=== PATIENT | male | born 1960 | race Caucasian/White ===

== ENCOUNTER 2023-01-24 11:27 | Emergency (ER) | payer OTHER, SELFPAY ==
[2023-01-24 11:32] VITALS: BP 149/83; PULSE 68; RESP 20; TEMP 36.6; O2SAT 96; BMI 33.8
--- NOTE | 2023-01-24 11:58 | ED.GENADUL1 ---
HPI - General Adult General Chief complaint: Nausea/Vomiting/Diarrhea Stated complaint: Vomiting Time Seen by Provider: 01/24/23 11:54 Source: patient Mode of arrival: walk-in History of Present Illness HPI narrative: patient developed diarrhea 2 days ago and then developed nausea this morning. He had a normal BM this morning. No urinary symptoms. No abdominal pain. No flank pain. No fever. He is uncertain about any ill contacts. he denied any recent travel or eating any potentially contaminated or spoiled foods. Related Data Home Medications Medication Instructions Recorded Confirmed albuterol sulfate 90 mcg/actuation 1 puff inhalation Q4H PRN 01/24/23 01/24/23 aerosol inhaler shortness of breath or wheezing alprazolam 0.5 mg tablet 0.25 mg PO BID PRN anxiety 01/24/23 01/24/23 aspirin 81 mg chewable tablet 1 tab PO DAILY 01/24/23 01/24/23 atorvastatin 80 mg tablet 80 mg PO QPM 01/24/23 01/24/23 Previous Rx's Medication Instructions Recorded ondansetron 4 mg disintegrating 4 mg PO Q6H PRN nausea and 01/24/23 tablet vomiting #20 tabs Allergies Allergy/AdvReac Type Severity Reaction Status Date / Time Penicillins Allergy Severe Verified 01/24/23 11:32 [facility] Medical History (Updated 01/24/23 @ 12:34 by Aime Barragan) Exam Narrative Exam Narrative: Nurses notes and vital signs reviewed and patient is not hypoxic. afebrile General: Well-appearing and in no apparent distress. Skin: Warm, dry, no pallor noted. No rash. Head: Normocephalic, atraumatic. Eye: Pupils are equal, round and EOMI. No scleral icterus. Ears, Nose, Mouth, and Throat: Oral mucosa is moist Cardiovascular: Regular Rate and Rhythm without murmur, gallop or rub. Respiratory: No accessory muscle use or respiratory distress. Lungs are clear to auscultation, no wheezing, rales or rhonchi Back: No CVA tenderness Musculoskeletal: normal ROM GI: Abdomen is soft, non-distended. Normal bowel sounds. No masses appreciated. No tenderness to palpation. No rebound, guarding, or rigidity noted. Neurological: A&O x4. No cranial nerve dysfunction observed. No truncal ataxia. Moves all extremities. Sensation intact. Psychiatric: Cooperative and interactive. Normal mood and affect. Constitutional Vital Signs - 24 hr 01/24/23 11:32 01/24/23 12:05 Temperature 97.9 F Pulse Rate [Monitor] 68 Respiratory Rate 20 Blood Pressure [Right Arm] 149/83 H Pulse Oximetry 96 Oxygen Delivery Method Room Air Room Air Course Vital Signs Vital signs: Vital Signs Temperature 97.9 F 01/24/23 11:32 Pulse Rate 68 01/24/23 11:32 Respiratory Rate 20 01/24/23 11:32 Blood Pressure 149/83 H 01/24/23 11:32 Pulse Oximetry 96 01/24/23 11:32 Oxygen Delivery Method Room Air 01/24/23 11:32 Temperature 97.9 F 01/24/23 11:32 Pulse Rate 68 01/24/23 11:32 Respiratory Rate 20 01/24/23 11:32 Blood Pressure 149/83 H 01/24/23 11:32 Pulse Oximetry 96 01/24/23 11:32 Oxygen Delivery Method Room Air 01/24/23 12:05 Medical Decision Making [facility] Narrative Medical decision making narrative: patient with resolved diarrhea now has some nausea without vomiting. Given ODT Zofran in the ED. Blood drawn and sent for testing. Elevated BUN and Cr, normal lipase, normal electrolytes and normal WBC. No elevation of LFTs or total bilirubin. Patient felt better after getting ODT Zofran. he was informed of results and discharged home with prescription for additional zofran. Lab Data Lab results reviewed: Yes I reviewed the patient's lab results Labs: Lab Results 01/24/23 Range/Units 12:10 WBC 5.5 (4.0-11.0) 10^3/uL RBC 4.07 L (4.70-6.10) 10^6/uL Hgb 12.2 L (14.0-18.0) g/dL Hct 36.5 L (42.0-54.0) % MCV 89.7 (80.0-94.0) fL MCH 30.0 (25.9-34.0) pg MCHC 33.4 (29.9-35.2) g/dL RDW 13.2 (11.0-15.0) % Plt Count 200 (150-450) 10^3/uL MPV 8.8 L (9.5-13.5) fL Neut % (Auto) 65.0 (43.0-75.0) % Lymph % (Auto) 17.4 L (20.5-60.0) % [place] % (Auto) 13.0 H (1.7-12.0) % Eos % (Auto) 3.6 (0.9-7.0) % Baso % (Auto) 0.5 (0.2-2.0) % Neut # (Auto) 3.6 (1.4-6.5) 10^3/uL Lymph # (Auto) 1.0 L (1.2-3.8) 10^3/uL [place] # (Auto) 0.7 (0.3-0.8) 10^3/uL Eos # (Auto) 0.2 (0.0-0.7) 10^3/uL Baso # (Auto) 0.0 (0.0-0.1) 10^3/uL Abs Immat Gran (auto) 0.03 (0.00-0.03) 10^3/uL Imm/Tot Granulo (auto) 0.5 (0.0-0.5) % Sodium 138 (136-145) mmol/L Potassium 5.0 (3.5-5.1) mmol/L Chloride 104 (98-107) mmol/L Carbon Dioxide 27.8 (21.0-32.0) mmol/L Anion Gap 11.2 BUN 31.0 H (7.0-18.0) mg/dL Creatinine 1.56 H (0.70-1.30) mg/dL Est GFR ( Amer) 55 L (>=60) Est GFR (Non-Af Amer) 45 L (>=60) BUN/Creatinine Ratio 19.9 Glucose 106 (74-106) mg/dL Calcium 9.4 (8.5-10.1) mg/dL Total Bilirubin 0.4 (0.2-1.0) mg/dL AST 14 L (15-37) U/L ALT 27 (16-63) U/L Alkaline Phosphatase 69 (46-116) U/L Total Protein 6.9 (6.4-8.2) g/dL Albumin 3.3 L (3.4-5.0) g/dL Globulin 3.6 g/dL Albumin/Globulin Ratio 0.9 Lipase 291.0 (73.0-393.0) U/L Discharge Plan Discharge Chief Complaint: Nausea/Vomiting/Diarrhea Clinical Impression: Gastroenteritis Patient Disposition: Home, Self-Care Time of Disposition Decision: 12:34 Prescriptions / Home Meds: New ondansetron 4 mg tablet,disintegrating 4 mg PO Q6H PRN (Reason: nausea and vomiting) Qty: 20 0RF No Action albuterol sulfate 90 mcg/actuation HFA aerosol inhaler 1 puff INHALATION Q4H PRN (Reason: shortness of breath or wheezing) alprazolam 0.5 mg tablet 0.25 mg PO BID PRN (Reason: anxiety) aspirin 81 mg tablet,chewable 1 tab PO DAILY atorvastatin 80 mg tablet 80 mg PO QPM Instructions: Gastroenteritis (ED) Stand Alone Forms: Portal Instructions Referrals: Physician,Non-Staff, MD [Primary Care Provider] - 1 week
[2023-01-24] MEDS: ONDANSETRON 4 MG RAPDIS TABLET SL (12:03)
[2023-01-24 12:15] LABS: Basophils Percent Auto 0.5 % (0.2-2.0); Eosinophils Absolute Auto 0.2 10^3/uL (0.0-0.7); Eosinophils Percent Auto 3.6 % (0.9-7.0); Hematocrit 36.5 % (42.0-54.0); Hemoglobin 12.2 g/dL (14.0-18.0); Immature Granulocytes Abs Auto 0.03 10^3/uL (0.00-0.03); Immature Granulocytes Pct Auto 0.5 % (0.0-0.5); Lymphocytes Percent Auto 17.4 % (20.5-60.0); Mean Corpuscular HGB Conc 33.4 g/dL (29.9-35.2); Mean Corpuscular Volume 89.7 fL (80.0-94.0); Mean Platelet Volume 8.8 fL (9.5-13.5); Monocytes Absolute Auto 0.7 10^3/uL (0.3-0.8); Neutrophils Absolute Auto 3.6 10^3/uL (1.4-6.5); Platelet Count 200 10^3/uL (150-450); Red Blood Count 4.07 10^6/uL (4.70-6.10); Red Cell Distribution Width 13.2 % (11.0-15.0); White Blood Count 5.5 10^3/uL (4.0-11.0)
[2023-01-24 12:28] LABS: Alanine Aminotransferase 27 U/L (16-63); Albumin Globulin Ratio 0.9; Albumin Level 3.3 g/dL (3.4-5.0); Alkaline Phosphatase 69 U/L (46-116); Anion Gap 11.2; Aspartate Amino Transferase 14 U/L (15-37); BUN Creatinine Ratio 19.9; Bilirubin Total 0.4 mg/dL (0.2-1.0); Calcium 9.4 mg/dL (8.5-10.1); Carbon Dioxide 27.8 mmol/L (21.0-32.0); Chloride 104 mmol/L (98-107); Estimated GFR (African America 55 (>=60); Estimated GFR (Non-African Ame 45 (>=60); Globulin 3.6 g/dL; Glucose 106 mg/dL (74-106); Sodium 138 mmol/L (136-145); Total Protein 6.9 g/dL (6.4-8.2)
== END 2023-01-24 12:47 | disposition home or self-care (01) ==
PROVIDERS: Emergency Provider Emergency Medicine
DX: K52.9 Noninfective gastroenteritis and colitis, unspecified (principal); Z79.899 Other long term (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; Z79.82 Long term (current) use of aspirin
CPT/HCPCS: 36415; 80053; 83690; 85025; 99283

== ENCOUNTER 2023-03-17 11:50 | Outpatient (REF) | payer OTHER, SELFPAY ==
[2023-03-17 12:35] LABS: Bilirubin Urine NEGATIVE (NEGATIVE); Blood Urine NEGATIVE (NEGATIVE); Clarity Urine CLEAR (CLEAR); Color Urine YELLOW (YELLOW); Glucose Urine UA NEGATIVE (NEGATIVE); Ketones Urine NEGATIVE (NEGATIVE); Leukocyte Esterase Urine SMALL (NEGATIVE); Nitrite Urine NEGATIVE (NEGATIVE); Protein Urine 30 mg/dL (NEG/TRACE); Specific Gravity Urine 1.015 (1.005-1.025); Urobilinogen Urine 0.2 EU/dL (0.2-1.0); pH Urine 8.5 (5.0-9.0)
[2023-03-18 22:07] LABS: Neisseria gonorrhoeae, NAA Negative (Negative)
== END 2023-03-17 11:51 | disposition home or self-care (01) ==
LOC: LAB 11:50
PROVIDERS: Visit Provider Family Medicine
DX: R36.9 Urethral discharge, unspecified (principal); R30.0 Dysuria
CPT/HCPCS: 81003; 87086; 87150; 87491; 87591

== ENCOUNTER 2023-05-13 18:04 | Emergency (ER) | payer OTHER, SELFPAY ==
[2023-05-13 18:08] VITALS: BP 136/80; PULSE 80; RESP 20; TEMP 36.6; O2SAT 97; BMI 35.5
--- NOTE | 2023-05-13 18:14 | ED_ITS ---
HPI - Nausea/Vomiting/Diarrhea General Chief complaint: Nausea/Vomiting/Diarrhea Stated complaint: dehydration, nausea and diarrhea Time Seen by Provider: 05/13/23 18:10 Source: patient Mode of arrival: walk-in Limitations: no limitations History of Present Illness HPI Narrative: 63-year-old male presents for diarrhea. It began today and there is been no blood in it. No nausea vomiting and he's been drinking liquids. No known ill contacts. He has not had a fever or any recent antibiotic use. Related Data Home Medications Medication Instructions Recorded Confirmed albuterol sulfate 90 mcg/actuation 1 puff inhalation Q4H PRN 01/24/23 05/13/23 aerosol inhaler shortness of breath or wheezing alprazolam 0.5 mg tablet 0.25 mg PO BID PRN anxiety 01/24/23 05/13/23 aspirin 81 mg chewable tablet 1 tab PO DAILY 01/24/23 05/13/23 atorvastatin 80 mg tablet 80 mg PO QPM 01/24/23 05/13/23 Previous Rx's Medication Instructions Recorded ondansetron 4 mg disintegrating 4 mg PO Q6H PRN nausea and 01/24/23 tablet vomiting #20 tabs Allergies Allergy/AdvReac Type Severity Reaction Status Date / Time Penicillins Allergy Severe Verified 01/24/23 11:32 Review of Systems ROS Narrative A ten point review of systems is negative except as noted above. [facility] Medical History (Updated 05/13/23 @ 18:43 by Frank Ashford MD) COPD (chronic obstructive pulmonary disease) ?J44.9 - Chronic obstructive pulmonary disease, unspecified (ICD-10) Hypercholesterolemia ?E78.00 - Pure hypercholesterolemia, unspecified (ICD-10) Exam Narrative Exam Narrative: Nurses note and vital signs reviewed and patient is not hypoxic. General: The patient appears well and in no apparent distress. Patient is resting comfortably on cart. Skin: Warm, dry, no pallor noted. There is no rash noted. Head: Normocephalic, atraumatic Eye: Normal conjunctiva, no drainage Ears, Nose, Mouth, and Throat: oral mucosa is moist. Nares patent. Cardiovascular: Regular Rate and Rhythm Respiratory: Patient is in no distress, no accessory muscle use, lungs are clear to auscultation, no wheezing, rales or rhonchi Back: non-tender GI: soft and nontender Musculoskeletal: The patient has no evidence of calf tenderness, no pitting edema, symmetrical pulses noted bilaterally Neurological: A&O, normal speech Psychiatric: Cooperative Constitutional Vital Signs, click to edit/add: Last Vital Signs Temp 98 F 05/13/23 18:08 Pulse 80 05/13/23 18:08 Resp 20 05/13/23 18:08 BP 136/80 05/13/23 18:08 Pulse Ox 97 05/13/23 18:08 O2 Del Method Room Air 05/13/23 18:08 Course Vital Signs Vital signs: Vital Signs Temperature 98 F 05/13/23 18:08 Pulse Rate 80 05/13/23 18:08 Respiratory Rate 20 05/13/23 18:08 Blood Pressure 136/80 05/13/23 18:08 Pulse Oximetry 97 05/13/23 18:08 Oxygen Delivery Method Room Air 05/13/23 18:08 Temperature 98 F 05/13/23 18:08 Pulse Rate 80 05/13/23 18:08 Respiratory Rate 20 05/13/23 18:08 Blood Pressure 136/80 05/13/23 18:08 Pulse Oximetry 97 05/13/23 18:08 Oxygen Delivery Method Room Air 05/13/23 18:08 MDM - Nausea/Vomiting/Diarrhea MDM Narrative Medical decision making narrative: blood work is essentially unremarkable. Thus far he's been unable to provide a stool specimen. He was given IV fluids and will be discharged home. He has a doctor's appointment tomorrow afternoon. Treatment diagnosis and follow-up were discussed with the patient. Differential Diagnosis Differential diagnosis: Likely food poisoning, gastroenteritis and dehydration Lab Data Attestation: I reviewed the patient's lab results. Labs: Lab Results 05/13/23 Range/Units 18:21 WBC 6.3 (4.0-11.0) 10^3/uL RBC 3.73 L (4.70-6.10) 10^6/uL Hgb 11.8 L (14.0-18.0) g/dL Hct 33.7 L (42.0-54.0) % MCV 90.3 (80.0-94.0) fL MCH 31.6 (25.9-34.0) pg MCHC 35.0 (29.9-35.2) g/dL RDW 12.7 (11.0-15.0) % Plt Count 232 (150-450) 10^3/uL MPV 9.0 L (9.5-13.5) fL Neut % (Auto) 56.8 (43.0-75.0) % Lymph % (Auto) 25.4 (20.5-60.0) % [place] % (Auto) 13.4 H (1.7-12.0) % Eos % (Auto) 3.5 (0.9-7.0) % Baso % (Auto) 0.6 (0.2-2.0) % Neut # (Auto) 3.5 (1.4-6.5) 10^3/uL Lymph # (Auto) 1.6 (1.2-3.8) 10^3/uL [place] # (Auto) 0.8 (0.3-0.8) 10^3/uL Eos # (Auto) 0.2 (0.0-0.7) 10^3/uL Baso # (Auto) 0.0 (0.0-0.1) 10^3/uL Abs Immat Gran (auto) 0.02 (0.00-0.03) 10^3/uL Imm/Tot Granulo (auto) 0.3 (0.0-0.5) % Sodium 135 L (136-145) mmol/L Potassium 4.2 (3.5-5.1) mmol/L Chloride 102 (98-107) mmol/L Carbon Dioxide 23.5 (21.0-32.0) mmol/L Anion Gap 13.7 BUN 29.0 H (7.0-18.0) mg/dL Creatinine 1.85 H (0.70-1.30) mg/dL Est GFR ( Amer) 45 L (>=60) Est GFR (Non-Af Amer) 37 L (>=60) BUN/Creatinine Ratio 15.7 Glucose 101 (74-106) mg/dL Calcium 9.3 (8.5-10.1) mg/dL Discharge Plan Discharge Chief Complaint: Nausea/Vomiting/Diarrhea Clinical Impression: Diarrhea Patient Disposition: Home, Self-Care Time of Disposition Decision: 18:43 Condition: Good Mode of Transportation: Private Vehicle Prescriptions / Home Meds: No Action albuterol sulfate 90 mcg/actuation HFA aerosol inhaler 1 puff INHALATION Q4H PRN (Reason: shortness of breath or wheezing) alprazolam 0.5 mg tablet 0.25 mg PO BID PRN (Reason: anxiety) aspirin 81 mg tablet,chewable 1 tab PO DAILY atorvastatin 80 mg tablet 80 mg PO QPM ondansetron 4 mg tablet,disintegrating 4 mg PO Q6H PRN (Reason: nausea and vomiting) Qty: 20 0RF Instructions: Acute Diarrhea (ED) Stand Alone Forms: Portal Instructions Referrals: Cielo Devries MD [Primary Care Provider] - 1 week
[2023-05-13 18:27] LABS: Basophils Percent Auto 0.6 % (0.2-2.0); Eosinophils Absolute Auto 0.2 10^3/uL (0.0-0.7); Eosinophils Percent Auto 3.5 % (0.9-7.0); Hematocrit 33.7 % (42.0-54.0); Hemoglobin 11.8 g/dL (14.0-18.0); Immature Granulocytes Abs Auto 0.02 10^3/uL (0.00-0.03); Immature Granulocytes Pct Auto 0.3 % (0.0-0.5); Lymphocytes Absolute Auto 1.6 10^3/uL (1.2-3.8); Lymphocytes Percent Auto 25.4 % (20.5-60.0); Mean Corpuscular Hemoglobin 31.6 pg (25.9-34.0); Mean Corpuscular Volume 90.3 fL (80.0-94.0); Monocytes Absolute Auto 0.8 10^3/uL (0.3-0.8); Monocytes Percent Auto 13.4 % (1.7-12.0); Neutrophils Absolute Auto 3.5 10^3/uL (1.4-6.5); Neutrophils Percent Auto 56.8 % (43.0-75.0); Platelet Count 232 10^3/uL (150-450); Red Blood Count 3.73 10^6/uL (4.70-6.10); Red Cell Distribution Width 12.7 % (11.0-15.0); White Blood Count 6.3 10^3/uL (4.0-11.0)
[2023-05-13] MEDS: 0.9 % SODIUM CHLORIDE 1,000 ML 1000 ML IV (18:27)
[2023-05-13 18:35] LABS: Anion Gap 13.7; BUN Creatinine Ratio 15.7; Calcium 9.3 mg/dL (8.5-10.1); Carbon Dioxide 23.5 mmol/L (21.0-32.0); Chloride 102 mmol/L (98-107); Estimated GFR (African America 45 (>=60); Estimated GFR (Non-African Ame 37 (>=60); Glucose 101 mg/dL (74-106); Potassium 4.2 mmol/L (3.5-5.1); Sodium 135 mmol/L (136-145)
== END 2023-05-13 19:17 | disposition home or self-care (01) ==
PROVIDERS: Emergency Provider Emergency Medicine; PCP Family Medicine
DX: R19.7 Diarrhea, unspecified (principal); Z79.82 Long term (current) use of aspirin; Z79.899 Other long term (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; E78.00 Pure hypercholesterolemia, unspecified; J44.9 Chronic obstructive pulmonary disease, unspecified
CPT/HCPCS: 36415; 80048; 85025; 87045; 99284

== ENCOUNTER 2023-06-21 15:31 | Emergency (ER) | payer OTHER, SELFPAY ==
[2023-06-21 15:43] VITALS: BP 108/67; PULSE 76; RESP 18; TEMP 36.5; O2SAT 97; BMI 32.9
--- NOTE | 2023-06-21 15:50 | ED.NAVMDI1 ---
HPI - Nausea/Vomiting/Diarrhea General Chief complaint: Nausea/Vomiting/Diarrhea Stated complaint: dehydration, diarrhea Time Seen by Provider: 06/21/23 15:50 Source: patient Mode of arrival: walk-in History of Present Illness HPI Narrative: patient here was three or four days episode of diarrhea. Is turns out he was here just over a month ago with diarrhea episodes. There is no specific etiology determined and he did fine. He has not been on any antibiotics. He's not travel history. No other household members are ill. He thinks is from dietary indiscretion with food that he always gets diarrhea from nonetheless he's never had a colonoscopy just decided not to do that. He's never seen blood in his stool, the blood the stools not been black or discolored. His urine is yellow color he's not having any decrease in urinary output but he feels like he might be dehydrated. He does not have nausea. He does have a little sore throat from coughing. Related Data Home Medications Medication Instructions Recorded Confirmed albuterol sulfate 90 mcg/actuation 1 puff inhalation Q4H PRN 01/24/23 05/13/23 aerosol inhaler shortness of breath or wheezing alprazolam 0.5 mg tablet 0.25 mg PO BID PRN anxiety 01/24/23 05/13/23 aspirin 81 mg chewable tablet 1 tab PO DAILY 01/24/23 05/13/23 atorvastatin 80 mg tablet 80 mg PO QPM 01/24/23 05/13/23 Previous Rx's Medication Instructions Recorded ondansetron 4 mg disintegrating 4 mg PO Q6H PRN nausea and 01/24/23 tablet vomiting #20 tabs Allergies Allergy/AdvReac Type Severity Reaction Status Date / Time Penicillins Allergy Severe Verified 06/21/23 15:43 pneumonia shot AdvReac Intermediate Uncoded 06/21/23 15:43 [facility] Medical History (Updated 06/21/23 @ 17:27 by Rubén Seth MD) COPD (chronic obstructive pulmonary disease) ?J44.9 - Chronic obstructive pulmonary disease, unspecified (ICD-10) Hypercholesterolemia ?E78.00 - Pure hypercholesterolemia, unspecified (ICD-10) Social History Smoking status: Current every day smoker Exam Narrative Exam Narrative: vital signs are stable is not tachycardic, blood pressures normal pulse oximetry normal. He is a good historian and appears in no distress. He indicates that several years ago he did have three core coronary stents placed due to coronary artery disease. He's been doing very good he stopped using tobacco products. He says he puffs once in a while on a cigar. Otherwise constitutional skin is warm dry mucous membranes are moist and pink he does have some tenting of the skin but as per fissural peripheral perfusion is good with normal capillary fill. Respiratory there is no wheeze rales or rhonchi heart sounds are normal. Abdomen is not distended he's got no guarding rebound rigidity or peritoneal findings. No masses were noted. Constitutional Vital Signs, click to edit/add: Last Vital Signs Temp 97.7 F 06/21/23 15:43 Pulse 76 06/21/23 15:43 Resp 18 06/21/23 15:43 BP 108/67 06/21/23 15:43 Pulse Ox 97 06/21/23 15:43 O2 Del Method Room Air 06/21/23 15:43 Course Vital Signs Vital signs: Vital Signs Temperature 97.7 F 06/21/23 15:43 Pulse Rate 76 06/21/23 15:43 Respiratory Rate 18 06/21/23 15:43 Blood Pressure 108/67 06/21/23 15:43 Pulse Oximetry 97 06/21/23 15:43 Oxygen Delivery Method Room Air 06/21/23 15:43 Temperature 97.7 F 06/21/23 15:43 Pulse Rate 76 06/21/23 15:43 Respiratory Rate 18 06/21/23 15:43 Blood Pressure 108/67 06/21/23 15:43 Pulse Oximetry 97 06/21/23 15:43 Oxygen Delivery Method Room Air 06/21/23 15:43 MDM - Nausea/Vomiting/Diarrhea MDM Narrative Medical decision making narrative: this patient presents with what appears to be benign diarrheal illness that he relates to food intake. His white blood cell count and chemistries are stable. He was given IV fluids based on his historical loss of fluids but his BUN/creatinine are essentially normal. I've urged him to continue reconsider his hesitation to getting a colonoscopy as a screening test. Lab Data Labs: Lab Results 06/21/23 Range/Units 16:15 WBC 4.8 (4.0-11.0) 10^3/uL RBC 3.88 L (4.70-6.10) 10^6/uL Hgb 12.1 L (14.0-18.0) g/dL Hct 36.1 L (42.0-54.0) % MCV 93.0 (80.0-94.0) fL MCH 31.2 (25.9-34.0) pg MCHC 33.5 (29.9-35.2) g/dL RDW 12.7 (11.0-15.0) % Plt Count 198 (150-450) 10^3/uL MPV 9.5 (9.5-13.5) fL Neut % (Auto) 49.6 (43.0-75.0) % Lymph % (Auto) 31.1 (20.5-60.0) % [place] % (Auto) 12.8 H (1.7-12.0) % Eos % (Auto) 5.7 (0.9-7.0) % Baso % (Auto) 0.4 (0.2-2.0) % Neut # (Auto) 2.4 (1.4-6.5) 10^3/uL Lymph # (Auto) 1.5 (1.2-3.8) 10^3/uL [place] # (Auto) 0.6 (0.3-0.8) 10^3/uL Eos # (Auto) 0.3 (0.0-0.7) 10^3/uL Baso # (Auto) 0.0 (0.0-0.1) 10^3/uL Abs Immat Gran (auto) 0.02 (0.00-0.03) 10^3/uL Imm/Tot Granulo (auto) 0.4 (0.0-0.5) % Sodium 138 (136-145) mmol/L Potassium 4.3 (3.5-5.1) mmol/L Chloride 105 (98-107) mmol/L Carbon Dioxide 26.2 (21.0-32.0) mmol/L Anion Gap 11.1 BUN 31.0 H (7.0-18.0) mg/dL Creatinine 1.73 H (0.70-1.30) mg/dL Est GFR ( Amer) 49 L (>=60) Est GFR (Non-Af Amer) 40 L (>=60) BUN/Creatinine Ratio 17.9 Glucose 100 (74-106) mg/dL Calcium 8.9 (8.5-10.1) mg/dL Discharge Plan Discharge Chief Complaint: Nausea/Vomiting/Diarrhea Clinical Impression: Diarrhea Patient Disposition: Home, Self-Care Time of Disposition Decision: 17:27 Prescriptions / Home Meds: No Action albuterol sulfate 90 mcg/actuation HFA aerosol inhaler 1 puff INHALATION Q4H PRN (Reason: shortness of breath or wheezing) alprazolam 0.5 mg tablet 0.25 mg PO BID PRN (Reason: anxiety) aspirin 81 mg tablet,chewable 1 tab PO DAILY atorvastatin 80 mg tablet 80 mg PO QPM ondansetron 4 mg tablet,disintegrating 4 mg PO Q6H PRN (Reason: nausea and vomiting) Qty: 20 0RF Additional Instructions: clear fluids for the next twenty-four hours. May use [id number] Imodium Stand Alone Forms: Portal Instructions Referrals: Cielo Devries MD [Primary Care Provider] - 1 week
[2023-06-21] MEDS: 0.9 % SODIUM CHLORIDE 1,000 ML 999 ML IV (16:34)
[2023-06-21 16:35] LABS: Basophils Percent Auto 0.4 % (0.2-2.0); Eosinophils Absolute Auto 0.3 10^3/uL (0.0-0.7); Eosinophils Percent Auto 5.7 % (0.9-7.0); Hematocrit 36.1 % (42.0-54.0); Hemoglobin 12.1 g/dL (14.0-18.0); Immature Granulocytes Abs Auto 0.02 10^3/uL (0.00-0.03); Immature Granulocytes Pct Auto 0.4 % (0.0-0.5); Lymphocytes Absolute Auto 1.5 10^3/uL (1.2-3.8); Lymphocytes Percent Auto 31.1 % (20.5-60.0); Mean Corpuscular HGB Conc 33.5 g/dL (29.9-35.2); Mean Corpuscular Hemoglobin 31.2 pg (25.9-34.0); Mean Platelet Volume 9.5 fL (9.5-13.5); Monocytes Absolute Auto 0.6 10^3/uL (0.3-0.8); Monocytes Percent Auto 12.8 % (1.7-12.0); Neutrophils Absolute Auto 2.4 10^3/uL (1.4-6.5); Neutrophils Percent Auto 49.6 % (43.0-75.0); Platelet Count 198 10^3/uL (150-450); Red Blood Count 3.88 10^6/uL (4.70-6.10); Red Cell Distribution Width 12.7 % (11.0-15.0); White Blood Count 4.8 10^3/uL (4.0-11.0)
[2023-06-21 16:38] LABS: Anion Gap 11.1; BUN Creatinine Ratio 17.9; Calcium 8.9 mg/dL (8.5-10.1); Carbon Dioxide 26.2 mmol/L (21.0-32.0); Chloride 105 mmol/L (98-107); Estimated GFR (African America 49 (>=60); Estimated GFR (Non-African Ame 40 (>=60); Glucose 100 mg/dL (74-106); Potassium 4.3 mmol/L (3.5-5.1); Sodium 138 mmol/L (136-145)
--- OUTSIDE RECORDS SUMMARY | 2023-07-14 00:16 | XMS_ITS | CCD ---
Author Name Unknown Address [address] [place] [address] Organization [facility] Care Team Providers Care Shuttle Driver Name Role Phone DO Wagner Marrufo Attending Provider Brock Modi Unavailable Wagner Marrufo Unavailable DO Wagner Marrufo Attending Provider MD Brock Modi Primary Care Provider MD Janes Dentq Admit Provider MD Barbara Rivero Attending Provider Brock Modi Unavailable Unavailable Unavailable Adi Campos Unavailable ZELALEM Faustin Attending Provider [phone] MD Adi Campos Attending Provider DR CAR LIGHT Attending Unavailable KULDEEP, DR CAR Torres Admitting Unavailable NIKIA Moser, DR JUSTIN Urbano Consulting Unavailable LY, DR BROCK Urbano Primary Care Unavailable DR CAR LIGHT Consulting Unavailable SARITA RUSSELL Consulting Unavailable TEE LEWIS Consulting Unavailable SISTER, JUSTIN Consulting Unavailable LY, DR BROCK Urbano Consulting Unavailable LY, DR BROCK Urbano Primary Care Unavailable LY, DR BROCK Urbano Attending Unavailable LY, DR BROCK Urbano Admitting Unavailable JANINE SCOTT Consulting Unavailable LY, DR BROCK Urbano Primary Care Unavailable JANINE SCOTT Attending Unavailable JANINE SCOTT Admitting Unavailable MALIKA, DR RUBÉN Baez Consulting Unavailmelissa DALY, DR RUBÉN Baez Attending Unavailmelissa DALY, DR RUBÉN Baez Admitting Unavailmelissa e MODI, DR BROCK Urbano Primary Care Unavailable LNONIE, DR ARLIN Simpson Consulting Unavailable LONNIE, DR ARLIN Simpson Attending Unavailable LONNIE, DR ARLIN Simpson Admitting Unavailable MODI, DR BROCK Urbano Primary Care Unavailable AHADÁN, CYNTHIA Consulting Unavailable LONNIE, DR ARLIN Simpsno Consulting Unavailable LONNIE, DR ARLIN Simpson Attending Unavailable LONNIE, DR ARLIN Simpson Admitting Unavailable MODI, DR BROCK Urbano Primary Care Unavailable DAREK MARX Consulting Unavailable EBEN, COLIN Consulting Unavailable EBEN, COLIN Attending Unavailable EBEN, COLIN Admitting Unavailable MODI, DR BROCK Urbano Primary Care Unavailable AHDOOT, CYNTHIA Consulting Unavailable EBEN, COLIN Consulting Unavailable EBEN, COLIN Attending Unavailable EBEN, COLIN Admitting Unavailable MODI, DR BROCK Urbano Primary Care Unavailable XIOMARA SCHNEIDER Consulting Unavailable LUKASZ ., DR LUIS Consulting Unavailable HAY ., DR LUIS Attending Unavailable HAY ., DR LUIS Admitting Unavailable LY, DR BROCK Urbano Primary Care Unavailable Janine Faustin Admitting Unavailable Janine Faustin Attending Unavailable Brock Modi Primary Care Unavailable Wagner Marrufo Admitting Unavailable Wagner Marrufo Attending Unavailable Farida Berrios Consulting Unavailable Galo Dent Admitting Unavailable Barbara Rivero Attending Unavailable Brock Modi Primary Care Unavailable Zeb Webber Consulting Unavailable Mohsen Gonsalves Consulting Unavailable Alok Silva Consulting Unavail able Josef Diane Consulting Unavailable Rene Ott Consulting Unavailab Janine Levi Consulting Unavailable Iris Suero Consulting Unavailable Ameya Pierre Consulting Unavailab Abbey Bai Consulting Unavailable Anju Daniel Consulting Unavailable Wilma Blanco Consulting Unavailable Chafrancie, Kamal Admitting Unavailable Chafrancie Kamal Attending Unavailable Brock Modi Primary Care Unavailable Viral Yang Unavailable Akbar, Dr. Alok Gonzalez Attending Unava ilsobeida Modi, Dr. Brock Case Primary Care UnaJanine Lu Attending Unavailable Janine Cunha Referring Unavailable Ly, Dr. Brock Case Primary Care Unalacy Modi, Dr. Brock Case Primary Care UnaJanine Lu Attending Unavailable Janine Cunha Referring Unavailable Modi, Dr. Brock Case Primary Care Lea ailsobeida Webber, Dr. Alok Gonzalez Attending Leami hernandez Webber, Dr. Alok Gonzalez Referring Ricardo Modi, Dr. Brock Case Primary Care Lea ailsobeida Allergies Allergy Classification Reported Allergen(s) Allergy Type Date of Onset Reaction(s) Facility (20 sources) Ciprofloxacin Drug Allergy Nausea & Blurred vision, Comment:nausea and blurred vision [facility] [place] [facility] Other (20 sources) Substance with penicillin structure and antibacterial mechanism of action (substance) Drug allergy Edema, Unknown [facility] [place] [facility] Other (20 sources) Pneumococcal 7-Zulma Conj Vacc Drug allergy undefined, Comment:pneumonoco ccal 23 [facility] [place] [facility] Other (13 sources) Penicillins; Translations: [Penicillins] Propensity to adverse reactions 013 Gastrointestinal Upset, [facility] (4 sources) Pneumococcal vaccine; Translations: [pneumococcal vaccine] Drug Allergy 023 Redness of Skin [facility] (8 sources) Pneumococcal vaccine; Translations: [Pneumococcal Vaccines] Drug Allergy [facility] 250 DO Work Phone: (2 sources) Penicillin Drug Allergy 016 Unknown [facility] Other (2 sources) patient allergy list reviewed by nurse or physicia Propensity to adverse reactions 016 Comment:Done [facility] [place] [facility] Other (2 sources) Allergies Reconciled Propensity to adverse reactions Unknown [facility] Other Medications Current Medications Medication Drug Class(es) Dates Sig (Normalized) Sig (Original) acetaminophen 325 mg oral tablet (3 sources) Start: 10-10-2022 take 2 tablets by mouth every six hours Acetaminophen (Tylenol) 325 mg Tablet Active 650 MG PO Q6H October 10, 2022 12:00am [facility] - (5 sources) Start: 07-30-2022 AeroChamber MV - as directed Jul, Active [id number] 200 actuat albuterol 0.09 mg/actuat metered dose inhaler (20 sources) beta2-Adrenergic Agonist Start: 10-10-2022 take 1 puff(s) by inhalation every four hours Albuterol Sulfate Active 1 PUFF INHALATION Q4H October 10, 2022 12:00am Albuterol Sulfat e (2.5 MG/3ML) 0.083% Inhalation Nebulization Solution USE 1 UNIT DOSE EVERY 4-6 HOURS NEEDED FOR WHEEZING . Quantity: 0 Refills: 0 Ordered: 24-Dec-2022 DO Active Albuterol Sulfat e (2.5 MG/3ML) 0.083% INHALE 1 VIAL VIA NEBULIZER 4 TIMES DAILY NEEDED FOR SHORTNESS OF BREATH OR WHEEZING for 7 Active take 1 puff(s) by mo uth every four hours as needed Albuterol Sulfate HFA 108 (90 Base) MCG/ ACT INHALE 1 PUFF BY MOUTH EVERY 4 HOURS NEEDED for 30 Active Albuterol Sulfat e (2.5 MG/3ML) 0.083% 3 mL as needed Inhalation every 6 hrs; shortness of breath or wheezing Active ALPRAZolam 1 mg oral tablet (9 sources) Benzodiazepine Start: 06-04-2023 take 1 tablet by mouth twice daily as needed ALPRAZolam 1 MG TAKE 1 TABLET BY MOUTH TWICE A DAY NEEDED for 30 May, Active Start: 04-05-2023 ALPRAZolam 1 M G TAKE 1 TABLET BY MOUTH TWICE A DAY NEEDED FOR 30 DAYS for 30 Mar, Active Start: 02-02-2023 ALPRAZolam 1 M G TAKE 1 TABLET BY MOUTH TWICE A DAY NEEDED FOR 30 DAYS for 30 Jan, Active Start: 01-29-2023 take 1 tablet by da th twice daily as needed ALPRAZolam 1 MG 1 tablet Orally Twice a day prn for 30 days Jan, Active Start: 01-01-2023 take 1 tablet by da th twice daily as needed ALPRAZolam 1 MG 1 tablet Orally Twice a day prn for 30 days Dec, Active Start: 12-04-2022 take 0.5 tablet by m outh twice daily as needed ALPRAZolam 0.5 MG 1/2 tab Orally Twice a day prn for 30 days November, Active aspirin 81 mg chewable tablet (20 sources) Platelet Aggregation Inhibitor, Nonsteroidal Anti-inflammatory Drug Start: 10-12-2022 take 1 tablet by mouth once daily Aspirin (Children's Aspirin) 81 mg Tablet,Chewable Active 81 MG PO Daily 90 90 October 12, 2022 12:00am take 1 tablet by da th every twenty-four hours Aspirin 81 81 MG 1 tablet Orally Once a day Active Fluticasone Propion-Salmeterol (16 sources) Corticosteroid, beta2-Adrenergic Agonist Start: 10-13-2022 Fluticasone Propion-Salmeterol (Advair Diskus) 250-50 mcg/dose blister with device Active 1 INH INHALATION Twice daily 60 October 13, 2022 12:00am Start: 10-02-2021 Advair HFA 115 -21 MCG/ACT Inhalation Aerosol Quantity: 12 Refills: 0 Ordered: 16-Nov-2021 DO Start : 02-Oct-2021 Active take 1 puff(s) by in halation twice daily Advair Diskus 250-50 MCG/ACT Inhalation Aerosol Powder Breath Activated INHALE 1 PUFF TWICE DAILY. Quantity: 0 Refills: 0 Ordered: 15-Oct-2022 DO Active take 1 puff(s) by in halation twice daily Advair Diskus 250-50 MCG/ACT 1 puff Inhalation Twice a day Active nebulizer machine (5 sources) nebulizer breanne e 1 kit inhalation 4 times daily Active Nitro Sublingual 0.4 0.4mg (16 sources) Nitro Sublingual 0.4 0.4mg 1 Sublingual Every 5min x3 Active nitroglycerin 0.4 mg sublingual tablet (11 sources) Nitrate Vasodilator Start: 10-13-19 Nitroglycerin Active 0.4 MG SUBLINGUAL Q5M October 12, 2022 12:00am do not exceed 3 doses per episode Ondansetron (1 source) Serotonin-3 Receptor Antagonist Zofran Active predniSONE 20 mg oral tablet (10 sources) Start: 02-05-20 take 2 tablets by mouth every twenty-four hours predniSONE 20 MG 2 tablets Orally Once a day for 5 days Jan, Active Start: 11-12-2022 take 2 tablets by mo [facility] every twenty-four hours predniSONE 20 MG 2 tablets Orally Once a day for 5 days Oct, Active Start: 07-30-2022 take 1 tablet by da th every twenty-four hours predniSONE 10 MG 1 tablet Orally Once a day for 30 day(s) 4 tabs daily x 4 days, then 3 tab daily x 4 days, then 2 daily x 4 days, then 1 daily x 7 days Jul, Not-Taking ProAir HFA 108 (90 Base) MCG/ACT (11 sources) take 1 puff(s) by inhalation every four hours as needed ProAir HFA 108 (90 Base) MCG/ACT 1 puff as needed Inhalation every 4 hrs Active spironolactone 25 mg oral tablet (20 sources) Aldosterone Antagonist Start: 2022 take 25 mg by mouth once daily in the morning Spironolactone Active 25 MG PO Every morning October 13, 2022 12:00am sulfamethoxazole 800 mg / trimethoprim 160 mg oral tablet (1 source) Dihydrofolate Reductase Inhibitor Antibacterial, Sulfonamide Antimicrobial take 1 tablet by mouth every twelve hours Bactrim DS 800-160 MG 1 tablet Orally Twice a day for 5 days Active ticagrelor 90 mg oral tablet (20 sources) Start: 2022 take 1 tablet by mouth twice daily Ticagrelor (Brilinta) 90 mg Tablet Active 90 MG PO Twice daily October 12, 2022 12:00am Brilinta 90mg Ta kke as directed Active Trelegy Ellipta 100-62.5-25 MCG/INH (8 sources) Start: 10-20-2022 take 1 puff(s) by inhalation once daily Trelegy Ellipta 100-62.5-25 MCG/INH 1 puff Inhalation Once a day for 30 days Sep, Active valsartan 160 mg oral tablet (20 sources) Angiotensin 2 Receptor Maryjane Start: 10-13-2022 take 160 mg by mouth once daily at bedtime Valsartan Active 160 MG PO Daily at bedtime October 13, 2022 12:00am Completed/Discontinued Medications Medication Drug Class(es) Dates Sig (Normalized) Sig (Original) atorvastatin 80 mg oral tablet (8 sources) HMG-CoA Reductase Inhibitor Start: 10-21-2022 take 1 tablet by mouth at bedtime Atorvastatin Calcium 80 MG Oral Tablet TAKE 1 TABLET AT BEDTIME. Quantity: 90 Refills: 3 Ordered: 21-Oct-2022 Janine Wilde Start : 21-Oct-2022 Active doxycycline hyclate 100 mg delayed release oral tablet (4 sources) Tetracycline-class Drug take 1 tablet by mouth every twelve hours Doxycycline Hyclate 100 MG 1 tablet Orally Twice a day for 10 days Not-Taking/PRN Fluticasone Propionate (8 sources) Corticosteroid Start: 10-10-2022 End: 10-13-2022 Fluticasone Propionate Discontinued 1 INH INHALATION Twice daily October 10, 2022 12:00am October 13, 2022 12:26pm Start: 07-30-2022 take 1 puff(s) by in halation twice daily Flovent Diskus 100 MCG/ACT 1 puff Inhalation Twice a day for 30 days Jul, Not-Taking 30 actuat fluticasone furoate 0.1 mg/actuat / umeclidinium 0.0625 mg/actuat / vilanterol 0.025 mg/actuat dry powder inhaler (9 sources) Anticholinergic, Corticosteroid, beta2-Adrenergic Agonist Trelegy Ellipta 100-62.5-25 MCG/ACT Inhalation Aerosol Powder Breath Activated USE DIRECTED Quantity: 0 Refills: 0 Ordered: 21-Oct-2022 DO Active take 1 puff(s) by inhalation onc e daily Trelegy Ellipta 100-62.5-25 MCG/ACT 1 puff Inhalation Once a day Active losartan potassium 100 mg oral tablet (20 sources) Angiotensin 2 Receptor Maryjane Start: 10-10-2022 End: 10-13-2022 take 100 mg by mouth once daily Losartan Discontinued 100 MG PO Daily October 10, 2022 12:00am October 13, 2022 12:14pm meloxicam 15 mg oral tablet (5 sources) Nonsteroidal Anti-inflammatory Drug take 1 tablet by mouth every twenty-four hours Meloxicam 15 MG 1 tablet Orally Once a day Not-Taking metoprolol tartrate 25 mg oral tablet (3 sources) beta-Adrenergic Maryjane Start: 12-24-2022 take 1 tablet by mouth twice daily Metoprolol Tartrate 25 MG Oral Tablet Take 1 tablet twice a day Quantity: 180 Refills: 3 Ordered: 28-Jan-2023 Alok Webber DO Start : 24-Dec-2022 Active promethazine hydrochloride 12.5 mg oral tablet (5 sources) Phenothiazine take 1 tablet by mouth four times daily as needed Promethazine HCl 12.5 MG 1 tablet as needed Orally 4 times per day; nausea and vomiting Not-Taking triamcinolone acetonide 40 mg/ml injectable suspension (20 sources) Corticosteroid Start: 09-09-2022 Kenalog-40 November, 40 mg Problems Active Problems Problem Classification Problem Date Documented Date Episodic/Chronic Acute myocardial infarction (8 sources) Myocardial infarction; Translations: [Non-ST elevation (NSTEMI) myocardial infarction] Onset: 10-10-2022 10-10-2022 Chronic Allergic reactions (11 sources) Allergy status to other antibiotic agents status; Translations: [Drug allergy, antibiotic] Episodic Anxiety disorders (20 sources) Anxiety; Translations: [Other specified anxiety disorders] Chronic Aortic; peripheral; and visceral artery aneurysms (2 sources) Abdominal aortic aneurysm without rupture; Translations: [Abdominal aortic aneurysm, without rupture, unspecified] Chronic Asthma (18 sources) Asthma without status asthmaticus; Translations: [Unspecified asthma, uncomplicated] Chronic Cardiac dysrhythmias (6 sources) EKG: ventricular tachycardia; Translations: [Ventricular tachycardia seen on residential monitor] 10-11-2022 Chronic Cardiac dysrhythmias (4 sources) Sinus tachycardia; Translations: [Other specified cardiac dysrhythmias] Episodic Chronic obstructive pulmonary disease and bronchiectasis (20 sources) Acute exacerbation of chronic obstructive airways disease; Translations: [Chronic obstructive pulmonary disease with (acute) exacerbation] Onset: 05-26-2017 Chronic Chronic obstructive pulmonary disease and bronchiectasis (12 sources) Bronchitis; Translations: [Bronchitis, not specified as acute or chronic] Episodic Conduction disorders (15 sources) Complete atrioventricular block; Translations: [Atrioventricular block, complete] Onset: 10-10-2022 10-11-2022 Chronic Coronary atherosclerosis and other heart disease (20 sources) Coronary arteriosclerosis; Translations: [Atherosclerotic heart disease of [place] coronary artery without angina pectoris] Onset: 10-28-2022 Chronic Disorders of lipid metabolism (8 sources) Mixed hyperlipidemia; Translations: [Mixed hyperlipidemia] Chronic Essential hypertension (20 sources) Hypertensive disorder; Translations: [Essential (primary) hypertension] Onset: 10-10-2022 10-10-2022 Chronic Genitourinary symptoms and ill-defined conditions (4 sources) Dysuria; Translations: [Dysuria] Episodic Hypertension with complications and secondary hypertension (1 source) Hypertensive urgency; Translations: [HYPERTENSIVE URGENCY] Onset: 10-13-2022 Chronic Immunizations and screening for infectious disease (16 sources) Vaccination given; Translations: [Encounter for immunization] Episodic Joint disorders and dislocations; trauma-related (18 sources) Derangement of medial meniscus of left knee; Translations: [Other meniscus derangements, unspecified medial meniscus, left knee] Onset: 05-02-2018 Chronic Nausea and vomiting (18 sources) Nausea; Translations: [Nausea] Onset: 07-10-2022 Episodic Osteoarthritis (20 sources) Osteoarthritis of right knee joint; Translations: [Unilateral primary osteoarthritis, right knee] Onset: 03-16-2019 Chronic Other aftercare (1 source) Other half-way (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; Translations: [OTH CORRECTION CURRENT DRUG THERAPY] Onset: 10-13-2022 Episodic Other circulatory disease (2 sources) Elevated blood-pressure reading without diagnosis of hypertension; Translations: [Elevated blood-pressure reading, without diagnosis of hypertension] Episodic Other connective tissue disease (18 sources) Muscle pain; Translations: [Myalgia, unspecified site] Episodic Other connective tissue disease (18 sources) Spasm; Translations: [Other muscle spasm] Episodic Other connective tissue disease (3 sources) Other specified soft tissue disorders; Translations: [OTHER SPEC SOFT TISSUE DISORDERS] Onset: 09-07-2022 Episodic Other connective tissue disease (1 source) Synovial cyst of popliteal space [Garcia], right knee; Translations: [SYNOVIAL CYST POP SPACE RIGHT KNEE] Onset: 09-09-2022 Episodic Other lower respiratory disease (3 sources) Hypoxemia; Translations: [Hypoxemia] 10-11-2022 Episodic Other lower respiratory disease (4 sources) Hypoxemia; Translations: [Hypoxemia] Onset: 10-10-2022 10-13-2022 Episodic Other lower respiratory disease (20 sources) Lung field abnormal; Translations: [Other nonspecific abnormal finding of lung field] Onset: 08-01-2015 Episodic Other lower respiratory disease (9 sources) Dyspnea on exertion; Translations: [Other forms of dyspnea] Episodic Other lower respiratory disease (1 source) Personal history of pneumonia (recurrent); Translations: [PERSONAL HX OF PNEUMONIA RECURRENT] Onset: 10-13-2022 Episodic Other lower respiratory disease (2 sources) Dyspnea; Translations: [Other forms of dyspnea] Episodic Other non-traumatic joint disorders (2 sources) Pain in right knee Episodic Other non-traumatic joint disorders (2 sources) Effusion, right knee Episodic Other non-traumatic joint disorders (14 sources) Shoulder joint pain; Translations: [Pain in right shoulder] Onset: 05-02-2018 Episodic Other non-traumatic joint disorders (18 sources) Joint pain; Translations: [Pain in unspecified joint] Episodic Other non-traumatic joint disorders (1 source) Hip pain; Translations: [Hip joint pain] Episodic Other nutritional; endocrine; and metabolic disorders (19 sources) Obesity; Translations: [Obesity, unspecified] Chronic Other nutritional; endocrine; and metabolic disorders (4 sources) Obese class I; Translations: [Body mass index (BMI) 32.0-32.9, adult] Chronic Other screening for suspected conditions (not mental disorders or infectious disease) (18 sources) Tomography - chest abnormal; Translations: [Abnormal findings on diagnostic imaging of other specified body structures] Onset: 03-31-2019 Chronic Mariama-; endo-; and myocarditis; cardiomyopathy (except that caused by tuberculosis or sexually transmitted disease) (8 sources) Cardiomyopathy; Translations: [Other primary cardiomyopathies] Chronic Pleurisy; pneumothorax; pulmonary collapse (17 sources) Atelectasis; Translations: [Atelectasis] Onset: 11-03-2022 Episodic Pneumonia (except that caused by tuberculosis or sexually transmitted disease) (18 sources) Pneumonia; Translations: [Pneumonia, unspecified organism] Episodic Residual codes; unclassified (3 sources) Sleep apnea; Translations: [Sleep apnea, unspecified] 10-11-2022 Chronic Residual codes; unclassified (4 sources) Sleep apnea, unspecified; Translations: [Unspecified sleep apnea] Onset: 10-10-2022 10-13-2022 Chronic Residual codes; unclassified (16 sources) Sleep disorder; Translations: [Other sleep disorders] Chronic Residual codes; unclassified (16 sources) Obstructive sleep apnea syndrome; Translations: [Obstructive sleep apnea (adult) (pediatric)] Chronic Residual codes; unclassified (2 sources) Obstructive sleep apnea (adult) (pediatric) Chronic Residual codes; unclassified (1 source) Other sleep disorders Chronic Residual codes; unclassified (6 sources) Tobacco use; Translations: [Tobacco use disorder] Onset: 10-10-2022 Episodic Residual codes; unclassified (8 sources) Tobacco user; Translations: [Tobacco use] Onset: 07-29-2015 10-10-2022 Episodic Residual codes; unclassified (11 sources) Contact with and (suspected) exposure to other hazardous substances; Translations: [Exposure to potentially hazardous substance] Episodic Residual codes; unclassified (16 sources) Tobacco dependence syndrome; Translations: [Tobacco use] Episodic Septicemia (except in labor) (16 sources) Sepsis; Translations: [Sepsis, unspecified organism] Episodic Spondylosis; intervertebral disc disorders; other back problems (18 sources) Neck pain; Translations: [Cervicalgia] Episodic Substance-related disorders (20 sources) 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; Translations: [Nicotine dependence, cigarettes, with unspecified nicotine-induced disorders] Onset: 10-13-2022 Chronic Comment on above: 5-6 cig daily; 8 cigs daily; Unclassified (17 sources) Abdominal aortic aneurysm, without rupture, unspecified; Translations: [Abdominal aortic aneurysm, without rupture, unspecified] Unclassified (1 source) CONTACT W/AND (SUSP) EXPOS COVID-19; Translations: [CONTACT W/AND (SUSP) EXPOS COVID-19] Onset: 07-16-2022 Unclassified (2 sources) COUGH, UNSPECIFIED; Translations: [COUGH, UNSPECIFIED] Onset: 07-08-2022 Unclassified (1 source) Ventricular tachycardia, unspecified; Translations: [Ventricular tachycardia, unspecified] Onset: 10-10-2022 Unclassified (1 source) Pain in right knee; Translations: [Pain in right knee] Onset: 09-09-2022 Unclassified (2 sources) Other and unspecified bacterial vaccines causing adverse effect in therapeutic use; Translations: [Other and unspecified bacterial vaccines causing adverse effect in therapeutic use] Onset: 05-04-2018 Urinary tract infections (1 source) Acute cystitis without hematuria Episodic Past or Other Problems Problem Classification Problem Date Documented Da te Episodic/Chronic Fluid and electrolyte disorders (1 source) Dehydration; Translations: [DEHYDRATION] Onset: 07-16-2022 Episodic Malaise and fatigue (11 sources) Fatigue; Translations: [Other fatigue] Onset: 03-16-2019 Episodic Noninfectious gastroenteritis (1 source) Noninfective gastroenteritis and colitis, unspecified; Translations: [NONINFECTIVE GE AND COLITIS UNS] Onset: 07-12-2022 Episodic Other gastrointestinal disorders (1 source) Diarrhea, unspecified; Translations: [DIARRHEA UNSPECIFIED] Onset: 07-16-2022 Episodic Other lower respiratory disease (3 sources) Shortness of breath; Translations: [SHORTNESS OF BREATH] Onset: 02-03-2022 Episodic Other non-traumatic joint disorders (2 sources) Arthralgia of the pelvic region and thigh; Translations: [Pain in joint, pelvic region and thigh] Onset: 08-24-2016 Episodic Residual codes; unclassified (2 sources) Dyssomnia; Translations: [Other sleep disturbances] Onset: 07-29-2015 Episodic Screening and history of mental health and substance abuse codes (1 source) Personal history of nicotine dependence; Translations: [PERSONAL HISTORY OF NICOTINE DEPEND] Onset: 07-16-2022 Episodic Unclassified (1 source) Adverse effects of other and unspecified bacterial vaccines; Translations: [Adverse effects of other and unspecified bacterial vaccines] Unclassified (1 source) COUGH, UNSPECIFIED; Translations: [COUGH, UNSPECIFIED] Onset: 07-05-2022 Unclassified (1 source) Abdominal aortic aneurysm (AAA) without rupture, unspecified part I71.40 Results Test Name Value Interpretation Reference Range Facil ity Office Visit (Cardiology)on 12-24-2022 Follow-up visit Diagnoses/Problems Assessed Coronary artery disease involving [place] coronary artery of [place] heart without angina pectoris (414.01) (I25.10) Preoperative cardiovascular examination (V72.81) (Z01.810) Nonischemic cardiomyopathy (425.4) (I42.8) Past myocardial infarction (412) (I25.2) COPD, moderate (496) (J44.9) Class 2 obesity with body mass index (BMI) of 35.0 to 35.9 in adult (278.00,V85.35) (E66.9,Z68.35) Current smoker (305.1) (F17.200) 8 cigs daily Sinus tachycardia (427.89) (R00.0) Orders Class 2 obesity with body mass index (BMI) of 35.0 to 35.9 in adult Healthy Weight Tips; Status:Complete - Retrospective Authorization; Done: 24Dec2022 Some eating tips that can help you lose weight.; Status:Complete - Retrospective Authorization; Done: 24Dec2022 Preoperative cardiovascular examination IO EKG Electrocardiogram- 12 Lead; Status:Complete; Done: 24Dec2022 SocHx: Current smoker You need to quit smoking.; Status:Complete - Retrospective Authorization; Done: 24Dec2022 You need to stop smoking. Though it is not easy, more than half of all adult smokers have quit. We encourage you to write down all the reasons you should quit smoking and set a quit date for yourself. Ask us how we can help. You may also call 6-440-WRCYNOW for free resources and assistance.; Status:Complete - Retrospective Authorization; Done: 24Dec2022 Tobacco Use Screening; Status:Complete; Done: 24Dec2022 SocHx: Current smoker, Sinus tachycardia Start: Metoprolol Tartrate 25 MG Oral Tablet; TAKE 1 TABLET TWICE DAILY Patient Instructions Please bring all medicines, vitamins, and herbal supplements with you when you come to the office. Prescriptions will not be filled unless you are compliant with your follow up appointments or have a follow up appointment scheduled as per instruction of your physician. Refills should be requested at the time of your visit. ok to proceed with bronchoscopy with Dr. Campos and hold asa brilinta 5 days prior resume post op. Follow up in 3 months Chief Complaint HECTOR GASPAR is being seen for pre-operative clearance. 62-year-old gentleman here for preoperative risk assessment and clearance at the request of Dr. Campos for endobronchial biopsy to be performed in mid December. Patient sustained high risk non-ST elevation [place] in October 10, 2022 with primary revascularization of the mid RCA with 2 drug-eluting stents in the distal circumflex with 1 drug-eluting stent. These were large stents his left ventricular function was intact with ejection fraction is 60 to 65%. Patient has persistent exertional dyspnea, large right lower lobe mass with atelectasis, history of tobacco use (current) in addition to COPD, hypertension. Patient is not on beta-maryjane or calcium antagonist however he is on aspirin, atorvastatin, ticagrelor, spironolactone and valsartan. Today's ECG reveals sinus tachycardia with inferior Q wave infarction, and incomplete right bundle branch block but otherwise no ischemic changes with a heart rate of 115 beats a minute He has no angina, arrhythmias, heart failure, repeat hospitalizations or nitrate usage. 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 Based on current guidelines and most recent literature, this is an appropriate indication to withdraw antiplatelet therapy and proceed with urgent endobronchial biopsy for diagnostic purposes, notably his Colby stents that were recently placed have have FDA approval for early withdrawal of antiplatelet therapy given the excellent results of short-term DAPT and recent literature. There is risk of early stent thrombosis however estimated risk is less than 2%, similar to on treatment with DAPT, with early withdrawal. At this point in time patient will be 12 weeks from his original interventional procedures, will allow him to withdraw aspirin and ticagrelor for 5 days, proceed with endobronchial biopsy, and reinitiate DAPT immediately afterwards for the next 9 months to complete his guideline directed medical therapies. He already has a follow-up scheduled with us in the next 8 to 12 weeks. We have counseled him on smoking cessation today for 3 to 5 minutes. Surgical History Problems History of Appendectomy History of Cardiac catheterization Current Meds Medication NameInstruction Advair HFA 115-21 MCG/ACT Inhalation Aerosol Albuterol Sulfate (2.5 MG/3ML) 0.083% Inhalation Nebulization SolutionUSE 1 UNIT DOSE EVERY 4-6 HOURS NEEDED FOR WHEEZING . Aspirin 81 MG Oral Tablet ChewableTake 1 tablet daily Atorvastatin Calcium 80 MG Oral TabletTAKE 1 TABLET AT BEDTIME. Brilinta 90 MG Oral TabletTAKE 1 TABLET TWICE DAILY. Nitroglycerin 0.4 MG Sublingu (more content not included)... Normal [facility] Tobacco Screening.on 023 Fall risk assessment c) Not medically indicated [facility] 250 DO Work Phone: Tobacco use status CPHS a) Yes M [facility] 250 DO Work Phone: Tobacco Screening. Yes [facility] 250 DO Work Phone: CT chest w ann-marie 11-03-2022 CT chest w con [facility] Main [address] [address] [address] Scan Report Signed Patient: Hector Gaspar SR MR#: [id number] : 1960 Acct:[id number] Age/Sex: 62 / M ADM Date: 11/03/22 Loc: CT Room: Type: [facility] Attending Dr: Adi Campos MD Copies to: Adi Campos MD Ordering Provider: Adi Campos MD Date of Service: 11/03/22 CT/CT chest w con: J98.11 CT CHEST WITH INTRAVENOUS CONTRAST: CLINICAL HISTORY: Follow-up pneumonia. Difficulty breathing COMPARISON: Chest 10/11/2022 TECHNIQUE: Spiral images were obtained through the chest following intravenous administration of IV contrast. This CT exam was performed using one or more following dose reduction techniques: Automated exposure control, adjustment of the mA and/or kV according to patient size, or use of iterative reconstruction technique. FINDINGS: Mediastinum:Thoracic aorta appears normal in caliber. Pulmonary trunk appears nondilated. No pericardial effusion. Multiple prominent to enlarged mediastinal and right hilar nodes, largest measuring 14 mm in short axis involving subcarinal region. The esophagus is grossly unremarkable. Lungs:Complete lobar collapse of the right lower lobe with possible obstructing soft tissue mass. There is hyperexpansion of the remaining lobes of the right lung. Emphysematous changes. No pneumothorax or pleural effusion. Mild lung scarring. Abd:No acute findings. Soft tissues/Bones: Visualized soft tissue surrounding the chest wall demonstrate no acute findings. Osseous structures demonstrate degenerative change. CT/CT chest w con IMPRESSION: Complete lobar collapse of the right lower lobe with questionable obstructing soft tissue mass. There is associated prominent to enlarged mediastinal and right hilar lymph nodes suspicious for developing metastatic disease. Bronchoscopy is suggested for further evaluation. Impression dictated by: Parrish Layton Jr., D.OEhsan11/03/2022 2:03 PM Dictation Location: [place] [address] Transcribed By: [facility] 11/03/22 1403 Dictated By: Parrish Layton Jr, DO 11/03/22 1358 Signed By: 11/03/22 140 [facility] Cardiovasc Arrhythmia Result son 11-02-2022 Cardiovasc Arrhythmia Results Reason For Visit Reason for Visit: Holter Monitor: HECTOR is here for the application of a 48 hour Holter monitor. Ordering Physician: AJNINE CUNHA Diagnosis: CAD SINUS PAUSE [facility] equipment agreement signed. HECTOR understands monitor is to be returned on: 11-03-22 Monitor number [id number] applied. Holter monitor returned and downloaded. Procedure Holter monitor printed and placed on Dr. Gonsalves desk to dictate for Dr. Webber. 1?the rhythm was sinus throughout the recording with an average heart rate of 89 bpm. The minimum heart rate was 55 bpm at 9:59 AM and the maximal heart rate was sinus tachycardia at 6:13 PM 2?few events of AV conduction with 2 :1 and 3:1 conduction which were not symptomatic 3?infrequent mostly isolated PVCs, one event of ventricular couplet was noted the rest of the events were isolated PVCs and were not symptomatic 4?frequent but mostly isolated premature atrial complexes. There was 434 beats in total including 3 events of atrial couplets and 1 event of narrow complex tachycardia for 4 beats at a rate of 176 bpm which was not symptomatic 5?the longest pause was 4.4 seconds at 9:16 AM when the patient had an episode of 3:1 AV conduction and was not symptomatic. Conclusion: 48 Holter monitor that demonstrated normal sinus rhythm mechanism throughout with an average heart rate of 89 bpm. Occasional AV conduction was noted with 2: 1 and 3: 1 episodes noted leading to a pause up to 4.4 seconds all of which were asymptomatic. Isolated PVCs were noted at low volume with frequent mostly isolated premature atrial complexes along with 1 event of 4 beat run of narrow complex tachycardia at a rate of 176 bpm which were not symptomatic Diagnosis/Problems Assessed Coronary artery disease involving oneida coronary artery of oneida heart without angina pectoris (414.01) (I25.10) Sinus pause (426.6) (I45.5) Future Appointments Date/TimeProviderSpecialtySite 01/19/2023 02:30 Alok [place] DOCardiology703 [facility] 2 [place] 250 DO Signatures Electronically signed by : Mallory Fan MA; Nov 02 2022 2:10PM EST (Author) Electronically signed by : Mohsen Gonsalves MD; Nov 08 2022 5:34PM EST (Author) Normal [facility] Basic Metabolic Panelon 04-0 Anion gap [Moles/Vol] 11.6 mmol/L Normal 6.0-15.0 [facility] Comment on above: Order Comment: PT NO T FASTING Performed By: #### C MP, MG, HS TROP, A1C WTH eA, LIPID, CBC #### [facility] [address] Calcium [Mass/Vol] 9.5 mg/dL Normal 8.6-10.3 [facility] Comment on above: Order Comment: PT NO T FASTING Result Comment: PERF ORMED BY: [place] [address] PATHOLOGIST SENIOR SQL DEVELOPER JANETTE DE LA FUENTE M.D. Performed By: #### C MP, MG, HS TROP, A1C WTH eA, LIPID, CBC #### [facility] [address] Chloride [Moles/Vol] 107 mmol/L Normal 98-107 [facility] Comment on above: Order Comment: PT NO T FASTING Performed By: #### C MP, MG, HS TROP, A1C WTH eA, LIPID, CBC #### [facility] [address] CO2 [Moles/Vol] 25.8 mmol/L Normal 21.0-31.0 [facility] Comment on above: Order Comment: PT NO T FASTING Performed By: #### C MP, MG, HS TROP, A1C WTH eA, LIPID, CBC #### [facility] [address] Creatinine [Mass/Vol] 1.16 mg/dL Normal 0.70-1.30 [facility] Comment on above: Order Comment: PT NO T FASTING Performed By: #### C MP, MG, HS TROP, A1C WTH eA, LIPID, CBC #### [facility] [address] [place] [address] [place] GFR/1.73 sq M.predicted MDRD (S/P/Bld) [Vol rate/Area] mL/min/{1.73_m2} Normal [facility] Comment on above: Order Comment: PT NO T FASTING Performed By: #### C MP, MG, HS TROP, A1C WTH eA, LIPID, CBC #### [facility] [address] [place] [address] [place] Glucose [Mass/Vol] 100 mg/dL Normal 70-100 [facility] Comment on above: Order Comment: PT NO T FASTING Result Comment: [facility] Glucose Reference Range is dependent on time and content of last meal. Glucose of more than 200 mg/dL in a nonstressed, ambulatory subject supports the diagnosis of Diabetes Mellitus. ADA recommended reference range Performed By: #### C MP, MG, HS TROP, A1C WTH eA, LIPID, CBC #### [facility] [address] Potassium [Moles/Vol] 4.4 mmol/L Normal 3.5-5.1 [facility] Comment on above: Order Comment: PT NO T FASTING Performed By: #### C MP, MG, HS TROP, A1C WTH eA, LIPID, CBC #### [facility] [address] [place] [address] [place] Sodium [Moles/Vol] 140 mmol/L Normal 136-145 [facility] Comment on above: Order Comment: PT NO T FASTING Performed By: #### C MP, MG, HS TROP, A1C WTH eA, LIPID, CBC #### [facility] [address] [place] [address] [place] Urea nitrogen [Mass/Vol] 27 mg/dL High 7-25 [facility] Comment on above: Order Comment: PT NO T FASTING Performed By: #### C MP, MG, HS TROP, A1C WTH eA, LIPID, CBC #### [facility] [address] [place] [address] [place] Calcium [Mass/volume] in Ser um or PlasmaOrdered By: Janine Cunha on 10-28-2022 Calcium [Mass/Vol] 9.5 mg/dL 8.6-10.3 [facility] Carbon dioxide, total [Moles /volume] in Serum or PlasmaOrdered By: Janine Cunha on 10-28-2022 CO2 [Moles/Vol] 25.8 mmol/L 21.0-31.0 [facility] Chloride [Moles/volume] in S lisa or PlasmaOrdered By: Janine Cunha on 10-28-2022 Chloride [Moles/Vol] 107 mmol/L 98-107 [facility] Creatinine [Mass/volume] in Serum or PlasmaOrdered By: Janine Cunha on 10-28-2022 Creatinine [Mass/Vol] 1.16 mg/dL 0.70-1.30 [facility] Glucose [Mass/volume] in Ser um or PlasmaOrdered By: Janine Cunha on 10-28-2022 Glucose [Mass/Vol] 100 mg/dL 70-100 [facility] Comment on above: ADA recommended refe rence rangeRandom Glucose Reference Range is dependent on time and content of last meal. Glucose of more than 200 mg/dL in a nonstressed, ambulatory subject supports the diagnosis of Diabetes Mellitus. No Panel InformationOrdered By: Janine Cunha on 10-28-2022 Estimated GFR (CKD-EPI) > 60.0 mL/Min [facility] Creatinine Clearanc e (Chem N/A [facility] No Panel Informationon 10-28 > 60.[address] [facility] 600 DO Work Phone: 11.6\S\11.6 Normal 6.0-15.[address] [facility] 600 DO Work Phone: 9.5\S\9.5 Normal 8.6-10.[address] [facility] 600 DO Work Phone: Comment on above: PERFORMED BY:[place] [address] [place], [place] [phone] MEDICAL DIRECTORJANETTE DE LA FUENTE M.D. 25.8\S\25.8 Normal 21.0-31.[address] [facility] 600 DO Work Phone: 107\S\107 Normal 98-[address] [facility] DO Work Phone: 4.4\S\4.4 Normal 3.5-5.[address] [facility] 600 DO Work Phone: 140\S\140 Normal 136-[address] [facility] 600 DO Work Phone: 1.16\S\1.16 Normal 0.70-1.[address] [facility] 600 DO Work Phone: 27\S\27 above high threshold 7-25 [facility] 600 DO Work Phone: 100\S\100 Normal 70-100 [facility] 600 DO Work Phone: Comment on above: Random Glucose Refer ence Range is dependent on time and content of last meal. Glucose of more than 200 mg/dL in a nonstressed, ambulatory subject supports the diagnosis of Diabetes Mellitus. ADA recommended reference range Potassium [Moles/volume] in Serum or PlasmaOrdered By: Janine Cunha on 10-28-2022 Potassium [Moles/Vol] 4.4 mmol/L 3.5-5.1 [facility] Serum or plasma anion gap de terminationOrdered By: Janine Cunha on 10-28-2022 Anion gap [Moles/Vol] 11.6 mmol/L 6.0-15.0 [facility] Sodium [Moles/volume] in Ser um or PlasmaOrdered By: Janine Cunha on 10-28-2022 Sodium [Moles/Vol] 140 mmol/L 136-145 [facility] Urea nitrogen [Mass/volume] in Serum or PlasmaOrdered By: Janine Cunha on 10-28-2022 Urea nitrogen [Mass/Vol] 27 mg/dL 7-25 [facility] Tobacco Screening.on 023 Adult depression screening assessment No [facility] [place] [facility] 250 DO Work Phone: Fall risk assessment a) No falls within the last year [facility] [place] 250 DO Work Phone: Tobacco use status CPHS a) Yes [facility] 250 DO Work Phone: Tobacco Screening. Yes [facility] 250 DO Work Phone: B-Type Natriuretic Peptideon 10-12-2022 Natriuretic peptide B (Bld) [Mass/Vol] 91.0 pg/mL Normal 5-100 [facility] Comment on above: Result Comment: PERF ORMED BY: [place] [address] PATHOLOGIST SENIOR SQL DEVELOPER JANETTE DE LA FUENTE M.D. Performed By: #### C MP, MG, HS TROP, A1C WTH eA, LIPID, CBC #### [facility] [address] [place] [address] Basic Metabolic Panelon 03-2022 Anion gap [Moles/Vol] 12.0 mmol/L Normal 6.0-15.0 [facility] Comment on above: Performed By: #### B MP, MG, BNP #### [address] Calcium [Mass/Vol] 9.0 mg/dL Normal 8.6-10.3 [facility] Comment on above: Performed By: #### B MP, MG, BNP #### [address] Chloride [Moles/Vol] 107 mmol/L Normal 98-107 [facility] Comment on above: Performed By: #### B MP, MG, BNP #### [address] CO2 [Moles/Vol] 25.2 mmol/L Normal 21.0-31.0 [facility] Comment on above: Performed By: #### B MP, MG, BNP #### [facility] [address] [place] [address] Creatinine [Mass/Vol] 1.09 mg/dL Normal 0.70-1.30 [facility] Comment on above: Performed By: #### B MP, MG, BNP #### [address] Creatinine Clr Calc Pharmacy 79.69 Normal [facility] Comment on above: Performed By: #### B MP, MG, BNP #### [place] [address] [place] GFR/1.73 sq M.predicted MDRD (S/P/Bld) [Vol rate/Area] mL/min/{1.73_m2} Normal [facility] Comment on above: Performed By: #### B MP, MG, BNP #### [facility] [address] Glucose [Mass/Vol] 100 mg/dL Normal 74-109 [facility] Comment on above: Result Comment: [facility] Glucose Reference Range is dependent on time and content of last meal. Glucose of more than 200 mg/dL in a nonstressed, ambulatory subject supports the diagnosis of Diabetes Mellitus. ADA recommended reference range Performed By: #### B MP, MG, BNP #### [facility] [address] Potassium [Moles/Vol] 4.2 mmol/L Normal 3.5-5.1 [facility] Comment on above: Performed By: #### B MP, MG, BNP #### [facility] [address] Sodium [Moles/Vol] 140 mmol/L Normal 136-145 [facility] Comment on above: Performed By: #### B MP, MG, BNP #### [facility] [address] Urea nitrogen [Mass/Vol] 23 mg/dL Normal 7-25 [facility] Comment on above: Performed By: #### B MP, MG, BNP #### [facility] [address] [place] [address] [place] Calcium [Mass/volume] in Ser um or PlasmaOrdered By: Rubén Tatum on 10-12-2022 Calcium [Mass/Vol] 9.0 mg/dL 8.6-10.3 [facility] Carbon dioxide, total [Moles /volume] in Serum or PlasmaOrdered By: Rubén Tatum on 10-12-2022 CO2 [Moles/Vol] 25.2 mmol/L 21.0-31.0 [facility] Chloride [Moles/volume] in S lisa or PlasmaOrdered By: Rubén Tatum on 10-12-2022 Chloride [Moles/Vol] 107 mmol/L 98-107 [facility] Creatinine [Mass/volume] in Serum or PlasmaOrdered By: Rubén Tatum on 10-12-2022 Creatinine [Mass/Vol] 1.09 mg/dL 0.70-1.30 [facility] Glucose [Mass/volume] in Ser um or PlasmaOrdered By: Rubén Tatum on 10-12-2022 Glucose [Mass/Vol] 100 mg/dL 74-109 [facility] Comment on above: ADA recommended refe rence rangeRandom Glucose Reference Range is dependent on time and content of last meal. Glucose of more than 200 mg/dL in a nonstressed, ambulatory subject supports the diagnosis of Diabetes Mellitus. Laboratory - Chemistry and C hemistry - challengeOrdered By: Rubén Tatum on 10-12-2022 GFR/1.73 sq M.predicted MDRD (S/P/Bld) [Vol rate/Area] mL/min/{1.73_m2} [facility] Magnesiumon 10-12-2022 Magnesium [Mass/Vol] 2.2 mg/dL Normal 1.9-2.7 [facility] Comment on above: Result Comment: PERF ORMED BY: [place] [address] PATHOLOGIST SENIOR SQL DEVELOPER JANETTE DE LA FUENTE M.D. Performed By: #### B MP, MG, BNP #### [address] Magnesium [Mass/volume] in S lisa or PlasmaOrdered By: Rubén Tatum on 10-12-2022 Magnesium [Mass/Vol] 2.2 mg/dL 1.9-2.7 [facility] Natriuretic peptide B [Mass/ Vol]Ordered By: Rubén Tatum on 10-12-2022 Natriuretic peptide B (Bld) [Mass/Vol] 91.0 pg/mL 5-100 [facility] No Panel InformationOrdered By: Rubén Tatum on 10-12-2022 Pharmacy Creatinine Clearance (Chem 79.69 [facility] Potassium [Moles/volume] in Serum or PlasmaOrdered By: Rubén Tatum on 10-12-2022 Potassium [Moles/Vol] 4.2 mmol/L 3.5-5.1 [facility] Serum or plasma anion gap de terminationOrdered By: Rubén Tatum on 10-12-2022 Anion gap [Moles/Vol] 12.0 mmol/L 6.0-15.0 [facility] Sodium [Moles/volume] in Ser um or PlasmaOrdered By: Rubén Tatum on 10-12-2022 Sodium [Moles/Vol] 140 mmol/L 136-145 [facility] Urea nitrogen [Mass/volume] in Serum or PlasmaOrdered By: Rubén Tatum on 10-12-2022 Urea nitrogen [Mass/Vol] 23 mg/dL 7- [facility] A1C with Estimated Average Nestor santos 10-11-2022 Glucose [Mass/Vol] 120 mg/dL Normal [facility] Comment on above: Result Comment: PERF ORMED BY: [place] [address] PATHOLOGIST SENIOR SQL DEVELOPER JANETTE DE LA FUENTE M.D. Performed By: #### C MP, MG, HS TROP, A1C WTH eA, LIPID, CBC #### [facility] [address] HbA1c (Bld) [Mass fraction] 5.8 % High 4.3-5.6 [facility] Comment on above: Result Comment: Incr eased risk for diabetes: 5.7 - 6.4 diabetes: >6.4 glycemic control for adults with diabetes: <7.0 Performed By: #### C MP, MG, HS TROP, A1C WTH eA, LIPID, CBC #### [facility] [address] [place] [address] [place] Alanine aminotransferase [En zymatic activity/volume] in Serum or PlasmaOrdered By: Rubén Tatum on 10-11-2022 ALT [Catalytic activity/Vol] 18 U/L 7-52 [facility] Albumin [Mass/volume] in Ser um or Plasma by Bromocresol green (BCG) dye binding methoOrdered By: Rubén Tatum on 10-11-2022 Albumin BCG dye [Mass/Vol] 3.9 g/dL 3.5-5.7 [facility] Alkaline phosphatase [Enzyma tic activity/volume] in Serum or PlasmaOrdered By: Rubén Tatum on 10-11-2022 ALP [Catalytic activity/Vol] 46 U/L 34-104 [facility] Aspartate aminotransferase [ Enzymatic activity/volume] in Serum or PlasmaOrdered By: Rubén Tatum on 10-11-2022 AST [Catalytic activity/Vol] 30 U/L 13-39 [facility] B-Type Natriuretic Peptideon 10-11-2022 Natriuretic peptide B (Bld) [Mass/Vol] 157.0 pg/mL High 5-100 [facility] Comment on above: Result Comment: PERF ORMED BY: [facility] [address] [place] [address] PATHOLOGIST SENIOR SQL DEVELOPER JANETTE DE LA FUENTE M.D. Performed By: #### C MP, MG, HS TROP, A1C WTH eA, LIPID, CBC #### [facility] [address] Basophils Auto (Bld) [#/Vol] Ordered By: Galo Dent on 10-11-2022 Basophils (Bld) [#/Vol] 0.0 10*3/uL 0.0-0.2 [facility] Basophils/100 WBC Auto (Bld) Ordered By: Galo Dent on 10-11-2022 Basophils/100 WBC (Bld) 0.5 % . F [facility] Bilirubin.total [Mass/volume ] in Serum or PlasmaOrdered By: Rubén Tatum on 10-11-2022 Bilirubin [Mass/Vol] 0.4 mg/dL 0.3-1.0 [facility] Cholesterol [Mass/volume] in Serum or PlasmaOrdered By: Rubén Tatum on 10-11-2022 Cholesterol [Mass/Vol] 221 mg/dL 140-200 [facility] Comment on above: Chol less than 200 m g/dl low riskChol 201-239 mg/dl borderline riskChol 240 mg/dl and greater high risk Cholesterol in LDL Calc [Mas s/Vol]Ordered By: Rubén Tatum on 10-11-2022 Cholesterol in LDL [Mass/Vol] 149 mg/dL 0-100 [facility] Comment on above: LDL ATP III CLASSIFI CATIONLDL less than 100 mg/dL OptimalLDL 100-129 mg/dL Near or above optimalLDL 130-159 mg/dL Borderline highLDL 160-189 mg/dL HighLDL greater than 189 mg/dL Very high Cholesterol in VLDL Calc [Ma ss/Vol]Ordered By: Rubén Tatum on 10-11-2022 Cholesterol in VLDL [Mass/Vol] 30 mg/dL [facility] Complete Blood Count Auto Di ffon 10-11-2022 Basophils (Bld) [#/Vol] 0.0 10*3/uL Normal 0.0-0.2 [facility] Comment on above: Result Comment: PERF ORMED BY: [place] [address] PATHOLOGIST SENIOR SQL DEVELOPER JANETTE DE LA FUENTE M.D. Performed By: #### C MP, MG, HS TROP, A1C WTH eA, LIPID, CBC #### [facility] [address] Basophils/100 WBC (Bld) 0.5 % Normal . [facility] Comment on above: Performed By: #### C MP, MG, HS TROP, A1C WTH eA, LIPID, CBC #### [facility] [address] [place] [address] [place] Eosinophils (Bld) [#/Vol] 0.2 10*3/uL Normal 0.0-0.45 [facility] Comment on above: Performed By: #### C MP, MG, HS TROP, A1C WTH eA, LIPID, CBC #### [facility] [address] Eosinophils/100 WBC (Bld) 3.7 % Normal . [facility] Comment on above: Performed By: #### C MP, MG, HS TROP, A1C WTH eA, LIPID, CBC #### [facility] [address] Erythrocyte distribution wid th (RBC) [Ratio] 14.9 % High 12.0-14.8 [facility] Comment on above: Performed By: #### C MP, MG, HS TROP, A1C WTH eA, LIPID, CBC #### [facility] [address] Hematocrit (Bld) [Volume fraction] 37.7 % Low 38.8-50.0 [facility] Comment on above: Performed By: #### C MP, MG, HS TROP, A1C WTH eA, LIPID, CBC #### [facility] [address] Hemoglobin (Bld) [Mass/Vol] 12.7 g/dL Low 13.0-17. 0 [facility] Comment on above: Performed By: #### C MP, MG, HS TROP, A1C WTH eA, LIPID, CBC #### [address] Lymphocytes (Bld) [#/Vol] 1.4 10*3/uL Normal 1.00-4.8 [facility] Comment on above: Performed By: #### C MP, MG, HS TROP, A1C WTH eA, LIPID, CBC #### [address] Lymphocytes/100 WBC (Bld) 21.8 % Normal . [facility] Comment on above: Performed By: #### C MP, MG, HS TROP, A1C WTH eA, LIPID, CBC #### [address] MCH (RBC) [Entitic mass] 30.1 pg Normal 27.5-35.2 [facility] Comment on above: Performed By: #### C MP, MG, HS TROP, A1C WTH eA, LIPID, CBC #### [address] MCV (RBC) [Entitic vol] 89.4 fL Normal 83.5-101 [facility] Comment on above: Performed By: #### C MP, MG, HS TROP, A1C WTH eA, LIPID, CBC #### [address] Mean Corpuscular HGB Conc 33.7 g/dL Normal 32.5-35.6 [facility] Comment on above: Performed By: #### C MP, MG, HS TROP, A1C WTH eA, LIPID, CBC #### [facility] [address] [place] [address] [place] Monocytes (Bld) [#/Vol] 0.7 10*3/uL Normal 0.0-0.8 [facility] Comment on above: Performed By: #### C MP, MG, HS TROP, A1C WTH eA, LIPID, CBC #### [facility] [address] [place] [address] [place] Monocytes/100 WBC (Bld) 10.2 % Normal . [facility] Comment on above: Performed By: #### C MP, MG, HS TROP, A1C WTH eA, LIPID, CBC #### [facility] [address] [place] [address] [place] Neutrophils (Bld) [#/Vol] 4.2 10*3/uL Normal 1.8-7.7 [facility] Comment on above: Performed By: #### C MP, MG, HS TROP, A1C WTH eA, LIPID, CBC #### [facility] [address] [place] [address] [place] Neutrophils/100 WBC (Bld) 63.8 % Normal . [facility] Comment on above: Performed By: #### C MP, MG, HS TROP, A1C WTH eA, LIPID, CBC #### [facility] [address] NRBC% 0.1 /100{WBC} Normal 0-0.5 [facility] Comment on above: Performed By: #### C MP, MG, HS TROP, A1C WTH eA, LIPID, CBC #### [facility] [address] [place] [address] [place] Platelet mean volume (Bld) [Entitic vol] 7.3 fL Normal 6.6-10.1 [facility] Comment on above: Performed By: #### C MP, MG, HS TROP, A1C WTH eA, LIPID, CBC #### [facility] [address] [place] [address] [place] Platelets (Bld) [#/Vol] 203 10*3/uL Normal 150-450 [facility] Comment on above: Performed By: #### C MP, MG, HS TROP, A1C WTH eA, LIPID, CBC #### [facility] [address] RBC (Bld) [#/Vol] 4.21 10*6/uL Normal 3.90-5.60 [facility] Comment on above: Performed By: #### C MP, MG, HS TROP, A1C WTH eA, LIPID, CBC #### [facility] [address] WBC (Bld) [#/Vol] 6.6 10*3/uL Normal 4.1-10.5 [facility] Comment on above: Performed By: #### C MP, MG, HS TROP, A1C WTH eA, LIPID, CBC #### [address] Comprehensive Metabolic Pane weston 10-11-2022 Albumin [Mass/Vol] 3.9 g/dL Normal 3.5-5.7 [facility] Comment on above: Order Comment: FASTI NG Y Performed By: #### C MP, MG, HS TROP, A1C WTH eA, LIPID, CBC #### [address] Albumin/Globulin [Mass ratio] 1.6 {ratio} Normal [facility] Comment on above: Order Comment: FASTI NG Y Performed By: #### C MP, MG, HS TROP, A1C WTH eA, LIPID, CBC #### [address] ALP [Catalytic activity/Vol] 46 U/L Normal 34-104 [facility] Comment on above: Order Comment: FASTI NG Y Performed By: #### C MP, MG, HS TROP, A1C WTH eA, LIPID, CBC #### [address] ALT [Catalytic activity/Vol] 18 U/L Normal 7-52 [facility] Comment on above: Order Comment: FASTI NG Y Performed By: #### C MP, MG, HS TROP, A1C WTH eA, LIPID, CBC #### [facility] [address] Anion gap [Moles/Vol] 10.3 mmol/L Normal 6.0-15.0 [facility] Comment on above: Order Comment: FASTI NG Y Performed By: #### C MP, MG, HS TROP, A1C WTH eA, LIPID, CBC #### [facility] [address] AST [Catalytic activity/Vol] 30 U/L Normal 13-39 [facility] Comment on above: Order Comment: FASTI NG Y Performed By: #### C MP, MG, HS TROP, A1C WTH eA, LIPID, CBC #### [address] Bilirubin [Mass/Vol] 0.4 mg/dL Normal 0.3-1.0 [facility] Comment on above: Order Comment: FASTI NG Y Performed By: #### C MP, MG, HS TROP, A1C WTH eA, LIPID, CBC #### [address] Calcium [Mass/Vol] 8.9 mg/dL Normal 8.6-10.3 [facility] Comment on above: Order Comment: FASTI NG Y Performed By: #### C MP, MG, HS TROP, A1C WTH eA, LIPID, CBC #### [facility] [address] [place] [address] Chloride [Moles/Vol] 109 mmol/L High 98-107 [facility] Comment on above: Order Comment: FASTI NG Y Performed By: #### C MP, MG, HS TROP, A1C WTH eA, LIPID, CBC #### [facility] [address] [place] [address] CO2 [Moles/Vol] 23.7 mmol/L Normal 21.0-31.0 [facility] Comment on above: Order Comment: FASTI NG Y Performed By: #### C MP, MG, HS TROP, A1C WTH eA, LIPID, CBC #### [address] [place] [address] [place] Creatinine [Mass/Vol] 1.00 mg/dL Normal 0.70-1.30 [facility] Comment on above: Order Comment: FASTI NG Y Performed By: #### C MP, MG, HS TROP, A1C WTH eA, LIPID, CBC #### [facility] [address] Creatinine Clr Calc Pharmacy 86.86 [facility] Comment on above: Order Comment: FASTI NG Y Performed By: #### C MP, MG, HS TROP, A1C WTH eA, LIPID, CBC #### [facility] [address] GFR/1.73 sq M.predicted MDRD (S/P/Bld) [Vol rate/Area] mL/min/{1.73_m2} Normal [facility] Comment on above: Order Comment: FASTI NG Y Performed By: #### C MP, MG, HS TROP, A1C WTH eA, LIPID, CBC #### [facility] [address] Globulin (S) [Mass/Vol] 2.5 g/dL Normal [facility] Comment on above: Order Comment: FASTI NG Y Performed By: #### C MP, MG, HS TROP, A1C WTH eA, LIPID, CBC #### [facility] [address] Glucose [Mass/Vol] 96 mg/dL Normal 74-109 [facility] Comment on above: Order Comment: FASTI NG Y Result Comment: [place] Glucose Reference Range is dependent on time and content of last meal. Glucose of more than 200 mg/dL in a nonstressed, ambulatory subject supports the diagnosis of Diabetes Mellitus. ADA recommended reference range Performed By: #### C MP, MG, HS TROP, A1C WTH eA, LIPID, CBC #### [facility] [address] Potassium [Moles/Vol] 4.0 mmol/L Normal 3.5-5.1 [facility] Comment on above: Order Comment: FASTI NG Y Performed By: #### C MP, MG, HS TROP, A1C WTH eA, LIPID, CBC #### [facility] [address] Protein [Mass/Vol] 6.4 g/dL Normal 6.4-8.9 [facility] Comment on above: Order Comment: FASTI NG Y Performed By: #### C MP, MG, HS TROP, A1C WTH eA, LIPID, CBC #### [facility] [address] Sodium [Moles/Vol] 139 mmol/L Normal 136-145 [facility] Comment on above: Order Comment: FASTI NG Y Performed By: #### C MP, MG, HS TROP, A1C WTH eA, LIPID, CBC #### [facility] [address] Urea nitrogen [Mass/Vol] 17 mg/dL Normal 7-25 [facility] Comment on above: Order Comment: FASTI NG Y Performed By: #### C MP, MG, HS TROP, A1C WTH eA, LIPID, CBC #### [facility] [address] ECG 12 lead ECGon 10-11-2022 ECG [address] [facility] [place] [address] [place] [address] Electrocardiograph Report Signed Patient: Hector Gaspar SR MR#: [id number] 187 : 1960 Acct:[id number] Age/Sex: 62 / M ADM Date: 10/10/22 Loc: Room: [address] [place] [address] Type: ADM IN Attending Dr: Barbara Rivero MD Ordering Provider: Rubén Tatum MD Date of Service: 10/11/22 ECG/ECG 12 lead ECG: Post Angioplasty Procedure in AM Copies to: Test Reason : Blood Pressure : / mmHG Vent. Rate : 073 BPM Atrial Rate : 073 BPM P-R Int : 164 ms QRS Dur : 082 ms QT Int : 364 ms P-R-T Axes : 022 -25 047 degrees QTc Int : 401 ms Normal sinus rhythm Possible Lateral infarct , age undetermined Inferior-posterior infarct , age undetermined Abnormal ECG No previous ECGs available Confirmed by EDILSON CRUZ DO ([id number]) on 10/11/2022 11:32:52 AM Referred By: Electronically Signed By:EDILSON CRUZ DO Transcribed By: MUS Signed By Edilson Cruz DO 10/11 1133 Normal [facility] Eosinophils Auto (Bld) [#/Vo l]Ordered By: Galo Dent on 10-11-2022 Eosinophils (Bld) [#/Vol] 0.2 10*3/uL 0.0-0.45 [facility] Eosinophils/100 WBC Auto (Bl d)Ordered By: Galo Dent on 10-11-2022 Eosinophils/100 WBC (Bld) 3.7 % . [facility] Erythrocyte distribution wid th Auto (RBC) [Ratio]Ordered By: Galo Dent on 10-11-2022 Erythrocyte distribution wid th (RBC) [Ratio] 14.9 % 12.0-14.8 [facility] Globulin Calc (S) [Mass/Vol] Ordered By: Rubén Tatum on 10-11-2022 Globulin (S) [Mass/Vol] 2.5 g/dL [facility] Glucose mean value [Mass/vol ume] in Blood Estimated from glycated hemoglobinOrdered By: Galo Dent on 10-11-2022 Average glucose Estimated fr om glycated hemoglobin (Bld) [Mass/Vol] 120 mg/dL [facility] Hematocrit Auto (Bld) [Volum e fraction]Ordered By: Galo Dent on 10-11-2022 Hematocrit (Bld) [Volume fraction] 37.7 % 3 8.8-50.0 [facility] Hemoglobin A1c percentageOrd ered By: Galo Dent on 10-11-2022 HbA1c (Bld) [Mass fraction] 5.8 % 4.3-5.6 [facility] Comment on above: Increased risk for d iabetes: 5.7 - 6.4diabetes: >6.4glycemic control for adults with diabetes: <7.0 Hemoglobin [Mass/volume] in BloodOrdered By: Galo Dent on 10-11-2022 Hemoglobin (Bld) [Mass/Vol] 12.7 g/dL 13.0-17. 0 [facility] Laboratory - CoagulationOrde red By: Galo Dent on 10-11-2022 PT Coag (PPP) [Time] 11.3 s 9.0-12.9 [facility] Leukocytes [#/volume] correc kal for nucleated erythrocytes in Blood by Automated counOrdered By: Galo Dent on 10-11-2022 WBC corrected for nucl RBC A uto (Bld) [#/Vol] 6.6 10*3/uL 4.1-10.5 [facility] Lipid Panelon 10-11-2022 Cholesterol [Mass/Vol] 221 mg/dL High 140-200 [facility] Comment on above: Order Comment: TONIA Clinton Result Comment: Chol less than 200 mg/dl low risk Chol 201-239 mg/dl borderline risk Chol 240 mg/dl and greater high risk Performed By: #### C MP, MG, HS TROP, A1C WTH eA, LIPID, CBC #### [facility] [address] [place] [id number] [facility] Cholesterol in HDL [Mass/Vol] 42 mg/dL Normal 29-71 [facility] Comment on above: Order Comment: TONIA Clinton Result Comment: HDL CHOL ATP-III CLASSIFICATION Cardiovascular Risk HDL > or equal to 60 mg/dL LOW HDL < 40 mg/dL HIGH Performed By: #### C MP, MG, HS TROP, A1C WTH eA, LIPID, CBC #### [facility] [address] [place] [id number] [facility] Cholesterol.total/Cholestero l in HDL [Mass ratio] 5.3 {ratio} Normal <5.0 [facility] Comment on above: Order Comment: TONIA Clinton Result Comment: PERF ORMED BY: [facility] [address] [place] [address] PATHOLOGIST SENIOR SQL DEVELOPER JANETTE DE LA FUENTE M.D. Performed By: #### C MP, MG, HS TROP, A1C WTH eA, LIPID, CBC #### [facility] [address] [place] [id number] [facility] LDL Cholesterol,Calculated 149 mg/dL High 0-100 [facility] Comment on above: Order Comment: TONIA Clinton Result Comment: LDL ATP III CLASSIFICATION LDL less than 100 mg/dL Optimal LDL 100-129 mg/dL Near or above optimal LDL 130-159 mg/dL Borderline high LDL 160-189 mg/dL High LDL greater than 189 mg/dL Very high Performed By: #### C MP, MG, HS TROP, A1C WTH eA, LIPID, CBC #### [facility] [address] Triglyceride w/Reflex 152 mg/dL High 0-149 [facility] Comment on above: Order Comment: TONIA Clinton Result Comment: TRIG ATP III CLASSIFICATION TRIG less than 150 mg/dL Normal TRIG 150-199 mg/dL Borderline high TRIG 200-500 mg/dL High TRIG greater than 500 mg/dL Very high Standard traceable to the Center for Disease Conrtrol and Prevention (CDC) test method. Performed By: #### C MP, MG, HS TROP, A1C WTH eA, LIPID, CBC #### [facility] [address] VLDL CHOLESTEROL 30 mg/dL Normal [facility] Comment on above: Order Comment: TONIA Clinton Performed By: #### C MP, MG, HS TROP, A1C WTH eA, LIPID, CBC #### [facility] [address] Lymphocytes Auto (Bld) [#/Vo l]Ordered By: Galo Dent on 10-11-2022 Lymphocytes (Bld) [#/Vol] 1.4 10*3/uL 1.00-4.8 [facility] Lymphocytes/100 WBC Auto (Bl d)Ordered By: Galo Dent on 10-11-2022 Lymphocytes/100 WBC (Bld) 21.8 % . [facility] MCH Auto (RBC) [Entitic mass ]Ordered By: Galo Dent on 10-11-2022 MCH (RBC) [Entitic mass] 30.1 pg 27.5-35.2 [facility] MCHC Auto (RBC) [Mass/Vol]Or dered By: Galo Dent on 03-19-2023 MCHC (RBC) [Mass/Vol] 33.7 g/dL 32.5-35.6 [facility] MCV Auto (RBC) [Entitic vol] Ordered By: Galo Dent on 10-11-2022 MCV (RBC) [Entitic vol] 89.4 fL 83.5-101 F [facility] Magnesiumon 10-11-2022 Magnesium [Mass/Vol] 2.0 mg/dL Normal 1.9-2.7 [facility] Comment on above: Order Comment: TONIA Clinton Performed By: #### C MP, MG, HS TROP, A1C WTH eA, LIPID, CBC #### [facility] [address] Monocytes Auto (Bld) [#/Vol] Ordered By: Galo Dent on 10-11-2022 Monocytes (Bld) [#/Vol] 0.7 10*3/uL 0.0-0.8 [facility] Monocytes/100 WBC Auto (Bld) Ordered By: Galo Dent on 10-11-2022 Monocytes/100 WBC (Bld) 10.2 % . [facility] Neutrophils Auto (Bld) [#/Vo l]Ordered By: Galo Dent on 10-11-2022 Neutrophils (Bld) [#/Vol] 4.2 10*3/uL 1.8-7.7 [facility] Neutrophils/100 WBC Auto (Bl d)Ordered By: Galo Dent on 10-11-2022 Neutrophils/100 WBC (Bld) 63.8 % . [facility] Nucleated erythrocytes [Pres ence] in Blood by Automated countOrdered By: Galo Dent on 10-11-2022 Nucleated RBC Auto Ql (Bld) 0.1 /100{WBC} 0-0.5 [facility] Platelet mean volume Auto (B ld) [Entitic vol]Ordered By: Galo Dent on 10-11-2022 Platelet mean volume (Bld) [Entitic vol] 7.3 fL 6.6-10.1 [facility] Platelet poor plasma interna tional normalized ratio (INR) by coagulation assay (relatOrdered By: Galo Dent on 10-11-2022 INR Coag (PPP) [Relative time] 1.0 {INR} [facility] Comment on above: INR Therapeutic Rang e A) Pre- and Peroperative OAT started two weeks before surgery. NOT HIP SURGERY: 1.5 - 2.5 HIP SURGERY: 2 - 3B) Primary and secondary prevention of venous THROMBOSIS: 2 - 3C) Active venous thrombosis, pulmonary embolismand prevention of recurrent venous thrombosis: 2 - 3D) Prevention of arterial thromboembolismincluding patients with mechanical heart valves: 3 - 4.5 Platelets Auto (Bld) [#/Vol] Ordered By: Galo Dent on 10-11-2022 Platelets (Bld) [#/Vol] 203 10*3/uL 150-450 [facility] Protein [Mass/volume] in Ser um or PlasmaOrdered By: Rubén Tatum on 10-11-2022 Protein [Mass/Vol] 6.4 g/dL 6.4-8.9 [facility] Prothrombin Time INRon 10-11 INR Coag (PPP) [Relative time] 1.0 {INR} Normal [facility] Comment on above: Result Comment: INR Therapeutic Range A) Pre- and Peroperative OAT started two weeks before surgery. NOT HIP SURGERY: 1.5 - 2.5 HIP SURGERY: 2 - 3 B) Primary and secondary prevention of venous THROMBOSIS: 2 - 3 C) Active venous thrombosis, pulmonary embolism and prevention of recurrent venous thrombosis: 2 - 3 D) Prevention of arterial thromboembolism including patients with mechanical heart valves: 3 - 4.5 PERFORMED BY: [place] [address] PATHOLOGIST SENIOR SQL DEVELOPER JANETTE DE LA FUENTE M.D. Performed By: #### C MP, MG, HS TROP, A1C WTH eA, LIPID, CBC #### [facility] [address] [place] [address] PT Coag (PPP) [Time] 11.3 s Normal 9.0-12.9 [facility] Comment on above: Performed By: #### C MP, MG, HS TROP, A1C WTH eA, LIPID, CBC #### [address] RBC Auto (Bld) [#/Vol]Ordere d By: Galo Dent on 10-11-2022 RBC (Bld) [#/Vol] 4.21 10*6/uL 3.90-5.60 [facility] Serum or plasma albumin/glob ulin mass ratioOrdered By: Rubén Tatum on 10-11-2022 Albumin/Globulin [Mass ratio] 1.6 {ratio} [facility] Serum or plasma high density lipoprotein (HDL) cholesterol measurementOrdered By: Rubén Tatum on 10-11-2022 Cholesterol in HDL [Mass/Vol] 42 mg/dL 29-71 [facility] Comment on above: HDL CHOL ATP-III CLA SSIFICATION Cardiovascular RiskHDL > or equal to 60 mg/dL LOWHDL < 40 mg/dL HIGH Serum or plasma total choles terol/high density lipoprotein (HDL) cholesterol mass ratOrdered By: Rubén Tatum on 10-11-2022 Cholesterol.total/Cholestero l in HDL [Mass ratio] 5.3 {ratio} <5.0 [facility] Triglyceride [Mass/volume] i n Serum or PlasmaOrdered By: Rubén Tatum on 10-11-2022 Triglyceride [Mass/Vol] 152 mg/dL 0-149 [facility] Comment on above: TRIG ATP III CLASSIF ICATIONTRIG less than 150 mg/dL NormalTRIG 150-199 mg/dL Borderline highTRIG 200-500 mg/dL High TRIG greater than 500 mg/dL Very highStandard traceable to the Center for Disease Conrtrol and Prevention (CDC) test method. Troponin I High Sensitivityo n 10-11-2022 Troponin I High Sensitivity 3965.8 pg/mL Off scale high 0.0-20.0 [facility] Comment on above: Result Comment: Crit ical Result : Called to and read back by: HECTOR LOCO at: 10/11/2022 06:45:50 by:[id number] PERFORMED BY: [facility] [address] [place] [address] PATHOLOGIST SENIOR SQL DEVELOPER JANETTE DE LA FUENTE M.D. Performed By: #### C MP, MG, HS TROP, A1C WTH eA, LIPID, CBC #### [address] [address] [facility] Troponin I.cardiac [Mass/vol ume] in Serum or Plasma by Detection limit <= 0.01 ng/Ordered By: Rubén Tatum on 10-11-2022 Troponin I.cardiac DL <= 0.0 1 ng/mL [Mass/Vol] 3965.8 pg/mL 0.0-20.0 [facility] Comment on above: Critical Result : Ca lled to and read back by: HECTOR LOCO at: 10/11/2022 06:45:50 by:[id number] WBC Auto (Bld) [#/Vol]Ordere d By: Galo Dent on 10-11-2022 WBC (Bld) [#/Vol] 6.6 10*3/uL 4.1-10.5 [facility] XR chest 2V*on 10-11-2022 XR chest 2V* [facility] [place] [address] [place], [place] [id number] XRay Report Signed Patient: Hector Gaspar SR MR#: [id number] : 1960 Acct:[id number] Age/Sex: 62 / M ADM Date: 10/10/22 Loc: Room: [address] [place] [address] Type: ADM IN Attending Dr: Barbara Rivero MD Copies to: Barbara Rivero MD Ordering Provider: Barbara Rivero MD Date of Service: 10/11/22 XR/XR chest 2V*: hypoxia, copd XR chest 2V* 10/11/2022 11:26 AM SIGNS AND SYMPTOMS: hypoxia, copd , shortness of breath PROTOCOL: Frontal and lateral radiographs of the chest COMPARISON: 07/09/2022 FINDINGS: The trachea is midline. The heart and mediastinal structures are within normal limits. Linear scarring or atelectasis is noted in the right lung base. This is new compared to the prior exam. The bony thorax is intact. There is a dextro convex curvature of the thoracic spine. Degenerative changes are noted in the shoulders. XR/XR chest 2V* IMPRESSION: There is new linear scarring or atelectasis in the right lower chest. No acute cardiopulmonary pathology is noted otherwise. Impression dictated by: Arlin Villafana M.D.10/11/2022 2:29 PM Dictation Location: [place] [address] Transcribed By: [facility] 10/11/221428 Dictated By: Arlin Villafana II, MD 10/11/221427 Signed By: 10/11/22 142 Normal [facility] A1C with Estimated Average G leidan 10-10-2022 Glucose [Mass/Vol] 117 mg/dL Normal [facility] Comment on above: Result Comment: PERF ORMED BY: [place] [address] PATHOLOGIST SENIOR SQL DEVELOPER JANETTE DE LA FUENTE M.D. Performed By: #### C MP, MG, HS TROP, A1C WTH eA, LIPID, CBC #### [facility] [address] [place] [address] HbA1c (Bld) [Mass fraction] 5.7 % High 4.3-5.6 [facility] Comment on above: Result Comment: Incr eased risk for diabetes: 5.7 - 6.4 diabetes: >6.4 glycemic control for adults with diabetes: <7.0 Performed By: #### C MP, MG, HS TROP, A1C WTH eA, LIPID, CBC #### [facility] [address] [place] [address] AMYLASEon 10-10-2022 Amylase [Catalytic activity/Vol] 40 U/L Normal 25- 115 [facility] Comment on above: Performed By: #### A MY, CMP, LIPA #### [facility] [address] [place] [address] [address] Carrington Chandler Activated partial thrombopla stin time (aPTT) in platelet poor plasma by coagulation aOrdered By: Galo Dent on 10-10-2022 aPTT Coag (PPP) [Time] 35.9 s 25.1-36.5 [facility] CARDIAC ARLIN ADMITon 023 CK [Catalytic activity/Vol] 530 U/L Critically high 39- 308 [facility] Comment on above: Performed By: #### A MY, CMP, LIPA #### [facility] [address] [place] [address] [address] Carrington Chandler CK.MB [Mass/Vol] 60.47 ng/mL Critically high <=3.60 [facility] Comment on above: Performed By: #### A MY, CMP, LIPA #### [facility] [address] [place] [address] [address] Carrington Chandler HSTROP 9166.1 pg/mL Critically high 4.0-76.1 [facility] Comment on above: Result Comment: CUT- OFF POINTS HAVE BEEN ESTABLISHED BASED ON THE FOURTH UNIVERSAL DEFINITIONS OF MYOCARDIAL INFARCTION. THE UPPER REFERENCE LIMIT (URL) OF TROPONIN, DEFINED THE 99TH PERCENTILE OF cTnI DISTRIBUTION IN A REFERENCE POPULATION, HAS BEEN CONFIRMED THE DECISION THRESHOLD FOR [place] DIAGNOSIS. Performed By: #### A MY, CMP, LIPA #### [facility] [address] [place] [address] [address] Carrington Chandler SAULO 108 ng/mL Critically high 16-96 [facility] Comment on above: Performed By: #### A MY, CMP, LIPA #### [facility] [address] [address] [address] Carrington Chandler CBC AUTO DIFFon 10-10-2022 BASO # 0.0 103/ul Normal 0.0-0.1 [facility] Comment on above: Performed By: #### B MP #### [facility] [address] [address] [address] Carrington Chandler Basophils/100 WBC (Bld) 0.4 % Normal 0.2-2.0 [facility] Comment on above: Performed By: #### B MP #### [facility] [address] [address] [address] Carrington Chandler EO # 0.3 103/ul Normal 0.0-0.[address] [facility] Comment on above: Performed By: #### B MP #### [facility] [address] [address] [address] Carrington Chandler Eosinophils/100 WBC (Bld) 4.9 % Normal 0.9-7.0 [facility] Comment on above: Performed By: #### B MP #### [facility] [address] [place] [address] Dr. Carrington Chandler Erythrocyte distribution wid th (RBC) [Ratio] 13.8 % Normal 11.0-15.0 [facility] Comment on above: Performed By: #### B MP #### [facility] [address] [place] [address] Dr. Carrington Chandler Hematocrit (Bld) [Volume fraction] 38.1 % Critically low 42.0-54.0 [facility] Comment on above: Performed By: #### B MP #### [facility] [address] [place] [address] Dr. Carrington Chandler Hemoglobin (Bld) [Mass/Vol] 13.1 g/dL Critically low 14.0 -18.0 [facility] Comment on above: Performed By: #### B MP #### [facility] [address] [place] [address] Dr. Carrington Chandler IG # 0.01 10e3/ul Normal 0.00-0.03 [facility] Comment on above: Performed By: #### B MP #### [facility] [address] [place] [address] Dr. Carrington Chandler IG % 0.2 % Normal 0.0-0.5 [facility] ostal Comment on above: Performed By: #### B MP #### [facility] [address] [place] [address] Dr. Carrington Chandler LYMPH # 1.8 103/ul Normal 1.2-3.8 [facility] Comment on above: Performed By: #### B MP #### [facility] [address] [place] [address] Dr. Carrington Chandler Lymphocytes/100 WBC (Bld) 33.5 % Normal 20.5-60.0 [facility] Comment on above: Performed By: #### B MP #### [facility] [address] [place] [address] Dr. Carrington Chandler MANUAL DIFF REQ NO Normal [facility] Comment on above: Performed By: #### B MP #### [facility] [address] [place] [address] Dr. Carrington Chandler MCH (RBC) [Entitic mass] 30.7 pg Normal 25.9-34.0 [facility] Comment on above: Performed By: #### B MP #### [facility] [address] [place] [address] Dr. Carrington Chandler MCHC (RBC) [Mass/Vol] 34.4 g/dL Normal 29.9-35.2 [facility] Comment on above: Performed By: #### B MP #### [facility] [address] [place] [address] Dr. Carrington Chandler MCV (RBC) [Entitic vol] 89.2 fL Normal 80.0-94.0 [facility] Comment on above: Performed By: #### B MP #### [facility] [address] [place] [address] Dr. Carrington Chandler MONO # 0.6 103/ul Normal 0.3-0.8 [facility] Comment on above: Performed By: #### B MP #### [facility] [address] [place] [address] Dr. Carrington Chandler Monocytes/100 WBC (Bld) 11.8 % Normal 1.7-12.0 [facility] Comment on above: Performed By: #### B MP #### [facility] [address] [place] [address] Dr. Carrington Chandler NEUT # 2.6 103/ul Normal 1.4-6.5 [facility] Comment on above: Performed By: #### B MP #### [facility] [address] [place] [address] Dr. Carrington Chandler Neutrophils/100 WBC (Bld) 49.2 % Normal 43.0-75.0 [facility] Comment on above: Performed By: #### B MP #### [facility] [address] [place] [address] Dr. Carrington Chandler Platelet mean volume (Bld) [Entitic vol] 9.2 fL Critically low 9.5-13.5 [facility] pital Comment on above: Performed By: #### B MP #### [facility] [address] [address] [address] Carrington Chandler PLT 213 103/ul Normal 150-450 [facility] Comment on above: Performed By: #### B MP #### [facility] [address] [address] [address] Carrington Chandler RBC 4.27 106/ul Critically low 4.70-6.10 [facility] Comment on above: Performed By: #### B MP #### [facility] [address] [address] [address] Carrington Chandler WBC 5.4 103/ul Normal 4.0-11.0 [facility] Comment on above: Performed By: #### B MP #### [facility] [address] [address] [address] Carrington Chandler Complete Blood Count Auto Di ffon 10-10-2022 Basophils (Bld) [#/Vol] 0.0 10*3/uL Normal 0.0-0.2 [facility] Comment on above: Result Comment: PERF ORMED BY: [place] [address] PATHOLOGIST SENIOR SQL DEVELOPER JANETTE DE LA FUENTE M.D. Performed By: #### C MP, MG, HS TROP, A1C WTH eA, LIPID, CBC #### [facility] [address] Basophils/100 WBC (Bld) 0.6 % Normal . [facility] Comment on above: Performed By: #### C MP, MG, HS TROP, A1C WTH eA, LIPID, CBC #### [facility] [address] [place] [address] [place] Eosinophils (Bld) [#/Vol] 0.2 10*3/uL Normal 0.0-0.45 [facility] Comment on above: Performed By: #### C MP, MG, HS TROP, A1C WTH eA, LIPID, CBC #### [facility] [address] Eosinophils/100 WBC (Bld) 4.4 % Normal . [facility] Comment on above: Performed By: #### C MP, MG, HS TROP, A1C WTH eA, LIPID, CBC #### [facility] [address] Erythrocyte distribution wid th (RBC) [Ratio] 14.6 % Normal 12.0-14.8 [facility] Comment on above: Performed By: #### C MP, MG, HS TROP, A1C WTH eA, LIPID, CBC #### [facility] [address] Hematocrit (Bld) [Volume fraction] 36.7 % Low 38.8-50.0 [facility] Comment on above: Performed By: #### C MP, MG, HS TROP, A1C WTH eA, LIPID, CBC #### [address] Hemoglobin (Bld) [Mass/Vol] 12.5 g/dL Low 13.0-17. 0 [facility] Comment on above: Performed By: #### C MP, MG, HS TROP, A1C WTH eA, LIPID, CBC #### [address] Lymphocytes (Bld) [#/Vol] 1.4 10*3/uL Normal 1.00-4.8 [facility] Comment on above: Performed By: #### C MP, MG, HS TROP, A1C WTH eA, LIPID, CBC #### [place] [address] [place] Lymphocytes/100 WBC (Bld) 27.5 % Normal . [facility] Comment on above: Performed By: #### C MP, MG, HS TROP, A1C WTH eA, LIPID, CBC #### [address] MCH (RBC) [Entitic mass] 30.3 pg Normal 27.5-35.2 [facility] Comment on above: Performed By: #### C MP, MG, HS TROP, A1C WTH eA, LIPID, CBC #### [facility] [address] MCV (RBC) [Entitic vol] 88.8 fL Normal 83.5-101 [facility] Comment on above: Performed By: #### C MP, MG, HS TROP, A1C WTH eA, LIPID, CBC #### [facility] [address] Mean Corpuscular HGB Conc 34.1 g/dL Normal 32.5-35.6 [facility] Comment on above: Performed By: #### C MP, MG, HS TROP, A1C WTH eA, LIPID, CBC #### [facility] [address] Monocytes (Bld) [#/Vol] 0.6 10*3/uL Normal 0.0-0.8 [facility] Comment on above: Performed By: #### C MP, MG, HS TROP, A1C WTH eA, LIPID, CBC #### [address] Monocytes/100 WBC (Bld) 11.4 % Normal . [facility] Comment on above: Performed By: #### C MP, MG, HS TROP, A1C WTH eA, LIPID, CBC #### [address] Neutrophils (Bld) [#/Vol] 2.9 10*3/uL Normal 1.8-7.7 [facility] Comment on above: Performed By: #### C MP, MG, HS TROP, A1C WTH eA, LIPID, CBC #### [facility] [address] Neutrophils/100 WBC (Bld) 56.1 % Normal . [facility] Comment on above: Performed By: #### C MP, MG, HS TROP, A1C WTH eA, LIPID, CBC #### [facility] [address] NRBC% 0.1 /100{WBC} Normal 0-0.5 [facility] Comment on above: Performed By: #### C MP, MG, HS TROP, A1C WTH eA, LIPID, CBC #### [address] Platelet mean volume (Bld) [Entitic vol] 7.2 fL Normal 6.6-10.1 [facility] Comment on above: Performed By: #### C MP, MG, HS TROP, A1C WTH eA, LIPID, CBC #### [address] Platelets (Bld) [#/Vol] 199 10*3/uL Normal 150-450 [facility] Comment on above: Performed By: #### C MP, MG, HS TROP, A1C WTH eA, LIPID, CBC #### [address] RBC (Bld) [#/Vol] 4.13 10*6/uL Normal 3.90-5.60 [facility] Comment on above: Performed By: #### C MP, MG, HS TROP, A1C WTH eA, LIPID, CBC #### [address] WBC (Bld) [#/Vol] 5.1 10*3/uL Normal 4.1-10.5 [facility] Comment on above: Performed By: #### C MP, MG, HS TROP, A1C WTH eA, LIPID, CBC #### [address] Basophils (Bld) [#/Vol] 0.0 10*3/uL Normal 0.0-0.2 [facility] Comment on above: Result Comment: PERF ORMED BY: [place] [address] PATHOLOGIST SENIOR SQL DEVELOPER JANETTE DE LA FUENTE M.D. Performed By: #### P T, CBC #### [address] Basophils/100 WBC (Bld) 0.6 % Normal . [facility] Comment on above: Performed By: #### P T, CBC #### [facility] [address] Eosinophils (Bld) [#/Vol] 0.2 10*3/uL Normal 0.0-0.45 [facility] Comment on above: Performed By: #### P T, CBC #### [facility] [address] [place] [address] [place] Eosinophils/100 WBC (Bld) 4.6 % Normal . [facility] Comment on above: Performed By: #### P T, CBC #### [address] Erythrocyte distribution wid th (RBC) [Ratio] 14.9 % High 12.0-14.8 [facility] Comment on above: Performed By: #### P T, CBC #### [address] Hematocrit (Bld) [Volume fraction] 36.2 % Low 38.8-50.0 [facility] Comment on above: Performed By: #### P T, CBC #### [address] Hemoglobin (Bld) [Mass/Vol] 12.4 g/dL Low 13.0-17. 0 [facility] Comment on above: Performed By: #### P T, CBC #### [address] Lymphocytes (Bld) [#/Vol] 1.4 10*3/uL Normal 1.00-4.8 [facility] Comment on above: Performed By: #### P T, CBC #### [place] [address] [place] Lymphocytes/100 WBC (Bld) 28.1 % Normal . [facility] Comment on above: Performed By: #### P T, CBC #### [place] [address] [place] MCH (RBC) [Entitic mass] 30.3 pg Normal 27.5-35.2 [facility] Comment on above: Performed By: #### P T, CBC #### [facility] [address] MCV (RBC) [Entitic vol] 88.5 fL Normal 83.5-101 [facility] Comment on above: Performed By: #### P T, CBC #### [facility] [address] Mean Corpuscular HGB Conc 34.2 g/dL Normal 32.5-35.6 [facility] Comment on above: Performed By: #### P T, CBC #### [facility] [address] Monocytes (Bld) [#/Vol] 0.6 10*3/uL Normal 0.0-0.8 [facility] Comment on above: Performed By: #### P T, CBC #### [address] Monocytes/100 WBC (Bld) 11.6 % Normal . [facility] Comment on above: Performed By: #### P T, CBC #### [facility] [address] Neutrophils (Bld) [#/Vol] 2.8 10*3/uL Normal 1.8-7.7 [facility] Comment on above: Performed By: #### P T, CBC #### [address] Neutrophils/100 WBC (Bld) 55.1 % Normal . [facility] Comment on above: Performed By: #### P T, CBC #### [facility] [address] [place] [address] [place] NRBC% 0.1 /100{WBC} Normal 0-0.5 [facility] Comment on above: Performed By: #### P T, CBC #### [address] Platelet mean volume (Bld) [Entitic vol] 7.5 fL Normal 6.6-10.1 [facility] Comment on above: Performed By: #### P T, CBC #### [facility] [address] [place] [address] Platelets (Bld) [#/Vol] 201 10*3/uL Normal 150-450 [facility] Comment on above: Performed By: #### P T, CBC #### [address] RBC (Bld) [#/Vol] 4.09 10*6/uL Normal 3.90-5.60 [facility] Comment on above: Performed By: #### P T, CBC #### [address] WBC (Bld) [#/Vol] 5.1 10*3/uL Normal 4.1-10.5 [facility] Comment on above: Performed By: #### P T, CBC #### [address] Comprehensive Metabolic Pane weston 10-10-2022 Albumin [Mass/Vol] 4.1 g/dL Normal 3.5-5.7 [facility] Comment on above: Performed By: #### C MP, MG, HS TROP, A1C WTH eA, LIPID, CBC #### [address] Albumin/Globulin [Mass ratio] 1.6 {ratio} Normal [facility] Comment on above: Performed By: #### C MP, MG, HS TROP, A1C WTH eA, LIPID, CBC #### [address] ALP [Catalytic activity/Vol] 47 U/L Normal 34-104 [facility] Comment on above: Performed By: #### C MP, MG, HS TROP, A1C WTH eA, LIPID, CBC #### [address] ALT [Catalytic activity/Vol] 20 U/L Normal 7-52 [facility] Comment on above: Performed By: #### C MP, MG, HS TROP, A1C WTH eA, LIPID, CBC #### [address] [address] [place] Anion gap [Moles/Vol] 9.5 mmol/L Normal 6.0-15.0 [facility] Comment on above: Performed By: #### C MP, MG, HS TROP, A1C WTH eA, LIPID, CBC #### [facility] [address] AST [Catalytic activity/Vol] 48 U/L High 13-39 [facility] Comment on above: Performed By: #### C MP, MG, HS TROP, A1C WTH eA, LIPID, CBC #### [facility] [address] Bilirubin [Mass/Vol] 0.4 mg/dL Normal 0.3-1.0 [facility] Comment on above: Performed By: #### C MP, MG, HS TROP, A1C WTH eA, LIPID, CBC #### [facility] [address] Calcium [Mass/Vol] 9.1 mg/dL Normal 8.6-10.3 [facility] Comment on above: Performed By: #### C MP, MG, HS TROP, A1C WTH eA, LIPID, CBC #### [facility] [address] Chloride [Moles/Vol] 108 mmol/L High 98-107 [facility] Comment on above: Performed By: #### C MP, MG, HS TROP, A1C WTH eA, LIPID, CBC #### [facility] [address] [place] [address] CO2 [Moles/Vol] 25.6 mmol/L Normal 21.0-31.0 [facility] Comment on above: Performed By: #### C MP, MG, HS TROP, A1C WTH eA, LIPID, CBC #### [facility] [address] Creatinine [Mass/Vol] 1.04 mg/dL Normal 0.70-1.30 [facility] Comment on above: Performed By: #### C MP, MG, HS TROP, A1C WTH eA, LIPID, CBC #### [facility] [address] Creatinine Clr Calc Pharmacy 83.69 [facility] Comment on above: Performed By: #### C MP, MG, HS TROP, A1C WTH eA, LIPID, CBC #### [facility] [address] GFR/1.73 sq M.predicted MDRD (S/P/Bld) [Vol rate/Area] mL/min/{1.73_m2} Normal [facility] Comment on above: Performed By: #### C MP, MG, HS TROP, A1C WTH eA, LIPID, CBC #### [facility] [address] Globulin (S) [Mass/Vol] 2.6 g/dL Normal [facility] Comment on above: Performed By: #### C MP, MG, HS TROP, A1C WTH eA, LIPID, CBC #### [facility] [address] Glucose [Mass/Vol] 102 mg/dL Normal 74-109 [facility] Comment on above: Result Comment: [facility] Glucose Reference Range is dependent on time and content of last meal. Glucose of more than 200 mg/dL in a nonstressed, ambulatory subject supports the diagnosis of Diabetes Mellitus. ADA recommended reference range Performed By: #### C MP, MG, HS TROP, A1C WTH eA, LIPID, CBC #### [facility] [address] Potassium [Moles/Vol] 4.1 mmol/L Normal 3.5-5.1 [facility] Comment on above: Performed By: #### C MP, MG, HS TROP, A1C WTH eA, LIPID, CBC #### [facility] [address] Protein [Mass/Vol] 6.7 g/dL Normal 6.4-8.9 [facility] Comment on above: Performed By: #### C MP, MG, HS TROP, A1C WTH eA, LIPID, CBC #### [facility] [address] Sodium [Moles/Vol] 139 mmol/L Normal 136-145 [facility] Comment on above: Performed By: #### C MP, MG, HS TROP, A1C WTH eA, LIPID, CBC #### [facility] [address] Urea nitrogen [Mass/Vol] 18 mg/dL Normal 7-25 [facility] Comment on above: Performed By: #### C MP, MG, HS TROP, A1C WTH eA, LIPID, CBC #### [facility] [address] ECG 12 lead ECGon 10-10-2022 [address] [facility] [place] [address] Electrocardiograph Report Signed Patient: Hector Gaspar SR MR#: [id number] 187 : 1960 Acct:[id number] Age/Sex: 62 / M ADM Date: 10/10/22 Loc: Room: [address] [place] [address] Type: ADM IN Attending Dr: Barbara Rivero MD Ordering Provider: Rubén Tatum MD Date of Service: 10/10/22 ECG/ECG 12 lead ECG: Post Angioplasty Procedure Copies to: Test Reason : Blood Pressure : / mmHG Vent. Rate : 064 BPM Atrial Rate : 064 BPM P-R Int : 162 ms QRS Dur : 098 ms QT Int : 400 ms P-R-T Axes : 018 046 055 degrees QTc Int : 412 ms Sinus rhythm with premature atrial complexes Possible Lateral infarct (cited on or before 10-OCT-2022) Cannot rule out Inferior infarct (cited on or before 10-OCT-2022) Abnormal ECG When compared with ECG of 10-OCT-2022 12:49, (Unconfirmed) No significant change was found Confirmed by EDILSON CRUZ DO ([id number]) on 10/11/2022 11:32:43 AM Referred By: [facility] Electronically Signed By:EDILSON CRUZ DO Transcribed By: MUS Signed By Edilson Cruz DO 10/11 1132 [facility] ECG [address] [facility] [place] [address] Electrocardiograph Report Signed Patient: Hector Gaspar SR MR#: [id number] 187 : 1960 Acct:[id number] Age/Sex: 62 / M ADM Date: 10/10/22 Loc: Room: [address] [place] [address] Type: ADM IN Attending Dr: Barbara Rivero MD Ordering Provider: Galo Dent MD Date of Service: 10/10/22 ECG/ECG 12 lead ECG: NSTMI Copies to: Test Reason : Blood Pressure : / mmHG Vent. Rate : 070 BPM Atrial Rate : 070 BPM P-R Int : 148 ms QRS Dur : 094 ms QT Int : 386 ms P-R-T Axes : 003 007 065 degrees QTc Int : 416 ms Sinus rhythm with premature supraventricular complexes Possible Lateral infarct , age undetermined Inferior infarct , age undetermined Abnormal ECG No previous ECGs available Confirmed by EDILSON CRUZ DO ([id number]) on 10/10/2022 12:02:55 PM Referred By: Electronically Signed By:EDILSON CRUZ DO Transcribed By: MUS Signed By Edilson Cruz DO 10/10 1203 Normal [facility] ECH echo transthoracicon ECH echo transthoracic [facility] [address] Echocardiogram Signed Patient: Hector Gaspar SR MR#: [id number] 187 : 1960 Acct:[id number] Age/Sex: 62 / M ADM Date: 10/10/22 Loc: 4 Room: [address] [place] [address] Type: ADM IN Attending Dr: Barbara Rivero MD Ordering Provider: Galo Dent MD Date of Service: 10/10/22 ECH/ECH echo transthoracic: NSTMI Copies to: Mohsen Gonsalves MD, [facility] Galo Dent MD Weight: 224 lb Performed By: CHRISTA Temple BSA: 2.1 m2 BP: 144/84 mmHg HR: 71 Reason For Study: NSTMI History: asthma, COPD, HTN, family history of CAD Interpretation Summary Mild concentric left ventricular hypertrophy. The left ventricular wall motion is normal. Ejection Fraction = 60-65%. A variety of Doppler measurements indicate impaired left ventricular relaxation, which is associated with grade I/IV or mild diastolic dysfunction. There is no prior echocardiogram noted for this patient. Procedure/Quality: A two-dimensional transthoracic echocardiogram with color flow and Doppler was performed. The study was technically good in quality. There is no prior echocardiogram noted for this patient. Left Ventricle: Mild concentric left ventricular hypertrophy. Left ventricular systolic function is normal. Ejection Fraction = 60-65%. A variety of Doppler measurements indicate impaired left ventricular relaxation, which is associated with grade I/IV or mild diastolic dysfunction. The left ventricular wall motion is normal. Left Atrium: The left atrium appears normal in size. The atrial septum appears normal. Right Atrium: The right atrium appears normal in size. Right Ventricle: The right ventricular size, thickness and function are normal. Aortic Valve: The aortic valve is trileaflet. Mitral Valve: The mitral valve is normal. There is trace mitral regurgitation. Tricuspid Valve: The tricuspid valve is normal. There is trace tricuspid regurgitation. Pulmonic Valve: The pulmonic valve is not well seen, but is grossly normal. Arteries: The aortic root is normal size. Pericardium/Pleura: No pericardial effusion seen. There is no pleural effusion. IVC/Hepatic Viens: The IVC is normal in size with an inspiratory collapse of greater then 50%, suggesting normal right atrial pressure. Miscellaneous: No thrombus, vegetation or mass is seen. Measurements with Normals IVSd: 1.5 cm (0.7-1.1 cm)LVIDd: 4.4 cm (3.7-5.4 cm) LVPWd: 1.6 cm (0.7-1.1 cm)LVIDs: 3.3 cm (2.3-3.6 cm) LA dimension: 3.5 cm (2.3-4.0 cm)Ao root diam: 3.4 cm(2.0-3.6 cm) asc Aorta Diam: 3.9 cm(2.1-3.4cm) Doppler with Normals RVSP(TR): 31.0 mmHg (18-35mmHg) MV E max paul: 57.0 cm/sec(0.8-1.3m/s) MV A max paul: 92.5 cm/sec(0.0-0.0m/s) MV E/A: 0.62 (<1.5) MMode/2D Measurements Calculations RVDd: 3.4 cm FS: 25.3 % Ao root area: LVOT diam: 2.0 cm TAPSE: 3.1 cm EDV(Teich): 9.3 cm2 LVOT area: 3.2 cm2 RV S Paul: 89.0 ml 12.6 cm/sec ESV(Teich): 44.4 ml EF(Teich): 50.2 % __ LVLd ap4: 8.0 cm SV(MOD-sp4): LAV(MOD-sp4): LA A2 area: 19.7 cm2 EDV(MOD-sp4): 41.0 ml 35.4 ml 63.6 ml LAV(MOD-sp2): LA A4 area: 13.9 cm2 LVLs ap4: 7.0 cm 54.7 ml LA length (vol): ESV(MOD-sp4): 4.2 cm 22.6 ml LA vol: 54.9 ml EF(MOD-sp4): 64.5 % LA vol index: 25.9 ml/m2 Doppler Measurements Calculations MV dec time: E/E' lat: 5.7 MV dec slope: Ao V2 max: 0.29 sec E/E' med: 10.7 160.5 cm/sec 198.0 cm/sec2 Ao max P.3 mmHg Ao mean P.8 mmHg Ao V2 mean: 109.3 cm/sec Ao V2 VTI: 36.5 cm __ TV max PG: TR max paul: 26.0 mmHg 255.2 cm/sec TR max P.0 mmHg RAP systole: 5.0 mmHg Transcribed By: SCV Performed At: 10/10/2214 Signed By: Mohsen Gonsalves MD, FACC 10/10/22 1406 Normal [facility] LIPASEon 10-10-2022 Lipase [Catalytic activity/Vol] 212.0 U/L Normal 73.0 -393.0 [facility] Comment on above: Performed By: #### A MY, CMP, LIPA #### [facility] [address] [address] [address] Carrington Chandler Lipid Panelon 10-10-2022 Cholesterol [Mass/Vol] 235 mg/dL High 140-200 [facility] Comment on above: Result Comment: Chol less than 200 mg/dl low risk Chol 201-239 mg/dl borderline risk Chol 240 mg/dl and greater high risk Performed By: #### C MP, MG, HS TROP, A1C WTH eA, LIPID, CBC #### [facility] [address] Cholesterol in HDL [Mass/Vol] 48 mg/dL Normal 29-71 [facility] Comment on above: Result Comment: HDL CHOL ATP-III CLASSIFICATION Cardiovascular Risk HDL > or equal to 60 mg/dL LOW HDL < 40 mg/dL HIGH Performed By: #### C MP, MG, HS TROP, A1C WTH eA, LIPID, CBC #### [facility] [address] Cholesterol.total/Cholestero l in HDL [Mass ratio] 4.9 {ratio} Normal <5.0 [facility] Comment on above: Result Comment: PERF ORMED BY: [facility] [address] [place] [address] PATHOLOGIST SENIOR SQL DEVELOPER JANETTE DE LA FUENTE M.D. Performed By: #### C MP, MG, HS TROP, A1C WTH eA, LIPID, CBC #### [facility] [address] [place] [id number] [place] LDL Cholesterol,Calculated 164 mg/dL High 0-100 [facility] Comment on above: Result Comment: LDL ATP III CLASSIFICATION LDL less than 100 mg/dL Optimal LDL 100-129 mg/dL Near or above optimal LDL 130-159 mg/dL Borderline high LDL 160-189 mg/dL High LDL greater than 189 mg/dL Very high Performed By: #### C MP, MG, HS TROP, A1C WTH eA, LIPID, CBC #### [facility] [address] Triglyceride w/Reflex 116 mg/dL Normal 0-149 [facility] Comment on above: Result Comment: TRIG ATP III CLASSIFICATION TRIG less than 150 mg/dL Normal TRIG 150-199 mg/dL Borderline high TRIG 200-500 mg/dL High TRIG greater than 500 mg/dL Very high Standard traceable to the Center for Disease Conrtrol and Prevention (CDC) test method. Performed By: #### C MP, MG, HS TROP, A1C WTH eA, LIPID, CBC #### [facility] [address] VLDL CHOLESTEROL 23 mg/dL Normal [facility] Comment on above: Performed By: #### C MP, MG, HS TROP, A1C WTH eA, LIPID, CBC #### [facility] [address] Magnesiumon 10-10-2022 Magnesium [Mass/Vol] 2.0 mg/dL Normal 1.9-2.7 [facility] Comment on above: Performed By: #### C MP, MG, HS TROP, A1C WTH eA, LIPID, CBC #### [facility] [address] PROF 14(COMP METB)on 023 Albumin [Mass/Vol] 3.9 g/dL Normal 3.4-5.0 [facility] Comment on above: Performed By: #### A MY, CMP, LIPA #### [facility] [address] [address] [address] Carrington Chandler Albumin/Globulin [Mass ratio] 1.2 {ratio} Normal [facility] Comment on above: Performed By: #### A MY, CMP, LIPA #### [facility] [address] [address] [address] Carrington Chandler ALP [Catalytic activity/Vol] 67 U/L Normal 46-116 [facility] Comment on above: Performed By: #### A MY, CMP, LIPA #### [facility] [address] [address] [address] Carrington Chandler ALT [Catalytic activity/Vol] 30 U/L Normal 16-63 [facility] Comment on above: Performed By: #### A MY, CMP, LIPA #### [facility] [address] [address] [address] Carrington Chandler Anion gap [Moles/Vol] 12.8 mmol/L Normal [facility] Comment on above: Performed By: #### A MY, CMP, LIPA #### [facility] [address] [address] [address] Carrington Chandler AST [Catalytic activity/Vol] 58 U/L Critically high 15 -37 [facility] Comment on above: Performed By: #### A MY, CMP, LIPA #### [facility] [address] [address] [address] Carrington Chandler Bilirubin [Mass/Vol] 0.3 mg/dL Normal 0.2-1.0 [facility] Comment on above: Performed By: #### A MY, CMP, LIPA #### [facility] [address] [address] [address] Carrington Chandler Calcium [Mass/Vol] 8.9 mg/dL Normal 8.5-10.1 [facility] Comment on above: Performed By: #### A MY, CMP, LIPA #### [facility] [address] [address] [address] Carrington Chandler Chloride [Moles/Vol] 101 mmol/L Normal 98-107 [facility] Comment on above: Performed By: #### A MY, CMP, LIPA #### [facility] [address] [address] [address] Carrington Chandler CO2 [Moles/Vol] 26.0 mmol/L Normal 21.0-32.0 [facility] Comment on above: Performed By: #### A MY, CMP, LIPA #### [facility] [address] [address] [address] Carrington Chandler Creatinine [Mass/Vol] 0.98 mg/dL Normal 0.70-1.30 [facility] Comment on above: Performed By: #### A MY, CMP, LIPA #### [facility] [address] [address] [address] Carrington Chandler EGFR-AF PALAUAN >60 Normal >=60 [facility] Comment on above: Performed By: #### A MY, CMP, LIPA #### [facility] [address] [address] [address] Carrington Chandler EGFR-NON AF PALAUAN >60 Normal >=60 [facility] Comment on above: Performed By: #### A MY, CMP, LIPA #### [facility] [address] [address] [address] Carrington Chandlre Globulin (S) [Mass/Vol] 3.2 g/dL Normal [facility] Comment on above: Performed By: #### A MY, CMP, LIPA #### [facility] [address] [address] [address] Carrington Chandler Glucose [Mass/Vol] 101 mg/dL Normal 74-106 [facility] Comment on above: Performed By: #### A MY, CMP, LIPA #### [facility] [address] [address] [address] Carrington Chandler Potassium [Moles/Vol] 3.8 mmol/L Normal 3.5-5.1 [facility] Comment on above: Performed By: #### A MY, CMP, LIPA #### [facility] [address] [address] [address] Carrington Chandler Protein [Mass/Vol] 7.1 g/dL Normal 6.4-8.2 [facility] Comment on above: Performed By: #### A MY, CMP, LIPA #### [facility] [address] [place] [address] Dr. Carrington Chandler Sodium [Moles/Vol] 136 mmol/L Normal 136-145 [facility] Comment on above: Performed By: #### A MY, CMP, LIPA #### [facility] [address] [address] [address] Carrington Chandler Urea nitrogen [Mass/Vol] 19.0 mg/dL Critically high 7.0-18 .0 [facility] Comment on above: Performed By: #### A MY, CMP, LIPA #### [facility] [address] [address] [address] Carrington Chandler Urea nitrogen/Creatinine [Mass ratio] 19.4 mg/mg Normal [facility] Comment on above: Performed By: #### A MY, CMP, LIPA #### [facility] [address] [address] [address] Carrington Chandler PROTIMEon 10-10-2022 INR Coag (PPP) [Relative time] {INR} Normal [facility] Comment on above: Performed By: #### B MP #### [facility] [address] [address] [address] Carrington Chandler INR GUIDELINES SEE BELOW Normal [facility] Comment on above: Result Comment: LYNDON RED INR: 2.0 - 3.0 CONDITIONS NOT LISTED BELOW 2.5 - 3.5 FOR PROSTHETIC HEART VALVE REPLACEMENT 2.5 - 3.5 RECURRENT THROMBOSIS Performed By: #### B MP #### [facility] [address] [address] [address] Carrington Chandler PT Coag (PPP) [Time] 9.7 s Normal 9.0-11.6 [facility] Comment on above: Performed By: #### B MP #### [facility] [address] [address] [address] Carrington Chandler PTTon 10-10-2022 aPTT Coag (Bld) [Time] 29.5 s Normal 22.3-36.2 [facility] Comment on above: Performed By: #### B MP #### [facility] [address] [address] [address] Carrington Chandler Partial Thromboplastin Timeo n 10-10-2022 aPTT Coag (Bld) [Time] 35.9 s Normal 25.1-36.5 [facility] Comment on above: Result Comment: PERF ORMED BY: [facility] [address] [place] [address] PATHOLOGIST SENIOR SQL DEVELOPER JANETTE DE LA FUENTE M.D. Performed By: #### C MP, MG, HS TROP, A1C WTH eA, LIPID, CBC #### [address] Prothrombin Time INRon 10-10 INR Coag (PPP) [Relative time] 0.9 {INR} Normal [facility] Comment on above: Result Comment: INR Therapeutic Range A) Pre- and Peroperative OAT started two weeks before surgery. NOT HIP SURGERY: 1.5 - 2.5 HIP SURGERY: 2 - 3 B) Primary and secondary prevention of venous THROMBOSIS: 2 - 3 C) Active venous thrombosis, pulmonary embolism and prevention of recurrent venous thrombosis: 2 - 3 D) Prevention of arterial thromboembolism including patients with mechanical heart valves: 3 - 4.5 PERFORMED BY: [place] [address] PATHOLOGIST SENIOR SQL DEVELOPER JANETTE DE LA FUENTE M.D. Performed By: #### P T, CBC #### [address] PT Coag (PPP) [Time] 10.9 s Normal 9.0-12.9 [facility] Comment on above: Performed By: #### P T, CBC #### [address] Troponin I High Sensitivityo n 10-10-2022 Troponin I High Sensitivity 7787.7 pg/mL Off scale high 0.0-20.0 [facility] Comment on above: Order Comment: Comme nt Q 3 hrs Result Comment: Resu lts called at 0817 on 10/10/22 --- 10/10/22 0819 --- Trop HS previously reported as: 7787.7 *H pg/mL PERFORMED BY: [place] [address] PATHOLOGIST SENIOR SQL DEVELOPER JANETTE DE LA FUENTE M.D. Performed By: #### C MP, MG, HS TROP, A1C WTH eA, LIPID, CBC #### [address] XR ABD FLAT UP_PA Jean-Pierre 10-10 XR ABD FLAT UP_PA CH XR ABD FLAT UP_PA C H 10/09/2022 11:06 PM EDT CLINICAL INDICATION: Nausea and vomiting COMPARISON: Chest radiograph 07/09/2022, CT abdomen and pelvis 07/24/2021 TECHNIQUE: Upright and supine AP views of the chest, abdomen and pelvis. FINDINGS: There are no tubes or implants noted. The cardiomediastinal silhouette and pulmonary vasculature are within normal limits. No focal opacity concerning for consolidation. No pneumothorax or pleural effusion. No definite free intraperitoneal air, portal venous gas or pneumatosis intestinalis. Nondilated large bowel loops are seen. Multiple prominent small bowel loops are seen in the right abdomen. No suspicious calcifications. The bones demonstrate degenerative changes. The soft tissues are unremarkable. IMPRESSION: No acute cardiopulmonary abnormality. Multiple prominent small bowel loops are seen in the right abdomen measuring up to 2.[address] for further evaluation as clinically warranted. Electronically authenticated by: XIOMARA SCHNEIDER Date: 2022-10-10 00:33 Normal [facility] XR knee RT 3Von 09-09-2022 XR knee RT 3V [facility] [employer] Other XR knee RT 3V [facility] [place] [employer] Other XR knee RT 3V [address] [place] [address] [employer] Other XR knee RT 3V [address] [employer] Other XR knee RT 3V XRay Report [employer] Other XR knee RT 3V Signed [employer] Other XR knee RT 3V Patient: Hector Gaspar MR#: [id number] [facility] [employer] Other XR knee RT 3V 187 [employer] Other XR knee RT 3V : 1960 Acct:[id number] [employer] Other XR knee RT 3V Age/Sex: 62 / M ADM Date: 09/09/22 [employer] Other XR knee RT 3V Loc: [facility] Room: Type: REG CLI [employer] Other XR knee RT 3V Attending Dr: Wagner Marrufo DO [employer] Other XR knee RT 3V Copies to: Wagner Marrufo, [employer] Other XR knee RT 3V Ordering Provider: Judy Marrufo DO [employer] Other XR knee RT 3V Date of Service: 09/09/22 [employer] Other XR knee RT 3V [id number]) XR/XR knee RT 3V - NOT FOR ER USE: Acute pain of right knee [employer] [facility] [email or web address] Other XR knee RT 3V RIGHT KNEE - 3 views N [employer] Other XR knee RT 3V CLINICAL HISTORY: Ge neralized right knee pain for 2 weeks. [employer] Other XR knee RT 3V COMPARISON: None [employer] Other XR knee RT 3V FINDINGS: [employer] Other XR knee RT 3V Small knee joint eff usion. Mild degenerative changes without acute bony process. Presumed loose [employer] Other XR knee RT 3V body seen anteriorly within the joint space. [employer] Other XR knee RT 3V X R/XR knee RT 3V - NOT FOR ER USE [employer] Other XR knee RT 3V IMPRESSION: [employer] Other XR knee RT 3V MILD DEGENERATIVE CH ANGES WITHOUT ACUTE BONY PROCESS. [employer] Other XR knee RT 3V Impression dictated by: Parrish Layton Jr., D.OEhsan09/09/2022 3:40 PM [employer] Other XR knee RT 3V Dictation Location: RADIO-PC-08 [place] [employer] Other XR knee RT 3V Transcribed By: PWS 09/09/22 1542 [employer] Other XR knee RT 3V Dictated By: Parrish Layton Jr, DO 09/09/22 1533 [facility] [employer] Other XR knee RT 3V Signed By: [employer] Other XR knee RT 3V 09/09/22 3639 [employer] Other XR knee RT 3V - NOT FOR ER U Al 09-09-2022 XR knee RT 3V - NOT FOR ER USE [facility] [place] [address] [place] [address] XRay Report Signed Patient: Hector Gaspar SR MR#: [id number] : 1960 Acct:[id number] Age/Sex: 62 / M ADM Date: 09/09/22 Loc[place] [facility] [place]: Type: [facility] Attending Dr: Wagner Marrufo DO Copies to: Wagner Marrufo DO Ordering Provider: Wagner Marrufo DO Date of Service: 09/09/22 XR/XR knee RT 3V - NOT FOR ER USE: Acute pain of right knee RIGHT KNEE - 3 views CLINICAL HISTORY: Generalized right knee pain for 2 weeks. COMPARISON: None FINDINGS: Small knee joint effusion. Mild degenerative changes without acute bony process. Presumed loose body seen anteriorly within the joint space. XR/XR knee RT 3V - NOT FOR ER USE IMPRESSION: MILD DEGENERATIVE CHANGES WITHOUT ACUTE BONY PROCESS. Impression dictated by: Parrish Layton Jr., D.O.09/09/2022 3:40 PM Dictation Location: RADIO-PC-08 Transcribed By: PWS 09/09/22 1540 Dictated By: Parrish Layton Jr DO 09/09/22 1539 Signed By: 02/15/23 1540 [facility] AUTO DIFFon 09-08-2022 BASO # 0.0 103/ul Normal 0.0-0.[address] [facility] Comment on above: Performed By: #### C BC #### [facility] [address] [place] [address] Dr. Carrington Chandler Basophils/100 WBC (Bld) 0.4 % Normal 0.2-2.0 [facility] Comment on above: Performed By: #### C BC #### [facility] [address] [place] [address] Dr. Carrington Chandler EO # 0.3 103/ul Normal 0.0-0.[address] [facility] Comment on above: Performed By: #### C BC #### [facility] [address] [place] [address] Dr. Carrington Chandler Eosinophils/100 WBC (Bld) 4.9 % Normal 0.9-7.0 [facility] Comment on above: Performed By: #### C BC #### [facility] [address] [place] [address] Dr. Carrington Chandler Erythrocyte distribution wid th (RBC) [Ratio] 14.0 % Normal 11.0-15.0 [facility] Comment on above: Performed By: #### C BC #### [facility] [address] [place] [address] Dr. Carrington Chandler Hematocrit (Bld) [Volume fraction] 36.9 % Critically low 42.0-54.0 [facility] Comment on above: Performed By: #### C BC #### [facility] [address] [place] [address] Dr. Carrington Chandler Hemoglobin (Bld) [Mass/Vol] 12.2 g/dL Critically low 14.0 -18.0 [facility] Comment on above: Performed By: #### C BC #### [facility] [address] [place] [address] Dr. Carrington Chandler IG # 0.01 10e3/ul Normal 0.00-0.03 [facility] Comment on above: Performed By: #### C BC #### [facility] [address] [place] [address] Dr. Carrington Chandler IG % 0.2 % Normal 0.0-0.5 [facility] Comment on above: Performed By: #### C BC #### [facility] [address] [place] [address] Dr. Carrington Chandler LYMPH # 1.7 103/ul Normal 1.2-3.8 [facility] ostal Comment on above: Performed By: #### C BC #### [facility] [address] [place] [address] Dr. Carrington Chandler Lymphocytes/100 WBC (Bld) 30.6 % Normal 20.5-60.0 [facility] Comment on above: Performed By: #### C BC #### [facility] [address] [place] [address] Dr. Carrington Chandler MANUAL DIFF REQ NO Normal [facility] Comment on above: Performed By: #### C BC #### [facility] [address] [place] [address] Dr. Carrington Cahndler MCH (RBC) [Entitic mass] 30.3 pg Normal 25.9-34.0 [facility] Comment on above: Performed By: #### C BC #### [facility] [address] [place] [address] Dr. Carrington Chandler MCHC (RBC) [Mass/Vol] 33.1 g/dL Normal 29.9-35.2 [facility] Comment on above: Performed By: #### C BC #### [facility] [address] [place] [address] Dr. Carrington Chandler MCV (RBC) [Entitic vol] 91.6 fL Normal 80.0-94.0 [facility] Comment on above: Performed By: #### C BC #### [facility] [address] [place] [address] Dr. Carrington Chandler MONO # 0.6 103/ul Normal 0.3-0.8 [facility] Comment on above: Performed By: #### C BC #### [facility] [address] [place] [address] Dr. Carrington Chandler Monocytes/100 WBC (Bld) 9.9 % Normal 1.7-12.0 [facility] Comment on above: Performed By: #### C BC #### [facility] [address] [place] [address] Dr. Carrington Chandler NEUT # 3.0 103/ul Normal 1.4-6.5 [facility] Comment on above: Performed By: #### C BC #### [facility] [address] [place] [address] Dr. Carrington Chandler Neutrophils/100 WBC (Bld) 54.0 % Normal 43.0-75.0 [facility] Comment on above: Performed By: #### C BC #### [facility] [address] [place] [address] Dr. Carrington Chandler Platelet mean volume (Bld) [Entitic vol] 8.9 fL Critically low 9.5-13.5 [facility] pital Comment on above: Performed By: #### C BC #### [facility] [address] [place] [address] Dr. Carrington Chandler PLT 189 103/ul Normal 150-450 [facility] Comment on above: Performed By: #### C BC #### [facility] [address] [place] [address] Dr. Carrington Chandler RBC 4.03 106/ul Critically low 4.70-6.10 [facility] Comment on above: Performed By: #### C BC #### [facility] [address] [place] [address] Dr. Carrington Chandler WBC 5.5 103/ul Normal 4.0-11.0 [facility] Comment on above: Performed By: #### C BC #### [facility] [address] [place] [address] Dr. Carrington Chandler CRPon 09-08-2022 CRP 0.5 mg/dL Normal <=1.0 [facility] Comment on above: Performed By: #### A MY, CMP, LIPA #### [facility] [address] [address] [address] Carrington Chandler PROF CHEM 8 (BAS METB)on Anion gap [Moles/Vol] 12.7 mmol/L Normal [facility] Comment on above: Performed By: #### A MY, CMP, LIPA #### [facility] [address] [place] [address] Dr. Carrington Chandler Calcium [Mass/Vol] 8.6 mg/dL Normal 8.5-10.1 [facility] Comment on above: Performed By: #### A MY, CMP, LIPA #### [facility] [address] [place] [address] Dr. Carrington Chandler Chloride [Moles/Vol] 102 mmol/L Normal 98-107 [facility] Comment on above: Performed By: #### A MY, CMP, LIPA #### [facility] [address] [place] [address] Dr. Carrington Chandler CO2 [Moles/Vol] 27.2 mmol/L Normal 21.0-32.0 [facility] Comment on above: Performed By: #### A MY, CMP, LIPA #### [facility] [address] [place] [address] Dr. Carrington Chandler Creatinine [Mass/Vol] 1.11 mg/dL Normal 0.70-1.30 [facility] Comment on above: Performed By: #### A MY, CMP, LIPA #### [facility] [address] [place] [address] Dr. Carrington Chandler EGFR-AF PALAUAN >60 Normal >=60 [facility] Comment on above: Performed By: #### A MY, CMP, LIPA #### [facility] [address] [place] [address] Dr. Carrington Chandler EGFR-NON AF PALAUAN >60 Normal >=60 [facility] Comment on above: Performed By: #### A MY, CMP, LIPA #### [facility] [address] [place] [address] Dr. Carrington Chandler Glucose [Mass/Vol] 132 mg/dL Critically high 74-106 [facility] Comment on above: Performed By: #### A MY, CMP, LIPA #### [facility] [address] [address] [address] Carrington Chandler Potassium [Moles/Vol] 3.9 mmol/L Normal 3.5-5.1 [facility] Comment on above: Performed By: #### A MY, CMP, LIPA #### [facility] [address] [address] [address] Carrington Chandler Sodium [Moles/Vol] 138 mmol/L Normal 136-145 [facility] Comment on above: Performed By: #### A MY, CMP, LIPA #### [facility] [address] [place] [address] Dr. Carrington Chandler Urea nitrogen [Mass/Vol] 18.0 mg/dL Normal 7.0-18.0 [facility] Comment on above: Performed By: #### A MY, CMP, LIPA #### [facility] [address] [place] [address] Dr. Carrington Chandler Urea nitrogen/Creatinine [Mass ratio] 16.2 mg/mg Normal [facility] Comment on above: Performed By: #### A MY, CMP, LIPA #### [facility] [address] [place] [address] Dr. Carrington Chandler US CARRINGTON DOP LEG RTon 09-08-19 23 US CARRINGTON DOP LEG RT EXAM: US CARRINGTON DOP LEG RT HISTORY: Pain COMPARISON: None. TECHNIQUE: Right lower extremity venous Doppler ultrasound is performed. Multiple grayscale and color Doppler images are submitted for review. FINDINGS: The right common femoral vein as well as the superficial and deep femoral veins as well as the right popliteal vein and greater saphenous vein appear patent with normal compressibility and normal flow and normal augmentation. The right anterior tibial and peroneal veins also appear patent with normal compressibility. A complex cystic area is seen in the popliteal fossa, which measures approximately 6.2 x 1.3 x 4 cm, which may represent a popliteal cyst. IMPRESSION: No evidence for deep vein thrombosis in the right lower extremity. A complex cystic area is seen in the popliteal fossa, which measures approximately 6.2 x 1.3 x 4 cm, which may represent a popliteal cyst. Electronically authenticated by: CYNTHIA VASQUEZ Date: 2022-09-07 22:52 Normal [facility] HEMOGLOBINon 08-10-2022 Hemoglobin (Bld) [Mass/Vol] 13.3 g/dL Critically low 14.0 -18.0 [facility] Comment on above: Performed By: #### B MP #### [facility] [address] [place] [address] Dr. Carrington Chandler CBC W MANUAL DIFFon 07-11-20 22 ATYPICAL LYMPH # 0.65 103/ul Normal [facility] Comment on above: Performed By: #### A MY, CMP, LIPA #### [facility] [address] [place] [address] Dr. Carrington Chandler ATYPICAL LYMPH % 11 % Normal [facility] Comment on above: Performed By: #### A MY, CMP, LIPA #### [facility] [address] [place] [address] Dr. Carrington Chandler BAND # 0.0 103/ul Normal 0.0-0.3 [facility] Comment on above: Performed By: #### A MY, CMP, LIPA #### [facility] [address] [place] [address] Dr. Carrington Chandler BAND % 0 % Normal 0-5 [facility] Comment on above: Performed By: #### A MY, CMP, LIPA #### [facility] [address] [place] [address] Dr. Carrington Chandler BASOM # 0.00 103/ul Normal 0.00-0.10 [facility] Comment on above: Performed By: #### A MY, CMP, LIPA #### [facility] [address] [place] [address] Dr. Carrington Chandler BASOM % 0.0 % Critically low 0.2-2.0 [facility] Comment on above: Performed By: #### A MY, CMP, LIPA #### [facility] [address] [place] [address] Dr. Carrington Chandler BLAST # Normal [facility] Comment on above: Performed By: #### A MY, CMP, LIPA #### [facility] [address] [address] [address] Carrington Chandler BLAST % Normal [facility] Comment on above: Performed By: #### A MY, CMP, LIPA #### [facility] [address] [address] [address] Carrington Chandler CORRECTED WBC Normal 4.0-11.0 [facility] Comment on above: Performed By: #### A MY, CMP, LIPA #### [facility] [address] [address] [address] Carrington Chandler EOS # 0.00 103/ul Normal 0.00-0.70 [facility] Comment on above: Performed By: #### A MY, CMP, LIPA #### [facility] [address] [address] [address] Carrington Chandler EOS% 0.0 % Critically low 0.9-7.0 [facility] Comment on above: Performed By: #### A MY, CMP, LIPA #### [facility] [address] [address] [address] Carrington Chandler HCT 34.7 % Critically low 42.0-54.0 [facility] Comment on above: Performed By: #### A MY, CMP, LIPA #### [facility] [address] [address] [address] Carrington Chandler HGB 11.7 g/dl Critically low 14.0-18.0 [facility] Comment on above: Performed By: #### A MY, CMP, LIPA #### [facility] [address] [address] [address] Carrington Chandler LYMPHM # 0.12 103/ul Critically low 1.20-3.80 [facility] Comment on above: Performed By: #### A MY, CMP, LIPA #### [facility] [address] [address] [address] Carrington Chandler LYMPHM% 2.0 % Critically low 20.5-60.0 [facility] Comment on above: Performed By: #### A MY, CMP, LIPA #### [facility] [address] [place] [address] Dr. Carrington Chandler MCH 29.9 pg Normal 25.9-34.0 [facility] Comment on above: Performed By: #### A MY, CMP, LIPA #### [facility] [address] [place] [address] Dr. Carrington Chandler MCHC 33.7 g/dl Normal 29.9-35.[address] [facility] Comment on above: Performed By: #### A MY, CMP, LIPA #### [facility] [address] [place] [address] Dr. Carrington Chandler MCV 88.7 fL Normal 80.0-94.[address] [facility] Comment on above: Performed By: #### A MY, CMP, LIPA #### [facility] [address] [place] [address] Dr. Carrington Chandler METAMYELOCYTE # Normal [facility] Comment on above: Performed By: #### A MY, CMP, LIPA #### [facility] [address] [place] [address] Dr. Carrington Chandler METAMYELOCYTE % Normal [facility] Comment on above: Performed By: #### A MY, CMP, LIPA #### [facility] [address] [place] [address] Dr. Carrington Chandler MONOM# 0.00 103/ul Critically low 0.30-0.80 [facility] Comment on above: Performed By: #### A MY, CMP, LIPA #### [facility] [address] [place] [address] Dr. Carrington Chandler MONOM% 0.0 % Critically low 1.7-12.0 [facility] Comment on above: Performed By: #### A MY, CMP, LIPA #### [facility] [address] [place] [address] Dr. Carrington Chandler MPV 9.4 fL Critically low 9.5-13.5 [facility] Comment on above: Performed By: #### A MY, CMP, LIPA #### [facility] [address] [address] [address] Carrington Chandler MYELOCYTE # Normal [facility] Comment on above: Performed By: #### A MY, CMP, LIPA #### [facility] [address] [address] [address] Carrington Chandler MYELOCYTE % Normal [facility] Comment on above: Performed By: #### A MY, CMP, LIPA #### [facility] [address] [address] [address] Carrington Chandler NRBC Normal [facility] Comment on above: Performed By: #### A MY, CMP, LIPA #### [facility] [address] [place] [address] Dr. Carrington Chandler PLT 160 103/ul Normal 150-[address] [facility] Comment on above: Performed By: #### A MY, CMP, LIPA #### [facility] [address] [address] [address] Carrington Chandler RBC 3.91 106/ul Critically low 4.70-6.10 [facility] Comment on above: Performed By: #### A MY, CMP, LIPA #### [facility] [address] [place] [address] Dr. Carrington Chandler RDW 12.4 % Normal 11.0-15.0 [facility] Comment on above: Performed By: #### A MY, CMP, LIPA #### [facility] [address] [address] [address] Carrington Chandler SEG # 5.13 103/ul Normal 1.40-6.50 [facility] Comment on above: Performed By: #### A MY, CMP, LIPA #### [facility] [address] [address] [address] Carrington Chandler SEG % 87.0 % Critically high 43.0-75.0 [facility] Comment on above: Performed By: #### A MY, CMP, LIPA #### [facility] [address] [address] [address] Carrington Chandler WBC 5.9 103/ul Normal 4.0-11.0 [facility] Comment on above: Performed By: #### A MY, CMP, LIPA #### [facility] [address] [place] [address] Dr. Carrington Chandler PROF 14(COMP METB)on 022 Albumin [Mass/Vol] 3.0 g/dL Critically low 3.4-5.0 [facility] Comment on above: Performed By: #### C MP #### [facility] [address] [place] [address] Dr. Carrington Chandler Albumin/Globulin [Mass ratio] 0.9 {ratio} Normal [facility] Comment on above: Performed By: #### C MP #### [facility] [address] [place] [address] Dr. Carrington Chandler ALP [Catalytic activity/Vol] 56 U/L Normal 46-116 [facility] Comment on above: Performed By: #### C MP #### [facility] [address] [place] [address] Dr. Carrington Chandler ALT [Catalytic activity/Vol] 21 U/L Normal 16-63 [facility] Comment on above: Performed By: #### C MP #### [facility] [address] [place] [address] Dr. Carrington Chandler Anion gap [Moles/Vol] 12.9 mmol/L Normal [facility] Comment on above: Performed By: #### C MP #### [facility] [address] [place] [address] Dr. Carrington Chandler AST [Catalytic activity/Vol] 15 U/L Normal 15-37 [facility] Comment on above: Performed By: #### C MP #### [facility] [address] [place] [address] Dr. Carrington Chandler Bilirubin [Mass/Vol] 0.2 mg/dL Normal 0.2-1.0 [facility] Comment on above: Performed By: #### C MP #### [facility] [address] [place] [address] Dr. Carrington Chandler Calcium [Mass/Vol] 8.1 mg/dL Critically low 8.5-10.1 [facility] Comment on above: Performed By: #### C MP #### [facility] [address] [place] [address] Dr. Carrington Chandler Chloride [Moles/Vol] 104 mmol/L Normal 98-107 [facility] Comment on above: Performed By: #### C MP #### [facility] [address] [address] [address] Carrington Chandler CO2 [Moles/Vol] 24.6 mmol/L Normal 21.0-32.0 [facility] Comment on above: Performed By: #### C MP #### [facility] [address] [place] [address] Dr. Carrington Chandler Creatinine [Mass/Vol] 0.88 mg/dL Normal 0.70-1.30 [facility] Comment on above: Performed By: #### C MP #### [facility] [address] [place] [address] Dr. Carrington Chandler EGFR-AF PALAUAN >60 Normal >=60 [facility] [place] Comment on above: Performed By: #### C MP #### [facility] [address] [place] [address] Dr. Carrington Chandler EGFR-NON AF PALAUAN >60 Normal >=60 [facility] Comment on above: Performed By: #### C MP #### [facility] [address] [place] [address] Dr. Carrington Chandler Globulin (S) [Mass/Vol] 3.3 g/dL Normal [facility] Comment on above: Performed By: #### C MP #### [facility] [address] [place] [address] Dr. Carrington Chandler Glucose [Mass/Vol] 174 mg/dL Critically high 74-106 [facility] Comment on above: Performed By: #### C MP #### [facility] [address] [place] [address] Dr. Carrington Chandler Potassium [Moles/Vol] 3.5 mmol/L Normal 3.5-5.1 [facility] Comment on above: Performed By: #### C MP #### [facility] [address] [address] [address] Carrington Chandler Protein [Mass/Vol] 6.3 g/dL Critically low 6.4-8.2 [facility] Comment on above: Performed By: #### C MP #### [facility] [address] [address] [address] Carrington Chandler Sodium [Moles/Vol] 138 mmol/L Normal 136-145 [facility] Comment on above: Performed By: #### C MP #### [facility] [address] [place] [address] Dr. Carrington Chandler Urea nitrogen [Mass/Vol] 17.0 mg/dL Normal 7.0-18.0 [facility] Comment on above: Performed By: #### C MP #### [facility] [address] [place] [address] Dr. Carrington Chandler Urea nitrogen/Creatinine [Mass ratio] 19.3 mg/mg Normal [facility] Comment on above: Performed By: #### C MP #### [facility] [address] [place] [address] Dr. Carrington Chandler CBC AUTO DIFFon 07-10-2022 BASO # 0.0 103/ul Normal 0.0-0.1 [facility] Comment on above: Performed By: #### B MP #### [facility] [address] [place] [address] Dr. Carrington Chandler Basophils/100 WBC (Bld) 0.2 % Normal 0.2-2.0 [facility] Comment on above: Performed By: #### B MP #### [facility] [address] [place] [address] Dr. Carrington Chandler EO # 0.1 103/ul Normal 0.0-0.7 [facility] Comment on above: Performed By: #### B MP #### [facility] [address] [place] [address] Dr. Carrington Chandler Eosinophils/100 WBC (Bld) 2.3 % Normal 0.9-7.0 [facility] Comment on above: Performed By: #### B MP #### [facility] [address] [place] [address] Dr. Carrington Chandler Erythrocyte distribution wid th (RBC) [Ratio] 12.5 % Normal 11.0-15.0 [facility] Comment on above: Performed By: #### B MP #### [facility] [address] [place] [address] Dr. Carrington Chandler Hematocrit (Bld) [Volume fraction] 36.8 % Critically low 42.0-54.0 [facility] Comment on above: Performed By: #### B MP #### [facility] [address] [place] [address] Dr. Carrington Chandler Hemoglobin (Bld) [Mass/Vol] 12.3 g/dL Critically low 14.0 -18.0 [facility] Comment on above: Performed By: #### B MP #### [facility] [address] [place] [address] Dr. Carrington Chandler IG # 0.01 10e3/ul Normal 0.00-0.03 [facility] Comment on above: Performed By: #### B MP #### [facility] [address] [place] [address] Dr. Carrington Chandler IG % 0.2 % Normal 0.0-0.5 [facility] Comment on above: Performed By: #### B MP #### [facility] [address] [place] [address] Dr. Carrington Chandler LYMPH # 1.5 103/ul Normal 1.2-3.8 [facility] Comment on above: Performed By: #### B MP #### [facility] [address] [place] [address] Dr. Carrington Chandler Lymphocytes/100 WBC (Bld) 34.7 % Normal 20.5-60.0 [facility] Comment on above: Performed By: #### B MP #### [facility] [address] [place] [address] Dr. Carrington Chandler MANUAL DIFF REQ NO Normal [facility] Comment on above: Performed By: #### B MP #### [facility] [address] [place] [address] Dr. Carrington Chandler MCH (RBC) [Entitic mass] 29.8 pg Normal 25.9-34.0 [facility] Comment on above: Performed By: #### B MP #### [facility] [address] [place] [address] Dr. Carrington Chandler MCHC (RBC) [Mass/Vol] 33.4 g/dL Normal 29.9-35.2 [facility] Comment on above: Performed By: #### B MP #### [facility] [address] [place] [address] Dr. Carrington Chandler MCV (RBC) [Entitic vol] 89.1 fL Normal 80.0-94.0 [facility] Comment on above: Performed By: #### B MP #### [facility] [address] [place] [address] Dr. Carrington Chandler MONO # 0.5 103/ul Normal 0.3-0.[address] [facility] Comment on above: Performed By: #### B MP #### [facility] [address] [place] [address] Dr. Carrington Chandler Monocytes/100 WBC (Bld) 11.0 % Normal 1.7-12.0 [facility] Comment on above: Performed By: #### B MP #### [facility] [address] [place] [address] Dr. Carrington Chandler NEUT # 2.2 103/ul Normal 1.4-6.[address] [facility] Comment on above: Performed By: #### B MP #### [facility] [address] [place] [address] Dr. Carrington Chandler Neutrophils/100 WBC (Bld) 51.6 % Normal 43.0-75.0 [facility] Comment on above: Performed By: #### B MP #### [facility] [address] [address] [address] Carrington Chandler Platelet mean volume (Bld) [Entitic vol] 9.0 fL Critically low 9.5-13.5 [facility] Comment on above: Performed By: #### B MP #### [facility] [address] [address] [address] Carrington Chandler PLT 147 103/ul Critically low 150-450 [facility] Comment on above: Performed By: #### B MP #### [facility] [address] [address] [address] Carrington Chandler RBC 4.13 106/ul Critically low 4.70-6.10 [facility] Comment on above: Performed By: #### B MP #### [facility] [address] [address] [address] Carrington Chandler WBC 4.4 103/ul Normal 4.0-11.0 [facility] Comment on above: Performed By: #### B MP #### [facility] [address] [place] [address] Dr. Carrington Chandler CULTURE SPUTUMon 07-10-2022 CULTURE SPUTUM Culture Observations : NORMAL RESPIRATORY SANDY. Normal [facility] Comment on above: Performed By: #### C MP #### [facility] [address] [place] [address] Dr. Carrington Chandler MAGNESIUMon 07-10-2022 Magnesium [Mass/Vol] 2.0 mg/dL Normal 1.8-2.4 [facility] Comment on above: Performed By: #### C MP #### [facility] [address] [address] [address] Carrington Chandler PROF 14(COMP METB)on 022 Albumin [Mass/Vol] 2.8 g/dL Critically low 3.4-5.0 [facility] Comment on above: Performed By: #### B MP #### [facility] [address] [place] [address] Dr. Carrington Chandler Albumin/Globulin [Mass ratio] 0.8 {ratio} Normal [facility] Comment on above: Performed By: #### B MP #### [facility] [address] [address] [address] Carrington Chandler ALP [Catalytic activity/Vol] 55 U/L Normal 46-116 [facility] Comment on above: Performed By: #### B MP #### [facility] [address] [address] [address] Carrington Chandler ALT [Catalytic activity/Vol] 22 U/L Normal 16-63 [facility] Comment on above: Performed By: #### B MP #### [facility] [address] [address] [address] Carrington Chandler Anion gap [Moles/Vol] 10.3 mmol/L Normal [facility] Comment on above: Performed By: #### B MP #### [facility] [address] [place] [address] Dr. Carrington Chandler AST [Catalytic activity/Vol] 22 U/L Normal 15-37 [facility] Comment on above: Performed By: #### B MP #### [facility] [address] [place] [address] Dr. Carrington Chandler Bilirubin [Mass/Vol] 0.2 mg/dL Normal 0.2-1.0 [facility] Comment on above: Performed By: #### B MP #### [facility] [address] [place] [address] Dr. Carrington Chandler Calcium [Mass/Vol] 8.0 mg/dL Critically low 8.5-10.1 [facility] Comment on above: Performed By: #### B MP #### [facility] [address] [place] [address] Dr. Carrington Chandler Chloride [Moles/Vol] 105 mmol/L Normal 98-107 [facility] Comment on above: Performed By: #### B MP #### [facility] [address] [place] [address] Dr. Carrington Chandler CO2 [Moles/Vol] 28.1 mmol/L Normal 21.0-32.0 [facility] [place] Comment on above: Performed By: #### B MP #### [facility] [address] [address] [address] Carrington Chandler Creatinine [Mass/Vol] 0.89 mg/dL Normal 0.70-1.30 [facility] Comment on above: Performed By: #### B MP #### [facility] [address] [address] [address] Carrington Chandler EGFR-AF PALAUAN >60 Normal >=60 [facility] [place] Comment on above: Performed By: #### B MP #### [facility] [address] [address] [address] Carrington Chandler EGFR-NON AF PALAUAN >60 Normal >=60 [facility] Comment on above: Performed By: #### B MP #### [facility] [address] [address] [address] Carrington Chandler Globulin (S) [Mass/Vol] 3.7 g/dL Normal [facility] Comment on above: Performed By: #### B MP #### [facility] [address] [address] [address] Carrington Chandler Glucose [Mass/Vol] 124 mg/dL Critically high 74-106 [facility] Comment on above: Performed By: #### B MP #### [facility] [address] [place] [address] Dr. Carrington Chandler Potassium [Moles/Vol] 3.4 mmol/L Critically low 3.5-5.1 [facility] Comment on above: Performed By: #### B MP #### [facility] [address] [address] [address] Carrington Chandler Protein [Mass/Vol] 6.5 g/dL Normal 6.4-8.2 [facility] Comment on above: Performed By: #### B MP #### [facility] [address] [place] [address] Dr. Carrington Chandler Sodium [Moles/Vol] 140 mmol/L Normal 136-145 [facility] Comment on above: Performed By: #### B MP #### [facility] [address] [place] [address] Dr. Carrington Chandler Urea nitrogen [Mass/Vol] 15.0 mg/dL Normal 7.0-18.0 [facility] Comment on above: Performed By: #### B MP #### [facility] [address] [place] [address] Dr. Carrington Chandler Urea nitrogen/Creatinine [Mass ratio] 16.9 mg/mg Normal [facility] Comment on above: Performed By: #### B MP #### [facility] [address] [place] [address] Dr. Carrington Chandler CBC AUTO DIFFon 07-09-2022 BASO # 0.0 103/ul Normal 0.0-0.1 [facility] Comment on above: Performed By: #### A MY, CMP, LIPA #### [facility] [address] [place] [address] Dr. Carrington Chandler Basophils/100 WBC (Bld) 0.2 % Normal 0.2-2.0 [facility] Comment on above: Performed By: #### A MY, CMP, LIPA #### [facility] [address] [place] [address] Dr. Carrington Chandler EO # 0.1 103/ul Normal 0.0-0.[address] [facility] Comment on above: Performed By: #### A MY, CMP, LIPA #### [facility] [address] [place] [address] Dr. Carrington Chandler Eosinophils/100 WBC (Bld) 1.9 % Normal 0.9-7.0 [facility] Comment on above: Performed By: #### A MY, CMP, LIPA #### [facility] [address] [place] [address] Dr. Carrington Chandler Erythrocyte distribution wid th (RBC) [Ratio] 12.6 % Normal 11.0-15.0 [facility] Comment on above: Performed By: #### A MY, CMP, LIPA #### [facility] [address] [place] [address] Dr. Carrington Chandler Hematocrit (Bld) [Volume fraction] 38.8 % Critically low 42.0-54.0 [facility] Comment on above: Performed By: #### A MY, CMP, LIPA #### [facility] [address] [address] [address] Carrington Chandler Hemoglobin (Bld) [Mass/Vol] 12.9 g/dL Critically low 14.0 -18.0 [facility] Comment on above: Performed By: #### A MY, CMP, LIPA #### [facility] [address] [place] [address] Dr. Carrington Chandler IG # 0.01 10e3/ul Normal 0.00-0.03 [facility] Comment on above: Performed By: #### A MY, CMP, LIPA #### [facility] [address] [place] [address] Dr. Carrington Chandler IG % 0.2 % Normal 0.0-0.5 [facility] Comment on above: Performed By: #### A MY, CMP, LIPA #### [facility] [address] [place] [address] Dr. Carrington Chandler LYMPH # 1.7 103/ul Normal 1.2-3.8 [facility] Comment on above: Performed By: #### A MY, CMP, LIPA #### [facility] [address] [place] [address] Dr. Carrington Chandler Lymphocytes/100 WBC (Bld) 34.7 % Normal 20.5-60.0 [facility] Comment on above: Performed By: #### A MY, CMP, LIPA #### [facility] [address] [place] [address] Dr. Carrington Chandler MANUAL DIFF REQ NO Normal [facility] Comment on above: Performed By: #### A MY, CMP, LIPA #### [facility] [address] [place] [address] Dr. Carrington Chandler MCH (RBC) [Entitic mass] 29.9 pg Normal 25.9-34.0 [facility] Comment on above: Performed By: #### A MY, CMP, LIPA #### [facility] [address] [place] [address] Dr. Carrington Chandler MCHC (RBC) [Mass/Vol] 33.2 g/dL Normal 29.9-35.2 [facility] Comment on above: Performed By: #### A MY, CMP, LIPA #### [facility] [address] [place] [address] Dr. Carrington Chandler MCV (RBC) [Entitic vol] 90.0 fL Normal 80.0-94.0 [facility] Comment on above: Performed By: #### A MY, CMP, LIPA #### [facility] [address] [place] [address] Dr. Carrington Chandler MONO # 0.5 103/ul Normal 0.3-0.[address] [facility] Comment on above: Performed By: #### A MY, CMP, LIPA #### [facility] [address] [place] [address] Dr. Carrington Chandler Monocytes/100 WBC (Bld) 10.4 % Normal 1.7-12.0 [facility] Comment on above: Performed By: #### A MY, CMP, LIPA #### [facility] [address] [place] [address] Dr. Carrington Chandler NEUT # 2.5 103/ul Normal 1.4-6.[address] [facility] Comment on above: Performed By: #### A MY, CMP, LIPA #### [facility] [address] [place] [address] Dr. Carrington Chandler Neutrophils/100 WBC (Bld) 52.6 % Normal 43.0-75.0 [facility] Comment on above: Performed By: #### A MY, CMP, LIPA #### [facility] [address] [place] [address] Dr. Carrington Chandler Platelet mean volume (Bld) [Entitic vol] 9.0 fL Critically low 9.5-13.5 [facility] Comment on above: Performed By: #### A MY, CMP, LIPA #### [facility] [address] [place] [address] Dr. Carrignton Chandler PLT 155 103/ul Normal 150-450 [facility] Comment on above: Performed By: #### A MY, CMP, LIPA #### [facility] [address] [address] [address] Carrington Chandler RBC 4.31 106/ul Critically low 4.70-6.10 [facility] Comment on above: Performed By: #### A MY, CMP, LIPA #### [facility] [address] [address] [address] Carrington Chandler WBC 4.8 103/ul Normal 4.0-11.0 [facility] Comment on above: Performed By: #### A MY, CMP, LIPA #### [facility] [address] [address] [address] Carrington Chandler Covid-19 PCR ([facility])on 06-25 SARS-CoV-2 (COVID-19) RNA CHARLIE+probe Ql (Unsp spec) Not detected Normal NOT DETECTED [facility] Comment on above: Result Comment: When diagnostic testing is negative, the possibility of a false negative should be considered in the context of a patient's recent exposures and the presence of clinical signs and symptoms consistent with SARS-CoV-2. This test is not yet approved or cleared by the [place] FDA. When there are no FDA-approved or cleared tests available, and other criteria are met, FDA can make tests available under an emergency access mechanism called an Emergency Use Authorization (EUA). The EUA for this test is supported by the [place] of Health and Human Service's declaration that circumstances exist to justify the emergency use of in vitro diagnostics for the detection and/or diagnosis of the virus that causes COVID-19. This EUA will remain in effect for the duration of the COVID-19 declaration justifying emergency of IVDs, unless it is terminated or revoked by the FDA (after which the test may no longer be used). Performed By: #### C MP #### [facility] [address] [place] [address] Dr. Carrington Chandler ER URINE PROFILEon 2 Bilirubin Ql (U) Negative Normal NEGATIVE [facility] Comment on above: Performed By: #### C MP #### [facility] [address] [place] [address] Dr. Carrington Chandler Clarity (U) CLEAR Normal CLEAR [facility] Comment on above: Performed By: #### C MP #### [facility] [address] [place] [address] Dr. Carrington Chandler Color (U) LT. YELLOW Normal YELLOW [facility] Comment on above: Performed By: #### C MP #### [facility] [address] [place] [address] Dr. Carrington Chandler ERUMERLENED A micrscopic examina tion will be performed if indicated. Normal [facility] Comment on above: Performed By: #### C MP #### [facility] [address] [place] [address] Dr. Carrington Chandler Glucose Ql (U) Negative Normal NEGATIVE [facility] Comment on above: Performed By: #### C MP #### [facility] [address] [place] [address] Dr. Carrington Chandler Hemoglobin Ql (U) Negative Normal NEGATIVE [facility] Comment on above: Performed By: #### C MP #### [facility] [address] [place] [address] Dr. Carrington Chandler Ketones Ql (U) Negative Normal NEGATIVE [facility] Comment on above: Performed By: #### C MP #### [facility] [address] [place] [address] Dr. Carrington Chandler LEUKOCYTES Negative Normal NEGATIVE [facility] Comment on above: Performed By: #### C MP #### [facility] [address] [place] [address] Dr. Carrington Chandler Nitrite Ql (U) Negative Normal NEGATIVE [facility] Comment on above: Performed By: #### C MP #### [facility] [address] [place] [address] Dr. Carrington Chandler pH (U) 6.0 [pH] Normal 5-9 [facility] Comment on above: Performed By: #### C MP #### [facility] [address] [place] [address] Dr. Carrington Chandler SPEC GRAVITY 1.010 Normal 1.005-<=1.025 [facility] Comment on above: Performed By: #### C MP #### [facility] [address] [place] [address] Dr. Carrington Chandler UA PROTEIN Negative Normal NEGATIVE/ TRACE [facility] Comment on above: Performed By: #### C MP #### [facility] [address] [place] [address] Dr. Carrington Chandler UR MICRO IND NOT INDICATED Normal [facility] Comment on above: Performed By: #### C MP #### [facility] [address] [place] [address] Dr. Carrington Chandler Urobilinogen Qn (U) 0.2 {Lars'U}/dL Normal 0.2 - 1. 0 [facility] Comment on above: Performed By: #### C MP #### [facility] [address] [place] [address] Dr. Carrington Chandler PROF CHEM 8 (BAS METB)on Anion gap [Moles/Vol] 6.6 mmol/L Normal [facility] Comment on above: Performed By: #### B MP #### [facility] [address] [place] [address] Dr. Carrington Chandler Calcium [Mass/Vol] 8.2 mg/dL Critically low 8.5-10.1 [facility] Comment on above: Performed By: #### B MP #### [facility] [address] [place] [address] Dr. Carrington Chandler Chloride [Moles/Vol] 102 mmol/L Normal 98-107 [facility] Comment on above: Performed By: #### B MP #### [facility] [address] [place] [address] Dr. Carrington Chandler CO2 [Moles/Vol] 31.2 mmol/L Normal 21.0-32.0 [facility] [place] Comment on above: Performed By: #### B MP #### [facility] [address] [place] [address] Dr. Carrington Chandler Creatinine [Mass/Vol] 0.90 mg/dL Normal 0.70-1.30 [facility] Comment on above: Performed By: #### B MP #### [facility] [address] [address] [address] Carrington Chandler EGFR-AF PALAUAN >60 Normal >=60 [facility] [place] Comment on above: Performed By: #### B MP #### [facility] [address] [address] [address] Carrington Chandler EGFR-NON AF PALAUAN >60 Normal >=60 [facility] Comment on above: Performed By: #### B MP #### [facility] [address] [address] [address] Carrington Chandler Glucose [Mass/Vol] 100 mg/dL Normal 74-106 [facility] Comment on above: Performed By: #### B MP #### [facility] [address] [place] [address] Dr. Carrington Chandler Potassium [Moles/Vol] 3.8 mmol/L Normal 3.5-5.1 [facility] Comment on above: Performed By: #### B MP #### [facility] [address] [place] [address] Dr. Carrington Chandler Sodium [Moles/Vol] 136 mmol/L Normal 136-145 [facility] Comment on above: Performed By: #### B MP #### [facility] [address] [address] [address] Carrington Chandler Urea nitrogen [Mass/Vol] 16.0 mg/dL Normal 7.0-18.0 [facility] Comment on above: Performed By: #### B MP #### [facility] [address] [address] [address] Carrington Chandler Urea nitrogen/Creatinine [Mass ratio] 17.8 mg/mg Normal [facility] Comment on above: Performed By: #### B MP #### [facility] [address] [place] [address] Dr. Carrington Chandler XR CHEST 1 Von 07-09-2022 XR CHEST 1 V EXAMINATION: XR CHES T 1 V HISTORY: Nausea, dizziness and diarrhea COMPARISON: Portable chest 07/03/2022 TECHNIQUE: PA and lateral chest x-rays FINDINGS: The lung parenchyma is free of consolidation or infiltrate. No pneumothorax or pleural effusion. The cardiac, mediastinal and hilar contours are normal. The visualized osseous structures exhibit no gross abnormality. IMPRESSION: No acute cardiopulmonary abnormality. Electronically authenticated by: TEE LEWIS Date: 2022-07-09 20:51 Normal [facility] AMYLASEon 07-08-2022 Amylase [Catalytic activity/Vol] 40 U/L Normal 25- 115 [facility] Comment on above: Performed By: #### A MY, CMP, LIPA #### [facility] [address] [place] [address] Dr. Carrington Chandler CBC AUTO DIFFon 07-08-2022 BASO # 0.0 103/ul Normal 0.0-0.1 [facility] Comment on above: Performed By: #### C BC #### [facility] [address] [place] [address] Dr. Carrington Chandler Basophils/100 WBC (Bld) 0.3 % Normal 0.2-2.0 [facility] Comment on above: Performed By: #### C BC #### [facility] [address] [place] [address] Dr. Carrington Chandler EO # 0.1 103/ul Normal 0.0-0.7 [facility] Comment on above: Performed By: #### C BC #### [facility] [address] [place] [address] Dr. Carrington Chandler Eosinophils/100 WBC (Bld) 1.2 % Normal 0.9-7.0 [facility] Comment on above: Performed By: #### C BC #### [facility] [address] [place] [address] Dr. Carrington Chandler Erythrocyte distribution wid th (RBC) [Ratio] 12.9 % Normal 11.0-15.0 [facility] Comment on above: Performed By: #### C BC #### [facility] [address] [place] [address] Dr. Carrington Chandler Hematocrit (Bld) [Volume fraction] 43.2 % Normal 4 2.0-54.0 [facility] Comment on above: Performed By: #### C BC #### [facility] [address] [place] [address] Dr. Carrington Chandler Hemoglobin (Bld) [Mass/Vol] 14.4 g/dL Normal 14.0-18. 0 [facility] Comment on above: Performed By: #### C BC #### [facility] [address] [address] [address] Carrington Chandler IG # 0.02 10e3/ul Normal 0.00-0.03 [facility] Comment on above: Performed By: #### C BC #### [facility] [address] [place] [address] Dr. Carrington Chandler IG % 0.3 % Normal 0.0-0.[address] [facility] Comment on above: Performed By: #### C BC #### [facility] [address] [place] [address] Dr. Carrington Chandler LYMPH # 1.6 103/ul Normal 1.2-3.[address] [facility] Comment on above: Performed By: #### C BC #### [facility] [address] [place] [address] Dr. Carrington Chandler Lymphocytes/100 WBC (Bld) 24.0 % Normal 20.5-60.0 [facility] Comment on above: Performed By: #### C BC #### [facility] [address] [place] [address] Dr. Carrington Chandler MANUAL DIFF REQ NO Normal [facility] Comment on above: Performed By: #### C BC #### [facility] [address] [place] [address] Dr. Carrington Chandler MCH (RBC) [Entitic mass] 30.2 pg Normal 25.9-34.0 [facility] Comment on above: Performed By: #### C BC #### [facility] [address] [place] [address] Dr. Carrington Chandler MCHC (RBC) [Mass/Vol] 33.3 g/dL Normal 29.9-35.2 [facility] Comment on above: Performed By: #### C BC #### [facility] [address] [place] [address] Dr. Carrington Chandler MCV (RBC) [Entitic vol] 90.6 fL Normal 80.0-94.0 [facility] Comment on above: Performed By: #### C BC #### [facility] [address] [place] [address] Dr. Carrington Chandler MONO # 0.6 103/ul Normal 0.3-0.8 [facility] Comment on above: Performed By: #### C BC #### [facility] [address] [place] [address] Dr. Carrington Chandler Monocytes/100 WBC (Bld) 9.4 % Normal 1.7-12.0 [facility] Comment on above: Performed By: #### C BC #### [facility] [address] [place] [address] Dr. Carrington Chandler NEUT # 4.4 103/ul Normal 1.4-6.5 [facility] Comment on above: Performed By: #### C BC #### [facility] [address] [place] [address] Dr. Carrington Chandler Neutrophils/100 WBC (Bld) 64.8 % Normal 43.0-75.0 [facility] Comment on above: Performed By: #### C BC #### [facility] [address] [place] [address] Dr. Carrington Chandler Platelet mean volume (Bld) [Entitic vol] 9.5 fL Normal 9.5-13.5 [facility] Comment on above: Performed By: #### C BC #### [facility] [address] [place] [address] Dr. Carrington Chandler PLT 174 103/ul Normal 150-450 [facility] Comment on above: Performed By: #### C BC #### [facility] [address] [place] [address] Dr. Carrington Chandler RBC 4.77 106/ul Normal 4.70-6.10 [facility] Comment on above: Performed By: #### C BC #### [facility] [address] [address] [address] Carrington Chandler WBC 6.7 103/ul Normal 4.0-11.0 [facility] Comment on above: Performed By: #### C BC #### [facility] [address] [address] [address] Carrington Chandler Covid-19 PCR ([facility])on 06-25 SARS-CoV-2 (COVID-19) RNA CHARLIE+probe Ql (Unsp spec) Not detected Normal NOT DETECTED [facility] Comment on above: Result Comment: When diagnostic testing is negative, the possibility of a false negative should be considered in the context of a patient's recent exposures and the presence of clinical signs and symptoms consistent with SARS-CoV-2. This test is not yet approved or cleared by the [place] FDA. When there are no FDA-approved or cleared tests available, and other criteria are met, FDA can make tests available under an emergency access mechanism called an Emergency Use Authorization (EUA). The EUA for this test is supported by the [place] of Health and Human Service's declaration that circumstances exist to justify the emergency use of in vitro diagnostics for the detection and/or diagnosis of the virus that causes COVID-19. This EUA will remain in effect for the duration of the COVID-19 declaration justifying emergency of IVDs, unless it is terminated or revoked by the FDA (after which the test may no longer be used). Performed By: #### B MP #### [facility] [address] [place], [place] [id number] Dr. Carrington Chandler INFLUENZA A AND B AGon 07-08 INFLUANEGH SEE BELOW Normal [facility] Comment on above: Result Comment: Nega tive for Flu A protein angiten. Infection due to Flu A cannot be ruled out. Flu A angiten in the sample may be below the detection limit of the test. Performed By: #### B MP #### [facility] [address] [place] [address] Dr. Carrington Chandler INFLUBNEGH SEE BELOW Normal [facility] Comment on above: Result Comment: Nega tive for Flu B protein antigen. Infection due to Flu B cannot be ruled out. Flu B antigen in the sample may be below the detection limit of the test. Performed By: #### B MP #### [facility] [address] [place] [address] Dr. Carrington Chandler INFLUENZA A AG Negative Normal NEGATIVE SEE COMMENT [facility] Comment on above: Performed By: #### B MP #### [facility] [address] [place] [address] Dr. Carrington Chandler INFLUENZA B AG Negative Normal NEGATIVE SEE COMMENT [facility] Comment on above: Performed By: #### B MP #### [facility] [address] [place] [address] Dr. Carrington Chandler INTERNAL CONTROLS Within Normal Limits Normal Wi thin Normal Limits [facility] Comment on above: Performed By: #### B MP #### [facility] [address] [place] [address] Dr. Carrington Chandler LIPASEon 07-08-2022 Lipase [Catalytic activity/Vol] 195.0 U/L Normal 73.0 -393.0 [facility] Comment on above: Performed By: #### A MY, CMP, LIPA #### [facility] [address] [place] [address] Dr. Carrington Chandler PROF 14(COMP METB)on 022 Albumin [Mass/Vol] 3.4 g/dL Normal 3.4-5.0 [facility] Comment on above: Performed By: #### A MY, CMP, LIPA #### [facility] [address] [place] [address] Dr. Carrington Chandler Albumin/Globulin [Mass ratio] 0.8 {ratio} Normal [facility] Comment on above: Performed By: #### A MY, CMP, LIPA #### [facility] [address] [place] [address] Dr. Carrington Chandler ALP [Catalytic activity/Vol] 61 U/L Normal 46-116 [facility] Comment on above: Performed By: #### A MY, CMP, LIPA #### [facility] [address] [address] [address] Carrington Chandler ALT [Catalytic activity/Vol] 26 U/L Normal 16-63 [facility] Comment on above: Performed By: #### A MY, CMP, LIPA #### [facility] [address] [address] [address] Carrington Chandler Anion gap [Moles/Vol] 11.0 mmol/L Normal [facility] Comment on above: Performed By: #### A MY, CMP, LIPA #### [facility] [address] [address] [address] Carrington Chandler AST [Catalytic activity/Vol] 30 U/L Normal 15-37 [facility] Comment on above: Performed By: #### A MY, CMP, LIPA #### [facility] [address] [place] [address] Dr. Carrington Chandler Bilirubin [Mass/Vol] 0.3 mg/dL Normal 0.2-1.0 [facility] Comment on above: Performed By: #### A MY, CMP, LIPA #### [facility] [address] [address] [address] Carrington Chandler Calcium [Mass/Vol] 8.4 mg/dL Critically low 8.5-10.1 [facility] Comment on above: Performed By: #### A MY, CMP, LIPA #### [facility] [address] [address] [address] Carrington Chandler Chloride [Moles/Vol] 102 mmol/L Normal 98-107 [facility] Comment on above: Performed By: #### A MY, CMP, LIPA #### [facility] [address] [address] [address] Carrington Chandler CO2 [Moles/Vol] 28.1 mmol/L Normal 21.0-32.0 [facility] [place] Comment on above: Performed By: #### A MY, CMP, LIPA #### [facility] [address] [address] [address] Carrington Chandler Creatinine [Mass/Vol] 0.99 mg/dL Normal 0.70-1.30 [facility] Comment on above: Performed By: #### A MY, CMP, LIPA #### [facility] [address] [place] [address] Dr. Carrington Chandler EGFR-AF PALAUAN >60 Normal >=60 [facility] [place] Comment on above: Performed By: #### A MY, CMP, LIPA #### [facility] [address] [address] [address] Carrington Chandler EGFR-NON AF PALAUAN >60 Normal >=60 [facility] Comment on above: Performed By: #### A MY, CMP, LIPA #### [facility] [address] [place] [address] Dr. Carrington Chandler Globulin (S) [Mass/Vol] 4.3 g/dL Normal [facility] Comment on above: Performed By: #### A MY, CMP, LIPA #### [facility] [address] [place] [address] Dr. Carrington Chandler Glucose [Mass/Vol] 107 mg/dL Critically high 74-106 [facility] Comment on above: Performed By: #### A MY, CMP, LIPA #### [facility] [address] [place] [address] Dr. Carrington Chandler Potassium [Moles/Vol] 4.1 mmol/L Normal 3.5-5.1 [facility] Comment on above: Performed By: #### A MY, CMP, LIPA #### [facility] [address] [place] [address] Dr. Carrington Chandler Protein [Mass/Vol] 7.7 g/dL Normal 6.4-8.2 [facility] Comment on above: Performed By: #### A MY, CMP, LIPA #### [facility] [address] [place] [address] Dr. Carrington Chandler Sodium [Moles/Vol] 137 mmol/L Normal 136-145 [facility] Comment on above: Performed By: #### A MY, CMP, LIPA #### [facility] [address] [place] [address] Dr. Carrington Chandler Urea nitrogen [Mass/Vol] 23.0 mg/dL Critically high 7.0-18 .0 [facility] Comment on above: Performed By: #### A MY, CMP, LIPA #### [facility] [address] [place] [address] Dr. Carrington Chandler Urea nitrogen/Creatinine [Mass ratio] 23.2 mg/mg Normal [facility] Comment on above: Performed By: #### A MY, CMP, LIPA #### [facility] [address] [place] [address] Dr. Carrington Chandler CBC AUTO DIFFon 07-03-2022 BASO # 0.0 103/ul Normal 0.0-0.[address] [facility] Comment on above: Performed By: #### C MP #### [facility] [address] [place] [address] Dr. Carrington Chandler Basophils/100 WBC (Bld) 0.5 % Normal 0.2-2.0 [facility] Comment on above: Performed By: #### C MP #### [facility] [address] [place] [address] Dr. Carrington Chandler EO # 0.3 103/ul Normal 0.0-0.[address] [facility] Comment on above: Performed By: #### C MP #### [facility] [address] [place] [address] Dr. Carrington Chandler Eosinophils/100 WBC (Bld) 4.7 % Normal 0.9-7.0 [facility] Comment on above: Performed By: #### C MP #### [facility] [address] [place] [address] Dr. Carrington Chandler Erythrocyte distribution wid th (RBC) [Ratio] 12.7 % Normal 11.0-15.0 [facility] Comment on above: Performed By: #### C MP #### [facility] [address] [place] [address] Dr. Carrington Chandler Hematocrit (Bld) [Volume fraction] 38.8 % Critically low 42.0-54.0 [facility] Comment on above: Performed By: #### C MP #### [facility] [address] [address] [address] Carrington Chandler Hemoglobin (Bld) [Mass/Vol] 13.2 g/dL Critically low 14.0 -18.0 [facility] Comment on above: Performed By: #### C MP #### [facility] [address] [place] [address] Dr. Carrington Chandler IG # 0.01 10e3/ul Normal 0.00-0.03 [facility] Comment on above: Performed By: #### C MP #### [facility] [address] [place] [address] Dr. Carrington Chandler IG % 0.2 % Normal 0.0-0.[address] [facility] Comment on above: Performed By: #### C MP #### [facility] [address] [place] [address] Dr. Carrington Chandler LYMPH # 1.4 103/ul Normal 1.2-3.[address] [facility] Comment on above: Performed By: #### C MP #### [facility] [address] [place] [address] Dr. Carrington Chandler Lymphocytes/100 WBC (Bld) 25.2 % Normal 20.5-60.0 [facility] Comment on above: Performed By: #### C MP #### [facility] [address] [place] [address] Dr. Carrington Chandler MANUAL DIFF REQ NO Normal [facility] Comment on above: Performed By: #### C MP #### [facility] [address] [place] [address] Dr. Carrington Chandler MCH (RBC) [Entitic mass] 30.3 pg Normal 25.9-34.0 [facility] Comment on above: Performed By: #### C MP #### [facility] [address] [place] [address] Dr. Carrington Chandler MCHC (RBC) [Mass/Vol] 34.0 g/dL Normal 29.9-35.2 [facility] Comment on above: Performed By: #### C MP #### [facility] [address] [place] [address] Dr. Carrington Chandler MCV (RBC) [Entitic vol] 89.2 fL Normal 80.0-94.0 [facility] Comment on above: Performed By: #### C MP #### [facility] [address] [place] [address] Dr. Carrington Chandler MONO # 0.6 103/ul Normal 0.3-0.8 [facility]ital Comment on above: Performed By: #### C MP #### [facility] [address] [place] [address] Dr. Carrington Chandler Monocytes/100 WBC (Bld) 10.2 % Normal 1.7-12.0 [facility] Comment on above: Performed By: #### C MP #### [facility] [address] [place] [address] Dr. Carrington Chandler NEUT # 3.3 103/ul Normal 1.4-6.5 [facility] ostal Comment on above: Performed By: #### C MP #### [facility] [address] [place] [address] Dr. Carrington Chandler Neutrophils/100 WBC (Bld) 59.2 % Normal 43.0-75.0 [facility] Comment on above: Performed By: #### C MP #### [facility] [address] [place] [address] Dr. Carrington Chandler Platelet mean volume (Bld) [Entitic vol] 9.1 fL Critically low 9.5-13.5 The [facility] Comment on above: Performed By: #### C MP #### [facility] [address] [place] [address] Dr. Carrington Chandler PLT 199 103/ul Normal 150-450 [facility] Comment on above: Performed By: #### C MP #### [facility] [address] [place] [address] Dr. Carrington Chandler RBC 4.35 106/ul Critically low 4.70-6.10 [facility] Comment on above: Performed By: #### C MP #### [facility] [address] [place] [address] Dr. Carrington Chandler WBC 5.5 103/ul Normal 4.0-11.[address] [facility] Comment on above: Performed By: #### C MP #### [facility] [address] [place] [address] Dr. Carrington Chandler Covid-19 PCR ([facility]on SARS-CoV-2 (COVID-19) RNA CHARLIE+probe Ql (Unsp spec) Not detected Normal NOT DETECTED [facility] Comment on above: Result Comment: When diagnostic testing is negative, the possibility of a false negative should be considered in the context of a patient's recent exposures and the presence of clinical signs and symptoms consistent with SARS-CoV-2. This test is not yet approved or cleared by the [place] FDA. When there are no FDA-approved or cleared tests available, and other criteria are met, FDA can make tests available under an emergency access mechanism called an Emergency Use Authorization (EUA). The EUA for this test is supported by the Complaint Analyst of Health and Human Service's declaration that circumstances exist to justify the emergency use of in vitro diagnostics for the detection and/or diagnosis of the virus that causes COVID-19. This EUA will remain in effect for the duration of the COVID-19 declaration justifying emergency of IVDs, unless it is terminated or revoked by the FDA (after which the test may no longer be used). Performed By: #### B MP #### [facility] [address] [place] [address] Dr. Carrington Chandler PROF 14(COMP METB)on 022 Albumin [Mass/Vol] 3.8 g/dL Normal 3.4-5.0 [facility] Comment on above: Performed By: #### C MP #### [facility] [address] [place] [address] Dr. Carrington Chandler Albumin/Globulin [Mass ratio] 1.0 {ratio} Normal [facility] Comment on above: Performed By: #### C MP #### [facility] [address] [place] [address] Dr. Carrington Chandler ALP [Catalytic activity/Vol] 69 U/L Normal 46-116 [facility] Comment on above: Performed By: #### C MP #### [facility] [address] [place] [address] Dr. Carrington Chandler ALT [Catalytic activity/Vol] 18 U/L Normal 16-63 [facility] Comment on above: Performed By: #### C MP #### [facility] [address] [place] [address] Dr. Carrington Chandler Anion gap [Moles/Vol] 13.3 mmol/L Normal [facility] Comment on above: Performed By: #### C MP #### [facility] [address] [place] [address] Dr. Carrington Chandler AST [Catalytic activity/Vol] 19 U/L Normal 15-37 [facility] Comment on above: Performed By: #### C MP #### [facility] [address] [place] [address] Dr. Carrington Chandler Bilirubin [Mass/Vol] 0.3 mg/dL Normal 0.2-1.0 [facility] Comment on above: Performed By: #### C MP #### [facility] [address] [place] [address] Dr. Carrington Chandler Calcium [Mass/Vol] 9.0 mg/dL Normal 8.5-10.1 [facility] Comment on above: Performed By: #### C MP #### [facility] [address] [place] [address] Dr. Carrington Chandler Chloride [Moles/Vol] 101 mmol/L Normal 98-107 [facility] Comment on above: Performed By: #### C MP #### [facility] [address] [place] [address] Dr. Carrington Chandler CO2 [Moles/Vol] 26.7 mmol/L Normal 21.0-32.0 [facility] [place] Comment on above: Performed By: #### C MP #### [facility] [address] [place] [address] Dr. Carrington Chandler Creatinine [Mass/Vol] 1.06 mg/dL Normal 0.70-1.30 [facility] Comment on above: Performed By: #### C MP #### [facility] [address] [address] [address] Carrington Chandler EGFR-AF PALAUAN >60 Normal >=60 [facility] [place] Comment on above: Performed By: #### C MP #### [facility] [address] [address] [address] Carrington Chandler EGFR-NON AF PALAUAN >60 Normal >=60 [facility] Comment on above: Performed By: #### C MP #### [facility] [address] [address] [address] Carrington Chandler Globulin (S) [Mass/Vol] 3.8 g/dL Normal [facility] Comment on above: Performed By: #### C MP #### [facility] [address] [place] [address] Dr. Carrington Chandler Glucose [Mass/Vol] 98 mg/dL Normal 74-106 [facility] Comment on above: Performed By: #### C MP #### [facility] [address] [address] [address] Carrington Chandler Potassium [Moles/Vol] 4.0 mmol/L Normal 3.5-5.1 [facility] Comment on above: Performed By: #### C MP #### [facility] [address] [place] [address] Dr. Carrington Chandler Protein [Mass/Vol] 7.6 g/dL Normal 6.4-8.2 [facility] Comment on above: Performed By: #### C MP #### [facility] [address] [address] [address] Carrington Chandler Sodium [Moles/Vol] 137 mmol/L Normal 136-145 [facility] Comment on above: Performed By: #### C MP #### [facility] [address] [place] [address] Dr. Carrington Chandler Urea nitrogen [Mass/Vol] 21.0 mg/dL Critically high 7.0-18 .0 [facility] Comment on above: Performed By: #### C MP #### [facility] [address] [place] [address] Dr. Carrington Chandler Urea nitrogen/Creatinine [Mass ratio] 19.8 mg/mg Normal [facility] Comment on above: Performed By: #### C MP #### [facility] [address] [place] [address] Dr. Carrington Chandler XR CHEST 1 Von 07-03-2022 XR CHEST 1 V EXAMINATION: XR CHES T 1 V, , 07/03/2022 8:21 PM EST INDICATION: COUGH HISTORY: Ordering Provider Reason for Exam: Technologist Note: Additional: COMPARISON: CT abdomen/pelvis dated 07/24/2021 and chest x-ray dated 02/03/2022. TECHNIQUE: Chest x-ray: One view. FINDINGS: The heart size is normal. Stable appearing medial right lower lung opacity is seen, which may represent the posteromedial consolidation seen on prior CT of the abdomen/pelvis. Stable scar/atelectatic changes are also seen in the right midlung field. No significant pleural effusion or pneumothorax is seen. IMPRESSION: Stable appearing medial right lower lung opacity is seen, which may represent the posteromedial consolidation seen on prior CT of the abdomen/pelvis. Electronically authenticated by: CYNTHIA VASQUEZ Date: 2022-07-03 21:16 Normal [facility] CBC AUTO DIFFon 02-03-2022 BASO # 0.0 103/ul Normal 0.0-0.1 [facility] Comment on above: Performed By: #### C BC #### [facility] [address] [place] [address] Dr. Carrington Chandler Basophils/100 WBC (Bld) 0.3 % Normal 0.2-2.0 [facility] Comment on above: Performed By: #### C BC #### [facility] [address] [place] [address] Dr. Carrington Chandler EO # 0.1 103/ul Normal 0.0-0.7 [facility]ital Comment on above: Performed By: #### C BC #### [facility] [address] [place] [address] Dr. Carrington Chandler Eosinophils/100 WBC (Bld) 0.9 % Normal 0.9-7.0 [facility] Comment on above: Performed By: #### C BC #### [facility] [address] [place] [address] Dr. Carrington Chandler Erythrocyte distribution wid th (RBC) [Ratio] 13.9 % Normal 11.0-15.0 [facility] Comment on above: Performed By: #### C BC #### [facility] [address] [place] [address] Dr. Carrington Chandler Hematocrit (Bld) [Volume fraction] 40.4 % Critically low 42.0-54.0 [facility] Comment on above: Performed By: #### C BC #### [facility] [address] [place] [address] Dr. Carrington Chandler Hemoglobin (Bld) [Mass/Vol] 13.4 g/dL Critically low 14.0 -18.0 [facility] Comment on above: Performed By: #### C BC #### [facility] [address] [place] [address] Dr. Carrington Chandler IG # 0.03 10e3/ul Normal 0.00-0.03 [facility] Comment on above: Performed By: #### C BC #### [facility] [address] [place] [address] Dr. Carrington Chandler IG % 0.3 % Normal 0.0-0.5 [facility] Comment on above: Performed By: #### C BC #### [facility] [address] [place] [address] Dr. Carrington Chandler LYMPH # 1.5 103/ul Normal 1.2-3.8 [facility] Comment on above: Performed By: #### C BC #### [facility] [address] [place] [address] Dr. Carrington Chandler Lymphocytes/100 WBC (Bld) 12.3 % Critically low 20.5-6 0.0 [facility] Comment on above: Performed By: #### C BC #### [facility] [address] [place] [address] Dr. Carrington Chandler MANUAL DIFF REQ NO Normal [facility] Comment on above: Performed By: #### C BC #### [facility] [address] [place] [address] Dr. Carrington Chandler MCH (RBC) [Entitic mass] 30.0 pg Normal 25.9-34.0 [facility] Comment on above: Performed By: #### C BC #### [facility] [address] [place] [address] Dr. Carrington Chandler MCHC (RBC) [Mass/Vol] 33.2 g/dL Normal 29.9-35.2 [facility] Comment on above: Performed By: #### C BC #### [facility] [address] [place] [address] Dr. Carrington Chandler MCV (RBC) [Entitic vol] 90.6 fL Normal 80.0-94.0 [facility] Comment on above: Performed By: #### C BC #### [facility] [address] [place] [address] Dr. Carrington Chandler MONO # 1.0 103/ul Critically high 0.3-0.8 [facility] Comment on above: Performed By: #### C BC #### [facility] [address] [place] [address] Dr. Carrington Chandler Monocytes/100 WBC (Bld) 8.5 % Normal 1.7-12.0 [facility] Comment on above: Performed By: #### C BC #### [facility] [address] [place] [address] Dr. Carrington Chandler NEUT # 9.2 103/ul Critically high 1.4-6.5 [facility] Comment on above: Performed By: #### C BC #### [facility] [address] [place] [address] Dr. Carrington Chandler Neutrophils/100 WBC (Bld) 77.7 % Critically high 43.0- 75.0 [facility] Comment on above: Performed By: #### C BC #### [facility] [address] [place] [address] Dr. Carrington Chandler Platelet mean volume (Bld) [Entitic vol] 9.5 fL Normal 9.5-13.5 [facility] Comment on above: Performed By: #### C BC #### [facility] [address] [address] [address] Carrington Chandler PLT 204 103/ul Normal 150-450 [facility] Comment on above: Performed By: #### C BC #### [facility] [address] [address] [address] Carrington Chandler RBC 4.46 106/ul Critically low 4.70-6.10 [facility] Comment on above: Performed By: #### C BC #### [facility] [address] [place] [address] Dr. Carrington Chandler WBC 11.9 103/ul Critically high 4.0-11.0 [facility] Comment on above: Performed By: #### C BC #### [facility] [address] [address] [address] Carrington Chandler Covid-19 PCR (CVDTB)on 01-23 SARS-CoV-2 (COVID-19) RNA CHARLIE+probe Ql (Unsp spec) Not detected Normal NOT DETECTED [facility] Comment on above: Result Comment: When diagnostic testing is negative, the possibility of a false negative should be considered in the context of a patient's recent exposures and the presence of clinical signs and symptoms consistent with SARS-CoV-2. This test is not yet approved or cleared by the [place] FDA. When there are no FDA-approved or cleared tests available, and other criteria are met, FDA can make tests available under an emergency access mechanism called an Emergency Use Authorization (EUA). The EUA for this test is supported by the Complaint Analyst of Health and Human Service's declaration that circumstances exist to justify the emergency use of in vitro diagnostics for the detection and/or diagnosis of the virus that causes COVID-19. This EUA will remain in effect for the duration of the COVID-19 declaration justifying emergency of IVDs, unless it is terminated or revoked by the FDA (after which the test may no longer be used). Performed By: #### C VDTBH #### [facility] [address] [address] [address] Carrington Chandler PROF 14(COMP METB)on 022 Albumin [Mass/Vol] 3.7 g/dL Normal 3.4-5.0 [facility] Comment on above: Performed By: #### C MP #### [facility] [address] [address] [address] Carrington Chandler Albumin/Globulin [Mass ratio] 0.9 {ratio} Normal [facility] Comment on above: Performed By: #### C MP #### [facility] [address] [place] [address] Dr. Carrington Chandler ALP [Catalytic activity/Vol] 62 U/L Normal 46-116 [facility] Comment on above: Performed By: #### C MP #### [facility] [address] [place] [address] Dr. Carrington Chandler ALT [Catalytic activity/Vol] 21 U/L Normal 16-63 [facility] Comment on above: Performed By: #### C MP #### [facility] [address] [place] [address] Dr. Carrington Chandler Anion gap [Moles/Vol] 12.3 mmol/L Normal [facility] Comment on above: Performed By: #### C MP #### [facility] [address] [place] [address] Dr. Carrington Chandler AST [Catalytic activity/Vol] 13 U/L Critically low 15- 37 [facility] Comment on above: Performed By: #### C MP #### [facility] [address] [place] [address] Dr. Carrington Chandler Bilirubin [Mass/Vol] 0.5 mg/dL Normal 0.2-1.0 [facility] Comment on above: Performed By: #### C MP #### [facility] [address] [place] [address] Dr. Carrington Chandler Calcium [Mass/Vol] 9.1 mg/dL Normal 8.5-10.1 [facility] Comment on above: Performed By: #### C MP #### [facility] [address] [address] [address] Carrington Chandler Chloride [Moles/Vol] 102 mmol/L Normal 98-107 [facility] Comment on above: Performed By: #### C MP #### [facility] [address] [address] [address] Carrington Chandler CO2 [Moles/Vol] 24.9 mmol/L Normal 21.0-32.0 [facility] [place] Comment on above: Performed By: #### C MP #### [facility] [address] [address] [address] Carrington Chandler Creatinine [Mass/Vol] 1.36 mg/dL Critically high 0.70-1.30 [facility] Comment on above: Performed By: #### C MP #### [facility] [address] [place] [address] Dr. Carrington Chandler EGFR-AF PALAUAN >60 Normal >=60 [facility] [place] Comment on above: Performed By: #### C MP #### [facility] [address] [place] [address] Dr. Carrington Chandler EGFR-NON AF PALAUAN 53 mL/min/1.73m2 Critically low >=60 [facility] Comment on above: Performed By: #### C MP #### [facility] [address] [place] [address] Dr. Carrington Chandler Globulin (S) [Mass/Vol] 3.9 g/dL Normal [facility] Comment on above: Performed By: #### C MP #### [facility] [address] [place] [address] Dr. Carrington Chandler Glucose [Mass/Vol] 138 mg/dL Critically high 74-106 [facility] Comment on above: Performed By: #### C MP #### [facility] [address] [place] [address] Dr. Carrington Chandler Potassium [Moles/Vol] 4.2 mmol/L Normal 3.5-5.1 [facility] Comment on above: Performed By: #### C MP #### [facility] [address] [place] [address] Dr. Carrington Chandler Protein [Mass/Vol] 7.6 g/dL Normal 6.4-8.2 [facility] Comment on above: Performed By: #### C MP #### [facility] [address] [place] [address] Dr. Carrington Chandler Sodium [Moles/Vol] 135 mmol/L Critically low 136-145 [facility] Comment on above: Performed By: #### C MP #### [facility] [address] [address] [address] Carrington Chandler Urea nitrogen [Mass/Vol] 24.0 mg/dL Critically high 7.0-18 .0 [facility] Comment on above: Performed By: #### C MP #### [facility] [address] [address] [address] Carrington Chandler Urea nitrogen/Creatinine [Mass ratio] 17.6 mg/mg Normal [facility] Comment on above: Performed By: #### C MP #### [facility] [address] [address] [address] Carrington Chandler XR CHEST 1 Von 02-03-2022 XR CHEST 1 V EXAM: XR CHEST 1 V HISTORY: COUGH COMPARISON: Chest x-ray performed 09/11/[address] thorax . TECHNIQUE: AP portable upright view of the chest is obtained. FINDINGS: The cardiomediastinal silhouette is nonenlarged. Pulmonary vascular markings are within normal limits. Chronic right lower lobe atelectasis. There is mild blunting of the right costophrenic angle. The left costophrenic angle is clear. Linear atelectatic change at the right lung base. No pneumothorax. The osseous structures are grossly intact. IMPRESSION: 1. No acute cardiopulmonary process identified. 2. Persistent right lower lobe lobar atelectasis and small right effusion with linear scarring or atelectasis at the inferior right upper lobe. Recommendation: Bronchial neoplasm cannot be excluded. Nonemergent bronchoscopy if not previously performed is recommended. Electronically authenticated by: DAREK MARX Date: 2022-02-03 02:09 Normal [facility] Vital Signs Date Time Vital Sign Value Performing Clinician Facility 06-24-2023 11:00-0500 Body height 171.45 cm Brock Modi Other [facility] Other 06-24-2023 11:00-0500 Body mass index (BMI) [Ratio] 34.56 kg/m2 Brock Modi Other [facility] Other 06-24-2023 11:00-0500 Body temperature 98.1 [degF] Brock Modi Other [facility] Other 06-24-2023 11:00-0500 Body weight 101.61 kg Brock Modi Other [facility] Other 06-24-2023 11:00-0500 Diastolic blood pressure 67 mm[Hg] Brock Modi Other [facility] Other 06-24-2023 11:00-0500 SaO2% (BldA) [Mass fraction] 95 % Brock Modi Other [facility] Other 06-24-2023 11:00-0500 Systolic blood pressure 109 mm[Hg] Brock Modi Other [facility] Other 03-16-2023 11:30-0400 Body height 171.45 cm Brock Modi Other [facility] Other 03-16-2023 11:30-0400 Body mass index (BMI) [Ratio] 33.48 kg/m2 Brock Modi Other [facility] Other 03-16-2023 11:30-0400 Body weight 98.43 kg Brock Modi Other [facility] Other 03-16-2023 11:30-0400 Diastolic blood pressure 67 mm[Hg] Brock Modi Other [facility] Other 03-16-2023 11:30-0400 SaO2% (BldA) [Mass fraction] 93 % Brock Modi Other [facility] Other 03-16-2023 11:30-0400 Systolic blood pressure 114 mm[Hg] Brock Modi Other [facility] Other 02-04-2023 13:30-0400 Body height 171.45 cm Brock Modi Other [facility] Other 02-04-2023 13:30-0400 Body mass index (BMI) [Ratio] 33.64 kg/m2 Brock Modi Other [facility] Other 02-04-2023 13:30-0400 Body weight 98.88 kg Brock Modi Other [facility] Other 02-04-2023 13:30-0400 Diastolic blood pressure 67 mm[Hg] Brock Modi Other [facility] Other 02-04-2023 13:30-0400 SaO2% (BldA) [Mass fraction] 96 % Brock Modi Other [facility] Other 02-04-2023 13:30-0400 Systolic blood pressure 117 mm[Hg] Brock Modi Other [facility] Other 12-24-2022 14:08-0400 Body height 167.64 cm Brock Modi Work Phone: [facility] 250 DO Work Phone: 12-24-2022 14:08-0400 Body mass index (BMI) [Ratio] 35.02 kg/m2 Brock Modi Work Phone: [facility] 250 DO Work Phone: 12-24-2022 14:08-0400 Body surface area Derived from formula 2.07 m2 Brock Modi Work Phone: [facility] 250 DO Work Phone: 12-24-2022 14:08-0400 Body weight 98.43 kg Brcok Modi Work Phone: [facility] 250 DO Work Phone: 12-24-2022 14:08-0400 Diastolic blood pressure 80 mm[Hg] Brock Modi Work Phone: [facility] 250 DO Work Phone: 12-24-2022 14:08-0400 Heart rate 115 /min Brock Modi Work Phone: [facility] 250 DO Work Phone: 12-24-2022 14:08-0400 Systolic blood pressure 124 mm[Hg] Brock Modi Work Phone: [facility] [employer] 250 DO Work Phone: 11-27-2022 11:00-0400 Body height 171.45 cm Wagner Marrufo Other [facility] [employer] Other 11-27-2022 11:00-0400 Body mass index (BMI) [Ratio] 33.48 kg/m2 Wagner Marrufo Other [facility] [employer] Other 11-27-2022 11:00-0400 Body weight 98.43 kg Wagner Marrufo Other [facility] Other 11-12-2022 12:45-0400 Body height 171.45 cm Brock Modi Other [facility] [employer] Other 11-12-2022 12:45-0400 Body mass index (BMI) [Ratio] 33.48 kg/m2 Brock Modi Other [facility] Other 11-12-2022 12:45-0400 Body weight 98.43 kg Brock Modi Other [facility] Other 11-12-2022 12:45-0400 Diastolic blood pressure 78 mm[Hg] Brock Modi Other [facility] Other 11-12-2022 12:45-0400 SaO2% (BldA) [Mass fraction] 92 % Brock Modi Other [facility] Other 11-12-2022 12:45-0400 Systolic blood pressure 122 mm[Hg] Brock Modi Other [facility] Other 10-21-2022 15:18-0400 Body height 167.64 cm Brock Modi Work Phone: [facility] DO Work Phone: 10-21-2022 15:18-0400 Body mass index (BMI) [Ratio] 35.51 kg/m2 Brock Modi Work Phone: [facility] DO Work Phone: 10-21-2022 15:18-0400 Body surface area Derived from formula 2.08 m2 Brock Modi Work Phone: [facility] DO Work Phone: 10-21-2022 15:18-0400 Body weight 99.79 kg Brock Modi Work Phone: [facility] DO Work Phone: 10-21-2022 15:18-0400 Diastolic blood pressure 70 mm[Hg] Brock Modi Work Phone: [facility] [employer] 250 DO Work Phone: 10-21-2022 15:18-0400 Heart rate 84 /min Brock Modi Work Phone: [facility] [employer] 250 DO Work Phone: 10-21-2022 15:18-0400 Systolic blood pressure 126 mm[Hg] Brock Modi Work Phone: [facility] [employer] 250 DO Work Phone: 10-15-2022 11:15-0400 Body height 171.45 cm Brock Modi Other [facility] Other 10-15-2022 11:15-0400 Body mass index (BMI) [Ratio] 33.33 kg/m2 Brock Modi Other [facility] Other 10-15-2022 11:15-0400 Body weight 97.98 kg Brock Modi Other [facility] Other 10-15-2022 11:15-0400 Diastolic blood pressure 84 mm[Hg] Brock Modi Other [facility] Other 10-15-2022 11:15-0400 SaO2% (BldA) [Mass fraction] 94 % Brock Modi Other [facility] Other 10-15-2022 11:15-0400 Systolic blood pressure 122 mm[Hg] Brock Modi Other [facility] Other 10-13-2022 11:57-0400 Body temperature 97.4 [degF] MD Brock Modi Work Phone: [facility] 10-13-2022 11:57-0400 Diastolic blood pressure 85 mm[Hg] MD Brock Modi Work Phone: [facility] 10-13-2022 11:57-0400 Heart rate 107 /min MD Brock Modi Work Phone: [facility] 10-13-2022 11:57-0400 Inhaled oxygen flow rate 2 L/min MD Brock Modi Work Phone: [facility] 10-13-2022 11:57-0400 Respiratory rate 17 /min MD Brock Modi Work Phone: [facility] 10-13-2022 11:57-0400 SaO2% (BldA) [Mass fraction] 97 % MD Brock Modi Work Phone: [facility] 10-13-2022 11:57-0400 Systolic blood pressure 125 mm[Hg] MD Brock Modi Work Phone: [facility] 10-13-2022 04:32-0400 Body weight 97.52 kg MD Brock Modi Work Phone: [facility] 10-10-2022 08:46-0400 65 1 Brock Modi Work Phone: [facility] 250 DO Work Phone: Comment on above: [id number] 10-10-2022 04:57-0400 Body height 170.18 cm MD Brock Modi Work Phone: [facility] 09-09-2022 14:30-0500 Body height 171.45 cm Wagner Marrufo Other [facility] [employer] Other 09-09-2022 14:30-0500 Body mass index (BMI) [Ratio] 34.41 kg/m2 Wagner Marrufo Other [facility] [employer] Other 09-09-2022 14:30-0500 Body weight 101.15 kg Wagner Marrufo Other [facility] [employer] Other 08-13-2022 12:15-0500 Body height 171.45 cm Brock Modi Other [facility] Other 08-13-2022 12:15-0500 Body mass index (BMI) [Ratio] 34.38 kg/m2 Brock Modi Other [facility] Other 08-13-2022 12:15-0500 Body weight 101.06 kg Brock Modi Other [facility] Other 08-13-2022 12:15-0500 Diastolic blood pressure 84 mm[Hg] Brock Modi Other [facility] Other 08-13-2022 12:15-0500 SaO2% (BldA) [Mass fraction] 97 % Brock Modi Other [facility] Other 08-13-2022 12:15-0500 Systolic blood pressure 132 mm[Hg] Brock Modi Other [facility] Other 07-30-2022 12:30-0500 Body height 171.45 cm Brock Modi Other [facility] Other 07-30-2022 12:30-0500 Body mass index (BMI) [Ratio] 32.71 kg/m2 Brock Modi Other [facility] Other 07-30-2022 12:30-0500 Body weight 96.16 kg Brock Modi Other [facility] Other 07-30-2022 12:30-0500 Diastolic blood pressure 80 mm[Hg] Brock Modi Other [facility] Other 07-30-2022 12:30-0500 SaO2% (BldA) [Mass fraction] 97 % Brock Modi Other [facility] Other 07-30-2022 12:30-0500 Systolic blood pressure 122 mm[Hg] Brock Modi Other [facility] Other Encounters Encounter Date Encounter Type Care Provider Facility Start: 06-24-2023 End: 06-24-2023 ambulatory Brock Modi Other [facility] Other Start: 06-24-2023 Office outpatient vi sit 15 minutes Brock Modi [facility] Start: 04-07-[address] Alok Webber Facility: Start: 04-02-2023 End: 04-02-2023 ambulatory Brock Modi Other [facility] Other Start: 04-02-2023 Telephone encounter Brock Modi [facility] Start: 03-19-2023 End: 03-19-2023 ambulatory Brock Modi Other [facility] Other Start: 03-19-2023 Telephone encounter Brock Modi [facility] Start: 03-16-2023 End: 03-16-2023 ambulatory Brock Modi Other [facility] Other Start: 03-16-2023 Office outpatient vi sit 15 minutes Brock Modi [facility] Start: 02-04-2023 End: 02-04-2023 ambulatory Brock Modi Other [facility] Other Start: 02-04-2023 Office outpatient vi sit 15 minutes Brock Modi [facility] Start: 01-29-2023 End: 01-29-2023 ambulatory Viral Yang Other [facility] Other Start: 01-29-2023 Telephone encounter Viral Yang [facility] Start: 01-27-2023 Rx Renewal Brock Modi Work Phone: [facility] 250 DO Work Phone: Start: 01-19-2023 Patient encounter procedure Brock Urbano Modi Work Phone: [facility] 250A [place] Work Phone: Start: 01-14-2023 End: 01-14-2023 ambulatory Brock Ly Other [facility] Other Start: 01-14-2023 Telephone encounter Brock Modi [facility] Start: 12-24-2022 Office outpatient vi sit 40 minutes Brock Modi Work Phone: [facility] 250 DO Work Phone: Start: 12-24-[address] Alok chauhan [place] Facility: Start: 12-04-2022 End: 12-04-2022 ambulatory Brock Ly Other [facility] Other Start: 12-04-2022 Telephone encounter Brock Modi [facility] Start: 12-03-2022 End: 12-03-2022 ambulatory Brock Ly Other [facility] Other Start: 12-03-2022 Telephone encounter Brock Modi [facility] Start: 11-27-2022 End: 11-27-2022 ambulatory Wagner Marrufo Other [facility] Other Start: 11-27-2022 Office outpatient vi sit 25 minutes Wagner Marrufo [facility] Start: 11-12-2022 End: 11-12-2022 ambulatory Brock Ly Other [facility] Other Start: 11-12-2022 Office outpatient vi sit 15 minutes Brock Modi [facility] Start: 11-04-2022 ambulatory JANINE Burton ty:H1 Start: 11-03-2022 End: 11-03-2022 ambulatory Adi Campos Facility:[facility] Start: 11-03-2022 End: 11-03-2022 ambulatory MD Brock Modi Work Phone: [facility] Work Phone: Start: 11-03-2022 End: 11-03-2022 Patient encounter procedure MD Brock Modi Work Phone: [facility]-CT Scan [place] Work Phone: Start: 11-02-2022 Patient encounter procedure Brock Modi Work Phone: [facility] 047 DO Work Phone: Start: 11-02-2022 ambulatory Janine Cunha Facility:[id number] Start: 10-29-2022 Chart Update Brock Modi Work Phone: [facility] 600 DO Work Phone: Start: 10-28-2022 End: 10-28-2022 ambulatory Janine Cunha Facility:[facility] Start: 10-28-2022 End: 10-28-2022 ambulatory MD Brock Modi Work Phone: [facility] Work Phone: Start: 10-28-2022 End: 10-28-2022 Patient encounter procedure MD Brock Modi Work Phone: [facility]-Lab [place] Work Phone: Start: 10-27-2022 End: 10-27-2022 ambulatory Brock Modi Other [facility] [employer] Other Start: 10-27-2022 Telephone encounter Brock Modi [facility] Start: 10-21-2022 Transitional care juan diego neri srvc 14 day discharge Brock Modi Work Phone: [facility] 250 DO Work Phone: Start: 10-21-2022 End: 10-21-2022 ambulatory Janine Cunha [facility] Other Start: 10-21-2022 Telephone encounter Kenyrenetta Beth [facility] Start: 10-20-2022 End: 10-20-2022 ambulatory Adi Campos Other [facility] Other Start: 10-20-2022 Office outpatient ne w 45 minutes Adi Campos [facility] Start: 10-15-2022 End: 10-15-2022 ambulatory Brock Modi Other [facility] Other Start: 10-15-2022 Office outpatient vi sit 15 minutes Brock Modi [facility] Start: 10-10-[address] Brock Modi Facility:[id number] Start: 10-10-2022 End: 10-13-2022 Evaluation and management of inpatient Farida Berrios Facility:[facility] Start: 10-10-2022 End: 10-13-2022 Evaluation and management of inpatient MD Brock Modi Work Phone: [facility] [place] [facility] Work Phone: Start: 10-10-2022 End: 10-10-2022 ambulatory COLIN TREADWELL Facility:H1 Start: 09-09-2022 End: 09-09-2022 ambulatory Wagner Marrufo Facility:[facility] Start: 09-09-2022 Office outpatient ne w 45 minutes Wagner Marrufo [facility] Start: 09-09-2022 End: 09-09-2022 ambulatory DO Wagner Marrufo Work Phone: [facility] Work Phone: Start: 09-09-2022 End: 09-09-2022 Patient encounter procedure DO Wagner Marrufo Work Phone: [facility] [place] [facility] Start: 09-07-2022 End: 09-08-2022 ambulatory COLIN TREADWELL Facility:H1 Start: 08-13-2022 End: 08-13-2022 ambulatory Brock Modi Other [facility] Other Start: 08-13-2022 Office outpatient vi sit 15 minutes Brock Modi [facility] Start: 08-10-2022 End: 08-11-[address] BROCK MODI Facility:H1 Start: 07-30-2022 End: 07-30-2022 ambulatory Brock Modi Other [facility] Other Start: 07-30-2022 Office outpatient vi sit 25 minutes Brock Modi [facility] Start: 07-28-2022 End: 07-28-2022 ambulatory Brock Modi Other [facility] Other Start: 07-28-2022 Telephone encounter Brock Modi [facility] Start: 07-10-2022 End: 07-11-[address] CAR LIGHT Facility:H1 Start: 07-08-2022 End: 07-08-[address] JANELLE Moser Facility:H1 Start: 07-05-2022 End: 07-05-[address] RUBÉN DALY Facility:H1 Start: 07-03-2022 End: 07-04-[address] ARLIN CUNHA Facility:H1 Start: 02-03-2022 End: 02-03-[address] ARLIN CUNHA Facility:H1 Patient encounter status Brock Modi Work Phone: [place] [address] DO Work Phone: Procedures Date Procedure Procedure Detail Performing Clinician Start: 11-03-2022 CT of thorax with contrast MD Brock Modi Work Phone: Start: 10-11-2022 Plain chest X-ray MD Juan Diego Modi Work Phone: Start: 10-10-2022 CL LHC & COR Angio MD Rahat Modi Work Phone: Start: 10-10-2022 CL Stent 1st Vessel CX ANTONIO MD Brock Modi Work Phone: Start: 10-10-2022 CL Stent 1st Vessel RCA ANTONIO MD Brock Modi Work Phone: Start: 10-10-2022 MD Brock Modi Work Phone: Start: 09-09-2022 X-ray of right knee DO Wagner Marrufo Work Phone: Appendectomy Brock Modi Work Phone: Cardiac catheterization Car Modi Work Phone: Plan of Treatment Date Care Activity Detail Author Start: 04-07-2023 FUV, Provider: Alok Webber, Status: Pen, Time: 11:20 AM FUV, Provider: Alok Webber, Status: Pen, Time: 11:20 AM -[facility] 250 DO Work Phone: Start: 01-19-2023 FUV, Provider: Alok Webber, Status: Pen, Time: 2:30 PM FUV, Provider: Alok Webber, Status: Pen, Time: 2:30 PM -[facility] 250 DO Work Phone: Start: 11-02-2022 HOLTER 48, Provider: VERONICA LANGLEY STARCH CR[place] 1,[id number], Status: Pen, Time: 2:30 PM HOLTER 48, Provider: VERONICA LANGLEY [place] 1,[id number], Status: Pen, Time: 2:30 PM -[facility] 250 DO Work Phone: Start: 10-13-2022 [facility] Start: 10-10-2022 Dilation of Coronary Artery, Two Arteries with Three Drug-eluting Intraluminal Devices, Percutaneous Approach Dilation of Coronary Artery, Two Arteries with Three Drug-eluting Intraluminal Devices, Percutaneous Approach [facility] Start: 10-10-2022 Fluoroscopy of Left Heart using Low Osmolar Contrast Fluoroscopy of Left Heart using Low Osmolar Contrast [facility] Start: 10-10-2022 Fluoroscopy of Multiple Coronary Arteries using Low Osmolar Contrast Fluoroscopy of Multiple Coronary Arteries using Low Osmolar Contrast [facility] Start: 10-10-2022 Measurement of Cardiac Sampling and Pressure, Left Heart, Percutaneous Approach Measurement of Cardiac Sampling and Pressure, Left Heart, Percutaneous Approach [facility] Start: 10-10-2022 Hospital admission [facility] Start: 10-10-2022 [facility] Start: 10-10-2022 Hospital admission [facility] Start: 10-10-2022 [facility] Patient Education Coronary Angio plasty (DC) Coronary Stenting (DC) Angina (DC) Chest Pain (DC) Drug Eluting Stents [facility] Work Phone: Patient referral [facility] Work Phone: Immunizations Immunization Date Immunization Notes Care Provider Fa cility 05-02-2018 pneumococcal Conjuga te, unspecified formulation; Translations: [Need for prophylactic vaccination against Streptococcus pneumoniae (pneumococcus)] Brock Modi Other [facility] [employer] Other 05-02-2018 pneumococcal polysaccharide vaccine, 23 valent Brock Modi Work Phone: [facility] 250 DO Work Phone: 05-26-2017 pneumococcal conjuga te vaccine, 13 valent Brock Modi Work Phone: [facility] 250 DO Work Phone: Payers Date Payer Category Payer Medicaid [id number] 2022 Self-pay 1960 Unknown [id number] 1960 Unknown [id number] 1960 Unknown [id number] 1960 Unknown [id number] 1960 Unknown [id number] 1960 Unknown [id number] [id number] 1960 Unknown [id number] [id number] 1960 Unknown [id number] [id number] 1960 Unknown [id number] [id number] 1960 Unknown [id number] 2..[id number] 1960 Unknown [id number] [id number] 1960 Unknown [id number] [id number] 1960 Unknown [id number] [id number] 1960 Unknown [id number] [id number] 1959 Unknown [id number] 2. [id number] Unknown [facility] Unknown [id number] Unknown [id number] [id number] Unknown [id number] Unknown [id number] Social History Date Type Detail Facility Tobacco smoking stat [facility] Unknown if ever smoked [facility] Work Phone: Start: 1960 Sex Assigned At Male [facility] Sex Assigned At Sex Assigned At Bir th [facility] Other Start: 10-10-2022 Tobacco smoking status SCIS Smoker (finding) [facility] Daily caffeine consumption Daily caffeine consumption [facility] 250 DO Work Phone: Comment on above: 1/2 gallon coffee da darrion; 5-6 cig daily; 8 cigs daily; Medical Equipment Procedure Code Equipment Code Equipment Origin al Text Equipment Identifier Dates Drug-eluting coronary artery stent, oud-vqesjrkzpvons-wv lymer-coated ()[id number] FDA Start: 10-10-2022 Drug-eluting coronary artery stent, awc-vqhkbtlmegwek-zd lymer-coated ()[id number] FDA Start: 10-10-2022 Drug-eluting coronary artery stent, zud-masopavftqhpj-wb lymer-coated ()[id number] FDA Start: 10-10-2022 Goals Date Patient Goal Desired Activity /State Functional Status Date Assessment Result Facility 10-13-2022 Functional status Patient at Baseline [facility] Work Phone: Mental Status Date Assessment Result Facility 10-13-2022 Cognitive function Cognitive Sta tus Patient at Baseline [facility] Work Phone: Clinical Notes 07-30-2022 to 06-24-2023 Note Date & Type Note Facility 06-24-2023 Evaluation note Encounter Date Diagnosis Assessment Notes May, Abdominal aortic aneurysm (AAA) without rupture, unspecified part (ICD-10 - I71.40) Pt requests order as he is overdue for recheckUS. May, Bronchitis (ICD-10 - J40) Finish meds and treatment plan ordered by ER recently. Pt understands as he is improving. [facility] Other 08-25-2023 Evaluation note* Encounter Date Diagnosis Assessment Notes Treatment Notes Treatment Clinical Notes Feb, Acute cystitis without hematuria (ICD-10 - N30.00) [facility] Other 08-22-2023 Evaluation note* Encounter Date Diagnosis Assessment Notes Treatment Notes Treatment Clinical Notes Feb, Penile discharge (ICD-10 - R36.9) Pt request STI testing Feb, Dysuria (ICD-10 - R30.0) Rule out UTI based on symptoms. Will call w results. Push fluids. Feb, Chronic obstructive pulmonary disease, unspecified (ICD-10 - J44.9) Clinical diagnosis secondary to [id number] history of tobacco abuse. He will need PFTs in the future. Discussed missed appts w Dr. Campos and sleep lab. He states he will not followup there as he doesn't want to do a lung biopsy. His resp symptoms are improved overall. He expresses understanding on the severity of his condition and he chooses not to followup. [facility] Other 07-13-2023 Evaluation note* Encounter Date Diagnosis Assessment Notes Treatment Notes Treatment Clinical Notes Jan, COPD, moderate (ICD-10 - J44.9) Reminded him to keep appt w Dr. Campos on 02/10. Continue home medications. Avoid going outside with there is haze. Jan, Other sleep disorders (ICD-10 - G47.8) Gave number for the [facility] Sleep lab. He missed his last appt as his daughter had COVID. He will call to reschedule. [facility] Other 07-07-2023 Evaluation note* Encounter Date Diagnosis Assessment Notes Treatment Notes Treatment Clinical Notes Jan, Situational anxiety (ICD-10 - F41.8) [facility] Other 05-11-2023 Evaluation note* Encounter Date Diagnosis Assessment Notes Treatment Notes Treatment Clinical Notes November, Situational anxiety (ICD-10 - F41.8) [facility] Other 05-05-2023 Evaluation note* Encounter Date Diagnosis Assessment Notes Treatment Notes Treatment Clinical Notes November, Acute pain of right knee (ICD-10 - M25.561) Hector returns with right knee pain and effusion. At this juncture we have discussed the findings and diagnosis as well as personally reviewed appropriate imaging and performed interpretation of related testing and examination with the patient in office today. At this time I would recommend repeat aspiration injection of the knee and he is agreeable. Risks and benefit of injection were discussed and verbal consent was obtained. Under sterile technique the patient's right knee was aspirated revealing approximately 10 cc of normal-appearing joint fluid and then injected via the superolateral with 4 cc of Marcaine and 1 cc of Kenalog, this was tolerated well without any adverse reaction. Band-Aid was applied to the area. We will plan for follow-up as needed. The patient has been involved in our cooperative treatment plan and agrees to move forward with treatment at this time. November, Primary osteoarthritis of right knee (ICD-10 - M17.11) Today we have discussed degenerative joint disease of the knee and its treatment. Imaging was discussed and explained to the patient. We discussed recommended conservative therapies including physical therapy, anti-inflammatory medications, and weight loss strategies. We also discussed other treatment options including cortisone injections, Visco supplementation injections which are options for treatment. I have laid out the course of knee DJD including the end-stage treatment of total joint arthroplasty. The patient recognizes and understands our options and goals and we will move forward with our treatment. T Patient was then aspirated of approximately 10 mls of normal appearing fluid under sterile conditions. We performed a marcaine / kenalog cortisone injection into the knee joint under sterile technique. Patient tolerated well without adverse reaction. Dressing was applied to knee. November, Knee effusion, right (ICD-10 - M25.461) November, Tobacco abuse (ICD-10 - Z72.0) Patient has a tobacco use disorder we have discussed this today. I have advised complete cessation. We have discussed complications caused by tobacco use including reduced bone mineral density and increased risk of musculoskeletal injuries as well as increased surgical risk of infection, physiologic changes to skin and bone healing, anesthesia complications, mental health changes that affect patient reported outcomes, and a poor prognosis with tobacco use. I have recommended that tobacco cessation be performed at least 4 weeks prior to any surgical interventions. Tobacco cessation program at [facility] has been recommended and offered as well as the national Quitline 6-480-BDGO-NOW. We have discussed pharmacologic treatment including nicotine replacement therapy which can lead to a positive nicotine test as well as nicotine free medications both of which will need to be managed by their PCP. We have provided handout for the [facility] Tobacco Cessation Program. This discussion was limited to 5 minutes. [facility] Other 04-20-2023 Evaluation note* Encounter Date Diagnosis Assessment Notes Treatment Notes Treatment Clinical Notes Oct, Chronic obstructive pulmonary disease, unspecified COPD type (ICD-10 - J44.9) Will resume inhalers as prescribed. Keep appt w Dr. Campos. Notes frequent dyspnea, agrees to a prednisone course. Oct, INOCENTE (obstructive sleep apnea) (ICD-10 - G47.33) I called [facility]. He has to meet with the sleep specialist before the test is done, even though it was already ordered. I gave him the date of the appt. I also ordered the test. Oct, Coronary artery disease involving oneida heart without angina pectoris, unspecified vessel or lesion type (ICD-10 - I25.10) Continued followup w [facility]. Continue time off work until breathing status is improved. [facility] Other 03-28-2023 Evaluation note* Encounter Date Diagnosis Assessment Notes Treatment Notes Treatment Clinical Notes Sep, Chronic obstructive pulmonary disease, unspecified COPD type (ICD-10 - J44.9) Trelegy samples and training please Sep, Atelectasis of right lung (ICD-10 - J98.11) Please obtain any previous chest CT done at [facility] in the past, and have them load onto our PACS Sep, Tobacco use disorder (ICD-10 - F17.200) Sep, Coronary artery disease involving oneida heart without angina pectoris, unspecified vessel or lesion type (ICD-10 - I25.10) [facility] Other 03-23-2023 Evaluation note* Encounter Date Diagnosis Assessment Notes Treatment Notes Treatment Clinical Notes Sep, Coronary artery disease involving oneida coronary artery of oneida heart without angina pectoris (ICD-10 - I25.10) Has followup with Cardio on 10/21Sep, Chronic obstructive pulmonary disease with acute exacerbation (ICD-10 - J44.1) Has appt w Dr. Campos on 10/20Sep, HTN (hypertension) (ICD-10 - I10) stable on present meds. Sep, INOCENTE (obstructive sleep apnea) (ICD-10 - G47.33) I called Sleep lab and left message with my number and the office number. Possibly this will be resolved with seeing Dr. Campos next Wednesday. Likely needs a titration study at the least. [facility] Other 03-21-2023 Hospital Discharge instructions Additional Instructions DISCHARGE INSTRUCTIONS FOR ANGIOPLASTY/CORONARY/PERIPHERAL/STENT IMPLANT FOR ADULT ANTICOAGULATION -Since the greatest risk of a blood clot forming with the stent occurs in the first 2-3 weeks after implantation, you will need to take anticoagulants for at least 12-18 months. ANTICOAGULATION MEDICATION Aspirin 81mg once a day, Ticagrelor (Brilinta) 90mg twice a day STATIN MEDICATION Atorvastatin (Lipitor) 80 mg Drug-Eluting Stent (ANTONIO) DO NOT discontinue Brilinta/Aspirin during the first few months regardless of what you are advised by your family doctor or pharmacist, without first calling the purchasing coordinator who implanted the stent. If you require pain relief during this time, please take only ACETAMINOPHEN (TYLENOL)- NO additional aspirin or ibuprofen. DISCHARGE ACTIVITIES ARE FOLLOWS: First week after discharge: -Take it easy at home, no strenuous activity. -Do not lift or pull objects over 10-15 pounds, including children, and groceries for four weeks. If puncture site is at wrist do NOT lift more than three pounds for three days. - May walk up stairs. -May shower. -No excessive scrubbing of the affected site (groin). -May ride in car. -May resume sexual intercourse after 1-2 weeks. -No MRI for 12 days. -May drive in 4-7 days. -If puncture site is at the wrist do not manipulate the wrist for 24 hours, and no soaking wrist for three days. Second Week: -May take a bath -May start walking 3 times a week for 15-20 minutes at a leisurely pace. You should be able to carry on a conversation comfortably without feeling winded. -No strenuous activity as in jogging, running, weight lifting, stair steppers, etc. until the purchasing coordinator approves these activities. Check with the purchasing coordinator on your first follow-up visit. CALL YOUR PHYSICIAN at [phone]: -If bleeding should occur from the catheter insertion site- apply pressure to the site then immediately call us. -Report any fever, redness, drainage, increased swelling, or firmness at the catheter insertion site. Some bruising or slight swelling may be present at the time of discharge. -Should arm or leg become cold, numb, white, or blue, contact the purchasing coordinator immediately. -IF you should experience episodes of angina, e.g. chest discomfort, heaviness, tightness, pressure burning with or without radiation to the neck, jaw, arms or back- use 1 Nitrostat tablet under your tongue every 5-10 minutes and up to three tablets. IF NO RELIEF, CALL 911 or GO TO THE NEAREST EMERGENCY ROOM. -Please notify our office if you have recurrent angina. -[Cardiac Rehab Education Provided. Participation in the Cardiopulmonary Rehabilitation program is recommended. Please call Central Scheduling at [phone] to schedule your appointment.] The attending purchasing coordinator or [facility] nurse clinician should provide you with specific instructions regarding activity, diet, medications, and further follow up for you. Follow the medication instructions provided on your discharge. If the dosages and instructions on this sheet differ from the dosage and instructions on the bottle, follow the instructions on the bottle. [facility] is not responsible for incorrect prescription information provided by the patient during their visit. Do not stop your medications without consulting your health care provider. Please take the list with you to your next doctor's appointment.[facility] Work Phone: [phone]) 723-126703-21-2023 Progress note Author Rubén Tatum [facility] October 13, 2022 9:02am Note Date/Time October 13, 2022 9:[address] [facility] [address] [place] [address] Cardiology Progress Note Signed Patient: Hector Gaspar MR#: [id number] : 1960 Acct:[id number] Age/Sex: 62 / M Adm Date: 3 Loc: Room: [address] [place] [address] Type: ADM IN Attending Dr: Barbara Rivero MD Copies to: ~ Date of Service: 10/13/2022 Subjective Principal diagnosis: Non-STEMI status post two-vessel PCI Interval history: Hector is doing well this morning clinically. He denies any chest pain chest pressure or other anginal symptoms. Right radial access site is well-healed. He was up and active ambulating in the halls yesterday without symptoms or any other difficulty. Telemetry monitoring showed no further episodes of bradycardia other bradycardiaarrhythmia or heart block over the last 24 hours. Hector feels well in a normal state of health this morning and desires to be discharged home Exam Physical Exam Vital Signs: Temp Pulse Resp BP Pulse Ox O2 Del Method O2 Flow Rate 97.7 F 98 H 20 142/82 H 98 Nasal Cannula 2 10/13/22 08:03 10/13/22 08:03 10/13/22 08:03 10/13/22 08:03 10/13/22 08:03 10/13/22 08:03 10/13/22 08:03 Const General: cooperative, healthy appearing, comfortable and no acute distress Nutritional Appearance: overweight Orientation: alert, awake and oriented x3 HEENT Head: normocephalic and atraumatic Face and sinus: face symmetric Mouth: moist mucous membranes Teeth and gingiva: poor dentition Eyes Conjunctivae: conjunctivae normal Sclera: sclerae normal EOM: EOM intact bilaterally Direct ophthalmoscopy: no photophobia Neck Neck: no lymphadenopathy and supple Thyroid: thyroid normal Carotids: normal carotid upstroke Lymphatic: no lymphadenopathy noted Chest Chest palpation & inspection: normal inspection of the chest and normal palpation of entire chest wall Resp Effort & Inspection: normal respiratory effort, able to speak in complete sentences and symmetric chest movement Auscultation: clear to auscultation bilaterally Cardio Jugular venous pressure: no JVD Palpation: normal PMI Rate: regular rate Rhythm: regular rhythm Heart Sounds: S1 normal, S2 normal and gallop S4 gallop GI Inspection: normal to inspection Palpation: soft and no hepatosplenomegaly Skin General: no rashes or lesions noted Trauma: no lacerations or abrasions Wounds: no wounds Neuro General: patient alert, patient awake, patient oriented x3, moves all extremities and no focal motor deficits Cranial Nerves: CN's II-XII intact bilaterally Cognition: normal cognition Speech: speech normal Motor: muscle tone normal throughout Sensory Exam: no sensory deficits noted Extrem General: no clubbing, cyanosis or edema Psych Appearance: grossly normal Mental Status: mental status grossly normal Mood: congruent mood Affect: normal affect Speech and Movement: speech and movement normal Attitude: cooperative Thought Process: normal Thought Content: normal Insight: fair Judgment: fair Objective Labs 10/11/22 05:11 10/12/22 04:40 A&P - Cardiology (1) NSTEMI (non-ST elevated myocardial infarction): Assessment/Problem Details: Patient doing well without any evidence of further bradycardia arrhythmia or heart block. Safe and ready for discharge to home today Code(s): I21.4 - Non-ST elevation (NSTEMI) myocardial infarction Status: Acute Plan: 1. Maintain dual antiplatelet therapy with aspirin 81 mg daily and ticagrelor 90 mg twice daily 2. Spironolactone 25 mg p.o. every morning 3. Valsartan 160 mg nightly 4. No beta-maryjane secondary to intermittent complete heart block while on postNSTEMI/PCI metoprolol tartrate. 5. Follow-up in [facility] within 10 days. From there strongly recommend referral to phase 2 monitored cardiac rehabilitation to which the patient is agreeable. (2) Heart block AV complete: Assessment/Problem Details: None further since withholding metoprolol tartrate. Code(s): I44.2 - Atrioventricular block, complete Status: Acute Plan: No indication/plan for permanent pacemaker at this point. No further beta- maryjane. Plan for discharge to home as above. (3) Sleep apnea in adult: Code(s): G47.30 - Sleep apnea, unspecified Status: Acute Plan: Plan for full sleep study in the outpatient setting following discharge Plan Discharge to home today. Outpatient follow-up within 10 days. Referral to phase 2 monitored cardiac rehabilitation. Time spent with patient Time Spent With Patient (min): 30 Documented By: Rubén Tatum MD 10/13/22 0854 Signed By: <Electronically signed by Rubén Tatum MD> 10/13/22 0902 [facility] Work Phone: 1(767) 683-814903-20-2023 Progress note Author Barbara Rivero [facility] October 12, 2022 2:24pm Note Date/Time October 12, 2022 2:[address] [facility] [address] [place] [address] Hospitalist Progress Note Signed Patient: Hector Gaspar MR#: [id number] : 1960 Acct:[id number] Age/Sex: 62 / M Adm Date: 3 Loc: Room: [address] [place] [address] Type: ADM IN Attending Dr: Barbara Rivero MD Copies to: ~ Date of Service: 10/12/2022 Subjective Subjective Narrative: Patient examined at bedside and denies any complaint of chest pain or shortness of breath. He has been walking hallway without any difficulty. Last night noted to have significant pause measuring 6.9 second. Patient was awake at thattime and asymptomatic with pulse ox of 98%. Case discussed with Dr. James who is concerned about his episodes of heart block at night and since hypoxia was ruledout as well. Patient is agreeing to stay overnight to assess the need for pacemaker placement. Patient is complaining of bland diet and has not eaten much for last few days. Exam Physical Exam Vital Signs: Temp Pulse Resp BP Pulse Ox O2 Del Method O2 Flow Rate 97.4 F L 76 16 164/89 H 99 Nasal Cannula 2 10/12/22 11:38 10/12/22 12:06 10/12/22 12:06 10/12/22 11:38 10/12/22 11:38 10/12/22 11:38 10/12/22 11:38 Const Orientation: alert, awake and oriented x3 Resp Effort & Inspection: normal respiratory effort and able to speak in complete sentences Auscultation: no rales, no rhonchi and no wheezes Cardio Rate: regular rate Rhythm: regular rhythm Heart Sounds: S1 normal and S2 normal GI Palpation: soft, not firm, no guarding and nontender Neuro General: patient alert, patient awake, patient oriented x3, moves all extremities and no focal motor deficits Cranial Nerves: CN's II-XII intact bilaterally Cognition: normal cognition Speech: speech normal Motor: muscle tone normal throughout and strength 5/5 throughout Sensory Exam: no sensory deficits noted Extrem General: no clubbing, cyanosis or edema and no calf tenderness Objective Lab Results 10/11/22 05:11 10/12/22 04:40 Meds Allergies and Active Meds Allergies Penicillins Adverse Reaction (Verified 10/10/22 05:08) Gastrointestinal Upset pneumococcal vaccine Adverse Reaction (Verified 10/10/22 05:08) Redness of Skin Active Meds: Active Medications Generic Name Dose Route Start Last Admin Trade Name Freq PRN Reason Stop Dose Admin Acetaminophen 650 mg 10/10/22 05:41 10/12/22 09:44 Acetaminophen 325 Mg Tablet PO 10/10/23 05:40 650 mg Q6HR PRN Administration Pain Scale 1 - 3 or fever Albuterol 2.5 mg 10/10/22 16:55 10/12/22 00:32 Albuterol Neb 2.5 Mg/3 Ml Vial.Neb INHALATION 10/10/23 16:54 2.5 mg Q4H PRN Administration Shortness Of Breath Albuterol/Ipratropium 3 ml 10/11/22 12:00 10/12/22 12:06 Ipratropium/Albuterol 0.5-3 Mg 3 Ml Ampul.Neb INHALATION 10/11/23 11:59 3 ml QID.RESP AWA Administration Aspirin 81 mg 10/11/22 09:00 10/12/22 08:37 Aspirin 81 Mg Tab.Chew PO 10/11/23 08:59 81 mg DAILY AWA Administration Atropine Sulfate 1 mg 10/10/22 12:17 Atropine Sulfate 1 Mg/10 Ml Syringe IV-PUSH ONCE PRN Symptomatic Bradycardia Diphenhydramine HCl 25 mg 10/10/22 05:41 Diphenhydramine 25 Mg Capsule PO 10/10/23 05:40 Q8H PRN Severe rash or Itching Docusate Sodium 100 mg 10/10/22 09:00 10/12/22 08:37 Docusate 100 Mg Capsule PO 10/10/23 08:59 100 mg BID AWA Administration Enoxaparin Sodium 40 mg 10/12/22 10:00 10/12/22 09:29 Enoxaparin 40 Mg/0.4 Ml Syringe SUBCUT 10/12/23 09:59 Not Given DAILY@1000 [facility] Fentanyl Citrate 25 mcg 10/10/22 12:23 Fentanyl/Pf 100 Mcg/2 Ml Vial IV-PUSH Q2H PRN Pain Fluticasone Propionate 1 puff 10/10/22 09:00 10/12/22 07:52 Fluticasone Propionate 110 120 Puff/12 Gm Inhaler INHALATION 10/10/23 08:59 1 puff BID AWA Administration Hydralazine HCl 10 mg 10/10/22 05:41 Hydralazine 20 Mg/Ml Vial IV-PUSH 10/10/23 05:40 Q4H PRN Hypertension Magnesium Sulfate 2 gm in 50 mls @ 25 mls/hr 10/10/22 05:41 Magnesium Sulf 2gm-*Swfi* IV 10/10/23 05:40 DAILY PRN Magnesium Level < 1.5 Sodium Chloride 250 mls @ 999 mls/hr 10/10/22 12:17 0.9% Sodium Chloride 250 Ml IV 10/10/23 12:16 PRN PRN Hypotension Losartan Potassium 100 mg 10/10/22 09:00 10/12/22 08:37 Losartan 50 Mg Tablet PO 10/10/23 08:59 100 mg DAILY AWA Administration Metoprolol Tartrate 25 mg 10/10/22 21:00 10/11/22 09:18 Metoprolol Tartrate 25 Mg Tablet PO 10/10/23 20:59 25 mg BID AWA Administration Morphine Sulfate 2 mg 10/10/22 05:41 10/10/22 21:51 Morphine Sulfate 2 Mg/Ml Vial IV-PUSH 2 mg Q4H PRN Administration Pain Scale 8 - 10 Ondansetron HCl 4 mg 10/10/22 05:41 Ondansetron 4 Mg/2 Ml Vial IV-PUSH 10/10/23 05:40 Q8H PRN Nausea And Vomiting Potassium Chloride 40 meq 10/10/22 05:41 Potassium Chloride Er 20 Meq Tab.Er.Prt PO 10/10/23 05:40 DAILY PRN Hypokalemia Potassium Chloride 40 meq 10/10/22 09:46 Potassium Chloride Er 20 Meq Tab.Er.Prt PO STAT PRN Hypokalemia Sodium Chloride 0 ml 10/10/22 09:46 Sodium Chloride 0.9 % 10 Ml Syringe IV-PUSH 10/10/23 09:45 PRN PRN Flush Ticagrelor 90 mg 10/10/22 21:00 10/12/22 08:37 Ticagrelor 90 Mg Tablet PO 10/10/23 20:59 90 mg BID AWA Administration Tramadol HCl 50 mg 10/11/22 09:27 10/12/22 12:56 Tramadol 50 Mg Tablet PO 04/09/23 09:26 50 mg Q6H PRN Administration Pain Valsartan 80 mg 10/10/22 12:25 10/12/22 08:37 Valsartan 80 Mg Tablet PO 10/10/23 12:24 80 mg BID AWA Administration Zolpidem Tartrate 5 mg 10/10/22 05:41 Zolpidem 5 Mg Tablet PO 04/08/23 05:40 HS PRN Sleep A&P - Hospitalist Assessment/Plan (1) NSTEMI (non-ST elevated myocardial infarction): Plan: Patient underwent cardiac catheterization on 10/10 and found to have two-vessel disease for which he underwent stents placement to RCA and proximal PDA without complication. Continue aspirin, Brilinta and statin. He denies chest pain or shortness of breath. Has been ambulating without difficulty (2) Tobacco abuse: Plan: Counseled extensively regarding smoking cessation. He does not want to use nicotine patch at this time. (3) Ventricular tachycardia seen on residential monitor: Plan: No further episodes of ventricular tachycardia. (4) Heart block AV complete: Plan: Patient had another episode of 6.9-second pause last night although he remained asymptomatic. Beta-maryjane has been placed on hold. Due to monitor overnight to assess the need for pacemaker if he continues to have pauses off beta-maryjane. (5) Hypertension: Plan: His blood pressure has been staying on the higher side. We will add thiazide diuretic for better blood pressure control. Add IV hydralazine as needed for accelerated hypertension. (6) COPD (chronic obstructive pulmonary disease): Plan: No signs of COPD exacerbation. During my evaluation he was saturating 99% on room air. Patient has been ambulating without requiring oxygen. Chest x-ray was negative for acute abnormality as well other than linear scarring or atelectasis in the right lower chest. Continue DuoNeb. (7) Hypoxemia: Plan: Improved he will require walk study prior to discharge. Plan Patient requires hospital stay given his recurrent pauses to assess the need forpacemaker placement. Documented By: Barbara Rivero MD 10/12/22 1400 Signed By: <Electronically signed by Barbara Rivero MD> 10/12/22 1302 [facility] Work Phone: 1(885) 229-506103-20-2023 Progress note Author Rubén Tatum [facility] October 12, 2022 10:00am Note Date/Time October 12, 2022 9:[address] [facility] [address] [place] [address] Cardiology Progress Note Signed Patient: Hector Gaspar SR MR#: [id number] : 1960 Acct:[id number] Age/Sex: 62 / M Adm Date: 3 Loc: 4 Room: [address] [place] [address] Type: ADM IN Attending Dr: Barbara Rivero MD Copies to: ~ Date of Service: 10/12/2022 Subjective Principal diagnosis: Non-STEMI status post two-vessel PCI Interval history: Hector is doing well this morning clinically. He denies any chest pain chest pressure or other anginal symptoms. Right radial access site is well-healed. He was up and active ambulating in the halls yesterday without symptoms or any other difficulty. Overnight Hector again had an episode of complete heart block that was asymptomatic and lasted 6.9 seconds. This happened at . At the time the patient was awake. His oxygen saturation at the time was 98%. We did perform overnight oximetry studies which showed a kailey oxygen saturation of 86% but again when the episode of heart block And the patient was awake and satting 98%. There was another short episode of intermittent second-degree heart block againat this morning. This lasted only 3 seconds and was also asymptomatic. Hector's breathing is comfortable. He did dilate recent approximately a liter yesterday. Serum BNP is down from 1 57-92 which is now within normal limits. Exam Physical Exam Vital Signs: Temp Pulse Resp BP Pulse Ox O2 Del Method O2 Flow Rate 98.2 F 88 18 143/80 H 95 Room Air 2 10/12/22 08:00 10/12/22 08:00 10/12/22 08:00 10/12/22 08:00 10/12/22 08:00 10/12/22 08:00 10/11/22 16:00 Const General: cooperative, healthy appearing, comfortable and no acute distress Nutritional Appearance: overweight Orientation: alert, awake and oriented x3 HEENT Head: normocephalic and atraumatic Face and sinus: face symmetric Mouth: moist mucous membranes Teeth and gingiva: poor dentition Eyes Conjunctivae: conjunctivae normal Sclera: sclerae normal EOM: EOM intact bilaterally Direct ophthalmoscopy: no photophobia Neck Neck: no lymphadenopathy and supple Thyroid: thyroid normal Carotids: normal carotid upstroke Lymphatic: no lymphadenopathy noted Chest Chest palpation & inspection: normal inspection of the chest and normal palpation of entire chest wall Resp Effort & Inspection: normal respiratory effort, able to speak in complete sentences and symmetric chest movement Auscultation: clear to auscultation bilaterally Cardio Jugular venous pressure: no JVD Palpation: normal PMI Rate: regular rate Rhythm: regular rhythm Heart Sounds: S1 normal, S2 normal and gallop S4 gallop GI Inspection: normal to inspection Palpation: soft and no hepatosplenomegaly Skin General: no rashes or lesions noted Trauma: no lacerations or abrasions Wounds: no wounds Neuro General: patient alert, patient awake, patient oriented x3, moves all extremities and no focal motor deficits Cranial Nerves: CN's II-XII intact bilaterally Cognition: normal cognition Speech: speech normal Motor: muscle tone normal throughout Sensory Exam: no sensory deficits noted Extrem General: no clubbing, cyanosis or edema Psych Appearance: grossly normal Mental Status: mental status grossly normal Mood: congruent mood Affect: normal affect Speech and Movement: speech and movement normal Attitude: cooperative Thought Process: normal Thought Content: normal Insight: fair Judgment: fair Objective Labs 10/11/22 05:11 10/12/22 04:40 Labs: Laboratory Results - last 24 hr 10/11/22 10/12/22 10/12/22 05:11 04:40 04:40 PHA Creatinine Clear 79.69 Sodium 140 Potassium 4.2 Chloride 107 Carbon Dioxide 25.2 Anion Gap 12.0 BUN 23 Creatinine 1.09 Est GFR (CKD-EPI) > 60.0 Glucose 100 Estimat Average Glucose 120 Hemoglobin A1c 5.8 H Calcium 9.0 Magnesium 2.2 B-Natriuretic Peptide 91.0 A&P - Cardiology (1) NSTEMI (non-ST elevated myocardial infarction): Code(s): I21.4 - Non-ST elevation (NSTEMI) myocardial infarction Status: Acute Plan: 1. Maintain dual antiplatelet therapy with aspirin 81 mg daily and ticagrelor 90 mg twice daily 2. Maintain medical therapy with ARB and statin therapy we will hold beta- maryjane given significant heart block overnight 3. Ambulate at least 3 times daily today. 4. No further diuresis. 5. 24-hour observation on telemetry monitoring watching for evidence of recurrent complete heart block, now off beta-blockers x48 hours. (2) Heart block AV complete: Code(s): I44.2 - Atrioventricular block, complete Status: Acute Plan: I like to keep Hector on telemetry monitoring for another day to see if there is any further evidence of heart block off of his beta-maryjane x48 hours and further out from his two-vessel revascularization, both vessels of which are likely contributing significant blood supply to the patient's AV node. If thereis further heart block particularly with lack of ventricular conduction greater than 4 seconds now 48 hours off of beta-blockade we will need to recommend inpatient transfer for implantation of permanent pacing device. (3) Ventricular tachycardia seen on residential monitor: Assessment/Problem Details: Stable no further wide-complex tachycardia seen in the last 24 hours. Code(s): I47.20 - Ventricular tachycardia, unspecified Status: Acute Plan: No indication for LifeVest presently. (4) Sleep apnea in adult: Assessment/Problem Details: Kailey SaO2 86%. No apnea noted at the time of complete heart block episode. Code(s): G47.30 - Sleep apnea, unspecified Status: Acute Plan: Plan for full sleep study in the outpatient setting following discharge Plan Plan as above. If favorable clinical evolution, which would include no further episodes of complete heart block now off of beta-blockade x48 hours, anticipate discharge to home tomorrow. Otherwise if there is further complete heart block noted on telemetry monitoring we will plan for transfer for implantation of permanent pacemaker. Time spent with patient Time Spent With Patient (min): 30 Documented By: Rubén Tatum MD 10/12/22 0955 Signed By: <Electronically signed by Rubén Tatum MD> 10/12/22 1000 [facility] Work Phone: 1(641) 214-414403-19-2023 Progress note Author Barbara Rivero [facility] October 11, 2022 11:24am Note Date/Time October 11, 2022 11: 15am [facility] [address] [place] [address] Hospitalist Progress Note Signed Patient: Hector Gaspar MR#: [id number] : 1960 Acct:[id number] Age/Sex: 62 / M Adm Date: 3 Loc: Room: [address] [place] [address] Type: ADM IN Attending Dr: Barbara Rivero MD Copies to: ~ Date of Service: 10/11/2022 Subjective Subjective Narrative: Patient examined at bedside and currently appears comfortable and was on 3 L oxygen. Patient mentioned having history of COPD and it appears he had PFT donepreviously. He was on Symbicort at one time but stopped using it. Last night he had a 14 beat run of wide-complex tachycardia and also noted to have 2 episodes of complete heart block as per the cardiology note. Beta-maryjane has been placed on hold. Patient was sleeping during those episodes and remained hemodynamically stable. Exam Physical Exam Vital Signs: Temp Pulse Resp BP Pulse Ox O2 Del Method O2 Flow Rate 98.2 F 70 16 155/90 H 97 Room Air 2 10/11/22 08:00 10/11/22 08:00 10/11/22 08:00 10/11/22 08:00 10/11/22 08:00 10/11/22 08:00 10/11/22 08:00 Const Orientation: alert, awake and oriented x3 Resp Effort & Inspection: normal respiratory effort and able to speak in complete sentences Auscultation: no rales, no rhonchi and no wheezes Cardio Rate: regular rate Rhythm: regular rhythm Heart Sounds: S1 normal and S2 normal GI Palpation: soft, not firm, no guarding and nontender Neuro General: patient alert, patient awake, patient oriented x3, moves all extremities and no focal motor deficits Extrem General: no clubbing, cyanosis or edema and no calf tenderness Objective Lab Results 10/11/22 05:11 10/11/22 05:11 Meds Allergies and Active Meds Allergies Penicillins Adverse Reaction (Verified 10/10/22 05:08) Gastrointestinal Upset pneumococcal vaccine Adverse Reaction (Verified 10/10/22 05:08) Redness of Skin Active Meds: Active Medications Generic Name Dose Route Start Last Admin Trade Name Freq PRN Reason Stop Dose Admin Acetaminophen 650 mg 10/10/22 05:41 10/10/22 18:38 Acetaminophen 325 Mg Tablet PO 10/10/23 05:40 650 mg Q6HR PRN Administration Pain Scale 1 - 3 or fever Albuterol 2.5 mg 10/10/22 16:55 Albuterol Neb 2.5 Mg/3 Ml Vial.Neb INHALATION 10/10/23 16:54 Q4H PRN Shortness Of Breath Aspirin 81 mg 10/11/22 09:00 10/11/22 09:18 Aspirin 81 Mg Tab.Chew PO 10/11/23 08:59 81 mg DAILY AWA Administration Atropine Sulfate 1 mg 10/10/22 12:17 Atropine Sulfate 1 Mg/10 Ml Syringe IV-PUSH ONCE PRN Symptomatic Bradycardia Diphenhydramine HCl 25 mg 10/10/22 05:41 Diphenhydramine 25 Mg Capsule PO 10/10/23 05:40 Q8H PRN Severe rash or Itching Docusate Sodium 100 mg 10/10/22 09:00 10/11/22 09:17 Docusate 100 Mg Capsule PO 10/10/23 08:59 100 mg BID AWA Administration Fentanyl Citrate 25 mcg 10/10/22 12:23 Fentanyl/Pf 100 Mcg/2 Ml Vial IV-PUSH Q2H PRN Pain Fluticasone Propionate 1 puff 10/10/22 09:00 10/11/22 08:34 Fluticasone Propionate 110 120 Puff/12 Gm Inhaler INHALATION 10/10/23 08:59 1 puff BID AWA Administration Hydralazine HCl 10 mg 10/10/22 05:41 Hydralazine 20 Mg/Ml Vial IV-PUSH 10/10/23 05:40 Q4H PRN Hypertension Magnesium Sulfate 2 gm in 50 mls @ 25 mls/hr 10/10/22 05:41 Magnesium Sulf 2gm-*Swfi* IV 10/10/23 05:40 DAILY PRN Magnesium Level < 1.5 Sodium Chloride 250 mls @ 999 mls/hr 10/10/22 12:17 0.9% Sodium Chloride 250 Ml IV 10/10/23 12:16 PRN PRN Hypotension Magnesium Sulfate 2 gm in 50 mls @ 25 mls/hr 10/11/22 09:30 10/11/22 10:20 Magnesium Sulf 2gm-*Swfi* IV 10/11/22 11:29 25 mls/hr ONCE ONE Administration Labetalol HCl 5 mg 10/10/22 05:41 Labetalol 100 Mg/20 Ml Vial IV-PUSH 10/10/23 05:40 Q4H PRN Hypertension Losartan Potassium 100 mg 10/10/22 09:00 10/11/22 09:16 Losartan 50 Mg Tablet PO 10/10/23 08:59 100 mg DAILY AWA Administration Metoprolol Tartrate 25 mg 10/10/22 21:00 10/11/22 09:18 Metoprolol Tartrate 25 Mg Tablet PO 10/10/23 20:59 25 mg BID AWA Administration Morphine Sulfate 2 mg 10/10/22 05:41 10/10/22 21:51 Morphine Sulfate 2 Mg/Ml Vial IV-PUSH 2 mg Q4H PRN Administration Pain Scale 8 - 10 Ondansetron HCl 4 mg 10/10/22 05:41 Ondansetron 4 Mg/2 Ml Vial IV-PUSH 10/10/23 05:40 Q8H PRN Nausea And Vomiting Pantoprazole Sodium 40 mg 10/10/22 09:00 10/11/22 09:18 Pantoprazole 40 Mg Tablet.Dr PO 10/10/23 08:59 40 mg DAILY AWA Administration Potassium Chloride 40 meq 10/10/22 05:41 Potassium Chloride Er 20 Meq Tab.Er.Prt PO 10/10/23 05:40 DAILY PRN Hypokalemia Potassium Chloride 40 meq 10/10/22 09:46 Potassium Chloride Er 20 Meq Tab.Er.Prt PO STAT PRN Hypokalemia Potassium Chloride 40 meq 10/11/22 14:00 Potassium Chloride Er 20 Meq Tab.Er.Prt PO 10/12/22 09:01 TID AWA Sodium Chloride 0 ml 10/10/22 09:46 Sodium Chloride 0.9 % 10 Ml Syringe IV-PUSH 10/10/23 09:45 PRN PRN Flush Ticagrelor 90 mg 10/10/22 21:00 10/11/22 09:18 Ticagrelor 90 Mg Tablet PO 10/10/23 20:59 90 mg BID AWA Administration Tramadol HCl 50 mg 10/11/22 09:27 Tramadol 50 Mg Tablet PO 04/09/23 09:26 Q6H PRN Pain Valsartan 80 mg 10/10/22 12:25 10/11/22 09:17 Valsartan 80 Mg Tablet PO 10/10/23 12:24 80 mg BID AWA Administration Zolpidem Tartrate 5 mg 10/10/22 05:41 Zolpidem 5 Mg Tablet PO 04/08/23 05:40 HS PRN Sleep A&P - Hospitalist Assessment/Plan (1) NSTEMI (non-ST elevated myocardial infarction): Plan: Patient underwent cardiac catheterization on 10/10 and found to have two-vessel disease for which he underwent stents placement to RCA and proximal PDA without complication. Patient denies having chest pain. Continue aspirin, Brilinta andstatin. Beta-maryjane on hold due to heart block last night. (2) Tobacco abuse: Plan: Counseled extensively regarding smoking cessation. (3) Ventricular tachycardia seen on residential monitor: Plan: Patient given potassium and magnesium supplement. Continue to monitor. He might require LifeVest if have further arrhythmia. (4) Heart block AV complete: Plan: Beta-maryjane has been placed on hold. Continue to monitor. (5) Hypertension: Plan: Blood pressure mostly well controlled. Continue losartan and as needed hydralazine for accelerated hypertension. (6) COPD (chronic obstructive pulmonary disease): Plan: Patient mentioned having history of COPD and has been on Symbicort in the past. He does not like to use Symbicort and currently using albuterol nebulizer at home. On examination no signs of COPD exacerbation. He will be started on DuoNeb. (7) Hypoxemia: Plan: Patient might require oxygen on discharge and will be evaluated for that given history of COPD. Plan Given episode of wide-complex tachycardia with heart block patient will be kept in the hospital for overnight monitoring. Documented By: Barbara Rivero MD 10/11/22 1110 Signed By: <Electronically signed by Barbara Rivero MD> 10/11/22 1126 [facility] Work Phone: [phone] 278-231503-19-2023 Progress note Author Rubén Tatum [facility] October 11, 2022 9:41am Note Date/Time October 11, 2022 9:[address] [facility] [address] [place] [address] Cardiology Progress Note Signed Patient: Hector Gaspar SR MR#: [id number] : 1960 Acct:[id number] Age/Sex: 62 / M Adm Date: 3 Loc: Room: [address] [place] [address] Type: ADM IN Attending Dr: Barbara Rivero MD Copies to: ~ Date of Service: 10/11/2022 Subjective Principal diagnosis: Non-STEMI status post two-vessel PCI Interval history: Hector is doing well this morning clinically. He denies any chest pain chest pressure or other anginal symptoms. He did have some issues with arrhythmia overnight: He had 1 episode of an irregular wide-complex tachycardia of 14 beats. He was asymptomatic with this. He also had 2 significant episodes of complete heart block the longest of which was approximately 5 seconds. Hector wasasleep at the time and asymptomatic and there were no adverse hemodynamic sequelae. Bedside ECG this morning looks good. No acute ischemic changes. Persistent Q waves noted in the inferolateral leads. No problems at right radial access site Exam Physical Exam Vital Signs: Temp Pulse Resp BP Pulse Ox O2 Del Method O2 Flow Rate 98.2 F 70 16 155/90 H 97 Room Air 2 10/11/22 08:00 10/11/22 08:00 10/11/22 08:00 10/11/22 08:00 10/11/22 08:00 10/11/22 08:00 10/11/22 08:00 Const General: cooperative, healthy appearing, comfortable and no acute distress Nutritional Appearance: overweight Orientation: alert, awake and oriented x3 HEENT Head: normocephalic and atraumatic Face and sinus: face symmetric Mouth: moist mucous membranes Teeth and gingiva: poor dentition Eyes Conjunctivae: conjunctivae normal Sclera: sclerae normal EOM: EOM intact bilaterally Direct ophthalmoscopy: no photophobia Neck Neck: no lymphadenopathy and supple Thyroid: thyroid normal Carotids: normal carotid upstroke Lymphatic: no lymphadenopathy noted Chest Chest palpation & inspection: normal inspection of the chest and normal palpation of entire chest wall Resp Effort & Inspection: normal respiratory effort, able to speak in complete sentences and symmetric chest movement Auscultation: clear to auscultation bilaterally Cardio Jugular venous pressure: no JVD Palpation: normal PMI Rate: regular rate Rhythm: regular rhythm Heart Sounds: S1 normal, S2 normal and gallop S4 gallop GI Inspection: normal to inspection Palpation: soft and no hepatosplenomegaly Skin General: no rashes or lesions noted Trauma: no lacerations or abrasions Wounds: no wounds Neuro General: patient alert, patient awake, patient oriented x3, moves all extremities and no focal motor deficits Cranial Nerves: CN's II-XII intact bilaterally Cognition: normal cognition Speech: speech normal Motor: muscle tone normal throughout Sensory Exam: no sensory deficits noted Extrem General: no clubbing, cyanosis or edema Psych Appearance: grossly normal Mental Status: mental status grossly normal Mood: congruent mood Affect: normal affect Speech and Movement: speech and movement normal Attitude: cooperative Thought Process: normal Thought Content: normal Insight: fair Judgment: fair Objective Labs 10/11/22 05:11 10/11/22 05:11 Labs: Laboratory Results - last 24 hr 10/10/22 10/11/2210/11/23 06:10 05:11 05:11 Corrected WBC 6.6 Uncorrected WBC Count 6.6 RBC 4.21 Hgb 12.7 L Hct 37.7 L MCV 89.4 MCH 30.1 MCHC 33.7 RDW 14.9 H Plt Count 203 MPV 7.3 Neut % (Auto) 63.8 Lymph % (Auto) 21.8 Evans % (Auto) 10.2 Eos % (Auto) 3.7 Baso % (Auto) 0.5 Nucleat RBC Rel Count 0.1 Neut # (Auto) 4.2 Lymph # (Auto) 1.4 Evans # (Auto) 0.7 Eos # (Auto) 0.2 Baso # (Auto) 0.0 PT 11.3 INR 1.0 PHA Creatinine Clear Sodium Potassium Chloride Carbon Dioxide Anion Gap BUN Creatinine Est GFR (CKD-EPI) Glucose Estimat Average Glucose 117 Hemoglobin A1c 5.7 H Calcium Magnesium Total Bilirubin AST ALT Alkaline Phosphatase Troponin I High Sens B-Natriuretic Peptide Total Protein Albumin Globulin Albumin/Globulin Ratio Triglycerides Cholesterol LDL Cholesterol, Calc VLDL Cholesterol HDL Cholesterol Cholesterol/HDL Ratio 10/11/22 10/11/22 10/11/22 05:11 05:11 05:11 Corrected WBC Uncorrected WBC Count RBC Hgb Hct MCV MCH MCHC RDW Plt Count MPV Neut % (Auto) Lymph % (Auto) Evans % (Auto) Eos % (Auto) Baso % (Auto) Nucleat RBC Rel Count Neut # (Auto) Lymph # (Auto) Evans # (Auto) Eos # (Auto) Baso # (Auto) PT INR PHA Creatinine Clear 86.86 Sodium 139 Potassium 4.0 Chloride 109 H Carbon Dioxide 23.7 Anion Gap 10.3 BUN 17 Creatinine 1.00 Est GFR (CKD-EPI) > 60.0 Glucose 96 Estimat Average Glucose Hemoglobin A1c Calcium 8.9 Magnesium 2.0 Total Bilirubin 0.4 AST 30 ALT 18 Alkaline Phosphatase 46 Troponin I High Sens 3965.8 H* B-Natriuretic Peptide 157.0 H Total Protein 6.4 Albumin 3.9 Globulin 2.5 Albumin/Globulin Ratio 1.6 Triglycerides 152 H Cholesterol 221 H LDL Cholesterol, Calc 149 H VLDL Cholesterol 30 HDL Cholesterol 42 Cholesterol/HDL Ratio 5.3 A&P - Cardiology (1) NSTEMI (non-ST elevated myocardial infarction): Assessment/Problem Details: Now doing well status post two-vessel PCI with drug-eluting stent placement to the codominant right coronary artery and codominant L PDA. Code(s): I21.4 - Non-ST elevation (NSTEMI) myocardial infarction Status: Acute Plan: 1. Maintain dual antiplatelet therapy with aspirin 81 mg daily and ticagrelor 90 mg twice daily 2. Maintain medical therapy with ARB and statin therapy we will hold beta- maryjane given significant heart block overnight 3. Ambulate at least 3 times daily today. 4. Diurese gently today given elevated serum BNP with Lasix 40 mg IV x1 and Nitropaste 1 inch to the chest wall change every 12 hours 5. Given nocturnal arrhythmias will replete serum electrolytes magnesium sulfate 2 g IV x1 and potassium chloride 40 mill equivalents p.o. 3 times daily x3 doses (2) Heart block AV complete: Assessment/Problem Details: Transient while asleep. Asymptomatic. Nonhemodynamically significant. May be related to reperfusion but also may be pre-existing and related to patient's undiagnosed sleep apnea Code(s): I44.2 - Atrioventricular block, complete Status: Acute Plan: I like to keep Hector on telemetry monitoring for another day to see if there is any further evidence of heart block off of his beta-maryjane and further out fromhis two-vessel revascularization, both vessels of which are likely contributing significant blood supply to the patient's AV node (3) Ventricular tachycardia seen on residential monitor: Assessment/Problem Details: Not entirely certain that this represented VT as the rhythm was irregular. However in the post non-STEMI setting this is concerning. Code(s): I47.20 - Ventricular tachycardia, unspecified Status: Acute Plan: We will keep Hector for 1 more day on telemetry monitoring. There is any further evidence of wide-complex tachycardia we may need to consider discharge to home on a LifeVest particularly if he cannot tolerate beta-blockers given the episodes of complete heart block we saw last night (4) Sleep apnea in adult: Assessment/Problem Details: Hector very likely has undiagnosed significant sleep apnea/hypoxia which is likelycontributing to his nocturnal arrhythmias. Code(s): G47.30 - Sleep apnea, unspecified Status: Acute Plan: We will evaluate as much as possible while in-house with overnight oximetry. Plan Plan as above. If favorable clinical evolution anticipate discharge to home tomorrow. Again if further ventricular tach arrhythmias are noted on telemetry monitoring will need to consider fitting for LifeVest prior to discharge Time spent with patient Time Spent With Patient (min): 30 Documented By: Rubén Tatum MD 10/11/2231 Signed By: <Electronically signed by Rubén Tatum MD> 10/11/22 0941 [facility] Work Phone: [phone]) 739-143703-18-2023 Progress note Author Barbara Rivero [facility] October 10, 2022 1:33pm Note Date/Time October 10, 2022 1:[address] [facility] [address] [place] [address] Event Note Signed Patient: Hector Gaspar SR MR#: [id number] : 1960 Acct:[id number] Age/Sex: 62 / M Adm Date: 3 Loc: Room: [address] [place] [address] Type: ADM IN Attending Dr: Barbara Rivero MD Copies to: MD Barbara Barry MD~ Status Event Note Event Note DATE OF EVENT: 10/10/22 TIME OF EVENT: 13:30 EVENT DETAILS: Patient was admitted after midnight please refer to H&P for detail regarding hispresentation. He was transferred from outside facility for non-STEMI. Taken toCath Lab by cardiology and found to have significant two-vessel disease with successful PCI to RCA and PDA. EF was 45%. Patient examined after cardiac cath with family member present in the room. Currently denies any complaint. Counseled regarding smoking cessation. He has been started on dual antiplatelets, beta-maryjane, ARB and statin. Plan to discharge home tomorrow ifno overnight event. CRITICAL CARE TIME: less than 30 mins Documented By: Barbara Rivero MD 10/10/221329 Signed By: <Electronically signed by Barbara Rivero MD> 10/10/221332 [facility] Work Phone: 1(485) 839-957603-18-2023 History of Present illness Narrative* Patient presents to the office ambulatory with steady gait. * This is initial in clinic follow-up at [facility]. * October 10, 2022 transferred to [facility] from [facility] d/t NSTEMI. Managed by with uneventful PCI, LVEF 45-50% cath and 60-65% echo. His postprocedure course was complicated by 14 beat wide-complex tachycardia and complete heart block with 6.9-second pauses (on unknown amount of beta-maryjane at that time) he was monitored for an additional 2 nights without any recurrentepisodes. At time of discharge she was initiated on aspirin, Brilinta, Aldactone and valsartan. Statin was not initiated for unclear reasons. * Patient reports on the day of admit he had nausea and heartburn. In retrospect he reports increaseddyspnea on exertion and fatigability with a significant change in exercise capacity and functional tolerance over the last 6 weeks. He presents today were right radial cath site has healed without adverse sequela. He has had no recurrent chest pain. He has newly diagnosed COPD, was evaluated by pulmonary yesterday and initiated Trelegy that he has yet to start. He denies any worsening of his baseline functional class IIb shortness of breath, he has to ambulate up 4 sets of stairs to his apartment. He denies any orthopnea or PND. His shortness of breath has been this way greater than 1 year. * In regards to new medication: * Brilinta-denies worsening dyspnea, has insurance coverage * No statin was started at discharge, will initiate today. Unknown lipid status. * Aldactone and valsartan without evidence of hypotension. * Reviewed the importance of DAPT. 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 His PCP has him off work for 4 weeks. He is in agreement to start cardiac rehab. Recommend at least 3 weeks of cardiac rehab prior to returning to work. * He was a 1.5 pack smoker, has reduced to 5 cigarettes daily. Is working on quitting, declines pharmaceutical assistance at this time. * He has order to obtain sleep study in the near future. * The patient states he has been generally stable since the last visit. Comorbid Illnesses: hypertension and hyperlipidemia. * Symptoms: denies chest pain at rest, denies exertional chest pain, stable dyspnea, improved fatigue, stable exercise intolerance, denies palpitations, denies edema, denies orthopnea, denies dizzinessand denies orthostatic dizziness. * Associated symptoms: no syncope. * His symptoms do not limit his activities. * Disease Monitoring: The patient has had a stable weight. * Medications: the patient is adherent with his medication regimen. He denies medication side effects. [facility] [address] DO Work Phone: 1(761) 427-507003-18-2023 Procedure [facility]03-18-2023 Procedure [facility]03-18-2023 Consult note Author Rubén Tatum [facility] October 10, 2022 9:54am Note Date/Time October 10, 2022 9:[address] [facility] [address] [place] [address] Cardiology Consult Note Signed Patient: Hector Gaspar SR MR#: [id number] : 1960 Acct:[id number] Age/Sex: 62 / M Adm Date: 3 Loc: Room: [address] [place] [address] Type: ADM IN Attending Dr: Barbara Rivero MD Copies to: MD Barbara Barry MD Stephen M Tann, MD~ Cardiology HPI History of Present Illness Consult Date: 10/10/22 Reason for Consult: Nausea, non-STEMI HPI: Mr. Gaspar is a 62 year old male with multiple cardiac risk factors but no known prior coronary heart disease who presented to [facility] emergency department lastnight complaining of nausea x2 days. Patient states the day before yesterday hehad some heartburn. . This lasted for several hours and he attributed to having recently eaten a very greasy sandwich that he bought at a gas station. The heartburn resolved after a few hours after the discomfort in his chest and mid epigastrium dissipated he has had relatively consistent nausea ever since. He presented to [facility] emergency department last evening with these complaints. In the ER at [facility] ECG showed Q waves in the inferolateral leads but no acuteischemic changes. Initial troponin was elevated at greater than 5000. I was contacted and shown the ECG. I agreed with the ER doctor's assessment that there were no acute ischemic changes. At the time the patient's vital signs were stable and he was pain free and his nausea had been relieved with administration of IV Zofran. As such the patient was transferred to our facility on medical treatment for a non- STEMI including anticoagulation with IV unfractionated heparin drip. This morning the patient is feeling well without chest pain or nausea. However his cardiac enzymes have continued to trend upward to 6000 and then greater [id number]. Echocardiogram at bedside this morning shows normal left ventricular regional wall motion and systolic function with an ejection fraction 55 to 60%. I am now consulted for further cardiac evaluation and management. Of note the patient has normal renal function with an estimated GFR greater than 60 mL/min. Review of Systems Review of Systems All other systems reviewed & are negative unless noted below or in HPI PMFSH Vaccinated for COVID-19?: No Medical History Asthma COPD (chronic obstructive pulmonary disease) Hypertension Family History Sister Heart attack Mother Stroke Father Diabetes Social History Smoking Status: Current every day smoker Tobacco Type: cigarettes Substance Use Type: None Meds Medications and Allergies Allergies Penicillins Adverse Reaction (Verified 10/10/22 05:08) Gastrointestinal Upset pneumococcal vaccine Adverse Reaction (Verified 10/10/22 05:08) Redness of Skin Home Medications acetaminophen 325 mg tablet (Tylenol) 650 mg PO Q6H PRN Pain 10/10/22 [History Confirmed 10/10/22] albuterol sulfate 90 mcg/actuation aerosol inhaler 1 puff inhalation Q4H PRN Shortness Of Breath 10/10/22 [History Confirmed 10/10/22] fluticasone propionate 100 mcg/actuation blister powder for inhalation 1 inh inhalation BID 10/10/22 [History Confirmed 10/10/22] losartan 100 mg tablet 100 mg PO DAILY 10/10/22 [History Confirmed 10/10/22] Exam Physical Exam Vital Signs: Temp Pulse Resp BP Pulse Ox O2 Del Method 97.8 F 76 18 144/84 H 95 Room Air 10/10/22 04:57 10/10/22 04:57 10/10/22 04:57 10/10/22 04:57 10/10/22 04:57 10/10/22 08:04 Const General: cooperative, healthy appearing, comfortable and no acute distress Nutritional Appearance: overweight Orientation: alert, awake and oriented x3 HEENT Head: normocephalic and atraumatic Face and sinus: face symmetric Mouth: moist mucous membranes Teeth and gingiva: poor dentition Eyes Conjunctivae: conjunctivae normal Sclera: sclerae normal EOM: EOM intact bilaterally Direct ophthalmoscopy: no photophobia Neck Neck: no lymphadenopathy and supple Thyroid: thyroid normal Carotids: normal carotid upstroke Lymphatic: no lymphadenopathy noted Chest Chest palpation & inspection: normal inspection of the chest and normal palpation of entire chest wall Resp Effort & Inspection: normal respiratory effort, able to speak in complete sentences and symmetric chest movement Auscultation: clear to auscultation bilaterally Cardio Jugular venous pressure: no JVD Palpation: normal PMI Rate: regular rate Rhythm: regular rhythm Heart Sounds: S1 normal, S2 normal and gallop S4 gallop GI Inspection: normal to inspection Palpation: soft and no hepatosplenomegaly Skin General: no rashes or lesions noted Trauma: no lacerations or abrasions Wounds: no wounds Neuro General: patient alert, patient awake, patient oriented x3, moves all extremities and no focal motor deficits Cranial Nerves: CN's II-XII intact bilaterally Cognition: normal cognition Speech: speech normal Motor: muscle tone normal throughout Sensory Exam: no sensory deficits noted Extrem General: no clubbing, cyanosis or edema Psych Appearance: grossly normal Mental Status: mental status grossly normal Mood: congruent mood Affect: normal affect Speech and Movement: speech and movement normal Attitude: cooperative Thought Process: normal Thought Content: normal Insight: fair Judgment: fair ARIES Risk Score ARIES Risk Score Predictor Historical: 3 or more Risk Factors: FHx,HTN,elevated cholesterol,DM,active smoker and ASA use in Past 7 Days Presentation: Recent (>/=24hr) Angina and Increased Cardiac Marker Score Risk Score (0-7): 4 Results Labs 10/10/22 06:10 10/10/22 06:10 Lab results: Cardiac Enzymes 10/10/22 Range/Units 06:10 AST 48 H (13-39) U/L Lipids 10/10/22 Range/Units 06:10 Triglycerides 116 (0-149) mg/dL Cholesterol 235 H (140-200) mg/dL HDL Cholesterol 48 (29-71) mg/dL Cholesterol/HDL Ratio 4.9 (<5.0) CBC 10/10/22 10/10/22 Range/Units 05:30 06:10 RBC 4.09 4.13 (3.90-5.60) X10E6/uL Hgb 12.4 L 12.5 L (13.0-17.0) g/dL Hct 36.2 L 36.7 L (38.8-50.0) % Plt Count 201 199 (150-450) x10E3/uL Neut # (Auto) 2.8 2.9 (1.8-7.7) x10E3/uL Lymph # (Auto) 1.4 1.4 (1.00-4.8) x10E3/uL Evans # (Auto) 0.6 0.6 (0.0-0.8) x10E3/uL Eos # (Auto) 0.2 0.2 (0.0-0.45) x10E3/uL Baso # (Auto) 0.0 0.0 (0.0-0.2) x10E3/uL Comprehensive Metabolic Panel 10/10/22 Range/Units 06:10 Sodium 139 (136-145) mmol/L Potassium 4.1 (3.5-5.1) mmol/L Chloride 108 H (98-107) mmol/L Carbon Dioxide 25.6 (21.0-31.0) mmol/L BUN 18 (7-25) mg/dL Creatinine 1.04 (0.70-1.30) mg/dL Glucose 102 (74-109) mg/dL Calcium 9.1 (8.6-10.3) mg/dL AST 48 H (13-39) U/L ALT 20 (7-52) U/L Alkaline Phosphatase 47 (34-104) U/L Total Protein 6.7 (6.4-8.9) gm/dL Albumin 4.1 (3.5-5.7) gm/dL Intake and Output 10/09/22 10/10/22 10/10/22 23:59 07:59 15:59 Intake Total 0 / 0 Balance 0 / 0 Intake: Oral 0 / 0 Other: Weight 101.7 kg Date of Last Bowel Movement 10/09/22 Patient Weight 10/10/22 23:59 Weight 101.7 kg Lab 10/10/22 10/10/22 05:30 06:10 PT 10.9 INR 0.9 APTT 35.9 EKG Interpretations EKG Attestation EKG: I reviewed this ECG and interpreted as documented below: Dysrhythmias Sinus rhythms and dysrhythmias: sinus rhythm [place], pacemaker, normal Myocardial infarction: inferior [place] (old age indeterminate) and lateral KY (acuteor recent) A&P - Cardiology (1) NSTEMI (non-ST elevated myocardial infarction): Assessment/Problem Details: High risk non-STEMI. Anginal symptoms now resolved. ECG with evidence of infarct in the inferolateral leads. No acute ischemic changes. Elevated ARIES risk score 4. Plan: 1. Maintain n.p.o. 2. Urgent cardiac catheterization today in the treatment of high risk non-STEMI Code(s): I21.4 - Non-ST elevation (NSTEMI) myocardial infarction Plan Further diagnostic and therapeutic maneuvers to be forthcoming based on the results of the patient's cardiac catheterization. Thank you very much for this kind consultation. Documented By: Rubén Tatum MD 10/10/22 0948 Signed By: <Electronically signed by Rubén Tatum MD> 10/10/22 0954 [facility] [facility] Work Phone: [phone] [phone] History and physical note Author Galo Dent [facility] October 10, 2022 7:28am Note Date/Time October 10, 2022 7:[address] [facility] [address] [place] [address] Hospitalist H&P Signed Patient: Hector Gaspar SR MR#: [id number] : 1960 Acct:[id number] Age/Sex: 62 / M Adm Date: 3 Loc: Room: [address] [place] [address] Type: ADM IN Attending Dr: Barbara Rivero MD Copies to: MD Barbara Barry MD Mushtaq Mahmood, MD~ HPI DATE OF EXAMINATION: 10/10/22 CHIEF COMPLAINT: Non-ST elevation [place] HISTORY OF PRESENT ILLNESS: Patient is a 62-year-old gentleman with history of hypertension, heavy smoking about 1-1/2 pack for 45 years, COPD, strong family history of coronary artery disease, came to us from [facility] emergency department last night. Patient presented to the ER with ongoing nausea and heartburn. Patient states that he had eaten some greasy food and was having that symptom. He went to his daughter's home who is a nurse and found to have his blood pressure very high. She is sent him to emergency department. In the ER his blood pressure was 194/112 mmHg. First set of high sensitive troponin was 9000. Patient still didnot complain any chest heaviness or pain. He denied diaphoresis, lightheadedness. His EKG did not show any ST elevation but there is a Q wave inthe lateral leads. The ER physician did talk to the purchasing coordinator here in [facility]. Patient was started on heparin drip, nitro patch was applied. He was sent to our hospital. Upon arrival in the [facility] patient complained about headache. Nitropatch was removed. He was given IV morphine 2 mg x 1. He felt better and did not complain any further headache or chest pain. Patient's brother and his sister of a heart attack at age mid 50s. Review of Systems Review of Systems All other systems reviewed & are negative unless noted below or in HPI Constitutional Constitutional: Denies body ache(s), Denies chills and Denies headache(s) Eyes Eyes: Denies blurry vision and Denies photophobia ENT Ears, Nose, Mouth, and Throat: Denies headache(s) Cardiovascular Cardiovascular: Denies rapid heart rate and Denies syncope Respiratory Respiratory: Denies hemoptysis Gastrointestinal Gastrointestinal: Denies hematochezia and Denies melena Musculoskeletal Musculoskeletal: Denies deformity and Denies muscle weakness Integumentary/Breasts Skin/Breast: Denies nail changes, Denies rash and Denies unusual bruising Neurologic Neurologic: Denies confusion, Denies convulsions, Denies headache(s), Denies memory loss and Denies syncope Psychiatric Psychiatric: Denies confusion, Denies hallucinations and Denies memory loss Endocrine Endocrine: Denies heat intolerance Hematologic/Lymphatic Hematologic/Lymphatic: Denies easy bruising PMFSH Vaccinated for COVID-19?: No Medical History (Updated 10/10/22 @ 07:26 by Galo Dent MD) Asthma COPD (chronic obstructive pulmonary disease) Hypertension Family History (Updated 10/10/22 @ 05:12 by Inna Galindo RN) Sister Heart attack Mother Stroke Father Diabetes Social History Smoking Status: Current every day smoker Tobacco Type: cigarettes Substance Use Type: None Meds Medications and Allergies Allergies Penicillins Adverse Reaction (Verified 10/10/22 05:08) Gastrointestinal Upset pneumococcal vaccine Adverse Reaction (Verified 10/10/22 05:08) Redness of Skin Home Medications acetaminophen 325 mg tablet (Tylenol) 650 mg PO Q6H PRN Pain 10/10/22 [History Confirmed 10/10/22] albuterol sulfate 90 mcg/actuation aerosol inhaler 1 puff inhalation Q4H PRN Shortness Of Breath 10/10/22 [History Confirmed 10/10/22] fluticasone propionate 100 mcg/actuation blister powder for inhalation 1 inh inhalation BID 10/10/22 [History Confirmed 10/10/22] losartan 100 mg tablet 100 mg PO DAILY 10/10/22 [History Confirmed 10/10/22] Exam Physical Exam Vital Signs: Temp Pulse Resp BP Pulse Ox O2 Del Method 97.8 F 76 18 144/84 H 95 Room Air 10/10/22 04:57 10/10/22 04:57 10/10/22 04:57 10/10/22 04:57 10/10/22 04:57 10/10/22 07:08 Const General: cooperative, no acute distress and well hydrated Orientation: alert, awake and oriented x3 HEENT Head: normocephalic and atraumatic Face and sinus: normal facial exam and sinuses nontender Mouth: oral mucosae normal Eyes Conjunctivae: conjunctivae normal Sclera: sclerae normal Neck Thyroid: thyroid normal Carotids: normal carotid upstroke Lymphatic: no lymphadenopathy noted Resp Effort & Inspection: normal respiratory effort, able to speak in complete sentences and symmetric chest movement Auscultation: clear to auscultation bilaterally Cardio Palpation: normal PMI Rate: regular rate Rhythm: regular rhythm Heart Sounds: S1 normal and S2 normal Pulses: dorsalis pedis present GI Palpation: soft and no hepatosplenomegaly Auscultation: normal bowel sounds Skin General: no rashes or lesions noted and turgor normal Neuro General: tone normal and moves all extremities Speech: speech normal Gait: normal gait Motor: muscle tone normal throughout Sensory Exam: no sensory deficits noted Extrem General: full ROM Psych Appearance: grossly normal Mental Status: mental status grossly normal Mood: congruent mood Affect: normal affect Attitude: cooperative Judgment: judgment good Results Lab Results Labs: Laboratory Last Values Corrected WBC 5.1 X10E3/uL (4.1-10.5) 10/10/22 06:10 Uncorrected WBC Count 5.1 x10E3/uL (4.1-10.5) 10/10/22 06:10 RBC 4.13 X10E6/uL (3.90-5.60) 10/10/22 06:10 Hgb 12.5 g/dL (13.0-17.0) L 10/10/22 06:10 Hct 36.7 % (38.8-50.0) L 10/10/22 06:10 MCV 88.8 fl (83.5-101) 10/10/22 06:10 MCH 30.3 pg (27.5-35.2) 10/10/22 06:10 MCHC 34.1 g/dL (32.5-35.6) 10/10/22 06:10 RDW 14.6 % (12.0-14.8) 10/10/22 06:10 Plt Count 199 x10E3/uL (150-450) 10/10/22 06:10 MPV 7.2 fl (6.6-10.1) 10/10/22 06:10 Neut % (Auto) 56.1 % (.) 10/10/22 06:10 Lymph % (Auto) 27.5 % (.) 10/10/22 06:10 Evans % (Auto) 11.4 % (.) 10/10/22 06:10 Eos % (Auto) 4.4 % (.) 10/10/22 06:10 Baso % (Auto) 0.6 % (.) 10/10/22 06:10 Nucleat RBC Rel Count 0.1 /100 WBC (0-0.5) 10/10/22 06:10 Neut # (Auto) 2.9 x10E3/uL (1.8-7.7) 10/10/22 06:10 Lymph # (Auto) 1.4 x10E3/uL (1.00-4.8) 10/10/22 06:10 Evans # (Auto) 0.6 x10E3/uL (0.0-0.8) 10/10/22 06:10 Eos # (Auto) 0.2 x10E3/uL (0.0-0.45) 10/10/22 06:10 Baso # (Auto) 0.0 x10E3/uL (0.0-0.2) 10/10/22 06:10 PT 10.9 Seconds (9.0-12.9) 10/10/22 05:30 INR 0.9 10/10/22 05:30 APTT 35.9 Seconds (25.1-36.5) 10/10/22 06:10 A&P - Hospitalist Assessment/Plan (1) NSTEMI (non-ST elevated myocardial infarction): (2) Tobacco abuse: Plan Patient will be admitted under medical telemetry for closer monitoring of cardiorespiratory as well as neuro status. We will continue with heparin drip for now. Patient denies any active chest pain at this moment. We will run 3 sets of high sensitive troponin. He will be kept n.p.o. for possible left heartcath by cardiology today. I have consulted [facility] heart. He was offered nicotine patch. I have started him on a beta-maryjane and aspirin. His blood pressure will be managed with home medications plus as needed hydralazine or labetalol. ACS protocol will be initiated. GI prophylax will be done with PPI. CODE STATUS full. Total time spent on this admission encounter was about 45 minutes. We discussed in long length about tobacco cessation. Patient is trying to cut down the amount of cigarette smoking. Documented By: Galo Dent MD 10/10/22 0719 Signed By: <Electronically signed by Galo Dent MD> 10/10/22 0728 [facility] Work Phone: [phone] 785-955502-15-2023 Evaluation note* Encounter Date Diagnosis Assessment Notes Treatment Notes Treatment Clinical Notes Aug, Acute pain of right knee (ICD-10 - M25.561) Hector presents with right knee pain and effusion. At this juncture we have discussed the findings and diagnosis as well as personally reviewed appropriate imaging and performed interpretation of related testing and examination with the patient in office today. Prior medical notes from [facility] ED and history have been reviewed. At this time I would recommend aspiration injection of the knee and he is agreeable. Risks and benefit of injection were discussed and verbal consent was obtained. Under sterile technique the patient's right knee was aspirated revealing approximately 50 cc of normal-appearing joint fluid and then injected via the superolateral with 4 cc of Marcaine and 1 cc of Kenalog, this was tolerated well without any adverse reaction. Band-Aid was applied to the area. We will plan for follow-up as needed. The patient has been involved in our cooperative treatment plan and agrees to move forward with treatment at this time. Hector presents with a complaint of acute pain to the right knee. Appropriate imaging obtained, reviewed and discussed in detail with patient. The patient is suffering from degenerative arthritis involving the knee. We discussed the conservative treatment options which can be beneficial in relieving pain, including gentle non-impact motion exercise and non-steroidal anti-inflammatory medication. We discussed the use of occasional cortisone injections that can provide pain relief as well as hyaluronan lubricant injection. There is large effusion to the site as well. Discussed treatment via aspiration, patient voiced understanding and was agreeable to treat with aspiration and cortisone injection. Patient was prepped under sterile conditions. Patient was then aspirated of approximately 47 mls of normal appearing fluid under sterile conditions. We performed a 1/1cc marcaine / kenalog cortisone injection into the knee joint under sterile technique. Patient tolerated the injection well without adverse reaction. Dressing was applied to knee. Patient tolerated well. Aug, Primary osteoarthritis of right knee (ICD-10 - M17.11) Today we have discussed degenerative joint disease of the knee and its treatment. Imaging was discussed and explained to the patient. We discussed recommended conservative therapies including physical therapy, anti-inflammatory medications, and weight loss strategies. We also discussed other treatment options including cortisone injections, Visco supplementation injections which are options for treatment. I have laid out the course of knee DJD including the end-stage treatment of total joint arthroplasty. The patient recognizes and understands our options and goals and we will move forward with our treatment. T Aug, Knee effusion, right (ICD-10 - M25.461) Aug, Tobacco abuse (ICD-10 - Z72.0) Patient has a tobacco use disorder we have discussed this today. I have advised complete cessation. We have discussed complications caused by tobacco use including reduced bone mineral density and increased risk of musculoskeletal injuries as well as increased surgical risk of infection, physiologic changes to skin and bone healing, anesthesia complications, mental health changes that affect patient reported outcomes, and a poor prognosis with tobacco use. I have recommended that tobacco cessation be performed at least 4 weeks prior to any surgical interventions. Tobacco cessation program at [facility] has been recommended and offered as well as the national Quitline 2-941-TPFN-NOW. We have discussed pharmacologic treatment including nicotine replacement therapy which can lead to a positive nicotine test as well as nicotine free medications both of which will need to be managed by their PCP. We have provided handout for the [facility] Tobacco Cessation Program. This discussion was limited to 5 minutes. Aug, Other See orders for this visit as documented in the electronic medical record. [facility] Other 01-19-2023 Evaluation note* Encounter Date Diagnosis Assessment Notes Treatment Notes Treatment Clinical Notes Jul, Chronic obstructive pulmonary disease with acute exacerbation (ICD-10 - J44.1) Discussed diagnosis with patient. Medication profile and possible SE reviewed with patient. Take as directed. Keep appt w Dr. Castillo on 08/31. Notify office if not improving or worsening. Patient verbalizes understanding and agrees to treatment plan. [facility] Other 01-05-2023 Evaluation note* Encounter Date Diagnosis Assessment Notes Treatment Notes Treatment Clinical Notes Jul, Chronic obstructive pulmonary disease with acute exacerbation (ICD-10 - J44.1) [facility] [employer] Other Discharge summary Author Barbara Rivero [facility] October 13, 2022 2:14pm Note Date/Time October 13, 2022 2:[address] [facility] [address] [place] [address] Discharge Summary Signed Patient: Hector Gaspar SR MR#: [id number] : 1960 Acct:[id number] Age/Sex: 62 / M Adm Date: 3 Loc: Room: [address] [place] [address]: Barbara Rivero MD Copies to: MD Barbara Barry MD~ Providers Date of Discharge: 10/13/22 Discharging Provider: Barbara Rivero Primary Care Provider: Brock Modi Consults: 10/10/22 05:47 Consult to Cardiology Routine Discharge Diagnosis (1) NSTEMI (non-ST elevated myocardial infarction): (2) Heart block AV complete: (3) Sleep apnea in adult: (4) COPD (chronic obstructive pulmonary disease): (5) Hypertension: (6) Tobacco abuse: Final Diagnosis Final Discharge Diagnosis: As above Summary Hospital Course Hospital course: Patient is a pleasant 62-year-old male with past medical history of COPD, activetobacco smoking and other medical comorbidities. Patient was transferred from outside facility for non-ST elevated [place]. He was started on heparin drip as per ACS protocol and cardiology was consulted. Cardiogram showed EF of 60 to 65% with mild diastolic dysfunction. Cardiac cath showed hemodynamically significant two- vessel disease for which she underwent stent placement to mid RCA and proximal PDA. Postprocedure in the night he was noted to have runs of 14 beats wide-complex tachycardia and episodes of complete heart block. Beta-maryjane was discontinued and he was kept another day for overnight for monitoring. Next night he had another episode of 6.9 second pause although he remained asymptomatic. He was kept overnight to assess if he continues to have pauses he will require pacemaker placement. Patient did not have further episode of pause or wide-complex tachycardia. He remained asymptomatic and has been ambulating in the hart without any difficulty. Counseled extensively regarding smoking cessation and follow-up with cardiology which she seems motivated. Patient has been cleared by cardiology to be discharged home. He will benefit from sleep study due to high concern for sleep apnea. I have also started him on Advair regarding his history of COPD with no signs of exacerbation during hospital stay. Patient did not qualify for oxygen on evaluation as well. Condition Condition at Discharge: Stable Status at Discharge Functional status at discharge: independent ambulation Overall status at discharge: patient is back to baseline Time Spent with Patient Time spent providing/coordinating discharge services (# min): 40 Surgeries and Procedures Operation Date: 10/10/22 11:00 Actual Procedures p CL LHC & COR Angio - Rubén Tatum MD p CL Stent 1st Vessel RCA ANTONIO Tatum MD p CL Stent 1st Vessel CX ANTONIO Tatum MD Diagnostic Studies Completed and Pending Studies Pending studies at discharge: 10/10/22 12:17 CPR cardiac rehab ed Routine Exam Physical Exam Vital Signs: Temp Pulse Resp BP Pulse Ox O2 Del Method O2 Flow Rate 97.4 F L 107 H 17 125/85 97 Nasal Cannula 2 10/13/22 11:57 10/13/22 11:57 10/13/22 11:57 10/13/22 11:57 10/13/22 11:57 10/13/22 11:57 10/13/22 11:57 Const Orientation: alert, awake and oriented x3 Resp Effort & Inspection: normal respiratory effort and able to speak in complete sentences Auscultation: no rales, no rhonchi and no wheezes Cardio Rate: regular rate Rhythm: regular rhythm Heart Sounds: S1 normal and S2 normal GI Palpation: soft, not firm, no guarding and nontender Neuro General: patient alert, patient awake, patient oriented x3, moves all extremities and no focal motor deficits Cranial Nerves: CN's II-XII intact bilaterally Cognition: normal cognition Speech: speech normal Motor: muscle tone normal throughout and strength 5/5 throughout Sensory Exam: no sensory deficits noted Extrem General: no clubbing, cyanosis or edema and no calf tenderness Discharge Plan Discharge Plan Patient Disposition: Home Activity: Other Comment: Post heart cath instructions Diet: Low-Fat and Low-Sodium Additional Instructions: DISCHARGE INSTRUCTIONS FOR ANGIOPLASTY/CORONARY/PERIPHERAL/STENT IMPLANT FOR ADULT ANTICOAGULATION -Since the greatest risk of a blood clot forming with the stent occurs in the first 2-3 weeks after implantation, you will need to take anticoagulants for at least 12-18 months. ANTICOAGULATION MEDICATION Aspirin 81mg once a day, Ticagrelor (Brilinta) 90mg twice a day STATIN MEDICATION Atorvastatin (Lipitor) 80 mg Drug-Eluting Stent (ANTONIO) DO NOT discontinue Brilinta/Aspirin during the first few months regardless of what you are advised by your family doctor or pharmacist, without first calling the purchasing coordinator who implanted the stent. If you require pain relief during this time, please take only ACETAMINOPHEN (TYLENOL)- NO additional aspirin or ibuprofen. DISCHARGE ACTIVITIES ARE FOLLOWS: First week after discharge: -Take it easy at home, no strenuous activity. -Do not lift or pull objects over 10-15 pounds, including children, and groceries for four weeks. If puncture site is at wrist do NOT lift more than three pounds for three days. - May walk up stairs. -May shower. -No excessive scrubbing of the affected site (groin). -May ride in car. -May resume sexual intercourse after 1-2 weeks. -No MRI for 12 days. -May drive in 4-7 days. -If puncture site is at the wrist do not manipulate the wrist for 24 hours, and no soaking wrist for three days. Second Week: -May take a bath -May start walking 3 times a week for 15-20 minutes at a leisurely pace. You should be able to carry on a conversation comfortably without feeling winded. -No strenuous activity as in jogging, running, weight lifting, stair steppers, etc. until the purchasing coordinator approves these activities. Check with the purchasing coordinator on your first follow-up visit. CALL YOUR PHYSICIAN at [phone]: -If bleeding should occur from the catheter insertion site- apply pressure to the site then immediately call us. -Report any fever, redness, drainage, increased swelling, or firmness at the catheter insertion site. Some bruising or slight swelling may be present at thetime of discharge. -Should arm or leg become cold, numb, white, or blue, contact the purchasing coordinator immediately. -IF you should experience episodes of angina, e.g. chest discomfort, heaviness, tightness, pressure burning with or without radiation to the neck, jaw, arms or back- use 1 Nitrostat tablet under your tongue every 5-10 minutes and up to three tablets. IF NO RELIEF, CALL 911 or GO TO THE NEAREST EMERGENCY ROOM. -Please notify our office if you have recurrent angina. -[Cardiac Rehab Education Provided. Participation in the Cardiopulmonary Rehabilitation program is recommended. Please call Central Scheduling at [phone] to schedule your appointment.] The attending purchasing coordinator or [facility] nurse clinician should provide you with specific instructions regarding activity, diet, medications, and further follow up for you. Follow the medication instructions provided on your discharge. If the dosages and instructions on this sheet differ from the dosage and instructions on the bottle, follow the instructions on the bottle. [facility] is not responsible for incorrect prescription information provided by thepatient during their visit. Do not stop your medications without consulting your health care provider. Please take the list with you to your next doctor's appointment. Instructions: Coronary Angioplasty (DC), Coronary Stenting (DC), Angina (DC), Chest Pain (DC), Drug Eluting Stents Stand Alone Forms: Work/School Release Form Prescriptions: New aspirin [Children's Aspirin] 81 mg Tablet,Chewable 81 mg PO DAILY 90 Days Qty: 90 3RF Brilinta 90 mg Tablet 90 mg PO BID 90 Days Qty: 180 3RF nitroglycerin 0.4 mg tablet, sublingual 0.4 mg sublingual Q5M PRN (Reason: chest pain) 30 Days Qty: 25 3RF Rx Instructions: do not exceed 3 doses per episode spironolactone 25 mg tablet 25 mg PO QAM 30 Days Qty: 30 12RF valsartan 160 mg tablet 160 mg PO QHS 30 Days Qty: 30 12RF fluticasone propion-salmeterol [Advair Diskus] 250-50 mcg/dose blister with device 1 inh inhalation BID Qty: 60 0RF Continued acetaminophen [Tylenol] 325 mg Tablet 650 mg PO Q6H PRN (Reason: Pain) albuterol sulfate 90 mcg/actuation HFA aerosol inhaler 1 puff INHALATION Q4H PRN (Reason: Shortness Of Breath) Patient Comments: INHALE 1 PUFF BY MOUTH EVERY 4 HOURS NEEDED Discontinued fluticasone propionate 100 mcg/actuation blister with device 1 inh INHALATION BID Patient Comments: INHALE 1 PUFF INTO THE LUNGS TWICE A DAY losartan 100 mg tablet 100 mg PO DAILY Patient Comments: TAKE 1 TABLET BY MOUTH EVERY DAY Other Ambulatory Orders: INSULATION BLOWER polysom procedure (Routine) Timeframe: 1 Week Location: Determined by Patient Ordered By: Barbara Rivero Follow Up: [facility] [Outside] (Left message with [facility] regarding need for outpatient sleep study. Please call office if you do not hear from them in 24 hours. An order for the sleep study has been sent electronically. ) Janine Faustin APRN [Nurse Practitioner] - 10/21/22 3:00 pm (Follow-up withCardiology. ) Brock Modi MD [Primary Care Provider] - 10/16/22 10:00 am (Follow-up with your Primary Care Provider, call office to reschedule if needed. ) Documented By: Barbara Rivero MD 10/13/22 1406 Signed By: <Electronically signed by Barbara Rivero MD> 10/13/22 1414 [facility] Work Phone: Evaluation noteNo assessment information available [facility] Work Phone: Evaluation noteNo InformationNort [employer] Other Evaluation note* Diagnosis Onset Date Resolution Status COPD (chronic obstructive pulmonary disease) acute Heart block AV complete acut e Hypertension acute Hypoxemia acute NSTEMI (non-ST elevated myocardial infarction) acute Sleep apnea in adult acute Tobacco abuse acute Ventricular tachycardia seen on residential monitor acute [facility] Work Phone: [facility] general Narrative - Reported* Type Description Date Medical History Abnormal CT of the chest Medical History Generalized osteoarthritis Medical History Fatigue Medical History Adverse effects of o ther and unspecified bacterial vaccines Medical History Pain, joint, shoulder, left Medical History Derangement of medial meniscus o f left knee Medical History Encounter for immunization Medical History Chronic obstructive pulmonary disease with (acute) exacerbation Medical History Encounter for immunization Medical History Hip joint pain Medical History Other nonspecific abnormal findi ng of lung field Medical History Tobacco abuse-unspec Medical History Chronic obstructive pulmonary di sease, unspecified Medical History Other sleep disorders Medical History COPD with acute exacerbation Medical History HTN (hypertension) Medical History Pain, joint, shoulder, right Medical History Arthralgia Medical History Tobacco abuse Medical History Nausea alone Medical History Dyspnea on exertion Medical History Chronic obstructive pulmonary disease, unspecified COPD type Medical History Bronchitis Medical History Bronchitis, asthmatic Medical History Abdominal aortic ane urysm, without rupture, unspecified Medical History Muscle spasm Medical History Contact with/suspect ed exposure to potentially hazardous substances Medical History Myalgia Medical History Situational anxiety Medical History Cigarette nicotine d ependence with nicotine-induced disorder Medical History Drug allergy, antibiotic Medical History Mass of right lung Medical History Neck pain on left side Medical History Pneumonia Medical History Sepsis, due to unspecified organ ism Medical History Obesity Surgical History appendectomy 05/02/18 Hospitalization History SEE SURGICAL HX [facility] Other [facility] Narrative - Reported* Type Description Date Medical History Abnormal CT of the chest Medical History Generalized osteoarthritis Medical History Fatigue Medical History Adverse effects of o ther and unspecified bacterial vaccines Medical History Pain, joint, shoulder, left Medical History Derangement of medial meniscus o f left knee Medical History Encounter for immunization Medical History Chronic obstructive pulmonary disease with (acute) exacerbation Medical History Encounter for immunization Medical History Hip joint pain Medical History Other nonspecific abnormal findi ng of lung field Medical History Tobacco abuse-unspec Medical History Chronic obstructive pulmonary di sease, unspecified Medical History Other sleep disorders Medical History COPD with acute exacerbation Medical History HTN (hypertension) Medical History Pain, joint, shoulder, right Medical History Arthralgia Medical History Tobacco abuse Medical History Nausea alone Medical History Dyspnea on exertion Medical History Chronic obstructive pulmonary disease, unspecified COPD type Medical History Bronchitis Medical History Bronchitis, asthmatic Medical History Abdominal aortic ane urysm, without rupture, unspecified Medical History Muscle spasm Medical History Contact with/suspect ed exposure to potentially hazardous substances Medical History Myalgia Medical History Situational anxiety Medical History Cigarette nicotine d ependence with nicotine-induced disorder Medical History Drug allergy, antibiotic Medical History Mass of right lung Medical History Neck pain on left side Medical History Pneumonia Medical History Sepsis, due to unspecified organ ism Medical History Obesity Surgical History appendectomy 05/02/18 Surgical History 3 Stents 09/2022 Hospitalization History SEE SURGICAL HX [facility] Other History general Narrative - Reported* Type Description Date Medical History Generalized osteoarthritis Medical History Pain, joint, shoulder, left Medical History Derangement of medial meniscus o f left knee Medical History Tobacco abuse-unspec Medical History Chronic obstructive pulmonary di sease, unspecified Medical History Other sleep disorders Medical History HTN (hypertension) Medical History Arthralgia Medical History Tobacco abuse Medical History Chronic obstructive pulmonary disease, unspecified COPD type Medical History Bronchitis, asthmatic Medical History Abdominal aortic ane urysm, without rupture, unspecified Medical History Myalgia Medical History Mass of right lung Medical History Neck pain on left side Medical History Pneumonia Medical History Sepsis, due to unspecified organ ism Medical History Obesity Surgical History appendectomy 05/02/18 Surgical History 3 Stents 09/2022 Hospitalization History SEE SURGICAL [facility] Other [facility] Narrative - Reported* Type Description Date Medical History Generalized osteoarthritis Medical History Pain, joint, shoulder, left Medical History Derangement of medial meniscus o f left knee Medical History Tobacco abuse-unspec Medical History Chronic obstructive pulmonary di sease, unspecified Medical History Other sleep disorders Medical History HTN (hypertension) Medical History Arthralgia Medical History Tobacco abuse Medical History Chronic obstructive pulmonary disease, unspecified COPD type Medical History Bronchitis, asthmatic Medical History Abdominal aortic ane urysm, without rupture, unspecified Medical History Myalgia Medical History Mass of right lung Medical History Neck pain on left side Medical History Pneumonia Medical History Sepsis, due to unspecified organ ism Medical History Obesity Medical History heart attack Surgical History appendectomy 05/02/18 Surgical History 3 Stents 09/2022 Hospitalization History SEE SURGICAL HX Hospitalization History pneumonia [facility] Other Chief Complaint and Reason for Visit Chief Complaint M25.561 Elevated Troponin Reason for Visit COPD (chronic obstru ctive pulmonary disease) Heart block AV complete Hypertension Hypoxemia NSTEMI (non-ST elevated myocardial infarction) Sleep apnea in adult Tobacco abuse Ventricular tachycardia seen on residential monitor Chief Complaint M25.561 Elevated Troponin I25.10 I10 E78.2 Reason for Visit COPD (chronic obstru ctive pulmonary disease) Heart block AV complete Hypertension Hypoxemia NSTEMI (non-ST elevated myocardial infarction) Sleep apnea in adult Tobacco abuse Ventricular tachycardia seen on residential monitor Chief Complaint M25.561 Elevated Troponin I25.10 I10 E78.2 j98.11 Reason for Visit COPD (chronic obstru ctive pulmonary disease) Heart block AV complete Hypertension Hypoxemia NSTEMI (non-ST elevated myocardial infarction) Sleep apnea in adult Tobacco abuse Ventricular tachycardia seen on residential monitor Family History Relationship Condition Age at Onset Recorded Date/T mitch sister Myocardial infarction Unknown Not Specified Cerebrovascular accident (CVA) Unknown father Diabetes mellitus Unknown Unknown Family Member Name Dates Details Family history of myocardial infarction: Sister, Brother(V17.3, Z82.49) Status:Active Family history of diabetes m ellitus: Father(V18.0, Z83.3) Status:Active Unknown Family Member Name Dates Details Family history of myocardial infarction: Sister, Brother(V17.3, Z82.49) Status:Active Family history of diabetes m ellitus: Father(V18.0, Z83.3) Status:Active Unknown Family Member Name Dates Details Family history of myocardial infarction: Sister, Brother(V17.3, Z82.49) Status:Active Family history of diabetes m ellitus: Father(V18.0, Z83.3) Status:Active Unknown Family Member Name Dates Details Family history of myocardial infarction: Sister, Brother(V17.3, Z82.49) Status:Active Family history of diabetes m ellitus: Father(V18.0, Z83.3) Status:Active Unknown Family Member Name Dates Details Family history of myocardial infarction: Sister, Brother(V17.3, Z82.49) Status:Active Family history of diabetes m ellitus: Father(V18.0, Z83.3) Status:Active Unknown Family Member Name Dates Details Family history of myocardial infarction: Sister, Brother(V17.3, Z82.49) Status:Active Family history of diabetes m ellitus: Father(V18.0, Z83.3) Status:Active Unknown Family Member Name Dates Details Family history of myocardial infarction: Sister, Brother(V17.3, Z82.49) Status:Active Family history of diabetes m ellitus: Father(V18.0, Z83.3) Status:Active Advance Directives Advance Directive Response Recorded Date/ Time Advance Directives No August 2:30pm Chief Complaint Hospital f/u: 'doing good'* HECTOR GASPAR is being seen for pre-operative clearance. * 62-year-old gentleman here for preoperative risk assessment and clearance at the request of Dr. Campos for endobronchial biopsy to be performed in mid December. Patient sustained high risk non-ST elevation [place] in October 10, 2022 with primary revascularization of the mid RCA with 2 drug-eluting stents in the distal circumflex with 1 drug-eluting stent. These were large stents his left ventricular function was intact with ejection fraction is 60 to 65%. * Patient has persistent exertional dyspnea, large right lower lobe mass with atelectasis, history oftobacco use (current) in addition to COPD, hypertension. * Patient is not on beta-maryjane or calcium antagonist however he is on aspirin, atorvastatin, ticagrelor, spironolactone and valsartan. * Today's ECG reveals sinus tachycardia with inferior Q wave infarction, and incomplete right bundle branch block but otherwise no ischemic changes with a heart rate of 115 beats a minute * He has no angina, arrhythmias, heart failure, repeat hospitalizations or nitrate usage. 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 * Based on current guidelines and most recent literature, this is an appropriate indication to withdraw antiplatelet therapy and proceed with urgent endobronchial biopsy for diagnostic purposes, notably his [place] stents that were recently placed have have FDA approval for early withdrawal of antiplatel et therapy given the excellent results of short-term DAPT and recent literature. * There is risk of early stent thrombosis however estimated risk is less than 2%, similar to on treatment with DAPT, with early withdrawal. At this point in time patient will be 12 weeks from his original interventional procedures, will allow him to withdraw aspirin and ticagrelor for 5 days, proceedwith endobronchial biopsy, and reinitiate DAPT immediately afterwards for the next 9 months to complete his guideline directed medical therapies. He already has a follow-up scheduled with us in the next 8 to 12 weeks. * We have counseled him on smoking cessation today for 3 to 5 minutes. Summary Purpose Additional Source Comments Care Teams (unrecognized sec tion and content) Team Status: Inactive Member Role Status Dates Wagner Marrufo DO Attending Provider Active Team Status: Active Member Role Status Dates Brock Modi MD Primary Care Provider Active Team Status: Inactive Member Role Status Dates Brock Modi MD Primary Care Provider Active Galo Dent MD Admit Provider Active Barbara Rivero MD Attending Provider Active Team Status: Inactive Member Role Status Dates Brock oMdi MD Primary Care Provider Active Janine Cunha APRN Attending Provider Active Team Status: Inactive Member Role Status Dates Brock Modi MD Primary Care Provider Active Adi Campos MD Attending Provider Active Goals (unrecognized section and content) Goals may be documented in a n alternate sectionNo InformationNo InformationNo InformationNo InformationNo InformationNo InformationNo InformationNo InformationNo InformationNo InformationNo InformationNo InformationNo InformationNo InformationNo InformationNo InformationNo InformationNo InformationNo InformationNo Information REASON FOR VISIT (unrecogniz ed section and content) TBHsleep apnea discussionref illAlprazolamRecheck Right KneeReason for Visit:Holter Monitor:HECTOR is here for the application of a 48 hour Holter monitor.Ordering Physician: JANINE CUNHADiagnosis: CAD SINUS PAUSENOHC equipment agreement signed. HECTOR understands monitor is to be returned on: [id number] number [id number] applied.Holter monitor returned and downloaded.messagePulmonary Office NotesRef by Dr. Brock Modi for COPDFA[facility] [place] HAD HEART ATTACKRight Knee PainCheck Upnot feeling back to normal- discussion (unrecognized sect ion and content) No Status Records FoundNo Status Records FoundNo Status Records FoundNo Status Records Found INFORMATION SOURCE (unrecogn ized section and content) DATE CREATED AUTHOR 11/07/2022 [facility] DATE CREATED AUTHOR AUTHOR'S ORGANIZ ATION 11/12/2022 [facility] DATE CREATED AUTHOR AUTHOR'S ORGANIZ ATION 01/02/2023 [facility] DATE CREATED AUTHOR AUTHOR'S ORGANIZ ATION 04/09/2023 [facility] FOR RECORDS PERTAINING TO PATIENTS WHO ARE OR HAVE BEEN ENROLLED IN A CHEMICAL DEPENDENCY/SUBSTANCEABUSE PROGRAM, SOME INFORMATION MAY BE OMITTED. This clinical summary was aggregated from multiple sources. Caution should be exercised in using it in the provision of clinical care. This summary normalizes information from multiple sources, and as a consequence, information in this document may materially change the coding, format and clinical context of patient data. In addition, data may be omitted in some cases. CLINICAL DECISIONS SHOULD BE BASED ON THE PRIMARY CLINICAL RECORDS. [facility] [employer] provides no warranty or guarantee of the accuracy or completeness of information in this document.
== END 2023-06-21 17:36 | disposition home or self-care (01) ==
PROVIDERS: Emergency Provider Emergency Medicine Emergency Medical Services; PCP Family Medicine
DX: R19.7 Diarrhea, unspecified (principal); Z79.82 Long term (current) use of aspirin; Z79.899 Other long term (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; J44.9 Chronic obstructive pulmonary disease, unspecified; E78.00 Pure hypercholesterolemia, unspecified; F17.210 Nicotine dependence, cigarettes, uncomplicated
CPT/HCPCS: 36415; 80048; 85025; 96360; 99284

== ENCOUNTER 2023-06-23 14:20 | Emergency (ER) | payer OTHER, SELFPAY ==
[2023-06-23] VITALS (16 sets, daily range): BP systolic 103–134; BP diastolic 70–103; PULSE 81; RESP 24; TEMP 36.4; O2SAT 91–98; BMI 35.6
--- NOTE | 2023-06-23 14:34 | XR_ITS ---
[facility] [place] [id number] Patient Name: HECTOR HIGHTOWER MRN: [id number] date: 1960 Sex: M Assigned Patient Location: ER Current Patient Location: ER Accession/Order Number: [id number] Exam Date: 06/23/2023 15:11 Report Date: 06/23/2023 15:27 At the request of: NIRMALA PERLA Procedure: XR chest 1V EXAMINATION: XR chest 1V HISTORY: Cough COMPARISON: Portable chest 07/09/2022 TECHNIQUE: Portable chest FINDINGS: The lung parenchyma is free of consolidation or infiltrate. Chronic bibasilar scarring. No pneumothorax or pleural effusion. The cardiac, mediastinal and hilar contours are normal. The visualized osseous structures exhibit no gross abnormality. XR/XR chest 1V IMPRESSION: No acute cardiopulmonary abnormality. Electronically authenticated by: TEE LEWIS Date: 06/23/2023 15:27
--- NOTE | 2023-06-23 14:38 | ED_ITS ---
HPI - Nausea/Vomiting/Diarrhea General Chief complaint: Nausea/Vomiting/Diarrhea Stated complaint: SHORTNESS OF BREATH/NAUSEA Time Seen by Provider: 06/23/23 14:31 Source: patient Mode of arrival: walk-in History of Present Illness HPI Narrative: 63 year old male presents to the ED for N/V, GI upset, increased SOB. Onset was this morning. Denies fever, chills, abd pain, CP. Reports hx COPD; states that is the cause of his SOB. Denies increased sputum production. he is not having pain. He was evaluated here on 06/21/23 for diarrhea. MD elicited complaint: Reports nausea and vomiting; Denies diarrhea Related Data Home Medications Medication Instructions Recorded Confirmed albuterol sulfate 90 mcg/actuation 1 puff inhalation Q4H PRN 01/24/23 06/23/23 aerosol inhaler shortness of breath or wheezing alprazolam 0.5 mg tablet 0.25 mg PO BID PRN anxiety 01/24/23 06/23/23 aspirin 81 mg chewable tablet 1 tab PO DAILY 01/24/23 06/23/23 atorvastatin 80 mg tablet 80 mg PO QPM 01/24/23 06/23/23 Previous Rx's Medication Instructions Recorded ondansetron 4 mg disintegrating 4 mg PO Q6H PRN nausea and 01/24/23 tablet vomiting #20 tabs ondansetron 4 mg disintegrating 4 mg PO Q8H PRN nausea and 06/23/23 tablet vomiting 4 days #14 tabs Allergies Allergy/AdvReac Type Severity Reaction Status Date / Time Penicillins Allergy Severe Verified 06/21/23 15:43 pneumonia shot AdvReac Intermediate Uncoded 06/21/23 15:43 Review of Systems ROS Constitutional Reports: fatigue; Denies: fever or chills Ears, nose, mouth, and throat Denies: throat pain or neck pain Cardiovascular Denies: chest pain Respiratory Reports: shortness of breath and cough Gastrointestinal Reports: nausea and vomiting; Denies: abdominal pain or diarrhea Genitourinary Denies: painful urination or urinary frequency Musculoskeletal Denies: back pain or neck pain Integumentary/Breast Denies: rash Neurological Denies: headache PFSH PFSH Medical History (Updated 06/23/23 @ 16:49 by Hollie Cespedes) COPD (chronic obstructive pulmonary disease) ?J44.9 - Chronic obstructive pulmonary disease, unspecified (ICD-10) Hypercholesterolemia ?E78.00 - Pure hypercholesterolemia, unspecified (ICD-10) Social History Smoking status: Current every day smoker Exam Constitutional Vital Signs, click to edit/add: Last Vital Signs Temp 97.5 F L 06/23/23 14:26 Pulse 81 06/23/23 14:26 Resp 24 06/23/23 14:26 BP 103/70 06/23/23 17:01 Pulse Ox 97 06/23/23 17:02 O2 Del Method Room Air 06/23/23 14:26 Common normals: no apparent distress and oriented x3 General appearance: cooperative; not ill appearing [facility] Mouth: oral and palatal mucosa normal, lip normal and tongue normal Eye Common normals: conjunctivae normal and no scleral icterus Neck & C-Spine Common normals: supple Chest Chest: symmetrical chest wall rise Respiratory Common normals: normal respiratory effort Effort & inspection: able to speak in complete sentences Auscultation: diminished lung sounds GI Common normals: Normal to inspection, nondistended, normoactive bowel sounds present, soft to palpation and non-tender Neuro Common normals: oriented x3 Sensorium/orientation: awake and alert Course Vital Signs Vital signs: Vital Signs Temperature 97.5 F L 06/23/23 14:26 Pulse Rate 81 06/23/23 14:26 Respiratory Rate 24 06/23/23 14:26 Blood Pressure 134/75 06/23/23 14:26 Pulse Oximetry 95 06/23/23 14:26 Oxygen Delivery Method Room Air 06/23/23 14:26 Temperature 97.5 F L 06/23/23 14:26 Pulse Rate 81 06/23/23 14:26 Respiratory Rate 24 06/23/23 14:26 Blood Pressure 103/70 06/23/23 17:01 Pulse Oximetry 97 06/23/23 17:02 Oxygen Delivery Method Room Air 06/23/23 14:26 MDM - Nausea/Vomiting/Diarrhea MDM Narrative Medical decision making narrative: He reported feeling better here after the IV Zofran and solumedrol. Imaging was negative for acute findings. Urine culture is pending. He was comfortable being discharged home. A prescription was provided for Zofran. Follow up with pcp for a recheck, further evaluation and treatment. Return precautions were discussed. Medical Records Attestation: I reviewed the patient's medical records. Lab Data Attestation: I reviewed the patient's lab results. Labs: Lab Results 06/23/23 06/23/23 06/23/23 Range/Units 13:52 14:52 16:07 WBC 4.1 (4.0-11.0) 10^3/uL RBC 3.79 L (4.70-6.10) 10^6/uL Hgb 11.8 L (14.0-18.0) g/dL Hct 34.4 L (42.0-54.0) % MCV 90.8 (80.0-94.0) fL MCH 31.1 (25.9-34.0) pg MCHC 34.3 (29.9-35.2) g/dL RDW 12.4 (11.0-15.0) % Plt Count 169 (150-450) 10^3/uL MPV 9.0 L (9.5-13.5) fL Neut % (Auto) 52.6 (43.0-75.0) % Lymph % (Auto) 29.8 (20.5-60.0) % Richardson % (Auto) 11.6 (1.7-12.0) % Eos % (Auto) 5.3 (0.9-7.0) % Baso % (Auto) 0.5 (0.2-2.0) % Neut # (Auto) 2.2 (1.4-6.5) 10^3/uL Lymph # (Auto) 1.2 (1.2-3.8) 10^3/uL Richardson # (Auto) 0.5 (0.3-0.8) 10^3/uL Eos # (Auto) 0.2 (0.0-0.7) 10^3/uL Baso # (Auto) 0.0 (0.0-0.1) 10^3/uL Abs Immat Gran (auto) 0.01 (0.00-0.03) 10^3/uL Imm/Tot Granulo (auto) 0.2 (0.0-0.5) % Sodium 139 (136-145) mmol/L Potassium 4.3 (3.5-5.1) mmol/L Chloride 104 (98-107) mmol/L Carbon Dioxide 23.8 (21.0-32.0) mmol/L Anion Gap 15.5 BUN 22.0 H (7.0-18.0) mg/dL Creatinine 1.52 H (0.70-1.30) mg/dL Est GFR ( Amer) 56 L (>=60) Est GFR (Non-Af Amer) 47 L (>=60) BUN/Creatinine Ratio 14.5 Glucose 107 H (74-106) mg/dL Calcium 8.5 (8.5-10.1) mg/dL Total Bilirubin 0.4 (0.2-1.0) mg/dL AST 24 (15-37) U/L ALT 40 (16-63) U/L Alkaline Phosphatase 79 (46-116) U/L Total Protein 7.1 (6.4-8.2) g/dL Albumin 3.5 (3.4-5.0) g/dL Globulin 3.6 g/dL Albumin/Globulin Ratio 1.0 Lipase 98.0 H (16.0-77.0) U/L Urine Color Lt. yellow (YELLOW) Urine Clarity Clear (CLEAR) Urine pH 8.0 (5.0-9.0) Ur Specific [place] 1.015 (1.005-1.025) Urine Protein Negative (NEG/TRACE) mg/dL Urine Glucose (UA) Negative (NEGATIVE) mg/dL Urine Ketones Negative (NEGATIVE) mg/dL Urine Occult Blood Negative (NEGATIVE) Urine Nitrite Negative (NEGATIVE) Urine Bilirubin Negative (NEGATIVE) Urine Urobilinogen 0.2 (0.2-1.0) EU/dL Ur Leukocyte Esterase Small A (NEGATIVE) Urine RBC 0-2 (0-2) #/HPF Urine WBC 5-10 A (NONE SEEN) #/HPF Ur Squamous Epith Cells Few A (NONE/RARE) #/LPF Urine Crystals None seen (None Seen) #/HPF Urine Bacteria Trace A (NONE SEEN) #/HPF Urine Casts None seen (NONE SEEN) #/LPF Urine Mucus None seen (NONE SEEN) Ur Culture Indicated? Yes SARS-CoV-2 (PCR) Negative (NEGATIVE) Influenza Type A Ag Negative Influenza Type B Ag Negative Imaging Data Chest x-ray: Attestation: I have reviewed the pertinent imaging results. Radiologist's impression: Procedure: XR chest 1V EXAMINATION: XR chest 1V HISTORY: Cough COMPARISON: Portable chest 07/09/2022 TECHNIQUE: Portable chest FINDINGS: The lung parenchyma is free of consolidation or infiltrate. Chronic bibasilar scarring. No pneumothorax or pleural effusion. The cardiac, mediastinal and hilar contours are normal. The visualized osseous structures exhibit no gross abnormality. XR/XR chest 1V IMPRESSION: No acute cardiopulmonary abnormality. Electronically authenticated by: TEE LEWIS Date: 06/23/2023 15:27 Discharge Plan Discharge Chief Complaint: Nausea/Vomiting/Diarrhea Clinical Impression: History of COPD, Nausea Patient Disposition: Home, Self-Care Time of Disposition Decision: 16:48 Condition: Good Mode of Transportation: Private Vehicle Prescriptions / Home Meds: New ondansetron 4 mg tablet,disintegrating 4 mg PO Q8H PRN (Reason: nausea and vomiting) 4 Days Qty: 14 0RF No Action albuterol sulfate 90 mcg/actuation HFA aerosol inhaler 1 puff INHALATION Q4H PRN (Reason: shortness of breath or wheezing) alprazolam 0.5 mg tablet 0.25 mg PO BID PRN (Reason: anxiety) aspirin 81 mg tablet,chewable 1 tab PO DAILY atorvastatin 80 mg tablet 80 mg PO QPM ondansetron 4 mg tablet,disintegrating 4 mg PO Q6H PRN (Reason: nausea and vomiting) Qty: 20 0RF Instructions: Acute Nausea and Vomiting (ED) Stand Alone Forms: Portal Instructions Referrals: Cielo Devries MD [Primary Care Provider] - 06/24/23 Discharge Date/Time: 06/23/23 17:14
[2023-06-23] MEDS: ONDANSETRON PF 4 MG/2 ML VIAL IV (14:55)
[2023-06-23] MEDS: METHYLPREDNISOLONE SOD SUCC PF 125 MG/2 ML VIAL IVP (14:55)
[2023-06-23 14:59] LABS: Basophils Percent Auto 0.5 % (0.2-2.0); Eosinophils Absolute Auto 0.2 10^3/uL (0.0-0.7); Eosinophils Percent Auto 5.3 % (0.9-7.0); Hematocrit 34.4 % (42.0-54.0); Hemoglobin 11.8 g/dL (14.0-18.0); Immature Granulocytes Abs Auto 0.01 10^3/uL (0.00-0.03); Immature Granulocytes Pct Auto 0.2 % (0.0-0.5); Lymphocytes Absolute Auto 1.2 10^3/uL (1.2-3.8); Lymphocytes Percent Auto 29.8 % (20.5-60.0); Mean Corpuscular HGB Conc 34.3 g/dL (29.9-35.2); Mean Corpuscular Hemoglobin 31.1 pg (25.9-34.0); Mean Corpuscular Volume 90.8 fL (80.0-94.0); Monocytes Absolute Auto 0.5 10^3/uL (0.3-0.8); Monocytes Percent Auto 11.6 % (1.7-12.0); Neutrophils Absolute Auto 2.2 10^3/uL (1.4-6.5); Neutrophils Percent Auto 52.6 % (43.0-75.0); Platelet Count 169 10^3/uL (150-450); Red Blood Count 3.79 10^6/uL (4.70-6.10); Red Cell Distribution Width 12.4 % (11.0-15.0); White Blood Count 4.1 10^3/uL (4.0-11.0)
[2023-06-23 15:19] LABS: Alanine Aminotransferase 40 U/L (16-63); Albumin Level 3.5 g/dL (3.4-5.0); Alkaline Phosphatase 79 U/L (46-116); Anion Gap 15.5; Aspartate Amino Transferase 24 U/L (15-37); BUN Creatinine Ratio 14.5; Bilirubin Total 0.4 mg/dL (0.2-1.0); Calcium 8.5 mg/dL (8.5-10.1); Carbon Dioxide 23.8 mmol/L (21.0-32.0); Chloride 104 mmol/L (98-107); Estimated GFR (African America 56 (>=60); Estimated GFR (Non-African Ame 47 (>=60); Globulin 3.6 g/dL; Glucose 107 mg/dL (74-106); Potassium 4.3 mmol/L (3.5-5.1); Sodium 139 mmol/L (136-145); Total Protein 7.1 g/dL (6.4-8.2)
[2023-06-23 15:33] LABS: SARS-CoV-2 Ag NEGATIVE (NEGATIVE)
[2023-06-23 15:33] LABS: Influenza Virus A Antigen Negative; Influenza Virus B Antigen Negative; Internal Control Within Normal Limits
[2023-06-23 16:16] LABS: Bilirubin Urine NEGATIVE (NEGATIVE); Blood Urine NEGATIVE (NEGATIVE); Clarity Urine CLEAR (CLEAR); Color Urine LT. YELLOW (YELLOW); Glucose Urine UA NEGATIVE (NEGATIVE); Ketones Urine NEGATIVE (NEGATIVE); Leukocyte Esterase Urine SMALL (NEGATIVE); Nitrite Urine NEGATIVE (NEGATIVE); Protein Urine NEGATIVE (NEG/TRACE); Specific Gravity Urine 1.015 (1.005-1.025); Urobilinogen Urine 0.2 EU/dL (0.2-1.0)
[2023-06-23 16:21] LABS: Urine Microscopic Indicated YES
[2023-06-23 16:31] LABS: RBC Urine 0-2 #/HPF (0-2)
[2023-06-23 16:32] LABS: Bacteria Urine TRACE #/HPF (NONE SEEN); Cast Seen? NONE SEEN #/LPF (NONE SEEN); Crystals Seen? None Seen #/HPF (None Seen); Mucus Urine NONE SEEN (NONE SEEN); Squamous Epithelial Cell Urine FEW #/LPF (NONE/RARE); Urine Culture Indicated YES
[2023-06-24 15:04] LABS: SARS-CoV-2 NAA NOT DETECTED (NOT DETECTE)
== END 2023-06-23 17:14 | disposition home or self-care (01) ==
PROVIDERS: Nurse Practitioner Family; Emergency Provider Emergency Medicine; PCP Family Medicine
DX: R11.0 Nausea (principal); J44.9 Chronic obstructive pulmonary disease, unspecified; E78.00 Pure hypercholesterolemia, unspecified; F17.210 Nicotine dependence, cigarettes, uncomplicated; Z20.822 Contact with and (suspected) exposure to COVID-19; Z79.899 Other long term (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; Z79.82 Long term (current) use of aspirin
CPT/HCPCS: 36415; 71045; 80053; 81001; 83690; 85025; 87086; 87635; 87798; 87804; 87811; 96374; 96375; 99285; J2930

== ENCOUNTER 2023-06-28 19:50 | Emergency (ER) | payer OTHER, SELFPAY ==
[2023-06-28 19:54] VITALS: BP 125/90; PULSE 102; RESP 22; TEMP 36.4; O2SAT 97; BMI 35.5
--- NOTE | 2023-06-28 20:05 | ED.URI1 ---
HPI - URI/Sore Throat General Chief Complaint: Upper Respiratory Infection Stated Complaint: HAS COLD AND COUGH Time Seen by Provider: 06/28/23 19:51 Source: patient Limitations: no limitations History of Present Illness HPI Narrative: Patient is a 63-year-old male with a history of COPD who returns to the emergency department for cough and congestion. Patient was seen in this emergency department twice last week, he had unremarkable labs, unremarkable respiratory swabs and chest x-ray. He states he was discharged home with medication for nausea as he believed he was dehydrated at that time. He is able to eat and drink without difficulty currently. He has had no fevers, vomiting. He states he has a history of getting bronchitis every year and this feels the same. He states he is concerned because he has developed pneumonia in the past and wants to prevent having to be hospitalized. He states he has not been on any recent antibiotics or steroids. He does not complain of chest pain, he feels mildly short of breath, he has diffuse bodyaches with hot and cold chills, nasal congestion and diarrhea. He was negative for COVID, influenza on his most recent visit. Related Data Home Medications Medication Instructions Recorded Confirmed albuterol sulfate 90 mcg/actuation 1 puff inhalation Q4H PRN 01/24/23 06/23/23 aerosol inhaler shortness of breath or wheezing alprazolam 0.5 mg tablet 0.25 mg PO BID PRN anxiety 01/24/23 06/23/23 aspirin 81 mg chewable tablet 1 tab PO DAILY 01/24/23 06/23/23 atorvastatin 80 mg tablet 80 mg PO QPM 01/24/23 06/23/23 Previous Rx's Medication Instructions Recorded ondansetron 4 mg disintegrating 4 mg PO Q6H PRN nausea and 01/24/23 tablet vomiting #20 tabs ondansetron 4 mg disintegrating 4 mg PO Q8H PRN nausea and 06/23/23 tablet vomiting 4 days #14 tabs [id number]-kydnwvqfvmrdvfl-[id number] 10 ml PO Q6H PRN cold symptoms 06/28/23 2 mg-30 mg-10 mg/5 mL oral syrup #200 mL (Bromfed DM) doxycycline hyclate 100 mg tablet 100 mg PO BID 7 days #14 tabs 06/28/23 methylprednisolone 4 mg tablets in See Rx Instructions .Route 06/28/23 a dose pack (Medrol (Maury)) .COMPLEX #21 ea Allergies Allergy/AdvReac Type Severity Reaction Status Date / Time Penicillins Allergy Severe Verified 06/28/23 19:53 pneumonia shot AdvReac Intermediate Uncoded 06/28/23 19:53 Review of Systems ROS Constitutional Reports: chills and fatigue; Denies: fever Ears, nose, mouth, and throat Reports: nasal congestion; Denies: throat pain Cardiovascular Denies: chest pain Respiratory Reports: shortness of breath, cough, change in phlegm color and chest congestion; Denies: coughing up blood Gastrointestinal Reports: diarrhea; Denies: nausea or vomiting Genitourinary Denies: painful urination Musculoskeletal Denies: back pain Integumentary/Breast Denies: rash Neurological Denies: headache [facility] Medical History (Updated 06/28/23 @ 20:58 by DUSTY Jane) Hypercholesterolemia ?E78.00 - Pure hypercholesterolemia, unspecified (ICD-10) COPD (chronic obstructive pulmonary disease) ?J44.9 - Chronic obstructive pulmonary disease, unspecified (ICD-10) Social History Smoking status: Current some day smoker Exam Narrative Exam Narrative: Gen.: Awake, alert, in no distress Head: Normocephalic, atraumatic ENT: Moist mucous membranes Respiratory: No respiratory distress, speaks in full sentences, harsh cough noted with no wheezing or rhonchi Cardio: Regular rate and rhythm Extremities: Moves extremities equally, no pedal edema Psych: Normal mood and affect Neuro: No focal neuro deficit Skin: Warm, dry, intact Constitutional Vital Signs, click to edit/add: Last Vital Signs Temp 97.6 F 06/28/23 19:54 Pulse 72 06/28/23 20:23 Resp 18 06/28/23 20:23 BP 125/90 06/28/23 19:54 Pulse Ox 96 06/28/23 20:23 O2 Del Method Room Air 06/28/23 20:23 Course Vital Signs Vital signs: Vital Signs Temperature 97.6 F 06/28/23 19:54 Pulse Rate 102 H 06/28/23 19:54 Respiratory Rate 22 06/28/23 19:54 Blood Pressure 125/90 06/28/23 19:54 Pulse Oximetry 97 06/28/23 19:54 Oxygen Delivery Method Room Air 06/28/23 19:54 Temperature 97.6 F 06/28/23 19:54 Pulse Rate 72 06/28/23 20:23 Respiratory Rate 18 06/28/23 20:23 Blood Pressure 125/90 06/28/23 19:54 Pulse Oximetry 96 06/28/23 20:23 Oxygen Delivery Method Room Air 06/28/23 20:23 MDM - URI/Sore Throat MDM Narrative Medical decision making narrative: Patient with no signs in the emergency department, he is given a breathing treatment and chest x-ray shows no development of pneumonia. Patient will be treated for upper respiratory infection/bronchitis with doxycycline, Bromfed-DM, Medrol Dosepak. First dose is given in the ER. Follow-up with PCP and return to the ER if symptoms change or worsen. Medical Records Attestation: I reviewed the patient's medical records. Imaging Data Chest x-ray: Attestation: I have reviewed the pertinent imaging results. Radiologist's impression: Procedure: XR chest 1V EXAM: XR chest 1V HISTORY: Cough COMPARISON: 06-23-2023 FINDINGS: Frontal radiograph of the chest was obtained. No focal consolidation, pleural effusion or pneumothorax. Cardiomediastinal silhouette is within normal limits. No acute osseous abnormality. IMPRESSION: No focal consolidation, pleural effusion or pneumothorax. Electronically authenticated by: MIRYAM ANGELO Date: 06/28/2023 20:43 Discharge Plan Discharge Chief Complaint: Upper Respiratory Infection Clinical Impression: Upper respiratory infection Patient Disposition: Home, Self-Care Time of Disposition Decision: 20:57 Condition: Good Prescriptions / Home Meds: New dljivmavyrhsemp-uoakfugzy-VV [Bromfed DM] 2-30-10 mg/5 mL syrup 10 ml PO Q6H PRN (Reason: cold symptoms) Qty: 200 0RF doxycycline hyclate 100 mg tablet 100 mg PO BID 7 Days Qty: 14 0RF methylprednisolone [Medrol (Maury)] 4 mg tablets,dose pack See Rx Instructions .ROUTE .COMPLEX Qty: 21 0RF Rx Instructions: Taper as directed No Action albuterol sulfate 90 mcg/actuation HFA aerosol inhaler 1 puff INHALATION Q4H PRN (Reason: shortness of breath or wheezing) alprazolam 0.5 mg tablet 0.25 mg PO BID PRN (Reason: anxiety) aspirin 81 mg tablet,chewable 1 tab PO DAILY atorvastatin 80 mg tablet 80 mg PO QPM ondansetron 4 mg tablet,disintegrating 4 mg PO Q6H PRN (Reason: nausea and vomiting) Qty: 20 0RF ondansetron 4 mg tablet,disintegrating 4 mg PO Q8H PRN (Reason: nausea and vomiting) 4 Days Qty: 14 0RF Instructions: Upper Respiratory Infection (ED) Stand Alone Forms: Portal Instructions Referrals: Cielo Devries MD [Primary Care Provider] - 1 week Discharge Date/Time: 06/28/23 21:33
--- NOTE | 2023-06-28 20:10 | XR_ITS ---
[address] [address] Patient Name: HECTOR HIGHTOWER MRN: [id number] date: 1960 Sex: M Assigned Patient Location: ER Current Patient Location: ED.MAIN Accession/Order Number: [id number] Exam Date: 06/28/2023 20:10 Report Date: 06/28/2023 20:43 At the request of: SHERRY MCCOY Procedure: XR chest 1V EXAM: XR chest 1V HISTORY: Cough COMPARISON: 06-23-2023 FINDINGS: Frontal radiograph of the chest was obtained. No focal consolidation, pleural effusion or pneumothorax. Cardiomediastinal silhouette is within normal limits. No acute osseous abnormality. XR/XR chest 1V IMPRESSION: No focal consolidation, pleural effusion or pneumothorax. Electronically authenticated by: MIRYAM ANGELO Date: 06/28/2023 20:43
[2023-06-28] MEDS: PREDNISONE 20 MG TABLET 60 MG PO (20:13)
[2023-06-28] MEDS: DOXYCYCLINE MONOHYDRATE 100 MG CAPSULE PO (20:13)
[2023-06-28 20:23] VITALS: PULSE 72; RESP 18; O2SAT 96
[2023-06-28] MEDS: ALBUTEROL SULFATE 2.5 MG/3 ML VIAL NEB IH (20:23)
== END 2023-06-28 21:33 | disposition home or self-care (01) ==
PROVIDERS: Emergency Provider Internal Medicine; PCP Family Medicine
DX: J06.9 Acute upper respiratory infection, unspecified (principal); Z87.01 Personal history of pneumonia (recurrent); J44.9 Chronic obstructive pulmonary disease, unspecified; R06.02 Shortness of breath; Z79.82 Long term (current) use of aspirin; E78.00 Pure hypercholesterolemia, unspecified; Z72.0 Tobacco use
CPT/HCPCS: 71045; 94640; 99283

== ENCOUNTER 2023-07-15 13:06 | Outpatient (OUT) | payer OTHER, SELFPAY ==
--- NOTE | 2023-07-15 13:08 | US_ITS ---
The [address] [address] Patient Name: HECTOR HIGHTOWER MRN: [id number] date: 1960 Sex: M Assigned Patient Location: [place] Current Patient Location: Accession/Order Number: [id number] Exam Date: 07/15/2023 13:15 Report Date: 07/16/2023 06:34 At the request of: BROCK MODI Procedure: US abdominal aortic aneurysm EXAM: US abdominal aortic aneurysm HISTORY: abdominal aortic aneurysm without rupture I71.40. TECHNIQUE: Ultrasound was performed of the abdominal aorta. COMPARISON: None. FINDINGS: AORTA: Abnormal dilation of distal abdominal aorta, 5.2 x 5.0 cm. OTHER: Aneurysmal dilation of common iliac arteries, 2.1 cm bilaterally. US/US abdominal aortic aneurysm IMPRESSION: 1. Marked aneurysmal dilation of distal abdominal aorta, 5.2 cm (4.7 cm on 07/24/2021). Electronically authenticated by: JEFF DANIELLE Date: 07/16/2023 06:34
--- OUTSIDE RECORDS SUMMARY | 2023-07-15 13:09 | XMS_ITS | CCD ---
Author Name Unknown Address [address] [place] [address] Organization [facility] Care Team Providers [employer] Trimmer Hand Name Role Phone DO Wagner Marrufo Attending Provider [phone] Brock Modi Unavailable Wagner Marrufo Unavailable DO Wagner Marrufo Attending Provider [phone] MD Brock Modi Primary Care Provider [phone] MD Janes Dentq Admit Provider [phone] MD Barbara Rivero Attending Provider [phone] Brock Modi Unavailable Unavailable Unavailable Adi Campos Unavailable ZELALEM Faustin Attending Provider MD Adi Campos Attending Provider [phone] CAR LIGHT Attending Unavailable KULDEEP, DR [...] MODI, DR BROCK Urbano Primary Care Unavailable LONNIE, DR ARLIN Simpson Consulting Unavailable LONNIE, DR ARLIN Simpson Attending Unavailable LONNIE, DR ARLIN Simpson Admitting Unavailable MODI, DR BROCK Urbano Primary Care Unavailable AHADÁN, CYNTHIA Consulting Unavailable LONNIE, DR ARLIN Simpson Consulting Unavailable LONNIE, DR [...] Lea ailsobeida Webber, Dr. Alok Gonzalez Attending Leamd hernandez Webber, Dr. Alok Gonzalez Referring Ricardo Modi, Dr. Brock Case Primary Care Lea ailsobeida Allergies Allergy Classification Reported Allergen(s) Allergy Type Date of Onset Reaction(s) Facility (20 sources) Ciprofloxacin Drug Allergy Nausea & Blurred vision, Comment:nausea and blurred vision [facility] Other (20 sources) Substance with penicillin structure and antibacterial mechanism of action (substance) Drug allergy Edema, Unknown [facility] Other (20 sources) Pneumococcal 7-Zulma Conj Vacc Drug allergy undefined, Comment:pneumonoco ccal 23 [facility] Other (13 sources) Penicillins; Translations: [Penicillins] Propensity to adverse reactions 013 Gastrointestinal Upset, [facility] (4 sources) Pneumococcal vaccine; Translations: [pneumococcal vaccine] Drug Allergy [address] [facility] (8 sources) Pneumococcal vaccine; Translations: [Pneumococcal Vaccines] Drug Allergy [facility] 250 DO Work Phone: (2 sources) Penicillin Drug Allergy 016 Unknown [employer] Other (2 sources) patient allergy list reviewed by nurse or physicia Propensity to adverse reactions 016 Comment:Done [facility] Other (2 sources) Allergies Reconciled Propensity to adverse reactions Unknown [employer] Other Medications Current Medications Medication Drug Class(es) Dates Sig (Normalized) Sig (Original) acetaminophen 325 mg oral tablet (3 sources) Start: 10-10-2022 take 2 tablets by mouth every six hours Acetaminophen (Tylenol) 325 mg Tablet Active 650 MG PO Q6H October 10, 2022 12:00am [facility] - (5 sources) Start: 07-30-2022 [facility] - as directed Jul, Active [id number] 200 actuat albuterol 0.09 mg/actuat metered dose [...] Start: 11-12-2022 take [address] [facility] every twenty-four hours predniSONE 20 MG [...] ventricular tachycardia; Translations: [Ventricular tachycardia seen on traffic monitor specialist] 10-11-2022 Chronic Cardiac dysrhythmias (4 sources) Sinus [...] Coronary arteriosclerosis; Translations: [Atherosclerotic heart disease of [place] coronary artery without angina pectoris] Onset: 10-28-2022 [...] 03-16-2019 Chronic Other aftercare (1 source) Other senior living (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; Translations: [OTH [facility]DC CURRENT DRUG THERAPY] Onset: 10-13-2022 Episodic Other [...] Results Test Name Value Interpretation Reference Range Facility Office Visit (Cardiology)on 12-24-2022 Follow-up visit Diagnoses/Problems Assessed Coronary artery disease involving [place] coronary artery of [place] heart without angina pectoris (414.01) (I25.10) Preoperative [...] we can help. You may also call [phone] for free resources and assistance.; Status:Complete - [...] December. 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 Based on current guidelines and most recent literature, this is an appropriate indication to withdraw antiplatelet therapy and proceed with urgent endobronchial biopsy for diagnostic purposes, notably his [place] stents that were recently placed have have [...] MG Sublingu (more content not included)... Normal [employer] Tobacco Screening.on 023 Fall risk assessment c) Not medically indicated [facility] 250 DO Work Phone: Tobacco use status CPHS a) Yes [facility] DO Work Phone: Tobacco Screening. Yes [facility] y 250 DO Work Phone: CT chest w ann-marie 11-03-2022 CT chest w [facility] Main [address] [address] [address] Scan Report Signed Patient: Hector Gaspar SR MR#: [id number] : 1960 Acct:[id number] Age/Sex: 62 / M ADM Date: 11/03/22 Loc: CT Room: Type: [facility] Attending Dr: Adi Campos MD Copies to: [...] evaluation. Impression dictated by: Parrish Layton Jr., D.O.11/03/2022 2:03 PM Dictation Location: [place] [address] Transcribed By: [facility] 11/03/22 1403 Dictated By: Parrish Layton Jr, DO 11/03/22 1358 Signed By: 11/03/22 140 [facility] Cardiovasc Arrhythmia Result son 11-02-2022 Cardiovasc Arrhythmia Results Reason For Visit Reason for Visit: Holter Monitor: HECTOR is here for the application of a 48 hour Holter monitor. Ordering Physician: JANINE CUNHA Diagnosis: CAD SINUS PAUSE [facility] equipment agreement signed. HECTOR understands monitor is to be returned on: 11-03-22 Monitor number [id number] applied. Holter monitor returned and downloaded. Procedure [...] symptomatic Diagnosis/Problems Assessed Coronary artery disease involving [place] coronary artery of [place] heart without angina pectoris (414.01) (I25.10) Sinus pause (426.6) (I45.5) Future Appointments Date/TimeProviderSpecialt [facility] 01/19/2023 02:30 Alok Kirkland [id number] [facility] 2 Jonathan 250 DO Signatures Electronically signed by : Mallory Fan MA; Nov 02 2022 2:10PM EST (Author) Electronically signed by : Mohsen Gonsalves MD; Nov 08 2022 5:34PM EST (Author) Normal [employer] Basic Metabolic Panelon 04-0 Anion gap [Moles/Vol] 11.6 mmol/L Normal 6.0-15.0 [facility] Comment on above: Order Comment: PT NO T FASTING Performed By: #### C MP, MG, HS TROP, A1C WTH eA, LIPID, CBC #### [facility] [address] [place] [address] [place] Calcium [Mass/Vol] 9.5 mg/dL Normal 8.6-10.3 [facility] Comment on above: Order Comment: PT NO T FASTING Result Comment: PERF ORMED BY: [place] [id number] PATHOLOGIST AUTO DESIGN CHECKER JANETTE DE LA FUENTE M.D. Performed By: #### C MP, MG, HS TROP, A1C WTH eA, LIPID, CBC #### [place] [address] [place] Chloride [Moles/Vol] 107 mmol/L Normal 98-107 [facility] Comment on above: Order Comment: PT NO T FASTING Performed By: #### C MP, MG, HS TROP, A1C WTH eA, LIPID, CBC #### [place] [address] [place] CO2 [Moles/Vol] 25.8 mmol/L Normal 21.0-31.0 [facility] Comment on above: Order Comment: PT NO T FASTING Performed By: #### C MP, MG, HS TROP, A1C WTH eA, LIPID, CBC #### [place] [address] [place] Creatinine [Mass/Vol] 1.16 mg/dL Normal 0.70-1.30 [facility] Comment on above: Order Comment: PT NO T FASTING Performed By: #### C MP, MG, HS TROP, A1C WTH eA, LIPID, CBC #### [place] [address] [place] GFR/1.73 sq M.predicted MDRD (S/P/Bld) [Vol rate/Area] mL/min/{1.73_m2} [facility] Comment on above: Order Comment: PT NO T FASTING Performed By: #### C MP, MG, HS TROP, A1C WTH eA, LIPID, CBC #### [facility] [address] [place] [address] [place] Glucose [Mass/Vol] 100 mg/dL Normal 70-100 [facility] Comment on above: Order Comment: PT NO T FASTING Result Comment: [facility] Glucose Reference Range is dependent on time and content of last meal. Glucose of more than 200 mg/dL in a nonstressed, ambulatory subject supports the diagnosis of Diabetes Mellitus. ADA recommended reference range Performed By: #### C MP, MG, HS TROP, A1C WTH eA, LIPID, CBC #### [facility] [address] Potassium [Moles/Vol] 4.4 mmol/L Normal 3.5-5.1 [facility] Comment on above: Order Comment: PT NO T FASTING Performed By: #### C MP, MG, HS TROP, A1C WTH eA, LIPID, CBC #### [facility] [address] [place] [address] [place] Sodium [Moles/Vol] 140 mmol/L Normal 136-145 [facility] Comment on above: Order Comment: PT NO T FASTING Performed By: #### C MP, MG, HS TROP, A1C WTH eA, LIPID, CBC #### [facility] [address] [place] [address] [place] Urea nitrogen [Mass/Vol] 27 mg/dL High 7-25 [facility] Comment on above: Order Comment: PT NO T FASTING Performed By: #### C MP, MG, HS TROP, A1C WTH eA, LIPID, CBC #### [facility] [address] Calcium [Mass/volume] in Ser um or PlasmaOrdered By: Janine Cunha on 10-28-2022 Calcium [Mass/Vol] 9.5 mg/dL 8.6-10.3 [facility] Carbon dioxide, total [Moles /volume] in Serum or PlasmaOrdered By: Janine Cunha on 10-28-2022 CO2 [Moles/Vol] 25.8 mmol/L 21.0-31.0 [facility] Chloride [Moles/volume] in S lisa or PlasmaOrdered By: Janine Cunha on 10-28-2022 Chloride [Moles/Vol] 107 mmol/L 98-107 [facility] Creatinine [Mass/volume] in Serum or PlasmaOrdered By: Janine Cunha on 10-28-2022 Creatinine [Mass/Vol] 1.16 mg/dL 0.70-1.30 [facility] Glucose [Mass/volume] in Ser um or PlasmaOrdered By: Janine Cunha on 10-28-2022 Glucose [Mass/Vol] 100 mg/dL 70-100 [facility] Comment on above: ADA recommended refe rence rangeRandom Glucose Reference Range is dependent on time and content of last meal. Glucose of more than 200 mg/dL in a nonstressed, ambulatory subject supports the diagnosis of Diabetes Mellitus. No Panel InformationOrdered By: Janine Cunha on 10-28-2022 Estimated GFR (CKD-EPI) > 60.0 mL/Min [facility] Creatinine Clearance (Chem N/A [facility] No Panel Informationon 10-28 > 60.0 Normal [facility] [employer] 600 DO Work Phone: 11.6\S\11.6 Normal 6.0-15.0 [facility] [employer] 600 DO Work Phone: [phone] 9.5\S\9.5 Normal 8.6-10.3 [facility] 600 DO Work Phone: [phone] Comment on above: PERFORMED BY:[place] [address] [place], [place] [id number] MEDICAL DIRECTORJANETTE DE LA FUENTE M.D. 25.8\S\25.8 Normal 21.0-31.0 [facility] 600 DO Work Phone: [phone] 107\S\107 Normal 98-107 [facility] 600 DO Work Phone: [phone] 4.4\S\4.4 Normal 3.5-5.1 [facility] 600 DO Work Phone: [phone] 140\S\140 Normal 136-145 [facility] [employer] 600 DO Work Phone: 1.16\S\1.16 Normal 0.70-1.30 [facility] 600 DO Work Phone: 27\S\27 above high threshold 7-25 [facility] 600 DO Work Phone: 100\S\100 Normal 70-100 [facility] 600 DO Work Phone: Comment on above: Random Glucose Refer ence Range is dependent on time and content of last meal. Glucose of more than 200 mg/dL in a nonstressed, ambulatory subject supports the diagnosis of Diabetes Mellitus. ADA recommended reference range Potassium [Moles/volume] in Serum or PlasmaOrdered By: Janine Cunha on 10-28-2022 Potassium [Moles/Vol] 4.4 mmol/L 3.5-5.1 [facility] Serum or plasma anion gap de terminationOrdered By: Janine Cunha on 10-28-2022 Anion gap [Moles/Vol] 11.6 mmol/L 6.0-15.0 [facility] Sodium [Moles/volume] in Ser um or PlasmaOrdered By: Janine Cunha on 10-28-2022 Sodium [Moles/Vol] 140 mmol/L 136-145 [facility] Urea nitrogen [Mass/volume] in Serum or PlasmaOrdered By: Janine Cunha on 10-28-2022 Urea nitrogen [Mass/Vol] 27 mg/dL 7-25 [facility] Tobacco Screening.on 023 Adult depression screening assessment No [facility] 250 DO Work Phone: Fall risk assessment a) No falls within the last year [facility] 250 DO Work Phone: Tobacco use status CPHS a) Yes [facility] y 250 DO Work Phone: Tobacco Screening. Yes [facility] 250 DO Work Phone: B-Type Natriuretic Peptideon 10-12-2022 Natriuretic peptide B (Bld) [Mass/Vol] 91.0 pg/mL Normal 5-100 [facility] Comment on above: Result Comment: PERF ORMED BY: [place] [address] PATHOLOGIST AUTO DESIGN CHECKER JANETTE DE LA FUENTE M.D. Performed By: #### C MP, MG, HS TROP, A1C WTH eA, LIPID, CBC #### [facility] [address] [place] [address] Basic Metabolic Panelon 03-2 -2022 Anion gap [Moles/Vol] 12.0 mmol/L Normal 6.0-15.0 [facility] Comment on above: Performed By: #### B MP, MG, BNP #### [address] Calcium [Mass/Vol] 9.0 mg/dL Normal 8.6-10.3 [facility] Comment on above: Performed By: #### B MP, MG, BNP #### [address] Chloride [Moles/Vol] 107 mmol/L Normal 98-107 [facility] Comment on above: Performed By: #### B MP, MG, BNP #### [address] CO2 [Moles/Vol] 25.2 mmol/L Normal 21.0-31.0 [facility] Comment on above: Performed By: #### B MP, MG, BNP #### [address] Creatinine [Mass/Vol] 1.09 mg/dL Normal 0.70-1.30 [facility] Comment on above: Performed By: #### B MP, MG, BNP #### [address] Creatinine Clr Calc Pharmacy 79.[address] [facility] Comment on above: Performed By: #### B MP, MG, BNP #### [place] [address] [place] GFR/1.73 sq M.predicted MDRD (S/P/Bld) [Vol rate/Area] mL/min/{1.73_m2} Normal [facility] Comment on above: Performed By: #### B MP, MG, BNP #### [facility] [address] Glucose [Mass/Vol] 100 mg/dL Normal 74-109 [facility] Comment on above: Result Comment: [facility] Glucose Reference Range is dependent on time and content of last meal. Glucose of more than 200 mg/dL in a nonstressed, ambulatory subject supports the diagnosis of Diabetes Mellitus. ADA recommended reference range Performed By: #### B MP, MG, BNP #### [facility] [address] Potassium [Moles/Vol] 4.2 mmol/L Normal 3.5-5.1 [facility] Comment on above: Performed By: #### B MP, MG, BNP #### [facility] [address] Sodium [Moles/Vol] 140 mmol/L Normal 136-145 [facility] Comment on above: Performed By: #### B MP, MG, BNP #### [facility] [address] Urea nitrogen [Mass/Vol] 23 mg/dL Normal 7-25 [facility] Comment on above: Performed By: #### B MP, MG, BNP #### [facility] [address] [place] [address] [place] Calcium [Mass/volume] in Ser um or PlasmaOrdered By: Rubén Tatum on 10-12-2022 Calcium [Mass/Vol] 9.0 mg/dL 8.6-10.3 [facility] Carbon dioxide, total [Moles /volume] in Serum or PlasmaOrdered By: Rubén Tatum on 10-12-2022 CO2 [Moles/Vol] 25.2 mmol/L 21.0-31.0 [facility] Chloride [Moles/volume] in S lisa or PlasmaOrdered By: Rubén Tatum on 10-12-2022 Chloride [Moles/Vol] 107 mmol/L 98-107 [facility] Creatinine [Mass/volume] in Serum or PlasmaOrdered By: Rubén Tatum on 10-12-2022 Creatinine [Mass/Vol] 1.09 mg/dL 0.70-1.30 [facility] Glucose [Mass/volume] in Ser um or PlasmaOrdered By: Rubén Tatum on 10-12-2022 Glucose [Mass/Vol] 100 mg/dL 74-109 [facility] Comment on above: ADA recommended refe rence rangeRandom Glucose Reference Range is dependent on time and content of last meal. Glucose of more than 200 mg/dL in a nonstressed, ambulatory subject supports the diagnosis of Diabetes Mellitus. Laboratory - Chemistry and C hemistry - challengeOrdered By: Rubén Tatum on 10-12-2022 GFR/1.73 sq M.predicted MDRD (S/P/Bld) [Vol rate/Area] mL/min/{1.73_m2} [facility] Magnesiumon 10-12-2022 Magnesium [Mass/Vol] 2.2 mg/dL Normal 1.9-2.7 [facility] Comment on above: Result Comment: PERF ORMED BY: [place] [address] PATHOLOGIST AUTO DESIGN CHECKER JANETTE DE LA FUENTE M.D. Performed By: #### B MP, MG, BNP #### [address] Magnesium [Mass/volume] in S lisa or PlasmaOrdered By: Rubén Tatum on 10-12-2022 Magnesium [Mass/Vol] 2.2 mg/dL 1.9-2.7 [facility] Natriuretic peptide B [Mass/ Vol]Ordered By: Rubén Tatum on 10-12-2022 Natriuretic peptide B (Bld) [Mass/Vol] 91.0 pg/mL 5-100 [facility] No Panel InformationOrdered By: Rubén Tatum on 10-12-2022 Pharmacy Creatinine Clearance (Chem 79.69 [facility] Potassium [Moles/volume] in Serum or PlasmaOrdered By: Rubén Tatum on 10-12-2022 Potassium [Moles/Vol] 4.2 mmol/L 3.5-5.1 [facility] Serum or plasma anion gap de terminationOrdered By: Rubén Tatum on 10-12-2022 Anion gap [Moles/Vol] 12.0 mmol/L 6.0-15.0 [facility] Sodium [Moles/volume] in Ser um or PlasmaOrdered By: Rubén Tatum on 10-12-2022 Sodium [Moles/Vol] 140 mmol/L 136-145 [facility] Urea nitrogen [Mass/volume] in Serum or PlasmaOrdered By: Rubén Tatum on 10-12-2022 Urea nitrogen [Mass/Vol] 23 mg/dL 02-16 [facility] A1C with Estimated Average G tom 10-11-2022 Glucose [Mass/Vol] 120 mg/dL Normal [facility] Comment on above: Result Comment: PERF ORMED BY: [place] [address] PATHOLOGIST AUTO DESIGN CHECKER JANETTE DE LA FUENTE M.D. Performed By: #### C MP, MG, HS TROP, A1C WT eA, LIPID, CBC #### [facility] [address] HbA1c (Bld) [Mass fraction] 5.8 % High 4.3-5.6 [facility] Comment on above: Result Comment: Incr eased risk for diabetes: 5.7 - 6.4 diabetes: >6.4 glycemic control for adults with diabetes: <7.0 Performed By: #### C MP, MG, HS TROP, A1C WTH eA, LIPID, CBC #### [facility] [address] [place] [address] [place] Alanine aminotransferase [En zymatic activity/volume] in Serum or PlasmaOrdered By: Rubén Tatum on 10-11-2022 ALT [Catalytic activity/Vol] 18 U/L [facility] Albumin [Mass/volume] in Ser um or Plasma by Bromocresol green (BCG) dye binding methoOrdered By: Rubén Tatum on 10-11-2022 Albumin BCG dye [Mass/Vol] 3.9 g/dL 3.5-5.7 [facility] Alkaline phosphatase [Enzyma tic activity/volume] in Serum or PlasmaOrdered By: Rubén Tatum on 10-11-2022 ALP [Catalytic activity/Vol] 46 U/L 34-104 [facility] Aspartate aminotransferase [ Enzymatic activity/volume] in Serum or PlasmaOrdered By: Rubén Tatum on 10-11-2022 AST [Catalytic activity/Vol] 30 U/L 13-39 [facility] B-Type Natriuretic Peptideon 10-11-2022 Natriuretic peptide B (Bld) [Mass/Vol] 157.0 pg/mL High 5-100 [facility] Comment on above: Result Comment: PERF ORMED BY: [place] [address] PATHOLOGIST AUTO DESIGN CHECKER JANETTE DE LA FUENTE M.D. Performed By: #### C MP, MG, HS TROP, A1C WTH eA, LIPID, CBC #### [facility] [address] Basophils Auto (Bld) [#/Vol] Ordered By: Galo Dent on 10-11-2022 Basophils (Bld) [#/Vol] 0.0 10*3/uL 0.0-0.2 [facility] Basophils/100 WBC Auto (Bld) Ordered By: Galo Dent on 10-11-2022 Basophils/100 WBC (Bld) 0.5 % . [facility] Bilirubin.total [Mass/volume ] in Serum or PlasmaOrdered By: Rubén Tatum on 10-11-2022 Bilirubin [Mass/Vol] 0.4 mg/dL 0.3-1.0 [facility] Cholesterol [Mass/volume] in Serum or PlasmaOrdered By: Rubén Tatum on 10-11-2022 Cholesterol [Mass/Vol] 221 mg/dL 140-200 [facility] Comment on above: Chol less than 200 m g/dl low riskChol 201-239 mg/dl borderline riskChol 240 mg/dl and greater high risk Cholesterol in LDL Calc [Mas s/Vol]Ordered By: Rubén Tatum on 10-11-2022 Cholesterol in LDL [Mass/Vol] 149 mg/dL 0-100 [facility] Comment on above: LDL ATP III CLASSIFI CATIONLDL less than 100 mg/dL OptimalLDL 100-129 mg/dL Near or above optimalLDL 130-159 mg/dL Borderline highLDL 160-189 mg/dL HighLDL greater than 189 mg/dL Very high Cholesterol in VLDL Calc [Ma ss/Vol]Ordered By: Rubén Tatum on 10-11-2022 Cholesterol in VLDL [Mass/Vol] 30 mg/dL [facility] Complete Blood Count Auto Di ffon 10-11-2022 Basophils (Bld) [#/Vol] 0.0 10*3/uL Normal 0.0-0.2 [facility] Comment on above: Result Comment: PERF ORMED BY: [place] [address] PATHOLOGIST AUTO DESIGN CHECKER JANETTE DE LA FUENTE M.D. Performed By: #### C MP, MG, HS TROP, A1C WTH eA, LIPID, CBC #### [address] Basophils/100 WBC (Bld) 0.5 % Normal . [facility] Comment on above: Performed By: #### C MP, MG, HS TROP, A1C WTH eA, LIPID, CBC #### [place] [address] [place] Eosinophils (Bld) [#/Vol] 0.2 10*3/uL Normal 0.0-0.45 [facility] Comment on above: Performed By: #### C MP, MG, HS TROP, A1C WTH eA, LIPID, CBC #### [place] [address] [place] Eosinophils/100 WBC (Bld) 3.7 % Normal . [facility] Comment on above: Performed By: #### C MP, MG, HS TROP, A1C WTH eA, LIPID, CBC #### [address] Erythrocyte distribution width (RBC) [Ratio] 14.9 % High 12.0-14.8 [facility] Comment on above: Performed By: #### C MP, MG, HS TROP, A1C WTH eA, LIPID, CBC #### [facility] [address] [place] [address] Hematocrit (Bld) [Volume fraction] 37.7 % Low 38.8-50.0 [facility] Comment on above: Performed By: #### C MP, MG, HS TROP, A1C WTH eA, LIPID, CBC #### [address] Hemoglobin (Bld) [Mass/Vol] 12.7 g/dL Low 13.0-17.0 [facility] Comment on above: Performed By: #### C MP, MG, HS TROP, A1C WTH eA, LIPID, CBC #### [address] Lymphocytes (Bld) [#/Vol] 1.4 10*3/uL Normal 1.00-4.8 [facility] Comment on above: Performed By: #### C MP, MG, HS TROP, A1C WTH eA, LIPID, CBC #### [address] Lymphocytes/100 WBC (Bld) 21.8 % Normal . [facility] Comment on above: Performed By: #### C MP, MG, HS TROP, A1C WTH eA, LIPID, CBC #### [address] MCH (RBC) [Entitic mass] 30.1 pg Normal 27.5-35.2 [facility] Comment on above: Performed By: #### C MP, MG, HS TROP, A1C WTH eA, LIPID, CBC #### [address] MCV (RBC) [Entitic vol] 89.4 fL Normal 83.5-101 [facility] Comment on above: Performed By: #### C MP, MG, HS TROP, A1C WTH eA, LIPID, CBC #### [address] Mean Corpuscular HGB Conc 33.7 g/dL Normal 32.5-35.6 [facility] Comment on above: Performed By: #### C MP, MG, HS TROP, A1C WTH eA, LIPID, CBC #### [facility] [address] Monocytes (Bld) [#/Vol] 0.7 10*3/uL Normal 0.0-0.8 [facility] Comment on above: Performed By: #### C MP, MG, HS TROP, A1C WTH eA, LIPID, CBC #### [facility] [address] Monocytes/100 WBC (Bld) 10.2 % Normal . [facility] Comment on above: Performed By: #### C MP, MG, HS TROP, A1C WTH eA, LIPID, CBC #### [address] Neutrophils (Bld) [#/Vol] 4.2 10*3/uL Normal 1.8-7.7 [facility] Comment on above: Performed By: #### C MP, MG, HS TROP, A1C WTH eA, LIPID, CBC #### [address] Neutrophils/100 WBC (Bld) 63.8 % Normal . [facility] Comment on above: Performed By: #### C MP, MG, HS TROP, A1C WTH eA, LIPID, CBC #### [address] NRBC% 0.1 /100{WBC} Normal 0-0.5 [facility] Comment on above: Performed By: #### C MP, MG, HS TROP, A1C WTH eA, LIPID, CBC #### [address] Platelet mean volume (Bld) [Entitic vol] 7.3 fL Normal 6.6-10.1 [facility] Comment on above: Performed By: #### C MP, MG, HS TROP, A1C WTH eA, LIPID, CBC #### [address] Platelets (Bld) [#/Vol] 203 10*3/uL Normal 150-450 [facility] Comment on above: Performed By: #### C MP, MG, HS TROP, A1C WTH eA, LIPID, CBC #### [facility] [address] RBC (Bld) [#/Vol] 4.21 10*6/uL Normal 3.90-5.60 [facility] Comment on above: Performed By: #### C MP, MG, HS TROP, A1C WTH eA, LIPID, CBC #### [facility] [address] WBC (Bld) [#/Vol] 6.6 10*3/uL Normal 4.1-10.5 [facility] Comment on above: Performed By: #### C MP, MG, HS TROP, A1C WTH eA, LIPID, CBC #### [address] Comprehensive Metabolic Pane weston 10-11-2022 Albumin [Mass/Vol] 3.9 g/dL Normal 3.5-5.7 [facility] Comment on above: Order Comment: FASTI NG Y Performed By: #### C MP, MG, HS TROP, A1C WTH eA, LIPID, CBC #### [facility] [address] [place] [address] Albumin/Globulin [Mass ratio] 1.6 {ratio} Normal [facility] Comment on above: Order Comment: FASTI NG Y Performed By: #### C MP, MG, HS TROP, A1C WTH eA, LIPID, CBC #### [facility] [address] [place] [address] ALP [Catalytic activity/Vol] 46 U/L Normal 34-104 [facility] Comment on above: Order Comment: FASTI NG Y Performed By: #### C MP, MG, HS TROP, A1C WTH eA, LIPID, CBC #### [address] ALT [Catalytic activity/Vol] 18 U/L Normal 7-52 [facility] Comment on above: Order Comment: FASTI NG Y Performed By: #### C MP, MG, HS TROP, A1C WTH eA, LIPID, CBC #### [facility] [address] Anion gap [Moles/Vol] 10.3 mmol/L Normal 6.0-15.0 [facility] Comment on above: Order Comment: FASTI NG Y Performed By: #### C MP, MG, HS TROP, A1C WTH eA, LIPID, CBC #### [facility] [address] AST [Catalytic activity/Vol] 30 U/L Normal 13-39 [facility] Comment on above: Order Comment: FASTI NG Y Performed By: #### C MP, MG, HS TROP, A1C WTH eA, LIPID, CBC #### [facility] [address] Bilirubin [Mass/Vol] 0.4 mg/dL Normal 0.3-1.0 [facility] [place] Comment on above: Order Comment: FASTI NG Y Performed By: #### C MP, MG, HS TROP, A1C WTH eA, LIPID, CBC #### [facility] [address] Calcium [Mass/Vol] 8.9 mg/dL Normal 8.6-10.3 [facility] Comment on above: Order Comment: FASTI NG Y Performed By: #### C MP, MG, HS TROP, A1C WTH eA, LIPID, CBC #### [address] Chloride [Moles/Vol] 109 mmol/L High 98-107 [facility] Comment on above: Order Comment: FASTI NG Y Performed By: #### C MP, MG, HS TROP, A1C WTH eA, LIPID, CBC #### [facility] [address] CO2 [Moles/Vol] 23.7 mmol/L Normal 21.0-31.0 [facility] Comment on above: Order Comment: FASTI NG Y Performed By: #### C MP, MG, HS TROP, A1C WTH eA, LIPID, CBC #### [address] Creatinine [Mass/Vol] 1.00 mg/dL Normal 0.70-1.30 [facility] Comment on above: Order Comment: FASTI NG Y Performed By: #### C MP, MG, HS TROP, A1C WTH eA, LIPID, CBC #### [facility] [address] Creatinine Clr Calc Pharmacy 86.86 [facility] Comment on above: Order Comment: FASTI NG Y Performed By: #### C MP, MG, HS TROP, A1C WTH eA, LIPID, CBC #### [facility] [address] GFR/1.73 sq M.predicted MDRD (S/P/Bld) [Vol rate/Area] mL/min/{1.73_m2} [facility] Comment on above: Order Comment: FASTI NG Y Performed By: #### C MP, MG, HS TROP, A1C WTH eA, LIPID, CBC #### [facility] [address] Globulin (S) [Mass/Vol] 2.5 g/dL [facility] Comment on above: Order Comment: FASTI NG Y Performed By: #### C MP, MG, HS TROP, A1C WTH eA, LIPID, CBC #### [facility] [address] Glucose [Mass/Vol] 96 mg/dL Normal 74-109 [facility] Comment on above: Order Comment: FASTI NG Y Result Comment: [place] Glucose Reference Range is dependent on time and content of last meal. Glucose of more than 200 mg/dL in a nonstressed, ambulatory subject supports the diagnosis of Diabetes Mellitus. ADA recommended reference range Performed By: #### C MP, MG, HS TROP, A1C WTH eA, LIPID, CBC #### [facility] [address] Potassium [Moles/Vol] 4.0 mmol/L Normal 3.5-5.1 [facility] Comment on above: Order Comment: FASTI NG Y Performed By: #### C MP, MG, HS TROP, A1C WTH eA, LIPID, CBC #### [facility] [address] Protein [Mass/Vol] 6.4 g/dL Normal 6.4-8.9 [facility] Comment on above: Order Comment: FASTI NG Y Performed By: #### C MP, MG, HS TROP, A1C WTH eA, LIPID, CBC #### [facility] [address] [place] [id number] [facility] Sodium [Moles/Vol] 139 mmol/L Normal 136-145 [facility] Comment on above: Order Comment: FASTI NG Y Performed By: #### C MP, MG, HS TROP, A1C WTH eA, LIPID, CBC #### [facility] [address] Urea nitrogen [Mass/Vol] 17 mg/dL Normal 7-25 [facility] Comment on above: Order Comment: FASTI NG Y Performed By: #### C MP, MG, HS TROP, A1C WTH eA, LIPID, CBC #### [facility] [address] [place] [id number] [facility] ECG 12 lead ECGon 10-11-2022 ECG 12 lead ECG [facility] [place] [address] [place] [address] Electrocardiograph Report Signed Patient: Hector Gaspar SR MR#: [id number] 187 : 1960 Acct:[id number] Age/Sex: 62 / M ADM Date: 10/10/22 Loc: Room: [address] [place] [address] Type: ADM IN Attending Dr: Barbara Rivero [...] By Edilson Cruz DO 10/[address] [facility] Eosinophils Auto (Bld) [#/Vo l]Ordered By: Galo Dent on 10-11-2022 Eosinophils (Bld) [#/Vol] 0.2 10*3/uL 0.0-0.45 [facility] Eosinophils/100 WBC Auto (Bl d)Ordered By: Galo Dent on 10-11-2022 Eosinophils/100 WBC (Bld) 3.7 % . [facility] Erythrocyte distribution wid th Auto (RBC) [Ratio]Ordered By: Galo Dent on 10-11-2022 Erythrocyte distribution width (RBC) [Ratio] 14.9 % 12.0-14.8 [facility] Globulin Calc (S) [Mass/Vol] Ordered By: Rubén Tatum on 10-11-2022 Globulin (S) [Mass/Vol] 2.5 g/dL [facility] Glucose mean value [Mass/vol ume] in Blood Estimated from glycated hemoglobinOrdered By: Galo Dent on 10-11-2022 Average glucose Estimated from glycated hemoglobin (Bld) [Mass/Vol] 120 mg/dL [facility] Hematocrit Auto (Bld) [Volum e fraction]Ordered By: Galo Dent on 10-11-2022 Hematocrit (Bld) [Volume fraction] 37.7 % 38.8-50.0 [facility] Hemoglobin A1c percentageOrd ered By: Galo Dent on 10-11-2022 HbA1c (Bld) [Mass fraction] 5.8 % 4.3-5.6 [facility] Comment on above: Increased risk for d iabetes: 5.7 - 6.4diabetes: >6.4glycemic control for adults with diabetes: <7.0 Hemoglobin [Mass/volume] in BloodOrdered By: Galo Dent on 10-11-2022 Hemoglobin (Bld) [Mass/Vol] 12.7 g/dL 13.0-17.0 [facility] - CoagulationOrde red By: Galo Dent on 10-11-2022 PT Coag (PPP) [Time] 11.3 s 9.0-12.9 [facility] Leukocytes [#/volume] correc kal for nucleated erythrocytes in Blood by Automated counOrdered By: Galo Dent on 10-11-2022 WBC corrected for nucl RBC Auto (Bld) [#/Vol] 6.6 10*3/uL 4.1-10.5 [facility] Lipid Panelon 10-11-2022 Cholesterol [Mass/Vol] 221 mg/dL High 140-200 [facility] Comment on above: Order Comment: FASTI NG Y Result Comment: Chol less than 200 mg/dl low risk Chol 201-239 mg/dl borderline risk Chol 240 mg/dl and greater high risk Performed By: #### C MP, MG, HS TROP, A1C WTH eA, LIPID, CBC #### [facility] [address] [place] [id number] [place] Cholesterol in HDL [Mass/Vol] 42 mg/dL Normal 29-71 [facility] Comment on above: Order Comment: FASTI NG Y Result Comment: HDL CHOL ATP-III CLASSIFICATION Cardiovascular Risk HDL > or equal to 60 mg/dL LOW HDL < 40 mg/dL HIGH Performed By: #### C MP, MG, HS TROP, A1C WTH eA, LIPID, CBC #### [facility] [address] [place] [address] [facility] Cholesterol.total/Chol esterol in HDL [Mass ratio] 5.3 {ratio} Normal <5.0 [facility] Comment on above: Order Comment: FASTI NG Y Result Comment: PERF ORMED BY: [facility] [address] [place] [address] PATHOLOGIST AUTO DESIGN CHECKER JANETTE DE LA FUENTE M.D. Performed By: #### C MP, MG, HS TROP, A1C WTH eA, LIPID, CBC #### [facility] [address] [place] [id number] [facility] LDL Cholesterol,Calculated 149 mg/dL High 0-100 [facility] Comment on above: Order Comment: FASTI NG Y Result Comment: LDL ATP III CLASSIFICATION LDL less than 100 mg/dL Optimal LDL 100-129 mg/dL Near or above optimal LDL 130-159 mg/dL Borderline high LDL 160-189 mg/dL High LDL greater than 189 mg/dL Very high Performed By: #### C MP, MG, HS TROP, A1C WTH eA, LIPID, CBC #### [facility] [address] Triglyceride w/Reflex 152 mg/dL High 0-149 [facility] Comment on above: Order Comment: TONIA Clinton Result Comment: TRIG ATP III CLASSIFICATION TRIG less than 150 mg/dL Normal TRIG 150-199 mg/dL Borderline high TRIG 200-500 mg/dL High TRIG greater than 500 mg/dL Very high Standard traceable to the Center for Disease Conrtrol and Prevention (CDC) test method. Performed By: #### C MP, MG, HS TROP, A1C WTH eA, LIPID, CBC #### [facility] [address] VLDL CHOLESTEROL 30 mg/dL Normal [facility] Comment on above: Order Comment: TONIA Clinton Performed By: #### C MP, MG, HS TROP, A1C WTH eA, LIPID, CBC #### [facility] [address] Lymphocytes Auto (Bld) [#/Vo l]Ordered By: Galo Dent on 10-11-2022 Lymphocytes (Bld) [#/Vol] 1.4 10*3/uL 1.00-4.8 [facility] Lymphocytes/100 WBC Auto (Bl d)Ordered By: Galo Dent on 10-11-2022 Lymphocytes/100 WBC (Bld) 21.8 % . [facility] MCH Auto (RBC) [Entitic mass ]Ordered By: Galo Dent on 10-11-2022 MCH (RBC) [Entitic mass] 30.1 pg 27.5-35.2 [facility] MCHC Auto (RBC) [Mass/Vol]Or dered By: Galo Dent on 10-11-2022 MCHC (RBC) [Mass/Vol] 33.7 g/dL 32.5-35.6 [facility] MCV Auto (RBC) [Entitic vol] Ordered By: Galo Dent on 10-11-2022 MCV (RBC) [Entitic vol] 89.4 fL 83.5-101 [facility] Magnesiumon 10-11-2022 Magnesium [Mass/Vol] 2.0 mg/dL Normal 1.9-2.7 [facility] Comment on above: Order Comment: FASTI NG Y Performed By: #### C MP, MG, HS TROP, A1C WTH eA, LIPID, CBC #### [facility] [address] Monocytes Auto (Bld) [#/Vol] Ordered By: Galo Wittmood on 10-11-2022 Monocytes (Bld) [#/Vol] 0.7 10*3/uL 0.0-0.8 [facility] Monocytes/100 WBC Auto (Bld) Ordered By: Galo Wittmood on 10-11-2022 Monocytes/100 WBC (Bld) 10.2 % . [facility] Neutrophils Auto (Bld) [#/Vo l]Ordered By: Galo Dent on 10-11-2022 Neutrophils (Bld) [#/Vol] 4.2 10*3/uL 1.8-7.7 [facility] Neutrophils/100 WBC Auto (Bl d)Ordered By: Galo Wittmood on 10-11-2022 Neutrophils/100 WBC (Bld) 63.8 % . [facility] Nucleated erythrocytes [Pres ence] in Blood by Automated countOrdered By: Galo Dent on 10-11-2022 Nucleated RBC Auto Ql (Bld) 0.1 /100{WBC} 0-0.5 [facility] Platelet mean volume Auto (B ld) [Entitic vol]Ordered By: Galo Dent on 10-11-2022 Platelet mean volume (Bld) [Entitic vol] 7.3 fL 6.6-10.1 [facility] Platelet poor plasma interna tional normalized ratio (INR) by coagulation assay (relatOrdered By: Galo Dent on 10-11-2022 INR Coag (PPP) [Relative time] 1.0 {INR} [facility] Comment on above: INR Therapeutic Rang [...] 10-11-2022 Platelets (Bld) [#/Vol] 203 10*3/uL 150-450 [facility] Protein [Mass/volume] in Ser um or PlasmaOrdered By: Rubén Tatum on 10-11-2022 Protein [Mass/Vol] 6.4 g/dL 6.4-8.9 [facility] Prothrombin Time INRon 10-11 INR Coag (PPP) [Relative time] 1.0 {INR} Normal [facility] Comment on above: Result Comment: INR [...] heart valves: 3 - 4.5 PERFORMED BY: [place] [id number] PATHOLOGIST AUTO DESIGN CHECKER JANETTE DE LA FUENTE M.D. Performed By: #### C MP, MG, HS TROP, A1C WTH eA, LIPID, CBC #### [facility] [address] PT Coag (PPP) [Time] 11.3 s Normal 9.0-12.9 [facility] Comment on above: Performed By: #### C MP, MG, HS TROP, A1C WTH eA, LIPID, CBC #### [facility] [address] RBC Auto (Bld) [#/Vol]Ordere d By: Galo Dent on 10-11-2022 RBC (Bld) [#/Vol] 4.21 10*6/uL 3.90-5.60 [facility] Serum or plasma albumin/glob ulin mass ratioOrdered By: Rubén Tatum on 10-11-2022 Albumin/Globulin [Mass ratio] 1.6 {ratio} [facility] Serum or plasma high density lipoprotein (HDL) cholesterol measurementOrdered By: Rubén Tatum on 10-11-2022 Cholesterol in HDL [Mass/Vol] 42 mg/dL 29-71 [facility] Comment on above: HDL CHOL ATP-III CLA SSIFICATION Cardiovascular RiskHDL > or equal to 60 mg/dL LOWHDL < 40 mg/dL HIGH Serum or plasma total choles terol/high density lipoprotein (HDL) cholesterol mass ratOrdered By: Rubén Tatum on 10-11-2022 Cholesterol.total/Chol esterol in HDL [Mass ratio] 5.3 {ratio} <5.0 [facility] Triglyceride [Mass/volume] i n Serum or PlasmaOrdered By: Rubén Tatum on 10-11-2022 Triglyceride [Mass/Vol] 152 mg/dL 0-149 [facility] Comment on above: TRIG ATP III CLASSIF ICATIONTRIG less than 150 mg/dL NormalTRIG 150-199 mg/dL Borderline highTRIG 200-500 mg/dL High TRIG greater than 500 mg/dL Very highStandard traceable to the Center for Disease Conrtrol and Prevention (CDC) test method. Troponin I High Sensitivityo n 10-11-2022 Troponin I High Sensitivity 3965.8 pg/mL Off scale high 0.0-20.0 [facility] Comment on above: Result Comment: Crit ical Result : Called to and read back by: HECTOR LOCO at: 10/11/2022 06:45:50 by:[id number] PERFORMED BY: [place] [address] PATHOLOGIST AUTO DESIGN CHECKER JANETTE DE LA FUENTE M.D. Performed By: #### C MP, MG, HS TROP, A1C WTH eA, LIPID, CBC #### [address] Troponin I.cardiac [Mass/vol ume] in Serum or Plasma by Detection limit <= 0.01 ng/Ordered By: Rubén Tatum on 10-11-2022 Troponin I.cardiac DL <= 0.01 ng/mL [Mass/Vol] 3965.8 pg/mL 0.0-20.0 [facility] Comment on above: Critical Result : Ca lled to and read back by: HECTOR LOCO at: 10/11/2022 06:45:50 by:[id number] WBC Auto (Bld) [#/Vol]Ordere d By: Galo Dent on 10-11-2022 WBC (Bld) [#/Vol] 6.6 10*3/uL 4.1-10.5 [facility] XR chest 2V*on 10-11-2022 XR chest 2V* [facility] [place] [address] XRay Report Signed Patient: Hector Gaspar SR MR#: [id number] 187 : 1960 Acct:[id number] Age/Sex: 62 / M ADM Date: 10/10/22 Loc: Room: [address] [place] [address] Type: ADM IN Attending Dr: Barbara Rivero [...] Arlin Villafana M.D.10/11/2022 2:29 PM Dictation Location: [place] [address] Transcribed By: BRONWYN 10/11/22 142 Dictated By: Arlin Villafana II, MD 10/11/22 142 Signed By: 10/11/[address] [facility] A1C with Estimated Average Nestor santos 10-10-2022 Glucose [Mass/Vol] 117 mg/dL Normal [facility] Comment on above: Result Comment: PERF ORMED BY: [place] [address] PATHOLOGIST AUTO DESIGN CHECKER JANETTE DE LA FUENTE M.D. Performed By: #### C MP, MG, HS TROP, A1C WTH eA, LIPID, CBC #### [facility] [address] HbA1c (Bld) [Mass fraction] 5.7 % High 4.3-5.6 [facility] Comment on above: Result Comment: Incr eased risk for diabetes: 5.7 - 6.4 diabetes: >6.4 glycemic control for adults with diabetes: <7.0 Performed By: #### C MP, MG, HS TROP, A1C WTH eA, LIPID, CBC #### [facility] [address] [place] [address] [place] AMYLASEon 10-10-2022 Amylase [Catalytic activity/Vol] 40 U/L Normal 25-115 [facility] Comment on above: Performed By: #### A MY, CMP, LIPA #### [facility] [address] [place] [address] [address] Carrington Chandler Activated partial thrombopla stin time (aPTT) in platelet poor plasma by coagulation aOrdered By: Galo Dent on 10-10-2022 aPTT Coag (PPP) [Time] 35.9 s 25.1-36.5 [facility] CARDIAC ARLIN ADMITon 023 CK [Catalytic activity/Vol] 530 U/L Critically high 39-308 [facility] Comment on above: Performed By: #### A MY, CMP, LIPA #### [facility] [address] [place] [address] [address] Carrington Chandler CK.MB [Mass/Vol] 60.47 ng/mL Critically high <=3.60 [facility] Comment on above: Performed By: #### A MY, CMP, LIPA #### [facility] [address] [place] [address] Dr. Carrington Chandler HSTROP 9166.1 pg/mL Critically high 4.0-76.1 [facility] Comment on above: Result Comment: CUT- OFF POINTS HAVE BEEN ESTABLISHED BASED ON THE FOURTH UNIVERSAL DEFINITIONS OF MYOCARDIAL INFARCTION. THE UPPER REFERENCE LIMIT (URL) OF TROPONIN, DEFINED THE 99TH PERCENTILE OF cTnI DISTRIBUTION IN A REFERENCE POPULATION, HAS BEEN CONFIRMED THE DECISION THRESHOLD FOR NC DIAGNOSIS. Performed By: #### A MY, CMP, LIPA #### [facility] [address] [place] [address] Dr. Carrington Chandler SAULO 108 ng/mL Critically high 16-96 [facility] Comment on above: Performed By: #### A MY, CMP, LIPA #### [facility] [address] [place] [address] Dr. Carrington Chandler CBC AUTO DIFFon 10-10-2022 BASO # 0.0 103/ul Normal 0.0-0.1 [facility] Comment on above: Performed By: #### B MP #### [facility] [address] [place] [address] Dr. Carrington Chandler Basophils/100 WBC (Bld) 0.4 % Normal 0.2-2.0 [facility] Comment on above: Performed By: #### B MP #### [facility] [address] [place] [address] Dr. Carrington Chandler EO # 0.3 103/ul Normal 0.0-0.7 [facility] Comment on above: Performed By: #### B MP #### [facility] [address] [place] [address] Dr. Carrington Chandler Eosinophils/100 WBC (Bld) 4.9 % Normal 0.9-7.0 [facility] Comment on above: Performed By: #### B MP #### [facility] [address] [place] [address] Dr. Carrington Chandler Erythrocyte distribution width (RBC) [Ratio] 13.8 % Normal 11.0-15.0 [facility] Comment on above: Performed By: #### B MP #### [facility] [address] [place] [address] Dr. Carrington Chandler Hematocrit (Bld) [Volume fraction] 38.1 % Critically low 42.0-54.0 [facility] Comment on above: Performed By: #### B MP #### [facility] [address] [place] [address] Dr. Carrington Chandler Hemoglobin (Bld) [Mass/Vol] 13.1 g/dL Critically low 14.0-18.0 [facility] Comment on above: Performed By: #### B MP #### [facility] [address] [place] [address] Dr. Carrington Chandler IG # 0.01 10e3/ul Normal 0.00-0.03 [facility] Comment on above: Performed By: #### B MP #### [facility] [address] [place] [address] Dr. Carrington Chandler IG % 0.2 % Normal 0.0-0.5 [facility] Comment on above: Performed By: #### B MP #### [facility] [address] [place] [address] Dr. Carrington Chandler LYMPH # 1.8 103/ul Normal 1.2-3.8 [facility] Comment on above: Performed By: #### B MP #### [facility] [address] [place] [address] Dr. Carrington Chandler Lymphocytes/100 WBC (Bld) 33.5 % Normal 20.5-60.0 [facility] Comment on above: Performed By: #### B MP #### [facility] [address] [place] [address] Dr. Carrington Chandler MANUAL DIFF REQ NO Normal [facility] Comment on above: Performed By: #### B MP #### [facility] [address] [place] [address] Dr. Carrington Chandler MCH (RBC) [Entitic mass] 30.7 pg Normal 25.9-34.0 [facility] Comment on above: Performed By: #### B MP #### [facility] [address] [place] [address] [address] Carrington Chandler MCHC (RBC) [Mass/Vol] 34.4 g/dL Normal 29.9-35.2 [facility] Comment on above: Performed By: #### B MP #### [facility] [address] [place] [address] Dr. Carrington Chandler MCV (RBC) [Entitic vol] 89.2 fL Normal 80.0-94.0 [facility] Comment on above: Performed By: #### B MP #### [facility] [address] [place] [address] Dr. Carrington Chandler MONO # 0.6 103/ul Normal 0.3-0.8 [facility] Comment on above: Performed By: #### B MP #### [facility] [address] [place] [address] Dr. Carrington Chandler Monocytes/100 WBC (Bld) 11.8 % Normal 1.7-12.0 [facility] Comment on above: Performed By: #### B MP #### [facility] [address] [place] [address] Dr. Carrington Chandler NEUT # 2.6 103/ul Normal 1.4-6.5 [facility] Comment on above: Performed By: #### B MP #### [facility] [address] [place] [address] Dr. Carrington Chandler Neutrophils/100 WBC (Bld) 49.2 % Normal 43.0-75.0 [facility] Comment on above: Performed By: #### B MP #### [facility] [address] [place] [address] Dr. Carrington Chandler Platelet mean volume (Bld) [Entitic vol] 9.2 fL Critically low 9.5-13.5 [facility] Comment on above: Performed By: #### B MP #### [facility] [address] [place] [address] Dr. Carrington Chandler PLT 213 103/ul Normal 150-450 [facility] Comment on above: Performed By: #### B MP #### [facility] [address] [place], [place] [address] Dr. Carrington Chandler RBC 4.27 106/ul Critically low 4.70-6.10 [facility] Comment on above: Performed By: #### B MP #### [facility] [address] [place], [place] [address] Dr. Carrington Chandler WBC 5.4 103/ul Normal 4.0-11.0 [facility] Comment on above: Performed By: #### B MP #### [facility] [address] [place], [place] [address] Dr. Carrington Chandler Complete Blood Count Auto Di ffon 10-10-2022 Basophils (Bld) [#/Vol] 0.0 10*3/uL Normal 0.0-0.2 [facility] Comment on above: Result Comment: PERF ORMED BY: [place] [address] PATHOLOGIST AUTO DESIGN CHECKER JANETTE DE LA FUENTE M.D. Performed By: #### C MP, MG, HS TROP, A1C WTH eA, LIPID, CBC #### [place] [address] [place] Basophils/100 WBC (Bld) 0.6 % Normal . [facility] Comment on above: Performed By: #### C MP, MG, HS TROP, A1C WTH eA, LIPID, CBC #### [facility] [address] [place] [address] [place] Eosinophils (Bld) [#/Vol] 0.2 10*3/uL Normal 0.0-0.45 [facility] Comment on above: Performed By: #### C MP, MG, HS TROP, A1C WTH eA, LIPID, CBC #### [place] [address] [place] Eosinophils/100 WBC (Bld) 4.4 % Normal . [facility] Comment on above: Performed By: #### C MP, MG, HS TROP, A1C WTH eA, LIPID, CBC #### [facility] [address] Erythrocyte distribution width (RBC) [Ratio] 14.6 % Normal 12.0-14.8 [facility] Comment on above: Performed By: #### C MP, MG, HS TROP, A1C WTH eA, LIPID, CBC #### [address] Hematocrit (Bld) [Volume fraction] 36.7 % Low 38.8-50.0 [facility] Comment on above: Performed By: #### C MP, MG, HS TROP, A1C WTH eA, LIPID, CBC #### [address] Hemoglobin (Bld) [Mass/Vol] 12.5 g/dL Low 13.0-17.0 [facility] Comment on above: Performed By: #### C MP, MG, HS TROP, A1C WTH eA, LIPID, CBC #### [address] Lymphocytes (Bld) [#/Vol] 1.4 10*3/uL Normal 1.00-4.8 [facility] Comment on above: Performed By: #### C MP, MG, HS TROP, A1C WTH eA, LIPID, CBC #### [address] Lymphocytes/100 WBC (Bld) 27.5 % Normal . [facility] Comment on above: Performed By: #### C MP, MG, HS TROP, A1C WTH eA, LIPID, CBC #### [address] MCH (RBC) [Entitic mass] 30.3 pg Normal 27.5-35.2 [facility] Comment on above: Performed By: #### C MP, MG, HS TROP, A1C WTH eA, LIPID, CBC #### [address] MCV (RBC) [Entitic vol] 88.8 fL Normal 83.5-101 [facility] Comment on above: Performed By: #### C MP, MG, HS TROP, A1C WTH eA, LIPID, CBC #### [facility] [address] Mean Corpuscular HGB Conc 34.1 g/dL Normal 32.5-35.6 [facility] Comment on above: Performed By: #### C MP, MG, HS TROP, A1C WTH eA, LIPID, CBC #### [facility] [address] [place] [address] Monocytes (Bld) [#/Vol] 0.6 10*3/uL Normal 0.0-0.8 [facility] Comment on above: Performed By: #### C MP, MG, HS TROP, A1C WTH eA, LIPID, CBC #### [facility] [address] [place] [address] Monocytes/100 WBC (Bld) 11.4 % Normal . [facility] Comment on above: Performed By: #### C MP, MG, HS TROP, A1C WTH eA, LIPID, CBC #### [address] Neutrophils (Bld) [#/Vol] 2.9 10*3/uL Normal 1.8-7.7 [facility] Comment on above: Performed By: #### C MP, MG, HS TROP, A1C WTH eA, LIPID, CBC #### [address] Neutrophils/100 WBC (Bld) 56.1 % Normal . [facility] Comment on above: Performed By: #### C MP, MG, HS TROP, A1C WTH eA, LIPID, CBC #### [facility] [address] [place] [address] NRBC% 0.1 /100{WBC} Normal 0-0.5 [facility] Comment on above: Performed By: #### C MP, MG, HS TROP, A1C WTH eA, LIPID, CBC #### [address] Platelet mean volume (Bld) [Entitic vol] 7.2 fL Normal 6.6-10.1 [facility] Comment on above: Performed By: #### C MP, MG, HS TROP, A1C WTH eA, LIPID, CBC #### [facility] [address] Platelets (Bld) [#/Vol] 199 10*3/uL Normal 150-450 [facility] Comment on above: Performed By: #### C MP, MG, HS TROP, A1C WTH eA, LIPID, CBC #### [facility] [address] [place] [address] [place] RBC (Bld) [#/Vol] 4.13 10*6/uL Normal 3.90-5.60 [facility] Comment on above: Performed By: #### C MP, MG, HS TROP, A1C WTH eA, LIPID, CBC #### [address] WBC (Bld) [#/Vol] 5.1 10*3/uL Normal 4.1-10.5 [facility] Comment on above: Performed By: #### C MP, MG, HS TROP, A1C WTH eA, LIPID, CBC #### [place] [address] [place] Basophils (Bld) [#/Vol] 0.0 10*3/uL Normal 0.0-0.2 [facility] Comment on above: Result Comment: PERF ORMED BY: [place] [address] PATHOLOGIST [employer] CHECKER JANETTE DE LA FUENTE M.D. Performed By: #### P T, CBC #### [place] [address] [place] Basophils/100 WBC (Bld) 0.6 % Normal . [facility] Comment on above: Performed By: #### P T, CBC #### [place] [address] [place] Eosinophils (Bld) [#/Vol] 0.2 10*3/uL Normal 0.0-0.45 [facility] Comment on above: Performed By: #### P T, CBC #### [address] [place] [address] [place] Eosinophils/100 WBC (Bld) 4.6 % Normal . [facility] Comment on above: Performed By: #### P T, CBC #### [address] Erythrocyte distribution width (RBC) [Ratio] 14.9 % High 12.0-14.8 [facility] Comment on above: Performed By: #### P T, CBC #### [address] Hematocrit (Bld) [Volume fraction] 36.2 % Low 38.8-50.0 [facility] Comment on above: Performed By: #### P T, CBC #### [address] Hemoglobin (Bld) [Mass/Vol] 12.4 g/dL Low 13.0-17.0 [facility] Comment on above: Performed By: #### P T, CBC #### [address] Lymphocytes (Bld) [#/Vol] 1.4 10*3/uL Normal 1.00-4.8 [facility] Comment on above: Performed By: #### P T, CBC #### [address] Lymphocytes/100 WBC (Bld) 28.1 % Normal . [facility] Comment on above: Performed By: #### P T, CBC #### [address] MCH (RBC) [Entitic mass] 30.3 pg Normal 27.5-35.2 [facility] Comment on above: Performed By: #### P T, CBC #### [address] MCV (RBC) [Entitic vol] 88.5 fL Normal 83.5-101 [facility] Comment on above: Performed By: #### P T, CBC #### [address] Mean Corpuscular HGB Conc 34.2 g/dL Normal 32.5-35.6 [facility] Comment on above: Performed By: #### P T, CBC #### [address] Monocytes (Bld) [#/Vol] 0.6 10*3/uL Normal 0.0-0.8 [facility] Comment on above: Performed By: #### P T, CBC #### [address] Monocytes/100 WBC (Bld) 11.6 % Normal . [facility] Comment on above: Performed By: #### P T, CBC #### [address] Neutrophils (Bld) [#/Vol] 2.8 10*3/uL Normal 1.8-7.7 [facility] Comment on above: Performed By: #### P T, CBC #### [address] Neutrophils/100 WBC (Bld) 55.1 % Normal . [facility] Comment on above: Performed By: #### P T, CBC #### [address] NRBC% 0.1 /100{WBC} Normal 0-0.5 [facility] Comment on above: Performed By: #### P T, CBC #### [address] Platelet mean volume (Bld) [Entitic vol] 7.5 fL Normal 6.6-10.1 [facility] Comment on above: Performed By: #### P T, CBC #### [address] Platelets (Bld) [#/Vol] 201 10*3/uL Normal 150-450 [facility] Comment on above: Performed By: #### P T, CBC #### [address] RBC (Bld) [#/Vol] 4.09 10*6/uL Normal 3.90-5.60 [facility] Comment on above: Performed By: #### P T, CBC #### [address] WBC (Bld) [#/Vol] 5.1 10*3/uL Normal 4.1-10.5 [facility] Comment on above: Performed By: #### P T, CBC #### [address] Comprehensive Metabolic Pane weston 10-10-2022 Albumin [Mass/Vol] 4.1 g/dL Normal 3.5-5.7 [facility] Comment on above: Performed By: #### C MP, MG, HS TROP, A1C WTH eA, LIPID, CBC #### [address] Albumin/Globulin [Mass ratio] 1.6 {ratio} Normal [facility] Comment on above: Performed By: #### C MP, MG, HS TROP, A1C WTH eA, LIPID, CBC #### [address] ALP [Catalytic activity/Vol] 47 U/L Normal 34-104 [facility] Comment on above: Performed By: #### C MP, MG, HS TROP, A1C WTH eA, LIPID, CBC #### [address] ALT [Catalytic activity/Vol] 20 U/L Normal 7-52 [facility] Comment on above: Performed By: #### C MP, MG, HS TROP, A1C WTH eA, LIPID, CBC #### [address] Anion gap [Moles/Vol] 9.5 mmol/L Normal 6.0-15.0 [facility] Comment on above: Performed By: #### C MP, MG, HS TROP, A1C WTH eA, LIPID, CBC #### [address] AST [Catalytic activity/Vol] 48 U/L High 13-39 [facility] Comment on above: Performed By: #### C MP, MG, HS TROP, A1C WTH eA, LIPID, CBC #### [facility] [address] Bilirubin [Mass/Vol] 0.4 mg/dL Normal 0.3-1.0 [facility] Comment on above: Performed By: #### C MP, MG, HS TROP, A1C WTH eA, LIPID, CBC #### [facility] [address] Calcium [Mass/Vol] 9.1 mg/dL Normal 8.6-10.3 [facility] Comment on above: Performed By: #### C MP, MG, HS TROP, A1C WTH eA, LIPID, CBC #### [facility] [address] Chloride [Moles/Vol] 108 mmol/L High 98-107 [facility] Comment on above: Performed By: #### C MP, MG, HS TROP, A1C WTH eA, LIPID, CBC #### [facility] [address] CO2 [Moles/Vol] 25.6 mmol/L Normal 21.0-31.0 [facility] Comment on above: Performed By: #### C MP, MG, HS TROP, A1C WTH eA, LIPID, CBC #### [facility] [address] Creatinine [Mass/Vol] 1.04 mg/dL Normal 0.70-1.30 [facility] Comment on above: Performed By: #### C MP, MG, HS TROP, A1C WTH eA, LIPID, CBC #### [facility] [address] [place] [address] [place] Creatinine Clr Calc Pharmacy 83.69 [facility] Comment on above: Performed By: #### C MP, MG, HS TROP, A1C WTH eA, LIPID, CBC #### [facility] [address] [place] [address] [place] GFR/1.73 sq M.predicted MDRD (S/P/Bld) [Vol rate/Area] mL/min/{1.73_m2} [facility] Comment on above: Performed By: #### C MP, MG, HS TROP, A1C WTH eA, LIPID, CBC #### [facility] [address] Globulin (S) [Mass/Vol] 2.6 g/dL [facility] Comment on above: Performed By: #### C MP, MG, HS TROP, A1C WTH eA, LIPID, CBC #### [facility] [address] Glucose [Mass/Vol] 102 mg/dL Normal 74-109 [facility] Comment on above: Result Comment: [facility] Glucose Reference Range is dependent on time and content of last meal. Glucose of more than 200 mg/dL in a nonstressed, ambulatory subject supports the diagnosis of Diabetes Mellitus. ADA recommended reference range Performed By: #### C MP, MG, HS TROP, A1C WTH eA, LIPID, CBC #### [facility] [address] Potassium [Moles/Vol] 4.1 mmol/L Normal 3.5-5.1 [facility] Comment on above: Performed By: #### C MP, MG, HS TROP, A1C WTH eA, LIPID, CBC #### [facility] [address] Protein [Mass/Vol] 6.7 g/dL Normal 6.4-8.9 [facility] Comment on above: Performed By: #### C MP, MG, HS TROP, A1C WTH eA, LIPID, CBC #### [facility] [address] [place] [address] [place] Sodium [Moles/Vol] 139 mmol/L Normal 136-145 [facility] Comment on above: Performed By: #### C MP, MG, HS TROP, A1C WTH eA, LIPID, CBC #### [facility] [address] [place] [address] [place] Urea nitrogen [Mass/Vol] 18 mg/dL Normal 7-25 [facility] Comment on above: Performed By: #### C MP, MG, HS TROP, A1C WTH eA, LIPID, CBC #### [address] ECG 12 lead ECGon 10-10-2022 ECG 12 lead ECG [facility] [place] [address] [place] [address] Electrocardiograph Report Signed Patient: Hector Gaspar SR MR#: [id number] 187 : 1960 Acct:[id number] Age/Sex: 62 / M ADM Date: 10/10/22 Loc: 4P Room: [address] [place] [address] Type: ADM IN Attending Dr: Barbara Rivero [...] (183) on 10/11/2022 11:32:43 AM Referred By: NO Electronically Signed By:EDILSON CRUZ DO Transcribed By: MUS Signed By Edilson Cruz DO 10/[address] [facility] ECG 12 lead ECG [facility] [place] [address] [place] [address] Electrocardiograph Report Signed Patient: Hector Gaspar SR MR#: [id number] 187 : 1960 Acct:[id number] Age/Sex: 62 / M ADM Date: 10/10/22 Loc: 4 Room: [address] [place] [address] Type: ADM IN Attending Dr: Barbara Rivero [...] Signed By Edilson Cruz DO 10/10 1203 [facility] echo transthoracicon [facility] echo transthoracic [facility] [place] [address] Echocardiogram Signed Patient: Hector Gaspar MR#: [id number] 187 : 1960 Acct:[id number] Age/Sex: 62 / M ADM Date: 10/10/22 Loc: Room: [address] [place] [address] Type: ADM IN Attending Dr: Barbara Rivero MD Ordering Provider: Galo Dent MD Date of Service: 10/10/22 [facility] echo transthoracic: NSTMI Copies to: Mohsen Gonsalves MD, [facility] Galo Dent MD Weight: 224 lb Performed [...] max P.0 mmHg RAP systole: 5.0 mmHg ___ Transcribed By: SCV Performed At: 10/10/22 0914 Signed By: Mohsen Gonsalves MD, FACC 10/10/22 1406 [facility] LIPASEon 10-10-2022 Lipase [Catalytic activity/Vol] 212.0 U/L Normal 73.0-393.0 [facility] Comment on above: Performed By: #### A MY, CMP, LIPA #### [facility] [address] [place] [address] Dr. Carrington Chandler Lipid Panelon 10-10-2022 Cholesterol [Mass/Vol] 235 mg/dL High 140-200 [facility] Comment on above: Result Comment: Chol less than 200 mg/dl low risk Chol 201-239 mg/dl borderline risk Chol 240 mg/dl and greater high risk Performed By: #### C MP, MG, HS TROP, A1C WTH eA, LIPID, CBC #### [facility] [address] Cholesterol in HDL [Mass/Vol] 48 mg/dL Normal 29-71 [facility] Comment on above: Result Comment: HDL CHOL ATP-III CLASSIFICATION Cardiovascular Risk HDL > or equal to 60 mg/dL LOW HDL < 40 mg/dL HIGH Performed By: #### C MP, MG, HS TROP, A1C WTH eA, LIPID, CBC #### [facility] [address] Cholesterol.total/Chol esterol in HDL [Mass ratio] 4.9 {ratio} Normal <5.0 [facility] Comment on above: Result Comment: PERF ORMED BY: [place] [address] PATHOLOGIST [employer] CHECKER JANETTE DE LA FUENTE M.D. Performed By: #### C MP, MG, HS TROP, A1C WTH eA, LIPID, CBC #### [facility] [address] LDL Cholesterol,Calculated 164 mg/dL High 0-100 [facility] Comment on above: Result Comment: LDL ATP III CLASSIFICATION LDL less than 100 mg/dL Optimal LDL 100-129 mg/dL Near or above optimal LDL 130-159 mg/dL Borderline high LDL 160-189 mg/dL High LDL greater than 189 mg/dL Very high Performed By: #### C MP, MG, HS TROP, A1C WTH eA, LIPID, CBC #### [facility] [address] Triglyceride w/Reflex 116 mg/dL Normal 0-149 [facility] Comment on above: Result Comment: TRIG ATP III CLASSIFICATION TRIG less than 150 mg/dL Normal TRIG 150-199 mg/dL Borderline high TRIG 200-500 mg/dL High TRIG greater than 500 mg/dL Very high Standard traceable to the Center for Disease Conrtrol and Prevention (CDC) test method. Performed By: #### C MP, MG, HS TROP, A1C WTH eA, LIPID, CBC #### [facility] [address] VLDL CHOLESTEROL 23 mg/dL Normal [facility] Comment on above: Performed By: #### C MP, MG, HS TROP, A1C WTH eA, LIPID, CBC #### [facility] [address] Magnesiumon 10-10-2022 Magnesium [Mass/Vol] 2.0 mg/dL Normal 1.9-2.7 [facility] Comment on above: Performed By: #### C MP, MG, HS TROP, A1C WTH eA, LIPID, CBC #### [facility] [address] PROF 14(COMP METB)on 023 Albumin [Mass/Vol] 3.9 g/dL Normal 3.4-5.0 [facility] Comment on above: Performed By: #### A MY, CMP, LIPA #### [facility] [address] [place] [address] [address] Carrington Chandler Albumin/Globulin [Mass ratio] 1.2 {ratio} Normal [facility] Comment on above: Performed By: #### A MY, CMP, LIPA #### [facility] [address] [address] [address] Carrington Chandler ALP [Catalytic activity/Vol] 67 U/L Normal 46-116 [facility] Comment on above: Performed By: #### A MY, CMP, LIPA #### [facility] [address] [address] [address] Carrington Chandler ALT [Catalytic activity/Vol] 30 U/L Normal 16-63 [facility] Comment on above: Performed By: #### A MY, CMP, LIPA #### [facility] [address] [address] [address] Carrington Chandler Anion gap [Moles/Vol] 12.8 mmol/L Normal [facility] Comment on above: Performed By: #### A MY, CMP, LIPA #### [facility] [address] [address] [address] Carrington Chandler AST [Catalytic activity/Vol] 58 U/L Critically high 15-37 [facility] Comment on above: Performed By: #### A MY, CMP, LIPA #### [facility] [address] [address] [address] Carrington Chandler Bilirubin [Mass/Vol] 0.3 mg/dL Normal 0.2-1.0 [facility] Comment on above: Performed By: #### A MY, CMP, LIPA #### [facility] [address] [place] [address] Dr. Carrington Chandler Calcium [Mass/Vol] 8.9 mg/dL Normal 8.5-10.1 [facility] Comment on above: Performed By: #### A MY, CMP, LIPA #### [facility] [address] [address] [address] Carrington Chandler Chloride [Moles/Vol] 101 mmol/L Normal 98-107 [facility] Comment on above: Performed By: #### A MY, CMP, LIPA #### [facility] [address] [address] [address] Carrington Chandler CO2 [Moles/Vol] 26.0 mmol/L Normal 21.0-32.0 [facility] Comment on above: Performed By: #### A MY, CMP, LIPA #### [facility] [address] [address] [address] Carrington Chandler Creatinine [Mass/Vol] 0.98 mg/dL Normal 0.70-1.30 [facility] Comment on above: Performed By: #### A MY, CMP, LIPA #### [facility] [address] [place] [address] Dr. Carrington Chandler EGFR-AF SWAZI >60 Normal >=60 [facility] Comment on above: Performed By: #### A MY, CMP, LIPA #### [facility] [address] [place] [address] Dr. Carrington Chandler EGFR-NON AF SWAZI >60 Normal >=60 [facility] Comment on above: Performed By: #### A MY, CMP, LIPA #### [facility] [address] [address] [address] Carrington Chandler Globulin (S) [Mass/Vol] 3.2 g/dL Normal [facility] Comment on above: Performed By: #### A MY, CMP, LIPA #### [facility] [address] [address] [address] Carrington Chandler Glucose [Mass/Vol] 101 mg/dL Normal 74-106 [facility] Comment on above: Performed By: #### A MY, CMP, LIPA #### [facility] [address] [address] [address] Carrington Chandler Potassium [Moles/Vol] 3.8 mmol/L Normal 3.5-5.1 [facility] Comment on above: Performed By: #### A MY, CMP, LIPA #### [facility] [address] [address] [address] Carrington Chandler Protein [Mass/Vol] 7.1 g/dL Normal 6.4-8.2 [facility] Comment on above: Performed By: #### A MY, CMP, LIPA #### [facility] [address] [address] [address] Carrington Chandler Sodium [Moles/Vol] 136 mmol/L Normal 136-145 [facility] Comment on above: Performed By: #### A MY, CMP, LIPA #### [facility] [address] [address] [address] Carrington Chandler Urea nitrogen [Mass/Vol] 19.0 mg/dL Critically high 7.0-18.0 [facility] Comment on above: Performed By: #### A MY, CMP, LIPA #### [facility] [address] [address] [address] Carrington Chandler Urea nitrogen/Creatinine [Mass ratio] 19.4 mg/mg Normal [facility] Comment on above: Performed By: #### A MY, CMP, LIPA #### [facility] [address] [address] [address] Carrington Chandler PROTIMEon 10-10-2022 INR Coag (PPP) [Relative time] {INR} Normal [facility] Comment on above: Performed By: #### B MP #### [facility] [address] [address] [address] Carrington Chandler INR GUIDELINES SEE BELOW Normal [facility] Comment on above: Result Comment: LYNDON RED INR: 2.0 - 3.0 CONDITIONS NOT LISTED BELOW 2.5 - 3.5 FOR PROSTHETIC HEART VALVE REPLACEMENT 2.5 - 3.5 RECURRENT THROMBOSIS Performed By: #### B MP #### [facility] [address] [address] [address] Carrington Chandler PT Coag (PPP) [Time] 9.7 s Normal 9.0-11.6 [facility] Comment on above: Performed By: #### B MP #### [facility] [address] [address] [address] Carrington Chandler PTTon 10-10-2022 aPTT Coag (Bld) [Time] 29.5 s Normal 22.3-36.2 [facility] Comment on above: Performed By: #### B MP #### [facility] [address] [place] [address] Dr. Carrington Chandler Partial Thromboplastin Timeo n 10-10-2022 aPTT Coag (Bld) [Time] 35.9 s Normal 25.1-36.5 [facility] Comment on above: Result Comment: PERF ORMED BY: [facility] [address] [place] [address] PATHOLOGIST [employer] DESIGN CHECKER JANETTE DE LA FUENTE M.D. Performed By: #### C MP, MG, HS TROP, A1C WTH eA, LIPID, CBC #### [facility] [address] [place] [address] [place] Prothrombin Time INRon 10-10 INR Coag (PPP) [Relative time] 0.9 {INR} Normal [facility] Comment on above: Result Comment: INR [...] heart valves: 3 - 4.5 PERFORMED BY: [place] [address] PATHOLOGIST AUTO DESIGN CHECKER JANETTE DE LA FUENTE M.D. Performed By: #### P T, CBC #### [place] [id number] [facility] PT Coag (PPP) [Time] 10.9 s Normal 9.0-12.9 [facility] Comment on above: Performed By: #### P T, CBC #### [place] [id number] [facility] Troponin I High Sensitivityo n 10-10-2022 Troponin I High Sensitivity 7787.7 pg/mL Off scale high 0.0-20.0 [facility] Comment on above: Order Comment: Comme nt Q 3 hrs Result Comment: Resu lts called at 0817 on 10/10/22 --- 10/10/22 0819 --- Trop HS previously reported as: 7787.7 *H pg/mL PERFORMED BY: [place] [address] PATHOLOGIST [employer] DESIGN CHECKER JANETTE DE LA FUENTE M.D. Performed By: #### C MP, MG, HS TROP, A1C WTH eA, LIPID, CBC #### [place] [id number] [facility] XR ABD FLAT UP_PA Jean-Pierre 10-10 XR [...] by: XIOMARA SCHNEIDER Date: 2022-10-10 00:33 Normal [facility] XR knee RT 3Von 09-09-2022 XR knee RT 3V [facility] [employer] Other XR knee RT 3V [facility] [place] [employer]. Other XR knee RT 3V [address] [place] [address] [employer] Other XR knee RT 3V [address] [employer] Other XR knee RT 3V XRay Report [employer] Other XR knee RT 3V Signed [employer] Other XR knee RT 3V Patient: Hector Gaspar MR#: [id number] [employer] Other XR knee RT 3V 187 [employer] Other XR knee RT 3V : 1960 Acct:[id number] [employer] Other XR knee RT 3V Age/Sex: 62 / M ADM Date: 09/09/22 [employer] Other XR knee RT 3V Loc: SOXD Room: Type : [facility] [employer] Other XR knee RT 3V Attending Dr: Wagner Marrufo DO [employer] Other XR knee RT 3V Copies to: Wagner Marrufo DO [employer] Other XR knee RT 3V Ordering Provider: Judy Marrufo DO [employer] Other XR knee RT 3V Date of Service: 09/09/22 [employer] Other XR knee RT 3V XR/XR knee RT 3V - NOT FOR ER USE: Acute pain of right knee [employer] Other XR knee RT 3V RIGHT KNEE - 3 views [employer] Other XR knee RT 3V CLINICAL HISTORY: Generalized right knee pain for 2 weeks. [employer] Other XR knee RT 3V COMPARISON: None [employer] Other XR knee RT 3V FINDINGS: [employer] Other XR knee RT 3V Small knee joint effusion. Mild degenerative changes without acute bony process. Presumed loose [employer] Other XR knee RT 3V body seen anteriorly within the joint space. [employer] Other XR knee RT 3V X R/XR knee RT 3V - NOT FOR ER USE [employer] Other XR knee RT 3V IMPRESSION: [employer] Other XR knee RT 3V MILD DEGENERATIVE CH ANGES WITHOUT ACUTE BONY PROCESS. [employer] Other XR knee RT 3V Impression dictated by: Parrish Layton Jr., D.OEhsan09/09/2022 3:40 PM [employer] Other XR knee RT 3V Dictation Location: [place] [address] [employer] Other XR knee RT 3V Transcribed By: BRONWYN 09/09/22 1540 [employer] Other XR knee RT 3V Dictated By: Parrish Layton Jr, DO 09/09/22 1539 [employer] Other XR knee RT 3V Signed By: [employer] Other XR knee RT 3V 09/09/22 1540 [email or web address] Other XR knee RT 3V - NOT FOR ER U Al 09-09-2022 XR knee RT 3V - NOT FOR ER USE [facility] [place] [address] [place] [id number] XRay Report Signed Patient: Hector Gaspar SR MR#: [id number] 187 : 1960 Acct:[id number] Age/Sex: 62 / M ADM Date: 09/09/22 [place]: [facility] [place]: Type: [facility] Attending Dr: Wagner Marrufo DO Copies to: [...] PROCESS. Impression dictated by: Parrish Layton Jr., DEhsanOEhsan09/09/2022 3:40 PM Dictation Location: [place] [address] Transcribed By: [facility] 09/09/22 1540 Dictated By: Parrish Layton Jr, DO 09/09/22 1539 Signed By: 09/09/22 1540 Normal [facility] CBC AUTO DIFFon 09-08-2022 BASO # 0.0 103/ul Normal 0.0-0.1 [facility] Comment on above: Performed By: #### C BC #### [facility] [address] [address] [address] Carrington Chandler Basophils/100 WBC (Bld) 0.4 % Normal 0.2-2.0 [facility] Comment on above: Performed By: #### C BC #### [facility] [address] [address] [address] Carrington Chandler EO # 0.3 103/ul Normal 0.0-0.7 [facility] Comment on above: Performed By: #### C BC #### [facility] [address] [place] [address] Dr. Carrington Chandler Eosinophils/100 WBC (Bld) 4.9 % Normal 0.9-7.0 [facility] Comment on above: Performed By: #### C BC #### [facility] [address] [place] [address] Dr. Carrington Chandler Erythrocyte distribution width (RBC) [Ratio] 14.0 % Normal 11.0-15.0 [facility] Comment on above: Performed By: #### C BC #### [facility] [address] [place] [address] Dr. Carrington Chandler Hematocrit (Bld) [Volume fraction] 36.9 % Critically low 42.0-54.0 [facility] Comment on above: Performed By: #### C BC #### [facility] [address] [place] [address] Dr. Carrington Chandler Hemoglobin (Bld) [Mass/Vol] 12.2 g/dL Critically low 14.0-18.0 [facility] Comment on above: Performed By: #### C BC #### [facility] [address] [place] [address] Dr. aCrrington Chandler IG # 0.01 10e3/ul Normal 0.00-0.03 [facility] Comment on above: Performed By: #### C BC #### [facility] [address] [place] [address] Dr. Carrington Chandler IG % 0.2 % Normal 0.0-0.5 [facility] Comment on above: Performed By: #### C BC #### [facility] [address] [place] [address] Dr. Carrington Chandler LYMPH # 1.7 103/ul Normal 1.2-3.8 [facility] Comment on above: Performed By: #### C BC #### [facility] [address] [place] [address] Dr. Carrington Chandler Lymphocytes/100 WBC (Bld) 30.6 % Normal 20.5-60.0 [facility] Comment on above: Performed By: #### C BC #### [facility] [address] [place] [address] Dr. Carrington Chandler MANUAL DIFF REQ NO Normal [facility] Comment on above: Performed By: #### C BC #### [facility] [address] [place] [address] Dr. Carrington Chandler MCH (RBC) [Entitic mass] 30.3 pg Normal 25.9-34.0 [facility] Comment on above: Performed By: #### C BC #### [facility] [address] [place] [address] Dr. Carrington Chandler MCHC (RBC) [Mass/Vol] 33.1 g/dL Normal 29.9-35.2 [facility] Comment on above: Performed By: #### C BC #### [facility] [address] [place] [address] Dr. Carrington Chandler MCV (RBC) [Entitic vol] 91.6 fL Normal 80.0-94.0 [facility] Comment on above: Performed By: #### C BC #### [facility] [address] [place] [address] Dr. Carrington Chnadler MONO # 0.6 103/ul Normal 0.3-0.8 [facility] Comment on above: Performed By: #### C BC #### [facility] [address] [place] [address] Dr. Carrington Chandler Monocytes/100 WBC (Bld) 9.9 % Normal 1.7-12.0 [facility] Comment on above: Performed By: #### C BC #### [facility] [address] [place] [address] Dr. Carrington Chandler NEUT # 3.0 103/ul Normal 1.4-6.5 [facility] Comment on above: Performed By: #### C BC #### [facility] [address] [place] [address] Dr. Carrington Chandler Neutrophils/100 WBC (Bld) 54.0 % Normal 43.0-75.0 [facility] Comment on above: Performed By: #### C BC #### [facility] [address] [address] [address] Carrington Chandler Platelet mean volume (Bld) [Entitic vol] 8.9 fL Critically low 9.5-13.5 [facility] Comment on above: Performed By: #### C BC #### [facility] [address] [address] [address] Carrington Chandler PLT 189 103/ul Normal 150-450 [facility] Comment on above: Performed By: #### C BC #### [facility] [address] [address] [address] Carrington Chandler RBC 4.03 106/ul Critically low 4.70-6.10 [facility] Comment on above: Performed By: #### C BC #### [facility] [address] [place] [address] Dr. Carrington Chandler WBC 5.5 103/ul Normal 4.0-11.0 [facility] Comment on above: Performed By: #### C BC #### [facility] [address] [address] [address] Carrington Chandler CRPon 09-08-2022 CRP 0.5 mg/dL Normal <=1.0 [facility] Comment on above: Performed By: #### A MY, CMP, LIPA #### [facility] [address] [address] [address] Carrington Chandler PROF CHEM 8 (BAS METB)on Anion gap [Moles/Vol] 12.7 mmol/L Normal [facility] Comment on above: Performed By: #### A MY, CMP, LIPA #### [facility] [address] [address] [address] Carrington Chandler Calcium [Mass/Vol] 8.6 mg/dL Normal 8.5-10.1 [facility] Comment on above: Performed By: #### A MY, CMP, LIPA #### [facility] [address] [address] [address] Carrington Chandler Chloride [Moles/Vol] 102 mmol/L Normal 98-107 [facility] Comment on above: Performed By: #### A MY, CMP, LIPA #### [facility] [address] [address] [address] Carrington Chandler CO2 [Moles/Vol] 27.2 mmol/L Normal 21.0-32.0 [facility] Comment on above: Performed By: #### A MY, CMP, LIPA #### [facility] [address] [address] [address] Carrington Chandler Creatinine [Mass/Vol] 1.11 mg/dL Normal 0.70-1.30 [facility] Comment on above: Performed By: #### A MY, CMP, LIPA #### [facility] [address] [place] [address] Dr. Carrington Chandler EGFR-AF SWAZI >60 Normal >=60 [facility] Comment on above: Performed By: #### A MY, CMP, LIPA #### [facility] [address] [address] [address] Carrington Chandler EGFR-NON AF SWAZI >60 Normal >=60 [facility] Comment on above: Performed By: #### A MY, CMP, LIPA #### [facility] [address] [address] [address] Carrington Chandler Glucose [Mass/Vol] 132 mg/dL Critically high 74-106 [facility] Comment on above: Performed By: #### A MY, CMP, LIPA #### [facility] [address] [address] [address] Carrington Chandler Potassium [Moles/Vol] 3.9 mmol/L Normal 3.5-5.1 [facility] Comment on above: Performed By: #### A MY, CMP, LIPA #### [facility] [address] [address] [address] Carrington Chandler Sodium [Moles/Vol] 138 mmol/L Normal 136-145 [facility] Comment on above: Performed By: #### A MY, CMP, LIPA #### [facility] [address] [address] [address] Carrington Chandler Urea nitrogen [Mass/Vol] 18.0 mg/dL Normal 7.0-18.0 [facility] Comment on above: Performed By: #### A MY CMP, LIPA #### [facility] [address] [address] [address] Carrington Chandler Urea nitrogen/Creatinine [Mass ratio] 16.2 mg/mg Normal [facility] Comment on above: Performed By: #### A MY CMP, LIPA #### [facility] [address] [address] [address] Carrington Chandler US [place] DOP LEG [...] CYNTHIA VASQUEZ Date: 2022-09-07 22:52 Normal [facility] HEMOGLOBINon 08-10-2022 Hemoglobin (Bld) [Mass/Vol] 13.3 g/dL Critically low 14.0-18.0 [facility] Comment on above: Performed By: #### B MP #### [facility] [address] [address] [address] Carrington Chandler CBC W MANUAL DIFFon 07-11-20 22 ATYPICAL LYMPH # 0.65 103/ul Normal [facility] Comment on above: Performed By: #### A MY, CMP, LIPA #### [facility] [address] [address] [address] Carrington Chandler ATYPICAL LYMPH % 11 % Normal [facility] Comment on above: Performed By: #### A MY, CMP, LIPA #### [facility] [address] [place] [address] Dr. Carrington Chandler BAND # 0.0 103/ul Normal 0.0-0.3 [facility] Comment on above: Performed By: #### A MY, CMP, LIPA #### [facility] [address] [place] [address] Dr. Carrington Chandler BAND % 0 % Normal 0-5 [facility] Comment on above: Performed By: #### A MY, CMP, LIPA #### [facility] [address] [place] [address] Dr. Carrington Chandler BASOM # 0.00 103/ul Normal 0.00-0.10 [facility] Comment on above: Performed By: #### A MY, CMP, LIPA #### [facility] [address] [place] [address] Dr. Carrington Chandler BASOM % 0.0 % Critically low 0.2-2.0 [facility] Comment on above: Performed By: #### A MY, CMP, LIPA #### [facility] [address] [place] [address] Dr. Carrington Chandler BLAST # Normal [facility] Comment on above: Performed By: #### A MY, CMP, LIPA #### [facility] [address] [place] [address] Dr. Carrington Chandler BLAST % Normal [facility] Comment on above: Performed By: #### A MY, CMP, LIPA #### [facility] [address] [place] [address] Dr. Carrington Chandler CORRECTED WBC Normal 4.0-11.0 [facility] Comment on above: Performed By: #### A MY, CMP, LIPA #### [facility] [address] [place] [address] Dr. Carrington Chandler EOS # 0.00 103/ul Normal 0.00-0.70 [facility] Comment on above: Performed By: #### A MY, CMP, LIPA #### [facility] [address] [address] [address] Carrington Chandler EOS% 0.0 % Critically low 0.9-7.0 [facility] Comment on above: Performed By: #### A MY, CMP, LIPA #### [facility] [address] [address] [address] Carrington Chandler HCT 34.7 % Critically low 42.0-54.0 [facility] Comment on above: Performed By: #### A MY, CMP, LIPA #### [facility] [address] [address] [address] Carrington Chandler HGB 11.7 g/dl Critically low 14.0-18.0 [facility] Comment on above: Performed By: #### A MY, CMP, LIPA #### [facility] [address] [address] [address] Carrington Chandler LYMPHM # 0.12 103/ul Critically low 1.20-3.80 [facility] Comment on above: Performed By: #### A MY, CMP, LIPA #### [facility] [address] [address] [address] Carrington Chandler LYMPHM% 2.0 % Critically low 20.5-60.0 [facility] Comment on above: Performed By: #### A MY, CMP, LIPA #### [facility] [address] [address] [address] Carrington Chandler MCH 29.9 pg Normal 25.9-34.0 [facility] Comment on above: Performed By: #### A MY, CMP, LIPA #### [facility] [address] [address] [address] Carrington Chandler MCHC 33.7 g/dl Normal 29.9-35.2 [facility] Comment on above: Performed By: #### A MY, CMP, LIPA #### [facility] [address] [address] [address] Carrington Chandler MCV 88.7 fL Normal 80.0-94.0 [facility] Comment on above: Performed By: #### A MY, CMP, LIPA #### [facility] [address] [address] [address] Carrington Chandler METAMYELOCYTE # Normal [facility] Comment on above: Performed By: #### A MY, CMP, LIPA #### [facility] [address] [address] [address] Carrington Chandler METAMYELOCYTE % Normal [facility] Comment on above: Performed By: #### A MY, CMP, LIPA #### [facility] [address] [address] [address] Carrington Chandler MONOM# 0.00 103/ul Critically low 0.30-0.80 [facility] Comment on above: Performed By: #### A MY, CMP, LIPA #### [facility] [address] [place] [address] Dr. Carrington Chandler MONOM% 0.0 % Critically low 1.7-12.0 [facility] Comment on above: Performed By: #### A MY, CMP, LIPA #### [facility] [address] [address] [address] Carrington Chandler MPV 9.4 fL Critically low 9.5-13.5 [facility] Comment on above: Performed By: #### A MY, CMP, LIPA #### [facility] [address] [place] [address] Dr. Carrington Chandler MYELOCYTE # Normal [facility] Comment on above: Performed By: #### A MY, CMP, LIPA #### [facility] [address] [address] [address] Carrington Chandler MYELOCYTE % Normal [facility] Comment on above: Performed By: #### A MY, CMP, LIPA #### [facility] [address] [place] [address] Dr. Carrington Chandler NRBC Normal [facility] Comment on above: Performed By: #### A MY, CMP, LIPA #### [facility] [address] [place] [address] Dr. Carrington Chandler PLT 160 103/ul Normal 150-450 [facility] Comment on above: Performed By: #### A MY, CMP, LIPA #### [facility] [address] [address] [address] Carrington Chandler RBC 3.91 106/ul Critically low 4.70-6.10 [facility] Comment on above: Performed By: #### A MY, CMP, LIPA #### [facility] [address] [address] [address] Carrington Chandler RDW 12.4 % Normal 11.0-15.0 [facility] Comment on above: Performed By: #### A MY, CMP, LIPA #### [facility] [address] [place] [address] Dr. Carrington Chandler SEG # 5.13 103/ul Normal 1.40-6.50 [facility] Comment on above: Performed By: #### A MY, CMP, LIPA #### [facility] [address] [place] [address] Dr. Carrington Chandler SEG % 87.0 % Critically high 43.0-75.0 [facility] Comment on above: Performed By: #### A MY, CMP, LIPA #### [facility] [address] [place] [address] Dr. Carrington Chandler WBC 5.9 103/ul Normal 4.0-11.0 [facility] Comment on above: Performed By: #### A MY, CMP, LIPA #### [facility] [address] [place] [address] Dr. Carrington Chandler PROF 14(COMP METB)on 022 Albumin [Mass/Vol] 3.0 g/dL Critically low 3.4-5.0 Th [facility] Comment on above: Performed By: #### C MP #### [facility] [address] [place] [address] Dr. Carrington Chandler Albumin/Globulin [Mass ratio] 0.9 {ratio} Normal [facility] Comment on above: Performed By: #### C MP #### [facility] [address] [address] [address] Carrington Chandler ALP [Catalytic activity/Vol] 56 U/L Normal 46-116 [facility] Comment on above: Performed By: #### C MP #### [facility] [address] [place] [address] Dr. Carrington Chandler ALT [Catalytic activity/Vol] 21 U/L Normal 16-63 [facility] Comment on above: Performed By: #### C MP #### [facility] [address] [place] [address] Dr. Carrington Chandler Anion gap [Moles/Vol] 12.9 mmol/L Normal [facility] Comment on above: Performed By: #### C MP #### [facility] [address] [place] [address] Dr. Carrington Chandler AST [Catalytic activity/Vol] 15 U/L Normal 15-37 [facility] Comment on above: Performed By: #### C MP #### [facility] [address] [place] [address] Dr. Carrington Chandler Bilirubin [Mass/Vol] 0.2 mg/dL Normal 0.2-1.0 [facility] Comment on above: Performed By: #### C MP #### [facility] [address] [place] [address] Dr. Carrington Chandler Calcium [Mass/Vol] 8.1 mg/dL Critically low 8.5-10.1 [facility] Comment on above: Performed By: #### C MP #### [facility] [address] [place] [address] Dr. Carrington Chandler Chloride [Moles/Vol] 104 mmol/L Normal 98-107 [facility] Comment on above: Performed By: #### C MP #### [facility] [address] [place] [address] Dr. Carrington Chandler CO2 [Moles/Vol] 24.6 mmol/L Normal 21.0-32.0 [facility] Comment on above: Performed By: #### C MP #### [facility] [address] [place] [address] Dr. Carrington Chandler Creatinine [Mass/Vol] 0.88 mg/dL Normal 0.70-1.30 [facility] Comment on above: Performed By: #### C MP #### [facility] [address] [address] [address] Carrington Chandler EGFR-AF SWAZI >60 Normal >=60 [facility] Comment on above: Performed By: #### C MP #### [facility] [address] [address] [address] Carrington Chandler EGFR-NON AF SWAZI >60 Normal >=60 [facility] Comment on above: Performed By: #### C MP #### [facility] [address] [address] [address] Carrington Chandler Globulin (S) [Mass/Vol] 3.3 g/dL Normal [facility] Comment on above: Performed By: #### C MP #### [facility] [address] [address] [address] Carrington Chandler Glucose [Mass/Vol] 174 mg/dL Critically high 74-106 [facility] Comment on above: Performed By: #### C MP #### [facility] [address] [address] [address] Carrington Chandler Potassium [Moles/Vol] 3.5 mmol/L Normal 3.5-5.1 [facility] Comment on above: Performed By: #### C MP #### [facility] [address] [address] [address] Carrington Chandler Protein [Mass/Vol] 6.3 g/dL Critically low 6.4-8.2 Th [facility] Comment on above: Performed By: #### C MP #### [facility] [address] [address] [address] Carrington Chandler Sodium [Moles/Vol] 138 mmol/L Normal 136-145 [facility] Comment on above: Performed By: #### C MP #### [facility] [address] [address] [address] Carrington Chandler Urea nitrogen [Mass/Vol] 17.0 mg/dL Normal 7.0-18.0 [facility] Comment on above: Performed By: #### C MP #### [facility] [address] [address] [address] Carrington Chandler Urea nitrogen/Creatinine [Mass ratio] 19.3 mg/mg Normal [facility] Comment on above: Performed By: #### C MP #### [facility] [address] [address] [address] Carrington Chandler CBC AUTO DIFFon 07-10-2022 BASO # 0.0 103/ul Normal 0.0-0.1 [facility] Comment on above: Performed By: #### B MP #### [facility] [address] [address] [address] Carrington Chandler Basophils/100 WBC (Bld) 0.2 % Normal 0.2-2.0 [facility] Comment on above: Performed By: #### B MP #### [facility] [address] [place] [address] Dr. Carrington Chandler EO # 0.1 103/ul Normal 0.0-0.7 [facility] Comment on above: Performed By: #### B MP #### [facility] [address] [address] [address] Carrington Chandler Eosinophils/100 WBC (Bld) 2.3 % Normal 0.9-7.0 [facility] Comment on above: Performed By: #### B MP #### [facility] [address] [address] [address] Carrington Chandler Erythrocyte distribution width (RBC) [Ratio] 12.5 % Normal 11.0-15.0 [facility] Comment on above: Performed By: #### B MP #### [facility] [address] [place] [address] Dr. Carrington Chandler Hematocrit (Bld) [Volume fraction] 36.8 % Critically low 42.0-54.0 [facility] Comment on above: Performed By: #### B MP #### [facility] [address] [place] [address] Dr. Carrington Chandler Hemoglobin (Bld) [Mass/Vol] 12.3 g/dL Critically low 14.0-18.0 [facility] Comment on above: Performed By: #### B MP #### [facility] [address] [address] [address] Carrington Chandler IG # 0.01 10e3/ul Normal 0.00-0.03 [facility] Comment on above: Performed By: #### B MP #### [facility] [address] [address] [address] Carrington Chandler IG % 0.2 % Normal 0.0-0.5 [facility] Comment on above: Performed By: #### B MP #### [facility] [address] [place] [address] Dr. Carrington Chandler LYMPH # 1.5 103/ul Normal 1.2-3.8 [facility] Comment on above: Performed By: #### B MP #### [facility] [address] [place] [address] Dr. Carrington Chandler Lymphocytes/100 WBC (Bld) 34.7 % Normal 20.5-60.0 [facility] Comment on above: Performed By: #### B MP #### [facility] [address] [place] [address] Dr. Carrington Chandler MANUAL DIFF REQ NO Normal [facility] Comment on above: Performed By: #### B MP #### [facility] [address] [place] [address] Dr. Carrington Chandler MCH (RBC) [Entitic mass] 29.8 pg Normal 25.9-34.0 [facility] Comment on above: Performed By: #### B MP #### [facility] [address] [place] [address] Dr. Carrington Chandler MCHC (RBC) [Mass/Vol] 33.4 g/dL Normal 29.9-35.2 [facility] Comment on above: Performed By: #### B MP #### [facility] [address] [place] [address] Dr. Carrington Chandler MCV (RBC) [Entitic vol] 89.1 fL Normal 80.0-94.0 [facility] Comment on above: Performed By: #### B MP #### [facility] [address] [address] [address] Carrington Chandler MONO # 0.5 103/ul Normal 0.3-0.8 [facility] Comment on above: Performed By: #### B MP #### [facility] [address] [address] [address] Carrington Chandler Monocytes/100 WBC (Bld) 11.0 % Normal 1.7-12.0 [facility] Comment on above: Performed By: #### B MP #### [facility] [address] [address] [address] Carrington Chandler NEUT # 2.2 103/ul Normal 1.4-6.5 [facility] Comment on above: Performed By: #### B MP #### [facility] [address] [place] [address] Dr. Carrington Chandler Neutrophils/100 WBC (Bld) 51.6 % Normal 43.0-75.0 [facility] Comment on above: Performed By: #### B MP #### [facility] [address] [address] [address] Carrington Chandler Platelet mean volume (Bld) [Entitic vol] 9.0 fL Critically low 9.5-13.5 [facility] Comment on above: Performed By: #### B MP #### [facility] [address] [address] [address] Carrington Chandler PLT 147 103/ul Critically low 150-450 [facility] Comment on above: Performed By: #### B MP #### [facility] [address] [address] [address] Carrington Chandelr RBC 4.13 106/ul Critically low 4.70-6.[address] [facility] Comment on above: Performed By: #### B MP #### [facility] [address] [address] [address] Carrington Chandler WBC 4.4 103/ul Normal 4.0-11.0 [facility] Comment on above: Performed By: #### B MP #### [facility] [address] [address] [address] Carrington Chandler CULTURE SPUTUMon 07-10-2022 CULTURE SPUTUM Culture Observations : NORMAL RESPIRATORY SANDY. Normal [facility] Comment on above: Performed By: #### C MP #### [facility] [address] [place] [address] Dr. Carrington Chandler MAGNESIUMon 07-10-2022 Magnesium [Mass/Vol] 2.0 mg/dL Normal 1.8-2.4 [facility] Comment on above: Performed By: #### C MP #### [facility] [address] [place] [address] Dr. Carrington Chandler PROF 14(COMP METB)on 022 Albumin [Mass/Vol] 2.8 g/dL Critically low 3.4-5.0 [facility] Comment on above: Performed By: #### B MP #### [facility] [address] [place] [address] Dr. Carrington Chandler Albumin/Globulin [Mass ratio] 0.8 {ratio} Normal [facility] Comment on above: Performed By: #### B MP #### [facility] [address] [place] [address] Dr. Carrington Chandler ALP [Catalytic activity/Vol] 55 U/L Normal 46-116 [facility] Comment on above: Performed By: #### B MP #### [facility] [address] [place] [address] Dr. Carrington Chandler ALT [Catalytic activity/Vol] 22 U/L Normal 16-63 [facility] Comment on above: Performed By: #### B MP #### [facility] [address] [place] [address] Dr. Carrington Chandler Anion gap [Moles/Vol] 10.3 mmol/L Normal [facility] Comment on above: Performed By: #### B MP #### [facility] [address] [place] [address] Dr. Carrington Chandler AST [Catalytic activity/Vol] 22 U/L Normal 15-37 [facility] Comment on above: Performed By: #### B MP #### [facility] [address] [address] [address] Carrington Chandler Bilirubin [Mass/Vol] 0.2 mg/dL Normal 0.2-1.0 [facility] Comment on above: Performed By: #### B MP #### [facility] [address] [address] [address] Carrington Chandler Calcium [Mass/Vol] 8.0 mg/dL Critically low 8.5-10.1 Th [facility] Comment on above: Performed By: #### B MP #### [facility] [address] [address] [address] Carrington Chandler Chloride [Moles/Vol] 105 mmol/L Normal 98-107 [facility] Comment on above: Performed By: #### B MP #### [facility] [address] [place] [address] Dr. Carrington Chandler CO2 [Moles/Vol] 28.1 mmol/L Normal 21.0-32.0 [facility] Comment on above: Performed By: #### B MP #### [facility] [address] [place] [address] Dr. Carrington Chandler Creatinine [Mass/Vol] 0.89 mg/dL Normal 0.70-1.30 [facility] Comment on above: Performed By: #### B MP #### [facility] [address] [place] [address] Dr. Carrington Chandler EGFR-AF SWAZI >60 Normal >=60 [facility] Comment on above: Performed By: #### B MP #### [facility] [address] [place] [address] Dr. Carrington hCandler EGFR-NON AF SWAZI >60 Normal >=60 [facility] Comment on above: Performed By: #### B MP #### [facility] [address] [place] [address] Dr. Carrington Chandler Globulin (S) [Mass/Vol] 3.7 g/dL Normal [facility] Comment on above: Performed By: #### B MP #### [facility] [address] [place] [address] Dr. Carrington Chandler Glucose [Mass/Vol] 124 mg/dL Critically high 74-106 T [facility] Comment on above: Performed By: #### B MP #### [facility] [address] [address] [address] Carrington Chandler Potassium [Moles/Vol] 3.4 mmol/L Critically low 3.5-5.1 [facility] Comment on above: Performed By: #### B MP #### [facility] [address] [place] [address] Dr. Carrington Chandler Protein [Mass/Vol] 6.5 g/dL Normal 6.4-8.2 [facility] Comment on above: Performed By: #### B MP #### [facility] [address] [place] [address] Dr. Carrington Chandler Sodium [Moles/Vol] 140 mmol/L Normal 136-145 [facility] Comment on above: Performed By: #### B MP #### [facility] [address] [place] [address] Dr. Carrington Chandler Urea nitrogen [Mass/Vol] 15.0 mg/dL Normal 7.0-18.0 [facility] Comment on above: Performed By: #### B MP #### [facility] [address] [place] [address] Dr. Carrington Chandler Urea nitrogen/Creatinine [Mass ratio] 16.9 mg/mg Normal [facility] Comment on above: Performed By: #### B MP #### [facility] [address] [place] [address] Dr. Carrington Chandler CBC AUTO DIFFon 07-09-2022 BASO # 0.0 103/ul Normal 0.0-0.1 [facility] Comment on above: Performed By: #### A MY, CMP, LIPA #### [facility] [address] [place] [address] Dr. Carrington Chandler Basophils/100 WBC (Bld) 0.2 % Normal 0.2-2.0 [facility] Comment on above: Performed By: #### A MY, CMP, LIPA #### [facility] [address] [address] [address] Carrington Chandler EO # 0.1 103/ul Normal 0.0-0.7 [facility] Comment on above: Performed By: #### A MY, CMP, LIPA #### [facility] [address] [place] [address] Dr. Carrington Chandler Eosinophils/100 WBC (Bld) 1.9 % Normal 0.9-7.0 [facility] Comment on above: Performed By: #### A MY, CMP, LIPA #### [facility] [address] [place] [address] Dr. Carrington Chandler Erythrocyte distribution width (RBC) [Ratio] 12.6 % Normal 11.0-15.0 [facility] Comment on above: Performed By: #### A MY, CMP, LIPA #### [facility] [address] [place] [address] Dr. Carrington Chandler Hematocrit (Bld) [Volume fraction] 38.8 % Critically low 42.0-54.0 [facility] Comment on above: Performed By: #### A MY, CMP, LIPA #### [facility] [address] [place] [address] Dr. Carrington Chandler Hemoglobin (Bld) [Mass/Vol] 12.9 g/dL Critically low 14.0-18.0 [facility] Comment on above: Performed By: #### A MY, CMP, LIPA #### [facility] [address] [place] [address] Dr. Carrington Chandler IG # 0.01 10e3/ul Normal 0.00-0.03 [facility] Comment on above: Performed By: #### A MY, CMP, LIPA #### [facility] [address] [place] [address] Dr. Carrington Chandler IG % 0.2 % Normal 0.0-0.5 [facility] Comment on above: Performed By: #### A MY, CMP, LIPA #### [facility] [address] [place] [address] Dr. Carrington Chandler LYMPH # 1.7 103/ul Normal 1.2-3.8 [facility] Comment on above: Performed By: #### A MY, CMP, LIPA #### [facility] [address] [place] [address] Dr. Carrington Chandler Lymphocytes/100 WBC (Bld) 34.7 % Normal 20.5-60.0 [facility] Comment on above: Performed By: #### A MY, CMP, LIPA #### [facility] [address] [place] [address] Dr. Carrington Chandler MANUAL DIFF REQ NO Normal [facility] Comment on above: Performed By: #### A MY, CMP, LIPA #### [facility] [address] [place] [address] Dr. Carrington Chandler MCH (RBC) [Entitic mass] 29.9 pg Normal 25.9-34.0 [facility] Comment on above: Performed By: #### A MY, CMP, LIPA #### [facility] [address] [place] [address] Dr. Carrington Chandler MCHC (RBC) [Mass/Vol] 33.2 g/dL Normal 29.9-35.2 [facility] Comment on above: Performed By: #### A MY, CMP, LIPA #### [facility] [address] [place] [address] Dr. Carrington Chandler MCV (RBC) [Entitic vol] 90.0 fL Normal 80.0-94.0 [facility] Comment on above: Performed By: #### A MY, CMP, LIPA #### [facility] [address] [place] [address] Dr. Carrington Chandler MONO # 0.5 103/ul Normal 0.3-0.8 [facility] Comment on above: Performed By: #### A MY, CMP, LIPA #### [facility] [address] [place] [address] Dr. Carrington Chandler Monocytes/100 WBC (Bld) 10.4 % Normal 1.7-12.0 [facility] Comment on above: Performed By: #### A MY, CMP, LIPA #### [facility] [address] [place] [address] Dr. Carrington Chandler NEUT # 2.5 103/ul Normal 1.4-6.5 [facility] Comment on above: Performed By: #### A MY, CMP, LIPA #### [facility] [address] [place] [address] Dr. Carrington Chandler Neutrophils/100 WBC (Bld) 52.6 % Normal 43.0-75.0 [facility] Comment on above: Performed By: #### A MY, CMP, LIPA #### [facility] [address] [place] [address] Dr. Carrington Chandler Platelet mean volume (Bld) [Entitic vol] 9.0 fL Critically low 9.5-13.5 [facility] Comment on above: Performed By: #### A MY, CMP, LIPA #### [facility] [address] [place] [address] Dr. Carrington Chandler PLT 155 103/ul Normal 150-450 [facility] Comment on above: Performed By: #### A MY, CMP, LIPA #### [facility] [address] [place] [address] Dr. Carrington Chandler RBC 4.31 106/ul Critically low 4.70-6.[address] [facility] Comment on above: Performed By: #### A MY, CMP, LIPA #### [facility] [address] [place] [address] Dr. Carrington Chandler WBC 4.8 103/ul Normal 4.0-11.0 [facility] Comment on above: Performed By: #### A MY, CMP, LIPA #### [facility] [address] [place] [address] Dr. Carrington Chandler Covid-19 PCR ([facility])on 06-25 SARS-CoV-2 (COVID-19) RNA CHARLIE+probe Ql (Unsp spec) Not detected Normal NOT DETECTED [facility] Comment on above: Result Comment: When [...] for this test is supported by the Radiology Interventional Physician of Health and Human Service's declaration that [...] used). Performed By: #### C MP #### [facility] [address] [place] [address] Dr. Carrington Chandler ER URINE PROFILEon 2 Bilirubin Ql (U) Negative Normal NEGATIVE [facility] Comment on above: Performed By: #### C MP #### [facility] [address] [place] [address] Dr. Carrington Chandler Clarity (U) CLEAR Normal CLEAR [facility] Comment on above: Performed By: #### C MP #### [facility] [address] [place] [address] Dr. Carrington Chandler Color (U) LT. YELLOW Normal YELLOW [facility] Comment on above: Performed By: #### C MP #### [facility] [address] [place] [address] Dr. Carrington Chandler ERUAHD A micrscopic examina tion will be performed if indicated. Normal [facility] Comment on above: Performed By: #### C MP #### [facility] [address] [place] [address] Dr. Carrington Chandler Glucose Ql (U) Negative Normal NEGATIVE [facility] Comment on above: Performed By: #### C MP #### [facility] [address] [place] [address] Dr. Carrington Chandler Hemoglobin Ql (U) Negative Normal NEGATIVE [facility] Comment on above: Performed By: #### C MP #### [facility] [address] [place] [address] Dr. Carrington Chandler Ketones Ql (U) Negative Normal NEGATIVE [facility] Comment on above: Performed By: #### C MP #### [facility] [address] [place] [address] Dr. Carrington Chandler LEUKOCYTES Negative Normal NEGATIVE [facility] Comment on above: Performed By: #### C MP #### [facility] [address] [place] [address] Dr. Carrington Chandler Nitrite Ql (U) Negative Normal NEGATIVE [facility] Comment on above: Performed By: #### C MP #### [facility] [address] [place] [address] Dr. Carrington Chandler pH (U) 6.0 [pH] Normal 5-9 [facility] Comment on above: Performed By: #### C MP #### [facility] [address] [place] [address] Dr. Carrington Chandler SPEC GRAVITY 1.010 Normal 1.005-<=1. 025 [facility] Comment on above: Performed By: #### C MP #### [facility] [address] [place] [address] Dr. Carrington Chandler UA PROTEIN Negative Normal NEGATIVE/ TRACE [facility] Comment on above: Performed By: #### C MP #### [facility] [address] [place] [address] Dr. Carrington Chandler UR MICRO IND NOT INDICATED Normal [facility] Comment on above: Performed By: #### C MP #### [facility] [address] [place] [address] Dr. Carrington Chandler Urobilinogen Qn (U) 0.2 {Lars'U}/dL Normal 0.2 - 1. 0 [facility] Comment on above: Performed By: #### C MP #### [facility] [address] [place] [address] Dr. Carrington Chandler PROF CHEM 8 (BAS METB)on Anion gap [Moles/Vol] 6.6 mmol/L Normal [facility] Comment on above: Performed By: #### B MP #### [facility] [address] [address] [address] Carrington Chandler Calcium [Mass/Vol] 8.2 mg/dL Critically low 8.5-10.1 Th [facility] Comment on above: Performed By: #### B MP #### [facility] [address] [address] [address] Carrington Chandler Chloride [Moles/Vol] 102 mmol/L Normal 98-107 [facility] Comment on above: Performed By: #### B MP #### [facility] [address] [place] [address] Dr. Carrington Chandler CO2 [Moles/Vol] 31.2 mmol/L Normal 21.0-32.0 [facility] Comment on above: Performed By: #### B MP #### [facility] [address] [place] [address] Dr. Carrington Chandler Creatinine [Mass/Vol] 0.90 mg/dL Normal 0.70-1.30 [facility] Comment on above: Performed By: #### B MP #### [facility] [address] [place] [address] Dr. Carrington Chandler EGFR-AF SWAZI >60 Normal >=60 [facility] Comment on above: Performed By: #### B MP #### [facility] [address] [place] [address] Dr. Carrington Chandler EGFR-NON AF SWAZI >60 Normal >=60 [facility] Comment on above: Performed By: #### B MP #### [facility] [address] [address] [address] Carrington Chandler Glucose [Mass/Vol] 100 mg/dL Normal 74-106 [facility] Comment on above: Performed By: #### B MP #### [facility] [address] [place] [address] Dr. Carrington Chandler Potassium [Moles/Vol] 3.8 mmol/L Normal 3.5-5.1 [facility] Comment on above: Performed By: #### B MP #### [facility] [address] [place] [address] Dr. Carrington Chandler Sodium [Moles/Vol] 136 mmol/L Normal 136-145 [facility] Comment on above: Performed By: #### B MP #### [facility] [address] [place] [address] Dr. Carrington Chandler Urea nitrogen [Mass/Vol] 16.0 mg/dL Normal 7.0-18.0 [facility] Comment on above: Performed By: #### B MP #### [facility] [address] [place] [address] Dr. Carrington Chandler Urea nitrogen/Creatinine [Mass ratio] 17.8 mg/mg Normal [facility] Comment on above: Performed By: #### B MP #### [facility] [address] [place] [address] Dr. Carrington Chandler XR CHEST 1 Von [...] by: TEE LEWIS Date: 2022-07-09 20:51 Normal [facility] AMYLASEon 07-08-2022 Amylase [Catalytic activity/Vol] 40 U/L Normal 25-115 [facility] Comment on above: Performed By: #### A MY, CMP, LIPA #### [facility] [address] [place] [address] Dr. Carrington Chandler CBC AUTO DIFFon 07-08-2022 BASO # 0.0 103/ul Normal 0.0-0.1 [facility] Comment on above: Performed By: #### C BC #### [facility] [address] [place] [address] Dr. Carrington Chandler Basophils/100 WBC (Bld) 0.3 % Normal 0.2-2.0 [facility] Comment on above: Performed By: #### C BC #### [facility] [address] [place] [address] Dr. Carrington Chandler EO # 0.1 103/ul Normal 0.0-0.7 [facility] Comment on above: Performed By: #### C BC #### [facility] [address] [place] [address] Dr. Carrington Chandler Eosinophils/100 WBC (Bld) 1.2 % Normal 0.9-7.0 [facility] Comment on above: Performed By: #### C BC #### [facility] [address] [place] [address] Dr. Carrington Chandler Erythrocyte distribution width (RBC) [Ratio] 12.9 % Normal 11.0-15.0 [facility] Comment on above: Performed By: #### C BC #### [facility] [address] [place] [address] Dr. Carrington Chandler Hematocrit (Bld) [Volume fraction] 43.2 % Normal 42.0-54.0 [facility] Comment on above: Performed By: #### C BC #### [facility] [address] [place] [address] Dr. Carrington Chandler Hemoglobin (Bld) [Mass/Vol] 14.4 g/dL Normal 14.0-18.0 [facility] Comment on above: Performed By: #### C BC #### [facility] [address] [place] [address] Dr. Carrington Chandler IG # 0.02 10e3/ul Normal 0.00-0.03 [facility] Comment on above: Performed By: #### C BC #### [facility] [address] [place] [address] Dr. Carrington Chandler IG % 0.3 % Normal 0.0-0.5 [facility] Comment on above: Performed By: #### C BC #### [facility] [address] [place] [address] Dr. Carrington Chandler LYMPH # 1.6 103/ul Normal 1.2-3.8 [facility] Comment on above: Performed By: #### C BC #### [facility] [address] [place] [address] Dr. Carrington Chandler Lymphocytes/100 WBC (Bld) 24.0 % Normal 20.5-60.0 [facility] Comment on above: Performed By: #### C BC #### [facility] [address] [place] [address] Dr. Carrington Chandler MANUAL DIFF REQ NO Normal [facility] Comment on above: Performed By: #### C BC #### [facility] [address] [place] [address] Dr. Carrington Chandler MCH (RBC) [Entitic mass] 30.2 pg Normal 25.9-34.0 [facility] Comment on above: Performed By: #### C BC #### [facility] [address] [place] [address] Dr. Carrington Chandler MCHC (RBC) [Mass/Vol] 33.3 g/dL Normal 29.9-35.2 [facility] Comment on above: Performed By: #### C BC #### [facility] [address] [place] [address] Dr. Carrington Chandler MCV (RBC) [Entitic vol] 90.6 fL Normal 80.0-94.0 [facility] Comment on above: Performed By: #### C BC #### [facility] [address] [place] [address] Dr. Carrington Chandler MONO # 0.6 103/ul Normal 0.3-0.8 [facility] Comment on above: Performed By: #### C BC #### [facility] [address] [place] [address] Dr. Carrington Chandler Monocytes/100 WBC (Bld) 9.4 % Normal 1.7-12.0 [facility] Comment on above: Performed By: #### C BC #### [facility] [address] [place] [address] Dr. Carrington Chandler NEUT # 4.4 103/ul Normal 1.4-6.5 [facility] Comment on above: Performed By: #### C BC #### [facility] [address] [place] [address] Dr. Carrington Chandler Neutrophils/100 WBC (Bld) 64.8 % Normal 43.0-75.0 [facility] Comment on above: Performed By: #### C BC #### [facility] [address] [address] [address] Carrington Chandler Platelet mean volume (Bld) [Entitic vol] 9.5 fL Normal 9.5-13.5 [facility] Comment on above: Performed By: #### C BC #### [facility] [address] [address] [address] Carrington Chandler PLT 174 103/ul Normal 150-450 [facility] Comment on above: Performed By: #### C BC #### [facility] [address] [address] [address] Carrington Chandler RBC 4.77 106/ul Normal 4.70-6.10 [facility] Comment on above: Performed By: #### C BC #### [facility] [address] [address] [address] Carrington Chandler WBC 6.7 103/ul Normal 4.0-11.0 [facility] Comment on above: Performed By: #### C BC #### [facility] [address] [place] [address] Dr. Carrington Chandler Covid-19 PCR ([facility])on 06-25 SARS-CoV-2 (COVID-19) RNA CHARLIE+probe Ql (Unsp spec) Not detected Normal NOT DETECTED [facility] Comment on above: Result Comment: When [...] for this test is supported by the Radiology Interventional Physician of Health and Human Service's declaration that [...] used). Performed By: #### B MP #### [facility] [address] [place] [address] Dr. Carrington Chandler INFLUENZA A AND B AGon 07-08 INFLUANEGH SEE BELOW Normal [facility] Comment on above: Result Comment: Nega tive for Flu A protein angiten. Infection due to Flu A cannot be ruled out. Flu A angiten in the sample may be below the detection limit of the test. Performed By: #### B MP #### [facility] [address] [place] [address] Dr. Carrignton Chandler INFLUBNEGH SEE BELOW Normal [facility] Comment on above: Result Comment: Nega tive for Flu B protein antigen. Infection due to Flu B cannot be ruled out. Flu B antigen in the sample may be below the detection limit of the test. Performed By: #### B MP #### [facility] [address] [place] [address] Dr. Carrington Chandler INFLUENZA A AG Negative Normal NEGATIVE SEE COMMENT [facility] Comment on above: Performed By: #### B MP #### [facility] [address] [place] [address] Dr. Carrington Chandler INFLUENZA B AG Negative Normal NEGATIVE SEE COMMENT [facility] Comment on above: Performed By: #### B MP #### [facility] [address] [place] [address] Dr. Carrington Chandler INTERNAL CONTROLS Within Normal Limits Normal Wi thin Normal Limits [facility] Comment on above: Performed By: #### B MP #### [facility] [address] [place] [address] Dr. Carrington Chandler LIPASEon 07-08-2022 Lipase [Catalytic activity/Vol] 195.0 U/L Normal 73.0-393.0 [facility] Comment on above: Performed By: #### A MY, CMP, LIPA #### [facility] [address] [place] [address] Dr. Carrington Chandler PROF 14(COMP METB)on 12-14-2 022 Albumin [Mass/Vol] 3.4 g/dL Normal 3.4-5.0 [facility] Comment on above: Performed By: #### A MY, CMP, LIPA #### [facility] [address] [address] [address] Carrington Chandler Albumin/Globulin [Mass ratio] 0.8 {ratio} [facility] [facility] Comment on above: Performed By: #### A MY, CMP, LIPA #### [facility] [address] [address] [address] Carrington Chandler ALP [Catalytic activity/Vol] 61 U/L Normal 46-116 [facility] Comment on above: Performed By: #### A MY, CMP, LIPA #### [facility] [address] [place] [address] Dr. Carrington Chandler ALT [Catalytic activity/Vol] 26 U/L Normal 16-63 [facility] Comment on above: Performed By: #### A MY, CMP, LIPA #### [facility] [address] [place] [address] Dr. Carrington Chandler Anion gap [Moles/Vol] 11.0 mmol/L Normal [facility] Comment on above: Performed By: #### A MY, CMP, LIPA #### [facility] [address] [place] [address] Dr. Carrington Chandler AST [Catalytic activity/Vol] 30 U/L Normal 15-37 [facility] Comment on above: Performed By: #### A MY, CMP, LIPA #### [facility] [address] [place] [address] Dr. Carrington Chandler Bilirubin [Mass/Vol] 0.3 mg/dL Normal 0.2-1.0 [facility] Comment on above: Performed By: #### A MY, CMP, LIPA #### [facility] [address] [place] [address] Dr. Carrington Chandler Calcium [Mass/Vol] 8.4 mg/dL Critically low 8.5-10.1 [facility] Comment on above: Performed By: #### A MY, CMP, LIPA #### [facility] [address] [address] [address] Carrington Chandler Chloride [Moles/Vol] 102 mmol/L Normal 98-107 [facility] Comment on above: Performed By: #### A MY, CMP, LIPA #### [facility] [address] [address] [address] Carrington Chandler CO2 [Moles/Vol] 28.1 mmol/L Normal 21.0-32.0 [facility] Comment on above: Performed By: #### A MY, CMP, LIPA #### [facility] [address] [address] [address] Carrington Chandler Creatinine [Mass/Vol] 0.99 mg/dL Normal 0.70-1.30 [facility] Comment on above: Performed By: #### A MY, CMP, LIPA #### [facility] [address] [place] [address] Dr. Carrington Chandler EGFR-AF SWAZI >60 Normal >=60 [facility] Comment on above: Performed By: #### A MY, CMP, LIPA #### [facility] [address] [place] [address] Dr. Carrington Chandler EGFR-NON AF SWAZI >60 Normal >=60 [facility] Comment on above: Performed By: #### A MY, CMP, LIPA #### [facility] [address] [place] [address] Dr. Carrington Chandler Globulin (S) [Mass/Vol] 4.3 g/dL Normal [facility] Comment on above: Performed By: #### A MY, CMP, LIPA #### [facility] [address] [place] [address] Dr. Carrington Chandler Glucose [Mass/Vol] 107 mg/dL Critically high 74-106 [facility] Comment on above: Performed By: #### A MY, CMP, LIPA #### [facility] [address] [place] [address] Dr. Carrington Chandler Potassium [Moles/Vol] 4.1 mmol/L Normal 3.5-5.1 [facility] Comment on above: Performed By: #### A MY, CMP, LIPA #### [facility] [address] [place] [address] Dr. Carrington Chandler Protein [Mass/Vol] 7.7 g/dL Normal 6.4-8.2 [facility] Comment on above: Performed By: #### A MY, CMP, LIPA #### [facility] [address] [place] [address] Dr. Carrington Chandler Sodium [Moles/Vol] 137 mmol/L Normal 136-145 [facility] Comment on above: Performed By: #### A MY, CMP, LIPA #### [facility] [address] [place] [address] Dr. Carrington Chandler Urea nitrogen [Mass/Vol] 23.0 mg/dL Critically high 7.0-18.0 [facility] Comment on above: Performed By: #### A MY, CMP, LIPA #### [facility] [address] [place] [address] Dr. Carrington Chandler Urea nitrogen/Creatinine [Mass ratio] 23.2 mg/mg Normal [facility] Comment on above: Performed By: #### A MY, CMP, LIPA #### [facility] [address] [place] [address] Dr. Carrington Chandler CBC AUTO DIFFon 07-03-2022 BASO # 0.0 103/ul Normal 0.0-0.1 [facility] Comment on above: Performed By: #### C MP #### [facility] [address] [place] [address] Dr. Carrington Chandler Basophils/100 WBC (Bld) 0.5 % Normal 0.2-2.0 [facility] Comment on above: Performed By: #### C MP #### [facility] [address] [place] [address] Dr. Carrington Chandler EO # 0.3 103/ul Normal 0.0-0.7 [facility] Comment on above: Performed By: #### C MP #### [facility] [address] [place] [address] Dr. Carrington Chandler Eosinophils/100 WBC (Bld) 4.7 % Normal 0.9-7.0 [facility] Comment on above: Performed By: #### C MP #### [facility] [address] [place] [address] Dr. Carrington Chandler Erythrocyte distribution width (RBC) [Ratio] 12.7 % Normal 11.0-15.0 [facility] Comment on above: Performed By: #### C MP #### [facility] [address] [place] [address] Dr. Carrington Chandler Hematocrit (Bld) [Volume fraction] 38.8 % Critically low 42.0-54.0 [facility] Comment on above: Performed By: #### C MP #### [facility] [address] [place] [address] Dr. Carrington Chandler Hemoglobin (Bld) [Mass/Vol] 13.2 g/dL Critically low 14.0-18.0 [facility] Comment on above: Performed By: #### C MP #### [facility] [address] [place] [address] Dr. Carrington Chandler IG # 0.01 10e3/ul Normal 0.00-0.03 [facility] Comment on above: Performed By: #### C MP #### [facility] [address] [place] [address] Dr. Carrington Chandler IG % 0.2 % Normal 0.0-0.5 [facility] Comment on above: Performed By: #### C MP #### [facility] [address] [place] [address] Dr. Carrington Chandler LYMPH # 1.4 103/ul Normal 1.2-3.8 [facility] Comment on above: Performed By: #### C MP #### [facility] [address] [place] [address] Dr. Carrington Chandler Lymphocytes/100 WBC (Bld) 25.2 % Normal 20.5-60.0 [facility] Comment on above: Performed By: #### C MP #### [facility] [address] [place] [address] Dr. Carrington Chandler MANUAL DIFF REQ NO Normal [facility] Comment on above: Performed By: #### C MP #### [facility] [address] [address] [address] Carrington Chandler MCH (RBC) [Entitic mass] 30.3 pg Normal 25.9-34.0 [facility] Comment on above: Performed By: #### C MP #### [facility] [address] [address] [address] Carrington Chandler MCHC (RBC) [Mass/Vol] 34.0 g/dL Normal 29.9-35.2 [facility] Comment on above: Performed By: #### C MP #### [facility] [address] [address] [address] Carrington Chandler MCV (RBC) [Entitic vol] 89.2 fL Normal 80.0-94.0 [facility] Comment on above: Performed By: #### C MP #### [facility] [address] [place] [address] Dr. Carrington Chandler MONO # 0.6 103/ul Normal 0.3-0.8 [facility] Comment on above: Performed By: #### C MP #### [facility] [address] [place] [address] Dr. Carrington Chandler Monocytes/100 WBC (Bld) 10.2 % Normal 1.7-12.0 [facility] Comment on above: Performed By: #### C MP #### [facility] [address] [place] [address] Dr. Carrington Chandler NEUT # 3.3 103/ul Normal 1.4-6.5 [facility] Comment on above: Performed By: #### C MP #### [facility] [address] [place] [address] Dr. Carrington Chandler Neutrophils/100 WBC (Bld) 59.2 % Normal 43.0-75.0 [facility] Comment on above: Performed By: #### C MP #### [facility] [address] [place] [address] Dr. Carrington Chandler Platelet mean volume (Bld) [Entitic vol] 9.1 fL Critically low 9.5-13.5 [facility] Comment on above: Performed By: #### C MP #### [facility] [address] [address] [address] Carrington Chandler PLT 199 103/ul Normal 150-450 [facility] Comment on above: Performed By: #### C MP #### [facility] [address] [address] [address] Carrington Chandler RBC 4.35 106/ul Critically low 4.70-6.10 [facility] Comment on above: Performed By: #### C MP #### [facility] [address] [address] [address] Carrington Chandler WBC 5.5 103/ul Normal 4.0-11.0 [facility] Comment on above: Performed By: #### C MP #### [facility] [address] [place] [address] Dr. Carrington Chandler Covid-19 PCR ([facility])on SARS-CoV-2 (COVID-19) RNA CHARLIE+probe Ql (Unsp spec) Not detected Normal NOT DETECTED [facility] Comment on above: Result Comment: When [...] for this test is supported by the Radiology Interventional Physician of Health and Human Service's declaration that [...] used). Performed By: #### B MP #### [facility] [address] [place] [address] Dr. Carrington Chandler PROF 14(COMP METB)on 022 Albumin [Mass/Vol] 3.8 g/dL Normal 3.4-5.0 [facility] Comment on above: Performed By: #### C MP #### [facility] [address] [place] [address] Dr. Carrington Chandler Albumin/Globulin [Mass ratio] 1.0 {ratio} Normal [facility] Comment on above: Performed By: #### C MP #### [facility] [address] [place] [address] Dr. Carrington Chandler ALP [Catalytic activity/Vol] 69 U/L Normal 46-116 [facility] Comment on above: Performed By: #### C MP #### [facility] [address] [place] [address] Dr. Carrington Chandler ALT [Catalytic activity/Vol] 18 U/L Normal 16-63 [facility] Comment on above: Performed By: #### C MP #### [facility] [address] [place] [address] Dr. Carrington Chandler Anion gap [Moles/Vol] 13.3 mmol/L Normal [facility] Comment on above: Performed By: #### C MP #### [facility] [address] [place] [address] Dr. Carrington Chandler AST [Catalytic activity/Vol] 19 U/L Normal 15-37 [facility] Comment on above: Performed By: #### C MP #### [facility] [address] [place] [address] Dr. Carrington Chandler Bilirubin [Mass/Vol] 0.3 mg/dL Normal 0.2-1.0 [facility] Comment on above: Performed By: #### C MP #### [facility] [address] [place] [address] Dr. Carrington Chandler Calcium [Mass/Vol] 9.0 mg/dL Normal 8.5-10.1 [facility] Comment on above: Performed By: #### C MP #### [facility] [address] [place] [address] Dr. Carrington Chandler Chloride [Moles/Vol] 101 mmol/L Normal 98-107 [facility] Comment on above: Performed By: #### C MP #### [facility] [address] [address] [address] Carrington Chandler CO2 [Moles/Vol] 26.7 mmol/L Normal 21.0-32.0 [facility] Comment on above: Performed By: #### C MP #### [facility] [address] [address] [address] Carrington Chandler Creatinine [Mass/Vol] 1.06 mg/dL Normal 0.70-1.30 [facility] Comment on above: Performed By: #### C MP #### [facility] [address] [place] [address] Dr. Carrington Chandler EGFR-AF SWAZI >60 Normal >=60 [facility] Comment on above: Performed By: #### C MP #### [facility] [address] [place] [address] Dr. Carrington Chandler EGFR-NON AF SWAZI >60 Normal >=60 [facility] Comment on above: Performed By: #### C MP #### [facility] [address] [address] [address] Carrington Chandler Globulin (S) [Mass/Vol] 3.8 g/dL Normal [facility] Comment on above: Performed By: #### C MP #### [facility] [address] [place] [address] Dr. Carrington Chandler Glucose [Mass/Vol] 98 mg/dL Normal 74-106 [facility] Comment on above: Performed By: #### C MP #### [facility] [address] [place] [address] Dr. Carrington Chandler Potassium [Moles/Vol] 4.0 mmol/L Normal 3.5-5.1 [facility] Comment on above: Performed By: #### C MP #### [facility] [address] [address] [address] Carrington Chandler Protein [Mass/Vol] 7.6 g/dL Normal 6.4-8.2 [facility] Comment on above: Performed By: #### C MP #### [facility] [address] [address] [address] Carrington Chandler Sodium [Moles/Vol] 137 mmol/L Normal 136-145 [facility] Comment on above: Performed By: #### C MP #### [facility] [address] [address] [address] Carrington Chandler Urea nitrogen [Mass/Vol] 21.0 mg/dL Critically high 7.0-18.0 [facility] Comment on above: Performed By: #### C MP #### [facility] [address] [address] [address] Carrington Chandler Urea nitrogen/Creatinine [Mass ratio] 19.8 mg/mg Normal [facility] Comment on above: Performed By: #### C MP #### [facility] [address] [address] [address] Carrington Chandler XR CHEST 1 Von [...] by: CYNTHIA VASQUEZ Date: 2022-07-03 21:16 Normal [facility] CBC AUTO DIFFon 02-03-2022 BASO # 0.0 103/ul Normal 0.0-0.1 [facility] Comment on above: Performed By: #### C BC #### [facility] [address] [address] [address] Carrington Chandler Basophils/100 WBC (Bld) 0.3 % Normal 0.2-2.0 [facility] Comment on above: Performed By: #### C BC #### [facility] [address] [place] [address] Dr. Carrington Chandler EO # 0.1 103/ul Normal 0.0-0.7 [facility] Comment on above: Performed By: #### C BC #### [facility] [address] [place] [address] Dr. Carrington Chandler Eosinophils/100 WBC (Bld) 0.9 % Normal 0.9-7.0 [facility] Comment on above: Performed By: #### C BC #### [facility] [address] [place] [address] Dr. Carrington Chandler Erythrocyte distribution width (RBC) [Ratio] 13.9 % Normal 11.0-15.0 [facility] Comment on above: Performed By: #### C BC #### [facility] [address] [place] [address] Dr. Carrington Chandler Hematocrit (Bld) [Volume fraction] 40.4 % Critically low 42.0-54.0 [facility] Comment on above: Performed By: #### C BC #### [facility] [address] [place] [address] Dr. Carrington Chandler Hemoglobin (Bld) [Mass/Vol] 13.4 g/dL Critically low 14.0-18.0 [facility] Comment on above: Performed By: #### C BC #### [facility] [address] [place] [address] Dr. Carrington Chandler IG # 0.03 10e3/ul Normal 0.00-0.03 [facility] Comment on above: Performed By: #### C BC #### [facility] [address] [place] [address] Dr. Carrington Chandler IG % 0.3 % Normal 0.0-0.5 [facility] Comment on above: Performed By: #### C BC #### [facility] [address] [place] [address] Dr. Carrington Chandler LYMPH # 1.5 103/ul Normal 1.2-3.8 [facility] Comment on above: Performed By: #### C BC #### [facility] [address] [place] [address] Dr. Carrington Chandler Lymphocytes/100 WBC (Bld) 12.3 % Critically low 20.5-60.0 [facility] Comment on above: Performed By: #### C BC #### [facility] [address] [place] [address] Dr. Carrington Chandler MANUAL DIFF REQ NO Normal [facility] Comment on above: Performed By: #### C BC #### [facility] [address] [place] [address] Dr. Carrington Chandler MCH (RBC) [Entitic mass] 30.0 pg Normal 25.9-34.0 [facility] Comment on above: Performed By: #### C BC #### [facility] [address] [place] [address] Dr. Carrington Chandler MCHC (RBC) [Mass/Vol] 33.2 g/dL Normal 29.9-35.2 [facility] Comment on above: Performed By: #### C BC #### [facility] [address] [place] [address] Dr. Carrington Chandler MCV (RBC) [Entitic vol] 90.6 fL Normal 80.0-94.0 [facility] Comment on above: Performed By: #### C BC #### [facility] [address] [place] [address] Dr. Carrington Chandler MONO # 1.0 103/ul Critically high 0.3-0.8 [facility] Comment on above: Performed By: #### C BC #### [facility] [address] [place] [address] Dr. Carrington Chandler Monocytes/100 WBC (Bld) 8.5 % Normal 1.7-12.0 [facility] Comment on above: Performed By: #### C BC #### [facility] [address] [place] [address] Dr. Carrington Chandler NEUT # 9.2 103/ul Critically high 1.4-6.[address] [facility] Comment on above: Performed By: #### C BC #### [facility] [address] [address] [address] Carrington Chandler Neutrophils/100 WBC (Bld) 77.7 % Critically high 43.0-75.0 [facility] Comment on above: Performed By: #### C BC #### [facility] [address] [address] [address] Carrington Chandler Platelet mean volume (Bld) [Entitic vol] 9.5 fL Normal 9.5-13.5 [facility] Comment on above: Performed By: #### C BC #### [facility] [address] [address] [address] Carrington Chanlder PLT 204 103/ul Normal 150-450 [facility] Comment on above: Performed By: #### C BC #### [facility] [address] [place] [address] Dr. Carrington Chandler RBC 4.46 106/ul Critically low 4.70-6.10 [facility] Comment on above: Performed By: #### C BC #### [facility] [address] [address] [address] Carrington Chandler WBC 11.9 103/ul Critically high 4.0-11.0 [facility] Comment on above: Performed By: #### C BC #### [facility] [address] [place] [address] Dr. Carrington Chandler Covid-19 PCR ([facility])on 01-23 SARS-CoV-2 (COVID-19) RNA CHARLIE+probe Ql (Unsp spec) Not detected Normal NOT DETECTED [facility] Comment on above: Result Comment: When [...] for this test is supported by the [place] of Health and Human Service's declaration that [...] longer be used). Performed By: #### [facility] #### [facility] [address] [place] [address] Dr. Carrington Chandler PROF 14(COMP METB)on 022 Albumin [Mass/Vol] 3.7 g/dL Normal 3.4-5.0 [facility] Comment on above: Performed By: #### C MP #### [facility] [address] [place] [address] Dr. Carrington Chandler Albumin/Globulin [Mass ratio] 0.9 {ratio} Normal [facility] Comment on above: Performed By: #### C MP #### [facility] [address] [place] [address] Dr. Carrington Chandler ALP [Catalytic activity/Vol] 62 U/L Normal 46-116 [facility] Comment on above: Performed By: #### C MP #### [facility] [address] [place] [address] Dr. Carrington Chandler ALT [Catalytic activity/Vol] 21 U/L Normal 16-63 [facility] Comment on above: Performed By: #### C MP #### [facility] [address] [place] [address] Dr. Carrington Chandler Anion gap [Moles/Vol] 12.3 mmol/L Normal Th [facility] Comment on above: Performed By: #### C MP #### [facility] [address] [place] [address] Dr. Carrington Chandler AST [Catalytic activity/Vol] 13 U/L Critically low 15-37 [facility] Comment on above: Performed By: #### C MP #### [facility] [address] [place] [address] Dr. Carrington Chandler Bilirubin [Mass/Vol] 0.5 mg/dL Normal 0.2-1.0 [facility] Comment on above: Performed By: #### C MP #### [facility] [address] [address] [address] Carrington Chandler Calcium [Mass/Vol] 9.1 mg/dL Normal 8.5-10.1 [facility] Comment on above: Performed By: #### C MP #### [facility] [address] [address] [address] Carrington Chandler Chloride [Moles/Vol] 102 mmol/L Normal 98-107 [facility] Comment on above: Performed By: #### C MP #### [facility] [address] [address] [address] Carrington Chandler CO2 [Moles/Vol] 24.9 mmol/L Normal 21.0-32.0 [facility] Comment on above: Performed By: #### C MP #### [facility] [address] [address] [address] Carrington Chandler Creatinine [Mass/Vol] 1.36 mg/dL Critically high 0.70-1.30 [facility] Comment on above: Performed By: #### C MP #### [facility] [address] [address] [address] Carrington Chandler EGFR-AF SWAZI >60 Normal >=60 [facility] Comment on above: Performed By: #### C MP #### [facility] [address] [address] [address] Carrington Chandler EGFR-NON AF SWAZI 53 mL/min/1.73m2 Critically low >=60 [facility] Comment on above: Performed By: #### C MP #### [facility] [address] [address] [address] Carrington Chandler Globulin (S) [Mass/Vol] 3.9 g/dL Normal [facility] Comment on above: Performed By: #### C MP #### [facility] [address] [address] [address] Carrington Chandler Glucose [Mass/Vol] 138 mg/dL Critically high 74-106 [facility] Comment on above: Performed By: #### C MP #### [facility] [address] [address] [address] Carrington Chandler Potassium [Moles/Vol] 4.2 mmol/L Normal 3.5-5.1 [facility] Comment on above: Performed By: #### C MP #### [facility] [address] [id number] Carrington Chandler Protein [Mass/Vol] 7.6 g/dL Normal 6.4-8.2 [facility] Comment on above: Performed By: #### C MP #### [facility] [address] [address] [address] Carrington Chandler Sodium [Moles/Vol] 135 mmol/L Critically low 136-145 Th [facility] Comment on above: Performed By: #### C MP #### [facility] [address] [address] [address] Carrington Chandler Urea nitrogen [Mass/Vol] 24.0 mg/dL Critically high 7.0-18.0 [facility] Comment on above: Performed By: #### C MP #### [facility] [address] [address] [address] Carrington Chandler Urea nitrogen/Creatinine [Mass ratio] 17.6 mg/mg Normal [facility] Comment on above: Performed By: #### C MP #### [facility] [address] [address] [address] Carrington Chandler XR CHEST 1 Von [...] by: DAREK MARX Date: 2022-02-03 02:09 Normal [facility] [facility] Vital Signs Date Time Vital Sign Value Performing Clinician Facility 06-24-2023 11:00-0500 Body height 171.45 cm Brock Modi Other [employer] Other 06-24-2023 11:00-0500 Body mass index (BMI) [Ratio] 34.56 kg/m2 Brock Modi Other [employer] Other 06-24-2023 11:00-0500 Body temperature 98.1 [degF] Brock Modi Other [employer] Other 06-24-2023 11:00-0500 Body weight 101.61 kg Brock Modi Other [employer] Other 06-24-2023 11:00-0500 Diastolic blood pressure 67 mm[Hg] Brock Modi Other [employer] Other 06-24-2023 11:00-0500 SaO2% (BldA) [Mass fraction] 95 % Brock Modi Other [employer] Other 06-24-2023 11:00-0500 Systolic blood pressure 109 mm[Hg] Brock Modi Other [employer] Other 03-16-2023 11:30-0400 Body height 171.45 cm Brock Modi Other [employer] Other 03-16-2023 11:30-0400 Body mass index (BMI) [Ratio] 33.48 kg/m2 Brock Noel [employer] Other 03-16-2023 11:30-0400 Body weight 98.43 kg Brock Modi Other [employer] Other 03-16-2023 11:30-0400 Diastolic blood pressure 67 mm[Hg] Brock Modi Other [employer] Other 03-16-2023 11:30-0400 SaO2% (BldA) [Mass fraction] 93 % Brock Modi Other [employer] Other 03-16-2023 11:30-0400 Systolic blood pressure 114 mm[Hg] Brock Modi Other [employer] Other 02-04-2023 13:30-0400 Body height 171.45 cm Brock Modi Other [employer] Other 02-04-2023 13:30-0400 Body mass index (BMI) [Ratio] 33.64 kg/m2 Brock Modi Other [employer] Other 02-04-2023 13:30-0400 Body weight 98.88 kg Brock Modi Other [employer] Other 02-04-2023 13:30-0400 Diastolic blood pressure 67 mm[Hg] Brock Modi Other [employer] Other 02-04-2023 13:30-0400 SaO2% (BldA) [Mass fraction] 96 % Brock Modi Other [employer] Other 02-04-2023 13:30-0400 Systolic blood pressure 117 mm[Hg] Brock Modi Other [employer] Other 12-24-2022 14:08-0400 Body height 167.64 cm Brock Modi Work Phone: [facility] 250 DO Work Phone: 12-24-2022 14:08-0400 Body mass index (BMI) [Ratio] 35.02 kg/m2 Brock Modi Work Phone: [facility] 250 DO Work Phone: 12-24-2022 14:08-0400 Body surface area Derived from formula 2.07 m2 Brock Modi Work Phone: [facility] 250 DO Work Phone: 12-24-2022 14:08-0400 Body weight 98.43 kg Brock Modi Work Phone: [facility] 250 DO Work Phone: 12-24-2022 14:08-0400 Diastolic blood pressure 80 mm[Hg] Brock Modi Work Phone: [facility] 250 DO Work Phone: 12-24-2022 14:08-0400 Heart rate 115 /min Brock Modi Work Phone: [facility] 250 DO Work Phone: 12-24-2022 14:08-0400 Systolic blood pressure 124 mm[Hg] Brock Modi Work Phone: [facility] 250 DO Work Phone: 11-27-2022 11:00-0400 Body height 171.45 cm Wagner Marrufo Other [employer] Other 11-27-2022 11:00-0400 Body mass index (BMI) [Ratio] 33.48 kg/m2 Wagner Marrufo Other [employer] Other 11-27-2022 11:00-0400 Body weight 98.43 kg Wagner Marrufo Other [employer] Other 11-12-2022 12:45-0400 Body height 171.45 cm Brock Modi Other [employer] Other 11-12-2022 12:45-0400 Body mass index (BMI) [Ratio] 33.48 kg/m2 Brock Modi Other [employer] Other 11-12-2022 12:45-0400 Body weight 98.43 kg Brock Modi Other [employer] Other 11-12-2022 12:45-0400 Diastolic blood pressure 78 mm[Hg] Brock Modi Other [employer] Other 11-12-2022 12:45-0400 SaO2% (BldA) [Mass fraction] 92 % Brock Modi Other [employer] Other 11-12-2022 12:45-0400 Systolic blood pressure 122 mm[Hg] Brock Modi Other [employer] Other 10-21-2022 15:18-0400 Body height 167.64 cm Brock Modi Work Phone: [facility] 250 DO Work Phone: 10-21-2022 15:18-0400 Body mass index (BMI) [Ratio] 35.51 kg/m2 Brock Modi Work Phone: [facility] [facility] DO Work Phone: 10-21-2022 15:18-0400 Body surface area Derived from formula 2.08 m2 Brock Modi Work Phone: [facility] [employer] 250 DO Work Phone: 10-21-2022 15:18-0400 Body weight 99.79 kg Brock Modi [facility] [employer] 250 DO Work Phone: 10-21-2022 15:18-0400 Diastolic blood pressure 70 mm[Hg] Brock Modi Work Phone: [facility] [employer] 250 DO Work Phone: 10-21-2022 15:18-0400 Heart rate 84 /min Brock Modi Work Phone: [facility] 250 DO Work Phone: 10-21-2022 15:18-0400 Systolic blood pressure 126 mm[Hg] Brock Modi Work Phone: [facility] 250 DO Work Phone: 10-15-2022 11:15-0400 Body height 171.45 cm Brock Modi Other [employer] Other 10-15-2022 11:15-0400 Body mass index (BMI) [Ratio] 33.33 kg/m2 Brock Modi Other [employer] Other 10-15-2022 11:15-0400 Body weight 97.98 kg Brock Modi Other [employer] Other 10-15-2022 11:15-0400 Diastolic blood pressure 84 mm[Hg] Brock Modi Other [employer] Other 10-15-2022 11:15-0400 SaO2% (BldA) [Mass fraction] 94 % Brock Modi Other [employer] Other 10-15-2022 11:15-0400 Systolic blood pressure 122 mm[Hg] Brock Modi Other [facility] Other 10-13-2022 11:57-0400 Body temperature 97.4 [degF] MD Brock Modi Work Phone: [facility] 10-13-2022 11:57-0400 Diastolic blood pressure 85 mm[Hg] MD Brock Modi Work Phone: [facility] 10-13-2022 11:57-0400 Heart rate 107 /min MD Brock Modi Work Phone: [facility] 10-13-2022 11:57-0400 Inhaled oxygen flow rate 2 L/min MD Brock Modi Work Phone: [facility] 10-13-2022 11:57-0400 Respiratory rate 17 /min MD Brock Modi Work Phone: [facility] 10-13-2022 11:57-0400 SaO2% (BldA) [Mass fraction] 97 % MD Borck Modi Work Phone: [facility] 10-13-2022 11:57-0400 Systolic blood pressure 125 mm[Hg] MD Brock Modi Work Phone: [facility] 10-13-2022 04:32-0400 Body weight 97.52 kg MD Brock Modi Work Phone: [facility] 10-10-2022 08:46-0400 65 1 Brock Modi Work Phone: [facility] 250 DO Work Phone: Comment on above: [id number] 10-10-2022 04:57-0400 Body height 170.18 cm MD Brock Modi Work Phone: [facility] 09-09-2022 14:30-0500 Body height 171.45 cm Wagner Marrufo Other [facility] Other 09-09-2022 14:30-0500 Body mass index (BMI) [Ratio] 34.41 kg/m2 Wagner Marrufo Other [employer] Other 09-09-2022 14:30-0500 Body weight 101.15 kg Wagner Marrufo Other [employer] Other 08-13-2022 12:15-0500 Body height 171.45 cm Brock Modi Other [employer] Other 08-13-2022 12:15-0500 Body mass index (BMI) [Ratio] 34.38 kg/m2 Brock Modi Other [employer] Other 08-13-2022 12:15-0500 Body weight 101.06 kg Brock Modi Other [employer] Other 08-13-2022 12:15-0500 Diastolic blood pressure 84 mm[Hg] Brock Modi Other [employer] Other 08-13-2022 12:15-0500 SaO2% (BldA) [Mass fraction] 97 % Brock Modi Other [employer] Other 08-13-2022 12:15-0500 Systolic blood pressure 132 mm[Hg] Brock Modi Other [employer] Other 07-30-2022 12:30-0500 Body height 171.45 cm Brock Modi Other [employer] Other 07-30-2022 12:30-0500 Body mass index (BMI) [Ratio] 32.71 kg/m2 Brock Modi Other [employer] Other 07-30-2022 12:30-0500 Body weight 96.16 kg Brock Ly Other [employer] Other 07-30-2022 12:30-0500 Diastolic blood pressure 80 mm[Hg] Brock Modi Other [employer] Other 07-30-2022 12:30-0500 SaO2% (BldA) [Mass fraction] 97 % Brock Modi Other [employer] Other 07-30-2022 12:30-0500 Systolic blood pressure 122 mm[Hg] Brock Modi Other [employer] Other Encounters Encounter Date Encounter Type Care Provider Facility Start: 06-24-2023 End: 06-24-2023 ambulatory Brock Modi Other [employer] Other Start: 06-24-2023 Office outpatient vi sit 15 minutes Brock Modi [facility] Start: 04-07-[address] Alok chauhan [facility] Facility: Start: 04-02-2023 End: 04-02-2023 ambulatory Brock Modi Other [employer] Other Start: 04-02-2023 Telephone encounter Brock Modi [facility] Start: 03-19-2023 End: 03-19-2023 ambulatory Brock Modi Other [employer] Other Start: 03-19-2023 Telephone encounter Brock Modi [facility] Start: 03-16-2023 End: 03-16-2023 ambulatory Brock Modi Other [employer] Other Start: 03-16-2023 Office outpatient vi sit 15 minutes Brock Modi [facility] Start: 02-04-2023 End: 02-04-2023 ambulatory Brock Modi Other [employer] Other Start: 02-04-2023 Office outpatient vi sit 15 minutes Brock Modi [facility] Start: 01-29-2023 End: 01-29-2023 ambulatory Viral Yang Other [employer] Other Start: 01-29-2023 Telephone encounter Viral Yang [facility] Start: 01-27-2023 Rx Renewal Brock Modi Work Phone: [facility] 250 DO Work Phone: Start: 01-19-2023 Patient encounter procedure Brock Modi Work Phone: [facility] [address] [place] Work Phone: Start: 01-14-2023 End: 01-14-2023 ambulatory Brock Modi Other [employer] Other Start: 01-14-2023 Telephone encounter Brock Modi [facility] Start: 12-24-2022 Office outpatient vi sit 40 minutes Brock Modi Work Phone: [facility] 250 DO Work Phone: Start: 12-24-[address] Alok chauhan [facility] Facility: Start: 12-04-2022 End: 12-04-2022 ambulatory Brock Modi Other [employer] Other Start: 12-04-2022 Telephone encounter Brock Modi [facility] Start: 12-03-2022 End: 12-03-2022 ambulatory Brock Modi Other [employer] Other Start: 12-03-2022 Telephone encounter Brock Modi [facility] Start: 11-27-2022 End: 11-27-2022 ambulatory Wagner Marrufo Other [employer] Other Start: 11-27-2022 Office outpatient vi sit 25 minutes Wagner Marrufo [facility] Start: 11-12-2022 End: 11-12-2022 ambulatory Brock Modi Other [employer] Other Start: 11-12-2022 Office outpatient vi sit 15 minutes Brock Modi [facility] Start: 11-04-2022 ambulatory JANINE SCOTT Facili ty:H1 Start: 11-03-2022 End: 11-03-2022 ambulatory Kamal Chaban Facility:[facility] Start: 11-03-2022 End: 11-03-2022 ambulatory MD Brock Modi Work Phone: [facility] Work Phone: Start: 11-03-2022 End: 11-03-2022 Patient encounter procedure MD Brock Modi Work Phone: [facility]-CT Scan [place] Work Phone: Start: 11-02-2022 Patient encounter procedure Brock Modi Work Phone: [facility] 250 DO Work Phone: Start: 11-02-2022 ambulatory Janine Cunha Facility:1 [id number] Start: 10-29-2022 Chart Update Brock Modi Work Phone: [facility] 600 DO Work Phone: Start: 10-28-2022 End: 10-28-2022 ambulatory Janine Cunha Facility:[facility] Start: 10-28-2022 End: 10-28-2022 ambulatory MD Brock Modi Work Phone: [facility] Work Phone: Start: 10-28-2022 End: 10-28-2022 Patient encounter procedure MD Brock Modi Work Phone: [facility]-Lab [facility] [place] Work Phone: Start: 10-27-2022 End: 10-27-2022 ambulatory Brock Modi Other [employer] Other Start: 10-27-2022 Telephone encounter Brock Modi [facility] Start: 10-21-2022 Transitional care juan diego perezlelo srvc 14 day discharge Brock Modi Work Phone: [facility] 250 DO Work Phone: Start: 10-21-2022 End: 10-21-2022 ambulatory Janine Cunha [employer] Other Start: 10-21-2022 Telephone encounter Adi Campos [facility] Start: 10-20-2022 End: 10-20-2022 ambulatory Adi Campos Other [employer] Other Start: 10-20-2022 Office outpatient ne w 45 minutes Adi Campos [facility] Start: 10-15-2022 End: 10-15-2022 ambulatory Brock Modi Other [employer] Other Start: 10-15-2022 Office outpatient vi sit 15 minutes Brock Modi [facility] Start: 10-10-[address] Brock Modi Facility:[id number] Start: 10-10-2022 End: 10-13-2022 Evaluation and management of inpatient Farida Berrios Facility:[facility] Start: 10-10-2022 End: 10-13-2022 Evaluation and management of inpatient MD Brock Modi Work Phone: [facility] [place] [employer] Work Phone: Start: 10-10-2022 End: 10-10-2022 ambulatory COLIN TREADWELL Facility:[facility]1 Start: 09-09-2022 End: 09-09-2022 ambulatory Wagner Marrufo Facility:[facility] Start: 09-09-2022 Office outpatient ne w 45 minutes Wagner Marrufo [facility] Start: 09-09-2022 End: 09-09-2022 ambulatory DO Wagner Marrufo Work Phone: [facility] Work Phone: Start: 09-09-2022 End: 09-09-2022 Patient encounter procedure DO Wagner Marrufo Work Phone: [facility] [place] [facility] Start: 09-07-2022 End: 09-08-2022 ambulatory COLIN TREADWELL Facility:[facility]1 Start: 08-13-2022 End: 08-13-2022 ambulatory Brock Modi Other [employer] Other Start: 08-13-2022 Office outpatient vi sit 15 minutes Brock Modi [facility] Start: 08-10-2022 End: 08-11-[address] BROCK MODI Facility:[facility]1 Start: 07-30-2022 End: 07-30-2022 ambulatory Brock oMdi Other [employer] Other Start: 07-30-2022 Office outpatient vi sit 25 minutes Brcok Modi [facility] Start: 07-28-2022 End: 07-28-2022 ambulatory Brock Modi Other [employer] Other Start: 07-28-2022 Telephone encounter Brock Modi [facility] [employer] Start: 07-10-2022 End: 07-11-[address] CAR LIGHT Facility:[facility]1 Start: 07-08-2022 End: 07-08-[address] JANELLE LAL . Facility:[facility]1 Start: 07-05-2022 End: 07-05-[address] RUBÉN DALY Facility:H1 Start: 07-03-2022 End: 07-04-[address] ARLIN CUNHA Facility:[facility]1 Start: 02-03-2022 End: 02-03-[address] ARLIN CUNHA Facility:[facility]1 Patient encounter status Brock Modi Work Phone: -[facility] 250 DO Work Phone: Procedures Date Procedure Procedure [...] Alok Webber, Status: Pen, Time: 11:20 AM [facility] 250 DO Work Phone: Start: 01-19-2023 FUV, Provider: Alok Webber, Status: Pen, Time: 2:30 PM FUV, Provider: Alok Webber, Status: Pen, Time: 2:30 PM [facility] 250 DO Work Phone: Start: 11-02-2022 HOLTER 48, Provider: VERONICA LANGLEY BREWING DIRECTOR 1,[id number], Status: Pen, Time: 2:30 PM HOLTER 48, Provider: VERONICA LANGLEY BREWING DIRECTOR 1,[id number], Status: Pen, Time: 2:30 PM [facility] 250 DO Work Phone: Start: 10-13-2022 [facility] Start: 10-10-2022 Dilation of Coronary Artery, Two Arteries with Three Drug-eluting Intraluminal Devices, Percutaneous Approach Dilation of Coronary Artery, Two Arteries with Three Drug-eluting Intraluminal Devices, Percutaneous Approach [facility] Start: 10-10-2022 Fluoroscopy of Left Heart using Low Osmolar Contrast Fluoroscopy of Left Heart using Low Osmolar Contrast [facility] Start: 10-10-2022 Fluoroscopy of Multiple Coronary Arteries using Low Osmolar Contrast Fluoroscopy of Multiple Coronary Arteries using Low Osmolar Contrast [facility] Start: 10-10-2022 Measurement of Cardiac Sampling and Pressure, Left Heart, Percutaneous Approach Measurement of Cardiac Sampling and Pressure, Left Heart, Percutaneous Approach [facility] Start: 10-10-[address] [facility] Start: 10-10-2022 [facility] Start: 10-10-[address] [facility] Start: 10-10-2022 [facility] Patient Education Coronary Angio plasty (DC) Coronary Stenting (DC) Angina (DC) Chest Pain (DC) Drug Eluting Stents [facility] Work Phone: Patient referral [facility] Work Phone: Immunizations Immunization Date Immunization Notes Care Provider Fa cili 05-02-2018 pneumococcal Conjuga te, unspecified formulation; Translations: [Need for prophylactic vaccination against Streptococcus pneumoniae (pneumococcus)] Brock Modi Other [employer] Other 05-02-2018 pneumococcal polysaccharide vaccine, 23 valent Brock Modi Work Phone: [facility] 250 DO Work Phone: 05-26-2017 pneumococcal conjuga te vaccine, 13 valent Brock Modi Work Phone: [facility] 250 DO Work Phone: Payers Date Payer Category Payer Medicaid [id number]. [id number] 2022 Self-pay 1960 Unknown [id number] [id number] 1960 Unknown [id number] 2..[id number] 1960 Unknown [id number] 2.16.840.1.010579.3.579.2.593 1960 Unknown [id number] 2.16.840.1.187458.3.579.2.593 1960 Unknown [id number] 2.16.840.1.561626.3.579.2.593 1960 Unknown [id number] 2.16.840.1.323740.3.579.2.593 1960 Unknown [id number] 2.16.840.1.089332.3.579.2.593 1960 Unknown [id number] 2.16.840.1.976116.3.579.2.593 1960 Unknown [id number] 2.16.840.1.275999.3.579.2.593 1960 Unknown [id number] 2.840.1.224728.3.579.2.356 1960 Unknown [id number] 2.16.840.1.937872.3.579.2.356 1960 Unknown [id number] 2.16.840.1.947854.3.579.2.356 1960 Unknown [id number] 2.16.840.1.790750.3.579.2.356 1960 Unknown [id number] .16.840.1.785356.3.579.2.356 1959 Unknown [id number] 2. [id number] Unknown [facility] [employer] Unknown [id number] 2.16.840.1.968989.3.579.2.531 Unknown [id number] 2.16.840.1.749583.3.579.2.531 Unknown [id number] 2.16.840.1.722821.3.579.2.531 Unknown [id number] 2.16.840.1.077016.3.579.2.531 Social History Date Type Detail Facility Tobacco smoking stat [facility] Unknown if ever smoked [facility] Work Phone: Start: 1960 Sex Assigned At Male F [facility] Sex Assigned At Sex Assigned At Bir th [employer] Other Start: 10-10-2022 Tobacco smoking stat [facility] Smoker (finding) [facility] Daily caffeine consumption Daily caffeine consumption [facility] [place] 250 DO Work Phone: Comment on above: 1/2 gallon coffee da darrion; 5-6 cig daily; 8 cigs daily; Medical Equipment Procedure Code Equipment Code Equipment Origin al Text Equipment Identifier Dates Drug-eluting coronary artery stent, [id number] lymer-coated ()[id number] FDA Start: 10-10-2022 Drug-eluting coronary artery stent, [id number] lymer-coated ()[id number] FDA Start: 10-10-2022 Drug-eluting coronary artery stent, [id number] lymer-coated ()[id number] FDA Start: 10-10-2022 Goals Date Patient Goal Desired Activity /State Functional Status Date Assessment Result Facility 10-13-2022 Functional status Patient at [facility] Work Phone: Mental Status Date Assessment Result Facility 10-13-2022 Cognitive function Cognitive Sta tus Patient at [facility] Work Phone: Clinical Notes 07-30-2022 to 06-24-2023 Note Date & Type Note Facility 06-24-2023 Evaluation note Encounter Date Diagnosis Assessment Notes May, Abdominal aortic aneurysm (AAA) without rupture, unspecified part (ICD-10 - I71.40) Pt requests order as he is overdue for recheckUS. May, Bronchitis (ICD-10 - J40) Finish meds and treatment plan ordered by ER recently. Pt understands as he is improving. [employer] Other 08-25-2023 Evaluation note* Encounter Date Diagnosis Assessment Notes Treatment Notes Treatment Clinical Notes Feb, Acute cystitis without hematuria (ICD-10 - N30.00) [employer] Other 08-22-2023 Evaluation note* Encounter Date Diagnosis Assessment Notes Treatment Notes Treatment Clinical Notes Feb, Penile discharge (ICD-10 - R36.9) Pt request STI testing Feb, Dysuria (ICD-10 - R30.0) Rule out UTI based on symptoms. Will call w results. Push fluids. Feb, Chronic obstructive pulmonary disease, unspecified (ICD-10 - J44.9) Clinical diagnosis secondary to [id number] history of tobacco abuse. He will need PFTs in the future. Discussed missed appts w Dr. Campos and sleep lab. He states he will not followup there as he doesn't want to do a lung biopsy. His resp symptoms are improved overall. He expresses understanding on the severity of his condition and he chooses not to followup. [employer] Other 07-13-2023 Evaluation note* Encounter Date Diagnosis Assessment Notes Treatment Notes Treatment Clinical Notes Jan, COPD, moderate (ICD-10 - J44.9) Reminded him to keep appt w Dr. Campos on 02/10. Continue home medications. Avoid going outside with there is haze. Jan, Other sleep disorders (ICD-10 - G47.8) Gave number for the [facility] Sleep lab. He missed his last appt as his daughter had COVID. He will call to reschedule. [employer] Other 07-07-2023 Evaluation note* Encounter Date Diagnosis Assessment Notes Treatment Notes Treatment Clinical Notes Jan, Situational anxiety (ICD-10 - F41.8) [employer] Other 05-11-2023 Evaluation note* Encounter Date Diagnosis Assessment Notes Treatment Notes Treatment Clinical Notes November, Situational anxiety (ICD-10 - F41.8) [employer] Other 05-05-2023 Evaluation note* Encounter Date Diagnosis [...] any surgical interventions. Tobacco cessation program at [facility] has been recommended and offered as well as the national Quitline 4-513-BXNS-NOW. We have discussed pharmacologic treatment including nicotine replacement therapy which can lead to a positive nicotine test as well as nicotine free medications both of which will need to be managed by their PCP. We have provided handout for the [facility] Tobacco Cessation Program. This discussion was limited to 5 minutes. [employer] Other 04-20-2023 Evaluation note* Encounter Date Diagnosis Assessment Notes Treatment Notes Treatment Clinical Notes Oct, Chronic obstructive pulmonary disease, unspecified COPD type (ICD-10 - J44.9) Will resume inhalers as prescribed. Keep appt w Dr. Campos. Notes frequent dyspnea, agrees to a prednisone course. Oct, INOCENTE (obstructive sleep apnea) (ICD-10 - G47.33) I called [facility]. He has to meet with the sleep specialist before the test is done, even though it was already ordered. I gave him the date of the appt. I also ordered the test. Oct, Coronary artery disease involving [place] heart without angina pectoris, unspecified vessel or lesion type (ICD-10 - I25.10) Continued followup w NO. Continue time off work until breathing status is improved. [employer] Other 03-28-2023 Evaluation note* Encounter Date Diagnosis Assessment Notes Treatment Notes Treatment Clinical Notes Sep, Chronic obstructive pulmonary disease, unspecified COPD type (ICD-10 - J44.9) Trelegy samples and training please Sep, Atelectasis of right lung (ICD-10 - J98.11) Please obtain any previous chest CT done at [facility] in the past, and have them load onto our PACS Sep, Tobacco use disorder (ICD-10 - F17.200) Sep, Coronary artery disease involving [place] heart without angina pectoris, unspecified vessel or lesion type (ICD-10 - I25.10) [employer] Other 03-23-2023 Evaluation note* Encounter Date Diagnosis Assessment Notes Treatment Notes Treatment Clinical Notes Sep, Coronary artery disease involving [place] coronary artery of [place] heart without angina pectoris (ICD-10 - I25.10) [...] needs a titration study at the least. [employer] Other 03-21-2023 Hospital Discharge instructions Additional Instructions [...] doctor or pharmacist, without first calling the pivot maker who implanted the stent. If you require [...] weight lifting, stair steppers, etc. until the pivot maker approves these activities. Check with the pivot maker on your first follow-up visit. CALL YOUR PHYSICIAN at [phone]: -If bleeding should occur from the catheter insertion site- apply pressure to the site then immediately call us. -Report any fever, redness, drainage, increased swelling, or firmness at the catheter insertion site. Some bruising or slight swelling may be present at the time of discharge. -Should arm or leg become cold, numb, white, or blue, contact the pivot maker immediately. -IF you should experience episodes of [...] is recommended. Please call Central Scheduling at [phone] to schedule your appointment.] The attending pivot maker or [facility] nurse clinician should provide you with specific instructions regarding activity, diet, medications, and further follow up for you. Follow the medication instructions provided on your discharge. If the dosages and instructions on this sheet differ from the dosage and instructions on the bottle, follow the instructions on the bottle. [facility] is not responsible for incorrect prescription information provided by the patient during their visit. Do not stop your medications without consulting your health care provider. Please take the list with you to your next doctor's appointment.[facility] Work Phone: 1(684) 405-114103-21-2023 Progress note Author Rubén Tatum [facility] October 13, 2022 9:02am Note Date/Time October 13, 2022 9:0 2am [facility] [address] [place] [address] Cardiology Progress Note Signed Patient: Hector Gaspar SR MR#: [id number] : 1960 Acct:[id number] Age/Sex: 62 / M Adm Date: 3 Loc: 4 Room: [address] [place] [address] Type: ADM IN Attending Dr: Barbara Rivero [...] on postNSTEMI/PCI metoprolol tartrate. 5. Follow-up in [facility] heart clinic within 10 days. From there strongly recommend [...] signed by Rubén Tatum MD> 10/13/22 0902 [facility] Work Phone: 1(191) 704-842603-20-2023 Progress note Author Barbara Rivero [facility] October 12, 2022 2:24pm Note Date/Time October 12, 2022 2:1 2pm [facility] [address] [place] [address] Hospitalist Progress Note Signed Patient: Hector Gaspar SR MR#: [id number] : 1960 Acct:[id number] Age/Sex: 62 / M Adm Date: 3 Loc: Room: [address] [place] [address] Type: ADM IN Attending Dr: Barbara Rivero [...] Syringe SUBCUT 10/12/23 09:59 Not Given DAILY@1000 AWA Fentanyl Citrate 25 mcg 10/10/22 12:23 Fentanyl/Pf [...] this time. (3) Ventricular tachycardia seen on traffic monitor specialist: Plan: No further episodes of ventricular tachycardia. [...] placement. Documented By: Barbara Rivero MD 10/12/22 3761 Signed By: <Electronically signed by Barbara Rivero MD> 10/12/22 2752 [facility] Work Phone: 1(106) 774-352203-20-2023 Progress note Author Rubén Tatum [facility] October 12, 2022 10:00am Note Date/Time October 12, 2022 9:5 9am [facility] [address] [place] [address] Cardiology Progress Note Signed Patient: Hector Gaspar SR MR#: [id number] : 1960 Acct:[id number] Age/Sex: 62 / M Adm Date: 3 Loc: 4 Room: [address] [place] [address] Type: ADM IN Attending Dr: Barbara Rivero [...] pacing device. (3) Ventricular tachycardia seen on traffic monitor specialist: Assessment/Problem Details: Stable no further wide-complex tachycardia [...] signed by Rubén Tatum MD> 10/12/22 1000 [facility] Work Phone: 1(896) 154-380303-19-2023 Progress note Author Barbara Rivero [facility] October 11, 2022 11:24am Note Date/Time October 11, 2022 11: 15am [facility] [address] [place] [address] Hospitalist Progress Note Signed Patient: Hector Gaspar MR#: [id number] : 1960 Acct:[id number] Age/Sex: 62 / M Adm Date: 3 Loc: 4P Room: [address] [place] [address] Type: ADM IN Attending Dr: Barbara Rivero [...] smoking cessation. (3) Ventricular tachycardia seen on traffic monitor specialist: Plan: Patient given potassium and magnesium supplement. [...] <Electronically signed by Barbara Rivero MD> 10/11/22 8500 [facility] Work Phone: 1(334) 691-673503-19-2023 Progress note Author Rubén Tatum [facility] October 11, 2022 9:41am Note Date/Time October 11, 2022 9:3 3am [facility] [address] [place] [address] Cardiology Progress Note Signed Patient: Hector Gaspar SR MR#: [id number] : 1960 Acct:[id number] Age/Sex: 62 / M Adm Date: 3 Loc: Room: [address] [place] [address] Type: ADM IN Attending Dr: Barbara Rivero [...] Laboratory Results - last 24 hr 10/10/22 10/11/22 10/11/22 06:10 05:11 05:11 Corrected WBC 6.6 Uncorrected WBC Count 6.6 RBC 4.21 Hgb 12.7 L Hct 37.7 L MCV 89.4 MCH 30.1 MCHC 33.7 RDW 14.9 H Plt Count 203 MPV 7.3 Neut % (Auto) 63.8 Lymph % (Auto) 21.8 Labette % (Auto) 10.2 Eos % (Auto) 3.7 Baso % (Auto) 0.5 Nucleat RBC Rel Count 0.1 Neut # (Auto) 4.2 Lymph # (Auto) 1.4 Labette # (Auto) 0.7 Eos # (Auto) 0.2 [...] MPV Neut % (Auto) Lymph % (Auto) Labette % (Auto) Eos % (Auto) Baso % (Auto) Nucleat RBC Rel Count Neut # (Auto) Lymph # (Auto) Labette # (Auto) Eos # (Auto) Baso # [...] AV node (3) Ventricular tachycardia seen on traffic monitor specialist: Assessment/Problem Details: Not entirely certain that this [...] (min): 30 Documented By: Rubén Tatum MD 10/11/22 0931 Signed By: <Electronically signed by Rubén Tatum MD> 10/11/2230 [facility] Work Phone: 1(355) 489-858203-18-2023 Progress note Author Barbara Rivero [facility] October 10, 2022 1:33pm Note Date/Time October 10, 2022 1:3 3pm [facility] [address] [place] [address] Event Note Signed Patient: Hector Gaspar SR MR#: [id number] : 1960 Acct:[id number] Age/Sex: 62 / M Adm Date: 3 Loc: Room: [address] [place] [address] Type: ADM IN Attending Dr: Barbara Rivero [...] 30 mins Documented By: Barbara Rivero MD 10/10/22 1330 Signed By: <Electronically signed by Barbara Rivero MD> 10/10/22 1335 [facility] Work Phone: 1([phone]) 901-368503-18-2023 History of Present illness Narrative* Patient presents to the office ambulatory with steady gait. * This is initial in clinic follow-up at [facility]. * October 10, [address] [facility] from [facility] d/t NSTEMI. Managed by with uneventful [...] medication regimen. He denies medication side effects. [facility] 250 DO Work Phone: 1(235) 571-267903-18-2023 Procedure [facility]03-18-2023 Procedure [facility]03-18-2023 Consult note Author Rubén Tatum [facility] October 10, 2022 9:54am Note Date/Time October 10, 2022 9:5 1am [facility] [address] [place] [address] Cardiology Consult Note Signed Patient: eHctor Gaspar SR MR#: [id number] : 1960 Acct:[id number] Age/Sex: 62 / M Adm Date: 3 Loc: Room: [address] [place] [address] Type: ADM IN Attending Dr: Barbara Rivero MD Copies to: MD Barbara Barry MD Stephen M Tann, MD~ Cardiology HPI History of Present Illness Consult Date: 10/10/22 Reason for Consult: Nausea, non-STEMI HPI: Mr. Gaspar is a 62 year old male with multiple cardiac risk factors but no known prior coronary heart disease who presented to [place] emergency department lastnight complaining of nausea x2 [...] consistent nausea ever since. He presented to [place] emergency department last evening with these complaints. In the ER at [place] ECG showed Q waves in the inferolateral [...] trend upward to 6000 and then greater [id number]. Echocardiogram at bedside this morning shows normal [...] Lymph # (Auto) 1.4 1.4 (1.00-4.8) x10E3/uL Labette # (Auto) 0.6 0.6 (0.0-0.8) x10E3/uL Eos [...] Dysrhythmias Sinus rhythms and dysrhythmias: sinus rhythm NC, pacemaker, normal Myocardial infarction: inferior NC (old age indeterminate) and lateral NC (acuteor recent) A&P - Cardiology (1) NSTEMI [...] signed by Rubén Tatum MD> 10/10/22 0954 [facility] Work Phone: 1([phone]) [phone] History and physical note Author Galo Dent [facility] October 10, 2022 7:28am Note Date/Time October 10, 2022 7:2 8am [facility] [address] [place] [address] Hospitalist H&P Signed Patient: Hector Gaspar SR MR#: [id number] : 1960 Acct:[id number] Age/Sex: 62 / M Adm Date: 3 Loc: 3T Room: [address] [place] [address] Type: ADM IN Attending Dr: Barbara Rivero MD Copies to: MD Barbara Barry MD Mushtaq Mahmood, MD~ HPI DATE OF EXAMINATION: 10/10/22 CHIEF COMPLAINT: Non-ST elevation NC HISTORY OF PRESENT ILLNESS: Patient is a 62-year-old gentleman with history of hypertension, heavy smoking about 1-1/2 pack for 45 years, COPD, strong family history of coronary artery disease, came to us from [place] emergency department last night. Patient presented to [...] The ER physician did talk to the pivot maker here in [facility]. Patient was started on heparin drip, nitro patch was applied. He was sent to our hospital. Upon arrival in the [facility] patient complained about headache. Nitropatch was [...] % (Auto) 27.5 % (.) 10/10/22 06:10 Labette % (Auto) 11.4 % (.) 10/10/22 06:10 Eos % (Auto) 4.4 % (.) 10/10/22 06:10 Baso % (Auto) 0.6 % (.) 10/10/22 06:10 Nucleat RBC Rel Count 0.1 /100 WBC (0-0.5) 10/10/22 06:10 Neut # (Auto) 2.9 x10E3/uL (1.8-7.7) 10/10/22 06:10 Lymph # (Auto) 1.4 x10E3/uL (1.00-4.8) 10/10/22 06:10 Labette # (Auto) 0.6 x10E3/uL (0.0-0.8) 10/10/22 06:10 [...] heartcath by cardiology today. I have consulted [facility] heart. He was offered nicotine patch. I [...] smoking. Documented By: Galo Dent MD 10/10/22 07 Signed By: <Electronically signed by Galo Dent MD> 10/10/22 0728 [facility] Work Phone: 1([phone]) 745-180302-15-2023 Evaluation note* Encounter Date Diagnosis Assessment Notes [...] in office today. Prior medical notes from [facility] and history have been reviewed. At [...] any surgical interventions. Tobacco cessation program at [facility] has been recommended and offered as well as the national Quitline 7-517-LRCP-NOW. We have discussed pharmacologic treatment including nicotine replacement therapy which can lead to a positive nicotine test as well as nicotine free medications both of which will need to be managed by their PCP. We have provided handout for the [facility] Tobacco Cessation Program. This discussion was limited to 5 minutes. Aug, Other See orders for this visit as documented in the electronic medical record. [employer] Other 01-19-2023 Evaluation note* Encounter Date Diagnosis Assessment Notes Treatment Notes Treatment Clinical Notes Jul, Chronic obstructive pulmonary disease with acute exacerbation (ICD-10 - J44.1) Discussed diagnosis with patient. Medication profile and possible SE reviewed with patient. Take as directed. Keep appt w Dr. Castillo on 08/31. Notify office if not improving or worsening. Patient verbalizes understanding and agrees to treatment plan. [employer] Other 01-05-2023 Evaluation note* Encounter Date Diagnosis Assessment Notes Treatment Notes Treatment Clinical Notes Jul, Chronic obstructive pulmonary disease with acute exacerbation (ICD-10 - J44.1) [employer] Other Discharge summary Author Barbara Rivreo [facility] October 13, 2022 2:14pm Note Date/Time October 13, 2022 2:0 9pm [facility] [address] [place] [address] Discharge Summary Signed Patient: Hector Gaspar SR MR#: [id number] : 1960 Acct:[id number] Age/Sex: 62 / M Adm Date: 3 Loc: Room: [address] [place] [address]: Barbara Rivero MD Copies to: [...] transferred from outside facility for non-ST elevated NC. He was started on heparin drip as [...] p CL Stent 1st Vessel RCA ANTONIO - Rubén Tatum MD p CL Stent 1st Vessel CX ANTONIO - Rubén Tatum MD Diagnostic Studies Completed and Pending [...] doctor or pharmacist, without first calling the pivot maker who implanted the stent. If you require [...] weight lifting, stair steppers, etc. until the pivot maker approves these activities. Check with the pivot maker on your first follow-up visit. CALL YOUR PHYSICIAN at [phone]: -If bleeding should occur from the catheter insertion site- apply pressure to the site then immediately call us. -Report any fever, redness, drainage, increased swelling, or firmness at the catheter insertion site. Some bruising or slight swelling may be present at thetime of discharge. -Should arm or leg become cold, numb, white, or blue, contact the pivot maker immediately. -IF you should experience episodes of [...] is recommended. Please call Central Scheduling at [phone] to schedule your appointment.] The attending pivot maker or [facility] nurse clinician should provide you with specific instructions regarding activity, diet, medications, and further follow up for you. Follow the medication instructions provided on your discharge. If the dosages and instructions on this sheet differ from the dosage and instructions on the bottle, follow the instructions on the bottle. [facility] is not responsible for incorrect prescription [...] BY MOUTH EVERY DAY Other Ambulatory Orders: BEER [employer]ER polysom procedure (Routine) Timeframe: 1 Week Location: Determined by Patient Ordered By: Barbara Rivero Follow Up: [facility] [Outside] (Left message with [facility] regarding need for outpatient [...] signed by Barbara Rivero MD> 10/13/22 1414 [facility] Work Phone: Evaluation noteNo assessment information available [facility] Work Phone: Evaluation noteNo InformationNortWerners[facility] [employer] Other Evaluation note* Diagnosis Onset Date Resolution Status COPD (chronic obstructive pulmonary disease) acute Heart block AV complete acut e Hypertension acute Hypoxemia acute NSTEMI (non-ST elevated myocardial infarction) acute Sleep apnea in adult acute Tobacco abuse acute Ventricular tachycardia seen on traffic monitor specialist acute [facility] Work Phone: History general Narrative - Reported* Type Description [...] appendectomy 05/02/18 Hospitalization History SEE SURGICAL HX [facility] [employer] Other [employer] general Narrative - Reported* Type Description Date [...] Stents 09/2022 Hospitalization History SEE SURGICAL HX [employer] Other Histuvn general Narrative - Reported* Type Description Date [...] 3 Stents 09/2022 Hospitalization History SEE SURGICAL [employer] Other [employer] general Narrative - Reported* Type Description Date [...] History SEE SURGICAL HX Hospitalization History pneumonia [employer] Other Chief Complaint and Reason for Visit Chief Complaint M25.561 Elevated Troponin Reason for Visit COPD (chronic obstru ctive pulmonary disease) Heart block AV complete Hypertension Hypoxemia NSTEMI (non-ST elevated myocardial infarction) Sleep apnea in adult Tobacco abuse Ventricular tachycardia seen on traffic monitor specialist Chief Complaint M25.561 Elevated Troponin I25.10 I10 E78.2 Reason for Visit COPD (chronic obstru ctive pulmonary disease) Heart block AV complete Hypertension Hypoxemia NSTEMI (non-ST elevated myocardial infarction) Sleep apnea in adult Tobacco abuse Ventricular tachycardia seen on traffic monitor specialist Chief Complaint M25.561 Elevated Troponin I25.10 I10 E78.2 j98.11 Reason for Visit COPD (chronic obstru ctive pulmonary disease) Heart block AV complete Hypertension Hypoxemia NSTEMI (non-ST elevated myocardial infarction) Sleep apnea in adult Tobacco abuse Ventricular tachycardia seen on traffic monitor specialist Family History Relationship Condition Age at Onset [...] December. 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 * Based on current guidelines and most recent literature, this is an appropriate indication to withdraw antiplatelet therapy and proceed with urgent endobronchial biopsy for diagnostic purposes, notably his [place] stents that were recently placed have have [...] Brock Modi MD Primary Care Provider Active Janine Cunha [...] understands monitor is to be returned on: [id number] number [id number] applied.Holter monitor returned and downloaded.messagePulmonary Office NotesRef by Dr. Brock Modi for COPDJ[facility] - HAD HEART ATTACKRight Knee PainCheck Upnot feeling back to normal- discussion (unrecognized sect ion and content) No Status Records FoundNo Status Records FoundNo Status Records FoundNo Status Records Found INFORMATION SOURCE (unrecogn ized section and content) DATE CREATED AUTHOR 11/07/2022 [facility] pital DATE CREATED AUTHOR AUTHOR'S ORGANIZ ATION 11/12/2022 [facility] DATE CREATED AUTHOR AUTHOR'S ORGANIZ ATION 01/02/2023 [employer] DATE CREATED AUTHOR AUTHOR'S ORGANIZ ATION 04/09/2023 [facility] FOR RECORDS PERTAINING TO PATIENTS WHO [...] BE BASED ON THE PRIMARY CLINICAL RECORDS. [facility] bettermarks [facility]. provides no warranty or guarantee of the accuracy or completeness of information in this document.
== END 2023-07-15 13:07 | disposition home or self-care (01) ==
LOC: US 13:06
PROVIDERS: PCP Family Medicine; Visit Provider Family Medicine
DX: I71.40 Abdominal aortic aneurysm, without rupture, unspecified (principal)
CPT/HCPCS: 76775

== ENCOUNTER 2023-08-04 21:33 | Emergency (ER) | payer OTHER, SELFPAY ==
[2023-08-04] VITALS (20 sets, daily range): BP systolic 112–131; BP diastolic 61–82; PULSE 68–85; RESP 16–25; TEMP 36.6; O2SAT 80–100; BMI 35.5
--- OUTSIDE RECORDS SUMMARY | 2023-08-04 21:40 | XMS_ITS | CCD ---
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 Name Role Phone DO Wagner Marrufo Attending Provider [phone] Brock Modi Unavailable Wagner Marrufo Unavailable DO Wagner Marrufo Attending Provider MD Brock Modi Primary Care Provider MD Filipe [facility] Admit Provider [phone] MD Barbara Rivero Attending Provider Brock Modi Unavailable Unavailable Unavailable Adi Campos Unavailable ZELALEM Faustin Attending Provider MD Adi Campos Attending Provider KULDEEP, DR CAR Torres Attending Unavailable KULDEEP, DR CAR Torres Admitting Unavailable NIKIA Moser, DR JUSTIN Urbano Consulting Unavailable LY, DR BROCK Urbano Primary Care Unavailable KULDEEP, DR CAR Torres Consulting Unavailable SARITA RUSSELL Consulting Unavailable TEE [...] Unavailmelissa DALY, DR RUBÉN Baez Admitting Unavailmelissa MODI, DR BROCK Urbano Primary Care Unavailable LONNIE, DR ARLIN Simpson Consulting Unavailable LONNIE, DR ARLIN Simpson Attending Unavailable LONNIE, DR ARLIN Simpson Admitting Unavailable LY, DR BORCK Urbano Primary Care Unavailable PEDRO, CYNTHIA Consulting Unavailable LONNIE, DR ARLIN Simpson Consulting Unavailable LONNIE, DR ARLIN Simpson Attending Unavailable LONNIE, DR ARLIN Simpson Admitting Unavailable LY, DR BROCK Urbano Primary Care Unavailable DAREK [...] Unavailable HAY ., DR LUIS Admitting Unavailable MODI, DR BROCK Urbano Primary Care Unavailable Janine [...] Daniel Consulting Unavailable Wilma Blanco Consulting Unavailable Adi Campos Admitting Unavailable Adi Campos Attending Unavailable Brock Modi Primary Care Unavailable Viral Yang Unavailable Akbar, Dr. Alok Gonzalez Attending Leava ilsobeida Modi, Dr. Brock Case Primary Care UnaJanine Lu Attending Unavailable Janine Cunha Referring Unavailable Ly, Dr. Brock Case Primary Care Unalacy Modi, Dr. Brock Case Primary Care UnaJanine Lu Attending Unavailable Janine Cunha Referring Unavailable Ly, Dr. Brock Case Primary Care Unalacy Webber, Dr. Alok Gonzalez Attending Ricardo Webber, Dr. Alok Gonzalez Referring Dr. Brock Roberts Primary Care Martin ailsobeida Allergies Allergy Classification Reported Allergen(s) Allergy Type Date of Onset Reaction(s) Facility (20 sources) Ciprofloxacin Drug Allergy Nausea & Blurred vision, Comment:nausea and blurred vision [facility] Other (20 sources) Substance with penicillin structure and antibacterial mechanism of action (substance) Drug allergy Edema, Unknown [facility] Other (20 sources) Pneumococcal 7-Zulma Conj Vacc Drug allergy undefined, Comment:pneumonoco ccal 23 [facility] Other (13 sources) Penicillins; Translations: [Penicillins] Propensity to adverse reactions 013 Gastrointestinal Upset, [facility] (4 sources) Pneumococcal vaccine; Translations: [pneumococcal vaccine] Drug Allergy 023 Redness of Skin [place] (8 sources) Pneumococcal vaccine; Translations: [Pneumococcal Vaccines] Drug Allergy [facility] 250 DO Work Phone: (2 sources) Penicillin Drug Allergy 016 Unknown [facility] Other (2 sources) patient allergy list reviewed by nurse or physicia Propensity to adverse reactions 016 Comment:Done [facility] Other (2 sources) Allergies Reconciled Propensity to adverse reactions Unknown [facility] Other Medications Current Medications Medication Drug Class(es) Dates Sig (Normalized) Sig (Original) acetaminophen 325 mg oral tablet (3 sources) Start: 10-10-2022 take 2 tablets by mouth every six hours Acetaminophen (Tylenol) 325 mg Tablet Active 650 MG PO Q6H October 10, 2022 12:00am [facility] - (5 sources) Start: 07-30-2022 [facility] - as directed Jul, Active [id number] actuat albuterol 0.09 mg/actuat metered dose [...] 7 Active take 1 puff(s) by mo lah every four hours as needed Albuterol Sulfate HFA 108 (90 Base) MCG/ ACT INHALE 1 PUFF BY MOUTH EVERY 4 HOURS NEEDED for 30 Active Albuterol Sulfat e (2.5 MG/3ML) 0.083% 3 mL as needed Inhalation every 6 hrs; shortness of breath or wheezing Active ALPRAZolam 1 mg oral tablet (10 sources) Benzodiazepine Start: 06-04-2023 take 1 tablet by mouth twice daily as needed ALPRAZolam 1 MG TAKE 1 TABLET BY MOUTH TWICE A DAY NEEDED for 30 Jun, Active Start: 04-05-2023 ALPRAZolam 1 M G TAKE 1 TABLET BY MOUTH TWICE A DAY NEEDED FOR 30 DAYS for 30 Mar, Active Start: 02-02-2023 ALPRAZolam 1 M G TAKE 1 TABLET BY MOUTH TWICE A DAY NEEDED FOR 30 DAYS for 30 Jan, Active Start: 01-29-2023 take 1 tablet by da twice daily as needed ALPRAZolam 1 MG 1 tablet Orally Twice a day prn for 30 days Jan, Active Start: 01-01-2023 take 1 tablet by da twice daily as needed ALPRAZolam 1 MG 1 tablet Orally Twice a day prn for 30 days Dec, Active Start: 12-04-2022 take 0.5 tablet by m out twice daily as needed ALPRAZolam 0.5 MG [...] times daily Active Nitro Sublingual 0.4 0.4mg (17 sources) Nitro Sublingual 0.4 0.4mg 1 Sublingual Every 5min x3 Active nitroglycerin 0.4 mg sublingual tablet (11 sources) Nitrate Vasodilator Start: 10-13-19 Nitroglycerin Active 0.4 MG SUBLINGUAL Q5M 25 October 12, 2022 12:00am do not exceed 3 doses per episode Ondansetron (2 sources) Serotonin-3 Receptor Antagonist Zofran Active predniSONE 20 mg oral tablet (10 sources) Start: 02-05-20 take 2 tablets by mouth every twenty-four hours predniSONE 20 MG 2 tablets Orally Once a day for 5 days Jan, Active Start: 11-12-2022 take 2 tablets by mo [facility] every twenty-four hours predniSONE 20 MG 2 tablets Orally Once a day for 5 days Oct, Active Start: 07-30-2022 take 1 tablet by da every twenty-four hours predniSONE 10 MG 1 [...] mg / trimethoprim 160 mg oral tablet (2 sources) Dihydrofolate Reductase Inhibitor Antibacterial, Sulfonamide Antimicrobial take [...] hyclate 100 mg delayed release oral tablet (5 sources) Tetracycline-class Drug take 1 tablet by [...] Chronic Aortic; peripheral; and visceral artery aneurysms (3 sources) Abdominal aortic aneurysm without rupture; Translations: [Abdominal aortic aneurysm, without rupture, unspecified] Chronic Asthma (19 sources) Asthma without status asthmaticus; Translations: [Unspecified asthma, uncomplicated] Chronic Cardiac dysrhythmias (6 sources) EKG: ventricular tachycardia; Translations: [Ventricular tachycardia seen on director of cardiac rehabilitation] 10-11-2022 Chronic Cardiac dysrhythmias (4 sources) Sinus [...] Coronary arteriosclerosis; Translations: [Atherosclerotic heart disease of tanana coronary artery without angina pectoris] Onset: 10-28-2022 [...] Chronic Immunizations and screening for infectious disease (17 sources) Vaccination given; Translations: [Encounter for immunization] Episodic Joint disorders and dislocations; trauma-related (19 sources) Derangement of medial meniscus of left knee; Translations: [Other meniscus derangements, unspecified medial meniscus, left knee] Onset: 05-02-2018 Chronic Nausea and vomiting (18 sources) Nausea; Translations: [Nausea] Onset: 07-10-2022 Episodic Osteoarthritis (20 sources) Osteoarthritis of right knee joint; Translations: [Unilateral primary osteoarthritis, right knee] Onset: 03-16-2019 Chronic Other aftercare (1 source) Other assisted (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; Translations: [OTH LONGTERM CURRENT DRUG THERAPY] Onset: 10-13-2022 Episodic Other circulatory disease (2 sources) Elevated blood-pressure reading without diagnosis of hypertension; Translations: [Elevated blood-pressure reading, without diagnosis of hypertension] Episodic Other connective tissue disease (19 sources) Muscle pain; Translations: [Myalgia, unspecified site] [...] SPACE RIGHT KNEE] Onset: 09-09-2022 Episodic Other connective tissue disease (1 source) Other muscle spasm; Translations: [Muscle spasm] Episodic Other lower respiratory disease (3 sources) [...] of dyspnea] Episodic Other lower respiratory disease (2 sources) Other nonspecific abnormal finding of lung field; Translations: [Other nonspecific abnormal finding of lung field] Episodic Other non-traumatic joint disorders (2 sources) Pain in right knee Episodic Other non-traumatic joint disorders (2 sources) Effusion, right knee Episodic Other non-traumatic joint disorders (14 sources) Shoulder joint pain; Translations: [Pain in right shoulder] Onset: 05-02-2018 Episodic Other non-traumatic joint disorders (19 sources) Joint pain; Translations: [Pain in unspecified [...] conditions (not mental disorders or infectious disease) (19 sources) Tomography - chest abnormal; Translations: [Abnormal findings on diagnostic imaging of other specified body structures] Onset: 03-31-2019 Chronic Mariama-; endo-; and myocarditis; cardiomyopathy (except that caused by tuberculosis or sexually transmitted disease) (8 sources) Cardiomyopathy; Translations: [Other primary cardiomyopathies] Chronic Pleurisy; pneumothorax; pulmonary collapse (18 sources) Atelectasis; Translations: [Atelectasis] Onset: 11-03-2022 Episodic Pneumonia (except that caused by tuberculosis or sexually transmitted disease) (19 sources) Pneumonia; Translations: [Pneumonia, unspecified organism] Episodic Residual codes; unclassified (3 sources) Sleep apnea; Translations: [Sleep apnea, unspecified] 10-11-2022 Chronic Residual codes; unclassified (4 sources) Sleep apnea, unspecified; Translations: [Unspecified sleep apnea] Onset: 10-10-2022 10-13-2022 Chronic Residual codes; unclassified (17 sources) Sleep disorder; Translations: [Other sleep disorders] Chronic Residual codes; unclassified (17 sources) Obstructive sleep apnea syndrome; Translations: [Obstructive sleep apnea (adult) (pediatric)] Chronic Residual codes; unclassified (2 sources) Obstructive sleep apnea (adult) (pediatric) Chronic Residual codes; unclassified (1 source) Other sleep disorders Chronic Residual codes; unclassified (7 sources) Tobacco use; Translations: [Tobacco use disorder] Onset: 10-10-2022 Episodic Residual codes; unclassified (8 sources) Tobacco user; Translations: [Tobacco use] Onset: 07-29-2015 10-10-2022 Episodic Residual codes; unclassified (11 sources) Contact with and (suspected) exposure to other hazardous substances; Translations: [Exposure to potentially hazardous substance] Episodic Residual codes; unclassified (16 sources) Tobacco dependence syndrome; Translations: [Tobacco use] Episodic Septicemia (except in labor) (17 sources) Sepsis; Translations: [Sepsis, unspecified organism] Episodic Spondylosis; intervertebral disc disorders; other back problems (19 sources) Neck pain; Translations: [Cervicalgia] Episodic Substance-related disorders (20 sources) 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; Translations: [Nicotine dependence, cigarettes, with unspecified nicotine-induced disorders] Onset: 10-13-2022 Chronic Comment on above: 5-6 cig daily; 8 cigs daily; Unclassified (1 source) CONTACT W/AND (SUSP) EXPOS [...] OF NICOTINE DEPEND] Onset: 07-16-2022 Episodic Unclassified (18 sources) Abdominal aortic aneurysm, without rupture, unspecified; Translations: [Abdominal aortic aneurysm, without rupture, unspecified] Unclassified (1 source) Adverse effects of other and unspecified bacterial vaccines; Translations: [Adverse effects of other and unspecified bacterial vaccines] Unclassified (1 source) COUGH, UNSPECIFIED; Translations: [COUGH, UNSPECIFIED] Onset: 07-05-2022 Unclassified (2 sources) Abdominal aortic aneurysm (AAA) without rupture, unspecified part I71.40 Results Test Name Value Interpretation Reference Range Facility Office Visit (Cardiology)on 12-24-2022 Follow-up visit Diagnoses/Problems Assessed Coronary artery disease involving tanana coronary artery of tanana heart without angina pectoris (414.01) (I25.10) Preoperative [...] we can help. You may also call [phone] for free resources and assistance.; Status:Complete - [...] December. 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 Based on current guidelines and most recent literature, this is an appropriate indication to withdraw antiplatelet therapy and proceed with urgent endobronchial biopsy for diagnostic purposes, notably his [place] stents that were recently placed have have [...] MG Sublingu (more content not included)... Normal [employer] Tobacco Screening.on 023 Fall risk assessment c) Not medically indicated -[facility] y 250 DO Work Phone: Tobacco use status [facility] a) Yes [facility] Work Phone: Tobacco Screening. Yes [facility] [facility] 250 DO Work Phone: CT chest w [facility] 11-03-2022 CT chest w [facility] [place] [address] [place] [address] Scan Report Signed Patient: Hector Gaspar SR MR#: [id number] : 1960 Acct:[id number] Age/Sex: 62 / M ADM Date: 11/03/22 Loc: CT Room: Type: [facility] Attending Dr: Adi Campos MD Copies to: [...] Layton Jr., D.OEhsan11/03/2022 2:03 PM Dictation Location: [place] [address] Transcribed By: [facility] 11/03/22 140 Dictated By: Parrish Layton Jr, DO 11/03/22 1358 Signed By: 11/03/22 140 [facility] Cardiovasc Arrhythmia Result son 11-02-2022 Cardiovasc Arrhythmia Results Reason For Visit Reason for Visit: Holter Monitor: HECTOR is here for the application of a 48 hour Holter monitor. Ordering Physician: JANINE CUNHA Diagnosis: CAD SINUS PAUSE [facility] equipment agreement signed. HECTOR singh monitor is to be returned on: 11-03-22 Monitor number [id number] applied. Holter monitor returned and downloaded. Procedure [...] symptomatic Diagnosis/Problems Assessed Coronary artery disease involving tanana coronary artery of tanana heart without angina pectoris (414.01) (I25.10) Sinus pause (426.6) (I45.5) Future Appointments Date/TimeProviderSpecialt ySite 01/19/2023 02:30 Alok Kirkland DOCardiology703 [facility] 2 Jonathan 250 DO Signatures Electronically signed by : Mallory Fan MA; Nov 02 2022 2:10PM EST (Author) Electronically signed by : Mohsen Gonsalves MD; Nov 08 2022 5:34PM EST (Author) Normal [employer] Basic Metabolic Panelon 04-0 Anion gap [Moles/Vol] 11.6 mmol/L Normal 6.0-15.[address] [facility] Comment on above: Order Comment: PT NO T FASTING Performed By: #### C MP, MG, HS TROP, A1C WTH eA, LIPID, CBC #### [facility] [address] Calcium [Mass/Vol] 9.5 mg/dL Normal 8.6-10.3 [facility] Comment on above: Order Comment: PT NO T FASTING Result Comment: PERF ORMED BY: [place] [address] PATHOLOGIST [employer]ENTR[employer] OFFICE EQUIPMENT INSTALLER JANETTE DE LA FUENTE M.D. Performed By: #### C MP, MG, HS TROP, A1C WTH eA, LIPID, CBC #### [address] Chloride [Moles/Vol] 107 mmol/L Normal 98-107 [facility] Comment on above: Order Comment: PT NO T FASTING Performed By: #### C MP, MG, HS TROP, A1C WTH eA, LIPID, CBC #### [facility] [address] [place] [address] CO2 [Moles/Vol] 25.8 mmol/L Normal 21.0-31.0 [facility] Comment on above: Order Comment: PT NO T FASTING Performed By: #### C MP, MG, HS TROP, A1C WTH eA, LIPID, CBC #### [facility] [address] [place] [address] Creatinine [Mass/Vol] 1.16 mg/dL Normal 0.70-1.30 [facility] Comment on above: Order Comment: PT NO T FASTING Performed By: #### C MP, MG, HS TROP, A1C WTH eA, LIPID, CBC #### [facility] [address] [place] [address] [place] GFR/1.73 sq M.predicted MDRD (S/P/Bld) [Vol rate/Area] mL/min/{1.73_m2} [facility] Comment on above: Order Comment: PT NO T FASTING Performed By: #### C MP, MG, HS TROP, A1C WTH eA, LIPID, CBC #### [facility] [address] Glucose [Mass/Vol] 100 mg/dL Normal 70-100 [facility] Comment on above: Order Comment: PT NO T FASTING Result Comment: [facility] Glucose Reference Range is dependent on time and content of last meal. Glucose of more than 200 mg/dL in a nonstressed, ambulatory subject supports the diagnosis of Diabetes Mellitus. ADA recommended reference range Performed By: #### C MP, MG, HS TROP, A1C WTH eA, LIPID, CBC #### [facility] [address] Potassium [Moles/Vol] 4.4 mmol/L Normal 3.5-5.1 [facility] Comment on above: Order Comment: PT NO T FASTING Performed By: #### C MP, MG, HS TROP, A1C WTH eA, LIPID, CBC #### [facility] [address] [place] [address] [place] Sodium [Moles/Vol] 140 mmol/L Normal 136-145 [facility] Comment on above: Order Comment: PT NO T FASTING Performed By: #### C MP, MG, HS TROP, A1C WTH eA, LIPID, CBC #### [facility] [address] [place] [address] [place] Urea nitrogen [Mass/Vol] 27 mg/dL High 7-25 [place] Comment on above: Order Comment: PT NO T FASTING Performed By: #### C MP, MG, HS TROP, A1C WTH eA, LIPID, CBC #### [facility] [address] [place] [address] [place] Calcium [Mass/volume] in Ser um or PlasmaOrdered By: Janine Cunha on 10-28-2022 Calcium [Mass/Vol] 9.5 mg/dL 8.6-10.3 [facility] Carbon dioxide, total [Moles /volume] in Serum or PlasmaOrdered By: Janine Cunha on 10-28-2022 CO2 [Moles/Vol] 25.8 mmol/L 21.0-31.0 [facility] Chloride [Moles/volume] in S lisa or PlasmaOrdered By: Janine Cunha on 10-28-2022 Chloride [Moles/Vol] 107 mmol/L 98-107 [facility] Creatinine [Mass/volume] in Serum or PlasmaOrdered By: Janine Cunha on 10-28-2022 Creatinine [Mass/Vol] 1.16 mg/dL 0.70-1.30 [facility] Glucose [Mass/volume] in Ser um or PlasmaOrdered By: Janine Cunha on 10-28-2022 Glucose [Mass/Vol] 100 mg/dL 70-100 [facility] Comment on above: ADA recommended refe rence rangeRandom Glucose Reference Range is dependent on time and content of last meal. Glucose of more than 200 mg/dL in a nonstressed, ambulatory subject supports the diagnosis of Diabetes Mellitus. No Panel InformationOrdered By: Janine Cunha on 10-28-2022 Estimated GFR (CKD-EPI) > 60.0 mL/Min [facility] Creatinine Clearance (Chem N/A [place] No Panel Informationon 10-28 > 60.0 Normal [facility] 600 DO Work Phone: 11.6\S\11.6 Normal 6.0-15.0 [facility] 600 DO Work Phone: 9.5\S\9.5 Normal 8.6-10.3 [facility] 600 DO Work Phone: Comment on above: PERFORMED BY:[facility] [place] [id number] MEDICAL DIRECTORJANETTE DE LA FUENTE M.D. 25.8\S\25.8 Normal 21.0-31.0 [facility] 600 DO Work Phone: 107\S\107 Normal 98-107 [facility] 600 DO Work Phone: [phone] 4.4\S\4.4 Normal 3.5-5.1 [facility] 600 DO Work Phone: 140\S\140 Normal 136-145 [facility] Cristian 600 DO Work Phone: 1.16\S\1.16 Normal 0.70-1.30 [facility] Cristian 600 DO Work Phone: 27\S\27 above high threshold 7-25 [facility] Cristian 600 DO Work Phone: 100\S\100 Normal 70-100 [facility] Cristian 600 DO Work Phone: Comment on above: Random Glucose Refer ence Range is dependent on time and content of last meal. Glucose of more than 200 mg/dL in a nonstressed, ambulatory subject supports the diagnosis of Diabetes Mellitus. ADA recommended reference range Potassium [Moles/volume] in Serum or PlasmaOrdered By: Janine Cunha on 10-28-2022 Potassium [Moles/Vol] 4.4 mmol/L 3.5-5.1 [facility] Serum or plasma anion gap de terminationOrdered By: Janine Cunha on 10-28-2022 Anion gap [Moles/Vol] 11.6 mmol/L 6.0-15.[address] [facility] Sodium [Moles/volume] in Ser um or PlasmaOrdered By: Janine Cunha on 10-28-2022 Sodium [Moles/Vol] 140 mmol/L 136-145 [facility] Urea nitrogen [Mass/volume] in Serum or PlasmaOrdered By: Janine Cunha on 10-28-2022 Urea nitrogen [Mass/Vol] 27 mg/dL 7-25 [place] Tobacco Screening.on 023 Adult depression screening assessment No [facility] y 250 DO Work Phone: Fall risk assessment a) No falls within the last year [facility] 250 DO Work Phone: Tobacco use status CPHS a) Yes [facility] 250 DO Work Phone: Tobacco Screening. Yes [facility] y 250 DO Work Phone: B-Type Natriuretic Peptideon 10-12-2022 Natriuretic peptide B (Bld) [Mass/Vol] 91.0 pg/mL Normal 5-100 [place] Comment on above: Result Comment: PERF ORMED BY: [place] [address] PATHOLOGIST [employer]ENTR[employer] OFFICE EQUIPMENT INSTALLER JANETTE DE LA FUENTE M.D. Performed By: #### C MP, MG, HS TROP, A1C WTH eA, LIPID, CBC #### [facility] [address] Basic Metabolic Panelon 09-24 Anion gap [Moles/Vol] 12.0 mmol/L Normal 6.0-15.[address] [facility] Comment on above: Performed By: #### B MP, MG, BNP #### [facility] [address] Calcium [Mass/Vol] 9.0 mg/dL Normal 8.6-10.3 [facility] Comment on above: Performed By: #### B MP, MG, BNP #### [facility] [address] [place] [address] [place] Chloride [Moles/Vol] 107 mmol/L Normal 98-107 [facility] Comment on above: Performed By: #### B MP, MG, BNP #### [facility] [address] CO2 [Moles/Vol] 25.2 mmol/L Normal 21.0-31.0 [facility] Comment on above: Performed By: #### B MP, MG, BNP #### [facility] [address] [place] [address] [place] Creatinine [Mass/Vol] 1.09 mg/dL Normal 0.70-1.30 [facility] Comment on above: Performed By: #### B MP, MG, BNP #### [facility] [address] [place] [address] [place] Creatinine Clr Calc Pharmacy 79.69 Normal [place] Comment on above: Performed By: #### B MP, MG, BNP #### [facility] [address] [place] [address] [place] GFR/1.73 sq M.predicted MDRD (S/P/Bld) [Vol rate/Area] mL/min/{1.73_m2} Normal [place] Comment on above: Performed By: #### B MP, MG, BNP #### [facility] [address] [place] [address] [place] Glucose [Mass/Vol] 100 mg/dL Normal 74-109 [facility] Comment on above: Result Comment: [facility] Glucose Reference Range is dependent on time and content of last meal. Glucose of more than 200 mg/dL in a nonstressed, ambulatory subject supports the diagnosis of Diabetes Mellitus. ADA recommended reference range Performed By: #### B MP, MG, BNP #### [facility] [address] Potassium [Moles/Vol] 4.2 mmol/L Normal 3.5-5.1 [facility] Comment on above: Performed By: #### B MP, MG, BNP #### [facility] [address] [place] [address] [place] Sodium [Moles/Vol] 140 mmol/L Normal 136-145 [facility] Comment on above: Performed By: #### B MP, MG, BNP #### [facility] [address] [place] [address] [place] Urea nitrogen [Mass/Vol] 23 mg/dL Normal 7-25 [place] Comment on above: Performed By: #### B MP, MG, BNP #### [facility] [address] [place] [address] [place] Calcium [Mass/volume] in Ser um or PlasmaOrdered By: Rubén Tatum on 10-12-2022 Calcium [Mass/Vol] 9.0 mg/dL 8.6-10.3 [facility] Carbon dioxide, total [Moles /volume] in Serum or PlasmaOrdered By: Rubén Tatum on 10-12-2022 CO2 [Moles/Vol] 25.2 mmol/L 21.0-31.0 [facility] [facility] Chloride [Moles/volume] in S lisa or PlasmaOrdered By: Rubén Tatum on 10-12-2022 Chloride [Moles/Vol] 107 mmol/L 98-107 [facility] Creatinine [Mass/volume] in Serum or PlasmaOrdered By: Rubén Tatum on 10-12-2022 Creatinine [Mass/Vol] 1.09 mg/dL 0.70-1.30 [facility] Glucose [Mass/volume] in Ser um or PlasmaOrdered By: Rubén Tatum on 10-12-2022 Glucose [Mass/Vol] 100 mg/dL 74-109 [facility] Comment on above: ADA recommended refe rence rangeRandom Glucose Reference Range is dependent on time and content of last meal. Glucose of more than 200 mg/dL in a nonstressed, ambulatory subject supports the diagnosis of Diabetes Mellitus. Laboratory - Chemistry and C hemistry - challengeOrdered By: Rubén Tatum on 10-12-2022 GFR/1.73 sq M.predicted MDRD (S/P/Bld) [Vol rate/Area] mL/min/{1.73_m2} [place] Magnesiumon 10-12-2022 Magnesium [Mass/Vol] 2.2 mg/dL Normal 1.9-2.7 [facility] Comment on above: Result Comment: PERF ORMED BY: [place] [address] PATHOLOGIST [employer]MENT INSTALLER JANETTE DE LA FUENTE M.D. Performed By: #### B MP, MG, BNP #### [address] Magnesium [Mass/volume] in S lisa or PlasmaOrdered By: Rubén Tatum on 10-12-2022 Magnesium [Mass/Vol] 2.2 mg/dL 1.9-2.7 [facility] Natriuretic peptide B [Mass/ Vol]Ordered By: Rubén Tatum on 10-12-2022 Natriuretic peptide B (Bld) [Mass/Vol] 91.0 pg/mL 5-100 [place] No Panel InformationOrdered By: Rubén Tatum on 10-12-2022 Pharmacy Creatinine Clearance (Chem 79.69 [place] Potassium [Moles/volume] in Serum or PlasmaOrdered By: Rubén Tatum on 10-12-2022 Potassium [Moles/Vol] 4.2 mmol/L 3.5-5.1 [facility] Serum or plasma anion gap de terminationOrdered By: Rubén Tatum on 10-12-2022 Anion gap [Moles/Vol] 12.0 mmol/L 6.0-15.[address] [facility] Sodium [Moles/volume] in Ser um or PlasmaOrdered By: Rubén Tatum on 10-12-2022 Sodium [Moles/Vol] 140 mmol/L 136-145 [facility] Urea nitrogen [Mass/volume] in Serum or PlasmaOrdered By: Rubén Tatum on 10-12-2022 Urea nitrogen [Mass/Vol] 23 mg/dL 7 [place] A1C with Estimated Average G tom 10-11-2022 Glucose [Mass/Vol] 120 mg/dL Normal [facility] Comment on above: Result Comment: PERF ORMED BY: [place] [address] PATHOLOGIST [employer]MENT INSTALLER JANETTE DE LA FUENTE M.D. Performed By: #### C MP, MG, HS TROP, A1C WTH eA, LIPID, CBC #### [facility] [address] [place] [address] HbA1c (Bld) [Mass fraction] 5.8 % High 4.3-5.6 [place] Comment on above: Result Comment: Incr eased risk for diabetes: 5.7 - 6.4 diabetes: >6.4 glycemic control for adults with diabetes: <7.0 Performed By: #### C MP, MG, HS TROP, A1C WTH eA, LIPID, CBC #### [facility] [address] Alanine aminotransferase [En zymatic activity/volume] in Serum or PlasmaOrdered By: Rubén Tatum on 10-11-2022 ALT [Catalytic activity/Vol] 18 U/L 752 [place] Albumin [Mass/volume] in Ser um or Plasma by Bromocresol green (BCG) dye binding methoOrdered By: Rubén Tatum on 10-11-2022 Albumin BCG dye [Mass/Vol] 3.9 g/dL 3.5-5.7 [place] Alkaline phosphatase [Enzyma tic activity/volume] in Serum or PlasmaOrdered By: Rubén Tatum on 10-11-2022 ALP [Catalytic activity/Vol] 46 U/L 34-104 [place] Aspartate aminotransferase [ Enzymatic activity/volume] in Serum or PlasmaOrdered By: Rubén Tatum on 10-11-2022 AST [Catalytic activity/Vol] 30 U/L 13-39 [place] B-Type Natriuretic Peptideon 10-11-2022 Natriuretic peptide B (Bld) [Mass/Vol] 157.0 pg/mL High 5-100 [place] Comment on above: Result Comment: PERF ORMED BY: [place] [address] PATHOLOGIST [employer]MENT INSTALLER JANETTE DE LA FUENTE M.D. Performed By: #### C MP, MG, HS TROP, A1C WTH eA, LIPID, CBC #### [address] Basophils Auto (Bld) [#/Vol] Ordered By: Galo Dent on 10-11-2022 Basophils (Bld) [#/Vol] 0.0 10*3/uL 0.0-0.2 [place] Basophils/100 WBC Auto (Bld) Ordered By: Galo Dent on 10-11-2022 Basophils/100 WBC (Bld) 0.5 % . [place] Bilirubin.total [Mass/volume ] in Serum or PlasmaOrdered By: Rubén Tatum on 10-11-2022 Bilirubin [Mass/Vol] 0.4 mg/dL 0.3-1.0 [facility] Cholesterol [Mass/volume] in Serum or PlasmaOrdered By: Rubén Tatum on 10-11-2022 Cholesterol [Mass/Vol] 221 mg/dL 140-[address] [facility] Comment on above: Chol less than 200 m g/dl low riskChol 201-239 mg/dl borderline riskChol 240 mg/dl and greater high risk Cholesterol in LDL Calc [Mas s/Vol]Ordered By: Rubén Tatum on 10-11-2022 Cholesterol in LDL [Mass/Vol] 149 mg/dL 0-100 [place] Comment on above: LDL ATP III CLASSIFI CATIONLDL less than 100 mg/dL OptimalLDL 100-129 mg/dL Near or above optimalLDL 130-159 mg/dL Borderline highLDL 160-189 mg/dL HighLDL greater than 189 mg/dL Very high Cholesterol in VLDL Calc [Ma ss/Vol]Ordered By: Rubén Tatum on 10-11-2022 Cholesterol in VLDL [Mass/Vol] 30 mg/dL [place] Complete Blood Count Auto Di ffon 10-11-2022 Basophils (Bld) [#/Vol] 0.0 10*3/uL Normal 0.0-0.2 [place] Comment on above: Result Comment: PERF ORMED BY: [place] [address] PATHOLOGIST [employer]MENT INSTALLER JANETTE DE LA FUENTE M.D. Performed By: #### C MP, MG, HS TROP, A1C WTH eA, LIPID, CBC #### [address] Basophils/100 WBC (Bld) 0.5 % Normal . [place] Comment on above: Performed By: #### C MP, MG, HS TROP, A1C WTH eA, LIPID, CBC #### [facility] [address] [place] [address] Eosinophils (Bld) [#/Vol] 0.2 10*3/uL Normal 0.0-0.45 [place] Comment on above: Performed By: #### C MP, MG, HS TROP, A1C WTH eA, LIPID, CBC #### [facility] [address] Eosinophils/100 WBC (Bld) 3.7 % Normal . [place] Comment on above: Performed By: #### C MP, MG, HS TROP, A1C WTH eA, LIPID, CBC #### [address] Erythrocyte distribution width (RBC) [Ratio] 14.9 % High 12.0-14.8 [place] Comment on above: Performed By: #### C MP, MG, HS TROP, A1C WTH eA, LIPID, CBC #### [address] Hematocrit (Bld) [Volume fraction] 37.7 % Low 38.8-50.0 [place] Comment on above: Performed By: #### C MP, MG, HS TROP, A1C WTH eA, LIPID, CBC #### [address] Hemoglobin (Bld) [Mass/Vol] 12.7 g/dL Low 13.0-17.0 [place] Comment on above: Performed By: #### C MP, MG, HS TROP, A1C WTH eA, LIPID, CBC #### [address] Lymphocytes (Bld) [#/Vol] 1.4 10*3/uL Normal 1.00-4.8 [place] Comment on above: Performed By: #### C MP, MG, HS TROP, A1C WTH eA, LIPID, CBC #### [address] Lymphocytes/100 WBC (Bld) 21.8 % Normal . [place] Comment on above: Performed By: #### C MP, MG, HS TROP, A1C WTH eA, LIPID, CBC #### [address] MCH (RBC) [Entitic mass] 30.1 pg Normal 27.5-35.2 [place] Comment on above: Performed By: #### C MP, MG, HS TROP, A1C WTH eA, LIPID, CBC #### [address] MCV (RBC) [Entitic vol] 89.4 fL Normal 83.5-101 [place] Comment on above: Performed By: #### C MP, MG, HS TROP, A1C WTH eA, LIPID, CBC #### [address] Mean Corpuscular HGB Conc 33.7 g/dL Normal 32.5-35.6 [place] Comment on above: Performed By: #### C MP, MG, HS TROP, A1C WTH eA, LIPID, CBC #### [facility] [address] Monocytes (Bld) [#/Vol] 0.7 10*3/uL Normal 0.0-0.8 [place] Comment on above: Performed By: #### C MP, MG, HS TROP, A1C WTH eA, LIPID, CBC #### [facility] [address] Monocytes/100 WBC (Bld) 10.2 % Normal . [place] Comment on above: Performed By: #### C MP, MG, HS TROP, A1C WTH eA, LIPID, CBC #### [address] Neutrophils (Bld) [#/Vol] 4.2 10*3/uL Normal 1.8-7.7 [place] Comment on above: Performed By: #### C MP, MG, HS TROP, A1C WTH eA, LIPID, CBC #### [place] [address] [place] Neutrophils/100 WBC (Bld) 63.8 % Normal . [place] Comment on above: Performed By: #### C MP, MG, HS TROP, A1C WTH eA, LIPID, CBC #### [place] [address] [place] NRBC% 0.1 /100{WBC} Normal 0-0.5 [place] Comment on above: Performed By: #### C MP, MG, HS TROP, A1C WTH eA, LIPID, CBC #### [facility] [address] [place] [address] [place] Platelet mean volume (Bld) [Entitic vol] 7.3 fL Normal 6.6-10.1 [place] Comment on above: Performed By: #### C MP, MG, HS TROP, A1C WTH eA, LIPID, CBC #### [place] [address] [place] Platelets (Bld) [#/Vol] 203 10*3/uL Normal 150-450 [place] Comment on above: Performed By: #### C MP, MG, HS TROP, A1C WTH eA, LIPID, CBC #### [facility] [address] RBC (Bld) [#/Vol] 4.21 10*6/uL Normal 3.90-5.60 [facility] Comment on above: Performed By: #### C MP, MG, HS TROP, A1C WTH eA, LIPID, CBC #### [facility] [address] WBC (Bld) [#/Vol] 6.6 10*3/uL Normal 4.1-10.5 [facility] Comment on above: Performed By: #### C MP, MG, HS TROP, A1C WTH eA, LIPID, CBC #### [facility] [address] Comprehensive Metabolic Pane weston 10-11-2022 Albumin [Mass/Vol] 3.9 g/dL Normal 3.5-5.7 [facility] Comment on above: Order Comment: FASTI NG Y Performed By: #### C MP, MG, HS TROP, A1C WTH eA, LIPID, CBC #### [facility] [address] Albumin/Globulin [Mass ratio] 1.6 {ratio} Normal [place] Comment on above: Order Comment: FASTI NG Y Performed By: #### C MP, MG, HS TROP, A1C WTH eA, LIPID, CBC #### [facility] [address] ALP [Catalytic activity/Vol] 46 U/L Normal 34-104 [place] Comment on above: Order Comment: FASTI NG Y Performed By: #### C MP, MG, HS TROP, A1C WTH eA, LIPID, CBC #### [facility] [address] ALT [Catalytic activity/Vol] 18 U/L Normal 7-52 [place] Comment on above: Order Comment: FASTI NG Y Performed By: #### C MP, MG, HS TROP, A1C WTH eA, LIPID, CBC #### [facility] [address] Anion gap [Moles/Vol] 10.3 mmol/L Normal 6.0-15.[address] [facility] Comment on above: Order Comment: FASTI NG Y Performed By: #### C MP, MG, HS TROP, A1C WTH eA, LIPID, CBC #### [facility] [address] AST [Catalytic activity/Vol] 30 U/L Normal 13-39 [place] Comment on above: Order Comment: FASTI NG Y Performed By: #### C MP, MG, HS TROP, A1C WTH eA, LIPID, CBC #### [address] Bilirubin [Mass/Vol] 0.4 mg/dL Normal 0.3-1.0 [facility] Comment on above: Order Comment: FASTI NG Y Performed By: #### C MP, MG, HS TROP, A1C WTH eA, LIPID, CBC #### [address] Calcium [Mass/Vol] 8.9 mg/dL Normal 8.6-10.3 [facility] Comment on above: Order Comment: FASTI NG Y Performed By: #### C MP, MG, HS TROP, A1C WTH eA, LIPID, CBC #### [facility] [address] Chloride [Moles/Vol] 109 mmol/L High 98-107 [facility] Comment on above: Order Comment: FASTI NG Y Performed By: #### C MP, MG, HS TROP, A1C WTH eA, LIPID, CBC #### [address] CO2 [Moles/Vol] 23.7 mmol/L Normal 21.0-31.0 [facility] Comment on above: Order Comment: FASTI NG Y Performed By: #### C MP, MG, HS TROP, A1C WTH eA, LIPID, CBC #### [facility] [address] Creatinine [Mass/Vol] 1.00 mg/dL Normal 0.70-1.30 [facility] Comment on above: Order Comment: FASTI NG Y Performed By: #### C MP, MG, HS TROP, A1C WTH eA, LIPID, CBC #### [facility] [address] [place] [address] [place] Creatinine Clr Calc Pharmacy 86.86 [facility] Comment on above: Order Comment: FASTI NG Y Performed By: #### C MP, MG, HS TROP, A1C WTH eA, LIPID, CBC #### [facility] [address] GFR/1.73 sq M.predicted MDRD (S/P/Bld) [Vol rate/Area] mL/min/{1.73_m2} [facility] Comment on above: Order Comment: FASTI NG Y Performed By: #### C MP, MG, HS TROP, A1C WTH eA, LIPID, CBC #### [facility] [address] Globulin (S) [Mass/Vol] 2.5 g/dL [facility] Comment on above: Order Comment: FASTI NG Y Performed By: #### C MP, MG, HS TROP, A1C WTH eA, LIPID, CBC #### [facility] [address] Glucose [Mass/Vol] 96 mg/dL Normal 74-109 [facility] Comment on above: Order Comment: FASTI NG Y Result Comment: [place] Glucose Reference Range is dependent on time and content of last meal. Glucose of more than 200 mg/dL in a nonstressed, ambulatory subject supports the diagnosis of Diabetes Mellitus. ADA recommended reference range Performed By: #### C MP, MG, HS TROP, A1C WTH eA, LIPID, CBC #### [facility] [address] Potassium [Moles/Vol] 4.0 mmol/L Normal 3.5-5.1 [facility] Comment on above: Order Comment: FASTI NG Y Performed By: #### C MP, MG, HS TROP, A1C WTH eA, LIPID, CBC #### [facility] [address] Protein [Mass/Vol] 6.4 g/dL Normal 6.4-8.9 [facility] Comment on above: Order Comment: FASTI NG Y Performed By: #### C MP, MG, HS TROP, A1C WTH eA, LIPID, CBC #### [facility] [address] Sodium [Moles/Vol] 139 mmol/L Normal 136-145 [facility] Comment on above: Order Comment: FASTI NG Y Performed By: #### C MP, MG, HS TROP, A1C WTH eA, LIPID, CBC #### [facility] [address] Urea nitrogen [Mass/Vol] 17 mg/dL Normal 7-25 [place] Comment on above: Order Comment: FASTI NG Y Performed By: #### C MP, MG, HS TROP, A1C WTH eA, LIPID, CBC #### [facility] [address] ECG 12 lead ECGon 10-11-2022 ECG 12 lead ECG [facility] [place] [address] [place] [address] Electrocardiograph Report Signed Patient: Hector Gaspar SR MR#: [id number] 187 : 1960 Acct:[id number] Age/Sex: 62 / M ADM Date: 10/10/22 Loc: Room: [address] [place] [address] Type: ADM IN Attending Dr: Barbara Rivero [...] By Edilson Cruz DO 10/11 1133 Normal [place] Eosinophils Auto (Bld) [#/Vo l]Ordered By: Galo Dent on 10-11-2022 Eosinophils (Bld) [#/Vol] 0.2 10*3/uL 0.0-0.45 [place] Eosinophils/100 WBC Auto (Bl d)Ordered By: Galo Dent on 10-11-2022 Eosinophils/100 WBC (Bld) 3.7 % . [place] Erythrocyte distribution wid th Auto (RBC) [Ratio]Ordered By: Galo Dent on 10-11-2022 Erythrocyte distribution width (RBC) [Ratio] 14.9 % 12.0-14.8 [place] Globulin Calc (S) [Mass/Vol] Ordered By: Rubén Tatum on 10-11-2022 Globulin (S) [Mass/Vol] 2.5 g/dL [place] Glucose mean value [Mass/vol ume] in Blood Estimated from glycated hemoglobinOrdered By: Galo Dent on 10-11-2022 Average glucose Estimated from glycated hemoglobin (Bld) [Mass/Vol] 120 mg/dL [place] Hematocrit Auto (Bld) [Volum e fraction]Ordered By: Galo Dent on 10-11-2022 Hematocrit (Bld) [Volume fraction] 37.7 % 38.8-50.0 [place] Hemoglobin A1c percentageOrd ered By: Galo Dent on 10-11-2022 HbA1c (Bld) [Mass fraction] 5.8 % 4.3-5.6 [place] Comment on above: Increased risk for d iabetes: 5.7 - 6.4diabetes: >6.4glycemic control for adults with diabetes: <7.0 Hemoglobin [Mass/volume] in BloodOrdered By: Galo Dent on 10-11-2022 Hemoglobin (Bld) [Mass/Vol] 12.7 g/dL 13.0-17.0 [place] Laboratory - CoagulationOrde red By: Galoyariel Dent on 10-11-2022 PT Coag (PPP) [Time] 11.3 s 9.0-12.9 [facility] Leukocytes [#/volume] correc kal for nucleated erythrocytes in Blood by Automated counOrdered By: Galo Dent on 10-11-2022 WBC corrected for nucl RBC Auto (Bld) [#/Vol] 6.6 10*3/uL 4.1-10.5 [place] Lipid Panelon 10-11-2022 Cholesterol [Mass/Vol] 221 mg/dL High 140-[address] [facility] Comment on above: Order Comment: TONIA Clinton Result Comment: Chol less than 200 mg/dl low risk Chol 201-239 mg/dl borderline risk Chol 240 mg/dl and greater high risk Performed By: #### C MP, MG, HS TROP, A1C WTH eA, LIPID, CBC #### [facility] [address] Cholesterol in HDL [Mass/Vol] 42 mg/dL Normal 29-71 [place] Comment on above: Order Comment: TONIA Clinton Result Comment: HDL CHOL ATP-III CLASSIFICATION Cardiovascular Risk HDL > or equal to 60 mg/dL LOW HDL < 40 mg/dL HIGH Performed By: #### C MP, MG, HS TROP, A1C WTH eA, LIPID, CBC #### [facility] [address] Cholesterol.total/Chol esterol in HDL [Mass ratio] 5.3 {ratio} Normal <5.0 [place] Comment on above: Order Comment: TONIA Clinton Result Comment: PERF ORMED BY: [place] [address] PATHOLOGIST [employer] INSTALLER JANETTE DE LA FUENTE M.D. Performed By: #### C MP, MG, HS TROP, A1C WTH eA, LIPID, CBC #### [facility] [address] [place] [id number] [facility] LDL Cholesterol,Calculated 149 mg/dL High 0-100 [place] Comment on above: Order Comment: TONIA Clinton Result Comment: LDL ATP III CLASSIFICATION LDL less than 100 mg/dL Optimal LDL 100-129 mg/dL Near or above optimal LDL 130-159 mg/dL Borderline high LDL 160-189 mg/dL High LDL greater than 189 mg/dL Very high Performed By: #### C MP, MG, HS TROP, A1C WTH eA, LIPID, CBC #### [facility] [address] Triglyceride w/Reflex 152 mg/dL High 0-149 [facility] Comment on above: Order Comment: TONIA Clinton Result Comment: TRIG ATP III CLASSIFICATION TRIG less than 150 mg/dL Normal TRIG 150-199 mg/dL Borderline high TRIG 200-500 mg/dL High TRIG greater than 500 mg/dL Very high Standard traceable to the Center for Disease Conrtrol and Prevention (CDC) test method. Performed By: #### C MP, MG, HS TROP, A1C WTH eA, LIPID, CBC #### [facility] [address] VLDL CHOLESTEROL 30 mg/dL Normal [facility] Comment on above: Order Comment: TONIA Clinton Performed By: #### C MP, MG, HS TROP, A1C WTH eA, LIPID, CBC #### [facility] [address] [place] [id number] [facility] Lymphocytes Auto (Bld) [#/Vo l]Ordered By: Galo Dent on 10-11-2022 Lymphocytes (Bld) [#/Vol] 1.4 10*3/uL 1.00-4.8 [place] Lymphocytes/100 WBC Auto (Bl d)Ordered By: Galo Dent on 10-11-2022 Lymphocytes/100 WBC (Bld) 21.8 % . [place] MCH Auto (RBC) [Entitic mass ]Ordered By: Galo Dent on 10-11-2022 MCH (RBC) [Entitic mass] 30.1 pg 27.5-35.2 [place] MCHC Auto (RBC) [Mass/Vol]Or dered By: Gaol Dent on 10-11-2022 MCHC (RBC) [Mass/Vol] 33.7 g/dL 32.5-35.6 [facility] MCV Auto (RBC) [Entitic vol] Ordered By: Galo Dent on 10-11-2022 MCV (RBC) [Entitic vol] 89.4 fL 83.5-101 [place] Magnesiumon 10-11-2022 Magnesium [Mass/Vol] 2.0 mg/dL Normal 1.9-2.7 [facility] Comment on above: Order Comment: TONIA Clinton Performed By: #### C MP, MG, HS TROP, A1C WTH eA, LIPID, CBC #### [facility] [address] Monocytes Auto (Bld) [#/Vol] Ordered By: Galo Dent on 10-11-2022 Monocytes (Bld) [#/Vol] 0.7 10*3/uL 0.0-0.8 [place] Monocytes/100 WBC Auto (Bld) Ordered By: Galo Dent on 10-11-2022 Monocytes/100 WBC (Bld) 10.2 % . [place] Neutrophils Auto (Bld) [#/Vo l]Ordered By: Galo Dent on 10-11-2022 Neutrophils (Bld) [#/Vol] 4.2 10*3/uL 1.8-7.7 [place] Neutrophils/100 WBC Auto (Bl d)Ordered By: Galo Dent on 10-11-2022 Neutrophils/100 WBC (Bld) 63.8 % . [place] Nucleated erythrocytes [Pres ence] in Blood by Automated countOrdered By: Galo Dent on 10-11-2022 Nucleated RBC Auto Ql (Bld) 0.1 /100{WBC} 0-0.5 [place] Platelet mean volume Auto (B ld) [Entitic vol]Ordered By: Galo Dent on 10-11-2022 Platelet mean volume (Bld) [Entitic vol] 7.3 fL 6.6-10.1 [place] Platelet poor plasma interna tional normalized ratio (INR) by coagulation assay (relatOrdered By: Galo Dent on 10-11-2022 INR Coag (PPP) [Relative time] 1.0 {INR} [place] Comment on above: INR Therapeutic Rang e [...] 10-11-2022 Platelets (Bld) [#/Vol] 203 10*3/uL 150-450 [place] Protein [Mass/volume] in Ser um or PlasmaOrdered By: Rubén Tatum on 10-11-2022 Protein [Mass/Vol] 6.4 g/dL 6.4-8.9 [facility] Prothrombin Time INRon 10-11 INR Coag (PPP) [Relative time] 1.0 {INR} Normal [place] Comment on above: Result Comment: INR Therapeutic [...] heart valves: 3 - 4.5 PERFORMED BY: [place] [address] PATHOLOGIST [employer] INST[employer]ER JANETTE DE LA FUENTE M.D. Performed By: #### C MP, MG, HS TROP, A1C WTH eA, LIPID, CBC #### [facility] [address] [place] [address] PT Coag (PPP) [Time] 11.3 s Normal 9.0-12.9 [facility] Comment on above: Performed By: #### C MP, MG, HS TROP, A1C WTH eA, LIPID, CBC #### [place] [id number] [place] RBC Auto (Bld) [#/Vol]Ordere d By: Galo Akhtarod on 10-11-2022 RBC (Bld) [#/Vol] 4.21 10*6/uL 3.90-5.60 [facility] Serum or plasma albumin/glob ulin mass ratioOrdered By: Rubén Tatum on 10-11-2022 Albumin/Globulin [Mass ratio] 1.6 {ratio} [place] Serum or plasma high density lipoprotein (HDL) cholesterol measurementOrdered By: Rubén Tatum on 10-11-2022 Cholesterol in HDL [Mass/Vol] 42 mg/dL 29-71 [place] Comment on above: HDL CHOL ATP-III CLA SSIFICATION Cardiovascular RiskHDL > or equal to 60 mg/dL LOWHDL < 40 mg/dL HIGH Serum or plasma total choles terol/high density lipoprotein (HDL) cholesterol mass ratOrdered By: Rubén Tatum on 10-11-2022 Cholesterol.total/Chol esterol in HDL [Mass ratio] 5.3 {ratio} <5.0 [place] Triglyceride [Mass/volume] i n Serum or PlasmaOrdered By: Rubén Tatum on 10-11-2022 Triglyceride [Mass/Vol] 152 mg/dL 0-149 [place] Comment on above: TRIG ATP III CLASSIF ICATIONTRIG less than 150 mg/dL NormalTRIG 150-199 mg/dL Borderline highTRIG 200-500 mg/dL High TRIG greater than 500 mg/dL Very highStandard traceable to the Center for Disease Conrtrol and Prevention (CDC) test method. Troponin I High Sensitivityo n 10-11-2022 Troponin I High Sensitivity 3965.8 pg/mL Off scale high 0.0-20.0 [place] Comment on above: Result Comment: Crit ical Result : Called to and read back by: HECTOR LOCO at: 10/11/2022 06:45:50 by:[id number] PERFORMED BY: [facility] [address] [place] [address] PATHOLOGIST [employer] INST[employer]ER JANETTE DE LA FUENTE M.D. Performed By: #### C MP, MG, HS TROP, A1C WTH eA, LIPID, CBC #### [place] [id number] [facility] Troponin I.cardiac [Mass/vol ume] in Serum or Plasma by Detection limit <= 0.01 ng/Ordered By: Rubén Tatum on 10-11-2022 Troponin I.cardiac DL <= 0.01 ng/mL [Mass/Vol] 3965.8 pg/mL 0.0-20.0 [place] Comment on above: Critical Result : Ca lled to and read back by: HECTOR LOCO at: 10/11/2022 06:45:50 by:[id number] WBC Auto (Bld) [#/Vol]Ordere d By: Galo Dent on 10-11-2022 WBC (Bld) [#/Vol] 6.6 10*3/uL 4.1-10.5 [facility] XR chest 2V*on 10-11-2022 XR chest 2V* [facility] [place] [address] [place] [address] XRay Report Signed Patient: Hector Gaspar SR MR#: [id number] : 1960 Acct:[id number] Age/Sex: 62 / M ADM Date: 10/10/22 Loc: Room: [address] [place] [address] Type: ADM IN Attending Dr: Barbara Rivero [...] Arlin Villafana M.D.10/11/2022 2:29 PM Dictation Location: [place] [address] Transcribed By: [facility] 10/11/22 142 Dictated By: Arlin Villafana II, MD 10/11/221427 Signed By: 10/11/22 142 Normal [place] A1C with Estimated Average G luon 10-10-2022 Glucose [Mass/Vol] 117 mg/dL Normal [facility] Comment on above: Result Comment: PERF ORMED BY: [place] [address] PATHOLOGIST [employer] INSTALLER JANETTE DE LA FUENTE M.D. Performed By: #### C MP, MG, HS TROP, A1C WTH eA, LIPID, CBC #### [facility] [address] [place] [address] HbA1c (Bld) [Mass fraction] 5.7 % High 4.3-5.6 [place] Comment on above: Result Comment: Incr eased risk for diabetes: 5.7 - 6.4 diabetes: >6.4 glycemic control for adults with diabetes: <7.0 Performed By: #### C MP, MG, HS TROP, A1C WTH eA, LIPID, CBC #### [facility] [address] [place] [address] AMYLASEon 10-10-2022 Amylase [Catalytic activity/Vol] 40 U/L Normal 25-115 [facility] Comment on above: Performed By: #### A MY, CMP, LIPA #### [facility] [address] [address] [address] Carrington Chandler Activated partial thrombopla stin time (aPTT) in platelet poor plasma by coagulation aOrdered By: Galo Dent on 10-10-2022 aPTT Coag (PPP) [Time] 35.9 s 25.1-36.[address] [facility] CARDIAC ARLIN ADMITon 023 CK [Catalytic activity/Vol] 530 U/L Critically high 39-308 [facility] Comment on above: Performed By: #### A MY, CMP, LIPA #### [facility] [address] [address] [address] Carrington Chandler CK.MB [Mass/Vol] 60.47 ng/mL Critically high <=3.60 Th e [facility] Comment on above: Performed By: #### A MY, CMP, LIPA #### [facility] [address] [address] [address] Carrington Chandler HSTROP 9166.1 pg/mL Critically high 4.0-76.1 [facility] Comment on above: Result Comment: CUT- OFF POINTS HAVE BEEN ESTABLISHED BASED ON THE FOURTH UNIVERSAL DEFINITIONS OF MYOCARDIAL INFARCTION. THE UPPER REFERENCE LIMIT (URL) OF TROPONIN, DEFINED THE 99TH PERCENTILE OF cTnI DISTRIBUTION IN A REFERENCE POPULATION, HAS BEEN CONFIRMED THE DECISION THRESHOLD FOR [place] DIAGNOSIS. Performed By: #### A MY, CMP, LIPA #### [facility] [address] [place] [address] Dr. Carrington Chandler SAULO 108 ng/mL Critically high 16-96 [facility] Comment on above: Performed By: #### A MY, CMP, LIPA #### [facility] [address] [place] [address] Dr. Carrington Chandler CBC AUTO DIFFon 10-10-2022 BASO # 0.0 103/ul Normal 0.0-0.1 [facility] Comment on above: Performed By: #### B MP #### [facility] [address] [place] [address] Dr. Carrington Chandler Basophils/100 WBC (Bld) 0.4 % Normal 0.2-2.0 [facility] Comment on above: Performed By: #### B MP #### [facility] [address] [address] [address] Carrington Chandler EO # 0.3 103/ul Normal 0.0-0.7 [facility] Comment on above: Performed By: #### B MP #### [facility] [address] [place] [address] Dr. Carrington Chandler Eosinophils/100 WBC (Bld) 4.9 % Normal 0.9-7.0 [facility] Comment on above: Performed By: #### B MP #### [facility] [address] [place] [address] Dr. Carrington Chandler Erythrocyte distribution width (RBC) [Ratio] 13.8 % Normal 11.0-15.0 [facility] Comment on above: Performed By: #### B MP #### [facility] [address] [place] [address] Dr. Carrington Chandler Hematocrit (Bld) [Volume fraction] 38.1 % Critically low 42.0-54.0 [facility] Comment on above: Performed By: #### B MP #### [facility] [address] [place] [address] Dr. Carrington Chandler Hemoglobin (Bld) [Mass/Vol] 13.1 g/dL Critically low 14.0-18.0 [facility] Comment on above: Performed By: #### B MP #### [facility] [address] [place] [address] Dr. Carrington Chandler IG # 0.01 10e3/ul Normal 0.00-0.03 [facility] Comment on above: Performed By: #### B MP #### [facility] [address] [place] [address] Dr. Carrington Chandler IG % 0.2 % Normal 0.0-0.5 [facility] Comment on above: Performed By: #### B MP #### [facility] [address] [place] [address] Dr. Carrington Chandler LYMPH # 1.8 103/ul Normal 1.2-3.8 [facility] Comment on above: Performed By: #### B MP #### [facility] [address] [place] [address] Dr. Carrington Chandler Lymphocytes/100 WBC (Bld) 33.5 % Normal 20.5-60.0 [facility] Comment on above: Performed By: #### B MP #### [facility] [address] [place] [address] Dr. Carrington Chandler MANUAL DIFF REQ NO Normal [facility] Comment on above: Performed By: #### B MP #### [facility] [address] [address] [address] Carrington Chandler MCH (RBC) [Entitic mass] 30.7 pg Normal 25.9-34.0 [facility] Comment on above: Performed By: #### B MP #### [facility] [address] [place] [address] Dr. Carrington Chandler MCHC (RBC) [Mass/Vol] 34.4 g/dL Normal 29.9-35.2 [facility] Comment on above: Performed By: #### B MP #### [facility] [address] [place] [address] Dr. Carrington Chandler MCV (RBC) [Entitic vol] 89.2 fL Normal 80.0-94.0 [facility] Comment on above: Performed By: #### B MP #### [facility] [address] [place] [address] Dr. Carrington Chandler MONO # 0.6 103/ul Normal 0.3-0.8 [facility] Comment on above: Performed By: #### B MP #### [facility] [address] [place] [address] Dr. Carrington Chandler Monocytes/100 WBC (Bld) 11.8 % Normal 1.7-12.0 [facility] Comment on above: Performed By: #### B MP #### [facility] [address] [place] [address] Dr. Carrington Chandler NEUT # 2.6 103/ul Normal 1.4-6.5 [facility] Comment on above: Performed By: #### B MP #### [facility] [address] [place] [address] Dr. Carrington Chandler Neutrophils/100 WBC (Bld) 49.2 % Normal 43.0-75.0 [facility] Comment on above: Performed By: #### B MP #### [facility] [address] [place] [address] Dr. Carrington Chandler Platelet mean volume (Bld) [Entitic vol] 9.2 fL Critically low 9.5-13.5 [facility] Comment on above: Performed By: #### B MP #### [facility] [address] [place], [place] [address] Dr. Carrington Chandler PLT 213 103/ul Normal 150-450 [facility] Comment on above: Performed By: #### B MP #### [facility] [address] [place], [place] [address] Dr. Carrington Chandler RBC 4.27 106/ul Critically low 4.70-6.10 [facility] Comment on above: Performed By: #### B MP #### [facility] [address] [place], [place] [address] Dr. Carrington Chandler WBC 5.4 103/ul Normal 4.0-11.0 [facility] Comment on above: Performed By: #### B MP #### [facility] [id number] Carrington Chandler Complete Blood Count Auto Di ffon 10-10-2022 Basophils (Bld) [#/Vol] 0.0 10*3/uL Normal 0.0-0.2 [place] Comment on above: Result Comment: PERF ORMED BY: [place] [address] PATHOLOGIST [employer] JANETTE DE LA FUENTE M.D. Performed By: #### C MP, MG, HS TROP, A1C WTH eA, LIPID, CBC #### [facility] [address] [place] [address] [place] Basophils/100 WBC (Bld) 0.6 % Normal . [place] Comment on above: Performed By: #### C MP, MG, HS TROP, A1C WTH eA, LIPID, CBC #### [facility] [address] [place] [address] [place] Eosinophils (Bld) [#/Vol] 0.2 10*3/uL Normal 0.0-0.45 [place] Comment on above: Performed By: #### C MP, MG, HS TROP, A1C WTH eA, LIPID, CBC #### [facility] [address] [place] [address] [place] Eosinophils/100 WBC (Bld) 4.4 % Normal . [place] Comment on above: Performed By: #### C MP, MG, HS TROP, A1C WTH eA, LIPID, CBC #### [facility] [address] Erythrocyte distribution width (RBC) [Ratio] 14.6 % Normal 12.0-14.8 [place] Comment on above: Performed By: #### C MP, MG, HS TROP, A1C WTH eA, LIPID, CBC #### [facility] [address] Hematocrit (Bld) [Volume fraction] 36.7 % Low 38.8-50.0 [place] Comment on above: Performed By: #### C MP, MG, HS TROP, A1C WTH eA, LIPID, CBC #### [address] Hemoglobin (Bld) [Mass/Vol] 12.5 g/dL Low 13.0-17.0 [place] Comment on above: Performed By: #### C MP, MG, HS TROP, A1C WTH eA, LIPID, CBC #### [address] Lymphocytes (Bld) [#/Vol] 1.4 10*3/uL Normal 1.00-4.8 [place] Comment on above: Performed By: #### C MP, MG, HS TROP, A1C WTH eA, LIPID, CBC #### [address] Lymphocytes/100 WBC (Bld) 27.5 % Normal . [place] Comment on above: Performed By: #### C MP, MG, HS TROP, A1C WTH eA, LIPID, CBC #### [address] MCH (RBC) [Entitic mass] 30.3 pg Normal 27.5-35.2 [place] Comment on above: Performed By: #### C MP, MG, HS TROP, A1C WTH eA, LIPID, CBC #### [address] MCV (RBC) [Entitic vol] 88.8 fL Normal 83.5-101 [place] Comment on above: Performed By: #### C MP, MG, HS TROP, A1C WTH eA, LIPID, CBC #### [facility] [address] Mean Corpuscular HGB Conc 34.1 g/dL Normal 32.5-35.6 [place] Comment on above: Performed By: #### C MP, MG, HS TROP, A1C WTH eA, LIPID, CBC #### [facility] [address] Monocytes (Bld) [#/Vol] 0.6 10*3/uL Normal 0.0-0.8 [place] Comment on above: Performed By: #### C MP, MG, HS TROP, A1C WTH eA, LIPID, CBC #### [address] Monocytes/100 WBC (Bld) 11.4 % Normal . [place] Comment on above: Performed By: #### C MP, MG, HS TROP, A1C WTH eA, LIPID, CBC #### [address] Neutrophils (Bld) [#/Vol] 2.9 10*3/uL Normal 1.8-7.7 [place] Comment on above: Performed By: #### C MP, MG, HS TROP, A1C WTH eA, LIPID, CBC #### [place] [address] [place] Neutrophils/100 WBC (Bld) 56.1 % Normal . [place] Comment on above: Performed By: #### C MP, MG, HS TROP, A1C WTH eA, LIPID, CBC #### [facility] [address] [place] [address] [place] NRBC% 0.1 /100{WBC} Normal 0-0.5 [place] Comment on above: Performed By: #### C MP, MG, HS TROP, A1C WTH eA, LIPID, CBC #### [address] Platelet mean volume (Bld) [Entitic vol] 7.2 fL Normal 6.6-10.1 [place] Comment on above: Performed By: #### C MP, MG, HS TROP, A1C WTH eA, LIPID, CBC #### [facility] [address] Platelets (Bld) [#/Vol] 199 10*3/uL Normal 150-450 [place] Comment on above: Performed By: #### C MP, MG, HS TROP, A1C WTH eA, LIPID, CBC #### [facility] [address] RBC (Bld) [#/Vol] 4.13 10*6/uL Normal 3.90-5.60 [facility] Comment on above: Performed By: #### C MP, MG, HS TROP, A1C WTH eA, LIPID, CBC #### [address] WBC (Bld) [#/Vol] 5.1 10*3/uL Normal 4.1-10.5 [facility] Comment on above: Performed By: #### C MP, MG, HS TROP, A1C WTH eA, LIPID, CBC #### [address] Basophils (Bld) [#/Vol] 0.0 10*3/uL Normal 0.0-0.2 [place] Comment on above: Result Comment: PERF ORMED BY: [place] [address] PATHOLOGIST [employer] JANETTE DE LA FUENTE M.D. Performed By: #### P T, CBC #### [place] [address] [place] Basophils/100 WBC (Bld) 0.6 % Normal . [place] Comment on above: Performed By: #### P T, CBC #### [place] [address] [place] Eosinophils (Bld) [#/Vol] 0.2 10*3/uL Normal 0.0-0.45 [place] Comment on above: Performed By: #### P T, CBC #### [facility] [address] Eosinophils/100 WBC (Bld) 4.6 % Normal . [place] Comment on above: Performed By: #### P T, CBC #### [facility] [address] Erythrocyte distribution width (RBC) [Ratio] 14.9 % High 12.0-14.8 [place] Comment on above: Performed By: #### P T, CBC #### [facility] [address] Hematocrit (Bld) [Volume fraction] 36.2 % Low 38.8-50.0 [place] Comment on above: Performed By: #### P T, CBC #### [facility] [address] Hemoglobin (Bld) [Mass/Vol] 12.4 g/dL Low 13.0-17.0 [place] Comment on above: Performed By: #### P T, CBC #### [facility] [address] Lymphocytes (Bld) [#/Vol] 1.4 10*3/uL Normal 1.00-4.8 [place] Comment on above: Performed By: #### P T, CBC #### [address] Lymphocytes/100 WBC (Bld) 28.1 % Normal . [place] Comment on above: Performed By: #### P T, CBC #### [facility] [address] [place] [address] [place] MCH (RBC) [Entitic mass] 30.3 pg Normal 27.5-35.2 [place] Comment on above: Performed By: #### P T, CBC #### [facility] [address] [place] [address] MCV (RBC) [Entitic vol] 88.5 fL Normal 83.5-101 [place] Comment on above: Performed By: #### P T, CBC #### [facility] [address] Mean Corpuscular HGB Conc 34.2 g/dL Normal 32.5-35.6 [place] Comment on above: Performed By: #### P T, CBC #### [facility] [address] Monocytes (Bld) [#/Vol] 0.6 10*3/uL Normal 0.0-0.8 [place] Comment on above: Performed By: #### P T, CBC #### [place] [address] [place] Monocytes/100 WBC (Bld) 11.6 % Normal . [place] Comment on above: Performed By: #### P T, CBC #### [address] Neutrophils (Bld) [#/Vol] 2.8 10*3/uL Normal 1.8-7.7 [place] Comment on above: Performed By: #### P T, CBC #### [place] [address] [place] Neutrophils/100 WBC (Bld) 55.1 % Normal . [place] Comment on above: Performed By: #### P T, CBC #### [facility] [address] [place] [address] [place] NRBC% 0.1 /100{WBC} Normal 0-0.5 [place] Comment on above: Performed By: #### P T, CBC #### [facility] [address] [place] [address] [place] Platelet mean volume (Bld) [Entitic vol] 7.5 fL Normal 6.6-10.1 [place] Comment on above: Performed By: #### P T, CBC #### [facility] [address] [place] [address] [place] Platelets (Bld) [#/Vol] 201 10*3/uL Normal 150-450 [place] Comment on above: Performed By: #### P T, CBC #### [facility] [address] RBC (Bld) [#/Vol] 4.09 10*6/uL Normal 3.90-5.60 [facility] Comment on above: Performed By: #### P T, CBC #### [facility] [address] WBC (Bld) [#/Vol] 5.1 10*3/uL Normal 4.1-10.5 [facility] Comment on above: Performed By: #### P T, CBC #### [address] Comprehensive Metabolic Pane weston 10-10-2022 Albumin [Mass/Vol] 4.1 g/dL Normal 3.5-5.7 [facility] Comment on above: Performed By: #### C MP, MG, HS TROP, A1C WTH eA, LIPID, CBC #### [address] Albumin/Globulin [Mass ratio] 1.6 {ratio} Normal [place] Comment on above: Performed By: #### C MP, MG, HS TROP, A1C WTH eA, LIPID, CBC #### [address] ALP [Catalytic activity/Vol] 47 U/L Normal 34-104 [place] Comment on above: Performed By: #### C MP, MG, HS TROP, A1C WTH eA, LIPID, CBC #### [address] ALT [Catalytic activity/Vol] 20 U/L Normal 7-52 [place] Comment on above: Performed By: #### C MP, MG, HS TROP, A1C WTH eA, LIPID, CBC #### [address] Anion gap [Moles/Vol] 9.5 mmol/L Normal 6.0-15.0 [facility] Comment on above: Performed By: #### C MP, MG, HS TROP, A1C WTH eA, LIPID, CBC #### [facility] [address] AST [Catalytic activity/Vol] 48 U/L High 13-39 [place] Comment on above: Performed By: #### C MP, MG, HS TROP, A1C WTH eA, LIPID, CBC #### [facility] [address] Bilirubin [Mass/Vol] 0.4 mg/dL Normal 0.3-1.0 [facility] Comment on above: Performed By: #### C MP, MG, HS TROP, A1C WTH eA, LIPID, CBC #### [facility] [address] Calcium [Mass/Vol] 9.1 mg/dL Normal 8.6-10.3 [facility] Comment on above: Performed By: #### C MP, MG, HS TROP, A1C WTH eA, LIPID, CBC #### [facility] [address] Chloride [Moles/Vol] 108 mmol/L High 98-107 [facility] Comment on above: Performed By: #### C MP, MG, HS TROP, A1C WTH eA, LIPID, CBC #### [facility] [address] [place] [address] CO2 [Moles/Vol] 25.6 mmol/L Normal 21.0-31.0 [facility] Comment on above: Performed By: #### C MP, MG, HS TROP, A1C WTH eA, LIPID, CBC #### [facility] [address] Creatinine [Mass/Vol] 1.04 mg/dL Normal 0.70-1.30 [facility] Comment on above: Performed By: #### C MP, MG, HS TROP, A1C WTH eA, LIPID, CBC #### [address] Creatinine Clr Calc Pharmacy 83.69 [facility] Comment on above: Performed By: #### C MP, MG, HS TROP, A1C WTH eA, LIPID, CBC #### [facility] [address] GFR/1.73 sq M.predicted MDRD (S/P/Bld) [Vol rate/Area] mL/min/{1.73_m2} [facility] Comment on above: Performed By: #### C MP, MG, HS TROP, A1C WTH eA, LIPID, CBC #### [address] Globulin (S) [Mass/Vol] 2.6 g/dL [facility] Comment on above: Performed By: #### C MP, MG, HS TROP, A1C WTH eA, LIPID, CBC #### [address] Glucose [Mass/Vol] 102 mg/dL Normal 74-109 [facility] Comment on above: Result Comment: [facility] Glucose Reference Range is dependent on time and content of last meal. Glucose of more than 200 mg/dL in a nonstressed, ambulatory subject supports the diagnosis of Diabetes Mellitus. ADA recommended reference range Performed By: #### C MP, MG, HS TROP, A1C WTH eA, LIPID, CBC #### [address] Potassium [Moles/Vol] 4.1 mmol/L Normal 3.5-5.1 [facility] Comment on above: Performed By: #### C MP, MG, HS TROP, A1C WTH eA, LIPID, CBC #### [address] Protein [Mass/Vol] 6.7 g/dL Normal 6.4-8.9 [facility] Comment on above: Performed By: #### C MP, MG, HS TROP, A1C WTH eA, LIPID, CBC #### [address] Sodium [Moles/Vol] 139 mmol/L Normal 136-145 [facility] Comment on above: Performed By: #### C MP, MG, HS TROP, A1C WTH eA, LIPID, CBC #### [address] [place] [address] [place] Urea nitrogen [Mass/Vol] 18 mg/dL Normal 7-25 [place] Comment on above: Performed By: #### C MP, MG, HS TROP, A1C WTH eA, LIPID, CBC #### [facility] [address] [place] [address] ECG 12 lead ECGon 10-10-2022 ECG 12 lead ECG [facility] [address] Electrocardiograph Report Signed Patient: Hector Gaspar SR MR#: [id number] : 1960 Acct:[id number] Age/Sex: 62 / M ADM Date: 10/10/22 Loc: Room: [address] [place] [address] Type: ADM IN Attending Dr: Barbara Rivero [...] By Edilson Cruz DO 10/11 1132 Normal [place] ECG 12 lead ECG [facility] [address] Electrocardiograph Report Signed Patient: Hector Gaspar SR MR#: [id number] : 1960 Acct:[id number] Age/Sex: 62 / M ADM Date: 10/10/22 Loc: Room: [address] [place] [address] Type: ADM IN Attending Dr: Barbara Rivero [...] Signed By Edilson Cruz DO 10/10 1203 [facility] echo transthoracicon [facility] echo transthoracic [facility] [place] [address] Echocardiogram Signed Patient: Hector Gaspar SR MR#: [id number] : 1960 Acct:[id number] Age/Sex: 62 / M ADM Date: 10/10/22 Loc: Room: [address] [place] [address] Type: ADM IN Attending Dr: Barbara Rivero MD Ordering Provider: Galo Dent MD Date of Service: 10/10/22 [facility] echo transthoracic: NSTMI Copies to: Mohsen Gonsalves MD, [facility] Galo Dent MD Weight: 224 lb [...] By: Mohsen Gonsalves MD, FACC 10/10/22 1406 [facility] LIPASEon 10-10-2022 Lipase [Catalytic activity/Vol] 212.0 U/L Normal 73.0-393.0 [facility] Comment on above: Performed By: #### A MY, CMP, LIPA #### [facility] [address] [address] [address] Carrington Chandler Lipid Panelon 10-10-2022 Cholesterol [Mass/Vol] 235 mg/dL High 140-[address] [facility] Comment on above: Result Comment: Chol less than 200 mg/dl low risk Chol 201-239 mg/dl borderline risk Chol 240 mg/dl and greater high risk Performed By: #### C MP, MG, HS TROP, A1C WTH eA, LIPID, CBC #### [facility] [address] Cholesterol in HDL [Mass/Vol] 48 mg/dL Normal 29-71 [place] Comment on above: Result Comment: HDL CHOL ATP-III CLASSIFICATION Cardiovascular Risk HDL > or equal to 60 mg/dL LOW HDL < 40 mg/dL HIGH Performed By: #### C MP, MG, HS TROP, A1C WTH eA, LIPID, CBC #### [facility] [address] Cholesterol.total/Chol esterol in HDL [Mass ratio] 4.9 {ratio} Normal <5.0 [place] Comment on above: Result Comment: PERF ORMED BY: [place] [address] PATHOLOGIST [employer] INST[employer]ER JANETTE DE LA FUENTE M.D. Performed By: #### C MP, MG, HS TROP, A1C WTH eA, LIPID, CBC #### [facility] [address] LDL Cholesterol,Calculated 164 mg/dL High 0-100 [place] Comment on above: Result Comment: LDL ATP III CLASSIFICATION LDL less than 100 mg/dL Optimal LDL 100-129 mg/dL Near or above optimal LDL 130-159 mg/dL Borderline high LDL 160-189 mg/dL High LDL greater than 189 mg/dL Very high Performed By: #### C MP, MG, HS TROP, A1C WTH eA, LIPID, CBC #### [facility] [address] [id number] [place] Triglyceride w/Reflex 116 mg/dL Normal 0-149 [facility] Comment on above: Result Comment: TRIG ATP III CLASSIFICATION TRIG less than 150 mg/dL Normal TRIG 150-199 mg/dL Borderline high TRIG 200-500 mg/dL High TRIG greater than 500 mg/dL Very high Standard traceable to the Center for Disease Conrtrol and Prevention (CDC) test method. Performed By: #### C MP, MG, HS TROP, A1C WTH eA, LIPID, CBC #### [facility] [address] VLDL CHOLESTEROL 23 mg/dL Normal [facility] Comment on above: Performed By: #### C MP, MG, HS TROP, A1C WTH eA, LIPID, CBC #### [facility] [address] Magnesiumon 10-10-2022 Magnesium [Mass/Vol] 2.0 mg/dL Normal 1.9-2.7 [facility] Comment on above: Performed By: #### C MP, MG, HS TROP, A1C WTH eA, LIPID, CBC #### [facility] [address] PROF 14(COMP METB)on 023 Albumin [Mass/Vol] 3.9 g/dL Normal 3.4-5.[address] [facility] Comment on above: Performed By: #### A MY, CMP, LIPA #### [facility] [address] [address] [address] Carrington Chandler Albumin/Globulin [Mass ratio] 1.2 {ratio} Normal [facility] Comment on above: Performed By: #### A MY, CMP, LIPA #### [facility] [address] [address] [address] Carrington Chandler ALP [Catalytic activity/Vol] 67 U/L Normal 46-116 [facility] Comment on above: Performed By: #### A MY, CMP, LIPA #### [facility] [address] [address] [address] Carrington Chandler ALT [Catalytic activity/Vol] 30 U/L Normal 16-63 [facility] Comment on above: Performed By: #### A MY, CMP, LIPA #### [facility] [address] [address] [address] Carrington Chandler Anion gap [Moles/Vol] 12.8 mmol/L Normal Th e [facility] Comment on above: Performed By: #### A MY, CMP, LIPA #### [facility] [address] [address] [address] Carrington Chandler AST [Catalytic activity/Vol] 58 U/L Critically high 15-37 [facility] Comment on above: Performed By: #### A MY, CMP, LIPA #### [facility] [address] [address] [address] Carrington Chandler Bilirubin [Mass/Vol] 0.3 mg/dL Normal 0.2-1.0 [facility] Comment on above: Performed By: #### A MY, CMP, LIPA #### [facility] [address] [address] [address] Carrington Chandler Calcium [Mass/Vol] 8.9 mg/dL Normal 8.5-10.[address] [facility] Comment on above: Performed By: #### A MY, CMP, LIPA #### [facility] [address] [address] [address] Carrington Chandler Chloride [Moles/Vol] 101 mmol/L Normal 98-107 [facility] Comment on above: Performed By: #### A MY, CMP, LIPA #### [facility] [address] [address] [address] Carrington Chandler CO2 [Moles/Vol] 26.0 mmol/L Normal 21.0-32.0 [facility] Comment on above: Performed By: #### A MY, CMP, LIPA #### [facility] [address] [address] [address] Carrington Chandler Creatinine [Mass/Vol] 0.98 mg/dL Normal 0.70-1.30 [facility] Comment on above: Performed By: #### A MY, CMP, LIPA #### [facility] [address] [address] [address] Carrington Chandler EGFR-AF [place] CITIZ[place] >60 Normal >=60 [facility] Comment on above: Performed By: #### A MY, CMP, LIPA #### [facility] [address] [address] [address] Carrington Chandler EGFR-NON AF [place] CITIZ[place] >60 Normal >=60 [facility] Comment on above: Performed By: #### A MY, CMP, LIPA #### [facility] [address] [address] [address] Carrington Chandler Globulin (S) [Mass/Vol] 3.2 g/dL Normal [facility] Comment on above: Performed By: #### A MY, CMP, LIPA #### [facility] [address] [address] [address] Carrington Chandler Glucose [Mass/Vol] 101 mg/dL Normal 74-106 [facility] Comment on above: Performed By: #### A MY, CMP, LIPA #### [facility] [address] [place] [address] Dr. Carrington Chandler Potassium [Moles/Vol] 3.8 mmol/L Normal 3.5-5.1 [facility] Comment on above: Performed By: #### A MY, CMP, LIPA #### [facility] [address] [address] [address] Carrington Chandler Protein [Mass/Vol] 7.1 g/dL Normal 6.4-8.2 [facility] Comment on above: Performed By: #### A MY, CMP, LIPA #### [facility] [address] [address] [address] Carrington Chandler Sodium [Moles/Vol] 136 mmol/L Normal 136-145 [facility] Comment on above: Performed By: #### A MY, CMP, LIPA #### [facility] [address] [place] [address] Dr. Carrington Chandler Urea nitrogen [Mass/Vol] 19.0 mg/dL Critically high 7.0-18.0 [facility] Comment on above: Performed By: #### A MY, CMP, LIPA #### [facility] [address] [place] [address] Dr. Carrington Chandler Urea nitrogen/Creatinine [Mass ratio] 19.4 mg/mg Normal [facility] Comment on above: Performed By: #### A MY, CMP, LIPA #### [facility] [address] [address] [address] Carrington Chandler PROTIMEon 10-10-2022 INR Coag (PPP) [Relative time] {INR} Normal [facility] Comment on above: Performed By: #### B MP #### [facility] [address] [address] [address] Carrington Chandler INR GUIDELINES SEE BELOW Normal [facility] Comment on above: Result Comment: LYNDON RED INR: 2.0 - 3.0 CONDITIONS NOT LISTED BELOW 2.5 - 3.5 FOR PROSTHETIC HEART VALVE REPLACEMENT 2.5 - 3.5 RECURRENT THROMBOSIS Performed By: #### B MP #### [facility] [address] [address] [address] Carrington Chandler PT Coag (PPP) [Time] 9.7 s Normal 9.0-11.6 [facility] Comment on above: Performed By: #### B MP #### [facility] [address] [address] [address] Carrington Chandler PTTon 10-10-2022 aPTT Coag (Bld) [Time] 29.5 s Normal 22.3-36.2 [facility] Comment on above: Performed By: #### B MP #### [facility] [address] [address] [address] Carrington Chandler Partial Thromboplastin Timeo n 10-10-2022 aPTT Coag (Bld) [Time] 35.9 s Normal 25.1-36.[address] [facility] Comment on above: Result Comment: PERF ORMED BY: [place] [address] PATHOLOGIST [employer]ER JANETTE DE LA FUENTE M.D. Performed By: #### C MP, MG, HS TROP, A1C WTH eA, LIPID, CBC #### [place] [address] [place] Prothrombin Time INRon 10-10 INR Coag (PPP) [Relative time] 0.9 {INR} Normal [place] Comment on above: Result Comment: INR Therapeutic [...] heart valves: 3 - 4.5 PERFORMED BY: [place] [address] PATHOLOGIST [employer] INST[employer]ER JANETTE DE LA FUENTE M.D. Performed By: #### P T, CBC #### [address] PT Coag (PPP) [Time] 10.9 s Normal 9.0-12.9 [facility] Comment on above: Performed By: #### P T, CBC #### [address] Troponin I High Sensitivityo n 10-10-2022 Troponin I High Sensitivity 7787.7 pg/mL Off scale high 0.0-20.0 [place] Comment on above: Order Comment: Comme nt Q 3 hrs Result Comment: Resu lts called at 0817 on 10/10/22 --- 10/10/22 0819 --- Trop HS previously reported as: 7787.7 *H pg/mL PERFORMED BY: [place] [address] PATHOLOGIST [employer] INST[employer]ER JANETTE DE LA FUENTE M.D. Performed By: #### C MP, MG, HS TROP, A1C WTH eA, LIPID, CBC #### [facility] [address] [place], [place] [id number] [facility] XR ABD FLAT UP_PA Jean-Pierre 10-10 [...] by: XIOMARA SCHNEIDER Date: 2022-10-10 00:33 Normal [facility] XR knee RT 3Von 09-09-2022 XR knee RT 3V [facility] [employer] Other XR knee RT 3V [facility] [employer] Other XR knee RT 3V [address] [place] [address] [employer] Other XR knee RT 3V [address] [employer] Other XR knee RT 3V XRay Report [employer] Other XR knee RT 3V Signed [employer] Other XR knee RT 3V Patient: Hector Gaspar MR#: [id number] [place] [employer] Other XR knee RT 3V 187 [employer] Other XR knee RT 3V : 1960 Acct:[id number] [employer] Other XR knee RT 3V Age/Sex: 62 / M ADM Date: 09/09/22 [employer] Other XR knee RT 3V Loc: [facility] Room: Type : [facility] [employer] Other XR knee RT 3V Attending Dr: Wagner Marrufo DO [employer] Other XR knee RT 3V Copies to: Wagner Marrufo, [employer] Other XR knee RT 3V Ordering Provider: Judy Marrufo DO [employer] Other XR knee RT 3V Date of Service: 09/09/22 [employer] Other XR knee RT 3V XR/XR knee RT 3V - NOT FOR ER USE: Acute pain of right knee [employer] Other XR knee RT 3V RIGHT KNEE - 3 views N [employer] Other XR knee RT 3V CLINICAL HISTORY: Generalized right knee pain for 2 weeks. [employer] Other XR knee RT 3V COMPARISON: None [employer] Other XR knee RT 3V FINDINGS: [employer] Other XR knee RT 3V Small knee joint effusion. Mild degenerative changes without acute bony process. Presumed loose [employer] Other XR knee RT 3V body seen anteriorly within the joint space. [employer] Other XR knee RT 3V X R/XR knee RT 3V - NOT FOR ER USE [employer] Other XR knee RT 3V IMPRESSION: [employer] Other XR knee RT 3V MILD DEGENERATIVE CH ANGES WITHOUT ACUTE BONY PROCESS. [employer] Other XR knee RT 3V Impression dictated by: Parrish Layton Jr., D.OEhsan09/09/2022 3:40 PM [employer] Other XR knee RT 3V Dictation Location: [place] [address] [employer] Other XR knee RT 3V Transcribed By: BRONWYN 09/09/22 1540 [employer] Other XR knee RT 3V Dictated By: Parrish Layton Jr, DO 09/09/22 1539 [employer] Other XR knee RT 3V Signed By: [employer] Other XR knee RT 3V 09/09/[address] [facility] [employer] Other XR knee RT 3V - NOT FOR ER U Al 09-09-2022 XR knee RT 3V - NOT FOR ER USE [facility] Main [employer] [address] [place] [address] XRay Report Signed Patient: Hector Gaspar SR MR#: [id number] : 1960 Acct:[id number] Age/Sex: 62 / M ADM Date: 09/09/22 Loc: [facility] Room: Type: [facility] Attending Dr: Wagner Marrufo DO Copies to: [...] PROCESS. Impression dictated by: Parrish Layton Jr., PaulOEhsan09/09/2022 3:40 PM Dictation Location: [place] [address] Transcribed By: [facility] 09/09/22 1540 Dictated By: Parrish Layton Jr, DO 09/09/22 1539 Signed By: 09/09/22 1540 Normal [place] CBC AUTO DIFFon 09-08-2022 BASO # 0.0 103/ul Normal 0.0-0.1 [facility] Comment on above: Performed By: #### C BC #### [facility] [address] [address] [address] Carrington Chandler Basophils/100 WBC (Bld) 0.4 % Normal 0.2-2.0 [facility] Comment on above: Performed By: #### C BC #### [facility] [address] [place] [address] Dr. Carrington Chandler EO # 0.3 103/ul Normal 0.0-0.7 [facility] Comment on above: Performed By: #### C BC #### [facility] [address] [place] [address] Dr. Carrington Chandler Eosinophils/100 WBC (Bld) 4.9 % Normal 0.9-7.0 [facility] Comment on above: Performed By: #### C BC #### [facility] [address] [place] [address] Dr. Carrington Chandler Erythrocyte distribution width (RBC) [Ratio] 14.0 % Normal 11.0-15.0 [facility] Comment on above: Performed By: #### C BC #### [facility] [address] [place] [address] Dr. Carrington Chandler Hematocrit (Bld) [Volume fraction] 36.9 % Critically low 42.0-54.0 [facility] Comment on above: Performed By: #### C BC #### [facility] [address] [place] [address] Dr. Carrington Chandler Hemoglobin (Bld) [Mass/Vol] 12.2 g/dL Critically low 14.0-18.0 [facility] Comment on above: Performed By: #### C BC #### [facility] [address] [place] [address] Dr. Carrington Chandler IG # 0.01 10e3/ul Normal 0.00-0.03 [facility] Comment on above: Performed By: #### C BC #### [facility] [address] [place] [address] Dr. Carrington Chandler IG % 0.2 % Normal 0.0-0.5 [facility] Comment on above: Performed By: #### C BC #### [facility] [address] [place] [address] Dr. Carrington Chandler LYMPH # 1.7 103/ul Normal 1.2-3.8 [facility] Comment on above: Performed By: #### C BC #### [facility] [address] [place] [address] Dr. Carrington Chandler Lymphocytes/100 WBC (Bld) 30.6 % Normal 20.5-60.0 [facility] Comment on above: Performed By: #### C BC #### [facility] [address] [place] [address] Dr. Carrington Chandler MANUAL DIFF REQ NO Normal [facility] Comment on above: Performed By: #### C BC #### [facility] [address] [place] [address] Dr. Carrington Chandler MCH (RBC) [Entitic mass] 30.3 pg Normal 25.9-34.0 [facility] Comment on above: Performed By: #### C BC #### [facility] [address] [place] [address] Dr. Carrington Chandler MCHC (RBC) [Mass/Vol] 33.1 g/dL Normal 29.9-35.2 [facility] Comment on above: Performed By: #### C BC #### [facility] [address] [place] [address] Dr. Carrington Chandler MCV (RBC) [Entitic vol] 91.6 fL Normal 80.0-94.0 [facility] Comment on above: Performed By: #### C BC #### [facility] [address] [place] [address] Dr. Carrington Chandler MONO # 0.6 103/ul Normal 0.3-0.8 [facility] Comment on above: Performed By: #### C BC #### [facility] [address] [place] [address] Dr. Carrington Chandler Monocytes/100 WBC (Bld) 9.9 % Normal 1.7-12.0 [facility] Comment on above: Performed By: #### C BC #### [facility] [address] [place] [address] Dr. Carrington Chandler NEUT # 3.0 103/ul Normal 1.4-6.5 [facility] Comment on above: Performed By: #### C BC #### [facility] [address] [place] [address] Dr. Carrington Chandler Neutrophils/100 WBC (Bld) 54.0 % Normal 43.0-75.0 [facility] Comment on above: Performed By: #### C BC #### [facility] [address] [address] [address] Carrington Chandler Platelet mean volume (Bld) [Entitic vol] 8.9 fL Critically low 9.5-13.5 [facility] Comment on above: Performed By: #### C BC #### [facility] [address] [address] [address] Carrington Chandler PLT 189 103/ul Normal 150-450 [facility] Comment on above: Performed By: #### C BC #### [facility] [address] [address] [address] aCrrington Chandler RBC 4.03 106/ul Critically low 4.70-6.10 [facility] Comment on above: Performed By: #### C BC #### [facility] [address] [address] [address] Carrington Chandler WBC 5.5 103/ul Normal 4.0-11.0 [facility] Comment on above: Performed By: #### C BC #### [facility] [address] [address] [address] Carrington Chandler CRPon 09-08-2022 CRP 0.5 mg/dL Normal <=1.0 [facility] Comment on above: Performed By: #### A MY, CMP, LIPA #### [facility] [address] [address] [address] Carrington Chandler PROF CHEM 8 (BAS METB)on Anion gap [Moles/Vol] 12.7 mmol/L Normal [facility] Comment on above: Performed By: #### A MY, CMP, LIPA #### [facility] [address] [place] [address] Dr. Carrington Chandler Calcium [Mass/Vol] 8.6 mg/dL Normal 8.5-10.[address] [facility] Comment on above: Performed By: #### A MY, CMP, LIPA #### [facility] [address] [address] [address] Carrington Chandler Chloride [Moles/Vol] 102 mmol/L Normal 98-107 [facility] Comment on above: Performed By: #### A MY, CMP, LIPA #### [facility] [address] [address] [address] Carrington Chandler CO2 [Moles/Vol] 27.2 mmol/L Normal 21.0-32.0 [facility] Comment on above: Performed By: #### A MY, CMP, LIPA #### [facility] [address] [address] [address] Carrington Chandler Creatinine [Mass/Vol] 1.11 mg/dL Normal 0.70-1.30 [facility] Comment on above: Performed By: #### A MY, CMP, LIPA #### [facility] [address] [address] [address] Carrington Chandler EGFR-AF [place]IZ[place] >60 Normal >=60 [facility] Comment on above: Performed By: #### A MY, CMP, LIPA #### [facility] [address] [address] [address] Carrington Chandler EGFR-NON AF [place] >60 Normal >=60 [facility] Comment on above: Performed By: #### A MY, CMP, LIPA #### [facility] [address] [address] [address] Carrington Chandler Glucose [Mass/Vol] 132 mg/dL Critically high 74-106 [facility] Comment on above: Performed By: #### A MY, CMP, LIPA #### [facility] [address] [address] [address] Carrington Chandler Potassium [Moles/Vol] 3.9 mmol/L Normal 3.5-5.1 [facility] Comment on above: Performed By: #### A MY, CMP, LIPA #### [facility] [address] [address] [address] Carrington Chandler Sodium [Moles/Vol] 138 mmol/L Normal 136-[address] [facility] Comment on above: Performed By: #### A MY, CMP, LIPA #### [facility] [address] [address] [address] Carrington Chandler Urea nitrogen [Mass/Vol] 18.0 mg/dL Normal 7.0-18.0 [facility] Comment on above: Performed By: #### A MY, CMP, LIPA #### [facility] [address] [address] [address] Carrington Chandler Urea nitrogen/Creatinine [Mass ratio] 16.2 mg/mg Normal [facility] Comment on above: Performed By: #### A MY, CMP, LIPA #### [facility] [address] [address] [address] Carrington Chandler US CARRINGTON DOP LEG RTon 09-08-19 US CARRINGTON DOP LEG RT EXAM: US [...] CYNTHIA VASQUEZ Date: 2022-09-07 22:52 Normal [facility] HEMOGLOBINon 08-10-2022 Hemoglobin (Bld) [Mass/Vol] 13.3 g/dL Critically low 14.0-18.0 [facility] Comment on above: Performed By: #### B MP #### [facility] [address] [address] [address] Carrington Chandler CBC W MANUAL DIFFon 07-11-20 22 ATYPICAL LYMPH # 0.65 103/ul Normal [facility] Comment on above: Performed By: #### A MY, CMP, LIPA #### [facility] [address] [address] [address] Carrington Chandler ATYPICAL LYMPH % 11 % Normal [facility] Comment on above: Performed By: #### A MY, CMP, LIPA #### [facility] [address] [address] [address] Carrington Chandler BAND # 0.0 103/ul Normal 0.0-0.3 [facility] Comment on above: Performed By: #### A MY, CMP, LIPA #### [facility] [address] [address] [address] Carrington Chandler BAND % 0 % Normal 0-5 [facility] Comment on above: Performed By: #### A MY, CMP, LIPA #### [facility] [address] [place] [address] Dr. Carrington Chandler BASOM # 0.00 103/ul Normal 0.00-0.10 [facility] Comment on above: Performed By: #### A MY, CMP, LIPA #### [facility] [address] [place] [address] Dr. Carrington Chandler BASOM % 0.0 % Critically low 0.2-2.0 [facility] Comment on above: Performed By: #### A MY, CMP, LIPA #### [facility] [address] [address] [address] Carrington Chandler BLAST # Normal [facility] Comment on above: Performed By: #### A MY, CMP, LIPA #### [facility] [address] [place] [address] Dr. Carrington Chandler BLAST % Normal [facility] Comment on above: Performed By: #### A MY, CMP, LIPA #### [facility] [address] [place] [address] Dr. Carrington Chandler CORRECTED WBC Normal 4.0-11.0 [facility] Comment on above: Performed By: #### A MY, CMP, LIPA #### [facility] [address] [place] [address] Dr. Carrington Chandler EOS # 0.00 103/ul Normal 0.00-0.70 [facility] Comment on above: Performed By: #### A MY, CMP, LIPA #### [facility] [address] [address] [address] Carrington Chandler EOS% 0.0 % Critically low 0.9-7.0 [facility] Comment on above: Performed By: #### A MY, CMP, LIPA #### [facility] [address] [address] [address] Carrington Chandler HCT 34.7 % Critically low 42.0-54.0 [facility] Comment on above: Performed By: #### A MY, CMP, LIPA #### [facility] [address] [place] [address] Dr. Carrington Chandler HGB 11.7 g/dl Critically low 14.0-18.0 [facility] Comment on above: Performed By: #### A MY, CMP, LIPA #### [facility] [address] [place] [address] Dr. Carrington Chandler LYMPHM # 0.12 103/ul Critically low 1.20-3.80 [facility] Comment on above: Performed By: #### A MY, CMP, LIPA #### [facility] [address] [place] [address] Dr. Carrington Chandler LYMPHM% 2.0 % Critically low 20.5-60.0 [facility] Comment on above: Performed By: #### A MY, CMP, LIPA #### [facility] [address] [address] [address] Carrington Chandler MCH 29.9 pg Normal 25.9-34.0 [facility] Comment on above: Performed By: #### A MY, CMP, LIPA #### [facility] [address] [place] [address] Dr. Carrington Chandler MCHC 33.7 g/dl Normal 29.9-35.2 [facility] Comment on above: Performed By: #### A MY, CMP, LIPA #### [facility] [address] [address] [address] Carrington Chandler MCV 88.7 fL Normal 80.0-94.0 [facility] Comment on above: Performed By: #### A MY, CMP, LIPA #### [facility] [address] [address] [address] Carrington Chandler METAMYELOCYTE # Normal [facility] Comment on above: Performed By: #### A MY, CMP, LIPA #### [facility] [address] [place] [address] Dr. Carrington Chandler METAMYELOCYTE % Normal [facility] Comment on above: Performed By: #### A MY, CMP, LIPA #### [facility] [address] [place] [address] Dr. Carrington Chandler MONOM# 0.00 103/ul Critically low 0.30-0.80 [facility] Comment on above: Performed By: #### A MY, CMP, LIPA #### [facility] [address] [place] [address] Dr. Carrington Chandler MONOM% 0.0 % Critically low 1.7-12.0 [facility] Comment on above: Performed By: #### A MY, CMP, LIPA #### [facility] [address] [place] [address] Dr. Carrington Chandler MPV 9.4 fL Critically low 9.5-13.5 [facility] Comment on above: Performed By: #### A MY, CMP, LIPA #### [facility] [address] [place] [address] Dr. Carrington Chandler MYELOCYTE # Normal [facility] Comment on above: Performed By: #### A MY, CMP, LIPA #### [facility] [address] [place] [address] Dr. Carrington Chandler MYELOCYTE % Normal [facility] Comment on above: Performed By: #### A MY, CMP, LIPA #### [facility] [address] [place] [address] Dr. Carrington Chandler NRBC Normal [facility] Comment on above: Performed By: #### A MY, CMP, LIPA #### [facility] [address] [address] [address] Carrington Chandler PLT 160 103/ul Normal 150-450 [facility] Comment on above: Performed By: #### A MY, CMP, LIPA #### [facility] [address] [address] [address] Carrington Chandler RBC 3.91 106/ul Critically low 4.70-6.10 [facility] Comment on above: Performed By: #### A MY, CMP, LIPA #### [facility] [address] [address] [address] Carrington Chandler RDW 12.4 % Normal 11.0-15.0 [facility] Comment on above: Performed By: #### A MY, CMP, LIPA #### [facility] [address] [place] [address] Dr. Carrington Chandler SEG # 5.13 103/ul Normal 1.40-6.50 [facility] Comment on above: Performed By: #### A MY, CMP, LIPA #### [facility] [address] [address] [address] Carrington Chandler SEG % 87.0 % Critically high 43.0-75.0 [facility] Comment on above: Performed By: #### A MY, CMP, LIPA #### [facility] [address] [address] [address] Carrington Chandler WBC 5.9 103/ul Normal 4.0-11.0 [facility] Comment on above: Performed By: #### A MY, CMP, LIPA #### [facility] [address] [address] [address] Carrington Chandler PROF 14(COMP METB)on 022 Albumin [Mass/Vol] 3.0 g/dL Critically low 3.4-5.0 [facility] Comment on above: Performed By: #### C MP #### [facility] [address] [place] [address] Dr. Carrington Chandler Albumin/Globulin [Mass ratio] 0.9 {ratio} Normal [facility] Comment on above: Performed By: #### C MP #### [facility] [address] [address] [address] Carrington Chandler ALP [Catalytic activity/Vol] 56 U/L Normal 46-116 [facility] Comment on above: Performed By: #### C MP #### [facility] [address] [address] [address] Carrington Chandler ALT [Catalytic activity/Vol] 21 U/L Normal 16-63 [facility] Comment on above: Performed By: #### C MP #### [facility] [address] [address] [address] Carrington Chandler Anion gap [Moles/Vol] 12.9 mmol/L Normal [facility] Comment on above: Performed By: #### C MP #### [facility] [address] [place] [address] Dr. Carrington Chandler AST [Catalytic activity/Vol] 15 U/L Normal 15-37 [facility] Comment on above: Performed By: #### C MP #### [facility] [address] [address] [address] Carrington Chandler Bilirubin [Mass/Vol] 0.2 mg/dL Normal 0.2-1.0 [facility] Comment on above: Performed By: #### C MP #### [facility] [address] [address] [address] Carrington Chandler Calcium [Mass/Vol] 8.1 mg/dL Critically low 8.5-10.1 [facility] Comment on above: Performed By: #### C MP #### [facility] [address] [address] [address] Carrington Chandler Chloride [Moles/Vol] 104 mmol/L Normal 98-107 [facility] Comment on above: Performed By: #### C MP #### [facility] [address] [address] [address] Carrington Chandler CO2 [Moles/Vol] 24.6 mmol/L Normal 21.0-32.0 [facility] Comment on above: Performed By: #### C MP #### [facility] [address] [address] [address] Carrington Chandler Creatinine [Mass/Vol] 0.88 mg/dL Normal 0.70-1.30 [facility] Comment on above: Performed By: #### C MP #### [facility] [address] [address] [address] Carrington Chandler EGFR-AF [place]IZ[place] >60 Normal >=60 [facility] Comment on above: Performed By: #### C MP #### [facility] [address] [address] [address] Carrington Chandler EGFR-NON AF [place]IZ[place] >60 Normal >=60 [facility] Comment on above: Performed By: #### C MP #### [facility] [address] [place] [address] Dr. Carrington Chandler Globulin (S) [Mass/Vol] 3.3 g/dL Normal [facility] Comment on above: Performed By: #### C MP #### [facility] [address] [place] [address] Dr. Carrington Chandler Glucose [Mass/Vol] 174 mg/dL Critically high 74-106 [facility] Comment on above: Performed By: #### C MP #### [facility] [address] [place] [address] Dr. Carrington Chandler Potassium [Moles/Vol] 3.5 mmol/L Normal 3.5-5.1 [facility] Comment on above: Performed By: #### C MP #### [facility] [address] [place] [address] Dr. Carrington Chandler Protein [Mass/Vol] 6.3 g/dL Critically low 6.4-8.2 Th [facility] Comment on above: Performed By: #### C MP #### [facility] [address] [place] [address] Dr. Carrington Chandler Sodium [Moles/Vol] 138 mmol/L Normal 136-[address] [facility] Comment on above: Performed By: #### C MP #### [facility] [address] [address] [address] Carrington Chandler Urea nitrogen [Mass/Vol] 17.0 mg/dL Normal 7.0-18.0 [facility] Comment on above: Performed By: #### C MP #### [facility] [address] [place] [address] Dr. Carrington Chandler Urea nitrogen/Creatinine [Mass ratio] 19.3 mg/mg Normal [facility] Comment on above: Performed By: #### C MP #### [facility] [address] [place] [address] Dr. Carrington Chandler CBC AUTO DIFFon 07-10-2022 BASO # 0.0 103/ul Normal 0.0-0.1 [facility] Comment on above: Performed By: #### B MP #### [facility] [address] [place] [address] Dr. Carrington Chandler Basophils/100 WBC (Bld) 0.2 % Normal 0.2-2.0 [facility] Comment on above: Performed By: #### B MP #### [facility] [address] [place] [address] Dr. Carrington Chandler EO # 0.1 103/ul Normal 0.0-0.7 [facility] Comment on above: Performed By: #### B MP #### [facility] [address] [place] [address] Dr. Carrington Chandler Eosinophils/100 WBC (Bld) 2.3 % Normal 0.9-7.0 [facility] Comment on above: Performed By: #### B MP #### [facility] [address] [place] [address] Dr. Carrington Chandler Erythrocyte distribution width (RBC) [Ratio] 12.5 % Normal 11.0-15.0 [facility] Comment on above: Performed By: #### B MP #### [facility] [address] [place] [address] Dr. Carrington Chandler Hematocrit (Bld) [Volume fraction] 36.8 % Critically low 42.0-54.0 [facility] Comment on above: Performed By: #### B MP #### [facility] [address] [place] [address] Dr. Carrington Chandler Hemoglobin (Bld) [Mass/Vol] 12.3 g/dL Critically low 14.0-18.0 [facility] Comment on above: Performed By: #### B MP #### [facility] [address] [place] [address] Dr. Carrington Chandler IG # 0.01 10e3/ul Normal 0.00-0.03 [facility] Comment on above: Performed By: #### B MP #### [facility] [address] [place] [address] Dr. Carrington Chandler IG % 0.2 % Normal 0.0-0.5 [facility] Comment on above: Performed By: #### B MP #### [facility] [address] [place] [address] Dr. Carrington Chandler LYMPH # 1.5 103/ul Normal 1.2-3.8 The [facility] Comment on above: Performed By: #### B MP #### [facility] [address] [place] [address] Dr. Carrington Chandler Lymphocytes/100 WBC (Bld) 34.7 % Normal 20.5-60.0 [facility] Comment on above: Performed By: #### B MP #### [facility] [address] [place] [address] Dr. Carrington Chandler MANUAL DIFF REQ NO Normal [facility] Comment on above: Performed By: #### B MP #### [facility] [address] [place] [address] Dr. Carrington Chandler MCH (RBC) [Entitic mass] 29.8 pg Normal 25.9-34.0 [facility] Comment on above: Performed By: #### B MP #### [facility] [address] [place] [address] Dr. Carrington Chandler MCHC (RBC) [Mass/Vol] 33.4 g/dL Normal 29.9-35.2 [facility] Comment on above: Performed By: #### B MP #### [facility] [address] [place] [address] Dr. Carrington Chandler MCV (RBC) [Entitic vol] 89.1 fL Normal 80.0-94.0 [facility] Comment on above: Performed By: #### B MP #### [facility] [address] [place] [address] Dr. Carrington Chandler MONO # 0.5 103/ul Normal 0.3-0.8 The [facility] Comment on above: Performed By: #### B MP #### [facility] [address] [address] [address] Carrington Chandler Monocytes/100 WBC (Bld) 11.0 % Normal 1.7-12.0 [facility] Comment on above: Performed By: #### B MP #### [facility] [address] [place] [address] Dr. Carrington Chandler NEUT # 2.2 103/ul Normal 1.4-6.5 [facility] Comment on above: Performed By: #### B MP #### [facility] [address] [place] [address] Dr. Carrington Chandler Neutrophils/100 WBC (Bld) 51.6 % Normal 43.0-75.0 [facility] Comment on above: Performed By: #### B MP #### [facility] [address] [place] [address] Dr. Carrington Chandler Platelet mean volume (Bld) [Entitic vol] 9.0 fL Critically low 9.5-13.5 [facility] Comment on above: Performed By: #### B MP #### [facility] [address] [place] [address] Dr. Carrington Chandler PLT 147 103/ul Critically low 150-450 [facility] Comment on above: Performed By: #### B MP #### [facility] [address] [place] [address] Dr. Carrington Chandler RBC 4.13 106/ul Critically low 4.70-6.10 [facility] Comment on above: Performed By: #### B MP #### [facility] [address] [place] [address] Dr. Carrington Chandler WBC 4.4 103/ul Normal 4.0-11.0 [facility] Comment on above: Performed By: #### B MP #### [facility] [address] [place] [address] Dr. Carrington Chandler CULTURE SPUTUMon 07-10-2022 CULTURE SPUTUM Culture Observations : NORMAL RESPIRATORY SANDY. Normal [facility] Comment on above: Performed By: #### C MP #### [facility] [address] [place] [address] Dr. Carrington Chandler MAGNESIUMon 07-10-2022 Magnesium [Mass/Vol] 2.0 mg/dL Normal 1.8-2.4 [facility] Comment on above: Performed By: #### C MP #### [facility] [address] [place] [address] Dr. Carrington Chandler PROF 14(COMP METB)on 022 Albumin [Mass/Vol] 2.8 g/dL Critically low 3.4-5.0 [facility] Comment on above: Performed By: #### B MP #### [facility] [address] [place] [address] Dr. Carrington Chandler Albumin/Globulin [Mass ratio] 0.8 {ratio} Normal [facility] Comment on above: Performed By: #### B MP #### [facility] [address] [place] [address] Dr. Carrington Chandler ALP [Catalytic activity/Vol] 55 U/L Normal 46-116 [facility] Comment on above: Performed By: #### B MP #### [facility] [address] [place] [address] Dr. Carrington Chandler ALT [Catalytic activity/Vol] 22 U/L Normal 16-63 [facility] Comment on above: Performed By: #### B MP #### [facility] [address] [place] [address] Dr. Carrington Chandler Anion gap [Moles/Vol] 10.3 mmol/L Normal [facility] Comment on above: Performed By: #### B MP #### [facility] [address] [place] [address] Dr. Carrington Chandler AST [Catalytic activity/Vol] 22 U/L Normal 15-37 [facility] Comment on above: Performed By: #### B MP #### [facility] [address] [place] [address] Dr. Carrington Chandler Bilirubin [Mass/Vol] 0.2 mg/dL Normal 0.2-1.0 [facility] Comment on above: Performed By: #### B MP #### [facility] [address] [place] [address] Dr. Carrington Chandler Calcium [Mass/Vol] 8.0 mg/dL Critically low 8.5-10.1 [facility] Comment on above: Performed By: #### B MP #### [facility] [address] [place] [address] Dr. Carrington Chandler Chloride [Moles/Vol] 105 mmol/L Normal 98-107 [facility] Comment on above: Performed By: #### B MP #### [facility] [address] [place] [address] Dr. Carrington Chandler CO2 [Moles/Vol] 28.1 mmol/L Normal 21.0-32.0 [facility] Comment on above: Performed By: #### B MP #### [facility] [address] [place] [address] Dr. Carrington Chandler Creatinine [Mass/Vol] 0.89 mg/dL Normal 0.70-1.30 [facility] Comment on above: Performed By: #### B MP #### [facility] [address] [place] [address] Dr. Carrington Chandler EGFR-AF [place] >60 Normal >=60 [facility] Comment on above: Performed By: #### B MP #### [facility] [address] [place] [address] Dr. Carrington Chandler EGFR-NON AF [place] >60 Normal >=60 [facility] Comment on above: Performed By: #### B MP #### [facility] [address] [place] [address] Dr. Carrington Chandler Globulin (S) [Mass/Vol] 3.7 g/dL Normal [facility] Comment on above: Performed By: #### B MP #### [facility] [address] [address] [address] Carrington Chandler Glucose [Mass/Vol] 124 mg/dL Critically high 74-106 [facility] Comment on above: Performed By: #### B MP #### [facility] [address] [address] [address] Carrington Chandler Potassium [Moles/Vol] 3.4 mmol/L Critically low 3.5-5.1 [facility] Comment on above: Performed By: #### B MP #### [facility] [address] [address] [address] Carrington Chandler Protein [Mass/Vol] 6.5 g/dL Normal 6.4-8.[address] [facility] Comment on above: Performed By: #### B MP #### [facility] [address] [address] [address] Carrington Chandler Sodium [Moles/Vol] 140 mmol/L Normal 136-[address] [facility] Comment on above: Performed By: #### B MP #### [facility] [address] [address] [address] Carrington Chandler Urea nitrogen [Mass/Vol] 15.0 mg/dL Normal 7.0-18.0 [facility] Comment on above: Performed By: #### B MP #### [facility] [address] [address] [address] Carrington Chandler Urea nitrogen/Creatinine [Mass ratio] 16.9 mg/mg Normal [facility] Comment on above: Performed By: #### B MP #### [facility] [address] [address] [address] Carrington Chandler CBC AUTO DIFFon 07-09-2022 BASO # 0.0 103/ul Normal 0.0-0.1 [facility] Comment on above: Performed By: #### A MY, CMP, LIPA #### [facility] [address] [address] [address] Carrington Chandler Basophils/100 WBC (Bld) 0.2 % Normal 0.2-2.0 [facility] Comment on above: Performed By: #### A MY, CMP, LIPA #### [facility] [address] [place] [address] Dr. Carrington Chandler EO # 0.1 103/ul Normal 0.0-0.7 [facility] Comment on above: Performed By: #### A MY, CMP, LIPA #### [facility] [address] [place] [address] Dr. Carrington Chandler Eosinophils/100 WBC (Bld) 1.9 % Normal 0.9-7.0 [facility] Comment on above: Performed By: #### A MY, CMP, LIPA #### [facility] [address] [place] [address] Dr. Carrington Chandler Erythrocyte distribution width (RBC) [Ratio] 12.6 % Normal 11.0-15.0 [facility] Comment on above: Performed By: #### A MY, CMP, LIPA #### [facility] [address] [place] [address] Dr. Carrington Chandler Hematocrit (Bld) [Volume fraction] 38.8 % Critically low 42.0-54.0 [facility] Comment on above: Performed By: #### A MY, CMP, LIPA #### [facility] [address] [place] [address] Dr. Carrington Chandler Hemoglobin (Bld) [Mass/Vol] 12.9 g/dL Critically low 14.0-18.0 [facility] Comment on above: Performed By: #### A MY, CMP, LIPA #### [facility] [address] [place] [address] Dr. Carrington Chandler IG # 0.01 10e3/ul Normal 0.00-0.03 [facility] Comment on above: Performed By: #### A MY, CMP, LIPA #### [facility] [address] [place] [address] Dr. Carrington Chandler IG % 0.2 % Normal 0.0-0.5 [facility] Comment on above: Performed By: #### A MY, CMP, LIPA #### [facility] [address] [address] [address] Carrington Chandler LYMPH # 1.7 103/ul Normal 1.2-3.8 [facility] Comment on above: Performed By: #### A MY, CMP, LIPA #### [facility] [address] [address] [address] Carrington Chandler Lymphocytes/100 WBC (Bld) 34.7 % Normal 20.5-60.0 [facility] Comment on above: Performed By: #### A MY, CMP, LIPA #### [facility] [address] [address] [address] Carrington Chandler MANUAL DIFF REQ NO Normal [facility] Comment on above: Performed By: #### A MY, CMP, LIPA #### [facility] [address] [place] [address] Dr. Carrington Chandler MCH (RBC) [Entitic mass] 29.9 pg Normal 25.9-34.0 [facility] Comment on above: Performed By: #### A MY, CMP, LIPA #### [facility] [address] [place] [address] Dr. Carrington Chandler MCHC (RBC) [Mass/Vol] 33.2 g/dL Normal 29.9-35.2 [facility] Comment on above: Performed By: #### A MY, CMP, LIPA #### [facility] [address] [place] [address] Dr. Carrington Chandler MCV (RBC) [Entitic vol] 90.0 fL Normal 80.0-94.0 [facility] Comment on above: Performed By: #### A MY, CMP, LIPA #### [facility] [address] [address] [address] Carrington Chandler MONO # 0.5 103/ul Normal 0.3-0.8 [facility] Comment on above: Performed By: #### A MY, CMP, LIPA #### [facility] [address] [place] [address] Dr. Carrington Chandler Monocytes/100 WBC (Bld) 10.4 % Normal 1.7-12.0 [facility] Comment on above: Performed By: #### A MY, CMP, LIPA #### [facility] [address] [address] [address] Carrington Chandler NEUT # 2.5 103/ul Normal 1.4-6.5 [facility] Comment on above: Performed By: #### A MY, CMP, LIPA #### [facility] [address] [place] [address] Dr. Carrington Chandler Neutrophils/100 WBC (Bld) 52.6 % Normal 43.0-75.0 [facility] Comment on above: Performed By: #### A MY, CMP, LIPA #### [facility] [address] [place] [address] Dr. Carrington Chandler Platelet mean volume (Bld) [Entitic vol] 9.0 fL Critically low 9.5-13.5 [facility] Comment on above: Performed By: #### A MY, CMP, LIPA #### [facility] [address] [place] [address] Dr. Carrington Chandler PLT 155 103/ul Normal 150-450 [facility] Comment on above: Performed By: #### A MY, CMP, LIPA #### [facility] [address] [place] [address] Dr. Carrington Chandler RBC 4.31 106/ul Critically low 4.70-6.10 [facility] Comment on above: Performed By: #### A MY, CMP, LIPA #### [facility] [address] [place] [address] Dr. Carrington Chandler WBC 4.8 103/ul Normal 4.0-11.0 [facility] Comment on above: Performed By: #### A MY, CMP, LIPA #### [facility] [address] [place] [address] Dr. Carrington Chandler Covid-19 PCR ([facility])on 06-25 SARS-CoV-2 (COVID-19) RNA CHARLIE+probe Ql (Unsp spec) Not detected Normal NOT DETECTED The [facility] Comment on above: Result Comment: When diagnostic [...] for this test is supported by the [place] of [employer] Service's declaration that [...] used). Performed By: #### C MP #### [facility] [address] [place] [address] Dr. Carrington Chanlder ER URINE PROFILEon 2 Bilirubin Ql (U) Negative Normal NEGATIVE [facility] Comment on above: Performed By: #### C MP #### [facility] [address] [place] [address] Dr. Carrington Chandler Clarity (U) CLEAR Normal CLEAR [facility] Comment on above: Performed By: #### C MP #### [facility] [address] [place] [address] Dr. Carrington Chandler Color (U) LT. YELLOW Normal YELLOW [facility] Comment on above: Performed By: #### C MP #### [facility] [address] [place] [address] Dr. Carrington Chandler ERUAHD A micrscopic examina tion will be performed if indicated. Normal [facility] Comment on above: Performed By: #### C MP #### [facility] [address] [place] [address] Dr. Carrington Chandler Glucose Ql (U) Negative Normal NEGATIVE [facility] Comment on above: Performed By: #### C MP #### [facility] [address] [place] [address] Dr. Carrington Chandler Hemoglobin Ql (U) Negative Normal NEGATIVE [facility] Comment on above: Performed By: #### C MP #### [facility] [address] [address] [address] Carrington Chandler Ketones Ql (U) Negative Normal NEGATIVE [facility] Comment on above: Performed By: #### C MP #### [facility] [address] [address] [address] Carrington Chandler LEUKOCYTES Negative Normal NEGATIVE [facility] Comment on above: Performed By: #### C MP #### [facility] [address] [place] [address] Dr. Carrington Chandler Nitrite Ql (U) Negative Normal NEGATIVE [facility] Comment on above: Performed By: #### C MP #### [facility] [address] [place] [address] Dr. Carrington Chandler pH (U) 6.0 [pH] Normal 5-9 [facility] Comment on above: Performed By: #### C MP #### [facility] [address] [address] [address] Carrington Chandler SPEC GRAVITY 1.010 Normal 1.005-<=1. 025 [facility] Comment on above: Performed By: #### C MP #### [facility] [address] [address] [address] Carrington Chandler UA PROTEIN Negative Normal NEGATIVE/ TRACE [facility] Comment on above: Performed By: #### C MP #### [facility] [address] [place] [address] Dr. Carrington Chandler UR MICRO IND NOT INDICATED Normal [facility] Comment on above: Performed By: #### C MP #### [facility] [address] [place] [address] Dr. Carrington Chandler Urobilinogen Qn (U) 0.2 {Lars'U}/dL Normal 0.2 - 1. 0 [facility] Comment on above: Performed By: #### C MP #### [facility] [address] [place] [address] Dr. Carrington Chandler PROF CHEM 8 (BAS METB)on 12- 15-2022 Anion gap [Moles/Vol] 6.6 mmol/L Normal [facility] Comment on above: Performed By: #### B MP #### [facility] [address] [place] [address] Dr. Carrington Chandler Calcium [Mass/Vol] 8.2 mg/dL Critically low 8.5-10.1 Th e [facility] Comment on above: Performed By: #### B MP #### [facility] [address] [place] [address] Dr. Carrington Chandler Chloride [Moles/Vol] 102 mmol/L Normal 98-107 [facility] Comment on above: Performed By: #### B MP #### [facility] [address] [place] [address] Dr. Carrington Chandler CO2 [Moles/Vol] 31.2 mmol/L Normal 21.0-32.0 [facility] Comment on above: Performed By: #### B MP #### [facility] [address] [place] [address] Dr. Carrington Chandler Creatinine [Mass/Vol] 0.90 mg/dL Normal 0.70-1.30 [facility] Comment on above: Performed By: #### B MP #### [facility] [address] [place] [address] Dr. Carrington Chandler EGFR-AF [place]IZ[place] >60 Normal >=60 [facility] Comment on above: Performed By: #### B MP #### [facility] [address] [place] [address] Dr. Carrington Chandler EGFR-NON AF [place] CITIZ[place] >60 Normal >=60 [facility] Comment on above: Performed By: #### B MP #### [facility] [address] [place] [address] Dr. Carrington Chandler Glucose [Mass/Vol] 100 mg/dL Normal 74-[address] [facility] Comment on above: Performed By: #### B MP #### [facility] [address] [place] [address] Dr. Carrington Chandler Potassium [Moles/Vol] 3.8 mmol/L Normal 3.5-5.1 [facility] Comment on above: Performed By: #### B MP #### [facility] [address] [address] [address] Carrington Chandler Sodium [Moles/Vol] 136 mmol/L Normal 136-[address] [facility] Comment on above: Performed By: #### B MP #### [facility] [address] [address] [address] Carrington Chandler Urea nitrogen [Mass/Vol] 16.0 mg/dL Normal 7.0-18.0 [facility] Comment on above: Performed By: #### B MP #### [facility] [address] [address] [address] Carrington Chandler Urea nitrogen/Creatinine [Mass ratio] 17.8 mg/mg Normal [facility] Comment on above: Performed By: #### B MP #### [facility] [address] [place] [address] Dr. Carrington Cahndler XR CHEST 1 Von 07-09-2022 XR CHEST [...] TEE LEWIS Date: 2022-07-09 20:51 Normal [facility] AMYLASEon 07-08-2022 Amylase [Catalytic activity/Vol] 40 U/L Normal 25-115 [facility] Comment on above: Performed By: #### A MY, CMP, LIPA #### [facility] [address] [place] [address] Dr. Carrington Chandler CBC AUTO DIFFon 07-08-2022 BASO # 0.0 103/ul Normal 0.0-0.1 [facility] Comment on above: Performed By: #### C BC #### [facility] [address] [place] [address] Dr. Carrington Chandler Basophils/100 WBC (Bld) 0.3 % Normal 0.2-2.0 [facility] Comment on above: Performed By: #### C BC #### [facility] [address] [place] [address] Dr. Carrington Chandler EO # 0.1 103/ul Normal 0.0-0.7 [facility] Comment on above: Performed By: #### C BC #### [facility] [address] [place] [address] Dr. Carrington Chandler Eosinophils/100 WBC (Bld) 1.2 % Normal 0.9-7.0 [facility] Comment on above: Performed By: #### C BC #### [facility] [address] [place] [address] Dr. Carrington Chandler Erythrocyte distribution width (RBC) [Ratio] 12.9 % Normal 11.0-15.0 [facility] Comment on above: Performed By: #### C BC #### [facility] [address] [place] [address] Dr. Carrington Chandler Hematocrit (Bld) [Volume fraction] 43.2 % Normal 42.0-54.0 [facility] Comment on above: Performed By: #### C BC #### [facility] [address] [place] [address] Dr. Carrington Chandler Hemoglobin (Bld) [Mass/Vol] 14.4 g/dL Normal 14.0-18.0 [facility] Comment on above: Performed By: #### C BC #### [facility] [address] [place] [address] Dr. Carrington Chandler IG # 0.02 10e3/ul Normal 0.00-0.03 [facility] Comment on above: Performed By: #### C BC #### [facility] [address] [place] [address] Dr. Carrington Chandler IG % 0.3 % Normal 0.0-0.5 [facility] Comment on above: Performed By: #### C BC #### [facility] [address] [place] [address] Dr. Carrington Chandler LYMPH # 1.6 103/ul Normal 1.2-3.8 [facility] Comment on above: Performed By: #### C BC #### [facility] [address] [place] [address] Dr. Carrington Chandler Lymphocytes/100 WBC (Bld) 24.0 % Normal 20.5-60.0 [facility] Comment on above: Performed By: #### C BC #### [facility] [address] [place] [address] Dr. Carrington Chandler MANUAL DIFF REQ NO Normal [facility] Comment on above: Performed By: #### C BC #### [facility] [address] [place] [address] Dr. Carrington Chandler MCH (RBC) [Entitic mass] 30.2 pg Normal 25.9-34.0 [facility] Comment on above: Performed By: #### C BC #### [facility] [address] [place] [address] Dr. Carrington Chandler MCHC (RBC) [Mass/Vol] 33.3 g/dL Normal 29.9-35.2 [facility] Comment on above: Performed By: #### C BC #### [facility] [address] [place] [address] Dr. Carrington Chandler MCV (RBC) [Entitic vol] 90.6 fL Normal 80.0-94.0 [facility] Comment on above: Performed By: #### C BC #### [facility] [address] [place] [address] Dr. Carrington Chandler MONO # 0.6 103/ul Normal 0.3-0.8 [facility] Comment on above: Performed By: #### C BC #### [facility] [address] [place] [address] Dr. Carrington Chandler Monocytes/100 WBC (Bld) 9.4 % Normal 1.7-12.0 [facility] Comment on above: Performed By: #### C BC #### [facility] [address] [place] [address] Dr. Carrington Chandler NEUT # 4.4 103/ul Normal 1.4-6.5 [facility] Comment on above: Performed By: #### C BC #### [facility] [address] [place] [address] Dr. Carrington Chandler Neutrophils/100 WBC (Bld) 64.8 % Normal 43.0-75.0 [facility] Comment on above: Performed By: #### C BC #### [facility] [address] [place] [address] Dr. Carrington Chandler Platelet mean volume (Bld) [Entitic vol] 9.5 fL Normal 9.5-13.5 [facility] Comment on above: Performed By: #### C BC #### [facility] [address] [place] [address] Dr. Carrington Chandler PLT 174 103/ul Normal 150-450 [facility] Comment on above: Performed By: #### C BC #### [facility] [address] [place] [address] Dr. Carrington Chandler RBC 4.77 106/ul Normal 4.70-6.10 [facility] Comment on above: Performed By: #### C BC #### [facility] [address] [place] [address] Dr. Carrington Chandler WBC 6.7 103/ul Normal 4.0-11.0 [facility] Comment on above: Performed By: #### C BC #### [facility] [address] [place] [address] Dr. Carrington Chandler [facility]on [facility]-25 SARS-CoV-2 (COVID-19) RNA CHARLIE+probe Ql (Unsp spec) Not detected Normal NOT DETECTED [facility] Comment on above: Result Comment: When diagnostic [...] for this test is supported by the Telemarketing Agent of Health and Human Service's declaration that [...] used). Performed By: #### B MP #### [facility] [address] [place] [address] Dr. Carrington Chandler INFLUENZA A AND B AGon 07-08 INFLUANEGH SEE BELOW Normal [facility] Comment on above: Result Comment: Nega tive for Flu A protein angiten. Infection due to Flu A cannot be ruled out. Flu A angiten in the sample may be below the detection limit of the test. Performed By: #### B MP #### [facility] [address] [place] [address] Dr. Carrington Chandler INFLUBNEGH SEE BELOW Normal [facility] Comment on above: Result Comment: Nega tive for Flu B protein antigen. Infection due to Flu B cannot be ruled out. Flu B antigen in the sample may be below the detection limit of the test. Performed By: #### B MP #### [facility] [address] [place] [address] Dr. Carrington Chandler INFLUENZA A AG Negative Normal NEGATIVE SEE COMMENT [facility] Comment on above: Performed By: #### B MP #### [facility] [address] [place] [address] Dr. Carrington Chandler INFLUENZA B AG Negative Normal NEGATIVE SEE COMMENT [facility] Comment on above: Performed By: #### B MP #### [facility] [address] [place] [address] Dr. Carrington Chandler INTERNAL CONTROLS Within Normal Limits Normal Wi thin Normal Limits [facility] Comment on above: Performed By: #### B MP #### [facility] [address] [place] [address] Dr. Carrington Chandler LIPASEon 07-08-2022 Lipase [Catalytic activity/Vol] 195.0 U/L Normal 73.0-393.0 [facility] Comment on above: Performed By: #### A MY, CMP, LIPA #### [facility] [address] [address] [address] Carrington Chandler PROF 14(COMP METB)on 022 Albumin [Mass/Vol] 3.4 g/dL Normal 3.4-5.[address] [facility] Comment on above: Performed By: #### A MY, CMP, LIPA #### [facility] [address] [address] [address] Carrington Chandler Albumin/Globulin [Mass ratio] 0.8 {ratio} Normal [facility] Comment on above: Performed By: #### A MY, CMP, LIPA #### [facility] [address] [address] [address] Carrington Chandler ALP [Catalytic activity/Vol] 61 U/L Normal 46-116 [facility] Comment on above: Performed By: #### A MY, CMP, LIPA #### [facility] [address] [address] [address] Carrington Chandler ALT [Catalytic activity/Vol] 26 U/L Normal 16-63 [facility] Comment on above: Performed By: #### A MY, CMP, LIPA #### [facility] [address] [address] [address] Carrington Chandler Anion gap [Moles/Vol] 11.0 mmol/L Normal [facility] Comment on above: Performed By: #### A MY, CMP, LIPA #### [facility] [address] [address] [address] Carrington Chandler AST [Catalytic activity/Vol] 30 U/L Normal 15-37 [facility] Comment on above: Performed By: #### A MY, CMP, LIPA #### [facility] [address] [address] [address] Carrington Chandler Bilirubin [Mass/Vol] 0.3 mg/dL Normal 0.2-1.0 [facility] Comment on above: Performed By: #### A MY, CMP, LIPA #### [facility] [address] [address] [address] Carrington Chandler Calcium [Mass/Vol] 8.4 mg/dL Critically low 8.5-10.1 Th e [facility] Comment on above: Performed By: #### A MY, CMP, LIPA #### [facility] [address] [place] [address] Dr. Carrington Chandler Chloride [Moles/Vol] 102 mmol/L Normal 98-107 [facility] Comment on above: Performed By: #### A MY, CMP, LIPA #### [facility] [address] [place] [address] Dr. Carrington Chandler CO2 [Moles/Vol] 28.1 mmol/L Normal 21.0-32.0 [facility] Comment on above: Performed By: #### A MY, CMP, LIPA #### [facility] [address] [place] [address] Dr. Carrington Chandler Creatinine [Mass/Vol] 0.99 mg/dL Normal 0.70-1.30 [facility] Comment on above: Performed By: #### A MY, CMP, LIPA #### [facility] [address] [place] [address] Dr. Carrington Chandler EGFR-AF [place]IZ[place] >60 Normal >=60 [facility] Comment on above: Performed By: #### A MY, CMP, LIPA #### [facility] [address] [place] [address] Dr. Carrington Chandler EGFR-NON AF [place] >60 Normal >=60 [facility] Comment on above: Performed By: #### A MY, CMP, LIPA #### [facility] [address] [place] [address] Dr. Carrington Chandler Globulin (S) [Mass/Vol] 4.3 g/dL Normal [facility] Comment on above: Performed By: #### A MY, CMP, LIPA #### [facility] [address] [place] [address] Dr. Carrington Chandler Glucose [Mass/Vol] 107 mg/dL Critically high 74-106 [facility] Comment on above: Performed By: #### A MY, CMP, LIPA #### [facility] [address] [place] [address] Dr. Carrington Chandler Potassium [Moles/Vol] 4.1 mmol/L Normal 3.5-5.1 [facility] Comment on above: Performed By: #### A MY, CMP, LIPA #### [facility] [address] [place] [address] Dr. Carrington Chandler Protein [Mass/Vol] 7.7 g/dL Normal 6.4-8.2 [facility] Comment on above: Performed By: #### A MY, CMP, LIPA #### [facility] [address] [place] [address] Dr. Carrington Chandler Sodium [Moles/Vol] 137 mmol/L Normal 136-145 [facility] Comment on above: Performed By: #### A MY, CMP, LIPA #### [facility] [address] [place] [address] Dr. Carrington Chandler Urea nitrogen [Mass/Vol] 23.0 mg/dL Critically high 7.0-18.0 [facility] Comment on above: Performed By: #### A MY, CMP, LIPA #### [facility] [address] [place] [address] Dr. Carrington Chandler Urea nitrogen/Creatinine [Mass ratio] 23.2 mg/mg Normal [facility] Comment on above: Performed By: #### A MY, CMP, LIPA #### [facility] [address] [place] [address] Dr. Carrington Chandler CBC AUTO DIFFon 07-03-2022 BASO # 0.0 103/ul Normal 0.0-0.1 [facility] Comment on above: Performed By: #### C MP #### [facility] [address] [place] [address] Dr. Carrington Chandler Basophils/100 WBC (Bld) 0.5 % Normal 0.2-2.0 [facility] Comment on above: Performed By: #### C MP #### [facility] [address] [place] [address] Dr. Carrington Chandler EO # 0.3 103/ul Normal 0.0-0.7 [facility] Comment on above: Performed By: #### C MP #### [facility] [address] [place] [address] Dr. Carrington Chandler Eosinophils/100 WBC (Bld) 4.7 % Normal 0.9-7.0 [facility] Comment on above: Performed By: #### C MP #### [facility] [address] [place] [address] Dr. Carrington Chandler Erythrocyte distribution width (RBC) [Ratio] 12.7 % Normal 11.0-15.0 [facility] Comment on above: Performed By: #### C MP #### [facility] [address] [place] [address] Dr. Carrington Chandler Hematocrit (Bld) [Volume fraction] 38.8 % Critically low 42.0-54.0 [facility] Comment on above: Performed By: #### C MP #### [facility] [address] [place] [address] Dr. Carrington Chandler Hemoglobin (Bld) [Mass/Vol] 13.2 g/dL Critically low 14.0-18.0 [facility] Comment on above: Performed By: #### C MP #### [facility] [address] [place] [address] Dr. Carrington Chandler IG # 0.01 10e3/ul Normal 0.00-0.03 [facility] Comment on above: Performed By: #### C MP #### [facility] [address] [place] [address] Dr. Carrington Chandler IG % 0.2 % Normal 0.0-0.5 [facility] Comment on above: Performed By: #### C MP #### [facility] [address] [place] [address] Dr. Carrington Chandler LYMPH # 1.4 103/ul Normal 1.2-3.8 [facility] Comment on above: Performed By: #### C MP #### [facility] [address] [place] [address] Dr. Carrington Chandler Lymphocytes/100 WBC (Bld) 25.2 % Normal 20.5-60.0 [facility] Comment on above: Performed By: #### C MP #### [facility] [address] [place] [address] Dr. Carrington Chandler MANUAL DIFF REQ NO Normal [facility] Comment on above: Performed By: #### C MP #### [facility] [address] [place] [address] Dr. Carrington Chandler MCH (RBC) [Entitic mass] 30.3 pg Normal 25.9-34.0 [facility] Comment on above: Performed By: #### C MP #### [facility] [address] [place] [address] Dr. Carrington Chandler MCHC (RBC) [Mass/Vol] 34.0 g/dL Normal 29.9-35.2 [facility] Comment on above: Performed By: #### C MP #### [facility] [address] [place] [address] Dr. Carrington Chandler MCV (RBC) [Entitic vol] 89.2 fL Normal 80.0-94.0 [facility] Comment on above: Performed By: #### C MP #### [facility] [address] [place] [address] Dr. Carrington Chandler MONO # 0.6 103/ul Normal 0.3-0.8 [facility] Comment on above: Performed By: #### C MP #### [facility] [address] [place] [address] Dr. Carrington Chandler Monocytes/100 WBC (Bld) 10.2 % Normal 1.7-12.0 [facility] Comment on above: Performed By: #### C MP #### [facility] [address] [place] [address] Dr. Carrington Chandler NEUT # 3.3 103/ul Normal 1.4-6.5 [facility] Comment on above: Performed By: #### C MP #### [facility] [address] [place] [address] Dr. Carrington Chandler Neutrophils/100 WBC (Bld) 59.2 % Normal 43.0-75.0 [facility] Comment on above: Performed By: #### C MP #### [facility] [address] [address] [address] Carrington Chandler Platelet mean volume (Bld) [Entitic vol] 9.1 fL Critically low 9.5-13.5 [facility] Comment on above: Performed By: #### C MP #### [facility] [address] [address] [address] Carrington Chandler PLT 199 103/ul Normal 150-450 [facility] Comment on above: Performed By: #### C MP #### [facility] [address] [address] [address] Carrington Chandler RBC 4.35 106/ul Critically low 4.70-6.10 [facility] Comment on above: Performed By: #### C MP #### [facility] [address] [address] [address] Carrington Chandler WBC 5.5 103/ul Normal 4.0-11.0 [facility] Comment on above: Performed By: #### C MP #### [facility] [address] [address] [address] Carrington Chandler [facility]on SARS-CoV-2 (COVID-19) RNA CHARLIE+probe Ql (Unsp spec) Not detected Normal NOT DETECTED [facility] Comment on above: Result Comment: When diagnostic [...] for this test is supported by the Telemarketing Agent of Health and Human Service's declaration that [...] used). Performed By: #### B MP #### [facility] [address] [place] [address] Dr. Carrington Chandler PROF 14(COMP METB)on 022 Albumin [Mass/Vol] 3.8 g/dL Normal 3.4-5.[address] [facility] Comment on above: Performed By: #### C MP #### [facility] [address] [place] [address] Dr. Carrington Chandler Albumin/Globulin [Mass ratio] 1.0 {ratio} Normal [facility] Comment on above: Performed By: #### C MP #### [facility] [address] [place] [address] Dr. Carrington Chandler ALP [Catalytic activity/Vol] 69 U/L Normal 46-116 [facility] Comment on above: Performed By: #### C MP #### [facility] [address] [place] [address] Dr. Carrington Chandler ALT [Catalytic activity/Vol] 18 U/L Normal 16-63 [facility] Comment on above: Performed By: #### C MP #### [facility] [address] [place] [address] Dr. Carrington Chandler Anion gap [Moles/Vol] 13.3 mmol/L Normal [facility] Comment on above: Performed By: #### C MP #### [facility] [address] [place] [address] Dr. Carrington Chandler AST [Catalytic activity/Vol] 19 U/L Normal 15-37 [facility] Comment on above: Performed By: #### C MP #### [facility] [address] [place] [address] Dr. Carrington Chandler Bilirubin [Mass/Vol] 0.3 mg/dL Normal 0.2-1.0 [facility] Comment on above: Performed By: #### C MP #### [facility] [address] [place] [address] Dr. Carrington Chandler Calcium [Mass/Vol] 9.0 mg/dL Normal 8.5-10.[address] [facility] Comment on above: Performed By: #### C MP #### [facility] [address] [address] [address] Carrington Chandler Chloride [Moles/Vol] 101 mmol/L Normal 98-107 The [facility] Comment on above: Performed By: #### C MP #### [facility] [address] [address] [address] Carrington Chandler CO2 [Moles/Vol] 26.7 mmol/L Normal 21.0-32.0 [facility] Comment on above: Performed By: #### C MP #### [facility] [address] [place] [address] Dr. Carrington Chandler Creatinine [Mass/Vol] 1.06 mg/dL Normal 0.70-1.30 The [facility] Comment on above: Performed By: #### C MP #### [facility] [address] [place] [address] Dr. Carrington Chandler EGFR-AF [place] CITIZ[place] >60 Normal >=60 [facility] Comment on above: Performed By: #### C MP #### [facility] [address] [place] [address] Dr. Carrington Chandler EGFR-NON AF [place] CITIZ[place] >60 Normal >=60 [facility] Comment on above: Performed By: #### C MP #### [facility] [address] [place] [address] Dr. Carrington Chandler Globulin (S) [Mass/Vol] 3.8 g/dL Normal [facility] Comment on above: Performed By: #### C MP #### [facility] [address] [place] [address] Dr. Carrington Chandler Glucose [Mass/Vol] 98 mg/dL Normal 74-106 [facility] Comment on above: Performed By: #### C MP #### [facility] [address] [place] [address] Dr. Carrington Chandler Potassium [Moles/Vol] 4.0 mmol/L Normal 3.5-5.1 [facility] Comment on above: Performed By: #### C MP #### [facility] [address] [place] [address] Dr. Carrington Chandler Protein [Mass/Vol] 7.6 g/dL Normal 6.4-8.2 [facility] Comment on above: Performed By: #### C MP #### [facility] [address] [address] [address] Carrington Chandler Sodium [Moles/Vol] 137 mmol/L Normal 136-[address] [facility] Comment on above: Performed By: #### C MP #### [facility] [address] [address] [address] Carrington Chandler Urea nitrogen [Mass/Vol] 21.0 mg/dL Critically high 7.0-18.0 [facility] Comment on above: Performed By: #### C MP #### [facility] [address] [address] [address] Carrington Chandler Urea nitrogen/Creatinine [Mass ratio] 19.8 mg/mg Normal [facility] Comment on above: Performed By: #### C MP #### [facility] [address] [address] [address] Carrington Chandler XR CHEST 1 Von [...] CYNTHIA VASQUEZ Date: 2022-07-03 21:16 Normal The [facility] CBC AUTO DIFFon 02-03-2022 BASO # 0.0 103/ul Normal 0.0-0.1 [facility] Comment on above: Performed By: #### C BC #### [facility] [address] [place] [address] Dr. Carrington Chandler Basophils/100 WBC (Bld) 0.3 % Normal 0.2-2.0 [facility] Comment on above: Performed By: #### C BC #### [facility] [address] [place] [address] Dr. Carrington Chandler EO # 0.1 103/ul Normal 0.0-0.7 The [facility] Comment on above: Performed By: #### C BC #### [facility] [address] [place] [address] Dr. Carrington Chandler Eosinophils/100 WBC (Bld) 0.9 % Normal 0.9-7.0 [facility] Comment on above: Performed By: #### C BC #### [facility] [address] [place] [address] Dr. Carrington Chandler Erythrocyte distribution width (RBC) [Ratio] 13.9 % Normal 11.0-15.0 [facility] Comment on above: Performed By: #### C BC #### [facility] [address] [place] [address] Dr. Carrington Chandler Hematocrit (Bld) [Volume fraction] 40.4 % Critically low 42.0-54.0 [facility] Comment on above: Performed By: #### C BC #### [facility] [address] [place] [address] Dr. Carrington Chandler Hemoglobin (Bld) [Mass/Vol] 13.4 g/dL Critically low 14.0-18.0 [facility] Comment on above: Performed By: #### C BC #### [facility] [address] [place] [address] Dr. Carrington Chandler IG # 0.03 10e3/ul Normal 0.00-0.03 [facility] Comment on above: Performed By: #### C BC #### [facility] [address] [place] [address] Dr. Carrington Chandler IG % 0.3 % Normal 0.0-0.5 [facility] Comment on above: Performed By: #### C BC #### [facility] [address] [address] [address] Carrington Chandler LYMPH # 1.5 103/ul Normal 1.2-3.8 The [facility] Comment on above: Performed By: #### C BC #### [facility] [address] [address] [address] Carrington Chandler Lymphocytes/100 WBC (Bld) 12.3 % Critically low 20.5-60.0 [facility] Comment on above: Performed By: #### C BC #### [facility] [address] [place] [address] Dr. Carrington Chandler MANUAL DIFF REQ NO Normal [facility] Comment on above: Performed By: #### C BC #### [facility] [address] [place] [address] Dr. Carrington Chandler MCH (RBC) [Entitic mass] 30.0 pg Normal 25.9-34.0 [facility] Comment on above: Performed By: #### C BC #### [facility] [address] [place] [address] Dr. Carrington Chandler MCHC (RBC) [Mass/Vol] 33.2 g/dL Normal 29.9-35.2 The [facility] Comment on above: Performed By: #### C BC #### [facility] [address] [place] [address] Dr. Carrington Chandler MCV (RBC) [Entitic vol] 90.6 fL Normal 80.0-94.0 The [facility] Comment on above: Performed By: #### C BC #### [facility] [address] [place] [address] Dr. Carrington Chandler MONO # 1.0 103/ul Critically high 0.3-0.8 [facility] Comment on above: Performed By: #### C BC #### [facility] [address] [place] [address] Dr. Carrington Chandler Monocytes/100 WBC (Bld) 8.5 % Normal 1.7-12.0 [facility] Comment on above: Performed By: #### C BC #### [facility] [address] [place] [address] Dr. Carrington Chandler NEUT # 9.2 103/ul Critically high 1.4-6.5 [facility] Comment on above: Performed By: #### C BC #### [facility] [address] [place] [address] Dr. Carrington Chandler Neutrophils/100 WBC (Bld) 77.7 % Critically high 43.0-75.0 The [facility] Comment on above: Performed By: #### C BC #### [facility] [address] [place] [address] Dr. Carrington Chandler Platelet mean volume (Bld) [Entitic vol] 9.5 fL Normal 9.5-13.5 The [facility] Comment on above: Performed By: #### C BC #### [facility] [address] [place] [address] Dr. Carrington Chandler PLT 204 103/ul Normal 150-450 [facility] Comment on above: Performed By: #### C BC #### [facility] [address] [place] [address] Dr. Carrington Chandler RBC 4.46 106/ul Critically low 4.70-6.10 [facility] Comment on above: Performed By: #### C BC #### [facility] [address] [place], [place] [id number] Dr. Carrington Chandler WBC 11.9 103/ul Critically high 4.0-11.0 [facility] Comment on above: Performed By: #### C BC #### [facility] [address] [place] [address] Dr. Carrington Chandler [facility] SARS-CoV-2 (COVID-19) RNA CHARLIE+probe Ql (Unsp spec) Not detected Normal NOT DETECTED The [facility] Comment on above: Result Comment: When diagnostic [...] for this test is supported by the Telemarketing Agent of Health and Human Service's declaration that [...] longer be used). Performed By: #### C VDTB #### [facility] [address] [place] [address] Dr. Carrington Chandler PROF 14(COMP METB)on 022 Albumin [Mass/Vol] 3.7 g/dL Normal 3.4-5.[address] [facility] Comment on above: Performed By: #### C MP #### [facility] [address] [place] [address] Dr. Carrington Chandler Albumin/Globulin [Mass ratio] 0.9 {ratio} Normal [facility] Comment on above: Performed By: #### C MP #### [facility] [address] [place] [address] Dr. Carrington Chandler ALP [Catalytic activity/Vol] 62 U/L Normal 46-116 [facility] Comment on above: Performed By: #### C MP #### [facility] [address] [place] [address] Dr. Carrington Chandler ALT [Catalytic activity/Vol] 21 U/L Normal 16-63 [facility] Comment on above: Performed By: #### C MP #### [facility] [address] [place] [address] Dr. Carrington Chandler Anion gap [Moles/Vol] 12.3 mmol/L Normal [facility] Comment on above: Performed By: #### C MP #### [facility] [address] [place] [address] Dr. Carrington Chandler AST [Catalytic activity/Vol] 13 U/L Critically low 15-37 [facility] Comment on above: Performed By: #### C MP #### [facility] [address] [address] [address] Carrington Chandler Bilirubin [Mass/Vol] 0.5 mg/dL Normal 0.2-1.0 [facility] Comment on above: Performed By: #### C MP #### [facility] [address] [address] [address] Carrington Chandler Calcium [Mass/Vol] 9.1 mg/dL Normal 8.5-10.[address] [facility] Comment on above: Performed By: #### C MP #### [facility] [address] [address] [address] Carrington Chandler Chloride [Moles/Vol] 102 mmol/L Normal 98-107 [facility] Comment on above: Performed By: #### C MP #### [facility] [address] [place] [address] Dr. Carrington Chandler CO2 [Moles/Vol] 24.9 mmol/L Normal 21.0-32.0 [facility] Comment on above: Performed By: #### C MP #### [facility] [address] [address] [address] Carrington Chandler Creatinine [Mass/Vol] 1.36 mg/dL Critically high 0.70-1.30 [facility] Comment on above: Performed By: #### C MP #### [facility] [address] [address] [address] Carrington Chandler EGFR-AF [place] >60 Normal >=60 [facility] Comment on above: Performed By: #### C MP #### [facility] [address] [address] [address] Carrington Chandler EGFR-NON AF [place] 53 mL/min/1.73m2 Critically low >=60 [facility] Comment on above: Performed By: #### C MP #### [facility] [address] [address] [address] Carrington Chandler Globulin (S) [Mass/Vol] 3.9 g/dL Normal [facility] Comment on above: Performed By: #### C MP #### [facility] [address] [address] [address] Carrington Chandler Glucose [Mass/Vol] 138 mg/dL Critically high 74-106 [facility] Comment on above: Performed By: #### C MP #### [facility] [address] [address] [address] Carrington Chandler Potassium [Moles/Vol] 4.2 mmol/L Normal 3.5-5.1 [facility] Comment on above: Performed By: #### C MP #### [facility] [address] [address] [address] Carrington Chandler Protein [Mass/Vol] 7.6 g/dL Normal 6.4-8.[address] [facility] Comment on above: Performed By: #### C MP #### [facility] [address] [address] [address] Carrington Chandler Sodium [Moles/Vol] 135 mmol/L Critically low 136-145 [facility] Comment on above: Performed By: #### C MP #### [facility] [address] [address] [address] Carrington Chandler Urea nitrogen [Mass/Vol] 24.0 mg/dL Critically high 7.0-18.0 [facility] Comment on above: Performed By: #### C MP #### [facility] [address] [address] [address] Carrington Chandler Urea nitrogen/Creatinine [Mass ratio] 17.6 mg/mg Normal [facility] Comment on above: Performed By: #### C MP #### [facility] [address] [address] [address] Carrington Chandler XR CHEST 1 Von [...] by: DAREK MARX Date: 2022-02-03 02:09 Normal [facility] Vital Signs Date Time Vital Sign Value Performing Clinician Facility 06-24-2023 11:00-0500 Body height 171.45 cm Brock Modi Other [facility] Other 06-24-2023 11:00-0500 Body mass index (BMI) [Ratio] 34.56 kg/m2 Brock Modi Other [facility] Other 06-24-2023 11:00-0500 Body temperature 98.1 [degF] Brock Modi Other [facility] Other 06-24-2023 11:00-0500 Body weight 101.61 kg Brock Modi Other [facility] Other 06-24-2023 11:00-0500 Diastolic blood pressure 67 mm[Hg] Brock Modi Other [facility] Other 06-24-2023 11:00-0500 SaO2% (BldA) [Mass fraction] 95 % Brock Modi Other [facility] Other 06-24-2023 11:00-0500 Systolic blood pressure 109 mm[Hg] Brock Modi Other [facility] Other 03-16-2023 11:30-0400 Body height 171.45 cm Brock Modi Other [facility] Other 03-16-2023 11:30-0400 Body mass index (BMI) [Ratio] 33.48 kg/m2 Brock Modi Other [facility] Other 03-16-2023 11:30-0400 Body weight 98.43 kg Brock Modi Other [facility] Other 03-16-2023 11:30-0400 Diastolic blood pressure 67 mm[Hg] Brock Modi Other [facility] Other 03-16-2023 11:30-0400 SaO2% (BldA) [Mass fraction] 93 % Brock Modi Other [facility] Other 03-16-2023 11:30-0400 Systolic blood pressure 114 mm[Hg] Brock Modi Other [facility] Other 02-04-2023 13:30-0400 Body height 171.45 cm Brock Modi Other [facility] Other 02-04-2023 13:30-0400 Body mass index (BMI) [Ratio] 33.64 kg/m2 Brock Modi Other [facility] Other 02-04-2023 13:30-0400 Body weight 98.88 kg Brock Modi Other [facility] Other 02-04-2023 13:30-0400 Diastolic blood pressure 67 mm[Hg] Brock Modi Other [facility] Other 02-04-2023 13:30-0400 SaO2% (BldA) [Mass fraction] 96 % Brock Modi Other [facility] Other 02-04-2023 13:30-0400 Systolic blood pressure 117 mm[Hg] Brock Modi Other [facility] Other 12-24-2022 14:08-0400 Body height 167.64 cm Brock Modi Work Phone: [facility] [address] DO Work Phone: 12-24-2022 14:08-0400 Body mass index (BMI) [Ratio] 35.02 kg/m2 Brock Modi [facility] DO Work Phone: 12-24-2022 14:08-0400 Body surface area Derived from formula 2.07 m2 Brock Modi Work Phone: [facility] 250 DO Work Phone: 12-24-2022 14:08-0400 Body weight 98.43 kg Brock Modi Work Phone: [facility] 250 DO Work Phone: 12-24-2022 14:08-0400 Diastolic blood pressure 80 mm[Hg] Brock Modi Work Phone: [facility] 250 DO Work Phone: 12-24-2022 14:08-0400 Heart rate 115 /min Brock Modi Work Phone: [facility] 250 DO Work Phone: 12-24-2022 14:08-0400 Systolic blood pressure 124 mm[Hg] Brock Modi Work Phone: [facility] 250 DO Work Phone: 11-27-2022 11:00-0400 Body height 171.45 cm Wagner Marrufo Other [facility] Other 11-27-2022 11:00-0400 Body mass index (BMI) [Ratio] 33.48 kg/m2 Wagner Marrufo Other [facility] Other 11-27-2022 11:00-0400 Body weight 98.43 kg Wagner Marrufo Other [facility] Other 11-12-2022 12:45-0400 Body height 171.45 cm Brock Modi Other [facility] Other 11-12-2022 12:45-0400 Body mass index (BMI) [Ratio] 33.48 kg/m2 Brock Modi Other [facility] Other 11-12-2022 12:45-0400 Body weight 98.43 kg Brock Modi Other [facility] Other 11-12-2022 12:45-0400 Diastolic blood pressure 78 mm[Hg] Brock Modi Other [facility] Other 11-12-2022 12:45-0400 SaO2% (BldA) [Mass fraction] 92 % Brock Modi Other [facility] Other 11-12-2022 12:45-0400 Systolic blood pressure 122 mm[Hg] Brock Modi Other [facility] Other 10-21-2022 15:18-0400 Body height 167.64 cm Brock Modi Work Phone: [facility] DO Work Phone: 10-21-2022 15:18-0400 Body mass index (BMI) [Ratio] 35.51 kg/m2 Brock Modi Work Phone: [facility] 250 DO Work Phone: 10-21-2022 15:18-0400 Body surface area Derived from formula 2.08 m2 Brock Modi Work Phone: [facility] [employer] 250 DO Work Phone: 10-21-2022 15:18-0400 Body weight 99.79 kg Brock Modi Work Phone: [facility] [employer] 250 DO Work Phone: 10-21-2022 15:18-0400 Diastolic blood pressure 70 mm[Hg] Brock Modi Work Phone: [facility] [employer] 250 DO Work Phone: 10-21-2022 15:18-0400 Heart rate 84 /min Brock Modi Work Phone: [facility] [employer] 250 DO Work Phone: 10-21-2022 15:18-0400 Systolic blood pressure 126 mm[Hg] Brock Modi Work Phone: [facility] [employer] 250 DO Work Phone: 10-15-2022 11:15-0400 Body height 171.45 cm Brock Modi Other [facility] Other 10-15-2022 11:15-0400 Body mass index (BMI) [Ratio] 33.33 kg/m2 Brock Modi Other [facility] Other 10-15-2022 11:15-0400 Body weight 97.98 kg Brock Modi Other [facility] Other 10-15-2022 11:15-0400 Diastolic blood pressure 84 mm[Hg] Brock Modi Other [facility] Other 10-15-2022 11:15-0400 SaO2% (BldA) [Mass fraction] 94 % Brock Modi Other [facility] Other 10-15-2022 11:15-0400 Systolic blood pressure 122 mm[Hg] Brock Modi Other [facility] Other 10-13-2022 11:57-0400 Body temperature 97.4 [degF] MD Brock Modi Work Phone: [place] 10-13-2022 11:57-0400 Diastolic blood pressure 85 mm[Hg] MD Brock Modi Work Phone: [place] 10-13-2022 11:57-0400 Heart rate 107 /min MD Brock Modi Work Phone: [place] 10-13-2022 11:57-0400 Inhaled oxygen flow rate 2 L/min MD Brock Modi Work Phone: [place] 10-13-2022 11:57-0400 Respiratory rate 17 /min MD Brock Modi Work Phone: [place] 10-13-2022 11:57-0400 SaO2% (BldA) [Mass fraction] 97 % MD Brcok Modi Work Phone: [place] 10-13-2022 11:57-0400 Systolic blood pressure 125 mm[Hg] MD Brock Modi Work Phone: [place] 10-13-2022 04:32-0400 Body weight 97.52 kg MD Brock Modi Work Phone: [place] 10-10-2022 08:46-0400 65 1 Brock Modi Work Phone: [facility] 250 DO Work Phone: Comment on above: [id number] 10-10-2022 04:57-0400 Body height 170.18 cm MD Brock Modi Work Phone: [place] 09-09-2022 14:30-0500 Body height 171.45 cm Wagner Marrufo Other [facility] Other 09-09-2022 14:30-0500 Body mass index (BMI) [Ratio] 34.41 kg/m2 Wagner Marrufo Other [facility] Other 09-09-2022 14:30-0500 Body weight 101.15 kg Wagner Marrufo Other [facility] Other 08-13-2022 12:15-0500 Body height 171.45 cm Brock Modi Other [facility] Other 08-13-2022 12:15-0500 Body mass index (BMI) [Ratio] 34.38 kg/m2 Brock Modi Other [facility] Other 08-13-2022 12:15-0500 Body weight 101.06 kg Brock Modi Other [facility] Other 08-13-2022 12:15-0500 Diastolic blood pressure 84 mm[Hg] Brock Modi Other [facility] Other 08-13-2022 12:15-0500 SaO2% (BldA) [Mass fraction] 97 % Brock Modi Other [facility] Other 08-13-2022 12:15-0500 Systolic blood pressure 132 mm[Hg] Brock Modi Other [facility] Other 07-30-2022 12:30-0500 Body height 171.45 cm Brock Modi Other [facility] Other 07-30-2022 12:30-0500 Body mass index (BMI) [Ratio] 32.71 kg/m2 Brock Modi Other [facility] Other 07-30-2022 12:30-0500 Body weight 96.16 kg Brock Ly Other [facility] Other 07-30-2022 12:30-0500 Diastolic blood pressure 80 mm[Hg] Brock Ly Other [facility] Other 07-30-2022 12:30-0500 SaO2% (BldA) [Mass fraction] 97 % Brock Ly Other [facility] Other 07-30-2022 12:30-0500 Systolic blood pressure 122 mm[Hg] Brock Ly Other [facility] Other Encounters Encounter Date Encounter Type Care Provider Facility Start: 07-16-2023 End: 07-16-2023 ambulatory Brock Modi Other [facility] Other Start: 07-16-2023 Telephone encounter Brock Modi [facility] Start: 06-24-2023 End: 06-24-2023 ambulatory Brock Modi Other [facility] Other Start: 06-24-2023 Office outpatient vi sit 15 minutes Brock Modi [facility] Start: 04-07-[address] Alok Webber Facility: Start: 04-02-2023 End: 04-02-2023 ambulatory Brock Modi Other [facility] Other Start: 04-02-2023 Telephone encounter Brock Modi [facility] Start: 03-19-2023 End: 03-19-2023 ambulatory Brock Modi Other [facility] Other Start: 03-19-2023 Telephone encounter Brock Modi [facility] Start: 03-16-2023 End: 03-16-2023 ambulatory Brock Modi Other [facility] Other Start: 03-16-2023 Office outpatient vi sit 15 minutes Brock Modi [facility] Start: 02-04-2023 End: 02-04-2023 ambulatory Brock Modi Other [facility] Other Start: 02-04-2023 Office outpatient vi sit 15 minutes Brock Modi [facility] Start: 01-29-2023 End: 01-29-2023 ambulatory Viral Yang Other [facility] Other Start: 01-29-2023 Telephone encounter Viral Yang [facility] Start: 01-27-2023 Rx Renewal Brock Modi Work Phone: [facility] 250 DO Work Phone: Start: 01-19-2023 Patient encounter procedure Brock Modi Work Phone: [facility] [address] [place] Work Phone: Start: 01-14-2023 End: 01-14-2023 ambulatory Brock Modi Other [facility] Other Start: 01-14-2023 Telephone encounter Brock Modi [facility] Start: 12-24-2022 Office outpatient vi sit 40 minutes Brock Modi Work Phone: [facility] 250 DO Work Phone: Start: 12-24-[address] Alok chauhan [employer] Facility: Start: 12-04-2022 End: 12-04-2022 ambulatory Brock Modi Other [facility] Other Start: 12-04-2022 Telephone encounter Brock Modi [facility] Start: 12-03-2022 End: 12-03-2022 ambulatory Brock Modi Other [facility] Other Start: 12-03-2022 Telephone encounter Brock Modi [facility] Start: 11-27-2022 End: 11-27-2022 ambulatory Wagner Marrufo Other [facility] Other Start: 11-27-2022 Office outpatient vi sit 25 minutes Wagner Marrufo [facility] Start: 11-12-2022 End: 11-12-2022 ambulatory Brock Modi Other [facility] Other Start: 11-12-2022 Office outpatient vi sit 15 minutes Brock Modi [facility] Start: 11-04-2022 ambulatory JANINE SCOTT Facili ty:[facility] Start: 11-03-2022 End: 11-03-2022 ambulatory Kamal Chaban Facility:[place] Start: 11-03-2022 End: 11-03-2022 ambulatory MD Brock Modi Work Phone: [facility] Work Phone: Start: 11-03-2022 End: 11-03-2022 Patient encounter procedure MD Brock Modi Work Phone: [facility]-CT Scan [place] Work Phone: Start: 11-02-2022 Patient encounter procedure Brock Modi Work Phone: [facility] 250 DO Work Phone: Start: 11-02-2022 ambulatory Janine Cunha Facility:1 [id number] Start: 10-29-2022 Chart Update Brock Modi Work Phone: [facility] 600 DO Work Phone: Start: 10-28-2022 End: 10-28-2022 ambulatory Janine Cunha Facility:[place] Start: 10-28-2022 End: 10-28-2022 ambulatory MD Brock Modi Work Phone: [facility] Work Phone: Start: 10-28-2022 End: 10-28-2022 Patient encounter procedure MD Brock Modi Work Phone: [facility]-Lab [place] Work Phone: Start: 10-27-2022 End: 10-27-2022 ambulatory Brock Modi Other [employer] Other Start: 10-27-2022 Telephone encounter Brock Modi [facility] Start: 10-21-2022 Transitional care juan diego perezlelo srvc 14 day discharge Brock Modi Work Phone: [facility] 250 DO Work Phone: Start: 10-21-2022 End: 10-21-2022 ambulatory Janine Cunha [employer] Other Start: 10-21-2022 Telephone encounter Adi Campos [facility] [employer] [facility] Start: 10-20-2022 End: 10-20-2022 ambulatory Adi Campos Other [employer] Other Start: 10-20-2022 Office outpatient ne w 45 minutes Adi Campos [facility] Start: 10-15-2022 End: 10-15-2022 ambulatory Brock Modi Other [employer] Other Start: 10-15-2022 Office outpatient vi sit 15 minutes Brock Modi [facility] Start: 10-10-[address] Brock Modi Facility:[id number] Start: 10-10-2022 End: 10-13-2022 Evaluation and management of inpatient Farida Berrios Facility:[place] Start: 10-10-2022 End: 10-13-2022 Evaluation and management of inpatient MD Brock Modi Work Phone: [facility]-4 [place] [employer] Work Phone: Start: 10-10-2022 End: 10-10-2022 ambulatory COLIN TREADWELL Facility:H1 Start: 09-09-2022 End: 09-09-2022 ambulatory Wagner Marrufo Facility:[place] Start: 09-09-2022 Office outpatient ne w 45 minutes Wagner Marrufo [facility] Start: 09-09-2022 End: 09-09-2022 ambulatory DO Wagner Marrufo Work Phone: [facility] Work Phone: Start: 09-09-2022 End: 09-09-2022 Patient encounter procedure DO Wagner Marrufo Work Phone: [facility] [place] [facility] Start: 09-07-2022 End: 09-08-2022 ambulatory COLIN TREADWELL Facility:H1 Start: 08-13-2022 End: 08-13-2022 ambulatory Brock Modi Other [employer] Other Start: 08-13-2022 Office outpatient vi sit 15 minutes Brock Modi [facility] Start: 08-10-2022 End: 08-11-[address] BROCK MODI Facility:[facility]1 Start: 07-30-2022 End: 07-30-2022 ambulatory Brock Modi Other [employer] Other Start: 07-30-2022 Office outpatient vi sit 25 minutes Brock Modi [facility] Start: 07-28-2022 End: 07-28-2022 ambulatory Brock Modi Other [employer] Other Start: 07-28-2022 Telephone encounter Brock Modi [facility] [employer] Start: 07-10-2022 End: 07-11-[address] CAR LIGHT Facility:H1 Start: 07-08-2022 End: 07-08-[address] JANELLE Moser Facility:[facility]1 Start: 07-05-2022 End: 07-05-[address] RUBÉN DALY Facility:H1 Start: 07-03-2022 End: 07-04-[address] ARLIN CUNHA Facility:H1 Start: 02-03-2022 End: 02-03-[address] ARLIN CUNHA Facility: Patient encounter status Brock Modi Work Phone: [facility] 250 DO Work Phone: Procedures Date Procedure [...] Alok Webber, Status: Pen, Time: 11:20 AM [facility] 250 DO Work Phone: Start: 01-19-2023 FUV, Provider: Alok Webber, Status: Pen, Time: 2:30 PM FUV, Provider: Alok Webber, Status: Pen, Time: 2:30 PM [facility] Work Phone: Start: 11-02-2022 HOLTER 48, Provider: VERONICA LANGLEY BUTTON BREAKER OPERATOR 1,[id number], Status: Pen, Time: 2:30 PM HOLTER 48, Provider: VERONICA LANGLEY BUTTON BREAKER OPERATOR 1,[id number], Status: Pen, Time: 2:30 PM [facility] 250 DO Work Phone: Start: 10-13-2022 [place] Start: 10-10-2022 Dilation of Coronary Artery, Two Arteries with Three Drug-eluting Intraluminal Devices, Percutaneous Approach Dilation of Coronary Artery, Two Arteries with Three Drug-eluting Intraluminal Devices, Percutaneous Approach [place] Start: 10-10-2022 Fluoroscopy of Left Heart using Low Osmolar Contrast Fluoroscopy of Left Heart using Low Osmolar Contrast [place] Start: 10-10-2022 Fluoroscopy of Multiple Coronary Arteries using Low Osmolar Contrast Fluoroscopy of Multiple Coronary Arteries using Low Osmolar Contrast [place] Start: 10-10-2022 Measurement of Cardiac Sampling and Pressure, Left Heart, Percutaneous Approach Measurement of Cardiac Sampling and Pressure, Left Heart, Percutaneous Approach [place] Start: 10-10-2022 Hospital admission [place] Start: 10-10-2022 [place] Start: 10-10-2022 Hospital admission [place] Start: 10-10-2022 [place] Patient Education Coronary Angio plasty (DC) Coronary Stenting (DC) Angina (DC) Chest Pain (DC) Drug Eluting Stents [facility] Work Phone: Patient referral [facility] Work Phone: Immunizations Immunization Date Immunization Notes Care Provider Fa cili 05-02-2018 pneumococcal Conjuga te, unspecified formulation; Translations: [Need for prophylactic vaccination against Streptococcus pneumoniae (pneumococcus)] Brock Modi Other [facility] [employer] Other 05-02-2018 pneumococcal polysaccharide vaccine, 23 valent Brock Modi Work Phone: [facility] 250 DO Work Phone: 05-26-2017 pneumococcal conjuga te vaccine, 13 valent Brock Modi Work Phone: [facility] 250 DO Work Phone: Payers Date Payer Category Payer Medicaid [id number] 2. [id number] 2022 Self-pay 1960 Unknown [id number] 2.16.840.1.025180.3.579.2.593 1960 Unknown [id number] 2.16.840.1.610455.3.579.2.593 1960 Unknown [id number] 2.16.840.1.670466.3.579.2.593 1960 Unknown [id number] 2.16.840.1.121054.3.579.2.593 1960 Unknown [id number] 2.16.840.1.942729.3.579.2.593 1960 Unknown [id number] 2.16.840.1.433556.3.579.2.593 1960 Unknown [id number] 2.16.840.1.201488.3.579.2.593 1960 Unknown [id number] 2.16.840.1.717273.3.579.2.593 1960 Unknown [id number] 2.16.840.1.824431.3.579.2.593 1960 Unknown [id number] 2.16.840.1.575938.3.579.2.356 1960 Unknown [id number] .16.840.1.950303.3.579.2.356 1960 Unknown [id number] 2.16.840.1.754112.3.579.2.356 1960 Unknown [id number] 2.16.840.1.090236.3.579.2.356 1960 Unknown [id number] 2.16.840.1.175215.3.579.2.356 1959 Unknown [id number] 2. 16.840.1.841236.19 Unknown [facility] Unknown [id number] 2.16.840.1.369960.3.579.2.531 Unknown [id number] 2.16.840.1.748339.3.579.2.531 Unknown [id number] 2.16.840.1.987014.3.579.2.531 Unknown [id number] 2.16.840.1.620737.3.579.2.531 Social History Date Type Detail Facility Tobacco smoking stat [facility] Unknown if ever smoked [facility] Work Phone: Start: 1960 Sex Assigned At Male F [facility] Sex Assigned At Sex Assigned At [facility] [employer] Other Start: 10-10-2022 Tobacco smoking stat [facility] Smoker (finding) [place] Daily caffeine consumption Daily caffeine consumption -[facility] 250 DO Work Phone: Comment on above: 1/2 gallon coffee da darrion; 5-6 cig daily; 8 cigs daily; Medical Equipment Procedure Code Equipment Code Equipment Origin al Text Equipment Identifier Dates Drug-eluting coronary artery stent, cpw-yxnctmacergqp-ql lymer-coated ()[id number] [id number] FDA Start: 10-10-2022 Drug-eluting coronary artery stent, cbo-rqncaxhgztybf-qo lymer-coated ()[id number] [id number] FDA Start: 10-10-2022 Drug-eluting coronary artery stent, xjz-gtqjuvpuajnei-is lymer-coated ()[id number] [id number] FDA Start: 10-10-2022 Goals Date Patient Goal Desired Activity /State Functional Status Date Assessment Result Facility 10-13-2022 Functional status Patient at Baseline [facility] Work Phone: Mental Status Date Assessment Result Facility 10-13-2022 Cognitive function Cognitive Sta tus Patient at Baseline [facility] Work Phone: Clinical Notes 07-30-2022 to 07-16-2023 Note Date & Type Note Facility 07-16-2023 Evaluation note Encounter Date Diagnosis Assessment Notes Jun, Abdominal aortic aneurysm (AAA) without rupture, unspecified part (ICD-10 - I71.40) [facility] Other 11-30-2023 Evaluation note* Encounter Date Diagnosis Assessment Notes Treatment Notes Treatment Clinical Notes May, Abdominal aortic aneurysm (AAA) without rupture, unspecified part (ICD-10 - I71.40) Pt requests order as he is overdue for recheckUS. May, Bronchitis (ICD-10 - J40) Finish meds and treatment plan ordered by ER recently. Pt understands as he is improving. [facility] Other 08-25-2023 Evaluation note* Encounter Date Diagnosis Assessment Notes Treatment Notes Treatment Clinical Notes Feb, Acute cystitis without hematuria (ICD-10 - N30.00) [facility] Other 08-22-2023 Evaluation note* Encounter Date Diagnosis Assessment Notes Treatment Notes Treatment Clinical Notes Feb, Penile discharge (ICD-10 - R36.9) Pt request STI testing Feb, Dysuria (ICD-10 - R30.0) Rule out UTI based on symptoms. Will call w results. Push fluids. Feb, Chronic obstructive pulmonary disease, unspecified (ICD-10 - J44.9) Clinical diagnosis secondary to [id number] history of tobacco abuse. He will need PFTs in the future. Discussed missed appts w Dr. Campos and sleep lab. He states he will not followup there as he doesn't want to do a lung biopsy. His resp symptoms are improved overall. He expresses understanding on the severity of his condition and he chooses not to followup. [facility] Other 07-13-2023 Evaluation note* Encounter Date Diagnosis Assessment Notes Treatment Notes Treatment Clinical Notes Jan, COPD, moderate (ICD-10 - J44.9) Reminded him to keep appt w Dr. Campos on 02/10. Continue home medications. Avoid going outside with there is haze. Jan, Other sleep disorders (ICD-10 - G47.8) Gave number for [facility]. He missed his last appt as his daughter had COVID. He will call to reschedule. [facility] Other 07-07-2023 Evaluation note* Encounter Date Diagnosis Assessment Notes Treatment Notes Treatment Clinical Notes Jan, Situational anxiety (ICD-10 - F41.8) [facility] Other 05-11-2023 Evaluation note* Encounter Date Diagnosis Assessment Notes Treatment Notes Treatment Clinical Notes November, Situational anxiety (ICD-10 - F41.8) [facility] Other 05-05-2023 Evaluation note* Encounter Date Diagnosis [...] any surgical interventions. Tobacco cessation program at [place] has been recommended and offered as well as the national Quitline 5-515-TSIW-. We have discussed pharmacologic treatment including nicotine replacement therapy which can lead to a positive nicotine test as well as nicotine free medications both of which will need to be managed by their PCP. We have provided handout for the [place] Tobacco Cessation Program. This discussion was limited to 5 minutes. [facility] Other 04-20-2023 Evaluation note* Encounter Date Diagnosis Assessment Notes Treatment Notes Treatment Clinical Notes Oct, Chronic obstructive pulmonary disease, unspecified COPD type (ICD-10 - J44.9) Will resume inhalers as prescribed. Keep appt w Dr. Campos. Notes frequent dyspnea, agrees to a prednisone course. Oct, INOCENTE (obstructive sleep apnea) (ICD-10 - G47.33) [facility]. He has to meet with the sleep specialist before the test is done, even though it was already ordered. I gave him the date of the appt. I also ordered the test. Oct, Coronary artery disease involving tanana heart without angina pectoris, unspecified vessel or lesion type (ICD-10 - I25.10) Continued followup w [facility]. Continue time off work until breathing status is improved. [facility] Other 03-28-2023 Evaluation note* Encounter Date Diagnosis Assessment Notes Treatment Notes Treatment Clinical Notes Sep, Chronic obstructive pulmonary disease, unspecified COPD type (ICD-10 - J44.9) Trelegy samples and training please Sep, Atelectasis of right lung (ICD-10 - J98.11) Please obtain any previous chest CT done at [facility] in the past, and have them load onto our PACS Sep, Tobacco use disorder (ICD-10 - F17.200) Sep, Coronary artery disease involving tanana heart without angina pectoris, unspecified vessel or lesion type (ICD-10 - I25.10) [facility] Other 03-23-2023 Evaluation note* Encounter Date Diagnosis Assessment Notes Treatment Notes Treatment Clinical Notes Sep, Coronary artery disease involving tanana coronary artery of tanana heart without angina pectoris (ICD-10 - I25.10) [...] needs a titration study at the least. [facility] Other 03-21-2023 Hospital Discharge instructions Additional Instructions [...] doctor or pharmacist, without first calling the refrigeration brazer/solderer who implanted the stent. If you require [...] weight lifting, stair steppers, etc. until the refrigeration brazer/solderer approves these activities. Check with the refrigeration brazer/solderer on your first follow-up visit. CALL YOUR PHYSICIAN at [phone]: -If bleeding should occur from the catheter insertion site- apply pressure to the site then immediately call us. -Report any fever, redness, drainage, increased swelling, or firmness at the catheter insertion site. Some bruising or slight swelling may be present at the time of discharge. -Should arm or leg become cold, numb, white, or blue, contact the refrigeration brazer/solderer immediately. -IF you should experience episodes of [...] is recommended. Please call Central Scheduling at [phone] to schedule your appointment.] The attending refrigeration brazer/solderer or [facility] nurse clinician should provide you with specific instructions regarding activity, diet, medications, and further follow up for you. Follow the medication instructions provided on your discharge. If the dosages and instructions on this sheet differ from the dosage and instructions on the bottle, follow the instructions on the bottle. [place] is not responsible for incorrect prescription information provided by the patient during their visit. Do not stop your medications without consulting your health care provider. Please take the list with you to your next doctor's appointment.[facility] Work Phone: 1(280) 715-166803-21-2023 Progress note Author Rubén Tatum [place] October 13, 2022 9:02am Note Date/Time October 13, 2022 9:0 2am [facility] [address] [place] [address] Cardiology Progress Note Signed Patient: Hector Gaspar SR MR#: [id number] : 1960 Acct:[id number] Age/Sex: 62 / M Adm Date: 3 Loc: Room: [address] [place] [address] Type: ADM IN Attending Dr: Barbara Rivero [...] on postNSTEMI/PCI metoprolol tartrate. 5. Follow-up in [facility] heart [facility] within 10 days. From there strongly recommend [...] signed by Rubén Tatum MD> 10/13/22 0902 [facility] Work Phone: 1(625) 831-122703-20-2023 Progress note Author Barbara Rivero [place] October 12, 2022 2:24pm Note Date/Time October 12, 2022 2:1 2pm [facility] [address] [place] [address] Hospitalist Progress Note Signed Patient: Hector Gaspar SR MR#: [id number] : 1960 Acct:[id number] Age/Sex: 62 / M Adm Date: 3 Loc: Room: [address] [place] [address] Type: ADM IN Attending Dr: Barbara Rivero [...] Tablet PO 10/10/23 20:59 25 mg BID [facility] Administration Morphine Sulfate 2 mg 10/10/22 05:41 [...] this time. (3) Ventricular tachycardia seen on director of cardiac rehabilitation: Plan: No further episodes of ventricular tachycardia. [...] placement. Documented By: Barbara Rivero MD 10/12/22 1403 Signed By: <Electronically signed by Barbara Rivero MD> 10/12/22 1425 [facility] Work Phone: 1(777) 391-651303-20-2023 Progress note Author Rubén Tatum [place] October 12, 2022 10:00am Note Date/Time October 12, 2022 9:5 9am [facility] [address] [place] [address] Cardiology Progress Note Signed Patient: Hector Gaspar SR MR#: [id number] : 1960 Acct:[id number] Age/Sex: 62 / M Adm Date: 3 Loc: Room: [address] [place] [address] Type: ADM IN Attending Dr: Barbara Rivero [...] pacing device. (3) Ventricular tachycardia seen on director of cardiac rehabilitation: Assessment/Problem Details: Stable no further wide-complex tachycardia [...] signed by Rubén Tatum MD> 10/12/22 1000 [facility] Work Phone: 1(165) 669-394703-19-2023 Progress note Author Barbara Rivero [place] October 11, 2022 11:24am Note Date/Time October 11, 2022 11: 15am [facility] [address] [place] [address] Hospitalist Progress Note Signed Patient: Hector Gaspar SR MR#: [id number] : 1960 Acct:[id number] Age/Sex: 62 / M Adm Date: 3 Loc: Room: [address] [place] [address] Type: ADM IN Attending Dr: Barbara Rivero [...] smoking cessation. (3) Ventricular tachycardia seen on director of cardiac rehabilitation: Plan: Patient given potassium and magnesium supplement. [...] <Electronically signed by Barbara Rivero MD> 10/11/22 1121 [facility] Work Phone: 1(851) 413-760203-19-2023 Progress note Author Rubén Tatum [place] October 11, 2022 9:41am Note Date/Time October 11, 2022 9:3 3am [facility] [address] [place] [address] Cardiology Progress Note Signed Patient: Hector Gaspar SR MR#: [id number] : 1960 Acct:[id number] Age/Sex: 62 / M Adm Date: 3 Loc: 4 Room: [address] [place] [address] Type: ADM IN Attending Dr: Barbara Rivero [...] % (Auto) 63.8 Lymph % (Auto) 21.8 Frontier % (Auto) 10.2 Eos % (Auto) 3.7 Baso % (Auto) 0.5 Nucleat RBC Rel Count 0.1 Neut # (Auto) 4.2 Lymph # (Auto) 1.4 Frontier # (Auto) 0.7 Eos # (Auto) 0.2 [...] MPV Neut % (Auto) Lymph % (Auto) Frontier % (Auto) Eos % (Auto) Baso % (Auto) Nucleat RBC Rel Count Neut # (Auto) Lymph # (Auto) Frontier # (Auto) Eos # (Auto) Baso # [...] AV node (3) Ventricular tachycardia seen on director of cardiac rehabilitation: Assessment/Problem Details: Not entirely certain that this [...] (min): 30 Documented By: Rubén Tatum MD 10/11/22930 Signed By: <Electronically signed by Rubén Tatum MD> 10/11/22 0941 [facility] Work Phone: 1(829) 369-695303-18-2023 Progress note Author Barbara Rivero [place] October 10, 2022 1:33pm Note Date/Time October 10, 2022 1:3 3pm [facility] [address] [place] [address] Event Note Signed Patient: Hector Gaspar SR MR#: [id number] : 1960 Acct:[id number] Age/Sex: 62 / M Adm Date: 3 Loc: Room: [address] [place] [address] Type: ADM IN Attending Dr: Barbara Rivero [...] <Electronically signed by Barbara Rivero MD> 10/10/221332 [facility] Work Phone: 1(616) 374-900903-18-2023 History of Present illness Narrative* Patient presents to the office ambulatory with steady gait. * This is initial in clinic follow-up at [facility]. * October 10, 2022 transferred to [place] from [facility] d/t NSTEMI. Managed by with uneventful PCI, [...] medication regimen. He denies medication side effects. [facility] 250 DO Work Phone: 1(606) 687-375903-18-2023 Procedure [facility]03-18-2023 Procedure [facility]03-18-2023 Consult note Author Rubén Tatum [place] October 10, 2022 9:54am Note Date/Time October 10, 2022 9:5 1am [facility] [address] [place] [address] Cardiology Consult Note Signed Patient: Hector Gaspar SR MR#: [id number] : 1960 Acct:[id number] Age/Sex: 62 / M Adm Date: 3 Loc: 3T Room: [address] [place] [address] Type: ADM IN Attending Dr: Barbara Rivero MD Copies to: MD Barbara Barry MD Stephen M Tann, MD~ Cardiology HPI History of Present Illness Consult Date: 10/10/22 Reason for Consult: Nausea, non-STEMI HPI: Mr. Gaspar is a 62 year old male with multiple cardiac risk factors but no known prior coronary heart disease who presented to [facility] emergency department lastnight complaining of nausea x2 [...] consistent nausea ever since. He presented to [facility] emergency department last evening with these complaints. In the ER at [facility] ECG showed Q waves in the inferolateral [...] trend upward to 6000 and then greater [id number]. Echocardiogram at bedside this morning shows normal [...] negative unless noted below or [facility] Vaccinated for COVID-19?: No Medical History Asthma [...] Lymph # (Auto) 1.4 1.4 (1.00-4.8) x10E3/uL Frontier # (Auto) 0.6 0.6 (0.0-0.8) x10E3/uL Eos [...] Dysrhythmias Sinus rhythms and dysrhythmias: sinus rhythm NH, pacemaker, normal Myocardial infarction: inferior NH (old age indeterminate) and lateral NH (acuteor recent) A&P - Cardiology (1) NSTEMI [...] signed by Rubén Tatum MD> 10/10/22 0954 [facility] Work Phone: 1(461) 728-777603-18-2023 History and physical note Author Galo Dent [place] October 10, 2022 7:28am Note Date/Time October 10, 2022 7:2 8am [facility] [address] [place] [address] Hospitalist H&P Signed Patient: Hector Gaspar SR MR#: [id number] : 1960 Acct:[id number] Age/Sex: 62 / M Adm Date: 3 Loc: 3T Room: [address] [place] [address] Type: ADM IN Attending Dr: Barbara Rivero MD Copies to: MD Barbara Barry MD Mushtaq Mahmood, MD~ HPI DATE OF EXAMINATION: 10/10/22 CHIEF COMPLAINT: Non-ST elevation NH HISTORY OF PRESENT ILLNESS: Patient is a 62-year-old gentleman with history of hypertension, heavy smoking about 1-1/2 pack for 45 years, COPD, strong family history of coronary artery disease, came to us from [facility] emergency department last night. Patient presented to [...] The ER physician did talk to the refrigeration brazer/solderer here in [facility]. Patient was started on heparin drip, nitro patch was applied. He was sent to our hospital. Upon arrival in the [place] patient complained about headache. Nitropatch was removed. [...] % (Auto) 27.5 % (.) 10/10/22 06:10 Frontier % (Auto) 11.4 % (.) 10/10/22 06:10 Eos % (Auto) 4.4 % (.) 10/10/22 06:10 Baso % (Auto) 0.6 % (.) 10/10/22 06:10 Nucleat RBC Rel Count 0.1 /100 WBC (0-0.5) 10/10/22 06:10 Neut # (Auto) 2.9 x10E3/uL (1.8-7.7) 10/10/22 06:10 Lymph # (Auto) 1.4 x10E3/uL (1.00-4.8) 10/10/22 06:10 Frontier # (Auto) 0.6 x10E3/uL (0.0-0.8) 10/10/22 06:10 [...] heartcath by cardiology today. I have consulted [facility] heart. He was offered nicotine patch. I [...] signed by Galo Dent MD> 10/10/22 0728 [facility] Work Phone: 1(237) 645-761302-15-2023 Evaluation note* Encounter Date Diagnosis Assessment Notes [...] in office today. Prior medical notes from [facility] and history have been reviewed. At this [...] any surgical interventions. Tobacco cessation program at [place] has been recommended and offered as well as the national Quitline 9-217-NSCL-NOW. We have discussed pharmacologic treatment including nicotine replacement therapy which can lead to a positive nicotine test as well as nicotine free medications both of which will need to be managed by their PCP. We have provided handout for the [place] Tobacco Cessation Program. This discussion was limited to 5 minutes. Aug, Other See orders for this visit as documented in the electronic medical record. [facility] Other 01-19-2023 Evaluation note* Encounter Date Diagnosis Assessment Notes Treatment Notes Treatment Clinical Notes Jul, Chronic obstructive pulmonary disease with acute exacerbation (ICD-10 - J44.1) Discussed diagnosis with patient. Medication profile and possible SE reviewed with patient. Take as directed. Keep appt w Dr. Castillo on 08/31. Notify office if not improving or worsening. Patient verbalizes understanding and agrees to treatment plan. [facility] Other 01-05-2023 Evaluation note* Encounter Date Diagnosis Assessment Notes Treatment Notes Treatment Clinical Notes Jul, Chronic obstructive pulmonary disease with acute exacerbation (ICD-10 - J44.1) [facility] Other Discharge summary Author Barbara Rivero [facility] October 13, 2022 2:14pm Note Date/Time October 13, 2022 2:0 9pm [facility] [address] [place], [place] [id number] Discharge Summary Signed Patient: Hector Gaspar SR MR#: [id number] : 1960 Acct:[id number] Age/Sex: 62 / M Adm Date: 3 Loc: Room: [address] [place] [address]: Barbara Rivero MD Copies to: [...] transferred from outside facility for non-ST elevated NH. He was started on heparin drip as [...] doctor or pharmacist, without first calling the refrigeration brazer/solderer who implanted the stent. If you require [...] weight lifting, stair steppers, etc. until the refrigeration brazer/solderer approves these activities. Check with the refrigeration brazer/solderer on your first follow-up visit. CALL YOUR PHYSICIAN at [phone]: -If bleeding should occur from the catheter insertion site- apply pressure to the site then immediately call us. -Report any fever, redness, drainage, increased swelling, or firmness at the catheter insertion site. Some bruising or slight swelling may be present at thetime of discharge. -Should arm or leg become cold, numb, white, or blue, contact the refrigeration brazer/solderer immediately. -IF you should experience episodes of [...] is recommended. Please call Central Scheduling at [phone] to schedule your appointment.] The attending refrigeration brazer/solderer or [facility] nurse clinician should provide you with specific instructions regarding activity, diet, medications, and further follow up for you. Follow the medication instructions provided on your discharge. If the dosages and instructions on this sheet differ from the dosage and instructions on the bottle, follow the instructions on the bottle. 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 (Routine) Timeframe: 1 Week Location: Determined by Patient Ordered By: Barbara Rivero Follow Up: [facility] [Outside] ([facility] regarding need for outpatient [...] signed by Barbara Rivero MD> 10/13/22 1414 [facility] Work Phone: Evaluation noteNo assessment information available [facility] Work Phone: Evaluation noteNo InformationNort [employer] Other Evaluation note* Diagnosis Onset Date Resolution Status COPD (chronic obstructive pulmonary disease) acute Heart block AV complete acut e Hypertension acute Hypoxemia acute NSTEMI (non-ST elevated myocardial infarction) acute Sleep apnea in adult acute Tobacco abuse acute Ventricular tachycardia seen on director of cardiac rehabilitation acute [facility] Work Phone: History general Narrative [...] History appendectomy 05/02/18 Hospitalization History SEE SURGICAL [facility] Other Hiskipm general Narrative - Reported* Type Description Date [...] 3 Stents 09/2022 Hospitalization History SEE SURGICAL [facility] Other Hiskqjj general Narrative - Reported* Type Description Date [...] Stents 09/2022 Hospitalization History SEE SURGICAL HX [facility] Other History general Narrative - Reported* Type [...] History SEE SURGICAL HX Hospitalization History pneumonia [facility] Other Chief Complaint and Reason for Visit Chief Complaint M25.561 Elevated Troponin Reason for Visit COPD (chronic obstru ctive pulmonary disease) Heart block AV complete Hypertension Hypoxemia NSTEMI (non-ST elevated myocardial infarction) Sleep apnea in adult Tobacco abuse Ventricular tachycardia seen on director of cardiac rehabilitation Chief Complaint M25.561 Elevated Troponin I25.10 I10 E78.2 Reason for Visit COPD (chronic obstru ctive pulmonary disease) Heart block AV complete Hypertension Hypoxemia NSTEMI (non-ST elevated myocardial infarction) Sleep apnea in adult Tobacco abuse Ventricular tachycardia seen on director of cardiac rehabilitation Chief Complaint M25.561 Elevated Troponin I25.10 I10 E78.2 j98.11 Reason for Visit COPD (chronic obstru ctive pulmonary disease) Heart block AV complete Hypertension Hypoxemia NSTEMI (non-ST elevated myocardial infarction) Sleep apnea in adult Tobacco abuse Ventricular tachycardia seen on director of cardiac rehabilitation Family History Relationship Condition Age at Onset [...] Date/ Time Advance Directives No August 2:30pm [facility] f/u: 'doing good'* HECTOR GASPAR is being seen for pre-operative clearance. * 62-year-old gentleman here for preoperative risk assessment and clearance at the request of Dr. Campos for endobronchial biopsy to be performed in mid December. 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 Summary Purpose Reason for Referral Reason *FU 07/28 5cm AAA - report scanned. Diagnosis 1 Abdominal aortic ane urysm (AAA) without rupture, unspecified part (I71.40) Referral Organization [facility] Referring Provider First Name Brock Referring Provider Last Name Ly Referring Provider Specialty [facility] Referred Organization [facility] Referred Provider Kana Faith Referred Address [address] [place], [place],[address] Referred Provider Specialty Vascular Mir michelle Referral Priority Routine General Notes Helen Mendez 09:16:43 AM >received today, attachments made, ntoes locked, referral faxed Clinical Notes p: [phone] f: [id number] Additional Source Comments Care Teams (unrecognized sec [...] MD Primary Care Provider Active Janine Cunha , [place] Attending Provider Active Team Status: Inactive Member [...] FOR VISIT (unrecogniz ed section and content) US resultTBHsleep apnea disc ussionrefillAlprazolamRecheck Right KneeReason for Visit:Holter Monitor:HECTOR is here for the application of a 48 hour Holter monitor.Ordering Physician: JANINE CUNHADiagnosis: CAD SINUS PAUSENOHC equipment agreement signed. HECTOR understands monitor is to be returned on: [id number] number [id number] applied.Holter monitor returned and downloaded.messagePulmonary Office NotesRef by Dr. Brock Modi for [facility] HAD HEART ATTACKRight Knee PainCheck Upnot feeling back to normal- discussion (unrecognized sect ion and content) No Status Records FoundNo Status Records FoundNo Status Records FoundNo Status Records Found INFORMATION SOURCE (unrecogn ized section and content) DATE CREATED AUTHOR 11/07/2022 [facility] DATE CREATED AUTHOR AUTHOR'S ORGANIZ ATION 11/12/2022 [facility] DATE CREATED AUTHOR AUTHOR'S ORGANIZ ATION 01/02/2023 [employer] DATE CREATED AUTHOR AUTHOR'S ORGANIZ ATION 04/09/2023 [facility] FOR RECORDS PERTAINING TO PATIENTS WHO [...] BE BASED ON THE PRIMARY CLINICAL RECORDS. [facility] provides no warranty or guarantee of the accuracy or completeness of information in this document.
--- NOTE | 2023-08-04 21:49 | XR_ITS ---
The [address] [address] Patient Name: HECTOR HIGHTOWER MRN: [id number] date: 1960 Sex: M Assigned Patient Location: ER Current Patient Location: ER Accession/Order Number: [id number] Exam Date: 08/04/2023 22:50 Report Date: 08/04/2023 23:06 At the request of: CIARA MARKER Procedure: XR chest 1V EXAM: CHEST X-RAY HISTORY: Chest pain. COMPARISON: 06/28/2023 TECHNIQUE: 1 view chest is submitted for review. FINDINGS: Lines and tubes: None. Platelike atelectasis demonstrated left lung base. The lungs are hyperexpanded. No infiltrate. No effusion. The cardiac silhouette is enlarged.. Pulmonary vascularity is unremarkable. Osseous structures are within expected limits for patients age. . XR/XR chest 1V IMPRESSION: 1. Cardiomegaly. 2. Hyperexpanded lungs which can be seen in the setting of COPD. Electronically authenticated by: SARTHAK DOMINGUEZ Date: 08/04/2023 23:06
--- NOTE | 2023-08-04 21:54 | ED.SOB1 ---
HPI - SOB/Dyspnea General Chief Complaint: Shortness of Breath/Dyspnea Stated Complaint: SOB Time Seen by Provider: 08/04/23 21:45 Source: patient Mode of arrival: walk-in Limitations: no limitations History of Present Illness HPI Narrative: This Emergency Department 2-year-old male with a history of chronic obstructive pulmonary disease presents for evaluation of 4 days of increasing shortness of breath. He continues to smoke about a 3rd of a pack of cigarettes on a daily basis and also sucks on a cigar. He denies any chest pain or fever. He states he thinks he may be a little dehydrated because he has not been drinking a lot of water. He has been mildly nauseated. He has no lower extremity pain or swelling. He states he wanted to get this addressed sooner than later so that he doesn't end up worse. He has a dry cough and occasionally white phlegm. Related Data Home Medications Medication Instructions Recorded Confirmed albuterol sulfate 90 mcg/actuation 1 puff inhalation Q4H PRN 01/24/23 06/23/23 aerosol inhaler shortness of breath or wheezing alprazolam 0.5 mg tablet 0.25 mg PO BID PRN anxiety 01/24/23 06/23/23 aspirin 81 mg chewable tablet 1 tab PO DAILY 01/24/23 06/23/23 atorvastatin 80 mg tablet 80 mg PO QPM 01/24/23 06/23/23 Previous Rx's Medication Instructions Recorded ondansetron 4 mg disintegrating 4 mg PO Q6H PRN nausea and 01/24/23 tablet vomiting #20 tabs ondansetron 4 mg disintegrating 4 mg PO Q8H PRN nausea and 06/23/23 tablet vomiting 4 days #14 tabs nugoopjuquyxiia-hbngchtoefjakrw-TC 10 ml PO Q6H PRN cold symptoms 06/28/23 2 mg-30 mg-10 mg/5 mL oral syrup #200 mL (Bromfed DM) doxycycline hyclate 100 mg tablet 100 mg PO BID 7 days #14 tabs 06/28/23 methylprednisolone 4 mg tablets in See Rx Instructions .Route 06/28/23 a dose pack (Medrol (Maury)) .COMPLEX #21 ea Allergies Allergy/AdvReac Type Severity Reaction Status Date / Time Penicillins Allergy Severe Verified 06/28/23 19:53 pneumonia shot AdvReac Intermediate Uncoded 06/28/23 19:53 Review of Systems ROS Status of ROS 10 or more systems reviewed and unremarkable except as noted in history and below [facility] Medical History (Updated 08/05/23 @ 00:08 by Penelope Diaz MD) Hypercholesterolemia ?E78.00 - Pure hypercholesterolemia, unspecified (ICD-10) COPD (chronic obstructive pulmonary disease) ?J44.9 - Chronic obstructive pulmonary disease, unspecified (ICD-10) Social History Smoking status: Current some day smoker Exam Narrative Exam Narrative: Nurses note and vital signs reviewed and patient is not hypoxic. General: Well-appearing adult male, mild conversational dyspnea, no haylie respiratory distress Skin: Warm, dry, no pallor noted. There is no rash noted. Head: Normocephalic, atraumatic Eye: Normal conjunctiva, no drainage, EOMI. PERRL Ears, Nose, Mouth, and Throat: oral mucosa is Slightly dry, tobacco stained mustache Cardiovascular: Regular Rate and Rhythm S1S2, pulses are brisk and equal Respiratory: Diffuse expiratory wheezing, mild conversational dyspnea, patient is not hypoxic with pulse ox of 98 percent on room air Back: non-tender, no CVA tenderness bilaterally to percussion. GI: Normal bowel sounds, no tenderness to palpation, no masses appreciated. No rebound, guarding, or rigidity noted. Musculoskeletal: The patient has no evidence of calf tenderness, no pitting edema, symmetrical pulses noted bilaterally Neurological: A&O x4, normal speech Psychiatric: Cooperative Constitutional Vital Signs, click to edit/add: Last Vital Signs Temp 97.9 F 08/04/23 21:36 Pulse 73 08/05/23 00:10 Resp 18 08/05/23 00:10 BP 94/52 08/05/23 00:01 Pulse Ox 96 08/05/23 00:10 O2 Del Method Room Air 08/04/23 22:39 Course Vital Signs Vital signs: Vital Signs Temperature 97.9 F 08/04/23 21:36 Pulse Rate 68 08/04/23 21:36 Respiratory Rate 22 08/04/23 21:36 Blood Pressure 122/82 08/04/23 21:36 Pulse Oximetry 98 08/04/23 21:36 Oxygen Delivery Method Room Air 08/04/23 21:36 Temperature 97.9 F 08/04/23 21:36 Pulse Rate 73 08/05/23 00:10 Respiratory Rate 18 08/05/23 00:10 Blood Pressure 94/52 08/05/23 00:01 Pulse Oximetry 96 08/05/23 00:10 Oxygen Delivery Method Room Air 08/04/23 22:39 MDM - SOB/Dyspnea MDM Narrative Medical decision making narrative: This 63-year-old male with a history of chronic obstructive pulmonary disease who continues to smoke approximately one third of a pack of cigarettes on a daily basis presents for evaluation of 4 days of increasing shortness of breath. He denies any chest pain or fever. He has a nonproductive cough. He is not hypoxic. He is well-known to this emergency department for his chronic obstructive pulmonary disease exacerbations. He states that he wanted to get this and check so it did not get worse requiring him to be hospitalized. He is not currently seeing a composition tile layer. He was formally seeing a composition tile layer but felt that they were too invasive and stopped going. He has stable vital signs, he had diffuse expiratory wheezing. An IV was placed and he was medicated with IV fluids, Zofran for mild nausea, one 25 mg of Solu-Medrol, 2 g of IV magnesium and a DuoNeb treatment. Routine labs are reviewed. He is a normal white count and hemoglobin. Electrolytes are normal The exception of a mild elevation in his creatinine 1.62. The patient does admit that he has not been drinking much water lately. He is drinking pop. Troponin is normal. Chest x-ray shows some plate atelectasis in the right lower lobe and otherwise findings consistent with chronic obstructive pulmonary disease. Reevaluation the patient states he is feeling much better. His wheezing has resolved. He has remained hemodynamically stable in the emergency department. He was medicated with 100 mg of Zithromax. He declined the need for any inhalers or refills for his nebulizer. He was discharged home with a perception for a Medrol Dosepak and 4 more days of Zithromax. He was encouraged to drink plenty of fluids and discontinue smoking. Medical Records Medical records narrative: The [address] [address] XRay Report Signed Patient: HECTOR HIGHTOWER MR#: [id number] : 1960 Acct:[id number] Age/Sex: 63 / M ADM Date: 08/04/23 Loc: ER Attending Dr: Ordering Physician: Penelope Diaz Date of Service: 08/04/23 Procedure(s): XR chest 1V Accession Number(s): [id number] cc: Cielo Devries M.D.; Penelope Joe~ The [address] [address] Patient Name: HECTOR HIGHTOWER MRN: [facility]:[id number] date: 1960 Sex: M Assigned Patient Location: ER Current Patient Location: ER Accession/Order Number: [id number] Exam Date: 08/04/2023 22:50 Report Date: 08/04/2023 23:06 At the request of: PENELOPE DIAZ Procedure: XR chest 1V EXAM: CHEST X-RAY HISTORY: Chest pain. COMPARISON: 06/28/2023 TECHNIQUE: 1 view chest is submitted for review. FINDINGS: Lines and tubes: None. Platelike atelectasis demonstrated left lung base. The lungs are hyperexpanded. No infiltrate. No effusion. The cardiac silhouette is enlarged.. Pulmonary vascularity is unremarkable. Osseous structures are within expected limits for patients age. . XR/XR chest 1V IMPRESSION: 1. Cardiomegaly. 2. Hyperexpanded lungs which can be seen in the setting of COPD. Lab Data Labs: Lab Results 08/04/23 Range/Units 21:59 WBC 5.6 (4.0-11.0) 10^3/uL RBC 3.90 L (4.70-6.10) 10^6/uL Hgb 12.1 L (14.0-18.0) g/dL Hct 36.0 L (42.0-54.0) % MCV 92.3 (80.0-94.0) fL MCH 31.0 (25.9-34.0) pg MCHC 33.6 (29.9-35.2) g/dL RDW 12.9 (11.0-15.0) % Plt Count 223 (150-450) 10^3/uL MPV 9.0 L (9.5-13.5) fL Neut % (Auto) 53.3 (43.0-75.0) % Lymph % (Auto) 28.1 (20.5-60.0) % [place] % (Auto) 13.2 H (1.7-12.0) % Eos % (Auto) 4.3 (0.9-7.0) % Baso % (Auto) 0.7 (0.2-2.0) % Neut # (Auto) 3.0 (1.4-6.5) 10^3/uL Lymph # (Auto) 1.6 (1.2-3.8) 10^3/uL [place] # (Auto) 0.7 (0.3-0.8) 10^3/uL Eos # (Auto) 0.2 (0.0-0.7) 10^3/uL Baso # (Auto) 0.0 (0.0-0.1) 10^3/uL Abs Immat Gran (auto) 0.02 (0.00-0.03) 10^3/uL Imm/Tot Granulo (auto) 0.4 (0.0-0.5) % Sodium 132 L (136-145) mmol/L Potassium 4.0 (3.5-5.1) mmol/L Chloride 102 (98-107) mmol/L Carbon Dioxide 26.5 (21.0-32.0) mmol/L Anion Gap 7.5 BUN 24.0 H (7.0-18.0) mg/dL Creatinine 1.62 H (0.70-1.30) mg/dL Est GFR ( Amer) 52 L (>=60) Est GFR (Non-Af Amer) 43 L (>=60) BUN/Creatinine Ratio 14.8 Glucose 136 H (74-106) mg/dL Calcium 9.1 (8.5-10.1) mg/dL Total Bilirubin 0.3 (0.2-1.0) mg/dL AST 17 (15-37) U/L ALT 40 (16-63) U/L Alkaline Phosphatase 74 (46-116) U/L Troponin I High Sens 16.8 (4.0-76.1) pg/mL Total Protein 7.1 (6.4-8.2) g/dL Albumin 3.4 (3.4-5.0) g/dL Globulin 3.7 g/dL Albumin/Globulin Ratio 0.9 ECG Data Attestation: I personally reviewed and interpreted this ECG as follows: (Sinus rhythm at 70 beats for minute, normal axis, normal intervals, no acute ST segment elevation or T-wave inversion) Discharge Plan Discharge Chief Complaint: Shortness of Breath/Dyspnea Clinical Impression: COPD with acute exacerbation Patient Disposition: Home, Self-Care Time of Disposition Decision: 00:07 Condition: Good Prescriptions / Home Meds: No Action albuterol sulfate 90 mcg/actuation HFA aerosol inhaler 1 puff INHALATION Q4H PRN (Reason: shortness of breath or wheezing) alprazolam 0.5 mg tablet 0.25 mg PO BID PRN (Reason: anxiety) aspirin 81 mg tablet,chewable 1 tab PO DAILY atorvastatin 80 mg tablet 80 mg PO QPM ondansetron 4 mg tablet,disintegrating 4 mg PO Q6H PRN (Reason: nausea and vomiting) Qty: 20 0RF rkyfhthvpnatakw-oknnlmctz-SP [Bromfed DM] 2-30-10 mg/5 mL syrup 10 ml PO Q6H PRN (Reason: cold symptoms) Qty: 200 0RF doxycycline hyclate 100 mg tablet 100 mg PO BID 7 Days Qty: 14 0RF methylprednisolone [Medrol (Maury)] 4 mg tablets,dose pack See Rx Instructions .ROUTE .COMPLEX Qty: 21 0RF Rx Instructions: Taper as directed ondansetron 4 mg tablet,disintegrating 4 mg PO Q8H PRN (Reason: nausea and vomiting) 4 Days Qty: 14 0RF Instructions: COPD (Chronic Obstructive Pulmonary Disease) (ED) Stand Alone Forms: Portal Instructions Referrals: Cielo Devries MD [Primary Care Provider] - 1 week
--- NOTE | 2023-08-04 22:05 | PC.NURSE ---
Patient with 4 day hx of s.o.b. He says he has been trying to stay home and not go out too much so he does not catch anything, but he has been a smoker for many years and has COPD, so he gets this regularly and has been treated for an exasperation already this winter. He has a nebulizer and inhalers at home but has not been using them. He was hoping to come in here and be treated with steroids in order to avoid getting pneumonia and needing hospitalization. Patient states that he has a cough but it is not worse than his normal cough and there is not more phlegm than normal for him. He is having more wheezing than normal for him, and increased shortness of breath.
[2023-08-04 22:08] LABS: Basophils Percent Auto 0.7 % (0.2-2.0); Eosinophils Absolute Auto 0.2 10^3/uL (0.0-0.7); Eosinophils Percent Auto 4.3 % (0.9-7.0); Hemoglobin 12.1 g/dL (14.0-18.0); Immature Granulocytes Abs Auto 0.02 10^3/uL (0.00-0.03); Immature Granulocytes Pct Auto 0.4 % (0.0-0.5); Lymphocytes Absolute Auto 1.6 10^3/uL (1.2-3.8); Lymphocytes Percent Auto 28.1 % (20.5-60.0); Mean Corpuscular HGB Conc 33.6 g/dL (29.9-35.2); Mean Corpuscular Volume 92.3 fL (80.0-94.0); Monocytes Absolute Auto 0.7 10^3/uL (0.3-0.8); Monocytes Percent Auto 13.2 % (1.7-12.0); Neutrophils Percent Auto 53.3 % (43.0-75.0); Platelet Count 223 10^3/uL (150-450); Red Cell Distribution Width 12.9 % (11.0-15.0); White Blood Count 5.6 10^3/uL (4.0-11.0)
--- NOTE | 2023-08-04 22:12 | ECG_ITS ---
The [facility] Test Date: 2023-08-04 Pat Name: HECTOR HIGHTOWER Department: Room: - Gender: Male Photo Checker: : 1960 Requested By: BROCK MODI Order Number: [id number] Reading MD: ALTAGRACIA MOJICA Measurements Intervals [place] Rate: 71 P: -30 IL: 180 QRS: 34 QRSD: 88 T: 43 QT: 376 QTc: 398 Interpretive Statements 1100 Sinus rhythm 9110 normal ECG Compared to ECG 10/09/2022 22:48:11 Myocardial infarct finding no longer present Electronically Signed On 08-05-2023 7:07:39 EST by ALTAGRACIA MOJICA
[2023-08-04] MEDS: 0.9 % SODIUM CHLORIDE 1,000 ML 1000 ML IV (22:14)
[2023-08-04] MEDS: METHYLPREDNISOLONE SOD SUCC PF 125 MG/2 ML VIAL IVP (22:14)
[2023-08-04] MEDS: MAGNESIUM SULFATE IN WATER 2 GM/50 ML PREMIX IV (22:14)
[2023-08-04] MEDS: ONDANSETRON PF 4 MG/2 ML VIAL IV (22:14)
[2023-08-04 22:25] LABS: Alanine Aminotransferase 40 U/L (16-63); Albumin Globulin Ratio 0.9; Albumin Level 3.4 g/dL (3.4-5.0); Alkaline Phosphatase 74 U/L (46-116); Anion Gap 7.5; Aspartate Amino Transferase 17 U/L (15-37); BUN Creatinine Ratio 14.8; Bilirubin Total 0.3 mg/dL (0.2-1.0); Calcium 9.1 mg/dL (8.5-10.1); Carbon Dioxide 26.5 mmol/L (21.0-32.0); Chloride 102 mmol/L (98-107); Estimated GFR (African America 52 (>=60); Estimated GFR (Non-African Ame 43 (>=60); Globulin 3.7 g/dL; Glucose 136 mg/dL (74-106); Sodium 132 mmol/L (136-145); Total Protein 7.1 g/dL (6.4-8.2); Troponin I High Sensitivity 16.8 pg/mL (4.0-76.1)
[2023-08-04] MEDS: IPRATROPIUM/ALBUTEROL SULFATE 3 ML AMPUL.NEB IH (22:39)
[2023-08-05] VITALS: PULSE 74; RESP 15; O2SAT 96
[2023-08-05 00:01] VITALS: BP 94/52; PULSE 79; RESP 23; O2SAT 96
[2023-08-05 00:10] VITALS: PULSE 73; RESP 18; O2SAT 96
[2023-08-05] MEDS: AZITHROMYCIN 250 MG TABLET 500 MG PO (00:16)
== END 2023-08-05 00:26 | disposition home or self-care (01) ==
PROVIDERS: Emergency Provider Emergency Medicine; PCP Family Medicine
DX: J44.1 Chronic obstructive pulmonary disease with (acute) exacerbation (principal); E78.00 Pure hypercholesterolemia, unspecified; F17.210 Nicotine dependence, cigarettes, uncomplicated; Z79.899 Other long term (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; Z79.82 Long term (current) use of aspirin
CPT/HCPCS: 36415; 71045; 80053; 84484; 85025; 93005; 94640; 96365; 96375; 99285; J2405; J2930; J3475

== ENCOUNTER 2023-09-01 20:47 | Emergency (ER) | payer OTHER, SELFPAY ==
[2023-09-01 20:51] VITALS: BP 145/90; PULSE 86; RESP 18; TEMP 36.4; O2SAT 97; BMI 36.0
--- OUTSIDE RECORDS SUMMARY | 2023-09-01 20:56 | XMS_ITS | CCD ---
Author Name Unknown Address [address] [place] [address] Organization [facility] Care Team Providers Care Baker Head Name Role Phone DO Wagner Marrufo Attending Provider [phone] Brock Modi Unavailable Wagner Marrufo Unavailable DO Wagner Marrufo Attending Provider MD Brock Modi Primary Care Provider [phone] MD Janes Dentq Admit Provider [phone] MD Barbara Rivero Attending Provider [phone] Brock Modi Unavailable Unavailable Unavailable Adi Campos Unavailable ZELALEM Faustin Attending Provider [phone] MD Adi Campos Attending Provider [phone] CAR LIGHT Attending Unavailable KULDEEP, [...] Marrufo Attending Unavailable Farida Berrios Consulting Unavailable Filipe, Galo Admitting Unavailable Barbara Rivero Attending Unavailable Brock Modi Primary Care Unavailable Zeb Webber Consulting Unavailable Mohsen Fernandez Consulting Unavailable Alok Silva Consulting Unavail able Josef Diane Consulting Unavailable Rene Ott Consulting Unavailab Janine Levi Consulting Unavailable Iris Suero Consulting Unavailable Ameya Pierre Consulting Unavailab Abbey Bai Consulting Unavailable Anju Daniel Consulting Unavailable Wilma Blanco Consulting Unavailable Chafrancie, Kamal Admitting Unavailable Chaban Kamal Attending Unavailable Brock Modi Primary Care Unavailable Viral Yang Unavailable Akbar, Dr. Alok Gonzalez Attending Unava ilsobeida Modi, Dr. Brock aCse Primary Care Unav Janine Pace Attending Unavailable Janine Cunha Referring Unavailable Ly, Dr. Brock Case Primary Care Unalacy Modi, Dr. Brock Case Primary Care Unav Janine Pace Attending Unavailable Janine Cunha Referring Unavailable Dr. Brock Modi Primary Care Martin Webber, Dr. Alok Gonzalez Attending Ricardo Webber, Dr. Alok Gonzalez Referring Ricardo Modi, Dr. Brock Case Primary Care CHRISTOPHER Hill Attending Unavailable CHRISTOPHER SEWELL Referring Unavailable BROCK MODI Primary Care Unavailable Brock Modi MD Primary Care Provider Allergies Allergy Classification Reported Allergen(s) Allergy Type Date of Onset Reaction(s) Facility (20 sources) Ciprofloxacin Drug Allergy Nausea & Blurred vision, Comment:nausea and blurred vision [facility] Other (20 sources) Substance with penicillin structure and antibacterial mechanism of action (substance) Drug allergy Edema, Unknown [facility] Other (20 sources) Pneumococcal 7-Zulma Conj Vacc Drug allergy undefined, Comment:pneumo nococcal 23 [facility] Other (17 sources) Penicillins; Translations: [Penicillins] Propensity to adverse reactions 05-29-20 13 Swelling [facility] (8 sources) Pneumococcal vaccine; Translations: [pneumococcal vaccine] Drug Allergy 08-08-19 22 Nausea And Vomiting [facility] (8 sources) Pneumococcal vaccine; Translations: [Pneumococcal Vaccines] Drug Allergy [place] [address] DO Work Phone: (2 sources) Penicillin Drug Allergy 07-29-19 16 Unknown [facility] Other (2 sources) patient allergy list reviewed by nurse or physicia Propensity to adverse reactions 07-29-19 16 Comment:Done [facility] Other (2 sources) Allergies Reconciled Propensity to adverse reactions Unknown [facility] Other (4 sources) Ciprofloxacin; Translations: [CIPROFLOXACIN HCL] Drug Allergy 08-08-19 22 [facility] Medications Current Medications Medication Drug Class(es) Dates Sig (Normalized) Sig (Original) acetaminophen 325 mg oral tablet (6 sources) Start: 10-10-2022 take 2 tablets by mouth every six hours Acetaminophen (Tylenol) 325 mg Tablet Active 650 MG PO Q6H October 10, 2022 12:00am acetaminophen 32 5 mg capsule Take by mouth. 0 Active [employer] - (5 sources) Start: 07-30-2022 [employer] MV - as directed Jul, Active [id number] actuat albuterol 0.09 mg/actuat metered dose inhaler (20 sources) beta2-Adrenerg ic Agonist Start: 10-10-2022 take 1 puff(s) by inhalation every four hours Albuterol Sulfate Active 1 PUFF INHALATION Q4H October 10, 2022 12:00am Start: 07-21-2021 albuterol (PRO VENTIL HFA;VENTOLIN HFA) 90 mcg/actuation inhaler Albuterol Sulfat e (2.5 MG/3ML) 0.083% Inhalation Nebulization Solution USE 1 UNIT DOSE EVERY 4-6 HOURS NEEDED FOR WHEEZING . Quantity: 0 Refills: 0 Ordered: 24-Dec-2022 DO Active Albuterol Sulfat e (2.5 MG/3ML) 0.083% INHALE 1 VIAL VIA NEBULIZER 4 TIMES DAILY NEEDED FOR SHORTNESS OF BREATH OR WHEEZING for 7 Active take 1 puff(s) by mo [facility] every four hours as needed Albuterol Sulfate HFA 108 (90 Base) MCG/ACT INHALE 1 PUFF BY MOUTH EVERY 4 HOURS NEEDED for 30 Active Albuterol Sulfat e (2.5 MG/3ML) 0.083% 3 mL as needed Inhalation every 6 hrs; shortness of breath or wheezing Active ALPRAZolam 1 mg oral tablet (15 sources) Benzodiazepine Start: 06-04-2023 take 1 tablet by mouth twice daily as needed for anxiety ALPRAZolam (XANAX) 1 mg tablet Take 1 tablet (1 mg total) by mouth 2 (two) times a day as needed for anxiety. 0 07/06/2023 Active Start: 04-05-2023 ALPRAZolam 1 M G [...] Aggregation Inhibitor, Nonsteroidal Anti-inflammatory Drug Start: 10-12-2022 aspirin 81 mg chewable tablet Chew 1 tablet (81 mg total) and swallow in the morning. 0 07/09/2023 Active take 1 tablet by da th every twenty-four hours Aspirin 81 81 MG 1 tablet Orally Once a day Active atorvastatin 80 mg oral tablet (11 sources) HMG-CoA Reductase Inhibitor Start: 2023 take 1 tablet by mouth in the morning atorvastatin (LIPITOR) 80 mg tablet Take 1 tablet (80 mg total) by mouth in the morning. 0 2023 Active Start: 10-21-2022 take 1 tablet by da th at bedtime Atorvastatin Calcium 80 MG Oral Tablet TAKE 1 TABLET AT BEDTIME. Quantity: 90 Refills: 3 Ordered: 21-Oct-2022 Janine Wilde Start : 21-Oct-2022 Active azithromycin 250 mg oral tablet (3 sources) Macrolide Antimicrobial Start: 07-31-2021 azithromycin (ZITHROMAX) 250 mg tablet Take 250 mg by mouth. 0 07/31/2021 Active ciprofloxacin 500 mg oral tablet (3 sources) Quinolone Antimicrobial Start: 07-22-2021 take 1 tablet by mouth in the morning, then take 1 tablet by mouth at bedtime ciprofloxacin HCl (CIPRO) 500 mg tablet Take 1 tablet (500 mg total) by mouth in the morning and 1 tablet (500 mg total) before bedtime. 0 07/22/2021 Active Fluticasone Propion-Salmeterol (16 sources) Corticosteroid, beta2-Adrenergic Agonist Start: 10-13-2022 Fluticasone Propion-Salmeterol (Advair Diskus) 250-50 mcg/dose blister with device Active 1 INH INHALATION Twice daily October 13, 2022 12:00am Start: 10-02-2021 Advair [...] 1 puff Inhalation Twice a day Active meloxicam 15 mg oral tablet (8 sources) Nonsteroidal Anti-inflammatory Drug Start: 07-08-2021 meloxicam (MOBIC) 15 mg tablet nebulizer machine (5 sources) nebulizer breanne e 1 kit inhalation 4 times daily Active Nitro Sublingual 0.4 0.4mg (19 sources) Nitro Sublingual 0.4 0.4mg 1 Sublingual Every 5min x3 Active nitroglycerin 0.4 mg sublingual tablet (11 sources) Nitrate Vasodilator Start: 10-12-2022 Nitroglyce rin Active 0.4 MG SUBLINGUAL Q5M October 12, 2022 12:00am do not exceed 3 doses per episode ondansetron 4 mg disintegrating oral tablet (10 sources) Serotonin-3 Receptor Antagonist Start: 07-25-2021 ondansetron ODT (ZOFRAN-ODT) 4 mg disintegrating tablet Start: 07-24-2021 ondansetron (Z OFRAN) 4 mg tablet Zofran Active predniSONE 20 mg oral tablet (10 sources) Start: 02-04-2023 take 2 tablets by mouth every twenty-four hours predniSONE 20 MG 2 tablets Orally Once a day for 5 days Jan, Active Start: 11-12-2022 take 2 tablets by mo uth every twenty-four hours predniSONE 20 MG 2 [...] mg / trimethoprim 160 mg oral tablet (3 sources) Dihydrofolate Reductase Inhibitor Antibacterial, Sulfonamide Antimicrobial take 1 tablet by mouth every twelve hours Bactrim DS 800-160 MG 1 tablet Orally Twice a day for 5 days Active ticagrelor 90 mg oral tablet (20 sources) Start: 2022 take 1 tablet by mouth once BRILINTA 90 mg tablet Take 1 tablet (90 mg total) by mouth every 12 (twelve) hours. 0 06/27/2023 Active Start: 10-12-2022 take 1 tablet by da th twice daily Ticagrelor (Brilinta) 90 mg Tablet Active 90 MG PO Twice daily 180 October 12, 2022 12:00am Brilinta 90mg Ta [...] Drug Class(es) Dates Sig (Normalized) Sig (Original) doxycycline hyclate 100 mg delayed release oral tablet (7 sources) Tetracycline-class Drug take 1 tablet by mouth every twelve hours Doxycycline Hyclate 100 MG 1 tablet Orally Twice a day for 10 days Not-Taking/PRN Fluticasone Propionate (8 sources) Corticosteroid Start: 10-10-2022 End: 03-21-2023 Fluticasone Propionate Discontinued 1 INH INHALATION Twice [...] 10, 2022 12:00am October 13, 2022 12:14pm Start: 02-09-2022 take 1 tablet by da th in the morning losartan (COZAAR) 50 mg tablet Take 1 tablet (50 mg total) by mouth in the morning. 0 02/09/2022 Active metoprolol tartrate 25 mg oral tablet (3 [...] sources) Anxiety; Translations: [Other specified anxiety disorders] Onset: 03-05-2022 Chronic Aortic; peripheral; and visceral artery aneurysms (13 sources) Abdominal aortic aneurysm without rupture; Translations: [Abdominal aortic aneurysm, without rupture, unspecified] Onset: 03-05-2022 08-22-2023 Chronic Asthma (20 sources) Asthma without status asthmaticus; Translations: [Unspecified asthma, uncomplicated] Onset: 03-05-2022 03-05-2022 Chronic Cardiac dysrhythmias (6 sources) EKG: ventricular tachycardia; Translations: [Ventricular tachycardia seen on time clock inspector] 10-11-2022 Chronic Cardiac dysrhythmias (4 sources) Sinus tachycardia; Translations: [Other specified cardiac dysrhythmias] Episodic Chronic obstructive pulmonary disease and bronchiectasis (20 sources) Acute exacerbation of chronic obstructive airways disease; Translations: [Chronic obstructive pulmonary disease with (acute) exacerbation] Onset: 07-29-2015 Chronic Chronic obstructive pulmonary disease and bronchiectasis (12 sources) Bronchitis; Translations: [Bronchitis, not specified as acute or chronic] Episodic Conduction disorders (15 sources) Complete atrioventricular block; Translations: [Atrioventricular block, complete] Onset: 10-10-2022 10-11-2022 Chronic Coronary atherosclerosis and other heart disease (20 sources) Coronary arteriosclerosis; Translations: [Atherosclerotic heart disease of grindstone coronary artery without angina pectoris] Onset: 10-28-2022 Chronic Disorders of lipid metabolism (8 sources) Mixed hyperlipidemia; Translations: [Mixed hyperlipidemia] Chronic Essential hypertension (20 sources) Hypertensive disorder; Translations: [Essential (primary) hypertension] Onset: 03-05-2022 10-10-2022 Chronic Genitourinary symptoms and ill-defined conditions (4 sources) Dysuria; Translations: [Dysuria] Episodic Hypertension with complications and secondary hypertension (1 source) Hypertensive urgency; Translations: [HYPERTENSIVE URGENCY] Onset: 10-13-2022 Chronic Immunizations and screening for infectious disease (19 sources) Vaccination given; Translations: [Encounter for immunization] Episodic Joint disorders and dislocations; trauma-related (20 sources) Derangement of medial meniscus of left knee; Translations: [Other meniscus derangements, unspecified medial meniscus, left knee] Onset: 05-02-2018 03-05-2022 Chronic Osteoarthritis (20 sources) Osteoarthritis of right knee joint; Translations: [Unilateral primary osteoarthritis, right knee] Onset: 03-16-2019 Chronic Other aftercare (1 source) Other [place] [facility] (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; Translations: [OTH RETIREMENT CURRENT DRUG THERAPY] Onset: 10-13-2022 Episodic Other circulatory disease (2 sources) Elevated blood-pressure reading without diagnosis of hypertension; Translations: [Elevated blood-pressure reading, without diagnosis of hypertension] Episodic Other connective tissue disease (20 sources) Muscle pain; Translations: [Myalgia, unspecified site] Episodic Other connective tissue disease (3 sources) [...] 10-10-2022 10-13-2022 Episodic Other lower respiratory disease (1 source) [...] Onset: 05-02-2018 Episodic Other non-traumatic joint disorders (1 source) Hip pain; Translations: [Hip joint pain] Episodic Other nutritional; endocrine; and metabolic disorders (19 sources) Obesity; Translations: [Obesity, unspecified] Chronic Other nutritional; endocrine; and metabolic disorders (4 sources) Obese class I; Translations: [Body mass index (BMI) 32.0-32.9, adult] Chronic Other nutritional; endocrine; and metabolic disorders (6 sources) Body mass index 30+ - obesity; Translations: [Obesity, unspecified] Onset: 03-05-2022 08-22-2023 Chronic Other screening for suspected conditions (not mental disorders or infectious disease) (20 sources) Tomography - chest abnormal; Translations: [Abnormal findings on diagnostic imaging of other specified body structures] Onset: 03-31-2019 03-05-2022 Chronic Mariama-; endo-; and myocarditis; cardiomyopathy (except that caused by tuberculosis or sexually transmitted disease) (8 sources) Cardiomyopathy; Translations: [Other primary cardiomyopathies] Chronic Pleurisy; pneumothorax; pulmonary collapse (20 sources) Atelectasis; Translations: [Atelectasis] Onset: 11-03-2022 Episodic Pneumonia (except that caused by tuberculosis or sexually transmitted disease) (20 sources) Pneumonia; Translations: [Pneumonia, unspecified organism] Episodic Residual codes; unclassified (3 sources) Sleep apnea; Translations: [Sleep apnea, unspecified] 10-11-2022 Chronic Residual codes; unclassified (4 sources) Sleep apnea, unspecified; Translations: [Unspecified sleep apnea] Onset: 10-10-2022 10-13-2022 Chronic Residual codes; unclassified (19 sources) Sleep disorder; Translations: [Other sleep disorders] Chronic Residual codes; unclassified (19 sources) Obstructive sleep apnea syndrome; Translations: [Obstructive sleep apnea (adult) (pediatric)] Chronic Residual codes; unclassified (2 sources) Obstructive sleep apnea (adult) (pediatric) Chronic Residual codes; unclassified (1 source) Other sleep disorders Chronic Residual codes; unclassified (3 sources) Dyssomnia; Translations: [Other sleep disorders] Onset: 07-29-2015 03-05-2022 Chronic Residual codes; unclassified (7 sources) Tobacco use; Translations: [Tobacco use disorder] Onset: 10-10-2022 Episodic Residual codes; unclassified (8 sources) Tobacco user; Translations: [Tobacco use] Onset: 07-29-2015 10-10-2022 Episodic Residual codes; unclassified (18 sources) Tobacco dependence syndrome; Translations: [Tobacco use] Episodic Substance-related disorders (20 sources) 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; Translations: [Nicotine dependence, cigarettes, with unspecified nicotine-induced disorders] Onset: 07-29-2015 Chronic Comment on above: 5-6 cig daily; 8 cigs daily; Unclassified (19 sources) Abdominal aortic aneurysm, without rupture, unspecified; Translations: [Abdominal aortic aneurysm, without rupture, unspecified] Onset: 03-05-2022 Unclassified (1 source) CONTACT W/AND (SUSP) EXPOS [...] Classification Problem Date Documented Da te Episodic/Chronic E Codes: Adverse effects of medical drugs (3 sources) Adverse reaction to bacterial vaccines; Translations: [Adverse effect of other bacterial vaccines, initial encounter] Onset: 05-04-2018 03-05-2022 Episodic Fluid and electrolyte disorders (1 source) Dehydration; Translations: [DEHYDRATION] Onset: 07-16-2022 Episodic Malaise and fatigue (14 sources) Fatigue; Translations: [Other fatigue] Onset: 03-16-2019 03-05-2022 Episodic Nausea and vomiting (20 sources) Nausea; Translations: [Nausea] Onset: 03-05-2022 Episodic Noninfectious gastroenteritis (1 source) Noninfective gastroenteritis and colitis, unspecified; Translations: [NONINFECTIVE GE AND COLITIS UNS] Onset: 07-12-2022 Episodic Other circulatory disease (3 sources) Increased diastolic arterial pressure; Translations: [Elevated blood-pressure reading, without diagnosis of hypertension] Onset: 03-05-2022 03-05-2022 Episodic Other connective tissue disease (20 sources) Spasm; Translations: [Other muscle spasm] Onset: 03-05-2022 03-05-2022 Episodic Other gastrointestinal disorders (1 source) Diarrhea, unspecified; Translations: [DIARRHEA UNSPECIFIED] Onset: 07-16-2022 Episodic Other lower respiratory disease (20 sources) Lung field abnormal; Translations: [Other nonspecific abnormal finding of lung field] Onset: 08-01-2015 03-05-2022 Episodic Other lower respiratory disease (12 sources) Dyspnea on exertion; Translations: [Other forms of dyspnea] Onset: 03-05-2022 03-05-2022 Episodic Other lower respiratory disease (3 sources) Shortness of breath; Translations: [SHORTNESS OF BREATH] Onset: 02-03-2022 Episodic Other lower respiratory disease (3 sources) Lung mass; Translations: [Other nonspecific abnormal finding of lung field] Onset: 03-05-2022 03-05-2022 Episodic Other non-traumatic joint disorders (20 sources) Joint pain; Translations: [Pain in unspecified joint] Onset: 03-05-2022 03-05-2022 Episodic Other non-traumatic joint disorders (2 sources) Arthralgia of the pelvic region and thigh; Translations: [Pain in joint, pelvic region and thigh] Onset: 08-24-2016 Episodic Other non-traumatic joint disorders (3 sources) Pain of right shoulder joint; Translations: [Pain in right shoulder] Onset: 03-05-2022 03-05-2022 Episodic Residual codes; unclassified (14 sources) Contact with and (suspected) exposure to other hazardous substances; Translations: [Exposure to potentially hazardous substance] Onset: 03-05-2022 03-05-2022 Episodic Residual codes; unclassified (2 sources) Dyssomnia; Translations: [Other sleep disturbances] Onset: 07-29-2015 Episodic Screening and history of mental health and substance abuse codes (1 source) Personal history of nicotine dependence; Translations: [PERSONAL HISTORY OF NICOTINE DEPEND] Onset: 07-16-2022 Episodic Septicemia (except in labor) (20 sources) Sepsis; Translations: [Sepsis, unspecified organism] Onset: 03-05-2022 03-05-2022 Episodic Spondylosis; intervertebral disc disorders; other back problems (20 sources) Neck pain; Translations: [Cervicalgia] Onset: 03-05-2022 03-05-2022 Episodic Unclassified (1 source) Adverse effects of other and unspecified bacterial vaccines; Translations: [Adverse effects of other and unspecified bacterial vaccines] Unclassified (1 source) COUGH, UNSPECIFIED; Translations: [COUGH, UNSPECIFIED] Onset: 07-05-2022 Unclassified (3 sources) Abdominal aortic aneurysm (AAA) without rupture, unspecified part I71.40 Results Test Name Value Interpretation Reference Range Facility Office Visit (Cardiology)on 12-24-2022 Follow-up visit Diagnoses/Problems Assessed Coronary artery disease involving grindstone coronary artery of grindstone heart without angina pectoris (414.01) (I25.10) Preoperative [...] we can help. You may also call 9-020-FBNMNOW for free resources and assistance.; Status:Complete - [...] December. 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 Based on current guidelines and most recent literature, this is an appropriate indication to withdraw antiplatelet therapy and proceed with urgent endobronchial biopsy for diagnostic purposes, notably his [place] stents that were recently placed have have [...] MG Sublingu (more content not included)... Normal [employer] Tobacco Screening.on 023 Fall risk assessment c) Not medically indicated -[facility] 250 DO Work Phone: Tobacco use status [facility] a) Yes [facility] 250 DO Work Phone: Tobacco Screening. Yes [facility] 250 DO Work Phone: CT chest w conon 11-03-2022 CT chest w [facility] [place] [id number] CT Scan Report Signed Patient: Hector Gaspar SR MR#: [id number] 187 : 1960 Acct:[id number] Age/Sex: 62 / M ADM Date: 11/03/22 Loc: CT Room: Type: [facility] Attending Dr: Adi Campos MD Copies to: [...] Layton Jr., D.OEhsan11/03/2022 2:03 PM Dictation Location: [place] [address] Transcribed By: [facility] 11/03/22 1403 Dictated By: Parrish Layton Jr, DO 11/03/22 1358 Signed By: 11/03/22 1403 [facility] Cardiovasc Arrhythmia Result son 11-02-2022 Cardiovasc Arrhythmia Results Reason For Visit Reason for Visit: Holter Monitor: HECTOR is here for the application of a 48 hour Holter monitor. Ordering Physician: JANINE CUNHA Diagnosis: CAD SINUS PAUSE [facility] equipment agreement signed. HECTOR understands monitor is to be returned on: 11-03-22 Monitor number [id number] applied. Holter monitor returned and downloaded. Procedure Holter monitor printed and placed on Dr. Fernandez desk to dictate for Dr. Webber. 1?the [...] symptomatic Diagnosis/Problems Assessed Coronary artery disease involving grindstone coronary artery of grindstone heart without angina pectoris (414.01) (I25.10) Sinus pause (426.6) (I45.5) Future Appointments Date/TimeProviderSpecialt ySite 01/19/2023 02:30 Alok [place] DOCardiology703 [facility] 2 Jonathan 250 DO Signatures Electronically signed by : Mallory Fan MA; Nov 02 2022 2:10PM EST (Author) Electronically signed by : Mohsen Fernandez MD; Nov 08 2022 5:34PM EST (Author) Normal [employer] Basic Metabolic Panelon 04-0 Anion gap [Moles/Vol] 11.6 mmol/L Normal 6.0-15.0 [facility] Comment on above: Order Comment: PT NO T FASTING Performed By: #### C MP, MG, HS TROP, A1C WTH eA, LIPID, CBC #### [facility] [address] Calcium [Mass/Vol] 9.5 mg/dL Normal 8.6-10.3 [facility] Comment on above: Order Comment: PT NO T FASTING Result Comment: PERF ORMED BY: [facility] [address] [place] [address] PATHOLOGIST DOVETAIL MACHINE OPERATOR JIANLAN SUN M.D. Performed By: #### C MP, MG, HS TROP, A1C WTH eA, LIPID, CBC #### [facility] [address] [place] [address] [place] Chloride [Moles/Vol] 107 mmol/L Normal 98-107 [facility] Comment on above: Order Comment: PT NO T FASTING Performed By: #### C MP, MG, HS TROP, A1C WTH eA, LIPID, CBC #### [facility] [address] [place] [address] [place] CO2 [Moles/Vol] 25.8 mmol/L Normal 21.0-31.0 [facility] Comment on above: Order Comment: PT NO T FASTING Performed By: #### C MP, MG, HS TROP, A1C WTH eA, LIPID, CBC #### [facility] [address] Creatinine [Mass/Vol] 1.16 mg/dL Normal 0.70-1.30 [facility] Comment on above: Order Comment: PT NO T FASTING Performed By: #### C MP, MG, HS TROP, A1C WTH eA, LIPID, CBC #### [facility] [address] [place] [address] [place] GFR/1.73 sq M.predicted MDRD (S/P/Bld) [Vol rate/Area] mL/min/{1.73_m2} [facility] Comment on above: Order Comment: PT NO T FASTING Performed By: #### C MP, MG, HS TROP, A1C WTH eA, LIPID, CBC #### [facility] [address] Glucose [Mass/Vol] 100 mg/dL Normal 70-100 [facility] Comment on above: Order Comment: PT NO T FASTING Result Comment: [place] Glucose Reference Range is dependent on time and content of last meal. Glucose of more than 200 mg/dL in a nonstressed, ambulatory subject supports the diagnosis of Diabetes Mellitus. ADA recommended reference range Performed By: #### C MP, MG, HS TROP, A1C WTH eA, LIPID, CBC #### [facility] [address] [place] [address] [place] Potassium [Moles/Vol] 4.4 mmol/L Normal 3.5-5.1 [facility] Comment on above: Order Comment: PT NO T FASTING Performed By: #### C MP, MG, HS TROP, A1C WTH eA, LIPID, CBC #### [facility] [address] [place] [id number] [place] Sodium [Moles/Vol] 140 mmol/L Normal 136-145 [facility] Comment on above: Order Comment: PT NO T FASTING Performed By: #### C MP, MG, HS TROP, A1C WTH eA, LIPID, CBC #### [facility] [address] [place] [id number] [place] Urea nitrogen [Mass/Vol] 27 mg/dL High 7-25 [facility] Comment on above: Order Comment: PT NO T FASTING Performed By: #### C MP, MG, HS TROP, A1C WTH eA, LIPID, CBC #### [facility] [address] [place] [address] [place] Calcium [Mass/volume] in Ser um or PlasmaOrdered By: Janine Cunha on 10-28-2022 Calcium [Mass/Vol] 9.5 mg/dL 8.6-10.3 [facility] Carbon dioxide, total [Moles /volume] in Serum or PlasmaOrdered By: Janine Cunha on 10-28-2022 CO2 [Moles/Vol] 25.8 mmol/L 21.0-31.0 [facility] Chloride [Moles/volume] in S lisa or PlasmaOrdered By: Janine Cunha on 10-28-2022 Chloride [Moles/Vol] 107 mmol/L 98-107 [facility] Creatinine [Mass/volume] in Serum or PlasmaOrdered By: Janine Cunha on 10-28-2022 Creatinine [Mass/Vol] 1.16 mg/dL 0.70-1.30 [facility] Glucose [Mass/volume] in Ser um or PlasmaOrdered By: Janine Cunha on 10-28-2022 Glucose [Mass/Vol] 100 mg/dL 70-100 [facility] Comment on above: ADA recommended refe rence rangeRandom Glucose Reference Range is dependent on time and content of last meal. Glucose of more than 200 mg/dL in a nonstressed, ambulatory subject supports the diagnosis of Diabetes Mellitus. No Panel InformationOrdered By: Janine Cunha on 10-28-2022 Estimated GFR (CKD-EPI) > 60.0 mL/Min [facility] Creatinine Clearance (Chem N/A [facility] No Panel Informationon 10-28 > 60.0 Normal [facility] 600 DO Work Phone: [phone] 11.6\S\11.6 Normal 6.0-15.0 [facility] 600 DO Work Phone: [phone] 9.5\S\9.5 Normal 8.6-10.3 [facility] 600 DO Work Phone: Comment on above: PERFORMED BY:[place] [address] [place], [place] [id number] MEDICAL DIRECTORJANETTE DE LA FUENTE M.D. 25.8\S\25.8 Normal 21.0-31.0 [facility] 600 DO Work Phone: [phone] 107\S\107 Normal 98-107 [facility] Work Phone: [phone] 4.4\S\4.4 Normal 3.5-5.1 [facility] DO Work Phone: [phone] 140\S\140 Normal 136-145 [facility] 600 DO Work Phone: [phone] 1.16\S\1.16 Normal 0.70-1.30 [facility] 600 DO Work Phone: [phone] 27\S\27 above high threshold 7-25 [facility] DO Work Phone: [phone] 100\S\100 Normal 70-100 [facility] 600 DO Work Phone: [phone] Comment on above: Random Glucose Refer ence Range is dependent on time and content of last meal. Glucose of more than 200 mg/dL in a nonstressed, ambulatory subject supports the diagnosis of Diabetes Mellitus. ADA recommended reference range Potassium [Moles/volume] in Serum or PlasmaOrdered By: Janine Cunha on 10-28-2022 Potassium [Moles/Vol] 4.4 mmol/L 3.5-5.1 [facility] Serum or plasma anion gap de terminationOrdered By: Janine Cunha on 10-28-2022 Anion gap [Moles/Vol] 11.6 mmol/L 6.0-15.0 [facility] Sodium [Moles/volume] in Ser um or PlasmaOrdered By: Janine Cunha on 10-28-2022 Sodium [Moles/Vol] 140 mmol/L 136-145 [facility] Urea nitrogen [Mass/volume] in Serum or PlasmaOrdered By: Janine Cunha on 10-28-2022 Urea nitrogen [Mass/Vol] 27 mg/dL 7-25 [facility] Tobacco Screening.on 023 Adult depression screening assessment No [facility] 250 DO Work Phone: Fall risk assessment a) No falls within the last year [facility] 250 DO Work Phone: Tobacco use status CP a) Yes [facility] 250 DO Work Phone: Tobacco Screening. Yes [facility] 250 DO Work Phone: B-Type Natriuretic Peptideon 10-12-2022 Natriuretic peptide B (Bld) [Mass/Vol] 91.0 pg/mL Normal 5-100 [facility] Comment on above: Result Comment: PERF ORMED BY: [facility] [address] [place] [address] PATHOLOGIST DOVETAIL MACHINE OPERATOR JANETTE DE LA FUENTE M.D. Performed By: #### C MP, MG, HS TROP, A1C WTH eA, LIPID, CBC #### [facility] [address] Basic Metabolic Panelon 09-24 Anion gap [Moles/Vol] 12.0 mmol/L Normal 6.0-15.0 [facility] Comment on above: Performed By: #### B MP, MG, BNP #### [facility] [address] Calcium [Mass/Vol] 9.0 mg/dL Normal 8.6-10.3 [facility] Comment on above: Performed By: #### B MP, MG, BNP #### [facility] [address] [place] [address] [place] Chloride [Moles/Vol] 107 mmol/L Normal 98-107 [facility] Comment on above: Performed By: #### B MP, MG, BNP #### [facility] [address] CO2 [Moles/Vol] 25.2 mmol/L Normal 21.0-31.0 [facility] Comment on above: Performed By: #### B MP, MG, BNP #### [facility] [address] [place] [address] [place] Creatinine [Mass/Vol] 1.09 mg/dL Normal 0.70-1.30 [facility] Comment on above: Performed By: #### B MP, MG, BNP #### [facility] [address] [place] [address] [place] Creatinine Clr Calc Pharmacy 79.69 [facility] Comment on above: Performed By: #### B MP, MG, BNP #### [facility] [address] [place] [address] [place] GFR/1.73 sq M.predicted MDRD (S/P/Bld) [Vol rate/Area] mL/min/{1.73_m2} [facility] Comment on above: Performed By: #### B MP, MG, BNP #### [facility] [address] [place] [address] [place] Glucose [Mass/Vol] 100 mg/dL Normal 74-109 [facility] Comment on above: Result Comment: [facility] Glucose Reference Range is dependent on time and content of last meal. Glucose of more than 200 mg/dL in a nonstressed, ambulatory subject supports the diagnosis of Diabetes Mellitus. ADA recommended reference range Performed By: #### B MP, MG, BNP #### [facility] [address] Potassium [Moles/Vol] 4.2 mmol/L Normal 3.5-5.1 [facility] Comment on above: Performed By: #### B MP, MG, BNP #### [facility] [address] Sodium [Moles/Vol] 140 mmol/L Normal 136-145 [facility] Comment on above: Performed By: #### B MP, MG, BNP #### [facility] [address] Urea nitrogen [Mass/Vol] 23 mg/dL Normal 7-25 [facility] Comment on above: Performed By: #### B MP, MG, BNP #### [facility] [address] Calcium [Mass/volume] in Ser um or PlasmaOrdered By: Rubén Tatum on 10-12-2022 Calcium [Mass/Vol] 9.0 mg/dL 8.6-10.3 [facility] Carbon dioxide, total [Moles /volume] in Serum or PlasmaOrdered By: Rubén Tatum on 10-12-2022 CO2 [Moles/Vol] 25.2 mmol/L 21.0-31.0 [facility] Chloride [Moles/volume] in S lisa or PlasmaOrdered By: Rubén Tatum on 10-12-2022 Chloride [Moles/Vol] 107 mmol/L 98-107 [facility] Creatinine [Mass/volume] in Serum or PlasmaOrdered By: Rubén Tatum on 10-12-2022 Creatinine [Mass/Vol] 1.09 mg/dL 0.70-1.30 [facility] Glucose [Mass/volume] in Ser um or PlasmaOrdered By: Rubén Tatum on 10-12-2022 Glucose [Mass/Vol] 100 mg/dL 74-109 [facility] Comment on above: ADA recommended refe rence rangeRandom Glucose Reference Range is dependent on time and content of last meal. Glucose of more than 200 mg/dL in a nonstressed, ambulatory subject supports the diagnosis of Diabetes Mellitus. Laboratory - Chemistry and C hemistry - challengeOrdered By: Rubén Tatum on 10-12-2022 GFR/1.73 sq M.predicted MDRD (S/P/Bld) [Vol rate/Area] mL/min/{1.73_m2} [facility] Magnesiumon 10-12-2022 Magnesium [Mass/Vol] 2.2 mg/dL Normal 1.9-2.7 [facility] Comment on above: Result Comment: PERF ORMED BY: [place] [address] PATHOLOGIST DOVETAIL MACHINE OPERATOR JANETTE DE LA FUENTE M.D. Performed By: #### B MP, MG, BNP #### [address] Magnesium [Mass/volume] in S lisa or PlasmaOrdered By: Rubén Tatum on 10-12-2022 Magnesium [Mass/Vol] 2.2 mg/dL 1.9-2.7 [facility] Natriuretic peptide B [Mass/ Vol]Ordered By: Rubén Tatum on 10-12-2022 Natriuretic peptide B (Bld) [Mass/Vol] 91.0 pg/mL 5-100 [facility] No Panel InformationOrdered By: Rubén Tatum on 10-12-2022 Pharmacy Creatinine Clearance (Chem 79.69 [facility] Potassium [Moles/volume] in Serum or PlasmaOrdered By: Rubén Tatum on 10-12-2022 Potassium [Moles/Vol] 4.2 mmol/L 3.5-5.1 [facility] Serum or plasma anion gap de terminationOrdered By: Rubén Tatum on 10-12-2022 Anion gap [Moles/Vol] 12.0 mmol/L 6.0-15.0 [facility] Sodium [Moles/volume] in Ser um or PlasmaOrdered By: Rubén Tatum on 10-12-2022 Sodium [Moles/Vol] 140 mmol/L 136-145 [facility] Urea nitrogen [Mass/volume] in Serum or PlasmaOrdered By: Rubén Tatum on 10-12-2022 Urea nitrogen [Mass/Vol] 23 mg/dL 7-25 [facility] A1C with Estimated Average G leidan 10-11-2022 Glucose [Mass/Vol] 120 mg/dL Normal [facility] Comment on above: Result Comment: PERF ORMED BY: [facility] [address] [place] [address] PATHOLOGIST DOVETAIL MACHINE OPERATOR JANETTE DE LA FUENTE M.D. Performed By: #### C MP, MG, HS TROP, A1C WTH eA, LIPID, CBC #### [facility] [address] HbA1c (Bld) [Mass fraction] 5.8 % High 4.3-5.6 [facility] Comment on above: Result Comment: Incr eased risk for diabetes: 5.7 - 6.4 diabetes: >6.4 glycemic control for adults with diabetes: <7.0 Performed By: #### C MP, MG, HS TROP, A1C WTH eA, LIPID, CBC #### [facility] [address] Alanine aminotransferase [En zymatic activity/volume] in Serum or PlasmaOrdered By: Rubén Tatum on 10-11-2022 ALT [Catalytic activity/Vol] 18 U/L 7-52 [facility] Albumin [Mass/volume] in Ser um or Plasma by Bromocresol green (BCG) dye binding methoOrdered By: Rubén Tatum on 10-11-2022 Albumin BCG dye [Mass/Vol] 3.9 g/dL 3.5-5.7 [facility] Alkaline phosphatase [Enzyma tic activity/volume] in Serum or PlasmaOrdered By: Rubén Tatum on 10-11-2022 ALP [Catalytic activity/Vol] 46 U/L 34-104 [facility] Aspartate aminotransferase [ Enzymatic activity/volume] in Serum or PlasmaOrdered By: Rubén Tatum on 10-11-2022 AST [Catalytic activity/Vol] 30 U/L 13-39 [facility] B-Type Natriuretic Peptideon 10-11-2022 Natriuretic peptide B (Bld) [Mass/Vol] 157.0 pg/mL High 5-100 [facility] Comment on above: Result Comment: PERF ORMED BY: [facility] [address] [place] [address] PATHOLOGIST DOVETAIL MACHINE OPERATOR JANETTE DE LA FUENTE M.D. Performed By: #### C MP, MG, HS TROP, A1C WTH eA, LIPID, CBC #### [facility] [address] Basophils Auto (Bld) [#/Vol] Ordered By: Galo Dent on 10-11-2022 Basophils (Bld) [#/Vol] 0.0 10*3/uL 0.0-0.2 [facility] Basophils/100 WBC Auto (Bld) Ordered By: Galo Dent on 10-11-2022 Basophils/100 WBC (Bld) 0.5 % . [facility] Bilirubin.total [Mass/volume ] in Serum or PlasmaOrdered By: Rubén Tatum on 10-11-2022 Bilirubin [Mass/Vol] 0.4 mg/dL 0.3-1.0 [facility] Cholesterol [Mass/volume] in Serum or PlasmaOrdered By: Rubén Tatum on 10-11-2022 Cholesterol [Mass/Vol] 221 mg/dL 140-200 [facility] Comment on above: Chol less than 200 m g/dl low riskChol 201-239 mg/dl borderline riskChol 240 mg/dl and greater high risk Cholesterol in LDL Calc [Mas s/Vol]Ordered By: Rubén Tatum on 10-11-2022 Cholesterol in LDL [Mass/Vol] 149 mg/dL 0-100 [facility] Comment on above: LDL ATP III CLASSIFI CATIONLDL less than 100 mg/dL OptimalLDL 100-129 mg/dL Near or above optimalLDL 130-159 mg/dL Borderline highLDL 160-189 mg/dL HighLDL greater than 189 mg/dL Very high Cholesterol in VLDL Calc [Ma ss/Vol]Ordered By: Rubén Tatum on 10-11-2022 Cholesterol in VLDL [Mass/Vol] 30 mg/dL [facility] Complete Blood Count Auto Di ffon 10-11-2022 Basophils (Bld) [#/Vol] 0.0 10*3/uL Normal 0.0-0.2 [facility] Comment on above: Result Comment: PERF ORMED BY: [place] [address] PATHOLOGIST DOVETAIL MACHINE OPERATOR JANETTE DE LA FUENTE M.D. Performed By: #### C MP, MG, HS TROP, A1C WTH eA, LIPID, CBC #### [address] Basophils/100 WBC (Bld) 0.5 % Normal . [facility] Comment on above: Performed By: #### C MP, MG, HS TROP, A1C WTH eA, LIPID, CBC #### [address] Eosinophils (Bld) [#/Vol] 0.2 10*3/uL Normal 0.0-0.45 [facility] Comment on above: Performed By: #### C MP, MG, HS TROP, A1C WTH eA, LIPID, CBC #### [address] Eosinophils/100 WBC (Bld) 3.7 % Normal . [facility] Comment on above: Performed By: #### C MP, MG, HS TROP, A1C WTH eA, LIPID, CBC #### [address] Erythrocyte distribution width (RBC) [Ratio] 14.9 % High 12.0-14.8 [facility] Comment on above: Performed By: #### C MP, MG, HS TROP, A1C WTH eA, LIPID, CBC #### [address] Hematocrit (Bld) [Volume fraction] 37.7 % Low 38.8-50.0 [facility] Comment on above: Performed By: #### C MP, MG, HS TROP, A1C WTH eA, LIPID, CBC #### [address] Hemoglobin (Bld) [Mass/Vol] 12.7 g/dL Low 13.0-17.0 [facility] Comment on above: Performed By: #### C MP, MG, HS TROP, A1C WTH eA, LIPID, CBC #### [address] Lymphocytes (Bld) [#/Vol] 1.4 10*3/uL Normal 1.00-4.8 [facility] Comment on above: Performed By: #### C MP, MG, HS TROP, A1C WTH eA, LIPID, CBC #### [address] Lymphocytes/100 WBC (Bld) 21.8 % Normal . [facility] Comment on above: Performed By: #### C MP, MG, HS TROP, A1C WTH eA, LIPID, CBC #### [address] MCH (RBC) [Entitic mass] 30.1 pg Normal 27.5-35.2 [facility] Comment on above: Performed By: #### C MP, MG, HS TROP, A1C WTH eA, LIPID, CBC #### [address] MCV (RBC) [Entitic vol] 89.4 fL Normal 83.5-101 [facility] Comment on above: Performed By: #### C MP, MG, HS TROP, A1C WTH eA, LIPID, CBC #### [address] Mean Corpuscular HGB Conc 33.7 g/dL Normal 32.5-35.6 [facility] Comment on above: Performed By: #### C MP, MG, HS TROP, A1C WTH eA, LIPID, CBC #### [address] Monocytes (Bld) [#/Vol] 0.7 10*3/uL Normal 0.0-0.8 [facility] Comment on above: Performed By: #### C MP, MG, HS TROP, A1C WTH eA, LIPID, CBC #### [address] Monocytes/100 WBC (Bld) 10.2 % Normal . [facility] Comment on above: Performed By: #### C MP, MG, HS TROP, A1C WTH eA, LIPID, CBC #### [address] Neutrophils (Bld) [#/Vol] 4.2 10*3/uL Normal 1.8-7.7 [facility] Comment on above: Performed By: #### C MP, MG, HS TROP, A1C WTH eA, LIPID, CBC #### [address] Neutrophils/100 WBC (Bld) 63.8 % Normal . [facility] Comment on above: Performed By: #### C MP, MG, HS TROP, A1C WTH eA, LIPID, CBC #### [address] NRBC% 0.1 /100{WBC} Normal 0-0.5 [facility] Comment on above: Performed By: #### C MP, MG, HS TROP, A1C WTH eA, LIPID, CBC #### [address] Platelet mean volume (Bld) [Entitic vol] 7.3 fL Normal 6.6-10.1 [facility] Comment on above: Performed By: #### C MP, MG, HS TROP, A1C WTH eA, LIPID, CBC #### [place] [address] [place] Platelets (Bld) [#/Vol] 203 10*3/uL Normal 150-450 [facility] Comment on above: Performed By: #### C MP, MG, HS TROP, A1C WTH eA, LIPID, CBC #### [place] [address] [place] RBC (Bld) [#/Vol] 4.21 10*6/uL Normal 3.90-5.60 [facility] Comment on above: Performed By: #### C MP, MG, HS TROP, A1C WTH eA, LIPID, CBC #### [place] [address] [place] WBC (Bld) [#/Vol] 6.6 10*3/uL Normal 4.1-10.5 [facility] Comment on above: Performed By: #### C MP, MG, HS TROP, A1C WTH eA, LIPID, CBC #### [facility] [address] Comprehensive Metabolic Pane weston 10-11-2022 Albumin [Mass/Vol] 3.9 g/dL Normal 3.5-5.7 [facility] Comment on above: Order Comment: FASTI NG Y Performed By: #### C MP, MG, HS TROP, A1C WTH eA, LIPID, CBC #### [facility] [address] Albumin/Globulin [Mass ratio] 1.6 {ratio} Normal [facility] Comment on above: Order Comment: FASTI NG Y Performed By: #### C MP, MG, HS TROP, A1C WTH eA, LIPID, CBC #### [facility] [address] ALP [Catalytic activity/Vol] 46 U/L Normal 34-104 [facility] Comment on above: Order Comment: FASTI NG Y Performed By: #### C MP, MG, HS TROP, A1C WTH eA, LIPID, CBC #### [address] ALT [Catalytic activity/Vol] 18 U/L Normal 7-52 [facility] Comment on above: Order Comment: FASTI NG Y Performed By: #### C MP, MG, HS TROP, A1C WTH eA, LIPID, CBC #### [facility] [address] Anion gap [Moles/Vol] 10.3 mmol/L Normal 6.0-15.0 [facility] Comment on above: Order Comment: FASTI NG Y Performed By: #### C MP, MG, HS TROP, A1C WTH eA, LIPID, CBC #### [facility] [address] AST [Catalytic activity/Vol] 30 U/L Normal 13-39 [facility] Comment on above: Order Comment: FASTI NG Y Performed By: #### C MP, MG, HS TROP, A1C WTH eA, LIPID, CBC #### [facility] [address] Bilirubin [Mass/Vol] 0.4 mg/dL Normal 0.3-1.0 [facility] Comment on above: Order Comment: FASTI NG Y Performed By: #### C MP, MG, HS TROP, A1C WTH eA, LIPID, CBC #### [facility] [address] Calcium [Mass/Vol] 8.9 mg/dL Normal 8.6-10.3 [facility] Comment on above: Order Comment: FASTI NG Y Performed By: #### C MP, MG, HS TROP, A1C WTH eA, LIPID, CBC #### [facility] [address] Chloride [Moles/Vol] 109 mmol/L High 98-107 [facility] Comment on above: Order Comment: FASTI NG Y Performed By: #### C MP, MG, HS TROP, A1C WTH eA, LIPID, CBC #### [facility] [address] CO2 [Moles/Vol] 23.7 mmol/L Normal 21.0-31.0 [facility] Comment on above: Order Comment: FASTI NG Y Performed By: #### C MP, MG, HS TROP, A1C WTH eA, LIPID, CBC #### [facility] [address] Creatinine [Mass/Vol] 1.00 mg/dL Normal 0.70-1.30 [facility] Comment on above: Order Comment: FASTI NG Y Performed By: #### C MP, MG, HS TROP, A1C WTH eA, LIPID, CBC #### [facility] [address] Creatinine Clr Calc Pharmacy 86.86 Normal [facility] Comment on above: Order Comment: FASTI NG Y Performed By: #### C MP, MG, HS TROP, A1C WTH eA, LIPID, CBC #### [facility] [address] GFR/1.73 sq M.predicted MDRD (S/P/Bld) [Vol rate/Area] mL/min/{1.73_m2} [facility] Comment on above: Order Comment: FASTI NG Y Performed By: #### C MP, MG, HS TROP, A1C WTH eA, LIPID, CBC #### [facility] [address] Globulin (S) [Mass/Vol] 2.5 g/dL [facility] Comment on above: Order Comment: FASTI NG Y Performed By: #### C MP, MG, HS TROP, A1C WTH eA, LIPID, CBC #### [facility] [address] Glucose [Mass/Vol] 96 mg/dL Normal 74-109 [facility] Comment on above: Order Comment: FASTI NG Y Result Comment: [facility] Glucose Reference Range is dependent on time and content of last meal. Glucose of more than 200 mg/dL in a nonstressed, ambulatory subject supports the diagnosis of Diabetes Mellitus. ADA recommended reference range Performed By: #### C MP, MG, HS TROP, A1C WTH eA, LIPID, CBC #### [facility] [address] Potassium [Moles/Vol] 4.0 mmol/L Normal 3.5-5.1 [facility] Comment on above: Order Comment: FASTI NG Y Performed By: #### C MP, MG, HS TROP, A1C WTH eA, LIPID, CBC #### [facility] [address] Protein [Mass/Vol] 6.4 g/dL Normal 6.4-8.9 [facility] Comment on above: Order Comment: FASTI NG Y Performed By: #### C MP, MG, HS TROP, A1C WTH eA, LIPID, CBC #### [facility] [address] [place] [address] [place] Sodium [Moles/Vol] 139 mmol/L Normal 136-145 [facility] Comment on above: Order Comment: FASTI NG Y Performed By: #### C MP, MG, HS TROP, A1C WTH eA, LIPID, CBC #### [facility] [address] [place] [address] [place] Urea nitrogen [Mass/Vol] 17 mg/dL Normal 7-25 [facility] Comment on above: Order Comment: FASTI NG Y Performed By: #### C MP, MG, HS TROP, A1C WTH eA, LIPID, CBC #### [facility] [address] ECG 12 lead ECGon 10-11-2022 ECG 12 lead ECG [facility] [place] [address] [place] [address] Electrocardiograph Report Signed Patient: Hector Gaspar SR MR#: [id number] : 1960 Acct:[id number] Age/Sex: 62 / M ADM Date: 10/10/22 Loc: Room: [address] [place] [address] Type: ADM IN Attending Dr: Barbara Rivero [...] By Edilson Cruz DO 10/11 1133 Normal [facility] Eosinophils Auto (Bld) [#/Vo l]Ordered By: Galo Dent on 10-11-2022 Eosinophils (Bld) [#/Vol] 0.2 10*3/uL 0.0-0.45 [facility] Eosinophils/100 WBC Auto (Bl d)Ordered By: Galo Dent on 10-11-2022 Eosinophils/100 WBC (Bld) 3.7 % . [facility] Erythrocyte distribution wid th Auto (RBC) [Ratio]Ordered By: Galo Dent on 10-11-2022 Erythrocyte distribution width (RBC) [Ratio] 14.9 % 12.0-14.8 [facility] Globulin Calc (S) [Mass/Vol] Ordered By: Rubén Tatum on 10-11-2022 Globulin (S) [Mass/Vol] 2.5 g/dL [facility] Glucose mean value [Mass/vol ume] in Blood Estimated from glycated hemoglobinOrdered By: Galo Dent on 10-11-2022 Average glucose Estimated from glycated hemoglobin (Bld) [Mass/Vol] 120 mg/dL [facility] Hematocrit Auto (Bld) [Volum e fraction]Ordered By: Galo Dent on 10-11-2022 Hematocrit (Bld) [Volume fraction] 37.7 % 38.8-50.0 [facility] Hemoglobin A1c percentageOrd ered By: Galo Dent on 10-11-2022 HbA1c (Bld) [Mass fraction] 5.8 % 4.3-5.6 [facility] Comment on above: Increased risk for d iabetes: 5.7 - 6.4diabetes: >6.4glycemic control for adults with diabetes: <7.0 Hemoglobin [Mass/volume] in BloodOrdered By: Galo Dent on 10-11-2022 Hemoglobin (Bld) [Mass/Vol] 12.7 g/dL 13.0-17.0 [facility] Laboratory - CoagulationOrde red By: Galo Dent on 10-11-2022 PT Coag (PPP) [Time] 11.3 s 9.0-12.9 [facility] Leukocytes [#/volume] correc kal for nucleated erythrocytes in Blood by Automated counOrdered By: Galo Dent on 10-11-2022 WBC corrected for nucl RBC Auto (Bld) [#/Vol] 6.6 10*3/uL 4.1-10.5 [facility] Lipid Panelon 10-11-2022 Cholesterol [Mass/Vol] 221 mg/dL High 140-200 [facility] Comment on above: Order Comment: KYLEI EVERETT Y Result Comment: Chol less than 200 mg/dl low risk Chol 201-239 mg/dl borderline risk Chol 240 mg/dl and greater high risk Performed By: #### C MP, MG, HS TROP, A1C WTH eA, LIPID, CBC #### [facility] [address] Cholesterol in HDL [Mass/Vol] 42 mg/dL Normal 29-71 [facility] Comment on above: Order Comment: FASTI NG Y Result Comment: HDL CHOL ATP-III CLASSIFICATION Cardiovascular Risk HDL > or equal to 60 mg/dL LOW HDL < 40 mg/dL HIGH Performed By: #### C MP, MG, HS TROP, A1C WTH eA, LIPID, CBC #### [facility] [address] Cholesterol.total/Chol esterol in HDL [Mass ratio] 5.3 {ratio} Normal <5.0 [facility] Comment on above: Order Comment: TONIA NG Y Result Comment: PERF ORMED BY: [place] [address] PATHOLOGIST DOVETAIL MACHINE OPERATOR JANETTE DE LA FUENTE M.D. Performed By: #### C MP, MG, HS TROP, A1C WTH eA, LIPID, CBC #### [facility] [address] LDL Cholesterol,Calculated 149 mg/dL High 0-100 [facility] Comment on above: Order Comment: FASTI NG Y Result Comment: LDL ATP III CLASSIFICATION LDL less than 100 mg/dL Optimal LDL 100-129 mg/dL Near or above optimal LDL 130-159 mg/dL Borderline high LDL 160-189 mg/dL High LDL greater than 189 mg/dL Very high Performed By: #### C MP, MG, HS TROP, A1C WTH eA, LIPID, CBC #### [facility] [address] [place] [id number] [place] Triglyceride w/Reflex 152 mg/dL High 0-149 [facility] Comment on above: Order Comment: FASTI NG Y Result Comment: TRIG ATP III CLASSIFICATION TRIG less than 150 mg/dL Normal TRIG 150-199 mg/dL Borderline high TRIG 200-500 mg/dL High TRIG greater than 500 mg/dL Very high Standard traceable to the Center for Disease Conrtrol and Prevention (CDC) test method. Performed By: #### C MP, MG, HS TROP, A1C WTH eA, LIPID, CBC #### [facility] [address] VLDL CHOLESTEROL 30 mg/dL Normal [facility] Comment on above: Order Comment: FASTI NG Y Performed By: #### C MP, MG, HS TROP, A1C WTH eA, LIPID, CBC #### [facility] [address] Lymphocytes Auto (Bld) [#/Vo l]Ordered By: Galo Dent on 10-11-2022 Lymphocytes (Bld) [#/Vol] 1.4 10*3/uL 1.00-4.8 [facility] Lymphocytes/100 WBC Auto (Bl d)Ordered By: Galo Dent on 10-11-2022 Lymphocytes/100 WBC (Bld) 21.8 % . [facility] MCH Auto (RBC) [Entitic mass ]Ordered By: Galo Dent on 10-11-2022 MCH (RBC) [Entitic mass] 30.1 pg 27.5-35.2 [facility] MCHC Auto (RBC) [Mass/Vol]Or dered By: Galo Dent on 10-11-2022 MCHC (RBC) [Mass/Vol] 33.7 g/dL 32.5-35.6 [facility] MCV Auto (RBC) [Entitic vol] Ordered By: Galo Dent on 10-11-2022 MCV (RBC) [Entitic vol] 89.4 fL 83.5-101 [facility] Magnesiumon 10-11-2022 Magnesium [Mass/Vol] 2.0 mg/dL Normal 1.9-2.7 [facility] Comment on above: Order Comment: FASTI NG Y Performed By: #### C MP, MG, HS TROP, A1C WTH eA, LIPID, CBC #### [facility] [address] [place] [id number] [facility] Monocytes Auto (Bld) [#/Vol] Ordered By: Galo Dent on 10-11-2022 Monocytes (Bld) [#/Vol] 0.7 10*3/uL 0.0-0.8 [facility] Monocytes/100 WBC Auto (Bld) Ordered By: Galo Dent on 10-11-2022 Monocytes/100 WBC (Bld) 10.2 % . [facility] Neutrophils Auto (Bld) [#/Vo l]Ordered By: Galo Dent on 10-11-2022 Neutrophils (Bld) [#/Vol] 4.2 10*3/uL 1.8-7.7 [facility] Neutrophils/100 WBC Auto (Bl d)Ordered By: Galo eDnt on 10-11-2022 Neutrophils/100 WBC (Bld) 63.8 % . [facility] Nucleated erythrocytes [Pres ence] in Blood by Automated countOrdered By: Galo Dent on 10-11-2022 Nucleated RBC Auto Ql (Bld) 0.1 /100{WBC} 0-0.5 [facility] Platelet mean volume Auto (B ld) [Entitic vol]Ordered By: Galo Dent on 10-11-2022 Platelet mean volume (Bld) [Entitic vol] 7.3 fL 6.6-10.1 [facility] Platelet poor plasma interna tional normalized ratio (INR) by coagulation assay (relatOrdered By: Galo Dent on 10-11-2022 INR Coag (PPP) [Relative time] 1.0 {INR} [facility] Comment on above: INR Therapeutic Rang e [...] 10-11-2022 Platelets (Bld) [#/Vol] 203 10*3/uL 150-450 [facility] Protein [Mass/volume] in Ser um or PlasmaOrdered By: Rubén Tatum on 10-11-2022 Protein [Mass/Vol] 6.4 g/dL 6.4-8.9 [facility] Prothrombin Time INRon 10-11 INR Coag (PPP) [Relative time] 1.0 {INR} Normal [facility] Comment on above: Result Comment: INR Therapeutic [...] heart valves: 3 - 4.5 PERFORMED BY: [place] [address] PATHOLOGIST DOVETAIL MACHINE OPERATOR JANETTE DE LA FUENTE M.D. Performed By: #### C MP, MG, HS TROP, A1C WTH eA, LIPID, CBC #### [facility] [address] PT Coag (PPP) [Time] 11.3 s Normal 9.0-12.9 [facility] Comment on above: Performed By: #### C MP, MG, HS TROP, A1C WTH eA, LIPID, CBC #### [facility] [address] RBC Auto (Bld) [#/Vol]Ordere d By: Galo Dent on 10-11-2022 RBC (Bld) [#/Vol] 4.21 10*6/uL 3.90-5.60 [facility] Serum or plasma albumin/glob ulin mass ratioOrdered By: Rubén Tatum on 10-11-2022 Albumin/Globulin [Mass ratio] 1.6 {ratio} [facility] Serum or plasma high density lipoprotein (HDL) cholesterol measurementOrdered By: Rubén Tatum on 10-11-2022 Cholesterol in HDL [Mass/Vol] 42 mg/dL 29-71 [facility] Comment on above: HDL CHOL ATP-III CLA SSIFICATION Cardiovascular RiskHDL > or equal to 60 mg/dL LOWHDL < 40 mg/dL HIGH Serum or plasma total choles terol/high density lipoprotein (HDL) cholesterol mass ratOrdered By: Rubén Tatum on 10-11-2022 Cholesterol.total/Chol esterol in HDL [Mass ratio] 5.3 {ratio} <5.0 [facility] Triglyceride [Mass/volume] i n Serum or PlasmaOrdered By: Rubén Tatum on 10-11-2022 Triglyceride [Mass/Vol] 152 mg/dL 0-149 [facility] Comment on above: TRIG ATP III CLASSIF ICATIONTRIG less than 150 mg/dL NormalTRIG 150-199 mg/dL Borderline highTRIG 200-500 mg/dL High TRIG greater than 500 mg/dL Very highStandard traceable to the Center for Disease Conrtrol and Prevention (CDC) test method. Troponin I High Sensitivityo n 10-11-2022 Troponin I High Sensitivity 3965.8 pg/mL Off scale high 0.0-20.0 [facility] Comment on above: Result Comment: Crit ical Result : Called to and read back by: HECTOR LOCO at: 10/11/2022 06:45:50 by:[id number] PERFORMED BY: [place] [address] PATHOLOGIST DOVETAIL MACHINE OPERATOR JANETTE DE LA FUENTE M.D. Performed By: #### C MP, MG, HS TROP, A1C WTH eA, LIPID, CBC #### [address] Troponin I.cardiac [Mass/vol ume] in Serum or Plasma by Detection limit <= 0.01 ng/Ordered By: Rubén Tatum on 10-11-2022 Troponin I.cardiac DL <= 0.01 ng/mL [Mass/Vol] 3965.8 pg/mL 0.0-20.0 [facility] Comment on above: Critical Result : Ca lled to and read back by: HECTOR LOCO at: 10/11/2022 06:45:50 by:[id number] WBC Auto (Bld) [#/Vol]Ordere d By: Galo Dent on 10-11-2022 WBC (Bld) [#/Vol] 6.6 10*3/uL 4.1-10.5 [facility] XR chest 2V*on 10-11-2022 XR chest 2V* [facility] [place] [address] [place] [address] XRay Report Signed Patient: Hector Gaspar SR MR#: [id number] : 1960 Acct:[id number] Age/Sex: 62 / M ADM Date: 10/10/22 Loc: Room: [address] [place] [address] Type: ADM IN Attending Dr: Barbara Rivero [...] Arlin Villafana M.D.10/11/2022 2:29 PM Dictation Location: [place] [address] Transcribed By: [facility] 10/11/22 142 Dictated By: Arlin Villafana II, MD 10/11/22 142 Signed By: 10/11/22 142 Normal [facility] A1C with Estimated Average G tom 10-10-2022 Glucose [Mass/Vol] 117 mg/dL Normal [facility] Comment on above: Result Comment: PERF ORMED BY: [address] [address] PATHOLOGIST DOVETAIL MACHINE OPERATOR JANETTE DE LA FUENTE M.D. Performed By: #### C MP, MG, HS TROP, A1C WTH eA, LIPID, CBC #### [facility] [address] HbA1c (Bld) [Mass fraction] 5.7 % High 4.3-5.6 [facility] Comment on above: Result Comment: Incr eased risk for diabetes: 5.7 - 6.4 diabetes: >6.4 glycemic control for adults with diabetes: <7.0 Performed By: #### C MP, MG, HS TROP, A1C WTH eA, LIPID, CBC #### [facility] [address] [place] [id number] [facility] AMYLASEon 10-10-2022 Amylase [Catalytic activity/Vol] 40 U/L Normal 25-115 [facility] Comment on above: Performed By: #### A MY, CMP, LIPA #### [facility] [address] [address] [address] Carrington Chandler Activated partial thrombopla stin time (aPTT) in platelet poor plasma by coagulation aOrdered By: Galo Dent on 10-10-2022 aPTT Coag (PPP) [Time] 35.9 s 25.1-36.5 [facility] CARDIAC ARLIN ADMITon 023 CK [Catalytic activity/Vol] 530 U/L Critically high 39-308 [facility] Comment on above: Performed By: #### A MY, CMP, LIPA #### [facility] [address] [address] [address] Carrington Chandler CK.MB [Mass/Vol] 60.47 ng/mL Critically high <=3.60 [facility] Comment on above: Performed By: #### A MY, CMP, LIPA #### [facility] [address] [address] [address] Carringtno Chandler HSTROP 9166.1 pg/mL Critically high 4.0-76.1 [facility] Comment on above: Result Comment: CUT- OFF POINTS HAVE BEEN ESTABLISHED BASED ON THE FOURTH UNIVERSAL DEFINITIONS OF MYOCARDIAL INFARCTION. THE UPPER REFERENCE LIMIT (URL) OF TROPONIN, DEFINED THE 99TH PERCENTILE OF cTnI DISTRIBUTION IN A REFERENCE POPULATION, HAS BEEN CONFIRMED THE DECISION THRESHOLD FOR MD DIAGNOSIS. Performed By: #### A MY, CMP, LIPA #### [facility] [address] [address] [address] Carrington Chandler SAULO 108 ng/mL Critically high 16-96 [facility] Comment on above: Performed By: #### A MY, CMP, LIPA #### [facility] [address] [place] [address] [address] Carrington Chandler CBC AUTO DIFFon 10-10-2022 BASO # 0.0 103/ul Normal 0.0-0.1 [facility] Comment on above: Performed By: #### B MP #### [facility] [address] [place] [address] Dr. Carrington Chandler Basophils/100 WBC (Bld) 0.4 % Normal 0.2-2.0 [facility] Comment on above: Performed By: #### B MP #### [facility] [address] [place] [address] Dr. Carrington Chandler EO # 0.3 103/ul Normal 0.0-0.7 [facility] Comment on above: Performed By: #### B MP #### [facility] [address] [place] [address] Dr. Carrington Chandler Eosinophils/100 WBC (Bld) 4.9 % Normal 0.9-7.0 [facility] Comment on above: Performed By: #### B MP #### [facility] [address] [place] [address] Dr. Carrington Chandler Erythrocyte distribution width (RBC) [Ratio] 13.8 % Normal 11.0-15.0 [facility] Comment on above: Performed By: #### B MP #### [facility] [address] [place] [address] Dr. Carrington Chandler Hematocrit (Bld) [Volume fraction] 38.1 % Critically low 42.0-54.0 [facility] Comment on above: Performed By: #### B MP #### [facility] [address] [place] [address] Dr. Carrington Chandler Hemoglobin (Bld) [Mass/Vol] 13.1 g/dL Critically low 14.0-18.0 [facility] Comment on above: Performed By: #### B MP #### [facility] [address] [place] [address] Dr. Carrington Chandler IG # 0.01 10e3/ul Normal 0.00-0.03 [facility] Comment on above: Performed By: #### B MP #### [facility] [address] [place] [address] Dr. Carrington Chandler IG % 0.2 % Normal 0.0-0.5 [facility] Comment on above: Performed By: #### B MP #### [facility] [address] [place] [address] Dr. Carrington Chandler LYMPH # 1.8 103/ul Normal 1.2-3.8 [facility] Comment on above: Performed By: #### B MP #### [facility] [address] [place] [address] Dr. Carrington Chandler Lymphocytes/100 WBC (Bld) 33.5 % Normal 20.5-60.0 [facility] Comment on above: Performed By: #### B MP #### [facility] [address] [place] [address] Dr. Carrington Chandler MANUAL DIFF REQ NO Normal [facility] Comment on above: Performed By: #### B MP #### [facility] [address] [place] [address] Dr. Carrington Chandler MCH (RBC) [Entitic mass] 30.7 pg Normal 25.9-34.0 [facility] Comment on above: Performed By: #### B MP #### [facility] [address] [place] [address] Dr. Carrington Chandler MCHC (RBC) [Mass/Vol] 34.4 g/dL Normal 29.9-35.2 [facility] Comment on above: Performed By: #### B MP #### [facility] [address] [place] [address] Dr. Carrington Chandler MCV (RBC) [Entitic vol] 89.2 fL Normal 80.0-94.0 [facility] Comment on above: Performed By: #### B MP #### [facility] [address] [place] [address] Dr. Carrington Chandler MONO # 0.6 103/ul Normal 0.3-0.8 [facility] Comment on above: Performed By: #### B MP #### [facility] [address] [place] [address] Dr. Carrington Chandler Monocytes/100 WBC (Bld) 11.8 % Normal 1.7-12.0 [facility] Comment on above: Performed By: #### B MP #### [facility] [address] [place] [address] Dr. Carrington Chandler NEUT # 2.6 103/ul Normal 1.4-6.5 [facility] Comment on above: Performed By: #### B MP #### [facility] [address] [place] [address] Dr. Carrington Chandler Neutrophils/100 WBC (Bld) 49.2 % Normal 43.0-75.0 [facility] Comment on above: Performed By: #### B MP #### [facility] [address] [place] [address] Dr. Carrington Chandler Platelet mean volume (Bld) [Entitic vol] 9.2 fL Critically low 9.5-13.5 [facility] Comment on above: Performed By: #### B MP #### [facility] [address] [place] [address] Dr. Carrington Chandler PLT 213 103/ul Normal 150-450 [facility] Comment on above: Performed By: #### B MP #### [facility] [address] [place] [address] Dr. Carrington Chandler RBC 4.27 106/ul Critically low 4.70-6.10 [facility] Comment on above: Performed By: #### B MP #### [facility] [address] [place] [address] Dr. Carrington Chandler WBC 5.4 103/ul Normal 4.0-11.0 [facility] Comment on above: Performed By: #### B MP #### [facility] [address] [address] [address] Carrington Chandler Complete Blood Count Auto Di ffon 10-10-2022 Basophils (Bld) [#/Vol] 0.0 10*3/uL Normal 0.0-0.2 [facility] Comment on above: Result Comment: PERF ORMED BY: [place] [address] PATHOLOGIST DOVETAIL MACHINE OPERATOR JANETTE DE LA FUENTE M.D. Performed By: #### C MP, MG, HS TROP, A1C WTH eA, LIPID, CBC #### [address] Basophils/100 WBC (Bld) 0.6 % Normal . [facility] Comment on above: Performed By: #### C MP, MG, HS TROP, A1C WTH eA, LIPID, CBC #### [address] Eosinophils (Bld) [#/Vol] 0.2 10*3/uL Normal 0.0-0.45 [facility] Comment on above: Performed By: #### C MP, MG, HS TROP, A1C WTH eA, LIPID, CBC #### [address] Eosinophils/100 WBC (Bld) 4.4 % Normal . [facility] Comment on above: Performed By: #### C MP, MG, HS TROP, A1C WTH eA, LIPID, CBC #### [address] Erythrocyte distribution width (RBC) [Ratio] 14.6 % Normal 12.0-14.8 [facility] Comment on above: Performed By: #### C MP, MG, HS TROP, A1C WTH eA, LIPID, CBC #### [address] Hematocrit (Bld) [Volume fraction] 36.7 % Low 38.8-50.0 [facility] Comment on above: Performed By: #### C MP, MG, HS TROP, A1C WTH eA, LIPID, CBC #### [address] Hemoglobin (Bld) [Mass/Vol] 12.5 g/dL Low 13.0-17.0 [facility] Comment on above: Performed By: #### C MP, MG, HS TROP, A1C WTH eA, LIPID, CBC #### [address] Lymphocytes (Bld) [#/Vol] 1.4 10*3/uL Normal 1.00-4.8 [facility] Comment on above: Performed By: #### C MP, MG, HS TROP, A1C WTH eA, LIPID, CBC #### [address] Lymphocytes/100 WBC (Bld) 27.5 % Normal . [facility] Comment on above: Performed By: #### C MP, MG, HS TROP, A1C WTH eA, LIPID, CBC #### [address] MCH (RBC) [Entitic mass] 30.3 pg Normal 27.5-35.2 [facility] Comment on above: Performed By: #### C MP, MG, HS TROP, A1C WTH eA, LIPID, CBC #### [address] MCV (RBC) [Entitic vol] 88.8 fL Normal 83.5-101 [facility] Comment on above: Performed By: #### C MP, MG, HS TROP, A1C WTH eA, LIPID, CBC #### [address] Mean Corpuscular HGB Conc 34.1 g/dL Normal 32.5-35.6 [facility] Comment on above: Performed By: #### C MP, MG, HS TROP, A1C WTH eA, LIPID, CBC #### [address] Monocytes (Bld) [#/Vol] 0.6 10*3/uL Normal 0.0-0.8 [facility] Comment on above: Performed By: #### C MP, MG, HS TROP, A1C WTH eA, LIPID, CBC #### [facility] [address] Monocytes/100 WBC (Bld) 11.4 % Normal . [facility] Comment on above: Performed By: #### C MP, MG, HS TROP, A1C WTH eA, LIPID, CBC #### [facility] [address] Neutrophils (Bld) [#/Vol] 2.9 10*3/uL Normal 1.8-7.7 [facility] Comment on above: Performed By: #### C MP, MG, HS TROP, A1C WTH eA, LIPID, CBC #### [address] Neutrophils/100 WBC (Bld) 56.1 % Normal . [facility] Comment on above: Performed By: #### C MP, MG, HS TROP, A1C WTH eA, LIPID, CBC #### [facility] [address] [place] [address] NRBC% 0.1 /100{WBC} Normal 0-0.5 [facility] Comment on above: Performed By: #### C MP, MG, HS TROP, A1C WTH eA, LIPID, CBC #### [address] Platelet mean volume (Bld) [Entitic vol] 7.2 fL Normal 6.6-10.1 [facility] Comment on above: Performed By: #### C MP, MG, HS TROP, A1C WTH eA, LIPID, CBC #### [facility] [address] [place] [address] [place] Platelets (Bld) [#/Vol] 199 10*3/uL Normal 150-450 [facility] Comment on above: Performed By: #### C MP, MG, HS TROP, A1C WTH eA, LIPID, CBC #### [facility] [address] [place] [address] [place] RBC (Bld) [#/Vol] 4.13 10*6/uL Normal 3.90-5.60 [facility] Comment on above: Performed By: #### C MP, MG, HS TROP, A1C WTH eA, LIPID, CBC #### [facility] [address] [place] [address] [place] WBC (Bld) [#/Vol] 5.1 10*3/uL Normal 4.1-10.5 [facility] Comment on above: Performed By: #### C MP, MG, HS TROP, A1C WTH eA, LIPID, CBC #### [facility] [address] [place] [address] [place] Basophils (Bld) [#/Vol] 0.0 10*3/uL Normal 0.0-0.2 [facility] Comment on above: Result Comment: PERF ORMED BY: [place] [address] PATHOLOGIST DOVETAIL MACHINE OPERATOR JANETTE DE LA FUENTE M.D. Performed By: #### P T, CBC #### [place] [address] [place] Basophils/100 WBC (Bld) 0.6 % Normal . [facility] Comment on above: Performed By: #### P T, CBC #### [address] Eosinophils (Bld) [#/Vol] 0.2 10*3/uL Normal 0.0-0.45 [facility] Comment on above: Performed By: #### P T, CBC #### [place] [address] [place] Eosinophils/100 WBC (Bld) 4.6 % Normal . [facility] Comment on above: Performed By: #### P T, CBC #### [address] Erythrocyte distribution width (RBC) [Ratio] 14.9 % High 12.0-14.8 [facility] Comment on above: Performed By: #### P T, CBC #### [address] [address] [place] Hematocrit (Bld) [Volume fraction] 36.2 % Low 38.8-50.0 [facility] Comment on above: Performed By: #### P T, CBC #### [address] Hemoglobin (Bld) [Mass/Vol] 12.4 g/dL Low 13.0-17.0 [facility] Comment on above: Performed By: #### P T, CBC #### [address] Lymphocytes (Bld) [#/Vol] 1.4 10*3/uL Normal 1.00-4.8 [facility] Comment on above: Performed By: #### P T, CBC #### [address] Lymphocytes/100 WBC (Bld) 28.1 % Normal . [facility] Comment on above: Performed By: #### P T, CBC #### [address] MCH (RBC) [Entitic mass] 30.3 pg Normal 27.5-35.2 [facility] Comment on above: Performed By: #### P T, CBC #### [address] MCV (RBC) [Entitic vol] 88.5 fL Normal 83.5-101 [facility] Comment on above: Performed By: #### P T, CBC #### [address] Mean Corpuscular HGB Conc 34.2 g/dL Normal 32.5-35.6 [facility] Comment on above: Performed By: #### P T, CBC #### [address] Monocytes (Bld) [#/Vol] 0.6 10*3/uL Normal 0.0-0.8 [facility] Comment on above: Performed By: #### P T, CBC #### [address] [place] [address] [place] Monocytes/100 WBC (Bld) 11.6 % Normal . [facility] Comment on above: Performed By: #### P T, CBC #### [address] Neutrophils (Bld) [#/Vol] 2.8 10*3/uL Normal 1.8-7.7 [facility] Comment on above: Performed By: #### P T, CBC #### [address] Neutrophils/100 WBC (Bld) 55.1 % Normal . [facility] Comment on above: Performed By: #### P T, CBC #### [address] NRBC% 0.1 /100{WBC} Normal 0-0.5 [facility] Comment on above: Performed By: #### P T, CBC #### [address] Platelet mean volume (Bld) [Entitic vol] 7.5 fL Normal 6.6-10.1 [facility] Comment on above: Performed By: #### P T, CBC #### [address] Platelets (Bld) [#/Vol] 201 10*3/uL Normal 150-450 [facility] Comment on above: Performed By: #### P T, CBC #### [facility] [address] [place] [address] RBC (Bld) [#/Vol] 4.09 10*6/uL Normal 3.90-5.60 [facility] Comment on above: Performed By: #### P T, CBC #### [facility] [address] [place] [address] WBC (Bld) [#/Vol] 5.1 10*3/uL Normal 4.1-10.5 [facility] Comment on above: Performed By: #### P T, CBC #### [address] [address] [place] Comprehensive Metabolic Pane weston 10-10-2022 Albumin [Mass/Vol] 4.1 g/dL Normal 3.5-5.7 [facility] Comment on above: Performed By: #### C MP, MG, HS TROP, A1C WTH eA, LIPID, CBC #### [facility] [address] Albumin/Globulin [Mass ratio] 1.6 {ratio} Normal [facility] Comment on above: Performed By: #### C MP, MG, HS TROP, A1C WTH eA, LIPID, CBC #### [address] ALP [Catalytic activity/Vol] 47 U/L Normal 34-104 [facility] Comment on above: Performed By: #### C MP, MG, HS TROP, A1C WTH eA, LIPID, CBC #### [address] ALT [Catalytic activity/Vol] 20 U/L Normal 7-52 [facility] Comment on above: Performed By: #### C MP, MG, HS TROP, A1C WTH eA, LIPID, CBC #### [address] Anion gap [Moles/Vol] 9.5 mmol/L Normal 6.0-15.0 [facility] Comment on above: Performed By: #### C MP, MG, HS TROP, A1C WTH eA, LIPID, CBC #### [facility] [address] [place] [address] AST [Catalytic activity/Vol] 48 U/L High 13-39 [facility] Comment on above: Performed By: #### C MP, MG, HS TROP, A1C WTH eA, LIPID, CBC #### [address] Bilirubin [Mass/Vol] 0.4 mg/dL Normal 0.3-1.0 [facility] Comment on above: Performed By: #### C MP, MG, HS TROP, A1C WTH eA, LIPID, CBC #### [address] [place] [address] [place] Calcium [Mass/Vol] 9.1 mg/dL Normal 8.6-10.3 [facility] Comment on above: Performed By: #### C MP, MG, HS TROP, A1C WTH eA, LIPID, CBC #### [facility] [address] Chloride [Moles/Vol] 108 mmol/L High 98-107 [facility] Comment on above: Performed By: #### C MP, MG, HS TROP, A1C WTH eA, LIPID, CBC #### [facility] [address] CO2 [Moles/Vol] 25.6 mmol/L Normal 21.0-31.0 [facility] Comment on above: Performed By: #### C MP, MG, HS TROP, A1C WTH eA, LIPID, CBC #### [facility] [address] [place] [address] Creatinine [Mass/Vol] 1.04 mg/dL Normal 0.70-1.30 [facility] Comment on above: Performed By: #### C MP, MG, HS TROP, A1C WTH eA, LIPID, CBC #### [address] Creatinine Clr Calc Pharmacy 83.69 [facility] Comment on above: Performed By: #### C MP, MG, HS TROP, A1C WTH eA, LIPID, CBC #### [address] GFR/1.73 sq M.predicted MDRD (S/P/Bld) [Vol rate/Area] mL/min/{1.73_m2} [facility] Comment on above: Performed By: #### C MP, MG, HS TROP, A1C WTH eA, LIPID, CBC #### [facility] [address] [place] [address] Globulin (S) [Mass/Vol] 2.6 g/dL [facility] Comment on above: Performed By: #### C MP, MG, HS TROP, A1C WTH eA, LIPID, CBC #### [facility] [address] Glucose [Mass/Vol] 102 mg/dL Normal 74-109 [facility] Comment on above: Result Comment: [facility] Glucose Reference Range is dependent on time and content of last meal. Glucose of more than 200 mg/dL in a nonstressed, ambulatory subject supports the diagnosis of Diabetes Mellitus. ADA recommended reference range Performed By: #### C MP, MG, HS TROP, A1C WTH eA, LIPID, CBC #### [facility] [address] [place] [address] [place] Potassium [Moles/Vol] 4.1 mmol/L Normal 3.5-5.1 [facility] Comment on above: Performed By: #### C MP, MG, HS TROP, A1C WTH eA, LIPID, CBC #### [facility] [address] Protein [Mass/Vol] 6.7 g/dL Normal 6.4-8.9 [facility] Comment on above: Performed By: #### C MP, MG, HS TROP, A1C WTH eA, LIPID, CBC #### [facility] [address] [place] [address] [place] Sodium [Moles/Vol] 139 mmol/L Normal 136-145 [facility] Comment on above: Performed By: #### C MP, MG, HS TROP, A1C WTH eA, LIPID, CBC #### [facility] [address] [place] [address] [place] Urea nitrogen [Mass/Vol] 18 mg/dL Normal 7-25 [facility] Comment on above: Performed By: #### C MP, MG, HS TROP, A1C WTH eA, LIPID, CBC #### [facility] [address] [place] [address] [place] ECG 12 lead ECGon 10-10-2022 ECG 12 lead ECG [facility] [place] [address] [place] [address] Electrocardiograph Report Signed Patient: Hector Gaspar MR#: [id number] 187 : 1960 Acct:[id number] Age/Sex: 62 / M ADM Date: 10/10/22 Loc: Room: [address] [place] [address] Type: ADM IN Attending Dr: Barbara Rivero [...] By Edilson Cruz DO 10/11 1132 Normal [facility] ECG 12 lead ECG [facility] [place] [address] Electrocardiograph Report Signed Patient: Hector Gaspar SR MR#: [id number] 187 : 1960 Acct:[id number] Age/Sex: 62 / M ADM Date: 10/10/22 Loc: Room: [address] [place] [address] Type: ADM IN Attending Dr: Barbara Rivero [...] By Edilson Cruz DO 10/10 1203 Normal [facility] echo transthoracicon [facility] echo transthoracic [facility] [place] [address] [place] [address] Echocardiogram Signed Patient: Hector Gaspar SR MR#: [id number] 187 : 1960 Acct:[id number] Age/Sex: 62 / M ADM Date: 10/10/22 Loc: Room: [address] [place] [address] Type: ADM IN Attending Dr: Barbara Rivero MD Ordering Provider: Galo Dent MD Date of Service: 10/10/22 [facility] echo transthoracic: NSTMI Copies to: Mohsen Fernandez MD, [facility] Galo Dent MD Weight: 224 lb Performed [...] Performed At: 10/10/22 0914 Signed By: Mohsen Fernandez MD, [facility] 10/10/22 1406 [facility] LIPASEon 10-10-2022 Lipase [Catalytic activity/Vol] 212.0 U/L Normal 73.0-393.0 [facility] Comment on above: Performed By: #### A MY, CMP, LIPA #### [facility] [address] [address] [address] Carrington Chandler Lipid Panelon 10-10-2022 Cholesterol [Mass/Vol] 235 mg/dL High 140-200 [facility] Comment on above: Result Comment: Chol less than 200 mg/dl low risk Chol 201-239 mg/dl borderline risk Chol 240 mg/dl and greater high risk Performed By: #### C MP, MG, HS TROP, A1C WTH eA, LIPID, CBC #### [address] Cholesterol in HDL [Mass/Vol] 48 mg/dL Normal 29-71 [facility] Comment on above: Result Comment: HDL CHOL ATP-III CLASSIFICATION Cardiovascular Risk HDL > or equal to 60 mg/dL LOW HDL < 40 mg/dL HIGH Performed By: #### C MP, MG, HS TROP, A1C WTH eA, LIPID, CBC #### [facility] [address] Cholesterol.total/Chol esterol in HDL [Mass ratio] 4.9 {ratio} Normal <5.0 [facility] Comment on above: Result Comment: PERF ORMED BY: [place] [address] PATHOLOGIST DOVETAIL MACHINE OPERATOR JANETTE DE LA FUENTE M.D. Performed By: #### C MP, MG, HS TROP, A1C WTH eA, LIPID, CBC #### [address] LDL Cholesterol,Calculated 164 mg/dL High 0-100 [facility] Comment on above: Result Comment: LDL ATP III CLASSIFICATION LDL less than 100 mg/dL Optimal LDL 100-129 mg/dL Near or above optimal LDL 130-159 mg/dL Borderline high LDL 160-189 mg/dL High LDL greater than 189 mg/dL Very high Performed By: #### C MP, MG, HS TROP, A1C WTH eA, LIPID, CBC #### [address] Triglyceride w/Reflex 116 mg/dL Normal 0-149 [facility] Comment on above: Result Comment: TRIG ATP III CLASSIFICATION TRIG less than 150 mg/dL Normal TRIG 150-199 mg/dL Borderline high TRIG 200-500 mg/dL High TRIG greater than 500 mg/dL Very high Standard traceable to the Center for Disease Conrtrol and Prevention (CDC) test method. Performed By: #### C MP, MG, HS TROP, A1C WTH eA, LIPID, CBC #### [facility] [address] VLDL CHOLESTEROL 23 mg/dL Normal [facility] Comment on above: Performed By: #### C MP, MG, HS TROP, A1C WTH eA, LIPID, CBC #### [facility] [address] [place] [id number] [facility] Magnesiumon 10-10-2022 Magnesium [Mass/Vol] 2.0 mg/dL Normal 1.9-2.7 [facility] Comment on above: Performed By: #### C MP, MG, HS TROP, A1C WTH eA, LIPID, CBC #### [facility] [address] [place] [id number] [facility] PROF 14(COMP METB)on 023 Albumin [Mass/Vol] 3.9 g/dL Normal 3.4-5.0 [facility] Comment on above: Performed By: #### A MY, CMP, LIPA #### [facility] [address] [address] [address] Carrington Chandler Albumin/Globulin [Mass ratio] 1.2 {ratio} Normal [facility] Comment on above: Performed By: #### A MY, CMP, LIPA #### [facility] [address] [address] [address] Carrington Chandler ALP [Catalytic activity/Vol] 67 U/L Normal 46-116 [facility] Comment on above: Performed By: #### A MY, CMP, LIPA #### [facility] [address] [address] [address] Carrington Chandler ALT [Catalytic activity/Vol] 30 U/L Normal 16-63 [facility] Comment on above: Performed By: #### A MY, CMP, LIPA #### [facility] [address] [address] [address] Carrington Chandler Anion gap [Moles/Vol] 12.8 mmol/L Normal [facility] Comment on above: Performed By: #### A MY, CMP, LIPA #### [facility] [address] [address] [address] Carrington Chandler AST [Catalytic activity/Vol] 58 U/L Critically high 15-37 [facility] Comment on above: Performed By: #### A MY, CMP, LIPA #### [facility] [address] [address] [address] Carrington Chandler Bilirubin [Mass/Vol] 0.3 mg/dL Normal 0.2-1.0 [facility] Comment on above: Performed By: #### A MY, CMP, LIPA #### [facility] [address] [place] [address] Dr. Carrington Chandler Calcium [Mass/Vol] 8.9 mg/dL Normal 8.5-10.1 [facility] Comment on above: Performed By: #### A MY, CMP, LIPA #### [facility] [address] [address] [address] Carrington Chandler Chloride [Moles/Vol] 101 mmol/L Normal 98-107 [facility] Comment on above: Performed By: #### A MY, CMP, LIPA #### [facility] [address] [place] [address] Dr. Carrington Chandler CO2 [Moles/Vol] 26.0 mmol/L Normal 21.0-32.0 [facility] Comment on above: Performed By: #### A MY, CMP, LIPA #### [facility] [address] [place] [address] Dr. Carrington Chandler Creatinine [Mass/Vol] 0.98 mg/dL Normal 0.70-1.30 [facility] Comment on above: Performed By: #### A MY, CMP, LIPA #### [facility] [address] [place] [address] Dr. Carrington Chandler EGFR-AF [place] >60 Normal >=60 [facility] Comment on above: Performed By: #### A MY, CMP, LIPA #### [facility] [address] [place] [address] Dr. Carrington Chandler EGFR-NON AF [place] >60 Normal >=60 [facility] Comment on above: Performed By: #### A MY, CMP, LIPA #### [facility] [address] [place] [address] Dr. Carrington Chandler Globulin (S) [Mass/Vol] 3.2 g/dL Normal [facility] Comment on above: Performed By: #### A MY, CMP, LIPA #### [facility] [address] [place], [place] [id number] Dr. Carrington Chandler Glucose [Mass/Vol] 101 mg/dL Normal 74-106 [facility] Comment on above: Performed By: #### A MY, CMP, LIPA #### [facility] [address] [place] [address] Dr. Carrington Chandler Potassium [Moles/Vol] 3.8 mmol/L Normal 3.5-5.1 [facility] Comment on above: Performed By: #### A MY, CMP, LIPA #### [facility] [address] [place] [address] Dr. Carrington Chandler Protein [Mass/Vol] 7.1 g/dL Normal 6.4-8.2 [facility] Comment on above: Performed By: #### A MY, CMP, LIPA #### [facility] [address] [place] [address] Dr. Carrington Chandler Sodium [Moles/Vol] 136 mmol/L Normal 136-145 [facility] Comment on above: Performed By: #### A MY, CMP, LIPA #### [facility] [address] [address] [address] Carrington Chandler Urea nitrogen [Mass/Vol] 19.0 mg/dL Critically high 7.0-18.0 [facility] Comment on above: Performed By: #### A MY, CMP, LIPA #### [facility] [address] [place] [address] Dr. Carrington Chandler Urea nitrogen/Creatinine [Mass ratio] 19.4 mg/mg Normal [facility] Comment on above: Performed By: #### A MY, CMP, LIPA #### [facility] [address] [place] [address] Dr. Carrington Chandler PROTIMEon 10-10-2022 INR Coag (PPP) [Relative time] {INR} Normal [facility] Comment on above: Performed By: #### B MP #### [facility] [address] [place] [address] Dr. Carrington Chandler INR GUIDELINES SEE BELOW Normal [facility] Comment on above: Result Comment: LYNDON RED INR: 2.0 - 3.0 CONDITIONS NOT LISTED BELOW 2.5 - 3.5 FOR PROSTHETIC HEART VALVE REPLACEMENT 2.5 - 3.5 RECURRENT THROMBOSIS Performed By: #### B MP #### [facility] [address] [place] [address] Dr. Carrington Chandler PT Coag (PPP) [Time] 9.7 s Normal 9.0-11.6 [facility] Comment on above: Performed By: #### B MP #### [facility] [address] [place] [address] Dr. Carrington Chandler PTTon 10-10-2022 aPTT Coag (Bld) [Time] 29.5 s Normal 22.3-36.2 [facility] Comment on above: Performed By: #### B MP #### [facility] [address] [place] [address] Dr. Carrington Chandler Partial Thromboplastin Timeo n 10-10-2022 aPTT Coag (Bld) [Time] 35.9 s Normal 25.1-36.5 [facility] Comment on above: Result Comment: PERF ORMED BY: [place] [address] PATHOLOGIST DOVETAIL MACHINE OPERATOR JANETTE DE LA FUENTE M.D. Performed By: #### C MP, MG, HS TROP, A1C WTH eA, LIPID, CBC #### [facility] [address] Prothrombin Time INRon 10-10 INR Coag (PPP) [Relative time] 0.9 {INR} Normal [facility] Comment on above: Result Comment: INR Therapeutic [...] heart valves: 3 - 4.5 PERFORMED BY: [facility] [address] [place] [address] PATHOLOGIST DOVETAIL MACHINE OPERATOR JANETTE DE LA FUENTE M.D. Performed By: #### P T, CBC #### [facility] [address] [id number] [facility] PT Coag (PPP) [Time] 10.9 s Normal 9.0-12.9 [facility] Comment on above: Performed By: #### P T, CBC #### [facility] [address] [place] [id number] [facility] Troponin I High Sensitivityo n 10-10-2022 Troponin I High Sensitivity 7787.7 pg/mL Off scale high 0.0-20.0 [facility] Comment on above: Order Comment: Comme nt Q 3 hrs Result Comment: Resu lts called at 0817 on 10/10/22 --- 10/10/22 0819 --- Trop HS previously reported as: 7787.7 *H pg/mL PERFORMED BY: [place] [address] PATHOLOGIST DOVETAIL MACHINE OPERATOR JANETTE DE LA FUENTE M.D. Performed By: #### C MP, MG, HS TROP, A1C WTH eA, LIPID, CBC #### [facility] [address] [place] [id number] [facility] XR ABD FLAT UP_PA Jean-Pierre [...] by: XIOMARA SCHNEIDER Date: 2022-10-10 00:33 Normal [facility] XR knee RT 3Von 09-09-2022 XR knee RT 3V [facility] [employer] Other XR knee RT 3V [facility] [employer] Other XR knee RT 3V 1111 [facility] [employer] Other XR knee [place] [address] [facility] [employer] Other XR knee RT 3V XRay Report [employer] [facility] Other XR knee RT 3V Signed [employer] Other XR knee RT 3V Patient: Hector Gaspar MR#: [id number] Hector [employer] Other XR knee RT 3V 187 [employer] Other XR knee RT 3V : 1960 Acct:[id number] Hector [employer] Other XR knee RT 3V Age/Sex: 62 / M ADM Date: 09/09/22 [employer] Other XR knee RT 3V Loc: SOXD Room: Type : [facility] [employer] Other XR knee RT 3V Attending Dr: Wagner Marrufo DO [employer] Other XR knee RT 3V Copies to: Wagner Marrufo, DO [employer] Other XR knee RT 3V Ordering Provider: Judy Marrufo DO [employer] Other XR knee RT 3V Date of Service: 09/09/22 [employer] Other XR knee RT 3V XR/XR knee RT 3V - NOT FOR ER USE: Acute pain of right knee [employer] Other XR knee RT 3V RIGHT KNEE - 3 views [facility] [employer] Other XR knee RT 3V CLINICAL HISTORY: Generalized right knee pain for 2 weeks. [employer] Other XR knee RT 3V COMPARISON: None [employer] Other XR knee RT 3V FINDINGS: [employer] Other XR knee RT 3V Small knee joint effusion. Mild degenerative changes without acute bony process. Presumed loose [employer] Other XR knee RT 3V body seen anteriorly within the joint space. [employer] Other XR knee RT 3V X R/XR knee RT 3V - NOT FOR ER USE [employer] Other XR knee RT 3V IMPRESSION: [employer] Other XR knee RT 3V MILD DEGENERATIVE CH ANGES WITHOUT ACUTE BONY PROCESS. [employer] Other XR knee RT 3V Impression dictated by: Parrish Layton Jr., Kannan09/09/2022 3:40 PM [employer] Other XR knee RT 3V Dictation Location: [place] [address] [employer] Other XR knee RT 3V Transcribed By: PWS 09/09/22 [facility] [employer] Other XR knee RT 3V Dictated By: Parrish Layton Jr, DO 09/09/22 1539 [employer] Other XR knee RT 3V Signed By: [employer] Other XR knee RT 3V 09/09/22 1540 [employer] Other XR knee RT 3V - NOT FOR ER U Al 09-09-2022 XR knee RT 3V - NOT FOR ER USE [facility] [place] [address] [place] [address] XRay Report Signed Patient: Hector Gaspar MR#: [id number] 187 : 1960 Acct:[id number] Age/Sex: 62 / M ADM Date: 09/09/22 Loc: SOX Room: Type: [facility] Attending Dr: Wagner Marrufo DO Copies to: [...] PROCESS. Impression dictated by: Parrish Layton Jr., D.OEhsan09/09/2022 3:40 PM Dictation Location: [place] [address] Transcribed By: [facility] 09/09/22 1540 Dictated By: Parrish Layton Jr, DO 09/09/22 1539 Signed By: 09/09/22 1540 [facility] CBC AUTO DIFFon 09-08-2022 BASO # 0.0 103/ul Normal 0.0-0.1 [facility] Comment on above: Performed By: #### C BC #### [facility] [address] [place] [address] Dr. Carrington Chandler Basophils/100 WBC (Bld) 0.4 % Normal 0.2-2.0 [facility] Comment on above: Performed By: #### C BC #### [facility] [address] [place] [address] Dr. Carrington Chandler EO # 0.3 103/ul Normal 0.0-0.7 [facility] Comment on above: Performed By: #### C BC #### [facility] [address] [place] [address] Dr. Carrington Chandler Eosinophils/100 WBC (Bld) 4.9 % Normal 0.9-7.0 [facility] Comment on above: Performed By: #### C BC #### [facility] [address] [place] [address] Dr. Carrington Chandler Erythrocyte distribution width (RBC) [Ratio] 14.0 % Normal 11.0-15.0 [facility] Comment on above: Performed By: #### C BC #### [facility] [address] [place] [address] Dr. Carrington Chandler Hematocrit (Bld) [Volume fraction] 36.9 % Critically low 42.0-54.0 [facility] Comment on above: Performed By: #### C BC #### [facility] [address] [place] [address] Dr. Carrington Chandler Hemoglobin (Bld) [Mass/Vol] 12.2 g/dL Critically low 14.0-18.0 [facility] Comment on above: Performed By: #### C BC #### [facility] [address] [place] [address] Dr. Carrington Chandler IG # 0.01 10e3/ul Normal 0.00-0.03 [facility] Comment on above: Performed By: #### C BC #### [facility] [address] [place] [address] Dr. Carrington Chandler IG % 0.2 % Normal 0.0-0.5 [facility] Comment on above: Performed By: #### C BC #### [facility] [address] [place] [address] Dr. Carrington Chandler LYMPH # 1.7 103/ul Normal 1.2-3.8 [facility] Comment on above: Performed By: #### C BC #### [facility] [address] [place] [address] Dr. Carrington Chandler Lymphocytes/100 WBC (Bld) 30.6 % Normal 20.5-60.0 [facility] Comment on above: Performed By: #### C BC #### [facility] [address] [place] [address] Dr. Carrington Chandler MANUAL DIFF REQ NO Normal [facility] Comment on above: Performed By: #### C BC #### [facility] [address] [place] [address] Dr. Carrington Chandler MCH (RBC) [Entitic mass] 30.3 pg Normal 25.9-34.0 [facility] Comment on above: Performed By: #### C BC #### [facility] [address] [address] [address] Carrington Chandler MCHC (RBC) [Mass/Vol] 33.1 g/dL Normal 29.9-35.2 [facility] Comment on above: Performed By: #### C BC #### [facility] [address] [address] [address] Carrington Chandler MCV (RBC) [Entitic vol] 91.6 fL Normal 80.0-94.0 [facility] Comment on above: Performed By: #### C BC #### [facility] [address] [place] [address] Dr. Carrington Chandler MONO # 0.6 103/ul Normal 0.3-0.8 [facility] Comment on above: Performed By: #### C BC #### [facility] [address] [place] [address] Dr. Carrington Chandler Monocytes/100 WBC (Bld) 9.9 % Normal 1.7-12.0 [facility] Comment on above: Performed By: #### C BC #### [facility] [address] [place] [address] Dr. Carrington Chandler NEUT # 3.0 103/ul Normal 1.4-6.5 [facility] Comment on above: Performed By: #### C BC #### [facility] [address] [place] [address] Dr. Carrington Chandler Neutrophils/100 WBC (Bld) 54.0 % Normal 43.0-75.0 [facility] Comment on above: Performed By: #### C BC #### [facility] [address] [place] [address] Dr. Carrington Chandler Platelet mean volume (Bld) [Entitic vol] 8.9 fL Critically low 9.5-13.5 [facility] Comment on above: Performed By: #### C BC #### [facility] [address] [place] [address] Dr. Carrington Chandler PLT 189 103/ul Normal 150-450 [facility] Comment on above: Performed By: #### C BC #### [facility] [address] [address] [address] Carrington Chandler RBC 4.03 106/ul Critically low 4.70-6.10 [facility] Comment on above: Performed By: #### C BC #### [facility] [address] [address] [address] Carrington Chandler WBC 5.5 103/ul Normal 4.0-11.0 [facility] Comment on above: Performed By: #### C BC #### [facility] [address] [address] [address] Carrington Chandler CRPon 09-08-2022 CRP 0.5 mg/dL Normal <=1.0 [facility] Comment on above: Performed By: #### A MY, CMP, LIPA #### [facility] [address] [address] [address] Carrington Chandler PROF CHEM 8 (BAS METB)on Anion gap [Moles/Vol] 12.7 mmol/L Normal [facility] [facility] Comment on above: Performed By: #### A MY, CMP, LIPA #### [facility] [address] [place] [address] Dr. Carrington Chandler Calcium [Mass/Vol] 8.6 mg/dL Normal 8.5-10.1 [facility] Comment on above: Performed By: #### A MY, CMP, LIPA #### [facility] [address] [address] [address] Carrington Chandler Chloride [Moles/Vol] 102 mmol/L Normal 98-107 [facility] Comment on above: Performed By: #### A MY, CMP, LIPA #### [facility] [address] [place] [address] Dr. Carrington Chandler CO2 [Moles/Vol] 27.2 mmol/L Normal 21.0-32.0 [facility] Comment on above: Performed By: #### A MY, CMP, LIPA #### [facility] [address] [place] [address] Dr. Carrington Chandler Creatinine [Mass/Vol] 1.11 mg/dL Normal 0.70-1.30 [facility] Comment on above: Performed By: #### A MY, CMP, LIPA #### [facility] [address] [address] [address] Carrington Chandler EGFR-AF [place] >60 Normal >=60 [facility] Comment on above: Performed By: #### A MY, CMP, LIPA #### [facility] [address] [address] [address] Carrington Chandler EGFR-NON AF [place] >60 Normal >=60 [facility] Comment on above: Performed By: #### A MY, CMP, LIPA #### [facility] [address] [address] [address] Carrington Chandler Glucose [Mass/Vol] 132 mg/dL Critically high 74-106 T [facility] Comment on above: Performed By: #### A MY, CMP, LIPA #### [facility] [address] [address] [address] Carrington Chandler Potassium [Moles/Vol] 3.9 mmol/L Normal 3.5-5.1 [facility] Comment on above: Performed By: #### A MY, CMP, LIPA #### [facility] [address] [address] [address] Carrington Chandler Sodium [Moles/Vol] 138 mmol/L Normal 136-145 [facility] Comment on above: Performed By: #### A MY, CMP, LIPA #### [facility] [address] [address] [address] Carrington Chandler Urea nitrogen [Mass/Vol] 18.0 mg/dL Normal 7.0-18.0 [facility] Comment on above: Performed By: #### A MY, CMP, LIPA #### [facility] [address] [address] [address] Carrington Chandler Urea nitrogen/Creatinine [Mass ratio] 16.2 mg/mg Normal [facility] Comment on above: Performed By: #### A MY, CMP, LIPA #### [facility] [address] [place] [address] Dr. Carrington Chandler US [place] DOP LEG [...] CYNTHIA VASQUEZ Date: 2022-09-07 22:52 Normal [facility] HEMOGLOBINon 08-10-2022 Hemoglobin (Bld) [Mass/Vol] 13.3 g/dL Critically low 14.0-18.0 [facility] Comment on above: Performed By: #### B MP #### [facility] [address] [place] [address] Dr. Carrington Chandler CBC W MANUAL DIFFon 07-11-20 22 ATYPICAL LYMPH # 0.65 103/ul Normal [facility] Comment on above: Performed By: #### A MY, CMP, LIPA #### [facility] [address] [place] [address] Dr. Carrington Chandler ATYPICAL LYMPH % 11 % Normal [facility] Comment on above: Performed By: #### A MY, CMP, LIPA #### [facility] [address] [place] [address] Dr. Carrington Chadnler BAND # 0.0 103/ul Normal 0.0-0.3 [facility] Comment on above: Performed By: #### A MY, CMP, LIPA #### [facility] [address] [place] [address] Dr. Carrington Chandler BAND % 0 % Normal 0-5 [facility] Comment on above: Performed By: #### A MY, CMP, LIPA #### [facility] [address] [address] [address] Carrington Chandler BASOM # 0.00 103/ul Normal 0.00-0.10 [facility] Comment on above: Performed By: #### A MY, CMP, LIPA #### [facility] [address] [address] [address] Carrington Chandler BASOM % 0.0 % Critically low 0.2-2.0 [facility] Comment on above: Performed By: #### A MY, CMP, LIPA #### [facility] [address] [place] [address] Dr. Carrington Chandler BLAST # Normal [facility] Comment on above: Performed By: #### A MY, CMP, LIPA #### [facility] [address] [place] [address] Dr. Carrington Chandler BLAST % Normal [facility] Comment on above: Performed By: #### A MY, CMP, LIPA #### [facility] [address] [place] [address] Dr. Carrington Chandler CORRECTED WBC Normal 4.0-11.0 [facility] Comment on above: Performed By: #### A MY, CMP, LIPA #### [facility] [address] [place] [address] Dr. Carrington Chandler EOS # 0.00 103/ul Normal 0.00-0.70 [facility] Comment on above: Performed By: #### A MY, CMP, LIPA #### [facility] [address] [place] [address] Dr. Carrington Chandler EOS% 0.0 % Critically low 0.9-7.0 [facility] Comment on above: Performed By: #### A MY, CMP, LIPA #### [facility] [address] [place] [address] Dr. Carrington Chandler HCT 34.7 % Critically low 42.0-54.0 [facility] Comment on above: Performed By: #### A MY, CMP, LIPA #### [facility] [address] [address] [address] Carrington Chandler HGB 11.7 g/dl Critically low 14.0-18.0 [facility] Comment on above: Performed By: #### A MY, CMP, LIPA #### [facility] [address] [place] [address] Dr. Carrington Chandler LYMPHM # 0.12 103/ul Critically low 1.20-3.80 [facility] Comment on above: Performed By: #### A MY, CMP, LIPA #### [facility] [address] [place] [address] Dr. Carrington Chandler LYMPHM% 2.0 % Critically low 20.5-60.0 [facility] Comment on above: Performed By: #### A MY, CMP, LIPA #### [facility] [address] [place] [address] Dr. Carrington Chandler MCH 29.9 pg Normal 25.9-34.0 [facility] Comment on above: Performed By: #### A MY, CMP, LIPA #### [facility] [address] [place] [address] Dr. Carrington Chandler MCHC 33.7 g/dl Normal 29.9-35.2 [facility] Comment on above: Performed By: #### A MY, CMP, LIPA #### [facility] [address] [place] [address] Dr. Carrington Chandler MCV 88.7 fL Normal 80.0-94.0 [facility] Comment on above: Performed By: #### A MY, CMP, LIPA #### [facility] [address] [place] [address] Dr. Carrington Chandler METAMYELOCYTE # Normal [facility] Comment on above: Performed By: #### A MY, CMP, LIPA #### [facility] [address] [place] [address] Dr. Carrington Chandler METAMYELOCYTE % Normal [facility] Comment on above: Performed By: #### A MY, CMP, LIPA #### [facility] [address] [address] [address] Carrington Chandler MONOM# 0.00 103/ul Critically low 0.30-0.80 [facility] Comment on above: Performed By: #### A MY, CMP, LIPA #### [facility] [address] [address] [address] Carrington Chandler MONOM% 0.0 % Critically low 1.7-12.0 [facility] Comment on above: Performed By: #### A MY, CMP, LIPA #### [facility] [address] [address] [address] Carrington Chandler MPV 9.4 fL Critically low 9.5-13.5 [facility] Comment on above: Performed By: #### A MY, CMP, LIPA #### [facility] [address] [place] [address] Dr. Carrington Chandler MYELOCYTE # Normal [facility] Comment on above: Performed By: #### A MY, CMP, LIPA #### [facility] [address] [place] [address] Dr. Carrington Chandler MYELOCYTE % Normal [facility] Comment on above: Performed By: #### A MY, CMP, LIPA #### [facility] [address] [place] [address] Dr. Carrington Chandler NRBC Normal [facility] Comment on above: Performed By: #### A MY, CMP, LIPA #### [facility] [address] [place] [address] Dr. Carrington Chandler PLT 160 103/ul Normal 150-450 [facility] Comment on above: Performed By: #### A MY, CMP, LIPA #### [facility] [address] [place] [address] Dr. Carrington Chandler RBC 3.91 106/ul Critically low 4.70-6.10 [facility] Comment on above: Performed By: #### A MY, CMP, LIPA #### [facility] [address] [place], [place] [id number] Dr. Carrington Chandler RDW 12.4 % Normal 11.0-15.0 [facility] Comment on above: Performed By: #### A MY, CMP, LIPA #### [facility] [address] [address] [address] Carrington Chandler SEG # 5.13 103/ul Normal 1.40-6.50 [facility] Comment on above: Performed By: #### A MY, CMP, LIPA #### [facility] [address] [place] [address] Dr. Carrington Chandler SEG % 87.0 % Critically high 43.0-75.0 [facility] Comment on above: Performed By: #### A MY, CMP, LIPA #### [facility] [address] [place] [address] Dr. Carrington Chandler WBC 5.9 103/ul Normal 4.0-11.0 [facility] Comment on above: Performed By: #### A MY, CMP, LIPA #### [facility] [address] [place] [address] Dr. Carrington Chandler PROF 14(COMP METB)on 022 Albumin [Mass/Vol] 3.0 g/dL Critically low 3.4-5.0 [facility] Comment on above: Performed By: #### C MP #### [facility] [address] [place] [address] Dr. Carrington Chandler Albumin/Globulin [Mass ratio] 0.9 {ratio} Normal [facility] Comment on above: Performed By: #### C MP #### [facility] [address] [place] [address] Dr. Carrington Chandler ALP [Catalytic activity/Vol] 56 U/L Normal 46-116 [facility] Comment on above: Performed By: #### C MP #### [facility] [address] [place] [address] Dr. Carrington Chandler ALT [Catalytic activity/Vol] 21 U/L Normal 16-63 [facility] Comment on above: Performed By: #### C MP #### [facility] [address] [address] [address] Carrington Chandler Anion gap [Moles/Vol] 12.9 mmol/L Normal [facility] Comment on above: Performed By: #### C MP #### [facility] [address] [place] [address] Dr. Carrington Chandler AST [Catalytic activity/Vol] 15 U/L Normal 15-37 [facility] Comment on above: Performed By: #### C MP #### [facility] [address] [address] [address] Carrington Chandler Bilirubin [Mass/Vol] 0.2 mg/dL Normal 0.2-1.0 [facility] Comment on above: Performed By: #### C MP #### [facility] [address] [place] [address] Dr. Carrington Chandler Calcium [Mass/Vol] 8.1 mg/dL Critically low 8.5-10.1 [facility] Comment on above: Performed By: #### C MP #### [facility] [address] [place] [address] Dr. Carrington Chandler Chloride [Moles/Vol] 104 mmol/L Normal 98-107 [facility] Comment on above: Performed By: #### C MP #### [facility] [address] [place] [address] Dr. Carrington Chandler CO2 [Moles/Vol] 24.6 mmol/L Normal 21.0-32.0 [facility] Comment on above: Performed By: #### C MP #### [facility] [address] [place] [address] Dr. Carrington Chandler Creatinine [Mass/Vol] 0.88 mg/dL Normal 0.70-1.30 [facility] Comment on above: Performed By: #### C MP #### [facility] [address] [place] [address] Dr. Carrington Chandler EGFR-AF [place] >60 Normal >=60 [facility] Comment on above: Performed By: #### C MP #### [facility] [address] [place] [address] Dr. Carrington Chandler EGFR-NON AF [place] >60 Normal >=60 [facility] Comment on above: Performed By: #### C MP #### [facility] [address] [place] [address] Dr. Carrington Chandler Globulin (S) [Mass/Vol] 3.3 g/dL Normal [facility] Comment on above: Performed By: #### C MP #### [facility] [address] [address] [address] Carrington Chandler Glucose [Mass/Vol] 174 mg/dL Critically high 74-106 [facility] Comment on above: Performed By: #### C MP #### [facility] [address] [place] [address] Dr. Carrington Chandler Potassium [Moles/Vol] 3.5 mmol/L Normal 3.5-5.1 [facility] Comment on above: Performed By: #### C MP #### [facility] [address] [place] [address] Dr. Carrington Chandler Protein [Mass/Vol] 6.3 g/dL Critically low 6.4-8.2 [facility] Comment on above: Performed By: #### C MP #### [facility] [address] [place] [address] Dr. Carrington Chandler Sodium [Moles/Vol] 138 mmol/L Normal 136-145 [facility] Comment on above: Performed By: #### C MP #### [facility] [address] [place] [address] Dr. Carrington Chandler Urea nitrogen [Mass/Vol] 17.0 mg/dL Normal 7.0-18.0 [facility] Comment on above: Performed By: #### C MP #### [facility] [address] [address] [address] Carrington Chandler Urea nitrogen/Creatinine [Mass ratio] 19.3 mg/mg Normal [facility] Comment on above: Performed By: #### C MP #### [facility] [address] [place] [address] Dr. Carrington Chandler CBC AUTO DIFFon 07-10-2022 BASO # 0.0 103/ul Normal 0.0-0.1 [facility] Comment on above: Performed By: #### B MP #### [facility] [address] [place] [address] Dr. Carrington Chandler Basophils/100 WBC (Bld) 0.2 % Normal 0.2-2.0 [facility] Comment on above: Performed By: #### B MP #### [facility] [address] [place] [address] Dr. Carrington Chandler EO # 0.1 103/ul Normal 0.0-0.7 [facility] Comment on above: Performed By: #### B MP #### [facility] [address] [place] [address] Dr. Carrington Chandler Eosinophils/100 WBC (Bld) 2.3 % Normal 0.9-7.0 [facility] Comment on above: Performed By: #### B MP #### [facility] [address] [place] [address] Dr. Carrington Chandler Erythrocyte distribution width (RBC) [Ratio] 12.5 % Normal 11.0-15.0 [facility] Comment on above: Performed By: #### B MP #### [facility] [address] [place] [address] Dr. Carrington Chandler Hematocrit (Bld) [Volume fraction] 36.8 % Critically low 42.0-54.0 [facility] Comment on above: Performed By: #### B MP #### [facility] [address] [place] [address] Dr. Carrington Chandler Hemoglobin (Bld) [Mass/Vol] 12.3 g/dL Critically low 14.0-18.0 [facility] Comment on above: Performed By: #### B MP #### [facility] [address] [place] [address] Dr. Carrington Chandler IG # 0.01 10e3/ul Normal 0.00-0.03 [facility] Comment on above: Performed By: #### B MP #### [facility] [address] [place] [address] Dr. Carrington Chandler IG % 0.2 % Normal 0.0-0.5 [facility] Comment on above: Performed By: #### B MP #### [facility] [address] [place] [address] Dr. Carrington Chandler LYMPH # 1.5 103/ul Normal 1.2-3.8 [facility] Comment on above: Performed By: #### B MP #### [facility] [address] [place] [address] Dr. Carrington Chandler Lymphocytes/100 WBC (Bld) 34.7 % Normal 20.5-60.0 [facility] Comment on above: Performed By: #### B MP #### [facility] [address] [place] [address] Dr. Carrington Chandler MANUAL DIFF REQ NO Normal [facility] Comment on above: Performed By: #### B MP #### [facility] [address] [place] [address] Dr. Carrington Chandler MCH (RBC) [Entitic mass] 29.8 pg Normal 25.9-34.0 [facility] Comment on above: Performed By: #### B MP #### [facility] [address] [place] [address] Dr. Carrington Chandler MCHC (RBC) [Mass/Vol] 33.4 g/dL Normal 29.9-35.2 [facility] Comment on above: Performed By: #### B MP #### [facility] [address] [place] [address] Dr. Carrington Chandler MCV (RBC) [Entitic vol] 89.1 fL Normal 80.0-94.0 [facility] Comment on above: Performed By: #### B MP #### [facility] [address] [place] [address] Dr. Carrington Chandler MONO # 0.5 103/ul Normal 0.3-0.8 [facility] Comment on above: Performed By: #### B MP #### [facility] [address] [place] [address] Dr. Carrington Chandler Monocytes/100 WBC (Bld) 11.0 % Normal 1.7-12.0 [facility] Comment on above: Performed By: #### B MP #### [facility] [address] [address] [address] Carrington Chandler NEUT # 2.2 103/ul Normal 1.4-6.5 [facility] Comment on above: Performed By: #### B MP #### [facility] [address] [address] [address] Carrington Chandler Neutrophils/100 WBC (Bld) 51.6 % Normal 43.0-75.0 [facility] Comment on above: Performed By: #### B MP #### [facility] [address] [address] [address] Carrington Chandler Platelet mean volume (Bld) [Entitic vol] 9.0 fL Critically low 9.5-13.5 [facility] Comment on above: Performed By: #### B MP #### [facility] [address] [address] [address] Carrington Chandler PLT 147 103/ul Critically low 150-450 [facility] Comment on above: Performed By: #### B MP #### [facility] [address] [address] [address] Carrington Chandler RBC 4.13 106/ul Critically low 4.70-6.10 [facility] Comment on above: Performed By: #### B MP #### [facility] [address] [address] [address] Carrington Chandler WBC 4.4 103/ul Normal 4.0-11.0 [facility] Comment on above: Performed By: #### B MP #### [facility] [address] [address] [address] Carrington Chandler CULTURE SPUTUMon 07-10-2022 CULTURE SPUTUM Culture Observations : NORMAL RESPIRATORY SANDY. Normal [facility] Comment on above: Performed By: #### C MP #### [facility] [address] [address] [address] Carrington Chandler MAGNESIUMon 07-10-2022 Magnesium [Mass/Vol] 2.0 mg/dL Normal 1.8-2.4 [facility] Comment on above: Performed By: #### C MP #### [facility] [address] [address] [address] Carrington Chandler PROF 14(COMP METB)on 022 Albumin [Mass/Vol] 2.8 g/dL Critically low 3.4-5.0 [facility] Comment on above: Performed By: #### B MP #### [facility] [address] [place] [address] Dr. Carrington Chandler Albumin/Globulin [Mass ratio] 0.8 {ratio} Normal [facility] Comment on above: Performed By: #### B MP #### [facility] [address] [place] [address] Dr. Carrington Chandler ALP [Catalytic activity/Vol] 55 U/L Normal 46-116 [facility] Comment on above: Performed By: #### B MP #### [facility] [address] [place] [address] Dr. Carrington Chandler ALT [Catalytic activity/Vol] 22 U/L Normal 16-63 [facility] Comment on above: Performed By: #### B MP #### [facility] [address] [place] [address] Dr. Carrington Chandler Anion gap [Moles/Vol] 10.3 mmol/L Normal [facility] Comment on above: Performed By: #### B MP #### [facility] [address] [place] [address] Dr. Carrington Chandler AST [Catalytic activity/Vol] 22 U/L Normal 15-37 [facility] Comment on above: Performed By: #### B MP #### [facility] [address] [place] [address] Dr. Carrington Chandler Bilirubin [Mass/Vol] 0.2 mg/dL Normal 0.2-1.0 [facility] Comment on above: Performed By: #### B MP #### [facility] [address] [place] [address] Dr. Carrington Chandler Calcium [Mass/Vol] 8.0 mg/dL Critically low 8.5-10.1 [facility] Comment on above: Performed By: #### B MP #### [facility] [address] [address] [address] Carrington Chandler Chloride [Moles/Vol] 105 mmol/L Normal 98-107 [facility] Comment on above: Performed By: #### B MP #### [facility] [address] [address] [address] Carrington Chandler CO2 [Moles/Vol] 28.1 mmol/L Normal 21.0-32.0 [facility] Comment on above: Performed By: #### B MP #### [facility] [address] [address] [address] Carrington Chandler Creatinine [Mass/Vol] 0.89 mg/dL Normal 0.70-1.30 [facility] Comment on above: Performed By: #### B MP #### [facility] [address] [place] [address] Dr. Carrington Chandler EGFR-AF [place] >60 Normal >=60 [facility] Comment on above: Performed By: #### B MP #### [facility] [address] [place] [address] Dr. Carrington Chandler EGFR-NON AF [place] >60 Normal >=60 [facility] Comment on above: Performed By: #### B MP #### [facility] [address] [place] [address] Dr. Carrington Chandler Globulin (S) [Mass/Vol] 3.7 g/dL Normal [facility] Comment on above: Performed By: #### B MP #### [facility] [address] [place] [address] Dr. Carrington Chandler Glucose [Mass/Vol] 124 mg/dL Critically high 74-106 [facility] Comment on above: Performed By: #### B MP #### [facility] [address] [place] [address] Dr. Carrington Chandler Potassium [Moles/Vol] 3.4 mmol/L Critically low 3.5-5.1 [facility] Comment on above: Performed By: #### B MP #### [facility] [address] [place] [address] Dr. Carrington Chandler Protein [Mass/Vol] 6.5 g/dL Normal 6.4-8.2 [facility] Comment on above: Performed By: #### B MP #### [facility] [address] [place] [address] Dr. Carrington Chandler Sodium [Moles/Vol] 140 mmol/L Normal 136-145 [facility] Comment on above: Performed By: #### B MP #### [facility] [address] [place] [address] Dr. Carrington Chandler Urea nitrogen [Mass/Vol] 15.0 mg/dL Normal 7.0-18.0 [facility] Comment on above: Performed By: #### B MP #### [facility] [address] [place] [address] Dr. Carrington Chandler Urea nitrogen/Creatinine [Mass ratio] 16.9 mg/mg Normal [facility] Comment on above: Performed By: #### B MP #### [facility] [address] [place] [address] Dr. Carrington Chandler CBC AUTO DIFFon 07-09-2022 BASO # 0.0 103/ul Normal 0.0-0.1 [facility] Comment on above: Performed By: #### A MY, CMP, LIPA #### [facility] [address] [place] [address] Dr. Carrington Chandler Basophils/100 WBC (Bld) 0.2 % Normal 0.2-2.0 [facility] Comment on above: Performed By: #### A MY, CMP, LIPA #### [facility] [address] [place] [address] Dr. Carrington Chandler EO # 0.1 103/ul Normal 0.0-0.7 [facility] Comment on above: Performed By: #### A MY, CMP, LIPA #### [facility] [address] [place] [address] Dr. Carrington Chandler Eosinophils/100 WBC (Bld) 1.9 % Normal 0.9-7.0 [facility] Comment on above: Performed By: #### A MY, CMP, LIPA #### [facility] [address] [place] [address] Dr. Carrington Chandler Erythrocyte distribution width (RBC) [Ratio] 12.6 % Normal 11.0-15.0 [facility] Comment on above: Performed By: #### A MY, CMP, LIPA #### [facility] [address] [place] [address] Dr. Carrington Chandler Hematocrit (Bld) [Volume fraction] 38.8 % Critically low 42.0-54.0 [facility] Comment on above: Performed By: #### A MY, CMP, LIPA #### [facility] [address] [place] [address] Dr. Carrington Chandler Hemoglobin (Bld) [Mass/Vol] 12.9 g/dL Critically low 14.0-18.0 [facility] Comment on above: Performed By: #### A MY, CMP, LIPA #### [facility] [address] [place] [address] Dr. Carrington Chandler IG # 0.01 10e3/ul Normal 0.00-0.03 [facility] Comment on above: Performed By: #### A MY, CMP, LIPA #### [facility] [address] [place] [address] Dr. Carrington Chandler IG % 0.2 % Normal 0.0-0.5 [facility] Comment on above: Performed By: #### A MY, CMP, LIPA #### [facility] [address] [place] [address] Dr. Carrington Chandler LYMPH # 1.7 103/ul Normal 1.2-3.8 [facility] Comment on above: Performed By: #### A MY, CMP, LIPA #### [facility] [address] [place] [address] Dr. Carrington Chandler Lymphocytes/100 WBC (Bld) 34.7 % Normal 20.5-60.0 [facility] Comment on above: Performed By: #### A MY, CMP, LIPA #### [facility] [address] [place] [address] Dr. Carrington Chandler MANUAL DIFF REQ NO Normal [facility] Comment on above: Performed By: #### A MY, CMP, LIPA #### [facility] [address] [place] [address] Dr. Carrington Chandler MCH (RBC) [Entitic mass] 29.9 pg Normal 25.9-34.0 [facility] Comment on above: Performed By: #### A MY, CMP, LIPA #### [facility] [address] [place] [address] Dr. Carrington Chandler MCHC (RBC) [Mass/Vol] 33.2 g/dL Normal 29.9-35.2 [facility] Comment on above: Performed By: #### A MY, CMP, LIPA #### [facility] [address] [place] [address] Dr. Carrington Chandler MCV (RBC) [Entitic vol] 90.0 fL Normal 80.0-94.0 [facility] Comment on above: Performed By: #### A MY, CMP, LIPA #### [facility] [address] [place] [address] Dr. Carrington Chandler MONO # 0.5 103/ul Normal 0.3-0.8 [facility] Comment on above: Performed By: #### A MY, CMP, LIPA #### [facility] [address] [place] [address] Dr. Carrington Chandler Monocytes/100 WBC (Bld) 10.4 % Normal 1.7-12.0 [facility] Comment on above: Performed By: #### A MY, CMP, LIPA #### [facility] [address] [place] [address] Dr. Carrington Chandler NEUT # 2.5 103/ul Normal 1.4-6.5 [facility] Comment on above: Performed By: #### A MY, CMP, LIPA #### [facility] [address] [place] [address] Dr. Carrington Chandler Neutrophils/100 WBC (Bld) 52.6 % Normal 43.0-75.0 [facility] Comment on above: Performed By: #### A MY, CMP, LIPA #### [facility] [address] [address] [address] Carrington Chandler Platelet mean volume (Bld) [Entitic vol] 9.0 fL Critically low 9.5-13.5 [facility] Comment on above: Performed By: #### A MY, CMP, LIPA #### [facility] [address] [address] [address] Carrington Chandler PLT 155 103/ul Normal 150-450 [facility] Comment on above: Performed By: #### A MY, CMP, LIPA #### [facility] [address] [address] [address] Carrington Chandler RBC 4.31 106/ul Critically low 4.70-6.10 [facility] Comment on above: Performed By: #### A MY, CMP, LIPA #### [facility] [address] [address] [address] Carrington Chandler WBC 4.8 103/ul Normal 4.0-11.0 [facility] Comment on above: Performed By: #### A MY, CMP, LIPA #### [facility] [address] [address] [address] Carrington Chandler Covid-19 PCR ([facility])on 06-25 SARS-CoV-2 (COVID-19) RNA CHARLIE+probe Ql (Unsp spec) Not detected Normal NOT DETECTED [facility] Comment on above: Result Comment: When diagnostic [...] for this test is supported by the Customer [employer] of Health and Human Service's declaration that [...] used). Performed By: #### C MP #### [facility] [address] [place] [address] Dr. Carrington Chandler ER URINE PROFILEon 2 Bilirubin Ql (U) Negative Normal NEGATIVE [facility] Comment on above: Performed By: #### C MP #### [facility] [address] [place] [address] Dr. Carrington Chandler Clarity (U) CLEAR Normal CLEAR [facility] Comment on above: Performed By: #### C MP #### [facility] [address] [place] [address] Dr. Carrington Chandler Color (U) LT. YELLOW Normal YELLOW [facility] Comment on above: Performed By: #### C MP #### [facility] [address] [place] [address] Dr. Carrington Chandler ERUAHD A micrscopic examina tion will be performed if indicated. Normal [facility] Comment on above: Performed By: #### C MP #### [facility] [address] [place] [address] Dr. Carrington Chandler Glucose Ql (U) Negative Normal NEGATIVE [facility] Comment on above: Performed By: #### C MP #### [facility] [address] [place] [address] Dr. Carrington Chandler Hemoglobin Ql (U) Negative Normal NEGATIVE [facility] Comment on above: Performed By: #### C MP #### [facility] [address] [place] [address] Dr. Carrington Chandler Ketones Ql (U) Negative Normal NEGATIVE [facility] Comment on above: Performed By: #### C MP #### [facility] [address] [place] [address] Dr. Carrington Chandler LEUKOCYTES Negative Normal NEGATIVE [facility] Comment on above: Performed By: #### C MP #### [facility] [address] [place] [address] Dr. Carrington Chandler Nitrite Ql (U) Negative Normal NEGATIVE [facility] Comment on above: Performed By: #### C MP #### [facility] [address] [address] [address] Carrington Chandler pH (U) 6.0 [pH] Normal 5-9 [facility] Comment on above: Performed By: #### C MP #### [facility] [address] [place] [address] Dr. Carrington Chandler SPEC GRAVITY 1.010 Normal 1.005-<=1. 025 [facility] Comment on above: Performed By: #### C MP #### [facility] [address] [place] [address] Dr. Carrington Chandler UA PROTEIN Negative Normal NEGATIVE/ TRACE [facility] Comment on above: Performed By: #### C MP #### [facility] [address] [place] [address] Dr. Carrington Chandler UR MICRO IND NOT INDICATED Normal [facility] Comment on above: Performed By: #### C MP #### [facility] [address] [place] [address] Dr. Carrington Chandler Urobilinogen Qn (U) 0.2 {Lars'U}/dL Normal 0.2 - 1. 0 [facility] Comment on above: Performed By: #### C MP #### [facility] [address] [place] [address] Dr. Carrington Chandler PROF CHEM 8 (BAS METB)on Anion gap [Moles/Vol] 6.6 mmol/L Normal [facility] Comment on above: Performed By: #### B MP #### [facility] [address] [place] [address] Dr. Carrington Chandler Calcium [Mass/Vol] 8.2 mg/dL Critically low 8.5-10.1 [facility] Comment on above: Performed By: #### B MP #### [facility] [address] [place] [address] Dr. Carrington Chandler Chloride [Moles/Vol] 102 mmol/L Normal 98-107 [facility] Comment on above: Performed By: #### B MP #### [facility] [address] [address] [address] Carrington Chandler CO2 [Moles/Vol] 31.2 mmol/L Normal 21.0-32.0 [facility] Comment on above: Performed By: #### B MP #### [facility] [address] [address] [address] Carrington Chandler Creatinine [Mass/Vol] 0.90 mg/dL Normal 0.70-1.30 [facility] Comment on above: Performed By: #### B MP #### [facility] [address] [address] [address] Carrington Chandler EGFR-AF [place] >60 Normal >=60 [facility] Comment on above: Performed By: #### B MP #### [facility] [address] [address] [address] Carrington Chandler EGFR-NON AF [place] >60 Normal >=60 [facility] Comment on above: Performed By: #### B MP #### [facility] [address] [address] [address] Carrington Chandler Glucose [Mass/Vol] 100 mg/dL Normal 74-106 [facility] Comment on above: Performed By: #### B MP #### [facility] [address] [address] [address] Carrington Chandler Potassium [Moles/Vol] 3.8 mmol/L Normal 3.5-5.1 [facility] Comment on above: Performed By: #### B MP #### [facility] [address] [address] [address] Carrington Chandler Sodium [Moles/Vol] 136 mmol/L Normal 136-145 [facility] Comment on above: Performed By: #### B MP #### [facility] [address] [address] [address] Carrington Chandler Urea nitrogen [Mass/Vol] 16.0 mg/dL Normal 7.0-18.0 [facility] Comment on above: Performed By: #### B MP #### [facility] [address] [address] [address] Carrington Chandler Urea nitrogen/Creatinine [Mass ratio] 17.8 mg/mg Normal [facility] Comment on above: Performed By: #### B MP #### [facility] [address] [place] [address] Dr. Carrington Chandler XR CHEST 1 Von [...] TEE LEWIS Date: 2022-07-09 20:51 Normal [facility] AMYLASEon 07-08-2022 Amylase [Catalytic activity/Vol] 40 U/L Normal 25-115 [facility] Comment on above: Performed By: #### A MY, CMP, LIPA #### [facility] [address] [place] [address] Dr. Carrington Chandler CBC AUTO DIFFon 07-08-2022 BASO # 0.0 103/ul Normal 0.0-0.1 [facility] Comment on above: Performed By: #### C BC #### [facility] [address] [place] [address] Dr. Carrington Chandler Basophils/100 WBC (Bld) 0.3 % Normal 0.2-2.0 [facility] Comment on above: Performed By: #### C BC #### [facility] [address] [place] [address] Dr. Carrington Chandler EO # 0.1 103/ul Normal 0.0-0.7 [facility] Comment on above: Performed By: #### C BC #### [facility] [address] [place] [address] Dr. Carrington Chandler Eosinophils/100 WBC (Bld) 1.2 % Normal 0.9-7.0 [facility] Comment on above: Performed By: #### C BC #### [facility] [address] [place] [address] Dr. Carrington Chandler Erythrocyte distribution width (RBC) [Ratio] 12.9 % Normal 11.0-15.0 [facility] Comment on above: Performed By: #### C BC #### [facility] [address] [place] [address] Dr. Carrington Chandler Hematocrit (Bld) [Volume fraction] 43.2 % Normal 42.0-54.0 [facility] Comment on above: Performed By: #### C BC #### [facility] [address] [place] [address] Dr. Carrington Chandler Hemoglobin (Bld) [Mass/Vol] 14.4 g/dL Normal 14.0-18.0 [facility] Comment on above: Performed By: #### C BC #### [facility] [address] [place] [address] Dr. Carrington Chandler IG # 0.02 10e3/ul Normal 0.00-0.03 [facility] Comment on above: Performed By: #### C BC #### [facility] [address] [place] [address] Dr. Carrington Chandler IG % 0.3 % Normal 0.0-0.5 [facility] Comment on above: Performed By: #### C BC #### [facility] [address] [place] [address] Dr. Carrington Chandler LYMPH # 1.6 103/ul Normal 1.2-3.8 [facility] Comment on above: Performed By: #### C BC #### [facility] [address] [place] [address] Dr. Carrington Chandler Lymphocytes/100 WBC (Bld) 24.0 % Normal 20.5-60.0 [facility] Comment on above: Performed By: #### C BC #### [facility] [address] [place] [address] Dr. Carrington Chandler MANUAL DIFF REQ NO Normal [facility] Comment on above: Performed By: #### C BC #### [facility] [address] [place] [address] Dr. Carrington Chandler MCH (RBC) [Entitic mass] 30.2 pg Normal 25.9-34.0 [facility] Comment on above: Performed By: #### C BC #### [facility] [address] [place] [address] Dr. Carrington Chanlder MCHC (RBC) [Mass/Vol] 33.3 g/dL Normal 29.9-35.2 [facility] Comment on above: Performed By: #### C BC #### [facility] [address] [place] [address] Dr. Carrington Chandler MCV (RBC) [Entitic vol] 90.6 fL Normal 80.0-94.0 [facility] Comment on above: Performed By: #### C BC #### [facility] [address] [place] [address] Dr. Carrington Chandler MONO # 0.6 103/ul Normal 0.3-0.8 [facility] Comment on above: Performed By: #### C BC #### [facility] [address] [place] [address] Dr. Carrington Chandler Monocytes/100 WBC (Bld) 9.4 % Normal 1.7-12.0 [facility] Comment on above: Performed By: #### C BC #### [facility] [address] [place] [address] Dr. Carrington Chandler NEUT # 4.4 103/ul Normal 1.4-6.5 [facility] Comment on above: Performed By: #### C BC #### [facility] [address] [place] [address] Dr. Carrington Chandler Neutrophils/100 WBC (Bld) 64.8 % Normal 43.0-75.0 [facility] Comment on above: Performed By: #### C BC #### [facility] [address] [place] [address] Dr. Carrington Chandler Platelet mean volume (Bld) [Entitic vol] 9.5 fL Normal 9.5-13.5 [facility] Comment on above: Performed By: #### C BC #### [facility] [address] [place] [address] Dr. Carrington Chandler PLT 174 103/ul Normal 150-450 [facility] Comment on above: Performed By: #### C BC #### [facility] [address] [address] [address] Carrington Chandler RBC 4.77 106/ul Normal 4.70-6.10 [facility] Comment on above: Performed By: #### C BC #### [facility] [id number] Carrington Chandler WBC 6.7 103/ul Normal 4.0-11.0 [facility] Comment on above: Performed By: #### C BC #### [facility] [address] [address] [address] Carrington Chandler Covid-19 PCR ([facility])on 06-25 SARS-CoV-2 (COVID-19) RNA CHARLIE+probe Ql (Unsp spec) Not detected Normal NOT DETECTED [facility] Comment on above: Result Comment: When diagnostic [...] for this test is supported by the [place] of Health and Human Service's declaration that [...] used). Performed By: #### B MP #### [facility] [address] [address] [address] Carrington Chandler INFLUENZA A AND B AGon 07-08 INFLUANEGH SEE BELOW Normal [facility] Comment on above: Result Comment: Nega tive for Flu A protein angiten. Infection due to Flu A cannot be ruled out. Flu A angiten in the sample may be below the detection limit of the test. Performed By: #### B MP #### [facility] [address] [place] [address] Dr. Carrington Chandler [facility] SEE BELOW Normal [facility] Comment on above: Result Comment: Nega tive for Flu B protein antigen. Infection due to Flu B cannot be ruled out. Flu B antigen in the sample may be below the detection limit of the test. Performed By: #### B MP #### [facility] [address] [place] [address] Dr. Carrington Chandler INFLUENZA A AG Negative Normal NEGATIVE SEE COMMENT [facility] Comment on above: Performed By: #### B MP #### [facility] [address] [place] [address] Dr. Carrington Chandler INFLUENZA B AG Negative Normal NEGATIVE SEE COMMENT [facility] Comment on above: Performed By: #### B MP #### [facility] [address] [place] [address] Dr. Carrington Chandler INTERNAL CONTROLS Within Normal Limits Normal Wi thin Normal Limits [facility] Comment on above: Performed By: #### B MP #### [facility] [address] [place] [address] Dr. Carrington Chandler LIPASEon 07-08-2022 Lipase [Catalytic activity/Vol] 195.0 U/L Normal 73.0-393.0 [facility] Comment on above: Performed By: #### A MY, CMP, LIPA #### [facility] [address] [place] [address] Dr. Carrington Chandler PROF 14(COMP METB)on 022 Albumin [Mass/Vol] 3.4 g/dL Normal 3.4-5.0 [facility] Comment on above: Performed By: #### A MY, CMP, LIPA #### [facility] [address] [place] [address] Dr. Carringtno Chandler Albumin/Globulin [Mass ratio] 0.8 {ratio} Normal [facility] Comment on above: Performed By: #### A MY, CMP, LIPA #### [facility] [address] [place], [place] [id number] Dr. Carrington Chandler ALP [Catalytic activity/Vol] 61 U/L Normal 46-116 [facility] Comment on above: Performed By: #### A MY, CMP, LIPA #### [facility] [address] [place] [address] Dr. Carrington Chandler ALT [Catalytic activity/Vol] 26 U/L Normal 16-63 [facility] Comment on above: Performed By: #### A MY, CMP, LIPA #### [facility] [address] [place] [address] Dr. Carrington Chandler Anion gap [Moles/Vol] 11.0 mmol/L Normal [facility] Comment on above: Performed By: #### A MY, CMP, LIPA #### [facility] [address] [place] [address] Dr. Carrington Chandler AST [Catalytic activity/Vol] 30 U/L Normal 15-37 [facility] Comment on above: Performed By: #### A MY, CMP, LIPA #### [facility] [address] [place] [address] Dr. Carrington Chandler Bilirubin [Mass/Vol] 0.3 mg/dL Normal 0.2-1.0 [facility] Comment on above: Performed By: #### A MY, CMP, LIPA #### [facility] [address] [place] [address] Dr. Carrington Chandler Calcium [Mass/Vol] 8.4 mg/dL Critically low 8.5-10.1 [facility] Comment on above: Performed By: #### A MY, CMP, LIPA #### [facility] [address] [place] [address] Dr. Carrington Chandler Chloride [Moles/Vol] 102 mmol/L Normal 98-107 [facility] Comment on above: Performed By: #### A MY, CMP, LIPA #### [facility] [address] [place] [address] Dr. Carrington Chandler CO2 [Moles/Vol] 28.1 mmol/L Normal 21.0-32.0 [facility] Comment on above: Performed By: #### A MY, CMP, LIPA #### [facility] [address] [address] [address] Carrington Chandler Creatinine [Mass/Vol] 0.99 mg/dL Normal 0.70-1.30 [facility] Comment on above: Performed By: #### A MY, CMP, LIPA #### [facility] [address] [address] [address] Carrington Chandler EGFR-AF [place] >60 Normal >=60 [facility] Comment on above: Performed By: #### A MY, CMP, LIPA #### [facility] [address] [address] [address] Carrington Chandler EGFR-NON AF [place] >60 Normal >=60 [facility] Comment on above: Performed By: #### A MY, CMP, LIPA #### [facility] [address] [address] [address] Carrington Chandler Globulin (S) [Mass/Vol] 4.3 g/dL Normal [facility] Comment on above: Performed By: #### A MY, CMP, LIPA #### [facility] [address] [address] [address] Carrington Chandler Glucose [Mass/Vol] 107 mg/dL Critically high 74-106 [facility] Comment on above: Performed By: #### A MY, CMP, LIPA #### [facility] [address] [address] [address] Carrington Chandler Potassium [Moles/Vol] 4.1 mmol/L Normal 3.5-5.1 [facility] Comment on above: Performed By: #### A MY, CMP, LIPA #### [facility] [address] [address] [address] Carrington Chandler Protein [Mass/Vol] 7.7 g/dL Normal 6.4-8.2 [facility] Comment on above: Performed By: #### A MY, CMP, LIPA #### [facility] [address] [address] [address] Carrington Chandler Sodium [Moles/Vol] 137 mmol/L Normal 136-145 [facility] Comment on above: Performed By: #### A MY, CMP, LIPA #### [facility] [address] [place] [address] Dr. Carrington Chandler Urea nitrogen [Mass/Vol] 23.0 mg/dL Critically high 7.0-18.0 [facility] Comment on above: Performed By: #### A MY, CMP, LIPA #### [facility] [address] [place] [address] Dr. Carrington Chandler Urea nitrogen/Creatinine [Mass ratio] 23.2 mg/mg Normal [facility] Comment on above: Performed By: #### A MY, CMP, LIPA #### [facility] [address] [place] [address] Dr. Carrington Chandler CBC AUTO DIFFon 07-03-2022 BASO # 0.0 103/ul Normal 0.0-0.1 [facility] Comment on above: Performed By: #### C MP #### [facility] [address] [place] [address] Dr. Carrington Chandler Basophils/100 WBC (Bld) 0.5 % Normal 0.2-2.0 [facility] Comment on above: Performed By: #### C MP #### [facility] [address] [place] [address] Dr. Carrington Chandler EO # 0.3 103/ul Normal 0.0-0.7 [facility] Comment on above: Performed By: #### C MP #### [facility] [address] [place] [address] Dr. Carrington Chandler Eosinophils/100 WBC (Bld) 4.7 % Normal 0.9-7.0 [facility] Comment on above: Performed By: #### C MP #### [facility] [address] [place] [address] Dr. Carrington Chandler Erythrocyte distribution width (RBC) [Ratio] 12.7 % Normal 11.0-15.0 [facility] Comment on above: Performed By: #### C MP #### [facility] [address] [place] [address] Dr. Carrington Chandler Hematocrit (Bld) [Volume fraction] 38.8 % Critically low 42.0-54.0 [facility] Comment on above: Performed By: #### C MP #### [facility] [address] [place] [address] Dr. Carrington Chandler Hemoglobin (Bld) [Mass/Vol] 13.2 g/dL Critically low 14.0-18.0 [facility] Comment on above: Performed By: #### C MP #### [facility] [address] [place] [address] Dr. Carrington Chandler IG # 0.01 10e3/ul Normal 0.00-0.03 [facility] Comment on above: Performed By: #### C MP #### [facility] [address] [place] [address] Dr. Carrington Chandler IG % 0.2 % Normal 0.0-0.5 [facility] Comment on above: Performed By: #### C MP #### [facility] [address] [place] [address] Dr. Carrington Chandler LYMPH # 1.4 103/ul Normal 1.2-3.8 [facility] Comment on above: Performed By: #### C MP #### [facility] [address] [place] [address] Dr. Carrington Chandler Lymphocytes/100 WBC (Bld) 25.2 % Normal 20.5-60.0 [facility] Comment on above: Performed By: #### C MP #### [facility] [address] [place] [address] Dr. Carrington Chandler MANUAL DIFF REQ NO Normal [facility] Comment on above: Performed By: #### C MP #### [facility] [address] [place] [address] Dr. Carrington Chandler MCH (RBC) [Entitic mass] 30.3 pg Normal 25.9-34.0 [facility] Comment on above: Performed By: #### C MP #### [facility] [address] [place] [address] Dr. Carrington Chandler MCHC (RBC) [Mass/Vol] 34.0 g/dL Normal 29.9-35.2 [facility] Comment on above: Performed By: #### C MP #### [facility] [address] [place] [address] Dr. Carrington Chandler MCV (RBC) [Entitic vol] 89.2 fL Normal 80.0-94.0 [facility] Comment on above: Performed By: #### C MP #### [facility] [address] [place] [address] Dr. Carrington Chandler MONO # 0.6 103/ul Normal 0.3-0.8 [facility] Comment on above: Performed By: #### C MP #### [facility] [address] [place] [address] Dr. Carrington Chandler Monocytes/100 WBC (Bld) 10.2 % Normal 1.7-12.0 [facility] Comment on above: Performed By: #### C MP #### [facility] [address] [place] [address] Dr. Carrington Chandler NEUT # 3.3 103/ul Normal 1.4-6.5 [facility] Comment on above: Performed By: #### C MP #### [facility] [address] [place] [address] Dr. Carrington Chandler Neutrophils/100 WBC (Bld) 59.2 % Normal 43.0-75.0 [facility] Comment on above: Performed By: #### C MP #### [facility] [address] [place] [address] Dr. Carrington Chandler Platelet mean volume (Bld) [Entitic vol] 9.1 fL Critically low 9.5-13.5 [facility] Comment on above: Performed By: #### C MP #### [facility] [address] [place] [address] Dr. Carrington Chandler PLT 199 103/ul Normal 150-450 [facility] Comment on above: Performed By: #### C MP #### [facility] [address] [place] [address] Dr. Carrington Chandler RBC 4.35 106/ul Critically low 4.70-6.10 [facility] Comment on above: Performed By: #### C MP #### [facility] [address] [address] [address] Carrington Chandler WBC 5.5 103/ul Normal 4.0-11.0 [facility] Comment on above: Performed By: #### C MP #### [facility] [address] [address] [address] Carrington Chandler Covid-19 PCR ([facility])on SARS-CoV-2 (COVID-19) RNA CHARLIE+probe Ql (Unsp spec) Not detected Normal NOT DETECTED [facility] Comment on above: Result Comment: When diagnostic [...] for this test is supported by the [place] [employer]'s declaration that [...] used). Performed By: #### B MP #### [facility] [address] [place] [address] Dr. Carrington Chandler PROF 14(COMP METB)on 022 Albumin [Mass/Vol] 3.8 g/dL Normal 3.4-5.0 [facility] Comment on above: Performed By: #### C MP #### [facility] [address] [place] [address] Dr. Carrington Chandler Albumin/Globulin [Mass ratio] 1.0 {ratio} Normal [facility] Comment on above: Performed By: #### C MP #### [facility] [address] [place] [address] Dr. Carrington Chandler ALP [Catalytic activity/Vol] 69 U/L Normal 46-116 [facility] Comment on above: Performed By: #### C MP #### [facility] [address] [place] [address] Dr. Carrington Chandler ALT [Catalytic activity/Vol] 18 U/L Normal 16-63 [facility] Comment on above: Performed By: #### C MP #### [facility] [address] [place] [address] Dr. Carrington Chandler Anion gap [Moles/Vol] 13.3 mmol/L Normal [facility] Comment on above: Performed By: #### C MP #### [facility] [address] [place] [address] Dr. Carrington Chandler AST [Catalytic activity/Vol] 19 U/L Normal 15-37 [facility] Comment on above: Performed By: #### C MP #### [facility] [address] [place] [address] Dr. Carrington Chandler Bilirubin [Mass/Vol] 0.3 mg/dL Normal 0.2-1.0 [facility] Comment on above: Performed By: #### C MP #### [facility] [address] [place] [address] Dr. Carrington Chandler Calcium [Mass/Vol] 9.0 mg/dL Normal 8.5-10.1 [facility] Comment on above: Performed By: #### C MP #### [facility] [address] [place] [address] Dr. Carrington Chandler Chloride [Moles/Vol] 101 mmol/L Normal 98-107 [facility] Comment on above: Performed By: #### C MP #### [facility] [address] [place] [address] Dr. Carrington Chandler CO2 [Moles/Vol] 26.7 mmol/L Normal 21.0-32.0 [facility] Comment on above: Performed By: #### C MP #### [facility] [address] [place] [address] Dr. Carrington Chandler Creatinine [Mass/Vol] 1.06 mg/dL Normal 0.70-1.30 [facility] Comment on above: Performed By: #### C MP #### [facility] [address] [address] [address] Carrington Chandler EGFR-AF [place] >60 Normal >=60 [facility] Comment on above: Performed By: #### C MP #### [facility] [address] [address] [address] Carrington Chandler EGFR-NON AF [place] >60 Normal >=60 [facility] Comment on above: Performed By: #### C MP #### [facility] [address] [address] [address] Carrington Chandler Globulin (S) [Mass/Vol] 3.8 g/dL Normal [facility] Comment on above: Performed By: #### C MP #### [facility] [address] [address] [address] Carrington Chandler Glucose [Mass/Vol] 98 mg/dL Normal 74-106 [facility] Comment on above: Performed By: #### C MP #### [facility] [address] [address] [address] Carrington Chandler Potassium [Moles/Vol] 4.0 mmol/L Normal 3.5-5.1 [facility] Comment on above: Performed By: #### C MP #### [facility] [address] [address] [address] Carrington Chandler Protein [Mass/Vol] 7.6 g/dL Normal 6.4-8.2 [facility] Comment on above: Performed By: #### C MP #### [facility] [address] [address] [address] Carrington Chandler Sodium [Moles/Vol] 137 mmol/L Normal 136-145 [facility] Comment on above: Performed By: #### C MP #### [facility] [address] [address] [address] Carrington Chandler Urea nitrogen [Mass/Vol] 21.0 mg/dL Critically high 7.0-18.0 [facility] Comment on above: Performed By: #### C MP #### [facility] [address] [place] [address] Dr. Carrington Chandler Urea nitrogen/Creatinine [Mass ratio] 19.8 mg/mg Normal [facility] Comment on above: Performed By: #### C MP #### [facility] [address] [place] [address] Dr. Carrington Chandler XR CHEST 1 Von [...] CYNTHIA VASQUEZ Date: 2022-07-03 21:16 Normal [facility] CBC AUTO DIFFon 02-03-2022 BASO # 0.0 103/ul Normal 0.0-0.1 [facility] Comment on above: Performed By: #### C BC #### [facility] [address] [place] [address] Dr. Carrington Chandler Basophils/100 WBC (Bld) 0.3 % Normal 0.2-2.0 [facility] Comment on above: Performed By: #### C BC #### [facility] [address] [place] [address] Dr. Carrington Chandler EO # 0.1 103/ul Normal 0.0-0.7 [facility] Comment on above: Performed By: #### C BC #### [facility] [address] [place] [address] Dr. Carrington Chandler Eosinophils/100 WBC (Bld) 0.9 % Normal 0.9-7.0 [facility] Comment on above: Performed By: #### C BC #### [facility] [address] [place] [address] Dr. Carrington Chandler Erythrocyte distribution width (RBC) [Ratio] 13.9 % Normal 11.0-15.0 [facility] Comment on above: Performed By: #### C BC #### [facility] [address] [place] [address] Dr. Carrington Chandler Hematocrit (Bld) [Volume fraction] 40.4 % Critically low 42.0-54.0 [facility] Comment on above: Performed By: #### C BC #### [facility] [address] [place] [address] Dr. Carrington Chandler Hemoglobin (Bld) [Mass/Vol] 13.4 g/dL Critically low 14.0-18.0 [facility] Comment on above: Performed By: #### C BC #### [facility] [address] [place] [address] Dr. Carrington Chandler IG # 0.03 10e3/ul Normal 0.00-0.03 [facility] Comment on above: Performed By: #### C BC #### [facility] [address] [place] [address] Dr. Carrington Chandler IG % 0.3 % Normal 0.0-0.5 [facility] Comment on above: Performed By: #### C BC #### [facility] [address] [place] [address] Dr. Carrington Chandler LYMPH # 1.5 103/ul Normal 1.2-3.8 [facility] Comment on above: Performed By: #### C BC #### [facility] [address] [place] [address] Dr. Carrington Chandler Lymphocytes/100 WBC (Bld) 12.3 % Critically low 20.5-60.0 [facility] Comment on above: Performed By: #### C BC #### [facility] [address] [place] [address] Dr. Carrington Chandler MANUAL DIFF REQ NO Normal [facility] Comment on above: Performed By: #### C BC #### [facility] [address] [place] [address] Dr. Carrington Chandler MCH (RBC) [Entitic mass] 30.0 pg Normal 25.9-34.0 [facility] Comment on above: Performed By: #### C BC #### [facility] [address] [place] [address] Dr. Carrington Chandler MCHC (RBC) [Mass/Vol] 33.2 g/dL Normal 29.9-35.2 [facility] Comment on above: Performed By: #### C BC #### [facility] [address] [place] [address] Dr. Carrington Chandler MCV (RBC) [Entitic vol] 90.6 fL Normal 80.0-94.0 [facility] Comment on above: Performed By: #### C BC #### [facility] [address] [place] [address] Dr. Carrington Chandler MONO # 1.0 103/ul Critically high 0.3-0.8 [facility] Comment on above: Performed By: #### C BC #### [facility] [address] [place] [address] Dr. Carrington Chandler Monocytes/100 WBC (Bld) 8.5 % Normal 1.7-12.0 [facility] Comment on above: Performed By: #### C BC #### [facility] [address] [place] [address] Dr. Carrington Chandler NEUT # 9.2 103/ul Critically high 1.4-6.5 [facility] Comment on above: Performed By: #### C BC #### [facility] [address] [place] [address] Dr. Carrington Chandler Neutrophils/100 WBC (Bld) 77.7 % Critically high 43.0-75.0 [facility] Comment on above: Performed By: #### C BC #### [facility] [address] [place] [address] Dr. Carrington Chandler Platelet mean volume (Bld) [Entitic vol] 9.5 fL Normal 9.5-13.5 [facility] Comment on above: Performed By: #### C BC #### [facility] [address] [place] [address] Dr. Carrington Chandler PLT 204 103/ul Normal 150-450 [facility] Comment on above: Performed By: #### C BC #### [facility] [address] [place] [address] Dr. Carrington Chandler RBC 4.46 106/ul Critically low 4.70-6.10 [facility] Comment on above: Performed By: #### C BC #### [facility] [address] [place] [address] Dr. Carrington Chandler WBC 11.9 103/ul Critically high 4.0-11.0 [facility] Comment on above: Performed By: #### C BC #### [facility] [address] [place] [address] Dr. Carrington Chandler Covid-19 PCR ([facility])on 01-23 SARS-CoV-2 (COVID-19) RNA CHARLIE+probe Ql (Unsp spec) Not detected Normal NOT DETECTED [facility] Comment on above: Result Comment: When diagnostic [...] for this test is supported by the [employer] Manager of Health and Human Service's declaration that [...] used). Performed By: #### C VDTBH #### [facility] [address] [place] [address] Dr. Carrington Chandler PROF 14(COMP METB)on 022 Albumin [Mass/Vol] 3.7 g/dL Normal 3.4-5.0 [facility] Comment on above: Performed By: #### C MP #### [facility] [address] [address] [address] Carrington Chandler Albumin/Globulin [Mass ratio] 0.9 {ratio} Normal [facility] Comment on above: Performed By: #### C MP #### [facility] [address] [address] [address] Carrington Chandler ALP [Catalytic activity/Vol] 62 U/L Normal 46-116 [facility] Comment on above: Performed By: #### C MP #### [facility] [address] [place] [address] Dr. Carrington Chandler ALT [Catalytic activity/Vol] 21 U/L Normal 16-63 [facility] Comment on above: Performed By: #### C MP #### [facility] [address] [address] [address] Carrington Chandler Anion gap [Moles/Vol] 12.3 mmol/L Normal [facility] Comment on above: Performed By: #### C MP #### [facility] [address] [place] [address] Dr. Carrington Chandler AST [Catalytic activity/Vol] 13 U/L Critically low 15-37 [facility] Comment on above: Performed By: #### C MP #### [facility] [address] [address] [address] Carrington Chandler Bilirubin [Mass/Vol] 0.5 mg/dL Normal 0.2-1.0 [facility] Comment on above: Performed By: #### C MP #### [facility] [address] [address] [address] Carrington Chandler Calcium [Mass/Vol] 9.1 mg/dL Normal 8.5-10.1 [facility] Comment on above: Performed By: #### C MP #### [facility] [address] [place] [address] Dr. Carrington Chandler Chloride [Moles/Vol] 102 mmol/L Normal 98-107 [facility] Comment on above: Performed By: #### C MP #### [facility] [address] [address] [address] Carrington Chandler CO2 [Moles/Vol] 24.9 mmol/L Normal 21.0-32.0 [facility] Comment on above: Performed By: #### C MP #### [facility] [address] [address] [address] Carringotn Chandler Creatinine [Mass/Vol] 1.36 mg/dL Critically high 0.70-1.30 [facility] Comment on above: Performed By: #### C MP #### [facility] [address] [place] [address] Dr. Carrington Chandler EGFR-AF [place] >60 Normal >=60 [facility] Comment on above: Performed By: #### C MP #### [facility] [address] [address] [address] Carrington Chandler EGFR-NON AF [place] 53 mL/min/1.73m2 Critically low >=60 [facility] Comment on above: Performed By: #### C MP #### [facility] [address] [place] [address] Dr. Carrington Chandler Globulin (S) [Mass/Vol] 3.9 g/dL Normal [facility] Comment on above: Performed By: #### C MP #### [facility] [address] [address] [address] Carrington Chandler Glucose [Mass/Vol] 138 mg/dL Critically high 74-106 [facility] Comment on above: Performed By: #### C MP #### [facility] [address] [address] [address] Carrington Chandler Potassium [Moles/Vol] 4.2 mmol/L Normal 3.5-5.1 [facility] Comment on above: Performed By: #### C MP #### [facility] [address] [address] [address] Carrington Chandler Protein [Mass/Vol] 7.6 g/dL Normal 6.4-8.2 [facility] Comment on above: Performed By: #### C MP #### [facility] [id number] Carrington Chandler Sodium [Moles/Vol] 135 mmol/L Critically low 136-145 [facility] Comment on above: Performed By: #### C MP #### [facility] [id number] Carrington Chandler Urea nitrogen [Mass/Vol] 24.0 mg/dL Critically high 7.0-18.0 [facility] Comment on above: Performed By: #### C MP #### [facility] [id number] Carrington Chandler Urea nitrogen/Creatinine [Mass ratio] 17.6 mg/mg Normal [facility] Comment on above: Performed By: #### C MP #### [facility] [id number] Carrington Chandler XR CHEST 1 Von [...] by: DAREK MARX Date: 2022-02-03 02:09 Normal [facility] Vital Signs Date Time Vital Sign Value Performing Clinician Facility 08-06-2023 13:30-0500 Body height 171.45 cm Brock Modi Other [facility] Other 08-06-2023 13:30-0500 Body mass index (BMI) [Ratio] 35.95 kg/m2 Brock Modi Other [facility] Other 08-06-2023 13:30-0500 Body weight 105.69 kg Brock Modi Other [facility] Other 08-06-2023 13:30-0500 Diastolic blood pressure 66 mm[Hg] Brock Modi Other [facility] Other 08-06-2023 13:30-0500 SaO2% (BldA) [Mass fraction] 95 % Brock Modi Other [facility] Other 08-06-2023 13:30-0500 Systolic blood pressure 108 mm[Hg] Brock Modi Other [facility] Other 08-05-2023 14:23-0500 Diastolic blood pressure 76 mm[Hg] Christopher Sewell MD Work Phone: [employer] 08-05-2023 14:23-0500 Heart rate 70 /min Christopher Sewell MD Work Phone: [facility] 08-05-2023 14:23-0500 Systolic blood pressure 108 mm[Hg] Christopher Sewell MD Work Phone: [facility] 08-05-2023 14:22-0500 Body height 170.2 cm Christopher Sewell MD Work Phone: [facility] 08-05-2023 14:22-0500 Body mass index (BMI) [Ratio] 36.43 kg/m2 Christopher Sewell MD Work Phone: [facility] 08-05-2023 14:22-0500 Body weight 105.51 kg Christopher Sewell MD Work Phone: [facility] 08-05-2023 14:22-0500 Respiratory rate 18 /min Christopher Sewell MD Work Phone: [employer] 06-24-2023 11:00-0500 Body height 171.45 cm Brock Modi Other [facility] Other 06-24-2023 11:00-0500 Body mass index (BMI) [Ratio] 34.56 kg/m2 Brock Modi Other [facility] Other 06-24-2023 11:00-0500 Body temperature 98.1 [degF] Brock Modi Other [facility] Other 06-24-2023 11:00-0500 Body weight 101.61 kg Brock Modi Other [facility] Other 06-24-2023 11:00-0500 Diastolic blood pressure 67 mm[Hg] Brock Modi Other [facility] Other 06-24-2023 11:00-0500 SaO2% (BldA) [Mass fraction] 95 % Brock Modi Other [facility] Other 06-24-2023 11:00-0500 Systolic blood pressure 109 mm[Hg] Brock Modi Other [facility] Other 03-16-2023 11:30-0400 Body height 171.45 cm Brock Modi Other [facility] Other 03-16-2023 11:30-0400 Body mass index (BMI) [Ratio] 33.48 kg/m2 Brock Modi Other [facility] Other 03-16-2023 11:30-0400 Body weight 98.43 kg Brock Modi Other [employer] Other 03-16-2023 11:30-0400 Diastolic blood pressure 67 mm[Hg] Brock Modi Other [facility] Other 03-16-2023 11:30-0400 SaO2% (BldA) [Mass fraction] 93 % Brock Modi Other [facility] Other 03-16-2023 11:30-0400 Systolic blood pressure 114 mm[Hg] Brock Modi Other [facility] Other 02-04-2023 13:30-0400 Body height 171.45 cm Brock Modi Other [facility] Other 02-04-2023 13:30-0400 Body mass index (BMI) [Ratio] 33.64 kg/m2 Brock Modi Other [facility] Other 02-04-2023 13:30-0400 Body weight 98.88 kg Brock Modi Other [facility] Other 02-04-2023 13:30-0400 Diastolic blood pressure 67 mm[Hg] Brock Modi Other [facility] Other 02-04-2023 13:30-0400 SaO2% (BldA) [Mass fraction] 96 % Brock Mdoi Other [facility] Other 02-04-2023 13:30-0400 Systolic blood pressure 117 mm[Hg] Brock Modi Other [facility] Other 12-24-2022 14:08-0400 Body height 167.64 cm Brock Modi Work Phone: [facility] 250 DO Work Phone: 12-24-2022 14:08-0400 Body mass index (BMI) [Ratio] 35.02 kg/m2 Brock Modi Work Phone: [facility] 250 DO Work Phone: 12-24-2022 14:08-0400 Body surface area Derived from formula 2.07 m2 Brock Modi Work Phone: [facility] [employer] [facility] 250 DO Work Phone: 12-24-2022 14:08-0400 Body weight 98.43 kg Brock Modi Work Phone: [facility] 250 DO Work Phone: 12-24-2022 14:08-0400 Diastolic blood pressure 80 mm[Hg] Brock Modi Work Phone: [facility] [employer] 250 DO Work Phone: 12-24-2022 14:08-0400 Heart rate 115 /min Brock Modi Work Phone: [facility] [employer] 250 DO Work Phone: 12-24-2022 14:08-0400 Systolic blood pressure 124 mm[Hg] Brock Modi Work Phone: [facility] [employer] 250 DO Work Phone: 11-27-2022 11:00-0400 Body height 171.45 cm Wagner Marrufo Other [facility] Other 11-27-2022 11:00-0400 Body mass index (BMI) [Ratio] 33.48 kg/m2 Wagner Marrufo Other [facility] Other 11-27-2022 11:00-0400 Body weight 98.43 kg Wagner Marrufo Other [facility] Other 11-12-2022 12:45-0400 Body height 171.45 cm Brock Modi Other [facility] Other 11-12-2022 12:45-0400 Body mass index (BMI) [Ratio] 33.48 kg/m2 Brock Modi Other [facility] Other 11-12-2022 12:45-0400 Body weight 98.43 kg Brock Modi Other [facility] Other 11-12-2022 12:45-0400 Diastolic blood pressure 78 mm[Hg] Brock Modi Other [facility] Other 11-12-2022 12:45-0400 SaO2% (BldA) [Mass fraction] 92 % Brock Modi Other [facility] Other 11-12-2022 12:45-0400 Systolic blood pressure 122 mm[Hg] Brock Modi Other [facility] Other 10-21-2022 15:18-0400 Body height 167.64 cm Brock Modi Work Phone: [employer] 250 DO Work Phone: 10-21-2022 15:18-0400 Body mass index (BMI) [Ratio] 35.51 kg/m2 Brock Modi Work Phone: [employer] 250 DO Work Phone: 10-21-2022 15:18-0400 Body surface area Derived from formula 2.08 m2 Brock Modi Work Phone: [employer] 250 DO Work Phone: 10-21-2022 15:18-0400 Body weight 99.79 kg Brock Modi [facility]: [facility] Work Phone: 10-21-2022 15:18-0400 Diastolic blood pressure 70 mm[Hg] Brock Modi Work Phone: [facility] 250 DO Work Phone: 10-21-2022 15:18-0400 Heart rate 84 /min Brock Modi Work Phone: [facility] DO Work Phone: 10-21-2022 15:18-0400 Systolic blood pressure 126 mm[Hg] Brock Modi Work Phone: [facility] DO Work Phone: 10-15-2022 11:15-0400 Body height 171.45 cm Brock Modi Other [facility] Other 10-15-2022 11:15-0400 Body mass index (BMI) [Ratio] 33.33 kg/m2 Brock Modi Other [facility] Other 10-15-2022 11:15-0400 Body weight 97.98 kg Brock Modi Other [facility] Other 10-15-2022 11:15-0400 Diastolic blood pressure 84 mm[Hg] Brock Modi Other [facility] Other 10-15-2022 11:15-0400 SaO2% (BldA) [Mass fraction] 94 % Brock Modi Other [facility] Other 10-15-2022 11:15-0400 Systolic blood pressure 122 mm[Hg] Brock Modi Other [facility] Other 10-13-2022 11:57-0400 Body temperature 97.4 [degF] MD Brock Modi Work Phone: [facility] 10-13-2022 11:57-0400 Diastolic blood pressure 85 mm[Hg] MD Brock Modi Work Phone: [facility] 10-13-2022 11:57-0400 Heart rate 107 /min MD Brock Modi Work Phone: [facility] 10-13-2022 11:57-0400 Inhaled oxygen flow rate 2 L/min MD Brock Modi Work Phone: [facility] 10-13-2022 11:57-0400 Respiratory rate 17 /min MD Brock Modi Work Phone: [facility] 10-13-2022 11:57-0400 SaO2% (BldA) [Mass fraction] 97 % MD Brock Modi Work Phone: [facility] 10-13-2022 11:57-0400 Systolic blood pressure 125 mm[Hg] MD Brock Modi Work Phone: [facility] 10-13-2022 04:32-0400 Body weight 97.52 kg MD Brock Modi Work Phone: [facility] 10-10-2022 08:46-0400 65 1 Brock Modi Work Phone: [facility] 250 DO Work Phone: Comment on above: [id number] 10-10-2022 04:57-0400 Body height 170.18 cm MD Brock Modi Work Phone: [facility] 09-09-2022 14:30-0500 Body height 171.45 cm Wagner Marrufo Other [facility] [employer] Other 09-09-2022 14:30-0500 Body mass index (BMI) [Ratio] 34.41 kg/m2 Wagner Marrufo Other [facility] Other 09-09-2022 14:30-0500 Body weight 101.15 kg Wagner Marrufo Other [facility] Other 08-13-2022 12:15-0500 Body height 171.45 cm Brock Modi Other [facility] Other 08-13-2022 12:15-0500 Body mass index (BMI) [Ratio] 34.38 kg/m2 Brock Modi Other [facility] Other 08-13-2022 12:15-0500 Body weight 101.06 kg Brock Modi Other [facility] Other 08-13-2022 12:15-0500 Diastolic blood pressure 84 mm[Hg] Brock Modi Other [facility] Other 08-13-2022 12:15-0500 SaO2% (BldA) [Mass fraction] 97 % Brock Modi Other [facility] Other 08-13-2022 12:15-0500 Systolic blood pressure 132 mm[Hg] Brock Modi Other [facility] Other 07-30-2022 12:30-0500 Body height 171.45 cm Brock Modi Other [facility] Other 07-30-2022 12:30-0500 Body mass index (BMI) [Ratio] 32.71 kg/m2 Brock Modi Other [facility] Other 07-30-2022 12:30-0500 Body weight 96.16 kg Brock Modi Other [facility] Other 01-05-2023 12:30-0500 Diastolic blood pressure 80 mm[Hg] Brock Ly Other [facility] Other 07-30-2022 12:30-0500 SaO2% (BldA) [Mass fraction] 97 % Brock Ly Other [facility] Other 07-30-2022 12:30-0500 Systolic blood pressure 122 mm[Hg] Brock Ly Other [facility] Other Encounters Encounter Date Encounter Type Care Provider Facility Start: 08-24-2023 Orders Only Kendal Carmen LPN [facility] Comment on above: Abdominal aortic ane urysm (AAA) without rupture, unspecified part (CMS-HCC) (Primary Dx); Obstructive chronic bronchitis with exacerbation (CMS-HCC); Obesity with body mass index (BMI) of 30.0 to 39.9 Start: 08-06-2023 End: 08-06-2023 ambulatory Brock Modi Other [facility] Other Start: 08-06-2023 Office outpatient vi sit 15 minutes Brock Modi [facility] Start: 08-05-2023 End: 08-05-2023 ambulatory CHRISTOPHER SEWELL [facility] Other Start: 08-05-2023 Telephone encounter Brock Modi [facility] Start: 08-05-2023 End: 08-05-2023 Office outpatient visit 15 minutes Christopher Sewell MD Work Phone: [facility] Comment on above: Abdominal aortic ane urysm (AAA) without rupture, unspecified part (CMS-HCC) (Primary Dx); Obstructive chronic bronchitis with exacerbation (CMS-HCC); Obesity with body mass index (BMI) of 30.0 to 39.9; Chronic obstructive pulmonary disease, unspecified COPD type (CMS-HCC) Start: 07-16-2023 End: 07-16-2023 ambulatory Brock Modi Other [facility] Other Start: 07-16-2023 Telephone encounter Brock Ly [facility] Start: 06-24-2023 End: 06-24-2023 ambulatory Brock Modi Other [facility] Other Start: 06-24-2023 Office outpatient vi sit 15 minutes Brock Modi [facility] Start: 04-07-[address] Alok chauhan [place] Facility: Start: 04-02-2023 End: 04-02-2023 ambulatory Brock Modi Other [facility] Other Start: 04-02-2023 Telephone encounter Brock Ly [facility] Start: 03-19-2023 End: 03-19-2023 ambulatory Brock Modi Other [facility] Other Start: 03-19-2023 Telephone encounter Brock Modi [facility] Start: 03-16-2023 End: 03-16-2023 ambulatory Brock Modi Other [facility] Other Start: 03-16-2023 Office outpatient vi sit 15 minutes Brock Modi [facility] Start: 02-04-2023 End: 02-04-2023 ambulatory Brock Ly Other [facility] Other Start: 02-04-2023 Office outpatient vi sit 15 minutes Brock Modi [facility] Start: 01-29-2023 End: 01-29-2023 ambulatory Viral Yang Other [facility] Other Start: 01-29-2023 Telephone encounter Viral Yang [facility] Start: 01-27-2023 Rx Renewal Brock Modi Work Phone: [facility] 250 DO Work Phone: Start: 01-19-2023 Patient encounter procedure Brock Modi Work Phone: [facility]A [place] Work Phone: Start: 01-14-2023 End: 01-14-2023 ambulatory Brock Modi Other [facility] Other Start: 01-14-2023 Telephone encounter Brock Modi [facility] Start: 12-24-2022 Office outpatient vi sit 40 minutes Brock Modi Work Phone: [facility] 250 DO Work Phone: Start: 12-24-[address] Alok Webber Facility: Start: 12-04-2022 End: 12-04-2022 ambulatory Brock Modi Other [facility] Other Start: 12-04-2022 Telephone encounter Brock Modi [facility] Start: 12-03-2022 End: 12-03-2022 ambulatory Brock Modi Other [facility] Other Start: 12-03-2022 Telephone encounter Brock Modi [facility] Start: 11-27-2022 End: 11-27-2022 ambulatory Wagner Marrufo Other [facility] Other Start: 11-27-2022 Office outpatient vi sit 25 minutes Wagner Marrufo [facility] Start: 11-12-2022 End: 11-12-2022 ambulatory Brock Modi Other [facility] Other Start: 11-12-2022 Office outpatient vi sit 15 minutes Brock Modi [facility] Start: 11-04-2022 ambulatory JANINE Burton ty:H1 Start: 11-03-2022 End: 11-03-2022 ambulatory Adi Campos Facility:[facility] Start: 11-03-2022 End: 11-03-2022 ambulatory MD Brock Modi Work Phone: [facility] Work Phone: Start: 11-03-2022 End: 11-03-2022 Patient encounter procedure MD Brock Modi Work Phone: [facility] [place] Work Phone: Start: 11-02-2022 Patient encounter procedure Brock Modi Work Phone: [facility] 250 DO Work Phone: Start: 11-02-2022 ambulatory Janine Cunha Facility:1 [id number] Start: 10-29-2022 Chart Update Brock Modi Work Phone: [facility] 600 DO Work Phone: Start: 10-28-2022 End: 10-28-2022 ambulatory Janine Cunha Facility:[facility] Start: 10-28-2022 End: 10-28-2022 ambulatory MD Brock Modi Work Phone: [facility] Work Phone: Start: 10-28-2022 End: 10-28-2022 Patient encounter procedure MD Brock Modi Work Phone: [facility] [place] Work Phone: Start: 10-27-2022 End: 10-27-2022 ambulatory Brock Modi Other [facility] Other Start: 10-27-2022 Telephone encounter Brock BURGESS [facility] Start: 10-21-2022 Transitional care juan diego neri srvc 14 day discharge Brock Modi Work Phone: [facility] 250 DO Work Phone: Start: 10-21-2022 End: 10-21-2022 ambulatory Janine Cunha [facility] [employer] Other Start: 10-21-2022 Telephone encounter Adi Campos [facility] Start: 10-20-2022 End: 10-20-2022 ambulatory Adi Campos Other [facility] Other Start: 10-20-2022 Office outpatient ne w 45 minutes Kenyrenetta Beth [facility] Start: 10-15-2022 End: 10-15-2022 ambulatory Brock Modi Other [facility] Other Start: 10-15-2022 Office outpatient vi sit 15 minutes Brock Modi [facility] Start: 10-10-[address] Brock Modi Facility:[id number] Start: 10-10-2022 End: 10-13-2022 Evaluation and management of inpatient Farida Mischristina Facility:[facility] Start: 10-10-2022 End: 10-13-2022 Evaluation and management of inpatient MD Brock Modi Work Phone: [facility] Work Phone: Start: 10-10-2022 End: 10-10-2022 ambulatory COLIN TREADWELL Facility:H1 Start: 09-09-2022 End: 09-09-2022 ambulatory Wagner Marrufo Facility:[facility] Start: 09-09-2022 Office outpatient ne w 45 minutes Wagner Marrufo [facility] Start: 09-09-2022 End: 09-09-2022 ambulatory DO Wagner Marrufo Work Phone: [facility] Work Phone: Start: 09-09-2022 End: 09-09-2022 Patient encounter procedure DO Wagner Marrufo Work Phone: [facility] Start: 09-07-2022 End: 09-08-2022 ambulatory COLIN TREADWELL Facility:H1 Start: 08-13-2022 End: 08-13-2022 ambulatory Brock Modi Other [employer] Other Start: 08-13-2022 Office outpatient vi sit 15 minutes Brock Modi [facility] Start: 08-10-2022 End: 08-11-[address] BROCK MODI Facility:H1 Start: 07-30-2022 End: 07-30-2022 ambulatory Brock Modi Other [facility] [employer] Other Start: 07-30-2022 Office outpatient vi sit 25 minutes Brock Modi [facility] Start: 07-28-2022 End: 07-28-2022 ambulatory Brock Modi Other [facility] [employer] Other Start: 07-28-2022 Telephone encounter Brock Modi [facility] [employer] Start: 07-10-2022 End: 07-11-[address] CAR LIGHT Facility:H1 Start: 07-08-2022 End: 07-08-[address] JANELLE LAL . Facility:H1 Start: 07-05-2022 End: 07-05-[address] RUBÉN DALY Facility:H1 Start: 07-03-2022 End: 07-04-[address] ARLIN CUNHA Facility:H1 Start: 02-03-2022 End: 02-03-[address] ARLIN CUNHA Facility:H1 Patient encounter status Brock Modi Work Phone: [facility] 250 DO Work Phone: Procedures Date Procedure Procedure Detail Performing Clinician Start: 08-05-2023 Follow-up visit Follow-up CHRISTOPHER SEWELL Start: 11-03-2022 CT of thorax with contrast [...] 09-09-2022 X-ray of right knee DO Wagner Niru Work Phone: Appendectomy Brock Modi Work Phone: Cardiac catheterization Car Modi Work Phone: Plan of Treatment Date Care Activity Detail Author Start: 08-05-2024 Adult [facility] Start: 08-05-2024 [facility] Start: 02-17-2024 End: 02-17-2024 Patient encounter procedure 02/17/2024 10:10 AM EDT Office Visit [facility] [address] [place] [address] Rom Pierre MD [address], [address] [address] [facility] Start: 09-05-2023 Tobacco Counseling [facility] Start: 08-24-2023 End: 08-24-2024 CTA Abdominal vessels and Pelvis vessels W contrast IV CT angiogram abdomen and pelvis Imaging Routine Abdominal Aortic Aneurysm (Aaa) Without Rupture, Unspecified Part (Cms-Hcc) Obstructive chronic bronchitis with exacerbation (CMS-HCC) Obesity with body mass index (BMI) of 30.0 to 39.9 Expected: 08/24/2023, Expires: 08/24/2024 [employer] Work Phone: Comment on above: Expected: 08/24/2023 , Expires: 08/24/2024 Start: 08-22-2023 End: 08-22-2024 CTA Abdominal vessels and Pelvis vessels W contrast IV CT angiogram abdomen and pelvis Imaging Routine Abdominal Aortic Aneurysm (Aaa) Without Rupture, Unspecified Part (Cms-Hcc) Obstructive chronic bronchitis with exacerbation (CMS-HCC) Obesity with body mass index (BMI) of 30.0 to 39.9 Chronic obstructive pulmonary disease, unspecified COPD type (CMS-HCC) Expected: 08/22/2023, Expires: 08/22/2024 [employer] Work Phone: Comment on above: Expected: 08/22/2023 , Expires: 08/22/2024 Start: 04-07-2023 FUV, Provider: Alok Webber, Status: Pen, Time: 11:20 AM FUV, Provider: Alok Webber, Status: Pen, Time: 11:20 AM [facility] 250 DO Work Phone: Start: 03-26-2023 Influenza vaccination Influenza Vacc ine [facility] Start: 01-19-2023 FUV, Provider: Alok Webber, Status: Pen, Time: 2:30 PM FUV, Provider: Alok Webber, Status: Pen, Time: 2:30 PM -[facility] 250 DO Work Phone: Start: 11-02-2022 HOLTER 48, Provider: VERONICA LANGLEY AUDIO VISUAL SPECIALIST 1,[id number], Status: Pen, Time: 2:30 PM HOLTER 48, Provider: VERONICA LANGLEY AUDIO VISUAL SPECIALIST 1,[id number], Status: Pen, Time: 2:30 PM [facility] 250 DO Work Phone: Start: 10-13-2022 [facility] Start: 10-10-2022 Dilation of Coronary Artery, Two Arteries with Three Drug-eluting Intraluminal Devices, Percutaneous Approach Dilation of Coronary Artery, Two Arteries with Three Drug-eluting Intraluminal Devices, Percutaneous Approach [facility] Start: 10-10-2022 Fluoroscopy of Left Heart using Low Osmolar Contrast Fluoroscopy of Left Heart using Low Osmolar Contrast [facility] Start: 10-10-2022 Fluoroscopy of Multi ple Coronary Arteries using Low Osmolar Contrast Fluoroscopy of Multiple Coronary Arteries using Low Osmolar Contrast [facility] Start: 10-10-2022 Measurement of Cardi ac Sampling and Pressure, Left Heart, Percutaneous Approach Measurement of Cardiac Sampling and Pressure, Left Heart, Percutaneous Approach [facility] Start: 10-10-2022 Hospital admission [facility] Start: 10-10-2022 [facility] Start: 10-10-2022 Hospital admission [facility] Start: 10-10-2022 [facility] Start: 2010 Administration of varicella zoster vaccine Zoster (Shingles) Vaccine (1 of 2) [facility] Start: 1979 DTaP,Tdap and Td Vac cines (1 - Tdap) DTaP,Tdap and Td Vaccines (1 - Tdap) [facility] Start: 1978 Adult BMI Follow Up Plan [facility]: 1972 Depression Screening Depression Scre ening [facility] End: 08-22-2024 Creatinine includes GFR, serum Creatinine includes GFR, serum Lab Routine Abdominal Aortic Aneurysm (Aaa) Without Rupture, Unspecified Part ([facility]) Obstructive chronic bronchitis with exacerbation ([facility]) Obesity with body mass index (BMI) of 30.0 to 39.9 Chronic obstructive pulmonary disease, unspecified COPD type ([facility]) 1 Occurrences starting 08/22/2023 until 08/22/2024 [employer] Comment on above: 1 Occurrences starti ng 08/22/2023 until 08/22/2024 End: 08-24-2024 Creatinine includes GFR, serum Creatinine includes GFR, serum Lab Routine Abdominal Aortic Aneurysm (Aaa) Without Rupture, Unspecified Part ([facility]) Obstructive chronic bronchitis with exacerbation ([facility]) Obesity with body mass index (BMI) of 30.0 to 39.9 1 Occurrences starting 08/24/2023 until 08/24/2024 [employer] Work Phone: Comment on above: 1 Occurrences starti ng 08/24/2023 until 08/24/2024 Patient Education Coronary Angio plasty (DC) Coronary Stenting (DC) Angina (DC) Chest Pain (DC) Drug Eluting Stents [facility] Work Phone: Patient referral [facility] Work Phone: Immunizations Immunization Date Immunization Notes Care Provider Fa cility 05-02-2018 pneumococcal Conjuga te, unspecified formulation; Translations: [Need for prophylactic vaccination against Streptococcus pneumoniae (pneumococcus)] Brock Modi Other [employer] Other 05-02-2018 pneumococcal polysaccharide vaccine, 23 valent Brock Modi Work Phone: [address] Work Phone: 05-26-2017 pneumococcal conjuga te vaccine, 13 errol Modi Work Phone: -[facility] DO Work Phone: Payers Date Payer Category Payer Medicaid [id number] 2. [id number] 2022 Self-pay 2019 Unknown 1960 Unknown [id number] 2.16.84 0.1.655240.3.579.2.593 1960 Unknown [id number] 2.16.84 0.1.654477.3.579.2.593 1960 Unknown [id number] 2.16.84 0.1.891181.3.579.2.593 1960 Unknown [id number] 2.16.84 0.1.326070.3.579.2.593 1960 Unknown [id number] 2.16.84 0.1.766542.3.579.2.593 1960 Unknown [id number] 2.16.84 0.1.339050.3.579.2.593 1960 Unknown [id number] 2.16.84 0.1.990400.3.579.2.593 1960 Unknown [id number] 2.16.84 0.1.151341.3.579.2.593 1960 Unknown [id number] 2.16.84 0.1.782465.3.579.2.593 1960 Unknown [id number] 2.16. 840.1.028045.3.579.2.356 1960 Unknown [id number] 2.16. 840.1.377045.3.579.2.356 1960 Unknown [id number] 2.16. 840.1.324210.3.579.2.356 1960 Unknown [id number] 2.16. 840.1.993376.3.579.2.356 1960 Unknown [id number] 2.16. 840.1.200994.3.579.2.356 1960 Unknown [id number] 2.16.84 0.1.969924.3.579.2.1286 1959 Unknown [id number] 2. 16.840.1.957328.19 Unknown [id number] 2.16.8 40.1.942115.3.579.2.531 Unknown [id number] 2.16.8 40.1.924250.3.579.2.531 Unknown [id number] 2.16.8 40.1.239706.3.579.2.531 Unknown [id number] 2.16.8 40.1.893410.3.579.2.531 Social History Date Type Detail Facility Tobacco smoking stat [facility] Unknown if ever smoked [facility] Work Phone: Start: 1960 Sex Assigned At Male F [facility] Start: 08-05-[address] N [facility] [employer] Other Start: 10-10-2022 Tobacco smoking stat [facility] Smoker (finding) [facility] Start: 08-26-2022 End: 08-05-2023 Daily caffeine consumption Daily caffeine consumption -[facility] DO Work Phone: Comment on above: 1/2 gallon coffee da darrion; 5-6 cig daily; 8 cigs daily; Start: 08-08-1991 Tobacco smoking stat [facility] Smokes tobacco daily [facility] Start: 08-08-1991 History of tobacco use [facility] Start: 08-26-2022 Tobacco use and exposure Smokeless tobacco [facility] Start: 08-05-2023 Alcohol intake Lifetime non-d terra (finding) [facility] Within the past 12 months we worried whether our food would run out before we got money to buy more. Never True [facility] Start: 08-26-2022 Tobacco Comment pack and a nathanael f a day pt reports he is really trying to quit 09/04/21 [employer] [facility] Start: 1960 Sex Assigned At Not on file P [facility] Medical Equipment Procedure Code Equipment Code Equipment Origin al Text Equipment Identifier Dates Drug-eluting coronary artery stent, [id number]-bkralctspaloh-qp lymer-coated [id number] FDA Start: 10-10-2022 Drug-eluting coronary artery stent, gea-jzbfkglevcjnh-qt lymer-coated ()[id number] FDA Start: 10-10-2022 Drug-eluting coronary artery stent, cze-teskkqdcholnb-bh lymer-coated ()[id number] [id number] FDA Start: 10-10-2022 Goals Date Patient Goal Desired Activity /State Functional Status Date Assessment Result Facility 10-13-2022 Functional status Patient at Baseline [facility] Work Phone: Mental Status Date Assessment Result Facility 10-13-2022 Cognitive function Cognitive Sta tus Patient at Baseline [facility] Work Phone: Clinical Notes 07-30-2022 to 08-06-2023 Note Date & Type Note Facility 08-06-2023 Evaluation note Encounter Date Diagnosis Assessment Notes Jul, COPD with acute exacerbation (ICD-10 - J44.1) Hector has a zpack and medrol pack with him. Encouraged him to take these meds. States he has an albuterol HFA and albuterol for his nebulizer at home. Jul, Abdominal aortic aneurysm (AAA) without rupture, unspecified part (ICD-10 - I71.40) Discussed followup w Dr. Sewell in 6 months with imaging at that time. [employer] Other 01-11-2024 History of Present illness Narrative* Christopher Sewell MD - 08/05/2023 11:20 AM EST CHIEF COMPLAINT: Chief Complaint Patient presents with Follow-up Yearly follow up. Testing was in 08/2022. HISTORY OF PRESENT ILLNESS: Hector Gaspar . is a 63 y.o. male who presents to the office today for evaluation of Abdominal aortic aneurysm. Patient is doing well. He denies any abdominal pain or back pain that is not usual forhim. Patient denies any significant dizziness or low blood pressure. Patient had a duplex ultrasound of the abdominal aorta done recently. Patient has no new complaints. ALLERGIES: Allergies Allergen Reactions Cipro [Ciprofloxacin Hcl] Penicillins Swelling Pneumococcal Vaccine Nausea And Vomiting MEDICATIONS: Current Outpatient Medications Medication Sig Dispense Refill acetaminophen 325 mg capsule Take by mouth. albuterol (PROVENTIL HFA;VENTOLIN HFA) 90 mcg/actuation inhaler ALPRAZolam (XANAX) 1 mg tablet Take 1 tablet (1 mg total) by mouth 2 (two) times a day as needed for anxiety. aspirin 81 mg chewable tablet Chew 1 tablet (81 mg total) and swallow in the morning. atorvastatin (LIPITOR) 80 mg tablet Take 1 tablet (80 mg total) by mouth in the morning. BRILINTA 90 mg tablet Take 1 tablet (90 mg total) by mouth every 12 (twelve) hours. ciprofloxacin HCl (CIPRO) 500 mg tablet Take 1 tablet (500 mg total) by mouth in the morning and 1 tablet (500 mg total) before bedtime. losartan (COZAAR) 50 mg tablet Take 1 tablet (50 mg total) by mouth in the morning. ondansetron ODT (ZOFRAN-ODT) 4 mg disintegrating tablet azithromycin (ZITHROMAX) 250 mg tablet Take 250 mg by mouth. (Patient not taking: Reported on 09/04/2021) meloxicam (MOBIC) 15 mg tablet (Patient not taking: Reported on 09/04/2021) ondansetron (ZOFRAN) 4 mg tablet (Patient not taking: Reported on 09/04/2021) No current facility-administered medications for this visit. SOCIAL HISTORY: Social History Tobacco Use Smoking status: Every Day Packs/day: 1.5 Types: Cigarettes Start date: 08/08/1991 Smokeless tobacco: Never Tobacco comments: pack and a half a day pt reports he is really trying to quit 09/04/21 Substance Use Topics Alcohol use: Never REVIEW OF SYSTEMS: Review of Systems Constitutional: Negative for activity change, appetite change, chills, fatigue, fever and unexpected weight change. HENT: Negative for facial swelling and trouble swallowing. Eyes: Negative for visual disturbance. Respiratory: Negative for chest tightness and shortness of breath. Cardiovascular: Negative for chest pain and leg swelling. Gastrointestinal: Negative for abdominal pain. Genitourinary: Negative for flank pain and frequency. Musculoskeletal: Positive for arthralgias. Negative for back pain and joint swelling. Skin: Negative for color change, pallor, rash and wound. Neurological: Negative for dizziness, syncope, facial asymmetry, speech difficulty, weakness, light-headedness and numbness. Hematological: Negative for adenopathy. PHYSICAL EXAM: Physical Exam Vitals reviewed. Constitutional: General: He is not in acute distress. Neck: Vascular: No JVD. Cardiovascular: Rate and Rhythm: Normal rate. Pulses: Radial pulses are 2+ on the right side and 2+ on the left side. Dorsalis pedis pulses are 2+ on the right side and 2+ on the left side. Posterior tibial pulses are 2+ on the right side and 2+ on the left side. Heart sounds: No murmur heard. Comments: No carotid bruits. Pulmonary: Breath sounds: Normal breath sounds. Abdominal: Palpations: Abdomen is soft. There is no mass. Tenderness: There is no abdominal tenderness. Musculoskeletal: General: No tenderness. Cervical back: Neck supple. Skin: General: Skin is warm. Coloration: Skin is not pale. Findings: No erythema. Neurological: Mental Status: He is alert and oriented to person, place, and time. VASCULAR EXAM: Vascular: Right Lower Extremity Right lower extremity pulses DP: 2+ PT: 2+ Right lower extremity edema: none Left Lower Extremity Left lower extremity pulses DP: 2+ PT: 2+ Left lower extremity edema: none Right Upper Extremity Right upper extremity pulses Radial: 2+ Left Upper Extremity Left upper extremity pulses Radial: 2+ ASSESSMENT AND PLAN: Hector was seen today for follow-up. Diagnoses and all orders for this visit: Abdominal aortic aneurysm (AAA) without rupture, unspecified part ([facility]) - [facility] - [place], [place] - CT angiogram abdomen and pelvis; Future - Creatinine includes GFR, serum; Future Obstructive chronic bronchitis with exacerbation ([facility]) - CT angiogram abdomen and pelvis; Future - Creatinine includes GFR, serum; Future Obesity with body mass index (BMI) of 30.0 to 39.9 - CT angiogram abdomen and pelvis; Future - Creatinine includes GFR, serum; Future Chronic obstructive pulmonary disease, unspecified COPD type ([facility]) - CT angiogram abdomen and pelvis; Future - Creatinine includes GFR, serum; Future Patient with infrarenal abdominal aortic aneurysm. His most recent duplex ultrasound shows 5.2 cm and that was in June of 2023. At this point I will see him back in 6 months with a follow-up CT angiogram. [facility]* Encounter Date Diagnosis Assessment Notes Treatment Notes Treatment Clinical Notes Jun, Abdominal aortic aneurysm (AAA) without rupture, unspecified part (ICD-10 - I71.40) [employer] Other 11-30-2023 Evaluation note* Encounter Date Diagnosis Assessment Notes Treatment Notes Treatment Clinical Notes May, Abdominal aortic aneurysm (AAA) without rupture, unspecified part (ICD-10 - I71.40) Pt requests order as he is overdue for recheckUS. May, Bronchitis (ICD-10 - J40) Finish meds and treatment plan ordered by ER recently. Pt understands as he is improving. [employer] Other 08-25-2023 Evaluation note* Encounter Date Diagnosis Assessment Notes Treatment Notes Treatment Clinical Notes Feb, Acute cystitis without hematuria (ICD-10 - N30.00) [employer] Other 08-22-2023 Evaluation note* Encounter Date Diagnosis Assessment Notes Treatment Notes Treatment Clinical Notes Feb, Penile discharge (ICD-10 - R36.9) Pt request STI testing Feb, Dysuria (ICD-10 - R30.0) Rule out UTI based on symptoms. Will call w results. Push fluids. Feb, Chronic obstructive pulmonary disease, unspecified (ICD-10 - J44.9) Clinical diagnosis secondary to [id number] history of tobacco abuse. He will need PFTs in the future. Discussed missed appts w Dr. Campos and sleep lab. He states he will not followup there as he doesn't want to do a lung biopsy. His resp symptoms are improved overall. He expresses understanding on the severity of his condition and he chooses not to followup. [employer] Other 07-13-2023 Evaluation note* Encounter Date Diagnosis Assessment Notes Treatment Notes Treatment Clinical Notes Jan, COPD, moderate (ICD-10 - J44.9) Reminded him to keep appt w Dr. Campos on 02/10. Continue home medications. Avoid going outside with there is haze. Jan, Other sleep disorders (ICD-10 - G47.8) Gave number for the [facility] Sleep lab. He missed his last appt as his daughter had COVID. He will call to reschedule. [employer] Other 07-07-2023 Evaluation note* Encounter Date Diagnosis Assessment Notes Treatment Notes Treatment Clinical Notes Jan, Situational anxiety (ICD-10 - F41.8) [employer] Other 05-11-2023 Evaluation note* Encounter Date Diagnosis Assessment Notes Treatment Notes Treatment Clinical Notes November, Situational anxiety (ICD-10 - F41.8) [employer] Other 05-05-2023 Evaluation note* Encounter Date Diagnosis [...] any surgical interventions. Tobacco cessation program at [facility] has been recommended and offered as well as the national Quitline . We have discussed pharmacologic treatment including nicotine replacement therapy which can lead to a positive nicotine test as well as nicotine free medications both of which will need to be managed by their PCP. We have provided handout for the [facility] Tobacco Cessation Program. This discussion was limited to 5 minutes. [employer] Other 04-20-2023 Evaluation note* Encounter Date Diagnosis Assessment Notes Treatment Notes Treatment Clinical Notes Oct, Chronic obstructive pulmonary disease, unspecified COPD type (ICD-10 - J44.9) Will resume inhalers as prescribed. Keep appt w Dr. Campos. Notes frequent dyspnea, agrees to a prednisone course. Oct, INOCENTE (obstructive sleep apnea) (ICD-10 - G47.33) I called [facility]. He has to meet with the sleep specialist before the test is done, even though it was already ordered. I gave him the date of the appt. I also ordered the test. Oct, Coronary artery disease involving grindstone heart without angina pectoris, unspecified vessel or lesion type (ICD-10 - I25.10) Continued followup w [facility]. Continue time off work until breathing status is improved. [employer] Other 03-28-2023 Evaluation note* Encounter Date Diagnosis Assessment Notes Treatment Notes Treatment Clinical Notes Sep, Chronic obstructive pulmonary disease, unspecified COPD type (ICD-10 - J44.9) Trelegy samples and training please Sep, Atelectasis of right lung (ICD-10 - J98.11) Please obtain any previous chest CT done at [place] in the past, and have them load onto our PACS Sep, Tobacco use disorder (ICD-10 - F17.200) Sep, Coronary artery disease involving grindstone heart without angina pectoris, unspecified vessel or lesion type (ICD-10 - I25.10) [employer] Other 03-23-2023 Evaluation note* Encounter Date Diagnosis Assessment Notes Treatment Notes Treatment Clinical Notes Sep, Coronary artery disease involving grindstone coronary artery of grindstone heart without angina pectoris (ICD-10 - I25.10) [...] needs a titration study at the least. [employer] Other 03-21-2023 Hospital Discharge instructions Additional Instructions [...] doctor or pharmacist, without first calling the case making machine operator who implanted the stent. If you require [...] weight lifting, stair steppers, etc. until the case making machine operator approves these activities. Check with the case making machine operator on your first follow-up visit. CALL YOUR PHYSICIAN at [phone]: -If bleeding should occur from the catheter insertion site- apply pressure to the site then immediately call us. -Report any fever, redness, drainage, increased swelling, or firmness at the catheter insertion site. Some bruising or slight swelling may be present at the time of discharge. -Should arm or leg become cold, numb, white, or blue, contact the case making machine operator immediately. -IF you should experience episodes of [...] is recommended. Please call Central Scheduling at [phone] to schedule your appointment.] The attending case making machine operator or [facility] nurse clinician should provide you with specific instructions regarding activity, diet, medications, and further follow up for you. Follow the medication instructions provided on your discharge. If the dosages and instructions on this sheet differ from the dosage and instructions on the bottle, follow the instructions on the bottle. [facility] is not responsible for incorrect prescription information provided by the patient during their visit. Do not stop your medications without consulting your health care provider. Please take the list with you to your next doctor's appointment.[facility] Work Phone: 1(895) 831-572303-21-2023 Progress note Author Rubén Tatum [facility] October 13, 2022 9:02am Note Date/Time October 13, 2022 9:0 2am [facility] [address] [place] [address] Cardiology Progress Note Signed Patient: Hector Gaspar MR#: [id number] : 1960 Acct:[id number] Age/Sex: 62 / M Adm Date: 3 Loc: Room: [address] [place] [address] Type: ADM IN Attending Dr: Barbara Rivero [...] on postNSTEMI/PCI metoprolol tartrate. 5. Follow-up in [facility] within 10 days. From there [...] signed by Rubén Tatum MD> 10/13/22 0902 [facility] Work Phone: 1(474) 113-721703-20-2023 Progress note Author Barbara Rivero [facility] October 12, 2022 2:24pm Note Date/Time October 12, 2022 2:1 2pm [facility] [address] [place] [address] Hospitalist Progress Note Signed Patient: Hector Gaspar SR MR#: [id number] : 1960 Acct:[id number] Age/Sex: 62 / M Adm Date: 3 Loc: Room: [address] [place] [address] Type: ADM IN Attending Dr: Barbara Rivero [...] Syringe SUBCUT 10/12/23 09:59 Not Given DAILY@1000 [facility] Fentanyl Citrate 25 mcg 10/10/22 [...] this time. (3) Ventricular tachycardia seen on time clock inspector: Plan: No further episodes of ventricular tachycardia. [...] <Electronically signed by Barbara Rivero MD> 10/12/22 1420 [facility] Work Phone: 1(747) 929-694503-20-2023 Progress note Author Rubén Tatum [facility] October 12, 2022 10:00am Note Date/Time October 12, 2022 9:5 9am [facility] [address] [place] [address] Cardiology Progress Note Signed Patient: Hector Gaspar MR#: [id number] : 1960 Acct:[id number] Age/Sex: 62 / M Adm Date: 3 Loc: 4 Room: 5O9849-7 Type: ADM IN Attending Dr: Barbara Rivero [...] and lasted 6.9 seconds. This happened at 01 35. At the time the patient was awake. [...] pacing device. (3) Ventricular tachycardia seen on time clock inspector: Assessment/Problem Details: Stable no further wide-complex tachycardia [...] signed by Rubén Tatum MD> 10/12/22 1000 [facility] Work Phone: 1(166) 938-137803-19-2023 Progress note Author Barbara Rivero [facility] October 11, 2022 11:24am Note Date/Time October 11, 2022 11: 15am [facility] [address] [place] [address] Hospitalist Progress Note Signed Patient: Hector Gaspar SR MR#: [id number] : 1960 Acct:[id number] Age/Sex: 62 / M Adm Date: 3 Loc: Room: [address] [place] [address] Type: ADM IN Attending Dr: Barbara Rivero [...] smoking cessation. (3) Ventricular tachycardia seen on time clock inspector: Plan: Patient given potassium and magnesium supplement. [...] <Electronically signed by Barbara Rivero MD> 10/11/22 1129 [facility] Work Phone: 1(744) 450-665303-19-2023 Progress note Author Rubén Tatum [facility] October 11, 2022 9:41am Note Date/Time October 11, 2022 9:3 3am [facility] [address] [place] [address] Cardiology Progress Note Signed Patient: Hector Gaspar SR MR#: [id number] : 1960 Acct:[id number] Age/Sex: 62 / M Adm Date: 3 Loc: Room: [address] [place] [address] Type: ADM IN Attending Dr: Barbara Rivero [...] % (Auto) 63.8 Lymph % (Auto) 21.8 Nicholas % (Auto) 10.2 Eos % (Auto) 3.7 Baso % (Auto) 0.5 Nucleat RBC Rel Count 0.1 Neut # (Auto) 4.2 Lymph # (Auto) 1.4 Nicholas # (Auto) 0.7 Eos # (Auto) 0.2 [...] MPV Neut % (Auto) Lymph % (Auto) Nicholas % (Auto) Eos % (Auto) Baso % (Auto) Nucleat RBC Rel Count Neut # (Auto) Lymph # (Auto) Nicholas # (Auto) Eos # (Auto) Baso # [...] AV node (3) Ventricular tachycardia seen on time clock inspector: Assessment/Problem Details: Not entirely certain that this [...] By: <Electronically signed by Rubén Tatum MD> 10/11/22940 [facility] Work Phone: 1(458) 207-160703-18-2023 Progress note Author Barbara Rivero [facility] October 10, 2022 1:33pm Note Date/Time October 10, 2022 1:3 3pm [facility] [address] [place] [address] Event Note Signed Patient: Hector Gaspar SR MR#: [id number] : 1960 Acct:[id number] Age/Sex: 62 / M Adm Date: 3 Loc: 4 Room: [address] [place] [address] Type: ADM IN Attending Dr: Barbara Rivero [...] By: <Electronically signed by Barbara Rivero MD> 10/10/223 [facility] Work Phone: 1(775) 168-187003-18-2023 History of Present illness Narrative* Patient presents to the office ambulatory with steady gait. * This is initial in clinic follow-up at [facility]. * October 10, 2022 transferred to [facility] from [facility] d/t NSTEMI. Managed by with uneventful [...] medication regimen. He denies medication side effects. [facility] 250 DO Work Phone: 1(645) 517-832403-18-2023 Procedure [facility]03-18-2023 Procedure [facility]03-18-2023 Consult note Author Rubén Tatum [facility] October 10, 2022 9:54am Note Date/Time October 10, 2022 9:5 1am [facility] [address] [place] [address] Cardiology Consult Note Signed Patient: Hector Gaspar SR MR#: [id number] : 1960 Acct:[id number] Age/Sex: 62 / M Adm Date: 3 Loc: Room: [address] [place] [address] Type: ADM IN Attending Dr: Barbara Rivero MD Copies to: MD Barbara Barry MD Stephen M Tann, MD~ Cardiology HPI History of Present Illness Consult Date: 10/10/22 Reason for Consult: Nausea, non-STEMI HPI: Mr. Gaspar is a 62 year old male with multiple cardiac risk factors but no known prior coronary heart disease who presented to [place] emergency department lastnight complaining of nausea x2 [...] consistent nausea ever since. He presented to [place] emergency department last evening with these complaints. In the ER at [place] ECG showed Q waves in the inferolateral [...] trend upward to 6000 and then greater [id number]. Echocardiogram at bedside this morning shows normal [...] Lymph # (Auto) 1.4 1.4 (1.00-4.8) x10E3/uL Nicholas # (Auto) 0.6 0.6 (0.0-0.8) x10E3/uL Eos [...] Dysrhythmias Sinus rhythms and dysrhythmias: sinus rhythm MD, pacemaker, normal Myocardial infarction: inferior MD (old age indeterminate) and lateral MD (acuteor recent) A&P - Cardiology (1) NSTEMI [...] much for this kind consultation. Documented By: Rubné Tatum MD 10/10/22 0948 Signed By: <Electronically signed by Rubén Tatum MD> 10/10/22 0954 [facility] Work Phone: 1(261) 310-421203-18-2023 History and physical note Author Galo Dent [facility] October 10, 2022 7:28am Note Date/Time October 10, 2022 7:2 8am [facility] [address] [place] [address] Hospitalist H&P Signed Patient: Hector Gaspar SR MR#: [id number] : 1960 Acct:[id number] Age/Sex: 62 / M Adm Date: 3 Loc: 3T Room: [address] [place] [address] Type: ADM IN Attending Dr: Barbara Rivero MD Copies to: MD Barbara Barry MD Mushtaq Mahmood, MD~ HPI DATE OF EXAMINATION: 10/10/22 CHIEF COMPLAINT: Non-ST elevation MD HISTORY OF PRESENT ILLNESS: Patient is a 62-year-old gentleman with history of hypertension, heavy smoking about 1-1/2 pack for 45 years, COPD, strong family history of coronary artery disease, came to us from [place] emergency department last night. Patient presented to [...] The ER physician did talk to the case making machine operator here in [facility]. Patient was started on heparin drip, nitro patch was applied. He was sent to our hospital. Upon arrival in the [facility] patient complained about headache. Nitropatch was removed. [...] % (Auto) 27.5 % (.) 10/10/22 06:10 Nicholas % (Auto) 11.4 % (.) 10/10/22 06:10 Eos % (Auto) 4.4 % (.) 10/10/22 06:10 Baso % (Auto) 0.6 % (.) 10/10/22 06:10 Nucleat RBC Rel Count 0.1 /100 WBC (0-0.5) 10/10/22 06:10 Neut # (Auto) 2.9 x10E3/uL (1.8-7.7) 10/10/22 06:10 Lymph # (Auto) 1.4 x10E3/uL (1.00-4.8) 10/10/22 06:10 Nicholas # (Auto) 0.6 x10E3/uL (0.0-0.8) 10/10/22 06:10 [...] heartcath by cardiology today. I have consulted [facility]. He was offered nicotine patch. I [...] signed by Galo Dent MD> 10/10/22 0728 [facility] Work Phone: 1(840) 486-705202-15-2023 Evaluation note* Encounter Date Diagnosis Assessment Notes [...] in office today. Prior medical notes from [place] ED and history have been reviewed. At [...] any surgical interventions. Tobacco cessation program at [facility] has been recommended and offered as well as the national Quitline 7-085-KFTC-NOW. We have discussed pharmacologic treatment including nicotine replacement therapy which can lead to a positive nicotine test as well as nicotine free medications both of which will need to be managed by their PCP. We have provided handout for the [facility] Tobacco Cessation Program. This discussion was limited to 5 minutes. Aug, Other See orders for this visit as documented in the electronic medical record. [employer] Other 01-19-2023 Evaluation note* Encounter Date Diagnosis Assessment Notes Treatment Notes Treatment Clinical Notes Jul, Chronic obstructive pulmonary disease with acute exacerbation (ICD-10 - J44.1) Discussed diagnosis with patient. Medication profile and possible SE reviewed with patient. Take as directed. Keep appt w Dr. Castillo on 08/31. Notify office if not improving or worsening. Patient verbalizes understanding and agrees to treatment plan. [facility] [employer] Other 01-05-2023 Evaluation note* Encounter Date Diagnosis Assessment Notes Treatment Notes Treatment Clinical Notes Jul, Chronic obstructive pulmonary disease with acute exacerbation (ICD-10 - J44.1) [facility] [employer] Other Discharge summary Author Barbara Rivero [facility] October 13, 2022 2:14pm Note Date/Time October 13, 2022 2:0 9pm [facility] [address] [place] [address] Discharge Summary Signed Patient: Hector Gaspar SR MR#: [id number] : 1960 Acct:[id number] Age/Sex: 62 / M Adm Date: 3 Loc: Room: [address] [place] [address]: Barbara Rivero MD Copies to: [...] transferred from outside facility for non-ST elevated MD. He was started on heparin drip as [...] doctor or pharmacist, without first calling the case making machine operator who implanted the stent. If you require [...] weight lifting, stair steppers, etc. until the case making machine operator approves these activities. Check with the case making machine operator on your first follow-up visit. CALL YOUR PHYSICIAN at [phone]: -If bleeding should occur from the catheter insertion site- apply pressure to the site then immediately call us. -Report any fever, redness, drainage, increased swelling, or firmness at the catheter insertion site. Some bruising or slight swelling may be present at thetime of discharge. -Should arm or leg become cold, numb, white, or blue, contact the case making machine operator immediately. -IF you should experience episodes of [...] is recommended. Please call Central Scheduling at [phone] to schedule your appointment.] The attending case making machine operator or [facility] nurse clinician should provide you with specific instructions regarding activity, diet, medications, and further follow up for you. Follow the medication instructions provided on your discharge. If the dosages and instructions on this sheet differ from the dosage and instructions on the bottle, follow the instructions on the bottle. [facility] is not responsible for incorrect prescription information [...] BY MOUTH EVERY DAY Other Ambulatory Orders: NET LEAD ARCHITECT polysom procedure (Routine) Timeframe: 1 Week Location: Determined by Patient Ordered By: Barbara Rivero Follow Up: [facility] [Outside] (Left message with [facility] regarding need for [...] signed by Barbara Rivero MD> 10/13/22 1414 [facility] Work Phone: Evaluation noteNo assessment information available [facility] Work Phone: Evaluation noteNo InformationNort 8digits Other Evaluation note* Diagnosis Onset Date Resolution Status COPD (chronic obstructive pulmonary disease) acute Heart block AV complete acut e Hypertension acute Hypoxemia acute NSTEMI (non-ST elevated myocardial infarction) acute Sleep apnea in adult acute Tobacco abuse acute Ventricular tachycardia seen on time clock inspector acute [facility] Work Phone: Evaluation note* Diagnosis Abdominal aortic aneurysm (AAA) without rupture, unspecified part ([facility])- Primary Obstructive chronic bronchitis with exacerbation ([facility]) Obstructive chronic bronchitis with exacerbation Obesity with body mass index (BMI) of 30.0 to 39.9 Chronic obstructive pulmonary disease, unspecified COPD type ([facility]) [facility]* Diagnosis Abdominal aortic aneurysm (AAA) without rupture, unspecified part ([facility])- Primary Obstructive chronic bronchitis with exacerbation ([facility]) Obstructive chronic bronchitis with exacerbation Obesity with body mass index (BMI) of 30.0 to 39.9 documented in this encounter [facility]* Diagnosis Abdominal aortic aneurysm (AAA) without rupture, unspecified part ([facility])- Primary Obstructive chronic bronchitis with exacerbation ([facility]) Obstructive chronic bronchitis with exacerbation Obesity with body mass index (BMI) of 30.0 to 39.9 documented in this encounter [facility] SystemHistory general Narrative - Reported* Type Description Date [...] appendectomy 05/02/18 Hospitalization History SEE SURGICAL HX [employer] Other History general Narrative - Reported* Type [...] Stents 09/2022 Hospitalization History SEE SURGICAL HX [employer] Other Hisritu general Narrative - Reported* Type Description Date [...] Stents 09/2022 Hospitalization History SEE SURGICAL HX [facility] Other Hisyttr general Narrative - Reported* Type Description Date [...] History SEE SURGICAL HX Hospitalization History pneumonia [employer] Other InstructionsNot on filedocumented in this encounter [facility] [employer] SystemInstructionsNot on filedocumented in this encounter [facility] CenterBeeTV SystemInstructionsNot on filedocumented in this encounter [facility] Chief Complaint and Reason for Visit Chief Complaint M25.561 Elevated Troponin Reason for Visit COPD (chronic obstru ctive pulmonary disease) Heart block AV complete Hypertension Hypoxemia NSTEMI (non-ST elevated myocardial infarction) Sleep apnea in adult Tobacco abuse Ventricular tachycardia seen on time clock inspector Chief Complaint M25.561 Elevated Troponin I25.10 I10 E78.2 Reason for Visit COPD (chronic obstru ctive pulmonary disease) Heart block AV complete Hypertension Hypoxemia NSTEMI (non-ST elevated myocardial infarction) Sleep apnea in adult Tobacco abuse Ventricular tachycardia seen on time clock inspector Chief Complaint M25.561 Elevated Troponin I25.10 I10 E78.2 j98.11 Reason for Visit COPD (chronic obstru ctive pulmonary disease) Heart block AV complete Hypertension Hypoxemia NSTEMI (non-ST elevated myocardial infarction) Sleep apnea in adult Tobacco abuse Ventricular tachycardia seen on time clock inspector Family History Relationship Condition Age at Onset [...] December. 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 Summary Purpose Reason for Referral Specialty Diagnoses / Procedures Referred By Yang boothe Referred To Contact Radiology Diagnoses Abdominal aortic aneurysm (AAA) without rupture, unspecified part ([facility]) Obstructive chronic bronchitis with exacerbation ([facility]) Obesity with body mass index (BMI) of 30.0 to 39.9 Chronic obstructive pulmonary disease, unspecified COPD type ([facility]) Procedures CT angiogram abdomen and pelvis Christopher Sewell MD [address], [address] [address] Referral ID Status Reason Start Date Expiration Date V isits Requested Visits Authorized [id number] Pending Review 08/22/2023 08/21/2024 1 1 Reason *FU 07/28 5cm AAA - report scanned. Diagnosis 1 Abdominal aortic ane urysm (AAA) without rupture, unspecified part (I71.40) Referral Organization [facility] sunil Referring Provider First Name Brock Referring Provider Last Name Ly Referring Provider Specialty Family [facility] Referred Organization [facility] Referred Provider Christopher Sewell Referred Address [address] [place], [place],[address] Referred Provider Specialty Vascular Mir michelle Referral Priority Routine General Notes Helen Mendez 09:16:43 AM >received today, attachments made, ntoes locked, referral faxed Clinical Notes p: [phone] f: [phone] Additional Source Comments Care Teams (unrecognized sec [...] Active Adi Campos MD Attending Provider Active Baker Head Relationship Specialty [place] [address] [place] [address] PCP - General Family Medicine 09/03/21 Baker Head Relationship Specialty [place] [address] [place], [place] [id number] PCP - General Family Medicine 09/03/21 Baker Head Relationship Specialty [place] [address] [place], [place] [id number] PCP - General Family Medicine 09/03/21 Goals (unrecognized section and content) Goals may be documented in a n alternate sectionNo InformationNo InformationNo InformationNo InformationNo InformationNo InformationNo InformationNo InformationNo InformationNo InformationNo InformationNo InformationNo InformationNo InformationNo InformationNo InformationNo InformationNo InformationNo InformationNo InformationNo InformationNo InformationNo InformationNot on filedocumented as of this encounterNot on filedocumented as of this encounterNot on filedocumented as of this encounter REASON FOR VISIT (unrecogniz ed section and content) Reason Comments Follow-up Yearly follow up. Te sting was in 08/2022. Specialty Diagnoses / Procedures Referred By Yang boothe Referred To Contact Vascular Surgery Diagnoses Abdominal aortic aneurysm (AAA) without rupture, unspecified part ([facility]) Christopher Sewell MD [address] , [address] [address] Christopher Sewell MD [address] [place] [address] Referral ID Status Reason Start Date Expiration Date Visits Requested Visits Authorized [id number] Pending Review Specialty Services Required 3 07/21/2024 1 1 US resultTBHsleep apnea discussionrefillAlprazolamRecheck Right Knee* Reason for Visit: * Holter Monitor: * HECTOR is here for the application of a 48 hour Holter monitor. * Ordering Physician: JANINE CUNHA * Diagnosis: CAD SINUS PAUSE * [facility] equipment agreement signed. HECTOR understands monitor is to be returned on: 11-03-22 * Monitor number [id number] applied. * Holter monitor returned and downloaded. messagePulmonary Office NotesRef by Dr. Brock Modi [facility] - HAD HEART ATTACKRight Knee PainCheck Upnot feeling back to normal- discussion (unrecognized sect ion and content) No Status Records FoundNo Status Records FoundNo Status Records FoundNo Status Records FoundNo Status Records Found INFORMATION SOURCE (unrecogn ized section and content) DATE CREATED AUTHOR 11/07/2022 [facility] DATE CREATED AUTHOR AUTHOR'S ORGANIZ ATION 11/12/2022 [facility] DATE CREATED AUTHOR AUTHOR'S ORGANIZ ATION 01/02/2023 [employer] DATE CREATED AUTHOR AUTHOR'S ORGANIZ ATION 04/09/2023 [facility] DATE CREATED AUTHOR AUTHOR'S ORGANIZ ATION 08/08/2023 [facility] FOR RECORDS PERTAINING TO PATIENTS WHO ARE [...] BE BASED ON THE PRIMARY CLINICAL RECORDS. [facility] provides no warranty or guarantee of the accuracy or completeness of information in this document.
--- NOTE | 2023-09-01 21:00 | ECG_ITS ---
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
[2023-09-01 21:36] VITALS: PULSE 80
--- NOTE | 2023-09-01 21:41 | PC.NURSE ---
Audible wheezing noted but lungs are clear
--- NOTE | 2023-09-01 21:53 | ED_ITS ---
HPI - General Adult General Chief complaint: Upper Respiratory Infection Stated complaint: cough Time Seen by Provider: 09/01/23 21:18 Source: patient Mode of arrival: walk-in Limitations: no limitations History of Present Illness HPI narrative: This 63-year-old male with a history of chronic obstructive pulmonary disease and coronary artery disease status post stenting ?3 as well as an aortic aneurysm that is currently measuring around 5 cm presents for evaluation of an episode of dizziness earlier this evening with some increased shortness of breath with coughing and wheezing. He states that he has a sinus headache. He continues to smoke. He states he stopped using his respiratory treatments because they were making his symptoms worse and making him lose his breath at night. He has no abdominal pain or back pain. He states he did not have much of an appetite earlier today and felt dizzy and after eating something felt better. He has no haylie chest pain at this time but states he feels like he is deh ydrated. Related Data Home Medications Medication Instructions Recorded Confirmed alprazolam 0.5 mg tablet 0.25 mg PO BID PRN anxiety 01/24/23 09/01/23 aspirin 81 mg chewable tablet 1 tab PO DAILY 01/24/23 09/01/23 atorvastatin 80 mg tablet 80 mg PO QPM 01/24/23 09/01/23 losartan 100 mg tablet mg 09/01/23 metoprolol tartrate 25 mg tablet mg 09/01/23 spironolactone 25 mg tablet mg 09/01/23 ticagrelor 90 mg tablet (Brilinta) mg 09/01/23 valsartan 160 mg tablet mg 09/01/23 Previous Rx's Medication Instructions Recorded ondansetron 4 mg disintegrating 4 mg PO Q6H PRN nausea and 01/24/23 tablet vomiting #20 tabs ondansetron 4 mg disintegrating 4 mg PO Q8H PRN nausea and 06/23/23 tablet vomiting 4 days #14 tabs methylprednisolone 4 mg tablets in See Rx Instructions .Route 06/28/23 a dose pack (Medrol (Maury)) .COMPLEX #21 ea Allergies Allergy/AdvReac Type Severity Reaction Status Date / Time Penicillins Allergy Severe Verified 09/01/23 20:56 pneumonia shot AdvReac Intermediate Uncoded 09/01/23 20:56 Review of Systems ROS Status of ROS 10 or more systems reviewed and unremark able except as noted in history and below [facility] Medical History (Updated 09/01/23 @ 23:29 by Penelope Diaz MD) Hypercholesterolemia ?E78.00 - Pure hypercholesterolemia, unspecified (ICD-10) COPD (chronic obstructive pulmonary disease) ?J44.9 - Chronic obstructive pulmonary disease, unspecified (ICD-10) Social History Smoking status: Current every day smoker Exam Narrative Exam Narrative: Nurses note and vital signs reviewed and patient is not hypoxic.Blood pressure is mildly elevated at 145/90 General: The patient appears well and in no apparent distress. Patient is resting comfortably on cart. He speaks in complete sentences, occasional moist cough noted Skin: Warm, dry, no pallor noted. There is no rash noted. Tobacco stained fingers and mustache Head: Normocephalic, atraumatic Eye: Normal conjunctiva, no drainage, EOMI. PERRL Ears, Nose, Mouth, and Throat: oral mucosa is slighlty dry Cardiovascular: Regular Rate and Rhythm S1S2, no murmurs, rubs or gallops, pulses are brisk and equal bilaterally Respiratory: Patient is in no distress, no accessory muscle use, coarse lung sounds with bilateral lower lobe expiratory wheezing and rhonchi Back: non-tender, no CVA tenderness bilaterally to percussion. GI: Normal bowel sounds, no tenderness to palpation, no masses appreciated. No rebound, guarding, or rigidity noted. Musculoskeletal: The patient has no evidence of calf tenderness, no pitting edema, symmetrical pulses noted bilaterally Neurological: A&O x4, normal speech Psychiatric: Cooperative Constitutional Vital Signs, click to edit/add: Last Vital Signs Temp 97.9 F 09/01/23 23:20 Pulse 78 09/01/23 23:20 Resp 18 09/01/23 23:20 BP 126/69 09/01/23 23:20 Pulse Ox 97 09/01/23 23:20 O2 Del Method Room Air 09/01/23 23:20 Course Vital Signs Vital signs: Vital Signs Temperature 97.5 F L 09/01/23 20:51 Pulse Rate 86 09/01/23 20:51 Respiratory Rate 18 09/01/23 20:51 Blood Pressure 145/90 H 09/01/23 20:51 Pulse Oximetry 97 09/01/23 20:51 Oxygen Delivery Method Room Air 09/01/23 20:51 Temperature 97.9 F 09/01/23 23:20 Pulse Rate 78 09/01/23 23:20 Respiratory Rate 18 09/01/23 23:20 Blood Pressure 126/69 09/01/23 23:20 Pulse Oximetry 97 09/01/23 23:20 Oxygen Delivery Method Room Air 09/01/23 23:20 Medical Decision Making MDM Narrative Medical decision making narrative: This 63-year-old male with a history of coronary artery disease and chronic obstructive pulmonary disease who continues to smoke presents for evaluation of an episode of dizziness that resolved after eating, feeling dehydrated and being more short of breath than usual. He is not using his medications for his chronic obstructive pulmonary disease because he states he thinks is making him worse. He denies any haylie chest pain. He has no abdominal pain or back pain. He does have some expiratory wheezing in the lower lobes of his lungs. Due to his symptoms and history of heart disease as diseases ordered. EKG is a sinus rhythm with occasional PVCs at 80 bpm with no acute changes. An IV was placed and he was medicated with IV fluids, IV Solu-Medrol and given a DuoNeb treatment. R outine labs are reviewed. He has a normal white count and hemoglobin. His electrolytes are normal and at his baseline Mild elevation and BUN and creatinine. Troponin and BNP are normal. CXR shows chronic changes with no acute infiltrate. He was re-evaluated and is feeling better, he is still wheezing but moving better air and is agreeable to an additional breathing treatment. He will be discharged with Rx for Medrol dose pack. He has a nebulizer at home and the medications for it. He states that he has a follow up appointment tomorrow with his PCP and will return to the ED as needed for worsening symptoms. Lab Data Labs: Lab Results 09/01/23 Range/Units 21:59 WBC 5.3 (4.0-11.0) 10^3/uL RBC 3.82 L (4.70-6.10) 10^6/uL Hgb 11.7 L (14.0-18.0) g/dL Hct 35.1 L (42.0-54.0) % MCV 91.9 (80.0-94.0) fL MCH 30.6 (25.9-34.0) pg MCHC 33.3 (29.9-35.2) g/dL RDW 13.0 (11.0-15.0) % Plt Count 215 (150-450) 10^3/uL MPV 9.3 L (9.5-13.5) fL Neut % (Auto) 51.3 (43.0-75.0) % Lymph % (Auto) 28.3 (20.5-60.0) % Hidalgo % (Auto) 14.1 H (1.7-12.0) % Eos % (Auto) 5.1 (0.9-7.0) % Baso % (Auto) 1.0 (0.2-2.0) % Neut # (Auto) 2.7 (1.4-6.5) 10^3/uL Lymph # (Auto) 1.5 (1.2-3.8) 10^3/uL Hidalgo # (Auto) 0.7 (0.3-0.8) 10^3/uL Eos # (Auto) 0.3 (0.0-0.7) 10^3/uL Baso # (Auto) 0.1 (0.0-0.1) 10^3/uL Abs Immat Gran (auto) 0.01 (0.00-0.03) 10^3/uL Imm/Tot Granulo (auto) 0.2 (0.0-0.5) % Sodium 141 (136-145) mmol/L Potassium 4.4 (3.5-5.1) mmol/L Chloride 106 (98-107) mmol/L Carbon Dioxide 28.3 (21.0-32.0) mmol/L Anion Gap 11.1 BUN 23.0 H (7.0-18.0) mg/dL Creatinine 1.56 H (0.70-1.30) mg/dL Est GFR ( Amer) 55 L (>=60) Est GFR (Non-Af Amer) 45 L (>=60) BUN/Creatinine Ratio 14.7 Glucose 96 (74-106) mg/dL Calcium 9.2 (8.5-10.1) mg/dL Total Bilirubin 0.3 (0.2-1.0) mg/dL AST 21 (15-37) U/L ALT 39 (16-63) U/L Alkaline Phosphatase 67 (46-116) U/L Troponin I High Sens 11.9 (4.0-76.1) pg/mL NT-Pro-B Natriuret Pep 173.0 (<=900.0) pg/mL Total Protein 7.2 (6.4-8.2) g/dL Albumin 3.4 (3.4-5.0) g/dL Globulin 3.8 g/dL Albumin/Globulin Ratio 0.9 ECG Data Attestation: I personally reviewed and interpreted this ECG as follows: (Sinus rhythm at 80 beats for minute, occasional PVCs, normal axis, no acute ST segment elevation or T-wave inversion) Discharge Plan Discharge Chief Complaint: Upper Respiratory Infection Clinical Impression: COPD (chronic obstructive pulmonary disease) Patient Disposition: Home, Self-Care Time of Disposition Decision: 23:29 Condition: Good Prescriptions / Home Meds: No Action alprazolam 0.5 mg tablet 0.25 mg PO BID PRN (Reason: anxiety) aspirin 81 mg tablet,chewable 1 tab PO DAILY atorvastatin 80 mg tablet 80 mg PO QPM ondansetron 4 mg tablet,disintegrating 4 mg PO Q6H PRN (Reason: nausea and vomiting) Qty: 20 0RF methylprednisolone [Medrol (Maury)] 4 mg tablets,dose pack See Rx Instructions .ROUTE .COMPLEX Qty: 21 0RF Rx Instructions: Taper as directed spironolactone 25 mg tablet losartan 100 mg tablet valsartan 160 mg tablet metoprolol tartrate 25 mg tablet Brilinta 90 mg tablet ondansetron 4 mg tablet,disintegrating 4 mg PO Q8H PRN (Reason: nausea and vomiting) 4 Days Qty: 14 0RF Instructions: COPD (Chronic Obstructive Pulmonary Disease) (ED) Stand Alone Forms: Portal Instructions Referrals: Cielo Devries MD [Primary Care Provider] - 1 week
[2023-09-01] MEDS: 0.9 % SODIUM CHLORIDE 1,000 ML 1000 ML IV (22:07)
[2023-09-01] MEDS: METHYLPREDNISOLONE SOD SUCC PF 125 MG/2 ML VIAL IVP (22:07)
[2023-09-01 22:15] VITALS: BP 118/63; PULSE 74; RESP 22; O2SAT 95
[2023-09-01] MEDS: IPRATROPIUM/ALBUTEROL SULFATE 3 ML AMPUL.NEB IH (22:16)
[2023-09-01 22:17] LABS: Basophils Absolute Auto 0.1 10^3/uL (0.0-0.1); Eosinophils Absolute Auto 0.3 10^3/uL (0.0-0.7); Eosinophils Percent Auto 5.1 % (0.9-7.0); Hematocrit 35.1 % (42.0-54.0); Hemoglobin 11.7 g/dL (14.0-18.0); Immature Granulocytes Abs Auto 0.01 10^3/uL (0.00-0.03); Immature Granulocytes Pct Auto 0.2 % (0.0-0.5); Lymphocytes Absolute Auto 1.5 10^3/uL (1.2-3.8); Lymphocytes Percent Auto 28.3 % (20.5-60.0); Mean Corpuscular HGB Conc 33.3 g/dL (29.9-35.2); Mean Corpuscular Hemoglobin 30.6 pg (25.9-34.0); Mean Corpuscular Volume 91.9 fL (80.0-94.0); Mean Platelet Volume 9.3 fL (9.5-13.5); Monocytes Absolute Auto 0.7 10^3/uL (0.3-0.8); Monocytes Percent Auto 14.1 % (1.7-12.0); Neutrophils Absolute Auto 2.7 10^3/uL (1.4-6.5); Neutrophils Percent Auto 51.3 % (43.0-75.0); Platelet Count 215 10^3/uL (150-450); Red Blood Count 3.82 10^6/uL (4.70-6.10); White Blood Count 5.3 10^3/uL (4.0-11.0)
[2023-09-01 22:19] VITALS: PULSE 70; RESP 18; O2SAT 98
[2023-09-01 22:38] LABS: Alanine Aminotransferase 39 U/L (16-63); Albumin Globulin Ratio 0.9; Albumin Level 3.4 g/dL (3.4-5.0); Alkaline Phosphatase 67 U/L (46-116); Anion Gap 11.1; Aspartate Amino Transferase 21 U/L (15-37); BUN Creatinine Ratio 14.7; Bilirubin Total 0.3 mg/dL (0.2-1.0); Calcium 9.2 mg/dL (8.5-10.1); Carbon Dioxide 28.3 mmol/L (21.0-32.0); Chloride 106 mmol/L (98-107); Estimated GFR (African America 55 (>=60); Estimated GFR (Non-African Ame 45 (>=60); Globulin 3.8 g/dL; Glucose 96 mg/dL (74-106); Potassium 4.4 mmol/L (3.5-5.1); Sodium 141 mmol/L (136-145); Total Protein 7.2 g/dL (6.4-8.2); Troponin I High Sensitivity 11.9 pg/mL (4.0-76.1)
--- NOTE | 2023-09-01 22:49 | XR_ITS ---
The [address] [address] Patient Name: HECTOR HIGHTOWER MRN: [id number] date: 1960 Sex: M Assigned Patient Location: ER Current Patient Location: ER Accession/Order Number: [id number] Exam Date: 09/01/2023 23:05 Report Date: 09/01/2023 23:27 At the request of: CIARA MARKER Procedure: XR chest 2V CXR HISTORY: Flulike symptoms. COMPARISON: None. TECHNIQUE: 2 view of the chest submitted for review. FINDINGS: There is prominence of interstitial lung markings. Lungs are adequately expanded. Lines and tubes: None Lungs are hyperaerated. No acute focal infiltrate. No effusion. Cardiomediastinal silhouette within normal limits. Pulmonary vascularity is prominent. Osseous structures are normal for age. XR/XR chest 2V IMPRESSION: Mild prominence of interstitial lung markings which can be seen in cases of fluid overload/pulmonary edema, viral pneumonia, chronic interstitial lung disease and/or combination of the above. Please correlate clinically. Electronically authenticated by: SARTHAK DOMINGUEZ Date: 09/01/2023 23:27
[2023-09-01 23:20] VITALS: BP 126/69; PULSE 78; RESP 18; TEMP 36.6; O2SAT 97
[2023-09-01] MEDS: ALBUTEROL SULFATE 2.5 MG/3 ML VIAL NEB IH (23:43)
[2023-09-01 23:44] VITALS: PULSE 80; RESP 18
== END 2023-09-02 00:01 | disposition home or self-care (01) ==
PROVIDERS: Emergency Provider Emergency Medicine; PCP Family Medicine
DX: J44.9 Chronic obstructive pulmonary disease, unspecified (principal); R06.02 Shortness of breath; R42 Dizziness and giddiness; I25.10 Atherosclerotic heart disease of native coronary artery without angina pectoris; Z95.5 Presence of coronary angioplasty implant and graft; I71.9 Aortic aneurysm of unspecified site, without rupture; F17.200 Nicotine dependence, unspecified, uncomplicated; Z79.82 Long term (current) use of aspirin; E78.00 Pure hypercholesterolemia, unspecified; Z91.128 Patient's intentional underdosing of medication regimen for other reason
CPT/HCPCS: 36415; 71046; 80053; 83880; 84484; 85025; 93005; 94640; 96361; 96374; 99285; J2930

== ENCOUNTER 2023-10-09 21:34 | Emergency (ER) | payer OTHER, SELFPAY ==
[2023-10-09 21:40] VITALS: PULSE 77
--- OUTSIDE RECORDS SUMMARY | 2023-10-09 21:40 | XMS_ITS | CCD ---
Author Name Unknown Address [address] [place] [address] Organization [facility] Care Team Providers Care [employer] Name Role Phone DO Wagner Marrufo Attending Provider Brock Modi Unavailable Wagner Marrufo Unavailable DO Wagner Marrufo Attending Provider MD Brock Modi Primary Care Provider MD Filipe [facility] Admit Provider MD Barbara Rivero Attending Provider Brock Modi Unavailable Unavailable Unavailable Adi Campos Unavailable ZELALEM Faustin Attending Provider MD Adi Campos Attending Provider DR CAR [...] MODI, DR BROCK Urbano Primary Care Unavailable LONNIE DR ARLIN Simpson Consulting Unavailable LONNIE, DR [...] Daniel Consulting Unavailable Wilma Blanco Consulting Unavailable Beth, Kamrenetta Admitting Unavailable Adi Campos Attending Unavailable Brock [...] Ricardo Modi, Dr. Brock Case Primary Care Unav ailable CHRISTOPHER SEWELL Attending Unavailable CHRISTOPHER SEWELL Referring Unavailable BROCK MODI Primary Care Unavailable Brock Modi MD Primary Care Provider [phone] Brock Modi MD Primary Care Provider [phone] ALOK WEBBER Attending Unavailable BROCK MODI Primary Care Unavailable CHRISTOPHER SEWELL Referring Unavailable BROCK MODI Primary Care Unavailable Allergies Allergy Classification Reported Allergen(s) Allergy Type Date of Onset Reaction(s) Facility (20 sources) Ciprofloxacin Drug Allergy Nausea & Blurred vision, Comment:nausea and blurred vision [facility] Other (20 sources) Substance with penicillin structure and antibacterial mechanism of action (substance) Drug allergy Edema, Unknown [facility] Other (20 sources) Pneumococcal 7-Zulma Conj Vacc Drug allergy undefined, Comment:pneumo nococcal 23 [facility] Other (20 sources) Penicillins; Translations: [Penicillins] Propensity to adverse reactions 05-29-20 13 Swelling, [facility] (11 sources) Pneumococcal vaccine; Translations: [pneumococcal vaccine] Drug Allergy 08-08-19 22 Nausea And Vomiting, [facility] (8 sources) Pneumococcal vaccine; Translations: [Pneumococcal Vaccines] Drug Allergy [place] [address] DO Work Phone: (2 sources) Penicillin Drug Allergy 07-29-19 16 Unknown [facility] Other (2 sources) patient allergy list reviewed by nurse or physicia Propensity to adverse reactions 07-29-19 16 Comment:Done [facility] Other (2 sources) Allergies Reconciled Propensity to adverse reactions Unknown [facility] Other (5 sources) Ciprofloxacin; Translations: [CIPROFLOXACIN HCL] Drug Allergy [...] AeroChamber MV - as directed Jul, Active [id number] 200 actuat albuterol 0.09 mg/actuat metered dose inhaler (20 sources) beta2-Adrenerg ic Agonist Start: 10-10-2022 take 1 puff(s) by inhalation every four hours Albuterol Sulfate Active 1 PUFF INHALATION Q4H October 10, 2022 12:00am Start: 07-21-2021 albuterol (PRO VENTIL HFA;VENTOLIN HFA) 90 mcg/actuation inhaler End: 09-14-2023 take 2.5 mL by mouth every twenty-four hours as needed ALBUTEROL SULFATE ORAL Take 2.5 mL by mouth once daily as needed. 0 09/14/2023 Discontinued (Therapy completed) Albuterol Sulfat e (2.5 MG/3ML) 0.083% Inhalation [...] wheezing Active ALPRAZolam 1 mg oral tablet (16 sources) Benzodiazepine Start: 09-03-2023 take 1 tablet by mouth twice daily as needed ALPRAZolam 1 MG TAKE 1 TABLET BY MOUTH TWICE A DAY NEEDED for 30 Aug, Active Start: 06-04-2023 take 1 tablet by da twice daily as needed for anxiety ALPRAZolam [...] 0 07/09/2023 Active take 1 tablet by mouth once ailyn y aspirin 81 mg EC tablet Take 1 tablet (81 mg) by mouth once daily. 0 Active atorvastatin 80 mg oral tablet (12 sources) HMG-CoA Reductase Inhibitor Start: 2023 take 1 tablet by mouth once daily at bedtime atorvastatin (Lipitor) 80 mg tablet Indications: Atherosclerotic heart disease of [place] coronary artery without angina pectoris TAKE 1 TABLET BY MOUTH EVERYDAY AT BEDTIME 90 tablet 3 08/23/2023 Active Start: 10-21-2022 take 1 tablet by [...] mg total) before bedtime. 0 07/22/2021 Active clopidogrel 75 mg oral tablet (1 source) P2Y12 Platelet Inhibitor Start: 09-14-2023 End: 09-13-2024 take 1 tablet by mouth once daily clopidogrel (Plavix) 75 mg tablet Indications: Atherosclerosis of [place] coronary artery of [place] heart without angina pectoris Take 1 tablet (75 mg) by mouth once daily. 90 tablet 3 09/14/2023 09/13/2024 Active Fluticasone Propion-Salmeterol (17 sources) Corticosteroid, beta2-Adrenergic Agonist Start: 10-13-2022 Fluticasone Propion-Salmeterol (Advair Diskus) 250-50 mcg/dose blister with device Active 1 INH INHALATION Twice daily 60 October 13, 2022 12:00am Start: 10-02-2021 Advair HFA 115 -21 MCG/ACT Inhalation Aerosol Quantity: 12 Refills: 0 Ordered: 16-Nov-2021 DO Start : 02-Oct-2021 Active End: 09-14-2023 take 2 puff(s) by mouth twice daily fluticasone propion-salmeteroL (Advair HFA) 115-21 mcg/actuation inhaler Inhale 2 puffs 2 times a day. Rinse mouth with water after use to reduce aftertaste and incidence of candidiasis. Do not swallow. 0 09/14/2023 Discontinued (Therapy completed) take 1 puff(s) by in halation twice [...] times daily Active Nitro Sublingual 0.4 0.4mg (20 sources) Nitro Sublingual 0.4 0.4mg 1 Sublingual Every 5min x3 Active nitroglycerin 0.4 mg sublingual tablet (12 sources) Nitrate Vasodilator Start: 10-12-2022 Nitroglyce rin Active 0.4 MG SUBLINGUAL Q5M October 12, 2022 12:00am do not exceed 3 doses per episode ondansetron 4 mg disintegrating oral tablet (11 sources) Serotonin-3 Receptor Antagonist Start: 07-25-2021 ondansetron ODT (ZOFRAN-ODT) 4 mg disintegrating tablet Start: 07-24-2021 ondansetron (Z OFRAN) 4 mg tablet Zofran Active predniSONE 20 mg oral tablet (10 sources) Start: 02-04-2023 take 2 tablets by mouth every twenty-four hours predniSONE 20 MG 2 tablets Orally Once a day for 5 days Jan, Active Start: 11-12-2022 take 2 tablets by mo [facility] every twenty-four hours predniSONE 20 MG [...] (twelve) hours. 0 06/27/2023 Active Start: 10-12-2022 End: 09-14-2023 take 1 tablet by mouth twice daily Ticagrelor (Brilinta) 90 mg Tablet Active 90 MG PO Twice daily 180 90 October 12, 2022 12:00am Brilinta 90mg Ta [...] Active 160 MG PO Daily at bedtime 30 October 13, 2022 12:00am Completed/Discontinued Medications Medication [...] Active metoprolol tartrate 25 mg oral tablet (4 sources) beta-Adrenergic Maryjane Start: 12-24-2022 take 1 [...] Chronic Aortic; peripheral; and visceral artery aneurysms (15 sources) Abdominal aortic aneurysm without rupture; Translations: [Abdominal aortic aneurysm, without rupture, unspecified] Onset: 03-05-2022 08-22-2023 Chronic Asthma (20 sources) Asthma without status asthmaticus; Translations: [Unspecified asthma, uncomplicated] Onset: 08-11-2022 08-11-2022 Chronic Cardiac dysrhythmias (6 sources) EKG: ventricular tachycardia; Translations: [Ventricular tachycardia seen on liaison officer] 10-11-2022 Chronic Chronic obstructive pulmonary disease and bronchiectasis (20 sources) Acute exacerbation of chronic obstructive airways disease; Translations: [Chronic obstructive pulmonary disease with (acute) exacerbation] Onset: 07-29-2015 Chronic Chronic obstructive pulmonary disease and bronchiectasis (12 sources) Bronchitis; Translations: [Bronchitis, not specified as acute or chronic] Episodic Conduction disorders (16 sources) Complete atrioventricular block; Translations: [Atrioventricular block, complete] Onset: 10-10-2022 10-11-2022 Chronic Coronary atherosclerosis and other heart disease (20 sources) Coronary arteriosclerosis; Translations: [Atherosclerotic heart disease of k[place] coronary artery without angina pectoris] Onset: 10-28-2022 Chronic Disorders of lipid metabolism (12 sources) Mixed hyperlipidemia; Translations: [Mixed hyperlipidemia] Onset: 08-06-2023 09-14-2023 Chronic Essential hypertension (20 sources) Hypertensive disorder; Translations: [Essential (primary) hypertension] Onset: 03-05-2022 10-10-2022 Chronic Genitourinary symptoms and ill-defined conditions (4 sources) Dysuria; Translations: [Dysuria] Episodic Hypertension with complications and secondary hypertension (1 source) Hypertensive urgency; Translations: [HYPERTENSIVE URGENCY] Onset: 10-13-2022 Chronic Immunizations and screening for infectious disease (20 sources) Vaccination given; Translations: [Encounter for immunization] Episodic Joint disorders and dislocations; trauma-related (20 sources) Derangement of medial meniscus of left knee; Translations: [Other meniscus derangements, unspecified medial meniscus, left knee] Onset: 05-02-2018 03-05-2022 Chronic Osteoarthritis (20 sources) Osteoarthritis of right knee joint; Translations: [Unilateral primary osteoarthritis, right knee] Onset: 03-16-2019 Chronic Other aftercare (1 source) Other intermediate (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; Translations: [OTH VISUAL TRAINING AIDE CURRENT DRUG THERAPY] Onset: 10-13-2022 Episodic Other circulatory disease (2 sources) Elevated blood-pressure reading without diagnosis of hypertension; Translations: [Elevated blood-pressure reading, without diagnosis of hypertension] Episodic Other connective tissue disease (20 sources) Muscle pain; Translations: [Myalgia, unspecified site] Episodic Other connective tissue disease (20 sources) Spasm; Translations: [Other muscle spasm] Onset: 03-05-2022 03-05-2022 Episodic Other connective tissue disease (3 sources) [...] 08-01-2015 03-05-2022 Episodic Other lower respiratory disease (1 source) [...] Onset: 05-02-2018 Episodic Other non-traumatic joint disorders (20 sources) Joint pain; Translations: [Pain in unspecified joint] Onset: 03-05-2022 03-05-2022 Episodic Other non-traumatic joint disorders (1 source) Hip pain; Translations: [Hip joint pain] Episodic Other nutritional; endocrine; and metabolic disorders (19 sources) Obesity; Translations: [Obesity, unspecified] Chronic Other nutritional; endocrine; and metabolic disorders (4 sources) Obese class I; Translations: [Body mass index (BMI) 32.0-32.9, adult] Chronic Other nutritional; endocrine; and metabolic disorders (8 sources) Body mass index 30+ - obesity; Translations: [Obesity, unspecified] Onset: 03-05-2022 08-22-2023 Chronic Other nutritional; endocrine; and metabolic disorders (3 sources) Obesity, unspecified; Translations: [Obesity, unspecified] Onset: 03-05-2022 Chronic Other screening for suspected conditions (not [...] Onset: 10-10-2022 10-13-2022 Chronic Residual codes; unclassified (20 sources) Sleep disorder; Translations: [Other sleep disorders] Chronic Residual codes; unclassified (20 sources) Obstructive sleep apnea syndrome; Translations: [Obstructive [...] Onset: 07-29-2015 10-10-2022 Episodic Residual codes; unclassified (19 sources) Tobacco dependence syndrome; Translations: [Tobacco use] Episodic Septicemia (except in labor) (20 sources) Sepsis; Translations: [Sepsis, unspecified organism] Onset: 03-05-2022 03-05-2022 Episodic Spondylosis; intervertebral disc disorders; other back problems (20 sources) Neck pain; Translations: [Cervicalgia] Onset: 03-05-2022 03-05-2022 Episodic Substance-related disorders (20 sources) 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; Translations: [Nicotine dependence, cigarettes, with unspecified nicotine-induced disorders] Onset: 07-29-2015 Chronic Comment on above: 5-6 cig daily; 8 cigs daily; Unclassified (20 sources) Abdominal aortic aneurysm, without rupture, unspecified; [...] Classification Problem Date Documented Da te Episodic/Chronic Cardiac dysrhythmias (5 sources) Sinus tachycardia; Translations: [Other specified cardiac dysrhythmias] Onset: 08-06-2023 Resolved: 09-14-2023 09-14-2023 Episodic E Codes: Adverse effects of medical drugs [...] of hypertension] Onset: 03-05-2022 03-05-2022 Episodic Other gastrointestinal disorders (1 source) Diarrhea, unspecified; Translations: [DIARRHEA UNSPECIFIED] Onset: 07-16-2022 Episodic Other lower respiratory disease (12 sources) [...] Test Name Value Interpretation Reference Range Facility CT CTA ABD AND PELVISon 09-23 CT CTA ABD AND PELVIS CT CTA ABD AND PEL VIS Abdominal aortic aneurysm routine follow-up. Comparison August 26, 2022 Procedure: Multidetector CT Angiogram performed with IV contrast through the abdomen and pelvis including 3 -D Maximum intensity projection reconstructions constructed under concurrent physician supervision on a independent workstation . 3 D images obtained to improve visualization of vascular detail. Automated exposure control was utilized Findings: The lack of oral contrast limits evaluation of abdominal parenchymal organs, adenopathy, and bowel. 3D reformatted images confirm the source data findings. Right lower lobe consolidation partially improved but there is some bronchiectasis at the right lower lobe medially and I cannot exclude endobronchial process. I recommend a CT of the chest fully delineate the extent of this process. Abdominal parenchymal organs show no acute findings Bladder grossly unremarkable No abdominal or pelvic masses or adenopathy within limitations of arterial phase technique Origins of celiac trunk SMA and renal arteries are patent with some scattered calcifications. There are 2 right renal arteries and 2 left renal arteries. Tortuous infrarenal abdominal aortic aneurysm stable at 51 mm and containing a large amount of mural thrombus. No dissection. Left common iliac artery aneurysm 23.7 mm and right common iliac artery aneurysm 19.6 mm Bilateral fusiform dilatation of the common femoral arteries measuring 20 mm on the right and 18 mm on the left without convincing change IMPRESSION: Right lower lobe consolidation partially improved but there is some bronchiectasis at the right lower lobe medially and I cannot exclude endobronchial process. I recommend a CT of the chest fully delineate the extent of this process. Infrarenal abdominal aortic aneurysm similar to the prior study measuring 51 mm with aneurysmal dilatation of bilateral common iliac arteries and bilateral common femoral arteries. All CT scans at this facility use dose modulation, iterative reconstruction, and/or weight based dosing when appropriate to reduce radiation dose to as low as reasonably achievable. Finalized by Ryan Marie MD on 10/04/2023 3:36 PM Normal [facility] Office Visit (Cardiology)on 12-24-2022 Follow-up visit Diagnoses/Problems Assessed Coronary artery disease involving klamath coronary artery of [place] heart without angina pectoris (414.01) (I25.10) Preoperative [...] we can help. You may also call [phone] for free resources and assistance.; Status:Complete - [...] December. 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 Normal [employer] Tobacco Screening.on 023 Fall risk assessment c) Not medically indicated -[facility] [facility] [address] DO Work Phone: Tobacco use status CPHS a) Yes [facility] DO Work Phone: Tobacco Screening. Yes [facility] [facility] 250 DO Work Phone: CT chest w conon 11-03-2022 CT chest w [facility] [place] [address] [place] [address] CT Scan Report Signed Patient: Hector Gaspar SR MR#: [id number] : 1960 Acct:[id number] Age/Sex: 62 / M ADM Date: 11/03/22 Loc: CT Room: Type: [facility] Attending Dr: Adi Campos MD Copies to: [...] Layton Jr., D.OEhsan11/03/2022 2:03 PM Dictation Location: [facility]--15 Transcribed By: [facility] 11/03/22 1403 Dictated By: Parrish Layton Jr, DO 11/03/22 1358 Signed By: 11/03/22 1403 [facility] Cardiovasc Arrhythmia Result son 11-02-2022 Cardiovasc Arrhythmia Results Reason For Visit Reason for Visit: Holter Monitor: HECTOR is here for the application of a 48 hour Holter monitor. Ordering Physician: JANINE CUNHA Diagnosis: CAD SINUS PAUSE [facility] equipment agreement signed. HECTOR understands monitor is to be returned on: 11-03-22 Monitor number [id number] applied. Holter monitor returned and downloaded. Procedure [...] symptomatic Diagnosis/Problems Assessed Coronary artery disease involving k[place] coronary artery of [place] heart without angina pectoris (414.01) (I25.10) Sinus pause (426.6) (I45.5) Future Appointments Date/TimeProviderSpecialt ySite 01/19/2023 02:30 Alok Kirkland, [id number] [facility] [address] 250 DO Signatures Electronically signed by : Mallory Fan MA; Nov 02 2022 2:10PM EST (Author) Electronically signed by : Mohsen Fernandez MD; Nov 08 2022 5:34PM EST (Author) Normal [employer] Basic Metabolic Panelon 04-0 Anion gap [Moles/Vol] 11.6 mmol/L Normal 6.0-15.0 [facility] Comment on above: Order Comment: PT NO T FASTING Performed By: #### C MP, MG, HS TROP, A1C WTH eA, LIPID, CBC #### [facility] [address] [place] [address] [place] Calcium [Mass/Vol] 9.5 mg/dL Normal 8.6-10.3 [facility] Comment on above: Order Comment: PT NO T FASTING Result Comment: PERF ORMED BY: [place] [address] PATHOLOGIST DIGITAL CONTENT COORDINATOR JANETTE DE LA FUENTE M.D. Performed By: #### C MP, MG, HS TROP, A1C WTH eA, LIPID, CBC #### [facility] [address] [place] [address] [place] Chloride [Moles/Vol] 107 mmol/L Normal 98-[address] [facility] Comment on above: Order Comment: PT NO T FASTING Performed By: #### C MP, MG, HS TROP, A1C WTH eA, LIPID, CBC #### [facility] [address] [place] [address] [place] CO2 [Moles/Vol] 25.8 mmol/L Normal 21.0-31.0 [facility] Comment on above: Order Comment: PT NO T FASTING Performed By: #### C MP, MG, HS TROP, A1C WTH eA, LIPID, CBC #### [facility] [address] [place] [address] [place] Creatinine [Mass/Vol] 1.16 mg/dL Normal 0.70-1.30 [facility] Comment on above: Order Comment: PT NO T FASTING Performed By: #### C MP, MG, HS TROP, A1C WTH eA, LIPID, CBC #### [facility] [address] [place] [address] [place] GFR/1.73 sq M.predicted MDRD (S/P/Bld) [Vol rate/Area] mL/min/{1.73_m2} Normal [facility] Comment on above: Order Comment: PT NO T FASTING Performed By: #### C MP, MG, HS TROP, A1C WTH eA, LIPID, CBC #### [facility] [address] [place] [address] [place] Glucose [Mass/Vol] 100 mg/dL Normal 70-100 [facility] Comment on above: Order Comment: PT NO T FASTING Result Comment: [facility] Glucose Reference Range is dependent on time and content of last meal. Glucose of more than 200 mg/dL in a nonstressed, ambulatory subject supports the diagnosis of Diabetes Mellitus. ADA recommended reference range Performed By: #### C MP, MG, HS TROP, A1C WTH eA, LIPID, CBC #### [facility] [address] [place] [address] [place] Potassium [Moles/Vol] 4.4 mmol/L Normal 3.5-5.1 [facility] Comment on above: Order Comment: PT NO T FASTING Performed By: #### C MP, MG, HS TROP, A1C WTH eA, LIPID, CBC #### [facility] [address] [place] [address] [place] Sodium [Moles/Vol] 140 mmol/L Normal 136-145 [facility] Comment on above: Order Comment: PT NO T FASTING Performed By: #### C MP, MG, HS TROP, A1C WTH eA, LIPID, CBC #### [facility] [address] [place] [address] [place] Urea nitrogen [Mass/Vol] 27 mg/dL High 7-25 [facility] Comment on above: Order Comment: PT NO T FASTING Performed By: #### C MP, MG, HS TROP, A1C WTH eA, LIPID, CBC #### [facility] [address] [place] [id number] [facility] Calcium [Mass/volume] in Ser um or PlasmaOrdered By: Janine Cunha on 10-28-2022 Calcium [Mass/Vol] 9.5 mg/dL 8.6-10.3 [facility] Carbon dioxide, total [Moles /volume] in Serum or PlasmaOrdered By: Janine Cunha on 10-28-2022 CO2 [Moles/Vol] 25.8 mmol/L 21.0-31.0 [facility] Chloride [Moles/volume] in S lisa or PlasmaOrdered By: Janine Cunha on 10-28-2022 Chloride [Moles/Vol] 107 mmol/L 98-[address] [facility] Creatinine [Mass/volume] in Serum or PlasmaOrdered By: Janine Cunha on 10-28-2022 Creatinine [Mass/Vol] 1.16 mg/dL 0.70-1.30 [facility] Glucose [Mass/volume] in Ser um or PlasmaOrdered By: Janine Cunha on 10-28-2022 Glucose [Mass/Vol] 100 mg/dL 70-100 [facility] Comment on above: ADA recommended refe rence rangeRandom Glucose Reference Range is dependent on time and content of last meal. Glucose of more than 200 mg/dL in a nonstressed, ambulatory subject supports the diagnosis of Diabetes Mellitus. No Panel InformationOrdered By: Janine Cunha on 10-28-2022 Estimated GFR (CKD-EPI) > 60.0 mL/Min [facility] Creatinine Clearance (Chem N/A [facility] No Panel Informationon 10-28 > 60.0 Normal -[facility] 600 DO Work Phone: 11.6\S\11.6 Normal 6.0-15.0 [facility] 600 DO Work Phone: 9.5\S\9.5 Normal 8.6-10.3 [facility] Work Phone: [phone] Comment on above: PERFORMED BY:[facility] [place] [id number] MEDICAL DIRECTORJANETTE DE LA FUENTE M.D. 25.8\S\25.8 Normal 21.0-31.0 [facility] [address] DO Work Phone: [phone] 107\S\107 Normal 98-107 [facility] [address] DO Work Phone: [phone] 4.4\S\4.4 Normal 3.5-5.1 [facility] [address] DO Work Phone: [phone] 140\S\140 Normal 136-145 [facility] DO Work Phone: [phone] 1.16\S\1.16 Normal 0.70-1.30 [facility] DO Work Phone: [phone] 27\S\27 above high threshold 7-25 [facility] [address] DO Work Phone: [phone] 100\S\100 Normal 70-100 [facility] [address] DO Work Phone: [phone] Comment on above: Random Glucose Refer ence Range is dependent on time and content of last meal. Glucose of more than 200 mg/dL in a nonstressed, ambulatory subject supports the diagnosis of Diabetes Mellitus. ADA recommended reference range Potassium [Moles/volume] in Serum or PlasmaOrdered By: Janine Cunah on 10-28-2022 Potassium [Moles/Vol] 4.4 mmol/L 3.5-5.1 [facility] Serum or plasma anion gap de terminationOrdered By: Janine Cunha on 10-28-2022 Anion gap [Moles/Vol] 11.6 mmol/L 6.0-15.0 [facility] Sodium [Moles/volume] in Ser um or PlasmaOrdered By: Janine Cunha on 10-28-2022 Sodium [Moles/Vol] 140 mmol/L 136-145 [facility] Urea nitrogen [Mass/volume] in Serum or PlasmaOrdered By: Janine Cunha on 10-28-2022 Urea nitrogen [Mass/Vol] 27 mg/dL 7-25 [facility] Tobacco Screening.on 023 Adult depression screening assessment No [facility] [facility] [address] DO Work Phone: Fall risk assessment a) No falls within the last year [facility] [facility] [address] DO Work Phone: Tobacco use status CPHS a) Yes [facility] [facility] [address] DO Work Phone: Tobacco Screening. Yes [facility] [facility] 250 DO Work Phone: B-Type Natriuretic Peptideon 10-12-2022 Natriuretic peptide B (Bld) [Mass/Vol] 91.0 pg/mL Normal 5-100 [facility] [facility] Comment on above: Result Comment: PERF ORMED BY: [place] [address] PATHOLOGIST DIGITAL CONTENT COORDINATOR JANETTE DE LA FUENTE M.D. Performed By: #### C MP, MG, HS TROP, A1C WTH eA, LIPID, CBC #### [facility] [address] [place] [address] Basic Metabolic Panelon 09-24 Anion gap [Moles/Vol] 12.0 mmol/L Normal 6.0-15.0 [facility] Comment on above: Performed By: #### B MP, MG, BNP #### [facility] [address] Calcium [Mass/Vol] 9.0 mg/dL Normal 8.6-10.3 [facility] Comment on above: Performed By: #### B MP, MG, BNP #### [address] Chloride [Moles/Vol] 107 mmol/L Normal 98-[address] [facility] Comment on above: Performed By: #### B MP, MG, BNP #### [facility] [address] [place] [address] [place] CO2 [Moles/Vol] 25.2 mmol/L Normal 21.0-31.0 [facility] Comment on above: Performed By: #### B MP, MG, BNP #### [facility] [address] [place] [address] [place] Creatinine [Mass/Vol] 1.09 mg/dL Normal 0.70-1.30 [facility] Comment on above: Performed By: #### B MP, MG, BNP #### [facility] [address] [place] [address] [place] Creatinine Clr Calc Pharmacy 79.69 [facility] Comment on above: Performed By: #### B MP, MG, BNP #### [facility] [address] [place] [address] [place] GFR/1.73 sq M.predicted MDRD (S/P/Bld) [Vol rate/Area] mL/min/{1.73_m2} [facility] Comment on above: Performed By: #### B MP, MG, BNP #### [facility] [address] Glucose [Mass/Vol] 100 mg/dL Normal 74-109 [facility] Comment on above: Result Comment: [place] Glucose Reference Range is dependent on time and content of last meal. Glucose of more than 200 mg/dL in a nonstressed, ambulatory subject supports the diagnosis of Diabetes Mellitus. ADA recommended reference range Performed By: #### B MP, MG, BNP #### [facility] [address] [place] [address] [place] Potassium [Moles/Vol] 4.2 mmol/L Normal 3.5-5.1 [facility] Comment on above: Performed By: #### B MP, MG, BNP #### [facility] [address] [place] [address] [place] Sodium [Moles/Vol] 140 mmol/L Normal 136-145 [facility] Comment on above: Performed By: #### B MP, MG, BNP #### [facility] [address] [place] [id number] [facility] Urea nitrogen [Mass/Vol] 23 mg/dL Normal 7-25 [facility] Comment on above: Performed By: #### B MP, MG, BNP #### [facility] [address] [place] [id number] [facility] Calcium [Mass/volume] in Ser um or PlasmaOrdered By: Rubén Tatum on 10-12-2022 Calcium [Mass/Vol] 9.0 mg/dL 8.6-10.3 [facility] Carbon dioxide, total [Moles /volume] in Serum or PlasmaOrdered By: Rubén Tatum on 10-12-2022 CO2 [Moles/Vol] 25.2 mmol/L 21.0-31.0 [facility] Chloride [Moles/volume] in S lisa or PlasmaOrdered By: Rubén Tatum on 10-12-2022 Chloride [Moles/Vol] 107 mmol/L 98-[address] [facility] Creatinine [Mass/volume] in Serum or PlasmaOrdered By: Rubén Tatum on 10-12-2022 Creatinine [Mass/Vol] 1.09 mg/dL 0.70-1.30 [facility] Glucose [Mass/volume] in Ser um or PlasmaOrdered By: Rubén Tatum on 10-12-2022 Glucose [Mass/Vol] 100 mg/dL 74-109 [facility] Comment on above: ADA recommended refe rence rangeRandom Glucose Reference Range is dependent on time and content of last meal. Glucose of more than 200 mg/dL in a nonstressed, ambulatory subject supports the diagnosis of Diabetes Mellitus. Laboratory - Chemistry and C hemistry - challengeOrdered By: Rubén Tatum on 10-12-2022 GFR/1.73 sq M.predicted MDRD (S/P/Bld) [Vol rate/Area] mL/min/{1.73_m2} [facility] Magnesiumon 10-12-2022 Magnesium [Mass/Vol] 2.2 mg/dL Normal 1.9-2.[address] [facility] Comment on above: Result Comment: PERF ORMED BY: [facility] [address] [facility] [place] [address] PATHOLOGIST DIGITAL CONTENT COORDINATOR JANETTE DE LA FUENTE M.D. Performed By: #### B MP, MG, BNP #### [facility] [address] [place] [id number] [place] Magnesium [Mass/volume] in S lisa or PlasmaOrdered By: Rubén Tatum on 10-12-2022 Magnesium [Mass/Vol] 2.2 mg/dL 1.9-2.[address] [facility] Natriuretic peptide B [Mass/ Vol]Ordered By: Rubén Tatum on 10-12-2022 Natriuretic peptide B (Bld) [Mass/Vol] 91.0 pg/mL 5-100 [facility] No Panel InformationOrdered By: Rubén Tatum on 10-12-2022 Pharmacy Creatinine Clearance (Chem 79.69 [facility] Potassium [Moles/volume] in Serum or PlasmaOrdered By: Rubén Tatum on 10-12-2022 Potassium [Moles/Vol] 4.2 mmol/L 3.5-5.1 [facility] Serum or plasma anion gap de terminationOrdered By: Rubén Tatum on 10-12-2022 Anion gap [Moles/Vol] 12.0 mmol/L 6.0-15.0 [facility] Sodium [Moles/volume] in Ser um or PlasmaOrdered By: Rubén Tatum on 10-12-2022 Sodium [Moles/Vol] 140 mmol/L 136-145 [facility] Urea nitrogen [Mass/volume] in Serum or PlasmaOrdered By: Rubén Tatum on 10-12-2022 Urea nitrogen [Mass/Vol] 23 mg/dL 7-25 [facility] A1C with Estimated Average G luon 10-11-2022 Glucose [Mass/Vol] 120 mg/dL Normal [facility] Comment on above: Result Comment: PERF ORMED BY: [facility] [address] [place] [address] PATHOLOGIST DIGITAL CONTENT COORDINATOR JANETTE DE LA FUENTE M.D. Performed By: #### C MP, MG, HS TROP, A1C WTH eA, LIPID, CBC #### [facility] [address] [place] [id number] [facility] HbA1c (Bld) [Mass fraction] 5.8 % High 4.3-5.6 [facility] Comment on above: Result Comment: Incr eased risk for diabetes: 5.7 - 6.4 diabetes: >6.4 glycemic control for adults with diabetes: <7.0 Performed By: #### C MP, MG, HS TROP, A1C WTH eA, LIPID, CBC #### [facility] [address] Alanine aminotransferase [En zymatic activity/volume] in Serum or PlasmaOrdered By: Rubén Tatum on 10-11-2022 ALT [Catalytic activity/Vol] 18 U/L 7-52 [facility] Albumin [Mass/volume] in Ser um or Plasma by Bromocresol green (BCG) dye binding methoOrdered By: Rubén Tatum on 10-11-2022 Albumin BCG dye [Mass/Vol] 3.9 g/dL 3.5-5.7 [facility] Alkaline phosphatase [Enzyma tic activity/volume] in Serum or PlasmaOrdered By: Rubén Tatum on 10-11-2022 ALP [Catalytic activity/Vol] 46 U/L 34-104 [facility] Aspartate aminotransferase [ Enzymatic activity/volume] in Serum or PlasmaOrdered By: Rubén Tatum on 10-11-2022 AST [Catalytic activity/Vol] 30 U/L 13-39 [facility] B-Type Natriuretic Peptideon 10-11-2022 Natriuretic peptide B (Bld) [Mass/Vol] 157.0 pg/mL High 5-100 [facility] Comment on above: Result Comment: PERF ORMED BY: [facility] [address] [place] [address] PATHOLOGIST DIGITAL CONTENT COORDINATOR JANETTE DE LA FUENTE M.D. Performed By: #### C MP, MG, HS TROP, A1C WTH eA, LIPID, CBC #### [facility] [address] [place] [address] [place] Basophils Auto (Bld) [#/Vol] Ordered By: Galo Dent on 10-11-2022 Basophils (Bld) [#/Vol] 0.0 10*3/uL 0.0-0.2 [facility] Basophils/100 WBC Auto (Bld) Ordered By: Galo Dent on 10-11-2022 Basophils/100 WBC (Bld) 0.5 % . [facility] Bilirubin.total [Mass/volume ] in Serum or PlasmaOrdered By: Rubén Tatum on 10-11-2022 Bilirubin [Mass/Vol] 0.4 mg/dL 0.3-1.[address] [facility] Cholesterol [Mass/volume] in Serum or PlasmaOrdered By: Rubén Tatum on 10-11-2022 Cholesterol [Mass/Vol] 221 mg/dL 140-200 [facility] Comment on above: Chol less than 200 m g/dl low riskChol 201-239 mg/dl borderline riskChol 240 mg/dl and greater high risk Cholesterol in LDL Calc [Mas s/Vol]Ordered By: Rubén Tatum on 10-11-2022 Cholesterol in LDL [Mass/Vol] 149 mg/dL 0-100 [facility] Comment on above: LDL ATP III CLASSIFI CATIONLDL less than 100 mg/dL OptimalLDL 100-129 mg/dL Near or above optimalLDL 130-159 mg/dL Borderline highLDL 160-189 mg/dL HighLDL greater than 189 mg/dL Very high Cholesterol in VLDL Calc [Ma ss/Vol]Ordered By: Rubén Tatum on 10-11-2022 Cholesterol in VLDL [Mass/Vol] 30 mg/dL [facility] Complete Blood Count Auto Di ffon 10-11-2022 Basophils (Bld) [#/Vol] 0.0 10*3/uL Normal 0.0-0.2 [facility] Comment on above: Result Comment: PERF ORMED BY: [place] [address] PATHOLOGIST DIGITAL CONTENT COORDINATOR JANETTE DE LA FUENTE M.D. Performed By: #### C MP, MG, HS TROP, A1C WTH eA, LIPID, CBC #### [facility] [address] [place] [address] [place] Basophils/100 WBC (Bld) 0.5 % Normal . [facility] Comment on above: Performed By: #### C MP, MG, HS TROP, A1C WTH eA, LIPID, CBC #### [facility] [address] [place] [id number] [place] Eosinophils (Bld) [#/Vol] 0.2 10*3/uL Normal 0.0-0.45 [facility] Comment on above: Performed By: #### C MP, MG, HS TROP, A1C WTH eA, LIPID, CBC #### [address] Eosinophils/100 WBC (Bld) 3.7 % Normal . [facility] Comment on above: Performed By: #### C MP, MG, HS TROP, A1C WTH eA, LIPID, CBC #### [address] Erythrocyte distribution width (RBC) [Ratio] 14.9 % High 12.0-14.8 [facility] Comment on above: Performed By: #### C MP, MG, HS TROP, A1C WTH eA, LIPID, CBC #### [address] Hematocrit (Bld) [Volume fraction] 37.7 % Low 38.8-50.0 [facility] Comment on above: Performed By: #### C MP, MG, HS TROP, A1C WTH eA, LIPID, CBC #### [address] Hemoglobin (Bld) [Mass/Vol] 12.7 g/dL Low 13.0-17.0 [facility] Comment on above: Performed By: #### C MP, MG, HS TROP, A1C WTH eA, LIPID, CBC #### [address] Lymphocytes (Bld) [#/Vol] 1.4 10*3/uL Normal 1.00-4.8 [facility] Comment on above: Performed By: #### C MP, MG, HS TROP, A1C WTH eA, LIPID, CBC #### [address] Lymphocytes/100 WBC (Bld) 21.8 % Normal . [facility] Comment on above: Performed By: #### C MP, MG, HS TROP, A1C WTH eA, LIPID, CBC #### [address] MCH (RBC) [Entitic mass] 30.1 pg Normal 27.5-35.2 [facility] Comment on above: Performed By: #### C MP, MG, HS TROP, A1C WTH eA, LIPID, CBC #### [address] MCV (RBC) [Entitic vol] 89.4 fL Normal 83.5-101 [facility] Comment on above: Performed By: #### C MP, MG, HS TROP, A1C WTH eA, LIPID, CBC #### [address] Mean Corpuscular HGB Conc 33.7 g/dL Normal 32.5-35.6 [facility] Comment on above: Performed By: #### C MP, MG, HS TROP, A1C WTH eA, LIPID, CBC #### [address] Monocytes (Bld) [#/Vol] 0.7 10*3/uL Normal 0.0-0.8 [facility] Comment on above: Performed By: #### C MP, MG, HS TROP, A1C WTH eA, LIPID, CBC #### [address] Monocytes/100 WBC (Bld) 10.2 % Normal . [facility] Comment on above: Performed By: #### C MP, MG, HS TROP, A1C WTH eA, LIPID, CBC #### [address] Neutrophils (Bld) [#/Vol] 4.2 10*3/uL Normal 1.8-7.7 [facility] Comment on above: Performed By: #### C MP, MG, HS TROP, A1C WTH eA, LIPID, CBC #### [address] Neutrophils/100 WBC (Bld) 63.8 % Normal . [facility] Comment on above: Performed By: #### C MP, MG, HS TROP, A1C WTH eA, LIPID, CBC #### [facility] [address] NRBC% 0.1 /100{WBC} Normal 0-0.5 [facility] Comment on above: Performed By: #### C MP, MG, HS TROP, A1C WTH eA, LIPID, CBC #### [facility] [address] Platelet mean volume (Bld) [Entitic vol] 7.3 fL Normal 6.6-10.1 [facility] Comment on above: Performed By: #### C MP, MG, HS TROP, A1C WTH eA, LIPID, CBC #### [facility] [address] Platelets (Bld) [#/Vol] 203 10*3/uL Normal 150-450 [facility] Comment on above: Performed By: #### C MP, MG, HS TROP, A1C WTH eA, LIPID, CBC #### [address] RBC (Bld) [#/Vol] 4.21 10*6/uL Normal 3.90-5.60 [facility] Comment on above: Performed By: #### C MP, MG, HS TROP, A1C WTH eA, LIPID, CBC #### [address] WBC (Bld) [#/Vol] 6.6 10*3/uL Normal 4.1-10.5 [facility] Comment on above: Performed By: #### C MP, MG, HS TROP, A1C WTH eA, LIPID, CBC #### [address] Comprehensive Metabolic Pane weston 10-11-2022 Albumin [Mass/Vol] 3.9 g/dL Normal 3.5-5.7 [facility] Comment on above: Order Comment: FASTI NG Y Performed By: #### C MP, MG, HS TROP, A1C WTH eA, LIPID, CBC #### [address] Albumin/Globulin [Mass ratio] 1.6 {ratio} Normal [facility] Comment on above: Order Comment: FASTI NG Y Performed By: #### C MP, MG, HS TROP, A1C WTH eA, LIPID, CBC #### [facility] [address] ALP [Catalytic activity/Vol] 46 U/L Normal 34-104 [facility] Comment on above: Order Comment: FASTI NG Y Performed By: #### C MP, MG, HS TROP, A1C WTH eA, LIPID, CBC #### [facility] [address] ALT [Catalytic activity/Vol] 18 U/L Normal 7-52 [facility] Comment on above: Order Comment: FASTI NG Y Performed By: #### C MP, MG, HS TROP, A1C WTH eA, LIPID, CBC #### [facility] [address] Anion gap [Moles/Vol] 10.3 mmol/L Normal 6.0-15.0 [facility] Comment on above: Order Comment: FASTI NG Y Performed By: #### C MP, MG, HS TROP, A1C WTH eA, LIPID, CBC #### [facility] [address] AST [Catalytic activity/Vol] 30 U/L Normal 13-39 [facility] Comment on above: Order Comment: FASTI NG Y Performed By: #### C MP, MG, HS TROP, A1C WTH eA, LIPID, CBC #### [facility] [address] Bilirubin [Mass/Vol] 0.4 mg/dL Normal 0.3-1.[address] [facility] Comment on above: Order Comment: FASTI NG Y Performed By: #### C MP, MG, HS TROP, A1C WTH eA, LIPID, CBC #### [facility] [address] Calcium [Mass/Vol] 8.9 mg/dL Normal 8.6-10.3 [facility] Comment on above: Order Comment: FASTI NG Y Performed By: #### C MP, MG, HS TROP, A1C WTH eA, LIPID, CBC #### [facility] [address] Chloride [Moles/Vol] 109 mmol/L High 98-[address] [facility] Comment on above: Order Comment: FASTI NG Y Performed By: #### C MP, MG, HS TROP, A1C WTH eA, LIPID, CBC #### [facility] [address] CO2 [Moles/Vol] 23.7 mmol/L Normal 21.0-31.0 [facility] Comment on above: Order Comment: FASTI NG Y Performed By: #### C MP, MG, HS TROP, A1C WTH eA, LIPID, CBC #### [facility] [address] Creatinine [Mass/Vol] 1.00 mg/dL Normal 0.70-1.30 [facility] Comment on above: Order Comment: FASTI NG Y Performed By: #### C MP, MG, HS TROP, A1C WTH eA, LIPID, CBC #### [facility] [address] Creatinine Clr Calc Pharmacy 86.86 [facility] Comment on above: Order Comment: FASTI NG Y Performed By: #### C MP, MG, HS TROP, A1C WTH eA, LIPID, CBC #### [facility] [address] GFR/1.73 sq M.predicted MDRD (S/P/Bld) [Vol rate/Area] mL/min/{1.73_m2} [facility] Comment on above: Order Comment: FASTI NG Y Performed By: #### C MP, MG, HS TROP, A1C WTH eA, LIPID, CBC #### [facility] [address] Globulin (S) [Mass/Vol] 2.5 g/dL [facility] Comment on above: Order Comment: FASTI NG Y Performed By: #### C MP, MG, HS TROP, A1C WTH eA, LIPID, CBC #### [facility] [address] Glucose [Mass/Vol] 96 mg/dL Normal 74-109 [facility] Comment on above: Order Comment: FASTI NG Y Result Comment: [facility] Glucose Reference Range is dependent on time and content of last meal. Glucose of more than 200 mg/dL in a nonstressed, ambulatory subject supports the diagnosis of Diabetes Mellitus. ADA recommended reference range Performed By: #### C MP, MG, HS TROP, A1C WTH eA, LIPID, CBC #### [facility] [address] Potassium [Moles/Vol] 4.0 mmol/L Normal 3.5-5.1 [facility] Comment on above: Order Comment: FASTI NG Y Performed By: #### C MP, MG, HS TROP, A1C WTH eA, LIPID, CBC #### [facility] [address] Protein [Mass/Vol] 6.4 g/dL Normal 6.4-8.9 [facility] Comment on above: Order Comment: FASTI NG Y Performed By: #### C MP, MG, HS TROP, A1C WTH eA, LIPID, CBC #### [facility] [address] [place] [address] [place] Sodium [Moles/Vol] 139 mmol/L Normal 136-145 [facility] Comment on above: Order Comment: FASTI NG Y Performed By: #### C MP, MG, HS TROP, A1C WTH eA, LIPID, CBC #### [facility] [address] Urea nitrogen [Mass/Vol] 17 mg/dL Normal 7-25 [facility] Comment on above: Order Comment: FASTI NG Y Performed By: #### C MP, MG, HS TROP, A1C WTH eA, LIPID, CBC #### [facility] [address] ECG 12 lead ECGon 10-11-2022 ECG 12 lead ECG [facility] [place] [address] [place] [address] Electrocardiograph Report Signed Patient: Hector Gaspar SR MR#: [id number] : 1960 Acct:[id number] Age/Sex: 62 / M ADM Date: 10/10/22 Loc: Room: [address] [place] [address] Type: ADM IN Attending Dr: Barbara Rivero [...] Edilson Cruz DO 10/[address] [facility] Eosinophils Auto (Bld) [#/Vo l]Ordered By: Galo Dent on 10-11-2022 Eosinophils (Bld) [#/Vol] 0.2 10*3/uL 0.0-0.45 [facility] Eosinophils/100 WBC Auto (Bl d)Ordered By: Galo Dent on 10-11-2022 Eosinophils/100 WBC (Bld) 3.7 % . [facility] Erythrocyte distribution wid th Auto (RBC) [Ratio]Ordered By: Galo Dent on 10-11-2022 Erythrocyte distribution width (RBC) [Ratio] 14.9 % 12.0-14.8 [facility] Globulin Calc (S) [Mass/Vol] Ordered By: Rubén Tatum on 10-11-2022 Globulin (S) [Mass/Vol] 2.5 g/dL [facility] Glucose mean value [Mass/vol ume] in Blood Estimated from glycated hemoglobinOrdered By: Gaol Dent on 10-11-2022 Average glucose Estimated from glycated hemoglobin (Bld) [Mass/Vol] 120 mg/dL [facility] Hematocrit Auto (Bld) [Volum e fraction]Ordered By: Galo Dent on 10-11-2022 Hematocrit (Bld) [Volume fraction] 37.7 % 38.8-50.0 [facility] Hemoglobin A1c percentageOrd ered By: Galo Dent on 10-11-2022 HbA1c (Bld) [Mass fraction] 5.8 % 4.3-5.6 [facility] Comment on above: Increased risk for d iabetes: 5.7 - 6.4diabetes: >6.4glycemic control for adults with diabetes: <7.0 Hemoglobin [Mass/volume] in BloodOrdered By: Galo Dent on 10-11-2022 Hemoglobin (Bld) [Mass/Vol] 12.7 g/dL 13.0-17.0 [facility] Laboratory - CoagulationOrde red By: Galo Dent on 10-11-2022 PT Coag (PPP) [Time] 11.3 s 9.0-12.[address] [facility] Leukocytes [#/volume] correc kal for nucleated erythrocytes in Blood by Automated counOrdered By: Galo Dent on 10-11-2022 WBC corrected for nucl RBC Auto (Bld) [#/Vol] 6.6 10*3/uL 4.1-10.5 [facility] Lipid Panelon 10-11-2022 Cholesterol [Mass/Vol] 221 mg/dL High 140-200 [facility] Comment on above: Order Comment: TONIA FLOYD Y Result Comment: Chol less than 200 mg/dl low risk Chol 201-239 mg/dl borderline risk Chol 240 mg/dl and greater high risk Performed By: #### C MP, MG, HS TROP, A1C WTH eA, LIPID, CBC #### [facility] [address] Cholesterol in HDL [Mass/Vol] 42 mg/dL Normal 29-71 [facility] Comment on above: Order Comment: TONIA FLOYD Y Result Comment: HDL CHOL ATP-III CLASSIFICATION Cardiovascular Risk HDL > or equal to 60 mg/dL LOW HDL < 40 mg/dL HIGH Performed By: #### C MP, MG, HS TROP, A1C WTH eA, LIPID, CBC #### [facility] [address] Cholesterol.total/Chol esterol in HDL [Mass ratio] 5.3 {ratio} Normal <5.0 [facility] Comment on above: Order Comment: TONIA [place] Result Comment: PERF ORMED BY: [place] [address] PATHOLOGIST DIGITAL CONTENT COORDINATOR JANETTE DE LA FUENTE M.D. Performed By: #### C MP, MG, HS TROP, A1C WTH eA, LIPID, CBC #### [facility] [address] LDL Cholesterol,Calculated 149 mg/dL High 0-100 [facility] Comment on above: Order Comment: TONIA [place] Result Comment: LDL ATP III CLASSIFICATION LDL less than 100 mg/dL Optimal LDL 100-129 mg/dL Near or above optimal LDL 130-159 mg/dL Borderline high LDL 160-189 mg/dL High LDL greater than 189 mg/dL Very high Performed By: #### C MP, MG, HS TROP, A1C WTH eA, LIPID, CBC #### [facility] [address] Triglyceride w/Reflex 152 mg/dL High 0-149 [facility] Comment on above: [...] TROP, A1C WTH eA, LIPID, CBC #### [facility] [address] VLDL CHOLESTEROL 30 mg/dL Normal [facility] Comment on above: Order Comment: TONIA [place] Performed By: #### C MP, MG, HS TROP, A1C WTH eA, LIPID, CBC #### [facility] [address] [place] [address] [place] Lymphocytes Auto (Bld) [#/Vo l]Ordered By: Galo Dent on 10-11-2022 Lymphocytes (Bld) [#/Vol] 1.4 10*3/uL 1.00-4.8 [facility] Lymphocytes/100 WBC Auto (Bl d)Ordered By: Galo Wittmood on 10-11-2022 Lymphocytes/100 WBC (Bld) 21.8 % . [facility] MCH Auto (RBC) [Entitic mass ]Ordered By: Galo Dent on 10-11-2022 MCH (RBC) [Entitic mass] 30.1 pg 27.5-35.2 [facility] MCHC Auto (RBC) [Mass/Vol]Or dered By: Galo Wittmood on 10-11-2022 MCHC (RBC) [Mass/Vol] 33.7 g/dL 32.5-35.6 [facility] MCV Auto (RBC) [Entitic vol] Ordered By: Galo Dent on 10-11-2022 MCV (RBC) [Entitic vol] 89.4 fL 83.5-101 [facility] Magnesiumon 10-11-2022 Magnesium [Mass/Vol] 2.0 mg/dL Normal 1.9-2.[address] [facility] Comment on above: Order Comment: TONIA Clinton Performed By: #### C MP, MG, HS TROP, A1C WTH eA, LIPID, CBC #### [facility] [address] Monocytes Auto (Bld) [#/Vol] Ordered By: Galo Dent on 10-11-2022 Monocytes (Bld) [#/Vol] 0.7 10*3/uL 0.0-0.8 [facility] Monocytes/100 WBC Auto (Bld) Ordered By: Galo Dent on 10-11-2022 Monocytes/100 WBC (Bld) 10.2 % . [facility] Neutrophils Auto (Bld) [#/Vo l]Ordered By: Galo Wittmood on 10-11-2022 Neutrophils (Bld) [#/Vol] 4.2 10*3/uL 1.8-7.7 [facility] Neutrophils/100 WBC Auto (Bl d)Ordered By: Galo Dent on 10-11-2022 Neutrophils/100 WBC (Bld) 63.8 % . [facility] Nucleated erythrocytes [Pres ence] in Blood by Automated countOrdered By: Galo Dent on 10-11-2022 Nucleated RBC Auto Ql (Bld) 0.1 /100{WBC} 0-0.5 [facility] Platelet mean volume Auto (B ld) [Entitic vol]Ordered By: Galo Dent on 10-11-2022 Platelet mean volume (Bld) [Entitic vol] 7.3 fL 6.6-10.1 [facility] Platelet poor plasma interna tional normalized ratio (INR) by coagulation assay (relatOrdered By: Galo Dent on 10-11-2022 INR Coag (PPP) [Relative time] 1.0 {INR} [facility] Comment on above: INR Therapeutic Rang e [...] 4.5 Platelets Auto (Bld) [#/Vol] Ordered By: Gaol Dent on 10-11-2022 Platelets (Bld) [#/Vol] 203 10*3/uL 150-450 [facility] Protein [Mass/volume] in Ser um or PlasmaOrdered By: Rubén Tatum on 10-11-2022 Protein [Mass/Vol] 6.4 g/dL 6.4-8.9 [facility] Prothrombin Time INRon 10-11 INR Coag (PPP) [Relative time] 1.0 {INR} Normal [facility] Comment on above: Result Comment: INR Therapeutic [...] heart valves: 3 - 4.5 PERFORMED BY: [place] [address] PATHOLOGIST DIGITAL CONTENT COORDINATOR JANETTE DE LA FUENTE M.D. Performed By: #### C MP, MG, HS TROP, A1C WTH eA, LIPID, CBC #### [facility] [address] PT Coag (PPP) [Time] 11.3 s Normal 9.0-12.[address] [facility] Comment on above: Performed By: #### C MP, MG, HS TROP, A1C WTH eA, LIPID, CBC #### [facility] [address] RBC Auto (Bld) [#/Vol]Ordere d By: Galo Dent on 10-11-2022 RBC (Bld) [#/Vol] 4.21 10*6/uL 3.90-5.60 [facility] Serum or plasma albumin/glob ulin mass ratioOrdered By: Rubén Tatum on 10-11-2022 Albumin/Globulin [Mass ratio] 1.6 {ratio} [facility] Serum or plasma high density lipoprotein (HDL) cholesterol measurementOrdered By: Rubén Tatum on 10-11-2022 Cholesterol in HDL [Mass/Vol] 42 mg/dL 29-71 [facility] Comment on above: HDL CHOL ATP-III CLA SSIFICATION Cardiovascular RiskHDL > or equal to 60 mg/dL LOWHDL < 40 mg/dL HIGH Serum or plasma total choles terol/high density lipoprotein (HDL) cholesterol mass ratOrdered By: Rubén Tatum on 10-11-2022 Cholesterol.total/Chol esterol in HDL [Mass ratio] 5.3 {ratio} <5.0 [facility] Triglyceride [Mass/volume] i n Serum or PlasmaOrdered By: Rubén Tatum on 10-11-2022 Triglyceride [Mass/Vol] 152 mg/dL 0-149 [facility] Comment on above: TRIG ATP III CLASSIF ICATIONTRIG less than 150 mg/dL NormalTRIG 150-199 mg/dL Borderline highTRIG 200-500 mg/dL High TRIG greater than 500 mg/dL Very highStandard traceable to the Center for Disease Conrtrol and Prevention (CDC) test method. Troponin I High Sensitivityo n 10-11-2022 Troponin I High Sensitivity 3965.8 pg/mL Off scale high 0.0-20.0 [facility] Comment on above: Result Comment: Crit ical Result : Called to and read back by: HECTOR LOCO at: 10/11/2022 06:45:50 by:[id number] PERFORMED BY: [place] [address] PATHOLOGIST DIGITAL CONTENT COORDINATOR JANETTE DE LA FUENTE M.D. Performed By: #### C MP, MG, HS TROP, A1C WTH eA, LIPID, CBC #### [address] Troponin I.cardiac [Mass/vol ume] in Serum or Plasma by Detection limit <= 0.01 ng/Ordered By: Rubén Tatum on 10-11-2022 Troponin I.cardiac DL <= 0.01 ng/mL [Mass/Vol] 3965.8 pg/mL 0.0-20.0 [facility] Comment on above: Critical Result : Ca lled to and read back by: HECTOR LOCO at: 10/11/2022 06:45:50 by:[id number] WBC Auto (Bld) [#/Vol]Ordere d By: Galo Dent on 10-11-2022 WBC (Bld) [#/Vol] 6.6 10*3/uL 4.1-10.5 [facility] XR chest 2V*on 10-11-2022 XR chest 2V* [facility] [place] [address] [place] [address] XRay Report Signed Patient: Hector Gaspar SR MR#: [id number] : 1960 Acct:[id number] Age/Sex: 62 / M ADM Date: 10/10/22 Loc: Room: [address] [place] [address] Type: ADM IN Attending Dr: Barbara Rivero [...] Arlin Villafana M.D.10/11/2022 2:29 PM Dictation Location: [place] [address] Transcribed By: [facility] 10/11/22 142 Dictated By: Arlin Villafana II, MD 10/11/22 1428 Signed By: 10/11/[address] [facility] A1C with Estimated Average G luon 10-10-2022 Glucose [Mass/Vol] 117 mg/dL Normal [facility] Comment on above: Result Comment: PERF ORMED BY: [place] [address] PATHOLOGIST DIGITAL CONTENT COORDINATOR JANETTE DE LA FUENTE M.D. Performed By: #### C MP, MG, HS TROP, A1C WTH eA, LIPID, CBC #### [facility] [address] [place] [address] HbA1c (Bld) [Mass fraction] 5.7 % High 4.3-5.6 [facility] Comment on above: Result Comment: Incr eased risk for diabetes: 5.7 - 6.4 diabetes: >6.4 glycemic control for adults with diabetes: <7.0 Performed By: #### C MP, MG, HS TROP, A1C WTH eA, LIPID, CBC #### [facility] [address] [place] [address] AMYLASEon 10-10-2022 Amylase [Catalytic activity/Vol] 40 U/L Normal 25-115 [facility] Comment on above: Performed By: #### A MY, CMP, LIPA #### [facility] [address] [place] [address] [address] Carrington Chandler Activated partial thrombopla stin time (aPTT) in platelet poor plasma by coagulation aOrdered By: Galo Filipe on 10-10-2022 aPTT Coag (PPP) [Time] 35.9 s 25.1-36.5 [facility] CARDIAC ARLIN ADMITon 023 CK [Catalytic activity/Vol] 530 U/L Critically high 39-308 [facility] Comment on above: Performed By: #### A MY CMP, LIPA #### [facility] [address] [place] [address] [address] Carrington Chandler CK.MB [Mass/Vol] 60.47 ng/mL Critically high <=3.60 [facility] Comment on above: Performed By: #### A MY, CMP, LIPA #### [facility] [address] [place] [address] [address] Carrington Chandler HSTROP 9166.1 pg/mL Critically high 4.0-76.1 [facility] Comment on above: Result Comment: CUT- OFF POINTS HAVE BEEN ESTABLISHED BASED ON THE FOURTH UNIVERSAL DEFINITIONS OF MYOCARDIAL INFARCTION. THE UPPER REFERENCE LIMIT (URL) OF TROPONIN, DEFINED THE 99TH PERCENTILE OF cTnI DISTRIBUTION IN A REFERENCE POPULATION, HAS BEEN CONFIRMED THE DECISION THRESHOLD FOR CO DIAGNOSIS. Performed By: #### A MY, CMP, LIPA #### [facility] [address] [place] [address] [address] Carrington Chandler SAULO 108 ng/mL Critically high 16-96 [facility] Comment on above: Performed By: #### A MY, CMP, LIPA #### [facility] [address] [place] [address] [address] Carrington Chandler CBC AUTO DIFFon 10-10-2022 BASO # 0.0 103/ul Normal 0.0-0.1 [facility] Comment on above: Performed By: #### B MP #### [facility] [address] [place] [address] [address] Carrington Chandler Basophils/100 WBC (Bld) 0.4 % Normal 0.2-2.0 [facility] Comment on above: Performed By: #### B MP #### [facility] [address] [place] [address] [address] Carrington Chandler EO # 0.3 103/ul Normal 0.0-0.7 [facility] Comment on above: Performed By: #### B MP #### [facility] [address] [place] [address] Dr. Carrington Chandler Eosinophils/100 WBC (Bld) 4.9 % Normal 0.9-7.0 [facility] Comment on above: Performed By: #### B MP #### [facility] [address] [place] [address] Dr. Carrington Chandler Erythrocyte distribution width (RBC) [Ratio] 13.8 % Normal 11.0-15.0 [facility] Comment on above: Performed By: #### B MP #### [facility] [address] [place] [address] Dr. Carrington Chandler Hematocrit (Bld) [Volume fraction] 38.1 % Critically low 42.0-54.0 [facility] Comment on above: Performed By: #### B MP #### [facility] [address] [place] [address] Dr. Carrington Chandler Hemoglobin (Bld) [Mass/Vol] 13.1 g/dL Critically low 14.0-18.0 [facility] Comment on above: Performed By: #### B MP #### [facility] [address] [place] [address] Dr. Carrington Chandler IG # 0.01 10e3/ul Normal 0.00-0.03 [facility] Comment on above: Performed By: #### B MP #### [facility] [address] [place] [address] Dr. Carrington Chandler IG % 0.2 % Normal 0.0-0.5 [facility] Comment on above: Performed By: #### B MP #### [facility] [address] [place] [address] Dr. Carrington Chandler LYMPH # 1.8 103/ul Normal 1.2-3.8 [facility] Comment on above: Performed By: #### B MP #### [facility] [address] [place] [address] Dr. Carrington Chandler Lymphocytes/100 WBC (Bld) 33.5 % Normal 20.5-60.0 [facility] Comment on above: Performed By: #### B MP #### [facility] [address] [place] [address] Dr. Carrington Chandler MANUAL DIFF REQ NO Normal [facility] Comment on above: Performed By: #### B MP #### [facility] [address] [place] [address] Dr. Carrington Chandler MCH (RBC) [Entitic mass] 30.7 pg Normal 25.9-34.0 [facility] Comment on above: Performed By: #### B MP #### [facility] [address] [place] [address] Dr. Carrington Chandler MCHC (RBC) [Mass/Vol] 34.4 g/dL Normal 29.9-35.2 [facility] Comment on above: Performed By: #### B MP #### [facility] [address] [place] [address] Dr. Carrington Chandler MCV (RBC) [Entitic vol] 89.2 fL Normal 80.0-94.0 [facility] Comment on above: Performed By: #### B MP #### [facility] [address] [place] [address] Dr. Carrington Chandler MONO # 0.6 103/ul Normal 0.3-0.8 [facility] Comment on above: Performed By: #### B MP #### [facility] [address] [place] [address] Dr. Carrington Chandler Monocytes/100 WBC (Bld) 11.8 % Normal 1.7-12.0 [facility] Comment on above: Performed By: #### B MP #### [facility] [address] [place] [address] Dr. Carrington Chandler NEUT # 2.6 103/ul Normal 1.4-6.5 [facility] Comment on above: Performed By: #### B MP #### [facility] [address] [place] [address] [address] Carrington Chandler Neutrophils/100 WBC (Bld) 49.2 % Normal 43.0-75.0 [facility] Comment on above: Performed By: #### B MP #### [facility] [address] [place] [address] [address] Carrington Chandler Platelet mean volume (Bld) [Entitic vol] 9.2 fL Critically low 9.5-13.5 [facility] Comment on above: Performed By: #### B MP #### [facility] [address] [place] [address] [address] Carrington Chandler PLT 213 103/ul Normal 150-450 [facility] Comment on above: Performed By: #### B MP #### [facility] [address] [place] [address] [address] Carrington Chandler RBC 4.27 106/ul Critically low 4.70-6.10 [facility] Comment on above: Performed By: #### B MP #### [facility] [address] [place] [address] [address] Carrington Chandler WBC 5.4 103/ul Normal 4.0-11.0 [facility] Comment on above: Performed By: #### B MP #### [facility] [address] [place] [address] [address] Carrington Chandler Complete Blood Count Auto Di ffon 10-10-2022 Basophils (Bld) [#/Vol] 0.0 10*3/uL Normal 0.0-0.2 [facility] Comment on above: Result Comment: PERF ORMED BY: [facility] [address] [place] [address] PATHOLOGIST DIGITAL CONTENT COORDINATOR JANETTE DE LA FUENTE M.D. Performed By: #### C MP, MG, HS TROP, A1C WTH eA, LIPID, CBC #### [facility] [address] [place] [address] [place] Basophils/100 WBC (Bld) 0.6 % Normal . [facility] Comment on above: Performed By: #### C MP, MG, HS TROP, A1C WTH eA, LIPID, CBC #### [address] Eosinophils (Bld) [#/Vol] 0.2 10*3/uL Normal 0.0-0.45 [facility] Comment on above: Performed By: #### C MP, MG, HS TROP, A1C WTH eA, LIPID, CBC #### [address] Eosinophils/100 WBC (Bld) 4.4 % Normal . [facility] Comment on above: Performed By: #### C MP, MG, HS TROP, A1C WTH eA, LIPID, CBC #### [address] Erythrocyte distribution width (RBC) [Ratio] 14.6 % Normal 12.0-14.8 [facility] Comment on above: Performed By: #### C MP, MG, HS TROP, A1C WTH eA, LIPID, CBC #### [address] Hematocrit (Bld) [Volume fraction] 36.7 % Low 38.8-50.0 [facility] Comment on above: Performed By: #### C MP, MG, HS TROP, A1C WTH eA, LIPID, CBC #### [address] Hemoglobin (Bld) [Mass/Vol] 12.5 g/dL Low 13.0-17.0 [facility] Comment on above: Performed By: #### C MP, MG, HS TROP, A1C WTH eA, LIPID, CBC #### [address] Lymphocytes (Bld) [#/Vol] 1.4 10*3/uL Normal 1.00-4.8 [facility] Comment on above: Performed By: #### C MP, MG, HS TROP, A1C WTH eA, LIPID, CBC #### [address] Lymphocytes/100 WBC (Bld) 27.5 % Normal . [facility] Comment on above: Performed By: #### C MP, MG, HS TROP, A1C WTH eA, LIPID, CBC #### [address] MCH (RBC) [Entitic mass] 30.3 pg Normal 27.5-35.2 [facility] Comment on above: Performed By: #### C MP, MG, HS TROP, A1C WTH eA, LIPID, CBC #### [address] MCV (RBC) [Entitic vol] 88.8 fL Normal 83.5-101 [facility] Comment on above: Performed By: #### C MP, MG, HS TROP, A1C WTH eA, LIPID, CBC #### [address] Mean Corpuscular HGB Conc 34.1 g/dL Normal 32.5-35.6 [facility] Comment on above: Performed By: #### C MP, MG, HS TROP, A1C WTH eA, LIPID, CBC #### [address] Monocytes (Bld) [#/Vol] 0.6 10*3/uL Normal 0.0-0.8 [facility] Comment on above: Performed By: #### C MP, MG, HS TROP, A1C WTH eA, LIPID, CBC #### [address] Monocytes/100 WBC (Bld) 11.4 % Normal . [facility] Comment on above: Performed By: #### C MP, MG, HS TROP, A1C WTH eA, LIPID, CBC #### [address] Neutrophils (Bld) [#/Vol] 2.9 10*3/uL Normal 1.8-7.7 [facility] Comment on above: Performed By: #### C MP, MG, HS TROP, A1C WTH eA, LIPID, CBC #### [facility] [address] Neutrophils/100 WBC (Bld) 56.1 % Normal . [facility] Comment on above: Performed By: #### C MP, MG, HS TROP, A1C WTH eA, LIPID, CBC #### [facility] [address] NRBC% 0.1 /100{WBC} Normal 0-0.5 [facility] Comment on above: Performed By: #### C MP, MG, HS TROP, A1C WTH eA, LIPID, CBC #### [facility] [address] Platelet mean volume (Bld) [Entitic vol] 7.2 fL Normal 6.6-10.1 [facility] Comment on above: Performed By: #### C MP, MG, HS TROP, A1C WTH eA, LIPID, CBC #### [facility] [address] Platelets (Bld) [#/Vol] 199 10*3/uL Normal 150-450 [facility] Comment on above: Performed By: #### C MP, MG, HS TROP, A1C WTH eA, LIPID, CBC #### [address] RBC (Bld) [#/Vol] 4.13 10*6/uL Normal 3.90-5.60 [facility] Comment on above: Performed By: #### C MP, MG, HS TROP, A1C WTH eA, LIPID, CBC #### [facility] [address] WBC (Bld) [#/Vol] 5.1 10*3/uL Normal 4.1-10.5 [facility] Comment on above: Performed By: #### C MP, MG, HS TROP, A1C WTH eA, LIPID, CBC #### [facility] [address] Basophils (Bld) [#/Vol] 0.0 10*3/uL Normal 0.0-0.2 [facility] Comment on above: Result Comment: PERF ORMED BY: [place] [address] PATHOLOGIST DIGITAL CONTENT COORDINATOR JANETTE DE LA FUENTE M.D. Performed By: #### P T, CBC #### [facility] [address] [place] [address] Basophils/100 WBC (Bld) 0.6 % Normal . [facility] Comment on above: Performed By: #### P T, CBC #### [address] Eosinophils (Bld) [#/Vol] 0.2 10*3/uL Normal 0.0-0.45 [facility] Comment on above: Performed By: #### P T, CBC #### [address] Eosinophils/100 WBC (Bld) 4.6 % Normal . [facility] Comment on above: Performed By: #### P T, CBC #### [address] Erythrocyte distribution width (RBC) [Ratio] 14.9 % High 12.0-14.8 [facility] Comment on above: Performed By: #### P T, CBC #### [address] Hematocrit (Bld) [Volume fraction] 36.2 % Low 38.8-50.0 [facility] Comment on above: Performed By: #### P T, CBC #### [place] [address] [place] Hemoglobin (Bld) [Mass/Vol] 12.4 g/dL Low 13.0-17.0 [facility] Comment on above: Performed By: #### P T, CBC #### [facility] [address] [place] [address] Lymphocytes (Bld) [#/Vol] 1.4 10*3/uL Normal 1.00-4.8 [facility] Comment on above: Performed By: #### P T, CBC #### [address] Lymphocytes/100 WBC (Bld) 28.1 % Normal . [facility] Comment on above: Performed By: #### P T, CBC #### [facility] [address] MCH (RBC) [Entitic mass] 30.3 pg Normal 27.5-35.2 [facility] Comment on above: Performed By: #### P T, CBC #### [facility] [address] [place] [address] MCV (RBC) [Entitic vol] 88.5 fL Normal 83.5-101 [facility] Comment on above: Performed By: #### P T, CBC #### [address] Mean Corpuscular HGB Conc 34.2 g/dL Normal 32.5-35.6 [facility] Comment on above: Performed By: #### P T, CBC #### [place] [address] [place] Monocytes (Bld) [#/Vol] 0.6 10*3/uL Normal 0.0-0.8 [facility] Comment on above: Performed By: #### P T, CBC #### [place] [address] [place] Monocytes/100 WBC (Bld) 11.6 % Normal . [facility] Comment on above: Performed By: #### P T, CBC #### [address] Neutrophils (Bld) [#/Vol] 2.8 10*3/uL Normal 1.8-7.7 [facility] Comment on above: Performed By: #### P T, CBC #### [address] Neutrophils/100 WBC (Bld) 55.1 % Normal . [facility] Comment on above: Performed By: #### P T, CBC #### [address] NRBC% 0.1 /100{WBC} Normal 0-0.5 [facility] Comment on above: Performed By: #### P T, CBC #### [address] Platelet mean volume (Bld) [Entitic vol] 7.5 fL Normal 6.6-10.1 [facility] Comment on above: Performed By: #### P T, CBC #### [address] Platelets (Bld) [#/Vol] 201 10*3/uL Normal 150-450 [facility] Comment on above: Performed By: #### P T, CBC #### [address] RBC (Bld) [#/Vol] 4.09 10*6/uL Normal 3.90-5.60 [facility] Comment on above: Performed By: #### P T, CBC #### [address] WBC (Bld) [#/Vol] 5.1 10*3/uL Normal 4.1-10.5 [facility] Comment on above: Performed By: #### P T, CBC #### [address] Comprehensive Metabolic Pane weston 10-10-2022 Albumin [Mass/Vol] 4.1 g/dL Normal 3.5-5.7 [facility] Comment on above: Performed By: #### C MP, MG, HS TROP, A1C WTH eA, LIPID, CBC #### [address] Albumin/Globulin [Mass ratio] 1.6 {ratio} Normal [facility] Comment on above: Performed By: #### C MP, MG, HS TROP, A1C WTH eA, LIPID, CBC #### [address] ALP [Catalytic activity/Vol] 47 U/L Normal 34-104 [facility] Comment on above: Performed By: #### C MP, MG, HS TROP, A1C WTH eA, LIPID, CBC #### [facility] [address] ALT [Catalytic activity/Vol] 20 U/L Normal 7-52 [facility] Comment on above: Performed By: #### C MP, MG, HS TROP, A1C WTH eA, LIPID, CBC #### [facility] [address] Anion gap [Moles/Vol] 9.5 mmol/L Normal 6.0-15.0 [facility] Comment on above: Performed By: #### C MP, MG, HS TROP, A1C WTH eA, LIPID, CBC #### [facility] [address] AST [Catalytic activity/Vol] 48 U/L High 13-39 [facility] Comment on above: Performed By: #### C MP, MG, HS TROP, A1C WTH eA, LIPID, CBC #### [facility] [address] Bilirubin [Mass/Vol] 0.4 mg/dL Normal 0.3-1.[address] [facility] Comment on above: Performed By: #### C MP, MG, HS TROP, A1C WTH eA, LIPID, CBC #### [facility] [address] Calcium [Mass/Vol] 9.1 mg/dL Normal 8.6-10.3 [facility] Comment on above: Performed By: #### C MP, MG, HS TROP, A1C WTH eA, LIPID, CBC #### [facility] [address] [place] [address] [place] Chloride [Moles/Vol] 108 mmol/L High 98-[address] [facility] Comment on above: Performed By: #### C MP, MG, HS TROP, A1C WTH eA, LIPID, CBC #### [facility] [address] [place] [address] [place] CO2 [Moles/Vol] 25.6 mmol/L Normal 21.0-31.0 [facility] Comment on above: Performed By: #### C MP, MG, HS TROP, A1C WTH eA, LIPID, CBC #### [facility] [address] Creatinine [Mass/Vol] 1.04 mg/dL Normal 0.70-1.30 [facility] Comment on above: Performed By: #### C MP, MG, HS TROP, A1C WTH eA, LIPID, CBC #### [facility] [address] Creatinine Clr Calc Pharmacy 83.69 [facility] Comment on above: Performed By: #### C MP, MG, HS TROP, A1C WTH eA, LIPID, CBC #### [facility] [address] GFR/1.73 sq M.predicted MDRD (S/P/Bld) [Vol rate/Area] mL/min/{1.73_m2} [facility] Comment on above: Performed By: #### C MP, MG, HS TROP, A1C WTH eA, LIPID, CBC #### [facility] [address] Globulin (S) [Mass/Vol] 2.6 g/dL [facility] Comment on above: Performed By: #### C MP, MG, HS TROP, A1C WTH eA, LIPID, CBC #### [facility] [address] Glucose [Mass/Vol] 102 mg/dL Normal 74-109 [facility] Comment on above: Result Comment: [facility] Glucose Reference Range is dependent on time and content of last meal. Glucose of more than 200 mg/dL in a nonstressed, ambulatory subject supports the diagnosis of Diabetes Mellitus. ADA recommended reference range Performed By: #### C MP, MG, HS TROP, A1C WTH eA, LIPID, CBC #### [facility] [address] Potassium [Moles/Vol] 4.1 mmol/L Normal 3.5-5.1 [facility] Comment on above: Performed By: #### C MP, MG, HS TROP, A1C WTH eA, LIPID, CBC #### [facility] [address] Protein [Mass/Vol] 6.7 g/dL Normal 6.4-8.9 [facility] Comment on above: Performed By: #### C MP, MG, HS TROP, A1C WTH eA, LIPID, CBC #### [facility] [address] Sodium [Moles/Vol] 139 mmol/L Normal 136-145 [facility] Comment on above: Performed By: #### C MP, MG, HS TROP, A1C WTH eA, LIPID, CBC #### [facility] [address] Urea nitrogen [Mass/Vol] 18 mg/dL Normal 7-25 [facility] Comment on above: Performed By: #### C MP, MG, HS TROP, A1C WTH eA, LIPID, CBC #### [facility] [address] ECG 12 lead ECGon 10-10-2022 ECG 12 lead ECG [facility] Main [place] [address] [place] [address] Electrocardiograph Report Signed Patient: Hector Gaspar SR MR#: [id number] 187 : 1960 Acct:[id number] Age/Sex: 62 / M ADM Date: 10/10/22 Loc: Room: [address] [place] [address] Type: ADM IN Attending Dr: Barbara Rivero [...] Signed By Edilson Cruz DO 10/11 1132 [facility] ECG 12 lead ECG [facility] [place] [address] Electrocardiograph Report Signed Patient: Hector Gaspar SR MR#: [id number] 187 : 1960 Acct:[id number] Age/Sex: 62 / M ADM Date: 10/10/22 Loc: 4 Room: [address] [place] [address] Type: ADM IN Attending Dr: Barbara Rivero [...] Signed By Edilson Cruz DO 10/10 1203 [facility] ECH echo transthoracicon ECH echo transthoracic [facility] [place] [address] Echocardiogram Signed Patient: Hector Gaspar SR MR#: [id number] 187 : 1960 Acct:[id number] Age/Sex: 62 / M ADM Date: 10/10/22 Loc: 4 Room: [address] [place] [address] Type: ADM IN Attending Dr: Barbara Rivero MD Ordering Provider: Galo Dent MD Date of Service: 10/10/22 [facility] echo transthoracic: NSTMI Copies to: Mohsen Fernandez MD, [facility] Galo Dent MD Weight: 224 lb [...] 10/10/22 0914 Signed By: Mohsen Fernandez MD, FAC 10/10/[address] [facility] LIPASEon 10-10-2022 Lipase [Catalytic activity/Vol] 212.0 U/L Normal 73.0-393.0 [facility] Comment on above: Performed By: #### A MY, CMP, LIPA #### [facility] [address] [address] [address] Carrington Chandler Lipid Panelon 10-10-2022 Cholesterol [Mass/Vol] 235 mg/dL High 140-200 [facility] Comment on above: Result Comment: Chol less than 200 mg/dl low risk Chol 201-239 mg/dl borderline risk Chol 240 mg/dl and greater high risk Performed By: #### C MP, MG, HS TROP, A1C WTH eA, LIPID, CBC #### [facility] [address] [place] [id number] [place] Cholesterol in HDL [Mass/Vol] 48 mg/dL Normal 29-71 [facility] Comment on above: Result Comment: HDL CHOL ATP-III CLASSIFICATION Cardiovascular Risk HDL > or equal to 60 mg/dL LOW HDL < 40 mg/dL HIGH Performed By: #### C MP, MG, HS TROP, A1C WTH eA, LIPID, CBC #### [facility] [address] [place] [address] [place] Cholesterol.total/Chol esterol in HDL [Mass ratio] 4.9 {ratio} Normal <5.0 [facility] Comment on above: Result Comment: PERF ORMED BY: [place] [address] PATHOLOGIST DIGITAL CONTENT COORDINATOR JANETTE DE LA FUENTE M.D. Performed By: #### C MP, MG, HS TROP, A1C WTH eA, LIPID, CBC #### [facility] [address] LDL Cholesterol,Calculated 164 mg/dL High 0-100 [facility] Comment on above: Result Comment: LDL ATP III CLASSIFICATION LDL less than 100 mg/dL Optimal LDL 100-129 mg/dL Near or above optimal LDL 130-159 mg/dL Borderline high LDL 160-189 mg/dL High LDL greater than 189 mg/dL Very high Performed By: #### C MP, MG, HS TROP, A1C WTH eA, LIPID, CBC #### [facility] [address] Triglyceride w/Reflex 116 mg/dL Normal 0-149 [facility] Comment on above: Result Comment: TRIG ATP III CLASSIFICATION TRIG less than 150 mg/dL Normal TRIG 150-199 mg/dL Borderline high TRIG 200-500 mg/dL High TRIG greater than 500 mg/dL Very high Standard traceable to the Center for Disease Conrtrol and Prevention (CDC) test method. Performed By: #### C MP, MG, HS TROP, A1C WTH eA, LIPID, CBC #### [facility] [address] VLDL CHOLESTEROL 23 mg/dL Normal [facility] Comment on above: Performed By: #### C MP, MG, HS TROP, A1C WTH eA, LIPID, CBC #### [facility] [address] [place] [id number] [facility] Magnesiumon 10-10-2022 Magnesium [Mass/Vol] 2.0 mg/dL Normal 1.9-2.[address] [facility] Comment on above: Performed By: #### C MP, MG, HS TROP, A1C WTH eA, LIPID, CBC #### [facility] [address] [place] [address] [place] PROF 14(COMP METB)on 023 Albumin [Mass/Vol] 3.9 g/dL Normal 3.4-5.0 [facility] Comment on above: Performed By: #### A MY, CMP, LIPA #### [facility] [address] [address] [address] Carrington Chandler Albumin/Globulin [Mass ratio] 1.2 {ratio} Normal [facility] Comment on above: Performed By: #### A MY, CMP, LIPA #### [facility] [address] [address] [address] Carrington Chandler ALP [Catalytic activity/Vol] 67 U/L Normal 46-116 [facility] Comment on above: Performed By: #### A MY, CMP, LIPA #### [facility] [address] [address] [address] Carrington Chandler ALT [Catalytic activity/Vol] 30 U/L Normal 16-63 [facility] Comment on above: Performed By: #### A MY, CMP, LIPA #### [facility] [address] [address] [address] Carrington Chandler Anion gap [Moles/Vol] 12.8 mmol/L Normal [facility] Comment on above: Performed By: #### A MY, CMP, LIPA #### [facility] [address] [address] [address] Carrington Chandler AST [Catalytic activity/Vol] 58 U/L Critically high 15-37 [facility] Comment on above: Performed By: #### A MY, CMP, LIPA #### [facility] [address] [address] [address] Carrington Chandler Bilirubin [Mass/Vol] 0.3 mg/dL Normal 0.2-1.0 [facility] Comment on above: Performed By: #### A MY, CMP, LIPA #### [facility] [address] [address] [address] Carrington Chandler Calcium [Mass/Vol] 8.9 mg/dL Normal 8.5-10.1 [facility] Comment on above: Performed By: #### A MY, CMP, LIPA #### [facility] [address] [place] [address] Dr. Carrington Chandler Chloride [Moles/Vol] 101 mmol/L Normal 98-107 [facility] Comment on above: Performed By: #### A MY, CMP, LIPA #### [facility] [address] [address] [address] Carrington Chandler CO2 [Moles/Vol] 26.0 mmol/L Normal 21.0-32.0 [facility] Comment on above: Performed By: #### A MY, CMP, LIPA #### [facility] [address] [address] [address] Carrington Chandler Creatinine [Mass/Vol] 0.98 mg/dL Normal 0.70-1.30 [facility] Comment on above: Performed By: #### A MY, CMP, LIPA #### [facility] [address] [address] [address] Carrington Chandler EGFR-AF PORTUGUESE >60 Normal >=60 [facility] Comment on above: Performed By: #### A MY, CMP, LIPA #### [facility] [address] [address] [address] Carrington Chandler EGFR-NON AF PORTUGUESE >60 Normal >=60 [facility] Comment on above: Performed By: #### A MY, CMP, LIPA #### [facility] [address] [address] [address] Carrington Chandler Globulin (S) [Mass/Vol] 3.2 g/dL Normal [facility] Comment on above: Performed By: #### A MY, CMP, LIPA #### [facility] [address] [address] [address] Carrington Chandler Glucose [Mass/Vol] 101 mg/dL Normal 74-106 [facility] Comment on above: Performed By: #### A MY, CMP, LIPA #### [facility] [address] [address] [address] Carrington Chandler Potassium [Moles/Vol] 3.8 mmol/L Normal 3.5-5.1 [facility] Comment on above: Performed By: #### A MY, CMP, LIPA #### [facility] [address] [address] [address] Carrington Chandler Protein [Mass/Vol] 7.1 g/dL Normal 6.4-8.2 [facility] Comment on above: Performed By: #### A MY, CMP, LIPA #### [facility] [address] [place] [address] Dr. Carrington Chandler Sodium [Moles/Vol] 136 mmol/L Normal 136-145 [facility] Comment on above: Performed By: #### A MY, CMP, LIPA #### [facility] [address] [place] [address] Dr. Carrington Chandler Urea nitrogen [Mass/Vol] 19.0 mg/dL Critically high 7.0-18.0 [facility] Comment on above: Performed By: #### A MY, CMP, LIPA #### [facility] [address] [place] [address] Dr. Carrington Chandler Urea nitrogen/Creatinine [Mass ratio] 19.4 mg/mg Normal [facility] Comment on above: Performed By: #### A MY, CMP, LIPA #### [facility] [address] [place] [address] Dr. Carrington Chandler PROTIMEon 10-10-2022 INR Coag (PPP) [Relative time] {INR} Normal [facility] Comment on above: Performed By: #### B MP #### [facility] [address] [place] [address] Dr. Carrington Chandler INR GUIDELINES SEE BELOW Normal [facility] Comment on above: Result Comment: LYNDON RED INR: 2.0 - 3.0 CONDITIONS NOT LISTED BELOW 2.5 - 3.5 FOR PROSTHETIC HEART VALVE REPLACEMENT 2.5 - 3.5 RECURRENT THROMBOSIS Performed By: #### B MP #### [facility] [address] [place] [address] Dr. Carrington Chandler PT Coag (PPP) [Time] 9.7 s Normal 9.0-11.6 [facility] Comment on above: Performed By: #### B MP #### [facility] [address] [place] [address] Dr. Carrington Chandler PTTon 10-10-2022 aPTT Coag (Bld) [Time] 29.5 s Normal 22.3-36.2 [facility] Comment on above: Performed By: #### B MP #### [facility] [address] [place], [place] [address] Dr. Carrington Chandler Partial Thromboplastin Timeo n 10-10-2022 aPTT Coag (Bld) [Time] 35.9 s Normal 25.1-36.5 [facility] Comment on above: Result Comment: PERF ORMED BY: [place] [address] PATHOLOGIST DIGITAL CONTENT COORDINATOR JANETTE DE LA FUENTE M.D. Performed By: #### C MP, MG, HS TROP, A1C WTH eA, LIPID, CBC #### [facility] [address] [place] [id number] [facility] Prothrombin Time INRon 10-10 INR Coag (PPP) [Relative time] 0.9 {INR} Normal [facility] Comment on above: Result Comment: INR Therapeutic [...] heart valves: 3 - 4.5 PERFORMED BY: [place] [address] PATHOLOGIST DIGITAL CONTENT COORDINATOR JANETTE DE LA FUENTE M.D. Performed By: #### P T, CBC #### [facility] [address] [place], [place] [phone] [facility] PT Coag (PPP) [Time] 10.9 s Normal 9.0-12.[address] [facility] Comment on above: Performed By: #### P T, CBC #### [facility] [address] [place] [address] Troponin I High Sensitivityo n 10-10-2022 Troponin I High Sensitivity 7787.7 pg/mL Off scale high 0.0-20.0 [facility] Comment on above: Order Comment: Comme nt Q 3 hrs Result Comment: Resu lts called at 0817 on 10/10/22 --- 10/10/22 0819 --- Trop HS previously reported as: 7787.7 *H pg/mL PERFORMED BY: [facility] [address] [facility] [place] [address] PATHOLOGIST DIGITAL CONTENT COORDINATOR JANETTE DE LA FUENTE M.D. Performed By: #### C MP, MG, HS TROP, A1C WTH eA, LIPID, CBC #### [facility] [address] XR ABD FLAT UP_PA Jean-Pierre 10-10 [...] XIOMARA SCHNEIDER Date: 2022-10-10 00:33 Normal [facility] XR knee RT 3Von 09-09-2022 XR knee RT 3V [facility] [employer] Other XR knee RT 3V [facility] Main [facility] [employer] Other XR knee RT 3V 1111 [facility] [employer] Other XR knee RT 3V [place] [id number] [facility] [employer] Other XR knee RT 3V XRay Report [employer] Other XR knee RT 3V Signed [place] [employer] Other XR knee RT 3V Patient: Hector Gaspar SR MR#: [id number] [employer] Other XR knee RT 3V 187 [employer] Other XR knee RT 3V : 1960 Acct:[id number] [employer] Other XR knee RT 3V Age/Sex: 62 / M ADM Date: 09/09/22 [employer] Other XR knee RT 3V Loc: [facility] Room: Type : REG CLI [employer] Other XR knee RT 3V Attending Dr: Wagner Marrufo DO [employer] Other XR knee RT 3V Copies to: Wagner Marrufo DO [employer] Other XR knee RT 3V Ordering Provider: Judy Marrufo DO [employer] Other XR knee RT 3V Date of Service: 09/09/22 [employer] Other XR knee RT 3V XR/XR knee RT 3V - NOT FOR ER USE: Acute pain of right knee [employer] Other XR knee RT 3V RIGHT KNEE - 3 views N [employer] Other XR knee RT 3V CLINICAL HISTORY: Generalized right knee pain for 2 weeks. [employer] Other XR knee RT 3V COMPARISON: None [employer] Other XR knee RT 3V FINDINGS: [employer] Other XR knee RT 3V Small knee joint effusion. Mild degenerative changes without acute bony process. Presumed loose [employer] Other XR knee RT 3V body seen anteriorly within the joint space. [employer] Other XR knee RT 3V X R/XR knee RT 3V - NOT FOR ER USE [employer] Other XR knee RT 3V IMPRESSION: [employer] Other XR knee RT 3V MILD DEGENERATIVE CH ANGES WITHOUT ACUTE BONY PROCESS. [employer] Other XR knee RT 3V Impression dictated by: Paul Apple Jr.OEhsan09/09/2022 3:40 PM [employer] Other XR knee RT 3V Dictation Location: [place] [address] [employer] Other XR knee RT 3V Transcribed By: PWS 09/09/22 1540 [employer] Other XR knee RT 3V Dictated By: Parrish Layton Jr, DO 09/09/22 1534 [employer] Other XR knee RT 3V Signed By: [employer] Other XR knee RT 3V 09/09/22 1541 [employer] Other XR knee RT 3V - NOT FOR ER U Al 09-09-2022 XR knee RT 3V - NOT FOR ER USE [facility] Main [place] [address] [place] [address] XRay Report Signed Patient: Hector Gaspar MR#: [id number] 187 : 1960 Acct:[id number] Age/Sex: 62 / M ADM Date: 09/09/22 Loc: [facility] Room: Type: [facility] Attending Dr: Wagner Marrufo DO Copies to: [...] WITHOUT ACUTE BONY PROCESS. Impression dictated by: Sarwat Apple Jr..OEhsan09/09/2022 3:40 PM Dictation Location: [place] [address] Transcribed By: [facility] 09/09/22 1540 Dictated By: Parrish Layton Jr, DO 09/09/22 1539 Signed By: 09/09/22 1540 [facility] CBC AUTO DIFFon 09-08-2022 BASO # 0.0 103/ul Normal 0.0-0.1 [facility] Comment on above: Performed By: #### C BC #### [facility] [address] [address] [address] Carrington Chandler Basophils/100 WBC (Bld) 0.4 % Normal 0.2-2.0 [facility] Comment on above: Performed By: #### C BC #### [facility] [address] [place] [address] Dr. Carrington Chandler EO # 0.3 103/ul Normal 0.0-0.7 [facility] Comment on above: Performed By: #### C BC #### [facility] [address] [address] [address] Carrington Chandler Eosinophils/100 WBC (Bld) 4.9 % Normal 0.9-7.0 [facility] Comment on above: Performed By: #### C BC #### [facility] [address] [place] [address] Dr. Carrington Chandler Erythrocyte distribution width (RBC) [Ratio] 14.0 % Normal 11.0-15.0 [facility] Comment on above: Performed By: #### C BC #### [facility] [address] [place] [address] Dr. Carrington Chandler Hematocrit (Bld) [Volume fraction] 36.9 % Critically low 42.0-54.0 [facility] Comment on above: Performed By: #### C BC #### [facility] [address] [place] [address] Dr. Carrington Chandler Hemoglobin (Bld) [Mass/Vol] 12.2 g/dL Critically low 14.0-18.0 [facility] Comment on above: Performed By: #### C BC #### [facility] [address] [place] [address] Dr. Carrington Chandler IG # 0.01 10e3/ul Normal 0.00-0.03 [facility] Comment on above: Performed By: #### C BC #### [facility] [address] [place] [address] Dr. Carrington Chandler IG % 0.2 % Normal 0.0-0.5 [facility] Comment on above: Performed By: #### C BC #### [facility] [address] [place] [address] Dr. Carrington Chandler LYMPH # 1.7 103/ul Normal 1.2-3.8 [facility] Comment on above: Performed By: #### C BC #### [facility] [address] [place] [address] Dr. Carrington Chandler Lymphocytes/100 WBC (Bld) 30.6 % Normal 20.5-60.0 [facility] Comment on above: Performed By: #### C BC #### [facility] [address] [place] [address] Dr. Carrington Chandler MANUAL DIFF REQ NO Normal [facility] Comment on above: Performed By: #### C BC #### [facility] [address] [place] [address] Dr. Carrington Chandler MCH (RBC) [Entitic mass] 30.3 pg Normal 25.9-34.0 [facility] Comment on above: Performed By: #### C BC #### [facility] [address] [place] [address] Dr. Carrington Chandler MCHC (RBC) [Mass/Vol] 33.1 g/dL Normal 29.9-35.2 [facility] Comment on above: Performed By: #### C BC #### [facility] [address] [place] [address] Dr. Carrington Chandler MCV (RBC) [Entitic vol] 91.6 fL Normal 80.0-94.0 [facility] Comment on above: Performed By: #### C BC #### [facility] [address] [place] [address] Dr. Carrington Chandler MONO # 0.6 103/ul Normal 0.3-0.8 [facility] Comment on above: Performed By: #### C BC #### [facility] [address] [place] [address] Dr. Carrington Chandler Monocytes/100 WBC (Bld) 9.9 % Normal 1.7-12.0 [facility] Comment on above: Performed By: #### C BC #### [facility] [address] [place] [address] Dr. Carrington Chandler NEUT # 3.0 103/ul Normal 1.4-6.5 [facility] Comment on above: Performed By: #### C BC #### [facility] [address] [place] [address] Dr. Carrington Chandler Neutrophils/100 WBC (Bld) 54.0 % Normal 43.0-75.0 [facility] Comment on above: Performed By: #### C BC #### [facility] [address] [place] [address] Dr. Carrington Chandler Platelet mean volume (Bld) [Entitic vol] 8.9 fL Critically low 9.5-13.5 [facility] Comment on above: Performed By: #### C BC #### [facility] [address] [place] [address] Dr. Carrington Chandler PLT 189 103/ul Normal 150-450 [facility] Comment on above: Performed By: #### C BC #### [facility] [address] [place] [address] Dr. Carrington Chandler RBC 4.03 106/ul Critically low 4.70-6.10 [facility] Comment on above: Performed By: #### C BC #### [facility] [address] [place] [address] Dr. Carrington Chandler WBC 5.5 103/ul Normal 4.0-11.0 [facility] Comment on above: Performed By: #### C BC #### [facility] [address] [place] [address] Dr. Carrington Chandler CRPon 09-08-2022 CRP 0.5 mg/dL Normal <=1.0 [facility] Comment on above: Performed By: #### A MY, CMP, LIPA #### [facility] [address] [address] [address] Carrington Chandler PROF CHEM 8 (BAS METB)on Anion gap [Moles/Vol] 12.7 mmol/L Normal [facility] Comment on above: Performed By: #### A MY, CMP, LIPA #### [facility] [address] [address] [address] Carrington Chandler Calcium [Mass/Vol] 8.6 mg/dL Normal 8.5-10.1 [facility] Comment on above: Performed By: #### A MY, CMP, LIPA #### [facility] [address] [place] [address] Dr. Carrington Chandler Chloride [Moles/Vol] 102 mmol/L Normal 98-107 [facility] Comment on above: Performed By: #### A MY, CMP, LIPA #### [facility] [address] [place] [address] Dr. Carrington Chandler CO2 [Moles/Vol] 27.2 mmol/L Normal 21.0-32.0 [facility] Comment on above: Performed By: #### A MY, CMP, LIPA #### [facility] [address] [place] [address] Dr. Carrington Chandler Creatinine [Mass/Vol] 1.11 mg/dL Normal 0.70-1.30 [facility] Comment on above: Performed By: #### A MY, CMP, LIPA #### [facility] [address] [place] [address] Dr. Carrington Chandler EGFR-AF PORTUGUESE >60 Normal >=60 [facility] Comment on above: Performed By: #### A MY, CMP, LIPA #### [facility] [address] [place] [address] Dr. Carrington Chandler EGFR-NON AF PORTUGUESE >60 Normal >=60 [facility] Comment on above: Performed By: #### A MY, CMP, LIPA #### [facility] [address] [address] [address] Carrington Chandler Glucose [Mass/Vol] 132 mg/dL Critically high 74-106 [facility] Comment on above: Performed By: #### A MY, CMP, LIPA #### [facility] [address] [address] [address] Carrington Chandler Potassium [Moles/Vol] 3.9 mmol/L Normal 3.5-5.1 [facility] Comment on above: Performed By: #### A MY, CMP, LIPA #### [facility] [address] [address] [address] Carrington Chandler Sodium [Moles/Vol] 138 mmol/L Normal 136-145 [facility] Comment on above: Performed By: #### A MY, CMP, LIPA #### [facility] [address] [address] [address] Carrington Chandler Urea nitrogen [Mass/Vol] 18.0 mg/dL Normal 7.0-18.0 [facility] Comment on above: Performed By: #### A MY, CMP, LIPA #### [facility] [address] [address] [address] Carrington Chandler Urea nitrogen/Creatinine [Mass ratio] 16.2 mg/mg Normal [facility] Comment on above: Performed By: #### A MY, CMP, LIPA #### [facility] [address] [address] [address] Carrington Chandler US CARR[place] DOP LEG [...] a popliteal cyst. Electronically authenticated by: CYNTHIA BLUNTADÁN Date: 2022-09-07 22:52 Normal [facility] HEMOGLOBINon 08-10-2022 Hemoglobin (Bld) [Mass/Vol] 13.3 g/dL Critically low 14.0-18.0 [facility] Comment on above: Performed By: #### B MP #### [facility] [address] [place] [address] Dr. Carrington Chandler CBC W MANUAL DIFFon 07-11-20 ATYPICAL LYMPH # 0.65 103/ul Normal [facility] Comment on above: Performed By: #### A MY, CMP, LIPA #### [facility] [address] [place] [address] Dr. Carrington Chandler ATYPICAL LYMPH % 11 % Normal [facility] Comment on above: Performed By: #### A MY, CMP, LIPA #### [facility] [address] [place] [address] Dr. Carrington Chandler BAND # 0.0 103/ul Normal 0.0-0.3 [facility] Comment on above: Performed By: #### A MY, CMP, LIPA #### [facility] [address] [place] [address] Dr. Carrington Chandler BAND % 0 % Normal 0-5 [facility] Comment on above: Performed By: #### A MY, CMP, LIPA #### [facility] [address] [place] [address] Dr. Carrington Chandler BASOM # 0.00 103/ul Normal 0.00-0.10 [facility] Comment on above: Performed By: #### A MY, CMP, LIPA #### [facility] [address] [place] [address] Dr. Carrington Chandler BASOM % 0.0 % Critically low 0.2-2.0 [facility] Comment on above: Performed By: #### A MY, CMP, LIPA #### [facility] [address] [address] [address] Carrington Chandler BLAST # Normal [facility] Comment on above: Performed By: #### A MY, CMP, LIPA #### [facility] [address] [place] [address] Dr. Carrington Chandler BLAST % Normal [facility] Comment on above: Performed By: #### A MY, CMP, LIPA #### [facility] [address] [place] [address] Dr. Carrington Chandler CORRECTED WBC Normal 4.0-11.0 [facility] Comment on above: Performed By: #### A MY, CMP, LIPA #### [facility] [address] [place] [address] Dr. Carrington Chandler EOS # 0.00 103/ul Normal 0.00-0.70 [facility] Comment on above: Performed By: #### A MY, CMP, LIPA #### [facility] [address] [place] [address] Dr. Carrington Chandler EOS% 0.0 % Critically low 0.9-7.0 [facility] Comment on above: Performed By: #### A MY, CMP, LIPA #### [facility] [address] [place] [address] Dr. Carrington Chandler HCT 34.7 % Critically low 42.0-54.0 [facility] Comment on above: Performed By: #### A MY, CMP, LIPA #### [facility] [address] [place] [address] Dr. Carrington Chandler HGB 11.7 g/dl Critically low 14.0-18.0 [facility] Comment on above: Performed By: #### A MY, CMP, LIPA #### [facility] [address] [place] [address] Dr. Carrington Chandler LYMPHM # 0.12 103/ul Critically low 1.20-3.80 [facility] Comment on above: Performed By: #### A MY, CMP, LIPA #### [facility] [address] [place] [address] Dr. Carrington Chandler LYMPHM% 2.0 % Critically low 20.5-60.0 [facility] Comment on above: Performed By: #### A MY, CMP, LIPA #### [facility] [address] [address] [address] Carrington Chandler MCH 29.9 pg Normal 25.9-34.0 [facility] Comment on above: Performed By: #### A MY, CMP, LIPA #### [facility] [address] [address] [address] Carrington Chandler MCHC 33.7 g/dl Normal 29.9-35.2 [facility] Comment on above: Performed By: #### A MY, CMP, LIPA #### [facility] [address] [place] [address] Dr. Carrington Chandler MCV 88.7 fL Normal 80.0-94.0 [facility] Comment on above: Performed By: #### A MY, CMP, LIPA #### [facility] [address] [place] [address] Dr. Carrington Chandler METAMYELOCYTE # Normal [facility] Comment on above: Performed By: #### A MY, CMP, LIPA #### [facility] [address] [place] [address] Dr. Carrington Chandler METAMYELOCYTE % Normal [facility] Comment on above: Performed By: #### A MY, CMP, LIPA #### [facility] [address] [address] [address] Carrington Chandler MONOM# 0.00 103/ul Critically low 0.30-0.80 [facility] Comment on above: Performed By: #### A MY, CMP, LIPA #### [facility] [address] [address] [address] Carrington Chandler MONOM% 0.0 % Critically low 1.7-12.0 [facility] Comment on above: Performed By: #### A MY, CMP, LIPA #### [facility] [address] [address] [address] Carrington Chandler MPV 9.4 fL Critically low 9.5-13.5 [facility] Comment on above: Performed By: #### A MY, CMP, LIPA #### [facility] [address] [address] [address] Carrington Chandler MYELOCYTE # Normal [facility] Comment on above: Performed By: #### A MY, CMP, LIPA #### [facility] [address] [address] [address] Carrington Chandler MYELOCYTE % Normal [facility] Comment on above: Performed By: #### A MY, CMP, LIPA #### [facility] [address] [address] [address] Carrington Chandler NRBC Normal [facility] Comment on above: Performed By: #### A MY, CMP, LIPA #### [facility] [address] [address] [address] Carrington Chandler PLT 160 103/ul Normal 150-450 [facility] Comment on above: Performed By: #### A MY, CMP, LIPA #### [facility] [address] [address] [address] Carrington Chandler RBC 3.91 106/ul Critically low 4.70-6.10 [facility] Comment on above: Performed By: #### A MY, CMP, LIPA #### [facility] [address] [place] [address] Dr. Carrington Chandler RDW 12.4 % Normal 11.0-15.0 [facility] Comment on above: Performed By: #### A MY, CMP, LIPA #### [facility] [address] [place] [address] Dr. Carrington Chandler SEG # 5.13 103/ul Normal 1.40-6.50 [facility] Comment on above: Performed By: #### A MY, CMP, LIPA #### [facility] [address] [place] [address] Dr. Carrington Chandler SEG % 87.0 % Critically high 43.0-75.0 [facility] Comment on above: Performed By: #### A MY, CMP, LIPA #### [facility] [address] [address] [address] Carrington Chandler WBC 5.9 103/ul Normal 4.0-11.0 [facility] Comment on above: Performed By: #### A MY, CMP, LIPA #### [facility] [address] [address] [address] Carrington Chandler PROF 14(COMP METB)on 022 Albumin [Mass/Vol] 3.0 g/dL Critically low 3.4-5.0 [facility] Comment on above: Performed By: #### C MP #### [facility] [address] [place] [address] Dr. Carrington Chandler Albumin/Globulin [Mass ratio] 0.9 {ratio} Normal [facility] Comment on above: Performed By: #### C MP #### [facility] [address] [place] [address] Dr. Carrington Chandler ALP [Catalytic activity/Vol] 56 U/L Normal 46-116 [facility] Comment on above: Performed By: #### C MP #### [facility] [address] [place] [address] Dr. Carrington Chandler ALT [Catalytic activity/Vol] 21 U/L Normal 16-63 [facility] Comment on above: Performed By: #### C MP #### [facility] [address] [place] [address] Dr. Carrington Chandler Anion gap [Moles/Vol] 12.9 mmol/L Normal [facility] Comment on above: Performed By: #### C MP #### [facility] [address] [place] [address] Dr. Carrington Chandler AST [Catalytic activity/Vol] 15 U/L Normal 15-37 [facility] Comment on above: Performed By: #### C MP #### [facility] [address] [place] [address] Dr. Carrington Chandler Bilirubin [Mass/Vol] 0.2 mg/dL Normal 0.2-1.0 [facility] Comment on above: Performed By: #### C MP #### [facility] [address] [address] [address] Carrington Chandler Calcium [Mass/Vol] 8.1 mg/dL Critically low 8.5-10.1 [facility] Comment on above: Performed By: #### C MP #### [facility] [address] [address] [address] Carrington Chandler Chloride [Moles/Vol] 104 mmol/L Normal 98-107 [facility] Comment on above: Performed By: #### C MP #### [facility] [address] [address] [address] Carrington Chandler CO2 [Moles/Vol] 24.6 mmol/L Normal 21.0-32.0 [facility] Comment on above: Performed By: #### C MP #### [facility] [address] [place] [address] Dr. Carrington Chandler Creatinine [Mass/Vol] 0.88 mg/dL Normal 0.70-1.30 [facility] Comment on above: Performed By: #### C MP #### [facility] [address] [place] [address] Dr. Carrington Chandler EGFR-AF PORTUGUESE >60 Normal >=60 [facility] Comment on above: Performed By: #### C MP #### [facility] [address] [place] [address] Dr. Carrington Chandler EGFR-NON AF PORTUGUESE >60 Normal >=60 [facility] Comment on above: Performed By: #### C MP #### [facility] [address] [place] [address] Dr. Carrington Chandler Globulin (S) [Mass/Vol] 3.3 g/dL Normal [facility] Comment on above: Performed By: #### C MP #### [facility] [address] [place] [address] Dr. Carrington Chandler Glucose [Mass/Vol] 174 mg/dL Critically high 74-106 [facility] Comment on above: Performed By: #### C MP #### [facility] [address] [place] [address] Dr. Carrington Chandler Potassium [Moles/Vol] 3.5 mmol/L Normal 3.5-5.1 [facility] Comment on above: Performed By: #### C MP #### [facility] [address] [place] [address] Dr. Carrington Chandler Protein [Mass/Vol] 6.3 g/dL Critically low 6.4-8.2 [facility] Comment on above: Performed By: #### C MP #### [facility] [address] [place] [address] Dr. Carrington Chandler Sodium [Moles/Vol] 138 mmol/L Normal 136-145 [facility] Comment on above: Performed By: #### C MP #### [facility] [address] [place] [address] Dr. Carrington Chandler Urea nitrogen [Mass/Vol] 17.0 mg/dL Normal 7.0-18.0 [facility] Comment on above: Performed By: #### C MP #### [facility] [address] [place] [address] Dr. Carrington Chandler Urea nitrogen/Creatinine [Mass ratio] 19.3 mg/mg Normal [facility] Comment on above: Performed By: #### C MP #### [facility] [address] [place] [address] Dr. Carrington Chandler CBC AUTO DIFFon 07-10-2022 BASO # 0.0 103/ul Normal 0.0-0.1 [facility] Comment on above: Performed By: #### B MP #### [facility] [address] [place] [address] Dr. Carrington Chandler Basophils/100 WBC (Bld) 0.2 % Normal 0.2-2.0 [facility] Comment on above: Performed By: #### B MP #### [facility] [address] [place] [address] Dr. Carrington Chandler EO # 0.1 103/ul Normal 0.0-0.7 [facility] Comment on above: Performed By: #### B MP #### [facility] [address] [place] [address] Dr. Carrington Chandler Eosinophils/100 WBC (Bld) 2.3 % Normal 0.9-7.0 [facility] Comment on above: Performed By: #### B MP #### [facility] [address] [place] [address] Dr. Carrington Chandler Erythrocyte distribution width (RBC) [Ratio] 12.5 % Normal 11.0-15.0 [facility] Comment on above: Performed By: #### B MP #### [facility] [address] [place] [address] Dr. Carrington Chandler Hematocrit (Bld) [Volume fraction] 36.8 % Critically low 42.0-54.0 [facility] Comment on above: Performed By: #### B MP #### [facility] [address] [place] [address] Dr. Carrington Chandler Hemoglobin (Bld) [Mass/Vol] 12.3 g/dL Critically low 14.0-18.0 [facility] Comment on above: Performed By: #### B MP #### [facility] [address] [place] [address] Dr. Carrington Chandler IG # 0.01 10e3/ul Normal 0.00-0.03 [facility] Comment on above: Performed By: #### B MP #### [facility] [address] [place] [address] Dr. Carrington Chandler IG % 0.2 % Normal 0.0-0.5 [facility] Comment on above: Performed By: #### B MP #### [facility] [address] [place] [address] Dr. Carrington Chandler LYMPH # 1.5 103/ul Normal 1.2-3.8 [facility] Comment on above: Performed By: #### B MP #### [facility] [address] [place] [address] Dr. Carrington Chandler Lymphocytes/100 WBC (Bld) 34.7 % Normal 20.5-60.0 [facility] Comment on above: Performed By: #### B MP #### [facility] [address] [place] [address] Dr. Carrington Chandler MANUAL DIFF REQ NO Normal [facility] Comment on above: Performed By: #### B MP #### [facility] [address] [place] [address] Dr. Carrington Chandler MCH (RBC) [Entitic mass] 29.8 pg Normal 25.9-34.0 [facility] Comment on above: Performed By: #### B MP #### [facility] [address] [place] [address] Dr. Carrington Chandler MCHC (RBC) [Mass/Vol] 33.4 g/dL Normal 29.9-35.2 [facility] Comment on above: Performed By: #### B MP #### [facility] [address] [place] [address] Dr. Carrington Chandler MCV (RBC) [Entitic vol] 89.1 fL Normal 80.0-94.0 [facility] Comment on above: Performed By: #### B MP #### [facility] [address] [place] [address] Dr. Carrington Chandler MONO # 0.5 103/ul Normal 0.3-0.8 [facility] Comment on above: Performed By: #### B MP #### [facility] [address] [place] [address] Dr. Carrington Chandler Monocytes/100 WBC (Bld) 11.0 % Normal 1.7-12.0 [facility] Comment on above: Performed By: #### B MP #### [facility] [address] [place] [address] Dr. Carrington Chandler NEUT # 2.2 103/ul Normal 1.4-6.5 [facility] Comment on above: Performed By: #### B MP #### [facility] [address] [place] [address] Dr. Carrington Chandler Neutrophils/100 WBC (Bld) 51.6 % Normal 43.0-75.0 [facility] Comment on above: Performed By: #### B MP #### [facility] [address] [place] [address] Dr. Carrington Chandler Platelet mean volume (Bld) [Entitic vol] 9.0 fL Critically low 9.5-13.5 [facility] Comment on above: Performed By: #### B MP #### [facility] [address] [address] [address] Carrington Chandler PLT 147 103/ul Critically low 150-450 [facility] Comment on above: Performed By: #### B MP #### [facility] [address] [address] [address] Carrington Chandler RBC 4.13 106/ul Critically low 4.70-6.10 [facility] Comment on above: Performed By: #### B MP #### [facility] [address] [address] [address] Carrington Chandler WBC 4.4 103/ul Normal 4.0-11.0 [facility] Comment on above: Performed By: #### B MP #### [facility] [address] [place] [address] Dr. Carrington Chandler CULTURE SPUTUMon 07-10-2022 CULTURE SPUTUM Culture Observations : NORMAL RESPIRATORY SANDY. Normal [facility] Comment on above: Performed By: #### C MP #### [facility] [address] [address] [address] Carrington Chandler MAGNESIUMon 07-10-2022 Magnesium [Mass/Vol] 2.0 mg/dL Normal 1.8-2.4 [facility] Comment on above: Performed By: #### C MP #### [facility] [address] [address] [address] Carrington Chandler PROF 14(COMP METB)on 022 Albumin [Mass/Vol] 2.8 g/dL Critically low 3.4-5.0 Th [facility] Comment on above: Performed By: #### B MP #### [facility] [address] [place] [address] Dr. Carrington Chandler Albumin/Globulin [Mass ratio] 0.8 {ratio} Normal [facility] Comment on above: Performed By: #### B MP #### [facility] [address] [address] [address] Carrington Chandler ALP [Catalytic activity/Vol] 55 U/L Normal 46-116 [facility] Comment on above: Performed By: #### B MP #### [facility] [address] [place] [address] Dr. Carrington Chandler ALT [Catalytic activity/Vol] 22 U/L Normal 16-63 [facility] Comment on above: Performed By: #### B MP #### [facility] [address] [address] [address] Carrington Chandler Anion gap [Moles/Vol] 10.3 mmol/L Normal [facility] Comment on above: Performed By: #### B MP #### [facility] [address] [address] [address] Carrington Chandler AST [Catalytic activity/Vol] 22 U/L Normal 15-37 [facility] Comment on above: Performed By: #### B MP #### [facility] [address] [place] [address] Dr. Carrington Chandler Bilirubin [Mass/Vol] 0.2 mg/dL Normal 0.2-1.0 [facility] Comment on above: Performed By: #### B MP #### [facility] [address] [place] [address] Dr. Carrington Chandler Calcium [Mass/Vol] 8.0 mg/dL Critically low 8.5-10.1 [facility] Comment on above: Performed By: #### B MP #### [facility] [address] [place] [address] Dr. Carrington Chandler Chloride [Moles/Vol] 105 mmol/L Normal 98-107 [facility] Comment on above: Performed By: #### B MP #### [facility] [address] [address] [address] Carrington Chandler CO2 [Moles/Vol] 28.1 mmol/L Normal 21.0-32.0 [facility] Comment on above: Performed By: #### B MP #### [facility] [address] [place] [address] Dr. Carrington Chandler Creatinine [Mass/Vol] 0.89 mg/dL Normal 0.70-1.30 [facility] Comment on above: Performed By: #### B MP #### [facility] [address] [address] [address] Carrington Chandler EGFR-AF PORTUGUESE >60 Normal >=60 [facility] Comment on above: Performed By: #### B MP #### [facility] [address] [address] [address] Carrington Chandler EGFR-NON AF PORTUGUESE >60 Normal >=60 [facility] Comment on above: Performed By: #### B MP #### [facility] [address] [address] [address] Carrington Chandler Globulin (S) [Mass/Vol] 3.7 g/dL Normal [facility] Comment on above: Performed By: #### B MP #### [facility] [address] [address] [address] Carrington Chandler Glucose [Mass/Vol] 124 mg/dL Critically high 74-106 [facility] Comment on above: Performed By: #### B MP #### [facility] [address] [address] [address] Carrington Chandler Potassium [Moles/Vol] 3.4 mmol/L Critically low 3.5-5.1 [facility] Comment on above: Performed By: #### B MP #### [facility] [address] [address] [address] Carrington Chandler Protein [Mass/Vol] 6.5 g/dL Normal 6.4-8.2 [facility] Comment on above: Performed By: #### B MP #### [facility] [address] [address] [address] Carrington Chandler Sodium [Moles/Vol] 140 mmol/L Normal 136-145 [facility] Comment on above: Performed By: #### B MP #### [facility] [address] [address] [address] Carrington Chandler Urea nitrogen [Mass/Vol] 15.0 mg/dL Normal 7.0-18.0 [facility] Comment on above: Performed By: #### B MP #### [facility] [address] [place] [address] Dr. Carrington Chandler Urea nitrogen/Creatinine [Mass ratio] 16.9 mg/mg Normal [facility] Comment on above: Performed By: #### B MP #### [facility] [address] [place] [address] Dr. Carrington Chnadler CBC AUTO DIFFon 07-09-2022 BASO # 0.0 103/ul Normal 0.0-0.1 [facility] Comment on above: Performed By: #### A MY, CMP, LIPA #### [facility] [address] [place] [address] Dr. Carrington Chandler Basophils/100 WBC (Bld) 0.2 % Normal 0.2-2.0 [facility] Comment on above: Performed By: #### A MY, CMP, LIPA #### [facility] [address] [place] [address] Dr. Carrington Chandler EO # 0.1 103/ul Normal 0.0-0.7 [facility] Comment on above: Performed By: #### A MY, CMP, LIPA #### [facility] [address] [place] [address] Dr. Carrington Chandler Eosinophils/100 WBC (Bld) 1.9 % Normal 0.9-7.0 [facility] Comment on above: Performed By: #### A MY, CMP, LIPA #### [facility] [address] [place] [address] Dr. Carrington Chandler Erythrocyte distribution width (RBC) [Ratio] 12.6 % Normal 11.0-15.0 [facility] Comment on above: Performed By: #### A MY, CMP, LIPA #### [facility] [address] [place] [address] Dr. Carrington Chandler Hematocrit (Bld) [Volume fraction] 38.8 % Critically low 42.0-54.0 [facility] Comment on above: Performed By: #### A MY, CMP, LIPA #### [facility] [address] [place] [address] Dr. Carrington Chandler Hemoglobin (Bld) [Mass/Vol] 12.9 g/dL Critically low 14.0-18.0 [facility] Comment on above: Performed By: #### A MY, CMP, LIPA #### [facility] [address] [place] [address] Dr. Carrington Chandler IG # 0.01 10e3/ul Normal 0.00-0.03 [facility] Comment on above: Performed By: #### A MY, CMP, LIPA #### [facility] [address] [place] [address] Dr. Carrington Chandler IG % 0.2 % Normal 0.0-0.5 [facility] Comment on above: Performed By: #### A MY, CMP, LIPA #### [facility] [address] [place] [address] Dr. Carrington Chandler LYMPH # 1.7 103/ul Normal 1.2-3.8 [facility] Comment on above: Performed By: #### A MY, CMP, LIPA #### [facility] [address] [place] [address] Dr. Carrington Chandler Lymphocytes/100 WBC (Bld) 34.7 % Normal 20.5-60.0 [facility] Comment on above: Performed By: #### A MY, CMP, LIPA #### [facility] [address] [place] [address] Dr. Carrington Chandler MANUAL DIFF REQ NO Normal [facility] Comment on above: Performed By: #### A MY, CMP, LIPA #### [facility] [address] [place] [address] Dr. Carrington Chandler MCH (RBC) [Entitic mass] 29.9 pg Normal 25.9-34.0 [facility] Comment on above: Performed By: #### A MY, CMP, LIPA #### [facility] [address] [place] [address] Dr. Carrington Chandler MCHC (RBC) [Mass/Vol] 33.2 g/dL Normal 29.9-35.2 [facility] Comment on above: Performed By: #### A MY, CMP, LIPA #### [facility] [address] [address] [address] Carrington Chandler MCV (RBC) [Entitic vol] 90.0 fL Normal 80.0-94.0 [facility] Comment on above: Performed By: #### A MY, CMP, LIPA #### [facility] [address] [address] [address] Carrington Chandler MONO # 0.5 103/ul Normal 0.3-0.8 [facility] Comment on above: Performed By: #### A MY, CMP, LIPA #### [facility] [address] [place] [address] Dr. Carrington Chandler Monocytes/100 WBC (Bld) 10.4 % Normal 1.7-12.0 [facility] Comment on above: Performed By: #### A MY, CMP, LIPA #### [facility] [address] [place] [address] Dr. Carrington Chandler NEUT # 2.5 103/ul Normal 1.4-6.5 [facility] Comment on above: Performed By: #### A MY, CMP, LIPA #### [facility] [address] [place] [address] Dr. Carrington Chandler Neutrophils/100 WBC (Bld) 52.6 % Normal 43.0-75.0 [facility] Comment on above: Performed By: #### A MY, CMP, LIPA #### [facility] [address] [place] [address] Dr. Carrington Chandler Platelet mean volume (Bld) [Entitic vol] 9.0 fL Critically low 9.5-13.5 [facility] Comment on above: Performed By: #### A MY, CMP, LIPA #### [facility] [address] [place] [address] Dr. Carrington Chandler PLT 155 103/ul Normal 150-450 [facility] Comment on above: Performed By: #### A MY, CMP, LIPA #### [facility] [address] [place] [address] Dr. Carrington Chandler RBC 4.31 106/ul Critically low 4.70-6.10 [facility] Comment on above: Performed By: #### A MY, CMP, LIPA #### [facility] [address] [address] [address] Carrington Chandler WBC 4.8 103/ul Normal 4.0-11.0 [facility] Comment on above: Performed By: #### A MY, CMP, LIPA #### [facility] [address] [address] [address] Carrington Chandler [facility]on [facility]25 SARS-CoV-2 (COVID-19) RNA CHARLIE+probe Ql (Unsp spec) Not detected Normal NOT DETECTED [facility] Comment on above: Result Comment: When [...] for this test is supported by the [employer] of [employer]'s declaration that [...] used). Performed By: #### C MP #### [facility] [address] [place] [address] Dr. Carrington Chandler ER URINE PROFILEon 2 Bilirubin Ql (U) Negative Normal NEGATIVE [facility] Comment on above: Performed By: #### C MP #### [facility] [address] [place] [address] Dr. Carrington Chandler Clarity (U) CLEAR Normal CLEAR [facility] Comment on above: Performed By: #### C MP #### [facility] [address] [place] [address] Dr. Carrington Chandler Color (U) LT. YELLOW Normal YELLOW [facility] Comment on above: Performed By: #### C MP #### [facility] [address] [address] [address] Carrington MELENDREZ A micrscopic examina tion will be performed if indicated. Normal [facility] Comment on above: Performed By: #### C MP #### [facility] [address] [address] [address] Carrington Chandler Glucose Ql (U) Negative Normal NEGATIVE [facility] Comment on above: Performed By: #### C MP #### [facility] [address] [place] [address] Dr. Carrington Chandler Hemoglobin Ql (U) Negative Normal NEGATIVE [facility] Comment on above: Performed By: #### C MP #### [facility] [address] [place] [address] Dr. Carrington Chandler Ketones Ql (U) Negative Normal NEGATIVE [facility] Comment on above: Performed By: #### C MP #### [facility] [address] [place] [address] Dr. Carrington Chandler LEUKOCYTES Negative Normal NEGATIVE [facility] Comment on above: Performed By: #### C MP #### [facility] [address] [place] [address] Dr. Carrington Chandler Nitrite Ql (U) Negative Normal NEGATIVE [facility] Comment on above: Performed By: #### C MP #### [facility] [address] [place] [address] Dr. Carrington Chandler pH (U) 6.0 [pH] Normal 5-9 [facility] Comment on above: Performed By: #### C MP #### [facility] [address] [address] [address] Carrington Chandler SPEC GRAVITY 1.010 Normal 1.005-<=1. 025 [facility] Comment on above: Performed By: #### C MP #### [facility] [address] [place] [address] Dr. Carrington Chandler UA PROTEIN Negative Normal NEGATIVE/ TRACE [facility] Comment on above: Performed By: #### C MP #### [facility] [address] [address] [address] Carrington Chandler UR MICRO IND NOT INDICATED Normal [facility] Comment on above: Performed By: #### C MP #### [facility] [address] [address] [address] Carrington Chandler Urobilinogen Qn (U) 0.2 {Lars'U}/dL Normal 0.2 - 1. 0 [facility] Comment on above: Performed By: #### C MP #### [facility] [address] [address] [address] Carrington Chandler PROF CHEM 8 (BAS METB)on Anion gap [Moles/Vol] 6.6 mmol/L Normal [facility] Comment on above: Performed By: #### B MP #### [facility] [address] [place] [address] Dr. Carrington Chandler Calcium [Mass/Vol] 8.2 mg/dL Critically low 8.5-10.1 [facility] Comment on above: Performed By: #### B MP #### [facility] [address] [place] [address] Dr. Carrington Chandler Chloride [Moles/Vol] 102 mmol/L Normal 98-107 [facility] Comment on above: Performed By: #### B MP #### [facility] [address] [place] [address] Dr. Carrington Chandler CO2 [Moles/Vol] 31.2 mmol/L Normal 21.0-32.0 [facility] Comment on above: Performed By: #### B MP #### [facility] [address] [place] [address] Dr. Carrington Chandler Creatinine [Mass/Vol] 0.90 mg/dL Normal 0.70-1.30 [facility] Comment on above: Performed By: #### B MP #### [facility] [address] [place] [address] Dr. Carrington Chandler EGFR-AF PORTUGUESE >60 Normal >=60 [facility] Comment on above: Performed By: #### B MP #### [facility] [address] [address] [address] Carrington Chandler EGFR-NON AF PORTUGUESE >60 Normal >=60 [facility] Comment on above: Performed By: #### B MP #### [facility] [address] [address] [address] Carrington Chandler Glucose [Mass/Vol] 100 mg/dL Normal 74-106 [facility] Comment on above: Performed By: #### B MP #### [facility] [address] [address] [address] Carrington Chandler Potassium [Moles/Vol] 3.8 mmol/L Normal 3.5-5.1 [facility] Comment on above: Performed By: #### B MP #### [facility] [address] [place] [address] Dr. Carrington Chandler Sodium [Moles/Vol] 136 mmol/L Normal 136-145 [facility] Comment on above: Performed By: #### B MP #### [facility] [address] [address] [address] Carrington Chandler Urea nitrogen [Mass/Vol] 16.0 mg/dL Normal 7.0-18.0 [facility] Comment on above: Performed By: #### B MP #### [facility] [address] [place] [address] Dr. Carrington Chandler Urea nitrogen/Creatinine [Mass ratio] 17.8 mg/mg Normal [facility] Comment on above: Performed By: #### B MP #### [facility] [address] [address] [address] Carrington Chandler XR CHEST 1 Von [...] TEE LEWIS Date: 2022-07-09 20:51 Normal [facility] AMYLASEon 07-08-2022 Amylase [Catalytic activity/Vol] 40 U/L Normal 25-115 [facility] Comment on above: Performed By: #### A MY, CMP, LIPA #### [facility] [address] [place] [address] Dr. Carrington Chandler CBC AUTO DIFFon 07-08-2022 BASO # 0.0 103/ul Normal 0.0-0.1 [facility] Comment on above: Performed By: #### C BC #### [facility] [address] [place] [address] Dr. Carrington Chandler Basophils/100 WBC (Bld) 0.3 % Normal 0.2-2.0 [facility] Comment on above: Performed By: #### C BC #### [facility] [address] [place] [address] Dr. Carrington Chandler EO # 0.1 103/ul Normal 0.0-0.7 [facility] Comment on above: Performed By: #### C BC #### [facility] [address] [place] [address] Dr. Carrington Chandler Eosinophils/100 WBC (Bld) 1.2 % Normal 0.9-7.0 [facility] Comment on above: Performed By: #### C BC #### [facility] [address] [place] [address] Dr. Carrington Chandler Erythrocyte distribution width (RBC) [Ratio] 12.9 % Normal 11.0-15.0 [facility] Comment on above: Performed By: #### C BC #### [facility] [address] [place] [address] Dr. Carrington Chandler Hematocrit (Bld) [Volume fraction] 43.2 % Normal 42.0-54.0 [facility] Comment on above: Performed By: #### C BC #### [facility] [address] [place] [address] Dr. Carrington Chandler Hemoglobin (Bld) [Mass/Vol] 14.4 g/dL Normal 14.0-18.0 [facility] Comment on above: Performed By: #### C BC #### [facility] [address] [place] [address] Dr. Carrington Chandler IG # 0.02 10e3/ul Normal 0.00-0.03 [facility] Comment on above: Performed By: #### C BC #### [facility] [address] [place] [address] Dr. Carrington Chandler IG % 0.3 % Normal 0.0-0.5 [facility] Comment on above: Performed By: #### C BC #### [facility] [address] [place] [address] Dr. Carrington Chandler LYMPH # 1.6 103/ul Normal 1.2-3.8 [facility] Comment on above: Performed By: #### C BC #### [facility] [address] [place] [address] Dr. Carrington Chandler Lymphocytes/100 WBC (Bld) 24.0 % Normal 20.5-60.0 [facility] Comment on above: Performed By: #### C BC #### [facility] [address] [place] [address] Dr. Carrington Chandler MANUAL DIFF REQ NO Normal [facility] Comment on above: Performed By: #### C BC #### [facility] [address] [place] [address] Dr. Carrington Chandler MCH (RBC) [Entitic mass] 30.2 pg Normal 25.9-34.0 [facility] Comment on above: Performed By: #### C BC #### [facility] [address] [place] [address] Dr. Carrington Chandler MCHC (RBC) [Mass/Vol] 33.3 g/dL Normal 29.9-35.2 [facility] Comment on above: Performed By: #### C BC #### [facility] [address] [place] [address] Dr. Carrington Chandler MCV (RBC) [Entitic vol] 90.6 fL Normal 80.0-94.0 [facility] Comment on above: Performed By: #### C BC #### [facility] [address] [place], [place] [id number] Dr. Carrington Chandler MONO # 0.6 103/ul Normal 0.3-0.8 [facility] Comment on above: Performed By: #### C BC #### [facility] [address] [place] [address] Dr. Carrington Chandler Monocytes/100 WBC (Bld) 9.4 % Normal 1.7-12.0 [facility] Comment on above: Performed By: #### C BC #### [facility] [address] [place] [address] Dr. Carrington Chandler NEUT # 4.4 103/ul Normal 1.4-6.5 [facility] Comment on above: Performed By: #### C BC #### [facility] [address] [place] [address] Dr. Carrington Chandler Neutrophils/100 WBC (Bld) 64.8 % Normal 43.0-75.0 [facility] Comment on above: Performed By: #### C BC #### [facility] [address] [place] [address] Dr. Carrington Chandler Platelet mean volume (Bld) [Entitic vol] 9.5 fL Normal 9.5-13.5 [facility] Comment on above: Performed By: #### C BC #### [facility] [address] [place] [address] Dr. Carrington Chandler PLT 174 103/ul Normal 150-450 [facility] Comment on above: Performed By: #### C BC #### [facility] [address] [place] [address] Dr. Carrington Chandler RBC 4.77 106/ul Normal 4.70-6.10 [facility] Comment on above: Performed By: #### C BC #### [facility] [address] [place] [address] Dr. Carrington Chandler WBC 6.7 103/ul Normal 4.0-11.0 [facility] Comment on above: Performed By: #### C BC #### [facility] [address] [place] [address] Dr. Carrington Chandler Covid-19 PCR ([facility])on 06-25 SARS-CoV-2 (COVID-19) RNA CHARLIE+probe Ql (Unsp spec) Not detected Normal NOT DETECTED [facility] Comment on above: Result Comment: When [...] for this test is supported by the [employer]'s declaration that [...] used). Performed By: #### B MP #### [facility] [address] [place] [address] Dr. Carrington Chandler INFLUENZA A AND B AGon 07-08 [facility] SEE BELOW Normal [facility] Comment on above: Result Comment: Nega tive for Flu A protein angiten. Infection due to Flu A cannot be ruled out. Flu A angiten in the sample may be below the detection limit of the test. Performed By: #### B MP #### [facility] [address] [place] [address] Dr. Carrington Chandler [facility] SEE BELOW Normal [facility] Comment on above: Result Comment: Nega tive for Flu B protein antigen. Infection due to Flu B cannot be ruled out. Flu B antigen in the sample may be below the detection limit of the test. Performed By: #### B MP #### [facility] [address] [place] [address] Dr. Carrington Chandler INFLUENZA A AG Negative Normal NEGATIVE SEE COMMENT [facility] Comment on above: Performed By: #### B MP #### [facility] [address] [place] [address] Dr. Carrington Chandler INFLUENZA B AG Negative Normal NEGATIVE SEE COMMENT [facility] Comment on above: Performed By: #### B MP #### [facility] [address] [address] [address] Carrington Chandler INTERNAL CONTROLS Within Normal Limits Normal Wi thin Normal Limits [facility] Comment on above: Performed By: #### B MP #### [facility] [address] [address] [address] Carrington Chandler LIPASEon 07-08-2022 Lipase [Catalytic activity/Vol] 195.0 U/L Normal 73.0-393.0 [facility] Comment on above: Performed By: #### A MY, CMP, LIPA #### [facility] [address] [place] [address] Dr. Carrington Chandler PROF 14(COMP METB)on Albumin [Mass/Vol] 3.4 g/dL Normal 3.4-5.0 [facility] Comment on above: Performed By: #### A MY, CMP, LIPA #### [facility] [address] [address] [address] Carrington Chandler Albumin/Globulin [Mass ratio] 0.8 {ratio} Normal [facility] Comment on above: Performed By: #### A MY, CMP, LIPA #### [facility] [address] [place] [address] Dr. Carrington Chandler ALP [Catalytic activity/Vol] 61 U/L Normal 46-116 [facility] Comment on above: Performed By: #### A MY, CMP, LIPA #### [facility] [address] [address] [address] Carrington Chandler ALT [Catalytic activity/Vol] 26 U/L Normal 16-63 [facility] Comment on above: Performed By: #### A MY, CMP, LIPA #### [facility] [address] [place] [address] Dr. Carrington Chandler Anion gap [Moles/Vol] 11.0 mmol/L Normal [facility] Comment on above: Performed By: #### A MY, CMP, LIPA #### [facility] [address] [address] [address] Carrington Chandler AST [Catalytic activity/Vol] 30 U/L Normal 15-37 [facility] Comment on above: Performed By: #### A MY, CMP, LIPA #### [facility] [address] [address] [address] Carrington Chandler Bilirubin [Mass/Vol] 0.3 mg/dL Normal 0.2-1.0 [facility] Comment on above: Performed By: #### A MY, CMP, LIPA #### [facility] [address] [address] [address] Carrington Chandler Calcium [Mass/Vol] 8.4 mg/dL Critically low 8.5-10.1 Th [facility] Comment on above: Performed By: #### A MY, CMP, LIPA #### [facility] [address] [address] [address] Carrington Chandler Chloride [Moles/Vol] 102 mmol/L Normal 98-107 [facility] Comment on above: Performed By: #### A MY, CMP, LIPA #### [facility] [address] [address] [address] Carrington Chandler CO2 [Moles/Vol] 28.1 mmol/L Normal 21.0-32.0 [facility] Comment on above: Performed By: #### A MY, CMP, LIPA #### [facility] [address] [address] [address] Carrington Chandler Creatinine [Mass/Vol] 0.99 mg/dL Normal 0.70-1.30 [facility] Comment on above: Performed By: #### A MY, CMP, LIPA #### [facility] [address] [address] [address] Carrington Chandler EGFR-AF PORTUGUESE >60 Normal >=60 [facility] Comment on above: Performed By: #### A MY, CMP, LIPA #### [facility] [address] [address] [address] Carrington Chandler EGFR-NON AF PORTUGUESE >60 Normal >=60 [facility] Comment on above: Performed By: #### A MY, CMP, LIPA #### [facility] [address] [address] [address] Carrington Chandler Globulin (S) [Mass/Vol] 4.3 g/dL Normal [facility] Comment on above: Performed By: #### A MY, CMP, LIPA #### [facility] [address] [address] [address] Carrington Chandler Glucose [Mass/Vol] 107 mg/dL Critically high 74-106 [facility] Comment on above: Performed By: #### A MY, CMP, LIPA #### [facility] [address] [address] [address] Carrington Chandler Potassium [Moles/Vol] 4.1 mmol/L Normal 3.5-5.1 [facility] Comment on above: Performed By: #### A MY, CMP, LIPA #### [facility] Laboratory [address] [place] [address] Dr. Carrington Chandler Protein [Mass/Vol] 7.7 g/dL Normal 6.4-8.2 [facility] Comment on above: Performed By: #### A MY, CMP, LIPA #### [facility] [address] [place] [address] Dr. Carrington Chandler Sodium [Moles/Vol] 137 mmol/L Normal 136-145 [facility] Comment on above: Performed By: #### A MY, CMP, LIPA #### [facility] [address] [address] [address] Carrington Chandler Urea nitrogen [Mass/Vol] 23.0 mg/dL Critically high 7.0-18.0 [facility] Comment on above: Performed By: #### A MY, CMP, LIPA #### [facility] [address] [place] [address] Dr. Carrington Chandler Urea nitrogen/Creatinine [Mass ratio] 23.2 mg/mg Normal [facility] Comment on above: Performed By: #### A MY, CMP, LIPA #### [facility] [address] [place] [address] Dr. Carrington Chandler CBC AUTO DIFFon 07-03-2022 BASO # 0.0 103/ul Normal 0.0-0.1 [facility] Comment on above: Performed By: #### C MP #### [facility] [address] [address] [address] Carrington Chandler Basophils/100 WBC (Bld) 0.5 % Normal 0.2-2.0 [facility] Comment on above: Performed By: #### C MP #### [facility] [address] [place] [address] Dr. Carrington Chandler EO # 0.3 103/ul Normal 0.0-0.7 [facility] Comment on above: Performed By: #### C MP #### [facility] [address] [place] [address] Dr. Carrington Chandler Eosinophils/100 WBC (Bld) 4.7 % Normal 0.9-7.0 [facility] Comment on above: Performed By: #### C MP #### [facility] [address] [place] [address] Dr. Carrington Chandler Erythrocyte distribution width (RBC) [Ratio] 12.7 % Normal 11.0-15.0 [facility] Comment on above: Performed By: #### C MP #### [facility] [address] [place] [address] Dr. Carrington Chandler Hematocrit (Bld) [Volume fraction] 38.8 % Critically low 42.0-54.0 [facility] Comment on above: Performed By: #### C MP #### [facility] [address] [place] [address] Dr. Carrington Chandler Hemoglobin (Bld) [Mass/Vol] 13.2 g/dL Critically low 14.0-18.0 [facility] Comment on above: Performed By: #### C MP #### [facility] [address] [place] [address] Dr. Carrington Chandler IG # 0.01 10e3/ul Normal 0.00-0.03 [facility] Comment on above: Performed By: #### C MP #### [facility] [address] [place] [address] Dr. Carrington Chandler IG % 0.2 % Normal 0.0-0.5 [facility] Comment on above: Performed By: #### C MP #### [facility] [address] [place] [address] Dr. Carrington Chandler LYMPH # 1.4 103/ul Normal 1.2-3.8 [facility] Comment on above: Performed By: #### C MP #### [facility] [address] [place] [address] Dr. Carrington Chandler Lymphocytes/100 WBC (Bld) 25.2 % Normal 20.5-60.0 [facility] Comment on above: Performed By: #### C MP #### [facility] [address] [place] [address] Dr. Carrington Chandler MANUAL DIFF REQ NO Normal [facility] Comment on above: Performed By: #### C MP #### [facility] [address] [place] [address] Dr. Carrington Chandler MCH (RBC) [Entitic mass] 30.3 pg Normal 25.9-34.0 [facility] Comment on above: Performed By: #### C MP #### [facility] [address] [place] [address] Dr. Carrington Chandler MCHC (RBC) [Mass/Vol] 34.0 g/dL Normal 29.9-35.2 [facility] Comment on above: Performed By: #### C MP #### [facility] [address] [place] [address] Dr. Carrington Chandler MCV (RBC) [Entitic vol] 89.2 fL Normal 80.0-94.0 [facility] Comment on above: Performed By: #### C MP #### [facility] [address] [place] [address] Dr. Carrington Chandler MONO # 0.6 103/ul Normal 0.3-0.8 [facility] Comment on above: Performed By: #### C MP #### [facility] [address] [place] [address] Dr. Carrington Chandler Monocytes/100 WBC (Bld) 10.2 % Normal 1.7-12.0 [facility] Comment on above: Performed By: #### C MP #### [facility] [address] [place] [address] Dr. Carrington Chandler NEUT # 3.3 103/ul Normal 1.4-6.5 [facility] Comment on above: Performed By: #### C MP #### [facility] [address] [place] [address] Dr. Carrington Chandler Neutrophils/100 WBC (Bld) 59.2 % Normal 43.0-75.0 [facility] Comment on above: Performed By: #### C MP #### [facility] [address] [place] [address] Dr. Carrington Chandler Platelet mean volume (Bld) [Entitic vol] 9.1 fL Critically low 9.5-13.5 [facility] Comment on above: Performed By: #### C MP #### [facility] [address] [place] [address] Dr. Carrington Chandler PLT 199 103/ul Normal 150-450 [facility] Comment on above: Performed By: #### C MP #### [facility] [address] [place] [address] Dr. Carrington Chandler RBC 4.35 106/ul Critically low 4.70-6.10 [facility] Comment on above: Performed By: #### C MP #### [facility] [address] [place] [address] Dr. Carrington Chandler WBC 5.5 103/ul Normal 4.0-11.0 [facility] Comment on above: Performed By: #### C MP #### [facility] [address] [place] [address] Dr. Carrington Chandler Covid-19 PCR ([facility])on SARS-CoV-2 (COVID-19) RNA CHARLIE+probe Ql (Unsp spec) Not detected Normal NOT DETECTED [facility] Comment on above: Result Comment: When [...] for this test is supported by the [place] [employer]'s declaration that [...] used). Performed By: #### B MP #### [facility] [address] [place] [address] Dr. Carrington Chandler PROF 14(COMP METB)on 022 Albumin [Mass/Vol] 3.8 g/dL Normal 3.4-5.0 [facility] Comment on above: Performed By: #### C MP #### [facility] [address] [place] [address] Dr. Carrington Chandler Albumin/Globulin [Mass ratio] 1.0 {ratio} Normal [facility] Comment on above: Performed By: #### C MP #### [facility] [address] [place] [address] Dr. Carrington Chandler ALP [Catalytic activity/Vol] 69 U/L Normal 46-116 [facility] Comment on above: Performed By: #### C MP #### [facility] [address] [place] [address] Dr. Carrington Chandler ALT [Catalytic activity/Vol] 18 U/L Normal 16-63 [facility] Comment on above: Performed By: #### C MP #### [facility] [address] [place] [address] Dr. Carrington Chandler Anion gap [Moles/Vol] 13.3 mmol/L Normal [facility] Comment on above: Performed By: #### C MP #### [facility] [address] [address] [address] Carrington Chandler AST [Catalytic activity/Vol] 19 U/L Normal 15-37 [facility] Comment on above: Performed By: #### C MP #### [facility] [address] [address] [address] Carrington Chandler Bilirubin [Mass/Vol] 0.3 mg/dL Normal 0.2-1.0 [facility] Comment on above: Performed By: #### C MP #### [facility] [address] [address] [address] Carrington Chandler Calcium [Mass/Vol] 9.0 mg/dL Normal 8.5-10.1 [facility] Comment on above: Performed By: #### C MP #### [facility] [address] [place] [address] Dr. Carrington Chandler Chloride [Moles/Vol] 101 mmol/L Normal 98-107 [facility] Comment on above: Performed By: #### C MP #### [facility] [address] [place] [address] Dr. Carrington Chandler CO2 [Moles/Vol] 26.7 mmol/L Normal 21.0-32.0 [facility] Comment on above: Performed By: #### C MP #### [facility] [address] [place] [address] Dr. Carrington Chandler Creatinine [Mass/Vol] 1.06 mg/dL Normal 0.70-1.30 [facility] Comment on above: Performed By: #### C MP #### [facility] [address] [place] [address] Dr. Carrington Chandler EGFR-AF PORTUGUESE >60 Normal >=60 [facility] Comment on above: Performed By: #### C MP #### [facility] [address] [place] [address] Dr. Carrington Chandler EGFR-NON AF PORTUGUESE >60 Normal >=60 [facility] Comment on above: Performed By: #### C MP #### [facility] [address] [place] [address] Dr. Carrington Chandler Globulin (S) [Mass/Vol] 3.8 g/dL Normal [facility] Comment on above: Performed By: #### C MP #### [facility] [address] [address] [address] Carrington Chandler Glucose [Mass/Vol] 98 mg/dL Normal 74-106 [facility] Comment on above: Performed By: #### C MP #### [facility] [address] [address] [address] Carrington Chandler Potassium [Moles/Vol] 4.0 mmol/L Normal 3.5-5.1 [facility] Comment on above: Performed By: #### C MP #### [facility] [address] [address] [address] Carrington Chandler Protein [Mass/Vol] 7.6 g/dL Normal 6.4-8.2 [facility] Comment on above: Performed By: #### C MP #### [facility] [address] [address] [address] Carrnigton Chandler Sodium [Moles/Vol] 137 mmol/L Normal 136-145 [facility] Comment on above: Performed By: #### C MP #### [facility] [address] [address] [address] Carrington Chandler Urea nitrogen [Mass/Vol] 21.0 mg/dL Critically high 7.0-18.0 [facility] Comment on above: Performed By: #### C MP #### [facility] [address] [address] [address] Carrington Chandler Urea nitrogen/Creatinine [Mass ratio] 19.8 mg/mg Normal [facility] Comment on above: Performed By: #### C MP #### [facility] [address] [address] [address] Carrington Chandler XR CHEST 1 Von [...] CYNTHIA VASQUEZ Date: 2022-07-03 21:16 Normal [facility] CBC AUTO DIFFon 02-03-2022 BASO # 0.0 103/ul Normal 0.0-0.1 [facility] Comment on above: Performed By: #### C BC #### [facility] [address] [place] [address] Dr. Carrington Chandler Basophils/100 WBC (Bld) 0.3 % Normal 0.2-2.0 [facility] Comment on above: Performed By: #### C BC #### [facility] [address] [place] [address] Dr. Carrington Chandler EO # 0.1 103/ul Normal 0.0-0.7 [facility] Comment on above: Performed By: #### C BC #### [facility] [address] [place] [address] Dr. Carrington Chandler Eosinophils/100 WBC (Bld) 0.9 % Normal 0.9-7.0 [facility] Comment on above: Performed By: #### C BC #### [facility] [address] [place] [address] Dr. Carrington Chandler Erythrocyte distribution width (RBC) [Ratio] 13.9 % Normal 11.0-15.0 [facility] Comment on above: Performed By: #### C BC #### [facility] [address] [place] [address] Dr. Carrington Chandler Hematocrit (Bld) [Volume fraction] 40.4 % Critically low 42.0-54.0 [facility] Comment on above: Performed By: #### C BC #### [facility] [address] [place] [address] Dr. Carrington Chandler Hemoglobin (Bld) [Mass/Vol] 13.4 g/dL Critically low 14.0-18.0 [facility] Comment on above: Performed By: #### C BC #### [facility] [address] [place] [address] Dr. Carrington Chandler IG # 0.03 10e3/ul Normal 0.00-0.03 [facility] Comment on above: Performed By: #### C BC #### [facility] [address] [place] [address] Dr. Carrington Chandler IG % 0.3 % Normal 0.0-0.5 [facility] Comment on above: Performed By: #### C BC #### [facility] [address] [place] [address] Dr. Carrington Chandler LYMPH # 1.5 103/ul Normal 1.2-3.8 [facility] Comment on above: Performed By: #### C BC #### [facility] [address] [place] [address] Dr. Carrington Chandler Lymphocytes/100 WBC (Bld) 12.3 % Critically low 20.5-60.0 [facility] Comment on above: Performed By: #### C BC #### [facility] [address] [place] [address] Dr. Carrington Chandler MANUAL DIFF REQ NO Normal [facility] Comment on above: Performed By: #### C BC #### [facility] [address] [place] [address] Dr. Carrington Chandler MCH (RBC) [Entitic mass] 30.0 pg Normal 25.9-34.0 [facility] Comment on above: Performed By: #### C BC #### [facility] [address] [place] [address] Dr. Carrington Chandler MCHC (RBC) [Mass/Vol] 33.2 g/dL Normal 29.9-35.2 [facility] Comment on above: Performed By: #### C BC #### [facility] [address] [place] [address] Dr. Carrington Chandler MCV (RBC) [Entitic vol] 90.6 fL Normal 80.0-94.0 [facility] Comment on above: Performed By: #### C BC #### [facility] [address] [place] [address] Dr. Carrington Chandler MONO # 1.0 103/ul Critically high 0.3-0.8 [facility] Comment on above: Performed By: #### C BC #### [facility] [address] [place] [address] Dr. Carrington Chandler Monocytes/100 WBC (Bld) 8.5 % Normal 1.7-12.0 [facility] Comment on above: Performed By: #### C BC #### [facility] [address] [place] [address] Dr. Carrington Chandler NEUT # 9.2 103/ul Critically high 1.4-6.5 [facility] Comment on above: Performed By: #### C BC #### [facility] [address] [place] [address] Dr. Carrington Chandler Neutrophils/100 WBC (Bld) 77.7 % Critically high 43.0-75.0 [facility] Comment on above: Performed By: #### C BC #### [facility] [address] [place] [address] Dr. Carrington Chandler Platelet mean volume (Bld) [Entitic vol] 9.5 fL Normal 9.5-13.5 [facility] Comment on above: Performed By: #### C BC #### [facility] [address] [place] [address] Dr. Carrington Chandler PLT 204 103/ul Normal 150-450 [facility] Comment on above: Performed By: #### C BC #### [facility] [address] [place] [address] Dr. Carrington Chandler RBC 4.46 106/ul Critically low 4.70-6.10 [facility] Comment on above: Performed By: #### C BC #### [facility] [address] [place] [address] Dr. Carrington Chandler WBC 11.9 103/ul Critically high 4.0-11.0 [facility] Comment on above: Performed By: #### C BC #### [facility] [address] [place] [address] Dr. Carrington Chandler Covid-19 PCR ([facility])on 01-23 SARS-CoV-2 (COVID-19) RNA CHARLIE+probe Ql (Unsp spec) Not detected Normal NOT DETECTED [facility] Comment on above: Result Comment: When [...] for this test is supported by the [place] [employer]'s declaration that [...] used). Performed By: #### C VDTB #### [facility] [address] [place] [address] Dr. Carrington Chandler PROF 14(COMP METB)on 022 Albumin [Mass/Vol] 3.7 g/dL Normal 3.4-5.0 [facility] Comment on above: Performed By: #### C MP #### [facility] [address] [place] [address] Dr. Carrington Chandler Albumin/Globulin [Mass ratio] 0.9 {ratio} Normal [facility] Comment on above: Performed By: #### C MP #### [facility] [address] [place] [address] [address] [address] Carrington Chandler ALP [Catalytic activity/Vol] 62 U/L Normal 46-116 [facility] Comment on above: Performed By: #### C MP #### [facility] [address] [address] [address] Carrington Chandler ALT [Catalytic activity/Vol] 21 U/L Normal 16-63 [facility] Comment on above: Performed By: #### C MP #### [facility] [address] [address] [address] Carrington Chandler Anion gap [Moles/Vol] 12.3 mmol/L Normal [facility] Comment on above: Performed By: #### C MP #### [facility] [address] [address] [address] Carrington Chandler AST [Catalytic activity/Vol] 13 U/L Critically low 15-37 [facility] Comment on above: Performed By: #### C MP #### [facility] [address] [place] [address] Dr. Carrington Chandler Bilirubin [Mass/Vol] 0.5 mg/dL Normal 0.2-1.0 [facility] Comment on above: Performed By: #### C MP #### [facility] [address] [place] [address] Dr. Carrington Chandler Calcium [Mass/Vol] 9.1 mg/dL Normal 8.5-10.1 [facility] Comment on above: Performed By: #### C MP #### [facility] [address] [address] [address] Carrington Chandler Chloride [Moles/Vol] 102 mmol/L Normal 98-107 [facility] Comment on above: Performed By: #### C MP #### [facility] [address] [address] [address] Carrington Chandler CO2 [Moles/Vol] 24.9 mmol/L Normal 21.0-32.0 [facility] Comment on above: Performed By: #### C MP #### [facility] [address] [address] [address] Carrington Chandler Creatinine [Mass/Vol] 1.36 mg/dL Critically high 0.70-1.30 [facility] Comment on above: Performed By: #### C MP #### [facility] [address] [address] [address] Carrington Chandler EGFR-AF PORTUGUESE >60 Normal >=60 [facility] Comment on above: Performed By: #### C MP #### [facility] [address] [address] [address] Carrington Chandler EGFR-NON AF [place]UES[place] 53 mL/min/1.73m2 Critically low >=60 [facility] Comment on above: Performed By: #### C MP #### [facility] [address] [address] [address] Carrington Chandler Globulin (S) [Mass/Vol] 3.9 g/dL Normal [facility] Comment on above: Performed By: #### C MP #### [facility] [address] [address] [address] Carrington Chandler Glucose [Mass/Vol] 138 mg/dL Critically high 74-106 [facility] Comment on above: Performed By: #### C MP #### [facility] [address] [address] [address] Carrington Chandler Potassium [Moles/Vol] 4.2 mmol/L Normal 3.5-5.1 [facility] Comment on above: Performed By: #### C MP #### [facility] [address] [address] [address] Carrington Chandler Protein [Mass/Vol] 7.6 g/dL Normal 6.4-8.2 [facility] Comment on above: Performed By: #### C MP #### [facility] [address] [address] [address] Carrington Cahndler Sodium [Moles/Vol] 135 mmol/L Critically low 136-145 [facility] Comment on above: Performed By: #### C MP #### [facility] [address] [address] [address] Carrington Chandler Urea nitrogen [Mass/Vol] 24.0 mg/dL Critically high 7.0-18.0 [facility] Comment on above: Performed By: #### C MP #### [facility] [address] [address] [address] Carrington Chandler Urea nitrogen/Creatinine [Mass ratio] 17.6 mg/mg Normal [facility] Comment on above: Performed By: #### C #### [facility] [id number] Carrington Chandler XR CHEST 1 Von [...] MARX Date: 2022-02-03 02:09 Normal [facility] Vital Signs Date Time Vital Sign Value Performing Clinician Facility 09-14-2023 09:13-0500 Body height 170.2 cm Alok Webber DO Work Phone: [facility] 09-14-2023 09:13-0500 Body mass index (BMI) [Ratio] 36.81 kg/m2 Alok Webber DO Work Phone: [facility] 09-14-2023 09:13-0500 Body weight 106.59 kg Alok Webber DO Work Phone: [facility] 09-14-2023 09:13-0500 Diastolic blood pressure 70 mm[Hg] Alok Webber DO Work Phone: [facility] 09-14-2023 09:13-0500 Heart rate 72 /min Alok Webber DO Work Phone: [facility] 09-14-2023 09:13-0500 Systolic blood pressure 118 mm[Hg] Alok Webber Work Phone: [facility] 08-06-2023 13:30-0500 Body height 171.45 cm Brock Modi Other [facility] Other 08-06-2023 13:30-0500 Body mass index (BMI) [Ratio] 35.95 kg/m2 Brock Modi Other [facility] Other 08-06-2023 13:30-0500 Body weight 105.69 kg Brock Modi Other [facility] Other 08-06-2023 13:30-0500 Diastolic blood pressure 66 mm[Hg] Brock Modi Other [facility] Other 08-06-2023 13:30-0500 SaO2% (BldA) [Mass fraction] 95 % Brock Modi Other [facility] Other 08-06-2023 13:30-0500 Systolic blood pressure 108 mm[Hg] Brock Modi Other [facility] Other 08-05-2023 14:23-0500 Diastolic blood pressure 76 mm[Hg] Christopher Sewell MD Work Phone: [facility] 08-05-2023 14:23-0500 Heart rate 70 /min Christopher Sewell MD Work Phone: [facility] 08-05-2023 14:23-0500 Systolic blood pressure 108 mm[Hg] Christopher Sewell MD Work Phone: [facility] 08-05-2023 14:22-0500 Body height 170.2 cm Christopher Sewell MD Work Phone: [facility] 08-05-2023 14:22-0500 Body mass index (BMI) [Ratio] 36.43 kg/m2 Christopher Sewell MD Work Phone: [facility] 08-05-2023 14:22-0500 Body weight 105.51 kg Christopher Sewell MD Work Phone: [facility] 08-05-2023 14:22-0500 Respiratory rate 18 /min Christopher Sewell MD Work Phone: [facility] 06-24-2023 11:00-0500 Body height 171.45 cm Brock Modi Other [facility] Other 06-24-2023 11:00-0500 Body mass index (BMI) [Ratio] 34.56 kg/m2 Brock Modi Other [facility] Other 06-24-2023 11:00-0500 Body temperature 98.1 [degF] Brock Modi Other [facility] Other 06-24-2023 11:00-0500 Body weight 101.61 kg Brock Modi Other [employer] Other 06-24-2023 11:00-0500 Diastolic blood pressure 67 mm[Hg] Brock Modi Other [employer] Other 06-24-2023 11:00-0500 SaO2% (BldA) [Mass fraction] 95 % Brock Modi Other [employer] Other 06-24-2023 11:00-0500 Systolic blood pressure 109 mm[Hg] Brock Modi Other [employer] Other 03-16-2023 11:30-0400 Body height 171.45 cm Brock Modi Other [employer] Other 03-16-2023 11:30-0400 Body mass index (BMI) [Ratio] 33.48 kg/m2 Brock Modi Other [employer] Other 03-16-2023 11:30-0400 Body weight 98.43 kg Brock Modi Other [employer] Other 03-16-2023 11:30-0400 Diastolic blood pressure 67 mm[Hg] Brock Modi Other [employer] Other 03-16-2023 11:30-0400 SaO2% (BldA) [Mass fraction] 93 % Brock Modi Other [employer] Other 03-16-2023 11:30-0400 Systolic blood pressure 114 mm[Hg] Brock Modi Other [employer] Other 02-04-2023 13:30-0400 Body height 171.45 cm Brock Modi Other [employer] Other 02-04-2023 13:30-0400 Body mass index (BMI) [Ratio] 33.64 kg/m2 Brock Modi Other [employer] Other 02-04-2023 13:30-0400 Body weight 98.88 kg Brock Modi Other [employer] Other 02-04-2023 13:30-0400 Diastolic blood pressure 67 mm[Hg] Brock Modi Other [employer] Other 02-04-2023 13:30-0400 SaO2% (BldA) [Mass fraction] 96 % Brock Modi Other [employer] Other 02-04-2023 13:30-0400 Systolic blood pressure 117 mm[Hg] Brock Modi Other [facility] [employer] Other 12-24-2022 14:08-0400 Body height 167.64 cm Brock Modi Work Phone: [facility] [facility] DO Work Phone: 12-24-2022 14:08-0400 Body mass index (BMI) [Ratio] 35.02 kg/m2 Brock Modi Work Phone: [facility] 250 DO Work Phone: 12-24-2022 14:08-0400 Body surface area Derived from formula 2.07 m2 Brock Modi Work Phone: [facility] [employer] 250 DO Work Phone: 12-24-2022 14:08-0400 Body weight 98.43 kg Brock Modi Work Phone: [facility] 250 DO Work Phone: 12-24-2022 14:08-0400 Diastolic blood pressure 80 mm[Hg] Brock Modi Work Phone: [facility] 250 DO Work Phone: 12-24-2022 14:08-0400 Heart rate 115 /min Brock Modi Work Phone: [facility] 250 DO Work Phone: 12-24-2022 14:08-0400 Systolic blood pressure 124 mm[Hg] Brock Modi Work Phone: [facility] 250 DO Work Phone: 11-27-2022 11:00-0400 Body height 171.45 cm Wagner Marrufo Other [facility] [employer] Other 11-27-2022 11:00-0400 Body mass index (BMI) [Ratio] 33.48 kg/m2 Wagner Marrufo Other [employer] Other 11-27-2022 11:00-0400 Body weight 98.43 kg Wagner Marrufo Other [employer] Other 11-12-2022 12:45-0400 Body height 171.45 cm Brock Modi Other [employer] Other 11-12-2022 12:45-0400 Body mass index (BMI) [Ratio] 33.48 kg/m2 Brock Modi Other [employer] Other 11-12-2022 12:45-0400 Body weight 98.43 kg Brock Modi Other [employer] Other 11-12-2022 12:45-0400 Diastolic blood pressure 78 mm[Hg] Brock Modi Other [employer] Other 11-12-2022 12:45-0400 SaO2% (BldA) [Mass fraction] 92 % Brock Modi Other [employer] Other 11-12-2022 12:45-0400 Systolic blood pressure 122 mm[Hg] Brock Modi Other [employer] Other 10-21-2022 15:18-0400 Body height 167.64 cm Brock Modi Work Phone: [employer] [employer] 250 DO Work Phone: 10-21-2022 15:18-0400 Body mass index (BMI) [Ratio] 35.51 kg/m2 Brock Modi Work Phone: [employer] [employer] 250 DO Work Phone: 10-21-2022 15:18-0400 Body surface area Derived from formula 2.08 m2 Brock Modi Work Phone: [facility] [employer] 250 DO Work Phone: 10-21-2022 15:18-0400 Body weight 99.79 kg Brock Modi Work Phone: [facility] [employer] 250 DO Work Phone: 10-21-2022 15:18-0400 Diastolic blood pressure 70 mm[Hg] Brock Modi Work Phone: [facility] [employer] 250 DO Work Phone: 10-21-2022 15:18-0400 Heart rate 84 /min Brock Modi Work Phone: [facility] [place] 250 DO Work Phone: 10-21-2022 15:18-0400 Systolic blood pressure 126 mm[Hg] Brock Modi Work Phone: [facility] [place] 250 DO Work Phone: 10-15-2022 11:15-0400 Body height 171.45 cm Brock Modi Other [employer] Other 10-15-2022 11:15-0400 Body mass index (BMI) [Ratio] 33.33 kg/m2 Brock Modi Other [employer] Other 10-15-2022 11:15-0400 Body weight 97.98 kg Brock Modi Other [employer] Other 10-15-2022 11:15-0400 Diastolic blood pressure 84 mm[Hg] Brock Modi Other [employer] Other 10-15-2022 11:15-0400 SaO2% (BldA) [Mass fraction] 94 % Brock Modi Other [employer] Other 10-15-2022 11:15-0400 Systolic blood pressure 122 mm[Hg] Brock Mdoi Other [facility] [employer] Other 10-13-2022 11:57-0400 Body temperature 97.4 [degF] MD Brock Modi Work Phone: [facility] 10-13-2022 11:57-0400 Diastolic blood pressure 85 mm[Hg] MD Brock Modi Work Phone: [facility] 10-13-2022 11:57-0400 Heart rate 107 /min MD Brock Modi Work Phone: [facility] 10-13-2022 11:57-0400 Inhaled oxygen flow rate 2 L/min MD Brock Modi Work Phone: [facility] 10-13-2022 11:57-0400 Respiratory rate 17 /min MD Brock Modi Work Phone: [facility] 10-13-2022 11:57-0400 SaO2% (BldA) [Mass fraction] 97 % MD Brock Modi Work Phone: [facility] 10-13-2022 11:57-0400 Systolic blood pressure 125 mm[Hg] MD Brock Modi Work Phone: [facility] 10-13-2022 04:32-0400 Body weight 97.52 kg MD Brock Modi Work Phone: [facility] 10-10-2022 08:46-0400 65 1 Brock Modi Work Phone: [facility] 250 DO Work Phone: Comment on above: [id number] 10-10-2022 04:57-0400 Body height 170.18 cm MD Brock Modi Work Phone: [facility] 09-09-2022 14:30-0500 Body height 171.45 cm Wagner Marrufo Other [employer] Other 09-09-2022 14:30-0500 Body mass index (BMI) [Ratio] 34.41 kg/m2 Wagner Marrufo Other [employer] Other 09-09-2022 14:30-0500 Body weight 101.15 kg Wagner Marrufo Other [employer] Other 08-13-2022 12:15-0500 Body height 171.45 cm Brock Modi Other [employer] Other 08-13-2022 12:15-0500 Body mass index (BMI) [Ratio] 34.38 kg/m2 Brock Modi Other [employer] Other 08-13-2022 12:15-0500 Body weight 101.06 kg Brock Modi Other [employer] Other 08-13-2022 12:15-0500 Diastolic blood pressure 84 mm[Hg] Brock Modi Other [employer] Other 08-13-2022 12:15-0500 SaO2% (BldA) [Mass fraction] 97 % Brock Modi Other [employer] Other 08-13-2022 12:15-0500 Systolic blood pressure 132 mm[Hg] Brock Modi Other [employer] Other 07-30-2022 12:30-0500 Body height 171.45 cm Brock Modi Other [employer] Other 07-30-2022 12:30-0500 Body mass index (BMI) [Ratio] 32.71 kg/m2 Brock Modi Other [employer] Other 07-30-2022 12:30-0500 Body weight 96.16 kg Brock Modi Other [employer] Other 07-30-2022 12:30-0500 Diastolic blood pressure 80 mm[Hg] Brock Modi Other [employer] Other 07-30-2022 12:30-0500 SaO2% (BldA) [Mass fraction] 97 % Brock Modi Other [employer] Other 07-30-2022 12:30-0500 Systolic blood pressure 122 mm[Hg] Brock Modi Other [employer] Other Encounters Encounter Date Encounter Type Care Provider Facility Start: 10-04-2023 End: 10-05-2023 ambulatory [facility] Start: 09-14-2023 End: 09-14-2023 ambulatory [facility] Ambulatory Start: 09-14-2023 End: 09-14-2023 Office outpatient visit 15 minutes [facility] DO Work Phone: [facility] Comment on above: Atherosclerosis of n ative coronary artery of [place] heart without angina pectoris; Essential hypertension, benign; Mixed hyperlipidemia; Ischemic cardiomyopathy; Past myocardial infarction; Moderate chronic obstructive pulmonary disease ([facility]); Obesity (BMI 35.0-39.9 without comorbidity); Current smoker Start: 09-03-2023 End: 09-03-2023 ambulatory Brock Modi Other [employer] Other Start: 09-03-2023 Telephone encounter Brock Modi [facility] Start: 08-24-2023 Orders Only Kendal Carmen LPN [facility] Comment on above: Abdominal aortic ane urysm (AAA) without rupture, unspecified part (CMS-HCC) (Primary Dx); Obstructive chronic bronchitis with exacerbation (CMS-HCC); Obesity with body mass index (BMI) of 30.0 to 39.9 Start: 08-06-2023 End: 08-06-2023 ambulatory Brock Modi Other [employer] Other Start: 08-06-2023 Office outpatient vi sit 15 minutes Brock Ly [facility] Start: 08-05-2023 End: 08-05-2023 ambulatory CHRISTOPHER SEWELL [facility] Other Start: 08-05-2023 Telephone encounter Brock Modi [facility] Start: 08-05-2023 End: 08-05-2023 Office outpatient visit 15 minutes Christopher Sewell MD [facility] Comment on above: Abdominal aortic ane urysm (AAA) without rupture, unspecified part ([facility]-HCC) (Primary Dx); Obstructive chronic bronchitis with exacerbation ([facility]-HCC); Obesity with body mass index (BMI) of 30.0 to 39.9; Chronic obstructive pulmonary disease, unspecified COPD type ([facility]-HCC) Start: 07-16-2023 End: 07-16-2023 ambulatory Brock Modi Other [employer] Other Start: 07-16-2023 Telephone encounter Brock Ly [facility] Start: 06-24-2023 End: 06-24-2023 ambulatory Brock Ly Other [employer] Other Start: 06-24-2023 Office outpatient vi sit 15 minutes Brock Modi [facility] Start: 04-07-[address] Alok Webber Facility: Start: 04-02-2023 End: 04-02-2023 ambulatory Brock Modi Other [employer] Other Start: 04-02-2023 Telephone encounter Brock Ly [facility] Start: 03-19-2023 End: 03-19-2023 ambulatory Brock Modi Other [employer] Other Start: 03-19-2023 Telephone encounter Brock Modi [facility] Start: 03-16-2023 End: 03-16-2023 ambulatory Brock Modi Other [employer] Other Start: 03-16-2023 Office outpatient vi sit 15 minutes Brock Modi [facility] Start: 02-04-2023 End: 02-04-2023 ambulatory Brock Modi Other [employer] Other Start: 02-04-2023 Office outpatient vi sit 15 minutes Brock Modi [facility] Start: 01-29-2023 End: 01-29-2023 ambulatory Viral Yang Other [employer] Other Start: 01-29-2023 Telephone encounter Viral Yang [facility] Start: 01-27-2023 Rx Renewal Brock Modi Work Phone: [facility] 250 DO Work Phone: Start: 01-19-2023 Patient encounter procedure Brock Modi Work Phone: [facility] 250A [place] Work Phone: Start: 01-14-2023 End: 01-14-2023 ambulatory Brock Modi Other [employer] Other Start: 01-14-2023 Telephone encounter Brock Modi [facility] Start: 12-24-2022 Office outpatient vi sit 40 minutes Brock Modi Work Phone: [facility] 250 DO Work Phone: Start: 12-24-[address] Alok Webber Facility: Start: 12-04-2022 End: 12-04-2022 ambulatory Brock Modi Other [employer] Other Start: 12-04-2022 Telephone encounter Brock Modi [facility] Start: 12-03-2022 End: 12-03-2022 ambulatory Brock Modi Other [facility] [employer] Other Start: 12-03-2022 Telephone encounter Brock Modi [facility] Start: 11-27-2022 End: 11-27-2022 ambulatory Wagner Marrufo Other [facility] [employer] Other Start: 11-27-2022 Office outpatient vi sit 25 minutes Wagner Marrufo [facility] Start: 11-12-2022 End: 11-12-2022 ambulatory Brock Modi Other [facility] [employer] Other Start: 11-12-2022 Office outpatient vi sit 15 minutes Brock Modi [facility] Start: 11-04-2022 ambulatory JANINE SCOTT Facili ty:H1 Start: 11-03-2022 End: 11-03-2022 ambulatory Kamal Jazzban Facility:[facility] Start: 11-03-2022 End: 11-03-2022 ambulatory MD Brock Modi Work Phone: [facility] Work Phone: Start: 11-03-2022 End: 11-03-2022 Patient encounter procedure MD Brock Modi Work Phone: [facility]-CT Scan [facility] [place] Work Phone: Start: 11-02-2022 Patient encounter procedure Brock Modi Work Phone: [facility] 250 DO Work Phone: Start: 11-02-2022 ambulatory Janine Cunha Facility:1 [id number] Start: 10-29-2022 Chart Update Brock Modi Work Phone: [facility] 600 DO Work Phone: Start: 10-28-2022 End: 10-28-2022 ambulatory Janine Cunha Facility:[facility] Start: 10-28-2022 End: 10-28-2022 ambulatory MD Brock Modi Work Phone: [facility] Work Phone: Start: 10-28-2022 End: 10-28-2022 Patient encounter procedure MD Brock Modi Work Phone: [facility]-Lab [facility] [place] Work Phone: Start: 10-27-2022 End: 10-27-2022 ambulatory Brock Modi Other [employer] Other Start: 10-27-2022 Telephone encounter Brock Modi [facility] Start: 10-21-2022 Transitional care ga daron srvc 14 day discharge Brock Modi Work Phone: [facility] 250 DO Work Phone: Start: 10-21-2022 End: 10-21-2022 ambulatory Janine Cunha [facility] Other Start: 10-21-2022 Telephone encounter Adi Campos [facility] Start: 10-20-2022 End: 10-20-2022 ambulatory Adi Campos Other [employer] Other Start: 10-20-2022 Office outpatient ne w 45 minutes Adi Campos [facility] Start: 10-15-2022 End: 10-15-2022 ambulatory Brock Modi Other [employer] Other Start: 10-15-2022 Office outpatient vi sit 15 minutes Brock Modi [facility] Start: 10-10-[address] Brock Modi Facility:[id number] Start: 10-10-2022 End: 10-13-2022 Evaluation and management of inpatient Farida Mischler Facility:[facility] Start: 10-10-2022 End: 10-13-2022 Evaluation and management of inpatient MD Brock Modi Work Phone: [facility] [employer] Work Phone: Start: 10-10-2022 End: 10-10-2022 ambulatory COLIN TREADWELL Facility:[facility]1 Start: 09-09-2022 End: 09-09-2022 ambulatory Wagner Marrufo Facility:[facility] Start: 09-09-2022 Office outpatient ne w 45 minutes Wagner Marrufo [facility] Start: 09-09-2022 End: 09-09-2022 ambulatory DO Wagner Marrufo Work Phone: [facility] Work Phone: Start: 09-09-2022 End: 09-09-2022 Patient encounter procedure DO Wagner Marrufo Work Phone: [facility] Start: 09-07-2022 End: 09-08-2022 ambulatory COLIN TREADWELL Facility:[facility]1 Start: 08-13-2022 End: 08-13-2022 ambulatory Brock Modi Other [facility] Other Start: 08-13-2022 Office outpatient vi sit 15 minutes Brock Modi [facility] Start: 08-10-2022 End: 08-11-[address] BROCK MODI Facility:H1 Start: 07-30-2022 End: 07-30-2022 ambulatory Brock Modi Other [facility] Other Start: 07-30-2022 Office outpatient vi sit 25 minutes Brock Modi [facility] Start: 07-28-2022 End: 07-28-2022 ambulatory Brock Modi Other [facility] Other Start: 07-28-2022 Telephone encounter Brock Modi [employer] Start: 07-10-2022 End: 07-11-[address] CAR LIGHT Facility:H1 Start: 07-08-2022 End: 07-08-[address] JANELLE Moser Facility:[facility]1 Start: 07-05-2022 End: 07-05-[address] RUBÉN DALY Facility:H1 Start: 07-03-2022 End: 07-04-[address] ARLIN CUNHA Facility:[facility]1 Start: 02-03-2022 End: 02-03-[address] ARLIN CUNHA Facility:[facility]1 Patient encounter status Brock Modi Work Phone: [facility] 250 DO Work Phone: Procedures Date Procedure Procedure Detail Performing Clinician Start: 08-05-2023 Follow-up visit Follow-up CHRISTOPHER SEWELL Start: 11-03-2022 CT of thorax with contrast MD Brock Modi Work Phone: Start: 10-11-2022 Plain chest X-ray MD Lisa Modi Work Phone: Start: 10-10-2022 [facility] [...] Treatment Date Care Activity Detail Author Start: 2025 Pneumococcal Vaccine : Pediatrics (0 to 5 Years) and At-Risk Patients (6 to 64 Years) (3 - PPSV23 or PCV20) Pneumococcal Vaccine: Pediatrics (0 to 5 Years) and At-Risk Patients (6 to 64 Years) (3 - PPSV23 or PCV20) [facility] Start: 09-20-2024 End: 09-20-2024 Patient encounter procedure 09/20/2024 9:00 AM EST Office Visit [facility] [address] [place] [id number] Alok Webber, [address] [place] [address] [facility] Start: 08-05-2024 Adult BMI Screening Adult BMI Screen ing [facility] Start: 08-05-2024 Tobacco Screening Tobacco Screening [facility] Start: 02-17-2024 End: 02-17-2024 Patient encounter procedure 02/17/2024 10:10 AM EDT Office Visit [facility] [address] [place] [address] Rom Pierre MD 2 AALIYAH BIRD, [address] [address] [facility] Start: 09-05-2023 Tobacco Counseling Tobacco Counselin g [facility] Start: 08-24-2023 End: 08-24-2024 CTA Abdominal vessels and Pelvis vessels W contrast IV CT angiogram abdomen and pelvis Imaging Routine Abdominal Aortic Aneurysm (Aaa) Without Rupture, Unspecified Part (Cms-Hcc) Obstructive chronic bronchitis with exacerbation (CMS-HCC) Obesity with body mass index (BMI) of 30.0 to 39.9 Expected: 08/24/2023, Expires: 08/24/2024 [employer] Work Phone: Comment on above: Expected: 08/24/2023 [...] COPD type (CMS-HCC) Expected: 08/22/2023, Expires: 08/22/2024 [employer] Work Phone: Comment on above: Expected: 08/22/2023 , Expires: 08/22/2024 Start: 04-07-2023 FUV, Provider: Alok Webber, Status: Pen, Time: 11:20 AM FUV, Provider: Alok Webber, Status: Pen, Time: 11:20 AM [facility] 250 DO Work Phone: Start: 03-26-2023 Influenza vaccination P [facility] Start: 01-19-2023 FUV, Provider: Alok Webber, Status: Pen, Time: 2:30 PM FUV, Provider: Alok Webber, Status: Pen, Time: 2:30 PM [facility] 250 DO Work Phone: Start: 11-02-2022 HOLTER 48, Provider: VERONICA LANGLEY VISUAL TRAINING AIDE 1,[id number], Status: Pen, Time: 2:30 PM HOLTER 48, Provider: VERONICA LANGLEY VISUAL TRAINING AIDE 1,[id number], Status: Pen, Time: 2:30 PM [facility] 250 DO Work Phone: Start: 10-13-2022 [facility] Start: 10-10-2022 Dilation of Coronary Artery, Two Arteries with Three Drug-eluting Intraluminal Devices, Percutaneous Approach Dilation of Coronary Artery, Two Arteries with Three Drug-eluting Intraluminal Devices, Percutaneous Approach [facility] Start: 10-10-2022 Fluoroscopy of Left Heart using Low Osmolar Contrast Fluoroscopy of Left Heart using Low Osmolar Contrast [facility] Start: 10-10-2022 Fluoroscopy of Multi ple Coronary Arteries using Low Osmolar Contrast Fluoroscopy of Multiple Coronary Arteries using Low Osmolar Contrast [facility] Start: 10-10-2022 Measurement of Cardi ac Sampling and Pressure, Left Heart, Percutaneous Approach Measurement of Cardiac Sampling and Pressure, Left Heart, Percutaneous Approach [facility] Start: 10-10-2022 Hospital admission [facility] Start: 10-10-2022 [facility] Start: 10-10-2022 Hospital admission [facility] Start: 10-10-2022 [facility] Start: 2010 Administration of varicella zoster vaccine Zoster (Shingles) Vaccine (1 of 2) [facility] [employer] Start: 2010 Zoster Vaccines (1 of 2) Zoste r Vaccines (1 of 2) [facility] Start: 1982 DTaP/Tdap/Td Vaccine s (1 - Tdap) DTaP/Tdap/Td Vaccines (1 - Tdap) [facility] Start: 1979 DTaP,Tdap and Td Vac cines (1 - Tdap) DTaP,Tdap and Td Vaccines (1 - Tdap) [facility] Start: 1978 Adult BMI Follow Up Plan Adult BMI Follow Up Plan [facility] Start: 1978 Diabetes mellitus screening Diabetes Screening [facility] Start: 1978 Hepatitis C screening Hepatitis C Sc reening [facility] Start: 1972 Depression Screening Depression Scre ening [facility] Start: 1961 MMR Vaccines (1 of 1 - Standard series) MMR Vaccines (1 of 1 - Standard series) [facility] Start: 1960 COVID-19 Vaccine (#1) COVID-19 Vacci ne (#1) [facility] Start: 1960 HIV screening HIV Screening [facility] Start: 1960 Lipid panel Lipid Panel [facility] Start: 1960 Screening for malign ant neoplasm of colon [facility] Start: 1960 Yearly Adult Physical Yearly Adult P hysical [facility] End: 08-22-2024 Creatinine includes GFR, serum Creatinine includes GFR, serum Lab Routine Abdominal Aortic Aneurysm (Aaa) Without Rupture, Unspecified Part (Cms-Hcc) Obstructive chronic bronchitis with exacerbation (CMS-HCC) Obesity with body mass index (BMI) of 30.0 to 39.9 Chronic obstructive pulmonary disease, unspecified COPD type (CMS-HCC) 1 Occurrences starting 08/22/2023 until 08/22/2024 [employer] Comment on above: 1 Occurrences starti ng 08/22/2023 until 08/22/2024 End: 08-24-2024 Creatinine includes GFR, serum Creatinine includes GFR, serum Lab Routine Abdominal Aortic Aneurysm (Aaa) Without Rupture, Unspecified Part (Cms-Hcc) Obstructive chronic bronchitis with exacerbation (CMS-HCC) Obesity with body mass index (BMI) of 30.0 to 39.9 1 Occurrences starting 08/24/2023 until 08/24/2024 [employer] Work Phone: Comment on above: 1 Occurrences starti ng 08/24/2023 until 08/24/2024 Patient Education Coronary Angio plasty (DC) Coronary Stenting (DC) Angina (DC) Chest Pain (DC) Drug Eluting Stents [facility] Work Phone: Patient referral [facility] Work Phone: Immunizations Immunization Date Immunization Notes Care Provider Fa cility 05-02-2018 pneumococcal Conjuga te, unspecified formulation; Translations: [Need for prophylactic vaccination against Streptococcus pneumoniae (pneumococcus)] Brock Modi Other [facility] [employer] Other 05-02-2018 pneumococcal polysaccharide vaccine, 23 valent Brock Modi Work Phone: [facility] [place] 250 DO Work Phone: 05-26-2017 pneumococcal conjuga te vaccine, 13 valent Brock Modi [facility]: [facility] Work Phone: Payers Date Payer Category Payer Medicaid [id number] 2022 Medicaid [facility] MEDICAID [facility] MEDICAID [id number] 2022-Present [address] [place] [address] [id number] 2022 Self-pay 2019 Unknown 1960 Unknown [id number] 1960 Unknown [id number] 1960 Unknown [id number] 1960 Unknown [id number] 1960 Unknown [id number] 1960 Unknown [id number] 1960 Unknown [id number] 1960 Unknown [id number] 1960 Unknown [id number] 1960 Unknown [id number] 1960 Unknown [id number] 1960 Unknown [id number] 2.16.840.1.152268.3.579.2.356 1960 Unknown [id number] 2.16.840.1.383315.3.579.2.356 1960 Unknown [id number] 2.16.840.1.244291.3.579.2.356 1960 Unknown [id number] 2.16.840.1.574661.3.579.2.1286 1960 Unknown [id number] 2.16.840.1.205320.3.579.2.1244 1960 Unknown [id number] 2.16.840.1.220354.3.579.2.1286 1959 Unknown [id number] 2.16.840.1.620239.19 Unknown [id number] 2.16.840.1.172589.3.579.2.531 Unknown [id number] 2.16.840.1.956324.3.579.2.531 Unknown [id number] 2.16.840.1.491809.3.579.2.531 Unknown [id number] 2.16.840.1.152524.3.579.2.531 Social History Date Type Detail Facility Tobacco smoking stat [facility] Unknown if ever smoked [facility] Work Phone: Start: 1960 Sex Assigned At Male [facility] Start: 08-05-2023 End: 08-06-2023 Sex Assigned At [employer] [facility] [employer] Other Start: 10-10-2022 Tobacco smoking stat [facility] Smoker (finding) [facility] Start: 08-26-2022 End: 08-06-2023 Daily caffeine consumption Daily caffeine consumption -[facility] 250 DO Work Phone: Comment on above: 1/2 gallon coffee da darrion; 5-6 cig daily; 8 cigs daily; Start: 08-26-2022 End: 09-14-2023 Tobacco smoking status WIIS Smokes tobacco daily [employer] Start: 08-08-1991 History of tobacco use Cigarette Smo ker [employer] Start: 08-26-2022 Tobacco use and exposure Smokeless tobacco non-user [employer] Start: 08-05-2023 End: 09-14-2023 Alcohol intake [facility] Within the past 12 months we worried whether our food would run out before we got money to buy more. Never True [employer] Start: 08-26-2022 Tobacco Comment pack and a nathanael f a day pt reports he is really trying to quit 09/04/21 [employer] Start: 1960 Sex Assigned At Not on file P [employer] Start: 09-04-2023 End: 09-14-2023 Exposure to SARS-CoV-2 (event) Not sure [facility] Equipment Procedure Code Equipment Code Equipment Origin al Text Equipment Identifier Dates Drug-eluting coronary artery stent, ksv-[id number]-xe lymer-coated ()[id number] [id number] FDA Start: 10-10-2022 Drug-eluting coronary artery stent, lva-dfdbkjhivaeop-hq lymer-coated ()[id number] [id number] FDA Start: 10-10-2022 Drug-eluting coronary artery stent, yfm-bigspjomgogkp-tr lymer-coated ()[id number] [id number] FDA Start: 10-10-2022 Goals Date Patient Goal Desired Activity /State Functional Status Date Assessment Result Facility 10-13-2022 Functional status Patient at Baseline [facility] Work Phone: Mental Status Date Assessment Result Facility 10-13-2022 Cognitive function Cognitive Sta tus Patient at Baseline [facility] Work Phone: Clinical Notes 07-30-2022 to 09-14-2023 Alok Webber, DO - 09/14/2023 9:10 AM ESTPatient Instructions Note Date & Type Note Facility 09-14-2023 History of Present illness Narrative Subjective Hector Gaspar is a 63 y.o. male Chief Complaint Follow-up 63-year-old gentleman returns for 6-month follow-up he is doing well, he denies angina or nitrate usage or hospitalizations. He still smokes but puffs on cigarettes he does not inhale supposedly but we have counseled him for 3 to 5 minutes again on smoking cessation and its deleterious effects long-term. Patient has known history of ASHD; patient sustained high risk non-ST elevation CO in October 10, 2022 with primary revascularization of the mid RCA with 2 drug-eluting stents in the distal circumflex with 1 drug-eluting stent. These were large stents his left ventricular function was intact with ejection fraction is 60 to 65%. Patient has persistent exertional dyspnea, large right lower lobe mass with atelectasis, history of tobacco use (current) in addition to COPD, hypertension. He is hemodynamically stable; he never underwent his endobronchial biopsy for pulmonary/mediastinal mass last year; and remains compliant on current DAPT and post CO therapies Recommendations: Discontinue ticagrelor, switch to clopidogrel 75 daily for the next 6 to 12 months, follow-up in 1 year, smoking cessation counseling Review of Systems All other systems reviewed and are negative. Vitals: 09/14/23 0913 BP: 118/70 BP Location: Right arm Patient Position: Sitting Pulse: 72 Weight: 107 kg (235 lb) Height: 1.702 m (5' 7 ) Objective Physical Exam Constitutional: Appearance: Normal appearance. He is normal weight. HENT: Nose: Nose normal. Neck: Vascular: No carotid bruit. Cardiovascular: Rate and Rhythm: Normal rate. Pulses: Normal pulses. Heart sounds: Normal heart sounds. Pulmonary: Effort: Pulmonary effort is normal. Abdominal: General: Bowel sounds are normal. Palpations: Abdomen is soft. Genitourinary: Rectum: Normal. Musculoskeletal: General: Normal range of motion. Cervical back: Normal range of motion. Right lower leg: No edema. Left lower leg: No edema. Skin: General: Skin is warm and dry. Neurological: General: No focal deficit present. Mental Status: He is alert. Psychiatric: Mood and Affect: Mood normal. Behavior: Behavior normal. Thought Content: Thought content normal. Judgment: Judgment normal. Allergies Penicillins and Pneumococcal vaccine Current Medications Current Outpatient Medications: aspirin 81 mg EC tablet, Take 1 tablet (81 mg) by mouth once daily., Disp: , Rfl: atorvastatin (Lipitor) 80 mg tablet, TAKE 1 TABLET BY MOUTH EVERYDAY AT BEDTIME, Disp: 90 tablet, Rfl: 3 metoprolol tartrate (Lopressor) 25 mg tablet, Take 1 tablet (25 mg) by mouth 2 times a day., Disp: , Rfl: nitroglycerin (Nitrostat) 0.4 mg SL tablet, Place 1 tablet (0.4 mg) under the tongue every 5 minutes if needed for chest pain., Disp: , Rfl: spironolactone (Aldactone) 25 mg tablet, Take 1 tablet (25 mg) by mouth once daily., Disp: , Rfl: valsartan (Diovan) 160 mg tablet, Take 1 tablet (160 mg) by mouth once daily., Disp: , Rfl: Assessment/Plan 1. Atherosclerosis of klamath coronary artery of klamath heart without angina pectoris 2. Essential hypertension, benign 3. Mixed hyperlipidemia 4. Ischemic cardiomyopathy 5. Past myocardial infarction 6. Moderate chronic obstructive pulmonary disease (CMS/HCC) 7. Obesity (BMI 35.0-39.9 without comorbidity) 8. Current smoker Scribe Attestation By signing my name below, Kate Reid LPN , Scribe attest that this documentation has been prepared under the direction and in the presence of Alok Webber DO. Provider Attestation - Scribe documentation All medical record entries made by the Scribe were at my direction and personally dictated by me. I have reviewed the chart and agree that the record accurately reflects my personal performance of the history, physical exam, discussion and plan. documented in this encounter [facility] Work Phone: 09-14-2023 Instructions Kate Cruz LPN - 09/14/2023 9:10 AM EST Please bring all medicines, vitamins, and herbal supplements with you when you come to the office. Prescriptions will not be filled unless you are compliant with your follow up appointments or have a follow up appointment scheduled as per instruction of your physician. Refills should be requested at the time of your visit. Stop brilinta 10/11/2023, start plavix 75mg daily BMI was above normal measurement. Current weight: 107 kg (235 lb) Weight change since last visit (-) denotes wt loss 18 lbs Weight loss needed to achieve BMI 25: 75.7 Lbs Weight loss needed to achieve BMI 30: 43.9 Lbs Provided instructions on dietary changes Provided instructions on exercise. documented in this encounter [facility] Work Phone: 08-06-2023 Evaluation note Encounter Date Diagnosis Assessment [...] 6 months with imaging at that time. [facility] Other 01-11-2024 History of Present illness Narrative* Christopher Sewell MD - 08/05/2023 11:20 AM EST CHIEF COMPLAINT: Chief Complaint Patient presents with Follow-up Yearly follow up. Testing was in 08/2022. HISTORY OF PRESENT ILLNESS: Hector Gaspar Sr. is a 63 y.o. male who presents [...] aortic aneurysm (AAA) without rupture, unspecified part ([facility]) - [facility] - [place], [place] - CT angiogram abdomen and pelvis; Future - Creatinine includes GFR, serum; Future Obstructive chronic bronchitis with exacerbation ([facility]-H[facility]) - CT angiogram abdomen and pelvis; Future - Creatinine includes GFR, serum; Future Obesity with body mass index (BMI) of 30.0 to 39.9 - CT angiogram abdomen and pelvis; Future - Creatinine includes GFR, serum; Future Chronic obstructive pulmonary disease, unspecified COPD type (CMS-HCC) - CT angiogram abdomen and pelvis; Future - Creatinine includes GFR, serum; Future Patient with infrarenal abdominal aortic aneurysm. His most recent duplex ultrasound shows 5.2 cm and that was in June of 2023. At this point I will see him back in 6 months with a follow-up CT angiogram. documented in this encounterMary[facility] HospitalW[facility] [id number] Evaluation note* Encounter Date Diagnosis Assessment Notes Treatment Notes Treatment Clinical Notes Jun, Abdominal aortic aneurysm (AAA) without rupture, unspecified part (ICD-10 - I71.40) [facility] Other 11-30-2023 Evaluation note* Encounter Date Diagnosis Assessment Notes Treatment Notes Treatment Clinical Notes May, Abdominal aortic aneurysm (AAA) without rupture, unspecified part (ICD-10 - I71.40) Pt requests order as he is overdue for recheckUS. May, Bronchitis (ICD-10 - J40) Finish meds and treatment plan ordered by ER recently. Pt understands as he is improving. [facility] Other 08-25-2023 Evaluation note* Encounter Date Diagnosis Assessment Notes Treatment Notes Treatment Clinical Notes Feb, Acute cystitis without hematuria (ICD-10 - N30.00) [facility] Other 08-22-2023 Evaluation note* Encounter Date Diagnosis Assessment Notes Treatment Notes Treatment Clinical Notes Feb, Penile discharge (ICD-10 - R36.9) Pt request STI testing Feb, Dysuria (ICD-10 - R30.0) Rule out UTI based on symptoms. Will call w results. Push fluids. Feb, Chronic obstructive pulmonary disease, unspecified (ICD-10 - J44.9) Clinical diagnosis secondary to 83-esve-dlyf history of tobacco abuse. He will need PFTs in the future. Discussed missed appts w Dr. Campos and sleep lab. He states he will not followup there as he doesn't want to do a lung biopsy. His resp symptoms are improved overall. He expresses understanding on the severity of his condition and he chooses not to followup. [facility] Other 07-13-2023 Evaluation note* Encounter Date Diagnosis [...] had COVID. He will call to reschedule. [facility] Other 07-07-2023 Evaluation note* Encounter Date Diagnosis Assessment Notes Treatment Notes Treatment Clinical Notes Jan, Situational anxiety (ICD-10 - F41.8) [facility] Other 05-11-2023 Evaluation note* Encounter Date Diagnosis Assessment Notes Treatment Notes Treatment Clinical Notes November, Situational anxiety (ICD-10 - F41.8) [facility] Other 05-05-2023 Evaluation note* Encounter Date Diagnosis [...] surgical interventions. Tobacco cessation program at [facility] has been recommended and offered as well as the national Quitline 2-999-YOOX-NOW. We have discussed pharmacologic treatment including nicotine replacement therapy which can lead to a positive nicotine test as well as nicotine free medications both of which will need to be managed by their PCP. We have provided handout for the [facility] Tobacco Cessation Program. This discussion was limited to 5 minutes. [facility] Other 04-20-2023 Evaluation note* Encounter Date Diagnosis Assessment Notes Treatment Notes Treatment Clinical Notes Oct, Chronic obstructive pulmonary disease, unspecified COPD type (ICD-10 - J44.9) Will resume inhalers as prescribed. Keep appt w Dr. Campos. Notes frequent dyspnea, agrees to a prednisone course. 20 Apr, 2023 INOCENTE (obstructive sleep apnea) (ICD-10 - G47.33) [facility] He has to meet with the sleep specialist before the test is done, even though it was already ordered. I gave him the date of the appt. I also ordered the test. Oct, Coronary artery disease involving klamath heart without angina pectoris, unspecified vessel or lesion type (ICD-10 - I25.10) Continued followup w [facility]. Continue time off work until breathing status is improved. [facility] Other 03-28-2023 Evaluation note* Encounter Date Diagnosis Assessment Notes Treatment Notes Treatment Clinical Notes Sep, Chronic obstructive pulmonary disease, unspecified COPD type (ICD-10 - J44.9) Trelegy samples and training please Sep, Atelectasis of right lung (ICD-10 - J98.11) Please obtain any previous chest CT done at [place] in the past, and have them load onto our PACS Sep, Tobacco use disorder (ICD-10 - F17.200) Sep, Coronary artery disease involving klamath heart without angina pectoris, unspecified vessel or lesion type (ICD-10 - I25.10) [facility] Other 03-23-2023 Evaluation note* Encounter Date Diagnosis Assessment Notes Treatment Notes Treatment Clinical Notes Sep, Coronary artery disease involving klamath coronary artery of klamath heart without angina pectoris (ICD-10 - I25.10) [...] needs a titration study at the least. [facility] Other 03-21-2023 Hospital Discharge instructions Additional Instructions [...] doctor or pharmacist, without first calling the hay rake operator who implanted the stent. If you [...] weight lifting, stair steppers, etc. until the hay rake operator approves these activities. Check with the hay rake operator on your first follow-up visit. CALL YOUR PHYSICIAN at [phone]: -If bleeding should occur from the catheter insertion site- apply pressure to the site then immediately call us. -Report any fever, redness, drainage, increased swelling, or firmness at the catheter insertion site. Some bruising or slight swelling may be present at the time of discharge. -Should arm or leg become cold, numb, white, or blue, contact the hay rake operator immediately. -IF you should experience episodes [...] is recommended. Please call Central Scheduling at [phone] to schedule your appointment.] The attending hay rake operator or [facility] nurse clinician should provide you with specific instructions regarding activity, diet, medications, and further follow up for you. Follow the medication instructions provided on your discharge. If the dosages and instructions on this sheet differ from the dosage and instructions on the bottle, follow the instructions on the bottle. [facility] is not responsible for incorrect prescription information provided by the patient during their visit. Do not stop your medications without consulting your health care provider. Please take the list with you to your next doctor's appointment.[facility] Work Phone: 1(910) 360-752803-21-2023 Progress note Author Rubén Tatum [facility] October 13, 2022 9:02am Note Date/Time October 13, 2022 9:0 2am [facility] [address] [place] [address] Cardiology Progress Note Signed Patient: Hector Gaspar MR#: [id number] : 1960 Acct:[id number] Age/Sex: 62 / M Adm Date: 3 Loc: Room: [address] [place] [address] Type: ADM IN Attending Dr: Barbara Rivero [...] on postNSTEMI/PCI metoprolol tartrate. 5. Follow-up in [facility] heart clinic within 10 days. From there [...] signed by Rubén Tatum MD> 10/13/22 0902 [facility] Work Phone: 1(255) 943-855703-20-2023 Progress note Author Barbara Rivero [facility] October 12, 2022 2:24pm Note Date/Time October 12, 2022 2:1 2pm [facility] [address] [place] [address] Hospitalist Progress Note Signed Patient: Hector Gaspar MR#: [id number] : 1960 Acct:[id number] Age/Sex: 62 / M Adm Date: 3 Loc: Room: [address] [place] [address] Type: ADM IN Attending Dr: Barbara Rivero [...] Syringe SUBCUT 10/12/23 09:59 Not Given DAILY@1000 [facility] Fentanyl Citrate 25 mcg 10/10/22 12:23 Fentanyl/Pf [...] this time. (3) Ventricular tachycardia seen on liaison officer: Plan: No further episodes of ventricular tachycardia. [...] <Electronically signed by Barbara Rivero MD> 10/12/22 1428 [facility] Work Phone: 1(795) 959-632403-20-2023 Progress note Author Rubén Tatum [facility] October 12, 2022 10:00am Note Date/Time October 12, 2022 9:5 9am [facility] [address] [place] [address] Cardiology Progress Note Signed Patient: Hector Gaspar MR#: [id number] : 1960 Acct:[id number] Age/Sex: 62 / M Adm Date: 3 Loc: Room: [address] [place] [address] Type: ADM IN Attending Dr: Barbara Rivero [...] pacing device. (3) Ventricular tachycardia seen on liaison officer: Assessment/Problem Details: Stable no further wide-complex tachycardia [...] Rubén Tatum MD> 10/12/22 1000 [facility] Work Phone: 1(140) 367-222403-19-2023 Progress note Author Barbara Rivero [facility] October 11, 2022 11:24am Note Date/Time October 11, 2022 11: 15am [facility] [address] [place] [address] Hospitalist Progress Note Signed Patient: Hector Gaspar SR MR#: [id number] : 1960 Acct:[id number] Age/Sex: 62 / M Adm Date: 3 Loc: Room: [address] [place] [address] Type: ADM IN Attending Dr: Barbara Rivero [...] 10/10/22 09:00 10/11/22 09:18 Pantoprazole 40 Mg Tablet. PO 10/10/23 08:59 40 mg DAILY AWA [...] smoking cessation. (3) Ventricular tachycardia seen on liaison officer: Plan: Patient given potassium and magnesium supplement. [...] <Electronically signed by Barbara Rivero MD> 10/11/22 1124 [facility] Work Phone: 1(833) 788-780903-19-2023 Progress note Author Rubén Tatum [facility] October 11, 2022 9:41am Note Date/Time October 11, 2022 9:3 3am [facility] [address] [place] [address] Cardiology Progress Note Signed Patient: Hector Gaspar MR#: [id number] : 1960 Acct:[id number] Age/Sex: 62 / M Adm Date: 3 Loc: Room: [address] [place] [address] Type: ADM IN Attending Dr: Barbara Rivero [...] 16 155/90 H 97 Room Air 2 03/19/23 08:00 10/11/22 08:00 10/11/22 08:00 10/11/22 08:00 [...] % (Auto) 63.8 Lymph % (Auto) 21.8 Clark % (Auto) 10.2 Eos % (Auto) 3.7 Baso % (Auto) 0.5 Nucleat RBC Rel Count 0.1 Neut # (Auto) 4.2 Lymph # (Auto) 1.4 Clark # (Auto) 0.7 Eos # (Auto) 0.2 [...] MPV Neut % (Auto) Lymph % (Auto) Clark % (Auto) Eos % (Auto) Baso % (Auto) Nucleat RBC Rel Count Neut # (Auto) Lymph # (Auto) Clark # (Auto) Eos # (Auto) Baso # [...] AV node (3) Ventricular tachycardia seen on liaison officer: Assessment/Problem Details: Not entirely certain that this [...] 30 Documented By: Rubén Tatum MD 10/11/22 2953 Signed By: <Electronically signed by Rubén Tatum MD> 10/11/22 4127 [facility] Work Phone: 1(266) 386-590803-18-2023 Progress note Author Barbara Rivero [facility] October 10, 2022 1:33pm Note Date/Time October 10, 2022 1:3 3pm [facility] [address] [place] [address] Event Note Signed Patient: Hector Gaspar SR MR#: [id number] : 1960 Acct:[id number] Age/Sex: 62 / M Adm Date: 3 Loc: 4 Room: [address] [place] [address] Type: ADM IN Attending Dr: Barbara Rivero [...] <Electronically signed by Barbara Rivero MD> 10/10/221332 [facility] Work Phone: 1(347) 989-911903-18-2023 History of Present illness Narrative* Patient presents to the office ambulatory with steady gait. * This is initial [facility]. * October 10, [address] [facility] from [facility] d/t NSTEMI. Managed by with uneventful PCI, [...] medication regimen. He denies medication side effects. -[facility] 250 DO Work Phone: 1(587) 178-809303-18-2023 [facility] Procedure [facility]03-18-2023 Consult note Author Rubén Tatum [facility] October 10, 2022 9:54am Note Date/Time October 10, 2022 9:5 1am [facility] [address] [place] [address] Cardiology Consult Note Signed Patient: Hector Gaspar SR MR#: [id number] : 1960 Acct:[id number] Age/Sex: 62 / M Adm Date: 3 Loc: Room: [address] [place] [address] Type: ADM IN Attending Dr: Barbara Rivero MD Copies to: MD Barbara Barry MD Stephen M Tann, MD~ Cardiology HPI History of Present Illness Consult Date: 10/10/22 Reason for Consult: Nausea, non-STEMI HPI: Mr. Gaspar is a 62 year old male with multiple cardiac risk factors but no known prior coronary heart disease who presented to [place] emergency department lastnight complaining of nausea x2 [...] consistent nausea ever since. He presented to [place] emergency department last evening with these complaints. In the ER at [place] ECG showed Q waves in the inferolateral [...] trend upward to 6000 and then greater [id number]. Echocardiogram at bedside this morning shows normal [...] Lymph # (Auto) 1.4 1.4 (1.00-4.8) x10E3/uL Clark # (Auto) 0.6 0.6 (0.0-0.8) x10E3/uL Eos [...] Dysrhythmias Sinus rhythms and dysrhythmias: sinus rhythm CO, pacemaker, normal Myocardial infarction: inferior CO (old age indeterminate) and lateral CO (acuteor recent) A&P - Cardiology (1) NSTEMI [...] signed by Rubén Tatum MD> 10/10/22 0954 [facility] Work Phone: 1([phone]) 286-675403-18-2023 History and physical note Author Galo Dent [facility] October 10, 2022 7:28am Note Date/Time October 10, 2022 7:2 8am [facility] [address] [place] [address] Hospitalist H&P Signed Patient: Hector Gaspar SR MR#: [id number] : 1960 Acct:[id number] Age/Sex: 62 / M Adm Date: 3 Loc: Room: [address] [place] [address] Type: ADM IN Attending Dr: Barbara Rivero MD Copies to: MD Barbara Barry MD Mushtaq Mahmood, MD~ HPI DATE OF EXAMINATION: 10/10/22 CHIEF COMPLAINT: Non-ST elevation CO HISTORY OF PRESENT ILLNESS: Patient is a 62-year-old gentleman with history of hypertension, heavy smoking about 1-1/2 pack for 45 years, COPD, strong family history of coronary artery disease, came to us from [place] emergency department last night. Patient presented to [...] The ER physician did talk to the hay rake operator here in [facility]. Patient was started on heparin drip, nitro patch was applied. He was sent to our hospital. Upon arrival in the [facility] patient complained about headache. Nitropatch was removed. [...] % (Auto) 27.5 % (.) 10/10/22 06:10 Clark % (Auto) 11.4 % (.) 10/10/22 06:10 Eos % (Auto) 4.4 % (.) 10/10/22 06:10 Baso % (Auto) 0.6 % (.) 10/10/22 06:10 Nucleat RBC Rel Count 0.1 /100 WBC (0-0.5) 10/10/22 06:10 Neut # (Auto) 2.9 x10E3/uL (1.8-7.7) 10/10/22 06:10 Lymph # (Auto) 1.4 x10E3/uL (1.00-4.8) 10/10/22 06:10 Clark # (Auto) 0.6 x10E3/uL (0.0-0.8) 10/10/22 06:10 [...] heartcath by cardiology today. I have consulted [facility] heart. He was offered nicotine patch. [...] signed by Galo Dent MD> 10/10/22 0728 [facility] Work Phone: 1(222) 274-940702-15-2023 Evaluation note* Encounter Date Diagnosis Assessment Notes [...] in office today. Prior medical notes from [place] ED and history have been reviewed. At [...] surgical interventions. Tobacco cessation program at [facility] has been recommended and offered as well as the national Quitline 5-056-ZSSV-NOW. We have discussed pharmacologic treatment including nicotine replacement therapy which can lead to a positive nicotine test as well as nicotine free medications both of which will need to be managed by their PCP. We have provided handout for the [facility] Tobacco Cessation Program. This discussion was limited to 5 minutes. Aug, Other See orders for this visit as documented in the electronic medical record. [facility] Other 01-19-2023 Evaluation note* Encounter Date Diagnosis Assessment Notes Treatment Notes Treatment Clinical Notes Jul, Chronic obstructive pulmonary disease with acute exacerbation (ICD-10 - J44.1) Discussed diagnosis with patient. Medication profile and possible SE reviewed with patient. Take as directed. Keep appt w Dr. Castillo on 08/31. Notify office if not improving or worsening. Patient verbalizes understanding and agrees to treatment plan. [facility] Other 01-05-2023 Evaluation note* Encounter Date Diagnosis Assessment Notes Treatment Notes Treatment Clinical Notes Jul, Chronic obstructive pulmonary disease with acute exacerbation (ICD-10 - J44.1) [facility] [employer] Other Discharge summary Author Barbara Rivero [facility] October 13, 2022 2:14pm Note Date/Time October 13, 2022 2:0 9pm [facility] [address] [place] [address] Discharge Summary Signed Patient: Hector Gaspar SR MR#: [id number] : 1960 Acct:[id number] Age/Sex: 62 / M Adm Date: 3 Loc: Room: [address] [place] [address]: Barbara Rivero MD Copies to: [...] transferred from outside facility for non-ST elevated CO. He was started on heparin drip as [...] doctor or pharmacist, without first calling the hay rake operator who implanted the stent. If you [...] weight lifting, stair steppers, etc. until the hay rake operator approves these activities. Check with the hay rake operator on your first follow-up visit. CALL YOUR PHYSICIAN at [phone]: -If bleeding should occur from the catheter insertion site- apply pressure to the site then immediately call us. -Report any fever, redness, drainage, increased swelling, or firmness at the catheter insertion site. Some bruising or slight swelling may be present at thetime of discharge. -Should arm or leg become cold, numb, white, or blue, contact the hay rake operator immediately. -IF you should experience episodes [...] is recommended. Please call Central Scheduling at [phone] to schedule your appointment.] The attending hay rake operator or [facility] nurse clinician should provide you with specific instructions regarding activity, diet, medications, and further follow up for you. Follow the medication instructions provided on your discharge. If the dosages and instructions on this sheet differ from the dosage and instructions on the bottle, follow the instructions on the bottle. [facility] is not responsible for incorrect prescription information [...] BY MOUTH EVERY DAY Other Ambulatory Orders: RETURN CHECKER polysom procedure (Routine) Timeframe: 1 Week Location: Determined by Patient Ordered By: Barbara Rivero Follow Up: [facility] [Outside] (Left message with Critical [...] signed by Barbara Rivero MD> 10/13/22 1414 [facility] Work Phone: Evaluation noteNo assessment information available [facility] Work Phone: Evaluation noteNo InformationNort [employer] Other Evaluation note* Diagnosis Onset Date Resolution Status COPD (chronic obstructive pulmonary disease) acute Heart block AV complete acut e Hypertension acute Hypoxemia acute NSTEMI (non-ST elevated myocardial infarction) acute Sleep apnea in adult acute Tobacco abuse acute Ventricular tachycardia seen on liaison officer acute [facility] Work Phone: Evaluation note* Diagnosis Abdominal aortic aneurysm (AAA) without rupture, unspecified part ([facility])- Primary Obstructive chronic bronchitis with exacerbation (CMS-HCC) Obstructive chronic bronchitis with exacerbation Obesity with body mass index (BMI) of 30.0 to 39.9 Chronic obstructive pulmonary disease, unspecified COPD type (CMS-HCC) documented in this encounter [facility] SystemEvaluation note* Diagnosis Abdominal aortic aneurysm (AAA) without rupture, unspecified part ([facility])- Primary Obstructive chronic bronchitis with exacerbation ([facility]) Obstructive chronic bronchitis with exacerbation Obesity with body mass index (BMI) of 30.0 to 39.9 documented in this encounter [facility] SystemEvaluation note* Diagnosis Abdominal aortic aneurysm (AAA) without rupture, unspecified part ([facility])- Primary Obstructive chronic bronchitis with exacerbation ([facility]) Obstructive chronic bronchitis with exacerbation Obesity with body mass index (BMI) of 30.0 to 39.9 documented in this encounter [facility] SystemEvaluation note* Diagnosis Atherosclerosis of [place] coronary artery of [place] heart without angina pectoris Essential hypertension, benign Mixed hyperlipidemia Ischemic cardiomyopathy Other specified forms of chronic ischemic heart disease Past myocardial infarction Old myocardial infarction Moderate chronic obstructive pulmonary disease ([facility]) Chronic airway obstruction, not elsewhere classified Obesity (BMI 35.0-39.9 without comorbidity) Current smoker documented in this encounter [facility] Work Phone: History general Narrative - Reported* [...] History appendectomy 05/02/18 Hospitalization History SEE SURGICAL [facility] Other History general Narrative - Reported* Type [...] 3 Stents 09/2022 Hospitalization History SEE SURGICAL [facility] Other Hisqzce general Narrative - Reported* Type Description Date [...] Stents 09/2022 Hospitalization History SEE SURGICAL HX [facility] Other History general Narrative - Reported* Type [...] History SEE SURGICAL HX Hospitalization History pneumonia [facility] Other InstructionsNot on filedocumented in this encounter [employer] SystemInstructionsNot on filedocumented in this encounter [employer] SystemInstructionsNot on filedocumented in this encounter ProMEcorithm SystemReason for referral (narrative)* Consultation (Routine) - Authorized Specialty Diagnoses / Procedures Referred By Yang t Referred To Contact Cardiology Diagnoses Atherosclerosis of [place] coronary artery of [place] heart without angina pectoris Procedures Follow Up In Cardiology Alok Webber DO [address] [place] [address] Alok Webber DO [address] [facility] 2, [address] [address] Referral ID Status Reason Start Date Expiration Date V isits Requested Visits Authorized [id number] Authorized 09/14/2023 09/13/2024 1 1 [facility] Work Phone: Chief Complaint and Reason for Visit Chief Complaint M25.561 Elevated Troponin Reason for Visit COPD (chronic obstru ctive pulmonary disease) Heart block AV complete Hypertension Hypoxemia NSTEMI (non-ST elevated myocardial infarction) Sleep apnea in adult Tobacco abuse Ventricular tachycardia seen on liaison officer Chief Complaint M25.561 Elevated Troponin I25.10 I10 E78.2 Reason for Visit COPD (chronic obstru ctive pulmonary disease) Heart block AV complete Hypertension Hypoxemia NSTEMI (non-ST elevated myocardial infarction) Sleep apnea in adult Tobacco abuse Ventricular tachycardia seen on liaison officer Chief Complaint M25.561 Elevated Troponin I25.10 I10 E78.2 j98.11 Reason for Visit COPD (chronic obstru ctive pulmonary disease) Heart block AV complete Hypertension Hypoxemia NSTEMI (non-ST elevated myocardial infarction) Sleep apnea in adult Tobacco abuse Ventricular tachycardia seen on liaison officer Family History No Family History Records Found Relationship Condition Age at Onset Recorded Date/T [...] m ellitus: Father(V18.0, Z83.3) Status:Active Advance Directives No Advanced Directives Records Found Advance Directive Response Recorded Date/ Time Advance Directives No August 2:30pm Chief Complaint Hospital f/u: 'doing good'* HECTOR GASPAR is being seen for pre-operative clearance. * 62-year-old gentleman here for preoperative risk assessment and clearance at the request of Dr. Campos for endobronchial biopsy to be performed in mid December. 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 * Based on current guidelines and most recent literature, this is an appropriate indication to withdraw antiplatelet therapy and proceed with urgent endobronchial biopsy for diagnostic purposes, notably his Trade stents that were recently placed have have [...] aortic aneurysm (AAA) without rupture, unspecified part ([facility]) Obstructive chronic bronchitis with exacerbation ([facility]) Obesity with body mass index (BMI) of 30.0 to 39.9 Chronic obstructive pulmonary disease, unspecified COPD type ([facility]) Procedures CT angiogram abdomen and pelvis Christopher Sewell MD [address] , [address] [address] Referral ID Status Reason Start Date Expiration Date V isits Requested Visits Authorized [id number] Pending Review 08/22/2023 08/21/2024 1 1 Reason *FU 07/28 5cm AAA - report scanned. Diagnosis 1 Abdominal aortic ane urysm (AAA) without rupture, unspecified part (I71.40) Referral Organization [facility] Referring Provider First Name Brock Referring Provider Last Name Ly Referring Provider Specialty Family [facility] Referred Organization [facility] Referred Provider Christopher Sewell Referred Address [address] [place], [place],[address] Referred Provider Specialty Vascular Mir michelle Referral Priority Routine General Notes Helen Mendez 09:16:43 AM >received today, attachments made, ntoes locked, referral faxed Clinical Notes p: [phone] f: [id number] Additional Source Comments Care Teams (unrecognized sec [...] Active Adi Campos MD Attending Provider Active [employer] Relationship Specialty Start Date End Date Brock Modi MD [address] [place] [address] PCP - General Family Medicine 09/03/21 [employer] Relationship Specialty Start Date End Date Brock Modi MD [address] [place] [address] PCP - General Family Medicine 09/03/21 [employer] Relationship Specialty Start Date End Date Brock Modi MD [address] [place], [place] [id number] PCP - General Family Medicine 09/03/21 [employer] Relationship Specialty Start Date End Date Brock Mdoi MD PCP - General 10/10/22 Goals (unrecognized section and content) Goals may be documented in a n alternate sectionNo InformationNo InformationNo InformationNo InformationNo InformationNo InformationNo InformationNo InformationNo InformationNo InformationNo InformationNo InformationNo InformationNo InformationNo InformationNo InformationNo InformationNo InformationNo InformationNo InformationNo InformationNo InformationNo InformationNot on filedocumented as of this encounterNot on filedocumented as of this encounterNot on filedocumented as of this encounterNo Information REASON FOR VISIT (unrecogniz ed section and content) Reason Comments Follow-up 6m Reason Comments Follow-up Yearly follow up. Te sting was in 08/2022. Specialty Diagnoses / Procedures Referred By Yang boothe Referred To Contact Vascular Surgery Diagnoses Abdominal aortic aneurysm (AAA) without rupture, unspecified part ([facility]) [place] [address] [place] [address] , [address] [address] Christopher Sewell MD [address] [place] [address] Referral ID Status Reason Start Date Expiration Date Visits Requested Visits Authorized [id number] Pending Review Specialty Services Required 3 07/21/2024 1 1 US resultTBHsleep apnea discussionrefillAlprazolamRecheck Right Knee* Reason for Visit: * Holter Monitor: * HECTOR is here for the application of a 48 hour Holter monitor. * Ordering Physician: JANINE CUNHA * Diagnosis: CAD SINUS PAUSE * [facility] equipment agreement signed. HECTOR understands monitor is to be returned on: 11-03-22 * Monitor number [id number] applied. * Holter monitor returned and downloaded. messagePulmonary Office NotesRef by Dr. Brock Modi for COPDST[facility] - HAD HEART ATTACKRight Knee PainCheck Upnot feeling back to normal- discussion (unrecognized sect ion and content) No Status Records FoundNo Status Records FoundNo Status Records FoundNo Status Records FoundNo Status Records FoundNo Status Records FoundNo Status Records Found INFORMATION SOURCE (unrecogn ized section and content) DATE CREATED AUTHOR 11/07/2022 [facility] DATE CREATED AUTHOR AUTHOR'S ORGANIZ ATION 11/12/2022 [facility] DATE CREATED AUTHOR AUTHOR'S ORGANIZ ATION 01/02/2023 [employer] DATE CREATED AUTHOR AUTHOR'S ORGANIZ ATION 04/09/2023 [facility] DATE CREATED AUTHOR AUTHOR'S ORGANIZ ATION 08/08/2023 [facility] DATE CREATED AUTHOR AUTHOR'S ORGANIZ ATION 09/15/2023 [facility] DATE CREATED AUTHOR AUTHOR'S ORGANIZ ATION 10/06/2023 [facility] FOR RECORDS PERTAINING TO PATIENTS WHO ARE [...] BE BASED ON THE PRIMARY CLINICAL RECORDS. [facility]. provides no warranty or guarantee of the accuracy or completeness of information in this document.
[2023-10-09 21:45] VITALS: BP 139/81; PULSE 75; RESP 20; TEMP 36.8; O2SAT 97; BMI 36.8
[2023-10-09 22:03] VITALS: RESP 20; O2SAT 94
--- NOTE | 2023-10-09 22:04 | ECG_ITS ---
[facility] Test Date: 2023-10-09 Pat Name: HECTOR HIGHTOWER Department: Room: - Gender: Male Skills Trainer: : 1960 Requested By: BROCK MODI Order Number: [id number] Reading MD: ALTAGRACIA MOJICA Measurements Intervals [place] Rate: 77 P: 4 MI: 162 QRS: 38 QRSD: 88 T: 37 QT: 370 QTc: 402 Interpretive Statements 1100 Sinus rhythm 1470 with occasional supraventricular premature complexes 3514 Cannot rule out inferolateral myocardial infarction, age undetermined 7300 Indeterminate axis 9150 abnormal ECG Electronically Signed On 10-10-2023 19:55:16 EDT by ALTAGRACIA MOJICA
[2023-10-09 22:26] LABS: Basophils Percent Auto 0.6 % (0.2-2.0); Eosinophils Absolute Auto 0.2 10^3/uL (0.0-0.7); Eosinophils Percent Auto 3.9 % (0.9-7.0); Hematocrit 36.4 % (42.0-54.0); Hemoglobin 12.1 g/dL (14.0-18.0); Immature Granulocytes Abs Auto 0.03 10^3/uL (0.00-0.03); Immature Granulocytes Pct Auto 0.6 % (0.0-0.5); Lymphocytes Absolute Auto 1.5 10^3/uL (1.2-3.8); Lymphocytes Percent Auto 28.9 % (20.5-60.0); Mean Corpuscular HGB Conc 33.2 g/dL (29.9-35.2); Mean Corpuscular Hemoglobin 30.9 pg (25.9-34.0); Mean Corpuscular Volume 93.1 fL (80.0-94.0); Mean Platelet Volume 9.4 fL (9.5-13.5); Monocytes Absolute Auto 0.8 10^3/uL (0.3-0.8); Monocytes Percent Auto 16.1 % (1.7-12.0); Neutrophils Absolute Auto 2.6 10^3/uL (1.4-6.5); Neutrophils Percent Auto 49.9 % (43.0-75.0); Platelet Count 228 10^3/uL (150-450); Red Blood Count 3.91 10^6/uL (4.70-6.10); Red Cell Distribution Width 13.2 % (11.0-15.0); White Blood Count 5.2 10^3/uL (4.0-11.0)
[2023-10-09] MEDS: 0.9 % SODIUM CHLORIDE 1,000 ML 999 ML IV (22:32)
[2023-10-09 22:37] LABS: Alanine Aminotransferase 35 U/L (16-63); Albumin Level 3.5 g/dL (3.4-5.0); Alkaline Phosphatase 64 U/L (46-116); Anion Gap 10.5; Aspartate Amino Transferase 24 U/L (15-37); BUN Creatinine Ratio 16.5; Bilirubin Total 0.4 mg/dL (0.2-1.0); Carbon Dioxide 27.8 mmol/L (21.0-32.0); Chloride 102 mmol/L (98-107); Estimated GFR (African America 54 (>=60); Estimated GFR (Non-African Ame 45 (>=60); Globulin 3.4 g/dL; Glucose 96 mg/dL (74-106); Potassium 4.3 mmol/L (3.5-5.1); Sodium 136 mmol/L (136-145); Total Protein 6.9 g/dL (6.4-8.2)
[2023-10-09 22:40] VITALS: BP 111/77; BP 117/81; BP 124/94; PULSE 68; PULSE 82; PULSE 85
[2023-10-09 23:30] VITALS: BP 106/67; PULSE 72; RESP 20; TEMP 36.7; O2SAT 97
[2023-10-09] MEDS: IPRATROPIUM/ALBUTEROL SULFATE 3 ML AMPUL.NEB IH (23:35)
[2023-10-09 23:36] VITALS: PULSE 71; RESP 18
--- NOTE | 2023-10-09 23:36 | ED.DIZZY1 ---
HPI - Dizziness General Chief Complaint: Dizziness Stated Complaint: DIZZY Time Seen by Provider: 10/09/23 21:39 Source: patient Mode of arrival: walk-in Limitations: no limitations History of Present Illness HPI Narrative: Patient suddenly got light-headed tonight while driving. He told us that he has not eaten today. He was concerned enough to come to the ED for evaluation. No recent injury to the head or neck, no recent illness/URI symptoms. No ear pain, sore throat, nasal congestion within the last two weeks. No headache ro blurred vision. No numbness, tingling weakness or paralysis. Able to ambulate normally and moving his head and changing position did not exacerbate the light headedness. Related Data Home Medications Medication Instructions Recorded Confirmed alprazolam 0.5 mg tablet 0.25 mg PO BID PRN anxiety 01/24/23 09/01/23 aspirin 81 mg chewable tablet 1 tab PO DAILY 01/24/23 10/09/23 atorvastatin 80 mg tablet 80 mg PO QPM 01/24/23 10/09/23 losartan 100 mg tablet mg 09/01/23 metoprolol tartrate 25 mg tablet 25 mg PO Q12H 09/01/23 10/09/23 spironolactone 25 mg tablet 25 mg PO DAILY 09/01/23 10/09/23 ticagrelor 90 mg tablet (Brilinta) mg 09/01/23 valsartan 160 mg tablet 160 mg PO DAILY 09/01/23 10/09/23 clopidogrel 75 mg tablet (Plavix) 75 mg PO DAILY 10/09/23 10/09/23 Previous Rx's Medication Instructions Recorded ondansetron 4 mg disintegrating 4 mg PO Q6H PRN nausea and 01/24/23 tablet vomiting #20 tabs ondansetron 4 mg disintegrating 4 mg PO Q8H PRN nausea and 06/23/23 tablet vomiting 4 days #14 tabs methylprednisolone 4 mg tablets in See Rx Instructions .Route 06/28/23 a dose pack (Medrol (Maury)) .COMPLEX #21 ea Allergies Allergy/AdvReac Type Severity Reaction Status Date / Time Penicillins Allergy Severe Verified 10/09/23 21:49 pneumonia shot AdvReac Intermediate Uncoded 10/09/23 21:49 PFSH PFS Medical History (Updated 10/09/23 @ 23:41 by Aime Barragan) Hypercholesterolemia ?E78.00 - Pure hypercholesterolemia, unspecified (ICD-10) COPD (chronic obstructive pulmonary disease) ?J44.9 - Chronic obstructive pulmonary disease, unspecified (ICD-10) Social History Smoking status: Current every day smoker Exam Narrative Exam Narrative: Nurses notes and vital signs reviewed and patient is not hypoxic. Afebrile General: Well-appearing and in no apparent distress. Skin: Warm, dry, no pallor noted. Head: Normocephalic, atraumatic. Neck: Supple, non-tender. No carotid bruits Eye: Pupils are equal, round and EOMI. No scleral icterus. No nystagmus Ears, Nose, Mouth, and Throat: TM are clear, no posterior oropharynx erythema or nasal mucosal hypertrophy, uvula is mid-line Oral mucosa is moist Cardiovascular: Regular Rate and Rhythm without murmur, gallop or rub. Respiratory: No accessory muscle use or respiratory distress. Lungs with scattered rhonchi and expiratory wheezing Musculoskeletal: normal ROM, no calf or popliteal tenderness, no lower extremity edema/swelling GI: Abdomen is soft, non-distended. Normal bowel sounds. No tenderness to palpation. No rebound, guarding, or rigidity noted. Neurological: A&O x4. No cranial nerve dysfunction observed. No truncal ataxia. Moves all extremities. Sensation intact. Psychiatric: Cooperative and interactive. Normal mood and affect. Constitutional Vital Signs, click to edit/add: Last Vital Signs Temp 98.1 F 10/09/23 23:30 Pulse 72 10/09/23 23:30 Resp 20 10/09/23 23:30 BP 106/67 10/09/23 23:30 Pulse Ox 97 10/09/23 23:30 O2 Del Method Room Air 10/09/23 22:03 Course Vital Signs Vital signs: Vital Signs Temperature 98.2 F 10/09/23 21:45 Pulse Rate 75 10/09/23 21:45 Respiratory Rate 20 10/09/23 21:45 Blood Pressure 139/81 10/09/23 21:45 Pulse Oximetry 97 10/09/23 21:45 Oxygen Delivery Method Room Air 10/09/23 21:45 Temperature 98.1 F 10/09/23 23:30 Pulse Rate 72 10/09/23 23:30 Respiratory Rate 20 10/09/23 23:30 Blood Pressure 106/67 10/09/23 23:30 Pulse Oximetry 97 10/09/23 23:30 Oxygen Delivery Method Room Air 10/09/23 22:03 MDM - Dizziness MDM Narrative Medical decision making narrative: Patient was placed on property assessment monitor and EKG obtained. Blood drawn and sent for evaluation. Orthostatics were negative. Patient received a liter of normal saline IV fluid. I offered to get him something to eat and he declined. He was also given a DuoNeb treatment as he has COPD and has some scattered rhonchi and expiratory wheezing. Blood tests unremarkable. EKG and vital signs without worrisome findings. Patient was given reassurance and discharged home. He told me he is going to go home and eat. I encouraged him to return to the emergency department for any worsening symptoms Lab Data Attestation: I reviewed the patient's lab results. Labs: Lab Results 10/09/23 Range/Units 22:10 WBC 5.2 (4.0-11.0) 10^3/uL RBC 3.91 L (4.70-6.10) 10^6/uL Hgb 12.1 L (14.0-18.0) g/dL Hct 36.4 L (42.0-54.0) % MCV 93.1 (80.0-94.0) fL MCH 30.9 (25.9-34.0) pg MCHC 33.2 (29.9-35.2) g/dL RDW 13.2 (11.0-15.0) % Plt Count 228 (150-450) 10^3/uL MPV 9.4 L (9.5-13.5) fL Neut % (Auto) 49.9 (43.0-75.0) % Lymph % (Auto) 28.9 (20.5-60.0) % [place] % (Auto) 16.1 H (1.7-12.0) % Eos % (Auto) 3.9 (0.9-7.0) % Baso % (Auto) 0.6 (0.2-2.0) % Neut # (Auto) 2.6 (1.4-6.5) 10^3/uL Lymph # (Auto) 1.5 (1.2-3.8) 10^3/uL [place] # (Auto) 0.8 (0.3-0.8) 10^3/uL Eos # (Auto) 0.2 (0.0-0.7) 10^3/uL Baso # (Auto) 0.0 (0.0-0.1) 10^3/uL Abs Immat Gran (auto) 0.03 (0.00-0.03) 10^3/uL Imm/Tot Granulo (auto) 0.6 H (0.0-0.5) % Sodium 136 (136-145) mmol/L Potassium 4.3 (3.5-5.1) mmol/L Chloride 102 (98-107) mmol/L Carbon Dioxide 27.8 (21.0-32.0) mmol/L Anion Gap 10.5 BUN 26.0 H (7.0-18.0) mg/dL Creatinine 1.58 H (0.70-1.30) mg/dL Est GFR ( Amer) 54 L (>=60) Est GFR (Non-Af Amer) 45 L (>=60) BUN/Creatinine Ratio 16.5 Glucose 96 (74-106) mg/dL Calcium 9.0 (8.5-10.1) mg/dL Total Bilirubin 0.4 (0.2-1.0) mg/dL AST 24 (15-37) U/L ALT 35 (16-63) U/L Alkaline Phosphatase 64 (46-116) U/L Total Protein 6.9 (6.4-8.2) g/dL Albumin 3.5 (3.4-5.0) g/dL Globulin 3.4 g/dL Albumin/Globulin Ratio 1.0 ECG Data Attestation: I personally reviewed and interpreted this ECG as follows: Interpretation: EKG interpretation: Emergency Department physician interpretation. Normal sinus rhythm at 77bpm. Indeterminate axis. Nonspecific ST-T wave changes. no ST segment elevation or depression. Discharge Plan Discharge Stand Alone Forms: Portal Instructions Chief Complaint: Dizziness Clinical Impression: Dizziness, COPD (chronic obstructive pulmonary disease) Time of Disposition Decision: 23:41 Prescriptions / Home Meds: No Action alprazolam 0.5 mg tablet 0.25 mg PO BID PRN (Reason: anxiety) aspirin 81 mg tablet,chewable 1 tab PO DAILY atorvastatin 80 mg tablet 80 mg PO QPM ondansetron 4 mg tablet,disintegrating 4 mg PO Q6H PRN (Reason: nausea and vomiting) Qty: 20 0RF methylprednisolone [Medrol (Maury)] 4 mg tablets,dose pack See Rx Instructions .ROUTE .COMPLEX Qty: 21 0RF Rx Instructions: Taper as directed spironolactone 25 mg tablet 25 mg PO DAILY losartan 100 mg tablet valsartan 160 mg tablet 160 mg PO DAILY Rx Instructions: HS metoprolol tartrate 25 mg tablet 25 mg PO Q12H Brilinta 90 mg tablet ondansetron 4 mg tablet,disintegrating 4 mg PO Q8H PRN (Reason: nausea and vomiting) 4 Days Qty: 14 0RF clopidogrel [Plavix] 75 mg tablet 75 mg PO DAILY Instructions: COPD (Chronic Obstructive Pulmonary Disease) (ED), Dizziness (ED) Referrals: Cielo Devries MD [Primary Care Provider] - 1 week
== END 2023-10-09 23:56 | disposition home or self-care (01) ==
LOC: ER 21:37
PROVIDERS: Emergency Provider Emergency Medicine; PCP Family Medicine
DX: R42 Dizziness and giddiness (principal); J44.9 Chronic obstructive pulmonary disease, unspecified; E78.00 Pure hypercholesterolemia, unspecified; F17.210 Nicotine dependence, cigarettes, uncomplicated; Z79.82 Long term (current) use of aspirin; Z79.899 Other long term (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
CPT/HCPCS: 36415; 80053; 85025; 93005; 94640; 96360; 99285

== ENCOUNTER 2024-01-05 14:48 | Outpatient (OUT) | payer OTHER, SELFPAY ==
--- NOTE | 2024-01-05 14:53 | US_ITS ---
[place] [id number] Patient Name: HECTOR HIGHTOWER MRN: [id number] date: 1960 Sex: M Assigned Patient Location: US Current Patient Location: Accession/Order Number: [id number] Exam Date: 01/05/2024 15:00 Report Date: 01/06/2024 07:14 At the request of: BROCK MODI Procedure: US venous doppler LE RT EXAM: US venous doppler LE RT HISTORY: Pain in right leg M79.604 COMPARISON: None. TECHNIQUE: Grayscale, color and Doppler FINDINGS: Region: Right leg Thrombus: None Flow: Normal Augmentation: Normal Compressibility: Normal Other: 5.0 x 2.1 x 1.0 cm fluid collection medial popliteal fossa consistent with a popliteal cyst US/US venous doppler LE RT IMPRESSION: No deep or superficial vein thrombus identified in the right leg Electronically authenticated by: TEE COLLAZO Date: 01/06/2024 07:14
== END 2024-01-05 14:49 | disposition home or self-care (01) ==
PROVIDERS: PCP Family Medicine; Visit Provider Family Medicine
DX: M79.604 Pain in right leg (principal); M71.21 Synovial cyst of popliteal space [Baker], right knee
CPT/HCPCS: 93971

== ENCOUNTER 2024-03-14 13:58 | Outpatient (OUT) | payer OTHER, SELFPAY ==
--- NOTE | 2024-03-14 14:00 | US_ITS ---
[address] [address] Patient Name: HECTOR HIGHTOWER MRN: [id number] date: 1960 Sex: M Assigned Patient Location: [place] Current Patient Location: Accession/Order Number: [id number] Exam Date: 03/14/2024 14:01 Report Date: 03/15/2024 10:27 At the request of: GADIEL ARMENTA Procedure: US carotid duplex BI DUPLEX ULTRASOUND EXAMINATION OF THE CAROTID ARTERIES. COMPARISON: None. HISTORY / INDICATIONS: Carotid bruit. TECHNIQUE: Bilateral common carotid arteries, extracranial internal and external carotid arteries are evaluated with driscoll-scale imaging, color Doppler, and spectral analysis according to a standard protocol. ICA-CCA ratios are calculated with dental detail representative peak-systolic velocities and recorded. Vertebral arteries are evaluated in one segment to evaluate for patency and character of flow. Comparison with previous evaluation is performed when available. Unless otherwise specified, all velocities are measured in cm/sec. Carotid stenosis is reported according to validated velocity parameters, similar to NASCET criteria. FINDINGS: Right Carotid: Mild plaque was noted. Velocity measurements as follows: Internal Carotid Artery 100/43, 64/27, and 62/29. ICA to CCA ratio: 1.6. Left Carotid: Mild plaque was noted. Velocity measurements as follows: Internal Carotid Artery 81/34, 72/28, and 90/27. ICA to CCA ratio: 1.5. Antegrade flow was seen in both vertebral arteries. CONCLUSION: 1. Less than 50% stenosis of the right ICA. 2. Less than 50% stenosis of the left ICA. 3. Vertebral arteries are patent and demonstrate antegrade flow. Electronically authenticated by: Judy TYLER Date: 03/15/2024 10:27
== END 2024-03-14 13:59 | disposition home or self-care (01) ==
LOC: US 13:58
PROVIDERS: PCP Family Medicine; Visit Provider Student in an Organized Health Care Education/Training Program
DX: R09.89 Other specified symptoms and signs involving the circulatory and respiratory systems (principal)
CPT/HCPCS: 93880

== ENCOUNTER 2024-03-30 13:43 | Outpatient (OUT) | payer OTHER, SELFPAY ==
--- NOTE | 2024-03-30 14:00 | CA_ITS ---
Patient Name: HECTOR HIGHTOWER MR#: [id number] : 1960 Exam Date: 03/30/2024 Ordering Doctor: GADIEL ARMENTA M.D. ECHOCARDIOGRAM REPORT PROCEDURE: CA ECHO DOPPLER COMPLETE INDICATIONS: Bilateral carotid bruits, abdominal aortic aneurysm, smoker, [place], cardiac stents, hypertension COMPARISON: None. DESCRIPTION: COMPLETE ECHOCARDIOGRAM Real-time transthoracic echocardiography with 2D, M-mode, spectral and color flow Doppler performed. QUALITY: Technical quality was good. LEFT VENTRICLE: Normal chamber size. Mildly increased left ventricular wall thickness. Velocities across the left ventricular outflow are severely increased; peak velocity 6.96 m/s. Peak gradient 193 mmHg with Valsalva. This may be due to hyperdynamic left ventricular systolic function. LV EF: Global left ventricular systolic function is hyperdynamic; visually estimated ejection fraction is 70 to 75%. DIASTOLIC: Diastolic function is indeterminate. ATRIAL SEPTUM: Visually appears intact. LEFT ATRIUM: Normal chamber size. RIGHT ATRIUM: Normal chamber size. RIGHT VENTRICLE: Normal chamber size. Normal right ventricular systolic function. TRICUSPID VALVE: Normal mobility and thickness. No stenosis with trivial regurgitation. Doppler studies reveal moderately (45-60) elevated right sided pressures. RVSP 47 mmHg MITRAL VALVE: Normal mobility and thickness. No evidence of mitral valve stenosis. There is no mitral annular calcification. No mitral regurgitation. AORTIC VALVE: Normal trileaflet appearance. Normal leaflet mobility. Unable to assess aortic valve stenosis due to contamination of the sigmoid from the left ventricular outflow tract envelope; the leaflets appear to open and close appropriately. Multi focal calcifications. No aortic regurgitation. AORTIC ROOT: Aortic root and ascending aorta are dilated. PULMONIC VALVE: Normal thickness and mobility. No stenosis. No regurgitation. PERICARDIUM: Anterior free space; trivial effusion versus fat pad. IVC: IVC is normal in size, does not collapse. CONCLUSION: 1. Global left ventricular systolic function is hyperdynamic; visually estimated ejection fraction is 70 to 75% 2. The right ventricle is normal in size and systolic function 3. Mildly increased left ventricular wall thickness 4. Diastolic function is indeterminate 5. Moderately elevated right ventricular systolic pressure; RVSP 47 mmHg 6. Elevated velocities across the left ventricular outflow tract are likely related to hyperdynamic state; would repeat an echocardiogram once the patient's volume status and/or other causes for hyperdynamic left ventricular function have resolved Adult Echocardiography Procedure Report Left Ventricle LVEDD (3.7 - 5.6 cm): 4.33 cm LVESD (2.2 - 4.0 cm): 2.63 cm LVIVS thickness (0.6 - 1.2 cm): 1.22 cm LVPW thickness (0.5 - 1.0 cm): 1.15 cm e': 0.08 m/s E - e': 7.07 LVOT Max Gradient: 21.37 mm[Hg] LVOT Area (cm2): 2.31 m/s Peak Velocity (LVOT): 2.31 m/s Mean Velocity (LVOT): 1.51 m/s LVOT Diameter 2.64 cm Left Atrium LA Volume Index (2D A2C): 29.38 ml/m2 Left Atrium Systolic Dimension: 3.36 cm Mitral Valve MV E to A Ratio: 0.61, 0.55 Mitral Valve A-Wave Peak Velocity: 0.94 m/s Mitral Valve E-Wave Peak Velocity: 0.55 m/s Right Ventricle Aorta AO Root Diam: 4.45 cm Ascending Ao Diam: 3.52 cm Aortic Valve AoV Area (Peak Michael): 3.05 cm2, 3.16 cm2 AoV Area (VTI): 3.50 cm2, 3.46 cm2 Peak Velocity(Antegrade Flow): 4.00 m/s, 4.29 m/s Peak Gradient(Antegrade Flow): 64.14 mm[Hg], 73.62 mm[Hg] Mean Velocity(Antegrade Flow): 2.46 m/s, 2.17 m/s Mean Gradient(Antegrade Flow): 30.28 mm[Hg], 27.35 mm[Hg] Velocity Time Integral: 61.30 cm, 59.80 cm Tricuspid Valve Peak Velocity (Regurgitant Flow): 3.14 m/s Pulmonic Valve Mean Gradient: 2.31 mm[Hg] Mean Velocity: 0.69 m/s Peak Velocity: 1.06 m/s, 1.09 m/s Peak Gradient: 4.76 mm[Hg], 4.53 mm[Hg] Right Atrium Right Atrium Systolic Pressure: 47.46 ml, 47.46 ml Dictated by: Megan So M.D. on 03/31/2024 at 15:02 Approved by: Megan So M.D. on 03/31/2024 at 15:09
== END 2024-03-30 13:44 | disposition home or self-care (01) ==
LOC: CARD 13:43
PROVIDERS: PCP Family Medicine; Visit Provider Student in an Organized Health Care Education/Training Program
DX: I71.43 Infrarenal abdominal aortic aneurysm, without rupture (principal); R09.89 Other specified symptoms and signs involving the circulatory and respiratory systems; F17.210 Nicotine dependence, cigarettes, uncomplicated
CPT/HCPCS: 93306

== ENCOUNTER 2024-05-07 19:42 | Emergency (ER) | payer OTHER, SELFPAY ==
[2024-05-07] VITALS (11 sets, daily range): BP systolic 142–169; BP diastolic 93–102; PULSE 80–93; TEMP 36.9; O2SAT 91–100; BMI 38.4
--- OUTSIDE RECORDS SUMMARY | 2024-05-07 19:48 | XMS_ITS | CCD ---
Author Organization [facility] Care Team Providers Care Lead Section Supervisor Name Role Phone DO Wagner Marrufo Attending Provider Brock Modi Unavailable Wagner Marrufo Unavailable DO Wagner Marrufo Attending Provider [phone] MD Brock Modi Primary Care Provider [phone] MD Filipe [facility] [[email or web address]] Admit Provider [phone] MD Barbara Rivero Attending Provider [phone] Brock Modi Unavailable Unavailable Unavailable Adi Campos Unavailable ZELALEM Faustin Attending Provider MD Adi Campos Attending Provider KULDEEP, DR CAR Torres Attending Unavailable KULDEEP, DR CAR Torres Admitting Unavailable [facility] ., DR JUSTIN Urbano Consulting Unavailable LY, DR [...] LY, DR BROCK Urbano Primary Care Unavailable AHADÁN, CYNTHIA Consulting Unavailable LONNIE, DR ARLIN Simpson Consulting Unavailable LONNIE, DR ARLIN Simpson Attending Unavailable LONNIE, DR ARLIN Simpson Admitting Unavailable LY, DR BROCK Urbano Primary Care Unavailable DAREK MARX Consulting Unavailable EBEN, COLIN Consulting Unavailable EBEN, COLIN Attending Unavailable EBEN, COLIN Admitting Unavailable LY, DR BROCK Urbano Primary Care Unavailable AHDOOT, CYNTHIA Consulting Unavailable EBEN, COLIN Consulting Unavailable EBEN, COLIN Attending Unavailable EBEN, COLIN Admitting Unavailable MODI, DR BROCK Urbano Primary Care Unavailable XIOMARA SCHNEIDER Consulting Unavailable HAY ., DR LUIS Consulting Unavailable HAY ., [...] ilsobeida Modi, Dr. Brock Case Primary Care Janine Brown Attending Unavailable Janine Cunha Referring Unavailable Ly, Dr. Brock Case Primary Care Martin Modi, Dr. Brock Case Primary Care Janine Brown Attending Unavailable Janine Cunha Referring Unavailable Ly, Dr. Brock Case Primary Care Martin Webber, Dr. Alok Gonzalez Attending Unava ilable Akbar, Dr. Alok Gonzalez Referring Unava ilable Ly, Dr. Brock Case Primary Care Unav ailable CHRISTOPHER SEWELL Attending Unavailable CHRISTOPHER SEWELL Referring Unavailable BROCK MODI Primary Care Unavailable Brock Modi MD Primary Care Provider Brock Modi MD Primary Care Provider ALOK WEBBER Attending Unavailable BROCK MODI Primary Care Unavailable CHRISTOPHER SEWELL Referring Unavailable BROCK MODI Primary Care Unavailable CHRISTOPHER SEWELL Referring Unavailable BROCK MODI Primary Care Unavailable Allergies Allergy Classification Reported Allergen(s) Allergy Type Date of Onset Reaction(s) Facility (20 sources) Ciprofloxacin Drug Allergy 10-26-19 24 Nausea & Blurred vision, Comment:nausea and blurred vision [facility] (20 sources) Substance with penicillin structure and antibacterial mechanism of action (substance) Drug allergy Edema, Unknown [facility] Atticous Other (20 sources) Pneumococcal 7-Zulma Conj Vacc Drug allergy undefined, Comment:pneumo nococcal 23 [facility] Other (20 sources) Penicillins; Translations: [Penicillins] Propensity to adverse reactions 05-29-20 13 Swelling, [facility] (15 sources) Pneumococcal vaccine; Translations: [pneumococcal vaccine] Drug Allergy 08-08-19 22 Nausea And Vomiting, [facility] (8 sources) Pneumococcal vaccine; Translations: [Pneumococcal Vaccines] Drug Allergy [place] [address] DO Work Phone: (2 sources) Penicillin Drug Allergy 07-29-19 16 Unknown Fresh ! Other (2 sources) patient allergy list reviewed by nurse or physicia Propensity to adverse reactions 07-29-19 16 Comment:Done [facility] Attic[facility] Other (2 sources) Allergies Reconciled Propensity to adverse reactions Unknown Fresh ! Other (5 sources) Ciprofloxacin; Translations: [CIPROFLOXACIN HCL] Drug Allergy 08-08-19 22 [facility] (4 sources) pneumococcal 7-valent conjugate to Allergy to substance 10-26-19 24 Comment:pneumo nococcal 23 [facility] Medications Current Medications Medication Drug Class(es) Dates Sig (Normalized) Sig (Original) Yvette VALERO - (5 sources) Start: 07-30-2022 Yvette MV - as directed Jul, Active aspirin 81 mg chewable tablet (20 sources) Platelet Aggregation Inhibitor, Nonsteroidal Anti-inflammatory Drug Start: 10-12-2022 take 1 tablet by mouth once daily Aspirin (Children's Aspirin) 81 mg Tablet,Chewable Active 81 MG PO Daily 90 90 October 12, 2022 12:00am take 1 tablet by mouth once ailyn y aspirin 81 mg EC tablet Take 1 tablet (81 mg) by mouth once daily. 0 Active atorvastatin 80 mg oral tablet (16 sources) HMG-CoA Reductase Inhibitor Start: 10-26-2023 take 80 mg by mouth once daily at bedtime Atorvastatin Active 80 MG PO Daily at bedtime October 26, 2023 12:00am Start: 2023 take 1 tablet by da th once daily at bedtime atorvastatin (Lipitor) 80 mg tablet Indications: Atherosclerotic heart disease of [place] coronary artery without angina pectoris TAKE 1 [...] 07/22/2021 Active clopidogrel 75 mg oral tablet (5 sources) P2Y12 Platelet Inhibitor Start: 09-14-2023 End: 09-13-2024 take 75 mg by mouth once daily Clopidogrel Active 75 MG PO Daily October 26, 2023 12:00am meloxicam 15 mg oral tablet (8 sources) Nonsteroidal Anti-inflammatory Drug Start: 07-08-2021 meloxicam (MOBIC) 15 mg tablet nebulizer machine (5 sources) nebulizer breanne e 1 kit inhalation 4 times daily Active Nitro Sublingual 0.4 0.4mg (20 sources) Nitro Sublingual 0.4 0.4mg 1 Sublingual Every 5min x3 Active nitroglycerin 0.4 mg sublingual tablet (16 sources) Nitrate Vasodilator Start: 10-12-2022 Nitroglycerin Active 0.4 MG SUBLINGUAL Q5M October [...] Start: 11-12-2022 take 2 tablets by mo [facility] every twenty-four hours predniSONE 20 MG [...] as needed Inhalation every 4 hrs Active sulfamethoxazole 800 mg / trimethoprim 160 mg oral tablet (3 sources) Dihydrofolate Reductase Inhibitor Antibacterial, Sulfonamide Antimicrobial take 1 tablet by mouth every twelve hours Bactrim DS 800-160 MG 1 tablet Orally Twice a day for 5 days Active Trelegy Ellipta 100-62.5-25 MCG/INH (8 sources) Start: take 1 puff(s) by inhalation once daily Trelegy Ellipta 100-62.5-25 MCG/INH 1 puff Inhalation Once a day for 30 days Sep, Active valsartan 40 mg oral tablet (20 sources) Angiotensin 2 Receptor Maryjane Start: take 1 tablet by mouth once daily Valsartan Active 0 .ROUTE .COMPLEX 90 February 17, 2024 11:37am TAKE 1 TABLET BY MOUTH EVERY DAY Start: 10-26-2023 End: 02-17-2024 take 40 mg by mouth once daily Valsartan Discontinued 40 MG PO Daily November 17, 2023 10:48pm February 17, 2024 11:37am Start: 10-04-2023 End: 10-26-2023 take 80 mg by mouth once daily Valsartan Discontinued 80 MG PO Daily October 04, 2023 12:00am October 26, 2023 3:05pm Start: 10-13-2022 End: 10-04-2023 take 160 mg by mouth once daily at bedtime Valsartan Discontinued 160 MG PO Daily at bedtime October 13, 2022 12:00am October 04, 2023 3:37pm Completed/Discontinued Medications Medication Drug Class(es) Dates Sig (Normalized) Sig (Original) acetaminophen 325 mg oral tablet (10 sources) Start: 10-10-2022 End: 10-01-2023 take 2 tablets by mouth every six hours Acetaminophen (Tylenol) 325 mg Tablet Discontinued 650 MG PO Q6H October 10, 2022 12:00am October 01, 2023 3:07pm acetaminophen 32 5 mg capsule Take by mouth. 0 Active [id number] 200 actuat albuterol 0.09 mg/actuat metered dose inhaler (20 sources) beta2-Adrenergic Agonist Start: 10-10-2022 End: 10-01-2023 take 1 puff(s) by inhalation every four hours Albuterol Sulfate Discontinued 1 PUFF INHALATION Q4H October 10, 2022 12:00am October 01, 2023 3:07pm Start: 07-21-2021 albuterol (PRO VENTIL HFA;VENTOLIN HFA) [...] 7 Active take 1 puff(s) by mo msh every four hours as needed Albuterol Sulfate HFA 108 (90 Base) MCG/ACT INHALE 1 PUFF BY MOUTH EVERY 4 HOURS NEEDED for 30 Active Albuterol Sulfat e (2.5 MG/3ML) 0.083% 3 mL as needed Inhalation every 6 hrs; shortness of breath or wheezing Active ALPRAZolam 1 mg oral tablet (20 sources) Benzodiazepine Start: 10-01-2023 End: 02-03-2024 take 1 mg by mouth twice daily Alprazolam Discontinued 1 MG PO Twice daily 60 October 04, 2023 10:17am October 04, 2023 10:29am Start: 09-03-2023 take 1 tablet by da twice daily [...] day prn for 30 days November, Active doxycycline hyclate 100 mg delayed release oral tablet (7 sources) Tetracycline-class Drug take 1 tablet by mouth every twelve hours Doxycycline Hyclate 100 MG 1 tablet Orally Twice a day for 10 days Not-Taking/PRN Fluticasone Propionate (12 sources) Corticosteroid Start: 10-11-19 End: 10-14-19 Fluticasone Propionate Discontinued 1 INH INHALATION Twice daily October 10, 2022 12:00am October 13, 2022 12:26pm Start: 07-30-2022 take 1 puff(s) by in halation twice daily Flovent Diskus 100 MCG/ACT 1 puff Inhalation Twice a day for 30 days Jul, Not-Taking Fluticasone Propion-Salmeterol (20 sources) Corticosteroid, beta2-Adrenergic Agonist Start: 10-13-2022 End: 10-01-2023 Fluticasone Propion-Salmeterol (Advair Diskus) 250-50 mcg/dose blister with device Discontinued 1 INH INHALATION Twice daily 60 October 13, 2022 12:00am October 01, 2023 3:07pm Start: 10-13-2022 Fluticasone Pr opion-Salmeterol (Advair Diskus) 250-50 mcg/dose blister with device [...] 1 puff Inhalation Twice a day Active 30 actuat fluticasone furoate 0.1 mg/actuat / [...] mouth in the morning. 0 02/09/2022 Active methylPREDNISolone 4 mg oral tablet (4 sources) Corticosteroid Start: 10-04-2023 End: 10-26-2023 take 1 tablet by mouth once Methylprednisolone (Medrol (Maury)) 4 mg tablets,dose pack Discontinued 0 PO per package directions October 04, 2023 12:00am October 26, 2023 2:42pm PO PER PKG DIR for 6 days metoprolol tartrate 25 mg oral tablet (8 sources) beta-Adrenergic Maryjane Start: 10-26-2023 End: 02-24-2024 take 25 mg by mouth twice daily Metoprolol Tartrate Discontinued 25 MG PO Twice daily October 26, 2023 12:00am February 24, 2024 2:21pm Start: 12-24-2022 take 1 tablet by da th twice daily Metoprolol Tartrate 25 MG Oral Tablet Take 1 tablet twice a day Quantity: 180 Refills: 3 Ordered: 28-Jan-2023 Alok Webber DO Start : 24-Dec-2022 Active promethazine hydrochloride 12.5 mg oral tablet (5 sources) Phenothiazine take 1 tablet by mouth four times daily as needed Promethazine HCl 12.5 MG 1 tablet as needed Orally 4 times per day; nausea and vomiting Not-Taking spironolactone 25 mg oral tablet (20 sources) Aldosterone Antagonist Start: End: take 25 mg by mouth once daily in the morning Spironolactone Discontinued 25 MG PO Every morning 30 30 October 13, 2022 12:00am October 26, 2023 3:02pm ticagrelor 90 mg oral tablet (20 sources) Start: End: take 1 tablet by mouth once Ticagrelor (Brilinta) 90 mg tablet Discontinued 90 MG PO Once October 04, 2023 3:21pm December 13, 2023 2:05pm Start: 06-27-2023 take 1 tablet by mouth once BR ILINTA 90 mg tablet Take 1 tablet (90 mg total) by mouth every 12 (twelve) hours. 0 06/27/2023 Active Start: 10-12-2022 End: 10-04-2023 take 1 tablet by mouth twice daily Ticagrelor (Brilinta) 90 mg Tablet Discontinued 90 MG PO Twice daily 180 90 October 12, 2022 12:00am October 04, 2023 3:22pm Brilinta 90mg [facility] as directed Active triamcinolone acetonide 40 mg/ml injectable suspension (20 sources) Corticosteroid Start: 09-09-2022 Kenalog-40 November, 40 mg Problems Active Problems Problem Classification Problem Date Documented Date Episodic/Chronic Acute myocardial infarction (12 sources) Myocardial infarction; Translations: [Non-ST elevation (NSTEMI) [...] uncomplicated] Onset: 03-05-2022 03-05-2022 Chronic Cardiac dysrhythmias (10 sources) EKG: ventricular tachycardia; Translations: [Ventricular tachycardia seen on imaging nurse] 10-11-2022 Chronic Chronic obstructive pulmonary disease and bronchiectasis (20 sources) Acute exacerbation of chronic obstructive airways disease; Translations: [Chronic obstructive pulmonary disease with (acute) exacerbation] Onset: 07-29-2015 Chronic Chronic obstructive pulmonary disease and bronchiectasis (12 sources) Bronchitis; Translations: [Bronchitis, not specified as acute or chronic] Episodic Conduction disorders (20 sources) Complete atrioventricular block; Translations: [Atrioventricular block, complete] Onset: 10-10-2022 10-11-2022 Chronic Coronary atherosclerosis and other heart disease (20 sources) Coronary arteriosclerosis; Translations: [Atherosclerotic heart disease of [place] coronary artery without angina pectoris] Onset: 10-28-2022 [...] 03-16-2019 Chronic Other aftercare (1 source) Other sourcing consultant (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; Translations: [OTH CORRECTION CURRENT DRUG THERAPY] Onset: 10-13-2022 Episodic Other circulatory disease (2 sources) Elevated blood-pressure reading without diagnosis of hypertension; Translations: [Elevated blood-pressure reading, without diagnosis of hypertension] Episodic Other connective tissue disease (20 sources) Muscle pain; Translations: [Myalgia, unspecified site] 10-01-2023 Episodic Other connective tissue disease (20 sources) [...] muscle spasm; Translations: [Muscle spasm] Episodic Other connective tissue disease (2 sources) Pain in right lower limb; Translations: [Pain in right leg] 01-05-2024 Episodic Other connective tissue disease (2 sources) Pain in right leg; Translations: [Pain in limb] 01-05-2024 Episodic Other lower respiratory disease (7 sources) Hypoxemia; Translations: [Hypoxemia] 10-11-2022 Episodic Other [...] lung field] Episodic Other non-traumatic joint disorders (6 sources) Pain in right knee; Translations: [Right knee pain] Episodic Other non-traumatic joint disorders (2 sources) [...] Episodic Other nutritional; endocrine; and metabolic disorders (20 sources) Obesity; Translations: [Obesity, unspecified] 10-01-2023 Chronic Other nutritional; endocrine; and metabolic disorders [...] [Pneumonia, unspecified organism] Episodic Residual codes; unclassified (7 sources) Sleep apnea; Translations: [Sleep apnea, unspecified] 10-11-2022 Chronic Residual codes; unclassified (4 sources) Sleep apnea, unspecified; Translations: [Unspecified sleep apnea] Onset: 10-10-2022 10-13-2022 Chronic Residual codes; unclassified (20 sources) Sleep disorder; Translations: [Other sleep disorders] Chronic Residual codes; unclassified (20 sources) Obstructive sleep apnea syndrome; Translations: [Obstructive sleep apnea (adult) (pediatric)] 10-01-2023 Chronic Residual codes; unclassified (2 sources) Obstructive sleep apnea (adult) (pediatric) Chronic Residual codes; unclassified (1 source) Other sleep disorders Chronic Residual codes; unclassified (3 sources) Dyssomnia; Translations: [Other sleep disorders] Onset: 07-29-2015 03-05-2022 Chronic Residual codes; unclassified (7 sources) Tobacco use; Translations: [Tobacco use disorder] Onset: 10-10-2022 Episodic Residual codes; unclassified (12 sources) Tobacco user; Translations: [Tobacco use] Onset: [...] Range Facility CT CTA ABD AND PELVISon 02-23 CT CTA ABD AND PELVIS CT CTA ABD AND PEL VIS Abdominal aortic aneurysm Comparison October 03 Procedure: Multidetector CT Angiogram performed with IV [...] the source data findings. Right lower lobe bronchiectasis is unchanged and appears be a chronic process. Centrilobular and unchanged Abdominal parenchymal organs show no acute findings Bladder grossly unremarkable No abdominal or pelvic masses or adenopathy within limitations of arterial phase technique Origins of celiac trunk SMA and renal arteries are patent with some scattered calcifications. There are 2 right renal arteries and 2 left renal arteries. Tortuous infrarenal abdominal aortic aneurysm only slightly larger than the prior study at 52.1 mm and containing a large amount of mural thrombus. No dissection. Left common iliac artery aneurysm unchanged at 23.7 mm and right common iliac artery aneurysm slightly larger measuring 20.1 mm Bilateral fusiform dilatation of the common femoral arteries measuring 20 mm on the right and 18 mm on the left unchanged IMPRESSION: Stable right lower lobe bronchiectasis Infrarenal abdominal aortic aneurysm minimally larger than prior study measuring 52.1 mm with aneurysmal dilatation of bilateral common iliac arteries and bilateral common femoral arteries similar prior study. All CT scans at this facility use dose modulation, iterative reconstruction, and/or weight based dosing when appropriate to reduce radiation dose to as low as reasonably achievable. Finalized by Ryan Marie MD on 03/07/2024 12:12 PM Normal [facility] Basophils Auto (Bld) [#/Vol] on 10-09-2023 Basophils (Bld) [#/Vol] 0.0 10 3/uL 0.0-0.1 [facility] Basophils/100 WBC Auto (Bld) on 10-09-2023 Basophils/100 WBC (Bld) 0.6 % 0.2-2.0 [facility] Eosinophils/100 WBC Auto (Bl d)on 10-09-2023 Eosinophils/100 WBC (Bld) 3.9 % 0.9-7.0 [facility] Erythrocyte distribution wid th Auto (RBC) [Ratio]on 10-09-2023 Erythrocyte distribution width (RBC) [Ratio] 13.2 % 11.0-15.0 [facility] Estimated glomerular filtrat ion rate (GFR) non- Americanon 10-09-2023 GFR/1.73 sq M.predicted among non-blacks MDRD (S/P/Bld) [Vol rate/Area] 45 mL/min/{1.73_m2} >=60 [facility] Globulin Calc (S) [Mass/Vol] on 10-09-2023 Globulin (S) [Mass/Vol] 3.4 g/dL [facility] Hematocrit Auto (Bld) [Volum e fraction]on 10-09-2023 Hematocrit (Bld) [Volume fraction] 36.4 % 42.0-54.0 [facility] Hemoglobin [Mass/volume] in Bloodon 10-09-2023 Hemoglobin (Bld) [Mass/Vol] 12.1 g/dL 14.0-18.0 [facility] Laboratory - Chemistry and C hemistry - challengeon 10-09-2023 Albumin [Mass/Vol] 3.5 g/dL 3.4-5.[address] [facility] ALP [Catalytic activity/Vol] 64 U/L 46-116 [facility] ALT [Catalytic activity/Vol] 35 U/L 16-63 [facility] AST [Catalytic activity/Vol] 24 U/L 15-37 [facility] Bilirubin [Mass/Vol] 0.4 mg/dL 0.2-1.0 [facility] Calcium [Mass/Vol] 9.0 mg/dL 8.5-10.[address] [facility] Chloride [Moles/Vol] 102 mmol/L 98-107 [facility] CO2 [Moles/Vol] 27.8 mmol/L 21.0-32.0 [facility] Creatinine [Mass/Vol] 1.58 mg/dL 0.70-1.30 [facility] GFR/1.73 sq M.predicted MDRD (S/P/Bld) [Vol rate/Area] 54 mL/min/{1.73_m2} >=60 [facility] Glucose [Mass/Vol] 96 mg/dL 74-[address] [facility] Potassium [Moles/Vol] 4.3 mmol/L 3.5-5.1 [facility] Protein [Mass/Vol] 6.9 g/dL 6.4-8.[address] [facility] Sodium [Moles/Vol] 136 mmol/L 136-[address] [facility] Urea nitrogen [Mass/Vol] 26.0 mg/dL 7.0-18.0 [facility] Urea nitrogen/Creatinine [Mass ratio] 16.5 mg/mg [facility] Laboratory - Hematology and Cell countson 10-09-2023 Immature granulocytes/100 WBC (Bld) 0.6 % 0.0-0.5 [facility] Leukocytes [#/volume] correc kal for nucleated erythrocytes in Blood by Automated counon 10-09-2023 WBC corrected for nucl RBC Auto (Bld) [#/Vol] 5.2 10 3/uL 4.0-11.0 [facility] Lymphocytes Auto (Bld) [#/Vo l]on 10-09-2023 Lymphocytes (Bld) [#/Vol] 1.5 10 3/uL 1.2-3.8 [facility] Lymphocytes/100 WBC Auto (Bl d)on 10-09-2023 Lymphocytes/100 WBC (Bld) 28.9 % 20.5-60.0 [facility] MCH Auto (RBC) [Entitic mass ]on 10-09-2023 MCH (RBC) [Entitic mass] 30.9 pg 25.9-34.0 [facility] MCHC Auto (RBC) [Mass/Vol]on 10-09-2023 MCHC (RBC) [Mass/Vol] 33.2 g/dL 29.9-35.2 [facility] MCV Auto (RBC) [Entitic vol] on 10-09-2023 MCV (RBC) [Entitic vol] 93.1 fL 80.0-94.0 [facility] Monocytes Auto (Bld) [#/Vol] on 10-09-2023 Monocytes (Bld) [#/Vol] 0.8 10 3/uL 0.3-0.8 [facility] Monocytes/100 WBC Auto (Bld) on 10-09-2023 Monocytes/100 WBC (Bld) 16.1 % 1.7-12.0 [facility] Neutrophils Auto (Bld) [#/Vo l]on 10-09-2023 Neutrophils (Bld) [#/Vol] 2.6 10 3/uL 1.4-6.5 [facility] Neutrophils/100 WBC Auto (Bl d)on 10-09-2023 Neutrophils/100 WBC (Bld) 49.9 % 43.0-75.0 [facility] No Panel Informationon 10-08 Eosinophils # (Auto) 0.2 10 3/uL 0.0-0.7 [facility] Immature Granulocyte # (Auto) 0.03 10 3/uL 0.00-0.03 [facility] Platelet mean volume Auto (B ld) [Entitic vol]on 10-09-2023 Platelet mean volume (Bld) [Entitic vol] 9.4 fL 9.5-13.5 [facility] Platelets Auto (Bld) [#/Vol] on 10-09-2023 Platelets (Bld) [#/Vol] 228 10 3/uL 150-450 [facility] RBC Auto (Bld) [#/Vol]on RBC (Bld) [#/Vol] 3.91 10 6/uL 4.70-6.10 [facility] Serum or plasma albumin/glob ulin mass ratioon 10-09-2023 Albumin/Globulin [Mass ratio] 1.0 {ratio} [facility] Serum or plasma anion gap de terminationon 10-09-2023 Anion gap [Moles/Vol] 10.5 mmol/L Fi [facility] CT CTA ABD AND PELVISon 09-23 CT [...] Marie MD on 10/04/2023 3:36 PM Normal [facility] Office Visit (Cardiology)on 12-24-2022 Follow-up visit Diagnoses/Problems Assessed Coronary artery disease involving [place] coronary artery of [place] heart without angina pectoris (414.01) (I25.10) Preoperative [...] we can help. You may also call [phone] for free resources and assistance.; Status:Complete - [...] December. 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 Normal [place] Tobacco Screening.on 023 Fall risk assessment c) Not medically indicated -[facility] y 250 DO Work Phone: Tobacco use status [facility] a) [facility] Work Phone: Tobacco Screening. Yes [facility] y 250 DO Work Phone: [facility] [place] [address] [place] [address] CT Scan Report Signed Patient: Hector Gaspar MR#: [id number] : 1960 Acct:[id number] Age/Sex: 62 / M ADM Date: 11/03/22 Loc: CT Room: Type: [facility] Attending Dr: Adi Campos MD Copies to: [...] Layton Jr., D.O.11/03/2022 2:03 PM Dictation Location: [facility]--15 Transcribed By: [facility] 11/03/22 140 Dictated By: Parrish Layton Jr, DO 11/03/22 1358 Signed By: 11/03/22 140 Normal [facility] Cardiovasc Arrhythmia Result son 11-02-2022 Cardiovasc Arrhythmia Results Reason For Visit Reason for Visit: Holter Monitor: HECTOR is here for the application of a 48 hour Holter monitor. Ordering Physician: JANINE CUNHA Diagnosis: CAD SINUS PAUSE NO equipment agreement signed. HECTOR understands monitor is to be returned on: 11-03-22 Monitor number [id number] applied. Holter monitor returned and downloaded. Procedure [...] symptomatic Diagnosis/Problems Assessed Coronary artery disease involving [place] coronary artery of [place] heart without angina pectoris (414.01) (I25.10) Sinus pause (426.6) (I45.5) Future Appointments Date/TimeProviderSpecialt ySite 01/19/2023 02:30 PMSAlok smith DOCardiology703 [facility] 2 Jonathan 250 DO Signatures Electronically signed by : Mallory Fan MA; Nov 02 2022 2:10PM EST (Author) Electronically signed by : Mohsen Fernandez MD; Nov 08 2022 5:34PM EST (Author) Normal [place] Basic Metabolic Panelon 04-0 Anion gap [Moles/Vol] 11.6 mmol/L Normal 6.0-15.0 [facility] Comment on above: Order Comment: PT NO T FASTING Performed By: #### C MP, MG, HS TROP, A1C WTH eA, LIPID, CBC #### [address] Calcium [Mass/Vol] 9.5 mg/dL Normal 8.6-10.[address] [facility] Comment on above: Order Comment: PT NO T FASTING Result Comment: PERF ORMED BY: [place] [address] PATHOLOGIST PRODUCT SUPPORT ANALYST JANETTE DE LA FUENTE M.D. Performed By: #### C MP, MG, HS TROP, A1C WTH eA, LIPID, CBC #### [facility] [address] [place] [address] [place] Chloride [Moles/Vol] 107 mmol/L Normal 98-107 [facility] Comment on above: Order Comment: PT NO T FASTING Performed By: #### C MP, MG, HS TROP, A1C WTH eA, LIPID, CBC #### [facility] [address] CO2 [Moles/Vol] 25.8 mmol/L Normal 21.0-31.0 [facility] Comment on above: Order Comment: PT NO T FASTING Performed By: #### C MP, MG, HS TROP, A1C WTH eA, LIPID, CBC #### [facility] [address] Creatinine [Mass/Vol] 1.16 mg/dL Normal 0.70-1.30 [facility] Comment on above: Order Comment: PT NO T FASTING Performed By: #### C MP, MG, HS TROP, A1C WTH eA, LIPID, CBC #### [facility] [address] [place] [address] [place] GFR/1.73 sq M.predicted MDRD (S/P/Bld) [Vol rate/Area] mL/min/{1.73_m2} Normal [facility] Comment on above: Order Comment: PT NO T FASTING Performed By: #### C MP, MG, HS TROP, A1C WTH eA, LIPID, CBC #### [facility] [address] [place] [address] [place] Glucose [Mass/Vol] 100 mg/dL Normal 70-[address] [facility] Comment on above: Order Comment: PT NO T FASTING Result Comment: [place] Glucose Reference Range is dependent on time and content of last meal. Glucose of more than 200 mg/dL in a nonstressed, ambulatory subject supports the diagnosis of Diabetes Mellitus. ADA recommended reference range Performed By: #### C MP, MG, HS TROP, A1C WTH eA, LIPID, CBC #### [facility] [address] [place] [address] [place] Potassium [Moles/Vol] 4.4 mmol/L Normal 3.5-5.1 [facility] Comment on above: Order Comment: PT NO T FASTING Performed By: #### C MP, MG, HS TROP, A1C WTH eA, LIPID, CBC #### [facility] [address] Sodium [Moles/Vol] 140 mmol/L Normal 136-[address] [facility] Comment on above: Order Comment: PT NO T FASTING Performed By: #### C MP, MG, HS TROP, A1C WTH eA, LIPID, CBC #### [facility] [address] [place] [address] [place] Urea nitrogen [Mass/Vol] 27 mg/dL High 7-25 [facility] Comment on above: Order Comment: PT NO T FASTING Performed By: #### C MP, MG, HS TROP, A1C WTH eA, LIPID, CBC #### [facility] [address] [place] [address] [place] Calcium [Mass/volume] in Ser um or PlasmaOrdered By: Janine Cunha on 10-28-2022 Calcium [Mass/Vol] 9.5 mg/dL 8.6-10.[address] [facility] Carbon dioxide, total [Moles /volume] in Serum or PlasmaOrdered By: Janine Cunha on 10-28-2022 CO2 [Moles/Vol] 25.8 mmol/L 21.0-31.0 [facility] Chloride [Moles/volume] in S lisa or PlasmaOrdered By: Janine Cunha on 10-28-2022 Chloride [Moles/Vol] 107 mmol/L 98-107 [facility] Creatinine [Mass/volume] in Serum or PlasmaOrdered By: Janine Cunha on 10-28-2022 Creatinine [Mass/Vol] 1.16 mg/dL 0.70-1.30 [facility] Glucose [Mass/volume] in Ser um or PlasmaOrdered By: Janine Cunha on 10-28-2022 Glucose [Mass/Vol] 100 mg/dL 70-[address] [facility] Comment on above: ADA recommended refe rence rangeRandom Glucose Reference Range is dependent on time and content of last meal. Glucose of more than 200 mg/dL in a nonstressed, ambulatory subject supports the diagnosis of Diabetes Mellitus. No Panel InformationOrdered By: Janine Cunha on 10-28-2022 Estimated GFR (CKD-EPI) > 60.0 mL/Min [facility] Creatinine Clearance (Chem N/A [facility] No Panel Informationon 10-28 > 60.0 Normal -[facility] 600 DO Work Phone: 11.6\S\11.6 Normal 6.0-15.0 [facility] 600 DO Work Phone: [phone] 9.5\S\9.5 Normal 8.6-10.3 [facility] 600 DO Work Phone: [phone] Comment on above: PERFORMED BY:[place] [id number] [place], [place] [id number] MEDICAL DIRECTORJANETTE DE LA FUENTE M.D. 25.8\S\25.8 Normal 21.0-31.0 [facility] 600 DO Work Phone: [phone] 107\S\107 Normal 98-107 [facility] 600 DO Work Phone: [phone] 4.4\S\4.4 Normal 3.5-5.1 [facility] 600 DO Work Phone: [phone] 140\S\140 Normal 136-145 [facility] 600 DO Work Phone: [phone] 1.16\S\1.16 Normal 0.70-1.30 [facility] 600 DO Work Phone: [phone] 27\S\27 above high threshold 7-25 [facility] 600 DO Work Phone: [phone] 100\S\100 Normal 70-100 [facility] 600 DO Work Phone: [phone] Comment on above: Random Glucose Refer ence Range is dependent on time and content of last meal. Glucose of more than 200 mg/dL in a nonstressed, ambulatory subject supports the diagnosis of Diabetes Mellitus. ADA recommended reference range Potassium [Moles/volume] in Serum or PlasmaOrdered By: Janine Cunha on 10-28-2022 Potassium [Moles/Vol] 4.4 mmol/L 3.5-5.1 [facility] Serum or plasma anion gap de terminationOrdered By: Janine Cunha on 10-28-2022 Anion gap [Moles/Vol] 11.6 mmol/L 6.0-15.0 [facility] Sodium [Moles/volume] in Ser um or PlasmaOrdered By: Janine Cunha on 10-28-2022 Sodium [Moles/Vol] 140 mmol/L 136-[address] [facility] Urea nitrogen [Mass/volume] in Serum or PlasmaOrdered By: Janine Cunha on 10-28-2022 Urea nitrogen [Mass/Vol] 27 mg/dL 7-25 [facility] Tobacco Screening.on 023 Adult depression screening assessment No [facility] 250 DO Work Phone: Fall risk assessment a) No falls within the last year [facility] 250 DO Work Phone: Tobacco use status CP a) Yes [facility] 250 DO Work Phone: Tobacco Screening. Yes [facility] 250 DO Work Phone: B-Type Natriuretic Peptideon 10-12-2022 Natriuretic peptide B (Bld) [Mass/Vol] 91.0 pg/mL Normal 5-100 [facility] Comment on above: Result Comment: PERF ORMED BY: [place] [address] PATHOLOGIST PRODUCT SUPPORT ANALYST JANETTE DE LA FUENTE M.D. Performed By: #### C MP, MG, HS TROP, A1C WTH eA, LIPID, CBC #### [facility] [address] Basic Metabolic Panelon 09-24 Anion gap [Moles/Vol] 12.0 mmol/L Normal 6.0-15.0 [facility] Comment on above: Performed By: #### B MP, MG, BNP #### [facility] [address] [place] [id number] [facility] Calcium [Mass/Vol] 9.0 mg/dL Normal 8.6-10.[address] [facility] Comment on above: Performed By: #### B MP, MG, BNP #### [facility] [address] [place] [address] [place] Chloride [Moles/Vol] 107 mmol/L Normal 98-107 [facility] Comment on above: Performed By: #### B MP, MG, BNP #### [facility] [address] CO2 [Moles/Vol] 25.2 mmol/L Normal 21.0-31.0 [facility] Comment on above: Performed By: #### B MP, MG, BNP #### [facility] [address] Creatinine [Mass/Vol] 1.09 mg/dL Normal 0.70-1.30 [facility] Comment on above: Performed By: #### B MP, MG, BNP #### [facility] [address] [place] [address] [place] Creatinine Clr Calc Pharmacy 79.69 [facility] Comment on above: Performed By: #### B MP, MG, BNP #### [facility] [address] [place] [address] [place] GFR/1.73 sq M.predicted MDRD (S/P/Bld) [Vol rate/Area] mL/min/{1.73_m2} [facility] Comment on above: Performed By: #### B MP, MG, BNP #### [facility] [address] [place] [address] [place] Glucose [Mass/Vol] 100 mg/dL Normal 74-[address] [facility] Comment on above: Result Comment: [facility] Glucose Reference Range is dependent on time and content of last meal. Glucose of more than 200 mg/dL in a nonstressed, ambulatory subject supports the diagnosis of Diabetes Mellitus. ADA recommended reference range Performed By: #### B MP, MG, BNP #### [facility] [address] [place] [address] [place] Potassium [Moles/Vol] 4.2 mmol/L Normal 3.5-5.1 [facility] Comment on above: Performed By: #### B MP, MG, BNP #### [facility] [address] [place] [address] [place] Sodium [Moles/Vol] 140 mmol/L Normal 136-[address] [facility] Comment on above: Performed By: #### B MP, MG, BNP #### [facility] [address] [place] [id number] [place] Urea nitrogen [Mass/Vol] 23 mg/dL Normal 7-25 [facility] Comment on above: Performed By: #### B MP, MG, BNP #### [facility] [address] [place] [id number] [place] Calcium [Mass/volume] in Ser um or PlasmaOrdered By: Rubén Tatum on 10-12-2022 Calcium [Mass/Vol] 9.0 mg/dL 8.6-10.[address] [facility] Carbon dioxide, total [Moles /volume] in Serum or PlasmaOrdered By: Rubén Tatum on 10-12-2022 CO2 [Moles/Vol] 25.2 mmol/L 21.0-31.0 [facility] Chloride [Moles/volume] in S lisa or PlasmaOrdered By: Rubén Tatum on 10-12-2022 Chloride [Moles/Vol] 107 mmol/L 98-107 [facility] Creatinine [Mass/volume] in Serum or PlasmaOrdered By: Rubén Tatum on 10-12-2022 Creatinine [Mass/Vol] 1.09 mg/dL 0.70-1.30 [facility] Glucose [Mass/volume] in Ser um or PlasmaOrdered By: Rubén Tatum on 10-12-2022 Glucose [Mass/Vol] 100 mg/dL 74-[address] [facility] Comment on above: ADA recommended refe rence rangeRandom Glucose Reference Range is dependent on time and content of last meal. Glucose of more than 200 mg/dL in a nonstressed, ambulatory subject supports the diagnosis of Diabetes Mellitus. Laboratory - Chemistry and C hemistry - challengeOrdered By: Rubén Tatum on 10-12-2022 GFR/1.73 sq M.predicted MDRD (S/P/Bld) [Vol rate/Area] mL/min/{1.73_m2} [facility] Magnesiumon 10-12-2022 Magnesium [Mass/Vol] 2.2 mg/dL Normal 1.9-2.7 [facility] Comment on above: Result Comment: PERF ORMED BY: [place] [id number] PATHOLOGIST PRODUCT SUPPORT ANALYST JANETTE DE LA FUENTE M.D. Performed By: #### B MP, MG, BNP #### [facility] [address] [place] [id number] [facility] Magnesium [Mass/volume] in S lisa or PlasmaOrdered By: Rubén Tatum on 10-12-2022 Magnesium [Mass/Vol] 2.2 mg/dL 1.9-2.7 [facility] Natriuretic peptide B [Mass/ Vol]Ordered By: Rubén Tatum on 10-12-2022 Natriuretic peptide B (Bld) [Mass/Vol] 91.0 pg/mL 5-100 [facility] No Panel InformationOrdered By: Rubén Tatum on 10-12-2022 Pharmacy Creatinine Clearance (Chem 79.69 [facility] Potassium [Moles/volume] in Serum or PlasmaOrdered By: Rubén Tatum on 10-12-2022 Potassium [Moles/Vol] 4.2 mmol/L 3.5-5.1 [facility] Serum or plasma anion gap de terminationOrdered By: Rubén Tatum on 10-12-2022 Anion gap [Moles/Vol] 12.0 mmol/L 6.0-15.0 [facility] Sodium [Moles/volume] in Ser um or PlasmaOrdered By: Rubén Tatum on 10-12-2022 Sodium [Moles/Vol] 140 mmol/L 136-[address] [facility] Urea nitrogen [Mass/volume] in Serum or PlasmaOrdered By: Rubén Tatum on 10-12-2022 Urea nitrogen [Mass/Vol] 23 mg/dL 7-25 [facility] A1C with Estimated Average G leidan 10-11-2022 Glucose [Mass/Vol] 120 mg/dL Normal [facility] Comment on above: Result Comment: PERF ORMED BY: [facility] [address] [place] [address] PATHOLOGIST PRODUCT SUPPORT ANALYST JANETTE DE LA FUENTE M.D. Performed By: #### C MP, MG, HS TROP, A1C WTH eA, LIPID, CBC #### [facility] [address] HbA1c (Bld) [Mass fraction] 5.8 % High 4.3-5.6 [facility] Comment on above: Result Comment: Incr eased risk for diabetes: 5.7 - 6.4 diabetes: >6.4 glycemic control for adults with diabetes: <7.0 Performed By: #### C MP, MG, HS TROP, A1C WTH eA, LIPID, CBC #### [facility] [address] Alanine aminotransferase [En zymatic activity/volume] in Serum or PlasmaOrdered By: Rubén Tatum on 10-11-2022 ALT [Catalytic activity/Vol] 18 U/L 7-52 [facility] Albumin [Mass/volume] in Ser um or Plasma by Bromocresol green (BCG) dye binding methoOrdered By: Rubén Tatum on 10-11-2022 Albumin BCG dye [Mass/Vol] 3.9 g/dL 3.5-5.7 [facility] Alkaline phosphatase [Enzyma tic activity/volume] in Serum or PlasmaOrdered By: Rubén Tatum on 10-11-2022 ALP [Catalytic activity/Vol] 46 U/L 34-104 [facility] Aspartate aminotransferase [ Enzymatic activity/volume] in Serum or PlasmaOrdered By: Rubén Tatum on 10-11-2022 AST [Catalytic activity/Vol] 30 U/L 13-39 [facility] B-Type Natriuretic Peptideon 10-11-2022 Natriuretic peptide B (Bld) [Mass/Vol] 157.0 pg/mL High 5-100 [facility] Comment on above: Result Comment: PERF ORMED BY: [place] [address] PATHOLOGIST PRODUCT SUPPORT ANALYST JANETTE DE LA FUENTE M.D. Performed By: #### C MP, MG, HS TROP, A1C WTH eA, LIPID, CBC #### [facility] [address] Basophils Auto (Bld) [#/Vol] Ordered By: Galo Dent on 10-11-2022 Basophils (Bld) [#/Vol] 0.0 10*3/uL 0.0-0.2 [facility] Basophils/100 WBC Auto (Bld) Ordered By: Galo Dent on 10-11-2022 Basophils/100 WBC (Bld) 0.5 % . [facility] Bilirubin.total [Mass/volume ] in Serum or PlasmaOrdered By: Rubén Tatum on 10-11-2022 Bilirubin [Mass/Vol] 0.4 mg/dL 0.3-1.0 [facility] Cholesterol [Mass/volume] in Serum or PlasmaOrdered By: Rubén Tatum on 10-11-2022 Cholesterol [Mass/Vol] 221 mg/dL 140-200 [facility] Comment on above: Chol less than 200 m g/dl low riskChol 201-239 mg/dl borderline riskChol 240 mg/dl and greater high risk Cholesterol in LDL Calc [Mas s/Vol]Ordered By: Rubén Tatum on 10-11-2022 Cholesterol in LDL [Mass/Vol] 149 mg/dL 0-100 [facility] Comment on above: LDL ATP III CLASSIFI CATIONLDL less than 100 mg/dL OptimalLDL 100-129 mg/dL Near or above optimalLDL 130-159 mg/dL Borderline highLDL 160-189 mg/dL HighLDL greater than 189 mg/dL Very high Cholesterol in VLDL Calc [Ma ss/Vol]Ordered By: Rubén Tatum on 10-11-2022 Cholesterol in VLDL [Mass/Vol] 30 mg/dL [facility] Complete Blood Count Auto Di ffon 10-11-2022 Basophils (Bld) [#/Vol] 0.0 10*3/uL Normal 0.0-0.2 [facility] Comment on above: Result Comment: PERF ORMED BY: [place] [address] PATHOLOGIST PRODUCT SUPPORT ANALYST JANETTE DE LA FUENTE M.D. Performed By: #### C MP, MG, HS TROP, A1C WTH eA, LIPID, CBC #### [facility] [address] Basophils/100 WBC (Bld) 0.5 % Normal . [facility] Comment on above: Performed By: #### C MP, MG, HS TROP, A1C WTH eA, LIPID, CBC #### [address] Eosinophils (Bld) [#/Vol] 0.2 10*3/uL Normal 0.0-0.45 [facility] Comment on above: Performed By: #### C MP, MG, HS TROP, A1C WTH eA, LIPID, CBC #### [address] Eosinophils/100 WBC (Bld) 3.7 % Normal . [facility] Comment on above: Performed By: #### C MP, MG, HS TROP, A1C WTH eA, LIPID, CBC #### [address] Erythrocyte distribution width (RBC) [Ratio] 14.9 % High 12.0-14.8 [facility] Comment on above: Performed By: #### C MP, MG, HS TROP, A1C WTH eA, LIPID, CBC #### [address] Hematocrit (Bld) [Volume fraction] 37.7 % Low 38.8-50.0 [facility] Comment on above: Performed By: #### C MP, MG, HS TROP, A1C WTH eA, LIPID, CBC #### [address] Hemoglobin (Bld) [Mass/Vol] 12.7 g/dL Low 13.0-17.0 [facility] Comment on above: Performed By: #### C MP, MG, HS TROP, A1C WTH eA, LIPID, CBC #### [place] [address] [place] Lymphocytes (Bld) [#/Vol] 1.4 10*3/uL Normal 1.00-4.8 [facility] Comment on above: Performed By: #### C MP, MG, HS TROP, A1C WTH eA, LIPID, CBC #### [address] Lymphocytes/100 WBC (Bld) 21.8 % Normal . [facility] Comment on above: Performed By: #### C MP, MG, HS TROP, A1C WTH eA, LIPID, CBC #### [address] MCH (RBC) [Entitic mass] 30.1 pg Normal 27.5-35.2 [facility] Comment on above: Performed By: #### C MP, MG, HS TROP, A1C WTH eA, LIPID, CBC #### [address] MCV (RBC) [Entitic vol] 89.4 fL Normal 83.5-101 [facility] Comment on above: Performed By: #### C MP, MG, HS TROP, A1C WTH eA, LIPID, CBC #### [address] Mean Corpuscular HGB Conc 33.7 g/dL Normal 32.5-35.6 [facility] Comment on above: Performed By: #### C MP, MG, HS TROP, A1C WTH eA, LIPID, CBC #### [address] Monocytes (Bld) [#/Vol] 0.7 10*3/uL Normal 0.0-0.8 [facility] Comment on above: Performed By: #### C MP, MG, HS TROP, A1C WTH eA, LIPID, CBC #### [address] Monocytes/100 WBC (Bld) 10.2 % Normal . [facility] Comment on above: Performed By: #### C MP, MG, HS TROP, A1C WTH eA, LIPID, CBC #### [address] Neutrophils (Bld) [#/Vol] 4.2 10*3/uL Normal 1.8-7.7 [facility] Comment on above: Performed By: #### C MP, MG, HS TROP, A1C WTH eA, LIPID, CBC #### [facility] [address] Neutrophils/100 WBC (Bld) 63.8 % Normal . [facility] Comment on above: Performed By: #### C MP, MG, HS TROP, A1C WTH eA, LIPID, CBC #### [facility] [address] NRBC% 0.1 /100{WBC} Normal 0-0.5 [facility] Comment on above: Performed By: #### C MP, MG, HS TROP, A1C WTH eA, LIPID, CBC #### [facility] [address] Platelet mean volume (Bld) [Entitic vol] 7.3 fL Normal 6.6-10.1 [facility] Comment on above: Performed By: #### C MP, MG, HS TROP, A1C WTH eA, LIPID, CBC #### [facility] [address] Platelets (Bld) [#/Vol] 203 10*3/uL Normal 150-450 [facility] Comment on above: Performed By: #### C MP, MG, HS TROP, A1C WTH eA, LIPID, CBC #### [address] RBC (Bld) [#/Vol] 4.21 10*6/uL Normal 3.90-5.60 [facility] Comment on above: Performed By: #### C MP, MG, HS TROP, A1C WTH eA, LIPID, CBC #### [facility] [address] WBC (Bld) [#/Vol] 6.6 10*3/uL Normal 4.1-10.[address] [facility] Comment on above: Performed By: #### C MP, MG, HS TROP, A1C WTH eA, LIPID, CBC #### [address] Comprehensive Metabolic Pane weston 10-11-2022 Albumin [Mass/Vol] 3.9 g/dL Normal 3.5-5.[address] [facility] Comment on above: Order Comment: FASTI NG Y Performed By: #### C MP, MG, HS TROP, A1C WTH eA, LIPID, CBC #### [facility] [address] Albumin/Globulin [Mass ratio] 1.6 {ratio} Normal [facility] Comment on above: Order Comment: FASTI NG Y Performed By: #### C MP, MG, HS TROP, A1C WTH eA, LIPID, CBC #### [facility] [address] ALP [Catalytic activity/Vol] 46 U/L Normal 34-104 [facility] Comment on above: Order Comment: FASTI NG Y Performed By: #### C MP, MG, HS TROP, A1C WTH eA, LIPID, CBC #### [facility] [address] ALT [Catalytic activity/Vol] 18 U/L Normal 7-52 [facility] Comment on above: Order Comment: FASTI NG Y Performed By: #### C MP, MG, HS TROP, A1C WTH eA, LIPID, CBC #### [facility] [address] Anion gap [Moles/Vol] 10.3 mmol/L Normal 6.0-15.0 [facility] Comment on above: Order Comment: FASTI NG Y Performed By: #### C MP, MG, HS TROP, A1C WTH eA, LIPID, CBC #### [facility] [address] AST [Catalytic activity/Vol] 30 U/L Normal 13-39 [facility] Comment on above: Order Comment: FASTI NG Y Performed By: #### C MP, MG, HS TROP, A1C WTH eA, LIPID, CBC #### [address] Bilirubin [Mass/Vol] 0.4 mg/dL Normal 0.3-1.0 [facility] Comment on above: Order Comment: FASTI NG Y Performed By: #### C MP, MG, HS TROP, A1C WTH eA, LIPID, CBC #### [facility] [address] Calcium [Mass/Vol] 8.9 mg/dL Normal 8.6-10.[address] [facility] Comment on above: Order Comment: FASTI NG Y Performed By: #### C MP, MG, HS TROP, A1C WTH eA, LIPID, CBC #### [facility] [address] Chloride [Moles/Vol] 109 mmol/L High 98-107 [facility] Comment on above: Order Comment: FASTI NG Y Performed By: #### C MP, MG, HS TROP, A1C WTH eA, LIPID, CBC #### [facility] [address] CO2 [Moles/Vol] 23.7 mmol/L Normal 21.0-31.0 [facility] Comment on above: Order Comment: FASTI NG Y Performed By: #### C MP, MG, HS TROP, A1C WTH eA, LIPID, CBC #### [facility] [address] Creatinine [Mass/Vol] 1.00 mg/dL Normal 0.70-1.30 [facility] Comment on above: Order Comment: FASTI NG Y Performed By: #### C MP, MG, HS TROP, A1C WTH eA, LIPID, CBC #### [facility] [address] Creatinine Clr Calc Pharmacy 86.86 [facility] Comment on above: Order Comment: FASTI NG Y Performed By: #### C MP, MG, HS TROP, A1C WTH eA, LIPID, CBC #### [facility] [address] [place] [address] [place] GFR/1.73 sq M.predicted MDRD (S/P/Bld) [Vol rate/Area] mL/min/{1.73_m2} [facility] Comment on above: Order Comment: FASTI NG Y Performed By: #### C MP, MG, HS TROP, A1C WTH eA, LIPID, CBC #### [facility] [address] Globulin (S) [Mass/Vol] 2.5 g/dL Normal [facility] Comment on above: Order Comment: FASTI NG Y Performed By: #### C MP, MG, HS TROP, A1C WTH eA, LIPID, CBC #### [facility] [address] Glucose [Mass/Vol] 96 mg/dL Normal 74-[address] [facility] Comment on above: Order Comment: FASTI NG Y Result Comment: [facility] Glucose Reference Range is dependent on time and content of last meal. Glucose of more than 200 mg/dL in a nonstressed, ambulatory subject supports the diagnosis of Diabetes Mellitus. ADA recommended reference range Performed By: #### C MP, MG, HS TROP, A1C WTH eA, LIPID, CBC #### [address] Potassium [Moles/Vol] 4.0 mmol/L Normal 3.5-5.1 [facility] Comment on above: Order Comment: FASTI NG Y Performed By: #### C MP, MG, HS TROP, A1C WTH eA, LIPID, CBC #### [facility] [address] Protein [Mass/Vol] 6.4 g/dL Normal 6.4-8.[address] [facility] Comment on above: Order Comment: FASTI NG Y Performed By: #### C MP, MG, HS TROP, A1C WTH eA, LIPID, CBC #### [facility] [address] Sodium [Moles/Vol] 139 mmol/L Normal 136-[address] [facility] Comment on above: Order Comment: FASTI NG Y Performed By: #### C MP, MG, HS TROP, A1C WTH eA, LIPID, CBC #### [address] Urea nitrogen [Mass/Vol] 17 mg/dL Normal 7-25 [facility] Comment on above: Order Comment: FASTI NG Y Performed By: #### C MP, MG, HS TROP, A1C WTH eA, LIPID, CBC #### [facility] [address] [place] [address] [place] ECG 12 lead ECGon 10-11-2022 ECG 12 lead ECG [facility] [place] [address] [place] [address] Electrocardiograph Report Signed Patient: Hector Gaspar SR MR#: [id number] 187 : 1960 Acct:[id number] Age/Sex: 62 / M ADM Date: 10/10/22 Loc: Room: [address] [place] [address] Type: ADM IN Attending Dr: Barbara Rivero [...] CRUZ DO Transcribed By: MUS Signed By Edlison Cruz DO 10/11 1133 Normal [facility] Eosinophils Auto (Bld) [#/Vo l]Ordered By: Galo Dent on 10-11-2022 Eosinophils (Bld) [#/Vol] 0.2 10*3/uL 0.0-0.45 [facility] Eosinophils/100 WBC Auto (Bl d)Ordered By: Galo Dent on 10-11-2022 Eosinophils/100 WBC (Bld) 3.7 % . [facility] Erythrocyte distribution wid th Auto (RBC) [Ratio]Ordered By: Galo Dent on 10-11-2022 Erythrocyte distribution width (RBC) [Ratio] 14.9 % 12.0-14.8 [facility] Globulin Calc (S) [Mass/Vol] Ordered By: Rubén Tatum on 10-11-2022 Globulin (S) [Mass/Vol] 2.5 g/dL [facility] Glucose mean value [Mass/vol ume] in Blood Estimated from glycated hemoglobinOrdered By: Galo Dent on 10-11-2022 Average glucose Estimated from glycated hemoglobin (Bld) [Mass/Vol] 120 mg/dL [facility] Hematocrit Auto (Bld) [Volum e fraction]Ordered By: Glao Dent on 10-11-2022 Hematocrit (Bld) [Volume fraction] 37.7 % 38.8-50.0 [facility] Hemoglobin A1c percentageOrd ered By: Galo Dent on 10-11-2022 HbA1c (Bld) [Mass fraction] 5.8 % 4.3-5.6 [facility] Comment on above: Increased risk for d iabetes: 5.7 - 6.4diabetes: >6.4glycemic control for adults with diabetes: <7.0 Hemoglobin [Mass/volume] in BloodOrdered By: Galo Dent on 10-11-2022 Hemoglobin (Bld) [Mass/Vol] 12.7 g/dL 13.0-17.0 [facility] Laboratory - CoagulationOrde red By: Galo Dent on 10-11-2022 PT Coag (PPP) [Time] 11.3 s 9.0-12.9 [facility] Leukocytes [#/volume] correc kal for nucleated erythrocytes in Blood by Automated counOrdered By: Galo Dent on 10-11-2022 WBC corrected for nucl RBC Auto (Bld) [#/Vol] 6.6 10*3/uL 4.1-10.5 [facility] Lipid Panelon 10-11-2022 Cholesterol [Mass/Vol] 221 mg/dL High 140-200 [facility] Comment on above: Order Comment: FASTI NG Y Result Comment: Chol less than 200 mg/dl low risk Chol 201-239 mg/dl borderline risk Chol 240 mg/dl and greater high risk Performed By: #### C MP, MG, HS TROP, A1C WTH eA, LIPID, CBC #### [facility] [address] [place] [address] Cholesterol in HDL [Mass/Vol] 42 mg/dL Normal 29-71 [facility] Comment on above: Order Comment: TONIA FLOYD Y Result Comment: HDL CHOL ATP-III CLASSIFICATION Cardiovascular Risk HDL > or equal to 60 mg/dL LOW HDL < 40 mg/dL HIGH Performed By: #### C MP, MG, HS TROP, A1C WTH eA, LIPID, CBC #### [facility] [address] Cholesterol.total/Chol esterol in HDL [Mass ratio] 5.3 {ratio} Normal <5.0 [facility] Comment on above: Order Comment: FASTJeanette NG Y Result Comment: PERF ORMED BY: [place] [address] PATHOLOGIST PRODUCT SUPPORT ANALYST JANETTE DE LA FUENTE M.D. Performed By: #### C MP, MG, HS TROP, A1C WTH eA, LIPID, CBC #### [facility] [address] LDL Cholesterol,Calculated 149 mg/dL High 0-100 [facility] Comment on above: Order Comment: KYLEI NG Y Result Comment: LDL ATP III CLASSIFICATION LDL less than 100 mg/dL Optimal LDL 100-129 mg/dL Near or above optimal LDL 130-159 mg/dL Borderline high LDL 160-189 mg/dL High LDL greater than 189 mg/dL Very high Performed By: #### C MP, MG, HS TROP, A1C WTH eA, LIPID, CBC #### [facility] [address] Triglyceride w/Reflex 152 mg/dL High 0-149 [facility] Comment on above: Order Comment: FASTI [...] TROP, A1C WTH eA, LIPID, CBC #### [facility] [address] VLDL CHOLESTEROL 30 mg/dL Normal [facility] Comment on above: Order Comment: FASTI NG Y Performed By: #### C MP, MG, HS TROP, A1C WTH eA, LIPID, CBC #### [facility] [address] [place] [address] [place] Lymphocytes Auto (Bld) [#/Vo l]Ordered By: Galo Filipe on 10-11-2022 Lymphocytes (Bld) [#/Vol] 1.4 10*3/uL 1.00-4.8 [facility] Lymphocytes/100 WBC Auto (Bl d)Ordered By: Galo Filipe on 10-11-2022 Lymphocytes/100 WBC (Bld) 21.8 % . [facility] MCH Auto (RBC) [Entitic mass ]Ordered By: Galo Wittmood on 10-11-2022 MCH (RBC) [Entitic mass] 30.1 pg 27.5-35.2 [facility] MCHC Auto (RBC) [Mass/Vol]Or dered By: Galo Filipe on 10-11-2022 MCHC (RBC) [Mass/Vol] 33.7 g/dL 32.5-35.6 [facility] MCV Auto (RBC) [Entitic vol] Ordered By: Galo Filipe on 10-11-2022 MCV (RBC) [Entitic vol] 89.4 fL 83.5-101 [facility] Magnesiumon 10-11-2022 Magnesium [Mass/Vol] 2.0 mg/dL Normal 1.9-2.7 [facility] Comment on above: Order Comment: FASTI NG Y Performed By: #### C MP, MG, HS TROP, A1C WTH eA, LIPID, CBC #### [facility] [address] [place] [address] [place] Monocytes Auto (Bld) [#/Vol] Ordered By: Galo Filipe on 10-11-2022 Monocytes (Bld) [#/Vol] 0.7 10*3/uL 0.0-0.8 [facility] Monocytes/100 WBC Auto (Bld) Ordered By: Galo Filipe on 10-11-2022 Monocytes/100 WBC (Bld) 10.2 % . [facility] Neutrophils Auto (Bld) [#/Vo l]Ordered By: Galo Dent on 10-11-2022 Neutrophils (Bld) [#/Vol] 4.2 10*3/uL 1.8-7.7 [facility] Neutrophils/100 WBC Auto (Bl d)Ordered By: Galo Dent on 10-11-2022 Neutrophils/100 WBC (Bld) 63.8 % . [facility] Nucleated erythrocytes [Pres ence] in Blood by Automated countOrdered By: Galo Dent on 10-11-2022 Nucleated RBC Auto Ql (Bld) 0.1 /100{WBC} 0-0.5 [facility] Platelet mean volume Auto (B ld) [Entitic vol]Ordered By: Galo Dent on 10-11-2022 Platelet mean volume (Bld) [Entitic vol] 7.3 fL 6.6-10.1 [facility] Platelet poor plasma interna tional normalized ratio (INR) by coagulation assay (relatOrdered By: Galo Dent on 10-11-2022 INR Coag (PPP) [Relative time] 1.0 {INR} [facility] Comment on above: INR Therapeutic Rang [...] 10-11-2022 Platelets (Bld) [#/Vol] 203 10*3/uL 150-450 [facility] Protein [Mass/volume] in Ser um or PlasmaOrdered By: Rubén Tatum on 10-11-2022 Protein [Mass/Vol] 6.4 g/dL 6.4-8.[address] [facility] Prothrombin Time INRon 10-11 INR Coag (PPP) [Relative time] 1.0 {INR} Normal [facility] Comment on above: Result Comment: INR [...] heart valves: 3 - 4.5 PERFORMED BY: [place] [address] PATHOLOGIST PRODUCT SUPPORT ANALYST JANETTE DE LA FUENTE M.D. Performed By: #### C MP, MG, HS TROP, A1C WTH eA, LIPID, CBC #### [facility] [address] [place] [address] PT Coag (PPP) [Time] 11.3 s Normal 9.0-12.9 [facility] Comment on above: Performed By: #### C MP, MG, HS TROP, A1C WTH eA, LIPID, CBC #### [facility] [address] RBC Auto (Bld) [#/Vol]Ordere d By: Galo Dent on 10-11-2022 RBC (Bld) [#/Vol] 4.21 10*6/uL 3.90-5.60 [facility] Serum or plasma albumin/glob ulin mass ratioOrdered By: Rubén Tatum on 10-11-2022 Albumin/Globulin [Mass ratio] 1.6 {ratio} [facility] Serum or plasma high density lipoprotein (HDL) cholesterol measurementOrdered By: Rubén Tatum on 10-11-2022 Cholesterol in HDL [Mass/Vol] 42 mg/dL 29-71 [facility] Comment on above: HDL CHOL ATP-III CLA SSIFICATION Cardiovascular RiskHDL > or equal to 60 mg/dL LOWHDL < 40 mg/dL HIGH Serum or plasma total choles terol/high density lipoprotein (HDL) cholesterol mass ratOrdered By: Rubén Tatum on 10-11-2022 Cholesterol.total/Chol esterol in HDL [Mass ratio] 5.3 {ratio} <5.0 [facility] Triglyceride [Mass/volume] i n Serum or PlasmaOrdered By: Rubén Tatum on 10-11-2022 Triglyceride [Mass/Vol] 152 mg/dL 0-149 [facility] Comment on above: TRIG ATP III CLASSIF ICATIONTRIG less than 150 mg/dL NormalTRIG 150-199 mg/dL Borderline highTRIG 200-500 mg/dL High TRIG greater than 500 mg/dL Very highStandard traceable to the Center for Disease Conrtrol and Prevention (CDC) test method. Troponin I High Sensitivityo n 10-11-2022 Troponin I High Sensitivity 3965.8 pg/mL Off scale high 0.0-20.0 [facility] Comment on above: Result Comment: Crit ical Result : Called to and read back by: HECTOR LOCO at: 10/11/2022 06:45:50 by:[email or web address] PERFORMED BY: [place] [address] PATHOLOGIST PRODUCT SUPPORT ANALYST JANETTE DE LA FUENTE M.D. Performed By: #### C MP, MG, HS TROP, A1C WTH eA, LIPID, CBC #### [address] Troponin I.cardiac [Mass/vol ume] in Serum or Plasma by Detection limit <= 0.01 ng/Ordered By: Rubén Tatum on 10-11-2022 Troponin I.cardiac DL <= 0.01 ng/mL [Mass/Vol] 3965.8 pg/mL 0.0-20.0 [facility] Comment on above: Critical Result : Ca lled to and read back by: HECTOR LOCO at: 10/11/2022 06:45:50 by:[id number] WBC Auto (Bld) [#/Vol]Ordere d By: Galo Dent on 10-11-2022 WBC (Bld) [#/Vol] 6.6 10*3/uL 4.1-10.[address] [facility] XR chest 2V*on 10-11-2022 XR chest 2V* [facility] [place] [address] [place] [address] XRay Report Signed Patient: Hector Gaspar MR#: [id number] 187 : 1960 Acct:[id number] Age/Sex: 62 / M ADM Date: 10/10/22 Loc: Room: [address] [place] [address] Type: ADM IN Attending Dr: Barbara Rivero [...] Arlin Villafana M.D.10/11/2022 2:29 PM Dictation Location: [place] [address] Transcribed By: [facility] 10/11/221428 Dictated By: Arlin Villafana II, MD 10/11/221427 Signed By: 10/11/221428 Normal [facility] A1C with Estimated Average G tom 10-10-2022 Glucose [Mass/Vol] 117 mg/dL Normal [facility] Comment on above: Result Comment: PERF ORMED BY: [place] [address] PATHOLOGIST PRODUCT SUPPORT ANALYST JANETTE DE LA FUENTE M.D. Performed By: #### C MP, MG, HS TROP, A1C WTH eA, LIPID, CBC #### [facility] [address] [place] [address] HbA1c (Bld) [Mass fraction] 5.7 % High 4.3-5.6 [facility] Comment on above: Result Comment: Incr eased risk for diabetes: 5.7 - 6.4 diabetes: >6.4 glycemic control for adults with diabetes: <7.0 Performed By: #### C MP, MG, HS TROP, A1C WTH eA, LIPID, CBC #### [facility] [address] AMYLASEon 10-10-2022 Amylase [Catalytic activity/Vol] 40 U/L Normal 25-115 [facility] Comment on above: Performed By: #### A MY, CMP, LIPA #### [facility] [address] [place] [address] [address] Carrington Chandler Activated partial thrombopla stin time (aPTT) in platelet poor plasma by coagulation aOrdered By: Galo Dent on 10-10-2022 aPTT Coag (PPP) [Time] 35.9 s 25.1-36.5 [facility] CARDIAC ARLIN ADMITon 023 CK [Catalytic activity/Vol] 530 U/L Critically high 39-308 [facility] Comment on above: Performed By: #### A MY, CMP, LIPA #### [facility] [address] [place] [address] [address] Carrington Chandler CK.MB [Mass/Vol] 60.47 ng/mL Critically high <=3.60 [facility] Comment on above: Performed By: #### A MY, CMP, LIPA #### [facility] [address] [place] [address] [address] Carrington Chandler HSTROP 9166.1 pg/mL Critically high 4.0-76.1 [facility] Comment on above: Result Comment: CUT- OFF POINTS HAVE BEEN ESTABLISHED BASED ON THE FOURTH UNIVERSAL DEFINITIONS OF MYOCARDIAL INFARCTION. THE UPPER REFERENCE LIMIT (URL) OF TROPONIN, DEFINED THE 99TH PERCENTILE OF cTnI DISTRIBUTION IN A REFERENCE POPULATION, HAS BEEN CONFIRMED THE DECISION THRESHOLD FOR OK DIAGNOSIS. Performed By: #### A MY, CMP, LIPA #### [facility] [address] [place] [address] [address] Carrington Chandler SAULO 108 ng/mL Critically high 16-96 [facility] Comment on above: Performed By: #### A MY, CMP, LIPA #### [facility] [address] [place] [address] [address] Carrington Chandler CBC AUTO DIFFon 10-10-2022 BASO # 0.0 103/ul Normal 0.0-0.1 [facility] Comment on above: Performed By: #### B MP #### [facility] [address] [place] [address] [address] Carrington Chandler Basophils/100 WBC (Bld) 0.4 % Normal 0.2-2.0 [facility] Comment on above: Performed By: #### B MP #### [facility] [address] [place] [address] [address] Carrington Chandler EO # 0.3 103/ul Normal 0.0-0.7 [facility] Comment on above: Performed By: #### B MP #### [facility] [address] [place] [address] Dr. Carrington Chandler Eosinophils/100 WBC (Bld) 4.9 % Normal 0.9-7.0 [facility] Comment on above: Performed By: #### B MP #### [facility] [address] [place] [address] Dr. Carrington Chandler Erythrocyte distribution width (RBC) [Ratio] 13.8 % Normal 11.0-15.0 [facility] Comment on above: Performed By: #### B MP #### [facility] [address] [place] [address] Dr. Carrington Chandler Hematocrit (Bld) [Volume fraction] 38.1 % Critically low 42.0-54.0 [facility] Comment on above: Performed By: #### B MP #### [facility] [address] [place] [address] Dr. Carrington Chandler Hemoglobin (Bld) [Mass/Vol] 13.1 g/dL Critically low 14.0-18.0 [facility] Comment on above: Performed By: #### B MP #### [facility] [address] [place] [address] Dr. Carrington Chandler IG # 0.01 10e3/ul Normal 0.00-0.03 [facility] Comment on above: Performed By: #### B MP #### [facility] [address] [place] [address] Dr. Carrington Chandler IG % 0.2 % Normal 0.0-0.5 [facility] Comment on above: Performed By: #### B MP #### [facility] [address] [place] [address] Dr. Carrington Chandler LYMPH # 1.8 103/ul Normal 1.2-3.8 [facility] Comment on above: Performed By: #### B MP #### [facility] [address] [place] [address] Dr. Carrington Chandler Lymphocytes/100 WBC (Bld) 33.5 % Normal 20.5-60.0 [facility] Comment on above: Performed By: #### B MP #### [facility] [address] [place] [address] Dr. Carrington Chandler MANUAL DIFF REQ NO Normal [facility] Comment on above: Performed By: #### B MP #### [facility] [address] [place] [address] Dr. Carrington Chandler MCH (RBC) [Entitic mass] 30.7 pg Normal 25.9-34.0 [facility] Comment on above: Performed By: #### B MP #### [facility] [address] [place] [address] Dr. Carrington Chandler MCHC (RBC) [Mass/Vol] 34.4 g/dL Normal 29.9-35.2 [facility] Comment on above: Performed By: #### B MP #### [facility] [address] [place] [address] Dr. Carrington Chandler MCV (RBC) [Entitic vol] 89.2 fL Normal 80.0-94.0 [facility] Comment on above: Performed By: #### B MP #### [facility] [address] [place] [address] Dr. Carrington Chandler MONO # 0.6 103/ul Normal 0.3-0.8 [facility] Comment on above: Performed By: #### B MP #### [facility] [address] [place] [address] [address] Carrington Chandler Monocytes/100 WBC (Bld) 11.8 % Normal 1.7-12.0 [facility] Comment on above: Performed By: #### B MP #### [facility] [address] [place] [address] Dr. Carrington Chandler NEUT # 2.6 103/ul Normal 1.4-6.5 [facility] Comment on above: Performed By: #### B MP #### [facility] [address] [place] [address] Dr. Carrington Chandler Neutrophils/100 WBC (Bld) 49.2 % Normal 43.0-75.0 [facility] Comment on above: Performed By: #### B MP #### [facility] [address] [place] [address] Dr. Carrington Chandler Platelet mean volume (Bld) [Entitic vol] 9.2 fL Critically low 9.5-13.5 [facility] Comment on above: Performed By: #### B MP #### [facility] [address] [place] [address] Dr. Carrington Chandler PLT 213 103/ul Normal 150-450 [facility] Comment on above: Performed By: #### B MP #### [facility] [address] [place] [address] Dr. Carrington Chandler RBC 4.27 106/ul Critically low 4.70-6.10 [facility] Comment on above: Performed By: #### B MP #### [facility] [address] [place] [address] Dr. Carrington Chandler WBC 5.4 103/ul Normal 4.0-11.0 [facility] Comment on above: Performed By: #### B MP #### [facility] [address] [place] [address] Dr. Carrington Chandler Complete Blood Count Auto Di ffon 10-10-2022 Basophils (Bld) [#/Vol] 0.0 10*3/uL Normal 0.0-0.2 [facility] Comment on above: Result Comment: PERF ORMED BY: [facility] [address] PATHOLOGIST PRODUCT SUPPORT ANALYST JANETTE DE LA FUENTE M.D. Performed By: #### C MP, MG, HS TROP, A1C WTH eA, LIPID, CBC #### [address] Basophils/100 WBC (Bld) 0.6 % Normal . [facility] Comment on above: Performed By: #### C MP, MG, HS TROP, A1C WTH eA, LIPID, CBC #### [address] Eosinophils (Bld) [#/Vol] 0.2 10*3/uL Normal 0.0-0.45 [facility] Comment on above: Performed By: #### C MP, MG, HS TROP, A1C WTH eA, LIPID, CBC #### [address] Eosinophils/100 WBC (Bld) 4.4 % Normal . [facility] Comment on above: Performed By: #### C MP, MG, HS TROP, A1C WTH eA, LIPID, CBC #### [address] Erythrocyte distribution width (RBC) [Ratio] 14.6 % Normal 12.0-14.8 [facility] Comment on above: Performed By: #### C MP, MG, HS TROP, A1C WTH eA, LIPID, CBC #### [address] Hematocrit (Bld) [Volume fraction] 36.7 % Low 38.8-50.0 [facility] Comment on above: Performed By: #### C MP, MG, HS TROP, A1C WTH eA, LIPID, CBC #### [address] Hemoglobin (Bld) [Mass/Vol] 12.5 g/dL Low 13.0-17.0 [facility] Comment on above: Performed By: #### C MP, MG, HS TROP, A1C WTH eA, LIPID, CBC #### [address] [place] [address] [place] Lymphocytes (Bld) [#/Vol] 1.4 10*3/uL Normal 1.00-4.8 [facility] Comment on above: Performed By: #### C MP, MG, HS TROP, A1C WTH eA, LIPID, CBC #### [address] Lymphocytes/100 WBC (Bld) 27.5 % Normal . [facility] Comment on above: Performed By: #### C MP, MG, HS TROP, A1C WTH eA, LIPID, CBC #### [address] MCH (RBC) [Entitic mass] 30.3 pg Normal 27.5-35.2 [facility] Comment on above: Performed By: #### C MP, MG, HS TROP, A1C WTH eA, LIPID, CBC #### [address] MCV (RBC) [Entitic vol] 88.8 fL Normal 83.5-101 [facility] Comment on above: Performed By: #### C MP, MG, HS TROP, A1C WTH eA, LIPID, CBC #### [address] Mean Corpuscular HGB Conc 34.1 g/dL Normal 32.5-35.6 [facility] Comment on above: Performed By: #### C MP, MG, HS TROP, A1C WTH eA, LIPID, CBC #### [address] Monocytes (Bld) [#/Vol] 0.6 10*3/uL Normal 0.0-0.8 [facility] Comment on above: Performed By: #### C MP, MG, HS TROP, A1C WTH eA, LIPID, CBC #### [address] Monocytes/100 WBC (Bld) 11.4 % Normal . [facility] Comment on above: Performed By: #### C MP, MG, HS TROP, A1C WTH eA, LIPID, CBC #### [facility] [address] Neutrophils (Bld) [#/Vol] 2.9 10*3/uL Normal 1.8-7.7 [facility] Comment on above: Performed By: #### C MP, MG, HS TROP, A1C WTH eA, LIPID, CBC #### [facility] [address] [place] [address] [place] Neutrophils/100 WBC (Bld) 56.1 % Normal . [facility] Comment on above: Performed By: #### C MP, MG, HS TROP, A1C WTH eA, LIPID, CBC #### [facility] [address] NRBC% 0.1 /100{WBC} Normal 0-0.5 [facility] Comment on above: Performed By: #### C MP, MG, HS TROP, A1C WTH eA, LIPID, CBC #### [facility] [address] Platelet mean volume (Bld) [Entitic vol] 7.2 fL Normal 6.6-10.1 [facility] Comment on above: Performed By: #### C MP, MG, HS TROP, A1C WTH eA, LIPID, CBC #### [facility] [address] Platelets (Bld) [#/Vol] 199 10*3/uL Normal 150-450 [facility] Comment on above: Performed By: #### C MP, MG, HS TROP, A1C WTH eA, LIPID, CBC #### [facility] [address] [place] [address] [place] RBC (Bld) [#/Vol] 4.13 10*6/uL Normal 3.90-5.60 [facility] Comment on above: Performed By: #### C MP, MG, HS TROP, A1C WTH eA, LIPID, CBC #### [facility] [address] WBC (Bld) [#/Vol] 5.1 10*3/uL Normal 4.1-10.[address] [facility] Comment on above: Performed By: #### C MP, MG, HS TROP, A1C WTH eA, LIPID, CBC #### [facility] [address] [place] [address] [place] Basophils (Bld) [#/Vol] 0.0 10*3/uL Normal 0.0-0.2 [facility] Comment on above: Result Comment: PERF ORMED BY: [place] [address] PATHOLOGIST PRODUCT SUPPORT ANALYST JANETTE DE LA FUENTE M.D. Performed By: #### P T, CBC #### [address] Basophils/100 WBC (Bld) 0.6 % Normal . [facility] Comment on above: Performed By: #### P T, CBC #### [address] Eosinophils (Bld) [#/Vol] 0.2 10*3/uL Normal 0.0-0.45 [facility] Comment on above: Performed By: #### P T, CBC #### [place] [address] [place] Eosinophils/100 WBC (Bld) 4.6 % Normal . [facility] Comment on above: Performed By: #### P T, CBC #### [address] Erythrocyte distribution width (RBC) [Ratio] 14.9 % High 12.0-14.8 [facility] Comment on above: Performed By: #### P T, CBC #### [address] Hematocrit (Bld) [Volume fraction] 36.2 % Low 38.8-50.0 [facility] Comment on above: Performed By: #### P T, CBC #### [address] Hemoglobin (Bld) [Mass/Vol] 12.4 g/dL Low 13.0-17.0 [facility] Comment on above: Performed By: #### P T, CBC #### [facility] [address] [place] [address] [place] Lymphocytes (Bld) [#/Vol] 1.4 10*3/uL Normal 1.00-4.8 [facility] Comment on above: Performed By: #### P T, CBC #### [facility] [address] Lymphocytes/100 WBC (Bld) 28.1 % Normal . [facility] Comment on above: Performed By: #### P T, CBC #### [facility] [address] MCH (RBC) [Entitic mass] 30.3 pg Normal 27.5-35.2 [facility] Comment on above: Performed By: #### P T, CBC #### [address] MCV (RBC) [Entitic vol] 88.5 fL Normal 83.5-101 [facility] Comment on above: Performed By: #### P T, CBC #### [address] Mean Corpuscular HGB Conc 34.2 g/dL Normal 32.5-35.6 [facility] Comment on above: Performed By: #### P T, CBC #### [place] [address] [place] Monocytes (Bld) [#/Vol] 0.6 10*3/uL Normal 0.0-0.8 [facility] Comment on above: Performed By: #### P T, CBC #### [place] [address] [place] Monocytes/100 WBC (Bld) 11.6 % Normal . [facility] Comment on above: Performed By: #### P T, CBC #### [address] Neutrophils (Bld) [#/Vol] 2.8 10*3/uL Normal 1.8-7.7 [facility] Comment on above: Performed By: #### P T, CBC #### [address] Neutrophils/100 WBC (Bld) 55.1 % Normal . [facility] Comment on above: Performed By: #### P T, CBC #### [facility] [address] NRBC% 0.1 /100{WBC} Normal 0-0.5 [facility] Comment on above: Performed By: #### P T, CBC #### [address] Platelet mean volume (Bld) [Entitic vol] 7.5 fL Normal 6.6-10.1 [facility] Comment on above: Performed By: #### P T, CBC #### [address] Platelets (Bld) [#/Vol] 201 10*3/uL Normal 150-450 [facility] Comment on above: Performed By: #### P T, CBC #### [address] RBC (Bld) [#/Vol] 4.09 10*6/uL Normal 3.90-5.60 [facility] Comment on above: Performed By: #### P T, CBC #### [address] WBC (Bld) [#/Vol] 5.1 10*3/uL Normal 4.1-10.[address] [facility] Comment on above: Performed By: #### P T, CBC #### [address] Comprehensive Metabolic Pane weston 10-10-2022 Albumin [Mass/Vol] 4.1 g/dL Normal 3.5-5.[address] [facility] Comment on above: Performed By: #### C MP, MG, HS TROP, A1C WTH eA, LIPID, CBC #### [address] Albumin/Globulin [Mass ratio] 1.6 {ratio} Normal [facility] Comment on above: Performed By: #### C MP, MG, HS TROP, A1C WTH eA, LIPID, CBC #### [facility] [address] ALP [Catalytic activity/Vol] 47 U/L Normal 34-104 [facility] Comment on above: Performed By: #### C MP, MG, HS TROP, A1C WTH eA, LIPID, CBC #### [facility] [address] ALT [Catalytic activity/Vol] 20 U/L Normal 7-52 [facility] Comment on above: Performed By: #### C MP, MG, HS TROP, A1C WTH eA, LIPID, CBC #### [facility] [address] Anion gap [Moles/Vol] 9.5 mmol/L Normal 6.0-15.0 [facility] Comment on above: Performed By: #### C MP, MG, HS TROP, A1C WTH eA, LIPID, CBC #### [facility] [address] AST [Catalytic activity/Vol] 48 U/L High 13-39 [facility] Comment on above: Performed By: #### C MP, MG, HS TROP, A1C WTH eA, LIPID, CBC #### [facility] [address] Bilirubin [Mass/Vol] 0.4 mg/dL Normal 0.3-1.0 [facility] Comment on above: Performed By: #### C MP, MG, HS TROP, A1C WTH eA, LIPID, CBC #### [facility] [address] Calcium [Mass/Vol] 9.1 mg/dL Normal 8.6-10.[address] [facility] Comment on above: Performed By: #### C MP, MG, HS TROP, A1C WTH eA, LIPID, CBC #### [facility] [address] Chloride [Moles/Vol] 108 mmol/L High 98-107 [facility] Comment on above: Performed By: #### C MP, MG, HS TROP, A1C WTH eA, LIPID, CBC #### [facility] [address] CO2 [Moles/Vol] 25.6 mmol/L Normal 21.0-31.0 [facility] Comment on above: Performed By: #### C MP, MG, HS TROP, A1C WTH eA, LIPID, CBC #### [facility] [address] Creatinine [Mass/Vol] 1.04 mg/dL Normal 0.70-1.30 [facility] Comment on above: Performed By: #### C MP, MG, HS TROP, A1C WTH eA, LIPID, CBC #### [facility] [address] Creatinine Clr Calc Pharmacy 83.69 [facility] Comment on above: Performed By: #### C MP, MG, HS TROP, A1C WTH eA, LIPID, CBC #### [facility] [address] [place] [address] [place] GFR/1.73 sq M.predicted MDRD (S/P/Bld) [Vol rate/Area] mL/min/{1.73_m2} [facility] Comment on above: Performed By: #### C MP, MG, HS TROP, A1C WTH eA, LIPID, CBC #### [facility] [address] Globulin (S) [Mass/Vol] 2.6 g/dL [facility] Comment on above: Performed By: #### C MP, MG, HS TROP, A1C WTH eA, LIPID, CBC #### [facility] [address] Glucose [Mass/Vol] 102 mg/dL Normal 74-[address] [facility] Comment on above: Result Comment: [place] Glucose Reference Range is dependent on time and content of last meal. Glucose of more than 200 mg/dL in a nonstressed, ambulatory subject supports the diagnosis of Diabetes Mellitus. ADA recommended reference range Performed By: #### C MP, MG, HS TROP, A1C WTH eA, LIPID, CBC #### [facility] [address] Potassium [Moles/Vol] 4.1 mmol/L Normal 3.5-5.1 [facility] Comment on above: Performed By: #### C MP, MG, HS TROP, A1C WTH eA, LIPID, CBC #### [facility] [address] Protein [Mass/Vol] 6.7 g/dL Normal 6.4-8.[address] [facility] Comment on above: Performed By: #### C MP, MG, HS TROP, A1C WTH eA, LIPID, CBC #### [facility] [address] Sodium [Moles/Vol] 139 mmol/L Normal 136-[address] [facility] Comment on above: Performed By: #### C MP, MG, HS TROP, A1C WTH eA, LIPID, CBC #### [facility] [address] Urea nitrogen [Mass/Vol] 18 mg/dL Normal 7-25 [facility] Comment on above: Performed By: #### C MP, MG, HS TROP, A1C WTH eA, LIPID, CBC #### [address] ECG 12 lead ECGon 10-10-2022 ECG 12 lead ECG [facility] [place] [address] [place] [address] Electrocardiograph Report Signed Patient: Hector Gaspar MR#: [id number] 187 : 1960 Acct:[id number] Age/Sex: 62 / M ADM Date: 10/10/22 Loc: Room: [address] [place] [address] Type: ADM IN Attending Dr: Barbara Rivero [...] Signed By Edilson Cruz DO 10/11 1132 [facility] ECG 12 lead ECG [facility] [place] [address] Electrocardiograph Report Signed Patient: Hector Gaspar Brian MG MR#: [id number] 187 : 1960 Acct:[id number] Age/Sex: 62 / M ADM Date: 10/10/22 Loc: Room: [address] [place] [address] Type: ADM IN Attending Dr: Barbara Rivero [...] Signed By Edilson Cruz DO 10/10 1203 [facility] ECH echo transthoracicon ECH echo transthoracic [facility] Main [place] [address] Echocardiogram Signed Patient: Hector Gaspar SR MR#: [id number] 187 : 1960 Acct:[id number] Age/Sex: 62 / M ADM Date: 10/10/22 Loc: Room: 2T8419-6 Type: ADM IN Attending Dr: Barbara Rivero MD Ordering Provider: Galo Dent MD Date of Service: 10/10/22 ECH/ECH echo transthoracic: NSTMI Copies to: Mohsen Fernandez MD, FACC Galo Dent MD Weight: 224 lb Performed [...] P.0 mmHg RAP systole: 5.0 mmHg ___ Electronically signed by: MOHSEN FERNANDEZ MD, [facility] on 10/10/2022 02:06 PM Transcribed By: SCV Performed At: 10/10/22 0914 Signed By: Mohsen Fernandez MD, FAC 10/10/22 1406 Normal [facility] LIPASEon 10-10-2022 Lipase [Catalytic activity/Vol] 212.0 U/L Normal 73.0-393.0 [facility] Comment on above: Performed By: #### A MY, CMP, LIPA #### [facility] [address] [place] [address] [address] Carrington Chandler Lipid Panelon 10-10-2022 Cholesterol [Mass/Vol] 235 mg/dL High 140-200 [facility] Comment on above: Result Comment: Chol less than 200 mg/dl low risk Chol 201-239 mg/dl borderline risk Chol 240 mg/dl and greater high risk Performed By: #### C MP, MG, HS TROP, A1C WTH eA, LIPID, CBC #### [facility] [address] [place] [address] [place] Cholesterol in HDL [Mass/Vol] 48 mg/dL Normal 29-71 [facility] Comment on above: Result Comment: HDL CHOL ATP-III CLASSIFICATION Cardiovascular Risk HDL > or equal to 60 mg/dL LOW HDL < 40 mg/dL HIGH Performed By: #### C MP, MG, HS TROP, A1C WTH eA, LIPID, CBC #### [facility] [address] [place] [address] [place] Cholesterol.total/Chol esterol in HDL [Mass ratio] 4.9 {ratio} Normal <5.0 [facility] Comment on above: Result Comment: PERF ORMED BY: [place] [address] PATHOLOGIST PRODUCT SUPPORT ANALYST JANETTE DE LA FUENTE M.D. Performed By: #### C MP, MG, HS TROP, A1C WTH eA, LIPID, CBC #### [facility] [address] LDL Cholesterol,Calculated 164 mg/dL High 0-100 [facility] Comment on above: Result Comment: LDL ATP III CLASSIFICATION LDL less than 100 mg/dL Optimal LDL 100-129 mg/dL Near or above optimal LDL 130-159 mg/dL Borderline high LDL 160-189 mg/dL High LDL greater than 189 mg/dL Very high Performed By: #### C MP, MG, HS TROP, A1C WTH eA, LIPID, CBC #### [facility] [address] [place] [address] Triglyceride w/Reflex 116 mg/dL Normal 0-149 [facility] Comment on above: Result Comment: TRIG ATP III CLASSIFICATION TRIG less than 150 mg/dL Normal TRIG 150-199 mg/dL Borderline high TRIG 200-500 mg/dL High TRIG greater than 500 mg/dL Very high Standard traceable to the Center for Disease Conrtrol and Prevention (CDC) test method. Performed By: #### C MP, MG, HS TROP, A1C WTH eA, LIPID, CBC #### [facility] [address] [place] [address] VLDL CHOLESTEROL 23 mg/dL Normal [facility] Comment on above: Performed By: #### C MP, MG, HS TROP, A1C WTH eA, LIPID, CBC #### [facility] [address] [place] [address] [place] Magnesiumon 10-10-2022 Magnesium [Mass/Vol] 2.0 mg/dL Normal 1.9-2.7 [facility] Comment on above: Performed By: #### C MP, MG, HS TROP, A1C WTH eA, LIPID, CBC #### [facility] [address] [place] [address] [place] PROF 14(COMP METB)on 03-18-2 023 Albumin [Mass/Vol] 3.9 g/dL Normal 3.4-5.0 [facility] Comment on above: Performed By: #### A MY, CMP, LIPA #### [facility] [address] [place] [address] [address] Carrington Chandler Albumin/Globulin [Mass ratio] 1.2 {ratio} Normal [facility] Comment on above: Performed By: #### A MY, CMP, LIPA #### [facility] [address] [place] [address] [address] Carrington Chandler ALP [Catalytic activity/Vol] 67 U/L Normal 46-116 [facility] Comment on above: Performed By: #### A MY, CMP, LIPA #### [facility] [address] [place] [address] Dr. Carrington Chandler ALT [Catalytic activity/Vol] 30 U/L Normal 16-63 [facility] Comment on above: Performed By: #### A MY, CMP, LIPA #### [facility] [address] [place] [address] Dr. Carrington Chandler Anion gap [Moles/Vol] 12.8 mmol/L Normal [facility] Comment on above: Performed By: #### A MY, CMP, LIPA #### [facility] [address] [place] [address] Dr. Carrington Chandler AST [Catalytic activity/Vol] 58 U/L Critically high 15-37 [facility] Comment on above: Performed By: #### A MY, CMP, LIPA #### [facility] [address] [place] [address] Dr. Carrington Chandler Bilirubin [Mass/Vol] 0.3 mg/dL Normal 0.2-1.0 [facility] Comment on above: Performed By: #### A MY, CMP, LIPA #### [facility] [address] [place] [address] Dr. Carrington Chandler Calcium [Mass/Vol] 8.9 mg/dL Normal 8.5-10.1 [facility] Comment on above: Performed By: #### A MY, CMP, LIPA #### [facility] [address] [place] [address] [address] Carrington Chandler Chloride [Moles/Vol] 101 mmol/L Normal 98-107 [facility] Comment on above: Performed By: #### A MY, CMP, LIPA #### [facility] [address] [place] [address] [address] Carrington Chandler CO2 [Moles/Vol] 26.0 mmol/L Normal 21.0-32.0 [facility] Comment on above: Performed By: #### A MY, CMP, LIPA #### [facility] [address] [place] [address] [address] Carrington Chandler Creatinine [Mass/Vol] 0.98 mg/dL Normal 0.70-1.30 [facility] Comment on above: Performed By: #### A MY, CMP, LIPA #### [facility] [address] [place] [address] Dr. Carrington Chandler EGFR-AF GABONESE >60 Normal >=60 [facility] Comment on above: Performed By: #### A MY, CMP, LIPA #### [facility] [address] [place] [address] Dr. Carrington Chandler EGFR-NON AF GABONESE >60 Normal >=60 [facility] Comment on above: Performed By: #### A MY, CMP, LIPA #### [facility] [address] [place] [address] Dr. Carrington Chandler Globulin (S) [Mass/Vol] 3.2 g/dL Normal [facility] Comment on above: Performed By: #### A MY, CMP, LIPA #### [facility] [address] [place] [address] Dr. Carrington Chandler Glucose [Mass/Vol] 101 mg/dL Normal 74-106 [facility] Comment on above: Performed By: #### A MY, CMP, LIPA #### [facility] [address] [place] [address] Dr. Carrington Chandler Potassium [Moles/Vol] 3.8 mmol/L Normal 3.5-5.1 [facility] Comment on above: Performed By: #### A MY, CMP, LIPA #### [facility] [address] [place] [address] [address] Carrington Chandler Protein [Mass/Vol] 7.1 g/dL Normal 6.4-8.2 [facility] Comment on above: Performed By: #### A MY, CMP, LIPA #### [facility] [address] [place] [address] Dr. Carrington Chandler Sodium [Moles/Vol] 136 mmol/L Normal 136-145 [facility] Comment on above: Performed By: #### A MY, CMP, LIPA #### [facility] [address] [place] [address] Dr. Carrington Chandler Urea nitrogen [Mass/Vol] 19.0 mg/dL Critically high 7.0-18.0 [facility] Comment on above: Performed By: #### A MY, CMP, LIPA #### [facility] [address] [place] [address] Dr. Carrintgon Chandler Urea nitrogen/Creatinine [Mass ratio] 19.4 mg/mg Normal [facility] Comment on above: Performed By: #### A MY, CMP, LIPA #### [facility] [address] [place] [address] Dr. Carrington Chandler PROTIMEon 10-10-2022 INR Coag (PPP) [Relative time] {INR} Normal [facility] Comment on above: Performed By: #### B MP #### [facility] [address] [place] [address] Dr. Carrington Chandler INR GUIDELINES SEE BELOW Normal [facility] Comment on above: Result Comment: LYNDON RED INR: 2.0 - 3.0 CONDITIONS NOT LISTED BELOW 2.5 - 3.5 FOR PROSTHETIC HEART VALVE REPLACEMENT 2.5 - 3.5 RECURRENT THROMBOSIS Performed By: #### B MP #### [facility] [address] [place] [address] Dr. Carrington Chandler PT Coag (PPP) [Time] 9.7 s Normal 9.0-11.6 [facility] Comment on above: Performed By: #### B MP #### [facility] [address] [place] [address] [address] Carrington Chandler PTTon 10-10-2022 aPTT Coag (Bld) [Time] 29.5 s Normal 22.3-36.2 [facility] Comment on above: Performed By: #### B MP #### [facility] [address] [address] [address] Carrington Chandler Partial Thromboplastin Timeo n 10-10-2022 aPTT Coag (Bld) [Time] 35.9 s Normal 25.1-36.5 [facility] Comment on above: Result Comment: PERF ORMED BY: [place] [address] PATHOLOGIST PRODUCT SUPPORT ANALYST JANETTE DE LA FUENTE M.D. Performed By: #### C MP, MG, HS TROP, A1C WTH eA, LIPID, CBC #### [facility] [address] [place] [address] Prothrombin Time INRon 10-10 INR Coag (PPP) [Relative time] 0.9 {INR} Normal [facility] Comment on above: Result Comment: INR [...] heart valves: 3 - 4.5 PERFORMED BY: [place] [address] PATHOLOGIST PRODUCT SUPPORT ANALYST JANETTE DE LA FUENTE M.D. Performed By: #### P T, CBC #### [facility] [address] [place] [address] [place] PT Coag (PPP) [Time] 10.9 s Normal 9.0-12.9 [facility] Comment on above: Performed By: #### P T, CBC #### [facility] [address] [place] [address] [place] Troponin I High Sensitivityo n 10-10-2022 Troponin I High Sensitivity 7787.7 pg/mL Off scale high 0.0-20.0 [facility] Comment on above: Order Comment: Comme nt Q 3 hrs Result Comment: Resu lts called at 0817 on 10/10/22 --- 10/10/22 0819 --- Trop HS previously reported as: 7787.7 *H pg/mL PERFORMED BY: [facility] [address] [facility] [place] [id number] PATHOLOGIST PRODUCT SUPPORT ANALYST JANETTE DE LA FUENTE M.D. Performed By: #### C MP, MG, HS TROP, A1C WTH eA, LIPID, CBC #### [facility] [address] XR ABD FLAT UP_PA Jean-Pierre 10-10 [...] XIOMARA SCHNEIDER Date: 2022-10-10 00:33 Normal [facility] XR knee RT 3Von 09-09-2022 XR knee RT 3V [facility] [employer] Other XR knee RT 3V [facility] [employer] Other XR knee RT 3V [address] [facility] [employer] Other XR knee RT 3V [address] [employer] Other XR knee RT 3V XRay Report [employer] Other XR knee RT 3V Signed [employer] ! Other XR knee RT 3V Patient: Hector Gaspar SR MR#: [id number] [employer] Other XR knee RT 3V 187 [employer] ! Other XR knee RT 3V : 1960 Acct:[id number] [employer] ! Other XR knee RT 3V Age/Sex: 62 / M ADM Date: 09/09/22 [employer] ! Other XR knee RT 3V Loc: [facility] Room: Type : [facility] [employer] ! Other XR knee RT 3V Attending Dr: Wagner Marrufo DO [employer] ! Other XR knee RT 3V Copies to: Wagner Marrufo DO [employer] ! Other XR knee RT 3V Ordering Provider: Judy Marrufo DO [employer] ! Other XR knee RT 3V Date of Service: 09/09/22 [employer] ! Other XR knee RT 3V XR/XR knee RT 3V - NOT FOR ER USE: Acute pain of right knee [employer] ! Other XR knee RT 3V RIGHT KNEE - 3 views N [email or web address] Other XR knee RT 3V CLINICAL HISTORY: Generalized right knee pain for 2 weeks. [employer] ! Other XR knee RT 3V COMPARISON: None [employer] ! Other XR knee RT 3V FINDINGS: [employer] ! Other XR knee RT 3V Small knee joint effusion. Mild degenerative changes without acute bony process. Presumed loose [employer] ! Other XR knee RT 3V body seen anteriorly within the joint space. [employer] ! Other XR knee RT 3V X R/XR knee RT 3V - NOT FOR ER USE [employer] ! Other XR knee RT 3V IMPRESSION: [employer] Other XR knee RT 3V MILD DEGENERATIVE CH ANGES WITHOUT ACUTE BONY PROCESS. [employer] ! Other XR knee RT 3V Impression dictated by: Parrish Layton Jr., D.O.09/09/2022 3:40 PM [employer] ! Other XR knee RT 3V Dictation Location: [place] [address] [employer] ! Other XR knee RT 3V Transcribed By: PWS 09/09/22 [id number] Other XR knee RT 3V Dictated By: Parrish Layton Jr, DO 09/09/22 1539 [employer] ! Other XR knee RT 3V Signed By: [employer] ! Other XR knee RT 3V 09/09/22 [employer] Other XR knee RT 3V - NOT FOR ER U Al 09-09-2022 XR knee RT 3V - NOT FOR ER USE [facility] [place] [address] [place] [address] XRay Report Signed Patient: Hector Gaspar MR#: [id number] 187 : 1960 Acct:[id number] Age/Sex: 62 / M ADM Date: 09/09/22 Loc: [facility] [place]: Type: [facility] Attending Dr: Wagner Marrufo DO Copies to: [...] PROCESS. Impression dictated by: Parrish Layton Jr., Kannan09/09/2022 3:40 PM Dictation Location: [place] [address] Transcribed By: [facility] 09/09/22 1540 Dictated By: Parrish Layton Jr, DO 09/09/22 1539 Signed By: 09/09/22 1540 [facility] CBC AUTO DIFFon 09-08-2022 BASO # 0.0 103/ul Normal 0.0-0.1 [facility] Comment on above: Performed By: #### C BC #### [facility] [address] [address] [address] Carrington Chandler Basophils/100 WBC (Bld) 0.4 % Normal 0.2-2.0 [facility] Comment on above: Performed By: #### C BC #### [facility] [address] [place] [address] [address] Carrington Chandler EO # 0.3 103/ul Normal 0.0-0.7 [facility] Comment on above: Performed By: #### C BC #### [facility] [address] [address] [address] Carrington Chandler Eosinophils/100 WBC (Bld) 4.9 % Normal 0.9-7.0 [facility] Comment on above: Performed By: #### C BC #### [facility] [address] [address] [address] Carrington Chandler Erythrocyte distribution width (RBC) [Ratio] 14.0 % Normal 11.0-15.0 [facility] Comment on above: Performed By: #### C BC #### [facility] [address] [address] [address] Carrington Chandler Hematocrit (Bld) [Volume fraction] 36.9 % Critically low 42.0-54.0 [facility] Comment on above: Performed By: #### C BC #### [facility] [address] [place] [address] Dr. Carrington Chandler Hemoglobin (Bld) [Mass/Vol] 12.2 g/dL Critically low 14.0-18.0 [facility] Comment on above: Performed By: #### C BC #### [facility] [address] [place] [address] Dr. Carrington Chandler IG # 0.01 10e3/ul Normal 0.00-0.03 [facility] Comment on above: Performed By: #### C BC #### [facility] [address] [place] [address] Dr. Carrington Chandler IG % 0.2 % Normal 0.0-0.5 [facility] Comment on above: Performed By: #### C BC #### [facility] [address] [place] [address] Dr. Carrington Chandler LYMPH # 1.7 103/ul Normal 1.2-3.8 [facility] Comment on above: Performed By: #### C BC #### [facility] [address] [place] [address] Dr. Carrington Chandler Lymphocytes/100 WBC (Bld) 30.6 % Normal 20.5-60.0 [facility] Comment on above: Performed By: #### C BC #### [facility] [address] [place] [address] Dr. Carrington Chandler MANUAL DIFF REQ NO Normal [facility] Comment on above: Performed By: #### C BC #### [facility] [address] [place] [address] Dr. Carrington Chandler MCH (RBC) [Entitic mass] 30.3 pg Normal 25.9-34.0 [facility] Comment on above: Performed By: #### C BC #### [facility] [address] [place] [address] Dr. Carrington Chandler MCHC (RBC) [Mass/Vol] 33.1 g/dL Normal 29.9-35.2 [facility] Comment on above: Performed By: #### C BC #### [facility] [address] [place] [address] Dr. Carrington Chandler MCV (RBC) [Entitic vol] 91.6 fL Normal 80.0-94.0 [facility] Comment on above: Performed By: #### C BC #### [facility] [address] [place] [address] Dr. Carrington Chandler MONO # 0.6 103/ul Normal 0.3-0.8 [facility] Comment on above: Performed By: #### C BC #### [facility] [address] [place] [address] Dr. Carrington Chandler Monocytes/100 WBC (Bld) 9.9 % Normal 1.7-12.0 [facility] Comment on above: Performed By: #### C BC #### [facility] [address] [place] [address] Dr. Carrington Chandler NEUT # 3.0 103/ul Normal 1.4-6.5 [facility] Comment on above: Performed By: #### C BC #### [facility] [address] [place] [address] Dr. Carrington Chandler Neutrophils/100 WBC (Bld) 54.0 % Normal 43.0-75.0 [facility] Comment on above: Performed By: #### C BC #### [facility] [address] [place] [address] Dr. Carrington Chandler Platelet mean volume (Bld) [Entitic vol] 8.9 fL Critically low 9.5-13.5 [facility] Comment on above: Performed By: #### C BC #### [facility] [address] [place] [address] Dr. Carrington Chandler PLT 189 103/ul Normal 150-450 [facility] Comment on above: Performed By: #### C BC #### [facility] [address] [place] [address] Dr. Carrington Chandler RBC 4.03 106/ul Critically low 4.70-6.10 [facility] Comment on above: Performed By: #### C BC #### [facility] [address] [place] [address] Dr. Carrington Chandler WBC 5.5 103/ul Normal 4.0-11.0 [facility] Comment on above: Performed By: #### C BC #### [facility] [address] [address] [address] Carrington Chandler CRPon 09-08-2022 CRP 0.5 mg/dL Normal <=1.0 [facility] Comment on above: Performed By: #### A MY, CMP, LIPA #### [facility] [address] [place] [address] Dr. Carrington Chandler PROF CHEM 8 (BAS METB)on Anion gap [Moles/Vol] 12.7 mmol/L Normal [facility] [place] Comment on above: Performed By: #### A MY, CMP, LIPA #### [facility] [address] [place] [address] Dr. Carrington Chandler Calcium [Mass/Vol] 8.6 mg/dL Normal 8.5-10.1 [facility] Comment on above: Performed By: #### A MY, CMP, LIPA #### [facility] [address] [place] [address] Dr. Carrington Chandler Chloride [Moles/Vol] 102 mmol/L Normal 98-107 [facility] Comment on above: Performed By: #### A MY, CMP, LIPA #### [facility] [address] [place] [address] Dr. Carrington Chandler CO2 [Moles/Vol] 27.2 mmol/L Normal 21.0-32.0 [facility] Comment on above: Performed By: #### A MY, CMP, LIPA #### [facility] [address] [place] [address] Dr. Carrington Chandler Creatinine [Mass/Vol] 1.11 mg/dL Normal 0.70-1.30 [facility] Comment on above: Performed By: #### A MY, CMP, LIPA #### [facility] [address] [place] [address] Dr. Carrington Chandler EGFR-AF GABONESE >60 Normal >=60 [facility] Comment on above: Performed By: #### A MY, CMP, LIPA #### [facility] [address] [address] [address] Carrington Chandler EGFR-NON AF GABONESE >60 Normal >=60 [facility] Comment on above: Performed By: #### A MY, CMP, LIPA #### [facility] [address] [address] [address] Carrington Chandler Glucose [Mass/Vol] 132 mg/dL Critically high 74-106 [facility] Comment on above: Performed By: #### A MY, CMP, LIPA #### [facility] [address] [address] [address] Carrington Chandler Potassium [Moles/Vol] 3.9 mmol/L Normal 3.5-5.1 [facility] Comment on above: Performed By: #### A MY, CMP, LIPA #### [facility] [address] [address] [address] Carrington Chandler Sodium [Moles/Vol] 138 mmol/L Normal 136-145 [facility] Comment on above: Performed By: #### A MY, CMP, LIPA #### [facility] [address] [address] [address] Carrington Chandler Urea nitrogen [Mass/Vol] 18.0 mg/dL Normal 7.0-18.0 [facility] Comment on above: Performed By: #### A MY, CMP, LIPA #### [facility] [address] [address] [address] Carrington Chandler Urea nitrogen/Creatinine [Mass ratio] 16.2 mg/mg Normal [facility] Comment on above: Performed By: #### A MY, CMP, LIPA #### [facility] [address] [address] [address] Carrington Chandler US [place] DOP LEG [...] CYNTHIA VASQUEZ Date: 2022-09-07 22:52 Normal [facility] HEMOGLOBINon 08-10-2022 Hemoglobin (Bld) [Mass/Vol] 13.3 g/dL Critically low 14.0-18.0 [facility] Comment on above: Performed By: #### B MP #### [facility] [address] [place] [address] Dr. Carrington Chandler CBC W MANUAL DIFFon 07-11-20 ATYPICAL LYMPH # 0.65 103/ul Normal [facility] Comment on above: Performed By: #### A MY, CMP, LIPA #### [facility] [address] [place] [address] Dr. Carrington Chandler ATYPICAL LYMPH % 11 % Normal [facility] Comment on above: Performed By: #### A MY, CMP, LIPA #### [facility] [address] [place] [address] Dr. Carrington Chandler BAND # 0.0 103/ul Normal 0.0-0.3 [facility] Comment on above: Performed By: #### A MY, CMP, LIPA #### [facility] [address] [place] [address] Dr. Carrington Chandler BAND % 0 % Normal 0-5 [facility] Comment on above: Performed By: #### A MY, CMP, LIPA #### [facility] [address] [place] [address] Dr. Carrington Chandler BASOM # 0.00 103/ul Normal 0.00-0.10 [facility] Comment on above: Performed By: #### A MY, CMP, LIPA #### [facility] [address] [address] [address] Carrington Chandler BASOM % 0.0 % Critically low 0.2-2.0 [facility] Comment on above: Performed By: #### A MY, CMP, LIPA #### [facility] [address] [address] [address] Carrington Chandler BLAST # Normal [facility] Comment on above: Performed By: #### A MY, CMP, LIPA #### [facility] [address] [place] [address] Dr. Carrington Chandler BLAST % Normal [facility] Comment on above: Performed By: #### A MY, CMP, LIPA #### [facility] [address] [place] [address] Dr. Carrington Chandler CORRECTED WBC Normal 4.0-11.0 [facility] Comment on above: Performed By: #### A MY, CMP, LIPA #### [facility] [address] [address] [address] Carrington Chandler EOS # 0.00 103/ul Normal 0.00-0.70 [facility] Comment on above: Performed By: #### A MY, CMP, LIPA #### [facility] [address] [place] [address] Dr. Carrington Chandler EOS% 0.0 % Critically low 0.9-7.0 [facility] Comment on above: Performed By: #### A MY, CMP, LIPA #### [facility] [address] [place] [address] Dr. Carrington Chandler HCT 34.7 % Critically low 42.0-54.0 [facility] Comment on above: Performed By: #### A MY, CMP, LIPA #### [facility] [address] [place] [address] Dr. Carrington Chandler HGB 11.7 g/dl Critically low 14.0-18.0 [facility] Comment on above: Performed By: #### A MY, CMP, LIPA #### [facility] [address] [place] [address] Dr. Carrington Chandler LYMPHM # 0.12 103/ul Critically low 1.20-3.80 [facility] Comment on above: Performed By: #### A MY, CMP, LIPA #### [facility] [address] [address] [address] Carrington Chandler LYMPHM% 2.0 % Critically low 20.5-60.0 [facility] Comment on above: Performed By: #### A MY, CMP, LIPA #### [facility] [address] [address] [address] Carrington Chandler MCH 29.9 pg Normal 25.9-34.0 [facility] Comment on above: Performed By: #### A MY, CMP, LIPA #### [facility] [address] [place] [address] Dr. Carrington Chandler MCHC 33.7 g/dl Normal 29.9-35.2 [facility] Comment on above: Performed By: #### A MY, CMP, LIPA #### [facility] [address] [place] [address] Dr. Carrington Chandler MCV 88.7 fL Normal 80.0-94.0 [facility] Comment on above: Performed By: #### A MY, CMP, LIPA #### [facility] [address] [place] [address] Dr. Carrington Chandler METAMYELOCYTE # Normal [facility] Comment on above: Performed By: #### A MY, CMP, LIPA #### [facility] [address] [address] [address] Carrington Chandler METAMYELOCYTE % Normal [facility] Comment on above: Performed By: #### A MY, CMP, LIPA #### [facility] [address] [address] [address] Carrington Chandler MONOM# 0.00 103/ul Critically low 0.30-0.80 [facility] Comment on above: Performed By: #### A MY, CMP, LIPA #### [facility] [address] [place] [address] Dr. Carrington Chandler MONOM% 0.0 % Critically low 1.7-12.0 [facility] Comment on above: Performed By: #### A MY, CMP, LIPA #### [facility] [address] [address] [address] Carrington Chandler MPV 9.4 fL Critically low 9.5-13.5 [facility] Comment on above: Performed By: #### A MY, CMP, LIPA #### [facility] [address] [address] [address] Carrington Chandler MYELOCYTE # Normal [facility] Comment on above: Performed By: #### A MY, CMP, LIPA #### [facility] [address] [address] [address] Carrington Chandler MYELOCYTE % Normal [facility] Comment on above: Performed By: #### A MY, CMP, LIPA #### [facility] [address] [place] [address] Dr. Carrington Chandler NRBC Normal [facility] Comment on above: Performed By: #### A MY, CMP, LIPA #### [facility] [address] [address] [address] Carrington Chandler PLT 160 103/ul Normal 150-450 [facility] Comment on above: Performed By: #### A MY, CMP, LIPA #### [facility] [address] [address] [address] Carrington Chandler RBC 3.91 106/ul Critically low 4.70-6.10 [facility] Comment on above: Performed By: #### A MY, CMP, LIPA #### [facility] [address] [address] [address] Carrington Chandler RDW 12.4 % Normal 11.0-15.0 [facility] Comment on above: Performed By: #### A MY, CMP, LIPA #### [facility] [address] [address] [address] Carrington Chandler SEG # 5.13 103/ul Normal 1.40-6.50 [facility] Comment on above: Performed By: #### A MY, CMP, LIPA #### [facility] [address] [address] [address] Carrington Chandler SEG % 87.0 % Critically high 43.0-75.0 [facility] Comment on above: Performed By: #### A MY, CMP, LIPA #### [facility] [address] [address] [address] Carrington Chandler WBC 5.9 103/ul Normal 4.0-11.0 [facility] Comment on above: Performed By: #### A MY, CMP, LIPA #### [facility] [address] [address] [address] Carrington Chandler PROF 14(COMP METB)on 022 Albumin [Mass/Vol] 3.0 g/dL Critically low 3.4-5.0 [facility] Comment on above: Performed By: #### C MP #### [facility] [address] [place] [address] Dr. Carrintgon Chandler Albumin/Globulin [Mass ratio] 0.9 {ratio} Normal [facility] Comment on above: Performed By: #### C MP #### [facility] [address] [place] [address] Dr. Carrington Chandler ALP [Catalytic activity/Vol] 56 U/L Normal 46-116 [facility] Comment on above: Performed By: #### C MP #### [facility] [address] [place] [address] Dr. Carrington Chandler ALT [Catalytic activity/Vol] 21 U/L Normal 16-63 [facility] Comment on above: Performed By: #### C MP #### [facility] [address] [address] [address] Carrington Chandler Anion gap [Moles/Vol] 12.9 mmol/L Normal [facility] [place] Comment on above: Performed By: #### C MP #### [facility] [address] [address] [address] Carrington Chandler AST [Catalytic activity/Vol] 15 U/L Normal 15-37 [facility] Comment on above: Performed By: #### C MP #### [facility] [address] [address] [address] Carrington Chandler Bilirubin [Mass/Vol] 0.2 mg/dL Normal 0.2-1.0 [facility] Comment on above: Performed By: #### C MP #### [facility] [address] [address] [address] Carrington Chandler Calcium [Mass/Vol] 8.1 mg/dL Critically low 8.5-10.1 [facility] [place] Comment on above: Performed By: #### C MP #### [facility] [address] [address] [address] Carrington Chandler Chloride [Moles/Vol] 104 mmol/L Normal 98-107 [facility] Comment on above: Performed By: #### C MP #### [facility] [address] [place] [address] Dr. Carrington Chandler CO2 [Moles/Vol] 24.6 mmol/L Normal 21.0-32.0 [facility] Comment on above: Performed By: #### C MP #### [facility] [address] [place] [address] Dr. Carrington Chandler Creatinine [Mass/Vol] 0.88 mg/dL Normal 0.70-1.30 [facility] Comment on above: Performed By: #### C MP #### [facility] [address] [place] [address] Dr. Carrington Chandler EGFR-AF GABONESE >60 Normal >=60 [facility] Comment on above: Performed By: #### C MP #### [facility] [address] [place] [address] Dr. Carrington Chandler EGFR-NON AF GABONESE >60 Normal >=60 [facility] Comment on above: Performed By: #### C MP #### [facility] [address] [place] [address] Dr. Carrington Chandler Globulin (S) [Mass/Vol] 3.3 g/dL Normal [facility] Comment on above: Performed By: #### C MP #### [facility] [address] [place] [address] Dr. Carrington Chandler Glucose [Mass/Vol] 174 mg/dL Critically high 74-106 [facility] Comment on above: Performed By: #### C MP #### [facility] [address] [address] [address] Carrington Chandler Potassium [Moles/Vol] 3.5 mmol/L Normal 3.5-5.1 [facility] Comment on above: Performed By: #### C MP #### [facility] [address] [place] [address] Dr. Carrington Chandler Protein [Mass/Vol] 6.3 g/dL Critically low 6.4-8.2 [facility] [place] Comment on above: Performed By: #### C MP #### [facility] [address] [place] [address] Dr. Carrington Chandler Sodium [Moles/Vol] 138 mmol/L Normal 136-145 [facility] Comment on above: Performed By: #### C MP #### [facility] [address] [place] [address] Dr. Carrington Chandler Urea nitrogen [Mass/Vol] 17.0 mg/dL Normal 7.0-18.0 [facility] Comment on above: Performed By: #### C MP #### [facility] [address] [place] [address] Dr. Carrington Chandler Urea nitrogen/Creatinine [Mass ratio] 19.3 mg/mg Normal [facility] Comment on above: Performed By: #### C MP #### [facility] [address] [place] [address] Dr. Carrington Chandler CBC AUTO DIFFon 07-10-2022 BASO # 0.0 103/ul Normal 0.0-0.1 [facility] Comment on above: Performed By: #### B MP #### [facility] [address] [place] [address] Dr. Carrington Chandler Basophils/100 WBC (Bld) 0.2 % Normal 0.2-2.0 [facility] Comment on above: Performed By: #### B MP #### [facility] [address] [place] [address] Dr. Carrington Chandler EO # 0.1 103/ul Normal 0.0-0.7 [facility] Comment on above: Performed By: #### B MP #### [facility] [address] [place] [address] Dr. Carrington Chandler Eosinophils/100 WBC (Bld) 2.3 % Normal 0.9-7.0 [facility] Comment on above: Performed By: #### B MP #### [facility] [address] [place] [address] Dr. Carrington Chandler Erythrocyte distribution width (RBC) [Ratio] 12.5 % Normal 11.0-15.0 [facility] Comment on above: Performed By: #### B MP #### [facility] [address] [place] [address] Dr. Carrington Chandler Hematocrit (Bld) [Volume fraction] 36.8 % Critically low 42.0-54.0 [facility] Comment on above: Performed By: #### B MP #### [facility] [address] [place] [address] Dr. Carrington Chandler Hemoglobin (Bld) [Mass/Vol] 12.3 g/dL Critically low 14.0-18.0 [facility] Comment on above: Performed By: #### B MP #### [facility] [address] [place] [address] Dr. Carrington Chandler IG # 0.01 10e3/ul Normal 0.00-0.03 [facility] Comment on above: Performed By: #### B MP #### [facility] [address] [place] [address] Dr. Carrington Chandler IG % 0.2 % Normal 0.0-0.5 [facility] Comment on above: Performed By: #### B MP #### [facility] [address] [place] [address] Dr. Carrington Chandler LYMPH # 1.5 103/ul Normal 1.2-3.8 [facility] Comment on above: Performed By: #### B MP #### [facility] [address] [place] [address] Dr. Carrington Chandler Lymphocytes/100 WBC (Bld) 34.7 % Normal 20.5-60.0 [facility] Comment on above: Performed By: #### B MP #### [facility] [address] [place] [address] Dr. Carrington Chandler MANUAL DIFF REQ NO Normal [facility] Comment on above: Performed By: #### B MP #### [facility] [address] [place] [address] Dr. Carrington Chandler MCH (RBC) [Entitic mass] 29.8 pg Normal 25.9-34.0 [facility] Comment on above: Performed By: #### B MP #### [facility] [address] [place] [address] Dr. Carrington Chandler MCHC (RBC) [Mass/Vol] 33.4 g/dL Normal 29.9-35.2 [facility] Comment on above: Performed By: #### B MP #### [facility] [address] [place] [address] Dr. Carrington Chandler MCV (RBC) [Entitic vol] 89.1 fL Normal 80.0-94.0 [facility] Comment on above: Performed By: #### B MP #### [facility] [address] [place] [address] Dr. Carrington Chandler MONO # 0.5 103/ul Normal 0.3-0.8 [facility] Comment on above: Performed By: #### B MP #### [facility] [address] [place] [address] Dr. Carrington Chandler Monocytes/100 WBC (Bld) 11.0 % Normal 1.7-12.0 [facility] Comment on above: Performed By: #### B MP #### [facility] [address] [place] [address] Dr. Carrington Chandler NEUT # 2.2 103/ul Normal 1.4-6.5 [facility] Comment on above: Performed By: #### B MP #### [facility] [address] [place] [address] Dr. Carrington Chandler Neutrophils/100 WBC (Bld) 51.6 % Normal 43.0-75.0 [facility] Comment on above: Performed By: #### B MP #### [facility] [address] [address] [address] Carrington Chandler Platelet mean volume (Bld) [Entitic vol] 9.0 fL Critically low 9.5-13.5 [facility] Comment on above: Performed By: #### B MP #### [facility] [address] [address] [address] Carrington Chandler PLT 147 103/ul Critically low 150-450 [facility] Comment on above: Performed By: #### B MP #### [facility] [address] [address] [address] Carrington Chandler RBC 4.13 106/ul Critically low 4.70-6.10 [facility] Comment on above: Performed By: #### B MP #### [facility] [address] [place] [address] Dr. Carrington Chandler WBC 4.4 103/ul Normal 4.0-11.0 [facility] Comment on above: Performed By: #### B MP #### [facility] [address] [place] [address] Dr. Carrington Chandler CULTURE SPUTUMon 07-10-2022 CULTURE SPUTUM Culture Observations : NORMAL RESPIRATORY SANDY. Normal [facility] Comment on above: Performed By: #### C MP #### [facility] [address] [place] [address] Dr. Carrington Chandler MAGNESIUMon 07-10-2022 Magnesium [Mass/Vol] 2.0 mg/dL Normal 1.8-2.4 [facility] Comment on above: Performed By: #### C MP #### [facility] [address] [place] [address] Dr. Carrington Chandler PROF 14(COMP METB)on 022 Albumin [Mass/Vol] 2.8 g/dL Critically low 3.4-5.0 [facility] Comment on above: Performed By: #### B MP #### [facility] [address] [place] [address] Dr. Carrington Chandler Albumin/Globulin [Mass ratio] 0.8 {ratio} Normal [facility] Comment on above: Performed By: #### B MP #### [facility] [address] [place] [address] Dr. Carrington Chandler ALP [Catalytic activity/Vol] 55 U/L Normal 46-116 [facility] Comment on above: Performed By: #### B MP #### [facility] [address] [place] [address] Dr. Carrington Chandler ALT [Catalytic activity/Vol] 22 U/L Normal 16-63 [facility] Comment on above: Performed By: #### B MP #### [facility] [address] [place] [address] Dr. Carrington Chandler Anion gap [Moles/Vol] 10.3 mmol/L Normal [facility] Comment on above: Performed By: #### B MP #### [facility] [address] [place] [address] Dr. Carrington Chandler AST [Catalytic activity/Vol] 22 U/L Normal 15-37 [facility] Comment on above: Performed By: #### B MP #### [facility] [address] [place] [address] Dr. Carrington Chandler Bilirubin [Mass/Vol] 0.2 mg/dL Normal 0.2-1.0 [facility] Comment on above: Performed By: #### B MP #### [facility] [address] [place] [address] Dr. Carrington Chandler Calcium [Mass/Vol] 8.0 mg/dL Critically low 8.5-10.1 [facility] Comment on above: Performed By: #### B MP #### [facility] [address] [place] [address] Dr. Carrington Chandler Chloride [Moles/Vol] 105 mmol/L Normal 98-107 [facility] Comment on above: Performed By: #### B MP #### [facility] [address] [place] [address] Dr. Carrington Chandler CO2 [Moles/Vol] 28.1 mmol/L Normal 21.0-32.0 [facility] Comment on above: Performed By: #### B MP #### [facility] [address] [address] [address] Carrington Chandler Creatinine [Mass/Vol] 0.89 mg/dL Normal 0.70-1.30 [facility] Comment on above: Performed By: #### B MP #### [facility] [address] [address] [address] Carrington Chandler EGFR-AF GABONESE >60 Normal >=60 [facility] Comment on above: Performed By: #### B MP #### [facility] [address] [address] [address] Carrington Chandler EGFR-NON AF GABONESE >60 Normal >=60 [facility] Comment on above: Performed By: #### B MP #### [facility] [address] [place] [address] Dr. Carrington Chandler Globulin (S) [Mass/Vol] 3.7 g/dL Normal [facility] Comment on above: Performed By: #### B MP #### [facility] [address] [address] [address] Carrington Chandler Glucose [Mass/Vol] 124 mg/dL Critically high 74-106 [facility] Comment on above: Performed By: #### B MP #### [facility] [address] [address] [address] Carrington Chandler Potassium [Moles/Vol] 3.4 mmol/L Critically low 3.5-5.1 [facility] Comment on above: Performed By: #### B MP #### [facility] [address] [address] [address] Carrington Chandler Protein [Mass/Vol] 6.5 g/dL Normal 6.4-8.2 [facility] Comment on above: Performed By: #### B MP #### [facility] [address] [address] [address] Carrington Chandler Sodium [Moles/Vol] 140 mmol/L Normal 136-145 [facility] Comment on above: Performed By: #### B MP #### [facility] [address] [address] [address] Carrington Chandler Urea nitrogen [Mass/Vol] 15.0 mg/dL Normal 7.0-18.0 [facility] Comment on above: Performed By: #### B MP #### [facility] [address] [address] [address] Carrington Chandler Urea nitrogen/Creatinine [Mass ratio] 16.9 mg/mg Normal [facility] Comment on above: Performed By: #### B MP #### [facility] [address] [address] [address] Carrington Chandler CBC AUTO DIFFon 07-09-2022 BASO # 0.0 103/ul Normal 0.0-0.1 [facility] Comment on above: Performed By: #### A MY, CMP, LIPA #### [facility] [address] [place] [address] Dr. Carrington Chandler Basophils/100 WBC (Bld) 0.2 % Normal 0.2-2.0 [facility] Comment on above: Performed By: #### A MY, CMP, LIPA #### [facility] [address] [address] [address] Carrington Chandler EO # 0.1 103/ul Normal 0.0-0.7 [facility] Comment on above: Performed By: #### A MY, CMP, LIPA #### [facility] [address] [address] [address] Carrington Chandler Eosinophils/100 WBC (Bld) 1.9 % Normal 0.9-7.0 [facility] Comment on above: Performed By: #### A MY, CMP, LIPA #### [facility] [address] [place] [address] Dr. Carrington Chandler Erythrocyte distribution width (RBC) [Ratio] 12.6 % Normal 11.0-15.0 [facility] Comment on above: Performed By: #### A MY, CMP, LIPA #### [facility] [address] [address] [address] Carrington Chandler Hematocrit (Bld) [Volume fraction] 38.8 % Critically low 42.0-54.0 [facility] Comment on above: Performed By: #### A MY, CMP, LIPA #### [facility] [address] [place] [address] Dr. Carrington Chandler Hemoglobin (Bld) [Mass/Vol] 12.9 g/dL Critically low 14.0-18.0 [facility] Comment on above: Performed By: #### A MY, CMP, LIPA #### [facility] [address] [place] [address] Dr. Carrington Chandler IG # 0.01 10e3/ul Normal 0.00-0.03 [facility] Comment on above: Performed By: #### A MY, CMP, LIPA #### [facility] [address] [place] [address] Dr. Carrington Chandler IG % 0.2 % Normal 0.0-0.5 [facility] Comment on above: Performed By: #### A MY, CMP, LIPA #### [facility] [address] [place] [address] Dr. Carrington Chandler LYMPH # 1.7 103/ul Normal 1.2-3.8 [facility] Comment on above: Performed By: #### A MY, CMP, LIPA #### [facility] [address] [place] [address] Dr. Carrington Chandler Lymphocytes/100 WBC (Bld) 34.7 % Normal 20.5-60.0 [facility] Comment on above: Performed By: #### A MY, CMP, LIPA #### [facility] [address] [place] [address] Dr. Carrington Chandler MANUAL DIFF REQ NO Normal [facility] Comment on above: Performed By: #### A MY, CMP, LIPA #### [facility] [address] [place] [address] Dr. Carrington Chandler MCH (RBC) [Entitic mass] 29.9 pg Normal 25.9-34.0 [facility] Comment on above: Performed By: #### A MY, CMP, LIPA #### [facility] [address] [place] [address] Dr. Carrington Chandler MCHC (RBC) [Mass/Vol] 33.2 g/dL Normal 29.9-35.2 [facility] Comment on above: Performed By: #### A MY, CMP, LIPA #### [facility] [address] [place] [address] Dr. Carrington Chandler MCV (RBC) [Entitic vol] 90.0 fL Normal 80.0-94.0 [facility] Comment on above: Performed By: #### A MY, CMP, LIPA #### [facility] [address] [place] [address] Dr. Carrington Chandler MONO # 0.5 103/ul Normal 0.3-0.8 [facility] Comment on above: Performed By: #### A MY, CMP, LIPA #### [facility] [address] [place] [address] Dr. Carrington Chandler Monocytes/100 WBC (Bld) 10.4 % Normal 1.7-12.0 [facility] Comment on above: Performed By: #### A MY, CMP, LIPA #### [facility] [address] [place] [address] Dr. Carrington Chandler NEUT # 2.5 103/ul Normal 1.4-6.5 [facility] Comment on above: Performed By: #### A MY, CMP, LIPA #### [facility] [address] [place] [address] Dr. Carrington Chandler Neutrophils/100 WBC (Bld) 52.6 % Normal 43.0-75.0 [facility] Comment on above: Performed By: #### A MY, CMP, LIPA #### [facility] [address] [place] [address] Dr. Carrington Chandler Platelet mean volume (Bld) [Entitic vol] 9.0 fL Critically low 9.5-13.5 [facility] Comment on above: Performed By: #### A MY, CMP, LIPA #### [facility] [address] [place] [address] Dr. Carrington Chandler PLT 155 103/ul Normal 150-450 [facility] Comment on above: Performed By: #### A MY, CMP, LIPA #### [facility] [address] [address] [address] Carrington Chandler RBC 4.31 106/ul Critically low 4.70-6.10 [facility] Comment on above: Performed By: #### A MY, CMP, LIPA #### [facility] [address] [address] [address] Carrington Chandler WBC 4.8 103/ul Normal 4.0-11.0 [facility] Comment on above: Performed By: #### A MY, CMP, LIPA #### [facility] [address] [address] [address] Carrington Chandler Covid-19 PCR ([facility])on 06-25 SARS-CoV-2 (COVID-19) RNA CHARLIE+probe Ql (Unsp spec) Not detected Normal NOT DETECTED [facility] Comment on above: Result Comment: When [...] for this test is supported by the [place] [employer] and Human Service's declaration that [...] used). Performed By: #### C MP #### [facility] [address] [address] [address] Carrington Chandler ER URINE PROFILEon 2 Bilirubin Ql (U) Negative Normal NEGATIVE [facility] Comment on above: Performed By: #### C MP #### [facility] [address] [place] [address] Dr. Carrington Chandler Clarity (U) CLEAR Normal CLEAR [facility] Comment on above: Performed By: #### C MP #### [facility] [address] [place] [address] Dr. Carrington Chandler Color (U) LT. YELLOW Normal YELLOW [facility] Comment on above: Performed By: #### C MP #### [facility] [address] [place] [address] Dr. Carrington Chandler ERUAHD A micrscopic examina tion will be performed if indicated. Normal [facility] Comment on above: Performed By: #### C MP #### [facility] [address] [place] [address] Dr. Carrington Chandler Glucose Ql (U) Negative Normal NEGATIVE [facility] Comment on above: Performed By: #### C MP #### [facility] [address] [place] [address] Dr. Carrington Chandler Hemoglobin Ql (U) Negative Normal NEGATIVE [facility] Comment on above: Performed By: #### C MP #### [facility] [address] [place] [address] Dr. Carrington Chandler Ketones Ql (U) Negative Normal NEGATIVE [facility] Comment on above: Performed By: #### C MP #### [facility] [address] [place] [address] Dr. Carrington Chandler LEUKOCYTES Negative Normal NEGATIVE [facility] Comment on above: Performed By: #### C MP #### [facility] [address] [place] [address] Dr. Carrington Chandler Nitrite Ql (U) Negative Normal NEGATIVE [facility] Comment on above: Performed By: #### C MP #### [facility] [address] [place] [address] Dr. Carrington Chandler pH (U) 6.0 [pH] Normal 5-9 [facility] Comment on above: Performed By: #### C MP #### [facility] [address] [place] [address] Dr. Carrington Chandler SPEC GRAVITY 1.010 Normal 1.005-<=1. 025 [facility] Comment on above: Performed By: #### C MP #### [facility] [address] [address] [address] Carrington Chandler UA PROTEIN Negative Normal NEGATIVE/ TRACE [facility] Comment on above: Performed By: #### C MP #### [facility] [address] [address] [address] Carrington Chandler UR MICRO IND NOT INDICATED Normal [facility] Comment on above: Performed By: #### C MP #### [facility] [address] [address] [address] Carrington Chandler Urobilinogen Qn (U) 0.2 {Lars'U}/dL Normal 0.2 - 1. 0 [facility] Comment on above: Performed By: #### C MP #### [facility] [address] [place] [address] Dr. Carrington Chandler PROF CHEM 8 (BAS METB)on Anion gap [Moles/Vol] 6.6 mmol/L Normal [facility] Comment on above: Performed By: #### B MP #### [facility] [address] [place] [address] Dr. Carrington Chandler Calcium [Mass/Vol] 8.2 mg/dL Critically low 8.5-10.1 [facility] Comment on above: Performed By: #### B MP #### [facility] [address] [place] [address] Dr. Carrington Chandler Chloride [Moles/Vol] 102 mmol/L Normal 98-107 [facility] Comment on above: Performed By: #### B MP #### [facility] [address] [place] [address] Dr. Carrington Chandler CO2 [Moles/Vol] 31.2 mmol/L Normal 21.0-32.0 [facility] Comment on above: Performed By: #### B MP #### [facility] [address] [place] [address] Dr. Carrington Chandler Creatinine [Mass/Vol] 0.90 mg/dL Normal 0.70-1.30 [facility] Comment on above: Performed By: #### B MP #### [facility] [address] [address] [address] Carrington Chandler EGFR-AF GABONESE >60 Normal >=60 [facility] Comment on above: Performed By: #### B MP #### [facility] [address] [address] [address] Carrington Chandler EGFR-NON AF GABONESE >60 Normal >=60 [facility] Comment on above: Performed By: #### B MP #### [facility] [address] [address] [address] Carrington Chandler Glucose [Mass/Vol] 100 mg/dL Normal 74-106 [facility] Comment on above: Performed By: #### B MP #### [facility] [address] [address] [address] Carrington Chandler Potassium [Moles/Vol] 3.8 mmol/L Normal 3.5-5.1 [facility] Comment on above: Performed By: #### B MP #### [facility] [address] [address] [address] Carrington Chandler Sodium [Moles/Vol] 136 mmol/L Normal 136-145 [facility] Comment on above: Performed By: #### B MP #### [facility] [address] [address] [address] Carrington Chandler Urea nitrogen [Mass/Vol] 16.0 mg/dL Normal 7.0-18.0 [facility] Comment on above: Performed By: #### B MP #### [facility] [address] [address] [address] Carrington Chandler Urea nitrogen/Creatinine [Mass ratio] 17.8 mg/mg Normal [facility] Comment on above: Performed By: #### B MP #### [facility] [address] [place] [address] Dr. Carrington Chandler XR CHEST 1 Von [...] TEE LEWIS Date: 2022-07-09 20:51 Normal [facility] AMYLASEon 07-08-2022 Amylase [Catalytic activity/Vol] 40 U/L Normal 25-115 [facility] Comment on above: Performed By: #### A MY, CMP, LIPA #### [facility] [address] [place] [address] Dr. Carrington Chandler CBC AUTO DIFFon 07-08-2022 BASO # 0.0 103/ul Normal 0.0-0.1 [facility] Comment on above: Performed By: #### C BC #### [facility] [address] [place] [address] Dr. Carrington Chandler Basophils/100 WBC (Bld) 0.3 % Normal 0.2-2.0 [facility] Comment on above: Performed By: #### C BC #### [facility] [address] [place] [address] Dr. Carrington Chandler EO # 0.1 103/ul Normal 0.0-0.7 [facility] Comment on above: Performed By: #### C BC #### [facility] [address] [place] [address] Dr. Carrington Chandler Eosinophils/100 WBC (Bld) 1.2 % Normal 0.9-7.0 [facility] Comment on above: Performed By: #### C BC #### [facility] [address] [place] [address] Dr. Carrington Chandler Erythrocyte distribution width (RBC) [Ratio] 12.9 % Normal 11.0-15.0 [facility] Comment on above: Performed By: #### C BC #### [facility] [address] [place] [address] Dr. Carrington Chandler Hematocrit (Bld) [Volume fraction] 43.2 % Normal 42.0-54.0 [facility] Comment on above: Performed By: #### C BC #### [facility] [address] [place] [address] Dr. Carrington Chandler Hemoglobin (Bld) [Mass/Vol] 14.4 g/dL Normal 14.0-18.0 [facility] Comment on above: Performed By: #### C BC #### [facility] [address] [place] [address] Dr. Carrington Chandler IG # 0.02 10e3/ul Normal 0.00-0.03 [facility] Comment on above: Performed By: #### C BC #### [facility] [address] [place] [address] Dr. Carrington Chandler IG % 0.3 % Normal 0.0-0.5 [facility] Comment on above: Performed By: #### C BC #### [facility] [address] [place] [address] Dr. Carrington Chandler LYMPH # 1.6 103/ul Normal 1.2-3.8 [facility] Comment on above: Performed By: #### C BC #### [facility] [address] [place] [address] Dr. Carrington Chandler Lymphocytes/100 WBC (Bld) 24.0 % Normal 20.5-60.0 [facility] Comment on above: Performed By: #### C BC #### [facility] [address] [place] [address] Dr. Carrington Chandler MANUAL DIFF REQ NO Normal [facility] Comment on above: Performed By: #### C BC #### [facility] [address] [place] [address] Dr. Carrington Chandler MCH (RBC) [Entitic mass] 30.2 pg Normal 25.9-34.0 [facility] Comment on above: Performed By: #### C BC #### [facility] [address] [place] [address] Dr. Carrington Chandler MCHC (RBC) [Mass/Vol] 33.3 g/dL Normal 29.9-35.2 [facility] Comment on above: Performed By: #### C BC #### [facility] [address] [place] [address] Dr. Carrington Chandler MCV (RBC) [Entitic vol] 90.6 fL Normal 80.0-94.0 [facility] Comment on above: Performed By: #### C BC #### [facility] [address] [place] [address] Dr. Carrington Chandler MONO # 0.6 103/ul Normal 0.3-0.8 [facility] Comment on above: Performed By: #### C BC #### [facility] [address] [place] [address] Dr. Carrington Chandler Monocytes/100 WBC (Bld) 9.4 % Normal 1.7-12.0 [facility] Comment on above: Performed By: #### C BC #### [facility] [address] [place] [address] Dr. Carrington Chandler NEUT # 4.4 103/ul Normal 1.4-6.5 [facility] Comment on above: Performed By: #### C BC #### [facility] [address] [place] [address] Dr. Carrington Chandler Neutrophils/100 WBC (Bld) 64.8 % Normal 43.0-75.0 [facility] Comment on above: Performed By: #### C BC #### [facility] [address] [place] [address] Dr. Carrington Chandler Platelet mean volume (Bld) [Entitic vol] 9.5 fL Normal 9.5-13.5 [facility] Comment on above: Performed By: #### C BC #### [facility] [address] [place] [address] Dr. Carrington Chandler PLT 174 103/ul Normal 150-450 [facility] Comment on above: Performed By: #### C BC #### [facility] [address] [place] [address] Dr. Carrington Chandler RBC 4.77 106/ul Normal 4.70-6.10 [facility] Comment on above: Performed By: #### C BC #### [facility] [address] [place] [address] Dr. Carrington Chandler WBC 6.7 103/ul Normal 4.0-11.0 [facility] Comment on above: Performed By: #### C BC #### [facility] [address] [address] [address] Carrington Chandler Covid-19 PCR ([facility])on 06-25 SARS-CoV-2 (COVID-19) RNA CHARLIE+probe Ql (Unsp spec) Not detected Normal NOT DETECTED [facility] Comment on above: Result Comment: When [...] for this test is supported by the [place] [employer] and Human Service's declaration that [...] used). Performed By: #### B MP #### [facility] [address] [place] [address] Dr. Carrington Chandler INFLUENZA A AND B [facility] 07-08 [facility] SEE BELOW Normal [facility] Comment on above: Result Comment: Nega tive for Flu A protein angiten. Infection due to Flu A cannot be ruled out. Flu A angiten in the sample may be below the detection limit of the test. Performed By: #### B MP #### [facility] [address] [place] [address] Dr. Carrington Chandler [facility] Normal [facility] Comment on above: Result Comment: Nega tive for Flu B protein antigen. Infection due to Flu B cannot be ruled out. Flu B antigen in the sample may be below the detection limit of the test. Performed By: #### B MP #### [facility] [address] [place] [address] Dr. Carrington Chandler INFLUENZA A AG Negative Normal NEGATIVE SEE COMMENT [facility] Comment on above: Performed By: #### B MP #### [facility] [address] [place] [address] Dr. Carrington Chandler INFLUENZA B AG Negative Normal NEGATIVE SEE COMMENT [facility] Comment on above: Performed By: #### B MP #### [facility] [address] [address] [address] Carrington Chandler INTERNAL CONTROLS Within Normal Limits Normal Wi thin Normal Limits [facility] Comment on above: Performed By: #### B MP #### [facility] [address] [place] [address] Dr. Carrington Chandler LIPASEon 07-08-2022 Lipase [Catalytic activity/Vol] 195.0 U/L Normal 73.0-393.0 [facility] Comment on above: Performed By: #### A MY, CMP, LIPA #### [facility] [address] [place] [address] Dr. Carrington Chandler PROF 14(COMP METB)on 022 Albumin [Mass/Vol] 3.4 g/dL Normal 3.4-5.0 [facility] Comment on above: Performed By: #### A MY, CMP, LIPA #### [facility] [address] [place] [address] Dr. Carrington Chandler Albumin/Globulin [Mass ratio] 0.8 {ratio} Normal [facility] Comment on above: Performed By: #### A MY, CMP, LIPA #### [facility] [address] [place] [address] Dr. Carrington Chandler ALP [Catalytic activity/Vol] 61 U/L Normal 46-116 [facility] Comment on above: Performed By: #### A MY, CMP, LIPA #### [facility] [address] [place] [address] Dr. Carrington Chandler ALT [Catalytic activity/Vol] 26 U/L Normal 16-63 [facility] Comment on above: Performed By: #### A MY, CMP, LIPA #### [facility] [address] [address] [address] Carrington Chandler Anion gap [Moles/Vol] 11.0 mmol/L Normal [facility] Comment on above: Performed By: #### A MY, CMP, LIPA #### [facility] [address] [address] [address] Carrington Chandler AST [Catalytic activity/Vol] 30 U/L Normal 15-37 [facility] Comment on above: Performed By: #### A MY, CMP, LIPA #### [facility] [address] [address] [address] Carrington Chandler Bilirubin [Mass/Vol] 0.3 mg/dL Normal 0.2-1.0 [facility] Comment on above: Performed By: #### A MY, CMP, LIPA #### [facility] [address] [place] [address] Dr. Carrington Chandler Calcium [Mass/Vol] 8.4 mg/dL Critically low 8.5-10.1 [facility] Comment on above: Performed By: #### A MY, CMP, LIPA #### [facility] [address] [address] [address] Carrington Chandler Chloride [Moles/Vol] 102 mmol/L Normal 98-107 [facility] Comment on above: Performed By: #### A MY, CMP, LIPA #### [facility] [address] [address] [address] Carrington Chandler CO2 [Moles/Vol] 28.1 mmol/L Normal 21.0-32.0 [facility] Comment on above: Performed By: #### A MY, CMP, LIPA #### [facility] [address] [address] [address] Carrington Chandler Creatinine [Mass/Vol] 0.99 mg/dL Normal 0.70-1.30 [facility] Comment on above: Performed By: #### A MY, CMP, LIPA #### [facility] [address] [address] [address] Carrington Chandler EGFR-AF GABONESE >60 Normal >=60 [facility] Comment on above: Performed By: #### A MY, CMP, LIPA #### [facility] [address] [place] [address] Dr. Carrington Chandler EGFR-NON AF GABONESE >60 Normal >=60 [facility] Comment on above: Performed By: #### A MY, CMP, LIPA #### [facility] [address] [address] [address] Carrington Chandler Globulin (S) [Mass/Vol] 4.3 g/dL Normal [facility] Comment on above: Performed By: #### A MY, CMP, LIPA #### [facility] [address] [place] [address] Dr. Carrington Chandler Glucose [Mass/Vol] 107 mg/dL Critically high 74-106 [facility] Comment on above: Performed By: #### A MY, CMP, LIPA #### [facility] [address] [place] [address] Dr. Carrington Chandler Potassium [Moles/Vol] 4.1 mmol/L Normal 3.5-5.1 [facility] Comment on above: Performed By: #### A MY, CMP, LIPA #### [facility] [address] [place] [address] Dr. Carrington Chandler Protein [Mass/Vol] 7.7 g/dL Normal 6.4-8.2 [facility] Comment on above: Performed By: #### A MY, CMP, LIPA #### [facility] [address] [place] [address] Dr. Carrington Chandler Sodium [Moles/Vol] 137 mmol/L Normal 136-145 [facility] Comment on above: Performed By: #### A MY, CMP, LIPA #### [facility] [address] [place] [address] Dr. Carrington Chandler Urea nitrogen [Mass/Vol] 23.0 mg/dL Critically high 7.0-18.0 [facility] Comment on above: Performed By: #### A MY, CMP, LIPA #### [facility] [address] [place], [place] [id number] Dr. Carrington Chandler Urea nitrogen/Creatinine [Mass ratio] 23.2 mg/mg Normal [facility] Comment on above: Performed By: #### A MY, CMP, LIPA #### [facility] [address] [place] [address] Dr. Carrington Chandler CBC AUTO DIFFon 07-03-2022 BASO # 0.0 103/ul Normal 0.0-0.1 [facility] Comment on above: Performed By: #### C MP #### [facility] [address] [place] [address] Dr. Carrington Chandler Basophils/100 WBC (Bld) 0.5 % Normal 0.2-2.0 [facility] Comment on above: Performed By: #### C MP #### [facility] [address] [place] [address] Dr. Carrington Chandler EO # 0.3 103/ul Normal 0.0-0.7 [facility] Comment on above: Performed By: #### C MP #### [facility] [address] [place] [address] Dr. Carrington Chandler Eosinophils/100 WBC (Bld) 4.7 % Normal 0.9-7.0 [facility] Comment on above: Performed By: #### C MP #### [facility] [address] [place] [address] Dr. Carrington Chandler Erythrocyte distribution width (RBC) [Ratio] 12.7 % Normal 11.0-15.0 [facility] Comment on above: Performed By: #### C MP #### [facility] [address] [place] [address] Dr. Carrington Chandler Hematocrit (Bld) [Volume fraction] 38.8 % Critically low 42.0-54.0 [facility] Comment on above: Performed By: #### C MP #### [facility] [address] [place] [address] Dr. Carrington Chandler Hemoglobin (Bld) [Mass/Vol] 13.2 g/dL Critically low 14.0-18.0 [facility] Comment on above: Performed By: #### C MP #### [facility] [address] [place] [address] Dr. Carrington Chandler IG # 0.01 10e3/ul Normal 0.00-0.03 [facility] Comment on above: Performed By: #### C MP #### [facility] [address] [place] [address] Dr. Carrington Chandler IG % 0.2 % Normal 0.0-0.5 [facility] Comment on above: Performed By: #### C MP #### [facility] [address] [place] [address] Dr. Carrington Chandler LYMPH # 1.4 103/ul Normal 1.2-3.8 [facility] Comment on above: Performed By: #### C MP #### [facility] [address] [place] [address] Dr. Carrington Chandler Lymphocytes/100 WBC (Bld) 25.2 % Normal 20.5-60.0 [facility] Comment on above: Performed By: #### C MP #### [facility] [address] [place] [address] Dr. Carrington Chandler MANUAL DIFF REQ NO Normal [facility] Comment on above: Performed By: #### C MP #### [facility] [address] [place] [address] Dr. Carrington Chandler MCH (RBC) [Entitic mass] 30.3 pg Normal 25.9-34.0 [facility] Comment on above: Performed By: #### C MP #### [facility] [address] [place] [address] Dr. Carrington Chandler MCHC (RBC) [Mass/Vol] 34.0 g/dL Normal 29.9-35.2 [facility] Comment on above: Performed By: #### C MP #### [facility] [address] [place] [address] Dr. Carrington Chandler MCV (RBC) [Entitic vol] 89.2 fL Normal 80.0-94.0 [facility] Comment on above: Performed By: #### C MP #### [facility] [address] [place] [address] Dr. Carrington Chandler MONO # 0.6 103/ul Normal 0.3-0.8 [facility] Comment on above: Performed By: #### C MP #### [facility] [address] [address] [address] Carrington Chandler Monocytes/100 WBC (Bld) 10.2 % Normal 1.7-12.0 [facility] Comment on above: Performed By: #### C MP #### [facility] [address] [address] [address] Carrington Chandler NEUT # 3.3 103/ul Normal 1.4-6.5 [facility] Comment on above: Performed By: #### C MP #### [facility] [address] [place] [address] Dr. Carrington Chandler Neutrophils/100 WBC (Bld) 59.2 % Normal 43.0-75.0 [facility] Comment on above: Performed By: #### C MP #### [facility] [address] [place] [address] Dr. Carrington Chandler Platelet mean volume (Bld) [Entitic vol] 9.1 fL Critically low 9.5-13.5 [facility] Comment on above: Performed By: #### C MP #### [facility] [address] [place] [address] Dr. Carrington Chandler PLT 199 103/ul Normal 150-450 [facility] Comment on above: Performed By: #### C MP #### [facility] [address] [address] [address] Carrington Chandler RBC 4.35 106/ul Critically low 4.70-6.10 [facility] Comment on above: Performed By: #### C MP #### [facility] [address] [place] [address] Dr. Carrington Chandler WBC 5.5 103/ul Normal 4.0-11.0 [facility] Comment on above: Performed By: #### C MP #### [facility] [address] [address] [address] Carrington Chandler Covid-19 PCR ([facility])on 12-0 9-2022 SARS-CoV-2 (COVID-19) RNA CHARLIE+probe Ql (Unsp spec) Not detected Normal NOT DETECTED [facility] Comment on above: Result Comment: When [...] for this test is supported by the [place] Former of Health and Human Service's declaration that [...] used). Performed By: #### B MP #### [facility] [address] [place] [address] Dr. Carrington Chandler PROF 14(COMP METB)on 022 Albumin [Mass/Vol] 3.8 g/dL Normal 3.4-5.0 [facility] Comment on above: Performed By: #### C MP #### [facility] [address] [place] [address] Dr. Carrington Chandler Albumin/Globulin [Mass ratio] 1.0 {ratio} Normal [facility] Comment on above: Performed By: #### C MP #### [facility] [address] [place] [address] Dr. Carrington Chandler ALP [Catalytic activity/Vol] 69 U/L Normal 46-116 [facility] Comment on above: Performed By: #### C MP #### [facility] [address] [place] [address] Dr. Carrington Chandler ALT [Catalytic activity/Vol] 18 U/L Normal 16-63 [facility] Comment on above: Performed By: #### C MP #### [facility] [address] [address] [address] Carrington Chandler Anion gap [Moles/Vol] 13.3 mmol/L Normal [facility] Comment on above: Performed By: #### C MP #### [facility] [address] [address] [address] Carrington Chandler AST [Catalytic activity/Vol] 19 U/L Normal 15-37 [facility] Comment on above: Performed By: #### C MP #### [facility] [address] [place] [address] Dr. Carrington Chandler Bilirubin [Mass/Vol] 0.3 mg/dL Normal 0.2-1.0 [facility] Comment on above: Performed By: #### C MP #### [facility] [address] [place] [address] Dr. Carrington Chandler Calcium [Mass/Vol] 9.0 mg/dL Normal 8.5-10.1 [facility] Comment on above: Performed By: #### C MP #### [facility] [address] [place] [address] Dr. Carrington Chandler Chloride [Moles/Vol] 101 mmol/L Normal 98-107 [facility] Comment on above: Performed By: #### C MP #### [facility] [address] [place] [address] Dr. Carrington Chandler CO2 [Moles/Vol] 26.7 mmol/L Normal 21.0-32.0 [facility] Comment on above: Performed By: #### C MP #### [facility] [address] [place] [address] Dr. Carrington Chandler Creatinine [Mass/Vol] 1.06 mg/dL Normal 0.70-1.30 [facility] Comment on above: Performed By: #### C MP #### [facility] [address] [place] [address] Dr. Carrington Chandler EGFR-AF GABONESE >60 Normal >=60 [facility] Comment on above: Performed By: #### C MP #### [facility] [address] [address] [address] Carrington Chandler EGFR-NON AF GABONESE >60 Normal >=60 [facility] Comment on above: Performed By: #### C MP #### [facility] [address] [place] [address] Dr. Carrington Chandler Globulin (S) [Mass/Vol] 3.8 g/dL Normal [facility] Comment on above: Performed By: #### C MP #### [facility] [address] [place] [address] Dr. Carrington Chandler Glucose [Mass/Vol] 98 mg/dL Normal 74-106 [facility] Comment on above: Performed By: #### C MP #### [facility] [address] [place] [address] Dr. Carrington Chandler Potassium [Moles/Vol] 4.0 mmol/L Normal 3.5-5.1 [facility] Comment on above: Performed By: #### C MP #### [facility] [address] [place] [address] Dr. Carrington Chandler Protein [Mass/Vol] 7.6 g/dL Normal 6.4-8.2 [facility] Comment on above: Performed By: #### C MP #### [facility] [address] [place] [address] Dr. Carrington Chandler Sodium [Moles/Vol] 137 mmol/L Normal 136-145 [facility] Comment on above: Performed By: #### C MP #### [facility] [address] [place] [address] Dr. Carrington Chandler Urea nitrogen [Mass/Vol] 21.0 mg/dL Critically high 7.0-18.0 [facility] Comment on above: Performed By: #### C MP #### [facility] [address] [place] [address] Dr. Carrington Chandler Urea nitrogen/Creatinine [Mass ratio] 19.8 mg/mg Normal [facility] Comment on above: Performed By: #### C MP #### [facility] [address] [place] [address] Dr. Carrington Chandler XR CHEST 1 Von [...] CYNTHIA VASQUEZ Date: 2022-07-03 21:16 Normal [facility] CBC AUTO DIFFon 02-03-2022 BASO # 0.0 103/ul Normal 0.0-0.1 [facility] Comment on above: Performed By: #### C BC #### [facility] [address] [place] [address] Dr. Carrington Chandler Basophils/100 WBC (Bld) 0.3 % Normal 0.2-2.0 [facility] Comment on above: Performed By: #### C BC #### [facility] [address] [place] [address] Dr. Carrington Chandler EO # 0.1 103/ul Normal 0.0-0.7 [facility] Comment on above: Performed By: #### C BC #### [facility] [address] [place] [address] Dr. Carrington Chandler Eosinophils/100 WBC (Bld) 0.9 % Normal 0.9-7.0 [facility] Comment on above: Performed By: #### C BC #### [facility] [address] [place] [address] Dr. Carrington Chandler Erythrocyte distribution width (RBC) [Ratio] 13.9 % Normal 11.0-15.0 [facility] Comment on above: Performed By: #### C BC #### [facility] [address] [place] [address] Dr. Carrington Chandler Hematocrit (Bld) [Volume fraction] 40.4 % Critically low 42.0-54.0 [facility] Comment on above: Performed By: #### C BC #### [facility] [address] [place] [address] Dr. Carrington Chandler Hemoglobin (Bld) [Mass/Vol] 13.4 g/dL Critically low 14.0-18.0 [facility] Comment on above: Performed By: #### C BC #### [facility] [address] [place] [address] Dr. Carrington Chandler IG # 0.03 10e3/ul Normal 0.00-0.03 [facility] Comment on above: Performed By: #### C BC #### [facility] [address] [place] [address] Dr. Carrington Chandler IG % 0.3 % Normal 0.0-0.5 [facility] Comment on above: Performed By: #### C BC #### [facility] [address] [place] [address] Dr. Carrington Chandler LYMPH # 1.5 103/ul Normal 1.2-3.8 [facility] Comment on above: Performed By: #### C BC #### [facility] [address] [place] [address] Dr. Carrington Chandler Lymphocytes/100 WBC (Bld) 12.3 % Critically low 20.5-60.0 [facility] Comment on above: Performed By: #### C BC #### [facility] [address] [place] [address] Dr. Carrington Chandler MANUAL DIFF REQ NO Normal [facility] Comment on above: Performed By: #### C BC #### [facility] [address] [place] [address] Dr. Carrington Chandler MCH (RBC) [Entitic mass] 30.0 pg Normal 25.9-34.0 [facility] Comment on above: Performed By: #### C BC #### [facility] [address] [place] [address] Dr. Carrington Chandler MCHC (RBC) [Mass/Vol] 33.2 g/dL Normal 29.9-35.2 [facility] Comment on above: Performed By: #### C BC #### [facility] [address] [address] [address] Carrington Chandler MCV (RBC) [Entitic vol] 90.6 fL Normal 80.0-94.0 [facility] Comment on above: Performed By: #### C BC #### [facility] [address] [address] [address] Carrington Chandler MONO # 1.0 103/ul Critically high 0.3-0.8 [facility] Comment on above: Performed By: #### C BC #### [facility] [address] [place] [address] Dr. Carrington Chandler Monocytes/100 WBC (Bld) 8.5 % Normal 1.7-12.0 [facility] Comment on above: Performed By: #### C BC #### [facility] [address] [place] [address] Dr. Carrington Chandler NEUT # 9.2 103/ul Critically high 1.4-6.5 [facility] Comment on above: Performed By: #### C BC #### [facility] [address] [place] [address] Dr. Carrington Chandler Neutrophils/100 WBC (Bld) 77.7 % Critically high 43.0-75.0 [facility] Comment on above: Performed By: #### C BC #### [facility] [address] [place] [address] Dr. Carrington Chandler Platelet mean volume (Bld) [Entitic vol] 9.5 fL Normal 9.5-13.5 [facility] Comment on above: Performed By: #### C BC #### [facility] [address] [place] [address] Dr. Carrington Chandler PLT 204 103/ul Normal 150-450 [facility] Comment on above: Performed By: #### C BC #### [facility] [address] [place] [address] Dr. Carrington Chandler RBC 4.46 106/ul Critically low 4.70-6.10 [facility] Comment on above: Performed By: #### C BC #### [facility] [address] [place] [address] [address] [address] Carrington Chandler WBC 11.9 103/ul Critically high 4.0-11.0 [facility] Comment on above: Performed By: #### C BC #### [facility] [address] [place] [address] Dr. Carrington Chandler Covid-19 PCR ([facility])on 01-23 SARS-CoV-2 (COVID-19) RNA CHARLIE+probe Ql (Unsp spec) Not detected Normal NOT DETECTED [facility] Comment on above: Result Comment: When [...] for this test is supported by the [place] of Health and Human Service's declaration that [...] used). Performed By: #### C VDTB #### [facility] [address] [place] [address] [id number] [address] Carrington Chandler PROF 14(COMP METB)on 022 Albumin [Mass/Vol] 3.7 g/dL Normal 3.4-5.0 [facility] Comment on above: Performed By: #### C MP #### [facility] [address] [place] [address] Dr. Carrington Chandler Albumin/Globulin [Mass ratio] 0.9 {ratio} Normal [facility] Comment on above: Performed By: #### C MP #### [facility] [address] [address] [address] Carrington Chandler ALP [Catalytic activity/Vol] 62 U/L Normal 46-116 [facility] Comment on above: Performed By: #### C MP #### [facility] [address] [address] [address] Carrington Chandler ALT [Catalytic activity/Vol] 21 U/L Normal 16-63 [facility] Comment on above: Performed By: #### C MP #### [facility] [address] [address] [address] Carrington Chandler Anion gap [Moles/Vol] 12.3 mmol/L Normal [facility] Comment on above: Performed By: #### C MP #### [facility] [address] [address] [address] Carrington Chandler AST [Catalytic activity/Vol] 13 U/L Critically low 15-37 [facility] Comment on above: Performed By: #### C MP #### [facility] [address] [address] [address] Carrington Chandler Bilirubin [Mass/Vol] 0.5 mg/dL Normal 0.2-1.0 [facility] Comment on above: Performed By: #### C MP #### [facility] [address] [address] [address] Carrington Chandler Calcium [Mass/Vol] 9.1 mg/dL Normal 8.5-10.1 [facility] Comment on above: Performed By: #### C MP #### [facility] [address] [address] [address] Carrington Chandler Chloride [Moles/Vol] 102 mmol/L Normal 98-107 [facility] Comment on above: Performed By: #### C MP #### [facility] [address] [address] [address] Carrington Chandler CO2 [Moles/Vol] 24.9 mmol/L Normal 21.0-32.0 [facility] Comment on above: Performed By: #### C MP #### [facility] [address] [address] [address] Carrington Chandler Creatinine [Mass/Vol] 1.36 mg/dL Critically high 0.70-1.30 [facility] Comment on above: Performed By: #### C MP #### [facility] [address] [address] [address] Carrington Chandler EGFR-AF GABONESE >60 Normal >=60 [facility] Comment on above: Performed By: #### C MP #### [facility] [address] [address] [address] Carrington Chandler EGFR-NON AF GABONESE 53 mL/min/1.73m2 Critically low >=60 [facility] Comment on above: Performed By: #### C MP #### [facility] [address] [place] [address] Dr. Carrington Chandler Globulin (S) [Mass/Vol] 3.9 g/dL Normal [facility] Comment on above: Performed By: #### C MP #### [facility] [address] [place] [address] Dr. Carrington Chandler Glucose [Mass/Vol] 138 mg/dL Critically high 74-106 [facility] Comment on above: Performed By: #### C MP #### [facility] [address] [address] [address] Carrington Chandler Potassium [Moles/Vol] 4.2 mmol/L Normal 3.5-5.1 [facility] Comment on above: Performed By: #### C MP #### [facility] [address] [address] [address] Carrington Chandler Protein [Mass/Vol] 7.6 g/dL Normal 6.4-8.2 [facility] Comment on above: Performed By: #### C MP #### [facility] [address] [address] [address] Carrington Chandler Sodium [Moles/Vol] 135 mmol/L Critically low 136-145 [facility] Comment on above: Performed By: #### C MP #### [facility] [address] [address] [address] Carrington Chandler Urea nitrogen [Mass/Vol] 24.0 mg/dL Critically high 7.0-18.0 [facility] Comment on above: Performed By: #### C MP #### [facility] [address] [place], [place] [address] Dr. Carrington Chandler Urea nitrogen/Creatinine [Mass ratio] 17.6 mg/mg Normal [facility] Comment on above: Performed By: #### C MP #### [facility] [id number] Carrington Chandler XR CHEST 1 Von [...] by: DAREK MARX Date: 2022-02-03 02:09 Normal [facility] Vital Signs Date Time Vital Sign Value Performing Clinician Facility 02-24-2024 14:00-0400 Body height 170.18 cm [facility] 02-24-2024 14:00-0400 Body mass index (BMI) [Ratio] 37.7 kg/m2 [facility] 02-24-2024 14:00-0400 Body weight 109.31 kg [facility] 02-24-2024 14:00-0400 Diastolic blood pressure 63 mm[Hg] [facility] 02-24-2024 14:00-0400 Heart rate 99 /min [facility] 02-24-2024 14:00-0400 Systolic blood pressure 99 mm[Hg] [facility] 01-05-2024 12:56-0400 Body height 170.18 cm [facility] 01-05-2024 12:56-0400 Body mass index (BMI) [Ratio] 38.2 kg/m2 [facility] 01-05-2024 12:56-0400 Body weight 110.78 kg [facility] 01-05-2024 12:56-0400 Diastolic blood pressure 66 mm[Hg] [facility] 01-05-2024 12:56-0400 Heart rate 66 /min [facility] 01-05-2024 12:56-0400 SaO2% (BldA) [Mass fraction] 91 % [facility] 01-05-2024 12:56-0400 Systolic blood pressure 108 mm[Hg] [facility] 12-13-2023 13:44-0400 Body height 171.45 cm [facility] 12-13-2023 13:44-0400 Body mass index (BMI) [Ratio] 37.5 kg/m2 [facility] 12-13-2023 13:44-0400 Body weight 110.22 kg [facility] 12-13-2023 13:44-0400 Diastolic blood pressure 60 mm[Hg] [facility] 12-13-2023 13:44-0400 Heart rate 87 /min [facility] 12-13-2023 13:44-0400 SaO2% (BldA) [Mass fraction] 97 % [facility] 12-13-2023 13:44-0400 Systolic blood pressure 102 mm[Hg] [facility] 11-25-2023 14:56-0400 Body height 2042.16 cm [facility] 11-25-2023 14:56-0400 Body mass index (BMI) [Ratio] 0.2 kg/m2 [facility] 11-25-2023 14:56-0400 Body weight 110.22 kg [facility] 11-25-2023 14:56-0400 Diastolic blood pressure 68 mm[Hg] [facility] 11-25-2023 14:56-0400 Heart rate 71 /min [facility] 11-25-2023 14:56-0400 SaO2% (BldA) [Mass fraction] 93 % [facility] 11-25-2023 14:56-0400 Systolic blood pressure 116 mm[Hg] [facility] 10-26-2023 14:31-0400 Body height 171.45 cm [facility] 10-26-2023 14:31-0400 Body mass index (BMI) [Ratio] 37 kg/m2 [facility] 10-26-2023 14:31-0400 Body weight 108.86 kg [facility] [place] [facility] 10-26-2023 14:31-0400 Diastolic blood pressure 65 mm[Hg] [facility] 10-26-2023 14:31-0400 Heart rate 78 /min [facility] 10-26-2023 14:31-0400 SaO2% (BldA) [Mass fraction] 97 % [facility] 10-26-2023 14:31-0400 Systolic blood pressure 103 mm[Hg] [facility] 10-04-2023 15:13-0400 Body height 171.45 cm [facility] 10-04-2023 15:13-0400 Body mass index (BMI) [Ratio] 36.7 kg/m2 [facility] 10-04-2023 15:13-0400 Body weight 108.04 kg [facility] [place] [facility] 10-04-2023 15:13-0400 Diastolic blood pressure 63 mm[Hg] [facility] 10-04-2023 15:13-0400 Heart rate 72 /min [facility] [place] [facility] 10-04-2023 15:13-0400 SaO2% (BldA) [Mass fraction] 93 % [facility] 10-04-2023 15:13-0400 Systolic blood pressure 95 mm[Hg] [facility] 09-14-2023 09:13-0500 Body height 170.2 cm Alok Webber DO Work Phone: [facility] 09-14-2023 09:13-0500 Body mass index (BMI) [Ratio] 36.81 kg/m2 Alok Webber DO Work Phone: [facility] 09-14-2023 09:13-0500 Body weight 106.59 kg Alok Webber DO Work Phone: [facility] 09-14-2023 09:13-0500 Diastolic blood pressure 70 mm[Hg] Alok Webber DO Work Phone: [facility] 09-14-2023 09:13-0500 Heart rate 72 /min Alok Webber DO Work Phone: [facility] 09-14-2023 09:13-0500 Systolic blood pressure 118 mm[Hg] Alok Webber DO Work Phone: [facility] 08-06-2023 13:30-0500 Body height 171.45 cm Brock Modi Other [facility] 08-06-2023 13:30-0500 Body mass index (BMI) [Ratio] 35.95 kg/m2 Brock Modi Other [facility] [employer] Other 08-06-2023 13:30-0500 Body weight 105.69 kg Brock Modi Other [facility] [employer] Other 08-06-2023 13:30-0500 Body weight 105.68 kg [facility] 08-06-2023 13:30-0500 Diastolic blood pressure 66 mm[Hg] Brock Modi Other [facility] 08-06-2023 13:30-0500 SaO2% (BldA) [Mass fraction] 95 % Brock Modi Other [facility] [employer] Other 08-06-2023 13:30-0500 Systolic blood pressure 108 mm[Hg] Brock Modi Other [facility] 08-05-2023 14:23-0500 Diastolic blood pressure 76 mm[Hg] Christopher Sewell MD Work Phone: [employer] 08-05-2023 14:23-0500 Heart rate 70 /min Christopher Sewell MD Work Phone: [employer] 08-05-2023 14:23-0500 Systolic blood pressure 108 mm[Hg] Christopher Sewell MD Work Phone: [employer] 08-05-2023 14:22-0500 Body height 170.2 cm Christopher Sewell MD Work Phone: [employer] 08-05-2023 14:22-0500 Body mass index (BMI) [Ratio] 36.43 kg/m2 Christopher Sewell MD Work Phone: [employer] 08-05-2023 14:22-0500 Body weight 105.51 kg Christopher Sewell MD Work Phone: [employer] 08-05-2023 14:22-0500 Respiratory rate 18 /min Christopher Sewell MD Work Phone: [employer] 06-24-2023 11:00-0500 Body height 171.45 cm Brock Modi Other [employer] Other 06-24-2023 11:00-0500 Body mass index (BMI) [Ratio] 34.56 kg/m2 Brock Modi Other [employer] Other 06-24-2023 11:00-0500 Body temperature 98.1 [degF] Brock Modi Other [employer] Other 06-24-2023 11:00-0500 Body weight 101.61 kg Brock Modi Other [employer] Other 06-24-2023 11:00-0500 Diastolic blood pressure 67 mm[Hg] Brock Modi Other [employer] Other 06-24-2023 11:00-0500 SaO2% (BldA) [Mass fraction] 95 % Brock Modi Other [employer] Other 06-24-2023 11:00-0500 Systolic blood pressure 109 mm[Hg] Brock Modi Other [employer] Other 03-16-2023 11:30-0400 Body height 171.45 cm Brock Modi Other [employer] Other 03-16-2023 11:30-0400 Body mass index (BMI) [Ratio] 33.48 kg/m2 Brock Modi Other [employer] Other 03-16-2023 11:30-0400 Body weight 98.43 kg Brock Modi Other [employer] Other 03-16-2023 11:30-0400 Diastolic blood pressure 67 mm[Hg] Brock Modi Other [employer] Other 03-16-2023 11:30-0400 SaO2% (BldA) [Mass fraction] 93 % Brock Modi Other [employer] Other 03-16-2023 11:30-0400 Systolic blood pressure 114 mm[Hg] Brock Modi Other [employer] Other 02-04-2023 13:30-0400 Body height 171.45 cm Brock Modi Other [employer] Other 02-04-2023 13:30-0400 Body mass index (BMI) [Ratio] 33.64 kg/m2 Brock Modi Other [employer] Other 02-04-2023 13:30-0400 Body weight 98.88 kg Brock Modi Other [employer] Other 02-04-2023 13:30-0400 Diastolic blood pressure 67 mm[Hg] Brock Modi Other [employer] Other 02-04-2023 13:30-0400 SaO2% (BldA) [Mass fraction] 96 % Brock Modi Other [employer] Other 02-04-2023 13:30-0400 Systolic blood pressure 117 mm[Hg] Brock Modi Other [employer] Other 12-24-2022 14:08-0400 Body height 167.64 cm Brock Modi Work Phone: [facility] [employer] DO Work Phone: 12-24-2022 14:08-0400 Body mass index (BMI) [Ratio] 35.02 kg/m2 Brock Modi Work Phone: [facility] [employer] DO Work Phone: 12-24-2022 14:08-0400 Body surface area Derived from formula 2.07 m2 Brock Modi Work Phone: [facility] [employer] DO Work Phone: 12-24-2022 14:08-0400 Body weight 98.43 kg Brock Modi Work Phone: [facility] [employer] DO Work Phone: 12-24-2022 14:08-0400 Diastolic blood pressure 80 mm[Hg] Brock Modi Work Phone: [facility] [employer] [employer] DO Work Phone: 12-24-2022 14:08-0400 Heart rate 115 /min Brock Modi Work Phone: [facility] [employer] DO Work Phone: 12-24-2022 14:08-0400 Systolic blood pressure 124 mm[Hg] Brock Modi Work Phone: [facility] [address] DO Work Phone: 11-27-2022 11:00-0400 Body height 171.45 cm Wagner Marrufo Other [facility] [employer] Other 11-27-2022 11:00-0400 Body mass index (BMI) [Ratio] 33.48 kg/m2 Wagner Marrufo Other [facility] Other 11-27-2022 11:00-0400 Body weight 98.43 kg Wagner Marrufo Other [facility] Other 11-12-2022 12:45-0400 Body height 171.45 cm Brock Modi Other [facility] Other 11-12-2022 12:45-0400 Body mass index (BMI) [Ratio] 33.48 kg/m2 Brock Modi Other [facility] Other 11-12-2022 12:45-0400 Body weight 98.43 kg Brock Modi Other [facility] Other 11-12-2022 12:45-0400 Diastolic blood pressure 78 mm[Hg] Brock Modi Other [facility] Other 11-12-2022 12:45-0400 SaO2% (BldA) [Mass fraction] 92 % Brock Modi Other [facility] Other 11-12-2022 12:45-0400 Systolic blood pressure 122 mm[Hg] Brock Modi Other [facility] Other 10-21-2022 15:18-0400 Body height 167.64 cm Brock Modi Work Phone: [facility] DO Work Phone: 10-21-2022 15:18-0400 Body mass index (BMI) [Ratio] 35.51 kg/m2 Brock Modi Work Phone: [facility] DO Work Phone: 10-21-2022 15:18-0400 Body surface area Derived from formula 2.08 m2 Brock Modi Work Phone: [facility] DO Work Phone: 10-21-2022 15:18-0400 Body weight 99.79 kg Brock Modi Work Phone: [facility] DO Work Phone: 10-21-2022 15:18-0400 Diastolic blood pressure 70 mm[Hg] Brock Modi Work Phone: [facility] DO Work Phone: 10-21-2022 15:18-0400 Heart rate 84 /min Brock Modi Work Phone: [facility] DO Work Phone: 10-21-2022 15:18-0400 Systolic blood pressure 126 mm[Hg] Brock Modi Work Phone: [facility] DO Work Phone: 10-15-2022 11:15-0400 Body height 171.45 cm Brock Modi Other [facility] Other 10-15-2022 11:15-0400 Body mass index (BMI) [Ratio] 33.33 kg/m2 Brock Modi Other [facility] Other 10-15-2022 11:15-0400 Body weight 97.98 kg Brock Modi Other [facility] Other 10-15-2022 11:15-0400 Diastolic blood pressure 84 mm[Hg] Brock Modi Other [facility] Other 10-15-2022 11:15-0400 SaO2% (BldA) [Mass fraction] 94 % Brock Modi Other [facility] Other 10-15-2022 11:15-0400 Systolic blood pressure 122 mm[Hg] Brock Modi Other [facility] Other 10-13-2022 11:57-0400 Body temperature 97.4 [degF] MD Brock Modi Work Phone: [facility] 10-13-2022 11:57-0400 Diastolic blood pressure 85 mm[Hg] MD Brock Modi Work Phone: [facility] 10-13-2022 11:57-0400 Heart rate 107 /min MD Brock Modi Work Phone: [facility] 10-13-2022 11:57-0400 Inhaled oxygen flow rate 2 L/min MD Brock Modi Work Phone: [facility] 10-13-2022 11:57-0400 Respiratory rate 17 /min MD Brock Modi Work Phone: [facility] 10-13-2022 11:57-0400 SaO2% (BldA) [Mass fraction] 97 % MD Brock Modi Work Phone: [facility] 10-13-2022 11:57-0400 Systolic blood pressure 125 mm[Hg] MD Brock Modi Work Phone: [facility] 10-13-2022 04:32-0400 Body weight 97.52 kg MD Brock Modi Work Phone: [facility] 10-10-2022 08:46-0400 65 1 Brock Modi Work Phone: [facility] 250 DO Work Phone: Comment on above: [id number] 10-10-2022 04:57-0400 Body height 170.18 cm MD Brock Modi Work Phone: [facility] 09-09-2022 14:30-0500 Body height 171.45 cm Wagner Marrufo Other [facility] Other 09-09-2022 14:30-0500 Body mass index (BMI) [Ratio] 34.41 kg/m2 Wagner Marrufo Other [facility] Other 09-09-2022 14:30-0500 Body weight 101.15 kg Wagner Marrufo Other [facility] Other 08-13-2022 12:15-0500 Body height 171.45 cm Brock Modi Other [facility] Other 08-13-2022 12:15-0500 Body mass index (BMI) [Ratio] 34.38 kg/m2 Brock Modi Other [facility] Other 08-13-2022 12:15-0500 Body weight 101.06 kg Brock Modi Other [facility] Other 08-13-2022 12:15-0500 Diastolic blood pressure 84 mm[Hg] Brock Modi Other [facility] Other 08-13-2022 12:15-0500 SaO2% (BldA) [Mass fraction] 97 % Brock Modi Other [facility] Other 08-13-2022 12:15-0500 Systolic blood pressure 132 mm[Hg] Brock Modi Other [facility] Other 07-30-2022 12:30-0500 Body height 171.45 cm Brock Modi Other [facility] Other 07-30-2022 12:30-0500 Body mass index (BMI) [Ratio] 32.71 kg/m2 Brock Modi Other [facility] Other 07-30-2022 12:30-0500 Body weight 96.16 kg Brock Modi Other [facility] Other 07-30-2022 12:30-0500 Diastolic blood pressure 80 mm[Hg] Brock Modi Other [facility] Other 07-30-2022 12:30-0500 SaO2% (BldA) [Mass fraction] 97 % Brock oMdi Other [facility] Other 07-30-2022 12:30-0500 Systolic blood pressure 122 mm[Hg] Brock Modi Other [facility] Other Encounters Encounter Date Encounter Type Care Provider Facility Start: 03-03-2024 End: 03-03-2024 [facility] Start: 02-24-2024 End: 02-24-2024 ambulatory [facility] Work Phone: Start: 02-24-2024 End: 02-24-2024 Patient encounter procedure [facility] Physician [facility] Work Phone: Start: 01-05-2024 End: 01-05-2024 ambulatory [facility] Work Phone: Start: 01-05-2024 End: 01-05-2024 Patient encounter procedure [facility] Physician [facility] Work Phone: Start: 12-13-2023 End: 12-13-2023 ambulatory [facility] Work Phone: Start: 12-13-2023 End: 12-13-2023 Patient encounter procedure [facility] Physician [facility] Work Phone: Start: 11-25-2023 End: 11-25-2023 Patient encounter procedure [facility] Physician [facility] Work Phone: Start: 10-26-2023 End: 10-26-2023 ambulatory [facility] Work Phone: Start: 10-26-2023 End: 10-26-2023 Patient encounter procedure [facility] Work Phone: Start: 10-09-2023 Non-patient / Non-visit [facility] Work Phone: Start: 10-04-2023 End: 10-04-2023 Patient encounter procedure [facility] Work Phone: Start: 10-04-2023 Non-patient / Non-visit [facility] Physician [facility] Work Phone: Start: 10-04-2023 End: 10-04-2023 ambulatory [facility] Start: 09-14-2023 End: 09-14-2023 ambulatory [facility] Ambulatory Start: 09-14-2023 End: 09-14-2023 Office outpatient visit 15 minutes [facility] DO Work Phone: [facility] Comment on above: Atherosclerosis of n ative coronary artery of [place] heart without angina pectoris; Essential hypertension, benign; Mixed hyperlipidemia; Ischemic cardiomyopathy; Past myocardial infarction; Moderate chronic obstructive pulmonary disease (CMS/HCC); Obesity (BMI 35.0-39.9 without comorbidity); Current smoker Start: 09-03-2023 End: 09-03-2023 ambulatory Brock Modi Other [facility] Other Start: 09-03-2023 Telephone encounter Brock Modi [facility] Start: 08-24-2023 Orders Only Kendal Carmen LPN [facility] Comment on above: Abdominal aortic ane urysm (AAA) without rupture, unspecified part (CMS-HCC) (Primary Dx); Obstructive chronic bronchitis with exacerbation (CMS-HCC); Obesity with body mass index (BMI) of 30.0 to 39.9 Start: 08-06-2023 End: 08-06-2023 ambulatory Brock Ly Other [facility] Other Start: 08-06-2023 Office outpatient vi sit 15 minutes Brock Modi [facility] Start: 08-06-2023 End: 08-06-2023 Patient encounter procedure [facility] Work Phone: Start: 08-05-2023 End: 08-05-2023 ambulatory CHRISTOPHER SEWELL [facility] Other Start: 08-05-2023 Telephone encounter Brock Modi [facility] Start: 08-05-2023 End: 08-05-2023 Office outpatient visit [...] (CMS-HCC) Start: 07-16-2023 End: 07-16-2023 ambulatory Brock Ly Other [facility] Other Start: 07-16-2023 Telephone encounter Brock Modi [facility] Start: 06-24-2023 End: 06-24-2023 ambulatory Brock Ly Other [facility] Other Start: 06-24-2023 Office outpatient vi sit 15 minutes Brock Modi [facility] Start: 04-07-[address] Alok chauhan [place] Facility: Start: 04-02-2023 End: 04-02-2023 ambulatory Brock Modi Other [facility] Other Start: 04-02-2023 Telephone encounter Brock Modi [facility] Start: 03-19-2023 End: 03-19-2023 ambulatory Brock Modi Other [facility] Other Start: 03-19-2023 Telephone encounter Brock Modi [facility] Start: 03-16-2023 End: 03-16-2023 ambulatory Brock Modi Other [facility] Other Start: 03-16-2023 Office outpatient vi sit 15 minutes Brock Modi [facility] Start: 02-04-2023 End: 02-04-2023 ambulatory Brock Modi Other [facility] Other Start: 02-04-2023 Office outpatient vi sit 15 minutes Brock Modi [facility] Start: 01-29-2023 End: 01-29-2023 ambulatory Viral Yang Other [facility] Other Start: 01-29-2023 Telephone encounter Viral Yang [facility] Start: 01-27-2023 Rx Renewal Brock Modi [facility] Work Phone: Start: 01-19-2023 Patient encounter procedure Brock Modi Work Phone: [facility] [place] Work Phone: Start: 01-14-2023 End: 01-14-2023 ambulatory Brock Modi Other [facility] Other Start: 01-14-2023 Telephone encounter Brock Modi [facility] Start: 12-24-2022 Office outpatient vi sit 40 minutes Brock Modi Work Phone: [facility] DO Work Phone: Start: 12-24-[address] Alok chauhan [place] Facility: Start: 12-04-2022 End: 12-04-2022 ambulatory Brock Modi Other [facility] Other Start: 12-04-2022 Telephone encounter Brock Modi [facility] Start: 12-03-2022 End: 12-03-2022 ambulatory Brock Modi Other [facility] Other Start: 12-03-2022 Telephone encounter Brock Modi [facility] Start: 11-27-2022 End: 11-27-2022 ambulatory Wagner Marrufo Other [facility] Other Start: 11-27-2022 Office outpatient vi sit 25 minutes Wagner Marrufo [facility] Start: 11-12-2022 End: 11-12-2022 ambulatory Brock Modi Other [facility] Other Start: 11-12-2022 Office outpatient vi sit 15 minutes Brock Modi [facility] Start: 11-04-2022 ambulatory JANINE Burton ty:H1 Start: 11-03-2022 End: 11-03-2022 ambulatory Adi Campos Facility:[facility] Start: 11-03-2022 End: 11-03-2022 ambulatory MD Brock Modi Work Phone: [facility] Work Phone: Start: 11-03-2022 End: 11-03-2022 Patient encounter procedure MD Brock Modi Work Phone: [facility] [place] Work Phone: Start: 11-02-2022 Patient encounter procedure Brock Modi Work Phone: [facility] 250 DO Work Phone: Start: 11-02-2022 ambulatory Janine Cunha Facility:1 [id number] Start: 10-29-2022 Chart Update Brock Modi Work Phone: [facility] DO Work Phone: Start: 10-28-2022 End: 10-28-2022 ambulatory Janine Cunha Facility:[facility] Start: 10-28-2022 End: 10-28-2022 ambulatory MD Brock Modi Work Phone: [facility] Work Phone: Start: 10-28-2022 End: 10-28-2022 Patient encounter procedure MD Brock Modi Work Phone: [facility] [place] Work Phone: Start: 10-27-2022 End: 10-27-2022 ambulatory Brock Modi Other [facility] Other Start: 10-27-2022 Telephone encounter Brock Modi [facility] Start: 10-21-2022 Transitional care juan diego neri srvc 14 day discharge Brock Modi Work Phone: [facility] 250 DO Work Phone: Start: 10-21-2022 End: 10-21-2022 ambulatory Janine Cunha [facility] Other Start: 10-21-2022 Telephone encounter Adi Campos [facility] Start: 10-20-2022 End: 10-20-2022 ambulatory Adi Campos Other [facility] Other Start: 10-20-2022 Office outpatient ne w 45 minutes Adi Campos [facility] Start: 10-15-2022 End: 10-15-2022 ambulatory Brock Modi Other [facility] Other Start: 10-15-2022 Office outpatient vi sit 15 minutes Brock Modi [facility] Start: 10-10-[address] Brock Modi Facility:[id number] Start: 10-10-2022 End: 10-13-2022 Evaluation and management of inpatient Farida Berrios Facility:[facility] Start: 10-10-2022 End: 10-13-2022 Evaluation and management of inpatient MD Brock Modi Work Phone: [facility] [place] [facility] Work Phone: Start: 10-10-2022 End: 10-10-2022 ambulatory COLIN TREADWELL Facility:H1 Start: 09-09-2022 End: 09-09-2022 ambulatory Wagner Marrufo Facility:[facility] Start: 09-09-2022 Office outpatient ne w 45 minutes Wagner Marrufo [facility] Start: 09-09-2022 End: 09-09-2022 ambulatory DO Wagner Marrufo Work Phone: [facility] Work Phone: Start: 09-09-2022 End: 09-09-2022 Patient encounter procedure DO Wagner Marrufo Work Phone: [facility] Start: 09-07-2022 End: 09-08-2022 ambulatory COLIN TREADWELL Facility:H1 Start: 08-13-2022 End: 08-13-2022 ambulatory Brock Modi Other [facility] Other Start: 08-13-2022 Office outpatient vi sit 15 minutes Brock Modi [facility] Start: 08-10-2022 End: 08-11-[address] BROCK MODI Facility:H1 Start: 07-30-2022 End: 07-30-2022 ambulatory Brock Modi Other [facility] Other Start: 07-30-2022 Office outpatient vi sit 25 minutes Brock Modi [facility] Start: 07-28-2022 End: 07-28-2022 ambulatory Brock Modi Other [facility] Other Start: 07-28-2022 Telephone encounter Brock Modi [facility] [employer] Start: 07-10-2022 End: 07-11-[address] CAR LIGHT Facility:H1 Start: 07-08-2022 End: 07-08-[address] JANELLE Moser Facility:H1 Start: 07-05-2022 End: 07-05-[address] RUBÉN DALY Facility:H1 Start: 07-03-2022 End: 07-04-[address] ARLIN CUNHA Facility:H1 Start: 02-03-2022 End: 02-03-[address] ARLIN CUNHA Facility:H1 Patient encounter status Brock Modi Work Phone: [facility] 250 DO Work Phone: Procedures Date Procedure [...] Treatment Date Care Activity Detail Author Start: 10-16-2025 Pneumococcal Vaccine : Pediatrics (0 to 5 Years) and At-Risk Patients (6 to 64 Years) (3 - PPSV23 or PCV20) Pneumococcal Vaccine: Pediatrics (0 to 5 Years) and At-Risk Patients (6 to 64 Years) (3 - PPSV23 or PCV20) [facility] Start: 09-20-2024 End: 09-20-2024 Patient encounter procedure 09/20/2024 9:00 AM EST Office Visit [facility] [address] [facility] [address] [place] [id number] Alok Webber DO [address] [facility] [address] [place] [address] [facility] Start: 08-05-2024 Adult BMI Screening Adult BMI Screen ing [facility] Start: 08-05-2024 Tobacco Screening Tobacco Screening [facility] Start: 02-17-2024 End: 02-17-2024 Patient encounter procedure 02/17/2024 10:10 AM EDT Office Visit [facility] [address] [place] [address] Rom Pierre MD [address], [address] [address] [facility] Start: 09-05-2023 Tobacco Counseling Tobacco Counselin g [facility] Start: 08-24-2023 End: 08-24-2024 CTA Abdominal vessels and Pelvis vessels W contrast IV CT angiogram abdomen and pelvis Imaging Routine Abdominal Aortic Aneurysm (Aaa) Without Rupture, Unspecified Part ([facility]) Obstructive chronic bronchitis with exacerbation ([facility]) Obesity with body mass index (BMI) of 30.0 to 39.9 Expected: 08/24/2023, Expires: 08/24/2024 [facility] Work Phone: Comment on above: Expected: 08/24/2023 , Expires: 08/24/2024 Start: 08-22-2023 End: 08-22-2024 CTA Abdominal vessels and Pelvis vessels W contrast IV CT angiogram abdomen and pelvis Imaging Routine Abdominal Aortic Aneurysm (Aaa) Without Rupture, Unspecified Part ([facility]) Obstructive chronic bronchitis with exacerbation ([facility]) Obesity with body mass index (BMI) of 30.0 to 39.9 Chronic obstructive pulmonary disease, unspecified COPD type ([facility]) Expected: 08/22/2023, Expires: 08/22/2024 [facility] Work Phone: Comment on above: Expected: 08/22/2023 , Expires: 08/22/2024 Start: 04-07-2023 FUV, Provider: Alok Webber, Status: Pen, Time: 11:20 AM FUV, Provider: Alok Webber, Status: Pen, Time: 11:20 AM -[facility] DO Work Phone: Start: 03-26-[address] [facility] Start: 01-19-2023 FUV, Provider: Alok Webber, Status: Pen, Time: 2:30 PM FUV, Provider: Alok Webber, Status: Pen, Time: 2:30 PM -[facility] DO Work Phone: Start: 11-02-2022 HOLTER 48, Provider: VERONICA LANGLEY [employer]KE [employer]SEMBLER 1,[id number], Status: Pen, Time: 2:30 PM HOLTER 48, Provider: VERONICA LANGLEY BRAKE ASSEMBLER 1,[id number], Status: Pen, Time: 2:30 PM [facility] DO Work Phone: Start: 10-13-2022 [facility] Start: 10-10-2022 Dilation of Coronary Artery, Two Arteries with Three Drug-eluting Intraluminal Devices, Percutaneous Approach Dilation of Coronary Artery, Two Arteries with Three Drug-eluting Intraluminal Devices, Percutaneous Approach [facility] Start: 10-10-2022 Fluoroscopy of Left Heart using Low Osmolar Contrast Fluoroscopy of Left Heart using Low Osmolar Contrast [facility] Start: 10-10-2022 Fluoroscopy of Multi ple Coronary Arteries using Low Osmolar Contrast Fluoroscopy of Multiple Coronary Arteries using Low Osmolar Contrast [facility] Start: 10-10-2022 Measurement of Cardi ac Sampling and Pressure, Left Heart, Percutaneous Approach Measurement of Cardiac Sampling and Pressure, Left Heart, Percutaneous Approach [facility] Start: 10-10-2022 Hospital admission [facility] Start: 10-10-2022 [facility] Start: 10-10-2022 Hospital admission [facility] Start: 10-10-2022 [facility] Start: 2010 Administration of varicella zoster vaccine Zoster (Shingles) Vaccine (1 of 2) [facility] Start: 2010 Zoster Vaccines (1 of 2) Zoste r Vaccines (1 of 2) [facility] Start: 1982 DTaP/Tdap/Td Vaccine s (1 - Tdap) DTaP/Tdap/Td Vaccines (1 - Tdap) [facility] Start: 1979 DTaP,Tdap and Td Vac cines (1 - Tdap) DTaP,Tdap and Td Vaccines (1 - Tdap) [facility] Start: 1978 Adult BMI Follow Up Plan Adult BMI Follow Up Plan [facility] Start: 1978 Diabetes mellitus screening Diabetes Screening [facility] Start: 1978 Hepatitis C screening Hepatitis C Sc reening [facility] Start: 1972 Depression Screening Depression Scre ening [facility] Start: 1961 MMR Vaccines (1 of 1 - Standard series) MMR Vaccines (1 of 1 - Standard series) [facility] Start: 1960 COVID-19 Vaccine (#1) COVID-19 Vacci ne (#1) [facility] Start: 1960 HIV screening HIV Screening [facility] Start: 1960 Lipid panel Lipid Panel [facility] Start: 1960 Screening for malign ant neoplasm of colon [facility] Start: 1960 Yearly Adult Physical Yearly Adult P hysical [facility] End: 08-22-2024 Creatinine includes GFR, serum Creatinine includes GFR, serum Lab Routine Abdominal Aortic Aneurysm (Aaa) Without Rupture, Unspecified Part ([facility]) Obstructive chronic bronchitis with exacerbation ([facility]) Obesity with body mass index (BMI) of 30.0 to 39.9 Chronic obstructive pulmonary disease, unspecified COPD type (CMS-[facility]) 1 Occurrences starting 08/22/2023 until 08/22/2024 [employer] Comment on above: 1 Occurrences starti ng 08/22/2023 until 08/22/2024 End: 08-24-2024 Creatinine includes GFR, serum Creatinine includes GFR, serum Lab Routine Abdominal Aortic Aneurysm (Aaa) Without Rupture, Unspecified Part ([facility]) Obstructive chronic bronchitis with exacerbation ([facility]) Obesity with body mass index (BMI) of 30.0 to 39.9 1 Occurrences starting 08/24/2023 until 08/24/2024 [facility] Work Phone: Comment on above: 1 Occurrences starti ng 08/24/2023 until 08/24/2024 Patient Education Coronary Angio plasty (DC) Coronary Stenting (DC) Angina (DC) Chest Pain (DC) Drug Eluting Stents [facility] Work Phone: Patient referral [facility] Work Phone: [place] Lower extremity v ein - right [facility] Immunizations Immunization Date Immunization Notes Care Provider Fa cility 05-02-2018 pneumococcal Conjuga te, unspecified formulation; Translations: [Need for prophylactic vaccination against Streptococcus pneumoniae (pneumococcus)] Brock Modi Other [facility] Other 05-02-2018 pneumococcal polysaccharide vaccine, 23 valent Brock Modi Work Phone: [facility] 05-26-2017 pneumococcal conjuga te vaccine, 13 valent Brock Modi Work Phone: [facility] Payers Date Payer Category Payer Medicaid [facility] MEDICAID [facility] [id number] 2022-Present [address] [place] [address] [id number] 2022 Medicaid [id number] 2022 Self-pay 2019 Unknown 1960 Unknown [id number] 2.16.840.1.975216.3.579.2.593 1960 Unknown [id number] 2.16.840.1.526888.3.579.2.593 1960 Unknown [id number] 2.16.840.1.774404.3.579.2.593 1960 Unknown [id number] 2.16.840.1.151536.3.579.2.593 1960 Unknown [id number] 2.16.840.1.686369.3.579.2.593 1960 Unknown [id number] 2.16.840.1.716430.3.579.2.593 1960 Unknown [id number] 2.16.840.1.468365.3.579.2.593 1960 Unknown [id number] 2.16.840.1.004100.3.579.2.593 1960 Unknown [id number] 2.16.840.1.407724.3.579.2.593 1960 Unknown [id number] 2.16.840.1.623612.3.579.2.356 1960 Unknown [id number] 2.16.840.1.566766.3.579.2.356 1960 Unknown [id number] 2.16.840.1.131497.3.579.2.356 1960 Unknown [id number] 2.16.840.1.410584.3.579.2.356 1960 Unknown [id number] 2.16.840.1.662560.3.579.2.356 1960 Unknown [id number] 2.16.840.1.600960.3.579.2.1286 1960 Unknown [id number] 2.16.840.1.351534.3.579.2.1244 1960 Unknown [id number] 2.16.840.1.052924.3.579.2.1286 1960 Unknown [id number] 2.16.840.1.467642.3.579.2.1286 1959 Unknown [id number] 2.16.840.1.465164.19 Unknown [id number] 2.16.840.1.539623.3.579.2.531 Unknown [id number] 2.16.840.1.620191.3.579.2.531 Unknown [id number] 2.16.840.1.804581.3.579.2.531 Unknown [id number] 2.16.840.1.543603.3.579.2.531 Social History Date Type Detail Facility Tobacco smoking stat [facility] Unknown if ever smoked [facility] Work Phone: Start: 1960 Sex Assigned At Male F [facility] Start: 08-05-2023 End: 08-06-2023 Sex Assigned At [facility] Atticous Other Start: 10-10-2022 Tobacco smoking stat [facility] Smoker (finding) [facility] Start: 08-26-2022 End: 08-06-2023 Daily caffeine consumption Daily caffeine consumption -[facility] [address] DO Work Phone: Comment on above: 1/2 gallon coffee da darrion; 5-6 cig daily; 8 cigs daily; Start: 08-26-2022 End: 09-14-2023 Tobacco smoking status GAIS Smokes tobacco daily [facility] Start: 08-08-1991 History of tobacco use [facility] Start: 08-26-2022 Tobacco use and exposure Smokeless tobacco non-user [facility] Start: 08-05-2023 End: 09-14-2023 Alcohol intake Lifetime non-drinker (finding) [facility] Within the past 12 months we worried whether our food would run out before we got money to buy more. Never True [facility] Start: 08-26-2022 Tobacco Comment pack and a nathanael f a day pt reports he is really trying to quit 09/04/21 [facility] Start: 1960 Sex Assigned At Not on file P [employer] Start: 09-04-2023 End: 09-14-2023 Exposure to SARS-CoV-2 (event) Not sure [facility] Medical Equipment Procedure Code Equipment Code Equipment Origin al Text Equipment Identifier Dates Drug-eluting coronary artery stent, xpq-fzwowhghalwel-cs lymer-coated ()[id number] FDA Start: 10-10-2022 Drug-eluting coronary artery stent, uzm-hejephxuvyvml-hi lymer-coated ()[id number] FDA Start: 10-10-2022 Drug-eluting coronary artery stent, zii-cxelkatqquezk-tk lymer-coated ()[id number] FDA Start: 10-10-2022 Goals Date Patient Goal Desired Activity /State Functional Status Date Assessment Result Facility 10-13-2022 Functional status Patient at Baseline [facility] Work Phone: Mental Status Date Assessment Result Facility 10-13-2022 Cognitive function Cognitive Sta tus Patient at Baseline [facility] Work Phone: Clinical Notes 07-30-2022 [...] ASHD; patient sustained high risk non-ST elevation OK in October 10, 2022 with primary revascularization [...] remains compliant on current DAPT and post OK therapies Recommendations: Discontinue ticagrelor, switch to clopidogrel [...] Disp: , Rfl: Assessment/Plan 1. Atherosclerosis of [place] coronary artery of ak[place] heart without angina pectoris 2. Essential hypertension, benign 3. Mixed hyperlipidemia 4. Ischemic cardiomyopathy 5. Past myocardial infarction 6. Moderate chronic obstructive pulmonary disease (CMS/HCC) 7. Obesity (BMI 35.0-39.9 without comorbidity) 8. Current smoker Scribe Attestation By signing my name below, I, Kate Leal LPN , Scribe attest that this documentation [...] discussion and plan. documented in this encounter [facility] Work Phone: 09-14-2023 Instructions Kate Cruz LPN [...] instructions on exercise. documented in this encounter [facility] Work Phone: 08-06-2023 Evaluation note Encounter Date [...] 6 months with imaging at that time. [facility] Other 01-11-2024 History of Present illness Narrative* [...] aneurysm (AAA) without rupture, unspecified part ([facility]) - [facility] [place] [facility] CT angiogram abdomen and pelvis; Future - Creatinine includes GFR, serum; Future Obstructive chronic bronchitis with exacerbation ([facility]) - CT angiogram abdomen and pelvis; Future - Creatinine includes GFR, serum; Future Obesity with body mass index (BMI) of 30.0 to 39.9 - CT angiogram abdomen and pelvis; Future - Creatinine includes GFR, serum; Future Chronic obstructive pulmonary disease, unspecified COPD type ([facility]) - CT angiogram abdomen and pelvis; Future - Creatinine includes GFR, serum; Future Patient with infrarenal abdominal aortic aneurysm. His most recent duplex ultrasound shows 5.2 cm and that was in June of 2023. At this point I will see him back in 6 months with a follow-up CT angiogram. [facility]* Encounter Date Diagnosis Assessment Notes Treatment Notes Treatment Clinical Notes Jun, Abdominal aortic aneurysm (AAA) without rupture, unspecified part (ICD-10 - I71.40) [facility] Other 11-30-2023 Evaluation note* Encounter Date Diagnosis Assessment Notes Treatment Notes Treatment Clinical Notes May, Abdominal aortic aneurysm (AAA) without rupture, unspecified part (ICD-10 - I71.40) Pt requests order as he is overdue for recheckUS. May, Bronchitis (ICD-10 - J40) Finish meds and treatment plan ordered by ER recently. Pt understands as he is improving. [facility] Other 08-25-2023 Evaluation note* Encounter Date Diagnosis Assessment Notes Treatment Notes Treatment Clinical Notes Feb, Acute cystitis without hematuria (ICD-10 - N30.00) [facility] Other 08-22-2023 Evaluation note* Encounter Date Diagnosis Assessment Notes Treatment Notes Treatment Clinical Notes Feb, Penile discharge (ICD-10 - R36.9) Pt request STI testing Feb, Dysuria (ICD-10 - R30.0) Rule out UTI based on symptoms. Will call w results. Push fluids. Feb, Chronic obstructive pulmonary disease, unspecified (ICD-10 - J44.9) Clinical diagnosis secondary to [id number] history of tobacco abuse. He will need PFTs in the future. Discussed missed appts w Dr. Campos and sleep lab. He states he will not followup there as he doesn't want to do a lung biopsy. His resp symptoms are improved overall. He expresses understanding on the severity of his condition and he chooses not to followup. [facility] Other 07-13-2023 Evaluation note* Encounter Date Diagnosis Assessment Notes Treatment Notes Treatment Clinical Notes Jan, COPD, moderate (ICD-10 - J44.9) Reminded him to keep appt w Dr. Campos on 02/10. Continue home medications. Avoid going outside with there is haze. Jan, Other sleep disorders (ICD-10 - G47.8) Gave number for the [facility] Sleep lab. He missed his last appt as his daughter had COVID. He will call to reschedule. [facility] Other 07-07-2023 Evaluation note* Encounter Date Diagnosis Assessment Notes Treatment Notes Treatment Clinical Notes Jan, Situational anxiety (ICD-10 - F41.8) [facility] Other 05-11-2023 Evaluation note* Encounter Date Diagnosis Assessment Notes Treatment Notes Treatment Clinical Notes November, Situational anxiety (ICD-10 - F41.8) [facility] Other 05-05-2023 Evaluation note* Encounter Date Diagnosis [...] any surgical interventions. Tobacco cessation program at [facility] has been recommended and offered as well as the national Quitline 4-028-KCLT-NOW. We have discussed pharmacologic treatment including nicotine replacement therapy which can lead to a positive nicotine test as well as nicotine free medications both of which will need to be managed by their PCP. We have provided handout for the [facility] Tobacco Cessation Program. This discussion was limited to 5 minutes. [facility] Other 04-20-2023 Evaluation note* Encounter Date Diagnosis Assessment Notes Treatment Notes Treatment Clinical Notes Oct, Chronic obstructive pulmonary disease, unspecified COPD type (ICD-10 - J44.9) Will resume inhalers as prescribed. Keep appt w Dr. Campos. Notes frequent dyspnea, agrees to a prednisone course. Oct, INOCENTE (obstructive sleep apnea) (ICD-10 - G47.33) I called [facility]. He has to meet with the sleep specialist before the test is done, even though it was already ordered. I gave him the date of the appt. I also ordered the test. Oct, Coronary artery disease involving ak[place] heart without angina pectoris, unspecified vessel or lesion type (ICD-10 - I25.10) Continued followup w [facility]. Continue time off work until breathing status is improved. [facility] ! Other 03-28-2023 Evaluation note* Encounter Date Diagnosis Assessment Notes Treatment Notes Treatment Clinical Notes Sep, Chronic obstructive pulmonary disease, unspecified COPD type (ICD-10 - J44.9) Trelegy samples and training please Sep, Atelectasis of right lung (ICD-10 - J98.11) Please obtain any previous chest CT done at [place] in the past, and have them load onto our PACS Sep, Tobacco use disorder (ICD-10 - F17.200) Sep, Coronary artery disease involving akut[place] heart without angina pectoris, unspecified vessel or lesion type (ICD-10 - I25.10) [facility] Other 03-23-2023 Evaluation note* Encounter Date Diagnosis Assessment Notes Treatment Notes Treatment Clinical Notes Sep, Coronary artery disease involving ak[place] coronary artery of ak[place] heart without angina pectoris (ICD-10 - I25.10) [...] needs a titration study at the least. [facility] ! Other 03-21-2023 Hospital Discharge instructions Additional Instructions [...] doctor or pharmacist, without first calling the special education inclusion teacher who implanted the stent. If you require [...] weight lifting, stair steppers, etc. until the special education inclusion teacher approves these activities. Check with the special education inclusion teacher on your first follow-up visit. CALL YOUR PHYSICIAN at [phone]: -If bleeding should occur from the catheter insertion site- apply pressure to the site then immediately call us. -Report any fever, redness, drainage, increased swelling, or firmness at the catheter insertion site. Some bruising or slight swelling may be present at the time of discharge. -Should arm or leg become cold, numb, white, or blue, contact the special education inclusion teacher immediately. -IF you should experience episodes of [...] is recommended. Please call Central Scheduling at [phone] to schedule your appointment.] The attending special education inclusion teacher or [facility] nurse clinician should provide you with specific instructions regarding activity, diet, medications, and further follow up for you. Follow the medication instructions provided on your discharge. If the dosages and instructions on this sheet differ from the dosage and instructions on the bottle, follow the instructions on the bottle. [facility] is not responsible for incorrect prescription information provided by the patient during their visit. Do not stop your medications without consulting your health care provider. Please take the list with you to your next doctor's appointment.[facility] Work Phone: 1(975) 607-800003-21-2023 Progress note Author Rubén Tatum [facility] October 13, 2022 9:02am Note Date/Time October 13, 2022 9:0 2am [facility] [address] [place] [address] Cardiology Progress Note Signed Patient: Hector Gaspar SR MR#: [id number] : 1960 Acct:[id number] Age/Sex: 62 / M Adm Date: 3 Loc: 4 Room: [address] [place] [address] Type: ADM IN Attending Dr: Barbara Rivero [...] on postNSTEMI/PCI metoprolol tartrate. 5. Follow-up in [facility] heart clinic within 10 days. From [...] signed by Rubén Tatum MD> 10/13/22 0902 [facility] Work Phone: 1(185) 350-900403-20-2023 Progress note Author Barbara Rivero [facility] October 12, 2022 2:24pm Note Date/Time October 12, 2022 2:1 2pm [facility] [address] [place] [address] Hospitalist Progress Note Signed Patient: Hector Gaspar SR MR#: [id number] : 1960 Acct:[id number] Age/Sex: 62 / M Adm Date: 3 Loc: 4 Room: [address] [place] [address] Type: ADM IN Attending Dr: Barbara Rivero [...] Dose Route Start Last Admin Trade Name Freyariel PRN Reason Stop Dose Admin Acetaminophen 650 [...] this time. (3) Ventricular tachycardia seen on imaging nurse: Plan: No further episodes of ventricular tachycardia. [...] placement. Documented By: Barbara Rivero MD 10/12/22 7058 Signed By: <Electronically signed by Barbara Rivero MD> 10/12/22 9931 [facility] Work Phone: 1(675) 664-672803-20-2023 Progress note Author Rubén Tatum [facility] October 12, 2022 10:00am Note Date/Time October 12, 2022 9:5 9am [facility] [address] [place] [address] Cardiology Progress Note Signed Patient: Hector Gaspar SR MR#: [id number] : 1960 Acct:[id number] Age/Sex: 62 / M Adm Date: 3 Loc: Room: [address] [place] [address] Type: ADM IN Attending Dr: Barbara Rivero [...] pacing device. (3) Ventricular tachycardia seen on imaging nurse: Assessment/Problem Details: Stable no further wide-complex tachycardia [...] signed by Rubén Tatum MD> 10/12/22 1000 [facility] Work Phone: 1(192) 281-224803-19-2023 Progress note Author Barbara Rivero [facility] October 11, 2022 11:24am Note Date/Time October 11, 2022 11: 15am [facility] [address] [place] [address] Hospitalist Progress Note Signed Patient: Hector Gaspar SR MR#: [id number] : 1960 Acct:[id number] Age/Sex: 62 / M Adm Date: 3 Loc: 4P Room: 2P5033-4 Type: ADM IN Attending Dr: Barbara Rivero [...] smoking cessation. (3) Ventricular tachycardia seen on imaging nurse: Plan: Patient given potassium and magnesium supplement. [...] signed by Barbara Rivero MD> 10/11/22 1129 [facility] Work Phone: 1(725) 646-344303-19-2023 Progress note Author Rubén Tatum [facility] October 11, 2022 9:41am Note Date/Time October 11, 2022 9:3 3am [facility] [address] [place] [address] Cardiology Progress Note Signed Patient: Hector Gaspar SR MR#: [id number] : 1960 Acct:[id number] Age/Sex: 62 / M Adm Date: 3 Loc: Room: [address] [place] [address] Type: ADM IN Attending Dr: Barbara Rivero [...] % (Auto) 63.8 Lymph % (Auto) 21.8 [place] % (Auto) 10.2 Eos % (Auto) 3.7 Baso % (Auto) 0.5 Nucleat RBC Rel Count 0.1 Neut # (Auto) 4.2 Lymph # (Auto) 1.4 [place] # (Auto) 0.7 Eos # (Auto) 0.2 [...] MPV Neut % (Auto) Lymph % (Auto) [place] % (Auto) Eos % (Auto) Baso % (Auto) Nucleat RBC Rel Count Neut # (Auto) Lymph # (Auto) [place] # (Auto) Eos # (Auto) Baso # [...] AV node (3) Ventricular tachycardia seen on imaging nurse: Assessment/Problem Details: Not entirely certain that this [...] By: <Electronically signed by Rubén Tatum MD> 10/11/2224 [facility] Work Phone: 1(652) 740-932603-18-2023 Progress note Author Barbara Rivero [facility] October 10, 2022 1:33pm Note Date/Time October 10, 2022 1:3 3pm [facility] [address] [place] [address] Event Note Signed Patient: Hector Gaspar SR MR#: [id number] : 1960 Acct:[id number] Age/Sex: 62 / M Adm Date: 3 Loc: Room: [address] [place] [address] Type: ADM IN Attending Dr: Barbara Rivero [...] <Electronically signed by Barbara Rivero MD> 10/10/22 1333 [facility] Work Phone: 1(533) 993-236303-18-2023 History of Present illness Narrative* Patient presents to the office ambulatory with steady gait. * This is initial in clinic follow-up at [facility]. * October 10, 2022 transferred to [facility] from [facility] d/t NSTEMI. Managed by with uneventful [...] medication regimen. He denies medication side effects. [facility] DO Work Phone: 1(604) 748-514303-18-[address] [facility]03-18-[address] [facility]03-18-2023 Consult note Author Rubén Tatum [facility] October 10, 2022 9:54am Note Date/Time October 10, 2022 9:5 1am [facility] [address] [place] [address] Cardiology Consult Note Signed Patient: Hector Gaspar MR#: [id number] : 1960 Acct:[id number] Age/Sex: 62 / M Adm Date: 3 Loc: Room: [address] [place] [address] Type: ADM IN Attending Dr: Barbara Rivero MD Copies to: MD Barbara Barry MD Stephen M Tann, MD~ Cardiology HPI History of Present Illness Consult Date: 10/10/22 Reason for Consult: Nausea, non-STEMI HPI: Mr. Gaspar is a 62 year old male with multiple cardiac risk factors but no known prior coronary heart disease who presented to [place] emergency department lastnight complaining of nausea x2 [...] consistent nausea ever since. He presented to [place] emergency department last evening with these complaints. In the ER at [place] ECG showed Q waves in the inferolateral [...] trend upward to 6000 and then greater [id number]. Echocardiogram at bedside this morning shows normal [...] negative unless noted below or in [facility]PI [facility]-19?: No Medical History Asthma [...] Lymph # (Auto) 1.4 1.4 (1.00-4.8) x10E3/uL [place] # (Auto) 0.6 0.6 (0.0-0.8) x10E3/uL Eos [...] Dysrhythmias Sinus rhythms and dysrhythmias: sinus rhythm OK, pacemaker, normal Myocardial infarction: inferior OK (old age indeterminate) and lateral OK (acuteor recent) A&P - Cardiology (1) NSTEMI [...] signed by Rubén Tatum MD> 10/10/22 0954 [facility] Work Phone: 1(128) 219-283003-18-2023 History and physical note Author Galo Dent [facility] October 10, 2022 7:28am Note Date/Time October 10, 2022 7:2 8am [facility] [address] [place] [address] Hospitalist H&P Signed Patient: Hector Gaspar SR MR#: [id number] : 1960 Acct:[id number] Age/Sex: 62 / M Adm Date: 3 Loc: 3T Room: [address] [place] [address] Type: ADM IN Attending Dr: Barbara Rivero MD Copies to: MD Barbara Barry MD Mushtaq Mahmood, MD~ HPI DATE OF EXAMINATION: 10/10/22 CHIEF COMPLAINT: Non-ST elevation OK HISTORY OF PRESENT ILLNESS: Patient is a 62-year-old gentleman with history of hypertension, heavy smoking about 1-1/2 pack for 45 years, COPD, strong family history of coronary artery disease, came to us from [place] emergency department last night. Patient presented to [...] The ER physician did talk to the special education inclusion teacher here in [facility]. Patient was started on heparin drip, nitro patch was applied. He was sent to our hospital. Upon arrival in the [facility] patient complained about headache. Nitropatch was [...] % (Auto) 27.5 % (.) 10/10/22 06:10 [place] % (Auto) 11.4 % (.) 10/10/22 06:10 Eos % (Auto) 4.4 % (.) 10/10/22 06:10 Baso % (Auto) 0.6 % (.) 10/10/22 06:10 Nucleat RBC Rel Count 0.1 /100 WBC (0-0.5) 10/10/22 06:10 Neut # (Auto) 2.9 x10E3/uL (1.8-7.7) 10/10/22 06:10 Lymph # (Auto) 1.4 x10E3/uL (1.00-4.8) 10/10/22 06:10 [place] # (Auto) 0.6 x10E3/uL (0.0-0.8) 10/10/22 06:10 [...] heartcath by cardiology today. I have consulted [facility] heart. He was offered nicotine patch. [...] signed by Galo Dent MD> 10/10/22 0728 [facility] Work Phone: 1(446) 530-694002-15-2023 Evaluation note* Encounter Date Diagnosis Assessment Notes [...] in office today. Prior medical notes from [place] ED and history have been reviewed. At [...] any surgical interventions. Tobacco cessation program at [facility] has been recommended and offered as well as the national Quitline 9-119-JHAC-NOW. We have discussed pharmacologic treatment including nicotine replacement therapy which can lead to a positive nicotine test as well as nicotine free medications both of which will need to be managed by their PCP. We have provided handout for the [facility] Tobacco Cessation Program. This discussion was limited to 5 minutes. Aug, Other See orders for this visit as documented in the electronic medical record. [facility] Other 01-19-2023 Evaluation note* Encounter Date Diagnosis Assessment Notes Treatment Notes Treatment Clinical Notes Jul, Chronic obstructive pulmonary disease with acute exacerbation (ICD-10 - J44.1) Discussed diagnosis with patient. Medication profile and possible SE reviewed with patient. Take as directed. Keep appt w Dr. Castillo on 08/31. Notify office if not improving or worsening. Patient verbalizes understanding and agrees to treatment plan. [facility] ! Other 01-05-2023 Evaluation note* Encounter Date Diagnosis Assessment Notes Treatment Notes Treatment Clinical Notes Jul, Chronic obstructive pulmonary disease with acute exacerbation (ICD-10 - J44.1) [facility] Atticous Other Discharge summary Author Barbara Rivero [facility] October 13, 2022 2:14pm Note Date/Time October 13, 2022 2:0 9pm [facility] [address] [place] [address] Discharge Summary Signed Patient: Hector Gaspar SR MR#: [id number] : 1960 Acct:[id number] Age/Sex: 62 / M Adm Date: 3 Loc: Room: [address] [place] [address]: Barbara Rivero MD Copies to: [...] transferred from outside facility for non-ST elevated OK. He was started on heparin drip as [...] doctor or pharmacist, without first calling the special education inclusion teacher who implanted the stent. If you require [...] weight lifting, stair steppers, etc. until the special education inclusion teacher approves these activities. Check with the special education inclusion teacher on your first follow-up visit. CALL YOUR PHYSICIAN at [phone]: -If bleeding should occur from the catheter insertion site- apply pressure to the site then immediately call us. -Report any fever, redness, drainage, increased swelling, or firmness at the catheter insertion site. Some bruising or slight swelling may be present at thetime of discharge. -Should arm or leg become cold, numb, white, or blue, contact the special education inclusion teacher immediately. -IF you should experience episodes of [...] is recommended. Please call Central Scheduling at [phone] to schedule your appointment.] The attending special education inclusion teacher or [facility] nurse clinician should provide you with specific instructions regarding activity, diet, medications, and further follow up for you. Follow the medication instructions provided on your discharge. If the dosages and instructions on this sheet differ from the dosage and instructions on the bottle, follow the instructions on the bottle. [facility] is not responsible for incorrect prescription [...] BY MOUTH EVERY DAY Other Ambulatory Orders: FILTER TIP CATCHER polysom procedure (Routine) Timeframe: 1 Week Location: Determined by Patient Ordered By: Barbara Rivero Follow Up: [facility] Sleep Lab [Outside] (Left message with [facility] regarding need for outpatient sleep [...] signed by Barbara Rivero MD> 10/13/22 1414 [facility] Work Phone: Evaluation noteNo assessment information available [facility] Work Phone: Evaluation noteNo InformationNort [employer] Other Evaluation note* Diagnosis Onset Date Resolution Status COPD (chronic obstructive pulmonary disease) acute Heart block AV complete acut e Hypertension acute Hypoxemia acute NSTEMI (non-ST elevated myocardial infarction) acute Sleep apnea in adult acute Tobacco abuse acute Ventricular tachycardia seen on imaging nurse acute [facility] Work Phone: Evaluation note* Diagnosis Abdominal aortic aneurysm (AAA) without rupture, unspecified part (CMS-HCC)- Primary Obstructive chronic bronchitis with exacerbation (CMS-HCC) Obstructive chronic bronchitis with exacerbation Obesity with body mass index (BMI) of 30.0 to 39.9 Chronic obstructive pulmonary disease, unspecified COPD type (CMS-HCC) documented in this encounter [facility] SystemEvaluation note* Diagnosis Abdominal aortic aneurysm (AAA) without rupture, unspecified part (CMS-HCC)- Primary Obstructive chronic bronchitis with exacerbation (CMS-HCC) Obstructive chronic bronchitis with exacerbation Obesity with body mass index (BMI) of 30.0 to 39.9 documented in this encounter [facility] SystemEvaluation note* Diagnosis Abdominal aortic aneurysm (AAA) without rupture, unspecified part (CMS-HCC)- Primary Obstructive chronic bronchitis with exacerbation (CMS-HCC) Obstructive chronic bronchitis with exacerbation Obesity with body mass index (BMI) of 30.0 to 39.9 documented in this encounter [facility] SystemEvaluation note* Diagnosis Atherosclerosis of akut[place] coronary artery of [place]ut[place] heart without angina pectoris Essential hypertension, benign Mixed hyperlipidemia Ischemic cardiomyopathy Other specified forms of chronic ischemic heart disease Past myocardial infarction Old myocardial infarction Moderate chronic obstructive pulmonary disease (CMS/HCC) Chronic airway obstruction, not elsewhere classified Obesity (BMI 35.0-39.9 without comorbidity) Current smoker documented in this encounter [facility] Work Phone: Evaluation note* Diagnosis Onset Date Resolution Status COPD (chronic obstructive pulmonary disease) acute Situational anxiety acute [facility] Work Phone: Evaluation note* Diagnosis Onset Date Resolution Status COPD (chronic obstructive pulmonary disease) acute Situational anxiety acute Hypertension acute Coronary artery disease invo lving akutan heart without angina pectoris acute Hypertension acute Situational anxiety acute [facility] Work Phone: Evaluation note* Diagnosis Onset Date Resolution Status Hypertension acute Coronary artery disease invo lving akut[place] heart without angina pectoris acute Hypertension acute Situational anxiety acute Right knee pain acute Right leg pain acute [facility] Work Phone: Evaluation note* Diagnosis Onset Date Resolution Status Right knee pain acute Right leg pain acute [facility] Work Phone: History general Narrative - Reported* [...] appendectomy 05/02/18 Hospitalization History SEE SURGICAL HX Fresh ! Other Hiskrcp general Narrative - Reported* Type Description Date [...] 3 Stents 09/2022 Hospitalization History SEE SURGICAL Fresh ! Other Hismlgb general Narrative - Reported* Type Description Date [...] Stents 09/2022 Hospitalization History SEE SURGICAL HX Fresh ! Other Hisbvpb general Narrative - Reported* Type Description Date [...] History SEE SURGICAL HX Hospitalization History pneumonia Fresh ! Other InstructionsNot on filedocumented in this encounter [employer] [facility] SystemInstructionsNot on filedocumented in this encounter [facility] SystemInstructionsNot on filedocumented in this encounter [facility] SystemReason for referral (narrative)* Consultation (Routine) - Authorized Specialty Diagnoses / Procedures Referred By Yang boothe Referred To Contact Cardiology Diagnoses Atherosclerosis of akutan coronary artery of akut[place] heart without angina pectoris Procedures Follow Up In Cardiology Alok Webber DO [address] [place] [address] 2, [place] [address] Alok Webber DO [address] [place] [address] 2, [place] [address] Referral ID Status Reason Start Date Expiration Date V isits Requested Visits Authorized [id number] Authorized 09/14/2023 09/13/2024 1 1 [facility] Work Phone: Chief Complaint and Reason for Visit Chief Complaint M25.561 Elevated Troponin Reason for Visit COPD (chronic obstru ctive pulmonary disease) Heart block AV complete Hypertension Hypoxemia NSTEMI (non-ST elevated myocardial infarction) Sleep apnea in adult Tobacco abuse Ventricular tachycardia seen on imaging nurse Chief Complaint M25.561 Elevated Troponin I25.10 I10 E78.2 Reason for Visit COPD (chronic obstru ctive pulmonary disease) Heart block AV complete Hypertension Hypoxemia NSTEMI (non-ST elevated myocardial infarction) Sleep apnea in adult Tobacco abuse Ventricular tachycardia seen on imaging nurse Chief Complaint M25.561 Elevated Troponin I25.10 I10 E78.2 j98.11 Reason for Visit COPD (chronic obstru ctive pulmonary disease) Heart block AV complete Hypertension Hypoxemia NSTEMI (non-ST elevated myocardial infarction) Sleep apnea in adult Tobacco abuse Ventricular tachycardia seen on imaging nurse Chief Complaint Tbh Amb Documentation Breathing Issues Dizziness Reason for Visit COPD (chronic obstru ctive pulmonary disease) Situational anxiety Chief Complaint Amb Documentation Breathing Issues Dizziness 1 month follow up pain in right calf Reason for Visit COPD (chronic obstru ctive pulmonary disease) Situational anxiety Hypertension Coronary artery disease involving akutan heart without angina pectoris Hypertension Situational anxiety Chief Complaint Dizziness 1 month follow up pain in right calf right leg swollen and painful Reason for Visit Hypertension Coronary artery disease involving akutan heart without angina pectoris Hypertension Situational anxiety Right knee pain Right leg pain Chief Complaint pain in right calf right leg swollen and painful 3 month follow up Reason for Visit Right knee pain Right leg pain Family History No Family History Records Found [...] of diabetes m ellitus: Father(V18.0, Z83.3) Status:Active Relationship Condition Age at Onset Recorded Date/T mitch sister Myocardial infarction Unknown Not Specified Cerebrovascular accident (CVA) Unknown father Diabetes mellitus Unknown brother Sleep apnea Unknown Unknown Not Specified Malignant neoplasm Unknown Family history of lung cancer Unknown Relationship Condition Age at Onset Recorded Date/T mitch sister Myocardial infarction Unknown mother Cerebrovascular accident (CVA) Unknown father Diabetes mellitus Unknown brother Sleep apnea Unknown Unknown mother Malignant neoplasm Unknown Family history of lung cancer Unknown Advance Directives No Advanced Directives Records Found Advance Directive Response Recorded Date/ Time Advance Directives No August 2:30pm [facility] f/u: 'doing good'* HECTOR GASPAR is being seen for pre-operative clearance. * 62-year-old gentleman here for preoperative risk assessment and clearance at the request of Dr. Campos for endobronchial biopsy to be performed in mid December. 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 * He tells me that he has had right lower lobe mass since 2012 that has been followed reportedly at [facility] details of which are unknown * [...] aneurysm (AAA) without rupture, unspecified part ([facility]) Obstructive chronic bronchitis with exacerbation ([facility]) Obesity with body mass index (BMI) of 30.0 to 39.9 Chronic obstructive pulmonary disease, unspecified COPD type ([facility]) Procedures CT angiogram abdomen and pelvis Christopher Sewell MD [address], [address] [address] Referral ID Status Reason Start Date Expiration Date V isits Requested Visits Authorized [id number] Pending Review 08/22/2023 08/21/2024 1 1 Reason *FU 07/28 5cm AAA - report scanned. Diagnosis 1 Abdominal aortic ane urysm (AAA) without rupture, unspecified part (I71.40) Referral Organization [facility] Referring Provider First Name Brock Referring Provider Last Name Ly Referring Provider Specialty [facility] Referred Organization [facility] Referred Provider Christopher Sewell Referred Address [address], [place],[address] Referred Provider Specialty Vascular Mir michelle Referral Priority Routine General Notes Helen Mendez 09:16:43 AM >received today, attachments made, ntoes locked, referral faxed Clinical Notes p: [phone] f: [id number] Additional Source Comments Care Teams (unrecognized sec tion and content) Team Status: Active Member Role Status Dates Brock Modi MD Primary Care Provider Active Team Status: Inactive Member Role Status Dates Brock Modi MD Primary Care Provider Active Start: December 13, 2023 End: December 13, 2023 Brenda Jolley APRN [employer]-C Attending Provider Act carol Start: December 13, 2023 End: December 13, 2023 Team Status: Inactive Member Role Status Dates Brock Modi MD Primary Care Provide r, Attending Provider Active Start: January 05, 2024 End: January 05, 2024 Team Status: Inactive Member Role Status Dates Brock Modi MD Primary Care Provide r, Attending Provider Active Start: February 24, 2024 End: February 24, 2024 Team Status: Active Member Role Status Dates Brock Modi MD Primary Care Provider Active Start: October 04, 2023 ANCELMO Bay Attending Provider Active Start : October 04, 2023 Team Status: Inactive Member Role Status Dates Brock Modi MD Primary Care Provide r, Attending Provider Active Start: October 04, 2023 End: October 04, 2023 Team Status: Active Member Role Status Dates Brock Modi MD Primary Care Provide r, Attending Provider Active Start: October 09, 2023 Team Status: Inactive Member Role Status Dates Brock Modi MD Primary Care Provide r, Attending Provider Active Start: October 26, 2023 End: October 26, 2023 Team Status: Inactive Member Role Status Dates Brock Modi MD Primary Care Provide r, Attending Provider Active Start: November 25, 2023 End: November 25, 2023 Team Status: Inactive Member Role Status Dates Wagner Marrufo DO Attending Provider Active Team Status: Inactive Member [...] Active Adi Campos MD Attending Provider Active Lead Section Supervisor Relationship Specialty Start Date End Date Brock Modi MD [address] [place] [id number] PCP - General Family Medicine 09/03/21 Lead Section Supervisor Relationship Specialty Start Date End Date Brock Modi MD [address] [place] [address] PCP - General Family Medicine 09/03/21 Lead Section Supervisor Relationship Specialty Start Date End Date Brock Modi MD [address] [place] [id number] PCP - General Family Medicine 09/03/21 Lead Section Supervisor Relationship Specialty Start Date End Date Brock Modi MD PCP - General 10/10/22 Team Status: Inactive Member Role Status Dates Brock Modi MD Attending Provider Active St art: August 06, 2023 End: August 06, 2023 Goals (unrecognized section and content) Goals may be documented in a n alternate sectionNo InformationNo InformationNo InformationNo InformationNo InformationNo InformationNo InformationNo InformationNo InformationNo InformationNo InformationNo InformationNo InformationNo InformationNo InformationNo InformationNo InformationNo InformationNo InformationNo InformationNo InformationNo InformationNo InformationNot on filedocumented as of this encounterNot on filedocumented as of this encounterNot on filedocumented as of this encounterNo InformationGoals may be documented in an alternate sectionGoals may be documented in an alternate sectionGoals may be documented in an alternate sectionGoals may be documented in an alternate section REASON FOR VISIT (unrecogniz ed section and content) Reason Comments Follow-up 6m Reason Comments Follow-up Yearly follow up. Te sting was in 08/2022. Specialty Diagnoses / Procedures Referred By Contac t Referred To Contact Vascular Surgery Diagnoses Abdominal aortic aneurysm (AAA) without rupture, unspecified part ([facility]) Christopher Sewell MD [address], [address] [address] Phone: Christopher Sewell MD [address] [place] [address] Phone: Referral ID Status Reason Start Date Expiration Date Visits Requested Visits Authorized [id number] Pending Review Specialty Services Required 3 07/21/2024 1 1 US resultTBHsleep apnea discussionrefillAlprazolamRecheck Right Knee* Reason for Visit: * Holter Monitor: * HECTOR is here for the application of a 48 hour Holter monitor. * Ordering Physician: JANINE CUNHA * Diagnosis: CAD SINUS PAUSE * [facility] equipment agreement signed. HECTOR understands monitor is to be returned on: 11-03-22 * Monitor number [id number] applied. * Holter monitor returned and downloaded. messagePulmonary Office NotesRef by Dr. Brock Modi for COPD[facility] - HAD HEART ATTACKRight Knee PainCheck Upnot feeling back to normal- discussion (unrecognized sect ion and content) No Status Records FoundNo Status Records FoundNo Status Records FoundNo Status Records FoundNo Status Records FoundNo Status Records FoundNo Status Records Found INFORMATION SOURCE (unrecogn ized section and content) DATE CREATED AUTHOR 11/07/2022 [facility] DATE CREATED AUTHOR AUTHOR'S ORGANIZ ATION 11/12/2022 [facility] DATE CREATED AUTHOR AUTHOR'S ORGANIZ ATION 01/02/2023 [employer] DATE CREATED AUTHOR AUTHOR'S ORGANIZ ATION 04/09/2023 [facility] DATE CREATED AUTHOR AUTHOR'S ORGANIZ ATION 08/08/2023 [facility] DATE CREATED AUTHOR AUTHOR'S ORGANIZ ATION 11/12/2023 [facility] DATE CREATED AUTHOR AUTHOR'S ORGANIZ ATION 03/09/2024 [facility] FOR RECORDS PERTAINING TO PATIENTS WHO [...] BE BASED ON THE PRIMARY CLINICAL RECORDS. [facility]. provides no warranty or guarantee of the accuracy or completeness of information in this document.
--- NOTE | 2024-05-07 20:00 | XR_ITS ---
[address] [address] Patient Name: HECTOR HIGHTOWER MRN: [id number] date: 1960 Sex: M Assigned Patient Location: ER Current Patient Location: Accession/Order Number: [id number] Exam Date: 05/07/2024 20:10 Report Date: 05/07/2024 22:15 At the request of: CHRISTOPHE MCGARRY Procedure: XR chest 2V CHEST X-RAY. INDICATION: Shortness of breath COMPARISON: 09/01/2023 TECHNIQUE: Frontal and lateral chest radiographs. FINDINGS: TUBES AND LINES: None. LUNGS: Hyperexpanded lungs. Mild chronic opacities in the lower lungs. No new focal opacity. PLEURA: No effusions or pneumothorax. HEART AND MEDIASTINUM: Within normal limits. OSSEOUS STRUCTURES: No acute abnormality. XR/XR chest 2V IMPRESSION: No acute findings. Electronically authenticated by: MATTEO MONAE Date: 05/07/2024 22:15
--- NOTE | 2024-05-07 20:00 | ECG_ITS ---
[facility] Test Date: 2024-05-07 Pat Name: HECTOR HIGHTOWER Department: Room: - Gender: Male Simulation Specialist: : 1960 Requested By: BROCK MODI Order Number: [id number] Reading MD: ALTAGRACIA MOJICA Measurements Intervals Wheeler Rate: 89 P: 33 SD: 174 QRS: 57 QRSD: 94 T: 70 QT: 352 QTc: 398 Interpretive Statements 1100 Sinus rhythm 1470 with occasional supraventricular premature complexes 3514 Cannot rule out inferolateral myocardial infarction, age undetermined 3624 Possible inferior myocardial infarction, age undetermined 9150 abnormal ECG Electronically Signed On 05-08-2024 7:03:18 EDT by ALTAGRACIA MOJICA
[2024-05-07 20:07] LABS: Basophils Percent Auto 0.6 % (0.2-2.0); Eosinophils Absolute Auto 0.2 10^3/uL (0.0-0.7); Eosinophils Percent Auto 3.8 % (0.9-7.0); Hematocrit 39.8 % (42.0-54.0); Hemoglobin 13.8 g/dL (14.0-18.0); Immature Granulocytes Abs Auto 0.01 10^3/uL (0.00-0.03); Immature Granulocytes Pct Auto 0.2 % (0.0-0.5); Lymphocytes Absolute Auto 1.6 10^3/uL (1.2-3.8); Lymphocytes Percent Auto 34.4 % (20.5-60.0); Mean Corpuscular HGB Conc 34.7 g/dL (29.9-35.2); Mean Corpuscular Hemoglobin 30.9 pg (25.9-34.0); Mean Corpuscular Volume 89.2 fL (80.0-94.0); Mean Platelet Volume 9.4 fL (9.5-13.5); Monocytes Absolute Auto 0.6 10^3/uL (0.3-0.8); Monocytes Percent Auto 12.4 % (1.7-12.0); Neutrophils Absolute Auto 2.3 10^3/uL (1.4-6.5); Neutrophils Percent Auto 48.6 % (43.0-75.0); Platelet Count 212 10^3/uL (150-450); Red Blood Count 4.46 10^6/uL (4.70-6.10); Red Cell Distribution Width 12.4 % (11.0-15.0); White Blood Count 4.7 10^3/uL (4.0-11.0)
--- NOTE | 2024-05-07 20:17 | ED.GENADUL1 ---
HPI HPI - General Adult General Chief complaint: Shortness of Breath/Dyspnea Stated complaint: Shortness of Breath Nausea Time Seen by Provider: 05/07/24 19:46 Source: patient Mode of arrival: walk-in Limitations: no limitations History of Present Illness HPI narrative: 63-year-old male presents here with chief complaint of a 2-day history of nausea and upset stomach. He states he took Pepto [place] at home without any relief. Patient states he then has become short of breath. He is able to speak full sentences. He is a smoker continues to smoke. Past medical history includes an MO last year, AAA, and hypertension. Patient also has a history of COPD. He did not take any of his breathing treatments he states he does not usually take them. Related Data Home Medications ?Medication ?Instructions ?Recorded ?Confirmed aspirin 81 mg chewable tablet 1 tab PO DAILY 01/24/23 05/07/24 atorvastatin 80 mg tablet 80 mg PO QPM 01/24/23 05/07/24 valsartan 160 mg tablet 160 mg PO DAILY 09/01/23 05/07/24 clopidogrel 75 mg tablet (Plavix) 75 mg PO DAILY 10/09/23 05/07/24 Previous Rx's ?Medication ?Instructions ?Recorded albuterol sulfate 2.5 mg/3 mL 2.5 mg (3 mL) inhalation Q6H PRN 05/07/24 (0.083 %) solution for nebulization shortness of breath or wheezing #75 mL albuterol sulfate 90 mcg/actuation 2 inh inhalation Q6H PRN shortness 05/07/24 aerosol inhaler of breath or wheezing #6.7 grams ondansetron 4 mg disintegrating 4 mg PO TID PRN nausea and 05/07/24 tablet vomiting 3 days #10 tabs Allergies Allergy/AdvReac Type Severity Reaction Status Date / Time Penicillins Allergy Severe Hives Verified 05/07/24 19:50 pneumonia shot AdvReac Intermediate Unknown Uncoded 05/07/24 19:50 Opioid HPI Opioid Management Most Recent Opioid Data: No Data to Display Review of Systems ROS Narrative All Systems are negative except as noted/marked.All systems reviewed and otherwise negative [facility] Medical History (Updated 05/07/24 @ 20:57 by Oralia Hanson) Hypercholesterolemia ?E78.00 - Pure hypercholesterolemia, unspecified (ICD-10) COPD (chronic obstructive pulmonary disease) ?J44.9 - Chronic obstructive pulmonary disease, unspecified (ICD-10) Social History Smoking status: Current every day smoker Little interest or pleasure in doing things: not at all Feeling down, depressed, or hopeless: not at all Exam Narrative Exam Narrative: Nurses note and vital signs reviewed and patient is not hypoxic. General: The patient appears well and in no apparent distress. Patient is resting comfortably on cart. Skin: Warm, dry, no pallor noted. There is no rash noted. Head: Normocephalic, atraumatic Eye: Normal conjunctiva, no drainage, EOMI. PERRL Ears, Nose, Mouth, and Throat: oral mucosa is moist. Nares patent. Mouth without vesicles. Ear canals patent. Tm's without Erythema Cardiovascular: Regular Rate and Rhythm Respiratory: Patient is in no distress, no accessory muscle use, lungs are clear to auscultation, no wheezing, rales or rhonchi Back: non-tender, no CVA tenderness bilaterally to percussion. GI: Normal bowel sounds, no tenderness to palpation, no masses appreciated. No rebound, guarding, or rigidity noted. Musculoskeletal: The patient has no evidence of calf tenderness, no pitting edema, symmetrical pulses noted bilaterally Neurological: A&O x4, normal speech Psychiatric: Cooperative Constitutional Vital Signs, click to edit/add: Last Vital Signs Temp 98.5 F 05/07/24 19:50 Pulse 80 05/07/24 20:50 Resp 18 05/07/24 20:50 BP 142/93 H 05/07/24 20:31 Pulse Ox 93 L 05/07/24 20:50 O2 Del Method Room Air 05/07/24 20:23 Course Vital Signs Vital signs: Vital Signs Temperature 98.5 F 05/07/24 19:50 Pulse Rate 90 05/07/24 19:50 Respiratory Rate 16 05/07/24 19:50 Blood Pressure 169/102 H 05/07/24 19:50 Pulse Oximetry 96 05/07/24 19:50 Oxygen Delivery Method Room Air 05/07/24 19:50 Temperature 98.5 F 05/07/24 19:50 Pulse Rate 80 05/07/24 20:50 Respiratory Rate 18 05/07/24 20:50 Blood Pressure 142/93 H 10/13/24 20:31 Pulse Oximetry 93 L 05/07/24 20:50 Oxygen Delivery Method Room Air 05/07/24 20:23 Medical Decision Making MDM Narrative Medical decision making narrative: 63-year-old male presenting here with a 2-day history of nausea and shortness of breath. Patient states shortness of progressed earlier today. He does have a history of COPD. He states he does feel like this when he runs out of his medications. He states he is currently out of his albuterol nebulizer medications. Upon arrival to the emergency room IV was established CBC CMP chest x-ray and troponins were all reviewed. No acute abnormalities noted. Patient's troponin is negative. Patient was medicated here with Zofran and DuoNeb breathing treatment and symptoms improved. Patient be discharged home diagnosis COPD exacerbation with nausea. Encouraged to follow-up primary care physician. Differential Diagnosis Differential Diagnosis: shortness of Breath, pneumonia,nausea Medical Records Medical records reviewed: Yes I reviewed the patient's medical records Lab Data Lab results reviewed: Yes I reviewed the patient's lab results Labs: Lab Results 05/07/24 Range/Units 20:00 WBC 4.7 (4.0-11.0) 10^3/uL RBC 4.46 L (4.70-6.10) 10^6/uL Hgb 13.8 L (14.0-18.0) g/dL Hct 39.8 L (42.0-54.0) % MCV 89.2 (80.0-94.0) fL MCH 30.9 (25.9-34.0) pg MCHC 34.7 (29.9-35.2) g/dL RDW 12.4 (11.0-15.0) % Plt Count 212 (150-450) 10^3/uL MPV 9.4 L (9.5-13.5) fL Neut % (Auto) 48.6 (43.0-75.0) % Lymph % (Auto) 34.4 (20.5-60.0) % [place] % (Auto) 12.4 H (1.7-12.0) % Eos % (Auto) 3.8 (0.9-7.0) % Baso % (Auto) 0.6 (0.2-2.0) % Neut # (Auto) 2.3 (1.4-6.5) 10^3/uL Lymph # (Auto) 1.6 (1.2-3.8) 10^3/uL [place] # (Auto) 0.6 (0.3-0.8) 10^3/uL Eos # (Auto) 0.2 (0.0-0.7) 10^3/uL Baso # (Auto) 0.0 (0.0-0.1) 10^3/uL Abs Immat Gran (auto) 0.01 (0.00-0.03) 10^3/uL Imm/Tot Granulo (auto) 0.2 (0.0-0.5) % PT 10.2 (9.0-11.6) sec INR 0.96 Sodium 141 (136-145) mmol/L Potassium 4.1 (3.5-5.1) mmol/L Chloride 104 (98-107) mmol/L Carbon Dioxide 27.0 (21.0-32.0) mmol/L Anion Gap 14.1 BUN 18.0 (7.0-18.0) mg/dL Creatinine 1.38 H (0.70-1.30) mg/dL Est GFR ( Amer) >60 (>=60 mL/min/1.73m^2) Est GFR (Non-Af Amer) 52 L (>=60 mL/min/1.73m^2) BUN/Creatinine Ratio 13.0 Glucose 111 H (74-106) mg/dL Calcium 9.3 (8.5-10.1) mg/dL Total Bilirubin 0.4 (0.2-1.0) mg/dL AST 19 (15-37) U/L ALT 26 (16-63) U/L Alkaline Phosphatase 67 (46-116) U/L Troponin I High Sens 15.2 (4.0-76.1) pg/mL NT-Pro-B Natriuret Pep 87.0 (<=900.0) pg/mL Total Protein 7.4 (6.4-8.2) g/dL Albumin 3.7 (3.4-5.0) g/dL Globulin 3.7 g/dL Albumin/Globulin Ratio 1.0 ECG Data Interpretation: 1953 normal sinus rhythm with a rate of [address] interval 174 ms QRS duration 94 ms, no STEMI, occasional PVC Discharge Plan Discharge Chief Complaint: Shortness of Breath/Dyspnea Clinical Impression: COPD with acute exacerbation Patient Disposition: Home, Self-Care Time of Disposition Decision: 20:57 Condition: Good Prescriptions / Home Meds: New albuterol sulfate 2.5 mg /3 mL (0.083 %) solution for nebulization 2.5 mg inhalation Q6H PRN (Reason: shortness of breath or wheezing) Qty: 75 0RF albuterol sulfate 90 mcg/actuation HFA aerosol inhaler 2 inh inhalation Q6H PRN (Reason: shortness of breath or wheezing) Qty: 6.7 0RF ondansetron 4 mg tablet,disintegrating 4 mg PO TID PRN (Reason: nausea and vomiting) 3 Days Qty: 10 0RF No Action aspirin 81 mg tablet,chewable 1 tab PO DAILY atorvastatin 80 mg tablet 80 mg PO QPM valsartan 160 mg tablet 160 mg PO DAILY Rx Instructions: HS clopidogrel [Plavix] 75 mg tablet 75 mg PO DAILY Print Language: Italian Instructions: COPD (Chronic Obstructive Pulmonary Disease) (ED) Referrals: Cielo Devries MD [Primary Care Provider] - 1 week
[2024-05-07] MEDS: ONDANSETRON PF 4 MG/2 ML VIAL IV (20:21)
[2024-05-07] MEDS: IPRATROPIUM/ALBUTEROL SULFATE 3 ML AMPUL.NEB IH (20:23)
[2024-05-07 20:30] LABS: Alanine Aminotransferase 26 U/L (16-63); Albumin Level 3.7 g/dL (3.4-5.0); Alkaline Phosphatase 67 U/L (46-116); Anion Gap 14.1; Aspartate Amino Transferase 19 U/L (15-37); Bilirubin Total 0.4 mg/dL (0.2-1.0); Calcium 9.3 mg/dL (8.5-10.1); Chloride 104 mmol/L (98-107); Estimated GFR (African America >60 (>=60 mL/min/1.73m^2); Estimated GFR (Non-African Ame 52 (>=60 mL/min/1.73m^2); Globulin 3.7 g/dL; Glucose 111 mg/dL (74-106); Potassium 4.1 mmol/L (3.5-5.1); Sodium 141 mmol/L (136-145); Total Protein 7.4 g/dL (6.4-8.2); Troponin I High Sensitivity 15.2 pg/mL (4.0-76.1)
[2024-05-07 20:48] LABS: INR 0.96; Prothrombin Time 10.2 sec (9.0-11.6)
== END 2024-05-07 21:14 | disposition home or self-care (01) ==
PROVIDERS: Physician Assistant; Emergency Provider Emergency Medicine; PCP Family Medicine
DX: J44.1 Chronic obstructive pulmonary disease with (acute) exacerbation (principal); F17.200 Nicotine dependence, unspecified, uncomplicated; I25.2 Old myocardial infarction; I71.40 Abdominal aortic aneurysm, without rupture, unspecified; I10 Essential (primary) hypertension
CPT/HCPCS: 36415; 71046; 80053; 83880; 84484; 85025; 85610; 93005; 94640; 96374; 99285; J2405

== ENCOUNTER 2024-07-20 09:28 | Outpatient (OUT) | payer OTHER, SELFPAY ==
--- OUTSIDE RECORDS SUMMARY | 2024-07-20 09:42 | XMS_ITS | CCD ---
Author Organization [facility] Care Team Providers Care Enamel Sprayer Name Role Phone DO Wagner Marrufo Attending Provider Brock Modi Unavailable Wagner Marrufo Unavailable DO Wagner Marrufo Attending Provider MD Brock Modi Primary Care Provider MD Galo Dent Admit Provider [phone] MD Barbara Rivero Attending Provider [phone] Brock Modi Unavailable Unavailable Unavailable Adi Campos Unavailable ZELALEM Faustin Attending Provider [phone] MD Adi Campos Attending Provider KULDEEP, DR CAR Torres Attending Unavailable KULDEEP, DR CAR Torres Admitting Unavailable MONTEJO ., DR JUSTIN Urbano Consulting Unavailable LY, [...] JANINE SCOTT Admitting Unavailable MALIKA, DR RUBÉN Titus Consulting Unavailabl e MALIKA, DR RUBÉN Titus Attending Unavailabl e MALIKA, DR RUÉBN Titus Admitting Unavailabl e LY, DR BROCK Urbano Primary Care Unavailable ALPHONSE, DR ARLIN Simpson Consulting Unavailable ALPHONSE, DR ARLIN Simpson Attending Unavailable ALPHONSE, DR ARLIN Simpson Admitting Unavailable MODI, DR BROCK Urbano Primary Care Unavailable AHDOLUIS, CYNTHIA Consulting Unavailable ALPHONSE, DR ARLIN Simpson Consulting Unavailable CUNHA, DR ARLIN Simpson Attending Unavailable ALPHONSE, DR ARLIN Simpson Admitting Unavailable LY, DR BROCK Urbano Primary Care Unavailable DAREK MARX Consulting Unavailable EBEN, COLIN Consulting Unavailable EBEN, COLIN Attending Unavailable EBEN, COLIN Admitting Unavailable MODI, DR BROCK Urbano Primary Care Unavailable AHDOOT, CYNTHIA Consulting Unavailable EBEN, COLIN Consulting Unavailable EBEN, COLIN Attending Unavailable EBEN, COLIN Admitting Unavailable MODI, DR BROCK Urbano Primary Care Unavailable SCHNEIDER GIBarney Consulting Unavailable HAY ., DR LUIS Consulting Unavailable HAY ., DR LUIS Attending Unavailable HAY ., DR LUIS Admitting Unavailable MODI, DR BROCK Urbano Primary Care Unavailable Viral Yang Unavailable Akbar, Dr. Alok Gonzalez Attending Unava ilable Ly, Dr. Brock Case Primary Care Unav ailable Janine Cunha Attending Unavailable Janine Cunha Referring Unavailable Ly, Dr. Brock Case Primary Care Unav ailable Ly, Dr. Brock Case Primary Care Unav ailable Janine Cunha Attending Unavailable Alphonse, Janine Referring Unavailable Modi, Dr. Brock Case Primary Care Unav ailable Akbar, Dr. Alok Gonzalez Attending Unava ilable Akbar, Dr. Alok Gonzalez Referring Unava ilable Modi, Dr. Brock Case Primary Care Unav ailable CHRISTOPHER SEWELL Attending Unavailable CHRISTOPHER SEWELL Referring Unavailable RBOCK MODI Primary Care Unavailable Brock Modi MD Primary Care Provider Brock Modi MD Primary Care Provider ALOK ARMIJO Attending Unavailable BROCK MODI Primary Care Unavailable CHRISTOPHER SEWELL T Referring Unavailable BROCK MODI Primary Care Unavailable CHRISTOPHER SEWELL T Referring Unavailable BROCK MODI Primary Care Unavailable Brock Modi Primary Care Unavailable Adi Campos Attending Unavailable Adi Campos Admitting Unavailable Allergies Allergy Classification Reported Allergen(s) Allergy Type Date of Onset Reaction(s) Facility (20 sources) Ciprofloxacin Drug Allergy 10-26-19 Nausea & Blurred vision, Comment:nausea and blurred vision [facility] (20 sources) Substance with penicillin structure and antibacterial mechanism of action (substance) Drug allergy Edema, Unknown [facility] Other (20 sources) Pneumococcal 7-Zulma Conj Vacc Drug allergy undefined, Comment:pneumo nococcal 23 [facility] Other (20 sources) Penicillins; Translations: [Penicillins] Propensity to adverse reactions 05-29-20 13 Swelling, [facility] (16 sources) Pneumococcal vaccine; Translations: [PNEUMOCOCCAL VACCINE] Drug Allergy 08-08-19 22 Nausea And Vomiting, Other [facility] (8 sources) Pneumococcal vaccine; Translations: [Pneumococcal Vaccines] Drug Allergy [facility] 250 DO Work Phone: (2 sources) Penicillin Drug Allergy 07-29-19 16 Unknown [facility] Other (2 sources) patient allergy list reviewed by nurse or physicia Propensity to adverse reactions 07-29-19 16 Comment:Done [facility] Other (2 sources) Allergies Reconciled Propensity to adverse reactions Unknown [facility] Other (5 sources) Ciprofloxacin; Translations: [CIPROFLOXACIN HCL] Drug Allergy 08-08-19 22 [facility] (5 sources) pneumococcal 7-valent conjugate to Allergy to substance 10-26-19 24 Comment:pneumo nococcal 23 [facility] Medications Current Medications Medication Drug Class(es) Dates Sig (Normalized) Sig (Original) AeroChlaurener MV - (5 sources) Start: 07-30-2022 AeroChamber MV - as directed Jul, Active aspirin 81 mg chewable tablet (20 sources) Platelet Aggregation Inhibitor, Nonsteroidal Anti-inflammatory Drug Start: 10-12-2022 take 1 tablet by mouth once daily Aspirin (Children's Aspirin) 81 mg Tablet,Chewable Active 81 MG PO Daily 90 90 October 11, 2022 11:00pm take 1 tablet by mouth once ailyn y aspirin 81 mg EC tablet Take 1 tablet (81 mg) by mouth once daily. 0 Active atorvastatin 80 mg oral tablet (17 sources) HMG-CoA Reductase Inhibitor Start: 10-26-2023 take 80 mg by mouth once daily at bedtime Atorvastatin Active 80 MG PO Daily at bedtime October 25, 2023 11:00pm Start: 2023 take 1 tablet by da th once daily at bedtime atorvastatin (Lipitor) 80 mg tablet Indications: Atherosclerotic heart disease of [place] coronary artery without angina pectoris TAKE 1 TABLET BY MOUTH EVERYDAY AT BEDTIME 90 tablet 3 08/23/2023 Active Start: 10-21-2022 take 1 tablet by da th at bedtime Atorvastatin Calcium 80 MG Oral Tablet TAKE 1 TABLET AT BEDTIME. Quantity: 90 Refills: 3 Ordered: 21-Oct-2022 Braden Cunha ROOPAJanine Start : 21-Oct-2022 Active azithromycin 250 mg [...] 07/22/2021 Active clopidogrel 75 mg oral tablet (6 sources) P2Y12 Platelet Inhibitor Start: 09-14-2023 End: 09-13-2024 take 75 mg by mouth once daily Clopidogrel Active 75 MG PO Daily October 25, 2023 11:00pm meloxicam 15 mg oral tablet (8 sources) Nonsteroidal Anti-inflammatory Drug Start: 07-08-2021 meloxicam (MOBIC) 15 mg tablet nebulizer machine (5 sources) nebulizer breanne e 1 kit inhalation 4 times daily Active Nitro Sublingual 0.4 0.4mg (20 sources) Nitro Sublingual 0.4 0.4mg 1 Sublingual Every 5min x3 Active nitroglycerin 0.4 mg sublingual tablet (17 sources) Nitrate Vasodilator Start: 10-12-2022 Nitroglycerin Active 0.4 MG SUBLINGUAL Q5M October 11, 2022 11:00pm do not exceed 3 doses per episode ondansetron 4 mg disintegrating oral tablet (12 sources) Serotonin-3 Receptor Antagonist Start: 05-29-2024 take 4 mg by mouth every eight hours Ondansetron Active 4 MG PO Every 8 hours May 29, 2024 12:00am Start: 07-25-2021 ondansetron OD T (ZOFRAN-ODT) 4 mg disintegrating tablet Start: 07-24-2021 ondansetron (Z OFRAN) 4 mg tablet Zofran Active predniSONE 20 mg oral tablet (10 sources) Start: 02-04-2023 take 2 tablets by mouth every twenty-four hours predniSONE 20 MG 2 tablets Orally Once a day for 5 days Jan, Active Start: 11-12-2022 take 2 tablets by mo [facility] every twenty-four hours predniSONE 20 MG [...] (20 sources) Angiotensin 2 Receptor Maryjane Start: End: take 1 tablet by mouth once daily Valsartan Active 0 .ROUTE .COMPLEX May 25, 2024 8:21am TAKE 1 TABLET BY MOUTH EVERY DAY Start: 10-26-2023 End: 02-17-2024 take 40 mg by mouth once daily Valsartan Discontinued 40 MG PO Daily November 17, 2023 9:48pm February 17, 2024 10:37am Start: 10-04-2023 End: 10-26-2023 take 80 mg by mouth once daily Valsartan Discontinued 80 MG PO Daily October 03, 2023 11:00pm October 26, 2023 2:05pm Start: 10-13-2022 End: 10-04-2023 take 160 mg by mouth once daily at bedtime Valsartan Discontinued 160 MG PO Daily at bedtime October 12, 2022 11:00pm October 04, 2023 2:37pm Completed/Discontinued Medications Medication Drug Class(es) Dates Sig (Normalized) Sig (Original) acetaminophen 325 mg oral tablet (11 sources) Start: 10-10-2022 End: 10-01-2023 take 2 tablets by mouth every six hours Acetaminophen (Tylenol) 325 mg Tablet Discontinued 650 MG PO Q6H October 09, 2022 11:00pm October 01, 2023 2:07pm acetaminophen 32 5 mg capsule Take by mouth. 0 Active [id number] 200 actuat albuterol 0.09 mg/actuat metered dose inhaler (20 sources) beta2-Adrenergic Agonist Start: 10-10-2022 End: 10-01-2023 take 1 puff(s) by inhalation every four hours Albuterol Sulfate Discontinued 1 PUFF INHALATION Q4H October 09, 2022 11:00pm October 01, 2023 2:07pm Start: 07-21-2021 albuterol (PRO VENTIL HFA;VENTOLIN HFA) [...] tablet (20 sources) Benzodiazepine Start: 10-01-2023 End: 05-05-2024 take 1 mg by mouth twice daily Alprazolam Discontinued 1 MG PO Twice daily 60 October 04, 2023 9:17am October 04, 2023 9:29am Start: 09-03-2023 take 1 tablet by da th twice daily as needed ALPRAZolam 1 MG TAKE 1 TABLET BY MOUTH TWICE A DAY NEEDED for 30 Aug, Active Start: 06-04-2023 take 1 tablet by da th twice daily as needed for anxiety ALPRAZolam [...] day for 10 days Not-Taking/PRN Fluticasone Propionate (13 sources) Corticosteroid Start: 10-11-19 End: 10-14-19 Fluticasone Propionate Discontinued 1 INH INHALATION Twice daily October 09, 2022 11:00pm October 13, 2022 11:26am Start: 10-10-2022 End: 10-13-2022 Fluticasone Propionate Discontinued [...] device Discontinued 1 INH INHALATION Twice daily October 12, 2022 11:00pm October 01, 2023 2:07pm Start: 10-13-2022 End: 10-01-2023 Fluticasone Propion-Salmeter ol (Advair Diskus) 250-50 mcg/dose blister with device Discontinued 1 INH INHALATION Twice daily October 13, 2022 12:00am October 01, 2023 [...] Losartan Discontinued 100 MG PO Daily October 09, 2022 11:00pm October 13, 2022 11:14am Start: 02-09-2022 take 1 tablet by da th in the morning losartan (COZAAR) 50 mg tablet Take 1 tablet (50 mg total) by mouth in the morning. 0 02/09/2022 Active methylPREDNISolone 4 mg oral tablet (5 sources) Corticosteroid Start: 10-04-2023 End: 10-26-2023 take 1 tablet by mouth once Methylprednisolone (Medrol (Maury)) 4 mg tablets,dose pack Discontinued 0 PO per package directions October 03, 2023 11:00pm October 26, 2023 1:42pm PO PER PKG DIR for 6 days metoprolol tartrate 25 mg oral tablet (9 sources) beta-Adrenergic Maryjane Start: 10-26-2023 End: 02-24-2024 take 25 mg by mouth twice daily Metoprolol Tartrate Discontinued 25 MG PO Twice daily October 25, 2023 11:00pm February 24, 2024 1:21pm Start: 12-24-2022 take 1 tablet by da th twice daily Metoprolol Tartrate 25 MG Oral Tablet Take 1 tablet twice a day Quantity: 180 Refills: 3 Ordered: 28-Jan-2023 Alok Armijo DO Start : 24-Dec-2022 Active promethazine hydrochloride [...] Discontinued 25 MG PO Every morning 30 October 12, 2022 11:00pm October 26, 2023 2:02pm ticagrelor 90 mg oral tablet (20 sources) Start: End: take 1 tablet by mouth once Ticagrelor (Brilinta) 90 mg tablet Discontinued 90 MG PO Once October 04, 2023 2:21pm December 13, 2023 1:05pm Start: 06-27-2023 take 1 tablet by mouth once BR ILINTA 90 mg tablet Take 1 tablet (90 mg total) by mouth every 12 (twelve) hours. 0 06/27/2023 Active Start: 10-12-2022 End: 10-04-2023 take 1 tablet by mouth twice daily Ticagrelor (Brilinta) 90 mg Tablet Discontinued 90 MG PO Twice daily 180 90 October 11, 2022 11:00pm October 04, 2023 2:22pm Brilinta 90mg Ta kke as directed Active triamcinolone acetonide 40 mg/ml injectable suspension (20 sources) Corticosteroid Start: 09-09-2022 Kenalog-40 November, 40 mg Problems Active Problems Problem Classification Problem Date Documented Date Episodic/Chronic Acute myocardial infarction (12 sources) Myocardial infarction; Translations: [Non-ST elevation (NSTEMI) myocardial infarction] Onset: 10-13-2022 10-10-2022 Chronic Allergic reactions (11 sources) Allergy [...] uncomplicated] Onset: 03-05-2022 03-05-2022 Chronic Cardiac dysrhythmias (11 sources) EKG: ventricular tachycardia; Translations: [Ventricular tachycardia seen on property assessment monitor] 10-11-2022 Chronic Chronic obstructive pulmonary disease and bronchiectasis (20 sources) Acute exacerbation of chronic obstructive airways disease; Translations: [Chronic obstructive pulmonary disease with (acute) exacerbation] Onset: 07-29-2015 Chronic Chronic obstructive pulmonary disease and bronchiectasis (12 sources) Bronchitis; Translations: [Bronchitis, not specified as acute or chronic] Episodic Conduction disorders (20 sources) Complete atrioventricular block; Translations: [Atrioventricular block, complete] Onset: 08-06-2023 10-11-2022 Chronic Coronary atherosclerosis and other heart disease (20 sources) Coronary arteriosclerosis; Translations: [Atherosclerotic heart disease of [place] coronary artery without angina pectoris] Onset: 08-06-2023 Chronic Disorders of lipid metabolism (12 sources) [...] 03-16-2019 Chronic Other aftercare (1 source) Other 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 (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; Translations: [OTH 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 CURRENT DRUG THERAPY] Onset: 10-13-2022 Episodic Other [...] [Muscle spasm] Episodic Other connective tissue disease (3 sources) Pain in right lower limb; Translations: [Pain in right leg] 01-05-2024 Episodic Other connective tissue disease (2 sources) Pain in right leg; Translations: [Pain in limb] 01-05-2024 Episodic Other lower respiratory disease (8 sources) Hypoxemia; Translations: [Hypoxemia] 10-11-2022 Episodic Other lower respiratory disease (3 sources) Hypoxemia; Translations: [Hypoxemia] 10-13-2022 Episodic Other lower respiratory disease (20 [...] lung field] Episodic Other non-traumatic joint disorders (7 sources) Pain in right knee; Translations: [Right [...] sources) Cardiomyopathy; Translations: [Other primary cardiomyopathies] Chronic Pneumonia (except that caused by tuberculosis or sexually transmitted disease) (20 sources) Pneumonia; Translations: [Pneumonia, unspecified organism] Episodic Residual codes; unclassified (8 sources) Sleep apnea; Translations: [Sleep apnea, unspecified] 10-11-2022 Chronic Residual codes; unclassified (3 sources) Sleep apnea, unspecified; Translations: [Unspecified sleep apnea] 10-13-2022 Chronic Residual codes; unclassified (20 sources) [...] Onset: 07-29-2015 03-05-2022 Chronic Residual codes; unclassified (6 sources) Tobacco use; Translations: [Tobacco use disorder] Episodic Residual codes; unclassified (13 sources) Tobacco user; Translations: [Tobacco use] Onset: [...] UNSPECIFIED; Translations: [COUGH, UNSPECIFIED] Onset: 07-08-2022 Unclassified (2 sources) Other and unspecified bacterial [...] in right shoulder] Onset: 03-05-2022 03-05-2022 Episodic Pleurisy; pneumothorax; pulmonary collapse (20 sources) Atelectasis; Translations: [Atelectasis] Onset: 11-03-2022 Episodic Residual codes; unclassified (14 sources) Contact [...] Test Name Value Interpretation Reference Range Facility Basophils Auto (Bld) [#/Vol] on 05-07-2024 Basophils (Bld) [#/Vol] 0.0 10 3/uL 0.0-0.1 [facility] Basophils/100 WBC Auto (Bld) on 05-07-2024 Basophils/100 WBC (Bld) 0.6 % 0.2-2.0 [facility] Eosinophils/100 WBC Auto (Bl d)on 05-07-2024 Eosinophils/100 WBC (Bld) 3.8 % 0.9-7.0 [facility] Erythrocyte distribution wid th Auto (RBC) [Ratio]on 05-07-2024 Erythrocyte distribution width (RBC) [Ratio] 12.4 % 11.0-15.0 [facility] Estimated glomerular filtrat ion rate (GFR) non- Americanon 05-07-2024 GFR/1.73 sq M.predicted among non-blacks MDRD (S/P/Bld) [Vol rate/Area] 52 mL/min/{1.73_m2} Low >=60 mL/min/1.7 3m 2 [facility] Globulin Calc (S) [Mass/Vol] on 05-07-2024 Globulin (S) [Mass/Vol] 3.7 g/dL [facility] Hematocrit Auto (Bld) [Volum e fraction]on 05-07-2024 Hematocrit (Bld) [Volume fraction] 39.8 % Low 42.0-54.0 [facility] Hemoglobin [Mass/volume] in Bloodon 05-07-2024 Hemoglobin (Bld) [Mass/Vol] 13.8 g/dL Low 14.0-18.0 [facility] INR in Platelet poor plasma by Coagulation assayon 05-07-2024 INR Coag (PPP) [Relative time] 0.96 {INR} [facility] Comment on above: DESIRED INR:2.0-3.0 CONDITIONS NOT LISTED BELOW2.5-3.5 FOR PROSTHETIC HEART VALVE REPLACEMENT2.5-3.5 RECURRENT THROMBOSIS Laboratory - Chemistry and C hemistry - challengeon 05-07-2024 Albumin [Mass/Vol] 3.7 g/dL 3.4-5.0 [facility] ALP [Catalytic activity/Vol] 67 U/L 46-116 [facility] ALT [Catalytic activity/Vol] 26 U/L 16-63 [facility] AST [Catalytic activity/Vol] 19 U/L 15-37 [facility] Bilirubin [Mass/Vol] 0.4 mg/dL 0.2-1.0 [facility] Calcium [Mass/Vol] 9.3 mg/dL 8.5-10.1 [facility] Chloride [Moles/Vol] 104 mmol/L 98-107 [facility] CO2 [Moles/Vol] 27.0 mmol/L 21.0-32.0 [facility] Creatinine [Mass/Vol] 1.38 mg/dL High 0.70-1.30 [facility] GFR/1.73 sq M.predicted MDRD (S/P/Bld) [Vol rate/Area] mL/min/{1.73_m2} >=60 mL/min/1.7 3m 2 [facility] Glucose [Mass/Vol] 111 mg/dL High 74-106 [facility] Natriuretic peptide B (Bld) [Mass/Vol] 87.0 pg/mL <=900.0 [facility] Potassium [Moles/Vol] 4.1 mmol/L 3.5-5.1 [facility] Protein [Mass/Vol] 7.4 g/dL 6.4-8.2 [facility] Sodium [Moles/Vol] 141 mmol/L 136-145 [facility] Urea nitrogen [Mass/Vol] 18.0 mg/dL 7.0-18.0 [facility] Urea nitrogen/Creatinine [Mass ratio] 13.0 mg/mg [facility] Laboratory - Hematology and Cell countson 05-07-2024 Immature granulocytes/100 WBC (Bld) 0.2 % 0.0-0.5 [facility] Leukocytes [#/volume] correc kal for nucleated erythrocytes in Blood by Automated counon 05-07-2024 WBC corrected for nucl RBC Auto (Bld) [#/Vol] 4.7 10 3/uL 4.0-11.0 [facility] Lymphocytes Auto (Bld) [#/Vo l]on 05-07-2024 Lymphocytes (Bld) [#/Vol] 1.6 10 3/uL 1.2-3.8 [facility] Lymphocytes/100 WBC Auto (Bl d)on 05-07-2024 Lymphocytes/100 WBC (Bld) 34.4 % 20.5-60.0 [facility] MCH Auto (RBC) [Entitic mass ]on 05-07-2024 MCH (RBC) [Entitic mass] 30.9 pg 25.9-34.0 [facility] MCHC Auto (RBC) [Mass/Vol]on 05-07-2024 MCHC (RBC) [Mass/Vol] 34.7 g/dL 29.9-35.2 [facility] MCV Auto (RBC) [Entitic vol] on 05-07-2024 MCV (RBC) [Entitic vol] 89.2 fL 80.0-94.0 [facility] Monocytes Auto (Bld) [#/Vol] on 05-07-2024 Monocytes (Bld) [#/Vol] 0.6 10 3/uL 0.3-0.8 [facility] Monocytes/100 WBC Auto (Bld) on 05-07-2024 Monocytes/100 WBC (Bld) 12.4 % High 1.7-12.0 [facility] Neutrophils Auto (Bld) [#/Vo l]on 05-07-2024 Neutrophils (Bld) [#/Vol] 2.3 10 3/uL 1.4-6.5 [facility] Neutrophils/100 WBC Auto (Bl d)on 05-07-2024 Neutrophils/100 WBC (Bld) 48.6 % 43.0-75.0 [facility] No Panel Informationon 05-07 Eosinophils # (Auto) 0.2 10 3/uL 0.0-0.7 [facility] Immature Granulocyte # (Auto) 0.01 10 3/uL 0.00-0.03 [facility] Troponin I High Sensitivity 15.2 pg/mL 4.0-76.1 [facility] Comment on above: CUT-OFF POINTS HAVE BEEN ESTABLISHED BASED ON THE FOURTHUNIVERSAL DEFINITION OF MYOCARDIAL INFARCTION. THE UPPERREFERENCE LIMIT (URL) OF TROPONIN, DEFINED THE 99THPERCENTILE OF cTnI DISTRIBUTION IN A REFERENCE POPULATION,HAS BEEN CONFIRMED THE DECISION THRESHOLD FOR MIDIAGNOSIS.99TH PERCENTILE = 76.2 PG/MLNOTE: HIGH-SENSITIVITY TROPONIN ASSAY IS NOT INTENDED TO BEUSED IN ISOLATION BUT SHOULD BE INTERPRETED IN CONJUNCTIONWITH OTHER DIAGNOSTIC AND CLINICAL INFORMATION. Platelet mean volume Auto (B ld) [Entitic vol]on 05-07-2024 Platelet mean volume (Bld) [Entitic vol] 9.4 fL Low 9.5-13.5 [facility] Platelets Auto (Bld) [#/Vol] on 05-07-2024 Platelets (Bld) [#/Vol] 212 10 3/uL 150-450 [facility] Prothrombin time (PT)on 04-25 PT Coag (PPP) [Time] 10.2 s 9.0-11.6 [facility] RBC Auto (Bld) [#/Vol]on RBC (Bld) [#/Vol] 4.46 10 6/uL Low 4.70-6.10 [facility] Serum or plasma albumin/glob ulin mass ratioon 05-07-2024 Albumin/Globulin [Mass ratio] 1.0 {ratio} [facility] Serum or plasma anion gap de terminationon 05-07-2024 Anion gap [Moles/Vol] 14.1 mmol/L [facility] CT CTA ABD AND PELVISon 02-23 CT [...] Marie MD on 03/07/2024 12:12 PM Normal [facility] Basophils Auto (Bld) [#/Vol] on 10-09-2023 Basophils (Bld) [#/Vol] 0.0 10 3/uL 0.0-0.1 [facility] Basophils/100 WBC Auto (Bld) on 10-09-2023 Basophils/100 WBC (Bld) 0.6 % 0.2-2.0 [facility] Eosinophils/100 WBC Auto (Bl d)on 10-09-2023 Eosinophils/100 WBC (Bld) 3.9 % 0.9-7.0 [facility] Erythrocyte distribution wid th Auto (RBC) [Ratio]on 10-09-2023 Erythrocyte distribution width (RBC) [Ratio] 13.2 % 11.0-15.0 [facility] Estimated glomerular filtrat ion rate (GFR) non- Americanon 10-09-2023 GFR/1.73 sq M.predicted among non-blacks MDRD (S/P/Bld) [Vol rate/Area] 45 mL/min/{1.73_m2} >=60 [facility] Globulin Calc (S) [Mass/Vol] on 10-09-2023 Globulin (S) [Mass/Vol] 3.4 g/dL [facility] Hematocrit Auto (Bld) [Volum e fraction]on 10-09-2023 Hematocrit (Bld) [Volume fraction] 36.4 % 42.0-54.0 [facility] Hemoglobin [Mass/volume] in Bloodon 10-09-2023 Hemoglobin (Bld) [Mass/Vol] 12.1 g/dL 14.0-18.0 [facility] Laboratory - Chemistry and C hemistry - challengeon 10-09-2023 Albumin [Mass/Vol] 3.5 g/dL 3.4-5.0 [facility] ALP [Catalytic activity/Vol] 64 U/L 46-116 [facility] ALT [Catalytic activity/Vol] 35 U/L 16-63 [facility] AST [Catalytic activity/Vol] 24 U/L 15-37 [facility] Bilirubin [Mass/Vol] 0.4 mg/dL 0.2-1.0 [facility] Calcium [Mass/Vol] 9.0 mg/dL 8.5-10.1 [facility] Chloride [Moles/Vol] 102 mmol/L 98-107 [facility] CO2 [Moles/Vol] 27.8 mmol/L 21.0-32.0 [facility] Creatinine [Mass/Vol] 1.58 mg/dL 0.70-1.30 [facility] GFR/1.73 sq M.predicted MDRD (S/P/Bld) [Vol rate/Area] 54 mL/min/{1.73_m2} >=60 [facility] Glucose [Mass/Vol] 96 mg/dL 74-106 [facility] Potassium [Moles/Vol] 4.3 mmol/L 3.5-5.1 [facility] Protein [Mass/Vol] 6.9 g/dL 6.4-8.2 [facility] Sodium [Moles/Vol] 136 mmol/L 136-145 [facility] Urea nitrogen [Mass/Vol] 26.0 mg/dL 7.0-18.0 [facility] Urea nitrogen/Creatinine [Mass ratio] 16.5 mg/mg [facility] Laboratory - Hematology and Cell countson 10-09-2023 Immature granulocytes/100 WBC (Bld) 0.6 % 0.0-0.5 [facility] Leukocytes [#/volume] correc kal for nucleated erythrocytes in Blood by Automated counon 10-09-2023 WBC corrected for nucl RBC Auto (Bld) [#/Vol] 5.2 10 3/uL 4.0-11.0 [facility] Lymphocytes Auto (Bld) [#/Vo l]on 10-09-2023 Lymphocytes (Bld) [#/Vol] 1.5 10 3/uL 1.2-3.8 [facility] Lymphocytes/100 WBC Auto (Bl d)on 10-09-2023 Lymphocytes/100 WBC (Bld) 28.9 % 20.5-60.0 [facility] MCH Auto (RBC) [Entitic mass ]on 10-09-2023 MCH (RBC) [Entitic mass] 30.9 pg 25.9-34.0 [facility] MCHC Auto (RBC) [Mass/Vol]on 10-09-2023 MCHC (RBC) [Mass/Vol] 33.2 g/dL 29.9-35.2 [facility] MCV Auto (RBC) [Entitic vol] on 10-09-2023 MCV (RBC) [Entitic vol] 93.1 fL 80.0-94.0 [facility] Monocytes Auto (Bld) [#/Vol] on 10-09-2023 Monocytes (Bld) [#/Vol] 0.8 10 3/uL 0.3-0.8 [facility] Monocytes/100 WBC Auto (Bld) on 10-09-2023 Monocytes/100 WBC (Bld) 16.1 % 1.7-12.0 [facility] Neutrophils Auto (Bld) [#/Vo l]on 10-09-2023 Neutrophils (Bld) [#/Vol] 2.6 10 3/uL 1.4-6.5 [facility] Neutrophils/100 WBC Auto (Bl d)on 10-09-2023 Neutrophils/100 WBC (Bld) 49.9 % 43.0-75.0 [facility] No Panel Informationon 10-08 Eosinophils # (Auto) 0.2 10 3/uL 0.0-0.7 [facility] Immature Granulocyte # (Auto) 0.03 10 3/uL 0.00-0.03 [facility] Platelet mean volume Auto (B ld) [Entitic vol]on 10-09-2023 Platelet mean volume (Bld) [Entitic vol] 9.4 fL 9.5-13.5 [facility] Platelets Auto (Bld) [#/Vol] on 10-09-2023 Platelets (Bld) [#/Vol] 228 10 3/uL 150-450 [facility] RBC Auto (Bld) [#/Vol]on RBC (Bld) [#/Vol] 3.91 10 6/uL 4.70-6.10 [facility] Serum or plasma albumin/glob ulin mass ratioon 10-09-2023 Albumin/Globulin [Mass ratio] 1.0 {ratio} [facility] Serum or plasma anion gap de terminationon 10-09-2023 Anion gap [Moles/Vol] 10.5 mmol/L [facility] CT CTA ABD AND PELVISon 09-23 CT [...] Marie MD on 10/04/2023 3:36 PM Normal [facility] Office Visit (Cardiology)on 12-24-2022 Follow-up visit Diagnoses/Problems Assessed Coronary artery disease involving chinik coronary artery of chinik heart without angina pectoris (414.01) (I25.10) Preoperative [...] we can help. You may also call [phone] for free resources and assistance.; Status:Complete - [...] December. 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 Normal [employer] Tobacco Screening.on 023 Fall risk assessment c) Not medically indicated [facility] 250 DO Work Phone: Tobacco use status [facility] a) Yes [facility] 250 DO Work Phone: Tobacco Screening. Yes [facility] 250 DO Work Phone: Cardiovasc Arrhythmia Result son 11-02-2022 Cardiovasc Arrhythmia Results Reason For Visit Reason for Visit: Holter Monitor: HECTOR is here for the application of a 48 hour Holter monitor. Ordering Physician: JANINE CUNHA Diagnosis: CAD SINUS PAUSE [facility] equipment agreement signed. HECTOR understands monitor is to be returned on: 11-03-22 Monitor number [id number] applied. Holter monitor returned and downloaded. Procedure Holter monitor printed and placed on Dr. Gonsalves desk to dictate for Dr. Armijo. 1?the rhythm was sinus throughout the recording [...] symptomatic Diagnosis/Problems Assessed Coronary artery disease involving chinik coronary artery of chinik heart without angina pectoris (414.01) (I25.10) Sinus pause (426.6) (I45.5) Future Appointments Date/TimeProviderSpecialt ySite 01/19/2023 02:30 Alok Kirkland DOCardiology703 [facility] 2 Jonathan 250 DO Signatures Electronically signed by : Mallory Fan MA; Nov 02 2022 2:10PM EST (Author) Electronically signed by : Mohsen Gonsalves MD; Nov 08 2022 5:34PM EST (Author) Normal [employer] Calcium [Mass/volume] in Ser um or PlasmaOrdered By: Janine Cunha on 10-28-2022 Calcium [Mass/Vol] 9.5 mg/dL 8.6-10.3 [facility] Carbon dioxide, total [Moles /volume] in Serum or PlasmaOrdered By: Janine Cunha on 10-28-2022 CO2 [Moles/Vol] 25.8 mmol/L 21.0-31.0 [facility] Chloride [Moles/volume] in S lisa or PlasmaOrdered By: Janine Cunha on 10-28-2022 Chloride [Moles/Vol] 107 mmol/L 98-107 [facility] Creatinine [Mass/volume] in Serum or PlasmaOrdered By: Janine Cunha on 10-28-2022 Creatinine [Mass/Vol] 1.16 mg/dL 0.70-1.30 [facility] Glucose [Mass/volume] in Ser um or PlasmaOrdered By: Janine Cunha on 10-28-2022 Glucose [Mass/Vol] 100 mg/dL 70-100 [facility] Comment on above: ADA recommended refe rence rangeRandom Glucose Reference Range is dependent on time and content of last meal. Glucose of more than 200 mg/dL in a nonstressed, ambulatory subject supports the diagnosis of Diabetes Mellitus. No Panel InformationOrdered By: Janine Cunha on 10-28-2022 Estimated GFR (CKD-EPI) > 60.0 mL/Min [facility] Creatinine Clearance (Chem N/A [facility] No Panel Informationon 10-28 > 60.0 Normal [facility] Work Phone: 11.6\S\11.6 Normal 6.0-15.0 [facility] 600 DO Work Phone: 9.5\S\9.5 Normal 8.6-10.3 [facility] 600 DO Work Phone: Comment on above: PERFORMED BY:[facility] [place] [place], [place] [id number] MEDICAL DIRECTORJANETTE DE LA FUENTE M.D. 25.8\S\25.8 Normal 21.0-31.0 [facility] 600 DO Work Phone: 107\S\107 Normal 98-107 [facility] 600 DO Work Phone: 4.4\S\4.4 Normal 3.5-5.1 [facility] 600 DO Work Phone: 140\S\140 Normal 136-145 [facility] 600 DO Work Phone: 1.16\S\1.16 Normal 0.70-1.30 [facility] 600 DO Work Phone: 27\S\27 above high threshold 7-25 [facility] 600 DO Work Phone: 100\S\100 Normal 70-100 [facility] 600 DO Work Phone: Comment on above: Random Glucose Refer ence Range is dependent on time and content of last meal. Glucose of more than 200 mg/dL in a nonstressed, ambulatory subject supports the diagnosis of Diabetes Mellitus. ADA recommended reference range Potassium [Moles/volume] in Serum or PlasmaOrdered By: Janine Cunha on 10-28-2022 Potassium [Moles/Vol] 4.4 mmol/L 3.5-5.1 [facility] Serum or plasma anion gap de terminationOrdered By: Janine Cunha on 10-28-2022 Anion gap [Moles/Vol] 11.6 mmol/L 6.0-15.0 [facility] Sodium [Moles/volume] in Ser um or PlasmaOrdered By: Janine Cunha on 10-28-2022 Sodium [Moles/Vol] 140 mmol/L 136-145 [facility] Urea nitrogen [Mass/volume] in Serum or PlasmaOrdered By: Janine Cunha on 10-28-2022 Urea nitrogen [Mass/Vol] 27 mg/dL 7-25 [facility] Tobacco Screening.on 023 Adult depression screening assessment No [facility] 250 DO Work Phone: Fall risk assessment a) No falls within the last year [facility] [employer] 250 DO Work Phone: Tobacco use status [facility] a) Yes [facility] 250 DO Work Phone: Tobacco Screening. Yes [facility] 250 DO Work Phone: Calcium [Mass/volume] in Ser um or PlasmaOrdered By: Rubén Tatum on 10-12-2022 Calcium [Mass/Vol] 9.0 mg/dL 8.6-10.3 [facility] Carbon dioxide, total [Moles /volume] in Serum or PlasmaOrdered By: Rubén Tatum on 10-12-2022 CO2 [Moles/Vol] 25.2 mmol/L 21.0-31.0 [facility] Chloride [Moles/volume] in S lisa or PlasmaOrdered By: Rubén Tatum on 10-12-2022 Chloride [Moles/Vol] 107 mmol/L 98-107 [facility] Creatinine [Mass/volume] in Serum or PlasmaOrdered By: Rubén Tatum on 10-12-2022 Creatinine [Mass/Vol] 1.09 mg/dL 0.70-1.30 [facility] Glucose [Mass/volume] in Ser um or PlasmaOrdered By: Rubén Tatum on 10-12-2022 Glucose [Mass/Vol] 100 mg/dL 74-109 [facility] Comment on above: ADA recommended refe rence rangeRandom Glucose Reference Range is dependent on time and content of last meal. Glucose of more than 200 mg/dL in a nonstressed, ambulatory subject supports the diagnosis of Diabetes Mellitus. Laboratory - Chemistry and C hemistry - challengeOrdered By: Rubén Tatum on 10-12-2022 GFR/1.73 sq M.predicted MDRD (S/P/Bld) [Vol rate/Area] mL/min/{1.73_m2} [facility] Magnesium [Mass/volume] in S lisa or PlasmaOrdered By: Rubén Tatum on 10-12-2022 Magnesium [Mass/Vol] 2.2 mg/dL 1.9-2.7 [facility] Natriuretic peptide B [Mass/ Vol]Ordered By: Rubén Tatum on 10-12-2022 Natriuretic peptide B (Bld) [Mass/Vol] 91.0 pg/mL 5-100 [facility] No Panel InformationOrdered By: Rubén Tatum on 10-12-2022 Pharmacy Creatinine Clearance (Chem 79.69 [facility] Potassium [Moles/volume] in Serum or PlasmaOrdered By: Rubén Tatum on 10-12-2022 Potassium [Moles/Vol] 4.2 mmol/L 3.5-5.1 [facility] Serum or plasma anion gap de terminationOrdered By: Rubén Tatum on 10-12-2022 Anion gap [Moles/Vol] 12.0 mmol/L 6.0-15.0 [facility] Sodium [Moles/volume] in Ser um or PlasmaOrdered By: Rubén Tatum on 10-12-2022 Sodium [Moles/Vol] 140 mmol/L 136-145 [facility] Urea nitrogen [Mass/volume] in Serum or PlasmaOrdered By: Rubén Tatum on 10-12-2022 Urea nitrogen [Mass/Vol] 23 mg/dL 7-25 [facility] Alanine aminotransferase [En zymatic activity/volume] in Serum or PlasmaOrdered By: Rubén Tatum on 10-11-2022 ALT [Catalytic activity/Vol] 18 U/L 7-52 [facility] Albumin [Mass/volume] in Ser um or Plasma by Bromocresol green (BCG) dye binding methoOrdered By: Rubén Tatum on 10-11-2022 Albumin BCG dye [Mass/Vol] 3.9 g/dL 3.5-5.7 [facility] Alkaline phosphatase [Enzyma tic activity/volume] in Serum or PlasmaOrdered By: Rubén Tatum on 10-11-2022 ALP [Catalytic activity/Vol] 46 U/L 34-104 [facility] Aspartate aminotransferase [ Enzymatic activity/volume] in Serum or PlasmaOrdered By: Rubén Tatum on 10-11-2022 AST [Catalytic activity/Vol] 30 U/L 13-39 [facility] Basophils Auto (Bld) [#/Vol] Ordered By: Galo Dent on 10-11-2022 Basophils (Bld) [#/Vol] 0.0 10*3/uL 0.0-0.2 [facility] Basophils/100 WBC Auto (Bld) Ordered By: Galo Dent on 10-11-2022 Basophils/100 WBC (Bld) 0.5 % . [facility] Bilirubin.total [Mass/volume ] in Serum or PlasmaOrdered By: Rubén Tatum on 10-11-2022 Bilirubin [Mass/Vol] 0.4 mg/dL 0.3-1.0 [facility] Cholesterol [Mass/volume] in Serum or PlasmaOrdered By: Rubén Tatum on 10-11-2022 Cholesterol [Mass/Vol] 221 mg/dL 140-200 [facility] Comment on above: Chol less than 200 m g/dl low riskChol 201-239 mg/dl borderline riskChol 240 mg/dl and greater high risk Cholesterol in LDL Calc [Mas s/Vol]Ordered By: Rubén Tatum on 10-11-2022 Cholesterol in LDL [Mass/Vol] 149 mg/dL 0-100 [facility] Comment on above: LDL ATP III CLASSIFI CATIONLDL less than 100 mg/dL OptimalLDL 100-129 mg/dL Near or above optimalLDL 130-159 mg/dL Borderline highLDL 160-189 mg/dL HighLDL greater than 189 mg/dL Very high Cholesterol in VLDL Calc [Ma ss/Vol]Ordered By: Rubén Tatum on 10-11-2022 Cholesterol in VLDL [Mass/Vol] 30 mg/dL [facility] Eosinophils Auto (Bld) [#/Vo l]Ordered By: Galo Dent on 10-11-2022 Eosinophils (Bld) [#/Vol] 0.2 10*3/uL 0.0-0.45 [facility] Eosinophils/100 WBC Auto (Bl d)Ordered By: Galo Dent on 10-11-2022 Eosinophils/100 WBC (Bld) 3.7 % . [facility] Erythrocyte distribution wid th Auto (RBC) [Ratio]Ordered By: Galo Dent on 10-11-2022 Erythrocyte distribution width (RBC) [Ratio] 14.9 % 12.0-14.8 [facility] Globulin Calc (S) [Mass/Vol] Ordered By: Rubén Tatum on 10-11-2022 Globulin (S) [Mass/Vol] 2.5 g/dL [facility] Glucose mean value [Mass/vol ume] in Blood Estimated from glycated hemoglobinOrdered By: Galo Dent on 10-11-2022 Average glucose Estimated from glycated hemoglobin (Bld) [Mass/Vol] 120 mg/dL [facility] Hematocrit Auto (Bld) [Volum e fraction]Ordered By: Galo Dent on 10-11-2022 Hematocrit (Bld) [Volume fraction] 37.7 % 38.8-50.0 [facility] Hemoglobin A1c percentageOrd ered By: Galo Dent on 10-11-2022 HbA1c (Bld) [Mass fraction] 5.8 % 4.3-5.6 [facility] Comment on above: Increased risk for d iabetes: 5.7 - 6.4diabetes: >6.4glycemic control for adults with diabetes: <7.0 Hemoglobin [Mass/volume] in BloodOrdered By: Galo Dent on 10-11-2022 Hemoglobin (Bld) [Mass/Vol] 12.7 g/dL 13.0-17.0 [facility] Laboratory - CoagulationOrde red By: Galo Dent on 10-11-2022 PT Coag (PPP) [Time] 11.3 s 9.0-12.9 [facility] Leukocytes [#/volume] correc kal for nucleated erythrocytes in Blood by Automated counOrdered By: Galo Dent on 10-11-2022 WBC corrected for nucl RBC Auto (Bld) [#/Vol] 6.6 10*3/uL 4.1-10.5 [facility] Lymphocytes Auto (Bld) [#/Vo l]Ordered By: Galo Dent on 10-11-2022 Lymphocytes (Bld) [#/Vol] 1.4 10*3/uL 1.00-4.8 [facility] Lymphocytes/100 WBC Auto (Bl d)Ordered By: Galo Dent on 10-11-2022 Lymphocytes/100 WBC (Bld) 21.8 % . [facility] MCH Auto (RBC) [Entitic mass ]Ordered By: Galo Dent on 10-11-2022 MCH (RBC) [Entitic mass] 30.1 pg 27.5-35.2 [facility] MCHC Auto (RBC) [Mass/Vol]Or dered By: Galo Dent on 10-11-2022 MCHC (RBC) [Mass/Vol] 33.7 g/dL 32.5-35.6 [facility] MCV Auto (RBC) [Entitic vol] Ordered By: Galo Dent on 10-11-2022 MCV (RBC) [Entitic vol] 89.4 fL 83.5-101 [facility] Monocytes Auto (Bld) [#/Vol] Ordered By: Galo Dent on 10-11-2022 Monocytes (Bld) [#/Vol] 0.7 10*3/uL 0.0-0.8 [facility] Monocytes/100 WBC Auto (Bld) Ordered By: Galo Dent on 10-11-2022 Monocytes/100 WBC (Bld) 10.2 % . [facility] Neutrophils Auto (Bld) [#/Vo l]Ordered By: Galo Dent on 10-11-2022 Neutrophils (Bld) [#/Vol] 4.2 10*3/uL 1.8-7.7 [facility] Neutrophils/100 WBC Auto (Bl d)Ordered By: Galo Dent on 10-11-2022 Neutrophils/100 WBC (Bld) 63.8 % . [facility] Nucleated erythrocytes [Pres ence] in Blood by Automated countOrdered By: Galo Dent on 10-11-2022 Nucleated RBC Auto Ql (Bld) 0.1 /100{WBC} 0-0.5 [facility] Platelet mean volume Auto (B ld) [Entitic vol]Ordered By: Galo Dent on 10-11-2022 Platelet mean volume (Bld) [Entitic vol] 7.3 fL 6.6-10.1 [facility] Platelet poor plasma interna tional normalized ratio (INR) by coagulation assay (relatOrdered By: Galo Dent on 10-11-2022 INR Coag (PPP) [Relative time] 1.0 {INR} [facility] Comment on above: INR Therapeutic Rang e [...] 10-11-2022 Platelets (Bld) [#/Vol] 203 10*3/uL 150-450 [facility] Protein [Mass/volume] in Ser um or PlasmaOrdered By: Rubén Tatum on 10-11-2022 Protein [Mass/Vol] 6.4 g/dL 6.4-8.9 [facility] RBC Auto (Bld) [#/Vol]Ordere d By: Galo Dent on 10-11-2022 RBC (Bld) [#/Vol] 4.21 10*6/uL 3.90-5.60 [facility] Serum or plasma albumin/glob ulin mass ratioOrdered By: Rubén Tatum on 10-11-2022 Albumin/Globulin [Mass ratio] 1.6 {ratio} [facility] Serum or plasma high density lipoprotein (HDL) cholesterol measurementOrdered By: Rubén Tatum on 10-11-2022 Cholesterol in HDL [Mass/Vol] 42 mg/dL 29-71 [facility] Comment on above: HDL CHOL ATP-III CLA SSIFICATION Cardiovascular RiskHDL > or equal to 60 mg/dL LOWHDL < 40 mg/dL HIGH Serum or plasma total choles terol/high density lipoprotein (HDL) cholesterol mass ratOrdered By: Rubén Tatum on 10-11-2022 Cholesterol.total/Chol esterol in HDL [Mass ratio] 5.3 {ratio} <5.0 [facility] Triglyceride [Mass/volume] i n Serum or PlasmaOrdered By: Rubén Tatum on 10-11-2022 Triglyceride [Mass/Vol] 152 mg/dL 0-149 [facility] Comment on above: TRIG ATP III CLASSIF ICATIONTRIG less than 150 mg/dL NormalTRIG 150-199 mg/dL Borderline highTRIG 200-500 mg/dL High TRIG greater than 500 mg/dL Very highStandard traceable to the Center for Disease Conrtrol and Prevention (CDC) test method. Troponin I.cardiac [Mass/vol ume] in Serum or Plasma by Detection limit <= 0.01 ng/Ordered By: Rubén Tatum on 10-11-2022 Troponin I.cardiac DL <= 0.01 ng/mL [Mass/Vol] 3965.8 pg/mL 0.0-20.0 [facility] Comment on above: Critical Result : Ca lled to and read back by: HECTOR LOCO at: 10/11/2022 06:45:50 by:[id number] WBC Auto (Bld) [#/Vol]Ordere d By: Galo Dent on 10-11-2022 WBC (Bld) [#/Vol] 6.6 10*3/uL 4.1-10.5 [facility] AMYLASEon 10-10-2022 Amylase [Catalytic activity/Vol] 40 U/L Normal 25-115 [facility] Comment on above: Performed By: #### A MY, CMP, LIPA #### [facility] [address] [address] [address] Carrington Chandler Activated partial thrombopla stin time (aPTT) in platelet poor plasma by coagulation aOrdered By: Galo Dent on 10-10-2022 aPTT Coag (PPP) [Time] 35.9 s 25.1-36.5 [facility] CARDIAC ARLIN ADMITon 023 CK [Catalytic activity/Vol] 530 U/L Critically high 39-308 [facility] Comment on above: Performed By: #### A MY, CMP, LIPA #### [facility] [address] [address] [address] Carrington Chandler CK.MB [Mass/Vol] 60.47 ng/mL Critically high <=3.60 [facility] Comment on above: Performed By: #### A MY, CMP, LIPA #### [facility] [address] [address] [address] Carrington Chandler HSTROP 9166.1 pg/mL Critically high 4.0-76.1 [facility] Comment on above: Result Comment: CUT- OFF POINTS HAVE BEEN ESTABLISHED BASED ON THE FOURTH UNIVERSAL DEFINITIONS OF MYOCARDIAL INFARCTION. THE UPPER REFERENCE LIMIT (URL) OF TROPONIN, DEFINED THE 99TH PERCENTILE OF cTnI DISTRIBUTION IN A REFERENCE POPULATION, HAS BEEN CONFIRMED THE DECISION THRESHOLD FOR NM DIAGNOSIS. Performed By: #### A MY, CMP, LIPA #### [facility] [address] [address] [address] Carrington Chandler SAULO 108 ng/mL Critically high 16-96 [facility] Comment on above: Performed By: #### A MY, CMP, LIPA #### [facility] [address] [address] [address] Carrington Chandler CBC AUTO DIFFon 10-10-2022 BASO # 0.0 103/ul Normal 0.0-0.1 [facility] Comment on above: Performed By: #### B MP #### [facility] [address] [address] [address] Carrington Chandler Basophils/100 WBC (Bld) 0.4 % Normal 0.2-2.0 [facility] Comment on above: Performed By: #### B MP #### [facility] [address] [address] [address] Carrington Chandler EO # 0.3 103/ul Normal 0.0-0.7 [facility] Comment on above: Performed By: #### B MP #### [facility] [address] [address] [address] Carrington Chandler Eosinophils/100 WBC (Bld) 4.9 % Normal 0.9-7.0 [facility] Comment on above: Performed By: #### B MP #### [facility] [address] [address] [address] Carrington Chandler Erythrocyte distribution width (RBC) [Ratio] 13.8 % Normal 11.0-15.0 [facility] Comment on above: Performed By: #### B MP #### [facility] [address] [place] [address] Dr. Carrington Chandler Hematocrit (Bld) [Volume fraction] 38.1 % Critically low 42.0-54.0 [facility] Comment on above: Performed By: #### B MP #### [facility] [address] [address] [address] Carrington Chandler Hemoglobin (Bld) [Mass/Vol] 13.1 g/dL Critically low 14.0-18.0 [facility] Comment on above: Performed By: #### B MP #### [facility] [address] [address] [address] Carrington Chandler IG # 0.01 10e3/ul Normal 0.00-0.03 [facility] Comment on above: Performed By: #### B MP #### [facility] [address] [address] [address] Carrington Chandler IG % 0.2 % Normal 0.0-0.5 [facility] Comment on above: Performed By: #### B MP #### [facility] [address] [place] [address] Dr. Carrington Chandler LYMPH # 1.8 103/ul Normal 1.2-3.8 [facility] Comment on above: Performed By: #### B MP #### [facility] [address] [address] [address] Carrington Chandler Lymphocytes/100 WBC (Bld) 33.5 % Normal 20.5-60.0 [facility] Comment on above: Performed By: #### B MP #### [facility] [address] [place] [address] Dr. Carrington Chandler MANUAL DIFF REQ NO Normal [facility] Comment on above: Performed By: #### B MP #### [facility] [address] [address] [address] Carrington Chandler MCH (RBC) [Entitic mass] 30.7 pg Normal 25.9-34.0 [facility] Comment on above: Performed By: #### B MP #### [facility] [address] [address] [address] Carrington Chandler MCHC (RBC) [Mass/Vol] 34.4 g/dL Normal 29.9-35.2 [facility] Comment on above: Performed By: #### B MP #### [facility] [address] [address] [address] Carrington Chandler MCV (RBC) [Entitic vol] 89.2 fL Normal 80.0-94.0 [facility] Comment on above: Performed By: #### B MP #### [facility] [address] [address] [address] Carrington Chandler MONO # 0.6 103/ul Normal 0.3-0.8 [facility] Comment on above: Performed By: #### B MP #### [facility] [address] [address] [address] Carrington Chandler Monocytes/100 WBC (Bld) 11.8 % Normal 1.7-12.0 [facility] Comment on above: Performed By: #### B MP #### [facility] [address] [place] [address] Dr. Carrington Chandler NEUT # 2.6 103/ul Normal 1.4-6.5 [facility] Comment on above: Performed By: #### B MP #### [facility] [address] [address] [address] Carrington Chandler Neutrophils/100 WBC (Bld) 49.2 % Normal 43.0-75.0 [facility] Comment on above: Performed By: #### B MP #### [facility] [address] [address] [address] Carrington Chandler Platelet mean volume (Bld) [Entitic vol] 9.2 fL Critically low 9.5-13.5 [facility] Comment on above: Performed By: #### B MP #### [facility] [address] [address] [address] Carrington Chandler PLT 213 103/ul Normal 150-450 [facility] Comment on above: Performed By: #### B MP #### [facility] [address] [address] [address] Carrington Chandler RBC 4.27 106/ul Critically low 4.70-6.10 [facility] Comment on above: Performed By: #### B MP #### [facility] [address] [place] [address] Dr. Carrington Chandler WBC 5.4 103/ul Normal 4.0-11.0 [facility] Comment on above: Performed By: #### B MP #### [facility] [address] [place] [address] Dr. Carrington Chandler LIPASEon 10-10-2022 Lipase [Catalytic activity/Vol] 212.0 U/L Normal 73.0-393.0 [facility] Comment on above: Performed By: #### A MY, CMP, LIPA #### [facility] [address] [place] [address] Dr. Carrington Chandler PROF 14(COMP METB)on 023 Albumin [Mass/Vol] 3.9 g/dL Normal 3.4-5.0 [facility] Comment on above: Performed By: #### A MY, CMP, LIPA #### [facility] [address] [place] [address] Dr. Carrington Chandler Albumin/Globulin [Mass ratio] 1.2 {ratio} Normal [facility] Comment on above: Performed By: #### A MY, CMP, LIPA #### [facility] [address] [place] [address] Dr. Carrington Chandler ALP [Catalytic activity/Vol] 67 U/L Normal 46-116 [facility] Comment on above: Performed By: #### A MY, CMP, LIPA #### [facility] [address] [place] [address] Dr. Carrington Chandler ALT [Catalytic activity/Vol] 30 U/L Normal 16-63 [facility] Comment on above: Performed By: #### A MY, CMP, LIPA #### [facility] [address] [place] [address] Dr. Carrington Chandler Anion gap [Moles/Vol] 12.8 mmol/L Normal [facility] Comment on above: Performed By: #### A MY, CMP, LIPA #### [facility] [address] [place] [address] Dr. Carrington Chandler AST [Catalytic activity/Vol] 58 U/L Critically high 15-37 [facility] Comment on above: Performed By: #### A MY, CMP, LIPA #### [facility] [address] [place] [address] Dr. Carrington Chandler Bilirubin [Mass/Vol] 0.3 mg/dL Normal 0.2-1.0 [facility] Comment on above: Performed By: #### A MY, CMP, LIPA #### [facility] [address] [place] [address] Dr. Carrington Chandler Calcium [Mass/Vol] 8.9 mg/dL Normal 8.5-10.1 [facility] Comment on above: Performed By: #### A MY, CMP, LIPA #### [facility] [address] [place] [address] Dr. Carrington Chandler Chloride [Moles/Vol] 101 mmol/L Normal 98-107 [facility] Comment on above: Performed By: #### A MY, CMP, LIPA #### [facility] [address] [place] [address] Dr. Carrington Chandler CO2 [Moles/Vol] 26.0 mmol/L Normal 21.0-32.0 [facility] Comment on above: Performed By: #### A MY, CMP, LIPA #### [facility] [address] [place] [address] Dr. Carrington Chandler Creatinine [Mass/Vol] 0.98 mg/dL Normal 0.70-1.30 [facility] Comment on above: Performed By: #### A MY, CMP, LIPA #### [facility] [address] [place] [address] Dr. Carrington Chandler EGFR-AF MAURITANIAN >60 Normal >=60 [facility] Comment on above: Performed By: #### A MY, CMP, LIPA #### [facility] [address] [place] [address] Dr. Carrington Chandler EGFR-NON AF MAURITANIAN >60 Normal >=60 [facility] Comment on above: Performed By: #### A MY, CMP, LIPA #### [facility] [address] [place] [address] Dr. Carrington Chandler Globulin (S) [Mass/Vol] 3.2 g/dL Normal [facility] Comment on above: Performed By: #### A MY, CMP, LIPA #### [facility] [address] [address] [address] Carrington Chandler Glucose [Mass/Vol] 101 mg/dL Normal 74-[address] [facility] Comment on above: Performed By: #### A MY, CMP, LIPA #### [facility] [address] [address] [address] Carrington Chandler Potassium [Moles/Vol] 3.8 mmol/L Normal 3.5-5.1 [facility] Comment on above: Performed By: #### A MY, CMP, LIPA #### [facility] [address] [place] [address] Dr. Carrington Chandler Protein [Mass/Vol] 7.1 g/dL Normal 6.4-8.[address] [facility] Comment on above: Performed By: #### A MY, CMP, LIPA #### [facility] [address] [address] [address] Carrington Chandler Sodium [Moles/Vol] 136 mmol/L Normal 136-[address] [facility] Comment on above: Performed By: #### A MY, CMP, LIPA #### [facility] [address] [address] [address] Carrington Chandler Urea nitrogen [Mass/Vol] 19.0 mg/dL Critically high 7.0-18.0 [facility] Comment on above: Performed By: #### A MY, CMP, LIPA #### [facility] [address] [address] [address] Carrington Chandler Urea nitrogen/Creatinine [Mass ratio] 19.4 mg/mg Normal [facility] Comment on above: Performed By: #### A MY, CMP, LIPA #### [facility] [address] [address] [address] Carrington Chandler PROTIMEon 10-10-2022 INR Coag (PPP) [Relative time] {INR} Normal [facility] Comment on above: Performed By: #### B MP #### [facility] [address] [place], [place] [address] Dr. Carrington Chandler INR GUIDELINES SEE BELOW Normal [facility] Comment on above: Result Comment: LYNDON RED INR: 2.0 - 3.0 CONDITIONS NOT LISTED BELOW 2.5 - 3.5 FOR PROSTHETIC HEART VALVE REPLACEMENT 2.5 - 3.5 RECURRENT THROMBOSIS Performed By: #### B MP #### [facility] [id number] Carrington Chandler PT Coag (PPP) [Time] 9.7 s Normal 9.0-11.6 [facility] Comment on above: Performed By: #### B MP #### [facility] [address] [place] [address] Dr. Carrington Chandler PTTon 10-10-2022 aPTT Coag (Bld) [Time] 29.5 s Normal 22.3-36.2 [facility] Comment on above: Performed By: #### B MP #### [facility] [address] [place] [address] Dr. Carrington Chandler XR ABD FLAT UP_PA Jean-Pierre 10-10 XR [...] XIOMARA SCHNEIDER Date: 2022-10-10 00:33 Normal [facility] XR knee RT 3Von 09-09-2022 XR knee RT 3V [facility] [employer] Other XR knee RT 3V [facility] Main [facility] [employer] Other XR knee RT 3V [address] [facility] [employer] Other XR [place] 3[place] [address] [facility] [employer] Other XR knee RT 3V XRay Report [facility] [employer] Other XR knee RT 3V Signed [employer] Other XR knee RT 3V Patient: eHctor Gaspar MR#: [id number] [place] [employer] Other XR knee RT 3V 187 [employer] Other XR knee RT 3V : 1960 Acct:[id number] [place] [employer] Other XR knee RT 3V Age/Sex: 62 / M ADM Date: 09/09/22 [employer] Other XR knee RT 3V Loc: [place] Room: Type : [facility] [employer] Other XR knee RT 3V Attending Dr: Wagner Marrufo DO [employer] Other XR knee RT 3V Copies to: Wagner Marrufo DO [employer] Other XR knee RT 3V Ordering Provider: Judy Marrufo DO [employer] Other XR knee RT 3V Date of Service: 09/09/22 [employer] Other XR knee RT 3V XR/XR knee RT 3V - NOT FOR ER USE: Acute pain of right knee [employer] Other XR knee RT 3V [facility] [employer] Other XR knee RT 3V CLINICAL HISTORY: Generalized right knee pain for 2 weeks. [employer] Other XR knee RT 3V COMPARISON: None [employer] Other XR knee RT 3V FINDINGS: [employer] Other XR knee RT 3V Small knee joint effusion. Mild degenerative changes without acute bony process. Presumed loose [employer] Other XR knee RT 3V body seen anteriorly within the joint space. [employer] Other XR knee RT 3V X R/XR knee RT 3V - NOT FOR ER USE [employer] Other XR knee RT 3V IMPRESSION: [employer] Other XR knee RT 3V MILD DEGENERATIVE CH ANGES WITHOUT ACUTE BONY PROCESS. [employer] Other XR knee RT 3V Impression dictated by: Parrish Layton Jr., D.OEhsan09/09/2022 3:40 PM [employer] Other XR knee RT 3V Dictation Location: [place] [address] [employer] Other XR knee RT 3V Transcribed By: PWS 09/09/22 [facility] [employer] Other XR knee RT 3V Dictated By: Parrish Layton Jr, DO 09/09/22 1539 [employer] Other XR knee RT 3V Signed By: [employer] Other XR knee RT 3V 09/09/22 1540 [employer] Other CBC AUTO DIFFon 09-08-2022 BASO # 0.0 103/ul Normal 0.0-0.1 [facility] Comment on above: Performed By: #### C BC #### [facility] [address] [address] [address] Carrington Chandler Basophils/100 WBC (Bld) 0.4 % Normal 0.2-2.0 [facility] Comment on above: Performed By: #### C BC #### [facility] [address] [place] [address] Dr. Carrington Chandler EO # 0.3 103/ul Normal 0.0-0.7 [facility] Comment on above: Performed By: #### C BC #### [facility] [address] [place] [address] Dr. Carrington Chandler Eosinophils/100 WBC (Bld) 4.9 % Normal 0.9-7.0 [facility] Comment on above: Performed By: #### C BC #### [facility] [address] [place] [address] Dr. Carrington Chandler Erythrocyte distribution width (RBC) [Ratio] 14.0 % Normal 11.0-15.0 [facility] Comment on above: Performed By: #### C BC #### [facility] [address] [place] [address] Dr. Carrington Chandler Hematocrit (Bld) [Volume fraction] 36.9 % Critically low 42.0-54.0 [facility] Comment on above: Performed By: #### C BC #### [facility] [address] [place] [address] Dr. Carrington Chandler Hemoglobin (Bld) [Mass/Vol] 12.2 g/dL Critically low 14.0-18.0 [facility] Comment on above: Performed By: #### C BC #### [facility] [address] [place] [address] Dr. Carrington Chandler IG # 0.01 10e3/ul Normal 0.00-0.03 [facility] Comment on above: Performed By: #### C BC #### [facility] [address] [place] [address] Dr. Carrington Chandler IG % 0.2 % Normal 0.0-0.5 [facility] Comment on above: Performed By: #### C BC #### [facility] [address] [place] [address] Dr. Carrington Chandler LYMPH # 1.7 103/ul Normal 1.2-3.8 [facility] Comment on above: Performed By: #### C BC #### [facility] [address] [place] [address] Dr. Carrington Chandler Lymphocytes/100 WBC (Bld) 30.6 % Normal 20.5-60.0 [facility] Comment on above: Performed By: #### C BC #### [facility] [address] [place] [address] Dr. Carrington Chandler MANUAL DIFF REQ NO Normal [facility] Comment on above: Performed By: #### C BC #### [facility] [address] [place] [address] Dr. Carrington Chandler MCH (RBC) [Entitic mass] 30.3 pg Normal 25.9-34.0 [facility] Comment on above: Performed By: #### C BC #### [facility] [address] [place] [address] Dr. Carrington Chandler MCHC (RBC) [Mass/Vol] 33.1 g/dL Normal 29.9-35.2 [facility] Comment on above: Performed By: #### C BC #### [facility] [address] [place] [address] Dr. Carrington Chandler MCV (RBC) [Entitic vol] 91.6 fL Normal 80.0-94.0 [facility] Comment on above: Performed By: #### C BC #### [facility] [address] [place] [address] Dr. Carrington Chandler MONO # 0.6 103/ul Normal 0.3-0.8 [facility] Comment on above: Performed By: #### C BC #### [facility] [address] [place] [address] Dr. Carrington Chandler Monocytes/100 WBC (Bld) 9.9 % Normal 1.7-12.0 [facility] Comment on above: Performed By: #### C BC #### [facility] [address] [place] [address] Dr. Carrington Chandler NEUT # 3.0 103/ul Normal 1.4-6.5 [facility] Comment on above: Performed By: #### C BC #### [facility] [address] [address] [address] Carrington Chandler Neutrophils/100 WBC (Bld) 54.0 % Normal 43.0-75.0 [facility] Comment on above: Performed By: #### C BC #### [facility] [address] [address] [address] Carrington Chandler Platelet mean volume (Bld) [Entitic vol] 8.9 fL Critically low 9.5-13.5 [facility] Comment on above: Performed By: #### C BC #### [facility] [address] [address] [address] Carrington Chandler PLT 189 103/ul Normal 150-450 [facility] Comment on above: Performed By: #### C BC #### [facility] [address] [place] [address] Dr. Carrington Chandler RBC 4.03 106/ul Critically low 4.70-6.10 [facility] Comment on above: Performed By: #### C BC #### [facility] [address] [place] [address] Dr. Carrington Chandler WBC 5.5 103/ul Normal 4.0-11.0 [facility] Comment on above: Performed By: #### C BC #### [facility] [address] [place] [address] Dr. Carrington Chandler CRPon 09-08-2022 CRP 0.5 mg/dL Normal <=1.0 [facility] Comment on above: Performed By: #### A MY, CMP, LIPA #### [facility] [address] [place] [address] Dr. Carrington Chandler PROF CHEM 8 (BAS METB)on Anion gap [Moles/Vol] 12.7 mmol/L Normal [facility] Comment on above: Performed By: #### A MY, CMP, LIPA #### [facility] [address] [place] [address] Dr. Carrington Chandler Calcium [Mass/Vol] 8.6 mg/dL Normal 8.5-10.1 [facility] Comment on above: Performed By: #### A MY, CMP, LIPA #### [facility] [address] [address] [address] Carrington Chandler Chloride [Moles/Vol] 102 mmol/L Normal 98-107 [facility] Comment on above: Performed By: #### A MY, CMP, LIPA #### [facility] [address] [address] [address] Carrington Chandler CO2 [Moles/Vol] 27.2 mmol/L Normal 21.0-32.0 [facility] Comment on above: Performed By: #### A MY, CMP, LIPA #### [facility] [address] [address] [address] Carrington Chandler Creatinine [Mass/Vol] 1.11 mg/dL Normal 0.70-1.30 [facility] Comment on above: Performed By: #### A MY, CMP, LIPA #### [facility] [address] [address] [address] Carrington Chandler EGFR-AF MAURITANIAN >60 Normal >=60 [facility] Comment on above: Performed By: #### A MY, CMP, LIPA #### [facility] [address] [address] [address] Carrington Chandler EGFR-NON AF MAURITANIAN >60 Normal >=60 [facility] Comment on above: Performed By: #### A MY, CMP, LIPA #### [facility] [address] [address] [address] Carrington Chandler Glucose [Mass/Vol] 132 mg/dL Critically high 74-106 [facility] Comment on above: Performed By: #### A MY, CMP, LIPA #### [facility] [address] [address] [address] Carrington Chandler Potassium [Moles/Vol] 3.9 mmol/L Normal 3.5-5.1 [facility] Comment on above: Performed By: #### A MY, CMP, LIPA #### [facility] [address] [address] [address] Carrington Chandler Sodium [Moles/Vol] 138 mmol/L Normal 136-145 [facility] Comment on above: Performed By: #### A MY, CMP, LIPA #### [facility] [address] [address] [address] Carrington Chandler Urea nitrogen [Mass/Vol] 18.0 mg/dL Normal 7.0-18.0 [facility] Comment on above: Performed By: #### A MY, CMP, LIPA #### [facility] [address] [address] [address] Carrington Chandler Urea nitrogen/Creatinine [Mass ratio] 16.2 mg/mg Normal [facility] Comment on above: Performed By: #### A MY, CMP, LIPA #### [facility] [address] [address] [address] Carrington Chandler US CARR[place] DOP LEG [...] by: CYNTHIA VASQUEZ Date: 2022-09-07 22:52 Normal [facility] HEMOGLOBINon 08-10-2022 Hemoglobin (Bld) [Mass/Vol] 13.3 g/dL Critically low 14.0-18.0 [facility] Comment on above: Performed By: #### B MP #### [facility] [address] [address] [address] Carrington Chandler CBC W MANUAL DIFFon 12-17-20 22 ATYPICAL LYMPH # 0.65 103/ul Normal [facility] Comment on above: Performed By: #### A MY, CMP, LIPA #### [facility] [address] [address] [address] Carrington Chandler ATYPICAL LYMPH % 11 % Normal [facility] Comment on above: Performed By: #### A MY, CMP, LIPA #### [facility] [address] [address] [address] Carrington Chandler BAND # 0.0 103/ul Normal 0.0-0.3 [facility] Comment on above: Performed By: #### A MY, CMP, LIPA #### [facility] [address] [address] [address] Carrington Chandler BAND % 0 % Normal 0-5 [facility] Comment on above: Performed By: #### A MY, CMP, LIPA #### [facility] [address] [address] [address] Carrington Chandler BASOM # 0.00 103/ul Normal 0.00-0.10 [facility] Comment on above: Performed By: #### A MY, CMP, LIPA #### [facility] [address] [address] [address] Carrington Chandler BASOM % 0.0 % Critically low 0.2-2.0 The [facility] Comment on above: Performed By: #### A MY, CMP, LIPA #### [facility] [address] [address] [address] Carrington Chandler BLAST # Normal [facility] Comment on above: Performed By: #### A MY, CMP, LIPA #### [facility] [address] [address] [address] Carrington Chandler BLAST % Normal [facility] Comment on above: Performed By: #### A MY, CMP, LIPA #### [facility] [address] [address] [address] Carrington Chandler CORRECTED WBC Normal 4.0-11.0 [facility] Comment on above: Performed By: #### A MY, CMP, LIPA #### [facility] [address] [address] [address] Carrington Chandler EOS # 0.00 103/ul Normal 0.00-0.70 [facility] Comment on above: Performed By: #### A MY, CMP, LIPA #### [facility] [address] [place] [address] Dr. Carrington Chandler EOS% 0.0 % Critically low 0.9-7.0 The [facility] Comment on above: Performed By: #### A MY, CMP, LIPA #### [facility] [address] [place] [address] Dr. Carrington Chandler HCT 34.7 % Critically low 42.0-54.0 The [facility] Comment on above: Performed By: #### A MY, CMP, LIPA #### [facility] [address] [place] [address] Dr. Carrington Chandler HGB 11.7 g/dl Critically low 14.0-18.0 The [facility] Comment on above: Performed By: #### A MY, CMP, LIPA #### [facility] [address] [place] [address] Dr. Carrington Chandler LYMPHM # 0.12 103/ul Critically low 1.20-3.80 [facility] Comment on above: Performed By: #### A MY, CMP, LIPA #### [facility] [address] [place] [address] Dr. Carrington Chandler LYMPHM% 2.0 % Critically low 20.5-60.0 The [facility] Comment on above: Performed By: #### A MY, CMP, LIPA #### [facility] [address] [place] [address] Dr. Carrington Chandler MCH 29.9 pg Normal 25.9-34.0 [facility] Comment on above: Performed By: #### A MY, CMP, LIPA #### [facility] [address] [place] [address] Dr. Carrington Chandler MCHC 33.7 g/dl Normal 29.9-35.2 [facility] Comment on above: Performed By: #### A MY, CMP, LIPA #### [facility] [address] [address] [address] Carrington Chandler MCV 88.7 fL Normal 80.0-94.0 [facility] Comment on above: Performed By: #### A MY, CMP, LIPA #### [facility] [address] [address] [address] Carrington Chandler METAMYELOCYTE # Normal [facility] Comment on above: Performed By: #### A MY, CMP, LIPA #### [facility] [address] [address] [address] Carrington Chandler METAMYELOCYTE % Normal [facility] Comment on above: Performed By: #### A MY, CMP, LIPA #### [facility] [address] [place] [address] Dr. Carrington Chandler MONOM# 0.00 103/ul Critically low 0.30-0.80 [facility] Comment on above: Performed By: #### A MY, CMP, LIPA #### [facility] [address] [place] [address] Dr. Carrington Chandler MONOM% 0.0 % Critically low 1.7-12.0 [facility] Comment on above: Performed By: #### A MY, CMP, LIPA #### [facility] [address] [place] [address] Dr. Carrington Chandler MPV 9.4 fL Critically low 9.5-13.5 The [facility] Comment on above: Performed By: #### A MY, CMP, LIPA #### [facility] [address] [place] [address] Dr. Carrington Chandler MYELOCYTE # Normal [facility] Comment on above: Performed By: #### A MY, CMP, LIPA #### [facility] [address] [place] [address] Dr. Carrington Chandler MYELOCYTE % Normal [facility] Comment on above: Performed By: #### A MY, CMP, LIPA #### [facility] [address] [place] [address] Dr. Carrington Chandler NRBC Normal [facility] Comment on above: Performed By: #### A MY, CMP, LIPA #### [facility] [address] [place] [address] Dr. Carrington Chandler PLT 160 103/ul Normal 150-450 [facility] Comment on above: Performed By: #### A MY, CMP, LIPA #### [facility] [address] [address] [address] Carrington Chandler RBC 3.91 106/ul Critically low 4.70-6.10 [facility] Comment on above: Performed By: #### A MY, CMP, LIPA #### [facility] [address] [place] [address] Dr. Carrington Chandler RDW 12.4 % Normal 11.0-15.0 [facility] Comment on above: Performed By: #### A MY, CMP, LIPA #### [facility] [address] [place] [address] Dr. Carrington Chandler SEG # 5.13 103/ul Normal 1.40-6.50 [facility] Comment on above: Performed By: #### A MY, CMP, LIPA #### [facility] [address] [place] [address] Dr. Carrington Chandler SEG % 87.0 % Critically high 43.0-75.0 [facility] Comment on above: Performed By: #### A MY, CMP, LIPA #### [facility] [address] [place] [address] Dr. Carrington Chandler WBC 5.9 103/ul Normal 4.0-11.0 [facility] Comment on above: Performed By: #### A MY, CMP, LIPA #### [facility] [address] [place] [address] Dr. Carrington Chandler PROF 14(COMP METB)on 022 Albumin [Mass/Vol] 3.0 g/dL Critically low 3.4-5.0 [facility] Comment on above: Performed By: #### C MP #### [facility] [address] [place] [address] Dr. Carrington Chandler Albumin/Globulin [Mass ratio] 0.9 {ratio} Normal [facility] Comment on above: Performed By: #### C MP #### [facility] [address] [place] [address] Dr. Carrington Chandler ALP [Catalytic activity/Vol] 56 U/L Normal 46-116 [facility] Comment on above: Performed By: #### C MP #### [facility] [address] [place] [address] Dr. Carrington Chandler ALT [Catalytic activity/Vol] 21 U/L Normal 16-63 [facility] Comment on above: Performed By: #### C MP #### [facility] [address] [place] [address] Dr. Carrington Chandler Anion gap [Moles/Vol] 12.9 mmol/L Normal [facility] Comment on above: Performed By: #### C MP #### [facility] [address] [place] [address] Dr. Carrington Chandler AST [Catalytic activity/Vol] 15 U/L Normal 15-37 [facility] Comment on above: Performed By: #### C MP #### [facility] [address] [place] [address] Dr. Carrington Chandler Bilirubin [Mass/Vol] 0.2 mg/dL Normal 0.2-1.0 [facility] Comment on above: Performed By: #### C MP #### [facility] [address] [place] [address] Dr. Carrington Chandler Calcium [Mass/Vol] 8.1 mg/dL Critically low 8.5-10.1 [facility] Comment on above: Performed By: #### C MP #### [facility] [address] [place] [address] Dr. Carrington Chandler Chloride [Moles/Vol] 104 mmol/L Normal 98-107 [facility] Comment on above: Performed By: #### C MP #### [facility] [address] [place] [address] Dr. Carrington Chandler CO2 [Moles/Vol] 24.6 mmol/L Normal 21.0-32.0 [facility] Comment on above: Performed By: #### C MP #### [facility] [address] [address] [address] Carrington Chandler Creatinine [Mass/Vol] 0.88 mg/dL Normal 0.70-1.30 [facility] Comment on above: Performed By: #### C MP #### [facility] [address] [address] [address] Carrington Chandler EGFR-AF MAURITANIAN >60 Normal >=60 [facility] Comment on above: Performed By: #### C MP #### [facility] [address] [address] [address] Carrington Chandler EGFR-NON AF MAURITANIAN >60 Normal >=60 [facility] Comment on above: Performed By: #### C MP #### [facility] [address] [place] [address] Dr. Carrington Chandler Globulin (S) [Mass/Vol] 3.3 g/dL Normal [facility] Comment on above: Performed By: #### C MP #### [facility] [address] [address] [address] Carrington Chandler Glucose [Mass/Vol] 174 mg/dL Critically high 74-106 [facility] Comment on above: Performed By: #### C MP #### [facility] [address] [place] [address] Dr. Carrington Chandler Potassium [Moles/Vol] 3.5 mmol/L Normal 3.5-5.1 [facility] Comment on above: Performed By: #### C MP #### [facility] [address] [place] [address] Dr. Carrington Chandler Protein [Mass/Vol] 6.3 g/dL Critically low 6.4-8.2 [facility] Comment on above: Performed By: #### C MP #### [facility] [address] [address] [address] Carrington Chandler Sodium [Moles/Vol] 138 mmol/L Normal 136-145 [facility] Comment on above: Performed By: #### C MP #### [facility] [address] [place] [address] Dr. Carrington Chandler Urea nitrogen [Mass/Vol] 17.0 mg/dL Normal 7.0-18.0 [facility] Comment on above: Performed By: #### C MP #### [facility] [address] [place] [address] Dr. Carrington Chandler Urea nitrogen/Creatinine [Mass ratio] 19.3 mg/mg Normal [facility] Comment on above: Performed By: #### C MP #### [facility] [address] [place] [address] Dr. Carrington Chandler CBC AUTO DIFFon 07-10-2022 BASO # 0.0 103/ul Normal 0.0-0.1 [facility] Comment on above: Performed By: #### B MP #### [facility] [address] [place] [address] Dr. Carrington Chandler Basophils/100 WBC (Bld) 0.2 % Normal 0.2-2.0 [facility] Comment on above: Performed By: #### B MP #### [facility] [address] [place] [address] Dr. Carrington Chandler EO # 0.1 103/ul Normal 0.0-0.7 [facility] Comment on above: Performed By: #### B MP #### [facility] [address] [place] [address] Dr. Carrington Chandler Eosinophils/100 WBC (Bld) 2.3 % Normal 0.9-7.0 [facility] Comment on above: Performed By: #### B MP #### [facility] [address] [place] [address] Dr. Carrington Chandler Erythrocyte distribution width (RBC) [Ratio] 12.5 % Normal 11.0-15.0 [facility] Comment on above: Performed By: #### B MP #### [facility] [address] [place] [address] Dr. Carrington Chandler Hematocrit (Bld) [Volume fraction] 36.8 % Critically low 42.0-54.0 [facility] Comment on above: Performed By: #### B MP #### [facility] [address] [place] [address] Dr. Carrington Chandler Hemoglobin (Bld) [Mass/Vol] 12.3 g/dL Critically low 14.0-18.0 [facility] Comment on above: Performed By: #### B MP #### [facility] [address] [place] [address] Dr. Carrington Chandler IG # 0.01 10e3/ul Normal 0.00-0.03 [facility] Comment on above: Performed By: #### B MP #### [facility] [address] [place] [address] Dr. Carrington Chandler IG % 0.2 % Normal 0.0-0.5 [facility] Comment on above: Performed By: #### B MP #### [facility] [address] [place] [address] Dr. Carrington Chandler LYMPH # 1.5 103/ul Normal 1.2-3.8 [facility] Comment on above: Performed By: #### B MP #### [facility] [address] [place] [address] Dr. Carrington Chandler Lymphocytes/100 WBC (Bld) 34.7 % Normal 20.5-60.0 [facility] Comment on above: Performed By: #### B MP #### [facility] [address] [place] [address] Dr. Carrington Chandler MANUAL DIFF REQ NO Normal [facility] Comment on above: Performed By: #### B MP #### [facility] [address] [place] [address] Dr. Carrington Chandler MCH (RBC) [Entitic mass] 29.8 pg Normal 25.9-34.0 [facility] Comment on above: Performed By: #### B MP #### [facility] [address] [place] [address] Dr. Carrington Chandler MCHC (RBC) [Mass/Vol] 33.4 g/dL Normal 29.9-35.2 [facility] Comment on above: Performed By: #### B MP #### [facility] [address] [address] [address] Carrington Chandler MCV (RBC) [Entitic vol] 89.1 fL Normal 80.0-94.0 [facility] Comment on above: Performed By: #### B MP #### [facility] [address] [address] [address] Carrington Chandler MONO # 0.5 103/ul Normal 0.3-0.8 [facility] Comment on above: Performed By: #### B MP #### [facility] [address] [address] [address] Carrington Chandler Monocytes/100 WBC (Bld) 11.0 % Normal 1.7-12.0 [facility] Comment on above: Performed By: #### B MP #### [facility] [address] [address] [address] Carrington Chandler NEUT # 2.2 103/ul Normal 1.4-6.5 [facility] Comment on above: Performed By: #### B MP #### [facility] [address] [address] [address] Carrington Chandler Neutrophils/100 WBC (Bld) 51.6 % Normal 43.0-75.0 [facility] Comment on above: Performed By: #### B MP #### [facility] [address] [address] [address] Carrington Chandler Platelet mean volume (Bld) [Entitic vol] 9.0 fL Critically low 9.5-13.5 [facility] Comment on above: Performed By: #### B MP #### [facility] [address] [place] [address] Dr. Carrington Chandler PLT 147 103/ul Critically low 150-450 [facility] Comment on above: Performed By: #### B MP #### [facility] [address] [address] [address] Carrington Chandler RBC 4.13 106/ul Critically low 4.70-6.10 [facility] Comment on above: Performed By: #### B MP #### [facility] [address] [address] [address] Carrington Chandler WBC 4.4 103/ul Normal 4.0-11.0 [facility] Comment on above: Performed By: #### B MP #### [facility] [address] [place] [address] Dr. Carrington Chandler CULTURE SPUTUMon 07-10-2022 CULTURE SPUTUM Culture Observations : NORMAL RESPIRATORY SANDY. Normal [facility] Comment on above: Performed By: #### C MP #### [facility] [address] [place] [address] Dr. Carrington Chandler MAGNESIUMon 07-10-2022 Magnesium [Mass/Vol] 2.0 mg/dL Normal 1.8-2.4 [facility] Comment on above: Performed By: #### C MP #### [facility] [address] [place] [address] Dr. Carrington Chandler PROF 14(COMP METB)on 022 Albumin [Mass/Vol] 2.8 g/dL Critically low 3.4-5.0 [facility] Comment on above: Performed By: #### B MP #### [facility] [address] [place] [address] Dr. Carrington Chandler Albumin/Globulin [Mass ratio] 0.8 {ratio} Normal [facility] Comment on above: Performed By: #### B MP #### [facility] [address] [place] [address] Dr. Carrington Chandler ALP [Catalytic activity/Vol] 55 U/L Normal 46-116 [facility] Comment on above: Performed By: #### B MP #### [facility] [address] [place] [address] Dr. Carrington Chandler ALT [Catalytic activity/Vol] 22 U/L Normal 16-63 [facility] Comment on above: Performed By: #### B MP #### [facility] [address] [place] [address] Dr. Carrington Chandler Anion gap [Moles/Vol] 10.3 mmol/L Normal [facility] Comment on above: Performed By: #### B MP #### [facility] [address] [place] [address] Dr. Carrington Chandler AST [Catalytic activity/Vol] 22 U/L Normal 15-37 [facility] Comment on above: Performed By: #### B MP #### [facility] [address] [address] [address] Carrington Chandler Bilirubin [Mass/Vol] 0.2 mg/dL Normal 0.2-1.0 [facility] Comment on above: Performed By: #### B MP #### [facility] [address] [address] [address] Carrington Chandler Calcium [Mass/Vol] 8.0 mg/dL Critically low 8.5-10.1 [facility] Comment on above: Performed By: #### B MP #### [facility] [address] [place] [address] Dr. Carrington Chandler Chloride [Moles/Vol] 105 mmol/L Normal 98-107 [facility] Comment on above: Performed By: #### B MP #### [facility] [address] [address] [address] Carrington Chandler CO2 [Moles/Vol] 28.1 mmol/L Normal 21.0-32.0 [facility] Comment on above: Performed By: #### B MP #### [facility] [address] [place] [address] Dr. Carrington Chandler Creatinine [Mass/Vol] 0.89 mg/dL Normal 0.70-1.30 [facility] Comment on above: Performed By: #### B MP #### [facility] [address] [address] [address] Carrington Chandler EGFR-AF MAURITANIAN >60 Normal >=60 [facility] Comment on above: Performed By: #### B MP #### [facility] [address] [address] [address] Carrington Chandler EGFR-NON AF MAURITANIAN >60 Normal >=60 [facility] Comment on above: Performed By: #### B MP #### [facility] [address] [address] [address] Carrington Chandler Globulin (S) [Mass/Vol] 3.7 g/dL Normal [facility] Comment on above: Performed By: #### B MP #### [facility] [address] [address] [address] Carrington Chandler Glucose [Mass/Vol] 124 mg/dL Critically high 74-106 [facility] Comment on above: Performed By: #### B MP #### [facility] [address] [address] [address] Carrington Chandler Potassium [Moles/Vol] 3.4 mmol/L Critically low 3.5-5.1 [facility] Comment on above: Performed By: #### B MP #### [facility] [address] [address] [address] Carrington Chandler Protein [Mass/Vol] 6.5 g/dL Normal 6.4-8.2 [facility] Comment on above: Performed By: #### B MP #### [facility] [address] [address] [address] Carrington Chandler Sodium [Moles/Vol] 140 mmol/L Normal 136-145 [facility] Comment on above: Performed By: #### B MP #### [facility] [address] [address] [address] Carrington Chandler Urea nitrogen [Mass/Vol] 15.0 mg/dL Normal 7.0-18.0 [facility] Comment on above: Performed By: #### B MP #### [facility] [address] [address] [address] Carrington Chandler Urea nitrogen/Creatinine [Mass ratio] 16.9 mg/mg Normal [facility] Comment on above: Performed By: #### B MP #### [facility] [address] [address] [address] Carrington Chandler CBC AUTO DIFFon 07-09-2022 BASO # 0.0 103/ul Normal 0.0-0.1 [facility] Comment on above: Performed By: #### A MY, CMP, LIPA #### [facility] [address] [address] [address] Carrington Chandler Basophils/100 WBC (Bld) 0.2 % Normal 0.2-2.0 [facility] Comment on above: Performed By: #### A MY, CMP, LIPA #### [facility] [address] [place] [address] Dr. Carrington Chandler EO # 0.1 103/ul Normal 0.0-0.7 [facility] Comment on above: Performed By: #### A MY, CMP, LIPA #### [facility] [address] [place] [address] Dr. Carrington Chandler Eosinophils/100 WBC (Bld) 1.9 % Normal 0.9-7.0 [facility] Comment on above: Performed By: #### A MY, CMP, LIPA #### [facility] [address] [place] [address] Dr. Carrington Chandler Erythrocyte distribution width (RBC) [Ratio] 12.6 % Normal 11.0-15.0 [facility] Comment on above: Performed By: #### A MY, CMP, LIPA #### [facility] [address] [place] [address] Dr. Carrington Chandler Hematocrit (Bld) [Volume fraction] 38.8 % Critically low 42.0-54.0 [facility] Comment on above: Performed By: #### A MY, CMP, LIPA #### [facility] [address] [place] [address] Dr. Carrington Chandler Hemoglobin (Bld) [Mass/Vol] 12.9 g/dL Critically low 14.0-18.0 [facility] Comment on above: Performed By: #### A MY, CMP, LIPA #### [facility] [address] [place] [address] Dr. Carrington Chandler IG # 0.01 10e3/ul Normal 0.00-0.03 [facility] Comment on above: Performed By: #### A MY, CMP, LIPA #### [facility] [address] [place] [address] Dr. Carrington Chandler IG % 0.2 % Normal 0.0-0.5 [facility] Comment on above: Performed By: #### A MY, CMP, LIPA #### [facility] [address] [address] [address] Carrington Chandler LYMPH # 1.7 103/ul Normal 1.2-3.8 [facility] Comment on above: Performed By: #### A MY, CMP, LIPA #### [facility] [address] [place] [address] Dr. Carrington Chandler Lymphocytes/100 WBC (Bld) 34.7 % Normal 20.5-60.0 [facility] Comment on above: Performed By: #### A MY, CMP, LIPA #### [facility] [address] [place] [address] Dr. Carrington Chandler MANUAL DIFF REQ NO Normal [facility] Comment on above: Performed By: #### A MY, CMP, LIPA #### [facility] [address] [place] [address] Dr. Carrington Chandler MCH (RBC) [Entitic mass] 29.9 pg Normal 25.9-34.0 [facility] Comment on above: Performed By: #### A MY, CMP, LIPA #### [facility] [address] [place] [address] Dr. Carrington Chandler MCHC (RBC) [Mass/Vol] 33.2 g/dL Normal 29.9-35.2 [facility] Comment on above: Performed By: #### A MY, CMP, LIPA #### [facility] [address] [place] [address] Dr. Carrington Chandler MCV (RBC) [Entitic vol] 90.0 fL Normal 80.0-94.0 [facility] Comment on above: Performed By: #### A MY, CMP, LIPA #### [facility] [address] [place] [address] Dr. Carrington Chandler MONO # 0.5 103/ul Normal 0.3-0.8 [facility] Comment on above: Performed By: #### A MY, CMP, LIPA #### [facility] [address] [place] [address] Dr. Carrington Chandler Monocytes/100 WBC (Bld) 10.4 % Normal 1.7-12.0 [facility] Comment on above: Performed By: #### A MY, CMP, LIPA #### [facility] [address] [place] [address] Dr. Carrington Chandler NEUT # 2.5 103/ul Normal 1.4-6.5 [facility] Comment on above: Performed By: #### A MY, CMP, LIPA #### [facility] [address] [place] [address] Dr. Carrington Chandler Neutrophils/100 WBC (Bld) 52.6 % Normal 43.0-75.0 [facility] Comment on above: Performed By: #### A MY, CMP, LIPA #### [facility] [address] [place] [address] Dr. Carrington Chandler Platelet mean volume (Bld) [Entitic vol] 9.0 fL Critically low 9.5-13.5 [facility] Comment on above: Performed By: #### A MY, CMP, LIPA #### [facility] [address] [place] [address] Dr. Carrington Chandler PLT 155 103/ul Normal 150-450 [facility] Comment on above: Performed By: #### A MY, CMP, LIPA #### [facility] [address] [place] [address] Dr. Carrington Chandler RBC 4.31 106/ul Critically low 4.70-6.10 [facility] Comment on above: Performed By: #### A MY, CMP, LIPA #### [facility] [address] [place] [address] Dr. Carrington Chandler WBC 4.8 103/ul Normal 4.0-11.0 [facility] Comment on above: Performed By: #### A MY, CMP, LIPA #### [facility] [address] [place] [address] Dr. Carrington Chandler [facility]19 [facility]25 SARS-CoV-2 (COVID-19) RNA CHARLIE+probe Ql (Unsp spec) Not detected Normal NOT DETECTED [facility] Comment on above: Result Comment: When [...] for this test is supported by the [employer] of Health and Human Service's declaration that [...] used). Performed By: #### C MP #### [facility] [address] [place] [address] Dr. Carrington Chandler ER URINE PROFILEon 2 Bilirubin Ql (U) Negative Normal NEGATIVE [facility] Comment on above: Performed By: #### C MP #### [facility] [address] [place] [address] Dr. Carrington Chandler Clarity (U) CLEAR Normal CLEAR [facility] Comment on above: Performed By: #### C MP #### [facility] [address] [place] [address] Dr. Carrington Chandler Color (U) LT. YELLOW Normal YELLOW [facility] Comment on above: Performed By: #### C MP #### [facility] [address] [place] [address] Dr. Carrington Chandler ERUAHD A micrscopic examina tion will be performed if indicated. Normal [facility] Comment on above: Performed By: #### C MP #### [facility] [address] [place] [address] Dr. Carrington Chandler Glucose Ql (U) Negative Normal NEGATIVE The [facility] Comment on above: Performed By: #### C MP #### [facility] [address] [place] [address] Dr. Carrington Chandler Hemoglobin Ql (U) Negative Normal NEGATIVE [facility] Comment on above: Performed By: #### C MP #### [facility] [address] [place] [address] Dr. Carrington Chandler Ketones Ql (U) Negative Normal NEGATIVE [facility] Comment on above: Performed By: #### C MP #### [facility] [address] [place] [address] Dr. Carrington Chandler LEUKOCYTES Negative Normal NEGATIVE [facility] Comment on above: Performed By: #### C MP #### [facility] [address] [place] [address] Dr. Carrington Chandler Nitrite Ql (U) Negative Normal NEGATIVE [facility] Comment on above: Performed By: #### C MP #### [facility] [address] [place] [address] Dr. Carrington Chandler pH (U) 6.0 [pH] Normal 5-9 [facility] Comment on above: Performed By: #### C MP #### [facility] [address] [place] [address] Dr. Carrington Chandler SPEC GRAVITY 1.010 Normal 1.005-<=1. 025 [facility] Comment on above: Performed By: #### C MP #### [facility] [address] [place] [address] Dr. Carrington Chandler UA PROTEIN Negative Normal NEGATIVE/ TRACE [facility] Comment on above: Performed By: #### C MP #### [facility] [address] [place] [address] Dr. Carrington Chandler UR MICRO IND NOT INDICATED Normal [facility] Comment on above: Performed By: #### C MP #### [facility] [address] [place] [address] Dr. Carrington Chandler Urobilinogen Qn (U) 0.2 {Lars'U}/dL Normal 0.2 - 1. 0 [facility] Comment on above: Performed By: #### C MP #### [facility] [address] [place] [address] Dr. Carrington Chandler PROF CHEM 8 (BAS METB)on Anion gap [Moles/Vol] 6.6 mmol/L Normal [facility] Comment on above: Performed By: #### B MP #### [facility] [address] [address] [address] Carrington Chandler Calcium [Mass/Vol] 8.2 mg/dL Critically low 8.5-10.1 [facility] Comment on above: Performed By: #### B MP #### [facility] [address] [address] [address] Carrington Chandler Chloride [Moles/Vol] 102 mmol/L Normal 98-107 [facility] Comment on above: Performed By: #### B MP #### [facility] [address] [address] [address] Carrington Chandler CO2 [Moles/Vol] 31.2 mmol/L Normal 21.0-32.0 [facility] Comment on above: Performed By: #### B MP #### [facility] [address] [address] [address] Carrington Chandler Creatinine [Mass/Vol] 0.90 mg/dL Normal 0.70-1.30 [facility] Comment on above: Performed By: #### B MP #### [facility] [facility] [address] [place] [address] Dr. Carrington Chandler EGFR-AF MAURITANIAN >60 Normal >=60 [facility] Comment on above: Performed By: #### B MP #### [facility] [address] [address] [address] Carrington Chandler EGFR-NON AF MAURITANIAN >60 Normal >=60 [facility] Comment on above: Performed By: #### B MP #### [facility] [address] [address] [address] Carrington Chandler Glucose [Mass/Vol] 100 mg/dL Normal 74-[address] [facility] Comment on above: Performed By: #### B MP #### [facility] [address] [address] [address] Carrington Chandler Potassium [Moles/Vol] 3.8 mmol/L Normal 3.5-5.1 [facility] Comment on above: Performed By: #### B MP #### [facility] [address] [address] [address] Carrington Chandler Sodium [Moles/Vol] 136 mmol/L Normal 136-145 [facility] Comment on above: Performed By: #### B MP #### [facility] [address] [place], [place] [address] Dr. Carrington Chandler Urea nitrogen [Mass/Vol] 16.0 mg/dL Normal 7.0-18.0 [facility] Comment on above: Performed By: #### B MP #### [facility] [id number] Carrington Chandler Urea nitrogen/Creatinine [Mass ratio] 17.8 mg/mg Normal [facility] Comment on above: Performed By: #### B MP #### [facility] [id number] Carrington Chandler XR CHEST 1 Von [...] TEE LEWIS Date: 2022-07-09 20:51 Normal [facility] AMYLASEon 07-08-2022 Amylase [Catalytic activity/Vol] 40 U/L Normal 25-115 [facility] Comment on above: Performed By: #### A MY, CMP, LIPA #### [facility] [address] [place], [place] [address] Dr. Carrington Chandler CBC AUTO DIFFon 07-08-2022 BASO # 0.0 103/ul Normal 0.0-0.1 [facility] Comment on above: Performed By: #### C BC #### [facility] [id number] Carrington Chandler Basophils/100 WBC (Bld) 0.3 % Normal 0.2-2.0 [facility] Comment on above: Performed By: #### C BC #### [facility] [address] [place] [address] Dr. Carrington Chandler EO # 0.1 103/ul Normal 0.0-0.7 [facility] Comment on above: Performed By: #### C BC #### [facility] [address] [place] [address] Dr. Carrington Chandler Eosinophils/100 WBC (Bld) 1.2 % Normal 0.9-7.0 [facility] Comment on above: Performed By: #### C BC #### [facility] [address] [place] [address] Dr. Carrington Chandler Erythrocyte distribution width (RBC) [Ratio] 12.9 % Normal 11.0-15.0 [facility] Comment on above: Performed By: #### C BC #### [facility] [address] [place] [address] Dr. Carrington Chandler Hematocrit (Bld) [Volume fraction] 43.2 % Normal 42.0-54.0 [facility] Comment on above: Performed By: #### C BC #### [facility] [address] [place] [address] Dr. Carrington Chandler Hemoglobin (Bld) [Mass/Vol] 14.4 g/dL Normal 14.0-18.0 [facility] Comment on above: Performed By: #### C BC #### [facility] [address] [place] [address] Dr. Carrington Chandler IG # 0.02 10e3/ul Normal 0.00-0.03 [facility] Comment on above: Performed By: #### C BC #### [facility] [address] [place] [address] Dr. Carrington Chandler IG % 0.3 % Normal 0.0-0.5 [facility] Comment on above: Performed By: #### C BC #### [facility] [address] [place] [address] Dr. Carrington Chandler LYMPH # 1.6 103/ul Normal 1.2-3.8 [facility] Comment on above: Performed By: #### C BC #### [facility] [address] [place] [address] Dr. Carrington Chandler Lymphocytes/100 WBC (Bld) 24.0 % Normal 20.5-60.0 [facility] Comment on above: Performed By: #### C BC #### [facility] [address] [place] [address] Dr. Carrington Chandler MANUAL DIFF REQ NO Normal [facility] Comment on above: Performed By: #### C BC #### [facility] [address] [place] [address] Dr. Carrington Chandler MCH (RBC) [Entitic mass] 30.2 pg Normal 25.9-34.0 [facility] Comment on above: Performed By: #### C BC #### [facility] [address] [place] [address] Dr. Carrington Chandler MCHC (RBC) [Mass/Vol] 33.3 g/dL Normal 29.9-35.2 [facility] Comment on above: Performed By: #### C BC #### [facility] [address] [place] [address] Dr. Carrington Chandler MCV (RBC) [Entitic vol] 90.6 fL Normal 80.0-94.0 [facility] Comment on above: Performed By: #### C BC #### [facility] [address] [place] [address] Dr. Carrington Chandler MONO # 0.6 103/ul Normal 0.3-0.8 [facility] Comment on above: Performed By: #### C BC #### [facility] [address] [place] [address] Dr. Carrington Chandler Monocytes/100 WBC (Bld) 9.4 % Normal 1.7-12.0 [facility] Comment on above: Performed By: #### C BC #### [facility] [address] [place] [address] Dr. Carrington Chandler NEUT # 4.4 103/ul Normal 1.4-6.5 [facility] Comment on above: Performed By: #### C BC #### [facility] [address] [place] [address] Dr. Carrington Chandler Neutrophils/100 WBC (Bld) 64.8 % Normal 43.0-75.0 [facility] Comment on above: Performed By: #### C BC #### [facility] [address] [place] [address] Dr. Carrington Chandler Platelet mean volume (Bld) [Entitic vol] 9.5 fL Normal 9.5-13.5 [facility] Comment on above: Performed By: #### C BC #### [facility] [address] [place] [address] Dr. Carrington Chandler PLT 174 103/ul Normal 150-450 [facility] Comment on above: Performed By: #### C BC #### [facility] [address] [place] [address] Dr. Carrington Chandler RBC 4.77 106/ul Normal 4.70-6.10 [facility] Comment on above: Performed By: #### C BC #### [facility] [address] [place] [address] Dr. Carrington Chandler WBC 6.7 103/ul Normal 4.0-11.0 [facility] Comment on above: Performed By: #### C BC #### [facility] [address] [place] [address] Dr. Carrington Chandler [facility] SARS-CoV-2 (COVID-19) RNA CHARLIE+probe Ql (Unsp spec) Not detected Normal NOT DETECTED [facility] Comment on above: Result Comment: When [...] for this test is supported by the [place] of Health and Human Service's declaration that [...] used). Performed By: #### B MP #### [facility] [address] [place] [address] Dr. Carrington Chandler INFLUENZA A AND B AGon 07-08 INFLUANEGH SEE BELOW Normal [facility] Comment on above: Result Comment: Nega tive for Flu A protein angiten. Infection due to Flu A cannot be ruled out. Flu A angiten in the sample may be below the detection limit of the test. Performed By: #### B MP #### [facility] [address] [place] [address] Dr. Carrington Chandler INFLUBNEGH SEE BELOW Normal [facility] Comment on above: Result Comment: Nega tive for Flu B protein antigen. Infection due to Flu B cannot be ruled out. Flu B antigen in the sample may be below the detection limit of the test. Performed By: #### B MP #### [facility] [address] [place] [address] Dr. Carrington Chandler INFLUENZA A AG Negative Normal NEGATIVE SEE COMMENT [facility] Comment on above: Performed By: #### B MP #### [facility] [address] [place] [address] Dr. Carrington Chandler INFLUENZA B AG Negative Normal NEGATIVE SEE COMMENT [facility] Comment on above: Performed By: #### B MP #### [facility] [address] [place] [address] Dr. Carrington Chandler INTERNAL CONTROLS Within Normal Limits Normal Wi thin Normal Limits [facility] Comment on above: Performed By: #### B MP #### [facility] [address] [place] [address] Dr. Carrington Chandler LIPASEon 07-08-2022 Lipase [Catalytic activity/Vol] 195.0 U/L Normal 73.0-393.0 [facility] Comment on above: Performed By: #### A MY, CMP, LIPA #### [facility] [address] [place] [address] Dr. Carrington Chandler PROF 14(COMP METB)on 022 Albumin [Mass/Vol] 3.4 g/dL Normal 3.4-5.0 [facility] Comment on above: Performed By: #### A MY, CMP, LIPA #### [facility] [address] [address] [address] Carrington Chandler Albumin/Globulin [Mass ratio] 0.8 {ratio} Normal [facility] Comment on above: Performed By: #### A MY, CMP, LIPA #### [facility] [address] [place] [address] Dr. Carrington Chandler ALP [Catalytic activity/Vol] 61 U/L Normal 46-116 [facility] Comment on above: Performed By: #### A MY, CMP, LIPA #### [facility] [address] [place] [address] Dr. Carrington Chandler ALT [Catalytic activity/Vol] 26 U/L Normal 16-63 [facility] Comment on above: Performed By: #### A MY, CMP, LIPA #### [facility] [address] [place] [address] Dr. Carrington Chandler Anion gap [Moles/Vol] 11.0 mmol/L Normal [facility] Comment on above: Performed By: #### A MY, CMP, LIPA #### [facility] [address] [place] [address] Dr. Carrington Chandler AST [Catalytic activity/Vol] 30 U/L Normal 15-37 [facility] Comment on above: Performed By: #### A MY, CMP, LIPA #### [facility] [address] [place] [address] Dr. Carrington Chandler Bilirubin [Mass/Vol] 0.3 mg/dL Normal 0.2-1.0 [facility] Comment on above: Performed By: #### A MY, CMP, LIPA #### [facility] [address] [place] [address] Dr. Carrington Chandler Calcium [Mass/Vol] 8.4 mg/dL Critically low 8.5-10.1 [facility] Comment on above: Performed By: #### A MY, CMP, LIPA #### [facility] [address] [address] [address] Carrington Chandler Chloride [Moles/Vol] 102 mmol/L Normal 98-107 [facility] Comment on above: Performed By: #### A MY, CMP, LIPA #### [facility] [address] [address] [address] Carrington Chandler CO2 [Moles/Vol] 28.1 mmol/L Normal 21.0-32.0 [facility] Comment on above: Performed By: #### A MY, CMP, LIPA #### [facility] [address] [place] [address] Dr. Carrington Chandler Creatinine [Mass/Vol] 0.99 mg/dL Normal 0.70-1.30 [facility] Comment on above: Performed By: #### A MY, CMP, LIPA #### [facility] [address] [place] [address] Dr. Carrington Chandler EGFR-AF MAURITANIAN >60 Normal >=60 [facility] Comment on above: Performed By: #### A MY, CMP, LIPA #### [facility] [address] [place] [address] Dr. Carrington Chandler EGFR-NON AF MAURITANIAN >60 Normal >=60 [facility] Comment on above: Performed By: #### A MY, CMP, LIPA #### [facility] [address] [place] [address] Dr. Carrington Chandler Globulin (S) [Mass/Vol] 4.3 g/dL Normal [facility] Comment on above: Performed By: #### A MY, CMP, LIPA #### [facility] [address] [place] [address] Dr. Carrington Chandler Glucose [Mass/Vol] 107 mg/dL Critically high 74-106 [facility] Comment on above: Performed By: #### A MY, CMP, LIPA #### [facility] [address] [address] [address] Carrington Chandler Potassium [Moles/Vol] 4.1 mmol/L Normal 3.5-5.1 [facility] Comment on above: Performed By: #### A MY, CMP, LIPA #### [facility] [address] [place] [address] Dr. Carrington Chandler Protein [Mass/Vol] 7.7 g/dL Normal 6.4-8.[address] [facility] Comment on above: Performed By: #### A MY, CMP, LIPA #### [facility] [address] [place] [address] Dr. Carrington Chandler Sodium [Moles/Vol] 137 mmol/L Normal 136-[address] [facility] Comment on above: Performed By: #### A MY, CMP, LIPA #### [facility] [address] [place] [address] Dr. Carrington Chandler Urea nitrogen [Mass/Vol] 23.0 mg/dL Critically high 7.0-18.0 [facility] Comment on above: Performed By: #### A MY, CMP, LIPA #### [facility] [address] [place] [address] Dr. Carrington Chandler Urea nitrogen/Creatinine [Mass ratio] 23.2 mg/mg Normal [facility] Comment on above: Performed By: #### A MY, CMP, LIPA #### [facility] [address] [place] [address] Dr. Carrington Chandler CBC AUTO DIFFon 07-03-2022 BASO # 0.0 103/ul Normal 0.0-0.1 [facility] Comment on above: Performed By: #### C MP #### [facility] [address] [place] [address] Dr. Carrington Chandler Basophils/100 WBC (Bld) 0.5 % Normal 0.2-2.0 [facility] Comment on above: Performed By: #### C MP #### [facility] [address] [place] [address] Dr. Carrington Chandler EO # 0.3 103/ul Normal 0.0-0.7 [facility] Comment on above: Performed By: #### C MP #### [facility] [address] [place] [address] Dr. Carrington Chandler Eosinophils/100 WBC (Bld) 4.7 % Normal 0.9-7.0 [facility] Comment on above: Performed By: #### C MP #### [facility] [address] [place] [address] Dr. Carrington Chandler Erythrocyte distribution width (RBC) [Ratio] 12.7 % Normal 11.0-15.0 [facility] Comment on above: Performed By: #### C MP #### [facility] [address] [place] [address] Dr. Carrington Chandler Hematocrit (Bld) [Volume fraction] 38.8 % Critically low 42.0-54.0 [facility] Comment on above: Performed By: #### C MP #### [facility] [address] [place] [address] Dr. Carrington Chandler Hemoglobin (Bld) [Mass/Vol] 13.2 g/dL Critically low 14.0-18.0 [facility] Comment on above: Performed By: #### C MP #### [facility] [address] [place] [address] Dr. Carrington Chandler IG # 0.01 10e3/ul Normal 0.00-0.03 [facility] Comment on above: Performed By: #### C MP #### [facility] [address] [place] [address] Dr. Carrington Chandler IG % 0.2 % Normal 0.0-0.5 [facility] Comment on above: Performed By: #### C MP #### [facility] [address] [place] [address] Dr. Carrington Chandler LYMPH # 1.4 103/ul Normal 1.2-3.8 [facility] Comment on above: Performed By: #### C MP #### [facility] [address] [place] [address] Dr. Carrington Chandler Lymphocytes/100 WBC (Bld) 25.2 % Normal 20.5-60.0 [facility] Comment on above: Performed By: #### C MP #### [facility] [address] [place] [address] Dr. Carrington Chandler MANUAL DIFF REQ NO Normal [facility] Comment on above: Performed By: #### C MP #### [facility] [address] [place] [address] Dr. Carrington Chandler MCH (RBC) [Entitic mass] 30.3 pg Normal 25.9-34.0 [facility] Comment on above: Performed By: #### C MP #### [facility] [address] [place] [address] Dr. Carrington Chandler MCHC (RBC) [Mass/Vol] 34.0 g/dL Normal 29.9-35.2 [facility] Comment on above: Performed By: #### C MP #### [facility] [address] [place] [address] Dr. Carrington Chandler MCV (RBC) [Entitic vol] 89.2 fL Normal 80.0-94.0 [facility] Comment on above: Performed By: #### C MP #### [facility] [address] [place] [address] Dr. Carrington Chandler MONO # 0.6 103/ul Normal 0.3-0.8 [facility] Comment on above: Performed By: #### C MP #### [facility] [address] [place] [address] Dr. Carrington Chandler Monocytes/100 WBC (Bld) 10.2 % Normal 1.7-12.0 [facility] Comment on above: Performed By: #### C MP #### [facility] [address] [place] [address] Dr. Carrington Chandler NEUT # 3.3 103/ul Normal 1.4-6.5 [facility] Comment on above: Performed By: #### C MP #### [facility] [address] [place] [address] Dr. Carrington Chandler Neutrophils/100 WBC (Bld) 59.2 % Normal 43.0-75.0 [facility] Comment on above: Performed By: #### C MP #### [facility] [address] [address] [address] Carrington Chandler Platelet mean volume (Bld) [Entitic vol] 9.1 fL Critically low 9.5-13.5 [facility] Comment on above: Performed By: #### C MP #### [facility] [address] [address] [address] Carrington Chandler PLT 199 103/ul Normal 150-450 [facility] Comment on above: Performed By: #### C MP #### [facility] [address] [address] [address] Carrington Chandler RBC 4.35 106/ul Critically low 4.70-6.10 [facility] Comment on above: Performed By: #### C MP #### [facility] [address] [address] [address] Carrington Chandler WBC 5.5 103/ul Normal 4.0-11.0 [facility] Comment on above: Performed By: #### C MP #### [facility] [address] [address] [address] Carrington Chandler Covid-19 PCR ([facility])on SARS-CoV-2 (COVID-19) RNA CHARLIE+probe Ql (Unsp spec) Not detected Normal NOT DETECTED [facility] Comment on above: Result Comment: When [...] for this test is supported by the [place] of Health and Human Service's declaration that [...] used). Performed By: #### B MP #### [facility] [address] [place] [address] Dr. Carrington Chandler PROF 14(COMP METB)on 022 Albumin [Mass/Vol] 3.8 g/dL Normal 3.4-5.0 [facility] Comment on above: Performed By: #### C MP #### [facility] [address] [place] [address] Dr. Carrington Chandler Albumin/Globulin [Mass ratio] 1.0 {ratio} Normal [facility] Comment on above: Performed By: #### C MP #### [facility] [address] [place] [address] Dr. Carrington Chandler ALP [Catalytic activity/Vol] 69 U/L Normal 46-116 [facility] Comment on above: Performed By: #### C MP #### [facility] [address] [place] [address] Dr. Carrington Chandler ALT [Catalytic activity/Vol] 18 U/L Normal 16-63 [facility] Comment on above: Performed By: #### C MP #### [facility] [address] [place] [address] Dr. Carrington hCandler Anion gap [Moles/Vol] 13.3 mmol/L Normal [facility] Comment on above: Performed By: #### C MP #### [facility] [address] [place] [address] Dr. Carrington Chandler AST [Catalytic activity/Vol] 19 U/L Normal 15-37 [facility] Comment on above: Performed By: #### C MP #### [facility] [address] [place] [address] Dr. Carrington Chandler Bilirubin [Mass/Vol] 0.3 mg/dL Normal 0.2-1.0 [facility] Comment on above: Performed By: #### C MP #### [facility] [address] [place] [address] Dr. Carrington Chandler Calcium [Mass/Vol] 9.0 mg/dL Normal 8.5-10.1 [facility] Comment on above: Performed By: #### C MP #### [facility] [address] [address] [address] Carrington Chandler Chloride [Moles/Vol] 101 mmol/L Normal 98-107 [facility] Comment on above: Performed By: #### C MP #### [facility] [address] [address] [address] Carrington Chandler CO2 [Moles/Vol] 26.7 mmol/L Normal 21.0-32.0 [facility] Comment on above: Performed By: #### C MP #### [facility] [address] [address] [address] Carrington Chandler Creatinine [Mass/Vol] 1.06 mg/dL Normal 0.70-1.30 [facility] Comment on above: Performed By: #### C MP #### [facility] [address] [address] [address] Carrington Chandler EGFR-AF MAURITANIAN >60 Normal >=60 [facility] Comment on above: Performed By: #### C MP #### [facility] [address] [address] [address] Carrington Chandler EGFR-NON AF MAURITANIAN >60 Normal >=60 [facility] Comment on above: Performed By: #### C MP #### [facility] [address] [address] [address] Carrington Chandler Globulin (S) [Mass/Vol] 3.8 g/dL Normal [facility] Comment on above: Performed By: #### C MP #### [facility] [address] [address] [address] Carrington Chandler Glucose [Mass/Vol] 98 mg/dL Normal 74-[address] [facility] Comment on above: Performed By: #### C MP #### [facility] [address] [address] [address] Carrington Chandler Potassium [Moles/Vol] 4.0 mmol/L Normal 3.5-5.1 [facility] Comment on above: Performed By: #### C MP #### [facility] [address] [address] [address] Carrington Chandler Protein [Mass/Vol] 7.6 g/dL Normal 6.4-8.[address] [facility] Comment on above: Performed By: #### C MP #### [facility] [address] [address] [address] Carrington Chandler Sodium [Moles/Vol] 137 mmol/L Normal 136-[address] [facility] Comment on above: Performed By: #### C MP #### [facility] [address] [address] [address] Carrington Chandler Urea nitrogen [Mass/Vol] 21.0 mg/dL Critically high 7.0-18.0 [facility] Comment on above: Performed By: #### C MP #### [facility] [address] [address] [address] Carrington Chandler Urea nitrogen/Creatinine [Mass ratio] 19.8 mg/mg Normal [facility] Comment on above: Performed By: #### C MP #### [facility] [address] [address] [address] Carrington Chandler XR CHEST 1 Von [...] CYNTHIA VASQUEZ Date: 2022-07-03 21:16 Normal [facility] CBC AUTO DIFFon 02-03-2022 BASO # 0.0 103/ul Normal 0.0-0.1 [facility] Comment on above: Performed By: #### C BC #### [facility] [address] [address] [address] Carrington Chandler Basophils/100 WBC (Bld) 0.3 % Normal 0.2-2.0 [facility] Comment on above: Performed By: #### C BC #### [facility] [address] [address] [address] Carrington Chandler EO # 0.1 103/ul Normal 0.0-0.7 [facility] Comment on above: Performed By: #### C BC #### [facility] [address] [address] [address] Carrington Chandler Eosinophils/100 WBC (Bld) 0.9 % Normal 0.9-7.0 [facility] Comment on above: Performed By: #### C BC #### [facility] [address] [place] [address] Dr. Carrington Chandler Erythrocyte distribution width (RBC) [Ratio] 13.9 % Normal 11.0-15.0 [facility] Comment on above: Performed By: #### C BC #### [facility] [address] [place] [address] Dr. Carrington Chandler Hematocrit (Bld) [Volume fraction] 40.4 % Critically low 42.0-54.0 [facility] Comment on above: Performed By: #### C BC #### [facility] [address] [place] [address] Dr. Carrington Chandler Hemoglobin (Bld) [Mass/Vol] 13.4 g/dL Critically low 14.0-18.0 [facility] Comment on above: Performed By: #### C BC #### [facility] [address] [place] [address] Dr. Carrington Chandler IG # 0.03 10e3/ul Normal 0.00-0.03 [facility] Comment on above: Performed By: #### C BC #### [facility] [address] [place] [address] Dr. Carrington Chandler IG % 0.3 % Normal 0.0-0.5 [facility] Comment on above: Performed By: #### C BC #### [facility] [address] [address] [address] Carrington Chandler LYMPH # 1.5 103/ul Normal 1.2-3.8 [facility] Comment on above: Performed By: #### C BC #### [facility] [address] [place] [address] Dr. Carrington Chandler Lymphocytes/100 WBC (Bld) 12.3 % Critically low 20.5-60.0 [facility] Comment on above: Performed By: #### C BC #### [facility] [address] [place] [address] Dr. Carrington Chandler MANUAL DIFF REQ NO Normal [facility] Comment on above: Performed By: #### C BC #### [facility] [address] [place] [address] Dr. Carrington Chandler MCH (RBC) [Entitic mass] 30.0 pg Normal 25.9-34.0 [facility] Comment on above: Performed By: #### C BC #### [facility] [address] [place] [address] Dr. Carrington Chandler MCHC (RBC) [Mass/Vol] 33.2 g/dL Normal 29.9-35.2 [facility] Comment on above: Performed By: #### C BC #### [facility] [address] [place] [address] Dr. Carrington Chandler MCV (RBC) [Entitic vol] 90.6 fL Normal 80.0-94.0 [facility] Comment on above: Performed By: #### C BC #### [facility] [address] [place] [address] Dr. Carrington Chandler MONO # 1.0 103/ul Critically high 0.3-0.8 [facility] Comment on above: Performed By: #### C BC #### [facility] [address] [place] [address] Dr. Carrington Chandler Monocytes/100 WBC (Bld) 8.5 % Normal 1.7-12.0 [facility] Comment on above: Performed By: #### C BC #### [facility] [address] [place] [address] Dr. Carrington Chandler NEUT # 9.2 103/ul Critically high 1.4-6.5 [facility] Comment on above: Performed By: #### C BC #### [facility] [address] [address] [address] Carrington Chandler Neutrophils/100 WBC (Bld) 77.7 % Critically high 43.0-75.0 [facility] Comment on above: Performed By: #### C BC #### [facility] [address] [place] [address] Dr. Carrington Chandler Platelet mean volume (Bld) [Entitic vol] 9.5 fL Normal 9.5-13.5 [facility] Comment on above: Performed By: #### C BC #### [facility] [address] [place] [address] Dr. Carrington Chandler PLT 204 103/ul Normal 150-450 [facility] Comment on above: Performed By: #### C BC #### [facility] [address] [place] [address] Dr. Carrington Chandler RBC 4.46 106/ul Critically low 4.70-6.10 [facility] Comment on above: Performed By: #### C BC #### [facility] [address] [place] [address] Dr. Carrington Chandler WBC 11.9 103/ul Critically high 4.0-11.0 [facility] Comment on above: Performed By: #### C BC #### [facility] [address] [place] [address] Dr. Carrington Chandler Cov[facility]-19 [facility]on [facility]23 SARS-CoV-2 (COVID-19) RNA CHARLIE+probe Ql (Unsp spec) Not detected Normal NOT DETECTED [facility] Comment on above: Result Comment: When [...] for this test is supported by the [employer] of Health and Human Service's declaration that [...] longer be used). Performed By: #### C [facility] #### [facility] [address] [place] [address] Dr. Carrington Chandler PROF 14(COMP METB)on 022 Albumin [Mass/Vol] 3.7 g/dL Normal 3.4-5.0 [facility] Comment on above: Performed By: #### C MP #### [facility] [address] [place] [address] Dr. Carrington Chandler Albumin/Globulin [Mass ratio] 0.9 {ratio} Normal [facility] Comment on above: Performed By: #### C MP #### [facility] [address] [place] [address] Dr. Carrington Chandler ALP [Catalytic activity/Vol] 62 U/L Normal 46-116 [facility] Comment on above: Performed By: #### C MP #### [facility] [address] [place] [address] Dr. Carrington Chandler ALT [Catalytic activity/Vol] 21 U/L Normal 16-63 [facility] Comment on above: Performed By: #### C MP #### [facility] [address] [place] [address] Dr. Carrington Chandler Anion gap [Moles/Vol] 12.3 mmol/L Normal [facility] Comment on above: Performed By: #### C MP #### [facility] [address] [place] [address] Dr. Carrington Chandler AST [Catalytic activity/Vol] 13 U/L Critically low 15-37 [facility] Comment on above: Performed By: #### C MP #### [facility] [address] [address] [address] Carrington Chandler Bilirubin [Mass/Vol] 0.5 mg/dL Normal 0.2-1.0 [facility] Comment on above: Performed By: #### C MP #### [facility] [address] [address] [address] Carrington Chandler Calcium [Mass/Vol] 9.1 mg/dL Normal 8.5-10.1 [facility] Comment on above: Performed By: #### C MP #### [facility] [address] [address] [address] Carrington Chandler Chloride [Moles/Vol] 102 mmol/L Normal 98-107 [facility] Comment on above: Performed By: #### C MP #### [facility] [address] [address] [address] Carrington Chandler CO2 [Moles/Vol] 24.9 mmol/L Normal 21.0-32.0 [facility] Comment on above: Performed By: #### C MP #### [facility] [address] [address] [address] Carrington Chandler Creatinine [Mass/Vol] 1.36 mg/dL Critically high 0.70-1.30 [facility] Comment on above: Performed By: #### C MP #### [facility] [address] [address] [address] Carrington Chandler EGFR-AF MAURITANIAN >60 Normal >=60 [facility] Comment on above: Performed By: #### C MP #### [facility] [address] [address] [address] Carrington Chandler EGFR-NON AF MAURITANIAN 53 mL/min/1.73m2 Critically low >=60 [facility] Comment on above: Performed By: #### C MP #### [facility] [address] [address] [address] Carrington Chandler Globulin (S) [Mass/Vol] 3.9 g/dL Normal [facility] Comment on above: Performed By: #### C MP #### [facility] [address] [address] [address] Carrington Chandler Glucose [Mass/Vol] 138 mg/dL Critically high 74-106 [facility] Comment on above: Performed By: #### C MP #### [facility] [address] [address] [address] Carrington Chandler Potassium [Moles/Vol] 4.2 mmol/L Normal 3.5-5.1 [facility] Comment on above: Performed By: #### C MP #### [facility] [address] [address] [address] Carrington Chandler Protein [Mass/Vol] 7.6 g/dL Normal 6.4-8.2 [facility] Comment on above: Performed By: #### C MP #### [facility] [address] [address] [address] Carrington Chandler Sodium [Moles/Vol] 135 mmol/L Critically low 136-145 [facility] Comment on above: Performed By: #### C MP #### [facility] [address] [address] [address] Carrington Chandler Urea nitrogen [Mass/Vol] 24.0 mg/dL Critically high 7.0-18.0 [facility] Comment on above: Performed By: #### C MP #### [facility] [address] [address] [address] Carrington Chandler Urea nitrogen/Creatinine [Mass ratio] 17.6 mg/mg Normal [facility] Comment on above: Performed By: #### C MP #### [facility] [address] [address] [address] Carrington Chandler XR CHEST 1 Von [...] by: DAREK MARX Date: 2022-02-03 02:09 Normal [facility] Vital Signs Date Time Vital Sign Value Performing Clinician Facility 05-29-2024 15:05-0500 Body height 170.18 cm [facility] 05-29-2024 15:05-0500 Body mass index (BMI) [Ratio] 37.4 kg/m2 [facility] 05-29-2024 15:05-0500 Body weight 108.4 kg [facility] 05-29-2024 15:05-0500 Diastolic blood pressure 69 mm[Hg] [facility] 05-29-2024 15:05-0500 Heart rate 93 /min [facility] 05-29-2024 15:05-0500 SaO2% (BldA) [Mass fraction] 93 % [facility] 05-29-2024 15:05-0500 Systolic blood pressure 124 mm[Hg] [facility] 05-11-2024 14:52-0400 Diastolic blood pressure 72 mm[Hg] [facility] 05-11-2024 14:52-0400 Heart rate 108 /min [facility] 05-11-2024 14:52-0400 SaO2% (BldA) [Mass fraction] 95 % [facility] 05-11-2024 14:52-0400 Systolic blood pressure 118 mm[Hg] [facility] 02-24-2024 14:00-0400 Body height 170.18 cm [facility] 02-24-2024 14:00-0400 Body mass index (BMI) [Ratio] 37.7 kg/m2 [facility] 02-24-2024 14:00-0400 Body weight 109.31 kg [facility] 02-24-2024 14:00-0400 Diastolic blood pressure 63 mm[Hg] [facility] 02-24-2024 14:00-0400 Heart rate 99 /min [facility] 02-24-2024 14:00-0400 Systolic blood pressure 99 mm[Hg] [facility] 01-05-2024 12:56-0400 Body height 170.18 cm [facility] 01-05-2024 12:56-0400 Body mass index (BMI) [Ratio] 38.2 kg/m2 [facility] 01-05-2024 12:56-0400 Body weight 110.78 kg [facility] 01-05-2024 12:56-0400 Diastolic blood pressure 66 mm[Hg] [facility] 01-05-2024 12:56-0400 Heart rate 66 /min [facility] 01-05-2024 12:56-0400 SaO2% (BldA) [Mass fraction] 91 % [facility] 01-05-2024 12:56-0400 Systolic blood pressure 108 mm[Hg] [facility] 12-13-2023 13:44-0400 Body height 171.45 cm [facility] 12-13-2023 13:44-0400 Body mass index (BMI) [Ratio] 37.5 kg/m2 [facility] 12-13-2023 13:44-0400 Body weight 110.22 kg [facility] 12-13-2023 13:44-0400 Diastolic blood pressure 60 mm[Hg] [facility] 12-13-2023 13:44-0400 Heart rate 87 /min [facility] 12-13-2023 13:44-0400 SaO2% (BldA) [Mass fraction] 97 % [facility] 12-13-2023 13:44-0400 Systolic blood pressure 102 mm[Hg] [facility] 11-25-2023 14:56-0400 Body height 2042.16 cm [facility] 11-25-2023 14:56-0400 Body mass index (BMI) [Ratio] 0.2 kg/m2 [facility] 11-25-2023 14:56-0400 Body weight 110.22 kg [facility] 11-25-2023 14:56-0400 Diastolic blood pressure 68 mm[Hg] [facility] 11-25-2023 14:56-0400 Heart rate 71 /min [facility] 11-25-2023 14:56-0400 SaO2% (BldA) [Mass fraction] 93 % [facility] 11-25-2023 14:56-0400 Systolic blood pressure 116 mm[Hg] [facility] 10-26-2023 14:31-0400 Body height 171.45 cm [facility] 10-26-2023 14:31-0400 Body mass index (BMI) [Ratio] 37 kg/m2 [facility] 10-26-2023 14:31-0400 Body weight 108.86 kg [facility] 10-26-2023 14:31-0400 Diastolic blood pressure 65 mm[Hg] [facility] 10-26-2023 14:31-0400 Heart rate 78 /min [facility] 10-26-2023 14:31-0400 SaO2% (BldA) [Mass fraction] 97 % [facility] 10-26-2023 14:31-0400 Systolic blood pressure 103 mm[Hg] [facility] 10-04-2023 15:13-0400 Body height 171.45 cm [facility] 10-04-2023 15:13-0400 Body mass index (BMI) [Ratio] 36.7 kg/m2 [facility] 10-04-2023 15:13-0400 Body weight 108.04 kg [facility] 10-04-2023 15:13-0400 Diastolic blood pressure 63 mm[Hg] [facility] 10-04-2023 15:13-0400 Heart rate 72 /min [facility] 10-04-2023 15:13-0400 SaO2% (BldA) [Mass fraction] 93 % [facility] 10-04-2023 15:13-0400 Systolic blood pressure 95 mm[Hg] [facility] 09-14-2023 09:13-0500 Body height 170.2 cm Alok Armijo DO Work Phone: [facility] 09-14-2023 09:13-0500 Body mass index (BMI) [Ratio] 36.81 kg/m2 Alok Armijo DO Work Phone: [facility] 09-14-2023 09:13-0500 Body weight 106.59 kg Alok Armijo DO Work Phone: [facility] 09-14-2023 09:13-0500 Diastolic blood pressure 70 mm[Hg] Alok Armijo DO Work Phone: [facility] 09-14-2023 09:13-0500 Heart rate 72 /min Alok Armijo DO Work Phone: [facility] 09-14-2023 09:13-0500 Systolic blood pressure 118 mm[Hg] Alok Armijo DO Work Phone: [facility] 08-06-2023 13:30-0500 Body height 171.45 cm Brock Modi Other [facility] 08-06-2023 13:30-0500 Body mass index (BMI) [Ratio] 35.95 kg/m2 Brock Modi Other [facility] [employer] Other 08-06-2023 13:30-0500 Body weight 105.69 kg Brock Modi Other [facility] [employer] Other 08-06-2023 13:30-0500 Body weight 105.68 kg [facility] 08-06-2023 13:30-0500 Diastolic blood pressure 66 mm[Hg] Brock Modi Other [facility] 08-06-2023 13:30-0500 SaO2% (BldA) [Mass fraction] 95 % Brock Modi Other [facility] [employer] Other 08-06-2023 13:30-0500 Systolic blood pressure 108 mm[Hg] Brock Modi Other [facility] 08-05-2023 14:23-0500 Diastolic blood pressure 76 mm[Hg] Christopher Sewell MD Work Phone: [employer] 08-05-2023 14:23-0500 Heart rate 70 /min Christopher Sewell MD Work Phone: [employer] 08-05-2023 14:23-0500 Systolic blood pressure 108 mm[Hg] Christopher Sewell MD Work Phone: [employer] 08-05-2023 14:22-0500 Body height 170.2 cm Christopher Sewell MD Work Phone: [employer] 08-05-2023 14:22-0500 Body mass index (BMI) [Ratio] 36.43 kg/m2 Christopher Sewell MD Work Phone: [employer] 08-05-2023 14:22-0500 Body weight 105.51 kg Christopher Sewell MD Work Phone: [employer] 08-05-2023 14:22-0500 Respiratory rate 18 /min Christopher Sewell MD Work Phone: [employer] 06-24-2023 11:00-0500 Body height 171.45 cm Brock Modi Other [employer] Other 06-24-2023 11:00-0500 Body mass index (BMI) [Ratio] 34.56 kg/m2 Brock Modi Other [employer] Other 06-24-2023 11:00-0500 Body temperature 98.1 [degF] Brock Modi Other [employer] Other 06-24-2023 11:00-0500 Body weight 101.61 kg Brock Modi Other [employer] Other 06-24-2023 11:00-0500 Diastolic blood pressure 67 mm[Hg] Brock Modi Other [employer] Other 06-24-2023 11:00-0500 SaO2% (BldA) [Mass fraction] 95 % Brock Modi Other [employer] Other 06-24-2023 11:00-0500 Systolic blood pressure 109 mm[Hg] Brock Modi Other [employer] Other 03-16-2023 11:30-0400 Body height 171.45 cm Brock Modi Other [employer] Other 03-16-2023 11:30-0400 Body mass index (BMI) [Ratio] 33.48 kg/m2 Brock Modi Other [employer] Other 03-16-2023 11:30-0400 Body weight 98.43 kg Brock Modi Other [employer] Other 03-16-2023 11:30-0400 Diastolic blood pressure 67 mm[Hg] Brock Modi Other [employer] Other 03-16-2023 11:30-0400 SaO2% (BldA) [Mass fraction] 93 % Brock Modi Other [employer] Other 03-16-2023 11:30-0400 Systolic blood pressure 114 mm[Hg] Brock Modi Other [employer] Other 02-04-2023 13:30-0400 Body height 171.45 cm Brock Modi Other [employer] Other 02-04-2023 13:30-0400 Body mass index (BMI) [Ratio] 33.64 kg/m2 Brock Modi Other [employer] Other 02-04-2023 13:30-0400 Body weight 98.88 kg Brock Modi Other [employer] Other 02-04-2023 13:30-0400 Diastolic blood pressure 67 mm[Hg] Brock Modi Other [employer] Other 02-04-2023 13:30-0400 SaO2% (BldA) [Mass fraction] 96 % Brock Modi Other [employer] Other 02-04-2023 13:30-0400 Systolic blood pressure 117 mm[Hg] Brock Modi Other [employer] Other 12-24-2022 14:08-0400 Body height 167.64 cm Brock Modi Work Phone: [place] [employer] DO Work Phone: 12-24-2022 14:08-0400 Body mass index (BMI) [Ratio] 35.02 kg/m2 Brock Modi Work Phone: [employer] [place] [employer] DO Work Phone: 12-24-2022 14:08-0400 Body surface area Derived from formula 2.07 m2 Brock Modi Work Phone: [employer] [place] [employer] DO Work Phone: 12-24-2022 14:08-0400 Body weight 98.43 kg Brock Modi Work Phone: [employer] [place] [employer] DO Work Phone: 12-24-2022 14:08-0400 Diastolic blood pressure 80 mm[Hg] Brock Mdoi Work Phone: [employer] [place] [employer] DO Work Phone: 12-24-2022 14:08-0400 Heart rate 115 /min Brock Modi Work Phone: [facility] [employer] [employer] DO Work Phone: 12-24-2022 14:08-0400 Systolic blood pressure 124 mm[Hg] Brock Modi Work Phone: [facility] [employer] [employer] DO Work Phone: 11-27-2022 11:00-0400 Body height 171.45 cm Wagner Marrufo Other [employer] Other 11-27-2022 11:00-0400 Body mass index (BMI) [Ratio] 33.48 kg/m2 Wagner Fernandezley Other [employer] Other 11-27-2022 11:00-0400 Body weight 98.43 kg Wagner Fernandezley Other [employer] Other 11-12-2022 12:45-0400 Body height 171.45 cm Brock Modi Other [employer] Other 11-12-2022 12:45-0400 Body mass index (BMI) [Ratio] 33.48 kg/m2 Brock Modi Other [employer] Other 11-12-2022 12:45-0400 Body weight 98.43 kg Brock Modi Other [employer] Other 11-12-2022 12:45-0400 Diastolic blood pressure 78 mm[Hg] Brock Modi Other [employer] Other 11-12-2022 12:45-0400 SaO2% (BldA) [Mass fraction] 92 % Brock Modi Other [employer] Other 11-12-2022 12:45-0400 Systolic blood pressure 122 mm[Hg] Brock Modi Other [employer] Other 10-21-2022 15:18-0400 Body height 167.64 cm Brock Modi Work Phone: [facility] 250 DO Work Phone: 10-21-2022 15:18-0400 Body mass index (BMI) [Ratio] 35.51 kg/m2 Brock Modi Work Phone: [facility] DO Work Phone: 10-21-2022 15:18-0400 Body surface area Derived from formula 2.08 m2 Brock Modi Work Phone: [facility] [place] 250 DO Work Phone: 10-21-2022 15:18-0400 Body weight 99.79 kg Brock Modi Work Phone: [facility] 250 DO Work Phone: 10-21-2022 15:18-0400 Diastolic blood pressure 70 mm[Hg] Brock Modi Work Phone: [facility] [place] 250 DO Work Phone: 10-21-2022 15:18-0400 Heart rate 84 /min Brock Modi Work Phone: [facility] [place] 250 DO Work Phone: 10-21-2022 15:18-0400 Systolic blood pressure 126 mm[Hg] Brock Modi Work Phone: [facility] 250 DO Work Phone: 10-15-2022 11:15-0400 Body height 171.45 cm Brock Modi Other [employer] Other 10-15-2022 11:15-0400 Body mass index (BMI) [Ratio] 33.33 kg/m2 Brock Modi Other [employer] Other 10-15-2022 11:15-0400 Body weight 97.98 kg Brock Modi Other [employer] Other 10-15-2022 11:15-0400 Diastolic blood pressure 84 mm[Hg] Brock Modi Other [employer] Other 10-15-2022 11:15-0400 SaO2% (BldA) [Mass fraction] 94 % Brock Modi Other [employer] Other 10-15-2022 11:15-0400 Systolic blood pressure 122 mm[Hg] Brock Modi Other [facility] [employer] Other 10-13-2022 11:57-0400 Body temperature 97.4 [degF] MD Brock Modi Work Phone: [facility] 10-13-2022 11:57-0400 Diastolic blood pressure 85 mm[Hg] MD Brock Modi Work Phone: [facility] 10-13-2022 11:57-0400 Heart rate 107 /min MD Brock Modi Work Phone: [facility] 10-13-2022 11:57-0400 Inhaled oxygen flow rate 2 L/min MD Brock Modi Work Phone: [facility] 10-13-2022 11:57-0400 Respiratory rate 17 /min MD Brock Modi Work Phone: [facility] 10-13-2022 11:57-0400 SaO2% (BldA) [Mass fraction] 97 % MD Brock Modi Work Phone: [facility] 10-13-2022 11:57-0400 Systolic blood pressure 125 mm[Hg] MD Brock Modi Work Phone: [facility] 10-13-2022 04:32-0400 Body weight 97.52 kg MD Brock Modi Work Phone: [facility] 10-10-2022 08:46-0400 65 1 Brock Modi Work Phone: [facility] 250 DO Work Phone: Comment on above: [id number] 10-10-2022 04:57-0400 Body height 170.18 cm MD Brock Modi Work Phone: [facility] 09-09-2022 14:30-0500 Body height 171.45 cm Wagner Marrufo Other [facility] [employer] Other 09-09-2022 14:30-0500 Body mass index (BMI) [Ratio] 34.41 kg/m2 Wagner Marrufo Other [facility] [employer] Other 09-09-2022 14:30-0500 Body weight 101.15 kg Wagner Marrufo Other [facility] [employer] Other 08-13-2022 12:15-0500 Body height 171.45 cm Brock Modi Other [facility] [employer] Other 08-13-2022 12:15-0500 Body mass index (BMI) [Ratio] 34.38 kg/m2 Brock Modi Other [facility] [employer] Other 08-13-2022 12:15-0500 Body weight 101.06 kg Brock Modi Other [facility] [employer] Other 08-13-2022 12:15-0500 Diastolic blood pressure 84 mm[Hg] Brock Modi Other [facility] [employer] Other 08-13-2022 12:15-0500 SaO2% (BldA) [Mass fraction] 97 % Brock Modi Other [facility] Other 08-13-2022 12:15-0500 Systolic blood pressure 132 mm[Hg] Brock Modi Other [facility] Other 07-30-2022 12:30-0500 Body height 171.45 cm Brock Modi Other [facility] Other 07-30-2022 12:30-0500 Body mass index (BMI) [Ratio] 32.71 kg/m2 Brock Modi Other [facility] Other 07-30-2022 12:30-0500 Body weight 96.16 kg Brock Modi Other [facility] Other 07-30-2022 12:30-0500 Diastolic blood pressure 80 mm[Hg] Brock Modi Other [facility] Other 07-30-2022 12:30-0500 SaO2% (BldA) [Mass fraction] 97 % Brock Modi Other [facility] Other 07-30-2022 12:30-0500 Systolic blood pressure 122 mm[Hg] Brock Modi Other [facility] Other Encounters Encounter Date Encounter Type Care Provider Facility Start: 05-29-2024 End: 05-29-2024 ambulatory [facility] Work Phone: Start: 05-29-2024 End: 05-29-2024 Patient encounter procedure [facility] Physician [facility] Work Phone: Start: 05-26-2024 Non-patient / Non-visit [facility] Physician [facility] Work Phone: Start: 05-11-2024 Non-patient / Non-visit [facility] Physician [facility] Work Phone: Start: 05-08-2024 Non-patient / Non-visit [facility] Physician [facility] Work Phone: Start: 05-07-2024 Non-patient / Non-visit [facility] Work Phone: Start: 03-03-2024 End: 03-03-2024 ambulatory [facility] Start: 02-24-2024 End: 02-24-2024 ambulatory [facility] Work Phone: Start: 02-24-2024 End: 02-24-2024 Patient encounter procedure [facility] Work Phone: Start: 01-05-2024 End: 01-05-2024 ambulatory [facility] Work Phone: Start: 01-05-2024 End: 01-05-2024 Patient encounter procedure [facility] Physician [facility] Work Phone: Start: 12-13-2023 End: 12-13-2023 ambulatory [facility] Work Phone: Start: 12-13-2023 End: 12-13-2023 Patient encounter procedure [facility] Physician [facility] Work Phone: Start: 11-25-2023 End: 11-25-2023 Patient encounter procedure [facility] Physician [facility] Work Phone: Start: 10-26-2023 End: 10-26-2023 ambulatory [facility] Work Phone: Start: 10-26-2023 End: 10-26-2023 Patient encounter procedure [facility] Work Phone: Start: 10-09-2023 Non-patient / Non-visit [facility] Work Phone: Start: 10-04-2023 End: 10-04-2023 Patient encounter procedure [facility] Physician [facility] Work Phone: Start: 10-04-2023 Non-patient / Non-visit [facility] Work Phone: Start: 10-04-2023 End: 10-04-2023 ambulatory CHRISTOPHER SEWELL [facility] Start: 09-14-2023 End: 09-14-2023 ambulatory [facility] Start: 09-14-2023 End: 09-14-2023 Office outpatient visit 15 minutes [facility] DO Work Phone: [facility] Comment on above: Atherosclerosis of n ative coronary artery of chinik heart without angina pectoris; Essential hypertension, benign; Mixed hyperlipidemia; Ischemic cardiomyopathy; Past myocardial infarction; Moderate chronic obstructive pulmonary disease (CMS/HCC); Obesity (BMI 35.0-39.9 without comorbidity); Current smoker Start: 09-03-2023 End: 09-03-2023 ambulatory Brock Modi Other [facility] Other Start: 09-03-2023 Telephone encounter Brock Modi [facility] Start: 08-24-2023 Orders Only Kendal Carmen [employer] [facility] Comment on above: Abdominal aortic ane urysm (AAA) without rupture, unspecified part (CMS-HCC) (Primary Dx); Obstructive chronic bronchitis with exacerbation (CMS-HCC); Obesity with body mass index (BMI) of 30.0 to 39.9 Start: 08-06-2023 End: 08-06-2023 ambulatory Brock Modi Other [facility] Other Start: 08-06-2023 Office outpatient vi sit 15 minutes Brock Modi [facility] Start: 08-06-2023 End: 08-06-2023 Patient encounter procedure [facility] Physician [facility] Work Phone: Start: 08-05-2023 End: 08-05-2023 ambulatory CHRISTOPHER SEWELL [facility] Other Start: 08-05-2023 Telephone encounter Brock Modi [facility] Start: 08-05-2023 End: 08-05-2023 Office outpatient visit 15 minutes Christopher Sewell MD Work Phone: [facility] Comment on above: Abdominal aortic ane urysm (AAA) without rupture, unspecified part ([facility]) (Primary Dx); Obstructive chronic bronchitis with exacerbation ([facility]); Obesity with body mass index (BMI) of 30.0 to 39.9; Chronic obstructive pulmonary disease, unspecified COPD type ([facility]) Start: 07-16-2023 End: 07-16-2023 ambulatory Brock Modi Other [facility] Other Start: 07-16-2023 Telephone encounter Brock Modi [facility] Start: 06-24-2023 End: 06-24-2023 ambulatory Brock Modi Other [facility] Other Start: 06-24-2023 Office outpatient vi sit 15 minutes Brock Modi [facility] Start: 04-07-[address] Alok chauhan Akbar Facility: Start: 04-02-2023 End: 04-02-2023 ambulatory Brock Modi Other [facility] Other Start: 04-02-2023 Telephone encounter Brock Modi [facility] Start: 03-19-2023 End: 03-19-2023 ambulatory Brock Modi Other [facility] Other Start: 03-19-2023 Telephone encounter Brock Modi [facility] Start: 03-16-2023 End: 03-16-2023 ambulatory Brock Modi Other [facility] Other Start: 03-16-2023 Office outpatient vi sit 15 minutes Brock Modi [facility] Start: 02-04-2023 End: 02-04-2023 ambulatory Brock Modi Other [facility] Other Start: 02-04-2023 Office outpatient vi sit 15 minutes Brock Modi [facility] Start: 01-29-2023 End: 01-29-2023 ambulatory Viral Yang Other [facility] Other Start: 01-29-2023 Telephone encounter Viral Yang [facility] Start: 01-27-2023 Rx Renewal Brock Modi Work Phone: [facility] [place] [address] DO Work Phone: Start: 01-19-2023 Patient encounter procedure Brock Modi Work Phone: [facility] [address] [place] Work Phone: Start: 01-14-2023 End: 01-14-2023 ambulatory Brock Modi Other [facility] Other Start: 01-14-2023 Telephone encounter Brock Modi [facility] Start: 12-24-2022 Office outpatient vi sit 40 minutes Brock Modi Work Phone: [facility] [address] DO Work Phone: Start: 12-24-[address] Alok Armijo Facility: Start: 12-04-2022 End: 12-04-2022 ambulatory Brock Modi Other [facility] Other Start: 12-04-2022 Telephone encounter Brock Modi [facility] Start: 12-03-2022 End: 12-03-2022 ambulatory Brock Modi Other [facility] Other Start: 12-03-2022 Telephone encounter Brock Modi [facility] Start: 11-27-2022 End: 11-27-2022 ambulatory Wagner Marrufo Other [employer] Other Start: 11-27-2022 Office outpatient vi sit 25 minutes Wagner Marrufo [facility] Start: 11-12-2022 End: 11-12-2022 ambulatory Brock Modi Other [facility] [employer] Other Start: 11-12-2022 Office outpatient vi sit 15 minutes Brock Modi [facility] Start: 11-04-2022 ambulatory JANINE BOYKINLARON Facili ty:H1 Start: 11-03-2022 End: 11-03-2022 Patient encounter procedure MD Brock Modi Work Phone: [facility] [place] Work Phone: Start: 11-03-2022 End: 11-03-2022 ambulatory MD Brock Modi Work Phone: [facility] Work Phone: Start: 11-02-2022 Patient encounter procedure Brock Modi Work Phone: [facility] [place] [address] DO Work Phone: Start: 11-02-2022 ambulatory Janine Cunha Facility:1 [id number] Start: 10-29-2022 Chart Update Brock Modi Work Phone: [facility] 600 DO Work Phone: Start: 10-28-2022 End: 10-28-2022 ambulatory MD Brock Modi Work Phone: [facility] Work Phone: Start: 10-28-2022 End: 10-28-2022 Patient encounter procedure MD Brock Modi Work Phone: [facility] [place] Work Phone: Start: 10-27-2022 End: 10-27-2022 ambulatory Brock Modi Other [facility] [employer] Other Start: 10-27-2022 Telephone encounter Brock Modi [facility] Start: 10-21-2022 Transitional care juan diego neri srvc 14 day discharge Brock Modi Work Phone: [facility] [address] DO Work Phone: Start: 10-21-2022 End: 10-21-2022 ambulatory Janine Cunha [employer] [place] [employer] Other Start: 10-21-2022 Telephone encounter Adi Campos [employer] Start: 10-20-2022 End: 10-20-2022 ambulatory Adi Campos Other [facility] [employer] Other Start: 10-20-2022 Office outpatient ne w 45 minutes Adi Campos [facility] Start: 10-15-2022 End: 10-15-2022 ambulatory Brock Modi Other [place] Other Start: 10-15-2022 Office outpatient vi sit 15 minutes Brock Modi [facility] Start: 10-10-[address] Brock Modi Facility:[id number] Start: 10-10-2022 End: 10-13-2022 Evaluation and management of inpatient MD Brock Modi Work Phone: [facility] [place] [employer] Work Phone: Start: 10-10-2022 End: 10-10-2022 ambulatory COLIN TREADWELL Facility:H1 Start: 09-09-2022 Office outpatient ne w 45 minutes Wagner Marrufo [facility] Start: 09-09-2022 End: 09-09-2022 ambulatory DO Wagner Marrufo Work Phone: [facility] Work Phone: Start: 09-09-2022 End: 09-09-2022 Patient encounter procedure DO Wagner Marrufo Work Phone: [facility] Start: 09-07-2022 End: 09-08-2022 ambulatory COLIN TREADWELL Facility:H1 Start: 08-13-2022 End: 08-13-2022 ambulatory Brock Modi Other [facility] Other Start: 08-13-2022 Office outpatient vi sit 15 minutes Brock Modi [facility] Start: 08-10-2022 End: 08-11-[address] BROCK MODI Facility:H1 Start: 07-30-2022 End: 07-30-2022 ambulatory Brock Modi Other [facility] Other Start: 07-30-2022 Office outpatient vi sit 25 minutes Brock Modi [facility] Start: 07-28-2022 End: 07-28-2022 ambulatory Brock Modi Other [place] Other Start: 07-28-2022 Telephone encounter Brock Modi [facility] [employer] Start: 07-10-2022 End: 07-11-[address] CAR LIGHT Facility:H1 Start: 07-08-2022 End: 07-08-[address] JANELLE LAL . Facility:H1 Start: 07-05-2022 End: 07-05-[address] RUBÉN DALY Facility:H1 Start: 07-03-2022 End: 07-04-[address] ARLIN CUNHA Facility:H1 Start: 02-03-2022 End: 02-03-[address] ARLIN CUNHA Facility:H1 Patient encounter status Brock Modi Work Phone: [facility] 250 DO Work Phone: Procedures Date [...] 64 Years) (3 - PPSV23 or PCV20) [facility] Start: 09-20-2024 End: 09-20-2024 Patient encounter procedure 09/20/2024 9:00 AM EST Office Visit [facility] [address] [facility] [address] [place] [id number] Alok Armijo DO [address] [facility] [address] [place] [address] [facility] Start: 08-05-2024 Adult BMI Screening Adult BMI Screen ing [facility] Start: 08-05-2024 Tobacco Screening Tobacco Screening [facility] Start: 02-17-2024 End: 02-17-2024 Patient encounter procedure 02/17/2024 10:10 AM EDT [facility] [address] [place] [address] Rom Pierre MD [address], [facility] [address] [place] [address] [facility] Start: 09-05-2023 Tobacco Counseling Tobacco Counselbernadine titus [facility] Start: 08-24-2023 End: 08-24-2024 CTA Abdominal vessels and Pelvis vessels W contrast IV CT angiogram abdomen and pelvis Imaging Routine Abdominal Aortic Aneurysm (Aaa) Without Rupture, Unspecified Part (C[facility]-Hcc) Obstructive chronic bronchitis with exacerbation (CMS-HCC) Obesity with body mass index (BMI) of 30.0 to 39.9 Expected: 08/24/2023, Expires: 08/24/2024 [employer] Work Phone: Comment on above: Expected: 08/24/2023 [...] COPD type (CMS-HCC) Expected: 08/22/2023, Expires: 08/22/2024 [employer] Work Phone: Comment on above: Expected: 08/22/2023 , Expires: 08/22/2024 Start: 04-07-2023 FUV, Provider: Alok Armijo, Status: Pen, Time: 11:20 AM FUV, Provider: Alok Armijo, Status: Pen, Time: 11:20 AM [facility] [address] DO Work Phone: Start: 03-26-2023 Influenza vaccination [facility] Start: 01-19-2023 FUV, Provider: Alok Armijo, Status: Pen, Time: 2:30 PM FUV, Provider: Alok Armijo, Status: Pen, Time: 2:30 PM [facility] [place] [address] DO Work Phone: Start: 11-02-2022 HOLTER 48, Provider: VERONICA LANGLEY BEVERAGE SPECIALIST 1,[id number], Status: Pen, Time: 2:30 PM HOLTER 48, Provider: VERONICA LANGLEY BEVERAGE SPECIALIST 1,[id number], Status: Pen, Time: 2:30 PM [facility] [address] DO Work Phone: Start: 10-13-2022 [facility] Start: 10-10-2022 Dilation of Coronary Artery, Two Arteries with Three Drug-eluting Intraluminal Devices, Percutaneous Approach Dilation of Coronary Artery, Two Arteries with Three Drug-eluting Intraluminal Devices, Percutaneous Approach [facility] Start: 10-10-2022 Fluoroscopy of Left Heart using Low Osmolar Contrast Fluoroscopy of Left Heart using Low Osmolar Contrast [facility] Start: 10-10-2022 Fluoroscopy of Multi ple Coronary Arteries using Low Osmolar Contrast Fluoroscopy of Multiple Coronary Arteries using Low Osmolar Contrast [facility] Start: 10-10-2022 Measurement of Cardi ac Sampling and Pressure, Left Heart, Percutaneous Approach Measurement of Cardiac Sampling and Pressure, Left Heart, Percutaneous Approach [facility] Start: 10-10-2022 Hospital admission [facility] Start: 10-10-2022 [facility] Start: 10-10-2022 Hospital admission [facility] Start: 10-10-2022 [facility] Start: 2010 Administration of varicella zoster vaccine Zoster (Shingles) Vaccine (1 of 2) [facility] Start: 2010 Zoster Vaccines (1 of 2) Zoste r Vaccines (1 of 2) [facility] Start: 1982 DTaP/Tdap/Td Vaccine s (1 - Tdap) DTaP/Tdap/Td Vaccines (1 - Tdap) [facility] Start: 1979 DTaP,Tdap and Td Vac cines (1 - Tdap) DTaP,Tdap and Td Vaccines (1 - Tdap) [facility] Start: 1978 Adult BMI Follow Up Plan Adult BMI Follow Up Plan [facility] Start: 1978 Diabetes mellitus screening Diabetes Screening [facility] Start: 1978 Hepatitis C screening Hepatitis C Sc malia [facility] Start: 1972 Depression Screening Depression Scre devin [facility] Start: 1961 MMR Vaccines (1 of 1 - Standard series) MMR Vaccines (1 of 1 - Standard series) [facility] Start: 1960 COVID-19 Vaccine (#1) COVID-19 Vacci ne (#1) [facility] Start: 1960 HIV screening HIV Screening [facility] Start: 1960 Lipid panel Lipid Panel [facility] Start: 1960 Screening for malign ant neoplasm of colon [facility] Start: 1960 Yearly Adult Physical Yearly Adult P hysical [facility] End: 08-22-2024 Creatinine includes GFR, serum Creatinine includes GFR, serum Lab Routine Abdominal Aortic Aneurysm (Aaa) Without Rupture, Unspecified Part ([facility]) Obstructive chronic bronchitis with exacerbation ([facility]) Obesity with body mass index (BMI) of 30.0 to 39.9 Chronic obstructive pulmonary disease, unspecified COPD type ([facility]) 1 Occurrences starting 08/22/2023 until 08/22/2024 [employer] Comment on above: 1 Occurrences starti ng 08/22/2023 until 08/22/2024 End: 08-24-2024 Creatinine includes GFR, serum Creatinine includes GFR, serum Lab Routine Abdominal Aortic Aneurysm (Aaa) Without Rupture, Unspecified Part ([facility]) Obstructive chronic bronchitis with exacerbation ([facility]) Obesity with body mass index (BMI) of 30.0 to 39.9 1 Occurrences starting 08/24/2023 until 08/24/2024 [employer] Work Phone: Comment on above: 1 Occurrences starti ng 08/24/2023 until 08/24/2024 Patient Education Coronary Angio plasty (DC) Coronary Stenting (DC) Angina (DC) Chest Pain (DC) Drug Eluting Stents [facility] Work Phone: Patient referral [facility] Work Phone: [place] Lower extremity v ein - right [facility] Immunizations Immunization Date Immunization Notes Care Provider Fa cility 05-02-2018 pneumococcal Conjuga te, unspecified formulation; Translations: [Need for prophylactic vaccination against Streptococcus pneumoniae (pneumococcus)] Brock Modi Other [facility] Other 05-02-2018 pneumococcal polysaccharide vaccine, 23 valent Brock Modi Work Phone: [facility] 05-26-2017 pneumococcal conjuga te vaccine, 13 errol Brock Urbano Ly Work Phone: [facility] Payers Date Payer Category Payer Medicaid [facility] MED[facility] MEDICAID [id number] 2022-Present [address] [place] [address] [id number] 2022 Medicaid [id number] 2022 Self-pay 2019 Unknown 1960 Unknown [id number] [id number] 1960 Unknown [id number] 2.16.840.1.820562.3.579.2.593 1960 Unknown [id number] 2.16.840.1.219968.3.579.2.593 1960 Unknown [id number] 2.16.840.1.024875.3.579.2.593 1960 Unknown [id number] 2.16.840.1.897387.3.579.2.593 1960 Unknown [id number] 2.16.840.1.837715.3.579.2.593 1960 Unknown [id number] 2.16.840.1.234592.3.579.2.593 1960 Unknown [id number] 2.16.840.1.523596.3.579.2.593 1960 Unknown [id number] 2.16.840.1.085971.3.579.2.593 1960 Unknown [id number] 2.16.840.1.285662.3.579.2.356 1960 Unknown [id number] 2.16.840.1.737412.3.579.2.356 1960 Unknown [id number] 2.16.840.1.834937.3.579.2.356 1960 Unknown [id number] 2.16.840.1.953028.3.579.2.356 1960 Unknown [id number] 2.16.840.1.777364.3.579.2.356 1960 Unknown [id number] 2.16.840.1.649779.3.579.2.1286 1960 Unknown [id number] 2.16.840.1.740624.3.579.2.1244 1960 Unknown [id number] 2.16.840.1.398424.3.579.2.1286 1960 Unknown [id number] 2.16.840.1.374711.3.579.2.1286 1959 Unknown [id number] 2.16.840.1.607030.19 Unknown [id number] [id number] Social History Date Type Detail Facility Tobacco smoking stat [facility] Unknown if ever smoked [facility] Work Phone: Start: 1960 Sex Assigned At Male F [facility] Start: 08-05-2023 End: 08-06-2023 Sex Assigned At [employer] [facility] [employer] Other Start: 10-10-2022 End: 10-10-2022 Tobacco smoking status NHIS Smoker (finding) [facility] Start: 08-26-2022 End: 08-06-2023 Daily caffeine consumption Daily caffeine consumption -[facility] [address] DO Work Phone: Comment on above: 1/2 gallon coffee da darrion; 5-6 cig daily; 8 cigs daily; Start: 08-26-2022 End: 09-14-2023 Tobacco smoking status MNIS Smokes tobacco daily [facility] [employer] Start: 01-14-1992 History of tobacco use Cigarette Smo ker [facility] Start: 08-26-2022 Tobacco use and exposure [facility]ok[facility] Start: 08-05-2023 End: 09-14-2023 Alcohol intake [facility]drinker (finding[facility] Within the past 12 months we worried whether our food would run out before we got money to buy more. Never [employer] Start: 08-26-2022 Tobacco Comment pack and a nathanael f a day pt reports he is really trying to quit 09/04/21 [employer] Start: 1960 Sex Assigned At Not on file P [employer] Start: 09-04-2023 End: 09-14-2023 Exposure to SARS-CoV-2 (event) Not sure [facility] Medical Equipment Procedure Code Equipment Code Equipment Origin al Text Equipment Identifier Dates Drug-eluting coronary artery stent, [id number] lymer-coated ()[id number] FDA Start: 10-10-2022 Drug-eluting coronary artery stent, [id number]-[id number]-qu lymer-coated ()[id number] FDA Start: 10-10-2022 Drug-eluting coronary artery stent, [id number]-tf lymer-coated ()[id number] FDA Start: 10-10-2022 Goals Date Patient Goal Desired Activity /State Functional Status Date Assessment Result Facility 10-13-2022 Functional status Patient at Baseline [facility] Work Phone: Mental Status Date Assessment Result Facility 10-13-2022 Cognitive function Cognitive Sta tus Patient at Baseline [facility] Work Phone: Clinical Notes 07-30-2022 to 09-14-2023 Alok Armijo, DO - 09/14/2023 9:10 AM ESTPatient Instructions [...] ASHD; patient sustained high risk non-ST elevation NM in October 10, 2022 with primary revascularization [...] remains compliant on current DAPT and post NM therapies Recommendations: Discontinue ticagrelor, switch to clopidogrel [...] Disp: , Rfl: Assessment/Plan 1. Atherosclerosis of chinik coronary artery of chinik heart without angina pectoris 2. Essential hypertension, benign 3. Mixed hyperlipidemia 4. Ischemic cardiomyopathy 5. Past myocardial infarction 6. Moderate chronic obstructive pulmonary disease (CMS/HCC) 7. Obesity (BMI 35.0-39.9 without comorbidity) 8. Current smoker Scribe Attestation By signing my name below, I, Eric Arreguin LPN attest that this documentation has been prepared under the direction and in the presence of Alok Armijo DO. Provider Attestation - Scribe documentation All medical record entries made by the Scribe were at my direction and personally dictated by me. I have reviewed the chart and agree that the record accurately reflects my personal performance of the history, physical exam, discussion and plan. documented in this encounter [facility] Work Phone: 09-14-2023 Instructions Kate Cruz LPN [...] instructions on exercise. documented in this encounter [facility] Work Phone: 08-06-2023 Evaluation note Encounter Date [...] 6 months with imaging at that time. [employer] Other 01-11-2024 History of Present illness Narrative* Christopher Sewell MD - 08/05/2023 11:20 AM EST CHIEF COMPLAINT: Chief Complaint Patient presents with Follow-up Yearly follow up. Testing was in 08/2022. HISTORY OF PRESENT ILLNESS: Hector Gaspar Ehsan is a 63 y.o. male who presents [...] aortic aneurysm (AAA) without rupture, unspecified part ([facility]) - [facility] - [place], [place] - CT angiogram abdomen and pelvis; Future - Creatinine includes GFR, serum; Future Obstructive chronic bronchitis with exacerbation ([facility]) - CT angiogram abdomen and pelvis; Future - Creatinine includes GFR, serum; Future Obesity with body mass index (BMI) of 30.0 to 39.9 - [address] angiogram abdomen and pelvis; Future - Creatinine includes GFR, serum; Future Chronic obstructive pulmonary disease, unspecified COPD type ([facility]) - CT angiogram abdomen and pelvis; Future - Creatinine includes GFR, serum; Future Patient with infrarenal abdominal aortic aneurysm. His most recent duplex ultrasound shows 5.2 cm and that was in June of 2023. At this point I will see him back in 6 months with a follow-up CT angiogram. documented in this encounterMagruder Memorial HospitalSparxent [id number] Evaluation note* Encounter Date Diagnosis Assessment Notes Treatment Notes Treatment Clinical Notes Jun, Abdominal aortic aneurysm (AAA) without rupture, unspecified part (ICD-10 - I71.40) [facility] Other 11-30-2023 Evaluation note* Encounter Date Diagnosis Assessment Notes Treatment Notes Treatment Clinical Notes May, Abdominal aortic aneurysm (AAA) without rupture, unspecified part (ICD-10 - I71.40) Pt requests order as he is overdue for recheckUS. May, Bronchitis (ICD-10 - J40) Finish meds and treatment plan ordered by ER recently. Pt understands as he is improving. [facility] Other 08-25-2023 Evaluation note* Encounter Date Diagnosis Assessment Notes Treatment Notes Treatment Clinical Notes Feb, Acute cystitis without hematuria (ICD-10 - N30.00) [facility] Other 08-22-2023 Evaluation note* Encounter Date Diagnosis Assessment Notes Treatment Notes Treatment Clinical Notes Feb, Penile discharge (ICD-10 - R36.9) Pt request STI testing Feb, Dysuria (ICD-10 - R30.0) Rule out UTI based on symptoms. Will call w results. Push fluids. Feb, Chronic obstructive pulmonary disease, unspecified (ICD-10 - J44.9) Clinical diagnosis secondary to [id number] history of tobacco abuse. He will need PFTs in the future. Discussed missed appts w Dr. Campos and sleep lab. He states he will not followup there as he doesn't want to do a lung biopsy. His resp symptoms are improved overall. He expresses understanding on the severity of his condition and he chooses not to followup. [facility] Other 07-13-2023 Evaluation note* Encounter Date Diagnosis Assessment Notes Treatment Notes Treatment Clinical Notes Jan, COPD, moderate (ICD-10 - J44.9) Reminded him to keep appt w Dr. Campos on 02/10. Continue home medications. Avoid going outside with there is haze. Jan, Other sleep disorders (ICD-10 - G47.8) Gave number for the [facility] Sleep lab. He missed his last appt as his daughter had COVID. He will call to reschedule. [facility] Other 07-07-2023 Evaluation note* Encounter Date Diagnosis Assessment Notes Treatment Notes Treatment Clinical Notes Jan, Situational anxiety (ICD-10 - F41.8) [facility] Other 05-11-2023 Evaluation note* Encounter Date Diagnosis Assessment Notes Treatment Notes Treatment Clinical Notes November, Situational anxiety (ICD-10 - F41.8) [facility] Other 05-05-2023 Evaluation note* Encounter Date Diagnosis [...] any surgical interventions. Tobacco cessation program at [facility] has been recommended and offered as well as the national Quitline 3-145-PZKN-NOW. We have discussed pharmacologic treatment including nicotine replacement therapy which can lead to a positive nicotine test as well as nicotine free medications both of which will need to be managed by their PCP. We have provided handout for the [facility] Tobacco Cessation Program. This discussion was limited to 5 minutes. [facility] Other 04-20-2023 Evaluation note* Encounter Date Diagnosis Assessment Notes Treatment Notes Treatment Clinical Notes Oct, Chronic obstructive pulmonary disease, unspecified COPD type (ICD-10 - J44.9) Will resume inhalers as prescribed. Keep appt w Dr. Campos. Notes frequent dyspnea, agrees to a prednisone course. Oct, INOCENTE (obstructive sleep apnea) (ICD-10 - G47.33) I called [facility]. He has to meet with the sleep specialist before the test is done, even though it was already ordered. I gave him the date of the appt. I also ordered the test. Oct, Coronary artery disease involving chinik heart without angina pectoris, unspecified vessel or lesion type (ICD-10 - I25.10) Continued followup w [facility]. Continue time off work until breathing status is improved. [facility] Other 03-28-2023 Evaluation note* Encounter Date Diagnosis Assessment Notes Treatment Notes Treatment Clinical Notes Sep, Chronic obstructive pulmonary disease, unspecified COPD type (ICD-10 - J44.9) Trelegy samples and training please Sep, Atelectasis of right lung (ICD-10 - J98.11) Please obtain any previous chest CT done at [place] in the past, and have them load onto our PACS Sep, Tobacco use disorder (ICD-10 - F17.200) Sep, Coronary artery disease involving chinik heart without angina pectoris, unspecified vessel or lesion type (ICD-10 - I25.10) [facility] Other 03-23-2023 Evaluation note* Encounter Date Diagnosis Assessment Notes Treatment Notes Treatment Clinical Notes Sep, Coronary artery disease involving chinik coronary artery of chinik heart without angina pectoris (ICD-10 - I25.10) [...] needs a titration study at the least. [facility] Other 03-21-2023 Hospital Discharge instructions Additional Instructions [...] doctor or pharmacist, without first calling the entry clerk who implanted the stent. If you require [...] weight lifting, stair steppers, etc. until the entry clerk approves these activities. Check with the entry clerk on your first follow-up visit. CALL YOUR PHYSICIAN at [phone]: -If bleeding should occur from the catheter insertion site- apply pressure to the site then immediately call us. -Report any fever, redness, drainage, increased swelling, or firmness at the catheter insertion site. Some bruising or slight swelling may be present at the time of discharge. -Should arm or leg become cold, numb, white, or blue, contact the entry clerk immediately. -IF you should experience episodes of [...] is recommended. Please call Central Scheduling at [phone] to schedule your appointment.] The attending entry clerk or [facility] nurse clinician should provide you with specific instructions regarding activity, diet, medications, and further follow up for you. Follow the medication instructions provided on your discharge. If the dosages and instructions on this sheet differ from the dosage and instructions on the bottle, follow the instructions on the bottle. [facility] is not responsible for incorrect prescription information provided by the patient during their visit. Do not stop your medications without consulting your health care provider. Please take the list with you to your next doctor's appointment.[facility] Work Phone: 1(513) 178-884403-21-2023 Progress note Author Rubén Tatum [facility] October 13, 2022 9:02am Note Date/Time October 13, 2022 9:0 2am [facility] [address] [place] [address] Cardiology Progress Note Signed Patient: Hector Gaspar SR MR#: [id number] : 1960 Acct:[id number] Age/Sex: 62 / M Adm Date: 3 Loc: 4P Room: [address] [place] [address] Type: ADM IN Attending Dr: Barbara Rivero [...] on postNSTEMI/PCI metoprolol tartrate. 5. Follow-up in [facility] heart clinic within 10 days. [...] signed by Rubén Tatum MD> 10/13/22 0902 [facility] Work Phone: 1(536) 293-718303-20-2023 Progress note Author Barbara Rivero [facility] October 12, 2022 2:24pm Note Date/Time October 12, 2022 2:1 2pm [facility] [address] [place] [address] Hospitalist Progress Note Signed Patient: Hector Gaspar SR MR#: [id number] : 1960 Acct:[id number] Age/Sex: 62 / M Adm Date: 3 Loc: Room: [address] [place] [address] Type: ADM IN Attending Dr: Barbara Rivero [...] 10/12/23 09:59 Not Given DAILY@1000 [facility] Fentanyl Citrate 25 mcg 10/10/22 12:23 Fentanyl/Pf [...] this time. (3) Ventricular tachycardia seen on property assessment monitor: Plan: No further episodes of ventricular [...] signed by Barbara Rivero MD> 10/12/22 1420 [facility] Work Phone: 1(121) 440-440003-20-2023 Progress note Author Rubénkip Tatum [facility] October 12, 2022 10:00am Note Date/Time October 12, 2022 9:5 9am [facility] [address] [place] [address] Cardiology Progress Note Signed Patient: Hector Gaspar SR MR#: [id number] : 1960 Acct:[id number] Age/Sex: 62 / M Adm Date: 3 Loc: Room: [address] [place] [address] Type: ADM IN Attending Dr: Barbara Rivero [...] pacing device. (3) Ventricular tachycardia seen on property assessment monitor: Assessment/Problem Details: Stable no further wide-complex [...] 30 Documented By: Rubén Tatum MD 10/12/22 0986 Signed By: <Electronically signed by Rubén Tatum MD> 10/12/22 1000 [facility] Work Phone: 1(577) 579-481703-19-2023 Progress note Author Barbara Rivero [facility] October 11, 2022 11:24am Note Date/Time October 11, 2022 11: 15am [facility] [address] [place] [address] Hospitalist Progress Note Signed Patient: Hector Gaspar SR MR#: [id number] : 1960 Acct:[id number] Age/Sex: 62 / M Adm Date: 3 Loc: 4 Room: [address] [place] [address] Type: ADM IN Attending Dr: Barbara Rivero [...] smoking cessation. (3) Ventricular tachycardia seen on property assessment monitor: Plan: Patient given potassium and magnesium [...] <Electronically signed by Barbara Rivero MD> 10/11/22 1128 [facility] Work Phone: 1(120) 663-774503-19-2023 Progress note Author Rubén Tatum [facility] October 11, 2022 9:41am Note Date/Time October 11, 2022 9:3 3am [facility] [address] [place] [address] Cardiology Progress Note Signed Patient: Hector Gaspar SR MR#: [id number] : 1960 Acct:[id number] Age/Sex: 62 / M Adm Date: 3 Loc: 4 Room: [address] [place] [address] Type: ADM IN Attending Dr: Barbara Rivero [...] % (Auto) 63.8 Lymph % (Auto) 21.8 [place] % (Auto) 10.2 Eos % (Auto) 3.7 Baso % (Auto) 0.5 Nucleat RBC Rel Count 0.1 Neut # (Auto) 4.2 Lymph # (Auto) 1.4 [place] # (Auto) 0.7 Eos # (Auto) 0.2 [...] MPV Neut % (Auto) Lymph % (Auto) [place] % (Auto) Eos % (Auto) Baso % (Auto) Nucleat RBC Rel Count Neut # (Auto) Lymph # (Auto) [place] # (Auto) Eos # (Auto) Baso # [...] AV node (3) Ventricular tachycardia seen on property assessment monitor: Assessment/Problem Details: Not entirely certain that [...] By: <Electronically signed by Rubén Tatum MD> 10/11/2241 [facility] Work Phone: 1(757) 504-342003-18-2023 Progress note Author Barbara Rivero [facility] October 10, 2022 1:33pm Note Date/Time October 10, 2022 1:3 3pm [facility] [address] [place] [address] Event Note Signed Patient: Hector Gaspar MR#: [id number] : 1960 Acct:[id number] Age/Sex: 62 / M Adm Date: 3 Loc: Room: [address] [place] [address] Type: ADM IN Attending Dr: Barbara Rivero [...] <Electronically signed by Barbara Rivero MD> 10/10/22 6643 [facility] Work Phone: 1(371) 453-659703-18-2023 History of Present illness Narrative* Patient presents to the office ambulatory with steady gait. * This is initial in clinic follow-up at [facility]. * October 10, 2022 transferred to [facility] from [facility] d/t NSTEMI. Managed by [...] medication regimen. He denies medication side effects. [facility] 250 DO Work Phone: 1(761) 627-770803-18-2023 Procedure [facility]03-18-2023 Procedure [facility]03-18-2023 Consult note Author Rubén Tatum [facility] October 10, 2022 9:54am Note Date/Time October 10, 2022 9:5 1am [facility] [address] [place] [address] Cardiology Consult Note Signed Patient: Hector Gaspar SR MR#: [id number] : 1960 Acct:[id number] Age/Sex: 62 / M Adm Date: 3 Loc: 3T Room: [address] [place] [address] Type: ADM IN Attending Dr: Barbara Rivero MD Copies to: MD Barbara Barry MD Stephen M Tann, MD~ Cardiology HPI History of Present Illness Consult Date: 10/10/22 Reason for Consult: Nausea, non-STEMI HPI: Mr. Gaspar is a 62 year old male with multiple cardiac risk factors but no known prior coronary heart disease who presented to [place] emergency department lastnight complaining of nausea x2 [...] consistent nausea ever since. He presented to [place] emergency department last evening with these complaints. In the ER at [place] ECG showed Q waves in the inferolateral [...] trend upward to 6000 and then greater [id number]. Echocardiogram at bedside this morning shows normal [...] Lymph # (Auto) 1.4 1.4 (1.00-4.8) x10E3/uL [place] # (Auto) 0.6 0.6 (0.0-0.8) x10E3/uL Eos [...] Dysrhythmias Sinus rhythms and dysrhythmias: sinus rhythm NM, pacemaker, normal Myocardial infarction: inferior NM (old age indeterminate) and lateral NM (acuteor recent) A&P - Cardiology (1) NSTEMI [...] signed by Rubén Tatum MD> 10/10/22 0954 [facility] Work Phone: [phone]) [phone] History and physical note Author Galo Dent [facility] October 10, 2022 7:28am Note Date/Time October 10, 2022 7:2 8am [facility] [address] [place] [address] Hospitalist H&P Signed Patient: Hector Gaspar SR MR#: [id number] : 1960 Acct:[id number] Age/Sex: 62 / M Adm Date: 3 Loc: 3T Room: [address] [place] [address] Type: ADM IN Attending Dr: Barbara Rivero MD Copies to: MD Barbara Barry MD Mushtaq Mahmood, MD~ HPI DATE OF EXAMINATION: 10/10/22 CHIEF COMPLAINT: Non-ST elevation NM HISTORY OF PRESENT ILLNESS: Patient is a 62-year-old gentleman with history of hypertension, heavy smoking about 1-1/2 pack for 45 years, COPD, strong family history of coronary artery disease, came to us from [place] emergency department last night. Patient presented to [...] The ER physician did talk to the entry clerk here in [facility]. Patient was started on heparin drip, nitro patch was applied. He was sent to our hospital. Upon arrival in the [facility] patient complained about headache. Nitropatch was removed. [...] % (Auto) 27.5 % (.) 10/10/22 06:10 [place] % (Auto) 11.4 % (.) 10/10/22 06:10 Eos % (Auto) 4.4 % (.) 10/10/22 06:10 Baso % (Auto) 0.6 % (.) 10/10/22 06:10 Nucleat RBC Rel Count 0.1 /100 WBC (0-0.5) 10/10/22 06:10 Neut # (Auto) 2.9 x10E3/uL (1.8-7.7) 10/10/22 06:10 Lymph # (Auto) 1.4 x10E3/uL (1.00-4.8) 10/10/22 06:10 [place] # (Auto) 0.6 x10E3/uL (0.0-0.8) 10/10/22 06:10 [...] heartcath by cardiology today. I have consulted [facility] heart. He was offered nicotine [...] cigarette smoking. Documented By: Galo Dent MD 10/10/22718 Signed By: <Electronically signed by Galo Dent MD> 10/10/22727 [facility] Work Phone: [phone]) 794-744302-15-2023 Evaluation note* Encounter Date Diagnosis Assessment Notes [...] in office today. Prior medical notes from [facility] and history have been reviewed. At [...] any surgical interventions. Tobacco cessation program at [facility] has been recommended and offered as well as the national Quitline 0-064-LMCE-NOW. We have discussed pharmacologic treatment including nicotine replacement therapy which can lead to a positive nicotine test as well as nicotine free medications both of which will need to be managed by their PCP. We have provided handout for the [facility] Tobacco Cessation Program. This discussion was limited to 5 minutes. Aug, Other See orders for this visit as documented in the electronic medical record. [facility] Other 01-19-2023 Evaluation note* Encounter Date Diagnosis Assessment Notes Treatment Notes Treatment Clinical Notes Jul, Chronic obstructive pulmonary disease with acute exacerbation (ICD-10 - J44.1) Discussed diagnosis with patient. Medication profile and possible SE reviewed with patient. Take as directed. Keep appt w Dr. Castillo on 08/31. Notify office if not improving or worsening. Patient verbalizes understanding and agrees to treatment plan. [facility] Other 01-05-2023 Evaluation note* Encounter Date Diagnosis Assessment Notes Treatment Notes Treatment Clinical Notes Jul, Chronic obstructive pulmonary disease with acute exacerbation (ICD-10 - J44.1) [facility] Other Discharge summary Author Barbara Rivero [facility] October 13, 2022 2:14pm Note Date/Time October 13, 2022 2:0 9pm [facility] [address] [place] [address] Discharge Summary Signed Patient: Hector Gaspar SR MR#: [id number] : 1960 Acct:[id number] Age/Sex: 62 / M Adm Date: 3 Loc: Room: [address] [place] [address]: Barbara Rivero MD Copies to: [...] transferred from outside facility for non-ST elevated NM. He was started on heparin drip as [...] doctor or pharmacist, without first calling the entry clerk who implanted the stent. If you require [...] weight lifting, stair steppers, etc. until the entry clerk approves these activities. Check with the entry clerk on your first follow-up visit. CALL YOUR PHYSICIAN at [phone]: -If bleeding should occur from the catheter insertion site- apply pressure to the site then immediately call us. -Report any fever, redness, drainage, increased swelling, or firmness at the catheter insertion site. Some bruising or slight swelling may be present at thetime of discharge. -Should arm or leg become cold, numb, white, or blue, contact the entry clerk immediately. -IF you should experience episodes of [...] is recommended. Please call Central Scheduling at [phone] to schedule your appointment.] The attending entry clerk or [facility] nurse clinician should provide you with specific instructions regarding activity, diet, medications, and further follow up for you. Follow the medication instructions provided on your discharge. If the dosages and instructions on this sheet differ from the dosage and instructions on the bottle, follow the instructions on the bottle. [facility] is not responsible for incorrect prescription information [...] BY MOUTH EVERY DAY Other Ambulatory Orders: DENTAL APPLIANCE REPAIRER polysom procedure (Routine) Timeframe: 1 Week Location: Determined by Patient Ordered By: Barbara Rivero Follow Up: [facility] Sleep Lab [Outside] (Left message with [facility] regarding need for outpatient sleep study. Please call office if you do not hear from them in 24 hours. An order for the sleep study has been sent electronically. ) Janine Faustin APRN [Nurse Practitioner] - 03/29/23 3:00 pm (Follow-up withCardiology. ) Brock Modi MD [Primary Care Provider] - 10/16/22 10:00 am (Follow-up with your Primary Care Provider, call office to reschedule if needed. ) Documented By: Barbara Rivero MD 10/13/22 1406 Signed By: <Electronically signed by Barbara Rievro MD> 10/13/22 1414 [facility] Work Phone: Evaluation noteNo assessment information available [facility] Work Phone: Evaluation noteNo InformationNort Bizak Other Evalubyfgf note* Diagnosis Onset Date Resolution Status COPD (chronic obstructive pulmonary disease) acute Heart block AV complete acut e Hypertension acute Hypoxemia acute NSTEMI (non-ST elevated myocardial infarction) acute Sleep apnea in adult acute Tobacco abuse acute Ventricular tachycardia seen on property assessment monitor acute [facility] Work Phone: Evaluation note* Diagnosis Abdominal aortic aneurysm (AAA) without rupture, unspecified part (CMS-HCC)- Primary Obstructive chronic bronchitis with exacerbation (CMS-HCC) Obstructive chronic bronchitis with exacerbation Obesity with body mass index (BMI) of 30.0 to 39.9 Chronic obstructive pulmonary disease, unspecified COPD type (CMS-HCC) documented in this encounter [facility] SystemEvaluation note* Diagnosis Abdominal aortic aneurysm (AAA) without rupture, unspecified part (CMS-HCC)- Primary Obstructive chronic bronchitis with exacerbation (CMS-HCC) Obstructive chronic bronchitis with exacerbation Obesity with body mass index (BMI) of 30.0 to 39.9 documented in this encounter [facility] SystemEvaluation note* Diagnosis Abdominal aortic aneurysm (AAA) without rupture, unspecified part (CMS-HCC)- Primary Obstructive chronic bronchitis with exacerbation (CMS-HCC) Obstructive chronic bronchitis with exacerbation Obesity with body mass index (BMI) of 30.0 to 39.9 documented in this encounter [facility] SystemEvaluation note* Diagnosis Atherosclerosis of chinik coronary artery of chinik heart without angina pectoris Essential hypertension, benign Mixed hyperlipidemia Ischemic cardiomyopathy Other specified forms of chronic ischemic heart disease Past myocardial infarction Old myocardial infarction Moderate chronic obstructive pulmonary disease (CMS/HCC) Chronic airway obstruction, not elsewhere classified Obesity (BMI 35.0-39.9 without comorbidity) Current smoker documented in this encounter [facility] Work Phone: Evaluation note* Diagnosis Onset Date Resolution Status COPD (chronic obstructive pulmonary disease) acute Situational anxiety acute [facility] Work Phone: Evaluation note* Diagnosis Onset Date Resolution Status COPD (chronic obstructive pulmonary disease) acute Situational anxiety acute Hypertension acute Coronary artery disease invo lving chinik heart without angina pectoris acute Hypertension acute Situational anxiety acute [facility] Work Phone: Evaluation note* Diagnosis Onset Date Resolution Status Hypertension acute Coronary artery disease invo lving chinik heart without angina pectoris acute Hypertension acute Situational anxiety acute Right knee pain acute Right leg pain acute [facility] Work Phone: Evaluation note* Diagnosis Onset Date Resolution Status Right knee pain acute Right leg pain acute [facility] Work Phone: History general Narrative - [...] History appendectomy 05/02/18 Hospitalization History SEE SURGICAL [place] Other Hisssoj general Narrative - Reported* Type Description Date [...] 3 Stents 09/2022 Hospitalization History SEE SURGICAL [place] Other Hisdceo general Narrative - Reported* Type Description Date [...] 3 Stents 09/2022 Hospitalization History SEE SURGICAL [place] Other History general Narrative - Reported* Type [...] History SEE SURGICAL HX Hospitalization History pneumonia [facility] Other InstructionsNot on filedocumented in this encounter [employer] SystemInstructionsNot on filedocumented in this encounter [employer] SystemInstructionsNot on filedocumented in this encounter [facility] [employer] SystemReason for referral (narrative)* Consultation (Routine) - Authorized Specialty Diagnoses / Procedures Referred By Contac t Referred To Contact Cardiology Diagnoses Atherosclerosis of chinik coronary artery of chinik heart without angina pectoris Procedures Follow Up In Cardiology Alok Armijo DO [address] [facility] [address], [place] [id number] Alok Armijo DO [address] [facility] [address], [place] [id number] Referral ID Status Reason Start Date Expiration Date V isits Requested Visits Authorized [id number] Authorized 09/14/2023 09/13/2024 1 1 [facility] Work Phone: Chief Complaint and Reason for Visit Chief Complaint M25.561 Elevated Troponin Reason for Visit COPD (chronic obstru ctive pulmonary disease) Heart block AV complete Hypertension Hypoxemia NSTEMI (non-ST elevated myocardial infarction) Sleep apnea in adult Tobacco abuse Ventricular tachycardia seen on property assessment monitor Chief Complaint M25.561 Elevated Troponin I25.10 I10 E78.2 Reason for Visit COPD (chronic obstru ctive pulmonary disease) Heart block AV complete Hypertension Hypoxemia NSTEMI (non-ST elevated myocardial infarction) Sleep apnea in adult Tobacco abuse Ventricular tachycardia seen on property assessment monitor Chief Complaint M25.561 Elevated Troponin I25.10 I10 E78.2 j98.11 Reason for Visit COPD (chronic obstru ctive pulmonary disease) Heart block AV complete Hypertension Hypoxemia NSTEMI (non-ST elevated myocardial infarction) Sleep apnea in adult Tobacco abuse Ventricular tachycardia seen on property assessment monitor Chief Complaint Tbh Amb Documentation Breathing Issues Dizziness Reason for Visit COPD (chronic obstru ctive pulmonary disease) Situational anxiety Chief Complaint Amb Documentation Breathing Issues Dizziness 1 month follow up pain in right calf Reason for Visit COPD (chronic obstru ctive pulmonary disease) Situational anxiety Hypertension Coronary artery disease involving chinik heart without angina pectoris Hypertension Situational anxiety Chief Complaint Dizziness 1 month follow up pain in right calf right leg swollen and painful Reason for Visit Hypertension Coronary artery disease involving chinik heart without angina pectoris Hypertension Situational anxiety Right knee pain Right leg pain Chief Complaint pain in right calf right leg swollen and painful 3 month follow up Reason for Visit Right knee pain Right leg pain Chief Complaint Amb Documentation CC Adult Risk Stratification 3 month f/u-HIGH RISK Family History No Family History Records Found [...] Date/ Time Advance Directives No August 2:30pm Advance Directive Response Recorded Date/ Time Advance Directives No August 1:30pm Chief Complaint Hospital f/u: 'doing good'* HECTOR GASPAR is being seen for pre-operative clearance. * 62-year-old gentleman here for preoperative risk assessment and clearance at the request of Dr. Campos for endobronchial biopsy to be performed in mid December. 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 * Based on current guidelines and most recent literature, this is an appropriate indication to withdraw antiplatelet therapy and proceed with urgent endobronchial biopsy for diagnostic purposes, notably his [place] stents that were recently placed have have [...] aortic aneurysm (AAA) without rupture, unspecified part ([facility]) Obstructive chronic bronchitis with exacerbation ([facility]) Obesity with body mass index (BMI) of 30.0 to 39.9 Chronic obstructive pulmonary disease, unspecified COPD type ([facility]) Procedures CT angiogram abdomen and pelvis Christopher Sewell MD [address], [address] [address] Referral ID Status Reason Start Date Expiration Date V isits Requested Visits Authorized [id number] Pending Review 08/22/2023 08/21/2024 1 1 Reason *FU 07/28 5cm AAA - report scanned. Diagnosis 1 Abdominal aortic ane urysm (AAA) without rupture, unspecified part (I71.40) Referral Organization [facility] Augustin barber Referring Provider First Name Brock Referring Provider Last Name Ly Referring Provider Specialty Family [facility] Referred Organization [facility] Referred Provider Christopher Sewell Referred Address [address], [place],[address] Referred Provider Specialty Vascular Mir michelle Referral Priority Routine General Notes Helen Mendez 09:16:43 AM >received today, attachments made, ntoes locked, referral faxed Clinical Notes p: [id number] f: [id number] Additional Source Comments Care Teams (unrecognized sec tion and content) Team Status: Active Member Role Status Dates Brock Modi MD Primary Care Provider Active Team Status: Active Member Role Status Dates Brock Modi MD Primary Care Provider Active Start: May 07, 2024 Oralia Hanson PA-C Attending Provider Active Start : May 07, 2024 Team Status: Active Member Role Status Dates Brock Modi MD Primary Care Provider Active Start: May 08, 2024 Viral Yang DO Attending Provider Active Sta rt: May 08, 2024 Team Status: Active Member Role Status Dates Brock Modi MD Primary Care Provider Active Start: May 11, 2024 Alice Mckee CMA Attending Provider Active Start: May 11, 2024 Team Status: Active Member Role Status Dates Brock Modi MD Primary Care Provide r, Attending Provider Active Start: May 26, 2024 Team Status: Inactive Member Role Status Dates Brock Modi MD Primary Care Provide r, Attending Provider Active Start: May 29, 2024 End: May 29, 2024 Team Status: Inactive Member Role Status Dates Brock Modi MD Primary Care Provider Active Start: December 13, 2023 End: December 13, 2023 Brenda Jolley APRN [employer]-C Attending Provider Act carol Start: December 13, [...] Care Provider Active Start: October 04, 2023 Barbie Smith , RMA Attending Provider Active Start : October 04, [...] Active Adi Campos MD Attending Provider Active Enamel Sprayer Relationship Specialty Start Date End Date Brock Modi MD [address] [place] [address] PCP - General Family Medicine 09/03/21 Enamel Sprayer Relationship Specialty Start Date End Date Brock Modi MD [address] [place] [address] PCP - General Family Medicine 09/03/21 Enamel Sprayer Relationship Specialty Start Date End Date Brock Modi MD [address] [place] [address] PCP - General Family Medicine 09/03/21 Enamel Sprayer Relationship Specialty Start Date End Date Brock [...] aortic aneurysm (AAA) without rupture, unspecified part ([facility]) Christopher Sewell MD [address] , [address] [address] Christopher Sewell MD [address] [place] [id number] Referral ID Status Reason Start Date Expiration Date Visits Requested Visits Authorized [id number] Pending Review Specialty Services Required 3 07/21/2024 1 1 US resultTBHsleep apnea discussionrefillAlprazolamRecheck Right Knee* Reason for Visit: * Holter Monitor: * HECTOR is here for the application of a 48 hour Holter monitor. * Ordering Physician: JANINE CUNHA * Diagnosis: CAD SINUS PAUSE * [facility] equipment agreement signed. HECTOR understands monitor is to be returned on: 11-03-22 * Monitor number [id number] applied. * Holter monitor returned and downloaded. messagePulmonary Office NotesRef by Dr. Brock Modi [facility] [place] [facility] HEART ATTACKRight Knee PainCheck Upnot feeling back to normal- discussion (unrecognized sect ion and content) No Status Records FoundNo Status Records FoundNo Status Records FoundNo Status Records FoundNo Status Records FoundNo Status Records FoundNo Status Records Found INFORMATION SOURCE (unrecogn ized section and content) DATE CREATED AUTHOR 11/07/2022 [facility] DATE CREATED AUTHOR AUTHOR'S ORGANIZ ATION 01/02/2023 [employer] DATE CREATED AUTHOR AUTHOR'S ORGANIZ ATION 04/09/2023 [facility] DATE CREATED AUTHOR AUTHOR'S ORGANIZ ATION 08/08/2023 [facility] DATE CREATED AUTHOR AUTHOR'S ORGANIZ ATION 11/12/2023 [facility] DATE CREATED AUTHOR AUTHOR'S ORGANIZ ATION 03/09/2024 [facility] DATE CREATED AUTHOR AUTHOR'S ORGANIZ ATION 06/12/2024 [facility] FOR RECORDS PERTAINING TO PATIENTS WHO ARE [...] BE BASED ON THE PRIMARY CLINICAL RECORDS. [facility] [employer] [facility]. provides no warranty or guarantee of the accuracy or completeness of information in this document.
[2024-07-20 10:03] LABS: Basophils Percent Auto 0.7 % (0.2-2.0); Eosinophils Absolute Auto 0.2 10^3/uL (0.0-0.7); Eosinophils Percent Auto 3.6 % (0.9-7.0); Hematocrit 41.6 % (42.0-54.0); Hemoglobin 13.8 g/dL (14.0-18.0); Immature Granulocytes Abs Auto 0.03 10^3/uL (0.00-0.03); Immature Granulocytes Pct Auto 0.5 % (0.0-0.5); Lymphocytes Absolute Auto 1.8 10^3/uL (1.2-3.8); Lymphocytes Percent Auto 31.1 % (20.5-60.0); Mean Corpuscular HGB Conc 33.2 g/dL (29.9-35.2); Mean Corpuscular Hemoglobin 30.1 pg (25.9-34.0); Mean Corpuscular Volume 90.6 fL (80.0-94.0); Mean Platelet Volume 9.3 fL (9.5-13.5); Monocytes Absolute Auto 0.8 10^3/uL (0.3-0.8); Monocytes Percent Auto 13.5 % (1.7-12.0); Neutrophils Percent Auto 50.6 % (43.0-75.0); Platelet Count 237 10^3/uL (150-450); Red Blood Count 4.59 10^6/uL (4.70-6.10); Red Cell Distribution Width 12.5 % (11.0-15.0); White Blood Count 5.9 10^3/uL (4.0-11.0)
[2024-07-20 10:48] LABS: Alanine Aminotransferase 34 U/L (16-63); Albumin Level 3.6 g/dL (3.4-5.0); Alkaline Phosphatase 81 U/L (46-116); Anion Gap 12.7; Aspartate Amino Transferase 18 U/L (15-37); BUN Creatinine Ratio 18.1; Bilirubin Total 0.4 mg/dL (0.2-1.0); Carbon Dioxide 28.6 mmol/L (21.0-32.0); Chloride 107 mmol/L (98-107); Chol HDL Ratio 3.9; Cholesterol 171 mg/dL (<=200); Estimated GFR (African America >60 (>=60 mL/min/1.73m^2); Estimated GFR (Non-African Ame >60 (>=60 mL/min/1.73m^2); Free T3 2.92 pg/mL (2.18-3.98); Globulin 3.6 g/dL; Glucose 101 mg/dL (74-106); HDL Cholesterol 44 mg/dL (40-60); Potassium 4.3 mmol/L (3.5-5.1); Sodium 144 mmol/L (136-145); Thyroid Stimulating Hormone 3.095 uIU/mL (0.358-3.740); Total Protein 7.2 g/dL (6.4-8.2); Triglycerides 274 mg/dL (<=150); VLDL CHOLESTEROL 54.8 mg/dL
[2024-07-20 10:56] LABS: Prostate Specific Antigen Scrn 0.88 ng/mL (<=4.00)
[2024-07-20 11:48] LABS: Estimated Average Glucose 108 mg/dL; Glycohemoglobin A1C 5.4 % (4.5-6.2)
[2024-07-21 06:07] LABS: Insulin 69.3 uIU/mL (2.6-24.9)
== END 2024-07-20 09:29 | disposition home or self-care (01) ==
LOC: LAB 09:30
PROVIDERS: PCP Family Medicine; Visit Provider Family Medicine
DX: R53.83 Other fatigue (principal); I10 Essential (primary) hypertension; I25.10 Atherosclerotic heart disease of native coronary artery without angina pectoris; E78.00 Pure hypercholesterolemia, unspecified; R73.09 Other abnormal glucose; Z12.12 Encounter for screening for malignant neoplasm of rectum; E03.9 Hypothyroidism, unspecified
CPT/HCPCS: 36415; 80053; 80061; 83036; 83525; 84436; 84443; 84481; 85025; G0103

== ENCOUNTER 2024-07-28 11:12 | Outpatient (OUT) | payer OTHER, SELFPAY ==
[2024-07-30 11:08] LABS: Insulin 33.2 uIU/mL (2.6-24.9)
== END 2024-07-28 11:13 | disposition home or self-care (01) ==
LOC: LAB 11:12
PROVIDERS: PCP Family Medicine; Visit Provider Family Medicine
DX: R89.9 Unspecified abnormal finding in specimens from other organs, systems and tissues (principal)
CPT/HCPCS: 36415; 83525

== ENCOUNTER 2024-08-10 19:04 | Emergency (ER) | payer OTHER, SELFPAY ==
[2024-08-10 19:11] VITALS: BP 169/93; PULSE 85; TEMP 36.4; O2SAT 97; BMI 37.6
--- OUTSIDE RECORDS SUMMARY | 2024-08-10 19:15 | XMS_ITS | CCD ---
Author Organization [facility] CliniSynv Care Team Providers Care Nurse Orthopaedic Name Role Phone DO Wagner Marrufo Attending Provider Brock Modi Unavailable Wagner Marrufo Unavailable DO Wagner Marrufo Attending Provider [phone] MD Brock Modi Primary Care Provider [phone] MD Galo Dent Admit Provider [phone] MD Barbara Rivero Attending Provider Brock Modi Unavailable Unavailable Unavailable Adi Campos Unavailable ZELALEM Faustin Attending Provider [phone] MD Adi Campos Attending Provider [phone] KULDEEP, DR CAR Torres Attending Unavailable KULDEEP, [...] RUBÉN Titus Attending Unavailabl e MALIKA, DR RUBÉN Titus Admitting Unavailabl e LY, DR BROCK [...] & Blurred vision, Comment:nausea and blurred vision [facility] (20 sources) Substance with penicillin structure and antibacterial mechanism of action (substance) Drug allergy Edema, Unknown [facility] Other (20 sources) Pneumococcal 7-Zulma Conj Vacc Drug allergy undefined, Comment:pneumo nococcal 23 [facility] Other (20 sources) Penicillins; Translations: [Penicillins] Propensity to adverse reactions 05-29-20 13 Swelling, [facility] (16 sources) Pneumococcal vaccine; Translations: [PNEUMOCOCCAL VACCINE] Drug Allergy 08-08-19 22 Nausea And Vomiting, Other [facility] (8 sources) Pneumococcal vaccine; Translations: [Pneumococcal Vaccines] Drug Allergy [facility] 250 DO Work Phone: (2 sources) Penicillin Drug Allergy 07-29-19 16 Unknown [facility] Other (2 sources) patient allergy list reviewed by nurse or physicia Propensity to adverse reactions 07-29-19 16 Comment:Done [facility] Other (2 sources) Allergies Reconciled Propensity to adverse reactions Unknown [facility] Other (5 sources) Ciprofloxacin; Translations: [CIPROFLOXACIN HCL] Drug Allergy 08-08-19 22 [facility] (5 sources) pneumococcal 7-valent conjugate to Allergy to substance 10-26-19 24 Comment:pneumo nococcal 23 [facility] Medications Current Medications Medication Drug Class(es) [...] mg tablet Indications: Atherosclerotic heart disease of [place] coronary artery without angina pectoris TAKE 1 [...] Start: 11-12-2022 take 2 tablets by mo [facility] every twenty-four hours predniSONE 20 MG [...] mg capsule Take by mouth. 0 Active [id number] actuat albuterol 0.09 mg/actuat metered dose [...] ventricular tachycardia; Translations: [Ventricular tachycardia seen on alarm security or surveillance monitor] 10-11-2022 Chronic Chronic obstructive pulmonary disease [...] Coronary arteriosclerosis; Translations: [Atherosclerotic heart disease of [place] coronary artery without angina pectoris] Onset: 08-06-2023 [...] 03-16-2019 Chronic Other aftercare (1 source) Other correction (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; Translations: [OTH ALF CURRENT DRUG THERAPY] Onset: 10-13-2022 Episodic Other [...] Basophils (Bld) [#/Vol] 0.0 10 3/uL 0.0-0.1 [facility] Basophils/100 WBC Auto (Bld) on 05-07-2024 Basophils/100 WBC (Bld) 0.6 % 0.2-2.0 [facility] Eosinophils/100 WBC Auto (Bl d)on 05-07-2024 Eosinophils/100 WBC (Bld) 3.8 % 0.9-7.0 [facility] Erythrocyte distribution wid th Auto (RBC) [Ratio]on 05-07-2024 Erythrocyte distribution width (RBC) [Ratio] 12.4 % 11.0-15.0 [facility] Estimated glomerular filtrat ion rate (GFR) non- Americanon 05-07-2024 GFR/1.73 sq M.predicted among non-blacks MDRD (S/P/Bld) [Vol rate/Area] 52 mL/min/{1.73_m2} Low >=60 mL/min/1.7 3m 2 [facility] Globulin Calc (S) [Mass/Vol] on 05-07-2024 Globulin (S) [Mass/Vol] 3.7 g/dL [facility] Hematocrit Auto (Bld) [Volum e fraction]on 05-07-2024 Hematocrit (Bld) [Volume fraction] 39.8 % Low 42.0-54.0 [facility] Hemoglobin [Mass/volume] in Bloodon 05-07-2024 Hemoglobin (Bld) [Mass/Vol] 13.8 g/dL Low 14.0-18.0 [facility] INR in Platelet poor plasma by Coagulation assayon 05-07-2024 INR Coag (PPP) [Relative time] 0.96 {INR} [facility] Comment on above: DESIRED INR:2.0-3.0 CONDITIONS NOT LISTED BELOW2.5-3.5 FOR PROSTHETIC HEART VALVE REPLACEMENT2.5-3.5 RECURRENT THROMBOSIS Laboratory - Chemistry and C hemistry - challengeon 05-07-2024 Albumin [Mass/Vol] 3.7 g/dL 3.4-5.0 [facility] ALP [Catalytic activity/Vol] 67 U/L 46-116 [facility] ALT [Catalytic activity/Vol] 26 U/L 16-63 [facility] AST [Catalytic activity/Vol] 19 U/L 15-37 [facility] Bilirubin [Mass/Vol] 0.4 mg/dL 0.2-1.0 [facility] Calcium [Mass/Vol] 9.3 mg/dL 8.5-10.1 [facility] Chloride [Moles/Vol] 104 mmol/L 98-107 [facility] CO2 [Moles/Vol] 27.0 mmol/L 21.0-32.0 [facility] Creatinine [Mass/Vol] 1.38 mg/dL High 0.70-1.30 [facility] GFR/1.73 sq M.predicted MDRD (S/P/Bld) [Vol rate/Area] mL/min/{1.73_m2} >=60 mL/min/1.7 3m 2 [facility] Glucose [Mass/Vol] 111 mg/dL High 74-106 [facility] Natriuretic peptide B (Bld) [Mass/Vol] 87.0 pg/mL <=900.0 [facility] Potassium [Moles/Vol] 4.1 mmol/L 3.5-5.1 [facility] Protein [Mass/Vol] 7.4 g/dL 6.4-8.2 [facility] Sodium [Moles/Vol] 141 mmol/L 136-145 [facility] Urea nitrogen [Mass/Vol] 18.0 mg/dL 7.0-18.0 [facility] Urea nitrogen/Creatinine [Mass ratio] 13.0 mg/mg [facility] Laboratory - Hematology and Cell countson 05-07-2024 Immature granulocytes/100 WBC (Bld) 0.2 % 0.0-0.5 [facility] Leukocytes [#/volume] correc kal for nucleated erythrocytes in Blood by Automated counon 05-07-2024 WBC corrected for nucl RBC Auto (Bld) [#/Vol] 4.7 10 3/uL 4.0-11.0 [facility] Lymphocytes Auto (Bld) [#/Vo l]on 05-07-2024 Lymphocytes (Bld) [#/Vol] 1.6 10 3/uL 1.2-3.8 [facility] Lymphocytes/100 WBC Auto (Bl d)on 05-07-2024 Lymphocytes/100 WBC (Bld) 34.4 % 20.5-60.0 [facility] MCH Auto (RBC) [Entitic mass ]on 05-07-2024 MCH (RBC) [Entitic mass] 30.9 pg 25.9-34.0 [facility] MCHC Auto (RBC) [Mass/Vol]on 05-07-2024 MCHC (RBC) [Mass/Vol] 34.7 g/dL 29.9-35.2 [facility] MCV Auto (RBC) [Entitic vol] on 05-07-2024 MCV (RBC) [Entitic vol] 89.2 fL 80.0-94.0 [facility] Monocytes Auto (Bld) [#/Vol] on 05-07-2024 Monocytes (Bld) [#/Vol] 0.6 10 3/uL 0.3-0.8 [facility] Monocytes/100 WBC Auto (Bld) on 05-07-2024 Monocytes/100 WBC (Bld) 12.4 % High 1.7-12.0 [facility] Neutrophils Auto (Bld) [#/Vo l]on 05-07-2024 Neutrophils (Bld) [#/Vol] 2.3 10 3/uL 1.4-6.5 [facility] Neutrophils/100 WBC Auto (Bl d)on 05-07-2024 Neutrophils/100 WBC (Bld) 48.6 % 43.0-75.0 [facility] No Panel Informationon 05-07 Eosinophils # (Auto) 0.2 10 3/uL 0.0-0.7 [facility] Immature Granulocyte # (Auto) 0.01 10 3/uL 0.00-0.03 [facility] Troponin I High Sensitivity 15.2 pg/mL 4.0-76.1 [facility] Comment on above: CUT-OFF POINTS HAVE BEEN [...] (Bld) [Entitic vol] 9.4 fL Low 9.5-13.5 [facility] Platelets Auto (Bld) [#/Vol] on 05-07-2024 Platelets (Bld) [#/Vol] 212 10 3/uL 150-450 [facility] Prothrombin time (PT)on 04-25 PT Coag (PPP) [Time] 10.2 s 9.0-11.6 [facility] RBC Auto (Bld) [#/Vol]on RBC (Bld) [#/Vol] 4.46 10 6/uL Low 4.70-6.10 [facility] Serum or plasma albumin/glob ulin mass ratioon 05-07-2024 Albumin/Globulin [Mass ratio] 1.0 {ratio} [facility] Serum or plasma anion gap de terminationon 05-07-2024 Anion gap [Moles/Vol] 14.1 mmol/L [facility] CT CTA ABD AND PELVISon 02-23 CT [...] Marie MD on 03/07/2024 12:12 PM Normal [facility] Basophils Auto (Bld) [#/Vol] on 10-09-2023 Basophils (Bld) [#/Vol] 0.0 10 3/uL 0.0-0.1 [facility] Basophils/100 WBC Auto (Bld) on 10-09-2023 Basophils/100 WBC (Bld) 0.6 % 0.2-2.0 [facility] Eosinophils/100 WBC Auto (Bl d)on 10-09-2023 Eosinophils/100 WBC (Bld) 3.9 % 0.9-7.0 [facility] Erythrocyte distribution wid th Auto (RBC) [Ratio]on 10-09-2023 Erythrocyte distribution width (RBC) [Ratio] 13.2 % 11.0-15.0 [facility] Estimated glomerular filtrat ion rate (GFR) non- Americanon 10-09-2023 GFR/1.73 sq M.predicted among non-blacks MDRD (S/P/Bld) [Vol rate/Area] 45 mL/min/{1.73_m2} >=60 [facility] Globulin Calc (S) [Mass/Vol] on 10-09-2023 Globulin (S) [Mass/Vol] 3.4 g/dL [facility] Hematocrit Auto (Bld) [Volum e fraction]on 10-09-2023 Hematocrit (Bld) [Volume fraction] 36.4 % 42.0-54.0 [facility] Hemoglobin [Mass/volume] in Bloodon 10-09-2023 Hemoglobin (Bld) [Mass/Vol] 12.1 g/dL 14.0-18.0 [facility] Laboratory - Chemistry and C hemistry - challengeon 10-09-2023 Albumin [Mass/Vol] 3.5 g/dL 3.4-5.0 [facility] ALP [Catalytic activity/Vol] 64 U/L 46-116 [facility] ALT [Catalytic activity/Vol] 35 U/L 16-63 [facility] AST [Catalytic activity/Vol] 24 U/L 15-37 [facility] Bilirubin [Mass/Vol] 0.4 mg/dL 0.2-1.0 [facility] Calcium [Mass/Vol] 9.0 mg/dL 8.5-10.1 [facility] Chloride [Moles/Vol] 102 mmol/L 98-107 [facility] CO2 [Moles/Vol] 27.8 mmol/L 21.0-32.0 [facility] Creatinine [Mass/Vol] 1.58 mg/dL 0.70-1.30 [facility] GFR/1.73 sq M.predicted MDRD (S/P/Bld) [Vol rate/Area] 54 mL/min/{1.73_m2} >=60 [facility] Glucose [Mass/Vol] 96 mg/dL 74-106 [facility] Potassium [Moles/Vol] 4.3 mmol/L 3.5-5.1 [facility] Protein [Mass/Vol] 6.9 g/dL 6.4-8.2 [facility] Sodium [Moles/Vol] 136 mmol/L 136-145 [facility] Urea nitrogen [Mass/Vol] 26.0 mg/dL 7.0-18.0 [facility] Urea nitrogen/Creatinine [Mass ratio] 16.5 mg/mg [facility] Laboratory - Hematology and Cell countson 10-09-2023 Immature granulocytes/100 WBC (Bld) 0.6 % 0.0-0.5 [facility] Leukocytes [#/volume] correc kal for nucleated erythrocytes in Blood by Automated counon 10-09-2023 WBC corrected for nucl RBC Auto (Bld) [#/Vol] 5.2 10 3/uL 4.0-11.0 [facility] Lymphocytes Auto (Bld) [#/Vo l]on 10-09-2023 Lymphocytes (Bld) [#/Vol] 1.5 10 3/uL 1.2-3.8 [facility] Lymphocytes/100 WBC Auto (Bl d)on 10-09-2023 Lymphocytes/100 WBC (Bld) 28.9 % 20.5-60.0 [facility] MCH Auto (RBC) [Entitic mass ]on 10-09-2023 MCH (RBC) [Entitic mass] 30.9 pg 25.9-34.0 [facility] MCHC Auto (RBC) [Mass/Vol]on 10-09-2023 MCHC (RBC) [Mass/Vol] 33.2 g/dL 29.9-35.2 [facility] MCV Auto (RBC) [Entitic vol] on 10-09-2023 MCV (RBC) [Entitic vol] 93.1 fL 80.0-94.0 [facility] Monocytes Auto (Bld) [#/Vol] on 10-09-2023 Monocytes (Bld) [#/Vol] 0.8 10 3/uL 0.3-0.8 [facility] Monocytes/100 WBC Auto (Bld) on 10-09-2023 Monocytes/100 WBC (Bld) 16.1 % 1.7-12.0 [facility] Neutrophils Auto (Bld) [#/Vo l]on 10-09-2023 Neutrophils (Bld) [#/Vol] 2.6 10 3/uL 1.4-6.5 [facility] Neutrophils/100 WBC Auto (Bl d)on 10-09-2023 Neutrophils/100 WBC (Bld) 49.9 % 43.0-75.0 [facility] No Panel Informationon 10-08 Eosinophils # (Auto) 0.2 10 3/uL 0.0-0.7 [facility] Immature Granulocyte # (Auto) 0.03 10 3/uL 0.00-0.03 [facility] Platelet mean volume Auto (B ld) [Entitic vol]on 10-09-2023 Platelet mean volume (Bld) [Entitic vol] 9.4 fL 9.5-13.5 [facility] Platelets Auto (Bld) [#/Vol] on 10-09-2023 Platelets (Bld) [#/Vol] 228 10 3/uL 150-450 [facility] RBC Auto (Bld) [#/Vol]on RBC (Bld) [#/Vol] 3.91 10 6/uL 4.70-6.10 [facility] Serum or plasma albumin/glob ulin mass ratioon 10-09-2023 Albumin/Globulin [Mass ratio] 1.0 {ratio} [facility] Serum or plasma anion gap de terminationon 10-09-2023 Anion gap [Moles/Vol] 10.5 mmol/L [facility] CT CTA ABD AND PELVISon 09-23 [...] Marie MD on 10/04/2023 3:36 PM Normal [facility] Office Visit (Cardiology)on 12-24-2022 Follow-up visit Diagnoses/Problems Assessed Coronary artery disease involving [place] coronary artery of [place] heart without angina pectoris (414.01) (I25.10) Preoperative [...] we can help. You may also call 5-091-DCEJ-NOW for free resources and assistance.; Status:Complete - [...] December. 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 Normal Absolute Antibody Tobacco Screening.on 023 Fall risk assessment c) Not medically indicated [facility] 250 DO Work Phone: Tobacco use status [facility] a) Yes [facility] 250 DO Work Phone: Tobacco Screening. Yes [facility] 250 DO Work Phone: Cardiovasc Arrhythmia Result son 11-02-2022 Cardiovasc Arrhythmia Results Reason For Visit Reason for Visit: Holter Monitor: HECTOR is here for the application of a 48 hour Holter monitor. Ordering Physician: JANINE CUNHA Diagnosis: CAD SINUS PAUSE [facility] equipment agreement signed. HECTOR understands monitor is to be returned on: 11-03-22 Monitor number [id number] applied. Holter monitor returned and downloaded. Procedure [...] symptomatic Diagnosis/Problems Assessed Coronary artery disease involving [place] coronary artery of [place] heart without angina pectoris (414.01) (I25.10) Sinus pause (426.6) (I45.5) Future Appointments Date/TimeProviderSpecialt ySite 01/19/2023 02:30 Alok Kirkland DOCardiology703 [facility] 2 Jonathan 250 DO Signatures Electronically signed by : Mallory Fan MA; Nov 02 2022 2:10PM EST (Author) Electronically signed by : Mohsen Gonsalves MD; Nov 08 2022 5:34PM EST (Author) Normal [facility] Calcium [Mass/volume] in Ser um or PlasmaOrdered By: Janine Cunha on 10-28-2022 Calcium [Mass/Vol] 9.5 mg/dL 8.6-10.3 [facility] Carbon dioxide, total [Moles /volume] in Serum or PlasmaOrdered By: Janine Cunha on 10-28-2022 CO2 [Moles/Vol] 25.8 mmol/L 21.0-31.0 [facility] Chloride [Moles/volume] in S lisa or PlasmaOrdered By: Janine Cunha on 10-28-2022 Chloride [Moles/Vol] 107 mmol/L 98-107 [facility] Creatinine [Mass/volume] in Serum or PlasmaOrdered By: Janine Cunha on 10-28-2022 Creatinine [Mass/Vol] 1.16 mg/dL 0.70-1.30 [facility] Glucose [Mass/volume] in Ser um or PlasmaOrdered By: Janine Cunha on 10-28-2022 Glucose [Mass/Vol] 100 mg/dL 70-100 [facility] Comment on above: ADA recommended refe rence rangeRandom Glucose Reference Range is dependent on time and content of last meal. Glucose of more than 200 mg/dL in a nonstressed, ambulatory subject supports the diagnosis of Diabetes Mellitus. No Panel InformationOrdered By: Janine Cunha on 10-28-2022 Estimated GFR (CKD-EPI) > 60.0 mL/Min [facility] Creatinine Clearance (Chem N/A [facility] No Panel Informationon 10-28 > 60.0 Normal [facility] 600 DO Work Phone: 11.6\S\11.6 Normal 6.0-15.0 [facility] 600 DO Work Phone: 9.5\S\9.5 Normal 8.6-10.3 [facility] 600 DO Work Phone: Comment on above: PERFORMED BY:[facility] [place], [place] [id number] MEDICAL DIRECTORJANETTE DE LA FUENTE M.D. 25.8\S\25.8 Normal 21.0-31.0 [facility] 600 DO Work Phone: 107\S\107 Normal 98-107 [facility] 600 DO Work Phone: 4.4\S\4.4 Normal 3.5-5.1 [facility] [place] 600 DO Work Phone: 140\S\140 Normal 136-145 [facility] [place] 600 DO Work Phone: 1.16\S\1.16 Normal 0.70-1.30 [facility] [place] 600 DO Work Phone: 27\S\27 above high threshold 7-25 [facility] [place] 600 DO Work Phone: 100\S\100 Normal 70-100 [facility] DO Work Phone: Comment on above: Random Glucose Refer ence Range is dependent on time and content of last meal. Glucose of more than 200 mg/dL in a nonstressed, ambulatory subject supports the diagnosis of Diabetes Mellitus. ADA recommended reference range Potassium [Moles/volume] in Serum or PlasmaOrdered By: Janine Cunha on 10-28-2022 Potassium [Moles/Vol] 4.4 mmol/L 3.5-5.1 [facility] Serum or plasma anion gap de terminationOrdered By: Janine Cunha on 10-28-2022 Anion gap [Moles/Vol] 11.6 mmol/L 6.0-15.0 [facility] Sodium [Moles/volume] in Ser um or PlasmaOrdered By: Janine Cunha on 10-28-2022 Sodium [Moles/Vol] 140 mmol/L 136-145 [facility] Urea nitrogen [Mass/volume] in Serum or PlasmaOrdered By: Janine Cunha on 10-28-2022 Urea nitrogen [Mass/Vol] 27 mg/dL 7-25 [facility] Tobacco Screening.on 023 Adult depression screening assessment No [facility] [facility] 250 DO Work Phone: Fall risk assessment a) No falls within the last year [facility] 250 DO Work Phone: Tobacco use status [facility] a) Yes [facility] 250 DO Work Phone: Tobacco Screening. Yes [facility] 250 DO Work Phone: Calcium [Mass/volume] in Ser um or PlasmaOrdered By: Rubén Tatum on 10-12-2022 Calcium [Mass/Vol] 9.0 mg/dL 8.6-10.3 [facility] Carbon dioxide, total [Moles /volume] in Serum or PlasmaOrdered By: Rubén Tatum on 10-12-2022 CO2 [Moles/Vol] 25.2 mmol/L 21.0-31.0 [facility] Chloride [Moles/volume] in S lisa or PlasmaOrdered By: Rubén Tatum on 10-12-2022 Chloride [Moles/Vol] 107 mmol/L 98-107 [facility] Creatinine [Mass/volume] in Serum or PlasmaOrdered By: Rubén Tatum on 10-12-2022 Creatinine [Mass/Vol] 1.09 mg/dL 0.70-1.30 [facility] Glucose [Mass/volume] in Ser um or PlasmaOrdered By: Rubén Tatum on 10-12-2022 Glucose [Mass/Vol] 100 mg/dL 74-109 [facility] Comment on above: ADA recommended refe rence rangeRandom Glucose Reference Range is dependent on time and content of last meal. Glucose of more than 200 mg/dL in a nonstressed, ambulatory subject supports the diagnosis of Diabetes Mellitus. Laboratory - Chemistry and C hemistry - challengeOrdered By: Rubén Tatum on 10-12-2022 GFR/1.73 sq M.predicted MDRD (S/P/Bld) [Vol rate/Area] mL/min/{1.73_m2} [facility] Magnesium [Mass/volume] in S lisa or PlasmaOrdered By: Rubén Tatum on 10-12-2022 Magnesium [Mass/Vol] 2.2 mg/dL 1.9-2.7 [facility] Natriuretic peptide B [Mass/ Vol]Ordered By: Rubén Tatum on 10-12-2022 Natriuretic peptide B (Bld) [Mass/Vol] 91.0 pg/mL 5-100 [facility] No Panel InformationOrdered By: Rubén Tatum on 10-12-2022 Pharmacy Creatinine Clearance (Chem 79.69 [facility] Potassium [Moles/volume] in Serum or PlasmaOrdered By: Rubén Tatum on 10-12-2022 Potassium [Moles/Vol] 4.2 mmol/L 3.5-5.1 [facility] Serum or plasma anion gap de terminationOrdered By: Rubén Tatum on 10-12-2022 Anion gap [Moles/Vol] 12.0 mmol/L 6.0-15.0 [facility] Sodium [Moles/volume] in Ser um or PlasmaOrdered By: Rubén Tatum on 10-12-2022 Sodium [Moles/Vol] 140 mmol/L 136-145 [facility] Urea nitrogen [Mass/volume] in Serum or PlasmaOrdered By: Rubén Tatum on 10-12-2022 Urea nitrogen [Mass/Vol] 23 mg/dL 7-25 [facility] Alanine aminotransferase [En zymatic activity/volume] in Serum or PlasmaOrdered By: Rubén Tatum on 10-11-2022 ALT [Catalytic activity/Vol] 18 U/L 7-52 [facility] Albumin [Mass/volume] in Ser um or Plasma by Bromocresol green (BCG) dye binding methoOrdered By: Rubén Tatum on 10-11-2022 Albumin BCG dye [Mass/Vol] 3.9 g/dL 3.5-5.7 [facility] Alkaline phosphatase [Enzyma tic activity/volume] in Serum or PlasmaOrdered By: Rubén Tatum on 10-11-2022 ALP [Catalytic activity/Vol] 46 U/L 34-104 [facility] Aspartate aminotransferase [ Enzymatic activity/volume] in Serum or PlasmaOrdered By: Rubén Tatum on 10-11-2022 AST [Catalytic activity/Vol] 30 U/L 13-39 [facility] Basophils Auto (Bld) [#/Vol] Ordered By: Galo Dent on 10-11-2022 Basophils (Bld) [#/Vol] 0.0 10*3/uL 0.0-0.2 [facility] Basophils/100 WBC Auto (Bld) Ordered By: Galo Dent on 10-11-2022 Basophils/100 WBC (Bld) 0.5 % . [facility] Bilirubin.total [Mass/volume ] in Serum or PlasmaOrdered By: Rubén Tatum on 10-11-2022 Bilirubin [Mass/Vol] 0.4 mg/dL 0.3-1.0 [facility] Cholesterol [Mass/volume] in Serum or PlasmaOrdered By: Rubén Tatum on 10-11-2022 Cholesterol [Mass/Vol] 221 mg/dL 140-200 [facility] Comment on above: Chol less than 200 m g/dl low riskChol 201-239 mg/dl borderline riskChol 240 mg/dl and greater high risk Cholesterol in LDL Calc [Mas s/Vol]Ordered By: Rubén Tatum on 10-11-2022 Cholesterol in LDL [Mass/Vol] 149 mg/dL 0-100 [facility] Comment on above: LDL ATP III CLASSIFI CATIONLDL less than 100 mg/dL OptimalLDL 100-129 mg/dL Near or above optimalLDL 130-159 mg/dL Borderline highLDL 160-189 mg/dL HighLDL greater than 189 mg/dL Very high Cholesterol in VLDL Calc [Ma ss/Vol]Ordered By: Rubén Tatum on 10-11-2022 Cholesterol in VLDL [Mass/Vol] 30 mg/dL [facility] Eosinophils Auto (Bld) [#/Vo l]Ordered By: Galo Dent on 10-11-2022 Eosinophils (Bld) [#/Vol] 0.2 10*3/uL 0.0-0.45 [facility] Eosinophils/100 WBC Auto (Bl d)Ordered By: Galo Dent on 10-11-2022 Eosinophils/100 WBC (Bld) 3.7 % . [facility] Erythrocyte distribution wid th Auto (RBC) [Ratio]Ordered By: Galo Dent on 10-11-2022 Erythrocyte distribution width (RBC) [Ratio] 14.9 % 12.0-14.8 [facility] Globulin Calc (S) [Mass/Vol] Ordered By: Rubén Tatum on 10-11-2022 Globulin (S) [Mass/Vol] 2.5 g/dL [facility] Glucose mean value [Mass/vol ume] in Blood Estimated from glycated hemoglobinOrdered By: Galo Dent on 10-11-2022 Average glucose Estimated from glycated hemoglobin (Bld) [Mass/Vol] 120 mg/dL [facility] Hematocrit Auto (Bld) [Volum e fraction]Ordered By: Galo Dent on 10-11-2022 Hematocrit (Bld) [Volume fraction] 37.7 % 38.8-50.0 [facility] Hemoglobin A1c percentageOrd ered By: Galo Dent on 10-11-2022 HbA1c (Bld) [Mass fraction] 5.8 % 4.3-5.6 [facility] Comment on above: Increased risk for d iabetes: 5.7 - 6.4diabetes: >6.4glycemic control for adults with diabetes: <7.0 Hemoglobin [Mass/volume] in BloodOrdered By: Galo Dent on 10-11-2022 Hemoglobin (Bld) [Mass/Vol] 12.7 g/dL 13.0-17.0 [facility] [facility] CoagulationOrde red By: Galo Dent on 10-11-2022 PT Coag (PPP) [Time] 11.3 s 9.0-12.9 [facility] Leukocytes [#/volume] correc kal for nucleated erythrocytes in Blood by Automated counOrdered By: Galo Dent on 10-11-2022 WBC corrected for nucl RBC Auto (Bld) [#/Vol] 6.6 10*3/uL 4.1-10.5 [facility] Lymphocytes Auto (Bld) [#/Vo l]Ordered By: Galo Dent on 10-11-2022 Lymphocytes (Bld) [#/Vol] 1.4 10*3/uL 1.00-4.8 [facility] Lymphocytes/100 WBC Auto (Bl d)Ordered By: Galo Dent on 10-11-2022 Lymphocytes/100 WBC (Bld) 21.8 % . [facility] MCH Auto (RBC) [Entitic mass ]Ordered By: Galo Dent on 10-11-2022 MCH (RBC) [Entitic mass] 30.1 pg 27.5-35.2 [facility] MCHC Auto (RBC) [Mass/Vol]Or dered By: Galo Dent on 10-11-2022 MCHC (RBC) [Mass/Vol] 33.7 g/dL 32.5-35.6 [facility] MCV Auto (RBC) [Entitic vol] Ordered By: Galo Dent on 10-11-2022 MCV (RBC) [Entitic vol] 89.4 fL 83.5-101 [facility] Monocytes Auto (Bld) [#/Vol] Ordered By: Galo Dent on 10-11-2022 Monocytes (Bld) [#/Vol] 0.7 10*3/uL 0.0-0.8 [facility] Monocytes/100 WBC Auto (Bld) Ordered By: Galo Dent on 10-11-2022 Monocytes/100 WBC (Bld) 10.2 % . [facility] Neutrophils Auto (Bld) [#/Vo l]Ordered By: Galo Dent on 10-11-2022 Neutrophils (Bld) [#/Vol] 4.2 10*3/uL 1.8-7.7 [facility] Neutrophils/100 WBC Auto (Bl d)Ordered By: Galo Dent on 10-11-2022 Neutrophils/100 WBC (Bld) 63.8 % . [facility] Nucleated erythrocytes [Pres ence] in Blood by Automated countOrdered By: Galo Dent on 10-11-2022 Nucleated RBC Auto Ql (Bld) 0.1 /100{WBC} 0-0.5 [facility] Platelet mean volume Auto (B ld) [Entitic vol]Ordered By: Galo Dent on 10-11-2022 Platelet mean volume (Bld) [Entitic vol] 7.3 fL 6.6-10.1 [facility] Platelet poor plasma interna tional normalized ratio (INR) by coagulation assay (relatOrdered By: Galo Dent on 10-11-2022 INR Coag (PPP) [Relative time] 1.0 {INR} [facility] Comment on above: INR Therapeutic Rang [...] 10-11-2022 Platelets (Bld) [#/Vol] 203 10*3/uL 150-450 [facility] Protein [Mass/volume] in Ser um or PlasmaOrdered By: Rubén Tatum on 10-11-2022 Protein [Mass/Vol] 6.4 g/dL 6.4-8.9 [facility] RBC Auto (Bld) [#/Vol]Ordere d By: Galo Dent on 10-11-2022 RBC (Bld) [#/Vol] 4.21 10*6/uL 3.90-5.60 [facility] Serum or plasma albumin/glob ulin mass ratioOrdered By: Rubén Tatum on 10-11-2022 Albumin/Globulin [Mass ratio] 1.6 {ratio} [facility] Serum or plasma high density lipoprotein (HDL) cholesterol measurementOrdered By: Rubén Tatum on 10-11-2022 Cholesterol in HDL [Mass/Vol] 42 mg/dL 29-71 [facility] Comment on above: HDL CHOL ATP-III CLA SSIFICATION Cardiovascular RiskHDL > or equal to 60 mg/dL LOWHDL < 40 mg/dL HIGH Serum or plasma total choles terol/high density lipoprotein (HDL) cholesterol mass ratOrdered By: Rubén Tatum on 10-11-2022 Cholesterol.total/Chol esterol in HDL [Mass ratio] 5.3 {ratio} <5.0 [facility] Triglyceride [Mass/volume] i n Serum or PlasmaOrdered By: Rubén Tatum on 10-11-2022 Triglyceride [Mass/Vol] 152 mg/dL 0-149 [facility] Comment on above: TRIG ATP III [...] <= 0.01 ng/mL [Mass/Vol] 3965.8 pg/mL 0.0-20.0 [facility] Comment on above: Critical Result : Ca lled to and read back by: HECTOR LOCO at: 10/11/2022 06:45:50 by:[id number] WBC Auto (Bld) [#/Vol]Ordere d By: Galo Dent on 10-11-2022 WBC (Bld) [#/Vol] 6.6 10*3/uL 4.1-10.5 [facility] AMYLASEon 10-10-2022 Amylase [Catalytic activity/Vol] 40 U/L Normal 25-115 [facility] Comment on above: Performed By: #### A MY, CMP, LIPA #### [facility] [address] [address] [address] Carrington Chandler Activated partial thrombopla stin time (aPTT) in platelet poor plasma by coagulation aOrdered By: Galo Dent on 10-10-2022 aPTT Coag (PPP) [Time] 35.9 s 25.1-36.5 [facility] CARDIAC ARLIN ADMITon 023 CK [Catalytic activity/Vol] 530 U/L Critically high 39-308 [facility] Comment on above: Performed By: #### A MY, CMP, LIPA #### [facility] [address] [address] [address] Carrington Chandler CK.MB [Mass/Vol] 60.47 ng/mL Critically high <=3.[address] [facility] Comment on above: Performed By: #### A MY, CMP, LIPA #### [facility] [address] [address] [address] Carrington Chandler HSTROP 9166.1 pg/mL Critically high 4.0-76.1 [facility] Comment on above: Result Comment: CUT- OFF POINTS HAVE BEEN ESTABLISHED BASED ON THE FOURTH UNIVERSAL DEFINITIONS OF MYOCARDIAL INFARCTION. THE UPPER REFERENCE LIMIT (URL) OF TROPONIN, DEFINED THE 99TH PERCENTILE OF cTnI DISTRIBUTION IN A REFERENCE POPULATION, HAS BEEN CONFIRMED THE DECISION THRESHOLD FOR [place] DIAGNOSIS. Performed By: #### A MY, CMP, LIPA #### [facility] [address] [address] [address] Carrington Chandler SAULO 108 ng/mL Critically high 16-96 [facility] Comment on above: Performed By: #### A MY, CMP, LIPA #### [facility] [address] [address] [address] Carrington Chandler CBC AUTO DIFFon 10-10-2022 BASO # 0.0 103/ul Normal 0.0-0.1 [facility] Comment on above: Performed By: #### B MP #### [facility] [address] [address] [address] Carrington Chandler Basophils/100 WBC (Bld) 0.4 % Normal 0.2-2.0 [facility] Comment on above: Performed By: #### B MP #### [facility] [address] [address] [address] Carrington Chandler EO # 0.3 103/ul Normal 0.0-0.7 [facility] Comment on above: Performed By: #### B MP #### [facility] [address] [address] [address] Carrington Chandler Eosinophils/100 WBC (Bld) 4.9 % Normal 0.9-7.0 [facility] Comment on above: Performed By: #### B MP #### [facility] [address] [address] [address] Carrington Chandler Erythrocyte distribution width (RBC) [Ratio] 13.8 % Normal 11.0-15.0 [facility] Comment on above: Performed By: #### B MP #### [facility] [address] [place] [address] Dr. Carrington Chandler Hematocrit (Bld) [Volume fraction] 38.1 % Critically low 42.0-54.0 [facility] Comment on above: Performed By: #### B MP #### [facility] [address] [address] [address] Carrington Chandler Hemoglobin (Bld) [Mass/Vol] 13.1 g/dL Critically low 14.0-18.0 [facility] Comment on above: Performed By: #### B MP #### [facility] [address] [address] [address] Carrington Chandler IG # 0.01 10e3/ul Normal 0.00-0.03 [facility] Comment on above: Performed By: #### B MP #### [facility] [address] [address] [address] Carrington Chandler IG % 0.2 % Normal 0.0-0.5 [facility] Comment on above: Performed By: #### B MP #### [facility] [address] [place] [address] Dr. Carrington Chandler LYMPH # 1.8 103/ul Normal 1.2-3.8 [facility] Comment on above: Performed By: #### B MP #### [facility] [address] [address] [address] Carrington Chandler Lymphocytes/100 WBC (Bld) 33.5 % Normal 20.5-60.0 [facility] Comment on above: Performed By: #### B MP #### [facility] [address] [place] [address] Dr. Carrington Chandler MANUAL DIFF REQ NO Normal [facility] Comment on above: Performed By: #### B MP #### [facility] [address] [address] [address] Carrington Chandler MCH (RBC) [Entitic mass] 30.7 pg Normal 25.9-34.0 [facility] Comment on above: Performed By: #### B MP #### [facility] [address] [address] [address] Carrington Chandler MCHC (RBC) [Mass/Vol] 34.4 g/dL Normal 29.9-35.2 [facility] Comment on above: Performed By: #### B MP #### [facility] [address] [address] [address] Carrington Chandler MCV (RBC) [Entitic vol] 89.2 fL Normal 80.0-94.0 [facility] Comment on above: Performed By: #### B MP #### [facility] [address] [address] [address] Carrington Chandler MONO # 0.6 103/ul Normal 0.3-0.8 [facility] Comment on above: Performed By: #### B MP #### [facility] [address] [address] [address] Carrington Chandler Monocytes/100 WBC (Bld) 11.8 % Normal 1.7-12.0 [facility] Comment on above: Performed By: #### B MP #### [facility] [address] [place] [address] Dr. Carrington Chandler NEUT # 2.6 103/ul Normal 1.4-6.5 [facility] Comment on above: Performed By: #### B MP #### [facility] [address] [address] [address] Carrington Chandler Neutrophils/100 WBC (Bld) 49.2 % Normal 43.0-75.0 [facility] Comment on above: Performed By: #### B MP #### [facility] [address] [address] [address] Carrington Chandler Platelet mean volume (Bld) [Entitic vol] 9.2 fL Critically low 9.5-13.5 [facility] Comment on above: Performed By: #### B MP #### [facility] [address] [address] [address] Carrington Chandler PLT 213 103/ul Normal 150-450 [facility] Comment on above: Performed By: #### B MP #### [facility] [address] [address] [address] Carrington Chandler RBC 4.27 106/ul Critically low 4.70-6.10 [facility] Comment on above: Performed By: #### B MP #### [facility] [address] [place] [address] Dr. Carrington Chandler WBC 5.4 103/ul Normal 4.0-11.0 [facility] Comment on above: Performed By: #### B MP #### [facility] [address] [place] [address] Dr. Carrington Chandler LIPASEon 10-10-2022 Lipase [Catalytic activity/Vol] 212.0 U/L Normal 73.0-393.0 [facility] Comment on above: Performed By: #### A MY, CMP, LIPA #### [facility] [address] [place] [address] Dr. Carrington Chandler PROF 14(COMP METB)on 023 Albumin [Mass/Vol] 3.9 g/dL Normal 3.4-5.0 [facility] Comment on above: Performed By: #### A MY, CMP, LIPA #### [facility] [address] [place] [address] Dr. Carrington Chandler Albumin/Globulin [Mass ratio] 1.2 {ratio} Normal [facility] Comment on above: Performed By: #### A MY, CMP, LIPA #### [facility] [address] [place] [address] Dr. Carrington Chandler ALP [Catalytic activity/Vol] 67 U/L Normal 46-116 [facility] Comment on above: Performed By: #### A MY, CMP, LIPA #### [facility] [address] [place] [address] Dr. Carrington Chandler ALT [Catalytic activity/Vol] 30 U/L Normal 16-63 [facility] Comment on above: Performed By: #### A MY, CMP, LIPA #### [facility] [address] [place] [address] Dr. Carrington Chandler Anion gap [Moles/Vol] 12.8 mmol/L Normal [facility] Comment on above: Performed By: #### A MY, CMP, LIPA #### [facility] [address] [place] [address] Dr. Carrington Chandler AST [Catalytic activity/Vol] 58 U/L Critically high 15-37 [facility] Comment on above: Performed By: #### A MY, CMP, LIPA #### [facility] [address] [place] [address] Dr. Carrington Chandler Bilirubin [Mass/Vol] 0.3 mg/dL Normal 0.2-1.0 [facility] Comment on above: Performed By: #### A MY, CMP, LIPA #### [facility] [address] [place] [address] Dr. Carrington Chandler Calcium [Mass/Vol] 8.9 mg/dL Normal 8.5-10.1 [facility] Comment on above: Performed By: #### A MY, CMP, LIPA #### [facility] [address] [place] [address] Dr. Carrington Chandler Chloride [Moles/Vol] 101 mmol/L Normal 98-107 [facility] Comment on above: Performed By: #### A MY, CMP, LIPA #### [facility] [address] [place] [address] Dr. Carrington Chandler CO2 [Moles/Vol] 26.0 mmol/L Normal 21.0-32.0 [facility] Comment on above: Performed By: #### A MY, CMP, LIPA #### [facility] [address] [place] [address] Dr. Carrington Chandler Creatinine [Mass/Vol] 0.98 mg/dL Normal 0.70-1.30 [facility] Comment on above: Performed By: #### A MY, CMP, LIPA #### [facility] [address] [place] [address] Dr. Carrington Chandler EGFR-AF BAHAMIAN >60 Normal >=60 [facility] Comment on above: Performed By: #### A MY, CMP, LIPA #### [facility] [address] [place] [address] Dr. Carrington Chandler EGFR-NON AF BAHAMIAN >60 Normal >=60 [facility] Comment on above: Performed By: #### A MY, CMP, LIPA #### [facility] [address] [place] [address] Dr. Carrington Chandler Globulin (S) [Mass/Vol] 3.2 g/dL Normal [facility] Comment on above: Performed By: #### A MY, CMP, LIPA #### [facility] [address] [address] [address] Carrington Chandler Glucose [Mass/Vol] 101 mg/dL Normal 74-106 [facility] Comment on above: Performed By: #### A MY, CMP, LIPA #### [facility] [address] [address] [address] Carrington Chandler Potassium [Moles/Vol] 3.8 mmol/L Normal 3.5-5.1 [facility] Comment on above: Performed By: #### A MY, CMP, LIPA #### [facility] [address] [place] [address] Dr. Carrington Chandelr Protein [Mass/Vol] 7.1 g/dL Normal 6.4-8.2 [facility] Comment on above: Performed By: #### A MY, CMP, LIPA #### [facility] [address] [address] [address] Carrington Chandler Sodium [Moles/Vol] 136 mmol/L Normal 136-145 [facility] Comment on above: Performed By: #### A MY, CMP, LIPA #### [facility] [address] [address] [address] Carrington Chandler Urea nitrogen [Mass/Vol] 19.0 mg/dL Critically high 7.0-18.0 [facility] Comment on above: Performed By: #### A MY, CMP, LIPA #### [facility] [address] [address] [address] Carrington Chandler Urea nitrogen/Creatinine [Mass ratio] 19.4 mg/mg Normal [facility] Comment on above: Performed By: #### A MY, CMP, LIPA #### [facility] [address] [address] [address] Carrington Chandler PROTIMEon 10-10-2022 INR Coag (PPP) [Relative time] {INR} Normal [facility] Comment on above: Performed By: #### B MP #### [facility] [address] [place], [place] [address] Dr. Carrington Chandler INR GUIDELINES SEE BELOW Normal [facility] Comment on above: Result Comment: LYNDON RED INR: 2.0 - 3.0 CONDITIONS NOT LISTED BELOW 2.5 - 3.5 FOR PROSTHETIC HEART VALVE REPLACEMENT 2.5 - 3.5 RECURRENT THROMBOSIS Performed By: #### B MP #### [facility] [address] [id number] Carrington Chandler PT Coag (PPP) [Time] 9.7 s Normal 9.0-11.6 [facility] Comment on above: Performed By: #### B MP #### [facility] [address] [place] [address] Dr. Carrington Chandler PTTon 10-10-2022 aPTT Coag (Bld) [Time] 29.5 s Normal 22.3-36.2 [facility] Comment on above: Performed By: #### B MP #### [facility] [address] [place] [address] Dr. Carrington Chandler XR ABD FLAT UP_PA [...] XIOMARA SCHNEIDER Date: 2022-10-10 00:33 Normal [facility] XR knee RT 3Von 09-09-2022 XR knee RT 3V [facility] [employer] Other XR knee RT 3V [facility] [employer] Other XR knee RT 3V 1111 [facility] [employer] Other XR knee RT 3[place] [address] [facility] [employer] Other XR knee RT 3V XRay Report [facility] [employer] Other XR knee RT 3V Signed [employer] Other XR knee RT 3V Patient: Hector Gaspar MR#: [id number] [facility] [employer] Other XR knee RT 3V 187 [employer] Other XR knee RT 3V : 1960 Acct:[id number] [facility] [employer] Other XR knee RT 3V Age/Sex: 62 / M ADM Date: 09/09/22 [employer] Other XR knee RT 3V Loc: [facility] Room: Type : [facility] [employer] Other XR knee RT 3V Attending Dr: Wagner Marrufo DO [employer] Other XR knee RT 3V Copies to: Wagner Marrufo DO [employer] Other XR knee RT 3V Ordering Provider: Judy Marrufo DO [employer] Other XR knee RT 3V Date of Service: 09/09/22 [employer] Other XR knee RT 3V XR/XR knee RT 3V - NOT FOR ER USE: Acute pain of right knee [employer] Other XR knee RT 3V RIGHT KNEE - 3 views N [facility] [employer] Other XR knee RT 3V CLINICAL HISTORY: Generalized right knee pain for 2 weeks. [employer] Other XR knee RT 3V COMPARISON: None [employer] Other XR knee RT 3V FINDINGS: [employer] Other XR knee RT 3V Small knee joint effusion. Mild degenerative changes without acute bony process. Presumed loose [employer] Other XR knee RT 3V body seen anteriorly within the joint space. [employer] Other XR knee RT 3V X R/XR knee RT 3V - NOT FOR ER USE [employer] Other XR knee RT 3V IMPRESSION: [employer] Other XR knee RT 3V MILD DEGENERATIVE CH ANGES WITHOUT ACUTE BONY PROCESS. [employer] Other XR knee RT 3V Impression dictated by: Parrish Layton Jr., D.OEhsan09/09/2022 3:40 PM [employer] Other XR knee RT 3V Dictation Location: [place] [address] [employer] Other XR knee RT 3V Transcribed By: PWS 09/09/22 [facility] [employer] Other XR knee RT 3V Dictated By: Parrish Layton Jr, DO 09/09/22 1539 [employer] Other XR knee RT 3V Signed By: [employer] Other XR knee RT 3V 09/09/22 1540 [employer] Other CBC AUTO DIFFon 09-08-2022 BASO # 0.0 103/ul Normal 0.0-0.1 [facility] Comment on above: Performed By: #### C BC #### [facility] [address] [address] [address] Carrington Chandler Basophils/100 WBC (Bld) 0.4 % Normal 0.2-2.0 [facility] Comment on above: Performed By: #### C BC #### [facility] [address] [place] [address] Dr. Carrington Chandler EO # 0.3 103/ul Normal 0.0-0.7 [facility] Comment on above: Performed By: #### C BC #### [facility] [address] [place] [address] Dr. Carrington Chandler Eosinophils/100 WBC (Bld) 4.9 % Normal 0.9-7.0 [facility] Comment on above: Performed By: #### C BC #### [facility] [address] [place] [address] Dr. Carrington Chandler Erythrocyte distribution width (RBC) [Ratio] 14.0 % Normal 11.0-15.0 [facility] Comment on above: Performed By: #### C BC #### [facility] [address] [place] [address] Dr. Carrington Chandler Hematocrit (Bld) [Volume fraction] 36.9 % Critically low 42.0-54.0 [facility] Comment on above: Performed By: #### C BC #### [facility] [address] [place] [address] Dr. Carrington Chandler Hemoglobin (Bld) [Mass/Vol] 12.2 g/dL Critically low 14.0-18.0 [facility] Comment on above: Performed By: #### C BC #### [facility] [address] [place] [address] Dr. Carrington Chandler IG # 0.01 10e3/ul Normal 0.00-0.03 [facility] Comment on above: Performed By: #### C BC #### [facility] [address] [place] [address] Dr. Carrington Chandler IG % 0.2 % Normal 0.0-0.5 [facility] Comment on above: Performed By: #### C BC #### [facility] [address] [place] [address] Dr. Carrington hCandler LYMPH # 1.7 103/ul Normal 1.2-3.8 [facility] Comment on above: Performed By: #### C BC #### [facility] [address] [place] [address] Dr. Carrington Chandler Lymphocytes/100 WBC (Bld) 30.6 % Normal 20.5-60.0 [facility] Comment on above: Performed By: #### C BC #### [facility] [address] [place] [address] Dr. Carrington Chandler MANUAL DIFF REQ NO Normal [facility] Comment on above: Performed By: #### C BC #### [facility] [address] [place] [address] Dr. Carrington Chandler MCH (RBC) [Entitic mass] 30.3 pg Normal 25.9-34.0 [facility] Comment on above: Performed By: #### C BC #### [facility] [address] [place] [address] Dr. Carrington Chandler MCHC (RBC) [Mass/Vol] 33.1 g/dL Normal 29.9-35.2 [facility] Comment on above: Performed By: #### C BC #### [facility] [address] [place] [address] Dr. Carrington Chandler MCV (RBC) [Entitic vol] 91.6 fL Normal 80.0-94.0 [facility] Comment on above: Performed By: #### C BC #### [facility] [address] [place] [address] Dr. Carrington Chandler MONO # 0.6 103/ul Normal 0.3-0.8 [facility] Comment on above: Performed By: #### C BC #### [facility] [address] [place] [address] Dr. Carrington Chandler Monocytes/100 WBC (Bld) 9.9 % Normal 1.7-12.0 [facility] Comment on above: Performed By: #### C BC #### [facility] [address] [place] [address] Dr. Carrington Chandler NEUT # 3.0 103/ul Normal 1.4-6.5 [facility] Comment on above: Performed By: #### C BC #### [facility] [address] [address] [address] Carrington Chandler Neutrophils/100 WBC (Bld) 54.0 % Normal 43.0-75.0 [facility] Comment on above: Performed By: #### C BC #### [facility] [address] [address] [address] Carrington Chandler Platelet mean volume (Bld) [Entitic vol] 8.9 fL Critically low 9.5-13.5 [facility] Comment on above: Performed By: #### C BC #### [facility] [address] [address] [address] Carrington Chandler PLT 189 103/ul Normal 150-450 [facility] Comment on above: Performed By: #### C BC #### [facility] [address] [place] [address] Dr. Carrington Chandler RBC 4.03 106/ul Critically low 4.70-6.10 [facility] Comment on above: Performed By: #### C BC #### [facility] [address] [place] [address] Dr. Carrington Chandler WBC 5.5 103/ul Normal 4.0-11.0 [facility] Comment on above: Performed By: #### C BC #### [facility] [address] [place] [address] Dr. Carrington Chandler CRPon 09-08-2022 CRP 0.5 mg/dL Normal <=1.0 [facility] Comment on above: Performed By: #### A MY, CMP, LIPA #### [facility] [facility] [address] [place] [address] Dr. Carrington Chandler PROF CHEM 8 (BAS METB)on Anion gap [Moles/Vol] 12.7 mmol/L Normal [facility] Comment on above: Performed By: #### A MY, CMP, LIPA #### [facility] [address] [place] [address] Dr. Carrington Chandler Calcium [Mass/Vol] 8.6 mg/dL Normal 8.5-10.1 [facility] Comment on above: Performed By: #### A MY, CMP, LIPA #### [facility] [address] [address] [address] Carrington Chandler Chloride [Moles/Vol] 102 mmol/L Normal 98-107 [facility] Comment on above: Performed By: #### A MY, CMP, LIPA #### [facility] [address] [address] [address] Carrington Chandler CO2 [Moles/Vol] 27.2 mmol/L Normal 21.0-32.0 [facility] Comment on above: Performed By: #### A MY, CMP, LIPA #### [facility] [address] [address] [address] Carrington Chandler Creatinine [Mass/Vol] 1.11 mg/dL Normal 0.70-1.30 [facility] Comment on above: Performed By: #### A MY, CMP, LIPA #### [facility] [address] [address] [address] Carrington Chandler EGFR-AF BAHAMIAN >60 Normal >=60 [facility] Comment on above: Performed By: #### A MY, CMP, LIPA #### [facility] [address] [address] [address] Carrington Chandler EGFR-NON AF BAHAMIAN >60 Normal >=60 [facility] Comment on above: Performed By: #### A MY, CMP, LIPA #### [facility] [address] [address] [address] Carrington Chandler Glucose [Mass/Vol] 132 mg/dL Critically high 74-106 [facility] Comment on above: Performed By: #### A MY, CMP, LIPA #### [facility] [address] [address] [address] Carrington Chandler Potassium [Moles/Vol] 3.9 mmol/L Normal 3.5-5.1 [facility] Comment on above: Performed By: #### A MY, CMP, LIPA #### [facility] [address] [address] [address] Carrington Chandler Sodium [Moles/Vol] 138 mmol/L Normal 136-145 [facility] Comment on above: Performed By: #### A MY, CMP, LIPA #### [facility] [address] [address] [address] Carrington Chandler Urea nitrogen [Mass/Vol] 18.0 mg/dL Normal 7.0-18.0 [facility] Comment on above: Performed By: #### A MY, CMP, LIPA #### [facility] [address] [address] [address] Carrington Chandler Urea nitrogen/Creatinine [Mass ratio] 16.2 mg/mg Normal [facility] Comment on above: Performed By: #### A MY, CMP, LIPA #### [facility] [address] [address] [address] Carrington Chandler US [place] DOP LEG [...] by: CYNTHIA VASQUEZ Date: 2022-09-07 22:52 Normal [facility] HEMOGLOBINon 08-10-2022 Hemoglobin (Bld) [Mass/Vol] 13.3 g/dL Critically low 14.0-18.0 [facility] Comment on above: Performed By: #### B MP #### [facility] [address] [address] [address] Carrington Chandler CBC W MANUAL DIFFon 12-17-20 22 ATYPICAL LYMPH # 0.65 103/ul Normal [facility] Comment on above: Performed By: #### A MY, CMP, LIPA #### [facility] [address] [address] [address] Carrington Chandler ATYPICAL LYMPH % 11 % Normal [facility] Comment on above: Performed By: #### A MY, CMP, LIPA #### [facility] [address] [address] [address] Carrington Chandler BAND # 0.0 103/ul Normal 0.0-0.3 [facility] Comment on above: Performed By: #### A MY, CMP, LIPA #### [facility] [address] [address] [address] Carrington Chandler BAND % 0 % Normal 0-5 [facility] Comment on above: Performed By: #### A MY, CMP, LIPA #### [facility] [address] [address] [address] Carrington Chandler BASOM # 0.00 103/ul Normal 0.00-0.10 [facility] Comment on above: Performed By: #### A MY, CMP, LIPA #### [facility] [address] [address] [address] Carrington Chandler BASOM % 0.0 % Critically low 0.2-2.0 [facility] Comment on above: Performed By: #### A MY, CMP, LIPA #### [facility] [address] [address] [address] Carrington Chandler BLAST # Normal [facility] Comment on above: Performed By: #### A MY, CMP, LIPA #### [facility] [address] [address] [address] Carrington Chandler BLAST % Normal [facility] Comment on above: Performed By: #### A MY, CMP, LIPA #### [facility] [address] [address] [address] Carrington Chandler CORRECTED WBC Normal 4.0-11.0 [facility] Comment on above: Performed By: #### A MY, CMP, LIPA #### [facility] [address] [address] [address] Carrington Chandler EOS # 0.00 103/ul Normal 0.00-0.70 [facility] Comment on above: Performed By: #### A MY, CMP, LIPA #### [facility] [address] [place] [address] Dr. Carrington Chnadler EOS% 0.0 % Critically low 0.9-7.0 [facility] Comment on above: Performed By: #### A MY, CMP, LIPA #### [facility] [address] [place] [address] Dr. Carrington Chandler HCT 34.7 % Critically low 42.0-54.0 [facility] Comment on above: Performed By: #### A MY, CMP, LIPA #### [facility] [address] [place] [address] Dr. Carrington Chandler HGB 11.7 g/dl Critically low 14.0-18.0 [facility] Comment on above: Performed By: #### A MY, CMP, LIPA #### [facility] [address] [place] [address] Dr. Carrington Chandler LYMPHM # 0.12 103/ul Critically low 1.20-3.80 [facility] Comment on above: Performed By: #### A MY, CMP, LIPA #### [facility] [address] [place] [address] Dr. Carrington Chandler LYMPHM% 2.0 % Critically low 20.5-60.0 [facility] Comment on above: Performed By: #### A MY, CMP, LIPA #### [facility] [address] [place] [address] Dr. Carrington Chandler MCH 29.9 pg Normal 25.9-34.0 [facility] Comment on above: Performed By: #### A MY, CMP, LIPA #### [facility] [address] [place] [address] Dr. Carrington Chandler MCHC 33.7 g/dl Normal 29.9-35.2 [facility] Comment on above: Performed By: #### A MY, CMP, LIPA #### [facility] [address] [address] [address] Carrington Chandler MCV 88.7 fL Normal 80.0-94.0 [facility] Comment on above: Performed By: #### A MY, CMP, LIPA #### [facility] [address] [address] [address] Carrington Chandler METAMYELOCYTE # Normal [facility] Comment on above: Performed By: #### A MY, CMP, LIPA #### [facility] [address] [address] [address] Carrington Chandler METAMYELOCYTE % Normal [facility] Comment on above: Performed By: #### A MY, CMP, LIPA #### [facility] [address] [place] [address] Dr. Carrington Chandler MONOM# 0.00 103/ul Critically low 0.30-0.80 [facility] Comment on above: Performed By: #### A MY, CMP, LIPA #### [facility] [address] [place] [address] Dr. Carrington Chandler MONOM% 0.0 % Critically low 1.7-12.0 [facility] Comment on above: Performed By: #### A MY, CMP, LIPA #### [facility] [address] [place] [address] Dr. Carrington Chandler MPV 9.4 fL Critically low 9.5-13.5 [facility] Comment on above: Performed By: #### A MY, CMP, LIPA #### [facility] [address] [place] [address] Dr. Carrington Chandler MYELOCYTE # Normal [facility] Comment on above: Performed By: #### A MY, CMP, LIPA #### [facility] [address] [place] [address] Dr. Carrington Chandler MYELOCYTE % Normal [facility] Comment on above: Performed By: #### A MY, CMP, LIPA #### [facility] [address] [place] [address] Dr. Carrington Chandler NRBC Normal [facility] Comment on above: Performed By: #### A MY, CMP, LIPA #### [facility] [address] [place] [address] Dr. Carrington Chandler PLT 160 103/ul Normal 150-450 [facility] Comment on above: Performed By: #### A MY, CMP, LIPA #### [facility] [address] [address] [address] Carrington Chandler RBC 3.91 106/ul Critically low 4.70-6.10 [facility] Comment on above: Performed By: #### A MY, CMP, LIPA #### [facility] [address] [place] [address] Dr. Carrington Chandler RDW 12.4 % Normal 11.0-15.0 [facility] Comment on above: Performed By: #### A MY, CMP, LIPA #### [facility] [address] [place] [address] Dr. Carrington Chandler SEG # 5.13 103/ul Normal 1.40-6.50 [facility] Comment on above: Performed By: #### A MY, CMP, LIPA #### [facility] [address] [place] [address] Dr. Carrington Chandler SEG % 87.0 % Critically high 43.0-75.0 [facility] Comment on above: Performed By: #### A MY, CMP, LIPA #### [facility] [address] [place] [address] Dr. Carrington Chandler WBC 5.9 103/ul Normal 4.0-11.0 [facility] Comment on above: Performed By: #### A MY, CMP, LIPA #### [facility] [address] [place] [address] Dr. Carrington Chandler PROF 14(COMP METB)on 022 Albumin [Mass/Vol] 3.0 g/dL Critically low 3.4-5.[address] [facility] Comment on above: Performed By: #### C MP #### [facility] [address] [place] [address] Dr. Carrington Chandler Albumin/Globulin [Mass ratio] 0.9 {ratio} Normal [facility] Comment on above: Performed By: #### C MP #### [facility] [address] [place] [address] Dr. Carrington Chandler ALP [Catalytic activity/Vol] 56 U/L Normal 46-116 [facility] Comment on above: Performed By: #### C MP #### [facility] [address] [place] [address] Dr. Carrington Chandler ALT [Catalytic activity/Vol] 21 U/L Normal 16-63 [facility] Comment on above: Performed By: #### C MP #### [facility] [address] [place] [address] Dr. Carrington Chandler Anion gap [Moles/Vol] 12.9 mmol/L Normal [facility] Comment on above: Performed By: #### C MP #### [facility] [address] [place] [address] Dr. Carrington Chandler AST [Catalytic activity/Vol] 15 U/L Normal 15-37 [facility] Comment on above: Performed By: #### C MP #### [facility] [address] [place] [address] Dr. Carrington Chandler Bilirubin [Mass/Vol] 0.2 mg/dL Normal 0.2-1.0 [facility] Comment on above: Performed By: #### C MP #### [facility] [address] [place] [address] Dr. Carrington Chandler Calcium [Mass/Vol] 8.1 mg/dL Critically low 8.5-10.[address] [facility] Comment on above: Performed By: #### C MP #### [facility] [address] [place] [address] Dr. Carrington Chandler Chloride [Moles/Vol] 104 mmol/L Normal 98-107 [facility] Comment on above: Performed By: #### C MP #### [facility] [address] [place] [address] Dr. Carrington Chandler CO2 [Moles/Vol] 24.6 mmol/L Normal 21.0-32.0 [facility] Comment on above: Performed By: #### C MP #### [facility] [address] [address] [address] Carrington Chandler Creatinine [Mass/Vol] 0.88 mg/dL Normal 0.70-1.30 [facility] Comment on above: Performed By: #### C MP #### [facility] [address] [address] [address] Carrington Chandler EGFR-AF BAHAMIAN >60 Normal >=60 [facility] Comment on above: Performed By: #### C MP #### [facility] [address] [address] [address] Carrington Chandler EGFR-NON AF BAHAMIAN >60 Normal >=60 [facility] Comment on above: Performed By: #### C MP #### [facility] [address] [place] [address] Dr. Carrington Chandler Globulin (S) [Mass/Vol] 3.3 g/dL Normal [facility] Comment on above: Performed By: #### C MP #### [facility] [address] [address] [address] Carrington Chandler Glucose [Mass/Vol] 174 mg/dL Critically high 74-106 [facility] Comment on above: Performed By: #### C MP #### [facility] [address] [place] [address] Dr. Carrington Chandler Potassium [Moles/Vol] 3.5 mmol/L Normal 3.5-5.1 [facility] Comment on above: Performed By: #### C MP #### [facility] [address] [place] [address] Dr. Carrington Chandler Protein [Mass/Vol] 6.3 g/dL Critically low 6.4-8.[address] [facility] Comment on above: Performed By: #### C MP #### [facility] [address] [address] [address] Carrington Chandler Sodium [Moles/Vol] 138 mmol/L Normal 136-145 [facility] Comment on above: Performed By: #### C MP #### [facility] [address] [place] [address] Dr. Carrington Chandler Urea nitrogen [Mass/Vol] 17.0 mg/dL Normal 7.0-18.0 [facility] Comment on above: Performed By: #### C MP #### [facility] [address] [place] [address] Dr. Carrington Chandler Urea nitrogen/Creatinine [Mass ratio] 19.3 mg/mg Normal [facility] Comment on above: Performed By: #### C MP #### [facility] [address] [place] [address] Dr. Carrington Chandler CBC AUTO DIFFon 07-10-2022 BASO # 0.0 103/ul Normal 0.0-0.1 [facility] Comment on above: Performed By: #### B MP #### [facility] [address] [place] [address] Dr. Carrington Chandler Basophils/100 WBC (Bld) 0.2 % Normal 0.2-2.0 [facility] Comment on above: Performed By: #### B MP #### [facility] [address] [place] [address] Dr. Carrington Chandler EO # 0.1 103/ul Normal 0.0-0.7 [facility] Comment on above: Performed By: #### B MP #### [facility] [address] [place] [address] Dr. Carrington Chandler Eosinophils/100 WBC (Bld) 2.3 % Normal 0.9-7.0 [facility] Comment on above: Performed By: #### B MP #### [facility] [address] [place] [address] Dr. Carrington Chandler Erythrocyte distribution width (RBC) [Ratio] 12.5 % Normal 11.0-15.0 [facility] Comment on above: Performed By: #### B MP #### [facility] [address] [place] [address] Dr. Carrington Chandler Hematocrit (Bld) [Volume fraction] 36.8 % Critically low 42.0-54.0 [facility] Comment on above: Performed By: #### B MP #### [facility] [address] [place] [address] Dr. Carrington Chandler Hemoglobin (Bld) [Mass/Vol] 12.3 g/dL Critically low 14.0-18.0 [facility] Comment on above: Performed By: #### B MP #### [facility] [address] [place] [address] Dr. Carrington Chandler IG # 0.01 10e3/ul Normal 0.00-0.03 [facility] Comment on above: Performed By: #### B MP #### [facility] [address] [place] [address] Dr. Carrington Chandler IG % 0.2 % Normal 0.0-0.5 [facility] Comment on above: Performed By: #### B MP #### [facility] [address] [place] [address] Dr. Carrington Chandler LYMPH # 1.5 103/ul Normal 1.2-3.8 [facility] Comment on above: Performed By: #### B MP #### [facility] [address] [place] [address] Dr. Carrington Chandler Lymphocytes/100 WBC (Bld) 34.7 % Normal 20.5-60.0 [facility] Comment on above: Performed By: #### B MP #### [facility] [address] [place] [address] Dr. Carrington Chandler MANUAL DIFF REQ NO Normal [facility] Comment on above: Performed By: #### B MP #### [facility] [address] [place] [address] Dr. Carrington Chandler MCH (RBC) [Entitic mass] 29.8 pg Normal 25.9-34.0 [facility] Comment on above: Performed By: #### B MP #### [facility] [address] [place] [address] Dr. Carrington Chandler MCHC (RBC) [Mass/Vol] 33.4 g/dL Normal 29.9-35.2 [facility] Comment on above: Performed By: #### B MP #### [facility] [address] [address] [address] Carrington Chandler MCV (RBC) [Entitic vol] 89.1 fL Normal 80.0-94.0 [facility] Comment on above: Performed By: #### B MP #### [facility] [address] [address] [address] Carrington Chandler MONO # 0.5 103/ul Normal 0.3-0.8 [facility] Comment on above: Performed By: #### B MP #### [facility] [address] [address] [address] Carrington Chandler Monocytes/100 WBC (Bld) 11.0 % Normal 1.7-12.0 [facility] Comment on above: Performed By: #### B MP #### [facility] [address] [address] [address] Carrington Chandler NEUT # 2.2 103/ul Normal 1.4-6.5 [facility] Comment on above: Performed By: #### B MP #### [facility] [address] [address] [address] Carrington Chandler Neutrophils/100 WBC (Bld) 51.6 % Normal 43.0-75.0 [facility] Comment on above: Performed By: #### B MP #### [facility] [address] [address] [address] Carrington Chandler Platelet mean volume (Bld) [Entitic vol] 9.0 fL Critically low 9.5-13.5 [facility] Comment on above: Performed By: #### B MP #### [facility] [address] [place] [address] Dr. Carrington Chandler PLT 147 103/ul Critically low 150-450 [facility] Comment on above: Performed By: #### B MP #### [facility] [address] [address] [address] Carrington Chandler RBC 4.13 106/ul Critically low 4.70-6.10 [facility] Comment on above: Performed By: #### B MP #### [facility] [address] [address] [address] Carrington Chandler WBC 4.4 103/ul Normal 4.0-11.0 [facility] Comment on above: Performed By: #### B MP #### [facility] [address] [place] [address] Dr. Carrington Chandler CULTURE SPUTUMon 07-10-2022 CULTURE SPUTUM Culture Observations : NORMAL RESPIRATORY SANDY. Normal [facility] Comment on above: Performed By: #### C MP #### [facility] [address] [place] [address] Dr. Carrington Chandler MAGNESIUMon 07-10-2022 Magnesium [Mass/Vol] 2.0 mg/dL Normal 1.8-2.4 [facility] Comment on above: Performed By: #### C MP #### [facility] [address] [place] [address] Dr. Carrington Chandler PROF 14(COMP METB)on 022 Albumin [Mass/Vol] 2.8 g/dL Critically low 3.4-5.0 [facility] Comment on above: Performed By: #### B MP #### [facility] [address] [place] [address] Dr. Carrington Chandler Albumin/Globulin [Mass ratio] 0.8 {ratio} Normal [facility] Comment on above: Performed By: #### B MP #### [facility] [address] [place] [address] Dr. Carrington Chandler ALP [Catalytic activity/Vol] 55 U/L Normal 46-116 [facility] Comment on above: Performed By: #### B MP #### [facility] [address] [place] [address] Dr. Carrington Chandler ALT [Catalytic activity/Vol] 22 U/L Normal 16-63 [facility] Comment on above: Performed By: #### B MP #### [facility] [address] [place] [address] Dr. Carrington Chandler Anion gap [Moles/Vol] 10.3 mmol/L Normal [facility] Comment on above: Performed By: #### B MP #### [facility] [address] [place] [address] Dr. Carrington Chandler AST [Catalytic activity/Vol] 22 U/L Normal 15-37 [facility] Comment on above: Performed By: #### B MP #### [facility] [address] [address] [address] Carrington Chandler Bilirubin [Mass/Vol] 0.2 mg/dL Normal 0.2-1.0 [facility] Comment on above: Performed By: #### B MP #### [facility] [address] [address] [address] Carrington Chandler Calcium [Mass/Vol] 8.0 mg/dL Critically low 8.5-10.1 [facility] Comment on above: Performed By: #### B MP #### [facility] [address] [place] [address] Dr. Carrington Chandler Chloride [Moles/Vol] 105 mmol/L Normal 98-107 [facility] Comment on above: Performed By: #### B MP #### [facility] [address] [address] [address] Carrington Chandler CO2 [Moles/Vol] 28.1 mmol/L Normal 21.0-32.0 [facility] Comment on above: Performed By: #### B MP #### [facility] [address] [place] [address] Dr. Carrington Chandler Creatinine [Mass/Vol] 0.89 mg/dL Normal 0.70-1.30 [facility] Comment on above: Performed By: #### B MP #### [facility] [address] [address] [address] Carrington Chandler EGFR-AF BAHAMIAN >60 Normal >=60 [facility] Comment on above: Performed By: #### B MP #### [facility] [address] [address] [address] Carrington Chandler EGFR-NON AF BAHAMIAN >60 Normal >=60 [facility] Comment on above: Performed By: #### B MP #### [facility] [address] [address] [address] Carrington Chandler Globulin (S) [Mass/Vol] 3.7 g/dL Normal [facility] Comment on above: Performed By: #### B MP #### [facility] [address] [address] [address] Carrington Chandler Glucose [Mass/Vol] 124 mg/dL Critically high 74-106 [facility] Comment on above: Performed By: #### B MP #### [facility] [address] [address] [address] Carrington Chandler Potassium [Moles/Vol] 3.4 mmol/L Critically low 3.5-5.1 [facility] Comment on above: Performed By: #### B MP #### [facility] [address] [address] [address] Carrington Chandler Protein [Mass/Vol] 6.5 g/dL Normal 6.4-8.2 [facility] Comment on above: Performed By: #### B MP #### [facility] [address] [address] [address] Carrington Chandler Sodium [Moles/Vol] 140 mmol/L Normal 136-145 [facility] Comment on above: Performed By: #### B MP #### [facility] [address] [address] [address] Carrington Chandler Urea nitrogen [Mass/Vol] 15.0 mg/dL Normal 7.0-18.0 [facility] Comment on above: Performed By: #### B MP #### [facility] [address] [address] [address] Carrington Chandler Urea nitrogen/Creatinine [Mass ratio] 16.9 mg/mg Normal [facility] Comment on above: Performed By: #### B MP #### [facility] [address] [address] [address] Carrington Chandler CBC AUTO DIFFon 07-09-2022 BASO # 0.0 103/ul Normal 0.0-0.1 [facility] Comment on above: Performed By: #### A MY, CMP, LIPA #### [facility] [address] [address] [address] Carrington Chandler Basophils/100 WBC (Bld) 0.2 % Normal 0.2-2.0 [facility] Comment on above: Performed By: #### A MY, CMP, LIPA #### [facility] [address] [place] [address] Dr. Carrington Chandler EO # 0.1 103/ul Normal 0.0-0.7 [facility] Comment on above: Performed By: #### A MY, CMP, LIPA #### [facility] [address] [place] [address] Dr. Carrington Chandler Eosinophils/100 WBC (Bld) 1.9 % Normal 0.9-7.0 [facility] Comment on above: Performed By: #### A MY, CMP, LIPA #### [facility] [address] [place] [address] Dr. Carrington Chandler Erythrocyte distribution width (RBC) [Ratio] 12.6 % Normal 11.0-15.0 [facility] Comment on above: Performed By: #### A MY, CMP, LIPA #### [facility] [address] [place] [address] Dr. Carrington Chandler Hematocrit (Bld) [Volume fraction] 38.8 % Critically low 42.0-54.0 [facility] Comment on above: Performed By: #### A MY, CMP, LIPA #### [facility] [address] [place] [address] Dr. Carrington Chandler Hemoglobin (Bld) [Mass/Vol] 12.9 g/dL Critically low 14.0-18.0 [facility] Comment on above: Performed By: #### A MY, CMP, LIPA #### [facility] [address] [place] [address] Dr. Carrington Chandler IG # 0.01 10e3/ul Normal 0.00-0.03 [facility] Comment on above: Performed By: #### A MY, CMP, LIPA #### [facility] [address] [place] [address] Dr. Carrington Chandler IG % 0.2 % Normal 0.0-0.5 [facility] Comment on above: Performed By: #### A MY, CMP, LIPA #### [facility] [address] [address] [address] Carrington Chandler LYMPH # 1.7 103/ul Normal 1.2-3.8 [facility] Comment on above: Performed By: #### A MY, CMP, LIPA #### [facility] [address] [place] [address] Dr. Carrington Chandler Lymphocytes/100 WBC (Bld) 34.7 % Normal 20.5-60.0 [facility] Comment on above: Performed By: #### A MY, CMP, LIPA #### [facility] [address] [place] [address] Dr. Carrington Chandler MANUAL DIFF REQ NO Normal [facility] Comment on above: Performed By: #### A MY, CMP, LIPA #### [facility] [address] [place] [address] Dr. Carrington Chandler MCH (RBC) [Entitic mass] 29.9 pg Normal 25.9-34.0 [facility] Comment on above: Performed By: #### A MY, CMP, LIPA #### [facility] [address] [place] [address] Dr. Carrington Chandler MCHC (RBC) [Mass/Vol] 33.2 g/dL Normal 29.9-35.2 [facility] Comment on above: Performed By: #### A MY, CMP, LIPA #### [facility] [address] [place] [address] Dr. Carrington Chandler MCV (RBC) [Entitic vol] 90.0 fL Normal 80.0-94.0 [facility] Comment on above: Performed By: #### A MY, CMP, LIPA #### [facility] [address] [place] [address] Dr. Carrington Chandler MONO # 0.5 103/ul Normal 0.3-0.8 [facility] Comment on above: Performed By: #### A MY, CMP, LIPA #### [facility] [address] [place] [address] Dr. Carrington Cahndler Monocytes/100 WBC (Bld) 10.4 % Normal 1.7-12.0 [facility] Comment on above: Performed By: #### A MY, CMP, LIPA #### [facility] [address] [place] [address] Dr. Carrington Chandler NEUT # 2.5 103/ul Normal 1.4-6.5 [facility] Comment on above: Performed By: #### A MY, CMP, LIPA #### [facility] [address] [place] [address] Dr. Carrington Chandler Neutrophils/100 WBC (Bld) 52.6 % Normal 43.0-75.0 [facility] Comment on above: Performed By: #### A MY, CMP, LIPA #### [facility] [address] [place] [address] Dr. Carrington Chandler Platelet mean volume (Bld) [Entitic vol] 9.0 fL Critically low 9.5-13.5 [facility] Comment on above: Performed By: #### A MY, CMP, LIPA #### [facility] [address] [place] [address] Dr. Carrington Chandler PLT 155 103/ul Normal 150-450 [facility] Comment on above: Performed By: #### A MY, CMP, LIPA #### [facility] [address] [place] [address] Dr. Carrington Chandler RBC 4.31 106/ul Critically low 4.70-6.10 [facility] Comment on above: Performed By: #### A MY, CMP, LIPA #### [facility] [address] [place] [address] Dr. Carrington Chandler WBC 4.8 103/ul Normal 4.0-11.0 [facility] Comment on above: Performed By: #### A MY, CMP, LIPA #### [facility] [address] [place] [address] Dr. Carrington Chandler [facility] SARS-CoV-2 (COVID-19) RNA CHARLIE+probe Ql (Unsp spec) Not detected Normal NOT DETECTED [facility] Comment on above: Result Comment: When diagnostic [...] for this test is supported by the [place] [employer] and Human Service's declaration that [...] used). Performed By: #### C MP #### [facility] [address] [place] [address] Dr. Carrington Chandler ER URINE PROFILEon 2 Bilirubin Ql (U) Negative Normal NEGATIVE [facility] Comment on above: Performed By: #### C MP #### [facility] [address] [place] [address] Dr. Carrington Chandler Clarity (U) CLEAR Normal CLEAR [facility] Comment on above: Performed By: #### C MP #### [facility] [address] [place] [address] Dr. Carrington Chandler Color (U) LT. YELLOW Normal YELLOW [facility] Comment on above: Performed By: #### C MP #### [facility] [address] [place] [address] Dr. Carrington Chandler ERUAHD A micrscopic examina tion will be performed if indicated. Normal [facility] Comment on above: Performed By: #### C MP #### [facility] [address] [place] [address] Dr. Carrington Chandler Glucose Ql (U) Negative Normal NEGATIVE [facility] Comment on above: Performed By: #### C MP #### [facility] [address] [place] [address] Dr. Carrington Chandler Hemoglobin Ql (U) Negative Normal NEGATIVE [facility] Comment on above: Performed By: #### C MP #### [facility] [address] [place] [address] Dr. Carrington Chandler Ketones Ql (U) Negative Normal NEGATIVE [facility] Comment on above: Performed By: #### C MP #### [facility] [address] [place] [address] Dr. Carrington Chandler LEUKOCYTES Negative Normal NEGATIVE [facility] Comment on above: Performed By: #### C MP #### [facility] [address] [place] [address] Dr. Carrington Chandler Nitrite Ql (U) Negative Normal NEGATIVE [facility] Comment on above: Performed By: #### C MP #### [facility] [address] [place] [address] Dr. Carrington Chandler pH (U) 6.0 [pH] Normal 5-9 [facility] Comment on above: Performed By: #### C MP #### [facility] [address] [place] [address] Dr. Carrington Chandler SPEC GRAVITY 1.010 Normal 1.005-<=1. 025 [facility] Comment on above: Performed By: #### C MP #### [facility] [address] [place] [address] Dr. Carrington Chandler UA PROTEIN Negative Normal NEGATIVE/ TRACE [facility] Comment on above: Performed By: #### C MP #### [facility] [address] [place] [address] Dr. Carrington Chandler UR MICRO IND NOT INDICATED Normal [facility] Comment on above: Performed By: #### C MP #### [facility] [address] [place] [address] Dr. Carrington Chandler Urobilinogen Qn (U) 0.2 {Lars'U}/dL Normal 0.2 - 1. 0 [facility] Comment on above: Performed By: #### C MP #### [facility] [address] [place] [address] Dr. Carrington Chandler PROF CHEM 8 (BAS METB)on Anion gap [Moles/Vol] 6.6 mmol/L Normal [facility] Comment on above: Performed By: #### B MP #### [facility] [address] [address] [address] Carrington Chandler Calcium [Mass/Vol] 8.2 mg/dL Critically low 8.5-10.1 [facility] e [facility] Comment on above: Performed By: #### B MP #### [facility] [address] [address] [address] Carrington Chandler Chloride [Moles/Vol] 102 mmol/L Normal 98-107 [facility] Comment on above: Performed By: #### B MP #### [facility] [address] [address] [address] Carrington Chandler CO2 [Moles/Vol] 31.2 mmol/L Normal 21.0-32.0 [facility] Comment on above: Performed By: #### B MP #### [facility] [address] [address] [address] Carrington Chandler Creatinine [Mass/Vol] 0.90 mg/dL Normal 0.70-1.30 [facility] Comment on above: Performed By: #### B MP #### [facility] [address] [place] [address] Dr. Carrington Chandler EGFR-AF BAHAMIAN >60 Normal >=60 [facility] Comment on above: Performed By: #### B MP #### [facility] [address] [address] [address] Carrington Chandler EGFR-NON AF BAHAMIAN >60 Normal >=60 [facility] Comment on above: Performed By: #### B MP #### [facility] [address] [address] [address] Carrington Chandler Glucose [Mass/Vol] 100 mg/dL Normal 74-106 [facility] Comment on above: Performed By: #### B MP #### [facility] [address] [address] [address] Carrington Chandler Potassium [Moles/Vol] 3.8 mmol/L Normal 3.5-5.1 [facility] Comment on above: Performed By: #### B MP #### [facility] [address] [address] [address] Crarington Chandler Sodium [Moles/Vol] 136 mmol/L Normal 136-145 [facility] Comment on above: Performed By: #### B MP #### [facility] [address] [place], [place] [address] Dr. Carrington Chandler Urea nitrogen [Mass/Vol] 16.0 mg/dL Normal 7.0-18.0 [facility] Comment on above: Performed By: #### B MP #### [facility] [id number] Carrington Chandler Urea nitrogen/Creatinine [Mass ratio] 17.8 mg/mg Normal [facility] Comment on above: Performed By: #### B MP #### [facility] [id number] Carrington Chandler XR CHEST 1 Von [...] TEE LEWIS Date: 2022-07-09 20:51 Normal [facility] AMYLASEon 07-08-2022 Amylase [Catalytic activity/Vol] 40 U/L Normal 25-115 [facility] Comment on above: Performed By: #### A MY, CMP, LIPA #### [facility] [address] [place], [place] [address] Dr. Carrington Chandler CBC AUTO DIFFon 07-08-2022 BASO # 0.0 103/ul Normal 0.0-0.1 [facility] Comment on above: Performed By: #### C BC #### [facility] [address] [id number] Carrington Chandler Basophils/100 WBC (Bld) 0.3 % Normal 0.2-2.0 [facility] Comment on above: Performed By: #### C BC #### [facility] [address] [place] [address] Dr. Carrington Chandler EO # 0.1 103/ul Normal 0.0-0.7 [facility] Comment on above: Performed By: #### C BC #### [facility] [address] [place] [address] Dr. Carrington Chandler Eosinophils/100 WBC (Bld) 1.2 % Normal 0.9-7.0 [facility] Comment on above: Performed By: #### C BC #### [facility] [address] [place] [address] Dr. Carrington Chandler Erythrocyte distribution width (RBC) [Ratio] 12.9 % Normal 11.0-15.0 [facility] Comment on above: Performed By: #### C BC #### [facility] [address] [place] [address] Dr. Carrington Chandler Hematocrit (Bld) [Volume fraction] 43.2 % Normal 42.0-54.0 [facility] Comment on above: Performed By: #### C BC #### [facility] [address] [place] [address] Dr. Carrington Chandler Hemoglobin (Bld) [Mass/Vol] 14.4 g/dL Normal 14.0-18.0 [facility] Comment on above: Performed By: #### C BC #### [facility] [address] [place] [address] Dr. Carrington Chandler IG # 0.02 10e3/ul Normal 0.00-0.03 [facility] Comment on above: Performed By: #### C BC #### [facility] [address] [place] [address] Dr. Carrington Chandler IG % 0.3 % Normal 0.0-0.5 [facility] Comment on above: Performed By: #### C BC #### [facility] [address] [place] [address] Dr. Carrington Chandler LYMPH # 1.6 103/ul Normal 1.2-3.8 [facility] Comment on above: Performed By: #### C BC #### [facility] [address] [place] [address] Dr. Carrington Chandler Lymphocytes/100 WBC (Bld) 24.0 % Normal 20.5-60.0 [facility] Comment on above: Performed By: #### C BC #### [facility] [address] [place] [address] Dr. Carrington Chandler MANUAL DIFF REQ NO Normal [facility] Comment on above: Performed By: #### C BC #### [facility] [address] [place] [address] Dr. Carrington Chandler MCH (RBC) [Entitic mass] 30.2 pg Normal 25.9-34.0 [facility] Comment on above: Performed By: #### C BC #### [facility] [address] [place] [address] Dr. Carrington Chandler MCHC (RBC) [Mass/Vol] 33.3 g/dL Normal 29.9-35.2 [facility] Comment on above: Performed By: #### C BC #### [facility] [address] [place] [address] Dr. Carrington Chandler MCV (RBC) [Entitic vol] 90.6 fL Normal 80.0-94.0 [facility] Comment on above: Performed By: #### C BC #### [facility] [address] [place] [address] Dr. Carrington Chandler MONO # 0.6 103/ul Normal 0.3-0.8 [facility] Comment on above: Performed By: #### C BC #### [facility] [address] [place] [address] Dr. Carrington Chandler Monocytes/100 WBC (Bld) 9.4 % Normal 1.7-12.0 [facility] Comment on above: Performed By: #### C BC #### [facility] [address] [place] [address] Dr. Carrington Chandler NEUT # 4.4 103/ul Normal 1.4-6.5 [facility] Comment on above: Performed By: #### C BC #### [facility] [address] [place] [address] Dr. Carrington Chandler Neutrophils/100 WBC (Bld) 64.8 % Normal 43.0-75.0 [facility] Comment on above: Performed By: #### C BC #### [facility] [address] [place] [address] Dr. Carrington Chandler Platelet mean volume (Bld) [Entitic vol] 9.5 fL Normal 9.5-13.5 [facility] Comment on above: Performed By: #### C BC #### [facility] [address] [place] [address] Dr. Carrington Chandler PLT 174 103/ul Normal 150-450 [facility] Comment on above: Performed By: #### C BC #### [facility] [address] [place] [address] Dr. Carrington Chandler RBC 4.77 106/ul Normal 4.70-6.10 [facility] Comment on above: Performed By: #### C BC #### [facility] [address] [place] [address] Dr. Carrington Chandler WBC 6.7 103/ul Normal 4.0-11.0 [facility] Comment on above: Performed By: #### C BC #### [facility] [address] [place] [address] Dr. Carrington Chandler [facility] SARS-CoV-2 (COVID-19) RNA CHARLIE+probe Ql (Unsp spec) Not detected Normal NOT DETECTED [facility] Comment on above: Result Comment: When diagnostic [...] for this test is supported by the [place] [employer] Human [employer]'s declaration that [...] used). Performed By: #### B MP #### [facility] [address] [place] [address] Dr. Carrington Chandler INFLUENZA A AND B AGon 07-08 INFLUANEGH SEE BELOW Normal [facility] Comment on above: Result Comment: Nega tive for Flu A protein angiten. Infection due to Flu A cannot be ruled out. Flu A angiten in the sample may be below the detection limit of the test. Performed By: #### B MP #### [facility] [address] [place] [address] Dr. Carrington Chandler INFLUBNEGH SEE BELOW Normal [facility] Comment on above: Result Comment: Nega tive for Flu B protein antigen. Infection due to Flu B cannot be ruled out. Flu B antigen in the sample may be below the detection limit of the test. Performed By: #### B MP #### [facility] [address] [place] [address] Dr. Carrington Chandler INFLUENZA A AG Negative Normal NEGATIVE SEE COMMENT [facility] Comment on above: Performed By: #### B MP #### [facility] [address] [place] [address] Dr. Carrington Chandler INFLUENZA B AG Negative Normal NEGATIVE SEE COMMENT [facility] Comment on above: Performed By: #### B MP #### [facility] [address] [place] [address] Dr. Carrington Chandler INTERNAL CONTROLS Within Normal Limits Normal Wi thin Normal Limits [facility] Comment on above: Performed By: #### B MP #### [facility] [address] [place] [address] Dr. Carrington Chandler LIPASEon 07-08-2022 Lipase [Catalytic activity/Vol] 195.0 U/L Normal 73.0-393.0 [facility] Comment on above: Performed By: #### A MY, CMP, LIPA #### [facility] [address] [place] [address] Dr. Carrington Chandler PROF 14(COMP METB)on 022 Albumin [Mass/Vol] 3.4 g/dL Normal 3.4-5.0 [facility] Comment on above: Performed By: #### A MY, CMP, LIPA #### [facility] [address] [address] [address] Carrington Chandler Albumin/Globulin [Mass ratio] 0.8 {ratio} Normal [facility] Comment on above: Performed By: #### A MY, CMP, LIPA #### [facility] [address] [place] [address] Dr. Carrington Chandler ALP [Catalytic activity/Vol] 61 U/L Normal 46-116 [facility] Comment on above: Performed By: #### A MY, CMP, LIPA #### [facility] [address] [place] [address] Dr. Carrington Chandler ALT [Catalytic activity/Vol] 26 U/L Normal 16-63 [facility] Comment on above: Performed By: #### A MY, CMP, LIPA #### [facility] [address] [place] [address] Dr. Carrington Chandler Anion gap [Moles/Vol] 11.0 mmol/L Normal [facility] Comment on above: Performed By: #### A MY, CMP, LIPA #### [facility] [address] [place] [address] Dr. Carrington Chandler AST [Catalytic activity/Vol] 30 U/L Normal 15-37 [facility] Comment on above: Performed By: #### A MY, CMP, LIPA #### [facility] [address] [place] [address] Dr. Carrington Chandler Bilirubin [Mass/Vol] 0.3 mg/dL Normal 0.2-1.0 [facility] Comment on above: Performed By: #### A MY, CMP, LIPA #### [facility] [address] [place] [address] Dr. Carrington Chandler Calcium [Mass/Vol] 8.4 mg/dL Critically low 8.5-10.1 Th e [facility] Comment on above: Performed By: #### A MY, CMP, LIPA #### [facility] [address] [address] [address] Carrington Chandler Chloride [Moles/Vol] 102 mmol/L Normal 98-107 [facility] Comment on above: Performed By: #### A MY, CMP, LIPA #### [facility] [address] [address] [address] Carrington Chandler CO2 [Moles/Vol] 28.1 mmol/L Normal 21.0-32.0 [facility] Comment on above: Performed By: #### A MY, CMP, LIPA #### [facility] [address] [place] [address] Dr. Carrington Chandler Creatinine [Mass/Vol] 0.99 mg/dL Normal 0.70-1.30 [facility] Comment on above: Performed By: #### A MY, CMP, LIPA #### [facility] [address] [place] [address] Dr. Carrington Chandler EGFR-AF BAHAMIAN >60 Normal >=60 [facility] Comment on above: Performed By: #### A MY, CMP, LIPA #### [facility] [address] [place] [address] Dr. Carrington Chandler EGFR-NON AF BAHAMIAN >60 Normal >=60 [facility] Comment on above: Performed By: #### A MY, CMP, LIPA #### [facility] [address] [place] [address] Dr. Carrington Chandler Globulin (S) [Mass/Vol] 4.3 g/dL Normal [facility] Comment on above: Performed By: #### A MY, CMP, LIPA #### [facility] [address] [place] [address] Dr. Carrington Chandler Glucose [Mass/Vol] 107 mg/dL Critically high 74-106 [facility] Comment on above: Performed By: #### A MY, CMP, LIPA #### [facility] [address] [address] [address] Carrington Chandler Potassium [Moles/Vol] 4.1 mmol/L Normal 3.5-5.1 [facility] Comment on above: Performed By: #### A MY, CMP, LIPA #### [facility] [address] [place] [address] Dr. Carrington Chandler Protein [Mass/Vol] 7.7 g/dL Normal 6.4-8.2 [facility] Comment on above: Performed By: #### A MY, CMP, LIPA #### [facility] [address] [place] [address] Dr. Carrington Chandler Sodium [Moles/Vol] 137 mmol/L Normal 136-145 [facility] Comment on above: Performed By: #### A MY, CMP, LIPA #### [facility] [address] [place] [id number] Dr. Carrington Chandler Urea nitrogen [Mass/Vol] 23.0 mg/dL Critically high 7.0-18.0 [facility] Comment on above: Performed By: #### A MY, CMP, LIPA #### [facility] [address] [place] [address] Dr. Carrington Chandler Urea nitrogen/Creatinine [Mass ratio] 23.2 mg/mg Normal [facility] Comment on above: Performed By: #### A MY, CMP, LIPA #### [facility] [address] [place] [address] Dr. Carrington Chandler CBC AUTO DIFFon 07-03-2022 BASO # 0.0 103/ul Normal 0.0-0.1 [facility] Comment on above: Performed By: #### C MP #### [facility] [address] [place] [address] Dr. Carrington Chandler Basophils/100 WBC (Bld) 0.5 % Normal 0.2-2.0 [facility] Comment on above: Performed By: #### C MP #### [facility] [address] [place] [address] Dr. Carrington Chandler EO # 0.3 103/ul Normal 0.0-0.7 [facility] Comment on above: Performed By: #### C MP #### [facility] [address] [place] [address] Dr. Carrington Chandler Eosinophils/100 WBC (Bld) 4.7 % Normal 0.9-7.0 [facility] Comment on above: Performed By: #### C MP #### [facility] [address] [place] [address] Dr. Carrington Chandler Erythrocyte distribution width (RBC) [Ratio] 12.7 % Normal 11.0-15.0 [facility] Comment on above: Performed By: #### C MP #### [facility] [address] [place] [address] Dr. Carrington Chandler Hematocrit (Bld) [Volume fraction] 38.8 % Critically low 42.0-54.0 [facility] Comment on above: Performed By: #### C MP #### [facility] [address] [place] [address] Dr. Carrington Chandler Hemoglobin (Bld) [Mass/Vol] 13.2 g/dL Critically low 14.0-18.0 [facility] Comment on above: Performed By: #### C MP #### [facility] [address] [place] [address] Dr. Carrington Chandler IG # 0.01 10e3/ul Normal 0.00-0.03 [facility] Comment on above: Performed By: #### C MP #### [facility] [address] [place] [address] Dr. Carrington Chandler IG % 0.2 % Normal 0.0-0.5 [facility] Comment on above: Performed By: #### C MP #### [facility] [address] [place] [address] Dr. Carrington Chandler LYMPH # 1.4 103/ul Normal 1.2-3.8 [facility] Comment on above: Performed By: #### C MP #### [facility] [address] [place] [address] Dr. Carrington Chandler Lymphocytes/100 WBC (Bld) 25.2 % Normal 20.5-60.0 [facility] Comment on above: Performed By: #### C MP #### [facility] [address] [place] [address] Dr. Carrington Chandler MANUAL DIFF REQ NO Normal [facility] Comment on above: Performed By: #### C MP #### [facility] [address] [place] [address] Dr. Carrington Chandler MCH (RBC) [Entitic mass] 30.3 pg Normal 25.9-34.0 [facility] Comment on above: Performed By: #### C MP #### [facility] [address] [place] [address] Dr. Carrington Chandler MCHC (RBC) [Mass/Vol] 34.0 g/dL Normal 29.9-35.2 [facility] Comment on above: Performed By: #### C MP #### [facility] [address] [place] [address] Dr. Carrington Chandler MCV (RBC) [Entitic vol] 89.2 fL Normal 80.0-94.0 [facility] Comment on above: Performed By: #### C MP #### [facility] [address] [place] [address] Dr. Carrington Chandler MONO # 0.6 103/ul Normal 0.3-0.8 [facility] Comment on above: Performed By: #### C MP #### [facility] [address] [place] [address] Dr. Carrington Chandler Monocytes/100 WBC (Bld) 10.2 % Normal 1.7-12.0 [facility] Comment on above: Performed By: #### C MP #### [facility] [address] [place] [address] Dr. Carrington Chandler NEUT # 3.3 103/ul Normal 1.4-6.5 [facility] Comment on above: Performed By: #### C MP #### [facility] [address] [place] [address] Dr. Carrington Chandler Neutrophils/100 WBC (Bld) 59.2 % Normal 43.0-75.0 [facility] Comment on above: Performed By: #### C MP #### [facility] [address] [address] [address] Carrington Chadnler Platelet mean volume (Bld) [Entitic vol] 9.1 fL Critically low 9.5-13.5 [facility] Comment on above: Performed By: #### C MP #### [facility] [address] [address] [address] Carrington Chandler PLT 199 103/ul Normal 150-450 [facility] Comment on above: Performed By: #### C MP #### [facility] [address] [address] [address] Carrington Chandler RBC 4.35 106/ul Critically low 4.70-6.10 [facility] Comment on above: Performed By: #### C MP #### [facility] [address] [address] [address] Carrington Chandler WBC 5.5 103/ul Normal 4.0-11.0 [facility] Comment on above: Performed By: #### C MP #### [facility] [address] [address] [address] Carrington Chandler Covid-19 PCR ([facility])on SARS-CoV-2 (COVID-19) RNA CHARLIE+probe Ql (Unsp spec) Not detected Normal NOT DETECTED [facility] Comment on above: Result Comment: When diagnostic [...] for this test is supported by the [place] [employer] and Human Service's declaration that [...] used). Performed By: #### B MP #### [facility] [address] [place] [address] Dr. Carrington Chandler PROF 14(COMP METB)on 022 Albumin [Mass/Vol] 3.8 g/dL Normal 3.4-5.0 [facility] Comment on above: Performed By: #### C MP #### [facility] [address] [place] [address] Dr. Carrington Chandler Albumin/Globulin [Mass ratio] 1.0 {ratio} Normal [facility] Comment on above: Performed By: #### C MP #### [facility] [address] [place] [address] Dr. Carrington Chandler ALP [Catalytic activity/Vol] 69 U/L Normal 46-116 [facility] Comment on above: Performed By: #### C MP #### [facility] [address] [place] [address] Dr. Carrington Chandler ALT [Catalytic activity/Vol] 18 U/L Normal 16-63 [facility] Comment on above: Performed By: #### C MP #### [facility] [address] [place] [address] Dr. Carrington Chandler Anion gap [Moles/Vol] 13.3 mmol/L Normal [facility] Comment on above: Performed By: #### C MP #### [facility] [address] [place] [address] Dr. Carrington Chandler AST [Catalytic activity/Vol] 19 U/L Normal 15-37 [facility] Comment on above: Performed By: #### C MP #### [facility] [address] [place] [address] Dr. Carrington Chandler Bilirubin [Mass/Vol] 0.3 mg/dL Normal 0.2-1.0 [facility] Comment on above: Performed By: #### C MP #### [facility] [address] [place] [address] Dr. Carrington Chandler Calcium [Mass/Vol] 9.0 mg/dL Normal 8.5-10.1 [facility] Comment on above: Performed By: #### C MP #### [facility] [address] [address] [address] Carrington Chandler Chloride [Moles/Vol] 101 mmol/L Normal 98-107 [facility] Comment on above: Performed By: #### C MP #### [facility] [address] [address] [address] Carrington Chandler CO2 [Moles/Vol] 26.7 mmol/L Normal 21.0-32.0 [facility] Comment on above: Performed By: #### C MP #### [facility] [address] [address] [address] Carrington Chandler Creatinine [Mass/Vol] 1.06 mg/dL Normal 0.70-1.30 [facility] Comment on above: Performed By: #### C MP #### [facility] [address] [address] [address] Carrington Chandler EGFR-AF BAHAMIAN >60 Normal >=60 [facility] Comment on above: Performed By: #### C MP #### [facility] [address] [address] [address] Carrington Chandler EGFR-NON AF BAHAMIAN >60 Normal >=60 [facility] Comment on above: Performed By: #### C MP #### [facility] [address] [address] [address] Carrington Chandler Globulin (S) [Mass/Vol] 3.8 g/dL Normal [facility] Comment on above: Performed By: #### C MP #### [facility] [address] [address] [address] Carrington Chandler Glucose [Mass/Vol] 98 mg/dL Normal 74-106 [facility] Comment on above: Performed By: #### C MP #### [facility] [address] [address] [address] Carrington Chandler Potassium [Moles/Vol] 4.0 mmol/L Normal 3.5-5.1 [facility] Comment on above: Performed By: #### C MP #### [facility] [address] [address] [address] Carrington Chandler Protein [Mass/Vol] 7.6 g/dL Normal 6.4-8.2 [facility] Comment on above: Performed By: #### C MP #### [facility] [address] [address] [address] Carrington Chandler Sodium [Moles/Vol] 137 mmol/L Normal 136-145 [facility] Comment on above: Performed By: #### C MP #### [facility] [address] [address] [address] Carrington Chandler Urea nitrogen [Mass/Vol] 21.0 mg/dL Critically high 7.0-18.0 [facility] Comment on above: Performed By: #### C MP #### [facility] [address] [address] [address] Carrington Chandler Urea nitrogen/Creatinine [Mass ratio] 19.8 mg/mg Normal [facility] Comment on above: Performed By: #### C MP #### [facility] [address] [address] [address] Carrington Chandler XR CHEST 1 Von [...] CYNTHIA VASQUEZ Date: 2022-07-03 21:16 Normal [facility] CBC AUTO DIFFon 02-03-2022 BASO # 0.0 103/ul Normal 0.0-0.1 [facility] Comment on above: Performed By: #### C BC #### [facility] [address] [address] [address] Carrington Chandler Basophils/100 WBC (Bld) 0.3 % Normal 0.2-2.0 [facility] Comment on above: Performed By: #### C BC #### [facility] [address] [address] [address] Carrington Chandler EO # 0.1 103/ul Normal 0.0-0.7 [facility] Comment on above: Performed By: #### C BC #### [facility] [address] [address] [address] Carrington Chandler Eosinophils/100 WBC (Bld) 0.9 % Normal 0.9-7.0 [facility] Comment on above: Performed By: #### C BC #### [facility] [address] [place] [address] Dr. Carrington Chandler Erythrocyte distribution width (RBC) [Ratio] 13.9 % Normal 11.0-15.0 [facility] Comment on above: Performed By: #### C BC #### [facility] [address] [place] [address] Dr. Carrington Chandler Hematocrit (Bld) [Volume fraction] 40.4 % Critically low 42.0-54.0 [facility] Comment on above: Performed By: #### C BC #### [facility] [address] [place] [address] Dr. Carrington Chandler Hemoglobin (Bld) [Mass/Vol] 13.4 g/dL Critically low 14.0-18.0 [facility] Comment on above: Performed By: #### C BC #### [facility] [address] [place] [address] Dr. Carrington Chandler IG # 0.03 10e3/ul Normal 0.00-0.03 [facility] Comment on above: Performed By: #### C BC #### [facility] [address] [place] [address] Dr. Carrington Chandler IG % 0.3 % Normal 0.0-0.5 [facility] Comment on above: Performed By: #### C BC #### [facility] [address] [address] [address] Carrington Chandler LYMPH # 1.5 103/ul Normal 1.2-3.8 [facility] Comment on above: Performed By: #### C BC #### [facility] [address] [place] [address] Dr. Carrington Chandler Lymphocytes/100 WBC (Bld) 12.3 % Critically low 20.5-60.0 [facility] Comment on above: Performed By: #### C BC #### [facility] [address] [place] [address] Dr. Carrington Chandler MANUAL DIFF REQ NO Normal [facility] Comment on above: Performed By: #### C BC #### [facility] [address] [place] [address] Dr. Carrington Chandler MCH (RBC) [Entitic mass] 30.0 pg Normal 25.9-34.0 [facility] Comment on above: Performed By: #### C BC #### [facility] [address] [place] [address] Dr. Carrington Chandler MCHC (RBC) [Mass/Vol] 33.2 g/dL Normal 29.9-35.2 [facility] Comment on above: Performed By: #### C BC #### [facility] [address] [place] [address] Dr. Carrington Chandler MCV (RBC) [Entitic vol] 90.6 fL Normal 80.0-94.0 [facility] Comment on above: Performed By: #### C BC #### [facility] [address] [place] [address] Dr. Carrington Chandler MONO # 1.0 103/ul Critically high 0.3-0.8 [facility] Comment on above: Performed By: #### C BC #### [facility] [address] [place] [address] Dr. Carrington Chandler Monocytes/100 WBC (Bld) 8.5 % Normal 1.7-12.0 [facility] Comment on above: Performed By: #### C BC #### [facility] [address] [place] [address] Dr. Carrington Chandler NEUT # 9.2 103/ul Critically high 1.4-6.5 [facility] Comment on above: Performed By: #### C BC #### [facility] [address] [address] [address] Carrington Chandler Neutrophils/100 WBC (Bld) 77.7 % Critically high 43.0-75.0 [facility] Comment on above: Performed By: #### C BC #### [facility] [address] [place] [address] Dr. Carrington Chandler Platelet mean volume (Bld) [Entitic vol] 9.5 fL Normal 9.5-13.5 [facility] Comment on above: Performed By: #### C BC #### [facility] [address] [place] [address] Dr. Carrington Chandler PLT 204 103/ul Normal 150-450 [facility] Comment on above: Performed By: #### C BC #### [facility] [address] [place] [address] Dr. Carrington Chandler RBC 4.46 106/ul Critically low 4.70-6.10 [facility] Comment on above: Performed By: #### C BC #### [facility] [address] [place] [address] Dr. Carrington Chandler WBC 11.9 103/ul Critically high 4.0-11.0 [facility] Comment on above: Performed By: #### C BC #### [facility] [address] [place] [address] Dr. Carrington Chandler [facility] SARS-CoV-2 (COVID-19) RNA CHARLIE+probe Ql (Unsp spec) Not detected Normal NOT DETECTED [facility] Comment on above: Result Comment: When diagnostic [...] for this test is supported by the [place] [employer] and Human Service's declaration that [...] longer be used). Performed By: #### [facility] #### [facility] [address] [place] [address] Dr. Carrington Chandler PROF 14(COMP METB)on 022 Albumin [Mass/Vol] 3.7 g/dL Normal 3.4-5.0 [facility] Comment on above: Performed By: #### C MP #### [facility] [address] [place] [address] Dr. Carrington Chandler Albumin/Globulin [Mass ratio] 0.9 {ratio} Normal [facility] Comment on above: Performed By: #### C MP #### [facility] [address] [place] [address] Dr. Carrington Chandler ALP [Catalytic activity/Vol] 62 U/L Normal 46-116 [facility] Comment on above: Performed By: #### C MP #### [facility] [address] [place] [address] Dr. Carrington Chandler ALT [Catalytic activity/Vol] 21 U/L Normal 16-63 [facility] Comment on above: Performed By: #### C MP #### [facility] [address] [place] [address] Dr. Carrington Chandler Anion gap [Moles/Vol] 12.3 mmol/L Normal [facility] Comment on above: Performed By: #### C MP #### [facility] [address] [place] [address] Dr. Carrington Chandler AST [Catalytic activity/Vol] 13 U/L Critically low 15-37 [facility] Comment on above: Performed By: #### C MP #### [facility] [address] [address] [address] Carrington Chandler Bilirubin [Mass/Vol] 0.5 mg/dL Normal 0.2-1.0 [facility] Comment on above: Performed By: #### C MP #### [facility] [address] [address] [address] Carrington Chandler Calcium [Mass/Vol] 9.1 mg/dL Normal 8.5-10.1 [facility] Comment on above: Performed By: #### C MP #### [facility] [address] [address] [address] Carrington Chandler Chloride [Moles/Vol] 102 mmol/L Normal 98-107 [facility] Comment on above: Performed By: #### C MP #### [facility] [address] [address] [address] Carrington Chandler CO2 [Moles/Vol] 24.9 mmol/L Normal 21.0-32.0 [facility] Comment on above: Performed By: #### C MP #### [facility] [address] [address] [address] Carrington Chandler Creatinine [Mass/Vol] 1.36 mg/dL Critically high 0.70-1.30 [facility] Comment on above: Performed By: #### C MP #### [facility] [address] [address] [address] Carrington Chandler EGFR-AF BAHAMIAN >60 Normal >=60 [facility] Comment on above: Performed By: #### C MP #### [facility] [address] [address] [address] Carrington Chandler EGFR-NON AF BAHAMIAN 53 mL/min/1.73m2 Critically low >=60 [facility] Comment on above: Performed By: #### C MP #### [facility] [address] [address] [address] Carrington Chandler Globulin (S) [Mass/Vol] 3.9 g/dL Normal [facility] Comment on above: Performed By: #### C MP #### [facility] [address] [address] [address] Carrington Chandler Glucose [Mass/Vol] 138 mg/dL Critically high 74-106 [facility] Comment on above: Performed By: #### C MP #### [facility] [address] [address] [address] Carrington Chandler Potassium [Moles/Vol] 4.2 mmol/L Normal 3.5-5.1 [facility] Comment on above: Performed By: #### C MP #### [facility] [address] [address] [address] Carrington Chandler Protein [Mass/Vol] 7.6 g/dL Normal 6.4-8.2 [facility] Comment on above: Performed By: #### C MP #### [facility] [address] [address] [address] Carrington Chandler Sodium [Moles/Vol] 135 mmol/L Critically low 136-145 [facility] Comment on above: Performed By: #### C MP #### [facility] [address] [address] [address] Carrington Chandler Urea nitrogen [Mass/Vol] 24.0 mg/dL Critically high 7.0-18.0 [facility] Comment on above: Performed By: #### C MP #### [facility] [address] [address] [address] Carrington Chandler Urea nitrogen/Creatinine [Mass ratio] 17.6 mg/mg Normal [facility] Comment on above: Performed By: #### C MP #### [facility] [address] [address] [address] Carrington Chandler XR CHEST 1 Von [...] by: DAREK MARX Date: 2022-02-03 02:09 Normal [facility] Vital Signs Date Time Vital Sign Value Performing Clinician Facility 05-29-2024 15:05-0500 Body height 170.18 cm [facility] 05-29-2024 15:05-0500 Body mass index (BMI) [Ratio] 37.4 kg/m2 [facility] 05-29-2024 15:05-0500 Body weight 108.4 kg [facility] 05-29-2024 15:05-0500 Diastolic blood pressure 69 mm[Hg] [facility] 05-29-2024 15:05-0500 Heart rate 93 /min [facility] 05-29-2024 15:05-0500 SaO2% (BldA) [Mass fraction] 93 % [facility] 05-29-2024 15:05-0500 Systolic blood pressure 124 mm[Hg] [facility] 05-11-2024 14:52-0400 Diastolic blood pressure 72 mm[Hg] [facility] 05-11-2024 14:52-0400 Heart rate 108 /min [facility] 05-11-2024 14:52-0400 SaO2% (BldA) [Mass fraction] 95 % [facility] 05-11-2024 14:52-0400 Systolic blood pressure 118 mm[Hg] [facility] 02-24-2024 14:00-0400 Body height 170.18 cm [facility] 02-24-2024 14:00-0400 Body mass index (BMI) [Ratio] 37.7 kg/m2 [facility] 02-24-2024 14:00-0400 Body weight 109.31 kg [facility] 02-24-2024 14:00-0400 Diastolic blood pressure 63 mm[Hg] [facility] 02-24-2024 14:00-0400 Heart rate 99 /min [facility] 02-24-2024 14:00-0400 Systolic blood pressure 99 mm[Hg] [facility] 01-05-2024 12:56-0400 Body height 170.18 cm [facility] 01-05-2024 12:56-0400 Body mass index (BMI) [Ratio] 38.2 kg/m2 [facility] 01-05-2024 12:56-0400 Body weight 110.78 kg [facility] 01-05-2024 12:56-0400 Diastolic blood pressure 66 mm[Hg] [facility] 01-05-2024 12:56-0400 Heart rate 66 /min [facility] 01-05-2024 12:56-0400 SaO2% (BldA) [Mass fraction] 91 % [facility] 01-05-2024 12:56-0400 Systolic blood pressure 108 mm[Hg] [facility] 12-13-2023 13:44-0400 Body height 171.45 cm [facility] 12-13-2023 13:44-0400 Body mass index (BMI) [Ratio] 37.5 kg/m2 [facility] 12-13-2023 13:44-0400 Body weight 110.22 kg [facility] 12-13-2023 13:44-0400 Diastolic blood pressure 60 mm[Hg] [facility] 12-13-2023 13:44-0400 Heart rate 87 /min [facility] 12-13-2023 13:44-0400 SaO2% (BldA) [Mass fraction] 97 % [facility] 12-13-2023 13:44-0400 Systolic blood pressure 102 mm[Hg] [facility] 11-25-2023 14:56-0400 Body height 2042.16 cm [facility] 11-25-2023 14:56-0400 Body mass index (BMI) [Ratio] 0.2 kg/m2 [facility] 11-25-2023 14:56-0400 Body weight 110.22 kg [facility] 11-25-2023 14:56-0400 Diastolic blood pressure 68 mm[Hg] [facility] 11-25-2023 14:56-0400 Heart rate 71 /min [facility] 11-25-2023 14:56-0400 SaO2% (BldA) [Mass fraction] 93 % [facility] 11-25-2023 14:56-0400 Systolic blood pressure 116 mm[Hg] [facility] 10-26-2023 14:31-0400 Body height 171.45 cm [facility] 10-26-2023 14:31-0400 Body mass index (BMI) [Ratio] 37 kg/m2 [facility] 10-26-2023 14:31-0400 Body weight 108.86 kg [facility] 10-26-2023 14:31-0400 Diastolic blood pressure 65 mm[Hg] [facility] 10-26-2023 14:31-0400 Heart rate 78 /min [facility] 10-26-2023 14:31-0400 SaO2% (BldA) [Mass fraction] 97 % [facility] 10-26-2023 14:31-0400 Systolic blood pressure 103 mm[Hg] [facility] 10-04-2023 15:13-0400 Body height 171.45 cm [facility] 10-04-2023 15:13-0400 Body mass index (BMI) [Ratio] 36.7 kg/m2 [facility] 10-04-2023 15:13-0400 Body weight 108.04 kg [facility] 10-04-2023 15:13-0400 Diastolic blood pressure 63 mm[Hg] [facility] 10-04-2023 15:13-0400 Heart rate 72 /min [facility] 10-04-2023 15:13-0400 SaO2% (BldA) [Mass fraction] 93 % [facility] 10-04-2023 15:13-0400 Systolic blood pressure 95 mm[Hg] [facility] 09-14-2023 09:13-0500 Body height 170.2 cm Alok Armijo DO Work Phone: [facility] 09-14-2023 09:13-0500 Body mass index (BMI) [Ratio] 36.81 kg/m2 Alok Armijo DO Work Phone: [facility] 09-14-2023 09:13-0500 Body weight 106.59 kg Alok Armijo DO Work Phone: [facility] 09-14-2023 09:13-0500 Diastolic blood pressure 70 mm[Hg] Alok Armijo DO Work Phone: [facility] 09-14-2023 09:13-0500 Heart rate 72 /min Alok Armijo DO Work Phone: [facility] 09-14-2023 09:13-0500 Systolic blood pressure 118 mm[Hg] Alok Armijo DO Work Phone: [facility] 08-06-2023 13:30-0500 Body height 171.45 cm Brock Modi Other [facility] 08-06-2023 13:30-0500 Body mass index (BMI) [Ratio] 35.95 kg/m2 Brock Modi Other [facility] Other 08-06-2023 13:30-0500 Body weight 105.69 kg Brock Modi Other [facility] Other 08-06-2023 13:30-0500 Body weight 105.68 kg [facility] 08-06-2023 13:30-0500 Diastolic blood pressure 66 mm[Hg] Brock Modi Other [facility] 08-06-2023 13:30-0500 SaO2% (BldA) [Mass fraction] 95 % Brock Modi Other [facility] Other 08-06-2023 13:30-0500 Systolic blood pressure 108 mm[Hg] Brock Modi Other [facility] 08-05-2023 14:23-0500 Diastolic blood pressure 76 mm[Hg] Christopher Sewell MD Work Phone: [facility] 08-05-2023 14:23-0500 Heart rate 70 /min Christopher Sewell MD Work Phone: [facility] 08-05-2023 14:23-0500 Systolic blood pressure 108 mm[Hg] Christopher Sewell MD Work Phone: [facility] 08-05-2023 14:22-0500 Body height 170.2 cm Christopher Sewell MD Work Phone: [facility] 08-05-2023 14:22-0500 Body mass index (BMI) [Ratio] 36.43 kg/m2 Christopher Sewell MD Work Phone: [facility] 08-05-2023 14:22-0500 Body weight 105.51 kg Christopher Sewell MD Work Phone: [facility] 08-05-2023 14:22-0500 Respiratory rate 18 /min Christopher Sewell MD Work Phone: [facility] 06-24-2023 11:00-0500 Body height 171.45 cm Brock Modi Other [facility] Other 06-24-2023 11:00-0500 Body mass index (BMI) [Ratio] 34.56 kg/m2 Brock Modi Other [facility] Other 06-24-2023 11:00-0500 Body temperature 98.1 [degF] Brock Modi Other [facility] Other 06-24-2023 11:00-0500 Body weight 101.61 kg Brock Modi Other [facility] Other 06-24-2023 11:00-0500 Diastolic blood pressure 67 mm[Hg] Brock Modi Other [facility] Other 06-24-2023 11:00-0500 SaO2% (BldA) [Mass fraction] 95 % Brock Modi Other [facility] Other 06-24-2023 11:00-0500 Systolic blood pressure 109 mm[Hg] Brock Modi Other [facility] Other 03-16-2023 11:30-0400 Body height 171.45 cm Brock Modi Other [facility] Other 03-16-2023 11:30-0400 Body mass index (BMI) [Ratio] 33.48 kg/m2 Brock Modi Other [facility] Other 03-16-2023 11:30-0400 Body weight 98.43 kg Brock Modi Other [facility] Other 03-16-2023 11:30-0400 Diastolic blood pressure 67 mm[Hg] Brock Modi Other [facility] Other 03-16-2023 11:30-0400 SaO2% (BldA) [Mass fraction] 93 % Brock Modi Other [facility] Other 03-16-2023 11:30-0400 Systolic blood pressure 114 mm[Hg] Brock Modi Other [facility] Other 02-04-2023 13:30-0400 Body height 171.45 cm Brock Modi Other [facility] Other 02-04-2023 13:30-0400 Body mass index (BMI) [Ratio] 33.64 kg/m2 Brock Modi Other [facility] Other 02-04-2023 13:30-0400 Body weight 98.88 kg Brock Modi Other [facility] Other 02-04-2023 13:30-0400 Diastolic blood pressure 67 mm[Hg] Brock Modi Other [facility] Other 02-04-2023 13:30-0400 SaO2% (BldA) [Mass fraction] 96 % Brock Modi Other [facility] Other 02-04-2023 13:30-0400 Systolic blood pressure 117 mm[Hg] Brock Modi Other [facility] Other 12-24-2022 14:08-0400 Body height 167.64 cm Brock Modi Work Phone: [employer] DO Work Phone: 12-24-2022 14:08-0400 Body mass index (BMI) [Ratio] 35.02 kg/m2 Brock Modi Work Phone: [employer] DO Work Phone: 12-24-2022 14:08-0400 Body surface area Derived from formula 2.07 m2 Brock Modi Work Phone: [employer] DO Work Phone: 12-24-2022 14:08-0400 Body weight 98.43 kg Brock Modi Work Phone: [employer] DO Work Phone: 12-24-2022 14:08-0400 Diastolic blood pressure 80 mm[Hg] Brock Modi Work Phone: [employer] DO Work Phone: 12-24-2022 14:08-0400 Heart rate 115 /min Brock Modi Work Phone: [facility] 250 DO Work Phone: 12-24-2022 14:08-0400 Systolic blood pressure 124 mm[Hg] Brock Modi Work Phone: [facility] [place] [facility] DO Work Phone: 11-27-2022 11:00-0400 Body height 171.45 cm Wagner Marrufo Other [facility] Other 11-27-2022 11:00-0400 Body mass index (BMI) [Ratio] 33.48 kg/m2 Wagner Fernandezley Other [facility] Other 11-27-2022 11:00-0400 Body weight 98.43 kg Wagner Fernandezley Other [facility] Other 11-12-2022 12:45-0400 Body height 171.45 cm Brock Modi Other [facility] Other 11-12-2022 12:45-0400 Body mass index (BMI) [Ratio] 33.48 kg/m2 Brock Modi Other [facility] Other 11-12-2022 12:45-0400 Body weight 98.43 kg Brock Modi Other [facility] Other 11-12-2022 12:45-0400 Diastolic blood pressure 78 mm[Hg] Brock Modi Other [facility] Other 11-12-2022 12:45-0400 SaO2% (BldA) [Mass fraction] 92 % Brock Modi Other [facility] Other 11-12-2022 12:45-0400 Systolic blood pressure 122 mm[Hg] Brock Modi Other [facility] Other 10-21-2022 15:18-0400 Body height 167.64 cm Brock Modi Work Phone: [facility] 250 DO Work Phone: 10-21-2022 15:18-0400 Body mass index (BMI) [Ratio] 35.51 kg/m2 Brock Modi [facility] 250 DO Work Phone: 10-21-2022 15:18-0400 Body surface area Derived from formula 2.08 m2 Brock Modi Work Phone: [facility] 250 DO Work Phone: 10-21-2022 15:18-0400 Body weight 99.79 kg Brock Modi Work Phone: [facility] 250 DO Work Phone: 10-21-2022 15:18-0400 Diastolic blood pressure 70 mm[Hg] Brock Modi Work Phone: [facility] 250 DO Work Phone: 10-21-2022 15:18-0400 Heart rate 84 /min Brock Modi Work Phone: [facility] 250 DO Work Phone: 10-21-2022 15:18-0400 Systolic blood pressure 126 mm[Hg] Brock Modi Work Phone: [facility] 250 DO Work Phone: 10-15-2022 11:15-0400 Body height 171.45 cm Brock Modi Other [facility] Other 10-15-2022 11:15-0400 Body mass index (BMI) [Ratio] 33.33 kg/m2 Brock Modi Other [facility] Other 10-15-2022 11:15-0400 Body weight 97.98 kg Brock Modi Other [facility] Other 10-15-2022 11:15-0400 Diastolic blood pressure 84 mm[Hg] Brock Modi Other [facility] Other 10-15-2022 11:15-0400 SaO2% (BldA) [Mass fraction] 94 % Brock Modi Other [facility] Other 10-15-2022 11:15-0400 Systolic blood pressure 122 mm[Hg] Brock Modi Other [facility] Other 10-13-2022 11:57-0400 Body temperature 97.4 [degF] MD Brock Modi Work Phone: [facility] 10-13-2022 11:57-0400 Diastolic blood pressure 85 mm[Hg] MD Brock Modi Work Phone: [facility] 10-13-2022 11:57-0400 Heart rate 107 /min MD Brock Modi Work Phone: [facility] 10-13-2022 11:57-0400 Inhaled oxygen flow rate 2 L/min MD Brock Modi Work Phone: [facility] 10-13-2022 11:57-0400 Respiratory rate 17 /min MD Brock Modi Work Phone: [facility] 10-13-2022 11:57-0400 SaO2% (BldA) [Mass fraction] 97 % MD Brock Modi Work Phone: [facility] 10-13-2022 11:57-0400 Systolic blood pressure 125 mm[Hg] MD Brock Modi Work Phone: [facility] 10-13-2022 04:32-0400 Body weight 97.52 kg MD Brock Modi Work Phone: [facility] 10-10-2022 08:46-0400 65 1 Brock Modi Work Phone: [facility] 250 DO Work Phone: Comment on above: [id number] 10-10-2022 04:57-0400 Body height 170.18 cm MD Brock Modi Work Phone: [facility] 09-09-2022 14:30-0500 Body height 171.45 cm Wagner Marrufo Other [facility] Other 09-09-2022 14:30-0500 Body mass index (BMI) [Ratio] 34.41 kg/m2 Wagner Marrufo Other [facility] Other 09-09-2022 14:30-0500 Body weight 101.15 kg Wagner Marrufo Other [facility] Other 08-13-2022 12:15-0500 Body height 171.45 cm Brock Modi Other [facility] Other 08-13-2022 12:15-0500 Body mass index (BMI) [Ratio] 34.38 kg/m2 Brock Modi Other [facility] Other 08-13-2022 12:15-0500 Body weight 101.06 kg Brock Modi Other [facility] Other 08-13-2022 12:15-0500 Diastolic blood pressure 84 mm[Hg] Brock Modi Other [facility] Other 08-13-2022 12:15-0500 SaO2% (BldA) [Mass fraction] 97 % Brock Modi Other [facility] Other 08-13-2022 12:15-0500 Systolic blood pressure 132 mm[Hg] Brock Modi Other [facility] Other 07-30-2022 12:30-0500 Body height 171.45 cm Brock Modi Other [facility] Other 07-30-2022 12:30-0500 Body mass index (BMI) [Ratio] 32.71 kg/m2 Brock Modi Other [facility] Other 07-30-2022 12:30-0500 Body weight 96.16 kg Brock Modi Other [facility] Other 07-30-2022 12:30-0500 Diastolic blood pressure 80 mm[Hg] Brock Modi Other [facility] Other 07-30-2022 12:30-0500 SaO2% (BldA) [Mass fraction] 97 % Brock Modi Other [facility] Other 07-30-2022 12:30-0500 Systolic blood pressure 122 mm[Hg] Brock Modi Other [facility] Other Encounters Encounter Date Encounter Type Care Provider Facility Start: 05-29-2024 End: 05-29-2024 ambulatory [facility] Work Phone: Start: 05-29-2024 End: 05-29-2024 Patient encounter procedure [facility] Work Phone: Start: 05-26-2024 Non-patient / Non-visit [facility] Work Phone: Start: 05-11-2024 Non-patient / Non-visit [facility]ician [facility] Work Phone: Start: 05-08-2024 Non-patient / Non-visit [facility] Physician [facility] Work Phone: Start: 05-07-2024 Non-patient / Non-visit [facility] Work Phone: Start: 03-03-2024 End: 03-03-2024 ambulatory [facility] Start: 02-24-2024 End: 02-24-2024 ambulatory [facility] Work Phone: Start: 02-24-2024 End: 02-24-2024 Patient encounter procedure [facility] Work Phone: Start: 01-05-2024 End: 01-05-2024 ambulatory [facility] Work Phone: Start: 01-05-2024 End: 01-05-2024 Patient encounter procedure [facility] Work Phone: Start: 12-13-2023 End: 12-13-2023 ambulatory [facility] Work Phone: Start: 12-13-2023 End: 12-13-2023 Patient encounter procedure [facility] Work Phone: Start: 11-25-2023 End: 11-25-2023 Patient encounter procedure [facility] Work Phone: Start: 10-26-2023 End: 10-26-2023 ambulatory [facility] Work Phone: Start: 10-26-2023 End: 10-26-2023 Patient encounter procedure [facility] Work Phone: Start: 10-09-2023 Non-patient / Non-visit [facility] Work Phone: Start: 10-04-2023 End: 10-04-2023 Patient encounter procedure [facility] [place] Work Phone: Start: 10-04-2023 Non-patient / Non-visit [facility] Work Phone: Start: 10-04-2023 End: 10-04-2023 ambulatory CHRISTOPHER SEWELL [facility] Start: 09-14-2023 End: 09-14-2023 ambulatory [facility] Start: 09-14-2023 End: 09-14-2023 Office outpatient visit 15 minutes [facility] DO Work Phone: [facility] Comment on above: Atherosclerosis of n ative coronary artery of [place] heart without angina pectoris; Essential hypertension, benign; Mixed hyperlipidemia; Ischemic cardiomyopathy; Past myocardial infarction; Moderate chronic obstructive pulmonary disease (CMS/HCC); Obesity (BMI 35.0-39.9 without comorbidity); Current smoker Start: 09-03-2023 End: 09-03-2023 ambulatory Brock Modi Other [facility] Other Start: 09-03-2023 Telephone encounter Brock Modi [facility] Start: 08-24-2023 Orders Only Kendal Carmen INSPECTOR [facility] Comment on above: Abdominal aortic ane urysm (AAA) without rupture, unspecified part (CMS-HCC) (Primary Dx); Obstructive chronic bronchitis with exacerbation (CMS-HCC); Obesity with body mass index (BMI) of 30.0 to 39.9 Start: 08-06-2023 End: 08-06-2023 ambulatory Brock Modi Other [facility] Other Start: 08-06-2023 Office outpatient vi sit 15 minutes Brock Modi [facility] Start: 08-06-2023 End: 08-06-2023 Patient encounter procedure [facility] [place] Work Phone: Start: 08-05-2023 End: 08-05-2023 ambulatory CHRISTOPHER SEWELL [facility] Other Start: 08-05-2023 Telephone encounter Brock Modi [facility] Start: 08-05-2023 End: 08-05-2023 Office outpatient visit 15 minutes Christopher Sewell MD Work Phone: [facility] Comment on above: Abdominal aortic ane urysm (AAA) without rupture, unspecified part ([facility]-HCC) (Primary Dx); Obstructive chronic bronchitis with exacerbation ([facility]-HCC); Obesity with body mass index (BMI) of 30.0 to 39.9; Chronic obstructive pulmonary disease, unspecified COPD type ([facility]) Start: 07-16-2023 End: 07-16-2023 ambulatory Brock Modi Other [facility] Other Start: 07-16-2023 Telephone encounter Brock Modi [facility] Start: 06-24-2023 End: 06-24-2023 ambulatory Brock Modi Other [facility] Other Start: 06-24-2023 Office outpatient vi sit 15 minutes Brock Modi [facility] Start: 04-07-[address] Alok chauhna Akbar Facility: Start: 04-02-2023 End: 04-02-2023 ambulatory Brock Modi Other [facility] Other Start: 04-02-2023 Telephone encounter Brock Modi [facility] Start: 03-19-2023 End: 03-19-2023 ambulatory Brock Modi Other [facility] Other Start: 03-19-2023 Telephone encounter Brock Modi [facility] Start: 03-16-2023 End: 03-16-2023 ambulatory Brock Modi Other [facility] Other Start: 03-16-2023 Office outpatient vi sit 15 minutes Brock Modi [facility] Start: 02-04-2023 End: 02-04-2023 ambulatory Brock Modi Other [facility] Other Start: 02-04-2023 Office outpatient vi sit 15 minutes Brock Modi [facility] Start: 01-29-2023 End: 01-29-2023 ambulatory Viral Yang Other [facility] Other Start: 01-29-2023 Telephone encounter Viral Yang [facility] Start: 01-27-2023 Rx Renewal Brock Modi Work Phone: [facility] 250 DO Work Phone: Start: 01-19-2023 Patient encounter procedure Brock Modi Work Phone: [facility] [address] [place] Work Phone: Start: 01-14-2023 End: 01-14-2023 ambulatory Brock Modi Other [facility] Other Start: 01-14-2023 Telephone encounter Brock Modi [facility] Start: 12-24-2022 Office outpatient vi sit 40 minutes Brock Modi Work Phone: [facility] 250 DO Work Phone: Start: 12-24-[address] Alok Armijo Facility: Start: 12-04-2022 End: 12-04-2022 ambulatory Brock Modi Other [facility] Other Start: 12-04-2022 Telephone encounter Brock Modi [facility] Start: 12-03-2022 End: 12-03-2022 ambulatory Brock Modi Other [facility] Other Start: 12-03-2022 Telephone encounter Brock Modi [facility] Start: 11-27-2022 End: 11-27-2022 ambulatory Wagner Marrufo Other [employer] Other Start: 11-27-2022 Office outpatient vi sit 25 minutes Wagner Marrufo [facility] Start: 11-12-2022 End: 11-12-2022 ambulatory Brock Modi Other [facility] Other Start: 11-12-2022 Office outpatient vi sit 15 minutes Brock Modi [facility] Start: 11-04-2022 ambulatory JANINE BOYKINLARON Facili ty:H1 Start: 11-03-2022 End: 11-03-2022 Patient encounter procedure MD Brock Modi Work Phone: [facility] [place] Work Phone: Start: 11-03-2022 End: 11-03-2022 ambulatory MD Brock Modi Work Phone: [facility] Work Phone: Start: 11-02-2022 Patient encounter procedure Brock Modi Work Phone: [facility] 250 DO Work Phone: Start: 11-02-2022 ambulatory Janine Cunha Facility:1 [id number] Start: 10-29-2022 Chart Update Brock Modi Work Phone: [facility] 600 DO Work Phone: Start: 10-28-2022 End: 10-28-2022 ambulatory MD Brock Modi Work Phone: [facility] Work Phone: Start: 10-28-2022 End: 10-28-2022 Patient encounter procedure MD Brock Modi Work Phone: [facility] [place] Work Phone: Start: 10-27-2022 End: 10-27-2022 ambulatory Brock Modi Other [facility] Other Start: 10-27-2022 Telephone encounter Brock Modi [facility] Start: 10-21-2022 Transitional care juan diego neri srvc 14 day discharge Brock Modi Work Phone: [facility] 250 DO Work Phone: Start: 10-21-2022 End: 10-21-2022 ambulatory Janine Cunha [employer] Other Start: 10-21-2022 Telephone encounter Adi Campos [employer] Start: 10-20-2022 End: 10-20-2022 ambulatory Adi Campos Other [facility] Other Start: 10-20-2022 Office outpatient ne w 45 minutes Adi Campos [facility] Start: 10-15-2022 End: 10-15-2022 ambulatory Brock Modi Other [employer] Other Start: 10-15-2022 Office outpatient vi sit 15 minutes Brock Modi [facility] Start: 10-10-[address] Brock Modi Facility:[id number] Start: 10-10-2022 End: 10-13-2022 Evaluation and management of inpatient MD Brock Modi Work Phone: [facility] [place] [employer] Work Phone: Start: 10-10-2022 End: 10-10-2022 ambulatory COLIN TREADWELL Facility:H1 Start: 09-09-2022 Office outpatient ne w 45 minutes Wagner Marrufo [facility] Start: 09-09-2022 End: 09-09-2022 ambulatory DO Wagner Marrufo Work Phone: [facility] Work Phone: Start: 09-09-2022 End: 09-09-2022 Patient encounter procedure DO Wagner Marrufo Work Phone: [facility] Start: 09-07-2022 End: 09-08-2022 ambulatory COLIN TREADWELL Facility:H1 Start: 08-13-2022 End: 08-13-2022 ambulatory Brock Modi Other [facility] Other Start: 08-13-2022 Office outpatient vi sit 15 minutes Brock Modi [facility] Start: 08-10-2022 End: 08-11-[address] BROCK MODI Facility:H1 Start: 07-30-2022 End: 07-30-2022 ambulatory Brock Modi Other [facility] Other Start: 07-30-2022 Office outpatient vi sit 25 minutes Brock Modi [facility] Start: 07-28-2022 End: 07-28-2022 ambulatory Brock Modi Other [employer] Other Start: 07-28-2022 Telephone encounter Brock Modi [facility] Start: 07-10-2022 End: 07-11-[address] CAR LIGHT Facility:H1 Start: 07-08-2022 End: 07-08-[address] JANELLE LAL . Facility:H1 Start: 07-05-2022 End: 07-05-[address] RUBÉN DALY Facility:H1 Start: 07-03-2022 End: 07-04-[address] ARLIN CUNHA Facility:H1 Start: 02-03-2022 End: 02-03-[address] ARLIN CUNHA Facility:H1 Patient encounter status Brock Modi Work Phone: [facility] 250 DO Work Phone: Procedures Date Procedure [...] 64 Years) (3 - PPSV23 or PCV20) [facility] Start: 09-20-2024 End: 09-20-2024 Patient encounter procedure 09/20/2024 9:00 AM EST Office Visit [facility] [address] [facility] [address] [place] [id number] Alok Armijo DO [address] [facility] [address] [place] [address] [facility] Start: 08-05-2024 Adult BMI Screening Adult BMI Screen ing [facility] Start: 08-05-2024 Tobacco Screening Tobacco Screening [facility] Start: 02-17-2024 End: 02-17-2024 Patient encounter procedure 02/17/2024 10:10 AM EDT [facility] [address] [place] [address] Rom Pierre MD [address], [facility] [address] [place] [address] [facility] Start: 09-05-2023 Tobacco Counseling Tobacco Counselbernadine titus [facility] Start: 08-24-2023 End: 08-24-2024 CTA Abdominal vessels and Pelvis vessels W contrast IV CT angiogram abdomen and pelvis Imaging Routine Abdominal Aortic Aneurysm (Aaa) Without Rupture, Unspecified Part (Cms-Hcc) Obstructive chronic bronchitis with exacerbation (CMS-HCC) Obesity with body mass index (BMI) of 30.0 to 39.9 Expected: 08/24/2023, Expires: 08/24/2024 [employer] Work Phone: Comment on above: Expected: 08/24/2023 [...] COPD type (CMS-HCC) Expected: 08/22/2023, Expires: 08/22/2024 [employer] Work Phone: Comment on above: Expected: 08/22/2023 , Expires: 08/22/2024 Start: 04-07-2023 FUV, Provider: Alok Armijo, Status: Pen, Time: 11:20 AM FUV, Provider: Alok Armijo, Status: Pen, Time: 11:20 AM [facility] 250 DO Work Phone: Start: 03-26-2023 Influenza vaccination [facility] Start: 01-19-2023 FUV, Provider: Alok Armijo, Status: Pen, Time: 2:30 PM FUV, Provider: Alok Armijo, Status: Pen, Time: 2:30 PM [facility] 250 DO Work Phone: Start: 11-02-2022 HOLTER 48, Provider: VERONICA LANGLEY TRIAL EXAMINER 1,[id number], Status: Pen, Time: 2:30 PM HOLTER 48, Provider: VERONICA LANGLEY TRIAL EXAMINER 1,[id number], Status: Pen, Time: 2:30 PM [facility] 250 DO Work Phone: Start: 10-13-2022 [facility] Start: 10-10-2022 Dilation of Coronary Artery, Two Arteries with Three Drug-eluting Intraluminal Devices, Percutaneous Approach Dilation of Coronary Artery, Two Arteries with Three Drug-eluting Intraluminal Devices, Percutaneous Approach [facility] Start: 10-10-2022 Fluoroscopy of Left Heart using Low Osmolar Contrast Fluoroscopy of Left Heart using Low Osmolar Contrast [facility] Start: 10-10-2022 Fluoroscopy of Multi ple Coronary Arteries using Low Osmolar Contrast Fluoroscopy of Multiple Coronary Arteries using Low Osmolar Contrast [facility] Start: 10-10-2022 Measurement of Cardi ac Sampling and Pressure, Left Heart, Percutaneous Approach Measurement of Cardiac Sampling and Pressure, Left Heart, Percutaneous Approach [facility] Start: 10-10-2022 Hospital admission [facility] [facility] Start[facility] 10-10-2022 [facility] Start: 10-10-2022 Hospital admission [facility] Start: 10-10-2022 [facility] Start: 2010 Administration of varicella zoster vaccine Zoster (Shingles) Vaccine (1 of 2) [facility] Start: 2010 Zoster Vaccines (1 of 2) Zoste r Vaccines (1 of 2) [facility] Start: 1982 DTaP/Tdap/Td Vaccine s (1 - Tdap) DTaP/Tdap/Td Vaccines (1 - Tdap) [facility] Start: 1979 DTaP,Tdap and Td Vac cines (1 - Tdap) DTaP,Tdap and Td Vaccines (1 - Tdap) [facility] Start: 1978 Adult BMI Follow Up Plan Adult BMI Follow Up Plan [facility] Start: 1978 Diabetes mellitus screening Diabetes Screening [facility] Start: 1978 Hepatitis C screening Hepatitis C Sc malia [facility] Start: 1972 Depression Screening Depression Scre devin [facility] Start: 1961 MMR Vaccines (1 of 1 - Standard series) MMR Vaccines (1 of 1 - Standard series) [facility] Start: 1960 COVID-19 Vaccine (#1) COVID-19 Vacci ne (#1) [facility] Start: 1960 HIV screening HIV Screening [facility] Start: 1960 Lipid panel Lipid Panel [facility] Start: 1960 Screening for malign ant neoplasm of colon [facility] Start: 1960 Yearly Adult Physical Yearly Adult P hysical [facility] End: 08-22-2024 Creatinine includes GFR, serum Creatinine includes GFR, serum Lab Routine Abdominal Aortic Aneurysm (Aaa) Without Rupture, Unspecified Part ([facility]) Obstructive chronic bronchitis with exacerbation ([facility]) Obesity with body mass index (BMI) of 30.0 to 39.9 Chronic obstructive pulmonary disease, unspecified COPD type ([facility]) 1 Occurrences starting 08/22/2023 until 08/22/2024 [employer] Comment on above: 1 Occurrences starti ng 08/22/2023 until 08/22/2024 End: 08-24-2024 Creatinine includes GFR, serum Creatinine includes GFR, serum Lab Routine Abdominal Aortic Aneurysm (Aaa) Without Rupture, Unspecified Part ([facility]) Obstructive chronic bronchitis with exacerbation ([facility]) Obesity with body mass index (BMI) of 30.0 to 39.9 1 Occurrences starting 08/24/2023 until 08/24/2024 [employer] Work Phone: Comment on above: 1 Occurrences starti ng 08/24/2023 until 08/24/2024 Patient Education Coronary Angio plasty (DC) Coronary Stenting (DC) Angina (DC) Chest Pain (DC) Drug Eluting Stents [facility] Work Phone: Patient referral [facility] Work Phone: US Lower extremity v ein - right [facility] Immunizations Immunization Date Immunization Notes Care Provider Fa cility 05-02-2018 pneumococcal Conjuga te, unspecified formulation; Translations: [Need for prophylactic vaccination against Streptococcus pneumoniae (pneumococcus)] Brock Modi Other [facility] Other 05-02-2018 pneumococcal polysaccharide vaccine, 23 valent Brock Modi Work Phone: [facility] 05-26-2017 pneumococcal conjuga te vaccine, 13 errol Brock Urbano Ly Work Phone: [facility] Payers Date Payer Category Payer Medicaid [facility] RADHA TAS MEDICAID [facility] MATILDE MEDICAID [id number] 2022-Present [address] [place] [address] [id number] 2022 Medicaid [id number] 2022 Self-pay 2019 Unknown 1960 Unknown [id number] 2.16.840.1.872579.3.579.2.593 1960 Unknown [id number] 2.16.840.1.631257.3.579.2.593 1960 Unknown [id number] 2.16.840.1.114055.3.579.2.593 1960 Unknown [id number] 2.16.840.1.408775.3.579.2.593 1960 Unknown [id number] 2.16.840.1.600846.3.579.2.593 1960 Unknown [id number] 2.16.840.1.429716.3.579.2.593 1960 Unknown [id number] 2.16.840.1.499504.3.579.2.593 1960 Unknown [id number] 2.16.840.1.685309.3.579.2.593 1960 Unknown [id number] 2.16.840.1.162784.3.579.2.593 1960 Unknown [id number] 2.16.840.1.471558.3.579.2.356 1960 Unknown [id number] 2.16.840.1.799473.3.579.2.356 1960 Unknown [id number] 2.16.840.1.505265.3.579.2.356 1960 Unknown [id number] 2.16.840.1.279615.3.579.2.356 1960 Unknown [id number] 2.16.840.1.825554.3.579.2.356 1960 Unknown [id number] 2.16.840.1.064028.3.579.2.1286 1960 Unknown [id number] 2.16.840.1.118161.3.579.2.1244 1960 Unknown [id number] 2.16.840.1.144522.3.579.2.1286 1960 Unknown [id number] 2.16.840.1.933330.3.579.2.1286 1959 Unknown [id number] 2.16.840.1.564595.19 Unknown [id number] 2.16.840.1.157966.3.579.2.531 Social History Date Type Detail Facility Tobacco smoking stat [facility] Unknown if ever smoked [facility] Work Phone: Start: 1960 Sex Assigned At Male [facility] Start: 08-05-2023 End: 08-06-2023 Sex Assigned At [employer] [facility] [employer] Other Start: 10-10-2022 End: 10-10-2022 Tobacco smoking status NHIS Smoker (finding) [facility] Start: 08-26-2022 End: 08-06-2023 Daily caffeine consumption Daily caffeine consumption -[facility] 250 DO Work Phone: Comment on above: 1/2 gallon coffee da darrion; 5-6 cig daily; 8 cigs daily; Start: 08-26-2022 End: 09-14-2023 Tobacco smoking status INIS Smokes tobacco daily [facility] [employer] Start: 01-14-1992 History of tobacco use Cigarette Smo ker [facility] Start: 08-26-2022 Tobacco use and exposure Smokeless tobacco [facility] Start: 08-05-2023 End: 09-14-2023 Alcohol intake Lif[facility]-drinker (finding) [facility] Within the past 12 months we worried whether our food would run out before we got money to buy more. Never [facility] Start: 08-26-2022 Tobacco Comment pack and a nathanael f a day pt reports he is really trying to quit 09/04/21 [facility] Start: 1960 Sex Assigned At Not on file P [employer] Start: 09-04-2023 End: 09-14-2023 Exposure to SARS-CoV-2 (event) Not sure [facility] Medical Equipment Procedure Code Equipment Code Equipment Origin al Text Equipment Identifier Dates Drug-eluting coronary artery stent, nrf-dzfmwxkhguquk-oo lymer-coated ()[id number] [id number] FDA Start: 10-10-2022 Drug-eluting coronary artery stent, qzd-mxyjzyjkvvyxs-vw lymer-coated ()[id number] [id number] FDA Start: 10-10-2022 Drug-eluting coronary artery stent, dxj-givupwuutjgxm-yl lymer-coated ()[id number] [id number] FDA Start: 10-10-2022 Goals Date Patient Goal Desired Activity /State Functional Status Date Assessment Result Facility 10-13-2022 Functional status Patient at Baseline [facility] Work Phone: Mental Status Date Assessment Result Facility 10-13-2022 Cognitive function Cognitive Sta tus Patient at Baseline [facility] Work Phone: Clinical Notes 07-30-2022 to 09-14-2023 [...] ASHD; patient sustained high risk non-ST elevation WA in October 10, 2022 with primary revascularization [...] remains compliant on current DAPT and post WA therapies Recommendations: Discontinue ticagrelor, switch to clopidogrel [...] Disp: , Rfl: Assessment/Plan 1. Atherosclerosis of y[place]apai-apache coronary artery of y[place]apai-apache heart without angina pectoris 2. Essential hypertension, [...] discussion and plan. documented in this encounter [facility] Work Phone: 09-14-2023 Instructions Kate Cruz LPN [...] instructions on exercise. documented in this encounter [facility] Work Phone: 08-06-2023 Evaluation note Encounter Date [...] 6 months with imaging at that time. [facility] Other 01-11-2024 History of Present illness Narrative* [...] aortic aneurysm (AAA) without rupture, unspecified part ([facility]) - [facility] [place], [place] - CT angiogram abdomen and pelvis; Future - Creatinine includes GFR, serum; Future Obstructive chronic bronchitis with exacerbation ([facility]) - CT angiogram abdomen and pelvis; Future - Creatinine includes GFR, serum; Future Obesity with body mass index (BMI) of 30.0 to 39.9 - CT angiogram abdomen and pelvis; Future - Creatinine includes GFR, serum; Future Chronic obstructive pulmonary disease, unspecified COPD type ([facility]) - CT angiogram abdomen and pelvis; Future - Creatinine includes GFR, serum; Future Patient with infrarenal abdominal aortic aneurysm. His most recent duplex ultrasound shows 5.2 cm and that was in June of 2023. At this point I will see him back in 6 months with a follow-up CT angiogram. [id number] Evaluation note* Encounter Date Diagnosis Assessment Notes Treatment Notes Treatment Clinical Notes Jun, Abdominal aortic aneurysm (AAA) without rupture, unspecified part (ICD-10 - I71.40) [facility] Other 11-30-2023 Evaluation note* Encounter Date Diagnosis Assessment Notes Treatment Notes Treatment Clinical Notes May, Abdominal aortic aneurysm (AAA) without rupture, unspecified part (ICD-10 - I71.40) Pt requests order as he is overdue for recheckUS. May, Bronchitis (ICD-10 - J40) Finish meds and treatment plan ordered by ER recently. Pt understands as he is improving. [facility] Other 08-25-2023 Evaluation note* Encounter Date Diagnosis Assessment Notes Treatment Notes Treatment Clinical Notes Feb, Acute cystitis without hematuria (ICD-10 - N30.00) [facility] Other 08-22-2023 Evaluation note* Encounter Date Diagnosis Assessment Notes Treatment Notes Treatment Clinical Notes Feb, Penile discharge (ICD-10 - R36.9) Pt request STI testing Feb, Dysuria (ICD-10 - R30.0) Rule out UTI based on symptoms. Will call w results. Push fluids. Feb, Chronic obstructive pulmonary disease, unspecified (ICD-10 - J44.9) Clinical diagnosis secondary to [id number]-qssh history of tobacco abuse. He will need PFTs in the future. Discussed missed appts w Dr. Campos and sleep lab. He states he will not followup there as he doesn't want to do a lung biopsy. His resp symptoms are improved overall. He expresses understanding on the severity of his condition and he chooses not to followup. [facility] Other 07-13-2023 Evaluation note* Encounter Date Diagnosis Assessment Notes Treatment Notes Treatment Clinical Notes Jan, COPD, moderate (ICD-10 - J44.9) Reminded him to keep appt w Dr. Campos on 02/10. Continue home medications. Avoid going outside with there is haze. Jan, Other sleep disorders (ICD-10 - G47.8) Gave number for the [facility] Sleep lab. He missed his last appt as his daughter had COVID. He will call to reschedule. [facility] Other 07-07-2023 Evaluation note* Encounter Date Diagnosis Assessment Notes Treatment Notes Treatment Clinical Notes Jan, Situational anxiety (ICD-10 - F41.8) [facility] Other 05-11-2023 Evaluation note* Encounter Date Diagnosis Assessment Notes Treatment Notes Treatment Clinical Notes November, Situational anxiety (ICD-10 - F41.8) [facility] Other 05-05-2023 Evaluation note* Encounter Date Diagnosis [...] any surgical interventions. Tobacco cessation program at [facility] has been recommended and offered as well as the national Quitline 8-131-XQOW-NOW. We have discussed pharmacologic treatment including nicotine replacement therapy which can lead to a positive nicotine test as well as nicotine free medications both of which will need to be managed by their PCP. We have provided handout for the [facility] Tobacco Cessation Program. This discussion was limited to 5 minutes. [facility] Other 04-20-2023 Evaluation note* Encounter Date Diagnosis Assessment Notes Treatment Notes Treatment Clinical Notes Oct, Chronic obstructive pulmonary disease, unspecified COPD type (ICD-10 - J44.9) Will resume inhalers as prescribed. Keep appt w Dr. Campos. Notes frequent dyspnea, agrees to a prednisone course. Oct, INOCENTE (obstructive sleep apnea) (ICD-10 - G47.33) I called [facility]. He has to meet with the sleep specialist before the test is done, even though it was already ordered. I gave him the date of the appt. I also ordered the test. Oct, Coronary artery disease involving y[place]apai-apache heart without angina pectoris, unspecified vessel or lesion type (ICD-10 - I25.10) Continued followup w [facility]. Continue time off work until breathing status is improved. [facility] Other 03-28-2023 Evaluation note* Encounter Date Diagnosis Assessment Notes Treatment Notes Treatment Clinical Notes Sep, Chronic obstructive pulmonary disease, unspecified COPD type (ICD-10 - J44.9) Trelegy samples and training please Sep, Atelectasis of right lung (ICD-10 - J98.11) Please obtain any previous chest CT done at [place] in the past, and have them load onto our PACS Sep, Tobacco use disorder (ICD-10 - F17.200) Sep, Coronary artery disease involving y[place]apai-apache heart without angina pectoris, unspecified vessel or lesion type (ICD-10 - I25.10) [facility] Other 03-23-2023 Evaluation note* Encounter Date Diagnosis Assessment Notes Treatment Notes Treatment Clinical Notes Sep, Coronary artery disease involving y[place]apai-apache coronary artery of y[place]apai-apache heart without angina pectoris (ICD-10 - I25.10) [...] needs a titration study at the least. [facility] Other 03-21-2023 Hospital Discharge instructions Additional Instructions [...] doctor or pharmacist, without first calling the securities counselor who implanted the stent. If you require [...] weight lifting, stair steppers, etc. until the securities counselor approves these activities. Check with the securities counselor on your first follow-up visit. CALL YOUR PHYSICIAN at [phone]: -If bleeding should occur from the catheter insertion site- apply pressure to the site then immediately call us. -Report any fever, redness, drainage, increased swelling, or firmness at the catheter insertion site. Some bruising or slight swelling may be present at the time of discharge. -Should arm or leg become cold, numb, white, or blue, contact the securities counselor immediately. -IF you should experience episodes of [...] is recommended. Please call Central Scheduling at [phone] to schedule your appointment.] The attending securities counselor or [facility] nurse clinician should provide you with specific instructions regarding activity, diet, medications, and further follow up for you. Follow the medication instructions provided on your discharge. If the dosages and instructions on this sheet differ from the dosage and instructions on the bottle, follow the instructions on the bottle. [facility] is not responsible for incorrect prescription information provided by the patient during their visit. Do not stop your medications without consulting your health care provider. Please take the list with you to your next doctor's appointment.[facility] Work Phone: 1(576) 895-547203-21-2023 Progress note Author Rubén Tatum [facility] October 13, 2022 9:02am Note Date/Time October 13, 2022 9:0 2am [facility] [address] [place] [address] Cardiology Progress Note Signed Patient: Hector Gaspar SR MR#: [id number] : 1960 Acct:[id number] Age/Sex: 62 / M Adm Date: 3 Loc: 4P Room: [address] [place] [address] Type: ADM IN Attending Dr: Barbara Rivero [...] postNSTEMI/PCI metoprolol tartrate. 5. Follow-up in [facility] heart clinic within 10 days. From [...] signed by Rubén Tatum MD> 10/13/22 0902 [facility] Work Phone: 1(121) 798-328803-20-2023 Progress note Author Barbaar Rivero [facility] October 12, 2022 2:24pm Note Date/Time October 12, 2022 2:1 2pm [facility] [address] [place] [address] Hospitalist Progress Note Signed Patient: Hector Gaspar SR MR#: [id number] : 1960 Acct:[id number] Age/Sex: 62 / M Adm Date: 3 Loc: Room: [address] [place] [address] Type: ADM IN Attending Dr: Barbara Rivero [...] 10/12/23 09:59 Not Given DAILY@1000 [facility] Fentanyl Citrate 25 mcg 10/10/22 12:23 Fentanyl/Pf [...] this time. (3) Ventricular tachycardia seen on alarm security or surveillance monitor: Plan: No further episodes of ventricular [...] <Electronically signed by Barbara Rivero MD> 10/12/22 1423 [facility] Work Phone: 1(513) 286-706003-20-2023 Progress note Author Rubénkip Tatum [facility] October 12, 2022 10:00am Note Date/Time October 12, 2022 9:5 9am [facility] [address] [place] [address] Cardiology Progress Note Signed Patient: Hector Gaspar SR MR#: [id number] : 1960 Acct:[id number] Age/Sex: 62 / M Adm Date: 3 Loc: Room: [address] [place] [address] Type: ADM IN Attending Dr: Barbara Rivero [...] pacing device. (3) Ventricular tachycardia seen on alarm security or surveillance monitor: Assessment/Problem Details: Stable no further wide-complex [...] 30 Documented By: Rubén Tatum MD 10/12/22 0963 Signed By: <Electronically signed by Rubén Tatum MD> 10/12/22 1000 [facility] Work Phone: 1(437) 174-340403-19-2023 Progress note Author Barbara Rivero [facility] October 11, 2022 11:24am Note Date/Time October 11, 2022 11: 15am [facility] [address] [place] [address] Hospitalist Progress Note Signed Patient: Hector Gaspar SR MR#: [id number] : 1960 Acct:[id number] Age/Sex: 62 / M Adm Date: 3 Loc: 4 Room: [address] [place] [address] Type: ADM IN Attending Dr: Barbara Rivero [...] smoking cessation. (3) Ventricular tachycardia seen on alarm security or surveillance monitor: Plan: Patient given potassium and magnesium [...] <Electronically signed by Barbara Rivero MD> 10/11/22 112 [facility] Work Phone: 1(735) 123-740803-19-2023 Progress note Author Rubén Tatum [facility] October 11, 2022 9:41am Note Date/Time October 11, 2022 9:3 3am [facility] [address] [place] [address] Cardiology Progress Note Signed Patient: Hector Gaspar SR MR#: [id number] : 1960 Acct:[id number] Age/Sex: 62 / M Adm Date: 3 Loc: 4 Room: [address] [place] [address] Type: ADM IN Attending Dr: Barbara Rivero [...] % (Auto) 63.8 Lymph % (Auto) 21.8 Sanborn % (Auto) 10.2 Eos % (Auto) 3.7 Baso % (Auto) 0.5 Nucleat RBC Rel Count 0.1 Neut # (Auto) 4.2 Lymph # (Auto) 1.4 Sanborn # (Auto) 0.7 Eos # (Auto) 0.2 [...] MPV Neut % (Auto) Lymph % (Auto) Sanborn % (Auto) Eos % (Auto) Baso % (Auto) Nucleat RBC Rel Count Neut # (Auto) Lymph # (Auto) Sanborn # (Auto) Eos # (Auto) Baso # [...] AV node (3) Ventricular tachycardia seen on alarm security or surveillance monitor: Assessment/Problem Details: Not entirely certain that [...] <Electronically signed by Rubén Tatum MD> 10/11/2241 [facility] Work Phone: 1(602) 280-730603-18-2023 Progress note Author Barbara Rivero [facility] October 10, 2022 1:33pm Note Date/Time October 10, 2022 1:3 3pm [facility] [address] [place] [address] Event Note Signed Patient: Hector Gaspar MR#: [id number] : 1960 Acct:[id number] Age/Sex: 62 / M Adm Date: 3 Loc: Room: [address] [place] [address] Type: ADM IN Attending Dr: Barbara Rivero [...] <Electronically signed by Barbara Rivero MD> 10/10/22 3 [facility] Work Phone: 1(629) 480-277403-18-2023 History of Present illness Narrative* Patient presents to the office ambulatory with steady gait. * This is initial in clinic follow-up at [facility]. * October 10, 2022 transferred to [facility] from [facility] d/t NSTEMI. Managed by with uneventful [...] medication regimen. He denies medication side effects. [facility] 250 DO Work Phone: 1(640) 278-150203-18-2023 Procedure [facility]03-18-2023 Procedure [facility]03-18-2023 Consult note Author Rubén Tatum [facility] October 10, 2022 9:54am Note Date/Time October 10, 2022 9:5 1am [facility] [address] [place] [address] Cardiology Consult Note Signed Patient: Hector Gaspar SR MR#: [id number] : 1960 Acct:[id number] Age/Sex: 62 / M Adm Date: 3 Loc: 3T Room: [address] [place] [address] Type: ADM IN Attending Dr: Barbara Rivero MD Copies to: MD Barbara Barry MD Stephen M Tann, MD~ Cardiology HPI History of Present Illness Consult Date: 10/10/22 Reason for Consult: Nausea, non-STEMI HPI: Mr. Gaspar is a 62 year old male with multiple cardiac risk factors but no known prior coronary heart disease who presented to [facility] emergency department lastnight complaining of nausea x2 [...] consistent nausea ever since. He presented to [facility] emergency department last evening with these complaints. In the ER at [place] ECG showed Q waves in the inferolateral [...] trend upward to 6000 and then greater [id number]. Echocardiogram at bedside this morning shows normal [...] Lymph # (Auto) 1.4 1.4 (1.00-4.8) x10E3/uL Sanborn # (Auto) 0.6 0.6 (0.0-0.8) x10E3/uL Eos [...] Dysrhythmias Sinus rhythms and dysrhythmias: sinus rhythm WA, pacemaker, normal Myocardial infarction: inferior WA (old age indeterminate) and lateral WA (acuteor recent) A&P - Cardiology (1) NSTEMI [...] signed by Rubén Tatum MD> 10/10/22 0954 [facility] Work Phone: 1(499) 927-177103-18-2023 History and physical note Author Galo Dent [facility] October 10, 2022 7:28am Note Date/Time October 10, 2022 7:2 8am [facility] [address] [place] [address] Hospitalist H&P Signed Patient: Hector Gaspar SR MR#: [id number] : 1960 Acct:[id number] Age/Sex: 62 / M Adm Date: 3 Loc: 3T Room: [address] [place] [address] Type: ADM IN Attending Dr: Barbara Rivero MD Copies to: MD Barbara Barry MD Mushtaq Mahmood, MD~ HPI DATE OF EXAMINATION: 10/10/22 CHIEF COMPLAINT: Non-ST elevation WA HISTORY OF PRESENT ILLNESS: Patient is a 62-year-old gentleman with history of hypertension, heavy smoking about 1-1/2 pack for 45 years, COPD, strong family history of coronary artery disease, came to us from [place] emergency department last night. Patient presented to [...] The ER physician did talk to the securities counselor here in [facility]. Patient was started on heparin drip, nitro patch was applied. He was sent to our hospital. Upon arrival in the [facility] patient complained about headache. Nitropatch was [...] % (Auto) 27.5 % (.) 10/10/22 06:10 Sanborn % (Auto) 11.4 % (.) 10/10/22 06:10 Eos % (Auto) 4.4 % (.) 10/10/22 06:10 Baso % (Auto) 0.6 % (.) 10/10/22 06:10 Nucleat RBC Rel Count 0.1 /100 WBC (0-0.5) 10/10/22 06:10 Neut # (Auto) 2.9 x10E3/uL (1.8-7.7) 10/10/22 06:10 Lymph # (Auto) 1.4 x10E3/uL (1.00-4.8) 10/10/22 06:10 Sanborn # (Auto) 0.6 x10E3/uL (0.0-0.8) 10/10/22 06:10 [...] by cardiology today. I have consulted [facility] heart. He was offered nicotine patch. [...] <Electronically signed by Galo Dent MD> 10/10/22727 [facility] Work Phone: 1([phone]) 281-842502-15-2023 Evaluation note* Encounter Date Diagnosis Assessment Notes [...] in office today. Prior medical notes from [facility] and history have been reviewed. At this [...] any surgical interventions. Tobacco cessation program at [facility] has been recommended and offered as well as the national Quitline 9-236-HOCZ-NOW. We have discussed pharmacologic treatment including nicotine replacement therapy which can lead to a positive nicotine test as well as nicotine free medications both of which will need to be managed by their PCP. We have provided handout for the [facility] Tobacco Cessation Program. This discussion was limited to 5 minutes. Aug, Other See orders for this visit as documented in the electronic medical record. [facility] Other 01-19-2023 Evaluation note* Encounter Date Diagnosis [...] agrees to treatment plan. [facility] Other 01-05-2023 Evaluation note* Encounter Date Diagnosis Assessment Notes Treatment Notes Treatment Clinical Notes Jul, Chronic obstructive pulmonary disease with acute exacerbation (ICD-10 - J44.1) [facility] Other Discharge summary Author Barbara Rivero [facility] October 13, 2022 2:14pm Note Date/Time October 13, 2022 2:0 9pm [facility] [address] [place] [address] Discharge Summary Signed Patient: Hector Gaspar SR MR#: [id number] : 1960 Acct:[id number] Age/Sex: 62 / M Adm Date: 3 Loc: Room: [address] [place] [address]: Barbara Rivero MD Copies to: [...] transferred from outside facility for non-ST elevated WA. He was started on heparin drip as [...] doctor or pharmacist, without first calling the securities counselor who implanted the stent. If you require [...] weight lifting, stair steppers, etc. until the securities counselor approves these activities. Check with the securities counselor on your first follow-up visit. CALL YOUR PHYSICIAN at [phone]: -If bleeding should occur from the catheter insertion site- apply pressure to the site then immediately call us. -Report any fever, redness, drainage, increased swelling, or firmness at the catheter insertion site. Some bruising or slight swelling may be present at thetime of discharge. -Should arm or leg become cold, numb, white, or blue, contact the securities counselor immediately. -IF you should experience episodes of [...] is recommended. Please call Central Scheduling at [phone] to schedule your appointment.] The attending securities counselor or [facility] nurse clinician should provide you with specific instructions regarding activity, diet, medications, and further follow up for you. Follow the medication instructions provided on your discharge. If the dosages and instructions on this sheet differ from the dosage and instructions on the bottle, follow the instructions on the bottle. 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 procedure (Routine) Timeframe: 1 Week Location: Determined by Patient Ordered By: Barbara Rivero Follow Up: [facility] Sleep [facility] [Outside] (Left message with [facility] regarding need for outpatient [...] signed by Barbara Rivero MD> 10/13/22 1414 [facility] Work Phone: Evaluation noteNo assessment information available [facility] Work Phone: Evaluation noteNo InformationNort Botan[employer] Other Evalubrpcx note* Diagnosis Onset Date Resolution Status COPD (chronic obstructive pulmonary disease) acute Heart block AV complete acut e Hypertension acute Hypoxemia acute NSTEMI (non-ST elevated myocardial infarction) acute Sleep apnea in adult acute Tobacco abuse acute Ventricular tachycardia seen on alarm security or surveillance monitor acute [facility] Work Phone: Evaluation note* Diagnosis Abdominal [...] [facility] SystemEvaluation note* Diagnosis Atherosclerosis of [place] coronary artery of [place] heart without angina pectoris Essential hypertension, benign Mixed hyperlipidemia Ischemic cardiomyopathy Other specified forms of chronic ischemic heart disease Past myocardial infarction Old myocardial infarction Moderate chronic obstructive pulmonary disease (CMS/HCC) Chronic airway obstruction, not elsewhere classified Obesity (BMI 35.0-39.9 without comorbidity) Current smoker documented in this encounter [facility] Work Phone: Evaluation note* Diagnosis Onset Date Resolution Status COPD (chronic obstructive pulmonary disease) acute Situational anxiety acute [facility] Work Phone: Evaluation note* Diagnosis Onset Date Resolution Status COPD (chronic obstructive pulmonary disease) acute Situational anxiety acute Hypertension acute Coronary artery disease invo lving [place] heart without angina pectoris acute Hypertension acute Situational anxiety acute [facility] Work Phone: Evaluation note* Diagnosis Onset Date Resolution Status Hypertension acute Coronary artery disease invo lving [place] heart without angina pectoris acute Hypertension acute Situational anxiety acute Right knee pain acute Right leg pain acute [facility] Work Phone: Evaluation note* Diagnosis Onset Date Resolution Status Right knee pain acute Right leg pain acute [facility] Work Phone: History general Narrative - [...] History appendectomy 05/02/18 Hospitalization History SEE SURGICAL [facility] Other Hisas[facility] general Narrative - Reported* Type Description Date [...] 3 Stents 09/2022 Hospitalization History SEE SURGICAL [facility] Other Hisqjxt general Narrative - Reported* Type Description Date [...] 3 Stents 09/2022 Hospitalization History SEE SURGICAL [facility] Other History general Narrative - Reported* Type [...] History SEE SURGICAL HX Hospitalization History pneumonia [facility] Other InstructionsNot on filedocumented in this encounter [facility] SystemInstructionsNot on filedocumented in this encounter [facility] SystemInstructionsNot on filedocumented in this encounter [facility] ScoreGrid SystemReason for referral (narrative)* Consultation (Routine) - Authorized Specialty Diagnoses / Procedures Referred By Contac t Referred To Contact Cardiology Diagnoses Atherosclerosis of [place] coronary artery of [place] heart without angina pectoris Procedures Follow Up In Cardiology Alok Armijo DO [address] [facility] [address], [place] [id number] Alok Armijo DO [address] [facility] [address], [place] [id number] Referral ID Status Reason Start Date Expiration Date V isits Requested Visits Authorized [id number] Authorized 09/14/2023 09/13/2024 1 1 [facility] Work Phone: Chief Complaint and Reason for Visit Chief Complaint M25.561 Elevated Troponin Reason for Visit COPD (chronic obstru ctive pulmonary disease) Heart block AV complete Hypertension Hypoxemia NSTEMI (non-ST elevated myocardial infarction) Sleep apnea in adult Tobacco abuse Ventricular tachycardia seen on alarm security or surveillance monitor Chief Complaint M25.561 Elevated Troponin I25.10 I10 E78.2 Reason for Visit COPD (chronic obstru ctive pulmonary disease) Heart block AV complete Hypertension Hypoxemia NSTEMI (non-ST elevated myocardial infarction) Sleep apnea in adult Tobacco abuse Ventricular tachycardia seen on alarm security or surveillance monitor Chief Complaint M25.561 Elevated Troponin I25.10 I10 E78.2 j98.11 Reason for Visit COPD (chronic obstru ctive pulmonary disease) Heart block AV complete Hypertension Hypoxemia NSTEMI (non-ST elevated myocardial infarction) Sleep apnea in adult Tobacco abuse Ventricular tachycardia seen on alarm security or surveillance monitor Chief Complaint Tbh Amb Documentation Breathing Issues Dizziness Reason for Visit COPD (chronic obstru ctive pulmonary disease) Situational anxiety Chief Complaint Amb Documentation Breathing Issues Dizziness 1 month follow up pain in right calf Reason for Visit COPD (chronic obstru ctive pulmonary disease) Situational anxiety Hypertension Coronary artery disease involving [place]ap[place]-apache heart without angina pectoris Hypertension Situational anxiety Chief Complaint Dizziness 1 month follow up pain in right calf right leg swollen and painful Reason for Visit Hypertension Coronary artery disease involving [place] heart without angina pectoris Hypertension Situational anxiety [...] December. 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 [place] * He tells me that he has had right lower lobe mass since 2012 that has been followed reportedly at [facility] details of which are unknown * Pulmonary [...] aortic aneurysm (AAA) without rupture, unspecified part ([facility]) Obstructive chronic bronchitis with exacerbation ([facility]) Obesity with body mass index (BMI) of 30.0 to 39.9 Chronic obstructive pulmonary disease, unspecified COPD type ([facility]) Procedures CT angiogram abdomen and pelvis Christopher Sewell MD [address], [address] [address] Referral ID Status Reason Start Date Expiration Date V isits Requested Visits Authorized [id number] Pending Review 08/22/2023 08/21/2024 1 1 Reason *FU 07/28 5cm AAA - report scanned. Diagnosis 1 Abdominal aortic ane urysm (AAA) without rupture, unspecified part (I71.40) Referral Organization [facility] Augustin barber Referring Provider First Name Brock Referring Provider Last Name Ly Referring Provider Specialty Family [facility] Referred Organization [facility] Referred Provider Christopher Sewell Referred Address [address], [place],[address] Referred Provider Specialty Vascular Mir michelle Referral Priority Routine General Notes Helen Mendez 09:16:43 AM >received today, attachments made, ntoes locked, referral faxed Clinical Notes p: [phone] f: [id number] Additional Source Comments Care Teams (unrecognized sec [...] End: December 13, 2023 Brenda Jolley APRN CAREER GUIDANCE COUNSELOR-C Attending Provider Act carol Start: December 13, [...] Active Adi Campos MD Attending Provider Active Nurse Orthopaedic Relationship Specialty Start Date End Date Brock Modi MD [address] [place] [address] PCP - General Family Medicine 09/03/21 Nurse Orthopaedic Relationship Specialty Start Date End Date Brock Modi MD [address] [place] [address] PCP - General Family Medicine 09/03/21 Nurse Orthopaedic Relationship Specialty Start Date End Date Brock Mdoi MD [address] [place] [address] PCP - General Family Medicine 09/03/21 Nurse Orthopaedic Relationship Specialty Start Date End Date Brock [...] aortic aneurysm (AAA) without rupture, unspecified part ([facility]) Christopher Sewell MD [address] , [address] [address] Christopher Sewell MD [address] [place] [id number] Referral ID Status Reason Start Date Expiration Date Visits Requested Visits Authorized [id number] Pending Review Specialty Services Required 3 07/21/2024 1 1 US resultTBHsleep apnea discussionrefillAlprazolamRecheck Right Knee* Reason for Visit: * Holter Monitor: * HECTOR is here for the application of a 48 hour Holter monitor. * Ordering Physician: JANINE CUNHA * Diagnosis: CAD SINUS PAUSE * [facility] equipment agreement signed. HECTOR understands monitor is to be returned on: 11-03-22 * Monitor number [id number] applied. * Holter monitor returned and downloaded. messagePulmonary Office NotesRef by Dr. Brock Modi for COPDJ[facility] - HAD HEART ATTACKRight Knee [...] DATE CREATED AUTHOR AUTHOR'S ORGANIZ ATION 04/09/2023 [facility] DATE CREATED AUTHOR AUTHOR'S ORGANIZ ATION 08/08/2023 [facility] DATE CREATED AUTHOR AUTHOR'S ORGANIZ ATION 11/12/2023 [facility] DATE CREATED AUTHOR AUTHOR'S ORGANIZ ATION 03/09/2024 [facility] DATE CREATED AUTHOR AUTHOR'S ORGANIZ ATION 06/12/2024 [facility] FOR RECORDS PERTAINING TO PATIENTS [...] BE BASED ON THE PRIMARY CLINICAL RECORDS. [facility]. provides no warranty or guarantee of the accuracy or completeness of information in this document.
--- NOTE | 2024-08-10 19:24 | PC.NURSE ---
i walked into this patient's room to find patient awake and alert looking at his cell phone this patient complains of diarrhea about 4 hours after eating at [employer] today
--- NOTE | 2024-08-10 19:37 | XR_ITS ---
The [address] [address] Patient Name: HECTOR HIGHTOWER MRN: [id number] date: 1960 Sex: M Assigned Patient Location: ER Current Patient Location: ED.MAIN Accession/Order Number: [id number] Exam Date: 08/10/2024 20:06 Report Date: 08/10/2024 20:34 At the request of: SHERRY MCCOY Procedure: XR chest 1V EXAMINATION: XR chest 1V HISTORY: Shortness of breath COMPARISON: XR chest 05/07/2024 FINDINGS: LUNGS: Mild opacity within lateral left lung base obscuring the heart and diaphragm margin. Trace amount of stranding. VASCULATURE: No increased pulmonary vasculature. PLEURA: No pneumothorax, effusion, or pleural thickening. CARDIAC: No cardiomegaly or cardiac silhouette abnormality. MEDIASTINUM: No visible mass or adenopathy. BONES: No fracture or visible bone lesion. OTHER: Negative. XR/XR chest 1V IMPRESSION: 1. Mild lingular infiltrates; new since prior study. Electronically authenticated by: JEFF DANIELLE Date: 08/10/2024 20:34
--- NOTE | 2024-08-10 19:37 | ECG_ITS ---
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
--- NOTE | 2024-08-10 19:39 | ED_ITS ---
HPI HPI - General Adult General Chief complaint: Nausea/Vomiting/Diarrhea Stated complaint: DIARRHEA, NAUSEA, WEAKNESS Time Seen by Provider: 08/10/24 19:09 Source: patient Mode of arrival: walk-in Limitations: no limitations History of Present Illness HPI narrative: Patient is a 64-year-old male who presents to the emergency department for evaluation of flulike illness for the past 2 days. Patient states he has not felt well for the last several days, he has had headache, cough and shortness of breath in addition to an upset stomach and diarrhea. He states he came to the emergency department to make sure everything is all right . He does have a history of previous NC, aortic aneurysm, COPD. He is a heavy cigarette smoker. He has been seen in this emergency department multiple times in the past for COPD exacerbations, diarrhea and seems to be anxious on presentation in the past. He has no complaints of chest pain, abdominal pain, vomiting. He has not had any objective fevers, leg swelling. Related Data Home Medications ?Medication ?Instructions ?Recorded ?Confirmed aspirin 81 mg chewable tablet 1 tab PO DAILY 01/24/23 08/10/24 atorvastatin 80 mg tablet 80 mg PO QPM 01/24/23 08/10/24 valsartan 160 mg tablet 160 mg PO DAILY 09/01/23 08/10/24 clopidogrel 75 mg tablet (Plavix) 75 mg PO DAILY 10/09/23 08/10/24 Previous Rx's ?Medication ?Instructions ?Recorded albuterol sulfate 90 mcg/actuation 2 inh inhalation Q4H PRN shortness 08/10/24 aerosol inhaler of breath or wheezing #8.5 grams doxycycline hyclate 100 mg tablet 100 mg PO BID 7 days #14 tabs 08/10/24 prednisone 20 mg tablet 60 mg (3 x 20 mg) PO DAILY 3 days 08/10/24 #9 tabs Allergies Allergy/AdvReac Type Severity Reaction Status Date / Time Penicillins Allergy Severe Hives Verified 08/10/24 19:13 pneumonia shot AdvReac Intermediate Unknown Uncoded 08/10/24 19:13 Opioid HPI Opioid Management Most Recent Opioid Data: No Data to Display Review of Systems ROS Constitutional Denies: fever or chills Ears, nose, mouth, and throat Denies: throat pain or nasal congestion Cardiovascular Denies: chest pain Respiratory Reports: shortness of breath and cough Gastrointestinal Reports: diarrhea; Denies: abdominal pain, nausea, vomiting or blood in stool Musculoskeletal Denies: back pain Integumentary/Breast Denies: rash Neurological Reports: headache; Denies: numbness in extremities or weakness in extremities Hematologic/Lymphatic Denies: easy bruising or easy bleeding PFSH [facility] Medical History (Updated 08/10/24 @ 20:34 by DUSTY Jane) Hypercholesterolemia ?E78.00 - Pure hypercholesterolemia, unspecified (ICD-10) COPD (chronic obstructive pulmonary disease) ?J44.9 - Chronic obstructive pulmonary disease, unspecified (ICD-10) Social History Smoking status: Current every day smoker Little interest or pleasure in doing things: not at all Feeling down, depressed, or hopeless: not at all Exam Narrative Exam Narrative: Gen.: Awake, alert, in no distress Head: Normocephalic, atraumatic ENT: Moist mucous membranes Respiratory: No respiratory distress, diminished lung sounds globally, able to speak in full sentences Cardio: Regular rate and rhythm Gastrointestinal: Abdomen is soft, nondistended and nontender to palpation Extremities: Moves extremities equally, no pedal edema Psych: Normal mood and affect Neuro: No focal neuro deficit Skin: Warm, dry, intact Constitutional Vital Signs, click to edit/add: Last Vital Signs Temp 97.5 F L 08/10/24 19:11 Pulse 77 08/10/24 19:45 Resp 17 08/10/24 19:45 BP 147/105 H 08/10/24 19:45 Pulse Ox 95 08/10/24 19:45 O2 Del Method Room Air 08/10/24 19:11 Course Vital Signs Vital signs: Vital Signs Temperature 97.5 F L 08/10/24 19:11 Pulse Rate 85 08/10/24 19:11 Respiratory Rate 18 08/10/24 19:11 Blood Pressure 169/93 H 08/10/24 19:11 Pulse Oximetry 97 08/10/24 19:11 Oxygen Delivery Method Room Air 08/10/24 19:11 Temperature 97.5 F L 08/10/24 19:11 Pulse Rate 77 08/10/24 19:45 Respiratory Rate 17 08/10/24 19:45 Blood Pressure 147/105 H 08/10/24 19:45 Pulse Oximetry 95 08/10/24 19:45 Oxygen Delivery Method Room Air 08/10/24 19:11 Medical Decision Making MDM Narrative Medical decision making narrative: EKG is unremarkable, labs are stable and chest x-ray was reviewed by the radiologist showing mild lingular infiltrate. Patient is tolerating fluids in the ER, encouraged to continue to push fluids for home. He is placed on an albuterol inhaler and a short course of steroids with doxycycline based on chest x-ray findings. He is hemodynamically stable with normal oxygenation. Follow- up with PCP and return to the ER if symptoms change or worsen SUPERVISED APC VISIT, PHYSICIAN ATTESTATION: Based on the medical record the care appears appropriate. ? Medical Records Medical records reviewed: Yes I reviewed the patient's medical records Lab Data Lab results reviewed: Yes I reviewed the patient's lab results Labs: Lab Results 08/10/24 08/10/24 Range/Units 19:39 19:40 WBC 5.6 (4.0-11.0) 10^3/uL RBC 4.40 L (4.70-6.10) 10^6/uL Hgb 13.4 L (14.0-18.0) g/dL Hct 39.4 L (42.0-54.0) % MCV 89.5 (80.0-94.0) fL MCH 30.5 (25.9-34.0) pg MCHC 34.0 (29.9-35.2) g/dL RDW 12.5 (11.0-15.0) % Plt Count 196 (150-450) 10^3/uL MPV 9.4 L (9.5-13.5) fL Neut % (Auto) 52.3 (43.0-75.0) % Lymph % (Auto) 31.5 (20.5-60.0) % [place] % (Auto) 11.5 (1.7-12.0) % Eos % (Auto) 3.8 (0.9-7.0) % Baso % (Auto) 0.5 (0.2-2.0) % Neut # (Auto) 2.9 (1.4-6.5) 10^3/uL Lymph # (Auto) 1.8 (1.2-3.8) 10^3/uL [place] # (Auto) 0.6 (0.3-0.8) 10^3/uL Eos # (Auto) 0.2 (0.0-0.7) 10^3/uL Baso # (Auto) 0.0 (0.0-0.1) 10^3/uL Abs Immat Gran (auto) 0.02 (0.00-0.03) 10^3/uL Imm/Tot Granulo (auto) 0.4 (0.0-0.5) % PT 10.1 (9.0-11.6) sec INR 0.95 Sodium 141 (136-145) mmol/L Potassium 4.2 (3.5-5.1) mmol/L Chloride 104 (98-107) mmol/L Carbon Dioxide 28.8 (21.0-32.0) mmol/L Anion Gap 12.4 BUN 21.0 H (7.0-18.0) mg/dL Creatinine 1.33 H (0.70-1.30) mg/dL Est GFR ( Amer) >60 (>=60 mL/min/1.73m^2) Est GFR (Non-Af Amer) 54 L (>=60 mL/min/1.73m^2) BUN/Creatinine Ratio 15.8 Glucose 102 (74-106) mg/dL Lactate 0.7 (0.4-2.0) mmol/L Calcium 8.6 (8.5-10.1) mg/dL Total Bilirubin 0.4 (0.2-1.0) mg/dL AST 19 (15-37) U/L ALT 35 (16-63) U/L Alkaline Phosphatase 80 (46-116) U/L Troponin I High Sens 11.9 (4.0-76.1) pg/mL NT-Pro-B Natriuret Pep 95.0 (<=900.0) pg/mL Total Protein 6.9 (6.4-8.2) g/dL Albumin 3.3 L (3.4-5.0) g/dL Globulin 3.6 g/dL Albumin/Globulin Ratio 0.9 Influenza Type A Ag Negative Influenza Type B Ag Negative SARS-CoV-2 Ag (CV2AG) Negative (NEGATIVE) Imaging Data Chest x-ray: Attestation: I have reviewed the pertinent imaging results. Radiologist's impression: ITS Impressions Chest X-Ray 08/10/24 19:37 IMPRESSION: 1. Mild lingular infiltrates; new since prior study. Electronically authenticated by: JEFF DANIELLE Date: 08/10/2024 20:34 ECG Data Attestation: I personally reviewed and interpreted this ECG as follows: (Normal sinus rhythm with frequent PVCs at a rate of 76, no acute ST elevation. EKG reviewed by attending physician) Discharge Plan Discharge Chief Complaint: Nausea/Vomiting/Diarrhea Clinical Impression: Upper respiratory infection, Diarrhea, COPD (chronic obstructive pulmonary disease) Patient Disposition: Home, Self-Care Time of Disposition Decision: 20:34 Condition: Good Prescriptions / Home Meds: New prednisone 20 mg tablet 60 mg PO DAILY 3 Days Qty: 9 0RF albuterol sulfate 90 mcg/actuation HFA aerosol inhaler 2 inh inhalation Q4H PRN (Reason: shortness of breath or wheezing) Qty: 8.5 0RF doxycycline hyclate 100 mg tablet 100 mg PO BID 7 Days Qty: 14 0RF No Action aspirin 81 mg tablet,chewable 1 tab PO DAILY atorvastatin 80 mg tablet 80 mg PO QPM valsartan 160 mg tablet 160 mg PO DAILY Rx Instructions: HS clopidogrel [Plavix] 75 mg tablet 75 mg PO DAILY Print Language: Ivorian Instructions: Upper Respiratory Infection (ED), COPD (Chronic Obstructive Pulmonary Disease) (ED), Acute Diarrhea (ED) Referrals: Sukumar Davison MD [Primary Care Provider] - 1 week
[2024-08-10 19:45] VITALS: BP 147/105; PULSE 77; O2SAT 95
[2024-08-10] MEDS: 0.9 % SODIUM CHLORIDE 1,000 ML 999 ML IV (19:56)
[2024-08-10] MEDS: METHYLPREDNISOLONE SOD SUCC PF 125 MG/2 ML VIAL IVP (19:56)
[2024-08-10 19:57] VITALS: PULSE 76; O2SAT 97
[2024-08-10] MEDS: ALBUTEROL SULFATE 2.5 MG/3 ML VIAL NEB IH (19:57)
[2024-08-10 20:06] LABS: Basophils Percent Auto 0.5 % (0.2-2.0); Eosinophils Absolute Auto 0.2 10^3/uL (0.0-0.7); Eosinophils Percent Auto 3.8 % (0.9-7.0); Hematocrit 39.4 % (42.0-54.0); Hemoglobin 13.4 g/dL (14.0-18.0); Immature Granulocytes Abs Auto 0.02 10^3/uL (0.00-0.03); Immature Granulocytes Pct Auto 0.4 % (0.0-0.5); Lymphocytes Absolute Auto 1.8 10^3/uL (1.2-3.8); Lymphocytes Percent Auto 31.5 % (20.5-60.0); Mean Corpuscular Hemoglobin 30.5 pg (25.9-34.0); Mean Corpuscular Volume 89.5 fL (80.0-94.0); Mean Platelet Volume 9.4 fL (9.5-13.5); Monocytes Absolute Auto 0.6 10^3/uL (0.3-0.8); Monocytes Percent Auto 11.5 % (1.7-12.0); Neutrophils Absolute Auto 2.9 10^3/uL (1.4-6.5); Neutrophils Percent Auto 52.3 % (43.0-75.0); Platelet Count 196 10^3/uL (150-450); Red Cell Distribution Width 12.5 % (11.0-15.0); White Blood Count 5.6 10^3/uL (4.0-11.0)
[2024-08-10 20:14] LABS: INR 0.95; Prothrombin Time 10.1 sec (9.0-11.6)
[2024-08-10 20:21] LABS: Influenza Virus A Antigen Negative; Influenza Virus B Antigen Negative; Internal Control Within Normal Limits; SARS-CoV-2 Ag NEGATIVE (NEGATIVE)
[2024-08-10 20:21] LABS: Lactate/Lactic Acid 0.7 mmol/L (0.4-2.0)
[2024-08-10 20:27] LABS: Alanine Aminotransferase 35 U/L (16-63); Albumin Globulin Ratio 0.9; Albumin Level 3.3 g/dL (3.4-5.0); Alkaline Phosphatase 80 U/L (46-116); Anion Gap 12.4; Aspartate Amino Transferase 19 U/L (15-37); BUN Creatinine Ratio 15.8; Bilirubin Total 0.4 mg/dL (0.2-1.0); Calcium 8.6 mg/dL (8.5-10.1); Carbon Dioxide 28.8 mmol/L (21.0-32.0); Chloride 104 mmol/L (98-107); Estimated GFR (African America >60 (>=60 mL/min/1.73m^2); Estimated GFR (Non-African Ame 54 (>=60 mL/min/1.73m^2); Globulin 3.6 g/dL; Glucose 102 mg/dL (74-106); Potassium 4.2 mmol/L (3.5-5.1); Sodium 141 mmol/L (136-145); Total Protein 6.9 g/dL (6.4-8.2); Troponin I High Sensitivity 11.9 pg/mL (4.0-76.1)
[2024-08-10 20:54] VITALS: BP 135/75; PULSE 75; TEMP 36.6; O2SAT 96
[2024-08-10] MEDS: DOXYCYCLINE MONOHYDRATE 100 MG CAPSULE PO (20:56)
--- NOTE | 2024-08-10 21:03 | PC.NURSE ---
i gave this patient verbal and written discharge orders along with 3 e-scripts and this patient voices yes to understanding these. at time of discharge this patient voices no concerns and shows no signs of distress
== END 2024-08-10 21:04 | disposition home or self-care (01) ==
PROVIDERS: Physician Assistant; Emergency Provider Student in an Organized Health Care Education/Training Program; PCP Family Medicine
DX: J06.9 Acute upper respiratory infection, unspecified (principal); R19.7 Diarrhea, unspecified; J44.9 Chronic obstructive pulmonary disease, unspecified; I25.2 Old myocardial infarction; F17.210 Nicotine dependence, cigarettes, uncomplicated; R06.02 Shortness of breath
CPT/HCPCS: 36415; 71045; 80053; 83605; 83880; 84484; 85025; 85610; 87804; 87811; 93005; 94640; 96361; 96374; 99285; J2919

== ENCOUNTER 2024-08-11 15:04 | Outpatient (OUT) | payer OTHER, SELFPAY ==
--- NOTE | 2024-08-11 15:08 | CT_ITS ---
[address] [address] Patient Name: HECTOR HIGHTOWER MRN: [id number] date: 1960 Sex: M Assigned Patient Location: CT Current Patient Location: Accession/Order Number: [id number] Exam Date: 08/11/2024 15:18 Report Date: 08/15/2024 08:25 At the request of: SEYMOUR HARPER Procedure: CT lung screening low-dose EXAMINATION: CT lung screening low-dose HISTORY: Lung Mass COMPARISON: CT chest 03/30/2019, chest x-ray 08/10/2024 TECHNIQUE: Axial, Coronal, and Sagittal images were created without the administration of IV contrast material. Dose reduction techniques were achieved by using automated exposure control and/or adjustment of mA and/or kV according to patient size and/or use of iterative reconstruction technique. FINDINGS: LUNGS: Partial consolidation of the right lower lobe superior segments which appears to be due to central bronchial obstruction; possible 1.8 cm mass within versus compressing the right lower lobe bronchus. PLEURA: No mass, effusion, or pneumothorax. VASCULATURE: No abnormality. MEG: Right hilar adenopathy. MEDIASTINUM: Mild adenopathy. CARDIAC: No enlargement, pericardial thickening, or pericardial effusion. Coronary Artery calcifications: Coronary calcifications are moderate. AORTA: No aneurysm or dissection. CHEST WALL: No mass or axillary adenopathy BONES: No bone lesion or fracture. LIMITED ABDOMEN: No suspicious findings. Limited images of the upper abdomen. OTHER: Negative. CT/CT lung screening low-dose IMPRESSION: 1. Collapse of the right lower lobe superior segment which appears to be due to obstruction of the segmental bronchus. There is marked narrowing, nearly complete occlusion of the right lower lobe main bronchus which appears to be due to an intraluminal mass versus external mass compressing the bronchus. Bronchoscopy should be considered for direct visualization and tissue sampling. Electronically authenticated by: JEFF DANIELLE Date: 08/15/2024 08:25
== END 2024-08-11 15:05 | disposition home or self-care (01) ==
LOC: CT 15:04
PROVIDERS: PCP Family Medicine; Visit Provider Family Medicine
DX: R91.8 Other nonspecific abnormal finding of lung field (principal); J98.19 Other pulmonary collapse
CPT/HCPCS: 71271

== ENCOUNTER 2024-09-03 22:08 | Emergency (ER) | payer OTHER, SELFPAY ==
[2024-09-03] VITALS (17 sets, daily range): BP systolic 104–139; BP diastolic 76–89; PULSE 82–95; TEMP 36.6; O2SAT 92–98; BMI 39.7
--- OUTSIDE RECORDS SUMMARY | 2024-09-03 22:14 | XMS_ITS | CCD ---
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 Role Phone DO Wagner Marrufo Attending Provider Brock Modi Unavailable Wagner Marrufo Unavailable DO Wagner Marrufo Attending Provider [phone] MD Brock Modi Primary Care Provider [phone] MD Galo Dent Admit Provider MD Barbara Rivero Attending Provider Brock Modi Unavailable Unavailable Unavailable Adi Campos Unavailable ZELALEM Faustin Attending Provider [phone] MD Adi Campos Attending Provider KULDEEP, DR [...] ARLIN Simpson Admitting Unavailable MODI, DR BROCK Urbnao Primary Care Unavailable AHDOLUIS, CYNTHIA Consulting Unavailable [...] Unavailable Brock Modi MD Primary Care Provider [phone] Brock Modi MD Primary Care Provider ALOK [...] & Blurred vision, Comment:nausea and blurred vision [facility] (20 sources) Substance with penicillin structure and antibacterial mechanism of action (substance) Drug allergy Edema, Unknown [facility] Other (20 sources) Pneumococcal 7-Zulma Conj Vacc Drug allergy undefined, Comment:pneumo nococcal 23 [facility] Other (20 sources) Penicillins; Translations: [Penicillins] Propensity to adverse reactions 05-29-20 13 Swelling, [facility] (16 sources) Pneumococcal vaccine; Translations: [PNEUMOCOCCAL VACCINE] Drug Allergy 08-08-19 22 Nausea And Vomiting, Other [facility] (8 sources) Pneumococcal vaccine; Translations: [Pneumococcal Vaccines] Drug Allergy [facility] 250 DO Work Phone: (2 sources) Penicillin Drug Allergy 07-29-19 16 Unknown [facility] Other (2 sources) patient allergy list reviewed by nurse or physicia Propensity to adverse reactions 07-29-19 16 Comment:Done [facility] Other (2 sources) Allergies Reconciled Propensity to adverse reactions Unknown [facility] Other (5 sources) Ciprofloxacin; Translations: [CIPROFLOXACIN HCL] Drug Allergy 08-08-19 22 [facility] (5 sources) pneumococcal 7-valent conjugate to Allergy to substance 10-26-19 24 Comment:pneumo nococcal 23 [facility] Medications Current Medications Medication Drug Class(es) [...] mg tablet Indications: Atherosclerotic heart disease of [place] coronary artery without angina pectoris TAKE 1 [...] Start: 11-12-2022 take 2 tablets by mo [facility] every twenty-four hours predniSONE 20 [...] mg capsule Take by mouth. 0 Active [id number] 200 actuat albuterol 0.09 mg/actuat metered dose [...] ventricular tachycardia; Translations: [Ventricular tachycardia seen on media monitor] 10-11-2022 Chronic Chronic obstructive pulmonary disease [...] Coronary arteriosclerosis; Translations: [Atherosclerotic heart disease of [place] coronary artery without angina pectoris] Onset: 08-06-2023 [...] 03-16-2019 Chronic Other aftercare (1 source) Other snf (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; Translations: [OTH CUSTODIAL CURRENT DRUG THERAPY] Onset: 10-13-2022 Episodic Other [...] Basophils (Bld) [#/Vol] 0.0 10 3/uL 0.0-0.1 [facility] Basophils/100 WBC Auto (Bld) on 05-07-2024 Basophils/100 WBC (Bld) 0.6 % 0.2-2.0 [facility] Eosinophils/100 WBC Auto (Bl d)on 05-07-2024 Eosinophils/100 WBC (Bld) 3.8 % 0.9-7.0 [facility] Erythrocyte distribution wid th Auto (RBC) [Ratio]on 05-07-2024 Erythrocyte distribution width (RBC) [Ratio] 12.4 % 11.0-15.0 [facility] Estimated glomerular filtrat ion rate (GFR) non- Americanon 05-07-2024 GFR/1.73 sq M.predicted among non-blacks MDRD (S/P/Bld) [Vol rate/Area] 52 mL/min/{1.73_m2} Low >=60 mL/min/1.7 3m 2 [facility] Globulin Calc (S) [Mass/Vol] on 05-07-2024 Globulin (S) [Mass/Vol] 3.7 g/dL [facility] Hematocrit Auto (Bld) [Volum e fraction]on 05-07-2024 Hematocrit (Bld) [Volume fraction] 39.8 % Low 42.0-54.0 [facility] Hemoglobin [Mass/volume] in Bloodon 05-07-2024 Hemoglobin (Bld) [Mass/Vol] 13.8 g/dL Low 14.0-18.0 [facility] INR in Platelet poor plasma by Coagulation assayon 05-07-2024 INR Coag (PPP) [Relative time] 0.96 {INR} [facility] Comment on above: DESIRED INR:2.0-3.0 CONDITIONS NOT LISTED BELOW2.5-3.5 FOR PROSTHETIC HEART VALVE REPLACEMENT2.5-3.5 RECURRENT THROMBOSIS Laboratory - Chemistry and C hemistry - challengeon 05-07-2024 Albumin [Mass/Vol] 3.7 g/dL 3.4-5.0 [facility] ALP [Catalytic activity/Vol] 67 U/L 46-116 [facility] ALT [Catalytic activity/Vol] 26 U/L 16-63 [facility] AST [Catalytic activity/Vol] 19 U/L 15-37 [facility] Bilirubin [Mass/Vol] 0.4 mg/dL 0.2-1.0 [facility] Calcium [Mass/Vol] 9.3 mg/dL 8.5-10.1 [facility] Chloride [Moles/Vol] 104 mmol/L 98-107 [facility] CO2 [Moles/Vol] 27.0 mmol/L 21.0-32.0 [facility] Creatinine [Mass/Vol] 1.38 mg/dL High 0.70-1.30 [facility] GFR/1.73 sq M.predicted MDRD (S/P/Bld) [Vol rate/Area] mL/min/{1.73_m2} >=60 mL/min/1.7 3m 2 [facility] Glucose [Mass/Vol] 111 mg/dL High 74-106 [facility] Natriuretic peptide B (Bld) [Mass/Vol] 87.0 pg/mL <=900.0 [facility] Potassium [Moles/Vol] 4.1 mmol/L 3.5-5.1 [facility] Protein [Mass/Vol] 7.4 g/dL 6.4-8.2 [facility] Sodium [Moles/Vol] 141 mmol/L 136-145 [facility] Urea nitrogen [Mass/Vol] 18.0 mg/dL 7.0-18.0 [facility] Urea nitrogen/Creatinine [Mass ratio] 13.0 mg/mg [facility] Laboratory - Hematology and Cell countson 05-07-2024 Immature granulocytes/100 WBC (Bld) 0.2 % 0.0-0.5 [facility] Leukocytes [#/volume] correc kal for nucleated erythrocytes in Blood by Automated counon 05-07-2024 WBC corrected for nucl RBC Auto (Bld) [#/Vol] 4.7 10 3/uL 4.0-11.0 [facility] Lymphocytes Auto (Bld) [#/Vo l]on 05-07-2024 Lymphocytes (Bld) [#/Vol] 1.6 10 3/uL 1.2-3.8 [facility] Lymphocytes/100 WBC Auto (Bl d)on 05-07-2024 Lymphocytes/100 WBC (Bld) 34.4 % 20.5-60.0 [facility] MCH Auto (RBC) [Entitic mass ]on 05-07-2024 MCH (RBC) [Entitic mass] 30.9 pg 25.9-34.0 [facility] MCHC Auto (RBC) [Mass/Vol]on 05-07-2024 MCHC (RBC) [Mass/Vol] 34.7 g/dL 29.9-35.2 [facility] MCV Auto (RBC) [Entitic vol] on 05-07-2024 MCV (RBC) [Entitic vol] 89.2 fL 80.0-94.0 [facility] Monocytes Auto (Bld) [#/Vol] on 05-07-2024 Monocytes (Bld) [#/Vol] 0.6 10 3/uL 0.3-0.8 [facility] Monocytes/100 WBC Auto (Bld) on 05-07-2024 Monocytes/100 WBC (Bld) 12.4 % High 1.7-12.0 [facility] Neutrophils Auto (Bld) [#/Vo l]on 05-07-2024 Neutrophils (Bld) [#/Vol] 2.3 10 3/uL 1.4-6.5 [facility] Neutrophils/100 WBC Auto (Bl d)on 05-07-2024 Neutrophils/100 WBC (Bld) 48.6 % 43.0-75.0 [facility] No Panel Informationon 05-07 Eosinophils # (Auto) 0.2 10 3/uL 0.0-0.7 [facility] Immature Granulocyte # (Auto) 0.01 10 3/uL 0.00-0.03 [facility] Troponin I High Sensitivity 15.2 pg/mL 4.0-76.1 [facility] Comment on above: CUT-OFF POINTS HAVE [...] (Bld) [Entitic vol] 9.4 fL Low 9.5-13.5 [facility] Platelets Auto (Bld) [#/Vol] on 05-07-2024 Platelets (Bld) [#/Vol] 212 10 3/uL 150-450 [facility] Prothrombin time (PT)on 04-25 PT Coag (PPP) [Time] 10.2 s 9.0-11.6 [facility] RBC Auto (Bld) [#/Vol]on RBC (Bld) [#/Vol] 4.46 10 6/uL Low 4.70-6.10 [facility] Serum or plasma albumin/glob ulin mass ratioon 05-07-2024 Albumin/Globulin [Mass ratio] 1.0 {ratio} [facility] Serum or plasma anion gap de terminationon 05-07-2024 Anion gap [Moles/Vol] 14.1 mmol/L [facility] CT CTA ABD AND PELVISon 02-23 [...] Marie MD on 03/07/2024 12:12 PM Normal [facility] Basophils Auto (Bld) [#/Vol] on 10-09-2023 Basophils (Bld) [#/Vol] 0.0 10 3/uL 0.0-0.1 [facility] Basophils/100 WBC Auto (Bld) on 10-09-2023 Basophils/100 WBC (Bld) 0.6 % 0.2-2.0 [facility] Eosinophils/100 WBC Auto (Bl d)on 10-09-2023 Eosinophils/100 WBC (Bld) 3.9 % 0.9-7.0 [facility] Erythrocyte distribution wid th Auto (RBC) [Ratio]on 10-09-2023 Erythrocyte distribution width (RBC) [Ratio] 13.2 % 11.0-15.0 [facility] Estimated glomerular filtrat ion rate (GFR) non- Americanon 10-09-2023 GFR/1.73 sq M.predicted among non-blacks MDRD (S/P/Bld) [Vol rate/Area] 45 mL/min/{1.73_m2} >=60 [facility] Globulin Calc (S) [Mass/Vol] on 10-09-2023 Globulin (S) [Mass/Vol] 3.4 g/dL [facility] Hematocrit Auto (Bld) [Volum e fraction]on 10-09-2023 Hematocrit (Bld) [Volume fraction] 36.4 % 42.0-54.0 [facility] Hemoglobin [Mass/volume] in Bloodon 10-09-2023 Hemoglobin (Bld) [Mass/Vol] 12.1 g/dL 14.0-18.0 [facility] Laboratory - Chemistry and C hemistry - challengeon 10-09-2023 Albumin [Mass/Vol] 3.5 g/dL 3.4-5.0 [facility] ALP [Catalytic activity/Vol] 64 U/L 46-116 [facility] ALT [Catalytic activity/Vol] 35 U/L 16-63 [facility] AST [Catalytic activity/Vol] 24 U/L 15-37 [facility] Bilirubin [Mass/Vol] 0.4 mg/dL 0.2-1.0 [facility] Calcium [Mass/Vol] 9.0 mg/dL 8.5-10.1 [facility] Chloride [Moles/Vol] 102 mmol/L 98-107 [facility] CO2 [Moles/Vol] 27.8 mmol/L 21.0-32.0 [facility] Creatinine [Mass/Vol] 1.58 mg/dL 0.70-1.30 [facility] GFR/1.73 sq M.predicted MDRD (S/P/Bld) [Vol rate/Area] 54 mL/min/{1.73_m2} >=60 [facility] Glucose [Mass/Vol] 96 mg/dL 74-106 [facility] Potassium [Moles/Vol] 4.3 mmol/L 3.5-5.1 [facility] Protein [Mass/Vol] 6.9 g/dL 6.4-8.2 [facility] Sodium [Moles/Vol] 136 mmol/L 136-145 [facility] Urea nitrogen [Mass/Vol] 26.0 mg/dL 7.0-18.0 [facility] Urea nitrogen/Creatinine [Mass ratio] 16.5 mg/mg [facility] Laboratory - Hematology and Cell countson 10-09-2023 Immature granulocytes/100 WBC (Bld) 0.6 % 0.0-0.5 [facility] Leukocytes [#/volume] correc kal for nucleated erythrocytes in Blood by Automated counon 10-09-2023 WBC corrected for nucl RBC Auto (Bld) [#/Vol] 5.2 10 3/uL 4.0-11.0 [facility] Lymphocytes Auto (Bld) [#/Vo l]on 10-09-2023 Lymphocytes (Bld) [#/Vol] 1.5 10 3/uL 1.2-3.8 [facility] Lymphocytes/100 WBC Auto (Bl d)on 10-09-2023 Lymphocytes/100 WBC (Bld) 28.9 % 20.5-60.0 [facility] MCH Auto (RBC) [Entitic mass ]on 10-09-2023 MCH (RBC) [Entitic mass] 30.9 pg 25.9-34.0 [facility] MCHC Auto (RBC) [Mass/Vol]on 10-09-2023 MCHC (RBC) [Mass/Vol] 33.2 g/dL 29.9-35.2 [facility] MCV Auto (RBC) [Entitic vol] on 10-09-2023 MCV (RBC) [Entitic vol] 93.1 fL 80.0-94.0 [facility] Monocytes Auto (Bld) [#/Vol] on 10-09-2023 Monocytes (Bld) [#/Vol] 0.8 10 3/uL 0.3-0.8 [facility] Monocytes/100 WBC Auto (Bld) on 10-09-2023 Monocytes/100 WBC (Bld) 16.1 % 1.7-12.0 [facility] Neutrophils Auto (Bld) [#/Vo l]on 10-09-2023 Neutrophils (Bld) [#/Vol] 2.6 10 3/uL 1.4-6.5 [facility] Neutrophils/100 WBC Auto (Bl d)on 10-09-2023 Neutrophils/100 WBC (Bld) 49.9 % 43.0-75.0 [facility] No Panel Informationon 10-08 Eosinophils # (Auto) 0.2 10 3/uL 0.0-0.7 [facility] Immature Granulocyte # (Auto) 0.03 10 3/uL 0.00-0.03 [facility] Platelet mean volume Auto (B ld) [Entitic vol]on 10-09-2023 Platelet mean volume (Bld) [Entitic vol] 9.4 fL 9.5-13.5 [facility] Platelets Auto (Bld) [#/Vol] on 10-09-2023 Platelets (Bld) [#/Vol] 228 10 3/uL 150-450 [facility] RBC Auto (Bld) [#/Vol]on RBC (Bld) [#/Vol] 3.91 10 6/uL 4.70-6.10 [facility] Serum or plasma albumin/glob ulin mass ratioon 10-09-2023 Albumin/Globulin [Mass ratio] 1.0 {ratio} [facility] Serum or plasma anion gap de terminationon 10-09-2023 Anion gap [Moles/Vol] 10.5 mmol/L [facility] CT CTA ABD AND PELVISon 09-23 [...] Marie MD on 10/04/2023 3:36 PM Normal [facility] Office Visit (Cardiology)on 12-24-2022 Follow-up visit Diagnoses/Problems Assessed Coronary artery disease involving [place] coronary artery of [place] heart without angina pectoris (414.01) (I25.10) Preoperative [...] we can help. You may also call 0-439-[phone] for free resources and assistance.; Status:Complete - [...] 2012 that has been followed reportedly at [facility] details of which are unknown Pulmonary [...] MG Sublingu (more content not included)... Normal [facility] [employer] Tobacco Screening.on 023 Fall risk assessment c) Not medically indicated [facility] 250 DO Work Phone: Tobacco use status [facility] a) Yes [facility] 250 DO Work Phone: Tobacco Screening. Yes [facility] 250 DO Work Phone: Cardiovasc Arrhythmia Result son 11-02-2022 Cardiovasc Arrhythmia Results Reason For Visit Reason for Visit: Holter Monitor: HECTOR is here for the application of a 48 hour Holter monitor. Ordering Physician: JANINE CUNHA Diagnosis: CAD SINUS PAUSE [facility] equipment agreement signed. HECTOR understands monitor is to be returned on: 11-03-22 Monitor number [id number] applied. Holter monitor returned and downloaded. Procedure [...] symptomatic Diagnosis/Problems Assessed Coronary artery disease involving [place] coronary artery of [place] heart without angina pectoris (414.01) (I25.10) Sinus pause (426.6) (I45.5) Future Appointments Date/TimeProviderSpecialt ySite 01/19/2023 02:30 Alok Kirkland DOCardiology703 [facility] 2 Jonathan 250 DO Signatures Electronically signed by : Mallory Fan MA; Nov 02 2022 2:10PM EST (Author) Electronically signed by : Mohsen Gonsalves MD; Nov 08 2022 5:34PM EST (Author) Normal [facility] Calcium [Mass/volume] in Ser um or PlasmaOrdered By: Janine Cunha on 10-28-2022 Calcium [Mass/Vol] 9.5 mg/dL 8.6-10.3 [facility] Carbon dioxide, total [Moles /volume] in Serum or PlasmaOrdered By: Janine Cunha on 10-28-2022 CO2 [Moles/Vol] 25.8 mmol/L 21.0-31.0 [facility] Chloride [Moles/volume] in S lisa or PlasmaOrdered By: Janine Cunha on 10-28-2022 Chloride [Moles/Vol] 107 mmol/L 98-107 [facility] Creatinine [Mass/volume] in Serum or PlasmaOrdered By: Janine Cunha on 10-28-2022 Creatinine [Mass/Vol] 1.16 mg/dL 0.70-1.30 [facility] Glucose [Mass/volume] in Ser um or PlasmaOrdered By: Janine Cunha on 10-28-2022 Glucose [Mass/Vol] 100 mg/dL 70-100 [facility] Comment on above: ADA recommended refe rence rangeRandom Glucose Reference Range is dependent on time and content of last meal. Glucose of more than 200 mg/dL in a nonstressed, ambulatory subject supports the diagnosis of Diabetes Mellitus. No Panel InformationOrdered By: Janine Cunha on 10-28-2022 Estimated GFR (CKD-EPI) > 60.0 mL/Min [facility] Creatinine Clearance (Chem N/A [facility] No Panel Informationon 10-28 > 60.0 [facility] Work Phone: 11.6\S\11.6 Normal 6.0-15.0 [facility] 600 DO Work Phone: 9.5\S\9.5 Normal 8.6-10.3 [facility] 600 DO Work Phone: Comment on above: PERFORMED BY:[facility] [place], [place] [id number] MEDICAL DIRECTORJANETTE DE LA FUENTE M.D. 25.8\S\25.8 Normal 21.0-31.0 [facility] 600 DO Work Phone: 107\S\107 Normal 98-107 [facility] 600 DO Work Phone: 4.4\S\4.4 Normal 3.5-5.1 [facility] [place] 600 DO Work Phone: 140\S\140 Normal 136-145 [facility] 600 DO Work Phone: 1.16\S\1.16 Normal 0.70-1.30 [facility] [place] 600 DO Work Phone: 27\S\27 above high threshold 7-25 [facility] [place] 600 DO Work Phone: 100\S\100 Normal 70-100 [facility] 600 DO Work Phone: Comment on above: Random Glucose Refer ence Range is dependent on time and content of last meal. Glucose of more than 200 mg/dL in a nonstressed, ambulatory subject supports the diagnosis of Diabetes Mellitus. ADA recommended reference range Potassium [Moles/volume] in Serum or PlasmaOrdered By: Janine Cunha on 10-28-2022 Potassium [Moles/Vol] 4.4 mmol/L 3.5-5.1 [facility] Serum or plasma anion gap de terminationOrdered By: Janine Cunha on 10-28-2022 Anion gap [Moles/Vol] 11.6 mmol/L 6.0-15.0 [facility] Sodium [Moles/volume] in Ser um or PlasmaOrdered By: Janine Cunha on 10-28-2022 Sodium [Moles/Vol] 140 mmol/L 136-145 [facility] Urea nitrogen [Mass/volume] in Serum or PlasmaOrdered By: Janine Cunha on 10-28-2022 Urea nitrogen [Mass/Vol] 27 mg/dL 7-25 [facility] Tobacco Screening.on 023 Adult depression screening assessment No [facility] 250 DO Work Phone: Fall risk assessment a) No falls within the last year [facility] 250 DO Work Phone: Tobacco use status [facility] a) Yes [facility] [facility] 250 DO Work Phone: Tobacco Screening. Yes -[facility] [facility] 250 DO Work Phone: Calcium [Mass/volume] in Ser um or PlasmaOrdered By: Rubén Tatum on 10-12-2022 Calcium [Mass/Vol] 9.0 mg/dL 8.6-10.3 [facility] Carbon dioxide, total [Moles /volume] in Serum or PlasmaOrdered By: Rubén Tatum on 10-12-2022 CO2 [Moles/Vol] 25.2 mmol/L 21.0-31.0 [facility] Chloride [Moles/volume] in S lisa or PlasmaOrdered By: Rubén Tatum on 10-12-2022 Chloride [Moles/Vol] 107 mmol/L 98-107 [facility] Creatinine [Mass/volume] in Serum or PlasmaOrdered By: Rubén Tatum on 10-12-2022 Creatinine [Mass/Vol] 1.09 mg/dL 0.70-1.30 [facility] Glucose [Mass/volume] in Ser um or PlasmaOrdered By: Rubén Tatum on 10-12-2022 Glucose [Mass/Vol] 100 mg/dL 74-109 [facility] Comment on above: ADA recommended refe rence rangeRandom Glucose Reference Range is dependent on time and content of last meal. Glucose of more than 200 mg/dL in a nonstressed, ambulatory subject supports the diagnosis of Diabetes Mellitus. Laboratory - Chemistry and C hemistry - challengeOrdered By: Rubén Tatum on 10-12-2022 GFR/1.73 sq M.predicted MDRD (S/P/Bld) [Vol rate/Area] mL/min/{1.73_m2} [facility] Magnesium [Mass/volume] in S lisa or PlasmaOrdered By: Rubén Tatum on 10-12-2022 Magnesium [Mass/Vol] 2.2 mg/dL 1.9-2.7 [facility] Natriuretic peptide B [Mass/ Vol]Ordered By: Rubén Tatum on 10-12-2022 Natriuretic peptide B (Bld) [Mass/Vol] 91.0 pg/mL 5-100 [facility] No Panel InformationOrdered By: Rubén Tatum on 10-12-2022 Pharmacy Creatinine Clearance (Chem 79.69 [facility] Potassium [Moles/volume] in Serum or PlasmaOrdered By: Rubén Tatum on 10-12-2022 Potassium [Moles/Vol] 4.2 mmol/L 3.5-5.1 [facility] Serum or plasma anion gap de terminationOrdered By: Rubén Tatum on 10-12-2022 Anion gap [Moles/Vol] 12.0 mmol/L 6.0-15.0 [facility] Sodium [Moles/volume] in Ser um or PlasmaOrdered By: Rubén Tatum on 10-12-2022 Sodium [Moles/Vol] 140 mmol/L 136-145 [facility] Urea nitrogen [Mass/volume] in Serum or PlasmaOrdered By: Rubén Tatum on 10-12-2022 Urea nitrogen [Mass/Vol] 23 mg/dL 7-25 [facility] Alanine aminotransferase [En zymatic activity/volume] in Serum or PlasmaOrdered By: Rubén Tatum on 10-11-2022 ALT [Catalytic activity/Vol] 18 U/L 7-52 [facility] Albumin [Mass/volume] in Ser um or Plasma by Bromocresol green (BCG) dye binding methoOrdered By: Rubén Tatum on 10-11-2022 Albumin BCG dye [Mass/Vol] 3.9 g/dL 3.5-5.7 [facility] Alkaline phosphatase [Enzyma tic activity/volume] in Serum or PlasmaOrdered By: Rubén Tatum on 10-11-2022 ALP [Catalytic activity/Vol] 46 U/L 34-104 [facility] Aspartate aminotransferase [ Enzymatic activity/volume] in Serum or PlasmaOrdered By: Rubén Tatum on 10-11-2022 AST [Catalytic activity/Vol] 30 U/L 13-39 [facility] Basophils Auto (Bld) [#/Vol] Ordered By: Galo Dent on 10-11-2022 Basophils (Bld) [#/Vol] 0.0 10*3/uL 0.0-0.2 [facility] Basophils/100 WBC Auto (Bld) Ordered By: Galo Dent on 10-11-2022 Basophils/100 WBC (Bld) 0.5 % . [facility] Bilirubin.total [Mass/volume ] in Serum or PlasmaOrdered By: Rubén Tatum on 10-11-2022 Bilirubin [Mass/Vol] 0.4 mg/dL 0.3-1.0 [facility] Cholesterol [Mass/volume] in Serum or PlasmaOrdered By: Rubén Tatum on 10-11-2022 Cholesterol [Mass/Vol] 221 mg/dL 140-200 [facility] Comment on above: Chol less than 200 m g/dl low riskChol 201-239 mg/dl borderline riskChol 240 mg/dl and greater high risk Cholesterol in LDL Calc [Mas s/Vol]Ordered By: Rubén Tatum on 10-11-2022 Cholesterol in LDL [Mass/Vol] 149 mg/dL 0-100 [facility] Comment on above: LDL ATP III CLASSIFI CATIONLDL less than 100 mg/dL OptimalLDL 100-129 mg/dL Near or above optimalLDL 130-159 mg/dL Borderline highLDL 160-189 mg/dL HighLDL greater than 189 mg/dL Very high Cholesterol in VLDL Calc [Ma ss/Vol]Ordered By: Rubén Tatum on 10-11-2022 Cholesterol in VLDL [Mass/Vol] 30 mg/dL [facility] Eosinophils Auto (Bld) [#/Vo l]Ordered By: Galo Dent on 10-11-2022 Eosinophils (Bld) [#/Vol] 0.2 10*3/uL 0.0-0.45 [facility] Eosinophils/100 WBC Auto (Bl d)Ordered By: Galo Dent on 10-11-2022 Eosinophils/100 WBC (Bld) 3.7 % . [facility] Erythrocyte distribution wid th Auto (RBC) [Ratio]Ordered By: Galo Dent on 10-11-2022 Erythrocyte distribution width (RBC) [Ratio] 14.9 % 12.0-14.8 [facility] Globulin Calc (S) [Mass/Vol] Ordered By: Rubén Tatum on 10-11-2022 Globulin (S) [Mass/Vol] 2.5 g/dL [facility] Glucose mean value [Mass/vol ume] in Blood Estimated from glycated hemoglobinOrdered By: Galo Dent on 10-11-2022 Average glucose Estimated from glycated hemoglobin (Bld) [Mass/Vol] 120 mg/dL [facility] Hematocrit Auto (Bld) [Volum e fraction]Ordered By: Galo Dent on 10-11-2022 Hematocrit (Bld) [Volume fraction] 37.7 % 38.8-50.0 [facility] Hemoglobin A1c percentageOrd ered By: Galo Dent on 10-11-2022 HbA1c (Bld) [Mass fraction] 5.8 % 4.3-5.6 [facility] Comment on above: Increased risk for d iabetes: 5.7 - 6.4diabetes: >6.4glycemic control for adults with diabetes: <7.0 Hemoglobin [Mass/volume] in BloodOrdered By: Galo Dent on 10-11-2022 Hemoglobin (Bld) [Mass/Vol] 12.7 g/dL 13.0-17.0 [facility] Laboratory - CoagulationOrde red By: Galo Dent on 10-11-2022 PT Coag (PPP) [Time] 11.3 s 9.0-12.9 [facility] Leukocytes [#/volume] correc kal for nucleated erythrocytes in Blood by Automated counOrdered By: Galo Dent on 10-11-2022 WBC corrected for nucl RBC Auto (Bld) [#/Vol] 6.6 10*3/uL 4.1-10.5 [facility] Lymphocytes Auto (Bld) [#/Vo l]Ordered By: Galo Dent on 10-11-2022 Lymphocytes (Bld) [#/Vol] 1.4 10*3/uL 1.00-4.8 [facility] Lymphocytes/100 WBC Auto (Bl d)Ordered By: Galo Dent on 10-11-2022 Lymphocytes/100 WBC (Bld) 21.8 % . [facility] [facility] MCH Auto (RBC) [Entitic mass ]Ordered By: Galo Dent on 10-11-2022 MCH (RBC) [Entitic mass] 30.1 pg 27.5-35.2 [facility] MCHC Auto (RBC) [Mass/Vol]Or dered By: Galo Dent on 10-11-2022 MCHC (RBC) [Mass/Vol] 33.7 g/dL 32.5-35.6 [facility] MCV Auto (RBC) [Entitic vol] Ordered By: Galo Dent on 10-11-2022 MCV (RBC) [Entitic vol] 89.4 fL 83.5-101 [facility] Monocytes Auto (Bld) [#/Vol] Ordered By: Galo Dent on 10-11-2022 Monocytes (Bld) [#/Vol] 0.7 10*3/uL 0.0-0.8 [facility] Monocytes/100 WBC Auto (Bld) Ordered By: Galo Dent on 10-11-2022 Monocytes/100 WBC (Bld) 10.2 % . [facility] Neutrophils Auto (Bld) [#/Vo l]Ordered By: Galo Dent on 10-11-2022 Neutrophils (Bld) [#/Vol] 4.2 10*3/uL 1.8-7.7 [facility] Neutrophils/100 WBC Auto (Bl d)Ordered By: Galo Dent on 10-11-2022 Neutrophils/100 WBC (Bld) 63.8 % . [facility] Nucleated erythrocytes [Pres ence] in Blood by Automated countOrdered By: Galo eDnt on 10-11-2022 Nucleated RBC Auto Ql (Bld) 0.1 /100{WBC} 0-0.5 [facility] Platelet mean volume Auto (B ld) [Entitic vol]Ordered By: Galo Dent on 10-11-2022 Platelet mean volume (Bld) [Entitic vol] 7.3 fL 6.6-10.1 [facility] Platelet poor plasma interna tional normalized ratio (INR) by coagulation assay (relatOrdered By: Glao Dent on 10-11-2022 INR Coag (PPP) [Relative time] 1.0 {INR} [facility] Comment on above: INR Therapeutic Rang [...] 10-11-2022 Platelets (Bld) [#/Vol] 203 10*3/uL 150-450 [facility] Protein [Mass/volume] in Ser um or PlasmaOrdered By: Rubén Tatum on 10-11-2022 Protein [Mass/Vol] 6.4 g/dL 6.4-8.9 [facility] RBC Auto (Bld) [#/Vol]Ordere d By: Galo Dent on 10-11-2022 RBC (Bld) [#/Vol] 4.21 10*6/uL 3.90-5.60 [facility] Serum or plasma albumin/glob ulin mass ratioOrdered By: Rubén Tatum on 10-11-2022 Albumin/Globulin [Mass ratio] 1.6 {ratio} [facility] Serum or plasma high density lipoprotein (HDL) cholesterol measurementOrdered By: Rubén Tatum on 10-11-2022 Cholesterol in HDL [Mass/Vol] 42 mg/dL 29-71 [facility] Comment on above: HDL CHOL ATP-III CLA SSIFICATION Cardiovascular RiskHDL > or equal to 60 mg/dL LOWHDL < 40 mg/dL HIGH Serum or plasma total choles terol/high density lipoprotein (HDL) cholesterol mass ratOrdered By: Rubén Tatum on 10-11-2022 Cholesterol.total/Chol esterol in HDL [Mass ratio] 5.3 {ratio} <5.0 [facility] Triglyceride [Mass/volume] i n Serum or PlasmaOrdered By: Rubén Tatum on 10-11-2022 Triglyceride [Mass/Vol] 152 mg/dL 0-149 [facility] Comment on above: TRIG ATP III [...] <= 0.01 ng/mL [Mass/Vol] 3965.8 pg/mL 0.0-20.0 [facility] Comment on above: Critical Result : Ca lled to and read back by: HECTOR LOCO at: 10/11/2022 06:45:50 by:[id number] WBC Auto (Bld) [#/Vol]Ordere d By: Galo Dent on 10-11-2022 WBC (Bld) [#/Vol] 6.6 10*3/uL 4.1-10.5 [facility] AMYLASEon 10-10-2022 Amylase [Catalytic activity/Vol] 40 U/L Normal 25-115 [facility] Comment on above: Performed By: #### A MY, CMP, LIPA #### [facility] [address] [address] [address] Carrington Chandler Activated partial thrombopla stin time (aPTT) in platelet poor plasma by coagulation aOrdered By: Galo Dent on 10-10-2022 aPTT Coag (PPP) [Time] 35.9 s 25.1-36.5 [facility] CARDIAC ARLIN ADMITon 023 CK [Catalytic activity/Vol] 530 U/L Critically high 39-308 [facility] Comment on above: Performed By: #### A MY, CMP, LIPA #### [facility] [address] [address] [address] Carrington Chandler CK.MB [Mass/Vol] 60.47 ng/mL Critically high <=3.60 [facility] Comment on above: Performed By: #### A MY, CMP, LIPA #### [facility] [address] [address] [address] Carrington Chandler HSTROP 9166.1 pg/mL Critically high 4.0-76.1 [facility] Comment on above: Result Comment: CUT- OFF POINTS HAVE BEEN ESTABLISHED BASED ON THE FOURTH UNIVERSAL DEFINITIONS OF MYOCARDIAL INFARCTION. THE UPPER REFERENCE LIMIT (URL) OF TROPONIN, DEFINED THE 99TH PERCENTILE OF cTnI DISTRIBUTION IN A REFERENCE POPULATION, HAS BEEN CONFIRMED THE DECISION THRESHOLD FOR [place] DIAGNOSIS. Performed By: #### A MY, CMP, LIPA #### [facility] [address] [address] [address] Carrington Chandler SAULO 108 ng/mL Critically high 16-96 [facility] Comment on above: Performed By: #### A MY, CMP, LIPA #### [facility] [address] [address] [address] Carrington Chandler CBC AUTO DIFFon 10-10-2022 BASO # 0.0 103/ul Normal 0.0-0.1 [facility] Comment on above: Performed By: #### B MP #### [facility] [address] [address] [address] Carrington Chandler Basophils/100 WBC (Bld) 0.4 % Normal 0.2-2.0 [facility] Comment on above: Performed By: #### B MP #### [facility] [address] [address] [address] Carrington Chandler EO # 0.3 103/ul Normal 0.0-0.7 [facility] Comment on above: Performed By: #### B MP #### [facility] [address] [address] [address] Carrington Chandler Eosinophils/100 WBC (Bld) 4.9 % Normal 0.9-7.0 [facility] Comment on above: Performed By: #### B MP #### [facility] [address] [address] [address] Carrington Chandler Erythrocyte distribution width (RBC) [Ratio] 13.8 % Normal 11.0-15.0 [facility] Comment on above: Performed By: #### B MP #### [facility] [address] [place] [address] Dr. Carrington Chandler Hematocrit (Bld) [Volume fraction] 38.1 % Critically low 42.0-54.0 [facility] Comment on above: Performed By: #### B MP #### [facility] [address] [address] [address] Carrington Chandler Hemoglobin (Bld) [Mass/Vol] 13.1 g/dL Critically low 14.0-18.0 [facility] Comment on above: Performed By: #### B MP #### [facility] [address] [address] [address] Carrington Chandler IG # 0.01 10e3/ul Normal 0.00-0.03 [facility] Comment on above: Performed By: #### B MP #### [facility] [address] [address] [address] Carrington Chandler IG % 0.2 % Normal 0.0-0.5 [facility] Comment on above: Performed By: #### B MP #### [facility] [address] [place] [address] Dr. Carrington Chandler LYMPH # 1.8 103/ul Normal 1.2-3.8 [facility] Comment on above: Performed By: #### B MP #### [facility] [address] [address] [address] Carrington Chandler Lymphocytes/100 WBC (Bld) 33.5 % Normal 20.5-60.0 [facility] Comment on above: Performed By: #### B MP #### [facility] [address] [place] [address] Dr. Carrington Chandler MANUAL DIFF REQ NO Normal [facility] Comment on above: Performed By: #### B MP #### [facility] [address] [address] [address] Carrington Chandler MCH (RBC) [Entitic mass] 30.7 pg Normal 25.9-34.0 [facility] Comment on above: Performed By: #### B MP #### [facility] [address] [address] [address] Carrington Chandler MCHC (RBC) [Mass/Vol] 34.4 g/dL Normal 29.9-35.2 [facility] Comment on above: Performed By: #### B MP #### [facility] [address] [address] [address] Carrington Chandler MCV (RBC) [Entitic vol] 89.2 fL Normal 80.0-94.0 [facility] Comment on above: Performed By: #### B MP #### [facility] [address] [address] [address] Carrington Chandler MONO # 0.6 103/ul Normal 0.3-0.8 [facility] Comment on above: Performed By: #### B MP #### [facility] [address] [address] [address] Carrington Chandler Monocytes/100 WBC (Bld) 11.8 % Normal 1.7-12.0 [facility] Comment on above: Performed By: #### B MP #### [facility] [address] [place] [address] Dr. Carrington Chandler NEUT # 2.6 103/ul Normal 1.4-6.5 [facility] Comment on above: Performed By: #### B MP #### [facility] [address] [address] [address] Carrington Chandler Neutrophils/100 WBC (Bld) 49.2 % Normal 43.0-75.0 [facility] Comment on above: Performed By: #### B MP #### [facility] [address] [address] [address] Carrington Chandler Platelet mean volume (Bld) [Entitic vol] 9.2 fL Critically low 9.5-13.5 [facility] Comment on above: Performed By: #### B MP #### [facility] [address] [address] [address] Carrington Chandler PLT 213 103/ul Normal 150-450 [facility] Comment on above: Performed By: #### B MP #### [facility] [address] [address] [address] Carrington Chandler RBC 4.27 106/ul Critically low 4.70-6.10 [facility] Comment on above: Performed By: #### B MP #### [facility] [address] [place] [address] Dr. Carrington Chandler WBC 5.4 103/ul Normal 4.0-11.0 [facility] Comment on above: Performed By: #### B MP #### [facility] [address] [place] [address] Dr. Carrington Chandler LIPASEon 10-10-2022 Lipase [Catalytic activity/Vol] 212.0 U/L Normal 73.0-393.0 [facility] Comment on above: Performed By: #### A MY, CMP, LIPA #### [facility] [address] [place] [address] Dr. Carrington Chandler PROF 14(COMP METB)on 023 Albumin [Mass/Vol] 3.9 g/dL Normal 3.4-5.0 [facility] Comment on above: Performed By: #### A MY, CMP, LIPA #### [facility] [address] [place] [address] Dr. Carrington Chandler Albumin/Globulin [Mass ratio] 1.2 {ratio} Normal [facility] Comment on above: Performed By: #### A MY, CMP, LIPA #### [facility] [address] [place] [address] Dr. Carrington Chandler ALP [Catalytic activity/Vol] 67 U/L Normal 46-116 [facility] Comment on above: Performed By: #### A MY, CMP, LIPA #### [facility] [address] [place] [address] Dr. Carrington Chandler ALT [Catalytic activity/Vol] 30 U/L Normal 16-63 [facility] Comment on above: Performed By: #### A MY, CMP, LIPA #### [facility] [address] [place] [address] Dr. Carrington Chandler Anion gap [Moles/Vol] 12.8 mmol/L Normal [facility] [place] Comment on above: Performed By: #### A MY, CMP, LIPA #### [facility] [address] [place] [address] Dr. Carrington Chandler AST [Catalytic activity/Vol] 58 U/L Critically high 15-37 [facility] Comment on above: Performed By: #### A MY, CMP, LIPA #### [facility] [address] [place] [address] Dr. Carrington Chandler Bilirubin [Mass/Vol] 0.3 mg/dL Normal 0.2-1.0 [facility] Comment on above: Performed By: #### A MY, CMP, LIPA #### [facility] [address] [place] [address] Dr. Carrington Chandler Calcium [Mass/Vol] 8.9 mg/dL Normal 8.5-10.1 [facility] Comment on above: Performed By: #### A MY, CMP, LIPA #### [facility] [address] [place] [address] Dr. Carrington Chandler Chloride [Moles/Vol] 101 mmol/L Normal 98-107 [facility] Comment on above: Performed By: #### A MY, CMP, LIPA #### [facility] [address] [place] [address] Dr. Carrington Chandler CO2 [Moles/Vol] 26.0 mmol/L Normal 21.0-32.0 [facility] Comment on above: Performed By: #### A MY, CMP, LIPA #### [facility] [address] [place] [address] Dr. Carrington Chandler Creatinine [Mass/Vol] 0.98 mg/dL Normal 0.70-1.30 [facility] Comment on above: Performed By: #### A MY, CMP, LIPA #### [facility] [address] [place] [address] Dr. Carrington Chandler EGFR-AF [place] >60 Normal >=60 [facility] Comment on above: Performed By: #### A MY, CMP, LIPA #### [facility] [address] [place] [address] Dr. Carrington Chandler EGFR-NON AF [place]IZ[place] >60 Normal >=60 [facility] Comment on above: Performed By: #### A MY, CMP, LIPA #### [facility] [address] [place] [address] Dr. Carrington Chandler Globulin (S) [Mass/Vol] 3.2 g/dL Normal [facility] Comment on above: Performed By: #### A MY, CMP, LIPA #### [facility] [address] [address] [address] Carrington Chandler Glucose [Mass/Vol] 101 mg/dL Normal 74-106 [facility] Comment on above: Performed By: #### A MY, CMP, LIPA #### [facility] [address] [address] [address] Carrington Chandler Potassium [Moles/Vol] 3.8 mmol/L Normal 3.5-5.1 [facility] Comment on above: Performed By: #### A MY, CMP, LIPA #### [facility] [address] [place] [address] Dr. Carrington Chandler Protein [Mass/Vol] 7.1 g/dL Normal 6.4-8.2 [facility] Comment on above: Performed By: #### A MY, CMP, LIPA #### [facility] [address] [address] [address] Carrington Chandler Sodium [Moles/Vol] 136 mmol/L Normal 136-145 [facility] Comment on above: Performed By: #### A MY, CMP, LIPA #### [facility] [address] [address] [address] Carrington Chandler Urea nitrogen [Mass/Vol] 19.0 mg/dL Critically high 7.0-18.0 [facility] Comment on above: Performed By: #### A MY, CMP, LIPA #### [facility] [address] [address] [address] Carrington Chandler Urea nitrogen/Creatinine [Mass ratio] 19.4 mg/mg Normal [facility] Comment on above: Performed By: #### A MY, CMP, LIPA #### [facility] [address] [address] [address] Carrington Chandler PROTIMEon 10-10-2022 INR Coag (PPP) [Relative time] {INR} Normal [facility] Comment on above: Performed By: #### B MP #### [facility] [address], [place] [address] Dr. Carrington Chandler INR GUIDELINES SEE BELOW Normal [facility] Comment on above: Result Comment: LYNDON RED INR: 2.0 - 3.0 CONDITIONS NOT LISTED BELOW 2.5 - 3.5 FOR PROSTHETIC HEART VALVE REPLACEMENT 2.5 - 3.5 RECURRENT THROMBOSIS Performed By: #### B MP #### [facility] [id number] Carrington Chandler PT Coag (PPP) [Time] 9.7 s Normal 9.0-11.6 [facility] Comment on above: Performed By: #### B MP #### [facility] [address] [place] [address] Dr. Carrington Chandler PTTon 10-10-2022 aPTT Coag (Bld) [Time] 29.5 s Normal 22.3-36.2 [facility] [place] Comment on above: Performed By: #### B MP #### [facility] [address] [place] [address] Dr. Carrington Chandler XR ABD FLAT UP_PA [...] XIOMARA SCHNEIDER Date: 2022-10-10 00:33 Normal [facility] XR knee RT 3Von 09-09-2022 XR knee RT 3V [place] [employer] Other XR knee RT 3V [facility] [employer] Other XR knee RT 3V 1111 [facility] [employer] Other XR [place] 3[place] [address] [facility] [employer] Other XR knee RT 3V XRay Report [facility] [employer] Other XR knee RT 3V Signed [employer] Other XR knee RT 3V Patient: Hector Gaspar MR#: [id number] [place] [employer] Other XR knee RT 3V 187 [employer] Other XR knee RT 3V : 1960 Acct:[id number] [place] [employer] Other XR knee RT 3V Age/Sex: 62 / M ADM Date: 09/09/22 [employer] Other XR knee RT 3V Loc: [facility] Room: Type : [facility] [employer] Other XR knee RT 3V Attending Dr: Wagner Marrufo DO [employer] Other XR knee RT 3V Copies to: Wagner Marrufo DO [employer] Other XR knee RT 3V Ordering Provider: Judy Marrufo DO [employer] Other XR knee RT 3V Date of Service: 09/09/22 [employer] Other XR knee RT 3V XR/XR knee RT 3V - NOT FOR ER USE: Acute pain of right knee [employer] Other XR knee RT 3V RIGHT KNEE - 3 views N [facility] [employer] Other XR knee RT 3V CLINICAL HISTORY: Generalized right knee pain for 2 weeks. [employer] Other XR knee RT 3V COMPARISON: None [employer] Other XR knee RT 3V FINDINGS: [employer] Other XR knee RT 3V Small knee joint effusion. Mild degenerative changes without acute bony process. Presumed loose [employer] Other XR knee RT 3V body seen anteriorly within the joint space. [employer] Other XR knee RT 3V X R/XR knee RT 3V - NOT FOR ER USE [employer] Other XR knee RT 3V IMPRESSION: [employer] Other XR knee RT 3V MILD DEGENERATIVE CH ANGES WITHOUT ACUTE BONY PROCESS. [employer] Other XR knee RT 3V Impression dictated by: Parrish Layton Jr., D.OEhsan09/09/2022 3:40 PM [employer] Other XR knee RT 3V Dictation Location: [place] [address] [employer] Other XR knee RT 3V Transcribed By: PWS 09/09/22 [facility] [employer] Other XR knee RT 3V Dictated By: Parrish Layton Jr, DO 09/09/22 1539 [employer] Other XR knee RT 3V Signed By: [employer] Other XR knee RT 3V 09/09/22 1540 [employer] Other CBC AUTO DIFFon 09-08-2022 BASO # 0.0 103/ul Normal 0.0-0.1 [facility] Comment on above: Performed By: #### C BC #### [facility] [address] [address] [address] Carrington Chandler Basophils/100 WBC (Bld) 0.4 % Normal 0.2-2.0 [facility] Comment on above: Performed By: #### C BC #### [facility] [address] [place] [address] Dr. Carrington Chandler EO # 0.3 103/ul Normal 0.0-0.7 [facility] Comment on above: Performed By: #### C BC #### [facility] [address] [place] [address] Dr. Carrington Chandler Eosinophils/100 WBC (Bld) 4.9 % Normal 0.9-7.0 [facility] Comment on above: Performed By: #### C BC #### [facility] [address] [place] [address] Dr. Carrington Chandler Erythrocyte distribution width (RBC) [Ratio] 14.0 % Normal 11.0-15.0 [facility] Comment on above: Performed By: #### C BC #### [facility] [address] [place] [address] Dr. Carrington Chandler Hematocrit (Bld) [Volume fraction] 36.9 % Critically low 42.0-54.0 [facility] Comment on above: Performed By: #### C BC #### [facility] [address] [place] [address] Dr. Carrington Chandler Hemoglobin (Bld) [Mass/Vol] 12.2 g/dL Critically low 14.0-18.0 [facility] Comment on above: Performed By: #### C BC #### [facility] [address] [place] [address] Dr. Carrington Chandler IG # 0.01 10e3/ul Normal 0.00-0.03 [facility] Comment on above: Performed By: #### C BC #### [facility] [address] [place] [address] Dr. Carrington Chandler IG % 0.2 % Normal 0.0-0.5 [facility] Comment on above: Performed By: #### C BC #### [facility] [address] [place] [address] Dr. Carrington Chandler LYMPH # 1.7 103/ul Normal 1.2-3.8 [facility] Comment on above: Performed By: #### C BC #### [facility] [address] [place] [address] Dr. Carrington Chandler Lymphocytes/100 WBC (Bld) 30.6 % Normal 20.5-60.0 [facility] Comment on above: Performed By: #### C BC #### [facility] [address] [place] [address] Dr. Carrington Chandler MANUAL DIFF REQ NO Normal [facility] Comment on above: Performed By: #### C BC #### [facility] [address] [place] [address] Dr. Carrington Chandler MCH (RBC) [Entitic mass] 30.3 pg Normal 25.9-34.0 [facility] Comment on above: Performed By: #### C BC #### [facility] [address] [place] [address] Dr. Carrington Chandler MCHC (RBC) [Mass/Vol] 33.1 g/dL Normal 29.9-35.2 [facility] Comment on above: Performed By: #### C BC #### [facility] [address] [place] [address] Dr. Carrington Chandler MCV (RBC) [Entitic vol] 91.6 fL Normal 80.0-94.0 [facility] Comment on above: Performed By: #### C BC #### [facility] [address] [place] [address] Dr. Carrington Chandler MONO # 0.6 103/ul Normal 0.3-0.8 [facility] Comment on above: Performed By: #### C BC #### [facility] [address] [place] [address] Dr. Carrington Chandler Monocytes/100 WBC (Bld) 9.9 % Normal 1.7-12.0 [facility] Comment on above: Performed By: #### C BC #### [facility] [address] [place] [address] Dr. Carrington Chandler NEUT # 3.0 103/ul Normal 1.4-6.5 [facility] Comment on above: Performed By: #### C BC #### [facility] [address] [address] [address] Carrington Chandler Neutrophils/100 WBC (Bld) 54.0 % Normal 43.0-75.0 [facility] Comment on above: Performed By: #### C BC #### [facility] [address] [address] [address] Carrington Chandler Platelet mean volume (Bld) [Entitic vol] 8.9 fL Critically low 9.5-13.5 [facility] Comment on above: Performed By: #### C BC #### [facility] [address] [address] [address] Carrington Chandler PLT 189 103/ul Normal 150-450 [facility] Comment on above: Performed By: #### C BC #### [facility] [address] [place] [address] Dr. Carrington Chandler RBC 4.03 106/ul Critically low 4.70-6.10 [facility] Comment on above: Performed By: #### C BC #### [facility] [address] [place] [address] Dr. Carrington Chandler WBC 5.5 103/ul Normal 4.0-11.0 [facility] Comment on above: Performed By: #### C BC #### [facility] [address] [place] [address] Dr. Carrington Chandler CRPon 09-08-2022 CRP 0.5 mg/dL Normal <=1.0 [facility] Comment on above: Performed By: #### A MY, CMP, LIPA #### [facility] [address] [place] [address] Dr. Carrington Chandler PROF CHEM 8 (BAS METB)on Anion gap [Moles/Vol] 12.7 mmol/L Normal [facility] [place] Comment on above: Performed By: #### A MY, CMP, LIPA #### [facility] [address] [place] [address] Dr. Carrington Chandler Calcium [Mass/Vol] 8.6 mg/dL Normal 8.5-10.1 [facility] Comment on above: Performed By: #### A MY, CMP, LIPA #### [facility] [address] [address] [address] Carrington Chandler Chloride [Moles/Vol] 102 mmol/L Normal 98-107 [facility] Comment on above: Performed By: #### A MY, CMP, LIPA #### [facility] [address] [address] [address] Carrington Chandler CO2 [Moles/Vol] 27.2 mmol/L Normal 21.0-32.0 [facility] Comment on above: Performed By: #### A MY, CMP, LIPA #### [facility] [address] [address] [address] Carrington Chandler Creatinine [Mass/Vol] 1.11 mg/dL Normal 0.70-1.30 [facility] Comment on above: Performed By: #### A MY, CMP, LIPA #### [facility] [address] [address] [address] Carrington Chandler EGFR-AF [place]IZ[place] >60 Normal >=60 [facility] Comment on above: Performed By: #### A MY, CMP, LIPA #### [facility] [address] [address] [address] Carrington Chandler EGFR-NON AF CITIZEN OF [place] >60 Normal >=60 [facility] Comment on above: Performed By: #### A MY, CMP, LIPA #### [facility] [address] [address] [address] Carrington Chandler Glucose [Mass/Vol] 132 mg/dL Critically high 74-106 [facility] Comment on above: Performed By: #### A MY, CMP, LIPA #### [facility] [address] [address] [address] Carrington Chandler Potassium [Moles/Vol] 3.9 mmol/L Normal 3.5-5.1 [facility] Comment on above: Performed By: #### A MY, CMP, LIPA #### [facility] [address] [address] [address] Carrington Chandler Sodium [Moles/Vol] 138 mmol/L Normal 136-145 [facility] Comment on above: Performed By: #### A MY, CMP, LIPA #### [facility] [address] [address] [address] Carrington Chandler Urea nitrogen [Mass/Vol] 18.0 mg/dL Normal 7.0-18.0 [facility] Comment on above: Performed By: #### A MY, CMP, LIPA #### [facility] [address] [address] [address] Carrington Chandler Urea nitrogen/Creatinine [Mass ratio] 16.2 mg/mg Normal [facility] Comment on above: Performed By: #### A MY, CMP, LIPA #### [facility] [address] [address] [address] Carrington Chandler US [place] DOP LEG [...] by: CYNTHIA VASQUEZ Date: 2022-09-07 22:52 Normal [facility] HEMOGLOBINon 08-10-2022 Hemoglobin (Bld) [Mass/Vol] 13.3 g/dL Critically low 14.0-18.0 [facility] Comment on above: Performed By: #### B MP #### [facility] [address] [address] [address] Carrington Chandler CBC W MANUAL DIFFon 12-17-20 22 ATYPICAL LYMPH # 0.65 103/ul Normal [facility] Comment on above: Performed By: #### A MY, CMP, LIPA #### [facility] [address] [address] [address] Carrington Chandler ATYPICAL LYMPH % 11 % Normal [facility] Comment on above: Performed By: #### A MY, CMP, LIPA #### [facility] [address] [address] [address] Carrington Chandler BAND # 0.0 103/ul Normal 0.0-0.3 [facility] Comment on above: Performed By: #### A MY, CMP, LIPA #### [facility] [address] [address] [address] Carrington Chandler BAND % 0 % Normal 0-5 [facility] Comment on above: Performed By: #### A MY, CMP, LIPA #### [facility] [address] [address] [address] Carrington Chandler BASOM # 0.00 103/ul Normal 0.00-0.10 [facility] Comment on above: Performed By: #### A MY, CMP, LIPA #### [facility] [address] [address] [address] Carrington Chandler BASOM % 0.0 % Critically low 0.2-2.0 [facility] Comment on above: Performed By: #### A MY, CMP, LIPA #### [facility] [address] [address] [address] Carrington Chandler BLAST # Normal [facility] Comment on above: Performed By: #### A MY, CMP, LIPA #### [facility] [address] [address] [address] Carrington Chandler BLAST % Normal [facility] Comment on above: Performed By: #### A MY, CMP, LIPA #### [facility] [address] [address] [address] Carrington Chandler CORRECTED WBC Normal 4.0-11.0 [facility] Comment on above: Performed By: #### A MY, CMP, LIPA #### [facility] [address] [address] [address] Carrington Chandler EOS # 0.00 103/ul Normal 0.00-0.70 [facility] Comment on above: Performed By: #### A MY, CMP, LIPA #### [facility] [address] [place] [address] Dr. Carrington Chandler EOS% 0.0 % Critically low 0.9-7.0 [facility] Comment on above: Performed By: #### A MY, CMP, LIPA #### [facility] [address] [place] [address] Dr. Carrington Chandler HCT 34.7 % Critically low 42.0-54.0 [facility] Comment on above: Performed By: #### A MY, CMP, LIPA #### [facility] [address] [place] [address] Dr. Carrington Chandler HGB 11.7 g/dl Critically low 14.0-18.0 [facility] Comment on above: Performed By: #### A MY, CMP, LIPA #### [facility] [address] [place] [address] Dr. Carrington Chandler LYMPHM # 0.12 103/ul Critically low 1.20-3.80 [facility] Comment on above: Performed By: #### A MY, CMP, LIPA #### [facility] [address] [place] [address] Dr. Carrington Chandler LYMPHM% 2.0 % Critically low 20.5-60.0 [facility] Comment on above: Performed By: #### A MY, CMP, LIPA #### [facility] [address] [place] [address] Dr. Carrington Chandler MCH 29.9 pg Normal 25.9-34.0 [facility] Comment on above: Performed By: #### A MY, CMP, LIPA #### [facility] [address] [place] [address] Dr. Carrington Chandler MCHC 33.7 g/dl Normal 29.9-35.2 [facility] Comment on above: Performed By: #### A MY, CMP, LIPA #### [facility] [address] [address] [address] Carrington Chandler MCV 88.7 fL Normal 80.0-94.0 [facility] Comment on above: Performed By: #### A MY, CMP, LIPA #### [facility] [address] [address] [address] Carrington Chandler METAMYELOCYTE # Normal [facility] Comment on above: Performed By: #### A MY, CMP, LIPA #### [facility] [address] [address] [address] Carrington Chandler METAMYELOCYTE % Normal [facility] Comment on above: Performed By: #### A MY, CMP, LIPA #### [facility] [address] [place] [address] Dr. Carrington Chandler MONOM# 0.00 103/ul Critically low 0.30-0.80 [facility] Comment on above: Performed By: #### A MY, CMP, LIPA #### [facility] [address] [place] [address] Dr. Carrington Chandler MONOM% 0.0 % Critically low 1.7-12.0 [facility] Comment on above: Performed By: #### A MY, CMP, LIPA #### [facility] [address] [place] [address] Dr. Carrington Chandler MPV 9.4 fL Critically low 9.5-13.5 [facility] Comment on above: Performed By: #### A MY, CMP, LIPA #### [facility] [address] [place] [address] Dr. Carrington Chandler MYELOCYTE # Normal [facility] Comment on above: Performed By: #### A MY, CMP, LIPA #### [facility] [address] [place] [address] Dr. Carrington Chandler MYELOCYTE % Normal [facility] Comment on above: Performed By: #### A MY, CMP, LIPA #### [facility] [address] [place] [address] Dr. Carrington Chandler NRBC Normal [facility] Comment on above: Performed By: #### A MY, CMP, LIPA #### [facility] [address] [place] [address] Dr. Carrington Chandler PLT 160 103/ul Normal 150-450 [facility] Comment on above: Performed By: #### A MY, CMP, LIPA #### [facility] [address] [address] [address] Carrington Chandler RBC 3.91 106/ul Critically low 4.70-6.10 [facility] Comment on above: Performed By: #### A MY, CMP, LIPA #### [facility] [address] [place] [address] Dr. Carrington Chandler RDW 12.4 % Normal 11.0-15.0 [facility] Comment on above: Performed By: #### A MY, CMP, LIPA #### [facility] [address] [place] [address] Dr. Carrington Chandler SEG # 5.13 103/ul Normal 1.40-6.50 [facility] Comment on above: Performed By: #### A MY, CMP, LIPA #### [facility] [address] [place] [address] Dr. Carrington Chandler SEG % 87.0 % Critically high 43.0-75.0 [facility] Comment on above: Performed By: #### A MY, CMP, LIPA #### [facility] [address] [place] [address] Dr. Carrington Chandler WBC 5.9 103/ul Normal 4.0-11.0 [facility] Comment on above: Performed By: #### A MY, CMP, LIPA #### [facility] [address] [place] [address] Dr. Carrington Chandler PROF 14(COMP METB)on 022 Albumin [Mass/Vol] 3.0 g/dL Critically low 3.4-5.0 [facility] Comment on above: Performed By: #### C MP #### [facility] [address] [place] [address] Dr. Carrington Chandler Albumin/Globulin [Mass ratio] 0.9 {ratio} Normal [facility] Comment on above: Performed By: #### C MP #### [facility] [address] [place] [address] Dr. Carrington Chandler ALP [Catalytic activity/Vol] 56 U/L Normal 46-116 [facility] Comment on above: Performed By: #### C MP #### [facility] [address] [place] [address] Dr. Carrington Chandler ALT [Catalytic activity/Vol] 21 U/L Normal 16-63 [facility] Comment on above: Performed By: #### C MP #### [facility] [address] [place] [address] Dr. Carrington Chandler Anion gap [Moles/Vol] 12.9 mmol/L Normal [facility] Comment on above: Performed By: #### C MP #### [facility] [address] [place] [address] Dr. Carrington Chandler AST [Catalytic activity/Vol] 15 U/L Normal 15-37 [facility] Comment on above: Performed By: #### C MP #### [facility] [address] [place] [address] Dr. Carrington Chandler Bilirubin [Mass/Vol] 0.2 mg/dL Normal 0.2-1.0 [facility] Comment on above: Performed By: #### C MP #### [facility] [address] [place] [address] Dr. Carrington Chandler Calcium [Mass/Vol] 8.1 mg/dL Critically low 8.5-10.1 [facility] Comment on above: Performed By: #### C MP #### [facility] [address] [place] [address] Dr. Carrington Chandler Chloride [Moles/Vol] 104 mmol/L Normal 98-107 [facility] Comment on above: Performed By: #### C MP #### [facility] [address] [place] [address] Dr. Carrington Chandler CO2 [Moles/Vol] 24.6 mmol/L Normal 21.0-32.0 [facility] Comment on above: Performed By: #### C MP #### [facility] [address] [address] [address] Carrington Chandler Creatinine [Mass/Vol] 0.88 mg/dL Normal 0.70-1.30 [facility] Comment on above: Performed By: #### C MP #### [facility] [address] [address] [address] Carrington Chandler EGFR-AF [place] >60 Normal >=60 [facility] Comment on above: Performed By: #### C MP #### [facility] [address] [address] [address] Carrington Chandler EGFR-NON AF [place]IZ[place] >60 Normal >=60 [facility] Comment on above: Performed By: #### C MP #### [facility] [address] [place] [address] Dr. Carrington Chandler Globulin (S) [Mass/Vol] 3.3 g/dL Normal [facility] Comment on above: Performed By: #### C MP #### [facility] [address] [address] [address] Carrington Chandler Glucose [Mass/Vol] 174 mg/dL Critically high 74-106 [facility] Comment on above: Performed By: #### C MP #### [facility] [address] [place] [address] Dr. Carrington Chandler Potassium [Moles/Vol] 3.5 mmol/L Normal 3.5-5.1 [facility] Comment on above: Performed By: #### C MP #### [facility] [address] [place] [address] Dr. Carrington Chandler Protein [Mass/Vol] 6.3 g/dL Critically low 6.4-8.2 [facility] Comment on above: Performed By: #### C MP #### [facility] [address] [address] [address] Carrington Chandler Sodium [Moles/Vol] 138 mmol/L Normal 136-145 [facility] Comment on above: Performed By: #### C MP #### [facility] [address] [place] [address] Dr. Carrington Chandler Urea nitrogen [Mass/Vol] 17.0 mg/dL Normal 7.0-18.0 [facility] Comment on above: Performed By: #### C MP #### [facility] [address] [place] [address] Dr. Carrington Chandler Urea nitrogen/Creatinine [Mass ratio] 19.3 mg/mg Normal [facility] Comment on above: Performed By: #### C MP #### [facility] [address] [place] [address] Dr. Carrington Chandler CBC AUTO DIFFon 07-10-2022 BASO # 0.0 103/ul Normal 0.0-0.1 [facility] Comment on above: Performed By: #### B MP #### [facility] [address] [place] [address] Dr. Carrington Chandler Basophils/100 WBC (Bld) 0.2 % Normal 0.2-2.0 [facility] Comment on above: Performed By: #### B MP #### [facility] [address] [place] [address] Dr. Carrington Chandler EO # 0.1 103/ul Normal 0.0-0.7 [facility] Comment on above: Performed By: #### B MP #### [facility] [address] [place] [address] Dr. Carrington Chandler Eosinophils/100 WBC (Bld) 2.3 % Normal 0.9-7.0 [facility] Comment on above: Performed By: #### B MP #### [facility] [address] [place] [address] Dr. Carrington Chandler Erythrocyte distribution width (RBC) [Ratio] 12.5 % Normal 11.0-15.0 [facility] Comment on above: Performed By: #### B MP #### [facility] [address] [place] [address] Dr. Carrington Chandler Hematocrit (Bld) [Volume fraction] 36.8 % Critically low 42.0-54.0 [facility] Comment on above: Performed By: #### B MP #### [facility] [address] [place] [address] Dr. Carrington Chandler Hemoglobin (Bld) [Mass/Vol] 12.3 g/dL Critically low 14.0-18.0 [facility] Comment on above: Performed By: #### B MP #### [facility] [address] [place] [address] Dr. Carrington Chandler IG # 0.01 10e3/ul Normal 0.00-0.03 [facility] Comment on above: Performed By: #### B MP #### [facility] [address] [place] [address] Dr. Carrington Chandler IG % 0.2 % Normal 0.0-0.5 [facility] Comment on above: Performed By: #### B MP #### [facility] [address] [place] [address] Dr. Carrington Chandler LYMPH # 1.5 103/ul Normal 1.2-3.8 [facility] Comment on above: Performed By: #### B MP #### [facility] [address] [place] [address] Dr. Carrington Chandler Lymphocytes/100 WBC (Bld) 34.7 % Normal 20.5-60.0 [facility] Comment on above: Performed By: #### B MP #### [facility] [address] [place] [address] Dr. Carrington Chandler MANUAL DIFF REQ NO Normal [facility] Comment on above: Performed By: #### B MP #### [facility] [address] [place] [address] Dr. Carrington Chandler MCH (RBC) [Entitic mass] 29.8 pg Normal 25.9-34.0 [facility] Comment on above: Performed By: #### B MP #### [facility] [address] [place] [address] Dr. Carrington Chandler MCHC (RBC) [Mass/Vol] 33.4 g/dL Normal 29.9-35.2 [facility] Comment on above: Performed By: #### B MP #### [facility] [address] [address] [address] Carrington Chandler MCV (RBC) [Entitic vol] 89.1 fL Normal 80.0-94.0 [facility] Comment on above: Performed By: #### B MP #### [facility] [address] [address] [address] Carrington Chandler MONO # 0.5 103/ul Normal 0.3-0.8 [facility] Comment on above: Performed By: #### B MP #### [facility] [address] [address] [address] Carrington Chandler Monocytes/100 WBC (Bld) 11.0 % Normal 1.7-12.0 [facility] Comment on above: Performed By: #### B MP #### [facility] [address] [address] [address] Carrington Chandler NEUT # 2.2 103/ul Normal 1.4-6.5 [facility] Comment on above: Performed By: #### B MP #### [facility] [address] [address] [address] Carrington Chandler Neutrophils/100 WBC (Bld) 51.6 % Normal 43.0-75.0 [facility] Comment on above: Performed By: #### B MP #### [facility] [address] [address] [address] Carrington Chandler Platelet mean volume (Bld) [Entitic vol] 9.0 fL Critically low 9.5-13.5 [facility] Comment on above: Performed By: #### B MP #### [facility] [address] [place] [address] Dr. Carrington Chandler PLT 147 103/ul Critically low 150-450 [facility] Comment on above: Performed By: #### B MP #### [facility] [address] [address] [address] Carrington Chandler RBC 4.13 106/ul Critically low 4.70-6.10 [facility] Comment on above: Performed By: #### B MP #### [facility] [address] [address] [address] Carrington Chandler WBC 4.4 103/ul Normal 4.0-11.0 [facility] Comment on above: Performed By: #### B MP #### [facility] [address] [place] [address] Dr. Carrington Chandler CULTURE SPUTUMon 07-10-2022 CULTURE SPUTUM Culture Observations : NORMAL RESPIRATORY SANDY. Normal [facility] Comment on above: Performed By: #### C MP #### [facility] [address] [place] [address] Dr. Crarington Chandler MAGNESIUMon 07-10-2022 Magnesium [Mass/Vol] 2.0 mg/dL Normal 1.8-2.4 [facility] Comment on above: Performed By: #### C MP #### [facility] [address] [place] [address] Dr. Carrington Chandler PROF 14(COMP METB)on 022 Albumin [Mass/Vol] 2.8 g/dL Critically low 3.4-5.0 [facility] Comment on above: Performed By: #### B MP #### [facility] [address] [place] [address] Dr. Carrington Chandler Albumin/Globulin [Mass ratio] 0.8 {ratio} Normal [facility] Comment on above: Performed By: #### B MP #### [facility] [address] [place] [address] Dr. Carrington Chandler ALP [Catalytic activity/Vol] 55 U/L Normal 46-116 [facility] Comment on above: Performed By: #### B MP #### [facility] [address] [place] [address] Dr. Carrington Chandler ALT [Catalytic activity/Vol] 22 U/L Normal 16-63 [facility] Comment on above: Performed By: #### B MP #### [facility] [address] [place] [address] Dr. Carrington Chandler Anion gap [Moles/Vol] 10.3 mmol/L Normal [facility] Comment on above: Performed By: #### B MP #### [facility] [address] [place] [address] Dr. Carrington Chandler AST [Catalytic activity/Vol] 22 U/L Normal 15-37 [facility] Comment on above: Performed By: #### B MP #### [facility] [address] [address] [address] Carrington Chandler Bilirubin [Mass/Vol] 0.2 mg/dL Normal 0.2-1.0 [facility] Comment on above: Performed By: #### B MP #### [facility] [address] [address] [address] Carrington Chandler Calcium [Mass/Vol] 8.0 mg/dL Critically low 8.5-10.1 [facility] Comment on above: Performed By: #### B MP #### [facility] [address] [place] [address] Dr. Carrington Chandler Chloride [Moles/Vol] 105 mmol/L Normal 98-107 [facility] Comment on above: Performed By: #### B MP #### [facility] [address] [address] [address] Carrington Chandler CO2 [Moles/Vol] 28.1 mmol/L Normal 21.0-32.0 [facility] Comment on above: Performed By: #### B MP #### [facility] [address] [place] [address] Dr. Carrington Chandler Creatinine [Mass/Vol] 0.89 mg/dL Normal 0.70-1.30 [facility] Comment on above: Performed By: #### B MP #### [facility] [address] [address] [address] Carrington Chandler EGFR-AF [place] >60 Normal >=60 [facility] Comment on above: Performed By: #### B MP #### [facility] [address] [address] [address] Carrington Chandler EGFR-NON AF [place]IZ[place] OF [place] >60 Normal >=60 [facility] Comment on above: Performed By: #### B MP #### [facility] [address] [address] [address] Carrington Chandler Globulin (S) [Mass/Vol] 3.7 g/dL Normal [facility] Comment on above: Performed By: #### B MP #### [facility] [address] [address] [address] Carrington Chandler Glucose [Mass/Vol] 124 mg/dL Critically high 74-106 [facility] Comment on above: Performed By: #### B MP #### [facility] [address] [address] [address] Carrington hCandler Potassium [Moles/Vol] 3.4 mmol/L Critically low 3.5-5.1 [facility] Comment on above: Performed By: #### B MP #### [facility] [address] [address] [address] Carrington Chandler Protein [Mass/Vol] 6.5 g/dL Normal 6.4-8.2 [facility] Comment on above: Performed By: #### B MP #### [facility] [address] [address] [address] Carrington Chandler Sodium [Moles/Vol] 140 mmol/L Normal 136-145 [facility] Comment on above: Performed By: #### B MP #### [facility] [address] [address] [address] Carrington Chandler Urea nitrogen [Mass/Vol] 15.0 mg/dL Normal 7.0-18.0 [facility] Comment on above: Performed By: #### B MP #### [facility] [address] [address] [address] Carrington Chandler Urea nitrogen/Creatinine [Mass ratio] 16.9 mg/mg Normal [facility] Comment on above: Performed By: #### B MP #### [facility] [address] [address] [address] Carrington Chandler CBC AUTO DIFFon 07-09-2022 BASO # 0.0 103/ul Normal 0.0-0.1 [facility] Comment on above: Performed By: #### A MY, CMP, LIPA #### [facility] [address] [address] [address] Carrington Chandler Basophils/100 WBC (Bld) 0.2 % Normal 0.2-2.0 [facility] Comment on above: Performed By: #### A MY, CMP, LIPA #### [facility] [address] [place] [address] Dr. Carrington Chandler EO # 0.1 103/ul Normal 0.0-0.7 [facility] Comment on above: Performed By: #### A MY, CMP, LIPA #### [facility] [address] [place] [address] Dr. Carrington Chandler Eosinophils/100 WBC (Bld) 1.9 % Normal 0.9-7.0 [facility] Comment on above: Performed By: #### A MY, CMP, LIPA #### [facility] [address] [place] [address] Dr. Carrington Chandler Erythrocyte distribution width (RBC) [Ratio] 12.6 % Normal 11.0-15.0 [facility] Comment on above: Performed By: #### A MY, CMP, LIPA #### [facility] [address] [place] [address] Dr. Carrington Chandler Hematocrit (Bld) [Volume fraction] 38.8 % Critically low 42.0-54.0 [facility] Comment on above: Performed By: #### A MY, CMP, LIPA #### [facility] [address] [place] [address] Dr. Carrington Chandler Hemoglobin (Bld) [Mass/Vol] 12.9 g/dL Critically low 14.0-18.0 [facility] Comment on above: Performed By: #### A MY, CMP, LIPA #### [facility] [address] [place] [address] Dr. Carrington Chandler IG # 0.01 10e3/ul Normal 0.00-0.03 [facility] Comment on above: Performed By: #### A MY, CMP, LIPA #### [facility] [address] [place] [address] Dr. Carrington Chandler IG % 0.2 % Normal 0.0-0.5 [facility] Comment on above: Performed By: #### A MY, CMP, LIPA #### [facility] [address] [address] [address] Carrington Chandler LYMPH # 1.7 103/ul Normal 1.2-3.8 [facility] Comment on above: Performed By: #### A MY, CMP, LIPA #### [facility] [address] [place] [address] Dr. Carrington Chandler Lymphocytes/100 WBC (Bld) 34.7 % Normal 20.5-60.0 [facility] Comment on above: Performed By: #### A MY, CMP, LIPA #### [facility] [address] [place] [address] Dr. Carrington Chandler MANUAL DIFF REQ NO Normal [facility] Comment on above: Performed By: #### A MY, CMP, LIPA #### [facility] [address] [place] [address] Dr. Carrington Chandler MCH (RBC) [Entitic mass] 29.9 pg Normal 25.9-34.0 [facility] Comment on above: Performed By: #### A MY, CMP, LIPA #### [facility] [address] [place] [address] Dr. Carrington Chandler MCHC (RBC) [Mass/Vol] 33.2 g/dL Normal 29.9-35.2 [facility] Comment on above: Performed By: #### A MY, CMP, LIPA #### [facility] [address] [place] [address] Dr. Carrington Chandler MCV (RBC) [Entitic vol] 90.0 fL Normal 80.0-94.0 [facility] Comment on above: Performed By: #### A MY, CMP, LIPA #### [facility] [address] [place] [address] Dr. Carrington Chandler MONO # 0.5 103/ul Normal 0.3-0.8 [facility] Comment on above: Performed By: #### A MY, CMP, LIPA #### [facility] [address] [place] [address] Dr. Carrington Chandler Monocytes/100 WBC (Bld) 10.4 % Normal 1.7-12.0 [facility] Comment on above: Performed By: #### A MY, CMP, LIPA #### [facility] [address] [place] [address] Dr. Carrington Chandler NEUT # 2.5 103/ul Normal 1.4-6.5 [facility] Comment on above: Performed By: #### A MY, CMP, LIPA #### [facility] [address] [place] [address] Dr. Carrington Chandler Neutrophils/100 WBC (Bld) 52.6 % Normal 43.0-75.0 [facility] Comment on above: Performed By: #### A MY, CMP, LIPA #### [facility] [address] [place] [address] Dr. Carrington Chandler Platelet mean volume (Bld) [Entitic vol] 9.0 fL Critically low 9.5-13.5 [facility] Comment on above: Performed By: #### A MY, CMP, LIPA #### [facility] [address] [place] [address] Dr. Carrington Chandler PLT 155 103/ul Normal 150-450 [facility] Comment on above: Performed By: #### A MY, CMP, LIPA #### [facility] [address] [place] [address] Dr. Carrington Chandler RBC 4.31 106/ul Critically low 4.70-6.10 [facility] Comment on above: Performed By: #### A MY, CMP, LIPA #### [facility] [address] [place] [address] Dr. Carrington Chandler WBC 4.8 103/ul Normal 4.0-11.0 [facility] Comment on above: Performed By: #### A MY, CMP, LIPA #### [facility] [address] [place] [address] Dr. Carrington Chandler [facility] SARS-CoV-2 (COVID-19) RNA CHARLIE+probe Ql (Unsp spec) Not detected Normal NOT DETECTED [facility] Comment on above: Result Comment: When [...] for this test is supported by the [place] of Health and Human Service's declaration that [...] used). Performed By: #### C MP #### [facility] [address] [place] [address] Dr. Carrington Chandler ER URINE PROFILEon 2 Bilirubin Ql (U) Negative Normal NEGATIVE [facility] Comment on above: Performed By: #### C MP #### [facility] [address] [place] [address] Dr. Carrington Chandler Clarity (U) CLEAR Normal CLEAR [facility] Comment on above: Performed By: #### C MP #### [facility] [address] [place] [address] Dr. Carrington Chandler Color (U) LT. YELLOW Normal YELLOW [facility] Comment on above: Performed By: #### C MP #### [facility] [address] [place] [address] Dr. Carrington Chandler ERUAHD A micrscopic examina tion will be performed if indicated. Normal [facility] Comment on above: Performed By: #### C MP #### [facility] [address] [place] [address] Dr. Carrington Chandler Glucose Ql (U) Negative Normal NEGATIVE [facility] Comment on above: Performed By: #### C MP #### [facility] [address] [place] [address] Dr. Carrington Chandler Hemoglobin Ql (U) Negative Normal NEGATIVE [facility] Comment on above: Performed By: #### C MP #### [facility] [address] [place] [address] Dr. Carrington Chandler Ketones Ql (U) Negative Normal NEGATIVE [facility] Comment on above: Performed By: #### C MP #### [facility] [address] [place] [address] Dr. Carrington Chandler LEUKOCYTES Negative Normal NEGATIVE [facility] Comment on above: Performed By: #### C MP #### [facility] [address] [place] [address] Dr. Carrington Chandler Nitrite Ql (U) Negative Normal NEGATIVE [facility] Comment on above: Performed By: #### C MP #### [facility] [address] [place] [address] Dr. Carrington Chandler pH (U) 6.0 [pH] Normal 5-9 [facility] Comment on above: Performed By: #### C MP #### [facility] [address] [place] [address] Dr. Carrington Chandler SPEC GRAVITY 1.010 Normal 1.005-<=1. 025 [facility] Comment on above: Performed By: #### C MP #### [facility] [address] [place] [address] Dr. Carrington Chandler UA PROTEIN Negative Normal NEGATIVE/ TRACE [facility] Comment on above: Performed By: #### C MP #### [facility] [address] [place] [address] Dr. Carrington Chandler UR MICRO IND NOT INDICATED Normal [facility] Comment on above: Performed By: #### C MP #### [facility] [address] [place] [address] Dr. Carrington Chandler Urobilinogen Qn (U) 0.2 {Lars'U}/dL Normal 0.2 - 1. 0 [facility] Comment on above: Performed By: #### C MP #### [facility] [address] [place] [address] Dr. Carrington Chandler PROF CHEM 8 (BAS METB)on Anion gap [Moles/Vol] 6.6 mmol/L Normal [facility] Comment on above: Performed By: #### B MP #### [facility] [address] [address] [address] Carrington Chandler Calcium [Mass/Vol] 8.2 mg/dL Critically low 8.5-10.1 [facility] Comment on above: Performed By: #### B MP #### [facility] [address] [address] [address] Carrington Chandler Chloride [Moles/Vol] 102 mmol/L Normal 98-107 [facility] Comment on above: Performed By: #### B MP #### [facility] [address] [address] [address] Carrington Chandler CO2 [Moles/Vol] 31.2 mmol/L Normal 21.0-32.0 [facility] Comment on above: Performed By: #### B MP #### [facility] [address] [address] [address] Carrington Chandler Creatinine [Mass/Vol] 0.90 mg/dL Normal 0.70-1.30 [facility] Comment on above: Performed By: #### B MP #### [facility] [address] [place] [address] Dr. Carrington Chandler EGFR-AF [place] >60 Normal >=60 [facility] Comment on above: Performed By: #### B MP #### [facility] [address] [address] [address] Carrington Chandler EGFR-NON AF [place]IZ[place] >60 Normal >=60 [facility] Comment on above: Performed By: #### B MP #### [facility] [address] [address] [address] Carrington Chandler Glucose [Mass/Vol] 100 mg/dL Normal 74-106 [facility] Comment on above: Performed By: #### B MP #### [facility] [address] [address] [address] Carrington Chandler Potassium [Moles/Vol] 3.8 mmol/L Normal 3.5-5.1 [facility] Comment on above: Performed By: #### B MP #### [facility] [address] [address] [address] Carrington Chandler Sodium [Moles/Vol] 136 mmol/L Normal 136-145 [facility] Comment on above: Performed By: #### B MP #### [facility] [address], [place] [address] Dr. Carrington Chandler Urea nitrogen [Mass/Vol] 16.0 mg/dL Normal 7.0-18.0 [facility] Comment on above: Performed By: #### B MP #### [facility] [id number] Carrington Chandler Urea nitrogen/Creatinine [Mass ratio] 17.8 mg/mg Normal [facility] Comment on above: Performed By: #### B MP #### [facility] [id number] Carrington Chandler XR CHEST 1 Von [...] TEE LEWIS Date: 2022-07-09 20:51 Normal [facility] AMYLASEon 07-08-2022 Amylase [Catalytic activity/Vol] 40 U/L Normal 25-115 [facility] Comment on above: Performed By: #### A MY, CMP, LIPA #### [facility] [address], [place] [address] Dr. Carrington Chandler CBC AUTO DIFFon 07-08-2022 BASO # 0.0 103/ul Normal 0.0-0.1 [facility] Comment on above: Performed By: #### C BC #### [facility] [id number] Carrington Chandler Basophils/100 WBC (Bld) 0.3 % Normal 0.2-2.0 [facility] Comment on above: Performed By: #### C BC #### [facility] [address] [place] [address] Dr. Carrington Chandler EO # 0.1 103/ul Normal 0.0-0.7 [facility] Comment on above: Performed By: #### C BC #### [facility] [address] [place] [address] Dr. Carrington Chandler Eosinophils/100 WBC (Bld) 1.2 % Normal 0.9-7.0 [facility] Comment on above: Performed By: #### C BC #### [facility] [address] [place] [address] Dr. Carrington Chandler Erythrocyte distribution width (RBC) [Ratio] 12.9 % Normal 11.0-15.0 [facility] Comment on above: Performed By: #### C BC #### [facility] [address] [place] [address] Dr. Carrington Chandler Hematocrit (Bld) [Volume fraction] 43.2 % Normal 42.0-54.0 [facility] Comment on above: Performed By: #### C BC #### [facility] [address] [place] [address] Dr. Carrington Chandler Hemoglobin (Bld) [Mass/Vol] 14.4 g/dL Normal 14.0-18.0 [facility] Comment on above: Performed By: #### C BC #### [facility] [address] [place] [address] Dr. Carrington Chandler IG # 0.02 10e3/ul Normal 0.00-0.03 [facility] Comment on above: Performed By: #### C BC #### [facility] [address] [place] [address] Dr. Carrington Chandler IG % 0.3 % Normal 0.0-0.5 [facility] Comment on above: Performed By: #### C BC #### [facility] [address] [place] [address] Dr. Carrington Chandler LYMPH # 1.6 103/ul Normal 1.2-3.8 [facility] Comment on above: Performed By: #### C BC #### [facility] [address] [place] [address] Dr. Carrington Chandler Lymphocytes/100 WBC (Bld) 24.0 % Normal 20.5-60.0 [facility] Comment on above: Performed By: #### C BC #### [facility] [address] [place] [address] Dr. Carrington Chandler MANUAL DIFF REQ NO Normal [facility] Comment on above: Performed By: #### C BC #### [facility] [address] [place] [address] Dr. Carrington Chandler MCH (RBC) [Entitic mass] 30.2 pg Normal 25.9-34.0 [facility] Comment on above: Performed By: #### C BC #### [facility] [address] [place] [address] Dr. Carrington Chandler MCHC (RBC) [Mass/Vol] 33.3 g/dL Normal 29.9-35.2 [facility] Comment on above: Performed By: #### C BC #### [facility] [address] [place] [address] Dr. Carrington Chandler MCV (RBC) [Entitic vol] 90.6 fL Normal 80.0-94.0 [facility] Comment on above: Performed By: #### C BC #### [facility] [address] [place] [address] Dr. Carrington Chandler MONO # 0.6 103/ul Normal 0.3-0.8 [facility] Comment on above: Performed By: #### C BC #### [facility] [address] [place] [address] Dr. Carrington Chandler Monocytes/100 WBC (Bld) 9.4 % Normal 1.7-12.0 [facility] Comment on above: Performed By: #### C BC #### [facility] [address] [place] [address] Dr. Carrington Chandler NEUT # 4.4 103/ul Normal 1.4-6.5 [facility] Comment on above: Performed By: #### C BC #### [facility] [address] [place] [address] Dr. Carrington Chandler Neutrophils/100 WBC (Bld) 64.8 % Normal 43.0-75.0 [facility] Comment on above: Performed By: #### C BC #### [facility] [address] [place] [address] Dr. Carrington Chandler Platelet mean volume (Bld) [Entitic vol] 9.5 fL Normal 9.5-13.5 [facility] Comment on above: Performed By: #### C BC #### [facility] [address] [place] [address] Dr. Carrington Chandler PLT 174 103/ul Normal 150-450 [facility] Comment on above: Performed By: #### C BC #### [facility] [address] [place] [address] Dr. Carrington Chandler RBC 4.77 106/ul Normal 4.70-6.10 [facility] Comment on above: Performed By: #### C BC #### [facility] [address] [place] [address] Dr. Carrington Chandler WBC 6.7 103/ul Normal 4.0-11.0 [facility] Comment on above: Performed By: #### C BC #### [facility] [address] [place] [address] Dr. Carrington Chandler [facility] SARS-CoV-2 (COVID-19) RNA CHARLIE+probe Ql (Unsp spec) Not detected Normal NOT DETECTED [facility] Comment on above: Result Comment: When [...] for this test is supported by the [place] of Health and Human Service's declaration that [...] used). Performed By: #### B MP #### [facility] [address] [place] [address] Dr. Carrington Chandler INFLUENZA A AND B AGon 07-08 INFLUANEGH SEE BELOW Normal [facility] Comment on above: Result Comment: Nega tive for Flu A protein angiten. Infection due to Flu A cannot be ruled out. Flu A angiten in the sample may be below the detection limit of the test. Performed By: #### B MP #### [facility] [address] [place] [address] Dr. Carrington Chandler INFLUBNEGH SEE BELOW Normal [facility] Comment on above: Result Comment: Nega tive for Flu B protein antigen. Infection due to Flu B cannot be ruled out. Flu B antigen in the sample may be below the detection limit of the test. Performed By: #### B MP #### [facility] [address] [place] [address] Dr. Carrington Chandler INFLUENZA A AG Negative Normal NEGATIVE SEE COMMENT [facility] Comment on above: Performed By: #### B MP #### [facility] [address] [place] [address] Dr. Carrington Chandler INFLUENZA B AG Negative Normal NEGATIVE SEE COMMENT [facility] Comment on above: Performed By: #### B MP #### [facility] [address] [place] [address] Dr. Carrington Chandler INTERNAL CONTROLS Within Normal Limits Normal Wi thin Normal Limits [facility] Comment on above: Performed By: #### B MP #### [facility] [address] [place] [address] Dr. Carrington Chandler LIPASEon 07-08-2022 Lipase [Catalytic activity/Vol] 195.0 U/L Normal 73.0-393.0 [facility] Comment on above: Performed By: #### A MY, CMP, LIPA #### [facility] [address] [place] [address] Dr. Carrington Chandler PROF 14(COMP METB)on 022 Albumin [Mass/Vol] 3.4 g/dL Normal 3.4-5.0 [facility] Comment on above: Performed By: #### A MY, CMP, LIPA #### [facility] [address] [address] [address] Carrington Chandler Albumin/Globulin [Mass ratio] 0.8 {ratio} Normal [facility] Comment on above: Performed By: #### A MY, CMP, LIPA #### [facility] [address] [place] [address] Dr. Carrington Chandler ALP [Catalytic activity/Vol] 61 U/L Normal 46-116 [facility] Comment on above: Performed By: #### A MY, CMP, LIPA #### [facility] [address] [place] [address] Dr. Carrington Chandler ALT [Catalytic activity/Vol] 26 U/L Normal 16-63 [facility] Comment on above: Performed By: #### A MY, CMP, LIPA #### [facility] [address] [place] [address] Dr. Carrington Chandler Anion gap [Moles/Vol] 11.0 mmol/L Normal [facility] Comment on above: Performed By: #### A MY, CMP, LIPA #### [facility] [address] [place] [address] Dr. Carrington Chandler AST [Catalytic activity/Vol] 30 U/L Normal 15-37 [facility] Comment on above: Performed By: #### A MY, CMP, LIPA #### [facility] [address] [place] [address] Dr. Carrington Chandler Bilirubin [Mass/Vol] 0.3 mg/dL Normal 0.2-1.0 [facility] Comment on above: Performed By: #### A MY, CMP, LIPA #### [facility] [address] [place] [address] Dr. Carrington Chandler Calcium [Mass/Vol] 8.4 mg/dL Critically low 8.5-10.1 [facility] Comment on above: Performed By: #### A MY, CMP, LIPA #### [facility] [address] [address] [address] Carrington Chandler Chloride [Moles/Vol] 102 mmol/L Normal 98-107 [facility] Comment on above: Performed By: #### A MY, CMP, LIPA #### [facility] [address] [address] [address] Carrington Chandler CO2 [Moles/Vol] 28.1 mmol/L Normal 21.0-32.0 [facility] Comment on above: Performed By: #### A MY, CMP, LIPA #### [facility] [address] [place] [address] Dr. Carrington Chandler Creatinine [Mass/Vol] 0.99 mg/dL Normal 0.70-1.30 [facility] Comment on above: Performed By: #### A MY, CMP, LIPA #### [facility] [address] [place] [address] Dr. Carrington Chandler EGFR-AF [place] >60 Normal >=60 [facility] Comment on above: Performed By: #### A MY, CMP, LIPA #### [facility] [address] [place] [address] Dr. Carrington Chandler EGFR-NON AF [place] >60 Normal >=60 [facility] Comment on above: Performed By: #### A MY, CMP, LIPA #### [facility] [address] [place] [address] Dr. Carrington Chandler Globulin (S) [Mass/Vol] 4.3 g/dL Normal [facility] Comment on above: Performed By: #### A MY, CMP, LIPA #### [facility] [address] [place] [address] Dr. Carrington Chandler Glucose [Mass/Vol] 107 mg/dL Critically high 74-106 [facility] Comment on above: Performed By: #### A MY, CMP, LIPA #### [facility] [address] [address] [address] Carrington Chandler Potassium [Moles/Vol] 4.1 mmol/L Normal 3.5-5.1 [facility] Comment on above: Performed By: #### A MY, CMP, LIPA #### [facility] [address] [place] [address] Dr. Carrington Chandler Protein [Mass/Vol] 7.7 g/dL Normal 6.4-8.2 [facility] Comment on above: Performed By: #### A MY, CMP, LIPA #### [facility] [address] [place] [address] Dr. Carrington Chandler Sodium [Moles/Vol] 137 mmol/L Normal 136-145 [facility] Comment on above: Performed By: #### A MY, CMP, LIPA #### [facility] [address] [place] [address] Dr. Carrington Chandler Urea nitrogen [Mass/Vol] 23.0 mg/dL Critically high 7.0-18.0 [facility] Comment on above: Performed By: #### A MY, CMP, LIPA #### [facility] [address] [place] [address] Dr. Carrington Chandler Urea nitrogen/Creatinine [Mass ratio] 23.2 mg/mg Normal [facility] Comment on above: Performed By: #### A MY, CMP, LIPA #### [facility] [address] [place] [address] Dr. Carrington Chandler CBC AUTO DIFFon 07-03-2022 BASO # 0.0 103/ul Normal 0.0-0.1 [facility] Comment on above: Performed By: #### C MP #### [facility] [address] [place] [address] Dr. Carrington Chandler Basophils/100 WBC (Bld) 0.5 % Normal 0.2-2.0 [facility] Comment on above: Performed By: #### C MP #### [facility] [address] [place] [address] Dr. Carrington Chandler EO # 0.3 103/ul Normal 0.0-0.7 [facility] Comment on above: Performed By: #### C MP #### [facility] [address] [place] [address] Dr. Carrington Chandler Eosinophils/100 WBC (Bld) 4.7 % Normal 0.9-7.0 [facility] Comment on above: Performed By: #### C MP #### [facility] [address] [place] [address] Dr. Carrington Chandler Erythrocyte distribution width (RBC) [Ratio] 12.7 % Normal 11.0-15.0 [facility] Comment on above: Performed By: #### C MP #### [facility] [address] [place] [address] Dr. Carrington Chandler Hematocrit (Bld) [Volume fraction] 38.8 % Critically low 42.0-54.0 [facility] Comment on above: Performed By: #### C MP #### [facility] [address] [place] [address] Dr. Carrington Chandler Hemoglobin (Bld) [Mass/Vol] 13.2 g/dL Critically low 14.0-18.0 [facility] Comment on above: Performed By: #### C MP #### [facility] [address] [place] [address] Dr. Carrington Chandler IG # 0.01 10e3/ul Normal 0.00-0.03 [facility] Comment on above: Performed By: #### C MP #### [facility] [address] [place] [address] Dr. Carrington Chandler IG % 0.2 % Normal 0.0-0.5 [facility] Comment on above: Performed By: #### C MP #### [facility] [address] [place] [address] Dr. Carrington Chandler LYMPH # 1.4 103/ul Normal 1.2-3.8 [facility] Comment on above: Performed By: #### C MP #### [facility] [address] [place] [address] Dr. Carrington Chandler Lymphocytes/100 WBC (Bld) 25.2 % Normal 20.5-60.0 [facility] Comment on above: Performed By: #### C MP #### [facility] [address] [place] [address] Dr. Carrington Chandler MANUAL DIFF REQ NO Normal [facility] Comment on above: Performed By: #### C MP #### [facility] [address] [place] [address] Dr. Carrington Chandler MCH (RBC) [Entitic mass] 30.3 pg Normal 25.9-34.0 [facility] Comment on above: Performed By: #### C MP #### [facility] [address] [place] [address] Dr. Carringotn Chandler MCHC (RBC) [Mass/Vol] 34.0 g/dL Normal 29.9-35.2 [facility] Comment on above: Performed By: #### C MP #### [facility] [address] [place] [address] Dr. Carrington Chandler MCV (RBC) [Entitic vol] 89.2 fL Normal 80.0-94.0 [facility] Comment on above: Performed By: #### C MP #### [facility] [facility] [address] [place] [address] Dr. Carrington Chandler MONO # 0.6 103/ul Normal 0.3-0.8 [facility] Comment on above: Performed By: #### C MP #### [facility] [address] [place] [address] Dr. Carrington Chandler Monocytes/100 WBC (Bld) 10.2 % Normal 1.7-12.0 [facility] Comment on above: Performed By: #### C MP #### [facility] [address] [place] [address] Dr. Carrington Chandler NEUT # 3.3 103/ul Normal 1.4-6.5 [facility] Comment on above: Performed By: #### C MP #### [facility] [address] [place] [address] Dr. Carrington Chandler Neutrophils/100 WBC (Bld) 59.2 % Normal 43.0-75.0 [facility] Comment on above: Performed By: #### C MP #### [facility] [address] [address] [address] Carrington Chandler Platelet mean volume (Bld) [Entitic vol] 9.1 fL Critically low 9.5-13.5 [facility] Comment on above: Performed By: #### C MP #### [facility] [address] [address] [address] Carrington Chandler PLT 199 103/ul Normal 150-450 [facility] Comment on above: Performed By: #### C MP #### [facility] [address] [address] [address] Carrington Chandler RBC 4.35 106/ul Critically low 4.70-6.10 [facility] Comment on above: Performed By: #### C MP #### [facility] [address] [address] [address] Carrington Chandler WBC 5.5 103/ul Normal 4.0-11.0 [facility] Comment on above: Performed By: #### C MP #### [facility] [address] [address] [address] Carrington Chandler Covid-19 PCR ([facility])on SARS-CoV-2 (COVID-19) RNA CHARLIE+probe Ql (Unsp spec) Not detected Normal NOT DETECTED [facility] Comment on above: Result Comment: When [...] for this test is supported by the [place] of Health and Human Service's declaration that [...] used). Performed By: #### B MP #### [facility] [address] [place] [address] Dr. Carrington Chandler PROF 14(COMP METB)on 022 Albumin [Mass/Vol] 3.8 g/dL Normal 3.4-5.0 [facility] Comment on above: Performed By: #### C MP #### [facility] [address] [place] [address] Dr. Carrington Chandler Albumin/Globulin [Mass ratio] 1.0 {ratio} Normal [facility] Comment on above: Performed By: #### C MP #### [facility] [address] [place] [address] Dr. Carrington Chandler ALP [Catalytic activity/Vol] 69 U/L Normal 46-116 [facility] Comment on above: Performed By: #### C MP #### [facility] [address] [place] [address] Dr. Carrington Chandler ALT [Catalytic activity/Vol] 18 U/L Normal 16-63 [facility] Comment on above: Performed By: #### C MP #### [facility] [address] [place] [address] Dr. Carrington Chandler Anion gap [Moles/Vol] 13.3 mmol/L Normal [facility] Comment on above: Performed By: #### C MP #### [facility] [address] [place] [address] Dr. Carrington Chandler AST [Catalytic activity/Vol] 19 U/L Normal 15-37 [facility] Comment on above: Performed By: #### C MP #### [facility] [address] [place] [address] Dr. Carrington Chandler Bilirubin [Mass/Vol] 0.3 mg/dL Normal 0.2-1.0 [facility] Comment on above: Performed By: #### C MP #### [facility] [address] [place] [address] Dr. Carrington Chandler Calcium [Mass/Vol] 9.0 mg/dL Normal 8.5-10.1 [facility] Comment on above: Performed By: #### C MP #### [facility] [address] [address] [address] Carrington Chandler Chloride [Moles/Vol] 101 mmol/L Normal 98-107 [facility] Comment on above: Performed By: #### C MP #### [facility] [address] [address] [address] Carrington Chandler CO2 [Moles/Vol] 26.7 mmol/L Normal 21.0-32.0 [facility] Comment on above: Performed By: #### C MP #### [facility] [address] [address] [address] Carrington Chandler Creatinine [Mass/Vol] 1.06 mg/dL Normal 0.70-1.30 [facility] Comment on above: Performed By: #### C MP #### [facility] [address] [address] [address] Carrington Chandler EGFR-AF CITIZ[place] >60 Normal >=60 [facility] Comment on above: Performed By: #### C MP #### [facility] [address] [address] [address] Carrington Chandler EGFR-NON AF CITIZEN OF [place] >60 Normal >=60 [facility] Comment on above: Performed By: #### C MP #### [facility] [address] [address] [address] Carrington Chandler Globulin (S) [Mass/Vol] 3.8 g/dL Normal [facility] Comment on above: Performed By: #### C MP #### [facility] [address] [address] [address] Carrington Chandler Glucose [Mass/Vol] 98 mg/dL Normal 74-106 [facility] Comment on above: Performed By: #### C MP #### [facility] [address] [address] [address] Carrington Chandler Potassium [Moles/Vol] 4.0 mmol/L Normal 3.5-5.1 [facility] Comment on above: Performed By: #### C MP #### [facility] [address] [address] [address] Carrington Chandler Protein [Mass/Vol] 7.6 g/dL Normal 6.4-8.2 [facility] Comment on above: Performed By: #### C MP #### [facility] [address] [address] [address] Carrington Chandler Sodium [Moles/Vol] 137 mmol/L Normal 136-145 [facility] Comment on above: Performed By: #### C MP #### [facility] [address] [address] [address] Carrington Chandler Urea nitrogen [Mass/Vol] 21.0 mg/dL Critically high 7.0-18.0 [facility] Comment on above: Performed By: #### C MP #### [facility] [address] [address] [address] Carrington Chandler Urea nitrogen/Creatinine [Mass ratio] 19.8 mg/mg Normal [facility] Comment on above: Performed By: #### C MP #### [facility] [address] [address] [address] Carrington Chandler XR CHEST 1 Von [...] CYNTHIA VASQUEZ Date: 2022-07-03 21:16 Normal [facility] CBC AUTO DIFFon 02-03-2022 BASO # 0.0 103/ul Normal 0.0-0.1 [facility] Comment on above: Performed By: #### C BC #### [facility] [address] [address] [address] Carrington Chandler Basophils/100 WBC (Bld) 0.3 % Normal 0.2-2.0 [facility] Comment on above: Performed By: #### C BC #### [facility] [address] [address] [address] Carrington Chandler EO # 0.1 103/ul Normal 0.0-0.7 [facility] Comment on above: Performed By: #### C BC #### [facility] [address] [address] [address] Carrington Chandler Eosinophils/100 WBC (Bld) 0.9 % Normal 0.9-7.0 [facility] Comment on above: Performed By: #### C BC #### [facility] [address] [place] [address] Dr. Carrington Chandler Erythrocyte distribution width (RBC) [Ratio] 13.9 % Normal 11.0-15.0 [facility] Comment on above: Performed By: #### C BC #### [facility] [address] [place] [address] Dr. Carrington Chandler Hematocrit (Bld) [Volume fraction] 40.4 % Critically low 42.0-54.0 [facility] Comment on above: Performed By: #### C BC #### [facility] [address] [place] [address] Dr. Carrington Chandler Hemoglobin (Bld) [Mass/Vol] 13.4 g/dL Critically low 14.0-18.0 [facility] Comment on above: Performed By: #### C BC #### [facility] [address] [place] [address] Dr. Carrington Chandler IG # 0.03 10e3/ul Normal 0.00-0.03 [facility] Comment on above: Performed By: #### C BC #### [facility] [address] [place] [address] Dr. Carrington Chandler IG % 0.3 % Normal 0.0-0.5 [facility] Comment on above: Performed By: #### C BC #### [facility] [address] [address] [address] Carrington Chandler LYMPH # 1.5 103/ul Normal 1.2-3.8 [facility] Comment on above: Performed By: #### C BC #### [facility] [address] [place] [address] Dr. Carrington Chandler Lymphocytes/100 WBC (Bld) 12.3 % Critically low 20.5-60.0 [facility] Comment on above: Performed By: #### C BC #### [facility] [address] [place] [address] Dr. Carrington Chandler MANUAL DIFF REQ NO Normal [facility] Comment on above: Performed By: #### C BC #### [facility] [address] [place] [address] Dr. Carrington Chandler MCH (RBC) [Entitic mass] 30.0 pg Normal 25.9-34.0 [facility] Comment on above: Performed By: #### C BC #### [facility] [address] [place] [address] Dr. Carrington Chandler MCHC (RBC) [Mass/Vol] 33.2 g/dL Normal 29.9-35.2 [facility] Comment on above: Performed By: #### C BC #### [facility] [address] [place] [address] Dr. Carrington Chandler MCV (RBC) [Entitic vol] 90.6 fL Normal 80.0-94.0 [facility] Comment on above: Performed By: #### C BC #### [facility] [address] [place] [address] Dr. Carrington Chandler MONO # 1.0 103/ul Critically high 0.3-0.8 [facility] Comment on above: Performed By: #### C BC #### [facility] [address] [place] [address] Dr. Carrington Chandler Monocytes/100 WBC (Bld) 8.5 % Normal 1.7-12.0 [facility] Comment on above: Performed By: #### C BC #### [facility] [address] [place] [address] Dr. Carrington Chandler NEUT # 9.2 103/ul Critically high 1.4-6.5 [facility] Comment on above: Performed By: #### C BC #### [facility] [address] [address] [address] Carrington Chandler Neutrophils/100 WBC (Bld) 77.7 % Critically high 43.0-75.0 [facility] Comment on above: Performed By: #### C BC #### [facility] [address] [place] [address] Dr. Carrington Chandler Platelet mean volume (Bld) [Entitic vol] 9.5 fL Normal 9.5-13.5 [facility] Comment on above: Performed By: #### C BC #### [facility] [address] [place] [address] Dr. Carrington Chandler PLT 204 103/ul Normal 150-450 [facility] Comment on above: Performed By: #### C BC #### [facility] [address] [place] [address] Dr. Carrington Chandler RBC 4.46 106/ul Critically low 4.70-6.10 [facility] Comment on above: Performed By: #### C BC #### [facility] [address] [place] [address] Dr. Carrington Chandler WBC 11.9 103/ul Critically high 4.0-11.0 [facility] Comment on above: Performed By: #### C BC #### [facility] [address] [place] [address] Dr. Carrington Chandler [facility] SARS-CoV-2 (COVID-19) RNA CHARLIE+probe Ql (Unsp spec) Not detected Normal NOT DETECTED [facility] Comment on above: Result Comment: When [...] for this test is supported by the [place] of Health and Human Service's declaration that [...] be used). Performed By: #### [facility] #### [facility] [address] [place] [address] Dr. Carrington Chandler PROF 14(COMP METB)on 022 Albumin [Mass/Vol] 3.7 g/dL Normal 3.4-5.0 [facility] Comment on above: Performed By: #### C MP #### [facility] [address] [place] [address] Dr. Carrington Chandler Albumin/Globulin [Mass ratio] 0.9 {ratio} Normal [facility] Comment on above: Performed By: #### C MP #### [facility] [address] [place] [address] Dr. Carrington Chandler ALP [Catalytic activity/Vol] 62 U/L Normal 46-116 [facility] Comment on above: Performed By: #### C MP #### [facility] [address] [place] [address] Dr. Carrington Chandler ALT [Catalytic activity/Vol] 21 U/L Normal 16-63 [facility] Comment on above: Performed By: #### C MP #### [facility] [address] [place] [address] Dr. Carrington Chandler Anion gap [Moles/Vol] 12.3 mmol/L Normal [facility] Comment on above: Performed By: #### C MP #### [facility] [address] [place] [address] Dr. Carrington Chandler AST [Catalytic activity/Vol] 13 U/L Critically low 15-37 [facility] Comment on above: Performed By: #### C MP #### [facility] [address] [address] [address] Carrington Chandler Bilirubin [Mass/Vol] 0.5 mg/dL Normal 0.2-1.0 [facility] Comment on above: Performed By: #### C MP #### [facility] [address] [address] [address] Carrington Chandler Calcium [Mass/Vol] 9.1 mg/dL Normal 8.5-10.1 [facility] Comment on above: Performed By: #### C MP #### [facility] [address] [address] [address] Carrington Chandler Chloride [Moles/Vol] 102 mmol/L Normal 98-107 [facility] Comment on above: Performed By: #### C MP #### [facility] [address] [address] [address] Carrington Chandler CO2 [Moles/Vol] 24.9 mmol/L Normal 21.0-32.0 [facility] Comment on above: Performed By: #### C MP #### [facility] [address] [address] [address] Carrington Chandler Creatinine [Mass/Vol] 1.36 mg/dL Critically high 0.70-1.30 [facility] Comment on above: Performed By: #### C MP #### [facility] [address] [address] [address] Carrington Chandler EGFR-AF [place]IZ[place] >60 Normal >=60 [facility] Comment on above: Performed By: #### C MP #### [facility] [address] [address] [address] Carrington Chandler EGFR-NON AF [place]IZ[place] OF [place] 53 mL/min/1.73m2 Critically low >=60 [facility] Comment on above: Performed By: #### C MP #### [facility] [address] [address] [address] Carrington Chandler Globulin (S) [Mass/Vol] 3.9 g/dL Normal [facility] Comment on above: Performed By: #### C MP #### [facility] [address] [address] [address] Carrington Chandler Glucose [Mass/Vol] 138 mg/dL Critically high 74-106 [facility] Comment on above: Performed By: #### C MP #### [facility] [address] [address] [address] Carrington Chandler Potassium [Moles/Vol] 4.2 mmol/L Normal 3.5-5.1 [facility] Comment on above: Performed By: #### C MP #### [facility] [address] [address] [address] Carrington Chandler Protein [Mass/Vol] 7.6 g/dL Normal 6.4-8.2 [facility] Comment on above: Performed By: #### C MP #### [facility] [address] [address] [address] Carrington Chandler Sodium [Moles/Vol] 135 mmol/L Critically low 136-145 [facility] Comment on above: Performed By: #### C MP #### [facility] [address] [address] [address] Carrington Chandler Urea nitrogen [Mass/Vol] 24.0 mg/dL Critically high 7.0-18.0 [facility] Comment on above: Performed By: #### C MP #### [facility] [address] [address] [address] Carrington Chandler Urea nitrogen/Creatinine [Mass ratio] 17.6 mg/mg Normal [facility] Comment on above: Performed By: #### C MP #### [facility] [address] [address] [address] Carrington Chandler XR CHEST 1 Von [...] MARX Date: 2022-02-03 02:09 Normal [facility] Vital Signs Date Time Vital Sign Value Performing Clinician Facility 05-29-2024 15:05-0500 Body height 170.18 cm [facility] 05-29-2024 15:05-0500 Body mass index (BMI) [Ratio] 37.4 kg/m2 [facility] 05-29-2024 15:05-0500 Body weight 108.4 kg [facility] 05-29-2024 15:05-0500 Diastolic blood pressure 69 mm[Hg] [facility] 05-29-2024 15:05-0500 Heart rate 93 /min [facility] 05-29-2024 15:05-0500 SaO2% (BldA) [Mass fraction] 93 % [facility] 05-29-2024 15:05-0500 Systolic blood pressure 124 mm[Hg] [facility] 05-11-2024 14:52-0400 Diastolic blood pressure 72 mm[Hg] [facility] 05-11-2024 14:52-0400 Heart rate 108 /min [facility] 05-11-2024 14:52-0400 SaO2% (BldA) [Mass fraction] 95 % [facility] 05-11-2024 14:52-0400 Systolic blood pressure 118 mm[Hg] [facility] 02-24-2024 14:00-0400 Body height 170.18 cm [facility] 02-24-2024 14:00-0400 Body mass index (BMI) [Ratio] 37.7 kg/m2 [facility] 02-24-2024 14:00-0400 Body weight 109.31 kg [facility] 02-24-2024 14:00-0400 Diastolic blood pressure 63 mm[Hg] [facility] 02-24-2024 14:00-0400 Heart rate 99 /min [facility] 02-24-2024 14:00-0400 Systolic blood pressure 99 mm[Hg] [facility] 01-05-2024 12:56-0400 Body height 170.18 cm [facility] 01-05-2024 12:56-0400 Body mass index (BMI) [Ratio] 38.2 kg/m2 [facility] 01-05-2024 12:56-0400 Body weight 110.78 kg [facility] 01-05-2024 12:56-0400 Diastolic blood pressure 66 mm[Hg] [facility] 01-05-2024 12:56-0400 Heart rate 66 /min [facility] 01-05-2024 12:56-0400 SaO2% (BldA) [Mass fraction] 91 % [facility] 01-05-2024 12:56-0400 Systolic blood pressure 108 mm[Hg] [facility] 12-13-2023 13:44-0400 Body height 171.45 cm [facility] 12-13-2023 13:44-0400 Body mass index (BMI) [Ratio] 37.5 kg/m2 [facility] 12-13-2023 13:44-0400 Body weight 110.22 kg [facility] 12-13-2023 13:44-0400 Diastolic blood pressure 60 mm[Hg] [facility] 12-13-2023 13:44-0400 Heart rate 87 /min [facility] 12-13-2023 13:44-0400 SaO2% (BldA) [Mass fraction] 97 % [facility] 12-13-2023 13:44-0400 Systolic blood pressure 102 mm[Hg] [facility] 11-25-2023 14:56-0400 Body height 2042.16 cm [facility] 11-25-2023 14:56-0400 Body mass index (BMI) [Ratio] 0.2 kg/m2 [facility] 11-25-2023 14:56-0400 Body weight 110.22 kg [facility] 11-25-2023 14:56-0400 Diastolic blood pressure 68 mm[Hg] [facility] 11-25-2023 14:56-0400 Heart rate 71 /min [facility] 11-25-2023 14:56-0400 SaO2% (BldA) [Mass fraction] 93 % [facility] 11-25-2023 14:56-0400 Systolic blood pressure 116 mm[Hg] [facility] 10-26-2023 14:31-0400 Body height 171.45 cm [facility] 10-26-2023 14:31-0400 Body mass index (BMI) [Ratio] 37 kg/m2 [facility] 10-26-2023 14:31-0400 Body weight 108.86 kg [facility] 10-26-2023 14:31-0400 Diastolic blood pressure 65 mm[Hg] [facility] 10-26-2023 14:31-0400 Heart rate 78 /min [facility] 10-26-2023 14:31-0400 SaO2% (BldA) [Mass fraction] 97 % [facility] 10-26-2023 14:31-0400 Systolic blood pressure 103 mm[Hg] [facility] 10-04-2023 15:13-0400 Body height 171.45 cm [facility] 10-04-2023 15:13-0400 Body mass index (BMI) [Ratio] 36.7 kg/m2 [facility] 10-04-2023 15:13-0400 Body weight 108.04 kg [facility] 10-04-2023 15:13-0400 Diastolic blood pressure 63 mm[Hg] [facility] 10-04-2023 15:13-0400 Heart rate 72 /min [facility] 10-04-2023 15:13-0400 SaO2% (BldA) [Mass fraction] 93 % [facility] 10-04-2023 15:13-0400 Systolic blood pressure 95 mm[Hg] [facility] 09-14-2023 09:13-0500 Body height 170.2 cm Alok Armijo DO Work Phone: [facility] 09-14-2023 09:13-0500 Body mass index (BMI) [Ratio] 36.81 kg/m2 Alok Armijo DO Work Phone: [facility] 09-14-2023 09:13-0500 Body weight 106.59 kg Alok Armijo DO Work Phone: [facility] 09-14-2023 09:13-0500 Diastolic blood pressure 70 mm[Hg] Alok Armijo DO Work Phone: [facility] 09-14-2023 09:13-0500 Heart rate 72 /min Alok Armijo DO Work Phone: [facility] 09-14-2023 09:13-0500 Systolic blood pressure 118 mm[Hg] Alok Armijo DO Work Phone: [facility] 08-06-2023 13:30-0500 Body height 171.45 cm Brock Modi Other [facility] 08-06-2023 13:30-0500 Body mass index (BMI) [Ratio] 35.95 kg/m2 Brock Modi Other [facility] [employer] Other 08-06-2023 13:30-0500 Body weight 105.69 kg Brock Modi Other [facility] [employer] Other 08-06-2023 13:30-0500 Body weight 105.68 kg [facility] 08-06-2023 13:30-0500 Diastolic blood pressure 66 mm[Hg] Brock Modi Other [facility] 08-06-2023 13:30-0500 SaO2% (BldA) [Mass fraction] 95 % Brock Modi Other [facility] [employer] Other 08-06-2023 13:30-0500 Systolic blood pressure 108 mm[Hg] Brock Modi Other [facility] 08-05-2023 14:23-0500 Diastolic blood pressure 76 mm[Hg] Christopher Sewell MD Work Phone: [employer] 08-05-2023 14:23-0500 Heart rate 70 /min Chirstopher Sewell MD Work Phone: [employer] 08-05-2023 14:23-0500 Systolic blood pressure 108 mm[Hg] Christopher Sewell MD Work Phone: [employer] 08-05-2023 14:22-0500 Body height 170.2 cm Christopher Sewell MD Work Phone: [employer] 08-05-2023 14:22-0500 Body mass index (BMI) [Ratio] 36.43 kg/m2 Christopher Sewell MD Work Phone: [employer] 08-05-2023 14:22-0500 Body weight 105.51 kg Christopher Sewell MD Work Phone: [employer] 08-05-2023 14:22-0500 Respiratory rate 18 /min Christopher Sewell MD Work Phone: [employer] 06-24-2023 11:00-0500 Body height 171.45 cm Brock Modi Other [employer] Other 06-24-2023 11:00-0500 Body mass index (BMI) [Ratio] 34.56 kg/m2 Brock Modi Other [employer] Other 06-24-2023 11:00-0500 Body temperature 98.1 [degF] Brock Modi Other [employer] Other 06-24-2023 11:00-0500 Body weight 101.61 kg Brock Modi Other [employer] Other 06-24-2023 11:00-0500 Diastolic blood pressure 67 mm[Hg] Brock Modi Other [employer] Other 06-24-2023 11:00-0500 SaO2% (BldA) [Mass fraction] 95 % Brock Modi Other [employer] Other 06-24-2023 11:00-0500 Systolic blood pressure 109 mm[Hg] Brock Modi Other [employer] Other 03-16-2023 11:30-0400 Body height 171.45 cm Brock Modi Other [employer] Other 03-16-2023 11:30-0400 Body mass index (BMI) [Ratio] 33.48 kg/m2 Brock Modi Other [employer] Other 03-16-2023 11:30-0400 Body weight 98.43 kg Brock Modi Other [employer] Other 03-16-2023 11:30-0400 Diastolic blood pressure 67 mm[Hg] Brock Modi Other [employer] Other 03-16-2023 11:30-0400 SaO2% (BldA) [Mass fraction] 93 % Brock Modi Other [employer] Other 03-16-2023 11:30-0400 Systolic blood pressure 114 mm[Hg] Brock Modi Other [employer] Other 02-04-2023 13:30-0400 Body height 171.45 cm Brock Modi Other [employer] Other 02-04-2023 13:30-0400 Body mass index (BMI) [Ratio] 33.64 kg/m2 Brock Modi Other [employer] Other 02-04-2023 13:30-0400 Body weight 98.88 kg Brock Modi Other [employer] Other 02-04-2023 13:30-0400 Diastolic blood pressure 67 mm[Hg] Brock Modi Other [employer] Other 02-04-2023 13:30-0400 SaO2% (BldA) [Mass fraction] 96 % Brock Modi Other [employer] Other 02-04-2023 13:30-0400 Systolic blood pressure 117 mm[Hg] Brock Modi Other [employer] Other 12-24-2022 14:08-0400 Body height 167.64 cm Brock Modi Work Phone: [employer] 250 DO Work Phone: 12-24-2022 14:08-0400 Body mass index (BMI) [Ratio] 35.02 kg/m2 Brock Modi Work Phone: [employer] 250 DO Work Phone: 12-24-2022 14:08-0400 Body surface area Derived from formula 2.07 m2 Brock Modi Work Phone: [employer] 250 DO Work Phone: 12-24-2022 14:08-0400 Body weight 98.43 kg Brock Modi Work Phone: [employer] 250 DO Work Phone: 12-24-2022 14:08-0400 Diastolic blood pressure 80 mm[Hg] Brock Modi Work Phone: [employer] 250 DO Work Phone: 12-24-2022 14:08-0400 Heart rate 115 /min Brock Modi Work Phone: [facility] [employer] 250 DO Work Phone: 12-24-2022 14:08-0400 Systolic blood pressure 124 mm[Hg] Brock Modi Work Phone: [facility] [employer] 250 DO Work Phone: 11-27-2022 11:00-0400 Body height 171.45 cm Wagner Marrufo Other [employer] Other 11-27-2022 11:00-0400 Body mass index (BMI) [Ratio] 33.48 kg/m2 Wagner Fernandezley Other [employer] Other 11-27-2022 11:00-0400 Body weight 98.43 kg Wagner Fernandezley Other [employer] Other 11-12-2022 12:45-0400 Body height 171.45 cm Brock Modi Other [employer] Other 11-12-2022 12:45-0400 Body mass index (BMI) [Ratio] 33.48 kg/m2 Brock Modi Other [employer] Other 11-12-2022 12:45-0400 Body weight 98.43 kg Brock Modi Other [employer] Other 11-12-2022 12:45-0400 Diastolic blood pressure 78 mm[Hg] Brock Modi Other [employer] Other 11-12-2022 12:45-0400 SaO2% (BldA) [Mass fraction] 92 % Brock Modi Other [employer] Other 11-12-2022 12:45-0400 Systolic blood pressure 122 mm[Hg] Brock Modi Other [employer] Other 10-21-2022 15:18-0400 Body height 167.64 cm Brock Modi Work Phone: [facility] [place] 250 DO Work Phone: 10-21-2022 15:18-0400 Body mass index (BMI) [Ratio] 35.51 kg/m2 Brock Modi Work Phone: [facility] 250 DO Work Phone: 10-21-2022 15:18-0400 Body surface area Derived from formula 2.08 m2 Brock Modi Work Phone: [facility] 250 DO Work Phone: 10-21-2022 15:18-0400 Body weight 99.79 kg Brock Modi Work Phone: [facility] 250 DO Work Phone: 10-21-2022 15:18-0400 Diastolic blood pressure 70 mm[Hg] Brock Modi Work Phone: [facility] 250 DO Work Phone: 10-21-2022 15:18-0400 Heart rate 84 /min Brock Modi Work Phone: [facility] 250 DO Work Phone: 10-21-2022 15:18-0400 Systolic blood pressure 126 mm[Hg] Brock Modi Work Phone: [facility] 250 DO Work Phone: 10-15-2022 11:15-0400 Body height 171.45 cm Brock Modi Other [employer] Other 10-15-2022 11:15-0400 Body mass index (BMI) [Ratio] 33.33 kg/m2 Brock Modi Other [employer] Other 10-15-2022 11:15-0400 Body weight 97.98 kg Brock Modi Other [employer] Other 10-15-2022 11:15-0400 Diastolic blood pressure 84 mm[Hg] Brock Modi Other [employer] Other 10-15-2022 11:15-0400 SaO2% (BldA) [Mass fraction] 94 % Brock Modi Other [employer] Other 10-15-2022 11:15-0400 Systolic blood pressure 122 mm[Hg] Brock Modi Other [facility] [employer] Other 10-13-2022 11:57-0400 Body temperature 97.4 [degF] MD Brock Modi Work Phone: [facility] 10-13-2022 11:57-0400 Diastolic blood pressure 85 mm[Hg] MD Brock Modi Work Phone: [facility] 10-13-2022 11:57-0400 Heart rate 107 /min MD Brock Modi Work Phone: [facility] 10-13-2022 11:57-0400 Inhaled oxygen flow rate 2 L/min MD Brock Modi Work Phone: [facility] 10-13-2022 11:57-0400 Respiratory rate 17 /min MD Brock Modi Work Phone: [facility] 10-13-2022 11:57-0400 SaO2% (BldA) [Mass fraction] 97 % MD Brock Modi Work Phone: [facility] 10-13-2022 11:57-0400 Systolic blood pressure 125 mm[Hg] MD Brock Modi Work Phone: [facility] 10-13-2022 04:32-0400 Body weight 97.52 kg MD Brock Modi Work Phone: [facility] 10-10-2022 08:46-0400 65 1 Brock Modi Work Phone: [facility] 250 DO Work Phone: Comment on above: [id number] 10-10-2022 04:57-0400 Body height 170.18 cm MD Brock Modi Work Phone: [facility] 09-09-2022 14:30-0500 Body height 171.45 cm Wagner Marrufo Other [facility] [employer] Other 09-09-2022 14:30-0500 Body mass index (BMI) [Ratio] 34.41 kg/m2 Wagner Mrarufo Other [facility] [employer] Other 09-09-2022 14:30-0500 Body weight 101.15 kg Wagner Marrufo Other [facility] [employer] Other 08-13-2022 12:15-0500 Body height 171.45 cm Brock Modi Other [facility] [employer] Other 08-13-2022 12:15-0500 Body mass index (BMI) [Ratio] 34.38 kg/m2 Brock Modi Other [facility] [employer] Other 08-13-2022 12:15-0500 Body weight 101.06 kg Brock Modi Other [facility] [employer] Other 08-13-2022 12:15-0500 Diastolic blood pressure 84 mm[Hg] Brock Modi Other [facility] [employer] Other 08-13-2022 12:15-0500 SaO2% (BldA) [Mass fraction] 97 % Brock Modi Other [employer] Other 08-13-2022 12:15-0500 Systolic blood pressure 132 mm[Hg] Brock Modi Other [employer] Other 07-30-2022 12:30-0500 Body height 171.45 cm Brock Modi Other [employer] Other 07-30-2022 12:30-0500 Body mass index (BMI) [Ratio] 32.71 kg/m2 Brock Modi Other [employer] Other 07-30-2022 12:30-0500 Body weight 96.16 kg Brock Modi Other [employer] Other 07-30-2022 12:30-0500 Diastolic blood pressure 80 mm[Hg] Brock Modi Other [employer] Other 07-30-2022 12:30-0500 SaO2% (BldA) [Mass fraction] 97 % Brock Modi Other [employer] Other 07-30-2022 12:30-0500 Systolic blood pressure 122 mm[Hg] Brock Modi Other [employer] Other Encounters Encounter Date Encounter Type Care Provider Facility Start: 05-29-2024 End: 05-29-2024 ambulatory [facility] Work Phone: Start: 05-29-2024 End: 05-29-2024 Patient encounter procedure [facility] Physician [facility] Work Phone: Start: 05-26-2024 Non-patient / Non-visit [facility] Physician [facility] Work Phone: Start: 05-11-2024 Non-patient / Non-visit [facility] Physician [facility] Work Phone: Start: 05-08-2024 Non-patient / Non-visit [facility] Physician [facility] Work Phone: Start: 05-07-2024 Non-patient / Non-visit [facility] Work Phone: Start: 03-03-2024 End: 03-03-2024 [facility] Start: 02-24-2024 End: 02-24-2024 ambulatory [facility] Work Phone: Start: 02-24-2024 End: 02-24-2024 Patient encounter procedure [facility] Work Phone: Start: 01-05-2024 End: 01-05-2024 ambulatory [facility] Work Phone: Start: 01-05-2024 End: 01-05-2024 Patient encounter procedure [facility] Physician [facility] Work Phone: Start: 12-13-2023 End: 12-13-2023 ambulatory [facility] Work Phone: Start: 12-13-2023 End: 12-13-2023 Patient encounter procedure [facility] Physician [facility] Work Phone: Start: 11-25-2023 End: 11-25-2023 Patient encounter procedure [facility] Physician [facility] Work Phone: Start: 10-26-2023 End: 10-26-2023 ambulatory [facility] Work Phone: Start: 10-26-2023 End: 10-26-2023 Patient encounter procedure [facility] Work Phone: Start: 10-09-2023 Non-patient / Non-visit [facility] Work Phone: Start: 10-04-2023 End: 10-04-2023 Patient encounter procedure [facility] Physician [facility] Work Phone: Start: 10-04-2023 Non-patient / Non-visit [facility] Work Phone: Start: 10-04-2023 End: 10-04-2023 ambulatory CHRISTOPHER SEWELL [facility] Start: 09-14-2023 End: 09-14-2023 ambulatory [facility] Ambulatory Start: 09-14-2023 End: 09-14-2023 Office outpatient visit 15 minutes [facility] DO Work Phone: [facility] Comment on above: Atherosclerosis of n ative coronary artery of [place] heart without angina pectoris; Essential hypertension, benign; Mixed hyperlipidemia; Ischemic cardiomyopathy; Past myocardial infarction; Moderate chronic obstructive pulmonary disease (CMS/HCC); Obesity (BMI 35.0-39.9 without comorbidity); Current smoker Start: 09-03-2023 End: 09-03-2023 ambulatory Brock Modi Other [employer] Other Start: 09-03-2023 Telephone encounter Brock Modi [facility] Start: 08-24-2023 Orders Only Kendal Carmen [employer] TECHN[employer] [facility] Comment on above: Abdominal aortic ane urysm (AAA) without rupture, unspecified part (CMS-HCC) (Primary Dx); Obstructive chronic bronchitis with exacerbation (CMS-HCC); Obesity with body mass index (BMI) of 30.0 to 39.9 Start: 08-06-2023 End: 08-06-2023 ambulatory Brock Modi Other [employer] Other Start: 08-06-2023 Office outpatient vi sit 15 minutes Brock Modi [facility] Start: 08-06-2023 End: 08-06-2023 Patient encounter procedure [facility] Physician [facility] Work Phone: Start: 08-05-2023 End: 08-05-2023 ambulatory CHRISTOPHER SEWELL [employer] Other Start: 08-05-2023 Telephone encounter Brock Modi [facility] Start: 08-05-2023 End: 08-05-2023 Office outpatient visit 15 minutes Christopher Sewell MD Work Phone: [facility] Comment on above: Abdominal aortic ane urysm (AAA) without rupture, unspecified part ([facility]) (Primary Dx); Obstructive chronic bronchitis with exacerbation ([facility]); Obesity with body mass index (BMI) of 30.0 to 39.9; Chronic obstructive pulmonary disease, unspecified COPD type ([facility]) Start: 07-16-2023 End: 07-16-2023 ambulatory Brock Modi Other [employer] Other Start: 07-16-2023 Telephone encounter Brock Modi [facility] Start: 06-24-2023 End: 06-24-2023 ambulatory Brock Modi Other [employer] Other Start: 06-24-2023 Office outpatient vi sit 15 minutes Brock Modi [facility] Start: 04-07-[address] Alok chauhan Akbar Facility: Start: 04-02-2023 End: 04-02-2023 ambulatory Brock Modi Other [employer] Other Start: 04-02-2023 Telephone encounter Brock Modi [facility] Start: 03-19-2023 End: 03-19-2023 ambulatory Brock Modi Other [employer] Other Start: 03-19-2023 Telephone encounter Brock Modi [facility] Start: 03-16-2023 End: 03-16-2023 ambulatory Brock Modi Other [employer] Other Start: 03-16-2023 Office outpatient vi sit 15 minutes Brock Modi [facility] Start: 02-04-2023 End: 02-04-2023 ambulatory Brock Modi Other [employer] Other Start: 02-04-2023 Office outpatient vi sit 15 minutes Brock Modi [facility] Start: 01-29-2023 End: 01-29-2023 ambulatory Viral Yang Other [employer] Other Start: 01-29-2023 Telephone encounter Viral Yang [facility] Start: 01-27-2023 Rx Renewal Brock Modi Work Phone: [facility] 250 DO Work Phone: Start: 01-19-2023 Patient encounter procedure Brock Modi Work Phone: [facility] [address] [place] Work Phone: Start: 01-14-2023 End: 01-14-2023 ambulatory Brock Modi Other [employer] Other Start: 01-14-2023 Telephone encounter Brock Modi [facility] Start: 12-24-2022 Office outpatient vi sit 40 minutes Brock Modi Work Phone: [facility] 250 DO Work Phone: Start: 12-24-[address] Alok Armijo Facility: Start: 12-04-2022 End: 12-04-2022 ambulatory Brock Modi Other [employer] Other Start: 12-04-2022 Telephone encounter Brock Modi [facility] Start: 12-03-2022 End: 12-03-2022 ambulatory Brock Modi Other [employer] Other Start: 12-03-2022 Telephone encounter Brock Modi [facility] Start: 11-27-2022 End: 11-27-2022 ambulatory Wagner Marrufo Other [employer] Other Start: 11-27-2022 Office outpatient vi sit 25 minutes Wagner Marrufo [facility] Start: 11-12-2022 End: 11-12-2022 ambulatory Brock Modi Other [facility] [employer] Other Start: 11-12-2022 Office outpatient vi sit 15 minutes Brock Moid [facility] Start: 11-04-2022 ambulatory JANINE BOYKINLARON Facili ty:H1 Start: 11-03-2022 End: 11-03-2022 Patient encounter procedure MD Brock Modi Work Phone: [facility] [place] Work Phone: Start: 11-03-2022 End: 11-03-2022 ambulatory MD Brock Modi Work Phone: [facility] Work Phone: Start: 11-02-2022 Patient encounter procedure Brock Modi Work Phone: [facility] 250 DO Work Phone: Start: 11-02-2022 ambulatory Janine Cunha Facility:1 [id number] Start: 10-29-2022 Chart Update Brock Modi Work Phone: [facility] 600 DO Work Phone: Start: 10-28-2022 End: 10-28-2022 ambulatory MD Brock Modi Work Phone: [facility] Work Phone: Start: 10-28-2022 End: 10-28-2022 Patient encounter procedure MD Brock Modi Work Phone: [facility] [place] Work Phone: Start: 10-27-2022 End: 10-27-2022 ambulatory Brock Modi Other [facility] [employer] Other Start: 10-27-2022 Telephone encounter Brock Modi [facility] Start: 10-21-2022 Transitional care juan diego neri srvc 14 day discharge Brock Modi Work Phone: [facility] 250 DO Work Phone: Start: 10-21-2022 End: 10-21-2022 ambulatory Janine Cunha [employer] Other Start: 10-21-2022 Telephone encounter Adi Campos [employer] Start: 10-20-2022 End: 10-20-2022 ambulatory Adi Campos Other [facility] [employer] Other Start: 10-20-2022 Office outpatient ne w 45 minutes Adi Campos [facility] Start: 10-15-2022 End: 10-15-2022 ambulatory Brock Modi Other [employer] Other Start: 10-15-2022 Office outpatient vi sit 15 minutes Brock Modi [facility] Start: 10-10-[address] Brock Modi Facility:[id number] Start: 10-10-2022 End: 10-13-2022 Evaluation and management of inpatient MD Brock Modi Work Phone: [facility] [employer] Work Phone: Start: 10-10-2022 End: 10-10-2022 ambulatory COLIN TREADWELL Facility:H1 Start: 09-09-2022 Office outpatient ne w 45 minutes Wagner Marrufo [facility] Start: 09-09-2022 End: 09-09-2022 ambulatory DO Wagner Marrufo Work Phone: [facility] Work Phone: Start: 09-09-2022 End: 09-09-2022 Patient encounter procedure DO Wagner Marrufo Work Phone: [facility] [place] [facility] Start: 09-07-2022 End: 09-08-2022 ambulatory COLIN TREADWELL Facility:H1 Start: 08-13-2022 End: 08-13-2022 ambulatory Brock Modi Other [employer] Other Start: 08-13-2022 Office outpatient vi sit 15 minutes Brock Modi [facility] Start: 08-10-2022 End: 08-11-[address] BROCK MODI Facility:H1 Start: 07-30-2022 End: 07-30-2022 ambulatory Brock Modi Other [employer] Other Start: 07-30-2022 Office outpatient vi sit 25 minutes Brock Modi [facility] Start: 07-28-2022 End: 07-28-2022 ambulatory Brock Modi Other [employer] Other Start: 07-28-2022 Telephone encounter Brock Modi [facility] Start: 07-10-2022 End: 07-11-[address] CAR LIGHT Facility:H1 Start: 07-08-2022 End: 07-08-[address] JANELLE LAL . Facility:H1 Start: 07-05-2022 End: 07-05-[address] RUBÉN DALY Facility:H1 Start: 07-03-2022 End: 07-04-[address] ARLIN CUNHA Facility:H1 Start: 02-03-2022 End: 02-03-[address] ARLIN CUNHA Facility:H1 Patient encounter status Brock Modi Work Phone: [facility] 250 DO Work Phone: Procedures Date Procedure [...] 64 Years) (3 - PPSV23 or PCV20) [facility] Start: 09-20-2024 End: 09-20-2024 Patient encounter procedure 09/20/2024 9:00 AM EST Office Visit [facility] [address] [facility] [address] [place] [id number] Alok Armijo DO [address] [facility] [address] [place] [address] [facility] Start: 08-05-2024 Adult BMI Screening Adult BMI Screen ing [facility] Start: 08-05-2024 Tobacco Screening Tobacco Screening [facility] Start: 02-17-2024 End: 02-17-2024 Patient encounter procedure 02/17/2024 10:10 AM EDT [facility] [address] [place] [address] Rom Pierre MD [address], [facility] [address] [place] [address] [facility] Start: 09-05-2023 Tobacco Counseling Tobacco Counselbernadine titus [facility] Start: 08-24-2023 End: 08-24-2024 CTA Abdominal vessels and Pelvis vessels W contrast IV CT angiogram abdomen and pelvis Imaging Routine Abdominal Aortic Aneurysm (Aaa) Without Rupture, Unspecified Part (Cms-Hcc) Obstructive chronic bronchitis with exacerbation (CMS-HCC) Obesity with body mass index (BMI) of 30.0 to 39.9 Expected: 08/24/2023, Expires: 08/24/2024 [employer] Work Phone: Comment on above: Expected: 08/24/2023 [...] COPD type (CMS-HCC) Expected: 08/22/2023, Expires: 08/22/2024 [employer] Work Phone: Comment on above: Expected: 08/22/2023 , Expires: 08/22/2024 Start: 04-07-2023 FUV, Provider: Alok Armijo, Status: Pen, Time: 11:20 AM FUV, Provider: Alok Armijo, Status: Pen, Time: 11:[address] [facility] 250 DO Work Phone: Start: 03-26-2023 Influenza vaccination [facility] Start: 01-19-2023 FUV, Provider: Alok Armijo, Status: Pen, Time: 2:30 PM FUV, Provider: Alok Armijo, Status: Pen, Time: 2:[address] [facility] 250 DO Work Phone: Start: 11-02-2022 HOLTER 48, Provider: VERONICA LANGLEY COLLECTION ADVISOR 1,[id number], Status: Pen, Time: 2:30 PM HOLTER 48, Provider: VERONICA LANGLEY COLLECTION ADVISOR 1,[id number], Status: Pen, Time: 2:[address] [facility] 250 DO Work Phone: Start: 10-13-2022 [facility] Start: 10-10-2022 Dilation of Coronary Artery, Two Arteries with Three Drug-eluting Intraluminal Devices, Percutaneous Approach Dilation of Coronary Artery, Two Arteries with Three Drug-eluting Intraluminal Devices, Percutaneous Approach [facility] Start: 10-10-2022 Fluoroscopy of Left Heart using Low Osmolar Contrast Fluoroscopy of Left Heart using Low Osmolar Contrast [facility] Start: 10-10-2022 Fluoroscopy of Multi ple Coronary Arteries using Low Osmolar Contrast Fluoroscopy of Multiple Coronary Arteries using Low Osmolar Contrast [facility] Start: 10-10-2022 Measurement of Cardi ac Sampling and Pressure, Left Heart, Percutaneous Approach Measurement of Cardiac Sampling and Pressure, Left Heart, Percutaneous Approach [facility] Start: 10-10-2022 Hospital admission [facility] Start: 10-10-2022 [facility] Start: 10-10-2022 Hospital admission [facility] Start: 10-10-2022 [facility] Start: 2010 Administration of varicella zoster vaccine Zoster (Shingles) Vaccine (1 of 2) [facility] Start: 2010 Zoster Vaccines (1 of 2) Zoste r Vaccines (1 of 2) [facility] Start: 1982 DTaP/Tdap/Td Vaccine s (1 - Tdap) DTaP/Tdap/Td Vaccines (1 - Tdap) [facility] Start: 1979 DTaP,Tdap and Td Vac cines (1 - Tdap) DTaP,Tdap and Td Vaccines (1 - Tdap) [facility] Start: 1978 Adult BMI Follow Up Plan Adult BMI Follow Up Plan [facility] Start: 1978 Diabetes mellitus screening Diabetes Screening [facility] Start: 1978 Hepatitis C screening Hepatitis C Sc malia [facility] Start: 1972 Depression Screening Depression Scre devin [facility] Start: 1961 MMR Vaccines (1 of 1 - Standard series) MMR Vaccines (1 of 1 - Standard series) [facility] Start: 1960 COVID-19 Vaccine (#1) COVID-19 Vacci ne (#1) [facility] Start: 1960 HIV screening HIV Screening [facility] Start: 1960 Lipid panel Lipid Panel [facility] Start: 1960 Screening for malign ant neoplasm of colon [facility] Start: 1960 Yearly Adult Physical Yearly Adult P hysical [facility] End: 08-22-2024 Creatinine includes GFR, serum Creatinine includes GFR, serum Lab Routine Abdominal Aortic Aneurysm (Aaa) Without Rupture, Unspecified Part ([facility]) Obstructive chronic bronchitis with exacerbation ([facility]) Obesity with body mass index (BMI) of 30.0 to 39.9 Chronic obstructive pulmonary disease, unspecified COPD type ([facility]-HCC) 1 Occurrences starting 08/22/2023 until 08/22/2024 [employer] Comment on above: 1 Occurrences starti ng 08/22/2023 until 08/22/2024 End: 08-24-2024 Creatinine includes GFR, serum Creatinine includes GFR, serum Lab Routine Abdominal Aortic Aneurysm (Aaa) Without Rupture, Unspecified Part ([facility]) Obstructive chronic bronchitis with exacerbation ([facility]) Obesity with body mass index (BMI) of 30.0 to 39.9 1 Occurrences starting 08/24/2023 until 08/24/2024 [employer] Work Phone: Comment on above: 1 Occurrences starti ng 08/24/2023 until 08/24/2024 Patient Education Coronary Angio plasty (DC) Coronary Stenting (DC) Angina (DC) Chest Pain (DC) Drug Eluting Stents [facility] Work Phone: Patient referral [facility] Work Phone: US Lower extremity v ein - right [facility] Immunizations Immunization Date Immunization Notes Care Provider Fa cility 05-02-2018 pneumococcal Conjuga te, unspecified formulation; Translations: [Need for prophylactic vaccination against Streptococcus pneumoniae (pneumococcus)] Brock Modi Other [employer] Other 05-02-2018 pneumococcal polysaccharide vaccine, 23 valent Brock Modi Work Phone: [facility] 05-26-2017 pneumococcal conjuga te vaccine, 13 errol Brock Urbano Ly Work Phone: [facility] Payers Date Payer Category Payer Medicaid [facility] RAD[facility] TAS MEDICAID [facility] MATILDE MEDICAID [id number] 2022-Present [address] [place] [address] [id number] 2022 Medicaid [id number] [id number] 2022 Self-pay 2019 Unknown 1960 Unknown [id number] 2.16.840.1.212248.3.579.2.593 1960 Unknown [id number] 2.16.840.1.525619.3.579.2.593 1960 Unknown [id number] 2.16.840.1.067357.3.579.2.593 1960 Unknown [id number] 2.16.840.1.705360.3.579.2.593 1960 Unknown [id number] 2.16.840.1.983455.3.579.2.593 1960 Unknown [id number] 2.16.840.1.140483.3.579.2.593 1960 Unknown [id number] 2.16.840.1.117391.3.579.2.593 1960 Unknown [id number] 2.16.840.1.368572.3.579.2.593 1960 Unknown [id number] 2.16.840.1.094664.3.579.2.593 1960 Unknown [id number] 2.16.840.1.017417.3.579.2.356 1960 Unknown [id number] 2.16.840.1.594963.3.579.2.356 1960 Unknown [id number] 2.16.840.1.685243.3.579.2.356 1960 Unknown [id number] 2.16.840.1.845316.3.579.2.356 1960 Unknown [id number] 2.16.840.1.813975.3.579.2.356 1960 Unknown [id number] 2.16.840.1.100420.3.579.2.1286 1960 Unknown [id number] 2.16.840.1.527086.3.579.2.1244 1960 Unknown [id number] 2.16.840.1.466397.3.579.2.1286 1960 Unknown [id number] 2.16.840.1.179127.3.579.2.1286 1959 Unknown [id number] 2.16.840.1.649982.19 Unknown [id number] 2.16.840.1.018611.3.579.2.531 Social History Date Type Detail Facility Tobacco smoking stat [facility] Unknown if ever smoked [facility] Work Phone: Start: 1960 Sex Assigned At Male F [facility] Start: 08-05-2023 End: 08-06-2023 Sex Assigned At Blue [facility] [employer] Other Start: 10-10-2022 End: 10-10-2022 Tobacco smoking status NHIS Smoker (finding) [facility] Start: 08-26-2022 End: 08-06-2023 Daily caffeine consumption Daily caffeine consumption -[facility] 250 DO Work Phone: Comment on above: 1/2 gallon coffee da darrion; 5-6 cig daily; 8 cigs daily; Start: 08-26-2022 End: 09-14-2023 Tobacco smoking status WYIS Smokes tobacco daily [facility] [employer] Start: 01-14-1992 History of tobacco use Cigarette Smo ker [facility] Start: 08-26-2022 Tobacco use and exposure Smokeless tobacco [facility] Start: 08-05-2023 End: 09-14-2023 Alcohol intake Lifetime [facility]drinker (finding) [facility] Within the past 12 months we worried whether our food would run out before we got money to buy more. Never True [employer] Start: 08-26-2022 Tobacco Comment pack and a nathanael f a day pt reports he is really trying to quit 09/04/21 [employer] Start: 1960 Sex Assigned At Not on file P [facility] Start: 09-04-2023 End: 09-14-2023 Exposure to SARS-CoV-2 (event) Not sure [facility] Medical Equipment Procedure Code Equipment Code Equipment Origin al Text Equipment Identifier Dates Drug-eluting coronary artery stent, eaf-sftynwgzvqggl-zk lymer-coated ()[id number] FDA Start: 10-10-2022 Drug-eluting coronary artery stent, cwy-gnwuctbpcpjng-xm lymer-coated ()[id number] [id number] FDA Start: 10-10-2022 Drug-eluting coronary artery stent, hff-flowtaxmptawi-se lymer-coated ()[id number] [id number] FDA Start: 10-10-2022 Goals Date Patient Goal Desired Activity /State Functional Status Date Assessment Result Facility 10-13-2022 Functional status Patient at Baseline [facility] Work Phone: Mental Status Date Assessment Result Facility 10-13-2022 Cognitive function Cognitive Sta tus Patient at Baseline [facility] Work Phone: Clinical Notes 07-30-2022 to [...] Disp: , Rfl: Assessment/Plan 1. Atherosclerosis of [place] coronary artery of [place] heart without angina pectoris 2. Essential hypertension, [...] discussion and plan. documented in this encounter [facility] Work Phone: 09-14-2023 [...] instructions on exercise. documented in this encounter [facility] Work Phone: 08-06-2023 [...] 6 months with imaging at that time. [employer] Other 01-11-2024 History of Present illness Narrative* [...] aortic aneurysm (AAA) without rupture, unspecified part ([facility]) - [facility] [place], [place] - CT angiogram abdomen and pelvis; Future - Creatinine includes GFR, serum; Future Obstructive chronic bronchitis with exacerbation ([facility]) - CT angiogram abdomen and pelvis; Future - Creatinine includes GFR, serum; Future Obesity with body mass index (BMI) of 30.0 to 39.[address] - [address] angiogram abdomen and pelvis; Future - Creatinine includes GFR, serum; Future Chronic obstructive pulmonary disease, unspecified COPD type ([facility]) - CT angiogram abdomen and pelvis; Future - Creatinine includes GFR, serum; Future Patient with infrarenal abdominal aortic aneurysm. His most recent duplex ultrasound shows 5.2 cm and that was in June of 2023. At this point I will see him back in 6 months with a follow-up CT angiogram. documented in [facility] Odd [id number] Evaluation note* Encounter Date Diagnosis Assessment Notes Treatment Notes Treatment Clinical Notes Jun, Abdominal aortic aneurysm (AAA) without rupture, unspecified part (ICD-10 - I71.40) [employer] Other 11-30-2023 Evaluation note* Encounter Date Diagnosis Assessment Notes Treatment Notes Treatment Clinical Notes May, Abdominal aortic aneurysm (AAA) without rupture, unspecified part (ICD-10 - I71.40) Pt requests order as he is overdue for recheckUS. May, Bronchitis (ICD-10 - J40) Finish meds and treatment plan ordered by ER recently. Pt understands as he is improving. [employer] Other 08-25-2023 Evaluation note* Encounter Date Diagnosis Assessment Notes Treatment Notes Treatment Clinical Notes Feb, Acute cystitis without hematuria (ICD-10 - N30.00) [employer] Other 08-22-2023 Evaluation note* Encounter Date Diagnosis Assessment Notes Treatment Notes Treatment Clinical Notes Feb, Penile discharge (ICD-10 - R36.9) Pt request STI testing Feb, Dysuria (ICD-10 - R30.0) Rule out UTI based on symptoms. Will call w results. Push fluids. Feb, Chronic obstructive pulmonary disease, unspecified (ICD-10 - J44.9) Clinical diagnosis secondary to 70-rvdv-cndb history of tobacco abuse. He will need PFTs in the future. Discussed missed appts w Dr. Campos and sleep lab. He states he will not followup there as he doesn't want to do a lung biopsy. His resp symptoms are improved overall. He expresses understanding on the severity of his condition and he chooses not to followup. [employer] Other 07-13-2023 Evaluation note* Encounter Date Diagnosis Assessment Notes Treatment Notes Treatment Clinical Notes Jan, COPD, moderate (ICD-10 - J44.9) Reminded him to keep appt w Dr. Campos on 02/10. Continue home medications. Avoid going outside with there is haze. Jan, Other sleep disorders (ICD-10 - G47.8) Gave number for the [facility] Sleep lab. He missed his last appt as his daughter had COVID. He will call to reschedule. [employer] Other 07-07-2023 Evaluation note* Encounter Date Diagnosis Assessment Notes Treatment Notes Treatment Clinical Notes Jan, Situational anxiety (ICD-10 - F41.8) [employer] Other 05-11-2023 Evaluation note* Encounter Date Diagnosis Assessment Notes Treatment Notes Treatment Clinical Notes November, Situational anxiety (ICD-10 - F41.8) [employer] Other 05-05-2023 Evaluation note* Encounter Date Diagnosis [...] any surgical interventions. Tobacco cessation program at [facility] has been recommended and offered as well as the national Quitline 0-136-FODI-NOW. We have discussed pharmacologic treatment including nicotine replacement therapy which can lead to a positive nicotine test as well as nicotine free medications both of which will need to be managed by their PCP. We have provided handout for the [facility] Tobacco Cessation Program. This discussion was limited to 5 minutes. [employer] Other 04-20-2023 Evaluation note* Encounter Date Diagnosis Assessment Notes Treatment Notes Treatment Clinical Notes Oct, Chronic obstructive pulmonary disease, unspecified COPD type (ICD-10 - J44.9) Will resume inhalers as prescribed. Keep appt w Dr. Campos. Notes frequent dyspnea, agrees to a prednisone course. Oct, INOCENTE (obstructive sleep apnea) (ICD-10 - G47.33) I called [facility]. He has to meet with the sleep specialist before the test is done, even though it was already ordered. I gave him the date of the appt. I also ordered the test. Oct, Coronary artery disease involving [place] heart without angina pectoris, unspecified vessel or lesion type (ICD-10 - I25.10) Continued followup w [facility]. Continue time off work until breathing status is improved. [employer] Other 03-28-2023 Evaluation note* Encounter Date Diagnosis Assessment Notes Treatment Notes Treatment Clinical Notes Sep, Chronic obstructive pulmonary disease, unspecified COPD type (ICD-10 - J44.9) Trelegy samples and training please Sep, Atelectasis of right lung (ICD-10 - J98.11) Please obtain any previous chest CT done at [place] in the past, and have them load onto our PACS Sep, Tobacco use disorder (ICD-10 - F17.200) Sep, Coronary artery disease involving [place] heart without angina pectoris, unspecified vessel or lesion type (ICD-10 - I25.10) [employer] Other 03-23-2023 Evaluation note* Encounter Date Diagnosis Assessment Notes Treatment Notes Treatment Clinical Notes Sep, Coronary artery disease involving [place] coronary artery of [place] heart without angina pectoris (ICD-10 - I25.10) [...] needs a titration study at the least. [employer] Other 03-21-2023 Hospital Discharge instructions Additional Instructions [...] doctor or pharmacist, without first calling the roving winder who implanted the stent. If you require [...] weight lifting, stair steppers, etc. until the roving winder approves these activities. Check with the roving winder on your first follow-up visit. CALL YOUR PHYSICIAN at [phone]: -If bleeding should occur from the catheter insertion site- apply pressure to the site then immediately call us. -Report any fever, redness, drainage, increased swelling, or firmness at the catheter insertion site. Some bruising or slight swelling may be present at the time of discharge. -Should arm or leg become cold, numb, white, or blue, contact the roving winder immediately. -IF you should experience episodes of [...] is recommended. Please call Central Scheduling at [phone] to schedule your appointment.] The attending roving winder or [facility] nurse clinician should provide you with specific instructions regarding activity, diet, medications, and further follow up for you. Follow the medication instructions provided on your discharge. If the dosages and instructions on this sheet differ from the dosage and instructions on the bottle, follow the instructions on the bottle. [facility] is not responsible for incorrect prescription information provided by the patient during their visit. Do not stop your medications without consulting your health care provider. Please take the list with you to your next doctor's appointment.[facility] Work Phone: 1(420) 706-521103-21-2023 Progress note Author Rubén Tatum [facility] October 13, 2022 9:02am Note Date/Time October 13, 2022 9:0 2am [facility] [address] [place] [address] Cardiology Progress Note Signed Patient: Hector Gaspar SR MR#: [id number] : 1960 Acct:[id number] Age/Sex: 62 / M Adm Date: 3 Loc: 4P Room: [address] [place] [address] Type: ADM IN Attending Dr: Barbara Rivero [...] signed by Rubén Tatum MD> 10/13/22 0902 [facility] Work Phone: 1(956) 204-778603-20-2023 Progress note Author Barbara Rivero [facility] October 12, 2022 2:24pm Note Date/Time October 12, 2022 2:1 2pm [facility] [address] [place] [address] Hospitalist Progress Note Signed Patient: Hector Gaspar SR MR#: [id number] : 1960 Acct:[id number] Age/Sex: 62 / M Adm Date: 3 Loc: Room: [address] [place] [address] Type: ADM IN Attending Dr: Barbara Rivero [...] Syringe SUBCUT 10/12/23 09:59 Not Given DAILY@1000 [facility] Fentanyl Citrate 25 mcg 10/10/22 12:23 Fentanyl/Pf [...] this time. (3) Ventricular tachycardia seen on media monitor: Plan: No further episodes of ventricular [...] <Electronically signed by Barbara Rivero MD> 10/12/22 1422 [facility] Work Phone: 1(340) 632-703203-20-2023 Progress note Author Rubénkip Tatum [facility] October 12, 2022 10:00am Note Date/Time October 12, 2022 9:5 9am [facility] [address] [place] [address] Cardiology Progress Note Signed Patient: Hector Gaspar SR MR#: [id number] : 1960 Acct:[id number] Age/Sex: 62 / M Adm Date: 3 Loc: Room: [address] [place] [address] Type: ADM IN Attending Dr: Barbara Rivero [...] pacing device. (3) Ventricular tachycardia seen on media monitor: Assessment/Problem Details: Stable no further wide-complex [...] 30 Documented By: Rubén Tatum MD 10/12/22 0905 Signed By: <Electronically signed by Rubén Tatum MD> 10/12/22 1000 [facility] Work Phone: 1(633) 958-611603-19-2023 Progress note Author Barbara Rivero [facility] October 11, 2022 11:24am Note Date/Time October 11, 2022 11: 15am [facility] [address] [place] [address] Hospitalist Progress Note Signed Patient: Hector Gaspar SR MR#: [id number] : 1960 Acct:[id number] Age/Sex: 62 / M Adm Date: 3 Loc: 4 Room: [address] [place] [address] Type: ADM IN Attending Dr: Barbara Rivero [...] smoking cessation. (3) Ventricular tachycardia seen on media monitor: Plan: Patient given potassium and magnesium [...] <Electronically signed by Barbara Rivero MD> 10/11/22 1123 [facility] Work Phone: 1(968) 661-927403-19-2023 Progress note Author Rubén Tatum [facility] October 11, 2022 9:41am Note Date/Time October 11, 2022 9:3 3am [facility] [address] [place] [address] Cardiology Progress Note Signed Patient: Hector Gaspar SR MR#: [id number] : 1960 Acct:[id number] Age/Sex: 62 / M Adm Date: 3 Loc: 4 Room: [address] [place] [address] Type: ADM IN Attending Dr: Barbara Rivero [...] % (Auto) 63.8 Lymph % (Auto) 21.8 Nash % (Auto) 10.2 Eos % (Auto) 3.7 Baso % (Auto) 0.5 Nucleat RBC Rel Count 0.1 Neut # (Auto) 4.2 Lymph # (Auto) 1.4 Nash # (Auto) 0.7 Eos # (Auto) 0.2 [...] MPV Neut % (Auto) Lymph % (Auto) Nash % (Auto) Eos % (Auto) Baso % (Auto) Nucleat RBC Rel Count Neut # (Auto) Lymph # (Auto) Nash # (Auto) Eos # (Auto) Baso # [...] AV node (3) Ventricular tachycardia seen on media monitor: Assessment/Problem Details: Not entirely certain that [...] <Electronically signed by Rubén Tatum MD> 10/11/2241 [facility] Work Phone: 1(333) 292-102903-18-2023 Progress note Author Barbara Rivero [facility] October 10, 2022 1:33pm Note Date/Time October 10, 2022 1:3 3pm [facility] [address] [place] [address] Event Note Signed Patient: Hector Gaspar MR#: [id number] : 1960 Acct:[id number] Age/Sex: 62 / M Adm Date: 3 Loc: Room: [address] [place] [address] Type: ADM IN Attending Dr: Barbara Rivero [...] 1330 Signed By: <Electronically signed by Barbara Rievro MD> 10/10/22 4293 [facility] Work Phone: 1(579) 921-424103-18-2023 History of Present illness Narrative* Patient presents to the office ambulatory with steady gait. * This is initial in clinic follow-up at [facility]. * October 10, 2022 transferred to [facility] from [facility] d/t NSTEMI. Managed by with uneventful [...] medication regimen. He denies medication side effects. [facility] 250 DO Work Phone: 1(411) 504-483203-18-2023 Procedure [facility]03-18-2023 Procedure [facility]03-18-2023 Consult note Author uRbén Tatum [facility] October 10, 2022 9:54am Note Date/Time October 10, 2022 9:5 1am [facility] [address] [place] [address] Cardiology Consult Note Signed Patient: Hector Gaspar SR MR#: [id number] : 1960 Acct:[id number] Age/Sex: 62 / M Adm Date: 3 Loc: 3T Room: [address] [place] [address] Type: ADM IN Attending Dr: Barbara Rivero MD Copies to: MD Barbara Barry MD Stephen M Tann, MD~ Cardiology HPI History of Present Illness Consult Date: 10/10/22 Reason for Consult: Nausea, non-STEMI HPI: Mr. Gaspar is a 62 year old male with multiple cardiac risk factors but no known prior coronary heart disease who presented to [place] emergency department lastnight complaining of nausea x2 [...] consistent nausea ever since. He presented to [place] emergency department last evening with these complaints. In the ER at [place] ECG showed Q waves in the inferolateral [...] trend upward to 6000 and then greater [id number]. Echocardiogram at bedside this morning shows normal [...] Lymph # (Auto) 1.4 1.4 (1.00-4.8) x10E3/uL Nash # (Auto) 0.6 0.6 (0.0-0.8) x10E3/uL Eos [...] signed by Rubén Tatum MD> 10/10/22 0954 [facility] Work Phone: 1(326) 656-228603-18-2023 History and physical note Author Galo Dent [facility] October 10, 2022 7:28am Note Date/Time October 10, 2022 7:2 8am [facility] [address] [place] [address] Hospitalist H&P Signed Patient: Hector Gaspar SR MR#: [id number] : 1960 Acct:[id number] Age/Sex: 62 / M Adm Date: 3 Loc: 3T Room: [address] [place] [address] Type: ADM IN Attending Dr: Barbara Rivero MD Copies to: MD Barbara Barry MD Mushtaq Mahmood, MD~ HPI DATE OF EXAMINATION: 10/10/22 CHIEF COMPLAINT: Non-ST elevation WA HISTORY OF PRESENT ILLNESS: Patient is a 62-year-old gentleman with history of hypertension, heavy smoking about 1-1/2 pack for 45 years, COPD, strong family history of coronary artery disease, came to us from [place] emergency department last night. Patient presented to [...] The ER physician did talk to the roving winder here in [facility]. Patient was started on heparin drip, nitro patch was applied. He was sent to our hospital. Upon arrival in the [facility] patient complained about headache. Nitropatch was [...] % (Auto) 27.5 % (.) 10/10/22 06:10 Nash % (Auto) 11.4 % (.) 10/10/22 06:10 Eos % (Auto) 4.4 % (.) 10/10/22 06:10 Baso % (Auto) 0.6 % (.) 10/10/22 06:10 Nucleat RBC Rel Count 0.1 /100 WBC (0-0.5) 10/10/22 06:10 Neut # (Auto) 2.9 x10E3/uL (1.8-7.7) 10/10/22 06:10 Lymph # (Auto) 1.4 x10E3/uL (1.00-4.8) 10/10/22 06:10 Nash # (Auto) 0.6 x10E3/uL (0.0-0.8) 10/10/22 06:10 [...] <Electronically signed by Galo Dent MD> 10/10/22727 [facility] Work Phone: 1(174) 171-675002-15-2023 Evaluation note* Encounter Date Diagnosis Assessment Notes [...] in office today. Prior medical notes from [facility] and history have been reviewed. [...] any surgical interventions. Tobacco cessation program at [facility] has been recommended and offered as well as the national Quitline 3-311-XQZP-NOW. We have discussed pharmacologic treatment including nicotine replacement therapy which can lead to a positive nicotine test as well as nicotine free medications both of which will need to be managed by their PCP. We have provided handout for the [facility] Tobacco Cessation Program. This discussion was limited to 5 minutes. Aug, Other See orders for this visit as documented in the electronic medical record. [facility] [employer] Other 01-19-2023 Evaluation note* Encounter Date Diagnosis Assessment Notes Treatment Notes Treatment Clinical Notes Jul, Chronic obstructive pulmonary disease with acute exacerbation (ICD-10 - J44.1) Discussed diagnosis with patient. Medication profile and possible SE reviewed with patient. Take as directed. Keep appt w Dr. Castillo on 08/31. Notify office if not improving or worsening. Patient verbalizes understanding and agrees to treatment plan. [facility] [employer] Other 01-05-2023 Evaluation note* Encounter Date Diagnosis Assessment Notes Treatment Notes Treatment Clinical Notes Jul, Chronic obstructive pulmonary disease with acute exacerbation (ICD-10 - J44.1) [facility] [employer] Other Discharge summary Author Barbara Rivero [facility] October 13, 2022 2:14pm Note Date/Time October 13, 2022 2:0 9pm [facility] [address] [place] [address] Discharge Summary Signed Patient: Hector Gaspar SR MR#: [id number] : 1960 Acct:[id number] Age/Sex: 62 / M Adm Date: 3 Loc: Room: [address] [place] [address]: Barbara Rivero MD Copies to: [...] doctor or pharmacist, without first calling the roving winder who implanted the stent. If you require [...] weight lifting, stair steppers, etc. until the roving winder approves these activities. Check with the roving winder on your first follow-up visit. CALL YOUR PHYSICIAN at [phone]: -If bleeding should occur from the catheter insertion site- apply pressure to the site then immediately call us. -Report any fever, redness, drainage, increased swelling, or firmness at the catheter insertion site. Some bruising or slight swelling may be present at thetime of discharge. -Should arm or leg become cold, numb, white, or blue, contact the roving winder immediately. -IF you should experience episodes of [...] is recommended. Please call Central Scheduling at [phone] to schedule your appointment.] The attending roving winder or [facility] nurse clinician should provide you with specific instructions regarding activity, diet, medications, and further follow up for you. Follow the medication instructions provided on your discharge. If the dosages and instructions on this sheet differ from the dosage and instructions on the bottle, follow the instructions on the bottle. [facility] is not responsible for incorrect prescription [...] BY MOUTH EVERY DAY Other Ambulatory Orders: SPECIAL EDUCATION PROFESSIONAL polysom procedure (Routine) Timeframe: 1 Week Location: Determined by Patient Ordered By: Barbara Rivero Follow Up: [facility] [Outside] (Left message with [facility] regarding need for [...] signed by Barbara Rivero MD> 10/13/22 1414 [facility] Work Phone: Evaluation noteNo assessment information available [facility] Work Phone: Evaluation noteNo [employer] Other Evaluzjnzj note* Diagnosis Onset Date Resolution Status COPD (chronic obstructive pulmonary disease) acute Heart block AV complete acut e Hypertension acute Hypoxemia acute NSTEMI (non-ST elevated myocardial infarction) acute Sleep apnea in adult acute Tobacco abuse acute Ventricular tachycardia seen on media monitor acute [facility] Work Phone: Evaluation note* Diagnosis Abdominal aortic aneurysm (AAA) without rupture, unspecified part (CMS-HCC)- Primary Obstructive chronic bronchitis with exacerbation (CMS-HCC) Obstructive chronic bronchitis with exacerbation Obesity with body mass index (BMI) of 30.0 to 39.9 Chronic obstructive pulmonary disease, unspecified COPD type (CMS-HCC) [facility] Diagnosis Abdominal aortic aneurysm (AAA) without rupture, unspecified part (CMS-HCC)- Primary Obstructive chronic bronchitis with exacerbation (CMS-HCC) Obstructive chronic bronchitis with exacerbation Obesity with body mass index (BMI) of 30.0 to 39.9 [facility] Diagnosis Abdominal aortic aneurysm (AAA) without rupture, unspecified part (CMS-HCC)- Primary Obstructive chronic bronchitis with exacerbation (CMS-HCC) Obstructive chronic bronchitis with exacerbation Obesity with body mass index (BMI) of 30.0 to 39.9 [facility] Diagnosis Atherosclerosis of [place] coronary artery of [place] heart without angina pectoris Essential hypertension, benign Mixed hyperlipidemia Ischemic cardiomyopathy Other specified forms of chronic ischemic heart disease Past myocardial infarction Old myocardial infarction Moderate chronic obstructive pulmonary disease (CMS/HCC) Chronic airway obstruction, not elsewhere classified Obesity (BMI 35.0-39.9 without comorbidity) Current smoker documented in this encounter [facility] Work Phone: Evaluation note* Diagnosis Onset Date Resolution Status COPD (chronic obstructive pulmonary disease) acute Situational anxiety acute [facility] Work Phone: Evaluation note* Diagnosis Onset Date Resolution Status COPD (chronic obstructive pulmonary disease) acute Situational anxiety acute Hypertension acute Coronary artery disease invo lving [place] heart without angina pectoris acute Hypertension acute Situational anxiety acute [facility] Work Phone: Evaluation note* Diagnosis Onset Date Resolution Status Hypertension acute Coronary artery disease invo lving [place] heart without angina pectoris acute Hypertension acute Situational anxiety acute Right knee pain acute Right leg pain acute [facility] Work Phone: Evaluation note* Diagnosis Onset Date Resolution Status Right knee pain acute Right leg pain acute [facility] Work Phone: History general Narrative - Reported* [...] History appendectomy 05/02/18 Hospitalization History SEE SURGICAL [employer] Other [facility] general Narrative - Reported* Type Description Date [...] 3 Stents 09/2022 Hospitalization History SEE SURGICAL [employer] Other [facility]w[employer] general Narrative - Reported* Type Description Date [...] 3 Stents 09/2022 Hospitalization History SEE SURGICAL [employer] Other History general Narrative - Reported* Type [...] History SEE SURGICAL HX Hospitalization History pneumonia [employer] Other InstructionsNot on filedocumented in this encounter [employer] SystemInstructionsNot on filedocumented in this encounter [employer] SystemInstructionsNot on filedocumented in this encounter [facility] [employer] SystemReason for referral (narrative)* Consultation (Routine) - Authorized Specialty Diagnoses / Procedures Referred By Contac t Referred To Contact Cardiology Diagnoses Atherosclerosis of [place] coronary artery of [place] heart without angina pectoris Procedures Follow Up In Cardiology Alok Armijo DO [address] [facility] [address], [place] [id number] Alok Armijo DO [address] [facility] [address], [place] [id number] Referral ID Status Reason Start Date Expiration Date V isits Requested Visits Authorized [id number] Authorized 09/14/2023 09/13/2024 1 1 [place] Work Phone: Chief Complaint and Reason for Visit Chief Complaint M25.561 Elevated Troponin Reason for Visit COPD (chronic obstru ctive pulmonary disease) Heart block AV complete Hypertension Hypoxemia NSTEMI (non-ST elevated myocardial infarction) Sleep apnea in adult Tobacco abuse Ventricular tachycardia seen on media monitor Chief Complaint M25.561 Elevated Troponin I25.10 I10 E78.2 Reason for Visit COPD (chronic obstru ctive pulmonary disease) Heart block AV complete Hypertension Hypoxemia NSTEMI (non-ST elevated myocardial infarction) Sleep apnea in adult Tobacco abuse Ventricular tachycardia seen on media monitor Chief Complaint M25.561 Elevated Troponin I25.10 I10 E78.2 j98.11 Reason for Visit COPD (chronic obstru ctive pulmonary disease) Heart block AV complete Hypertension Hypoxemia NSTEMI (non-ST elevated myocardial infarction) Sleep apnea in adult Tobacco abuse Ventricular tachycardia seen on media monitor Chief Complaint Tbh Amb Documentation Breathing Issues Dizziness Reason for Visit COPD (chronic obstru ctive pulmonary disease) Situational anxiety Chief Complaint Amb Documentation Breathing Issues Dizziness 1 month follow up pain in right calf Reason for Visit COPD (chronic obstru ctive pulmonary disease) Situational anxiety Hypertension Coronary artery disease involving [place] heart without angina pectoris Hypertension Situational anxiety Chief Complaint Dizziness 1 month follow up pain in right calf right leg swollen and painful Reason for Visit Hypertension Coronary artery disease involving [place] heart without angina pectoris Hypertension Situational anxiety [...] 2012 that has been followed reportedly at [facility] details of which are unknown * [...] aortic aneurysm (AAA) without rupture, unspecified part ([facility]) Obstructive chronic bronchitis with exacerbation ([facility]) Obesity with body mass index (BMI) of 30.0 to 39.9 Chronic obstructive pulmonary disease, unspecified COPD type ([facility]-H[facility]) Procedures CT angiogram abdomen and pelvis Christopher Sewell MD [address], [address] [address] Referral ID Status Reason Start Date Expiration Date V isits Requested Visits Authorized [id number] Pending Review 08/22/2023 08/21/2024 1 1 Reason *FU 07/28 5cm AAA - report scanned. Diagnosis 1 Abdominal aortic ane urysm (AAA) without rupture, unspecified part (I71.40) Referral Organization [facility] Augustin barber Referring Provider First Name Brock Referring Provider Last Name yL Referring Provider Specialty Family [facility] Referred Organization [facility] Referred Provider Christopher Sewell Referred Address [address], [place],[address] Referred Provider Specialty Vascular Mir michelle Referral Priority Routine General Notes Helen Mendez 09:16:43 AM >received today, attachments made, ntoes locked, referral faxed Clinical Notes p: [phone] f: [id number] Additional Source Comments Care Teams (unrecognized sec [...] Status: Active Member Role Status Dates Brock Mdoi MD Primary Care Provide r, Attending Provider Active Start: May 26, 2024 Team Status: Inactive Member Role Status Dates Brock Modi MD Primary Care Provide r, Attending Provider Active Start: May 29, 2024 End: May 29, 2024 Team Status: Inactive Member Role Status Dates Brock Modi MD Primary Care Provider Active Start: December 13, 2023 End: December 13, 2023 Brenda Jolley APRN HAND EMBROIDERER-C Attending Provider Act carol Start: December 13, [...] Active Adi Campos MD Attending Provider Active 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 Relationship Specialty Start Date End Date Brock Modi MD [address] [place] [address] PCP - General Family Medicine 09/03/21 [employer] 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 Relationship Specialty Start Date End Date Brock Modi MD [address] [place] [address] PCP - General Family Medicine 09/03/21 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 Relationship Specialty Start Date End Date Brock Modi MD [address] [place] [address] PCP - General Family Medicine 09/03/21 [employer] 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 Relationship Specialty Start Date End Date Brock [...] aortic aneurysm (AAA) without rupture, unspecified part ([facility]) Christopher Sewell MD [address] , [address] [address] Christopher Sewell MD [address] [place] [address] Referral ID Status Reason Start Date Expiration Date Visits Requested Visits Authorized [id number] Pending Review Specialty Services Required 3 07/21/2024 1 1 US resultTBHsleep apnea discussionrefillAlprazolamRecheck Right Knee* Reason for Visit: * Holter Monitor: * HECTOR is here for the application of a 48 hour Holter monitor. * Ordering Physician: JANINE CUNHA * Diagnosis: CAD SINUS PAUSE * [facility] equipment agreement signed. HECTOR understands monitor is to be returned on: 11-03-22 * Monitor number [id number] applied. * Holter monitor returned and downloaded. messagePulmonary Office NotesRef by Dr. Brock Modi for COPDAMERICAN HOSPITAL ASSOCIATION - HAD HEART ATTACKRight Knee PainCheck Upnot [...] CREATED AUTHOR AUTHOR'S ORGANIZ ATION 04/09/2023 [facility] DATE CREATED AUTHOR AUTHOR'S ORGANIZ ATION 08/08/2023 [facility] DATE CREATED AUTHOR AUTHOR'S ORGANIZ ATION 11/12/2023 [facility] DATE CREATED AUTHOR AUTHOR'S ORGANIZ ATION 03/09/2024 [facility] DATE CREATED AUTHOR AUTHOR'S ORGANIZ ATION 06/12/2024 [facility] FOR RECORDS PERTAINING TO PATIENTS [...] BE BASED ON THE PRIMARY CLINICAL RECORDS. [facility] [employer] [facility]. provides no warranty or guarantee of the accuracy or completeness of information in this document.
--- NOTE | 2024-09-03 22:28 | ECG_ITS ---
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
--- NOTE | 2024-09-03 22:29 | ED_ITS ---
HPI HPI - General Adult General Chief complaint: Shortness of Breath/Dyspnea Stated complaint: shortness of breath Time Seen by Provider: 09/03/24 22:10 Mode of arrival: walk-in Limitations: no limitations History of Present Illness HPI narrative: 64-year-old male presents to the emergency department for difficulty breathing. He has been sick for over a week and was in this emergency department and he saw his family doctor. He has been on Cipro. He states usually Zithromax helps. He is worried about having pneumonia. He feels like he needs a breathing treatment and has a nebulizer with medicine at home but did not take a breathing treatment at home. No hemoptysis. He did not check his temperature at home. Related Data Home Medications ?Medication ?Instructions ?Recorded ?Confirmed aspirin 81 mg chewable tablet 1 tab PO DAILY 01/24/23 09/03/24 atorvastatin 80 mg tablet 80 mg PO QPM 01/24/23 09/03/24 valsartan 160 mg tablet 160 mg PO DAILY 09/01/23 09/03/24 clopidogrel 75 mg tablet (Plavix) 75 mg PO DAILY 10/09/23 09/03/24 ciprofloxacin HCl 500 mg tablet mg 09/03/24 Previous Rx's ?Medication ?Instructions ?Recorded albuterol sulfate 90 mcg/actuation 2 inh inhalation Q4H PRN shortness 08/10/24 aerosol inhaler of breath or wheezing #8.5 grams doxycycline hyclate 100 mg tablet 100 mg PO BID 7 days #14 tabs 08/10/24 prednisone 20 mg tablet 60 mg (3 x 20 mg) PO DAILY 3 days 08/10/24 #9 tabs azithromycin 250 mg tablet See Rx Instructions PO .COMPLEX #6 09/03/24 (Zithromax Z-Maury) tabs prednisone 10 mg tablet See Rx Instructions .Route 09/03/24 .COMPLEX #30 tabs Allergies Allergy/AdvReac Type Severity Reaction Status Date / Time Penicillins Allergy Severe Hives Verified 09/03/24 22:21 pneumonia shot AdvReac Intermediate Unknown Uncoded 09/03/24 22:21 Opioid HPI Opioid Management Most Recent Opioid Data: No Data to Display Review of Systems ROS Narrative A ten point review of systems is negative except as noted above. [facility] Medical History (Updated 09/03/24 @ 23:24 by Frank Ashford MD) Hypercholesterolemia ?E78.00 - Pure hypercholesterolemia, unspecified (ICD-10) COPD (chronic obstructive pulmonary disease) ?J44.9 - Chronic obstructive pulmonary disease, unspecified (ICD-10) Social History Smoking status: Current every day smoker Little interest or pleasure in doing things: not at all Feeling down, depressed, or hopeless: not at all Exam Narrative Exam Narrative: Nurses note and vital signs reviewed and patient is not hypoxic. General: The patient appears well and in no apparent distress. Patient is resting comfortably on cart. Skin: Warm, dry, no pallor noted. There is no rash noted. Head: Normocephalic, atraumatic Eye: Normal conjunctiva, no drainage Ears, Nose, Mouth, and Throat: oral mucosa is moist. Nares patent. Cardiovascular: Regular Rate and Rhythm, not tachycardic Respiratory: Patient is in no distress, no accessory muscle use, lungs show a few bilateral rhonchi with good air movement Back: non-tender GI: Soft and nontender Musculoskeletal: The patient has no evidence of calf tenderness, no pitting edema, symmetrical pulses noted bilaterally Neurological: A&O, normal speech Psychiatric: Cooperative Constitutional Vital Signs, click to edit/add: Last Vital Signs Temp 97.9 F 09/03/24 22:13 Pulse 91 H 09/03/24 23:01 Resp 17 09/03/24 23:01 BP 104/82 09/03/24 23:01 Pulse Ox 94 L 09/03/24 23:01 O2 Del Method Room Air 09/03/24 22:48 Course Vital Signs Vital signs: Vital Signs Temperature 97.9 F 09/03/24 22:13 Pulse Rate 95 H 09/03/24 22:13 Respiratory Rate 16 09/03/24 22:13 Blood Pressure 134/89 09/03/24 22:13 Pulse Oximetry 96 09/03/24 22:13 Oxygen Delivery Method Room Air 09/03/24 22:13 Temperature 97.9 F 09/03/24 22:13 Pulse Rate 91 H 09/03/24 23:01 Respiratory Rate 17 09/03/24 23:01 Blood Pressure 104/82 09/03/24 23:01 Pulse Oximetry 94 L 09/03/24 23:01 Oxygen Delivery Method Room Air 09/03/24 22:48 Medical Decision Making MDM Narrative Medical decision making narrative: His workup is negative including chest x-ray and blood work. He will be switched to Zithromax and was prescribed prednisone as well. Treatment diagnosis and follow-up were discussed with the patient. Differential Diagnosis Differential Diagnosis: Pneumonia, COPD exacerbation, viral URI Lab Data Lab results reviewed: Yes I reviewed the patient's lab results Labs: Lab Results 09/03/24 Range/Units 22:45 WBC 6.1 (4.0-11.0) 10^3/uL RBC 4.61 L (4.70-6.10) 10^6/uL Hgb 14.2 (14.0-18.0) g/dL Hct 41.3 L (42.0-54.0) % MCV 89.6 (80.0-94.0) fL MCH 30.8 (25.9-34.0) pg MCHC 34.4 (29.9-35.2) g/dL RDW 13.2 (11.0-15.0) % Plt Count 238 (150-450) 10^3/uL MPV 9.5 (9.5-13.5) fL Neut % (Auto) 71.4 (43.0-75.0) % Lymph % (Auto) 21.9 (20.5-60.0) % [place] % (Auto) 5.1 (1.7-12.0) % Eos % (Auto) 0.8 L (0.9-7.0) % Baso % (Auto) 0.3 (0.2-2.0) % Neut # (Auto) 4.3 (1.4-6.5) 10^3/uL Lymph # (Auto) 1.3 (1.2-3.8) 10^3/uL [place] # (Auto) 0.3 (0.3-0.8) 10^3/uL Eos # (Auto) 0.1 (0.0-0.7) 10^3/uL Baso # (Auto) 0.0 (0.0-0.1) 10^3/uL Abs Immat Gran (auto) 0.03 (0.00-0.03) 10^3/uL Imm/Tot Granulo (auto) 0.5 (0.0-0.5) % Sodium 141 (136-145) mmol/L Potassium 4.8 (3.5-5.1) mmol/L Chloride 104 (98-107) mmol/L Carbon Dioxide 25.6 (21.0-32.0) mmol/L Anion Gap 16.2 BUN 23.0 H (7.0-18.0) mg/dL Creatinine 1.39 H (0.70-1.30) mg/dL Est GFR ( Amer) >60 (>=60 mL/min/1.73m^2) Est GFR (Non-Af Amer) 51 L (>=60 mL/min/1.73m^2) BUN/Creatinine Ratio 16.5 Glucose 183 H (74-106) mg/dL Calcium 9.2 (8.5-10.1) mg/dL Imaging Data Chest x-ray: Radiologist's impression: ITS Impressions Chest X-Ray 09/03/24 22:29 IMPRESSION: No plain film evidence for acute cardiopulmonary disease. Electronically authenticated by: SARTHAK DOMINGUEZ Date: 09/03/2024 23:18 ECG Data Attestation: I personally reviewed and interpreted this ECG as follows: (EKG on my interpretation shows normal sinus rhythm with rate of 94 and no acute change) Discharge Plan Discharge Chief Complaint: Shortness of Breath/Dyspnea Clinical Impression: COPD with acute exacerbation Patient Disposition: Home, Self-Care Time of Disposition Decision: 23:24 Condition: Good Mode of Transportation: Private Vehicle Prescriptions / Home Meds: New prednisone 10 mg tablet See Rx Instructions .ROUTE .COMPLEX Qty: 30 0RF Rx Instructions: 4 by mouth daily for three days then 3 by mouth daily for three days then 2 by mouth daily for three days then 1 by mouth daily for three days azithromycin [Zithromax Z-Maury] 250 mg tablet See Rx Instructions .ROUTE .COMPLEX Qty: 6 0RF Rx Instructions: For 250 mg dose pack: take 500 mg today (day 1), then 250 mg for 4 days (days 2-5) No Action aspirin 81 mg tablet,chewable 1 tab PO DAILY atorvastatin 80 mg tablet 80 mg PO QPM valsartan 160 mg tablet 160 mg PO DAILY Rx Instructions: HS prednisone 20 mg tablet 60 mg PO DAILY 3 Days Qty: 9 0RF albuterol sulfate 90 mcg/actuation HFA aerosol inhaler 2 inh inhalation Q4H PRN (Reason: shortness of breath or wheezing) Qty: 8.5 0RF doxycycline hyclate 100 mg tablet 100 mg PO BID 7 Days Qty: 14 0RF ciprofloxacin HCl 500 mg tablet clopidogrel [Plavix] 75 mg tablet 75 mg PO DAILY Print Language: Norwegian Instructions: COPD (Chronic Obstructive Pulmonary Disease) (ED) Additional Instructions: Discontinue the Cipro Referrals: Sukumar Davison MD [Primary Care Provider] - 1 week
--- NOTE | 2024-09-03 22:29 | XR_ITS ---
The [address] [address] Patient Name: HECTOR HIGHTOWER MRN: [id number] date: 1960 Sex: M Assigned Patient Location: ER Current Patient Location: ER Accession/Order Number: [id number] Exam Date: 09/03/2024 22:33 Report Date: 09/03/2024 23:18 At the request of: SARITA RUSSELL Procedure: XR chest 1V CXR HISTORY: Shortness of breath COMPARISON: 08/10/2024 chest x-ray TECHNIQUE: 1 view chest submitted for review. FINDINGS: The lungs are adequately expanded without evidence of acute infiltrate or effusion. The cardiac silhouette measures within normal. Pulmonary vascularity is unremarkable. Osseous structures do not demonstrate any acute abnormality. XR/XR chest 1V IMPRESSION: No plain film evidence for acute cardiopulmonary disease. Electronically authenticated by: SARTHAK DOMINGUEZ Date: 09/03/2024 23:18
[2024-09-03] MEDS: METHYLPREDNISOLONE SOD SUCC PF 125 MG/2 ML VIAL IVP (22:44)
[2024-09-03] MEDS: ALBUTEROL SULFATE 2.5 MG/3 ML VIAL NEB IH (22:46)
[2024-09-03 22:52] LABS: Basophils Percent Auto 0.3 % (0.2-2.0); Eosinophils Absolute Auto 0.1 10^3/uL (0.0-0.7); Eosinophils Percent Auto 0.8 % (0.9-7.0); Hematocrit 41.3 % (42.0-54.0); Hemoglobin 14.2 g/dL (14.0-18.0); Immature Granulocytes Abs Auto 0.03 10^3/uL (0.00-0.03); Immature Granulocytes Pct Auto 0.5 % (0.0-0.5); Lymphocytes Absolute Auto 1.3 10^3/uL (1.2-3.8); Lymphocytes Percent Auto 21.9 % (20.5-60.0); Mean Corpuscular HGB Conc 34.4 g/dL (29.9-35.2); Mean Corpuscular Hemoglobin 30.8 pg (25.9-34.0); Mean Corpuscular Volume 89.6 fL (80.0-94.0); Mean Platelet Volume 9.5 fL (9.5-13.5); Monocytes Absolute Auto 0.3 10^3/uL (0.3-0.8); Monocytes Percent Auto 5.1 % (1.7-12.0); Neutrophils Absolute Auto 4.3 10^3/uL (1.4-6.5); Neutrophils Percent Auto 71.4 % (43.0-75.0); Platelet Count 238 10^3/uL (150-450); Red Blood Count 4.61 10^6/uL (4.70-6.10); Red Cell Distribution Width 13.2 % (11.0-15.0); White Blood Count 6.1 10^3/uL (4.0-11.0)
[2024-09-03 23:02] LABS: Anion Gap 16.2; BUN Creatinine Ratio 16.5; Calcium 9.2 mg/dL (8.5-10.1); Carbon Dioxide 25.6 mmol/L (21.0-32.0); Chloride 104 mmol/L (98-107); Estimated GFR (African America >60 (>=60 mL/min/1.73m^2); Estimated GFR (Non-African Ame 51 (>=60 mL/min/1.73m^2); Glucose 183 mg/dL (74-106); Potassium 4.8 mmol/L (3.5-5.1); Sodium 141 mmol/L (136-145)
[2024-09-04] VITALS: PULSE 80; O2SAT 94
[2024-09-04 00:01] VITALS: BP 106/72; PULSE 86; O2SAT 94
== END 2024-09-04 00:07 | disposition home or self-care (01) ==
PROVIDERS: Emergency Provider Emergency Medicine; PCP Family Medicine
DX: J44.1 Chronic obstructive pulmonary disease with (acute) exacerbation (principal); F17.200 Nicotine dependence, unspecified, uncomplicated
CPT/HCPCS: 36415; 71045; 80048; 85025; 93005; 94640; 96374; 99285; J2919

== ENCOUNTER 2024-09-11 12:48 | Outpatient (OUT) | payer OTHER, SELFPAY ==
--- NOTE | 2024-09-11 12:54 | CT_ITS ---
[address] [address] Patient Name: HECTOR HIGHTOWER MRN: [id number] date: 1960 Sex: M Assigned Patient Location: CT Current Patient Location: CT Accession/Order Number: [id number] Exam Date: 09/11/2024 13:03 Report Date: 09/11/2024 15:57 At the request of: GADIEL ARMENTA Procedure: CT angio abdomen pelvis EXAM: CT angio abdomen pelvis HISTORY: Aortic aneurysm COMPARISON: Ultrasound from 07/15/2023 TECHNIQUE: CT angio abdomen pelvis FINDINGS: VASCULATURE: DISTAL DESCENDING THORACIC AORTA: Moderate atherosclerotic disease without a significant abnormality. ABDOMINAL AORTA: Severe atherosclerotic disease. There is a largely thrombosed infrarenal abdominal aortic aneurysm measuring 5.2 x 5.0 cm. When compared to the ultrasound from 2022, this has not significantly changed. CELIAC AXIS: No significant abnormality. SMA: Mild atherosclerotic narrowing of the proximal segment. RIGHT RENAL: No significant abnormality. Small accessory right renal artery. LEFT RENAL: No significant abnormality. JONI: Not well opacified at its origin but perfused via collateral flow. RIGHT ILIAC / PROXIMAL FEMORAL ARTERIES: Moderate atherosclerotic disease. Ectasia of the right common iliac artery to 1.9 cm (image 135 of series 4). LEFT ILIAC / PROXIMAL FEMORAL ARTERIES: Moderate atherosclerotic disease. Ectasia of the left common iliac artery to 1.8 cm. LOWER CHEST: LUNG BASES / PLEURA: Normal. DISTAL ESOPHAGUS: Normal. HEART / VESSELS: Moderate coronary artery disease. ABDOMEN and PELVIS: LIVER: Normal. BILIARY TRACT: Normal. GALLBLADDER: No abnormality. PANCREAS: Normal. SPLEEN: Normal. ADRENALS: Normal. KIDNEYS: Normal. LYMPH NODES: None enlarged. STOMACH / SMALL BOWEL: No abnormality. COLON / APPENDIX: Colonic diverticulosis PERITONEUM / MESENTERY: Normal. RETROPERITONEUM: Normal. OTHER VESSELS: No significant abnormality. URINARY BLADDER: Multiple urinary bladder diverticula. REPRODUCTIVE ORGANS: No abnormality. BODY WALL: No significant abnormality. MUSCULOSKELETAL: No acute abnormality. Mild degenerative arthrosis of both hips. Multilevel degenerative changes of the thoracolumbar spine. CT/CT angio abdomen pelvis IMPRESSION: 1. Largely thrombosed infrarenal abdominal aortic aneurysm measuring up to 5.2 cm, not significantly changed when compared to the ultrasound from 07/15/2023. 2. Bilateral common iliac artery ectasia and other findings as above. Electronically authenticated by: AUGUSTA ALVARENGA Date: 09/11/2024 15:57
== END 2024-09-11 12:49 | disposition home or self-care (01) ==
LOC: CT 12:49
PROVIDERS: PCP Family Medicine; Visit Provider Student in an Organized Health Care Education/Training Program
DX: I71.43 Infrarenal abdominal aortic aneurysm, without rupture (principal)
CPT/HCPCS: 74174; Q9967

== ENCOUNTER 2024-09-21 11:30 | Outpatient (OUT) | payer OTHER, SELFPAY ==
[2024-09-21 12:14] LABS: Alanine Aminotransferase 35 U/L (16-63); Aspartate Amino Transferase 20 U/L (15-37); C Reactive Protein <0.50 mg/dL (<=0.50); Chol HDL Ratio 4.1; Cholesterol 174 mg/dL (<=200); HDL Cholesterol 42 mg/dL (40-60); Triglycerides 309 mg/dL (<=150); VLDL CHOLESTEROL 61.8 mg/dL
== END 2024-09-21 11:31 | disposition home or self-care (01) ==
LOC: LAB 11:32
PROVIDERS: PCP Family Medicine; Visit Provider Internal Medicine Cardiovascular Disease
DX: E78.2 Mixed hyperlipidemia (principal); I25.5 Ischemic cardiomyopathy; I25.2 Old myocardial infarction; I10 Essential (primary) hypertension; I25.10 Atherosclerotic heart disease of native coronary artery without angina pectoris
CPT/HCPCS: 36415; 80061; 84450; 84460; 86140

== ENCOUNTER 2024-09-24 18:46 | Emergency (ER) | payer OTHER, SELFPAY ==
[2024-09-24 18:49] VITALS: BP 141/96; PULSE 100; TEMP 36.6; O2SAT 98; BMI 39.7
--- OUTSIDE RECORDS SUMMARY | 2024-09-24 18:58 | XMS_ITS | CCD ---
Author Organization [facility] Care Team Providers Care Garbage Man Name Role Phone DO Wagner Marrufo Attending Provider Brock Modi Unavailable Wagner Marrufo Unavailable DO Wagner Marrufo Attending Provider [phone] MD Brock Modi Primary Care Provider MD Janes Dentq Admit Provider MD Barbara Rivero Attending Provider Brock Modi Unavailable Unavailable Unavailable Adi Campos Unavailable ZELALEM Faustin Attending Provider [phone] MD Adi Campos Attending Provider [phone] KULDEEP, DR CAR Torres Attending Unavailable KULDEEP, [...] DALY, DR RUBÉN Baez Admitting Unavailmelissa e LY, DR BROCK Urbano Primary Care Unavailable ALPHONSE, DR ARLIN Simpson Consulting Unavailable ALPHONSE, DR ARLIN Simpson Attending Unavailable ALPHONSE, DR ARLIN Simpson Admitting Unavailable LY, DR BROCK Urbano Primary Care Unavailable AHDOOT, CYNTHIA Consulting Unavailable ALPHONSE, DR ARLIN Simpson Consulting Unavailable CUNHA, DR ARLIN Simpson Attending Unavailable ALPHONSE, DR ARLIN Simpson Admitting Unavailable YL, DR BROCK Urbano Primary Care Unavailable DAREK MARX Consulting Unavailable EBEN, COLIN Consulting Unavailable EBEN, COLIN Attending Unavailable EBEN, COLIN Admitting Unavailable LY, DR BROCK Urbano Primary Care Unavailable AHDOOT, CYNTHIA Consulting Unavailable EBEN, COLIN Consulting Unavailable EBEN, COLIN Attending Unavailable EBEN, CLOIN Admitting Unavailable LY, DR BROCK Urbano Primary Care Unavailable XIOMARA SCHNEIDER Consulting Unavailable HAY ., DR LUIS Consulting Unavailable HAY ., DR LUIS Attending Unavailable HAY ., DR LUIS Admitting Unavailable LY, DR BROCK Urbano Primary Care Unavailable Viral Yang Unavailable Akbar, Dr. Alok Gonzalez Attending Leava ilsobeida Modi, Dr. Brock Case Primary Care Janine Brown Attending Unavailable Alphonse, Janine Referring Unavailable Ly, Dr. Brock Case Primary Care Martin Modi, Dr. Brock Case Primary Care Martin ailJanine Najera Attending Unavailable Alphonse, Janine Referring Unavailable Modi, Dr. Brock Case Primary Care Martin Webber, Dr. Alok Gonzalez Attending Leava ilsobeida Webber, Dr. Alok Gonzalez Referring Leava ilsobeida Modi, Dr. Brock Case Primary Care Brock Leon MD Primary Care Provider [phone] Brock Modi Primary Care Unavailable Adi Campos Attending Unavailable Adi Campos Admitting Unavailable Brock Modi MD Primary Care Provider CHRISTOPHER SEWELL Referring Unavailable BROCK MODI Primary Care Unavailable CHRISTOPHER SEWELL Referring Unavailable BROCK MODI Primary Care Unavailable GEOVANYROM F Attending Unavailable GEOVANY, MECCAAMED F Referring Unavailable SEYMOUR HARPER Primary Care Unavailable GEOVANY, MECCAAMED F Attending Unavailable GEOVANY, MOHAMED F Referring Unavailable SEYMOUR HARPER Primary Care Unavailable Unavailable Primary Care Provider Seymour Adler MD Primary Care Provider [phone] ROM PIERRE F Attending Unavailable BROCK MODI Referring Unavailable SEYMOUR HARPER M Primary Care Unavailable BROCK MODI Referring Unavailable BROCK MODI Primary Care Unavailable Seymour Harper MD Primary Care Provider ALOK WEBBER Attending Unavailable ALOK WEBBER Referring Unavailable SEYMOUR HARPER Primary Care Unavailable Allergies Allergy Classification Reported Allergen(s) Allergy Type Date of Onset Reaction(s) Facility (20 sources) Ciprofloxacin Drug Allergy 10-26-19 24 Nausea & Blurred vision, Comment:nausea and blurred vision [facility] (20 sources) Substance with penicillin structure and antibacterial mechanism of action (substance) Drug allergy Edema, Unknown [facility] Other (20 sources) Pneumococcal 7-Zulma Conj Vacc Drug allergy undefined, Comment:pneumo nococcal 23 [facility] Other (20 sources) Penicillins; Translations: [Penicillins] Propensity to adverse reactions 05-29-20 13 Hives, Swelling [facility] (19 sources) Pneumococcal vaccine; Translations: [pneumococcal vaccine] Drug Allergy 08-08-19 22 Other, Nausea And Vomiting [facility] (8 sources) Pneumococcal vaccine; Translations: [Pneumococcal Vaccines] Drug Allergy Hives [place] [address] DO Work Phone: (2 sources) Penicillin Drug Allergy 07-29-19 16 Unknown [facility] Other (2 sources) patient allergy list reviewed by nurse or physicia Propensity to adverse reactions 07-29-19 16 Comment:Done [facility] Other (2 sources) Allergies Reconciled Propensity to adverse reactions Unknown [facility] Other (5 sources) pneumococcal 7-valent conjugate to Allergy to substance 10-26-19 24 Comment:pneumo nococcal 23 [facility] (7 sources) Ciprofloxacin; Translations: [CIPROFLOXACIN HCL] Drug Allergy 08-08-19 22 [facility] Current Medications Medication Drug Class(es) Dates Sig (Normalized) Sig (Original) AeroChamber MV - (5 sources) Start: 07-30-2022 AeroChamber MV - as directed Jul, Active aspirin 81 mg chewable tablet (20 sources) Platelet Aggregation Inhibitor, Nonsteroidal Anti-inflammatory Drug Start: 10-12-2022 aspirin 81 mg chewable tablet Chew 1 tablet (81 mg total) and swallow in the morning. 07/09/2023 Active take 1 tablet by mouth once ailyn y aspirin 81 mg EC tablet Take 1 tablet (81 mg) by mouth once daily. Active atorvastatin 80 mg oral tablet (20 sources) HMG-CoA Reductase Inhibitor Start: 09-20-2024 take 1 tablet by mouth once daily at bedtime atorvastatin (Lipitor) 80 mg tablet Indications: Mixed hyperlipidemia Take 1 tablet (80 mg) by mouth once daily at bedtime. 90 tablet 3 09/20/2024 Active Start: 2023 End: 09-20-2024 take 1 tablet by mouth once daily at bedtime atorvastatin (Lipitor) 80 mg tablet Indications: Atherosclerotic heart disease of [place] coronary artery without angina pectoris TAKE 1 TABLET BY MOUTH EVERYDAY AT BEDTIME 90 tablet 3 08/23/2023 09/20/2024 Discontinued (Reorder) Start: 10-21-2022 take 1 tablet by da th at bedtime Atorvastatin Calcium 80 MG Oral Tablet TAKE 1 TABLET AT BEDTIME. Quantity: 90 Refills: 3 Ordered: 21-Oct-2022 Braden Cunha APRN-SPINNERET PERSONJanine Start : 21-Oct-2022 Active azithromycin 250 mg oral tablet (5 sources) Macrolide Antimicrobial Start: 07-31-2021 azithromycin (ZITHROMAX) 250 mg tablet Take 250 mg by mouth. 07/31/2021 Active ciprofloxacin 500 mg oral tablet (5 sources) Quinolone Antimicrobial Start: 07-22-2021 take 1 tablet by mouth in the morning, then take 1 tablet by mouth at bedtime ciprofloxacin HCl (CIPRO) 500 mg tablet Take 1 tablet (500 mg total) by mouth in the morning and 1 tablet (500 mg total) before bedtime. 07/22/2021 Active clopidogrel 75 mg oral tablet (8 sources) P2Y12 Platelet Inhibitor Start: 09-20-2024 take 1 tablet by mouth once daily clopidogrel (Plavix) 75 mg tablet Indications: Atherosclerosis of [place] coronary artery of [place] heart without angina pectoris Take 1 tablet (75 mg) by mouth once daily. 90 tablet 3 09/20/2024 Active Start: 09-14-2023 End: 09-20-2024 take 1 tablet by mouth once daily clopidogrel (Plavix) 75 mg tablet Indications: Atherosclerosis of [place] coronary artery of [place] heart without angina pectoris TAKE 1 TABLET BY MOUTH ONCE DAILY. 90 tablet 3 09/11/2024 09/20/2024 Discontinued (Reorder) meloxicam 15 mg oral tablet (10 sources) Nonsteroidal Anti-inflammatory Drug Start: 07-08-2021 meloxicam (MOBIC) 15 mg tablet 07/08/2021 Active metoprolol tartrate 25 mg oral tablet (13 sources) beta-Adrenergic Maryjane Start: 10-26-2023 End: 09-20-2025 take 1 tablet by mouth twice daily metoprolol tartrate (Lopressor) 25 mg tablet Indications: Past myocardial infarction , Essential hypertension Take 1 tablet (25 mg) by mouth 2 times a day. 180 tablet 3 09/20/2024 09/20/2025 Active Start: 12-24-2022 [facility] Metoprolol Tartrate 25 MG Oral Tablet Take 1 tablet twice a day Quantity: 180 Refills: 3 Ordered: 28-Jan-2023 Alok Webber DO Start : 24-Dec-2022 Active nebulizer machine (5 sources) nebulizer breanne e 1 kit inhalation 4 times daily Active Nitro Sublingual 0.4 0.4mg (20 sources) Nitro Sublingual 0.4 0.4mg 1 Sublingual Every 5min x3 Active nitroglycerin 0.4 mg sublingual tablet (20 sources) Nitrate Vasodilator Start: 10-13-19 Nitroglycerin Active 0.4 MG SUBLINGUAL Q5M October 11, 2022 11:00pm do not exceed 3 doses per episode ondansetron 4 mg disintegrating oral tablet (16 sources) Serotonin-3 Receptor Antagonist Start: 07-25-20 take 4 mg by mouth every eight hours Ondansetron Active 4 MG PO Every 8 hours May 29, 2024 12:00am Start: 07-24-2021 ondansetron (Z OFRAN) 4 mg tablet 07/24/2021 Active Zofran Active predniSONE 20 mg oral tablet (10 sources) Start: 02-04-2023 take 2 tablets by mouth every twenty-four hours predniSONE 20 MG 2 tablets Orally Once a day for 5 days Jan, Active Start: 11-12-2022 take 2 tablets by mo [facility] every twenty-four hours predniSONE 20 MG 2 [...] End: take 1 tablet by mouth once BRILINTA 90 mg tablet Take 1 tablet (90 mg total) by mouth every 12 (twelve) hours. 06/27/2023 Active Start: 10-12-2022 End: 10-04-2023 take 1 tablet by mouth twice daily Ticagrelor (Brilinta) 90 mg Tablet Discontinued 90 MG PO Twice daily 180 October 11, 2022 11:00pm October 04, 2023 2:22pm Brilinta 90mg Ta kke as directed Active Trelegy Ellipta 100-62.5-25 MCG/INH (8 sources) Start: 10-20-2022 take 1 puff(s) by inhalation once daily Trelegy Ellipta 100-62.5-25 MCG/INH 1 puff Inhalation Once a day for 30 days Sep, Active valsartan 40 mg oral tablet (20 sources) Angiotensin 2 Receptor Maryjane Start: 02-17-2024 End: 05-25-2024 take 1 tablet by mouth once daily [...] Sig (Original) acetaminophen 325 mg oral tablet (13 sources) Start: 10-10-2022 End: 10-01-2023 take 2 tablets by mouth every six hours Acetaminophen (Tylenol) 325 mg Tablet Discontinued 650 MG PO Q6H October 09, 2022 11:00pm October 01, 2023 2:07pm acetaminophen 32 5 mg capsule Take by mouth. Active [id number] actuat albuterol 0.09 mg/actuat metered dose inhaler (20 sources) beta2-Adrenergic Agonist Start: 10-10-2022 End: 10-01-2023 take 1 puff(s) by inhalation every four hours Albuterol Sulfate Discontinued 1 PUFF INHALATION Q4H October 09, 2022 11:00pm October 01, 2023 2:07pm Start: 07-21-2021 albuterol (PRO VENTIL HFA;VENTOLIN HFA) 90 mcg/actuation inhaler 07/21/2021 Active End: 09-14-2023 take 2.5 mL by mouth [...] mg oral tablet (20 sources) Benzodiazepine Start: 06-04-2023 End: 05-05-2024 take 1 mg by mouth twice daily Alprazolam Discontinued 1 MG PO Twice daily 60 October 04, 2023 9:17am October 04, 2023 9:29am Start: 04-05-2023 ALPRAZolam 1 M G TAKE 1 TABLET BY MOUTH TWICE A DAY NEEDED FOR 30 DAYS for 30 Mar, Active Start: 02-02-2023 ALPRAZolam 1 M G TAKE 1 TABLET BY MOUTH TWICE A DAY NEEDED FOR 30 DAYS for 30 Jan, Active Start: 01-29-2023 take 1 tablet by [facility] twice daily as needed ALPRAZolam 1 MG [...] mg total) by mouth in the morning. 02/09/2022 Active methylPREDNISolone 4 mg oral tablet (5 sources) Corticosteroid Start: 10-04-2023 End: 10-26-2023 take 1 tablet by mouth once Methylprednisolone (Medrol (Maury)) 4 mg tablets,dose pack Discontinued 0 PO per package directions October 03, 2023 11:00pm October 26, 2023 1:42pm PO PER PKG DIR for 6 days promethazine hydrochloride 12.5 mg oral tablet (5 sources) Phenothiazine take 1 tablet by mouth four times daily as needed Promethazine HCl 12.5 MG 1 tablet as needed Orally 4 times per day; nausea and vomiting Not-Taking spironolactone 25 mg oral tablet (20 sources) Aldosterone Antagonist Start: 10-13-2022 End: 10-26-2023 take 25 mg by mouth once daily in the morning Spironolactone Discontinued 25 MG PO Every morning October 12, 2022 11:00pm October 26, 2023 2:02pm triamcinolone acetonide 40 mg/ml injectable suspension (20 [...] Chronic Aortic; peripheral; and visceral artery aneurysms (19 sources) Abdominal aortic aneurysm without rupture; Translations: [Abdominal aortic aneurysm, without rupture, unspecified] Onset: 03-05-2022 08-22-2023 Chronic Asthma (20 sources) Asthma without status asthmaticus; Translations: [Unspecified asthma, uncomplicated] Onset: 03-05-2022 03-05-2022 Chronic Cardiac dysrhythmias (11 sources) EKG: ventricular tachycardia; Translations: [Ventricular tachycardia seen on environmental monitoring technician] 10-11-2022 Chronic Chronic obstructive pulmonary disease and [...] Coronary arteriosclerosis; Translations: [Atherosclerotic heart disease of [place] coronary artery without angina pectoris] Onset: 08-06-2023 Chronic Disorders of lipid metabolism (14 sources) Mixed hyperlipidemia; Translations: [Mixed hyperlipidemia] Onset: 08-06-2023 09-14-2023 Chronic Essential hypertension (20 sources) Hypertensive disorder; Translations: [Essential (primary) hypertension] Onset: 03-05-2022 10-10-2022 Chronic Genitourinary symptoms and ill-defined conditions (4 sources) Dysuria; Translations: [Dysuria] Episodic Heart valve disorders (3 sources) Heart murmur; Translations: [Cardiac murmur, unspecified] Onset: 09-20-2024 09-20-2024 Episodic Hypertension with complications and secondary hypertension [...] 03-16-2019 Chronic Other aftercare (1 source) Other terminal 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 operator (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; Translations: [OTH PRIVATE INQUIRY AGENT CURRENT DRUG THERAPY] Onset: 10-13-2022 Episodic Other circulatory disease (2 sources) Elevated blood-pressure reading without diagnosis of hypertension; Translations: [Elevated blood-pressure reading, without diagnosis of hypertension] Episodic Other circulatory disease (4 sources) Carotid bruit; Translations: [Other specified symptoms and signs involving the circulatory and respiratory systems] Onset: 03-09-2024 03-09-2024 Episodic Other connective tissue disease (20 sources) Muscle pain; Translations: [Myalgia, unspecified site] 10-01-2023 Episodic Other connective tissue disease (3 sources) [...] [Hypoxemia] 10-13-2022 Episodic Other lower respiratory disease (1 source) Personal history of pneumonia (recurrent); Translations: [PERSONAL HX OF PNEUMONIA RECURRENT] Onset: 10-13-2022 Episodic Other lower respiratory disease (2 sources) Dyspnea; Translations: [Other forms of dyspnea] Episodic Other lower respiratory disease (4 sources) Other nonspecific abnormal finding of lung field; Translations: [Other nonspecific abnormal finding of lung field] Onset: 09-20-2024 Episodic Other lower respiratory disease (9 sources) Lung mass; Translations: [Other nonspecific abnormal finding of lung field] Onset: 03-05-2022 03-05-2022 Episodic Other non-traumatic joint disorders (7 sources) [...] Chronic Other nutritional; endocrine; and metabolic disorders (12 sources) Body mass index 30+ - obesity; Translations: [Obesity, unspecified] Onset: 03-05-2022 09-14-2023 Chronic Other nutritional; endocrine; and metabolic disorders [...] Other sleep disorders Chronic Residual codes; unclassified (5 sources) Dyssomnia; Translations: [Other sleep disorders] Onset: 07-29-2015 03-05-2022 Chronic Residual codes; unclassified (6 sources) Tobacco use; Translations: [Tobacco use disorder] Episodic Residual codes; unclassified (13 sources) Tobacco user; Translations: [Tobacco use] Onset: 07-29-2015 10-10-2022 Episodic Residual codes; unclassified (19 sources) Tobacco dependence syndrome; Translations: [Tobacco use] Episodic Residual codes; unclassified (1 source) Pain, unspecified; Translations: [Pain, unspecified] Onset: 09-14-2024 Episodic Substance-related disorders (20 sources) Mental disorder [...] adverse effect in therapeutic use] Onset: 05-04-2018 Unclassified (1 source) AAA, CT abd/pelvis at [facility], carotids [facility] Onset: 09-14-2024 Unclassified (1 source) Patient encounter status 09-20-2024 Urinary tract infections (1 source) Acute cystitis without hematuria Episodic Past or Other Problems Problem Classification Problem Date Documented Da te Episodic/Chronic Cardiac dysrhythmias (6 sources) Sinus tachycardia; Translations: [Other specified cardiac dysrhythmias] Onset: 08-06-2023 Resolved: 09-14-2023 09-14-2023 Episodic E Codes: Adverse effects of medical drugs (5 sources) Adverse reaction to bacterial vaccines; Translations: [Adverse effect of other bacterial vaccines, initial encounter] Onset: 05-04-2018 03-05-2022 Episodic Fluid and electrolyte disorders (1 source) Dehydration; Translations: [DEHYDRATION] Onset: 07-16-2022 Episodic Malaise and fatigue (16 sources) Fatigue; Translations: [Other fatigue] Onset: 03-16-2019 03-05-2022 Episodic Nausea and vomiting (20 sources) Nausea; Translations: [Nausea] Onset: 03-05-2022 Episodic Noninfectious gastroenteritis (1 source) Noninfective gastroenteritis and colitis, unspecified; Translations: [NONINFECTIVE GE AND COLITIS UNS] Onset: 07-12-2022 Episodic Other circulatory disease (5 sources) Increased diastolic arterial pressure; Translations: [Elevated [...] 08-01-2015 03-05-2022 Episodic Other lower respiratory disease (14 sources) Dyspnea on exertion; Translations: [Other forms of dyspnea] Onset: 03-05-2022 03-05-2022 Episodic Other lower respiratory disease (3 sources) Shortness of breath; Translations: [SHORTNESS OF BREATH] Onset: 02-03-2022 Episodic Other non-traumatic joint disorders (20 sources) Joint pain; Translations: [Pain in unspecified joint] Onset: 03-05-2022 10-01-2023 Episodic Other non-traumatic joint disorders (2 sources) Arthralgia of the pelvic region and thigh; Translations: [Pain in joint, pelvic region and thigh] Onset: 08-24-2016 Episodic Other non-traumatic joint disorders (5 sources) Pain of right shoulder joint; Translations: [Pain in right shoulder] Onset: 03-05-2022 03-05-2022 Episodic Pleurisy; pneumothorax; pulmonary collapse (20 sources) Atelectasis; Translations: [Atelectasis] Onset: 11-03-2022 Episodic Residual codes; unclassified (16 sources) Contact with and (suspected) exposure to [...] Test Name Value Interpretation Reference Range Facility ECG 12 [place] 09-20-2024 Sinus tachycardia, incomplete right bundle branch block, abnormal ECG [facility] Work Phone: CT ANGIO [place] [address] CT Scan Report Signed Patient: HECTOR GASPAR MR#: [id number] : 1960 Acct:[id number] Age/Sex: 64 / M ADM Date: 09/11/24 Loc: CT Attending Dr: Rom Pierre M.D. Ordering Physician: Rom Pierre M.D. Date of Service: 09/11/24 Procedure(s): CT angio abdomen pelvis Accession Number(s): [id number] cc: Seymour Harper M.D. [place] [id number] Patient Name: HECTOR GASPAR MRN: [id number] date: 1960 Sex: M Assigned Patient Location: CT Current Patient Location: CT Accession/Order Number: [id number] Exam Date: 09/11/2024 13:03 Report Date: 09/11/2024 15:57 At the request of: ROM PIERRE Procedure: CT angio abdomen pelvis EXAM: CT angio abdomen pelvis HISTORY: Aortic aneurysm COMPARISON: Ultrasound from 07/15/2023 TECHNIQUE: CT angio abdomen pelvis FINDINGS: VASCULATURE: DISTAL DESCENDING THORACIC AORTA: Moderate atherosclerotic disease without a significant abnormality. ABDOMINAL AORTA: Severe atherosclerotic disease. There is a largely thrombosed infrarenal abdominal aortic aneurysm measuring 5.2 x 5.0 cm. When compared to the ultrasound from 2022, this has not significantly changed. CELIAC AXIS: No significant abnormality. SMA: Mild atherosclerotic narrowing of the proximal segment. RIGHT RENAL: No significant abnormality. Small accessory right renal artery. LEFT RENAL: No significant abnormality. JONI: Not well opacified at its origin but perfused via collateral flow. RIGHT ILIAC / PROXIMAL FEMORAL ARTERIES: Moderate atherosclerotic disease. Ectasia of the right common iliac artery to 1.9 cm (image 135 of series 4). LEFT ILIAC / PROXIMAL FEMORAL ARTERIES: Moderate atherosclerotic disease. Ectasia of the left common iliac artery to 1.8 cm. LOWER CHEST: LUNG BASES / PLEURA: Normal. DISTAL ESOPHAGUS: Normal. HEART / VESSELS: Moderate coronary artery disease. ABDOMEN and PELVIS: LIVER: Normal. BILIARY TRACT: Normal. GALLBLADDER: No abnormality. PANCREAS: Normal. SPLEEN: Normal. ADRENALS: Normal. KIDNEYS: Normal. LYMPH NODES: None enlarged. STOMACH / SMALL BOWEL: No abnormality. COLON / APPENDIX: Colonic diverticulosis PERITONEUM / MESENTERY: Normal. RETROPERITONEUM: Normal. OTHER VESSELS: No significant abnormality. URINARY BLADDER: Multiple urinary bladder diverticula. REPRODUCTIVE ORGANS: No abnormality. BODY WALL: No significant abnormality. MUSCULOSKELETAL: No acute abnormality. Mild degenerative arthrosis of both hips. Multilevel degenerative changes of the thoracolumbar spine. CT/CT angio abdomen pelvis IMPRESSION: 1. Largely thrombosed infrarenal abdominal aortic aneurysm measuring up to 5.2 cm, not significantly changed when compared to the ultrasound from 07/15/2023. 2. Bilateral common iliac artery ectasia and other findings as above. Electronically authenticated by: AUGUSTA LEONARDO Date: 09/11/2024 15:57 Dictated By: Augusta Leonardo M.D. Signed By: 09/11/24 1600 DD/ 1557 TD/TT: Insurance Case Manager: AAMIR Radiology, Radiologterrell pugh MD - 09/12/2024 [place] [address] CT Scan Report Signed Patient: HECTOR GASPAR MR#: [id number] : 1960 Acct:[id number] Age/Sex: 64 / M ADM Date: 09/11/24 Loc: CT Attending Dr: Rom Pierre M.D. Ordering Physician: Rom Pierre M.D. Date of Service: 09/11/24 Procedure(s): CT angio abdomen pelvis Accession Number(s): [id number] cc: Semyour Harper M.D. [place] [id number] Patient Name: HECTOR GASPAR MRN: [facility]:[id number] date: 1960 Sex: M Assigned Patient Location: CT Current Patient Location: CT Accession/Order Number: [id number] Exam Date: 09/11/2024 13:03 Report Date: 09/11/2024 15:57 At the request of: ROM PIERRE Procedure: CT angio abdomen pelvis EXAM: CT angio abdomen pelvis HISTORY: Aortic aneurysm COMPARISON: Ultrasound from 07/15/2023 TECHNIQUE: CT angio abdomen pelvis FINDINGS: VASCULATURE: DISTAL DESCENDING THORACIC AORTA: Moderate atherosclerotic disease without a significant abnormality. ABDOMINAL AORTA: Severe atherosclerotic disease. There is a largely thrombosed infrarenal abdominal aortic aneurysm measuring 5.2 x 5.0 cm. When compared to the ultrasound from 2022, this has not significantly changed. CELIAC AXIS: No significant abnormality. SMA: Mild atherosclerotic narrowing of the proximal segment. RIGHT RENAL: No significant abnormality. Small accessory right renal artery. LEFT RENAL: No significant abnormality. JONI: Not well opacified at its origin but perfused via collateral flow. RIGHT ILIAC / PROXIMAL FEMORAL ARTERIES: Moderate atherosclerotic disease. Ectasia of the right common iliac artery to 1.9 cm (image 135 of series 4). LEFT ILIAC / PROXIMAL FEMORAL ARTERIES: Moderate atherosclerotic disease. Ectasia of the left common iliac artery to 1.8 cm. LOWER CHEST: LUNG BASES / PLEURA: Normal. DISTAL ESOPHAGUS: Normal. HEART / VESSELS: Moderate coronary artery disease. ABDOMEN and PELVIS: LIVER: Normal. BILIARY TRACT: Normal. GALLBLADDER: No abnormality. PANCREAS: Normal. SPLEEN: Normal. ADRENALS: Normal. KIDNEYS: Normal. LYMPH NODES: None enlarged. STOMACH / SMALL BOWEL: No abnormality. COLON / APPENDIX: Colonic diverticulosis PERITONEUM / MESENTERY: Normal. RETROPERITONEUM: Normal. OTHER VESSELS: No significant abnormality. URINARY BLADDER: Multiple urinary bladder diverticula. REPRODUCTIVE ORGANS: No abnormality. BODY WALL: No significant abnormality. MUSCULOSKELETAL: No acute abnormality. Mild degenerative arthrosis of both hips. Multilevel degenerative changes of the thoracolumbar spine. CT/CT angio abdomen pelvis IMPRESSION: 1. Largely thrombosed infrarenal abdominal aortic aneurysm measuring up to 5.2 cm, not significantly changed when compared to the ultrasound from 07/15/2023. 2. Bilateral common iliac artery ectasia and other findings as above. Electronically authenticated by: AUGUSTA LEONARDO Date: 09/11/2024 15:57 Dictated By: Augusta Leonardo M.D. Signed By: 09/11/24 1600 DD/ 1557 TD/TT: Insurance Case Manager: [facility] Radiology Study observation (narrative) [facility] CT ANGIO ABDOMEN PELVISOrder ed By: Radiologist Radiology on 09-11-2024 [facility] Work Phone: Basophils Auto (Bld) [#/Vol] on 05-07-2024 Basophils (Bld) [#/Vol] 0.0 10 3/uL 0.0-0.1 [facility] Basophils/100 WBC Auto (Bld) on 05-07-2024 Basophils/100 WBC (Bld) 0.6 % 0.2-2.0 [facility] Eosinophils/100 WBC Auto (Bl d)on 05-07-2024 Eosinophils/100 WBC (Bld) 3.8 % 0.9-7.0 [facility] Erythrocyte distribution wid th Auto (RBC) [Ratio]on 05-07-2024 Erythrocyte distribution width (RBC) [Ratio] 12.4 % 11.0-15.0 [facility] Estimated glomerular filtrat ion rate (GFR) non- Americanon 05-07-2024 GFR/1.73 sq M.predicted among non-blacks MDRD (S/P/Bld) [Vol rate/Area] 52 mL/min/{1.73_m2} Low >=60 mL/min/1.7 3m 2 [facility] Globulin Calc (S) [Mass/Vol] on 05-07-2024 Globulin (S) [Mass/Vol] 3.7 g/dL [facility] Hematocrit Auto (Bld) [Volum e fraction]on 05-07-2024 Hematocrit (Bld) [Volume fraction] 39.8 % Low 42.0-54.0 [facility] Hemoglobin [Mass/volume] in Bloodon 05-07-2024 Hemoglobin (Bld) [Mass/Vol] 13.8 g/dL Low 14.0-18.0 [facility] INR in Platelet poor plasma by Coagulation assayon 05-07-2024 INR Coag (PPP) [Relative time] 0.96 {INR} [facility] Comment on above: DESIRED INR:2.0-3.0 CONDITIONS NOT LISTED BELOW2.5-3.5 FOR PROSTHETIC HEART VALVE REPLACEMENT2.5-3.5 RECURRENT THROMBOSIS Laboratory - Chemistry and C hemistry - challengeon 05-07-2024 Albumin [Mass/Vol] 3.7 g/dL 3.4-5.0 [facility] ALP [Catalytic activity/Vol] 67 U/L 46-116 [facility] ALT [Catalytic activity/Vol] 26 U/L 16-63 [facility] AST [Catalytic activity/Vol] 19 U/L 15-37 [facility] Bilirubin [Mass/Vol] 0.4 mg/dL 0.2-1.0 [facility] Calcium [Mass/Vol] 9.3 mg/dL 8.5-10.1 [facility] Chloride [Moles/Vol] 104 mmol/L 98-107 [facility] CO2 [Moles/Vol] 27.0 mmol/L 21.0-32.0 [facility] Creatinine [Mass/Vol] 1.38 mg/dL High 0.70-1.30 [facility] GFR/1.73 sq M.predicted MDRD (S/P/Bld) [Vol rate/Area] mL/min/{1.73_m2} >=60 mL/min/1.7 3m 2 [facility] Glucose [Mass/Vol] 111 mg/dL High 74-106 [facility] Natriuretic peptide B (Bld) [Mass/Vol] 87.0 pg/mL <=900.0 [facility] Potassium [Moles/Vol] 4.1 mmol/L 3.5-5.1 [facility] Protein [Mass/Vol] 7.4 g/dL 6.4-8.2 [facility] Sodium [Moles/Vol] 141 mmol/L 136-145 [facility] Urea nitrogen [Mass/Vol] 18.0 mg/dL 7.0-18.0 [facility] Urea nitrogen/Creatinine [Mass ratio] 13.0 mg/mg [facility] Laboratory - Hematology and Cell countson 05-07-2024 Immature granulocytes/100 WBC (Bld) 0.2 % 0.0-0.5 [facility] Leukocytes [#/volume] correc kal for nucleated erythrocytes in Blood by Automated counon 05-07-2024 WBC corrected for nucl RBC Auto (Bld) [#/Vol] 4.7 10 3/uL 4.0-11.0 [facility] Lymphocytes Auto (Bld) [#/Vo l]on 05-07-2024 Lymphocytes (Bld) [#/Vol] 1.6 10 3/uL 1.2-3.8 [facility] Lymphocytes/100 WBC Auto (Bl d)on 05-07-2024 Lymphocytes/100 WBC (Bld) 34.4 % 20.5-60.0 [facility] MCH Auto (RBC) [Entitic mass ]on 05-07-2024 MCH (RBC) [Entitic mass] 30.9 pg 25.9-34.0 [facility] MCHC Auto (RBC) [Mass/Vol]on 05-07-2024 MCHC (RBC) [Mass/Vol] 34.7 g/dL 29.9-35.2 [facility] MCV Auto (RBC) [Entitic vol] on 05-07-2024 MCV (RBC) [Entitic vol] 89.2 fL 80.0-94.0 [facility] Monocytes Auto (Bld) [#/Vol] on 05-07-2024 Monocytes (Bld) [#/Vol] 0.6 10 3/uL 0.3-0.8 [facility] Monocytes/100 WBC Auto (Bld) on 05-07-2024 Monocytes/100 WBC (Bld) 12.4 % High 1.7-12.0 [facility] Neutrophils Auto (Bld) [#/Vo l]on 05-07-2024 Neutrophils (Bld) [#/Vol] 2.3 10 3/uL 1.4-6.5 [facility] Neutrophils/100 WBC Auto (Bl d)on 05-07-2024 Neutrophils/100 WBC (Bld) 48.6 % 43.0-75.0 [facility] No Panel Informationon 05-07 Eosinophils # (Auto) 0.2 10 3/uL 0.0-0.7 [facility] Immature Granulocyte # (Auto) 0.01 10 3/uL 0.00-0.03 [facility] Troponin I High Sensitivity 15.2 pg/mL 4.0-76.1 [facility] Comment on above: CUT-OFF POINTS HAVE BEEN [...] (Bld) [Entitic vol] 9.4 fL Low 9.5-13.5 [facility] Platelets Auto (Bld) [#/Vol] on 05-07-2024 Platelets (Bld) [#/Vol] 212 10 3/uL 150-450 [facility] Prothrombin time (PT)on 04-25 PT Coag (PPP) [Time] 10.2 s 9.0-11.6 [facility] RBC Auto (Bld) [#/Vol]on RBC (Bld) [#/Vol] 4.46 10 6/uL Low 4.70-6.10 [facility] Serum or plasma albumin/glob ulin mass ratioon 05-07-2024 Albumin/Globulin [Mass ratio] 1.0 {ratio} [facility] Serum or plasma anion gap de terminationon 05-07-2024 Anion gap [Moles/Vol] 14.1 mmol/L [facility] CT CTA ABD AND PELVISon 02-23 [...] Marie MD on 03/07/2024 12:[address] [facility] Basophils Auto (Bld) [#/Vol] on 10-09-2023 Basophils (Bld) [#/Vol] 0.0 10 3/uL 0.0-0.1 [facility] Basophils/100 WBC Auto (Bld) on 10-09-2023 Basophils/100 WBC (Bld) 0.6 % 0.2-2.0 [facility] Eosinophils/100 WBC Auto (Bl d)on 10-09-2023 Eosinophils/100 WBC (Bld) 3.9 % 0.9-7.0 [facility] Erythrocyte distribution wid th Auto (RBC) [Ratio]on 10-09-2023 Erythrocyte distribution width (RBC) [Ratio] 13.2 % 11.0-15.0 [facility] Estimated glomerular filtrat ion rate (GFR) non- Americanon 10-09-2023 GFR/1.73 sq M.predicted among non-blacks MDRD (S/P/Bld) [Vol rate/Area] 45 mL/min/{1.73_m2} >=60 [facility] Globulin Calc (S) [Mass/Vol] on 10-09-2023 Globulin (S) [Mass/Vol] 3.4 g/dL [facility] Hematocrit Auto (Bld) [Volum e fraction]on 10-09-2023 Hematocrit (Bld) [Volume fraction] 36.4 % 42.0-54.0 [facility] Hemoglobin [Mass/volume] in Bloodon 10-09-2023 Hemoglobin (Bld) [Mass/Vol] 12.1 g/dL 14.0-18.0 [facility] Laboratory - Chemistry and C hemistry - challengeon 10-09-2023 Albumin [Mass/Vol] 3.5 g/dL 3.4-5.0 [facility] ALP [Catalytic activity/Vol] 64 U/L 46-116 [facility] ALT [Catalytic activity/Vol] 35 U/L 16-63 [facility] AST [Catalytic activity/Vol] 24 U/L 15-37 [facility] Bilirubin [Mass/Vol] 0.4 mg/dL 0.2-1.0 [facility] Calcium [Mass/Vol] 9.0 mg/dL 8.5-10.1 [facility] Chloride [Moles/Vol] 102 mmol/L 98-107 [facility] CO2 [Moles/Vol] 27.8 mmol/L 21.0-32.0 [facility] Creatinine [Mass/Vol] 1.58 mg/dL 0.70-1.30 [facility] GFR/1.73 sq M.predicted MDRD (S/P/Bld) [Vol rate/Area] 54 mL/min/{1.73_m2} >=60 [facility] Glucose [Mass/Vol] 96 mg/dL 74-106 [facility] Potassium [Moles/Vol] 4.3 mmol/L 3.5-5.1 [facility] Protein [Mass/Vol] 6.9 g/dL 6.4-8.2 [facility] Sodium [Moles/Vol] 136 mmol/L 136-145 [facility] Urea nitrogen [Mass/Vol] 26.0 mg/dL 7.0-18.0 [facility] Urea nitrogen/Creatinine [Mass ratio] 16.5 mg/mg [facility] Laboratory - Hematology and Cell countson 10-09-2023 Immature granulocytes/100 WBC (Bld) 0.6 % 0.0-0.5 [facility] Leukocytes [#/volume] correc kal for nucleated erythrocytes in Blood by Automated counon 10-09-2023 WBC corrected for nucl RBC Auto (Bld) [#/Vol] 5.2 10 3/uL 4.0-11.0 [facility] Lymphocytes Auto (Bld) [#/Vo l]on 10-09-2023 Lymphocytes (Bld) [#/Vol] 1.5 10 3/uL 1.2-3.8 [facility] Lymphocytes/100 WBC Auto (Bl d)on 10-09-2023 Lymphocytes/100 WBC (Bld) 28.9 % 20.5-60.0 [facility] MCH Auto (RBC) [Entitic mass ]on 10-09-2023 MCH (RBC) [Entitic mass] 30.9 pg 25.9-34.0 [facility] MCHC Auto (RBC) [Mass/Vol]on 10-09-2023 MCHC (RBC) [Mass/Vol] 33.2 g/dL 29.9-35.2 [facility] MCV Auto (RBC) [Entitic vol] on 10-09-2023 MCV (RBC) [Entitic vol] 93.1 fL 80.0-94.0 [facility] Monocytes Auto (Bld) [#/Vol] on 10-09-2023 Monocytes (Bld) [#/Vol] 0.8 10 3/uL 0.3-0.8 [facility] Monocytes/100 WBC Auto (Bld) on 10-09-2023 Monocytes/100 WBC (Bld) 16.1 % 1.7-12.0 [facility] Neutrophils Auto (Bld) [#/Vo l]on 10-09-2023 Neutrophils (Bld) [#/Vol] 2.6 10 3/uL 1.4-6.5 [facility] Neutrophils/100 WBC Auto (Bl d)on 10-09-2023 Neutrophils/100 WBC (Bld) 49.9 % 43.0-75.0 [facility] No Panel Informationon 10-08 Eosinophils # (Auto) 0.2 10 3/uL 0.0-0.7 [facility] Immature Granulocyte # (Auto) 0.03 10 3/uL 0.00-0.03 [facility] Platelet mean volume Auto (B ld) [Entitic vol]on 10-09-2023 Platelet mean volume (Bld) [Entitic vol] 9.4 fL 9.5-13.5 [facility] Platelets Auto (Bld) [#/Vol] on 10-09-2023 Platelets (Bld) [#/Vol] 228 10 3/uL 150-450 [facility] RBC Auto (Bld) [#/Vol]on RBC (Bld) [#/Vol] 3.91 10 6/uL 4.70-6.10 [facility] Serum or plasma albumin/glob ulin mass ratioon 10-09-2023 Albumin/Globulin [Mass ratio] 1.0 {ratio} [facility] Serum or plasma anion gap de terminationon 10-09-2023 Anion gap [Moles/Vol] 10.5 mmol/L [facility] CT CTA ABD AND PELVISon 09-23 CT [...] Marie MD on 10/04/2023 3:[address] [facility] Office Visit (Cardiology)on 12-24-2022 Follow-up visit Diagnoses/Problems Assessed Coronary artery disease involving sitka coronary artery of sitka heart without angina pectoris (414.01) (I25.10) Preoperative [...] we can help. You may also call [phone] for free resources and assistance.; Status:Complete - [...] December. 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 details of which are unknown Pulmonary [...] MG Sublingu (more content not included)... Normal [employer] Tobacco Screening.on 023 Fall risk assessment c) Not medically indicated -[facility] [address] DO Work Phone: Tobacco use status CP a) Yes [facility] [facility] [address] DO Work Phone: Tobacco Screening. Yes [facility] [facility] 250 DO Work Phone: Cardiovasc Arrhythmia Result son 11-02-2022 Cardiovasc Arrhythmia Results Reason For Visit Reason for Visit: Holter Monitor: HECTOR is here for the application of a 48 hour Holter monitor. Ordering Physician: JANINE CUNHA Diagnosis: CAD SINUS PAUSE [facility] equipment agreement signed. HECTOR understands monitor is to be returned on: 11-03-22 Monitor number [id number] applied. Holter monitor returned and downloaded. Procedure [...] symptomatic Diagnosis/Problems Assessed Coronary artery disease involving sitka coronary artery of sitka heart without angina pectoris (414.01) (I25.10) Sinus pause (426.6) (I45.5) Future Appointments Date/TimeProviderSpecialt ySite 01/19/2023 02:30 Alok Kirkland DOCardiology703 [facility] 2 [address] 250 DO Signatures Electronically signed by : Mallory Fan MA; Nov 02 2022 2:10PM EST (Author) Electronically signed by : Mohsen Gonsalves MD; Nov 08 2022 5:34PM EST (Author) Normal [facility] Calcium [Mass/volume] in Ser um or PlasmaOrdered By: Janine Cunha on 10-28-2022 Calcium [Mass/Vol] 9.5 mg/dL 8.6-10.3 [facility] Carbon dioxide, total [Moles /volume] in Serum or PlasmaOrdered By: Janine Cunha on 10-28-2022 CO2 [Moles/Vol] 25.8 mmol/L 21.0-31.0 [facility] Chloride [Moles/volume] in S lisa or PlasmaOrdered By: Janine Cunha on 10-28-2022 Chloride [Moles/Vol] 107 mmol/L 98-107 [facility] Creatinine [Mass/volume] in Serum or PlasmaOrdered By: Janine Cunha on 10-28-2022 Creatinine [Mass/Vol] 1.16 mg/dL 0.70-1.30 [facility] Glucose [Mass/volume] in Ser um or PlasmaOrdered By: Janine Cunha on 10-28-2022 Glucose [Mass/Vol] 100 mg/dL 70-100 [facility] Comment on above: ADA recommended refe rence rangeRandom Glucose Reference Range is dependent on time and content of last meal. Glucose of more than 200 mg/dL in a nonstressed, ambulatory subject supports the diagnosis of Diabetes Mellitus. No Panel InformationOrdered By: Janine Cunha on 10-28-2022 Estimated GFR (CKD-EPI) > 60.0 mL/Min [facility] Creatinine Clearance (Chem N/A [facility] No Panel Informationon 10-28 > 60.0 Normal [facility] [address] DO Work Phone: [phone] 11.6\S\11.6 Normal 6.0-15.0 [facility]ies[facility] [address] DO Work Phone: [phone] 9.5\S\9.5 Normal 8.6-10.3 [facility] Work Phone: [phone] Comment on above: PERFORMED BY:[place] [id number] [place] [place], [place] [id number] MEDICAL DIRECTORJANETTE DE LA FUENTE M.D. 25.8\S\25.8 Normal 21.0-31.0 [facility] DO Work Phone: [phone] 107\S\107 Normal 98-107 [facility] 600 DO Work Phone: [phone] 4.4\S\4.4 Normal 3.5-5.1 [facility] DO Work Phone: [phone] 140\S\140 Normal 136-145 [facility] DO Work Phone: [phone] 1.16\S\1.16 Normal 0.70-1.30 [facility] [address] DO Work Phone: 27\S\27 above high threshold 7-25 [facility] DO Work Phone: 100\S\100 Normal 70-100 [facility] DO Work Phone: Comment on above: Random Glucose Refer ence Range is dependent on time and content of last meal. Glucose of more than 200 mg/dL in a nonstressed, ambulatory subject supports the diagnosis of Diabetes Mellitus. ADA recommended reference range Potassium [Moles/volume] in Serum or PlasmaOrdered By: Janine Cunha on 10-28-2022 Potassium [Moles/Vol] 4.4 mmol/L 3.5-5.1 [facility] Serum or plasma anion gap de terminationOrdered By: Janine Cunha on 10-28-2022 Anion gap [Moles/Vol] 11.6 mmol/L 6.0-15.0 [facility] Sodium [Moles/volume] in Ser um or PlasmaOrdered By: Janine Cunha on 10-28-2022 Sodium [Moles/Vol] 140 mmol/L 136-145 [facility] Urea nitrogen [Mass/volume] in Serum or PlasmaOrdered By: Janine Cunha on 10-28-2022 Urea nitrogen [Mass/Vol] 27 mg/dL 7-25 [facility] Tobacco Screening.on 023 Adult depression screening assessment No [facility] [facility] 250 DO Work Phone: Fall risk assessment a) No falls within the last year [facility] 250 DO Work Phone: Tobacco use status CPHS a) Yes [facility] 250 DO Work Phone: Tobacco Screening. Yes [facility] [facility] [address] DO Work Phone: Calcium [Mass/volume] in Ser um or PlasmaOrdered By: Rubén Tatum on 10-12-2022 Calcium [Mass/Vol] 9.0 mg/dL 8.6-10.3 [facility] Carbon dioxide, total [Moles /volume] in Serum or PlasmaOrdered By: Ruébn Tatum on 10-12-2022 CO2 [Moles/Vol] 25.2 mmol/L 21.0-31.0 [facility] Chloride [Moles/volume] in S lisa or PlasmaOrdered By: Rubén Tatum on 10-12-2022 Chloride [Moles/Vol] 107 mmol/L 98-107 [facility] Creatinine [Mass/volume] in Serum or PlasmaOrdered By: Rubén Tatum on 10-12-2022 Creatinine [Mass/Vol] 1.09 mg/dL 0.70-1.30 [facility] Glucose [Mass/volume] in Ser um or PlasmaOrdered By: Rubén Tatum on 10-12-2022 Glucose [Mass/Vol] 100 mg/dL 74-109 [facility] Comment on above: ADA recommended refe rence rangeRandom Glucose Reference Range is dependent on time and content of last meal. Glucose of more than 200 mg/dL in a nonstressed, ambulatory subject supports the diagnosis of Diabetes Mellitus. Laboratory - Chemistry and C hemistry - challengeOrdered By: Rubén Tatum on 10-12-2022 GFR/1.73 sq M.predicted MDRD (S/P/Bld) [Vol rate/Area] mL/min/{1.73_m2} [facility] Magnesium [Mass/volume] in S lisa or PlasmaOrdered By: Rubén Tatum on 10-12-2022 Magnesium [Mass/Vol] 2.2 mg/dL 1.9-2.7 [facility] Natriuretic peptide B [Mass/ Vol]Ordered By: Rubén Tatum on 10-12-2022 Natriuretic peptide B (Bld) [Mass/Vol] 91.0 pg/mL 5-100 [facility] No Panel InformationOrdered By: Rubén Tatum on 10-12-2022 Pharmacy Creatinine Clearance (Chem 79.69 [facility] Potassium [Moles/volume] in Serum or PlasmaOrdered By: Rubén Tatum on 10-12-2022 Potassium [Moles/Vol] 4.2 mmol/L 3.5-5.1 [facility] Serum or plasma anion gap de terminationOrdered By: Rubén Tatum on 10-12-2022 Anion gap [Moles/Vol] 12.0 mmol/L 6.0-15.0 [facility] Sodium [Moles/volume] in Ser um or PlasmaOrdered By: Rubén Tatum on 10-12-2022 Sodium [Moles/Vol] 140 mmol/L 136-145 [facility] Urea nitrogen [Mass/volume] in Serum or PlasmaOrdered By: Rubén Tatum on 10-12-2022 Urea nitrogen [Mass/Vol] 23 mg/dL 7 [facility] Alanine aminotransferase [En zymatic activity/volume] in Serum or PlasmaOrdered By: Rubén Tatum on 10-11-2022 ALT [Catalytic activity/Vol] 18 U/L 7 [facility] Albumin [Mass/volume] in Ser um or Plasma by Bromocresol green (BCG) dye binding methoOrdered By: Rubén Tatum on 10-11-2022 Albumin BCG dye [Mass/Vol] 3.9 g/dL 3.5-5.7 [facility] Alkaline phosphatase [Enzyma tic activity/volume] in Serum or PlasmaOrdered By: Rubén Tatum on 10-11-2022 ALP [Catalytic activity/Vol] 46 U/L 34-104 [facility] Aspartate aminotransferase [ Enzymatic activity/volume] in Serum or PlasmaOrdered By: Rubén Tatum on 10-11-2022 AST [Catalytic activity/Vol] 30 U/L 13-39 [facility] Basophils Auto (Bld) [#/Vol] Ordered By: Galo eDnt on 10-11-2022 Basophils (Bld) [#/Vol] 0.0 10*3/uL 0.0-0.2 [facility] Basophils/100 WBC Auto (Bld) Ordered By: Galo Dent on 10-11-2022 Basophils/100 WBC (Bld) 0.5 % . [facility] Bilirubin.total [Mass/volume ] in Serum or PlasmaOrdered By: Rubén Tatum on 10-11-2022 Bilirubin [Mass/Vol] 0.4 mg/dL 0.3-1.0 [facility] Cholesterol [Mass/volume] in Serum or PlasmaOrdered By: Rubén Tatum on 10-11-2022 Cholesterol [Mass/Vol] 221 mg/dL 140-200 [facility] Comment on above: Chol less than 200 m g/dl low riskChol 201-239 mg/dl borderline riskChol 240 mg/dl and greater high risk Cholesterol in LDL Calc [Mas s/Vol]Ordered By: Rubén Tatum on 10-11-2022 Cholesterol in LDL [Mass/Vol] 149 mg/dL 0-100 [facility] Comment on above: LDL ATP III CLASSIFI CATIONLDL less than 100 mg/dL OptimalLDL 100-129 mg/dL Near or above optimalLDL 130-159 mg/dL Borderline highLDL 160-189 mg/dL HighLDL greater than 189 mg/dL Very high Cholesterol in VLDL Calc [Ma ss/Vol]Ordered By: Rubén Tatum on 10-11-2022 Cholesterol in VLDL [Mass/Vol] 30 mg/dL [facility] Eosinophils Auto (Bld) [#/Vo l]Ordered By: Galo Dent on 10-11-2022 Eosinophils (Bld) [#/Vol] 0.2 10*3/uL 0.0-0.45 [facility] Eosinophils/100 WBC Auto (Bl d)Ordered By: Galo Dent on 10-11-2022 Eosinophils/100 WBC (Bld) 3.7 % . [facility] Erythrocyte distribution wid th Auto (RBC) [Ratio]Ordered By: Galo Dent on 10-11-2022 Erythrocyte distribution width (RBC) [Ratio] 14.9 % 12.0-14.8 [facility] Globulin Calc (S) [Mass/Vol] Ordered By: Rubén Tatum on 10-11-2022 Globulin (S) [Mass/Vol] 2.5 g/dL [facility] Glucose mean value [Mass/vol ume] in Blood Estimated from glycated hemoglobinOrdered By: Galo Dent on 10-11-2022 Average glucose Estimated from glycated hemoglobin (Bld) [Mass/Vol] 120 mg/dL [facility] Hematocrit Auto (Bld) [Volum e fraction]Ordered By: Galo Dent on 03-19-2023 Hematocrit (Bld) [Volume fraction] 37.7 % 38.8-50.0 [facility] Hemoglobin A1c percentageOrd ered By: Galo Dent on 10-11-2022 HbA1c (Bld) [Mass fraction] 5.8 % 4.3-5.6 [facility] Comment on above: Increased risk for d iabetes: 5.7 - 6.4diabetes: >6.4glycemic control for adults with diabetes: <7.0 Hemoglobin [Mass/volume] in BloodOrdered By: Galo Dent on 10-11-2022 Hemoglobin (Bld) [Mass/Vol] 12.7 g/dL 13.0-17.0 [facility] Laboratory - CoagulationOrde red By: Galo Dent on 10-11-2022 PT Coag (PPP) [Time] 11.3 s 9.0-12.9 [facility] Leukocytes [#/volume] correc kal for nucleated erythrocytes in Blood by Automated counOrdered By: Galo Dent on 10-11-2022 WBC corrected for nucl RBC Auto (Bld) [#/Vol] 6.6 10*3/uL 4.1-10.5 [facility] Lymphocytes Auto (Bld) [#/Vo l]Ordered By: Galo Dent on 10-11-2022 Lymphocytes (Bld) [#/Vol] 1.4 10*3/uL 1.00-4.8 [facility] Lymphocytes/100 WBC Auto (Bl d)Ordered By: Galo Dent on 10-11-2022 Lymphocytes/100 WBC (Bld) 21.8 % . [facility] [facility] MCH Auto (RBC) [Entitic mass ]Ordered By: Galo Dent on 10-11-2022 MCH (RBC) [Entitic mass] 30.1 pg 27.5-35.2 [facility] MCHC Auto (RBC) [Mass/Vol]Or dered By: Galo Dent on 10-11-2022 MCHC (RBC) [Mass/Vol] 33.7 g/dL 32.5-35.6 [facility] MCV Auto (RBC) [Entitic vol] Ordered By: Galo Dent on 10-11-2022 MCV (RBC) [Entitic vol] 89.4 fL 83.5-101 [facility] Monocytes Auto (Bld) [#/Vol] Ordered By: Galo Dent on 10-11-2022 Monocytes (Bld) [#/Vol] 0.7 10*3/uL 0.0-0.8 [facility] Monocytes/100 WBC Auto (Bld) Ordered By: Galo Dent on 10-11-2022 Monocytes/100 WBC (Bld) 10.2 % . [facility] Neutrophils Auto (Bld) [#/Vo l]Ordered By: Galo Dent on 10-11-2022 Neutrophils (Bld) [#/Vol] 4.2 10*3/uL 1.8-7.7 [facility] Neutrophils/100 WBC Auto (Bl d)Ordered By: Galo Dent on 10-11-2022 Neutrophils/100 WBC (Bld) 63.8 % . [facility] Nucleated erythrocytes [Pres ence] in Blood by Automated countOrdered By: Galo Dent on 10-11-2022 Nucleated RBC Auto Ql (Bld) 0.1 /100{WBC} 0-0.5 [facility] Platelet mean volume Auto (B ld) [Entitic vol]Ordered By: Galo Dent on 10-11-2022 Platelet mean volume (Bld) [Entitic vol] 7.3 fL 6.6-10.1 [facility] Platelet poor plasma interna tional normalized ratio (INR) by coagulation assay (relatOrdered By: Galo Dent on 10-11-2022 INR Coag (PPP) [Relative time] 1.0 {INR} [facility] Comment on above: INR Therapeutic Rang e [...] 10-11-2022 Platelets (Bld) [#/Vol] 203 10*3/uL 150-450 [facility] Protein [Mass/volume] in Ser um or PlasmaOrdered By: Rubén Tatum on 10-11-2022 Protein [Mass/Vol] 6.4 g/dL 6.4-8.9 [facility] RBC Auto (Bld) [#/Vol]Ordere d By: Galo Dent on 10-11-2022 RBC (Bld) [#/Vol] 4.21 10*6/uL 3.90-5.60 [facility] Serum or plasma albumin/glob ulin mass ratioOrdered By: Rubén Tatum on 10-11-2022 Albumin/Globulin [Mass ratio] 1.6 {ratio} [facility] Serum or plasma high density lipoprotein (HDL) cholesterol measurementOrdered By: Rubén Tatum on 10-11-2022 Cholesterol in HDL [Mass/Vol] 42 mg/dL 29-71 [facility] Comment on above: HDL CHOL ATP-III CLA SSIFICATION Cardiovascular RiskHDL > or equal to 60 mg/dL LOWHDL < 40 mg/dL HIGH Serum or plasma total choles terol/high density lipoprotein (HDL) cholesterol mass ratOrdered By: Rubén Tatum on 10-11-2022 Cholesterol.total/Chol esterol in HDL [Mass ratio] 5.3 {ratio} <5.0 [facility] Triglyceride [Mass/volume] i n Serum or PlasmaOrdered By: Rubén Tatum on 10-11-2022 Triglyceride [Mass/Vol] 152 mg/dL 0-149 [facility] Comment on above: TRIG ATP III CLASSIF [...] <= 0.01 ng/mL [Mass/Vol] 3965.8 pg/mL 0.0-20.0 [facility] Comment on above: Critical Result : Ca lled to and read back by: HECTOR LOCO at: 10/11/2022 06:45:50 by:[id number] WBC Auto (Bld) [#/Vol]Ordere d By: Galo Dent on 10-11-2022 WBC (Bld) [#/Vol] 6.6 10*3/uL 4.1-10.5 [facility] AMYLASEon 10-10-2022 Amylase [Catalytic activity/Vol] 40 U/L Normal 25-115 [facility] Comment on above: Performed By: #### A MY, CMP, LIPA #### [facility] [address] [address] [address] Carrington Chandler Activated partial thrombopla stin time (aPTT) in platelet poor plasma by coagulation aOrdered By: Galo Dent on 10-10-2022 aPTT Coag (PPP) [Time] 35.9 s 25.1-36.5 [facility] CARDIAC ARLIN ADMITon 023 CK [Catalytic activity/Vol] 530 U/L Critically high 39-308 [facility] Comment on above: Performed By: #### A MY, CMP, LIPA #### [facility] [address] [address] [address] Carrington Chandler CK.MB [Mass/Vol] 60.47 ng/mL Critically high <=3.60 [facility] Comment on above: Performed By: #### A MY, CMP, LIPA #### [facility] [address] [address] [address] Carrington Chandler HSTROP 9166.1 pg/mL Critically high 4.0-76.1 [facility] [place] Comment on above: Result Comment: CUT- OFF POINTS HAVE BEEN ESTABLISHED BASED ON THE FOURTH UNIVERSAL DEFINITIONS OF MYOCARDIAL INFARCTION. THE UPPER REFERENCE LIMIT (URL) OF TROPONIN, DEFINED THE 99TH PERCENTILE OF cTnI DISTRIBUTION IN A REFERENCE POPULATION, HAS BEEN CONFIRMED THE DECISION THRESHOLD FOR SD DIAGNOSIS. Performed By: #### A MY, CMP, LIPA #### [facility] [address] [address] [address] Carrington Chandler SAULO 108 ng/mL Critically high 16-96 [facility] Comment on above: Performed By: #### A MY, CMP, LIPA #### [facility] [address] [address] [address] Carrington Chandler CBC AUTO DIFFon 10-10-2022 BASO # 0.0 103/ul Normal 0.0-0.1 [facility] Comment on above: Performed By: #### B MP #### [facility] [address] [place] [address] Dr. Carrington Chandler Basophils/100 WBC (Bld) 0.4 % Normal 0.2-2.0 [facility] Comment on above: Performed By: #### B MP #### [facility] [address] [place] [address] Dr. Carrington Chandler EO # 0.3 103/ul Normal 0.0-0.7 [facility] Comment on above: Performed By: #### B MP #### [facility] [address] [place] [address] Dr. Carrington Chandler Eosinophils/100 WBC (Bld) 4.9 % Normal 0.9-7.0 [facility] Comment on above: Performed By: #### B MP #### [facility] [address] [place] [address] Dr. Carrington Chandler Erythrocyte distribution width (RBC) [Ratio] 13.8 % Normal 11.0-15.[address] [facility] Comment on above: Performed By: #### B MP #### [facility] [address] [place] [address] Dr. Carrington Chandler Hematocrit (Bld) [Volume fraction] 38.1 % Critically low 42.0-54.0 [facility] Comment on above: Performed By: #### B MP #### [facility] [address] [place] [address] Dr. Carrington Chandler Hemoglobin (Bld) [Mass/Vol] 13.1 g/dL Critically low 14.0-18.[address] [facility] Comment on above: Performed By: #### B MP #### [facility] [address] [address] [address] Carrington Chandler IG # 0.01 10e3/ul Normal 0.00-0.03 [facility] Comment on above: Performed By: #### B MP #### [facility] [address] [place] [address] Dr. Carrington Chandler IG % 0.2 % Normal 0.0-0.5 [facility] Comment on above: Performed By: #### B MP #### [facility] [address] [place] [address] Dr. Carrington Chandler LYMPH # 1.8 103/ul Normal 1.2-3.[address] [facility] Comment on above: Performed By: #### B MP #### [facility] [address] [place] [address] Dr. Carrington Chandler Lymphocytes/100 WBC (Bld) 33.5 % Normal 20.5-60.0 [facility] Comment on above: Performed By: #### B MP #### [facility] [address] [place] [address] Dr. Carrington Chandler MANUAL DIFF REQ NO Normal [facility] Comment on above: Performed By: #### B MP #### [facility] [address] [place] [address] Dr. Carrington Chandler MCH (RBC) [Entitic mass] 30.7 pg Normal 25.9-34.0 [facility] Comment on above: Performed By: #### B MP #### [facility] [address] [place] [address] Dr. Carrington Chandler MCHC (RBC) [Mass/Vol] 34.4 g/dL Normal 29.9-35.2 [facility] Comment on above: Performed By: #### B MP #### [facility] [address] [place] [address] Dr. Carrington Chandler MCV (RBC) [Entitic vol] 89.2 fL Normal 80.0-94.0 [facility] Comment on above: Performed By: #### B MP #### [facility] [address] [address] [address] Carrington Chandler MONO # 0.6 103/ul Normal 0.3-0.8 [facility] Comment on above: Performed By: #### B MP #### [facility] [address] [place] [address] Dr. Carrington Chandler Monocytes/100 WBC (Bld) 11.8 % Normal 1.7-12.0 [facility] Comment on above: Performed By: #### B MP #### [facility] [address] [place] [address] Dr. Carrington Chandler NEUT # 2.6 103/ul Normal 1.4-6.5 [facility] Comment on above: Performed By: #### B MP #### [facility] [address] [place] [address] Dr. Carrington Chandler Neutrophils/100 WBC (Bld) 49.2 % Normal 43.0-75.0 [facility] Comment on above: Performed By: #### B MP #### [facility] [address] [place] [address] Dr. Carrington Chandler Platelet mean volume (Bld) [Entitic vol] 9.2 fL Critically low 9.5-13.[address] [facility] Comment on above: Performed By: #### B MP #### [facility] [address] [place] [address] Dr. Carrington Chandler PLT 213 103/ul Normal 150-[address] [facility] Comment on above: Performed By: #### B MP #### [facility] [address] [place] [address] Dr. Carrington Chandler RBC 4.27 106/ul Critically low 4.70-6.10 [facility] Comment on above: Performed By: #### B MP #### [facility] [address] [place] [address] Dr. Carrington Chandler WBC 5.4 103/ul Normal 4.0-11.[address] [facility] Comment on above: Performed By: #### B MP #### [facility] [address] [place] [address] Dr. Carrington Chandler LIPASEon 10-10-2022 Lipase [Catalytic activity/Vol] 212.0 U/L Normal 73.0-393.0 [facility] Comment on above: Performed By: #### A MY, CMP, LIPA #### [facility] [address] [address] [address] Carrington Chandler PROF 14(COMP METB)on 023 Albumin [Mass/Vol] 3.9 g/dL Normal 3.4-5.0 [facility] Comment on above: Performed By: #### A MY, CMP, LIPA #### [facility] [address] [address] [address] Carrington Chandler Albumin/Globulin [Mass ratio] 1.2 {ratio} Normal [facility] Comment on above: Performed By: #### A MY, CMP, LIPA #### [facility] [address] [place] [address] Dr. Carrington Chandler ALP [Catalytic activity/Vol] 67 U/L Normal 46-116 [facility] Comment on above: Performed By: #### A MY, CMP, LIPA #### [facility] [address] [address] [address] Carrington Chandler ALT [Catalytic activity/Vol] 30 U/L Normal 16-63 [facility] Comment on above: Performed By: #### A MY, CMP, LIPA #### [facility] [address] [address] [address] Carrington Chandler Anion gap [Moles/Vol] 12.8 mmol/L Normal [facility] Comment on above: Performed By: #### A MY, CMP, LIPA #### [facility] [address] [address] [address] Carrington Chandler AST [Catalytic activity/Vol] 58 U/L Critically high 15-37 [facility] Comment on above: Performed By: #### A MY, CMP, LIPA #### [facility] [address] [address] [address] Carrington Chandler Bilirubin [Mass/Vol] 0.3 mg/dL Normal 0.2-1.0 [facility] Comment on above: Performed By: #### A MY, CMP, LIPA #### [facility] [address] [address] [address] Carrington Chandler Calcium [Mass/Vol] 8.9 mg/dL Normal 8.5-10.1 The [facility] Comment on above: Performed By: #### A MY, CMP, LIPA #### [facility] [address] [address] [address] Carrington Chandler Chloride [Moles/Vol] 101 mmol/L Normal 98-[address] [facility] Comment on above: Performed By: #### A MY, CMP, LIPA #### [facility] [address] [address] [address] Carrington Chandler CO2 [Moles/Vol] 26.0 mmol/L Normal 21.0-32.0 [facility] Comment on above: Performed By: #### A MY, CMP, LIPA #### [facility] [address] [place] [address] Dr. Carrington Chandler Creatinine [Mass/Vol] 0.98 mg/dL Normal 0.70-1.30 [facility] Comment on above: Performed By: #### A MY, CMP, LIPA #### [facility] [address] [place] [address] Dr. Carrington Chandler EGFR-AF MOLDOVAN >60 Normal >=60 [facility] Comment on above: Performed By: #### A MY, CMP, LIPA #### [facility] [address] [place] [address] Dr. Carrington Chandler EGFR-NON AF MOLDOVAN >60 Normal >=[address] [facility] Comment on above: Performed By: #### A MY, CMP, LIPA #### [facility] [address] [address] [address] Carrington Chandler Globulin (S) [Mass/Vol] 3.2 g/dL Normal [facility] Comment on above: Performed By: #### A MY, CMP, LIPA #### [facility] [address] [place] [address] Dr. Carrington Chandler Glucose [Mass/Vol] 101 mg/dL Normal 74-106 The [facility] Comment on above: Performed By: #### A MY, CMP, LIPA #### [facility] [address] [address] [address] Carrington Chandler Potassium [Moles/Vol] 3.8 mmol/L Normal 3.5-5.[address] [facility] Comment on above: Performed By: #### A MY, CMP, LIPA #### [facility] [address] [place] [address] Dr. Carrington Chanlder Protein [Mass/Vol] 7.1 g/dL Normal 6.4-8.2 The [facility] Comment on above: Performed By: #### A MY, CMP, LIPA #### [facility] [address] [place] [address] Dr. Carrington Chandler Sodium [Moles/Vol] 136 mmol/L Normal 136-145 The [facility] Comment on above: Performed By: #### A MY, CMP, LIPA #### [facility] [address] [address] [address] Carrington Chandler Urea nitrogen [Mass/Vol] 19.0 mg/dL Critically high 7.0-18.0 [facility] Comment on above: Performed By: #### A MY, CMP, LIPA #### [facility] [address] [place] [address] Dr. Carrington Chandler Urea nitrogen/Creatinine [Mass ratio] 19.4 mg/mg Normal [facility] Comment on above: Performed By: #### A MY, CMP, LIPA #### [facility] [address] [place] [address] Dr. Carrington Chandler PROTIMEon 10-10-2022 INR Coag (PPP) [Relative time] {INR} Normal [facility] Comment on above: Performed By: #### B MP #### [facility] [address] [place] [address] Dr. Carrington Chandler INR GUIDELINES SEE BELOW Normal [facility] Comment on above: Result Comment: LYNDON RED INR: 2.0 - 3.0 CONDITIONS NOT LISTED BELOW 2.5 - 3.5 FOR PROSTHETIC HEART VALVE REPLACEMENT 2.5 - 3.5 RECURRENT THROMBOSIS Performed By: #### B MP #### [facility] [address] [place], [place] [address] Dr. Carrington Chandler PT Coag (PPP) [Time] 9.7 s Normal 9.0-11.6 [facility] Comment on above: Performed By: #### B MP #### [facility] [address] [place], [place] [address] Dr. Carrington Chandler PTTon 10-10-2022 aPTT Coag (Bld) [Time] 29.5 s Normal 22.3-36.2 [facility] Comment on above: Performed By: #### B MP #### [facility] [id number] Carrington Chandler XR ABD FLAT UP_PA [...] SCHNEIDER Date: 2022-10-10 00:33 Normal [facility] XR knee RT 3Von 09-09-2022 XR knee RT 3V [facility] Other XR knee RT 3V [facility] Other XR knee RT 3V [address] [place] [address] [facility] Other XR knee RT [address] [address] Nor [facility] Other XR knee RT 3V XRay Report [place] [employer] Other XR knee RT 3V Signed [employer] Other XR knee RT 3V Patient: Hector Gaspar SR MR#: [id number] [facility] Other XR knee RT 3V 187 [facility] Other XR knee RT 3V : 1960 Acct:[id number] [facility] Other XR knee RT 3V Age/Sex: 62 / M ADM Date: 09/09/22 [facility] Other XR knee RT 3V Loc: [facility] Room: Type : [facility] Other XR knee RT 3V Attending Dr: Wagner Marrufo DO [facility] Other XR knee RT 3V Copies to: Wagner Marrufo, [facility] Other XR knee RT 3V Ordering Provider: Judy Marrufo DO [facility] Other XR knee RT 3V Date of Service: 09/09/22 [facility] Other XR knee RT 3V XR/XR knee RT 3V - NOT FOR ER USE: Acute pain of right knee [facility] Other XR knee RT 3V RIGHT KNEE - 3 views N [employer] Other XR knee RT 3V CLINICAL HISTORY: Generalized right knee pain for 2 weeks. [facility] Other XR knee RT 3V COMPARISON: None [facility] Other XR knee RT 3V FINDINGS: [facility] Other XR knee RT 3V Small knee joint effusion. Mild degenerative changes without acute bony process. Presumed loose [facility] Other XR knee RT 3V body seen anteriorly within the joint space. [facility] Other XR knee RT 3V X R/XR knee RT 3V - NOT FOR ER USE [facility] Other XR knee RT 3V IMPRESSION: [employer] Other XR knee RT 3V MILD DEGENERATIVE CH ANGES WITHOUT ACUTE BONY PROCESS. [facility] Other XR knee RT 3V Impression dictated by: Parrish Layton Jr., D.OEhsan09/09/2022 3:40 PM [facility] Other XR knee RT 3V Dictation Location: [place] [address] [facility] Other XR knee RT 3V Transcribed By: PWS 09/09/22 154 [facility] Other XR knee RT 3V Dictated By: Parrish Layton Jr, DO 09/09/22 153 [facility] Other XR knee RT 3V Signed By: [facility] Other XR knee RT 3V 09/09/22 [facility] Other CBC AUTO DIFFon 09-08-2022 BASO # 0.0 103/ul Normal 0.0-0.[address] [facility] Comment on above: Performed By: #### C BC #### [facility] [address] [place] [address] Dr. Carrington Chandler Basophils/100 WBC (Bld) 0.4 % Normal 0.2-2.[address] [facility] Comment on above: Performed By: #### C BC #### [facility] [address] [place] [address] Dr. Carrington Chandler EO # 0.3 103/ul Normal 0.0-0.[address] [facility] Comment on above: Performed By: #### C BC #### [facility] [address] [place] [address] Dr. Carrington Chandler Eosinophils/100 WBC (Bld) 4.9 % Normal 0.9-7.0 [facility] Comment on above: Performed By: #### C BC #### [facility] [address] [place] [address] Dr. Carrington Chandler Erythrocyte distribution width (RBC) [Ratio] 14.0 % Normal 11.0-15.0 [facility] Comment on above: Performed By: #### C BC #### [facility] [address] [place] [address] Dr. Carrington Chandler Hematocrit (Bld) [Volume fraction] 36.9 % Critically low 42.0-54.0 [facility] Comment on above: Performed By: #### C BC #### [facility] [address] [place] [address] Dr. Carrington Chandler Hemoglobin (Bld) [Mass/Vol] 12.2 g/dL Critically low 14.0-18.0 [facility] Comment on above: Performed By: #### C BC #### [facility] [address] [place] [address] Dr. Carrington Chandler IG # 0.01 10e3/ul Normal 0.00-0.03 [facility] Comment on above: Performed By: #### C BC #### [facility] [address] [place] [address] Dr. Carrington Chandler IG % 0.2 % Normal 0.0-0.[address] [facility] Comment on above: Performed By: #### C BC #### [facility] [address] [place] [address] Dr. Carrington Chandler LYMPH # 1.7 103/ul Normal 1.2-3.[address] [facility] Comment on above: Performed By: #### C BC #### [facility] [address] [place] [address] Dr. Carrington Chandler Lymphocytes/100 WBC (Bld) 30.6 % Normal 20.5-60.0 [facility] Comment on above: Performed By: #### C BC #### [facility] [address] [place] [address] Dr. Carrington Chandler MANUAL DIFF REQ NO Normal [facility] Comment on above: Performed By: #### C BC #### [facility] [address] [place] [address] Dr. Carrington Chandler MCH (RBC) [Entitic mass] 30.3 pg Normal 25.9-34.0 [facility] Comment on above: Performed By: #### C BC #### [facility] [address] [place] [address] Dr. Carrington Chandler MCHC (RBC) [Mass/Vol] 33.1 g/dL Normal 29.9-35.2 [facility] Comment on above: Performed By: #### C BC #### [facility] [address] [place] [address] Dr. Carrington Chandler MCV (RBC) [Entitic vol] 91.6 fL Normal 80.0-94.0 [facility] Comment on above: Performed By: #### C BC #### [facility] [address] [place] [address] Dr. Carrington Chandler MONO # 0.6 103/ul Normal 0.3-0.8 [facility] Comment on above: Performed By: #### C BC #### [facility] [address] [place] [address] Dr. Carrington Chandler Monocytes/100 WBC (Bld) 9.9 % Normal 1.7-12.[address] [facility] Comment on above: Performed By: #### C BC #### [facility] [address] [place] [address] Dr. Carrington Chandler NEUT # 3.0 103/ul Normal 1.4-6.[address] [facility] Comment on above: Performed By: #### C BC #### [facility] [address] [place] [address] Dr. Carrington Chandler Neutrophils/100 WBC (Bld) 54.0 % Normal 43.0-75.[address] [facility] Comment on above: Performed By: #### C BC #### [facility] [address] [place] [address] Dr. Carrington Chandler Platelet mean volume (Bld) [Entitic vol] 8.9 fL Critically low 9.5-13.5 [facility] Comment on above: Performed By: #### C BC #### [facility] [address] [place] [address] Dr. Carrington Chandler PLT 189 103/ul Normal 150-450 [facility] Comment on above: Performed By: #### C BC #### [facility] [address] [address] [address] Carrington Chandler RBC 4.03 106/ul Critically low 4.70-6.10 [facility] Comment on above: Performed By: #### C BC #### [facility] [address] [place] [address] Dr. Carrington Chandler WBC 5.5 103/ul Normal 4.0-11.0 [facility] Comment on above: Performed By: #### C BC #### [facility] [address] [place] [address] Dr. Carrington Chandler CRPon 09-08-2022 CRP 0.5 mg/dL Normal <=1.0 [facility] Comment on above: Performed By: #### A MY, CMP, LIPA #### [facility] [address] [place] [address] Dr. Carrington Chandler PROF CHEM 8 (BAS METB)on Anion gap [Moles/Vol] 12.7 mmol/L Normal [facility] Comment on above: Performed By: #### A MY, CMP, LIPA #### [facility] [address] [place] [address] Dr. Carrington Chandler Calcium [Mass/Vol] 8.6 mg/dL Normal 8.5-10.1 [facility] Comment on above: Performed By: #### A MY, CMP, LIPA #### [facility] [address] [place] [address] Dr. Carrington Chandler Chloride [Moles/Vol] 102 mmol/L Normal 98-107 [facility] Comment on above: Performed By: #### A MY, CMP, LIPA #### [facility] [address] [address] [address] Carrington Chandler CO2 [Moles/Vol] 27.2 mmol/L Normal 21.0-32.0 [facility] Comment on above: Performed By: #### A MY, CMP, LIPA #### [facility] [address] [address] [address] Carrington Chandler Creatinine [Mass/Vol] 1.11 mg/dL Normal 0.70-1.30 [facility] Comment on above: Performed By: #### A MY, CMP, LIPA #### [facility] [address] [address] [address] Carrington Chandler EGFR-AF MOLDOVAN >60 Normal >=60 [facility] Comment on above: Performed By: #### A MY, CMP, LIPA #### [facility] [address] [address] [address] Carrington Chandler EGFR-NON AF MOLDOVAN >60 Normal >=60 [facility] Comment on above: Performed By: #### A MY, CMP, LIPA #### [facility] [address] [address] [address] Carrington Chandler Glucose [Mass/Vol] 132 mg/dL Critically high 74-106 [facility] Comment on above: Performed By: #### A MY, CMP, LIPA #### [facility] [address] [address] [address] Carrington Chandler Potassium [Moles/Vol] 3.9 mmol/L Normal 3.5-5.1 [facility] Comment on above: Performed By: #### A MY, CMP, LIPA #### [facility] [address] [address] [address] Carrington Chandler Sodium [Moles/Vol] 138 mmol/L Normal 136-145 [facility] Comment on above: Performed By: #### A MY, CMP, LIPA #### [facility] [address] [address] [address] Carrington Chandler Urea nitrogen [Mass/Vol] 18.0 mg/dL Normal 7.0-18.0 [facility] Comment on above: Performed By: #### A MY, CMP, LIPA #### [facility] [address] [address] [address] Carrington Chandler Urea nitrogen/Creatinine [Mass ratio] 16.2 mg/mg Normal [facility] Comment on above: Performed By: #### A MY, CMP, LIPA #### [facility] [address] [address] [address] Carrington Chandler US CARR[place] DOP LEG [...] CYNTHIA VASQUEZ Date: 2022-09-07 22:52 Normal [address] [facility] HEMOGLOBINon 08-10-2022 Hemoglobin (Bld) [Mass/Vol] 13.3 g/dL Critically low 14.0-18.[address] [facility] Comment on above: Performed By: #### B MP #### [facility] [address] [address] [address] Carrington Chandler CBC W MANUAL DIFFon 07-11-20 22 ATYPICAL LYMPH # 0.65 103/ul Normal [facility] Comment on above: Performed By: #### A MY, CMP, LIPA #### [facility] [address] [place], [place] [address] Dr. Carrington Chandler ATYPICAL LYMPH % 11 % Normal [facility] Comment on above: Performed By: #### A MY, CMP, LIPA #### [facility] [address] [address] [address] Carrington Chandler BAND # 0.0 103/ul Normal 0.0-0.[address] [facility] Comment on above: Performed By: #### A MY, CMP, LIPA #### [facility] [address] [address] [address] Carrington Chandler BAND % 0 % Normal 0-[address] [facility] Comment on above: Performed By: #### A MY, CMP, LIPA #### [facility] [address] [place] [address] Dr. Carrington Chandler BASOM # 0.00 103/ul Normal 0.00-0.[address] [facility] Comment on above: Performed By: #### A MY, CMP, LIPA #### [facility] [address] [place] [address] Dr. Carrington Chandler BASOM % 0.0 % Critically low 0.2-2.0 [facility] Comment on above: Performed By: #### A MY, CMP, LIPA #### [facility] [address] [place] [address] Dr. Carrington Chandler BLAST # Normal [facility] Comment on above: Performed By: #### A MY, CMP, LIPA #### [facility] [address] [place] [address] Dr. Carrington Chandler BLAST % Normal [facility] Comment on above: Performed By: #### A MY, CMP, LIPA #### [facility] [address] [place] [address] Dr. Carrington Chandler CORRECTED WBC Normal 4.0-11.0 [facility] Comment on above: Performed By: #### A MY, CMP, LIPA #### [facility] [address] [place] [address] Dr. Carrington Chandler EOS # 0.00 103/ul Normal 0.00-0.[address] [facility] Comment on above: Performed By: #### A MY, CMP, LIPA #### [facility] [address] [place] [address] Dr. Carrington Chandler EOS% 0.0 % Critically low 0.9-7.0 [facility] Comment on above: Performed By: #### A MY, CMP, LIPA #### [facility] [address] [address] [address] Carrington Chandler HCT 34.7 % Critically low 42.0-54.0 [facility] Comment on above: Performed By: #### A MY, CMP, LIPA #### [facility] [address] [address] [address] Carrington Chandler HGB 11.7 g/dl Critically low 14.0-18.0 [facility] Comment on above: Performed By: #### A MY, CMP, LIPA #### [facility] [address] [place] [address] Dr. Carrington Chandler LYMPHM # 0.12 103/ul Critically low 1.20-3.80 [facility] Comment on above: Performed By: #### A MY, CMP, LIPA #### [facility] [address] [place] [address] Dr. Carrington Chandler LYMPHM% 2.0 % Critically low 20.5-60.0 [facility] Comment on above: Performed By: #### A MY, CMP, LIPA #### [facility] [address] [place] [address] Dr. Carrington Chandler MCH 29.9 pg Normal 25.9-34.0 [facility] Comment on above: Performed By: #### A MY, CMP, LIPA #### [facility] [address] [place] [address] Dr. Carrington Chandler MCHC 33.7 g/dl Normal 29.9-35.[address] [facility] Comment on above: Performed By: #### A MY, CMP, LIPA #### [facility] [address] [place] [address] Dr. Carrington Chandler MCV 88.7 fL Normal 80.0-94.0 [facility] Comment on above: Performed By: #### A MY, CMP, LIPA #### [facility] [address] [address] [address] Carrington Chandler METAMYELOCYTE # Normal [facility] Comment on above: Performed By: #### A MY, CMP, LIPA #### [facility] [address] [address] [address] Carrington Chandler METAMYELOCYTE % Normal [facility] Comment on above: Performed By: #### A MY, CMP, LIPA #### [facility] [address] [place] [address] Dr. Carrington Chandler MONOM# 0.00 103/ul Critically low 0.30-0.80 [facility] Comment on above: Performed By: #### A MY, CMP, LIPA #### [facility] [address] [place] [address] Dr. Carrington Chandler MONOM% 0.0 % Critically low 1.7-12.0 [facility] Comment on above: Performed By: #### A MY, CMP, LIPA #### [facility] [address] [place] [address] Dr. Carrington Chandler MPV 9.4 fL Critically low 9.5-13.5 [facility] Comment on above: Performed By: #### A MY, CMP, LIPA #### [facility] [address] [place] [address] Dr. Carrington Chandler MYELOCYTE # Normal [facility] Comment on above: Performed By: #### A MY, CMP, LIPA #### [facility] [address] [place] [address] Dr. Carrington Chandler MYELOCYTE % Normal [facility] Comment on above: Performed By: #### A MY, CMP, LIPA #### [facility] [address] [place] [address] Dr. Carrington Chandler NRBC Normal [facility] Comment on above: Performed By: #### A MY, CMP, LIPA #### [facility] [address] [place] [address] Dr. Carrington Chandler PLT 160 103/ul Normal 150-[address] [facility] Comment on above: Performed By: #### A MY, CMP, LIPA #### [facility] [address] [address] [address] Carrington Chandler RBC 3.91 106/ul Critically low 4.70-6.10 [facility] Comment on above: Performed By: #### A MY, CMP, LIPA #### [facility] [address] [address] [address] Carrington Chandler RDW 12.4 % Normal 11.0-15.0 [facility] Comment on above: Performed By: #### A MY, CMP, LIPA #### [facility] [address] [place] [address] Dr. Carrington Chandler SEG # 5.13 103/ul Normal 1.40-6.50 [facility] Comment on above: Performed By: #### A MY, CMP, LIPA #### [facility] [address] [place] [address] Dr. Carrington Chandler SEG % 87.0 % Critically high 43.0-75.0 [facility] Comment on above: Performed By: #### A MY, CMP, LIPA #### [facility] [address] [place] [address] Dr. Carrington Chandler WBC 5.9 103/ul Normal 4.0-11.0 [facility] Comment on above: Performed By: #### A MY, CMP, LIPA #### [facility] [address] [place] [address] Dr. Carrington Chandler PROF 14(COMP METB)on 022 Albumin [Mass/Vol] 3.0 g/dL Critically low 3.4-5.0 [facility] Comment on above: Performed By: #### C MP #### [facility] [address] [place] [address] Dr. Carrington Chandler Albumin/Globulin [Mass ratio] 0.9 {ratio} Normal [facility] Comment on above: Performed By: #### C MP #### [facility] [address] [place] [address] Dr. Carrington Chandler ALP [Catalytic activity/Vol] 56 U/L Normal 46-116 [facility] Comment on above: Performed By: #### C MP #### [facility] [address] [address] [address] Carrington Chandler ALT [Catalytic activity/Vol] 21 U/L Normal 16-63 [facility] Comment on above: Performed By: #### C MP #### [facility] [address] [address] [address] Carrington Chandler Anion gap [Moles/Vol] 12.9 mmol/L Normal Th [facility] Comment on above: Performed By: #### C MP #### [facility] [address] [address] [address] Carrington Chandler AST [Catalytic activity/Vol] 15 U/L Normal 15-37 [facility] Comment on above: Performed By: #### C MP #### [facility] [address] [place] [address] Dr. Carrington Chandler Bilirubin [Mass/Vol] 0.2 mg/dL Normal 0.2-1.0 [facility] Comment on above: Performed By: #### C MP #### [facility] [address] [address] [address] Carrington Chandler Calcium [Mass/Vol] 8.1 mg/dL Critically low 8.5-10.1 [facility] Comment on above: Performed By: #### C MP #### [facility] [address] [place] [address] Dr. Carrington Chandler Chloride [Moles/Vol] 104 mmol/L Normal 98-107 [facility] Comment on above: Performed By: #### C MP #### [facility] [address] [address] [address] Carrington Chandler CO2 [Moles/Vol] 24.6 mmol/L Normal 21.0-32.0 [facility] Comment on above: Performed By: #### C MP #### [facility] [address] [address] [address] Carrington Chandler Creatinine [Mass/Vol] 0.88 mg/dL Normal 0.70-1.30 [facility] Comment on above: Performed By: #### C MP #### [facility] [address] [address] [address] Carrington Chandler EGFR-AF MOLDOVAN >60 Normal >=60 [facility] Comment on above: Performed By: #### C MP #### [facility] [address] [address] [address] Carrington Chandler EGFR-NON AF MOLDOVAN >60 Normal >=60 [facility] Comment on above: Performed By: #### C MP #### [facility] [address] [address] [address] Carrington Chandler Globulin (S) [Mass/Vol] 3.3 g/dL Normal [facility] Comment on above: Performed By: #### C MP #### [facility] [address] [address] [address] Carrington Chandler Glucose [Mass/Vol] 174 mg/dL Critically high 74-106 [facility] Comment on above: Performed By: #### C MP #### [facility] [address] [address] [address] Carrington Chandler Potassium [Moles/Vol] 3.5 mmol/L Normal 3.5-5.1 [facility] Comment on above: Performed By: #### C MP #### [facility] [address] [place] [address] Dr. Carrington Chandler Protein [Mass/Vol] 6.3 g/dL Critically low 6.4-8.2 Th [facility] Comment on above: Performed By: #### C MP #### [facility] [address] [address] [address] Carrington Chandler Sodium [Moles/Vol] 138 mmol/L Normal 136-145 [facility] Comment on above: Performed By: #### C MP #### [facility] [address] [address] [address] Carrington Chandler Urea nitrogen [Mass/Vol] 17.0 mg/dL Normal 7.0-18.0 [facility] Comment on above: Performed By: #### C MP #### [facility] [address] [address] [address] Carrington Chandler Urea nitrogen/Creatinine [Mass ratio] 19.3 mg/mg Normal [facility] Comment on above: Performed By: #### C MP #### [facility] [address] [place] [address] Dr. Carrington Chandler CBC AUTO DIFFon 07-10-2022 BASO # 0.0 103/ul Normal 0.0-0.1 [facility] Comment on above: Performed By: #### B MP #### [facility] [address] [place] [address] Dr. Carrington Chandler Basophils/100 WBC (Bld) 0.2 % Normal 0.2-2.[address] [facility] Comment on above: Performed By: #### B MP #### [facility] [address] [place] [address] Dr. Carrington Chandler EO # 0.1 103/ul Normal 0.0-0.[address] [facility] Comment on above: Performed By: #### B MP #### [facility] [address] [place] [address] Dr. Carrington Chandler Eosinophils/100 WBC (Bld) 2.3 % Normal 0.9-7.[address] [facility] Comment on above: Performed By: #### B MP #### [facility] [address] [place] [address] Dr. Carrington Chandler Erythrocyte distribution width (RBC) [Ratio] 12.5 % Normal 11.0-15.[address] [facility] Comment on above: Performed By: #### B MP #### [facility] [address] [place] [address] Dr. Carrington Chandler Hematocrit (Bld) [Volume fraction] 36.8 % Critically low 42.0-54.[address] [facility] Comment on above: Performed By: #### B MP #### [facility] [address] [place] [address] Dr. Carrington Chandler Hemoglobin (Bld) [Mass/Vol] 12.3 g/dL Critically low 14.0-18.0 [facility] Comment on above: Performed By: #### B MP #### [facility] [address] [place] [address] Dr. Carrington Chandler IG # 0.01 10e3/ul Normal 0.00-0.03 [facility] Comment on above: Performed By: #### B MP #### [facility] [address] [place] [address] Dr. Carrington Chandler IG % 0.2 % Normal 0.0-0.5 [facility] Comment on above: Performed By: #### B MP #### [facility] [address] [place] [address] Dr. Carrington Chandler LYMPH # 1.5 103/ul Normal 1.2-3.8 [facility] Comment on above: Performed By: #### B MP #### [facility] [address] [place] [address] Dr. Carrington Chandler Lymphocytes/100 WBC (Bld) 34.7 % Normal 20.5-60.0 [facility] Comment on above: Performed By: #### B MP #### [facility] [address] [place] [address] Dr. Carrington Chandler MANUAL DIFF REQ NO Normal [facility] Comment on above: Performed By: #### B MP #### [facility] [address] [place] [address] Dr. Carrington Chandler MCH (RBC) [Entitic mass] 29.8 pg Normal 25.9-34.0 [facility] Comment on above: Performed By: #### B MP #### [facility] [address] [place] [address] Dr. Carrington Chandler MCHC (RBC) [Mass/Vol] 33.4 g/dL Normal 29.9-35.[address] [facility] Comment on above: Performed By: #### B MP #### [facility] [address] [place] [address] Dr. Carrington Chandler MCV (RBC) [Entitic vol] 89.1 fL Normal 80.0-94.0 [facility] Comment on above: Performed By: #### B MP #### [facility] [address] [place] [address] Dr. Carrington Chandler MONO # 0.5 103/ul Normal 0.3-0.8 [facility] Comment on above: Performed By: #### B MP #### [facility] [address] [place] [address] Dr. Carrington Chandler Monocytes/100 WBC (Bld) 11.0 % Normal 1.7-12.0 [facility] Comment on above: Performed By: #### B MP #### [facility] [address] [place] [address] Dr. Carrington Chandler NEUT # 2.2 103/ul Normal 1.4-6.5 [facility] Comment on above: Performed By: #### B MP #### [facility] [address] [place] [address] Dr. Carrington Chandler Neutrophils/100 WBC (Bld) 51.6 % Normal 43.0-75.0 [facility] Comment on above: Performed By: #### B MP #### [facility] [address] [place] [address] Dr. Carrington Chandler Platelet mean volume (Bld) [Entitic vol] 9.0 fL Critically low 9.5-13.5 [facility] Comment on above: Performed By: #### B MP #### [facility] [address] [place] [address] Dr. Carrington Chandler PLT 147 103/ul Critically low 150-450 [facility] Comment on above: Performed By: #### B MP #### [facility] [address] [place] [address] Dr. Carrington Chandler RBC 4.13 106/ul Critically low 4.70-6.10 [facility] Comment on above: Performed By: #### B MP #### [facility] [address] [place] [address] Dr. Carrington Chandler WBC 4.4 103/ul Normal 4.0-11.0 [facility] Comment on above: Performed By: #### B MP #### [facility] [address] [place] [address] Dr. Carrington Chandler CULTURE SPUTUMon 07-10-2022 CULTURE SPUTUM Culture Observations : NORMAL RESPIRATORY SANDY. Normal [facility] Comment on above: Performed By: #### C MP #### [facility] [address] [place] [address] Dr. Carrington Chandler MAGNESIUMon 07-10-2022 Magnesium [Mass/Vol] 2.0 mg/dL Normal 1.8-2.4 [facility] Comment on above: Performed By: #### C MP #### [facility] [address] [place] [address] Dr. Carrington Chandler PROF 14(COMP METB)on 022 Albumin [Mass/Vol] 2.8 g/dL Critically low 3.4-5.0 [facility] Comment on above: Performed By: #### B MP #### [facility] [address] [place] [address] Dr. Carrington Chandler Albumin/Globulin [Mass ratio] 0.8 {ratio} Normal [facility] Comment on above: Performed By: #### B MP #### [facility] [address] [place] [address] Dr. Carrington Chandler ALP [Catalytic activity/Vol] 55 U/L Normal 46-116 [facility] Comment on above: Performed By: #### B MP #### [facility] [address] [place] [address] Dr. Carrington Chandler ALT [Catalytic activity/Vol] 22 U/L Normal 16-63 [facility] Comment on above: Performed By: #### B MP #### [facility] [address] [place] [address] Dr. Carrington Chandler Anion gap [Moles/Vol] 10.3 mmol/L Normal Th [facility] Comment on above: Performed By: #### B MP #### [facility] [address] [place] [address] Dr. Carrington Chandler AST [Catalytic activity/Vol] 22 U/L Normal 15-37 [facility] Comment on above: Performed By: #### B MP #### [facility] [address] [place] [address] Dr. Carrington Chandler Bilirubin [Mass/Vol] 0.2 mg/dL Normal 0.2-1.0 [facility] Comment on above: Performed By: #### B MP #### [facility] [address] [address] [address] Carrington Chandler Calcium [Mass/Vol] 8.0 mg/dL Critically low 8.5-10.[address] [facility] Comment on above: Performed By: #### B MP #### [facility] [address] [address] [address] Carrington Chandler Chloride [Moles/Vol] 105 mmol/L Normal 98-107 [facility] Comment on above: Performed By: #### B MP #### [facility] [address] [place] [address] Dr. Carrington Chandler CO2 [Moles/Vol] 28.1 mmol/L Normal 21.0-32.0 [facility] Comment on above: Performed By: #### B MP #### [facility] [address] [place] [address] Dr. Carrington Chandler Creatinine [Mass/Vol] 0.89 mg/dL Normal 0.70-1.30 [facility] Comment on above: Performed By: #### B MP #### [facility] [address] [place] [address] Dr. Carrington Chandler EGFR-AF MOLDOVAN >60 Normal >=60 [facility] Comment on above: Performed By: #### B MP #### [facility] [address] [place] [address] Dr. Carrington Chandler EGFR-NON AF MOLDOVAN >60 Normal >=60 [facility] Comment on above: Performed By: #### B MP #### [facility] [address] [place] [address] Dr. Carrington Chandler Globulin (S) [Mass/Vol] 3.7 g/dL Normal [facility] Comment on above: Performed By: #### B MP #### [facility] [address] [place] [address] Dr. Carrington Chandler Glucose [Mass/Vol] 124 mg/dL Critically high 74-106 T [facility] Comment on above: Performed By: #### B MP #### [facility] [address] [address] [address] Carrington Chandler Potassium [Moles/Vol] 3.4 mmol/L Critically low 3.5-5.1 [facility] Comment on above: Performed By: #### B MP #### [facility] [address] [address] [address] Carrington Chandler Protein [Mass/Vol] 6.5 g/dL Normal 6.4-8.2 [facility] Comment on above: Performed By: #### B MP #### [facility] [address] [address] [address] Carrington Chandler Sodium [Moles/Vol] 140 mmol/L Normal 136-145 [facility] Comment on above: Performed By: #### B MP #### [facility] [address] [place] [address] Dr. Carrington Chandler Urea nitrogen [Mass/Vol] 15.0 mg/dL Normal 7.0-18.0 [facility] Comment on above: Performed By: #### B MP #### [facility] [address] [place] [address] Dr. Carrington Chandler Urea nitrogen/Creatinine [Mass ratio] 16.9 mg/mg Normal [facility] Comment on above: Performed By: #### B MP #### [facility] [address] [place] [address] Dr. Carrington Chandler CBC AUTO DIFFon 07-09-2022 BASO # 0.0 103/ul Normal 0.0-0.1 [facility] Comment on above: Performed By: #### A MY, CMP, LIPA #### [facility] [address] [address] [address] Carrington Chandler Basophils/100 WBC (Bld) 0.2 % Normal 0.2-2.0 [facility] Comment on above: Performed By: #### A MY, CMP, LIPA #### [facility] [address] [place] [address] Dr. Carrington Chandler EO # 0.1 103/ul Normal 0.0-0.7 [facility] Comment on above: Performed By: #### A MY, CMP, LIPA #### [facility] [address] [place] [address] Dr. Carrington Chandler Eosinophils/100 WBC (Bld) 1.9 % Normal 0.9-7.[address] [facility] Comment on above: Performed By: #### A MY, CMP, LIPA #### [facility] [address] [place] [address] Dr. Carrington Chandler Erythrocyte distribution width (RBC) [Ratio] 12.6 % Normal 11.0-15.[address] [facility] Comment on above: Performed By: #### A MY, CMP, LIPA #### [facility] [address] [place] [address] Dr. Carrington Chandler Hematocrit (Bld) [Volume fraction] 38.8 % Critically low 42.0-54.0 [facility] Comment on above: Performed By: #### A MY, CMP, LIPA #### [facility] [address] [place] [address] Dr. Carrington Chandler Hemoglobin (Bld) [Mass/Vol] 12.9 g/dL Critically low 14.0-18.[address] [facility] Comment on above: Performed By: #### A MY, CMP, LIPA #### [facility] [address] [place] [address] Dr. Carrington Chandler IG # 0.01 10e3/ul Normal 0.00-0.[address] [facility] Comment on above: Performed By: #### A MY, CMP, LIPA #### [facility] [address] [place] [address] Dr. Carrington Chandler IG % 0.2 % Normal 0.0-0.[address] [facility] Comment on above: Performed By: #### A MY, CMP, LIPA #### [facility] [address] [place] [address] Dr. Carrington Chandler LYMPH # 1.7 103/ul Normal 1.2-3.[address] [facility] Comment on above: Performed By: #### A MY, CMP, LIPA #### [facility] [address] [place], [place] [id number] Dr. Carrington Chandler Lymphocytes/100 WBC (Bld) 34.7 % Normal 20.5-60.[address] [facility] Comment on above: Performed By: #### A MY, CMP, LIPA #### [facility] [address] [place] [address] Dr. Carrington Chandler MANUAL DIFF REQ NO Normal The [facility] Comment on above: Performed By: #### A MY, CMP, LIPA #### [facility] [address] [place] [address] Dr. Carrington Chandler MCH (RBC) [Entitic mass] 29.9 pg Normal 25.9-34.[address] [facility] Comment on above: Performed By: #### A MY, CMP, LIPA #### [facility] [address] [place] [address] Dr. Carrington Chandler MCHC (RBC) [Mass/Vol] 33.2 g/dL Normal 29.9-35.[address] [facility] Comment on above: Performed By: #### A MY, CMP, LIPA #### [facility] [address] [place] [address] Dr. Carrington Chandler MCV (RBC) [Entitic vol] 90.0 fL Normal 80.0-94.[address] [facility] Comment on above: Performed By: #### A MY, CMP, LIPA #### [facility] [address] [place] [address] Dr. Carrington Chandler MONO # 0.5 103/ul Normal 0.3-0.[address] [facility] Comment on above: Performed By: #### A MY, CMP, LIPA #### [facility] [address] [place] [address] Dr. Carrington Chandler Monocytes/100 WBC (Bld) 10.4 % Normal 1.7-12.[address] [facility] Comment on above: Performed By: #### A MY, CMP, LIPA #### [facility] [address] [place] [address] Dr. Carrington Chandler NEUT # 2.5 103/ul Normal 1.4-6.[address] [facility] Comment on above: Performed By: #### A MY, CMP, LIPA #### [facility] [address] [place] [address] Dr. Carrington Chandler Neutrophils/100 WBC (Bld) 52.6 % Normal 43.0-75.0 [facility] Comment on above: Performed By: #### A MY, CMP, LIPA #### [facility] [address] [place] [address] Dr. Carrington Chandler Platelet mean volume (Bld) [Entitic vol] 9.0 fL Critically low 9.5-13.5 [facility] Comment on above: Performed By: #### A MY, CMP, LIPA #### [facility] [address] [place] [address] Dr. Carrington Chandler PLT 155 103/ul Normal 150-450 [facility] Comment on above: Performed By: #### A MY, CMP, LIPA #### [facility] [address] [place] [address] Dr. Carrington Chandler RBC 4.31 106/ul Critically low 4.70-6.10 [facility] Comment on above: Performed By: #### A MY, CMP, LIPA #### [facility] [address] [place] [address] Dr. Carrington Chandler WBC 4.8 103/ul Normal 4.0-11.0 [facility] Comment on above: Performed By: #### A MY, CMP, LIPA #### [facility] [address] [place] [address] Dr. Carrington Chandler Covid-19 PCR ([facility])on 06-25 SARS-CoV-2 (COVID-19) RNA CHARLIE+probe Ql (Unsp spec) Not detected Normal NOT DETECTED The [facility] Comment on above: Result Comment: When [...] for this test is supported by the [place] of Health and Human Service's declaration that [...] used). Performed By: #### C MP #### [facility] [address] [place] [address] Dr. Carrington Chandler ER URINE PROFILEon 2 Bilirubin Ql (U) Negative Normal NEGATIVE The [facility] Comment on above: Performed By: #### C MP #### [facility] [address] [place] [address] Dr. Carrington Chandler Clarity (U) CLEAR Normal CLEAR The [facility] Comment on above: Performed By: #### C MP #### [facility] [address] [place] [address] Dr. Carrington Chandler Color (U) LT. YELLOW Normal YELLOW [facility] Comment on above: Performed By: #### C MP #### [facility] [address] [place] [address] Dr. Carrington MELENDREZ A micrscopic examina tion will be performed if indicated. Normal The [facility] Comment on above: Performed By: #### C MP #### [facility] [address] [place] [address] Dr. Carrington Chandler Glucose Ql (U) Negative Normal NEGATIVE [facility] Comment on above: Performed By: #### C MP #### [facility] [address] [place] [address] Dr. Carrington Chandler Hemoglobin Ql (U) Negative Normal NEGATIVE The [facility] Comment on above: Performed By: #### C MP #### [facility] [address] [place] [address] Dr. Carrington Chandler Ketones Ql (U) Negative Normal NEGATIVE [facility] Comment on above: Performed By: #### C MP #### [facility] [address] [address] [address] Carrington Chandler LEUKOCYTES Negative Normal NEGATIVE [facility] Comment on above: Performed By: #### C MP #### [facility] [address] [place] [address] Dr. Carrington Chandler Nitrite Ql (U) Negative Normal NEGATIVE [facility] Comment on above: Performed By: #### C MP #### [facility] [address] [place] [address] Dr. Carrington Chandler pH (U) 6.0 [pH] Normal 5-9 [facility] Comment on above: Performed By: #### C MP #### [facility] [address] [place] [address] Dr. Carrington Chandler SPEC GRAVITY 1.010 Normal 1.005-<=1. 025 [facility] Comment on above: Performed By: #### C MP #### [facility] [address] [place] [address] Dr. Carrington Chandler UA PROTEIN Negative Normal NEGATIVE/ TRACE The [facility] Comment on above: Performed By: #### C MP #### [facility] [address] [place] [address] Dr. Carrington Chandler UR MICRO IND NOT INDICATED Normal [facility] Comment on above: Performed By: #### C MP #### [facility] [address] [place] [address] Dr. Carrington Chandler Urobilinogen Qn (U) 0.2 {Lars'U}/dL Normal 0.2 - 1. 0 [facility] Comment on above: Performed By: #### C MP #### [facility] [address] [place] [address] Dr. Carrington Chandler PROF CHEM 8 (BAS METB)on Anion gap [Moles/Vol] 6.6 mmol/L Normal [facility] Comment on above: Performed By: #### B MP #### [facility] [address] [place] [address] Dr. Carrington Chandler Calcium [Mass/Vol] 8.2 mg/dL Critically low 8.5-10.[address] [facility] Comment on above: Performed By: #### B MP #### [facility] [address] [address] [address] Carrington Chandler Chloride [Moles/Vol] 102 mmol/L Normal 98-107 [facility] Comment on above: Performed By: #### B MP #### [facility] [address] [address] [address] Carrington Chandler CO2 [Moles/Vol] 31.2 mmol/L Normal 21.0-32.0 [facility] Comment on above: Performed By: #### B MP #### [facility] [address] [address] [address] Carrington Chandler Creatinine [Mass/Vol] 0.90 mg/dL Normal 0.70-1.30 [facility] Comment on above: Performed By: #### B MP #### [facility] [address] [place] [address] Dr. Carrington Chandler EGFR-AF MOLDOVAN >60 Normal >=60 [facility] Comment on above: Performed By: #### B MP #### [facility] [address] [address] [address] Carrington Chandler EGFR-NON AF MOLDOVAN >60 Normal >=60 [facility] Comment on above: Performed By: #### B MP #### [facility] [address] [place] [address] Dr. Carrington Chandler Glucose [Mass/Vol] 100 mg/dL Normal 74-106 The [facility] Comment on above: Performed By: #### B MP #### [facility] [address] [address] [address] Carrington Chandler Potassium [Moles/Vol] 3.8 mmol/L Normal 3.5-5.1 [facility] Comment on above: Performed By: #### B MP #### [facility] [address] [address] [address] Carrington Chandler Sodium [Moles/Vol] 136 mmol/L Normal 136-145 [facility] Comment on above: Performed By: #### B MP #### [facility] [address] [address] [address] Carrington Chandler Urea nitrogen [Mass/Vol] 16.0 mg/dL Normal 7.0-18.0 [facility] Comment on above: Performed By: #### B MP #### [facility] [address] [place] [address] Dr. Carrington Chandler Urea nitrogen/Creatinine [Mass ratio] 17.8 mg/mg Normal [facility] Comment on above: Performed By: #### B MP #### [facility] [address] [place] [address] Dr. Carrington Chandler XR CHEST 1 Von [...] TEE LEWIS Date: 2022-07-09 20:51 Normal [address] [facility] AMYLASEon 07-08-2022 Amylase [Catalytic activity/Vol] 40 U/L Normal 25-[address] [facility] Comment on above: Performed By: #### A MY, CMP, LIPA #### [facility] [address] [place] [address] Dr. Carrington Chandler CBC AUTO DIFFon 07-08-2022 BASO # 0.0 103/ul Normal 0.0-0.1 [facility] Comment on above: Performed By: #### C BC #### [facility] [address] [place] [address] Dr. Carrington Chandler Basophils/100 WBC (Bld) 0.3 % Normal 0.2-2.[address] [facility] Comment on above: Performed By: #### C BC #### [facility] [address] [place] [address] Dr. Carrington Chandler EO # 0.1 103/ul Normal 0.0-0.7 [facility] Comment on above: Performed By: #### C BC #### [facility] [address] [place] [address] Dr. Carrington Chandler Eosinophils/100 WBC (Bld) 1.2 % Normal 0.9-7.0 [facility] Comment on above: Performed By: #### C BC #### [facility] [address] [place] [address] Dr. Carrington Chandler Erythrocyte distribution width (RBC) [Ratio] 12.9 % Normal 11.0-15.0 [facility] Comment on above: Performed By: #### C BC #### [facility] [address] [place] [address] Dr. Carrington Chandler Hematocrit (Bld) [Volume fraction] 43.2 % Normal 42.0-54.0 [facility] Comment on above: Performed By: #### C BC #### [facility] [address] [place] [address] Dr. Carrington Chandler Hemoglobin (Bld) [Mass/Vol] 14.4 g/dL Normal 14.0-18.0 [facility] Comment on above: Performed By: #### C BC #### [facility] [address] [place] [address] Dr. Carrington Chandler IG # 0.02 10e3/ul Normal 0.00-0.03 [facility] Comment on above: Performed By: #### C BC #### [facility] [address] [place] [address] Dr. Carrington Chandler IG % 0.3 % Normal 0.0-0.[address] [facility] Comment on above: Performed By: #### C BC #### [facility] [address] [place] [address] Dr. Carrington Chandler LYMPH # 1.6 103/ul Normal 1.2-3.[address] [facility] Comment on above: Performed By: #### C BC #### [facility] [address] [place] [address] Dr. Crarington Chandler Lymphocytes/100 WBC (Bld) 24.0 % Normal 20.5-60.[address] [facility] Comment on above: Performed By: #### C BC #### [facility] [address] [place] [address] Dr. Carrington Chandler MANUAL DIFF REQ NO Normal The [facility] Comment on above: Performed By: #### C BC #### [facility] [address] [place] [address] Dr. Carrington Chandler MCH (RBC) [Entitic mass] 30.2 pg Normal 25.9-34.0 [facility] Comment on above: Performed By: #### C BC #### [facility] [address] [place] [address] Dr. Carrington Chandler MCHC (RBC) [Mass/Vol] 33.3 g/dL Normal 29.9-35.[address] [facility] Comment on above: Performed By: #### C BC #### [facility] [address] [place] [address] Dr. Carrington Chandler MCV (RBC) [Entitic vol] 90.6 fL Normal 80.0-94.0 [facility] Comment on above: Performed By: #### C BC #### [facility] [address] [place] [address] Dr. Carrington Chandler MONO # 0.6 103/ul Normal 0.3-0.8 [facility] Comment on above: Performed By: #### C BC #### [facility] [address] [place] [address] Dr. Carrington Chandler Monocytes/100 WBC (Bld) 9.4 % Normal 1.7-12.0 [facility] Comment on above: Performed By: #### C BC #### [facility] [address] [place] [address] Dr. Carrington Chandler NEUT # 4.4 103/ul Normal 1.4-6.[address] [facility] Comment on above: Performed By: #### C BC #### [facility] [address] [place] [address] Dr. Carrington Chandler Neutrophils/100 WBC (Bld) 64.8 % Normal 43.0-75.0 [facility] Comment on above: Performed By: #### C BC #### [facility] [address] [place] [address] Dr. Carrington Chandler Platelet mean volume (Bld) [Entitic vol] 9.5 fL Normal 9.5-13.5 [facility] Comment on above: Performed By: #### C BC #### [facility] [address] [place] [address] Dr. Carrington Chandler PLT 174 103/ul Normal 150-[address] [facility] Comment on above: Performed By: #### C BC #### [facility] [address] [place] [address] Dr. Carrington Chandler RBC 4.77 106/ul Normal 4.70-6.[address] [facility] Comment on above: Performed By: #### C BC #### [facility] [address] [place] [address] Dr. Carrington Chandler WBC 6.7 103/ul Normal 4.0-11.0 [facility] Comment on above: Performed By: #### C BC #### [facility] [address] [place] [address] Dr. Carrington Chandler [facility] SARS-CoV-2 (COVID-19) RNA CHARLIE+probe Ql (Unsp spec) Not detected Normal NOT DETECTED The [facility] Comment on above: Result Comment: When [...] for this test is supported by the [employer] of Health and Human Service's declaration that [...] used). Performed By: #### B MP #### [facility] [address] [place] [address] Dr. Carrington Chandler INFLUENZA A AND B AGon 07-08 INFLUANE SEE BELOW Normal The [facility] Comment on above: Result Comment: Nega tive for Flu A protein angiten. Infection due to Flu A cannot be ruled out. Flu A angiten in the sample may be below the detection limit of the test. Performed By: #### B MP #### [facility] [address] [place] [address] Dr. Carrington Chandler INFLUBNEG SEE BELOW Normal [facility] Comment on above: Result Comment: Nega tive for Flu B protein antigen. Infection due to Flu B cannot be ruled out. Flu B antigen in the sample may be below the detection limit of the test. Performed By: #### B MP #### [facility] [address] [place] [address] Dr. Carrington Chandler INFLUENZA A AG Negative Normal NEGATIVE SEE COMMENT [facility] Comment on above: Performed By: #### B MP #### [facility] [address] [place] [address] Dr. Carrington Chandler INFLUENZA B AG Negative Normal NEGATIVE SEE COMMENT [facility] Comment on above: Performed By: #### B MP #### [facility] [address] [place] [address] Dr. Carrington Chandler INTERNAL CONTROLS Within Normal Limits Normal Wi thin Normal Limits The [facility] Comment on above: Performed By: #### B MP #### [facility] [address] [place] [address] Dr. Carrington Chandler LIPASEon 07-08-2022 Lipase [Catalytic activity/Vol] 195.0 U/L Normal 73.0-393.[address] [facility] Comment on above: Performed By: #### A MY, CMP, LIPA #### [facility] [address] [place] [address] Dr. Carrington Chandler PROF 14(COMP METB)on 022 Albumin [Mass/Vol] 3.4 g/dL Normal 3.4-5.0 The [facility] Comment on above: Performed By: #### A MY, CMP, LIPA #### [facility] [address] [address] [address] Carrington Chandler Albumin/Globulin [Mass ratio] 0.8 {ratio} Normal [facility] Comment on above: Performed By: #### A MY, CMP, LIPA #### [facility] [address] [address] [address] Carrington Chandler ALP [Catalytic activity/Vol] 61 U/L Normal 46-116 [facility] Comment on above: Performed By: #### A MY, CMP, LIPA #### [facility] [address] [address] [address] Carrington Chandler ALT [Catalytic activity/Vol] 26 U/L Normal 16-63 [facility] Comment on above: Performed By: #### A MY, CMP, LIPA #### [facility] [address] [place] [address] Dr. Carrington Chandler Anion gap [Moles/Vol] 11.0 mmol/L Normal [facility] Comment on above: Performed By: #### A MY, CMP, LIPA #### [facility] [address] [address] [address] Carrington Chandler AST [Catalytic activity/Vol] 30 U/L Normal 15-37 [facility] Comment on above: Performed By: #### A MY, CMP, LIPA #### [facility] [address] [address] [address] Carrington Chandler Bilirubin [Mass/Vol] 0.3 mg/dL Normal 0.2-1.0 [facility] Comment on above: Performed By: #### A MY, CMP, LIPA #### [facility] [address] [address] [address] Carrington Chandler Calcium [Mass/Vol] 8.4 mg/dL Critically low 8.5-10.1 [facility] Comment on above: Performed By: #### A MY, CMP, LIPA #### [facility] [address] [address] [address] Carrington Chandler Chloride [Moles/Vol] 102 mmol/L Normal 98-107 [facility] Comment on above: Performed By: #### A MY, CMP, LIPA #### [facility] [address] [address] [address] Carrington Chandler CO2 [Moles/Vol] 28.1 mmol/L Normal 21.0-32.0 [facility] Comment on above: Performed By: #### A MY, CMP, LIPA #### [facility] [address] [place] [address] Dr. Carrington Chandler Creatinine [Mass/Vol] 0.99 mg/dL Normal 0.70-1.30 [facility] Comment on above: Performed By: #### A MY, CMP, LIPA #### [facility] [address] [place] [address] Dr. Carrington Chandler EGFR-AF MOLDOVAN >60 Normal >=60 [facility] Comment on above: Performed By: #### A MY, CMP, LIPA #### [facility] [address] [place] [address] Dr. Carrington Chandler EGFR-NON AF MOLDOVAN >60 Normal >=60 [facility] Comment on above: Performed By: #### A MY, CMP, LIPA #### [facility] [address] [place] [address] Dr. Carrington Chandler Globulin (S) [Mass/Vol] 4.3 g/dL Normal [facility] Comment on above: Performed By: #### A MY, CMP, LIPA #### [facility] [address] [place] [address] Dr. Carrington Chandler Glucose [Mass/Vol] 107 mg/dL Critically high 74-106 [facility] Comment on above: Performed By: #### A MY, CMP, LIPA #### [facility] [address] [place] [address] Dr. Carrington Chandler Potassium [Moles/Vol] 4.1 mmol/L Normal 3.5-5.1 [facility] Comment on above: Performed By: #### A MY, CMP, LIPA #### [facility] [address] [place] [address] Dr. Carrington Chandler Protein [Mass/Vol] 7.7 g/dL Normal 6.4-8.2 [facility] Comment on above: Performed By: #### A MY, CMP, LIPA #### [facility] [address] [place] [address] Dr. Carrington Chandler Sodium [Moles/Vol] 137 mmol/L Normal 136-145 [facility] Comment on above: Performed By: #### A MY, CMP, LIPA #### [facility] [address] [place] [address] Dr. Carrington Chandler Urea nitrogen [Mass/Vol] 23.0 mg/dL Critically high 7.0-18.0 [facility] Comment on above: Performed By: #### A MY, CMP, LIPA #### [facility] [address] [place] [address] Dr. Carrington Chandler Urea nitrogen/Creatinine [Mass ratio] 23.2 mg/mg Normal [facility] Comment on above: Performed By: #### A MY, CMP, LIPA #### [facility] [address] [place] [address] Dr. Carrington Chandler CBC AUTO DIFFon 07-03-2022 BASO # 0.0 103/ul Normal 0.0-0.1 [facility] Comment on above: Performed By: #### C MP #### [facility] [address] [place] [address] Dr. Carrington Chandler Basophils/100 WBC (Bld) 0.5 % Normal 0.2-2.[address] [facility] Comment on above: Performed By: #### C MP #### [facility] [address] [place] [address] Dr. Carrington Chandler EO # 0.3 103/ul Normal 0.0-0.[address] [facility] Comment on above: Performed By: #### C MP #### [facility] [address] [place] [address] Dr. Carrington Chandler Eosinophils/100 WBC (Bld) 4.7 % Normal 0.9-7.[address] [facility] Comment on above: Performed By: #### C MP #### [facility] [address] [place] [address] Dr. Carrington Chandler Erythrocyte distribution width (RBC) [Ratio] 12.7 % Normal 11.0-15.0 [facility] Comment on above: Performed By: #### C MP #### [facility] [address] [place] [address] Dr. Carrington Chandler Hematocrit (Bld) [Volume fraction] 38.8 % Critically low 42.0-54.0 [facility] Comment on above: Performed By: #### C MP #### [facility] [address] [place] [address] Dr. Carrington Chandler Hemoglobin (Bld) [Mass/Vol] 13.2 g/dL Critically low 14.0-18.0 [facility] Comment on above: Performed By: #### C MP #### [facility] [address] [place] [address] Dr. Carrington Chandler IG # 0.01 10e3/ul Normal 0.00-0.03 [facility] Comment on above: Performed By: #### C MP #### [facility] [address] [place] [address] Dr. Carrington Chandler IG % 0.2 % Normal 0.0-0.5 [facility] Comment on above: Performed By: #### C MP #### [facility] [address] [place] [address] Dr. Carrington Chandler LYMPH # 1.4 103/ul Normal 1.2-3.[address] [facility] Comment on above: Performed By: #### C MP #### [facility] [address] [place] [address] Dr. Carrington Chandler Lymphocytes/100 WBC (Bld) 25.2 % Normal 20.5-60.[address] [facility] Comment on above: Performed By: #### C MP #### [facility] [address] [place] [address] Dr. Carrington Chandler MANUAL DIFF REQ NO Normal [facility] Comment on above: Performed By: #### C MP #### [facility] [address] [place] [address] Dr. Carrington Chandler MCH (RBC) [Entitic mass] 30.3 pg Normal 25.9-34.[address] [facility] Comment on above: Performed By: #### C MP #### [facility] [address] [place] [address] Dr. Carrington Chandler MCHC (RBC) [Mass/Vol] 34.0 g/dL Normal 29.9-35.[address] [facility] Comment on above: Performed By: #### C MP #### [facility] [address] [place] [address] Dr. Carrington Chandler MCV (RBC) [Entitic vol] 89.2 fL Normal 80.0-94.[address] [facility] Comment on above: Performed By: #### C MP #### [facility] [address] [place] [address] Dr. Carrington Chandler MONO # 0.6 103/ul Normal 0.3-0.[address] [facility] Comment on above: Performed By: #### C MP #### [facility] [address] [place] [address] Dr. Carrington Chandler Monocytes/100 WBC (Bld) 10.2 % Normal 1.7-12.[address] [facility] Comment on above: Performed By: #### C MP #### [facility] [address] [place] [address] Dr. Carrington Chandler NEUT # 3.3 103/ul Normal 1.4-6.[address] [facility] Comment on above: Performed By: #### C MP #### [facility] [address] [place] [address] Dr. Carrington Chandler Neutrophils/100 WBC (Bld) 59.2 % Normal 43.0-75.[address] [facility] Comment on above: Performed By: #### C MP #### [facility] [address] [place] [address] Dr. Carrington Chandler Platelet mean volume (Bld) [Entitic vol] 9.1 fL Critically low 9.5-13.[address] [facility] Comment on above: Performed By: #### C MP #### [facility] [address] [address] [address] Carrington Chandler PLT 199 103/ul Normal 150-[address] [facility] Comment on above: Performed By: #### C MP #### [facility] [address] [address] [address] Carrington Chandler RBC 4.35 106/ul Critically low 4.70-6.10 [facility] Comment on above: Performed By: #### C MP #### [facility] [address] [address] [address] Carrington Chandler WBC 5.5 103/ul Normal 4.0-11.0 [facility] Comment on above: Performed By: #### C MP #### [facility] [address] [place] [address] Dr. Carrington Chandler Covid-19 PCR ([facility])on SARS-CoV-2 (COVID-19) RNA CHARLIE+probe Ql (Unsp spec) Not detected Normal NOT DETECTED The [facility] Comment on above: Result Comment: When [...] for this test is supported by the [place] of Health and Human Service's declaration that [...] used). Performed By: #### B MP #### [facility] [address] [place] [address] Dr. Carrington Chandler PROF 14(COMP METB)on 022 Albumin [Mass/Vol] 3.8 g/dL Normal 3.4-5.0 [facility] Comment on above: Performed By: #### C MP #### [facility] [address] [address] [address] Carrington Chandler Albumin/Globulin [Mass ratio] 1.0 {ratio} Normal [facility] Comment on above: Performed By: #### C MP #### [facility] [address] [address] [address] Carrington Chandler ALP [Catalytic activity/Vol] 69 U/L Normal 46-116 [facility] Comment on above: Performed By: #### C MP #### [facility] [address] [address] [address] Carrington Chandler ALT [Catalytic activity/Vol] 18 U/L Normal 16-63 [facility] Comment on above: Performed By: #### C MP #### [facility] [address] [place] [address] Dr. Carrington Chandler Anion gap [Moles/Vol] 13.3 mmol/L Normal [facility] Comment on above: Performed By: #### C MP #### [facility] [address] [place] [address] Dr. Carrington Chandler AST [Catalytic activity/Vol] 19 U/L Normal 15-37 [facility] Comment on above: Performed By: #### C MP #### [facility] [address] [place] [address] Dr. Carrington Chandler Bilirubin [Mass/Vol] 0.3 mg/dL Normal 0.2-1.0 [facility] Comment on above: Performed By: #### C MP #### [facility] [address] [place] [address] Dr. Carrington Chandler Calcium [Mass/Vol] 9.0 mg/dL Normal 8.5-10.1 [facility] Comment on above: Performed By: #### C MP #### [facility] [address] [place] [address] Dr. Carrington Chandler Chloride [Moles/Vol] 101 mmol/L Normal 98-107 [facility] Comment on above: Performed By: #### C MP #### [facility] [address] [address] [address] Carrington Chandler CO2 [Moles/Vol] 26.7 mmol/L Normal 21.0-32.0 [facility] Comment on above: Performed By: #### C MP #### [facility] [address] [place] [address] Dr. Carrington Chandler Creatinine [Mass/Vol] 1.06 mg/dL Normal 0.70-1.[address] [facility] Comment on above: Performed By: #### C MP #### [facility] [address] [place] [address] Dr. Carrington Chandler EGFR-AF MOLDOVAN >60 Normal >=60 [facility] Comment on above: Performed By: #### C MP #### [facility] [address] [place] [address] Dr. Carrington Chandler EGFR-NON AF MOLDOVAN >60 Normal >=[address] [facility] Comment on above: Performed By: #### C MP #### [facility] [address] [place] [address] Dr. Carrington Chandler Globulin (S) [Mass/Vol] 3.8 g/dL Normal [facility] Comment on above: Performed By: #### C MP #### [facility] [address] [place] [address] Dr. Carrington Chandler Glucose [Mass/Vol] 98 mg/dL Normal 74-106 [facility] Comment on above: Performed By: #### C MP #### [facility] [address] [place] [address] Dr. Carrington Chandler Potassium [Moles/Vol] 4.0 mmol/L Normal 3.5-5.[address] [facility] Comment on above: Performed By: #### C MP #### [facility] [address] [place] [address] Dr. Carrington Chandler Protein [Mass/Vol] 7.6 g/dL Normal 6.4-8.2 [facility] Comment on above: Performed By: #### C MP #### [facility] [address] [place] [address] Dr. Carrington Chandler Sodium [Moles/Vol] 137 mmol/L Normal 136-145 [facility] Comment on above: Performed By: #### C MP #### [facility] [address] [address] [address] Carrington Chandler Urea nitrogen [Mass/Vol] 21.0 mg/dL Critically high 7.0-18.0 [facility] Comment on above: Performed By: #### C MP #### [facility] [address] [address] [address] Carrington Chandler Urea nitrogen/Creatinine [Mass ratio] 19.8 mg/mg Normal [facility] Comment on above: Performed By: #### C MP #### [facility] [address] [address] [address] Carrington Chandler XR CHEST 1 Von [...] CYNTHIA VASQUEZ Date: 2022-07-03 21:16 Normal [address] [facility] CBC AUTO DIFFon 02-03-2022 BASO # 0.0 103/ul Normal 0.0-0.1 [facility] Comment on above: Performed By: #### C BC #### [facility] [address] [address] [address] Carrington Chandler Basophils/100 WBC (Bld) 0.3 % Normal 0.2-2.0 [facility] Comment on above: Performed By: #### C BC #### [facility] [address] [place] [address] Dr. Carrington Chandler EO # 0.1 103/ul Normal 0.0-0.[address] [facility] Comment on above: Performed By: #### C BC #### [facility] [address] [place] [address] Dr. Carrington Chandler Eosinophils/100 WBC (Bld) 0.9 % Normal 0.9-7.[address] [facility] Comment on above: Performed By: #### C BC #### [facility] [address] [place] [address] Dr. Carrington Chandler Erythrocyte distribution width (RBC) [Ratio] 13.9 % Normal 11.0-15.0 [facility] Comment on above: Performed By: #### C BC #### [facility] [address] [place] [address] Dr. Carrington Chandler Hematocrit (Bld) [Volume fraction] 40.4 % Critically low 42.0-54.0 [facility] Comment on above: Performed By: #### C BC #### [facility] [address] [place] [address] Dr. Carrington Chandler Hemoglobin (Bld) [Mass/Vol] 13.4 g/dL Critically low 14.0-18.0 [facility] Comment on above: Performed By: #### C BC #### [facility] [address] [place] [address] Dr. Carrington Chandler IG # 0.03 10e3/ul Normal 0.00-0.[address] [facility] Comment on above: Performed By: #### C BC #### [facility] [address] [place] [address] Dr. Carrington Chandler IG % 0.3 % Normal 0.0-0.[address] [facility] Comment on above: Performed By: #### C BC #### [facility] [address] [place] [address] Dr. Carrington Chandler LYMPH # 1.5 103/ul Normal 1.2-3.[address] [facility] Comment on above: Performed By: #### C BC #### [facility] [address] [place] [address] Dr. Carrington Chandler Lymphocytes/100 WBC (Bld) 12.3 % Critically low 20.5-60.[address] [facility] Comment on above: Performed By: #### C BC #### [facility] [address] [place] [address] Dr. Carrington Chandler MANUAL DIFF REQ NO Normal [facility] Comment on above: Performed By: #### C BC #### [facility] [address] [place] [address] Dr. Carrington Chandler MCH (RBC) [Entitic mass] 30.0 pg Normal 25.9-34.[address] [facility] Comment on above: Performed By: #### C BC #### [facility] [address] [place] [address] Dr. Carrington Chandler MCHC (RBC) [Mass/Vol] 33.2 g/dL Normal 29.9-35.[address] [facility] Comment on above: Performed By: #### C BC #### [facility] [address] [place] [address] Dr. Carrington Chandler MCV (RBC) [Entitic vol] 90.6 fL Normal 80.0-94.[address] [facility] Comment on above: Performed By: #### C BC #### [facility] [address] [place] [address] Dr. Carrington Chandler MONO # 1.0 103/ul Critically high 0.3-0.8 [facility] Comment on above: Performed By: #### C BC #### [facility] [address] [place] [address] Dr. Carrington Chandler Monocytes/100 WBC (Bld) 8.5 % Normal 1.7-12.[address] [facility] Comment on above: Performed By: #### C BC #### [facility] [address] [place] [address] Dr. Carrington Chandler NEUT # 9.2 103/ul Critically high 1.4-6.5 [facility] Comment on above: Performed By: #### C BC #### [facility] [address] [place] [address] Dr. Carrington Chandler Neutrophils/100 WBC (Bld) 77.7 % Critically high 43.0-75.0 [facility] Comment on above: Performed By: #### C BC #### [facility] [address] [address] [address] Carrington Chandler Platelet mean volume (Bld) [Entitic vol] 9.5 fL Normal 9.5-13.5 [facility] Comment on above: Performed By: #### C BC #### [facility] [address] [place] [address] Dr. Carrington Chandler PLT 204 103/ul Normal 150-450 [facility] Comment on above: Performed By: #### C BC #### [facility] [address] [address] [address] Carrington Chandler RBC 4.46 106/ul Critically low 4.70-6.10 [facility] Comment on above: Performed By: #### C BC #### [facility] [address] [address] [address] Carrington Chandler WBC 11.9 103/ul Critically high 4.0-11.0 [facility] Comment on above: Performed By: #### C BC #### [facility] [address] [place] [address] Dr. Carrington Chandler [facility] SARS-CoV-2 (COVID-19) RNA CHARLIE+probe Ql (Unsp spec) Not detected Normal NOT DETECTED [facility] Comment on above: Result Comment: When [...] for this test is supported by the [place] of Health and Human Service's declaration that [...] used). Performed By: #### C VDTB #### [facility] [address] [place] [address] Dr. Carrington Chandler PROF 14(COMP METB)on 022 Albumin [Mass/Vol] 3.7 g/dL Normal 3.4-5.0 [facility] Comment on above: Performed By: #### C MP #### [facility] [address] [place] [address] Dr. Carrington Chandler Albumin/Globulin [Mass ratio] 0.9 {ratio} Normal [facility] Comment on above: Performed By: #### C MP #### [facility] [address] [place] [address] Dr. Carrington Chandler ALP [Catalytic activity/Vol] 62 U/L Normal 46-116 [facility] Comment on above: Performed By: #### C MP #### [facility] [address] [place] [address] Dr. Carrington Chandler ALT [Catalytic activity/Vol] 21 U/L Normal 16-63 [facility] Comment on above: Performed By: #### C MP #### [facility] [address] [place] [address] Dr. Carrington Chandler Anion gap [Moles/Vol] 12.3 mmol/L Normal [facility] Comment on above: Performed By: #### C MP #### [facility] [address] [place] [address] Dr. Carrington Chandler AST [Catalytic activity/Vol] 13 U/L Critically low 15-37 [facility] Comment on above: Performed By: #### C MP #### [facility] [address] [place] [address] Dr. Carrington Chandler Bilirubin [Mass/Vol] 0.5 mg/dL Normal 0.2-1.0 [facility] Comment on above: Performed By: #### C MP #### [facility] [address] [address] [address] Carrington Chandler Calcium [Mass/Vol] 9.1 mg/dL Normal 8.5-10.1 [facility] Comment on above: Performed By: #### C MP #### [facility] [address] [address] [address] Carrington Chandler Chloride [Moles/Vol] 102 mmol/L Normal 98-107 [facility] Comment on above: Performed By: #### C MP #### [facility] [address] [address] [address] Carrington Chandler CO2 [Moles/Vol] 24.9 mmol/L Normal 21.0-32.0 [facility] Comment on above: Performed By: #### C MP #### [facility] [address] [place] [address] Dr. Carrington Chandler Creatinine [Mass/Vol] 1.36 mg/dL Critically high 0.70-1.30 [facility] Comment on above: Performed By: #### C MP #### [facility] [address] [address] [address] Carrington Chandler EGFR-AF MOLDOVAN >60 Normal >=60 [facility] Comment on above: Performed By: #### C MP #### [facility] [address] [place] [address] Dr. Carrington Chandler EGFR-NON AF MOLDOVAN 53 mL/min/1.73m2 Critically low >=60 [facility] Comment on above: Performed By: #### C MP #### [facility] [address] [place] [address] Dr. Carrington Chandler Globulin (S) [Mass/Vol] 3.9 g/dL Normal [facility] Comment on above: Performed By: #### C MP #### [facility] [address] [place] [address] Dr. Carrington Chandler Glucose [Mass/Vol] 138 mg/dL Critically high 74-106 [facility] Comment on above: Performed By: #### C MP #### [facility] [address] [place] [address] Dr. Carrington Chandler Potassium [Moles/Vol] 4.2 mmol/L Normal 3.5-5.1 [facility] Comment on above: Performed By: #### C MP #### [facility] [address] [address] [address] Carrington Chandler Protein [Mass/Vol] 7.6 g/dL Normal 6.4-8.2 [facility] Comment on above: Performed By: #### C MP #### [facility] [address] [address] Dr. Carrington Chandler Sodium [Moles/Vol] 135 mmol/L Critically low 136-145 Th [facility] Comment on above: Performed By: #### C MP #### [facility] [address] [address] [address] Carrington Chandler Urea nitrogen [Mass/Vol] 24.0 mg/dL Critically high 7.0-18.0 [facility] Comment on above: Performed By: #### C MP #### [facility] [address] [address] [address] Carrington Chandler Urea nitrogen/Creatinine [Mass ratio] 17.6 mg/mg Normal [facility] Comment on above: Performed By: #### C MP #### [facility] [address] [address] [address] Carrington Chandler XR CHEST 1 Von [...] MARX Date: 2022-02-03 02:09 Normal [facility] Vital Signs Date Time Vital Sign Value Performing Clinician Facility 09-20-2024 09:17-0500 Body height 167.6 cm Alok Akbar RODAS Work Phone: [facility] 09-20-2024 09:17-0500 Body mass index (BMI) [Ratio] 39.22 kg/m2 Alok Akbar DO Work Phone: [facility] 09-20-2024 09:17-0500 Body weight 110.22 kg Alok Headleykan RODAS Work Phone: [facility] 09-20-2024 09:17-0500 Diastolic blood pressure 78 mm[Hg] Alok Headleykan RODAS Work Phone: [facility] 09-20-2024 09:17-0500 Heart rate 115 /min Alok Headleykan RODAS Work Phone: [facility] 09-20-2024 09:17-0500 Systolic blood pressure 124 mm[Hg] Alok Webber DO Work Phone: [facility] 09-14-2024 10:50-0500 Body height 170.2 cm Rom Pierre MD Work Phone: [facility] 09-14-2024 10:50-0500 Body mass index (BMI) [Ratio] 38.53 kg/m2 Rom Pierre MD Work Phone: [facility] 09-14-2024 10:50-0500 Body temperature 97.39 [degF] Rom Pierre MD Work Phone: [facility] 09-14-2024 10:50-0500 Body weight 111.58 kg Rom Pierre MD Work Phone: [facility] 09-14-2024 10:50-0500 Diastolic blood pressure 72 mm[Hg] Rom Pierre MD Work Phone: [facility] 09-14-2024 10:50-0500 Heart rate 96 /min Rom Pierre MD Work Phone: [facility] 09-14-2024 10:50-0500 Respiratory rate 16 /min Rom Pierre MD Work Phone: [facility] 09-14-2024 10:50-0500 SaO2% (BldA) [Mass fraction] 96 % Rom Pierre MD Work Phone: [facility] 09-14-2024 10:50-0500 Systolic blood pressure 126 mm[Hg] Rom Pierre MD Work Phone: [facility] 05-29-2024 15:05-0500 Body height 170.18 cm [facility] 05-29-2024 15:05-0500 Body mass index (BMI) [Ratio] 37.4 kg/m2 [facility] 05-29-2024 15:05-0500 Body weight 108.4 kg [facility] 05-29-2024 15:05-0500 Diastolic blood pressure 69 mm[Hg] [facility] 05-29-2024 15:05-0500 Heart rate 93 /min [facility] 05-29-2024 15:05-0500 SaO2% (BldA) [Mass fraction] 93 % [facility] 05-29-2024 15:05-0500 Systolic blood pressure 124 mm[Hg] [facility] 05-11-2024 14:52-0400 Diastolic blood pressure 72 mm[Hg] [facility] 05-11-2024 14:52-0400 Heart rate 108 /min [facility] 05-11-2024 14:52-0400 SaO2% (BldA) [Mass fraction] 95 % [facility] 05-11-2024 14:52-0400 Systolic blood pressure 118 mm[Hg] [facility] 03-09-2024 10:23-0400 Body height 170.2 cm Rom Pierre MD Work Phone: [facility] 03-09-2024 10:23-0400 Body mass index (BMI) [Ratio] 37.93 kg/m2 Rom Pierre MD Work Phone: [facility] 03-09-2024 10:23-0400 Body weight 109.86 kg Rom Pierre MD Work Phone: [facility] 03-09-2024 10:23-0400 Diastolic blood pressure 86 mm[Hg] Rom Pierre MD Work Phone: [facility] 03-09-2024 10:23-0400 Heart rate 93 /min Rom Pierre MD Work Phone: [facility] 03-09-2024 10:23-0400 SaO2% (BldA) [Mass fraction] 95 % Rom Pierre MD Work Phone: [facility] 03-09-2024 10:23-0400 Systolic blood pressure 148 mm[Hg] Rom Pierre MD Work Phone: [facility] 02-24-2024 14:00-0400 Body height 170.18 cm [facility] 02-24-2024 14:00-0400 Body mass index (BMI) [Ratio] 37.7 kg/m2 [facility] 02-24-2024 14:00-0400 Body weight 109.31 kg [facility] 02-24-2024 14:00-0400 Diastolic blood pressure 63 mm[Hg] [facility] 02-24-2024 14:00-0400 Heart rate 99 /min [facility] 02-24-2024 14:00-0400 Systolic blood pressure 99 mm[Hg] [facility] 01-05-2024 12:56-0400 Body height 170.18 cm [facility] 01-05-2024 12:56-0400 Body mass index (BMI) [Ratio] 38.2 kg/m2 [facility] 01-05-2024 12:56-0400 Body weight 110.78 kg [facility] 01-05-2024 12:56-0400 Diastolic blood pressure 66 mm[Hg] [facility] 01-05-2024 12:56-0400 Heart rate 66 /min [facility] 01-05-2024 12:56-0400 SaO2% (BldA) [Mass fraction] 91 % [facility] 01-05-2024 12:56-0400 Systolic blood pressure 108 mm[Hg] [facility] 12-13-2023 13:44-0400 Body height 171.45 cm [facility] 12-13-2023 13:44-0400 Body mass index (BMI) [Ratio] 37.5 kg/m2 [facility] 12-13-2023 13:44-0400 Body weight 110.22 kg [facility] 12-13-2023 13:44-0400 Diastolic blood pressure 60 mm[Hg] [facility] 12-13-2023 13:44-0400 Heart rate 87 /min [facility] 12-13-2023 13:44-0400 SaO2% (BldA) [Mass fraction] 97 % [facility] 12-13-2023 13:44-0400 Systolic blood pressure 102 mm[Hg] [facility] 11-25-2023 14:56-0400 Body height 2042.16 cm [facility] 11-25-2023 14:56-0400 Body mass index (BMI) [Ratio] 0.2 kg/m2 [facility] 11-25-2023 14:56-0400 Body weight 110.22 kg [facility] 11-25-2023 14:56-0400 Diastolic blood pressure 68 mm[Hg] [facility] 11-25-2023 14:56-0400 Heart rate 71 /min [facility] 11-25-2023 14:56-0400 SaO2% (BldA) [Mass fraction] 93 % [facility] 11-25-2023 14:56-0400 Systolic blood pressure 116 mm[Hg] [facility] 10-26-2023 14:31-0400 Body height 171.45 cm [facility] 10-26-2023 14:31-0400 Body mass index (BMI) [Ratio] 37 kg/m2 [facility] 10-26-2023 14:31-0400 Body weight 108.86 kg [facility] 10-26-2023 14:31-0400 Diastolic blood pressure 65 mm[Hg] [facility] 10-26-2023 14:31-0400 Heart rate 78 /min [facility] 10-26-2023 14:31-0400 SaO2% (BldA) [Mass fraction] 97 % [facility] 10-26-2023 14:31-0400 Systolic blood pressure 103 mm[Hg] [facility] 10-04-2023 15:13-0400 Body height 171.45 cm [facility] 10-04-2023 15:13-0400 Body mass index (BMI) [Ratio] 36.7 kg/m2 [facility] 10-04-2023 15:13-0400 Body weight 108.04 kg [facility] 10-04-2023 15:13-0400 Diastolic blood pressure 63 mm[Hg] [facility] 10-04-2023 15:13-0400 Heart rate 72 /min [facility] 10-04-2023 15:13-0400 SaO2% (BldA) [Mass fraction] 93 % [facility] 10-04-2023 15:13-0400 Systolic blood pressure 95 mm[Hg] [facility] 09-14-2023 09:13-0500 Body height 170.2 cm Alok Webber DO Work Phone: [facility] 09-14-2023 09:13-0500 Body mass index (BMI) [Ratio] 36.81 kg/m2 Alok Webber DO Work Phone: [facility] 09-14-2023 09:130500 Body weight 106.59 kg Alok Webber DO Work Phone: [facility] 09-14-2023 09:13-0500 Diastolic blood pressure 70 mm[Hg] Alok Webber DO Work Phone: [facility] 09-14-2023 09:13-0500 Heart rate 72 /min Alok Webber DO Work Phone: [facility] 09-14-2023 09:13-0500 Systolic blood pressure 118 mm[Hg] Alok Webber Work Phone: [facility] 08-06-2023 13:30-0500 Body height 171.45 cm Brock Modi Other [facility] 08-06-2023 13:30-0500 Body mass index (BMI) [Ratio] 35.95 kg/m2 Brock Modi Other [facility] Other 08-06-2023 13:30-0500 Body weight 105.69 kg Brock Modi Other [facility] Other 08-06-2023 13:30-0500 Body weight 105.68 kg [facility] 08-06-2023 13:30-0500 Diastolic blood pressure 66 mm[Hg] Brock Modi Other [facility] 08-06-2023 13:30-0500 SaO2% (BldA) [Mass fraction] 95 % Brock Modi Other [facility] Other 08-06-2023 13:30-0500 Systolic blood pressure 108 mm[Hg] Brock Modi Other [facility] 08-05-2023 14:23-0500 Diastolic blood pressure 76 mm[Hg] Christopher Sewell MD Work Phone: [facility] 08-05-2023 14:23-0500 Heart rate 70 /min Christopher Sewell MD Work Phone: [facility] 08-05-2023 14:23-0500 Systolic blood pressure 108 mm[Hg] Christopher Sewell MD Work Phone: [facility] 08-05-2023 14:22-0500 Body height 170.2 cm [facility] 08-05-2023 14:22-0500 Body mass index (BMI) [Ratio] 36.43 kg/m2 Christopher Sewell MD Work Phone: [facility] 08-05-2023 14:22-0500 Body weight 105.51 kg Christopher Sewell MD Work Phone: [facility] 08-05-2023 14:22-0500 Respiratory rate 18 /min Christopher Sewell MD Work Phone: [facility] 06-24-2023 11:00-0500 Body height 171.45 cm Brock Modi Other [facility] Other 06-24-2023 11:00-0500 Body mass index (BMI) [Ratio] 34.56 kg/m2 Brock Modi Other [facility] Other 06-24-2023 11:00-0500 Body temperature 98.1 [degF] Brock Modi Other [facility] Other 06-24-2023 11:00-0500 Body weight 101.61 kg Brock Modi Other [facility] Other 06-24-2023 11:00-0500 Diastolic blood pressure 67 mm[Hg] Brock Modi Other [facility] Other 06-24-2023 11:00-0500 SaO2% (BldA) [Mass fraction] 95 % Brock Modi Other [facility] Other 06-24-2023 11:00-0500 Systolic blood pressure 109 mm[Hg] Brock Modi Other [facility] Other 03-16-2023 11:30-0400 Body height 171.45 cm Brock Modi Other [facility] Other 03-16-2023 11:30-0400 Body mass index (BMI) [Ratio] 33.48 kg/m2 Brock Modi Other [facility] Other 03-16-2023 11:30-0400 Body weight 98.43 kg Brock Modi Other [facility] Other 03-16-2023 11:30-0400 Diastolic blood pressure 67 mm[Hg] Brock Modi Other [facility] Other 03-16-2023 11:30-0400 SaO2% (BldA) [Mass fraction] 93 % Brock Modi Other [facility] Other 03-16-2023 11:30-0400 Systolic blood pressure 114 mm[Hg] Brock Modi Other [facility] Other 02-04-2023 13:30-0400 Body height 171.45 cm Brock Modi Other [facility] Other 02-04-2023 13:30-0400 Body mass index (BMI) [Ratio] 33.64 kg/m2 Brock Modi Other [facility] Other 02-04-2023 13:30-0400 Body weight 98.88 kg Brock Modi Other [facility] Other 02-04-2023 13:30-0400 Diastolic blood pressure 67 mm[Hg] Brock Modi Other [facility] Other 02-04-2023 13:30-0400 SaO2% (BldA) [Mass fraction] 96 % Brock Modi Other [facility] Other 02-04-2023 13:30-0400 Systolic blood pressure 117 mm[Hg] Brock Modi Other [facility] Other 12-24-2022 14:08-0400 Body height 167.64 cm Brock Modi Work Phone[facility] DO Work Phone: 12-24-2022 14:08-0400 Body mass index (BMI) [Ratio] 35.02 kg/m2 Brock Modi Work Phone: [facility] DO Work Phone: 12-24-2022 14:08-0400 Body surface area Derived from formula 2.07 m2 Brock Modi Work Phone: [facility] DO Work Phone: 12-24-2022 14:08-0400 Body weight 98.43 kg Brock Modi Work Phone: [facility] 250 DO Work Phone: 12-24-2022 14:08-0400 Diastolic blood pressure 80 mm[Hg] Brock Modi Work Phone: [facility] DO Work Phone: 12-24-2022 14:08-0400 Heart rate 115 /min Brock Modi Work Phone: [facility] 250 DO Work Phone: 12-24-2022 14:08-0400 Systolic blood pressure 124 mm[Hg] Brock Modi Work Phone: [facility] 250 DO Work Phone: 11-27-2022 11:00-0400 Body height 171.45 cm Wagner Marrufo Other [facility] Other 11-27-2022 11:00-0400 Body mass index (BMI) [Ratio] 33.48 kg/m2 Wagner Marrufo Other [facility] Other 11-27-2022 11:00-0400 Body weight 98.43 kg Wagner Marrufo Other [facility] Other 11-12-2022 12:45-0400 Body height 171.45 cm Brock Modi Other [facility] Other 11-12-2022 12:45-0400 Body mass index (BMI) [Ratio] 33.48 kg/m2 Brock Modi Other [facility] Other 11-12-2022 12:45-0400 Body weight 98.43 kg Brock Modi Other [facility] Other 11-12-2022 12:45-0400 Diastolic blood pressure 78 mm[Hg] Brock Modi Other [facility] Other 11-12-2022 12:45-0400 SaO2% (BldA) [Mass fraction] 92 % Brock Modi Other [facility] Other 11-12-2022 12:45-0400 Systolic blood pressure 122 mm[Hg] Brock Modi Other [facility] Other 10-21-2022 15:18-0400 Body height 167.64 cm Brock Modi Work Phone: [facility] [employer] 250 DO Work Phone: 10-21-2022 15:18-0400 Body mass index (BMI) [Ratio] 35.51 kg/m2 Brock Modi Work Phone: [facility] DO Work Phone: 10-21-2022 15:18-0400 Body surface area Derived from formula 2.08 m2 Brock Modi Work Phone: [facility] [employer] 250 DO Work Phone: 10-21-2022 15:18-0400 Body weight 99.79 kg Brock Modi Work Phone: [facility] [employer] 250 DO Work Phone: 10-21-2022 15:18-0400 Diastolic blood pressure 70 mm[Hg] Brock Modi Work Phone: [facility] [employer] 250 DO Work Phone: 10-21-2022 15:18-0400 Heart rate 84 /min Brock Modi Work Phone: [facility] [employer] 250 DO Work Phone: 10-21-2022 15:18-0400 Systolic blood pressure 126 mm[Hg] Brock Modi Work Phone: [facility] [employer] 250 DO Work Phone: 10-15-2022 11:15-0400 Body height 171.45 cm Brock Modi Other [facility] Other 10-15-2022 11:15-0400 Body mass index (BMI) [Ratio] 33.33 kg/m2 Brock Modi Other [facility] Other 10-15-2022 11:15-0400 Body weight 97.98 kg Brock Modi Other [facility] Other 10-15-2022 11:15-0400 Diastolic blood pressure 84 mm[Hg] Brock Modi Other [facility] Other 10-15-2022 11:15-0400 SaO2% (BldA) [Mass fraction] 94 % Brock Modi Other [facility] Other 10-15-2022 11:15-0400 Systolic blood pressure 122 mm[Hg] Brock Modi Other [facility] Other 10-13-2022 11:57-0400 Body temperature 97.4 [degF] MD Brock Modi Work Phone: [facility] 10-13-2022 11:57-0400 Diastolic blood pressure 85 mm[Hg] MD Brock Modi Work Phone: [facility] 10-13-2022 11:57-0400 Heart rate 107 /min MD Brock Modi Work Phone: [facility] 10-13-2022 11:57-0400 Inhaled oxygen flow rate 2 L/min MD Brock Modi Work Phone: [facility] 10-13-2022 11:57-0400 Respiratory rate 17 /min MD Brock Modi Work Phone: [facility] 10-13-2022 11:57-0400 SaO2% (BldA) [Mass fraction] 97 % MD Brock Modi Work Phone: [facility] 10-13-2022 11:57-0400 Systolic blood pressure 125 mm[Hg] MD Brock Modi Work Phone: [facility] 10-13-2022 04:32-0400 Body weight 97.52 kg MD Brock Modi Work Phone: [facility] 10-10-2022 08:46-0400 65 1 Brock Modi Work Phone: [facility] 250 DO Work Phone: Comment on above: [id number] 10-10-2022 04:57-0400 Body height 170.18 cm MD Brock Modi Work Phone: [facility] 09-09-2022 14:30-0500 Body height 171.45 cm Wagner Marrufo Other [facility] Other 09-09-2022 14:30-0500 Body mass index (BMI) [Ratio] 34.41 kg/m2 Wagner Marrufo Other [facility] Other 09-09-2022 14:30-0500 Body weight 101.15 kg Wagner Marrufo Other [facility] Other 08-13-2022 12:15-0500 Body height 171.45 cm Brock Modi Other [facility] Other 08-13-2022 12:15-0500 Body mass index (BMI) [Ratio] 34.38 kg/m2 Brock Modi Other [facility] Other 08-13-2022 12:15-0500 Body weight 101.06 kg Brock Modi Other [facility] Other 08-13-2022 12:15-0500 Diastolic blood pressure 84 mm[Hg] Brock Modi Other [facility] Other 08-13-2022 12:15-0500 SaO2% (BldA) [Mass fraction] 97 % Brock Modi Other [facility] Other 08-13-2022 12:15-0500 Systolic blood pressure 132 mm[Hg] Brock Modi Other [facility] Other 07-30-2022 12:30-0500 Body height 171.45 cm Brock Modi Other [facility] Other 07-30-2022 12:30-0500 Body mass index (BMI) [Ratio] 32.71 kg/m2 Brock Modi Other [facility] Other 07-30-2022 12:30-0500 Body weight 96.16 kg Brock Modi Other [facility] Other 07-30-2022 12:30-0500 Diastolic blood pressure 80 mm[Hg] Brock Modi Other [facility] Other 07-30-2022 12:30-0500 SaO2% (BldA) [Mass fraction] 97 % Brock Modi Other [facility] Other 07-30-2022 12:30-0500 Systolic blood pressure 122 mm[Hg] Brock Modi Other [facility] Other Encounters Encounter Date Encounter Type Care Provider Facility Start: 09-20-2024 End: 09-20-2024 ambulatory [facility] Start: 09-20-2024 End: 09-20-2024 Encounter for preprocedural cardiovascular examination [facility] Start: 09-20-2024 End: 09-20-2024 Office consultation new/estab patient 80 min Alok Webber DO Work Phone: [facility] Comment on above: Preop cardiovascular exam; Atherosclerosis of sitka coronary artery of sitka heart without angina pectoris; Ischemic cardiomyopathy; Past myocardial infarction; Mixed hyperlipidemia; Essential hypertension; Murmur, heart; Moderate chronic obstructive pulmonary disease (Multi); Lung mass; Obesity (BMI 35.0-39.9 without comorbidity); Current smoker Start: 09-20-2024 End: 09-20-2024 Patient encounter status Alok Webber DO Work Phone: [facility] Start: 09-14-2024 ambulatory BROCK MODI [facility] Start: 09-14-2024 End: 09-14-2024 Office outpatient visit 25 minutes Rom Pierre MD Work Phone: [facility] Comment on above: Infrarenal abdominal aortic aneurysm (AAA) without rupture ([facility]-H[facility]) (Primary Dx); Cigarette smoker motivated to quit; Bilateral carotid bruits Start: 09-14-2024 End: 09-14-2024 ambulatory [facility] Start: 09-12-2024 End: 09-12-2024 ambulatory [facility] Start: 09-11-2024 End: 09-12-2024 Clinisync Result Encounter Rom Pierre MD Work Phone: [facility] Unsolicited Start: 09-11-2024 End: 09-12-2024 Clinisync Result Encounter Rom Pierre MD Work Phone: [facility] Unsolicited Start: 05-29-2024 End: 05-29-2024 ambulatory [facility] Work Phone: Start: 05-29-2024 End: 05-29-2024 Patient encounter procedure [facility] Work Phone: Start: 05-26-2024 Non-patient / Non-visit [facility] Work Phone: Start: 05-11-2024 Non-patient / Non-visit [facility] Work Phone: Start: 05-08-2024 Non-patient / Non-visit [facility] Work Phone: Start: 05-07-2024 Non-patient / Non-visit [facility] Work Phone: Start: 03-09-2024 End: 03-09-2024 Office outpatient visit 25 minutes Rom Pierre MD Work Phone: [facility] Comment on above: Infrarenal abdominal aortic aneurysm (AAA) without rupture ([facility]-H[facility]) (Primary Dx); Bilateral carotid bruits; Cigarette smoker Start: 03-03-2024 End: 03-03-2024 [facility] Start: 02-24-2024 End: 02-24-2024 ambulatory [facility] Work Phone: Start: 02-24-2024 End: 02-24-2024 Patient encounter procedure [facility] Phys[facility] Work Phone: Start: 01-05-2024 End: 01-05-2024 ambulatory [facility] Work Phone: Start: 01-05-2024 End: 01-05-2024 Patient encounter procedure [facility] Physician [facility] Work Phone: Start: 12-13-2023 End: 12-13-2023 ambulatory [facility] Work Phone: Start: 12-13-2023 End: 12-13-2023 Patient encounter procedure [facility] Physician [facility] Work Phone: Start: 11-25-2023 End: 11-25-2023 Patient encounter procedure [facility] Work Phone: Start: 10-26-2023 End: 10-26-2023 ambulatory [facility] Work Phone: Start: 10-26-2023 End: 10-26-2023 Patient encounter procedure [facility] Work Phone: Start: 10-09-2023 Non-patient / Non-visit [facility] Physician [facility] Work Phone: Start: 10-04-2023 End: 10-04-2023 Patient encounter procedure [facility] Phys[facility] Work Phone: Start: 10-04-2023 Non-patient / Non-visit [facility] Work Phone: Start: 10-04-2023 End: 10-04-2023 ambulatory [facility] Start: 09-14-2023 End: 09-14-2023 Office outpatient visit 15 minutes Alok Webber DO Work Phone: [facility] Comment on above: Atherosclerosis of n ative coronary artery of sitka heart without angina pectoris; Essential hypertension, benign; Mixed hyperlipidemia; Ischemic cardiomyopathy; Past myocardial infarction; Moderate chronic obstructive pulmonary disease (CMS/HCC); Obesity (BMI 35.0-39.9 without comorbidity); Current smoker Start: 09-03-2023 End: 09-03-2023 ambulatory Brock Modi Other [facility] Other Start: 09-03-2023 Telephone encounter Brock Modi [facility] Start: 08-24-2023 Orders Only Kendal Carmen LPN [facility] Comment on above: Abdominal aortic ane urysm (AAA) without rupture, unspecified part (CMS-HCC) (Primary Dx); Obstructive chronic bronchitis with exacerbation (CMS-HCC); Obesity with body mass index (BMI) of 30.0 to 39.9 Start: 08-06-2023 End: 08-06-2023 ambulatory Brock Modi Other [facility] Other Start: 08-06-2023 Office outpatient vi sit 15 minutes Brock Modi [facility] Start: 08-06-2023 End: 08-06-2023 Patient encounter procedure [facility] Work Phone: Start: 08-05-2023 End: 08-05-2023 ambulatory Brock Modi Other [facility] Other Start: 08-05-2023 Telephone encounter Brock Ly [facility] Start: 08-05-2023 End: 08-05-2023 Office outpatient [...] 07-16-2023 End: 07-16-2023 ambulatory Brock Modi Other [facility] Other Start: 07-16-2023 Telephone encounter Brock Modi [facility] Start: 06-24-2023 End: 06-24-2023 ambulatory Brock Ly Other [facility] Other Start: 06-24-2023 Office outpatient vi sit 15 minutes Brock Modi [facility] Start: 04-07-[address] Alok Webber Facility: Start: 04-02-2023 End: 04-02-2023 ambulatory Brock Modi Other [facility] Other Start: 04-02-2023 Telephone encounter Brock Ly [facility] Start: 03-19-2023 End: 03-19-2023 ambulatory Brock Modi Other [facility] Other Start: 03-19-2023 Telephone encounter Brock Modi [facility] Start: 03-16-2023 End: 03-16-2023 ambulatory Brock Ly Other [facility] Other Start: 03-16-2023 Office outpatient vi sit 15 minutes Brock Mdoi [facility] Start: 02-04-2023 End: 02-04-2023 ambulatory Brock Ly Other [facility] Other Start: 02-04-2023 Office outpatient vi sit 15 minutes Brock Modi [facility] Start: 01-29-2023 End: 01-29-2023 ambulatory Viral Yang Other [facility] Other Start: 01-29-2023 Telephone encounter Viral [facility] Start: 01-27-2023 Rx Renewal Brock Modi Work Phone: [facility] 250 DO Work Phone: Start: 01-19-2023 Patient encounter procedure Brock Modi Work Phone: [facility] 250[address] [place] Work Phone: Start: 01-14-2023 End: 01-14-2023 ambulatory Brock Modi Other [facility] Other Start: 01-14-2023 Telephone encounter Brock Modi [facility] Start: 12-24-2022 Office outpatient vi sit 40 minutes Brock Modi Work Phone: [facility] 250 DO Work Phone: Start: 12-24-[address] Alok chauhan Akbar Facility: Start: 12-04-2022 End: 12-04-2022 ambulatory Brock Modi Other [place] [employer] Other Start: 12-04-2022 Telephone encounter Brock Modi [facility] Start: 12-03-2022 End: 12-03-2022 ambulatory Brock Modi Other [facility] Other Start: 12-03-2022 Telephone encounter Brock Ly [facility] Start: 11-27-2022 End: 11-27-2022 ambulatory Wagner Marrufo Other [place] [employer] Other Start: 11-27-2022 Office outpatient vi sit 25 minutes Wagner Marrufo [facility] Start: 11-12-2022 End: 11-12-2022 ambulatory Brock Modi Other [facility] Other Start: 11-12-2022 Office outpatient vi sit 15 minutes Brock Modi [facility] Start: 11-04-2022 ambulatory JANINE Burton ty:H1 Start: 11-03-2022 End: 11-03-2022 Patient encounter procedure MD Brock Modi Work Phone: [facility]-CT Scan [employer] Work Phone: Start: 11-03-2022 End: 11-03-2022 ambulatory MD Brock Modi Work Phone: [facility] Work Phone: Start: 11-02-2022 Patient encounter procedure Brock Modi Work Phone: [facility] 250 DO Work Phone: Start: 11-02-2022 ambulatory Janine Cunha Facility:1 [id number] Start: 10-29-2022 Chart Update Brock Modi Work Phone: [facility] 600 DO Work Phone: Start: 10-28-2022 End: 10-28-2022 ambulatory MD Brock Modi Work Phone: [facility] Work Phone: Start: 10-28-2022 End: 10-28-2022 Patient encounter procedure MD Brock Modi Work Phone: [facility]-Lab [employer] Work Phone: Start: 10-27-2022 End: 10-27-2022 ambulatory Brock Modi Other [facility] Other Start: 10-27-2022 Telephone encounter Brock BURGESS [facility] Start: 10-21-2022 Transitional care juan diego neri srvc 14 day discharge Brock Modi Work Phone: [facility] 250 DO Work Phone: Start: 10-21-2022 End: 10-21-2022 ambulatory Janine Cunha [facility] Other Start: 10-21-2022 Telephone encounter Adi Campos [facility] Start: 10-20-2022 End: 10-20-2022 ambulatory Adi Campos Other [facility] Other Start: 10-20-2022 Office outpatient ne w 45 minutes Adi Campos [facility] Start: 10-15-2022 End: 10-15-2022 ambulatory Brock Modi Other [facility] Other Start: 10-15-2022 Office outpatient vi sit 15 minutes Brock Modi [facility] Start: 10-10-[address] Brock Modi Facility:[id number] Start: 10-10-2022 End: 10-13-2022 Evaluation and management of inpatient MD Brock Modi Work Phone: [facility] [place] [facility] Work Phone: Start: 10-10-2022 End: 10-10-2022 ambulatory COLIN TREADWELL Facility:H1 Start: 09-09-2022 Office outpatient ne w 45 minutes Wagner Marrufo [facility] [place] [facility] Start: 09-09-2022 End: 09-09-2022 ambulatory DO Wagner Marrufo Work Phone: [facility] Work Phone: Start: 09-09-2022 End: 09-09-2022 Patient encounter procedure DO Wagner Marrufo Work Phone: [facility] Start: 09-07-2022 End: 09-08-2022 ambulatory COLIN TREADWELL Facility:H1 Start: 08-13-2022 End: 08-13-2022 ambulatory Brock Modi Other [facility] Other Start: 08-13-2022 Office outpatient vi sit 15 minutes Brock Modi [facility] Start: 08-10-2022 End: 08-11-[address] BROCK MODI Facility:H1 Start: 07-30-2022 End: 07-30-2022 ambulatory Brock Modi Other [facility] Other Start: 07-30-2022 Office outpatient vi sit 25 minutes Brock Modi [facility] Start: 07-28-2022 End: 07-28-2022 ambulatory Brock Modi Other [facility] Other Start: 07-28-2022 Telephone encounter Brock Modi [facility] Start: 07-10-2022 End: 07-11-[address] CAR LIGHT Facility:H1 Start: 07-08-2022 End: 07-08-[address] JANELLE Moser Facility:H1 Start: 07-05-2022 End: 07-05-[address] RUBÉN DALY Facility:H1 Start: 07-03-2022 End: 07-04-[address] ARLIN CUNHA Facility:H1 Start: 02-03-2022 End: 02-03-[address] ARLIN CUNHA Facility:H1 Patient encounter status Brock Modi Work Phone: [facility] 250 DO Work Phone: Procedures Date Procedure Procedure Detail Performing Clinician Start: 09-20-2024 Ecg routine ecg w/le ast 12 lds w/i&r Alok Webber DO Work Phone: Start: 09-11-2024 CT ANGIO ABDOMEN PELVIS Rom Pierre MD Work Phone: Start: 11-03-2022 CT of thorax with contrast [...] Treatment Date Care Activity Detail Author Start: 09-20-2025 End: 09-20-2025 Patient encounter procedure 09/20/2025 11:30 AM EST Office Visit [facility] [address] [place] [id number] Alok Webber DO [address] [place] [address] [facility] Start: 09-14-2025 Adult BMI Screening Adult BMI Screening [facility] Start: 09-14-2025 Tobacco Screening Tobacco Screening [facility] Start: 2025 Pneumococcal Vaccine: Pediatrics (0 to 5 Years) and At-Risk Patients (6 to 64 Years) (3 - PPSV23 or PCV20) Pneumococcal Vaccine: Pediatrics (0 to 5 Years) and At-Risk Patients (6 to 64 Years) (3 - PPSV23 or PCV20) [facility] Start: 03-09-2025 Adult BMI Screening Adult BMI Screening [facility] Start: 03-09-2025 Tobacco Screening Tobacco Screening [facility] Start: 09-20-2024 End: 09-20-2025 Alanine aminotransferase [Enzymatic activity/volume] in Serum or Plasma by With P-5'-P Alanine Aminotransferase Lab Routine Mixed hyperlipidemia Expected: 09/20/2024 (Approximate), Expires: 09/20/2025 [facility] Work Phone: Comment on above: Expected: 09/20/2024 (Approximate), Expi res: 09/20/2025 Start: 09-20-2024 End: 09-20-2025 Aspartate aminotransferase [Enzymatic activity/volume] in Serum or Plasma by With P-5'-P Aspartate Aminotransferase Lab Routine Mixed hyperlipidemia Expected: 09/20/2024 (Approximate), Expires: 09/20/2025 [facility] Work Phone: Comment on above: Expected: 09/20/2024 (Approximate), Expi res: 09/20/2025 Start: 09-20-2024 End: 09-20-2025 C reactive protein [Mass/volume] in Serum or Plasma by High sensitivity method C-Reactive Protein, High Sensitivity Lab Routine Atherosclerosis of sitka coronary artery of sitka heart without angina pectoris Ischemic cardiomyopathy Past myocardial infarction Mixed hyperlipidemia Essential hypertension Expected: 09/20/2024 (Approximate), Expires: 09/20/2025 [facility] Work Phone: Comment on above: Expected: 09/20/2024 (Approximate), Expi res: 09/20/2025 Start: 09-20-2024 End: 09-20-2025 Complete Pulmonary Function Test (Spirometry/DLCO/Lung Volumes) Complete Pulmonary Function Test (Spirometry/DLCO/Lung Volumes) PFT Routine Lung mass Expected: 09/20/2024 (Approximate), Expires: 09/20/2025 [facility] Service Area Work Phone: Comment on above: Expected: 09/20/2024 (Approximate), Expi res: 09/20/2025 Start: 09-20-2024 End: 09-20-2025 Lipid 1996 panel - Serum or Plasma Lipid Panel Lab Routine Mixed hyperlipidemia Expected: 09/20/2024 (Approximate), Expires: 09/20/2025 [facility] Work Phone: Comment on above: Expected: 09/20/2024 (Approximate), Expi res: 09/20/2025 Start: 09-20-2024 End: 09-20-2025 XR Chest 2 Views XR chest 2 views Imaging Routine Lung mass Expected: 09/20/2024 (Approximate), Expires: 09/20/2025 [facility] Work Phone: Comment on above: Expected: 09/20/2024 (Approximate), Expi res: 09/20/2025 Start: 09-20-2024 End: 09-20-2024 Patient encounter procedure 09/20/2024 9:00 AM EST Office Visit [facility] [address] [place] [address] Alok Webber DO [address] [place] [address] [facility] Start: 09-09-2024 End: 09-09-2024 CTA Abdominal vessels and Pelvis vessels W contrast IV CT angiogram abdomen and pelvis Imaging Routine Infrarenal Abdominal Aortic Aneurysm (Aaa) Without Rupture (Cms-Hcc) Expected: 09/09/2024 (Approximate), Expires: 09/09/2024 [facility] Work Phone: Comment on above: Expected: 09/09/2024 (Approximate), Expi res: 09/09/2024 Start: 08-05-2024 Adult BMI Screening Adult BMI Screening [facility] Start: 08-05-2024 Tobacco Screening Tobacco Screening [facility] Start: 03-26-2024 COVID-19 Vaccine () COVID-19 Vaccine () [facility] Start: 03-26-[address] [facility] Start: 03-09-2024 End: 03-09-2025 Echo complete W/O contrast Echo complete W/O contrast Echocardiography Routine Infrarenal abdominal aortic aneurysm (AAA) without rupture (CMS-HCC) Bilateral carotid bruits Cigarette smoker Expected: 03/09/2024, Expires: 03/09/2025 [facility] Comment on above: Expected: 03/09/2024, Expires: Start: 03-09-2024 End: 03-09-2025 US Carotid arteries - bilateral Vas carotid duplex bilateral Vascular Ultrasound Routine Bilateral carotid bruits Expected: 03/09/2024, Expires: 03/09/2025 [facility] Comment on above: Expected: 03/09/2024, Expires: Start: 02-17-2024 End: 02-17-2024 Patient encounter procedure 02/17/2024 10:10 AM EDT [facility] [address] [place] [address] Rom Pierre MD [address], [address] [address] [facility] Start: 09-05-2023 Tobacco Counseling Tobacco Counseling [facility] Start: 08-24-2023 End: 08-24-2024 CTA Abdominal vessels and Pelvis vessels W contrast IV CT angiogram abdomen and pelvis Imaging Routine Abdominal Aortic Aneurysm (Aaa) Without Rupture, Unspecified Part (Cms-Hcc) Obstructive chronic bronchitis with exacerbation ([facility]-HCC) Obesity with body mass index (BMI) of 30.0 to 39.9 Expected: 08/24/2023, Expires: 08/24/2024 [facility] Work Phone: Comment on above: Expected: 08/24/2023, Expires: 5 Start: 08-22-2023 End: 08-22-2024 CTA Abdominal vessels and Pelvis vessels W contrast IV CT angiogram abdomen and pelvis Imaging Routine Abdominal Aortic Aneurysm (Aaa) Without Rupture, Unspecified Part (Cms-Hcc) Obstructive chronic bronchitis with exacerbation ([facility]-HCC) Obesity with body mass index (BMI) of 30.0 to 39.9 Chronic obstructive pulmonary disease, unspecified COPD type (CMS-HCC) Expected: 08/22/2023, Expires: 08/22/2024 [employer] Phone: Comment on above: Expected: 08/22/2023, Expires: Start: 05-02-2023 Pneumococcal vaccination Pneumococcal Vaccine (3 of 3 - PCV20 or PCV21) [facility] Start: 04-07-2023 FUV, Provider: Alok Webber, Status: Pen, Time: 11:20 AM FUV, Provider: Alok Webber, Status: Pen, Time: 11:20 AM [facility] 250 DO Work Phone: Start: 03-26-2023 Influenza vaccination [facility] Start: 01-19-2023 FUV, Provider: Alok Webber, Status: Pen, Time: 2:30 PM FUV, Provider: Alok Webber, Status: Pen, Time: 2:30 PM [facility] 250 DO Work Phone: Start: 11-02-2022 HOLTER 48, Provider: VERONICA LANGLEY VISION TEACHER 1,[id number], Status: Pen, Time: 2:30 PM HOLTER 48, Provider: VERONICA LANGLEY V[employer] TE[employer]ER 1,[id number], Status: Pen, Time: 2:30 PM [facility] 250 DO Work Phone: Start: 10-13-2022 [facility] Start: 10-10-2022 Dilation of Coronary Artery, Two Arteries with Three Drug-eluting Intraluminal Devices, Percutaneous Approach Dilation of Coronary Artery, Two Arteries with Three Drug-eluting Intraluminal Devices, Percutaneous Approach [facility] Start: 10-10-2022 Fluoroscopy of Left Heart using Low Osmolar Contrast Fluoroscopy of Left Heart using Low Osmolar Contrast [facility] Start: 10-10-2022 Fluoroscopy of Multiple Coronary Arteries using Low Osmolar Contrast Fluoroscopy of Multiple Coronary Arteries using Low Osmolar Contrast [facility] Start: 10-10-2022 Measurement of Cardiac Sampling and Pressure, Left Heart, Percutaneous Approach Measurement of Cardiac Sampling and Pressure, Left Heart, Percutaneous Approach [facility] Start: 10-10-2022 Hospital admission [facility] Start: 10-10-2022 [facility] Start: 10-10-2022 Hospital admission [facility] Start: 10-10-2022 [facility] Start: 2020 RSV High Risk: (Elderly (60+) or Population) (1 - Risk 60-74 years 1-dose series) RSV High Risk: (Elderly (60+) or Population) (1 - Risk 60-74 years 1-dose series) [facility] Start: 2010 Administration of varicella zoster vaccine Zoster (Shingles) Vaccine (1 of 2) [facility] Start: 2010 Zoster Vaccines (1 of 2) Zoster Vaccines (1 of 2) [facility] Start: 1982 DTaP/Tdap/Td Vaccines (1 - Tdap) DTaP/Tdap/Td Vaccines (1 - Tdap) [facility] Start: 1979 DTaP,Tdap and Td Vaccines (1 - Tdap) DTaP,Tdap and Td Vaccines (1 - Tdap) [facility] Start: 1978 Adult BMI Follow Up Plan Adult BMI Follow Up Plan [facility] Start: 1978 Diabetes mellitus screening Diabetes Screening [facility] Start: 1978 Hepatitis C screening Hepatitis C Screening [facility] Start: 1972 Depression Screening Depression Screening [facility] Start: 1961 MMR Vaccines (1 of 1 - Standard series) MMR Vaccines (1 of 1 - Standard series) [facility] Start: 1960 COVID-19 Vaccine (#1) COVID-19 Vaccine (#1) [facility] Start: 1960 HIV screening HIV Screening [facility] Start: 1960 Lipid panel Lipid Panel [facility] Start: 1960 Screening for malignant neoplasm of colon [facility] Start: 1960 Tobacco Counseling Tobacco Counseling [facility] Start: 1960 Yearly Adult Physical Yearly Adult Physical [facility] End: 08-22-2024 Creatinine includes GFR, serum Creatinine includes GFR, serum Lab Routine Abdominal Aortic Aneurysm (Aaa) Without Rupture, Unspecified Part (Cms-Hcc) Obstructive chronic bronchitis with exacerbation (CMS-HCC) Obesity with body mass index (BMI) of 30.0 to 39.9 Chronic obstructive pulmonary disease, unspecified COPD type (CMS-HCC) 1 Occurrences starting 08/22/2023 until 08/22/2024 [facility] Comment on above: 1 Occurrences starting 08/22/2023 until 08/22/2024 End: 08-24-2024 Creatinine includes GFR, serum Creatinine includes GFR, serum Lab Routine Abdominal Aortic Aneurysm (Aaa) Without Rupture, Unspecified Part (Cms-Hcc) Obstructive chronic bronchitis with exacerbation (CMS-HCC) Obesity with body mass index (BMI) of 30.0 to 39.9 1 Occurrences starting 08/24/2023 until 08/24/2024 [facility] Work Phone: Comment on above: 1 Occurrences starting 08/24/2023 until 08/24/2024 End: 03-09-2025 Creatinine includes GFR, serum Creatinine includes GFR, serum Lab Routine Infrarenal abdominal aortic aneurysm (AAA) without rupture (CMS-HCC) 1 Occurrences starting 03/09/2024 until 03/09/2025 [facility] Comment on above: 1 Occurrences starting 03/09/2024 until 03/09/2025 Patient Education Coronary Angio plasty (DC) Coronary Stenting (DC) Angina (DC) Chest Pain (DC) Drug Eluting Stents [facility] Work Phone: Patient referral [facility] Work Phone: US Lower extremity v ein - right [facility] Immunizations Immunization Date Immunization Notes Care Provider Fa cility 05-02-2018 pneumococcal Conjuga te, unspecified formulation; Translations: [Need for prophylactic vaccination against Streptococcus pneumoniae (pneumococcus)] Brock Modi Other [facility] Other 05-02-2018 pneumococcal polysaccharide vaccine, 23 valent Brock Modi Work Phone: [facility] 05-26-2017 pneumococcal conjuga te vaccine, 13 valent Brock Modi Work Phone: [facility] Payers Date Payer Category Payer Medicaid [id number] 2022 Medicaid [id number] 2022 Self-pay 2021 Private Health Insurance [employer] [id number] 2019 Unknown 1960 Unknown [id number] 2.16840.1.268181.3.579.2. 593 1960 Unknown [id number] 2.16.840.1.922730.3.579.2. 593 1960 Unknown [id number] 2.16.840.1.243750.3.579.2. 593 1960 Unknown [id number] 2.16.840.1.136422.3.579.2. 593 1960 Unknown [id number] 2.16.840.1.442022.3.579.2. 593 1960 Unknown [id number] 2.16.840.1.319522.3.579.2. 593 1960 Unknown [id number] 2.16.840.1.767329.3.579.2. 593 1960 Unknown [id number] 2.16.840.1.088887.3.579.2. 593 1960 Unknown [id number] 2.16.840.1.426886.3.579.2. 593 1960 Unknown [id number] 2.16.840.1.948281.3.579.2. 356 1960 Unknown [id number] 2.16.840.1.379633.3.579.2. 356 1960 Unknown [id number] 2.16.840.1.051920.3.579.2. 356 1960 Unknown [id number] 2.16.840.1.862779.3.579.2. 356 1960 Unknown [id number] 2.16.840.1.519735.3.579.2. 356 1960 Unknown [id number] 2.16.840.1.003014.3.579.2. 1286 1960 Unknown [id number] 2.16.840.1.033477.3.579.2. 1286 1960 Unknown [id number] 2.16.840.1.286558.3.579.2. 1286 1960 Unknown [id number] 2.16.840.1.950630.3.579.2. 1286 1960 Unknown [id number] 2.16.840.1.020575.3.579.2. 1286 1960 Unknown [id number] 2..840.1.891809.3.579.2. 1286 1960 Unknown [id number] 2.16.840.1.355259.3.579.2. 1244 1959 Unknown [id number] 2..840.1.963047.19 Unknown [id number] 2.840.1.767449.3.579.2. 531 Social History Date Type Detail Facility Tobacco smoking stat [facility] Unknown if ever smoked [facility] Work Phone: Start: 1960 Sex Assigned At Male F [facility] Start: 08-06-2023 End: 09-20-2024 Sex Assigned At [facility] Other Start: 10-10-2022 End: 10-10-2022 Tobacco smoking status MIIS Smoker (finding) [facility] Start: 08-06-2023 End: 09-20-2024 Daily caffeine consumption Daily caffeine consumption -[facility] 250 DO Work Phone: Comment on above: 1/2 gallon coffee da darrion; 5-6 cig daily; 8 cigs daily; Start: 09-14-2023 End: 09-20-2024 Tobacco smoking status [facility] Smokes tobacco daily [facility] Start: 08-08-1991 History of tobacco use Cigarette Smo ker [facility] Start: 09-14-2023 End: 09-20-2024 Alcohol intake Lifetime non-drinker (finding) [facility] Start: 1960 Sex Assigned At Not on file P [facility] Start: 09-04-2023 End: 09-20-2024 Exposure to SARS-CoV-2 (event) Not sure [facility] Start: 08-26-2022 End: 09-20-2024 Tobacco use and exposure Smokeless tobacco non-user [facility] Within the past 12 months we worried whether our food would run out before we got money to buy more. Never True [facility] [facility] Start: 08-26-2022 Tobacco Comment pack and a nathanael f a day pt reports he is really trying to quit 09/04/21 [facility] Start: 08-01-2021 Sex Male (finding) [facility] Medical Equipment Procedure Code Equipment Code Equipment Origin al Text Equipment Identifier Dates Drug-eluting coronary artery stent, [id number]-[id number] lymer-coated ()[id number] FDA Start: 10-10-2022 Drug-eluting coronary artery stent, [id number] lymer-coated ()[id number] FDA Start: 10-10-2022 Drug-eluting coronary artery stent, [id number] lymer-coated ()[id number] FDA Start: 10-10-2022 Goals Date Patient Goal Desired Activity /State Functional Status Date Assessment Result Facility 10-13-2022 Functional status Patient at Baseline [facility] Work Phone: Mental Status Date Assessment Result Facility 10-13-2022 Cognitive function Cognitive Sta tus Patient at Baseline [facility] Work Phone: Clinical Notes 07-30-2022 to 09-20-2024 Alok Webber DO - 09/20/2024 9:00 AM ESTPatient InstructionsAttachmentsAssessment & Plan Note - Rom Pierre MD - 09/14/2024 5:52 PM KADYMoantoinette Pierre MD - 09/14/2024 10:40 AM EST Note Date & Type Note Facility 09-20-2024 History of Present illness Narrative Subjective Hector Gaspar is a 64 y.o. male 64-year-old gentleman returns for preoperative risk assessment and clearance prior to AAA endograft repair with Dr. Rom Pierre. He has infrarenal abdominal aortic aneurysm stable but measuring 5.2 cm. For some reason he is off his metoprolol (impulse therapy), presumably discontinued by his primary care physician for hypotension . His heart rate today by ECG is sinus tachycardia at 115 with incomplete right bundle branch block no evidence of ischemia He has ongoing tobacco abuse, COPD, previous history of two-vessel revascularization see details below; and history of right lower lobe mass that never underwent workup as prescribed. Patient has known history of ASHD; patient sustained high risk non-ST elevation SD in October 10, 2022 with primary revascularization of the mid RCA with 2 drug-eluting stents in the distal circumflex with 1 drug-eluting stent. These were large stents his left ventricular function was intact with ejection fraction is 60 to 65%. He is currently hemodynamically stable, off metoprolol (we will reinitiate it) has not had any further pulmonary assessment I believe which is most important given his upcoming anesthetic procedure. Apparently an echocardiogram was performed last week at [place] or [place], read by outside physician, with normal left ventricular function, ejection fraction of 70%, no evidence of pulmonary hypertension with an RVSP in the 20 mmHg range. Patient is able to walk up several flights of stairs without any difficulty he is able to do routine grocery shopping and walk to and from the parking lot without any problems, his overall level of activity is greater than equal to 4 METS on a daily basis, he does not describe any claudication but he does describe joint discomfort from arthritis. Unfortunately he still smoking we have counseled him for 5 minutes today on smoking cessation. His overall major limitation for preoperative risk is primarily related to his pulmonary function and smoking history which has not been investigated we will, we will take the liberty of performing chest x-ray and PFTs; will reinitiate metoprolol 25 twice daily, once we have test results and hand and improved rate control on his sinus tachycardia, I believe he can proceed with endograft treatment for his abdominal aortic aneurysm with overall moderate risk for cardio pulmonary perioperative events at 0.6 to less than or equal to 5%. Review of Systems Respiratory: Positive for shortness of breath. Neurological: Positive for dizziness. All other systems reviewed and are negative. Vitals: 09/20/24 0917 BP: 124/78 BP Location: Right arm Patient Position: Sitting Pulse: (!) 115 Weight: 110 kg (243 lb) Height: 1.676 m (5' 6 ) Objective Physical Exam Constitutional: Appearance: Normal appearance. HENT: Nose: Nose normal. Neck: Vascular: No carotid bruit. Cardiovascular: Rate and Rhythm: Tachycardia present. Pulses: Normal pulses. Heart sounds: Murmur heard. Systolic murmur is present with a grade of 2/6. Pulmonary: Effort: Pulmonary effort is normal. Abdominal: General: Bowel sounds are normal. Palpations: Abdomen is soft. Musculoskeletal: General: Normal range of motion. Cervical [...] AT BEDTIME, Disp: 90 tablet, Rfl: 3 clopidogrel (Plavix) 75 mg tablet, TAKE 1 TABLET BY MOUTH ONCE DAILY., Disp: 90 tablet, Rfl: 3 nitroglycerin (Nitrostat) 0.4 mg SL tablet, Place 1 tablet (0.4 mg) under the tongue every 5 minutes if needed for chest pain., Disp: , Rfl: valsartan (Diovan) 40 mg tablet, Take 1 tablet (40 mg) by mouth once daily., Disp: , Rfl: metoprolol tartrate (Lopressor) 25 mg tablet, Take 1 tablet (25 mg) by mouth 2 times a day., Disp: 180 tablet, Rfl: 3 Assessment/Plan 1. Preop cardiovascular exam 2. Atherosclerosis of [place] coronary artery of [place] heart without angina pectoris Follow Up In Cardiology 3. Ischemic cardiomyopathy 4. Past myocardial infarction 5. Mixed hyperlipidemia 6. Essential hypertension 7. Murmur, heart 8. Moderate chronic obstructive pulmonary disease (Multi) 9. Lung mass 10. Current smoker 11. Obesity (BMI 35.0-39.9 without comorbidity) Scribe Attestation By signing my name below, [...] discussion and plan. documented in this encounter [facility] Work Phone: 09-20-2024 Instructions Kate Cruz LPN - 09/20/2024 9:00 AM EST Please bring all medicines, vitamins, and herbal supplements with you when you come to the office. Prescriptions will not be filled unless you are compliant with your follow up appointments or have a follow up appointment scheduled as per instruction of your physician. Refills should be requested at the time of your visit. Pt did not bring in meds and he do not know what he takes. BMI was above normal measurement. Current weight: 110 kg (243 lb) Weight change since last visit (-) denotes wt loss 8 lbs Weight loss needed to achieve BMI 25: 88.4 Lbs Weight loss needed to achieve BMI 30: 57.5 Lbs Provided instructions on dietary changes. Patient not cleared until we review results of his CXR, PFT and echo The following attachments cannot be sent through Care Everywhere.Heart Healthy Diet (Mauritanian)documented in this encounter [facility] Work Phone: 09-14-2024 Evaluation + Plan note Associated Problem(s): Bilateral carotid bruits Carotid stenosis mild bilaterally S medical therapy. He is on aspirin statin and Plavix. We will continue those. [facility] 09-14-2024 Miscellaneous Notes Associated Problem(s): Bilateral carotid bruits Carotid stenosis mild bilaterally S medical therapy. He is on aspirin statin and Plavix. We will continue those. Associated Problem(s): Cigarette smoker motivated to quit Counseled him for at least 3 minutes he is willing to quit Associated Problem(s): AAA (abdominal aortic aneurysm) without rupture (CMS-HCC) I discussed with him the finding in the CT scan. Discussed different options and he would like to proceed with repair. documented in this encounter [facility] 09-14-2024 Evaluation + Plan note Associated Problem(s): Cigarette smoker motivated to quit Counseled him for at least 3 minutes he is willing to quit [facility] 09-14-2024 Evaluation + Plan note Associated Problem(s): AAA (abdominal aortic aneurysm) without rupture (CMS-HCC) I discussed with him the finding in the CT scan. Discussed different options and he would like to proceed with repair. [facility] History of Present illness Narrative Images from the original note were not included. To: SEYMOUR HARPER MD HPI: Hector Gaspar Sr. is a 64 y.o. male with 5.3 cm infrarenal abdominal aortic aneurysms. Does not have abdominal pain or back pain. He continued to smoke. We had a long discussion about the diagnosis finding in the CT scan and different treatment options.. Review of Systems: Review of Systems Constitutional: Negative. HENT: Negative. Respiratory: Negative. Cardiovascular: Negative. Gastrointestinal: Negative. Endocrine: Negative. Genitourinary: Negative. Musculoskeletal: Negative. Skin: Negative. Neurological: Negative. Hematological: Negative. Medications: Current Outpatient Medications on File Prior to Visit Medication Sig Dispense Refill ALPRAZolam (XANAX) 1 mg tablet Take 1 [...] total) by mouth every 12 (twelve) hours. losartan (COZAAR) 50 mg tablet Take 1 tablet (50 mg total) by mouth in the morning. metoprolol tartrate (LOPRESSOR) 25 mg tablet Take 1 tablet (25 mg total) by mouth in the morning and 1 tablet (25 mg total) before bedtime. nitroglycerin (NITROSTAT) 0.[address] 1 tablet (0.4 mg total) under the tongue every 5 (five) minutes as needed. acetaminophen 325 mg capsule Take by mouth. (Patient not taking: Reported on 09/14/2024) albuterol (PROVENTIL HFA;VENTOLIN HFA) 90 mcg/actuation inhaler (Patient not taking: Reported on 09/14/2024) azithromycin (ZITHROMAX) 250 mg tablet Take 250 mg by mouth. (Patient not taking: Reported on 09/14/2024) ciprofloxacin HCl (CIPRO) 500 mg tablet Take 1 tablet (500 mg total) by mouth in the morning and 1 tablet (500 mg total) before bedtime. (Patient not taking: Reported on 09/14/2024) meloxicam (MOBIC) 15 mg tablet (Patient not taking: Reported on 09/14/2024) ondansetron (ZOFRAN) 4 mg tablet (Patient not taking: Reported on 09/14/2024) ondansetron ODT (ZOFRAN-ODT) 4 mg disintegrating tablet (Patient not taking: Reported on 09/14/2024) No current facility-administered medications on file prior to visit. Past Medical History: Past Medical History: Diagnosis Date AAA (abdominal aortic aneurysm) ([facility]) Allergic Past Surgical History: No past surgical history on file. Social and Family History: Social History Socioeconomic History Marital status: Single Spouse name: Not on file Number of children: Not on file Years of education: Not on file Highest education level: Not on file Occupational History Not on file Tobacco Use Smoking status: Every Day Current packs/day: 1.50 Average packs/day: 1.5 packs/day for 33.1 years (49.7 ttl pk-yrs) Types: Cigarettes Start date: 08/08/1991 Smokeless tobacco: Never Tobacco comments: pack and a half a day pt reports he is really trying to quit 09/04/21 Vaping Use Vaping status: Never Used Substance and Sexual Activity Alcohol use: Never Drug use: Never Sexual activity: Defer Other Topics Concern Not on file Social History Narrative Not on file Social Drivers of Health Financial Resource Strain: Not on file Food Insecurity: No Food Insecurity (09/14/2024) Hunger Screening Food Insecurity - Worry: Never True Food Insecurity - Inability: Never True Transportation Needs: Not on file Physical Activity: Not on file Stress: Not on file Social Connections: Not on file Interpersonal Safety: Not on file Housing Instability: Not on file No family history on file. Recent Labs: Recent and relative labs were reviewed and interpreted and contributed to the assessment and plan below. Vitals: BP 126/72 (BP Site: Right Arm, BP Postition: Sitting, BP CUFF SIZE: M (9-13 inches)) Pulse 96 Temp 36.3 C (97.4 F) (Temporal) Resp 16 Ht 170.2 cm (5' 7 ) Wt 111.6 kg (246 lb) SpO2 96% BMI 38.53 kg/m Body mass index is 38.53 kg/m . Physical Exam: Physical Exam Constitutional: Appearance: Normal appearance. HENT: Head: Normocephalic and atraumatic. Mouth/Throat: Mouth: Mucous membranes are moist. Eyes: Extraocular Movements: Extraocular movements intact. Pupils: Pupils are equal, round, and reactive to light. Cardiovascular: Rate and Rhythm: Normal rate and regular rhythm. Pulmonary: Effort: Pulmonary effort is normal. Breath sounds: Normal breath sounds. Abdominal: General: Abdomen is flat. Bowel sounds are normal. Palpations: Abdomen is soft. Musculoskeletal: General: Normal range of motion. Cervical back: Normal range of motion. Skin: General: Skin is warm and dry. Neurological: General: No focal deficit present. Mental Status: He is alert and oriented to person, place, and time. Mental status is at baseline. Psychiatric: Mood and Affect: Mood normal. Behavior: Behavior normal. Thought Content: Thought content normal. Judgment: Judgment normal. Recent testing: CTA of the abdomen and pelvis Assessment and Plan: Problem List AAA (abdominal aortic aneurysm) without rupture ([facility]-H[facility]) - Primary Current Assessment & Plan I discussed with him the finding in the CT scan. Discussed different options and he would like to proceed with repair. Bilateral carotid bruits Current Assessment & Plan Carotid stenosis mild bilaterally S medical therapy. He is on aspirin statin and Plavix. We will continue those. Cigarette smoker motivated to quit Current Assessment & Plan Counseled him for at least 3 minutes he is willing to quit Hector was seen today for aaa, ct abd/pelvis at [facility]. Diagnoses and all orders for this visit: Infrarenal abdominal aortic aneurysm (AAA) without rupture ([facility]-H[facility]) Cigarette smoker motivated to quit Bilateral carotid bruits Rom Pierre MD, GHANSHYAM, RPVI, FSVS, FACS [facility] This note was created with the assistance of a speech recognition program. While intending to generate a timely document that accurately reflects the content of the visit, no guarantee can be provided that every grammatical or spelling mistake has been or will be identified or corrected. Thank you for your understanding. documented in this encounter [facility] 09-14-2024 Instructions Rom Pierre MD - 09/14/2024 10:40 AM EST Are You Ready To Kick The Habit? Free Tobacco Cessation Resources [facility] Services [facility] Centers provide all employees with free tobacco cessation services that include: Counseling to understand nicotine addiction Education about medications that can help you successfully quit Assistance with developing a plan to quit Call to set up an individual appointment or find out when group classes will be held: [facility]: [phone] [facility]: [phone] [facility]: [phone] [facility]: [phone] Quit Smoking Action Plan and Resources [facility] offers an eight-week, online smoking cessation plan to all [facility] employees, regardless of whether [place] is your medical insurance provider. Go to [email or web address] and click the Health Risk Assessment and Resources link to get started. In the Archiver's menu, click Action Plans instead of Health Risk Assessment to access the Quit Smoking Action Plan. Additional smoking cessation resources are also available to all [facility] employees on the Tidwq5Bpjvmt web page at www.MECLUB/quit smoking. [place] Tobacco Cessation Program If [place] is your medical insurance provider, there are more free resources available to you, including: No copays or deductibles on local tobacco cessation counseling services to help you quit Prescription assistance for tobacco cessation medications to help you quit For details about the tobacco cessation program available to [place] members, go to www.[employer] (Search: Tobacco Cessation Program). [place] Tobacco Quit Line 3-549-UKHJ-NOW ( ) is a toll-free, telephonic service that helps [place] residents quit smoking and using tobacco. It is staffed by experts who tailor a quit plan for you and provide you with advice. [place] Tobacco Quit Line 3-028-AARR-NOW ( ) is a toll-free, telephonic service that helps [place] residents quit smoking and using tobacco. It is staffed by experts who tailor a quit plan for you and provide you with advice. Two weeks of nicotine replacement therapy may be provided at no charge, if needed. Additional Resources These national organizations also offer free information and resources to help you quit tobacco: [place] [employer]--www.cancer.org/healthy/ stayawayfromtobacco [place] [employer]--www.heart.org (Search: Quit Smoking) Centers for Disease Control and Prevention--www.cdc.gov/tobacco [place] [employer]--www.lungusa.org documented in this encounter [facility] 03-09-2024 Evaluation + Plan note Associated Problem(s): Cigarette smoker Counseled on smoking cessation at length. [facility] 03-09-2024 Evaluation + Plan note Associated Problem(s): Bilateral carotid bruits Best medical therapy and smoking cessation.Carotid duplex ultrasound [facility] 03-09-2024 Miscellaneous Notes Associated Problem(s): Cigarette smoker Counseled on smoking cessation at length. Associated Problem(s): Bilateral carotid bruits Best medical therapy and smoking cessation.Carotid duplex ultrasound Associated Problem(s): AAA (abdominal aortic aneurysm) without rupture (CMS-HCC) 5.2 cm infrarenal abdominal aortic aneurysm. We discussed different options. He would like to repeat his scan in 6 months. Continue to smoke. I counseled him on smoking cessation in length. documented in this encounter [facility] 03-09-2024 Evaluation + Plan note Associated Problem(s): AAA (abdominal aortic aneurysm) without rupture (CMS-HCC) 5.2 cm infrarenal abdominal aortic aneurysm. We discussed different options. He would like to repeat his scan in 6 months. Continue to smoke. I counseled him on smoking cessation in length. [facility] 03-09-2024 History of Present illness Narrative Images from the original note were not included. To: BROCK MODI MD HPI: Hector Gaspar Sr. is a 63 y.o. male with Known infrarenal abdominal arctic aneurysm here with a CAT scan that shows 5.2 cm infrarenal abdominal arctic aneurysm. He is a heavy smoker. He also has carotid bruit. He has coronary artery disease. I discussed with him different treatment options for the infrarenal aneurysm. He would like to continue with surveillance with CTA 6 months. I emphasized the importance of compliance with his imaging. I also discussed with him getting an echo and a carotid duplex ultrasound for his carotid bruit.. Review of Systems: Review of Systems Constitutional: Negative. HENT: Negative. Respiratory: Negative. Cardiovascular: Negative. Gastrointestinal: Negative. Endocrine: Negative. Genitourinary: Negative. Musculoskeletal: Negative. Skin: Negative. Neurological: Negative. Hematological: Negative. Medications: Current Outpatient Medications on File Prior to Visit Medication Sig Dispense Refill ALPRAZolam (XANAX) 1 mg tablet Take 1 tablet (1 mg total) by mouth 2 (two) times a day as needed for anxiety. aspirin 81 mg chewable tablet Chew 1 tablet (81 mg total) and swallow in the morning. atorvastatin (LIPITOR) 80 mg tablet Take 1 tablet (80 mg total) by mouth in the morning. losartan (COZAAR) 50 mg tablet Take 1 tablet (50 mg total) by mouth in the morning. metoprolol tartrate (LOPRESSOR) 25 mg tablet Take 1 tablet (25 mg total) by mouth in the morning and 1 tablet (25 mg total) before bedtime. acetaminophen 325 mg capsule Take by mouth. albuterol (PROVENTIL HFA;VENTOLIN HFA) 90 mcg/actuation inhaler (Patient not taking: Reported on 03/09/2024) azithromycin (ZITHROMAX) 250 mg tablet Take 250 mg by mouth. (Patient not taking: Reported on 09/04/2021) BRILINTA 90 mg tablet Take 1 tablet (90 mg total) by mouth every 12 (twelve) hours. (Patient not taking: Reported on 03/09/2024) ciprofloxacin HCl (CIPRO) 500 mg tablet Take 1 tablet (500 mg total) by mouth in the morning and 1 tablet (500 mg total) before bedtime. (Patient not taking: Reported on 03/09/2024) meloxicam (MOBIC) 15 mg tablet (Patient not taking: Reported on 09/04/2021) nitroglycerin (NITROSTAT) 0.[address] 1 tablet (0.4 mg total) under the tongue every 5 (five) minutes as needed. ondansetron (ZOFRAN) 4 mg tablet (Patient not taking: Reported on 09/04/2021) ondansetron ODT (ZOFRAN-ODT) 4 mg disintegrating tablet (Patient not taking: Reported on 03/09/2024) No current facility-administered medications on file prior to visit. Past Medical History: Past Medical History: Diagnosis Date AAA (abdominal aortic aneurysm) ([facility]) Allergic Past Surgical History: No past surgical history on file. Social and Family History: Social History Socioeconomic History Marital status: Single Spouse name: Not on file Number of children: Not on file Years of education: Not on file Highest education level: Not on file Occupational History Not on file Tobacco Use Smoking status: Every Day Current packs/day: 1.50 Average packs/day: 1.5 packs/day for 32.6 years (48.9 ttl pk-yrs) Types: Cigarettes Start date: 08/08/1991 Smokeless tobacco: Never Tobacco comments: pack and a half a day pt reports he is really trying to quit 09/04/21 Vaping Use Vaping status: Never Used Substance and Sexual Activity Alcohol use: Never Drug use: Never Sexual activity: Defer Other Topics Concern Not on file Social History Narrative Not on file Social Determinants of Health Financial Resource Strain: Not on file Food Insecurity: No Food Insecurity (03/09/2024) Hunger Screening Food Insecurity - Worry: Never True Food Insecurity - Inability: Never True Transportation Needs: Not on file Physical Activity: Not on file Stress: Not on file Social Connections: Not on file Interpersonal Safety: Not on file Housing Instability: Not on file History reviewed. No pertinent family history. Recent Labs: Recent and relative labs were reviewed and interpreted and contributed to the assessment and plan below. Vitals: BP 148/86 (BP Site: Right Arm, BP Postition: Sitting, BP CUFF SIZE: M (9-13 inches)) Pulse 93 Ht 170.2 cm (5' 7 ) Wt 109.9 kg (242 lb 3.2 oz) SpO2 95% BMI 37.93 kg/m Body mass index is 37.93 kg/m . Physical Exam: Physical Exam Constitutional: Appearance: Normal appearance. HENT: Head: Normocephalic and atraumatic. Mouth/Throat: Mouth: Mucous membranes are moist. Eyes: Extraocular Movements: Extraocular movements intact. Pupils: Pupils are equal, round, and reactive to light. Cardiovascular: Rate and Rhythm: Normal rate and regular rhythm. Pulmonary: Effort: Pulmonary effort is normal. Breath sounds: Normal breath sounds. Abdominal: General: Abdomen is flat. Bowel sounds are normal. Palpations: Abdomen is soft. Musculoskeletal: General: Normal range of motion. Cervical back: Normal range of motion. Skin: General: Skin is warm and dry. Neurological: General: No focal deficit present. Mental Status: He is alert and oriented to person, place, and time. Mental status is at baseline. Psychiatric: Mood and Affect: Mood normal. Behavior: Behavior normal. Thought Content: Thought content normal. Judgment: Judgment normal. Recent testing: CTA abd and plevis Assessment and Plan: Problem List AAA (abdominal aortic aneurysm) without rupture ([facility]) - Primary Current Assessment & Plan 5.2 cm infrarenal abdominal aortic aneurysm. We discussed different options. He would like to repeat his scan in 6 months. Continue to smoke. I counseled him on smoking cessation in length. Relevant Orders CT angiogram abdomen and pelvis Creatinine includes GFR, serum Echo complete W/O contrast Bilateral carotid bruits Current Assessment & Plan Best medical therapy and smoking cessation.Carotid duplex ultrasound Relevant Orders Vas carotid duplex bilateral Echo complete W/O contrast Cigarette smoker Current Assessment & Plan Counseled on smoking cessation at length. 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 Diagnoses and all orders for this visit: Infrarenal abdominal aortic aneurysm (AAA) without rupture ([facility]) - CT angiogram abdomen and pelvis; Future - Creatinine includes GFR, serum; Future - Echo complete W/O contrast; Future Bilateral carotid bruits - Vas carotid duplex bilateral; Future - Echo complete W/O contrast; Future Cigarette smoker - Echo complete W/O contrast; Future Other orders - perflutren lipid microspheres (DEFINITY) dilution injection 1.43 mg/10 mL - sodium chloride 0.9 % flush 10 mL Rom Pierre MD, GHANSHYAM, RPVI, FSVS, FACS [facility] This note was created with the assistance of a speech recognition program. While intending to generate a timely document that accurately reflects the content of the visit, no guarantee can be provided that every grammatical or spelling mistake has been or will be identified or corrected. Thank you for your understanding. documented in this encounter [facility] 03-09-2024 Instructions Rom Pierre MD - 03/09/2024 10:20 AM EDT Are You Ready To Kick The Habit? Free Tobacco Cessation Resources [facility] Services [facility] Centers provide all employees with free tobacco cessation services that include: Counseling to understand nicotine addiction Education about medications that can help you successfully quit Assistance with developing a plan to quit Call to set up an individual appointment or find out when group classes will be held: [facility]: [phone] [facility]: [phone] [facility]: [phone] [facility]: [phone] Quit Smoking Action Plan and Resources [facility] offers an eight-week, online smoking cessation plan to all [facility] employees, regardless of whether [place] is your medical insurance provider. Go to [email or web address]/employeewell ness and click the Health Risk Assessment and Resources link to get started. In the Adkqh1Xomkie menu, click Action Plans instead of Health Risk Assessment to access the Quit Smoking Action Plan. Additional smoking cessation resources are also available to all [facility] employees on the Qzoeq8Ixphch web page at www.[employer]/quit smoking. [place] Tobacco Cessation Program If [place] is your medical insurance provider, there are more free resources available to you, including: No copays or deductibles on local tobacco cessation counseling services to help you quit Prescription assistance for tobacco cessation medications to help you quit For details about the tobacco cessation program available to [place] members, go to www.[employer] (Search: Tobacco Cessation Program). [place] Tobacco Quit Line 1-559-BHBL-NOW ( ) is a toll-free, telephonic service that helps [place] residents quit smoking and using tobacco. It is staffed by experts who tailor a quit plan for you and provide you with advice. [place] Tobacco Quit Line 0-096-KKVK-NOW ( ) is a toll-free, telephonic service that helps [place] residents quit smoking and using tobacco. It is staffed by experts who tailor a quit plan for you and provide you with advice. Two weeks of nicotine replacement therapy may be provided at no charge, if needed. Additional Resources These national organizations also offer free information and resources to help you quit tobacco: [place] [employer]--www.cancer.org/healthy/ stayawayfromtobacco [place] [employer]--www.heart.org (Search: Quit Smoking) Centers for Disease Control and Prevention--www.cdc.gov/tobacco [place] [employer]--www.lungusa.org documented in this encounter [facility] 09-14-2023 History of Present illness Narrative Subjective [...] ASHD; patient sustained high risk non-ST elevation SD in October 10, 2022 with primary revascularization [...] remains compliant on current DAPT and post SD therapies Recommendations: Discontinue ticagrelor, switch to clopidogrel [...] Disp: , Rfl: Assessment/Plan 1. Atherosclerosis of sitka coronary artery of sitka heart without angina pectoris 2. Essential hypertension, benign 3. Mixed hyperlipidemia 4. Ischemic cardiomyopathy 5. Past myocardial infarction 6. Moderate chronic obstructive pulmonary disease (CMS/HCC) 7. Obesity (BMI 35.0-39.9 without comorbidity) 8. Current smoker Scribe Attestation By signing my name below, I, Kate Eric Leal LPN attest that this documentation has been [...] discussion and plan. documented in this encounter [facility] Work Phone: 09-14-2023 Instructions Kate Cruz LPN [...] instructions on exercise. documented in this encounter [facility] Work Phone: 08-06-2023 Evaluation note Encounter Date [...] 6 months with imaging at that time. [facility] Other 01-11-2024 History of Present illness Narrative* [...] aortic aneurysm (AAA) without rupture, unspecified part ([facility]) - [facility] - [place], [place] - CT angiogram abdomen and pelvis; Future - Creatinine includes GFR, serum; Future Obstructive chronic bronchitis with exacerbation ([facility]) - CT angiogram abdomen and pelvis; Future - Creatinine includes GFR, serum; Future Obesity with body mass index (BMI) of 30.0 to 39.9 - CT angiogram abdomen and pelvis; Future - Creatinine includes GFR, serum; Future Chronic obstructive pulmonary disease, unspecified COPD type ([facility]) - CT angiogram abdomen and pelvis; Future - Creatinine includes GFR, serum; Future Patient with infrarenal abdominal aortic aneurysm. His most recent duplex ultrasound shows 5.2 cm and that was in June of 2023. At this point I will see him back in 6 months with a follow-up CT angiogram. [facility]* Encounter Date Diagnosis Assessment Notes Treatment Notes Treatment Clinical Notes Jun, Abdominal aortic aneurysm (AAA) without rupture, unspecified part (ICD-10 - I71.40) [facility] Other 11-30-2023 Evaluation note* Encounter Date Diagnosis Assessment Notes Treatment Notes Treatment Clinical Notes May, Abdominal aortic aneurysm (AAA) without rupture, unspecified part (ICD-10 - I71.40) Pt requests order as he is overdue for recheckUS. May, Bronchitis (ICD-10 - J40) Finish meds and treatment plan ordered by ER recently. Pt understands as he is improving. [facility] Other 08-25-2023 Evaluation note* Encounter Date Diagnosis Assessment Notes Treatment Notes Treatment Clinical Notes Feb, Acute cystitis without hematuria (ICD-10 - N30.00) [facility] Other 08-22-2023 Evaluation note* Encounter Date Diagnosis Assessment Notes Treatment Notes Treatment Clinical Notes Feb, Penile discharge (ICD-10 - R36.9) Pt request STI testing Feb, Dysuria (ICD-10 - R30.0) Rule out UTI based on symptoms. Will call w mohsen. Push fluids. Feb, Chronic obstructive pulmonary disease, unspecified (ICD-10 - J44.9) Clinical diagnosis secondary to [id number] history of tobacco abuse. He will need PFTs in the future. Discussed missed appts w Dr. Campos and sleep lab. He states he will not followup there as he doesn't want to do a lung biopsy. His resp symptoms are improved overall. He expresses understanding on the severity of his condition and he chooses not to followup. [facility] Other 07-13-2023 Evaluation note* Encounter Date Diagnosis Assessment Notes Treatment Notes Treatment Clinical Notes Jan, COPD, moderate (ICD-10 - J44.9) Reminded him to keep appt w Dr. Campos on 02/10. Continue home medications. Avoid going outside with there is haze. Jan, Other sleep disorders (ICD-10 - G47.8) Gave number for the [facility] Sleep lab. He missed his last appt as his daughter had COVID. He will call to reschedule. [facility] Other 07-07-2023 Evaluation note* Encounter Date Diagnosis Assessment Notes Treatment Notes Treatment Clinical Notes Jan, Situational anxiety (ICD-10 - F41.8) [facility] Other 05-11-2023 Evaluation note* Encounter Date Diagnosis Assessment Notes Treatment Notes Treatment Clinical Notes November, Situational anxiety (ICD-10 - F41.8) [facility] Other 05-05-2023 Evaluation note* Encounter Date Diagnosis [...] any surgical interventions. Tobacco cessation program at [facility] has been recommended and offered as well as the national Quitline 8-568-QBIY-NOW. We have discussed pharmacologic treatment including nicotine replacement therapy which can lead to a positive nicotine test as well as nicotine free medications both of which will need to be managed by their PCP. We have provided handout for the [facility] Tobacco Cessation Program. This discussion was limited to 5 minutes. [facility] Other 04-20-2023 Evaluation note* Encounter Date Diagnosis Assessment Notes Treatment Notes Treatment Clinical Notes Oct, Chronic obstructive pulmonary disease, unspecified COPD type (ICD-10 - J44.9) Will resume inhalers as prescribed. Keep appt w Dr. Campos. Notes frequent dyspnea, agrees to a prednisone course. Oct, INOCENTE (obstructive sleep apnea) (ICD-10 - G47.33) I called [facility]. He has to meet with the sleep specialist before the test is done, even though it was already ordered. I gave him the date of the appt. I also ordered the test. Oct, Coronary artery disease involving sitka heart without angina pectoris, unspecified vessel or lesion type (ICD-10 - I25.10) Continued followup w NO. Continue time off work until breathing status is improved. [facility] Other 03-28-2023 Evaluation note* Encounter Date Diagnosis Assessment Notes Treatment Notes Treatment Clinical Notes Sep, Chronic obstructive pulmonary disease, unspecified COPD type (ICD-10 - J44.9) Trelegy samples and training please Sep, Atelectasis of right lung (ICD-10 - J98.11) Please obtain any previous chest CT done at [place] in the past, and have them load onto our PACS Sep, Tobacco use disorder (ICD-10 - F17.200) Sep, Coronary artery disease involving sitka heart without angina pectoris, unspecified vessel or lesion type (ICD-10 - I25.10) [facility] Other 03-23-2023 Evaluation note* Encounter Date Diagnosis Assessment Notes Treatment Notes Treatment Clinical Notes Sep, Coronary artery disease involving sitka coronary artery of sitka heart without angina pectoris (ICD-10 - I25.10) [...] needs a titration study at the least. [facility] Other 03-21-2023 Hospital Discharge instructions Additional Instructions [...] doctor or pharmacist, without first calling the sql database administrator who implanted the stent. If you require [...] weight lifting, stair steppers, etc. until the sql database administrator approves these activities. Check with the sql database administrator on your first follow-up visit. CALL YOUR PHYSICIAN at [phone]: -If bleeding should occur from the catheter insertion site- apply pressure to the site then immediately call us. -Report any fever, redness, drainage, increased swelling, or firmness at the catheter insertion site. Some bruising or slight swelling may be present at the time of discharge. -Should arm or leg become cold, numb, white, or blue, contact the sql database administrator immediately. -IF you should experience episodes of [...] is recommended. Please call Central Scheduling at [phone] to schedule your appointment.] The attending sql database administrator or [facility] nurse clinician should provide you with specific instructions regarding activity, diet, medications, and further follow up for you. Follow the medication instructions provided on your discharge. If the dosages and instructions on this sheet differ from the dosage and instructions on the bottle, follow the instructions on the bottle. [facility] is not responsible for incorrect prescription information provided by the patient during their visit. Do not stop your medications without consulting your health care provider. Please take the list with you to your next doctor's appointment.[facility] Work Phone: 1(758) 797-867603-21-2023 Progress note Author Rubén Tatum [facility] October 13, 2022 9:02am Note Date/Time October 13, 2022 9:0 2am [facility] [address] [place] [address] Cardiology Progress Note Signed Patient: Hector Gaspar MR#: [id number] : 1960 Acct:[id number] Age/Sex: 62 / M Adm Date: 3 Loc: 4 Room: [address] [place] [address] Type: ADM IN Attending Dr: Barbara Rivero [...] on postNSTEMI/PCI metoprolol tartrate. 5. Follow-up in [facility] within 10 days. From there strongly recommend [...] Rubén Tatum MD> 10/13/[address] [facility] Work Phone: 1(106) 153-917603-20-2023 Progress note Author Barbara Rivero [facility] October 12, 2022 2:24pm Note Date/Time October 12, 2022 2:1 2pm [facility] [address] [place] [address] Hospitalist Progress Note Signed Patient: Hector Gaspar SR MR#: [id number] : 1960 Acct:[id number] Age/Sex: 62 / M Adm Date: 3 Loc: Room: [address] [place] [address] Type: ADM IN Attending Dr: Barbara Rivero [...] this time. (3) Ventricular tachycardia seen on environmental monitoring technician: Plan: No further episodes of ventricular tachycardia. [...] the need forpacemaker placement. Documented By: Barbara Rviero MD 10/12/22 1409 Signed By: <Electronically signed by Barbara Rivero MD> 10/12/[address] [facility] Work Phone: 1(878) 470-325303-20-2023 Progress note Author Rubén Tatum [facility] October 12, 2022 10:00am Note Date/Time October 12, 2022 9:5 9am [facility] [address] [place] [address] Cardiology Progress Note Signed Patient: Hector Gaspar SR MR#: [id number] : 1960 Acct:[id number] Age/Sex: 62 / M Adm Date: 3 Loc: 4P Room: [address] [place] [address] Type: ADM IN Attending Dr: Barbara Rivero [...] pacing device. (3) Ventricular tachycardia seen on environmental monitoring technician: Assessment/Problem Details: Stable no further wide-complex tachycardia [...] Rubén Tatum MD> 10/12/[address] [facility] Work Phone: 1(455) 713-773203-19-2023 Progress note Author Barbara Rivero [facility] October 11, 2022 11:24am Note Date/Time October 11, 2022 11: 15am [facility] [address] [place] [address] Hospitalist Progress Note Signed Patient: Hector Gaspar SR MR#: [id number] : 1960 Acct:[id number] Age/Sex: 62 / M Adm Date: 3 Loc: Room: [address] [place] [address] Type: ADM IN Attending Dr: Barbara Rivero [...] smoking cessation. (3) Ventricular tachycardia seen on environmental monitoring technician: Plan: Patient given potassium and magnesium supplement. [...] signed by Barbara Rivero MD> 10/11/[address] [facility] Work Phone: 1(359) 285-848303-19-2023 Progress note Author Rubén Tatum [facility] October 11, 2022 9:41am Note Date/Time October 11, 2022 9:3 3am [facility] [address] [place] [address] Cardiology Progress Note Signed Patient: Hector Gaspar SR MR#: [id number] : 1960 Acct:[id number] Age/Sex: 62 / M Adm Date: 3 Loc: Room: [address] [place] [address] Type: ADM IN Attending Dr: Barbara Rivero [...] % (Auto) 63.8 Lymph % (Auto) 21.8 [place] % (Auto) 10.2 Eos % (Auto) 3.7 Baso % (Auto) 0.5 Nucleat RBC Rel Count 0.1 Neut # (Auto) 4.2 Lymph # (Auto) 1.4 [place] # (Auto) 0.7 Eos # (Auto) 0.2 [...] MPV Neut % (Auto) Lymph % (Auto) [place] % (Auto) Eos % (Auto) Baso % (Auto) Nucleat RBC Rel Count Neut # (Auto) Lymph # (Auto) [place] # (Auto) Eos # (Auto) Baso # [...] PCI with drug-eluting stent [facility] and codominant L PDA. [...] AV node (3) Ventricular tachycardia seen on environmental monitoring technician: Assessment/Problem Details: Not entirely certain that this [...] signed by Rubén Tatum MD> 10/11/[address] [facility] Work Phone: 1(951) 223-241403-18-2023 Progress note Author Barbara Rivero [facility] October 10, 2022 1:33pm Note Date/Time October 10, 2022 1:3 3pm [facility] [address] [place] [address] Event Note Signed Patient: Hector Gaspar SR MR#: [id number] : 1960 Acct:[id number] Age/Sex: 62 / M Adm Date: 3 Loc: Room: [address] [place] [address] Type: ADM IN Attending Dr: Barbara Rivero [...] <Electronically signed by Barbara Rivero MD> 10/10/221332 [facility] Work Phone: 1(171) 129-563303-18-2023 History of Present illness Narrative* Patient presents to the office ambulatory with steady gait. * This is initial in clinic follow-up at [facility]. * October 10, 2022 transferred to [facility] from [facility] d/t NSTEMI. Managed by with uneventful [...] medication regimen. He denies medication side effects. [facility] [address] DO Work Phone: 1(435) 934-770003-18-2023 Procedure [facility]03-18-2023 Procedure [facility]03-18-2023 Consult note Author Rubén Tatum [facility] October 10, 2022 9:54am Note Date/Time October 10, 2022 9:5 1am [facility] [address] [place], [place] [id number] Cardiology Consult Note Signed Patient: Hector Gaspar SR MR#: [id number] : 1960 Acct:[id number] Age/Sex: 62 / M Adm Date: 3 Loc: Room: [address] [place] [address] Type: ADM IN Attending Dr: Barbara Rivero MD Copies to: MD Barbara Barry MD Stephen M Tann, MD~ Cardiology HPI History of Present Illness Consult Date: 10/10/22 Reason for Consult: Nausea, non-STEMI HPI: Mr. Gaspar is a 62 year old male with multiple cardiac risk factors but no known prior coronary heart disease who presented to [place] emergency department lastnight complaining of nausea x2 [...] consistent nausea ever since. He presented to [place] emergency department last evening with these complaints. In the ER at [place] ECG showed Q waves in the inferolateral [...] trend upward to 6000 and then greater [id number]. Echocardiogram at bedside this morning shows normal [...] negative unless noted below or in [facility]?: No Medical History [...] Lymph # (Auto) 1.4 1.4 (1.00-4.8) x10E3/uL [place] # (Auto) 0.6 0.6 (0.0-0.8) x10E3/uL Eos [...] Dysrhythmias Sinus rhythms and dysrhythmias: sinus rhythm SD, pacemaker, normal Myocardial infarction: inferior SD (old age indeterminate) and lateral SD (acuteor recent) A&P - Cardiology (1) NSTEMI [...] signed by Rubén Tatum MD> 10/10/22 0954 [facility] Work Phone: [phone]) 281-802403-18-2023 History and physical note Author Galo Dent [facility] October 10, 2022 7:28am Note Date/Time October 10, 2022 7:2 8am [facility] [address] [place] [address] Hospitalist H&P Signed Patient: Hector Gaspar SR MR#: [id number] : 1960 Acct:[id number] Age/Sex: 62 / M Adm Date: 3 Loc: Room: [address] [place] [address] Type: ADM IN Attending Dr: Barbara Rivero MD Copies to: MD Barbara Barry MD Mushtaq Mahmood, MD~ HPI DATE OF EXAMINATION: 10/10/22 CHIEF COMPLAINT: Non-ST elevation SD HISTORY OF PRESENT ILLNESS: Patient is a 62-year-old gentleman with history of hypertension, heavy smoking about 1-1/2 pack for 45 years, COPD, strong family history of coronary artery disease, came to us from [place] emergency department last night. Patient presented to [...] The ER physician did talk to the sql database administrator here in [facility]. Patient was started on heparin drip, nitro patch was applied. He was sent to our hospital. Upon arrival in the [facility] patient complained about headache. Nitropatch was removed. [...] % (Auto) 27.5 % (.) 10/10/22 06:10 [place] % (Auto) 11.4 % (.) 10/10/22 06:10 Eos % (Auto) 4.4 % (.) 10/10/22 06:10 Baso % (Auto) 0.6 % (.) 10/10/22 06:10 Nucleat RBC Rel Count 0.1 /100 WBC (0-0.5) 10/10/22 06:10 Neut # (Auto) 2.9 x10E3/uL (1.8-7.7) 10/10/22 06:10 Lymph # (Auto) 1.4 x10E3/uL (1.00-4.8) 10/10/22 06:10 [place] # (Auto) 0.6 x10E3/uL (0.0-0.8) 10/10/22 06:10 [...] heartcath by cardiology today. I have consulted [facility] heart. He was offered nicotine patch. [...] Galo Dent MD> 10/10/[address] [facility] Work Phone: [phone] 395-341002-15-2023 Evaluation note* Encounter Date Diagnosis Assessment Notes [...] in office today. Prior medical notes from [place] ED and history have been reviewed. At [...] any surgical interventions. Tobacco cessation program at [facility] has been recommended and offered as well as the national Quitline 6-404-BIKV-NOW. We have discussed pharmacologic treatment including nicotine replacement therapy which can lead to a positive nicotine test as well as nicotine free medications both of which will need to be managed by their PCP. We have provided handout for the [facility] Tobacco Cessation Program. This discussion was limited to 5 minutes. Aug, Other See orders for this visit as documented in the electronic medical record. [facility] Other 01-19-2023 Evaluation note* Encounter Date Diagnosis Assessment Notes Treatment Notes Treatment Clinical Notes Jul, Chronic obstructive pulmonary disease with acute exacerbation (ICD-10 - J44.1) Discussed diagnosis with patient. Medication profile and possible SE reviewed with patient. Take as directed. Keep appt w Dr. Castillo on 08/31. Notify office if not improving or worsening. Patient verbalizes understanding and agrees to treatment plan. [facility] Other 01-05-2023 Evaluation note* Encounter Date Diagnosis Assessment Notes Treatment Notes Treatment Clinical Notes Jul, Chronic obstructive pulmonary disease with acute exacerbation (ICD-10 - J44.1) [facility] Other Discharge summary Author Barbara Rivero [facility] October 13, 2022 2:14pm Note Date/Time October 13, 2022 2:0 9pm [facility] [address] [place] [address] Discharge Summary Signed Patient: Hector Gaspar SR MR#: [id number] : 1960 Acct:[id number] Age/Sex: 62 / M Adm Date: 3 Loc: Room: [address] [place] [address]: Barbara Rivero MD Copies to: [...] transferred from outside facility for non-ST elevated SD. He was started on heparin drip as [...] doctor or pharmacist, without first calling the sql database administrator who implanted the stent. If you require [...] weight lifting, stair steppers, etc. until the sql database administrator approves these activities. Check with the sql database administrator on your first follow-up visit. CALL YOUR PHYSICIAN at [phone]: -If bleeding should occur from the catheter insertion site- apply pressure to the site then immediately call us. -Report any fever, redness, drainage, increased swelling, or firmness at the catheter insertion site. Some bruising or slight swelling may be present at thetime of discharge. -Should arm or leg become cold, numb, white, or blue, contact the sql database administrator immediately. -IF you should experience episodes of [...] is recommended. Please call Central Scheduling at [phone] to schedule your appointment.] The attending sql database administrator or [facility] nurse clinician should provide you with specific instructions regarding activity, diet, medications, and further follow up for you. Follow the medication instructions provided on your discharge. If the dosages and instructions on this sheet differ from the dosage and instructions on the bottle, follow the instructions on the bottle. [facility] is not responsible for incorrect prescription information [...] BY MOUTH EVERY DAY Other Ambulatory Orders: ENVIRONMENTAL SERVICES TECHNICIAN polysom procedure (Routine) Timeframe: 1 Week Location: Determined by Patient Ordered By: Barbara Rivero Follow Up: [facility] Sleep Lab [Outside] (Left message with [facility] regarding need for [...] Barbara Rivero MD> 10/13/[address] [facility] Work Phone: Evaluation noteNo assessment information available [facility] Work Phone: Evaluation noteNo InformationNort VOYAA Other Evaluation note* Diagnosis Onset Date Resolution Status COPD (chronic obstructive pulmonary disease) acute Heart block AV complete acut e Hypertension acute Hypoxemia acute NSTEMI (non-ST elevated myocardial infarction) acute Sleep apnea in adult acute Tobacco abuse acute Ventricular tachycardia seen on environmental monitoring technician acute [facility] Work Phone: Evaluation note* Diagnosis Atherosclerosis of sitka coronary artery of sitka heart without angina pectoris Essential hypertension, benign Mixed hyperlipidemia Ischemic cardiomyopathy Other specified forms of chronic ischemic heart disease Past myocardial infarction Old myocardial infarction Moderate chronic obstructive pulmonary disease ([facility]/HCC) Chronic airway obstruction, not elsewhere classified Obesity (BMI 35.0-39.9 without comorbidity) Current smoker documented in this encounter [facility] Work Phone: Evaluation note* Diagnosis Onset Date Resolution Status COPD (chronic obstructive pulmonary disease) acute Situational anxiety acute [facility] Work Phone: Evaluation note* Diagnosis Onset Date Resolution Status COPD (chronic obstructive pulmonary disease) acute Situational anxiety acute Hypertension acute Coronary artery disease invo lving sitka heart without angina pectoris acute Hypertension acute Situational anxiety acute [facility] Work Phone: Evaluation note* Diagnosis Onset Date Resolution Status Hypertension acute Coronary artery disease invo lving sitka heart without angina pectoris acute Hypertension acute Situational anxiety acute Right knee pain acute Right leg pain acute [facility] Work Phone: Evaluation note* Diagnosis Onset Date Resolution Status Right knee pain acute Right leg pain acute [facility] Work Phone: Evaluation note* Diagnosis Abdominal aortic aneurysm (AAA) without rupture, unspecified part ([facility])- Primary Obstructive chronic bronchitis with exacerbation ([facility]) Obstructive chronic bronchitis with exacerbation Obesity with body mass index (BMI) of 30.0 to 39.9 Chronic obstructive pulmonary disease, unspecified COPD type ([facility]) documented in this encounter [facility] SystemEvaluation note* Diagnosis Abdominal aortic aneurysm (AAA) without rupture, unspecified part ([facility])- Primary Obstructive chronic bronchitis with exacerbation ([facility]) Obstructive chronic bronchitis with exacerbation Obesity with body mass index (BMI) of 30.0 to 39.9 documented in this encounter [facility] SystemEvaluation note* Diagnosis Abdominal aortic aneurysm (AAA) without rupture, unspecified part ([facility])- Primary Obstructive chronic bronchitis with exacerbation ([facility]) Obstructive chronic bronchitis with exacerbation Obesity with body mass index (BMI) of 30.0 to 39.9 documented in this encounter [facility] SystemEvaluation note* Diagnosis Infrarenal abdominal aortic aneurysm (AAA) without rupture ([facility] Primary Bilateral carotid bruits Cigarette smoker Tobacco use disorder documented in this encounter [facility] SystemEvaluation note* Diagnosis Infrarenal abdominal aortic aneurysm (AAA) without rupture ([facility])- Primary Bilateral carotid bruits Cigarette smoker Tobacco use disorder Infrarenal abdominal aortic aneurysm (AAA) without rupture ([facility])- Primary Cigarette smoker motivated to quit Bilateral carotid bruits documented in this encounter [facility] SystemEvaluation note* Diagnosis Preop cardiovascular exam Pre-operative cardiovascular examination Atherosclerosis of sitka coronary artery of sitka heart without angina pectoris Ischemic cardiomyopathy Other specified forms of chronic ischemic heart disease Past myocardial infarction Old myocardial infarction Mixed hyperlipidemia Essential hypertension Unspecified essential hypertension Murmur, heart Undiagnosed cardiac murmurs Moderate chronic obstructive pulmonary disease (Multi) Chronic airway obstruction, not elsewhere classified Lung mass Swelling, mass, or lump in chest Obesity (BMI 35.0-39.9 without comorbidity) Current smoker documented in this encounter [facility] Work Phone: History general Narrative - Reported* [...] History appendectomy 05/02/18 Hospitalization History SEE SURGICAL [facility] Other History general Narrative - Reported* Type [...] 3 Stents 09/2022 Hospitalization History SEE SURGICAL [facility] Other History general Narrative - Reported* Type [...] Stents 09/2022 Hospitalization History SEE SURGICAL HX [facility] Other History general Narrative - Reported* Type [...] History SEE SURGICAL HX Hospitalization History pneumonia [facility] Other InstructionsNot on filedocumented in this encounter [facility] SystemInstructionsNot on filedocumented in this encounter [facility] SystemInstructionsNot on filedocumented in this encounter [facility] System[facility] for [facility] (narrative)* Consultation (Routine) - Authorized Specialty Diagnoses / Procedures Referred By Yang boothe Referred To Contact Cardiology Diagnoses Atherosclerosis of sitka coronary artery of sitka heart without angina pectoris Procedures Follow Up In Cardiology Alok Webber DO [address] [place] [address] Alok Webber DO [address] [place] [address] 2, [place] [address] Referral ID Status Reason Start Date Expiration Date V isits Requested Visits Authorized [id number] Authorized 09/14/2023 09/13/2024 1 1 [facility] Work Phone: Reason for visit Narrative* Consultation (Routine) - Authorized Specialty Diagnoses / Procedures Referred By Yang boothe Referred To Contact Cardiology Diagnoses Atherosclerosis of sitka coronary artery of sitka heart without angina pectoris Procedures Follow Up In Cardiology Alok Webber, DO [address] [place] [address] Phone: tel: fax: Alok Webber, DO [address] [place] [address] Phone: tel: fax: Referral ID Status Reason Start Date Expiration Date V isits Requested Visits Authorized [id number] Authorized 09/14/2023 09/13/2024 1 1 [facility] Work Phone: Chief Complaint and Reason for Visit Chief Complaint M25.561 Elevated Troponin Reason for Visit COPD (chronic obstru ctive pulmonary disease) Heart block AV complete Hypertension Hypoxemia NSTEMI (non-ST elevated myocardial infarction) Sleep apnea in adult Tobacco abuse Ventricular tachycardia seen on environmental monitoring technician Chief Complaint M25.561 Elevated Troponin I25.10 I10 E78.2 Reason for Visit COPD (chronic obstru ctive pulmonary disease) Heart block AV complete Hypertension Hypoxemia NSTEMI (non-ST elevated myocardial infarction) Sleep apnea in adult Tobacco abuse Ventricular tachycardia seen on environmental monitoring technician Chief Complaint M25.561 Elevated Troponin I25.10 I10 E78.2 j98.11 Reason for Visit COPD (chronic obstru ctive pulmonary disease) Heart block AV complete Hypertension Hypoxemia NSTEMI (non-ST elevated myocardial infarction) Sleep apnea in adult Tobacco abuse Ventricular tachycardia seen on environmental monitoring technician Chief Complaint Tbh Amb Documentation Breathing Issues Dizziness Reason for Visit COPD (chronic obstru ctive pulmonary disease) Situational anxiety Chief Complaint Amb Documentation Breathing Issues Dizziness 1 month follow up pain in right calf Reason for Visit COPD (chronic obstru ctive pulmonary disease) Situational anxiety Hypertension Coronary artery disease involving sitka heart without angina pectoris Hypertension Situational anxiety Chief Complaint Dizziness 1 month follow up pain in right calf right leg swollen and painful Reason for Visit Hypertension Coronary artery disease involving sitka heart without angina pectoris Hypertension Situational anxiety [...] December. 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 details of which are unknown * Pulmonary medicine outpatient note is reviewed, plan is to proceed with urgent endobronchial biopsyobviously to rule out malignancy. * Based on current guidelines and most recent literature, this is an appropriate indication to withdraw antiplatelet therapy and proceed with urgent endobronchial biopsy for diagnostic purposes, notably his [place] stents that were recently placed have have [...] Referral Specialty Diagnoses / Procedures Referred By Contac t Referred To Contact Diagnoses Infrarenal abdominal aortic aneurysm (AAA) without rupture ([facility]) Bilateral carotid bruits Cigarette smoker Procedures Echo complete W/O contrast Rom Pierre MD [address], [address] [address] Phone: Referral ID Status Reason Start Date Expiration Date V isits Requested Visits Authorized [id number] Pending Review 03/09/2024 03/09/2025 1 1 Specialty Diagnoses / Procedures Referred By Contac t Referred To Contact Diagnoses Bilateral carotid bruits Procedures Vas carotid duplex bilateral Rom Pierre MD [address], [address] [address] Phone: Referral ID Status Reason Start Date Expiration Date V isits Requested Visits Authorized [id number] Pending Review 03/09/2024 03/09/2025 1 1 Specialty Diagnoses / Procedures Referred By Contac t Referred To Contact Radiology Diagnoses Infrarenal abdominal aortic aneurysm (AAA) without rupture ([facility]) Procedures CT angiogram abdomen and pelvis Rom Pierre MD [address], [address] [address] Phone: Referral ID Status Reason Start Date Expiration Date V isits Requested Visits Authorized [id number] Pending Review 03/09/2024 03/09/2025 1 1 Specialty Diagnoses / Procedures Referred By Contac t Referred To Contact Radiology Diagnoses Abdominal aortic aneurysm (AAA) without rupture, unspecified part ([facility]) Obstructive chronic bronchitis with exacerbation ([facility]) Obesity with body mass index (BMI) of 30.0 to 39.9 Chronic obstructive pulmonary disease, unspecified COPD type ([facility]) Procedures CT angiogram abdomen and pelvis Christopher Sewell MD [address], [address] [address] Phone: Referral ID Status Reason Start Date Expiration Date V isits Requested Visits Authorized [id number] Pending Review 08/22/2023 08/21/2024 1 1 Reason *FU 07/28 5cm AAA - report scanned. Diagnosis 1 Abdominal aortic ane urysm (AAA) without rupture, unspecified part (I71.40) Referral Organization [facility] Referring Provider First Name Brock Referring Provider Last Name Ly Referring Provider Specialty Family Medi cine Referred Organization [facility] Referred Provider Christopher Sewell Referred Address [address] [place], [place],[address] Referred Provider Specialty Vascular Mir michelle Referral Priority Routine General Notes Helen Mendez 09:16:43 AM >received today, attachments made, ntoes locked, referral faxed Clinical Notes p: [phone] f: [id number] Additional Source Comments Care Teams (unrecognized sec [...] End: December 13, 2023 Brenda Jolley APRN BRIQUETTE OPERATOR-C Attending Provider Act carol Start: December 13, [...] Active Adi Campos MD Attending Provider Active Garbage Man Relationship Specialty Start Date End Date Brock Modi MD PCP - General 10/10/22 Team Status: Inactive Member Role Status Dates Brock Modi MD Attending Provider Active St art: August 06, 2023 End: August 06, 2023 Garbage Man Relationship Specialty Start Date End Date Brock Modi MD [address] [place] [id number] PCP - General Family Medicine 09/03/21 Garbage Man Relationship Specialty Start Date End Date Brock Modi MD [address] [place] [address] PCP - General Family Medicine 09/03/21 Garbage Man Relationship Specialty Start Date End Date Brock Modi MD [address] [place] [address] PCP - General Family Medicine 09/03/21 Garbage Man Relationship Specialty Start Date End Date Brock Modi MD [address] [place] [address] PCP - General Family Medicine 09/03/21 Garbage Man Relationship Specialty Start Date End Date Seymour Harper MD [address] [place] [address] PCP - General Family Medicine 09/12/24 Garbage Man Relationship Specialty Start Date End Date Seymour Harper MD [address] [place] [address] PCP - General Family Medicine 09/20/24 Goals (unrecognized section and content) Goals may be documented in a n alternate sectionNo InformationNo InformationNo InformationNo InformationNo InformationNo InformationNo InformationNo InformationNo InformationNo InformationNo InformationNo InformationNo InformationNo InformationNo InformationNo InformationNo InformationNo InformationNo InformationNo InformationNo InformationNo InformationNo InformationNo InformationGoals may be documented in an alternate sectionGoals may be documented in an alternate sectionGoals may be documented in an alternate sectionGoals may be documented in an alternate sectionGoals may be documented in an alternate sectionNot on filedocumented as of this encounterNot on filedocumented as of this encounterNot on filedocumented as of this encounterNot on filedocumented as of this encounterNot on filedocumented as of this encounter REASON FOR VISIT (unrecogniz ed section and content) Reason Comments AAA, CT abd[facility]vis at [facility], carotids Prom edica Reason Comments Abdominal aortic aneurysm (AAA) without rupture, unspecifie 6 month follow up with testing CT angiog mic abd/pel and COKE LOADER Reason Comments Follow-up Yearly follow up. Te sting was in 08/2022. Specialty Diagnoses / Procedures Referred By Yang boothe Referred To Contact Vascular Surgery Diagnoses Abdominal aortic aneurysm (AAA) without rupture, unspecified part ([facility]) Christopher Sewell MD [address], [address] [address] Christopher Sewell MD [address] [place] [address] Referral ID Status Reason Start Date Expiration Date Visits Requested Visits Authorized [id number] Pending Review Specialty Services Required 3 07/21/2024 1 1 Reason Comments Follow-up 6m US resultTBHsleep apnea discussionrefillAlprazolamRecheck Right Knee* Reason for Visit: * Holter Monitor: * HECTOR is here for the application of a 48 hour Holter monitor. * Ordering Physician: JANINE CUNHA * Diagnosis: CAD SINUS PAUSE * [facility] equipment agreement signed. HECTOR understands monitor is to be returned on: 11-03-22 * Monitor number [id number] applied. * Holter monitor returned and downloaded. messagePulmonary Office NotesRef by Dr. Brock Modi for [facility] - HAD HEART ATTACKRight Knee PainCheck Upnot feeling back to normal- discussion (unrecognized sect ion and content) No Status Records FoundNo Status Records FoundNo Status Records FoundNo Status Records FoundNo Status Records FoundNo Status Records FoundNo Status Records Found INFORMATION SOURCE (unrecogn ized section and content) DATE CREATED AUTHOR 11/07/2022 [facility] DATE CREATED AUTHOR AUTHOR'S ORGANIZ ATION 01/02/2023 [employer] DATE CREATED AUTHOR AUTHOR'S ORGANIZ ATION 04/09/2023 [facility] DATE CREATED AUTHOR AUTHOR'S ORGANIZ ATION 06/12/2024 [facility] DATE CREATED AUTHOR AUTHOR'S ORGANIZ ATION 09/14/2024 [facility] DATE CREATED AUTHOR AUTHOR'S ORGANIZ ATION 09/18/2024 [facility] DATE CREATED AUTHOR AUTHOR'S ORGANIZ ATION 09/22/2024 [facility] FOR RECORDS PERTAINING TO PATIENTS WHO [...] BE BASED ON THE PRIMARY CLINICAL RECORDS. [facility]. provides no warranty or guarantee of the accuracy or completeness of information in this document.
--- NOTE | 2024-09-24 19:16 | ED_ITS ---
HPI HPI - General Adult General Chief complaint: Upper Respiratory Infection Stated complaint: Upper Respiratory Infection Time Seen by Provider: 09/24/24 19:04 History of Present Illness HPI narrative: The patient is a 64-year-old male who have history of COPD is coming to the ER after he 2 days ago started having coughing with more phlegm production, patient mentioned that he used his inhaler at home but he is not sure if he had to use it once or twice, patient denies any other complaints Related Data Home Medications ?Medication ?Instructions ?Recorded ?Confirmed aspirin 81 mg chewable tablet 1 tab PO DAILY 01/24/23 09/03/24 atorvastatin 80 mg tablet 80 mg PO QPM 01/24/23 09/03/24 valsartan 160 mg tablet 160 mg PO DAILY 09/01/23 09/03/24 clopidogrel 75 mg tablet (Plavix) 75 mg PO DAILY 10/09/23 09/03/24 ciprofloxacin HCl 500 mg tablet mg 09/03/24 Previous Rx's ?Medication ?Instructions ?Recorded albuterol sulfate 90 mcg/actuation 2 inh inhalation Q4H PRN shortness 08/10/24 aerosol inhaler of breath or wheezing #8.5 grams doxycycline hyclate 100 mg tablet 100 mg PO BID 7 days #14 tabs 08/10/24 prednisone 20 mg tablet 60 mg (3 x 20 mg) PO DAILY 3 days 08/10/24 #9 tabs azithromycin 250 mg tablet See Rx Instructions PO .COMPLEX #6 09/03/24 (Zithromax Z-Maury) tabs prednisone 10 mg tablet See Rx Instructions .Route 09/03/24 .COMPLEX #30 tabs azithromycin 250 mg tablet See Rx Instructions PO .COMPLEX #6 09/24/24 (Zithromax Z-Maury) tabs prednisone 20 mg tablet 40 mg (2 x 20 mg) PO DAILY 5 days 09/24/24 #10 tabs Allergies Allergy/AdvReac Type Severity Reaction Status Date / Time Penicillins Allergy Severe Hives Verified 09/03/24 22:21 pneumonia shot AdvReac Intermediate Unknown Uncoded 09/03/24 22:21 Opioid HPI Opioid Management Most Recent Opioid Data: No Data to Display Review of Systems ROS Status of ROS 10 or more systems reviewed and unremark able except as noted in history and below PFS PFS Medical History (Updated 09/24/24 @ 19:17 by Anjana Recio MD) Hypercholesterolemia ?E78.00 - Pure hypercholesterolemia, unspecified (ICD-10) COPD (chronic obstructive pulmonary disease) ?J44.9 - Chronic obstructive pulmonary disease, unspecified (ICD-10) Social History Smoking status: Current every day smoker Little interest or pleasure in doing things: not at all Feeling down, depressed, or hopeless: not at all Exam Narrative Exam Narrative: Nurses notes and vital signs reviewed and patient is not hypoxic. General: Well-appearing and in no apparent distress. Skin: Warm, dry, no pallor noted. No rash. Head: Normocephalic, atraumatic. Neck: Supple, non-tender. Eye: Pupils are equal, round and EOMI. No scleral icterus. Ears, Nose, Mouth, and Throat: TM are clear, no nasal mucosal hypertrophy. Oral mucosa is moist, no posterior oropharynx erythema, uvula is mid-line Cardiovascular: Regular Rate and Rhythm without murmur, gallop or rub. Respiratory: Bilateral expiratory lung wheezes in both lung baer Back: No midline thoracic or lumbar vertebral tenderness. No CVA tenderness Musculoskeletal: normal ROM, no calf or popliteal tenderness, no lower extrem ity edema/swelling GI: Abdomen is soft, non-distended. Normal bowel sounds. No masses appreciated. No tenderness to palpation. No rebound, guarding, or rigidity noted. Neurological: A&O x4. No cranial nerve dysfunction observed. No truncal ataxia. Moves all extremities. Sensation intact. Psychiatric: Cooperative and interactive. Normal mood and affect. Constitutional Vital Signs, click to edit/add: Last Vital Signs Temp 97.8 F 09/24/24 18:49 Pulse 100 H 09/24/24 18:49 Resp 20 09/24/24 18:49 BP 141/96 H 09/24/24 18:49 Pulse Ox 98 09/24/24 18:49 O2 Del Method Room Air 09/24/24 18:49 Course Vital Signs Vital signs: Vital Signs Temperature 97.8 F 09/24/24 18:49 Pulse Rate 100 H 09/24/24 18:49 Respiratory Rate 20 09/24/24 18:49 Blood Pressure 141/96 H 09/24/24 18:49 Pulse Oximetry 98 09/24/24 18:49 Oxygen Delivery Method Room Air 09/24/24 18:49 Temperature 97.8 F 09/24/24 18:49 Pulse Rate 100 H 09/24/24 18:49 Respiratory Rate 20 09/24/24 18:49 Blood Pressure 141/96 H 09/24/24 18:49 Pulse Oximetry 98 09/24/24 18:49 Oxygen Delivery Method Room Air 09/24/24 18:49 Medical Decision Making MDM Narrative Medical decision making narrative: The patient presented to us with a COPD exacerbation he was started on prednisone as well as Z-Maury and provided with a breathing treatment in the ER The patient was then discharged with prednisone and Z-Maury in addition to i nstruction to take his Advair twice a day and uses albuterol as needed The patient is to follow up with primary care physician in next 2-3 days or to return to the emergency department should any of the signs or symptoms worsen or new symptoms develop. The patient agrees with the following Diagnosis and Treatment plan and the patient will be discharged home. Discharge Plan Discharge Chief Complaint: Upper Respiratory Infection Clinical Impression: COPD with acute exacerbation Patient Disposition: Home, Self-Care Time of Disposition Decision: 19:17 Condition: Good Prescriptions / Home Meds: New prednisone 20 mg tablet 40 mg PO DAILY 5 Days Qty: 10 0RF azithromycin [Zithromax Z-Maury] 250 mg tablet See Rx Instructions .ROUTE .COMPLEX Qty: 6 0RF Rx Instructions: For 250 mg dose pack: take 500 mg today (day 1), then 250 mg for 4 days (days 2-5) No Action aspirin 81 mg tablet,chewable 1 tab PO DAILY atorvastatin 80 mg tablet 80 mg PO QPM valsartan 160 mg tablet 160 mg PO DAILY Rx Instructions: HS prednisone 20 mg tablet 60 mg PO DAILY 3 Days Qty: 9 0RF albuterol sulfate 90 mcg/actuation HFA aerosol inhaler 2 inh inhalation Q4H PRN (Reason: shortness of breath or wheezing) Qty: 8.5 0RF doxycycline hyclate 100 mg tablet 100 mg PO BID 7 Days Qty: 14 0RF ciprofloxacin HCl 500 mg tablet prednisone 10 mg tablet See Rx Instructions .ROUTE .COMPLEX Qty: 30 0RF Rx Instructions: 4 by mouth daily for three days then 3 by mouth daily for three days then 2 by mouth daily for three days then 1 by mouth daily for three days azithromycin [Zithromax Z-Maury] 250 mg tablet See Rx Instructions .ROUTE .COMPLEX Qty: 6 0RF Rx Instructions: For 250 mg dose pack: take 500 mg today (day 1), then 250 mg for 4 days (days 2-5) clopidogrel [Plavix] 75 mg tablet 75 mg PO DAILY Print Language: Occitan Instructions: COPD (Chronic Obstructive Pulmonary Disease) (ED) Referrals: Sukumar Davison MD [Primary Care Provider] - 1 week
[2024-09-24] MEDS: AZITHROMYCIN 250 MG TABLET 500 MG PO (19:22)
[2024-09-24] MEDS: PREDNISONE 20 MG TABLET 40 MG PO (19:22)
[2024-09-24 19:31] VITALS: PULSE 74; O2SAT 95
[2024-09-24] MEDS: IPRATROPIUM/ALBUTEROL SULFATE 3 ML AMPUL.NEB IH (19:31)
[2024-09-24 19:39] VITALS: BP 108/71; PULSE 70; O2SAT 98
== END 2024-09-24 19:43 | disposition home or self-care (01) ==
PROVIDERS: Emergency Provider Emergency Medicine; PCP Family Medicine
DX: J44.1 Chronic obstructive pulmonary disease with (acute) exacerbation (principal); F17.200 Nicotine dependence, unspecified, uncomplicated
CPT/HCPCS: 94640; 99283; J7512

== ENCOUNTER 2024-09-27 13:15 | Outpatient (OUT) | payer OTHER, SELFPAY ==
--- NOTE | 2024-09-27 13:19 | XR_ITS ---
The [address] [address] Patient Name: HECTOR HIGHTOWER MRN: [id number] date: 1960 Sex: M Assigned Patient Location: RAD Current Patient Location: [facility] Accession/Order Number: [id number] Exam Date: 09/27/2024 23:32 Report Date: 09/27/2024 23:34 At the request of: DELL ARMIJO Procedure: XR chest 2V Chest 2 views CLINICAL HISTORY: Lung Mass R91.8 COMPARISON: Chest 09/03/2024 FINDINGS: Heart normal in size. Prominence of the medial aspect of the right lower lobe likely related to the patient's known mass seen on a prior CT study from 08/11/2024. No new consolidation pneumothorax pleural effusion or free air. XR/XR chest 2V IMPRESSION: PROMINENCE OF THE MEDIAL ASPECT OF THE RIGHT LOWER LOBE LIKELY REPRESENTING THE PATIENT'S KNOWN MASS SEEN ON A PRIOR CT STUDY. NO NEW PROCESS IS SEEN. Impression dictated by: Parrish Layton Jr., D.O.09/27/2024 11:34 PM Dictation Location: [place] [address] Electronically authenticated by: [id number] Y Date: 09/27/2024 23:34
== END 2024-09-27 13:16 | disposition home or self-care (01) ==
LOC: RAD 13:16
PROVIDERS: PCP Family Medicine; Visit Provider Internal Medicine Cardiovascular Disease
DX: R91.8 Other nonspecific abnormal finding of lung field (principal)
CPT/HCPCS: 71046

== ENCOUNTER 2024-10-16 09:03 | Outpatient (OUT) | payer OTHER, SELFPAY ==
--- NOTE | 2024-10-16 09:00 | RT_ITS ---
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 Findings were considered accurate and reproducible, with exception of DLCO which did not meet ATS standards. Both pre- and post-bronchodilator values utilized for spirometry. Spirometry: -FEV1/FVC: Normal @ 73% -FEV1: Mildly reduced @ 72% -FVC: Mildly reduced @ 74% -There is no significant bronchodilator response. Lung volumes by plethysmography: -RV: Increased @ 185% -TLC: Normal @ 110% Diffusion capacity: -DLCO: Moderate reduction @ 57% when corrected for Hb 14.2g/dL Comparison from 08/10/2022: -FEV1/FVC: 74% -FEV1: 79% -FVC: 80% -T% -DLCO: 69% Impressions: -Spirometry is trending towards a moderate obstructive pattern without a bronchodilator response. Elevated RV could indicate air trapping. Moderate diffusion impairment. Overall study suggests underlying COPD/emphysema. When compared to prior testing, there is a slight decline in spirometry and mild-moderate decrease in DLCO, possibly indicating desease progression. Clinical correlation required. Electronically Signed On 10-17-2024 8:47:01 EDT by Jordy Mcrae
--- OUTSIDE RECORDS SUMMARY | 2024-10-16 09:26 | XMS_ITS | CCD ---
Author Organization [facility] Care Team Providers Care Manager Of Community Relations Name Role Phone DO Wagner Marrufo Attending Provider Brock Modi Unavailable Wagner Marrufo Unavailable DO Wagner Marrufo Attending Provider MD Brock Modi Primary Care Provider [phone] MD Janes Dentq Admit Provider [phone] MD Barbara Rivero Attending Provider Brock [...] Unavailable SISTER, JUSTIN Consulting Unavailable LY, DR BORCK Urbano Consulting Unavailable LY, DR BROCK Urbano [...] Care Brock Leon MD Primary Care Provider Brock Modi Primary Care Unavailable Adi Campos Attending Unavailable Adi Campos Admitting Unavailable Brock Modi MD Primary Care Provider CHRISTOPHER SEWELL Referring Unavailable BROCK MODI Primary Care Unavailable CHRISTOPHER SEWELL Referring Unavailable BROCK MODI Primary Care Unavailable GEVOANYROM F Attending Unavailable GEOVANY, MECCAAMED F Referring Unavailable SEYMOUR HARPER Primary Care Unavailable GEOVANY, MECCAAMED F Attending Unavailable GEOVANY, MOHAMED F Referring Unavailable SEYMOUR HARPER Primary Care Unavailable Unavailable Primary Care Provider Syemour Adler MD Primary Care Provider [phone] ROM PIERRE F Attending Unavailable BROCK MODI [...] of action (substance) Drug allergy Edema, Unknown [facility] [employer] Other (20 sources) Pneumococcal 7-Zulma Conj Vacc Drug allergy undefined, Comment:pneumo nococcal 23 [facility] [employer] Other (20 sources) Penicillins; Translations: [Penicillins] Propensity to adverse reactions 05-29-20 13 Hives, Swelling [facility] (19 sources) Pneumococcal vaccine; Translations: [pneumococcal vaccine] Drug Allergy 08-08-19 22 Other, Nausea And Vomiting [facility] (8 sources) Pneumococcal vaccine; Translations: [Pneumococcal Vaccines] Drug Allergy Hives [place] [address] DO Work Phone: (2 sources) Penicillin Drug Allergy 07-29-19 16 Unknown [facility] [employer] Other (2 sources) patient allergy list reviewed by nurse or physicia Propensity to adverse reactions 07-29-19 16 Comment:Done [facility] [employer] Other (2 sources) Allergies Reconciled Propensity to adverse reactions Unknown [facility] [employer] Other (5 sources) pneumococcal 7-valent conjugate to Allergy to substance 10-26-19 24 Comment:pneumo nococcal 23 [facility] (7 sources) Ciprofloxacin; Translations: [CIPROFLOXACIN HCL] Drug Allergy 08-08-19 22 [facility] Current Medications Medication Drug Class(es) [...] mg tablet Indications: Atherosclerotic heart disease of [place] coronary artery without angina pectoris TAKE 1 TABLET BY MOUTH EVERYDAY AT BEDTIME 90 tablet 3 08/23/2023 09/20/2024 Discontinued (Reorder) Start: 10-21-2022 take 1 tablet by da th at bedtime Atorvastatin Calcium 80 MG Oral Tablet TAKE 1 TABLET AT BEDTIME. Quantity: 90 Refills: 3 Ordered: 21-Oct-2022 Braden Cunha APRN-DEVELOPMENT REPJanine Start : 21-Oct-2022 Active azithromycin 250 mg [...] (Plavix) 75 mg tablet Indications: Atherosclerosis of [place] coronary artery of [place] heart without angina pectoris Take 1 tablet (75 mg) by mouth once daily. 90 tablet 3 09/20/2024 Active Start: 09-14-2023 End: 09-20-2024 take 1 tablet by mouth once daily clopidogrel (Plavix) 75 mg tablet Indications: Atherosclerosis of [place] coronary artery of [place] heart without angina pectoris TAKE 1 TABLET [...] Active Start: 12-24-2022 take 1 tablet by [facility] twice daily Metoprolol Tartrate 25 MG Oral [...] Start: 11-12-2022 take 2 tablets by mo [facility] every twenty-four hours predniSONE [...] 5 mg capsule Take by mouth. 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 Ordering Physician: Rom Pierre M.D. Date of Service: 09/11/24 Procedure(s): CT angio abdomen pelvis Accession Number(s): [id number] cc: Seymour Harper M.D. [place] [id number] Patient Name: HECTOR GASPAR MRN: [id number] date: 1960 Sex: M Assigned Patient Location: CT Current Patient Location: CT Accession/Order Number: [id number] Exam Date: 09/11/2024 13:03 Report Date: 09/11/2024 [...] Signed By: 09/11/24 1600 DD/ 1557 TD/TT: Fur Joiner: AAMIR Radiology, Radiologterrell pugh MD - 09/12/2024 [place] [address] CT Scan Report Signed Patient: HECTOR GASPAR MR#: [id number] : 1960 Acct:[id number] Age/Sex: 64 / M ADM Date: 09/11/24 Loc: CT Attending Dr: Rom Pierre M.D. Ordering Physician: Rom Pierre M.D. Date of Service: 09/11/24 Procedure(s): CT angio abdomen pelvis Accession Number(s): [id number] cc: Seymour Harper M.D. [place] [address] Patient Name: HECTOR GASPAR MRN: [facility]:[id number] date: 1960 Sex: M Assigned Patient Location: CT Current Patient Location: CT Accession/Order Number: [id number] Exam Date: 09/11/2024 13:03 Report Date: 09/11/2024 [...] Signed By: 09/11/24 1600 DD/ 1557 TD/TT: Fur Joiner: [facility] Radiology Study observation (narrative) [facility] CT ANGIO ABDOMEN PELVISOrder ed By: Radiologist Radiology on 09-11-2024 [facility] Work Phone: Basophils Auto (Bld) [#/Vol] [...] challengeon 05-07-2024 Albumin [Mass/Vol] 3.7 g/dL 3.4-5.0 [facility] ALP [Catalytic activity/Vol] 67 U/L 46-116 [facility] ALT [Catalytic activity/Vol] 26 U/L 16-63 [facility] AST [Catalytic activity/Vol] 19 U/L 15-37 [facility] Bilirubin [Mass/Vol] 0.4 mg/dL 0.2-1.0 [facility] Calcium [Mass/Vol] 9.3 mg/dL 8.5-10.1 [facility] Chloride [Moles/Vol] 104 mmol/L 98-107 [facility] CO2 [Moles/Vol] 27.0 mmol/L 21.0-32.0 [facility] Creatinine [Mass/Vol] 1.38 mg/dL High 0.70-1.30 [facility] GFR/1.73 sq M.predicted MDRD (S/P/Bld) [Vol rate/Area] mL/min/{1.73_m2} >=60 mL/min/1.7 3m 2 [facility] Glucose [Mass/Vol] 111 mg/dL High 74-106 [facility] Natriuretic peptide B (Bld) [Mass/Vol] 87.0 pg/mL <=900.0 [facility] Potassium [Moles/Vol] 4.1 mmol/L 3.5-5.1 [facility] Protein [Mass/Vol] 7.4 g/dL 6.4-8.2 [facility] Sodium [Moles/Vol] 141 mmol/L 136-145 [facility] Urea nitrogen [Mass/Vol] 18.0 mg/dL 7.0-18.0 [...] 05-07-2024 MCHC (RBC) [Mass/Vol] 34.7 g/dL 29.9-35.2 [facility] MCV Auto (RBC) [Entitic vol] on [...] Eosinophils # (Auto) 0.2 10 3/uL 0.0-0.7 [facility] Immature Granulocyte # (Auto) 0.01 10 [...] PT Coag (PPP) [Time] 10.2 s 9.0-11.6 [facility] RBC Auto (Bld) [#/Vol]on RBC (Bld) [#/Vol] 4.46 10 6/uL Low 4.70-6.10 [facility] Serum or plasma albumin/glob ulin mass ratioon 05-07-2024 Albumin/Globulin [Mass ratio] 1.0 {ratio} [facility] Serum or plasma anion gap de terminationon 05-07-2024 Anion gap [Moles/Vol] 14.1 mmol/L [facility] CT CTA ABD AND PELVISon 02-23 [...] Marie MD on 03/07/2024 12:12 PM Normal [facility] Basophils Auto (Bld) [#/Vol] on 10-09-2023 [...] challengeon 10-09-2023 Albumin [Mass/Vol] 3.5 g/dL 3.4-5.0 [facility] ALP [Catalytic activity/Vol] 64 U/L 46-116 [facility] ALT [Catalytic activity/Vol] 35 U/L 16-63 [facility] AST [Catalytic activity/Vol] 24 U/L 15-37 [facility] Bilirubin [Mass/Vol] 0.4 mg/dL 0.2-1.0 [facility] Calcium [Mass/Vol] 9.0 mg/dL 8.5-10.1 [facility] Chloride [Moles/Vol] 102 mmol/L 98-107 [facility] CO2 [Moles/Vol] 27.8 mmol/L 21.0-32.0 [facility] Creatinine [Mass/Vol] 1.58 mg/dL 0.70-1.30 [facility] GFR/1.73 sq M.predicted MDRD (S/P/Bld) [Vol rate/Area] 54 mL/min/{1.73_m2} >=60 [facility] Glucose [Mass/Vol] 96 mg/dL 74-106 [facility] Potassium [Moles/Vol] 4.3 mmol/L 3.5-5.1 [facility] Protein [Mass/Vol] 6.9 g/dL 6.4-8.2 [facility] Sodium [Moles/Vol] 136 mmol/L 136-145 [facility] Urea nitrogen [Mass/Vol] 26.0 mg/dL 7.0-18.0 [...] 10-09-2023 MCHC (RBC) [Mass/Vol] 33.2 g/dL 29.9-35.2 [facility] MCV Auto (RBC) [Entitic vol] on [...] Eosinophils # (Auto) 0.2 10 3/uL 0.0-0.7 [facility] Immature Granulocyte # (Auto) 0.03 10 [...] RBC (Bld) [#/Vol] 3.91 10 6/uL 4.70-6.10 [facility] Serum or plasma albumin/glob ulin mass ratioon 10-09-2023 Albumin/Globulin [Mass ratio] 1.0 {ratio} [facility] Serum or plasma anion gap de terminationon 10-09-2023 Anion gap [Moles/Vol] 10.5 mmol/L [facility] CT CTA ABD AND PELVISon 09-23 [...] Marie MD on 10/04/2023 3:36 PM Normal [facility] Office Visit (Cardiology)on 12-24-2022 Follow-up visit Diagnoses/Problems Assessed Coronary artery disease involving [place] coronary artery of [place] heart without angina pectoris (414.01) (I25.10) Preoperative [...] we can help. You may also call 1-318-WQTXNOW for free resources and assistance.; Status:Complete - [...] 2012 that has been followed reportedly at [facility] details of which are unknown Pulmonary medicine outpatient note is reviewed, plan is to proceed with urgent endobronchial biopsy obviously to rule out malignancy. Based on current guidelines and most recent literature, this is an appropriate indication to withdraw antiplatelet therapy and proceed with urgent endobronchial biopsy for diagnostic purposes, notably his [place] stents that were recently placed have have [...] MG Sublingu (more content not included)... Normal [facility] Tobacco Screening.on 023 Fall risk assessment c) Not medically indicated -[facility] [address] DO Work Phone: Tobacco use status CP a) Yes [facility] [facility] 250 DO Work Phone: Tobacco Screening. Yes [facility] [facility] 250 DO Work Phone: Cardiovasc Arrhythmia Result son 11-02-2022 Cardiovasc Arrhythmia Results Reason For Visit Reason for Visit: Holter Monitor: HECTOR is here for the application of a 48 hour Holter monitor. Ordering Physician: JANINE CUNHA Diagnosis: CAD SINUS PAUSE [facility] equipment agreement signed. HECTOR understands monitor is to be returned on: 11-03-22 Monitor number [id number] applied. Holter monitor returned and downloaded. Procedure [...] symptomatic Diagnosis/Problems Assessed Coronary artery disease involving [place] coronary artery of [place] heart without angina pectoris (414.01) (I25.10) Sinus pause (426.6) (I45.5) Future Appointments Date/TimeProviderSpecialt ySite 01/19/2023 02:[address] [facility] 2 [address] 250 DO Signatures Electronically signed by : Mallory Fan MA; Nov 02 2022 2:10PM EST (Author) Electronically signed by : Mohsen Gonaslves MD; Nov 08 2022 5:34PM EST (Author) Normal [facility] Calcium [Mass/volume] in Ser um or PlasmaOrdered By: Janine Cunha on 10-28-2022 Calcium [Mass/Vol] 9.5 mg/dL 8.6-10.3 [facility] Carbon dioxide, total [Moles /volume] in Serum or PlasmaOrdered By: Janine Cunha on 10-28-2022 CO2 [Moles/Vol] 25.8 mmol/L 21.0-31.0 [facility] Chloride [Moles/volume] in S lisa or PlasmaOrdered By: Janine Cunha on 10-28-2022 Chloride [Moles/Vol] 107 mmol/L 98-107 [facility] Creatinine [Mass/volume] in Serum or PlasmaOrdered By: Janine Cunha on 10-28-2022 Creatinine [Mass/Vol] 1.16 mg/dL 0.70-1.30 [facility] Glucose [Mass/volume] in Ser um or PlasmaOrdered By: Janine Cunha on 10-28-2022 Glucose [Mass/Vol] 100 mg/dL 70-100 [facility] Comment on above: ADA recommended [...] No Panel Informationon 10-28 > 60.0 Normal [facility] [employer] 600 DO Work Phone: [phone] 11.6\S\11.6 Normal 6.0-15.0 [facility] 600 DO Work Phone: [phone] 9.5\S\9.5 Normal 8.6-10.3 [facility] Work Phone: [phone] Comment on above: PERFORMED BY:[place] [address] [place], [place] [id number] MEDICAL DIRECTORJANETTE DE LA FUENTE M.D. 25.8\S\25.8 Normal 21.0-31.0 [facility] DO Work Phone: [phone] 107\S\107 Normal 98-107 [facility] 600 DO Work Phone: [phone] 4.4\S\4.4 Normal 3.5-5.1 [facility] DO Work Phone: [phone] 140\S\140 Normal 136-145 [facility] DO Work Phone: [phone] 1.16\S\1.16 Normal 0.70-1.30 [facility] [place] [address] DO Work Phone: 27\S\27 above high threshold 7-25 [facility] DO Work Phone: 100\S\100 Normal 70-100 [facility] DO Work Phone: Comment on above: Random Glucose Refer ence Range is dependent on time and content of last meal. Glucose of more than 200 mg/dL in a nonstressed, ambulatory subject supports the diagnosis of Diabetes Mellitus. ADA recommended reference range Potassium [Moles/volume] in Serum or PlasmaOrdered By: Janine Cunha on 10-28-2022 Potassium [Moles/Vol] 4.4 mmol/L 3.5-5.1 [facility] Serum or plasma anion gap de terminationOrdered By: Janine Cunha on 10-28-2022 Anion gap [Moles/Vol] 11.6 mmol/L 6.0-15.0 [facility] Sodium [Moles/volume] in Ser um or PlasmaOrdered By: Janine Cunha on 10-28-2022 Sodium [Moles/Vol] 140 mmol/L 136-145 [facility] Urea nitrogen [Mass/volume] in Serum or PlasmaOrdered By: Janine Cunha on 10-28-2022 Urea nitrogen [Mass/Vol] 27 mg/dL 7-25 [facility] Tobacco Screening.on 023 Adult depression screening assessment No [facility] [facility] 250 DO Work Phone: Fall risk assessment a) No falls within the last year [facility] [facility] 250 DO Work Phone: Tobacco use status CPHS a) Yes [facility] 250 DO Work Phone: Tobacco Screening. Yes [facility] [facility] 250 DO Work Phone: Calcium [Mass/volume] in Ser um or PlasmaOrdered By: Rubén Tatum on 10-12-2022 Calcium [Mass/Vol] 9.0 mg/dL 8.6-10.3 [facility] Carbon dioxide, total [Moles /volume] in Serum or PlasmaOrdered By: Rubén Tatum on 10-12-2022 CO2 [Moles/Vol] 25.2 mmol/L 21.0-31.0 [facility] Chloride [Moles/volume] in S lisa or PlasmaOrdered By: Rubén Tatum on 10-12-2022 Chloride [Moles/Vol] 107 mmol/L 98-107 [facility] Creatinine [Mass/volume] in Serum or PlasmaOrdered By: Rubén Tatum on 10-12-2022 Creatinine [Mass/Vol] 1.09 mg/dL 0.70-1.30 [facility] Glucose [Mass/volume] in Ser um or PlasmaOrdered By: Rubén Tatum on 10-12-2022 Glucose [Mass/Vol] 100 mg/dL 74-109 [facility] Comment on above: ADA recommended [...] on 10-12-2022 Magnesium [Mass/Vol] 2.2 mg/dL 1.9-2.7 [facility] Natriuretic peptide B [Mass/ Vol]Ordered By: Rubén Tatum on 10-12-2022 Natriuretic peptide B (Bld) [Mass/Vol] 91.0 pg/mL 5-100 [facility] No Panel InformationOrdered By: Rubén Tatum on 10-12-2022 Pharmacy Creatinine Clearance (Chem 79.69 [facility] Potassium [Moles/volume] in Serum or PlasmaOrdered By: Rubén Tatum on 10-12-2022 Potassium [Moles/Vol] 4.2 mmol/L 3.5-5.1 [facility] Serum or plasma anion gap de terminationOrdered By: Rubén Tatum on 10-12-2022 Anion gap [Moles/Vol] 12.0 mmol/L 6.0-15.0 [facility] Sodium [Moles/volume] in Ser um or PlasmaOrdered By: Rubén Tatum on 10-12-2022 Sodium [Moles/Vol] 140 mmol/L 136-145 [facility] Urea nitrogen [Mass/volume] in Serum or PlasmaOrdered By: Rubén Tatum on 10-12-2022 Urea nitrogen [Mass/Vol] 23 mg/dL 7 [facility] Alanine aminotransferase [En zymatic activity/volume] in Serum or PlasmaOrdered By: Rubén Tatum on 10-11-2022 ALT [Catalytic activity/Vol] 18 U/L 7 [facility] Albumin [Mass/volume] [...] on 10-11-2022 Bilirubin [Mass/Vol] 0.4 mg/dL 0.3-1.0 [facility] Cholesterol [Mass/volume] in Serum or PlasmaOrdered By: Rubén Tatum on 10-11-2022 Cholesterol [Mass/Vol] 221 mg/dL 140-200 [facility] Comment on above: Chol less than [...] PT Coag (PPP) [Time] 11.3 s 9.0-12.9 [facility] Leukocytes [#/volume] correc kal for [...] 10-11-2022 MCHC (RBC) [Mass/Vol] 33.7 g/dL 32.5-35.6 [facility] MCV Auto (RBC) [Entitic vol] Ordered [...] on 10-11-2022 Protein [Mass/Vol] 6.4 g/dL 6.4-8.9 [facility] RBC Auto (Bld) [#/Vol]Ordere d By: Galo Dent on 10-11-2022 RBC (Bld) [#/Vol] 4.21 10*6/uL 3.90-5.60 [facility] Serum or plasma albumin/glob ulin mass ratioOrdered [...] back by: HECTOR LOCO at: 10/11/2022 06:45:50 by:[id number] WBC Auto (Bld) [#/Vol]Ordere d By: Galo Dent on 10-11-2022 WBC (Bld) [#/Vol] 6.6 10*3/uL 4.1-10.5 [facility] AMYLASEon 10-10-2022 Amylase [Catalytic activity/Vol] 40 U/L Normal 25-115 [facility] Comment on above: Performed By: #### A MY, CMP, LIPA #### [facility] [address] [place] [address] [address] Carrington Chandler Activated partial thrombopla stin time (aPTT) in platelet poor plasma by coagulation aOrdered By: Galo Dent on 10-10-2022 aPTT Coag (PPP) [Time] 35.9 s 25.1-36.5 [facility] CARDIAC ARLIN ADMITon 023 CK [Catalytic activity/Vol] 530 U/L Critically high 39-308 [facility] Comment on above: Performed By: #### A MY, CMP, LIPA #### [facility] [address] [place] [address] [address] Carrington Chandler CK.MB [Mass/Vol] 60.47 ng/mL Critically high <=3.60 [facility] Comment on above: Performed By: #### A MY, CMP, LIPA #### [facility] [address] [place] [address] [address] Carrington Chandler HSTROP 9166.1 pg/mL Critically high 4.0-76.1 [facility] Comment on above: Result Comment: CUT- OFF POINTS HAVE BEEN ESTABLISHED BASED ON THE FOURTH UNIVERSAL DEFINITIONS OF MYOCARDIAL INFARCTION. THE UPPER REFERENCE LIMIT (URL) OF TROPONIN, DEFINED THE 99TH PERCENTILE OF cTnI DISTRIBUTION IN A REFERENCE POPULATION, HAS BEEN CONFIRMED THE DECISION THRESHOLD FOR OK DIAGNOSIS. Performed By: #### A MY, CMP, LIPA #### [facility] [address] [place] [address] [address] Carrington Chandler SAULO 108 ng/mL Critically high 16-96 [facility] Comment on above: Performed By: #### A MY, CMP, LIPA #### [facility] [address] [place] [address] [address] Carrington Chandler CBC AUTO DIFFon 10-10-2022 BASO # 0.0 103/ul Normal 0.0-0.1 [facility] Comment on above: Performed By: #### B MP #### [facility] [address] [place] [address] Dr. Carrington Chandler Basophils/100 WBC (Bld) 0.4 % Normal 0.2-2.0 [facility] Comment on above: Performed By: #### B MP #### [facility] [address] [place] [address] Dr. Carrington Chandler EO # 0.3 103/ul Normal 0.0-0.7 [facility] Comment on above: Performed By: #### B MP #### [facility] [address] [place] [address] Dr. Carrington Chandler Eosinophils/100 WBC (Bld) 4.9 % Normal 0.9-7.0 [facility] Comment on above: Performed By: #### B MP #### [facility] [address] [place] [address] Dr. Carrington Chandler Erythrocyte distribution width (RBC) [Ratio] 13.8 % Normal 11.0-15.0 [facility] Comment on above: Performed By: #### B MP #### [facility] [address] [place] [address] Dr. Carrington Chandler Hematocrit (Bld) [Volume fraction] 38.1 % Critically low 42.0-54.0 [facility] Comment on above: Performed By: #### B MP #### [facility] [address] [place] [address] Dr. Carrington Chandler Hemoglobin (Bld) [Mass/Vol] 13.1 g/dL Critically low 14.0-18.0 [facility] Comment on above: Performed By: #### B MP #### [facility] [address] [place] [address] [address] Carrington Chandler IG # 0.01 10e3/ul Normal 0.00-0.03 [facility] Comment on above: Performed By: #### B MP #### [facility] [address] [place] [address] Dr. Carrington Chandler IG % 0.2 % Normal 0.0-0.5 [facility] Comment on above: Performed By: #### B MP #### [facility] [address] [place] [address] Dr. Carrington Chandler LYMPH # 1.8 103/ul Normal 1.2-3.8 [facility] Comment on above: Performed By: #### B MP #### [facility] [address] [place] [address] Dr. Carrington Chandler Lymphocytes/100 WBC (Bld) 33.5 % Normal 20.5-60.0 [facility] Comment on above: Performed By: #### B MP #### [facility] [address] [place] [address] Dr. Carrington Chandler MANUAL DIFF REQ NO Normal [facility] Comment on above: Performed By: #### B MP #### [facility] [address] [place] [address] Dr. Carrington Chandler MCH (RBC) [Entitic mass] 30.7 pg Normal 25.9-34.0 [facility] Comment on above: Performed By: #### B MP #### [facility] [address] [place] [address] Dr. Carrington Chandler MCHC (RBC) [Mass/Vol] 34.4 g/dL Normal 29.9-35.2 [facility] Comment on above: Performed By: #### B MP #### [facility] [address] [place] [address] Dr. Carrington Chandler MCV (RBC) [Entitic vol] 89.2 fL Normal 80.0-94.0 [facility] Comment on above: Performed By: #### B MP #### [facility] [address] [place] [address] [address] Carrington Chandler MONO # 0.6 103/ul Normal 0.3-0.8 [facility] Comment on above: Performed By: #### B MP #### [facility] [address] [place] [address] Dr. Carrington Chandler Monocytes/100 WBC (Bld) 11.8 % Normal 1.7-12.0 [facility] Comment on above: Performed By: #### B MP #### [facility] [address] [place] [address] Dr. Carrington Chandler NEUT # 2.6 103/ul Normal 1.4-6.5 [facility] Comment on above: Performed By: #### B MP #### [facility] [address] [place] [address] Dr. Carrington Chandler Neutrophils/100 WBC (Bld) 49.2 % Normal 43.0-75.0 [facility] Comment on above: Performed By: #### B MP #### [facility] [address] [place] [address] Dr. Carrington Chandler Platelet mean volume (Bld) [Entitic vol] 9.2 fL Critically low 9.5-13.5 [facility] Comment on above: Performed By: #### B MP #### [facility] [address] [place] [address] Dr. Carrington Chandler PLT 213 103/ul Normal 150-450 [facility] Comment on above: Performed By: #### B MP #### [facility] [address] [place] [address] Dr. Carrington Chandler RBC 4.27 106/ul Critically low 4.70-6.10 [facility] Comment on above: Performed By: #### B MP #### [facility] [address] [place] [address] Dr. Carrington Chandler WBC 5.4 103/ul Normal 4.0-11.0 [facility] Comment on above: Performed By: #### B MP #### [facility] [address] [place] [address] Dr. Carrington Chandler LIPASEon 10-10-2022 Lipase [Catalytic activity/Vol] 212.0 U/L Normal 73.0-393.0 [facility] Comment on above: Performed By: #### A MY, CMP, LIPA #### [facility] [address] [address] [address] Carrington Chandler PROF 14(COMP METB)on 023 Albumin [Mass/Vol] 3.9 g/dL Normal 3.4-5.0 [facility] Comment on above: Performed By: #### A MY, CMP, LIPA #### [facility] [address] [address] [address] Carrington Chandler Albumin/Globulin [Mass ratio] 1.2 {ratio} Normal [facility] Comment on above: Performed By: #### A MY, CMP, LIPA #### [facility] [address] [place] [address] Dr. Carrington Chandler ALP [Catalytic activity/Vol] 67 U/L Normal 46-116 [facility] Comment on above: Performed By: #### A MY, CMP, LIPA #### [facility] [address] [address] [address] Carrington Chandler ALT [Catalytic activity/Vol] 30 U/L Normal 16-63 [facility] Comment on above: Performed By: #### A MY, CMP, LIPA #### [facility] [address] [address] [address] Carrington Chandler Anion gap [Moles/Vol] 12.8 mmol/L Normal [facility] Comment on above: Performed By: #### A MY, CMP, LIPA #### [facility] [address] [address] [address] Carrington Chandler AST [Catalytic activity/Vol] 58 U/L Critically high 15-37 [facility] Comment on above: Performed By: #### A MY, CMP, LIPA #### [facility] [address] [address] [address] Carrington Chandler Bilirubin [Mass/Vol] 0.3 mg/dL Normal 0.2-1.0 [facility] Comment on above: Performed By: #### A MY, CMP, LIPA #### [facility] [address] [address] [address] Carrington Chandler Calcium [Mass/Vol] 8.9 mg/dL Normal 8.5-10.1 [facility] Comment on above: Performed By: #### A MY, CMP, LIPA #### [facility] [address] [address] [address] Carrington Chandler Chloride [Moles/Vol] 101 mmol/L Normal 98-107 [facility] Comment on above: Performed By: #### A MY, CMP, LIPA #### [facility] [address] [address] [address] Carrington Chandler CO2 [Moles/Vol] 26.0 mmol/L Normal 21.0-32.0 [facility] Comment on above: Performed By: #### A MY, CMP, LIPA #### [facility] [address] [place] [address] Dr. Carrington Chandler Creatinine [Mass/Vol] 0.98 mg/dL Normal 0.70-1.30 [facility] Comment on above: Performed By: #### A MY, CMP, LIPA #### [facility] [address] [place] [address] Dr. Carrington Chandler EGFR-AF CYMRAES >60 Normal >=60 [facility] Comment on above: Performed By: #### A MY, CMP, LIPA #### [facility] [address] [place] [address] Dr. Carrington Chandler EGFR-NON AF CYMRAES >60 Normal >=60 [facility] Comment on above: Performed By: #### A MY, CMP, LIPA #### [facility] [address] [address] [address] Carrington Chandler Globulin (S) [Mass/Vol] 3.2 g/dL Normal [facility] Comment on above: Performed By: #### A MY, CMP, LIPA #### [facility] [address] [place] [address] Dr. Carrington Chandler Glucose [Mass/Vol] 101 mg/dL Normal 74-106 [facility] Comment on above: Performed By: #### A MY, CMP, LIPA #### [facility] [address] [address] [address] Carrington Chandler Potassium [Moles/Vol] 3.8 mmol/L Normal 3.5-5.1 [facility] Comment on above: Performed By: #### A MY, CMP, LIPA #### [facility] [address] [place] [address] Dr. Carrington Chandler Protein [Mass/Vol] 7.1 g/dL Normal 6.4-8.2 [facility] Comment on above: Performed By: #### A MY, CMP, LIPA #### [facility] [address] [place] [address] Dr. Carrington Chandler Sodium [Moles/Vol] 136 mmol/L Normal 136-145 [facility] Comment on above: Performed By: #### A MY, CMP, LIPA #### [facility] [address] [address] [address] Carrington Chandler Urea nitrogen [Mass/Vol] 19.0 mg/dL Critically high 7.0-18.0 [facility] Comment on above: Performed By: #### A MY, CMP, LIPA #### [facility] [address] [place] [address] Dr. Carrington Chandler Urea nitrogen/Creatinine [Mass ratio] 19.4 mg/mg Normal [facility] Comment on above: Performed By: #### A MY, CMP, LIPA #### [facility] [address] [place] [address] Dr. Carrington Chandler PROTIMEon 10-10-2022 INR Coag (PPP) [Relative time] {INR} Normal [facility] Comment on above: Performed By: #### B MP #### [facility] [address] [place] [address] Dr. Carrington Chandler INR GUIDELINES SEE BELOW Normal [facility] Comment on above: Result Comment: LYNDON RED INR: 2.0 - 3.0 CONDITIONS NOT LISTED BELOW 2.5 - 3.5 FOR PROSTHETIC HEART VALVE REPLACEMENT 2.5 - 3.5 RECURRENT THROMBOSIS Performed By: #### B MP #### [facility] [address] [place], [place] [address] Dr. Carrington Chandler PT Coag (PPP) [Time] 9.7 s Normal 9.0-11.6 [facility] Comment on above: Performed By: #### B MP #### [facility] [address] [place], [place] [address] Dr. Carrington Chandler PTTon 10-10-2022 aPTT Coag (Bld) [Time] 29.5 s Normal 22.3-36.2 [facility] Comment on above: Performed By: #### B MP #### [facility] [id number] Carrington Chandler XR ABD FLAT UP_PA [...] by: XIOMARA SCHNEIDER Date: 2022-10-10 00:33 Normal [facility] XR knee RT 3Von 09-09-2022 XR knee RT 3V [facility] [employer] Other XR knee RT 3V [facility] [employer] Other XR knee RT 3V [address] [place] [address] [employer] Other XR knee RT 3[place] [address] [employer] Other XR knee RT 3V [facility] [employer] Other XR knee RT 3V Signed [employer] Other XR knee RT 3V Patient: Hector Gaspar SR MR#: [id number] [employer] Other XR knee RT 3V 187 [employer] Other XR knee RT 3V : 1960 Acct:[id number] [employer] Other XR knee RT 3V Age/Sex: 62 / M ADM Date: 09/09/22 [employer] Other XR knee RT 3V Loc: [facility] Room: Type : [facility] [employer] Other XR knee RT 3V Attending Dr: Wagner Marrufo DO [employer] Other XR knee RT 3V Copies to: Wagner Marrufo, [employer] Other XR knee RT 3V Ordering Provider: Judy Marrufo DO [employer] Other XR knee RT 3V Date of Service: 09/09/22 [employer] Other XR knee RT 3V XR/XR knee RT 3V - NOT FOR ER USE: Acute pain of right knee [employer] Other XR knee RT 3V RIGHT KNEE - 3 views N [employer] Other XR knee RT 3V CLINICAL HISTORY: Generalized right knee pain for 2 weeks. [employer] Other XR knee RT 3V COMPARISON: None [employer] Other XR knee RT 3V FINDINGS: [employer] Other XR knee RT 3V Small knee joint effusion. Mild degenerative changes without acute bony process. Presumed loose [employer] Other XR knee RT 3V body seen anteriorly within the joint space. [employer] Other XR knee RT 3V X R/XR knee RT 3V - NOT FOR ER USE [employer] Other XR knee RT 3V IMPRESSION: drumbi Other XR knee RT 3V MILD DEGENERATIVE CH ANGES WITHOUT ACUTE BONY PROCESS. [employer] Other XR knee RT 3V Impression dictated by: Parrish Layton Jr., D.OEhsan09/09/2022 3:40 PM [employer] Other XR knee RT 3V Dictation Location: [place] [address] [employer] Other XR knee RT 3V Transcribed By: PWS 09/09/22 154 [employer] Other XR knee RT 3V Dictated By: Parrish Layton Jr, DO 09/09/22 153 [employer] Other XR knee RT 3V Signed By: [employer] Other XR knee RT 3V 09/09/22 [facility] [employer] Other CBC AUTO DIFFon 09-08-2022 BASO # 0.0 103/ul Normal 0.0-0.1 [facility] Comment on above: Performed By: #### C BC #### [facility] [address] [place] [address] Dr. Carrington Chandler Basophils/100 WBC (Bld) 0.4 % Normal 0.2-2.0 [facility] Comment on above: Performed By: #### C BC #### [facility] [address] [place] [address] Dr. Carrington Chandler EO # 0.3 103/ul Normal 0.0-0.7 [facility] Comment on above: Performed By: #### C BC #### [facility] [address] [place] [address] Dr. Carrington Chandler Eosinophils/100 WBC (Bld) 4.9 % Normal 0.9-7.0 [facility] Comment on above: Performed By: #### C BC #### [facility] [address] [place] [address] Dr. Carrington Chandler Erythrocyte distribution width (RBC) [Ratio] 14.0 % Normal 11.0-15.0 [facility] Comment on above: Performed By: #### C BC #### [facility] [address] [place] [address] Dr. Carrington Chandler Hematocrit (Bld) [Volume fraction] 36.9 % Critically low 42.0-54.0 [facility] Comment on above: Performed By: #### C BC #### [facility] [address] [place] [address] Dr. Carrington Chandler Hemoglobin (Bld) [Mass/Vol] 12.2 g/dL Critically low 14.0-18.0 [facility] Comment on above: Performed By: #### C BC #### [facility] [address] [place] [address] Dr. Carrington Chandler IG # 0.01 10e3/ul Normal 0.00-0.03 [facility] Comment on above: Performed By: #### C BC #### [facility] [address] [place] [address] Dr. Carrington Chandler IG % 0.2 % Normal 0.0-0.5 [facility] Comment on above: Performed By: #### C BC #### [facility] [address] [place] [address] Dr. Carrington Chandler LYMPH # 1.7 103/ul Normal 1.2-3.8 [facility] Comment on above: Performed By: #### C BC #### [facility] [address] [place] [address] Dr. Carrington Chandler Lymphocytes/100 WBC (Bld) 30.6 % Normal 20.5-60.0 [facility] Comment on above: Performed By: #### C BC #### [facility] [address] [place] [address] Dr. Carrington Chandler MANUAL DIFF REQ NO Normal [facility] Comment on above: Performed By: #### C BC #### [facility] [address] [place] [address] Dr. Carrington Chandler MCH (RBC) [Entitic mass] 30.3 pg Normal 25.9-34.0 [facility] Comment on above: Performed By: #### C BC #### [facility] [address] [place] [address] Dr. Carrington Chandler MCHC (RBC) [Mass/Vol] 33.1 g/dL Normal 29.9-35.2 [facility] Comment on above: Performed By: #### C BC #### [facility] [address] [place] [address] Dr. Carrington Chandler MCV (RBC) [Entitic vol] 91.6 fL Normal 80.0-94.0 [facility] Comment on above: Performed By: #### C BC #### [facility] [address] [place] [address] Dr. Carrington Chandler MONO # 0.6 103/ul Normal 0.3-0.8 [facility] Comment on above: Performed By: #### C BC #### [facility] [address] [place] [address] Dr. Carrington Chandler Monocytes/100 WBC (Bld) 9.9 % Normal 1.7-12.0 [facility] Comment on above: Performed By: #### C BC #### [facility] [address] [place] [address] Dr. Carrington Chandler NEUT # 3.0 103/ul Normal 1.4-6.5 [facility] Comment on above: Performed By: #### C BC #### [facility] [address] [place] [address] Dr. Carrington Chandler Neutrophils/100 WBC (Bld) 54.0 % Normal 43.0-75.0 [facility] Comment on above: Performed By: #### C BC #### [facility] [address] [place] [address] Dr. Carrington Chandler Platelet mean volume (Bld) [Entitic vol] 8.9 fL Critically low 9.5-13.5 [facility] Comment on above: Performed By: #### C BC #### [facility] [address] [place] [address] Dr. Carrington Chandler PLT 189 103/ul Normal 150-450 [facility] Comment on above: Performed By: #### C BC #### [facility] [address] [address] [address] Carrington Chandler RBC 4.03 106/ul Critically low 4.70-6.10 [facility] Comment on above: Performed By: #### C BC #### [facility] [address] [place] [address] Dr. Carrington Chandler WBC 5.5 103/ul Normal 4.0-11.0 [facility] Comment on above: Performed By: #### C BC #### [facility] [address] [place] [address] Dr. Carrington Chandler CRPon 09-08-2022 CRP 0.5 mg/dL Normal <=1.0 [facility] Comment on above: Performed By: #### A MY, CMP, LIPA #### [facility] [address] [place] [address] Dr. Carrington Chandler PROF CHEM 8 (BAS METB)on Anion gap [Moles/Vol] 12.7 mmol/L Normal [facility] Comment on above: Performed By: #### A MY, CMP, LIPA #### [facility] [address] [place] [address] Dr. Carrington Chandler Calcium [Mass/Vol] 8.6 mg/dL Normal 8.5-10.1 [facility] Comment on above: Performed By: #### A MY, CMP, LIPA #### [facility] [address] [place] [address] Dr. Carrington Chandler Chloride [Moles/Vol] 102 mmol/L Normal 98-107 [facility] Comment on above: Performed By: #### A MY, CMP, LIPA #### [facility] [address] [address] [address] Carrington Chandler CO2 [Moles/Vol] 27.2 mmol/L Normal 21.0-32.0 [facility] Comment on above: Performed By: #### A MY, CMP, LIPA #### [facility] [address] [address] [address] Carrington Chandler Creatinine [Mass/Vol] 1.11 mg/dL Normal 0.70-1.30 [facility] Comment on above: Performed By: #### A MY, CMP, LIPA #### [facility] [address] [address] [address] Carrington Chandler EGFR-AF CYMRAES >60 Normal >=60 [facility] Comment on above: Performed By: #### A MY, CMP, LIPA #### [facility] [address] [address] [address] Carrington Chandler EGFR-NON AF CYMRAES >60 Normal >=60 [facility] Comment on above: Performed By: #### A MY, CMP, LIPA #### [facility] [address] [address] [address] Carrington Chandler Glucose [Mass/Vol] 132 mg/dL Critically high 74-106 [facility] Comment on above: Performed By: #### A MY, CMP, LIPA #### [facility] [address] [address] [address] Carrington Chandler Potassium [Moles/Vol] 3.9 mmol/L Normal 3.5-5.1 [facility] Comment on above: Performed By: #### A MY, CMP, LIPA #### [facility] [address] [address] [address] Carrington Chandler Sodium [Moles/Vol] 138 mmol/L Normal 136-145 [facility] Comment on above: Performed By: #### A MY, CMP, LIPA #### [facility] [address] [address] [address] Carrington Chandler Urea nitrogen [Mass/Vol] 18.0 mg/dL Normal 7.0-18.0 [facility] Comment on above: Performed By: #### A MY, CMP, LIPA #### [facility] [address] [address] [address] Carrington Chandler Urea nitrogen/Creatinine [Mass ratio] 16.2 mg/mg Normal [facility] Comment on above: Performed By: #### A MY, CMP, LIPA #### [facility] [address] [address] [address] Carrington Chandler US C[place] DOP LEG [...] CYNTHIA VASQUEZ Date: 2022-09-07 22:52 Normal [facility] HEMOGLOBINon 08-10-2022 Hemoglobin (Bld) [Mass/Vol] 13.3 g/dL Critically low 14.0-18.0 [facility] Comment on above: Performed By: #### B MP #### [facility] [address] [address] [address] Carrington Chandler CBC W MANUAL DIFFon 07-11-20 22 ATYPICAL LYMPH # 0.65 103/ul Normal [facility] Comment on above: Performed By: #### A MY, CMP, LIPA #### [facility] [address] [place], [place] [address] Dr. Carrintgon Chandler ATYPICAL LYMPH % 11 % Normal [facility] Comment on above: Performed By: #### A MY, CMP, LIPA #### [facility] [address] [address] [address] Carrington Chandler BAND # 0.0 103/ul Normal 0.0-0.3 [facility] Comment on above: Performed By: #### A MY, CMP, LIPA #### [facility] [address] [address] [address] Carrington Chandler BAND % 0 % Normal 0-5 [facility] Comment on above: Performed By: #### A MY, CMP, LIPA #### [facility] [address] [place] [address] Dr. Carrington Chandler BASOM # 0.00 103/ul Normal 0.00-0.10 [facility] Comment on above: Performed By: #### A MY, CMP, LIPA #### [facility] [address] [place] [address] Dr. Carrington Chandler BASOM % 0.0 % Critically low 0.2-2.0 [facility] Comment on above: Performed By: #### A MY, CMP, LIPA #### [facility] [address] [place] [address] Dr. Carrington Chandler BLAST # Normal [facility] Comment on above: Performed By: #### A MY, CMP, LIPA #### [facility] [address] [place] [address] Dr. Carrington Chandler BLAST % Normal [facility] Comment on above: Performed By: #### A MY, CMP, LIPA #### [facility] [address] [place] [address] Dr. Carrington Chandler CORRECTED WBC Normal 4.0-11.0 [facility] Comment on above: Performed By: #### A MY, CMP, LIPA #### [facility] [address] [place] [address] Dr. Carrington Chandler EOS # 0.00 103/ul Normal 0.00-0.70 [facility] Comment on above: Performed By: #### A MY, CMP, LIPA #### [facility] [address] [place] [address] Dr. Carrington Chandler EOS% 0.0 % Critically low 0.9-7.0 [facility] Comment on above: Performed By: #### A MY, CMP, LIPA #### [facility] [address] [address] [address] Carrington Chandler HCT 34.7 % Critically low 42.0-54.0 [facility] Comment on above: Performed By: #### A MY, CMP, LIPA #### [facility] [address] [address] [address] Carrington Chandler HGB 11.7 g/dl Critically low 14.0-18.0 [facility] Comment on above: Performed By: #### A MY, CMP, LIPA #### [facility] [address] [place] [address] Dr. Carrington Chandler LYMPHM # 0.12 103/ul Critically low 1.20-3.80 [facility] Comment on above: Performed By: #### A MY, CMP, LIPA #### [facility] [address] [place] [address] Dr. Carrington Chandler LYMPHM% 2.0 % Critically low 20.5-60.0 [facility] Comment on above: Performed By: #### A MY, CMP, LIPA #### [facility] [address] [place] [address] Dr. Carrington Chandler MCH 29.9 pg Normal 25.9-34.0 [facility] Comment on above: Performed By: #### A MY, CMP, LIPA #### [facility] [address] [place] [address] Dr. Carrington Chandler MCHC 33.7 g/dl Normal 29.9-35.2 [facility] Comment on above: Performed By: #### A MY, CMP, LIPA #### [facility] [address] [place] [address] Dr. Carrington Chandler MCV 88.7 fL Normal 80.0-94.0 [facility] Comment on above: Performed By: #### A MY, CMP, LIPA #### [facility] [address] [address] [address] Carrington Chandler METAMYELOCYTE # Normal [facility] Comment on above: Performed By: #### A MY, CMP, LIPA #### [facility] [address] [address] [address] Carrington Chandler METAMYELOCYTE % Normal [facility] Comment on above: Performed By: #### A MY, CMP, LIPA #### [facility] [address] [place] [address] Dr. Carrington Chandler MONOM# 0.00 103/ul Critically low 0.30-0.80 [facility] Comment on above: Performed By: #### A MY, CMP, LIPA #### [facility] [address] [place] [address] Dr. Carrington Chandler MONOM% 0.0 % Critically low 1.7-12.[address] [facility] Comment on above: Performed By: #### A MY, CMP, LIPA #### [facility] [address] [place] [address] Dr. Carrington Chandler MPV 9.4 fL Critically low 9.5-13.[address] [facility] Comment on above: Performed By: #### A MY, CMP, LIPA #### [facility] [address] [place] [address] Dr. Carrington Chandler MYELOCYTE # Normal [facility] Comment on above: Performed By: #### A MY, CMP, LIPA #### [facility] [address] [place] [address] Dr. Carrington Chandler MYELOCYTE % Normal [facility] Comment on above: Performed By: #### A MY, CMP, LIPA #### [facility] [address] [place] [address] Dr. Carrington Chandler NRBC Normal [facility] Comment on above: Performed By: #### A MY, CMP, LIPA #### [facility] [address] [place] [address] Dr. Carrington Chandler PLT 160 103/ul Normal 150-450 [facility] Comment on above: Performed By: #### A MY, CMP, LIPA #### [facility] [address] [address] [address] Carrington Chandler RBC 3.91 106/ul Critically low 4.70-6.10 [facility] Comment on above: Performed By: #### A MY, CMP, LIPA #### [facility] [address] [address] [address] Carrington Chandler RDW 12.4 % Normal 11.0-15.0 [facility] Comment on above: Performed By: #### A MY, CMP, LIPA #### [facility] [address] [place] [address] Dr. Carrington Chandler SEG # 5.13 103/ul Normal 1.40-6.50 [facility] Comment on above: Performed By: #### A MY, CMP, LIPA #### [facility] [address] [place] [address] Dr. Carrington Chandler SEG % 87.0 % Critically high 43.0-75.0 [facility] Comment on above: Performed By: #### A MY, CMP, LIPA #### [facility] [address] [place] [address] Dr. Carrington Chandler WBC 5.9 103/ul Normal 4.0-11.0 [facility] Comment on above: Performed By: #### A MY, CMP, LIPA #### [facility] [address] [place] [address] Dr. Carrington Chandler PROF 14(COMP METB)on 022 Albumin [Mass/Vol] 3.0 g/dL Critically low 3.4-5.0 [facility] Comment on above: Performed By: #### C MP #### [facility] [address] [place] [address] Dr. Carrington Chandler Albumin/Globulin [Mass ratio] 0.9 {ratio} Normal [facility] Comment on above: Performed By: #### C MP #### [facility] [address] [place] [address] Dr. Carrington Chandler ALP [Catalytic activity/Vol] 56 U/L Normal 46-116 [facility] Comment on above: Performed By: #### C MP #### [facility] [address] [address] [address] Carrington Chandler ALT [Catalytic activity/Vol] 21 U/L Normal 16-63 [facility] Comment on above: Performed By: #### C MP #### [facility] [address] [address] [address] Carrington Chandler Anion gap [Moles/Vol] 12.9 mmol/L Normal [facility] Comment on above: Performed By: #### C MP #### [facility] [address] [address] [address] Carrington Chandler AST [Catalytic activity/Vol] 15 U/L Normal 15-37 [facility] Comment on above: Performed By: #### C MP #### [facility] [address] [place] [address] Dr. Carrington Chandler Bilirubin [Mass/Vol] 0.2 mg/dL Normal 0.2-1.0 [facility] Comment on above: Performed By: #### C MP #### [facility] [address] [address] [address] Carrington Chandler Calcium [Mass/Vol] 8.1 mg/dL Critically low 8.5-10.1 [facility] Comment on above: Performed By: #### C MP #### [facility] [address] [place] [address] Dr. Carrington Chandler Chloride [Moles/Vol] 104 mmol/L Normal 98-107 [facility] Comment on above: Performed By: #### C MP #### [facility] [address] [address] [address] Carrington Chandler CO2 [Moles/Vol] 24.6 mmol/L Normal 21.0-32.0 [facility] Comment on above: Performed By: #### C MP #### [facility] [address] [address] [address] Carrington Chandler Creatinine [Mass/Vol] 0.88 mg/dL Normal 0.70-1.30 [facility] Comment on above: Performed By: #### C MP #### [facility] [address] [address] [address] Carrington Chandler EGFR-AF CYMRAES >60 Normal >=60 [facility] Comment on above: Performed By: #### C MP #### [facility] [address] [address] [address] Carrington Chandler EGFR-NON AF CYMRAES >60 Normal >=60 [facility] Comment on above: Performed By: #### C MP #### [facility] [address] [address] [address] Carrington Chandler Globulin (S) [Mass/Vol] 3.3 g/dL Normal [facility] Comment on above: Performed By: #### C MP #### [facility] [address] [address] [address] Carrington Chandler Glucose [Mass/Vol] 174 mg/dL Critically high 74-106 [facility] Comment on above: Performed By: #### C MP #### [facility] [address] [address] [address] Carrington Chandler Potassium [Moles/Vol] 3.5 mmol/L Normal 3.5-5.1 [facility] Comment on above: Performed By: #### C MP #### [facility] [address] [place] [address] Dr. Carrington Chandler Protein [Mass/Vol] 6.3 g/dL Critically low 6.4-8.2 [facility] Comment on above: Performed By: #### C MP #### [facility] [address] [address] [address] Carrington Chandler Sodium [Moles/Vol] 138 mmol/L Normal 136-145 [facility] Comment on above: Performed By: #### C MP #### [facility] [address] [address] [address] Carrington Chandler Urea nitrogen [Mass/Vol] 17.0 mg/dL Normal 7.0-18.0 [facility] Comment on above: Performed By: #### C MP #### [facility] [address] [address] [address] Carrington Chandler Urea nitrogen/Creatinine [Mass ratio] 19.3 mg/mg Normal [facility] Comment on above: Performed By: #### C MP #### [facility] [address] [place] [address] Dr. Carrington Chandler CBC AUTO DIFFon 07-10-2022 BASO # 0.0 103/ul Normal 0.0-0.1 [facility] Comment on above: Performed By: #### B MP #### [facility] [address] [place] [address] Dr. Carrington Chandler Basophils/100 WBC (Bld) 0.2 % Normal 0.2-2.0 [facility] Comment on above: Performed By: #### B MP #### [facility] [address] [place] [address] Dr. Carrington Chandler EO # 0.1 103/ul Normal 0.0-0.7 [facility] Comment on above: Performed By: #### B MP #### [facility] [address] [place] [address] Dr. Carrington Chandler Eosinophils/100 WBC (Bld) 2.3 % Normal 0.9-7.0 [facility] Comment on above: Performed By: #### B MP #### [facility] [address] [place] [address] Dr. Carrington Chandler Erythrocyte distribution width (RBC) [Ratio] 12.5 % Normal 11.0-15.0 [facility] Comment on above: Performed By: #### B MP #### [facility] [address] [place] [address] Dr. Carrington Chandler Hematocrit (Bld) [Volume fraction] 36.8 % Critically low 42.0-54.0 [facility] Comment on above: Performed By: #### B MP #### [facility] [address] [place] [address] Dr. Carrington Chandler Hemoglobin (Bld) [Mass/Vol] 12.3 g/dL Critically low 14.0-18.0 [facility] Comment on above: Performed By: #### B MP #### [facility] [address] [place] [address] Dr. Carrington Chandler IG # 0.01 10e3/ul Normal 0.00-0.03 [facility] Comment on above: Performed By: #### B MP #### [facility] [address] [place] [address] Dr. Carrington Chandler IG % 0.2 % Normal 0.0-0.5 [facility] Comment on above: Performed By: #### B MP #### [facility] [address] [place] [address] Dr. Carrington Chandler LYMPH # 1.5 103/ul Normal 1.2-3.8 [facility] Comment on above: Performed By: #### B MP #### [facility] [address] [place] [address] Dr. Carrington Chandler Lymphocytes/100 WBC (Bld) 34.7 % Normal 20.5-60.0 [facility] Comment on above: Performed By: #### B MP #### [facility] [address] [place] [address] Dr. Carrington Chandler MANUAL DIFF REQ NO Normal [facility] Comment on above: Performed By: #### B MP #### [facility] [address] [place] [address] Dr. Carrington Chandler MCH (RBC) [Entitic mass] 29.8 pg Normal 25.9-34.0 [facility] Comment on above: Performed By: #### B MP #### [facility] [address] [place] [address] Dr. Carrington Chandler MCHC (RBC) [Mass/Vol] 33.4 g/dL Normal 29.9-35.2 [facility] Comment on above: Performed By: #### B MP #### [facility] [address] [place] [address] Dr. Carrington Chandler MCV (RBC) [Entitic vol] 89.1 fL Normal 80.0-94.0 [facility] Comment on above: Performed By: #### B MP #### [facility] [address] [place] [address] Dr. Carrington Chandler MONO # 0.5 103/ul Normal 0.3-0.8 [facility] Comment on above: Performed By: #### B MP #### [facility] [address] [place] [address] Dr. Carrington Chandler Monocytes/100 WBC (Bld) 11.0 % Normal 1.7-12.0 [facility] Comment on above: Performed By: #### B MP #### [facility] [address] [place] [address] Dr. Carrington Chandler NEUT # 2.2 103/ul Normal 1.4-6.5 [facility] Comment on above: Performed By: #### B MP #### [facility] [address] [place] [address] Dr. Carrington Chandler Neutrophils/100 WBC (Bld) 51.6 % Normal 43.0-75.0 [facility] Comment on above: Performed By: #### B MP #### [facility] [address] [place] [address] Dr. Carrington Chandler Platelet mean volume (Bld) [Entitic vol] 9.0 fL Critically low 9.5-13.5 [facility] Comment on above: Performed By: #### B MP #### [facility] [address] [place] [address] Dr. Carrington Chandler PLT 147 103/ul Critically low 150-450 [facility] Comment on above: Performed By: #### B MP #### [facility] [address] [place] [address] Dr. Carrington Chandler RBC 4.13 106/ul Critically low 4.70-6.10 [facility] Comment on above: Performed By: #### B MP #### [facility] [address] [place] [address] Dr. Carrington Chandler WBC 4.4 103/ul Normal 4.0-11.0 [facility] Comment on above: Performed By: #### B MP #### [facility] [address] [place] [address] Dr. Carrington Chandler CULTURE SPUTUMon 07-10-2022 CULTURE SPUTUM Culture Observations : NORMAL RESPIRATORY SANDY. Normal [facility] Comment on above: Performed By: #### C MP #### [facility] [address] [place] [address] Dr. Carrington Chandler MAGNESIUMon 07-10-2022 Magnesium [Mass/Vol] 2.0 mg/dL Normal 1.8-2.4 [facility] Comment on above: Performed By: #### C MP #### [facility] [address] [place] [address] Dr. Carrington Chandler PROF 14(COMP METB)on 022 Albumin [Mass/Vol] 2.8 g/dL Critically low 3.4-5.0 [facility] Comment on above: Performed By: #### B MP #### [facility] [address] [place] [address] Dr. Carrington Chandler Albumin/Globulin [Mass ratio] 0.8 {ratio} Normal [facility] Comment on above: Performed By: #### B MP #### [facility] [address] [place] [address] Dr. Carrington Chandler ALP [Catalytic activity/Vol] 55 U/L Normal 46-116 [facility] Comment on above: Performed By: #### B MP #### [facility] [address] [place] [address] Dr. Carrington Chandler ALT [Catalytic activity/Vol] 22 U/L Normal 16-63 [facility] Comment on above: Performed By: #### B MP #### [facility] [address] [place] [address] Dr. Carrington Chandler Anion gap [Moles/Vol] 10.3 mmol/L Normal [facility] Comment on above: Performed By: #### B MP #### [facility] [address] [place] [address] Dr. Carrington Chandler AST [Catalytic activity/Vol] 22 U/L Normal 15-37 [facility] Comment on above: Performed By: #### B MP #### [facility] [address] [place] [address] Dr. Carrington Chandler Bilirubin [Mass/Vol] 0.2 mg/dL Normal 0.2-1.0 [facility] Comment on above: Performed By: #### B MP #### [facility] [address] [address] [address] Carrington Chandler Calcium [Mass/Vol] 8.0 mg/dL Critically low 8.5-10.1 [facility] Comment on above: Performed By: #### B MP #### [facility] [address] [address] [address] Carrington Chandler Chloride [Moles/Vol] 105 mmol/L Normal 98-107 [facility] Comment on above: Performed By: #### B MP #### [facility] [address] [place] [address] Dr. Carrington Chandler CO2 [Moles/Vol] 28.1 mmol/L Normal 21.0-32.0 [facility] Comment on above: Performed By: #### B MP #### [facility] [address] [place] [address] Dr. Carrington Chandler Creatinine [Mass/Vol] 0.89 mg/dL Normal 0.70-1.30 [facility] Comment on above: Performed By: #### B MP #### [facility] [address] [place] [address] Dr. Carrington Chandler EGFR-AF CYMRAES >60 Normal >=60 [facility] Comment on above: Performed By: #### B MP #### [facility] [address] [place] [address] Dr. Carrington Chandler EGFR-NON AF CYMRAES >60 Normal >=60 [facility] Comment on above: Performed By: #### B MP #### [facility] [address] [place] [address] Dr. Carrington Chandler Globulin (S) [Mass/Vol] 3.7 g/dL Normal [facility] Comment on above: Performed By: #### B MP #### [facility] [address] [place] [address] Dr. Carrington Chandler Glucose [Mass/Vol] 124 mg/dL Critically high 74-106 [facility] Comment on above: Performed By: #### B MP #### [facility] [address] [address] [address] Carrington Chandler Potassium [Moles/Vol] 3.4 mmol/L Critically low 3.5-5.1 [facility] Comment on above: Performed By: #### B MP #### [facility] [address] [address] [address] Carrington Chandler Protein [Mass/Vol] 6.5 g/dL Normal 6.4-8.2 [facility] Comment on above: Performed By: #### B MP #### [facility] [address] [address] [address] Carrington Chandler Sodium [Moles/Vol] 140 mmol/L Normal 136-145 [facility] Comment on above: Performed By: #### B MP #### [facility] [address] [place] [address] Dr. Carrington Chandler Urea nitrogen [Mass/Vol] 15.0 mg/dL Normal 7.0-18.0 [facility] Comment on above: Performed By: #### B MP #### [facility] [address] [place] [address] Dr. Carrington Chandler Urea nitrogen/Creatinine [Mass ratio] 16.9 mg/mg Normal [facility] Comment on above: Performed By: #### B MP #### [facility] [address] [place] [address] Dr. Carrington Chandler CBC AUTO DIFFon 07-09-2022 BASO # 0.0 103/ul Normal 0.0-0.1 [facility] Comment on above: Performed By: #### A MY, CMP, LIPA #### [facility] [address] [address] [address] Carrington Chandler Basophils/100 WBC (Bld) 0.2 % Normal 0.2-2.0 [facility] Comment on above: Performed By: #### A MY, CMP, LIPA #### [facility] [address] [place] [address] Dr. Carrington Chandler EO # 0.1 103/ul Normal 0.0-0.7 [facility] Comment on above: Performed By: #### A MY, CMP, LIPA #### [facility] [address] [place] [address] Dr. Carrington Chandler Eosinophils/100 WBC (Bld) 1.9 % Normal 0.9-7.0 [facility] Comment on above: Performed By: #### A MY, CMP, LIPA #### [facility] [address] [place] [address] Dr. Carrington Chandler Erythrocyte distribution width (RBC) [Ratio] 12.6 % Normal 11.0-15.0 [facility] Comment on above: Performed By: #### A MY, CMP, LIPA #### [facility] [address] [place] [address] Dr. Carrington Chandler Hematocrit (Bld) [Volume fraction] 38.8 % Critically low 42.0-54.0 [facility] Comment on above: Performed By: #### A MY, CMP, LIPA #### [facility] [address] [place] [address] Dr. Carrington Chandler Hemoglobin (Bld) [Mass/Vol] 12.9 g/dL Critically low 14.0-18.0 [facility] Comment on above: Performed By: #### A MY, CMP, LIPA #### [facility] [address] [place] [address] Dr. Carrington Chandler IG # 0.01 10e3/ul Normal 0.00-0.03 [facility] Comment on above: Performed By: #### A MY, CMP, LIPA #### [facility] [address] [place] [address] Dr. Carrington Chandler IG % 0.2 % Normal 0.0-0.5 [facility] Comment on above: Performed By: #### A MY, CMP, LIPA #### [facility] [address] [place] [address] Dr. Carrington Chandler LYMPH # 1.7 103/ul Normal 1.2-3.8 [facility] Comment on above: Performed By: #### A MY, CMP, LIPA #### [facility] [address] [place], [place] [id number] Dr. Carrington Chandler Lymphocytes/100 WBC (Bld) 34.7 % Normal 20.5-60.0 [facility] Comment on above: Performed By: #### A MY, CMP, LIPA #### [facility] [address] [place] [address] Dr. Carrington Chandler MANUAL DIFF REQ NO Normal [facility] Comment on above: Performed By: #### A MY, CMP, LIPA #### [facility] [address] [place] [address] Dr. Carrington Chandler MCH (RBC) [Entitic mass] 29.9 pg Normal 25.9-34.0 [facility] Comment on above: Performed By: #### A MY, CMP, LIPA #### [facility] [address] [place] [address] Dr. Carrington Chandler MCHC (RBC) [Mass/Vol] 33.2 g/dL Normal 29.9-35.2 [facility] Comment on above: Performed By: #### A MY, CMP, LIPA #### [facility] [address] [place] [address] Dr. Carrington Chandler MCV (RBC) [Entitic vol] 90.0 fL Normal 80.0-94.0 [facility] Comment on above: Performed By: #### A MY, CMP, LIPA #### [facility] [address] [place] [address] Dr. Carrington Chandler MONO # 0.5 103/ul Normal 0.3-0.8 [facility] Comment on above: Performed By: #### A MY, CMP, LIPA #### [facility] [address] [place] [address] Dr. Carrington Chandler Monocytes/100 WBC (Bld) 10.4 % Normal 1.7-12.0 [facility] Comment on above: Performed By: #### A MY, CMP, LIPA #### [facility] [address] [place] [address] Dr. Carrington Chandler NEUT # 2.5 103/ul Normal 1.4-6.5 [facility] Comment on above: Performed By: #### A MY, CMP, LIPA #### [facility] [address] [place] [address] Dr. Carrington Chandler Neutrophils/100 WBC (Bld) 52.6 % Normal 43.0-75.0 [facility] Comment on above: Performed By: #### A MY, CMP, LIPA #### [facility] [address] [place] [address] Dr. Carrington Chandler Platelet mean volume (Bld) [Entitic vol] 9.0 fL Critically low 9.5-13.5 [facility] Comment on above: Performed By: #### A MY, CMP, LIPA #### [facility] [address] [place] [address] Dr. Carrington Chandler PLT 155 103/ul Normal 150-450 [facility] Comment on above: Performed By: #### A MY, CMP, LIPA #### [facility] [address] [place] [address] Dr. Carrington Chandler RBC 4.31 106/ul Critically low 4.70-6.10 [facility] Comment on above: Performed By: #### A MY, CMP, LIPA #### [facility] [address] [place] [address] Dr. Carrington Chandler WBC 4.8 103/ul Normal 4.0-11.0 [facility] Comment on above: Performed By: #### A MY, CMP, LIPA #### [facility] [address] [place] [address] Dr. Carrington Chandler Covid-19 PCR ([facility])on 06-25 SARS-CoV-2 (COVID-19) RNA CHARLIE+probe Ql (Unsp spec) Not detected Normal NOT DETECTED [facility] Comment on above: Result Comment: [...] for this test is supported by the Emergency Veterinarian of Health and Human Service's declaration that [...] used). Performed By: #### C MP #### [facility] [address] [place] [address] Dr. Carrington Chandler ER URINE PROFILEon 2 Bilirubin Ql (U) Negative Normal NEGATIVE [facility] Comment on above: Performed By: #### C MP #### [facility] [address] [place] [address] Dr. Carrington Chandler Clarity (U) CLEAR Normal CLEAR [facility] Comment on above: Performed By: #### C MP #### [facility] [address] [place] [address] Dr. Carrington Chanlder Color (U) LT. YELLOW Normal YELLOW [facility] Comment on above: Performed By: #### C MP #### [facility] [address] [place] [address] Dr. Carrington MELENDREZ A micrscopic examina tion will be performed if indicated. Normal [facility] Comment on above: Performed By: #### C MP #### [facility] [address] [place] [address] Dr. Carrington Chandler Glucose Ql (U) Negative Normal NEGATIVE [facility] Comment on above: Performed By: #### C MP #### [facility] [address] [place] [address] Dr. Carrington Chandler Hemoglobin Ql (U) Negative Normal NEGATIVE [facility] Comment on above: Performed By: #### C MP #### [facility] [address] [place] [address] Dr. Carrington Chandler Ketones Ql (U) Negative Normal NEGATIVE [facility] Comment on above: Performed By: #### C MP #### [facility] [address] [address] [address] Carrington Chandler LEUKOCYTES Negative Normal NEGATIVE [facility] Comment on above: Performed By: #### C MP #### [facility] [address] [place] [address] Dr. Carrington Chandler Nitrite Ql (U) Negative Normal NEGATIVE [facility] Comment on above: Performed By: #### C MP #### [facility] [address] [place] [address] Dr. Carrington Chandler pH (U) 6.0 [pH] Normal 5-9 [facility] Comment on above: Performed By: #### C MP #### [facility] [address] [place] [address] Dr. Carrington Chandler SPEC GRAVITY 1.010 Normal 1.005-<=1. 025 [facility] Comment on above: Performed By: #### C MP #### [facility] [address] [place] [address] Dr. Carrington Chandler UA PROTEIN Negative Normal NEGATIVE/ TRACE [facility] Comment on above: Performed By: #### C MP #### [facility] [address] [place] [address] Dr. Carrington Chandler UR MICRO IND NOT INDICATED Normal [facility] Comment on above: Performed By: #### C MP #### [facility] [address] [place] [address] Dr. Carrington Chandler Urobilinogen Qn (U) 0.2 {Lars'U}/dL Normal 0.2 - 1. 0 [facility] Comment on above: Performed By: #### C MP #### [facility] [address] [place] [address] Dr. Carrington Chandler PROF CHEM 8 (BAS METB)on Anion gap [Moles/Vol] 6.6 mmol/L Normal [facility] Comment on above: Performed By: #### B MP #### [facility] [address] [place] [address] Dr. Carrington Chandler Calcium [Mass/Vol] 8.2 mg/dL Critically low 8.5-10.1 [facility] Comment on above: Performed By: #### B MP #### [facility] [address] [address] [address] Carrington Chandler Chloride [Moles/Vol] 102 mmol/L Normal 98-107 [facility] Comment on above: Performed By: #### B MP #### [facility] [address] [address] [address] Carrington Chandler CO2 [Moles/Vol] 31.2 mmol/L Normal 21.0-32.0 [facility] Comment on above: Performed By: #### B MP #### [facility] [address] [address] [address] Carrington Chandler Creatinine [Mass/Vol] 0.90 mg/dL Normal 0.70-1.30 [facility] Comment on above: Performed By: #### B MP #### [facility] [address] [place] [address] Dr. Carrington Chandler EGFR-AF CYMRAES >60 Normal >=60 [facility] Comment on above: Performed By: #### B MP #### [facility] [address] [address] [address] Carrington Chandler EGFR-NON AF CYMRAES >60 Normal >=60 [facility] Comment on above: Performed By: #### B MP #### [facility] [address] [place] [address] Dr. Carrington Chandler Glucose [Mass/Vol] 100 mg/dL Normal 74-106 [facility] Comment on above: Performed By: #### B MP #### [facility] [address] [address] [address] Carrington Chandler Potassium [Moles/Vol] 3.8 mmol/L Normal 3.5-5.1 [facility] Comment on above: Performed By: #### B MP #### [facility] [address] [address] [address] Carrington Chandler Sodium [Moles/Vol] 136 mmol/L Normal 136-145 [facility] Comment on above: Performed By: #### B MP #### [facility] [address] [address] [address] Carrington Chandler Urea nitrogen [Mass/Vol] 16.0 mg/dL Normal 7.0-18.0 [facility] Comment on above: Performed By: #### B MP #### [facility] [address] [place] [address] Dr. Carrington Chandler Urea nitrogen/Creatinine [Mass ratio] 17.8 mg/mg Normal [facility] Comment on above: Performed By: #### B MP #### [facility] [address] [place] [address] Dr. Carrington Chandler XR CHEST 1 Von [...] TEE LEWIS Date: 2022-07-09 20:51 Normal [facility] AMYLASEon 07-08-2022 Amylase [Catalytic activity/Vol] 40 U/L Normal 25-115 [facility] Comment on above: Performed By: #### A MY, CMP, LIPA #### [facility] [address] [place] [address] Dr. Carrington Chandler CBC AUTO DIFFon 07-08-2022 BASO # 0.0 103/ul Normal 0.0-0.1 [facility] Comment on above: Performed By: #### C BC #### [facility] [address] [place] [address] Dr. Carrington Chandler Basophils/100 WBC (Bld) 0.3 % Normal 0.2-2.0 [facility] Comment on above: Performed By: #### C BC #### [facility] [address] [place] [address] Dr. Carrington Chandler EO # 0.1 103/ul Normal 0.0-0.7 [facility] Comment on above: Performed By: #### C BC #### [facility] [address] [place] [address] Dr. Carrington Chandler Eosinophils/100 WBC (Bld) 1.2 % Normal 0.9-7.0 [facility] Comment on above: Performed By: #### C BC #### [facility] [address] [place] [address] Dr. Carrington Chandler Erythrocyte distribution width (RBC) [Ratio] 12.9 % Normal 11.0-15.0 [facility] Comment on above: Performed By: #### C BC #### [facility] [address] [place] [address] Dr. Carrington Chandler Hematocrit (Bld) [Volume fraction] 43.2 % Normal 42.0-54.0 [facility] Comment on above: Performed By: #### C BC #### [facility] [address] [place] [address] Dr. Carrington Chandler Hemoglobin (Bld) [Mass/Vol] 14.4 g/dL Normal 14.0-18.0 [facility] Comment on above: Performed By: #### C BC #### [facility] [address] [place] [address] Dr. Carrington Chandler IG # 0.02 10e3/ul Normal 0.00-0.03 [facility] Comment on above: Performed By: #### C BC #### [facility] [address] [place] [address] Dr. Carrington Chandler IG % 0.3 % Normal 0.0-0.5 [facility] Comment on above: Performed By: #### C BC #### [facility] [address] [place] [address] Dr. Carrington Chandler LYMPH # 1.6 103/ul Normal 1.2-3.8 [facility] Comment on above: Performed By: #### C BC #### [facility] [address] [place] [address] Dr. Carrington Chandler Lymphocytes/100 WBC (Bld) 24.0 % Normal 20.5-60.0 [facility] Comment on above: Performed By: #### C BC #### [facility] [address] [place] [address] Dr. Carrington Chandler MANUAL DIFF REQ NO Normal [facility] Comment on above: Performed By: #### C BC #### [facility] [address] [place] [address] Dr. Carrington Chandler MCH (RBC) [Entitic mass] 30.2 pg Normal 25.9-34.0 [facility] Comment on above: Performed By: #### C BC #### [facility] [address] [place] [address] Dr. Carrington Chandler MCHC (RBC) [Mass/Vol] 33.3 g/dL Normal 29.9-35.2 [facility] Comment on above: Performed By: #### C BC #### [facility] [address] [place] [address] Dr. Carrington Chandler MCV (RBC) [Entitic vol] 90.6 fL Normal 80.0-94.0 [facility] Comment on above: Performed By: #### C BC #### [facility] [address] [place] [address] Dr. Carrington Chandler MONO # 0.6 103/ul Normal 0.3-0.8 [facility] Comment on above: Performed By: #### C BC #### [facility] [address] [place] [address] Dr. Carrington Chandler Monocytes/100 WBC (Bld) 9.4 % Normal 1.7-12.0 [facility] Comment on above: Performed By: #### C BC #### [facility] [address] [place] [address] Dr. Carrington Chandler NEUT # 4.4 103/ul Normal 1.4-6.5 [facility] Comment on above: Performed By: #### C BC #### [facility] [address] [place] [address] Dr. Carrington Chandler Neutrophils/100 WBC (Bld) 64.8 % Normal 43.0-75.0 [facility] Comment on above: Performed By: #### C BC #### [facility] [address] [place] [address] Dr. Carrington Chandler Platelet mean volume (Bld) [Entitic vol] 9.5 fL Normal 9.5-13.5 [facility] Comment on above: Performed By: #### C BC #### [facility] [address] [place] [address] Dr. Carrington Chandler PLT 174 103/ul Normal 150-450 [facility] Comment on above: Performed By: #### C BC #### [facility] [address] [place] [address] Dr. Carrington Chandler RBC 4.77 106/ul Normal 4.70-6.10 [facility] Comment on above: Performed By: #### C BC #### [facility] [address] [place] [address] Dr. Carrington Chandler WBC 6.7 103/ul Normal 4.0-11.0 [facility] Comment on above: Performed By: #### C BC #### [facility] [address] [place] [address] Dr. Carrington Chandler [facility] SARS-CoV-2 (COVID-19) RNA CHARLIE+probe Ql (Unsp spec) Not detected Normal NOT DETECTED [facility] Comment on above: Result Comment: [...] for this test is supported by the [place] [employer] and Human Service's declaration that [...] used). Performed By: #### B MP #### [facility] [address] [place] [address] Dr. Carrington Chandler INFLUENZA A AND B AGon 07-08 INFLUANE SEE BELOW Normal [facility] Comment on above: Result Comment: Nega tive for Flu A protein angiten. Infection due to Flu A cannot be ruled out. Flu A angiten in the sample may be below the detection limit of the test. Performed By: #### B MP #### [facility] [address] [place] [address] Dr. Carrington Chandler INFLUBNEG SEE BELOW Normal [facility] Comment on above: Result Comment: Nega tive for Flu B protein antigen. Infection due to Flu B cannot be ruled out. Flu B antigen in the sample may be below the detection limit of the test. Performed By: #### B MP #### [facility] [address] [place] [address] Dr. Carrington Chandler INFLUENZA A AG Negative Normal NEGATIVE SEE COMMENT [facility] Comment on above: Performed By: #### B MP #### [facility] [address] [place] [address] Dr. Carrington Chandler INFLUENZA B AG Negative Normal NEGATIVE SEE COMMENT [facility] Comment on above: Performed By: #### B MP #### [facility] [address] [place] [address] Dr. Carrington Chandler INTERNAL CONTROLS Within Normal Limits Normal Wi thin Normal Limits [facility] Comment on above: Performed By: #### B MP #### [facility] [address] [place] [address] Dr. Carrington Chandler LIPASEon 07-08-2022 Lipase [Catalytic activity/Vol] 195.0 U/L Normal 73.0-393.0 [facility] Comment on above: Performed By: #### A MY, CMP, LIPA #### [facility] [address] [place] [address] Dr. Carrington Chandler PROF 14(COMP METB)on 022 Albumin [Mass/Vol] 3.4 g/dL Normal 3.4-5.0 [facility] Comment on above: Performed By: #### A MY, CMP, LIPA #### [facility] [address] [address] [address] Carrington Chandler Albumin/Globulin [Mass ratio] 0.8 {ratio} Normal [facility] Comment on above: Performed By: #### A MY, CMP, LIPA #### [facility] [address] [address] [address] Carrington Chandler ALP [Catalytic activity/Vol] 61 U/L Normal 46-116 [facility] Comment on above: Performed By: #### A MY, CMP, LIPA #### [facility] [address] [address] [address] Carrington Chandler ALT [Catalytic activity/Vol] 26 U/L Normal 16-63 [facility] Comment on above: Performed By: #### A MY, CMP, LIPA #### [facility] [address] [place] [address] Dr. Carrington Chandler Anion gap [Moles/Vol] 11.0 mmol/L Normal [facility] Comment on above: Performed By: #### A MY, CMP, LIPA #### [facility] [address] [address] [address] Carrington Chandler AST [Catalytic activity/Vol] 30 U/L Normal 15-37 [facility] Comment on above: Performed By: #### A MY, CMP, LIPA #### [facility] [address] [address] [address] Carrington Chandler Bilirubin [Mass/Vol] 0.3 mg/dL Normal 0.2-1.0 [facility] Comment on above: Performed By: #### A MY, CMP, LIPA #### [facility] [address] [address] [address] Carrington Chandler Calcium [Mass/Vol] 8.4 mg/dL Critically low 8.5-10.1 [facility] Comment on above: Performed By: #### A MY, CMP, LIPA #### [facility] [address] [address] [address] Carrington Chandler Chloride [Moles/Vol] 102 mmol/L Normal 98-107 [facility] Comment on above: Performed By: #### A MY, CMP, LIPA #### [facility] [address] [address] [address] Carrington Chandler CO2 [Moles/Vol] 28.1 mmol/L Normal 21.0-32.0 [facility] Comment on above: Performed By: #### A MY, CMP, LIPA #### [facility] [address] [place] [address] Dr. Carrington Chandler Creatinine [Mass/Vol] 0.99 mg/dL Normal 0.70-1.30 [facility] Comment on above: Performed By: #### A MY, CMP, LIPA #### [facility] [address] [place] [address] Dr. Carrington Chandler EGFR-AF CYMRAES >60 Normal >=60 [facility] Comment on above: Performed By: #### A MY, CMP, LIPA #### [facility] [address] [place] [address] Dr. Carrington Chandler EGFR-NON AF CYMRAES >60 Normal >=60 [facility] Comment on above: Performed By: #### A MY, CMP, LIPA #### [facility] [address] [place] [address] Dr. Carrington Chandler Globulin (S) [Mass/Vol] 4.3 g/dL Normal [facility] Comment on above: Performed By: #### A MY, CMP, LIPA #### [facility] [address] [place] [address] Dr. Carrington Chandler Glucose [Mass/Vol] 107 mg/dL Critically high 74-106 [facility] Comment on above: Performed By: #### A MY, CMP, LIPA #### [facility] [address] [place] [address] Dr. Carrington Chandler Potassium [Moles/Vol] 4.1 mmol/L Normal 3.5-5.1 [facility] Comment on above: Performed By: #### A MY, CMP, LIPA #### [facility] [address] [place] [address] Dr. Carrington Chandler Protein [Mass/Vol] 7.7 g/dL Normal 6.4-8.2 [facility] Comment on above: Performed By: #### A MY, CMP, LIPA #### [facility] [address] [place] [address] Dr. Carrington Chandler Sodium [Moles/Vol] 137 mmol/L Normal 136-145 [facility] Comment on above: Performed By: #### A MY, CMP, LIPA #### [facility] [address] [place] [address] Dr. Carrington Chandler Urea nitrogen [Mass/Vol] 23.0 mg/dL Critically high 7.0-18.0 [facility] Comment on above: Performed By: #### A MY, CMP, LIPA #### [facility] [address] [place] [address] Dr. Carrington Chandler Urea nitrogen/Creatinine [Mass ratio] 23.2 mg/mg Normal [facility] Comment on above: Performed By: #### A MY, CMP, LIPA #### [facility] [address] [place] [address] Dr. Carrington Chandler CBC AUTO DIFFon 07-03-2022 BASO # 0.0 103/ul Normal 0.0-0.1 [facility] Comment on above: Performed By: #### C MP #### [facility] [address] [place] [address] Dr. Carrington Chandler Basophils/100 WBC (Bld) 0.5 % Normal 0.2-2.0 [facility] Comment on above: Performed By: #### C MP #### [facility] [address] [place] [address] Dr. Carrington Chandler EO # 0.3 103/ul Normal 0.0-0.7 [facility] Comment on above: Performed By: #### C MP #### [facility] [address] [place] [address] Dr. Carrington Chandler Eosinophils/100 WBC (Bld) 4.7 % Normal 0.9-7.0 [facility] Comment on above: Performed By: #### C MP #### [facility] [address] [place] [address] Dr. Carrington Chandler Erythrocyte distribution width (RBC) [Ratio] 12.7 % Normal 11.0-15.0 [facility] Comment on above: Performed By: #### C MP #### [facility] [address] [place] [address] Dr. Carrington Chandler Hematocrit (Bld) [Volume fraction] 38.8 % Critically low 42.0-54.0 [facility] Comment on above: Performed By: #### C MP #### [facility] [address] [place] [address] Dr. Carrington Chandler Hemoglobin (Bld) [Mass/Vol] 13.2 g/dL Critically low 14.0-18.0 [facility] Comment on above: Performed By: #### C MP #### [facility] [address] [place] [address] Dr. Carrington Chandler IG # 0.01 10e3/ul Normal 0.00-0.03 [facility] Comment on above: Performed By: #### C MP #### [facility] [address] [place] [address] Dr. Carrington Chandler IG % 0.2 % Normal 0.0-0.5 [facility] Comment on above: Performed By: #### C MP #### [facility] [address] [place] [address] Dr. Carrington Chandler LYMPH # 1.4 103/ul Normal 1.2-3.8 [facility] Comment on above: Performed By: #### C MP #### [facility] [address] [place] [address] Dr. Carrington Chandler Lymphocytes/100 WBC (Bld) 25.2 % Normal 20.5-60.0 [facility] Comment on above: Performed By: #### C MP #### [facility] [address] [place] [address] Dr. Carrington Chandler MANUAL DIFF REQ NO Normal [facility] Comment on above: Performed By: #### C MP #### [facility] [address] [place] [address] Dr. Carrington Chandler MCH (RBC) [Entitic mass] 30.3 pg Normal 25.9-34.0 [facility] Comment on above: Performed By: #### C MP #### [facility] [address] [place] [address] Dr. Carrington Chandler MCHC (RBC) [Mass/Vol] 34.0 g/dL Normal 29.9-35.2 [facility] Comment on above: Performed By: #### C MP #### [facility] [address] [place] [address] Dr. Carrington Chandler MCV (RBC) [Entitic vol] 89.2 fL Normal 80.0-94.0 [facility] Comment on above: Performed By: #### C MP #### [facility] [address] [place] [address] Dr. Carrington Chandler MONO # 0.6 103/ul Normal 0.3-0.8 [facility] Comment on above: Performed By: #### C MP #### [facility] [address] [place] [address] Dr. Carrington Chandler Monocytes/100 WBC (Bld) 10.2 % Normal 1.7-12.0 [facility] Comment on above: Performed By: #### C MP #### [facility] [address] [place] [address] Dr. Carrington Chandler NEUT # 3.3 103/ul Normal 1.4-6.5 [facility] Comment on above: Performed By: #### C MP #### [facility] [address] [place] [address] Dr. Carrington Chandler Neutrophils/100 WBC (Bld) 59.2 % Normal 43.0-75.0 [facility] Comment on above: Performed By: #### C MP #### [facility] [address] [place] [address] Dr. Carrington Chandler Platelet mean volume (Bld) [Entitic vol] 9.1 fL Critically low 9.5-13.5 [facility] Comment on above: Performed By: #### C MP #### [facility] [address] [address] [address] Carrington Chandler PLT 199 103/ul Normal 150-450 [facility] Comment on above: Performed By: #### C MP #### [facility] [address] [address] [address] Carrington Chandler RBC 4.35 106/ul Critically low 4.70-6.10 [facility] Comment on above: Performed By: #### C MP #### [facility] [address] [address] [address] Carrington Chandler WBC 5.5 103/ul Normal 4.0-11.0 [facility] Comment on above: Performed By: #### C MP #### [facility] [address] [place] [address] Dr. Carrington Chandler Covid-19 PCR ([facility])on SARS-CoV-2 (COVID-19) RNA CHARLIE+probe Ql (Unsp spec) Not detected Normal NOT DETECTED [facility] Comment on above: Result Comment: [...] for this test is supported by the [place] [employer] Human [employer]'s declaration that [...] used). Performed By: #### B MP #### [facility] [address] [place] [address] Dr. Carrington Chandler PROF 14(COMP METB)on 022 Albumin [Mass/Vol] 3.8 g/dL Normal 3.4-5.0 [facility] Comment on above: Performed By: #### C MP #### [facility] [address] [address] [address] Carrington Chandler Albumin/Globulin [Mass ratio] 1.0 {ratio} Normal [facility] Comment on above: Performed By: #### C MP #### [facility] [address] [address] [address] Carrington Chandler ALP [Catalytic activity/Vol] 69 U/L Normal 46-116 [facility] Comment on above: Performed By: #### C MP #### [facility] [address] [address] [address] Carrington Chandler ALT [Catalytic activity/Vol] 18 U/L Normal 16-63 [facility] Comment on above: Performed By: #### C MP #### [facility] [address] [place] [address] Dr. Carrington Chandler Anion gap [Moles/Vol] 13.3 mmol/L Normal [facility] Comment on above: Performed By: #### C MP #### [facility] [address] [place] [address] Dr. Carrington Chandler AST [Catalytic activity/Vol] 19 U/L Normal 15-37 [facility] Comment on above: Performed By: #### C MP #### [facility] [address] [place] [address] Dr. Carrington Chandler Bilirubin [Mass/Vol] 0.3 mg/dL Normal 0.2-1.0 [facility] Comment on above: Performed By: #### C MP #### [facility] [address] [place] [address] Dr. Carrington Chandler Calcium [Mass/Vol] 9.0 mg/dL Normal 8.5-10.1 [facility] Comment on above: Performed By: #### C MP #### [facility] [address] [place] [address] Dr. Carrington Chandler Chloride [Moles/Vol] 101 mmol/L Normal 98-107 [facility] Comment on above: Performed By: #### C MP #### [facility] [address] [address] [address] Carrington Chandler CO2 [Moles/Vol] 26.7 mmol/L Normal 21.0-32.0 [facility] Comment on above: Performed By: #### C MP #### [facility] [address] [place] [address] Dr. Carrington Chandler Creatinine [Mass/Vol] 1.06 mg/dL Normal 0.70-1.30 [facility] Comment on above: Performed By: #### C MP #### [facility] [address] [place] [address] Dr. Carrington Chandler EGFR-AF CYMRAES >60 Normal >=60 [facility] Comment on above: Performed By: #### C MP #### [facility] [address] [place] [address] Dr. Carrington Chandler EGFR-NON AF CYMRAES >60 Normal >=60 [facility] Comment on above: Performed By: #### C MP #### [facility] [address] [place] [address] Dr. Carrington Chandler Globulin (S) [Mass/Vol] 3.8 g/dL Normal [facility] Comment on above: Performed By: #### C MP #### [facility] [address] [place] [address] Dr. Carrington Chandler Glucose [Mass/Vol] 98 mg/dL Normal 74-106 [facility] Comment on above: Performed By: #### C MP #### [facility] [address] [place] [address] Dr. Carrington Chandler Potassium [Moles/Vol] 4.0 mmol/L Normal 3.5-5.1 [facility] Comment on above: Performed By: #### C MP #### [facility] [address] [place] [address] Dr. Carrington Chandler Protein [Mass/Vol] 7.6 g/dL Normal 6.4-8.2 [facility] Comment on above: Performed By: #### C MP #### [facility] [address] [place] [address] Dr. Carrington Chandler Sodium [Moles/Vol] 137 mmol/L Normal 136-145 [facility] Comment on above: Performed By: #### C MP #### [facility] [address] [address] [address] Carrington Chandler Urea nitrogen [Mass/Vol] 21.0 mg/dL Critically high 7.0-18.0 [facility] Comment on above: Performed By: #### C MP #### [facility] [address] [address] [address] Carrington Chandler Urea nitrogen/Creatinine [Mass ratio] 19.8 mg/mg Normal [facility] Comment on above: Performed By: #### C MP #### [facility] [address] [address] [address] Carrington Chandler XR CHEST 1 Von [...] CYNTHIA VASQUEZ Date: 2022-07-03 21:16 Normal [facility] CBC AUTO DIFFon 02-03-2022 BASO # 0.0 103/ul Normal 0.0-0.1 [facility] Comment on above: Performed By: #### C BC #### [facility] [address] [address] [address] Carrington Chandler Basophils/100 WBC (Bld) 0.3 % Normal 0.2-2.0 [facility] Comment on above: Performed By: #### C BC #### [facility] [address] [place] [address] Dr. Carrington Chandler EO # 0.1 103/ul Normal 0.0-0.7 [facility] Comment on above: Performed By: #### C BC #### [facility] [address] [place] [address] Dr. Carrington Chandler Eosinophils/100 WBC (Bld) 0.9 % Normal 0.9-7.0 [facility] Comment on above: Performed By: #### C BC #### [facility] [address] [place] [address] Dr. Carrington Chandler Erythrocyte distribution width (RBC) [Ratio] 13.9 % Normal 11.0-15.0 [facility] Comment on above: Performed By: #### C BC #### [facility] [address] [place] [address] Dr. Carrington Chandler Hematocrit (Bld) [Volume fraction] 40.4 % Critically low 42.0-54.0 [facility] Comment on above: Performed By: #### C BC #### [facility] [address] [place] [address] Dr. Carrington Chandler Hemoglobin (Bld) [Mass/Vol] 13.4 g/dL Critically low 14.0-18.0 [facility] Comment on above: Performed By: #### C BC #### [facility] [address] [place] [address] Dr. Carrington Chandler IG # 0.03 10e3/ul Normal 0.00-0.03 [facility] Comment on above: Performed By: #### C BC #### [facility] [address] [place] [address] Dr. Carrington Chandler IG % 0.3 % Normal 0.0-0.5 [facility] Comment on above: Performed By: #### C BC #### [facility] [address] [place] [address] Dr. Carrington Chandler LYMPH # 1.5 103/ul Normal 1.2-3.8 [facility] Comment on above: Performed By: #### C BC #### [facility] [address] [place] [address] Dr. Carrington Chandler Lymphocytes/100 WBC (Bld) 12.3 % Critically low 20.5-60.0 [facility] Comment on above: Performed By: #### C BC #### [facility] [address] [place] [address] Dr. Carrington Chandler MANUAL DIFF REQ NO Normal [facility] Comment on above: Performed By: #### C BC #### [facility] [address] [place] [address] Dr. Carrington Chandler MCH (RBC) [Entitic mass] 30.0 pg Normal 25.9-34.0 [facility] Comment on above: Performed By: #### C BC #### [facility] [address] [place] [address] Dr. Carrington Chandler MCHC (RBC) [Mass/Vol] 33.2 g/dL Normal 29.9-35.2 [facility] Comment on above: Performed By: #### C BC #### [facility] [address] [place] [address] Dr. Carrington Chandler MCV (RBC) [Entitic vol] 90.6 fL Normal 80.0-94.0 [facility] Comment on above: Performed By: #### C BC #### [facility] [address] [place] [address] Dr. Carrington Chandler MONO # 1.0 103/ul Critically high 0.3-0.8 [facility] Comment on above: Performed By: #### C BC #### [facility] [address] [place] [address] Dr. Carrington Chandler Monocytes/100 WBC (Bld) 8.5 % Normal 1.7-12.0 [facility] Comment on above: Performed By: #### C BC #### [facility] [address] [place] [address] Dr. Carrington Chandler NEUT # 9.2 103/ul Critically high 1.4-6.5 [facility] Comment on above: Performed By: #### C BC #### [facility] [address] [place] [address] Dr. Carrington Chandler Neutrophils/100 WBC (Bld) 77.7 % Critically high 43.0-75.0 [facility] Comment on above: Performed By: #### C BC #### [facility] [address] [address] [address] Carrington Chandler Platelet mean volume (Bld) [Entitic vol] 9.5 fL Normal 9.5-13.5 [facility] Comment on above: Performed By: #### C BC #### [facility] [address] [place] [address] Dr. Carrington Chandler PLT 204 103/ul Normal 150-450 [facility] Comment on above: Performed By: #### C BC #### [facility] [address] [address] [address] Carrington Chandler RBC 4.46 106/ul Critically low 4.70-6.10 [facility] Comment on above: Performed By: #### C BC #### [facility] [address] [address] [address] Carrington Chandler WBC 11.9 103/ul Critically high 4.0-11.0 [facility] Comment on above: Performed By: #### C BC #### [facility] [address] [place] [address] Dr. Carrington Chandler Cov[facility]-19 [facility]23 SARS-CoV-2 (COVID-19) RNA CHARLIE+probe Ql (Unsp spec) Not detected Normal NOT DETECTED [facility] Comment on above: Result Comment: [...] for this test is supported by the [place] of Health and Human Service's declaration that [...] used). Performed By: #### C VDTB #### [facility] [address] [place] [address] Dr. Carrington Chandler PROF 14(COMP METB)on 022 Albumin [Mass/Vol] 3.7 g/dL Normal 3.4-5.0 [facility] Comment on above: Performed By: #### C MP #### [facility] [address] [place] [address] Dr. Carrington Chandler Albumin/Globulin [Mass ratio] 0.9 {ratio} Normal [facility] Comment on above: Performed By: #### C MP #### [facility] [address] [place] [address] Dr. Carrington Chandler ALP [Catalytic activity/Vol] 62 U/L Normal 46-116 [facility] Comment on above: Performed By: #### C MP #### [facility] [address] [place] [address] Dr. Carrington Chandler ALT [Catalytic activity/Vol] 21 U/L Normal 16-63 [facility] Comment on above: Performed By: #### C MP #### [facility] [address] [place] [address] Dr. Carrington Chandler Anion gap [Moles/Vol] 12.3 mmol/L Normal [facility] Comment on above: Performed By: #### C MP #### [facility] [address] [place] [address] Dr. Carrington Chandler AST [Catalytic activity/Vol] 13 U/L Critically low 15-37 [facility] Comment on above: Performed By: #### C MP #### [facility] [address] [place] [address] Dr. Carrington Chandler Bilirubin [Mass/Vol] 0.5 mg/dL Normal 0.2-1.0 [facility] Comment on above: Performed By: #### C MP #### [facility] [address] [address] [address] Carrington Chandler Calcium [Mass/Vol] 9.1 mg/dL Normal 8.5-10.1 [facility] Comment on above: Performed By: #### C MP #### [facility] [address] [address] [address] Carrington Chandler Chloride [Moles/Vol] 102 mmol/L Normal 98-107 [facility] Comment on above: Performed By: #### C MP #### [facility] [address] [address] [address] Carrington Chandler CO2 [Moles/Vol] 24.9 mmol/L Normal 21.0-32.0 [facility] Comment on above: Performed By: #### C MP #### [facility] [address] [place] [address] Dr. Carrington Chandler Creatinine [Mass/Vol] 1.36 mg/dL Critically high 0.70-1.30 [facility] Comment on above: Performed By: #### C MP #### [facility] [address] [address] [address] Carrington Chandler EGFR-AF CYMRAES >60 Normal >=60 [facility] Comment on above: Performed By: #### C MP #### [facility] [address] [place] [address] Dr. Carrington Chandler EGFR-NON AF CYMRAES 53 mL/min/1.73m2 Critically low >=60 [facility] Comment on above: Performed By: #### C MP #### [facility] [address] [place] [address] Dr. Carrington Chandler Globulin (S) [Mass/Vol] 3.9 g/dL Normal [facility] Comment on above: Performed By: #### C MP #### [facility] [address] [place] [address] Dr. Carrington Chandler Glucose [Mass/Vol] 138 mg/dL Critically high 74-106 T [facility] Comment on above: Performed By: #### C MP #### [facility] [address] [place] [address] Dr. Carrington Chandler Potassium [Moles/Vol] 4.2 mmol/L Normal 3.5-5.1 [facility] Comment on above: Performed By: #### C MP #### [facility] [address] [address] [address] Carrington Chandler Protein [Mass/Vol] 7.6 g/dL Normal 6.4-8.2 [facility] Comment on above: Performed By: #### C MP #### [facility] [address] [address] [address] Carrington Chandler Sodium [Moles/Vol] 135 mmol/L Critically low 136-145 [facility] Comment on above: Performed By: #### C MP #### [facility] [address] [address] [address] Carrington Chandler Urea nitrogen [Mass/Vol] 24.0 mg/dL Critically high 7.0-18.0 [facility] Comment on above: Performed By: #### C MP #### [facility] [address] [address] [address] Carrington Chandler Urea nitrogen/Creatinine [Mass ratio] 17.6 mg/mg Normal [facility] Comment on above: Performed By: #### C MP #### [facility] [address] [address] [address] Carrington Chandler XR CHEST 1 Von [...] by: DAREK MARX Date: 2022-02-03 02:09 Normal [facility] Vital Signs Date Time Vital Sign Value Performing Clinician Facility 09-20-2024 09:17-0500 Body height 167.6 cm Alok Akbar RODAS Work Phone: [facility] 09-20-2024 09:17-0500 Body mass index (BMI) [Ratio] 39.22 kg/m2 Alok Akbar DO Work Phone: [facility] 09-20-2024 09:17-0500 Body weight 110.22 kg Alok Headleykan RODAS Work Phone: [facility] 09-20-2024 09:17-0500 Diastolic blood pressure 78 mm[Hg] Alok Headleykan RODAS Work Phone: [facility] 09-20-2024 09:17-0500 Heart rate 115 /min Alok Headleykan RODAS Work Phone: [facility] 09-20-2024 09:17-0500 Systolic blood pressure 124 mm[Hg] Alok Webber DO Work Phone: [facility] 09-14-2024 10:50-0500 Body height 170.2 cm Rom Pierre MD Work Phone: [facility] 09-14-2024 10:50-0500 Body mass index (BMI) [Ratio] 38.53 kg/m2 Rom Pierre MD Work Phone: [facility] 09-14-2024 10:50-0500 Body temperature 97.39 [degF] Rom Pierre MD Work Phone: [facility] 09-14-2024 10:50-0500 Body weight 111.58 kg Rom Pierre MD Work Phone: [facility] 09-14-2024 10:50-0500 Diastolic blood pressure 72 mm[Hg] Rom Pierre MD Work Phone: [facility] 09-14-2024 10:50-0500 Heart rate 96 /min Rom Pierre MD Work Phone: [facility] 09-14-2024 10:50-0500 Respiratory rate 16 /min Rom Pierre MD Work Phone: [facility] 09-14-2024 10:50-0500 SaO2% (BldA) [Mass fraction] 96 % Rom Pierre MD Work Phone: [facility] 09-14-2024 10:50-0500 Systolic blood pressure 126 mm[Hg] Rom Pierre MD Work Phone: [facility] 05-29-2024 15:05-0500 Body height 170.18 cm [facility] 05-29-2024 15:05-0500 Body mass index (BMI) [Ratio] 37.4 kg/m2 [facility] 05-29-2024 15:05-0500 Body weight 108.4 kg [facility] 05-29-2024 15:05-0500 Diastolic blood pressure 69 mm[Hg] [facility] 05-29-2024 15:05-0500 Heart rate 93 /min [facility] 05-29-2024 15:05-0500 SaO2% (BldA) [Mass fraction] 93 % [facility] 05-29-2024 15:05-0500 Systolic blood pressure 124 mm[Hg] [facility] 05-11-2024 14:52-0400 Diastolic blood pressure 72 mm[Hg] [facility] 05-11-2024 14:52-0400 Heart rate 108 /min [facility] 05-11-2024 14:52-0400 SaO2% (BldA) [Mass fraction] 95 % [facility] 05-11-2024 14:52-0400 Systolic blood pressure 118 mm[Hg] [facility] 03-09-2024 10:23-0400 Body height 170.2 cm Rom Pierre MD Work Phone: [facility] 03-09-2024 10:23-0400 Body mass index (BMI) [Ratio] 37.93 kg/m2 Rom Pierre MD Work Phone: [facility] 03-09-2024 10:23-0400 Body weight 109.86 kg Rom Pierre MD Work Phone: [facility] 03-09-2024 10:23-0400 Diastolic blood pressure 86 mm[Hg] Rom Pierre MD Work Phone: [facility] 03-09-2024 10:23-0400 Heart rate 93 /min Rom Pierre MD Work Phone: [facility] 03-09-2024 10:23-0400 SaO2% (BldA) [Mass fraction] 95 % Rom Pierre MD Work Phone: [facility] 03-09-2024 10:23-0400 Systolic blood pressure 148 mm[Hg] Rom Pierre MD Work Phone: [facility] 02-24-2024 14:00-0400 Body height 170.18 cm [facility] 02-24-2024 14:00-0400 Body mass index (BMI) [Ratio] 37.7 kg/m2 [facility] 02-24-2024 14:00-0400 Body weight 109.31 kg [facility] 02-24-2024 14:00-0400 Diastolic blood pressure 63 mm[Hg] [facility] 02-24-2024 14:00-0400 Heart rate 99 /min [facility] 02-24-2024 14:00-0400 Systolic blood pressure 99 mm[Hg] [facility] 01-05-2024 12:56-0400 Body height 170.18 cm [facility] 01-05-2024 12:56-0400 Body mass index (BMI) [Ratio] 38.2 kg/m2 [facility] 01-05-2024 12:56-0400 Body weight 110.78 kg [facility] 01-05-2024 12:56-0400 Diastolic blood pressure 66 mm[Hg] [facility] 01-05-2024 12:56-0400 Heart rate 66 /min [facility] 01-05-2024 12:56-0400 SaO2% (BldA) [Mass fraction] 91 % [facility] 01-05-2024 12:56-0400 Systolic blood pressure 108 mm[Hg] [facility] 12-13-2023 13:44-0400 Body height 171.45 cm [facility] 12-13-2023 13:44-0400 Body mass index (BMI) [Ratio] 37.5 kg/m2 [facility] 12-13-2023 13:44-0400 Body weight 110.22 kg [facility] 12-13-2023 13:44-0400 Diastolic blood pressure 60 mm[Hg] [facility] 12-13-2023 13:44-0400 Heart rate 87 /min [facility] 12-13-2023 13:44-0400 SaO2% (BldA) [Mass fraction] 97 % [facility] 12-13-2023 13:44-0400 Systolic blood pressure 102 mm[Hg] [facility] 11-25-2023 14:56-0400 Body height 2042.16 cm [facility] 11-25-2023 14:56-0400 Body mass index (BMI) [Ratio] 0.2 kg/m2 [facility] 11-25-2023 14:56-0400 Body weight 110.22 kg [facility] 11-25-2023 14:56-0400 Diastolic blood pressure 68 mm[Hg] [facility] 11-25-2023 14:56-0400 Heart rate 71 /min [facility] 11-25-2023 14:56-0400 SaO2% (BldA) [Mass fraction] 93 % [facility] 11-25-2023 14:56-0400 Systolic blood pressure 116 mm[Hg] [facility] 10-26-2023 14:31-0400 Body height 171.45 cm [facility] 10-26-2023 14:31-0400 Body mass index (BMI) [Ratio] 37 kg/m2 [facility] 10-26-2023 14:31-0400 Body weight 108.86 kg [facility] 10-26-2023 14:31-0400 Diastolic blood pressure 65 mm[Hg] [facility] 10-26-2023 14:31-0400 Heart rate 78 /min [facility] 10-26-2023 14:31-0400 SaO2% (BldA) [Mass fraction] 97 % [facility] 10-26-2023 14:31-0400 Systolic blood pressure 103 mm[Hg] [facility] 10-04-2023 15:13-0400 Body height 171.45 cm [facility] 10-04-2023 15:13-0400 Body mass index (BMI) [Ratio] 36.7 kg/m2 [facility] 10-04-2023 15:13-0400 Body weight 108.04 kg [facility] 10-04-2023 15:13-0400 Diastolic blood pressure 63 mm[Hg] [facility] 10-04-2023 15:13-0400 Heart rate 72 /min [facility] 10-04-2023 15:13-0400 SaO2% (BldA) [Mass fraction] 93 % [facility] 10-04-2023 15:13-0400 Systolic blood pressure 95 mm[Hg] [facility] 09-14-2023 09:13-0500 Body height 170.2 cm Alok Webber DO Work Phone: [facility] 09-14-2023 09:13-0500 Body mass index (BMI) [Ratio] 36.81 kg/m2 Alok Webber DO Work Phone: [facility] 09-14-2023 09:130500 Body weight 106.59 kg Alok Webber DO Work Phone: [facility] 09-14-2023 09:13-0500 Diastolic blood pressure 70 mm[Hg] Alok Webber DO Work Phone: [facility] 09-14-2023 09:13-0500 Heart rate 72 /min Alok Webber DO Work Phone: [facility] 09-14-2023 09:13-0500 Systolic blood pressure 118 mm[Hg] Alok Webber Work Phone: [facility] 08-06-2023 13:30-0500 Body height 171.45 cm Brock Modi Other [facility] 08-06-2023 13:30-0500 Body mass index (BMI) [Ratio] 35.95 kg/m2 Brock Modi Other [facility] [employer] Other 08-06-2023 13:30-0500 Body weight 105.69 kg Brock Modi Other [facility] [employer] Other 08-06-2023 13:30-0500 Body weight 105.68 kg [facility] 08-06-2023 13:30-0500 Diastolic blood pressure 66 mm[Hg] Brock Modi Other [facility] 08-06-2023 13:30-0500 SaO2% (BldA) [Mass fraction] 95 % Brock Modi Other [facility] [employer] Other 08-06-2023 13:30-0500 Systolic blood pressure 108 mm[Hg] Brock Modi Other [facility] 08-05-2023 14:23-0500 Diastolic blood pressure 76 mm[Hg] Christopher Sewell MD Work Phone: [facility] [employer] [facility] 08-05-2023 14:23-0500 Heart rate 70 /min Christopher Sewell MD Work Phone: [employer] [facility] 08-05-2023 14:23-0500 Systolic blood pressure 108 mm[Hg] Christopher Sewell MD Work Phone: [facility] [employer] [facility] 08-05-2023 14:22-0500 Body height 170.2 cm Christopher Sewell [facility] [employer] [facility] 08-05-2023 14:22-0500 Body mass index (BMI) [Ratio] 36.43 kg/m2 Christopher Sewell MD Work Phone: [employer] 08-05-2023 14:22-0500 Body weight 105.51 kg Christopher Sewell MD Work Phone: [employer] 08-05-2023 14:22-0500 Respiratory rate 18 /min Christopher Sewell MD Work Phone: [employer] 06-24-2023 11:00-0500 Body height 171.45 cm Brock Modi Other [employer] Other 06-24-2023 11:00-0500 Body mass index (BMI) [Ratio] 34.56 kg/m2 Brock Modi Other [employer] Other 06-24-2023 11:00-0500 Body temperature 98.1 [degF] Brock Modi Other [employer] Other 06-24-2023 11:00-0500 Body weight 101.61 kg Brock Modi Other [employer] Other 06-24-2023 11:00-0500 Diastolic blood pressure 67 mm[Hg] Brock Modi Other [employer] Other 06-24-2023 11:00-0500 SaO2% (BldA) [Mass fraction] 95 % Brock Modi Other [employer] Other 06-24-2023 11:00-0500 Systolic blood pressure 109 mm[Hg] Brock Modi Other [employer] Other 03-16-2023 11:30-0400 Body height 171.45 cm Brock Modi Other [employer] Other 03-16-2023 11:30-0400 Body mass index (BMI) [Ratio] 33.48 kg/m2 Brock Modi Other [employer] Other 03-16-2023 11:30-0400 Body weight 98.43 kg Brock Modi Other [employer] Other 03-16-2023 11:30-0400 Diastolic blood pressure 67 mm[Hg] Brock Modi Other [employer] Other 03-16-2023 11:30-0400 SaO2% (BldA) [Mass fraction] 93 % Brock Modi Other [employer] Other 03-16-2023 11:30-0400 Systolic blood pressure 114 mm[Hg] Brock Modi Other [employer] Other 02-04-2023 13:30-0400 Body height 171.45 cm Brock Moid Other [employer] Other 02-04-2023 13:30-0400 Body mass index (BMI) [Ratio] 33.64 kg/m2 Brock Modi Other [employer] Other 02-04-2023 13:30-0400 Body weight 98.88 kg Brock Modi Other [employer] Other 02-04-2023 13:30-0400 Diastolic blood pressure 67 mm[Hg] Brock Modi Other [employer] Other 02-04-2023 13:30-0400 SaO2% (BldA) [Mass fraction] 96 % Brock Modi Other [employer] Other 02-04-2023 13:30-0400 Systolic blood pressure 117 mm[Hg] Brock Modi Other [employer] Other 12-24-2022 14:08-0400 Body height 167.64 cm Brock Modi Work Phone[facility] DO Work Phone: 12-24-2022 14:08-0400 Body mass index (BMI) [Ratio] 35.02 kg/m2 Brock Modi Work Phone: [facility] DO Work Phone: 12-24-2022 14:08-0400 Body surface area Derived from formula 2.07 m2 Brock Modi Work Phone: [facility] DO Work Phone: 12-24-2022 14:08-0400 Body weight 98.43 kg Brock Modi Work Phone: [facility] 250 DO Work Phone: 12-24-2022 14:08-0400 Diastolic blood pressure 80 mm[Hg] Brock Modi Work Phone: [facility] [place] 250 DO Work Phone: 12-24-2022 14:08-0400 Heart rate 115 /min Brock Modi Work Phone: [facility] [place] 250 DO Work Phone: 12-24-2022 14:08-0400 Systolic blood pressure 124 mm[Hg] Brokc Modi Work Phone: [facility] 250 DO Work Phone: 11-27-2022 11:00-0400 Body height 171.45 cm Wagner Marrufo Other [employer] Other 11-27-2022 11:00-0400 Body mass index (BMI) [Ratio] 33.48 kg/m2 Wagner Marrufo Other [employer] Other 11-27-2022 11:00-0400 Body weight 98.43 kg Wagner Marrufo Other [employer] Other 11-12-2022 12:45-0400 Body height 171.45 cm Brock Modi Other [employer] Other 11-12-2022 12:45-0400 Body mass index (BMI) [Ratio] 33.48 kg/m2 Brock Modi Other [employer] Other 11-12-2022 12:45-0400 Body weight 98.43 kg Brock Modi Other [employer] Other 11-12-2022 12:45-0400 Diastolic blood pressure 78 mm[Hg] Brock Modi Other [employer] Other 11-12-2022 12:45-0400 SaO2% (BldA) [Mass fraction] 92 % Brock Modi Other [employer] Other 11-12-2022 12:45-0400 Systolic blood pressure 122 mm[Hg] Brock Modi Other [employer] Other 10-21-2022 15:18-0400 Body height 167.64 cm Brock Modi Work Phone: [employer] [facility] [employer] 250 DO Work Phone: 10-21-2022 15:18-0400 Body mass index (BMI) [Ratio] 35.51 kg/m2 Brock Modi Work Phone: [facility] [employer] 250 DO Work Phone: 10-21-2022 15:18-0400 Body surface area Derived from formula 2.08 m2 Brock Modi Work Phone: [facility] [employer] 250 DO Work Phone: 10-21-2022 15:18-0400 Body weight 99.79 kg Brock Modi Work Phone: [facility] [employer] 250 DO Work Phone: 10-21-2022 15:18-0400 Diastolic blood pressure 70 mm[Hg] Brock Mdoi Work Phone: [facility] [employer] 250 DO Work Phone: 10-21-2022 15:18-0400 Heart rate 84 /min Brock Modi Work Phone: [facility] [employer] 250 DO Work Phone: 10-21-2022 15:18-0400 Systolic blood pressure 126 mm[Hg] Brock Modi Work Phone: [facility] [employer] 250 DO Work Phone: 10-15-2022 11:15-0400 Body height 171.45 cm Brock Modi Other [employer] Other 10-15-2022 11:15-0400 Body mass index (BMI) [Ratio] 33.33 kg/m2 Brock Modi Other [employer] Other 10-15-2022 11:15-0400 Body weight 97.98 kg Brock Modi Other [employer] Other 10-15-2022 11:15-0400 Diastolic blood pressure 84 mm[Hg] Brock Modi Other [employer] Other 10-15-2022 11:15-0400 SaO2% (BldA) [Mass fraction] 94 % Brock Modi Other [employer] Other 10-15-2022 11:15-0400 Systolic blood pressure 122 mm[Hg] Brock Modi Other [facility] [employer] Other 10-13-2022 11:57-0400 Body temperature 97.4 [degF] [...] 08:46-0400 65 1 Brock Modi Work Phone: [facility] 250 DO Work Phone: Comment on above: [id number] 10-10-2022 04:57-0400 Body height 170.18 cm MD Brock Modi Work Phone: [facility] 09-09-2022 14:30-0500 Body height 171.45 cm Wagner Marrufo Other [employer] Other 09-09-2022 14:30-0500 Body mass index (BMI) [Ratio] 34.41 kg/m2 Wagner Marrufo Other [employer] Other 09-09-2022 14:30-0500 Body weight 101.15 kg Wagner Marrufo Other [employer] Other 08-13-2022 12:15-0500 Body height 171.45 cm Brock Modi Other [employer] Other 08-13-2022 12:15-0500 Body mass index (BMI) [Ratio] 34.38 kg/m2 Brock Modi Other [employer] Other 08-13-2022 12:15-0500 Body weight 101.06 kg Brock Modi Other [employer] Other 08-13-2022 12:15-0500 Diastolic blood pressure 84 mm[Hg] Brock Modi Other [employer] Other 08-13-2022 12:15-0500 SaO2% (BldA) [Mass fraction] 97 % Brock Modi Other [employer] Other 08-13-2022 12:15-0500 Systolic blood pressure 132 mm[Hg] Brock Modi Other [employer] Other 07-30-2022 12:30-0500 Body height 171.45 cm Brock Modi Other [employer] Other 07-30-2022 12:30-0500 Body mass index (BMI) [Ratio] 32.71 kg/m2 Brock Modi Other [employer] Other 07-30-2022 12:30-0500 Body weight 96.16 kg Brokc Modi Other [employer] Other 07-30-2022 12:30-0500 Diastolic blood pressure 80 mm[Hg] Brock Modi Other [employer] Other 07-30-2022 12:30-0500 SaO2% (BldA) [Mass fraction] 97 % Brock Modi Other [employer] Other 07-30-2022 12:30-0500 Systolic blood pressure 122 mm[Hg] Brock Modi Other [employer] Other Encounters Encounter Date Encounter Type Care Provider Facility Start: 09-20-2024 End: 09-20-2024 ambulatory [facility] Start: 09-20-2024 End: 09-20-2024 Encounter for preprocedural cardiovascular examination [facility] Start: 09-20-2024 End: 09-20-2024 Office consultation new/estab patient 80 min Alok Webber DO Work Phone: [facility] Comment on above: Preop cardiovascular exam; Atherosclerosis of [place] coronary artery of [place] heart without angina pectoris; Ischemic cardiomyopathy; Past myocardial infarction; Mixed hyperlipidemia; Essential hypertension; Murmur, heart; Moderate chronic obstructive pulmonary disease (Multi); Lung mass; Obesity (BMI 35.0-39.9 without comorbidity); Current smoker Start: 09-20-2024 End: 09-20-2024 Patient encounter status Alok Webber DO Work Phone: [facility] Start: 09-14-2024 ambulatory BROCK MODI [facility] Start: 09-14-2024 End: 09-14-2024 Office outpatient visit 25 minutes Rom Pierre MD Work Phone: [facility] Comment on above: Infrarenal abdominal aortic aneurysm (AAA) without rupture ([facility]) (Primary Dx); Cigarette smoker motivated to quit; Bilateral carotid bruits Start: 09-14-2024 End: 09-14-2024 ambulatory [facility] Start: 09-12-2024 End: 09-12-2024 ambulatory [facility] Start: 09-11-2024 End: 09-12-2024 Clinisync Result Encounter Rom Pierre MD Work Phone: [facility] External Department Unsolicited Start: 09-11-2024 End: 09-12-2024 Clinisync Result Encounter Rom Pierre MD Work Phone: [facility] External Department Unsolicited Start: 05-29-2024 End: 05-29-2024 ambulatory [facility] Work Phone: Start: 05-29-2024 End: 05-29-2024 Patient encounter procedure [facility] Work Phone: Start: 05-26-2024 Non-patient / Non-visit [facility] Work Phone: Start: 05-11-2024 Non-patient / Non-visit [facility] Work Phone: Start: 05-08-2024 Non-patient / Non-visit [facility] Work Phone: Start: 05-07-2024 Non-patient / Non-visit [facility] Work Phone: Start: 03-09-2024 End: 03-09-2024 Office outpatient visit 25 minutes Rom Pierre MD Work Phone: [facility] Comment on above: Infrarenal abdominal aortic aneurysm (AAA) without rupture ([facility]-HCC) (Primary Dx); Bilateral carotid bruits; Cigarette smoker Start: 03-03-2024 End: 03-03-2024 [facility] Start: 02-24-2024 End: 02-24-2024 ambulatory [facility] Work Phone: Start: 02-24-2024 End: 02-24-2024 Patient encounter procedure [facility] Work Phone: Start: 01-05-2024 End: 01-05-2024 ambulatory [facility] Work Phone: Start: 01-05-2024 End: 01-05-2024 Patient encounter procedure [facility] Work Phone: Start: 12-13-2023 End: 12-13-2023 ambulatory [facility] Work Phone: Start: 12-13-2023 End: 12-13-2023 Patient encounter procedure [facility] Work Phone: Start: 11-25-2023 End: 11-25-2023 Patient encounter procedure [facility] Work Phone: Start: 10-26-2023 End: 10-26-2023 ambulatory [facility] Work Phone: Start: 10-26-2023 End: 10-26-2023 Patient encounter procedure [facility] Work Phone: Start: 10-09-2023 Non-patient / Non-visit [facility] Work Phone: Start: 10-04-2023 End: 10-04-2023 Patient encounter procedure [facility] Work Phone: Start: 10-04-2023 Non-patient / Non-visit [facility] Work Phone: Start: 10-04-2023 End: 10-04-2023 ambulatory [facility] Start: 09-14-2023 End: 09-14-2023 Office outpatient visit 15 minutes Alok Webber DO Work Phone: [facility] Comment on above: Atherosclerosis of n ative coronary artery of [place] heart without angina pectoris; Essential hypertension, benign; Mixed hyperlipidemia; Ischemic cardiomyopathy; Past myocardial infarction; Moderate chronic obstructive pulmonary disease (CMS/HCC); Obesity (BMI 35.0-39.9 without comorbidity); Current smoker Start: 09-03-2023 End: 09-03-2023 ambulatory Brock Modi Other [employer] Other Start: 09-03-2023 Telephone encounter Brock oMdi [facility] Start: 08-24-2023 Orders Only Kendal Carmen LPN [facility] Comment on above: Abdominal aortic ane urysm (AAA) without rupture, unspecified part (CMS-HCC) (Primary Dx); Obstructive chronic bronchitis with exacerbation (CMS-HCC); Obesity with body mass index (BMI) of 30.0 to 39.9 Start: 08-06-2023 End: 08-06-2023 ambulatory Brock Modi Other [employer] Other Start: 08-06-2023 Office outpatient vi sit 15 minutes Brock Modi [facility] Start: 08-06-2023 End: 08-06-2023 Patient encounter procedure [facility] Work Phone: Start: 08-05-2023 End: 08-05-2023 ambulatory Brock Modi Other [employer] Other Start: 08-05-2023 Telephone encounter Brock Ly [facility] Start: 08-05-2023 End: 08-05-2023 Office outpatient visit [...] 07-16-2023 End: 07-16-2023 ambulatory Brock Modi Other [employer] Other Start: 07-16-2023 Telephone encounter Brock Modi [facility] Start: 06-24-2023 End: 06-24-2023 ambulatory Brock Ly Other [employer] Other Start: 06-24-2023 Office outpatient vi sit 15 minutes Brock Modi [facility] Start: 04-07-[address] Alok Webber Facility: Start: 04-02-2023 End: 04-02-2023 ambulatory Brock oMdi Other [employer] Other Start: 04-02-2023 Telephone encounter Brock Ly [facility] Start: 03-19-2023 End: 03-19-2023 ambulatory Brock Modi Other [employer] Other Start: 03-19-2023 Telephone encounter Brock Modi [facility] Start: 03-16-2023 End: 03-16-2023 ambulatory Brock Ly Other [employer] Other Start: 03-16-2023 Office outpatient vi sit 15 minutes Brock Modi [facility] Start: 02-04-2023 End: 02-04-2023 ambulatory Brock Ly Other [employer] Other Start: 02-04-2023 Office outpatient vi sit 15 minutes Brock Modi [facility] Start: 01-29-2023 End: 01-29-2023 ambulatory Viral Yang Other [employer] Other Start: 01-29-2023 Telephone encounter Viral Yang [facility] Start: 01-27-2023 Rx Renewal Brock Modi Work Phone: [facility] [address] DO Work Phone: Start: 01-19-2023 Patient encounter procedure Brock Modi Work Phone: [facility] [address] [place] Work Phone: Start: 01-14-2023 End: 01-14-2023 ambulatory Brock Modi Other [employer] Other Start: 01-14-2023 Telephone encounter Brock Modi [facility] Start: 12-24-2022 Office outpatient vi sit 40 minutes Brock Modi Work Phone: [facility] [address] DO Work Phone: Start: 12-24-[address] Alok chauhan Akbar Facility: Start: 12-04-2022 End: 12-04-2022 ambulatory Brock Modi Other [employer] Other Start: 12-04-2022 Telephone encounter Brock Modi [facility] Start: 12-03-2022 End: 12-03-2022 ambulatory Brock Modi Other [employer] Other Start: 12-03-2022 Telephone encounter Brock Ly [facility] Start: 11-27-2022 End: 11-27-2022 ambulatory Wagner Marrufo Other [employer] Other Start: 11-27-2022 Office outpatient vi sit 25 minutes Wagner Marrufo [facility] Start: 11-12-2022 End: 11-12-2022 ambulatory Brock Modi Other [employer] Other Start: 11-12-2022 Office outpatient vi sit 15 minutes Brock Modi [facility] Start: 11-04-2022 ambulatory JANINE Burton ty:H1 Start: 11-03-2022 End: 11-03-2022 Patient encounter procedure MD Brock Modi Work Phone: [facility] [place] Work Phone: Start: 11-03-2022 End: 11-03-2022 ambulatory MD Brock Modi Work Phone: [facility] Work Phone: Start: 11-02-2022 Patient encounter procedure Brock Modi Work Phone: [facility] 250 DO Work Phone: Start: 11-02-2022 ambulatory Janine Cunha Facility:1 [id number] Start: 10-29-2022 Chart Update Brock Modi Work Phone: [facility] 600 DO Work Phone: Start: 10-28-2022 End: 10-28-2022 ambulatory MD Brock Modi Work Phone: [facility] Work Phone: Start: 10-28-2022 End: 10-28-2022 Patient encounter procedure MD Brock Modi Work Phone: [facility]Lab [facility] [place] Work Phone: Start: 10-27-2022 End: 10-27-2022 ambulatory Brock Modi Other [facility] [employer] Other Start: 10-27-2022 Telephone encounter Brock BURGESS [facility] Start: 10-21-2022 Transitional care juan diego neri srvc 14 day discharge Brock Modi Work Phone: [facility] 250 DO Work Phone: Start: 10-21-2022 End: 10-21-2022 ambulatory Janine Cunha [facility] [employer] Other Start: 10-21-2022 Telephone encounter Adi Campos [facility] [employer] Start: 10-20-2022 End: 10-20-2022 ambulatory Adi Campos Other [facility] [employer] Other Start: 10-20-2022 Office outpatient ne w 45 minutes Adi Campos [facility] Start: 10-15-2022 End: 10-15-2022 ambulatory Brock Modi Other [employer] Other Start: 10-15-2022 Office outpatient vi sit 15 minutes Brock Modi [facility] Start: 10-10-[address] Brock Modi Facility:[id number] Start: 10-10-2022 End: 10-13-2022 Evaluation and management of inpatient MD Brock Modi Work Phone: [facility] [employer] Work Phone: Start: 10-10-2022 End: 10-10-2022 ambulatory COLIN TREADWELL Facility:H1 Start: 09-09-2022 Office outpatient ne w 45 minutes Wagner Marrufo [facility] [place] [facility] Start: 09-09-2022 End: 09-09-2022 ambulatory DO Wagner Marrufo Work Phone: [facility] Work Phone: Start: 09-09-2022 End: 09-09-2022 Patient encounter procedure DO Wagner Marrufo Work Phone: [facility] [place] [facility] Start: 09-07-2022 End: 09-08-2022 ambulatory COLIN TREADWELL Facility:H1 Start: 08-13-2022 End: 08-13-2022 ambulatory Brock Modi Other [employer] Other Start: 08-13-2022 Office outpatient vi sit 15 minutes Brock Modi [facility] Start: 08-10-2022 End: 08-11-[address] BROCK MODI Facility:H1 Start: 07-30-2022 End: 07-30-2022 ambulatory Brock Modi Other [employer] Other Start: 07-30-2022 Office outpatient vi sit 25 minutes Brock Modi [facility] Start: 07-28-2022 End: 07-28-2022 ambulatory Brock Modi Other [employer] Other Start: 07-28-2022 Telephone encounter Brock Modi [facility] Start: 07-10-2022 End: 07-11-[address] CAR LIGHT Facility:H1 Start: 07-08-2022 End: 07-08-[address] JANELLE Moser Facility:H1 Start: 07-05-2022 End: 07-05-[address] RUBÉN DALY Facility:H1 Start: 07-03-2022 End: 07-04-[address] ARLIN CUNHA Facility:H1 Start: 02-03-2022 End: 02-03-[address] ARLIN CUNHA Facility:H1 Patient encounter status Brock Modi Work Phone: [facility] [address] DO Work Phone: Procedures Date Procedure Procedure Detail Performing Clinician Start: 09-20-2024 Ecg routine ecg w/le ast 12 lds w/i&r Alok Webber DO Work Phone: Start: 09-11-2024 CT ANGIO ABDOMEN PELVIS Rom Pierre MD Work Phone: Start: 11-03-2022 CT of thorax with contrast MD Brock Modi Work Phone: Start: 10-11-2022 Plain chest X-ray MD Juan Diego Moid Work Phone: Start: 10-10-2022 CL LHC & COR Angio MD Rahat Modi Work Phone: Start: 10-10-2022 CL Stent 1st Vessel CX ANTONOI MD Brock Modi Work Phone: Start: 10-10-2022 [...] procedure 09/20/2025 11:30 AM EST Office Visit [facility] [address] [place] [id number] Alok Webber DO [address] [place] [address] [facility] Start: 09-14-2025 Adult BMI Screening Adult BMI Screening [facility] Start: 09-14-2025 Tobacco Screening Tobacco Screening [facility] Start: 2025 Pneumococcal Vaccine: Pediatrics (0 to 5 Years) and At-Risk Patients (6 to 64 Years) (3 - PPSV23 or PCV20) Pneumococcal Vaccine: Pediatrics (0 to 5 Years) and At-Risk Patients (6 to 64 Years) (3 - PPSV23 or PCV20) [facility] Start: 03-09-2025 Adult BMI Screening Adult BMI Screening [facility] Start: 03-09-2025 Tobacco Screening Tobacco Screening [facility] Start: 09-20-2024 End: 09-20-2025 Alanine aminotransferase [Enzymatic activity/volume] in Serum or Plasma by With P-5'-P Alanine Aminotransferase Lab Routine Mixed hyperlipidemia Expected: 09/20/2024 (Approximate), Expires: 09/20/2025 [facility] Work Phone: Comment on above: Expected: 09/20/2024 (Approximate), Expi res: 09/20/2025 Start: 09-20-2024 End: 09-20-2025 Aspartate aminotransferase [Enzymatic activity/volume] in Serum or Plasma by With P-5'-P Aspartate Aminotransferase Lab Routine Mixed hyperlipidemia Expected: 09/20/2024 (Approximate), Expires: 09/20/2025 [facility] Work Phone: Comment on above: Expected: 09/20/2024 (Approximate), Expi res: 09/20/2025 Start: 09-20-2024 End: 09-20-2025 C reactive protein [Mass/volume] in Serum or Plasma by High sensitivity method C-Reactive Protein, High Sensitivity Lab Routine Atherosclerosis of [place] coronary artery of [place] heart without angina pectoris Ischemic cardiomyopathy Past myocardial infarction Mixed hyperlipidemia Essential hypertension Expected: 09/20/2024 (Approximate), Expires: 09/20/2025 [facility] Work Phone: Comment on above: Expected: 09/20/2024 (Approximate), Expi res: 09/20/2025 Start: 09-20-2024 End: 09-20-2025 Complete Pulmonary Function Test (Spirometry/DLCO/Lung Volumes) Complete Pulmonary Function Test (Spirometry/DLCO/Lung Volumes) PFT Routine Lung mass Expected: 09/20/2024 (Approximate), Expires: 09/20/2025 [employer] Work Phone: Comment on above: Expected: 09/20/2024 (Approximate), Expi res: 09/20/2025 Start: 09-20-2024 End: 09-20-2025 Lipid 1996 panel - Serum or Plasma Lipid Panel Lab Routine Mixed hyperlipidemia Expected: 09/20/2024 (Approximate), Expires: 09/20/2025 [facility] Work Phone: Comment on above: Expected: 09/20/2024 (Approximate), Expi res: 09/20/2025 Start: 09-20-2024 End: 09-20-2025 XR Chest 2 Views XR chest 2 views Imaging Routine Lung mass Expected: 09/20/2024 (Approximate), Expires: 09/20/2025 [facility] Work Phone: Comment on above: Expected: 09/20/2024 (Approximate), Expi res: 09/20/2025 Start: 09-20-2024 End: 09-20-2024 Patient encounter procedure 09/20/2024 9:00 AM EST Office Visit [facility] [address] [place] [address] Alok Webber DO [address] [place] [address] [facility] Start: 09-09-2024 End: 09-09-2024 CTA Abdominal vessels and Pelvis vessels W contrast IV CT angiogram abdomen and pelvis Imaging Routine Infrarenal Abdominal Aortic Aneurysm (Aaa) Without Rupture (Cms-Hcc) Expected: 09/09/2024 (Approximate), Expires: 09/09/2024 [facility] Phone: Comment on above: Expected: 09/09/2024 (Approximate), Expi res: 09/09/2024 Start: 08-05-2024 Adult BMI Screening Adult BMI Screening [facility] Start: 08-05-2024 Tobacco Screening Tobacco Screening [facility] Start: 03-26-2024 COVID-19 Vaccine () COVID-19 Vaccine () [facility] Start: 03-26-2024 Influenza vaccination [facility] Start: 03-09-2024 End: 03-09-2025 Echo complete W/O contrast Echo complete W/O contrast Echocardiography Routine Infrarenal abdominal aortic aneurysm (AAA) without rupture (CMS-HCC) Bilateral carotid bruits Cigarette smoker Expected: 03/09/2024, Expires: 03/09/2025 [facility] Comment on above: Expected: 03/09/2024, Expires: Start: 03-09-2024 End: 03-09-2025 US Carotid arteries - bilateral Vas carotid duplex bilateral Vascular Ultrasound Routine Bilateral carotid bruits Expected: 03/09/2024, Expires: 03/09/2025 [facility] Comment on above: Expected: 03/09/2024, Expires: Start: 02-17-2024 End: 02-17-2024 Patient encounter procedure 02/17/2024 10:10 AM EDT [facility] [address] [place] [address] Rom Pierre MD [address], [address] [address] [facility] Start: 09-05-2023 Tobacco Counseling Tobacco Counseling [facility] Start: 08-24-2023 End: 08-24-2024 CTA Abdominal vessels and Pelvis vessels W contrast IV CT angiogram abdomen and pelvis Imaging Routine Abdominal Aortic Aneurysm (Aaa) Without Rupture, Unspecified Part (Cms-Hcc) Obstructive chronic bronchitis with exacerbation ([facility]-HCC) Obesity with body mass index (BMI) of 30.0 to 39.9 Expected: 08/24/2023, Expires: 08/24/2024 [employer] Work Phone: Comment on above: Expected: 08/24/2023, Expires: 5 Start: 08-22-2023 End: 08-22-2024 CTA Abdominal vessels and Pelvis vessels W contrast IV CT angiogram abdomen and pelvis Imaging Routine Abdominal Aortic Aneurysm (Aaa) Without Rupture, Unspecified Part (Cms-Hcc) Obstructive chronic bronchitis with exacerbation ([facility]-HCC) Obesity with body mass index (BMI) of 30.0 to 39.9 Chronic obstructive pulmonary disease, unspecified COPD type (CMS-HCC) Expected: 08/22/2023, Expires: 08/22/2024 [employer] Phone: Comment on above: Expected: 08/22/2023, Expires: Start: 05-02-2023 Pneumococcal vaccination Pneumococcal Vaccine (3 of 3 - PCV20 or PCV21) [facility] Start: 04-07-2023 FUV, Provider: Alok Webber, Status: Pen, Time: 11:20 AM FUV, Provider: Alok Webber, Status: Pen, Time: 11:20 AM [facility] [employer] [employer] 250 DO Work Phone: Start: 03-26-2023 Influenza vaccination [facility] Start: 01-19-2023 FUV, Provider: Aolk Webber, Status: Pen, Time: 2:30 PM FUV, Provider: Alok Webber, Status: Pen, Time: 2:30 PM [facility] [employer] [address] DO Work Phone: Start: 11-02-2022 HOLTER 48, Provider: VERONICA LANGLEY MIXING TANK OPERATOR 1,[id number], Status: Pen, Time: 2:30 PM HOLTER 48, Provider: VERONICA LANGLEY MIXING TANK OPERATOR 1,[id number], Status: Pen, Time: 2:30 PM [facility] [address] DO Work Phone: Start: 10-13-2022 [facility] Start: 10-10-2022 Fluoroscopy of Multiple Coronary Arteries using Low Osmolar Contrast Fluoroscopy of Multiple Coronary Arteries using Low Osmolar Contrast [facility] Start: 10-10-2022 Measurement of Cardiac Sampling and Pressure, Left Heart, Percutaneous Approach Measurement of Cardiac Sampling and Pressure, Left Heart, Percutaneous Approach [facility] Start: 10-10-2022 Hospital admission [facility] Start: 10-10-2022 [facility] Start: 10-10-2022 Hospital admission [facility] Start: 10-10-2022 [facility] Start: 2020 RSV High Risk: (Elderly (60+) or Population) (1 - Risk 60-74 years 1-dose series) RSV High Risk: (Elderly (60+) or Population) (1 - Risk 60-74 years 1-dose series) [facility] Start: 2010 Administration of varicella zoster vaccine Zoster (Shingles) Vaccine (1 of 2) [facility] Start: 2010 Zoster Vaccines (1 of 2) Zoster Vaccines (1 of 2) [facility] Start: 1982 DTaP/Tdap/Td Vaccines (1 - Tdap) DTaP/Tdap/Td Vaccines (1 - Tdap) [facility] Start: 1979 DTaP,Tdap and Td Vaccines (1 - Tdap) DTaP,Tdap and Td Vaccines (1 - Tdap) [facility] Start: 1978 Adult BMI Follow Up Plan Adult BMI Follow Up Plan [facility] Start: 1978 Diabetes mellitus screening Diabetes Screening [facility] Start: 1978 Hepatitis C screening Hepatitis C Screening [facility] Start: 1972 Depression Screening Depression Screening [employer] Start: 1961 MMR Vaccines (1 of 1 - Standard series) MMR Vaccines (1 of 1 - Standard series) [facility] Start: 1960 COVID-19 Vaccine (#1) COVID-19 Vaccine (#1) [facility] Start: 1960 HIV screening HIV Screening [facility] Start: 1960 Lipid panel Lipid Panel [facility] Start: 1960 Screening for malignant neoplasm of colon [facility] Start: 1960 Tobacco Counseling Tobacco Counseling [employer] Start: 1960 Yearly Adult Physical Yearly Adult Physical [facility] End: 08-22-2024 Creatinine includes GFR, serum Creatinine includes GFR, serum Lab Routine Abdominal Aortic Aneurysm (Aaa) Without Rupture, Unspecified Part (Cms-Hcc) Obstructive chronic bronchitis with exacerbation (CMS-HCC) Obesity with body mass index (BMI) of 30.0 to 39.9 Chronic obstructive pulmonary disease, unspecified COPD type (CMS-HCC) 1 Occurrences starting 08/22/2023 until 08/22/2024 [employer] Comment on above: 1 Occurrences starting 08/22/2023 until 08/22/2024 End: 08-24-2024 Creatinine includes GFR, serum Creatinine includes GFR, serum Lab Routine Abdominal Aortic Aneurysm (Aaa) Without Rupture, Unspecified Part (Cms-Hcc) Obstructive chronic bronchitis with exacerbation (CMS-HCC) Obesity with body mass index (BMI) of 30.0 to 39.9 1 Occurrences starting 08/24/2023 until 08/24/2024 [employer] Work Phone: Comment on above: 1 Occurrences starting 08/24/2023 until 08/24/2024 End: 03-09-2025 Creatinine includes GFR, serum Creatinine includes GFR, serum Lab Routine Infrarenal abdominal aortic aneurysm (AAA) without rupture (CMS-HCC) 1 Occurrences starting 03/09/2024 until 03/09/2025 [employer] Comment on above: 1 Occurrences starting 03/09/2024 until 03/09/2025 Patient Education Coronary Angio plasty (DC) Coronary Stenting (DC) Angina (DC) Chest Pain (DC) Drug Eluting Stents [facility] Work Phone: Patient referral [facility] Work Phone: US Lower extremity v ein - right [facility] Immunizations Immunization Date Immunization Notes Care Provider Fa cility 05-02-2018 pneumococcal Conjuga te, unspecified formulation; Translations: [Need for prophylactic vaccination against Streptococcus pneumoniae (pneumococcus)] Brock Modi Other [employer] Other 05-02-2018 pneumococcal polysaccharide vaccine, 23 valent Brock Modi Work Phone: [facility] 05-26-2017 pneumococcal conjuga te vaccine, 13 valent Brock Modi Work Phone: [facility] Payers Date Payer Category Payer Medicaid [id number] 2022 Medicaid [id number] 2022 Self-pay 2021 Private Health Insurance [employer] [id number] 2019 Unknown 1960 Unknown [id number] 2.16840.1.139733.3.579.2. 593 1960 Unknown [id number] 2.16.840.1.327419.3.579.2. 593 1960 Unknown [id number] 2.16.840.1.096914.3.579.2. 593 1960 Unknown [id number] 2.16.840.1.165655.3.579.2. 593 1960 Unknown [id number] 2.16.840.1.041667.3.579.2. 593 1960 Unknown [id number] 2.16.840.1.819520.3.579.2. 593 1960 Unknown [id number] 2.16.840.1.798850.3.579.2. 593 1960 Unknown [id number] 2.16.840.1.281725.3.579.2. 593 1960 Unknown [id number] 2.16.840.1.788890.3.579.2. 593 1960 Unknown [id number] 2.16.840.1.519294.3.579.2. 356 1960 Unknown [id number] 2.16.840.1.676059.3.579.2. 356 1960 Unknown [id number] 2.16.840.1.506934.3.579.2. 356 1960 Unknown [id number] 2.16.840.1.775195.3.579.2. 356 1960 Unknown [id number] 2.16.840.1.531618.3.579.2. 356 1960 Unknown [id number] 2.16.840.1.668188.3.579.2. 1286 1960 Unknown [id number] 2.16.840.1.503242.3.579.2. 1286 1960 Unknown [id number] 2.16.840.1.121108.3.579.2. 1286 1960 Unknown [id number] 2.16.840.1.479752.3.579.2. 1286 1960 Unknown [id number] 2.16.840.1.730770.3.579.2. 1286 1960 Unknown [id number] 2..840.1.790485.3.579.2. 1286 1960 Unknown [id number] 2.16.840.1.162932.3.579.2. 1244 1959 Unknown [id number] 2..840.1.941677.19 Unknown [id number] 2.840.1.308334.3.579.2. 531 Social History Date Type Detail Facility Tobacco smoking stat [facility] Unknown if ever smoked [facility] Work Phone: Start: 1960 Sex Assigned At Male F [facility] Start: 08-06-2023 End: 09-20-2024 Sex Assigned At Dishable Other Start: 10-10-2022 End: 10-10-2022 Tobacco smoking status MDIS Smoker (finding) [facility] Start: 08-06-2023 End: 09-20-2024 Daily caffeine consumption Daily caffeine consumption -[facility] DO Work Phone: Comment on above: 1/2 gallon coffee da darrion; 5-6 cig daily; 8 cigs daily; Start: 09-14-2023 End: 09-20-2024 Tobacco smoking status [facility] Smokes tobacco daily [facility] Start: 08-08-1991 History of tobacco use Cigarette Smo ker [facility] Start: 09-14-2023 End: 09-20-2024 Alcohol intake Lifetime non-drinker (finding) [facility] Start: 1960 Sex Assigned At Not on file P [facility] Start: 09-04-2023 End: 09-20-2024 Exposure to SARS-CoV-2 (event) Not sure [facility] Start: 08-26-2022 End: 09-20-2024 Tobacco use and exposure Smokeless tobacco non-user [facility] Within the past 12 months we worried whether our food would run out before we got money to buy more. Never [facility] Start: 08-26-2022 Tobacco Comment pack and a nathanael f a day pt reports he is really trying to quit 09/04/21 [facility] Start: 08-01-2021 Sex Male (finding) [facility] Medical Equipment Procedure Code Equipment Code Equipment Origin al Text Equipment Identifier Dates Drug-eluting coronary artery stent, wmp-tficjkfiedjtf-vq lymer-coated ()[id number] FDA Start: 10-10-2022 Drug-eluting coronary artery stent, xmu-jsagfywesvyeq-fi lymer-coated ()[id number] [id number] FDA Start: 10-10-2022 Drug-eluting coronary artery stent, yxe-qplvshynqjtez-ca lymer-coated ()[id number] [id number] FDA Start: 10-10-2022 Goals Date Patient Goal Desired Activity /State Functional Status Date Assessment Result Facility 10-13-2022 Functional status Patient at Baseline [facility] Work Phone: Mental Status Date Assessment Result Facility 10-13-2022 Cognitive function Cognitive Sta tus Patient at Baseline [facility] Work Phone: Clinical Notes 07-30-2022 to 09-20-2024 Alok eWbber DO - 09/20/2024 9:00 AM ESTPatient InstructionsAttachmentsAssessment [...] an echocardiogram was performed last week at [place] or [place], read by outside physician, with normal left [...] 1. Preop cardiovascular exam 2. Atherosclerosis of [place] coronary artery of [place] heart without angina pectoris Follow Up In [...] discussion and plan. documented in this encounter [facility] Work Phone: 09-20-2024 Instructions Kate Cruz LPN [...] be sent through Care Everywhere.Heart Healthy Diet (Yoruba)documented in this encounter [facility] Work Phone: 09-14-2024 Evaluation + Plan note Associated Problem(s): Bilateral carotid bruits Carotid stenosis mild bilaterally S medical therapy. He is on aspirin statin and Plavix. We will continue those. [facility] 09-14-2024 Miscellaneous Notes Associated Problem(s): Bilateral carotid [...] proceed with repair. documented in this encounter [facility] 09-14-2024 Evaluation + Plan note Associated Problem(s): Cigarette smoker motivated to quit Counseled him for at least 3 minutes he is willing to quit [facility] 09-14-2024 Evaluation + Plan note Associated Problem(s): AAA (abdominal aortic aneurysm) without rupture (CMS-HCC) I discussed with him the finding in the CT scan. Discussed different options and he would like to proceed with repair. [facility] 09-14-2024 History of Present illness Narrative [...] History: Diagnosis Date AAA (abdominal aortic aneurysm) ([facility]) Allergic Past Surgical History: No past [...] List AAA (abdominal aortic aneurysm) without rupture ([facility]) - Primary Current Assessment & Plan [...] seen today for aaa, ct abd/pelvis at [facility]. Diagnoses and all orders for this visit: Infrarenal abdominal aortic aneurysm (AAA) without rupture ([facility]) Cigarette smoker motivated to quit Bilateral carotid bruits Rom Pierre MD, GHANSHYAM, RPVI, FSVS, FACS [facility] This note was created with the assistance of a speech recognition program. While intending to generate a timely document that accurately reflects the content of the visit, no guarantee can be provided that every grammatical or spelling mistake has been or will be identified or corrected. Thank you for your understanding. documented in this encounter [facility] 09-14-2024 Instructions Rom Pierre MD - 09/14/2024 10:40 AM EST Are You Ready To Kick The Habit? Free Tobacco Cessation Resources [facility] Services [facility] Tobacco Treatment Centers provide all employees with free tobacco cessation services that include: Counseling to understand nicotine addiction Education about medications that can help you successfully quit Assistance with developing a plan to quit Call to set up an individual appointment or find out when group classes will be held: [facility]: [phone] [facility]: [phone] [facility]: [phone] [facility]: [phone] Quit Smoking Action Plan and Resources [facility] offers an eight-week, online smoking cessation plan to all [facility] employees, regardless of whether [place] is your medical insurance provider. Go to www.ozukeca.org/employeewell ness and click the Health Risk Assessment and Resources link to get started. In the Nnnju4Bjkghz menu, click Action Plans instead of Health Risk Assessment to access the Quit Smoking Action Plan. Additional smoking cessation resources are also available to all [facility] employees on the Zssqc8Pahuwz web page at www.Perzo/quit smoking. [place] Tobacco Cessation Program If [place] is your medical insurance provider, there are more free resources available to you, including: No copays or deductibles on local tobacco cessation counseling services to help you quit Prescription assistance for tobacco cessation medications to help you quit For details about the tobacco cessation program available to [place] members, go to www.[employer] (Search: Tobacco Cessation Program). [place] Tobacco Quit Line 5-543-VUSY-NOW ( ) is a toll-free, telephonic service that helps [place] residents quit smoking and using tobacco. It is staffed by experts who tailor a quit plan for you and provide you with advice. [place] Tobacco Quit Line 5-516-KDWH-NOW ( ) is a toll-free, telephonic service that helps [place] residents quit smoking and using tobacco. It is staffed by experts who tailor a quit plan for you and provide you with advice. Two weeks of nicotine replacement therapy may be provided at no charge, if needed. Additional Resources These national organizations also offer free information and resources to help you quit tobacco: [place] Cancer Society--www.cancer.org/healthy/ stayawayfromtobacco [place] Heart Association--www.heart.org (Search: Quit Smoking) Centers for Disease Control and Prevention--www.cdc.gov/tobacco [place] Lung Association--www.lungusa.org documented in this encounter [facility] 03-09-2024 Evaluation + Plan note Associated Problem(s): Cigarette smoker Counseled on smoking cessation at length. [facility] 03-09-2024 Evaluation + Plan note Associated Problem(s): Bilateral carotid bruits Best medical therapy and smoking cessation.Carotid duplex ultrasound [facility] 03-09-2024 Miscellaneous Notes Associated Problem(s): Cigarette smoker [...] cessation in length. documented in this encounter [facility] 03-09-2024 Evaluation + Plan note Associated Problem(s): AAA (abdominal aortic aneurysm) without rupture (CMS-HCC) 5.2 cm infrarenal abdominal aortic aneurysm. We discussed different options. He would like to repeat his scan in 6 months. Continue to smoke. I counseled him on smoking cessation in length. [facility] 03-09-2024 History of Present illness Narrative Images [...] History: Diagnosis Date AAA (abdominal aortic aneurysm) (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 Diagnoses and all orders for this visit: Infrarenal abdominal aortic aneurysm (AAA) without rupture ([facility]) - CT angiogram abdomen and pelvis; [...] Rom Pierre MD, GHANSHYAM, RPVI, FSVS, FACS [facility] This note was created with the assistance of a speech recognition program. While intending to generate a timely document that accurately reflects the content of the visit, no guarantee can be provided that every grammatical or spelling mistake has been or will be identified or corrected. Thank you for your understanding. documented in this encounter [facility] 03-09-2024 Instructions Rom Pierre MD - 03/09/2024 10:20 AM EDT Are You Ready To Kick The Habit? Free Tobacco Cessation Resources [facility] Tobacco Treatment Center Services [facility] Tobacco Treatment Centers provide all employees with free tobacco cessation services that include: Counseling to understand nicotine addiction Education about medications that can help you successfully quit Assistance with developing a plan to quit Call to set up an individual appointment or find out when group classes will be held: [facility]: [phone] [facility]: [phone] [facility]: [phone] [facility]: [phone] Quit Smoking Action Plan and Resources [facility] offers an eight-week, online smoking cessation plan to all [facility] employees, regardless of whether [place] is your medical insurance provider. Go to www.mypromedica.org/employeewell ness and click the Health Risk Assessment and Resources link to get started. In the Rhqth9Hdrajo menu, click Action Plans instead of Health Risk Assessment to access the Quit Smoking Action Plan. Additional smoking cessation resources are also available to all [facility] employees on the Gqlbw6Ybaylr web page at www.[employer]/quit smoking. [place] Tobacco Cessation Program If [place] is your medical insurance provider, there are more free resources available to you, including: No copays or deductibles on local tobacco cessation counseling services to help you quit Prescription assistance for tobacco cessation medications to help you quit For details about the tobacco cessation program available to [place] members, go to www.Perzo (Search: Tobacco Cessation Program). [place] Tobacco Quit Line 0-822-BVHU-NOW ( ) is a toll-free, telephonic service that helps [place] residents quit smoking and using tobacco. It is staffed by experts who tailor a quit plan for you and provide you with advice. [place] Tobacco Quit Line 1-983-PDWK-NOW ( ) is a toll-free, telephonic service that helps [place] residents quit smoking and using tobacco. It is staffed by experts who tailor a quit plan for you and provide you with advice. Two weeks of nicotine replacement therapy may be provided at no charge, if needed. Additional Resources These national organizations also offer free information and resources to help you quit tobacco: [place] Cancer Society--www.cancer.org/healthy/ stayawayfromtobacco [place] Heart Association--www.heart.org (Search: Quit Smoking) Centers for Disease Control and Prevention--www.cdc.gov/tobacco [place] Lung Association--www.lungusa.org documented in this encounter [facility] 09-14-2023 History of Present illness Narrative Subjective [...] Disp: , Rfl: Assessment/Plan 1. Atherosclerosis of [place] coronary artery of [place] heart without angina pectoris 2. Essential hypertension, [...] discussion and plan. documented in this encounter [facility] Work Phone: 09-14-2023 Instructions Kate Cruz LPN [...] instructions on exercise. documented in this encounter [facility] Work Phone: 08-06-2023 Evaluation note Encounter Date [...] 6 months with imaging at that time. Dishable Other 01-11-2024 History of Present illness Narrative* [...] aortic aneurysm (AAA) without rupture, unspecified part ([facility]) - [facility] - [place], [place] - CT angiogram abdomen and pelvis; Future - Creatinine includes GFR, serum; Future Obstructive chronic bronchitis with exacerbation ([facility]) - CT angiogram abdomen and pelvis; Future - Creatinine includes GFR, serum; Future Obesity with body mass index (BMI) of 30.0 to 39.[address] angiogram abdomen and pelvis; Future - Creatinine includes GFR, serum; Future Chronic obstructive pulmonary disease, unspecified COPD type ([facility]) - CT angiogram abdomen and pelvis; Future - Creatinine includes GFR, serum; Future Patient with infrarenal abdominal aortic aneurysm. His most recent duplex ultrasound shows 5.2 cm and that was in June of 2023. At this point I will see him back in 6 months with a follow-up CT angiogram. [facility] note* Encounter Date Diagnosis Assessment Notes Treatment Notes Treatment Clinical Notes Jun, Abdominal aortic aneurysm (AAA) without rupture, unspecified part (ICD-10 - I71.40) [facility] Other 11-30-2023 Evaluation note* Encounter Date Diagnosis Assessment Notes Treatment Notes Treatment Clinical Notes May, Abdominal aortic aneurysm (AAA) without rupture, unspecified part (ICD-10 - I71.40) Pt requests order as he is overdue for recheckUS. May, Bronchitis (ICD-10 - J40) Finish meds and treatment plan ordered by ER recently. Pt understands as he is improving. Dishable Other 08-25-2023 Evaluation note* Encounter Date Diagnosis Assessment Notes Treatment Notes Treatment Clinical Notes Feb, Acute cystitis without hematuria (ICD-10 - N30.00) Dishable Other 08-22-2023 Evaluation note* Encounter Date Diagnosis Assessment Notes Treatment Notes Treatment Clinical Notes Feb, Penile discharge (ICD-10 - R36.9) Pt request STI testing Feb, Dysuria (ICD-10 - R30.0) Rule out UTI based on symptoms. Will call w mohsen. Push fluids. Feb, Chronic obstructive pulmonary disease, unspecified (ICD-10 - J44.9) Clinical diagnosis secondary to [id number] history of tobacco abuse. He will need PFTs in the future. Discussed missed appts w Dr. Campos and sleep lab. He states he will not followup there as he doesn't want to do a lung biopsy. His resp symptoms are improved overall. He expresses understanding on the severity of his condition and he chooses not to followup. Dishable Other 07-13-2023 Evaluation note* Encounter Date Diagnosis Assessment Notes Treatment Notes Treatment Clinical Notes Jan, COPD, moderate (ICD-10 - J44.9) Reminded him to keep appt w Dr. Campos on 02/10. Continue home medications. Avoid going outside with there is haze. Jan, Other sleep disorders (ICD-10 - G47.8) Gave number for the [facility] Sleep lab. He missed his last appt as his daughter had COVID. He will call to reschedule. Dishable Other 07-07-2023 Evaluation note* Encounter Date Diagnosis Assessment Notes Treatment Notes Treatment Clinical Notes Jan, Situational anxiety (ICD-10 - F41.8) Dishable Other 05-11-2023 Evaluation note* Encounter Date Diagnosis Assessment Notes Treatment Notes Treatment Clinical Notes November, Situational anxiety (ICD-10 - F41.8) Dishable Other 05-05-2023 Evaluation note* Encounter Date Diagnosis [...] offered as well as the national Quitline 3-670-XHZJ-NOW. We have discussed pharmacologic treatment including nicotine replacement therapy which can lead to a positive nicotine test as well as nicotine free medications both of which will need to be managed by their PCP. We have provided handout for the [facility] Tobacco Cessation Program. This discussion was limited to 5 minutes. Dishable Other 04-20-2023 Evaluation note* Encounter Date Diagnosis Assessment Notes Treatment Notes Treatment Clinical Notes Oct, Chronic obstructive pulmonary disease, unspecified COPD type (ICD-10 - J44.9) Will resume inhalers as prescribed. Keep appt w Dr. Campos. Notes frequent dyspnea, agrees to a prednisone course. Oct, INOCENTE (obstructive sleep apnea) (ICD-10 - G47.33) I called [facility]. He has to meet with the sleep specialist before the test is done, even though it was already ordered. I gave him the date of the appt. I also ordered the test. Oct, Coronary artery disease involving k[place]enai heart without angina pectoris, unspecified vessel or lesion type (ICD-10 - I25.10) Continued followup w NO. Continue time off work until breathing status is improved. Dishable Other 03-28-2023 Evaluation note* Encounter Date Diagnosis Assessment Notes Treatment Notes Treatment Clinical Notes Sep, Chronic obstructive pulmonary disease, unspecified COPD type (ICD-10 - J44.9) Trelegy samples and training please Sep, Atelectasis of right lung (ICD-10 - J98.11) Please obtain any previous chest CT done at [place] in the past, and have them load onto our PACS Sep, Tobacco use disorder (ICD-10 - F17.200) Sep, Coronary artery disease involving [place] heart without angina pectoris, unspecified vessel or lesion type (ICD-10 - I25.10) Dishable Other 03-23-2023 Evaluation note* Encounter Date Diagnosis Assessment Notes Treatment Notes Treatment Clinical Notes Sep, Coronary artery disease involving k[place]ai coronary artery of [place] heart without angina pectoris (ICD-10 - I25.10) [...] needs a titration study at the least. Dishable Other 03-21-2023 Hospital Discharge instructions Additional Instructions [...] doctor or pharmacist, without first calling the brusher machine who implanted the stent. If you require [...] weight lifting, stair steppers, etc. until the brusher machine approves these activities. Check with the brusher machine on your first follow-up visit. CALL YOUR PHYSICIAN at [phone]: -If bleeding should occur from the catheter insertion site- apply pressure to the site then immediately call us. -Report any fever, redness, drainage, increased swelling, or firmness at the catheter insertion site. Some bruising or slight swelling may be present at the time of discharge. -Should arm or leg become cold, numb, white, or blue, contact the brusher machine immediately. -IF you should experience episodes of [...] is recommended. Please call Central Scheduling at [phone] to schedule your appointment.] The attending brusher machine or [facility] nurse clinician should provide you with specific [...] you to your next doctor's appointment.[facility] Work Phone: 1(262) 598-160703-21-2023 Progress note Author Rubén Tatum [facility] October 13, 2022 9:02am Note Date/Time October 13, 2022 9:0 2am [facility] [address] [place] [address] Cardiology Progress Note Signed Patient: Hector Gaspar MR#: [id number] : 1960 Acct:[id number] Age/Sex: 62 / M Adm Date: 3 Loc: 4 Room: [address] [place] [address] Type: ADM IN Attending Dr: Barbara Rivero [...] 5. Follow-up in [facility] within 10 days. From there strongly recommend referral to phase 2 monitored cardiac rehabilitation to which the patient is agreeable. (2) Heart block AV complete: Assessment/Problem Details: None further since withholding metoprolol tartrate. Code(s): I44.2 - Atrioventricular block, complete Status: Acute Plan: No indication/plan for permanent pacemaker at this point. No further beta- maryjnae. Plan for discharge to home as above. [...] Rubén Tatum MD> 10/13/22 0902 [facility] Work Phone: 1(979) 739-568203-20-2023 Progress note Author Barbara Rivero [facility] October 12, 2022 2:24pm Note Date/Time October 12, 2022 2:1 2pm [facility] [address] [place] [address] Hospitalist Progress Note Signed Patient: Hector Gaspar SR MR#: [id number] : 1960 Acct:[id number] Age/Sex: 62 / M Adm Date: 3 Loc: Room: [address] [place] [address] Type: ADM IN Attending Dr: Barbara Rivero [...] this time. (3) Ventricular tachycardia seen on bus monitor: Plan: No further episodes of ventricular [...] placement. Documented By: Barbara Rivero MD 10/12/22 1408 Signed By: <Electronically signed by Barbara Rivero MD> 10/12/22 9194 [facility] Work Phone: 1(122) 786-487503-20-2023 Progress note Author Rubén Tatum [facility] October 12, 2022 10:00am Note Date/Time October 12, 2022 9:5 9am [facility] [address] [place] [address] Cardiology Progress Note Signed Patient: Hector Gaspar SR MR#: [id number] : 1960 Acct:[id number] Age/Sex: 62 / M Adm Date: 3 Loc: 4P Room: [address] [place] [address] Type: ADM IN Attending Dr: Barbara Rivero [...] pacing device. (3) Ventricular tachycardia seen on bus monitor: Assessment/Problem Details: Stable no further wide-complex [...] Rubén Tatum MD> 10/12/22 1000 [facility] Work Phone: 1(168) 917-300803-19-2023 Progress note Author Barbara Rivero [facility] October 11, 2022 11:24am Note Date/Time October 11, 2022 11: 15am [facility] [address] [place] [address] Hospitalist Progress Note Signed Patient: Hector Gaspar SR MR#: [id number] : 1960 Acct:[id number] Age/Sex: 62 / M Adm Date: 3 Loc: Room: [address] [place] [address] Type: ADM IN Attending Dr: Barbara Rivero [...] smoking cessation. (3) Ventricular tachycardia seen on bus monitor: Plan: Patient given potassium and magnesium [...] signed by Barbara Rivero MD> 10/11/22 1121 [facility] Work Phone: 1(803) 664-628903-19-2023 Progress note Author Rubén Tatum [facility] October 11, 2022 9:41am Note Date/Time October 11, 2022 9:3 3am [facility] [address] [place] [address] Cardiology Progress Note Signed Patient: Hector Gaspar SR MR#: [id number] : 1960 Acct:[id number] Age/Sex: 62 / M Adm Date: 3 Loc: Room: [address] [place] [address] Type: ADM IN Attending Dr: Barbara Rivero [...] % (Auto) 63.8 Lymph % (Auto) 21.8 [place] % (Auto) 10.2 Eos % (Auto) 3.7 Baso % (Auto) 0.5 Nucleat RBC Rel Count 0.1 Neut # (Auto) 4.2 Lymph # (Auto) 1.4 [place] # (Auto) 0.7 Eos # (Auto) 0.2 [...] MPV Neut % (Auto) Lymph % (Auto) [place] % (Auto) Eos % (Auto) Baso % (Auto) Nucleat RBC Rel Count Neut # (Auto) Lymph # (Auto) [place] # (Auto) Eos # (Auto) Baso # [...] PCI with drug-eluting stent [facility] [facility] and codominant L PDA. [...] AV node (3) Ventricular tachycardia seen on bus monitor: Assessment/Problem Details: Not entirely certain that [...] Rubén Tatum MD> 10/11/22 0941 [facility] Work Phone: 1(785) 302-797903-18-2023 Progress note Author Barbara Rivero [facility] October 10, 2022 1:33pm Note Date/Time October 10, 2022 1:3 3pm [facility] [address] [place] [address] Event Note Signed Patient: Hector Gaspar SR MR#: [id number] : 1960 Acct:[id number] Age/Sex: 62 / M Adm Date: 3 Loc: Room: [address] [place] [address] Type: ADM IN Attending Dr: Barbara Rivero [...] by Barbara Rivero MD> 10/10/221332 [facility] Work Phone: 1(113) 535-117003-18-2023 History of Present illness Narrative* Patient presents to the office ambulatory with steady gait. * This is initial in clinic follow-up at [facility]. * October 10, 2022 transferred to [facility] from [facility] d/t NSTEMI. Managed by with uneventful [...] medication regimen. He denies medication side effects. [facility] 250 DO Work Phone: 1(489) 373-571003-18-2023 Procedure [facility]03-18-2023 Procedure [facility]03-18-2023 Consult note Author Rubén Tatum [facility] October 10, 2022 9:54am Note Date/Time October 10, 2022 9:5 1am [facility] [address] [place], [place] [id number] Cardiology Consult Note Signed Patient: Hector Gaspar SR MR#: [id number] : 1960 Acct:[id number] Age/Sex: 62 / M Adm Date: 3 Loc: Room: [address] [place] [address] Type: ADM IN Attending Dr: Barbara Rivero MD Copies to: MD Barbara Barry MD Stephen M Tann, MD~ Cardiology HPI History of Present Illness Consult Date: 10/10/22 Reason for Consult: Nausea, non-STEMI HPI: Mr. Gaspar is a 62 year old male with multiple cardiac risk factors but no known prior coronary heart disease who presented to [place] emergency department lastnight complaining of nausea x2 [...] consistent nausea ever since. He presented to [place] emergency department last evening with these complaints. In the ER at [place] ECG showed Q waves in the inferolateral [...] trend upward to 6000 and then greater [id number]. Echocardiogram at bedside this morning shows normal [...] negative unless noted below or in HPI [facility] Vaccinated for COVID-19?: No Medical History [...] Lymph # (Auto) 1.4 1.4 (1.00-4.8) x10E3/uL Latimer # (Auto) 0.6 0.6 (0.0-0.8) x10E3/uL Eos [...] signed by Rubén Tatum MD> 10/10/22 0954 [facility] Work Phone: 1(348) 481-530403-18-2023 History and physical note Author Galo Dent [facility] October 10, 2022 7:28am Note Date/Time October 10, 2022 7:2 8am [facility] [address] [place] [address] Hospitalist H&P Signed Patient: Hector Gaspar SR MR#: [id number] : 1960 Acct:[id number] Age/Sex: 62 / M Adm Date: 3 Loc: Room: [address] [place] [address] Type: ADM IN Attending Dr: Barbara Rivero MD Copies to: MD Barbara Barry MD Mushtaq Mahmood, MD~ HPI DATE OF EXAMINATION: 10/10/22 CHIEF COMPLAINT: Non-ST elevation [place] HISTORY OF PRESENT ILLNESS: Patient is a 62-year-old gentleman with history of hypertension, heavy smoking about 1-1/2 pack for 45 years, COPD, strong family history of coronary artery disease, came to us from [place] emergency department last night. Patient presented to [...] The ER physician did talk to the brusher machine here in [facility]. Patient was started on heparin drip, [...] % (Auto) 27.5 % (.) 10/10/22 06:10 Latimer % (Auto) 11.4 % (.) 10/10/22 06:10 Eos % (Auto) 4.4 % (.) 10/10/22 06:10 Baso % (Auto) 0.6 % (.) 10/10/22 06:10 Nucleat RBC Rel Count 0.1 /100 WBC (0-0.5) 10/10/22 06:10 Neut # (Auto) 2.9 x10E3/uL (1.8-7.7) 10/10/22 06:10 Lymph # (Auto) 1.4 x10E3/uL (1.00-4.8) 10/10/22 06:10 Latimer # (Auto) 0.6 x10E3/uL (0.0-0.8) 10/10/22 06:10 [...] Galo Dent MD> 10/10/22 0728 [facility] Work Phone: 1(664) 948-165402-15-2023 Evaluation note* Encounter Date Diagnosis Assessment Notes [...] in office today. Prior medical notes from [place] ED and history have been reviewed. At [...] offered as well as the national Quitline [id number]. We have discussed pharmacologic treatment including nicotine [...] as documented in the electronic medical record. Dishable Other 01-19-2023 Evaluation note* Encounter Date Diagnosis Assessment Notes Treatment Notes Treatment Clinical Notes Jul, Chronic obstructive pulmonary disease with acute exacerbation (ICD-10 - J44.1) Discussed diagnosis with patient. Medication profile and possible SE reviewed with patient. Take as directed. Keep appt w Dr. Castillo on 08/31. Notify office if not improving or worsening. Patient verbalizes understanding and agrees to treatment plan. Dishable Other 01-05-2023 Evaluation note* Encounter Date Diagnosis Assessment Notes Treatment Notes Treatment Clinical Notes Jul, Chronic obstructive pulmonary disease with acute exacerbation (ICD-10 - J44.1) Dishable Other Discharge summary Author Barbara Rivero [facility] October 13, 2022 2:14pm Note Date/Time October 13, 2022 2:0 9pm [facility] [address] [place] [address] Discharge Summary Signed Patient: Hector Gaspar SR MR#: [id number] : 1960 Acct:[id number] Age/Sex: 62 / M Adm Date: 3 Loc: Room: [address] [place] [address]: Barbara Rivero MD Copies to: [...] doctor or pharmacist, without first calling the brusher machine who implanted the stent. If you require [...] weight lifting, stair steppers, etc. until the brusher machine approves these activities. Check with the brusher machine on your first follow-up visit. CALL YOUR PHYSICIAN at [phone]: -If bleeding should occur from the catheter insertion site- apply pressure to the site then immediately call us. -Report any fever, redness, drainage, increased swelling, or firmness at the catheter insertion site. Some bruising or slight swelling may be present at thetime of discharge. -Should arm or leg become cold, numb, white, or blue, contact the brusher machine immediately. -IF you should experience episodes of [...] is recommended. Please call Central Scheduling at [phone] to schedule your appointment.] The attending brusher machine or [facility] nurse clinician should provide you with specific [...] BY MOUTH EVERY DAY Other Ambulatory Orders: CHIEF OF POLICE polysom procedure (Routine) Timeframe: 1 Week Location: Determined by Patient Ordered By: Barbara Rivero Follow Up: [facility] [Outside] (Left message with [facility] regarding need for outpatient [...] Barbara Rivero MD> 10/13/22 1414 [facility] Work Phone: Evaluation noteNo assessment information available [facility] Work Phone: Evaluation noteNo InformationNort Mingleplay Other Evaluation note* Diagnosis Onset Date Resolution Status COPD (chronic obstructive pulmonary disease) acute Heart block AV complete acut e Hypertension acute Hypoxemia acute NSTEMI (non-ST elevated myocardial infarction) acute Sleep apnea in adult acute Tobacco abuse acute Ventricular tachycardia seen on bus monitor acute [facility] Work Phone: Evaluation note* Diagnosis Atherosclerosis of kootenai coronary artery of k[place]ai heart without angina pectoris Essential hypertension, benign Mixed hyperlipidemia Ischemic cardiomyopathy Other specified forms of chronic ischemic heart disease Past myocardial infarction Old myocardial infarction Moderate chronic obstructive pulmonary disease ([facility]) Chronic airway obstruction, not elsewhere classified Obesity (BMI 35.0-39.9 without comorbidity) Current smoker documented in this encounter [facility] Work Phone: Evaluation note* Diagnosis Onset Date Resolution Status COPD (chronic obstructive pulmonary disease) acute Situational anxiety acute [facility] Work Phone: Evaluation note* Diagnosis Onset Date Resolution Status COPD (chronic obstructive pulmonary disease) acute Situational anxiety acute Hypertension acute Coronary artery disease invo lving kootenai heart without angina pectoris acute Hypertension acute Situational anxiety acute [facility] Work Phone: Evaluation note* Diagnosis Onset Date Resolution Status Hypertension acute Coronary artery disease invo lving kootenai heart without angina pectoris acute Hypertension acute Situational anxiety acute Right knee pain acute Right leg pain acute [facility] Work Phone: Evaluation note* Diagnosis Onset Date Resolution Status Right knee pain acute Right leg pain acute [facility] Work Phone: Evaluation note* Diagnosis Abdominal aortic aneurysm (AAA) without rupture, unspecified part ([facility])- Primary Obstructive chronic bronchitis with exacerbation ([facility]) Obstructive chronic bronchitis with exacerbation Obesity with body mass index (BMI) of 30.0 to 39.9 Chronic obstructive pulmonary disease, unspecified COPD type ([facility]) documented in this encounter [facility] SystemEvaluation note* Diagnosis Abdominal aortic aneurysm (AAA) without rupture, unspecified part ([facility])- Primary Obstructive chronic bronchitis with exacerbation ([facility]) Obstructive chronic bronchitis with exacerbation Obesity with body mass index (BMI) of 30.0 to 39.9 documented in this encounter [facility] SystemEvaluation note* Diagnosis Abdominal aortic aneurysm (AAA) without rupture, unspecified part ([facility])- Primary Obstructive chronic bronchitis with exacerbation ([facility]) Obstructive chronic bronchitis with exacerbation Obesity with body mass index (BMI) of 30.0 to 39.9 documented in this encounter [facility] SystemEvaluation note* Diagnosis Infrarenal abdominal aortic aneurysm (AAA) without rupture ([facility])- Primary Bilateral carotid bruits Cigarette smoker Tobacco use disorder documented in this encounter [facility] SystemEvaluation note* Diagnosis Infrarenal abdominal aortic aneurysm (AAA) without rupture ([facility])- Primary Bilateral carotid bruits Cigarette smoker Tobacco use disorder Infrarenal abdominal aortic aneurysm (AAA) without rupture ([facility])- Primary Cigarette smoker motivated to quit Bilateral carotid bruits documented in this encounter [facility] SystemEvaluation note* Diagnosis Preop cardiovascular exam Pre-operative cardiovascular examination Atherosclerosis of k[place] coronary artery of k[place] heart without angina pectoris Ischemic cardiomyopathy Other specified forms of chronic ischemic heart disease Past myocardial infarction Old myocardial infarction Mixed hyperlipidemia Essential hypertension Unspecified essential hypertension Murmur, heart Undiagnosed cardiac murmurs Moderate chronic obstructive pulmonary disease (Multi) Chronic airway obstruction, not elsewhere classified Lung mass Swelling, mass, or lump in chest Obesity (BMI 35.0-39.9 without comorbidity) Current smoker documented in this encounter [facility] Work Phone: History general Narrative - Reported* [...] History appendectomy 05/02/18 Hospitalization History SEE SURGICAL Dishable Other History general Narrative - Reported* Type [...] 3 Stents 09/2022 Hospitalization History SEE SURGICAL Dishable Other History general Narrative - Reported* Type [...] Stents 09/2022 Hospitalization History SEE SURGICAL HX Dishable Other History general Narrative - Reported* Type [...] History SEE SURGICAL HX Hospitalization History pneumonia Dishable Other InstructionsNot on filedocumented in this encounter [facility] SystemInstructionsNot on filedocumented in this encounter [facility] SystemInstructionsNot on filedocumented in this encounter [facility] SystemReason for referral (narrative)* Consultation (Routine) - Authorized Specialty Diagnoses / Procedures Referred By Yang boothe Referred To Contact Cardiology Diagnoses Atherosclerosis of kootenai coronary artery of kootenai heart without angina pectoris Procedures Follow Up In Cardiology Alok Webber DO [address] [place] [address] Alok Webber DO [address] [place] [address] 2, [place] [address] Referral ID Status Reason Start Date Expiration Date V isits Requested Visits Authorized [id number] Authorized 09/14/2023 09/13/2024 1 1 [facility] Work Phone: Reason for visit Narrative* Consultation (Routine) - Authorized Specialty Diagnoses / Procedures Referred By Yang boothe Referred To Contact Cardiology Diagnoses Atherosclerosis of k[place] coronary artery of [place] heart without angina pectoris Procedures Follow Up In Cardiology Alok Webber, DO [address] [place] [address] Phone: tel: fax: Alok Webber, DO [address] [place] [address] Phone: tel: fax: Referral ID Status Reason Start Date Expiration Date V isits Requested Visits Authorized [id number] Authorized 09/14/2023 09/13/2024 1 1 [facility] Work Phone: Chief Complaint and Reason for Visit Chief Complaint M25.561 Elevated Troponin Reason for Visit COPD (chronic obstru ctive pulmonary disease) Heart block AV complete Hypertension Hypoxemia NSTEMI (non-ST elevated myocardial infarction) Sleep apnea in adult Tobacco abuse Ventricular tachycardia seen on bus monitor Chief Complaint M25.561 Elevated Troponin I25.10 I10 E78.2 Reason for Visit COPD (chronic obstru ctive pulmonary disease) Heart block AV complete Hypertension Hypoxemia NSTEMI (non-ST elevated myocardial infarction) Sleep apnea in adult Tobacco abuse Ventricular tachycardia seen on bus monitor Chief Complaint M25.561 Elevated Troponin I25.10 I10 E78.2 j98.11 Reason for Visit COPD (chronic obstru ctive pulmonary disease) Heart block AV complete Hypertension Hypoxemia NSTEMI (non-ST elevated myocardial infarction) Sleep apnea in adult Tobacco abuse Ventricular tachycardia seen on bus monitor Chief Complaint Tbh Amb Documentation Breathing Issues Dizziness Reason for Visit COPD (chronic obstru ctive pulmonary disease) Situational anxiety Chief Complaint Amb Documentation Breathing Issues Dizziness 1 month follow up pain in right calf Reason for Visit COPD (chronic obstru ctive pulmonary disease) Situational anxiety Hypertension Coronary artery disease involving kootenai heart without angina pectoris Hypertension Situational anxiety Chief Complaint Dizziness 1 month follow up pain in right calf right leg swollen and painful Reason for Visit Hypertension Coronary artery disease involving k[place]enai heart without angina pectoris Hypertension Situational anxiety [...] 2012 that has been followed reportedly at [facility] details of which are unknown * Pulmonary medicine outpatient note is reviewed, plan is to proceed with urgent endobronchial biopsyobviously to rule out malignancy. * Based on current guidelines and most recent literature, this is an appropriate indication to withdraw antiplatelet therapy and proceed with urgent endobronchial biopsy for diagnostic purposes, notably his [place] stents that were recently placed have have [...] Infrarenal abdominal aortic aneurysm (AAA) without rupture ([facility]) Bilateral carotid bruits Cigarette smoker Procedures Echo complete W/O contrast Rom Pierre MD [address], [address] [address] Phone: Referral ID Status Reason Start Date Expiration Date V isits Requested Visits Authorized [id number] Pending Review 03/09/2024 03/09/2025 1 1 Specialty Diagnoses / Procedures Referred By Contac t Referred To Contact Diagnoses Bilateral carotid bruits Procedures Vas carotid duplex bilateral Rom Pierre MD [address], [address] [address] Phone: Referral ID Status Reason Start Date Expiration Date V isits Requested Visits Authorized [id number] Pending Review 03/09/2024 03/09/2025 1 1 Specialty Diagnoses / Procedures Referred By Contac t Referred To Contact Radiology Diagnoses Infrarenal abdominal aortic aneurysm (AAA) without rupture ([facility]) Procedures CT angiogram abdomen and pelvis Rom Pierre MD [address], [address] [address] Phone: Referral ID Status Reason Start Date Expiration Date V isits Requested Visits Authorized [id number] Pending Review 03/09/2024 03/09/2025 1 1 Specialty Diagnoses / Procedures Referred By Contac t Referred To Contact Radiology Diagnoses Abdominal aortic aneurysm (AAA) without rupture, unspecified part ([facility]) Obstructive chronic bronchitis with exacerbation ([facility]) Obesity with body mass index (BMI) of 30.0 to 39.9 Chronic obstructive pulmonary disease, unspecified COPD type ([facility]) Procedures CT angiogram abdomen and pelvis Christopher Sewell MD [address], [address] [address] Phone: Referral ID Status Reason Start Date Expiration Date V isits Requested Visits Authorized [id number] Pending Review 08/22/2023 08/21/2024 1 1 Reason *FU 07/28 5cm AAA - report scanned. Diagnosis 1 Abdominal aortic ane urysm (AAA) without rupture, unspecified part (I71.40) Referral Organization [facility] Referring Provider First Name Brock Referring Provider Last Name Ly Referring Provider Specialty Family Medi cine Referred Organization [facility] Referred Provider Christopher Sewell Referred Address [address] [place], [place],[address] Referred Provider Specialty Vascular Mir michelle Referral Priority Routine General Notes Helen Mendez 09:16:43 AM >received today, attachments made, ntoes locked, referral faxed Clinical Notes p: [phone] f: [phone] Additional Source Comments Care Teams (unrecognized sec [...] End: December 13, 2023 Brenda Jolley APRN LIVING SPECIALIST-C Attending Provider Act carol Start: December [...] Status Dates Brock oMdi MD Primary Care Provide r, Attending Provider [...] Active Adi Campos MD Attending Provider Active Manager Of Community Relations Relationship Specialty Start Date End Date Brock Modi MD PCP - General 10/10/22 Team Status: Inactive Member Role Status Dates Brock Modi MD Attending Provider Active St art: August 06, 2023 End: August 06, 2023 Manager Of Community Relations Relationship Specialty Start Date End Date Brock Modi MD [address] [place] [address] PCP - General Family Medicine 09/03/21 Manager Of Community Relations Relationship Specialty Start Date End Date Brock Modi MD [address] [place] [address] PCP - General Family Medicine 09/03/21 Manager Of Community Relations Relationship Specialty Start Date End Date Brock Modi MD [address] [place] [address] PCP - General Family Medicine 09/03/21 Manager Of Community Relations Relationship Specialty Start Date End Date Brock Modi MD [address] [place] [address] PCP - General Family Medicine 09/03/21 Manager Of Community Relations Relationship Specialty Start Date End Date Seymour Harper MD [address] [place] [address] PCP - General Family Medicine 09/12/24 Manager Of Community Relations Relationship Specialty Start Date End Date Seymour Harper MD [address] [place] [address] PCP - General Family Medicine 09/20/24 Goals [...] content) Reason Comments AAA, CT abd/pelvis at [facility], carotids Prom edica Reason Comments Abdominal aortic aneurysm (AAA) without rupture, unspecifie 6 month follow up with testing CT angiog mic abd/pel 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 Te sting was in 08/2022. Specialty Diagnoses / Procedures Referred By Yang boothe Referred To Contact Vascular Surgery Diagnoses Abdominal aortic aneurysm (AAA) without rupture, unspecified part ([facility]) Christopher Sewell MD [address], [address] [address] Christopher Sewell MD [address] [place] [address] Referral ID Status Reason Start Date Expiration Date Visits Requested Visits Authorized [id number] Pending Review Specialty Services Required 3 07/21/2024 1 1 Reason Comments Follow-up 6m US resultTBHsleep apnea discussionrefillAlprazolamRecheck Right Knee* Reason for Visit: * Holter Monitor: * HECTOR is here for the application of a 48 hour Holter monitor. * Ordering Physician: JANINE CUNHA * Diagnosis: CAD SINUS PAUSE * [facility] equipment agreement signed. HECTOR understands monitor is to be returned on: 11-03-22 * Monitor number [id number] applied. * Holter monitor returned and downloaded. messagePulmonary Office NotesRef by Dr. Brock Modi for [facility] HAD HEART ATTACKRight Knee PainCheck Upnot feeling back to normal- discussion (unrecognized sect ion and content) No Status Records FoundNo Status Records FoundNo Status Records FoundNo Status Records FoundNo Status Records FoundNo Status Records FoundNo Status Records Found INFORMATION SOURCE (unrecogn ized section and content) DATE CREATED AUTHOR 11/07/2022 [facility] DATE CREATED AUTHOR AUTHOR'S ORGANIZ ATION 01/02/2023 [employer] DATE CREATED AUTHOR AUTHOR'S ORGANIZ ATION 04/09/2023 [facility] DATE CREATED AUTHOR AUTHOR'S ORGANIZ ATION 06/12/2024 [facility] DATE CREATED AUTHOR AUTHOR'S ORGANIZ ATION 09/14/[address] [facility] DATE CREATED AUTHOR AUTHOR'S ORGANIZ ATION 09/18/2024 [facility] DATE CREATED AUTHOR AUTHOR'S ORGANIZ ATION 09/22/2024 [facility] FOR RECORDS PERTAINING TO PATIENTS [...] BE BASED ON THE PRIMARY CLINICAL RECORDS. [facility] provides no warranty or guarantee of the accuracy or completeness of information in this document.
[2024-10-16] MEDS: ALBUTEROL SULFATE 2.5 MG/3 ML VIAL NEB IH (09:50)
== END 2024-10-16 09:04 | disposition home or self-care (01) ==
LOC: CARD 09:03
PROVIDERS: PCP Family Medicine; Visit Provider Internal Medicine Cardiovascular Disease
DX: R91.8 Other nonspecific abnormal finding of lung field (principal); E78.2 Mixed hyperlipidemia; I25.5 Ischemic cardiomyopathy; I25.10 Atherosclerotic heart disease of native coronary artery without angina pectoris; I25.2 Old myocardial infarction; I10 Essential (primary) hypertension
CPT/HCPCS: 80061; 84450; 84460; 86140; 94060; 94726; 94729

== ENCOUNTER 2024-11-02 14:47 | Outpatient (OUT) | payer OTHER, SELFPAY ==
--- NOTE | 2024-11-02 14:55 | XR_ITS ---
The [address] [address] Patient Name: HECTOR HIGHTOWER MRN: [id number] date: 1960 Sex: M Assigned Patient Location: [facility] Current Patient Location: [facility] Accession/Order Number: [id number] Exam Date: 11/02/2024 15:17 Report Date: 11/02/2024 15:19 At the request of: DELL ARMIJO Procedure: XR chest 2V Chest 2 views CLINICAL HISTORY: Lung Mass COMPARISON: Chest 09/27/2024 FINDINGS: Heart is normal in size. Masslike consolidation superior segment right lower lobe is once again demonstrated as seen on the lateral view. No new consolidation pneumothorax pleural effusion or free air. XR/XR chest 2V IMPRESSION: MASSLIKE CONSOLIDATION SUPERIOR SEGMENT RIGHT LOWER LOBE SIMILAR TO THE PRIOR STUDY. THIS IS CONFIRMED ON A CT LUNG SCREEN STUDY OF 08/11/2024. Impression dictated by: Parrish Layton Jr., D.O.11/02/2024 3:19 PM Dictation Location: [place] [address] Electronically authenticated by: [id number] Y Date: 11/02/2024 15:19
== END 2024-11-02 14:48 | disposition home or self-care (01) ==
LOC: RAD 14:48
PROVIDERS: PCP Family Medicine; Visit Provider Internal Medicine Cardiovascular Disease
DX: R91.8 Other nonspecific abnormal finding of lung field (principal)
CPT/HCPCS: 71046

== ENCOUNTER 2024-11-16 10:38 | Emergency (ER) | payer OTHER, SELFPAY ==
[2024-11-16 10:45] VITALS: BP 161/100; PULSE 91; TEMP 36.8; O2SAT 96; BMI 38.7
--- NOTE | 2024-11-16 10:58 | ED_ITS ---
HPI HPI - General Adult General Chief complaint: Fever Stated complaint: POST OP FEVER Time Seen by Provider: 11/16/24 10:51 Source: patient Mode of arrival: walk-in Limitations: no limitations History of Present Illness HPI narrative: 64-year-old male presents for possible fever. 2 days ago he had AAA repair at [facility] by Dr. Pierre. He was released yesterday. Today he went to his PCPs office for checkup and he states they checked his temperature and it was 100.9 in his ear. 30 minutes later he was here and he did not have a fever, temperature was 98.3 orally at triage. He has not had a cough or chest pain or dysuria or abdominal pain. Related Data Home Medications ?Medication ?Instructions ?Recorded ?Confirmed aspirin 81 mg chewable tablet 1 tab PO DAILY 01/24/23 11/16/24 atorvastatin 80 mg tablet 80 mg PO QPM 01/24/23 11/16/24 clopidogrel 75 mg tablet (Plavix) 75 mg PO DAILY 10/09/23 11/16/24 losartan 50 mg tablet (Cozaar) 50 mg PO DAILY 11/16/24 11/16/24 metoprolol tartrate 25 mg tablet 25 mg PO BID 11/16/24 11/16/24 nitroglycerin 0.4 mg sublingual 0.4 mg sublingual Q5M 11/16/24 11/16/24 tablet ticagrelor 90 mg tablet (Brilinta) 90 mg PO Q12H 11/16/24 11/16/24 Previous Rx's ?Medication ?Instructions ?Recorded albuterol sulfate 90 mcg/actuation 2 inh inhalation Q4H PRN shortness 08/10/24 aerosol inhaler of breath or wheezing #8.5 grams Allergies Allergy/AdvReac Type Severity Reaction Status Date / Time Penicillins Allergy Severe Hives Verified 11/16/24 10:44 pneumonia shot AdvReac Intermediate Unknown Uncoded 11/16/24 10:44 Opioid HPI Opioid Management Most Recent Opioid Data: No Data to Display Review of Systems ROS Narrative A ten point review of systems is negative except as noted above. [facility] Medical History (Updated 11/16/24 @ 11:39 by Frank Ashford MD) Hypercholesterolemia ?E78.00 - Pure hypercholesterolemia, unspecified (ICD-10) COPD (chronic obstructive pulmonary disease) ?J44.9 - Chronic obstructive pulmonary disease, unspecified (ICD-10) Social History Smoking status: Current every day smoker Little interest or pleasure in doing things: not at all Feeling down, depressed, or hopeless: not at all Exam Narrative Exam Narrative: Nurses note and vital signs reviewed and patient is not hypoxic. General: The patient appears well and in no apparent distress. Patient is resting comfortably on cart. Skin: Warm, dry, no pallor noted. There is no rash noted. Head: Normocephalic, atraumatic Eye: Normal conjunctiva, no drainage Ears, Nose, Mouth, and Throat: oral mucosa is moist. Nares patent. Cardiovascular: Regular Rate and Rhythm Respiratory: Patient is in no distress, no accessory muscle use, lungs are clear to auscultation, no wheezing, rales or rhonchi Back: non-tender GI: Soft and nontender Musculoskeletal: Bilateral inguinal sites are healing well with no erythema. Small amount of bruising present. Neurological: A&O, normal speech Psychiatric: Cooperative Constitutional Vital Signs, click to edit/add: Last Vital Signs Temp 98.2 F 11/16/24 11:18 Pulse 91 H 11/16/24 10:45 Resp 16 11/16/24 10:45 BP 161/100 H 11/16/24 10:45 Pulse Ox 96 11/16/24 10:45 O2 Del Method Room Air 11/16/24 10:45 Course Vital Signs Vital signs: Vital Signs Temperature 98.3 F 11/16/24 10:45 Pulse Rate 91 H 11/16/24 10:45 Respiratory Rate 16 11/16/24 10:45 Blood Pressure 161/100 H 11/16/24 10:45 Pulse Oximetry 96 11/16/24 10:45 Oxygen Delivery Method Room Air 11/16/24 10:45 Temperature 98.2 F 11/16/24 11:18 Pulse Rate 91 H 11/16/24 10:45 Respiratory Rate 16 11/16/24 10:45 Blood Pressure 161/100 H 11/16/24 10:45 Pulse Oximetry 96 11/16/24 10:45 Oxygen Delivery Method Room Air 11/16/24 10:45 Medical Decision Making MDM Narrative Medical decision making narrative: 30 minutes prior to arrival he had a reported tympanic temperature of 100.9. Upon arrival it was 98.3 and a recheck was 98.2, both of these orally. White blood cell count is normal and urinalysis is negative. He has a normal physical exam. Case is discussed with Dr. Pierre and he is being discharged home. My clinical impression is that the tympanic temperature of 100.9 was erroneous. Treatment diagnosis and follow-up were discussed with the patient. Differential Diagnosis Differential Diagnosis: Cellulitis, UTI Lab Data Lab results reviewed: Yes I reviewed the patient's lab results Labs: Lab Results 11/16/24 11/16/24 Range/Units 11:06 11:07 WBC 9.1 (4.0-11.0) 10^3/uL RBC 4.08 L (4.70-6.10) 10^6/uL Hgb 12.7 L (14.0-18.0) g/dL Hct 37.6 L (42.0-54.0) % MCV 92.2 (80.0-94.0) fL MCH 31.1 (25.9-34.0) pg MCHC 33.8 (29.9-35.2) g/dL RDW 13.2 (11.0-15.0) % Plt Count 157 (150-450) 10^3/uL MPV 9.5 (9.5-13.5) fL Neut % (Auto) 70.4 (43.0-75.0) % Lymph % (Auto) 11.9 L (20.5-60.0) % [place] % (Auto) 15.0 H (1.7-12.0) % Eos % (Auto) 2.0 (0.9-7.0) % Baso % (Auto) 0.4 (0.2-2.0) % Neut # (Auto) 6.4 (1.4-6.5) 10^3/uL Lymph # (Auto) 1.1 L (1.2-3.8) 10^3/uL [place] # (Auto) 1.4 H (0.3-0.8) 10^3/uL Eos # (Auto) 0.2 (0.0-0.7) 10^3/uL Baso # (Auto) 0.0 (0.0-0.1) 10^3/uL Abs Immat Gran (auto) 0.03 (0.00-0.03) 10^3/uL Imm/Tot Granulo (auto) 0.3 (0.0-0.5) % Sodium 141 (136-145) mmol/L Potassium 3.9 (3.5-5.1) mmol/L Chloride 104 (98-107) mmol/L Carbon Dioxide 30.2 (21.0-32.0) mmol/L Anion Gap 10.7 BUN 19.0 H (7.0-18.0) mg/dL Creatinine 1.32 H (0.70-1.30) mg/dL Est GFR ( Amer) >60 (>=60 mL/min/1.73m^2) Est GFR (Non-Af Amer) 55 L (>=60 mL/min/1.73m^2) BUN/Creatinine Ratio 14.4 Glucose 126 H (74-106) mg/dL Calcium 8.9 (8.5-10.1) mg/dL Urine Color Lt. yellow (YELLOW) Urine Clarity Clear (CLEAR) Urine pH 6.0 (5.0-9.0) Ur Specific [place] 1.020 (1.005-1.025) Urine Protein Negative (NEG/TRACE) mg/dL Urine Glucose (UA) Negative (NEGATIVE) mg/dL Urine Ketones Negative (NEGATIVE) mg/dL Urine Occult Blood Negative (NEGATIVE) Urine Nitrite Negative (NEGATIVE) Urine Bilirubin Negative (NEGATIVE) Urine Urobilinogen 0.2 (0.2-1.0) EU/dL Ur Leukocyte Esterase Negative (NEGATIVE) Urine RBC 0-2 (0-2) #/HPF Urine WBC 0-2 A (NONE SEEN) #/HPF Ur Squamous Epith Cells Few A (NONE/RARE) #/LPF Urine Crystals None seen (None Seen) #/HPF Urine Bacteria None seen (NONE SEEN) #/HPF Urine Casts None seen (NONE SEEN) #/LPF Urine Mucus Trace A (NONE SEEN) Discharge Plan Discharge Chief Complaint: Fever Clinical Impression: No problem, feared complaint unfounded Patient Disposition: Home, Self-Care Time of Disposition Decision: 11:38 Condition: Good Mode of Transportation: Private Vehicle Prescriptions / Home Meds: No Action aspirin 81 mg tablet,chewable 1 tab PO DAILY atorvastatin 80 mg tablet 80 mg PO QPM albuterol sulfate 90 mcg/actuation HFA aerosol inhaler 2 inh inhalation Q4H PRN (Reason: shortness of breath or wheezing) Qty: 8.5 0RF metoprolol tartrate 25 mg tablet 25 mg PO BID losartan [Cozaar] 50 mg tablet 50 mg PO DAILY Brilinta 90 mg tablet 90 mg PO Q12H nitroglycerin 0.4 mg tablet, sublingual 0.4 mg sublingual Q5M Rx Instructions: do not exceed 3 doses per episode clopidogrel [Plavix] 75 mg tablet 75 mg PO DAILY Print Language: Colombian Instructions: Normal Exam (ED) Referrals: Sukumar Davison MD [Primary Care Provider] - 1 week
[2024-11-16 11:12] LABS: Basophils Percent Auto 0.4 % (0.2-2.0); Eosinophils Absolute Auto 0.2 10^3/uL (0.0-0.7); Hematocrit 37.6 % (42.0-54.0); Hemoglobin 12.7 g/dL (14.0-18.0); Immature Granulocytes Abs Auto 0.03 10^3/uL (0.00-0.03); Immature Granulocytes Pct Auto 0.3 % (0.0-0.5); Lymphocytes Absolute Auto 1.1 10^3/uL (1.2-3.8); Lymphocytes Percent Auto 11.9 % (20.5-60.0); Mean Corpuscular HGB Conc 33.8 g/dL (29.9-35.2); Mean Corpuscular Hemoglobin 31.1 pg (25.9-34.0); Mean Corpuscular Volume 92.2 fL (80.0-94.0); Mean Platelet Volume 9.5 fL (9.5-13.5); Monocytes Absolute Auto 1.4 10^3/uL (0.3-0.8); Neutrophils Absolute Auto 6.4 10^3/uL (1.4-6.5); Neutrophils Percent Auto 70.4 % (43.0-75.0); Platelet Count 157 10^3/uL (150-450); Red Blood Count 4.08 10^6/uL (4.70-6.10); Red Cell Distribution Width 13.2 % (11.0-15.0); White Blood Count 9.1 10^3/uL (4.0-11.0)
[2024-11-16 11:16] LABS: Bilirubin Urine NEGATIVE (NEGATIVE); Blood Urine NEGATIVE (NEGATIVE); Clarity Urine CLEAR (CLEAR); Color Urine LT. YELLOW (YELLOW); Glucose Urine UA NEGATIVE (NEGATIVE); Ketones Urine NEGATIVE (NEGATIVE); Leukocyte Esterase Urine NEGATIVE (NEGATIVE); Nitrite Urine NEGATIVE (NEGATIVE); Protein Urine NEGATIVE (NEG/TRACE); Urobilinogen Urine 0.2 EU/dL (0.2-1.0)
[2024-11-16 11:18] VITALS: TEMP 36.8
[2024-11-16 11:21] LABS: Anion Gap 10.7; BUN Creatinine Ratio 14.4; Calcium 8.9 mg/dL (8.5-10.1); Carbon Dioxide 30.2 mmol/L (21.0-32.0); Chloride 104 mmol/L (98-107); Estimated GFR (African America >60 (>=60 mL/min/1.73m^2); Estimated GFR (Non-African Ame 55 (>=60 mL/min/1.73m^2); Glucose 126 mg/dL (74-106); Potassium 3.9 mmol/L (3.5-5.1); Sodium 141 mmol/L (136-145)
[2024-11-16 11:23] LABS: Bacteria Urine NONE SEEN #/HPF (NONE SEEN); Cast Seen? NONE SEEN #/LPF (NONE SEEN); Crystals Seen? None Seen #/HPF (None Seen); Mucus Urine TRACE (NONE SEEN); RBC Urine 0-2 #/HPF (0-2); Squamous Epithelial Cell Urine FEW #/LPF (NONE/RARE); WBC Urine 0-2 #/HPF (NONE SEEN)
== END 2024-11-16 11:52 | disposition home or self-care (01) ==
PROVIDERS: Emergency Provider Emergency Medicine; PCP Family Medicine
DX: Z71.1 Person with feared health complaint in whom no diagnosis is made (principal); Z98.890 Other specified postprocedural states; F17.200 Nicotine dependence, unspecified, uncomplicated
CPT/HCPCS: 36415; 80048; 81001; 85025; 99283

== ENCOUNTER 2024-11-23 14:43 | Outpatient (OUT) | payer OTHER, SELFPAY ==
[2024-11-23 15:02] LABS: Basophils Percent Auto 0.4 % (0.2-2.0); Eosinophils Absolute Auto 0.3 10^3/uL (0.0-0.7); Eosinophils Percent Auto 3.5 % (0.9-7.0); Hematocrit 37.2 % (42.0-54.0); Hemoglobin 12.7 g/dL (14.0-18.0); Immature Granulocytes Abs Auto 0.07 10^3/uL (0.00-0.03); Immature Granulocytes Pct Auto 0.8 % (0.0-0.5); Lymphocytes Absolute Auto 1.4 10^3/uL (1.2-3.8); Lymphocytes Percent Auto 16.4 % (20.5-60.0); Mean Corpuscular HGB Conc 34.1 g/dL (29.9-35.2); Mean Corpuscular Hemoglobin 31.2 pg (25.9-34.0); Mean Corpuscular Volume 91.4 fL (80.0-94.0); Mean Platelet Volume 8.8 fL (9.5-13.5); Monocytes Absolute Auto 1.1 10^3/uL (0.3-0.8); Monocytes Percent Auto 13.2 % (1.7-12.0); Neutrophils Absolute Auto 5.6 10^3/uL (1.4-6.5); Neutrophils Percent Auto 65.7 % (43.0-75.0); Platelet Count 328 10^3/uL (150-450); Red Blood Count 4.07 10^6/uL (4.70-6.10); Red Cell Distribution Width 12.4 % (11.0-15.0); White Blood Count 8.5 10^3/uL (4.0-11.0)
[2024-11-23 15:32] LABS: Alanine Aminotransferase 59 U/L (16-63); Albumin Globulin Ratio 0.6; Albumin Level 2.9 g/dL (3.4-5.0); Alkaline Phosphatase 88 U/L (46-116); Amylase 42 U/L (25-115); Aspartate Amino Transferase 26 U/L (15-37); BUN Creatinine Ratio 15.5; Bilirubin Total 0.4 mg/dL (0.2-1.0); Calcium 9.2 mg/dL (8.5-10.1); Carbon Dioxide 31.3 mmol/L (21.0-32.0); Chloride 102 mmol/L (98-107); Estimated GFR (African America >60 (>=60 mL/min/1.73m^2); Estimated GFR (Non-African Ame 50 (>=60 mL/min/1.73m^2); Globulin 4.7 g/dL; Glucose 113 mg/dL (74-106); Potassium 4.3 mmol/L (3.5-5.1); Sodium 141 mmol/L (136-145); Total Protein 7.6 g/dL (6.4-8.2)
== END 2024-11-23 14:44 | disposition home or self-care (01) ==
LOC: LAB 14:44
PROVIDERS: PCP Family Medicine; Visit Provider Family Medicine
DX: K62.9 Disease of anus and rectum, unspecified (principal); E78.00 Pure hypercholesterolemia, unspecified; D64.9 Anemia, unspecified
CPT/HCPCS: 36415; 80053; 82150; 82728; 83540; 83690; 85025

== ENCOUNTER 2024-11-25 14:50 | Emergency (ER) | payer OTHER, SELFPAY ==
[2024-11-25] VITALS (8 sets, daily range): BP systolic 128–151; BP diastolic 71–91; PULSE 58–92; TEMP 37.1; O2SAT 95–99; BMI 37.6
--- NOTE | 2024-11-25 15:11 | ECG_ITS ---
[facility] Test Date: 2024-11-25 Pat Name: HECTOR HIGHTOWER Department: Room: - Gender: Male [employer]: : 1960 Requested By: [id number] Order Number: [id number] Reading MD: CHEL LYNN M.D. Measurements Intervals [place] Rate: 94 P: 47 AR: 142 QRS: 34 QRSD: 88 T: 66 QT: 342 QTc: 394 Interpretive Statements 1100 Sinus rhythm 1475 with frequent supraventricular premature complexes in a pattern of bigeminy 3514 Cannot rule out lateral myocardial infarction, age undetermined [address] Cannot rule out inferior myocardial infarction with posterior extension, age undetermined 9150 abnormal ECG Compared to ECG 09/03/2024 22:25:50 No significant changes Electronically Signed On 11-26-2024 7:37:04 EDT by CHEL LYNN M.D.
[2024-11-25 15:37] LABS: Basophils Absolute Auto 0.1 10^3/uL (0.0-0.1); Basophils Percent Auto 0.8 % (0.2-2.0); Eosinophils Absolute Auto 0.3 10^3/uL (0.0-0.7); Eosinophils Percent Auto 3.8 % (0.9-7.0); Hematocrit 37.9 % (42.0-54.0); Hemoglobin 12.4 g/dL (14.0-18.0); Immature Granulocytes Abs Auto 0.03 10^3/uL (0.00-0.03); Immature Granulocytes Pct Auto 0.4 % (0.0-0.5); Lymphocytes Absolute Auto 1.3 10^3/uL (1.2-3.8); Lymphocytes Percent Auto 16.4 % (20.5-60.0); Mean Corpuscular HGB Conc 32.7 g/dL (29.9-35.2); Mean Corpuscular Hemoglobin 30.2 pg (25.9-34.0); Mean Corpuscular Volume 92.2 fL (80.0-94.0); Mean Platelet Volume 8.7 fL (9.5-13.5); Monocytes Absolute Auto 0.8 10^3/uL (0.3-0.8); Neutrophils Absolute Auto 5.4 10^3/uL (1.4-6.5); Neutrophils Percent Auto 68.6 % (43.0-75.0); Platelet Count 378 10^3/uL (150-450); Red Blood Count 4.11 10^6/uL (4.70-6.10); Red Cell Distribution Width 12.4 % (11.0-15.0); White Blood Count 7.8 10^3/uL (4.0-11.0)
--- NOTE | 2024-11-25 15:39 | PC.NURSE ---
Patient reports having nausea without vomiting. Started Cipro yesterdat for UTI, nausea started after taking Cipro.
[2024-11-25 15:47] LABS: Clarity Urine CLEAR (CLEAR); Color Urine DK ORANGE (YELLOW)
[2024-11-25 15:49] LABS: Bilirubin Urine COLOR INTERFERENCE (NEGATIVE); Blood Urine COLOR INTERFERENCE (NEGATIVE); Glucose Urine UA COLOR INTERFERENCE mg/dL (NEGATIVE); Ketones Urine COLOR INTERFERENCE mg/dL (NEGATIVE); Leukocyte Esterase Urine COLOR INTERFERENCE (NEGATIVE); Nitrite Urine COLOR INTERFERENCE (NEGATIVE); Protein Urine COLOR INTERFERENCE mg/dL (NEG/TRACE); Specific Gravity Urine COLOR INTERFERENCE (1.005-1.025); Urine Microscopic Indicated YES; Urobilinogen Urine COLOR INTERFERENCE EU/dL (0.2-1.0); pH Urine COLOR INTERFERENCE (5.0-9.0)
[2024-11-25 15:54] LABS: Alanine Aminotransferase 57 U/L (16-63); Albumin Globulin Ratio 0.6; Albumin Level 2.8 g/dL (3.4-5.0); Alkaline Phosphatase 84 U/L (46-116); Anion Gap 14.7; Aspartate Amino Transferase 26 U/L (15-37); BUN Creatinine Ratio 15.1; Bilirubin Total 0.4 mg/dL (0.2-1.0); Calcium 9.4 mg/dL (8.5-10.1); Carbon Dioxide 28.7 mmol/L (21.0-32.0); Chloride 102 mmol/L (98-107); Estimated GFR (African America >60 (>=60 mL/min/1.73m^2); Estimated GFR (Non-African Ame 51 (>=60 mL/min/1.73m^2); Globulin 4.9 g/dL; Glucose 116 mg/dL (74-106); Potassium 4.4 mmol/L (3.5-5.1); Sodium 141 mmol/L (136-145); Total Protein 7.7 g/dL (6.4-8.2); Troponin I High Sensitivity 6.1 pg/mL (4.0-76.1)
[2024-11-25 15:56] LABS: Bacteria Urine SMALL #/HPF (NONE SEEN); Crystals Seen? None Seen #/HPF (None Seen); Mucus Urine SMALL (NONE SEEN); Squamous Epithelial Cell Urine FEW #/LPF (NONE/RARE); WBC Urine 0-2 #/HPF (NONE SEEN)
[2024-11-25 15:57] LABS: Cast Seen? NONE SEEN #/LPF (NONE SEEN); Urine Culture Indicated YES-FRMC
--- NOTE | 2024-11-25 16:22 | ED.NAVMDI1 ---
HPI - Nausea/Vomiting/Diarrhea General Chief complaint: Nausea/Vomiting/Diarrhea Stated complaint: NAUSEA Time Seen by Provider: 11/25/24 15:08 Source: patient Mode of arrival: walk-in History of Present Illness HPI Narrative: The patient is a 64-year-old male who recently has been diagnosed with UTI after he was evaluated by his primary care doctor last week, this happened almost within the last 4 days. The patient mentioned that for the last few days he has not been feeling himself he has been weak and tired have no appetite, also has some nausea The patient was prescribed ciprofloxacin which he took to be evaluated and he is feeling that this medication caused him to be nauseous. Related Data Home Medications ?Medication ?Instructions ?Recorded ?Confirmed aspirin 81 mg chewable tablet 1 tab PO DAILY 01/24/23 11/25/24 atorvastatin 80 mg tablet 80 mg PO QPM 01/24/23 11/25/24 clopidogrel 75 mg tablet (Plavix) 75 mg PO DAILY 10/09/23 11/25/24 metoprolol tartrate 25 mg tablet 25 mg PO BID 11/16/24 11/25/24 nitroglycerin 0.4 mg sublingual 0.4 mg sublingual Q5M 11/16/24 11/25/24 tablet ciprofloxacin HCl 500 mg tablet 500 mg PO Q12H 11/25/24 11/25/24 phenazopyridine 200 mg tablet 200 mg PO TIDWMEAL 11/25/24 11/25/24 valsartan 40 mg tablet 40 mg PO DAILY 11/25/24 11/25/24 Previous Rx's ?Medication ?Instructions ?Recorded albuterol sulfate 90 mcg/actuation 2 inh inhalation Q4H PRN shortness 08/10/24 aerosol inhaler of breath or wheezing #8.5 grams Allergies Allergy/AdvReac Type Severity Reaction Status Date / Time Penicillins Allergy Severe Hives Verified 11/25/24 14:53 pneumonia shot AdvReac Intermediate Unknown Uncoded 11/25/24 14:53 Review of Systems ROS Status of ROS 10 or more systems reviewed and unremarkable except as noted in history and below [facility] Medical History (Updated 11/16/24 @ 11:39 by Frank Ashford MD) Hypercholesterolemia ?E78.00 - Pure hypercholesterolemia, unspecified (ICD-10) COPD (chronic obstructive pulmonary disease) ?J44.9 - Chronic obstructive pulmonary disease, unspecified (ICD-10) Social History Smoking status: Current every day smoker Little interest or pleasure in doing things: not at all Feeling down, depressed, or hopeless: not at all Exam Narrative Exam Narrative: Nurses notes and vital signs reviewed and patient is not hypoxic. General: Well-appearing and in no apparent distress. Skin: Warm, dry, no pallor noted. No rash. Head: Normocephalic, atraumatic. Neck: Supple, non-tender. Cardiovascular: Regular Rate and Rhythm without murmur, gallop or rub. Respiratory: No accessory muscle use or respiratory distress. Lungs are clear to auscultation, no wheezing, rales or rhonchi Chest Wall: no tenderness Back: Left lumbar area pain and mostly pain to the left CVA as well, no ecchymosis no swelling Musculoskeletal: normal ROM, no calf or popliteal tenderness, no lower extremity edema/swelling GI: Abdomen is soft, non-distended. Normal bowel sounds. No masses appreciated. No tenderness to palpation. No rebound, guarding, or rigidity noted. Neurological: A&O x4. No cranial nerve dysfunction observed. Constitutional Vital Signs, click to edit/add: Last Vital Signs Temp 98.7 F 11/25/24 14:59 Pulse 62 11/25/24 16:58 Resp 11/25/24 16:58 BP 138/88 11/25/24 18:30 Pulse Ox 97 11/25/24 16:58 O2 Del Method Room Air 11/25/24 16:58 Course Vital Signs Vital signs: Vital Signs Temperature 98.7 F 11/25/24 14:59 Pulse Rate 58 L 11/25/24 14:59 Respiratory Rate 11/25/24 14:59 Blood Pressure 144/72 H 11/25/24 14:59 Pulse Oximetry 97 11/25/24 14:59 Oxygen Delivery Method Room Air 11/25/24 14:59 Temperature 98.7 F 11/25/24 14:59 Pulse Rate 62 11/25/24 16:58 Respiratory Rate 20 11/25/24 16:58 Blood Pressure 138/88 11/25/24 18:30 Pulse Oximetry 97 11/25/24 16:58 Oxygen Delivery Method Room Air 11/25/24 16:58 MDM - Nausea/Vomiting/Diarrhea MDM Narrative Medical decision making narrative: The patient CBC and chemistry showed no acute pathology The patient urine sample from today did not show any UTI His back pain is not associated with any urinary frequency or urgency or any burning And right now with the patient history of recent abdominal aortic aneurysm repair that was done on 14 November the patient pain in the back could be secondary to that 2 after the CAT scan without contrast showed no acute pathology I discussed the case with Dr. Pierre, especially with the aneurysm measuring 5.9 cm and it was 5.2 before. The patient EKG showing sinus rhythm with a heart rate of 94 some bigeminy PACs seen in the EKG Lab Data Labs: Lab Results 11/25/24 11/25/24 Range/Units 15:15 15:20 WBC 7.8 (4.0-11.0) 10^3/uL RBC 4.11 L (4.70-6.10) 10^6/uL Hgb 12.4 L (14.0-18.0) g/dL Hct 37.9 L (42.0-54.0) % MCV 92.2 (80.0-94.0) fL MCH 30.2 (25.9-34.0) pg MCHC 32.7 (29.9-35.2) g/dL RDW 12.4 (11.0-15.0) % Plt Count 378 (150-450) 10^3/uL MPV 8.7 L (9.5-13.5) fL Neut % (Auto) 68.6 (43.0-75.0) % Lymph % (Auto) 16.4 L (20.5-60.0) % [place] % (Auto) 10.0 (1.7-12.0) % Eos % (Auto) 3.8 (0.9-7.0) % Baso % (Auto) 0.8 (0.2-2.0) % Neut # (Auto) 5.4 (1.4-6.5) 10^3/uL Lymph # (Auto) 1.3 (1.2-3.8) 10^3/uL [place] # (Auto) 0.8 (0.3-0.8) 10^3/uL Eos # (Auto) 0.3 (0.0-0.7) 10^3/uL Baso # (Auto) 0.1 (0.0-0.1) 10^3/uL Abs Immat Gran (auto) 0.03 (0.00-0.03) 10^3/uL Imm/Tot Granulo (auto) 0.4 (0.0-0.5) % Sodium 141 (136-145) mmol/L Potassium 4.4 (3.5-5.1) mmol/L Chloride 102 (98-107) mmol/L Carbon Dioxide 28.7 (21.0-32.0) mmol/L Anion Gap 14.7 BUN 21.0 H (7.0-18.0) mg/dL Creatinine 1.39 H (0.70-1.30) mg/dL Est GFR ( Amer) >60 (>=60 mL/min/1.73m^2) Est GFR (Non-Af Amer) 51 L (>=60 mL/min/1.73m^2) BUN/Creatinine Ratio 15.1 Glucose 116 H (74-106) mg/dL Calcium 9.4 (8.5-10.1) mg/dL Total Bilirubin 0.4 (0.2-1.0) mg/dL AST 26 (15-37) U/L ALT 57 (16-63) U/L Alkaline Phosphatase 84 (46-116) U/L Troponin I High Sens 6.1 (4.0-76.1) pg/mL Total Protein 7.7 (6.4-8.2) g/dL Albumin 2.8 L (3.4-5.0) g/dL Globulin 4.9 g/dL Albumin/Globulin Ratio 0.6 Urine Color Dk orange A (YELLOW) Urine Clarity Clear (CLEAR) Urine pH Color interference A (5.0-9.0) Ur Specific [place] Color interference A (1.005-1.025) Urine Protein Color interference A (NEG/TRACE) mg/dL Urine Glucose (UA) Color interference A (NEGATIVE) mg/dL Urine Ketones Color interference A (NEGATIVE) mg/dL Urine Occult Blood Color interference A (NEGATIVE) Urine Nitrite Color interference A (NEGATIVE) Urine Bilirubin Color interference A (NEGATIVE) Urine Urobilinogen Color interference A (0.2-1.0) EU/dL Ur Leukocyte Esterase Color interference A (NEGATIVE) Urine RBC 5-10 A (0-2) #/HPF Urine WBC 0-2 A (NONE SEEN) #/HPF Ur Squamous Epith Cells Few A (NONE/RARE) #/LPF Urine Crystals None seen (None Seen) #/HPF Urine Bacteria Small A (NONE SEEN) #/HPF Urine Casts None seen (NONE SEEN) #/LPF Urine Mucus Small A (NONE SEEN) Ur Culture Indicated[place] [place]charge Patient Disposition: Still a Patient
--- NOTE | 2024-11-25 20:09 | ED.GENADUL1 ---
HPI HPI - General Adult General Chief complaint: Nausea/Vomiting/Diarrhea Stated complaint: NAUSEA Time Seen by Provider: 11/25/24 15:08 Source: patient Mode of arrival: walk-in History of Present Illness HPI narrative: The patient is a very pleasant 64-year-old male who presents to the emergency department complaining of just generally not feeling well. He particularly feels dizzy and unwell. The patient recently had an aneurysmal repair performed by Dr. Pierre. Patient was concerned that maybe something was going on with that. In addition, his primary care physician Dr. Davison has been treating him for a kidney infection. Since being placed on the ciprofloxacin patient does not feel well and he feels like it is making things worse. Dr. Recio signed over the patient to me at 7 PM when I arrived. The only thing pending on the patient at that time was a CT scan. She had already spoke to Dr. Pierre once about the patient and he instructed her to have contact again once the CT returned. At 8:05 PM, I received the final report of the CT scan and had an opportunity to speak with Dr. Pierre myself. Dr. Pierre indicated to me that everything sounded great. He did not think the pain or discomfort was at all related to the surgical repair. He indicated that the small intraluminal air noted in the inferior aneurysmal sac is normal for the first month after surgery. Otherwise the infrarenal abdominal aortic aneurysm was stable on direct comparison. There was no evidence of endoleak appreciated on the exam. I went back in and spoke with the patient. I feel at this time that it would be beneficial for the patient to be taken off ciprofloxacin because he is having the typical symptoms of dizziness and unsteadiness in a geriatric population. Will take him off of that. He is allergic to penicillin based drugs and therefore we will opt to provide the patient with some Bactrim. He will take 1 pill twice a day for the next 7 days. Patient should follow-up with Dr. Davison to make sure that the infection has completely resolved. The urinalysis through the hospital is unfortunately obscured because the patient is taking Pyridium. Culture pending. Diagnosis: Postoperative evaluation Dizziness Medication reaction Related Data Home Medications ?Medication ?Instructions ?Recorded ?Confirmed aspirin 81 mg chewable tablet 1 tab PO DAILY 01/24/23 11/25/24 atorvastatin 80 mg tablet 80 mg PO QPM 01/24/23 11/25/24 clopidogrel 75 mg tablet (Plavix) 75 mg PO DAILY 10/09/23 11/25/24 metoprolol tartrate 25 mg tablet 25 mg PO BID 11/16/24 11/25/24 nitroglycerin 0.4 mg sublingual 0.4 mg sublingual Q5M 11/16/24 11/25/24 tablet ciprofloxacin HCl 500 mg tablet 500 mg PO Q12H 11/25/24 11/25/24 phenazopyridine 200 mg tablet 200 mg PO TIDWMEAL 11/25/24 11/25/24 valsartan 40 mg tablet 40 mg PO DAILY 11/25/24 11/25/24 Previous Rx's ?Medication ?Instructions ?Recorded albuterol sulfate 90 mcg/actuation 2 inh inhalation Q4H PRN shortness 08/10/24 aerosol inhaler of breath or wheezing #8.5 grams sulfamethoxazole 800 1 tab PO BID 7 days #14 tabs 11/25/24 mg-trimethoprim 160 mg tablet (Bactrim DS) Allergies Allergy/AdvReac Type Severity Reaction Status Date / Time Penicillins Allergy Severe Hives Verified 11/25/24 14:53 pneumonia shot AdvReac Intermediate Unknown Uncoded 11/25/24 14:53 [facility] Medical History (Updated 11/25/24 @ 20:15 by Tavia Roberts DO) Hypercholesterolemia ?E78.00 - Pure hypercholesterolemia, unspecified (ICD-10) COPD (chronic obstructive pulmonary disease) ?J44.9 - Chronic obstructive pulmonary disease, unspecified (ICD-10) Social History Smoking status: Current every day smoker Little interest or pleasure in doing things: not at all Feeling down, depressed, or hopeless: not at all Exam Constitutional Vital Signs, click to edit/add: Last Vital Signs Temp 98.7 F 11/25/24 14:59 Pulse 62 11/25/24 16:58 Resp 20 11/25/24 16:58 BP 130/91 11/25/24 19:30 Pulse Ox 97 11/25/24 16:58 O2 Del Method Room Air 11/25/24 16:58 Course Vital Signs Vital signs: Vital Signs Temperature 98.7 F 11/25/24 14:59 Pulse Rate 58 L 11/25/24 14:59 Respiratory Rate 20 11/25/24 14:59 Blood Pressure 144/72 H 11/25/24 14:59 Pulse Oximetry 97 11/25/24 14:59 Oxygen Delivery Method Room Air 11/25/24 14:59 Temperature 98.7 F 11/25/24 14:59 Pulse Rate 62 11/25/24 16:58 Respiratory Rate 20 11/25/24 16:58 Blood Pressure 130/91 11/25/24 19:30 Pulse Oximetry 97 11/25/24 16:58 Oxygen Delivery Method Room Air 11/25/24 16:58 Medical Decision Making Lab Data Labs: Lab Results 11/25/24 11/25/24 Range/Units 15:15 15:20 WBC 7.8 (4.0-11.0) 10^3/uL RBC 4.11 L (4.70-6.10) 10^6/uL Hgb 12.4 L (14.0-18.0) g/dL Hct 37.9 L (42.0-54.0) % MCV 92.2 (80.0-94.0) fL MCH 30.2 (25.9-34.0) pg MCHC 32.7 (29.9-35.2) g/dL RDW 12.4 (11.0-15.0) % Plt Count 378 (150-450) 10^3/uL MPV 8.7 L (9.5-13.5) fL Neut % (Auto) 68.6 (43.0-75.0) % Lymph % (Auto) 16.4 L (20.5-60.0) % Maury % (Auto) 10.0 (1.7-12.0) % Eos % (Auto) 3.8 (0.9-7.0) % Baso % (Auto) 0.8 (0.2-2.0) % Neut # (Auto) 5.4 (1.4-6.5) 10^3/uL Lymph # (Auto) 1.3 (1.2-3.8) 10^3/uL Maury # (Auto) 0.8 (0.3-0.8) 10^3/uL Eos # (Auto) 0.3 (0.0-0.7) 10^3/uL Baso # (Auto) 0.1 (0.0-0.1) 10^3/uL Abs Immat Gran (auto) 0.03 (0.00-0.03) 10^3/uL Imm/Tot Granulo (auto) 0.4 (0.0-0.5) % Sodium 141 (136-145) mmol/L Potassium 4.4 (3.5-5.1) mmol/L Chloride 102 (98-107) mmol/L Carbon Dioxide 28.7 (21.0-32.0) mmol/L Anion Gap 14.7 BUN 21.0 H (7.0-18.0) mg/dL Creatinine 1.39 H (0.70-1.30) mg/dL Est GFR ( Amer) >60 (>=60 mL/min/1.73m^2) Est GFR (Non-Af Amer) 51 L (>=60 mL/min/1.73m^2) BUN/Creatinine Ratio 15.1 Glucose 116 H (74-106) mg/dL Calcium 9.4 (8.5-10.1) mg/dL Total Bilirubin 0.4 (0.2-1.0) mg/dL AST 26 (15-37) U/L ALT 57 (16-63) U/L Alkaline Phosphatase 84 (46-116) U/L Troponin I High Sens 6.1 (4.0-76.1) pg/mL Total Protein 7.7 (6.4-8.2) g/dL Albumin 2.8 L (3.4-5.0) g/dL Globulin 4.9 g/dL Albumin/Globulin Ratio 0.6 Urine Color Dk orange A (YELLOW) Urine Clarity Clear (CLEAR) Urine pH Color interference A (5.0-9.0) Ur Specific [place] Color interference A (1.005-1.025) Urine Protein Color interference A (NEG/TRACE) mg/dL Urine Glucose (UA) Color interference A (NEGATIVE) mg/dL Urine Ketones Color interference A (NEGATIVE) mg/dL Urine Occult Blood Color interference A (NEGATIVE) Urine Nitrite Color interference A (NEGATIVE) Urine Bilirubin Color interference A (NEGATIVE) Urine Urobilinogen Color interference A (0.2-1.0) EU/dL Ur Leukocyte Esterase Color interference A (NEGATIVE) Urine RBC 5-10 A (0-2) #/HPF Urine WBC 0-2 A (NONE SEEN) #/HPF Ur Squamous Epith Cells Few A (NONE/RARE) #/LPF Urine Crystals None seen (None Seen) #/HPF Urine Bacteria Small A (NONE SEEN) #/HPF Urine Casts None seen (NONE SEEN) #/LPF Urine Mucus Small A (NONE SEEN) Ur Culture Indicated[place] [place] Discharge Chief Complaint: Nausea/Vomiting/Diarrhea Clinical Impression: Dizziness, Postop check, Medication reaction Patient Disposition: Home, Self-Care Time of Disposition Decision: 20:14 Condition: Good Mode of Transportation: Private Vehicle Prescriptions / Home Meds: New sulfamethoxazole-trimethoprim [Bactrim DS] 800-160 mg tablet 1 tab PO BID 7 Days Qty: 14 0RF No Action aspirin 81 mg tablet,chewable 1 tab PO DAILY atorvastatin 80 mg tablet 80 mg PO QPM albuterol sulfate 90 mcg/actuation HFA aerosol inhaler 2 inh inhalation Q4H PRN (Reason: shortness of breath or wheezing) Qty: 8.5 0RF metoprolol tartrate 25 mg tablet 25 mg PO BID nitroglycerin 0.4 mg tablet, sublingual 0.4 mg sublingual Q5M Rx Instructions: do not exceed 3 doses per episode ciprofloxacin HCl 500 mg tablet 500 mg PO Q12H Rx Instructions: started on 12/17 For 10 days phenazopyridine 200 mg tablet 200 mg PO TIDWMEAL Rx Instructions: started on 11/24/24 for 2 days valsartan 40 mg tablet 40 mg PO DAILY clopidogrel [Plavix] 75 mg tablet 75 mg PO DAILY Print Language: Kenyan Referrals: Sukumar Davison MD [Primary Care Provider, Family Practice] - 1 week
== END 2024-11-25 20:57 | disposition home or self-care (01) ==
PROVIDERS: Emergency Provider Emergency Medicine; PCP Family Medicine
DX: R42 Dizziness and giddiness (principal); F17.200 Nicotine dependence, unspecified, uncomplicated; T36.8X5A Adverse effect of other systemic antibiotics, initial encounter; Z98.890 Other specified postprocedural states
CPT/HCPCS: 36415; 74174; 74176; 80053; 81001; 84484; 85025; 87086; 93005; 99285; Q9967

== ENCOUNTER 2024-11-26 13:10 | Emergency (ER) | payer OTHER, SELFPAY ==
[2024-11-26 13:12] VITALS: BP 140/72; PULSE 90; TEMP 36.5; O2SAT 94; BMI 37.6
[2024-11-26 14:17] LABS: Anion Gap 6.5; BUN Creatinine Ratio 15.3; Calcium 9.1 mg/dL (8.5-10.1); Carbon Dioxide 27.7 mmol/L (21.0-32.0); Chloride 101 mmol/L (98-107); Estimated GFR (African America 60 (>=60 mL/min/1.73m^2); Estimated GFR (Non-African Ame 49 (>=60 mL/min/1.73m^2); Glucose 109 mg/dL (74-106); Potassium 4.2 mmol/L (3.5-5.1); Sodium 131 mmol/L (136-145)
--- NOTE | 2024-11-26 16:43 | ED.NAVMDI1 ---
HPI - Nausea/Vomiting/Diarrhea General Chief complaint: Nausea/Vomiting/Diarrhea Stated complaint: VOMITING, DIARRHEA Time Seen by Provider: 11/26/24 13:46 Source: patient Mode of arrival: walk-in History of Present Illness HPI Narrative: The patient was evaluated yesterday for lower back pain is coming today with nausea vomiting and diarrhea that started this morning, the patient denies any exposure to any new medication he was provided with the Bactrim prescription instead of his ciprofloxacin and he did not start taking that yet Related Data Home Medications ?Medication ?Instructions ?Recorded ?Confirmed aspirin 81 mg chewable tablet 1 tab PO DAILY 01/24/23 11/25/24 atorvastatin 80 mg tablet 80 mg PO QPM 01/24/23 11/25/24 clopidogrel 75 mg tablet (Plavix) 75 mg PO DAILY 10/09/23 11/25/24 metoprolol tartrate 25 mg tablet 25 mg PO BID 11/16/24 11/25/24 nitroglycerin 0.4 mg sublingual 0.4 mg sublingual Q5M 11/16/24 11/25/24 tablet phenazopyridine 200 mg tablet 200 mg PO TIDWMEAL 11/25/24 11/25/24 valsartan 40 mg tablet 40 mg PO DAILY 11/25/24 11/25/24 Previous Rx's ?Medication ?Instructions ?Recorded albuterol sulfate 90 mcg/actuation 2 inh inhalation Q4H PRN shortness 08/10/24 aerosol inhaler of breath or wheezing #8.5 grams sulfamethoxazole 800 1 tab PO BID 7 days #14 tabs 11/25/24 mg-trimethoprim 160 mg tablet (Bactrim DS) Allergies Allergy/AdvReac Type Severity Reaction Status Date / Time Penicillins Allergy Severe Hives Verified 11/25/24 14:53 pneumonia shot AdvReac Intermediate Unknown Uncoded 11/25/24 14:53 Review of Systems ROS Status of ROS 10 or more systems reviewed and unremarkable except as noted in history and below [facility] Medical History (Updated 11/26/24 @ 14:27 by Anjana Recio MD) Hypercholesterolemia ?E78.00 - Pure hypercholesterolemia, unspecified (ICD-10) COPD (chronic obstructive pulmonary disease) ?J44.9 - Chronic obstructive pulmonary disease, unspecified (ICD-10) Social History Smoking status: Current every day smoker Little interest or pleasure in doing things: not at all Feeling down, depressed, or hopeless: not at all Exam Narrative Exam Narrative: Nurses notes and vital signs reviewed and patient is not hypoxic. General: Well-appearing and in no apparent distress. Skin: Warm, dry, no pallor noted. No rash. Head: Normocephalic, atraumatic. Neck: Supple, non-tender. Eye: Pupils are equal, round and EOMI. No scleral icterus. Cardiovascular: Regular Rate and Rhythm without murmur, gallop or rub. Respiratory: No accessory muscle use or respiratory distress. Lungs are clear to auscultation, no wheezing, rales or rhonchi Chest Wall: no tenderness Back: No midline thoracic or lumbar vertebral tenderness. No CVA tenderness Musculoskeletal: normal ROM, no calf or popliteal tenderness, no lower extremity edema/swelling GI: Abdomen is soft, non-distended. Normal bowel sounds. No masses appreciated. No tenderness to palpation. No rebound, guarding, or rigidity noted. Neurological: A&O x4. No cranial nerve dysfunction observed. No truncal ataxia. Moves all extremities. Sensation intact. Psychiatric: Cooperative and interactive. Normal mood and affect. Constitutional Vital Signs, click to edit/add: Last Vital Signs Temp 97.7 F 11/26/24 13:12 Pulse 90 11/26/24 13:12 Resp 16 11/26/24 13:12 BP 140/72 11/26/24 13:12 Pulse Ox 94 L 11/26/24 13:12 O2 Del Method Room Air 11/26/24 13:12 Course Vital Signs Vital signs: Vital Signs Temperature 97.7 F 11/26/24 13:12 Pulse Rate 90 11/26/24 13:12 Respiratory Rate 16 11/26/24 13:12 Blood Pressure 140/72 11/26/24 13:12 Pulse Oximetry 94 L 11/26/24 13:12 Oxygen Delivery Method Room Air 11/26/24 13:12 Temperature 97.7 F 11/26/24 13:12 Pulse Rate 90 11/26/24 13:12 Respiratory Rate 16 11/26/24 13:12 Blood Pressure 140/72 11/26/24 13:12 Pulse Oximetry 94 L 11/26/24 13:12 Oxygen Delivery Method Room Air 11/26/24 13:12 MDM - Nausea/Vomiting/Diarrhea MDM Narrative Medical decision making narrative: The patient blood workup showed no acute significant pathology compared to his baseline kidney function Right now the patient just to continue hydration and he is to make sure that he stopped taking the ciprofloxacin and start taking Bactrim he can use the Zofran he was provided with before Patient to continue hydration The patient is to follow up with primary care physician in next 2-3 days or to return to the emergency department should any of the signs or symptoms worsen or new symptoms develop. The patient agrees with the following Diagnosis and Treatment plan and the patient will be discharged home. Lab Data Labs: Lab Results 11/26/24 Range/Units 14:02 Sodium 131 L (136-145) mmol/L Potassium 4.2 (3.5-5.1) mmol/L Chloride 101 (98-107) mmol/L Carbon Dioxide 27.7 (21.0-32.0) mmol/L Anion Gap 6.5 BUN 22.0 H (7.0-18.0) mg/dL Creatinine 1.44 H (0.70-1.30) mg/dL Est GFR ( Amer) 60 (>=60 mL/min/1.73m^2) Est GFR (Non-Af Amer) 49 L (>=60 mL/min/1.73m^2) BUN/Creatinine Ratio 15.3 Glucose 109 H (74-106) mg/dL Calcium 9.1 (8.5-10.1) mg/dL Discharge Plan Discharge Chief Complaint: Nausea/Vomiting/Diarrhea Clinical Impression: Gastroenteritis Patient Disposition: Home, Self-Care Time of Disposition Decision: 14:27 Condition: Good Mode of Transportation: Private Vehicle Prescriptions / Home Meds: Discontinued ciprofloxacin HCl 500 mg tablet 500 mg PO Q12H Rx Instructions: started on 12/17 For 10 days No Action aspirin 81 mg tablet,chewable 1 tab PO DAILY atorvastatin 80 mg tablet 80 mg PO QPM albuterol sulfate 90 mcg/actuation HFA aerosol inhaler 2 inh inhalation Q4H PRN (Reason: shortness of breath or wheezing) Qty: 8.5 0RF metoprolol tartrate 25 mg tablet 25 mg PO BID nitroglycerin 0.4 mg tablet, sublingual 0.4 mg sublingual Q5M Rx Instructions: do not exceed 3 doses per episode phenazopyridine 200 mg tablet 200 mg PO TIDWMEAL Rx Instructions: started on 11/24/24 for 2 days valsartan 40 mg tablet 40 mg PO DAILY sulfamethoxazole-trimethoprim [Bactrim DS] 800-160 mg tablet 1 tab PO BID 7 Days Qty: 14 0RF clopidogrel [Plavix] 75 mg tablet 75 mg PO DAILY Print Language: Frisian Instructions: Gastroenteritis (DC) Referrals: Sukumar Davison MD [Primary Care Provider, Family Practice] - 1 week Discharge Date/Time: 11/26/24 14:42
== END 2024-11-26 14:42 | disposition home or self-care (01) ==
PROVIDERS: Emergency Provider Emergency Medicine; PCP Family Medicine
DX: K52.9 Noninfective gastroenteritis and colitis, unspecified (principal); F17.200 Nicotine dependence, unspecified, uncomplicated
CPT/HCPCS: 36415; 80048; 99283

== ENCOUNTER 2025-01-20 12:50 | Emergency (ER) | payer OTHER, SELFPAY ==
--- OUTSIDE RECORDS SUMMARY | 2025-01-20 12:58 | XMS_ITS | CCD ---
Author Organization [facility] Care Team Providers Care [facility] Nurse Name Role Phone DO Wagner Marrufo Attending Provider Brock Modi Unavailable Wagner Marrufo Unavailable DO Wagner Marrufo Attending Provider MD Brock Modi Primary Care Provider MD Fili[facility] Admit Provider [phone] MD Barbara Rivero Attending Provider Brock Modi Unavailable Unavailable Unavailable Adi Campos Unavailable ZELALEM Faustin Attending Provider [phone] MD Adi Campos Attending Provider KULDEEP, DR CAR Torres Attending Unavailable KULDEEP, DR CAR Torres Admitting Unavailable [facility] ., DR JUSTIN Urbano Consulting Unavailable LY, [...] MODI, DR BROCK Urbano Primary Care Unavailable ALPHONSE, DR ARLIN Simpson Consulting Unavailable ALPHONSE, DR ARLIN Simpson Attending Unavailable ALPHONSE, DR ARLIN Simpson Admitting Unavailable MODI, DR BROCK Urbano Primary Care Unavailable AHDOOT, CYNTHIA Consulting Unavailable CUNHA, DR ARLIN Simpson Consulting Unavailable ALPHONSE, DR [...] ilable Ly, Dr. Brock Case Primary Care Janine Brown Attending Unavailable Janine Cunha Referring Unavailable Ly, Dr. Brock Case Primary Care Unalacy ailable Ly, Dr. Brock Case Primary Care Martin ailJanine Najera Attending Unavailable Alphonse, Janine Referring Unavailable Modi, Dr. Brock Case Primary Care Martin Webber, Dr. Alok Gonzalez Attending Leava ilable Akbar, Dr. Alok Gonzalez Referring Unava ilable Ly, Dr. Brock Case Primary Care Brock Leon MD Primary Care Provider Brock Modi MD Primary Care Provider Unavailable Primary Care Provider UnavailSeymour Fischer MD Primary Care Provider [phone] Seymour Harper MD Primary Care Provider [phone] ALOK WEBBER Attending Unavailable ALOK WEBBER Referring Unavailable SEYMOUR HARPER Primary Care Unavailable Seymour Harper MD Primary Care Provider GEOVANY, MOHAMED F Referring Unavailable SEYMOUR HARPER Primary Care Unavailable GEOVANY, MOHAMED F Admitting Unavailable GEOVANY, MOHAMED F Attending Unavailable SEYMOUR HARPER Primary Care Unavailable Anjana Recio MD Attending Provider Diab, Anjana A Attending Unavailable Diab, Anjana A Admitting Unavailable MORENODWAYNE MULLINSSarwat Riri Referring Unavailable MODI, BROCK E Primary Care Unavailable GEOVANY, MOHAMED F Attending Unavailable GEOVANY, MOHAMED F Referring Unavailable HOY, SEYMOUR M Primary Care Unavailable GEOVANY, MOHAMED F Attending Unavailable GEOVANY, MOHAMED F Referring Unavailable HOY, SEYMOUR M Primary Care Unavailable GEOVANY, MOHAMED F Attending Unavailable GEOVANY, MOHAMED F Referring Unavailable HOY, SEYMOUR M Primary Care Unavailable GEOVANY, MOHAMED F Attending Unavailable MODI, BROCK E Referring Unavailable HOY, SEYMOUR M Primary Care Unavailable GEOVANY, MOHAMED F Attending Unavailable HOY, SEYMOUR M Referring Unavailable HOY, SEYMOUR M Primary Care Unavailable MODI, BROCK E Referring Unavailable MODI, BROCK E Primary Care Unavailable Allergies Allergy Classification Reported Allergen(s) Allergy Type Date of Onset Reaction(s) Facility (20 sources) Ciprofloxacin Drug Allergy 10-26-19 24 Nausea & Blurred vision, Comment:nausea and blurred vision [facility] (20 sources) Substance with penicillin structure and antibacterial mechanism of action (substance) Drug allergy Edema, Unknown [employer] Other (20 sources) Pneumococcal 7-Zulma Conj Vacc Drug allergy undefined, Comment:pneumo nococcal 23 [employer] Other (20 sources) Penicillins; Translations: [Penicillins] Propensity to adverse reactions 05-29-20 13 Hives, Swelling [facility] (20 sources) Pneumococcal vaccine; Translations: [PNEUMOCOCCAL VACCINE] Drug Allergy 08-08-19 22 Other, Nausea And Vomiting [facility] (8 sources) Pneumococcal vaccine; Translations: [Pneumococcal Vaccines] Drug Allergy Hives [place] [id number] DO Work Phone: (2 sources) Penicillin Drug Allergy 07-29-19 16 Unknown [employer] Other (2 sources) patient allergy list reviewed by nurse or physicia Propensity to adverse reactions 07-29-19 16 Comment:Done [employer] Other (2 sources) Allergies Reconciled Propensity to adverse reactions Unknown [employer] Other (7 sources) pneumococcal 7-valent conjugate to; Translations: [pneumococcal 7-valent conjugate to] Allergy to substance 10-26-19 Comment:pneumo nococcal 23 [facility] (10 sources) Ciprofloxacin; Translations: [CIPROFLOXACIN HCL] Drug Allergy 08-08-19 [facility] [employer] (1 source) Ciprofloxacin Drug Allergy 05-29-20 [facility] Repository Medications Current Medications Medication Drug Class(es) Dates Sig (Normalized) Sig (Original) AeroChamber MV - (5 sources) Start: 07-30-2022 AeroChamber MV - as directed Jul, Active aspirin 81 mg chewable tablet (20 sources) Platelet Aggregation Inhibitor, Nonsteroidal Anti-inflammatory Drug Start: 06-21-2024 take 1 tablet by mouth once daily Aspirin 81 mg tablet,chewable Active 0 .ROUTE .COMPLEX June 21, 2024 2:54pm TAKE 1 TABLET BY MOUTH EVERY DAY Start: 10-12-2022 End: 06-21-2024 take 1 tablet by mouth once daily Aspirin (Children's Aspirin) 81 mg Tablet,Chewable Discontinued 81 MG PO Daily 90 90 October 12, 2022 12:00am June 21, 2024 2:54pm take 1 tablet by da th once daily aspirin 81 mg EC tablet Take 1 [...] tablet by mouth once daily at bedtime Atorvastatin 80 mg tablet Active 80 MG PO Daily at bedtime October 26, 2023 12:00am Start: 10-21-2022 take 1 tablet by da th at bedtime Atorvastatin Calcium 80 MG Oral Tablet TAKE 1 TABLET AT BEDTIME. Quantity: 90 Refills: 3 Ordered: 21-Oct-2022 Janine Wilde Start : 21-Oct-2022 Active clopidogrel 75 mg oral tablet (11 sources) P2Y12 Platelet Inhibitor Start: 09-14-2023 End: 09-20-2024 take 1 tablet by mouth once daily Clopidogrel 75 mg tablet Active 75 MG PO Daily October 26, 2023 12:00am nebulizer machine (5 sources) nebulizer breanne e 1 kit inhalation 4 times daily Active Nitro Sublingual 0.4 0.4mg (20 sources) Nitro Sublingual 0.4 0.4mg 1 Sublingual Every 5min x3 Active nitroglycerin 0.4 mg sublingual tablet (20 sources) Nitrate Vasodilator Start: 10-12-2022 Nitroglycerin 0.4 mg tablet, sublingual Active 0.4 MG SUBLINGUAL Q5M as needed for chest pain October 12, 2022 12:00am do not exceed 3 doses per episode ondansetron 4 mg disintegrating oral tablet (19 sources) Serotonin-3 Receptor Antagonist Start: 07-25-2021 End: 10-31-2024 take 1 tablet by mouth every eight hours Ondansetron 4 mg tablet,disintegrati ng Active 4 MG PO Every 8 hours May 29, 2024 1:00am Start: 07-24-2021 End: 10-31-2024 ondansetron (ZOFRAN) 4 mg ta blet 07/24/2021 10/31/2024 Discontinued Zofran Active predniSONE 20 mg oral tablet (10 sources) Start: 02-04-2023 take 2 tablets by mouth every twenty-four hours predniSONE 20 MG 2 tablets Orally Once a day for 5 days Jan, Active Start: 11-12-2022 take 2 tablets by mo [facility] every twenty-four hours predniSONE 20 MG 2 tablets Orally Once a day for 5 days Oct, Active Start: 07-30-2022 take 1 tablet by [facility] every twenty-four hours predniSONE 10 MG 1 [...] 1 tablet by mouth once daily Valsartan 40 mg tablet Active 0 .ROUTE .COMPLEX 90 May 25, 2024 9:21am TAKE 1 TABLET BY MOUTH EVERY DAY Start: 10-26-2023 End: 02-17-2024 take 1 tablet by mouth once daily Valsartan 40 mg tablet Discontinued 40 MG PO Daily November 17, 2023 10:48pm February 17, 2024 11:37am Start: 10-04-2023 End: 10-26-2023 take 1 tablet by mouth once daily Valsartan 80 mg tablet Discontinued 80 MG PO Daily October 04, 2023 12:00am October 26, 2023 3:05pm Start: 10-13-2022 End: 10-04-2023 take 1 tablet by mouth once daily at bedtime Valsartan 160 mg tablet Discontinued 160 MG PO Daily at bedtime October 13, 2022 12:00am October 04, 2023 3:37pm Completed/Discontinued Medications Medication Drug Class(es) Dates Sig (Normalized) Sig (Original) acetaminophen 325 mg oral tablet (16 sources) Start: 10-10-2022 End: 10-01-2023 take 2 tablets by mouth every six hours as needed for pain Acetaminophen (Tylenol) 325 mg Tablet Discontinued 650 MG PO Q6H as needed for Pain October 10, 2022 12:00am October 01, 2023 3:07pm acetaminophen 32 5 mg capsule Take by mouth. Active [id number] 200 actuat albuterol 0.09 mg/actuat metered dose inhaler (20 sources) beta2-Adrenergic Agonist Start: 10-10-2022 End: 10-01-2023 take 1 puff(s) by inhalation every four hours as needed Albuterol Sulfate 90 mcg/actuation HFA aerosol inhaler Discontinued 1 PUFF INHALATION Q4H as needed for Shortness Of Breath October 10, 2022 12:00am October 01, 2023 [...] tablet (20 sources) Benzodiazepine Start: 06-04-2023 End: 10-31-2024 take 1 tablet by mouth twice daily as needed for anxiety Alprazolam 1 mg tablet Discontinued 1 MG PO Twice daily as needed for anxiety 60 October 04, 2023 10:17am October 04, 2023 10:29am Start: 04-05-2023 ALPRAZolam 1 M G TAKE [...] day prn for 30 days November, Active azithromycin 250 mg oral tablet (6 sources) Macrolide Antimicrobial Start: 07-31-2021 End: 10-31-2024 azithromycin (ZITHROMAX) 250 mg tablet Take 250 mg by mouth. 07/31/2021 10/31/2024 Discontinued ciprofloxacin 500 mg oral tablet (6 sources) Quinolone Antimicrobial Start: 07-22-2021 End: 10-31-2024 take 1 tablet by mouth in the morning, then take 1 tablet by mouth at bedtime ciprofloxacin HCl (CIPRO) 500 mg tablet Take 1 tablet (500 mg total) by mouth in the morning and 1 tablet (500 mg total) before bedtime. 07/22/2021 10/31/2024 Discontinued doxycycline hyclate 100 mg delayed release oral tablet (7 sources) Tetracycline-class Drug take 1 tablet by mouth every twelve hours Doxycycline Hyclate 100 MG 1 tablet Orally Twice a day for 10 days Not-Taking/PRN Fluticasone Propionate (14 sources) Corticosteroid Start: 10-10-2022 End: 10-13-2022 Fluticasone Propionate 100 mcg/actuation blister with device Discontinued 1 INH INHALATION Twice daily October 10, 2022 12:00am October 13, 2022 12:26pm Start: 10-10-2022 End: 10-13-2022 Fluticasone Propionate Discontinued [...] 1 INH INHALATION Twice daily 60 October 12, 2022 11:00pm October 01, 2023 [...] 1 puff(s) by inhalation onc e daily Sukhjinderlemeaghan Ellipta 100-62.5-25 MCG/ACT 1 puff Inhalation Once a day Active losartan potassium 100 mg oral tablet (20 sources) Angiotensin 2 Receptor Maryjane Start: 10-10-2022 End: 10-13-2022 take 1 tablet by mouth once daily Losartan 100 mg tablet Discontinued 100 MG PO Daily October 10, 2022 12:00am October 13, 2022 12:14pm Start: 02-09-2022 take 1 tablet by da th in the morning losartan (COZAAR) 50 mg tablet Take 1 tablet (50 mg total) by mouth in the morning. 02/09/2022 Active meloxicam 15 mg oral tablet (11 sources) Nonsteroidal Anti-inflammatory Drug Start: 07-08-2021 End: 10-31-2024 meloxicam (MOBIC) 15 mg tablet 07/08/2021 10/31/2024 Discontinued methylPREDNISolone 4 mg oral tablet (6 sources) Corticosteroid Start: 10-04-2023 End: 10-26-2023 take 1 tablet by mouth once Methylprednisolone (Medrol (Maury)) 4 mg tablets,dose pack Discontinued 0 PO per package directions October 04, 2023 12:00am October 26, 2023 2:42pm PO PER PKG DIR for 6 days metoprolol tartrate 25 mg oral tablet (16 sources) beta-Adrenergic Maryjane Start: 10-26-2023 End: 09-20-2025 take 1 tablet by mouth twice daily Metoprolol Tartrate 25 mg tablet Discontinued 25 MG PO Twice daily October [...] (20 sources) Aldosterone Antagonist Start: End: take 1 tablet by mouth once daily in the morning Spironolactone 25 mg tablet Discontinued 25 MG PO Every morning 30 October 13, 2022 12:00am October 26, 2023 3:02pm ticagrelor 90 mg oral tablet (20 sources) Start: End: take 1 tablet by mouth once Ticagrelor (Brilinta) 90 mg tablet Discontinued 90 MG PO Once October 04, 2023 3:21pm December 13, 2023 2:05pm Start: 10-12-2022 End: 10-04-2023 take 1 tablet by mouth twice daily Ticagrelor (Brilinta) 90 mg Tablet Discontinued 90 MG PO Twice daily 180 90 October 12, 2022 12:00am October 04, 2023 3:22pm Brilinta 90mg Ta kke as directed Active triamcinolone acetonide 40 mg/ml injectable suspension (20 sources) Corticosteroid Start: 09-09-2022 Kenalog-40 November, 40 mg Problems Active Problems Problem Classification Problem Date Documented Date Episodic/Chronic Acute myocardial infarction (13 sources) Myocardial infarction; Translations: [Non-ST elevation (NSTEMI) myocardial infarction] Onset: 10-13-2022 10-10-2022 Chronic Comment on above: Problem List clean-u p per request of Phys. EHR Cmte Allergic reactions (11 sources) Allergy status to other antibiotic agents status; Translations: [Drug allergy, antibiotic] Episodic Anxiety disorders (20 sources) Anxiety; Translations: [Other specified anxiety disorders] Onset: 03-05-2022 Chronic Aortic; peripheral; and visceral artery aneurysms (20 sources) Abdominal aortic aneurysm without rupture; Translations: [Abdominal aortic aneurysm, without rupture, unspecified] Onset: 03-05-2022 08-22-2023 Chronic Asthma (20 sources) Asthma without status asthmaticus; Translations: [Unspecified asthma, uncomplicated] Onset: 03-05-2022 03-05-2022 Chronic Cardiac dysrhythmias (12 sources) EKG: ventricular tachycardia; Translations: [Ventricular tachycardia seen on library monitor] 10-11-2022 Chronic Comment on above: Problem List clean-u p per request of Phys. EHR Cmte Chronic obstructive pulmonary disease and bronchiectasis (20 sources) Acute exacerbation of chronic obstructive airways disease; Translations: [Chronic obstructive pulmonary disease with (acute) exacerbation] Onset: 07-29-2015 Chronic Comment on above: Problem List clean-u p per request of Phys. EHR Cmte Chronic obstructive pulmonary disease and bronchiectasis (12 sources) Bronchitis; Translations: [Bronchitis, not specified as acute or chronic] Episodic Conduction disorders (20 sources) Complete atrioventricular block; Translations: [Atrioventricular block, complete] Onset: 08-06-2023 10-11-2022 Chronic Comment on above: Problem List clean-u p per request of Phys. EHR Cmte Coronary atherosclerosis and other heart disease (20 sources) Coronary arteriosclerosis; Translations: [Atherosclerotic heart disease of tribe coronary artery without angina pectoris] Onset: 08-06-2023 Chronic Disorders of lipid metabolism (14 sources) Mixed hyperlipidemia; Translations: [Mixed hyperlipidemia] Onset: 08-06-2023 09-14-2023 Chronic Essential hypertension (20 sources) Hypertensive disorder; Translations: [Essential (primary) hypertension] Onset: 03-05-2022 10-10-2022 Chronic Comment on above: Problem List clean-u p per request [facility] Phys. 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] Onset: 10-13-2022 Episodic Other aftercare (3 sources) Patient encounter status; Translations: [Encounter for therapeutic drug level monitoring] Onset: 10-02-2024 10-31-2024 Episodic Other aftercare (1 source) Encounter for therapeutic drug level monitoring; Translations: [Encounter for therapeutic drug level monitoring] Onset: 10-02-2024 Episodic Other circulatory disease (2 sources) Elevated [...] [Muscle spasm] Episodic Other connective tissue disease (4 sources) Pain in right lower limb; Translations: [Pain in right leg] 01-05-2024 Episodic Other connective tissue disease (2 sources) Pain in right leg; Translations: [Pain in limb] 01-05-2024 Episodic Other lower respiratory disease (9 sources) Hypoxemia; Translations: [Hypoxemia] 10-11-2022 Episodic Comment on above: Problem List clean-u p per request of Phys. EHR Cmte Other lower respiratory disease (3 sources) Hypoxemia; [...] of lung field] Onset: 09-20-2024 Episodic Other non-traumatic joint disorders (8 sources) Pain in right knee; Translations: [Right knee pain] Episodic Other non-traumatic joint disorders (2 sources) Effusion, right knee Episodic Other non-traumatic joint disorders (14 sources) Shoulder joint pain; Translations: [Pain in right shoulder] Onset: 05-02-2018 Episodic Other non-traumatic joint disorders (20 sources) Joint pain; Translations: [Pain in unspecified joint] Onset: 03-05-2022 10-01-2023 Episodic Other non-traumatic joint disorders (1 source) Hip pain; Translations: [Hip joint pain] Episodic Other nutritional; endocrine; and metabolic disorders (20 sources) Obesity; Translations: [Obesity, unspecified] 10-01-2023 Chronic Other nutritional; endocrine; and metabolic disorders (4 sources) Obese class I; Translations: [Body mass index (BMI) 32.0-32.9, adult] Chronic Other nutritional; endocrine; and metabolic disorders (14 sources) Body mass index 30+ - obesity; [...] pulmonary collapse (20 sources) Atelectasis; Translations: [Atelectasis] Episodic Pneumonia (except that caused by tuberculosis or sexually transmitted disease) (20 sources) Pneumonia; Translations: [Pneumonia, unspecified organism] Episodic Residual codes; unclassified (9 sources) Sleep apnea; Translations: [Sleep apnea, unspecified] 10-11-2022 Chronic Comment on above: Problem List clean-u p per request of Phys. EHR Cmte Residual codes; unclassified (3 sources) Sleep apnea, [...] disorders Chronic Residual codes; unclassified (7 sources) Dyssomnia; Translations: [Other sleep disorders] Onset: 07-29-2015 03-05-2022 Chronic Residual codes; unclassified (6 sources) Tobacco use; Translations: [Tobacco use disorder] Episodic Residual codes; unclassified (14 sources) Tobacco user; Translations: [Tobacco use] Onset: 07-29-2015 10-10-2022 Episodic Comment on above: Problem List clean-u p per request of Phys. EHR Cmte Residual codes; unclassified (19 sources) Tobacco dependence [...] therapeutic use] Onset: 05-04-2018 Unclassified (1 source) Patient encounter status 09-20-2024 Unclassified (3 sources) Infrarenal abdominal aortic aneurysm, without rupture; Translations: [Infrarenal abdominal aortic aneurysm, without rupture] Onset: 10-02-2024 Unclassified (1 source) Autogenerated Problem Onset: 11-09-2024 11-09-2024 Unclassified (1 source) AAA, CT abd[facility]pelvis at [facility], carotids [facility] Onset: 09-14-2024 Urinary tract infections (1 source) Acute cystitis without hematuria Episodic Past or Other Problems Problem Classification Problem Date Documented Da te Episodic/Chronic Cardiac dysrhythmias (6 sources) Sinus tachycardia; Translations: [Other specified cardiac dysrhythmias] Onset: 08-06-2023 Resolved: 09-14-2023 09-14-2023 Episodic E Codes: Adverse effects of medical drugs (7 sources) Adverse reaction to bacterial vaccines; Translations: [Adverse effect of other bacterial vaccines, initial encounter] Onset: 05-04-2018 03-05-2022 Episodic Fluid and electrolyte disorders (1 source) Dehydration; Translations: [DEHYDRATION] Onset: 07-16-2022 Episodic Malaise and fatigue (18 sources) Fatigue; Translations: [Other fatigue] Onset: 03-16-2019 03-05-2022 Episodic Mood disorders (1 source) Mood disorders Onset: 11-14-2024 11-14-2024 Nausea and vomiting (20 sources) Nausea; Translations: [Nausea] Onset: 03-05-2022 Episodic Noninfectious gastroenteritis (1 source) Noninfective gastroenteritis and colitis, unspecified; Translations: [NONINFECTIVE GE AND COLITIS UNS] Onset: 07-12-2022 Episodic Other circulatory disease (7 sources) Increased diastolic arterial pressure; Translations: [Elevated blood-pressure reading, without diagnosis of hypertension] Onset: 03-05-2022 03-05-2022 Episodic Other circulatory disease (6 sources) Carotid bruit; Translations: [Other specified symptoms [...] 08-01-2015 03-05-2022 Episodic Other lower respiratory disease (16 sources) Dyspnea on exertion; Translations: [Other forms of dyspnea] Onset: 03-05-2022 03-05-2022 Episodic Other lower respiratory disease (3 sources) Shortness of breath; Translations: [SHORTNESS OF BREATH] Onset: 02-03-2022 Episodic Other lower respiratory disease (11 sources) Lung mass; Translations: [Other nonspecific abnormal finding of lung field] Onset: 03-05-2022 03-05-2022 Episodic Other non-traumatic joint disorders (2 sources) Arthralgia of the pelvic region and thigh; Translations: [Pain in joint, pelvic region and thigh] Onset: 08-24-2016 Episodic Other non-traumatic joint disorders (7 sources) Pain of right shoulder joint; Translations: [Pain in right shoulder] Onset: 03-05-2022 03-05-2022 Episodic Residual codes; unclassified (18 sources) Contact with and (suspected) exposure to other hazardous substances; Translations: [Exposure to potentially hazardous substance] Onset: 03-05-2022 03-05-2022 Episodic Residual codes; unclassified (2 sources) Dyssomnia; Translations: [Other sleep disturbances] Onset: 07-29-2015 Episodic Residual codes; unclassified (1 source) Pain, unspecified; Translations: [Pain, unspecified] Onset: 09-14-2024 Episodic Screening and history of mental health [...] Range Facility CT CTA ABD AND PELVISon 05-[address]A ABD AND PELVIS CT CTA ABD AND PEL VIS CTA ABDOMEN/PELVIS HISTORY: Abdominal aortic aneurysm COMPARISON: 09/11/2024 TECHNIQUE: Multidetector CT angiogram through the abdomen and pelvis performed following the uncomplicated intravenous administration of 100 mL Omnipaque 350. 3-D maximum intensity projection reconstructions constructed under concurrent physician supervision on a independent workstation. 3-D images obtained to improve visualization of vascular detail. FINDINGS: Status post endograft repair of abdominal aortic aneurysm. Endograft is widely patent. Excluded aneurysm sac measures 5.6 x 5.0 cm. No evidence of endoleak. Irregular atherosclerotic plaque in the distal descending aorta. There is a focal area of ulcerated plaque versus penetrating atheromatous ulcer in the left aspect of the distal descending aorta (axial image 26), which is unchanged. The celiac axis, SMA, and renal arteries are patent. Visualized iliac and femoral vessels appear patent. A chronic area of consolidation containing calcifications in the medial aspect of the right lower lobe is similar to previous studies, incompletely characterized on this study. Emphysema. The liver, gallbladder, spleen, adrenal glands, pancreas, and kidneys are unremarkable. No enlarged abdominal or pelvic lymph nodes. The bladder is unremarkable. The small and large bowel are of normal caliber with no evidence of bowel wall thickening. Colonic diverticulosis without acute inflammation. No free fluid in the abdomen or pelvis. No free intraperitoneal air. Multilevel degenerative changes in the spine. 3D reformatted images confirm the source data findings. IMPRESSION: * Status post endograft repair of abdominal aortic aneurysm with widely patent endograft, excluded aneurysm sac measuring 5.6 x 5.0 cm, and no evidence of endoleak. * Ulcerated plaque/penetrating ulcer arising from the left aspect of the descending thoracic aorta measuring 1.1 x 0.6 cm similar to previous study. * Chronic area of consolidation containing calcifications in the medial aspect of the right lower lobe incompletely characterized on this study though appears to have been present previously. As indicated consider dedicated CT imaging of the chest. All CT scans at this facility use dose modulation, iterative reconstruction, and/or weight based dosing when appropriate to reduce radiation dose to as low as reasonably achievable. Finalized by Jordy Lane MD on 12/13/2024 8:50 AM Normal [facility] Urine Cultureon 11-25-2024 Bacteria identified Cx Nom (U) 10,000 colonies/ml mixed bacterial skin contaminants 2 Days PERFORMED BY: [address] [id number] PATHOLOGIST [employer] GRADER ROM COOPER M.D. Normal [facility] Comment on above: Performed By: #### C UU #### [address] [place] [address] [facility] BASIC METABOLIC PANLon 11-15 Anion gap [Moles/Vol] 9 mmol/L Normal 5-15 [facility] Comment on above: Performed By: #### C BCA, BMP, PINR, 67363-8 #### [facility] ([id number]) [address], [address] [place] [address] Calcium [Mass/Vol] 8.6 mg/dL Normal 8.5-10.5 [facility] Comment on above: Performed By: #### C BCA, BMP, PINR, 81058-2 #### [facility] ([id number]) [address], [address] [place] [address] Chloride [Moles/Vol] 109 mmol/L Normal 98-109 [facility] Comment on above: Performed By: #### C BCA, BMP, PINR, 02661-9 #### [facility] ([id number]) [address], [address] [place] [address] CO2 [Moles/Vol] 24 mmol/L Normal 22-32 [facility] Comment on above: Performed By: #### C BCA, BMP, PINR, 27315-3 #### [facility] ([id number]) [address], [address] [place] [address] Creatinine [Mass/Vol] 1.22 mg/dL Normal 0.60-1.30 [facility] Comment on above: Result Comment: METH OD TRACEABLE TO IDMS STANDARD Performed By: #### C BCA, BMP, PINR, 71006-8 #### [facility] ([id number]) [address], [address] [place] [address] GFR/1.73 sq M.predicted among non-blacks MDRD (S/P/Bld) [Vol rate/Area] 66 mL/min/{1.73_m2} Normal >59 [facility] Comment on above: Result Comment: Reported eGFR is based on the CKD-EPI 2020 equation that does not use a race coefficient. Performed By: #### C BCA, BMP, PINR, 98154-4 #### [facility] ([id number]) [address], [address] [place] [address] Glucose [Mass/Vol] 155 mg/dL High 65-99 [facility] Comment on above: Performed By: #### C BCA, BMP, PINR, 18579-9 #### [facility] ([id number]) [address] [address] [place] [address] Potassium [Moles/Vol] 4.3 mmol/L Normal 3.5-5.0 [facility] Comment on above: Performed By: #### C BCA, BMP, PINR, 19183-1 #### [facility] ([id number]) [address] [address] Sodium [Moles/Vol] 142 mmol/L Normal 134-146 [facility] Comment on above: Performed By: #### C BCA, BMP, PINR, 39200-1 #### [facility] ([id number]) [address] [address] [place] [address] Urea nitrogen [Mass/Vol] 24 mg/dL Normal 5-27 [facility] Comment on above: Performed By: #### C BCA, BMP, PINR, 84006-0 #### [facility] ([id number]) [address] [address] CBC AND AUTO DIFFon 11-16-19 25 ABSOLUTE BASOPHIL 0.0 X10E9/L Normal 0.0-0.2 [facility] Comment on above: Performed By: #### C BCA, BMP #### [facility] ([id number]) [address] [address] [place] [address] ABSOLUTE NEUTROPHIL 7.6 X10E9/L High 1.5-6.6 [facility] Comment on above: Performed By: #### C BCA, BMP #### [facility] ([id number]) [address], [address] [place] [address] Basophils/100 WBC (Bld) 0.2 % Normal [facility] Comment on above: Performed By: #### C BCA, BMP #### [facility] ([id number]) [address] [place] [address] Eosinophils (Bld) [#/Vol] 0.0 10*3/uL Normal 0.0-0.4 [facility] Comment on above: Performed By: #### C SEBASTIÁN, BMP #### [facility] ([id number]) [address] [address] [place] [address] Eosinophils/100 WBC (Bld) 0.0 % Normal [facility] Comment on above: Performed By: #### C SEBASTIÁN, BMP #### [facility] ([id number]) [address] [place] [address] Erythrocyte distribution width (RBC) [Ratio] 14.0 % Normal 11.5-15.0 [facility] Comment on above: Performed By: #### C BCA, BMP #### [facility] ([id number]) [address] [place] [address] Hematocrit (Bld) [Volume fraction] 33.0 % Low 39-49 [facility] Comment on above: Performed By: #### C BCA, BMP #### [facility] ([id number]) [address] [place] [address] Hemoglobin (Bld) [Mass/Vol] 11.7 g/dL Low 13.0-17.0 [facility] Comment on above: Performed By: #### C BCA, BMP #### [facility] ([id number]) [address] [place] [address] Lymphocytes (Bld) [#/Vol] 0.9 10*3/uL Low 1.0-3.5 [facility] Comment on above: Performed By: #### C SEBASTIÁN, BMP #### [facility] ([id number]) [address] [place] [address] Lymphocytes/100 WBC (Bld) 9.4 % Normal [facility] Comment on above: Performed By: #### C SEBASTIÁN, BMP #### [facility] ([id number]) [address] [place] [address] MCH (RBC) [Entitic mass] 32.2 pg Normal 27-34 [facility] Comment on above: Performed By: #### C SEBASTIÁN, BMP #### [facility] ([id number]) [address] [place] [address] MCHC (RBC) [Mass/Vol] 35.3 g/dL Normal 32-36 [facility] Comment on above: Performed By: #### C SEBASTIÁN, BMP #### [facility] ([id number]) [address] [place] [address] MCV (RBC) [Entitic vol] 91 fL Normal 80-100 [facility] Comment on above: Performed By: #### C SEBASTIÁN, BMP #### [facility] ([id number]) [address] [place] [address] Monocytes (Bld) [#/Vol] 0.8 10*3/uL Normal 0-0.9 [facility] Comment on above: Performed By: #### C SEBASTIÁN, BMP #### [facility] ([id number]) [address], [address] [place] [address] Monocytes/100 WBC (Bld) 8.5 % Normal [facility] Comment on above: Performed By: #### Augustin LOWERY, BMP #### [facility] ([id number]) [address] [place] [address] Neutrophils/100 WBC (Bld) 81.9 % Normal [facility] Comment on above: Performed By: #### C SEBASTIÁN, BMP #### [facility] ([id number]) [address], [address] [place] [address] Platelet mean volume (Bld) [Entitic vol] 7.9 fL Normal 7-12 [facility] Comment on above: Performed By: #### C SEBASTIÁN, BMP #### [facility] ([id number]) [address] [place] [address] Platelets (Bld) [#/Vol] 141 10*3/uL Low 150-450 [facility] Comment on above: Performed By: #### C SEBASTIÁN, BMP #### [facility] ([id number]) [address] [place] [address] RBC COUNT 3.62 X10E12/L Low 4.10-5.70 [facility] Comment on above: Performed By: #### C SEBASTIÁN, BMP #### [facility] ([id number]) [address] [place] [address] WBC (Bld) [#/Vol] 9.2 10*3/uL Normal 4.0-11.0 [facility] Comment on above: Performed By: #### C SEBASTIÁN, BMP #### [facility] ([id number]) [address] [place] [address] BASIC METABOLIC PANLon 11-14 Anion gap [Moles/Vol] 5 mmol/L Normal 5-15 [facility] Comment on above: Performed By: #### C SEBASTIÁN, BMP #### [facility] ([id number]) [address], [address] [place] [address] Calcium [Mass/Vol] 8.4 mg/dL Low 8.5-10.5 [facility] Comment on above: Performed By: #### C BCA, BMP #### [facility] ([id number]) [address], [address] [place] [address] Chloride [Moles/Vol] 107 mmol/L Normal 98-109 [facility] Comment on above: Performed By: #### C BCA, BMP #### [facility] ([id number]) [address], [address] [place] [address] CO2 [Moles/Vol] 26 mmol/L Normal 22-32 [facility] Comment on above: Performed By: #### C BCA, BMP #### [facility] ([id number]) [address] [place] [address] Creatinine [Mass/Vol] 1.10 mg/dL Normal 0.60-1.30 [facility] Comment on above: Result Comment: METH OD TRACEABLE TO IDMS STANDARD Performed By: #### C BCA, BMP #### [facility] ([id number]) [address], [address] [place] [address] GFR/1.73 sq M.predicted among non-blacks MDRD (S/P/Bld) [Vol rate/Area] 75 mL/min/{1.73_m2} Normal >59 [facility] Comment on above: Result Comment: Reported eGFR is based on the CKD-EPI 2020 equation that does not use a race coefficient. Performed By: #### C BCA, BMP #### [facility] ([id number]) [address] [place] [address] Glucose [Mass/Vol] 102 mg/dL High 65-99 [facility] Comment on above: Performed By: #### C BCA, BMP #### [facility] ([id number]) [address] [place] [address] Potassium [Moles/Vol] 4.6 mmol/L Normal 3.5-5.0 [facility] Comment on above: Performed By: #### C BCA, BMP #### [facility] ([id number]) [address] [place] [address] Sodium [Moles/Vol] 138 mmol/L Normal 134-146 [facility] Comment on above: Performed By: #### C BCA, BMP #### [facility] ([id number]) [address] [place] [address] Urea nitrogen [Mass/Vol] 17 mg/dL Normal 5-27 [facility] Comment on above: Performed By: #### C SEBASTIÁN, BMP #### [facility] ([id number]) [address], [address] [place] [address] CBC AND AUTO DIFFon 11-15-19 ABSOLUTE BASOPHIL 0.0 X10E9/L Normal 0.0-0.2 [facility] Comment on above: Performed By: #### C BCA, BMP #### [facility] ([id number]) [address], [address] [place] [address] ABSOLUTE NEUTROPHIL 3.7 X10E9/L Normal 1.5-6.6 [facility] Comment on above: Performed By: #### C BCA, BMP #### [facility] ([id number]) [address] [place] [address] Basophils/100 WBC (Bld) 0.4 % Normal [facility] Comment on above: Performed By: #### C BCA, BMP #### [facility] ([id number]) [address] [address] [place] [address] Eosinophils (Bld) [#/Vol] 0.1 10*3/uL Normal 0.0-0.4 [facility] Comment on above: Performed By: #### C BCA, BMP #### [facility] ([id number]) [address] [place] [address] Eosinophils/100 WBC (Bld) 2.8 % Normal [facility] Comment on above: Performed By: #### C SEBASTIÁN, BMP #### [facility] ([id number]) [address] [place] [address] Erythrocyte distribution width (RBC) [Ratio] 14.4 % Normal 11.5-15.0 [facility] Comment on above: Performed By: #### C SEBASTIÁN, BMP #### [facility] ([id number]) [address] [place] [address] Hematocrit (Bld) [Volume fraction] 34.9 % Low 39-49 [facility] Comment on above: Performed By: #### C SEBASTIÁN, BMP #### [facility] ([id number]) [address] [place] [address] Hemoglobin (Bld) [Mass/Vol] 12.2 g/dL Low 13.0-17.0 [facility] Comment on above: Performed By: #### C SEBASTIÁN, BMP #### [facility] ([id number]) [address] [place] [address] Lymphocytes (Bld) [#/Vol] 0.7 10*3/uL Low 1.0-3.5 [facility] Comment on above: Performed By: #### C BCA, BMP #### [facility] ([id number]) [address] [place] [address] Lymphocytes/100 WBC (Bld) 15.1 % Normal [facility] Comment on above: Performed By: #### C BCA, BMP #### [facility] ([id number]) [address] [place] [address] MCH (RBC) [Entitic mass] 31.3 pg Normal 27-34 [facility] Comment on above: Performed By: #### C BCA, BMP #### [facility] ([id number]) [address] [place] [address] MCHC (RBC) [Mass/Vol] 35.0 g/dL Normal 32-36 [facility] Comment on above: Performed By: #### C SEBASTIÁN, BMP #### [facility] ([id number]) [address] [place] [address] MCV (RBC) [Entitic vol] 90 fL Normal 80-100 [facility] Comment on above: Performed By: #### C SEBASTIÁN, BMP #### [facility] ([id number]) [address] [place] [address] Monocytes (Bld) [#/Vol] 0.3 10*3/uL Normal 0-0.9 [facility] Comment on above: Performed By: #### C SEBASTIÁN, BMP #### [facility] ([id number]) [address] [place] [address] Monocytes/100 WBC (Bld) 6.0 % Normal [facility] Comment on above: Performed By: #### C SEBASTIÁN, BMP #### [facility] ([id number]) [address] [place] [address] Neutrophils/100 WBC (Bld) 75.7 % Normal [facility] Comment on above: Performed By: #### C SEBASTIÁN, BMP #### [facility] ([id number]) [address] [place] [address] Platelet mean volume (Bld) [Entitic vol] 7.5 fL Normal 7-12 [facility] Comment on above: Performed By: #### C SEBASTIÁN, BMP #### [facility] ([id number]) [address] [place] [address] Platelets (Bld) [#/Vol] 141 10*3/uL Low 150-450 [facility] Comment on above: Performed By: #### C BCA, BMP #### [facility] ([id number]) [address] [place] [address] RBC COUNT 3.90 X10E12/L Low 4.10-5.70 [facility] Comment on above: Performed By: #### C BCA, BMP #### [facility] ([id number]) [address] [place] [address] WBC (Bld) [#/Vol] 4.8 10*3/uL Normal 4.0-11.0 [facility] Comment on above: Performed By: #### C BCA, BMP #### [facility] ([id number]) [address] [place] [address] Magnesium Ionized ISE (Bld) [Moles/Vol]on 11-14-2024 Magnesium [Moles/Vol] 0.49 mmol/L Normal 0.45-0.[address] [facility] Comment on above: Result Comment: NEW REFERENCE RANGE Performed By: #### 7 3572-0 #### [facility] ([id number]) [address] [place] [address] RAPID CARDIACon 11-14-2024 ABEBA'S TEST Normal [facility] Comment on above: Performed By: #### A FAB5 #### [facility] ([id number]) [address] [place] [address] Base excess Calc (Bld) [Moles/Vol] 0.1 mmol/L Normal 0.0-2.0 [facility] Comment on above: Performed By: #### A FAB5 #### [facility] ([id number]) [address] [place] [address] Body temperature 98.6 [degF] Normal 37.0 [facility] Comment on above: Performed By: #### A FAB5 #### [facility] ([id number]) [address] [place] [address] Glucose [Mass/Vol] 122 mg/dL High 65-99 [facility] Comment on above: Performed By: #### A FAB5 #### [facility] ([id number]) [address] [place] [address] HCO3 (Bld) [Moles/Vol] 25.4 mmol/L Normal 22-26 [facility] Comment on above: Performed By: #### A FAB5 #### [facility] ([id number]) [address] [place] [address] Hematocrit (Bld) [Volume fraction] 40 % Normal 39-49 [facility] Comment on above: Performed By: #### A FAB5 #### [facility] ([id number]) [address] [place] [address] Hemoglobin (Bld) [Mass/Vol] 13.0 g/dL Normal 13.0-17.0 [facility] Comment on above: Performed By: #### A FAB5 #### [facility] ([id number]) [address] [place] [address] INSP. O2 CONC. 100 % Normal [facility] Comment on above: Performed By: #### A FAB5 #### [facility] ([id number]) [address] [place] [address] IONIZED CALCIUM 4.8 mg/dL Normal 4.5-5.3 [facility] Comment on above: Performed By: #### A FAB5 #### [facility] ([id number]) [address] [place] [address] Oxygen (Bld) [Partial pressure] 391 mm[Hg] High 80-100 [facility] Comment on above: Performed By: #### A FAB5 #### [facility] ([id number]) [address] [place] [address] Oxygen saturation in Blood 100.4 % Normal >90 [facility] Comment on above: Performed By: #### A FAB5 #### [facility] ([id number]) [address] [place] [address] PCO2 43.6 MMHG Normal 35-45 [facility] Comment on above: Performed By: #### A FAB5 #### [facility] ([id number]) [address] [place] [address] pH (Bld) 7.373 [pH] Normal 7.350-7.45 0 [facility] Comment on above: Performed By: #### A FAB5 #### [facility] ([id number]) [address] [place] [address] Potassium [Moles/Vol] 4.3 mmol/L Normal 3.5-5.0 [facility] Comment on above: Performed By: #### A FAB5 #### [facility] ([id number]) [address] [place] [address] SAMPLE SITE MARY Normal [facility] Comment on above: Performed By: #### A FAB5 #### [facility] ([id number]) [address] [place] [address] SAMPLE TYPE Arterial Normal [facility] Comment on above: Performed By: #### A FAB5 #### [facility] ([id number]) [address] [place] [address] ABO Rh Repeaton 10-31-2024 ABO B [facility] Rh Nom (Bld) Positive [facility] APTTon 10-31-2024 aPTT Coag (PPP) [Time] 31 s Pr [facility] BASIC METABOLIC PANLon 10-31 Anion gap [Moles/Vol] 7 mmol/L Normal 5-15 [facility] Comment on above: Performed By: #### C BCA, BMP, PINR, 75136-7 #### [facility] ([id number]) [address] [place] [address] Calcium [Mass/Vol] 9.7 mg/dL Normal 8.5-10.5 [facility] Comment on above: Performed By: #### C BCA, BMP, PINR, 50984-7 #### [facility] ([id number]) [address] [place] [address] Chloride [Moles/Vol] 103 mmol/L Normal 98-109 [facility] Comment on above: Performed By: #### C BCA, BMP, PINR, 81147-0 #### [facility] ([id number]) [address] [place] [address] CO2 [Moles/Vol] 30 mmol/L Normal 22-32 [facility] Comment on above: Performed By: #### C BCA, BMP, PINR, 06588-4 #### [facility] ([id number]) [address] [place] [address] Creatinine [Mass/Vol] 1.33 mg/dL High 0.60-1.30 [facility] Comment on above: Result Comment: METH OD TRACEABLE TO IDMS STANDARD Performed By: #### C BCA, BMP, PINR, 76968-7 #### [facility] ([id number]) [address], [address] [place] [address] GFR/1.73 sq M.predicted among non-blacks MDRD (S/P/Bld) [Vol rate/Area] 60 mL/min/{1.73_m2} Normal >59 [facility] Comment on above: Result Comment: Reported eGFR is based on the CKD-EPI 2020 equation that does not use a race coefficient. Performed By: #### C BCA, BMP, PINR, 86978-3 #### [facility] ([id number]) [address] [place] [address] Glucose [Mass/Vol] 102 mg/dL High 65-99 [facility] Comment on above: Performed By: #### C BCA, BMP, PINR, 26318-1 #### [facility] ([id number]) [address] [place] [address] Potassium [Moles/Vol] 4.3 mmol/L Normal 3.5-5.0 [facility] Comment on above: Performed By: #### C BCA, BMP, PINR, 77148-1 #### [facility] ([id number]) [address] [place] [address] Sodium [Moles/Vol] 140 mmol/L Normal 134-146 [facility] Comment on above: Performed By: #### C BCA, BMP, PINR, 84353-7 #### [facility] ([id number]) [address] [place] [address] Urea nitrogen [Mass/Vol] 22 mg/dL Normal 5-27 [facility] Comment on above: Performed By: #### C BCA, BMP, PINR, 11465-7 #### [facility] ([id number]) [address] [place] [address] Basic Metabolic Panelon 04-0 Anion gap [Moles/Vol] 7 mmol/L 5 - 15 mmol/L [facility] Calcium [Mass/Vol] 9.7 mg/dL 8.5 - 10. 5 mg/dL [facility] Chloride [Moles/Vol] 103 mmol/L 98 - 10 9 mmol/L [facility] CO2 [Moles/Vol] 30 mmol/L 22 - 32 mmol/L [facility] Creatinine [Mass/Vol] 1.33 mg/dL High 0.60 - 1.30 mg/dL [facility] Comment on above: METHOD TRACEABLE TO IDMS STANDARD eGFR (CKD-EPI)non-race dependent 60 - PINF [facility] Comment on above: Reported eGFR is based on the CKD-EPI 2020 equation that does not use a race coefficient. Glucose [Mass/Vol] 102 mg/dL High 65 - 99 mg/dL [facility] Interpretation and review of laboratory results Abnormal [facility] Potassium [Moles/Vol] 4.3 mmol/L 3.5 - 5.0 mmol/L [facility] Sodium [Moles/Vol] 140 mmol/L 134 - 146 mmol/L [facility] Urea nitrogen [Mass/Vol] 22 mg/dL 5 - 27 mg/dL [facility] CBC AND AUTO DIFFon 11-01-19 25 ABSOLUTE BASOPHIL 0.0 X10E9/L Normal 0.0-0.2 [facility] Comment on above: Performed By: #### C BCA, BMP, PINR, [id number] #### [facility] ([id number]) [address], [address] [place] [address] ABSOLUTE NEUTROPHIL 3.2 X10E9/L Normal 1.5-6.6 [facility] Comment on above: Performed By: #### C BCA, BMP, PINR, [id number] #### [facility] ([id number]) [address], [address] [place] [address] Basophils/100 WBC (Bld) 0.8 % Normal [facility] Comment on above: Performed By: #### C BCA, BMP, PINR, [id number] #### [facility] ([id number]) [address], [address] [place] [address] Eosinophils (Bld) [#/Vol] 0.2 10*3/uL Normal 0.0-0.4 [facility] Comment on above: Performed By: #### C BCA, BMP, PINR, [id number] #### [facility] ([id number]) [address], [address] [place] [address] Eosinophils/100 WBC (Bld) 3.4 % Normal [facility] Comment on above: Performed By: #### C BCA, BMP, PINR, [id number] #### [facility] ([id number]) [address], [address] [place] [address] Erythrocyte distribution width (RBC) [Ratio] 14.6 % Normal 11.5-15.0 [facility] Comment on above: Performed By: #### C BCA, BMP, PINR, 54531-0 #### [facility] ([id number]) [address], [address] [place] [address] Hematocrit (Bld) [Volume fraction] 43.7 % Normal 39-49 [facility] Comment on above: Performed By: #### C BCA, BMP, PINR, 49617-0 #### [facility] ([id number]) [address], [address] [place] [address] Hemoglobin (Bld) [Mass/Vol] 14.9 g/dL Normal 13.0-17.0 [facility] Comment on above: Performed By: #### C BCA, BMP, PINR, 90848-5 #### [facility] ([id number]) [address], [address] [place] [address] Lymphocytes (Bld) [#/Vol] 1.7 10*3/uL Normal 1.0-3.5 [facility] Comment on above: Performed By: #### C BCA, BMP, PINR, 55560-6 #### [facility] ([id number]) [address], [address] [place] [address] Lymphocytes/100 WBC (Bld) 29.4 % Normal [facility] Comment on above: Performed By: #### C BCA, BMP, PINR, 86008-5 #### [facility] ([id number]) [address], [address] [place] [address] MCH (RBC) [Entitic mass] 30.4 pg Normal 27-34 [facility] Comment on above: Performed By: #### C BCA, BMP, PINR, 03555-2 #### [facility] ([id number]) [address], [address] [place] [address] MCHC (RBC) [Mass/Vol] 34.1 g/dL Normal 32-36 [facility] Comment on above: Performed By: #### C BCA, BMP, PINR, 16160-0 #### [facility] ([id number]) [address], [address] [place] [address] MCV (RBC) [Entitic vol] 89 fL Normal 80-100 [facility] Comment on above: Performed By: #### C BCA, BMP, PINR, 64594-2 #### [facility] ([id number]) [address], [address] [place] [address] Monocytes (Bld) [#/Vol] 0.7 10*3/uL Normal 0-0.9 [facility] Comment on above: Performed By: #### C BCA, BMP, PINR, 02811-5 #### [facility] ([id number]) [address], [address] [place] [address] Monocytes/100 WBC (Bld) 12.0 % Normal [facility] Comment on above: Performed By: #### C BCA, BMP, PINR, 31081-0 #### [facility] ([id number]) [address], [address] [place] [address] Neutrophils/100 WBC (Bld) 54.4 % Normal [facility] Comment on above: Performed By: #### C BCA, BMP, PINR, 11227-9 #### [facility] ([id number]) [address], [address] [place] [address] Platelet mean volume (Bld) [Entitic vol] 8.0 fL Normal 7-12 [facility] Comment on above: Performed By: #### C BCA, BMP, PINR, 91112-5 #### [facility] ([id number]) [address], [address] [place] [address] Platelets (Bld) [#/Vol] 268 10*3/uL Normal 150-450 [facility] Comment on above: Performed By: #### C BCA, BMP, PINR, 09406-2 #### [facility] ([id number]) [address], [address] [place] [address] RBC COUNT 4.89 X10E12/L Normal 4.10-5.70 [facility] Comment on above: Performed By: #### C BCA, BMP, PINR, 36992-5 #### [facility] ([id number]) [address], [address] [place] [address] WBC (Bld) [#/Vol] 5.8 10*3/uL Normal 4.0-11.0 [facility] Comment on above: Performed By: #### C BCA, BMP, PINR, 58101-9 #### [facility] ([id number]) [address], [address] [place] [address] CBC auto differentialon 04-0 Basophils (Bld) [#/Vol] 0 10*3/uL [facility] Basophils/100 WBC (Bld) 0.8 % [facility] Eosinophils (Bld) [#/Vol] 0.2 10*3/uL [facility] Eosinophils/100 WBC (Bld) 3.4 % [facility] Erythrocyte distribution width (RBC) [Ratio] 14.6 % 11.5 - 15.0 % [facility] Hematocrit (Bld) [Volume fraction] 43.7 % 39 - 49 % [facility] Hemoglobin (Bld) [Mass/Vol] 14.9 g/dL 13.0 - 17.0 g/dL [facility] Lymphocytes (Bld) [#/Vol] 1.7 10*3/uL [facility] Lymphocytes/100 WBC (Bld) 29.4 % [facility] MCH (RBC) [Entitic mass] 30.4 pg 27 - 34 pg [facility] MCHC (RBC) [Mass/Vol] 34.1 g/dL 32 - 3 6 g/dL [facility] MCV (RBC) [Entitic vol] 89 fL 80 - 100 fL [facility] Monocytes (Bld) [#/Vol] 0.7 10*3/uL [facility] Monocytes/100 WBC (Bld) 12 % [facility] Neutrophils (Bld) [#/Vol] 3.2 10*3/uL [facility] Neutrophils/100 WBC (Bld) 54.4 % [facility] Platelet mean volume (Bld) [Entitic vol] 8 fL 7 - 12 fL [facility] Platelets (Bld) [#/Vol] 268 10*3/uL [facility] RBC (Bld) [#/Vol] 4.89 10*6/uL [facility] WBC corrected for nucl RBC Auto (Bld) [#/Vol] 5.8 [facility] No Panel Informationon 10-31 [facility] PROTIME AND INRon 10-31-2024 INR Coag (PPP) [Relative time] 0.9 {INR} Normal 0.9-1.2 [facility] Comment on above: Performed By: #### C BCA, BMP, PINR, 84613-8 #### [facility] ([id number]) [address], [address] [place] [address] PT Coag (PPP) [Time] 9.9 s Normal 9.8-13.2 [facility] Comment on above: Performed By: #### C BCA, BMP, PINR, 94978-3 #### [facility] ([id number]) [address], [address] [place] [address] Protime-INRon 10-31-2024 INR Coag (PPP) [Relative time] 0.9 {INR} [facility] PT Coag (PPP) [Time] 9.9 [facility] Type and screen(includes ind irect rosetta)on 10-31-2024 ABO B [facility] Rh Nom (Bld) Positive [facility] URINALYSISon 10-31-2024 Bilirubin Ql (U) Negative Normal NEG [facility] Comment on above: Performed By: #### U A #### [facility] ([id number]) [address], [address] [place] [address] BLOOD/HGB Negative Normal NEG [facility] Comment on above: Performed By: #### U A #### [facility] ([id number]) [address], [address] [place] [address] Color (U) YELLOW Normal YELLOW [facility] Comment on above: Performed By: #### U A #### [facility] ([id number]) [address], [address] [place] [address] Glucose Ql (U) Negative Normal NEG [facility] Comment on above: Performed By: #### U A #### [facility] ([id number]) [address] [place] [address] Ketones Ql (U) Negative Normal NEG [facility] Comment on above: Performed By: #### U A #### [facility] ([id number]) [address], [address] [place] [address] Leukocyte esterase Test strip Ql (U) Negative Normal NEG [facility] Comment on above: Performed By: #### U A #### [facility] ([id number]) [address], [address] [place] [address] MUCOUS PRESENT Abnormal NONE [facility] Comment on above: Performed By: #### U A #### [facility] ([id number]) [address], [address] [place] [address] Nitrite Ql (U) Negative Normal NEG [facility] Comment on above: Performed By: #### U A #### [facility] ([id number]) [address] [place] [address] pH (U) 6.0 [pH] Normal 5.0-8.5 [facility] Comment on above: Performed By: #### U A #### [facility] ([id number]) [address] [address] Protein Ql (U) 50 mg/dL Abnormal NEG [facility] Comment on above: Performed By: #### U A #### [facility] ([id number]) [address] [address] R.B.CELLS 0 /hpf Normal 0-5 [facility] Comment on above: Performed By: #### U A #### [facility] ([id number]) [address] [address] Specific gravity (U) [Rel density] 1.035 Normal 1.003-1.03 5 [facility] Comment on above: Performed By: #### U A #### [facility] ([id number]) [address] [address] SQUAMOUS EPITHELIUM 14 /hpf High 0-5 [facility] Comment on above: Performed By: #### U A #### [facility] ([id number]) [address] [address] TURBIDITY CLOUDY Abnormal CLEAR [facility] Comment on above: Performed By: #### U A #### [facility] ([id number]) [address] [address] Urinalysis dipstick W Reflex Microscopic panel (U) URINE RECEIVED WITHOUT PRESERVATIVE-DELAYS IN TRANSPORT MAY AFFECT RESULTS.INTERPRET WITH CAUTION AND CLINICAL CORRELATION IS RECOMMENDED. Normal [facility] Comment on above: Performed By: #### U A #### [facility] ([id number]) [address], [address] [place] [address] Urobilinogen (U) [Mass/Vol] mg/dL Normal <1.1 [facility] Comment on above: Performed By: #### U A #### [facility] ([id number]) [address], [address] [place] [address] W.B.CELLS 3 /hpf Normal 0-5 [facility] Comment on above: Performed By: #### U A #### [facility] ([id number]) [address], [address] [place] [address] Urinalysison 10-31-2024 Bilirubin Ql (U) Negative Negative^N egative [facility] Color (U) YELLOW YELLOW^YEL LOW [facility] Epithelial cells Auto (Urine sed) [#/Area] 14 High [facility] Glucose (U) [Mass/Vol] Negative Negat carol^N egative mg/dL [facility] Hemoglobin Auto test strip Ql (U) Negative Negative^N egative [facility] Interpretation and review of laboratory results Abnormal [facility] Ketones (U) [Mass/Vol] Negative Negat carol^N egative mg/dL [facility] Leukocyte esterase Auto test strip Ql (U) Negative Negative^N egative [facility] Mucus Ql (Urine sed) PRESENT Abnormal NONE^NONE [facility] Nitrite Auto test strip Ql (U) Negative Negative^N egative [facility] pH (U) 6 [pH] 5.0 - 8.5 [facility] Protein (U) [Mass/Vol] 50 mg/dL Abnormal Negat carol^N egative [facility] RBC Auto (Urine sed) [#/Area] 0 [facility] Specific gravity Refractometry automated (U) [Rel density] 1.035 1.003 - 1.035 [facility] Turbidity Ql (U) CLOUDY Abnormal CLEAR^BASHIR R [facility] Urinalysis microscopic panel Auto (Urine sed) [#/Area] URINE RECEIVED WITHOUT PRESERVATIVE-DELAYS IN TRANSPORT MAY AFFECT RESULTS.INTERPRET WITH CAUTION AND CLINICAL CORRELATION IS RECOMMENDED. [facility] Urobilinogen Qn (U) NINF [facility] WBC Auto (Urine sed) [#/Area] 3 [facility] aPTT Coag (PPP) [Time]on aPTT Coag (Bld) [Time] 31 s Normal 26-37 [facility] Comment on above: Performed By: #### C BCA, BMP, PINR, 79291-9 #### [facility] ([id number]) [address], [address] [place] [address] ECG 12 Leadon 09-20-2024 Sinus tachycardia, incomplete right bundle branch block, abnormal ECG [facility] Work Phone: [place] [address] CT Scan Report Signed Patient: HECTOR GASPAR MR#: [id number] : 1960 Acct:[id number] Age/Sex: 64 / M ADM Date: 09/11/24 Loc: CT Attending Dr: Rom Pierre M.D. Ordering Physician: Rom Pierre M.D. Date of Service: 09/11/24 Procedure(s): CT angio abdomen pelvis Accession Number(s): [id number] cc: Seymour Harper M.D. [place] [id number] Patient Name: HECTOR GASPAR MRN: [id number] date: 1960 Sex: M Assigned Patient Location: CT Current Patient Location: CT Accession/Order Number: [id number] Exam Date: 09/11/2024 13:03 Report Date: 09/11/2024 [...] Leonardo M.D. Signed By: 09/11/24 1600 DD/ [id number] TD/TT: Senior Tax Accountant: [facility] Radiology, Radiologi MD keaton - 09/12/2024 [place] [address] CT Scan Report Signed Patient: HECTOR GASPAR MR#: [id number] : 1960 Acct:[id number] Age/Sex: 64 / M ADM Date: 09/11/24 Loc: CT Attending Dr: Rom Pirere M.D. Ordering Physician: Rom Pierre M.D. Date of Service: 09/11/24 Procedure(s): CT angio abdomen pelvis Accession Number(s): [id number] cc: Seymour Harper M.D. The [place] [id number] Patient Name: HECTOR GASPAR MRN: [id number] date: 1960 Sex: M Assigned Patient Location: CT Current Patient Location: CT Accession/Order Number: [id number] Exam Date: 09/11/2024 13:03 Report Date: 09/11/2024 [...] Leonardo M.D. Signed By: 09/11/24 1600 DD/ [id number] TD/TT: Senior Tax Accountant: [facility] Radiology Study observation (narrative) [facility] CT ANGIO ABDOMEN PELVISOrder ed By: Radiologist Radiology on 09-11-2024 [facility] Work Phone: Basophils Auto (Bld) [#/Vol] on 05-07-2024 Basophils (Bld) [#/Vol] 0.0 10 3/uL 0.0-0.1 [facility] Basophils/100 WBC Auto (Bld) on 05-07-2024 Basophils/100 WBC (Bld) 0.6 % 0.2-2.0 [facility] Eosinophils/100 WBC Auto (Bl d)on 05-07-2024 Eosinophils/100 WBC (Bld) 3.8 % 0.9-7.0 [facility] Erythrocyte distribution wid th Auto (RBC) [Ratio]on 05-07-2024 Erythrocyte distribution width (RBC) [Ratio] 12.4 % 11.0-15.0 [facility] Estimated glomerular filtrat ion rate (GFR) non- Americanon 05-07-2024 GFR/1.73 sq M.predicted among non-blacks MDRD (S/P/Bld) [Vol rate/Area] 52 mL/min/{1.73_m2} Low >=60 mL/min/1.7 3m 2 [facility] Globulin Calc (S) [Mass/Vol] on 05-07-2024 Globulin (S) [Mass/Vol] 3.7 g/dL [facility] Hematocrit Auto (Bld) [Volum e fraction]on 05-07-2024 Hematocrit (Bld) [Volume fraction] 39.8 % Low 42.0-54.0 [facility] Hemoglobin [Mass/volume] in Bloodon 05-07-2024 Hemoglobin (Bld) [Mass/Vol] 13.8 g/dL Low 14.0-18.0 [facility] INR in Platelet poor plasma by Coagulation assayon 05-07-2024 INR Coag (PPP) [Relative time] 0.96 {INR} [facility] Comment on above: DESIRED INR:2.0-3.0 CONDITIONS NOT LISTED BELOW2.5-3.5 FOR PROSTHETIC HEART VALVE REPLACEMENT2.5-3.5 RECURRENT THROMBOSIS Laboratory - Chemistry and C hemistry - challengeon 05-07-2024 Albumin [Mass/Vol] 3.7 g/dL 3.4-5.0 [facility] ALP [Catalytic activity/Vol] 67 U/L 46-116 [facility] ALT [Catalytic activity/Vol] 26 U/L 16-63 [facility] AST [Catalytic activity/Vol] 19 U/L 15-37 [facility] Bilirubin [Mass/Vol] 0.4 mg/dL 0.2-1.0 [facility] Calcium [Mass/Vol] 9.3 mg/dL 8.5-10.1 [facility] Chloride [Moles/Vol] 104 mmol/L 98-107 [facility] CO2 [Moles/Vol] 27.0 mmol/L 21.0-32.0 [facility] Creatinine [Mass/Vol] 1.38 mg/dL High 0.70-1.30 [facility] GFR/1.73 sq M.predicted MDRD (S/P/Bld) [Vol rate/Area] mL/min/{1.73_m2} >=60 mL/min/1.7 3m 2 [facility] Glucose [Mass/Vol] 111 mg/dL High 74-106 [facility] Natriuretic peptide B (Bld) [Mass/Vol] 87.0 pg/mL <=900.0 [facility] Potassium [Moles/Vol] 4.1 mmol/L 3.5-5.1 [facility] Protein [Mass/Vol] 7.4 g/dL 6.4-8.2 [facility] Sodium [Moles/Vol] 141 mmol/L 136-145 [facility] Urea nitrogen [Mass/Vol] 18.0 mg/dL 7.0-18.0 [facility] Urea nitrogen/Creatinine [Mass ratio] 13.0 mg/mg [facility] Laboratory - Hematology and Cell countson 05-07-2024 Immature granulocytes/100 WBC (Bld) 0.2 % 0.0-0.5 [facility] Leukocytes [#/volume] correc kal for nucleated erythrocytes in Blood by Automated counon 05-07-2024 WBC corrected for nucl RBC Auto (Bld) [#/Vol] 4.7 10 3/uL 4.0-11.0 [facility] Lymphocytes Auto (Bld) [#/Vo l]on 05-07-2024 Lymphocytes (Bld) [#/Vol] 1.6 10 3/uL 1.2-3.8 [facility] Lymphocytes/100 WBC Auto (Bl d)on 05-07-2024 Lymphocytes/100 WBC (Bld) 34.4 % 20.5-60.0 [facility] MCH Auto (RBC) [Entitic mass ]on 05-07-2024 MCH (RBC) [Entitic mass] 30.9 pg 25.9-34.0 [facility] MCHC Auto (RBC) [Mass/Vol]on 05-07-2024 MCHC (RBC) [Mass/Vol] 34.7 g/dL 29.9-35.2 [facility] MCV Auto (RBC) [Entitic vol] on 05-07-2024 MCV (RBC) [Entitic vol] 89.2 fL 80.0-94.0 [facility] Monocytes Auto (Bld) [#/Vol] on 05-07-2024 Monocytes (Bld) [#/Vol] 0.6 10 3/uL 0.3-0.8 [facility] Monocytes/100 WBC Auto (Bld) on 05-07-2024 Monocytes/100 WBC (Bld) 12.4 % High 1.7-12.0 [facility] Neutrophils Auto (Bld) [#/Vo l]on 05-07-2024 Neutrophils (Bld) [#/Vol] 2.3 10 3/uL 1.4-6.5 [facility] Neutrophils/100 WBC Auto (Bl d)on 05-07-2024 Neutrophils/100 WBC (Bld) 48.6 % 43.0-75.0 [facility] No Panel Informationon 05-07 Eosinophils # (Auto) 0.2 10 3/uL 0.0-0.7 [facility] Immature Granulocyte # (Auto) 0.01 10 3/uL 0.00-0.03 [facility] Troponin I High Sensitivity 15.2 pg/mL 4.0-76.1 [facility] Comment on above: CUT-OFF POINTS HAVE BEEN [...] vol] 9.4 fL Low 9.5-13.5 [facility] Platelets Auto (Bld) [#/Vol] on 05-07-2024 Platelets (Bld) [#/Vol] 212 10 3/uL 150-450 [facility] Prothrombin time (PT)on 04-25 PT Coag (PPP) [Time] 10.2 s 9.0-11.6 [facility] RBC Auto (Bld) [#/Vol]on RBC (Bld) [#/Vol] 4.46 10 6/uL Low 4.70-6.10 [facility] Serum or plasma albumin/glob ulin mass ratioon 05-07-2024 Albumin/Globulin [Mass ratio] 1.0 {ratio} [facility] Serum or plasma anion gap de terminationon 05-07-2024 Anion gap [Moles/Vol] 14.1 mmol/L Fi [facility] CT CTA ABD AND PELVISon 02-23 CT [...] Marie MD on 03/07/2024 12:12 PM Normal [facility] Basophils Auto (Bld) [#/Vol] on 10-09-2023 Basophils (Bld) [#/Vol] 0.0 10 3/uL 0.0-0.1 [facility] Basophils/100 WBC Auto (Bld) on 10-09-2023 Basophils/100 WBC (Bld) 0.6 % 0.2-2.0 [facility] Eosinophils/100 WBC Auto (Bl d)on 10-09-2023 Eosinophils/100 WBC (Bld) 3.9 % 0.9-7.0 [facility] Erythrocyte distribution wid th Auto (RBC) [Ratio]on 10-09-2023 Erythrocyte distribution width (RBC) [Ratio] 13.2 % 11.0-15.0 [facility] Estimated glomerular filtrat ion rate (GFR) non- Americanon 10-09-2023 GFR/1.73 sq M.predicted among non-blacks MDRD (S/P/Bld) [Vol rate/Area] 45 mL/min/{1.73_m2} >=60 [facility] Globulin Calc (S) [Mass/Vol] on 10-09-2023 Globulin (S) [Mass/Vol] 3.4 g/dL [facility] Hematocrit Auto (Bld) [Volum e fraction]on 10-09-2023 Hematocrit (Bld) [Volume fraction] 36.4 % 42.0-54.0 [facility] Hemoglobin [Mass/volume] in Bloodon 10-09-2023 Hemoglobin (Bld) [Mass/Vol] 12.1 g/dL 14.0-18.0 [facility] Laboratory - Chemistry and C hemistry - challengeon 10-09-2023 Albumin [Mass/Vol] 3.5 g/dL 3.4-5.0 [facility] ALP [Catalytic activity/Vol] 64 U/L 46-116 [facility] ALT [Catalytic activity/Vol] 35 U/L 16-63 [facility] AST [Catalytic activity/Vol] 24 U/L 15-37 [facility] Bilirubin [Mass/Vol] 0.4 mg/dL 0.2-1.0 [facility] Calcium [Mass/Vol] 9.0 mg/dL 8.5-10.1 [facility] Chloride [Moles/Vol] 102 mmol/L 98-107 [facility] CO2 [Moles/Vol] 27.8 mmol/L 21.0-32.0 [facility] Creatinine [Mass/Vol] 1.58 mg/dL 0.70-1.30 [facility] GFR/1.73 sq M.predicted MDRD (S/P/Bld) [Vol rate/Area] 54 mL/min/{1.73_m2} >=60 [facility] Glucose [Mass/Vol] 96 mg/dL 74-106 [facility] Potassium [Moles/Vol] 4.3 mmol/L 3.5-5.1 [facility] Protein [Mass/Vol] 6.9 g/dL 6.4-8.2 [facility] Sodium [Moles/Vol] 136 mmol/L 136-145 [facility] Urea nitrogen [Mass/Vol] 26.0 mg/dL 7.0-18.0 [facility] Urea nitrogen/Creatinine [Mass ratio] 16.5 mg/mg [facility] Laboratory - Hematology and Cell countson 10-09-2023 Immature granulocytes/100 WBC (Bld) 0.6 % 0.0-0.5 [facility] Leukocytes [#/volume] correc kal for nucleated erythrocytes in Blood by Automated counon 10-09-2023 WBC corrected for nucl RBC Auto (Bld) [#/Vol] 5.2 10 3/uL 4.0-11.0 [facility] Lymphocytes Auto (Bld) [#/Vo l]on 10-09-2023 Lymphocytes (Bld) [#/Vol] 1.5 10 3/uL 1.2-3.8 [facility] Lymphocytes/100 WBC Auto (Bl d)on 10-09-2023 Lymphocytes/100 WBC (Bld) 28.9 % 20.5-60.0 [facility] MCH Auto (RBC) [Entitic mass ]on 10-09-2023 MCH (RBC) [Entitic mass] 30.9 pg 25.9-34.0 [facility] MCHC Auto (RBC) [Mass/Vol]on 10-09-2023 MCHC (RBC) [Mass/Vol] 33.2 g/dL 29.9-35.2 [facility] MCV Auto (RBC) [Entitic vol] on 10-09-2023 MCV (RBC) [Entitic vol] 93.1 fL 80.0-94.0 [facility] Monocytes Auto (Bld) [#/Vol] on 10-09-2023 Monocytes (Bld) [#/Vol] 0.8 10 3/uL 0.3-0.8 [facility] Monocytes/100 WBC Auto (Bld) on 10-09-2023 Monocytes/100 WBC (Bld) 16.1 % 1.7-12.0 [facility] Neutrophils Auto (Bld) [#/Vo l]on 10-09-2023 Neutrophils (Bld) [#/Vol] 2.6 10 3/uL 1.4-6.5 [facility] Neutrophils/100 WBC Auto (Bl d)on 10-09-2023 Neutrophils/100 WBC (Bld) 49.9 % 43.0-75.0 [facility] No Panel Informationon 10-08 Eosinophils # (Auto) 0.2 10 3/uL 0.0-0.7 [facility] Immature Granulocyte # (Auto) 0.03 10 3/uL 0.00-0.03 [facility] Platelet mean volume Auto (B ld) [Entitic vol]on 10-09-2023 Platelet mean volume (Bld) [Entitic vol] 9.4 fL 9.5-13.5 [facility] Platelets Auto (Bld) [#/Vol] on 10-09-2023 Platelets (Bld) [#/Vol] 228 10 3/uL 150-450 [facility] RBC Auto (Bld) [#/Vol]on RBC (Bld) [#/Vol] 3.91 10 6/uL 4.70-6.10 [facility] Serum or plasma albumin/glob ulin mass ratioon 10-09-2023 Albumin/Globulin [Mass ratio] 1.0 {ratio} [facility] Serum or plasma anion gap de terminationon 10-09-2023 Anion gap [Moles/Vol] 10.5 mmol/L [facility] Office Visit (Cardiology)on 12-24-2022 Follow-up visit Diagnoses/Problems Assessed Coronary artery disease involving tribe coronary artery of tribe heart without angina pectoris (414.01) (I25.10) Preoperative [...] we can help. You may also call [phone] for free resources and assistance.; Status:Complete - [...] December. 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 Normal [facility] Tobacco Screening.on 023 Fall risk assessment c) Not medically indicated -[facility] [facility] [address] DO Work Phone: Tobacco use status [facility] a) Yes [facility] [facility] [address] DO Work Phone: Tobacco Screening. Yes [facility] [facility] [address] DO Work Phone: Cardiovasc Arrhythmia Result son 11-02-2022 Cardiovasc Arrhythmia Results Reason For Visit Reason for Visit: Holter Monitor: HECTOR is here for the application of a 48 hour Holter monitor. Ordering Physician: JANINE CUNHA Diagnosis: CAD SINUS PAUSE [facility] equipment agreement signed. HECTOR understands monitor is to be returned on: 11-03-22 Monitor number [id number] applied. Holter monitor returned and downloaded. Procedure [...] symptomatic Diagnosis/Problems Assessed Coronary artery disease involving tribe coronary artery of tribe heart without angina pectoris (414.01) (I25.10) Sinus pause (426.6) (I45.5) Future Appointments Date/TimeProviderSpecialt ySite 01/19/2023 02:30 Alok Kirkland [id number] [facility] 2 [address] 250 DO Signatures Electronically signed by : Mallory Fan MA; Nov 02 2022 2:10PM EST (Author) Electronically signed by : Mohsen Gonsalves MD; Nov 08 2022 5:34PM EST (Author) Normal [facility] Calcium [Mass/volume] in Ser um or PlasmaOrdered By: Janine Cunha on 10-28-2022 Calcium [Mass/Vol] 9.5 mg/dL 8.6-10.3 [facility] Carbon dioxide, total [Moles /volume] in Serum or PlasmaOrdered By: Janine Cunha on 10-28-2022 CO2 [Moles/Vol] 25.8 mmol/L 21.0-31.0 [facility] Chloride [Moles/volume] in S lisa or PlasmaOrdered By: Janine Cunha on 10-28-2022 Chloride [Moles/Vol] 107 mmol/L 98-107 [facility] Creatinine [Mass/volume] in Serum or PlasmaOrdered By: Janine Cunha on 10-28-2022 Creatinine [Mass/Vol] 1.16 mg/dL 0.70-1.30 [facility] Glucose [Mass/volume] in Ser um or PlasmaOrdered By: Janine Cunha on 10-28-2022 Glucose [Mass/Vol] 100 mg/dL 70-100 [facility] Comment on above: ADA recommended refe rence rangeRandom Glucose Reference Range is dependent on time and content of last meal. Glucose of more than 200 mg/dL in a nonstressed, ambulatory subject supports the diagnosis of Diabetes Mellitus. No Panel InformationOrdered By: Janine Cunha on 10-28-2022 Estimated GFR (CKD-EPI) > 60.0 mL/Min [facility] Pharmacy Creatinine Clearance (Chem N/A [facility] No Panel Informationon 10-28 > 60.0 Normal [facility] 600 DO Work Phone: [phone] 11.6\S\11.6 Normal 6.0-15.0 [facility] 600 DO Work Phone: [phone] 9.5\S\9.5 Normal 8.6-10.3 [facility] 600 DO Work Phone: Comment on above: PERFORMED BY:[facility] [place] [id number] MEDICAL DIRECTORJANETTE DE LA FUENTE M.D. 25.8\S\25.8 Normal 21.0-31.0 [facility] 600 DO Work Phone: [phone] 107\S\107 Normal 98-107 [facility] [place] 600 DO Work Phone: [phone] 4.4\S\4.4 Normal 3.5-5.1 [facility] [place] 600 DO Work Phone: [phone] 140\S\140 Normal 136-145 [facility] [place] 600 DO Work Phone: [phone] 1.16\S\1.16 Normal 0.70-1.30 [facility] [place] 600 DO Work Phone: [phone] 27\S\27 above high threshold 7-25 [facility] [place] 600 DO Work Phone: [phone] 100\S\100 Normal 70-100 [facility] [place] 600 DO Work Phone: Comment on above: Random Glucose Refer ence Range is dependent on time and content of last meal. Glucose of more than 200 mg/dL in a nonstressed, ambulatory subject supports the diagnosis of Diabetes Mellitus. ADA recommended reference range Potassium [Moles/volume] in Serum or PlasmaOrdered By: Janine Cunha on 10-28-2022 Potassium [Moles/Vol] 4.4 mmol/L 3.5-5.1 [facility] Serum or plasma anion gap de terminationOrdered By: Janine Cunha on 10-28-2022 Anion gap [Moles/Vol] 11.6 mmol/L 6.0-15.0 [facility] Sodium [Moles/volume] in Ser um or PlasmaOrdered By: Janine Cunha on 10-28-2022 Sodium [Moles/Vol] 140 mmol/L 136-145 [facility] Urea nitrogen [Mass/volume] in Serum or PlasmaOrdered By: Janine Cunha on 10-28-2022 Urea nitrogen [Mass/Vol] 27 mg/dL 7-25 [facility] Tobacco Screening.on 023 Adult depression screening assessment No [facility] [facility] 250 DO Work Phone: Fall risk assessment a) No falls within the last year [facility] [facility] 250 DO Work Phone: Tobacco use status [facility] a) Yes [facility] [facility] 250 DO Work Phone: Tobacco Screening. Yes [facility] [facility] 250 DO Work Phone: Calcium [Mass/volume] in Ser um or PlasmaOrdered By: Rubén Tatum on 10-12-2022 Calcium [Mass/Vol] 9.0 mg/dL 8.6-10.3 [facility] Carbon dioxide, total [Moles /volume] in Serum or PlasmaOrdered By: Rubén Tatum on 10-12-2022 CO2 [Moles/Vol] 25.2 mmol/L 21.0-31.0 [facility] Chloride [Moles/volume] in S lisa or PlasmaOrdered By: Rubén Tatum on 10-12-2022 Chloride [Moles/Vol] 107 mmol/L 98-107 [facility] Creatinine [Mass/volume] in Serum or PlasmaOrdered By: Rubén Tatum on 10-12-2022 Creatinine [Mass/Vol] 1.09 mg/dL 0.70-1.30 [facility] Glucose [Mass/volume] in Ser um or PlasmaOrdered By: Rubén Tatum on 10-12-2022 Glucose [Mass/Vol] 100 mg/dL 74-109 [facility] Comment on above: ADA recommended refe rence rangeRandom Glucose Reference Range is dependent on time and content of last meal. Glucose of more than 200 mg/dL in a nonstressed, ambulatory subject supports the diagnosis of Diabetes Mellitus. Laboratory - Chemistry and C hemistry - challengeOrdered By: Rubén Tatum on 10-12-2022 GFR/1.73 sq M.predicted MDRD (S/P/Bld) [Vol rate/Area] mL/min/{1.73_m2} [facility] Magnesium [Mass/volume] in S lisa or PlasmaOrdered By: Rubén Tatum on 10-12-2022 Magnesium [Mass/Vol] 2.2 mg/dL 1.9-2.7 [facility] Natriuretic peptide B [Mass/ Vol]Ordered By: Rubén Tatum on 10-12-2022 Natriuretic peptide B (Bld) [Mass/Vol] 91.0 pg/mL 5-100 [facility] No Panel InformationOrdered By: Rubén Tatum on 10-12-2022 Pharmacy Creatinine Clearance (Chem 79.69 [facility] Potassium [Moles/volume] in Serum or PlasmaOrdered By: Rubén Tatum on 10-12-2022 Potassium [Moles/Vol] 4.2 mmol/L 3.5-5.1 [facility] Serum or plasma anion gap de terminationOrdered By: Rubén Tatum on 10-12-2022 Anion gap [Moles/Vol] 12.0 mmol/L 6.0-15.0 [facility] Sodium [Moles/volume] in Ser um or PlasmaOrdered By: Rubén Tatum on 10-12-2022 Sodium [Moles/Vol] 140 mmol/L 136-145 [facility] Urea nitrogen [Mass/volume] in Serum or PlasmaOrdered By: Rubén Tatum on 10-12-2022 Urea nitrogen [Mass/Vol] 23 mg/dL 7 [facility] Alanine aminotransferase [En zymatic activity/volume] in Serum or PlasmaOrdered By: Rubén Tatum on 10-11-2022 ALT [Catalytic activity/Vol] 18 U/L 7 [facility] Albumin [Mass/volume] in Ser um or Plasma by Bromocresol green (BCG) dye binding methoOrdered By: Rubén Tatum on 10-11-2022 Albumin BCG dye [Mass/Vol] 3.9 g/dL 3.5-5.7 [facility] Alkaline phosphatase [Enzyma tic activity/volume] in Serum or PlasmaOrdered By: Rubén Tatum on 10-11-2022 ALP [Catalytic activity/Vol] 46 U/L 34-104 [facility] Aspartate aminotransferase [ Enzymatic activity/volume] in Serum or PlasmaOrdered By: Rubén Tatum on 10-11-2022 AST [Catalytic activity/Vol] 30 U/L 13-39 [facility] Basophils Auto (Bld) [#/Vol] Ordered By: Galo Dent on 10-11-2022 Basophils (Bld) [#/Vol] 0.0 10*3/uL 0.0-0.2 [facility] Basophils/100 WBC Auto (Bld) Ordered By: Galo Dent on 10-11-2022 Basophils/100 WBC (Bld) 0.5 % . [facility] Bilirubin.total [Mass/volume ] in Serum or PlasmaOrdered By: Rubén Tatum on 10-11-2022 Bilirubin [Mass/Vol] 0.4 mg/dL 0.3-1.0 [facility] Cholesterol [Mass/volume] in Serum or PlasmaOrdered By: Rubén Tatum on 10-11-2022 Cholesterol [Mass/Vol] 221 mg/dL 140-200 [facility] Comment on above: Chol less than 200 m g/dl low riskChol 201-239 mg/dl borderline riskChol 240 mg/dl and greater high risk Cholesterol in LDL Calc [Mas s/Vol]Ordered By: Rubén Tatum on 10-11-2022 Cholesterol in LDL [Mass/Vol] 149 mg/dL 0-100 [facility] Comment on above: LDL ATP III CLASSIFI CATIONLDL less than 100 mg/dL OptimalLDL 100-129 mg/dL Near or above optimalLDL 130-159 mg/dL Borderline highLDL 160-189 mg/dL HighLDL greater than 189 mg/dL Very high Cholesterol in VLDL Calc [Ma ss/Vol]Ordered By: Rubén Tatum on 10-11-2022 Cholesterol in VLDL [Mass/Vol] 30 mg/dL [facility] Eosinophils Auto (Bld) [#/Vo l]Ordered By: Galo Dent on 10-11-2022 Eosinophils (Bld) [#/Vol] 0.2 10*3/uL 0.0-0.45 [facility] Eosinophils/100 WBC Auto (Bl d)Ordered By: Galo Dent on 10-11-2022 Eosinophils/100 WBC (Bld) 3.7 % . [facility] Erythrocyte distribution wid th Auto (RBC) [Ratio]Ordered By: Galo Dent on 10-11-2022 Erythrocyte distribution width (RBC) [Ratio] 14.9 % 12.0-14.8 [facility] Globulin Calc (S) [Mass/Vol] Ordered By: Rubén Tatum on 10-11-2022 Globulin (S) [Mass/Vol] 2.5 g/dL [facility] Glucose mean value [Mass/vol ume] in Blood Estimated from glycated hemoglobinOrdered By: Galo Dent on 10-11-2022 Average glucose Estimated from glycated hemoglobin (Bld) [Mass/Vol] 120 mg/dL [facility] Hematocrit Auto (Bld) [Volum e fraction]Ordered By: Galo Dent on 10-11-2022 Hematocrit (Bld) [Volume fraction] 37.7 % 38.8-50.0 [facility] Hemoglobin A1c percentageOrd ered By: Galo Dent on 10-11-2022 HbA1c (Bld) [Mass fraction] 5.8 % 4.3-5.6 [facility] Comment on above: Increased risk for d iabetes: 5.7 - 6.4diabetes: >6.4glycemic control for adults with diabetes: <7.0 Hemoglobin [Mass/volume] in BloodOrdered By: Galo Dent on 10-11-2022 Hemoglobin (Bld) [Mass/Vol] 12.7 g/dL 13.0-17.0 [facility] Laboratory - CoagulationOrde red By: Galo Dent on 10-11-2022 PT Coag (PPP) [Time] 11.3 s 9.0-12.9 [facility] Leukocytes [#/volume] correc kal for nucleated erythrocytes in Blood by Automated counOrdered By: Galo Dent on 10-11-2022 WBC corrected for nucl RBC Auto (Bld) [#/Vol] 6.6 10*3/uL 4.1-10.5 [facility] Lymphocytes Auto (Bld) [#/Vo l]Ordered By: Galo Dent on 10-11-2022 Lymphocytes (Bld) [#/Vol] 1.4 10*3/uL 1.00-4.8 [facility] Lymphocytes/100 WBC Auto (Bl d)Ordered By: Galo Dent on 10-11-2022 Lymphocytes/100 WBC (Bld) 21.8 % . [facility] MCH Auto (RBC) [Entitic mass ]Ordered By: Galo Dent on 10-11-2022 MCH (RBC) [Entitic mass] 30.1 pg 27.5-35.2 [facility] MCHC Auto (RBC) [Mass/Vol]Or dered By: Galo Dent on 10-11-2022 MCHC (RBC) [Mass/Vol] 33.7 g/dL 32.5-35.6 [facility] MCV Auto (RBC) [Entitic vol] Ordered By: Galo Dent on 10-11-2022 MCV (RBC) [Entitic vol] 89.4 fL 83.5-101 [facility] Monocytes Auto (Bld) [#/Vol] Ordered By: Galo Dent on 10-11-2022 Monocytes (Bld) [#/Vol] 0.7 10*3/uL 0.0-0.8 [facility] Monocytes/100 WBC Auto (Bld) Ordered By: Galo Dent on 10-11-2022 Monocytes/100 WBC (Bld) 10.2 % . [facility] Neutrophils Auto (Bld) [#/Vo l]Ordered By: Galo Dent on 10-11-2022 Neutrophils (Bld) [#/Vol] 4.2 10*3/uL 1.8-7.7 [facility] Neutrophils/100 WBC Auto (Bl d)Ordered By: Galo Dent on 10-11-2022 Neutrophils/100 WBC (Bld) 63.8 % . [facility] Nucleated erythrocytes [Pres ence] in Blood by Automated countOrdered By: Galo Dent on 10-11-2022 Nucleated RBC Auto Ql (Bld) 0.1 /100{WBC} 0-0.5 [facility] Platelet mean volume Auto (B ld) [Entitic vol]Ordered By: Galo Dent on 10-11-2022 Platelet mean volume (Bld) [Entitic vol] 7.3 fL 6.6-10.1 [facility] Platelet poor plasma interna tional normalized ratio (INR) by coagulation assay (relatOrdered By: Galo Dent on 10-11-2022 INR Coag (PPP) [Relative time] 1.0 {INR} [facility] Comment on above: INR Therapeutic Rang e [...] (Bld) [#/Vol] 203 10*3/uL 150-450 [facility] Protein [Mass/volume] in Ser um or PlasmaOrdered By: Rubén Tatum on 10-11-2022 Protein [Mass/Vol] 6.4 g/dL 6.4-8.9 [facility] RBC Auto (Bld) [#/Vol]Ordere d By: Galo Dent on 10-11-2022 RBC (Bld) [#/Vol] 4.21 10*6/uL 3.90-5.60 [facility] Serum or plasma albumin/glob ulin mass ratioOrdered By: Rubén Tatum on 10-11-2022 Albumin/Globulin [Mass ratio] 1.6 {ratio} [facility] Serum or plasma high density lipoprotein (HDL) cholesterol measurementOrdered By: Rubén Tatum on 10-11-2022 Cholesterol in HDL [Mass/Vol] 42 mg/dL 29-71 [facility] Comment on above: HDL CHOL ATP-III CLA SSIFICATION Cardiovascular RiskHDL > or equal to 60 mg/dL LOWHDL < 40 mg/dL HIGH Serum or plasma total choles terol/high density lipoprotein (HDL) cholesterol mass ratOrdered By: Rubén Tatum on 10-11-2022 Cholesterol.total/Chol esterol in HDL [Mass ratio] 5.3 {ratio} <5.0 [facility] Triglyceride [Mass/volume] i n Serum or PlasmaOrdered By: Rubén Tatum on 10-11-2022 Triglyceride [Mass/Vol] 152 mg/dL 0-149 [facility] Comment on above: TRIG ATP III CLASSIF [...] ng/mL [Mass/Vol] 3965.8 pg/mL 0.0-20.0 [facility] Comment on above: Critical Result : Ca lled to and read back by: HECTOR LOCO at: 10/11/2022 06:45:50 by:[id number] WBC Auto (Bld) [#/Vol]Ordere d By: Galo Dent on 10-11-2022 WBC (Bld) [#/Vol] 6.6 10*3/uL 4.1-10.5 [facility] AMYLASEon 10-10-2022 Amylase [Catalytic activity/Vol] 40 U/L Normal 25-115 [facility] Comment on above: Performed By: #### A MY, CMP, LIPA #### [facility] [address] [address] [address] Carrington Chandler Activated partial thrombopla stin time (aPTT) in platelet poor plasma by coagulation aOrdered By: Galo Dent on 10-10-2022 aPTT Coag (PPP) [Time] 35.9 s 25.1-36.5 [facility] CARDIAC ARLIN ADMITon 023 CK [Catalytic activity/Vol] 530 U/L Critically high 39-308 [facility] Comment on above: Performed By: #### A MY, CMP, LIPA #### [facility] [address] [address] [address] Carrington Chandler CK.MB [Mass/Vol] 60.47 ng/mL Critically high <=3.60 [facility] Comment on above: Performed By: #### A MY, CMP, LIPA #### [facility] [address] [address] [address] Carrington Chandler HSTROP 9166.1 pg/mL Critically high 4.0-76.1 [facility] Comment on above: Result Comment: CUT- OFF POINTS HAVE BEEN ESTABLISHED BASED ON THE FOURTH UNIVERSAL DEFINITIONS OF MYOCARDIAL INFARCTION. THE UPPER REFERENCE LIMIT (URL) OF TROPONIN, DEFINED THE 99TH PERCENTILE OF cTnI DISTRIBUTION IN A REFERENCE POPULATION, HAS BEEN CONFIRMED THE DECISION THRESHOLD FOR [place] DIAGNOSIS. Performed By: #### A MY, CMP, LIPA #### [facility] [address] [address] [address] Carrington Chandler SAULO 108 ng/mL Critically high 16-96 [facility] Comment on above: Performed By: #### A MY, CMP, LIPA #### [facility] [address] [address] [address] Carrington Chandler CBC AUTO DIFFon 10-10-2022 BASO # 0.0 103/ul Normal 0.0-0.1 [facility] Comment on above: Performed By: #### B MP #### [facility] [address] [place] [address] Dr. Carrington Chandler Basophils/100 WBC (Bld) 0.4 % Normal 0.2-2.0 [facility] Comment on above: Performed By: #### B MP #### [facility] [address] [place] [address] Dr. Carrington Chandler EO # 0.3 103/ul Normal 0.0-0.7 [facility] Comment on above: Performed By: #### B MP #### [facility] [address] [place] [address] Dr. Carrington Chandler Eosinophils/100 WBC (Bld) 4.9 % Normal 0.9-7.0 [facility] Comment on above: Performed By: #### B MP #### [facility] [address] [place] [address] Dr. Carrington Chandler Erythrocyte distribution width (RBC) [Ratio] 13.8 % Normal 11.0-15.0 [facility] Comment on above: Performed By: #### B MP #### [facility] [address] [place] [address] Dr. Carrington Chandler Hematocrit (Bld) [Volume fraction] 38.1 % Critically low 42.0-54.0 [facility] Comment on above: Performed By: #### B MP #### [facility] [address] [place] [address] Dr. Carrington Chandler Hemoglobin (Bld) [Mass/Vol] 13.1 g/dL Critically low 14.0-18.0 [facility] Comment on above: Performed By: #### B MP #### [facility] [address] [place] [address] Dr. Carrington Chandler IG # 0.01 10e3/ul Normal 0.00-0.03 [facility] Comment on above: Performed By: #### B MP #### [facility] [address] [place] [address] Dr. Carrington Chandler IG % 0.2 % Normal 0.0-0.5 [facility] Comment on above: Performed By: #### B MP #### [facility] [address] [place] [address] Dr. Carrington Chandler LYMPH # 1.8 103/ul Normal 1.2-3.8 [facility] Comment on above: Performed By: #### B MP #### [facility] [address] [place] [address] Dr. Carrington Chandler Lymphocytes/100 WBC (Bld) 33.5 % Normal 20.5-60.0 [facility] Comment on above: Performed By: #### B MP #### [facility] [address] [place] [address] Dr. Carrington Chandler MANUAL DIFF REQ NO Normal [facility] Comment on above: Performed By: #### B MP #### [facility] [address] [place] [address] Dr. Carrington Chandler MCH (RBC) [Entitic mass] 30.7 pg Normal 25.9-34.0 [facility] Comment on above: Performed By: #### B MP #### [facility] [address] [place] [address] Dr. Carrington Chandler MCHC (RBC) [Mass/Vol] 34.4 g/dL Normal 29.9-35.2 [facility] Comment on above: Performed By: #### B MP #### [facility] [address] [place] [address] Dr. Carrington Chandler MCV (RBC) [Entitic vol] 89.2 fL Normal 80.0-94.0 [facility] Comment on above: Performed By: #### B MP #### [facility] [address] [place] [address] Dr. Carrington Chandler MONO # 0.6 103/ul Normal 0.3-0.8 [facility] Comment on above: Performed By: #### B MP #### [facility] [address] [place] [address] Dr. Carrington Chandler Monocytes/100 WBC (Bld) 11.8 % Normal 1.7-12.0 [facility] Comment on above: Performed By: #### B MP #### [facility] [address] [address] [address] Carrington Chandler NEUT # 2.6 103/ul Normal 1.4-6.5 [facility] Comment on above: Performed By: #### B MP #### [facility] [address] [address] [address] Carrington Chandler Neutrophils/100 WBC (Bld) 49.2 % Normal 43.0-75.0 [facility] Comment on above: Performed By: #### B MP #### [facility] [address] [address] [address] Carrington Chandler Platelet mean volume (Bld) [Entitic vol] 9.2 fL Critically low 9.5-13.5 [facility] Comment on above: Performed By: #### B MP #### [facility] [address] [address] [address] Carrington Chandler PLT 213 103/ul Normal 150-450 [facility] Comment on above: Performed By: #### B MP #### [facility] [address] [address] [address] Carrington Chandler RBC 4.27 106/ul Critically low 4.70-6.10 [facility] Comment on above: Performed By: #### B MP #### [facility] [id number] Carrington Chandler WBC 5.4 103/ul Normal 4.0-11.0 [facility] Comment on above: Performed By: #### B MP #### [facility] [address] [place] [address] Dr. Carrington Chandler LIPASEon 10-10-2022 Lipase [Catalytic activity/Vol] 212.0 U/L Normal 73.0-393.0 [facility] Comment on above: Performed By: #### A MY, CMP, LIPA #### [facility] [address] [address] [address] Carrington Chandler PROF 14(COMP METB)on 03-18-2 023 Albumin [Mass/Vol] 3.9 g/dL Normal 3.4-5.0 [facility] Comment on above: Performed By: #### A MY, CMP, LIPA #### [facility] [address] [address] [address] Carrington Chandler Albumin/Globulin [Mass ratio] 1.2 {ratio} Normal [facility] Comment on above: Performed By: #### A MY, CMP, LIPA #### [facility] [address] [address] [address] Carrington Chandler ALP [Catalytic activity/Vol] 67 U/L Normal 46-116 [facility] Comment on above: Performed By: #### A MY, CMP, LIPA #### [facility] [address] [place] [address] Dr. Carrington Chandler ALT [Catalytic activity/Vol] 30 U/L Normal 16-63 [facility] Comment on above: Performed By: #### A MY, CMP, LIPA #### [facility] [address] [place] [address] Dr. Carrington Chandler Anion gap [Moles/Vol] 12.8 mmol/L Normal [facility] Comment on above: Performed By: #### A MY, CMP, LIPA #### [facility] [address] [place] [address] Dr. Carrington Chandler AST [Catalytic activity/Vol] 58 U/L Critically high 15-37 [facility] Comment on above: Performed By: #### A MY, CMP, LIPA #### [facility] [address] [place] [address] Dr. Carrington Chandler Bilirubin [Mass/Vol] 0.3 mg/dL Normal 0.2-1.0 [facility] Comment on above: Performed By: #### A MY, CMP, LIPA #### [facility] [address] [place] [address] Dr. Carrington Chandler Calcium [Mass/Vol] 8.9 mg/dL Normal 8.5-10.1 [facility] Comment on above: Performed By: #### A MY, CMP, LIPA #### [facility] [address] [address] [address] Carrington Chandler Chloride [Moles/Vol] 101 mmol/L Normal 98-107 [facility] Comment on above: Performed By: #### A MY, CMP, LIPA #### [facility] [address] [address] [address] Carrington Chandler CO2 [Moles/Vol] 26.0 mmol/L Normal 21.0-32.0 [facility] Comment on above: Performed By: #### A MY, CMP, LIPA #### [facility] [address] [address] [address] Carrington Chandler Creatinine [Mass/Vol] 0.98 mg/dL Normal 0.70-1.30 [facility] Comment on above: Performed By: #### A MY, CMP, LIPA #### [facility] [address] [place] [address] Dr. Carrington Chandler EGFR-AF VENEZUELAN >60 Normal >=60 [facility] Comment on above: Performed By: #### A MY, CMP, LIPA #### [facility] [address] [place] [address] Dr. Carrington Chandler EGFR-NON AF VENEZUELAN >60 Normal >=60 [facility] Comment on above: Performed By: #### A MY, CMP, LIPA #### [facility] [address] [place] [address] Dr. Carrington Chandler Globulin (S) [Mass/Vol] 3.2 g/dL Normal [facility] Comment on above: Performed By: #### A MY, CMP, LIPA #### [facility] [address] [place] [address] Dr. Carrington Chandler Glucose [Mass/Vol] 101 mg/dL Normal 74-106 [facility] Comment on above: Performed By: #### A MY, CMP, LIPA #### [facility] [address] [place] [address] Dr. Carrington Chandler Potassium [Moles/Vol] 3.8 mmol/L Normal 3.5-5.1 [facility] Comment on above: Performed By: #### A MY, CMP, LIPA #### [facility] [address] [place] [address] Dr. Carrington Chandler Protein [Mass/Vol] 7.1 g/dL Normal 6.4-8.2 [facility] Comment on above: Performed By: #### A MY, CMP, LIPA #### [facility] [address] [place] [address] Dr. Carrington Chandler Sodium [Moles/Vol] 136 mmol/L Normal 136-145 [facility] Comment on above: Performed By: #### A MY, CMP, LIPA #### [facility] [address] [place] [address] Dr. Carrington Chandler Urea nitrogen [Mass/Vol] 19.0 mg/dL Critically high 7.0-18.0 [facility] Comment on above: Performed By: #### A MY, CMP, LIPA #### [facility] [address] [place] [address] Dr. Carrington Chandler Urea nitrogen/Creatinine [Mass ratio] 19.4 mg/mg Normal [facility] Comment on above: Performed By: #### A MY, CMP, LIPA #### [facility] [address] [place] [address] Dr. Carrington Chandler PROTIMEon 10-10-2022 INR Coag (PPP) [Relative time] {INR} Normal [facility] Comment on above: Performed By: #### B MP #### [facility] [address] [place] [address] Dr. Carrington Chandler INR GUIDELINES SEE BELOW Normal [facility] Comment on above: Result Comment: LYNDON RED INR: 2.0 - 3.0 CONDITIONS NOT LISTED BELOW 2.5 - 3.5 FOR PROSTHETIC HEART VALVE REPLACEMENT 2.5 - 3.5 RECURRENT THROMBOSIS Performed By: #### B MP #### [facility] [address] [place] [address] Dr. Carrington Chandler PT Coag (PPP) [Time] 9.7 s Normal 9.0-11.6 [facility] Comment on above: Performed By: #### B MP #### [facility] [address] [place], [place] [address] Dr. Carrington Chandler PTTon 10-10-2022 aPTT Coag (Bld) [Time] 29.5 s Normal 22.3-36.2 [facility] Comment on above: Performed By: #### B MP #### [facility] [address] [place], [place] [address] Dr. Carrington Chandler XR ABD FLAT UP_PA [...] XIOMARA SCHNEIDER Date: 2022-10-10 00:33 Normal [facility] XR knee RT 3Von 09-09-2022 XR knee RT 3V [facility] [employer] Other XR knee RT 3V [facility] [employer] Other XR knee RT 3V [address] [place] [address] [employer] Other XR knee RT 3V [address] [employer] Other XR knee RT 3V XRay Report [employer] Other XR knee RT 3V Signed [place] [employer] Other XR knee RT 3V Patient: Hector Gaspar MR#: [id number] [employer] Other XR knee RT 3V 187 [employer] Other XR knee RT 3V : 1960 Acct:[id number] [employer] Other XR knee RT 3V Age/Sex: 62 / M ADM Date: 09/09/22 [employer] Other XR knee RT 3V Loc: [facility] Room: Type : REG CLI [employer] Other XR knee RT 3V Attending Dr: Wagner Marrufo DO [employer] Other XR knee RT 3V Copies to: Wagner Marrufo DO [employer] Other XR knee RT 3V Ordering Provider: Judy Marrufo DO [employer] Other XR knee RT 3V Date of Service: 09/09/22 [employer] Other XR knee RT 3V XR/XR knee RT 3V - NOT FOR ER USE: Acute pain of right knee [employer] Other XR knee RT 3V RIGHT KNEE - 3 views N [employer] Other XR knee RT 3V CLINICAL HISTORY: Generalized right knee pain for 2 weeks. [employer] Other XR knee RT 3V COMPARISON: None [employer] Other XR knee RT 3V FINDINGS: [employer] Other XR knee RT 3V Small knee joint effusion. Mild degenerative changes without acute bony process. Presumed loose [employer] Other XR knee RT 3V body seen anteriorly within the joint space. [employer] Other XR knee RT 3V X R/XR knee RT 3V - NOT FOR ER USE [employer] Other XR knee RT 3V IMPRESSION: [employer] Other XR knee RT 3V MILD DEGENERATIVE CH ANGES WITHOUT ACUTE BONY PROCESS. [employer] Other XR knee RT 3V Impression dictated by: Parrish Layton Jr., D.O.09/09/2022 3:40 PM [employer] Other XR knee RT 3V Dictation Location: [place] [address] [employer] Other XR knee RT 3V Transcribed By: PWS 09/09/22 1540 [employer] Other XR knee RT 3V Dictated By: Parrish Layton Jr DO 09/09/22 1539 [employer] Other XR knee RT 3V Signed By: [employer] Other XR knee RT 3V 09/09/22 1540 [employer] Other CBC AUTO DIFFon 09-08-2022 BASO # 0.0 103/ul Normal 0.0-0.1 [facility] Comment on above: Performed By: #### C BC #### [facility] [address] [place] [address] Dr. Carrington Chandler Basophils/100 WBC (Bld) 0.4 % Normal 0.2-2.0 [facility] Comment on above: Performed By: #### C BC #### [facility] [address] [place] [address] Dr. Carrington Chandler EO # 0.3 103/ul Normal 0.0-0.7 [facility] Comment on above: Performed By: #### C BC #### [facility] [address] [address] [address] Carrington Chandler Eosinophils/100 WBC (Bld) 4.9 % Normal 0.9-7.0 [facility] Comment on above: Performed By: #### C BC #### [facility] [address] [place] [address] Dr. Carrington Chandler Erythrocyte distribution width (RBC) [Ratio] 14.0 % Normal 11.0-15.0 [facility] Comment on above: Performed By: #### C BC #### [facility] [address] [place] [address] Dr. Carrington Chandler Hematocrit (Bld) [Volume fraction] 36.9 % Critically low 42.0-54.0 [facility] Comment on above: Performed By: #### C BC #### [facility] [address] [place] [address] Dr. Carrington Chandler Hemoglobin (Bld) [Mass/Vol] 12.2 g/dL Critically low 14.0-18.0 [facility] Comment on above: Performed By: #### C BC #### [facility] [address] [place] [address] Dr. Carrington Chandler IG # 0.01 10e3/ul Normal 0.00-0.03 [facility] Comment on above: Performed By: #### C BC #### [facility] [address] [place] [address] Dr. Carrington Chandler IG % 0.2 % Normal 0.0-0.5 [facility] Comment on above: Performed By: #### C BC #### [facility] [address] [place] [address] Dr. Carrington Chandler LYMPH # 1.7 103/ul Normal 1.2-3.8 [facility] Comment on above: Performed By: #### C BC #### [facility] [address] [place] [address] Dr. Carrington Chandler Lymphocytes/100 WBC (Bld) 30.6 % Normal 20.5-60.0 [facility] Comment on above: Performed By: #### C BC #### [facility] [address] [place] [address] Dr. Carrington Chandler MANUAL DIFF REQ NO Normal [facility] Comment on above: Performed By: #### C BC #### [facility] [address] [place] [address] Dr. Carrington Chandler MCH (RBC) [Entitic mass] 30.3 pg Normal 25.9-34.0 [facility] Comment on above: Performed By: #### C BC #### [facility] [address] [address] [address] Carrington Chandler MCHC (RBC) [Mass/Vol] 33.1 g/dL Normal 29.9-35.2 [facility] Comment on above: Performed By: #### C BC #### [facility] [address] [address] [address] Carrington Chandler MCV (RBC) [Entitic vol] 91.6 fL Normal 80.0-94.0 [facility] Comment on above: Performed By: #### C BC #### [facility] [address] [address] [address] Carrington Chandler MONO # 0.6 103/ul Normal 0.3-0.8 [facility] Comment on above: Performed By: #### C BC #### [facility] [address] [address] [address] Carrington Chandler Monocytes/100 WBC (Bld) 9.9 % Normal 1.7-12.0 [facility] Comment on above: Performed By: #### C BC #### [facility] [address] [address] [address] Carrington Chandler NEUT # 3.0 103/ul Normal 1.4-6.5 [facility] Comment on above: Performed By: #### C BC #### [facility] [address] [address] [address] Carrington Chandler Neutrophils/100 WBC (Bld) 54.0 % Normal 43.0-75.0 [facility] Comment on above: Performed By: #### C BC #### [facility] [address] [address] [address] Carrington Chandler Platelet mean volume (Bld) [Entitic vol] 8.9 fL Critically low 9.5-13.5 [facility] Comment on above: Performed By: #### C BC #### [facility] [address] [address] [address] Carrington Chandler PLT 189 103/ul Normal 150-450 [facility] Comment on above: Performed By: #### C BC #### [facility] [address] [address] [address] Carrington Chandler RBC 4.03 106/ul Critically low 4.70-6.10 [facility] Comment on above: Performed By: #### C BC #### [facility] [address] [address] [address] Carrington Chandler WBC 5.5 103/ul Normal 4.0-11.0 [facility] Comment on above: Performed By: #### C BC #### [facility] [address] [address] [address] Carrington Chandler CRPon 09-08-2022 CRP 0.5 mg/dL Normal <=1.0 [facility] Comment on above: Performed By: #### A MY, CMP, LIPA #### [facility] [address] [place] [address] Dr. Carrington Chandler PROF CHEM 8 (BAS METB)on Anion gap [Moles/Vol] 12.7 mmol/L Normal [facility] Comment on above: Performed By: #### A MY, CMP, LIPA #### [facility] [address] [place] [address] Dr. Carrington Chandler Calcium [Mass/Vol] 8.6 mg/dL Normal 8.5-10.1 [facility] Comment on above: Performed By: #### A MY, CMP, LIPA #### [facility] [address] [address] [address] Carrington Chandler Chloride [Moles/Vol] 102 mmol/L Normal 98-107 [facility] Comment on above: Performed By: #### A MY, CMP, LIPA #### [facility] [address] [place] [address] Dr. Carrington Chandler CO2 [Moles/Vol] 27.2 mmol/L Normal 21.0-32.0 [facility] Comment on above: Performed By: #### A MY, CMP, LIPA #### [facility] [address] [place] [address] Dr. Carrington Chandler Creatinine [Mass/Vol] 1.11 mg/dL Normal 0.70-1.30 [facility] Comment on above: Performed By: #### A MY, CMP, LIPA #### [facility] [address] [address] [address] Carrington Chandler EGFR-AF VENEZUELAN >60 Normal >=60 [facility] Comment on above: Performed By: #### A MY, CMP, LIPA #### [facility] [address] [address] [address] Carrington Chandler EGFR-NON AF VENEZUELAN >60 Normal >=60 [facility] Comment on above: Performed By: #### A MY, CMP, LIPA #### [facility] [address] [address] [address] Carrington Chandler Glucose [Mass/Vol] 132 mg/dL Critically high 74-106 [facility] Comment on above: Performed By: #### A MY, CMP, LIPA #### [facility] [address] [address] [address] Carrington Chandler Potassium [Moles/Vol] 3.9 mmol/L Normal 3.5-5.1 [facility] Comment on above: Performed By: #### A MY, CMP, LIPA #### [facility] [address] [address] [address] Carrington Chandler Sodium [Moles/Vol] 138 mmol/L Normal 136-145 [facility] Comment on above: Performed By: #### A MY, CMP, LIPA #### [facility] [address] [place] [address] Dr. Carrington Chandler Urea nitrogen [Mass/Vol] 18.0 mg/dL Normal 7.0-18.0 [facility] Comment on above: Performed By: #### A MY, CMP, LIPA #### [facility] [address] [place] [address] Dr. Carrington Chandler Urea nitrogen/Creatinine [Mass ratio] 16.2 mg/mg Normal [facility] Comment on above: Performed By: #### A MY, CMP, LIPA #### [facility] [address] [address] [address] Carrington Chandler US [place] DOP LEG [...] CYNTHIA VASQUEZ Date: 2022-09-07 22:52 Normal [facility] HEMOGLOBINon 08-10-2022 Hemoglobin (Bld) [Mass/Vol] 13.3 g/dL Critically low 14.0-18.0 [facility] Comment on above: Performed By: #### B MP #### [facility] [address] [place] [address] Dr. Carrington Chandlre CBC W MANUAL DIFFon 07-11-20 22 ATYPICAL LYMPH # 0.65 103/ul Normal [facility] Comment on above: Performed By: #### A MY, CMP, LIPA #### [facility] [address] [place] [address] Dr. Carrington Chandler ATYPICAL LYMPH % 11 % Normal [facility] Comment on above: Performed By: #### A MY, CMP, LIPA #### [facility] [address] [place] [address] Dr. Carrington Chandler BAND # 0.0 103/ul Normal 0.0-0.3 [facility] Comment on above: Performed By: #### A MY, CMP, LIPA #### [facility] [address] [place] [address] Dr. Carrington Chandler BAND % 0 % Normal 0-5 [facility] Comment on above: Performed By: #### A MY, CMP, LIPA #### [facility] [address] [place] [address] Dr. Carrington Chandler BASOM # 0.00 103/ul Normal 0.00-0.10 [facility] Comment on above: Performed By: #### A MY, CMP, LIPA #### [facility] [address] [place] [address] Dr. Carrington Chandler BASOM % 0.0 % Critically low 0.2-2.[address] [facility] Comment on above: Performed By: #### A MY, CMP, LIPA #### [facility] [address] [place] [address] Dr. Carrington Chandler BLAST # Normal [facility] Comment on above: Performed By: #### A MY, CMP, LIPA #### [facility] [address] [place] [address] Dr. Carrington Chandler BLAST % Normal [facility] Comment on above: Performed By: #### A MY, CMP, LIPA #### [facility] [address] [place] [address] Dr. Carrington Chandler CORRECTED WBC Normal 4.0-11.0 [facility] Comment on above: Performed By: #### A MY, CMP, LIPA #### [facility] [address] [place] [address] Dr. Carrington Chandler EOS # 0.00 103/ul Normal 0.00-0.70 [facility] Comment on above: Performed By: #### A MY, CMP, LIPA #### [facility] [address] [place] [address] Dr. Carrington Chandler EOS% 0.0 % Critically low 0.9-7.0 [facility] Comment on above: Performed By: #### A MY, CMP, LIPA #### [facility] [address] [place] [address] Dr. Carrington Chandler HCT 34.7 % Critically low 42.0-54.[address] [facility] Comment on above: Performed By: #### A MY, CMP, LIPA #### [facility] [address] [address] [address] Carrington Chandler HGB 11.7 g/dl Critically low 14.0-18.[address] [facility] Comment on above: Performed By: #### A MY, CMP, LIPA #### [facility] [address] [address] [address] Carrington Chandler LYMPHM # 0.12 103/ul Critically low 1.20-3.80 [facility] Comment on above: Performed By: #### A MY, CMP, LIPA #### [facility] [address] [place] [address] Dr. Carrington Chandler LYMPHM% 2.0 % Critically low 20.5-60.[address] [facility] Comment on above: Performed By: #### A MY, CMP, LIPA #### [facility] [address] [place] [address] Dr. Carrington Chandler MCH 29.9 pg Normal 25.9-34.0 [facility] Comment on above: Performed By: #### A MY, CMP, LIPA #### [facility] [address] [place] [address] Dr. Carrington Chandler MCHC 33.7 g/dl Normal 29.9-35.2 [facility] Comment on above: Performed By: #### A MY, CMP, LIPA #### [facility] [address] [place] [address] Dr. Carrington Chandler MCV 88.7 fL Normal 80.0-94.0 [facility] Comment on above: Performed By: #### A MY, CMP, LIPA #### [facility] [address] [place] [address] Dr. Carrington Chandler METAMYELOCYTE # Normal [facility] Comment on above: Performed By: #### A MY, CMP, LIPA #### [facility] [address] [place] [address] Dr. Carrington Chandler METAMYELOCYTE % Normal [facility] Comment on above: Performed By: #### A MY, CMP, LIPA #### [facility] [address] [address] [address] Carrington Chandler MONOM# 0.00 103/ul Critically low 0.30-0.80 [facility] Comment on above: Performed By: #### A MY, CMP, LIPA #### [facility] [address] [address] [address] Carrington Chandler MONOM% 0.0 % Critically low 1.7-12.[address] [facility] Comment on above: Performed By: #### A MY, CMP, LIPA #### [facility] [address] [address] [address] Carrington Chnadler MPV 9.4 fL Critically low 9.5-13.[address] [facility] Comment on above: Performed By: #### A MY, CMP, LIPA #### [facility] [address] [place] [address] Dr. Carrington Chandler MYELOCYTE # Normal [facility] Comment on above: Performed By: #### A MY, CMP, LIPA #### [facility] [address] [place] [address] Dr. Carrington Chandler MYELOCYTE % Normal [facility] Comment on above: Performed By: #### A MY, CMP, LIPA #### [facility] [address] [place] [address] Dr. Carrington Chandler NRBC Normal [facility] Comment on above: Performed By: #### A MY, CMP, LIPA #### [facility] [address] [place] [address] Dr. Carrington Chandler PLT 160 103/ul Normal 150-450 [facility] Comment on above: Performed By: #### A MY, CMP, LIPA #### [facility] [address] [place] [address] Dr. Carrington Chandler RBC 3.91 106/ul Critically low 4.70-6.10 [facility] Comment on above: Performed By: #### A MY, CMP, LIPA #### [facility] [address] [place] [address] Dr. Carrington Chandler RDW 12.4 % Normal 11.0-15.0 [facility] Comment on above: Performed By: #### A MY, CMP, LIPA #### [facility] [address] [address] [address] Carrington Chandler SEG # 5.13 103/ul Normal 1.40-6.50 [facility] Comment on above: Performed By: #### A MY, CMP, LIPA #### [facility] [address] [address] [address] Carrington Chandler SEG % 87.0 % Critically high 43.0-75.0 [facility] Comment on above: Performed By: #### A MY, CMP, LIPA #### [facility] [address] [place] [address] Dr. Carrington Chandler WBC 5.9 103/ul Normal 4.0-11.0 [facility] Comment on above: Performed By: #### A MY, CMP, LIPA #### [facility] [address] [place] [address] Dr. Carrington Chandler PROF 14(COMP METB)on 022 Albumin [Mass/Vol] 3.0 g/dL Critically low 3.4-5.0 [facility] Comment on above: Performed By: #### C MP #### [facility] [address] [place] [address] Dr. Carrington Chandler Albumin/Globulin [Mass ratio] 0.9 {ratio} Normal [facility] Comment on above: Performed By: #### C MP #### [facility] [address] [place] [address] Dr. Carrington Chandler ALP [Catalytic activity/Vol] 56 U/L Normal 46-116 [facility] Comment on above: Performed By: #### C MP #### [facility] [address] [place] [address] Dr. Carrington Chandler ALT [Catalytic activity/Vol] 21 U/L Normal 16-63 [facility] Comment on above: Performed By: #### C MP #### [facility] [address] [address] [address] Carrington Chandler Anion gap [Moles/Vol] 12.9 mmol/L Normal [facility] [facility] Comment [facility] above: Performed By: #### C MP #### [facility] [address] [address] [address] Carrington Chandler AST [Catalytic activity/Vol] 15 U/L Normal 15-37 [facility] Comment on above: Performed By: #### C MP #### [facility] [address] [address] [address] Carrington Chandler Bilirubin [Mass/Vol] 0.2 mg/dL Normal 0.2-1.0 [facility] Comment on above: Performed By: #### C MP #### [facility] [address] [place] [address] Dr. Carrington Chandler Calcium [Mass/Vol] 8.1 mg/dL Critically low 8.5-10.1 [facility] Comment on above: Performed By: #### C MP #### [facility] [address] [place] [address] Dr. Carrington Chandler Chloride [Moles/Vol] 104 mmol/L Normal 98-107 [facility] Comment on above: Performed By: #### C MP #### [facility] [address] [place] [address] Dr. Carrington Chandler CO2 [Moles/Vol] 24.6 mmol/L Normal 21.0-32.0 [facility] Comment on above: Performed By: #### C MP #### [facility] [address] [place] [address] Dr. Carrington Chandler Creatinine [Mass/Vol] 0.88 mg/dL Normal 0.70-1.30 [facility] Comment on above: Performed By: #### C MP #### [facility] [address] [place] [address] Dr. Carrington Chandler EGFR-AF VENEZUELAN >60 Normal >=60 [facility] Comment on above: Performed By: #### C MP #### [facility] [address] [place] [address] Dr. Carrington Chandler EGFR-NON AF VENEZUELAN >60 Normal >=60 [facility] Comment on above: Performed By: #### C MP #### [facility] [address] [address] [address] Carrington Chandler Globulin (S) [Mass/Vol] 3.3 g/dL Normal [facility] Comment on above: Performed By: #### C MP #### [facility] [address] [address] [address] Carrington Chandler Glucose [Mass/Vol] 174 mg/dL Critically high 74-106 [facility] Comment on above: Performed By: #### C MP #### [facility] [address] [address] [address] Carrington Chandler Potassium [Moles/Vol] 3.5 mmol/L Normal 3.5-5.1 [facility] Comment on above: Performed By: #### C MP #### [facility] [address] [place] [address] Dr. Carrington Chandler Protein [Mass/Vol] 6.3 g/dL Critically low 6.4-8.2 [facility] Comment on above: Performed By: #### C MP #### [facility] [address] [place] [address] Dr. Carrington Chandler Sodium [Moles/Vol] 138 mmol/L Normal 136-145 [facility] Comment on above: Performed By: #### C MP #### [facility] [address] [address] [address] Carrington Chandler Urea nitrogen [Mass/Vol] 17.0 mg/dL Normal 7.0-18.0 [facility] Comment on above: Performed By: #### C MP #### [facility] [address] [address] [address] Carrington Chandler Urea nitrogen/Creatinine [Mass ratio] 19.3 mg/mg Normal [facility] Comment on above: Performed By: #### C MP #### [facility] [address] [place] [address] Dr. Carrington Chandler CBC AUTO DIFFon 07-10-2022 BASO # 0.0 103/ul Normal 0.0-0.1 [facility] Comment on above: Performed By: #### B MP #### [facility] [address] [address] [address] Carrington Chandler Basophils/100 WBC (Bld) 0.2 % Normal 0.2-2.0 [facility] Comment on above: Performed By: #### B MP #### [facility] [address] [address] [address] Carrington Chandler EO # 0.1 103/ul Normal 0.0-0.7 [facility] Comment on above: Performed By: #### B MP #### [facility] [address] [address] [address] Carrington Chandler Eosinophils/100 WBC (Bld) 2.3 % Normal 0.9-7.0 [facility] Comment on above: Performed By: #### B MP #### [facility] [address] [place] [address] Dr. Carrington Chandler Erythrocyte distribution width (RBC) [Ratio] 12.5 % Normal 11.0-15.0 [facility] Comment on above: Performed By: #### B MP #### [facility] [address] [place] [address] Dr. Carrington Chandler Hematocrit (Bld) [Volume fraction] 36.8 % Critically low 42.0-54.0 [facility] Comment on above: Performed By: #### B MP #### [facility] [address] [place] [address] Dr. Carrington Chandler Hemoglobin (Bld) [Mass/Vol] 12.3 g/dL Critically low 14.0-18.0 [facility] Comment on above: Performed By: #### B MP #### [facility] [address] [place] [address] Dr. Carrington Chandler IG # 0.01 10e3/ul Normal 0.00-0.03 [facility] Comment on above: Performed By: #### B MP #### [facility] [address] [place] [address] Dr. Carrington Chandler IG % 0.2 % Normal 0.0-0.5 [facility] Comment on above: Performed By: #### B MP #### [facility] [address] [address] [address] Carrington Chandler LYMPH # 1.5 103/ul Normal 1.2-3.8 [facility] Comment on above: Performed By: #### B MP #### [facility] [address] [address] [address] Carrington Chandler Lymphocytes/100 WBC (Bld) 34.7 % Normal 20.5-60.0 [facility] Comment on above: Performed By: #### B MP #### [facility] [address] [place] [address] Dr. Carrington Chandler MANUAL DIFF REQ NO Normal [facility] Comment on above: Performed By: #### B MP #### [facility] [address] [place] [address] Dr. Carrington Chandler MCH (RBC) [Entitic mass] 29.8 pg Normal 25.9-34.0 [facility] Comment on above: Performed By: #### B MP #### [facility] [address] [place] [address] Dr. Carrington Chandler MCHC (RBC) [Mass/Vol] 33.4 g/dL Normal 29.9-35.2 [facility] Comment on above: Performed By: #### B MP #### [facility] [address] [place] [address] Dr. Carrington Chandler MCV (RBC) [Entitic vol] 89.1 fL Normal 80.0-94.0 [facility] Comment on above: Performed By: #### B MP #### [facility] [address] [place] [address] Dr. Carrington Chandler MONO # 0.5 103/ul Normal 0.3-0.8 [facility] Comment on above: Performed By: #### B MP #### [facility] [address] [place] [address] Dr. Carrington Chandler Monocytes/100 WBC (Bld) 11.0 % Normal 1.7-12.0 [facility] Comment on above: Performed By: #### B MP #### [facility] [address] [address] [address] Carrington Chandler NEUT # 2.2 103/ul Normal 1.4-6.5 [facility] Comment on above: Performed By: #### B MP #### [facility] [address] [address] [address] Carrington Chandler Neutrophils/100 WBC (Bld) 51.6 % Normal 43.0-75.0 [facility] Comment on above: Performed By: #### B MP #### [facility] [address] [place] [address] Dr. Carrington Chandler Platelet mean volume (Bld) [Entitic vol] 9.0 fL Critically low 9.5-13.5 [facility] Comment on above: Performed By: #### B MP #### [facility] [address] [place] [address] Dr. Carrington Chandler PLT 147 103/ul Critically low 150-[address] [facility] Comment on above: Performed By: #### B MP #### [facility] [address] [place] [address] Dr. Carrington Chandler RBC 4.13 106/ul Critically low 4.70-6.10 [facility] Comment on above: Performed By: #### B MP #### [facility] [address] [place] [address] Dr. Carrington Chandler WBC 4.4 103/ul Normal 4.0-11.0 [facility] Comment on above: Performed By: #### B MP #### [facility] [address] [place] [address] Dr. Carrington Chandler CULTURE SPUTUMon 07-10-2022 CULTURE SPUTUM Culture Observations : NORMAL RESPIRATORY SANDY. Normal [facility] Comment on above: Performed By: #### C MP #### [facility] [address] [place] [address] Dr. Carrington Chandler MAGNESIUMon 07-10-2022 Magnesium [Mass/Vol] 2.0 mg/dL Normal 1.8-2.4 [facility] Comment on above: Performed By: #### C MP #### [facility] [address] [address] [address] Carrington Chanlder PROF 14(COMP METB)on 022 Albumin [Mass/Vol] 2.8 g/dL Critically low 3.4-5.0 [facility] Comment on above: Performed By: #### B MP #### [facility] [address] [place] [address] Dr. Carrington Chandler Albumin/Globulin [Mass ratio] 0.8 {ratio} Normal [facility] Comment on above: Performed By: #### B MP #### [facility] [address] [place] [address] Dr. Carrington Chandler ALP [Catalytic activity/Vol] 55 U/L Normal 46-116 [facility] Comment on above: Performed By: #### B MP #### [facility] [address] [place] [address] Dr. Carrington Chandler ALT [Catalytic activity/Vol] 22 U/L Normal 16-63 [facility] Comment on above: Performed By: #### B MP #### [facility] [address] [place] [address] Dr. Carrington Chandler Anion gap [Moles/Vol] 10.3 mmol/L Normal [facility] Comment on above: Performed By: #### B MP #### [facility] [address] [place] [address] Dr. Carrington Chandler AST [Catalytic activity/Vol] 22 U/L Normal 15-37 [facility] Comment on above: Performed By: #### B MP #### [facility] [address] [place] [address] Dr. Carrington Chandler Bilirubin [Mass/Vol] 0.2 mg/dL Normal 0.2-1.0 [facility] Comment on above: Performed By: #### B MP #### [facility] [address] [place] [address] Dr. Carrington Chandler Calcium [Mass/Vol] 8.0 mg/dL Critically low 8.5-10.1 [facility] Comment on above: Performed By: #### B MP #### [facility] [address] [address] [address] Carrington Chandler Chloride [Moles/Vol] 105 mmol/L Normal 98-107 [facility] Comment on above: Performed By: #### B MP #### [facility] [address] [address] [address] Carrington Chandler CO2 [Moles/Vol] 28.1 mmol/L Normal 21.0-32.0 [facility] Comment on above: Performed By: #### B MP #### [facility] [address] [place] [address] Dr. Carrington Chandler Creatinine [Mass/Vol] 0.89 mg/dL Normal 0.70-1.30 [facility] Comment on above: Performed By: #### B MP #### [facility] [address] [place] [address] Dr. Carrington Chandler EGFR-AF VENEZUELAN >60 Normal >=60 [facility] Comment on above: Performed By: #### B MP #### [facility] [address] [place] [address] Dr. Carrington Chandler EGFR-NON AF VENEZUELAN >60 Normal >=60 [facility] Comment on above: Performed By: #### B MP #### [facility] [address] [place] [address] Dr. Carrington Chandler Globulin (S) [Mass/Vol] 3.7 g/dL Normal [facility] Comment on above: Performed By: #### B MP #### [facility] [address] [address] [address] Carrington Chandler Glucose [Mass/Vol] 124 mg/dL Critically high 74-106 [facility] Comment on above: Performed By: #### B MP #### [facility] [address] [place] [address] Dr. Carrington Chandler Potassium [Moles/Vol] 3.4 mmol/L Critically low 3.5-5.1 [facility] Comment on above: Performed By: #### B MP #### [facility] [address] [place] [address] Dr. Carrington Chandler Protein [Mass/Vol] 6.5 g/dL Normal 6.4-8.2 [facility] Comment on above: Performed By: #### B MP #### [facility] [address] [place] [address] Dr. Carrington Chandler Sodium [Moles/Vol] 140 mmol/L Normal 136-145 [facility] Comment on above: Performed By: #### B MP #### [facility] [address] [place] [address] Dr. Carrington Chandler Urea nitrogen [Mass/Vol] 15.0 mg/dL Normal 7.0-18.0 [facility] Comment on above: Performed By: #### B MP #### [facility] [address] [place] [address] Dr. Carrington Chandler Urea nitrogen/Creatinine [Mass ratio] 16.9 mg/mg Normal [facility] Comment on above: Performed By: #### B MP #### [facility] [address] [place] [address] Dr. Carrington Chandler CBC AUTO DIFFon 07-09-2022 BASO # 0.0 103/ul Normal 0.0-0.1 [facility] Comment on above: Performed By: #### A MY, CMP, LIPA #### [facility] [address] [place] [address] Dr. Carrington Chandler Basophils/100 WBC (Bld) 0.2 % Normal 0.2-2.0 [facility] Comment on above: Performed By: #### A MY, CMP, LIPA #### [facility] [address] [place] [address] Dr. Carrington Chandler EO # 0.1 103/ul Normal 0.0-0.7 [facility] Comment on above: Performed By: #### A MY, CMP, LIPA #### [facility] [address] [place] [address] Dr. Carrington Chandler Eosinophils/100 WBC (Bld) 1.9 % Normal 0.9-7.0 [facility] Comment on above: Performed By: #### A MY, CMP, LIPA #### [facility] [address] [place] [address] Dr. Carrington Chandler Erythrocyte distribution width (RBC) [Ratio] 12.6 % Normal 11.0-15.0 [facility] Comment on above: Performed By: #### A MY, CMP, LIPA #### [facility] [address] [place] [address] Dr. Carrington Chandler Hematocrit (Bld) [Volume fraction] 38.8 % Critically low 42.0-54.0 [facility] Comment on above: Performed By: #### A MY, CMP, LIPA #### [facility] [address] [place] [address] Dr. Carrington Chandler Hemoglobin (Bld) [Mass/Vol] 12.9 g/dL Critically low 14.0-18.0 [facility] Comment on above: Performed By: #### A MY, CMP, LIPA #### [facility] [address] [place] [address] Dr. Carrington Chandler IG # 0.01 10e3/ul Normal 0.00-0.03 [facility] Comment on above: Performed By: #### A MY, CMP, LIPA #### [facility] [address] [place] [address] Dr. Carrington Chandler IG % 0.2 % Normal 0.0-0.5 [facility] Comment on above: Performed By: #### A MY, CMP, LIPA #### [facility] [address] [place] [address] Dr. Carrington Chandler LYMPH # 1.7 103/ul Normal 1.2-3.8 [facility] Comment on above: Performed By: #### A MY, CMP, LIPA #### [facility] [address] [place] [address] Dr. Carrington Chandler Lymphocytes/100 WBC (Bld) 34.7 % Normal 20.5-60.0 [facility] Comment on above: Performed By: #### A MY, CMP, LIPA #### [facility] [address] [place] [address] Dr. Carrington Chandler MANUAL DIFF REQ NO Normal [facility] Comment on above: Performed By: #### A MY, CMP, LIPA #### [facility] [address] [place] [address] Dr. Carrington Chandler MCH (RBC) [Entitic mass] 29.9 pg Normal 25.9-34.0 [facility] Comment on above: Performed By: #### A MY, CMP, LIPA #### [facility] [address] [place] [address] Dr. Carrington Chandler MCHC (RBC) [Mass/Vol] 33.2 g/dL Normal 29.9-35.2 [facility] Comment on above: Performed By: #### A MY, CMP, LIPA #### [facility] [address] [place] [address] Dr. Carrington Chandler MCV (RBC) [Entitic vol] 90.0 fL Normal 80.0-94.0 [facility] Comment on above: Performed By: #### A MY, CMP, LIPA #### [facility] [address] [place] [address] Dr. Carrington Chandler MONO # 0.5 103/ul Normal 0.3-0.8 [facility] Comment on above: Performed By: #### A MY, CMP, LIPA #### [facility] [address] [place] [address] Dr. Carrington Chandler Monocytes/100 WBC (Bld) 10.4 % Normal 1.7-12.0 [facility] Comment on above: Performed By: #### A MY, CMP, LIPA #### [facility] [address] [place] [address] Dr. Carrington Chandler NEUT # 2.5 103/ul Normal 1.4-6.5 [facility] Comment on above: Performed By: #### A MY, CMP, LIPA #### [facility] [address] [place] [address] Dr. Carrington Chandler Neutrophils/100 WBC (Bld) 52.6 % Normal 43.0-75.0 [facility] Comment on above: Performed By: #### A MY, CMP, LIPA #### [facility] [address] [address] [address] Carrington Chandler Platelet mean volume (Bld) [Entitic vol] 9.0 fL Critically low 9.5-13.5 [facility] Comment on above: Performed By: #### A MY, CMP, LIPA #### [facility] [address] [address] [address] Carrington Chandler PLT 155 103/ul Normal 150-450 [facility] Comment on above: Performed By: #### A MY, CMP, LIPA #### [facility] [address] [address] [address] Carrington Chandler RBC 4.31 106/ul Critically low 4.70-6.10 [facility] Comment on above: Performed By: #### A MY, CMP, LIPA #### [facility] [address] [address] [address] Carrington Chandler WBC 4.8 103/ul Normal 4.0-11.0 [facility] Comment on above: Performed By: #### A MY, CMP, LIPA #### [facility] [address] [address] [address] Carrington Chandler Covid-19 PCR ([facility])on 06-25 SARS-CoV-2 (COVID-19) RNA CHARLIE+probe Ql (Unsp spec) Not detected Normal NOT DETECTED [facility] Comment on above: Result Comment: When [...] for this test is supported by the [place] of Health and Human Service's declaration that [...] used). Performed By: #### C MP #### [facility] [address] [address] [address] Carrington Chandler ER URINE PROFILEon 2 Bilirubin Ql (U) Negative Normal NEGATIVE [facility] Comment on above: Performed By: #### C MP #### [facility] [address] [place] [address] Dr. Carrington Chandler Clarity (U) CLEAR Normal CLEAR [facility] Comment on above: Performed By: #### C MP #### [facility] [address] [address] [address] Carrington Chandler Color (U) LT. YELLOW Normal YELLOW [facility] Comment on above: Performed By: #### C MP #### [facility] [address] [place] [address] Dr. Carrington Chandler ERUAHD A micrscopic examina tion will be performed if indicated. Normal [facility] Comment on above: Performed By: #### C MP #### [facility] [address] [place] [address] Dr. Carrington Chandler Glucose Ql (U) Negative Normal NEGATIVE [facility] Comment on above: Performed By: #### C MP #### [facility] [address] [place] [address] Dr. Carrington Chandler Hemoglobin Ql (U) Negative Normal NEGATIVE [facility] Comment on above: Performed By: #### C MP #### [facility] [address] [place] [address] Dr. Carrington Chandler Ketones Ql (U) Negative Normal NEGATIVE [facility] Comment on above: Performed By: #### C MP #### [facility] [address] [place] [address] Dr. Carrington Chandler LEUKOCYTES Negative Normal NEGATIVE [facility] Comment on above: Performed By: #### C MP #### [facility] [address] [place] [address] Dr. Carrington Chandler Nitrite Ql (U) Negative Normal NEGATIVE [facility] Comment on above: Performed By: #### C MP #### [facility] [address] [address] [address] Carrington Chandler pH (U) 6.0 [pH] Normal 5-9 [facility] Comment on above: Performed By: #### C MP #### [facility] [address] [address] [address] Carrington Chandler SPEC GRAVITY 1.010 Normal 1.005-<=1. 025 [facility] Comment on above: Performed By: #### C MP #### [facility] [address] [address] [address] Carrington Chandler UA PROTEIN Negative Normal NEGATIVE/ TRACE [facility] Comment on above: Performed By: #### C MP #### [facility] [address] [place] [address] Dr. Carrington Chandler UR MICRO IND NOT INDICATED Normal [facility] Comment on above: Performed By: #### C MP #### [facility] [address] [address] [address] Carrington Chandler Urobilinogen Qn (U) 0.2 {Lars'U}/dL Normal 0.2 - 1. 0 [facility] Comment on above: Performed By: #### C MP #### [facility] [address] [place] [address] Dr. Carrington Chandler PROF CHEM 8 (BAS METB)on Anion gap [Moles/Vol] 6.6 mmol/L Normal [facility] Comment on above: Performed By: #### B MP #### [facility] [address] [place] [address] Dr. Carrington Chandler Calcium [Mass/Vol] 8.2 mg/dL Critically low 8.5-10.1 [facility] Comment on above: Performed By: #### B MP #### [facility] [address] [place] [address] Dr. Carrington Chandler Chloride [Moles/Vol] 102 mmol/L Normal 98-107 [facility] Comment on above: Performed By: #### B MP #### [facility] [address] [address] [address] Carrington Chandler CO2 [Moles/Vol] 31.2 mmol/L Normal 21.0-32.0 [facility] Comment on above: Performed By: #### B MP #### [facility] [address] [address] [address] Carrington Chandler Creatinine [Mass/Vol] 0.90 mg/dL Normal 0.70-1.30 [facility] Comment on above: Performed By: #### B MP #### [facility] [address] [address] [address] Carrington Chandler EGFR-AF VENEZUELAN >60 Normal >=60 [facility] Comment on above: Performed By: #### B MP #### [facility] [address] [place] [address] Dr. Carrington Chandler EGFR-NON AF VENEZUELAN >60 Normal >=60 [facility] Comment on above: Performed By: #### B MP #### [facility] [address] [place] [address] Dr. Carrington Chandler Glucose [Mass/Vol] 100 mg/dL Normal 74-106 [facility] Comment on above: Performed By: #### B MP #### [facility] [address] [place] [address] Dr. Carrington Chandler Potassium [Moles/Vol] 3.8 mmol/L Normal 3.5-5.1 [facility] Comment on above: Performed By: #### B MP #### [facility] [address] [address] [address] Carrington Chandler Sodium [Moles/Vol] 136 mmol/L Normal 136-145 [facility] Comment on above: Performed By: #### B MP #### [facility] [address] [place] [address] Dr. Carrington Chandler Urea nitrogen [Mass/Vol] 16.0 mg/dL Normal 7.0-18.0 [facility] Comment on above: Performed By: #### B MP #### [facility] [address] [place] [address] Dr. Carrington Chandler Urea nitrogen/Creatinine [Mass ratio] 17.8 mg/mg Normal [facility] Comment on above: Performed By: #### B MP #### [facility] [address] [place] [address] Dr. Carrington Chandler XR CHEST 1 Von [...] TEE LEWIS Date: 2022-07-09 20:51 Normal [facility] AMYLASEon 07-08-2022 Amylase [Catalytic activity/Vol] 40 U/L Normal 25-115 [facility] Comment on above: Performed By: #### A MY, CMP, LIPA #### [facility] [address] [place] [address] Dr. Carrington Chandler CBC AUTO DIFFon 07-08-2022 BASO # 0.0 103/ul Normal 0.0-0.1 [facility] Comment on above: Performed By: #### C BC #### [facility] [address] [place] [address] Dr. Carrington Chandler Basophils/100 WBC (Bld) 0.3 % Normal 0.2-2.0 [facility] Comment on above: Performed By: #### C BC #### [facility] [address] [place] [address] Dr. Carrington Chandler EO # 0.1 103/ul Normal 0.0-0.7 [facility] Comment on above: Performed By: #### C BC #### [facility] [address] [place] [address] Dr. Carrington Chandler Eosinophils/100 WBC (Bld) 1.2 % Normal 0.9-7.0 [facility] Comment on above: Performed By: #### C BC #### [facility] [address] [place] [address] Dr. Carrington Chandler Erythrocyte distribution width (RBC) [Ratio] 12.9 % Normal 11.0-15.0 [facility] Comment on above: Performed By: #### C BC #### [facility] [address] [place] [address] Dr. Carrington Chandler Hematocrit (Bld) [Volume fraction] 43.2 % Normal 42.0-54.0 [facility] Comment on above: Performed By: #### C BC #### [facility] [address] [place] [address] Dr. Carrington Chandler Hemoglobin (Bld) [Mass/Vol] 14.4 g/dL Normal 14.0-18.0 [facility] Comment on above: Performed By: #### C BC #### [facility] [address] [place] [address] Dr. Carrington Chandler IG # 0.02 10e3/ul Normal 0.00-0.03 [facility] Comment on above: Performed By: #### C BC #### [facility] [address] [place] [address] Dr. Carrington Chandler IG % 0.3 % Normal 0.0-0.5 [facility] Comment on above: Performed By: #### C BC #### [facility] [address] [place] [address] Dr. Carrington Chandler LYMPH # 1.6 103/ul Normal 1.2-3.8 [facility] Comment on above: Performed By: #### C BC #### [facility] [address] [place] [address] Dr. Carrington Chandler Lymphocytes/100 WBC (Bld) 24.0 % Normal 20.5-60.0 [facility] Comment on above: Performed By: #### C BC #### [facility] [address] [place] [address] Dr. Carrington Chandler MANUAL DIFF REQ NO Normal [facility] Comment on above: Performed By: #### C BC #### [facility] [address] [place] [address] Dr. Carrington Chandler MCH (RBC) [Entitic mass] 30.2 pg Normal 25.9-34.0 [facility] Comment on above: Performed By: #### C BC #### [facility] [address] [place] [address] Dr. Carrington Chandler MCHC (RBC) [Mass/Vol] 33.3 g/dL Normal 29.9-35.2 [facility] Comment on above: Performed By: #### C BC #### [facility] [address] [place] [address] Dr. Carrington Chandler MCV (RBC) [Entitic vol] 90.6 fL Normal 80.0-94.0 [facility] Comment on above: Performed By: #### C BC #### [facility] [address] [place] [address] Dr. Carrington Chandler MONO # 0.6 103/ul Normal 0.3-0.8 [facility] Comment on above: Performed By: #### C BC #### [facility] [address] [place] [address] Dr. Carrington Chandler Monocytes/100 WBC (Bld) 9.4 % Normal 1.7-12.0 [facility] Comment on above: Performed By: #### C BC #### [facility] [address] [place] [address] Dr. Carrington Chandler NEUT # 4.4 103/ul Normal 1.4-6.5 [facility] Comment on above: Performed By: #### C BC #### [facility] [address] [place] [address] Dr. Carrington Chandler Neutrophils/100 WBC (Bld) 64.8 % Normal 43.0-75.0 [facility] Comment on above: Performed By: #### C BC #### [facility] [address] [place] [address] Dr. Carrington Chandler Platelet mean volume (Bld) [Entitic vol] 9.5 fL Normal 9.5-13.5 [facility] Comment on above: Performed By: #### C BC #### [facility] [address] [place] [address] Dr. Carrington Chandler PLT 174 103/ul Normal 150-450 [facility] Comment on above: Performed By: #### C BC #### [facility] [address] [place], [place] [address] Dr. Carrington Chandler RBC 4.77 106/ul Normal 4.70-6.10 [facility] Comment on above: Performed By: #### C BC #### [facility] [address] [place], [place] [address] Dr. Carrington Chandler WBC 6.7 103/ul Normal 4.0-11.0 [facility] Comment on above: Performed By: #### C BC #### [facility] [address] [place], [place] [address] Dr. Carrington Chandler Covid-19 PCR ([facility])on 06-25 SARS-CoV-2 (COVID-19) RNA CHARLIE+probe Ql (Unsp spec) Not detected Normal NOT DETECTED [facility] Comment on above: Result Comment: When [...] for this test is supported by the [employer] of Health and Human Service's declaration [...] used). Performed By: #### B MP #### [facility] [address] [place] [id number] Carrington Chandler INFLUENZA A AND B AGon 07-08 INFLUANEGH SEE BELOW Normal [facility] Comment on above: Result Comment: Nega tive for Flu A protein angiten. Infection due to Flu A cannot be ruled out. Flu A angiten in the sample may be below the detection limit of the test. Performed By: #### B MP #### [facility] [address] [place] [address] Dr. Carrington Chandler [facility] SEE BELOW Normal [facility] Comment on above: Result Comment: Nega tive for Flu B protein antigen. Infection due to Flu B cannot be ruled out. Flu B antigen in the sample may be below the detection limit of the test. Performed By: #### B MP #### [facility] [address] [place] [address] Dr. Carrington Chandler INFLUENZA A AG Negative Normal NEGATIVE SEE COMMENT [facility] Comment on above: Performed By: #### B MP #### [facility] [address] [place] [address] Dr. Carrington Chandler INFLUENZA B AG Negative Normal NEGATIVE SEE COMMENT [facility] Comment on above: Performed By: #### B MP #### [facility] [address] [place] [address] Dr. Carrington Chandler INTERNAL CONTROLS Within Normal Limits Normal Wi thin Normal Limits [facility] Comment on above: Performed By: #### B MP #### [facility] [address] [place] [address] Dr. Carrington Chandler LIPASEon 07-08-2022 Lipase [Catalytic activity/Vol] 195.0 U/L Normal 73.0-393.0 [facility] Comment on above: Performed By: #### A MY, CMP, LIPA #### [facility] [address] [place] [address] Dr. Carrington Chandler PROF 14(COMP METB)on 022 Albumin [Mass/Vol] 3.4 g/dL Normal 3.4-5.0 [facility] Comment on above: Performed By: #### A MY, CMP, LIPA #### [facility] [address] [place] [address] Dr. Carrington Chandler Albumin/Globulin [Mass ratio] 0.8 {ratio} Normal [facility] Comment on above: Performed By: #### A MY, CMP, LIPA #### [facility] [address] [place] [address] Dr. Carrington Chandler ALP [Catalytic activity/Vol] 61 U/L Normal 46-116 [facility] Comment on above: Performed By: #### A MY, CMP, LIPA #### [facility] [address] [place] [address] [address] Carrington Chandler ALT [Catalytic activity/Vol] 26 U/L Normal 16-63 [facility] Comment on above: Performed By: #### A MY, CMP, LIPA #### [facility] [address] [place] [address] [address] Carrington Chandler Anion gap [Moles/Vol] 11.0 mmol/L Normal [facility] Comment on above: Performed By: #### A MY, CMP, LIPA #### [facility] [address] [place] [address] Dr. Carrington Chandler AST [Catalytic activity/Vol] 30 U/L Normal 15-37 [facility] Comment on above: Performed By: #### A MY, CMP, LIPA #### [facility] [address] [place] [address] Dr. Carrington Chandler Bilirubin [Mass/Vol] 0.3 mg/dL Normal 0.2-1.0 [facility] Comment on above: Performed By: #### A MY, CMP, LIPA #### [facility] [address] [place] [address] Dr. Carrington Chandler Calcium [Mass/Vol] 8.4 mg/dL Critically low 8.5-10.1 [facility] Comment on above: Performed By: #### A MY, CMP, LIPA #### [facility] [address] [place] [address] Dr. Carrington Chandler Chloride [Moles/Vol] 102 mmol/L Normal 98-107 [facility] Comment on above: Performed By: #### A MY, CMP, LIPA #### [facility] [address] [place] [address] Dr. Carrington Chandler CO2 [Moles/Vol] 28.1 mmol/L Normal 21.0-32.0 [facility] Comment on above: Performed By: #### A MY, CMP, LIPA #### [facility] [address] [place] [address] [address] Carrington Chandler Creatinine [Mass/Vol] 0.99 mg/dL Normal 0.70-1.30 [facility] Comment on above: Performed By: #### A MY, CMP, LIPA #### [facility] [address] [place] [address] [address] Carrington Chandler EGFR-AF VENEZUELAN >60 Normal >=60 [facility] Comment on above: Performed By: #### A MY, CMP, LIPA #### [facility] [address] [place] [address] [address] Carrington Chandler EGFR-NON AF VENEZUELAN >60 Normal >=60 [facility] Comment on above: Performed By: #### A MY, CMP, LIPA #### [facility] [address] [place] [address] [address] Carrington Chandler Globulin (S) [Mass/Vol] 4.3 g/dL Normal [facility] Comment on above: Performed By: #### A MY, CMP, LIPA #### [facility] [address] [place] [address] [address] Carrington Chandler Glucose [Mass/Vol] 107 mg/dL Critically high 74-106 [facility] Comment on above: Performed By: #### A MY, CMP, LIPA #### [facility] [address] [place] [address] [address] Carrington Chandler Potassium [Moles/Vol] 4.1 mmol/L Normal 3.5-5.1 [facility] Comment on above: Performed By: #### A MY, CMP, LIPA #### [facility] [address] [place] [address] [address] Carrington Chandler Protein [Mass/Vol] 7.7 g/dL Normal 6.4-8.2 [facility] Comment on above: Performed By: #### A MY, CMP, LIPA #### [facility] [address] [place] [address] [address] Carrington Chandler Sodium [Moles/Vol] 137 mmol/L Normal 136-145 [facility] Comment on above: Performed By: #### A MY, CMP, LIPA #### [facility] [address] [place] [address] Dr. Carrington Chandler Urea nitrogen [Mass/Vol] 23.0 mg/dL Critically high 7.0-18.0 [facility] Comment on above: Performed By: #### A MY, CMP, LIPA #### [facility] [address] [place] [address] Dr. Carrington Chandler Urea nitrogen/Creatinine [Mass ratio] 23.2 mg/mg Normal [facility] Comment on above: Performed By: #### A MY, CMP, LIPA #### [facility] [address] [place] [address] Dr. Carrington Chandler CBC AUTO DIFFon 07-03-2022 BASO # 0.0 103/ul Normal 0.0-0.1 [facility] Comment on above: Performed By: #### C MP #### [facility] [address] [place] [address] Dr. Carrington Chandler Basophils/100 WBC (Bld) 0.5 % Normal 0.2-2.0 [facility] Comment on above: Performed By: #### C MP #### [facility] [address] [place] [address] Dr. Carrington Chandler EO # 0.3 103/ul Normal 0.0-0.7 [facility] Comment on above: Performed By: #### C MP #### [facility] [address] [place] [address] Dr. Carrington Chandler Eosinophils/100 WBC (Bld) 4.7 % Normal 0.9-7.0 [facility] Comment on above: Performed By: #### C MP #### [facility] [address] [place] [address] Dr. Carrington Chandler Erythrocyte distribution width (RBC) [Ratio] 12.7 % Normal 11.0-15.0 [facility] Comment on above: Performed By: #### C MP #### [facility] [address] [place] [address] Dr. Carrington Chandler Hematocrit (Bld) [Volume fraction] 38.8 % Critically low 42.0-54.0 [facility] Comment on above: Performed By: #### C MP #### [facility] [address] [place] [address] Dr. Carrington Chandler Hemoglobin (Bld) [Mass/Vol] 13.2 g/dL Critically low 14.0-18.0 [facility] Comment on above: Performed By: #### C MP #### [facility] [address] [place] [address] Dr. Carrington Chandler IG # 0.01 10e3/ul Normal 0.00-0.03 [facility] Comment on above: Performed By: #### C MP #### [facility] [address] [place] [address] Dr. Carrington Chandler IG % 0.2 % Normal 0.0-0.5 [facility] Comment on above: Performed By: #### C MP #### [facility] [address] [place] [address] Dr. Carrington Chandler LYMPH # 1.4 103/ul Normal 1.2-3.8 [facility] Comment on above: Performed By: #### C MP #### [facility] [address] [place] [address] Dr. Carrington Chandler Lymphocytes/100 WBC (Bld) 25.2 % Normal 20.5-60.0 [facility] Comment on above: Performed By: #### C MP #### [facility] [address] [place] [address] Dr. Carrington Chandler MANUAL DIFF REQ NO Normal [facility] Comment on above: Performed By: #### C MP #### [facility] [address] [place] [address] Dr. Carrington Chandler MCH (RBC) [Entitic mass] 30.3 pg Normal 25.9-34.0 [facility] Comment on above: Performed By: #### C MP #### [facility] [address] [place] [address] Dr. Carrington Chandler MCHC (RBC) [Mass/Vol] 34.0 g/dL Normal 29.9-35.2 [facility] Comment on above: Performed By: #### C MP #### [facility] [address] [place] [address] [address] Carrington Chandler MCV (RBC) [Entitic vol] 89.2 fL Normal 80.0-94.0 [facility] Comment on above: Performed By: #### C MP #### [facility] [address] [place] [address] [address] Carrington Chandler MONO # 0.6 103/ul Normal 0.3-0.8 [facility] Comment on above: Performed By: #### C MP #### [facility] [address] [place] [address] [address] Carrington Chandler Monocytes/100 WBC (Bld) 10.2 % Normal 1.7-12.0 [facility] Comment on above: Performed By: #### C MP #### [facility] [address] [place] [address] [address] Carrington Chandler NEUT # 3.3 103/ul Normal 1.4-6.5 [facility] Comment on above: Performed By: #### C MP #### [facility] [address] [place] [address] Dr. Carrington Chandler Neutrophils/100 WBC (Bld) 59.2 % Normal 43.0-75.0 [facility] Comment on above: Performed By: #### C MP #### [facility] [address] [place] [address] [address] Carrington Chandler Platelet mean volume (Bld) [Entitic vol] 9.1 fL Critically low 9.5-13.5 [facility] Comment on above: Performed By: #### C MP #### [facility] [address] [place] [address] [address] Carrington Chandler PLT 199 103/ul Normal 150-450 [facility] Comment on above: Performed By: #### C MP #### [facility] [address] [place] [address] Dr. Carrington Chandler RBC 4.35 106/ul Critically low 4.70-6.10 [facility] Comment on above: Performed By: #### C MP #### [facility] [address] [place] [address] Dr. Carrington Chandler WBC 5.5 103/ul Normal 4.0-11.0 [facility] Comment on above: Performed By: #### C MP #### [facility] [address] [place] [address] [address] Carrington Chandler Covid-19 PCR ([facility])on SARS-CoV-2 (COVID-19) RNA CHARLIE+probe Ql (Unsp spec) Not detected Normal NOT DETECTED [facility] Comment on above: Result Comment: When [...] for this test is supported by the [place] of Health and Human Service's declaration that [...] used). Performed By: #### B MP #### [facility] [address] [place] [address] Dr. Carrington Chandler PROF 14(COMP METB)on 022 Albumin [Mass/Vol] 3.8 g/dL Normal 3.4-5.0 [facility] Comment on above: Performed By: #### C MP #### [facility] [address] [place] [address] Dr. Carrington Chandler Albumin/Globulin [Mass ratio] 1.0 {ratio} Normal [facility] Comment on above: Performed By: #### C MP #### [facility] [address] [place] [address] Dr. Carrington Chandler ALP [Catalytic activity/Vol] 69 U/L Normal 46-116 [facility] Comment on above: Performed By: #### C MP #### [facility] [address] [place] [address] [address] Carrington Chandler ALT [Catalytic activity/Vol] 18 U/L Normal 16-63 [facility] Comment on above: Performed By: #### C MP #### [facility] [address] [place] [address] [address] Carrington Chandler Anion gap [Moles/Vol] 13.3 mmol/L Normal [facility] Comment on above: Performed By: #### C MP #### [facility] [address] [place] [address] [address] [place] Chandler AST [Catalytic activity/Vol] 19 U/L Normal 15-37 [facility] Comment on above: Performed By: #### C MP #### [facility] [address] [place] [address] [address] Carrington Chandler Bilirubin [Mass/Vol] 0.3 mg/dL Normal 0.2-1.0 [facility] Comment on above: Performed By: #### C MP #### [facility] [address] [place] [address] [address] Carrington Chandler Calcium [Mass/Vol] 9.0 mg/dL Normal 8.5-10.1 [facility] Comment on above: Performed By: #### C MP #### [facility] [address] [place] [address] [address] Carrington Chandler Chloride [Moles/Vol] 101 mmol/L Normal 98-107 [facility] Comment on above: Performed By: #### C MP #### [facility] [address] [place] [address] [address] Carrington Chandler CO2 [Moles/Vol] 26.7 mmol/L Normal 21.0-32.0 [facility] Comment on above: Performed By: #### C MP #### [facility] [address] [place] [address] [address] Carrington Chandler Creatinine [Mass/Vol] 1.06 mg/dL Normal 0.70-1.30 [facility] Comment on above: Performed By: #### C MP #### [facility] [address] [place] [address] [address] Carrington Chandler EGFR-AF VENEZUELAN >60 Normal >=60 [facility] Comment on above: Performed By: #### C MP #### [facility] [address] [place] [address] [address] Carrington Chandler EGFR-NON AF VENEZUELAN >60 Normal >=60 [facility] Comment on above: Performed By: #### C MP #### [facility] [address] [place] [address] [address] Carrington Chandler Globulin (S) [Mass/Vol] 3.8 g/dL Normal [facility] Comment on above: Performed By: #### C MP #### [facility] [address] [place] [address] Dr. Carrington Chandler Glucose [Mass/Vol] 98 mg/dL Normal 74-106 [facility] Comment on above: Performed By: #### C MP #### [facility] [address] [place] [address] [address] Carrington Chandler Potassium [Moles/Vol] 4.0 mmol/L Normal 3.5-5.1 [facility] Comment on above: Performed By: #### C MP #### [facility] [address] [place] [address] Dr. Carrington Chandler Protein [Mass/Vol] 7.6 g/dL Normal 6.4-8.2 [facility] Comment on above: Performed By: #### C MP #### [facility] [address] [place] [address] [address] Carrington Chandler Sodium [Moles/Vol] 137 mmol/L Normal 136-145 [facility] Comment on above: Performed By: #### C MP #### [facility] [address] [place] [address] [address] Carrington Chandler Urea nitrogen [Mass/Vol] 21.0 mg/dL Critically high 7.0-18.0 [facility] Comment on above: Performed By: #### C MP #### [facility] [address] [place] [address] Dr. Carrington Chandler Urea nitrogen/Creatinine [Mass ratio] 19.8 mg/mg Normal [facility] Comment on above: Performed By: #### C MP #### [facility] [address] [place] [address] Dr. Carrington Chandler XR CHEST 1 Von [...] CYNTHIA VASQUEZ Date: 2022-07-03 21:16 Normal [facility] CBC AUTO DIFFon 02-03-2022 BASO # 0.0 103/ul Normal 0.0-0.1 [facility] Comment on above: Performed By: #### C BC #### [facility] [address] [place] [address] Dr. Carrington Chandler Basophils/100 WBC (Bld) 0.3 % Normal 0.2-2.0 [facility] Comment on above: Performed By: #### C BC #### [facility] [address] [place] [address] Dr. Carrington Chandler EO # 0.1 103/ul Normal 0.0-0.7 [facility] Comment on above: Performed By: #### C BC #### [facility] [address] [place] [address] Dr. Carrington Chandler Eosinophils/100 WBC (Bld) 0.9 % Normal 0.9-7.0 [facility] Comment on above: Performed By: #### C BC #### [facility] [address] [place] [address] Dr. Carrington Chandler Erythrocyte distribution width (RBC) [Ratio] 13.9 % Normal 11.0-15.0 [facility] Comment on above: Performed By: #### C BC #### [facility] [address] [place] [address] Dr. Carrington Chandler Hematocrit (Bld) [Volume fraction] 40.4 % Critically low 42.0-54.0 [facility] Comment on above: Performed By: #### C BC #### [facility] [address] [place] [address] Dr. Carrington Chandler Hemoglobin (Bld) [Mass/Vol] 13.4 g/dL Critically low 14.0-18.0 [facility] Comment on above: Performed By: #### C BC #### [facility] [address] [place] [address] Dr. Carrington Chandler IG # 0.03 10e3/ul Normal 0.00-0.03 [facility] Comment on above: Performed By: #### C BC #### [facility] [address] [place] [address] Dr. Carrington Chandler IG % 0.3 % Normal 0.0-0.5 [facility] Comment on above: Performed By: #### C BC #### [facility] [address] [place] [address] Dr. Carrington Chandler LYMPH # 1.5 103/ul Normal 1.2-3.8 [facility] Comment on above: Performed By: #### C BC #### [facility] [address] [place] [address] Dr. Carrington Chandler Lymphocytes/100 WBC (Bld) 12.3 % Critically low 20.5-60.0 [facility] Comment on above: Performed By: #### C BC #### [facility] [address] [place] [address] Dr. Carrington Chandler MANUAL DIFF REQ NO Normal [facility] Comment on above: Performed By: #### C BC #### [facility] [address] [place] [address] [address] Carrington Chandler MCH (RBC) [Entitic mass] 30.0 pg Normal 25.9-34.0 [facility] Comment on above: Performed By: #### C BC #### [facility] [address] [place] [address] Dr. Carrington Chandler MCHC (RBC) [Mass/Vol] 33.2 g/dL Normal 29.9-35.2 [facility] Comment on above: Performed By: #### C BC #### [facility] [address] [place] [address] Dr. Carrington Chandler MCV (RBC) [Entitic vol] 90.6 fL Normal 80.0-94.0 [facility] Comment on above: Performed By: #### C BC #### [facility] [address] [place] [address] Dr. Carrington Chandler MONO # 1.0 103/ul Critically high 0.3-0.8 [facility] Comment on above: Performed By: #### C BC #### [facility] [address] [place] [place] [address] Dr. Carrington Chandler Monocytes/100 WBC (Bld) 8.5 % Normal 1.7-12.0 [facility] Comment on above: Performed By: #### C BC #### [facility] [address] [place] [address] Dr. Carrington Chandler NEUT # 9.2 103/ul Critically high 1.4-6.5 [facility] Comment on above: Performed By: #### C BC #### [facility] [address] [place] [address] Dr. Carrington Chandler Neutrophils/100 WBC (Bld) 77.7 % Critically high 43.0-75.0 [facility] Comment on above: Performed By: #### C BC #### [facility] [address] [place] [address] Dr. Carrington Chandler Platelet mean volume (Bld) [Entitic vol] 9.5 fL Normal 9.5-13.5 [facility] Comment on above: Performed By: #### C BC #### [facility] [address] [place] [address] Dr. Carrington Chandler PLT 204 103/ul Normal 150-450 [facility] Comment on above: Performed By: #### C BC #### [facility] [address] [address] [address] Carrington Chandler RBC 4.46 106/ul Critically low 4.70-6.10 [facility] Comment on above: Performed By: #### C BC #### [facility] [address] [place] [address] Dr. Carrington Chandler WBC 11.9 103/ul Critically high 4.0-11.0 [facility] Comment on above: Performed By: #### C BC #### [facility] [address] [place] [address] Dr. Carrington Chandler Covid-19 PCR ([facility])on 01-23 SARS-CoV-2 (COVID-19) RNA CHARLIE+probe Ql (Unsp spec) Not detected Normal NOT DETECTED [facility] Comment on above: Result Comment: When [...] for this test is supported by the [employer] Analyst of Health and Human Service's declaration [...] used). Performed By: #### C VDTBH #### [facility] [address] [place] [address] Dr. Carrington Chandler PROF 14(COMP METB)on 022 Albumin [Mass/Vol] 3.7 g/dL Normal 3.4-5.0 [facility] Comment on above: Performed By: #### C MP #### [facility] [address] [place] [address] Dr. Carrington Chandler Albumin/Globulin [Mass ratio] 0.9 {ratio} Normal [facility] Comment on above: Performed By: #### C MP #### [facility] [address] [place] [address] Dr. Carrington Chandler ALP [Catalytic activity/Vol] 62 U/L Normal 46-116 [facility] Comment on above: Performed By: #### C MP #### [facility] [address] [place] [address] Dr. Carrington Chandler ALT [Catalytic activity/Vol] 21 U/L Normal 16-63 [facility] Comment on above: Performed By: #### C MP #### [facility] [address] [place] [address] Dr. Carrington Chandler Anion gap [Moles/Vol] 12.3 mmol/L Normal [facility] Comment on above: Performed By: #### C MP #### [facility] [address] [place] [address] Dr. Carrington Chandler AST [Catalytic activity/Vol] 13 U/L Critically low 15-37 [facility] Comment on above: Performed By: #### C MP #### [facility] [address] [place] [address] Dr. Carrington Chandler Bilirubin [Mass/Vol] 0.5 mg/dL Normal 0.2-1.0 [facility] Comment on above: Performed By: #### C MP #### [facility] [address] [place] [address] Dr. Carrington Chandler Calcium [Mass/Vol] 9.1 mg/dL Normal 8.5-10.1 [facility] Comment on above: Performed By: #### C MP #### [facility] [address] [place] [address] Dr. Carrington Chandler Chloride [Moles/Vol] 102 mmol/L Normal 98-107 [facility] Comment on above: Performed By: #### C MP #### [facility] [address] [place] [address] Dr. Carrington Chandler CO2 [Moles/Vol] 24.9 mmol/L Normal 21.0-32.0 [facility] Comment on above: Performed By: #### C MP #### [facility] [address] [address] [address] Carrington Chandler Creatinine [Mass/Vol] 1.36 mg/dL Critically high 0.70-1.30 [facility] Comment on above: Performed By: #### C MP #### [facility] [address] [place] [address] Dr. Carrington Chandler EGFR-AF VENEZUELAN >60 Normal >=60 [facility] Comment on above: Performed By: #### C MP #### [facility] [address] [place] [address] Dr. Carrington Chandler EGFR-NON AF VENEZUELAN 53 mL/min/1.73m2 Critically low >=60 [facility] Comment on above: Performed By: #### C MP #### [facility] [address] [place] [address] Dr. Carrington Chandler Globulin (S) [Mass/Vol] 3.9 g/dL Normal [facility] Comment on above: Performed By: #### C MP #### [facility] [address] [place] [address] Dr. Carrington Chandler Glucose [Mass/Vol] 138 mg/dL Critically high 74-106 [facility] Comment on above: Performed By: #### C MP #### [facility] [address] [address] [address] Carrington Chandler Potassium [Moles/Vol] 4.2 mmol/L Normal 3.5-5.1 [facility] Comment on above: Performed By: #### C MP #### [facility] [address] [place] [address] Dr. Carrington Chandler Protein [Mass/Vol] 7.6 g/dL Normal 6.4-8.2 [facility] Comment on above: Performed By: #### C MP #### [facility] [address] [address] [address] Carrington Chandler Sodium [Moles/Vol] 135 mmol/L Critically low 136-145 [facility] Comment on above: Performed By: #### C MP #### [facility] [address] [address] [address] Carrington Chandlre Urea nitrogen [Mass/Vol] 24.0 mg/dL Critically high 7.0-18.0 [facility] Comment on above: Performed By: #### C MP #### [facility] [address] [address] [address] Carrington Chandler Urea nitrogen/Creatinine [Mass ratio] 17.6 mg/mg Normal [facility] Comment on above: Performed By: #### C MP #### [facility] [address] [address] [address] Carrington Chandler XR CHEST 1 Von [...] Time Vital Sign Value Performing Clinician Facility 10-31-2024 14:52-0400 Body height 170.2 cm [facility] 14 [facility] 10-31-2024 14:52-0400 Body mass index (BMI) [Ratio] 38.47 kg/m2 [facility] 10-31-2024 14:52-0400 Body temperature 97.9 [degF] [facility] 10-31-2024 14:52-0400 Body weight 111.4 kg [facility] 14 [facility] [employer] [facility] 10-31-2024 14:52-0400 Diastolic blood pressure 76 mm[Hg] [facility] 14 [facility] [employer] [facility] 10-31-2024 14:52-0400 Heart rate 90 /min [facility] 14 [facility] [employer] [facility] 10-31-2024 14:52-0400 Respiratory rate 16 /min [facility] 10-31-2024 14:52-0400 SaO2% (BldA) [Mass fraction] 94 % [facility] 14 [facility] [employer] [facility] 10-31-2024 14:52-0400 Systolic blood pressure 111 mm[Hg] [facility] 14 [facility] [employer] [facility] 09-20-2024 09:17-0500 Body height 167.6 cm Alok Webber DO Work Phone: [facility] 09-20-2024 09:17-0500 Body mass index (BMI) [Ratio] 39.22 kg/m2 Alok Webber DO Work Phone: [facility] 09-20-2024 09:17-0500 Body weight 110.22 kg Alok Webber DO Work Phone: [facility] 09-20-2024 09:17-0500 Diastolic blood pressure 78 mm[Hg] Alok Webber DO Work Phone: [facility] 09-20-2024 09:17-0500 Heart rate 115 /min Alok Webber DO Work Phone: [facility] 09-20-2024 09:17-0500 Systolic blood pressure 124 mm[Hg] Alok Webber DO Work Phone: [facility] 09-14-2024 10:50-0500 Body height 170.2 cm Rom Pierre MD Work Phone: [facility] 09-14-2024 10:50-0500 Body mass index (BMI) [Ratio] 38.53 kg/m2 Rom Pierre MD Work Phone: [facility] 09-14-2024 10:50-0500 Body temperature 97.39 [degF] Rom Pierre MD Work Phone: [facility] 09-14-2024 10:50-0500 Body weight 111.58 kg Rom Pierre MD Work Phone: [facility] 09-14-2024 10:50-0500 Diastolic blood pressure 72 mm[Hg] Rom Pierre MD Work Phone: [facility] 09-14-2024 10:50-0500 Heart rate 96 /min Rom Pierre MD Work Phone: [facility] 09-14-2024 10:50-0500 Respiratory rate 16 /min Rom Pierre MD Work Phone: [facility] 09-14-2024 10:50-0500 SaO2% (BldA) [Mass fraction] 96 % Rom Pierre MD Work Phone: [facility] 09-14-2024 10:50-0500 Systolic blood pressure 126 mm[Hg] Rom Pierre MD Work Phone: [facility] 05-29-2024 15:05-0500 Body height 170.18 cm [facility] 05-29-2024 15:05-0500 Body mass index (BMI) [Ratio] 37.4 kg/m2 [facility] 05-29-2024 15:05-0500 Body weight 108.4 kg [facility] 05-29-2024 15:05-0500 Diastolic blood pressure 69 mm[Hg] [facility] 05-29-2024 15:05-0500 Heart rate 93 /min [facility] 05-29-2024 15:05-0500 SaO2% (BldA) [Mass fraction] 93 % [facility] 05-29-2024 15:05-0500 Systolic blood pressure 124 mm[Hg] [facility] 05-11-2024 14:52-0400 Diastolic blood pressure 72 mm[Hg] [facility] 05-11-2024 14:52-0400 Heart rate 108 /min [facility] 05-11-2024 14:52-0400 SaO2% (BldA) [Mass fraction] 95 % [facility] 05-11-2024 14:52-0400 Systolic blood pressure 118 mm[Hg] [facility] 03-09-2024 10:23-0400 Body height 170.2 cm Rom Pierre MD Work Phone: [facility] 03-09-2024 10:23-0400 Body mass index (BMI) [Ratio] 37.93 kg/m2 Rom Pierre MD Work Phone: [facility] 03-09-2024 10:23-0400 Body weight 109.86 kg Rom Pierre MD Work Phone: [facility] 03-09-2024 10:23-0400 Diastolic blood pressure 86 mm[Hg] Rom Pierre MD Work Phone: [facility] 03-09-2024 10:23-0400 Heart rate 93 /min Rom Pierre MD Work Phone: [facility] 03-09-2024 10:23-0400 SaO2% (BldA) [Mass fraction] 95 % Rom Pierre MD Work Phone: [facility] 03-09-2024 10:23-0400 Systolic blood pressure 148 mm[Hg] Rom Pierre MD Work Phone: [facility] 02-24-2024 14:00-0400 Body height 170.18 cm [facility] 02-24-2024 14:00-0400 Body mass index (BMI) [Ratio] 37.7 kg/m2 [facility] 02-24-2024 14:00-0400 Body weight 109.31 kg [facility] 02-24-2024 14:00-0400 Diastolic blood pressure 63 mm[Hg] [facility] 02-24-2024 14:00-0400 Heart rate 99 /min [facility] 02-24-2024 14:00-0400 Systolic blood pressure 99 mm[Hg] [facility] 01-05-2024 12:56-0400 Body height 170.18 cm [facility] 01-05-2024 12:56-0400 Body mass index (BMI) [Ratio] 38.2 kg/m2 [facility] 01-05-2024 12:56-0400 Body weight 110.78 kg [facility] 01-05-2024 12:56-0400 Diastolic blood pressure 66 mm[Hg] [facility] 01-05-2024 12:56-0400 Heart rate 66 /min [facility] 01-05-2024 12:56-0400 SaO2% (BldA) [Mass fraction] 91 % [facility] 01-05-2024 12:56-0400 Systolic blood pressure 108 mm[Hg] [facility] 12-13-2023 13:44-0400 Body height 171.45 cm [facility] 12-13-2023 13:44-0400 Body mass index (BMI) [Ratio] 37.5 kg/m2 [facility] 12-13-2023 13:44-0400 Body weight 110.22 kg [facility] 12-13-2023 13:44-0400 Diastolic blood pressure 60 mm[Hg] [facility] 12-13-2023 13:44-0400 Heart rate 87 /min [facility] 12-13-2023 13:44-0400 SaO2% (BldA) [Mass fraction] 97 % [facility] 12-13-2023 13:44-0400 Systolic blood pressure 102 mm[Hg] [facility] 11-25-2023 14:56-0400 Body height 2042.16 cm [facility] 11-25-2023 14:56-0400 Body mass index (BMI) [Ratio] 0.2 kg/m2 [facility] 11-25-2023 14:56-0400 Body weight 110.22 kg [facility] 11-25-2023 14:56-0400 Diastolic blood pressure 68 mm[Hg] [facility] 11-25-2023 14:56-0400 Heart rate 71 /min [facility] 11-25-2023 14:56-0400 SaO2% (BldA) [Mass fraction] 93 % [facility] 11-25-2023 14:56-0400 Systolic blood pressure 116 mm[Hg] [facility] 10-26-2023 14:31-0400 Body height 171.45 cm [facility] 10-26-2023 14:31-0400 Body mass index (BMI) [Ratio] 37 kg/m2 [facility] 10-26-2023 14:31-0400 Body weight 108.86 kg [facility] 10-26-2023 14:31-0400 Diastolic blood pressure 65 mm[Hg] [facility] 10-26-2023 14:31-0400 Heart rate 78 /min [facility] 10-26-2023 14:31-0400 SaO2% (BldA) [Mass fraction] 97 % [facility] 10-26-2023 14:31-0400 Systolic blood pressure 103 mm[Hg] [facility] 10-04-2023 15:13-0400 Body height 171.45 cm [facility] 10-04-2023 15:13-0400 Body mass index (BMI) [Ratio] 36.7 kg/m2 [facility] 10-04-2023 15:13-0400 Body weight 108.04 kg [facility] 10-04-2023 15:13-0400 Diastolic blood pressure 63 mm[Hg] [facility] 10-04-2023 15:13-0400 Heart rate 72 /min [facility] 10-04-2023 15:13-0400 SaO2% (BldA) [Mass fraction] 93 % [facility] 10-04-2023 15:13-0400 Systolic blood pressure 95 mm[Hg] [facility] 09-14-2023 09:13-0500 Body height 170.2 cm Alok Webber DO Work Phone: [facility] 09-14-2023 09:13-0500 Body mass index (BMI) [Ratio] 36.81 kg/m2 Alok Webber DO Work Phone: [facility] 09-14-2023 09:13-0500 Body weight 106.59 kg Alok Webber DO Work Phone: [facility] 09-14-2023 09:13-0500 Diastolic blood pressure 70 mm[Hg] Alok Webber DO Work Phone: [facility] 09-14-2023 09:13-0500 Heart rate 72 /min Alok Webber DO Work Phone: [facility] 09-14-2023 09:13-0500 Systolic blood pressure 118 mm[Hg] Alok Webber DO Work Phone: [facility] 08-06-2023 13:30-0500 Body height 171.45 cm Brock Modi Other [facility] 08-06-2023 13:30-0500 Body mass index (BMI) [Ratio] 35.95 kg/m2 Brock Modi Other [facility] [employer] Other 08-06-2023 13:30-0500 Body weight 105.69 kg Brock Modi Other [facility] [employer] Other 08-06-2023 13:30-0500 Body weight 105.68 kg [facility] 08-06-2023 13:30-0500 Diastolic blood pressure 66 mm[Hg] Brock Modi Other [facility] 08-06-2023 13:30-0500 SaO2% (BldA) [Mass fraction] 95 % Brock Modi Other [facility] [employer] Other 08-06-2023 13:30-0500 Systolic blood pressure 108 mm[Hg] Brock Modi Other [facility] 08-05-2023 14:23-0500 Diastolic blood pressure 76 mm[Hg] Christopher Faith MD Work Phone: [facility] [employer] 08-05-2023 14:23-0500 Heart rate 70 /min Christopher Faith MD Work Phone: [facility] [employer] 08-05-2023 14:23-0500 Systolic blood pressure 108 mm[Hg] Chrsitopher Faith MD Work Phone: [facility] [employer] 08-05-2023 14:22-0500 Body height 170.2 cm Christopher Faith MD Work Phone: [facility] [employer] 08-05-2023 14:22-0500 Body mass index (BMI) [Ratio] 36.43 kg/m2 Christopher Faith MD Work Phone: [facility] 08-05-2023 14:22-0500 Body weight 105.51 kg Christopher Faith MD Work Phone: [facility] [employer] 08-05-2023 14:22-0500 Respiratory rate 18 /min Christopher Faith MD Work Phone: [facility] 06-24-2023 11:00-0500 Body height 171.45 cm Brock Modi Other [employer] Other 06-24-2023 11:00-0500 Body mass index (BMI) [Ratio] 34.56 kg/m2 Brock Modi Other [employer] Other 06-24-2023 11:00-0500 Body temperature 98.1 [degF] Brock Modi Other [employer] Other 06-24-2023 11:00-0500 Body weight 101.61 kg Brock Modi Other [employer] Other 06-24-2023 11:00-0500 Diastolic blood pressure 67 mm[Hg] Brock Modi Other [employer] Other 06-24-2023 11:00-0500 SaO2% (BldA) [Mass fraction] 95 % Brock Modi Other [employer] Other 06-24-2023 11:00-0500 Systolic blood pressure 109 mm[Hg] Brock Modi Other [employer] Other 03-16-2023 11:30-0400 Body height 171.45 cm Brock Modi Other [employer] Other 03-16-2023 11:30-0400 Body mass index (BMI) [Ratio] 33.48 kg/m2 Brock Modi Other [employer] Other 03-16-2023 11:30-0400 Body weight 98.43 kg Brock Modi Other [employer] Other 03-16-2023 11:30-0400 Diastolic blood pressure 67 mm[Hg] Brock Modi Other [employer] Other 03-16-2023 11:30-0400 SaO2% (BldA) [Mass fraction] 93 % Brock Modi Other [employer] Other 03-16-2023 11:30-0400 Systolic blood pressure 114 mm[Hg] Brock Modi Other [employer] Other 02-04-2023 13:30-0400 Body height 171.45 cm Brock Modi Other [employer] Other 02-04-2023 13:30-0400 Body mass index (BMI) [Ratio] 33.64 kg/m2 Brock Modi Other [employer] Other 02-04-2023 13:30-0400 Body weight 98.88 kg Brock Modi Other [facility] [employer] Other 02-04-2023 13:30-0400 Diastolic blood pressure 67 mm[Hg] Brock Modi Other [facility] [employer] Other 02-04-2023 13:30-0400 SaO2% (BldA) [Mass fraction] 96 % Brock Modi Other [facility] [employer] Other 02-04-2023 13:30-0400 Systolic blood pressure 117 mm[Hg] Brock Modi Other [facility] [employer] Other 12-24-2022 14:08-0400 Body height 167.64 cm Brock Modi Work Phone: [facility] [employer] DO Work Phone: 12-24-2022 14:08-0400 Body mass index (BMI) [Ratio] 35.02 kg/m2 Brock Modi Work Phone: [facility] [employer] DO Work Phone: 12-24-2022 14:08-0400 Body surface area Derived from formula 2.07 m2 Brock Modi Work Phone: [facility] [employer] 250 DO Work Phone: 12-24-2022 14:08-0400 Body weight 98.43 kg Brock Modi Work Phone: [facility] [employer] 250 DO Work Phone: 12-24-2022 14:08-0400 Diastolic blood pressure 80 mm[Hg] Brock Modi Work Phone: [facility] [employer] 250 DO Work Phone: 12-24-2022 14:08-0400 Heart rate 115 /min Brock Modi Work Phone: [facility] [employer] 250 DO Work Phone: 12-24-2022 14:08-0400 Systolic blood pressure 124 mm[Hg] Brock Modi Work Phone: [facility] [employer] 250 DO Work Phone: 11-27-2022 11:00-0400 Body height 171.45 cm Wagner Marrufo Other [employer] Other 11-27-2022 11:00-0400 Body mass index (BMI) [Ratio] 33.48 kg/m2 Wagner Marrufo Other [employer] Other 11-27-2022 11:00-0400 Body weight 98.43 kg Wagner Marrufo Other [employer] Other 11-12-2022 12:45-0400 Body height 171.45 cm Brock Modi Other [employer] Other 11-12-2022 12:45-0400 Body mass index (BMI) [Ratio] 33.48 kg/m2 Brock Modi Other [employer] Other 11-12-2022 12:45-0400 Body weight 98.43 kg Brock Modi Other [employer] Other 11-12-2022 12:45-0400 Diastolic blood pressure 78 mm[Hg] Brock Modi Other [employer] Other 11-12-2022 12:45-0400 SaO2% (BldA) [Mass fraction] 92 % Brock Modi Other [employer] Other 11-12-2022 12:45-0400 Systolic blood pressure 122 mm[Hg] Brock Modi Other [employer] Other 10-21-2022 15:18-0400 Body height 167.64 cm Brock Modi Work Phone: [facility] 250 DO Work Phone: 10-21-2022 15:18-0400 Body mass index (BMI) [Ratio] 35.51 kg/m2 Brock Modi Work Phone: [facility] 250 DO Work Phone: 10-21-2022 15:18-0400 Body surface area Derived from formula 2.08 m2 Brock Modi Work Phone: [facility] 250 DO Work Phone: 10-21-2022 15:18-0400 Body weight 99.79 kg Brock Modi Work Phone: [facility] [place] 250 DO Work Phone: 10-21-2022 15:18-0400 Diastolic blood pressure 70 mm[Hg] Brock Modi Work Phone: [facility] 250 DO Work Phone: 10-21-2022 15:18-0400 Heart rate 84 /min Brock Modi Work Phone: [facility] 250 DO Work Phone: 10-21-2022 15:18-0400 Systolic blood pressure 126 mm[Hg] Brock Modi Work Phone: [facility] [place] 250 DO Work Phone: 10-15-2022 11:15-0400 Body height 171.45 cm Brock Modi Other [facility] [employer] Other 10-15-2022 11:15-0400 Body mass index (BMI) [Ratio] 33.33 kg/m2 rBock Modi Other [employer] Other 10-15-2022 11:15-0400 Body weight 97.98 kg Brock Modi Other [employer] Other 10-15-2022 11:15-0400 Diastolic blood pressure 84 mm[Hg] Brock Modi Other [employer] Other 10-15-2022 11:15-0400 SaO2% (BldA) [Mass fraction] 94 % Brock Modi Other [employer] Other 10-15-2022 11:15-0400 Systolic blood pressure 122 mm[Hg] Brock Modi Other [employer] Other 10-13-2022 11:57-0400 Body temperature 97.4 [degF] MD Brock Modi Work Phone: [facility] 10-13-2022 11:57-0400 Diastolic blood pressure 85 mm[Hg] MD Brock Modi Work Phone: [facility] 10-13-2022 11:57-0400 Heart rate 107 /min MD Brock Modi Work Phone: [facility] 10-13-2022 11:57-0400 Inhaled oxygen flow rate 2 L/min MD Brock Modi Work Phone: [facility] 10-13-2022 11:57-0400 Respiratory rate 17 /min MD Brock Modi Work Phone: [facility] 10-13-2022 11:57-0400 SaO2% (BldA) [Mass fraction] 97 % MD Brock Modi Work Phone: [facility] 10-13-2022 11:57-0400 Systolic blood pressure 125 mm[Hg] MD Brock Modi Work Phone: [facility] 10-13-2022 04:32-0400 Body weight 97.52 kg MD Brock Modi Work Phone: [facility] 10-10-2022 08:46-0400 65 1 Brock Modi Work Phone: [facility] 250 DO Work Phone: Comment on above: [id number] 10-10-2022 04:57-0400 Body height 170.18 cm MD Brock Modi Work Phone: [facility] 09-09-2022 14:30-0500 Body height 171.45 cm Wagner Marrufo Other [facility] [employer] Other 09-09-2022 14:30-0500 Body mass index (BMI) [Ratio] 34.41 kg/m2 Wagner Marrufo Other [facility] [employer] Other 09-09-2022 14:30-0500 Body weight 101.15 kg Wagner Marrufo Other [facility] [employer] Other 08-13-2022 12:15-0500 Body height 171.45 cm Brock Modi Other [facility] [employer] Other 08-13-2022 12:15-0500 Body mass index (BMI) [Ratio] 34.38 kg/m2 Brock Modi Other [facility] [employer] Other 08-13-2022 12:15-0500 Body weight 101.06 kg Brock Modi Other [employer] Other 08-13-2022 12:15-0500 Diastolic blood pressure 84 mm[Hg] Brock Modi Other [employer] Other 08-13-2022 12:15-0500 SaO2% (BldA) [Mass fraction] 97 % Brock Modi Other [employer] Other 08-13-2022 12:15-0500 Systolic blood pressure 132 mm[Hg] Brock Modi Other [employer] Other 07-30-2022 12:30-0500 Body height 171.45 cm Brock Modi Other [employer] Other 07-30-2022 12:30-0500 Body mass index (BMI) [Ratio] 32.71 kg/m2 Brock Modi Other [employer] Other 07-30-2022 12:30-0500 Body weight 96.16 kg Brock Modi Other [employer] Other 07-30-2022 12:30-0500 Diastolic blood pressure 80 mm[Hg] Brock Modi Other [employer] Other 07-30-2022 12:30-0500 SaO2% (BldA) [Mass fraction] 97 % Brock Modi Other [employer] Other 07-30-2022 12:30-0500 Systolic blood pressure 122 mm[Hg] Brock Modi Other [employer] Other Encounters Encounter Date Encounter Type Care Provider Facility Start: 12-14-2024 End: 12-14-2024 ambulatory [facility] Start: 12-11-2024 End: 12-11-2024 ambulatory [facility] Start: 11-25-2024 End: 11-25-2024 ambulatory Anjana Recio [facility] Work Phone: Start: 11-25-2024 End: 11-25-2024 Departed Referred Anjana Recio MD Work Phone: [facility] Start: 11-16-2024 End: 11-16-2024 Telephone encounter [facility] Start: 11-14-2024 End: 11-15-2024 Evaluation and management of inpatient [facility] Start: 10-31-2024 End: 10-31-2024 Patient encounter procedure [facility] Provider 14 [facility] Comment on above: Infrarenal abdominal aortic aneurysm (AAA) without rupture; Encounter for therapeutic drug monitoring Start: 10-31-2024 End: 10-31-2024 ambulatory [facility] Start: 09-20-2024 End: 09-20-2024 ambulatory [facility] Start: 09-20-2024 End: 09-20-2024 Encounter for preprocedural cardiovascular examination [facility]ulatory Start: 09-20-2024 End: 09-20-2024 Office consultation new/estab patient 80 min Alok Headleydon DO Work Phone: [facility] Comment on above: Preop cardiovascular exam; Atherosclerosis of tribe coronary artery of tribe heart without angina pectoris; Ischemic cardiomyopathy; Past myocardial infarction; Mixed hyperlipidemia; Essential hypertension; Murmur, heart; Moderate chronic obstructive pulmonary disease (Multi); Lung mass; Obesity (BMI 35.0-39.9 without comorbidity); Current smoker Start: 09-20-2024 End: 09-20-2024 Patient encounter status Alok Headleydon DO Work Phone: [facility] Start: 09-14-2024 ambulatory BROCK MODI [facility] Start: 09-14-2024 End: 09-14-2024 Office outpatient visit 25 minutes Rom Pierre MD Work Phone: [facility] Comment on above: Infrarenal abdominal aortic aneurysm (AAA) without rupture (CMS-HCC) (Primary Dx); Cigarette smoker motivated to quit; Bilateral carotid bruits Start: 09-14-2024 End: 09-14-2024 ambulatory [facility] Start: 09-12-2024 End: 09-12-2024 ambulatory [facility] Start: 09-11-2024 End: 09-12-2024 Clinisync Result Encounter Rom Pierre MD Work Phone: [facility] External Department Unsolicited Start: 09-11-2024 End: 09-12-2024 Clinisync Result Encounter Rom Pierre MD Work Phone: [facility] External [facility] Unsolicited Start: 05-29-2024 End: 05-29-2024 ambulatory [facility] Work Phone: Start: 05-29-2024 End: 05-29-2024 Patient encounter procedure [facility] Work Phone: Start: 05-26-2024 Non-patient / Non-visit [facility] Work Phone: Start: 05-11-2024 Non-patient / Non-visit [facility] Physician [facility] Work Phone: Start: 05-08-2024 Non-patient / Non-visit [facility] Work Phone: Start: 05-07-2024 Non-patient / Non-visit [facility] Work Phone: Start: 03-09-2024 End: 03-09-2024 Office outpatient visit 25 minutes Rom Pierre MD Work Phone: [facility] Comment on above: Infrarenal abdominal aortic aneurysm (AAA) without rupture ([facility]-H[facility]) (Primary Dx); Bilateral carotid bruits; Cigarette smoker Start: 03-03-2024 End: 03-03-2024 ambulatory CHRISTOPHER Boothe [facility] Start: 02-24-2024 End: 02-24-2024 ambulatory [facility] Work Phone: Start: 02-24-2024 End: 02-24-2024 Patient encounter procedure [facility] Work Phone: Start: 01-05-2024 End: 01-05-2024 ambulatory [facility] Work Phone: Start: 01-05-2024 End: 01-05-2024 Patient encounter procedure [facility] Work Phone: Start: 12-13-2023 End: 12-13-2023 [facility] Work Phone: Start: 12-13-2023 End: 12-13-2023 Patient encounter procedure [facility] Work Phone: Start: 11-25-2023 End: 11-25-2023 Patient encounter procedure [facility] Work Phone: Start: 10-26-2023 End: 10-26-2023 [facility] Work Phone: Start: 10-26-2023 End: 10-26-2023 Patient encounter procedure [facility] Work Phone: Start: 10-09-2023 Non-patient / Non-visit [facility] Work Phone: Start: 10-04-2023 End: 10-04-2023 Patient encounter procedure [facility] Work Phone: Start: 10-04-2023 Non-patient / Non-visit [facility] Work Phone: Start: 09-14-2023 End: 09-14-2023 Office outpatient visit 15 minutes Alok Webber DO Work Phone: [facility] Comment on above: Atherosclerosis of n ative coronary artery of tribe heart without angina pectoris; Essential hypertension, benign; Mixed hyperlipidemia; Ischemic cardiomyopathy; Past myocardial infarction; Moderate chronic obstructive pulmonary disease (CMS/HCC); Obesity (BMI 35.0-39.9 without comorbidity); Current smoker Start: 09-03-2023 End: 09-03-2023 ambulatory Brock Ly Other [employer] Other Start: 09-03-2023 Telephone encounter Brock Ly [facility] Start: 08-24-2023 Orders Only Kendal Hirschjennifer HUDDLESTONN [facility] Comment on above: Abdominal aortic ane urysm (AAA) without rupture, unspecified part (CMS-HCC) (Primary Dx); Obstructive chronic bronchitis with exacerbation (CMS-HCC); Obesity with body mass index (BMI) of 30.0 to 39.9 Start: 08-06-2023 End: 08-06-2023 ambulatory Brock Modi Other [employer] Other Start: 08-06-2023 Office outpatient vi sit 15 minutes Brock Modi [facility] Start: 08-06-2023 End: 08-06-2023 Patient encounter procedure [facility] Work Phone: Start: 08-05-2023 End: 08-05-2023 ambulatory Brock Ly Other [employer] Other Start: 08-05-2023 Telephone encounter Brock Modi [facility] Start: 08-05-2023 End: 08-05-2023 Office outpatient visit 15 minutes Christopher Faith MD Work Phone: [facility] Comment on above: Abdominal aortic ane urysm (AAA) without rupture, unspecified part (CMS-HCC) (Primary Dx); Obstructive chronic bronchitis with exacerbation (CMS-HCC); Obesity with body mass index (BMI) of 30.0 to 39.9; Chronic obstructive pulmonary disease, unspecified COPD type (CMS-HCC) Start: 07-16-2023 End: 07-16-2023 ambulatory Brock Ly Other [employer] Other Start: 07-16-2023 Telephone encounter Brock Ly [facility] Start: 06-24-2023 End: 06-24-2023 ambulatory Brocklindsay Modi Other [employer] Other Start: 06-24-2023 Office outpatient vi sit 15 minutes Brock Modi [facility] Start: 04-07-[address] Alok Webber Facility: Start: 04-02-2023 End: 04-02-2023 ambulatory Brock Modi Other [employer] Other Start: 04-02-2023 Telephone encounter Brock Modi [facility] Start: 03-19-2023 End: 03-19-2023 ambulatory Brock Modi Other [employer] Other Start: 03-19-2023 Telephone encounter Brock Modi [facility] Start: 03-16-2023 End: 03-16-2023 ambulatory Brock Modi Other [employer] Other Start: 03-16-2023 Office outpatient vi sit 15 minutes Brock Modi [facility] Start: 02-04-2023 End: 02-04-2023 ambulatory Brock Modi Other [employer] Other Start: 02-04-2023 Office outpatient vi sit 15 minutes Brock Modi [facility] Start: 01-29-2023 End: 01-29-2023 ambulatory Viral Yang Other [employer] Other Start: 01-29-2023 Telephone encounter Viral Yang [facility] Start: 01-27-2023 Rx Renewal Brock Modi Work Phone: [facility] 250 DO Work Phone: Start: 01-19-2023 Patient encounter procedure Brock Modi Work Phone: [facility] 250A [place] Work Phone: Start: 01-14-2023 End: 01-14-2023 ambulatory Brock Modi Other [employer] Other Start: 01-14-2023 Telephone encounter Brock Modi [facility] Start: 12-24-2022 Office outpatient vi sit 40 minutes Brock Modi Work Phone: [facility] 250 DO Work Phone: Start: 12-24-[address] Alok Webber Facility: Start: 12-04-2022 End: 12-04-2022 ambulatory Brock Modi Other [employer] [employer] Other Start: 12-04-2022 Telephone encounter Brock Modi [facility] Start: 12-03-2022 End: 12-03-2022 ambulatory Brock Modi Other [employer] Other Start: 12-03-2022 Telephone encounter Brock Modi [facility] Start: 11-27-2022 End: 11-27-2022 ambulatory Wanger Marrufo Other [employer] Other Start: 11-27-2022 Office outpatient vi sit 25 minutes Wagner Marrufo [facility] Start: 11-12-2022 End: 11-12-2022 ambulatory Brock Modi Other [employer] Other Start: 11-12-2022 Office outpatient vi sit 15 minutes Brock Modi [facility] Start: 11-04-2022 ambulatory JANINE Burton ty:H1 Start: 11-03-2022 End: 11-03-2022 ambulatory MD Brock Modi Work Phone: [facility] Work Phone: Start: 11-03-2022 End: 11-03-2022 Patient encounter procedure MD Brock Modi Work Phone: [facility] [place] Work Phone: Start: 11-02-2022 Patient encounter procedure Brock Modi Work Phone: [facility] 250 DO Work Phone: Start: 11-02-2022 ambulatory Janine Cunha Facility:1 [id number] Start: 10-29-2022 Chart Update Brock Modi Work Phone: [facility] 600 DO Work Phone: Start: 10-28-2022 End: 10-28-2022 ambulatory MD Brock Modi Work Phone: [facility] Work Phone: Start: 10-28-2022 End: 10-28-2022 Patient encounter procedure MD Brock Modi Work Phone: [facility] [place] Work Phone: Start: 10-27-2022 End: 10-27-2022 ambulatory Brock Modi Other [employer] Other Start: 10-27-2022 Telephone encounter Brock Modi [facility] Start: 10-21-2022 Transitional care ma daron srvc 14 day discharge Brock Modi Work Phone: [facility] 250 DO Work Phone: Start: 10-21-2022 End: 10-21-2022 ambulatory Janine Cunha [employer] [employer] Other Start: 10-21-2022 Telephone encounter Adi Campos [facility] Start: 10-20-2022 End: 10-20-2022 ambulatory Adi Campos Other [employer] Other Start: 10-20-2022 Office outpatient ne w 45 minutes Adi Campos [facility] Start: 10-15-2022 End: 10-15-2022 ambulatory Brock Modi Other [employer] Other Start: 10-15-2022 Office outpatient vi sit 15 minutes Brock Modi [facility] Start: 10-10-[address] Brock Modi Facility:[id number] Start: 10-10-2022 End: 10-13-2022 Evaluation and management of inpatient MD Brock Modi Work Phone: [facility] [place] [facility] Work Phone: Start: 10-10-2022 End: 10-10-2022 ambulatory COLIN TREADWELL Facility:H1 Start: 09-09-2022 Office outpatient ne w 45 minutes Wagner Niru [facility] Start: 09-09-2022 End: 09-09-2022 ambulatory DO Wagner Marrufo Work Phone: [facility] Work Phone: Start: 09-09-2022 End: 09-09-2022 Patient encounter procedure DO Wagner Marrufo Work Phone: [facility] [place] [facility] Start: 09-07-2022 End: 09-08-2022 ambulatory COLIN TREADWELL Facility:H1 Start: 08-13-2022 End: 08-13-2022 ambulatory Brock Modi Other [employer] Other Start: 08-13-2022 Office outpatient vi sit 15 minutes Brock Modi [facility] Start: 08-10-2022 End: 08-11-[address] BROCK OMDI Facility:H1 Start: 07-30-2022 End: 07-30-2022 ambulatory Brock Modi Other [employer] Other Start: 07-30-2022 Office outpatient vi sit 25 minutes Brock Modi [facility] Start: 07-28-2022 End: 07-28-2022 ambulatory Brock Modi Other [employer] Other Start: 07-28-2022 Telephone encounter Brock Modi [employer] Start: 07-10-2022 End: 07-11-[address] CAR LIGHT Facility:H1 Start: 07-08-2022 End: 07-08-[address] JANELLE LAL . Facility:H1 Start: 07-05-2022 End: 07-05-[address] RUBÉN DALY Facility:H1 Start: 07-03-2022 End: 07-04-[address] ARLIN CUNHA Facility:H1 Start: 02-03-2022 End: 02-03-[address] ARLIN CUNHA Facility:H1 Patient encounter status Brock Modi Work Phone: [facility] 250 DO Work Phone: Procedures Date Procedure Procedure Detail Performing Clinician Start: 11-14-2024 Adult depression scr eening assessment Sera Romero Start: 10-31-2024 Antibody screen [facility] 1 4 Start: 10-31-2024 Blood typing serologic abo Rom Pierre MD Work Phone: Start: 10-31-2024 REPEATED ABORH Rom Pierre MD Work Phone: Start: 10-31-2024 Basic metabolic pane l calcium total Rom Pierre MD Work Phone: Start: 10-31-2024 Urnls dip stick/tabl et rgnt auto w/o microscopy Rom Pierre MD Work Phone: Start: 09-20-2024 Ecg routine ecg w/le ast [...] Treatment Date Care Activity Detail Author Start: 11-14-2025 Depression Screening Depression Screening [facility] Start: 11-14-2025 Tobacco Screening Tobacco Screening [facility] Start: 10-31-2025 Adult BMI Screening Adult BMI Screening [facility] Start: 10-31-2025 Tobacco Screening Tobacco Screening [facility] Start: 09-20-2025 End: 09-20-2025 Patient encounter procedure 09/20/2025 11:30 AM EST Office Visit [facility] [address] [facility] [address] [place] [address] Alok Webber DO [address] [facility] [place] [address] [facility] Start: 09-14-2025 Adult BMI Screening Adult BMI Screening [facility] Start: 09-14-2025 Tobacco Screening Tobacco Screening [facility] Start: 2025 Pneumococcal Vaccine: Pediatrics (0 to 5 Years) and At-Risk Patients (6 to 64 Years) (3 - PPSV23 or PCV20) Pneumococcal Vaccine: Pediatrics (0 to 5 Years) and At-Risk Patients (6 to 64 Years) (3 - PPSV23 or PCV20) [facility] Start: 03-26-2025 Influenza vaccination Influenza Vaccine [facility] Start: 03-09-2025 Adult BMI Screening Adult BMI Screening [facility] Start: 03-09-2025 Tobacco Screening Tobacco Screening [facility] Start: 12-14-2024 End: 12-14-2024 Patient encounter procedure 12/14/2024 11:20 AM EDT Office Visit [facility] [address] [place] [phone] Rom Pierre MD [address] [place] [address] [facility] Start: 12-11-2024 End: 12-11-2024 Patient encounter procedure 12/11/2024 10:[address] [facility] Imaging [address] [place] [id number] Rom Pierre MD [address] [place] [address] [facility] - CT Imaging Start: 11-25-2024 Urine culture [facility] Start: 11-25-2024 Bacteria identified in Urine by Culture Urine Culture [facility] Start: 11-14-2024 End: 11-14-2024 Admission to same day surgery center 11/14/2024 11:30 AM EDT - 11/14/2024 2:30 PM EDT Surgery [address] [place] [phone] Rom Pierre MD [address] [place] [address] ENDOGRAFT BYPASS ABDOMINAL AORTA [89724 (CPT )] [facility] Comment on above: ENDOGRAFT BYPASS ABDOMINAL AORTA [63039 (CPT )] Start: 11-14-2024 End: 11-14-2024 Byp oth/thn vein aortobifemoral ENDOGRAFT BYPASS ABDOMINAL AORTA Infrarenal abdominal aortic aneurysm (AAA) without rupture Encounter for therapeutic drug monitoring 11/14/2024 11:30 AM EDT [facility] Start: 11-14-2024 Subsequent hospital visit by physician 11/14/2024 11:30 AM EDT Hospital Encounter [address] [place] [phone] Rom Pierre MD [address], [address] [address] [facility] Start: 09-20-2024 End: 09-20-2025 Alanine aminotransferase [Enzymatic activity/volume] in Serum or Plasma by With P-5'-P Alanine Aminotransferase Lab Routine Mixed hyperlipidemia Expected: 09/20/2024 (Approximate), Expires: 09/20/2025 [facility] Work Phone: Comment on above: Expected: 09/20/2024 (Approximate), Expi res: 09/20/2025 Start: 09-20-2024 End: 09-20-2025 Aspartate aminotransferase [Enzymatic activity/volume] in Serum or Plasma by With P-5'-P Aspartate Aminotransferase Lab Routine Mixed hyperlipidemia Expected: 09/20/2024 (Approximate), Expires: 09/20/2025 [facility] Work Phone: Comment on above: Expected: 09/20/2024 (Approximate), Expi res: 09/20/2025 Start: 09-20-2024 End: 09-20-2025 C reactive protein [Mass/volume] in Serum or Plasma by High sensitivity method C-Reactive Protein, High Sensitivity Lab Routine Atherosclerosis of tribe coronary artery of tribe heart without angina pectoris Ischemic cardiomyopathy Past myocardial infarction Mixed hyperlipidemia Essential hypertension Expected: 09/20/2024 (Approximate), Expires: 09/20/2025 [facility] Work Phone: Comment on above: Expected: 09/20/2024 (Approximate), Expi res: 09/20/2025 Start: 09-20-2024 End: 09-20-2025 Complete Pulmonary Function Test (Spirometry/DLCO/Lung Volumes) Complete Pulmonary Function Test (Spirometry/DLCO/Lung Volumes) PFT Routine Lung mass Expected: 09/20/2024 (Approximate), Expires: 09/20/[address] [facility] Service Area Work Phone: Comment on above: Expected: 09/20/2024 (Approximate), Expi res: 09/20/2025 Start: 09-20-2024 End: 09-20-2025 Lipid 1996 panel - Serum or Plasma Lipid Panel Lab Routine Mixed hyperlipidemia Expected: 09/20/2024 (Approximate), Expires: 09/20/2025 [facility] Work Phone: Comment on above: Expected: 09/20/2024 (Approximate), Expi res: 09/20/2025 Start: 09-20-2024 End: 09-20-2025 XR Chest 2 Views XR chest 2 views Imaging Routine Lung mass Expected: 09/20/2024 (Approximate), Expires: 09/20/2025 [facility] Work Phone: Comment on above: Expected: 09/20/2024 (Approximate), Expi res: 09/20/2025 Start: 09-20-2024 End: 09-20-2024 Patient encounter procedure 09/20/2024 9:00 AM EST Office Visit [facility] [address] [place] [address] Alok Webber DO [address] [place] [address] [facility] Start: 09-09-2024 End: 09-09-2024 CTA Abdominal vessels and Pelvis vessels W contrast IV CT angiogram abdomen and pelvis Imaging Routine Infrarenal Abdominal Aortic Aneurysm (Aaa) Without Rupture ([facility]-H[facility]) Expected: 09/09/2024 (Approximate), Expires: 09/09/2024 [employer] Work Phone: Comment on above: Expected: 09/09/2024 (Approximate), Expi res: 09/09/2024 Start: 08-05-2024 Adult BMI Screening [facility] Start: 08-05-2024 Tobacco Screening [facility] Start: 03-26-2024 COVID-19 Vaccine ( season) COVID-19 Vaccine ( season) [facility] Start: 03-26-2024 Influenza vaccination [facility] [employer] [facility] Start: 03-09-2024 End: 03-09-2025 Echo complete W/O contrast Echo complete W/O contrast Echocardiography Routine Infrarenal abdominal aortic aneurysm (AAA) without rupture ([facility]-H[facility]) Bilateral carotid bruits Cigarette smoker Expected: 03/09/2024, Expires: 03/09/2025 [facility] Comment on above: Expected: 03/09/2024, Expires: Start: 03-09-2024 End: 03-09-2025 US Carotid arteries - bilateral Vas carotid duplex bilateral Vascular Ultrasound Routine Bilateral carotid bruits Expected: 03/09/2024, Expires: 03/09/2025 [facility] Comment on above: Expected: 03/09/2024, Expires: Start: 02-17-2024 End: 02-17-2024 Patient encounter procedure 02/17/2024 10:10 AM EDT Office Visit [facility] [address] [place] [address] Rom Pierre MD [address] [address] [facility] Start: 09-05-2023 Tobacco Counseling Tobacco Counseling [facility] Start: 08-24-2023 End: 08-24-2024 CTA Abdominal vessels and Pelvis vessels W contrast IV CT angiogram abdomen and pelvis Imaging Routine Abdominal Aortic Aneurysm (Aaa) Without Rupture, Unspecified Part ([facility]) Obstructive chronic bronchitis with exacerbation ([facility]) Obesity with body mass index (BMI) of 30.0 to 39.9 Expected: 08/24/2023, Expires: 08/24/2024 [employer] Work Phone: Comment on above: Expected: 08/24/2023, Expires: Start: 08-22-2023 End: 08-22-2024 CTA Abdominal vessels and Pelvis vessels W contrast IV CT angiogram abdomen and pelvis Imaging Routine Abdominal Aortic Aneurysm (Aaa) Without Rupture, Unspecified Part ([facility]-H[facility]) Obstructive chronic bronchitis with exacerbation (CMS-HCC) Obesity with body mass index (BMI) of 30.0 to 39.9 Chronic obstructive pulmonary disease, unspecified COPD type (CMS-HCC) Expected: 08/22/2023, Expires: 08/22/2024 [facility] Work Phone: Comment on above: Expected: 08/22/2023, Expires: Start: 05-02-2023 Pneumococcal vaccination Pneumococcal Vaccine (3 of 3 - PCV20 or PCV21) [facility] Start: 04-07-2023 FUV, Provider: Alok Webber, Status: Pen, Time: 11:20 AM FUV, Provider: Alok Webber, Status: Pen, Time: 11:20 AM -[facility] 250 DO Work Phone: Start: 03-26-2023 Influenza vaccination [facility] Start: 01-19-2023 FUV, Provider: Alok Webber, Status: Pen, Time: 2:30 PM FUV, Provider: Alok Webber, Status: Pen, Time: 2:30 PM -[facility] 250 DO Work Phone: Start: 11-02-2022 HOLTER 48, Provider: VERONICA LANGLEY PRINCIPAL STATISTICAL PROGRAMMER 1,[id number], Status: Pen, Time: 2:30 PM HOLTER 48, Provider: VERONICA LANGLEY PRINCIPAL STATISTICAL PROGRAMMER 1,[id number], Status: Pen, Time: 2:30 PM -[facility] 250 DO Work Phone: Start: 10-13-2022 [facility] Start: 10-10-2022 Dilation of Coronary Artery, Two Arteries with Three Drug-eluting Intraluminal Devices, Percutaneous Approach Dilation of Coronary Artery, Two Arteries with Three Drug-eluting Intraluminal Devices, Percutaneous Approach [facility] Start: 10-10-2022 Fluoroscopy of Left Heart using Low Osmolar Contrast Fluoroscopy of Left Heart using Low Osmolar Contrast [facility] Start: 10-10-2022 Fluoroscopy of Multiple Coronary Arteries using Low Osmolar Contrast Fluoroscopy of Multiple Coronary Arteries using Low Osmolar Contrast [facility] Start: 10-10-2022 Measurement of Cardiac Sampling and Pressure, Left Heart, Percutaneous Approach Measurement of Cardiac Sampling and Pressure, Left Heart, Percutaneous Approach [facility] Start: 10-10-2022 Hospital admission [facility] Start: 10-10-2022 [facility] Start: 10-10-2022 Hospital admission [facility] Start: 10-10-2022 [facility] Start: 2020 RSV High Risk: (Elderly (60+) or Population) (1 - Risk 60-74 years 1-dose series) RSV High Risk: (Elderly (60+) or Population) (1 - Risk 60-74 years 1-dose series) [facility] Start: 2010 Administration of varicella zoster vaccine Zoster (Shingles) Vaccine (1 of 2) [facility] Start: 2010 Zoster Vaccines (1 of 2) Zoster Vaccines (1 of 2) [facility] Start: 1982 DTaP/Tdap/Td Vaccines (1 - Tdap) DTaP/Tdap/Td Vaccines (1 - Tdap) [facility] Start: 1979 DTaP,Tdap and Td Vaccines (1 - Tdap) DTaP,Tdap and Td Vaccines (1 - Tdap) [facility] Start: 1978 Adult BMI Follow Up Plan Adult BMI Follow Up Plan [facility] Start: 1978 Diabetes mellitus screening Diabetes Screening [facility] Start: 1978 Hepatitis C screening Hepatitis C Screening [facility] Start: 1972 Depression Screening Depression Screening [facility] Start: 1961 MMR Vaccines (1 of 1 - Standard series) MMR Vaccines (1 of 1 - Standard series) [facility] Start: 1960 COVID-19 Vaccine (#1) COVID-19 Vaccine (#1) [facility] Start: 1960 HIV screening HIV Screening [facility] Start: 1960 Lipid panel Lipid Panel [facility] Start: 1960 Screening for malignant neoplasm of colon [facility] Start: 1960 Tobacco Counseling Tobacco Counseling [facility] Start: 1960 Yearly Adult Physical Yearly Adult Physical [facility] End: 08-22-2024 Creatinine includes GFR, serum Creatinine includes GFR, serum Lab Routine Abdominal Aortic Aneurysm (Aaa) Without Rupture, Unspecified Part (Cms-Hcc) Obstructive chronic bronchitis with exacerbation ([facility]) Obesity with body mass index (BMI) of 30.0 to 39.9 Chronic obstructive pulmonary disease, unspecified COPD type ([facility]) 1 Occurrences starting 08/22/2023 until 08/22/2024 [employer] Comment on above: 1 Occurrences starting 08/22/2023 until 08/22/2024 End: 08-24-2024 Creatinine includes GFR, serum Creatinine includes GFR, serum Lab Routine Abdominal Aortic Aneurysm (Aaa) Without Rupture, Unspecified Part ([facility]) Obstructive chronic bronchitis with exacerbation ([facility]) Obesity with body mass index (BMI) of 30.0 to 39.9 1 Occurrences starting 08/24/2023 until 08/24/2024 [employer] Work Phone: Comment on above: 1 Occurrences starting 08/24/2023 until 08/24/2024 End: 03-09-2025 Creatinine includes GFR, serum Creatinine includes GFR, serum Lab Routine Infrarenal abdominal aortic aneurysm (AAA) without rupture ([facility]) 1 Occurrences starting 03/09/2024 until 03/09/2025 [employer] Comment on above: 1 Occurrences starting 03/09/2024 until 03/09/2025 Patient Education Coronary Angio plasty (DC) Coronary Stenting (DC) Angina (DC) Chest Pain (DC) Drug Eluting Stents [facility] Work Phone: Patient referral [facility] Work Phone: US Lower extremity v ein - right [facility] Immunizations Immunization Date Immunization Notes Care Provider Fa cility 05-02-2018 pneumococcal Conjuga te, unspecified formulation; Translations: [Need for prophylactic vaccination against Streptococcus pneumoniae (pneumococcus)] Brock Modi Other [employer] Other 05-02-2018 pneumococcal polysaccharide vaccine, 23 valent Brock Modi Work Phone: [facility] 05-26-2017 pneumococcal conjuga te vaccine, 13 valent Brock Modi Work Phone: [facility] Payers Date Payer Category Payer Self-pay 2022 Medicaid [id number] 2022 Medicaid [id number] 2021 Private Health Insurance [employer] Member Subscriber Plan / Payer (Effective 2021-Present) Name: Hector Gaspar Relation to Subscriber: Self Name: Hcetor Gaspar Payer ID: Not on file Type: Not on file Address: [place] [phone] 2019 Unknown 1960 Unknown [id number] 2.840.1.480202.3.579.2. 593 1960 Unknown [id number] 2.16.840.1.281703.3.579.2. 593 1960 Unknown [id number] 2.16.840.1.382147.3.579.2. 593 1960 Unknown [id number] 2.840.1.755203.3.579.2. 593 1960 Unknown [id number] 2.840.1.312859.3.579.2. 593 1960 Unknown [id number] 2.16.840.1.958869.3.579.2. 593 1960 Unknown [id number] 2.16.840.1.587010.3.579.2. 593 1960 Unknown [id number] 2.16840.1.415667.3.579.2. 593 1960 Unknown [id number] 2.16.840.1.186845.3.579.2. 593 1960 Unknown [id number] 2.16.840.1.802995.3.579.2. 356 1960 Unknown [id number] 2.16.840.1.283103.3.579.2. 356 1960 Unknown [id number] 2.16.840.1.994566.3.579.2. 356 1960 Unknown [id number] 2.16.840.1.967681.3.579.2. 356 1960 Unknown [id number] 2.16.840.1.500085.3.579.2. 356 1960 Unknown [id number] 2.16.840.1.179489.3.579.2. 1244 1960 Unknown [id number] 2.16.840.1.562292.3.579.2. 1286 1960 Unknown [id number] 2.16.840.1.739059.3.579.2. 1286 1960 Unknown [id number] 2.16.840.1.970601.3.579.2. 1286 1960 Unknown [id number] 2.16.840.1.198447.3.579.2. 1286 1960 Unknown [id number] 2.16.840.1.347748.3.579.2. 1286 1960 Unknown [id number] 2.16.840.1.870938.3.579.2. 1286 1960 Unknown [id number] 2.16.840.1.849453.3.579.2. 1286 1960 Unknown [id number] 2.16.840.1.890381.3.579.2. 1286 1960 Unknown [id number] 2.16.840.1.507896.3.579.2. 1286 1959 Unknown [id number] 2.16.840.1.103537.19 Unknown [id number] 2.16.840.1.835734.3.579.2. 531 Social History Date Type Detail Facility Tobacco smoking stat us OKIS Unknown if ever smoked [facility] Work Phone: Start: 1960 Sex Assigned At Male F [facility] Start: 08-06-2023 End: 11-14-2024 Sex Assigned At [facility] [employer] Other Start: 10-10-2022 End: 10-10-2022 Tobacco smoking status NHIS Smoker (finding) [facility] Start: 08-06-2023 End: 11-14-2024 Daily caffeine consumption Daily caffeine consumption -[facility] 250 DO Work Phone: Comment on above: 1/2 gallon coffee da darrion; 5-6 cig daily; 8 cigs daily; Start: 08-08-1991 End: 03-09-2024 Tobacco smoking status OKIS Smokes tobacco daily [facility] [employer] [facility] Start: 08-08-1991 History of tobacco use Cigarette Smo ker [facility] [employer] [facility] Start: 09-14-2023 End: 11-15-2024 Alcohol intake Lifetime non-drinker (finding) [facility] Start: 1960 Sex Assigned At Not on file [facility] [employer] [facility] Start: 09-04-2023 End: 09-20-2024 Exposure to SARS-CoV-2 (event) Not sure [facility] Start: 08-26-2022 End: 03-09-2024 Tobacco use and exposure Smokeless tobacco non-user [facility] [employer] [facility] Within the past 12 months we worried whether our food would run out before we got money to buy more. Never True [facility] Start: 08-26-2022 Tobacco Comment pack and a nathanael f a day pt reports he is really trying to quit 09/04/21 [facility] [employer] [facility] Start: 08-01-2021 End: 11-27-2024 Sex Male (finding) [facility] Has the [employer], [employer], [employer], or water company threatened to shut off services in your home in past 12Mo No [facility] How often to you hav e a drink containing alcohol? Never [facility] Medical Equipment Procedure Code Equipment Code Equipment Origin al Text Equipment Identifier Dates Drug-eluting coronary artery stent, non-bioabsorbable- polymer-coated [id number] FDA Start: 10-10-2022 Drug-eluting coronary artery stent, non-bioabsorbable- polymer-coated [id number] FDA Start: 10-10-2022 Drug-eluting coronary artery stent, non-bioabsorbable- polymer-coated [id number] FDA Start: 10-10-2022 [employer] [facility] [id number] FDA Start: 11-14-2024 Graft Stnt 103mm 14-36mm 20fr Endurant Iis 2 Brch Evas Ntnl - [id number] - [id number] Start: 11-14-2024 Graft Stnt 124mm 20-16mm 16fr [employer]urant Ii 177-197mm - [id number] - [id number] Start: 11-14-2024 Comment on above: Description: RIGHT C OMMON ILIAC Graft Stnt 146mm 16mm 20fr Endurant Ii 2 Brch Evas Aaa - [id number] - [id number] Start: 11-14-2024 Goals Date Patient Goal Desired Activity /State Personal health goal Functional Status Date Assessment Result Facility 10-13-2022 Functional status Patient at Baseline [facility] Work Phone: Mental Status Date Assessment Result Facility 10-13-2022 Cognitive function Cognitive Sta tus Patient at Baseline [facility] Work Phone: Clinical Notes 07-30-2022 to 11-16-2024 Telephone Encounter - Sera Romero - 11/16/2024 10:24 AM EDTTelephone Encounter - Sera Romero - 11/16/2024 10:24 AM ROOPA Palumbo - 10/31/2024 2:30 PM EDTPatient Instructions Note Date & Type Note Facility 11-16-2024 Miscellaneous Notes Pt is s/p Evar on 11-14- called this morning and has a low grade fever. I spoke to Dr Pierre and he wants pt to be seen today by one of our ANNIA's or to be evaluated in the ER-pt states he has no ride to [place] today so he is going to be evaluated at the [place] ER. documented in this encounter [facility] 11-16-2024 Telephone encounter Note Pt is s/p Evar on 11-14- called this morning and has a low grade fever. I spoke to Dr Pierre and he wants pt to be seen today by one of our ANNIA's or to be evaluated in the ER-pt states he has no ride to [place] today so he is going to be evaluated at the [place] ER. [facility] 10-31-2024 History and physical note Images from the original note were not included. PRE-ADMISSION TESTING HISTORY AND PHYSICAL EXAM DATE: 10/31/24 PCP: SEYMOUR HARPER MD HISTORY OF PRESENT ILLNESS: Hector Gaspar Sr., a 64 y.o. White or male, presents to [facility] for a pre-surgical H&P. The patient has been diagnosed with ABDOMINAL AORTIC ANEURYSM . Patient states he was diagnosed with a AAA 4-5 years ago. Patient's most recent CT angio of the abdomen and pelvis 09/11/2024 showed 1. Largely thrombosed infrarenal abdominal aortic aneurysm measuring up to 5.2 cm, not significantly changed when compared to the ultrasound from 07/15/2023. 2. Bilateral common iliac artery ectasia and other findings as above. Patient states he is now down to 10 cigarettes a day; cutting down from 2 packs per day. Patient has some shortness of breath at rest and with exertion. He denies any recent illness, fever, or cough. Anesthesia problems: denies. Latex allergy: denies. Bleeding/ clotting disorders: Plavix and low-dose aspirin Recent hospitalizations: denies. PAST MEDICAL HISTORY: Past Medical History: Diagnosis Date AAA (abdominal aortic aneurysm) Allergic Asthma COPD (chronic obstructive pulmonary disease) ([facility]) Coronary artery disease stent to RCA and CX Fractures rib years ago Hyperlipidemia Hypertension Injury of back Myocardial infarction ([facility]) Pneumonia 2023 Shortness of breath Sleep apnea no cpap PAST SURGICAL HISTORY: Past Surgical History: Procedure Laterality Date APPENDECTOMY CARDIAC CATHETERIZATION stent to cx, rca FAMILY HISTORY: Family History Problem Relation Age of Onset Anesthesia problems Neg Hx SOCIAL HISTORY: The patient reports no history of alcohol use. He reports that he has been smoking cigarettes. He started smoking about 33 years ago. He has a 49.8 pack-year smoking history. He has never used smokeless tobacco. He reports no history of drug use. ALLERGIES: Allergies Allergen Reactions Cipro [Ciprofloxacin Hcl] Penicillins Swelling Pneumococcal Vaccine Nausea And Vomiting MEDICATIONS: Current Outpatient Medications: acetaminophen 325 mg capsule, Take by mouth. (Patient taking differently: Take by mouth Indications: pain. Twice a day), Disp: , Rfl: albuterol (PROVENTIL HFA;VENTOLIN HFA) 90 mcg/actuation inhaler, , Disp: , Rfl: aspirin 81 mg chewable tablet, Chew 1 tablet (81 mg total) and swallow in the morning., Disp: , Rfl: atorvastatin (LIPITOR) 80 mg tablet, Take 1 tablet (80 mg total) by mouth in the morning., Disp: , Rfl: BRILINTA 90 mg tablet, Take 1 tablet (90 mg total) by mouth every 12 (twelve) hours., Disp: , Rfl: clopidogreL (PLAVIX) 75 mg tablet, Take 1 tablet (75 mg total) by mouth in the morning. At night time., Disp: , Rfl: losartan (COZAAR) 50 mg tablet, Take 1 tablet (50 mg total) by mouth in the morning., Disp: , Rfl: metoprolol tartrate (LOPRESSOR) 25 mg tablet, Take 1 tablet (25 mg total) by mouth in the morning and 1 tablet (25 mg total) before bedtime., Disp: , Rfl: nitroglycerin (NITROSTAT) 0.4 MG SL tablet, Place 1 tablet (0.4 mg total) under the tongue every 5 (five) minutes as needed., Disp: , Rfl: REVIEW OF SYSTEMS: Review of Systems Constitutional: Negative. HENT: Negative. Respiratory: Positive for shortness of breath. Asthma, COPD, Right lung mass seen on CT 07/2024 Cardiovascular: Negative for chest pain, palpitations and tachycardia. AAA, CAD- stents, hypertension, hyperlipidemia, history of myocardial infarction Gastrointestinal: Negative. Endocrine: Negative. Genitourinary: Negative. Musculoskeletal: Negative. Skin: Negative. Allergic/Immunologic: Negative. Neurological: Negative. Hematological: Negative. Psychiatric/Behavioral: Negative. VITAL SIGNS: BP 111/76 Pulse 90 Temp 36.6 C (97.9 F) (Oral) Resp 16 Ht 170.2 cm (5' 7 ) Wt 111.4 kg (245 lb 9.5 oz) SpO2 94% BMI 38.47 kg/m PHYSICAL EXAM: Physical Exam Constitutional: Appearance: Normal appearance. HENT: Head: Normocephalic and atraumatic. Nose: Nose normal. Mouth/Throat: Mouth: Mucous membranes are moist. Pharynx: Oropharynx is clear. Eyes: Extraocular Movements: Extraocular movements intact. Conjunctiva/sclera: Conjunctivae normal. Pupils: Pupils are equal, round, and reactive to light. Cardiovascular: Rate and Rhythm: Normal rate and regular rhythm. Heart sounds: Normal heart sounds. Pulmonary: Effort: Pulmonary effort is normal. Breath sounds: Normal breath sounds. Abdominal: General: Bowel sounds are normal. Palpations: Abdomen is soft. Musculoskeletal: Cervical back: Normal range of motion and neck supple. Skin: General: Skin is warm and dry. Neurological: General: No focal deficit present. Mental Status: He is alert and oriented to person, place, and time. PERTINENT TESTING AVAILABLE IN [facility] (WITHIN THE PAST 2 YEARS): EK09/20/2024 Echo: Echo complete W/O contrast Result Date: 09/12/2024 Left Ventricle: Left ventricle is small. There is mild increased wall thickness/hypertrophy no LVOT gradient noted. Systolic function visually appears hyperdynamic with an ejection fraction over 70%. Aortic Valve: There is mild regurgitation. There is no evidence of aortic valve stenosis. Mitral Valve: There is mild annular calcification. There is no regurgitation or stenosis. Right Ventricle: Right ventricular size appears normal. The right ventricular basal diameter is 24.0 mm. Stress test: No results found. Holter: No results found. Cardiac catheterization: No results found. Carotids: Vas carotid duplex bilateral Result Date: 09/12/2024 Right: Plaque with no significant ICA spectral Doppler or color flow disturbances; ICA 104/32 cm/sec. Antegrade vertebral artery flow. Left: Plaque with no significant ICA spectral Doppler or color flow disturbances; ICA 71/27 cm/sec. Antegrade vertebral artery flow. Conclusions: BILATERAL: Plaque without significant stenosis (<50%) of the internal carotid artery. Antegrade vertebral artery flow. Vas carotid duplex bilateral Result Date: 03/15/2024 [place] [address] Ultrasound Report Signed Patient: HECTOR GASPAR MR#: [id number] : 1960 Acct:[id number] Age/Sex: 63 / M ADM Date: 03/14/24 Loc: US Attending Dr: Rom Pierre M.D. Ordering Physician: Rom Pierre M.D. Date of Service: 03/14/24 Procedure(s): US carotid duplex BI Accession Number(s): [id number] cc: Brock Modi M.D.; Rom Pierre M.D. [place] [id number] Patient Name: HECTOR GASPAR MRN: [id number] date: 1960 Sex: M Assigned Patient Location: Current Patient Location: Accession/Order Number: [id number] Exam Date: 03/14/2024 14:01 Report Date: 03/15/2024 10:27 At the request of: ROM PIERRE Procedure: US carotid duplex BI DUPLEX ULTRASOUND EXAMINATION OF THE CAROTID ARTERIES. COMPARISON: None. HISTORY / INDICATIONS: Carotid bruit. TECHNIQUE: Bilateral common carotid arteries, extracranial internal and external carotid arteries are evaluated with driscoll-scale imaging, color Doppler, and spectral analysis according to a standard protocol. ICA-CCA ratios are calculated with artists' booking representative peak-systolic velocities and recorded. Vertebral arteries are evaluated in one segment to evaluate for patency and character of flow. Comparison with previous evaluation is performed when available. Unless otherwise specified, all velocities are measured in cm/sec. Carotid stenosis is reported according to validated velocity parameters, similar to NASCET criteria. FINDINGS: Right Carotid: Mild plaque was noted. Velocity measurements as follows: Internal Carotid Artery 100/43, 64/27, and 62/29. ICA to CCA ratio: 1.6. Left Carotid: Mild plaque was noted. Velocity measurements as follows: Internal Carotid Artery 81/34, 72/28, and 90/27. ICA to CCA ratio: 1.5. Antegrade flow was seen in both vertebral arteries. CONCLUSION: 1. Less than 50% stenosis of the right ICA. 2. Less than 50% stenosis of the left ICA. 3. Vertebral arteries are patent and demonstrate antegrade flow. Electronically authenticated by: Judy CORADO Date: 03/15/2024 10:27 Dictated By: Judy Corado M.D. Signed By: 03/15/24 1030 DD/ 1027 TD/TT: Senior Tax Accountant: Pulmonary function testing: No results found. RECENT LABS: No results found for: WBC , HGB , HCT , PLT , INR , PTT , SODIUM , K , CL , CO2 , CALCIUM , MAGNESIUM , ALKPHOS , ALBUMIN , GLU , HGBA1C , ALT , AST , CREATININE , BUN , GFR , EGFR , TSH , PSA *Please note that labs listed above are the most recent lab values available in [facility] at the time the H&P was signed. ASSESSMENT / DIAGNOSIS: ABDOMINAL AORTIC ANEURYSM PLAN: Hector Gaspar Sr. is scheduled for Endograft Bypass Abdominal Aorta on 11/14/[address] Pierre. Cardiology clearance will be given after the patient has a chest x-ray, pulmonary function test and echo according to cardiology note in media. ROOPA Damon 10/31/24 1535 [employer] Work Phone: 10-31-2024 History and physical note Images from the original note were not included. PRE-ADMISSION TESTING HISTORY AND PHYSICAL EXAM DATE: 10/31/24 PCP: SEYMOUR HARPER MD HISTORY OF PRESENT ILLNESS: Hector Gaspar Sr., a 64 y.o. White or male, presents to [facility] for a pre-surgical H&P. The patient has been diagnosed with ABDOMINAL AORTIC ANEURYSM . Patient states he was diagnosed with a AAA 4-5 years ago. Patient's most recent CT angio of the abdomen and pelvis 09/11/2024 showed 1. Largely thrombosed infrarenal abdominal aortic aneurysm measuring up to 5.2 cm, not significantly changed when compared to the ultrasound from 07/15/2023. 2. Bilateral common iliac artery ectasia and other findings as above. Patient states he is now down to 10 cigarettes a day; cutting down from 2 packs per day. Patient has some shortness of breath at rest and with exertion. He denies any recent illness, fever, or cough. Anesthesia problems: denies. Latex allergy: denies. Bleeding/ clotting disorders: Plavix and low-dose aspirin Recent hospitalizations: denies. PAST MEDICAL HISTORY: Past Medical History: Diagnosis Date AAA (abdominal aortic aneurysm) Allergic Asthma COPD (chronic obstructive pulmonary disease) ([facility]) Coronary artery disease stent to RCA and CX Fractures rib years ago Hyperlipidemia Hypertension Injury of back Myocardial infarction ([facility]) Pneumonia 2023 Shortness of breath Sleep apnea no cpap PAST SURGICAL HISTORY: Past Surgical History: Procedure Laterality Date APPENDECTOMY CARDIAC CATHETERIZATION stent to cx, rca FAMILY HISTORY: Family History Problem Relation Age of Onset Anesthesia problems Neg Hx SOCIAL HISTORY: The patient reports no history of alcohol use. He reports that he has been smoking cigarettes. He started smoking about 33 years ago. He has a 49.8 pack-year smoking history. He has never used smokeless tobacco. He reports no history of drug use. ALLERGIES: Allergies Allergen Reactions Cipro [Ciprofloxacin Hcl] Penicillins Swelling Pneumococcal Vaccine Nausea And Vomiting MEDICATIONS: Current Outpatient Medications: acetaminophen 325 mg capsule, Take by mouth. (Patient taking differently: Take by mouth Indications: pain. Twice a day), Disp: , Rfl: albuterol (PROVENTIL HFA;VENTOLIN HFA) 90 mcg/actuation inhaler, , Disp: , Rfl: aspirin 81 mg chewable tablet, Chew 1 tablet (81 mg total) and swallow in the morning., Disp: , Rfl: atorvastatin (LIPITOR) 80 mg tablet, Take 1 tablet (80 mg total) by mouth in the morning., Disp: , Rfl: BRILINTA 90 mg tablet, Take 1 tablet (90 mg total) by mouth every 12 (twelve) hours., Disp: , Rfl: clopidogreL (PLAVIX) 75 mg tablet, Take 1 tablet (75 mg total) by mouth in the morning. At night time., Disp: , Rfl: losartan (COZAAR) 50 mg tablet, Take 1 tablet (50 mg total) by mouth in the morning., Disp: , Rfl: metoprolol tartrate (LOPRESSOR) 25 mg tablet, Take 1 tablet (25 mg total) by mouth in the morning and 1 tablet (25 mg total) before bedtime., Disp: , Rfl: nitroglycerin (NITROSTAT) 0.4 MG SL tablet, Place 1 tablet (0.4 mg total) under the tongue every 5 (five) minutes as needed., Disp: , Rfl: REVIEW OF SYSTEMS: Review of Systems Constitutional: Negative. HENT: Negative. Respiratory: Positive for shortness of breath. Asthma, COPD, Right lung mass seen on CT 07/2024 Cardiovascular: Negative for chest pain, palpitations and tachycardia. AAA, CAD- stents, hypertension, hyperlipidemia, history of myocardial infarction Gastrointestinal: Negative. Endocrine: Negative. Genitourinary: Negative. Musculoskeletal: Negative. Skin: Negative. Allergic/Immunologic: Negative. Neurological: Negative. Hematological: Negative. Psychiatric/Behavioral: Negative. VITAL SIGNS: BP 111/76 Pulse 90 Temp 36.6 C (97.9 F) (Oral) Resp 16 Ht 170.2 cm (5' 7 ) Wt 111.4 kg (245 lb 9.5 oz) SpO2 94% BMI 38.47 kg/m PHYSICAL EXAM: Physical Exam Constitutional: Appearance: Normal appearance. HENT: Head: Normocephalic and atraumatic. Nose: Nose normal. Mouth/Throat: Mouth: Mucous membranes are moist. Pharynx: Oropharynx is clear. Eyes: Extraocular Movements: Extraocular movements intact. Conjunctiva/sclera: Conjunctivae normal. Pupils: Pupils are equal, round, and reactive to light. Cardiovascular: Rate and Rhythm: Normal rate and regular rhythm. Heart sounds: Normal heart sounds. Pulmonary: Effort: Pulmonary effort is normal. Breath sounds: Normal breath sounds. Abdominal: General: Bowel sounds are normal. Palpations: Abdomen is soft. Musculoskeletal: Cervical back: Normal range of motion and neck supple. Skin: General: Skin is warm and dry. Neurological: General: No focal deficit present. Mental Status: He is alert and oriented to person, place, and time. PERTINENT TESTING AVAILABLE IN [facility] (WITHIN THE PAST 2 YEARS): EK09/20/2024 Echo: Echo complete W/O contrast Result Date: 09/12/2024 Left Ventricle: Left ventricle is small. There is mild increased wall thickness/hypertrophy no LVOT gradient noted. Systolic function visually appears hyperdynamic with an ejection fraction over 70%. Aortic Valve: There is mild regurgitation. There is no evidence of aortic valve stenosis. Mitral Valve: There is mild annular calcification. There is no regurgitation or stenosis. Right Ventricle: Right ventricular size appears normal. The right ventricular basal diameter is 24.0 mm. Stress test: No results found. Holter: No results found. Cardiac catheterization: No results found. Carotids: Vas carotid duplex bilateral Result Date: 09/12/2024 Right: Plaque with no significant ICA spectral Doppler or color flow disturbances; ICA 104/32 cm/sec. Antegrade vertebral artery flow. Left: Plaque with no significant ICA spectral Doppler or color flow disturbances; ICA 71/27 cm/sec. Antegrade vertebral artery flow. Conclusions: BILATERAL: Plaque without significant stenosis (<50%) of the internal carotid artery. Antegrade vertebral artery flow. Vas carotid duplex bilateral Result Date: 03/15/2024 [place] [address] Ultrasound Report Signed Patient: HECTOR GASPAR MR#: [id number] : 1960 Acct:[id number] Age/Sex: 63 / M ADM Date: 03/14/24 Loc: US Attending Dr: Rom Pierre M.D. Ordering Physician: Rom Pierre M.D. Date of Service: 03/14/24 Procedure(s): US carotid duplex BI Accession Number(s): [id number] cc: Brock Modi M.D.; Rom Pierre M.D. [address] [address] Patient Name: HECTOR GASPAR MRN: [id number] date: 1960 Sex: M Assigned Patient Location: [place] Current Patient Location: Accession/Order Number: [id number] Exam Date: 03/14/2024 14:01 Report Date: 03/15/2024 10:27 At the request of: ROM PIERRE Procedure: US carotid duplex BI DUPLEX ULTRASOUND EXAMINATION OF THE CAROTID ARTERIES. COMPARISON: None. HISTORY / INDICATIONS: Carotid bruit. TECHNIQUE: Bilateral common carotid arteries, extracranial internal and external carotid arteries are evaluated with driscoll-scale imaging, color Doppler, and spectral analysis according to a standard protocol. ICA-CCA ratios are calculated with artists' booking representative peak-systolic velocities and recorded. Vertebral arteries are evaluated in one segment to evaluate for patency and character of flow. Comparison with previous evaluation is performed when available. Unless otherwise specified, all velocities are measured in cm/sec. Carotid stenosis is reported according to validated velocity parameters, similar to NASCET criteria. FINDINGS: Right Carotid: Mild plaque was noted. Velocity measurements as follows: Internal Carotid Artery 100/43, 64/27, and 62/29. ICA to CCA ratio: 1.6. Left Carotid: Mild plaque was noted. Velocity measurements as follows: Internal Carotid Artery 81/34, 72/28, and 90/27. ICA to CCA ratio: 1.5. Antegrade flow was seen in both vertebral arteries. CONCLUSION: 1. Less than 50% stenosis of the right ICA. 2. Less than 50% stenosis of the left ICA. 3. Vertebral arteries are patent and demonstrate antegrade flow. Electronically authenticated by: Judy CORADO Date: 03/15/2024 10:27 Dictated By: Judy Corado M.D. Signed By: 03/15/24 1030 DD/ 1027 TD/TT: Senior Tax Accountant: Pulmonary function testing: No results found. RECENT LABS: No results found for: WBC , HGB , HCT , PLT , INR , PTT , SODIUM , K , CL , CO2 , CALCIUM , MAGNESIUM , ALKPHOS , ALBUMIN , GLU , HGBA1C , ALT , AST , CREATININE , BUN , GFR , EGFR , TSH , PSA *Please note that labs listed above are the most recent lab values available in [facility] at the time the H&P was signed. ASSESSMENT / DIAGNOSIS: ABDOMINAL AORTIC ANEURYSM PLAN: Hector Gaspar Sr. is scheduled for Endograft Bypass Abdominal Aorta on 11/14/[address] Pierre. Cardiology clearance will be given after the patient has a chest x-ray, pulmonary function test and echo according to cardiology note in media. Shabnam Otero APRN-SEISMIC PROSPECTING OBSERVER HELPER 10/31/24 3224 documented in this encounter [facility] 10-31-2024 Instructions Valentina Leon RN - 10/31/2024 2:30 PM EDT Your surgery/procedure is scheduled at [facility] on 11/14/2024 at 11:30 am Arrival Time 9:[address] [facility] Address: [address] [place] [address] Park in [address] Parking lot located on [facility]. Report to the Entrance B. Check in at the information desk the surgery. The waiting room located on the second floor. If you have any questions prior to surgery, please call Pre-Admission Clinic at [phone] between 7:30 am and 4:30 pm Wednesday through Wednesday. If you have questions the morning of surgery, please call the Pre-op Department at [phone]. Notify your SURGEON if you develop any illness such as a cold, cough, fever, sore throat, vomiting or are hospitalized between now and your surgery. Medication Instructions (Do not stop your medications without consulting the prescribing physician). Take the following medications the morning of surgery with a sip of water: per Dr Pierre office Diabetic or Weight loss medications: HOLD none LAST DOSE none Take inhalers as prescribed the morning of surgery. Due to the risk associated with these medications. If these medications are not held per instruction below, your surgery is at an increased risk for cancellation. SGLT2 Medications- Hold 3 days prior to surgery: Jardiance, Empagliflozin, Farxiga, Dapagliflozin, Invokana, Canagliflozin, Trijardy, Synjardy GLP-1 Medications (Injection or Pill)- If taken daily hold day of surgery. If taken weekly, hold 1 week prior to surgery: Adlyxin, Byetta, Bydureon, Ozempic, Rybelsus,Trulicity, Victoza, Wegovy, Lixisenatide, Exenatide, Semaglutide, Dulaglutide, Liraglutide GIP/GLP-1(Injection or Pill)- If taken daily hold day of surgery. If taken weekly, hold 1 week prior to surgery: Mounjaro . Blood thinners: Please contact your prescribing physician regarding a stop/hold date for these medications. Medications such as Coumadin, Heparin, Aspirin, Plavix, Eliquis, Pradaxa., Patient to check with Dr Webber for last dose of aspirin and plavix Diabetics: If you take insulin, contact your prescribing doctor for instructions on how to manage this the night before and the morning of surgery. Non-steriodal Anti-Inflammatory Drugs (NSAIDS)- Hold 3 days prior to surgery unless otherwise directed by your surgeon. Follow Dr Pierre instruction Vitamins/Herbal Products: You may continue to take your prescribed vitamins such as potassium, iron, vitamin B, vitamin C, or multivitamin unless specifically instructed by your surgeon to hold. STOP taking all herbal products/teas one week prior to your surgery. Marijuana: Stop marijuana 72 hours prior to surgery, stop CBD oil 48 hours prior to surgery. If you have been given bowel prep instructions by your surgeon, please call the surgeon's office with any questions about these instructions. What do I do the day of Surgery? Age 2 through adult - Stop all solids by midnight, You may have clear liquids up to 2 hours before surgery, unless otherwise instructed by your surgeon. Clear liquids are: water, sports drinks such as Gatorade or G2, or apple juice. You may NOT have: tube feedings, dairy products, alcoholic beverages, orange juice, or any liquids with solids or pulp in it. If applicable, shower again with CHG soap the morning of your surgery. If you received a green plastic bracelet, bring it with you the day of surgery and your nurse will put it on you. In order to help prevent infection post-operatively, you may be asked to use a CHG mouthwash when you arrive to the Pre-op area. Your nurse will provide instruction the morning of. What do I need to do to prepare for surgery? If you will be going home the same day as your surgery, arrange for an adult over [address] Riding in a bus or taxi by yourself is not permitted. You should not smoke or drink alcohol 24 hours before your surgery. Alcohol thins the blood and may cause bleeding problems during surgery. Smoking increases the risk of breathing problems after surgery. Do not use lotions, creams, powders, perfume, make up, cologne or after-shaves day of surgery. Remove ALL jewelry including wedding rings, body piercings (including dermal piercings ,hair extensions that contain metal, nail croatian, make-up, and contact lens. You may brush your teeth the morning of surgery, but do not swallow the water. Wear your dentures and partial plates to the hospital (no adhesive). Shower the night the before. If applicable, use the CHG (chlorhexidine gluconate) soap or wipes. Place clean linens on your bed after showering. Do not allow pets to sleep in your bed What should I bring to the hospital? If you received a green plastic bracelet, bring it with you the day of surgery and your nurse will put it on you. Eyeglass or contact lens case If you will be spending the night, please bring personal care items and leave them in the car until you are taken to your room after surgery. Leave ALL valuables at home. If any of these instructions conflict with those you received from the surgeon, please seek clarification from your surgeon's office. DEEP BREATHING EXERCISES This exercise helps promote good air exchange and helps to prevent pneumonia after surgery. Breathe in slowly and deeply through the nose. Hold your breath for a few seconds and then exhale slowly through the mouth. Repeat this three times and then cough.Coughing helps to clear your lungs. If you have had a surgery with an incision into your abdomen or chest, press gently against your incision with a pillow or a folded blanket when you cough. Please be aware - it may not be rodriguez to cough following some types of surgeries involving the eyes, ears, sinuses and throat. Always follow your doctor's instructions. LEG EXERCISE These exercises help promote good circulation and help to prevent blood clots after surgery. Point your toes to the ceiling and then point them to the wall. Do this slowly about 15-20 times. You may also move your feet in circles. Do the exercise that is most comfortable for you. If you have had surgery involving your shoulder or arm, we recommend you move your fingers. PRACTICING We ask that you begin practicing these exercises before your surgery. After surgery try to do both exercises at least every 2 hours during the day and early evening. Surgical Site Infection Prevention What is a Surgical Site Infection (SSI)? Infection can happen to the area of the body where surgery is done. This is called a surgical site infection (SSI). A SSI does not happen very often. What are some of the things that hospitals are doing to prevent SSIs? Soap and water or alcohol hand rub are used before and after caring for each patient. Special soap is used to clean surgery workers hands and arms just before the surgery. Masks, gowns, gloves and hair covers are worn during the surgery to keep the area clean. Hair in the surgery area may be removed with clippers (not razors). A special soap that kills germs is used to clean the skin at the surgery site. Antibiotics may be given before the surgery starts. What can you do to prevent SSIs? Before surgery: You may be asked to shower or bathe with a special soap that kills germs the night before and the day of surgery. Use the soap as you were told. Place clean sheets on your bed the night before surgery and do not allow your pets in your bed. If you smoke or vape, stop or cut down. This creates a stress response in your body that increases inflammation, constricts blood vessels and deprives your tissues of oxygen. After surgery, this stress response disrupts the travel of oxygen, nutrients, and blood to your surgical site, interfering with the wound healing process. It also decreases the ability of your cells to fight infection. Ask your doctor about ways to quit. If you have high blood sugars or diabetes please talk with your doctor about having healthy blood sugar levels to promote healing. Do not shave near where you will have surgery. Shaving can irritate the skin and make it easier to get and infection. After surgery: Be sure that the doctors and nurses clean their hands before and after touching you. Be sure your family and friends clean their hands before and after visiting you. Do not be afraid to remind them. Always wash your hands before touching your incisional area. * Care for your wound at home as told by your doctor or nurse * Call your doctor right away if you have fever, redness, increased pain, or drainage at the surgery site. Can SSIs be treated? Antibiotics are used to treat SSI. Some patients may need another surgery to treat the infection. The doctor will discuss treatment options with you. Further questions? Contact the doctor, nurse or the Infection Prevention and Control department if you have any questions. PATIENT RIGHTS AND RESPONSIBILITIES As a patient at [facility], you have the right to: Receive medical care and be informed of who is taking care of you Be treated with dignity and respect Have a family member/artists' booking representative of choice and your physician notified of your admission Receive information and actively participate in decisions about your care and treatment Refuse care, treatment and services Decide who may provide your support and speak for you Access faith and spiritual services Participate in ethical issues and questions about your care Receive private and confidential care Have appropriate assessment and management of your pain Know guest visitation restrictions or limitations Have an advance directive Access protective services Consent or refuse to participate in research studies or production or recordings, films or other images Have resolution of your complaints Receive information of hospital charges and payment methods Patient/patient artists' booking representative responsibilities are to: Provide information about health status to facilitate care, treatment and services Follow the treatment, plan, keep appointments and speak up when you do not understand the plan Respect the rights of other patients and healthcare personnel Follow organizational rules and regulations that support quality care and a safe environment Fulfill financial obligations as promptly as possible Bathing Before Surgery- Patients greater than 2 months of age You can help to lower your chance of infection at the site of your surgery by showering or bathing with a special soap called chlorhexidine gluconate (CHG). Germs live on your skin. This special soap will help lower the amount of germs so they do not get into your surgery site. Special points to know: Do not use this soap if you know that you are allergic to CHG. Shower or bathe with CHG the night before and the morning of surgery. Do not shave the area of your body where the surgery will be done within 7 days of surgery. The CHG may make your skin a little dry, but do not use lotion. Steps for Bathing: Wash your hair as usual with your normal shampoo. Rinse your hair and body well after you shampoo to get rid all of the shampoo. Wash gently with the CHG from the neck down, but do not scrub the skin to hard. Be sure to wash the area of your surgery very well. If showering, turn the water off while washing and then turn the water back onto rinse. Do not get CHG in the genital (private) area. Do not get CHG in the eyes, ears, nose or mouth. (If the soap gets into the eyes, flush them immediately with water). Do not wash with regular soap after CHG is used. Pat skin dry with a soft, clean towel. Patient should sleep in freshly laundered night clothes and report for surgery in clean clothes. Place freshly laundered linens on your bed after bathing with wipes or soap. Do not allow pets in your bed Surgical Site Infection Prevention What is a Surgical Site Infection (SSI)? Infection can happen to the area of the body where surgery is done. This is called a surgical site infection (SSI). A SSI does not happen very often, but it is important for the hospital and you to do everything possible to avoid a SSI. What are some of the things that hospitals are doing to prevent SSIs? Soap and water or alcohol hand rub are used before and after caring for each patient. Special soap is used to clean surgery workers hands and arms just before the surgery. Masks, gowns, gloves and hair covers are worn during the surgery to keep the area clean. Hair in the surgery area may be removed with clippers (not razors). A special soap that kills germs is used to clean the skin at the surgery site. Antibiotics may be given before the surgery starts. What can you do to prevent SSIs? Before surgery: You may be asked to shower or bathe with a special soap that kills germs the night before and the day of surgery. Use the soap as you were told. Place clean sheets on your bed the night before surgery and do not allow your pets in your bed. If you smoke or vape, stop or cut down. This creates a stress response in your body that increases inflammation, constricts blood vessels and deprives your tissues of oxygen. After surgery, this stress response disrupts the travel of oxygen, nutrients, and blood to your surgical site, interfering with the wound healing process. It also decreases the ability of your cells to fight infection. Ask your doctor about ways to quit. If you have high blood sugars or diabetes please talk with your doctor about having healthy blood sugar levels to promote healing. Do not shave near where you will have surgery. Shaving can irritate the skin and make it easier to get and infection. After surgery: Be sure that the doctors and nurses clean their hands before and after touching you. Be sure your family and friends clean their hands before and after visiting you. Do not be afraid to remind them. Always wash your hands before touching your incisional area. * Care for your wound at home as told by your doctor or nurse * Call your doctor right away if you have fever, redness, increased pain, or drainage at the surgery site. Can SSIs be treated? Antibiotics are used to treat SSI. Some patients may need another surgery to treat the infection. The doctor will discuss treatment options with you. Further questions? Contact the doctor, nurse or the Infection Prevention and Control department if you have any questions. PATIENT RIGHTS AND RESPONSIBILITIES As a patient at [facility], you have the right to: Receive medical care and be informed of who is taking care of you Be treated with dignity and respect Have a family member/artists' booking representative of choice and your physician notified of your admission Receive information and actively participate in decisions about your care and treatment Refuse care, treatment and services Decide who may provide your support and speak for you Access faith and spiritual services Participate in ethical issues and questions about your care Receive private and confidential care Have appropriate assessment and management of your pain Know guest visitation restrictions or limitations Have an advance directive Access protective services Consent or refuse to participate in research studies or production or recordings, films or other images Have resolution of your complaints Receive information of hospital charges and payment methods Patient/patient artists' booking representative responsibilities are to: Provide information about health status to facilitate care, treatment and services Follow the treatment, plan, keep appointments and speak up when you do not understand the plan Respect the rights of other patients and healthcare personnel Follow organizational rules and regulations that support quality care and a safe environment Fulfill financial obligations as promptly as possible documented in this encounter [facility] 09-20-2024 History of Present illness Narrative Subjective [...] ASHD; patient sustained high risk non-ST elevation [place] in October 10, 2022 with primary revascularization [...] an echocardiogram was performed last week at [place] or [place], read by outside physician, with normal left [...] 1. Preop cardiovascular exam 2. Atherosclerosis of tribe coronary artery of tribe heart without angina pectoris Follow Up In Cardiology 3. Ischemic cardiomyopathy 4. Past myocardial infarction 5. Mixed hyperlipidemia 6. Essential hypertension 7. Murmur, heart 8. Moderate chronic obstructive pulmonary disease (Multi) 9. Lung mass 10. Current smoker 11. Obesity (BMI 35.0-39.9 without comorbidity) Scribe Attestation By signing my name below, IKate LPN, Scribe attest that this documentation has been [...] discussion and plan. documented in this encounter [facility] Work Phone: 09-20-2024 Instructions Kate Cruz LPN [...] be sent through Care Everywhere.Heart Healthy Diet (Polish)documented in this encounter [facility] Work Phone: 09-14-2024 Evaluation + Plan note Associated Problem(s): Bilateral carotid bruits Carotid stenosis mild bilaterally S medical therapy. He is on aspirin statin and Plavix. We will continue those. [employer] 09-14-2024 Miscellaneous Notes Associated Problem(s): Bilateral carotid [...] proceed with repair. documented in this encounter [facility] 09-14-2024 Evaluation + Plan note Associated Problem(s): Cigarette smoker motivated to quit Counseled him for at least 3 minutes he is willing to quit [facility] 09-14-2024 Evaluation + Plan note Associated Problem(s): AAA (abdominal aortic aneurysm) without rupture (CMS-HCC) I discussed with him the finding in the CT scan. Discussed different options and he would like to proceed with repair. [facility] 09-14-2024 History of Present illness Narrative [...] History: Diagnosis Date AAA (abdominal aortic aneurysm) ([facility]) Allergic Past Surgical History: No past surgical [...] List AAA (abdominal aortic aneurysm) without rupture ([facility]) - Primary Current Assessment & [...] seen today for aaa, ct abd[facility]. Diagnoses and all orders for this visit: Infrarenal abdominal aortic aneurysm (AAA) without rupture ([facility]) Cigarette smoker motivated to quit Bilateral carotid bruits Rom Pierre MD, GHANSHYAM, RPVI, FSVS, FACS [facility] This note was created with the assistance of a speech recognition program. While intending to generate a timely document that accurately reflects the content of the visit, no guarantee can be provided that every grammatical or spelling mistake has been or will be identified or corrected. Thank you for your understanding. documented in this encounter [facility] 09-14-2024 Instructions Rom Pierre MD - 09/14/2024 10:40 AM EST Are You Ready To Kick The Habit? Free Tobacco Cessation Resources [facility] Tobacco [facility] Services [facility] Centers provide all employees with free tobacco cessation services that include: Counseling to understand nicotine addiction Education about medications that can help you successfully quit Assistance with developing a plan to quit Call to set up an individual appointment or find out when group classes will be held: [facility]: [phone] [facility]: [phone] [facility]: [phone] [facility]: [phone] Quit Smoking Action Plan and Resources [facility] offers an eight-week, online smoking cessation plan to all [facility] employees, regardless of whether [place] is your medical insurance provider. Go to [email or web address] and click the Health Risk Assessment and Resources link to get started. In the Wkpya1Ppldjw menu, click Action Plans instead of Health Risk Assessment to access the Quit Smoking Action Plan. Additional smoking cessation resources are also available to all [facility] employees on the Odktn2Kutufa web page at www.[employer]/quit smoking. [place] Tobacco Cessation Program If [place] is your medical insurance provider, there are more free resources available to you, including: No copays or deductibles on local tobacco cessation counseling services to help you quit Prescription assistance for tobacco cessation medications to help you quit For details about the tobacco cessation program available to [place] members, go to www.[employer] (Search: Tobacco Cessation Program). [place] Tobacco Quit Line 2-591-SNDN-NOW ( ) is a toll-free, telephonic service that helps [place] residents quit smoking and using tobacco. It is staffed by experts who tailor a quit plan for you and provide you with advice. [place] Tobacco Quit Line 4-659-HNYO-NOW ( ) is a toll-free, telephonic service that helps [place] residents quit smoking and using tobacco. It is staffed by experts who tailor a quit plan for you and provide you with advice. Two weeks of nicotine replacement therapy may be provided at no charge, if needed. Additional Resources These national organizations also offer free information and resources to help you quit tobacco: [place] Cancer Society--www.cancer.org/healthy/ stayawayfromtobacco [place] Heart Association--www.heart.org (Search: Quit Smoking) Centers for Disease Control and Prevention--www.cdc.gov/tobacco [place] Lung Association--www.lungusa.org documented in this encounter [facility] [employer] [facility] 03-09-2024 Evaluation + Plan note Associated Problem(s): Cigarette smoker Counseled on smoking cessation at length. [facility] 03-09-2024 Evaluation + Plan note Associated Problem(s): Bilateral carotid bruits Best medical therapy and smoking cessation.Carotid duplex ultrasound [facility] 03-09-2024 Miscellaneous Notes Associated Problem(s): Cigarette [...] cessation in length. documented in this encounter [facility] 03-09-2024 Evaluation + Plan note Associated Problem(s): AAA (abdominal aortic aneurysm) without rupture (CMS-HCC) 5.2 cm infrarenal abdominal aortic aneurysm. We discussed different options. He would like to repeat his scan in 6 months. Continue to smoke. I counseled him on smoking cessation in length. 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 Diagnoses and all orders for this visit: Infrarenal abdominal aortic aneurysm (AAA) without rupture ([facility]) - CT angiogram abdomen and pelvis; Future [...] Rom Pierre MD, GHANSHYAM, RPVI, FSVS, FACS [facility] This note was created with the assistance of a speech recognition program. While intending to generate a timely document that accurately reflects the content of the visit, no guarantee can be provided that every grammatical or spelling mistake has been or will be identified or corrected. Thank you for your understanding. documented in this encounter [facility] 03-09-2024 Instructions Rom Pierre MD - 03/09/2024 10:20 AM EDT Are You Ready To Kick The Habit? Free Tobacco Cessation Resources [facility] Tobacco Treatment Center Services [facility] Centers provide all employees with free tobacco cessation services that include: Counseling to understand nicotine addiction Education about medications that can help you successfully quit Assistance with developing a plan to quit Call to set up an individual appointment or find out when group classes will be held: [facility]: [phone] [facility]: [phone] [facility]: [phone] [facility]: [phone] Quit Smoking Action Plan and Resources [facility] offers an eight-week, online smoking cessation plan to all [facility] employees, regardless of whether [place] is your medical insurance provider. Go to [email or web address] ness and click the Health Risk Assessment and Resources link to get started. In the Lcars3Acilxp menu, click Action Plans instead of Health Risk Assessment to access the Quit Smoking Action Plan. Additional smoking cessation resources are also available to all [facility] employees on the Lgfzd0Donjkf web page at www.Zyncd.[employer]/quit smoking. [place] Tobacco Cessation Program If [place] is your medical insurance provider, there are more free resources available to you, including: No copays or deductibles on local tobacco cessation counseling services to help you quit Prescription assistance for tobacco cessation medications to help you quit For details about the tobacco cessation program available to [place] members, go to www.Zyncd.Celebr[employer] (Search: Tobacco Cessation Program). [place] Tobacco Quit Line 2-167-COWT-NOW ( ) is a toll-free, telephonic service that helps [place] residents quit smoking and using tobacco. It is staffed by experts who tailor a quit plan for you and provide you with advice. [place] Tobacco Quit Line 1-732-HKTK-NOW ( ) is a toll-free, telephonic service that helps [place] residents quit smoking and using tobacco. It is staffed by experts who tailor a quit plan for you and provide you with advice. Two weeks of nicotine replacement therapy may be provided at no charge, if needed. Additional Resources These national organizations also offer free information and resources to help you quit tobacco: [place] Cancer Society--www.cancer.org/healthy/ stayawayfromtobacco [place] Heart Association--www.heart.org (Search: Quit Smoking) Centers for Disease Control and Prevention--www.cdc.gov/tobacco [place] Lung Association--www.lungusa.org documented in this encounter [employer] 09-14-2023 History of Present illness Narrative Subjective [...] ASHD; patient sustained high risk non-ST elevation W[place] in October 10, 2022 with primary revascularization [...] remains compliant on current DAPT and post WV therapies Recommendations: Discontinue ticagrelor, switch to clopidogrel 75 daily for the next 6 to 12 months, follow-up in 1 year, smoking cessation counseling Review of Systems All other systems reviewed and are negative. Vitals: 02/20/24 0913 BP: 118/70 BP Location: Right arm [...] Disp: , Rfl: Assessment/Plan 1. Atherosclerosis of tribe coronary artery of tribe heart without angina pectoris 2. Essential hypertension, [...] discussion and plan. documented in this encounter [facility] Work Phone: 09-14-2023 Instructions Kate Cruz [...] instructions on exercise. documented in this encounter [facility] Work Phone: 08-06-2023 Evaluation note Encounter Date Diagnosis Assessment Notes Jul, COPD with acute exacerbation (ICD-10 - J44.1) Hector has a zpack and medrol pack with him. Encouraged him to take these meds. States he has an albuterol HFA and albuterol for his nebulizer at home. Jul, Abdominal aortic aneurysm (AAA) without rupture, unspecified part (ICD-10 - I71.40) Discussed followup w Dr. Faith in 6 months with imaging at that time. [employer] Other 01-11-2024 History of Present illness Narrative* Christopher Faith MD - 08/05/2023 11:20 AM EST CHIEF [...] aortic aneurysm (AAA) without rupture, unspecified part ([facility]) - [facility] [place], [place] - CT angiogram abdomen and pelvis; Future - Creatinine includes GFR, serum; Future Obstructive chronic bronchitis with exacerbation ([facility]) - CT angiogram abdomen and pelvis; Future - Creatinine includes GFR, serum; Future Obesity with body mass index (BMI) of 30.0 to 39.9 - CT angiogram abdomen and pelvis; Future - Creatinine includes GFR, serum; Future Chronic obstructive pulmonary disease, unspecified COPD type ([facility]) - CT angiogram abdomen and pelvis; Future - Creatinine includes GFR, serum; Future Patient with infrarenal abdominal aortic aneurysm. His most recent duplex ultrasound shows 5.2 cm and that was in June of 2023. At this point I will see him back in 6 months with a follow-up CT angiogram. [facility]* Encounter Date Diagnosis Assessment Notes Treatment Notes Treatment Clinical Notes Jun, Abdominal aortic aneurysm (AAA) without rupture, unspecified part (ICD-10 - I71.40) [employer] Other 11-30-2023 Evaluation note* Encounter Date Diagnosis Assessment Notes Treatment Notes Treatment Clinical Notes May, Abdominal aortic aneurysm (AAA) without rupture, unspecified part (ICD-10 - I71.40) Pt requests order as he is overdue for recheckUS. May, Bronchitis (ICD-10 - J40) Finish meds and treatment plan ordered by ER recently. Pt understands as he is improving. [employer] Other 08-25-2023 Evaluation note* Encounter Date Diagnosis Assessment Notes Treatment Notes Treatment Clinical Notes Feb, Acute cystitis without hematuria (ICD-10 - N30.00) [employer] Other 08-22-2023 Evaluation note* Encounter Date Diagnosis Assessment Notes Treatment Notes Treatment Clinical Notes Feb, Penile discharge (ICD-10 - R36.9) Pt request STI testing Feb, Dysuria (ICD-10 - R30.0) Rule out UTI based on symptoms. Will call w results. Push fluids. Feb, Chronic obstructive pulmonary disease, unspecified (ICD-10 - J44.9) Clinical diagnosis secondary to 48-rium-vleu history of tobacco abuse. He will need PFTs in the future. Discussed missed appts w Dr. Campos and sleep lab. He states he will not followup there as he doesn't want to do a lung biopsy. His resp symptoms are improved overall. He expresses understanding on the severity of his condition and he chooses not to followup. [employer] Other 07-13-2023 Evaluation note* Encounter Date Diagnosis Assessment Notes Treatment Notes Treatment Clinical Notes Jan, COPD, moderate (ICD-10 - J44.9) Reminded him to keep appt w Dr. Campos on 02/10. Continue home medications. Avoid going outside with there is haze. Jan, Other sleep disorders (ICD-10 - G47.8) Gave number for the [facility] Sleep lab. He missed his last appt as his daughter had COVID. He will call to reschedule. [employer] Other 07-07-2023 Evaluation note* Encounter Date Diagnosis Assessment Notes Treatment Notes Treatment Clinical Notes Jan, Situational anxiety (ICD-10 - F41.8) [employer] Other 05-11-2023 Evaluation note* Encounter Date Diagnosis Assessment Notes Treatment Notes Treatment Clinical Notes November, Situational anxiety (ICD-10 - F41.8) [employer] Other 05-05-2023 Evaluation note* Encounter Date Diagnosis [...] interventions. Tobacco cessation program at [facility] has been recommended and offered as well as the national Quitline 2-410-KQNI-NOW. We have discussed pharmacologic treatment including nicotine replacement therapy which can lead to a positive nicotine test as well as nicotine free medications both of which will need to be managed by their PCP. We have provided handout for the [facility] Tobacco Cessation Program. This discussion was limited to 5 minutes. [employer] Other 04-20-2023 Evaluation note* Encounter Date Diagnosis Assessment Notes Treatment Notes Treatment Clinical Notes Oct, Chronic obstructive pulmonary disease, unspecified COPD type (ICD-10 - J44.9) Will resume inhalers as prescribed. Keep appt w Dr. Campos. Notes frequent dyspnea, agrees to a prednisone course. Oct, INOCENTE (obstructive sleep apnea) (ICD-10 - G47.33) I called [facility]. He has to meet with the sleep specialist before the test is done, even though it was already ordered. I gave him the date of the appt. I also ordered the test. Oct, Coronary artery disease involving tribe heart without angina pectoris, unspecified vessel or lesion type (ICD-10 - I25.10) Continued followup w [facility]. Continue time off work until breathing status is improved. [employer] Other 03-28-2023 Evaluation note* Encounter Date Diagnosis Assessment Notes Treatment Notes Treatment Clinical Notes Sep, Chronic obstructive pulmonary disease, unspecified COPD type (ICD-10 - J44.9) Trelegy samples and training please Sep, Atelectasis of right lung (ICD-10 - J98.11) Please obtain any previous chest CT done at [place] in the past, and have them load onto our PACS Sep, Tobacco use disorder (ICD-10 - F17.200) Sep, Coronary artery disease involving tribe heart without angina pectoris, unspecified vessel or lesion type (ICD-10 - I25.10) [employer] Other 03-23-2023 Evaluation note* Encounter Date Diagnosis Assessment Notes Treatment Notes Treatment Clinical Notes Sep, Coronary artery disease involving tribe coronary artery of tribe heart without angina pectoris (ICD-10 - I25.10) [...] needs a titration study at the least. [employer] Other 03-21-2023 Hospital Discharge instructions Additional Instructions [...] doctor or pharmacist, without first calling the slag worker who implanted the stent. If you require [...] weight lifting, stair steppers, etc. until the slag worker approves these activities. Check with the slag worker on your first follow-up visit. CALL YOUR PHYSICIAN at [phone]: -If bleeding should occur from the catheter insertion site- apply pressure to the site then immediately call us. -Report any fever, redness, drainage, increased swelling, or firmness at the catheter insertion site. Some bruising or slight swelling may be present at the time of discharge. -Should arm or leg become cold, numb, white, or blue, contact the slag worker immediately. -IF you should experience episodes of [...] is recommended. Please call Central Scheduling at [phone] to schedule your appointment.] The attending slag worker or [facility] nurse clinician should provide you with specific instructions regarding activity, diet, medications, and further follow up for you. Follow the medication instructions provided on your discharge. If the dosages and instructions on this sheet differ from the dosage and instructions on the bottle, follow the instructions on the bottle. [facility] is not responsible for incorrect prescription information provided by the patient during their visit. Do not stop your medications without consulting your health care provider. Please take the list with you to your next doctor's appointment.[facility] Work Phone: 1(390) 330-613803-21-2023 Progress note Author Rubén Tatum [facility] October 13, 2022 9:02am Note Date/Time October 13, 2022 9:0 2am [facility] [address] [place] [address] Cardiology Progress Note Signed Patient: Hector Gaspar SR MR#: [id number] : 1960 Acct:[id number] Age/Sex: 62 / M Adm Date: 3 Loc: Room: [address] [place] [address] Type: ADM IN Attending Dr: Barbara Rivero [...] on postNSTEMI/PCI metoprolol tartrate. 5. Follow-up in [facility] heart clinic within 10 days. [...] signed by Rubén Tatum MD> 10/13/22 0902 [facility] Work Phone: 1(557) 112-696903-20-2023 Progress note Author Barbara Rivero [facility] October 12, 2022 2:24pm Note Date/Time October 12, 2022 2:1 2pm [facility] [address] [place] [address] Hospitalist Progress Note Signed Patient: Hector Gaspar SR MR#: [id number] : 1960 Acct:[id number] Age/Sex: 62 / M Adm Date: 3 Loc: Room: [address] [place] [address] Type: ADM IN Attending Dr: Barbara Rivero [...] Albuterol Neb 2.5 Mg/3 Ml Vial.Neb INHALATION 03/17/24 16:54 2.5 mg Q4H PRN Administration Shortness [...] this time. (3) Ventricular tachycardia seen on library monitor: Plan: No further episodes of ventricular [...] signed by Barbara Rivero MD> 10/12/22 1423 [facility] Work Phone: 1(985) 231-611703-20-2023 Progress note Author Rubén Tatum [facility] October 12, 2022 10:00am Note Date/Time October 12, 2022 9:5 9am [facility] [address] [place] [address] Cardiology Progress Note Signed Patient: Hector Gaspar MR#: [id number] : 1960 Acct:[id number] Age/Sex: 62 / M Adm Date: 3 Loc: 4 Room: [address] [place] [address] Type: ADM IN Attending Dr: Barbara Rivero [...] pacing device. (3) Ventricular tachycardia seen on library monitor: Assessment/Problem Details: Stable no further wide-complex [...] signed by Rubén Tatum MD> 10/12/22 1000 [facility] Work Phone: 1(886) 430-858903-19-2023 Progress note Author Barbara Rivero [facility] October 11, 2022 11:24am Note Date/Time October 11, 2022 11: 15am [facility] [address] [place] [address] Hospitalist Progress Note Signed Patient: Hector Gaspar SR MR#: [id number] : 1960 Acct:[id number] Age/Sex: 62 / M Adm Date: 3 Loc: Room: [address] [place] [address] Type: ADM IN Attending Dr: Barbara Rivero [...] smoking cessation. (3) Ventricular tachycardia seen on library monitor: Plan: Patient given potassium and magnesium [...] signed by Barbara Rivero MD> 10/11/22 1124 [facility] Work Phone: 1(749) 920-209803-19-2023 Progress note Author Rubén Tatum [facility] October 11, 2022 9:41am Note Date/Time October 11, 2022 9:3 3am [facility] [address] [place] [address] Cardiology Progress Note Signed Patient: Hector Gaspar MR#: [id number] : 1960 Acct:[id number] Age/Sex: 62 / M Adm Date: 3 Loc: Room: [address] [place] [address] Type: ADM IN Attending Dr: Barbara Rivero [...] % (Auto) 63.8 Lymph % (Auto) 21.8 [place] % (Auto) 10.2 Eos % (Auto) 3.7 Baso % (Auto) 0.5 Nucleat RBC Rel Count 0.1 Neut # (Auto) 4.2 Lymph # (Auto) 1.4 [place] # (Auto) 0.7 Eos # (Auto) 0.2 [...] MPV Neut % (Auto) Lymph % (Auto) [place] % (Auto) Eos % (Auto) Baso % (Auto) Nucleat RBC Rel Count Neut # (Auto) Lymph # (Auto) [place] # (Auto) Eos # (Auto) Baso # [...] AV node (3) Ventricular tachycardia seen on library monitor: Assessment/Problem Details: Not entirely certain that [...] signed by Rubén Tatum MD> 10/11/22 0941 [facility] Work Phone: 1(884) 148-269003-18-2023 Progress note Author Barbara Rivero [facility] October 10, 2022 1:33pm Note Date/Time October 10, 2022 1:3 3pm [facility] [address] [place] [address] Event Note Signed Patient: Hector Gaspar SR MR#: [id number] : 1960 Acct:[id number] Age/Sex: 62 / M Adm Date: 3 Loc: Room: [address] [place] [address] Type: ADM IN Attending Dr: Barbara Rivero [...] <Electronically signed by Barbara Rivero MD> 10/10/221332 [facility] Work Phone: 1([phone]) 518-961803-18-2023 History of Present illness Narrative* Patient presents to the office ambulatory with steady gait. * This is initial in clinic follow-up at [facility]. * October 10, 2022 transferred to [facility] from [facility] d/t NSTEMI. Managed by with uneventful [...] medication regimen. He denies medication side effects. [facility] [address] DO Work Phone: 1(367) 703-670003-18-2023 Procedure [facility]03-18-2023 Procedure [facility]03-18-2023 Consult note Author Rubén Tatum [facility] October 10, 2022 9:54am Note Date/Time October 10, 2022 9:5 1am [facility] [address] [place] [address] Cardiology Consult Note Signed Patient: Hector Gaspar SR MR#: [id number] : 1960 Acct:[id number] Age/Sex: 62 / M Adm Date: 3 Loc: 3T Room: [address] [place] [address] Type: ADM IN Attending Dr: Barbara Rivero MD Copies to: MD Barbara Barry MD Stephen M Tann, MD~ Cardiology HPI History of Present Illness Consult Date: 10/10/22 Reason for Consult: Nausea, non-STEMI HPI: Mr. Gaspar is a 62 year old male with multiple cardiac risk factors but no known prior coronary heart disease who presented to [place] emergency department lastnight complaining of nausea x2 [...] consistent nausea ever since. He presented to [place] emergency department last evening with these complaints. In the ER at [place] ECG showed Q waves in the inferolateral [...] trend upward to 6000 and then greater [id number]. Echocardiogram at bedside this morning shows normal [...] negative unless noted below or in HPI [facility] Vaccinated for COVID-19?: No Medical History Asthma [...] Lymph # (Auto) 1.4 1.4 (1.00-4.8) x10E3/uL Richmond # (Auto) 0.6 0.6 (0.0-0.8) x10E3/uL Eos [...] Dysrhythmias Sinus rhythms and dysrhythmias: sinus rhythm WV, pacemaker, normal Myocardial infarction: inferior WV (old age indeterminate) and lateral WV (acuteor recent) A&P - Cardiology (1) NSTEMI [...] signed by Rubén Tatum MD> 10/10/22 0954 [facility] Work Phone: 1(829) 273-972703-18-2023 History and physical note Author Galo Dent [facility] October 10, 2022 7:28am Note Date/Time October 10, 2022 7:2 8am [facility] [address] [place] [address] Hospitalist H&P Signed Patient: Hector Gaspar SR MR#: [id number] : 1960 Acct:[id number] Age/Sex: 62 / M Adm Date: 3 Loc: Room: [address] [place] [address] Type: ADM IN Attending Dr: Barbara Rivero MD Copies to: MD Barbara Barry MD Mushtaq Mahmood, MD~ HPI DATE OF EXAMINATION: 10/10/22 CHIEF COMPLAINT: Non-ST elevation WV HISTORY OF PRESENT ILLNESS: Patient is a 62-year-old gentleman with history of hypertension, heavy smoking about 1-1/2 pack for 45 years, COPD, strong family history of coronary artery disease, came to us from [place] emergency department last night. Patient presented to [...] The ER physician did talk to the slag worker here in [facility]. Patient was started on heparin drip, nitro patch was applied. He was sent to our hospital. Upon arrival in the [facility] patient complained about headache. Nitropatch was removed. [...] % (Auto) 27.5 % (.) 10/10/22 06:10 Richmond % (Auto) 11.4 % (.) 10/10/22 06:10 Eos % (Auto) 4.4 % (.) 10/10/22 06:10 Baso % (Auto) 0.6 % (.) 10/10/22 06:10 Nucleat RBC Rel Count 0.1 /100 WBC (0-0.5) 10/10/22 06:10 Neut # (Auto) 2.9 x10E3/uL (1.8-7.7) 10/10/22 06:10 Lymph # (Auto) 1.4 x10E3/uL (1.00-4.8) 10/10/22 06:10 Richmond # (Auto) 0.6 x10E3/uL (0.0-0.8) 10/10/22 06:10 [...] heartcath by cardiology today. I have consulted [facility]. He was offered nicotine patch. I have [...] signed by Galo Dent MD> 10/10/22 0728 [facility] Work Phone: 1([phone]) 440-122202-15-2023 Evaluation note* Encounter Date Diagnosis Assessment Notes [...] in office today. Prior medical notes from [place] ED and history have been reviewed. At [...] interventions. Tobacco cessation program at [facility] has been recommended and offered as well as the national Quitline 3-534-GZHQ-NOW. We have discussed pharmacologic treatment including nicotine replacement therapy which can lead to a positive nicotine test as well as nicotine free medications both of which will need to be managed by their PCP. We have provided handout for the [facility] Tobacco Cessation Program. This discussion was limited to 5 minutes. Aug, Other See orders for this visit as documented in the electronic medical record. [employer] Other 01-19-2023 Evaluation note* Encounter Date Diagnosis Assessment Notes Treatment Notes Treatment Clinical Notes Jul, Chronic obstructive pulmonary disease with acute exacerbation (ICD-10 - J44.1) Discussed diagnosis with patient. Medication profile and possible SE reviewed with patient. Take as directed. Keep appt w Dr. Castillo on 08/31. Notify office if not improving or worsening. Patient verbalizes understanding and agrees to treatment plan. [employer] Other 01-05-2023 Evaluation note* Encounter Date Diagnosis Assessment Notes Treatment Notes Treatment Clinical Notes Jul, Chronic obstructive pulmonary disease with acute exacerbation (ICD-10 - J44.1) [employer] Other Discharge summary Author Barbara Rivero [facility] October 13, 2022 2:14pm Note Date/Time October 13, 2022 2:0 9pm [facility] [address] [place] [address] Discharge Summary Signed Patient: Hector Gaspar SR MR#: [id number] : 1960 Acct:[id number] Age/Sex: 62 / M Adm Date: 3 Loc: Room: [address] [place] [address]: Barbara Rivero MD Copies to: [...] transferred from outside facility for non-ST elevated WV. He was started on heparin drip as [...] doctor or pharmacist, without first calling the slag worker who implanted the stent. If you require [...] weight lifting, stair steppers, etc. until the slag worker approves these activities. Check with the slag worker on your first follow-up visit. CALL YOUR PHYSICIAN at [phone]: -If bleeding should occur from the catheter insertion site- apply pressure to the site then immediately call us. -Report any fever, redness, drainage, increased swelling, or firmness at the catheter insertion site. Some bruising or slight swelling may be present at thetime of discharge. -Should arm or leg become cold, numb, white, or blue, contact the slag worker immediately. -IF you should experience episodes of [...] is recommended. Please call Central Scheduling at [phone] to schedule your appointment.] The attending slag worker or [facility] nurse clinician should provide you with specific instructions regarding activity, diet, medications, and further follow up for you. Follow the medication instructions provided on your discharge. If the dosages and instructions on this sheet differ from the dosage and instructions on the bottle, follow the instructions on the bottle. [facility] is not responsible for incorrect prescription information [...] BY MOUTH EVERY DAY Other Ambulatory Orders: [facility] [employer] [facility] polysom procedure (Routine) Timeframe: 1 Week Location: Determined by Patient Ordered By: Barbara Rivero Follow Up: [facility] [Outside] (Left message with [facility] regarding need for [...] signed by Barbara Rivero MD> 10/13/22 1414 [facility] Work Phone: Evaluation noteNo assessment information available [facility] Work Phone: Evaluation noteNo InformationNort [employer] Other Evaluation note* Diagnosis Onset Date Resolution Status COPD (chronic obstructive pulmonary disease) acute Heart block AV complete acut e Hypertension acute Hypoxemia acute NSTEMI (non-ST elevated myocardial infarction) acute Sleep apnea in adult acute Tobacco abuse acute Ventricular tachycardia seen on library monitor acute [facility] Work Phone: Evaluation note* Diagnosis Atherosclerosis of tribe coronary artery of tribe heart without angina pectoris Essential hypertension, benign Mixed hyperlipidemia Ischemic cardiomyopathy Other specified forms of chronic ischemic heart disease Past myocardial infarction Old myocardial infarction Moderate chronic obstructive pulmonary disease (CMS/HCC) Chronic airway obstruction, not elsewhere classified Obesity (BMI 35.0-39.9 without comorbidity) Current smoker documented in this encounter [facility] Work Phone: Evaluation note* Diagnosis Onset Date Resolution Status COPD (chronic obstructive pulmonary disease) acute Situational anxiety acute [facility] Work Phone: Evaluation note* Diagnosis Onset Date Resolution Status COPD (chronic obstructive pulmonary disease) acute Situational anxiety acute Hypertension acute Coronary artery disease invo lving tribe heart without angina pectoris acute Hypertension acute Situational anxiety acute [facility] Work Phone: evaluation note* Diagnosis Onset Date Resolution Status Hypertension acute Coronary artery disease invo lving tribe heart without angina pectoris acute Hypertension acute Situational anxiety acute Right knee pain acute Right leg pain acute [facility] Work Phone: Evaluation note* Diagnosis Onset Date Resolution Status Right knee pain acute Right leg pain acute [facility] Work Phone: evaluation note* Diagnosis Abdominal aortic aneurysm (AAA) without rupture, unspecified part ([facility])- Primary Obstructive chronic bronchitis with exacerbation ([facility]) Obstructive chronic bronchitis with exacerbation Obesity with body mass index (BMI) of 30.0 to 39.9 Chronic obstructive pulmonary disease, unspecified COPD type (CMS-HCC) [facility] Diagnosis Abdominal aortic aneurysm (AAA) without rupture, unspecified part ([facility])- Primary Obstructive chronic bronchitis with exacerbation (CMS-HCC) Obstructive chronic bronchitis with exacerbation Obesity with body mass index (BMI) of 30.0 to 39.9 documented [facility]* Diagnosis Abdominal aortic aneurysm (AAA) without rupture, unspecified part ([facility])- Primary Obstructive chronic bronchitis with exacerbation (CMS-HCC) Obstructive chronic bronchitis with exacerbation Obesity with body mass index (BMI) of 30.0 to 39.9 [facility]* Diagnosis Infrarenal abdominal aortic aneurysm (AAA) without rupture ([facility])- Primary Bilateral carotid bruits Cigarette smoker Tobacco use disorder [facility]* Diagnosis Infrarenal abdominal aortic aneurysm (AAA) without rupture (CMS-HCC)- Primary Bilateral carotid bruits Cigarette smoker Tobacco use disorder Infrarenal abdominal aortic aneurysm (AAA) without rupture ([facility])- Primary Cigarette smoker motivated to quit Bilateral carotid bruits [facility]* Diagnosis Preop cardiovascular exam Pre-operative cardiovascular examination Atherosclerosis of tribe coronary artery of tribe heart without angina pectoris Ischemic cardiomyopathy Other specified forms of chronic ischemic heart disease Past myocardial infarction Old myocardial infarction Mixed hyperlipidemia Essential hypertension Unspecified essential hypertension Murmur, heart Undiagnosed cardiac murmurs Moderate chronic obstructive pulmonary disease (Multi) Chronic airway obstruction, not elsewhere classified Lung mass Swelling, mass, or lump in chest Obesity (BMI 35.0-39.9 without comorbidity) Current smoker documented in this encounter [facility] Work Phone: Evaluation note* Diagnosis Infrarenal abdominal aortic aneurysm (AAA) without rupture- Primary Bilateral carotid bruits Cigarette smoker Tobacco use disorder Infrarenal abdominal aortic aneurysm (AAA) without rupture- Primary Cigarette smoker motivated to quit Bilateral carotid bruits Encounter for therapeutic drug monitoring- Primary AAA (abdominal aortic aneurysm) without rupture Abdominal aneurysm without mention of rupture Infrarenal abdominal aortic aneurysm (AAA) without rupture Encounter for therapeutic drug monitoring Infrarenal abdominal aortic aneurysm (AAA) without rupture Encounter for therapeutic drug monitoring [facility] N[facility]ative - Reported* Type Description [...] History appendectomy 05/02/18 Hospitalization History SEE SURGICAL [employer] Other History general Narrative - Reported* Type [...] 3 Stents 09/2022 Hospitalization History SEE SURGICAL [employer] Other Hisrzrw general Narrative - Reported* Type Description Date [...] Stents 09/2022 Hospitalization History SEE SURGICAL HX [employer] Other History general Narrative - Reported* Type [...] History SEE SURGICAL HX Hospitalization History pneumonia [employer] Other InstructionsNot on filedocumented in this encounter [facility] SystemInstructionsNot on filedocumented in this encounter [facility]ructionsNot on filedocumented in this encounter [facility] SystemInstructionsNot on filedocumented in this encounter [facility] [employer] SystemReason for referral (narrative)* Consultation (Routine) - Authorized Specialty Diagnoses / Procedures Referred By Yang boothe Referred To Contact Cardiology Diagnoses Atherosclerosis of tribe coronary artery of tribe heart without angina pectoris Procedures Follow Up In Cardiology Alok Webber DO [address] [facility], [address] [address] Alok Webber, [address] [facility], [address] [address] Referral ID Status Reason Start Date Expiration Date V isits Requested Visits Authorized [id number] Authorized 09/14/2023 09/13/2024 1 1 [facility] Work Phone: Reason for visit Narrative* Consultation (Routine) - Authorized Specialty Diagnoses / Procedures Referred By Contac t Referred To Contact Cardiology Diagnoses Atherosclerosis of tribe coronary artery of tribe heart without angina pectoris Procedures Follow Up In Cardiology Alok Webber, [address] [facility], [place] [id number] Phone: tel: fax: Alok Webber, [address] [facility], [address] [address] Phone: tel: fax: Referral ID Status Reason Start Date Expiration Date V isits Requested Visits Authorized [id number] Authorized 09/14/2023 09/13/2024 1 1 [facility] Work Phone: Chief Complaint and Reason for Visit Chief Complaint M25.561 Elevated Troponin Reason for Visit COPD (chronic obstru ctive pulmonary disease) Heart block AV complete Hypertension Hypoxemia NSTEMI (non-ST elevated myocardial infarction) Sleep apnea in adult Tobacco abuse Ventricular tachycardia seen on library monitor Chief Complaint M25.561 Elevated Troponin I25.10 I10 E78.2 Reason for Visit COPD (chronic obstru ctive pulmonary disease) Heart block AV complete Hypertension Hypoxemia NSTEMI (non-ST elevated myocardial infarction) Sleep apnea in adult Tobacco abuse Ventricular tachycardia seen on library monitor Chief Complaint M25.561 Elevated Troponin I25.10 I10 E78.2 j98.11 Reason for Visit COPD (chronic obstru ctive pulmonary disease) Heart block AV complete Hypertension Hypoxemia NSTEMI (non-ST elevated myocardial infarction) Sleep apnea in adult Tobacco abuse Ventricular tachycardia seen on library monitor Chief Complaint Tbh Amb Documentation Breathing Issues Dizziness Reason for Visit COPD (chronic obstru ctive pulmonary disease) Situational anxiety Chief Complaint Amb Documentation Breathing Issues Dizziness 1 month follow up pain in right calf Reason for Visit COPD (chronic obstru ctive pulmonary disease) Situational anxiety Hypertension Coronary artery disease involving tribe heart without angina pectoris Hypertension Situational anxiety Chief Complaint Dizziness 1 month follow up pain in right calf right leg swollen and painful Reason for Visit Hypertension Coronary artery disease involving tribe heart without angina pectoris Hypertension Situational anxiety Right knee pain Right leg pain Chief Complaint pain in right calf right leg swollen and painful 3 month follow up Reason for Visit Right knee pain Right leg pain Chief Complaint Amb Documentation CC Adult Risk Stratification 3 month f/u-HIGH RISK Chief Complaint Admit Date Unknown November 25, 2024 3:57pm Family History No Family History Records Found [...] December. 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 * Based on current guidelines and most recent literature, this is an appropriate indication to withdraw antiplatelet therapy and proceed with urgent endobronchial biopsy for diagnostic purposes, notably his Reubens stents that were recently placed have have [...] Infrarenal abdominal aortic aneurysm (AAA) without rupture ([facility]) Bilateral carotid bruits Cigarette smoker Procedures Echo complete W/O contrast Rom Pierre MD [address], [address] [address] Phone: Referral ID Status Reason Start Date Expiration Date V isits Requested Visits Authorized [id number] Pending Review 03/09/2024 03/09/2025 1 1 Specialty Diagnoses / Procedures Referred By Contac t Referred To Contact Diagnoses Bilateral carotid bruits Procedures Vas carotid duplex bilateral Rom Pierre MD [address], [address] [address] Phone: Referral ID Status Reason Start Date Expiration Date V isits Requested Visits Authorized [id number] Pending Review 03/09/2024 03/09/2025 1 1 Specialty Diagnoses / Procedures Referred By Contac t Referred To Contact Radiology Diagnoses Infrarenal abdominal aortic aneurysm (AAA) without rupture ([facility]) Procedures CT angiogram abdomen and pelvis Rom Pierre MD [address], [address] [address] Phone: Referral ID Status Reason Start Date Expiration Date V isits Requested Visits Authorized [id number] Pending Review 03/09/2024 03/09/2025 1 1 Specialty Diagnoses / Procedures Referred By Contac t Referred To Contact Radiology Diagnoses Abdominal aortic aneurysm (AAA) without rupture, unspecified part (CMS-HCC) Obstructive chronic bronchitis with exacerbation (CMS-HCC) Obesity with body mass index (BMI) of 30.0 to 39.9 Chronic obstructive pulmonary disease, unspecified COPD type ([facility]) Procedures CT angiogram abdomen and pelvis Christopher Faith MD [address], [address] [address] Referral ID Status Reason Start Date Expiration Date V isits Requested Visits Authorized [id number] Pending Review 08/22/2023 08/21/2024 1 1 Reason *FU 07/28 5cm AAA - report scanned. Diagnosis 1 Abdominal aortic ane urysm (AAA) without rupture, unspecified part (I71.40) Referral Organization [facility] sunil Referring Provider First Name Brock Referring Provider Last Name Ly Referring Provider Specialty [facility] Referred Organization [facility] Referred Provider Christopher Faith Referred Address [address], [place],[address] Referred Provider Specialty Vascular Mir michelle Referral Priority Routine General Notes Helen Mendez 09:16:43 AM >received today, attachments made, ntoes locked, referral faxed Clinical Notes p: [phone] f: [id number] Additional Source Comments Care Teams (unrecognized sec [...] End: December 13, 2023 Brenda Jolley APRN [employer]-C Attending Provider Act carol Start: December 13, [...] Active Adi Campos MD Attending Provider Active [facility] Nurse Relationship Specialty Start Date End Date Brock Modi MD PCP - General 10/10/22 Team Status: Inactive Member Role Status Dates Brock Modi MD Attending Provider Active St art: August 06, 2023 End: August 06, 2023 [facility] Nurse Relationship Specialty Start Date End Date Brock Modi MD [address] [place] [address] PCP - General Family Medicine 09/03/21 [facility] Nurse Relationship Specialty Start Date End Date Brock Modi MD [address] [place] [address] PCP - General Family Medicine 09/03/21 [facility] Nurse Relationship Specialty Start Date End Date Brock Modi MD [address] [place] [address] PCP - General Family Medicine 09/03/21 [facility] Nurse Relationship Specialty Start Date End Date Brock Modi MD [address] [place] [address] PCP - General Family Medicine 09/03/21 [facility] Nurse Relationship Specialty Start Date End Date Seymour Harper MD [address] [place] [address], [place] [address] PCP - General Family Medicine 09/12/24 [facility] Nurse Relationship Specialty [place] [address] [place] [address], [place] [address] PCP - General Family Medicine 09/20/24 [facility] Nurse Relationship Specialty Start [place] [address] [place] [address], [place] [address] PCP - General Family Medicine 09/12/24 [facility] Nurse Relationship Specialty Start Date End Date Seymour Harper MD [address] [place] [address] PCP - General Family Medicine 09/12/24 Team Status: Inactive Member Role Status Dates Anjana Recio MD Attending Provider Active Sta rt: November 25, 2024 End: November 25, 2024 Goals (unrecognized section and content) Goals may [...] this encounterNot on filedocumented as of this encounterGoals may be documented in an alternate section REASON FOR VISIT (unrecogniz ed section and content) Reason Comments AAA, CT abd[facility]pelvis at [facility], carotids Prom edica Reason Comments Abdominal aortic aneurysm (AAA) without rupture, unspecifie 6 month follow up with testing CT angiog mic abd/pel and 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 Te sting was in 08/2022. Specialty Diagnoses / Procedures Referred By Yang boothe Referred To Contact Vascular Surgery Diagnoses Abdominal aortic aneurysm (AAA) without rupture, unspecified part ([facility]) Christopher Faith MD [address] [address] Christopher Faith MD [address] [place] [address] Referral ID Status Reason Start Date Expiration Date Visits Requested Visits Authorized [id number] Pending Review Specialty Services Required 3 07/21/2024 1 1 Reason Comments Follow-up 6m US resultTBHsleep apnea discussionrefillAlprazolamRecheck Right Knee* Reason for Visit: * Holter Monitor: * HECTOR is here for the application of a 48 hour Holter monitor. * Ordering Physician: JANINE CUNHA * Diagnosis: CAD SINUS PAUSE * [facility] equipment agreement signed. HECTOR understands monitor is to be returned on: 11-03-22 * Monitor number [id number] applied. * Holter monitor returned and downloaded. messagePulmonary Office NotesRef by Dr. Brock Modi for [facility] - HAD HEART ATTACKRight Knee PainCheck Upnot feeling back to normal- discussion (unrecognized sect ion and content) No Status Records FoundNo Status Records FoundNo Status Records FoundNo Status Records FoundNo Status Records FoundNo Status Records FoundNo Status Records FoundNo Status Records Found INFORMATION SOURCE (unrecogn ized section and content) DATE CREATED AUTHOR 11/07/2022 [facility] DATE CREATED AUTHOR AUTHOR'S ORGANIZ ATION 01/02/2023 [employer] DATE CREATED AUTHOR AUTHOR'S ORGANIZ ATION 04/09/2023 [facility] DATE CREATED AUTHOR AUTHOR'S ORGANIZ ATION 09/22/2024 [facility] DATE CREATED AUTHOR AUTHOR'S ORGANIZ ATION 11/15/2024 [facility] DATE CREATED AUTHOR AUTHOR'S ORGANIZ ATION 11/30/2024 [facility] DATE CREATED AUTHOR AUTHOR'S ORGANIZ ATION 12/19/2024 [facility] DATE CREATED AUTHOR AUTHOR'S ORGANIZ ATION 12/21/2024 [facility] Ambulatory [employer] FOR RECORDS PERTAINING TO PATIENTS [...] BE BASED ON THE PRIMARY CLINICAL RECORDS. [facility] [employer] provides no warranty or guarantee of the accuracy or completeness of information in this document.
[2025-01-20 13:00] VITALS: BP 138/71; PULSE 71; TEMP 36.7; O2SAT 98; BMI 28.3
--- NOTE | 2025-01-20 13:58 | ED.GENADUL1 ---
HPI HPI - General Adult General Chief complaint: Skin/Abscess/Foreign Body Stated complaint: FLANK PAIN Time Seen by Provider: 01/20/25 13:39 Mode of arrival: walk-in Limitations: no limitations History of Present Illness HPI narrative: 64-year-old male presents to the emergency department for evaluation of his left groin. He felt a bump at the site of his left femoral artery puncture from his AAA repair. No drainage or bleeding. The surgery was done more than a month ago. He noticed it today when he was in the shower. Related Data Home Medications ?Medication ?Instructions ?Recorded ?Confirmed aspirin 81 mg chewable tablet 1 tab PO DAILY 01/24/23 11/25/24 atorvastatin 80 mg tablet 80 mg PO QPM 01/24/23 11/25/24 clopidogrel 75 mg tablet (Plavix) 75 mg PO DAILY 10/09/23 11/25/24 metoprolol tartrate 25 mg tablet 25 mg PO BID 11/16/24 11/25/24 nitroglycerin 0.4 mg sublingual 0.4 mg sublingual Q5M 11/16/24 11/25/24 tablet phenazopyridine 200 mg tablet 200 mg PO TIDWMEAL 11/25/24 11/25/24 valsartan 40 mg tablet 40 mg PO DAILY 11/25/24 11/25/24 Previous Rx's ?Medication ?Instructions ?Recorded albuterol sulfate 90 mcg/actuation 2 inh inhalation Q4H PRN shortness 08/10/24 aerosol inhaler of breath or wheezing #8.5 grams sulfamethoxazole 800 1 tab PO BID 7 days #14 tabs 11/25/24 mg-trimethoprim 160 mg tablet (Bactrim DS) Allergies Allergy/AdvReac Type Severity Reaction Status Date / Time Penicillins Allergy Severe Hives Verified 11/25/24 14:53 pneumonia shot AdvReac Intermediate Unknown Uncoded 11/25/24 14:53 Review of Systems ROS Narrative A ten point review of systems is negative except as noted above. [facility] Medical History (Updated 01/20/25 @ 13:57 by Frank Ashford MD) Hypercholesterolemia ?E78.00 - Pure hypercholesterolemia, unspecified (ICD-10) COPD (chronic obstructive pulmonary disease) ?J44.9 - Chronic obstructive pulmonary disease, unspecified (ICD-10) Social History Smoking status: Current every day smoker Little interest or pleasure in doing things: not at all Feeling down, depressed, or hopeless: not at all Exam Narrative Exam Narrative: Nurses note and vital signs reviewed and patient is not hypoxic. General: The patient appears well and in no apparent distress. Patient is resting comfortably on cart. Skin: Warm, dry, no pallor noted. There is no rash noted. Head: Normocephalic, atraumatic Eye: Normal conjunctiva, no drainage Ears, Nose, Mouth, and Throat: oral mucosa is moist. Nares patent. Cardiovascular: Regular Rate and Rhythm Respiratory: Patient is in no distress, no accessory muscle use, lungs are clear to auscultation, no wheezing, rales or rhonchi Back: non-tender GI: Soft and nontender Musculoskeletal: The left inguinal area is examined. There is no erythema or open area. The site in question has a small healing puncture wound with some palpable scar tissue underneath. There is no pulsatile mass or abscess or open area or drainage or bleeding. Neurological: A&O, normal speech Psychiatric: Cooperative Constitutional Vital Signs, click to edit/add: Last Vital Signs Temp 98.1 F 01/20/25 13:00 Pulse 71 01/20/25 13:00 Resp 18 01/20/25 13:00 BP 138/71 01/20/25 13:00 Pulse Ox 98 01/20/25 13:00 O2 Del Method Room Air 01/20/25 13:00 Course Vital Signs Vital signs: Vital Signs Temperature 98.1 F 01/20/25 13:00 Pulse Rate 71 01/20/25 13:00 Respiratory Rate 18 01/20/25 13:00 Blood Pressure 138/71 01/20/25 13:00 Pulse Oximetry 98 01/20/25 13:00 Oxygen Delivery Method Room Air 01/20/25 13:00 Temperature 98.1 F 01/20/25 13:00 Pulse Rate 71 01/20/25 13:00 Respiratory Rate 18 01/20/25 13:00 Blood Pressure 138/71 01/20/25 13:00 Pulse Oximetry 98 01/20/25 13:00 Oxygen Delivery Method Room Air 01/20/25 13:00 Medical Decision Making MDM Narrative Medical decision making narrative: My clinical impression is that the patient has normal healing and he was reassured. There is no evidence of pseudoaneurysm or aneurysm or infection or hernia. Follow-up with his vascular surgeon. Treatment diagnosis and follow-up were discussed with the patient. Differential Diagnosis Differential Diagnosis: Scar tissue, hernia, pseudoaneurysm Discharge Plan Discharge Chief Complaint: Skin/Abscess/Foreign Body Clinical Impression: Other acute postprocedural pain Patient Disposition: Home, Self-Care Time of Disposition Decision: 13:56 Condition: Good Mode of Transportation: Private Vehicle Prescriptions / Home Meds: No Action aspirin 81 mg tablet,chewable 1 tab PO DAILY atorvastatin 80 mg tablet 80 mg PO QPM albuterol sulfate 90 mcg/actuation HFA aerosol inhaler 2 inh inhalation Q4H PRN (Reason: shortness of breath or wheezing) Qty: 8.5 0RF metoprolol tartrate 25 mg tablet 25 mg PO BID nitroglycerin 0.4 mg tablet, sublingual 0.4 mg sublingual Q5M Rx Instructions: do not exceed 3 doses per episode phenazopyridine 200 mg tablet 200 mg PO TIDWMEAL Rx Instructions: started on 11/24/24 for 2 days valsartan 40 mg tablet 40 mg PO DAILY sulfamethoxazole-trimethoprim [Bactrim DS] 800-160 mg tablet 1 tab PO BID 7 Days Qty: 14 0RF clopidogrel [Plavix] 75 mg tablet 75 mg PO DAILY Print Language: Romanian Instructions: Wound Healing and Your Diet (ED) Referrals: Sukumar Davison MD [Primary Care Provider, Family Practice] - 1 week
[2025-01-20 14:10] VITALS: BP 142/82; PULSE 75; O2SAT 97
== END 2025-01-20 14:10 | disposition home or self-care (01) ==
PROVIDERS: Emergency Provider Emergency Medicine; PCP Family Medicine
DX: G89.18 Other acute postprocedural pain (principal); F17.200 Nicotine dependence, unspecified, uncomplicated
CPT/HCPCS: 99282

== ENCOUNTER 2025-03-14 21:48 | Emergency (ER) | payer OTHER, SELFPAY ==
[2025-03-14] VITALS (7 sets, daily range): BP systolic 128–137; BP diastolic 82–85; PULSE 82–90; TEMP 36.7; O2SAT 92–93; BMI 85.4
--- NOTE | 2025-03-14 22:36 | XR_ITS ---
[place] [id number] Patient Name: HECTOR HIGHTOWER MRN: [id number] date: 1960 Sex: M Assigned Patient Location: ER Current Patient Location: ED.MAIN Accession/Order Number: [id number] Exam Date: 03/14/2025 23:12 Report Date: 03/14/2025 23:13 At the request of: SARITA RUSSELL MD Procedure: XR chest 1V Plain film chest Single view HISTORY: Cough for one week COMPARISON: 11/02/2024 FINDINGS: SUPPORT DEVICES: None POSTSURGICAL CHANGES: None HEART: Within normal limits PULMONARY MEG: Within normal limits MEDIASTINUM: Unremarkable LUNGS AND PLEURA: No acute lung process, pleural effusion or pneumothorax identified. Minor interstitial changes BONY STRUCTURES: Intact ADDITIONAL FINDINGS None XR/XR chest 1V IMPRESSION: No acute process. Impression dictated by: Edilson Grant M.D. 03/14/2025 11:13 PM Dictation Location: [employer] Electronically authenticated by: [id number] Y Date: 03/14/2025 23:13
--- NOTE | 2025-03-14 22:36 | ECG_ITS ---
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
--- NOTE | 2025-03-14 22:36 | ED_ITS ---
HPI HPI - General Adult General Chief complaint: Weakness Stated complaint: UPSET STOMACH, DIARRHEA,SOB Time Seen by Provider: 03/14/25 22:19 Source: patient Mode of arrival: walk-in Limitations: no limitations History of Present Illness HPI narrative: 64-year-old male presented to the emergency department for nausea vomiting diarrhea which began tonight. He has not felt well for about a week, he felt rundown. Nausea vomiting diarrhea however started tonight after he ate a homemade meal. Nobody else ate with him. No hematemesis or blood in his diarrhea. Related Data Home Medications ?Medication ?Instructions ?Recorded ?Confirmed aspirin 81 mg chewable tablet 1 tab PO DAILY 01/24/23 11/25/24 atorvastatin 80 mg tablet 80 mg PO QPM 01/24/23 clopidogrel 75 mg tablet (Plavix) 75 mg PO DAILY 10/0811/25/24 metoprolol tartrate 25 mg tablet 25 mg PO BID 11/16/24 11/25/24 nitroglycerin 0.4 mg sublingual 0.4 mg sublingual Q5M 11/16/24 11/25/24 tablet phenazopyridine 200 mg tablet 200 mg PO TIDWMEAL 11/2511/25/24 valsartan 40 mg tablet 40 mg PO DAILY 11/25/2410/17 Previous Rx's ?Medication ?Instructions ?Recorded albuterol sulfate 90 mcg/actuation 2 inh inhalation Q4 H PRN shortness 08/10/24 aerosol inhaler of breath or wheezing #8.5 g krystyna sulfamethoxazole 800 1 tab PO BID 7 days #14 tabs 11/25/24 mg-trimethoprim 160 mg tablet (Bactrim DS) ondansetron 4 mg disintegrating 4 mg PO Q6H PRN nausea and 03/14/25 tablet vomiting #20 tabs Allergies Allergy/AdvReac Type Severity Reaction Status Date / Time Penicillins Allergy Severe Hives Verified 03/14/25 22:20 pneumonia shot AdvReac Intermediate Unknown Uncoded 03/14/25 22:20 Review of Systems ROS Narrative A ten point review of systems is negative except as noted above. [facility] Medical History (Updated 03/14/25 @ 23:32 by Frank Ashford MD) Hypercholesterolemia ?E78.00 - Pure hypercholesterolemia, unspecified (ICD-10) COPD (chronic obstructive pulmonary disease) ?J44.9 - Chronic obstructive pulmonary disease, unspecified (ICD-10) Social History Smoking status: Current every day smoker Little interest or pleasure in doing things: not at all Feeling down, depressed, or hopeless: not at all Exam Narrative Exam Narrative: Nurses note and vital signs reviewed and patient is not hypoxic. General: The patient appears well and in no apparent distress. Patient is resting comfortably on cart. Skin: Warm, dry, no pallor noted. There is no rash noted. Head: Normocephalic, atraumatic Eye: Normal conjunctiva, no drainage Ears, Nose, Mouth, and Throat: oral mucosa is moist. Nares patent. Cardiovascular: Regular Rate and Rhythm Respiratory: Patient is in no distress, no accessory muscle use, lungs are clear to auscultation, no wheezing, rales or rhonchi Back: non-tender GI: Normal bowel sounds, no tenderness to palpation, no masses appreciated. No rebound, guarding, or rigidity noted. Musculoskeletal: The patient has no evidence of calf tenderness, no pitting edema, symmetrical pulses noted bilaterally Neurological: A&O, normal speech Psychiatric: Cooperative Constitutional Vital Signs, click to edit/add: Last Vital Signs Temp 98.1 F 03/14/25:27 Pulse 90 03/14/25 22:27 Resp 03/14/25 22: BP 128/85 03/14/25 22:27 Pulse Ox 93 L 03/14/25 22:27 O2 Del Method Room Air 03/14/25 22: Course Vital Signs Vital signs: Vital Signs Temperature 98.1 F 03/14/25 22:27 Pulse Rate 90 03/14/25 22:27 Respiratory Rate 20 03/14/25 22: Blood Pressure 128/85 03/14/25 22:27 Pulse Oximetry 93 L 03/14/25 22:27 Oxygen Delivery Method Room Air 03/14/25 22:27 Temperature 98.1 F 03/14/25 22:27 Pulse Rate 90 03/14/25 22:27 Respiratory Rate 20 03/14/25 22:27 Blood Pressure 128/85 03/14/25 22:27 Pulse Oximetry 93 L 03/14/25 22:27 Oxygen Delivery Method Room Air 03/14/25 22:27 Medical Decision Making MDM Narrative Medical decision making narrative: His workup is negative including blood work, EKG, and chest x-ray. She feels improved after being given IV fluids and Zofran and discharged home on Zofran. Treatment diagnosis and follow-up were discussed with the patient. Differential Diagnosis Differential Diagnosis: Gastroenteritis, dehydration Lab Data Lab results reviewed: Yes I reviewed the patient's lab results Labs: Lab Results 03/14/25 Range/Units 22:45 WBC 5.6 (4.0-11.0) 10^3/uL RBC 4.81 (4.70-6.10) 10^6/uL Hgb 14.5 (14.0-18.0) g/dL Hct 42.1 (42.0-54.0) % MCV 87.5 (80.0-94.0) fL MCH 30.1 (25.9-34.0) pg MCHC 34.4 (29.9-35.2) g/dL RDW 13.2 (11.0-15.0) % Plt Count 216 (150-450) 10^3/uL MPV 9.4 L (9.5-13.5) fL Neut % (Auto) 60.4 (43.0-75.0) % Lymph % (Auto) 23.9 (20.5-60.0) % Hyde % (Auto) 11.0 (1.7-12.0) % Eos % (Auto) 4.0 (0.9-7.0) % Baso % (Auto) 0.5 (0.2-2.0) % Neut # (Auto) 3.4 (1.4-6.5) 10^3/uL Lymph # (Auto) 1.3 (1.2-3.8) 10^3/uL Hyde # (Auto) 0.6 (0.3-0.8) 10^3/uL Eos # (Auto) 0.2 (0.0-0.7) 10^3/uL Baso # (Auto) 0.0 (0.0-0.1) 10^3/uL Abs Immat Gran (auto) 0.01 (0.00-0.03) 10^3/uL Imm/Tot Granulo (auto) 0.2 (0.0-0.5) % Sodium 145 (136-145) mmol/L Potassium 4.1 (3.5-5.1) mmol/L Chloride 108 H (98-107) mmol/L Carbon Dioxide 28.3 (21.0-32.0) mmol/L Anion Gap 12.8 BUN 25.0 H (7.0-18.0) mg/dL Creatinine 1.35 H (0.70-1.30) mg/dL Est GFR ( Amer) >60 (>=60 mL/min/1.73m^2) Est GFR (Non-Af Amer) 53 L (>=60 mL/min/1.73m^2) BUN/Creatinine Ratio 18.5 Glucose 139 H (74-106) mg/dL Calcium 9.2 (8.5-10.1) mg/dL Imaging Data Chest x-ray: Radiologist's impression: ITS Impressions Chest X-Ray 03/14/25 22:36 IMPRESSION: No acute process. Impression dictated by: Edilson Grant M.D. 03/14/2025 11:13 PM Dictation Location: [employer] Electronically authenticated by: [id number] Y Date: 03/14/2025 23:13 Discharge Plan Discharge Chief Complaint: Weakness Clinical Impression: Nausea, vomiting, and diarrhea Patient Disposition: Home, Self-Care Time of Disposition Decision: 23:32 Condition: Good Mode of Transportation: Private Vehicle Prescriptions / Home Meds: New ondansetron 4 mg tablet,disintegrating 4 mg PO Q6H PRN (Reason: nausea and vomiting) Qty: 20 0RF No Action aspirin 81 mg tablet,chewable 1 tab PO DAILY atorvastatin 80 mg tablet 80 mg PO QPM albuterol sulfate 90 mcg/actuation HFA aerosol inhaler 2 inh inhalation Q4H PRN (Reason: shortness of breath or wheezing) Qty: 8.5 0RF metoprolol tartrate 25 mg tablet 25 mg PO BID nitroglycerin 0.4 mg tablet, sublingual 0.4 mg sublingual Q5M Rx Instructions: do not exceed 3 doses per episode phenazopyridine 200 mg tablet 200 mg PO TIDWMEAL Rx Instructions: started on 11/24/24 for 2 days valsartan 40 mg tablet 40 mg PO DAILY sulfamethoxazole-trimethoprim [Bactrim DS] 800-160 mg tablet 1 tab PO BID 7 Days Qty: 14 0RF clopidogrel [Plavix] 75 mg tablet 75 mg PO DAILY Print Language: [place] Instructions: Acute Nausea and Vomiting (ED), Acute Diarrhea (ED) Referrals: Sukumar Davison MD [Primary Care Provider, Family Practice] - 1 week
[2025-03-14] MEDS: 0.9 % SODIUM CHLORIDE 1,000 ML 1000 ML IV (23:00)
--- OUTSIDE RECORDS SUMMARY | 2025-03-14 23:00 | XMS_ITS | CCD ---
Author Organization [facility] Care Team Providers Care Manager Immunology Name Role Phone DO Wagner Marrufo Attending Provider Brock Modi Unavailable Wagner Marrufo Unavailable DO Wagner Marrufo Attending Provider MD Brock Modi Primary Care Provider MD [facility] Admit Provider [phone] MD Barbara Rivero Attending Provider [phone] Brock Modi Unavailable Unavailable Unavailable Adi Campos Unavailable ZELALEM Faustin Attending Provider MD Adi Campos Attending Provider [phone] KULDEEP, DR CAR Torres Attending Unavailable KULDEEP, DR CAR Torres Admitting Unavailable [facility] ., DR JUSTIN Urbano Consulting [...] MODI, DR BROCK Urbano Primary Care Unavailable XIOAMRA SCHNEIDER Consulting Unavailable HAY ., DR LUIS [...] Care Brock Leon MD Primary Care Provider [phone] Brock Modi MD Primary Care Provider [phone] Unavailable Primary Care Provider UnavailSeymour Fischer MD Primary Care Provider [phone] Seymour Harper MD Primary Care Provider [phone] ALOK WEBBER Attending Unavailable ALOK WEBBER Referring [...] & Blurred vision, Comment:nausea and blurred vision [facility] (20 sources) Substance with penicillin structure and antibacterial mechanism of action (substance) Drug allergy Edema, Unknown [facility] Other (20 sources) Pneumococcal 7-Zulma Conj Vacc Drug allergy undefined, Comment:pneumo nococcal 23 [facility] Other (20 sources) Penicillins; Translations: [Penicillins] Propensity to adverse reactions 05-29-20 13 Hives, Swelling [facility] (20 sources) Pneumococcal vaccine; Translations: [PNEUMOCOCCAL VACCINE] Drug Allergy 08-08-19 22 Other, Nausea And Vomiting [facility] (8 sources) Pneumococcal vaccine; Translations: [Pneumococcal Vaccines] Drug Allergy Hives [place] [address] DO Work Phone: (2 sources) Penicillin Drug Allergy 07-29-19 16 Unknown [facility] Other (2 sources) patient allergy list reviewed by nurse or physicia Propensity to adverse reactions 07-29-19 16 Comment:Done [facility] Other (2 sources) Allergies Reconciled Propensity to adverse reactions Unknown [facility] Other (7 sources) pneumococcal 7-valent conjugate to; Translations: [pneumococcal 7-valent conjugate to] Allergy to substance 10-26-19 Comment:pneumo nococcal 23 [facility] (10 sources) Ciprofloxacin; Translations: [CIPROFLOXACIN HCL] Drug Allergy 08-08-19 [facility] [place] (1 source) Ciprofloxacin Drug Allergy 05-29-20 [facility] Repository Medications Current Medications Medication Drug Class(es) [...] 11-12-2022 take 2 tablets by mo [facility] every twenty-four hours predniSONE 20 MG 2 tablets Orally Once a day for 5 days Oct, Active Start: 07-30-2022 take 1 tablet by [facility] every twenty-four hours predniSONE 10 [...] 5 mg capsule Take by mouth. 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 Normal [facility] Comment on above: Performed By: #### C UU #### [address] [place] [address] [facility] BASIC METABOLIC PANLon 11-15 Anion gap [Moles/Vol] 9 mmol/L Normal 5-15 [facility] Comment on above: Performed By: #### C BCA, BMP, PINR, 66618-5 #### [facility] ([id number]) [address] [place] [address] Calcium [Mass/Vol] 8.6 mg/dL Normal 8.5-10.5 [facility] Comment on above: Performed By: #### C BCA, BMP, PINR, 87302-9 #### [facility] ([id number]) [address], [address] [place] [address] Chloride [Moles/Vol] 109 mmol/L Normal 98-109 [facility] Comment on above: Performed By: #### C BCA, BMP, PINR, 97259-8 #### [facility] ([id number]) [address] [place] [address] CO2 [Moles/Vol] 24 mmol/L Normal 22-32 Comment on above: Performed By: #### C BCA, BMP, PINR, 09878-7 #### [facility] ([id number]) [address], [address] [place] [address] Creatinine [Mass/Vol] 1.22 mg/dL Normal 0.60-1.30 [facility] Comment on above: Result Comment: METH OD TRACEABLE TO IDMS STANDARD Performed By: #### C BCA, BMP, PINR, 48592-0 #### [facility] ([id number]) [address] [place] [address] GFR/1.73 sq M.predicted among non-blacks MDRD (S/P/Bld) [Vol rate/Area] 66 mL/min/{1.73_m2} Normal >59 Comment on above: Result Comment: Reported eGFR is based on the CKD-EPI 2020 equation that does not use a race coefficient. Performed By: #### C BCA, BMP, PINR, 54350-4 #### [facility] ([id number]) [address], [address] [place] [address] Glucose [Mass/Vol] 155 mg/dL High 65-99 [facility] Comment on above: Performed By: #### C BCA, BMP, PINR, 34790-7 #### [facility] ([id number]) [address] [address] [place] [address] Potassium [Moles/Vol] 4.3 mmol/L Normal 3.5-5.0 [facility] Comment on above: Performed By: #### C BCA, BMP, PINR, 23178-2 #### [facility] ([id number]) [address] [address] Sodium [Moles/Vol] 142 mmol/L Normal 134-146 [facility] Comment on above: Performed By: #### C BCA, BMP, PINR, 95278-9 #### [facility] ([id number]) [address] [address] [place] [address] Urea nitrogen [Mass/Vol] 24 mg/dL Normal 5-27 Comment on above: Performed By: #### C BCA, BMP, PINR, 42364-3 #### [facility] ([id number]) [address] [address] CBC AND AUTO DIFFon 11-16-19 25 ABSOLUTE BASOPHIL 0.0 X10E9/L Normal 0.0-0.2 [facility] Comment on above: Performed By: #### C BCA, BMP #### [facility] ([id number]) [address] [address] [place] [address] ABSOLUTE NEUTROPHIL 7.6 X10E9/L High 1.5-6.6 [facility] Comment on above: Performed By: #### C BCA, BMP #### [facility] ([id number]) [address] [place] [address] Basophils/100 WBC (Bld) 0.2 % Normal Comment on above: Performed By: #### C BCA, BMP #### [facility] ([id number]) [address] [place] [address] Eosinophils (Bld) [#/Vol] 0.0 10*3/uL Normal 0.0-0.4 Comment on above: Performed By: #### C SEBASTIÁN, BMP #### [facility] ([id number]) [address] [address] [place] [address] Eosinophils/100 WBC (Bld) 0.0 % Normal Comment on above: Performed By: #### C SEBASTIÁN, BMP #### [facility] ([id number]) [address] [place] [address] Erythrocyte distribution width (RBC) [Ratio] 14.0 % Normal 11.5-15.0 Comment on above: Performed By: #### C BCA, BMP #### [facility] ([id number]) [address] [place] [address] Hematocrit (Bld) [Volume fraction] 33.0 % Low 39-49 Comment on above: Performed By: #### C BCA, BMP #### [facility] ([id number]) [address] [place] [address] Hemoglobin (Bld) [Mass/Vol] 11.7 g/dL Low 13.0-17.0 Comment on above: Performed By: #### C BCA, BMP #### [facility] ([id number]) [address] [place] [address] Lymphocytes (Bld) [#/Vol] 0.9 10*3/uL Low 1.0-3.5 Comment on above: Performed By: #### C SEBASTIÁN, BMP #### [facility] ([id number]) [address] [place] [address] Lymphocytes/100 WBC (Bld) 9.4 % Normal Comment on above: Performed By: #### C SEBASTIÁN, BMP #### [facility] ([id number]) [address] [place] [address] MCH (RBC) [Entitic mass] 32.2 pg Normal 27-34 Comment on above: Performed By: #### C SEBASTIÁN, BMP #### [facility] ([id number]) [address] [place] [address] MCHC (RBC) [Mass/Vol] 35.3 g/dL Normal 32-36 [facility] Comment on above: Performed By: #### C SEBASTIÁN, BMP #### [facility] ([id number]) [address] [place] [address] MCV (RBC) [Entitic vol] 91 fL Normal 80-100 Comment on above: Performed By: #### C SEBASTIÁN, BMP #### [facility] ([id number]) [address] [place] [address] Monocytes (Bld) [#/Vol] 0.8 10*3/uL Normal 0-0.9 Comment on above: Performed By: #### C SEBASTIÁN, BMP #### [facility] ([id number]) [address] [place] [address] Monocytes/100 WBC (Bld) 8.5 % Normal Comment on above: Performed By: #### Augustin LOWERY, BMP #### [facility] ([id number]) [address] [place] [address] Neutrophils/100 WBC (Bld) 81.9 % Normal Comment on above: Performed By: #### C SEBASTIÁN, BMP #### [facility] ([id number]) [address] [place] [address] Platelet mean volume (Bld) [Entitic vol] 7.9 fL Normal 7-12 Comment on above: Performed By: #### C SEBASTIÁN, BMP #### [facility] ([id number]) [address] [place] [address] Platelets (Bld) [#/Vol] 141 10*3/uL Low 150-450 Comment on above: Performed By: #### C SEBASTIÁN, BMP #### [facility] ([id number]) [address] [place] [address] RBC COUNT 3.62 X10E12/L Low 4.10-5.70 Comment on above: Performed By: #### C SEBASTIÁN, BMP #### [facility] ([id number]) [address] [place] [address] WBC (Bld) [#/Vol] 9.2 10*3/uL Normal 4.0-11.0 [facility] Comment on above: Performed By: #### C SEBASTIÁN, BMP #### [facility] ([id number]) [address] [place] [address] BASIC METABOLIC PANLon 11-14 Anion gap [Moles/Vol] 5 mmol/L Normal 5-15 [facility] Comment on above: Performed By: #### C SEBASTIÁN, BMP #### [facility] ([id number]) [address] [place] [address] Calcium [Mass/Vol] 8.4 mg/dL Low 8.5-10.5 [facility] Comment on above: Performed By: #### C BCA, BMP #### [facility] ([id number]) [address] [place] [address] Chloride [Moles/Vol] 107 mmol/L Normal 98-109 [facility] Comment on above: Performed By: #### C BCA, BMP #### [facility] ([id number]) [address] [place] [address] CO2 [Moles/Vol] 26 mmol/L Normal 22-32 Comment on above: Performed By: #### C BCA, BMP #### [facility] ([id number]) [address] [place] [address] Creatinine [Mass/Vol] 1.10 mg/dL Normal 0.60-1.30 [facility] Comment on above: Result Comment: METH OD TRACEABLE TO IDMS STANDARD Performed By: #### C BCA, BMP #### [facility] ([id number]) [address] [place] [address] GFR/1.73 sq M.predicted among non-blacks MDRD (S/P/Bld) [Vol rate/Area] 75 mL/min/{1.73_m2} Normal >59 Comment on above: Result Comment: Reported eGFR is based on the CKD-EPI 2020 equation that does not use a race coefficient. Performed By: #### C BCA, BMP #### [facility] ([id number]) [address] [place] [address] Glucose [Mass/Vol] 102 mg/dL High 65-99 [facility] Comment on above: Performed By: #### C BCA, BMP #### [facility] ([id number]) [address] [place] [address] Potassium [Moles/Vol] 4.6 mmol/L Normal 3.5-5.0 [facility] Comment on above: Performed By: #### C BCA, BMP #### [facility] ([id number]) [address] [place] [address] Sodium [Moles/Vol] 138 mmol/L Normal 134-146 [facility] Comment on above: Performed By: #### C BCA, BMP #### [facility] ([id number]) [address] [place] [address] Urea nitrogen [Mass/Vol] 17 mg/dL Normal 5-27 Comment on above: Performed By: #### C SEBASTIÁN, BMP #### [facility] ([id number]) [address] [place] [address] CBC AND AUTO DIFFon 11-15-19 ABSOLUTE BASOPHIL 0.0 X10E9/L Normal 0.0-0.2 [facility] Comment on above: Performed By: #### C BCA, BMP #### [facility] ([id number]) [address] [place] [address] ABSOLUTE NEUTROPHIL 3.7 X10E9/L Normal 1.5-6.6 [facility] Comment on above: Performed By: #### C BCA, BMP #### [facility] ([id number]) [address] [place] [address] Basophils/100 WBC (Bld) 0.4 % Normal Comment on above: Performed By: #### C BCA, BMP #### [facility] ([id number]) [address] [address] [place] [address] Eosinophils (Bld) [#/Vol] 0.1 10*3/uL Normal 0.0-0.4 Comment on above: Performed By: #### C BCA, BMP #### [facility] ([id number]) [address] [place] [address] Eosinophils/100 WBC (Bld) 2.8 % Normal Comment on above: Performed By: #### C SEBASTIÁN, BMP #### [facility] ([id number]) [address] [place] [address] Erythrocyte distribution width (RBC) [Ratio] 14.4 % Normal 11.5-15.0 Comment on above: Performed By: #### C SEBASTIÁN, BMP #### [facility] ([id number]) [address] [place] [address] Hematocrit (Bld) [Volume fraction] 34.9 % Low 39-49 Comment on above: Performed By: #### C SEBASTIÁN, BMP #### [facility] ([id number]) [address] [place] [address] Hemoglobin (Bld) [Mass/Vol] 12.2 g/dL Low 13.0-17.0 Comment on above: Performed By: #### C SEBASTIÁN, BMP #### [facility] ([id number]) [address] [place] [address] Lymphocytes (Bld) [#/Vol] 0.7 10*3/uL Low 1.0-3.5 Comment on above: Performed By: #### C BCA, BMP #### [facility] ([id number]) [address] [place] [address] Lymphocytes/100 WBC (Bld) 15.1 % Normal Comment on above: Performed By: #### C BCA, BMP #### [facility] ([id number]) [address] [place] [address] MCH (RBC) [Entitic mass] 31.3 pg Normal 27-34 Comment on above: Performed By: #### C BCA, BMP #### [facility] ([id number]) [address] [place] [address] MCHC (RBC) [Mass/Vol] 35.0 g/dL Normal 32-36 [facility] Comment on above: Performed By: #### C SEBASTIÁN, BMP #### [facility] ([id number]) [address] [place] [address] MCV (RBC) [Entitic vol] 90 fL Normal 80-100 Comment on above: Performed By: #### C SEBASTIÁN, BMP #### [facility] ([id number]) [address] [place] [address] Monocytes (Bld) [#/Vol] 0.3 10*3/uL Normal 0-0.9 Comment on above: Performed By: #### C SEBASTIÁN, BMP #### [facility] ([id number]) [address] [place] [address] Monocytes/100 WBC (Bld) 6.0 % Normal Comment on above: Performed By: #### C SEBASTIÁN, BMP #### [facility] ([id number]) [address] [place] [address] Neutrophils/100 WBC (Bld) 75.7 % Normal Comment on above: Performed By: #### C SEBASTIÁN, BMP #### [facility] ([id number]) [address] [place] [address] Platelet mean volume (Bld) [Entitic vol] 7.5 fL Normal 7-12 Comment on above: Performed By: #### C SEBASTIÁN, BMP #### [facility] ([id number]) [address] [place] [address] Platelets (Bld) [#/Vol] 141 10*3/uL Low 150-450 Comment on above: Performed By: #### C BCA, BMP #### [facility] ([id number]) [address] [place] [address] RBC COUNT 3.90 X10E12/L Low 4.10-5.70 Comment on above: Performed By: #### C BCA, BMP #### [facility] ([id number]) [address] [place] [address] WBC (Bld) [#/Vol] 4.8 10*3/uL Normal 4.0-11.0 [facility] Comment on above: Performed By: #### C BCA, BMP #### [facility] ([id number]) [address] [place] [address] Magnesium Ionized ISE (Bld) [Moles/Vol]on 11-14-2024 Magnesium [Moles/Vol] 0.49 mmol/L Normal 0.45-0.74 [facility] Comment on above: Result Comment: NEW REFERENCE RANGE Performed By: #### 7 3572-0 #### [facility] ([id number]) [address] [place] [address] RAPID CARDIACon 11-14-2024 ABEBA'S TEST Normal Comment on above: Performed By: #### A FAB5 #### [facility] ([id number]) [address] [place] [address] Base excess Calc (Bld) [Moles/Vol] 0.1 mmol/L Normal 0.0-2.0 Comment on above: Performed By: #### A FAB5 #### [facility] ([id number]) [address] [place] [address] Body temperature 98.6 [degF] Normal 37.0 [facility] Comment on above: Performed By: #### A FAB5 #### [facility] ([id number]) [address] [place] [address] Glucose [Mass/Vol] 122 mg/dL High 65-99 [facility] Comment on above: Performed By: #### A FAB5 #### [facility] ([id number]) [address] [place] [address] HCO3 (Bld) [Moles/Vol] 25.4 mmol/L Normal 22-26 [facility] Comment on above: Performed By: #### A FAB5 #### [facility] ([id number]) [address] [place] [address] Hematocrit (Bld) [Volume fraction] 40 % Normal 39-49 Comment on above: Performed By: #### A FAB5 #### [facility] ([id number]) [address] [place] [address] Hemoglobin (Bld) [Mass/Vol] 13.0 g/dL Normal 13.0-17.0 Comment on above: Performed By: #### A FAB5 #### [facility] ([id number]) [address] [place] [address] INSP. O2 CONC. 100 % Normal Comment on above: Performed By: #### A FAB5 #### [facility] ([id number]) [address] [place] [address] IONIZED CALCIUM 4.8 mg/dL Normal 4.5-5.3 Comment on above: Performed By: #### A FAB5 #### [facility] ([id number]) [address] [place] [address] Oxygen (Bld) [Partial pressure] 391 mm[Hg] High 80-100 Comment on above: Performed By: #### A FAB5 #### [facility] ([id number]) [address] [place] [address] Oxygen saturation in Blood 100.4 % Normal >90 Comment on above: Performed By: #### A FAB5 #### [facility] ([id number]) [address] [place] [address] PCO2 43.6 MMHG Normal 35-45 Comment on above: Performed By: #### A FAB5 #### [facility] ([id number]) [address] [place] [address] pH (Bld) 7.373 [pH] Normal 7.350-7.45 0 Comment on above: Performed By: #### A FAB5 #### [facility] ([id number]) [address] [place] [address] Potassium [Moles/Vol] 4.3 mmol/L Normal 3.5-5.0 [facility] Comment on above: Performed By: #### A FAB5 #### [facility] ([id number]) [address] [place] [address] SAMPLE SITE MRAY Normal Comment on above: Performed By: #### A FAB5 #### [facility] ([id number]) [address] [place] [address] SAMPLE TYPE Arterial Normal Comment on above: Performed By: #### A FAB5 #### [facility] ([id number]) [address] [place] [address] ABO Rh Repeaton 10-31-2024 ABO B [facility] Rh Nom (Bld) Positive [facility] APTTon 10-31-2024 aPTT Coag (PPP) [Time] 31 s Pr [facility] BASIC METABOLIC PANLon 10-31 Anion gap [Moles/Vol] 7 mmol/L Normal 5-15 [facility] Comment on above: Performed By: #### C BCA, BMP, PINR, 27063-7 #### [facility] ([id number]) [address] [place] [address] Calcium [Mass/Vol] 9.7 mg/dL Normal 8.5-10.5 [facility] Comment on above: Performed By: #### C BCA, BMP, PINR, 95429-5 #### [facility] ([id number]) [address] [place] [address] Chloride [Moles/Vol] 103 mmol/L Normal 98-109 [facility] Comment on above: Performed By: #### C BCA, BMP, PINR, 97679-2 #### [facility] ([id number]) [address] [place] [address] CO2 [Moles/Vol] 30 mmol/L Normal 22-32 Comment on above: Performed By: #### C BCA, BMP, PINR, 11180-1 #### [facility] ([id number]) [address] [place] [address] Creatinine [Mass/Vol] 1.33 mg/dL High 0.60-1.30 [facility] Comment on above: Result Comment: METH OD TRACEABLE TO IDMS STANDARD Performed By: #### C BCA, BMP, PINR, 43003-3 #### [facility] ([id number]) [address], [address] [place] [id number] GFR/1.73 sq M.predicted among non-blacks MDRD (S/P/Bld) [Vol rate/Area] 60 mL/min/{1.73_m2} Normal >59 Comment on above: Result Comment: Reported eGFR is based on the CKD-EPI 2020 equation that does not use a race coefficient. Performed By: #### C BCA, BMP, PINR, 73217-1 #### [facility] ([id number]) [address], [address] [place] [address] Glucose [Mass/Vol] 102 mg/dL High 65-99 [facility] Comment on above: Performed By: #### C BCA, BMP, PINR, 30620-2 #### [facility] ([id number]) [address], [address] [place] [address] Potassium [Moles/Vol] 4.3 mmol/L Normal 3.5-5.0 [facility] Comment on above: Performed By: #### C BCA, BMP, PINR, 01703-6 #### [facility] ([id number]) [address], [address] [place] [address] Sodium [Moles/Vol] 140 mmol/L Normal 134-146 [facility] Comment on above: Performed By: #### C BCA, BMP, PINR, 55603-1 #### [facility] ([id number]) [address], [address] [place] [address] Urea nitrogen [Mass/Vol] 22 mg/dL Normal 5-27 Comment on above: Performed By: #### C BCA, BMP, PINR, 77897-6 #### [facility] ([id number]) [address], [address] [place] [address] Basic Metabolic Panelon 04-0 Anion gap [Moles/Vol] 7 mmol/L 5 - 15 mmol/L [facility] Calcium [Mass/Vol] 9.7 mg/dL 8.5 - 10. 5 mg/dL [facility] Chloride [Moles/Vol] 103 mmol/L 98 - 10 9 mmol/L [facility] CO2 [Moles/Vol] 30 mmol/L 22 - 32 mmol/L [facility] Creatinine [Mass/Vol] 1.33 mg/dL High 0.60 - 1.30 mg/dL [facility] Comment on above: METHOD TRACEABLE TO IDMS STANDARD eGFR (CKD-EPI)non-race dependent 60 - PINF [facility] Comment on above: Reported eGFR is based on the CKD-EPI 2020 equation that does not use a race coefficient. Glucose [Mass/Vol] 102 mg/dL High 65 - 99 mg/dL [facility] Interpretation and review of laboratory results Abnormal [facility] Potassium [Moles/Vol] 4.3 mmol/L 3.5 - 5.0 mmol/L [facility] Sodium [Moles/Vol] 140 mmol/L 134 - 146 mmol/L [facility] Urea nitrogen [Mass/Vol] 22 mg/dL 5 - 27 mg/dL [facility] CBC AND AUTO DIFFon 11-01-19 25 ABSOLUTE BASOPHIL 0.0 X10E9/L Normal 0.0-0.2 [facility] Comment on above: Performed By: #### C BCA, BMP, PINR, 27138-4 #### [facility] ([id number]) [address], [address] [place] [address] ABSOLUTE NEUTROPHIL 3.2 X10E9/L Normal 1.5-6.6 [facility] Comment on above: Performed By: #### C BCA, BMP, PINR, 00456-2 #### [facility] ([id number]) [address], [address] [place] [address] Basophils/100 WBC (Bld) 0.8 % Normal Comment on above: Performed By: #### C BCA, BMP, PINR, 26076-0 #### [facility] ([id number]) [address], [address] [place] [address] Eosinophils (Bld) [#/Vol] 0.2 10*3/uL Normal 0.0-0.4 Comment on above: Performed By: #### C BCA, BMP, PINR, 15226-4 #### [facility] ([id number]) [address], [address] [place] [address] Eosinophils/100 WBC (Bld) 3.4 % Normal Comment on above: Performed By: #### C BCA, BMP, PINR, 89788-2 #### [facility] ([id number]) [address], [address] [place] [address] Erythrocyte distribution width (RBC) [Ratio] 14.6 % Normal 11.5-15.0 Comment on above: Performed By: #### C BCA, BMP, PINR, 12351-0 #### [facility] ([id number]) [address], [address] [place] [address] Hematocrit (Bld) [Volume fraction] 43.7 % Normal 39-49 Comment on above: Performed By: #### C BCA, BMP, PINR, 53835-4 #### [facility] ([id number]) [address], [address] [place] [address] Hemoglobin (Bld) [Mass/Vol] 14.9 g/dL Normal 13.0-17.0 Comment on above: Performed By: #### C BCA, BMP, PINR, 31279-8 #### [facility] ([id number]) [address], [address] [place] [address] Lymphocytes (Bld) [#/Vol] 1.7 10*3/uL Normal 1.0-3.5 Comment on above: Performed By: #### C BCA, BMP, PINR, 36515-8 #### [facility] ([id number]) [address], [address] [place] [address] Lymphocytes/100 WBC (Bld) 29.4 % Normal Comment on above: Performed By: #### C BCA, BMP, PINR, 83343-0 #### [facility] ([id number]) [address], [address] [place] [address] MCH (RBC) [Entitic mass] 30.4 pg Normal 27-34 Comment on above: Performed By: #### C BCA, BMP, PINR, 91346-3 #### [facility] ([id number]) [address], [address] [place] [address] MCHC (RBC) [Mass/Vol] 34.1 g/dL Normal 32-36 [facility] Comment on above: Performed By: #### C BCA, BMP, PINR, 71287-4 #### [facility] ([id number]) [address], [address] [place] [address] MCV (RBC) [Entitic vol] 89 fL Normal 80-100 Comment on above: Performed By: #### C BCA, BMP, PINR, 14491-3 #### [facility] ([id number]) [address], [address] [place] [address] Monocytes (Bld) [#/Vol] 0.7 10*3/uL Normal 0-0.9 Comment on above: Performed By: #### C BCA, BMP, PINR, 02399-6 #### [facility] ([id number]) [address], [address] [place] [address] Monocytes/100 WBC (Bld) 12.0 % Normal Comment on above: Performed By: #### C BCA, BMP, PINR, 73550-2 #### [facility] ([id number]) [address], [address] [place] [address] Neutrophils/100 WBC (Bld) 54.4 % Normal Comment on above: Performed By: #### C BCA, BMP, PINR, 40401-1 #### [facility] ([id number]) [address], [address] [place] [address] Platelet mean volume (Bld) [Entitic vol] 8.0 fL Normal 7-12 Comment on above: Performed By: #### C BCA, BMP, PINR, 14566-2 #### [facility] ([id number]) [address], [address] [place] [address] Platelets (Bld) [#/Vol] 268 10*3/uL Normal 150-450 Comment on above: Performed By: #### C BCA, BMP, PINR, 89325-8 #### [facility] ([id number]) [address], [address] [place] [address] RBC COUNT 4.89 X10E12/L Normal 4.10-5.70 Comment on above: Performed By: #### C BCA, BMP, PINR, 63400-5 #### [facility] ([id number]) [address], [address] [place] [address] WBC (Bld) [#/Vol] 5.8 10*3/uL Normal 4.0-11.0 [facility] Comment on above: Performed By: #### C BCA, BMP, PINR, 68503-5 #### [facility] ([id number]) [address], [address] [place] [address] CBC auto differentialon 04-0 Basophils (Bld) [#/Vol] 0 10*3/uL [facility] Basophils/100 WBC (Bld) 0.8 % [facility] Eosinophils (Bld) [#/Vol] 0.2 10*3/uL [facility] Eosinophils/100 WBC (Bld) 3.4 % [facility] Erythrocyte distribution width (RBC) [Ratio] 14.6 % 11.5 - 15.0 % [facility] Hematocrit (Bld) [Volume fraction] 43.7 % 39 - 49 % [facility] Hemoglobin (Bld) [Mass/Vol] 14.9 g/dL 13.0 - 17.0 g/dL [facility] Lymphocytes (Bld) [#/Vol] 1.7 10*3/uL [facility] Lymphocytes/100 WBC (Bld) 29.4 % [facility] MCH (RBC) [Entitic mass] 30.4 pg 27 - 34 pg [facility] MCHC (RBC) [Mass/Vol] 34.1 g/dL 32 - 3 6 g/dL [facility] MCV (RBC) [Entitic vol] 89 fL 80 - 100 fL [facility] Monocytes (Bld) [#/Vol] 0.7 10*3/uL [facility] Monocytes/100 WBC (Bld) 12 % [facility] Neutrophils (Bld) [#/Vol] 3.2 10*3/uL [facility] Neutrophils/100 WBC (Bld) 54.4 % [facility] Platelet mean volume (Bld) [Entitic vol] 8 fL 7 - 12 fL [facility] Platelets (Bld) [#/Vol] 268 10*3/uL [facility] RBC (Bld) [#/Vol] 4.89 10*6/uL [facility] WBC corrected for nucl RBC Auto (Bld) [#/Vol] 5.8 [facility] No Panel Informationon 10-31 [facility] PROTIME AND INRon 10-31-2024 INR Coag (PPP) [Relative time] 0.9 {INR} Normal 0.9-1.2 Comment on above: Performed By: #### C BCA, BMP, PINR, 54036-8 #### [facility] ([id number]) [address], [address] [place] [address] PT Coag (PPP) [Time] 9.9 s Normal 9.8-13.2 [facility] Comment on above: Performed By: #### C BCA, BMP, PINR, 69010-9 #### [facility] ([id number]) [address], [address] [place] [address] Protime-INRon 10-31-2024 INR Coag (PPP) [Relative time] 0.9 {INR} [facility] PT Coag (PPP) [Time] 9.9 [facility] Type and screen(includes ind irect rosetta)on 10-31-2024 ABO B [facility] Rh Nom (Bld) Positive [facility] URINALYSISon 10-31-2024 Bilirubin Ql (U) Negative Normal NEG [facility] Comment on above: Performed By: #### U A #### [facility] ([id number]) [address], [address] [place] [address] BLOOD/HGB Negative Normal NEG Comment on above: Performed By: #### U A #### [facility] ([id number]) [address], [address] [place] [address] Color (U) YELLOW Normal YELLOW Comment on above: Performed By: #### U A #### [facility] ([id number]) [address], [address] [place] [address] Glucose Ql (U) Negative Normal NEG Comment on above: Performed By: #### U A #### [facility] ([id number]) [address] [place] [address] Ketones Ql (U) Negative Normal NEG Comment on above: Performed By: #### U A #### [facility] ([id number]) [address], [address] [place] [address] Leukocyte esterase Test strip Ql (U) Negative Normal NEG Comment on above: Performed By: #### U A #### [facility] ([id number]) [address], [address] [place] [address] MUCOUS PRESENT Abnormal NONE Comment on above: Performed By: #### U A #### [facility] ([id number]) [address], [address] [place] [address] Nitrite Ql (U) Negative Normal NEG Comment on above: Performed By: #### U A #### [facility] ([id number]) [address] [address] [place] [address] pH (U) 6.0 [pH] Normal 5.0-8.5 Comment on above: Performed By: #### U A #### [facility] ([id number]) [address] [address] Protein Ql (U) 50 mg/dL Abnormal NEG Comment on above: Performed By: #### U A #### [facility] ([id number]) [address] [address] R.B.CELLS 0 /hpf Normal 0-5 Comment on above: Performed By: #### U A #### [facility] ([id number]) [address] [address] Specific gravity (U) [Rel density] 1.035 Normal 1.003-1.03 5 Comment on above: Performed By: #### U A #### [facility] ([id number]) [address] [address] SQUAMOUS EPITHELIUM 14 /hpf High 0-5 [facility] Comment on above: Performed By: #### U A #### [facility] ([id number]) [address] [address] TURBIDITY CLOUDY Abnormal CLEAR Comment on above: Performed By: #### U A #### [facility] ([id number]) [address] [address] Urinalysis dipstick W Reflex Microscopic panel (U) URINE RECEIVED WITHOUT PRESERVATIVE-DELAYS IN TRANSPORT MAY AFFECT RESULTS.INTERPRET WITH CAUTION AND CLINICAL CORRELATION IS RECOMMENDED. Normal Comment on above: Performed By: #### U A #### [facility] ([id number]) [address], [address] [place] [address] Urobilinogen (U) [Mass/Vol] mg/dL Normal <1.1 Comment on above: Performed By: #### U A #### [facility] ([id number]) [address], [address] [place] [address] W.B.CELLS 3 /hpf Normal 0-5 Comment on above: Performed By: #### U A #### [facility] ([id number]) [address] [place] [address] Urinalysison 10-31-2024 Bilirubin Ql (U) Negative Negative^N egative [facility] Color (U) YELLOW YELLOW^YEL LOW [facility] Epithelial cells Auto (Urine sed) [#/Area] 14 High [facility] Glucose (U) [Mass/Vol] Negative Negat carol^N egative mg/dL [facility] Hemoglobin Auto test strip Ql (U) Negative Negative^N egative [facility] Interpretation and review of laboratory results Abnormal [facility] Ketones (U) [Mass/Vol] Negative Negat carol^N egative mg/dL [facility] Leukocyte esterase Auto test strip Ql (U) Negative Negative^N egative [facility] Mucus Ql (Urine sed) PRESENT Abnormal NONE^NONE [facility] Nitrite Auto test strip Ql (U) Negative Negative^N egative [facility] pH (U) 6 [pH] 5.0 - 8.5 [facility] Protein (U) [Mass/Vol] 50 mg/dL Abnormal Negat carol^N egative [facility] RBC Auto (Urine sed) [#/Area] 0 [facility] Specific gravity Refractometry automated (U) [Rel density] 1.035 1.003 - 1.035 [facility] Turbidity Ql (U) CLOUDY Abnormal CLEAR^BASHIR R [facility] Urinalysis microscopic panel Auto (Urine sed) [#/Area] URINE RECEIVED WITHOUT PRESERVATIVE-DELAYS IN TRANSPORT MAY AFFECT RESULTS.INTERPRET WITH CAUTION AND CLINICAL CORRELATION IS RECOMMENDED. [facility] Urobilinogen Qn (U) NINF [facility] WBC Auto (Urine sed) [#/Area] 3 [facility] aPTT Coag (PPP) [Time]on aPTT Coag (Bld) [Time] 31 s Normal 26-37 Pr [facility] Comment on above: Performed By: #### C BCA, BMP, PINR, 66437-2 #### [facility] ([id number]) [address] [facility], [address] [place] [address] ECG 12 Leadon 09-20-2024 Sinus tachycardia, incomplete right bundle branch block, abnormal ECG [facility] Work Phone: [place] [address] [place] Scan Report Signed Patient: HECTOR GASPAR MR#: [id number] : 1960 Acct:[id number] Age/Sex: 64 / M ADM Date: 09/11/24 Loc: CT Attending Dr: Rom Pierre M.D. Ordering Physician: Rom Pierre M.D. Date of Service: 09/11/24 Procedure(s): CT angio abdomen pelvis Accession Number(s): [id number] cc: Seymour Harper M.D. [place] [id number] Patient Name: HECTOR GASPAR MRN: [id number] date: 1960 Sex: M Assigned Patient Location: CT Current Patient Location: CT Accession/Order Number: [id number] Exam Date: 09/11/2024 13:03 Report Date: 09/11/2024 [...] Leonardo M.D. Signed By: 09/11/24 1600 DD/ [id number] TD/TT: Paid Search Manager: [facility] Radiology, Radiologi MD keaton - 09/12/2024 [place] [address] CT Scan Report Signed Patient: HECTOR GASPAR MR#: [id number] : 1960 Acct:[id number] Age/Sex: 64 / M ADM Date: 09/11/24 Loc: CT Attending Dr: Rom Pierre M.D. Ordering Physician: Rom Pierre M.D. Date of Service: 09/11/24 Procedure(s): CT angio abdomen pelvis Accession Number(s): [id number] cc: Seymour Harper M.D. [facility] [place] [id number] Patient Name: HECTOR GASPAR MRN: [id number] date: 1960 Sex: M Assigned Patient Location: CT Current Patient Location: CT Accession/Order Number: [id number] Exam Date: 09/11/2024 13:03 Report Date: 09/11/2024 [...] Leonardo M.D. Signed By: 09/11/24 1600 DD/ [id number] TD/TT: Paid Search Manager: [facility] Radiology Study observation (narrative) [facility] CT ANGIO ABDOMEN PELVISOrder ed By: Radiologist Radiology on 09-11-2024 [facility] Work Phone: Basophils Auto (Bld) [#/Vol] on 05-07-2024 Basophils (Bld) [#/Vol] 0.0 10 3/uL 0.0-0.1 [facility] Basophils/100 WBC Auto (Bld) on 05-07-2024 Basophils/100 WBC (Bld) 0.6 % 0.2-2.0 [facility] Eosinophils/100 WBC Auto (Bl d)on 05-07-2024 Eosinophils/100 WBC (Bld) 3.8 % 0.9-7.0 [facility] Erythrocyte distribution wid th Auto (RBC) [Ratio]on 05-07-2024 Erythrocyte distribution width (RBC) [Ratio] 12.4 % 11.0-15.0 [facility] Estimated glomerular filtrat ion rate (GFR) non- Americanon 05-07-2024 GFR/1.73 sq M.predicted among non-blacks MDRD (S/P/Bld) [Vol rate/Area] 52 mL/min/{1.73_m2} Low >=60 mL/min/1.7 3m 2 [facility] Globulin Calc (S) [Mass/Vol] on 05-07-2024 Globulin (S) [Mass/Vol] 3.7 g/dL [facility] Hematocrit Auto (Bld) [Volum e fraction]on 05-07-2024 Hematocrit (Bld) [Volume fraction] 39.8 % Low 42.0-54.0 [facility] Hemoglobin [Mass/volume] in Bloodon 05-07-2024 Hemoglobin (Bld) [Mass/Vol] 13.8 g/dL Low 14.0-18.0 [facility] INR in Platelet poor plasma by Coagulation assayon 05-07-2024 INR Coag (PPP) [Relative time] 0.96 {INR} [facility] Comment on above: DESIRED INR:2.0-3.0 CONDITIONS NOT LISTED BELOW2.5-3.5 FOR PROSTHETIC HEART VALVE REPLACEMENT2.5-3.5 RECURRENT THROMBOSIS Laboratory - Chemistry and C hemistry - challengeon 05-07-2024 Albumin [Mass/Vol] 3.7 g/dL 3.4-5.[address] [facility] ALP [Catalytic activity/Vol] 67 U/L 46-116 [facility] ALT [Catalytic activity/Vol] 26 U/L 16-63 [facility] AST [Catalytic activity/Vol] 19 U/L 15-37 [facility] Bilirubin [Mass/Vol] 0.4 mg/dL 0.2-1.0 [facility] Calcium [Mass/Vol] 9.3 mg/dL 8.5-10.[address] [facility] Chloride [Moles/Vol] 104 mmol/L 98-107 [facility] CO2 [Moles/Vol] 27.0 mmol/L 21.0-32.0 [facility] Creatinine [Mass/Vol] 1.38 mg/dL High 0.70-1.30 [facility] GFR/1.73 sq M.predicted MDRD (S/P/Bld) [Vol rate/Area] mL/min/{1.73_m2} >=60 mL/min/1.7 3m 2 [facility] Glucose [Mass/Vol] 111 mg/dL High 74-[address] [facility] Natriuretic peptide B (Bld) [Mass/Vol] 87.0 pg/mL <=900.0 [facility] Potassium [Moles/Vol] 4.1 mmol/L 3.5-5.1 [facility] Protein [Mass/Vol] 7.4 g/dL 6.4-8.[address] [facility] Sodium [Moles/Vol] 141 mmol/L 136-[address] [facility] Urea nitrogen [Mass/Vol] 18.0 mg/dL 7.0-18.0 [facility] Urea nitrogen/Creatinine [Mass ratio] 13.0 mg/mg [facility] Laboratory - Hematology and Cell countson 05-07-2024 Immature granulocytes/100 WBC (Bld) 0.2 % 0.0-0.5 [facility] Leukocytes [#/volume] correc kal for nucleated erythrocytes in Blood by Automated counon 05-07-2024 WBC corrected for nucl RBC Auto (Bld) [#/Vol] 4.7 10 3/uL 4.0-11.0 [facility] Lymphocytes Auto (Bld) [#/Vo l]on 05-07-2024 Lymphocytes (Bld) [#/Vol] 1.6 10 3/uL 1.2-3.8 [facility] Lymphocytes/100 WBC Auto (Bl d)on 05-07-2024 Lymphocytes/100 WBC (Bld) 34.4 % 20.5-60.0 [facility] MCH Auto (RBC) [Entitic mass ]on 05-07-2024 MCH (RBC) [Entitic mass] 30.9 pg 25.9-34.0 [facility] MCHC Auto (RBC) [Mass/Vol]on 05-07-2024 MCHC (RBC) [Mass/Vol] 34.7 g/dL 29.9-35.2 [facility] MCV Auto (RBC) [Entitic vol] on 05-07-2024 MCV (RBC) [Entitic vol] 89.2 fL 80.0-94.0 [facility] Monocytes Auto (Bld) [#/Vol] on 05-07-2024 Monocytes (Bld) [#/Vol] 0.6 10 3/uL 0.3-0.8 [facility] Monocytes/100 WBC Auto (Bld) on 05-07-2024 Monocytes/100 WBC (Bld) 12.4 % High 1.7-12.0 [facility] Neutrophils Auto (Bld) [#/Vo l]on 05-07-2024 Neutrophils (Bld) [#/Vol] 2.3 10 3/uL 1.4-6.5 [facility] Neutrophils/100 WBC Auto (Bl d)on 05-07-2024 Neutrophils/100 WBC (Bld) 48.6 % 43.0-75.0 [facility] No Panel Informationon 05-07 Eosinophils # (Auto) 0.2 10 3/uL 0.0-0.7 [facility] Immature Granulocyte # (Auto) 0.01 10 3/uL 0.00-0.03 [facility] Troponin I High Sensitivity 15.2 pg/mL 4.0-76.1 [facility] Comment on above: CUT-OFF POINTS HAVE [...] (Bld) [Entitic vol] 9.4 fL Low 9.5-13.5 [facility] Platelets Auto (Bld) [#/Vol] on 05-07-2024 Platelets (Bld) [#/Vol] 212 10 3/uL 150-450 [facility] Prothrombin time (PT)on 04-25 PT Coag (PPP) [Time] 10.2 s 9.0-11.6 [facility] RBC Auto (Bld) [#/Vol]on RBC (Bld) [#/Vol] 4.46 10 6/uL Low 4.70-6.10 [facility] Serum or plasma albumin/glob ulin mass ratioon 05-07-2024 Albumin/Globulin [Mass ratio] 1.0 {ratio} [facility] Serum or plasma anion gap de terminationon 05-07-2024 Anion gap [Moles/Vol] 14.1 mmol/L [facility] CT CTA ABD AND PELVISon 02-23 [...] Marie MD on 03/07/2024 12:12 PM Normal [facility] Basophils Auto (Bld) [#/Vol] on 10-09-2023 Basophils (Bld) [#/Vol] 0.0 10 3/uL 0.0-0.1 [facility] Basophils/100 WBC Auto (Bld) on 10-09-2023 Basophils/100 WBC (Bld) 0.6 % 0.2-2.0 [facility] Eosinophils/100 WBC Auto (Bl d)on 10-09-2023 Eosinophils/100 WBC (Bld) 3.9 % 0.9-7.0 [facility] Erythrocyte distribution wid th Auto (RBC) [Ratio]on 10-09-2023 Erythrocyte distribution width (RBC) [Ratio] 13.2 % 11.0-15.0 [facility] Estimated glomerular filtrat ion rate (GFR) non- Americanon 10-09-2023 GFR/1.73 sq M.predicted among non-blacks MDRD (S/P/Bld) [Vol rate/Area] 45 mL/min/{1.73_m2} >=60 [facility] Globulin Calc (S) [Mass/Vol] on 10-09-2023 Globulin (S) [Mass/Vol] 3.4 g/dL [facility] Hematocrit Auto (Bld) [Volum e fraction]on 10-09-2023 Hematocrit (Bld) [Volume fraction] 36.4 % 42.0-54.0 [facility] Hemoglobin [Mass/volume] in Bloodon 10-09-2023 Hemoglobin (Bld) [Mass/Vol] 12.1 g/dL 14.0-18.0 [facility] Laboratory - Chemistry and C hemistry - challengeon 10-09-2023 Albumin [Mass/Vol] 3.5 g/dL 3.4-5.[address] [facility] ALP [Catalytic activity/Vol] 64 U/L 46-116 [facility] ALT [Catalytic activity/Vol] 35 U/L 16-63 [facility] AST [Catalytic activity/Vol] 24 U/L 15-37 [facility] Bilirubin [Mass/Vol] 0.4 mg/dL 0.2-1.0 [facility] Calcium [Mass/Vol] 9.0 mg/dL 8.5-10.[address] [facility] Chloride [Moles/Vol] 102 mmol/L 98-107 [facility] CO2 [Moles/Vol] 27.8 mmol/L 21.0-32.0 [facility] Creatinine [Mass/Vol] 1.58 mg/dL 0.70-1.30 [facility] GFR/1.73 sq M.predicted MDRD (S/P/Bld) [Vol rate/Area] 54 mL/min/{1.73_m2} >=60 [facility] Glucose [Mass/Vol] 96 mg/dL 74-[address] [facility] Potassium [Moles/Vol] 4.3 mmol/L 3.5-5.1 [facility] Protein [Mass/Vol] 6.9 g/dL 6.4-8.[address] [facility] Sodium [Moles/Vol] 136 mmol/L 136-[address] [facility] Urea nitrogen [Mass/Vol] 26.0 mg/dL 7.0-18.0 [facility] Urea nitrogen/Creatinine [Mass ratio] 16.5 mg/mg [facility] Laboratory - Hematology and Cell countson 10-09-2023 Immature granulocytes/100 WBC (Bld) 0.6 % 0.0-0.5 [facility] Leukocytes [#/volume] correc kal for nucleated erythrocytes in Blood by Automated counon 10-09-2023 WBC corrected for nucl RBC Auto (Bld) [#/Vol] 5.2 10 3/uL 4.0-11.0 [facility] Lymphocytes Auto (Bld) [#/Vo l]on 10-09-2023 Lymphocytes (Bld) [#/Vol] 1.5 10 3/uL 1.2-3.8 [facility] Lymphocytes/100 WBC Auto (Bl d)on 10-09-2023 Lymphocytes/100 WBC (Bld) 28.9 % 20.5-60.0 [facility] MCH Auto (RBC) [Entitic mass ]on 10-09-2023 MCH (RBC) [Entitic mass] 30.9 pg 25.9-34.0 [facility] MCHC Auto (RBC) [Mass/Vol]on 10-09-2023 MCHC (RBC) [Mass/Vol] 33.2 g/dL 29.9-35.2 [facility] MCV Auto (RBC) [Entitic vol] on 10-09-2023 MCV (RBC) [Entitic vol] 93.1 fL 80.0-94.0 [facility] Monocytes Auto (Bld) [#/Vol] on 10-09-2023 Monocytes (Bld) [#/Vol] 0.8 10 3/uL 0.3-0.8 [facility] Monocytes/100 WBC Auto (Bld) on 10-09-2023 Monocytes/100 WBC (Bld) 16.1 % 1.7-12.0 [facility] Neutrophils Auto (Bld) [#/Vo l]on 10-09-2023 Neutrophils (Bld) [#/Vol] 2.6 10 3/uL 1.4-6.5 [facility] Neutrophils/100 WBC Auto (Bl d)on 10-09-2023 Neutrophils/100 WBC (Bld) 49.9 % 43.0-75.0 [facility] No Panel Informationon 10-08 Eosinophils # (Auto) 0.2 10 3/uL 0.0-0.7 [facility] Immature Granulocyte # (Auto) 0.03 10 3/uL 0.00-0.03 [facility] Platelet mean volume Auto (B ld) [Entitic vol]on 10-09-2023 Platelet mean volume (Bld) [Entitic vol] 9.4 fL 9.5-13.5 [facility] Platelets Auto (Bld) [#/Vol] on 10-09-2023 Platelets (Bld) [#/Vol] 228 10 3/uL 150-450 [facility] RBC Auto (Bld) [#/Vol]on RBC (Bld) [#/Vol] 3.91 10 6/uL 4.70-6.10 [facility] Serum or plasma albumin/glob ulin mass ratioon 10-09-2023 Albumin/Globulin [Mass ratio] 1.0 {ratio} [facility] Serum or plasma anion gap de terminationon 10-09-2023 Anion gap [Moles/Vol] 10.5 mmol/L [facility] Office Visit (Cardiology)on 12-24-2022 Follow-up visit Diagnoses/Problems Assessed Coronary artery disease involving [place] coronary artery of [place] heart without angina pectoris (414.01) (I25.10) Preoperative [...] we can help. You may also call [phone] for free resources and assistance.; Status:Complete - [...] December. 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 Normal [facility] Tobacco Screening.on 023 Fall risk assessment c) Not medically indicated -[facility] [facility] DO Work Phone: Tobacco use status [facility] a) Yes [facility] 250 DO Work Phone: Tobacco Screening. Yes [facility] 250 DO Work Phone: Cardiovasc Arrhythmia Result son 11-02-2022 Cardiovasc Arrhythmia Results Reason For Visit Reason for Visit: Holter Monitor: HECTOR is here for the application of a 48 hour Holter monitor. Ordering Physician: JANINE CUNHA Diagnosis: CAD SINUS PAUSE [facility] equipment agreement signed. HECTOR understands monitor is to be returned on: 11-03-22 Monitor number [id number] applied. Holter monitor returned and downloaded. Procedure [...] symptomatic Diagnosis/Problems Assessed Coronary artery disease involving [place] coronary artery of [place] heart without angina pectoris (414.01) (I25.10) Sinus pause (426.6) (I45.5) Future Appointments Date/TimeProviderSpecialt ySite 01/19/2023 02:30 Alok Kirkland HUCvconcaxfu678 [facility] 2 Jonathan 250 DO Signatures Electronically signed by : Mallory Fan MA; Nov 02 2022 2:10PM EST (Author) Electronically signed by : Mohsen Gonsalves MD; Nov 08 2022 5:34PM EST (Author) Normal [facility] Calcium [Mass/volume] in Ser um or PlasmaOrdered By: Janine Cunha on 10-28-2022 Calcium [Mass/Vol] 9.5 mg/dL 8.6-10.[address] [facility] Carbon dioxide, total [Moles /volume] in Serum or PlasmaOrdered By: Janine Cunha on 10-28-2022 CO2 [Moles/Vol] 25.8 mmol/L 21.0-31.0 [facility] Chloride [Moles/volume] in S lisa or PlasmaOrdered By: Janine Cunha on 10-28-2022 Chloride [Moles/Vol] 107 mmol/L 98-107 [facility] Creatinine [Mass/volume] in Serum or PlasmaOrdered By: Janine Cunha on 10-28-2022 Creatinine [Mass/Vol] 1.16 mg/dL 0.70-1.30 [facility] Glucose [Mass/volume] in Ser um or PlasmaOrdered By: Janine Cunha on 10-28-2022 Glucose [Mass/Vol] 100 mg/dL 70-[address] [facility] Comment on above: ADA recommended refe rence rangeRandom Glucose Reference Range is dependent on time and content of last meal. Glucose of more than 200 mg/dL in a nonstressed, ambulatory subject supports the diagnosis of Diabetes Mellitus. No Panel InformationOrdered By: Janine Cunha on 10-28-2022 Estimated GFR (CKD-EPI) > 60.0 mL/Min [facility] Creatinine Clearance (Chem N/A [facility] No Panel Informationon 10-28 > 60.0 Normal [facility] 600 DO Work Phone: [phone] 11.6\S\11.6 Normal 6.0-15.0 [facility] 600 DO Work Phone: [phone] 9.5\S\9.5 Normal 8.6-10.3 [facility] 600 DO Work Phone: Comment on above: PERFORMED BY:[facility] [place] [place] [id number] MEDICAL DIRECTORJANETTE DE LA FUENTE M.D. 25.8\S\25.8 Normal 21.0-31.0 [facility] 600 DO Work Phone: [phone] 107\S\107 Normal 98-107 [facility] 600 DO Work Phone: [phone] 4.4\S\4.4 Normal 3.5-5.1 [facility] 600 DO Work Phone: [phone] 140\S\140 Normal 136-145 [facility] 600 DO Work Phone: [phone] 1.16\S\1.16 Normal 0.70-1.30 [facility] 600 DO Work Phone: [phone] 27\S\27 above high threshold 7-25 [facility] 600 DO Work Phone: [phone] 100\S\100 Normal 70-100 [facility] 600 DO Work Phone: Comment on above: Random Glucose Refer ence Range is dependent on time and content of last meal. Glucose of more than 200 mg/dL in a nonstressed, ambulatory subject supports the diagnosis of Diabetes Mellitus. ADA recommended reference range Potassium [Moles/volume] in Serum or PlasmaOrdered By: Janine Cunha on 10-28-2022 Potassium [Moles/Vol] 4.4 mmol/L 3.5-5.1 [facility] Serum or plasma anion gap de terminationOrdered By: Janine Cunha on 10-28-2022 Anion gap [Moles/Vol] 11.6 mmol/L 6.0-15.0 [facility] Sodium [Moles/volume] in Ser um or PlasmaOrdered By: Janine Cunha on 10-28-2022 Sodium [Moles/Vol] 140 mmol/L 136-[address] [facility] Urea nitrogen [Mass/volume] in Serum or PlasmaOrdered By: Janine Cunha on 10-28-2022 Urea nitrogen [Mass/Vol] 27 mg/dL 7-25 [facility] Tobacco Screening.on 023 Adult depression screening assessment No [facility] [facility] 250 DO Work Phone: Fall risk assessment a) No falls within the last year [facility] 250 DO Work Phone: Tobacco use status [facility] a) Yes [facility] [facility] 250 DO Work Phone: Tobacco Screening. Yes [facility] 250 DO Work Phone: Calcium [Mass/volume] in Ser um or PlasmaOrdered By: Rubén Tatum on 10-12-2022 Calcium [Mass/Vol] 9.0 mg/dL 8.6-10.[address] [facility] Carbon dioxide, total [Moles /volume] in Serum or PlasmaOrdered By: Rubén Tatum on 10-12-2022 CO2 [Moles/Vol] 25.2 mmol/L 21.0-31.0 [facility] Chloride [Moles/volume] in S lisa or PlasmaOrdered By: Rubén Tatum on 10-12-2022 Chloride [Moles/Vol] 107 mmol/L 98-107 [facility] Creatinine [Mass/volume] in Serum or PlasmaOrdered By: Rubén Tatum on 10-12-2022 Creatinine [Mass/Vol] 1.09 mg/dL 0.70-1.30 [facility] Glucose [Mass/volume] in Ser um or PlasmaOrdered By: Rubén Tatum on 10-12-2022 Glucose [Mass/Vol] 100 mg/dL 74-[address] [facility] Comment on above: ADA recommended refe rence rangeRandom Glucose Reference Range is dependent on time and content of last meal. Glucose of more than 200 mg/dL in a nonstressed, ambulatory subject supports the diagnosis of Diabetes Mellitus. Laboratory - Chemistry and C hemistry - challengeOrdered By: Rubén Tatum on 10-12-2022 GFR/1.73 sq M.predicted MDRD (S/P/Bld) [Vol rate/Area] mL/min/{1.73_m2} [facility] Magnesium [Mass/volume] in S lisa or PlasmaOrdered By: Rubén Tatum on 10-12-2022 Magnesium [Mass/Vol] 2.2 mg/dL 1.9-2.7 [facility] Natriuretic peptide B [Mass/ Vol]Ordered By: Rubén Tatum on 10-12-2022 Natriuretic peptide B (Bld) [Mass/Vol] 91.0 pg/mL 5-100 [facility] No Panel InformationOrdered By: Rubén Tatum on 10-12-2022 Pharmacy Creatinine Clearance (Chem 79.69 [facility] Potassium [Moles/volume] in Serum or PlasmaOrdered By: Rubén Tatum on 10-12-2022 Potassium [Moles/Vol] 4.2 mmol/L 3.5-5.1 [facility] Serum or plasma anion gap de terminationOrdered By: Rubén Tatum on 10-12-2022 Anion gap [Moles/Vol] 12.0 mmol/L 6.0-15.0 [facility] Sodium [Moles/volume] in Ser um or PlasmaOrdered By: Rubén Tatum on 10-12-2022 Sodium [Moles/Vol] 140 mmol/L 136-[address] [facility] Urea nitrogen [Mass/volume] in Serum or PlasmaOrdered By: Rubén Tatum on 10-12-2022 Urea nitrogen [Mass/Vol] 23 mg/dL 7 [facility] Alanine aminotransferase [En zymatic activity/volume] in Serum or PlasmaOrdered By: Rubén Tatum on 10-11-2022 ALT [Catalytic activity/Vol] 18 U/L 7 [facility] Albumin [Mass/volume] in Ser um or Plasma by Bromocresol green (BCG) dye binding methoOrdered By: Rubén Tatum on 10-11-2022 Albumin BCG dye [Mass/Vol] 3.9 g/dL 3.5-5.7 [facility] Alkaline phosphatase [Enzyma tic activity/volume] in Serum or PlasmaOrdered By: Rubén Tatum on 10-11-2022 ALP [Catalytic activity/Vol] 46 U/L 34-104 [facility] Aspartate aminotransferase [ Enzymatic activity/volume] in Serum or PlasmaOrdered By: Rubén Tatum on 10-11-2022 AST [Catalytic activity/Vol] 30 U/L 13-39 [facility] Basophils Auto (Bld) [#/Vol] Ordered By: Galo Dent on 10-11-2022 Basophils (Bld) [#/Vol] 0.0 10*3/uL 0.0-0.2 [facility] Basophils/100 WBC Auto (Bld) Ordered By: Galo Dent on 10-11-2022 Basophils/100 WBC (Bld) 0.5 % . [facility] Bilirubin.total [Mass/volume ] in Serum or PlasmaOrdered By: Rubén Tatum on 10-11-2022 Bilirubin [Mass/Vol] 0.4 mg/dL 0.3-1.0 [facility] Cholesterol [Mass/volume] in Serum or PlasmaOrdered By: Rubén Tatum on 10-11-2022 Cholesterol [Mass/Vol] 221 mg/dL 140-200 [facility] Comment on above: Chol less than 200 m g/dl low riskChol 201-239 mg/dl borderline riskChol 240 mg/dl and greater high risk Cholesterol in LDL Calc [Mas s/Vol]Ordered By: Rubén Tatum on 10-11-2022 Cholesterol in LDL [Mass/Vol] 149 mg/dL 0-100 [facility] Comment on above: LDL ATP III CLASSIFI CATIONLDL less than 100 mg/dL OptimalLDL 100-129 mg/dL Near or above optimalLDL 130-159 mg/dL Borderline highLDL 160-189 mg/dL HighLDL greater than 189 mg/dL Very high Cholesterol in VLDL Calc [Ma ss/Vol]Ordered By: Rubén Tatum on 10-11-2022 Cholesterol in VLDL [Mass/Vol] 30 mg/dL [facility] Eosinophils Auto (Bld) [#/Vo l]Ordered By: Galo Dent on 10-11-2022 Eosinophils (Bld) [#/Vol] 0.2 10*3/uL 0.0-0.45 [facility] Eosinophils/100 WBC Auto (Bl d)Ordered By: Galo Dent on 10-11-2022 Eosinophils/100 WBC (Bld) 3.7 % . [facility] Erythrocyte distribution wid th Auto (RBC) [Ratio]Ordered By: Galo Dent on 10-11-2022 Erythrocyte distribution width (RBC) [Ratio] 14.9 % 12.0-14.8 [facility] Globulin Calc (S) [Mass/Vol] Ordered By: Rubén Tatum on 10-11-2022 Globulin (S) [Mass/Vol] 2.5 g/dL [facility] Glucose mean value [Mass/vol ume] in Blood Estimated from glycated hemoglobinOrdered By: Galo Dent on 10-11-2022 Average glucose Estimated from glycated hemoglobin (Bld) [Mass/Vol] 120 mg/dL [facility] Hematocrit Auto (Bld) [Volum e fraction]Ordered By: Galo Dent on 10-11-2022 Hematocrit (Bld) [Volume fraction] 37.7 % 38.8-50.0 [facility] Hemoglobin A1c percentageOrd ered By: Galo Dent on 10-11-2022 HbA1c (Bld) [Mass fraction] 5.8 % 4.3-5.6 [facility] Comment on above: Increased risk for d iabetes: 5.7 - 6.4diabetes: >6.4glycemic control for adults with diabetes: <7.0 Hemoglobin [Mass/volume] in BloodOrdered By: Galo Dent on 10-11-2022 Hemoglobin (Bld) [Mass/Vol] 12.7 g/dL 13.0-17.0 [facility] Laboratory - CoagulationOrde red By: Galo Dent on 10-11-2022 PT Coag (PPP) [Time] 11.3 s 9.0-12.9 [facility] Leukocytes [#/volume] correc kal for nucleated erythrocytes in Blood by Automated counOrdered By: Galo Dent on 10-11-2022 WBC corrected for nucl RBC Auto (Bld) [#/Vol] 6.6 10*3/uL 4.1-10.5 [facility] Lymphocytes Auto (Bld) [#/Vo l]Ordered By: Galo Dent on 10-11-2022 Lymphocytes (Bld) [#/Vol] 1.4 10*3/uL 1.00-4.8 [facility] Lymphocytes/100 WBC Auto (Bl d)Ordered By: Galo Dent on 10-11-2022 Lymphocytes/100 WBC (Bld) 21.8 % . [facility] MCH Auto (RBC) [Entitic mass ]Ordered By: Galo Dent on 10-11-2022 MCH (RBC) [Entitic mass] 30.1 pg 27.5-35.2 [facility] MCHC Auto (RBC) [Mass/Vol]Or dered By: Galo Dent on 10-11-2022 MCHC (RBC) [Mass/Vol] 33.7 g/dL 32.5-35.6 [facility] MCV Auto (RBC) [Entitic vol] Ordered By: Galo Dent on 10-11-2022 MCV (RBC) [Entitic vol] 89.4 fL 83.5-101 [facility] Monocytes Auto (Bld) [#/Vol] Ordered By: Galo Dent on 10-11-2022 Monocytes (Bld) [#/Vol] 0.7 10*3/uL 0.0-0.8 [facility] Monocytes/100 WBC Auto (Bld) Ordered By: Galo Dent on 10-11-2022 Monocytes/100 WBC (Bld) 10.2 % . [facility] Neutrophils Auto (Bld) [#/Vo l]Ordered By: Galo Dent on 10-11-2022 Neutrophils (Bld) [#/Vol] 4.2 10*3/uL 1.8-7.7 [facility] Neutrophils/100 WBC Auto (Bl d)Ordered By: Galo Dent on 10-11-2022 Neutrophils/100 WBC (Bld) 63.8 % . [facility] Nucleated erythrocytes [Pres ence] in Blood by Automated countOrdered By: Galo Dent on 10-11-2022 Nucleated RBC Auto Ql (Bld) 0.1 /100{WBC} 0-0.5 [facility] Platelet mean volume Auto (B ld) [Entitic vol]Ordered By: Galo Dent on 10-11-2022 Platelet mean volume (Bld) [Entitic vol] 7.3 fL 6.6-10.1 [facility] Platelet poor plasma interna tional normalized ratio (INR) by coagulation assay (relatOrdered By: Galo Dent on 10-11-2022 INR Coag (PPP) [Relative time] 1.0 {INR} [facility] Comment on above: INR Therapeutic Rang [...] 10-11-2022 Platelets (Bld) [#/Vol] 203 10*3/uL 150-450 [facility] Protein [Mass/volume] in Ser um or PlasmaOrdered By: Rubén Tatum on 10-11-2022 Protein [Mass/Vol] 6.4 g/dL 6.4-8.[address] [facility] RBC Auto (Bld) [#/Vol]Ordere d By: Galo Dent on 10-11-2022 RBC (Bld) [#/Vol] 4.21 10*6/uL 3.90-5.60 [facility] Serum or plasma albumin/glob ulin mass ratioOrdered By: Rubén Tatum on 10-11-2022 Albumin/Globulin [Mass ratio] 1.6 {ratio} [facility] Serum or plasma high density lipoprotein (HDL) cholesterol measurementOrdered By: Rubén Tatum on 10-11-2022 Cholesterol in HDL [Mass/Vol] 42 mg/dL 29-71 [facility] Comment on above: HDL CHOL ATP-III CLA SSIFICATION Cardiovascular RiskHDL > or equal to 60 mg/dL LOWHDL < 40 mg/dL HIGH Serum or plasma total choles terol/high density lipoprotein (HDL) cholesterol mass ratOrdered By: Rubén Tatum on 10-11-2022 Cholesterol.total/Chol esterol in HDL [Mass ratio] 5.3 {ratio} <5.0 [facility] Triglyceride [Mass/volume] i n Serum or PlasmaOrdered By: Rubén Tatum on 10-11-2022 Triglyceride [Mass/Vol] 152 mg/dL 0-149 [facility] Comment on above: TRIG ATP III [...] <= 0.01 ng/mL [Mass/Vol] 3965.8 pg/mL 0.0-20.0 [facility] Comment on above: Critical Result : Ca lled to and read back by: HECTOR LOCO at: 10/11/2022 06:45:50 by:[id number] WBC Auto (Bld) [#/Vol]Ordere d By: Galo Dent on 10-11-2022 WBC (Bld) [#/Vol] 6.6 10*3/uL 4.1-10.[address] [facility] AMYLASEon 10-10-2022 Amylase [Catalytic activity/Vol] 40 U/L Normal 25-115 [facility] Comment on above: Performed By: #### A MY, CMP, LIPA #### [facility] [address] [address] [address] Carrington Chandler Activated partial thrombopla stin time (aPTT) in platelet poor plasma by coagulation aOrdered By: Galo Dent on 10-10-2022 aPTT Coag (PPP) [Time] 35.9 s 25.1-36.5 [facility] CARDIAC ARLIN ADMITon 023 CK [Catalytic activity/Vol] 530 U/L Critically high 39-308 [facility] Comment on above: Performed By: #### A MY, CMP, LIPA #### [facility] [address] [address] [address] Carrington Chandler CK.MB [Mass/Vol] 60.47 ng/mL Critically high <=3.60 [facility] Comment on above: Performed By: #### A MY, CMP, LIPA #### [facility] [address] [address] [address] Carrington Chandler HSTROP 9166.1 pg/mL Critically high 4.0-76.1 [facility] Comment on above: Result Comment: CUT- OFF POINTS HAVE BEEN ESTABLISHED BASED ON THE FOURTH UNIVERSAL DEFINITIONS OF MYOCARDIAL INFARCTION. THE UPPER REFERENCE LIMIT (URL) OF TROPONIN, DEFINED THE 99TH PERCENTILE OF cTnI DISTRIBUTION IN A REFERENCE POPULATION, HAS BEEN CONFIRMED THE DECISION THRESHOLD FOR PA DIAGNOSIS. Performed By: #### A MY, CMP, LIPA #### [facility] [address] [address] [address] Carrington Chandler SAULO 108 ng/mL Critically high 16-96 [facility] Comment on above: Performed By: #### A MY, CMP, LIPA #### [facility] [address] [address] [address] Carrington Chandler CBC AUTO DIFFon 10-10-2022 BASO # 0.0 103/ul Normal 0.0-0.1 [facility] Comment on above: Performed By: #### B MP #### [facility] [address] [place] [address] Dr. Carrington Chandler Basophils/100 WBC (Bld) 0.4 % Normal 0.2-2.0 [facility] Comment on above: Performed By: #### B MP #### [facility] [address] [place] [address] Dr. Carrington Chandler EO # 0.3 103/ul Normal 0.0-0.7 [facility] Comment on above: Performed By: #### B MP #### [facility] [address] [place] [address] Dr. Carrington Chandler Eosinophils/100 WBC (Bld) 4.9 % Normal 0.9-7.0 [facility] Comment on above: Performed By: #### B MP #### [facility] [address] [place] [address] Dr. Carrington Chandler Erythrocyte distribution width (RBC) [Ratio] 13.8 % Normal 11.0-15.0 [facility] Comment on above: Performed By: #### B MP #### [facility] [address] [place] [address] Dr. Carrington Chandler Hematocrit (Bld) [Volume fraction] 38.1 % Critically low 42.0-54.0 [facility] Comment on above: Performed By: #### B MP #### [facility] [address] [place] [address] Dr. Carrington Chandler Hemoglobin (Bld) [Mass/Vol] 13.1 g/dL Critically low 14.0-18.0 [facility] Comment on above: Performed By: #### B MP #### [facility] [address] [place] [address] Dr. Carrington Chandler IG # 0.01 10e3/ul Normal 0.00-0.03 [facility] Comment on above: Performed By: #### B MP #### [facility] [address] [place] [address] Dr. Carrington Chandler IG % 0.2 % Normal 0.0-0.5 [facility] Comment on above: Performed By: #### B MP #### [facility] [address] [place] [address] Dr. Carrington Chandler LYMPH # 1.8 103/ul Normal 1.2-3.8 [facility] Comment on above: Performed By: #### B MP #### [facility] [address] [place] [address] Dr. Carrington Chandler Lymphocytes/100 WBC (Bld) 33.5 % Normal 20.5-60.0 [facility] Comment on above: Performed By: #### B MP #### [facility] [address] [place] [address] Dr. Carrington Chandler MANUAL DIFF REQ NO Normal [facility] Comment on above: Performed By: #### B MP #### [facility] [address] [place] [address] Dr. Carrington Chandler MCH (RBC) [Entitic mass] 30.7 pg Normal 25.9-34.0 [facility] Comment on above: Performed By: #### B MP #### [facility] [address] [place] [address] Dr. Carrington Chandler MCHC (RBC) [Mass/Vol] 34.4 g/dL Normal 29.9-35.2 [facility] Comment on above: Performed By: #### B MP #### [facility] [address] [place] [address] Dr. Carrington Chandler MCV (RBC) [Entitic vol] 89.2 fL Normal 80.0-94.0 [facility] Comment on above: Performed By: #### B MP #### [facility] [address] [place] [address] Dr. Carrington Chandler MONO # 0.6 103/ul Normal 0.3-0.8 [facility] Comment on above: Performed By: #### B MP #### [facility] [address] [place] [address] Dr. Carrington Chandler Monocytes/100 WBC (Bld) 11.8 % Normal 1.7-12.0 [facility] Comment on above: Performed By: #### B MP #### [facility] [address] [address] [address] Carrington Chandler NEUT # 2.6 103/ul Normal 1.4-6.5 [facility] Comment on above: Performed By: #### B MP #### [facility] [address] [address] [address] Carrington Chandler Neutrophils/100 WBC (Bld) 49.2 % Normal 43.0-75.0 [facility] Comment on above: Performed By: #### B MP #### [facility] [address] [address] [address] Carrington Chandler Platelet mean volume (Bld) [Entitic vol] 9.2 fL Critically low 9.5-13.5 [facility] Comment on above: Performed By: #### B MP #### [facility] [address] [address] [address] Carrington Chandler PLT 213 103/ul Normal 150-450 [facility] Comment on above: Performed By: #### B MP #### [facility] [address] [address] [address] Carrington Chandler RBC 4.27 106/ul Critically low 4.70-6.10 [facility] Comment on above: Performed By: #### B MP #### [facility] [id number] Carrington Chandler WBC 5.4 103/ul Normal 4.0-11.0 [facility] Comment on above: Performed By: #### B MP #### [facility] [address] [place] [address] Dr. Carrington Chandler LIPASEon 10-10-2022 Lipase [Catalytic activity/Vol] 212.0 U/L Normal 73.0-393.0 [facility] Comment on above: Performed By: #### A MY, CMP, LIPA #### [facility] [address] [address] [address] Carrington Chandler PROF 14(COMP METB)on 03-18-2 023 Albumin [Mass/Vol] 3.9 g/dL Normal 3.4-5.0 [facility] Comment on above: Performed By: #### A MY, CMP, LIPA #### [facility] [address] [address] [address] Carrington Chandler Albumin/Globulin [Mass ratio] 1.2 {ratio} Normal [facility] Comment on above: Performed By: #### A MY, CMP, LIPA #### [facility] [address] [address] [address] Carrington Chandler ALP [Catalytic activity/Vol] 67 U/L Normal 46-116 [facility] Comment on above: Performed By: #### A MY, CMP, LIPA #### [facility] [address] [place] [address] Dr. Carrington Chandler ALT [Catalytic activity/Vol] 30 U/L Normal 16-63 [facility] Comment on above: Performed By: #### A MY, CMP, LIPA #### [facility] [address] [place] [address] Dr. Carrington Chandler Anion gap [Moles/Vol] 12.8 mmol/L Normal [facility] Comment on above: Performed By: #### A MY, CMP, LIPA #### [facility] [address] [place] [address] Dr. Carrington Chandler AST [Catalytic activity/Vol] 58 U/L Critically high 15-37 [facility] Comment on above: Performed By: #### A MY, CMP, LIPA #### [facility] [address] [place] [address] Dr. Carirngton Chandler Bilirubin [Mass/Vol] 0.3 mg/dL Normal 0.2-1.0 [facility] Comment on above: Performed By: #### A MY, CMP, LIPA #### [facility] [address] [place] [address] Dr. Carrington Chandler Calcium [Mass/Vol] 8.9 mg/dL Normal 8.5-10.1 [facility] Comment on above: Performed By: #### A MY, CMP, LIPA #### [facility] [address] [address] [address] Carrington Chandler Chloride [Moles/Vol] 101 mmol/L Normal 98-107 [facility] Comment on above: Performed By: #### A MY, CMP, LIPA #### [facility] [address] [address] [address] Carrington Chandler CO2 [Moles/Vol] 26.0 mmol/L Normal 21.0-32.0 [facility] Comment on above: Performed By: #### A MY, CMP, LIPA #### [facility] [address] [address] [address] Carrington Chandler Creatinine [Mass/Vol] 0.98 mg/dL Normal 0.70-1.30 [facility] Comment on above: Performed By: #### A MY, CMP, LIPA #### [facility] [address] [place] [address] Dr. Carrington Chandler EGFR-AF CITIZEN OF [place] >60 Normal >=60 [facility] Comment on above: Performed By: #### A MY, CMP, LIPA #### [facility] [address] [place] [address] Dr. Carrington Chandler EGFR-NON AF CITIZEN OF [place] >60 Normal >=60 [facility] Comment on above: Performed By: #### A MY, CMP, LIPA #### [facility] [address] [place] [address] Dr. Carrington Chandler Globulin (S) [Mass/Vol] 3.2 g/dL Normal [facility] Comment on above: Performed By: #### A MY, CMP, LIPA #### [facility] [address] [place] [address] Dr. Carrington Chandler Glucose [Mass/Vol] 101 mg/dL Normal 74-106 [facility] Comment on above: Performed By: #### A MY, CMP, LIPA #### [facility] [address] [place] [address] Dr. Carrington Chandler Potassium [Moles/Vol] 3.8 mmol/L Normal 3.5-5.1 [facility] Comment on above: Performed By: #### A MY, CMP, LIPA #### [facility] [address] [place] [address] Dr. Carrington Chandler Protein [Mass/Vol] 7.1 g/dL Normal 6.4-8.2 [facility] Comment on above: Performed By: #### A MY, CMP, LIPA #### [facility] [address] [place] [address] Dr. Carrington Chandler Sodium [Moles/Vol] 136 mmol/L Normal 136-145 [facility] Comment on above: Performed By: #### A MY, CMP, LIPA #### [facility] [address] [place] [address] Dr. Carrington Chandler Urea nitrogen [Mass/Vol] 19.0 mg/dL Critically high 7.0-18.0 [facility] Comment on above: Performed By: #### A MY, CMP, LIPA #### [facility] [address] [place] [address] Dr. Carrington Chandler Urea nitrogen/Creatinine [Mass ratio] 19.4 mg/mg Normal [facility] Comment on above: Performed By: #### A MY, CMP, LIPA #### [facility] [address] [place] [address] Dr. Carrington Chandler PROTIMEon 10-10-2022 INR Coag (PPP) [Relative time] {INR} Normal [facility] Comment on above: Performed By: #### B MP #### [facility] [address] [place] [address] Dr. Carrington Chandler INR GUIDELINES SEE BELOW Normal [facility] Comment on above: Result Comment: LYNDON RED INR: 2.0 - 3.0 CONDITIONS NOT LISTED BELOW 2.5 - 3.5 FOR PROSTHETIC HEART VALVE REPLACEMENT 2.5 - 3.5 RECURRENT THROMBOSIS Performed By: #### B MP #### [facility] [address] [place] [address] Dr. Carrington Chandler PT Coag (PPP) [Time] 9.7 s Normal 9.0-11.6 [facility] Comment on above: Performed By: #### B MP #### [facility] [address] [place], [place] [address] Dr. Carrington Chandler PTTon 10-10-2022 aPTT Coag (Bld) [Time] 29.5 s Normal 22.3-36.2 [facility] Comment on above: Performed By: #### B MP #### [facility] [address] [place], [place] [address] Dr. Carrington Chandler XR ABD FLAT UP_PA [...] XIOMARA SCHNEIDER Date: 2022-10-10 00:33 Normal [facility] XR knee RT 3Von 09-09-2022 XR knee RT 3V [facility] [employer] Other XR knee RT 3V [facility] [employer] Other XR knee RT 3V [address] [place] [address] [employer] Other XR knee RT 3V [address] [employer] Other XR knee RT 3V XRay Report [employer] Other XR knee RT 3V Signed [place] [employer] Other XR knee RT 3V Patient: Hector Gaspar MR#: [id number] [employer] Other XR knee RT 3V 187 [employer] Other XR knee RT 3V : 1960 Acct:[id number] [employer] Other XR knee RT 3V Age/Sex: 62 / M ADM Date: 09/09/22 [employer] Other XR knee RT 3V Loc: [facility] Room: Type : REG CLI [employer] Other XR knee RT 3V Attending Dr: Wagner Marrufo DO [employer] Other XR knee RT 3V Copies to: Wagner Marrufo DO [employer] Other XR knee RT 3V Ordering Provider: Judy Marrufo DO [employer] Other XR knee RT 3V Date of Service: 09/09/22 [employer] Other XR knee RT 3V XR/XR knee RT 3V - NOT FOR ER USE: Acute pain of right knee [employer] Other XR knee RT 3V RIGHT KNEE - 3 views N [employer] Other XR knee RT 3V CLINICAL HISTORY: Generalized right knee pain for 2 weeks. [employer] Other XR knee RT 3V COMPARISON: None [employer] Other XR knee RT 3V FINDINGS: [employer] Other XR knee RT 3V Small knee joint effusion. Mild degenerative changes without acute bony process. Presumed loose [employer] Other XR knee RT 3V body seen anteriorly within the joint space. [employer] Other XR knee RT 3V X R/XR knee RT 3V - NOT FOR ER USE [employer] Other XR knee RT 3V IMPRESSION: [employer] Other XR knee RT 3V MILD DEGENERATIVE CH ANGES WITHOUT ACUTE BONY PROCESS. [employer] Other XR knee RT 3V Impression dictated by: Parrish Layton Jr., D.O.09/09/2022 3:40 PM [employer] Other XR knee RT 3V Dictation Location: [place] [address] [employer] Other XR knee RT 3V Transcribed By: PWS 09/09/22 1540 [employer] Other XR knee RT 3V Dictated By: Parrish Layton Jr DO 09/09/22 1539 [employer] Other XR knee RT 3V Signed By: [employer] Other XR knee RT 3V 09/09/22 1540 [employer] Other CBC AUTO DIFFon 09-08-2022 BASO # 0.0 103/ul Normal 0.0-0.1 [facility] Comment on above: Performed By: #### C BC #### [facility] [address] [place] [address] Dr. Carrington Chandler Basophils/100 WBC (Bld) 0.4 % Normal 0.2-2.0 [facility] Comment on above: Performed By: #### C BC #### [facility] [address] [place] [address] Dr. Carrington Chandler EO # 0.3 103/ul Normal 0.0-0.7 [facility] Comment on above: Performed By: #### C BC #### [facility] [address] [address] [address] Carrington Chandler Eosinophils/100 WBC (Bld) 4.9 % Normal 0.9-7.0 [facility] Comment on above: Performed By: #### C BC #### [facility] [address] [place] [address] Dr. Carrington Chandler Erythrocyte distribution width (RBC) [Ratio] 14.0 % Normal 11.0-15.0 [facility] Comment on above: Performed By: #### C BC #### [facility] [address] [place] [address] Dr. Carrington Chandler Hematocrit (Bld) [Volume fraction] 36.9 % Critically low 42.0-54.0 [facility] Comment on above: Performed By: #### C BC #### [facility] [address] [place] [address] Dr. Carrington Chandler Hemoglobin (Bld) [Mass/Vol] 12.2 g/dL Critically low 14.0-18.0 [facility] Comment on above: Performed By: #### C BC #### [facility] [address] [place] [address] Dr. Carrington Chandler IG # 0.01 10e3/ul Normal 0.00-0.03 [facility] Comment on above: Performed By: #### C BC #### [facility] [address] [place] [address] Dr. Carrington Chandler IG % 0.2 % Normal 0.0-0.5 [facility] Comment on above: Performed By: #### C BC #### [facility] [address] [place] [address] Dr. Carrington Chandler LYMPH # 1.7 103/ul Normal 1.2-3.8 [facility] Comment on above: Performed By: #### C BC #### [facility] [address] [place] [address] Dr. Carrington Chandler Lymphocytes/100 WBC (Bld) 30.6 % Normal 20.5-60.0 [facility] Comment on above: Performed By: #### C BC #### [facility] [address] [place] [address] Dr. Carrington Chandler MANUAL DIFF REQ NO Normal [facility] Comment on above: Performed By: #### C BC #### [facility] [address] [place] [address] Dr. Carrington Chandler MCH (RBC) [Entitic mass] 30.3 pg Normal 25.9-34.0 [facility] Comment on above: Performed By: #### C BC #### [facility] [address] [address] [address] Carrington Chandler MCHC (RBC) [Mass/Vol] 33.1 g/dL Normal 29.9-35.2 [facility] Comment on above: Performed By: #### C BC #### [facility] [address] [address] [address] Carrington Chandler MCV (RBC) [Entitic vol] 91.6 fL Normal 80.0-94.0 [facility] Comment on above: Performed By: #### C BC #### [facility] [address] [address] [address] Carrington Chandler MONO # 0.6 103/ul Normal 0.3-0.8 [facility] Comment on above: Performed By: #### C BC #### [facility] [address] [address] [address] Carrington Chandler Monocytes/100 WBC (Bld) 9.9 % Normal 1.7-12.0 [facility] Comment on above: Performed By: #### C BC #### [facility] [address] [address] [address] Carrington Chandler NEUT # 3.0 103/ul Normal 1.4-6.5 [facility] Comment on above: Performed By: #### C BC #### [facility] [address] [address] [address] Carrington Chandler Neutrophils/100 WBC (Bld) 54.0 % Normal 43.0-75.0 [facility] Comment on above: Performed By: #### C BC #### [facility] [address] [address] [address] Carrington Chandler Platelet mean volume (Bld) [Entitic vol] 8.9 fL Critically low 9.5-13.5 [facility] Comment on above: Performed By: #### C BC #### [facility] [address] [address] [address] Carrington Chandler PLT 189 103/ul Normal 150-450 [facility] Comment on above: Performed By: #### C BC #### [facility] [address] [address] [address] Carrington Chandler RBC 4.03 106/ul Critically low 4.70-6.10 [facility] Comment on above: Performed By: #### C BC #### [facility] [address] [address] [address] Carrington Chandler WBC 5.5 103/ul Normal 4.0-11.0 [facility] Comment on above: Performed By: #### C BC #### [facility] [address] [address] [address] Carrington Chandler CRPon 09-08-2022 CRP 0.5 mg/dL Normal <=1.0 [facility] Comment on above: Performed By: #### A MY, CMP, LIPA #### [facility] [address] [place] [address] Dr. Carrington Chandler PROF CHEM 8 (BAS METB)on Anion gap [Moles/Vol] 12.7 mmol/L Normal [facility] Comment on above: Performed By: #### A MY, CMP, LIPA #### [facility] [address] [place] [address] Dr. Carrington Chandler Calcium [Mass/Vol] 8.6 mg/dL Normal 8.5-10.1 [facility] Comment on above: Performed By: #### A MY, CMP, LIPA #### [facility] [address] [address] [address] Carrington Chandler Chloride [Moles/Vol] 102 mmol/L Normal 98-107 [facility] Comment on above: Performed By: #### A MY, CMP, LIPA #### [facility] [address] [place] [address] Dr. Carrington Chandler CO2 [Moles/Vol] 27.2 mmol/L Normal 21.0-32.0 [facility] Comment on above: Performed By: #### A MY, CMP, LIPA #### [facility] [address] [place] [address] Dr. Carrington Cahndler Creatinine [Mass/Vol] 1.11 mg/dL Normal 0.70-1.30 [facility] Comment on above: Performed By: #### A MY, CMP, LIPA #### [facility] [address] [address] [address] Carrington Chandler EGFR-AF [place]IZ[place] >60 Normal >=60 [facility] Comment on above: Performed By: #### A MY, CMP, LIPA #### [facility] [address] [address] [address] Carrington Chandler EGFR-NON AF [place]IZ[place] OF [place] >60 Normal >=60 [facility] Comment on above: Performed By: #### A MY, CMP, LIPA #### [facility] [address] [address] [address] Carrington Chandler Glucose [Mass/Vol] 132 mg/dL Critically high 74-106 [facility] Comment on above: Performed By: #### A MY, CMP, LIPA #### [facility] [address] [address] [address] Carrington Chandler Potassium [Moles/Vol] 3.9 mmol/L Normal 3.5-5.1 [facility] Comment on above: Performed By: #### A MY, CMP, LIPA #### [facility] [address] [address] [address] Carrington Chandler Sodium [Moles/Vol] 138 mmol/L Normal 136-145 [facility] Comment on above: Performed By: #### A MY, CMP, LIPA #### [facility] [address] [place] [address] Dr. Carrington Chandler Urea nitrogen [Mass/Vol] 18.0 mg/dL Normal 7.0-18.0 [facility] Comment on above: Performed By: #### A MY, CMP, LIPA #### [facility] [address] [place] [address] Dr. Carrington Chandler Urea nitrogen/Creatinine [Mass ratio] 16.2 mg/mg Normal [facility] Comment on above: Performed By: #### A MY, CMP, LIPA #### [facility] [address] [address] [address] Carrington Chandler US [place] DOP LEG [...] CYNTHIA VASQUEZ Date: 2022-09-07 22:52 Normal [facility] HEMOGLOBINon 08-10-2022 Hemoglobin (Bld) [Mass/Vol] 13.3 g/dL Critically low 14.0-18.0 [facility] Comment on above: Performed By: #### B MP #### [facility] [address] [place] [address] Dr. Carrington Chandler CBC W MANUAL DIFFon 07-11-20 22 ATYPICAL LYMPH # 0.65 103/ul Normal [facility] Comment on above: Performed By: #### A MY, CMP, LIPA #### [facility] [address] [place] [address] Dr. Carrington Chandler ATYPICAL LYMPH % 11 % Normal [facility] Comment on above: Performed By: #### A MY, CMP, LIPA #### [facility] [address] [place] [address] Dr. Carrington Chandler BAND # 0.0 103/ul Normal 0.0-0.3 [facility] Comment on above: Performed By: #### A MY, CMP, LIPA #### [facility] [address] [place] [address] Dr. Carrington Chandler BAND % 0 % Normal 0-5 [facility] Comment on above: Performed By: #### A MY, CMP, LIPA #### [facility] [address] [place] [address] Dr. Carrington Chandler BASOM # 0.00 103/ul Normal 0.00-0.10 [facility] Comment on above: Performed By: #### A MY, CMP, LIPA #### [facility] [address] [place] [address] Dr. Carrington Chandler BASOM % 0.0 % Critically low 0.2-2.0 [facility] Comment on above: Performed By: #### A MY, CMP, LIPA #### [facility] [address] [place] [address] Dr. Carrington Chandler BLAST # Normal [facility] Comment on above: Performed By: #### A MY, CMP, LIPA #### [facility] [address] [place] [address] Dr. Carrington Chandler BLAST % Normal [facility] Comment on above: Performed By: #### A MY, CMP, LIPA #### [facility] [address] [place] [address] Dr. Carrington Chandler CORRECTED WBC Normal 4.0-11.0 [facility] Comment on above: Performed By: #### A MY, CMP, LIPA #### [facility] [address] [place] [address] Dr. Carrington Chandler EOS # 0.00 103/ul Normal 0.00-0.70 [facility] Comment on above: Performed By: #### A MY, CMP, LIPA #### [facility] [address] [place] [address] Dr. Carrington Chandler EOS% 0.0 % Critically low 0.9-7.[address] [facility] Comment on above: Performed By: #### A MY, CMP, LIPA #### [facility] [address] [place] [address] Dr. Carrington Chandler HCT 34.7 % Critically low 42.0-54.0 [facility] Comment on above: Performed By: #### A MY, CMP, LIPA #### [facility] [address] [address] [address] Carrington Chandler HGB 11.7 g/dl Critically low 14.0-18.0 [facility] Comment on above: Performed By: #### A MY, CMP, LIPA #### [facility] [address] [address] [address] Carrington Chandler LYMPHM # 0.12 103/ul Critically low 1.20-3.80 [facility] Comment on above: Performed By: #### A MY, CMP, LIPA #### [facility] [address] [place] [address] Dr. Carrington Chandler LYMPHM% 2.0 % Critically low 20.5-60.0 [facility] Comment on above: Performed By: #### A MY, CMP, LIPA #### [facility] [address] [place] [address] Dr. Carrington Chandler MCH 29.9 pg Normal 25.9-34.0 [facility] Comment on above: Performed By: #### A MY, CMP, LIPA #### [facility] [address] [place] [address] Dr. Carrington Chandler MCHC 33.7 g/dl Normal 29.9-35.2 [facility] Comment on above: Performed By: #### A MY, CMP, LIPA #### [facility] [address] [place] [address] Dr. Carrington Chandler MCV 88.7 fL Normal 80.0-94.0 [facility] Comment on above: Performed By: #### A MY, CMP, LIPA #### [facility] [address] [place] [address] Dr. Carrington Chandler METAMYELOCYTE # Normal [facility] Comment on above: Performed By: #### A MY, CMP, LIPA #### [facility] [address] [place] [address] Dr. Carrington Chandler METAMYELOCYTE % Normal [facility] Comment on above: Performed By: #### A MY, CMP, LIPA #### [facility] [address] [address] [address] Carrington Chandler MONOM# 0.00 103/ul Critically low 0.30-0.80 [facility] Comment on above: Performed By: #### A MY, CMP, LIPA #### [facility] [address] [address] [address] Carrington Chandler MONOM% 0.0 % Critically low 1.7-12.0 [facility] Comment on above: Performed By: #### A MY, CMP, LIPA #### [facility] [address] [address] [address] Carrington Chandler MPV 9.4 fL Critically low 9.5-13.5 [facility] Comment on above: Performed By: #### A MY, CMP, LIPA #### [facility] [address] [place] [address] Dr. Carrington Chandler MYELOCYTE # Normal [facility] Comment on above: Performed By: #### A MY, CMP, LIPA #### [facility] [address] [place] [address] Dr. Carrington Chandler MYELOCYTE % Normal [facility] Comment on above: Performed By: #### A MY, CMP, LIPA #### [facility] [address] [place] [address] Dr. Carrington Chandler NRBC Normal [facility] Comment on above: Performed By: #### A MY, CMP, LIPA #### [facility] [address] [place] [address] Dr. Carrington Chandler PLT 160 103/ul Normal 150-450 [facility] Comment on above: Performed By: #### A MY, CMP, LIPA #### [facility] [address] [place] [address] Dr. Carrington Chandler RBC 3.91 106/ul Critically low 4.70-6.10 [facility] Comment on above: Performed By: #### A MY, CMP, LIPA #### [facility] [address] [place] [address] Dr. Carrington Chandler RDW 12.4 % Normal 11.0-15.0 [facility] Comment on above: Performed By: #### A MY, CMP, LIPA #### [facility] [address] [address] [address] Carrington Chandler SEG # 5.13 103/ul Normal 1.40-6.50 [facility] Comment on above: Performed By: #### A MY, CMP, LIPA #### [facility] [address] [address] [address] Carrington Chandler SEG % 87.0 % Critically high 43.0-75.0 [facility] Comment on above: Performed By: #### A MY, CMP, LIPA #### [facility] [address] [place] [address] Dr. Carrington Chandler WBC 5.9 103/ul Normal 4.0-11.0 [facility] Comment on above: Performed By: #### A MY, CMP, LIPA #### [facility] [address] [place] [address] Dr. Carrington Chandler PROF 14(COMP METB)on 022 Albumin [Mass/Vol] 3.0 g/dL Critically low 3.4-5.0 [facility] Comment on above: Performed By: #### C MP #### [facility] [address] [place] [address] Dr. Carrington Chandler Albumin/Globulin [Mass ratio] 0.9 {ratio} Normal [facility] Comment on above: Performed By: #### C MP #### [facility] [address] [place] [address] Dr. Carrington Chandler ALP [Catalytic activity/Vol] 56 U/L Normal 46-116 [facility] Comment on above: Performed By: #### C MP #### [facility] [address] [place] [address] Dr. Carrington Chandler ALT [Catalytic activity/Vol] 21 U/L Normal 16-63 [facility] Comment on above: Performed By: #### C MP #### [facility] [address] [address] [address] Carrington Chandler Anion gap [Moles/Vol] 12.9 mmol/L Normal [facility] Comment on above: Performed By: #### C MP #### [facility] [address] [address] [address] Carrington Chandler AST [Catalytic activity/Vol] 15 U/L Normal 15-37 [facility] Comment on above: Performed By: #### C MP #### [facility] [address] [address] [address] Carrington Chandler Bilirubin [Mass/Vol] 0.2 mg/dL Normal 0.2-1.0 [facility] Comment on above: Performed By: #### C MP #### [facility] [address] [place] [address] Dr. Carrington Chandler Calcium [Mass/Vol] 8.1 mg/dL Critically low 8.5-10.1 [facility] Comment on above: Performed By: #### C MP #### [facility] [address] [place] [address] Dr. Carrington Chandler Chloride [Moles/Vol] 104 mmol/L Normal 98-107 [facility] Comment on above: Performed By: #### C MP #### [facility] [address] [place] [address] Dr. Carrington Chandler CO2 [Moles/Vol] 24.6 mmol/L Normal 21.0-32.0 [facility] Comment on above: Performed By: #### C MP #### [facility] [address] [place] [address] Dr. Carrington Chandler Creatinine [Mass/Vol] 0.88 mg/dL Normal 0.70-1.30 [facility] Comment on above: Performed By: #### C MP #### [facility] [address] [place] [address] Dr. Carrington Chandler EGFR-AF [place]IZ[place] >60 Normal >=60 [facility] Comment on above: Performed By: #### C MP #### [facility] [address] [place] [address] Dr. Carrington Chandler EGFR-NON AF [place]IZEN OF [place] >60 Normal >=60 [facility] Comment on above: Performed By: #### C MP #### [facility] [address] [address] [address] Carrington Chandler Globulin (S) [Mass/Vol] 3.3 g/dL Normal [facility] Comment on above: Performed By: #### C MP #### [facility] [address] [address] [address] Carrington Chandler Glucose [Mass/Vol] 174 mg/dL Critically high 74-106 [facility] Comment on above: Performed By: #### C MP #### [facility] [address] [place] [address] Dr. Carrington Chandler Potassium [Moles/Vol] 3.5 mmol/L Normal 3.5-5.1 [facility] Comment on above: Performed By: #### C MP #### [facility] [address] [place] [address] Dr. Carrington Chandler Protein [Mass/Vol] 6.3 g/dL Critically low 6.4-8.2 [facility] Comment on above: Performed By: #### C MP #### [facility] [address] [place] [address] Dr. Carrington Chandler Sodium [Moles/Vol] 138 mmol/L Normal 136-145 [facility] Comment on above: Performed By: #### C MP #### [facility] [address] [place] [address] [address] Carrington Chandler Urea nitrogen [Mass/Vol] 17.0 mg/dL Normal 7.0-18.0 [facility] Comment on above: Performed By: #### C MP #### [facility] [address] [place] [address] [address] Carrington Chandler Urea nitrogen/Creatinine [Mass ratio] 19.3 mg/mg Normal [facility] Comment on above: Performed By: #### C MP #### [facility] [address] [place] [address] Dr. Carrington Chandler CBC AUTO DIFFon 07-10-2022 BASO # 0.0 103/ul Normal 0.0-0.1 [facility] Comment on above: Performed By: #### B MP #### [facility] [address] [place] [address] [address] Carrington Chandler Basophils/100 WBC (Bld) 0.2 % Normal 0.2-2.0 [facility] Comment on above: Performed By: #### B MP #### [facility] [address] [place] [address] [address] Carrington Chandler EO # 0.1 103/ul Normal 0.0-0.7 [facility] Comment on above: Performed By: #### B MP #### [facility] [address] [place] [place] [address] [address] Carrington Chandler Eosinophils/100 WBC (Bld) 2.3 % Normal 0.9-7.0 [facility] Comment on above: Performed By: #### B MP #### [facility] [address] [place] [address] Dr. Carrington Chandler Erythrocyte distribution width (RBC) [Ratio] 12.5 % Normal 11.0-15.0 [facility] Comment on above: Performed By: #### B MP #### [facility] [address] [place] [address] Dr. Carrington Chandler Hematocrit (Bld) [Volume fraction] 36.8 % Critically low 42.0-54.0 [facility] Comment on above: Performed By: #### B MP #### [facility] [address] [place] [address] Dr. Carrington Chandler Hemoglobin (Bld) [Mass/Vol] 12.3 g/dL Critically low 14.0-18.0 [facility] Comment on above: Performed By: #### B MP #### [facility] [address] [place] [address] Dr. Carrington Chandler IG # 0.01 10e3/ul Normal 0.00-0.03 [facility] Comment on above: Performed By: #### B MP #### [facility] [address] [place] [address] Dr. Carrington Chandler IG % 0.2 % Normal 0.0-0.5 [facility] Comment on above: Performed By: #### B MP #### [facility] [address] [place] [address] [address] Carrington Chandler LYMPH # 1.5 103/ul Normal 1.2-3.8 [facility] Comment on above: Performed By: #### B MP #### [facility] [address] [place] [address] [address] Carrington Chandler Lymphocytes/100 WBC (Bld) 34.7 % Normal 20.5-60.0 [facility] Comment on above: Performed By: #### B MP #### [facility] [address] [place] [address] Dr. Carrington Chandler MANUAL DIFF REQ NO Normal [facility] Comment on above: Performed By: #### B MP #### [facility] [address] [place] [address] Dr. Carrington Chandler MCH (RBC) [Entitic mass] 29.8 pg Normal 25.9-34.0 [facility] Comment on above: Performed By: #### B MP #### [facility] [address] [place] [address] Dr. Carrington Chandler MCHC (RBC) [Mass/Vol] 33.4 g/dL Normal 29.9-35.2 [facility] Comment on above: Performed By: #### B MP #### [facility] [address] [place] [address] Dr. Carrington Chandler MCV (RBC) [Entitic vol] 89.1 fL Normal 80.0-94.0 [facility] Comment on above: Performed By: #### B MP #### [facility] [address] [place] [address] Dr. Carrington Chandler MONO # 0.5 103/ul Normal 0.3-0.8 [facility] Comment on above: Performed By: #### B MP #### [facility] [address] [place] [address] Dr. Carrington Chandler Monocytes/100 WBC (Bld) 11.0 % Normal 1.7-12.0 [facility] Comment on above: Performed By: #### B MP #### [facility] [address] [place] [address] [address] Carrington Chandler NEUT # 2.2 103/ul Normal 1.4-6.5 [facility] Comment on above: Performed By: #### B MP #### [facility] [address] [place] [address] [address] Carrington Chandler Neutrophils/100 WBC (Bld) 51.6 % Normal 43.0-75.0 [facility] Comment on above: Performed By: #### B MP #### [facility] [address] [place] [address] Dr. Carrington Chandler Platelet mean volume (Bld) [Entitic vol] 9.0 fL Critically low 9.5-13.5 [facility] Comment on above: Performed By: #### B MP #### [facility] [address] [place] [address] Dr. Carrington Chandler PLT 147 103/ul Critically low 150-450 [facility] Comment on above: Performed By: #### B MP #### [facility] [address] [place] [address] Dr. Carrington Chnadler RBC 4.13 106/ul Critically low 4.70-6.10 [facility] Comment on above: Performed By: #### B MP #### [facility] [address] [place] [address] Dr. Carrington Chandler WBC 4.4 103/ul Normal 4.0-11.0 [facility] Comment on above: Performed By: #### B MP #### [facility] [address] [place] [address] Dr. Carrington Chandler CULTURE SPUTUMon 07-10-2022 CULTURE SPUTUM Culture Observations : NORMAL RESPIRATORY SANDY. Normal [facility] Comment on above: Performed By: #### C MP #### [facility] [address] [place] [address] Dr. Carrington Chandler MAGNESIUMon 07-10-2022 Magnesium [Mass/Vol] 2.0 mg/dL Normal 1.8-2.4 [facility] Comment on above: Performed By: #### C MP #### [facility] [address] [place] [address] [address] Carrington Chandler PROF 14(COMP METB)on 022 Albumin [Mass/Vol] 2.8 g/dL Critically low 3.4-5.0 [facility] Comment on above: Performed By: #### B MP #### [facility] [address] [place] [address] Dr. Carrington Chandler Albumin/Globulin [Mass ratio] 0.8 {ratio} Normal [facility] Comment on above: Performed By: #### B MP #### [facility] [address] [place] [address] Dr. Carrington Chandler ALP [Catalytic activity/Vol] 55 U/L Normal 46-116 [facility] Comment on above: Performed By: #### B MP #### [facility] [address] [place] [address] Dr. Carrington Chandler ALT [Catalytic activity/Vol] 22 U/L Normal 16-63 [facility] Comment on above: Performed By: #### B MP #### [facility] [address] [place] [address] Dr. Carrington Chandler Anion gap [Moles/Vol] 10.3 mmol/L Normal [facility] Comment on above: Performed By: #### B MP #### [facility] [address] [place] [address] Dr. Carrington Chandler AST [Catalytic activity/Vol] 22 U/L Normal 15-37 [facility] Comment on above: Performed By: #### B MP #### [facility] [address] [place] [address] Dr. Carrington Chandler Bilirubin [Mass/Vol] 0.2 mg/dL Normal 0.2-1.0 [facility] Comment on above: Performed By: #### B MP #### [facility] [address] [place] [address] Dr. Carrington Chandler Calcium [Mass/Vol] 8.0 mg/dL Critically low 8.5-10.1 [facility] Comment on above: Performed By: #### B MP #### [facility] [address] [place] [address] [address] aCrrington Chandler Chloride [Moles/Vol] 105 mmol/L Normal 98-107 [facility] Comment on above: Performed By: #### B MP #### [facility] [address] [place] [address] [address] Carrington Chandler CO2 [Moles/Vol] 28.1 mmol/L Normal 21.0-32.0 [facility] Comment on above: Performed By: #### B MP #### [facility] [address] [place] [address] Dr. Carrington Chandler Creatinine [Mass/Vol] 0.89 mg/dL Normal 0.70-1.30 [facility] Comment on above: Performed By: #### B MP #### [facility] [address] [place] [address] Dr. Carrington Chandler EGFR-AF [place]IZ[place] >60 Normal >=60 [facility] Comment on above: Performed By: #### B MP #### [facility] [address] [place] [address] Dr. Carrington Chandler EGFR-NON AF CITIZEN OF [place] >60 Normal >=60 [facility] Comment on above: Performed By: #### B MP #### [facility] [address] [place] [address] Dr. Carrington Chandler Globulin (S) [Mass/Vol] 3.7 g/dL Normal [facility] Comment on above: Performed By: #### B MP #### [facility] [address] [place] [address] [address] Carrington Chandler Glucose [Mass/Vol] 124 mg/dL Critically high 74-106 [facility] Comment on above: Performed By: #### B MP #### [facility] [address] [place] [address] Dr. Carrington Chandler Potassium [Moles/Vol] 3.4 mmol/L Critically low 3.5-5.1 [facility] Comment on above: Performed By: #### B MP #### [facility] [address] [place] [address] Dr. Carrington Chandler Protein [Mass/Vol] 6.5 g/dL Normal 6.4-8.2 [facility] Comment on above: Performed By: #### B MP #### [facility] [address] [place] [address] Dr. Carrington Chandler Sodium [Moles/Vol] 140 mmol/L Normal 136-145 [facility] Comment on above: Performed By: #### B MP #### [facility] [address] [place] [address] Dr. Carrington Chandler Urea nitrogen [Mass/Vol] 15.0 mg/dL Normal 7.0-18.0 [facility] Comment on above: Performed By: #### B MP #### [facility] [address] [place] [address] Dr. Carrington Chandler Urea nitrogen/Creatinine [Mass ratio] 16.9 mg/mg Normal [facility] Comment on above: Performed By: #### B MP #### [facility] [address] [place] [address] Dr. Carrington Chandler CBC AUTO DIFFon 07-09-2022 BASO # 0.0 103/ul Normal 0.0-0.1 [facility] Comment on above: Performed By: #### A MY, CMP, LIPA #### [facility] [address] [place] [address] Dr. Carrington Chandler Basophils/100 WBC (Bld) 0.2 % Normal 0.2-2.0 [facility] Comment on above: Performed By: #### A MY, CMP, LIPA #### [facility] [address] [place] [address] Dr. Carrington Chandler EO # 0.1 103/ul Normal 0.0-0.7 [facility] Comment on above: Performed By: #### A MY, CMP, LIPA #### [facility] [address] [place] [address] Dr. Carrington Chandler Eosinophils/100 WBC (Bld) 1.9 % Normal 0.9-7.0 [facility] Comment on above: Performed By: #### A MY, CMP, LIPA #### [facility] [address] [place] [address] Dr. Carrington Chandler Erythrocyte distribution width (RBC) [Ratio] 12.6 % Normal 11.0-15.0 [facility] Comment on above: Performed By: #### A MY, CMP, LIPA #### [facility] [address] [place] [address] Dr. Carrington Chandler Hematocrit (Bld) [Volume fraction] 38.8 % Critically low 42.0-54.0 [facility] Comment on above: Performed By: #### A MY, CMP, LIPA #### [facility] [address] [place] [address] Dr. Carrington Chandler Hemoglobin (Bld) [Mass/Vol] 12.9 g/dL Critically low 14.0-18.0 [facility] Comment on above: Performed By: #### A MY, CMP, LIPA #### [facility] [address] [place] [address] Dr. Carrington Chandler IG # 0.01 10e3/ul Normal 0.00-0.03 [facility] Comment on above: Performed By: #### A MY, CMP, LIPA #### [facility] [address] [place] [address] Dr. Carrington Chandler IG % 0.2 % Normal 0.0-0.5 [facility] Comment on above: Performed By: #### A MY, CMP, LIPA #### [facility] [address] [place] [address] Dr. Carrington Chandler LYMPH # 1.7 103/ul Normal 1.2-3.8 [facility] Comment on above: Performed By: #### A MY, CMP, LIPA #### [facility] [address] [place] [address] Dr. Carrington Chandler Lymphocytes/100 WBC (Bld) 34.7 % Normal 20.5-60.0 [facility] Comment on above: Performed By: #### A MY, CMP, LIPA #### [facility] [address] [place] [address] Dr. Carrington Chandler MANUAL DIFF REQ NO Normal [facility] Comment on above: Performed By: #### A MY, CMP, LIPA #### [facility] [address] [place] [address] Dr. Carrington Chandler MCH (RBC) [Entitic mass] 29.9 pg Normal 25.9-34.0 [facility] Comment on above: Performed By: #### A MY, CMP, LIPA #### [facility] [address] [place] [address] Dr. Carrington Chandler MCHC (RBC) [Mass/Vol] 33.2 g/dL Normal 29.9-35.2 [facility] Comment on above: Performed By: #### A MY, CMP, LIPA #### [facility] [address] [place] [address] Dr. Carrington Chandler MCV (RBC) [Entitic vol] 90.0 fL Normal 80.0-94.0 [facility] Comment on above: Performed By: #### A MY, CMP, LIPA #### [facility] [address] [place] [address] Dr. Carrington Chandler MONO # 0.5 103/ul Normal 0.3-0.8 [facility] Comment on above: Performed By: #### A MY, CMP, LIPA #### [facility] [address] [place] [address] Dr. Carrington Chandler Monocytes/100 WBC (Bld) 10.4 % Normal 1.7-12.0 [facility] Comment on above: Performed By: #### A MY, CMP, LIPA #### [facility] [address] [place] [address] Dr. Carrington Chandler NEUT # 2.5 103/ul Normal 1.4-6.5 [facility] Comment on above: Performed By: #### A MY, CMP, LIPA #### [facility] [address] [place] [address] Dr. Carrington Chandler Neutrophils/100 WBC (Bld) 52.6 % Normal 43.0-75.0 [facility] Comment on above: Performed By: #### A MY, CMP, LIPA #### [facility] [address] [place] [address] [address] Carrington Chandler Platelet mean volume (Bld) [Entitic vol] 9.0 fL Critically low 9.5-13.5 [facility] Comment on above: Performed By: #### A MY, CMP, LIPA #### [facility] [address] [place] [place] [address] [address] Carrington Chandler PLT 155 103/ul Normal 150-450 [facility] Comment on above: Performed By: #### A MY, CMP, LIPA #### [facility] [address] [place] [address] [address] Carrington Chandler RBC 4.31 106/ul Critically low 4.70-6.10 [facility] Comment on above: Performed By: #### A MY, CMP, LIPA #### [facility] [address] [place] [address] [address] Carrington Chandler WBC 4.8 103/ul Normal 4.0-11.0 [facility] Comment on above: Performed By: #### A MY, CMP, LIPA #### [facility] [address] [place] [address] [address] Carrington Chandler Covid-19 PCR ([facility])on 06-25 SARS-CoV-2 (COVID-19) RNA CHARLIE+probe Ql (Unsp spec) Not detected Normal NOT DETECTED [facility] Comment on above: Result Comment: When [...] for this test is supported by the [employer] of [employer] and [employer]'s declaration that [...] used). Performed By: #### C MP #### [facility] [address] [place] [address] [address] Carrington Chandler ER URINE PROFILEon 2 Bilirubin Ql (U) Negative Normal NEGATIVE [facility] Comment on above: Performed By: #### C MP #### [facility] [address] [place] [address] Dr. Carrington Chandler Clarity (U) CLEAR Normal CLEAR [facility] Comment on above: Performed By: #### C MP #### [facility] [address] [place] [address] [address] Carrington Chandler Color (U) LT. YELLOW Normal YELLOW [facility] Comment on above: Performed By: #### C MP #### [facility] [address] [place] [address] Dr. Carrington Chandler ERUAHD A micrscopic examina tion will be performed if indicated. Normal [facility] Comment on above: Performed By: #### C MP #### [facility] [address] [place] [address] Dr. Carrington Chandler Glucose Ql (U) Negative Normal NEGATIVE [facility] Comment on above: Performed By: #### C MP #### [facility] [address] [place] [address] Dr. Carrington Chandler Hemoglobin Ql (U) Negative Normal NEGATIVE [facility] Comment on above: Performed By: #### C MP #### [facility] [address] [place] [address] Dr. Carrington Chandler Ketones Ql (U) Negative Normal NEGATIVE [facility] Comment on above: Performed By: #### C MP #### [facility] [address] [place] [address] Dr. Carrington Chandler LEUKOCYTES Negative Normal NEGATIVE [facility] Comment on above: Performed By: #### C MP #### [facility] [address] [place] [address] Dr. Carrington Chandler Nitrite Ql (U) Negative Normal NEGATIVE [facility] Comment on above: Performed By: #### C MP #### [facility] [address] [place] [address] [address] Carrington Chandler pH (U) 6.0 [pH] Normal 5-9 [facility] Comment on above: Performed By: #### C MP #### [facility] [address] [place] [address] [address] Carrington Chandler SPEC GRAVITY 1.010 Normal 1.005-<=1. 025 [facility] Comment on above: Performed By: #### C MP #### [facility] [address] [place] [address] [address] Carrington Chandler UA PROTEIN Negative Normal NEGATIVE/ TRACE [facility] Comment on above: Performed By: #### C MP #### [facility] [address] [place] [address] Dr. Carrington Chandler UR MICRO IND NOT INDICATED Normal [facility] Comment on above: Performed By: #### C MP #### [facility] [address] [place] [address] [address] Carrington Chandler Urobilinogen Qn (U) 0.2 {Lars'U}/dL Normal 0.2 - 1. 0 [facility] Comment on above: Performed By: #### C MP #### [facility] [address] [place] [address] Dr. Carrington Chandler PROF CHEM 8 (BAS METB)on Anion gap [Moles/Vol] 6.6 mmol/L Normal [facility] Comment on above: Performed By: #### B MP #### [facility] [address] [place] [address] Dr. Carrington Chandler Calcium [Mass/Vol] 8.2 mg/dL Critically low 8.5-10.1 [facility] Comment on above: Performed By: #### B MP #### [facility] [address] [place] [address] Dr. Carrington Chandler Chloride [Moles/Vol] 102 mmol/L Normal 98-107 [facility] Comment on above: Performed By: #### B MP #### [facility] [address] [place] [address] [address] Carrington Chandler CO2 [Moles/Vol] 31.2 mmol/L Normal 21.0-32.0 [facility] Comment on above: Performed By: #### B MP #### [facility] [address] [place] [address] [address] Carrington Chandler Creatinine [Mass/Vol] 0.90 mg/dL Normal 0.70-1.30 [facility] Comment on above: Performed By: #### B MP #### [facility] [address] [place] [address] [address] Carrington Chandler EGFR-AF [place]IZ[place] >60 Normal >=60 [facility] Comment on above: Performed By: #### B MP #### [facility] [address] [place] [address] Dr. Carrington Chandler EGFR-NON AF [place]IZ[place] OF [place] >60 Normal >=60 [facility] Comment on above: Performed By: #### B MP #### [facility] [address] [place] [address] Dr. Carrington Chandler Glucose [Mass/Vol] 100 mg/dL Normal 74-106 [facility] Comment on above: Performed By: #### B MP #### [facility] [address] [place] [address] Dr. Carrington Chandler Potassium [Moles/Vol] 3.8 mmol/L Normal 3.5-5.1 [facility] Comment on above: Performed By: #### B MP #### [facility] [address] [place] [address] [address] Carrington Chandler Sodium [Moles/Vol] 136 mmol/L Normal 136-145 [facility] Comment on above: Performed By: #### B MP #### [facility] [address] [place] [address] Dr. Carrington Chandler Urea nitrogen [Mass/Vol] 16.0 mg/dL Normal 7.0-18.0 [facility] Comment on above: Performed By: #### B MP #### [facility] [address] [place] [address] Dr. Carrington Chandler Urea nitrogen/Creatinine [Mass ratio] 17.8 mg/mg Normal [facility] Comment on above: Performed By: #### B MP #### [facility] [address] [place] [address] Dr. Carrington Chandler XR CHEST 1 Von [...] TEE LEWIS Date: 2022-07-09 20:51 Normal [facility] AMYLASEon 07-08-2022 Amylase [Catalytic activity/Vol] 40 U/L Normal 25-115 [facility] Comment on above: Performed By: #### A MY, CMP, LIPA #### [facility] [address] [place] [address] Dr. Carrington Chandler CBC AUTO DIFFon 07-08-2022 BASO # 0.0 103/ul Normal 0.0-0.1 [facility] Comment on above: Performed By: #### C BC #### [facility] [address] [place] [address] Dr. Carrington Chandler Basophils/100 WBC (Bld) 0.3 % Normal 0.2-2.0 [facility] Comment on above: Performed By: #### C BC #### [facility] [address] [place] [address] Dr. Carrington Chandler EO # 0.1 103/ul Normal 0.0-0.7 [facility] Comment on above: Performed By: #### C BC #### [facility] [address] [place] [address] Dr. Carrington Chandler Eosinophils/100 WBC (Bld) 1.2 % Normal 0.9-7.0 [facility] Comment on above: Performed By: #### C BC #### [facility] [address] [place] [address] Dr. Carrington Chandler Erythrocyte distribution width (RBC) [Ratio] 12.9 % Normal 11.0-15.0 [facility] Comment on above: Performed By: #### C BC #### [facility] [address] [place] [address] Dr. Carrington Chandler Hematocrit (Bld) [Volume fraction] 43.2 % Normal 42.0-54.0 [facility] Comment on above: Performed By: #### C BC #### [facility] [address] [place] [address] Dr. Carrington Cahndler Hemoglobin (Bld) [Mass/Vol] 14.4 g/dL Normal 14.0-18.0 [facility] Comment on above: Performed By: #### C BC #### [facility] [address] [place] [address] Dr. Carrington Chandler IG # 0.02 10e3/ul Normal 0.00-0.03 [facility] Comment on above: Performed By: #### C BC #### [facility] [address] [place] [address] Dr. Carrington Chandler IG % 0.3 % Normal 0.0-0.5 [facility] Comment on above: Performed By: #### C BC #### [facility] [address] [place] [address] Dr. Carrington Chandler LYMPH # 1.6 103/ul Normal 1.2-3.8 [facility] Comment on above: Performed By: #### C BC #### [facility] [address] [place] [address] Dr. Carrington Chandler Lymphocytes/100 WBC (Bld) 24.0 % Normal 20.5-60.0 [facility] Comment on above: Performed By: #### C BC #### [facility] [address] [place] [address] Dr. Carrington Chandler MANUAL DIFF REQ NO Normal [facility] Comment on above: Performed By: #### C BC #### [facility] [address] [place] [address] Dr. Carrington Chandler MCH (RBC) [Entitic mass] 30.2 pg Normal 25.9-34.0 [facility] Comment on above: Performed By: #### C BC #### [facility] [address] [place] [address] Dr. Carrington Chanlder MCHC (RBC) [Mass/Vol] 33.3 g/dL Normal 29.9-35.2 [facility] Comment on above: Performed By: #### C BC #### [facility] [address] [place] [address] Dr. Carrington Chandler MCV (RBC) [Entitic vol] 90.6 fL Normal 80.0-94.0 [facility] Comment on above: Performed By: #### C BC #### [facility] [address] [place] [address] Dr. Carrington Chandler MONO # 0.6 103/ul Normal 0.3-0.8 [facility] Comment on above: Performed By: #### C BC #### [facility] [address] [place] [address] Dr. Carrington Chandler Monocytes/100 WBC (Bld) 9.4 % Normal 1.7-12.0 [facility] Comment on above: Performed By: #### C BC #### [facility] [address] [place] [address] Dr. Carrington Chandler NEUT # 4.4 103/ul Normal 1.4-6.5 [facility] Comment on above: Performed By: #### C BC #### [facility] [address] [place] [address] Dr. Carrington Chandler Neutrophils/100 WBC (Bld) 64.8 % Normal 43.0-75.0 [facility] Comment on above: Performed By: #### C BC #### [facility] [address] [place] [address] Dr. Carrington Chandler Platelet mean volume (Bld) [Entitic vol] 9.5 fL Normal 9.5-13.5 [facility] Comment on above: Performed By: #### C BC #### [facility] [address] [place] [address] Dr. Carrington Chandler PLT 174 103/ul Normal 150-450 [facility] Comment on above: Performed By: #### C BC #### [facility] [address] [place], [place] [address] Dr. Carrington Chandler RBC 4.77 106/ul Normal 4.70-6.10 [facility] Comment on above: Performed By: #### C BC #### [facility] [address] [place], [place] [address] Dr. Carrington Chandler WBC 6.7 103/ul Normal 4.0-11.0 [facility] Comment on above: Performed By: #### C BC #### [facility] [address] [place], [place] [address] Dr. Carrington Chandler Covid-19 PCR ([facility])on 06-25 SARS-CoV-2 (COVID-19) RNA CHARLIE+probe Ql (Unsp spec) Not detected Normal NOT DETECTED [facility] Comment on above: Result Comment: When [...] for this test is supported by the [place] of [employer] and Human Service's declaration that [...] used). Performed By: #### B MP #### [facility] [address] [id number] Carrington Chandler INFLUENZA A AND B AGon 07-08 INFLUANEGH SEE BELOW Normal [facility] Comment on above: Result Comment: Nega tive for Flu A protein angiten. Infection due to Flu A cannot be ruled out. Flu A angiten in the sample may be below the detection limit of the test. Performed By: #### B MP #### [facility] [address] [place] [address] Dr. Carrington Chandler [facility] SEE BELOW Normal [facility] Comment on above: Result Comment: Nega tive for Flu B protein antigen. Infection due to Flu B cannot be ruled out. Flu B antigen in the sample may be below the detection limit of the test. Performed By: #### B MP #### [facility] [address] [place] [address] Dr. Carrington Chandler INFLUENZA A AG Negative Normal NEGATIVE SEE COMMENT [facility] Comment on above: Performed By: #### B MP #### [facility] [address] [place] [address] Dr. Carrington Chandler INFLUENZA B AG Negative Normal NEGATIVE SEE COMMENT [facility] Comment on above: Performed By: #### B MP #### [facility] [address] [place] [address] Dr. Carrington Chandler INTERNAL CONTROLS Within Normal Limits Normal Wi thin Normal Limits [facility] Comment on above: Performed By: #### B MP #### [facility] [address] [place] [address] Dr. Carrington Chandler LIPASEon 07-08-2022 Lipase [Catalytic activity/Vol] 195.0 U/L Normal 73.0-393.0 [facility] Comment on above: Performed By: #### A MY, CMP, LIPA #### [facility] [address] [place] [address] Dr. Carrington Chandler PROF 14(COMP METB)on 022 Albumin [Mass/Vol] 3.4 g/dL Normal 3.4-5.0 [facility] Comment on above: Performed By: #### A MY, CMP, LIPA #### [facility] [address] [place] [address] Dr. Carrington Chandler Albumin/Globulin [Mass ratio] 0.8 {ratio} Normal [facility] Comment on above: Performed By: #### A MY, CMP, LIPA #### [facility] [address] [place] [address] Dr. Carrington Chandler ALP [Catalytic activity/Vol] 61 U/L Normal 46-116 [facility] Comment on above: Performed By: #### A MY, CMP, LIPA #### [facility] [address] [address] [address] Carrington Chandler ALT [Catalytic activity/Vol] 26 U/L Normal 16-63 [facility] Comment on above: Performed By: #### A MY, CMP, LIPA #### [facility] [address] [address] [address] Carrington Chandler Anion gap [Moles/Vol] 11.0 mmol/L Normal [facility] Comment on above: Performed By: #### A MY, CMP, LIPA #### [facility] [address] [place] [address] Dr. Carrington Chandler AST [Catalytic activity/Vol] 30 U/L Normal 15-37 [facility] Comment on above: Performed By: #### A MY, CMP, LIPA #### [facility] [address] [place] [address] Dr. Carrington Chandler Bilirubin [Mass/Vol] 0.3 mg/dL Normal 0.2-1.0 [facility] Comment on above: Performed By: #### A MY, CMP, LIPA #### [facility] [address] [place] [address] Dr. Carrington Chandler Calcium [Mass/Vol] 8.4 mg/dL Critically low 8.5-10.1 [facility] Comment on above: Performed By: #### A MY, CMP, LIPA #### [facility] [address] [place] [address] Dr. Carrington Chandler Chloride [Moles/Vol] 102 mmol/L Normal 98-107 [facility] Comment on above: Performed By: #### A MY, CMP, LIPA #### [facility] [address] [place] [address] Dr. Carrington Chandler CO2 [Moles/Vol] 28.1 mmol/L Normal 21.0-32.0 [facility] Comment on above: Performed By: #### A MY, CMP, LIPA #### [facility] [address] [address] [address] Carrington Chandler Creatinine [Mass/Vol] 0.99 mg/dL Normal 0.70-1.30 [facility] Comment on above: Performed By: #### A MY, CMP, LIPA #### [facility] [address] [address] [address] Carrington Chandler EGFR-AF [place]IZ[place] >60 Normal >=60 [facility] Comment on above: Performed By: #### A MY, CMP, LIPA #### [facility] [address] [address] [address] Carrington Chandler EGFR-NON AF [place]IZ[place] >60 Normal >=60 [facility] Comment on above: Performed By: #### A MY, CMP, LIPA #### [facility] [address] [address] [address] Carrington Chandler Globulin (S) [Mass/Vol] 4.3 g/dL Normal [facility] Comment on above: Performed By: #### A MY, CMP, LIPA #### [facility] [address] [address] [address] Carrington Chandler Glucose [Mass/Vol] 107 mg/dL Critically high 74-106 [facility] Comment on above: Performed By: #### A MY, CMP, LIPA #### [facility] [address] [address] [address] Carrington Chandler Potassium [Moles/Vol] 4.1 mmol/L Normal 3.5-5.1 [facility] Comment on above: Performed By: #### A MY, CMP, LIPA #### [facility] [address] [address] [address] Carrington Chandler Protein [Mass/Vol] 7.7 g/dL Normal 6.4-8.2 [facility] Comment on above: Performed By: #### A MY, CMP, LIPA #### [facility] [address] [address] [address] Carrington Chandler Sodium [Moles/Vol] 137 mmol/L Normal 136-145 [facility] Comment on above: Performed By: #### A MY, CMP, LIPA #### [facility] [address] [place] [address] Dr. Carrington Chandler Urea nitrogen [Mass/Vol] 23.0 mg/dL Critically high 7.0-18.0 [facility] Comment on above: Performed By: #### A MY, CMP, LIPA #### [facility] [address] [place] [address] Dr. Carrington Chandler Urea nitrogen/Creatinine [Mass ratio] 23.2 mg/mg Normal [facility] Comment on above: Performed By: #### A MY, CMP, LIPA #### [facility] [address] [place] [address] Dr. Carrington Chandler CBC AUTO DIFFon 07-03-2022 BASO # 0.0 103/ul Normal 0.0-0.1 [facility] Comment on above: Performed By: #### C MP #### [facility] [address] [place] [address] Dr. Carrington Chandler Basophils/100 WBC (Bld) 0.5 % Normal 0.2-2.0 [facility] Comment on above: Performed By: #### C MP #### [facility] [address] [place] [address] Dr. Carrington Chandler EO # 0.3 103/ul Normal 0.0-0.7 [facility] Comment on above: Performed By: #### C MP #### [facility] [address] [place] [address] Dr. Carrington Chandler Eosinophils/100 WBC (Bld) 4.7 % Normal 0.9-7.0 [facility] Comment on above: Performed By: #### C MP #### [facility] [address] [place] [address] Dr. Carrington Chandler Erythrocyte distribution width (RBC) [Ratio] 12.7 % Normal 11.0-15.0 [facility] Comment on above: Performed By: #### C MP #### [facility] [address] [place] [address] Dr. Carrington Chandler Hematocrit (Bld) [Volume fraction] 38.8 % Critically low 42.0-54.0 [facility] Comment on above: Performed By: #### C MP #### [facility] [address] [place] [address] Dr. Carrington Chandler Hemoglobin (Bld) [Mass/Vol] 13.2 g/dL Critically low 14.0-18.0 [facility] Comment on above: Performed By: #### C MP #### [facility] [address] [place] [address] Dr. Carrington Chandler IG # 0.01 10e3/ul Normal 0.00-0.03 [facility] Comment on above: Performed By: #### C MP #### [facility] [address] [place] [address] Dr. Carrington Chandler IG % 0.2 % Normal 0.0-0.5 [facility] Comment on above: Performed By: #### C MP #### [facility] [address] [place] [address] Dr. Carrington Chandler LYMPH # 1.4 103/ul Normal 1.2-3.8 [facility] Comment on above: Performed By: #### C MP #### [facility] [address] [place] [address] Dr. Carrington Chandler Lymphocytes/100 WBC (Bld) 25.2 % Normal 20.5-60.0 [facility] Comment on above: Performed By: #### C MP #### [facility] [address] [place] [address] Dr. Carrington Chandler MANUAL DIFF REQ NO Normal [facility] Comment on above: Performed By: #### C MP #### [facility] [address] [place] [address] Dr. Carrington Chandler MCH (RBC) [Entitic mass] 30.3 pg Normal 25.9-34.0 [facility] Comment on above: Performed By: #### C MP #### [facility] [address] [place] [address] Dr. Carrington Chandler MCHC (RBC) [Mass/Vol] 34.0 g/dL Normal 29.9-35.2 [facility] Comment on above: Performed By: #### C MP #### [facility] [address] [place] [address] [address] Carrington Chandler MCV (RBC) [Entitic vol] 89.2 fL Normal 80.0-94.0 [facility] Comment on above: Performed By: #### C MP #### [facility] [address] [place] [address] [address] Carrington Chandler MONO # 0.6 103/ul Normal 0.3-0.8 [facility] Comment on above: Performed By: #### C MP #### [facility] [address] [address] [address] Carrington Chandler Monocytes/100 WBC (Bld) 10.2 % Normal 1.7-12.0 [facility] Comment on above: Performed By: #### C MP #### [facility] [address] [place] [address] [address] Carrington Chandler NEUT # 3.3 103/ul Normal 1.4-6.5 [facility] Comment on above: Performed By: #### C MP #### [facility] [address] [place] [address] Dr. Carrington Chandler Neutrophils/100 WBC (Bld) 59.2 % Normal 43.0-75.0 [facility] Comment on above: Performed By: #### C MP #### [facility] [address] [address] [address] Carrington Chandler Platelet mean volume (Bld) [Entitic vol] 9.1 fL Critically low 9.5-13.5 [facility] Comment on above: Performed By: #### C MP #### [facility] [address] [address] [address] Carrington Chandler PLT 199 103/ul Normal 150-450 [facility] Comment on above: Performed By: #### C MP #### [facility] [address] [place] [address] Dr. Carrington Chandler RBC 4.35 106/ul Critically low 4.70-6.10 [facility] Comment on above: Performed By: #### C MP #### [facility] [address] [place] [address] Dr. Carrington Chandler WBC 5.5 103/ul Normal 4.0-11.0 [facility] Comment on above: Performed By: #### C MP #### [facility] [address] [address] [address] Carrington Chandler Covid-19 PCR ([facility])on SARS-CoV-2 (COVID-19) RNA CHARLIE+probe Ql (Unsp spec) Not detected Normal NOT DETECTED [facility] Comment on above: Result Comment: When [...] for this test is supported by the [place] of [employer] and Human Service's declaration that [...] used). Performed By: #### B MP #### [facility] [address] [place] [address] Dr. Carrington Chandler PROF 14(COMP METB)on 022 Albumin [Mass/Vol] 3.8 g/dL Normal 3.4-5.0 [facility] Comment on above: Performed By: #### C MP #### [facility] [address] [place] [address] Dr. Carrington Chandler Albumin/Globulin [Mass ratio] 1.0 {ratio} Normal [facility] Comment on above: Performed By: #### C MP #### [facility] [address] [place] [address] Dr. Carrington Chandler ALP [Catalytic activity/Vol] 69 U/L Normal 46-116 [facility] Comment on above: Performed By: #### C MP #### [facility] [address] [place] [address] [address] Carrington Chandler ALT [Catalytic activity/Vol] 18 U/L Normal 16-63 [facility] Comment on above: Performed By: #### C MP #### [facility] [address] [place] [address] [address] Carrington Chandler Anion gap [Moles/Vol] 13.3 mmol/L Normal [facility] Comment on above: Performed By: #### C MP #### [facility] [address] [address] [address] Carrington Chandler AST [Catalytic activity/Vol] 19 U/L Normal 15-37 [facility] Comment on above: Performed By: #### C MP #### [facility] [address] [address] [address] Carrington Chandler Bilirubin [Mass/Vol] 0.3 mg/dL Normal 0.2-1.0 [facility] Comment on above: Performed By: #### C MP #### [facility] [address] [address] [address] Carrington Chandler Calcium [Mass/Vol] 9.0 mg/dL Normal 8.5-10.1 [facility] Comment on above: Performed By: #### C MP #### [facility] [address] [address] [address] Carrington Chandler Chloride [Moles/Vol] 101 mmol/L Normal 98-107 [facility] Comment on above: Performed By: #### C MP #### [facility] [address] [address] [address] Carrington Chandler CO2 [Moles/Vol] 26.7 mmol/L Normal 21.0-32.0 [facility] Comment on above: Performed By: #### C MP #### [facility] [address] [address] [address] Carrington Chandler Creatinine [Mass/Vol] 1.06 mg/dL Normal 0.70-1.30 [facility] Comment on above: Performed By: #### C MP #### [facility] [address] [place] [address] [address] Carrington Chandler EGFR-AF CITIZEN [place] >60 Normal >=60 [facility] Comment on above: Performed By: #### C MP #### [facility] [address] [address] [address] Carrington Chandler EGFR-NON AF CITIZEN [place] >60 Normal >=60 [facility] Comment on above: Performed By: #### C MP #### [facility] [address] [address] [address] Carrington Chandler Globulin (S) [Mass/Vol] 3.8 g/dL Normal [facility] Comment on above: Performed By: #### C MP #### [facility] [address] [place] [address] Dr. Carrington Chandler Glucose [Mass/Vol] 98 mg/dL Normal 74-106 [facility] Comment on above: Performed By: #### C MP #### [facility] [address] [address] [address] Carrington Chandler Potassium [Moles/Vol] 4.0 mmol/L Normal 3.5-5.1 [facility] Comment on above: Performed By: #### C MP #### [facility] [address] [place] [address] Dr. Carrington Chandler Protein [Mass/Vol] 7.6 g/dL Normal 6.4-8.2 [facility] Comment on above: Performed By: #### C MP #### [facility] [address] [address] [address] Carrington Chandler Sodium [Moles/Vol] 137 mmol/L Normal 136-145 [facility] Comment on above: Performed By: #### C MP #### [facility] [address] [address] [address] Carrington Chandler Urea nitrogen [Mass/Vol] 21.0 mg/dL Critically high 7.0-18.0 [facility] Comment on above: Performed By: #### C MP #### [facility] [address] [place] [address] Dr. Carrington Chandler Urea nitrogen/Creatinine [Mass ratio] 19.8 mg/mg Normal [facility] Comment on above: Performed By: #### C MP #### [facility] [address] [place] [address] Dr. Carrington Chandler XR CHEST 1 Von [...] CYNTHIA VASQUEZ Date: 2022-07-03 21:16 Normal [facility] CBC AUTO DIFFon 02-03-2022 BASO # 0.0 103/ul Normal 0.0-0.1 [facility] Comment on above: Performed By: #### C BC #### [facility] [address] [place] [address] Dr. Carrintgon Chandler Basophils/100 WBC (Bld) 0.3 % Normal 0.2-2.0 [facility] Comment on above: Performed By: #### C BC #### [facility] [address] [place] [address] Dr. Carrington Chandler EO # 0.1 103/ul Normal 0.0-0.7 [facility] Comment on above: Performed By: #### C BC #### [facility] [address] [place] [address] Dr. Carrington Chandler Eosinophils/100 WBC (Bld) 0.9 % Normal 0.9-7.0 [facility] Comment on above: Performed By: #### C BC #### [facility] [address] [place] [address] Dr. Carrington Chandler Erythrocyte distribution width (RBC) [Ratio] 13.9 % Normal 11.0-15.0 [facility] Comment on above: Performed By: #### C BC #### [facility] [address] [place] [address] Dr. Carrington Chandler Hematocrit (Bld) [Volume fraction] 40.4 % Critically low 42.0-54.0 [facility] Comment on above: Performed By: #### C BC #### [facility] [address] [place] [address] Dr. Carrington Chandler Hemoglobin (Bld) [Mass/Vol] 13.4 g/dL Critically low 14.0-18.0 [facility] Comment on above: Performed By: #### C BC #### [facility] [address] [place] [address] Dr. Carrington Chandler IG # 0.03 10e3/ul Normal 0.00-0.03 [facility] Comment on above: Performed By: #### C BC #### [facility] [address] [place] [address] Dr. Carrington Chandler IG % 0.3 % Normal 0.0-0.5 [facility] Comment on above: Performed By: #### C BC #### [facility] [address] [place] [address] Dr. Carrington Chandler LYMPH # 1.5 103/ul Normal 1.2-3.8 [facility] Comment on above: Performed By: #### C BC #### [facility] [address] [place] [address] Dr. Carrington Chandler Lymphocytes/100 WBC (Bld) 12.3 % Critically low 20.5-60.0 [facility] Comment on above: Performed By: #### C BC #### [facility] [address] [place] [address] Dr. Carrington Chandler MANUAL DIFF REQ NO Normal [facility] Comment on above: Performed By: #### C BC #### [facility] [address] [address] [address] Carrington Chandler MCH (RBC) [Entitic mass] 30.0 pg Normal 25.9-34.0 [facility] Comment on above: Performed By: #### C BC #### [facility] [address] [place] [address] Dr. Carrington Chandler MCHC (RBC) [Mass/Vol] 33.2 g/dL Normal 29.9-35.2 [facility] Comment on above: Performed By: #### C BC #### [facility] [address] [place] [address] Dr. Carrington Chandler MCV (RBC) [Entitic vol] 90.6 fL Normal 80.0-94.0 [facility] Comment on above: Performed By: #### C BC #### [facility] [address] [place] [address] Dr. Carrington Chandler MONO # 1.0 103/ul Critically high 0.3-0.8 [facility] Comment on above: Performed By: #### C BC #### [facility] [address] [place] [address] Dr. Carrington Chandler Monocytes/100 WBC (Bld) 8.5 % Normal 1.7-12.0 [facility] Comment on above: Performed By: #### C BC #### [facility] [address] [place] [address] Dr. Carrington Chandler NEUT # 9.2 103/ul Critically high 1.4-6.5 [facility] Comment on above: Performed By: #### C BC #### [facility] [address] [place] [address] Dr. Carrington Chandler Neutrophils/100 WBC (Bld) 77.7 % Critically high 43.0-75.0 [facility] Comment on above: Performed By: #### C BC #### [facility] [address] [place] [address] Dr. Carrington Chandler Platelet mean volume (Bld) [Entitic vol] 9.5 fL Normal 9.5-13.5 [facility] Comment on above: Performed By: #### C BC #### [facility] [address] [place] [address] Dr. Carrington Chandler PLT 204 103/ul Normal 150-450 [facility] Comment on above: Performed By: #### C BC #### [facility] [address] [address] [address] Carrington Chandler RBC 4.46 106/ul Critically low 4.70-6.10 [facility] Comment on above: Performed By: #### C BC #### [facility] [address] [place] [address] Dr. Carrington Chandler WBC 11.9 103/ul Critically high 4.0-11.0 [facility] Comment on above: Performed By: #### C BC #### [facility] [address] [place] [address] Dr. Carrington Chandler Covid-19 PCR ([facility])on 01-23 SARS-CoV-2 (COVID-19) RNA CHARLIE+probe Ql (Unsp spec) Not detected Normal NOT DETECTED [facility] Comment on above: Result Comment: When [...] for this test is supported by the Head [place] of Health and Human Service's declaration that [...] used). Performed By: #### C VDTBH #### [facility] [address] [place] [address] Dr. Carrington Chandler PROF 14(COMP METB)on 022 Albumin [Mass/Vol] 3.7 g/dL Normal 3.4-5.0 [facility] Comment on above: Performed By: #### C MP #### [facility] [address] [place] [address] Dr. Carrington Chandler Albumin/Globulin [Mass ratio] 0.9 {ratio} Normal [facility] Comment on above: Performed By: #### C MP #### [facility] [address] [place] [address] Dr. Carrington Chandler ALP [Catalytic activity/Vol] 62 U/L Normal 46-116 [facility] Comment on above: Performed By: #### C MP #### [facility] [address] [place] [address] Dr. Carrington Chandler ALT [Catalytic activity/Vol] 21 U/L Normal 16-63 [facility] Comment on above: Performed By: #### C MP #### [facility] [address] [place] [address] Dr. Carrington Chandler Anion gap [Moles/Vol] 12.3 mmol/L Normal [facility] Comment on above: Performed By: #### C MP #### [facility] [address] [place] [address] Dr. Carrington Chandler AST [Catalytic activity/Vol] 13 U/L Critically low 15-37 [facility] Comment on above: Performed By: #### C MP #### [facility] [address] [place] [address] Dr. Carrington Chandler Bilirubin [Mass/Vol] 0.5 mg/dL Normal 0.2-1.0 [facility] Comment on above: Performed By: #### C MP #### [facility] [address] [place] [address] Dr. Carrington Chandler Calcium [Mass/Vol] 9.1 mg/dL Normal 8.5-10.1 [facility] Comment on above: Performed By: #### C MP #### [facility] [address] [place] [address] Dr. Carrington Chandler Chloride [Moles/Vol] 102 mmol/L Normal 98-107 [facility] Comment on above: Performed By: #### C MP #### [facility] [address] [place] [address] Dr. Carrington Chandler CO2 [Moles/Vol] 24.9 mmol/L Normal 21.0-32.0 [facility] Comment on above: Performed By: #### C MP #### [facility] [address] [address] [address] aCrrington Chandler Creatinine [Mass/Vol] 1.36 mg/dL Critically high 0.70-1.30 [facility] Comment on above: Performed By: #### C MP #### [facility] [address] [place] [address] Dr. Carrington Chandler EGFR-AF CITIZEN [place] >60 Normal >=60 [facility] Comment on above: Performed By: #### C MP #### [facility] [address] [place] [address] Dr. Carrington Chandler EGFR-NON AF CITIZEN OF [place] 53 mL/min/1.73m2 Critically low >=60 [facility] Comment on above: Performed By: #### C MP #### [facility] [address] [place] [address] Dr. Carrington Chandler Globulin (S) [Mass/Vol] 3.9 g/dL Normal [facility] Comment on above: Performed By: #### C MP #### [facility] [address] [place] [address] Dr. Carrington Chandler Glucose [Mass/Vol] 138 mg/dL Critically high 74-106 [facility] Comment on above: Performed By: #### C MP #### [facility] [address] [address] [address] Carrington Chandler Potassium [Moles/Vol] 4.2 mmol/L Normal 3.5-5.1 [facility] Comment on above: Performed By: #### C MP #### [facility] [address] [place] [address] Dr. Carrington Chandler Protein [Mass/Vol] 7.6 g/dL Normal 6.4-8.2 [facility] Comment on above: Performed By: #### C MP #### [facility] [address] [address] [address] Carrington Chandler Sodium [Moles/Vol] 135 mmol/L Critically low 136-145 [facility] Comment on above: Performed By: #### C MP #### [facility] [address] [address] [address] Carrington Chandler Urea nitrogen [Mass/Vol] 24.0 mg/dL Critically high 7.0-18.0 [facility] Comment on above: Performed By: #### C MP #### [facility] [address] [address] [address] Carrington Chandler Urea nitrogen/Creatinine [Mass ratio] 17.6 mg/mg Normal [facility] Comment on above: Performed By: #### C MP #### [facility] [address] [address] [address] Carrington Chandler XR CHEST 1 Von [...] by: DAREK MARX Date: 2022-02-03 02:09 Normal [facility] Vital Signs Date Time Vital Sign Value Performing Clinician Facility 10-31-2024 14:52-0400 Body height 170.2 cm [facility] 10-31-2024 14:52-0400 Body mass index (BMI) [Ratio] 38.47 kg/m2 [facility] 10-31-2024 14:52-0400 Body temperature 97.9 [degF] [email or web address] 10-31-2024 14:52-0400 Body weight 111.4 kg [facility] 10-31-2024 14:52-0400 Diastolic blood pressure 76 mm[Hg] [facility] 10-31-2024 14:52-0400 Heart rate 90 /min [facility] 10-31-2024 14:52-0400 Respiratory rate 16 /min [email or web address] 10-31-2024 14:52-0400 SaO2% (BldA) [Mass fraction] 94 % [facility] 10-31-2024 14:52-0400 Systolic blood pressure 111 mm[Hg] [facility] 09-20-2024 09:17-0500 Body height 167.6 cm Alok Webber DO Work Phone: [facility] 09-20-2024 09:17-0500 Body mass index (BMI) [Ratio] 39.22 kg/m2 Alok Webber DO Work Phone: [facility] 09-20-2024 09:17-0500 Body weight 110.22 kg Alok Webber DO Work Phone: [facility] 09-20-2024 09:17-0500 Diastolic blood pressure 78 mm[Hg] Alok Webber DO Work Phone: [facility] 09-20-2024 09:17-0500 Heart rate 115 /min Alok Webber DO Work Phone: [facility] 09-20-2024 09:17-0500 Systolic blood pressure 124 mm[Hg] Alok Webber DO Work Phone: [facility] 09-14-2024 10:50-0500 Body height 170.2 cm Rom Pierre MD Work Phone: [facility] 09-14-2024 10:50-0500 Body mass index (BMI) [Ratio] 38.53 kg/m2 Rom Pierre MD Work Phone: [facility] 09-14-2024 10:50-0500 Body temperature 97.39 [degF] Rom Pierre MD Work Phone: [facility] 09-14-2024 10:50-0500 Body weight 111.58 kg Rom Pierre MD Work Phone: [facility] 09-14-2024 10:50-0500 Diastolic blood pressure 72 mm[Hg] Rom Pierre MD Work Phone: [facility] 09-14-2024 10:50-0500 Heart rate 96 /min Rom Pierre MD Work Phone: [facility] 09-14-2024 10:50-0500 Respiratory rate 16 /min Rom Pierre MD Work Phone: [facility] 09-14-2024 10:50-0500 SaO2% (BldA) [Mass fraction] 96 % Rom Pierre MD Work Phone: [facility] 09-14-2024 10:50-0500 Systolic blood pressure 126 mm[Hg] Rom Pierre MD Work Phone: [facility] 05-29-2024 15:05-0500 Body height 170.18 cm [facility] 05-29-2024 15:05-0500 Body mass index (BMI) [Ratio] 37.4 kg/m2 [facility] 05-29-2024 15:05-0500 Body weight 108.4 kg [facility] 05-29-2024 15:05-0500 Diastolic blood pressure 69 mm[Hg] [facility] 05-29-2024 15:05-0500 Heart rate 93 /min [facility] 05-29-2024 15:05-0500 SaO2% (BldA) [Mass fraction] 93 % [facility] 05-29-2024 15:05-0500 Systolic blood pressure 124 mm[Hg] [facility] 05-11-2024 14:52-0400 Diastolic blood pressure 72 mm[Hg] [facility] 05-11-2024 14:52-0400 Heart rate 108 /min [facility] 05-11-2024 14:52-0400 SaO2% (BldA) [Mass fraction] 95 % [facility] 05-11-2024 14:52-0400 Systolic blood pressure 118 mm[Hg] [facility] 03-09-2024 10:23-0400 Body height 170.2 cm Rom Pierre MD Work Phone: [facility] 03-09-2024 10:23-0400 Body mass index (BMI) [Ratio] 37.93 kg/m2 Rom Pierre MD Work Phone: [facility] 03-09-2024 10:23-0400 Body weight 109.86 kg Rom Pierre MD Work Phone: [facility] 03-09-2024 10:23-0400 Diastolic blood pressure 86 mm[Hg] Rom Pierre MD Work Phone: [facility] 03-09-2024 10:23-0400 Heart rate 93 /min Rom Pierre MD Work Phone: [facility] 03-09-2024 10:23-0400 SaO2% (BldA) [Mass fraction] 95 % Rom Pierre MD Work Phone: [facility] 03-09-2024 10:23-0400 Systolic blood pressure 148 mm[Hg] Rom Pierre MD Work Phone: [facility] 02-24-2024 14:00-0400 Body height 170.18 cm [facility] 02-24-2024 14:00-0400 Body mass index (BMI) [Ratio] 37.7 kg/m2 [facility] 02-24-2024 14:00-0400 Body weight 109.31 kg [facility] 02-24-2024 14:00-0400 Diastolic blood pressure 63 mm[Hg] [facility] 02-24-2024 14:00-0400 Heart rate 99 /min [facility] 02-24-2024 14:00-0400 Systolic blood pressure 99 mm[Hg] [facility] 01-05-2024 12:56-0400 Body height 170.18 cm [facility] 01-05-2024 12:56-0400 Body mass index (BMI) [Ratio] 38.2 kg/m2 [facility] 01-05-2024 12:56-0400 Body weight 110.78 kg [facility] 01-05-2024 12:56-0400 Diastolic blood pressure 66 mm[Hg] [facility] 01-05-2024 12:56-0400 Heart rate 66 /min [facility] 01-05-2024 12:56-0400 SaO2% (BldA) [Mass fraction] 91 % [facility] 01-05-2024 12:56-0400 Systolic blood pressure 108 mm[Hg] [facility] 12-13-2023 13:44-0400 Body height 171.45 cm [facility] 12-13-2023 13:44-0400 Body mass index (BMI) [Ratio] 37.5 kg/m2 [facility] 12-13-2023 13:44-0400 Body weight 110.22 kg [facility] 12-13-2023 13:44-0400 Diastolic blood pressure 60 mm[Hg] [facility] 12-13-2023 13:44-0400 Heart rate 87 /min [facility] 12-13-2023 13:44-0400 SaO2% (BldA) [Mass fraction] 97 % [facility] 12-13-2023 13:44-0400 Systolic blood pressure 102 mm[Hg] [facility] 11-25-2023 14:56-0400 Body height 2042.16 cm [facility] 11-25-2023 14:56-0400 Body mass index (BMI) [Ratio] 0.2 kg/m2 [facility] 11-25-2023 14:56-0400 Body weight 110.22 kg [facility] 11-25-2023 14:56-0400 Diastolic blood pressure 68 mm[Hg] [facility] 11-25-2023 14:56-0400 Heart rate 71 /min [facility] 11-25-2023 14:56-0400 SaO2% (BldA) [Mass fraction] 93 % [facility] 11-25-2023 14:56-0400 Systolic blood pressure 116 mm[Hg] [facility] 10-26-2023 14:31-0400 Body height 171.45 cm [facility] 10-26-2023 14:31-0400 Body mass index (BMI) [Ratio] 37 kg/m2 [facility] 10-26-2023 14:31-0400 Body weight 108.86 kg [facility] 10-26-2023 14:31-0400 Diastolic blood pressure 65 mm[Hg] [facility] 10-26-2023 14:31-0400 Heart rate 78 /min [facility] 10-26-2023 14:31-0400 SaO2% (BldA) [Mass fraction] 97 % [facility] 10-26-2023 14:31-0400 Systolic blood pressure 103 mm[Hg] [facility] 10-04-2023 15:13-0400 Body height 171.45 cm [facility] 10-04-2023 15:13-0400 Body mass index (BMI) [Ratio] 36.7 kg/m2 [facility] 10-04-2023 15:13-0400 Body weight 108.04 kg [facility] 10-04-2023 15:13-0400 Diastolic blood pressure 63 mm[Hg] [facility] 10-04-2023 15:13-0400 Heart rate 72 /min [facility] 10-04-2023 15:13-0400 SaO2% (BldA) [Mass fraction] 93 % [facility] 10-04-2023 15:13-0400 Systolic blood pressure 95 mm[Hg] [facility] 09-14-2023 09:13-0500 Body height 170.2 cm Alok Webber DO Work Phone: [facility] 09-14-2023 09:13-0500 Body mass index (BMI) [Ratio] 36.81 kg/m2 Alok Webber DO Work Phone: [facility] 09-14-2023 09:13-0500 Body weight 106.59 kg Alok Webber DO Work Phone: [facility] 09-14-2023 09:13-0500 Diastolic blood pressure 70 mm[Hg] Alok Webber DO Work Phone: [facility] 09-14-2023 09:13-0500 Heart rate 72 /min Alok Webber DO Work Phone: [facility] 09-14-2023 09:13-0500 Systolic blood pressure 118 mm[Hg] Alok Webber DO Work Phone: [facility] 08-06-2023 13:30-0500 Body height 171.45 cm Brock Modi Other [facility] 08-06-2023 13:30-0500 Body mass index (BMI) [Ratio] 35.95 kg/m2 Brock Modi Other [facility] [employer] Other 08-06-2023 13:30-0500 Body weight 105.69 kg Brock Modi Other [facility] [employer] Other 08-06-2023 13:30-0500 Body weight 105.68 kg [facility] 08-06-2023 13:30-0500 Diastolic blood pressure 66 mm[Hg] Brock Modi Other [facility] 08-06-2023 13:30-0500 SaO2% (BldA) [Mass fraction] 95 % Brock Modi Other [facility] [employer] Other 08-06-2023 13:30-0500 Systolic blood pressure 108 mm[Hg] Brock Modi Other [facility] 08-05-2023 14:23-0500 Diastolic blood pressure 76 mm[Hg] Christopher Faith MD Work Phone: [facility] [employer] 08-05-2023 14:23-0500 Heart rate 70 /min Christopher Faith MD Work Phone: [facility] [employer] 08-05-2023 14:23-0500 Systolic blood pressure 108 mm[Hg] Christopher Faith MD Work Phone: [facility] [employer] 08-05-2023 14:22-0500 Body height 170.2 cm Christopher Faith MD Work Phone: [facility] [employer] 08-05-2023 14:22-0500 Body mass index (BMI) [Ratio] 36.43 kg/m2 Christopher Faith MD [facility] 08-05-2023 14:22-0500 Body weight 105.51 kg Christopher Faith MD Work Phone: [facility] [employer] 08-05-2023 14:22-0500 Respiratory rate 18 /min Christopher Faith MD [facility] 06-24-2023 11:00-0500 Body height 171.45 cm Brock Modi Other [employer] Other 06-24-2023 11:00-0500 Body mass index (BMI) [Ratio] 34.56 kg/m2 Brock Modi Other [employer] Other 06-24-2023 11:00-0500 Body temperature 98.1 [degF] Brock Modi Other [employer] Other 06-24-2023 11:00-0500 Body weight 101.61 kg Brock Modi Other [employer] Other 06-24-2023 11:00-0500 Diastolic blood pressure 67 mm[Hg] Brock Modi Other [employer] Other 06-24-2023 11:00-0500 SaO2% (BldA) [Mass fraction] 95 % Brock Modi Other [employer] Other 06-24-2023 11:00-0500 Systolic blood pressure 109 mm[Hg] Brock Modi Other [employer] Other 03-16-2023 11:30-0400 Body height 171.45 cm Brock Modi Other [employer] Other 03-16-2023 11:30-0400 Body mass index (BMI) [Ratio] 33.48 kg/m2 Brock Modi Other [employer] Other 03-16-2023 11:30-0400 Body weight 98.43 kg Brock Modi Other [employer] Other 03-16-2023 11:30-0400 Diastolic blood pressure 67 mm[Hg] Brock Modi Other [employer] Other 03-16-2023 11:30-0400 SaO2% (BldA) [Mass fraction] 93 % Brock Modi Other [employer] Other 03-16-2023 11:30-0400 Systolic blood pressure 114 mm[Hg] Brock Modi Other [employer] Other 02-04-2023 13:30-0400 Body height 171.45 cm Brock Modi Other [employer] Other 02-04-2023 13:30-0400 Body mass index (BMI) [Ratio] 33.64 kg/m2 Brock Modi Other [employer] Other 02-04-2023 13:30-0400 Body weight 98.88 kg Brock Modi Other [facility] [employer] [facility] Other 02-04-2023 13:30-0400 Diastolic blood pressure 67 mm[Hg] Brock Modi Other [facility] Other 02-04-2023 13:30-0400 SaO2% (BldA) [Mass fraction] 96 % Brock Modi Other [facility] Other 02-04-2023 13:30-0400 Systolic blood pressure 117 mm[Hg] Brock Modi Other [facility] [facility] Other 12-24-2022 14:08-0400 Body height 167.64 cm Brock Modi [facility] [employer] DO Work Phone: 12-24-2022 14:08-0400 Body mass index (BMI) [Ratio] 35.02 kg/m2 Brock Modi Work Phone: [facility] [employer] DO Work Phone: 12-24-2022 14:08-0400 Body surface area Derived from formula 2.07 m2 Brock Modi Work Phone: [facility] [employer] DO Work Phone: 12-24-2022 14:08-0400 Body weight 98.43 kg Brock Modi Work Phone: [facility] [employer] [place] [employer] DO Work Phone: 12-24-2022 14:08-0400 Diastolic blood pressure 80 mm[Hg] Brock Modi Work Phone: [facility] [place] [address] DO Work Phone: 12-24-2022 14:08-0400 Heart rate 115 /min Brock Modi Work Phone: [facility] [address] DO Work Phone: 12-24-2022 14:08-0400 Systolic blood pressure 124 mm[Hg] Brock Modi Work Phone: [facility] [address] DO Work Phone: 11-27-2022 11:00-0400 Body height 171.45 cm Wagner Marrufo Other [employer] Other 11-27-2022 11:00-0400 Body mass index (BMI) [Ratio] 33.48 kg/m2 Wagner Marrufo Other [employer] Other 11-27-2022 11:00-0400 Body weight 98.43 kg Wagner Marrufo Other [employer] Other 11-12-2022 12:45-0400 Body height 171.45 cm Brock Modi Other [employer] Other 11-12-2022 12:45-0400 Body mass index (BMI) [Ratio] 33.48 kg/m2 Brock Modi Other [employer] Other 11-12-2022 12:45-0400 Body weight 98.43 kg Brock Modi Other [employer] Other 11-12-2022 12:45-0400 Diastolic blood pressure 78 mm[Hg] Brock Modi Other [employer] Other 11-12-2022 12:45-0400 SaO2% (BldA) [Mass fraction] 92 % Brock Modi Other [employer] Other 11-12-2022 12:45-0400 Systolic blood pressure 122 mm[Hg] Brock Modi Other [employer] Other 10-21-2022 15:18-0400 Body height 167.64 cm Brock Modi Work Phone: [facility] 250 DO Work Phone: 10-21-2022 15:18-0400 Body mass index (BMI) [Ratio] 35.51 kg/m2 Brock Modi Work Phone: [facility] 250 DO Work Phone: 10-21-2022 15:18-0400 Body surface area Derived from formula 2.08 m2 Brock Modi Work Phone: [facility] 250 DO Work Phone: 10-21-2022 15:18-0400 Body weight 99.79 kg Brock Modi Work Phone: [facility] 250 DO Work Phone: 10-21-2022 15:18-0400 Diastolic blood pressure 70 mm[Hg] Brock Modi Work Phone: [facility] 250 DO Work Phone: 10-21-2022 15:18-0400 Heart rate 84 /min Brock Modi Work Phone: [facility] 250 DO Work Phone: 10-21-2022 15:18-0400 Systolic blood pressure 126 mm[Hg] Brock Modi Work Phone: [facility] 250 DO Work Phone: 10-15-2022 11:15-0400 Body height 171.45 cm Brock Modi Other [facility] [facility] Other 10-15-2022 11:15-0400 Body mass index (BMI) [Ratio] 33.33 kg/m2 Brock Modi Other [employer] Other 10-15-2022 11:15-0400 Body weight 97.98 kg Brock Modi Other [employer] Other 10-15-2022 11:15-0400 Diastolic blood pressure 84 mm[Hg] Brock Modi Other [employer] Other 10-15-2022 11:15-0400 SaO2% (BldA) [Mass fraction] 94 % Brock Modi Other [employer] Other 10-15-2022 11:15-0400 Systolic blood pressure 122 mm[Hg] Brock Modi Other [employer] Other 10-13-2022 11:57-0400 Body temperature 97.4 [degF] MD Brock Modi Work Phone: [facility] 10-13-2022 11:57-0400 Diastolic blood pressure 85 mm[Hg] MD Brock Modi Work Phone: [facility] 10-13-2022 11:57-0400 Heart rate 107 /min MD Brock Modi Work Phone: [facility] 10-13-2022 11:57-0400 Inhaled oxygen flow rate 2 L/min MD Brock Modi Work Phone: [facility] 10-13-2022 11:57-0400 Respiratory rate 17 /min MD Brock Modi Work Phone: [facility] 10-13-2022 11:57-0400 SaO2% (BldA) [Mass fraction] 97 % MD Brock Modi Work Phone: [facility] 10-13-2022 11:57-0400 Systolic blood pressure 125 mm[Hg] MD Brock Modi Work Phone: [facility] 10-13-2022 04:32-0400 Body weight 97.52 kg MD Brock Modi Work Phone: [facility] 10-10-2022 08:46-0400 65 1 Brock Modi Work Phone: [facility] 250 DO Work Phone: Comment on above: [id number] 10-10-2022 04:57-0400 Body height 170.18 cm MD Brock Modi Work Phone: [facility] 09-09-2022 14:30-0500 Body height 171.45 cm Wagner Marrufo Other [facility] [employer] Other 09-09-2022 14:30-0500 Body mass index (BMI) [Ratio] 34.41 kg/m2 Wagner Marrufo Other [facility] Other 09-09-2022 14:30-0500 Body weight 101.15 kg Wagner Marrufo Other [facility] Other 08-13-2022 12:15-0500 Body height 171.45 cm Brock Modi Other [facility] Other 08-13-2022 12:15-0500 Body mass index (BMI) [Ratio] 34.38 kg/m2 Brock Modi Other [facility] Other 08-13-2022 12:15-0500 Body weight 101.06 kg Brock Modi Other [employer] Other 08-13-2022 12:15-0500 Diastolic blood pressure 84 mm[Hg] Brock Modi Other [employer] Other 08-13-2022 12:15-0500 SaO2% (BldA) [Mass fraction] 97 % Brock Modi Other [employer] Other 08-13-2022 12:15-0500 Systolic blood pressure 132 mm[Hg] Brock Modi Other [employer] Other 07-30-2022 12:30-0500 Body height 171.45 cm Brock Modi Other [employer] Other 07-30-2022 12:30-0500 Body mass index (BMI) [Ratio] 32.71 kg/m2 Brock Modi Other [employer] Other 07-30-2022 12:30-0500 Body weight 96.16 kg Brock Modi Other [employer] Other 07-30-2022 12:30-0500 Diastolic blood pressure 80 mm[Hg] Brock Modi Other [employer] Other 07-30-2022 12:30-0500 SaO2% (BldA) [Mass fraction] 97 % Brock Modi Other [employer] Other 07-30-2022 12:30-0500 Systolic blood pressure 122 mm[Hg] Brock Modi Other [employer] Other Encounters Encounter Date Encounter Type Care Provider Facility Start: 12-14-2024 End: 12-14-2024 ambulatory [facility] Start: 12-11-2024 End: 12-11-2024 ambulatory [facility] Start: 11-25-2024 End: 11-25-2024 ambulatory Anjana Recio [facility] Work Phone: Start: 11-25-2024 End: 11-25-2024 Departed Referred Anjana Recio MD Work Phone: [facility] Start: 11-16-2024 End: 11-16-2024 Telephone encounter [facility] Start: 11-14-2024 End: 11-15-2024 Evaluation and management of inpatient [facility] Start: 10-31-2024 End: 10-31-2024 Patient encounter procedure [facility] 14 [facility] Comment on above: Infrarenal abdominal aortic aneurysm (AAA) without rupture; Encounter for therapeutic drug monitoring Start: 10-31-2024 End: 10-31-2024 ambulatory [facility] Start: 09-20-2024 End: 09-20-2024 ambulatory [facility] Start: 09-20-2024 End: 09-20-2024 Encounter for preprocedural cardiovascular examination [facility]ulatory Start: 09-20-2024 End: 09-20-2024 Office consultation new/estab patient 80 min Alok Headleydon DO Work Phone: [facility] Comment on above: Preop cardiovascular exam; Atherosclerosis of [place] coronary artery of [place] heart without angina pectoris; Ischemic cardiomyopathy; Past myocardial infarction; Mixed hyperlipidemia; Essential hypertension; Murmur, heart; Moderate chronic obstructive pulmonary disease (Multi); Lung mass; Obesity (BMI 35.0-39.9 without comorbidity); Current smoker Start: 09-20-2024 End: 09-20-2024 Patient encounter status Alok Headleydon DO Work Phone: [facility] Start: 09-14-2024 ambulatory BROCK MODI [facility] Start: 09-14-2024 End: 09-14-2024 Office outpatient visit 25 minutes Rom Pierre MD Work Phone: [facility] Comment on above: Infrarenal abdominal aortic aneurysm (AAA) without rupture (CMS-HCC) (Primary Dx); Cigarette smoker motivated to quit; Bilateral carotid bruits Start: 09-14-2024 End: 09-14-2024 ambulatory [facility] Start: 09-12-2024 End: 09-12-2024 ambulatory [facility] Start: 09-11-2024 End: 09-12-2024 Clinisync Result Encounter Rom Pierre MD Work Phone: [facility] External Department Unsolicited Start: 09-11-2024 End: 09-12-2024 Clinisync Result Encounter Rom Pierre MD Work Phone: [facility] External Department Unsolicited Start: 05-29-2024 End: 05-29-2024 ambulatory [facility] Work Phone: Start: 05-29-2024 End: 05-29-2024 Patient encounter procedure [facility] Work Phone: Start: 05-26-2024 Non-patient / Non-visit [facility] Work Phone: Start: 05-11-2024 Non-patient / Non-visit [facility] Work Phone: Start: 05-08-2024 Non-patient / Non-visit [facility] Work Phone: Start: 05-07-2024 Non-patient / Non-visit [facility] Work Phone: Start: 03-09-2024 End: 03-09-2024 Office outpatient visit 25 minutes Rom Pierre MD Work Phone: [facility] Surgery Comment on above: Infrarenal abdominal aortic aneurysm (AAA) without rupture ([facility]) (Primary Dx); Bilateral carotid bruits; Cigarette smoker Start: 03-03-2024 End: 03-03-2024 [address] Start: 02-24-2024 End: 02-24-2024 ambulatory [facility] Work Phone: Start: 02-24-2024 End: 02-24-2024 Patient encounter procedure [facility] Work Phone: Start: 01-05-2024 End: 01-05-2024 ambulatory [facility] Work Phone: Start: 01-05-2024 End: 01-05-2024 Patient encounter procedure [facility] Work Phone: Start: 12-13-2023 End: 12-13-2023 [facility] Work Phone: Start: 12-13-2023 End: 12-13-2023 Patient encounter procedure [facility] Work Phone: Start: 11-25-2023 End: 11-25-2023 Patient encounter procedure [facility] Work Phone: Start: 10-26-2023 End: 10-26-2023 [facility] Work Phone: Start: 10-26-2023 End: 10-26-2023 Patient encounter procedure [facility] Work Phone: Start: 10-09-2023 Non-patient / Non-visit [facility] Work Phone: Start: 10-04-2023 End: 10-04-2023 Patient encounter procedure [facility] Work Phone: Start: 10-04-2023 Non-patient / Non-visit [facility] Work Phone: Start: 09-14-2023 End: 09-14-2023 Office outpatient visit 15 minutes Alok Webber DO Work Phone: [facility] Comment on above: Atherosclerosis of n ative coronary artery of [place] heart without angina pectoris; Essential hypertension, benign; Mixed hyperlipidemia; Ischemic cardiomyopathy; Past myocardial infarction; Moderate chronic obstructive pulmonary disease (CMS/HCC); Obesity (BMI 35.0-39.9 without comorbidity); Current smoker Start: 09-03-2023 End: 09-03-2023 ambulatory Brock Ly Other [employer] Other Start: 09-03-2023 Telephone encounter Brock Ly [facility] Start: 08-24-2023 Orders Only Kendal Hirschjennifer HUDDLESTONN [facility] Comment on above: Abdominal aortic ane urysm (AAA) without rupture, unspecified part (CMS-HCC) (Primary Dx); Obstructive chronic bronchitis with exacerbation (CMS-HCC); Obesity with body mass index (BMI) of 30.0 to 39.9 Start: 08-06-2023 End: 08-06-2023 ambulatory Brock Modi Other [employer] Other Start: 08-06-2023 Office outpatient vi sit 15 minutes Brock Modi [facility] Start: 08-06-2023 End: 08-06-2023 Patient encounter procedure [facility] Work Phone: Start: 08-05-2023 End: 08-05-2023 ambulatory Brock Ly Other [employer] Other Start: 08-05-2023 Telephone encounter Brock Modi [facility] Start: 08-05-2023 End: 08-05-2023 Office outpatient [...] 07-16-2023 End: 07-16-2023 ambulatory Brock Ly Other [employer] Other Start: 07-16-2023 Telephone encounter Brock Ly [facility] Start: 06-24-2023 End: 06-24-2023 ambulatory Brocklindsay Modi Other [employer] Other Start: 06-24-2023 Office outpatient vi sit 15 minutes Brock Modi [facility] Start: 04-07-[address] Alok Webber Facility: Start: 04-02-2023 End: 04-02-2023 ambulatory Brock Modi Other [employer] Other Start: 04-02-2023 Telephone encounter Brock Modi [facility] Start: 03-19-2023 End: 03-19-2023 ambulatory Brock Modi Other [employer] Other Start: 03-19-2023 Telephone encounter Brock Modi [facility] Start: 03-16-2023 End: 03-16-2023 ambulatory Brock Modi Other [employer] Other Start: 03-16-2023 Office outpatient vi sit 15 minutes Brock Modi [facility] Start: 02-04-2023 End: 02-04-2023 ambulatory Brock Modi Other [employer] Other Start: 02-04-2023 Office outpatient vi sit 15 minutes Brock Modi [facility] Start: 01-29-2023 End: 01-29-2023 ambulatory Viral Yang Other [employer] Other Start: 01-29-2023 Telephone encounter Viral Yang [facility] Start: 01-27-2023 Rx Renewal Brock Modi Work Phone: [facility] [place] 250 DO Work Phone: Start: 01-19-2023 Patient encounter procedure Brock Modi Work Phone: [facility] [address] [place] Work Phone: Start: 01-14-2023 End: 01-14-2023 ambulatory Brock Modi Other [employer] Other Start: 01-14-2023 Telephone encounter Brock Modi [facility] Start: 12-24-2022 Office outpatient vi sit 40 minutes Brock Modi Work Phone: [facility] 250 DO Work Phone: Start: 12-24-[address] Alok Webber Facility: Start: 12-04-2022 End: 12-04-2022 ambulatory Brock Modi Other [place] [employer] Other Start: 12-04-2022 Telephone encounter Brock Modi [facility] Start: 12-03-2022 End: 12-03-2022 ambulatory Brock Modi Other [place] [employer] Other Start: 12-03-2022 Telephone encounter Brock Modi [facility] Start: 11-27-2022 End: 11-27-2022 ambulatory Wagner Marrufo Other [employer] Other Start: 11-27-2022 Office outpatient vi sit 25 minutes Wagner Marrufo [facility] Start: 11-12-2022 End: 11-12-2022 ambulatory Brock Modi Other [employer] Other Start: 11-12-2022 Office outpatient vi sit 15 minutes Brock Modi [facility] Start: 11-04-2022 ambulatory JANINE Burton ty:H1 Start: 11-03-2022 End: 11-03-2022 ambulatory MD Brock Modi Work Phone: [facility] Work Phone: Start: 11-03-2022 End: 11-03-2022 Patient encounter procedure MD Brock Modi Work Phone: [facility]-CT Scan [place] Work Phone: Start: 11-02-2022 Patient encounter procedure Brock Modi Work Phone: [facility] 250 DO Work Phone: Start: 11-02-2022 ambulatory Janine Cunha Facility:1 [id number] Start: 10-29-2022 Chart Update Brock Modi Work Phone: [facility] 600 DO Work Phone: Start: 10-28-2022 End: 10-28-2022 ambulatory MD Brock Modi Work Phone: [facility] Work Phone: Start: 10-28-2022 End: 10-28-2022 Patient encounter procedure MD Brock Modi Work Phone: [facility]-Lab [facility] [place] Work Phone: Start: 10-27-2022 End: 10-27-2022 ambulatory Brock Modi Other [employer] Other Start: 10-27-2022 Telephone encounter Brock Modi [facility] Start: 10-21-2022 Transitional care ma daron srvc 14 day discharge Brock Modi Work Phone: [facility] 250 DO Work Phone: Start: 10-21-2022 End: 10-21-2022 ambulatory Janine Cunha [place] [employer] Other Start: 10-21-2022 Telephone encounter Adi Campos [facility] 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 Brock Modi Facility:[id number] Start: 10-10-2022 End: 10-13-2022 Evaluation and management of inpatient MD Brock Modi Work Phone: [facility]-4 [place] [facility] Work Phone: Start: 10-10-2022 End: 10-10-2022 ambulatory COLIN TREADWELL Facility:H1 Start: 09-09-2022 Office outpatient ne w 45 minutes Wagner Niru [facility] Start: 09-09-2022 End: 09-09-2022 ambulatory DO Wagner Marrufo Work Phone: [facility] Work Phone: Start: 09-09-2022 End: 09-09-2022 Patient encounter procedure DO Wagner Marrufo Work Phone: [facility]-XRay [place] [facility] Start: 09-07-2022 End: 09-08-2022 ambulatory COLIN TREADWELL Facility:H1 Start: 08-13-2022 End: 08-13-2022 ambulatory Brock Modi Other [employer] Other Start: 08-13-2022 Office outpatient vi sit 15 minutes Brock Modi [facility] Start: 08-10-2022 End: 08-11-[address] BROCK MODI Facility:H1 Start: 07-30-2022 End: 07-30-2022 ambulatory Brock Modi Other [employer] Other Start: 07-30-2022 Office outpatient vi sit 25 minutes Brock Modi [facility] Start: 07-28-2022 End: 07-28-2022 ambulatory Brock Modi Other [employer] Other Start: 07-28-2022 Telephone encounter Brock Modi [facility] Start: 07-10-2022 End: 07-11-[address] CAR LIGHT Facility:H1 Start: 07-08-2022 End: 07-08-[address] JANELLE LAL . Facility:H1 Start: 07-05-2022 End: 07-05-[address] RUBÉN DALY Facility:H1 Start: 07-03-2022 End: 07-04-[address] ARLIN CUNHA Facility:H1 Start: 02-03-2022 End: 02-03-[address] ARLIN CUNHA Facility:H1 Patient encounter status Brock Modi Work Phone: [facility] 250 DO Work Phone: Procedures Date Procedure [...] Author Start: 11-14-2025 Depression Screening Depression Screening [facility] Start: 11-14-2025 Tobacco Screening Tobacco Screening [facility] Start: 10-31-2025 Adult BMI Screening Adult BMI Screening [facility] Start: 10-31-2025 Tobacco Screening Tobacco Screening [facility] Start: 09-20-2025 End: 09-20-2025 Patient encounter procedure 09/20/2025 11:30 AM EST Office Visit [facility] [address] [facility] [address] [place] [address] Alok Webber DO [address] [facility] [address] [place] [address] [facility] Start: 09-14-2025 Adult BMI Screening Adult BMI Screening [facility] Start: 09-14-2025 Tobacco Screening Tobacco Screening [facility] Start: 2025 Pneumococcal Vaccine: Pediatrics (0 to 5 Years) and At-Risk Patients (6 to 64 Years) (3 - PPSV23 or PCV20) Pneumococcal Vaccine: Pediatrics (0 to 5 Years) and At-Risk Patients (6 to 64 Years) (3 - PPSV23 or PCV20) [facility] Start: 03-26-2025 Influenza vaccination Influenza Vaccine [facility] Start: 03-09-2025 Adult BMI Screening Adult BMI Screening [facility] Start: 03-09-2025 Tobacco Screening Tobacco Screening [facility] Start: 12-14-2024 End: 12-14-2024 Patient encounter procedure 12/14/2024 11:20 AM EDT Office Visit [facility] [address] [place] [phone] Rom Pierre MD [address] [place] [address] [facility] Vascular Surgery Start: 12-11-2024 End: 12-11-2024 Patient encounter procedure 12/11/2024 10:30 AM EDT Appointment [facility] - CT Imaging [address] [place] [phone] Rom Pierre MD [address] [place] [address] [facility] - CT Imaging Start: 11-25-2024 Urine culture [facility] Start: 11-25-2024 Bacteria identified in Urine by Culture Urine Culture [facility] Start: 11-14-2024 End: 11-14-2024 Admission to same day surgery center 11/14/2024 11:30 AM EDT - 11/14/2024 2:30 PM EDT Surgery [address] [place] [phone] Rom Pierre MD [address] [place] [address] ENDOGRAFT BYPASS ABDOMINAL AORTA [41179 (CPT )] [facility] Comment on above: ENDOGRAFT BYPASS ABDOMINAL AORTA [[id number] (CPT )] Start: 11-14-2024 End: 11-14-2024 Byp oth/thn vein aortobifemoral ENDOGRAFT BYPASS ABDOMINAL AORTA Infrarenal abdominal aortic aneurysm (AAA) without rupture Encounter for therapeutic drug monitoring 11/14/2024 11:30 AM EDT [facility] Start: 11-14-2024 Subsequent hospital visit by physician 11/14/2024 11:30 AM EDT Hospital Encounter [address] [place] [phone] Rom Pierre MD [address], [address] [address] [facility] Surgery Start: 09-20-2024 End: 09-20-2025 Alanine aminotransferase [Enzymatic activity/volume] in Serum or Plasma by With P-5'-P Alanine Aminotransferase Lab Routine Mixed hyperlipidemia Expected: 09/20/2024 (Approximate), Expires: 09/20/2025 [facility] Work Phone: Comment on above: Expected: 09/20/2024 (Approximate), Expi res: 09/20/2025 Start: 09-20-2024 End: 09-20-2025 Aspartate aminotransferase [Enzymatic activity/volume] in Serum or Plasma by With P-5'-P Aspartate Aminotransferase Lab Routine Mixed hyperlipidemia Expected: 09/20/2024 (Approximate), Expires: 09/20/2025 [facility] Work Phone: Comment on above: Expected: 09/20/2024 (Approximate), Expi res: 09/20/2025 Start: 09-20-2024 End: 09-20-2025 C reactive protein [Mass/volume] in Serum or Plasma by High sensitivity method C-Reactive Protein, High Sensitivity Lab Routine Atherosclerosis of [place] coronary artery of [place] heart without angina pectoris Ischemic cardiomyopathy Past myocardial infarction Mixed hyperlipidemia Essential hypertension Expected: 09/20/2024 (Approximate), Expires: 09/20/2025 [facility] Work Phone: Comment on above: Expected: 09/20/2024 (Approximate), Expi res: 09/20/2025 Start: 09-20-2024 End: 09-20-2025 Complete Pulmonary Function Test (Spirometry/DLCO/Lung Volumes) Complete Pulmonary Function Test (Spirometry/DLCO/Lung Volumes) PFT Routine Lung mass Expected: 09/20/2024 (Approximate), Expires: 09/20/2025 [facility] Service Area Work Phone: Comment on above: Expected: 09/20/2024 (Approximate), Expi res: 09/20/2025 Start: 09-20-2024 End: 09-20-2025 Lipid 1996 panel - Serum or Plasma Lipid Panel Lab Routine Mixed hyperlipidemia Expected: 09/20/2024 (Approximate), Expires: 09/20/2025 [facility] Work Phone: Comment on above: Expected: 09/20/2024 (Approximate), Expi res: 09/20/2025 Start: 09-20-2024 End: 09-20-2025 XR Chest 2 Views XR chest 2 views Imaging Routine Lung mass Expected: 09/20/2024 (Approximate), Expires: 09/20/2025 [facility] Work Phone: Comment on above: Expected: 09/20/2024 (Approximate), Expi res: 09/20/2025 Start: 09-20-2024 End: 09-20-2024 Patient encounter procedure 09/20/2024 9:00 AM EST Office Visit [facility] [address] [place] [address] Alok Webber DO [address] [place] [address] [facility] Start: 09-09-2024 End: 09-09-2024 CTA Abdominal vessels and Pelvis vessels W contrast IV CT angiogram abdomen and pelvis Imaging Routine Infrarenal Abdominal Aortic Aneurysm (Aaa) Without Rupture ([facility]) Expected: 09/09/2024 (Approximate), Expires: 09/09/2024 [employer] Work Phone: Comment on above: Expected: 09/09/2024 (Approximate), Expi res: 09/09/2024 Start: 08-05-2024 Adult [facility] Start: 08-05-2024 Tobacco [facility] Start: 03-26-2024 COVID-19 Vaccine ( season) COVID-19 Vaccine ( season) [facility] Start: 03-26-2024 Influenza vaccination [facility] Start: 03-09-2024 End: 03-09-2025 Echo complete W/O contrast Echo complete W/O contrast Echocardiography Routine Infrarenal abdominal aortic aneurysm (AAA) without rupture ([facility]) Bilateral carotid bruits Cigarette smoker Expected: 03/09/2024, Expires: 03/09/2025 [facility] Comment on above: Expected: 03/09/2024, Expires: Start: 03-09-2024 End: 03-09-2025 US Carotid arteries - bilateral Vas carotid duplex bilateral Vascular Ultrasound Routine Bilateral carotid bruits Expected: 03/09/2024, Expires: 03/09/2025 [facility] Comment on above: Expected: 03/09/2024, Expires: Start: 02-17-2024 End: 02-17-2024 Patient encounter procedure 02/17/2024 10:10 AM EDT Office Visit [facility] [address] [place] [address] Rom Pierre MD [address], [address] [address] [facility] Start: 09-05-2023 Tobacco Counseling Tobacco Counseling [facility] Start: 08-24-2023 End: 08-24-2024 CTA Abdominal vessels and Pelvis vessels W contrast IV CT angiogram abdomen and pelvis Imaging Routine Abdominal Aortic Aneurysm (Aaa) Without Rupture, Unspecified Part ([facility]) Obstructive chronic bronchitis with exacerbation ([facility]) Obesity with body mass index (BMI) of 30.0 to 39.9 Expected: 08/24/2023, Expires: 08/24/2024 [employer] Work Phone: Comment on above: Expected: 08/24/2023, [...] (3 of 3 - PCV20 or PCV21) [facility] Start: 04-07-2023 FUV, Provider: Alok Webber, Status: Pen, Time: 11:20 AM FUV, Provider: Alok Webber, Status: Pen, Time: 11:20 AM -[facility] 250 DO Work Phone: Start: 03-26-2023 Influenza vaccination [facility] Start: 01-19-2023 FUV, Provider: Alok Webber, Status: Pen, Time: 2:30 PM FUV, Provider: Alok Webber, Status: Pen, Time: 2:30 PM -[facility] 250 DO Work Phone: Start: 11-02-2022 HOLTER 48, Provider: VERONICA LANGLEY ELECTRONIC ORGAN TECHNICIAN 1,[id number], Status: Pen, Time: 2:30 PM HOLTER 48, Provider: VERONICA LANGLEY ELECTRONIC ORGAN TECHNICIAN 1,[id number], Status: Pen, Time: 2:30 PM -[facility] 250 DO Work Phone: Start: 10-13-2022 [facility] Start: 10-10-2022 Dilation of Coronary Artery, Two Arteries with Three Drug-eluting Intraluminal Devices, Percutaneous Approach Dilation of Coronary Artery, Two Arteries with Three Drug-eluting Intraluminal Devices, Percutaneous Approach [facility] Start: 10-10-2022 Fluoroscopy of Left Heart using Low Osmolar Contrast Fluoroscopy of Left Heart using Low Osmolar Contrast [facility] Start: 10-10-2022 Fluoroscopy of Multiple Coronary Arteries using Low Osmolar Contrast Fluoroscopy of Multiple Coronary Arteries using Low Osmolar Contrast [facility] Start: 10-10-2022 Measurement of Cardiac Sampling and Pressure, Left Heart, Percutaneous Approach Measurement of Cardiac Sampling and Pressure, Left Heart, Percutaneous Approach [facility] Start: 10-10-2022 Hospital admission [facility] Start: 10-10-2022 [facility] Start: 10-10-2022 Hospital admission [facility] Start: 10-10-2022 [facility] Start: 2020 RSV High Risk: (Elderly (60+) or Population) (1 - Risk 60-74 years 1-dose series) RSV High Risk: (Elderly (60+) or Population) (1 - Risk 60-74 years 1-dose series) [facility] Start: 2010 Administration of varicella zoster vaccine Zoster (Shingles) Vaccine (1 of 2) [facility] Start: 2010 Zoster Vaccines (1 of 2) Zoster Vaccines (1 of 2) [facility] Start: 1982 DTaP/Tdap/Td Vaccines (1 - Tdap) DTaP/Tdap/Td Vaccines (1 - Tdap) [facility] Start: 1979 DTaP,Tdap and Td Vaccines (1 - Tdap) DTaP,Tdap and Td Vaccines (1 - Tdap) [facility] Start: 1978 Adult BMI Follow Up Plan Adult BMI Follow Up Plan [facility] Start: 1978 Diabetes mellitus screening Diabetes Screening [facility] Start: 1978 Hepatitis C screening Hepatitis C Screening [facility] Start: 1972 Depression Screening Depression Screening [facility] Start: 1961 MMR Vaccines (1 of 1 - Standard series) MMR Vaccines (1 of 1 - Standard series) [facility] Start: 1960 COVID-19 Vaccine (#1) COVID-19 Vaccine (#1) [facility] Start: 1960 HIV screening HIV Screening [facility] Start: 1960 Lipid panel Lipid Panel [facility] Start: 1960 Screening for malignant neoplasm of colon [facility] Start: 1960 Tobacco Counseling Tobacco Counseling [facility] Start: 1960 Yearly Adult Physical Yearly Adult Physical [facility] End: 08-22-2024 Creatinine includes GFR, serum Creatinine includes GFR, serum Lab Routine Abdominal Aortic Aneurysm (Aaa) Without Rupture, Unspecified Part ([facility]) Obstructive chronic bronchitis with exacerbation ([facility]) Obesity with body mass index (BMI) of 30.0 to 39.9 Chronic obstructive pulmonary disease, unspecified COPD type ([facility]) 1 Occurrences starting 08/22/2023 until 08/22/2024 [employer] Comment on above: 1 Occurrences starting 08/22/2023 until 08/22/2024 End: 08-24-2024 Creatinine includes GFR, serum Creatinine includes GFR, serum Lab Routine Abdominal Aortic Aneurysm (Aaa) Without Rupture, Unspecified Part ([facility]) Obstructive chronic bronchitis with exacerbation ([facility]) Obesity with body mass index (BMI) of 30.0 to 39.9 1 Occurrences starting 08/24/2023 until 08/24/2024 [employer] Work Phone: Comment on above: 1 Occurrences starting 08/24/2023 until 08/24/2024 End: 03-09-2025 Creatinine includes GFR, serum Creatinine includes GFR, serum Lab Routine Infrarenal abdominal aortic aneurysm (AAA) without rupture ([facility]) 1 Occurrences starting 03/09/2024 until 03/09/2025 Zdorovio Comment on above: 1 Occurrences starting 03/09/2024 until 03/09/2025 Patient Education Coronary Angio plasty (DC) Coronary Stenting (DC) Angina (DC) Chest Pain (DC) Drug Eluting Stents [facility] Work Phone: Patient referral [facility] Work Phone: US Lower extremity v ein - right [facility] Immunizations Immunization Date Immunization Notes Care Provider Fa cility 05-02-2018 pneumococcal Conjuga te, unspecified formulation; Translations: [Need for prophylactic vaccination against Streptococcus pneumoniae (pneumococcus)] Brock Modi Other [employer] Other 05-02-2018 pneumococcal polysaccharide vaccine, 23 valent Brock Modi Work Phone: [facility] 05-26-2017 pneumococcal conjuga te vaccine, 13 valent Brock Modi Work Phone: [facility] Payers Date Payer Category Payer Self-pay 2022 Medicaid [id number] 2022 Medicaid [id number] 2021 Private Health Insurance [employer] Member Subscriber Plan / Payer (Effective 2021-Present) Name: Hector Gaspar Relation to Subscriber: Self Name: Hector Gaspar Payer ID: Not on file Type: Not on file Address: [place] [id number] 2019 Unknown 1960 Unknown [id number] 2.840.1.839147.3.579.2. 593 1960 Unknown [id number] 2.16.840.1.124262.3.579.2. 593 1960 Unknown [id number] 2.16.840.1.344873.3.579.2. 593 1960 Unknown [id number] 2.840.1.863410.3.579.2. 593 1960 Unknown [id number] 2.840.1.553557.3.579.2. 593 1960 Unknown [id number] 2.16.840.1.358846.3.579.2. 593 1960 Unknown [id number] 2.16.840.1.823056.3.579.2. 593 1960 Unknown [id number] 2.16840.1.555273.3.579.2. 593 1960 Unknown [id number] 2.16.840.1.128712.3.579.2. 593 1960 Unknown [id number] 2.16.840.1.866226.3.579.2. 356 1960 Unknown [id number] 2.16.840.1.309400.3.579.2. 356 1960 Unknown [id number] 2.16.840.1.410017.3.579.2. 356 1960 Unknown [id number] 2.16.840.1.213791.3.579.2. 356 1960 Unknown [id number] 2.16.840.1.646939.3.579.2. 356 1960 Unknown [id number] 2.16.840.1.417866.3.579.2. 1244 1960 Unknown [id number] 2.16.840.1.388488.3.579.2. 1286 1960 Unknown [id number] 2.16.840.1.285938.3.579.2. 1286 1960 Unknown [id number] 2.16.840.1.334878.3.579.2. 1286 1960 Unknown [id number] 2.16.840.1.934595.3.579.2. 1286 1960 Unknown [id number] 2.16.840.1.328580.3.579.2. 1286 1960 Unknown [id number] 2.16.840.1.509508.3.579.2. 1286 1960 Unknown [id number] 2.16.840.1.324383.3.579.2. 1286 1960 Unknown [id number] 2.16.840.1.140129.3.579.2. 1286 1960 Unknown [id number] 2.16.840.1.353773.3.579.2. 1286 1959 Unknown [id number] 2.16.840.1.507843.19 Unknown [id number] 2.16.840.1.529061.3.579.2. 531 Social History Date Type Detail Facility Tobacco smoking stat us AKIS Unknown if ever smoked [facility] Work Phone: Start: 1960 Sex Assigned At Male F [facility] Start: 08-06-2023 End: 11-14-2024 Sex Assigned At [facility] [employer] Other Start: 10-10-2022 End: 10-10-2022 Tobacco smoking status NHIS Smoker (finding) [facility] Start: 08-06-2023 End: 11-14-2024 Daily caffeine consumption Daily caffeine consumption -[facility] 250 DO Work Phone: Comment on above: 1/2 gallon coffee da darrion; 5-6 cig daily; 8 cigs daily; Start: 08-08-1991 End: 03-09-2024 Tobacco smoking status AKIS Smokes tobacco daily [facility] Start: 08-08-1991 History of tobacco use Cigarette Smo ker [facility] Start: 09-14-2023 End: 11-15-2024 Alcohol intake Lifetime non-drinker (finding) [facility] Start: 1960 Sex Assigned At Not on file P [facility] Start: 09-04-2023 End: 09-20-2024 Exposure to SARS-CoV-2 (event) Not sure [facility] Start: 08-26-2022 End: 03-09-2024 Tobacco use and exposure Smokeless tobacco non-user [facility] Within the past 12 months we worried whether our food would run out before we got money to buy more. Never True [facility] Start: 08-26-2022 Tobacco Comment pack and a nathanael f a day pt reports he is really trying to quit 09/04/21 [facility] Start: 08-01-2021 End: 11-27-2024 Sex [facility] (finding) [facility] Has the [employer], [employer], [employer], or water company threatened to shut off services in your home in past 12Mo No [facility] How often to you hav e a drink containing alcohol? Never [facility] Medical Equipment Procedure Code Equipment Code Equipment Origin al Text Equipment Identifier Dates Drug-eluting coronary artery stent, non-bioabsorbable- polymer-coated [id number] FDA Start: 10-10-2022 Drug-eluting coronary artery stent, non-bioabsorbable- polymer-coated [id number] FDA Start: 10-10-2022 Drug-eluting coronary artery stent, non-bioabsorbable- polymer-coated [id number] FDA Start: 10-10-2022 [employer] Endoanch or System [id number] FDA Start: 11-14-2024 Graft Stnt 103mm 14-36mm 20fr Endurant Iis 2 Brch Evas Ntnl - [id number] - [id number] Start: 11-14-2024 Graft Stnt 124mm 20-16mm 16fr Endurant Ii 177-197mm - [id number] - [id number] Start: 11-14-2024 Comment on above: Description: RIGHT C OMMON ILIAC Graft Stnt 146mm 16mm 20fr Endurant Ii 2 Brch Evas Aaa - [id number] - [id number] Start: 11-14-2024 Goals Date Patient Goal Desired Activity /State Personal health goal Functional Status Date Assessment Result Facility 10-13-2022 Functional status Patient at Baseline [facility] Work Phone: Mental Status Date Assessment Result Facility 10-13-2022 Cognitive function Cognitive Sta tus Patient at Baseline [facility] Work Phone: Clinical Notes 07-30-2022 to [...] is going to be evaluated at the [place] [facility]. documented in this encounter [facility] 11-16-2024 Telephone encounter Note Pt is s/p Evar on 11-14- called this morning and has a low grade fever. I spoke to Dr Pierre and he wants pt to be seen today by one of our ANNIA's or to be evaluated in the ER-pt states he has no ride to [place] today so he is going to be evaluated at the [place] [facility]. [facility] 10-31-2024 History and physical note Images from the original note were not included. PRE-ADMISSION TESTING HISTORY AND PHYSICAL EXAM DATE: 10/31/24 PCP: SEYMOUR HARPER MD HISTORY OF PRESENT ILLNESS: Hector Gaspar Sr., a 64 y.o. White or male, presents to [facility] for a pre-surgical H&P. The patient [...] Allergic Asthma COPD (chronic obstructive pulmonary disease) ([facility]) Coronary artery disease stent to RCA and CX Fractures rib years ago Hyperlipidemia Hypertension Injury of back Myocardial infarction ([facility]) Pneumonia 2023 Shortness of breath Sleep apnea [...] place, and time. PERTINENT TESTING AVAILABLE IN [facility] (WITHIN THE PAST 2 YEARS): EK09/20/2024 Echo: [...] Vas carotid duplex bilateral Result Date: 03/15/2024 [place] [address] Ultrasound Report Signed Patient: HECTOR GASPAR MR#: [id number] : 1960 Acct:[id number] Age/Sex: 63 / M ADM Date: 03/14/24 Loc: US Attending Dr: Rom Pirere M.D. Ordering Physician: Rom Pierre M.D. Date of Service: 03/14/24 Procedure(s): US carotid duplex BI Accession Number(s): [id number] cc: Brock Modi M.D.; Rom Pierre M.D. [place] [id number] Patient Name: HECTOR GASPAR MRN: [id number] date: 1960 Sex: M Assigned Patient Location: Current Patient Location: Accession/Order Number: [id number] Exam Date: 03/14/2024 14:01 Report Date: 03/15/2024 [...] standard protocol. ICA-CCA ratios are calculated with sales representative groceries peak-systolic velocities and recorded. Vertebral arteries are [...] Signed By: 03/15/24 1030 DD/ 1027 TD/TT: Paid Search Manager: Pulmonary function testing: No results found. RECENT [...] the most recent lab values available in [facility] at the time the H&P was signed. ASSESSMENT / DIAGNOSIS: ABDOMINAL AORTIC ANEURYSM PLAN: Hector Gaspar Sr. is scheduled for Endograft Bypass Abdominal Aorta on 11/14/[address] Pierre. Cardiology clearance will be given after the patient has a chest x-ray, pulmonary function test and echo according to cardiology note in media. ROOPA Damon 10/31/24 1535 [employer] Work Phone: 10-31-2024 History and physical note Images from the original note were not included. PRE-ADMISSION TESTING HISTORY AND PHYSICAL EXAM DATE: 10/31/24 PCP: SEYMOUR HARPER MD HISTORY OF PRESENT ILLNESS: Hector Gaspar Sr., a 64 y.o. White or male, presents to [facility] for a pre-surgical H&P. The patient [...] Allergic Asthma COPD (chronic obstructive pulmonary disease) ([facility]) Coronary artery disease stent to RCA and CX Fractures rib years ago Hyperlipidemia Hypertension Injury of back Myocardial infarction ([facility]) Pneumonia 2023 Shortness of breath Sleep apnea [...] place, and time. PERTINENT TESTING AVAILABLE IN [facility] (WITHIN THE PAST 2 YEARS): EK09/20/2024 Echo: [...] Vas carotid duplex bilateral Result Date: 03/15/2024 [place] [address] Ultrasound Report Signed Patient: HECTOR GASPAR MR#: [id number] : 1960 Acct:[id number] Age/Sex: 63 / M ADM Date: 03/14/24 Loc: US Attending Dr: Rom Pierre M.D. Ordering Physician: Rom Pierre M.D. Date of Service: 03/14/24 Procedure(s): US carotid duplex BI Accession Number(s): [id number] cc: Brock Modi M.D.; Rom Pierre M.D. [address] [address] Patient Name: HECTOR GASPAR MRN: [id number] date: 1960 Sex: M Assigned Patient Location: US Current Patient Location: Accession/Order Number: [id number] Exam Date: 03/14/2024 14:01 Report Date: 03/15/2024 10:27 At the request of: ROM PIERRE Procedure: US carotid duplex BI DUPLEX ULTRASOUND EXAMINATION OF THE CAROTID ARTERIES. COMPARISON: None. HISTORY / INDICATIONS: Carotid bruit. TECHNIQUE: Bilateral common carotid arteries, extracranial internal and external carotid arteries are evaluated with dricsoll-scale imaging, color Doppler, and spectral analysis according to a standard protocol. ICA-CCA ratios are calculated with sales representative groceries peak-systolic velocities and recorded. Vertebral arteries are [...] Signed By: 03/15/24 1030 DD/ 1027 TD/TT: Paid Search Manager: Pulmonary function testing: No results found. RECENT [...] the most recent lab values available in [facility] at the time the H&P was signed. ASSESSMENT / DIAGNOSIS: ABDOMINAL AORTIC ANEURYSM PLAN: Hector Gaspar Sr. is scheduled for Endograft Bypass Abdominal Aorta on 11/14/[address] Pierre. Cardiology clearance will be given after the patient has a chest x-ray, pulmonary function test and echo according to cardiology note in media. Shabnam Otero APRN-POLITICAL GEOGRAPHER 10/31/24 7553 documented in this encounter [facility] 10-31-2024 Instructions Valentina Leon RN - 10/31/2024 2:30 PM EDT Your surgery/procedure is scheduled at on 11/14/2024 at 11:30 am Arrival Time 9:30 am [facility] Address: [address] [place] [address] Park in P1 Parking lot located on [facility]. Report to the Entrance B. Check in at the information desk the surgery. The waiting room located on the second floor. If you have any questions prior to surgery, please call Pre-Admission Clinic at [phone] between 7:30 am and 4:30 pm Wednesday through Wednesday. If you have questions the morning of surgery, please call the Pre-op Department at [phone]. Notify your SURGEON if you develop any [...] piercings ,hair extensions that contain metal, nail surinamese, make-up, and contact lens. You may brush [...] RIGHTS AND RESPONSIBILITIES As a patient at [facility], you have the right to: Receive medical care and be informed of who is taking care of you Be treated with dignity and respect Have a family member/sales representative groceries of choice and your physician notified of your admission Receive information and actively participate in decisions about your care and treatment Refuse care, treatment and services Decide who may provide your support and speak for you Access uatsdin and spiritual services Participate in ethical issues [...] of hospital charges and payment methods 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 are to: Provide information about health [...] RIGHTS AND RESPONSIBILITIES As a patient at [facility], you have the right to: Receive medical care and be informed of who is taking care of you Be treated with dignity and respect Have a family member/sales representative groceries of choice and your physician notified of your admission Receive information and actively participate in decisions about your care and treatment Refuse care, treatment and services Decide who may provide your support and speak for you Access uatsdin and spiritual services Participate in ethical issues [...] of hospital charges and payment methods 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 are to: Provide information about health status to facilitate care, treatment and services Follow the treatment, plan, keep appointments and speak up when you do not understand the plan Respect the rights of other patients and healthcare personnel Follow organizational rules and regulations that support quality care and a safe environment Fulfill financial obligations as promptly as possible documented in this encounter [facility] 09-20-2024 History of Present illness Narrative [...] ASHD; patient sustained high risk non-ST elevation PA in October 10, 2022 with primary revascularization [...] an echocardiogram was performed last week at [place] or [place], read by outside physician, with normal left [...] 1. Preop cardiovascular exam 2. Atherosclerosis of [place] coronary artery of [place] heart without angina pectoris Follow Up In [...] discussion and plan. documented in this encounter [facility] Work Phone: 09-20-2024 Instructions Kate Cruz LPN [...] be sent through Care Everywhere.Heart Healthy Diet (Yi)documented in this encounter [facility] Work Phone: 09-14-2024 Evaluation + Plan note Associated Problem(s): Bilateral carotid bruits Carotid stenosis mild bilaterally S medical therapy. He is on aspirin statin and Plavix. We will continue those. [facility] 09-14-2024 Miscellaneous Notes Associated Problem(s): Bilateral carotid [...] proceed with repair. documented in this encounter [facility] 09-14-2024 Evaluation + Plan note Associated Problem(s): Cigarette smoker motivated to quit Counseled him for at least 3 minutes he is willing to quit [facility] 09-14-2024 Evaluation + Plan note Associated Problem(s): AAA (abdominal aortic aneurysm) without rupture (CMS-HCC) I discussed with him the finding in the CT scan. Discussed different options and he would like to proceed with repair. [facility] 09-14-2024 History of Present illness Narrative [...] History: Diagnosis Date AAA (abdominal aortic aneurysm) ([facility]) Allergic Past Surgical History: No past surgical [...] List AAA (abdominal aortic aneurysm) without rupture ([facility]) - Primary Current Assessment & Plan [...] seen today [facility] aaa, [facility]. Diagnoses and all orders for this visit: Infrarenal abdominal aortic aneurysm (AAA) without rupture ([facility]) Cigarette smoker motivated to quit Bilateral carotid bruits Rom Pierre MD, GHANSHYAM, RPVI, FSVS, FACS [facility] This note was created with the assistance of a speech recognition program. While intending to generate a timely document that accurately reflects the content of the visit, no guarantee can be provided that every grammatical or spelling mistake has been or will be identified or corrected. Thank you for your understanding. documented in this encounter [facility] 09-14-2024 Instructions Rom Pierre MD - 09/14/2024 10:40 AM EST Are You Ready To Kick The Habit? Free Tobacco Cessation Resources [facility] Centers provide all employees with free tobacco cessation services that include: Counseling to understand nicotine addiction Education about medications that can help you successfully quit Assistance with developing a plan to quit Call to set up an individual appointment or find out when group classes will be held: [facility]: [phone] [facility]: [phone] [facility]: [phone] : [phone] Quit Smoking Action Plan and Resources [facility] offers an eight-week, online smoking cessation plan to all [facility] employees, regardless of whether [place] is your medical insurance provider. Go to www.adQca.org/employeewell ness and click the Health Risk Assessment and Resources link to get started. In the Rbwtz3Hevesz menu, click Action Plans instead of Health Risk Assessment to access the Quit Smoking Action Plan. Additional smoking cessation resources are also available to all [facility] employees on the Zwlqv8Gmiopa web page at www.6fusion/quit smoking. [place] [facility] Cessation [facility] If [employer] is your medical insurance provider, there are more free resources available to you, including: No copays or deductibles on local tobacco cessation counseling services to help you quit Prescription assistance for tobacco cessation medications to help you quit For details about the tobacco cessation program available to [employer] members, go to www.6fusion (Search: Tobacco Cessation Program). [place] Tobacco Quit Line 7-021-FLSM-NOW ( ) is a toll-free, telephonic service that helps [place] residents quit smoking and using tobacco. It is staffed by experts who tailor a quit plan for you and provide you with advice. [place] Tobacco Quit Line 6-574-NEGS-NOW ( ) is a toll-free, telephonic service that helps [place] residents quit smoking and using tobacco. It is staffed by experts who tailor a quit plan for you and provide you with advice. Two weeks of nicotine replacement therapy may be provided at no charge, if needed. Additional Resources These national organizations also offer free information and resources to help you quit tobacco: [employer] [employer]--www.cancer.org/healthy/ stayawayfromtobacco [place] [employer]--www.heart.org (Search: Quit Smoking) Centers for Disease Control and Prevention--www.cdc.gov/tobacco [place] Lung [employer]--www.lungusa.org documented in this encounter [facility] 03-09-2024 Evaluation + Plan note Associated Problem(s): Cigarette smoker Counseled on smoking cessation at length. [facility] 03-09-2024 Evaluation + Plan note Associated Problem(s): Bilateral carotid bruits Best medical therapy and smoking cessation.Carotid duplex ultrasound [facility] 03-09-2024 Miscellaneous Notes Associated Problem(s): Cigarette [...] cessation in length. documented in this encounter [facility] 03-09-2024 Evaluation + Plan note Associated Problem(s): AAA (abdominal aortic aneurysm) without rupture (CMS-HCC) 5.2 cm infrarenal abdominal aortic aneurysm. We discussed different options. He would like to repeat his scan in 6 months. Continue to smoke. I counseled him on smoking cessation in length. 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 Diagnoses and all orders for this visit: Infrarenal abdominal aortic aneurysm (AAA) without rupture ([facility]) - CT angiogram abdomen and pelvis; Future [...] for your understanding. documented in this encounter [facility] 03-09-2024 Instructions Rom Pierre MD - 03/09/2024 10:20 AM EDT Are You Ready To Kick The Habit? Free Tobacco Cessation Resources [facility] Services [facility] Centers provide all employees with free tobacco cessation services that include: Counseling to understand nicotine addiction Education about medications that can help you successfully quit Assistance with developing a plan to quit Call to set up an individual appointment or find out when group classes will be held: [facility]: [phone] [facility]: [phone] [facility]: [phone] : [phone] Quit Smoking Action Plan and Resources [facility] offers an eight-week, online smoking cessation plan to all [facility] employees, regardless of whether [place] is your medical insurance provider. Go to [email or web address] [email or web address]/employeewell ness and click the Health Risk Assessment and Resources link to get started. In the Gzxzg5Jtwvbj menu, click Action Plans instead of Health Risk Assessment to access the Quit Smoking Action Plan. Additional smoking cessation resources are also available to all [facility] employees on the Ubszd2Tqbnek web page at www.Evisors.StudyEgg/quit smoking. [place] Tobacco [facility]essation [facility] If [place] is your medical insurance provider, there are more free resources available to you, including: No copays or deductibles on local tobacco cessation counseling services to help you quit Prescription assistance for tobacco cessation medications to help you quit For details about the tobacco cessation program available to [employer] members, go to www.Evisors.StudyEgg (Search: Tobacco Cessation Program). [place] Tobacco Quit Line 8-497-EUAF-NOW ( ) is a toll-free, telephonic service that helps [place] residents quit smoking and using tobacco. It is staffed by experts who tailor a quit plan for you and provide you with advice. [place] Tobacco Quit Line 5-358-YSCW-NOW ( ) is a toll-free, telephonic service that helps [place] residents quit smoking and using tobacco. It is staffed by experts who tailor a quit plan for you and provide you with advice. Two weeks of nicotine replacement therapy may be provided at no charge, if needed. Additional Resources These national organizations also offer free information and resources to help you quit tobacco: [employer] [employer]--www.cancer.org/healthy/ stayawayfromtobacco [place] Heart [employer]--www.heart.org (Search: Quit Smoking) Centers for Disease Control and Prevention--www.cdc.gov/tobacco [place] [employer]--www.lungusa.org documented in this encounter [facility] 09-14-2023 History of Present illness Narrative Subjective [...] ASHD; patient sustained high risk non-ST elevation PA in October 10, 2022 with primary revascularization [...] remains compliant on current DAPT and post PA therapies Recommendations: Discontinue ticagrelor, switch to clopidogrel [...] Disp: , Rfl: Assessment/Plan 1. Atherosclerosis of [place] coronary artery of [place] heart without angina pectoris 2. Essential hypertension, [...] discussion and plan. documented in this encounter [facility] Work Phone: 09-14-2023 Instructions Kate Cruz LPN [...] instructions on exercise. documented in this encounter [facility] Work Phone: 08-06-2023 Evaluation note Encounter Date [...] 6 months with imaging at that time. [employer] Other 01-11-2024 History of Present illness Narrative* [...] aortic aneurysm (AAA) without rupture, unspecified part ([facility]) - [facility] - [place], [place] - CT angiogram abdomen and pelvis; Future - Creatinine includes GFR, serum; Future Obstructive chronic bronchitis with exacerbation ([facility]) - CT angiogram abdomen and pelvis; Future - Creatinine includes GFR, serum; Future Obesity with body mass index (BMI) of 30.0 to 39.9 - CT angiogram abdomen and pelvis; Future - Creatinine includes GFR, serum; Future Chronic obstructive pulmonary disease, unspecified COPD type ([facility]) - CT angiogram abdomen and pelvis; Future - Creatinine includes GFR, serum; Future Patient with infrarenal abdominal aortic aneurysm. His most recent duplex ultrasound shows 5.2 cm and that was in June of 2023. At this point I will see him back in 6 months with a follow-up CT angiogram. [facility]* Encounter Date Diagnosis Assessment Notes Treatment Notes Treatment Clinical Notes Jun, Abdominal aortic aneurysm (AAA) without rupture, unspecified part (ICD-10 - I71.40) [employer] Other 11-30-2023 Evaluation note* Encounter Date Diagnosis Assessment Notes Treatment Notes Treatment Clinical Notes May, Abdominal aortic aneurysm (AAA) without rupture, unspecified part (ICD-10 - I71.40) Pt requests order as he is overdue for recheckUS. May, Bronchitis (ICD-10 - J40) Finish meds and treatment plan ordered by ER recently. Pt understands as he is improving. [employer] Other 08-25-2023 Evaluation note* Encounter Date Diagnosis Assessment Notes Treatment Notes Treatment Clinical Notes Feb, Acute cystitis without hematuria (ICD-10 - N30.00) [employer] Other 08-22-2023 Evaluation note* Encounter Date Diagnosis Assessment Notes Treatment Notes Treatment Clinical Notes Feb, Penile discharge (ICD-10 - R36.9) Pt request STI testing Feb, Dysuria (ICD-10 - R30.0) Rule out UTI based on symptoms. Will call w results. Push fluids. Feb, Chronic obstructive pulmonary disease, unspecified (ICD-10 - J44.9) Clinical diagnosis secondary to [id number] history of tobacco abuse. He will need PFTs in the future. Discussed missed appts w Dr. Campos and sleep lab. He states he will not followup there as he doesn't want to do a lung biopsy. His resp symptoms are improved overall. He expresses understanding on the severity of his condition and he chooses not to followup. [employer] Other 07-13-2023 Evaluation note* Encounter Date Diagnosis Assessment Notes Treatment Notes Treatment Clinical Notes Jan, COPD, moderate (ICD-10 - J44.9) Reminded him to keep appt w Dr. Campos on 02/10. Continue home medications. Avoid going outside with there is haze. Jan, Other sleep disorders (ICD-10 - G47.8) Gave number for the [facility]. He missed his last appt as his daughter had COVID. He will call to reschedule. [employer] Other 07-07-2023 Evaluation note* Encounter Date Diagnosis Assessment Notes Treatment Notes Treatment Clinical Notes Jan, Situational anxiety (ICD-10 - F41.8) [facility] Other 05-11-2023 Evaluation note* Encounter Date Diagnosis Assessment Notes Treatment Notes Treatment Clinical Notes November, Situational anxiety (ICD-10 - F41.8) [facility] Other 05-05-2023 Evaluation note* Encounter Date Diagnosis [...] any surgical interventions. Tobacco cessation program at [facility] has been recommended and offered as well as the national Quitline 9-334-PDPD-NOW. We have discussed pharmacologic treatment including nicotine replacement therapy which can lead to a positive nicotine test as well as nicotine free medications both of which will need to be managed by their PCP. We have provided handout for the [facility] Tobacco Cessation Program. This discussion was limited to 5 minutes. [employer] Other 04-20-2023 Evaluation note* Encounter Date Diagnosis Assessment Notes Treatment Notes Treatment Clinical Notes Oct, Chronic obstructive pulmonary disease, unspecified COPD type (ICD-10 - J44.9) Will resume inhalers as prescribed. Keep appt w Dr. Campos. Notes frequent dyspnea, agrees to a prednisone course. Oct, INOCENTE (obstructive sleep apnea) (ICD-10 - G47.33) I called [facility]. He has to meet with the sleep specialist before the test is done, even though it was already ordered. I gave him the date of the appt. I also ordered the test. Oct, Coronary artery disease involving [place] heart without angina pectoris, unspecified vessel or lesion type (ICD-10 - I25.10) Continued followup w [facility]. Continue time off work until breathing status is improved. [employer] Other 03-28-2023 Evaluation note* Encounter Date Diagnosis Assessment Notes Treatment Notes Treatment Clinical Notes Sep, Chronic obstructive pulmonary disease, unspecified COPD type (ICD-10 - J44.9) Trelegy samples and training please Sep, Atelectasis of right lung (ICD-10 - J98.11) Please obtain any previous chest CT done at [place] in the past, and have them load onto our PACS Sep, Tobacco use disorder (ICD-10 - F17.200) Sep, Coronary artery disease involving [place] heart without angina pectoris, unspecified vessel or lesion type (ICD-10 - I25.10) [facility] Other 03-23-2023 Evaluation note* Encounter Date Diagnosis Assessment Notes Treatment Notes Treatment Clinical Notes Sep, Coronary artery disease involving [place] coronary artery of [place] heart without angina pectoris (ICD-10 - I25.10) [...] needs a titration study at the least. [facility] Other 03-21-2023 Hospital Discharge instructions Additional Instructions [...] or pharmacist, without first calling the securities and real estate director who implanted the stent. If you require [...] lifting, stair steppers, etc. until the securities and real estate director approves these activities. Check with the securities and real estate director on your first follow-up visit. CALL YOUR PHYSICIAN at [phone]: -If bleeding should occur from the catheter insertion site- apply pressure to the site then immediately call us. -Report any fever, redness, drainage, increased swelling, or firmness at the catheter insertion site. Some bruising or slight swelling may be present at the time of discharge. -Should arm or leg become cold, numb, white, or blue, contact the securities and real estate director immediately. -IF you should experience episodes of [...] is recommended. Please call Central Scheduling at [phone] to schedule your appointment.] The attending securities and real estate director or [facility] nurse clinician should provide you with specific instructions regarding activity, diet, medications, and further follow up for you. Follow the medication instructions provided on your discharge. If the dosages and instructions on this sheet differ from the dosage and instructions on the bottle, follow the instructions on the bottle. [facility] is not responsible for incorrect prescription information provided by the patient during their visit. Do not stop your medications without consulting your health care provider. Please take the list with you to your next doctor's appointment.[facility] Work Phone: 1(329) 841-320603-21-2023 Progress note Author Rubén Tatum [facility] October 13, 2022 9:02am Note Date/Time October 13, 2022 9:0 2am [facility] [address] [place] [address] Cardiology Progress Note Signed Patient: Hector Gaspar SR MR#: [id number] : 1960 Acct:[id number] Age/Sex: 62 / M Adm Date: 3 Loc: Room: [address] [place] [address] Type: ADM IN Attending Dr: Barbara Rivero [...] on postNSTEMI/PCI metoprolol tartrate. 5. Follow-up in [facility] heart clinic within 10 days. From [...] signed by Rubén Tatum MD> 10/13/22 0902 [facility] Work Phone: 1(873) 233-332803-20-2023 Progress note Author Barbara Rivero [facility] October 12, 2022 2:24pm Note Date/Time October 12, 2022 2:1 2pm [facility] [address] [place] [address] Hospitalist Progress Note Signed Patient: Hector Gaspar SR MR#: [id number] : 1960 Acct:[id number] Age/Sex: 62 / M Adm Date: 3 Loc: Room: [address] [place] [address] Type: ADM IN Attending Dr: Barbara Rivero [...] this time. (3) Ventricular tachycardia seen on chief mechanical engineer: Plan: No further episodes of ventricular tachycardia. [...] <Electronically signed by Barbara Rivero MD> 10/12/22 1426 [facility] Work Phone: 1(565) 821-889003-20-2023 Progress note Author Rubén Tatum [facility] October 12, 2022 10:00am Note Date/Time October 12, 2022 9:5 9am [facility] [address] [place] [address] Cardiology Progress Note Signed Patient: Hector Gaspar MR#: [id number] : 1960 Acct:[id number] Age/Sex: 62 / M Adm Date: 3 Loc: 4 Room: [address] [place] [address] Type: ADM IN Attending Dr: Barbara Rivero [...] pacing device. (3) Ventricular tachycardia seen on chief mechanical engineer: Assessment/Problem Details: Stable no further wide-complex tachycardia [...] 1000 [facility] Work Phone: 1(306) 604-469103-19-2023 Progress note Author Barbara Rivero [facility] October 11, 2022 11:24am Note Date/Time October 11, 2022 11: 15am [facility] [address] [place] [address] Hospitalist Progress Note Signed Patient: Hector Gaspar SR MR#: [id number] : 1960 Acct:[id number] Age/Sex: 62 / M Adm Date: 3 Loc: Room: [address] [place] [address] Type: ADM IN Attending Dr: Barbara Rivero [...] smoking cessation. (3) Ventricular tachycardia seen on chief mechanical engineer: Plan: Patient given potassium and magnesium supplement. [...] signed by Barbara Rivero MD> 10/11/22 1124 [facility] Work Phone: 1(575) 855-816503-19-2023 Progress note Author Rubén Tatum [facility] October 11, 2022 9:41am Note Date/Time October 11, 2022 9:3 3am [facility] [address] [place] [address] Cardiology Progress Note Signed Patient: Hector Gaspar MR#: [id number] : 1960 Acct:[id number] Age/Sex: 62 / M Adm Date: 3 Loc: Room: [address] [place] [address] Type: ADM IN Attending Dr: Barbara Rivero [...] % (Auto) 63.8 Lymph % (Auto) 21.8 [place] % (Auto) 10.2 Eos % (Auto) 3.7 Baso % (Auto) 0.5 Nucleat RBC Rel Count 0.1 Neut # (Auto) 4.2 Lymph # (Auto) 1.4 [place] # (Auto) 0.7 Eos # (Auto) 0.2 [...] MPV Neut % (Auto) Lymph % (Auto) [place] % (Auto) Eos % (Auto) Baso % (Auto) Nucleat RBC Rel Count Neut # (Auto) Lymph # (Auto) [place] # (Auto) Eos # (Auto) Baso # [...] AV node (3) Ventricular tachycardia seen on chief mechanical engineer: Assessment/Problem Details: Not entirely certain that this [...] signed by Rubén Tatum MD> 10/11/22 0941 [facility] Work Phone: 1(683) 521-380203-18-2023 Progress note Author Barbara Rivero [facility] October 10, 2022 1:33pm Note Date/Time October 10, 2022 1:3 3pm [facility] [address] [place] [address] Event Note Signed Patient: Hector Gaspar SR MR#: [id number] : 1960 Acct:[id number] Age/Sex: 62 / M Adm Date: 3 Loc: Room: [address] [place] [address] Type: ADM IN Attending Dr: Barbara Rivero [...] <Electronically signed by Barbara Rivero MD> 10/10/221332 [facility] Work Phone: 1(344) 648-783103-18-2023 History of Present illness Narrative* Patient presents to the office ambulatory with steady gait. * This is initial in clinic follow-up at [facility]. * October 10, 2022 transferred to [facility] from [facility] d/t NSTEMI. Managed by with uneventful [...] medication regimen. He denies medication side effects. [facility] [address] DO Work Phone: 1(122) 196-156303-18-2023 Procedure [facility]03-18-2023 Procedure [facility]03-18-2023 Consult note Author Rubén Tatum [facility] October 10, 2022 9:54am Note Date/Time October 10, 2022 9:5 1am [facility] [address] [place] [address] Cardiology Consult Note Signed Patient: Hector Gaspar SR MR#: [id number] : 1960 Acct:[id number] Age/Sex: 62 / M Adm Date: 3 Loc: 3T Room: [address] [place] [address] Type: ADM IN Attending Dr: Barbara Rivero MD Copies to: MD Barbara Barry MD Stephen M Tann, MD~ Cardiology HPI History of Present Illness Consult Date: 10/10/22 Reason for Consult: Nausea, non-STEMI HPI: Mr. Gaspar is a 62 year old male with multiple cardiac risk factors but no known prior coronary heart disease who presented to [place] emergency department lastnight complaining of nausea x2 [...] consistent nausea ever since. He presented to [place] emergency department last evening with these complaints. In the ER at [place] ECG showed Q waves in the inferolateral [...] trend upward to 6000 and then greater [id number]. Echocardiogram at bedside this morning shows normal [...] negative unless noted below or [facility]?: No Medical History Asthma [...] Lymph # (Auto) 1.4 1.4 (1.00-4.8) x10E3/uL [place] # (Auto) 0.6 0.6 (0.0-0.8) x10E3/uL Eos [...] Dysrhythmias Sinus rhythms and dysrhythmias: sinus rhythm PA, pacemaker, normal Myocardial infarction: inferior PA (old age indeterminate) and lateral PA (acuteor recent) A&P - Cardiology (1) NSTEMI [...] signed by Rubén Tatum MD> 10/10/22 0954 [facility] Work Phone: 1(203) 470-823503-18-2023 History and physical note Author Galo Dent [facility] October 10, 2022 7:28am Note Date/Time October 10, 2022 7:2 8am [facility] [address] [place] [address] Hospitalist H&P Signed Patient: Hector Gaspar SR MR#: [id number] : 1960 Acct:[id number] Age/Sex: 62 / M Adm Date: 3 Loc: Room: [address] [place] [address] Type: ADM IN Attending Dr: Barbara Rivero MD Copies to: MD Barbara Barry MD Mushtaq Mahmood, MD~ HPI DATE OF EXAMINATION: 10/10/22 CHIEF COMPLAINT: Non-ST elevation PA HISTORY OF PRESENT ILLNESS: Patient is a 62-year-old gentleman with history of hypertension, heavy smoking about 1-1/2 pack for 45 years, COPD, strong family history of coronary artery disease, came to us from [place] emergency department last night. Patient presented to [...] ER physician did talk to the securities and real estate director here in [facility]. Patient was started on heparin drip, nitro patch was applied. He was sent to our hospital. Upon arrival in the [facility] patient complained about headache. Nitropatch was [...] % (Auto) 27.5 % (.) 10/10/22 06:10 [place] % (Auto) 11.4 % (.) 10/10/22 06:10 Eos % (Auto) 4.4 % (.) 10/10/22 06:10 Baso % (Auto) 0.6 % (.) 10/10/22 06:10 Nucleat RBC Rel Count 0.1 /100 WBC (0-0.5) 10/10/22 06:10 Neut # (Auto) 2.9 x10E3/uL (1.8-7.7) 10/10/22 06:10 Lymph # (Auto) 1.4 x10E3/uL (1.00-4.8) 10/10/22 06:10 [place] # (Auto) 0.6 x10E3/uL (0.0-0.8) 10/10/22 06:10 [...] heartcath by cardiology today. I have consulted [facility]. He was offered nicotine patch. I have [...] signed by Galo Dent MD> 10/10/22 0728 [facility] Work Phone: 1(158) [phone] Evaluation note* Encounter Date Diagnosis Assessment Notes [...] in office today. Prior medical notes from [place] ED and history have been reviewed. At [...] any surgical interventions. Tobacco cessation program at [facility] has been recommended and offered as well as the national Quitline 6-695-NUMX-NOW. We have discussed pharmacologic treatment including nicotine replacement therapy which can lead to a positive nicotine test as well as nicotine free medications both of which will need to be managed by their PCP. We have provided handout for the [facility] Tobacco Cessation Program. This discussion was limited to 5 minutes. Aug, Other See orders for this visit as documented in the electronic medical record. [facility] Other 01-19-2023 Evaluation note* Encounter Date Diagnosis Assessment Notes Treatment Notes Treatment Clinical Notes Jul, Chronic obstructive pulmonary disease with acute exacerbation (ICD-10 - J44.1) Discussed diagnosis with patient. Medication profile and possible SE reviewed with patient. Take as directed. Keep appt w Dr. Castillo on 08/31. Notify office if not improving or worsening. Patient verbalizes understanding and agrees to treatment plan. [facility] Other 01-05-2023 Evaluation note* Encounter Date Diagnosis Assessment Notes Treatment Notes Treatment Clinical Notes Jul, Chronic obstructive pulmonary disease with acute exacerbation (ICD-10 - J44.1) [facility] Other Discharge summary Author Barbara Rivero [facility] October 13, 2022 2:14pm Note Date/Time October 13, 2022 2:0 9pm [facility] [address] [place] [address] Discharge Summary Signed Patient: Hector Gaspar SR MR#: [id number] : 1960 Acct:[id number] Age/Sex: 62 / M Adm Date: 3 Loc: Room: [address] [place] [address]: Barbara Rivero MD Copies to: [...] transferred from outside facility for non-ST elevated PA. He was started on heparin drip as [...] tachycardia and episodes of complete heart block. Beta-amryjane was discontinued and he was kept another [...] or pharmacist, without first calling the securities and real estate director who implanted the stent. If you require [...] lifting, stair steppers, etc. until the securities and real estate director approves these activities. Check with the securities and real estate director on your first follow-up visit. CALL YOUR PHYSICIAN at [phone]: -If bleeding should occur from the catheter insertion site- apply pressure to the site then immediately call us. -Report any fever, redness, drainage, increased swelling, or firmness at the catheter insertion site. Some bruising or slight swelling may be present at thetime of discharge. -Should arm or leg become cold, numb, white, or blue, contact the securities and real estate director immediately. -IF you should experience episodes of [...] is recommended. Please call Central Scheduling at [phone] to schedule your appointment.] The attending securities and real estate director or [facility] nurse clinician should provide you with specific instructions regarding activity, diet, medications, and further follow up for you. Follow the medication instructions provided on your discharge. If the dosages and instructions on this sheet differ from the dosage and instructions on the bottle, follow the instructions on the bottle. [facility] is not responsible for incorrect prescription [...] BY MOUTH EVERY DAY Other Ambulatory Orders: EXECUTIVE RELATIONS SPECIALIST polysom procedure (Routine) Timeframe: 1 Week Location: Determined by Patient Ordered By: Barbara Rivero Follow Up: [facility] [Outside] (Left message with [facility] regarding need for outpatient sleep [...] [facility] Work Phone: Evaluation noteNo InformationNort [employer] Other Evaluation note* Diagnosis Onset Date Resolution Status COPD (chronic obstructive pulmonary disease) acute Heart block AV complete acut e Hypertension acute Hypoxemia acute NSTEMI (non-ST elevated myocardial infarction) acute Sleep apnea in adult acute Tobacco abuse acute Ventricular tachycardia seen on chief mechanical engineer acute [facility] Work Phone: Evaluation note* Diagnosis Atherosclerosis of [place] coronary artery of [place] heart without angina pectoris Essential hypertension, benign Mixed hyperlipidemia Ischemic cardiomyopathy Other specified forms of chronic ischemic heart disease Past myocardial infarction Old myocardial infarction Moderate chronic obstructive pulmonary disease (CMS/HCC) Chronic airway obstruction, not elsewhere classified Obesity (BMI 35.0-39.9 without comorbidity) Current smoker documented in this encounter [facility] Work Phone: Evaluation note* Diagnosis Onset Date Resolution Status COPD (chronic obstructive pulmonary disease) acute Situational anxiety acute [facility] Work Phone: Evaluation note* Diagnosis Onset Date Resolution Status COPD (chronic obstructive pulmonary disease) acute Situational anxiety acute Hypertension acute Coronary artery disease invo lving [place] heart without angina pectoris acute Hypertension acute Situational anxiety acute [facility] Work Phone: evaluation note* Diagnosis Onset Date Resolution Status Hypertension acute Coronary artery disease invo lving [place] heart without angina pectoris acute Hypertension acute Situational anxiety acute Right knee pain acute Right leg pain acute [facility] Work Phone: Evaluation note* Diagnosis Onset Date Resolution Status Right knee pain acute Right leg pain acute [facility] Work Phone: evaluation note* Diagnosis Abdominal aortic aneurysm (AAA) without rupture, unspecified part ([facility] Primary Obstructive chronic bronchitis with exacerbation ([facility]) Obstructive chronic bronchitis with exacerbation Obesity with body mass index (BMI) of 30.0 to 39.9 Chronic obstructive pulmonary disease, unspecified COPD type (CMS-HCC) documented [facility]* Diagnosis Abdominal aortic aneurysm (AAA) without rupture, unspecified part ([facility] Primary Obstructive chronic bronchitis with exacerbation (CMS-HCC) Obstructive chronic bronchitis with exacerbation Obesity with body mass index (BMI) of 30.0 to 39.9 documented in this encounter [facility]* Diagnosis Abdominal aortic aneurysm (AAA) without rupture, unspecified part ([facility])- Primary Obstructive chronic bronchitis with exacerbation (CMS-HCC) Obstructive chronic bronchitis with exacerbation Obesity with body mass index (BMI) of 30.0 to 39.9 documented in this encounter [facility]* Diagnosis Infrarenal abdominal aortic aneurysm (AAA) without rupture ([facility])- Primary Bilateral carotid bruits Cigarette smoker Tobacco use disorder documented in this encounter [facility]* Diagnosis Infrarenal abdominal aortic aneurysm (AAA) without rupture (CMS-HCC)- Primary Bilateral carotid bruits Cigarette smoker Tobacco use disorder Infrarenal abdominal aortic aneurysm (AAA) without rupture ([facility])- Primary Cigarette smoker motivated to quit Bilateral carotid bruits documented in this encounter [facility]* Diagnosis Preop cardiovascular exam Pre-operative cardiovascular examination Atherosclerosis of [place] coronary artery of [place] heart without angina pectoris Ischemic cardiomyopathy Other specified forms of chronic ischemic heart disease Past myocardial infarction Old myocardial infarction Mixed hyperlipidemia Essential hypertension Unspecified essential hypertension Murmur, heart Undiagnosed cardiac murmurs Moderate chronic obstructive pulmonary disease (Multi) Chronic airway obstruction, not elsewhere classified Lung mass Swelling, mass, or lump in chest Obesity (BMI 35.0-39.9 without comorbidity) Current smoker documented in this encounter [facility] Work Phone: Evaluation note* Diagnosis Infrarenal abdominal [...] therapeutic drug monitoring documented in this encounter [facility] SystemHistory general Narrative - Reported* Type Description [...] History appendectomy 05/02/18 Hospitalization History SEE SURGICAL [facility] Other History general Narrative - Reported* Type [...] 3 Stents 09/2022 Hospitalization History SEE SURGICAL [facility] Other Hisklrs general Narrative - Reported* Type Description Date [...] Stents 09/2022 Hospitalization History SEE SURGICAL HX [facility] Other History general Narrative - Reported* Type [...] History SEE SURGICAL HX Hospitalization History pneumonia [facility] Other InstructionsNot on filedocumented in this encounter [facility] System[facility]ructionsNot on filedocumented in this encounter [facility] System[facility]ructionsNot on filedocumented in this encounter [facility] SystemInstructionsNot on filedocumented in this encounter [facility] WayConnected SystemReason for referral (narrative)* Consultation (Routine) - Authorized Specialty Diagnoses / Procedures Referred By Yang boothe Referred To Contact Cardiology Diagnoses Atherosclerosis of [place] coronary artery of [place] heart without angina pectoris Procedures Follow Up In Cardiology Alok Webber DO [address] [facility] 2, [address] [address] Alok Webber, [address] [facility], [address] [address] Referral ID Status Reason Start Date Expiration Date V isits Requested Visits Authorized [id number] Authorized 09/14/2023 09/13/2024 1 1 [facility] Work Phone: Reason for visit Narrative* Consultation (Routine) - Authorized Specialty Diagnoses / Procedures Referred By Contac t Referred To Contact Cardiology Diagnoses Atherosclerosis of [place] coronary artery of [place] heart without angina pectoris Procedures Follow Up In Cardiology Alok Webber, [address] [facility], [place] [id number] Phone: tel: fax: Alok Webber, [address] [facility], [address] [address] Phone: tel: fax: Referral ID Status Reason Start Date Expiration Date V isits Requested Visits Authorized [id number] Authorized 09/14/2023 09/13/2024 1 1 [facility] Work Phone: Chief Complaint and Reason for Visit Chief Complaint M25.561 Elevated Troponin Reason for Visit COPD (chronic obstru ctive pulmonary disease) Heart block AV complete Hypertension Hypoxemia NSTEMI (non-ST elevated myocardial infarction) Sleep apnea in adult Tobacco abuse Ventricular tachycardia seen on chief mechanical engineer Chief Complaint M25.561 Elevated Troponin I25.10 I10 E78.2 Reason for Visit COPD (chronic obstru ctive pulmonary disease) Heart block AV complete Hypertension Hypoxemia NSTEMI (non-ST elevated myocardial infarction) Sleep apnea in adult Tobacco abuse Ventricular tachycardia seen on chief mechanical engineer Chief Complaint M25.561 Elevated Troponin I25.10 I10 E78.2 j98.11 Reason for Visit COPD (chronic obstru ctive pulmonary disease) Heart block AV complete Hypertension Hypoxemia NSTEMI (non-ST elevated myocardial infarction) Sleep apnea in adult Tobacco abuse Ventricular tachycardia seen on chief mechanical engineer Chief Complaint Tbh Amb Documentation Breathing Issues Dizziness Reason for Visit COPD (chronic obstru ctive pulmonary disease) Situational anxiety Chief Complaint Amb Documentation Breathing Issues Dizziness 1 month follow up pain in right calf Reason for Visit COPD (chronic obstru ctive pulmonary disease) Situational anxiety Hypertension Coronary artery disease involving [place] heart without angina pectoris Hypertension Situational anxiety Chief Complaint Dizziness 1 month follow up pain in right calf right leg swollen and painful Reason for Visit Hypertension Coronary artery disease involving [place] heart without angina pectoris Hypertension Situational anxiety [...] December. 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 * Based on current guidelines and most recent literature, this is an appropriate indication to withdraw antiplatelet therapy and proceed with urgent endobronchial biopsy for diagnostic purposes, notably his [place] stents that were recently placed have have [...] Infrarenal abdominal aortic aneurysm (AAA) without rupture ([facility]) Bilateral carotid bruits Cigarette smoker Procedures Echo complete W/O contrast Rom Pierre MD [address], [address] [address] Phone: Referral ID Status Reason Start Date Expiration Date V isits Requested Visits Authorized [id number] Pending Review 03/09/2024 03/09/2025 1 1 Specialty Diagnoses / Procedures Referred By Contac t Referred To Contact Diagnoses Bilateral carotid bruits Procedures Vas carotid duplex bilateral Rom Pierre MD [address], [address] [address] Phone: Referral ID Status Reason Start Date Expiration Date V isits Requested Visits Authorized [id number] Pending Review 03/09/2024 03/09/2025 1 1 Specialty Diagnoses / Procedures Referred By Contac t Referred To Contact Radiology Diagnoses Infrarenal abdominal aortic aneurysm (AAA) without rupture ([facility]) Procedures CT angiogram abdomen and pelvis Rom Pierre MD [address], [address] [address] Phone: Referral ID Status Reason Start Date Expiration Date V isits Requested Visits Authorized [id number] Pending Review 03/09/2024 03/09/2025 1 1 Specialty Diagnoses / Procedures Referred By Contac t Referred To Contact Radiology Diagnoses Abdominal aortic aneurysm (AAA) without rupture, unspecified part (CMS-HCC) Obstructive chronic bronchitis with exacerbation (CMS-HCC) Obesity with body mass index (BMI) of 30.0 to 39.9 Chronic obstructive pulmonary disease, unspecified COPD type ([facility]) Procedures CT angiogram abdomen and pelvis Christopher Faith MD [address], [address] [address] Referral ID Status Reason Start Date Expiration Date V isits Requested Visits Authorized [id number] Pending Review 08/22/2023 08/21/2024 1 1 Reason *FU 07/28 5cm AAA - report scanned. Diagnosis 1 Abdominal aortic ane urysm (AAA) without rupture, unspecified part (I71.40) Referral Organization [facility] sunil Referring Provider First Name Brock Referring Provider Last Name Ly Referring Provider Specialty [facility] Referred Organization [facility] Referred Provider Christopher Faith Referred Address [address] [place], [place],[address] Referred Provider Specialty Vascular Mir michelle Referral Priority Routine General Notes Helen Mendez 09:16:43 AM >received today, attachments made, ntoes locked, referral faxed Clinical Notes p: [id number] f: [id number] Additional Source Comments Care Teams (unrecognized sec [...] End: December 13, 2023 Brenda Jolley APRN EXCELLENCE MANAGER-C Attending Provider Act carol Start: December 13, [...] Adi Campos MD Attending Provider Active Manager Immunology Relationship Specialty Start Date End Date Brock Modi MD PCP - General 10/10/22 Team Status: Inactive Member Role Status Dates Brock Modi MD Attending Provider Active St art: August 06, 2023 End: August 06, 2023 Manager Immunology Relationship Specialty Start Date End Date Brock Modi MD [address] [place] [address] PCP - General Family Medicine 09/03/21 Manager Immunology Relationship Specialty Start Date End Date Brock Modi MD [address] [place] [address] PCP - General Family Medicine 09/03/21 Manager Immunology Relationship Specialty Start Date End Date Brock Modi MD [address] [place] [address] PCP - General Family Medicine 09/03/21 Manager Immunology Relationship Specialty Start Date End Date Brock Modi MD [address] [place] [address] PCP - General Family Medicine 09/03/21 Manager Immunology Relationship Specialty Start Date End Date Seymour Harper MD [address] [place] [address], [place] [address] PCP - General Family Medicine 09/12/24 Manager Immunology Relationship Specialty Start [place] [address] [place] [address], [place] [address] PCP - General Family Medicine 09/20/24 Manager Immunology Relationship Specialty Start [place] [address] [place] [address], [place] [address] PCP - General Family Medicine 09/12/24 Manager Immunology Relationship Specialty Start Date End Date Seymour Harper MD [address] [place] [address] PCP - General Family Medicine 09/12/24 Team [...] content) Reason Comments AAA, CT abd/pelvis at [facility], carotids Prom edica Reason Comments Abdominal aortic aneurysm (AAA) without rupture, unspecifie 6 month follow up with testing CT angiog mic abd/pel and SYSTEMS ANALYSIS MANAGER Reason Comments Follow-up Yearly follow up. Te sting was in 08/2022. Specialty Diagnoses / Procedures Referred By Yang boothe Referred To Contact Vascular Surgery Diagnoses Abdominal aortic aneurysm (AAA) without rupture, unspecified part ([facility]) Christopher Faith MD [address] [address] Christopher Faith MD [address] [place] [address] Referral ID Status Reason Start Date Expiration Date Visits Requested Visits Authorized [id number] Pending Review Specialty Services Required 3 07/21/2024 1 1 Reason Comments Follow-up 6m US resultTBHsleep apnea discussionrefillAlprazolamRecheck Right Knee* Reason for Visit: * Holter Monitor: * HECTOR is here for the application of a 48 hour Holter monitor. * Ordering Physician: JANINE CUNHA * Diagnosis: CAD SINUS PAUSE * [facility] equipment agreement signed. HECTOR understands monitor is to be returned on: 11-03-22 * Monitor number [id number] applied. * Holter monitor returned and downloaded. [...] DATE CREATED AUTHOR AUTHOR'S ORGANIZ ATION 04/09/2023 [facility] DATE CREATED AUTHOR AUTHOR'S ORGANIZ ATION 09/22/2024 [facility] DATE CREATED AUTHOR AUTHOR'S ORGANIZ ATION 11/15/2024 DATE CREATED AUTHOR AUTHOR'S ORGANIZ ATION 11/30/2024 [facility] DATE CREATED AUTHOR AUTHOR'S ORGANIZ ATION 12/19/2024 [facility] DATE CREATED AUTHOR AUTHOR'S ORGANIZ ATION 12/21/2024 [facility] Ambulatory [facility] FOR RECORDS PERTAINING [...] BE BASED ON THE PRIMARY CLINICAL RECORDS. [facility] Tip or Skip. provides no warranty or guarantee of the accuracy or completeness of information in this document.
[2025-03-14 23:04] LABS: Hematocrit 42.1 % (42.0-54.0); Hemoglobin 14.5 g/dL (14.0-18.0); Immature Granulocytes Abs Auto 0.01 10^3/uL (0.00-0.03); Immature Granulocytes Pct Auto 0.2 % (0.0-0.5); Lymphocytes Absolute Auto 1.3 10^3/uL (1.2-3.8); Mean Corpuscular HGB Conc 34.4 g/dL (29.9-35.2); Mean Corpuscular Hemoglobin 30.1 pg (25.9-34.0); Mean Corpuscular Volume 87.5 fL (80.0-94.0); Platelet Count 216 10^3/uL (150-450); Red Blood Count 4.81 10^6/uL (4.70-6.10); White Blood Count 5.6 10^3/uL (4.0-11.0)
[2025-03-14 23:13] LABS: Anion Gap 12.8; Blood Urea Nitrogen 25.0 mg/dL (7.0-18.0); Calcium 9.2 mg/dL (8.5-10.1); Carbon Dioxide 28.3 mmol/L (21.0-32.0); Chloride 108 mmol/L (98-107); Estimated GFR (African America >60 (>=60 mL/min/1.73m^2); Estimated GFR (Non-African Ame 53 (>=60 mL/min/1.73m^2); Glucose 139 mg/dL (74-106); Potassium 4.1 mmol/L (3.5-5.1); Sodium 145 mmol/L (136-145)
== END 2025-03-15 00:08 | disposition home or self-care (01) ==
PROVIDERS: Emergency Provider Emergency Medicine; PCP Family Medicine
DX: R11.2 Nausea with vomiting, unspecified (principal); R19.7 Diarrhea, unspecified; F17.200 Nicotine dependence, unspecified, uncomplicated
CPT/HCPCS: 36415; 71045; 80048; 85025; 93005; 96361; 96374; 99285; J2405

== ENCOUNTER 2025-03-17 21:17 | Emergency (ER) | payer OTHER, SELFPAY ==
--- OUTSIDE RECORDS SUMMARY | 2024-11-23 11:45 | XMS_ITS ---
Author Organization [facility] in [place] Address [address] [place] [address] Care Team Providers Care Anodiser Name Role Phone Clifford Davison Primary Care Provider REASON FOR VISIT Lab results Encounters Encounter Location Date Provider Diagnosis [facility] [address] [place] [address] 11/23/2024 Clifford Davison Plan Of Treatment No Information Progress Notes * Dennis HIGHTOWER ADOB:1960 (64 yo M)Acc No.[id number]:11/23/2024 Patient: Loyda PERRIN Dennis Torres :1960 A ge:64 Y S ex:Male Address:[address], [place], [address] * true * Date: Generated for Robi shanna/Tajg/eTransmitting on: 0 03/17/2025 09:23 PM EDT
--- OUTSIDE RECORDS SUMMARY | 2024-11-24 09:43 | XMS_ITS ---
Author Organization [facility] in [place] Address [address] [place] [address] Care Team Providers Care Top Lift Nailer Name Role Phone TonystaceyClifford Primary Care Provider REASON FOR VISIT rf albuterol Medications Medication SIG (Take, Route, Frequency, Duration) Notes Start Date End Date Status Albuterol Sulfate (2.5 MG/3ML) 0.083% 3 mL as needed Inhalation every 6 hrs 11/24/2024 Active Encounters Encounter Location Date Provider Diagnosis [facility] [address] [place] [address] 11/24/2024 Clifford Davison Plan Of Treatment Medication Medication Name Sig Start Date Stop Date Notes Albuterol Sulfate (2.5 MG/3ML) 0.083% 3 mL as needed Inhalation every 6 hrs 11/24/2024 Progress Notes * Dennis HIGHTOWER ADOB:1960 (64 yo M)Acc No.[id number]:11/24/2024 Patient: Loyda PERRIN Dennis Torres :1960 A ge:64 Y S ex:Male Address:[address], [place], [address] * Refills Start Albuterol Sulfate Nebulization Solution, (2.5 MG/3ML) 0.083%, Inhalation, 25, 3 mL as needed, every 6 hrs, Refills=11 * true * Date: Generated for Printi ng/Faxing/eTransmitting on: 0 03/17/2025 09:23 PM EDT
--- OUTSIDE RECORDS SUMMARY | 2025-01-22 10:15 | XMS_ITS ---
Author Organization [facility] [place] Address [address] [place] [address] Care Team Providers Care Load Checker Name Role Phone Clifford Davison Primary Care Provider Allergies Allergen (clinical drug ingredient) Drug/Non Drug Allergy documented on EMR Reaction Allergy Type Onset Date Status Penicillin hives Drug Allergy Active REASON FOR VISIT ruptured cyst, has odor- was where the aneurysm surgery was done, went to [facility] ER on Wednesday, was notput on any meds, was told to follow-up here Medications Medication SIG (Take, Route, Frequency, Duration) Notes Start Date End Date Status Cefdinir 300 MG 2 capsule Orally onc e a day for 10 days 01/22/2025 Active Tylenol 325 MG 1 tablet as needed O rally every 6 hrs Active Valsartan 40 MG TAKE 1 TABLET BY RENZO TH EVERY DAY for 90 days Active Ondansetron 4 MG 1 tablet on the tong ue and allow to dissolve Orally qid 11/20/2024 Active Doxycycline Monohydrate 100 MG 1 capsule Orally bid for 10 days 01/22/2025 Active Clopidogrel Bisulfate 75 MG 1 tablet Ora lly Once a day Active Dulera 100-5 MCG/ACT 2 puffs Inhalation bid for 30 days 10/18/2024 Active Hyoscyamine Sulfate 0.125 MG 1 tablet on the tongue and allow to dissolve as needed Orally QID As needed 08/11/2024 Active Atorvastatin Calcium 80 MG 1 tablet Oral ly Once a day Active Aspirin Adult Low Dose 81 MG 1 tablet Orally Once a day for 90 days Active Albuterol Sulfate (2.5 MG/3ML) 0.083% 3 mL as needed Inhalation every 6 hrs 11/24/2024 Active Social History Tobacco Use: Social History Observation Description Date Details (start date - stop date) Current Smoker 07/25/1979 - NA Tobacco Control (Standard) Question Answer Notes Tobacco use: Current smoker When did you start smoking? 07/25/1979 How often do you smoke cigarettes? Every day How many cigarettes a day do you smoke? 11-20 Problems Problem Type SNOMED Code ICD Code Onset Dates Problem Status W/U Status Risk Notes Problem Sebaceous cyst ([id number]) Sebaceous cyst (L72.3) Active confirmed Vital Signs Weight 239.2 lbs 01/22/2025 Height 66 in 01/22/2025 Blood pressure systolic 112 mm Hg 01/23/20 25 Blood pressure diastolic 82 mm Hg 025 BMI 38.6 kg/m2 01/22/2025 Encounters Encounter Location Date Provider Diagnosis [facility] [address] [place] [address] 01/22/2025 Clifford Hostacey Sebaceous cyst L72.3 Assessments Encounter Date Diagnosis (ICD Code) Assessment Notes Treatment Notes Treatment Clinical Notes Section Notes 01/22/2025 Sebaceous cyst (ICD-10 - L72.3) needs treated for infected cyst Plan Of Treatment Medication Medication Name Sig Start Date Stop Date Notes Cefdinir 300 MG 2 capsule Orally onc e a day for 10 days 01/22/2025 Doxycycline Monohydrate 100 MG 1 capsule Orally bid for 10 days 01/22/2025 Treatment Notes Assessment Notes Sebaceous cyst needs treated for in fected cyst Progress Notes * Dennis HIGHTOWER ADOB:1960 (64 yo M)Acc No.[id number]:01/22/2025 Progress Note Patient: Dennis VARGAS Provider: Sarwat Davison ([facility])MD :1960 A ge:64 Y S ex:Male Date:01/22/2025 Address:[address] [place], [place] [id number] Check In:02:01 PM ESTCheck O ut:02:23 PM EST Subjective: * Chief Complaints: * R uptured cyst, has odor- was where the aneurysm surgery was donewent to [facility] ER on Wednesday, was not put on any meds, was told to follow-up here * HPI: G eneral: Cy near incisiton - had small area size of a dime then that ruptured - then darined. * Active Problem List I10 Hypertension Modified On:07/14/2024U Status:confirmed I25.10 CAD (coronary artery disease) Modified On:07/14/2024U Status:confirmed E78.00 Hypercholesterolemia Modified On:07/14/2024 Status:confirmed R89.9 Abnormal laboratory test Modified On:07/24/2024U Status:confirmed I71.40 Abdominal aortic ane urysm (AAA) 3.0 cm to 5.5 cm in diameter in male Modified On:09/18/2024 Status:confirmed J44.9 COPD (chronic obstru ctive pulmonary disease) Modified On:10/17/2024 Status:confirmed K52.9 Gastroenteritis Modified On:11/20/2024 Status:confirmed L72.3 Sebaceous cyst Modified On:01/22/2025 Status:confirmed * Medical History: * Surgical History: a ppendectomy AAA repair 11/14/24 * Hospitalization/Major Diagno stic Procedure: D enies Past Hospitalization * Family History: F ather: , breast cancer, diagnosed with Other malignant neoplasm of unspecified site, Unspecified heart disease. M other: , diagnosed with Diabetes mellitus without mention of complication, type II or unspecified type, not stated as uncontrolled. B rother(s): alive, diagnosed with Unspecified heart disease. S ister(s): alive, diagnosed with Unspecified heart disease. 6 brother(s) , 4 sister(s) - healthy. 3 son(s) , 2 daughter(s) - healthy. . * Social History: T obacco Use: T obacco Control (Standard) T obacco use: C urrent smoker W hen did you start smoking? 1 H ow often do you smoke cigarettes? E very day H ow many cigarettes a day do you smoke? 1 1-20 * Medications: T akingAlbuterol Sulfate (2.5 MG/3ML) 0.083% Nebulization Solution 3 mL as needed Inhalation every 6 hrs Aspirin Adult Low Dose(Aspirin) 81 MG Tablet Delayed Release 1 tablet Orally Once a day Atorvastatin Calcium 80 MG Tablet 1 tablet Orally Once a day Clopidogrel Bisulfate 75 MG Tablet 1 tablet Orally Once a day Dulera(Mometasone Furo-Formoterol Fum) 100-5 MCG/ACT Aerosol 2 puffs Inhalation bid Hyoscyamine Sulfate 0.125 MG Tablet Disintegrating 1 tablet on the tongue and allow to dissolve as needed Orally QID As neededOndansetron 4 MG Tablet Disintegrating 1 tablet on the tongue and allow to dissolve Orally qid Tylenol(Acetaminophen) 325 MG Tablet 1 tablet as needed Orally every 6 hrs Valsartan 40 MG Tablet TAKE 1 TABLET BY MOUTH EVERY DAY Taking Albuterol Sulfate (2.5 MG/3ML) 0.083% Nebulization Solution 3 mL as needed Inhalation every 6 hrs Taking Aspirin Adult Low Dose(Aspirin) 81 MG Tablet Delayed Release 1 tablet Orally Once a day Taking Atorvastatin Calcium 80 MG Tablet 1 tablet Orally Once a day Taking Clopidogrel Bisulfate 75 MG Tablet 1 tablet Orally Once a day Taking Dulera(Mometasone Furo-Formoterol Fum) 100-5 MCG/ACT Aerosol 2 puffs Inhalation bid Taking Hyoscyamine Sulfate 0.125 MG Tablet Disintegrating 1 tablet on the tongue and allow to dissolve as needed Orally QID As neededTaking Ondansetron 4 MG Tablet Disintegrating 1 tablet on the tongue and allow to dissolve Orally qid Taking Tylenol(Acetaminophen) 325 MG Tablet 1 tablet as needed Orally every 6 hrs Taking Valsartan 40 MG Tablet TAKE 1 TABLET BY MOUTH EVERY DAY DiscontinuedCiprofloxacin HCl 500 MG Tablet 1 tablet Orally every 12 hrs Pyridium(Phenazopyridine HCl) 200 MG Tablet 1 tablet after meals Orally Three times a day Medication List reviewed and reconciled with the patientDiscontinued Ciprofloxacin HCl 500 MG Tablet 1 tablet Orally every 12 hrs Discontinued Pyridium(Phenazopyridine HCl) 200 MG Tablet 1 tablet after meals Orally Three times a day Medication List reviewed and reconciled with the patient * Allergies: P enicillin: hivesno[Allergies Verified] Objective: * Vitals: W t:239.2lbs, Ht: 66 in, BP:112/82mm Hg, BMI:38.6Index, Ht-cm: 167.64 cm, Wt-k.5 kg. * Examination: A bdomen Exam:: L eft inguinal area - cyst - ruptured. Assessment: * Assessment: 1. S ebaceous cyst - L72.3 (Primary) Plan: * Treatment: * Procedure Codes: * Preventive Medicine: Screenings/Counseling: B TX ACTION PLAN Above Normal BMI Follow-up D ietary management education, guidance, and counseling T OBACCO ACTION PLAN Patient counselled on the dangers of tobacco use and urged to quit. 0 01/22/2025 . * * Sign off status: Completed Visit Status: C HK (Check Out) true * Provider: Sarwat Davison ([facility])MD Date: 0 01/22/2025 Generated for Robi shanna/Debbie/eTransmitting on: 0 03/17/2025 09:24 PM EDT History and Physical Notes * HPI (History of Present Illness) Category Sub-Category Detail Notes Category Not es General Cy near incisit on - had small area size of a dime then that ruptured - then darined Examination Category Sub-Category Detail Notes Category Not es Abdomen Exam: Left inguinal area - cyst - ruptured
[2025-03-17 21:20] VITALS: BP 161/88; PULSE 90; TEMP 36.9; BMI 37.6
--- OUTSIDE RECORDS SUMMARY | 2025-03-17 21:23 | XMS_ITS | Encounter Summary ---
Author Organization [facility] Address [address] [place] [address] Phone Care Team Providers Care Box Maker Wood Name Role Phone Cielo Devries MD Primary Care Provider [phone] Sukumar Davison MD Primary Care Provider [phone] Encounter Details Date Type Department Care Team (Late st Contact Info) Description 05/07/2024 Scanned Document [facility] [address] [place] [address] Scanning, Generic Provider Social History Tobacco Use Types Packs/Day Years Used Date Smoking Tobacco: Every Day Cigarettes Alcohol Use Standard Drinks/Week Comments Never 0 (1 standard drink = 0.6 oz pur e alcohol) Sex and Gender Information Value Date Recorded Sex Assigned at Not on file Legal Sex Male 9:41 AM EDT Gender Identity Not on file Sexual Orientation Not on file documented as of this encounter Plan of Treatment Upcoming Encounters Date Type Department Care Team (Late st Contact Info) Description 09/20/2025 11:30 AM EST Office Visit [facility] [facility] [address] [place] [phone] Alok Webber DO [address]03 [facility] 2, [address] [place] [address] documented as of this encounter Procedures Procedure Name Priority Date/Time Associated Diagnosis Comments OUTSIDE IMAGING SCAN 05/07/2024 documented in this encounter Results * OUTSIDE IMAGING SCAN (05/07/2024) Anatomical Region Laterality Modality Other Narrative 05/07/2024 Ordered by an unspecified provider. us Generic Provider Scanning OUTSIDE SCAN Final Result documented in this encounter Visit Diagnoses Not on filedocumented in this encounter Care Teams Box Maker Wood Relationship Specialty Start Date End Date Cielo Devries MD [address] [place] [address] PCP - General 10/10/22 09/19/24 Sukumar Davison MD [address] [place] [address] PCP - General Family Medicine 09/20/24 documented as of this encounter
--- OUTSIDE RECORDS SUMMARY | 2025-03-17 21:23 | XMS_ITS | Encounter Summary ---
Author Organization [facility] Address [address] [place] [address] Phone Care Team Providers Care Coconut Jelly Roller Name Role Phone Cielo Devries MD Primary Care Provider [phone] Sukumar Davison MD Primary Care Provider [phone] Encounter Details Date Type Department Care Team (Late st Contact Info) Description 03/30/2024 Scanned Document [facility] [address] [place] [address] Scanning, Generic Provider Social History [...] Description 09/20/2025 11:30 AM EST Office Visit [facility] [address] [facility] [address] [place] [phone] Alok Webber DO [address] [facility] 2, [address] [place] [address] documented as of this encounter Procedures Procedure Name Priority Date/Time Associated Diagnosis Comments ECHOCARDIOGRAM 03/30/2024 documented in this encounter Results * Echocardiogram (03/30/2024) Narrative 03/30/2024 Ordered by an unspecified provider. us Generic Provider Scanning CV ECHO PROCEDURES Fin al Result documented in this encounter Visit Diagnoses Not on filedocumented in this encounter Care Teams Coconut Jelly Roller Relationship Specialty Start Date End Date Cielo Devries MD [address] [place] [address] PCP - General 10/10/22 09/19/24 [place] [address] [place] [address] PCP - General Family Medicine 09/20/24 documented as of this encounter
--- OUTSIDE RECORDS SUMMARY | 2025-03-17 21:23 | XMS_ITS | Encounter Summary ---
Author Organization [facility] Address [address] [place] [address] Care Team Providers Care Construction And Maintenance Inspector Name Role Phone Unavailable Primary Care Provider Unavailabl e Encounter Details Date Type Department Care Team (Late st Contact Info) Description 03/31/2024 Clinisync Result Encounter [facility] External Department Unsolicited Rom Pierre MD [address], [place] [id number] Social History Tobacco Use Types Packs/Day Years Used Date Smoking Tobacco: Never Assessed Sex and Gender Information Value Date Recorded Sex Assigned at Not on file Legal Sex Male 11:34 PM EDT Gender Identity Not on file Sexual Orientation Not on file documented as of this encounter Plan of Treatment Not on file documented as of this encounter Procedures Procedure Name Priority Date/Time Associated Diagnosis Comments CA ECHO DOPPLER COMPLETE 03/31/2024 3:09 PM EDT documented in this encounter Results * CA ECHO DOPPLER COMPLETE (03/31/2024 3:09 PM EDT) Anatomical Region Laterality Modality Other 03/31/2024 3:09 PM EDT Narrative 03/31/2024 3:10 PM EDT [facility] [address] [place] [address] Cardiology Report Signed Patient: HECTOR HIGHTOWER MR#: [id number] : 1960 Acct:[id number] Age/Sex: 63 / M ADM Date: 03/30/24 Loc: CARD Attending Dr: Rom Pierre M.D. Ordering Physician: Rom Pierre M.D. Date of Service: 03/30/24 Procedure(s): CA echo doppler complete Accession Number(s): [id number] cc: Cielo Devries M.D.; Rom Pierre M.D. Patient Name: HECTOR HIGHTOWER MR#: [id number] : 1960 Exam Date: 03/30/2024 Ordering Doctor: ROM PIERRE M.D. ECHOCARDIOGRAM REPORT PROCEDURE: CA ECHO DOPPLER COMPLETE INDICATIONS: Bilateral carotid bruits, abdominal aortic aneurysm, smoker, ND, cardiac stents, hypertension COMPARISON: None. DESCRIPTION: COMPLETE ECHOCARDIOGRAM Real-time transthoracic echocardiography with 2D, M-mode, spectral and color flow Doppler performed. QUALITY: Technical quality was good. LEFT VENTRICLE: Normal chamber size. Mildly increased left ventricular wall thickness. Velocities across the left ventricular outflow are severely increased; peak velocity 6.96 m/s. Peak gradient 193 mmHg with Valsalva. This may be due to hyperdynamic left ventricular systolic function. LV EF: Global left ventricular systolic function is hyperdynamic; visually estimated ejection fraction is 70 to 75%. DIASTOLIC: Diastolic function is indeterminate. ATRIAL SEPTUM: Visually appears intact. LEFT ATRIUM: Normal chamber size. RIGHT ATRIUM: Normal chamber size. RIGHT VENTRICLE: Normal chamber size. Normal right ventricular systolic function. TRICUSPID VALVE: Normal mobility and thickness. No stenosis with trivial regurgitation. Doppler studies reveal moderately (45-60) elevated right sided pressures. RVSP 47 mmHg MITRAL VALVE: Normal mobility and thickness. No evidence of mitral valve stenosis. There is no mitral annular calcification. No mitral regurgitation. AORTIC VALVE: Normal trileaflet appearance. Normal leaflet mobility. Unable to assess aortic valve stenosis due to contamination of the sigmoid from the left ventricular outflow tract envelope; the leaflets appear to open and close appropriately. Multi focal calcifications. No aortic regurgitation. AORTIC ROOT: Aortic root and ascending aorta are dilated. PULMONIC VALVE: Normal thickness and mobility. No stenosis. No regurgitation. PERICARDIUM: Anterior free space; trivial effusion versus fat pad. IVC: IVC is normal in size, does not collapse. CONCLUSION: 1. Global left ventricular systolic function is hyperdynamic; visually estimated ejection fraction is 70 to 75% 2. The right ventricle is normal in size and systolic function 3. Mildly increased left ventricular wall thickness 4. Diastolic function is indeterminate 5. Moderately elevated right ventricular systolic pressure; RVSP 47 mmHg 6. Elevated velocities across the left ventricular outflow tract are likely related to hyperdynamic state; would repeat an echocardiogram once the patient's volume status and/or other causes for hyperdynamic left ventricular function have resolved Adult Echocardiography Procedure Report Left Ventricle LVEDD (3.7 - 5.6 cm): 4.33 cm LVESD (2.2 - 4.0 cm): 2.63 cm LVIVS thickness (0.6 - 1.2 cm): 1.22 cm LVPW thickness (0.5 - 1.0 cm): 1.15 cm e': 0.08 m/s E - e': 7.07 LVOT Max Gradient: 21.37 mm[Hg] LVOT Area (cm2): 2.31 m/s Peak Velocity (LVOT): 2.31 m/s Mean Velocity (LVOT): 1.51 m/s LVOT Diameter 2.64 cm Left Atrium LA Volume Index (2D A2C): 29.38 ml/m2 Left Atrium Systolic Dimension: 3.36 cm Mitral Valve MV E to A Ratio: 0.61, 0.55 Mitral Valve A-Wave Peak Velocity: 0.94 m/s Mitral Valve E-Wave Peak Velocity: 0.55 m/s Right Ventricle Aorta AO Root Diam: 4.45 cm Ascending Ao Diam: 3.52 cm Aortic Valve AoV Area (Peak Michael): 3.05 cm2, 3.16 cm2 AoV Area (VTI): 3.50 cm2, 3.46 cm2 Peak Velocity(Antegrade Flow): 4.00 m/s, 4.29 m/s Peak Gradient(Antegrade Flow): 64.14 mm[Hg], 73.62 mm[Hg] Mean Velocity(Antegrade Flow): 2.46 m/s, 2.17 m/s Mean Gradient(Antegrade Flow): 30.28 mm[Hg], 27.35 mm[Hg] Velocity Time Integral: 61.30 cm, 59.80 cm Tricuspid Valve Peak Velocity (Regurgitant Flow): 3.14 m/s Pulmonic Valve Mean Gradient: 2.31 mm[Hg] Mean Velocity: 0.69 m/s Peak Velocity: 1.06 m/s, 1.09 m/s Peak Gradient: 4.76 mm[Hg], 4.53 mm[Hg] Right Atrium Right Atrium Systolic Pressure: 47.46 ml, 47.46 ml Dictated by: Megan So M.D. on 03/31/2024 at 15:02 Approved by: Megan So M.D. on 03/31/2024 at 15:09 Dictated By: Megan So M.D. Signed By: 03/31/24 1510 DD/ 1509 TD/TT: Subway Train Operator: Procedure Note Radiology, Radiologist, MD - 03/31/2024 [place] [address] Cardiology Report Signed Patient: HECTOR HIGHTOWER [facility]#: [id number] : 1960Acct:[id number] Age/Sex: 63 / MADM Date: 03/30/24 Loc: CARD Attending Dr: Rom Pierre M.D. Ordering Physician: Rom Pierre M.D. Date of Service: 03/30/24 Procedure(s): CA echo doppler complete Accession Number(s): [id number] cc: Cielo Devries M.D.; Rom Pierre M.D. Patient Name: HECTOR HIGHTOWER MR#: [id number] : 1960 Exam Date: 03/30/2024 Ordering Doctor: ROM PIERRE M.D. ECHOCARDIOGRAM REPORT PROCEDURE: CA ECHO DOPPLER COMPLETE INDICATIONS: Bilateral carotid bruits, abdominal aortic aneurysm,smoker, ND, cardiac stents, hypertension COMPARISON: None. DESCRIPTION: COMPLETE ECHOCARDIOGRAM Real-time transthoracic echocardiography with 2D, M-mode, spectral and color flow Dopplerperformed. QUALITY: Technical quality was good. LEFT VENTRICLE: Normal chamber size. Mildly increased leftventricular wall thickness. Velocities across the left ventricular outflow areseverely increased; peak velocity 6.96 m/s. Peak gradient 193 mmHg with Valsalva. This may be due to hyperdynamic left ventricular systolic function. LV EF: Global left ventricular systolic function is hyperdynamic;visually estimated ejection fraction is 70 to 75%. DIASTOLIC: Diastolic function is indeterminate. ATRIAL SEPTUM: Visually appears intact. LEFT ATRIUM: Normal chamber size. RIGHT ATRIUM: Normal chamber size. RIGHT VENTRICLE: Normal chamber size. Normal right ventricularsystolic function. TRICUSPID VALVE: Normal mobility and thickness. No stenosis withtrivial regurgitation. Doppler studies reveal moderately (45-60) elevated rightsided pressures. RVSP 47 mmHg MITRAL VALVE: Normal mobility and thickness. No evidence of mitralvalve stenosis. There is no mitral annular calcification. No mitralregurgitation. AORTIC VALVE: Normal trileaflet appearance. Normal leaflet mobility. Unable to assess aortic valve stenosis due to contamination of the sigmoid from the left ventricular outflow tract envelope; the leaflets appear toopen and close appropriately. Multi focal calcifications. No aorticregurgitation. AORTIC ROOT: Aortic root and ascending aorta are dilated. PULMONIC VALVE: Normal thickness and mobility. No stenosis. No regurgitation. PERICARDIUM: Anterior free space; trivial effusion versus fat pad. IVC: IVC is normal in size, does not collapse. CONCLUSION: 1. Global left ventricular systolic function is hyperdynamic; visually estimated ejection fraction is 70 to 75% 2. The right ventricle is normal in size and systolic function 3. Mildly increased left ventricular wall thickness 4. Diastolic function is indeterminate 5. Moderately elevated right ventricular systolic pressure; RVSP 47 mmHg 6. Elevated velocities across the left ventricular outflow tract arelikely related to hyperdynamic state; would repeat an echocardiogram once the patient's volume status and/or other causes for hyperdynamic leftventricular function have resolved Adult Echocardiography Procedure Report Left Ventricle LVEDD (3.7 - 5.6 cm): 4.33 cm LVESD (2.2 - 4.0 cm): 2.63 cm LVIVS thickness (0.6 - 1.2 cm): 1.22 cm LVPW thickness (0.5 - 1.0 cm): 1.15 cm e': 0.08 m/s E - e': 7.07 LVOT Max Gradient: 21.37 mm[Hg] LVOT Area (cm2): 2.31 m/s Peak Velocity (LVOT): 2.31 m/s Mean Velocity (LVOT): 1.51 m/s LVOT Diameter 2.64 cm Left Atrium LA Volume Index (2D A2C): 29.38 ml/m2 Left Atrium Systolic Dimension: 3.36 cm Mitral Valve MV E to A Ratio: 0.61, 0.55 Mitral Valve A-Wave Peak Velocity: 0.94 m/s Mitral Valve E-Wave Peak Velocity: 0.55 m/s Right Ventricle Aorta AO Root Diam: 4.45 cm Ascending Ao Diam: 3.52 cm Aortic Valve AoV Area (Peak Michael): 3.05 cm2, 3.16 cm2 AoV Area (VTI): 3.50 cm2, 3.46 cm2 Peak Velocity(Antegrade Flow): 4.00 m/s, 4.29 m/s Peak Gradient(Antegrade Flow): 64.14 mm[Hg], 73.62 mm[Hg] Mean Velocity(Antegrade Flow): 2.46 m/s, 2.17 m/s Mean Gradient(Antegrade Flow): 30.28 mm[Hg], 27.35 mm[Hg] Velocity Time Integral: 61.30 cm, 59.80 cm Tricuspid Valve Peak Velocity (Regurgitant Flow): 3.14 m/s Pulmonic Valve Mean Gradient: 2.31 mm[Hg] Mean Velocity: 0.69 m/s Peak Velocity: 1.06 m/s, 1.09 m/s Peak Gradient: 4.76 mm[Hg], 4.53 mm[Hg] Right Atrium Right Atrium Systolic Pressure: 47.46 ml, 47.46 ml Dictated by: Megan So M.D. on 03/31/2024 at 15:02 Approved by: Megan So M.D. on 03/31/2024 at 15:09 Dictated By: Megan So M.D. Signed By:03/31/24 1510 DD/ 1509 TD/TT: Subway Train Operator: us Rom Pierre MD [facility] Final Resu lt documented in this encounter Visit Diagnoses Not on filedocumented in this encounter
--- OUTSIDE RECORDS SUMMARY | 2025-03-17 21:23 | XMS_ITS | Clinical Summary ---
Author Organization [facility] Address [address] [place] [address] Phone Care Team Providers Care Casino Supervisor Name Role Phone Sukumar Davison MD Primary Care Provider [phone] Allergies Active Allergy Reactions Criticality Noted Date Comments Penicillins Hives 08/06/2023 Pneumococcal Vaccine Other 09/14/2023 cellulitis Medications aspirin 81 mg EC tablet Take 1 tablet (81 mg) by mouth once daily. Active nitroglycerin (Nitrostat) 0.[address] 1 tablet (0.4 mg) under the tongue every 5 minutes if needed for chest pain. Active valsartan (Diovan) 40 mg tablet Take 1 tablet (40 mg) by mouth once daily. Active metoprolol tartrate (Lopressor) 25 mg tabletIndications:P ast myocardial infarction,[place] hypertension Take 1 tablet (25 mg) by mouth 2 times a day. 180 tablet 3 5 09/20/19 Active clopidogrel (Plavix) 75 mg tabletIndications:A therosclerosis of [place] coronary artery of [place] heart without angina pectoris Take 1 tablet (75 mg) by mouth once daily. 90 tablet 3 5 Active atorvastatin (Lipitor) 80 mg tabletIndications:M ixed hyperlipidemia Take 1 tablet (80 mg) by mouth once daily at bedtime. 90 tablet 3 5 Active Active Problems Problem Noted Date Diagnosed Date Lung mass 09/20/2024 Preop cardiovascular exam 09/20/2024 Obesity (BMI 35.0-39.9 without comorbidity) 08/27 Current smoker 09/14/2023 Moderate chronic obstructive pulmonary disease ( Multi) 08/06/2023 Coronary atherosclerosis of [place] coronary bebo ry 08/06/2023 Essential hypertension 08/06/2023 Mixed hyperlipidemia 08/06/2023 Ischemic cardiomyopathy 08/06/2023 Past myocardial infarction 08/06/2023 Sinus pause 08/06/2023 Resolved Problems Problem Noted Date Diagnosed Date Resolved Date Sinus tachycardia 08/06/2023 09/14/2023 Family History Medical History Relation Name Comments Heart attack Brother Diabetes type I Father Heart attack Sister Relation Name Status Comments Brother Father Sister Social History Tobacco Use Types Packs/Day Years Used Date Smoking Tobacco: Every Day Cigarettes Smokeless Tobacco: Never Tobacco Cessation:Ready to Q uit: No; Counseling Given: Yes Alcohol Use Standard Drinks/Week Comments Never 0 (1 standard drink = 0.6 oz pur e alcohol) Sex and Gender Information Value Date Recorded Sex Assigned at Not on file Legal Sex Male 9:41 AM EDT Gender Identity Not on file Sexual Orientation Not on file Last Filed Vital Signs Vital Sign Reading Time Taken Comments Blood Pressure 124/78 09/20/2024 9:17 AM EST Pulse 115 09/20/2024 9:17 AM EST Temperature - - Respiratory Rate - - Oxygen Saturation - - Inhaled Oxygen Concentration - - Weight 110 kg (243 lb) 09/20/2024 9:17 AM EST Height 167.6 cm (5' 6 ) 09/20/2024 9:17 AM EST Body Mass Index 39.22 09/20/2024 9:17 AM EST Plan of Treatment Upcoming Encounters Date Type Department Care Team (Late st Contact Info) Description 09/20/2025 11:30 AM EST Office Visit [facility] [address] [facility] [address] [place] [address] Alok Webber, DO [address] [facility] [address] [place] [address] Health Maintenance Due Date Last Done Comments CT Colonography 1960 Colonoscopy 1960 Colorectal Cancer Screening 1960 FIT-DNA (Cologuard) 1960 FIT 1960 HIV Screening 1960 Lipid Panel 1960 Sigmoidoscopy 1960 Yearly Adult Physical 1960 MMR Vaccines (1 of 1 - Standard series) 1961 Diabetes Screening 1978 Hepatitis C Screening 1978 DTaP/Tdap/Td Vaccines (1 - Tdap) 1982 PSA Prostate Cancer Screening 2010 Zoster Vaccines (1 of 2) 2010 RSV High Risk: (Elderly (60+ ) or Population) (1 - Risk 60-74 years 1-dose series) 2020 Pneumococcal Vaccine (3 of 3 - PCV20 or PCV21) 05/02/2023 05/02/2018, 05/26/2017 COVID-19 Vaccine (1 - 2023-2 5 season) 2024 Influenza Vaccine (#1) 2025 Abdominal Aortic Aneurysm (AAA) Screening 2025 HIB Vaccines Aged Out No longer eligi ble based on patient's age to complete this topic HPV Vaccines Aged Out No longer eligi ble based on patient's age to complete this topic Hepatitis A Vaccines Aged Out No long er eligible based on patient's age to complete this topic Hepatitis B Vaccines Aged Out No long er eligible based on patient's age to complete this topic IPV Vaccines Aged Out No longer eligi ble based on patient's age to complete this topic Meningococcal Vaccine Aged Out No weston pilo eligible based on patient's age to complete this topic Rotavirus Vaccines Aged Out No longer eligible based on patient's age to complete this topic Insurance [employer] Care Teams Casino Supervisor Relationship Specialty Start Date End Date Sukumar Davison MD [address] [place] [address] PCP - General Family Medicine 09/20/24
--- OUTSIDE RECORDS SUMMARY | 2025-03-17 21:23 | XMS_ITS | Encounter Summary ---
Author Organization [facility] Address [address] [place] [address] Phone Care Team Providers Care Hand Developer Name Role Phone Cielo Devries MD Primary Care Provider [phone] Sukumar Davison MD Primary Care Provider [phone] Encounter Details Date Type Department Care Team (Late st Contact Info) Description 03/14/2024 Scanned Document [facility] [address] [place] [address] Scanning, Generic Provider Social History [...] Description 09/20/2025 11:30 AM EST Office Visit [facility] [address] [facility] [address] [place] [id number] Alok Webber DO [address] [facility] [address] [place] [address] Scheduled Orders Name Type Priority Associated Diagnoses Orde r Schedule Ultrasound- OnBase Scan Imaging O rdered: 03/14/2024 documented as of this encounter Visit Diagnoses Not on filedocumented in this encounter Care Teams Hand Developer Relationship Specialty Start Date End Date Cielo Devries MD [address] [place] [address] [address] [place] [address] PCP - General 10/10/22 09/19/24 Sukumar Davison MD [address] [facility] [place] [address] PCP - General Family Medicine 09/20/24 documented as of this encounter
--- OUTSIDE RECORDS SUMMARY | 2025-03-17 21:23 | XMS_ITS | Clinical Summary ---
Author Organization [facility] Address [address] [place] [address] Care Team Providers Care Almond Grinder Name Role Phone Unavailable Primary Care Provider Unavailabl e Social History Tobacco Use Types Packs/Day Years Used Date Smoking Tobacco: Never Assessed Sex and Gender Information Value Date Recorded Sex Assigned at Not on file Legal Sex Male 11:34 PM EDT Gender Identity Not on file Sexual Orientation Not on file Last Filed Vital Signs Vital Sign Reading Time Taken Comments Blood Pressure - - Pulse - - Temperature - - Respiratory Rate - - Oxygen Saturation - - Inhaled Oxygen Concentration - - Weight 90.7 kg (200 lb) 10/08/2021 12:00 PM EDT Height 167.6 cm (5' 6 ) 10/08/2021 12:00 PM EDT Body Mass Index 32.28 10/08/2021 12:00 PM EDT Plan of Treatment Not on file Insurance [employer]
--- OUTSIDE RECORDS SUMMARY | 2025-03-17 21:23 | XMS_ITS | Encounter Summary ---
Author Organization [employer] Address [id number] [address] [place] [address] Care Team Providers Care Managing Consultant Name Role Phone Sukumar Davison MD Primary Care Provider [phone] Encounter Details Date Type Department Care Team (Late st Contact Info) Description 11/01/2024 Telephone [facility] [address] [place] [phone] Rom Pierre MD [address], [facility] [address] [place], [place] [id number] Social History Tobacco Use Types Packs/Day Years Used Date Smoking Tobacco: Every Day Cigarettes 1.5 33.6 Started: 08/08/1991 Smokeless Tobacco: Never Comments:pack and a half a d ay pt reports he is really trying to quit 09/04/21 Alcohol Use Standard Drinks/Week Comments Never 0 (1 standard drink = 0.6 oz pur e alcohol) Hunger Screening Answer Date Recorded Within the past 12 months we worried whether our food would run out before we got money to buy more. Never True 10/31/2024 Within the past 12 months th e food we bought just didn't last and we didn't have money to get more. Never True 10/31/2024 Sex and Gender Information Value Date Recorded Sex Assigned at Not on file Legal Sex Male 11:15 AM EST Gender Identity Not on file Sexual Orientation Not on file documented as of this encounter Miscellaneous Notes * Telephone Encounter - Chrissy Herron - 11/01/2024 12:52 PM EDT Patient is calling because he has some questions regarding his surgery. He is looking for some clarification on what exactly the procedure will consist of. He is requesting to talk to the Doctor. I did offer to transfer him to the folder inspector to possible get some more information but he declined. He can be reached at [phone] Thank you. * Telephone Encounter - Claritza Marina CMA - 11/01/2024 12:52 PM EDT Adding folder inspector on this. Sera can you please help with this documented in this encounter Plan of Treatment Not on file documented as of this encounter Visit Diagnoses Not on filedocumented in this encounter Care Teams Managing Consultant Relationship Specialty Start Date End Date Sukumar Davison MD [address] [place] [address] PCP - General Family Medicine 09/12/24 documented as of this encounter
--- OUTSIDE RECORDS SUMMARY | 2025-03-17 21:24 | XMS_ITS | Encounter Summary ---
Author Organization [employer] Address [id number] [address] [place] [place] [address] Care Team Providers Care Paving And Surfacing Labourer Name Role Phone Sukumar Davison MD Primary Care Provider [phone] Encounter Details Date Type Department Care Team (Late st Contact Info) Description 04/04/2024 Orders Only [facility] [address] [place] [address] Claritza Marina, BILLIE Infrarenal abdominal aortic aneurysm (AAA) without rupture ([facility]); Bilateral carotid bruits; Cigarette smoker Social History Tobacco Use Types Packs/Day Years [...] got money to buy more. Never True 03/09/2024 Within the past 12 months th e food we bought just didn't last and we didn't have money to get more. Never True 03/09/2024 Sex and Gender Information Value Date Recorded Sex Assigned at Not on file Legal Sex Male 11:15 AM EST Gender Identity Not on file Sexual Orientation Not on file documented as of this encounter Plan of Treatment Not on file documented as of this encounter Procedures Procedure Name Priority Date/Time Associated Diagnosis Comments ECHO COMPLETE WO CONTRAST Routine 09/12/2024 1:38 PM EST Infrarenal abdominal aortic aneurysm (AAA) without rupture ([facility]) Bilateral carotid bruits Cigarette smoker documented in this encounter Results * Echo complete W/O contrast (09/12/2024 1:38 PM EST) LVOT stroke volume 108.41 ml XCELERA FS 30 28 - 44 % XCEL[facility]A LVIDd 3.96 cm XCELERA LVIDs 2.77 cm XCELERA IVS 1.17 0.6 - 1.1 cm XCELERA PW 1.15 0.6 - 1.1 cm XCELERA LVOT diameter 2.10 cm XCELERA TDI 6.67 cm/s XCELERA LA Volume Index 23.4 mL/m2 XCELERA E/A ratio 0.58 XCELERA E wave deceleration time 271.00 msec XCELERA MV Peak E Michael 44.60 cm/s XCELERA MV Peak A Michael 77.10 cm/s XCELERA LA size 3.90 cm XCELERA Aortic root 4.30 cm XCELERA LA volume 53.90 cm3 XCELERA RV diastolic dimension (basal) 24.0 mm XCELERA TAPSE 2.14 cm XCELERA AV peak michael 176.00 cm/s XCELERA LVOT peak michael 1.58 m/s XCELERA AV VTI 34.50 cm XCELERA LVOT peak VTI 31.30 cm XCELERA AV mean gradient 7.00 mmHg XCELERA AV peak gradient 12.39 mmHg XCELERA AI pressure 1/2 time 477 ms XCELERA AV valve area 3.14 XCELERA Valve area - Index 1.4 XCELERA MV pressure 1/2 time 79.00 ms XCELERA MV valve area p 1/2 method 2.78 cm2 XCELERA TR Peak Michael 2.1 m/s XCELERA TR peak gradient 18.00 mmHg XCELERA LV ESV A2C 52.30 mL XCELERA LV ESV A4C 53.20 mL XCELERA LV RWT 2D 58.08 XCELERA AV Velocity Ratio 0.91 XCELERA Left Ventricle Mass 154.67653 [id number] 8 g XCELERA Interventricular Septum Diastolic Thickness by 2D 11.142943 803660641 cm XCELERA Est. RA pressure 3 mmHg XCELERA RA area 15.5 cm2 XCELERA RV Peak Systolic Pressure 21 mmHg XCELERA Anatomical Region Laterality Modality Chest N/A Ultrasound Narrative 09/12/2024 2:55 PM EST Left Ventricle: Left ventricle is small. There [...] right ventricular basal diameter is 24.0 mm. Left Ventricle Left ventricle is small. There is mild increased wall thickness/hypertrophy no LVOT gradient noted. Systolic function visually appears hyperdynamic with an ejection fraction over 70%. See wall score diagram for wall motion abnormalities. Unable to assess diastolic function due to arrhythmia. Lateral E' is 6.67 cm/s. Right Ventricle Right ventricular size appears normal. The right ventricular basal diameter is 24.0 mm. Systolic function is normal. Left Atrium Left atrium volume index is normal. The left atrial volume index is 23.4 mL/m2. Right Atrium Right atrium is normal in size. The right atrial area is 15.5 cm2. IVC/SVC The right atrial pressure is estimated at 3 mmHg. IVC appears normal. There is normal collapse with deep inspiration. Mitral Valve The leaflets are mildly thickened. There is mild annular calcification. There is no regurgitation or stenosis. Tricuspid Valve Tricuspid valve appears to be normal. There is trace to mild regurgitation. RVSP calculated at 21 mmHg. RVSP is based on RA pressure of 3 mmHg. Aortic Valve The aortic valve is trileaflet. There is sclerosis. There is mild regurgitation. There is no evidence of aortic valve stenosis. Pulmonic Valve The pulmonic valve was not well visualized. There is no regurgitation. Ascending Aorta The aortic root is mildly dilated. Pericardium There is no pericardial effusion. The pericardium has a fat pad. Study Details A complete echo was performed using complete 2D, color flow Doppler and spectral Doppler. The study was difficult due to patient's respiration. BP 128/62 Wall Scoring Baseline Score Index: 1.00 The following segments are hyperkinetic: apical anterior, apical septal, apical inferior, apical lateral and apex. All other segments are normal. us Rom Pierre MD CV ECHO ORDERABLES Final Resu lt documented in this encounter Visit Diagnoses Diagnosis Infrarenal abdominal aortic aneurysm (AAA) without rupture Bilateral carotid bruits Cigarette smoker Tobacco use disorder documented in this encounter Care Teams Paving And Surfacing Labourer Relationship Specialty Start Date End Date Sukumar Davison MD [address] [place] [address] PCP - General Family Medicine 09/12/24 documented as of this encounter
--- OUTSIDE RECORDS SUMMARY | 2025-03-17 21:24 | XMS_ITS | Encounter Summary ---
Author Organization [employer] Address [id number] [address] [facility] [address] Care Team Providers Care Last Marker Name Role Phone Sukumar Davison MD Primary Care Provider [phone] Encounter Details Date Type Department Care Team (Late st Contact Info) Description 08/12/2021 Orders Only [facility] [address] [place] [address] Ref Prov, [place] [address] Social History Tobacco Use Types Packs/Day Years Used Date Smoking Tobacco: Every Day Cigarettes 1.5 33.6 Started: 08/08/1991 Comments:pack and a half a d ay Alcohol Use Standard Drinks/Week Comments Never 0 (1 standard drink = 0.6 oz pur e alcohol) Sex and Gender Information Value Date Recorded Sex Assigned at Not on file Legal Sex Male 11:15 AM EST Gender Identity Not on file Sexual Orientation Not on file COVID-19 Exposure Response Date Recorded In the last month, have you been in contact with someone who was confirmed or suspected to have Coronavirus / COVID-19? No / Unsure 08/07/2021 9:59 AM EST documented as of this encounter Plan of Treatment Not on file documented as of this encounter Visit Diagnoses Not on filedocumented in this encounter Care Teams Last Marker Relationship Specialty Start Date End Date Sukumar Davison MD [address] [facility], [facility] [[email or web address] [place] [address] PCP - General Family Medicine 09/12/24 documented as of this encounter
--- OUTSIDE RECORDS SUMMARY | 2025-03-17 21:24 | XMS_ITS | Encounter Summary ---
Author Organization [employer] Address [id number] [address] [place] [address] Care Team Providers Care Spray Gun Sizer Name Role Phone Sukumar Davison MD Primary Care Provider [phone] Encounter Details Date Type Department Care Team (Late st Contact Info) Description 04/06/2024 Orders Only [facility] [address] [place] [id number] Rom Pierre MD [address], [facility] [address] [place], [place] [phone] Social History Tobacco Use Types Packs/Day Years [...] Procedure Name Priority Date/Time Associated Diagnosis Comments VASC VENOUS DUPLEX LOWER RIGHT Routine 01/06/2024 10:26 AM EDT documented in this encounter Results * Vas venous duplex lwr single right (01/06/2024 10:26 AM EDT) Anatomical Region Laterality Modality Vascular Right Ultrasound us Rom Pierre MD CV VASCULAR ORDERABLES Final Result documented in this encounter Visit Diagnoses Not on filedocumented in this encounter Care Teams Spray Gun Sizer Relationship Specialty Start Date End Date Sukumar Davison MD [address] [place] [address] PCP - General Family Medicine 09/12/24 documented as of this encounter
--- OUTSIDE RECORDS SUMMARY | 2025-03-17 21:24 | XMS_ITS | Encounter Summary ---
Author Organization [facility] Address [address] [place] [address] Care Team Providers Care Cut Off Machine Helper Name Role Phone Unavailable Primary Care Provider Unavailabl e Encounter Details Date Type Department Care Team (Late st Contact Info) Description 03/15/2024 Clinisync Result Encounter [facility] External Department Unsolicited Rom Pierre MD [address], [address] [address] Social History Tobacco Use Types Packs/Day Years [...] Name Priority Date/Time Associated Diagnosis Comments VASC US CAROTID ARTERY DUPLEX BILATERAL 03/15/2024 10:27 AM EDT documented in this encounter Results * Vascular US carotid artery duplex bilateral (03/15/2024 10:27 AM EDT) Anatomical Region Laterality Modality Neck Ultrasound 03/15/2024 10:2 7 AM EDT Narrative 03/15/2024 10:30 AM EDT [facility] [address] [place] [address] Ultrasound Report Signed Patient: HECTOR HIGHTOWER MR#: [id number] : 1960 Acct:[id number] Age/Sex: 63 / M ADM Date: 03/14/24 Loc: US Attending Dr: Rom Pierre M.D. Ordering Physician: Rom Pierre M.D. Date of Service: 03/14/24 Procedure(s): US carotid duplex BI Accession Number(s): [id number] cc: Cielo Devries M.D.; Rom Pierre M.D. The [place] [id number] Patient Name: HECTOR HIGHTOWER MRN: [id number] date: 1960 Sex: M Assigned Patient Location: US Current Patient Location: Accession/Order Number: [id number] Exam Date: 03/14/2024 14:01 Report Date: 03/15/2024 [...] ICA-CCA ratios are calculated with sales representative education courses peak-systolic velocities and recorded. Vertebral arteries are [...] Signed By: 03/15/24 1030 DD/ 1027 TD/TT: Frontload Driver: Procedure Note Radiology, Radiologist, - 03/15/2024 The [place] [id number] Ultrasound Report Signed Patient: HECTOR HIGHTOWER AMR#: [id number] : 1960Acct:[id number] Age/Sex: 63 / MADM Date: 03/14/24 Loc: US Attending Dr: Rom Pierre M.D. Ordering Physician: Rom Pierre M.D. Date of Service: 03/14/24 Procedure(s): US carotid duplex BI Accession Number(s): [id number] cc: Cielo Devries M.D.; Rom Pierre M.D. [place] [address] Patient Name: HECTOR HIGHTOWER MRN: [id number] date: 1960 Sex: M Assigned Patient Location: US Current Patient Location: Accession/Order Number: [id number] Exam Date: 03/14/2024 14:01 Report Date: 03/15/2024 [...] ICA-CCA ratios are calculated with sales representative education courses peak-systolic velocities and recorded. Vertebral arteries are evaluated in one segment to evaluate for patency andcharacter of flow. Comparison with previous evaluation is performed when available.Unless otherwise specified, all velocities are measured in cm/sec. Carotidstenosis is reported according to validated velocity parameters, [...] 10:27 Dictated By: Judy Corado M.D. Signed By:03/15/24 1030 DD/ 1027 TD/TT: Frontload Driver: us [facility] Al Pierre MD [facility] PROCEDURES Final Resu lt documented in this encounter Visit Diagnoses Not on filedocumented in this encounter
--- OUTSIDE RECORDS SUMMARY | 2025-03-17 21:24 | XMS_ITS | Encounter Summary ---
Author Organization [facility] Address [address] [place] [address] Phone Care Team Providers Care Vacuum Evaporation Operator Name Role Phone Cielo Devries MD Primary Care Provider [phone] Sukumar Davison MD Primary Care Provider [phone] Encounter Details Date Type Department Care Team (Late st Contact Info) Description 10/10/2022 Orders Only [facility] [address] [place] [address] Conversion, Onbase Social History Tobacco Use Types Packs/Day Years [...] Description 09/20/2025 11:30 AM EST Office Visit [facility] [address] [facility] [address] [place] [phone] Alok Webber, [address] [facility] [address] [place] [address] Scheduled Orders Name Type Priority Associated Diagnoses Orde r Schedule OUTSIDE LAB SCAN Lab Ordered: 10/10/2022 documented as of this encounter Visit Diagnoses Not on filedocumented in this encounter Care Teams Vacuum Evaporation Operator Relationship Specialty Start Date End Date Cielo Devries MD [address] [facility] [place] [address] [place] [address] PCP - General 10/10/22 09/19/24 Sukumar Davison MD [address] [place] [address] PCP - General Family Medicine 09/20/24 documented as of this encounter
--- OUTSIDE RECORDS SUMMARY | 2025-03-17 21:24 | XMS_ITS | Encounter Summary ---
Author Organization [employer] Address [id number] [address] [place] [address] Care Team Providers Care Safemaker Name Role Phone Sukumar Davison MD Primary Care Provider [phone] Encounter Details Date Type Department Care Team (Late st Contact Info) Description 03/16/2024 Orders Only [facility] [address] [place] [address] Urban, Claritza, ELECTRONICS TESTER Bilateral carotid bruits Social History Tobacco Use Types Packs/Day Years [...] Name Priority Date/Time Associated Diagnosis Comments VASC CAROTID DUPLEX BILATERAL Routine 09/12/2024 2:43 PM EST Bilateral carotid bruits documented in this encounter Results * Vas carotid duplex bilateral (09/12/2024 2:43 PM EST) Anatomical Region Laterality Modality Vascular Bilateral Ultrasound 09/12/2024 2:50 PM EST Narrative 09/12/2024 4:34 PM EST Right: Plaque with no significant ICA spectral Doppler or color flow disturbances; ICA 104/32 cm/sec. Antegrade vertebral artery flow. Left: Plaque with no significant ICA spectral Doppler or color flow disturbances; ICA 71/27 cm/sec. Antegrade vertebral artery flow. Conclusions: BILATERAL: Plaque without significant stenosis (<50%) of the internal carotid artery. Antegrade vertebral artery flow. Procedure Note Kana Faith MD - 09/12/2024 Right: Plaque with no significant ICA spectral Doppler or color flowdisturbances; ICA 104/32 cm/sec. Antegrade vertebral artery flow. Left: Plaque with no significant ICA spectral Doppler or color flowdisturbances; ICA 71/27 cm/sec. Antegrade vertebral artery flow. Conclusions: BILATERAL: Plaque without significant stenosis (<50%) of theinternal carotid artery. Antegrade vertebral artery flow. us Rom Pierre MD CV VASCULAR ORDERABLES Final Result documented in this encounter Visit Diagnoses Diagnosis Bilateral carotid bruits documented in this encounter Care Teams Safemaker Relationship Specialty Start Date End Date Sukumar Davison MD [address] [place] [address] PCP - General Family Medicine 09/12/24 documented as of this encounter
--- OUTSIDE RECORDS SUMMARY | 2025-03-17 21:24 | XMS_ITS | Encounter Summary ---
Author Organization [employer] Address [id number] [address] [place] [address] Care Team Providers Care Aviation Support Equipment Repairer Name Role Phone Sukumar Davison MD Primary Care Provider [phone] Encounter Details Date Type Department Care Team (Late st Contact Info) Description 09/14/2024 Orders Only [facility] [address] [place] [address] Rom Pierre MD [address], [place] [id number] Social History Tobacco Use Types Packs/Day Years [...] got money to buy more. Never True 09/14/2024 Within the past 12 months th e food we bought just didn't last and we didn't have money to get more. Never True 09/14/2024 Sex and Gender Information Value Date Recorded Sex Assigned at Not on file Legal Sex Male 11:15 AM EST Gender Identity Not on file Sexual Orientation Not on file documented as of this encounter Plan of Treatment Not on file documented as of this encounter Procedures Procedure Name Priority Date/Time Associated Diagnosis Comments CT CTA ABDOMEN Routine 09/11/2024 8:21 AM EST documented in this encounter Results * CT angiogram abdomen (09/11/2024 8:21 AM EST) Anatomical Region Laterality Modality Body, Abdomen, Body Covera N/A Compu kal Tomography us Rom Pierre MD IMG CT ORDERABLES Final Resul t documented in this encounter Visit Diagnoses Not on filedocumented in this encounter Care Teams Aviation Support Equipment Repairer Relationship Specialty Start Date End Date Sukumar Davison MD [address] [place] [address] PCP - General Family Medicine 09/12/24 documented as of this encounter
--- OUTSIDE RECORDS SUMMARY | 2025-03-17 21:24 | XMS_ITS | Clinical Summary ---
Author Organization [employer] tem Address [id number] [address] [place] [address] Care Team Providers Care Brick Pitcher Name Role Phone Sukumar Davison MD Primary Care Provider [phone] Allergies Active Allergy Reactions Criticality Noted Date Comments Ciprofloxacin Hcl 08/08/2021 Penicillins Swelling 08/08/2021 Pneumococcal Vaccine Nausea And Vomiting 2021 Medications albuterol (PROVENTIL HFA;VENTOLIN HFA) 90 mcg/actuation inhaler 07/21/2021 Active acetaminophen 325 mg capsule Take by mouth. Active losartan (COZAAR) 50 mg tablet Take 1 tablet (50 mg total) by mouth in the morning. 02/09/2022 Active atorvastatin (LIPITOR) 80 mg tablet Take 1 tablet (80 mg total) by mouth in the morning. 2023 Active BRILINTA 90 mg tablet Take 1 tablet (90 mg total) by mouth every 12 (twelve) hours. 06/27/2023 Active aspirin 81 mg chewable tablet Chew 1 tablet (81 mg total) and swallow in the morning. 07/09/2023 Active nitroglycerin (NITROSTAT) 0.[address] 1 tablet (0.4 mg total) under the tongue every 5 (five) minutes as needed. Active clopidogreL (PLAVIX) 75 mg tablet Take 1 tablet (75 mg total) by mouth in the morning. At night time. 09/20/2024 Active Active Problems Problem Noted Date Diagnosed Date Penetrating atherosclerotic ulcer of aorta 12/14 Assessment & Plan (12/14/2024 11:05 AM EDT): Smoking cessation. Blood pressure control and risk factors modification. Aspirin and statin 81 mg of aspirin 80 of Lipitor Plavix 75 mg and surveillance imaging in a year. Aortic aneurysm 11/14/2024 Encounter for therapeutic drug monitoring 2024 Cigarette smoker motivated to quit 09/14/2024 Assessment & Plan (09/14/2024 5:49 PM EST): Counseled him for at least 3 minutes he is willing to quit Bilateral carotid bruits 03/09/2024 Assessment & Plan (09/14/2024 5:52 PM EST): Carotid stenosis mild bilaterally S medical therapy. He is on aspirin statin and Plavix. We will continue those. Assessment & Plan (03/09/2024 11:04 AM EDT): Best medical therapy and smoking cessation.Carotid duplex ultrasound Cigarette smoker 03/09/2024 Assessment & Plan (03/09/2024 11:04 AM EDT): Counseled on smoking cessation at length. AAA (abdominal aortic aneurysm) without rupture 03/05/2022 Assessment & Plan (12/14/2024 11:04 AM EDT): Successful exclusion aneurysm no endoleak. Follow-up in a year with a CTA of the abdomen pelvis Assessment & Plan (09/14/2024 5:49 PM EST): I discussed with him the finding in the CT scan. Discussed different options and he would like to proceed with repair. Assessment & Plan (03/09/2024 11:03 AM EDT): 5.2 cm infrarenal abdominal aortic aneurysm. We discussed different options. He would like to repeat his scan in 6 months. Continue to smoke. I counseled him on smoking cessation in length. Arthritis of right glenohumeral joint 03/05/2022 Bronchitis, asthmatic 03/05/2022 Cigarette nicotine dependenc e with nicotine-induced disorder 03/05/2022 Diastolic blood pressure 90 mm Hg or higher 02/23 Dyspnea on exertion 03/05/2022 Essential hypertension 03/05/2022 Exposure to silica 03/05/2022 Mass of right lung 03/05/2022 Muscle spasm 03/05/2022 Nausea 03/05/2022 Neck pain on left side 03/05/2022 Obesity with body mass index (BMI) of 30.0 to 39 .9 03/05/2022 Arthralgia 03/05/2022 Pain, joint, shoulder, right 03/05/2022 Sepsis due to pneumonia 03/05/2022 Situational anxiety 03/05/[address] scan, chest 03/31/2019 Overview (03/05/2022): Abnormal chest CT scan Generalized osteoarthritis 03/16/2019 Overview (03/05/2022): Osteoarthritis, generalized Other malaise and fatigue 03/16/2019 Overview (03/05/2022): Fatigue Adverse effects in the thera peutic use of other and unspecified bacterial vaccines 05/04/2018 Overview (03/05/2022): Pneumococcal vaccine adverse reaction Other and unspecified derangement of medial meni scus 05/02/2018 Overview (03/05/2022): Derangement of medial meniscus of left knee Obstructive chronic bronchitis with exacerbation 05/26/2017 Overview (03/05/2022): COPD, acute exacerbation Nonspecific (abnormal) findi ngs on radiological and other examination of lung field 08/01/2015 Overview (03/05/2022): Abnormal chest xray COPD (chronic obstructive pulmonary disease) 10/2015 Overview (03/05/2022): COPD Other sleep disturbances 07/29/2015 Overview (03/05/2022): Sleep disorder, breathing related Tobacco use disorder 07/29/2015 Overview (03/05/2022): Tobacco abuse Encounters Date Type Department Care Team Description 01/23/2025 Telephone [facility] [address] [address] Rom Pierre MD from Last 3 Months Immunizations Immunization Administration Dates Next Due Pneumococcal Conjugate 13-Valent 05/26/2017 Pneumococcal Polysaccharide 05/02/2018 Family History Medical History Relation Name Comments Anesthesia problems Neg Hx Social History Tobacco Use Types Packs/Day Years Used Date Smoking Tobacco: Every Day Cigarettes 1.5 33.6 Started: 08/08/1991 Smokeless Tobacco: Never Tobacco Cessation:Ready to Q uit: Not Asked; Counseling Given: Not Answered Comments:pack and a half a day pt reports he is really trying to quit 09/04/21 Alcohol Use Standard Drinks/Week Comments Never 0 (1 standard drink = 0.6 oz pur e alcohol) [facility] Utilities Answer Date Recorded In the past 12 months has th e electric, gas, oil, or water company threatened to shut off services in your home? No 11/14/2024 AUDIT-C Answer Date Recorded Q1: How often do you have a drink containing alcohol? Never 11/14/2024 Q2: How many drinks containi ng alcohol do you have on a typical day when you are drinking? Patient does not drink Q3: How often do you have si x or more drinks on one occasion? Never 11/14/2024 PHQ-2 Answer Date Recorded Total Score 0 11/14/2024 PRAPARE - Transportation Answer Date Re corded In the past 12 months, has l ack of transportation kept you from medical appointments or from getting medications? No 10/25 In the past 12 months, has l ack of transportation kept you from meetings, work, or from getting things needed for daily living? No 11/14/2024 Housing Instability Answer Date Recorde d Are you worried or concerned that in the next two months you may not have stable housing that you own, rent or stay in as a part of a household? No 11/14/2024 Hunger Screening Answer Date Recorded Within the past 12 months we worried whether our food would run out before we got money to buy more. Never True 12/14/2024 Within the past 12 months th e food we bought just didn't last and we didn't have money to get more. Never True 12/14/2024 Sex and Gender Information Value Date Recorded Sex Assigned at Not on file Legal Sex Male 11:15 AM EST Gender Identity Not on file Sexual Orientation Not on file Last Filed Vital Signs Vital Sign Reading Time Taken Comments Blood Pressure 122/76 12/14/2024 10:22 AM EDT Pulse 51 12/14/2024 10:22 AM EDT Temperature 36.3 C (97.3 F) 12/14/2024 10:22 AM EDT Respiratory Rate 16 11/15/2024 7:41 AM EDT Oxygen Saturation 98% 12/14/2024 10:22 AM EDT Inhaled Oxygen Concentration - - Weight 108.9 kg (240 lb) 12/14/2024 10:22 AM EDT Height 167.6 cm (5' 6 ) 12/14/2024 10:22 AM EDT Body Mass Index 38.74 12/14/2024 10:22 AM EDT Plan of Treatment Health Maintenance Due Date Last Done Comments Tobacco Counseling 1960 Adult BMI Follow Up Plan 1978 DTaP,Tdap and Td Vaccines (1 - Tdap) 1979 Zoster (Shingles) Vaccine (1 of 2) 2010 Influenza Vaccine 03/26/2025 Depression Screening 11/14/2025 11/14/2024 Adult BMI Screening 12/14/2025 12/14/2024 Tobacco Screening 12/14/2025 12/14/2024 Medical Devices Implanted Type Area Jewelry Estimator Device Identifier Shelf Expiration Date Model / Serial / Lot Pretty-Fx Endoanchor System Implanted:Qty: 1 on 11/14/2024 by Rom Pierre MD at [facility] [place] N/A: Groin [employer] [facility] [id number] 08/23/2026 SA-85 / / [id number] Graft Stnt 103mm 14-36mm 20fr Endurant Iis 2 Brch Evas [facility] - [id number] - [id number] Implanted:Qty: 1 on 11/14/2024 by Rom Pierre MD at [facility] Stent N/A: Groin [employer] [facility] 07/10/2026 [id number] / [id number] / Graft Stnt 124mm 20-16mm 16fr Endurant Ii 177-197mm - [id number] - [id number] Implanted:Qty: 1 on 11/14/2024 by Rom Pierre MD at [facility] Stent N/A: Groin [employer] [facility] 07/05/2026 [id number] / [id number] / Description:RIGHT COMMON RAFA AC Graft Stnt 146mm 16mm 20fr Endurant Ii 2 Brch Evas Aaa - [id number] - [id number] Implanted:Qty: 1 on 11/14/2024 by Rom Pierre MD at [facility] Stent N/A: Groin [employer] [facility] 05/24/2026 [id number] / [id number] / Insurance [employer] Member Subscriber Plan / Payer (Ef fective 2022-Present) Name:Dennis Gaspar Sr. Relation to Subscriber:Self Name:Dennis Gaspar Sr. Payer ID:[id number] (NAIC) Group ID:Not on file Type:Not on file Address: [place] [id number] Care Teams Brick Pitcher Relationship Specialty Start Date End Date Sukumar Davison MD [address] [facility], [place] [phone] PCP - General Family Medicine 09/12/24
--- OUTSIDE RECORDS SUMMARY | 2025-03-17 21:24 | XMS_ITS | Patient Health Record ---
Author Organization [facility] in [place] Address [address] [place] [address] Care Team Providers Care Tuna Purse Seiner Name Role Phone Clifford Davison Primary Care Provider MazinJordy Unavailable [phone] Allergies Allergen (clinical drug ingredient) Drug/Non Drug Allergy documented on EMR Reaction Allergy Type Onset Date Status Penicillin hives Drug Allergy Active Results Component Value Reference Range Notes AMYLASE Reviewed date:11/23/2024 03:46:57 PM Interpretation: Performing Lab: Notes/Report: [facility] , Amylase 42 25-115 U/L Performing Lab: see note ML - [facility] LB FERRITIN Reviewed date:11/23/2024 08:19:47 PM Interpretation: Performing Lab: Notes/Report: [facility] , Ferritin 195.0 26.0-388.0 ng/mL Performing Lab: see note ML - [facility] LB IRON Reviewed date:11/23/2024 08:19:47 PM Interpretation: Performing Lab: Notes/Report: [facility] , Iron 28.0 65.0-175.0 ug/dL Performing Lab: see note ML - [facility] LB LIPASE Reviewed date:11/23/2024 03:46:57 PM Interpretation: Performing Lab: Notes/Report: [facility] , Lipase 77.0 16.0-77.0 U/L Performing Lab: see note - [facility] LB UA DIP NONAUTO WO MICRO ([phone]) - IN OFFICE Reviewed date:11/23/2024 03:18:37 PM Interpretation: Performing Lab: Notes/Report: COLOR yellow CLARITY cloudy GLUCOSE neg BILIRUBIN neg KETONE neg SPECIFIC GRAVITY 1.020 BLOOD neg PH 5 PROTEIN + UROBILINOGEN neg NITRITE ++ LEUKOCYTE ESTERASE +++ INSULIN Reviewed date:07/30/2024 08:34:37 PM Interpretation: Performing Lab: Notes/Report: [facility] , Insulin 33.2 2.6-24.9 uIU/mL Performed at: [facility] Machine Etcher: Matthew Christian PhD, Phone: [phone] [address] [place], [place] [id number] Performing Lab: see note - [facility] LB CBC AUTO DIFF Reviewed date:07/20/2024 08:06:44 PM Interpretation: Performing Lab: Notes/Report: [facility] , White Blood Count 5.9 4.0-11.0 10 3/uL Red Blood Count 4.59 4.70-6.10 10 6/uL Hemoglobin 13.8 14.0-18.0 g/dL Hematocrit 41.6 42.0-54.0 % Mean Corpuscular Volume 90.6 80.0-94.0 fL Mean Corpuscular Hemoglobin 30.1 25.9-34.0 pg Mean Corpuscular HGB Conc 33.2 29.9-35.2 g/dL Red Cell Distribution Width 12.5 11.0-15.0 % Platelet Count 237 150-450 10 3/uL Mean Platelet Volume 9.3 9.5-13.5 fL Neutrophils Percent Auto 50.6 43.0-75.0 % Lymphocytes Percent Auto 31.1 20.5-60.0 % Monocytes Percent Auto 13.5 1.7-12.0 % Eosinophils Percent Auto 3.6 0.9-7.0 % Basophils Percent Auto 0.7 0.2-2.0 % Immature Granulocytes Pct Auto 0.5 0.0-0.5 % Neutrophils Absolute Auto 3.0 1.4-6.5 10 3/uL Lymphocytes Absolute Auto 1.8 1.2-3.8 10 3/uL Monocytes Absolute Auto 0.8 0.3-0.8 10 3/uL Eosinophils Absolute Auto 0.2 0.0-0.7 10 3/uL Basophils Absolute Auto 0.0 0.0-0.1 10 3/uL Immature Granulocytes Abs Auto 0.03 0.00-0.03 10 3/uL Performing Lab: see note - [facility] LB INSULIN Reviewed date:07/22/2024 09:00:34 PM Interpretation: Performing Lab: Notes/Report: [facility] , Insulin 69.3 2.6-24.9 uIU/mL [address] [place], [place] [id number] [facility]formed at: [facility] Machine Etcher: Matthew Christian PhD, Phone: [phone] Performing Lab: see note LC - [facility] LB ECG 12 lead Reviewed date:08/13/2024 02:45:53 PM Interpretation: Performing Lab: Notes/Report: Source Facility: [place] [address] [place] [address] Electrocardiograph Report Signed Patient: HECTOR GASPAR MR#: [id number] : 1960 Acct:[id number] Age/Sex: 64 / M ADM Date: 08/10/24 Loc: ER Attending Dr: Ordering Physician: Lennie Mccoy Date of Service: 08/10/24 Procedure(s): ECG 12 lead Accession Number(s): [id number] cc: [facility] Test Date: 2024-08-10 Pat Name: HECTOR GASPAR Department: Room: - Gender: Male Delinquency Counselor: : 1960 Requested By: SEYMOUR DAVISON Order Number: [id number] Reading MD: VIRAL YANG Measurements Intervals [place] Rate: 76 P: 21 [place]: 160 QRS: 61 QRSD: 92 T: 68 QT: 394 QTc: 424 Interpretive Statements 1100 Sinus rhythm 1475 with frequent supraventricular premature complexes in a pattern of bigeminy 79584 Cannot rule out inferior myocardial infarction probably old 9150 abnormal ECG Compared to ECG 08/10/2024 19:41:05 No significant changes Electronically Signed On 08-12-2024 8:05:41 EST by VIRAL YANG Dictated By: Viral Yang D.O. Signed By: 08/12/24804 DD/ 40 TD/TT: [employer] Loader: [place] [address] Electrocardiograph Report Signed Patient: HECTOR GASPAR MR#: [id number] : 1960 Acct:[id number] Age/Sex: 64 / M ADM Date: 08/10/24 Loc: ER Attending Dr: Ordering Physician: Lennie Mccoy Date of Service: 08/10/24 Procedure(s): ECG 12 lead Accession Number(s): [id number] cc: [facility] Test Date: 2024-08-10 Pat Name: HECTOR GASPAR Department: 46 Room: - Gender: Male Delinquency Counselor: : 1960 Requ ested By: SEYMOUR DAVISON Order Number: [id number] Reading MD: VIRAL YANG Measurements Intervals [place] Rate: 76 P: 21 [place]: 160 QRS: 61 QRSD: 92 T: 68 QT: 394 QTc: 424 Interpretive Statements 1100 Sinus rhythm 1475 with frequent supraventricular premature complexes in a pattern of bigeminy 09608 Cannot rule ou t inferior myocardial infarction probably old 9150 abnormal ECG Compared to ECG 08/10/2024 19:41:05 No significant changes Electronically Oanh d On 08-12-2024 8:05:41 EST by VIRAL YANG Dictated By: Viral Yang D.O. Signed By: 08/12/24804 DD/ 40 TD/TT: [employer] Loader: CT lung screening low-dose Reviewed date:08/15/2024 01:19:17 PM Interpretation: Performing Lab: Notes/Report: Source Facility: [place] [address] [place] [address] CT Scan Report Signed Patient: HECTOR GASPAR MR#: [id number] : 1960 Acct:[id number] Age/Sex: 64 / M ADM Date: 08/11/24 Loc: CT Attending Dr: Seymour Davison M.D. Ordering Physician: Seymour Davison M.D. Date of Service: 08/11/24 Procedure(s): CT lung screening low-dose Accession Number(s): [id number] cc: Seymour Davison M.D. [place] [id number] Patient Name: HECTOR GASPAR MRN: [id number] date: 1960 Sex: M Assigned Patient Location: CT Current Patient Location: Accession/Order Number: [id number] Exam Date: 08/11/2024 15:18 Report Date: 08/15/2024 08:25 At the request of: SEYMOUR DAVISON Procedure: CT lung screening low-dose EXAMINATION: CT lung screening low-dose HISTORY: Lung Mass COMPARISON: CT chest 03/30/2019, chest x-ray 08/10/2024 TECHNIQUE: Axial, Coronal, and Sagittal images were created without the administration of IV contrast material. Dose reduction techniques were achieved by using automated exposure control and/or adjustment of mA and/or kV according to patient size and/or use of iterative reconstruction technique. FINDINGS: LUNGS: Partial consolidation of the right lower lobe superior segments which appears to be due to central bronchial obstruction; possible 1.8 cm mass within versus compressing the right lower lobe bronchus. PLEURA: No mass, effusion, or pneumothorax. VASCULATURE: No abnormality. MEG: Right hilar adenopathy. MEDIASTINUM: Mild adenopathy. CARDIAC: No enlargement, pericardial thickening, or pericardial effusion. Coronary Artery calcifications: Coronary calcifications are moderate. AORTA: No aneurysm or dissection. CHEST WALL: No mass or axillary adenopathy BONES: No bone lesion or fracture. LIMITED ABDOMEN: No suspicious findings. Limited images of the upper abdomen. OTHER: Negative. CT/CT lung screening low-dose IMPRESSION: 1. Collapse of the right lower lobe superior segment which appears to be due to obstruction of the segmental bronchus. There is marked narrowing, nearly complete occlusion of the right lower lobe main bronchus which appears to be due to an intraluminal mass versus external mass compressing the bronchus. Bronchoscopy should be considered for direct visualization and tissue sampling. Electronically authenticated by: DWIGHT HART Date: 08/15/2024 08:25 Dictated By: Dwight Hart M.D. Signed By: 08/15/24827 DD/ 4 TD/TT: Thermite Bomb Loader: [place] [address] CT Scan Report Signed Patient: HECTOR GASPAR MR#: [id number] : 1960 Acct:[id number] Age/Sex: 64 / M ADM Date: 08/11/24 Loc: CT Attending Dr: Maryjo Davison M.D. Ordering Physician: Seymour Davison M.D. Date of Service: 08/11/24 Procedure(s): CT andrei g screening low-dose Accession Number(s): [id number] cc: Seymour Davison M.D. [place] [address] Patient Name: HECTOR GASPAR MRN: [facility]:[id number] date: 1960 Sex: M Assigned Patient Location: CT Current Patient Location: Accession/Order Numb er: [id number] Exam Date: 08/11/2024 15:18 Report Date: 08/15/2024 08:25 At the request of: SEYMOUR DAVISON Procedure: CT lung screening low-dose EXAMINATION: CT lung screening low-dose HISTORY: Lung Mass COMPARISON: CT chest 03/30/2019, chest x-ray 08/10/2024 TECHNIQUE: Axial, Coronal, and Sagittal images were created without the administration of IV contrast material. Dose reduction techniques were achieved by using automated exposure control and/or adjustment of mA and/or kV according to patient size and/ or use of iterative reconstruction technique. FINDINGS: LUNGS: Partial consolidation of the right lower lobe superior segments which appears to be due to central bronchial obstruction; possible 1.8 cm mass within versus compressing t he right lower lobe bronchus. PLEURA: No mass, effusion, or pneumothorax. VASCULATURE: No abnormality. MEG: Right hilar adenopathy. MEDIASTINUM: Mild adenopathy. CARDIAC: No enlargem ent, pericardial thickening, or pericardial effusion. Coronary Artery calcifications: Coronary calcifications are moderate. AORTA: No aneurysm o r dissection. CHEST WALL: No mass or axillary adenopathy BONES: No bone lesio n or fracture. LIMITED ABDOMEN: No suspicious findings. Limited images of the upper abdomen. OTHER: Negative. C T/CT lung screening low-dose IMPRESSION: 1. Collapse of the r ight lower lobe superior segment which appears to be due to obstruction of the segmental bronchus. There is marked narrowing, nearly complete occlusion o f the right lower lobe main bronchus which appears to be due to an intralumin al mass versus external mass compressing the bronchus. Bronchoscopy should be considered for direct visualization and tissue sampling. Electronically authenticated by: DWIGHT HART Date: 08/15/2024 08:25 Dictated By: Dwight Hart M.D. Signed By: 08/15/24827 DD/ 4 TD/TT: Thermite [employer] Loader: CT angio abdomen pelvis Reviewed date:09/11/2024 06:23:54 PM Interpretation: Performing Lab: Notes/Report: Source Facility: [place] [address] CT Scan Report Signed Patient: HECTOR GASPAR MR#: [id number] : 1960 Acct:[id number] Age/Sex: 64 / M ADM Date: 09/11/24 Loc: CT Attending Dr: Rom Pierre M.D. Ordering Physician: Rom Pierre M.D. Date of Service: 09/11/24 Procedure(s): CT angio abdomen pelvis Accession Number(s): [id number] cc: Seymour Davison M.D. [place] [address] Patient Name: HECTOR GASPAR MRN: [id number] date: 1960 Sex: M Assigned Patient Location: CT Current Patient Location: CT Accession/Order Number: [id number] Exam Date: 09/11/2024 13:03 Report Date: 09/11/2024 [...] Signed By: 09/11/24 1600 DD/ 1557 TD/TT: Ther[employer] Loader: [place] [address] CT Scan Report Signed Patient: HECTOR GASPAR MR#: [id number] : 1960 Acct:[id number] Age/Sex: 64 / M ADM Date: 09/11/24 Loc: CT Attending Dr: Cat Pierre M.D. Ordering Physician: Rom Pierre M.D. Date of Service: 09/11/24 Procedure(s): CT ang io abdomen pelvis Accession Number(s): [id number] cc: Seymour Davison M.D. [address] [address] Patient Name: HECTOR GASPAR MRN: [id number] date: 1960 Sex: M Assigned Patient Location: CT Current Patient Loca tion: CT Accession/Order Numb er: [id number] Exam Date: 09/11/2024 13:03 Report Date: 09/11/2024 15:57 At the request of: ROM PIERRE Procedure: CT angio abdomen pelvis EXAM: CT angio abdom en pelvis HISTORY: Aortic aneurysm COMPARISON: Ultrasou nd from 07/15/2023 TECHNIQUE: CT angio abdomen pelvis FINDINGS: VASCULATURE: DISTAL DESCENDING THORACIC AORTA: Moderate atherosclerotic disease without a significant abnormality. ABDOMINAL AORTA: Sev ere atherosclerotic disease. There is a largely thrombosed infrarenal abdominal aortic aneurysm measuring 5.2 x 5.0 cm. When compared to the ultrasound from 2022, this has not significantly changed. CELIAC AXIS: No significant abnormality. SMA: Mild atheroscle rotic narrowing of the proximal segment. RIGHT RENAL: No significant abnormality. Small accessory right renal artery. LEFT RENAL: No significant abnormality. JONI: Not well opacif ied at its origin but perfused via collateral flow. RIGHT ILIAC / PROXIM AL FEMORAL ARTERIES: Moderate atherosclerotic disease. Ectasia of the right common iliac artery to 1.9 cm (image 135 of series 4). LEFT ILIAC / PROXIMA L FEMORAL ARTERIES: Moderate atherosclerotic disease. Ectasia of the left common iliac artery to 1.8 cm. ----- LOWER CHEST: LUNG BASES / PLEURA: Normal. DISTAL ESOPHAGUS: Normal. HEART / VESSELS: Mod erate coronary artery disease. ABDOMEN and PELVIS: LIVER: Normal. BILIARY TRACT: Normal. GALLBLADDER: No abnormality. PANCREAS: Normal. SPLEEN: Normal. ADRENALS: Normal. KIDNEYS: Normal. LYMPH NODES: None enlarged. STOMACH / SMALL SANDEEP L: No abnormality. COLON / APPENDIX: Co lonic diverticulosis PERITONEUM / MESENTE RY: Normal. RETROPERITONEUM: Normal. OTHER VESSELS: No significant abnormality. URINARY BLADDER: Mul tiple urinary bladder diverticula. REPRODUCTIVE ORGANS: No abnormality. BODY WALL: No signif icant abnormality. MUSCULOSKELETAL: No acute abnormality. Mild degenerative arthrosis of both hips. Multilevel degenerative changes of the thoracolumbar spine. C T/CT angio abdomen pelvis IMPRESSION: 1. Largely thrombose d infrarenal abdominal aortic aneurysm measuring up to 5.2 cm, not significantl y changed when compared to the ultrasound from 07/15/2023. 2. Bilateral common iliac artery ectasia and other findings as above. Electronically authenticated by: AUGUSTA LEONARDO Date: 09/11/2024 15:57 Dictated By: Augusta Leonardo M.D. Signed By: 09/11/24 1600 DD/ 1557 TD/TT: [employer]er: CRP Reviewed date:09/21/2024 08:04:03 PM Interpretation: Performing Lab: Notes/Report: [facility] , C Reactive Protein <0.50 <=0.50 mg/dL Performing Lab: see note ML - [facility] LB LIPID PROFILE Reviewed date:09/21/2024 08:04:03 PM Interpretation: Performing Lab: Notes/Report: [facility] , Triglycerides 309 <=150 mg/dL Cholesterol 174 <=200 mg/dL HDL Cholesterol 42 40-60 mg/dL > or =60 mg/dl - LOW CARDIOVASCULAR RISK <40 mg/dl - HIGH CARDIOVASCULAR RISK LDL Cholesterol Calculated 71.0 130-159 mg/dl BORDERLINE HIGH 160-189 mg/dl HIGH >190 mg/dl VERY HIGH 100-129 mg/dl NEAR OR ABOVE OPTIMAL <100 mg/dl OPTIMAL VLDL CHOLESTEROL 61.8 Chol HDL Ratio 4.1 >11.0 HIGH RISK 3.3 - 4.4 LOW RISK 4.4 - 7.1 AVERAGE RISK 7.1 - 11.0 MODERATE RISK Performing Lab: see note ML - [facility] LB SGOT Reviewed date:09/21/2024 08:04:03 PM Interpretation: Performing Lab: Notes/Report: [facility] , Aspartate Amino Transferase 20 15-37 U/L Performing Lab: see note ML - [facility] LB SGPT Reviewed date:09/21/2024 08:04:03 PM Interpretation: Performing Lab: Notes/Report: [facility] , Alanine Aminotransferase 35 16-63 U/L Performing Lab: see note ML - [facility] LB XR chest 2V Reviewed date:09/28/2024 09:06:06 PM Interpretation: Performing Lab: Notes/Report: Source Facility: [facility] [place] [address] [place] [address] XRay Report Signed Patient: HECTOR GASPAR MR#: [id number] : 1960 Acct:[id number] Age/Sex: 64 / M ADM Date: 09/27/24 Loc: [facility] Attending Dr: DELL ARMIJO Ordering Physician: DELL ARMIJO Date of Service: 09/27/24 Procedure(s): XR chest 2V Accession Number(s): [id number] cc: Seymour Davison M.D.; DELL ARMIJO [place] [address] Patient Name: HECTOR GASPAR MRN: [id number] date: 1960 Sex: M Assigned Patient Location: [facility] Current Patient Location: [facility] Accession/Order Number: [id number] Exam Date: 09/27/2024 23:32 Report Date: 09/27/2024 23:34 At the request of: DELL ARMIJO Procedure: XR chest 2V Chest 2 views CLINICAL HISTORY: Lung Mass R91.8 COMPARISON: Chest 09/03/2024 FINDINGS: Heart normal in size. Prominence of the medial aspect of the right lower lobe likely related to the patient's known mass seen on a prior CT study from 08/11/2024. No new consolidation pneumothorax pleural effusion or free air. XR/XR chest 2V IMPRESSION: PROMINENCE OF THE MEDIAL ASPECT OF THE RIGHT LOWER LOBE LIKELY REPRESENTING THE PATIENT'S KNOWN MASS SEEN ON A PRIOR CT STUDY. NO NEW PROCESS IS SEEN. Impression dictated by: Parrish Layton Jr., D.O.09/27/2024 11:34 PM Dictation Location: [facility]18 Electronically authenticated by: [id number] Y Date: 09/27/2024 23:34 Dictated By: Parrish Layton M.D. Signed By: 09/27/242336 DD/ 33 TD/TT: Therm[employer] Bomb Loader: [place] [address] XRay Report Signed Patient: HECTOR GASPAR MR#: [id number] : 1960 Acct:[id number] Age/Sex: 64 / M ADM Date: 09/27/24 Loc: [facility] Attending Dr: MITCHELL ARMIJO Ordering Physician: DELL ARMIJO Date of Service: 09/27/24 Procedure(s): XR chest 2V Accession Number(s): [id number] cc: Seymour Davison M.D. ; DELL ARMIJO [place] [address] Patient Name: HECTOR GASPAR MRN: [id number] date: 1960 Sex: M Assigned Patient Location: RAD Current Patient Loca tion: RAD Accession/Order Numb er: [id number] Exam Date: 09/27/2024 23:32 Report Date: 09/27/2024 23:34 At the request of: DELL ARMIJO Procedure: XR chest 2V Chest 2 views CLINICAL HISTORY: Sarah ng Mass R91.8 COMPARISON: Chest 09/03/2024 FINDINGS: Heart normal in size . Prominence of the medial aspect of the right lower lobe likely related to th e patient's known mass seen on a prior CT study from 08/11/2024. No new consolidation pneumothorax pleural effusion or free air. X R/XR chest 2V IMPRESSION: PROMINENCE OF THE ME DIAL ASPECT OF THE RIGHT LOWER LOBE LIKELY REPRESENTING THE PATIENT'S KNOWN MASS SEEN ON A PRIOR CT STUDY. NO NEW PROCESS IS SEEN. Impression dictated by: Parrish Layton Jr., DEhsanOEhsan09/27/2024 11:34 PM Dictation Location: [facility]18 Electronically authenticated by: [id number] Y Date: 09/27/2024 23:34 Dictated By: Parrish Layton M.D. Signed By: 09/27/24 2337 DD/ 2334 TD/TT: [employer]er: RT pulmonary function test Reviewed date:10/17/2024 12:24:25 PM Interpretation: Performing Lab: Notes/Report: Source Facility: [place] [address] [place] [address] Respiratory Report Signed Patient: HECTOR GASPAR MR#: [id number] : 1960 Acct:[id number] Age/Sex: 64 / M ADM Date: 10/16/24 Loc: CARD Attending Dr: DELL ARMIJO Ordering Physician: DELL ARMIJO Date of Service: 10/16/24 Procedure(s): RT pulmonary function test Accession Number(s): [id number] cc: [facility] Test Date: 2024-10-16 Pat Name: HECTOR GASPAR Department: Room: - Gender: Male Delinquency Counselor: Oralia Simmons RRT : 1960 Requested By: 868 Order Number: [id number] Reading MD: Jordy Mcrae Interpretive Statements Pulmonary function testing was completed according to ATS criteria. Findings were considered accurate and reproducible, with exception of DLCO which did not meet ATS standards. Both pre- and post-bronchodilator values utilized for spirometry. Spirometry: -FEV1/FVC: Normal @ 73% -FEV1: Mildly reduced @ 72% -FVC: Mildly reduced @ 74% -There is no significant bronchodilator response. Lung volumes by plethysmography: -RV: Increased @ 185% -TLC: Normal @ 110% Diffusion capacity: -DLCO: Moderate reduction @ 57% when corrected for Hb 14.2g/dL Comparison from 08/10/2022: -FEV1/FVC: 74% -FEV1: 79% -FVC: 80% -T% -DLCO: 69% Impressions: -Spirometry is trending towards a moderate obstructive pattern without a bronchodilator response. Elevated RV could indicate air trapping. Moderate diffusion impairment. Overall study suggests underlying COPD/emphysema. When compared to prior testing, there is a slight decline in spirometry and mild-moderate decrease in DLCO, possibly indicating desease progression. Clinical correlation required. Electronically Signed On 10-17-2024 8:47:01 EDT by Jordy Mcrae Dictated By: Jordy Mcrae D.O. Signed By: 10/17/24 0847 DD/ 0914 TD/TT: Thermite [employer] Loader: The [address] [address] Respiratory Report Signed Patient: HECTOR GASPAR MR#: [id number] : 1960 Acct:[id number] Age/Sex: 64 / M ADM Date: 10/16/24 Loc: CARD Attending Dr: MITCHELL ARMIJO Ordering Physician: DELL ARMIJO Date of Service: 10/16/24 Procedure(s): RT pulmonary function test Accession Number(s): [id number] cc: [facility] Test Date: 2024-10-16 Pat Name: HECTOR GASPAR Department: 46 Room: - Gender: Male Technic suzy: Oralia Simmons RRT : 1960 Requested By: 868 Order Number: [id number] Reading MD: Jordy Mcrae Interpretive Statements Pulmonary function testing was completed according to ATS criteria. Findings were considered accu rate and reproducible, with exception of DLCO which did not meet ATS standar ds. Both pre- and post-bronchodilator values utilized for spirometry. Spirometry: -FEV1/FVC: Normal @ 73% -FEV1: Mildly reduce d @ 72% -FVC: Mildly reduced @ 74% -There is no signifi cant bronchodilator response. Lung volumes by plethysmography: -RV: Increased @ 185% -TLC: Normal @ 110% Diffusion capacity: -DLCO: Moderate redu ction @ 57% when corrected for Hb 14.2g/dL Comparison from 08/10/2022: -FEV1/FVC: 74% -FEV1: 79% -FVC: 80% -T% -DLCO: 69% Impressions: -Spirometry is trend ing towards a moderate obstructive pattern without a bronchodilator respo nse. Elevated RV could indicate air trapping. Moderate diffusion impairment . Overall study suggests underlying COPD/emphysema. When compared to flaca or testing, there is a slight decline in spirometry and mild-moderate decrea se in DLCO, possibly indicating desease progression. Clinical correlation required. Electronically Oanh d On 10-17-2024 8:47:01 EDT by Jordy Mcrae Dictated By: Barney Mcrae D.O. Signed By: 10/17/24 0847 DD/ 0914 TD/TT: Thermite [employer] Loader: PROF GRAZYNA Leigh ([facility]) Reviewed date:11/26/2024 05:00:27 PM Interpretation: Performing Lab: Notes/Report: [facility] , Sodium 131 136-145 mmol/L Potassium 4.2 3.5-5.1 mmol/L Chloride 101 98-107 mmol/L Carbon Dioxide 27.7 21.0-32.0 mmol/L Anion Gap 6.5 Glucose 109 74-106 mg/dL Blood Urea Nitrogen 22.0 7.0-18.0 mg/dL Creatinine 1.44 0.70-1.30 mg/dL Estimated GFR ( Anna 60 >=60 mL/min/1.73m 2 Estimated GFR (Non- Diana 49 >=60 mL/min/1.73m 2 BUN Creatinine Ratio 15.3 Calcium 9.1 8.5-10.1 mg/dL Performing Lab: see note ML - [facility] LB CBC AUTO DIFF Reviewed date:03/15/2025 01:17:47 PM Interpretation: Performing Lab: Notes/Report: [facility] , White Blood Count 5.6 4.0-11.0 10 3/uL Red Blood Count 4.81 4.70-6.10 10 6/uL Hemoglobin 14.5 14.0-18.0 g/dL Hematocrit 42.1 42.0-54.0 % Mean Corpuscular Volume 87.5 80.0-94.0 fL Mean Corpuscular Hemoglobin 30.1 25.9-34.0 pg Mean Corpuscular HGB Conc 34.4 29.9-35.2 g/dL Red Cell Distribution Width 13.2 11.0-15.0 % Platelet Count 216 150-450 10 3/uL Mean Platelet Volume 9.4 9.5-13.5 fL Neutrophils Percent Auto 60.4 43.0-75.0 % Lymphocytes Percent Auto 23.9 20.5-60.0 % Monocytes Percent Auto 11.0 1.7-12.0 % Eosinophils Percent Auto 4.0 0.9-7.0 % Basophils Percent Auto 0.5 0.2-2.0 % Immature Granulocytes Pct Auto 0.2 0.0-0.5 % Neutrophils Absolute Auto 3.4 1.4-6.5 10 3/uL Lymphocytes Absolute Auto 1.3 1.2-3.8 10 3/uL Monocytes Absolute Auto 0.6 0.3-0.8 10 3/uL Eosinophils Absolute Auto 0.2 0.0-0.7 10 3/uL Basophils Absolute Auto 0.0 0.0-0.1 10 3/uL Immature Granulocytes Abs Auto 0.01 0.00-0.03 10 3/uL Performing Lab: see note - [facility] LB PROF CHEM 8 (BAS METB) Reviewed date:03/15/2025 01:17:47 PM Interpretation: Performing Lab: Notes/Report: [facility] , Sodium 145 136-145 mmol/L Potassium 4.1 3.5-5.1 mmol/L Chloride 108 98-107 mmol/L Carbon Dioxide 28.3 21.0-32.0 mmol/L Anion Gap 12.8 Glucose 139 74-106 mg/dL Blood Urea Nitrogen 25.0 7.0-18.0 mg/dL Creatinine 1.35 0.70-1.30 mg/dL Estimated GFR ( Anna >60 >=60 mL/min/1.73m 2 Estimated GFR (Non- Diana 53 >=60 mL/min/1.73m 2 BUN Creatinine Ratio 18.5 Calcium 9.2 8.5-10.1 mg/dL Performing Lab: see note - [facility] LB ECG 12 lead Reviewed date:03/15/2025 04:45:11 PM Interpretation: Performing Lab: Notes/Report: Source Facility: [facility] [place] [address] [place] [address] Electrocardiograph Report Signed Patient: HECTOR GASPAR MR#: [id number] : 1960 Acct:[id number] Age/Sex: 64 / M ADM Date: 03/14/25 Loc: ER Attending Dr: Ordering Physician: Sarita Russell M.D. Date of Service: 03/14/25 Procedure(s): ECG 12 lead Accession Number(s): [id number] cc: [facility] Test Date: 2025-03-14 Pat Name: HECTOR GASPAR Department: Room: - Gender: Male Delinquency Counselor: : 1960 Requested By: 1030 Order Number: [id number] Reading MD: MEGAN SO Measurements Intervals [place] Rate: 83 P: -30 [place]: 146 QRS: 60 QRSD: 94 T: 76 QT: 366 QTc: 406 Interpretive Statements 1100 Sinus rhythm 1474 with frequent supraventricular premature complexes 3514 Cannot rule out lateral myocardial infarction, age undetermined 74645 Possible inferior myocardial infarction with posterior extension, age undetermined 9150 abnormal ECG Compared to ECG 11/25/2024 15:18:19 No significant changes Electronically Signed On 03-15-2025 16:38:36 EDT by MEGAN SO Dictated By: Megan So M.D. Signed By: 03/15/25 1639 DD/ 2305 TD/TT: [employer]: [place] [address] Electrocardiograph Report Signed Patient: HECTOR GASPAR MR#: [id number] : 1960 Acct:[id number] Age/Sex: 64 / M ADM Date: 03/14/25 Loc: ER Attending Dr: Ordering Physician: Sarita Russell M.D. Date of Service: 03/14/25 Procedure(s): ECG 12 lead Accession Number(s): [id number] cc: [facility] Test Date: 2025-03-14 Pat Name: HECTOR GASPAR Department: 46 Room: - Gender: Male Delinquency Counselor: : 1960 Requ ested By: 1030 Order Number: [id number] Reading MD: MEGAN SO Measurements Intervals [place] Rate: 83 P: -30 [place]: 146 QRS: 60 QRSD: 94 T: 76 QT: 366 QTc: 406 Interpretive Statements 1100 Sinus rhythm 1474 with frequent supraventricular premature complexes 3514 Cannot rule out lateral myocardial infarction, age undetermined 96188 Possible infer ior myocardial infarction with posterior extension, age undetermined 9150 abnormal ECG Compared to ECG 11/25/2024 15:18:19 No significant changes Electronically Oanh d On 03-15-2025 16:38:36 EDT by MEGAN SO Dictated By: Megan So M.D. Signed By: 03/15/25 1636 DD/ 3109 TD/TT: [employer]: XR chest 1V Reviewed date:03/15/2025 01:17:47 PM Interpretation: Performing Lab: Notes/Report: Source Facility: [place] [address] XRay Report Signed Patient: HECTOR GASPAR MR#: [id number] : 1960 Acct:[id number] Age/Sex: 64 / M ADM Date: 03/14/25 Loc: ER Attending Dr: Ordering Physician: Sarita Russell M.D. Date of Service: 03/14/25 Procedure(s): XR chest 1V Accession Number(s): [id number] cc: Seymour Davison M.D.; Sarita Russell M.D. [place] [address] Patient Name: HECTOR GASPAR MRN: [id number] date: 1960 Sex: M Assigned Patient Location: ER Current Patient Location: ED.MAIN Accession/Order Number: [id number] Exam Date: 03/14/2025 23:12 Report Date: 03/14/2025 23:13 At the request of: SARITA RUSSELL MD Procedure: XR chest 1V Plain film chest Single view HISTORY: Cough for one week COMPARISON: 11/02/2024 FINDINGS: SUPPORT DEVICES: None POSTSURGICAL CHANGES: None HEART: Within normal limits PULMONARY MEG: Within normal limits MEDIASTINUM: Unremarkable LUNGS AND PLEURA: No acute lung process, pleural effusion or pneumothorax identified. Minor interstitial changes BONY STRUCTURES: Intact ADDITIONAL FINDINGS None XR/XR chest 1V IMPRESSION: No acute process. Impression dictated by: Edilson Grant M.D. 03/14/2025 11:13 PM Dictation Location: [place] [address] Electronically authenticated by: [id number] Y Date: 03/14/2025 23:13 Dictated By: Edilson Grant D.O. Signed By: 03/14/252314 DD/ 12 TD/TT: [employer]er: [place] [address] XRay Report Signed Patient: HECTOR GASPAR MR#: [id number] : 1960 Acct:[id number] Age/Sex: 64 / M ADM Date: 03/14/25 Loc: ER Attending Dr: Ordering Physician: Sarita Russell M.D. Date of Service: 03/14/25 Procedure(s): XR chest 1V Accession Number(s): [id number] cc: Seymour Davison M.D. ; Sarita Russell M.D. [place] [address] Patient Name: HECTOR GASPAR MRN: [id number] date: 1960 Sex: M Assigned Patient Location: ER Current Patient Loca tion: ED.MAIN Accession/Order Numb er: [id number] Exam Date: 03/14/2025 23:12 Report Date: 03/14/2025 23:13 At the request of: SARITA RUSSELL MD Procedure: XR chest 1V Plain film chest Sin gle view HISTORY: Cough for o ne week COMPARISON: 11/02/2024 FINDINGS: SUPPORT DEVICES: None POSTSURGICAL CHANGES : None HEART: Within normal limits PULMONARY MEG: With in normal limits MEDIASTINUM: Unremarkable LUNGS AND PLEURA: No acute lung process, pleural effusion or pneumothorax identified. Minor interstitial changes BONY STRUCTURES: Intact ADDITIONAL FINDINGS None X R/XR chest 1V IMPRESSION: No acute process. Impression dictated by: Edilson Grant M.D. 03/14/2025 11:13 PM Dictation Location: [place] [address] Electronically authenticated by: [id number] Y Date: 03/14/2025 23:13 Dictated By: Soto Grant D.O. Signed By: 03/14/252314 DD/ 12 TD/TT: [employer]: Troponin I High Sensitivity Reviewed date:11/26/2024 12:35:42 PM Interpretation: Performing Lab: Notes/Report: [facility] , Troponin I High Sensitivity 6.1 4.0-76.1 pg/mL REFERENCE LIMIT (URL) OF TROPONIN, DEFINED THE 99TH WITH OTHER DIAGNOSTIC AND CLINICAL INFORMATION. CUT-OFF POINTS HAVE BEEN ESTABLISHED BASED ON THE FOURTH PERCENTILE OF cTnI DISTRIBUTION IN A REFERENCE POPULATION, NOTE: HIGH-SENSITIVITY TROPONIN ASSAY IS NOT INTENDED TO BE HAS BEEN CONFIRMED THE DECISION THRESHOLD FOR OR USED IN ISOLATION BUT SHOULD BE INTERPRETED IN CONJUNCTION DIAGNOSIS. UNIVERSAL DEFINITION OF MYOCARDIAL INFARCTION. THE UPPER 99TH PERCENTILE = 76.2 PG/ML Performing Lab: see note ML - [facility] LB URINE MICROSCOPIC ONLY Reviewed date:11/26/2024 12:35:42 PM Interpretation: Performing Lab: Notes/Report: [facility] , WBC Urine 0-2 NONE SEEN #/HPF RBC Urine 5-10 0-2 #/HPF Bacteria Urine SMALL NONE SEEN #/HPF Mucus Urine SMALL NONE SEEN Squamous Epithelial Cell Urine FEW NONE/RARE #/LPF Crystals Seen? None Seen None Seen #/HPF Cast Seen? NONE SEEN NONE SEEN #/LPF Urine Culture Indicated YES-[facility] [place] Performing Lab: see note ML - [facility] LB PROF 14(COMP METB) Reviewed date:11/26/2024 12:35:42 PM Interpretation: Performing Lab: Notes/Report: [facility] , Sodium 141 136-145 mmol/L Potassium 4.4 3.5-5.1 mmol/L Chloride 102 98-107 mmol/L Carbon Dioxide 28.7 21.0-32.0 mmol/L Anion Gap 14.7 Glucose 116 74-106 mg/dL Blood Urea Nitrogen 21.0 7.0-18.0 mg/dL Creatinine 1.39 0.70-1.30 mg/dL Estimated GFR ( Anna >60 >=60 mL/min/1.73m 2 Estimated GFR (Non- Diana 51 >=60 mL/min/1.73m 2 BUN Creatinine Ratio 15.1 Calcium 9.4 8.5-10.1 mg/dL Bilirubin Total 0.4 0.2-1.0 mg/dL Aspartate Amino Transferase 26 15-37 U/L Alanine Aminotransferase 57 16-63 U/L Alkaline Phosphatase 84 46-116 U/L Total Protein 7.7 6.4-8.2 g/dL Albumin Level 2.8 3.4-5.0 g/dL Globulin 4.9 Albumin Globulin Ratio 0.6 Performing Lab: see note ML - [facility] LB PROF 14(COMP METB) Reviewed date:11/23/2024 03:46:56 PM Interpretation: Performing Lab: Notes/Report: [facility] , Sodium 141 136-145 mmol/L Potassium 4.3 3.5-5.1 mmol/L Chloride 102 98-107 mmol/L Carbon Dioxide 31.3 21.0-32.0 mmol/L Anion Gap 12.0 Glucose 113 74-106 mg/dL Blood Urea Nitrogen 22.0 7.0-18.0 mg/dL Creatinine 1.42 0.70-1.30 mg/dL Estimated GFR ( Anna >60 >=60 mL/min/1.73m 2 Estimated GFR (Non- Diana 50 >=60 mL/min/1.73m 2 BUN Creatinine Ratio 15.5 Calcium 9.2 8.5-10.1 mg/dL Bilirubin Total 0.4 0.2-1.0 mg/dL Aspartate Amino Transferase 26 15-37 U/L Alanine Aminotransferase 59 16-63 U/L Alkaline Phosphatase 88 46-116 U/L Total Protein 7.6 6.4-8.2 g/dL Albumin Level 2.9 3.4-5.0 g/dL Globulin 4.7 Albumin Globulin Ratio 0.6 Performing Lab: see note ML - [facility] LB CBC AUTO DIFF Reviewed date:11/23/2024 03:18:37 PM Interpretation: Performing Lab: Notes/Report: [facility] , White Blood Count 8.5 4.0-11.0 10 3/uL Red Blood Count 4.07 4.70-6.10 10 6/uL Hemoglobin 12.7 14.0-18.0 g/dL Hematocrit 37.2 42.0-54.0 % Mean Corpuscular Volume 91.4 80.0-94.0 fL Mean Corpuscular Hemoglobin 31.2 25.9-34.0 pg Mean Corpuscular HGB Conc 34.1 29.9-35.2 g/dL Red Cell Distribution Width 12.4 11.0-15.0 % Platelet Count 328 150-450 10 3/uL Mean Platelet Volume 8.8 9.5-13.5 fL Neutrophils Percent Auto 65.7 43.0-75.0 % Lymphocytes Percent Auto 16.4 20.5-60.0 % Monocytes Percent Auto 13.2 1.7-12.0 % Eosinophils Percent Auto 3.5 0.9-7.0 % Basophils Percent Auto 0.4 0.2-2.0 % Immature Granulocytes Pct Auto 0.8 0.0-0.5 % Neutrophils Absolute Auto 5.6 1.4-6.5 10 3/uL Lymphocytes Absolute Auto 1.4 1.2-3.8 10 3/uL Monocytes Absolute Auto 1.1 0.3-0.8 10 3/uL Eosinophils Absolute Auto 0.3 0.0-0.7 10 3/uL Basophils Absolute Auto 0.0 0.0-0.1 10 3/uL Immature Granulocytes Abs Auto 0.07 0.00-0.03 10 3/uL Performing Lab: see note - [facility] LB PROF CHEM 8 (BAS METB) Reviewed date:11/16/2024 07:13:45 PM Interpretation: Performing Lab: Notes/Report: [facility] , Sodium 141 136-145 mmol/L Potassium 3.9 3.5-5.1 mmol/L Chloride 104 98-107 mmol/L Carbon Dioxide 30.2 21.0-32.0 mmol/L Anion Gap 10.7 Glucose 126 74-106 mg/dL Blood Urea Nitrogen 19.0 7.0-18.0 mg/dL Creatinine 1.32 0.70-1.30 mg/dL Estimated GFR ( Anna >60 >=60 mL/min/1.73m 2 Estimated GFR (Non- Diana 55 >=60 mL/min/1.73m 2 BUN Creatinine Ratio 14.4 Calcium 8.9 8.5-10.1 mg/dL Performing Lab: see note - [facility] LB CBC AUTO DIFF Reviewed date:11/16/2024 07:13:45 PM Interpretation: Performing Lab: Notes/Report: [facility] , White Blood Count 9.1 4.0-11.0 10 3/uL Red Blood Count 4.08 4.70-6.10 10 6/uL Hemoglobin 12.7 14.0-18.0 g/dL Hematocrit 37.6 42.0-54.0 % Mean Corpuscular Volume 92.2 80.0-94.0 fL Mean Corpuscular Hemoglobin 31.1 25.9-34.0 pg Mean Corpuscular HGB Conc 33.8 29.9-35.2 g/dL Red Cell Distribution Width 13.2 11.0-15.0 % Platelet Count 157 150-450 10 3/uL Mean Platelet Volume 9.5 9.5-13.5 fL Neutrophils Percent Auto 70.4 43.0-75.0 % Lymphocytes Percent Auto 11.9 20.5-60.0 % Monocytes Percent Auto 15.0 1.7-12.0 % Eosinophils Percent Auto 2.0 0.9-7.0 % Basophils Percent Auto 0.4 0.2-2.0 % Immature Granulocytes Pct Auto 0.3 0.0-0.5 % Neutrophils Absolute Auto 6.4 1.4-6.5 10 3/uL Lymphocytes Absolute Auto 1.1 1.2-3.8 10 3/uL Monocytes Absolute Auto 1.4 0.3-0.8 10 3/uL Eosinophils Absolute Auto 0.2 0.0-0.7 10 3/uL Basophils Absolute Auto 0.0 0.0-0.1 10 3/uL Immature Granulocytes Abs Auto 0.03 0.00-0.03 10 3/uL Performing Lab: see note ML - [facility] LB XR chest 2V Reviewed date:11/02/2024 08:22:02 PM Interpretation: Performing Lab: Notes/Report: Source Facility: [place] [address] [place] [address] XRay Report Signed Patient: HECTOR GASPAR MR#: [id number] : 1960 Acct:[id number] Age/Sex: 64 / M ADM Date: 11/02/24 Loc: RAD Attending Dr: DELL ARMIJO Ordering Physician: DELL ARMIJO Date of Service: 11/02/24 Procedure(s): XR chest 2V Accession Number(s): [id number] cc: Seymour Davison M.D.; DELL ARMIJO The [address] [id number] Patient Name: HECTOR GASPAR MRN: [id number] date: 1960 Sex: M Assigned Patient Location: RAD Current Patient Location: [facility] Accession/Order Number: [id number] Exam Date: 11/02/2024 15:17 Report Date: 11/02/2024 15:19 At the request of: DELL ARMIJO Procedure: XR chest 2V Chest 2 views CLINICAL HISTORY: Lung Mass COMPARISON: Chest 09/27/2024 FINDINGS: Heart is normal in size. Masslike consolidation superior segment right lower lobe is once again demonstrated as seen on the lateral view. No new consolidation pneumothorax pleural effusion or free air. XR/XR chest 2V IMPRESSION: MASSLIKE CONSOLIDATION SUPERIOR SEGMENT RIGHT LOWER LOBE SIMILAR TO THE PRIOR STUDY. THIS IS CONFIRMED ON A CT LUNG SCREEN STUDY OF 08/11/2024. Impression dictated by: Parrish Layton Jr., D.O.11/02/2024 3:19 PM Dictation Location: [place] [address] Electronically authenticated by: [id number] Y Date: 11/02/2024 15:19 Dictated By: Parrish Layton M.D. Signed By: 11/02/24 1521 DD/ 1519 TD/TT: [employer]: [place] [address] XRay Report Signed Patient: HECTOR GASPAR MR#: [id number] : 1960 Acct:[id number] Age/Sex: 64 / M ADM Date: 11/02/24 Loc: RAD Attending Dr: MITCHELL ARMIJO Ordering Physician: DELL ARMIJO Date of Service: 11/02/24 Procedure(s): XR chest 2V Accession Number(s): [id number] cc: Seymour Davison M.D. ; DELL ARMIJO [address] [id number] Patient Name: HECTOR GASPAR MRN: [id number] date: 1960 Sex: M Assigned Patient Location: RAD Current Patient Loca tion: RAD Accession/Order Numb er: [id number] Exam Date: 11/02/2024 15:17 Report Date: 11/02/2024 15:19 At the request of: DELL ARMIJO Procedure: XR chest 2V Chest 2 views CLINICAL HISTORY: Sarah ng Mass COMPARISON: Chest 09/27/2024 FINDINGS: Heart is normal in s ize. Masslike consolidation superior segment right lower lobe is once again demonstrated as seen on the lateral view. No new consolidation pneumothorax pleural effusion or free air. X R/XR chest 2V IMPRESSION: MASSLIKE CONSOLIDATI ON SUPERIOR SEGMENT RIGHT LOWER LOBE SIMILAR TO THE PRIOR STUDY. THIS IS CONFI RMED ON A CT LUNG SCREEN STUDY OF 08/11/2024. Impression dictated by: Parrish Layton Jr., D.O.11/02/2024 3:19 PM Dictation Location: [place] [address] Electronically authenticated by: [id number] Y Date: 11/02/2024 15:19 Dictated By: Parrish Layton M.D. Signed By: 11/02/24 1521 DD/ 1519 TD/TT: [employer]: XR chest 1V Reviewed date:09/04/2024 07:21:26 PM Interpretation: Performing Lab: Notes/Report: Source Facility: [place] [address] [place] [address] XRay Report Signed Patient: HECTOR GASPAR MR#: [id number] : 1960 Acct:[id number] Age/Sex: 64 / M ADM Date: 09/03/24 Loc: ER Attending Dr: Ordering Physician: Sarita Russell M.D. Date of Service: 09/03/24 Procedure(s): XR chest 1V Accession Number(s): [id number] cc: Seymour Davison M.D.; Sarita Russell M.D. [place] [address] Patient Name: HECTOR GASPAR MRN: [id number] date: 1960 Sex: M Assigned Patient Location: ER Current Patient Location: ER Accession/Order Number: [id number] Exam Date: 09/03/2024 22:33 Report Date: 09/03/2024 23:18 At the request of: SARITA RUSSELL Procedure: XR chest 1V CXR HISTORY: Shortness of breath COMPARISON: 08/10/2024 chest x-ray TECHNIQUE: 1 view chest submitted for review. FINDINGS: The lungs are adequately expanded without evidence of acute infiltrate or effusion. The cardiac silhouette measures within normal. Pulmonary vascularity is unremarkable. Osseous structures do not demonstrate any acute abnormality. XR/XR chest 1V IMPRESSION: No plain film evidence for acute cardiopulmonary disease. Electronically authenticated by: ANJU DOMINGUEZ Date: 09/03/2024 23:18 Dictated By: Anju Dominguez M.D. Signed By: 09/03/242319 DD/ 17 TD/TT: [employer]er: [place] [address] XRay Report Signed Patient: HECTOR GASPAR MR#: [id number] : 1960 Acct:[id number] Age/Sex: 64 / M ADM Date: 09/03/24 Loc: ER Attending Dr: Ordering Physician: Sarita Russell M.D. Date of Service: 09/03/24 Procedure(s): XR chest 1V Accession Number(s): [id number] cc: Seymour Davison M.D. ; Sarita Russell M.D. [place] [id number] Patient Name: HECTOR GASPAR MRN: [id number] date: 1960 Sex: M Assigned Patient Location: ER Current Patient Loca tion: ER Accession/Order Numb er: [id number] Exam Date: 09/03/2024 22:33 Report Date: 09/03/2024 23:18 At the request of: SARITA RUSSELL Procedure: XR chest 1V CXR HISTORY: Shortness of breath COMPARISON: 08/10/2024 chest x-ray TECHNIQUE: 1 view chest submitt ed for review. FINDINGS: The lungs are adequa tely expanded without evidence of acute infiltrate or effusion. The cardia c silhouette measures within normal. Pulmonary vascularity is unremarkable. Oss eous structures do not demonstrate any acute abnormality. X R/XR chest 1V IMPRESSION: No plain film eviden ce for acute cardiopulmonary disease. Electronically authenticated by: ANJU DOMINGUEZ Date: 09/03/2024 23:18 Dictated By: Anju Dominguez M.D. Signed By: 09/03/242319 DD/ 17 TD/TT: [employer]: ECG 12 lead Reviewed date:09/04/2024 07:21:26 PM Interpretation: Performing Lab: Notes/Report: Source Facility: [place] [address] [place] [address] Electrocardiograph Report Signed Patient: HECTOR GASPAR MR#: [id number] : 1960 Acct:[id number] Age/Sex: 64 / M ADM Date: 09/03/24 Loc: ER Attending Dr: Ordering Physician: Sarita Russell M.D. Date of Service: 09/03/24 Procedure(s): ECG 12 lead Accession Number(s): [id number] cc: [facility] Test Date: 2024-09-03 Pat Name: HECTOR GASPAR Department: Room: - Gender: Male Delinquency Counselor: : 1960 Requested By: SEYMOUR DAVISON Order Number: [id number] Reading MD: SEYMOUR DAVISON Measurements Intervals [place] Rate: 94 P: 36 [place]: 184 QRS: 14 QRSD: 90 T: 35 QT: 342 QTc: 393 Interpretive Statements 1100 Sinus rhythm 3324 Possible anterolateral myocardial infarction, age undetermined 3624 Possible inferior myocardial infarction, age undetermined 9150 abnormal ECG Compared to ECG 08/10/2024 19:41:51 No significant changes Electronically Signed On 09-04-2024 7:01:56 EST by SEYMOUR DAVISON Dictated By: Seymour Davison M.D. Signed By: 09/04/24 07 DD/ 24 TD/TT: [employer]er: [place] [address] Electrocardiograph Report Signed Patient: HECTOR GASPAR MR#: [id number] : 1960 Acct:[id number] Age/Sex: 64 / M ADM Date: 09/03/24 Loc: ER Attending Dr: Ordering Physician: Sarita Russell M.D. Date of Service: 09/03/24 Procedure(s): ECG 12 lead Accession Number(s): [id number] cc: [facility] Test Date: 2024-09-03 Pat Name: HECTOR GASPAR Department: 46 Room: - Gender: Male Delinquency Counselor: : 1960 Marielos estezachery By: SEYMOUR DAVISON Order Number: [id number] Reading MD: SEYMOUR DAVISON Measurements Intervals [place] Rate: 94 P: 36 [place]: 184 QRS: 14 QRSD: 90 T: 35 QT: 342 QTc: 393 Interpretive Statements 1100 Sinus rhythm 3324 Possible anterolateral myocardial infarction, age undetermined 3624 Possible inferi or myocardial infarction, age undetermined 9150 abnormal ECG Compared to ECG 08/10/2024 19:41:51 No significant changes Electronically Oanh d On 09-04-2024 7:01:56 EST by SEYMOUR DAVISON Dictated By: Giorgio Davison M.D. Signed By: 09/04/24701 DD/ 24 TD/TT: [employer]: PROF GRAZYNA Leigh ([facility]) Reviewed date:09/04/2024 07:21:26 PM Interpretation: Performing Lab: Notes/Report: [facility] , Sodium 141 136-145 mmol/L Potassium 4.8 3.5-5.1 mmol/L Chloride 104 98-107 mmol/L Carbon Dioxide 25.6 21.0-32.0 mmol/L Anion Gap 16.2 Glucose 183 74-106 mg/dL Blood Urea Nitrogen 23.0 7.0-18.0 mg/dL Creatinine 1.39 0.70-1.30 mg/dL Estimated GFR ( Anna >60 >=60 mL/min/1.73m 2 Estimated GFR (Non- Diana 51 >=60 mL/min/1.73m 2 BUN Creatinine Ratio 16.5 Calcium 9.2 8.5-10.1 mg/dL Performing Lab: see note ML - [facility] LB CBC AUTO DIFF Reviewed date:09/04/2024 07:21:26 PM Interpretation: Performing Lab: Notes/Report: [facility] , White Blood Count 6.1 4.0-11.0 10 3/uL Red Blood Count 4.61 4.70-6.10 10 6/uL Hemoglobin 14.2 14.0-18.0 g/dL Hematocrit 41.3 42.0-54.0 % Mean Corpuscular Volume 89.6 80.0-94.0 fL Mean Corpuscular Hemoglobin 30.8 25.9-34.0 pg Mean Corpuscular HGB Conc 34.4 29.9-35.2 g/dL Red Cell Distribution Width 13.2 11.0-15.0 % Platelet Count 238 150-450 10 3/uL Mean Platelet Volume 9.5 9.5-13.5 fL Neutrophils Percent Auto 71.4 43.0-75.0 % Lymphocytes Percent Auto 21.9 20.5-60.0 % Monocytes Percent Auto 5.1 1.7-12.0 % Eosinophils Percent Auto 0.8 0.9-7.0 % Basophils Percent Auto 0.3 0.2-2.0 % Immature Granulocytes Pct Auto 0.5 0.0-0.5 % Neutrophils Absolute Auto 4.3 1.4-6.5 10 3/uL Lymphocytes Absolute Auto 1.3 1.2-3.8 10 3/uL Monocytes Absolute Auto 0.3 0.3-0.8 10 3/uL Eosinophils Absolute Auto 0.1 0.0-0.7 10 3/uL Basophils Absolute Auto 0.0 0.0-0.1 10 3/uL Immature Granulocytes Abs Auto 0.03 0.00-0.03 10 3/uL Performing Lab: see note ML - [facility] LB XR chest 1V Reviewed date:08/13/2024 02:45:53 PM Interpretation: Performing Lab: Notes/Report: Source Facility: [facility] [place] [address] [place] [address] XRay Report Signed Patient: HECTOR GASPAR MR#: [id number] : 1960 Acct:[id number] Age/Sex: 64 / M ADM Date: 08/10/24 Loc: ER Attending Dr: Ordering Physician: Lennie Mccoy Date of Service: 08/10/24 Procedure(s): XR chest 1V Accession Number(s): [id number] cc: Seymour Davison M.D.; Lennie Mccoy [place] [id number] Patient Name: HECTOR GASPAR MRN: [id number] date: 1960 Sex: M Assigned Patient Location: ER Current Patient Location: ED.MAIN Accession/Order Number: [id number] Exam Date: 08/10/2024 20:06 Report Date: 08/10/2024 20:34 At the request of: LENNIE MCCOY Procedure: XR chest 1V EXAMINATION: XR chest 1V HISTORY: Shortness of breath COMPARISON: XR chest 05/07/2024 FINDINGS: LUNGS: Mild opacity within lateral left lung base obscuring the heart and diaphragm margin. Trace amount of stranding. VASCULATURE: No increased pulmonary vasculature. PLEURA: No pneumothorax, effusion, or pleural thickening. CARDIAC: No cardiomegaly or cardiac silhouette abnormality. MEDIASTINUM: No visible mass or adenopathy. BONES: No fracture or visible bone lesion. OTHER: Negative. XR/XR chest 1V IMPRESSION: 1. Mild lingular infiltrates; new since prior study. Electronically authenticated by: DWIGHT HART Date: 08/10/2024 20:34 Dictated By: Dwight Hart M.D. Signed By: 08/10/242036 DD/ 33 TD/TT: [employer]er: [place] [address] XRay Report Signed Patient: HECTOR GASPAR MR#: [id number] : 1960 Acct:[id number] Age/Sex: 64 / M ADM Date: 08/10/24 Loc: ER Attending Dr: Ordering Physician: Lennie Mccoy Date of Service: 08/10/24 Procedure(s): XR chest 1V Accession Number(s): [id number] cc: Seymour Davison M.D. ; Lennie Mccoy [place] [id number] Patient Name: HECTOR GASPAR MRN: [id number] date: 1960 Sex: M Assigned Patient Location: ER Current Patient Loca tion: ED.MAIN Accession/Order Numb er: [id number] Exam Date: 08/10/2024 20:06 Report Date: 08/10/2024 20:34 At the request of: LENNIE MCCOY Procedure: XR chest 1V EXAMINATION: XR chest 1V HISTORY: Shortness o f breath COMPARISON: XR chest 05/07/2024 FINDINGS: LUNGS: Mild opacity within lateral left lung base obscuring the heart and diaphragm margin. Tr ching amount of stranding. VASCULATURE: No incr eased pulmonary vasculature. PLEURA: No pneumotho rax, effusion, or pleural thickening. CARDIAC: No cardiome rik or cardiac silhouette abnormality. MEDIASTINUM: No visi ble mass or adenopathy. BONES: No fracture o r visible bone lesion. OTHER: Negative. X R/XR chest 1V IMPRESSION: 1. Mild lingular infiltrates; new since prior study. Electronically authenticated by: DWIGHT HART Date: 08/10/2024 20:34 Dictated By: Dwight Hart M.D. Signed By: 08/10/242036 DD/ 33 TD/TT: [employer]: SARS-CoV-2 Ag* Reviewed date:08/13/2024 02:45:53 PM Interpretation: Performing Lab: Notes/Report: [facility] , SARS-CoV-2 Ag NEGATIVE NEGATIVE emergency use of in vitro diagnostic tests for detection (EUA) for use by authorized laboratories certified under authorized by the FDA under an Emergency Use Authorization viruses or pathogens. The emergency use of this test is the detection of proteins from SARS-CoV-2, not for any other CLIA that meet the requirements to perform moderate or high Act, 21 U.S.C. 360bbb-3(b)(1), unless the declaration is circumstances exist justifying the authorization of and/or diagnosis of Covid-19 under section 564(b)(1) of the authorized for the duration of the declaration that complexity testing. This test has been authorized only for This test has not been FDA cleared or approved, but has been terminated or authorization is revoked sooner. Performing Lab: see note ML - [facility] Troponin I High Sensitivity Reviewed date:08/13/2024 02:45:53 PM Interpretation: Performing Lab: Notes/Report: [facility] , Troponin I High Sensitivity 11.9 4.0-76.1 pg/mL REFERENCE LIMIT (URL) OF TROPONIN, DEFINED THE 99TH 99TH PERCENTILE = 76.2 PG/ML HAS BEEN CONFIRMED THE DECISION THRESHOLD FOR OR NOTE: HIGH-SENSITIVITY TROPONIN ASSAY IS NOT INTENDED TO BE WITH OTHER DIAGNOSTIC AND CLINICAL INFORMATION. DIAGNOSIS. UNIVERSAL DEFINITION OF MYOCARDIAL INFARCTION. THE UPPER USED IN ISOLATION BUT SHOULD BE INTERPRETED IN CONJUNCTION CUT-OFF POINTS HAVE BEEN ESTABLISHED BASED ON THE FOURTH PERCENTILE OF cTnI DISTRIBUTION IN A REFERENCE POPULATION, Performing Lab: see note ML - [facility] Prothrombin Time INR Reviewed date:08/13/2024 02:45:53 PM Interpretation: Performing Lab: Notes/Report: [facility] , Prothrombin Time 10.1 9.0-11.6 sec INR 0.95 2.5-3.5 RECURRENT THROMBOSIS DESIRED INR: 2.5-3.5 FOR PROSTHETIC HEART VALVE REPLACEMENT 2.0-3.0 CONDITIONS NOT LISTED BELOW Performing Lab: see note - [facility] LB PROF 14(COMP METB) Reviewed date:08/13/2024 02:45:53 PM Interpretation: Performing Lab: Notes/Report: [facility] , Sodium 141 136-145 mmol/L Potassium 4.2 3.5-5.1 mmol/L Chloride 104 98-107 mmol/L Carbon Dioxide 28.8 21.0-32.0 mmol/L Anion Gap 12.4 Glucose 102 74-106 mg/dL Blood Urea Nitrogen 21.0 7.0-18.0 mg/dL Creatinine 1.33 0.70-1.30 mg/dL Estimated GFR ( Anna >60 >=60 mL/min/1.73m 2 Estimated GFR (Non- Diana 54 >=60 mL/min/1.73m 2 BUN Creatinine Ratio 15.8 Calcium 8.6 8.5-10.1 mg/dL Bilirubin Total 0.4 0.2-1.0 mg/dL Aspartate Amino Transferase 19 15-37 U/L Alanine Aminotransferase 35 16-63 U/L Alkaline Phosphatase 80 46-116 U/L Total Protein 6.9 6.4-8.2 g/dL Albumin Level 3.3 3.4-5.0 g/dL Globulin 3.6 Albumin Globulin Ratio 0.9 Performing Lab: see note ML - [facility] LB LACTATE or LACTIC ACID Reviewed date:08/13/2024 02:45:53 PM Interpretation: Performing Lab: Notes/Report: [facility] , Lactate/Lactic Acid 0.7 0.4-2.0 mmol/L Performing Lab: see note ML - [facility] LB INFLUENZA A AND B AG Reviewed date:08/13/2024 02:45:53 PM Interpretation: Performing Lab: Notes/Report: [facility] , Influenza Virus A Antigen Negative Negative for Flu A protein antigen. Infection due to Flu A below the detection limit of the test. cannot be ruled out. Flu A antigen in the sample may be Influenza Virus B Antigen Negative Negative for Flu B protein antigen. Infection due to Flu B below the detection limit of the test. cannot be ruled out. Flu B antigen in the sample may be Performing Lab: see note ML - [facility] LB CBC AUTO DIFF Reviewed date:08/13/2024 02:45:53 PM Interpretation: Performing Lab: Notes/Report: [facility] , White Blood Count 5.6 4.0-11.0 10 3/uL Red Blood Count 4.40 4.70-6.10 10 6/uL Hemoglobin 13.4 14.0-18.0 g/dL Hematocrit 39.4 42.0-54.0 % Mean Corpuscular Volume 89.5 80.0-94.0 fL Mean Corpuscular Hemoglobin 30.5 25.9-34.0 pg Mean Corpuscular HGB Conc 34.0 29.9-35.2 g/dL Red Cell Distribution Width 12.5 11.0-15.0 % Platelet Count 196 150-450 10 3/uL Mean Platelet Volume 9.4 9.5-13.5 fL Neutrophils Percent Auto 52.3 43.0-75.0 % Lymphocytes Percent Auto 31.5 20.5-60.0 % Monocytes Percent Auto 11.5 1.7-12.0 % Eosinophils Percent Auto 3.8 0.9-7.0 % Basophils Percent Auto 0.5 0.2-2.0 % Immature Granulocytes Pct Auto 0.4 0.0-0.5 % Neutrophils Absolute Auto 2.9 1.4-6.5 10 3/uL Lymphocytes Absolute Auto 1.8 1.2-3.8 10 3/uL Monocytes Absolute Auto 0.6 0.3-0.8 10 3/uL Eosinophils Absolute Auto 0.2 0.0-0.7 10 3/uL Basophils Absolute Auto 0.0 0.0-0.1 10 3/uL Immature Granulocytes Abs Auto 0.02 0.00-0.03 10 3/uL Performing Lab: see note ML - [facility] LB BNP Reviewed date:08/13/2024 02:45:53 PM Interpretation: Performing Lab: Notes/Report: [facility] , NT Pro B Type Natriuretic Pept 95.0 <=900.0 pg/mL Performing Lab: see note ML - [facility] LB TSH Reviewed date:07/20/2024 08:06:44 PM Interpretation: Performing Lab: Notes/Report: [facility] , Thyroid Stimulating Hormone 3.095 0.358-3.740 uIU/mL Performing Lab: see note ML - [facility] LB T4 Reviewed date:07/20/2024 08:06:44 PM Interpretation: Performing Lab: Notes/Report: [facility] , T4 Thyroxine 10.60 4.50-12.10 ug/dL Performing Lab: see note ML - [facility] LB PSA SCREENING Reviewed date:07/20/2024 08:06:44 PM Interpretation: Performing Lab: Notes/Report: [facility] , Prostate Specific Antigen Scrn 0.88 <=4.00 ng/mL Performing Lab: see note - [facility] LB PROF 14(COMP METB) Reviewed date:07/20/2024 08:06:44 PM Interpretation: Performing Lab: Notes/Report: [facility] , Sodium 144 136-145 mmol/L Potassium 4.3 3.5-5.1 mmol/L Chloride 107 98-107 mmol/L Carbon Dioxide 28.6 21.0-32.0 mmol/L Anion Gap 12.7 Glucose 101 74-106 mg/dL Blood Urea Nitrogen 21.0 7.0-18.0 mg/dL Creatinine 1.16 0.70-1.30 mg/dL Estimated GFR ( Anna >60 >=60 mL/min/1.73m 2 Estimated GFR (Non- Diana >60 >=60 mL/min/1.73m 2 BUN Creatinine Ratio 18.1 Calcium 9.0 8.5-10.1 mg/dL Bilirubin Total 0.4 0.2-1.0 mg/dL Aspartate Amino Transferase 18 15-37 U/L Alanine Aminotransferase 34 16-63 U/L Alkaline Phosphatase 81 46-116 U/L Total Protein 7.2 6.4-8.2 g/dL Albumin Level 3.6 3.4-5.0 g/dL Globulin 3.6 Albumin Globulin Ratio 1.0 Performing Lab: see note ML - [facility] LIPID PROFILE Reviewed date:07/20/2024 08:06:44 PM Interpretation: Performing Lab: Notes/Report: [facility] , Triglycerides 274 <=150 mg/dL Cholesterol 171 <=200 mg/dL HDL Cholesterol 44 40-60 mg/dL <40 mg/dl - HIGH CARDIOVASCULAR RISK > or =60 mg/dl - LOW CARDIOVASCULAR RISK LDL Cholesterol Calculated 73.0 <100 mg/dl OPTIMAL 100-129 mg/dl NEAR OR ABOVE OPTIMAL 130-159 mg/dl BORDERLINE HIGH 160-189 mg/dl HIGH >190 mg/dl VERY HIGH VLDL CHOLESTEROL 54.8 Chol HDL Ratio 3.9 7.1 - 11.0 MODERATE RISK 4.4 - 7.1 AVERAGE RISK >11.0 HIGH RISK 3.3 - 4.4 LOW RISK Performing Lab: see note ML - [facility] LB GLYCOHEMOGLOBIN A1C Reviewed date:07/20/2024 08:06:44 PM Interpretation: Performing Lab: Notes/Report: [facility] , Glycohemoglobin A1C 5.4 4.5-6.2 % ADA RECOMMENDED LIMIT 4.0 - 6.0 ACTION SUGGESTED ADA THERAPEUTIC TARGET < 7.0 > 7.0 Estimated Average Glucose 108 Performing Lab: see note - [facility] FREE T3 Reviewed date:07/20/2024 08:06:44 PM Interpretation: Performing Lab: Notes/Report: [facility] , Free T3 2.92 2.18-3.98 pg/mL Performing Lab: see note ML - [facility] LB ECG 12 lead Reviewed date:11/26/2024 12:35:42 PM Interpretation: Performing Lab: Notes/Report: Source Facility: [facility] [place] [address] [place] [address] Electrocardiograph Report Signed Patient: HECTOR GASPAR MR#: [id number] : 1960 Acct:[id number] Age/Sex: 64 / M ADM Date: 11/25/24 Loc: ER Attending Dr: Ordering Physician: Anjana Recio Date of Service: 11/25/24 Procedure(s): ECG 12 lead Accession Number(s): [id number] cc: [facility] Test Date: 2024-11-25 Pat Name: HECTOR GASPAR Department: Room: - 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 Measurements Intervals [place] Rate: 94 P: 47 [place]: 142 QRS: 34 QRSD: 88 T: 66 QT: 342 QTc: 394 Interpretive Statements 1100 Sinus rhythm 1475 with frequent supraventricular premature complexes in a pattern of bigeminy 3514 Cannot rule out lateral myocardial infarction, age undetermined 83689 Cannot rule out inferior myocardial infarction with posterior extension, age undetermined 9150 abnormal ECG Compared to ECG 09/03/2024 22:25:50 No significant changes Electronically Signed On 11-26-2024 7:37:04 EDT by CHEL LYNN M.D. 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 Measurements Intervals [place] Rate: 94 P: 47 [place]: 142 QRS: 34 QRSD: 88 T: 66 QT: 342 QTc: 394 Interpretive Statements 1100 Sinus rhythm 1475 with frequent supraventricular premature complexes in a pattern of bigeminy 3514 Cannot rule out lateral myocardial infarction, age undetermined 55327 Cannot rule ou t inferior myocardial infarction with posterior extension, age undetermined 9150 abnormal ECG Compared to ECG 09/03/2024 22:25:50 No significant changes Electronically Oanh d On 11-26-2024 7:37:04 EDT by CHEL LYNN M.D. Dictated By: CHEL LYNN Signed By: 11/26/24 0737 DD/ 1518 TD/TT: [employer]: Urine Culture - [facility] Reviewed date:11/28/2024 09:12:19 PM Interpretation: Performing Lab: Notes/Report: [facility] , Urine Culture - [facility] See Below For Report 10,000 colonies/ml mixed Urine Culture - [facility] Urine Culture - [facility] bacterial skin contaminants 10,000 colonies/ml mixed Urine Culture - [facility] Urine Culture - FR 2 Days 10,000 colonies/ml mixed Urine Culture - [facility] Urine Culture - FR 10,000 colonies/ml mixed Urine Culture - [facility] Urine Culture - FR Testing performed a t [facility] 10,000 colonies/ml mixed Urine Culture - [facility] Urine Culture - [facility] [address] [place] [address] 10,000 colonies/ml mixed Urine Culture - [facility] Performing Lab: see note ML - [facility] LB UA (CLEAN or CATCH) JEWEL BEARING TURNER or M ICRO IF IND. Reviewed date:11/26/2024 12:35:42 PM Interpretation: Performing Lab: Notes/Report: [facility] , Color Urine DK ORANGE YELLOW Clarity Urine CLEAR CLEAR Specific [place] Urine COLOR INTERFERENCE 1.005-1.025 pH Urine COLOR INTERFERENCE 5.0-9.0 Protein Urine COLOR INTERFERENCE NEG/TRACE mg/dL Glucose Urine UA COLOR INTERFERENCE NEGATIVE mg/dL Bilirubin Urine COLOR INTERFERENCE NEGATIVE Ketones Urine COLOR INTERFERENCE NEGATIVE mg/dL Blood Urine COLOR INTERFERENCE NEGATIVE Nitrite Urine COLOR INTERFERENCE NEGATIVE Urobilinogen Urine COLOR INTERFERENCE 0.2-1.0 EU/dL Leukocyte Esterase Urine COLOR INTERFERENCE NEGATIVE Urine Microscopic Indicated YES Performing Lab: see note ML - [facility] LB CBC AUTO DIFF Reviewed date:11/26/2024 12:35:42 PM Interpretation: Performing Lab: Notes/Report: [facility] , White Blood Count 7.8 4.0-11.0 10 3/uL Red Blood Count 4.11 4.70-6.10 10 6/uL Hemoglobin 12.4 14.0-18.0 g/dL Hematocrit 37.9 42.0-54.0 % Mean Corpuscular Volume 92.2 80.0-94.0 fL Mean Corpuscular Hemoglobin 30.2 25.9-34.0 pg Mean Corpuscular HGB Conc 32.7 29.9-35.2 g/dL Red Cell Distribution Width 12.4 11.0-15.0 % Platelet Count 378 150-450 10 3/uL Mean Platelet Volume 8.7 9.5-13.5 fL Neutrophils Percent Auto 68.6 43.0-75.0 % Lymphocytes Percent Auto 16.4 20.5-60.0 % Monocytes Percent Auto 10.0 1.7-12.0 % Eosinophils Percent Auto 3.8 0.9-7.0 % Basophils Percent Auto 0.8 0.2-2.0 % Immature Granulocytes Pct Auto 0.4 0.0-0.5 % Neutrophils Absolute Auto 5.4 1.4-6.5 10 3/uL Lymphocytes Absolute Auto 1.3 1.2-3.8 10 3/uL Monocytes Absolute Auto 0.8 0.3-0.8 10 3/uL Eosinophils Absolute Auto 0.3 0.0-0.7 10 3/uL Basophils Absolute Auto 0.1 0.0-0.1 10 3/uL Immature Granulocytes Abs Auto 0.03 0.00-0.03 10 3/uL Performing Lab: see note ML - [facility] LB UA RANDOM W or MICROSCOPIC Reviewed date:11/16/2024 07:13:45 PM Interpretation: Performing Lab: Notes/Report: [facility] , Color Urine LT. YELLOW YELLOW Clarity Urine CLEAR CLEAR Specific [place] Urine 1.020 1.005-1.025 pH Urine 6.0 5.0-9.0 Protein Urine NEGATIVE NEG/TRACE mg/dL Glucose Urine UA NEGATIVE NEGATIVE mg/dL Bilirubin Urine NEGATIVE NEGATIVE Ketones Urine NEGATIVE NEGATIVE mg/dL Blood Urine NEGATIVE NEGATIVE Nitrite Urine NEGATIVE NEGATIVE Urobilinogen Urine 0.2 0.2-1.0 EU/dL Leukocyte Esterase Urine NEGATIVE NEGATIVE WBC Urine 0-2 NONE SEEN #/HPF RBC Urine 0-2 0-2 #/HPF Bacteria Urine NONE SEEN NONE SEEN #/HPF Mucus Urine TRACE NONE SEEN Squamous Epithelial Cell Urine FEW NONE/RARE #/LPF Crystals Seen? None Seen None Seen #/HPF Cast Seen? NONE SEEN NONE SEEN #/LPF Performing Lab: see note ML - [facility] LB Reason For Referral Diagnosis 1 Lung mass (R91.8) Referral Organization [facility] Medicine Referring Provider First Name Clifford Referring Provider Last Name Tonystacey Referring Provider Speciality Family Med dipika Referred Provider Jordy Mcrae Referred Provider Specialty Pulmonary Kristyn person Referral Priority Routine Medications Medication SIG (Take, Route, Frequency, Duration) Notes Start Date End Date Status Doxycycline Monohydrate 100 MG 1 capsule Orally bid for 10 days 01/22/2025 Active Atorvastatin Calcium 80 MG 1 tablet Oral ly Once a day Active Cefdinir 300 MG 2 capsule Orally onc e a day for 10 days 01/22/2025 Active Aspirin Adult Low Dose 81 MG 1 tablet Orally Once a day for 90 days Active Clopidogrel Bisulfate 75 MG 1 tablet Ora lly Once a day Active Tylenol 325 MG 1 tablet as needed O rally every 6 hrs Active Albuterol Sulfate (2.5 MG/3ML) 0.083% 3 mL as needed Inhalation every 6 hrs 11/24/2024 Active Valsartan 40 MG TAKE 1 TABLET BY RENZO TH EVERY DAY for 90 days Active Dulera 100-5 MCG/ACT 2 puffs Inhalation bid for 30 days 10/18/2024 Active Ondansetron 4 MG 1 tablet on the tong ue and allow to dissolve Orally qid 11/20/2024 Active Hyoscyamine Sulfate 0.125 MG 1 tablet on the tongue and allow to dissolve as needed Orally QID As needed 08/11/2024 Active Social History Tobacco Use: Social History Observation Description Date Details (start date - stop date) Current Smoker 07/25/1979 - NA Tobacco Control (Standard) Question Answer Notes Tobacco use: Current smoker When did you start smoking? 07/25/1979 How often do you smoke cigarettes? Every day How many cigarettes a day do you smoke? 11-20 AUDIT-C (Standard) Question Answer Notes Did you have a drink containing alcohol in the p ast year? No Points 0 Interpretation Negative Problems Problem Type SNOMED Code ICD Code Onset Dates Problem Status W/U Status Risk Notes Problem Hypertension (91125465) Hypertension (I10) Active confirmed Problem COPD - Chronic obstructive pulmonary disease (62284788) COPD (chronic obstructive pulmonary disease) (J44.9) Active confirmed Problem Coronary artery disease (82748231) CAD (coronary artery disease) (I25.10) Active confirmed Problem Sebaceous cyst (822337759) Sebaceous cyst (L72.3) Active confirmed Problem Laboratory test result abnormal (933059863) Abnormal laboratory test (R89.9) Active confirmed Problem Gastroenteritis (27575448) Gastroenteritis (K52.9) Active confirmed Problem Hypercholesterolemia (50275410) Hypercholesterolemia (E78.00) Active confirmed Problem Abdominal aortic aneurysm 3.0 to 5.5 centimeters in male (disorder) (813821093318004) Abdominal aortic aneurysm (AAA) 3.0 cm to 5.5 cm in diameter in male (I71.40) Active confirmed Vital Signs Heart Rate 49 /min 11/23/2024 Temperature 100.9 degrees Fahrenheit 11/16/2024 Oximetry 96 % 11/23/2024 Blood pressure diastolic 82 mm Hg 01/22/2025 Height 66 in 01/22/2025 Blood pressure systolic 112 mm Hg 01/22/2025 Weight 239.2 lbs 01/22/2025 BMI 38.6 kg/m2 01/22/2025 Encounters Encounter Location Date Provider Diagnosis [facility] [address] [place] [address] 11/20/2024 Clifford Hoy Gastroenteritis K52. 9 and Hypercholesterolemia E78.00 [facility] [address] [place] [address] 11/23/2024 Clifford Jimenezy Pyelonephritis N12 [facility] [address] [place] [facility] [address] 07/14/2024 Clifford Hoy Hypertension I10 ; C AD (coronary artery disease) I25.10 ; Hypercholesterolemia E78.00 and Lung mass R91.8 [facility] [address] [place] [facility] [address] 08/31/2024 Clifford Hoy Acute non-recurrent sinusitis, unspecified location J01.90 and Nasal congestion R09.81 [facility] [address] [place] [facility] [place] [place] [address] 01/22/2025 Clifford Jimenezy Sebaceous cyst L72.3 [facility] [address] [place] [facility] [place] [address] 07/20/2024 Clifford stacey [facility] [address] [place] [facility] [address] 07/22/2024 Clifford Davison Abnormal laboratory test R89.9 [facility] [address] [place] [facility] [place] [address] 07/30/2024 Clifford Davison [facility] [address] [place] [place] [place] [address] 08/11/2024 Clifford stacey [facility] [address] [place] [facility] [address] 08/15/2024 Clifford Davison Lung mass R91.8 [facility] [address] [facility] [place] [address] 08/21/2024 Jordy Mcrae [facility] [address] [place] [facility] [address] 08/21/2024 Clifford Davison [facility] [address] [place] [facility] [address] 09/21/2024 Clifford stacey [facility] [address] [place] [facility] [address] 10/17/2024 Clifford Davison [facility] [address] [place] [facility] [place] [place] [address] 10/18/2024 Clifford [facility] [address] [place] [facility] [address] 11/16/2024 Clifford stacey [facility] [address] [place] [facility] [place] [place] [address] 11/17/2024 Clifford stacey [facility] [address] [place] [facility] [place] [place] [address] 11/23/2024 Clifford stacey [facility] [address] [place] [facility] [place] [place] [address] 11/24/2024 Clifford stacey [facility] [address] [place] [facility] [address] 11/08/2024 Clifford Davison Hypertension I10 Assessments Encounter Date Diagnosis (ICD Code) Assessment Notes Treatment Notes Treatment Clinical Notes Section Notes 07/14/2024 Hypertension (ICD-10 - I10) 07/14/2024 CAD (coronary artery disease) (ICD-10 - I25.10) 11/08/2024 Hypertension (ICD-10 - I10) 11/20/2024 Gastroenteritis (ICD -10 - K52.9) Get plenty of rest. Stay hydrated by sucking on ice chips or taking small sips of water. You can also try drinking clear soda, clear broths or noncaffeinated sports drinks. Stop eating solid foods for a few hours to let your stomach settle. East back into eating by eating bland, gzge-hz-cuejsa foods like crackers, toast, gelatin, bananas, rice and chicken. Try to avoid foods/substances including dairy products, caffeine, alcohol, nicotine and fatty or highly seasoned foods. Medications such as ibuprofen or tylenol can make your stomach more upset, so use sparingly if at all. Also avoid cmqi-iwt-cmpyfvx anti-diarrheal medications because it can make it harder for your body to eliminate the virus. 11/20/2024 Hypercholesterolemia (ICD-10 - E78.00) 11/23/2024 Pyelonephritis (ICD- 10 - N12) 01/22/2025 Sebaceous cyst (ICD- 10 - L72.3) needs treated for infected cyst 07/22/2024 Abnormal laboratory test (ICD-10 - R89.9) 08/15/2024 Lung mass (ICD-10 - R91.8) 08/31/2024 Acute non-recurrent sinusitis, unspecified location (ICD-10 - J01.90) Rest and drink more liquids, especially water. You may use a humidifier or vaporizer to help keep the drainage moist. Qmtb-zpr-fpvrzrm Nasal Saline may help the stuffy and runny nose. Use Ibuprofen and or Tylenol as needed for fever, chills, body aches or pain. Children 5 years old should not be given dbqh-bgt-rlqwbhq cough and cold medications such as guaifenesin and dextromethorphan. If you're over age 5, you may try ivup-cwb-pabxqwk cold medications such as guaifenesin and dextromethorphan, or multi-symptom cold reliever such as Dayquil to help reduce the symptoms. Antibiotics have been prescribed. You should take these until completed and follow the directions. Antibiotics can sometimes cause upset stomach, and in rare cases, serious allergic reactions or serious gastrointestinal problems. If you start having severe abdominal pain, severe vomiting, or bloody diarrhea, you should be reevaluated by your physician or urgent care immediately. Follow up with your Primary Care Provider or return to clinic if symptoms do not improve within 3-5 days 08/31/2024 Nasal congestion (ICD-10 - R09.81) 07/14/2024 Hypercholesterolemia (ICD-10 - E78.00) 07/14/2024 Lung mass (ICD-10 - R91.8) 11/23/2024 Other Recommended to rest and use a heating pad on the area. Take NSAIDs for pain as needed Plan Of Treatment Pending Test Test Name Order Date CMP (COMPLETE METABOLIC PANEL) 4 HEMOGLOBIN A1C (GLYCO) 07/14/2024 INSULIN, TOTAL 07/14/2024 LIPID PANEL (CHOL/TRIG/HDL/LDL) 07/14/20 24 CBC WITH DIFF 07/14/2024 PSA, TOTAL 07/14/2024 STOOL OCCULT BLOOD 07/14/2024 THYROID PANEL (T4/TSH/FREE T3) 4 CT CHEST LOW DOSE (LDCT) 07/14/2024 CMP (COMP MET L[place]) w/eGFR CKD-EPI 2024 CBC WITH DIFF 11/20/2024 Insurance Providers Payer Name Payer Address Payer Phone Subscriber Number Group Number Insured Name Patient Relationship to Insured Coverage Start Date Coverage End Date [employer] [place] [employer] [address] [facility] [place] [address] [id number] Hector Gaspar Self - patient is the insured Medical (General) History Medical History History ICD Code hypertension hyperlipidemia AAA copd Surgical History Surgery Date(Month/Year) appendectomy AAA repair 11/14/24
--- OUTSIDE RECORDS SUMMARY | 2025-03-17 21:25 | XMS_ITS | Encounter Summary ---
Author Organization [employer] Address [facility] [place] [id number] [address] [place] [address] Care Team Providers Care Security Installation Sales Technician Name Role Phone Sukumar Davison MD Primary Care Provider [phone] Encounter Details Date Type Department Care Team (Late st Contact Info) Description 08/11/2023 Telephone [facility] [address] [place] [address] Kana Faith MD [address], [facility] [address] [place] [address] Social History Tobacco Use Types Packs/Day Years [...] got money to buy more. Never True 08/05/2023 Within the past 12 months th e food we bought just didn't last and we didn't have money to get more. Never True 08/05/2023 Sex and Gender Information Value Date Recorded Sex Assigned at Not on file Legal Sex Male 11:15 AM EST Gender Identity Not on file Sexual Orientation Not on file documented as of this encounter Miscellaneous Notes * Telephone Encounter - Gerri Thomas - 08/11/2023 11:43 AM EST Please fax completed office notes (as soon as they are available) to BARBARA Hill at [facility] at [phone] Thank you * Telephone Encounter - Kendal Carmen LPN - 08/11/2023 11:[address] Faith notes need to be completed to be faxed to BARBARA Hill at [facility] at [phone]. documented in this encounter Plan of Treatment Not on file documented as of this encounter Visit Diagnoses Not on filedocumented in this encounter Care Teams Security Installation Sales Technician Relationship Specialty Start Date End Date Sukumar Davison MD [address] [place] [address] PCP - General Family Medicine 09/12/24 documented as of this encounter
--- OUTSIDE RECORDS SUMMARY | 2025-03-17 21:25 | XMS_ITS | CCD ---
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 Name Role Phone DO Wagner Marrufo Attending Provider [phone] Brock Modi Unavailable Wagner Marrufo Unavailable DO Wagner Marrufo Attending Provider MD Brock Modi Primary Care Provider [phone] MD Filipe [facility] Admit Provider [phone] MD Barbara Rivero Attending Provider Brock Modi Unavailable Unavailable Unavailable Adi Campos Unavailable ZELALEM Faustin Attending Provider MD Adi Campos Attending Provider [phone] KULDEEP, DR CAR Torres Attending Unavailable KULDEEP, DR CAR Torres Admitting Unavailable [facility] ., DR JUSTIN Urbano Consulting Unavailable [...] ARLIN Simpson Attending Unavailable ALPHONSE, DR ARLIN Simspon Admitting Unavailable MODI, DR BROCK Urbano Primary [...] Provider UnavailSeymour Fischer MD Primary Care Provider [phone] Seymour Harper MD Primary Care Provider [phone] ALOK WEBBER Attending Unavailable ALOK WEBBER Referring [...] Care Unavailable GEOVANY, MOHAMED F Attending Unavailable GEOVAYN, MOHAMED F Referring Unavailable HOY, SEYMOUR M [...] & Blurred vision, Comment:nausea and blurred vision [facility] (20 sources) Substance with penicillin structure and antibacterial mechanism of action (substance) Drug allergy Edema, Unknown [facility] Other (20 sources) Pneumococcal 7-Zulma Conj Vacc Drug allergy undefined, Comment:pneumo nococcal 23 [facility] Other (20 sources) Penicillins; Translations: [Penicillins] Propensity to adverse reactions 05-29-20 13 Hives, Swelling [facility] (20 sources) Pneumococcal vaccine; Translations: [PNEUMOCOCCAL VACCINE] Drug Allergy 08-08-19 22 Other, Nausea And Vomiting [facility] (8 sources) Pneumococcal vaccine; Translations: [Pneumococcal Vaccines] Drug Allergy Hives [place] [address] DO Work Phone: (2 sources) Penicillin Drug Allergy 07-29-19 16 Unknown [facility] Other (2 sources) patient allergy list reviewed by nurse or physicia Propensity to adverse reactions 07-29-19 16 Comment:Done [employer] Other (2 sources) Allergies Reconciled Propensity to adverse reactions Unknown [facility] Other (7 sources) pneumococcal 7-valent conjugate to; Translations: [pneumococcal 7-valent conjugate to] Allergy to substance 10-26-19 Comment:pneumo nococcal 23 [facility] (10 sources) Ciprofloxacin; Translations: [CIPROFLOXACIN HCL] Drug Allergy 08-08-19 [facility] [employer] (1 source) Ciprofloxacin Drug Allergy 05-29-20 [facility] Repository Medications Current Medications Medication Drug [...] Start: 11-12-2022 take 2 tablets by [facility] every twenty-four hours predniSONE 20 MG 2 tablets Orally Once a day for 5 days Oct, Active Start: 07-30-2022 take 1 tablet by [facility] every twenty-four hours predniSONE 10 MG [...] 5 mg capsule Take by mouth. 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 Urine Cultureon 11-25-2024 Bacteria identified Cx Nom (U) 10,000 colonies/ml mixed bacterial skin contaminants 2 Days PERFORMED BY: [address] [address] PATHOLOGIST CHANNEL PROCESS PLANT OPERATOR ROM COOPER M.D. Normal [facility] Comment on above: Performed By: #### C UU #### [address] [place] [address] [facility] BASIC METABOLIC PANLon 11-15 Anion gap [Moles/Vol] 9 mmol/L Normal 5-15 [facility] Comment on above: Performed By: #### C BCA, BMP, PINR, 01099-3 #### [facility] ([id number]) [address], [address] [place] [address] Calcium [Mass/Vol] 8.6 mg/dL Normal 8.5-10.5 [facility] Comment on above: Performed By: #### C BCA, BMP, PINR, 30366-3 #### [facility] ([id number]) [address], [address] [place] [address] Chloride [Moles/Vol] 109 mmol/L Normal 98-109 [facility] Comment on above: Performed By: #### C BCA, BMP, PINR, 32944-1 #### [facility] ([id number]) [address], [address] [place] [address] CO2 [Moles/Vol] 24 mmol/L Normal 22-32 [facility] Comment on above: Performed By: #### C BCA, BMP, PINR, 62476-9 #### [facility] ([id number]) [address], [address] [place] [address] Creatinine [Mass/Vol] 1.22 mg/dL Normal 0.60-1.30 [facility] Comment on above: Result Comment: METH OD TRACEABLE TO IDMS STANDARD Performed By: #### C BCA, BMP, PINR, 25915-5 #### [facility] ([id number]) [address], [address] [place] [address] GFR/1.73 sq M.predicted among non-blacks MDRD (S/P/Bld) [Vol rate/Area] 66 mL/min/{1.73_m2} Normal >59 [facility] Comment on above: Result Comment: Reported eGFR is based on the CKD-EPI 2020 equation that does not use a race coefficient. Performed By: #### C BCA, BMP, PINR, 64607-8 #### [facility] ([id number]) [address], [address] [place] [address] Glucose [Mass/Vol] 155 mg/dL High 65-99 [facility] Comment on above: Performed By: #### C BCA, BMP, PINR, 62339-1 #### [facility] ([id number]) [address] [address] [place] [address] Potassium [Moles/Vol] 4.3 mmol/L Normal 3.5-5.0 [facility] Comment on above: Performed By: #### C BCA, BMP, PINR, 00970-8 #### [facility] ([id number]) [address] [address] Sodium [Moles/Vol] 142 mmol/L Normal 134-146 [facility] Comment on above: Performed By: #### C BCA, BMP, PINR, 45871-9 #### [facility] ([id number]) [address] [address] [place] [address] Urea nitrogen [Mass/Vol] 24 mg/dL Normal 5-27 [facility] Comment on above: Performed By: #### C BCA, BMP, PINR, 59434-2 #### [facility] ([id number]) [address] [address] CBC AND AUTO DIFFon 11-16-19 25 ABSOLUTE BASOPHIL 0.0 X10E9/L Normal 0.0-0.2 [facility] Comment on above: Performed By: #### C BCA, BMP #### [facility] ([id number]) [address] [address] [place] [address] ABSOLUTE NEUTROPHIL 7.6 X10E9/L High 1.5-6.6 [facility] Comment on above: Performed By: #### C BCA, BMP #### [facility] ([id number]) [address], [address] [place] [address] Basophils/100 WBC (Bld) 0.2 % Normal [facility] Comment on above: Performed By: #### C BCA, BMP #### [facility] ([id number]) [address], [address] [place] [address] Eosinophils (Bld) [#/Vol] 0.0 10*3/uL Normal 0.0-0.4 [facility] Comment on above: Performed By: #### C SEBASTIÁN, BMP #### [facility] ([id number]) [address] [address] [place] [address] Eosinophils/100 WBC (Bld) 0.0 % Normal [facility] Comment on above: Performed By: #### C SEBASTIÁN, BMP #### [facility] ([id number]) [address], [address] [place] [address] Erythrocyte distribution width (RBC) [Ratio] 14.0 % Normal 11.5-15.0 [facility] Comment on above: Performed By: #### C BCA, BMP #### [facility] ([id number]) [address], [address] [place] [address] Hematocrit (Bld) [Volume fraction] 33.0 % Low 39-49 [facility] Comment on above: Performed By: #### C BCA, BMP #### [facility] ([id number]) [address], [address] [place] [address] Hemoglobin (Bld) [Mass/Vol] 11.7 g/dL Low 13.0-17.0 [facility] Comment on above: Performed By: #### C BCA, BMP #### [facility] ([id number]) [address], [address] [place] [address] Lymphocytes (Bld) [#/Vol] 0.9 10*3/uL Low 1.0-3.5 [facility] Comment on above: Performed By: #### C SEBASTIÁN, BMP #### [facility] ([id number]) [address], [address] [place] [address] Lymphocytes/100 WBC (Bld) 9.4 % Normal [facility] Comment on above: Performed By: #### C SEBASTIÁN, BMP #### [facility] ([id number]) [address], [address] [place] [address] MCH (RBC) [Entitic mass] 32.2 pg Normal 27-34 [facility] Comment on above: Performed By: #### C SEBASTIÁN, BMP #### [facility] ([id number]) [address] [place] [address] MCHC (RBC) [Mass/Vol] 35.3 g/dL Normal 32-36 [facility] Comment on above: Performed By: #### C SEBASTIÁN, BMP #### [facility] ([id number]) [address], [address] [place] [address] MCV (RBC) [Entitic vol] 91 fL Normal 80-100 [facility] Comment on above: Performed By: #### C SEBASTIÁN, BMP #### [facility] ([id number]) [address] [place] [address] Monocytes (Bld) [#/Vol] 0.8 10*3/uL Normal 0-0.9 [facility] Comment on above: Performed By: #### C SEBASTIÁN, BMP #### [facility] ([id number]) [address], [address] [place] [address] Monocytes/100 WBC (Bld) 8.5 % Normal [facility] Comment on above: Performed By: #### Augustin LOWERY, BMP #### [facility] ([id number]) [address] [place] [address] Neutrophils/100 WBC (Bld) 81.9 % Normal [facility] Comment on above: Performed By: #### C SEBASTIÁN, BMP #### [facility] ([id number]) [address], [address] [place] [address] Platelet mean volume (Bld) [Entitic vol] 7.9 fL Normal 7-12 [facility] Comment on above: Performed By: #### C SEBASTIÁN, BMP #### [facility] ([id number]) [address] [place] [address] Platelets (Bld) [#/Vol] 141 10*3/uL Low 150-450 [facility] Comment on above: Performed By: #### C SEBASTIÁN, BMP #### [facility] ([id number]) [address] [place] [address] RBC COUNT 3.62 X10E12/L Low 4.10-5.70 [facility] Comment on above: Performed By: #### C SEBASTIÁN, BMP #### [facility] ([id number]) [address] [place] [address] WBC (Bld) [#/Vol] 9.2 10*3/uL Normal 4.0-11.0 [facility] Comment on above: Performed By: #### C SEBASTIÁN, BMP #### [facility] ([id number]) [address], [address] [place] [address] BASIC METABOLIC PANLon 11-14 Anion gap [Moles/Vol] 5 mmol/L Normal 5-15 [facility] Comment on above: Performed By: #### C SEBASTIÁN, BMP #### [facility] ([id number]) [address], [address] [place] [address] Calcium [Mass/Vol] 8.4 mg/dL Low 8.5-10.5 [facility] Comment on above: Performed By: #### C BCA, BMP #### [facility] ([id number]) [address], [address] [place] [address] Chloride [Moles/Vol] 107 mmol/L Normal 98-109 [facility] Comment on above: Performed By: #### C BCA, BMP #### [facility] ([id number]) [address], [address] [place] [address] CO2 [Moles/Vol] 26 mmol/L Normal 22-32 [facility] Comment on above: Performed By: #### C BCA, BMP #### [facility] ([id number]) [address] [place] [address] Creatinine [Mass/Vol] 1.10 mg/dL Normal 0.60-1.30 [facility] Comment on above: Result Comment: METH OD TRACEABLE TO IDMS STANDARD Performed By: #### C BCA, BMP #### [facility] ([id number]) [address], [address] [place] [address] GFR/1.73 sq M.predicted among non-blacks MDRD (S/P/Bld) [Vol rate/Area] 75 mL/min/{1.73_m2} Normal >59 [facility] Comment on above: Result Comment: Reported eGFR is based on the CKD-EPI 2020 equation that does not use a race coefficient. Performed By: #### C BCA, BMP #### [facility] ([id number]) [address], [address] [place] [address] Glucose [Mass/Vol] 102 mg/dL High 65-99 [facility] Comment on above: Performed By: #### C BCA, BMP #### [facility] ([id number]) [address] [place] [address] Potassium [Moles/Vol] 4.6 mmol/L Normal 3.5-5.0 [facility] Comment on above: Performed By: #### C BCA, BMP #### [facility] ([id number]) [address] [place] [address] Sodium [Moles/Vol] 138 mmol/L Normal 134-146 [facility] Comment on above: Performed By: #### C BCA, BMP #### [facility] ([id number]) [address] [place] [address] Urea nitrogen [Mass/Vol] 17 mg/dL Normal 5-27 [facility] Comment on above: Performed By: #### C SEBASTIÁN, BMP #### [facility] ([id number]) [address], [address] [place] [address] CBC AND AUTO DIFFon 11-15-19 ABSOLUTE BASOPHIL 0.0 X10E9/L Normal 0.0-0.2 [facility] Comment on above: Performed By: #### C BCA, BMP #### [facility] ([id number]) [address] [place] [address] ABSOLUTE NEUTROPHIL 3.7 X10E9/L Normal 1.5-6.6 [facility] Comment on above: Performed By: #### C BCA, BMP #### [facility] ([id number]) [address] [place] [address] Basophils/100 WBC (Bld) 0.4 % Normal [facility] Comment on above: Performed By: #### C BCA, BMP #### [facility] ([id number]) [address] [place] [address] Eosinophils (Bld) [#/Vol] 0.1 10*3/uL Normal 0.0-0.4 [facility] Comment on above: Performed By: #### C BCA, BMP #### [facility] ([id number]) [address] [place] [address] Eosinophils/100 WBC (Bld) 2.8 % Normal [facility] Comment on above: Performed By: #### C SEBASTIÁN, BMP #### [facility] ([id number]) [address] [place] [address] Erythrocyte distribution width (RBC) [Ratio] 14.4 % Normal 11.5-15.0 [facility] Comment on above: Performed By: #### C SEBASTIÁN, BMP #### [facility] ([id number]) [address] [place] [address] Hematocrit (Bld) [Volume fraction] 34.9 % Low 39-49 [facility] Comment on above: Performed By: #### C SEBASTIÁN, BMP #### [facility] ([id number]) [address] [place] [address] Hemoglobin (Bld) [Mass/Vol] 12.2 g/dL Low 13.0-17.0 [facility] Comment on above: Performed By: #### C SEBASTIÁN, BMP #### [facility] ([id number]) [address] [place] [address] Lymphocytes (Bld) [#/Vol] 0.7 10*3/uL Low 1.0-3.5 [facility] Comment on above: Performed By: #### C BCA, BMP #### [facility] ([id number]) [address] [place] [address] Lymphocytes/100 WBC (Bld) 15.1 % Normal [facility] Comment on above: Performed By: #### C BCA, BMP #### [facility] ([id number]) [address] [place] [address] MCH (RBC) [Entitic mass] 31.3 pg Normal 27-34 [facility] Comment on above: Performed By: #### C BCA, BMP #### [facility] ([id number]) [address] [place] [address] MCHC (RBC) [Mass/Vol] 35.0 g/dL Normal 32-36 [facility] Comment on above: Performed By: #### C SEBASTIÁN, BMP #### [facility] ([id number]) [address] [place] [address] MCV (RBC) [Entitic vol] 90 fL Normal 80-100 [facility] Comment on above: Performed By: #### C SEBASTIÁN, BMP #### [facility] ([id number]) [address] [place] [address] Monocytes (Bld) [#/Vol] 0.3 10*3/uL Normal 0-0.9 [facility] Comment on above: Performed By: #### C SEBASTIÁN, BMP #### [facility] ([id number]) [address] [place] [address] Monocytes/100 WBC (Bld) 6.0 % Normal [facility] Comment on above: Performed By: #### C SEBASTIÁN, BMP #### [facility] ([id number]) [address] [place] [address] Neutrophils/100 WBC (Bld) 75.7 % Normal [facility] Comment on above: Performed By: #### C SEBASTIÁN, BMP #### [facility] ([id number]) [address] [place] [address] Platelet mean volume (Bld) [Entitic vol] 7.5 fL Normal 7-12 [facility] Comment on above: Performed By: #### C SEBASTIÁN, BMP #### [facility] ([id number]) [address] [place] [address] Platelets (Bld) [#/Vol] 141 10*3/uL Low 150-450 [facility] Comment on above: Performed By: #### C BCA, BMP #### [facility] ([id number]) [address] [place] [address] RBC COUNT 3.90 X10E12/L Low 4.10-5.70 [facility] Comment on above: Performed By: #### C BCA, BMP #### [facility] ([id number]) [address] [place] [address] WBC (Bld) [#/Vol] 4.8 10*3/uL Normal 4.0-11.0 [facility] Comment on above: Performed By: #### C BCA, BMP #### [facility] ([id number]) [address] [place] [address] Magnesium Ionized ISE (Bld) [Moles/Vol]on 11-14-2024 Magnesium [Moles/Vol] 0.49 mmol/L Normal 0.45-0.74 [facility] Comment on above: Result Comment: NEW REFERENCE RANGE Performed By: #### 7 [id number] #### [facility] ([id number]) [address] [place] [address] RAPID CARDIACon 11-14-2024 ABEBA'S TEST Normal [facility] Comment on above: Performed By: #### A FAB5 #### [facility] ([id number]) [address] [place] [address] Base excess Calc (Bld) [Moles/Vol] 0.1 mmol/L Normal 0.0-2.0 [facility] Comment on above: Performed By: #### A FAB5 #### [facility] ([id number]) [address] [place] [address] Body temperature 98.6 [degF] Normal 37.0 [facility] Comment on above: Performed By: #### A FAB5 #### [facility] ([id number]) [address] [place] [address] Glucose [Mass/Vol] 122 mg/dL High 65-99 [facility] Comment on above: Performed By: #### A FAB5 #### [facility] ([id number]) [address] [place] [address] HCO3 (Bld) [Moles/Vol] 25.4 mmol/L Normal 22-26 [facility] Comment on above: Performed By: #### A FAB5 #### [facility] ([id number]) [address] [place] [address] Hematocrit (Bld) [Volume fraction] 40 % Normal 39-49 [facility] Comment on above: Performed By: #### A FAB5 #### [facility] ([id number]) [address] [place] [address] Hemoglobin (Bld) [Mass/Vol] 13.0 g/dL Normal 13.0-17.0 [facility] Comment on above: Performed By: #### A FAB5 #### [facility] ([id number]) [address] [place] [address] INSP. O2 CONC. 100 % Normal [facility] Comment on above: Performed By: #### A FAB5 #### [facility] ([id number]) [address] [place] [address] IONIZED CALCIUM 4.8 mg/dL Normal 4.5-5.3 [facility] Comment on above: Performed By: #### A FAB5 #### [facility] ([id number]) [address] [place] [address] Oxygen (Bld) [Partial pressure] 391 mm[Hg] High 80-100 [facility] Comment on above: Performed By: #### A FAB5 #### [facility] ([id number]) [address] [place] [address] Oxygen saturation in Blood 100.4 % Normal >90 [facility] Comment on above: Performed By: #### A FAB5 #### [facility] ([id number]) [address] [place] [address] PCO2 43.6 MMHG Normal 35-45 [facility] Comment on above: Performed By: #### A FAB5 #### [facility] ([id number]) [address] [place] [address] pH (Bld) 7.373 [pH] Normal 7.350-7.45 0 [facility] Comment on above: Performed By: #### A FAB5 #### [facility] ([id number]) [address] [place] [address] Potassium [Moles/Vol] 4.3 mmol/L Normal 3.5-5.0 [facility] Comment on above: Performed By: #### A FAB5 #### [facility] ([id number]) [address] [place] [address] SAMPLE SITE MARY Normal [facility] Comment on above: Performed By: #### A FAB5 #### [facility] ([id number]) [address] [place] [address] SAMPLE TYPE Arterial Normal [facility] Comment on above: Performed By: #### A FAB5 #### [facility] ([id number]) [address] [place] [address] ABO Rh Repeaton 10-31-2024 ABO B [facility] Rh Nom (Bld) Positive [facility] APTTon 10-31-2024 aPTT Coag (PPP) [Time] 31 s [facility] BASIC METABOLIC PANLon 10-31 Anion gap [Moles/Vol] 7 mmol/L Normal 5-15 [facility] Comment on above: Performed By: #### C BCA, BMP, PINR, 53805-0 #### [facility] [facility] ([id number]) [address], [address] [place] [address] Calcium [Mass/Vol] 9.7 mg/dL Normal 8.5-10.5 [facility] Comment on above: Performed By: #### C BCA, BMP, PINR, 74535-4 #### [facility] ([id number]) [address], [address] [place] [address] Chloride [Moles/Vol] 103 mmol/L Normal 98-109 [facility] Comment on above: Performed By: #### C BCA, BMP, PINR, 59375-9 #### [facility] ([id number]) [address], [address] [place] [address] CO2 [Moles/Vol] 30 mmol/L Normal 22-32 [facility] Comment on above: Performed By: #### C BCA, BMP, PINR, 31592-6 #### [facility] ([id number]) [address], [address] [place] [address] Creatinine [Mass/Vol] 1.33 mg/dL High 0.60-1.30 [facility] Comment on above: Result Comment: METH OD TRACEABLE TO IDMS STANDARD Performed By: #### C BCA, BMP, PINR, 13276-6 #### [facility] ([id number]) [address], [address] [place] [address] GFR/1.73 sq M.predicted among non-blacks MDRD (S/P/Bld) [Vol rate/Area] 60 mL/min/{1.73_m2} Normal >59 [facility] Comment on above: Result Comment: Reported eGFR is based on the CKD-EPI 2020 equation that does not use a race coefficient. Performed By: #### C BCA, BMP, PINR, 15886-5 #### [facility] ([id number]) [address], [address] [place] [address] Glucose [Mass/Vol] 102 mg/dL High 65-99 [facility] Comment on above: Performed By: #### C BCA, BMP, PINR, 24630-1 #### [facility] ([id number]) [address], [address] [place] [address] Potassium [Moles/Vol] 4.3 mmol/L Normal 3.5-5.0 [facility] Comment on above: Performed By: #### C BCA, BMP, PINR, 67672-2 #### [facility] ([id number]) [address], [address] [place] [address] Sodium [Moles/Vol] 140 mmol/L Normal 134-146 [facility] Comment on above: Performed By: #### C BCA, BMP, PINR, 86456-1 #### [facility] ([id number]) [address], [address] [place] [address] Urea nitrogen [Mass/Vol] 22 mg/dL Normal 5-27 [facility] Comment on above: Performed By: #### C BCA, BMP, PINR, 08510-4 #### [facility] ([id number]) [address], [address] [place] [address] Basic Metabolic Panelon 04-0 Anion gap [Moles/Vol] 7 mmol/L 5 - 15 mmol/L [facility] Calcium [Mass/Vol] 9.7 mg/dL 8.5 - 10. 5 mg/dL [facility] Chloride [Moles/Vol] 103 mmol/L 98 - 10 9 mmol/L [facility] CO2 [Moles/Vol] 30 mmol/L 22 - 32 mmol/L [facility] Creatinine [Mass/Vol] 1.33 mg/dL High 0.60 - 1.30 mg/dL [facility] Comment on above: METHOD TRACEABLE TO IDMS STANDARD eGFR (CKD-EPI)non-race dependent 60 - PINF [facility] Comment on above: Reported eGFR is based on the CKD-EPI 2020 equation that does not use a race coefficient. Glucose [Mass/Vol] 102 mg/dL High 65 - 99 mg/dL [facility] Interpretation and review of laboratory results Abnormal [facility] Potassium [Moles/Vol] 4.3 mmol/L 3.5 - 5.0 mmol/L [facility] Sodium [Moles/Vol] 140 mmol/L 134 - 146 mmol/L [facility] Urea nitrogen [Mass/Vol] 22 mg/dL 5 - 27 mg/dL [facility] CBC AND AUTO DIFFon 11-01-19 25 ABSOLUTE BASOPHIL 0.0 X10E9/L Normal 0.0-0.2 [facility] Comment on above: Performed By: #### C BCA, BMP, PINR, 32331-2 #### [facility] ([id number]) [address], [address] [place] [address] ABSOLUTE NEUTROPHIL 3.2 X10E9/L Normal 1.5-6.6 [facility] Comment on above: Performed By: #### C BCA, BMP, PINR, 29020-5 #### [facility] ([id number]) [address], [address] [place] [address] Basophils/100 WBC (Bld) 0.8 % Normal [facility] Comment on above: Performed By: #### C BCA, BMP, PINR, 97863-3 #### [facility] ([id number]) [address], [address] [place] [address] Eosinophils (Bld) [#/Vol] 0.2 10*3/uL Normal 0.0-0.4 [facility] Comment on above: Performed By: #### C BCA, BMP, PINR, 85742-2 #### [facility] ([id number]) [address], [address] [place] [address] Eosinophils/100 WBC (Bld) 3.4 % Normal [facility] Comment on above: Performed By: #### C BCA, BMP, PINR, 46610-1 #### [facility] ([id number]) [address], [address] [place] [address] Erythrocyte distribution width (RBC) [Ratio] 14.6 % Normal 11.5-15.0 [facility] Comment on above: Performed By: #### C BCA, BMP, PINR, 23882-8 #### [facility] ([id number]) [address], [address] [place] [address] Hematocrit (Bld) [Volume fraction] 43.7 % Normal 39-49 [facility] Comment on above: Performed By: #### C BCA, BMP, PINR, 84068-9 #### [facility] ([id number]) [address], [address] [place] [address] Hemoglobin (Bld) [Mass/Vol] 14.9 g/dL Normal 13.0-17.0 [facility] Comment on above: Performed By: #### C BCA, BMP, PINR, 05772-2 #### [facility] ([id number]) [address], [address] [place] [address] Lymphocytes (Bld) [#/Vol] 1.7 10*3/uL Normal 1.0-3.5 [facility] Comment on above: Performed By: #### C BCA, BMP, PINR, 19872-1 #### [facility] ([id number]) [address], [address] [place] [address] Lymphocytes/100 WBC (Bld) 29.4 % Normal [facility] Comment on above: Performed By: #### C BCA, BMP, PINR, 60386-0 #### [facility] ([id number]) [address], [address] [place] [address] MCH (RBC) [Entitic mass] 30.4 pg Normal 27-34 [facility] Comment on above: Performed By: #### C BCA, BMP, PINR, 21788-1 #### [facility] ([id number]) [address], [address] [place] [address] MCHC (RBC) [Mass/Vol] 34.1 g/dL Normal 32-36 [facility] Comment on above: Performed By: #### C BCA, BMP, PINR, 16672-7 #### [facility] ([id number]) [address], [address] [place] [address] MCV (RBC) [Entitic vol] 89 fL Normal 80-100 [facility] Comment on above: Performed By: #### C BCA, BMP, PINR, 95202-6 #### [facility] ([id number]) [address], [address] [place] [address] Monocytes (Bld) [#/Vol] 0.7 10*3/uL Normal 0-0.9 [facility] Comment on above: Performed By: #### C BCA, BMP, PINR, 09509-3 #### [facility] ([id number]) [address], [address] [place] [address] Monocytes/100 WBC (Bld) 12.0 % Normal [facility] Comment on above: Performed By: #### C BCA, BMP, PINR, 60268-5 #### [facility] ([id number]) [address], [address] [place] [address] Neutrophils/100 WBC (Bld) 54.4 % Normal [facility] Comment on above: Performed By: #### C BCA, BMP, PINR, 20288-4 #### [facility] ([id number]) [address], [address] [place] [address] Platelet mean volume (Bld) [Entitic vol] 8.0 fL Normal 7-12 [facility] Comment on above: Performed By: #### C BCA, BMP, PINR, 88388-2 #### [facility] ([id number]) [address], [address] [place] [address] Platelets (Bld) [#/Vol] 268 10*3/uL Normal 150-450 [facility] Comment on above: Performed By: #### C BCA, BMP, PINR, 53786-5 #### [facility] ([id number]) [address], [address] [place] [address] RBC COUNT 4.89 X10E12/L Normal 4.10-5.70 [facility] Comment on above: Performed By: #### C BCA, BMP, PINR, 85608-5 #### [facility] ([id number]) [address], [address] [place] [address] WBC (Bld) [#/Vol] 5.8 10*3/uL Normal 4.0-11.0 [facility] Comment on above: Performed By: #### C BCA, BMP, PINR, 92332-9 #### [facility] ([id number]) [address], [address] [place] [address] CBC auto differentialon 04-0 Basophils (Bld) [#/Vol] 0 10*3/uL [facility] Basophils/100 WBC (Bld) 0.8 % [facility] Eosinophils (Bld) [#/Vol] 0.2 10*3/uL [facility] Eosinophils/100 WBC (Bld) 3.4 % [facility] Erythrocyte distribution width (RBC) [Ratio] 14.6 % 11.5 - 15.0 % [facility] Hematocrit (Bld) [Volume fraction] 43.7 % 39 - 49 % [facility] Hemoglobin (Bld) [Mass/Vol] 14.9 g/dL 13.0 - 17.0 g/dL [facility] Lymphocytes (Bld) [#/Vol] 1.7 10*3/uL [facility] Lymphocytes/100 WBC (Bld) 29.4 % [facility] MCH (RBC) [Entitic mass] 30.4 pg 27 - 34 pg [facility] MCHC (RBC) [Mass/Vol] 34.1 g/dL 32 - 3 6 g/dL [facility] MCV (RBC) [Entitic vol] 89 fL 80 - 100 fL [facility] Monocytes (Bld) [#/Vol] 0.7 10*3/uL [facility] Monocytes/100 WBC (Bld) 12 % [facility] Neutrophils (Bld) [#/Vol] 3.2 10*3/uL [facility] Neutrophils/100 WBC (Bld) 54.4 % [facility] Platelet mean volume (Bld) [Entitic vol] 8 fL 7 - 12 fL [facility] Platelets (Bld) [#/Vol] 268 10*3/uL [facility] RBC (Bld) [#/Vol] 4.89 10*6/uL [facility] WBC corrected for nucl RBC Auto (Bld) [#/Vol] 5.8 [facility] No Panel Informationon 10-31 [facility] PROTIME AND INRon 10-31-2024 INR Coag (PPP) [Relative time] 0.9 {INR} Normal 0.9-1.2 [facility] Comment on above: Performed By: #### C BCA, BMP, PINR, 83807-6 #### [facility] ([id number]) [address], [address] [place] [address] PT Coag (PPP) [Time] 9.9 s Normal 9.8-13.2 [facility] Comment on above: Performed By: #### C BCA, BMP, PINR, 04815-9 #### [facility] ([id number]) [address], [address] [place] [address] Protime-INRon 10-31-2024 INR Coag (PPP) [Relative time] 0.9 {INR} [facility] PT Coag (PPP) [Time] 9.9 s [facility] Type and screen(includes ind irect rosetta)on 10-31-2024 ABO B [facility] Rh Nom (Bld) Positive [facility] URINALYSISon 10-31-2024 Bilirubin Ql (U) Negative Normal NEG [facility] Comment on above: Performed By: #### U A #### [facility] ([id number]) [address], [address] [place] [address] BLOOD/HGB Negative Normal NEG [facility] Comment on above: Performed By: #### U A #### [facility] ([id number]) [address], [address] [place] [address] Color (U) YELLOW Normal YELLOW [facility] Comment on above: Performed By: #### U A #### [facility] ([id number]) [address], [address] [place] [address] Glucose Ql (U) Negative Normal NEG [facility] Comment on above: Performed By: #### U A #### [facility] ([id number]) [address], [address] [place] [address] Ketones Ql (U) Negative Normal NEG [facility] Comment on above: Performed By: #### U A #### [facility] ([id number]) [address], [address] [place] [address] Leukocyte esterase Test strip Ql (U) Negative Normal NEG [facility] Comment on above: Performed By: #### U A #### [facility] ([id number]) [address], [address] [place] [address] MUCOUS PRESENT Abnormal NONE [facility] Comment on above: Performed By: #### U A #### [facility] ([id number]) [address], [address] [place] [address] Nitrite Ql (U) Negative Normal NEG [facility] Comment on above: Performed By: #### U A #### [facility] ([id number]) [address] [place] [address] pH (U) 6.0 [pH] Normal 5.0-8.5 [facility] Comment on above: Performed By: #### U A #### [facility] ([id number]) [address] [address] Protein Ql (U) 50 mg/dL Abnormal NEG [facility] Comment on above: Performed By: #### U A #### [facility] ([id number]) [address] [address] R.B.CELLS 0 /hpf Normal 0-5 [facility] Comment on above: Performed By: #### U A #### [facility] ([id number]) [address] [address] Specific gravity (U) [Rel density] 1.035 Normal 1.003-1.03 5 [facility] Comment on above: Performed By: #### U A #### [facility] ([id number]) [address] [address] SQUAMOUS EPITHELIUM 14 /hpf High 0-5 [facility] Comment on above: Performed By: #### U A #### [facility] ([id number]) [address] [address] TURBIDITY CLOUDY Abnormal CLEAR [facility] Comment on above: Performed By: #### U A #### [facility] ([id number]) [address] [address] Urinalysis dipstick W Reflex Microscopic panel (U) URINE RECEIVED WITHOUT PRESERVATIVE-DELAYS IN TRANSPORT MAY AFFECT RESULTS.INTERPRET WITH CAUTION AND CLINICAL CORRELATION IS RECOMMENDED. Normal [facility] Comment on above: Performed By: #### U A #### [facility] ([id number]) [address], [address] [place] [address] Urobilinogen (U) [Mass/Vol] mg/dL Normal <1.1 [facility] Comment on above: Performed By: #### U A #### [facility] ([id number]) [address], [address] [place] [address] W.B.CELLS 3 /hpf Normal 0-5 [facility] Comment on above: Performed By: #### U A #### [facility] ([id number]) [address], [address] [place] [address] Urinalysison 10-31-2024 Bilirubin Ql (U) Negative Negative^N egative [facility] Color (U) YELLOW YELLOW^YEL LOW [facility] Epithelial cells Auto (Urine sed) [#/Area] 14 High [facility] Glucose (U) [Mass/Vol] Negative Negat carol^N egative mg/dL [facility] Hemoglobin Auto test strip Ql (U) Negative Negative^N egative [facility] Interpretation and review of laboratory results Abnormal [facility] Ketones (U) [Mass/Vol] Negative Negat carol^N egative mg/dL [facility] Leukocyte esterase Auto test strip Ql (U) Negative Negative^N egative [facility] Mucus Ql (Urine sed) PRESENT Abnormal NONE^NONE [facility] Nitrite Auto test strip Ql (U) Negative Negative^N egative [facility] pH (U) 6 [pH] 5.0 - 8.5 [facility] Protein (U) [Mass/Vol] 50 mg/dL Abnormal Negat carol^N egative [facility] RBC Auto (Urine sed) [#/Area] 0 [facility] Specific gravity Refractometry automated (U) [Rel density] 1.035 1.003 - 1.035 [facility] Turbidity Ql (U) CLOUDY Abnormal CLEAR^BASHIR R [facility] Urinalysis microscopic panel Auto (Urine sed) [#/Area] URINE RECEIVED WITHOUT PRESERVATIVE-DELAYS IN TRANSPORT MAY AFFECT RESULTS.INTERPRET WITH CAUTION AND CLINICAL CORRELATION IS RECOMMENDED. [facility] Urobilinogen Qn (U) NINF [facility] WBC Auto (Urine sed) [#/Area] 3 [facility] aPTT Coag (PPP) [Time]on aPTT Coag (Bld) [Time] 31 s Normal 26-37 [facility] Comment on above: Performed By: #### C BCA, BMP, PINR, 50407-9 #### [facility] ([id number]) [address] [place] [address] ECG 12 Leadon 09-20-2024 Sinus tachycardia, incomplete right bundle branch block, abnormal ECG [facility] Work Phone: [place] [address] [place] Scan Report Signed Patient: HECTOR GASPAR MR#: [id number] : 1960 Acct:[id number] Age/Sex: 64 / M ADM Date: 09/11/24 Loc: CT Attending Dr: Rom Pierre M.D. Ordering Physician: Rom Pierre M.D. Date of Service: 09/11/24 Procedure(s): CT angio abdomen pelvis Accession Number(s): [id number] cc: Seymour Harper M.D. [place] [id number] Patient Name: HECTOR GASPAR MRN: [id number] date: 1960 Sex: M Assigned Patient Location: CT Current Patient Location: CT Accession/Order Number: [id number] Exam Date: 09/11/2024 13:03 Report Date: 09/11/2024 [...] Leonardo M.D. Signed By: 09/11/24 1600 DD/ 3257 TD/TT: Concrete P[employer]rer: [employer] Radiology, Radiologi MD keaton - 09/12/2024 [place] [address] CT Scan Report Signed Patient: HECTOR GASPAR MR#: [id number] : 1960 Acct:[id number] Age/Sex: 64 / M ADM Date: 09/11/24 Loc: CT Attending Dr: Rom Pierre M.D. Ordering Physician: Rom Pierre M.D. Date of Service: 09/11/24 Procedure(s): CT angio abdomen pelvis Accession Number(s): [id number] cc: Seymour Harper M.D. [facility] [place] [id number] Patient Name: HECTOR GASPAR MRN: [id number] date: 1960 Sex: M Assigned Patient Location: CT Current Patient Location: CT Accession/Order Number: [id number] Exam Date: 09/11/2024 13:03 Report Date: 09/11/2024 [...] Leonardo M.D. Signed By: 09/11/24 1600 DD/ 5487 TD/TT: Concrete Pourer: [facility] Radiology Study observation (narrative) [facility] CT ANGIO ABDOMEN PELVISOrder ed By: Radiologist Radiology on 09-11-2024 [facility] Work Phone: Basophils Auto (Bld) [#/Vol] on 05-07-2024 Basophils (Bld) [#/Vol] 0.0 10 3/uL 0.0-0.1 [facility] Basophils/100 WBC Auto (Bld) on 05-07-2024 Basophils/100 WBC (Bld) 0.6 % 0.2-2.0 [facility] Eosinophils/100 WBC Auto (Bl d)on 05-07-2024 Eosinophils/100 WBC (Bld) 3.8 % 0.9-7.0 [facility] Erythrocyte distribution wid th Auto (RBC) [Ratio]on 05-07-2024 Erythrocyte distribution width (RBC) [Ratio] 12.4 % 11.0-15.0 [facility] Estimated glomerular filtrat ion rate (GFR) non- Americanon 05-07-2024 GFR/1.73 sq M.predicted among non-blacks MDRD (S/P/Bld) [Vol rate/Area] 52 mL/min/{1.73_m2} Low >=60 mL/min/1.7 3m 2 [facility] Globulin Calc (S) [Mass/Vol] on 05-07-2024 Globulin (S) [Mass/Vol] 3.7 g/dL [facility] Hematocrit Auto (Bld) [Volum e fraction]on 05-07-2024 Hematocrit (Bld) [Volume fraction] 39.8 % Low 42.0-54.0 [facility] Hemoglobin [Mass/volume] in Bloodon 05-07-2024 Hemoglobin (Bld) [Mass/Vol] 13.8 g/dL Low 14.0-18.0 [facility] INR in Platelet poor plasma by Coagulation assayon 05-07-2024 INR Coag (PPP) [Relative time] 0.96 {INR} [facility] Comment on above: DESIRED INR:2.0-3.0 CONDITIONS NOT LISTED BELOW2.5-3.5 FOR PROSTHETIC HEART VALVE REPLACEMENT2.5-3.5 RECURRENT THROMBOSIS Laboratory - Chemistry and C hemistry - challengeon 05-07-2024 Albumin [Mass/Vol] 3.7 g/dL 3.4-5.0 [facility] ALP [Catalytic activity/Vol] 67 U/L 46-116 [facility] ALT [Catalytic activity/Vol] 26 U/L 16-63 [facility] AST [Catalytic activity/Vol] 19 U/L 15-37 [facility] Bilirubin [Mass/Vol] 0.4 mg/dL 0.2-1.0 [facility] Calcium [Mass/Vol] 9.3 mg/dL 8.5-10.1 [facility] Chloride [Moles/Vol] 104 mmol/L 98-107 [facility] CO2 [Moles/Vol] 27.0 mmol/L 21.0-32.0 [facility] Creatinine [Mass/Vol] 1.38 mg/dL High 0.70-1.30 [facility] GFR/1.73 sq M.predicted MDRD (S/P/Bld) [Vol rate/Area] mL/min/{1.73_m2} >=60 mL/min/1.7 3m 2 [facility] Glucose [Mass/Vol] 111 mg/dL High 74-106 [facility] Natriuretic peptide B (Bld) [Mass/Vol] 87.0 pg/mL <=900.0 [facility] Potassium [Moles/Vol] 4.1 mmol/L 3.5-5.1 [facility] Protein [Mass/Vol] 7.4 g/dL 6.4-8.2 [facility] Sodium [Moles/Vol] 141 mmol/L 136-145 [facility] Urea nitrogen [Mass/Vol] 18.0 mg/dL 7.0-18.0 [facility] Urea nitrogen/Creatinine [Mass ratio] 13.0 mg/mg [facility] Laboratory - Hematology and Cell countson 05-07-2024 Immature granulocytes/100 WBC (Bld) 0.2 % 0.0-0.5 [facility] Leukocytes [#/volume] correc kal for nucleated erythrocytes in Blood by Automated counon 05-07-2024 WBC corrected for nucl RBC Auto (Bld) [#/Vol] 4.7 10 3/uL 4.0-11.0 [facility] Lymphocytes Auto (Bld) [#/Vo l]on 05-07-2024 Lymphocytes (Bld) [#/Vol] 1.6 10 3/uL 1.2-3.8 [facility] Lymphocytes/100 WBC Auto (Bl d)on 05-07-2024 Lymphocytes/100 WBC (Bld) 34.4 % 20.5-60.0 [facility] MCH Auto (RBC) [Entitic mass ]on 05-07-2024 MCH (RBC) [Entitic mass] 30.9 pg 25.9-34.0 [facility] MCHC Auto (RBC) [Mass/Vol]on 05-07-2024 MCHC (RBC) [Mass/Vol] 34.7 g/dL 29.9-35.2 [facility] MCV Auto (RBC) [Entitic vol] on 05-07-2024 MCV (RBC) [Entitic vol] 89.2 fL 80.0-94.0 [facility] Monocytes Auto (Bld) [#/Vol] on 05-07-2024 Monocytes (Bld) [#/Vol] 0.6 10 3/uL 0.3-0.8 [facility] Monocytes/100 WBC Auto (Bld) on 05-07-2024 Monocytes/100 WBC (Bld) 12.4 % High 1.7-12.0 [facility] Neutrophils Auto (Bld) [#/Vo l]on 05-07-2024 Neutrophils (Bld) [#/Vol] 2.3 10 3/uL 1.4-6.5 [facility] Neutrophils/100 WBC Auto (Bl d)on 05-07-2024 Neutrophils/100 WBC (Bld) 48.6 % 43.0-75.0 [facility] No Panel Informationon 05-07 Eosinophils # (Auto) 0.2 10 3/uL 0.0-0.7 [facility] Immature Granulocyte # (Auto) 0.01 10 3/uL 0.00-0.03 [facility] Troponin I High Sensitivity 15.2 pg/mL 4.0-76.1 [facility] Comment on above: CUT-OFF POINTS HAVE [...] (Bld) [Entitic vol] 9.4 fL Low 9.5-13.5 [facility] Platelets Auto (Bld) [#/Vol] on 05-07-2024 Platelets (Bld) [#/Vol] 212 10 3/uL 150-450 [facility] Prothrombin time (PT)on 04-25 PT Coag (PPP) [Time] 10.2 s 9.0-11.6 [facility] RBC Auto (Bld) [#/Vol]on RBC (Bld) [#/Vol] 4.46 10 6/uL Low 4.70-6.10 [facility] Serum or plasma albumin/glob ulin mass ratioon 05-07-2024 Albumin/Globulin [Mass ratio] 1.0 {ratio} [facility] Serum or plasma anion gap de terminationon 05-07-2024 Anion gap [Moles/Vol] 14.1 mmol/L Fi [facility] CT CTA ABD AND PELVISon [...] 03/07/2024 12:12 PM Normal [facility] Basophils Auto (Bld) [#/Vol] on 10-09-2023 Basophils (Bld) [#/Vol] 0.0 10 3/uL 0.0-0.1 [facility] Basophils/100 WBC Auto (Bld) on 10-09-2023 Basophils/100 WBC (Bld) 0.6 % 0.2-2.0 [facility] Eosinophils/100 WBC Auto (Bl d)on 10-09-2023 Eosinophils/100 WBC (Bld) 3.9 % 0.9-7.0 [facility] Erythrocyte distribution wid th Auto (RBC) [Ratio]on 10-09-2023 Erythrocyte distribution width (RBC) [Ratio] 13.2 % 11.0-15.0 [facility] Estimated glomerular filtrat ion rate (GFR) non- Americanon 10-09-2023 GFR/1.73 sq M.predicted among non-blacks MDRD (S/P/Bld) [Vol rate/Area] 45 mL/min/{1.73_m2} >=60 [facility] Globulin Calc (S) [Mass/Vol] on 10-09-2023 Globulin (S) [Mass/Vol] 3.4 g/dL [facility] Hematocrit Auto (Bld) [Volum e fraction]on 10-09-2023 Hematocrit (Bld) [Volume fraction] 36.4 % 42.0-54.0 [facility] Hemoglobin [Mass/volume] in Bloodon 10-09-2023 Hemoglobin (Bld) [Mass/Vol] 12.1 g/dL 14.0-18.0 [facility] Laboratory - Chemistry and C hemistry - challengeon 10-09-2023 Albumin [Mass/Vol] 3.5 g/dL 3.4-5.0 [facility] ALP [Catalytic activity/Vol] 64 U/L 46-116 [facility] ALT [Catalytic activity/Vol] 35 U/L 16-63 [facility] AST [Catalytic activity/Vol] 24 U/L 15-37 [facility] Bilirubin [Mass/Vol] 0.4 mg/dL 0.2-1.0 [facility] Calcium [Mass/Vol] 9.0 mg/dL 8.5-10.1 [facility] Chloride [Moles/Vol] 102 mmol/L 98-107 [facility] CO2 [Moles/Vol] 27.8 mmol/L 21.0-32.0 [facility] Creatinine [Mass/Vol] 1.58 mg/dL 0.70-1.30 [facility] GFR/1.73 sq M.predicted MDRD (S/P/Bld) [Vol rate/Area] 54 mL/min/{1.73_m2} >=60 [facility] Glucose [Mass/Vol] 96 mg/dL 74-106 [facility] Potassium [Moles/Vol] 4.3 mmol/L 3.5-5.1 [facility] Protein [Mass/Vol] 6.9 g/dL 6.4-8.2 [facility] Sodium [Moles/Vol] 136 mmol/L 136-145 [facility] Urea nitrogen [Mass/Vol] 26.0 mg/dL 7.0-18.0 [facility] Urea nitrogen/Creatinine [Mass ratio] 16.5 mg/mg [facility] Laboratory - Hematology and Cell countson 10-09-2023 Immature granulocytes/100 WBC (Bld) 0.6 % 0.0-0.5 [facility] Leukocytes [#/volume] correc kal for nucleated erythrocytes in Blood by Automated counon 10-09-2023 WBC corrected for nucl RBC Auto (Bld) [#/Vol] 5.2 10 3/uL 4.0-11.0 [facility] Lymphocytes Auto (Bld) [#/Vo l]on 10-09-2023 Lymphocytes (Bld) [#/Vol] 1.5 10 3/uL 1.2-3.8 [facility] Lymphocytes/100 WBC Auto (Bl d)on 10-09-2023 Lymphocytes/100 WBC (Bld) 28.9 % 20.5-60.0 [facility] MCH Auto (RBC) [Entitic mass ]on 10-09-2023 MCH (RBC) [Entitic mass] 30.9 pg 25.9-34.0 [facility] MCHC Auto (RBC) [Mass/Vol]on 10-09-2023 MCHC (RBC) [Mass/Vol] 33.2 g/dL 29.9-35.2 [facility] MCV Auto (RBC) [Entitic vol] on 10-09-2023 MCV (RBC) [Entitic vol] 93.1 fL 80.0-94.0 [facility] Monocytes Auto (Bld) [#/Vol] on 10-09-2023 Monocytes (Bld) [#/Vol] 0.8 10 3/uL 0.3-0.8 [facility] Monocytes/100 WBC Auto (Bld) on 10-09-2023 Monocytes/100 WBC (Bld) 16.1 % 1.7-12.0 [facility] Neutrophils Auto (Bld) [#/Vo l]on 10-09-2023 Neutrophils (Bld) [#/Vol] 2.6 10 3/uL 1.4-6.5 [facility] Neutrophils/100 WBC Auto (Bl d)on 10-09-2023 Neutrophils/100 WBC (Bld) 49.9 % 43.0-75.0 [facility] No Panel Informationon 10-08 Eosinophils # (Auto) 0.2 10 3/uL 0.0-0.7 [facility] Immature Granulocyte # (Auto) 0.03 10 3/uL 0.00-0.03 [facility] Platelet mean volume Auto (B ld) [Entitic vol]on 10-09-2023 Platelet mean volume (Bld) [Entitic vol] 9.4 fL 9.5-13.5 [facility] Platelets Auto (Bld) [#/Vol] on 10-09-2023 Platelets (Bld) [#/Vol] 228 10 3/uL 150-450 [facility] RBC Auto (Bld) [#/Vol]on RBC (Bld) [#/Vol] 3.91 10 6/uL 4.70-6.10 [facility] Serum or plasma albumin/glob ulin mass ratioon 10-09-2023 Albumin/Globulin [Mass ratio] 1.0 {ratio} [facility] Serum or plasma anion gap de terminationon 10-09-2023 Anion gap [Moles/Vol] 10.5 mmol/L [facility] Office Visit (Cardiology)on 12-24-2022 Follow-up visit Diagnoses/Problems Assessed Coronary artery disease involving stillaguamish coronary artery of stillaguamish heart without angina pectoris (414.01) (I25.10) Preoperative [...] we can help. You may also call 1-879-NXWR-NOW for free resources and assistance.; Status:Complete - [...] to COPD, hypertension. Patient is not on beta-maryjnae or calcium antagonist however he is on [...] 2012 that has been followed reportedly at [facility] details of which are unknown Pulmonary [...] MG Sublingu (more content not included)... Normal [employer] Tobacco Screening.on 023 Fall risk assessment c) Not medically indicated -[facility] [address] DO Work Phone: Tobacco use status [facility] a) Yes [facility] 250 DO Work Phone: Tobacco Screening. Yes [facility] 250 DO Work Phone: Cardiovasc Arrhythmia Result son 11-02-2022 Cardiovasc Arrhythmia Results Reason For Visit Reason for Visit: Holter Monitor: HECTOR is here for the application of a 48 hour Holter monitor. Ordering Physician: JANINE CUNHA Diagnosis: CAD SINUS PAUSE [facility] equipment agreement signed. HECTOR understands monitor is to be returned on: 11-03-22 Monitor number [id number] applied. Holter monitor returned and downloaded. Procedure [...] symptomatic Diagnosis/Problems Assessed Coronary artery disease involving stillaguamish coronary artery of still[place]am[place] heart without angina pectoris (414.01) (I25.10) Sinus pause (426.6) (I45.5) Future Appointments Date/TimeProviderSpecialt ySite 01/19/2023 02:30 Alok Kirkland [id number] [facility] 2 Jonathan 250 DO Signatures Electronically signed by : Mallory Fan MA; Nov 02 2022 2:10PM EST (Author) Electronically signed by : Mohsen Gonsalves MD; Nov 08 2022 5:34PM EST (Author) Normal [facility] Calcium [Mass/volume] in Ser um or PlasmaOrdered By: Janine Cunha on 10-28-2022 Calcium [Mass/Vol] 9.5 mg/dL 8.6-10.3 [facility] Carbon dioxide, total [Moles /volume] in Serum or PlasmaOrdered By: Janine Cunha on 10-28-2022 CO2 [Moles/Vol] 25.8 mmol/L 21.0-31.0 [facility] Chloride [Moles/volume] in S lisa or PlasmaOrdered By: Janine Cunha on 10-28-2022 Chloride [Moles/Vol] 107 mmol/L 98-107 [facility] Creatinine [Mass/volume] in Serum or PlasmaOrdered By: Janine Cunha on 10-28-2022 Creatinine [Mass/Vol] 1.16 mg/dL 0.70-1.30 [facility] Glucose [Mass/volume] in Ser um or PlasmaOrdered By: Janine Cunha on 10-28-2022 Glucose [Mass/Vol] 100 mg/dL 70-100 [facility] Comment on above: ADA recommended refe rence rangeRandom Glucose Reference Range is dependent on time and content of last meal. Glucose of more than 200 mg/dL in a nonstressed, ambulatory subject supports the diagnosis of Diabetes Mellitus. No Panel InformationOrdered By: Janine Cunha on 10-28-2022 Estimated GFR (CKD-EPI) > 60.0 mL/Min [facility] Creatinine Clearance (Chem N/A [facility] No Panel Informationon 10-28 > 60.0 Normal [facility] [address] DO Work Phone: [phone] 11.6\S\11.6 Normal 6.0-15.0 [facility] 600 DO Work Phone: [phone] 9.5\S\9.5 Normal 8.6-10.3 [facility] 600 DO Work Phone: Comment on above: PERFORMED BY:[facility] [place], [place] [id number] MEDICAL DIRECTORJANETTE DE LA FUENTE M.D. 25.8\S\25.8 Normal 21.0-31.0 [facility] [address] DO Work Phone: [phone] 107\S\107 Normal 98-107 [facility] 600 DO Work Phone: [phone] 4.4\S\4.4 Normal 3.5-5.1 [facility] 600 DO Work Phone: [phone] 140\S\140 Normal 136-145 [facility] 600 DO Work Phone: [phone] 1.16\S\1.16 Normal 0.70-1.30 [facility] 600 DO Work Phone: [phone] 27\S\27 above high threshold 7-25 [facility] 600 DO Work Phone: [phone] 100\S\100 Normal 70-100 [facility] 600 DO Work Phone: Comment on above: Random Glucose Refer ence Range is dependent on time and content of last meal. Glucose of more than 200 mg/dL in a nonstressed, ambulatory subject supports the diagnosis of Diabetes Mellitus. ADA recommended reference range Potassium [Moles/volume] in Serum or PlasmaOrdered By: Janine Cunha on 10-28-2022 Potassium [Moles/Vol] 4.4 mmol/L 3.5-5.1 [facility] Serum or plasma anion gap de terminationOrdered By: Janine Cunha on 10-28-2022 Anion gap [Moles/Vol] 11.6 mmol/L 6.0-15.0 [facility] Sodium [Moles/volume] in Ser um or PlasmaOrdered By: Janine Cunha on 10-28-2022 Sodium [Moles/Vol] 140 mmol/L 136-145 [facility] Urea nitrogen [Mass/volume] in Serum or PlasmaOrdered By: Janine Cunha on 10-28-2022 Urea nitrogen [Mass/Vol] 27 mg/dL 7-25 [facility] Tobacco Screening.on 023 Adult depression screening assessment No [facility] 250 DO Work Phone: Fall risk assessment a) No falls within the last year [facility] 250 DO Work Phone: Tobacco use status [facility] a) Yes [facility] 250 DO Work Phone: Tobacco Screening. Yes [facility] 250 DO Work Phone: Calcium [Mass/volume] in Ser um or PlasmaOrdered By: Rubén Tatum on 10-12-2022 Calcium [Mass/Vol] 9.0 mg/dL 8.6-10.3 [facility] Carbon dioxide, total [Moles /volume] in Serum or PlasmaOrdered By: Rubén Tatum on 10-12-2022 CO2 [Moles/Vol] 25.2 mmol/L 21.0-31.0 [facility] Chloride [Moles/volume] in S lisa or PlasmaOrdered By: Rubén Tatum on 10-12-2022 Chloride [Moles/Vol] 107 mmol/L 98-107 [facility] Creatinine [Mass/volume] in Serum or PlasmaOrdered By: Rubén Tatum on 10-12-2022 Creatinine [Mass/Vol] 1.09 mg/dL 0.70-1.30 [facility] Glucose [Mass/volume] in Ser um or PlasmaOrdered By: Rubén Tatum on 10-12-2022 Glucose [Mass/Vol] 100 mg/dL 74-109 [facility] Comment on above: ADA recommended refe rence rangeRandom Glucose Reference Range is dependent on time and content of last meal. Glucose of more than 200 mg/dL in a nonstressed, ambulatory subject supports the diagnosis of Diabetes Mellitus. Laboratory - Chemistry and C hemistry - challengeOrdered By: Rubén Tatum on 10-12-2022 GFR/1.73 sq M.predicted MDRD (S/P/Bld) [Vol rate/Area] mL/min/{1.73_m2} [facility] Magnesium [Mass/volume] in S lisa or PlasmaOrdered By: Rubén Tatum on 10-12-2022 Magnesium [Mass/Vol] 2.2 mg/dL 1.9-2.7 [facility] Natriuretic peptide B [Mass/ Vol]Ordered By: Rubén Tatum on 10-12-2022 Natriuretic peptide B (Bld) [Mass/Vol] 91.0 pg/mL 5-100 [facility] No Panel InformationOrdered By: Rubén Tatum on 10-12-2022 Pharmacy Creatinine Clearance (Chem 79.69 [facility] Potassium [Moles/volume] in Serum or PlasmaOrdered By: Rubén Tatum on 10-12-2022 Potassium [Moles/Vol] 4.2 mmol/L 3.5-5.1 [facility] Serum or plasma anion gap de terminationOrdered By: Rubén Tatum on 10-12-2022 Anion gap [Moles/Vol] 12.0 mmol/L 6.0-15.0 [facility] Sodium [Moles/volume] in Ser um or PlasmaOrdered By: Rubén Tatum on 10-12-2022 Sodium [Moles/Vol] 140 mmol/L 136-145 [facility] Urea nitrogen [Mass/volume] in Serum or PlasmaOrdered By: Rubén Tatum on 10-12-2022 Urea nitrogen [Mass/Vol] 23 mg/dL 7 [facility] Alanine aminotransferase [En zymatic activity/volume] in Serum or PlasmaOrdered By: Rubén Tatum on 10-11-2022 ALT [Catalytic activity/Vol] 18 U/L 7 [facility] Albumin [Mass/volume] in Ser um or Plasma by Bromocresol green (BCG) dye binding methoOrdered By: Rubén Tatum on 10-11-2022 Albumin BCG dye [Mass/Vol] 3.9 g/dL 3.5-5.7 [facility] Alkaline phosphatase [Enzyma tic activity/volume] in Serum or PlasmaOrdered By: Rubén Tatum on 10-11-2022 ALP [Catalytic activity/Vol] 46 U/L 34-104 [facility] Aspartate aminotransferase [ Enzymatic activity/volume] in Serum or PlasmaOrdered By: Rubén Tatum on 10-11-2022 AST [Catalytic activity/Vol] 30 U/L 13-39 [facility] Basophils Auto (Bld) [#/Vol] Ordered By: Galo Dent on 10-11-2022 Basophils (Bld) [#/Vol] 0.0 10*3/uL 0.0-0.2 [facility] Basophils/100 WBC Auto (Bld) Ordered By: Galo Dent on 10-11-2022 Basophils/100 WBC (Bld) 0.5 % . [facility] Bilirubin.total [Mass/volume ] in Serum or PlasmaOrdered By: Rubén Tatum on 10-11-2022 Bilirubin [Mass/Vol] 0.4 mg/dL 0.3-1.0 [facility] Cholesterol [Mass/volume] in Serum or PlasmaOrdered By: Rubén Tatum on 10-11-2022 Cholesterol [Mass/Vol] 221 mg/dL 140-200 [facility] Comment on above: Chol less than 200 m g/dl low riskChol 201-239 mg/dl borderline riskChol 240 mg/dl and greater high risk Cholesterol in LDL Calc [Mas s/Vol]Ordered By: Rubén Tatum on 10-11-2022 Cholesterol in LDL [Mass/Vol] 149 mg/dL 0-100 [facility] Comment on above: LDL ATP III CLASSIFI CATIONLDL less than 100 mg/dL OptimalLDL 100-129 mg/dL Near or above optimalLDL 130-159 mg/dL Borderline highLDL 160-189 mg/dL HighLDL greater than 189 mg/dL Very high Cholesterol in VLDL Calc [Ma ss/Vol]Ordered By: Rubén Tatum on 10-11-2022 Cholesterol in VLDL [Mass/Vol] 30 mg/dL [facility] Eosinophils Auto (Bld) [#/Vo l]Ordered By: Galo Dent on 10-11-2022 Eosinophils (Bld) [#/Vol] 0.2 10*3/uL 0.0-0.45 [facility] Eosinophils/100 WBC Auto (Bl d)Ordered By: Galo Dent on 10-11-2022 Eosinophils/100 WBC (Bld) 3.7 % . [facility] Erythrocyte distribution wid th Auto (RBC) [Ratio]Ordered By: Galo Dent on 10-11-2022 Erythrocyte distribution width (RBC) [Ratio] 14.9 % 12.0-14.8 [facility] Globulin Calc (S) [Mass/Vol] Ordered By: Rubén Tatum on 10-11-2022 Globulin (S) [Mass/Vol] 2.5 g/dL [facility] Glucose mean value [Mass/vol ume] in Blood Estimated from glycated hemoglobinOrdered By: Galo Dent on 10-11-2022 Average glucose Estimated from glycated hemoglobin (Bld) [Mass/Vol] 120 mg/dL [facility] Hematocrit Auto (Bld) [Volum e fraction]Ordered By: Galo Dent on 10-11-2022 Hematocrit (Bld) [Volume fraction] 37.7 % 38.8-50.0 [facility] Hemoglobin A1c percentageOrd ered By: Galo Dent on 10-11-2022 HbA1c (Bld) [Mass fraction] 5.8 % 4.3-5.6 [facility] Comment on above: Increased risk for d iabetes: 5.7 - 6.4diabetes: >6.4glycemic control for adults with diabetes: <7.0 Hemoglobin [Mass/volume] in BloodOrdered By: Galo Dent on 10-11-2022 Hemoglobin (Bld) [Mass/Vol] 12.7 g/dL 13.0-17.0 [facility] Laboratory - CoagulationOrde red By: Galo Dent on 10-11-2022 PT Coag (PPP) [Time] 11.3 s 9.0-12.9 [facility] Leukocytes [#/volume] correc kal for nucleated erythrocytes in Blood by Automated counOrdered By: Galo Dent on 10-11-2022 WBC corrected for nucl RBC Auto (Bld) [#/Vol] 6.6 10*3/uL 4.1-10.5 [facility] Lymphocytes Auto (Bld) [#/Vo l]Ordered By: Galo Dent on 10-11-2022 Lymphocytes (Bld) [#/Vol] 1.4 10*3/uL 1.00-4.8 [facility] Lymphocytes/100 WBC Auto (Bl d)Ordered By: Galo Dent on 10-11-2022 Lymphocytes/100 WBC (Bld) 21.8 % . [facility] MCH Auto (RBC) [Entitic mass ]Ordered By: Galo Dent on 10-11-2022 MCH (RBC) [Entitic mass] 30.1 pg 27.5-35.2 [facility] MCHC Auto (RBC) [Mass/Vol]Or dered By: Galo Dent on 10-11-2022 MCHC (RBC) [Mass/Vol] 33.7 g/dL 32.5-35.6 [facility] MCV Auto (RBC) [Entitic vol] Ordered By: Galo Dent on 10-11-2022 MCV (RBC) [Entitic vol] 89.4 fL 83.5-101 [facility] Monocytes Auto (Bld) [#/Vol] Ordered By: Galo Dent on 10-11-2022 Monocytes (Bld) [#/Vol] 0.7 10*3/uL 0.0-0.8 [facility] Monocytes/100 WBC Auto (Bld) Ordered By: Galo Dent on 10-11-2022 Monocytes/100 WBC (Bld) 10.2 % . [facility] Neutrophils Auto (Bld) [#/Vo l]Ordered By: Galo Dent on 10-11-2022 Neutrophils (Bld) [#/Vol] 4.2 10*3/uL 1.8-7.7 [facility] Neutrophils/100 WBC Auto (Bl d)Ordered By: Galo Dent on 10-11-2022 Neutrophils/100 WBC (Bld) 63.8 % . [facility] Nucleated erythrocytes [Pres ence] in Blood by Automated countOrdered By: Galo Dent on 10-11-2022 Nucleated RBC Auto Ql (Bld) 0.1 /100{WBC} 0-0.5 [facility] Platelet mean volume Auto (B ld) [Entitic vol]Ordered By: Galo Dent on 10-11-2022 Platelet mean volume (Bld) [Entitic vol] 7.3 fL 6.6-10.1 [facility] Platelet poor plasma interna tional normalized ratio (INR) by coagulation assay (relatOrdered By: Galo Dent on 10-11-2022 INR Coag (PPP) [Relative time] 1.0 {INR} [facility] Comment on above: INR Therapeutic Rang [...] 10-11-2022 Platelets (Bld) [#/Vol] 203 10*3/uL 150-450 [facility] Protein [Mass/volume] in Ser um or PlasmaOrdered By: Rubén Tatum on 10-11-2022 Protein [Mass/Vol] 6.4 g/dL 6.4-8.9 [facility] RBC Auto (Bld) [#/Vol]Ordere d By: Galo Dent on 10-11-2022 RBC (Bld) [#/Vol] 4.21 10*6/uL 3.90-5.60 [facility] Serum or plasma albumin/glob ulin mass ratioOrdered By: Rubén Tatum on 10-11-2022 Albumin/Globulin [Mass ratio] 1.6 {ratio} [facility] Serum or plasma high density lipoprotein (HDL) cholesterol measurementOrdered By: Rubén Tatum on 10-11-2022 Cholesterol in HDL [Mass/Vol] 42 mg/dL 29-71 [facility] Comment on above: HDL CHOL ATP-III CLA SSIFICATION Cardiovascular RiskHDL > or equal to 60 mg/dL LOWHDL < 40 mg/dL HIGH Serum or plasma total choles terol/high density lipoprotein (HDL) cholesterol mass ratOrdered By: Rubén Tatum on 10-11-2022 Cholesterol.total/Chol esterol in HDL [Mass ratio] 5.3 {ratio} <5.0 [facility] Triglyceride [Mass/volume] i n Serum or PlasmaOrdered By: Rubén Tatum on 10-11-2022 Triglyceride [Mass/Vol] 152 mg/dL 0-149 [facility] Comment on above: TRIG ATP III [...] <= 0.01 ng/mL [Mass/Vol] 3965.8 pg/mL 0.0-20.0 [facility] Comment on above: Critical Result : Ca lled to and read back by: HECTOR LOCO at: 10/11/2022 06:45:50 by:[id number] WBC Auto (Bld) [#/Vol]Ordere d By: Galo Dent on 10-11-2022 WBC (Bld) [#/Vol] 6.6 10*3/uL 4.1-10.5 [facility] AMYLASEon 10-10-2022 Amylase [Catalytic activity/Vol] 40 U/L Normal 25-115 [facility] Comment on above: Performed By: #### A MY, CMP, LIPA #### [facility] [address] [address] [address] Carrington Chandler Activated partial thrombopla stin time (aPTT) in platelet poor plasma by coagulation aOrdered By: Galo Dent on 10-10-2022 aPTT Coag (PPP) [Time] 35.9 s 25.1-36.5 [facility] CARDIAC ARLIN ADMITon 023 CK [Catalytic activity/Vol] 530 U/L Critically high 39-308 [facility] Comment on above: Performed By: #### A MY, CMP, LIPA #### [facility] [address] [address] [address] Carrington Chandler CK.MB [Mass/Vol] 60.47 ng/mL Critically high <=3.60 [facility] Comment on above: Performed By: #### A MY, CMP, LIPA #### [facility] [address] [address] [address] Carrington Chandler HSTROP 9166.1 pg/mL Critically high 4.0-76.1 [facility] Comment on above: Result Comment: CUT- OFF POINTS HAVE BEEN ESTABLISHED BASED ON THE FOURTH UNIVERSAL DEFINITIONS OF MYOCARDIAL INFARCTION. THE UPPER REFERENCE LIMIT (URL) OF TROPONIN, DEFINED THE 99TH PERCENTILE OF cTnI DISTRIBUTION IN A REFERENCE POPULATION, HAS BEEN CONFIRMED THE DECISION THRESHOLD FOR [place] DIAGNOSIS. Performed By: #### A MY, CMP, LIPA #### [facility] [address] [address] [address] Carrington Chandler SAULO 108 ng/mL Critically high 16-96 [facility] Comment on above: Performed By: #### A MY, CMP, LIPA #### [facility] [address] [address] [address] Carrington Chandler CBC AUTO DIFFon 10-10-2022 BASO # 0.0 103/ul Normal 0.0-0.1 [facility] Comment on above: Performed By: #### B MP #### [facility] [address] [place] [address] Dr. Carrington Chnadler Basophils/100 WBC (Bld) 0.4 % Normal 0.2-2.0 [facility] Comment on above: Performed By: #### B MP #### [facility] [address] [place] [address] Dr. Carrington Chandler EO # 0.3 103/ul Normal 0.0-0.7 [facility] Comment on above: Performed By: #### B MP #### [facility] [address] [place] [address] Dr. Carrington Chandler Eosinophils/100 WBC (Bld) 4.9 % Normal 0.9-7.0 [facility] Comment on above: Performed By: #### B MP #### [facility] [address] [place] [address] Dr. Carrington Chandler Erythrocyte distribution width (RBC) [Ratio] 13.8 % Normal 11.0-15.0 [facility] Comment on above: Performed By: #### B MP #### [facility] [address] [place] [address] Dr. Carrington Chandler Hematocrit (Bld) [Volume fraction] 38.1 % Critically low 42.0-54.0 [facility] Comment on above: Performed By: #### B MP #### [facility] [address] [place] [address] Dr. Carrington Chandler Hemoglobin (Bld) [Mass/Vol] 13.1 g/dL Critically low 14.0-18.0 [facility] Comment on above: Performed By: #### B MP #### [facility] [address] [place] [address] Dr. Carrington Chandler IG # 0.01 10e3/ul Normal 0.00-0.03 [facility] Comment on above: Performed By: #### B MP #### [facility] [address] [place] [address] Dr. Carrington Chandler IG % 0.2 % Normal 0.0-0.5 [facility] Comment on above: Performed By: #### B MP #### [facility] [address] [place] [address] Dr. Carrington Chandler LYMPH # 1.8 103/ul Normal 1.2-3.8 [facility] Comment on above: Performed By: #### B MP #### [facility] [address] [place] [address] Dr. Carrington Chandler Lymphocytes/100 WBC (Bld) 33.5 % Normal 20.5-60.0 [facility] Comment on above: Performed By: #### B MP #### [facility] [address] [place] [address] Dr. Carrington Chandler MANUAL DIFF REQ NO Normal [facility] Comment on above: Performed By: #### B MP #### [facility] [address] [place] [address] Dr. Carrington Chandler MCH (RBC) [Entitic mass] 30.7 pg Normal 25.9-34.0 [facility] Comment on above: Performed By: #### B MP #### [facility] [address] [place] [address] Dr. Carrington Chandler MCHC (RBC) [Mass/Vol] 34.4 g/dL Normal 29.9-35.2 [facility] Comment on above: Performed By: #### B MP #### [facility] [address] [place] [address] Dr. Carrington Chandler MCV (RBC) [Entitic vol] 89.2 fL Normal 80.0-94.0 [facility] Comment on above: Performed By: #### B MP #### [facility] [address] [place] [address] Dr. Carrington Chandler MONO # 0.6 103/ul Normal 0.3-0.8 [facility] Comment on above: Performed By: #### B MP #### [facility] [address] [place] [address] Dr. Carrington Chandler Monocytes/100 WBC (Bld) 11.8 % Normal 1.7-12.0 [facility] Comment on above: Performed By: #### B MP #### [facility] [address] [address] [address] Carrington Chandler NEUT # 2.6 103/ul Normal 1.4-6.5 [facility] Comment on above: Performed By: #### B MP #### [facility] [address] [address] [address] Carrington Chandler Neutrophils/100 WBC (Bld) 49.2 % Normal 43.0-75.0 [facility] Comment on above: Performed By: #### B MP #### [facility] [address] [address] [address] Carrington Chandler Platelet mean volume (Bld) [Entitic vol] 9.2 fL Critically low 9.5-13.5 [facility] Comment on above: Performed By: #### B MP #### [facility] [address] [address] [address] Carrington Chandler PLT 213 103/ul Normal 150-450 [facility] Comment on above: Performed By: #### B MP #### [facility] [address] [address] [address] Carrington Chandler RBC 4.27 106/ul Critically low 4.70-6.10 [facility] Comment on above: Performed By: #### B MP #### [facility] [id number] Carrington Chandler WBC 5.4 103/ul Normal 4.0-11.0 [facility] Comment on above: Performed By: #### B MP #### [facility] [address] [place] [address] Dr. Carrington Chandler LIPASEon 10-10-2022 Lipase [Catalytic activity/Vol] 212.0 U/L Normal 73.0-393.0 [facility] Comment on above: Performed By: #### A MY, CMP, LIPA #### [facility] [address] [address] [address] Carrington Chandler PROF 14(COMP METB)on 03-18-2 023 Albumin [Mass/Vol] 3.9 g/dL Normal 3.4-5.0 [facility] Comment on above: Performed By: #### A MY, CMP, LIPA #### [facility] [address] [address] [address] Carrington Chandler Albumin/Globulin [Mass ratio] 1.2 {ratio} Normal [facility] Comment on above: Performed By: #### A MY, CMP, LIPA #### [facility] [address] [address] [address] Carrington Chandler ALP [Catalytic activity/Vol] 67 U/L Normal 46-116 [facility] Comment on above: Performed By: #### A MY, CMP, LIPA #### [facility] [address] [place] [address] Dr. Carrington Chandler ALT [Catalytic activity/Vol] 30 U/L Normal 16-63 [facility] Comment on above: Performed By: #### A MY, CMP, LIPA #### [facility] [address] [place] [address] Dr. Carrington Chandler Anion gap [Moles/Vol] 12.8 mmol/L Normal [facility] Comment on above: Performed By: #### A MY, CMP, LIPA #### [facility] [address] [place] [address] Dr. Carrington Chandler AST [Catalytic activity/Vol] 58 U/L Critically high 15-37 [facility] Comment on above: Performed By: #### A MY, CMP, LIPA #### [facility] [address] [place] [address] Dr. Carrington Chandler Bilirubin [Mass/Vol] 0.3 mg/dL Normal 0.2-1.0 [facility] Comment on above: Performed By: #### A MY, CMP, LIPA #### [facility] [address] [place] [address] Dr. Carrington Chandler Calcium [Mass/Vol] 8.9 mg/dL Normal 8.5-10.1 [facility] Comment on above: Performed By: #### A MY, CMP, LIPA #### [facility] [address] [address] [address] Carrington Chandler Chloride [Moles/Vol] 101 mmol/L Normal 98-107 [facility] Comment on above: Performed By: #### A MY, CMP, LIPA #### [facility] [address] [address] [address] Carrington Chandler CO2 [Moles/Vol] 26.0 mmol/L Normal 21.0-32.0 [facility] Comment on above: Performed By: #### A MY, CMP, LIPA #### [facility] [address] [address] [address] Carrington Chandler Creatinine [Mass/Vol] 0.98 mg/dL Normal 0.70-1.30 [facility] Comment on above: Performed By: #### A MY, CMP, LIPA #### [facility] [address] [place] [address] Dr. Carrington Chandler EGFR-AF [place]IZ[place] >60 Normal >=60 [facility] Comment on above: Performed By: #### A MY, CMP, LIPA #### [facility] [address] [place] [address] Dr. Carrington Chandler EGFR-NON AF [place]IZ[place] >60 Normal >=60 [facility] Comment on above: Performed By: #### A MY, CMP, LIPA #### [facility] [address] [place] [address] Dr. Carrington Chandler Globulin (S) [Mass/Vol] 3.2 g/dL Normal [facility] Comment on above: Performed By: #### A MY, CMP, LIPA #### [facility] [address] [place] [address] Dr. Carrington Chandler Glucose [Mass/Vol] 101 mg/dL Normal 74-106 [facility] Comment on above: Performed By: #### A MY, CMP, LIPA #### [facility] [address] [place] [address] Dr. Carrington Chandler Potassium [Moles/Vol] 3.8 mmol/L Normal 3.5-5.1 [facility] Comment on above: Performed By: #### A MY, CMP, LIPA #### [facility] [address] [place] [address] Dr. Carrington Chandler Protein [Mass/Vol] 7.1 g/dL Normal 6.4-8.2 [facility] Comment on above: Performed By: #### A MY, CMP, LIPA #### [facility] [address] [place] [address] Dr. Carrington Chandler Sodium [Moles/Vol] 136 mmol/L Normal 136-145 [facility] Comment on above: Performed By: #### A MY, CMP, LIPA #### [facility] [address] [place] [address] Dr. Carrington Chandler Urea nitrogen [Mass/Vol] 19.0 mg/dL Critically high 7.0-18.0 [facility] Comment on above: Performed By: #### A MY, CMP, LIPA #### [facility] [address] [place] [address] Dr. Carrington Chandler Urea nitrogen/Creatinine [Mass ratio] 19.4 mg/mg Normal [facility] Comment on above: Performed By: #### A MY, CMP, LIPA #### [facility] [address] [place] [address] Dr. Carrington Chandler PROTIMEon 10-10-2022 INR Coag (PPP) [Relative time] {INR} Normal [facility] Comment on above: Performed By: #### B MP #### [facility] [address] [place] [address] Dr. Carrington Chandler INR GUIDELINES SEE BELOW Normal [facility] Comment on above: Result Comment: LYNDON RED INR: 2.0 - 3.0 CONDITIONS NOT LISTED BELOW 2.5 - 3.5 FOR PROSTHETIC HEART VALVE REPLACEMENT 2.5 - 3.5 RECURRENT THROMBOSIS Performed By: #### B MP #### [facility] [address] [place] [address] Dr. Carrington Chandler PT Coag (PPP) [Time] 9.7 s Normal 9.0-11.6 [facility] Comment on above: Performed By: #### B MP #### [facility] [address] [place], [place] [address] Dr. Carrington Chandler PTTon 10-10-2022 aPTT Coag (Bld) [Time] 29.5 s Normal 22.3-36.2 [facility] Comment on above: Performed By: #### B MP #### [facility] [address] [place], [place] [address] Dr. Carrington Chandler XR ABD FLAT UP_PA [...] XIOMARA SCHNEIDER Date: 2022-10-10 00:33 Normal [facility] XR knee RT 3Von 09-09-2022 XR knee RT 3V [facility] [employer] Other XR knee RT 3V [facility] [employer] Other XR knee RT 3V [address] [place] [address] [employer] Other XR knee RT 3V [address] [employer] Other XR knee RT 3V XRay Report [employer] Other XR knee RT 3V Signed [place] [employer] Other XR knee RT 3V Patient: Hector Gaspar MR#: [id number] [employer] Other XR knee RT 3V 187 [employer] Other XR knee RT 3V : 1960 Acct:[id number] [employer] Other XR knee RT 3V Age/Sex: 62 / M ADM Date: 09/09/22 [employer] Other XR knee RT 3V Loc: [facility] Room: Type : REG CLI [employer] Other XR knee RT 3V Attending Dr: Wagner Marrufo DO [employer] Other XR knee RT 3V Copies to: Wagner Marrufo DO [employer] Other XR knee RT 3V Ordering Provider: Judy Marrufo DO [employer] Other XR knee RT 3V Date of Service: 09/09/22 [employer] Other XR knee RT 3V XR/XR knee RT 3V - NOT FOR ER USE: Acute pain of right knee [employer] Other XR knee RT 3V RIGHT KNEE - 3 views [employer] Other XR knee RT 3V CLINICAL HISTORY: Generalized right knee pain for 2 weeks. [employer] Other XR knee RT 3V COMPARISON: None [employer] Other XR knee RT 3V FINDINGS: [employer] Other XR knee RT 3V Small knee joint effusion. Mild degenerative changes without acute bony process. Presumed loose [employer] Other XR knee RT 3V body seen anteriorly within the joint space. [employer] Other XR knee RT 3V X R/XR knee RT 3V - NOT FOR ER USE [employer] Other XR knee RT 3V IMPRESSION: [employer] Other XR knee RT 3V MILD DEGENERATIVE CH ANGES WITHOUT ACUTE BONY PROCESS. [employer] Other XR knee RT 3V Impression dictated by: Parrish Layton Jr., D.O.09/09/2022 3:40 PM [employer] Other XR knee RT 3V Dictation Location: [place] [address] [employer] Other XR knee RT 3V Transcribed By: PWS 09/09/22 1540 [employer] Other XR knee RT 3V Dictated By: Parrish Layton Jr DO 09/09/22 1539 [employer] Other XR knee RT 3V Signed By: [employer] Other XR knee RT 3V 09/09/22 1540 [employer] Other CBC AUTO DIFFon 09-08-2022 BASO # 0.0 103/ul Normal 0.0-0.1 [facility] Comment on above: Performed By: #### C BC #### [facility] [address] [place] [address] Dr. Carrington Chandler Basophils/100 WBC (Bld) 0.4 % Normal 0.2-2.0 [facility] Comment on above: Performed By: #### C BC #### [facility] [address] [place] [address] Dr. Carrington Chandler EO # 0.3 103/ul Normal 0.0-0.7 [facility] Comment on above: Performed By: #### C BC #### [facility] [address] [address] [address] Carrington Chandler Eosinophils/100 WBC (Bld) 4.9 % Normal 0.9-7.0 [facility] Comment on above: Performed By: #### C BC #### [facility] [address] [place] [address] Dr. Carrington Chandler Erythrocyte distribution width (RBC) [Ratio] 14.0 % Normal 11.0-15.0 [facility] Comment on above: Performed By: #### C BC #### [facility] [address] [place] [address] Dr. Carrington Chandler Hematocrit (Bld) [Volume fraction] 36.9 % Critically low 42.0-54.0 [facility] Comment on above: Performed By: #### C BC #### [facility] [address] [place] [address] Dr. Carrington Chandler Hemoglobin (Bld) [Mass/Vol] 12.2 g/dL Critically low 14.0-18.0 [facility] Comment on above: Performed By: #### C BC #### [facility] [address] [place] [address] Dr. Carrington Chandler IG # 0.01 10e3/ul Normal 0.00-0.03 [facility] Comment on above: Performed By: #### C BC #### [facility] [address] [place] [address] Dr. Carrington Chandler IG % 0.2 % Normal 0.0-0.5 [facility] Comment on above: Performed By: #### C BC #### [facility] [address] [place] [address] Dr. Carrington Chandler LYMPH # 1.7 103/ul Normal 1.2-3.8 [facility] Comment on above: Performed By: #### C BC #### [facility] [address] [place] [address] Dr. Carrington Chandler Lymphocytes/100 WBC (Bld) 30.6 % Normal 20.5-60.0 [facility] Comment on above: Performed By: #### C BC #### [facility] [address] [place] [address] Dr. Carrington Chandler MANUAL DIFF REQ NO Normal [facility] Comment on above: Performed By: #### C BC #### [facility] [address] [place] [address] Dr. Carrington Chandler MCH (RBC) [Entitic mass] 30.3 pg Normal 25.9-34.0 [facility] Comment on above: Performed By: #### C BC #### [facility] [address] [address] [address] Carrington Chandler MCHC (RBC) [Mass/Vol] 33.1 g/dL Normal 29.9-35.2 [facility] Comment on above: Performed By: #### C BC #### [facility] [address] [address] [address] Carrington Chandler MCV (RBC) [Entitic vol] 91.6 fL Normal 80.0-94.0 [facility] Comment on above: Performed By: #### C BC #### [facility] [address] [address] [address] Carrington Chandler MONO # 0.6 103/ul Normal 0.3-0.8 [facility] Comment on above: Performed By: #### C BC #### [facility] [address] [address] [address] Carrington Chandler Monocytes/100 WBC (Bld) 9.9 % Normal 1.7-12.0 [facility] Comment on above: Performed By: #### C BC #### [facility] [address] [address] [address] Carrington Chandler NEUT # 3.0 103/ul Normal 1.4-6.5 [facility] Comment on above: Performed By: #### C BC #### [facility] [address] [address] [address] Carrington Chandler Neutrophils/100 WBC (Bld) 54.0 % Normal 43.0-75.0 [facility] Comment on above: Performed By: #### C BC #### [facility] [address] [address] [address] Carrington Chandler Platelet mean volume (Bld) [Entitic vol] 8.9 fL Critically low 9.5-13.5 [facility] Comment on above: Performed By: #### C BC #### [facility] [address] [address] [address] Carrington Chandler PLT 189 103/ul Normal 150-450 [facility] Comment on above: Performed By: #### C BC #### [facility] [address] [address] [address] Carrington Chandler RBC 4.03 106/ul Critically low 4.70-6.10 [facility] Comment on above: Performed By: #### C BC #### [facility] [address] [address] [address] Carrington Chandler WBC 5.5 103/ul Normal 4.0-11.0 [facility] Comment on above: Performed By: #### C BC #### [facility] [address] [address] [address] Crarington Chandler CRPon 09-08-2022 CRP 0.5 mg/dL Normal <=1.0 [facility] Comment on above: Performed By: #### A MY, CMP, LIPA #### [facility] [address] [place] [address] Dr. Carrington Chandler PROF CHEM 8 (BAS METB)on Anion gap [Moles/Vol] 12.7 mmol/L Normal [facility] Comment on above: Performed By: #### A MY, CMP, LIPA #### [facility] [address] [place] [address] Dr. Carrington Chandler Calcium [Mass/Vol] 8.6 mg/dL Normal 8.5-10.1 [facility] Comment on above: Performed By: #### A MY, CMP, LIPA #### [facility] [address] [address] [address] Carrington Chandler Chloride [Moles/Vol] 102 mmol/L Normal 98-107 [facility] Comment on above: Performed By: #### A MY, CMP, LIPA #### [facility] [address] [place] [address] Dr. Carrington Chandler CO2 [Moles/Vol] 27.2 mmol/L Normal 21.0-32.0 [facility] Comment on above: Performed By: #### A MY, CMP, LIPA #### [facility] [address] [place] [address] Dr. Carrington Chandler Creatinine [Mass/Vol] 1.11 mg/dL Normal 0.70-1.30 [facility] Comment on above: Performed By: #### A MY, CMP, LIPA #### [facility] [address] [address] [address] Carringtno Chandler EGFR-AF [place] CITIZ[place] >60 Normal >=60 [facility] Comment on above: Performed By: #### A MY, CMP, LIPA #### [facility] [address] [address] [address] Carrington Chandler EGFR-NON AF [place]IZ[place] >60 Normal >=60 [facility] Comment on above: Performed By: #### A MY, CMP, LIPA #### [facility] [address] [address] [address] Carrington Chandler Glucose [Mass/Vol] 132 mg/dL Critically high 74-106 [facility] Comment on above: Performed By: #### A MY, CMP, LIPA #### [facility] [address] [address] [address] Carrington Chandler Potassium [Moles/Vol] 3.9 mmol/L Normal 3.5-5.1 [facility] Comment on above: Performed By: #### A MY, CMP, LIPA #### [facility] [address] [address] [address] Carrington Chandler Sodium [Moles/Vol] 138 mmol/L Normal 136-145 [facility] Comment on above: Performed By: #### A MY, CMP, LIPA #### [facility] [address] [place] [address] Dr. Carrington Chandler Urea nitrogen [Mass/Vol] 18.0 mg/dL Normal 7.0-18.0 [facility] Comment on above: Performed By: #### A MY, CMP, LIPA #### [facility] [address] [place] [address] Dr. Carrington Chandler Urea nitrogen/Creatinine [Mass ratio] 16.2 mg/mg Normal [facility] Comment on above: Performed By: #### A MY, CMP, LIPA #### [facility] [address] [address] [address] Carrington Chandler US CARR[place] DOP LEG [...] CYNTHIA VASQUEZ Date: 2022-09-07 22:52 Normal [facility] HEMOGLOBINon 08-10-2022 Hemoglobin (Bld) [Mass/Vol] 13.3 g/dL Critically low 14.0-18.0 [facility] Comment on above: Performed By: #### B MP #### [facility] [address] [place] [address] Dr. Carrington Chandler CBC W MANUAL DIFFon 07-11-20 22 ATYPICAL LYMPH # 0.65 103/ul Normal [facility] Comment on above: Performed By: #### A MY, CMP, LIPA #### [facility] [address] [place] [address] Dr. Carrington Chandler ATYPICAL LYMPH % 11 % Normal [facility] Comment on above: Performed By: #### A MY, CMP, LIPA #### [facility] [address] [place] [address] Dr. Carrington Chandler BAND # 0.0 103/ul Normal 0.0-0.3 [facility] Comment on above: Performed By: #### A MY, CMP, LIPA #### [facility] [address] [place] [address] Dr. Carrington Chandler BAND % 0 % Normal 0-5 [facility] Comment on above: Performed By: #### A MY, CMP, LIPA #### [facility] [address] [place] [address] Dr. Carrington Chandler BASOM # 0.00 103/ul Normal 0.00-0.10 [facility] Comment on above: Performed By: #### A MY, CMP, LIPA #### [facility] [address] [place] [address] Dr. Carrington Chandler BASOM % 0.0 % Critically low 0.2-2.0 [facility] Comment on above: Performed By: #### A MY, CMP, LIPA #### [facility] [address] [place] [address] Dr. Carrington Chandler BLAST # Normal [facility] Comment on above: Performed By: #### A MY, CMP, LIPA #### [facility] [address] [place] [address] Dr. Carrington Chandler BLAST % Normal [facility] Comment on above: Performed By: #### A MY, CMP, LIPA #### [facility] [address] [place] [address] Dr. Carrington Chandler CORRECTED WBC Normal 4.0-11.0 [facility] Comment on above: Performed By: #### A MY, CMP, LIPA #### [facility] [address] [place] [address] Dr. Carrington Chandler EOS # 0.00 103/ul Normal 0.00-0.70 [facility] Comment on above: Performed By: #### A MY, CMP, LIPA #### [facility] [address] [place] [address] Dr. Carrington Chandler EOS% 0.0 % Critically low 0.9-7.0 [facility] Comment on above: Performed By: #### A MY, CMP, LIPA #### [facility] [address] [place] [address] Dr. Carrington Chandler HCT 34.7 % Critically low 42.0-54.0 [facility] Comment on above: Performed By: #### A MY, CMP, LIPA #### [facility] [address] [address] [address] Carrington Chandler HGB 11.7 g/dl Critically low 14.0-18.0 [facility] Comment on above: Performed By: #### A MY, CMP, LIPA #### [facility] [address] [address] [address] Carrington Chandler LYMPHM # 0.12 103/ul Critically low 1.20-3.80 [facility] Comment on above: Performed By: #### A MY, CMP, LIPA #### [facility] [address] [place] [address] Dr. Carrington Chandler LYMPHM% 2.0 % Critically low 20.5-60.0 [facility] Comment on above: Performed By: #### A MY, CMP, LIPA #### [facility] [address] [place] [address] Dr. Carrington Chandler MCH 29.9 pg Normal 25.9-34.0 [facility] Comment on above: Performed By: #### A MY, CMP, LIPA #### [facility] [address] [place] [address] Dr. Carrington Chandler MCHC 33.7 g/dl Normal 29.9-35.2 [facility] Comment on above: Performed By: #### A MY, CMP, LIPA #### [facility] [address] [place] [address] Dr. Carrington Chandler MCV 88.7 fL Normal 80.0-94.0 [facility] Comment on above: Performed By: #### A MY, CMP, LIPA #### [facility] [address] [place] [address] Dr. Carrington Chandler METAMYELOCYTE # Normal [facility] Comment on above: Performed By: #### A MY, CMP, LIPA #### [facility] [address] [place] [address] Dr. Carrington Chandler METAMYELOCYTE % Normal [facility] Comment on above: Performed By: #### A MY, CMP, LIPA #### [facility] [address] [address] [address] Carrington Chandler MONOM# 0.00 103/ul Critically low 0.30-0.80 [facility] Comment on above: Performed By: #### A MY, CMP, LIPA #### [facility] [address] [address] [address] Carrington Chandler MONOM% 0.0 % Critically low 1.7-12.0 [facility] Comment on above: Performed By: #### A MY, CMP, LIPA #### [facility] [address] [address] [address] Carrington Chandler MPV 9.4 fL Critically low 9.5-13.5 [facility] Comment on above: Performed By: #### A MY, CMP, LIPA #### [facility] [address] [place] [address] Dr. Carrington Chandler MYELOCYTE # Normal [facility] Comment on above: Performed By: #### A MY, CMP, LIPA #### [facility] [address] [place] [address] Dr. Carrington Chandler MYELOCYTE % Normal [facility] Comment on above: Performed By: #### A MY, CMP, LIPA #### [facility] [address] [place] [address] Dr. Carrington Chandler NRBC Normal [facility] Comment on above: Performed By: #### A MY, CMP, LIPA #### [facility] [address] [place] [address] Dr. Carrington Chandler PLT 160 103/ul Normal 150-450 [facility] Comment on above: Performed By: #### A MY, CMP, LIPA #### [facility] [address] [place] [address] Dr. Carrington Chandler RBC 3.91 106/ul Critically low 4.70-6.10 [facility] Comment on above: Performed By: #### A MY, CMP, LIPA #### [facility] [address] [place] [address] Dr. Carrington Chandler RDW 12.4 % Normal 11.0-15.0 [facility] Comment on above: Performed By: #### A MY, CMP, LIPA #### [facility] [address] [address] [address] Carrington Chandler SEG # 5.13 103/ul Normal 1.40-6.50 [facility] Comment on above: Performed By: #### A MY, CMP, LIPA #### [facility] [address] [address] [address] Carrington Chandler SEG % 87.0 % Critically high 43.0-75.0 [facility] Comment on above: Performed By: #### A MY, CMP, LIPA #### [facility] [address] [place] [address] Dr. Carrington Chandler WBC 5.9 103/ul Normal 4.0-11.0 [facility] Comment on above: Performed By: #### A MY, CMP, LIPA #### [facility] [address] [place] [address] Dr. Carrington Chandler PROF 14(COMP METB)on 022 Albumin [Mass/Vol] 3.0 g/dL Critically low 3.4-5.0 [facility] Comment on above: Performed By: #### C MP #### [facility] [address] [place] [address] Dr. Carrington Chandler Albumin/Globulin [Mass ratio] 0.9 {ratio} Normal [facility] Comment on above: Performed By: #### C MP #### [facility] [address] [place] [address] Dr. Carrington Chandler ALP [Catalytic activity/Vol] 56 U/L Normal 46-116 [facility] Comment on above: Performed By: #### C MP #### [facility] [address] [place] [address] Dr. Carrington Chandler ALT [Catalytic activity/Vol] 21 U/L Normal 16-63 [facility] Comment on above: Performed By: #### C MP #### [facility] [address] [address] [address] Carrington Chandler Anion gap [Moles/Vol] 12.9 mmol/L Normal [facility] Comment on above: Performed By: #### C MP #### [facility] [address] [address] [address] Carrington Chandler AST [Catalytic activity/Vol] 15 U/L Normal 15-37 [facility] Comment on above: Performed By: #### C MP #### [facility] [address] [address] [address] Carrington Chandler Bilirubin [Mass/Vol] 0.2 mg/dL Normal 0.2-1.0 [facility] Comment on above: Performed By: #### C MP #### [facility] [address] [place] [address] Dr. Carrington Chandler Calcium [Mass/Vol] 8.1 mg/dL Critically low 8.5-10.1 [facility] Comment on above: Performed By: #### C MP #### [facility] [address] [place] [address] Dr. Carrington Chandler Chloride [Moles/Vol] 104 mmol/L Normal 98-107 [facility] Comment on above: Performed By: #### C MP #### [facility] [address] [place] [address] Dr. Carrington Chandler CO2 [Moles/Vol] 24.6 mmol/L Normal 21.0-32.0 [facility] Comment on above: Performed By: #### C MP #### [facility] [address] [place] [address] Dr. Carrington Chandler Creatinine [Mass/Vol] 0.88 mg/dL Normal 0.70-1.30 [facility] Comment on above: Performed By: #### C MP #### [facility] [address] [place] [address] Dr. Carrington Chandler EGFR-AF [place] >60 Normal >=60 [facility] Comment on above: Performed By: #### C MP #### [facility] [address] [place] [address] Dr. Carrington Chandler EGFR-NON AF [place] >60 Normal >=60 [facility] Comment on above: Performed By: #### C MP #### [facility] [address] [address] [address] Carrington Chandler Globulin (S) [Mass/Vol] 3.3 g/dL Normal [facility] Comment on above: Performed By: #### C MP #### [facility] [address] [address] [address] Carrington Chandler Glucose [Mass/Vol] 174 mg/dL Critically high 74-106 [facility] Comment on above: Performed By: #### C MP #### [facility] [address] [address] [address] Carrington Chandler Potassium [Moles/Vol] 3.5 mmol/L Normal 3.5-5.1 [facility] Comment on above: Performed By: #### C MP #### [facility] [address] [place] [address] Dr. Carrington Chandler Protein [Mass/Vol] 6.3 g/dL Critically low 6.4-8.2 [facility] Comment on above: Performed By: #### C MP #### [facility] [address] [place] [address] Dr. Carrington Chandler Sodium [Moles/Vol] 138 mmol/L Normal 136-145 [facility] Comment on above: Performed By: #### C MP #### [facility] [address] [address] [address] Carrington Chandler Urea nitrogen [Mass/Vol] 17.0 mg/dL Normal 7.0-18.0 [facility] Comment on above: Performed By: #### C MP #### [facility] [address] [address] [address] Carrington Chandler Urea nitrogen/Creatinine [Mass ratio] 19.3 mg/mg Normal [facility] Comment on above: Performed By: #### C MP #### [facility] [address] [place] [address] Dr. Carrington Chandler CBC AUTO DIFFon 07-10-2022 BASO # 0.0 103/ul Normal 0.0-0.1 [facility] Comment on above: Performed By: #### B MP #### [facility] [address] [address] [address] Carrington Chandler Basophils/100 WBC (Bld) 0.2 % Normal 0.2-2.0 [facility] Comment on above: Performed By: #### B MP #### [facility] [address] [address] [address] Carrington Chandler EO # 0.1 103/ul Normal 0.0-0.7 [facility] Comment on above: Performed By: #### B MP #### [facility] [address] [address] [address] Carrington Chandler Eosinophils/100 WBC (Bld) 2.3 % Normal 0.9-7.0 [facility] Comment on above: Performed By: #### B MP #### [facility] [address] [place] [address] Dr. Carrington Chandler Erythrocyte distribution width (RBC) [Ratio] 12.5 % Normal 11.0-15.0 [facility] Comment on above: Performed By: #### B MP #### [facility] [address] [place] [address] Dr. Carrington Chandler Hematocrit (Bld) [Volume fraction] 36.8 % Critically low 42.0-54.0 [facility] Comment on above: Performed By: #### B MP #### [facility] [address] [place] [address] Dr. Carrington Chandler Hemoglobin (Bld) [Mass/Vol] 12.3 g/dL Critically low 14.0-18.0 [facility] Comment on above: Performed By: #### B MP #### [facility] [address] [place] [address] Dr. Carrington Chandler IG # 0.01 10e3/ul Normal 0.00-0.03 [facility] Comment on above: Performed By: #### B MP #### [facility] [address] [place] [address] Dr. Carrington Chandler IG % 0.2 % Normal 0.0-0.5 [facility] Comment on above: Performed By: #### B MP #### [facility] [address] [address] [address] Carrington Chandler LYMPH # 1.5 103/ul Normal 1.2-3.8 [facility] Comment on above: Performed By: #### B MP #### [facility] [address] [address] [address] Carrington Chandler Lymphocytes/100 WBC (Bld) 34.7 % Normal 20.5-60.0 [facility] Comment on above: Performed By: #### B MP #### [facility] [address] [place] [address] Dr. Carrington Chandler MANUAL DIFF REQ NO Normal [facility] Comment on above: Performed By: #### B MP #### [facility] [address] [place] [address] Dr. Carrington Chandler MCH (RBC) [Entitic mass] 29.8 pg Normal 25.9-34.0 [facility] Comment on above: Performed By: #### B MP #### [facility] [address] [place] [address] Dr. Carrington Chandler MCHC (RBC) [Mass/Vol] 33.4 g/dL Normal 29.9-35.2 [facility] Comment on above: Performed By: #### B MP #### [facility] [address] [place] [address] Dr. Carrington Chandler MCV (RBC) [Entitic vol] 89.1 fL Normal 80.0-94.0 [facility] Comment on above: Performed By: #### B MP #### [facility] [address] [place] [address] Dr. Carrington Chandler MONO # 0.5 103/ul Normal 0.3-0.8 [facility] Comment on above: Performed By: #### B MP #### [facility] [address] [place] [address] Dr. Carrington Chandler Monocytes/100 WBC (Bld) 11.0 % Normal 1.7-12.0 [facility] Comment on above: Performed By: #### B MP #### [facility] [address] [address] [address] Carrington Chandler NEUT # 2.2 103/ul Normal 1.4-6.5 [facility] Comment on above: Performed By: #### B MP #### [facility] [address] [address] [address] Carrington Chandler Neutrophils/100 WBC (Bld) 51.6 % Normal 43.0-75.0 [facility] Comment on above: Performed By: #### B MP #### [facility] [address] [place] [address] Dr. Carrington Chandler Platelet mean volume (Bld) [Entitic vol] 9.0 fL Critically low 9.5-13.5 [facility] Comment on above: Performed By: #### B MP #### [facility] [address] [place] [address] Dr. Carrington Chandler PLT 147 103/ul Critically low 150-450 [facility] Comment on above: Performed By: #### B MP #### [facility] [address] [place] [address] Dr. Carrington Chandler RBC 4.13 106/ul Critically low 4.70-6.10 [facility] Comment on above: Performed By: #### B MP #### [facility] [address] [place] [address] Dr. Carrington Chandler WBC 4.4 103/ul Normal 4.0-11.0 [facility] Comment on above: Performed By: #### B MP #### [facility] [address] [place] [address] Dr. Carrington Chandler CULTURE SPUTUMon 07-10-2022 CULTURE SPUTUM Culture Observations : NORMAL RESPIRATORY SANDY. Normal [facility] Comment on above: Performed By: #### C MP #### [facility] [address] [place] [address] Dr. Carrington Chandler MAGNESIUMon 07-10-2022 Magnesium [Mass/Vol] 2.0 mg/dL Normal 1.8-2.4 [facility] Comment on above: Performed By: #### C MP #### [facility] [address] [address] [address] Carrington Chandler PROF 14(COMP METB)on 022 Albumin [Mass/Vol] 2.8 g/dL Critically low 3.4-5.0 [facility] Comment on above: Performed By: #### B MP #### [facility] [address] [place] [address] Dr. Carrington Chandler Albumin/Globulin [Mass ratio] 0.8 {ratio} Normal [facility] Comment on above: Performed By: #### B MP #### [facility] [address] [place] [address] Dr. Carrington Chandler ALP [Catalytic activity/Vol] 55 U/L Normal 46-116 [facility] Comment on above: Performed By: #### B MP #### [facility] [address] [place] [address] Dr. Carrington Chandler ALT [Catalytic activity/Vol] 22 U/L Normal 16-63 [facility] Comment on above: Performed By: #### B MP #### [facility] [address] [place] [address] Dr. Carrington Chandler Anion gap [Moles/Vol] 10.3 mmol/L Normal [facility] Comment on above: Performed By: #### B MP #### [facility] [address] [place] [address] Dr. Carrington Chandler AST [Catalytic activity/Vol] 22 U/L Normal 15-37 [facility] Comment on above: Performed By: #### B MP #### [facility] [address] [place] [address] Dr. Carrington Chandler Bilirubin [Mass/Vol] 0.2 mg/dL Normal 0.2-1.0 [facility] Comment on above: Performed By: #### B MP #### [facility] [address] [place] [address] Dr. Carrington hCandler Calcium [Mass/Vol] 8.0 mg/dL Critically low 8.5-10.1 [facility] Comment on above: Performed By: #### B MP #### [facility] [address] [address] [address] Carrington Chandler Chloride [Moles/Vol] 105 mmol/L Normal 98-107 [facility] Comment on above: Performed By: #### B MP #### [facility] [address] [address] [address] Carrington Chandler CO2 [Moles/Vol] 28.1 mmol/L Normal 21.0-32.0 [facility] Comment on above: Performed By: #### B MP #### [facility] [address] [place] [address] Dr. Carrington Chandler Creatinine [Mass/Vol] 0.89 mg/dL Normal 0.70-1.30 [facility] Comment on above: Performed By: #### B MP #### [facility] [address] [place] [address] Dr. Carrington Chandler EGFR-AF [place] >60 Normal >=60 [facility] Comment on above: Performed By: #### B MP #### [facility] [address] [place] [address] Dr. Carrington Chandler EGFR-NON AF [place] >60 Normal >=60 [facility] Comment on above: Performed By: #### B MP #### [facility] [address] [place] [address] Dr. Carrington Chandler Globulin (S) [Mass/Vol] 3.7 g/dL Normal [facility] Comment on above: Performed By: #### B MP #### [facility] [address] [address] [address] Carrington Chandler Glucose [Mass/Vol] 124 mg/dL Critically high 74-106 [facility] Comment on above: Performed By: #### B MP #### [facility] [address] [place] [address] Dr. Carrington Chandler Potassium [Moles/Vol] 3.4 mmol/L Critically low 3.5-5.1 [facility] Comment on above: Performed By: #### B MP #### [facility] [address] [place] [address] Dr. Carrington Chandler Protein [Mass/Vol] 6.5 g/dL Normal 6.4-8.2 [facility] Comment on above: Performed By: #### B MP #### [facility] [address] [place] [address] Dr. Carrington Chandler Sodium [Moles/Vol] 140 mmol/L Normal 136-145 [facility] Comment on above: Performed By: #### B MP #### [facility] [address] [place] [address] Dr. Carrington Chandler Urea nitrogen [Mass/Vol] 15.0 mg/dL Normal 7.0-18.0 [facility] Comment on above: Performed By: #### B MP #### [facility] [address] [place] [address] Dr. Carrington Chandler Urea nitrogen/Creatinine [Mass ratio] 16.9 mg/mg Normal [facility] Comment on above: Performed By: #### B MP #### [facility] [address] [place] [address] Dr. Carrington Chandler CBC AUTO DIFFon 07-09-2022 BASO # 0.0 103/ul Normal 0.0-0.1 [facility] Comment on above: Performed By: #### A MY, CMP, LIPA #### [facility] [address] [place] [address] Dr. Carringotn Chandler Basophils/100 WBC (Bld) 0.2 % Normal 0.2-2.0 [facility] Comment on above: Performed By: #### A MY, CMP, LIPA #### [facility] [address] [place] [address] Dr. Carrington Chandler EO # 0.1 103/ul Normal 0.0-0.7 [facility] Comment on above: Performed By: #### A MY, CMP, LIPA #### [facility] [address] [place] [address] Dr. Carrington Chandler Eosinophils/100 WBC (Bld) 1.9 % Normal 0.9-7.0 [facility] Comment on above: Performed By: #### A MY, CMP, LIPA #### [facility] [address] [place] [address] Dr. Carrington Chandler Erythrocyte distribution width (RBC) [Ratio] 12.6 % Normal 11.0-15.0 [facility] Comment on above: Performed By: #### A MY, CMP, LIPA #### [facility] [address] [place] [address] Dr. Carrington Chandler Hematocrit (Bld) [Volume fraction] 38.8 % Critically low 42.0-54.0 [facility] Comment on above: Performed By: #### A MY, CMP, LIPA #### [facility] [address] [place] [address] Dr. Carrington Chandler Hemoglobin (Bld) [Mass/Vol] 12.9 g/dL Critically low 14.0-18.0 [facility] Comment on above: Performed By: #### A MY, CMP, LIPA #### [facility] [address] [place] [address] Dr. Carrington Chandler IG # 0.01 10e3/ul Normal 0.00-0.03 [facility] Comment on above: Performed By: #### A MY, CMP, LIPA #### [facility] [address] [place] [address] Dr. Carrington Chandler IG % 0.2 % Normal 0.0-0.5 [facility] Comment on above: Performed By: #### A MY, CMP, LIPA #### [facility] [address] [place] [address] Dr. Carrington Chandler LYMPH # 1.7 103/ul Normal 1.2-3.8 [facility] Comment on above: Performed By: #### A MY, CMP, LIPA #### [facility] [address] [place] [address] Dr. Carrington Chandler Lymphocytes/100 WBC (Bld) 34.7 % Normal 20.5-60.0 [facility] Comment on above: Performed By: #### A MY, CMP, LIPA #### [facility] [address] [place] [address] Dr. Carrington Chandler MANUAL DIFF REQ NO Normal [facility] Comment on above: Performed By: #### A MY, CMP, LIPA #### [facility] [address] [place] [address] Dr. Carrington Chandler MCH (RBC) [Entitic mass] 29.9 pg Normal 25.9-34.0 [facility] Comment on above: Performed By: #### A MY, CMP, LIPA #### [facility] [address] [place] [address] Dr. Carrington Chandler MCHC (RBC) [Mass/Vol] 33.2 g/dL Normal 29.9-35.2 [facility] Comment on above: Performed By: #### A MY, CMP, LIPA #### [facility] [address] [place] [address] Dr. Carrington Chandler MCV (RBC) [Entitic vol] 90.0 fL Normal 80.0-94.0 [facility] Comment on above: Performed By: #### A MY, CMP, LIPA #### [facility] [address] [place] [address] Dr. Carrington Chandler MONO # 0.5 103/ul Normal 0.3-0.8 [facility] Comment on above: Performed By: #### A MY, CMP, LIPA #### [facility] [address] [place] [address] Dr. Carrington Chandler Monocytes/100 WBC (Bld) 10.4 % Normal 1.7-12.0 [facility] Comment on above: Performed By: #### A MY, CMP, LIPA #### [facility] [address] [place] [address] Dr. Carrington Chandler NEUT # 2.5 103/ul Normal 1.4-6.5 [facility] Comment on above: Performed By: #### A MY, CMP, LIPA #### [facility] [address] [place] [address] Dr. Carrignton Chandler Neutrophils/100 WBC (Bld) 52.6 % Normal 43.0-75.0 [facility] Comment on above: Performed By: #### A MY, CMP, LIPA #### [facility] [address] [address] [address] Carrington Chandler Platelet mean volume (Bld) [Entitic vol] 9.0 fL Critically low 9.5-13.5 [facility] Comment on above: Performed By: #### A MY, CMP, LIPA #### [facility] [address] [address] [address] Carrington Chandler PLT 155 103/ul Normal 150-450 [facility] Comment on above: Performed By: #### A MY, CMP, LIPA #### [facility] [address] [address] [address] Carrington Chandler RBC 4.31 106/ul Critically low 4.70-6.10 [facility] Comment on above: Performed By: #### A MY, CMP, LIPA #### [facility] [address] [address] [address] Carrington Chandler WBC 4.8 103/ul Normal 4.0-11.0 [facility] Comment on above: Performed By: #### A MY, CMP, LIPA #### [facility] [address] [address] [address] Carrington Chandler Covid-19 PCR ([facility])on 06-25 SARS-CoV-2 (COVID-19) RNA CHARLIE+probe Ql (Unsp spec) Not detected Normal NOT DETECTED [facility] Comment on above: Result Comment: When [...] for this test is supported by the [employer] of [employer] and Human Service's declaration that [...] used). Performed By: #### C MP #### [facility] [address] [address] [address] Carrington Chandler ER URINE PROFILEon 2 Bilirubin Ql (U) Negative Normal NEGATIVE [facility] Comment on above: Performed By: #### C MP #### [facility] [address] [place] [address] Dr. Carrington Chandler Clarity (U) CLEAR Normal CLEAR [facility] Comment on above: Performed By: #### C MP #### [facility] [address] [address] [address] Carrington Chandler Color (U) LT. YELLOW Normal YELLOW [facility] Comment on above: Performed By: #### C MP #### [facility] [address] [place] [address] Dr. Carrington Chandler ERUAHD A micrscopic examina tion will be performed if indicated. Normal [facility] Comment on above: Performed By: #### C MP #### [facility] [address] [place] [address] Dr. Carrington Chandler Glucose Ql (U) Negative Normal NEGATIVE [facility] Comment on above: Performed By: #### C MP #### [facility] [address] [place] [address] Dr. Carrington Chandler Hemoglobin Ql (U) Negative Normal NEGATIVE [facility] Comment on above: Performed By: #### C MP #### [facility] [address] [place] [address] Dr. Carrington Chandler Ketones Ql (U) Negative Normal NEGATIVE [facility] Comment on above: Performed By: #### C MP #### [facility] [address] [place] [address] Dr. Carrington Chandler LEUKOCYTES Negative Normal NEGATIVE [facility] Comment on above: Performed By: #### C MP #### [facility] [address] [place] [address] Dr. Carrington Chandler Nitrite Ql (U) Negative Normal NEGATIVE [facility] Comment on above: Performed By: #### C MP #### [facility] [address] [address] [address] Carrington Chandler pH (U) 6.0 [pH] Normal 5-9 [facility] Comment on above: Performed By: #### C MP #### [facility] [address] [address] [address] Carrington Chandler SPEC GRAVITY 1.010 Normal 1.005-<=1. 025 [facility] Comment on above: Performed By: #### C MP #### [facility] [address] [address] [address] Carrington Chandler UA PROTEIN Negative Normal NEGATIVE/ TRACE [facility] Comment on above: Performed By: #### C MP #### [facility] [address] [place] [address] Dr. Carrington Chandler UR MICRO IND NOT INDICATED Normal [facility] Comment on above: Performed By: #### C MP #### [facility] [address] [address] [address] Carrington Chandler Urobilinogen Qn (U) 0.2 {Lars'U}/dL Normal 0.2 - 1. 0 [facility] Comment on above: Performed By: #### C MP #### [facility] [address] [place] [address] Dr. Carrington Chandler PROF CHEM 8 (BAS METB)on Anion gap [Moles/Vol] 6.6 mmol/L Normal [facility] Comment on above: Performed By: #### B MP #### [facility] [address] [place] [address] Dr. Carrington Chandler Calcium [Mass/Vol] 8.2 mg/dL Critically low 8.5-10.1 [facility] Comment on above: Performed By: #### B MP #### [facility] [address] [place] [address] Dr. Carrington Chandler Chloride [Moles/Vol] 102 mmol/L Normal 98-107 [facility] Comment on above: Performed By: #### B MP #### [facility] [address] [address] [address] Carrington Chandler CO2 [Moles/Vol] 31.2 mmol/L Normal 21.0-32.0 [facility] Comment on above: Performed By: #### B MP #### [facility] [address] [address] [address] Carrington Chandler Creatinine [Mass/Vol] 0.90 mg/dL Normal 0.70-1.30 [facility] Comment on above: Performed By: #### B MP #### [facility] [address] [address] [address] Carrington Chandler EGFR-AF [place] >60 Normal >=60 [facility] Comment on above: Performed By: #### B MP #### [facility] [address] [place] [address] Dr. Carrington Chandler EGFR-NON AF [place] >60 Normal >=60 [facility] Comment on above: Performed By: #### B MP #### [facility] [address] [place] [address] Dr. Carrington Chandler Glucose [Mass/Vol] 100 mg/dL Normal 74-106 [facility] Comment on above: Performed By: #### B MP #### [facility] [address] [place] [address] Dr. Carrington Chandler Potassium [Moles/Vol] 3.8 mmol/L Normal 3.5-5.1 [facility] Comment on above: Performed By: #### B MP #### [facility] [address] [address] [address] Carrington Chandler Sodium [Moles/Vol] 136 mmol/L Normal 136-145 [facility] Comment on above: Performed By: #### B MP #### [facility] [address] [place] [address] Dr. Carrington Chandler Urea nitrogen [Mass/Vol] 16.0 mg/dL Normal 7.0-18.0 [facility] Comment on above: Performed By: #### B MP #### [facility] [address] [place] [address] Dr. Carrington Chandler Urea nitrogen/Creatinine [Mass ratio] 17.8 mg/mg Normal [facility] Comment on above: Performed By: #### B MP #### [facility] [address] [place] [address] Dr. Carrington Chandler XR CHEST 1 Von [...] TEE LEWIS Date: 2022-07-09 20:51 Normal [facility] AMYLASEon 07-08-2022 Amylase [Catalytic activity/Vol] 40 U/L Normal 25-115 [facility] Comment on above: Performed By: #### A MY, CMP, LIPA #### [facility] [address] [place] [address] Dr. Carrington Chandler CBC AUTO DIFFon 07-08-2022 BASO # 0.0 103/ul Normal 0.0-0.1 [facility] Comment on above: Performed By: #### C BC #### [facility] [address] [place] [address] Dr. Carrington Chandler Basophils/100 WBC (Bld) 0.3 % Normal 0.2-2.0 [facility] Comment on above: Performed By: #### C BC #### [facility] [address] [place] [address] Dr. Carrington Chandler EO # 0.1 103/ul Normal 0.0-0.7 [facility] Comment on above: Performed By: #### C BC #### [facility] [address] [place] [address] Dr. Carrington Chandler Eosinophils/100 WBC (Bld) 1.2 % Normal 0.9-7.0 [facility] Comment on above: Performed By: #### C BC #### [facility] [address] [place] [address] Dr. Carrington Chandler Erythrocyte distribution width (RBC) [Ratio] 12.9 % Normal 11.0-15.0 [facility] Comment on above: Performed By: #### C BC #### [facility] [address] [place] [address] Dr. Carrington Chandler Hematocrit (Bld) [Volume fraction] 43.2 % Normal 42.0-54.0 [facility] Comment on above: Performed By: #### C BC #### [facility] [address] [place] [address] Dr. Carrington Chandler Hemoglobin (Bld) [Mass/Vol] 14.4 g/dL Normal 14.0-18.0 [facility] Comment on above: Performed By: #### C BC #### [facility] [address] [place] [address] Dr. Carrington Chandler IG # 0.02 10e3/ul Normal 0.00-0.03 [facility] Comment on above: Performed By: #### C BC #### [facility] [address] [place] [address] Dr. Carrington Chandler IG % 0.3 % Normal 0.0-0.5 [facility] Comment on above: Performed By: #### C BC #### [facility] [address] [place] [address] Dr. Carrington Chandler LYMPH # 1.6 103/ul Normal 1.2-3.8 [facility] Comment on above: Performed By: #### C BC #### [facility] [address] [place] [address] Dr. Carrington Chandler Lymphocytes/100 WBC (Bld) 24.0 % Normal 20.5-60.0 [facility] Comment on above: Performed By: #### C BC #### [facility] [address] [place] [address] Dr. Carrington Chandler MANUAL DIFF REQ NO Normal [facility] Comment on above: Performed By: #### C BC #### [facility] [address] [place] [address] Dr. Carrington Chandler MCH (RBC) [Entitic mass] 30.2 pg Normal 25.9-34.0 [facility] Comment on above: Performed By: #### C BC #### [facility] [address] [place] [address] Dr. Carrington Chandler MCHC (RBC) [Mass/Vol] 33.3 g/dL Normal 29.9-35.2 [facility] Comment on above: Performed By: #### C BC #### [facility] [address] [place] [address] Dr. Carrington Chandler MCV (RBC) [Entitic vol] 90.6 fL Normal 80.0-94.0 [facility] Comment on above: Performed By: #### C BC #### [facility] [address] [place] [address] Dr. Carrington Chandler MONO # 0.6 103/ul Normal 0.3-0.8 [facility] Comment on above: Performed By: #### C BC #### [facility] [address] [place] [address] Dr. Carrington Chandler Monocytes/100 WBC (Bld) 9.4 % Normal 1.7-12.0 [facility] Comment on above: Performed By: #### C BC #### [facility] [address] [place] [address] Dr. Carrington Chandler NEUT # 4.4 103/ul Normal 1.4-6.5 [facility] Comment on above: Performed By: #### C BC #### [facility] [address] [place] [address] Dr. Carrington Chandler Neutrophils/100 WBC (Bld) 64.8 % Normal 43.0-75.0 [facility] Comment on above: Performed By: #### C BC #### [facility] [address] [place] [address] Dr. Carrington Chandler Platelet mean volume (Bld) [Entitic vol] 9.5 fL Normal 9.5-13.5 [facility] Comment on above: Performed By: #### C BC #### [facility] [address] [place] [address] Dr. Carrington Chandler PLT 174 103/ul Normal 150-450 [facility] Comment on above: Performed By: #### C BC #### [facility] [address] [place], [place] [address] Dr. Carrington Chandler RBC 4.77 106/ul Normal 4.70-6.10 [facility] Comment on above: Performed By: #### C BC #### [facility] [address] [place], [place] [address] Dr. Carrington Chandler WBC 6.7 103/ul Normal 4.0-11.0 [facility] Comment on above: Performed By: #### C BC #### [facility] [address] [place], [place] [address] Dr. Carrington Chandler Covid-19 PCR ([facility])on 06-25 SARS-CoV-2 (COVID-19) RNA CHARLIE+probe Ql (Unsp spec) Not detected Normal NOT DETECTED [facility] Comment on above: Result Comment: When [...] for this test is supported by the [employer] and Human Service's declaration that [...] used). Performed By: #### B MP #### [facility] [address] [id number] Carrington Chandler INFLUENZA A AND B AGon 07-08 INFLUANEGH SEE BELOW Normal [facility] Comment on above: Result Comment: Nega tive for Flu A protein angiten. Infection due to Flu A cannot be ruled out. Flu A angiten in the sample may be below the detection limit of the test. Performed By: #### B MP #### [facility] [address] [place] [address] [facility] SEE BELOW Normal [facility] Comment on above: Result Comment: Nega tive for Flu B protein antigen. Infection due to Flu B cannot be ruled out. Flu B antigen in the sample may be below the detection limit of the test. Performed By: #### B MP #### [facility] [address] [place] [address] Dr. Carrington Chandler INFLUENZA A AG Negative Normal NEGATIVE SEE COMMENT [facility] Comment on above: Performed By: #### B MP #### [facility] [address] [place] [address] Dr. Carrington Chandler INFLUENZA B AG Negative Normal NEGATIVE SEE COMMENT [facility] Comment on above: Performed By: #### B MP #### [facility] [address] [place] [address] Dr. Carrington Chandler INTERNAL CONTROLS Within Normal Limits Normal Wi thin Normal Limits [facility] Comment on above: Performed By: #### B MP #### [facility] [address] [place] [address] Dr. Carrington Chandler LIPASEon 07-08-2022 Lipase [Catalytic activity/Vol] 195.0 U/L Normal 73.0-393.0 [facility] Comment on above: Performed By: #### A MY, CMP, LIPA #### [facility] [address] [place] [address] Dr. Carrington Chandler PROF 14(COMP METB)on 022 Albumin [Mass/Vol] 3.4 g/dL Normal 3.4-5.0 [facility] Comment on above: Performed By: #### A MY, CMP, LIPA #### [facility] [address] [place] [address] Dr. Carrington Chandler Albumin/Globulin [Mass ratio] 0.8 {ratio} Normal [facility] Comment on above: Performed By: #### A MY, CMP, LIPA #### [facility] [address] [place] [address] Dr. Carrington Chandler ALP [Catalytic activity/Vol] 61 U/L Normal 46-116 [facility] Comment on above: Performed By: #### A MY, CMP, LIPA #### [facility] [address] [address] [address] Carrington Chandler ALT [Catalytic activity/Vol] 26 U/L Normal 16-63 [facility] Comment on above: Performed By: #### A MY, CMP, LIPA #### [facility] [address] [address] [address] Carrington Chandler Anion gap [Moles/Vol] 11.0 mmol/L Normal [facility] Comment on above: Performed By: #### A MY, CMP, LIPA #### [facility] [address] [place] [address] Dr. Carrington Chandler AST [Catalytic activity/Vol] 30 U/L Normal 15-37 [facility] Comment on above: Performed By: #### A MY, CMP, LIPA #### [facility] [address] [place] [address] Dr. Carrington Chandler Bilirubin [Mass/Vol] 0.3 mg/dL Normal 0.2-1.0 [facility] Comment on above: Performed By: #### A MY, CMP, LIPA #### [facility] [address] [place] [address] Dr. Carrington Chandler Calcium [Mass/Vol] 8.4 mg/dL Critically low 8.5-10.1 [facility] Comment on above: Performed By: #### A MY, CMP, LIPA #### [facility] [address] [place] [address] Dr. Carrington Chandler Chloride [Moles/Vol] 102 mmol/L Normal 98-107 [facility] Comment on above: Performed By: #### A MY, CMP, LIPA #### [facility] [address] [place] [address] Dr. Carrington Chandler CO2 [Moles/Vol] 28.1 mmol/L Normal 21.0-32.0 [facility] Comment on above: Performed By: #### A MY, CMP, LIPA #### [facility] [address] [address] [address] Carrington Chandler Creatinine [Mass/Vol] 0.99 mg/dL Normal 0.70-1.30 [facility] Comment on above: Performed By: #### A MY, CMP, LIPA #### [facility] [address] [address] [address] Carrington Chandler EGFR-AF [place] >60 Normal >=60 [facility] Comment on above: Performed By: #### A MY, CMP, LIPA #### [facility] [address] [address] [address] Carrington Chandler EGFR-NON AF [place] >60 Normal >=60 [facility] Comment on above: Performed By: #### A MY, CMP, LIPA #### [facility] [address] [address] [address] Carrington Chandler Globulin (S) [Mass/Vol] 4.3 g/dL Normal [facility] Comment on above: Performed By: #### A MY, CMP, LIPA #### [facility] [address] [address] [address] Carrington Chandler Glucose [Mass/Vol] 107 mg/dL Critically high 74-106 [facility] Comment on above: Performed By: #### A MY, CMP, LIPA #### [facility] [address] [address] [address] Carrington Chandler Potassium [Moles/Vol] 4.1 mmol/L Normal 3.5-5.1 [facility] Comment on above: Performed By: #### A MY, CMP, LIPA #### [facility] [address] [address] [address] Carrington Chandler Protein [Mass/Vol] 7.7 g/dL Normal 6.4-8.2 [facility] Comment on above: Performed By: #### A MY, CMP, LIPA #### [facility] [address] [address] [address] Carrington hCandler Sodium [Moles/Vol] 137 mmol/L Normal 136-145 [facility] Comment on above: Performed By: #### A MY, CMP, LIPA #### [facility] [address] [place] [address] Dr. Carrington Chandler Urea nitrogen [Mass/Vol] 23.0 mg/dL Critically high 7.0-18.0 [facility] Comment on above: Performed By: #### A MY, CMP, LIPA #### [facility] [address] [place] [address] Dr. Carrington Chandler Urea nitrogen/Creatinine [Mass ratio] 23.2 mg/mg Normal [facility] Comment on above: Performed By: #### A MY, CMP, LIPA #### [facility] [address] [place] [address] Dr. Carrington Chandler CBC AUTO DIFFon 07-03-2022 BASO # 0.0 103/ul Normal 0.0-0.1 [facility] Comment on above: Performed By: #### C MP #### [facility] [address] [place] [address] Dr. Carrington Chandler Basophils/100 WBC (Bld) 0.5 % Normal 0.2-2.0 [facility] Comment on above: Performed By: #### C MP #### [facility] [address] [place] [address] Dr. Carrington Chandler EO # 0.3 103/ul Normal 0.0-0.7 [facility] Comment on above: Performed By: #### C MP #### [facility] [address] [place] [address] Dr. Carrington Chandler Eosinophils/100 WBC (Bld) 4.7 % Normal 0.9-7.0 [facility] Comment on above: Performed By: #### C MP #### [facility] [address] [place] [address] Dr. Carrington Chandler Erythrocyte distribution width (RBC) [Ratio] 12.7 % Normal 11.0-15.0 [facility] Comment on above: Performed By: #### C MP #### [facility] [address] [place] [address] Dr. Carrington Chandler Hematocrit (Bld) [Volume fraction] 38.8 % Critically low 42.0-54.0 [facility] Comment on above: Performed By: #### C MP #### [facility] [address] [place] [address] Dr. Carrington Chandler Hemoglobin (Bld) [Mass/Vol] 13.2 g/dL Critically low 14.0-18.0 [facility] Comment on above: Performed By: #### C MP #### [facility] [address] [place] [address] Dr. Carrington Chandler IG # 0.01 10e3/ul Normal 0.00-0.03 [facility] Comment on above: Performed By: #### C MP #### [facility] [address] [place] [address] Dr. Carrington Chandler IG % 0.2 % Normal 0.0-0.5 [facility] Comment on above: Performed By: #### C MP #### [facility] [address] [place] [address] Dr. Carrington Chandler LYMPH # 1.4 103/ul Normal 1.2-3.8 [facility] Comment on above: Performed By: #### C MP #### [facility] [address] [place] [address] Dr. Carrington Chandler Lymphocytes/100 WBC (Bld) 25.2 % Normal 20.5-60.0 [facility] Comment on above: Performed By: #### C MP #### [facility] [address] [place] [address] Dr. Carrington Chandler MANUAL DIFF REQ NO Normal [facility] Comment on above: Performed By: #### C MP #### [facility] [address] [place] [address] Dr. Carrington Chandler MCH (RBC) [Entitic mass] 30.3 pg Normal 25.9-34.0 [facility] Comment on above: Performed By: #### C MP #### [facility] [address] [place] [address] Dr. Carrington Chandler MCHC (RBC) [Mass/Vol] 34.0 g/dL Normal 29.9-35.2 [facility] Comment on above: Performed By: #### C MP #### [facility] [address] [address] [address] Carrington Chandler MCV (RBC) [Entitic vol] 89.2 fL Normal 80.0-94.0 [facility] Comment on above: Performed By: #### C MP #### [facility] [address] [address] [address] Carrington Chandler MONO # 0.6 103/ul Normal 0.3-0.8 [facility] Comment on above: Performed By: #### C MP #### [facility] [address] [address] [address] Carrington Chandler Monocytes/100 WBC (Bld) 10.2 % Normal 1.7-12.0 [facility] Comment on above: Performed By: #### C MP #### [facility] [address] [address] [address] Carrington Chandler NEUT # 3.3 103/ul Normal 1.4-6.5 [facility] Comment on above: Performed By: #### C MP #### [facility] [address] [place] [address] Dr. Carrington Chandler Neutrophils/100 WBC (Bld) 59.2 % Normal 43.0-75.0 [facility] Comment on above: Performed By: #### C MP #### [facility] [address] [address] [address] Carrington Chandler Platelet mean volume (Bld) [Entitic vol] 9.1 fL Critically low 9.5-13.5 [facility] Comment on above: Performed By: #### C MP #### [facility] [address] [address] [address] Carrington Chandler PLT 199 103/ul Normal 150-450 [facility] Comment on above: Performed By: #### C MP #### [facility] [address] [place] [address] Dr. Carrington Chandler RBC 4.35 106/ul Critically low 4.70-6.10 [facility] Comment on above: Performed By: #### C MP #### [facility] [address] [place] [address] Dr. Carrington Chandler WBC 5.5 103/ul Normal 4.0-11.0 [facility] Comment on above: Performed By: #### C MP #### [facility] [address] [address] [address] Carrington Chandler Covid-19 PCR ([facility])on SARS-CoV-2 (COVID-19) RNA CHARLIE+probe Ql (Unsp spec) Not detected Normal NOT DETECTED [facility] Comment on above: Result Comment: When [...] for this test is supported by the [employer] of [employer] and Human Service's declaration that [...] used). Performed By: #### B MP #### [facility] [address] [place] [address] Dr. Carrington Chandler PROF 14(COMP METB)on 022 Albumin [Mass/Vol] 3.8 g/dL Normal 3.4-5.0 [facility] Comment on above: Performed By: #### C MP #### [facility] [address] [place] [address] Dr. Carrington Chandler Albumin/Globulin [Mass ratio] 1.0 {ratio} Normal [facility] Comment on above: Performed By: #### C MP #### [facility] [address] [place] [address] Dr. Carrington Chandler ALP [Catalytic activity/Vol] 69 U/L Normal 46-116 [facility] Comment on above: Performed By: #### C MP #### [facility] [address] [address] [address] Carrington Chandler ALT [Catalytic activity/Vol] 18 U/L Normal 16-63 [facility] Comment on above: Performed By: #### C MP #### [facility] [address] [address] [address] Carrington Chandler Anion gap [Moles/Vol] 13.3 mmol/L Normal [facility] Comment on above: Performed By: #### C MP #### [facility] [address] [address] [address] Carrington Chandler AST [Catalytic activity/Vol] 19 U/L Normal 15-37 [facility] Comment on above: Performed By: #### C MP #### [facility] [address] [address] [address] Carrington Chandler Bilirubin [Mass/Vol] 0.3 mg/dL Normal 0.2-1.0 [facility] Comment on above: Performed By: #### C MP #### [facility] [address] [address] [address] Carrington Chandler Calcium [Mass/Vol] 9.0 mg/dL Normal 8.5-10.1 [facility] Comment on above: Performed By: #### C MP #### [facility] [address] [address] [address] Carrington Chandler Chloride [Moles/Vol] 101 mmol/L Normal 98-107 [facility] Comment on above: Performed By: #### C MP #### [facility] [address] [address] [address] Carrington Chandler CO2 [Moles/Vol] 26.7 mmol/L Normal 21.0-32.0 [facility] Comment on above: Performed By: #### C MP #### [facility] [address] [address] [address] Carrington Chandler Creatinine [Mass/Vol] 1.06 mg/dL Normal 0.70-1.30 [facility] Comment on above: Performed By: #### C MP #### [facility] [address] [address] [address] Carrington Chandler EGFR-AF [place] >60 Normal >=60 [facility] Comment on above: Performed By: #### C MP #### [facility] [address] [address] [address] Carrington Chandler EGFR-NON AF [place] >60 Normal >=60 [facility] Comment on above: Performed By: #### C MP #### [facility] [address] [address] [address] Carrington Chandler Globulin (S) [Mass/Vol] 3.8 g/dL Normal [facility] Comment on above: Performed By: #### C MP #### [facility] [address] [place] [address] Dr. Carrington Chandler Glucose [Mass/Vol] 98 mg/dL Normal 74-106 [facility] Comment on above: Performed By: #### C MP #### [facility] [address] [address] [address] Carrington Chandler Potassium [Moles/Vol] 4.0 mmol/L Normal 3.5-5.1 [facility] Comment on above: Performed By: #### C MP #### [facility] [address] [place] [address] Dr. Carrington Chandler Protein [Mass/Vol] 7.6 g/dL Normal 6.4-8.2 [facility] Comment on above: Performed By: #### C MP #### [facility] [address] [address] [address] Carrington Chandler Sodium [Moles/Vol] 137 mmol/L Normal 136-145 [facility] Comment on above: Performed By: #### C MP #### [facility] [address] [address] [address] Carrington Chandler Urea nitrogen [Mass/Vol] 21.0 mg/dL Critically high 7.0-18.0 [facility] Comment on above: Performed By: #### C MP #### [facility] [address] [place] [address] Dr. Carrington Chandler Urea nitrogen/Creatinine [Mass ratio] 19.8 mg/mg Normal [facility] Comment on above: Performed By: #### C MP #### [facility] [address] [place] [address] Dr. Carrington Chandler XR CHEST 1 Von [...] CYNTHIA VASQUEZ Date: 2022-07-03 21:16 Normal [facility] CBC AUTO DIFFon 02-03-2022 BASO # 0.0 103/ul Normal 0.0-0.1 [facility] Comment on above: Performed By: #### C BC #### [facility] [address] [place] [address] Dr. Carrington Chandler Basophils/100 WBC (Bld) 0.3 % Normal 0.2-2.0 [facility] Comment on above: Performed By: #### C BC #### [facility] [address] [place] [address] Dr. Carrington Chandler EO # 0.1 103/ul Normal 0.0-0.7 [facility] Comment on above: Performed By: #### C BC #### [facility] [address] [place] [address] Dr. Carrington Chandler Eosinophils/100 WBC (Bld) 0.9 % Normal 0.9-7.0 [facility] Comment on above: Performed By: #### C BC #### [facility] [address] [place] [address] Dr. Carrington Chandler Erythrocyte distribution width (RBC) [Ratio] 13.9 % Normal 11.0-15.0 [facility] Comment on above: Performed By: #### C BC #### [facility] [address] [place] [address] Dr. Carrington Chandler Hematocrit (Bld) [Volume fraction] 40.4 % Critically low 42.0-54.0 [facility] Comment on above: Performed By: #### C BC #### [facility] [address] [place] [address] Dr. Carrington Chandler Hemoglobin (Bld) [Mass/Vol] 13.4 g/dL Critically low 14.0-18.0 [facility] Comment on above: Performed By: #### C BC #### [facility] [address] [place] [address] Dr. Carrington Chandler IG # 0.03 10e3/ul Normal 0.00-0.03 [facility] Comment on above: Performed By: #### C BC #### [facility] [address] [place] [address] Dr. Carrington Chandler IG % 0.3 % Normal 0.0-0.5 [facility] Comment on above: Performed By: #### C BC #### [facility] [address] [place] [address] Dr. Carrington Chandler LYMPH # 1.5 103/ul Normal 1.2-3.8 [facility] Comment on above: Performed By: #### C BC #### [facility] [address] [place] [address] Dr. Carrington Chandler Lymphocytes/100 WBC (Bld) 12.3 % Critically low 20.5-60.0 [facility] Comment on above: Performed By: #### C BC #### [facility] [address] [place] [address] Dr. Carrington Chandler MANUAL DIFF REQ NO Normal [facility] Comment on above: Performed By: #### C BC #### [facility] [address] [address] [address] Carrington Chandler MCH (RBC) [Entitic mass] 30.0 pg Normal 25.9-34.0 [facility] Comment on above: Performed By: #### C BC #### [facility] [address] [place] [address] Dr. Carrington Chandler MCHC (RBC) [Mass/Vol] 33.2 g/dL Normal 29.9-35.2 [facility] Comment on above: Performed By: #### C BC #### [facility] [address] [place] [address] Dr. Carrington Chandler MCV (RBC) [Entitic vol] 90.6 fL Normal 80.0-94.0 [facility] Comment on above: Performed By: #### C BC #### [facility] [address] [place] [address] Dr. Carrington Chandler MONO # 1.0 103/ul Critically high 0.3-0.8 [facility] Comment on above: Performed By: #### C BC #### [facility] [address] [place] [address] Dr. Carrington Chandler Monocytes/100 WBC (Bld) 8.5 % Normal 1.7-12.0 [facility] Comment on above: Performed By: #### C BC #### [facility] [address] [place] [address] Dr. Carrington Chandler NEUT # 9.2 103/ul Critically high 1.4-6.5 [facility] Comment on above: Performed By: #### C BC #### [facility] [address] [place] [address] Dr. Carrington Chandler Neutrophils/100 WBC (Bld) 77.7 % Critically high 43.0-75.0 [facility] Comment on above: Performed By: #### C BC #### [facility] [address] [place] [address] Dr. Carrington Chandler Platelet mean volume (Bld) [Entitic vol] 9.5 fL Normal 9.5-13.5 [facility] Comment on above: Performed By: #### C BC #### [facility] [address] [place] [address] Dr. Carrington Chandler PLT 204 103/ul Normal 150-450 [facility] Comment on above: Performed By: #### C BC #### [facility] [address] [address] [address] Carrington Chandler RBC 4.46 106/ul Critically low 4.70-6.10 [facility] Comment on above: Performed By: #### C BC #### [facility] [address] [place] [address] Dr. Carrington Chandler WBC 11.9 103/ul Critically high 4.0-11.0 [facility] Comment on above: Performed By: #### C BC #### [facility] [address] [place] [address] Dr. Carrington Chandler Covid-19 PCR ([facility])on 01-23 SARS-CoV-2 (COVID-19) RNA CHARLIE+probe Ql (Unsp spec) Not detected Normal NOT DETECTED [facility] Comment on above: Result Comment: When [...] for this test is supported by the Internet Researcher of Health and Human Service's declaration that [...] used). Performed By: #### C VDTBH #### [facility] [address] [place] [address] Dr. Carrington Chandler PROF 14(COMP METB)on 022 Albumin [Mass/Vol] 3.7 g/dL Normal 3.4-5.0 [facility] Comment on above: Performed By: #### C MP #### [facility] [address] [place] [address] Dr. Carrington Chandler Albumin/Globulin [Mass ratio] 0.9 {ratio} Normal [facility] Comment on above: Performed By: #### C MP #### [facility] [address] [place] [address] Dr. Carrington Chandler ALP [Catalytic activity/Vol] 62 U/L Normal 46-116 [facility] Comment on above: Performed By: #### C MP #### [facility] [address] [place] [address] Dr. Carrington Chandler ALT [Catalytic activity/Vol] 21 U/L Normal 16-63 [facility] Comment on above: Performed By: #### C MP #### [facility] [address] [place] [address] Dr. Carrington Chandler Anion gap [Moles/Vol] 12.3 mmol/L Normal [facility] Comment on above: Performed By: #### C MP #### [facility] [address] [place] [address] Dr. Carrington Chandler AST [Catalytic activity/Vol] 13 U/L Critically low 15-37 [facility] Comment on above: Performed By: #### C MP #### [facility] [address] [place] [address] Dr. Carrington Chandler Bilirubin [Mass/Vol] 0.5 mg/dL Normal 0.2-1.0 [facility] Comment on above: Performed By: #### C MP #### [facility] [address] [place] [address] Dr. Carrington Chandler Calcium [Mass/Vol] 9.1 mg/dL Normal 8.5-10.1 [facility] Comment on above: Performed By: #### C MP #### [facility] [address] [place] [address] Dr. Carrington Chandler Chloride [Moles/Vol] 102 mmol/L Normal 98-107 [facility] Comment on above: Performed By: #### C MP #### [facility] [address] [place] [address] Dr. Carrington Chandler CO2 [Moles/Vol] 24.9 mmol/L Normal 21.0-32.0 [facility] Comment on above: Performed By: #### C MP #### [facility] [address] [address] [address] Carrington Chandler Creatinine [Mass/Vol] 1.36 mg/dL Critically high 0.70-1.30 [facility] Comment on above: Performed By: #### C MP #### [facility] [address] [place] [address] Dr. Carrington Chandler EGFR-AF [place]IZ[place] >60 Normal >=60 [facility] Comment on above: Performed By: #### C MP #### [facility] [address] [place] [address] Dr. Carrington Chandler EGFR-NON AF [place] 53 mL/min/1.73m2 Critically low >=60 [facility] Comment on above: Performed By: #### C MP #### [facility] [address] [place] [address] Dr. Carrington Chandler Globulin (S) [Mass/Vol] 3.9 g/dL Normal [facility] Comment on above: Performed By: #### C MP #### [facility] [address] [place] [address] Dr. Carrington Chandler Glucose [Mass/Vol] 138 mg/dL Critically high 74-106 [facility] Comment on above: Performed By: #### C MP #### [facility] [address] [address] [address] Carrington Chandler Potassium [Moles/Vol] 4.2 mmol/L Normal 3.5-5.1 [facility] Comment on above: Performed By: #### C MP #### [facility] [address] [place] [address] Dr. Carrington Chandler Protein [Mass/Vol] 7.6 g/dL Normal 6.4-8.2 [facility] Comment on above: Performed By: #### C MP #### [facility] [address] [address] [address] Carrington Chandler Sodium [Moles/Vol] 135 mmol/L Critically low 136-145 [facility] Comment on above: Performed By: #### C MP #### [facility] [address] [address] [address] Carrington Chandler Urea nitrogen [Mass/Vol] 24.0 mg/dL Critically high 7.0-18.0 [facility] Comment on above: Performed By: #### C MP #### [facility] [address] [address] [address] Carrington Chandler Urea nitrogen/Creatinine [Mass ratio] 17.6 mg/mg Normal [facility] Comment on above: Performed By: #### C MP #### [facility] [address] [address] [address] Carrington Chandler XR CHEST 1 Von [...] by: DAREK MARX Date: 2022-02-03 02:09 Normal [facility] Vital Signs Date Time Vital Sign Value Performing Clinician Facility 10-31-2024 14:52-0400 Body height 170.2 cm [facility] 10-31-2024 14:52-0400 Body mass index (BMI) [Ratio] 38.47 kg/m2 [facility] 10-31-2024 14:52-0400 Body temperature 97.9 [degF] [facility] 10-31-2024 14:52-0400 Body weight 111.4 kg [facility] [employer] [facility] 10-31-2024 14:52-0400 Diastolic blood pressure 76 mm[Hg] [facility] [employer] [facility] 10-31-2024 14:52-0400 Heart rate 90 /min [facility] [employer] [facility] 10-31-2024 14:52-0400 Respiratory rate 16 /min [facility] 10-31-2024 14:52-0400 SaO2% (BldA) [Mass fraction] 94 % [facility] [employer] [facility] 10-31-2024 14:52-0400 Systolic blood pressure 111 mm[Hg] [facility] [employer] [facility] 09-20-2024 09:17-0500 Body height 167.6 cm Alok Webber DO Work Phone: [facility] 09-20-2024 09:17-0500 Body mass index (BMI) [Ratio] 39.22 kg/m2 Alok Webber DO Work Phone: [facility] 09-20-2024 09:17-0500 Body weight 110.22 kg Alok Webber DO Work Phone: [facility] 09-20-2024 09:17-0500 Diastolic blood pressure 78 mm[Hg] Alok Webber DO Work Phone: [facility] 09-20-2024 09:17-0500 Heart rate 115 /min Alok Webber DO Work Phone: [facility] 09-20-2024 09:17-0500 Systolic blood pressure 124 mm[Hg] Alok Webber DO Work Phone: [facility] 09-14-2024 10:50-0500 Body height 170.2 cm Rom Pierre MD Work Phone: [facility] 09-14-2024 10:50-0500 Body mass index (BMI) [Ratio] 38.53 kg/m2 Rom Pierre MD Work Phone: [facility] 09-14-2024 10:50-0500 Body temperature 97.39 [degF] Rom Pierre MD Work Phone: [facility] 09-14-2024 10:50-0500 Body weight 111.58 kg Rom Pierre MD Work Phone: [facility] 09-14-2024 10:50-0500 Diastolic blood pressure 72 mm[Hg] Rom Pierre MD Work Phone: [facility] 09-14-2024 10:50-0500 Heart rate 96 /min Rom Pierre MD Work Phone: [facility] 09-14-2024 10:50-0500 Respiratory rate 16 /min Rom Pierre MD Work Phone: [facility] 09-14-2024 10:50-0500 SaO2% (BldA) [Mass fraction] 96 % Rom Pierre MD Work Phone: [facility] 09-14-2024 10:50-0500 Systolic blood pressure 126 mm[Hg] Rom Pierre MD Work Phone: [facility] 05-29-2024 15:05-0500 Body height 170.18 cm [facility] 05-29-2024 15:05-0500 Body mass index (BMI) [Ratio] 37.4 kg/m2 [facility] 05-29-2024 15:05-0500 Body weight 108.4 kg [facility] 05-29-2024 15:05-0500 Diastolic blood pressure 69 mm[Hg] [facility] 05-29-2024 15:05-0500 Heart rate 93 /min [facility] 05-29-2024 15:05-0500 SaO2% (BldA) [Mass fraction] 93 % [facility] 05-29-2024 15:05-0500 Systolic blood pressure 124 mm[Hg] [facility] 05-11-2024 14:52-0400 Diastolic blood pressure 72 mm[Hg] [facility] 05-11-2024 14:52-0400 Heart rate 108 /min [facility] 05-11-2024 14:52-0400 SaO2% (BldA) [Mass fraction] 95 % [facility] 05-11-2024 14:52-0400 Systolic blood pressure 118 mm[Hg] [facility] 03-09-2024 10:23-0400 Body height 170.2 cm Rom Pierre MD Work Phone: [facility] 03-09-2024 10:23-0400 Body mass index (BMI) [Ratio] 37.93 kg/m2 Rom Pierre MD Work Phone: [facility] 03-09-2024 10:23-0400 Body weight 109.86 kg Rom Pierre MD Work Phone: [facility] 03-09-2024 10:23-0400 Diastolic blood pressure 86 mm[Hg] Rom Pierre MD Work Phone: [facility] 03-09-2024 10:23-0400 Heart rate 93 /min Rom Pierre MD Work Phone: [facility] 03-09-2024 10:23-0400 SaO2% (BldA) [Mass fraction] 95 % Rom Pierre MD Work Phone: [facility] 03-09-2024 10:23-0400 Systolic blood pressure 148 mm[Hg] Rom Pierre MD Work Phone: [facility] 02-24-2024 14:00-0400 Body height 170.18 cm [facility] 02-24-2024 14:00-0400 Body mass index (BMI) [Ratio] 37.7 kg/m2 [facility] 02-24-2024 14:00-0400 Body weight 109.31 kg [facility] 02-24-2024 14:00-0400 Diastolic blood pressure 63 mm[Hg] [facility] 02-24-2024 14:00-0400 Heart rate 99 /min [facility] 02-24-2024 14:00-0400 Systolic blood pressure 99 mm[Hg] [facility] 01-05-2024 12:56-0400 Body height 170.18 cm [facility] 01-05-2024 12:56-0400 Body mass index (BMI) [Ratio] 38.2 kg/m2 [facility] 01-05-2024 12:56-0400 Body weight 110.78 kg [facility] 01-05-2024 12:56-0400 Diastolic blood pressure 66 mm[Hg] [facility] 01-05-2024 12:56-0400 Heart rate 66 /min [facility] 01-05-2024 12:56-0400 SaO2% (BldA) [Mass fraction] 91 % [facility] 01-05-2024 12:56-0400 Systolic blood pressure 108 mm[Hg] [facility] 12-13-2023 13:44-0400 Body height 171.45 cm [facility] 12-13-2023 13:44-0400 Body mass index (BMI) [Ratio] 37.5 kg/m2 [facility] 12-13-2023 13:44-0400 Body weight 110.22 kg [facility] 12-13-2023 13:44-0400 Diastolic blood pressure 60 mm[Hg] [facility] 12-13-2023 13:44-0400 Heart rate 87 /min [facility] 12-13-2023 13:44-0400 SaO2% (BldA) [Mass fraction] 97 % [facility] 12-13-2023 13:44-0400 Systolic blood pressure 102 mm[Hg] [facility] 11-25-2023 14:56-0400 Body height 2042.16 cm [facility] 11-25-2023 14:56-0400 Body mass index (BMI) [Ratio] 0.2 kg/m2 [facility] 11-25-2023 14:56-0400 Body weight 110.22 kg [facility] 11-25-2023 14:56-0400 Diastolic blood pressure 68 mm[Hg] [facility] 11-25-2023 14:56-0400 Heart rate 71 /min [facility] 11-25-2023 14:56-0400 SaO2% (BldA) [Mass fraction] 93 % [facility] 11-25-2023 14:56-0400 Systolic blood pressure 116 mm[Hg] [facility] 10-26-2023 14:31-0400 Body height 171.45 cm [facility] 10-26-2023 14:31-0400 Body mass index (BMI) [Ratio] 37 kg/m2 [facility] 10-26-2023 14:31-0400 Body weight 108.86 kg [facility] 10-26-2023 14:31-0400 Diastolic blood pressure 65 mm[Hg] [facility] 10-26-2023 14:31-0400 Heart rate 78 /min [facility] 10-26-2023 14:31-0400 SaO2% (BldA) [Mass fraction] 97 % [facility] 10-26-2023 14:31-0400 Systolic blood pressure 103 mm[Hg] [facility] 10-04-2023 15:13-0400 Body height 171.45 cm [facility] 10-04-2023 15:13-0400 Body mass index (BMI) [Ratio] 36.7 kg/m2 [facility] 10-04-2023 15:13-0400 Body weight 108.04 kg [facility] 10-04-2023 15:13-0400 Diastolic blood pressure 63 mm[Hg] [facility] 10-04-2023 15:13-0400 Heart rate 72 /min [facility] 10-04-2023 15:13-0400 SaO2% (BldA) [Mass fraction] 93 % [facility] 10-04-2023 15:13-0400 Systolic blood pressure 95 mm[Hg] [facility] 09-14-2023 09:13-0500 Body height 170.2 cm Alok Webber DO Work Phone: [facility] 09-14-2023 09:13-0500 Body mass index (BMI) [Ratio] 36.81 kg/m2 Alok Webber DO Work Phone: [facility] 09-14-2023 09:13-0500 Body weight 106.59 kg Alok Webber DO Work Phone: [facility] 09-14-2023 09:13-0500 Diastolic blood pressure 70 mm[Hg] Alok Webber DO Work Phone: [facility] 09-14-2023 09:13-0500 Heart rate 72 /min Alok Webber DO Work Phone: [facility] 09-14-2023 09:13-0500 Systolic blood pressure 118 mm[Hg] Alok Webber DO Work Phone: [facility] 08-06-2023 13:30-0500 Body height 171.45 cm Brock Modi Other [facility] 08-06-2023 13:30-0500 Body mass index (BMI) [Ratio] 35.95 kg/m2 Brock Modi Other [facility] [employer] Other 08-06-2023 13:30-0500 Body weight 105.69 kg Brock Modi Other [facility] [employer] Other 08-06-2023 13:30-0500 Body weight 105.68 kg [facility] 08-06-2023 13:30-0500 Diastolic blood pressure 66 mm[Hg] Brock Modi Other [facility] 08-06-2023 13:30-0500 SaO2% (BldA) [Mass fraction] 95 % Brock Modi Other [facility] [employer] Other 08-06-2023 13:30-0500 Systolic blood pressure 108 mm[Hg] Brock Modi Other [facility] 08-05-2023 14:23-0500 Diastolic blood pressure 76 mm[Hg] Christopher Faith MD Work Phone: [facility] [employer] 08-05-2023 14:23-0500 Heart rate 70 /min Christopher Faith MD Work Phone: [facility] [employer] 08-05-2023 14:23-0500 Systolic blood pressure 108 mm[Hg] Christopher Faith MD Work Phone: [facility] [employer] 08-05-2023 14:22-0500 Body height 170.2 cm Christopher Faith MD Work Phone: [facility] [employer] 08-05-2023 14:22-0500 Body mass index (BMI) [Ratio] 36.43 kg/m2 Christopher Faith [facility] 08-05-2023 14:22-0500 Body weight 105.51 kg Christopher Faith MD Work Phone: [facility] [employer] 08-05-2023 14:22-0500 Respiratory rate 18 /min Christopher Faith [facility] 06-24-2023 11:00-0500 Body height 171.45 cm Brock Modi Other [employer] Other 06-24-2023 11:00-0500 Body mass index (BMI) [Ratio] 34.56 kg/m2 Brock Modi Other [employer] Other 06-24-2023 11:00-0500 Body temperature 98.1 [degF] Brock Modi Other [employer] Other 06-24-2023 11:00-0500 Body weight 101.61 kg Brock Modi Other [employer] Other 06-24-2023 11:00-0500 Diastolic blood pressure 67 mm[Hg] Brock Modi Other [employer] Other 06-24-2023 11:00-0500 SaO2% (BldA) [Mass fraction] 95 % Brock Modi Other [employer] Other 06-24-2023 11:00-0500 Systolic blood pressure 109 mm[Hg] Brock Modi Other [employer] Other 03-16-2023 11:30-0400 Body height 171.45 cm Brock Modi Other [employer] Other 03-16-2023 11:30-0400 Body mass index (BMI) [Ratio] 33.48 kg/m2 Brock Modi Other [employer] Other 03-16-2023 11:30-0400 Body weight 98.43 kg Brock Modi Other [employer] Other 03-16-2023 11:30-0400 Diastolic blood pressure 67 mm[Hg] Brock Modi Other [employer] Other 03-16-2023 11:30-0400 SaO2% (BldA) [Mass fraction] 93 % Brock Modi Other [employer] Other 03-16-2023 11:30-0400 Systolic blood pressure 114 mm[Hg] Brock Modi Other [employer] Other 02-04-2023 13:30-0400 Body height 171.45 cm Brock Modi Other [employer] Other 02-04-2023 13:30-0400 Body mass index (BMI) [Ratio] 33.64 kg/m2 Brock Modi Other [employer] Other 02-04-2023 13:30-0400 Body weight 98.88 kg Brock Modi Other [facility] [employer] Other 02-04-2023 13:30-0400 Diastolic blood pressure 67 mm[Hg] Brock Modi Other [facility] [employer] Other 02-04-2023 13:30-0400 SaO2% (BldA) [Mass fraction] 96 % Brock Modi Other [facility] [employer] Other 02-04-2023 13:30-0400 Systolic blood pressure 117 mm[Hg] Brock Modi Other [facility] [employer] Other 12-24-2022 14:08-0400 Body height 167.64 cm Brock Modi Work Phone: [facility] [employer] DO Work Phone: 12-24-2022 14:08-0400 Body mass index (BMI) [Ratio] 35.02 kg/m2 Brock Modi Work Phone: [facility] [employer] DO Work Phone: 12-24-2022 14:08-0400 Body surface area Derived from formula 2.07 m2 Brock Modi Work Phone: [facility] [employer] DO Work Phone: 12-24-2022 14:08-0400 Body weight 98.43 kg Brock Modi Work Phone: [facility] [employer] DO Work Phone: 12-24-2022 14:08-0400 Diastolic blood pressure 80 mm[Hg] Brock Modi Work Phone: [facility] [employer] DO Work Phone: 12-24-2022 14:08-0400 Heart rate 115 /min Brock Modi Work Phone: [facility] [employer] 250 DO Work Phone: 12-24-2022 14:08-0400 Systolic blood pressure 124 mm[Hg] Brock Modi Work Phone: [facility] [employer] 250 DO Work Phone: 11-27-2022 11:00-0400 Body height 171.45 cm Wagner Marrufo Other [employer] Other 11-27-2022 11:00-0400 Body mass index (BMI) [Ratio] 33.48 kg/m2 Wagner Marrufo Other [employer] Other 11-27-2022 11:00-0400 Body weight 98.43 kg Wagner Marrufo Other [employer] Other 11-12-2022 12:45-0400 Body height 171.45 cm Brock Modi Other [employer] Other 11-12-2022 12:45-0400 Body mass index (BMI) [Ratio] 33.48 kg/m2 Brock Modi Other [employer] Other 11-12-2022 12:45-0400 Body weight 98.43 kg Brock Modi Other [employer] Other 11-12-2022 12:45-0400 Diastolic blood pressure 78 mm[Hg] Brock Modi Other [employer] Other 11-12-2022 12:45-0400 SaO2% (BldA) [Mass fraction] 92 % Brock Modi Other [employer] Other 11-12-2022 12:45-0400 Systolic blood pressure 122 mm[Hg] Brock Modi Other [employer] Other 10-21-2022 15:18-0400 Body height 167.64 cm Brock Modi Work Phone: [facility] 250 DO Work Phone: 10-21-2022 15:18-0400 Body mass index (BMI) [Ratio] 35.51 kg/m2 Brock Modi Work Phone: [facility] 250 DO Work Phone: 10-21-2022 15:18-0400 Body surface area Derived from formula 2.08 m2 Brock Modi Work Phone: [facility] 250 DO Work Phone: 10-21-2022 15:18-0400 Body weight 99.79 kg Brock Modi Work Phone: [facility] 250 DO Work Phone: 10-21-2022 15:18-0400 Diastolic blood pressure 70 mm[Hg] Brock Modi Work Phone: [facility] 250 DO Work Phone: 10-21-2022 15:18-0400 Heart rate 84 /min Brock Modi Work Phone: [facility] 250 DO Work Phone: 10-21-2022 15:18-0400 Systolic blood pressure 126 mm[Hg] Brock Modi Work Phone: [facility] 250 DO Work Phone: 10-15-2022 11:15-0400 Body height 171.45 cm Brock Modi Other [facility] [employer] Other 10-15-2022 11:15-0400 Body mass index (BMI) [Ratio] 33.33 kg/m2 Brock Modi Other [employer] Other 10-15-2022 11:15-0400 Body weight 97.98 kg Brock Modi Other [employer] Other 10-15-2022 11:15-0400 Diastolic blood pressure 84 mm[Hg] Brock Modi Other [employer] Other 10-15-2022 11:15-0400 SaO2% (BldA) [Mass fraction] 94 % Brock Modi Other [employer] Other 10-15-2022 11:15-0400 Systolic blood pressure 122 mm[Hg] Brock Modi Other [employer] Other 10-13-2022 11:57-0400 Body temperature 97.4 [degF] MD Brock Modi Work Phone: [facility] 10-13-2022 11:57-0400 Diastolic blood pressure 85 mm[Hg] MD Brock Modi Work Phone: [facility] 10-13-2022 11:57-0400 Heart rate 107 /min MD Brock Modi Work Phone: [facility] 10-13-2022 11:57-0400 Inhaled oxygen flow rate 2 L/min MD Brock Modi Work Phone: [facility] 10-13-2022 11:57-0400 Respiratory rate 17 /min MD Brock Modi Work Phone: [facility] 10-13-2022 11:57-0400 SaO2% (BldA) [Mass fraction] 97 % MD Brock Modi Work Phone: [facility] 10-13-2022 11:57-0400 Systolic blood pressure 125 mm[Hg] MD Brock Modi Work Phone: [facility] 10-13-2022 04:32-0400 Body weight 97.52 kg MD Brock Modi Work Phone: [facility] 10-10-2022 08:46-0400 65 1 Brock Modi Work Phone: [facility] 250 DO Work Phone: Comment on above: [id number] 10-10-2022 04:57-0400 Body height 170.18 cm MD Brock Modi Work Phone: [facility] 09-09-2022 14:30-0500 Body height 171.45 cm Wagner Marrufo Other [facility] [employer] Other 09-09-2022 14:30-0500 Body mass index (BMI) [Ratio] 34.41 kg/m2 Wagner Marrufo Other [facility] [employer] Other 09-09-2022 14:30-0500 Body weight 101.15 kg Wagner Marrufo Other [facility] [employer] Other 08-13-2022 12:15-0500 Body height 171.45 cm Brock Modi Other [facility] [employer] Other 08-13-2022 12:15-0500 Body mass index (BMI) [Ratio] 34.38 kg/m2 Brock Modi Other [facility] [employer] Other 08-13-2022 12:15-0500 Body weight 101.06 kg Brock Modi Other [employer] Other 08-13-2022 12:15-0500 Diastolic blood pressure 84 mm[Hg] Brock Modi Other [employer] Other 08-13-2022 12:15-0500 SaO2% (BldA) [Mass fraction] 97 % Brock Modi Other [employer] Other 08-13-2022 12:15-0500 Systolic blood pressure 132 mm[Hg] Brock Modi Other [employer] Other 07-30-2022 12:30-0500 Body height 171.45 cm Brock Modi Other [employer] Other 07-30-2022 12:30-0500 Body mass index (BMI) [Ratio] 32.71 kg/m2 Brock Modi Other [employer] Other 07-30-2022 12:30-0500 Body weight 96.16 kg Brock Modi Other [employer] Other 07-30-2022 12:30-0500 Diastolic blood pressure 80 mm[Hg] Brock Modi Other [employer] Other 07-30-2022 12:30-0500 SaO2% (BldA) [Mass fraction] 97 % Brock Modi Other [employer] Other 07-30-2022 12:30-0500 Systolic blood pressure 122 mm[Hg] Brock Modi Other [employer] Other Encounters Encounter Date Encounter Type Care Provider Facility Start: 12-14-2024 End: 12-14-2024 ambulatory [facility] Start: 12-11-2024 End: 12-11-2024 ambulatory [facility] Start: 11-25-2024 End: 11-25-2024 ambulatory Anjana Recio [facility] Work Phone: Start: 11-25-2024 End: 11-25-2024 Departed Referred Anjana Recio MD Work Phone: [facility] Start: 11-16-2024 End: 11-16-2024 Telephone encounter [facility] Start: 11-14-2024 End: 11-15-2024 Evaluation and management of inpatient [place] Start: 10-31-2024 End: 10-31-2024 Patient encounter procedure [facility] 14 [facility] Comment on above: Infrarenal abdominal aortic aneurysm (AAA) without rupture; Encounter for therapeutic drug monitoring Start: 10-31-2024 End: 10-31-2024 ambulatory [place] Start: 09-20-2024 End: 09-20-2024 ambulatory [facility] Ambulatory Start: 09-20-2024 End: 09-20-2024 Encounter for preprocedural cardiovascular examination [facility] Ambulatory Start: 09-20-2024 End: 09-20-2024 Office consultation new/estab patient 80 min Alok Headleydon DO Work Phone: [facility] Comment on above: Preop cardiovascular exam; Atherosclerosis of [place] coronary artery of [place] heart without angina pectoris; Ischemic cardiomyopathy; Past myocardial infarction; Mixed hyperlipidemia; Essential hypertension; Murmur, heart; Moderate chronic obstructive pulmonary disease (Multi); Lung mass; Obesity (BMI 35.0-39.9 without comorbidity); Current smoker Start: 09-20-2024 End: 09-20-2024 Patient encounter status Alok Headleydon DO Work Phone: [facility] Start: 09-14-2024 ambulatory BROCK MODI [facility] Start: 09-14-2024 End: 09-14-2024 Office outpatient visit 25 minutes Rom Pierre MD Work Phone: [facility] Comment on above: Infrarenal abdominal aortic aneurysm (AAA) without rupture (CMS-HCC) (Primary Dx); Cigarette smoker motivated to quit; Bilateral carotid bruits Start: 09-14-2024 End: 09-14-2024 ambulatory [facility] Start: 09-12-2024 End: 09-12-2024 ambulatory [facility] Start: 09-11-2024 End: 09-12-2024 Clinisync Result Encounter Rom Pierre MD Work Phone: [facility] External Department Unsolicited Start: 09-11-2024 End: 09-12-2024 Clinisync Result Encounter Rom Pierre MD Work Phone: [facility] External [facility] Unsolicited Start: 05-29-2024 End: 05-29-2024 ambulatory [facility] Work Phone: Start: 05-29-2024 End: 05-29-2024 Patient encounter procedure [facility] Physician [facility] Work Phone: Start: 05-26-2024 Non-patient / Non-visit [facility] Work Phone: Start: 05-11-2024 Non-patient / Non-visit [facility] Physician [facility] Work Phone: Start: 05-08-2024 Non-patient / Non-visit [facility] Work Phone: Start: 05-07-2024 Non-patient / Non-visit [facility] Work Phone: Start: 03-09-2024 End: 03-09-2024 Office outpatient visit 25 minutes Rom Pierre MD Work Phone: [facility] Comment on above: Infrarenal abdominal aortic aneurysm (AAA) without rupture ([facility]-HCC) (Primary Dx); Bilateral carotid bruits; Cigarette smoker Start: 03-03-2024 End: 03-03-2024 ambulatory CHRISTOPHER Boothe [facility] Start: 02-24-2024 End: 02-24-2024 ambulatory [facility] Work Phone: Start: 02-24-2024 End: 02-24-2024 Patient encounter procedure [facility] Physician [facility] Work Phone: Start: 01-05-2024 End: 01-05-2024 ambulatory [facility] Work Phone: Start: 01-05-2024 End: 01-05-2024 Patient encounter procedure [facility] Physician [facility] Work Phone: Start: 12-13-2023 End: 12-13-2023 [facility] Work Phone: Start: 12-13-2023 End: 12-13-2023 Patient encounter procedure [facility] Phys[facility] Work Phone: Start: 11-25-2023 End: 11-25-2023 Patient encounter procedure [facility] Physician [facility] Work Phone: Start: 10-26-2023 End: 10-26-2023 [facility] Work Phone: Start: 10-26-2023 End: 10-26-2023 Patient encounter procedure [facility] Work Phone: Start: 10-09-2023 Non-patient / Non-visit [facility] Work Phone: Start: 10-04-2023 End: 10-04-2023 Patient encounter procedure [facility] Work Phone: Start: 10-04-2023 Non-patient / Non-visit [facility] Work Phone: Start: 09-14-2023 End: 09-14-2023 Office outpatient visit 15 minutes Alok Webber DO Work Phone: [facility] Comment on above: Atherosclerosis of n ative coronary artery of [place] heart without angina pectoris; Essential hypertension, benign; Mixed hyperlipidemia; Ischemic cardiomyopathy; Past myocardial infarction; Moderate chronic obstructive pulmonary disease (CMS/HCC); Obesity (BMI 35.0-39.9 without comorbidity); Current smoker Start: 09-03-2023 End: 09-03-2023 ambulatory Brock Ly Other [employer] Other Start: 09-03-2023 Telephone encounter Brock Ly [facility] Start: 08-24-2023 Orders Only Kendal Hirschjennifer HUDDLESTONN [facility] Comment on above: Abdominal aortic ane urysm (AAA) without rupture, unspecified part (CMS-HCC) (Primary Dx); Obstructive chronic bronchitis with exacerbation (CMS-HCC); Obesity with body mass index (BMI) of 30.0 to 39.9 Start: 08-06-2023 End: 08-06-2023 ambulatory Brock Modi Other [employer] Other Start: 08-06-2023 Office outpatient vi sit 15 minutes Brock Modi [facility] Start: 08-06-2023 End: 08-06-2023 Patient encounter procedure [facility] Work Phone: Start: 08-05-2023 End: 08-05-2023 ambulatory Brock Ly Other [employer] Other Start: 08-05-2023 Telephone encounter Brock Modi [facility] Start: 08-05-2023 End: 08-05-2023 Office outpatient visit [...] 07-16-2023 End: 07-16-2023 ambulatory Brock Ly Other [employer] Other Start: 07-16-2023 Telephone encounter Brock Ly [facility] Start: 06-24-2023 End: 06-24-2023 ambulatory Brocklindsay Modi Other [employer] Other Start: 06-24-2023 Office outpatient vi sit 15 minutes Brock Modi [facility] Start: 04-07-[address] Alok Webber Facility: Start: 04-02-2023 End: 04-02-2023 ambulatory Brock Modi Other [employer] Other Start: 04-02-2023 Telephone encounter Brock Modi [facility] Start: 03-19-2023 End: 03-19-2023 ambulatory Brock Modi Other [employer] Other Start: 03-19-2023 Telephone encounter Brock Modi [facility] Start: 03-16-2023 End: 03-16-2023 ambulatory Brock Modi Other [employer] Other Start: 03-16-2023 Office outpatient vi sit 15 minutes Brock Modi [facility] Start: 02-04-2023 End: 02-04-2023 ambulatory Brock Modi Other [employer] Other Start: 02-04-2023 Office outpatient vi sit 15 minutes Brock Modi [facility] Start: 01-29-2023 End: 01-29-2023 ambulatory Viral Yang Other [employer] Other Start: 01-29-2023 Telephone encounter Viral Yang [facility] Start: 01-27-2023 Rx Renewal Brock Modi Work Phone: [facility] 250 DO Work Phone: Start: 01-19-2023 Patient encounter procedure Brock Modi Work Phone: [facility] [place] Work Phone: Start: 01-14-2023 End: 01-14-2023 ambulatory Brock Modi Other [employer] Other Start: 01-14-2023 Telephone encounter Brock Modi [facility] Start: 12-24-2022 Office outpatient vi sit 40 minutes Brock Modi Work Phone: [facility] 250 DO Work Phone: Start: 12-24-[address] Alok Webber Facility: Start: 12-04-2022 End: 12-04-2022 ambulatory Brock Modi Other [employer] Other Start: 12-04-2022 Telephone encounter Brock Modi [facility] Start: 12-03-2022 End: 12-03-2022 ambulatory Brock Modi Other [employer] Other Start: 12-03-2022 Telephone encounter Brock Modi [facility] Start: 11-27-2022 End: 11-27-2022 ambulatory Wagner Marrufo Other [employer] Other Start: 11-27-2022 Office outpatient vi sit 25 minutes Wagner Marrufo [facility] Start: 11-12-2022 End: 11-12-2022 ambulatory Brock Modi Other [employer] Other Start: 11-12-2022 Office outpatient vi sit 15 minutes Brock Modi [facility] Start: 11-04-2022 ambulatory JANINE Burton ty:H1 Start: 11-03-2022 End: 11-03-2022 ambulatory MD Brock Modi Work Phone: [facility] Work Phone: Start: 11-03-2022 End: 11-03-2022 Patient encounter procedure MD Brock Modi Work Phone: [facility]-CT Scan [facility] Work Phone: Start: 11-02-2022 Patient encounter procedure Brock Modi Work Phone: [facility] 250 DO Work Phone: Start: 11-02-2022 ambulatory Janine Cunha Facility:1 [id number] Start: 10-29-2022 Chart Update Brock Modi Work Phone: [facility] 600 DO Work Phone: Start: 10-28-2022 End: 10-28-2022 ambulatory MD Brock Modi Work Phone: [facility] Work Phone: Start: 10-28-2022 End: 10-28-2022 Patient encounter procedure MD Brock Modi Work Phone: [facility] [place] Work Phone: Start: 10-27-2022 End: 10-27-2022 ambulatory Brock Modi Other [employer] Other Start: 10-27-2022 Telephone encounter Brock Modi [facility] Start: 10-21-2022 Transitional care ma daron srvc 14 day discharge Brock Modi Work Phone: [facility] 250 DO Work Phone: Start: 10-21-2022 End: 10-21-2022 ambulatory Janine Cunha [employer] Other Start: 10-21-2022 Telephone encounter Adi Campos [employer] [facility] Start: 10-20-2022 End: 10-20-2022 ambulatory Adi Campos Other [employer] Other Start: 10-20-2022 Office outpatient ne w 45 minutes Adi Campos [facility] Start: 10-15-2022 End: 10-15-2022 ambulatory Brock Modi Other [employer] Other Start: 10-15-2022 Office outpatient vi sit 15 minutes Brock Modi [facility] Start: 10-10-[address] Brock Modi Facility:[id number] Start: 10-10-2022 End: 10-13-2022 Evaluation and management of inpatient MD Brock Modi Work Phone: [facility] [employer] Work Phone: Start: 10-10-2022 End: 10-10-2022 ambulatory COLIN TREADWELL Facility:H1 Start: 09-09-2022 Office outpatient ne w 45 minutes Wagner Niru [facility] Start: 09-09-2022 End: 09-09-2022 ambulatory DO Wagner Marrufo Work Phone: [facility] Work Phone: Start: 09-09-2022 End: 09-09-2022 Patient encounter procedure DO Wagner Marrufo Work Phone: [facility] Start: 09-07-2022 End: 09-08-2022 ambulatory COLIN TREADWELL Facility:H1 Start: 08-13-2022 End: 08-13-2022 ambulatory Brock Modi Other [employer] Other Start: 08-13-2022 Office outpatient vi sit 15 minutes Brock Modi [facility] Start: 08-10-2022 End: 08-11-[address] BROCK MODI Facility:H1 Start: 07-30-2022 End: 07-30-2022 ambulatory Brock Modi Other [employer] Other Start: 07-30-2022 Office outpatient vi sit 25 minutes Brock Modi [facility] Start: 07-28-2022 End: 07-28-2022 ambulatory Brock Modi Other [employer] Other Start: 07-28-2022 Telephone encounter Brock Modi [facility] Start: 07-10-2022 End: 07-11-[address] CAR LIGHT Facility:H1 Start: 07-08-2022 End: 07-08-[address] JANELLE LAL . Facility:H1 Start: 07-05-2022 End: 07-05-[address] RUBÉN DALY Facility:H1 Start: 07-03-2022 End: 07-04-[address] ARLIN CUNHA Facility:H1 Start: 02-03-2022 End: 02-03-[address] ARLIN CUNHA Facility:H1 Patient encounter status Brock Modi Work Phone: [facility] 250 DO Work Phone: Procedures Date Procedure [...] Author Start: 11-14-2025 Depression Screening Depression Screening [facility] Start: 11-14-2025 Tobacco Screening Tobacco Screening [facility] Start: 10-31-2025 Adult BMI Screening Adult BMI Screening [facility] Start: 10-31-2025 Tobacco Screening Tobacco Screening [facility] Start: 09-20-2025 End: 09-20-2025 Patient encounter procedure 09/20/2025 11:30 AM EST Office Visit [facility] [address] [place] [address] Alok Webber DO [address] [facility] [address] [place] [address] [facility] Start: 09-14-2025 Adult BMI Screening Adult BMI Screening [facility] Start: 09-14-2025 Tobacco Screening Tobacco Screening [facility] Start: 2025 Pneumococcal Vaccine: Pediatrics (0 to 5 Years) and At-Risk Patients (6 to 64 Years) (3 - PPSV23 or PCV20) Pneumococcal Vaccine: Pediatrics (0 to 5 Years) and At-Risk Patients (6 to 64 Years) (3 - PPSV23 or PCV20) [facility] Start: 03-26-2025 Influenza vaccination Influenza Vaccine [facility] Start: 03-09-2025 Adult BMI Screening Adult BMI Screening [facility] Start: 03-09-2025 Tobacco Screening Tobacco Screening [facility] Start: 12-14-2024 End: 12-14-2024 Patient encounter procedure 12/14/2024 11:20 AM EDT Office Visit [facility] [address] [place] [phone] Rom Pierre MD [address] [place] [address] [facility] Vascular Surgery Start: 12-11-2024 End: 12-11-2024 Patient encounter procedure 12/11/2024 10:30 AM EDT Appointment [facility] Imaging [address] [place] [phone] Rom Pierre MD [address] [place] [address] [facility] Imaging Start: 11-25-2024 Urine culture [facility] Start: 11-25-2024 Bacteria identified in Urine by Culture Urine Culture [facility] Start: 11-14-2024 End: 11-14-2024 Admission to same day surgery center 11/14/2024 11:30 AM EDT - 11/14/2024 2:30 PM EDT Surgery [address] [place] [phone] Rom Pierre MD [address] [place] [address] ENDOGRAFT BYPASS ABDOMINAL AORTA [77883 (CPT )] [facility] Comment on above: ENDOGRAFT BYPASS ABDOMINAL AORTA [55448 (CPT )] Start: 11-14-2024 End: 11-14-2024 Byp oth/thn vein aortobifemoral ENDOGRAFT BYPASS ABDOMINAL AORTA Infrarenal abdominal aortic aneurysm (AAA) without rupture Encounter for therapeutic drug monitoring 11/14/2024 11:30 AM EDT [facility] Start: 11-14-2024 Subsequent hospital visit by physician 11/14/2024 11:30 AM EDT Hospital Encounter [address] [place] [phone] Rom Pierre MD [address], [address] [address] [facility] Start: 09-20-2024 End: 09-20-2025 Alanine aminotransferase [Enzymatic activity/volume] in Serum or Plasma by With P-5'-P Alanine Aminotransferase Lab Routine Mixed hyperlipidemia Expected: 09/20/2024 (Approximate), Expires: 09/20/[address] [facility] Work Phone: Comment on above: Expected: 09/20/2024 (Approximate), Expi res: 09/20/2025 Start: 09-20-2024 End: 09-20-2025 Aspartate aminotransferase [Enzymatic activity/volume] in Serum or Plasma by With P-5'-P Aspartate Aminotransferase Lab Routine Mixed hyperlipidemia Expected: 09/20/2024 (Approximate), Expires: 09/20/[address] [facility] Work Phone: Comment on above: Expected: 09/20/2024 (Approximate), Expi res: 09/20/2025 Start: 09-20-2024 End: 09-20-2025 C reactive protein [Mass/volume] in Serum or Plasma by High sensitivity method C-Reactive Protein, High Sensitivity Lab Routine Atherosclerosis of [place] coronary artery of [place] heart without angina pectoris Ischemic cardiomyopathy Past myocardial infarction Mixed hyperlipidemia Essential hypertension Expected: 09/20/2024 (Approximate), Expires: 09/20/[address] [facility] Work Phone: Comment on above: Expected: 09/20/2024 (Approximate), Expi res: 09/20/2025 Start: 09-20-2024 End: 09-20-2025 Complete Pulmonary Function Test (Spirometry/DLCO/Lung Volumes) Complete Pulmonary Function Test (Spirometry/DLCO/Lung Volumes) PFT Routine Lung mass Expected: 09/20/2024 (Approximate), Expires: 09/20/2025 [facility] Work Phone: Comment on above: Expected: 09/20/2024 (Approximate), Expi res: 09/20/2025 Start: 09-20-2024 End: 09-20-2025 Lipid 1996 panel - Serum or Plasma Lipid Panel Lab Routine Mixed hyperlipidemia Expected: 09/20/2024 (Approximate), Expires: 09/20/[address] [facility] Work Phone: Comment on above: Expected: 09/20/2024 (Approximate), Expi res: 09/20/2025 Start: 09-20-2024 End: 09-20-2025 XR Chest 2 Views XR chest 2 views Imaging Routine Lung mass Expected: 09/20/2024 (Approximate), Expires: 09/20/[address] [facility] Work Phone: Comment on above: Expected: 09/20/2024 (Approximate), Expi res: 09/20/2025 Start: 09-20-2024 End: 09-20-2024 Patient encounter procedure 09/20/2024 9:00 AM EST Office Visit [facility] [address] [place] [address] Alok Webber DO [address] [place] [address] [facility] Start: 09-09-2024 End: 09-09-2024 CTA Abdominal vessels and Pelvis vessels W contrast IV CT angiogram abdomen and pelvis Imaging Routine Infrarenal Abdominal Aortic Aneurysm (Aaa) Without Rupture ([facility]-H[facility]) Expected: 09/09/2024 (Approximate), Expires: 09/09/2024 [employer] Work Phone: Comment on above: Expected: 09/09/2024 (Approximate), Expi res: 09/09/2024 Start: 08-05-2024 Adult [facility] Start: 08-05-2024 Tobacco [facility]ening [facility] Start: 03-26-2024 COVID-19 Vaccine ( season) COVID-19 Vaccine ( season) [facility] Start: 03-26-2024 Influenza vaccination [facility] [employer] [facility] Start: 03-09-2024 End: 03-09-2025 Echo complete W/O contrast Echo complete W/O contrast Echocardiography Routine Infrarenal abdominal aortic aneurysm (AAA) without rupture ([facility]-HCC) Bilateral carotid bruits Cigarette smoker Expected: 03/09/2024, Expires: 03/09/2025 [facility] Comment on above: Expected: 03/09/2024, Expires: Start: 03-09-2024 End: 03-09-2025 US Carotid arteries - bilateral Vas carotid duplex bilateral Vascular Ultrasound Routine Bilateral carotid bruits Expected: 03/09/2024, Expires: 03/09/2025 [facility] Comment on above: Expected: 03/09/2024, Expires: Start: 02-17-2024 End: 02-17-2024 Patient encounter procedure 02/17/2024 10:10 AM EDT Office Visit [facility] [address] [place] [address] Rom Pierre MD [address], [address] [address] [facility] [facility] Start: 09-05-2023 Tobacco Counseling Tobacco Counseling [facility] Start: 08-24-2023 End: 08-24-2024 CTA Abdominal vessels and Pelvis vessels W contrast IV CT angiogram abdomen and pelvis Imaging Routine Abdominal Aortic Aneurysm (Aaa) Without Rupture, Unspecified Part (Cms-Hcc) Obstructive chronic bronchitis with exacerbation ([facility]) Obesity with body mass index (BMI) of 30.0 to 39.9 Expected: 08/24/2023, Expires: 08/24/2024 [employer] Work Phone: Comment on above: Expected: 08/24/2023, [...] (3 of 3 - PCV20 or PCV21) [facility] Start: 04-07-2023 FUV, Provider: Alok Webber, Status: Pen, Time: 11:20 AM FUV, Provider: Alok Webber, Status: Pen, Time: 11:20 AM -[facility] DO Work Phone: Start: 03-26-2023 Influenza vaccination [facility] Start: 01-19-2023 FUV, Provider: Alok Webber, Status: Pen, Time: 2:30 PM FUV, Provider: Alok Webber, Status: Pen, Time: 2:30 PM -[facility] DO Work Phone: Start: 11-02-2022 HOLTER 48, Provider: VERONICA LANGLEY SECURITY PATROL DRIVER 1,[id number], Status: Pen, Time: 2:30 PM HOLTER 48, Provider: VERONICA LANGLEY SECURITY PATROL DRIVER 1,[id number], Status: Pen, Time: 2:30 PM -[facility] DO Work Phone: Start: 10-13-2022 [facility] Start: 10-10-2022 Dilation of Coronary Artery, Two Arteries with Three Drug-eluting Intraluminal Devices, Percutaneous Approach Dilation of Coronary Artery, Two Arteries with Three Drug-eluting Intraluminal Devices, Percutaneous Approach [facility] Start: 10-10-2022 Fluoroscopy of Left Heart using Low Osmolar Contrast Fluoroscopy of Left Heart using Low Osmolar Contrast [facility] Start: 10-10-2022 Fluoroscopy of Multiple Coronary Arteries using Low Osmolar Contrast Fluoroscopy of Multiple Coronary Arteries using Low Osmolar Contrast [facility] Start: 10-10-2022 Measurement of Cardiac Sampling and Pressure, Left Heart, Percutaneous Approach Measurement of Cardiac Sampling and Pressure, Left Heart, Percutaneous Approach [facility] Start: 10-10-2022 Hospital admission [facility] Start: 10-10-2022 [facility] Start: 10-10-2022 Hospital admission [facility] Start: 10-10-2022 [facility] Start: 2020 RSV High Risk: (Elderly (60+) or Population) (1 - Risk 60-74 years 1-dose series) RSV High Risk: (Elderly (60+) or Population) (1 - Risk 60-74 years 1-dose series) [facility] Start: 2010 Administration of varicella zoster vaccine Zoster (Shingles) Vaccine (1 of 2) [facility] Start: 2010 Zoster Vaccines (1 of 2) Zoster Vaccines (1 of 2) [facility] Start: 1982 DTaP/Tdap/Td Vaccines (1 - Tdap) DTaP/Tdap/Td Vaccines (1 - Tdap) [facility] Start: 1979 DTaP,Tdap and Td Vaccines (1 - Tdap) DTaP,Tdap and Td Vaccines (1 - Tdap) [facility] Start: 1978 Adult BMI Follow Up Plan Adult BMI Follow Up Plan [facility] Start: 1978 Diabetes mellitus screening Diabetes Screening [facility] Start: 1978 Hepatitis C screening Hepatitis C Screening [facility] Start: 1972 Depression Screening Depression Screening [facility] Start: 1961 MMR Vaccines (1 of 1 - Standard series) MMR Vaccines (1 of 1 - Standard series) [facility] Start: 1960 COVID-19 Vaccine (#1) COVID-19 Vaccine (#1) [facility] Start: 1960 HIV screening HIV Screening [facility] Start: 1960 Lipid panel Lipid Panel [facility] Start: 1960 Screening for malignant neoplasm of colon [facility] Start: 1960 Tobacco Counseling Tobacco Counseling [facility] Start: 1960 Yearly Adult Physical Yearly Adult Physical [facility] End: 08-22-2024 Creatinine includes GFR, serum Creatinine includes GFR, serum Lab Routine Abdominal Aortic Aneurysm (Aaa) Without Rupture, Unspecified Part (Cms-Hcc) Obstructive chronic bronchitis with exacerbation ([facility]) Obesity with body mass index (BMI) of 30.0 to 39.9 Chronic obstructive pulmonary disease, unspecified COPD type ([facility]) 1 Occurrences starting 08/22/2023 until 08/22/2024 J Kumar [employer] Comment on above: 1 Occurrences starting 08/22/2023 until 08/22/2024 End: 08-24-2024 Creatinine includes GFR, serum Creatinine includes GFR, serum Lab Routine Abdominal Aortic Aneurysm (Aaa) Without Rupture, Unspecified Part ([facility]) Obstructive chronic bronchitis with exacerbation ([facility]) Obesity with body mass index (BMI) of 30.0 to 39.9 1 Occurrences starting 08/24/2023 until 08/24/2024 [employer] Work Phone: Comment on above: 1 Occurrences starting 08/24/2023 until 08/24/2024 End: 03-09-2025 Creatinine includes GFR, serum Creatinine includes GFR, serum Lab Routine Infrarenal abdominal aortic aneurysm (AAA) without rupture ([facility]) 1 Occurrences starting 03/09/2024 until 03/09/2025 J Kumar [employer] Comment on above: 1 Occurrences starting 03/09/2024 until 03/09/2025 Patient Education Coronary Angio plasty (DC) Coronary Stenting (DC) Angina (DC) Chest Pain (DC) Drug Eluting Stents [facility] Work Phone: Patient referral [facility] Work Phone: US Lower extremity v ein - right [facility] Immunizations Immunization Date Immunization Notes Care Provider Fa cility 05-02-2018 pneumococcal Conjuga te, unspecified formulation; Translations: [Need for prophylactic vaccination against Streptococcus pneumoniae (pneumococcus)] Brock Modi Other [employer] Other 05-02-2018 pneumococcal polysaccharide vaccine, 23 valent Brock Modi Work Phone: [facility] 05-26-2017 pneumococcal conjuga te vaccine, 13 valent Brock Modi Work Phone: [facility] Payers Date Payer Category Payer Self-pay 2022 Medicaid [id number] 2022 Medicaid [id number] 2021 Private Health Insurance [employer] Member Subscriber Plan / Payer (Effective 2021-Present) Name: Hector Gaspar Relation to Subscriber: Self Name: Hector Gaspar Payer ID: Not on file Type: Not on file Address: [place] [id number] 2019 Unknown 1960 Unknown [id number] 2.840.1.262879.3.579.2. 593 1960 Unknown [id number] 2.16.840.1.401753.3.579.2. 593 1960 Unknown [id number] 2.16.840.1.483747.3.579.2. 593 1960 Unknown [id number] 2.840.1.564067.3.579.2. 593 1960 Unknown [id number] 2.840.1.371464.3.579.2. 593 1960 Unknown [id number] 2.16.840.1.962427.3.579.2. 593 1960 Unknown [id number] 2.16.840.1.137476.3.579.2. 593 1960 Unknown [id number] 2.16840.1.195907.3.579.2. 593 1960 Unknown [id number] 2.16.840.1.132021.3.579.2. 593 1960 Unknown [id number] 2.16.840.1.594121.3.579.2. 356 1960 Unknown [id number] 2.16.840.1.953655.3.579.2. 356 1960 Unknown [id number] 2.16.840.1.470994.3.579.2. 356 1960 Unknown [id number] 2.16.840.1.748330.3.579.2. 356 1960 Unknown [id number] 2.16.840.1.127077.3.579.2. 356 1960 Unknown [id number] 2.16.840.1.234059.3.579.2. 1244 1960 Unknown [id number] 2.16.840.1.115956.3.579.2. 1286 1960 Unknown [id number] 2.16.840.1.983554.3.579.2. 1286 1960 Unknown [id number] 2.16.840.1.293728.3.579.2. 1286 1960 Unknown [id number] 2.16.840.1.315895.3.579.2. 1286 1960 Unknown [id number] 2.16.840.1.233458.3.579.2. 1286 1960 Unknown [id number] 2.16.840.1.179163.3.579.2. 1286 1960 Unknown [id number] 2.16.840.1.032298.3.579.2. 1286 1960 Unknown [id number] 2.16.840.1.578226.3.579.2. 1286 1960 Unknown [id number] 2.16.840.1.390764.3.579.2. 1286 1959 Unknown [id number] 2.16.840.1.688244.19 Unknown [id number] 2.16.840.1.443676.3.579.2. 531 Social History Date Type Detail Facility Tobacco smoking stat us IAIS Unknown if ever smoked [facility] Work Phone: Start: 1960 Sex Assigned At Male F [facility] Start: 08-06-2023 End: 11-14-2024 Sex Assigned At [facility] [employer] Other Start: 10-10-2022 End: 10-10-2022 Tobacco smoking status NHIS Smoker (finding) [facility] Start: 08-06-2023 End: 11-14-2024 Daily caffeine consumption Daily caffeine consumption -[facility] DO Work Phone: Comment on above: 1/2 gallon coffee da darrion; 5-6 cig daily; 8 cigs daily; Start: 08-08-1991 End: 03-09-2024 Tobacco smoking status IAIS Smokes tobacco daily [facility] [employer] [facility] Start: 08-08-1991 History of tobacco use Cigarette Smo ker [facility] [employer] [facility] Start: 09-14-2023 End: 11-15-2024 Alcohol intake Lifetime [facility]drinker (finding) [facility] Start: 1960 Sex Assigned At Not on file P [facility] [employer] [facility] Start: 09-04-2023 End: 09-20-2024 Exposure to SARS-CoV-2 (event) Not sure [facility] Start: 08-26-2022 End: 03-09-2024 Tobacco use and exposure Smokeless tobacco non-user [facility] [employer] [facility] Within the past 12 months we worried whether our food would run out before we got money to buy more. Never True [facility] Start: 08-26-2022 Tobacco Comment pack and a nathanael f a day pt reports he is really trying to quit 09/04/21 [facility] [employer] [facility] smoking consumption unknown [facility] Start: 08-01-2021 End: 11-27-2024 Sex Male (finding) [facility] Has the [employer], [employer], [employer], or water company threatened to shut off services in your home in past 12Mo No [facility] How often to you hav e a drink containing alcohol? Never [facility] Medical Equipment Procedure Code Equipment Code Equipment Origin al Text Equipment Identifier Dates Drug-eluting coronary artery stent, non-bioabsorbable- polymer-coated [id number] FDA Start: 10-10-2022 Drug-eluting coronary artery stent, non-bioabsorbable- polymer-coated [id number] FDA Start: 10-10-2022 Drug-eluting coronary artery stent, non-bioabsorbable- polymer-coated [id number] FDA Start: 10-10-2022 [employer] or System [id number] FDA Start: 11-14-2024 Graft Stnt 103mm 14-36mm 20fr Endurant Iis 2 Brch Evas Ntnl - [id number] - [id number] Start: 11-14-2024 Graft Stnt 124mm 20-16mm 16fr Endurant Ii 177-197mm - [id number] - [id number] Start: 11-14-2024 Comment on above: Description: RIGHT C OMMON ILIAC Graft Stnt 146mm 16mm 20fr Endurant Ii 2 Brch Evas Aaa - [id number] - [id number] Start: 11-14-2024 Goals Date Patient Goal Desired Activity /State Personal health goal Functional Status Date Assessment Result Facility 10-13-2022 Functional status Patient at [facility] Work Phone: Mental Status Date Assessment Result Facility 10-13-2022 Cognitive function Cognitive Sta tus Patient at Baseline [facility] Work Phone: Clinical Notes 07-30-2022 to 11-16-2024 [...] is going to be evaluated at the [facility]. documented in this encounter [facility] 11-16-2024 Telephone encounter Note Pt is s/p Evar on 11-14- called this morning and has a low grade fever. I spoke to Dr iPerre and he wants pt to be seen today by one of our ANNIA's or to be evaluated in the ER-pt states he has no ride to [place] today so he is going to be evaluated at the [facility]. [facility] 10-31-2024 History and physical note Images from the original note were not included. PRE-ADMISSION TESTING HISTORY AND PHYSICAL EXAM DATE: 10/31/24 PCP: SEYMOUR HARPER MD HISTORY OF PRESENT ILLNESS: Hector Gaspar Sr., a 64 y.o. White or male, presents to [facility] for a pre-surgical H&P. The patient [...] Allergic Asthma COPD (chronic obstructive pulmonary disease) ([facility]) Coronary artery disease stent to RCA and CX Fractures rib years ago Hyperlipidemia Hypertension Injury of back Myocardial infarction ([facility]) Pneumonia 2023 Shortness of breath Sleep apnea [...] place, and time. PERTINENT TESTING AVAILABLE IN [facility] (WITHIN THE PAST 2 YEARS): EK09/20/2024 Echo: [...] Vas carotid duplex bilateral Result Date: 03/15/2024 [place] [address] Ultrasound Report Signed Patient: HECTOR GASPAR MR#: [id number] : 1960 Acct:[id number] Age/Sex: 63 / M ADM Date: 03/14/24 Loc: US Attending Dr: Rom Pierre M.D. Ordering Physician: Rom Pierre M.D. Date of Service: 03/14/24 Procedure(s): US carotid duplex BI Accession Number(s): [id number] cc: Brock Modi M.D.; Rom Pierre M.D. [place] [id number] Patient Name: HECTOR GASPAR MRN: [id number] date: 1960 Sex: M Assigned Patient Location: Current Patient Location: Accession/Order Number: [id number] Exam Date: 03/14/2024 14:01 Report Date: 03/15/2024 [...] standard protocol. ICA-CCA ratios are calculated with service support representative peak-systolic velocities and recorded. Vertebral arteries [...] Signed By: 03/15/24 1030 DD/ 1027 TD/TT: Concrete Pourer: Pulmonary function testing: No results found. RECENT [...] the most recent lab values available in [facility] at the time the H&P was signed. ASSESSMENT / DIAGNOSIS: ABDOMINAL AORTIC ANEURYSM PLAN: Hector Gaspar Sr. is scheduled for Endograft Bypass Abdominal Aorta on 11/14/[address] Pierre. Cardiology clearance will be given after the patient has a chest x-ray, pulmonary function test and echo according to cardiology note in media. ROOPA Damon 10/31/24 1535 [employer] Work Phone: 10-31-2024 History and physical note Images from the original note were not included. PRE-ADMISSION TESTING HISTORY AND PHYSICAL EXAM DATE: 10/31/24 PCP: SEYMOUR HARPER MD HISTORY OF PRESENT ILLNESS: Hector Gaspar Sr., a 64 y.o. White or male, presents to [facility] for a pre-surgical H&P. The patient [...] Allergic Asthma COPD (chronic obstructive pulmonary disease) ([facility]) Coronary artery disease stent to RCA and CX Fractures rib years ago Hyperlipidemia Hypertension Injury of back Myocardial infarction ([facility]) Pneumonia 2023 Shortness of breath Sleep apnea [...] place, and time. PERTINENT TESTING AVAILABLE IN [facility] (WITHIN THE PAST 2 YEARS): EK09/20/2024 Echo: [...] Vas carotid duplex bilateral Result Date: 03/15/2024 [place] [address] Ultrasound Report Signed Patient: HECTOR GASPAR MR#: [id number] : 1960 Acct:[id number] Age/Sex: 63 / M ADM Date: 03/14/24 Loc: US Attending Dr: Rom Pierre M.D. Ordering Physician: Rom Pierre M.D. Date of Service: 03/14/24 Procedure(s): US carotid duplex BI Accession Number(s): [id number] cc: Brock Modi M.D.; Rom Pierre M.D. [address] [address] Patient Name: HECTOR GASPAR MRN: [id number] date: 1960 Sex: M Assigned Patient Location: [place] Current Patient Location: Accession/Order Number: [id number] Exam Date: 03/14/2024 14:01 Report Date: 03/15/2024 [...] standard protocol. ICA-CCA ratios are calculated with service support representative peak-systolic velocities and recorded. Vertebral arteries [...] Signed By: 03/15/24 1030 DD/ 1027 TD/TT: Concrete Pourer: Pulmonary function testing: No results found. RECENT [...] the most recent lab values available in [facility] at the time the H&P was signed. ASSESSMENT / DIAGNOSIS: ABDOMINAL AORTIC ANEURYSM PLAN: Hector Gaspar Sr. is scheduled for Endograft Bypass Abdominal Aorta on 11/14/[address] Pierre. Cardiology clearance will be given after the patient has a chest x-ray, pulmonary function test and echo according to cardiology note in media. Shabnam Otero APRN-PASTA PRESS OPERATOR 10/31/24 [id number] documented in this encounter [facility] 10-31-2024 Instructions Valentina Leon RN - 10/31/2024 2:30 PM EDT Your surgery/procedure is scheduled at [facility] on 11/14/2024 at 11:30 am Arrival Time 9:30 am [facility] Address: [address] [place] [address] Park in P1 Parking lot located on [facility]. Report to the Entrance B. Check in at the information desk the surgery. The waiting room located on the second floor. If you have any questions prior to surgery, please call Pre-Admission Clinic at [phone] between 7:30 am and 4:30 pm Wednesday through Wednesday. If you have questions the morning of surgery, please call the Pre-op Department at [phone]. Notify your SURGEON if you develop any [...] piercings ,hair extensions that contain metal, nail russian, make-up, and contact lens. You may brush [...] RIGHTS AND RESPONSIBILITIES As a patient at [facility], you have the right to: Receive medical care and be informed of who is taking care of you Be treated with dignity and respect Have a family member/service support representative of choice and your physician notified of your admission Receive information and actively participate in decisions about your care and treatment Refuse care, treatment and services Decide who may provide your support and speak for you Access adventism and spiritual services Participate in ethical issues [...] of hospital charges and payment methods Patient/patient service support representative responsibilities are to: Provide information about [...] RIGHTS AND RESPONSIBILITIES As a patient at [facility], you have the right to: Receive medical care and be informed of who is taking care of you Be treated with dignity and respect Have a family member/service support representative of choice and your physician notified of your admission Receive information and actively participate in decisions about your care and treatment Refuse care, treatment and services Decide who may provide your support and speak for you Access adventism and spiritual services Participate in ethical issues [...] of hospital charges and payment methods Patient/patient service support representative responsibilities are to: Provide information about [...] promptly as possible documented in this encounter [facility] 09-20-2024 History of Present illness Narrative [...] ASHD; patient sustained high risk non-ST elevation [place] in [...] an echocardiogram was performed last week at [place] or [place], read by outside physician, with normal left [...] 1. Preop cardiovascular exam 2. Atherosclerosis of still[place]amish coronary artery of still[place] heart without angina pectoris Follow Up In [...] discussion and plan. documented in this encounter [facility] Work Phone: 09-20-2024 Instructions Kate Cruz [...] be sent through Care Everywhere.Heart Healthy Diet (Arabic)documented in this encounter [facility] Work Phone: 09-14-2024 Evaluation + Plan note Associated Problem(s): Bilateral carotid bruits Carotid stenosis mild bilaterally S medical therapy. He is on aspirin statin and Plavix. We will continue those. J [employer] 09-14-2024 Miscellaneous Notes Associated Problem(s): Bilateral carotid [...] proceed with repair. documented in this encounter [facility] 09-14-2024 Evaluation + Plan note Associated Problem(s): Cigarette smoker motivated to quit Counseled him for at least 3 minutes he is willing to quit [facility] 09-14-2024 Evaluation + Plan note Associated Problem(s): AAA (abdominal aortic aneurysm) without rupture (CMS-HCC) I discussed with him the finding in the CT scan. Discussed different options and he would like to proceed with repair. [facility] 09-14-2024 History of Present illness Narrative [...] History: Diagnosis Date AAA (abdominal aortic aneurysm) ([facility] Allergic Past Surgical History: No past surgical [...] List AAA (abdominal aortic aneurysm) without rupture ([facility]) - Primary Current Assessment & Plan I [...] [facility] today [facility] aaa, [facility]. Diagnoses and all orders for this visit: Infrarenal abdominal aortic aneurysm (AAA) without rupture ([facility]) Cigarette smoker motivated to quit Bilateral carotid bruits Rom Pierre MD, GHANSHYAM, RPVI, FSVS, FACS [facility] This note was created with the assistance of a speech recognition program. While intending to generate a timely document that accurately reflects the content of the visit, no guarantee can be provided that every grammatical or spelling mistake has been or will be identified or corrected. Thank you for your understanding. documented in this encounter [facility] 09-14-2024 Instructions Rom Pierre MD - 09/14/2024 10:40 AM EST Are You Ready To Kick The Habit? Free Tobacco Cessation Resources [facility] Services [facility] Centers provide all employees with free tobacco cessation services that include: Counseling to understand nicotine addiction Education about medications that can help you successfully quit Assistance with developing a plan to quit Call to set up an individual appointment or find out when group classes will be held: [facility]: [phone] [facility]: [phone] [facility]: [phone] [facility]: [phone] Quit Smoking Action Plan and Resources [facility] offers an eight-week, online smoking cessation plan to all [facility] employees, regardless of whether [employer] is your medical insurance provider. Go to [email or web address] ness and click the Health Risk Assessment and Resources link to get started. In the [employer] menu, click Action Plans instead of Health Risk Assessment to access the Quit Smoking Action Plan. Additional smoking cessation resources are also available to all [facility] employees on the [employer] web page at www.[employer]/quit smoking. [employer] Tobacco Cessation Program If [employer] is your medical insurance provider, there are more free resources available to you, including: No copays or deductibles on local tobacco cessation counseling services to help you quit Prescription assistance for tobacco cessation medications to help you quit For details about the tobacco cessation program available to [employer] members, go to www.[employer] (Search: Tobacco Cessation Program). [place] Tobacco Quit Line 8-587-HMNS-NOW ( ) is a toll-free, telephonic service that helps [place] residents quit smoking and using tobacco. It is staffed by experts who tailor a quit plan for you and provide you with advice. [place] Tobacco Quit Line 6-144-QYLL-NOW ( ) is a toll-free, telephonic service that helps [place] residents quit smoking and using tobacco. It is staffed by experts who tailor a quit plan for you and provide you with advice. Two weeks of nicotine replacement therapy may be provided at no charge, if needed. Additional Resources These national organizations also offer free information and resources to help you quit tobacco: [place] [employer]--www.cancer.org/healthy/ stayawayfromtobacco [place] [employer]--www.heart.org (Search: Quit Smoking) Centers for Disease Control and Prevention--www.cdc.gov/tobacco [place] [employer]--www.lungusa.org documented in this encounter [facility] [facility] 03-09-2024 Evaluation + Plan note Associated Problem(s): Cigarette smoker Counseled on smoking cessation at length. [facility] 03-09-2024 Evaluation + Plan note Associated Problem(s): Bilateral carotid bruits Best medical therapy and smoking cessation.Carotid duplex ultrasound [facility] 03-09-2024 Miscellaneous Notes Associated Problem(s): Cigarette [...] cessation in length. documented in this encounter [facility] 03-09-2024 Evaluation + Plan note Associated Problem(s): AAA (abdominal aortic aneurysm) without rupture (CMS-HCC) 5.2 cm infrarenal abdominal aortic aneurysm. We discussed different options. He would like to repeat his scan in 6 months. Continue to smoke. I counseled him on smoking cessation in length. 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 Diagnoses and all orders for this visit: Infrarenal abdominal aortic aneurysm (AAA) without rupture ([facility]) - CT angiogram abdomen and pelvis; [...] for your understanding. documented in this encounter [facility] 03-09-2024 Instructions Rom Pierre MD - 03/09/2024 10:20 AM EDT Are You Ready To Kick The Habit? Free Tobacco Cessation Resources [facility] Services [facility] Centers provide all employees with free tobacco cessation services that include: Counseling to understand nicotine addiction Education about medications that can help you successfully quit Assistance with developing a plan to quit Call to set up an individual appointment or find out when group classes will be held: [facility]: [phone] [facility]: [phone] [facility]: [phone] [facility]: [phone] Quit Smoking Action Plan and Resources [facility] offers an eight-week, online smoking cessation plan to all [facility] employees, regardless of whether [employer] is your medical insurance provider. Go to [email or web address] ness and click the Health Risk Assessment and Resources link to get started. In the Leyci[employer]Rdrtwt menu, click Action Plans instead of Health Risk Assessment to access the Quit Smoking Action Plan. Additional smoking cessation resources are also available to all [facility] employees on the Tzxlh[employer]Rmwsyl web page at www.Pull[employer]/quit smoking. [employer] Tobacco Cessation Program If [employer] is your medical insurance provider, there are more free resources available to you, including: No copays or deductibles on local tobacco cessation counseling services to help you quit Prescription assistance for tobacco cessation medications to help you quit For details about the tobacco cessation program available to [employer] members, go to www.Pull.[employer] (Search: Tobacco Cessation Program). [place] Tobacco Quit Line 0-717-SZLA-NOW ( ) is a toll-free, telephonic service that helps [place] residents quit smoking and using tobacco. It is staffed by experts who tailor a quit plan for you and provide you with advice. [place] Tobacco Quit Line 4-947-NQFS-NOW ( ) is a toll-free, telephonic service that helps [place] residents quit smoking and using tobacco. It is staffed by experts who tailor a quit plan for you and provide you with advice. Two weeks of nicotine replacement therapy may be provided at no charge, if needed. Additional Resources These national organizations also offer free information and resources to help you quit tobacco: [place] [employer]--www.cancer.org/healthy/ stayawayfromtobacco [place] [employer]--www.heart.org (Search: Quit Smoking) Centers for Disease Control and Prevention--www.cdc.gov/tobacco [place] [employer]--www.lungusa.org documented in this encounter [facility] [employer] 09-14-2023 History of Present illness Narrative Subjective [...] ASHD; patient sustained high risk non-ST elevation NH in [...] remains compliant on current DAPT and post NH therapies Recommendations: Discontinue ticagrelor, switch to clopidogrel [...] Disp: , Rfl: Assessment/Plan 1. Atherosclerosis of stillaguamish coronary artery of stillaguam[place] heart without angina pectoris 2. Essential hypertension, [...] discussion and plan. documented in this encounter [facility] Work Phone: 09-14-2023 Instructions Kate Cruz [...] instructions on exercise. documented in this encounter [facility] Work Phone: 08-06-2023 Evaluation note Encounter [...] 6 months with imaging at that time. [facility] Other 01-11-2024 History of Present illness Narrative* [...] aortic aneurysm (AAA) without rupture, unspecified part ([facility]) - [facility] [place], [place] - CT angiogram abdomen and pelvis; Future - Creatinine includes GFR, serum; Future Obstructive chronic bronchitis with exacerbation ([facility]) - CT angiogram abdomen and pelvis; Future - Creatinine includes GFR, serum; Future Obesity with body mass index (BMI) of 30.0 to 39.9 - CT angiogram abdomen and pelvis; Future - Creatinine includes GFR, serum; Future Chronic obstructive pulmonary disease, unspecified COPD type ([facility]) - CT angiogram abdomen and pelvis; Future - Creatinine includes GFR, serum; Future Patient with infrarenal abdominal aortic aneurysm. His most recent duplex ultrasound shows 5.2 cm and that was in June of 2023. At this point I will see him back in 6 months with a follow-up CT angiogram. [facility]* Encounter Date Diagnosis Assessment Notes Treatment Notes Treatment Clinical Notes Jun, Abdominal aortic aneurysm (AAA) without rupture, unspecified part (ICD-10 - I71.40) [facility] Other 11-30-2023 Evaluation note* Encounter Date Diagnosis Assessment Notes Treatment Notes Treatment Clinical Notes May, Abdominal aortic aneurysm (AAA) without rupture, unspecified part (ICD-10 - I71.40) Pt requests order as he is overdue for recheckUS. May, Bronchitis (ICD-10 - J40) Finish meds and treatment plan ordered by ER recently. Pt understands as he is improving. [facility] Other 08-25-2023 Evaluation note* Encounter Date Diagnosis Assessment Notes Treatment Notes Treatment Clinical Notes Feb, Acute cystitis without hematuria (ICD-10 - N30.00) [facility] Other 08-22-2023 Evaluation note* Encounter Date Diagnosis Assessment Notes Treatment Notes Treatment Clinical Notes Feb, Penile discharge (ICD-10 - R36.9) Pt request STI testing Feb, Dysuria (ICD-10 - R30.0) Rule out UTI based on symptoms. Will call w results. Push fluids. Feb, Chronic obstructive pulmonary disease, unspecified (ICD-10 - J44.9) Clinical diagnosis secondary to [id number] history of tobacco abuse. He will need PFTs in the future. Discussed missed appts w Dr. Campos and sleep lab. He states he will not followup there as he doesn't want to do a lung biopsy. His resp symptoms are improved overall. He expresses understanding on the severity of his condition and he chooses not to followup. [facility] Other 07-13-2023 Evaluation note* Encounter Date Diagnosis Assessment Notes Treatment Notes Treatment Clinical Notes Jan, COPD, moderate (ICD-10 - J44.9) Reminded him to keep appt w Dr. Campos on 02/10. Continue home medications. Avoid going outside with there is haze. Jan, Other sleep disorders (ICD-10 - G47.8) Gave number for the [facility] Sleep lab. He missed his last appt as his daughter had COVID. He will call to reschedule. [facility] Other 07-07-2023 Evaluation note* Encounter Date Diagnosis Assessment Notes Treatment Notes Treatment Clinical Notes Jan, Situational anxiety (ICD-10 - F41.8) [facility] 05-11-2023 Evaluation note* Encounter Date Diagnosis Assessment Notes Treatment Notes Treatment Clinical Notes November, Situational anxiety (ICD-10 - F41.8) [facility] 05-05-2023 Evaluation note* Encounter Date Diagnosis [...] any surgical interventions. Tobacco cessation program at [facility] has been recommended and offered as well as the national Quitline 2-952-RBYF-NOW. We have discussed pharmacologic treatment including nicotine replacement therapy which can lead to a positive nicotine test as well as nicotine free medications both of which will need to be managed by their PCP. We have provided handout for the [facility] Tobacco Cessation Program. This discussion was limited to 5 minutes. [facility] Other 04-20-2023 Evaluation note* Encounter Date Diagnosis Assessment Notes Treatment Notes Treatment Clinical Notes Oct, Chronic obstructive pulmonary disease, unspecified COPD type (ICD-10 - J44.9) Will resume inhalers as prescribed. Keep appt w Dr. Campos. Notes frequent dyspnea, agrees to a prednisone course. Oct, INOCENTE (obstructive sleep apnea) (ICD-10 - G47.33) I called [facility]. He has to meet with the sleep specialist before the test is done, even though it was already ordered. I gave him the date of the appt. I also ordered the test. Oct, Coronary artery disease involving stillaguamish heart without angina pectoris, unspecified vessel or lesion type (ICD-10 - I25.10) Continued followup w [facility]. Continue time off work until breathing status is improved. [facility] Other 03-28-2023 Evaluation note* Encounter Date Diagnosis Assessment Notes Treatment Notes Treatment Clinical Notes Sep, Chronic obstructive pulmonary disease, unspecified COPD type (ICD-10 - J44.9) Trelegy samples and training please Sep, Atelectasis of right lung (ICD-10 - J98.11) Please obtain any previous chest CT done at [facility] in the past, and have them load onto our PACS Sep, Tobacco use disorder (ICD-10 - F17.200) Sep, Coronary artery disease involving [place] heart without angina pectoris, unspecified vessel or lesion type (ICD-10 - I25.10) [facility] 03-23-2023 Evaluation note* Encounter Date Diagnosis Assessment Notes Treatment Notes Treatment Clinical Notes Sep, Coronary artery disease involving stillaguamish coronary artery of stillaguam[place] heart without angina pectoris (ICD-10 - I25.10) [...] needs a titration study at the least. [facility] Other 03-21-2023 Hospital Discharge instructions Additional Instructions [...] doctor or pharmacist, without first calling the cylinder inspector who implanted the stent. If you require [...] weight lifting, stair steppers, etc. until the cylinder inspector approves these activities. Check with the cylinder inspector on your first follow-up visit. CALL YOUR PHYSICIAN at [phone]: -If bleeding should occur from the catheter insertion site- apply pressure to the site then immediately call us. -Report any fever, redness, drainage, increased swelling, or firmness at the catheter insertion site. Some bruising or slight swelling may be present at the time of discharge. -Should arm or leg become cold, numb, white, or blue, contact the cylinder inspector immediately. -IF you should experience episodes of [...] is recommended. Please call Central Scheduling at [phone] to schedule your appointment.] The attending cylinder inspector or [facility] nurse clinician should provide you with specific instructions regarding activity, diet, medications, and further follow up for you. Follow the medication instructions provided on your discharge. If the dosages and instructions on this sheet differ from the dosage and instructions on the bottle, follow the instructions on the bottle. [facility] is not responsible for incorrect prescription information provided by the patient during their visit. Do not stop your medications without consulting your health care provider. Please take the list with you to your next doctor's appointment.[facility] Work Phone: 1(402) 861-747403-21-2023 Progress note Author Rubén Tatum [facility] October 13, 2022 9:02am Note Date/Time October 13, 2022 9:0 2am [facility] [address] [place] [address] Cardiology Progress Note Signed Patient: Hector Gaspar SR MR#: [id number] : 1960 Acct:[id number] Age/Sex: 62 / M Adm Date: 3 Loc: Room: [address] [place] [address] Type: ADM IN Attending Dr: Barbara Rivero [...] on postNSTEMI/PCI metoprolol tartrate. 5. Follow-up in [facility] heart clinic within 10 days. From [...] signed by Rubén Tatum MD> 10/13/22 0902 [facility] Work Phone: 1(503) 848-803103-20-2023 Progress note Author Barbara Rivero [facility] October 12, 2022 2:24pm Note Date/Time October 12, 2022 2:1 2pm [facility] [address] [place] [address] Hospitalist Progress Note Signed Patient: Hector Gaspar SR MR#: [id number] : 1960 Acct:[id number] Age/Sex: 62 / M Adm Date: 3 Loc: Room: [address] [place] [address] Type: ADM IN Attending Dr: Barbara Rivero [...] this time. (3) Ventricular tachycardia seen on drill sergeant: Plan: No further episodes of ventricular tachycardia. [...] signed by Barbara Rivero MD> 10/12/22 1428 [facility] Work Phone: 1(231) 248-625603-20-2023 Progress note Author Rubén Tatum [facility] October 12, 2022 10:00am Note Date/Time October 12, 2022 9:5 9am [facility] [address] [place] [address] Cardiology Progress Note Signed Patient: Hector Gaspar MR#: [id number] : 1960 Acct:[id number] Age/Sex: 62 / M Adm Date: 3 Loc: 4 Room: [address] [place] [address] Type: ADM IN Attending Dr: Barbara Rivero [...] pacing device. (3) Ventricular tachycardia seen on drill sergeant: Assessment/Problem Details: Stable no further wide-complex tachycardia [...] signed by Rubén Tatum MD> 10/12/22 1000 [facility] Work Phone: 1(849) 585-713003-19-2023 Progress note Author Barbara Rivero [facility] October 11, 2022 11:24am Note Date/Time October 11, 2022 11: 15am [facility] [address] [place] [address] Hospitalist Progress Note Signed Patient: Hcetor Gaspar SR MR#: [id number] : 1960 Acct:[id number] Age/Sex: 62 / M Adm Date: 3 Loc: Room: [address] [place] [address] Type: ADM IN Attending Dr: Barbara Rivero [...] smoking cessation. (3) Ventricular tachycardia seen on drill sergeant: Plan: Patient given potassium and magnesium supplement. [...] signed by Barbara Rivero MD> 10/11/22 1124 [facility] Work Phone: 1(667) 230-225203-19-2023 Progress note Author Rubén Tatum [facility] October 11, 2022 9:41am Note Date/Time October 11, 2022 9:3 3am [facility] [address] [place] [address] Cardiology Progress Note Signed Patient: Hector Gaspar MR#: [id number] : 1960 Acct:[id number] Age/Sex: 62 / M Adm Date: 3 Loc: Room: [address] [place] [address] Type: ADM IN Attending Dr: Barbara Rivero [...] % (Auto) 63.8 Lymph % (Auto) 21.8 [place] % (Auto) 10.2 Eos % (Auto) 3.7 Baso % (Auto) 0.5 Nucleat RBC Rel Count 0.1 Neut # (Auto) 4.2 Lymph # (Auto) 1.4 [place] # (Auto) 0.7 Eos # (Auto) 0.2 [...] MPV Neut % (Auto) Lymph % (Auto) [place] % (Auto) Eos % (Auto) Baso % (Auto) Nucleat RBC Rel Count Neut # (Auto) Lymph # (Auto) [place] # (Auto) Eos # (Auto) Baso # [...] AV node (3) Ventricular tachycardia seen on drill sergeant: Assessment/Problem Details: Not entirely certain that this [...] signed by Rubén Tatum MD> 10/11/22 0941 [facility] Work Phone: 1(360) 755-672803-18-2023 Progress note Author Barbara Rivero [facility] October 10, 2022 1:33pm Note Date/Time October 10, 2022 1:3 3pm [facility] [address] [place] [address] Event Note Signed Patient: Hector Gaspar SR MR#: [id number] : 1960 Acct:[id number] Age/Sex: 62 / M Adm Date: 3 Loc: Room: [address] [place] [address] Type: ADM IN Attending Dr: Barbara Rivero [...] <Electronically signed by Barbara Rivero MD> 10/10/221332 [facility] Work Phone: 1(604) 462-411103-18-2023 History of Present illness Narrative* Patient presents to the office ambulatory with steady gait. * This is initial in clinic follow-up at [facility]. * October 10, 2022 transferred to [facility] from [facility] d/t NSTEMI. Managed by with uneventful PCI, [...] medication regimen. He denies medication side effects. [facility] [address] DO Work Phone: [phone]) 164-886903-18-2023 Procedure [facility]03-18-2023 Procedure [facility]03-18-2023 Consult note Author Rubén Tatum [facility] October 10, 2022 9:54am Note Date/Time October 10, 2022 9:5 1am [facility] [address] [place] [address] Cardiology Consult Note Signed Patient: Hector Gaspar SR MR#: [id number] : 1960 Acct:[id number] Age/Sex: 62 / M Adm Date: 3 Loc: 3T Room: [address] [place] [address] Type: ADM IN Attending Dr: Barbara Rivero MD Copies to: MD Barbara Barry MD Stephen M Tann, MD~ Cardiology HPI History of Present Illness Consult Date: 10/10/22 Reason for Consult: Nausea, non-STEMI HPI: Mr. Gaspar is a 62 year old male with multiple cardiac risk factors but no known prior coronary heart disease who presented to [facility] emergency department lastnight complaining of nausea x2 [...] consistent nausea ever since. He presented to [facility] emergency department last evening with these complaints. In the ER at [facility] ECG showed Q waves in the inferolateral [...] trend upward to 6000 and then greater [id number]. Echocardiogram at bedside this morning shows normal [...] unless noted below or in HPI [facility] for [facility]-19?: No Medical [...] Insight: fair Judgment: fair ARIES Risk Score AREIS Risk Score Predictor Historical: 3 or more [...] Lymph # (Auto) 1.4 1.4 (1.00-4.8) x10E3/uL [place] # (Auto) 0.6 0.6 (0.0-0.8) x10E3/uL Eos [...] signed by Rubén Tatum MD> 10/10/22 0954 [facility] Work Phone: 1(888) 478-934803-18-2023 History and physical note Author Galo Dent [facility] October 10, 2022 7:28am Note Date/Time October 10, 2022 7:2 8am [facility] [address] [place] [address] Hospitalist H&P Signed Patient: Hector Gaspar SR MR#: [id number] : 1960 Acct:[id number] Age/Sex: 62 / M Adm Date: 3 Loc: Room: [address] [place] [address] Type: ADM IN Attending Dr: Barbara Rivero MD Copies to: MD Barbara Barry MD Mushtaq Mahmood, MD~ HPI DATE OF EXAMINATION: 10/10/22 CHIEF COMPLAINT: Non-ST elevation NH HISTORY OF PRESENT ILLNESS: Patient is a 62-year-old gentleman with history of hypertension, heavy smoking about 1-1/2 pack for 45 years, COPD, strong family history of coronary artery disease, came to us from [facility] emergency department last night. Patient presented to [...] The ER physician did talk to the cylinder inspector here in [facility]. Patient was started on heparin drip, nitro patch was applied. He was sent to our hospital. Upon arrival in the [facility] patient complained about headache. Nitropatch was [...] % (Auto) 27.5 % (.) 10/10/22 06:10 [place] % (Auto) 11.4 % (.) 10/10/22 06:10 Eos % (Auto) 4.4 % (.) 10/10/22 06:10 Baso % (Auto) 0.6 % (.) 10/10/22 06:10 Nucleat RBC Rel Count 0.1 /100 WBC (0-0.5) 10/10/22 06:10 Neut # (Auto) 2.9 x10E3/uL (1.8-7.7) 10/10/22 06:10 Lymph # (Auto) 1.4 x10E3/uL (1.00-4.8) 10/10/22 06:10 [place] # (Auto) 0.6 x10E3/uL (0.0-0.8) 10/10/22 06:10 [...] heartcath by cardiology today. I have consulted [facility]. He was offered nicotine patch. I have [...] signed by Galo Dent MD> 10/10/22 0728 [facility] Work Phone: [phone]) 617-153702-15-2023 Evaluation note* Encounter Date Diagnosis Assessment Notes [...] in office today. Prior medical notes from [facility] ED and history have been reviewed. At [...] any surgical interventions. Tobacco cessation program at [facility] has been recommended and offered as well as the national Quitline 3-306-KHCD-NOW. We have discussed pharmacologic treatment including nicotine replacement therapy which can lead to a positive nicotine test as well as nicotine free medications both of which will need to be managed by their PCP. We have provided handout for the [facility] Tobacco Cessation Program. This discussion was limited to 5 minutes. Aug, Other See orders for this visit as documented in the electronic medical record. [facility] 01-19-2023 Evaluation note* Encounter Date Diagnosis Assessment Notes Treatment Notes Treatment Clinical Notes Jul, Chronic obstructive pulmonary disease with acute exacerbation (ICD-10 - J44.1) Discussed diagnosis with patient. Medication profile and possible SE reviewed with patient. Take as directed. Keep appt w Dr. Castillo on 08/31. Notify office if not improving or worsening. Patient verbalizes understanding and agrees to treatment plan. [facility] Other 01-05-2023 Evaluation note* Encounter Date Diagnosis Assessment Notes Treatment Notes Treatment Clinical Notes Jul, Chronic obstructive pulmonary disease with acute exacerbation (ICD-10 - J44.1) [facility] Other Discharge summary Author Barbara Rivero [facility] October 13, 2022 2:14pm Note Date/Time October 13, 2022 2:0 9pm [facility] [address] [place] [address] Discharge Summary Signed Patient: Hector Gaspar SR MR#: [id number] : 1960 Acct:[id number] Age/Sex: 62 / M Adm Date: 3 Loc: Room: [address] [place] [address]: Barbara Rivero MD Copies to: [...] doctor or pharmacist, without first calling the cylinder inspector who implanted the stent. If you require [...] weight lifting, stair steppers, etc. until the cylinder inspector approves these activities. Check with the cylinder inspector on your first follow-up visit. CALL YOUR PHYSICIAN at [phone]: -If bleeding should occur from the catheter insertion site- apply pressure to the site then immediately call us. -Report any fever, redness, drainage, increased swelling, or firmness at the catheter insertion site. Some bruising or slight swelling may be present at thetime of discharge. -Should arm or leg become cold, numb, white, or blue, contact the cylinder inspector immediately. -IF you should experience episodes of [...] is recommended. Please call Central Scheduling at [phone] to schedule your appointment.] The attending cylinder inspector or [facility] nurse clinician should provide you with specific instructions regarding activity, diet, medications, and further follow up for you. Follow the medication instructions provided on your discharge. If the dosages and instructions on this sheet differ from the dosage and instructions on the bottle, follow the instructions on the bottle. [facility] is not responsible for incorrect prescription [...] BY MOUTH EVERY DAY Other Ambulatory Orders: AGRICULTURAL EQUIPMENT TEST ENGINEER polysom procedure (Routine) Timeframe: 1 Week Location: Determined by Patient Ordered By: Barbara Rivero Follow Up: [facility] [Outside] (Left message with [facility] regarding need for [...] signed by Barbara Rivero MD> 10/13/22 1414 [facility] Work Phone: Evaluation noteNo assessment information available [facility] Work Phone: Evaluation noteNo InformationNort [employer] Other Evaluation note* Diagnosis Onset Date Resolution Status COPD (chronic obstructive pulmonary disease) acute Heart block AV complete acut e Hypertension acute Hypoxemia acute NSTEMI (non-ST elevated myocardial infarction) acute Sleep apnea in adult acute Tobacco abuse acute Ventricular tachycardia seen on drill sergeant acute [facility] Work Phone: Evaluation note* Diagnosis Atherosclerosis of stillagu[place] coronary artery of [place] heart without angina pectoris Essential hypertension, benign Mixed hyperlipidemia Ischemic cardiomyopathy Other specified forms of chronic ischemic heart disease Past myocardial infarction Old myocardial infarction Moderate chronic obstructive pulmonary disease (CMS/HCC) Chronic airway obstruction, not elsewhere classified Obesity (BMI 35.0-39.9 without comorbidity) Current smoker documented in this encounter [facility] Work Phone: Evaluation note* Diagnosis Onset Date Resolution Status COPD (chronic obstructive pulmonary disease) acute Situational anxiety acute [facility] Work Phone: Evaluation note* Diagnosis Onset Date Resolution Status COPD (chronic obstructive pulmonary disease) acute Situational anxiety acute Hypertension acute Coronary artery disease invo lving stillaguamish heart without angina pectoris acute Hypertension acute Situational anxiety acute [facility] Work Phone: evaluation note* Diagnosis Onset Date Resolution Status Hypertension acute Coronary artery disease invo lving stillaguamish heart without angina pectoris acute Hypertension acute Situational anxiety acute Right knee pain acute Right leg pain acute [facility] Work Phone: Evaluation note* Diagnosis Onset Date Resolution Status Right knee pain acute Right leg pain acute [facility] Work Phone: evaluation note* Diagnosis Abdominal aortic aneurysm (AAA) without rupture, unspecified part ([facility])- Primary Obstructive chronic bronchitis with exacerbation ([facility]) Obstructive chronic bronchitis with exacerbation Obesity with body mass index (BMI) of 30.0 to 39.9 Chronic obstructive pulmonary disease, unspecified COPD type (CMS-HCC) [facility] Diagnosis Abdominal aortic aneurysm (AAA) without rupture, unspecified part ([facility])- Primary Obstructive chronic bronchitis with exacerbation (CMS-HCC) Obstructive chronic bronchitis with exacerbation Obesity with body mass index (BMI) of 30.0 to 39.9 [facility] Diagnosis Abdominal aortic aneurysm (AAA) without rupture, unspecified part ([facility])- Primary Obstructive chronic bronchitis with exacerbation (CMS-HCC) Obstructive chronic bronchitis with exacerbation Obesity with body mass index (BMI) of 30.0 to 39.9 [facility] Diagnosis Infrarenal abdominal aortic aneurysm (AAA) without rupture ([facility])- Primary Bilateral carotid bruits Cigarette smoker Tobacco use disorder [facility] Diagnosis Infrarenal abdominal aortic aneurysm (AAA) without rupture (CMS-HCC)- Primary Bilateral carotid bruits Cigarette smoker Tobacco use disorder Infrarenal abdominal aortic aneurysm (AAA) without rupture ([facility])- Primary Cigarette smoker motivated to quit Bilateral carotid bruits [facility] Diagnosis Preop cardiovascular exam Pre-operative cardiovascular examination Atherosclerosis of still[place] coronary artery of still[place] heart without angina pectoris Ischemic cardiomyopathy Other specified forms of chronic ischemic heart disease Past myocardial infarction Old myocardial infarction Mixed hyperlipidemia Essential hypertension Unspecified essential hypertension Murmur, heart Undiagnosed cardiac murmurs Moderate chronic obstructive pulmonary disease (Multi) Chronic airway obstruction, not elsewhere classified Lung mass Swelling, mass, or lump in chest Obesity (BMI 35.0-39.9 without comorbidity) Current smoker documented in this encounter [facility] Work Phone: Evaluation note* Diagnosis Infrarenal [...] therapeutic drug monitoring [facility] N[facility]ative - Reported* Type Description [...] History appendectomy 05/02/18 Hospitalization History SEE SURGICAL Achievers Other History general Narrative - Reported* Type [...] 3 Stents 09/2022 Hospitalization History SEE SURGICAL Achievers Other Hishpij general Narrative - Reported* Type Description Date [...] Stents 09/2022 Hospitalization History SEE SURGICAL HX Achievers Other History general Narrative - Reported* Type [...] History SEE SURGICAL HX Hospitalization History pneumonia Achievers Other InstructionsNot on filedocumented in this encounter [facility] filedocumented in this encounter [facility] on filedocumented in this encounter [facility] System[facility]ructionsNot on filedocumented in this encounter [facility] SystemReason for referral (narrative)* Consultation (Routine) - Authorized Specialty Diagnoses / Procedures Referred By Yang boothe Referred To Contact Cardiology Diagnoses Atherosclerosis of still[place] coronary artery of still[place] heart without angina pectoris Procedures Follow Up In Cardiology Alok Webber DO [facility], [address] [address] Alok Webber, [facility], [address] [address] Referral ID Status Reason Start Date Expiration Date V isits Requested Visits Authorized [id number] Authorized 09/14/2023 09/13/2024 [address] [facility] Work Phone: Reason for visit Narrative* Consultation (Routine) - Authorized Specialty Diagnoses / Procedures Referred By Contac t Referred To Contact Cardiology Diagnoses Atherosclerosis of still[place] coronary artery of still[place] heart without angina pectoris Procedures Follow Up In Cardiology Alok Webber, [facility], [place] [id number] Phone: tel: fax: Alok Webber, [facility], [address] [address] Phone: tel: fax: Referral ID Status Reason Start Date Expiration Date V isits Requested Visits Authorized [id number] Authorized 09/14/2023 09/13/2024 [address] [facility] Work Phone: Chief Complaint and Reason for Visit Chief Complaint M25.561 Elevated Troponin Reason for Visit COPD (chronic obstru ctive pulmonary disease) Heart block AV complete Hypertension Hypoxemia NSTEMI (non-ST elevated myocardial infarction) Sleep apnea in adult Tobacco abuse Ventricular tachycardia seen on drill sergeant Chief Complaint M25.561 Elevated Troponin I25.10 I10 E78.2 Reason for Visit COPD (chronic obstru ctive pulmonary disease) Heart block AV complete Hypertension Hypoxemia NSTEMI (non-ST elevated myocardial infarction) Sleep apnea in adult Tobacco abuse Ventricular tachycardia seen on drill sergeant Chief Complaint M25.561 Elevated Troponin I25.10 I10 E78.2 j98.11 Reason for Visit COPD (chronic obstru ctive pulmonary disease) Heart block AV complete Hypertension Hypoxemia NSTEMI (non-ST elevated myocardial infarction) Sleep apnea in adult Tobacco abuse Ventricular tachycardia seen on drill sergeant Chief Complaint Tbh Amb Documentation Breathing Issues Dizziness Reason for Visit COPD (chronic obstru ctive pulmonary disease) Situational anxiety Chief Complaint Amb Documentation Breathing Issues Dizziness 1 month follow up pain in right calf Reason for Visit COPD (chronic obstru ctive pulmonary disease) Situational anxiety Hypertension Coronary artery disease involving stillaguamish heart without angina pectoris Hypertension Situational anxiety Chief Complaint Dizziness 1 month follow up pain in right calf right leg swollen and painful Reason for Visit Hypertension Coronary artery disease involving still[place]amish heart without angina pectoris Hypertension Situational anxiety [...] 2012 that has been followed reportedly at [facility] details of which are unknown * Pulmonary medicine outpatient note is reviewed, plan is to proceed with urgent endobronchial biopsyobviously to rule out malignancy. * Based on current guidelines and most recent literature, this is an appropriate indication to withdraw antiplatelet therapy and proceed with urgent endobronchial biopsy for diagnostic purposes, notably his [place] stents that were recently placed have have [...] Infrarenal abdominal aortic aneurysm (AAA) without rupture ([facility]) Bilateral carotid bruits Cigarette smoker Procedures Echo complete W/O contrast Rom Pierre MD [address], [address] [address] Phone: Referral ID Status Reason Start Date Expiration Date V isits Requested Visits Authorized [id number] Pending Review 03/09/2024 03/09/2025 1 1 Specialty Diagnoses / Procedures Referred By Contac t Referred To Contact Diagnoses Bilateral carotid bruits Procedures Vas carotid duplex bilateral Rom Pierre MD [address], [address] [address] Phone: Referral ID Status Reason Start Date Expiration Date V isits Requested Visits Authorized [id number] Pending Review 03/09/2024 03/09/2025 1 1 Specialty Diagnoses / Procedures Referred By Contac t Referred To Contact Radiology Diagnoses Infrarenal abdominal aortic aneurysm (AAA) without rupture ([facility]) Procedures CT angiogram abdomen and pelvis Rom Pierre MD [address], [address] [address] Phone: Referral ID Status Reason Start Date Expiration Date V isits Requested Visits Authorized [id number] Pending Review 03/09/2024 03/09/2025 1 1 Specialty Diagnoses / Procedures Referred By Contac t Referred To Contact Radiology Diagnoses Abdominal aortic aneurysm (AAA) without rupture, unspecified part (CMS-HCC) Obstructive chronic bronchitis with exacerbation (CMS-HCC) Obesity with body mass index (BMI) of 30.0 to 39.9 Chronic obstructive pulmonary disease, unspecified COPD type ([facility]) Procedures CT angiogram abdomen and pelvis Christopher Faith MD [address], [address] [address] Referral ID Status Reason Start Date Expiration Date V isits Requested Visits Authorized [id number] Pending Review 08/22/2023 08/21/2024 1 1 Reason *FU 07/28 5cm AAA - report scanned. Diagnosis 1 Abdominal aortic ane urysm (AAA) without rupture, unspecified part (I71.40) Referral Organization [facility] sunil Referring Provider First Name Brock Referring Provider Last Name Ly Referring Provider Specialty [facility] Referred Organization [facility] Referred Provider Christopher Faith Referred Address [address] [place], [place],[address] Referred Provider Specialty Vascular Mir michelle Referral Priority Routine General Notes Helen Mendez 09:16:43 AM >received today, attachments made, ntoes locked, referral faxed Clinical Notes p: [phone] f: [phone] Additional Source Comments Care Teams (unrecognized sec [...] End: December 13, 2023 Brenda Jolley APRN FRONT OFFICE CLERK-C Attending Provider Act carol Start: December 13, [...] Active Adi Campos MD Attending Provider Active Angledozer Operator Relationship Specialty Start Date End Date Brock Modi MD PCP - General 10/10/22 Team Status: Inactive Member Role Status Dates Brock Modi MD Attending Provider Active St art: August 06, 2023 End: August 06, 2023 Angledozer Operator Relationship Specialty Start Date End Date Brock Modi MD [address] [place] [id number] PCP - General Family Medicine 09/03/21 Angledozer Operator Relationship Specialty Start Date End Date Brock Modi MD [address] [place] [address] PCP - General Family Medicine 09/03/21 Angledozer Operator Relationship Specialty Start Date End Date Brock Modi MD [address] [place] [address] PCP - General Family Medicine 09/03/21 Angledozer Operator Relationship Specialty Start Date End Date Brock Modi MD [address] [place] [address] PCP - General Family Medicine 09/03/21 Angledozer Operator Relationship Specialty Start Date End Date Seymour Harper MD [address] [place] [address], [place] [address] PCP - General Family Medicine 09/12/24 Angledozer Operator Relationship Specialty [place] [address] [place] [address], [place] [address] PCP - General Family Medicine 09/20/24 Angledozer Operator Relationship Specialty Start [place] [address] [place] [address], [place] [address] PCP - General Family Medicine 09/12/24 Angledozer Operator Relationship Specialty Start Date End Date Seymour Harper MD [address] [place] [address] PCP - General Family Medicine 09/12/24 Team [...] content) Reason Comments AAA, CT abd/pelvis at [employer], carotids Prom edica Reason Comments Abdominal aortic aneurysm (AAA) without rupture, unspecifie 6 month follow up with testing CT angiog mic abd/pel and POST GRADUATE INTERN Reason Comments Follow-up Yearly follow up. Te sting was in 08/2022. Specialty Diagnoses / Procedures Referred By Yang boothe Referred To Contact Vascular Surgery Diagnoses Abdominal aortic aneurysm (AAA) without rupture, unspecified part ([facility]) Christopher Faith MD [address] [address] Christopher Faith MD [address] [place] [address] Referral ID Status Reason Start Date Expiration Date Visits Requested Visits Authorized [id number] Pending Review Specialty Services Required 3 07/21/2024 1 1 Reason Comments Follow-up 6m US resultTBHsleep apnea discussionrefillAlprazolamRecheck Right Knee* Reason for Visit: * Holter Monitor: * HECTOR is here for the application of a 48 hour Holter monitor. * Ordering Physician: JANINE CUNHA * Diagnosis: CAD SINUS PAUSE * [facility] equipment agreement signed. HECTOR understands monitor is to be returned on: 11-03-22 * Monitor number [id number] applied. * Holter monitor returned and downloaded. messagePulmonary Office NotesRef by Dr. Brock Modi for COPDIN[facility] - HAD HEART ATTACKRight [...] DATE CREATED AUTHOR AUTHOR'S ORGANIZ ATION 04/09/2023 [facility] [place] DATE CREATED AUTHOR AUTHOR'S ORGANIZ ATION 09/22/2024 [facility] DATE CREATED AUTHOR AUTHOR'S ORGANIZ ATION 11/15/2024 [facility] DATE CREATED AUTHOR AUTHOR'S ORGANIZ ATION 11/30/2024 [facility] DATE CREATED AUTHOR AUTHOR'S ORGANIZ ATION 12/19/2024 [facility] DATE CREATED AUTHOR AUTHOR'S ORGANIZ ATION 12/21/2024 [facility] [employer] FOR RECORDS PERTAINING TO [...] BE BASED ON THE PRIMARY CLINICAL RECORDS. [facility] [employer] provides no warranty or guarantee of the accuracy or completeness of information in this document.
[2025-03-17 21:26] VITALS: PULSE 84
--- NOTE | 2025-03-17 21:38 | ED.ANXIETY1 ---
HPI - Anxiety General Chief Complaint: Anxiety Stated Complaint: PANIC ATTACK Time Seen by Provider: 03/17/25 21:22 Source: patient Mode of arrival: walk-in Limitations: no limitations History of Present Illness HPI narrative: history of COPD and anxiety . still smoking cigarettes. States today he feels anxious and short of breath. Did not use his inhaler before coming. Denies chest or abdominal pain Related Data Home Medications ?Medication ?Instructions ?Recorded ?Confirmed aspirin 81 mg chewable tablet 1 tab PO DAILY 01/24/23 03/17/25 atorvastatin 80 mg tablet 80 mg PO QPM 01/24/23 03/17/25 clopidogrel 75 mg tablet (Plavix) 75 mg PO DAILY 10/09/23 03/17/25 metoprolol tartrate 25 mg tablet 25 mg PO BID 11/16/24 03/17/25 nitroglycerin 0.4 mg sublingual 0.4 mg sublingual Q5M 11/16/24 03/17/25 tablet phenazopyridine 200 mg tablet 200 mg PO TIDWMEAL 11/25/24 11/25/24 valsartan 40 mg tablet 40 mg PO DAILY 11/25/24 03/17/25 Previous Rx's ?Medication ?Instructions ?Recorded albuterol sulfate 90 mcg/actuation 2 inh inhalation Q4H PRN shortness 08/10/24 aerosol inhaler of breath or wheezing #8.5 grams sulfamethoxazole 800 1 tab PO BID 7 days #14 tabs 11/25/24 mg-trimethoprim 160 mg tablet (Bactrim DS) ondansetron 4 mg disintegrating 4 mg PO Q6H PRN nausea and 03/14/25 tablet vomiting #20 tabs Allergies Allergy/AdvReac Type Severity Reaction Status Date / Time Penicillins Allergy Severe Hives Verified 03/17/25 21:26 pneumonia shot AdvReac Intermediate Unknown Uncoded 03/17/25 21:26 Review of Systems ROS Status of ROS 10 or more systems reviewed and unremarkable except as noted in history and below [facility] Medical History (Updated 03/18/25 @ 00:57 by Fermin Rodriguez MD) Hypercholesterolemia ?E78.00 - Pure hypercholesterolemia, unspecified (ICD-10) COPD (chronic obstructive pulmonary disease) ?J44.9 - Chronic obstructive pulmonary disease, unspecified (ICD-10) Social History Smoking status: Current every day smoker Little interest or pleasure in doing things: not at all Feeling down, depressed, or hopeless: not at all Exam Constitutional Vital Signs, click to edit/add: Last Vital Signs Temp 98.4 F 03/17/25 21:20 Pulse 70 03/17/25 23:51 Resp 18 03/17/25 23:51 BP 138/98 H 03/17/25 23:51 Pulse Ox 96 03/17/25 23:51 O2 Del Method Room Air 03/17/25 23:51 Common normals: no apparent distress, oriented x3, no limitations, healthy appearing, alert and well nourished HENMT Common normals: normocephalic and head/scalp atraumatic Eye Common normals: EOMs intact bilaterally and conjunctivae normal Respiratory Common normals: normal respiratory effort, no retractions, no use of accessory muscles and clear to auscultation bilaterally Cardio Common normals: regular rate, regular rhythm, S1 normal heart sound and S2 normal heart sound GI Common normals: Normal to inspection, nondistended, normoactive bowel sounds present, soft to palpation and non-tender Extremity Common normals: normal to inspection and full ROM Neuro Common normals: oriented x3, CN's II-XII intact bilaterally and moves all extremities Psych Appearance: grossly normal Course Vital Signs Vital signs: Vital Signs Temperature 98.4 F 03/17/25 21:20 Pulse Rate 90 03/17/25 21:20 Respiratory Rate 22 H 03/17/25 21:20 Blood Pressure 161/88 H 03/17/25 21:20 Temperature 98.4 F 03/17/25 21:20 Pulse Rate 70 03/17/25 23:51 Respiratory Rate 18 03/17/25 23:51 Blood Pressure 138/98 H 03/17/25 23:51 Pulse Oximetry 96 03/17/25 23:51 Oxygen Delivery Method Room Air 03/17/25 23:51 MDM - Anxiety MDM Narrative Medical decision making narrative: history of emphysema and anxiety. Treated with vistaril and duoneb and he is now feeling better. d-dimer positive. CTA with empohysema, mucous plug with associated RLL atelectasis and air bronchograms. Patient with cough productive of phlegm. Troponin neg. will treat with zpak to cover for his productive cough. His anxiety is better after one dose of vistaril Lab Data Labs: Lab Results 03/17/25 Range/Units 21:40 WBC 5.8 (4.0-11.0) 10^3/uL RBC 4.54 L (4.70-6.10) 10^6/uL Hgb 13.6 L (14.0-18.0) g/dL Hct 40.0 L (42.0-54.0) % MCV 88.1 (80.0-94.0) fL MCH 30.0 (25.9-34.0) pg MCHC 34.0 (29.9-35.2) g/dL RDW 13.3 (11.0-15.0) % Plt Count 197 (150-450) 10^3/uL MPV 9.3 L (9.5-13.5) fL Neut % (Auto) 57.4 (43.0-75.0) % Lymph % (Auto) 25.0 (20.5-60.0) % [place] % (Auto) 13.4 H (1.7-12.0) % Eos % (Auto) 3.4 (0.9-7.0) % Baso % (Auto) 0.5 (0.2-2.0) % Neut # (Auto) 3.4 (1.4-6.5) 10^3/uL Lymph # (Auto) 1.5 (1.2-3.8) 10^3/uL [place] # (Auto) 0.8 (0.3-0.8) 10^3/uL Eos # (Auto) 0.2 (0.0-0.7) 10^3/uL Baso # (Auto) 0.0 (0.0-0.1) 10^3/uL Abs Immat Gran (auto) 0.02 (0.00-0.03) 10^3/uL Imm/Tot Granulo (auto) 0.3 (0.0-0.5) % D-Dimer 3.80 H* (<=0.59) mg/L FEU Sodium 137 (136-145) mmol/L Potassium 4.0 (3.5-5.1) mmol/L Chloride 105 (98-107) mmol/L Carbon Dioxide 28.2 (21.0-32.0) mmol/L Anion Gap 7.8 BUN 16.0 (7.0-18.0) mg/dL Creatinine 1.30 (0.70-1.30) mg/dL Est GFR ( Amer) >60 (>=60 mL/min/1.73m^2) Est GFR (Non-Af Amer) 56 L (>=60 mL/min/1.73m^2) BUN/Creatinine Ratio 12.3 Glucose 114 H (74-106) mg/dL Calcium 8.9 (8.5-10.1) mg/dL Troponin I High Sens 12.1 (4.0-76.1) pg/mL Discharge Plan Discharge Chief Complaint: Anxiety Clinical Impression: Anxiety, Acute exacerbation of chronic obstructive pulmonary disease Patient Disposition: Home, Self-Care Prescriptions / Home Meds: No Action aspirin 81 mg tablet,chewable 1 tab PO DAILY atorvastatin 80 mg tablet 80 mg PO QPM albuterol sulfate 90 mcg/actuation HFA aerosol inhaler 2 inh inhalation Q4H PRN (Reason: shortness of breath or wheezing) Qty: 8.5 0RF metoprolol tartrate 25 mg tablet 25 mg PO BID nitroglycerin 0.4 mg tablet, sublingual 0.4 mg sublingual Q5M Rx Instructions: do not exceed 3 doses per episode phenazopyridine 200 mg tablet 200 mg PO TIDWMEAL Rx Instructions: started on 11/24/24 for 2 days valsartan 40 mg tablet 40 mg PO DAILY sulfamethoxazole-trimethoprim [Bactrim DS] 800-160 mg tablet 1 tab PO BID 7 Days Qty: 14 0RF clopidogrel [Plavix] 75 mg tablet 75 mg PO DAILY ondansetron 4 mg tablet,disintegrating 4 mg PO Q6H PRN (Reason: nausea and vomiting) Qty: 20 0RF Print Language: Brazilian Instructions: COPD (Chronic Obstructive Pulmonary Disease) (ED), Anxiety (ED) Additional Instructions: follow up with Dr Davison next week Referrals: Sukumar Davison MD [Primary Care Provider, Family Practice] - 1 week
[2025-03-17 21:46] LABS: Hematocrit 40.0 % (42.0-54.0); Hemoglobin 13.6 g/dL (14.0-18.0); Immature Granulocytes Abs Auto 0.02 10^3/uL (0.00-0.03); Immature Granulocytes Pct Auto 0.3 % (0.0-0.5); Lymphocytes Absolute Auto 1.5 10^3/uL (1.2-3.8); Mean Corpuscular HGB Conc 34.0 g/dL (29.9-35.2); Mean Corpuscular Hemoglobin 30.0 pg (25.9-34.0); Mean Corpuscular Volume 88.1 fL (80.0-94.0); Platelet Count 197 10^3/uL (150-450); Red Blood Count 4.54 10^6/uL (4.70-6.10); White Blood Count 5.8 10^3/uL (4.0-11.0)
[2025-03-17 22:02] VITALS: PULSE 76; O2SAT 94
[2025-03-17] MEDS: IPRATROPIUM/ALBUTEROL SULFATE 3 ML AMPUL.NEB IH (22:02)
[2025-03-17 22:05] LABS: Anion Gap 7.8; Blood Urea Nitrogen 16.0 mg/dL (7.0-18.0); Calcium 8.9 mg/dL (8.5-10.1); Carbon Dioxide 28.2 mmol/L (21.0-32.0); Chloride 105 mmol/L (98-107); Estimated GFR (African America >60 (>=60 mL/min/1.73m^2); Estimated GFR (Non-African Ame 56 (>=60 mL/min/1.73m^2); Glucose 114 mg/dL (74-106); Potassium 4.0 mmol/L (3.5-5.1); Sodium 137 mmol/L (136-145)
[2025-03-17] MEDS: 0.9 % SODIUM CHLORIDE 1,000 ML 1000 ML IV (22:15)
--- NOTE | 2025-03-17 22:57 | ECG_ITS ---
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
[2025-03-17 23:51] VITALS: BP 138/98; PULSE 70; O2SAT 96
[2025-03-18] MEDS: AZITHROMYCIN 250 MG TABLET 500 MG PO (01:12)
[2025-03-18 01:15] VITALS: BP 141/82; PULSE 80; O2SAT 94
== END 2025-03-18 01:18 | disposition home or self-care (01) ==
PROVIDERS: Emergency Provider Internal Medicine; PCP Family Medicine
DX: J44.1 Chronic obstructive pulmonary disease with (acute) exacerbation (principal); F41.9 Anxiety disorder, unspecified; F17.210 Nicotine dependence, cigarettes, uncomplicated; J43.9 Emphysema, unspecified; R79.89 Other specified abnormal findings of blood chemistry
CPT/HCPCS: 36415; 71045; 71275; 80048; 84484; 85025; 85378; 93005; 94640; 99285; Q9967